=== PATIENT | male | born 1955 | race Caucasian/White ===

== ENCOUNTER 2023-02-18 16:20 | Emergency (ER) | payer BC, SELFPAY ==
[2023-02-18 16:21] VITALS: BP 149/75; PULSE 70; RESP 18; TEMP 36.8; O2SAT 98; BMI 29.7
[2023-02-18 17:19] LABS: Apearance,Urine Clear (Clear); Bilirubin,Urine Negative (Negative); Blood, Urine Negative (Negative); Color,Urine Yellow (Yellow); Glucose,Urine (UA) Negative (Negative); Ketones,Urine Negative (Negative); PH,Urine 5.5 (5.0-8.5); Protein,Urine Negative (Negative); Specific Gravity, Urine 1.005 (1.005-1.030); UTC Leukocyte Esterase,Urine Negative (Negative); UTC Nitrate,Urine Negative (Negative); Urobilinogen,Urine 0.2 EU/dl (0.2)
--- NOTE | 2023-02-18 17:38 | EXP.UTC ---
Discharge Plan Disposition Patient Disposition: Home, Self-Care Condition: Good Prescriptions Prescriptions: New meclizine 25 mg tablet 25 mg PO TID PRN (Reason: dizziness or vertigo) Qty: 15 0RF fluticasone propionate [Flonase Allergy Relief] 50 mcg/actuation spray,suspension 1 - 2 spray intranasal DAILY Qty: 16 0RF Rx Instructions: administer into each nostril daily Referrals Follow up/Referrals: Provider,Referral, MD [Primary Care Provider] - See instructions Activity Restrictions/Add. Instructions Additional Instructions/Restrictions: Slow steady movements and make sure to sit on edge of bed before standing to make sure that you are not going to get dizzy If you have any chest pain, feeling of heart beating hard or irregular go straight to ER If any confusion, headache or dizziness gets worse go straight to ER FOllow up with your Family Doctor if no improvement or any worsening of symptoms Take medication as prescribed Do not drive while feeling dizzy or if you took the medication it may make you drowsy Clinical Impressions Clinical Impression: Dizziness Instructions Patient Instructions: Vertigo, DI for Vertigo, Meclizine Discharge ED Provider: Barbara Collado [facility] General Stated complaint: dizzy Mode of Arrival: Ambulatory Source of Information: Patient Limitations: No Limitations Time Seen by Provider: 02/18/23 16:55 Description of Symptoms (Recalled from Triage Doc. by RN): Patient stated he got dizzy at work at lunch time. Says its better not but he wanted to get it checked out. 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 and when he turned back he felt like road felt tilted States that he shook his head and felt like it started spinning States that he stopped and sit there for a little bit and it started getting better States that he is feeling better now and only feels dizzy when he turns his head States that he did this about 12 yrs ago and they told him it was his inner ear Denies chest pain denies SOA Denies palpitations Denies vision changes Related Data Previous Rx's Medication Instructions Recorded fluticasone propionate 50 1 - 2 spray intranasal DAILY #16 02/18/23 mcg/actuation nasal grams spray,suspension (Flonase Allergy Relief) meclizine 25 mg tablet 25 mg PO TID PRN dizziness or 02/18/23 vertigo #15 tabs Allergies Allergy/AdvReac Type Severity Reaction Status Date / Time No Known Allergies Allergy Verified 02/18/23 16:45 Worker's Comp Is this a Worker's Comp case?: No PFSH [facility] Disclaimer: The information contained in this section may have been updated after the patient was seen, as this information can be updated by other users. Social History Smoking Status: Never smoker alcohol intake: never current occupational status: employed Travel in the last 8 weeks: None ROS Obtained: Yes All systems reviewed & no additional complaints except as documented and Yes Systems reviewed as appropriate & no additional complaints except as documented Constitutional Constitutional: Reports system reviewed and no additional complaints, except as documented and Reports as per HPI ENT Ears, Nose, Mouth, and Throat: Reports system reviewed and no additional complaints, except as documented, Reports as per HPI and Reports dizziness Cardiovascular Cardiovascular: Reports system reviewed and no additional complaints, except as documented, Reports as per HPI, Denies chest pain, Denies chest pain at rest, Denies dyspnea, Denies dyspnea on exertion, Denies irregular heart rhythm, Denies leg edema, Denies orthopnea, Denies palpitations and Denies paroxysmal noctu
[2023-02-18 17:57] VITALS: BP 149/75; PULSE 70; RESP 18; TEMP 36.8; O2SAT 98
== END 2023-02-18 17:58 | disposition home or self-care (01) ==
PROVIDERS: Emergency Provider Nurse Practitioner
DX: R42 Dizziness and giddiness (principal)
CPT/HCPCS: 81003; 99204; 99212; G0463

== ENCOUNTER 2023-08-27 14:02 | Emergency (ER) | payer BC, SELFPAY ==
[2023-08-27 14:04] VITALS: BP 138/88; PULSE 70; RESP 19; TEMP 37; O2SAT 98; BMI 29.7
--- NOTE | 2023-08-27 14:38 | ED_ITS ---
Discharge Plan Disposition Patient Disposition: Home, Self-Care Condition: Good Prescriptions Prescriptions: New azithromycin [Zithromax Z-Jesse] 250 mg tablet See Rx Instructions .ROUTE .COMPLEX 5 Days Qty: 6 0RF Rx Instructions: For 250 mg dose pack: take 500 mg today (day 1), then 250 mg for 4 days (days 2-5) No Action meclizine 25 mg tablet 25 mg PO TID PRN (Reason: dizziness or vertigo) Qty: 15 0RF fluticasone propionate [Flonase Allergy Relief] 50 mcg/actuation spray,suspension 1 - 2 spray intranasal DAILY Qty: 16 0RF Rx Instructions: administer into each nostril daily Referrals Follow up/Referrals: Brittaney Brito PA [Primary Care Provider] - See instructions Activity Restrictions/Add. Instructions Additional Instructions/Restrictions: *Monitor Temp, Over the counter Motrin or Tylenol as directed/as needed Tylenol every 4 hours and Motrin every 6 hours (as long as your family doctor has told you that you can take it) for fever or pain. and straight to ER if unable to lower temp less than 101.0 after medication given *Warm salt water gargles may help to soothe the throat *Throat Lozenges? *Warm fluids like tea with honey may help to soothe the throat? *Sleep elevated *Humidifier/Vaporizer Your throat swab was sent for culture. Those results are typically sent to your primary care. Be sure to follow up in 2-3 days with your family doctor/primary care physician if no improvement so they can review those result and treat if necessary. If you don?t have a primary care doctor, I recommend you get one but in the mean time, you will have to return to a walk in clinic Follow up IMMEDIATELY for new or worsening symptoms or no Noticeable improvement over the next 48-72 hours. 911 for difficulty breathing or swallowing Clinical Impressions Clinical Impression: Pharyngitis Qualifiers: Pharyngitis/tonsillitis etiology: unspecified etiology Qualified Code(s): J02.9 - Acute pharyngitis, unspecified Stand Alone Forms Stand Alone Forms: Work/School Release Instructions Patient Instructions: Sore Throat Discharge ED Provider: Barbara Collado [facility] HPI General Stated complaint: Cough, st, congestion, body ache Mode of Arrival: Ambulatory Source of Information: Patient Limitations: No Limitations Time Seen by Provider: 08/27/23 14:39 Description of Symptoms (Recalled from Triage Doc. by RN): Patient complaint of dry cough, congestion, body aches and raw throat for 2 days. HEENT Symptoms (Recalled from RN notes): Yes Resp Symptoms (Recalled from RN notes): No Skin Symptoms (Recalled from RN notes): No MS Symptoms (Recalled from RN notes): No Functional Status (Recalled from RN notes): wnl History of Present Illness Provider Complaint: Patient states that for the last couple of days he has been having dry cough, headache, nasal congestion, sore throat and feeling bad States that today his throat was hurting worse and felt raw and irritated so he came in to get checked Related Data Previous Rx's Medication Instructions Recorded fluticasone propionate 50 1 - 2 spray intranasal DAILY #16 02/18/23 mcg/actuation nasal grams spray,suspension (Flonase Allergy Relief) meclizine 25 mg tablet 25 mg PO TID PRN dizziness or 02/18/23 vertigo #15 tabs azithromycin 250 mg tablet See Rx Instructions PO .COMPLEX 5 08/27/23 (Zithromax Z-Jesse) days #6 tabs Allergies Allergy/AdvReac Type Severity Reaction Status Date / Time No Known Allergies Allergy Verified 02/18/23 16:45 Worker's Comp Is this a Worker's Comp case?: No [facility] Disclaimer: The information contained in this section may have been updated after the patient was seen, as this information can be updated by other users. Social History (Updated 02/18/23 @ 20:26 by Barbara Collado APRN) Smoking Status: Never smoker alcohol intake: never current occupational status: employed Travel in the last 8 weeks: None ROS Obtained: Yes All systems reviewed & no additional complaints except as documented and Yes Systems reviewed as appropriate & no additional complaints except as documented Constitutional Constitutional: Reports system reviewed and no additional complaints, except as documented, Reports as per HPI, Reports body ache and Reports headache(s) ENT Ears, Nose, Mouth, and Throat: Reports system reviewed and no additional complaints, except as documented, Reports as per HPI, Reports headache(s), Re ports nasal congestion, Reports nasal discharge and Reports sore throat Cardiovascular Cardiovascular: Reports system reviewed and no additional complaints, except as documented and Reports as per HPI Respiratory Respiratory: Reports system reviewed and no additional complaints, except as documented, Reports as per HPI and Reports cough Gastrointestinal Gastrointestingal: Reports system reviewed and no additional complaints, except as documented and as per HPI Musculoskeletal Musculoskeletal: Reports system reviewed and no additional complaints, except as documented and Reports as per HPI Neurologic Neurologic: Reports headache(s) Physical Exam General General appearance: alert and in no apparent distress ENT ENT exam: Present mucous membranes moist Expanded ENT Exam Nose exam: Present sinus tenderness Throat exam: Present other (Pharyngeal erythema noted with PND) Respiratory Respiratory exam: Present normal lung sounds bilaterally; Absent respiratory distress or wheezes Cardiovascular Cardiovascular exam: Present regular rate, normal rhythm and normal heart sounds Abdominal Exam Abdominal exam: Present soft and normal bowel sounds; Absent distention or tenderness Neurological Exam Neurological exam: Present alert, oriented X3 and normal gait Medical Decision Making Evens Inquiry Pt receiving controlled substance: No Evens was queried for this patient: No Vital Signs: 08/27/23 14:04 Temperature 98.6 F Temperature Source Oral Pulse Rate [Radial] 70 Respiratory Rate 19 Blood Pressure [Right Arm] 138/88 Blood Pressure Mean [Right Arm] 104 Blood Pressure Source [Right Arm] Automatic Cuff Blood Pressure Position [Right Arm] Sitting 02 Sat by Pulse Oximetry 98 Oxygen Delivery Method Room Air Lab Data Lab results reviewed: Yes I reviewed the patient's lab results.
[2023-08-27 14:47] LABS: UTC Strep Screen (Rapid) Negative (Negative)
[2023-08-27 14:48] LABS: UTC Influenza A Antigen Negative (Negative); UTC Influenza B Antigen Negative (Negative)
[2023-08-27 14:54] VITALS: BP 138/88; PULSE 70; RESP 19; TEMP 37; O2SAT 98
== END 2023-08-27 14:55 | disposition home or self-care (01) ==
PROVIDERS: Emergency Provider Nurse Practitioner; PCP Student in an Organized Health Care Education/Training Program
DX: J02.9 Acute pharyngitis, unspecified (principal); R05.9 Cough, unspecified; R09.81 Nasal congestion; R51.9 Headache, unspecified; M79.18 Myalgia, other site; R53.81 Other malaise
CPT/HCPCS: 87804; 87880; 99212; 99214; G0463

== ENCOUNTER 2024-06-25 16:20 | Outpatient (CLI) | payer BC, SELFPAY ==
[2024-06-25 18:13] LABS: Basophils # 0.1 K/mm3 (0-0.2); Basophils % 0.9 % (0.1-2.0); Eosinophils # 0.3 K/mm3 (0.0-0.4); Eosinophils % 6.3 % (0.1-12.0); Hemoglobin 15.5 g/dL (14.1-18.0); Lymphocytes # 1.2 K/mm3 (0.7-4.5); Lymphocytes % 23.1 % (10-50); Mean Corpuscular HGB Conc 32.2 g/dL (31.8-35.4); Mean Corpuscular Hemoglobin 28.6 pg (27.0-31.2); Mean Corpuscular Volume 88.7 fl (80-94); Mean Platelet Volume 10.7 fl (7.4-10.4); Monocytes # 0.4 K/mm3 (0.1-1.0); Monocytes % 7.5 % (1.7-9.3); Neutrophils # 3.3 K/mm3 (1.8-7.8); Neutrophils % 62.2 % (37.0-80.0); Platelet Count 182 K/mm3 (142-424); Red Blood Count 5.42 M/mm3 (4.60-6.20); Red Cell Distribution Width 14.7 % (11.5-17.5); White Blood Count 5.4 K/mm3 (4.8-10.8)
[2024-06-25 18:28] LABS: Alanine Aminotransferase 38 U/L (12-78); Albumin Level 4.3 g/dl (3.5-5.0); Albumin/Globulin Ratio 1.8 (1.1-1.8); Alkaline Phosphatase 94 U/L (38-126); Anion Gap 11.7 mEq/L (5-15); Aspartate Amino Transferase 34 U/L (17-59); Bilirubin,Total 0.7 mg/dl (0.2-1.3); Blood Urea Nitrogen 18 mg/dl (9-20); Carbon Dioxide 24 mmol/L (22.0-30.0); Chloride 108 mmol/L (98-107); Chol/HDL Ratio 5.7 (1-3.5); Cholesterol 250 mg/dl (140-200); Estimated Glomerular Filt Rate 96 ml/min (>60); GFR (African American) 116 ML/MIN (>60); Globulin 2.4 g/dL (1.3-3.2); Glucose 80 mg/dl (74-100); HDL Cholesterol 44 mg/dl (40-60); Potassium 4.7 mmoL/L (3.5-5.1); Sodium 139 mmol/L (136-145); Total Protein,Serum 6.7 g/dl (6.3-8.2); Triglycerides 217 mg/dl (30-150); VLDL Cholesterol 43 mg/dL (0-40)
[2024-06-25 18:38] LABS: Direct LDL Cholesterol 174.01 mg/dL (100-129)
[2024-06-25 18:44] LABS: Free T4 (Free Thyroxine) 0.91 ng/dl (0.78-2.19); Hemoglobin A1C 5.8 % (4.0-6.0)
[2024-06-25 18:45] LABS: 25-OH Vitamin D, Total 21.9 ng/mL (30-100)
[2024-06-25 19:02] LABS: Prostate Specific Ag Screen 2.5 ng/ml (0.0-4.0); Thyroid Stimulating Hormone 2.01 uIU/mL (0.465-4.68)
== END 2024-06-25 23:59 | disposition home or self-care (01) ==
LOC: LAB.DROPOF 06-28 16:20
PROVIDERS: PCP Student in an Organized Health Care Education/Training Program; Visit Provider Student in an Organized Health Care Education/Training Program
DX: Z12.5 Encounter for screening for malignant neoplasm of prostate (principal); Z13.1 Encounter for screening for diabetes mellitus; Z13.21 Encounter for screening for nutritional disorder; I10 Essential (primary) hypertension; Z86.39 Personal history of other endocrine, nutritional and metabolic disease; E78.5 Hyperlipidemia, unspecified; E55.9 Vitamin D deficiency, unspecified
CPT/HCPCS: 80050; 80053; 80061; 82306; 83036; 84439; 84443; 85025; G0103

== ENCOUNTER 2024-08-02 09:03 | Outpatient (CLI) | payer BC, SELFPAY ==
--- NOTE | 2024-08-02 09:07 | XR_ITS ---
FINAL REPORT CLINICAL HISTORY: neck pain, R shoulder pain COMPARISON: None FINDINGS: RIGHT SHOULDER 4 views demonstrate no acute fracture or dislocation. There is mild acromioclavicular joint degenerative change. The visualized bony structures are well aligned. No soft tissue abnormality is seen. IMPRESSION: Degenerative change without acute process. Reviewed, Interpreted and Dictated by Jonel Galvez III, MD Transcribed by Maricarmen De Jesus Authenticated and [facility]
--- NOTE | 2024-08-02 09:07 | XR_ITS ---
FINAL REPORT CLINICAL HISTORY: neck pain, R shoulder pain COMPARISON: None FINDINGS: CERVICAL SPINE 5 views of the cervical spine were obtained. There is no acute fracture. There is no malalignment. There is moderate left neuroforaminal narrowing at C6-7 and mild right neuroforaminal narrowing at C6-7 and C6-7. There is mild and moderate degenerative change. Multilevel osteophytes are noted. There are chronic calcifications posterior to the lower cervical spine. IMPRESSION: Degenerative changes without acute process. Reviewed, Interpreted and Dictated by Jonel Galvez III, MD Transcribed by Maricarmen De Jesus Authenticated and [facility]
== END 2024-08-02 23:59 | disposition home or self-care (01) ==
LOC: RAD 09:05
PROVIDERS: PCP Student in an Organized Health Care Education/Training Program; Visit Provider Student in an Organized Health Care Education/Training Program
DX: M54.2 Cervicalgia (principal); M25.511 Pain in right shoulder
CPT/HCPCS: 72050; 73030

== ENCOUNTER 2024-10-04 08:40 | Outpatient (CLI) | payer BC, MEDICARE, SELFPAY ==
[2024-10-04 09:09] LABS: Basophils # 0.1 K/mm3 (0-0.2); Basophils % 0.8 % (0.1-2.0); Eosinophils # 0.2 K/mm3 (0.0-0.4); Eosinophils % 3.4 % (0.1-12.0); Hematocrit 46.6 % (42.0-52.0); Hemoglobin 15.2 g/dL (14.1-18.0); Lymphocytes # 1.3 K/mm3 (0.7-4.5); Mean Corpuscular HGB Conc 32.6 g/dL (31.8-35.4); Mean Corpuscular Hemoglobin 27.8 pg (27.0-31.2); Mean Corpuscular Volume 85.2 fl (80-94); Mean Platelet Volume 10.6 fl (7.4-10.4); Monocytes # 0.5 K/mm3 (0.1-1.0); Monocytes % 8.3 % (1.7-9.3); Neutrophils # 3.9 K/mm3 (1.8-7.8); Neutrophils % 65.3 % (37.0-80.0); Platelet Count 180 K/mm3 (142-424); Red Blood Count 5.47 M/mm3 (4.60-6.20); Red Cell Distribution Width 14.6 % (11.5-17.5); White Blood Count 5.9 K/mm3 (4.8-10.8)
[2024-10-04 09:27] LABS: Alanine Aminotransferase 27 U/L (12-78); Albumin Level 4.6 g/dl (3.5-5.0); Albumin/Globulin Ratio 2.2 (1.1-1.8); Alkaline Phosphatase 82 U/L (38-126); Anion Gap 10.7 mEq/L (5-15); Aspartate Amino Transferase 33 U/L (17-59); Bilirubin,Total 0.8 mg/dl (0.2-1.3); Blood Urea Nitrogen 16 mg/dl (9-20); Calcium 9.2 mg/dl (8.4-10.2); Carbon Dioxide 27 mmol/L (22.0-30.0); Chloride 105 mmol/L (98-107); Chol/HDL Ratio 7.4 (1-3.5); Cholesterol 272 mg/dl (140-200); Estimated Glomerular Filt Rate 96 ml/min (>60); GFR (African American) 116 ML/MIN (>60); Globulin 2.1 g/dL (1.3-3.2); Glucose 90 mg/dl (74-100); HDL Cholesterol 37 mg/dl (40-60); Potassium 4.7 mmoL/L (3.5-5.1); Sodium 138 mmol/L (136-145); Total Protein,Serum 6.7 g/dl (6.3-8.2); Triglycerides 335 mg/dl (30-150); VLDL Cholesterol 67 mg/dL (0-40)
[2024-10-04 09:39] LABS: Direct LDL Cholesterol 169.41 mg/dL (100-129)
[2024-10-04 09:43] LABS: INR 0.91 (0.9-1.1); Prothrombin Time 10.1 seconds (9.2-12.1)
[2024-10-04 09:44] LABS: 25-OH Vitamin D, Total 24.1 ng/mL (30-100)
[2024-10-06 08:50] LABS: Peripheral Smear Review Scanned Result
[2024-10-06 15:09] LABS: Factor VIII Activity 73 % (56-140); von Willebrand Factor (vWF) Ag 72 % (50-200)
== END 2024-10-04 23:59 | disposition home or self-care (01) ==
PROVIDERS: PCP Student in an Organized Health Care Education/Training Program; Visit Provider Student in an Organized Health Care Education/Training Program
DX: E55.9 Vitamin D deficiency, unspecified (principal); E78.49 Other hyperlipidemia; R04.0 Epistaxis; I10 Essential (primary) hypertension
CPT/HCPCS: 36415; 80053; 80061; 82306; 85025; 85240; 85245; 85610; 85730

== ENCOUNTER 2024-10-21 08:50 | Day surgery (SDC) | payer BC, MEDICARE, SELFPAY ==
[2024-10-19 15:23] VITALS: BMI 30.5
[2024-10-21 09:23] VITALS: BP 154/60; PULSE 73; RESP 18; TEMP 36.8; O2SAT 96
--- NOTE | 2024-10-21 09:51 | P.PNANES_ITS ---
[facility] Disclaimer: The information contained in this section may have been updated after the patient was seen, as this information can be updated by other users. Medical History Hyperlipemia Hypertension Surgical History H/O colonoscopy with polypectomy Hx of shoulder surgery Right- shoulder H/O right knee surgery orthoscopic Family History Grandmother Cancer skin Father Hypertension Coronary artery disease Mother Diabetes Sister Cancer breast Family/Other Kidney disease kidney stones Social History Smoking Status: Never smoker alcohol intake: never substance use type: denies use current occupational status: employed and retired Travel in the last 8 weeks: None adopted: No caregiver/support person: Yes foster care: No household members: spouse housing: house lives independently: Yes marital status: number of children: 0 number of grandchildren: 0 service: No long term: No pets and animals: Yes Hx Recent Travel: No 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 water heater temp set < 120 deg: Yes working smoke detector in home: Yes fire extinguisher in home: Yes carbon monox detector in home: No Have you lived/traveled outside [place] in past 30 days?: No Contact w/someone who lives/traveled outside US past 30 days?: No Exposure to someone with infectious disease in past 14 days?: No Do you have a fever (greater than 100.4 F or 38 C)?: No Have you tested positive for COVID-19: No Exposed to someone with COVID-19 in past 14 days?: No Do you have a sore throat?: No Do you have a cough?: No Do you have any weakness?: No Do you have any diarrhea?: No Are you experiencing any unusual bleeding?: No Do you have any muscle aches/pain?: No Do you have any abdominal pain?: No Are you experiencing loss of taste or smell?: No [facility] Anesthesia Checklist Patient Identification Patient Identification: Arm Band and Family Structural Data Admitted From: Home Planned Operative Procedure/s: colonoscopy Consent for Planned Operative Procedure(s) Verified: Yes Verified Documents: Surgical Consent and History and Physical NPO Status Verified Time NPO: 00:00 Additional verifications Patient : No Anesthesia Reactions: No Hx Blood Transfusions: No Blood Transfusion Reaction: No Cephalosporin Allergy: No Previous Colonoscopy: Yes Airway Assessment Mallampati Score:: Class II C-Spine Mobility Assessed: Yes TMJ Mobility Assessed: Yes Dentition: Good Dentition Neurological Assessment Level of Consciousness: Awake, Alert, Appropriate and Follows Commands Hx Seizures: No Numbness or tingling in extremities: No Anesthesia Plan Anesthesia Risk discussed: Yes ASA Class: II Anesthesia Type: MAC Preoperative Comments Pre-Operative Comments: Allergic to shellfish. Hypertention.
--- NOTE | 2024-10-21 10:50 | EXP.HP ---
History of Present Illness *Admission Date: 10/21/24 *History of present illness: Mr. Forrest is a 69-year-old gentleman who is here for surveillance colonoscopy. He did have a colonoscopy many years ago and had polyps removed and is overdue. This was done in [place]. The examination is deemed medically necessary for surveillance colonoscopy. The patient has been seen, interviewed and examined prior to the procedure by both myself and the anesthesia provider. [facility] Disclaimer: The information contained in this section may have been updated after the patient was seen, as this information can be updated by other users. Medical History Hyperlipemia Hypertension Surgical History H/O colonoscopy with polypectomy Hx of shoulder surgery Right- shoulder H/O right knee surgery orthoscopic Family History Grandmother Cancer skin Father Hypertension Coronary artery disease Mother Diabetes Sister Cancer breast Family/Other Kidney disease kidney stones Social History Smoking Status: Never smoker alcohol intake: never substance use type: denies use current occupational status: employed and retired Travel in the last 8 weeks: None adopted: No caregiver/support person: Yes foster care: No household members: spouse housing: house lives independently: Yes marital status: number of children: 0 number of grandchildren: 0 service: No long term: No pets and animals: Yes Hx Recent Travel: No 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 water heater temp set < 120 deg: Yes working smoke detector in home: Yes fire extinguisher in home: Yes carbon monox detector in home: No Have you lived/traveled outside US in past 30 days?: No Contact w/someone who lives/traveled outside US past 30 days?: No Exposure to someone with infectious disease in past 14 days?: No Do you have a fever (greater than 100.4 F or 38 C)?: No Have you tested positive for COVID-19: No Exposed to someone with COVID-19 in past 14 days?: No Do you have a sore throat?: No Do you have a cough?: No Do you have any weakness?: No Do you have any diarrhea?: No Are you experiencing any unusual bleeding?: No Do you have any muscle aches/pain?: No Do you have any abdominal pain?: No Are you experiencing loss of taste or smell?: No Other Medical History Have you received the Pneumonia Vaccine: Yes Review of Systems Review of Systems Review of systems (narrative): Negative *Cardiovascular Comments: Negative *Gastrointestinal Comments: Negative *Genitourinary Comments: Negative *Musculoskeletal Comments: Negative *Neurologic Comments: Negative Meds Home Medications and Allergies Home Medications ?Medication ?Instructions ?Recorded ?Confirmed ?Type atenolol 50 mg tablet 50 mg PO DAILY #90 tabs 08/02/24 10/19/24 Rx rosuvastatin 40 mg tablet 40 mg PO DAILY #90 tabs 08/02/24 10/19/24 Rx ezetimibe 10 mg tablet 10 mg PO DAILY #30 tabs 10/05/24 10/19/24 Rx New Prescriptions to Start Prescriptions: Allergies Allergy/AdvReac Type Severity Reaction Status Date / Time shellfish derived Allergy Intermediate Rash Verified 10/21/24 09:21 Seafood Allergy Intermediate Rash Uncoded 10/19/24 15:20 Exam Data for Last 24 hours Vital signs and Labs for Last 24 Hours: Temp Pulse Resp BP Pulse Ox O2 Del Method 98.2 F 73 18 154/60 H 96 Room Air 10/21/24 09:23 10/21/24 09:23 10/21/24 09:23 10/21/24 09:23 10/21/24 09:23 10/21/24 09:23 I & O for Last 24 hours: Intake & Output 10/18/24 10/19/24 10/20/24 10/21/24 23:59 23:59 23:59 23:59 Weight 195 lb *Routine HEENT Exam Head: Present normocephalic Eye: Present EOMI and PERRL ENT: Present mucous membranes moist *Routine Neck Exam Neck: Present supple *Routine Respiratory Exam Respiratory: Present CTA bilaterally *Routine Cardiovascular Exam Cardiovascular: Present RRR *Routine Abdominal Exam Abdominal: Present soft and normoactive bowel sounds; Absent tenderness *Routine Rectal Exam Rectal:: deferred *Routine Genitalia Exam Genitalia:: deferred *Routine Extremities Exam Extremities: Absent cyanosis, clubbing or edema *Routine Skin Exam Skin: Present warm; Absent rash *Routine Neurological Exam Neurological: Present alert and oriented X3 Assessment and Plan *Assessment and plan (1) Personal history of colon polyps, unspecified: Status: Acute Category: Medical Code(s): Z86.0100 - Personal history of colon polyps, unspecified Plan A/P: 1. Surveillance colonoscopy?personal history of colon polyps is the preprocedural diagnosis. The patient will be anesthetized/sedated using MAC sedation. The patient has been seen and examined. Cardiac and lung assessment prior to the examination is stable. Proceed with planned surveillance colonoscopy
[2024-10-21 11:00] VITALS: O2SAT 96
--- NOTE | 2024-10-21 11:07 | P.PCN_ITS ---
[facility] Procedure Note Date: 10/21/24 Time: 11:20 Procedure Note:: Colonoscopy Procedure Report: Colonoscopy with cold snare polypectomy Endoscopist: Mark White II, MD Referring physician: Brittaney Brito PA-C Date of Procedure: October 21, 2024 Equipment: Olympus 190 variable stiffness pediatric colonoscope Sedation: MAC sedation Indication: Mr. Forrest is a 69-year-old gentleman who is here for surveillance colonoscopy. He did have a colonoscopy many years ago in [place] and had polyps removed. He was due to return in 5 years based upon polyp pathology. He reports no rectal bleeding, abdominal pain, weight loss or change in bowel habits. He reports no family history of colon cancer. Procedure: Prior to the procedure, a history and physical exam was performed, and patient's medications and allergies were reviewed. The risks, benefits and alternatives of the sedation and procedure were discussed with the patient. All questions were answered and informed consent was obtained. The patient was brought to the procedure room. Patient identification and proposed procedure were verified by the physician and the nurse. The patient was placed in a left lateral decubitus position and the scope was passed under direct vision. Throughout the procedure, the patient's blood pressure, pulse, and oxygen saturations were monitored continuously. The colonoscopy was accomplished without difficulty. The patient tolerated the procedure well. Findings: On digital rectal examination there was normal rectal tone. The prostate was 2+, smooth, soft, symmetric without nodules. There were no external hemorrhoids. The colonoscope was introduced through the anal canal to the rectum and advanced to the cecum. The ileocecal valve and appendiceal orifice were identified. The scope was advanced a short distance into the ileum which appeared grossly normal. The scope was then withdrawn into the colon. There were 2 polyps (ascending x 1 (3 mm) and sigmoid x 1 (3 to 4 mm)). Both of these were removed via cold snare polypectomy. The remaining cecum, ascending and transverse colon and mucosa were grossly normal. There were scattered diverticuli throughout the descending and sigmoid colon (LEFT colon). The rectum itself was normal. Upon retroflexion within the rectum there were grade 1-2 internal hemorrhoids. The preparation was excellent throughout with [place] Preparation Score of 9. The cecal time was 12 minutes. Impression: 1. Diminutive colonic polyps x 2 2. Left-sided diverticulosis 3. Grade 1-2 internal hemorrhoids Plan: I will follow-up the polyp histology and recommend repeat surveillance colonoscopy again in 7 years. I would encourage psyllium bulking fiber supplementation on a long-term daily maintenance basis.
[2024-10-21 11:26] VITALS: BP 109/48; PULSE 69; RESP 15; TEMP 36.6; O2SAT 95
[2024-10-21 11:36] VITALS: BP 122/59; PULSE 64; RESP 16; O2SAT 98
[2024-10-21 11:46] VITALS: BP 124/66; PULSE 60; RESP 16; O2SAT 98
[2024-10-21 11:56] VITALS: BP 129/73; PULSE 62; RESP 18; O2SAT 100
== END 2024-10-21 12:14 | disposition home or self-care (01) ==
PROVIDERS: Visit Provider Internal Medicine Gastroenterology
PROC: 0DJD8ZZ Inspection of Lower Intestinal Tract, Via Natural or Artificial Opening Endoscopic (ICD-10-PCS; CPT 45378; principal; 2024-10-21 10:30)
DX: K63.5 Polyp of colon (principal); K57.30 Diverticulosis of large intestine without perforation or abscess without bleeding; K64.8 Other hemorrhoids; Z86.0100 Personal history of colon polyps, unspecified
CPT/HCPCS: 45385

== ENCOUNTER 2024-11-17 09:59 | Outpatient (CLI) | payer BC, MEDICARE, SELFPAY ==
[2024-11-17 14:52] LABS: Cholesterol 253 mg/dl (140-200); Triglycerides 202 mg/dl (30-150); VLDL Cholesterol 40 mg/dL (0-40)
[2024-11-17 15:03] LABS: Direct LDL Cholesterol 165.08 mg/dL (100-129)
[2024-11-17 15:11] LABS: Hepatitis C Ab Qual. W/ RFX NEGATIVE (Negative)
[2024-11-17 15:18] LABS: HDL Cholesterol 42 mg/dl (40-60)
[2024-11-17 15:24] LABS: HIV Combo NEGATIVE (Negative)
== END 2024-11-17 23:59 | disposition home or self-care (01) ==
LOC: LAB.DROPOF 11-18 10:30
PROVIDERS: PCP Nurse Practitioner Family; Visit Provider Nurse Practitioner Family
DX: Z11.59 Encounter for screening for other viral diseases (principal); Z11.4 Encounter for screening for human immunodeficiency virus [HIV]; E78.49 Other hyperlipidemia; I10 Essential (primary) hypertension
CPT/HCPCS: 80061; 86803; 87389

== ENCOUNTER 2025-01-04 07:39 | Outpatient (CLI) | payer BC, MEDICARE, SELFPAY ==
--- NOTE | 2025-01-04 | CA_ITS ---
APPROVED REPORT EXAM: Comprehensive 2D, Doppler, and color-flow Echocardiogram Fish Frog Or Oyster Farmer: Snow Robertson CRT Ht: 5 ft 5 in Wt: 196lbs BSA: 1.96 BP: 169/57 mmHg Indications: Murmur, Hyperlipidemia, Hypertension/HDD 2D Dimensions LA Volume 45.70 mL LA Volume Index 22.70 mL/m2 (M/F) 16-34 M-Mode Dimensions RVDd 2.47 cm (0.9-2.6) LA Diam 4.73 cm (1.9-4.0) LVDd 5.77 cm (3.5-5.7) LVDs 3.72 cm (3.5-5.7) IVSd 1.97 cm (0.6-1.1) PWd 0.87 cm (0.6-1.1) EF (Teich) 64.20% FS 35.50% EDV (Teich) 164.60 mL TAPSE 2.35 (<1.7) ESV (Teich) 58.90 mL LV Diastology E Decel Time 143 (160-240 msec) E/A Ratio 1.94 MED A' 5.10 cm/s LAT A' 2.90 cm/s Aortic Valve YAYO Index 1.50 cm2/m2 AoV Peak Edgardo. 158.0 (50-130 cm/s) AI PHT 330.00 ms AO Peak GR. 10.00 mmHg AO Mean GR. 5.20 (<5 mmHg) AO VTI 33.5 (18-25 cm) YAYO (VTI) 3.01 (2.5-4.5 cm2) Mitral Valve MV E Max Edgardo. 113.0 (40-130 cm/s) MV A Velocity 58.0 (40-130 cm/s) E/A Ratio 1.94 MV PHT 42.0 ms Pulmonary Valve PV Peak Velocity 273.0 (50-150 cm/s) Tricuspid Valve TR P. Velocity 254.00 cm/s RAP Estimate 10.00 mmHg RVSP 35.90 mmHg Left Ventricle The left ventricle is normal size. The left ventricular systolic function is normal. The left ventricular ejection fraction is within the normal range. There is increased LV wall thickness. Diastolic function is indeterminate. There is normal LV segmental wall motion. LVEF is 55%. Right Ventricle The right ventricle is normal size. The right ventricular systolic function is normal. Atria Left atrium is mildly dilated. The right atrium size is normal. There is no Doppler evidence of interatrial shunt. Aortic Valve The aortic valve is mildly thickened. Moderate aortic regurgitation is present. There is no aortic valvular stenosis. Mitral Valve The mitral valve is normal in structure. No evidence of mitral valve stenosis. Mild mitral regurgitation is present. Tricuspid Valve Tricuspid valve is grossly normal in structure and function. Trace tricuspid regurgitation. There is insufficient TR jet to estimate RVSP. Pulmonic Valve The pulmonary valve is normal in structure. Trace pulmonic regurgitation. Great Vessels The aortic root is normal in size. The ascending aorta is mildly dilated, measuring 4.0 cm in diameter. IVC is normal in size and collapses >50% with inspiration. Pericardium There is no pericardial effusion. Other Information Study Quality: Fair Conclusion Normal biventricular systolic function. Mild LA dilation. Moderate AI. Mild MR. The ascending aorta is mildly dilated, measuring 4.0 cm in diameter. In the setting of mildly dilated ascending aorta on TTE, correlation with new or recent CTA chest is suggested. Electronically signed by : Ronit Simms MD 01/11/2025 12:35:35
== END 2025-01-04 23:59 | disposition home or self-care (01) ==
LOC: RT 07:40
PROVIDERS: PCP Family Medicine; Visit Provider Family Medicine
DX: I51.7 Cardiomegaly (principal); I34.0 Nonrheumatic mitral (valve) insufficiency; R01.1 Cardiac murmur, unspecified
CPT/HCPCS: 93306

== ENCOUNTER 2025-01-28 07:24 | Outpatient (CLI) | payer BC, MEDICARE, SELFPAY ==
[2025-01-28 07:47] LABS: Blood Urea Nitrogen 21 mg/dl (9-20); Estimated Glomerular Filt Rate 96 ml/min (>60); GFR (African American) 116 ML/MIN (>60)
--- NOTE | 2025-01-28 08:00 | CT_ITS ---
FINAL REPORT TECHNIQUE: The patient was injected with IV contrast. Axial images were obtained through the chest in a PE protocol. 3-D reconstruction images were also performed. Individualized dose reduction techniques using automated exposure control or adjustment of the MA and/or KV according to patient's size were employed. CLINICAL HISTORY: Aortic dilation COMPARISON: None FINDINGS: The aorta is enlarged measuring 4.1 cm in diameter. No pulmonary artery filling defects are identified to suggest PE. There is no significant mediastinal mass or adenopathy. The heart size is normal. Lung window images demonstrate no discrete nodules. There is no pericardial or pleural effusion. Limited images of the upper abdomen demonstrate a benign-appearing cyst in the left lobe of the liver. The cyst measures 2.1 cm in diameter. IMPRESSION: Aneurysm of ascending aorta measuring 4.1 cm in diameter. Reviewed, Interpreted and Dictated by Dell Luong MD Transcribed by Maricarmen De Jesus Authenticated and [facility]
[2025-01-28] MEDS: SODIUM CHLORIDE 0.9% 10ML SYR (RAD ONLY) 10 ML IV (08:21)
[2025-01-28] MEDS: 0.9 % SODIUM CHLORIDE 50 ML VIAL IV (08:21)
[2025-01-28] MEDS: IOPAMIDOL-370 (76%);100ML BOTTLE 100 ML IV (08:21)
== END 2025-01-28 23:59 | disposition home or self-care (01) ==
LOC: RAD 07:25
PROVIDERS: PCP Family Medicine; Visit Provider Family Medicine
DX: I71.21 Aneurysm of the ascending aorta, without rupture (principal)
CPT/HCPCS: 36415; 71275; 82565; 84520; Q9967

== ENCOUNTER 2025-02-21 09:59 | Outpatient (CLI) | payer BC, MEDICARE, SELFPAY ==
[2025-02-21 19:21] LABS: Albumin Level 4.8 g/dl (3.5-5.0); Chloride 103 mmol/L (98-107); Potassium 5.4 mmoL/L (3.5-5.1); Sodium 139 mmol/L (136-145)
[2025-02-21 19:23] LABS: Alanine Aminotransferase 29 U/L (12-78); Aspartate Amino Transferase 30 U/L (17-59); Blood Urea Nitrogen 24 mg/dl (9-20); Estimated Glomerular Filt Rate 96 ml/min (>60); GFR (African American) 116 ML/MIN (>60)
[2025-02-21 19:24] LABS: Albumin/Globulin Ratio 1.7 (1.1-1.8); Alkaline Phosphatase 101 U/L (38-126); Anion Gap 16.4 mEq/L (5-15); Bilirubin,Total 0.6 mg/dl (0.2-1.3); Calcium 9.7 mg/dl (8.4-10.2); Carbon Dioxide 25 mmol/L (22.0-30.0); Chol/HDL Ratio 5.4 (1-3.5); Cholesterol 241 mg/dl (140-200); Globulin 2.9 g/dL (1.3-3.2); Glucose 104 mg/dl (74-100); HDL Cholesterol 45 mg/dl (40-60); Total Protein,Serum 7.7 g/dl (6.3-8.2); Triglycerides 212 mg/dl (30-150); VLDL Cholesterol 42 mg/dL (0-40)
[2025-02-21 19:36] LABS: Direct LDL Cholesterol 154.98 mg/dL (100-129)
--- OUTSIDE RECORDS SUMMARY | 2025-02-23 10:03 | XMS_ITS | Clinical Summary ---
Author Organization [facility] Address [address] [place] [address] Care Team Providers Care Hourly Manager Name Role Phone Unavailable Primary Care Provider Unavailabl e Family History Medical History Relation Name Comments Hypertension Other Relation Name Status Comments Other Social History Tobacco Use Types Packs/Day Years Used Date Smoking Tobacco: Never Sex and Gender Information Value Date Recorded Sex Assigned at Not on file Legal Sex Male 7:47 PM EDT Gender Identity Not on file Sexual Orientation Not on file Plan of Treatment Upcoming Encounters Date Type Department Care Team (Late st Contact Info) Description 05/11/2025 1:30 PM EDT Office Visit [facility] [place] [address] [facility], [address] [place] [address] Jason Haji, DO [address] [place] [phone] Health Maintenance Due Date Last Done Comments [facility]-Depression Screening 1955 [facility]-Hepatitis C Screening 1955 [facility]-/Child/Adol SDOH Screenings 1955 [facility]- SDOH Screenings 1973 [facility]-Adult SDOH Screenings 1973 [facility]-DTaP,Tdap,and Td Vaccines (1 - Tdap) 1974 CT Colonography 2000 Colonoscopy 2000 FIT-DNA 2000 FIT 2000 FOBT 2000 Sigmoidoscopy 2000 [facility]-Colorectal Cancer Screening 2000 [facility]-Pneumococcal Vaccine: 50+ Years (1 of 1 - PCV) 2005 [facility]-Zoster Vaccines (1 of 2) 2005 [id number] Vaccine ( season) 2024 06/22/2022, 01/19/2022, 07/12/2021, Additional history exists [facility]-Influenza Vaccine (Season Ended) 2025 [facility]-RSV Vaccine: 60+ Years or (1 - 1-dose 75+ series) 2030 HPV Vaccines Aged Out No longer eligi ble based on patient's age to complete this topic [facility]-HIB Vaccines Aged Out No longer e ligible based on patient's age to complete this topic [facility]-Hepatitis A Vaccines Aged Out No longer eligible based on patient's age to complete this topic UKY-IPV Vaccines Aged Out No longer e ligible based on patient's age to complete this topic [facility]-Rotavirus Vaccines Aged Out No lo nger eligible based on patient's age to complete this topic
== END 2025-02-21 23:59 | disposition home or self-care (01) ==
LOC: LAB.DROPOF 02-23 10:00
PROVIDERS: PCP Family Medicine; Visit Provider Family Medicine
DX: E78.5 Hyperlipidemia, unspecified (principal); I10 Essential (primary) hypertension
CPT/HCPCS: 80053; 80061

== ENCOUNTER 2025-02-23 14:13 | Outpatient (CLI) | payer BC, MEDICARE, SELFPAY ==
--- OUTSIDE RECORDS SUMMARY | 2025-02-23 14:17 | XMS_ITS | Clinical Summary ---
Author Organization [facility] Address [address] [place] [address] Care Team Providers Care Shop Mechanic Name Role Phone Unavailable Primary Care Provider [...] Description 05/11/2025 1:30 PM EDT Office Visit [facility] [place] [address], [address] [place] [address] Jason Haji, DO [address] [id number] Health Maintenance Due Date Last Done Comments [...] 2005 [facility]-Zoster Vaccines (1 of 2) 2005 [id number] Vaccine ( season) 2024 06/22/2022, 01/19/2022, 07/12/2021, [...]
[2025-02-23 15:44] LABS: Free T4 (Free Thyroxine) 0.71 ng/dl (0.78-2.19)
[2025-02-23 15:46] LABS: Free Thyroxine Index 1.8 ug/dL (5.93-13.13); T4 (Thyroxine) 5.4 ug/dl (5.53-11.0); Triiodothryronine (T3) Uptake 34 % (23.5-40.5)
[2025-02-23 15:58] LABS: Thyroid Stimulating Hormone 2.06 uIU/mL (0.465-4.68)
[2025-02-23 15:59] LABS: Thyroid Stimulating Hormone 2.04 uIU/mL (0.465-4.68)
[2025-02-23 18:15] LABS: Hemoglobin A1C 6.9 % (4.0-6.0)
== END 2025-02-23 23:59 | disposition home or self-care (01) ==
LOC: LAB 14:16
PROVIDERS: PCP Family Medicine; Visit Provider Nurse Practitioner
DX: I77.810 Thoracic aortic ectasia (principal); I10 Essential (primary) hypertension; R06.09 Other forms of dyspnea; R73.03 Prediabetes; R42 Dizziness and giddiness
CPT/HCPCS: 36415; 83036; 84436; 84439; 84443; 84479

== ENCOUNTER 2025-03-08 07:06 | Outpatient (CLI) | payer BC, MEDICARE, SELFPAY ==
--- NOTE | 2025-03-08 | CA_ITS ---
APPROVED REPORT Exam: Pharmacologic Technologist: Germania Taylor Ht: 5 ft 7 in Wt: 197 lbs BSA: 2.01 m2 HR: 55 bpm BP: 151/49 mmHg Stress Test Details Test: Lexiscan HR Resting HR: 55 bpm Max Heart Rate (APMHR): 151 bpm Max HR Achieved: 77 bpm Target HR (85% APMHR): 128 bpm % of APMHR: 51 Recovery HR: 63 bpm BP Resting BP: 151.0/49.0 mmHg Max BP: 153.0/53.0 mmHg Recovery BP: 153.0/53.0 mmHg ECG Resting ECG: Sinus bradycardia Stress ECG Conclusion Symptoms: Dyspnea Arrhythmias/Ectopy: - ST-T Changes: Baseline ST depression. Conclusion: Baseline abnormal ST depression. EKG unremarkable due to Lexiscan infusion. Electronically signed by : Ronit Simms MD 03/08/2025 23:26:00
--- OUTSIDE RECORDS SUMMARY | 2025-03-08 07:09 | XMS_ITS | Encounter Summary ---
Author Organization [facility] Address [address] [place] [address] Care Team Providers Care Food Preparation Worker Name Role Phone Kamran Singh MD Primary Care Provider +1- [phone] Encounter Details Date Type Department Care Team (Late st Contact Info) Description 01/04/2025 Orders Only External Location [address] [place] [id number] Provider, External Social History Tobacco Use Types Packs/Day Years Used Date Smoking Tobacco: Never Sex and Gender Information Value Date Recorded Sex Assigned at Not on file Legal Sex Male 7:47 PM EDT Gender Identity Not on file Sexual Orientation Not on file documented as of this encounter Plan of Treatment Upcoming Encounters Date Type Department Care Team (Late st Contact Info) Description 03/10/2025 9:00 AM EDT Consult [facility] [address], [address] [place] [address] Phillip Clark MD [address] [facility] [address] [place] [address] 05/11/2025 1:30 PM EDT Office Visit [facility] [place] [address], [address] [place] [address] Jason Haji DO [address] [place], [place] [phone] documented as of this encounter Procedures Procedure Name Priority Date/Time Associated Diagnosis Comments US OUTSIDE IMAGES 01/04/2025 7:37 AM EDT documented in this encounter Results * US OUTSIDE IMAGES (01/04/2025 7:37 AM EDT) Anatomical Region Laterality Modality Ultrasound 01/04/2025 7:37 AM EDT us External Provider IMG US PROCEDURES Final Result documented in this encounter Visit Diagnoses Not on filedocumented in this encounter Care Teams Food Preparation Worker Relationship Specialty Start Date End Date Kamran Singh MD [address] [place] [address] PCP - General 02/28/25 documented as of this encounter
--- OUTSIDE RECORDS SUMMARY | 2025-03-08 07:09 | XMS_ITS | Encounter Summary ---
Author Organization [facility] Address [address] [place] [address] Care Team Providers Care Transit Driver Name Role Phone Kamran Singh MD Primary Care Provider +1- [phone] Encounter Details Date Type Department Care Team (Late st Contact Info) Description 01/28/2025 Orders Only External Location [address] [place] [address] Provider, External Social History Tobacco Use Types [...] Info) Description 03/10/2025 9:00 AM EDT Consult [facility] [address], [address] [place] [address] Phillip Clark MD 0 [facility] [address] [place] [address] 05/11/2025 1:30 PM EDT Office Visit [facility] [place] [address], [address] [place] [address] Jason Haji DO [address] [place], [place] [phone] documented as of this encounter Procedures Procedure Name Priority Date/Time Associated Diagnosis Comments CT OUTSIDE IMAGES 01/28/2025 8:06 AM EDT documented in this encounter Results * CT OUTSIDE IMAGES (01/28/2025 8:06 AM EDT) Anatomical Region Laterality Modality Computed Tomogra phy 01/28/2025 8:06 AM EDT us External Provider IMG CT PROCEDURES Final Result documented in this encounter Visit Diagnoses Not on filedocumented in this encounter Care Teams Transit Driver Relationship Specialty Start Date End Date Kamran Singh MD [address] [place] [address] PCP - General 02/28/25 documented as of this encounter
--- OUTSIDE RECORDS SUMMARY | 2025-03-08 07:09 | XMS_ITS | Clinical Summary ---
Author Organization [facility] Address [address] [place] [address] Care Team Providers Care Field Superintendent Name Role Phone Kamran Singh MD Primary Care Provider +1- [phone] Encounters Date Type Department Care Team Description 01/28/2025 Orders Only External Location [address] [place] [address] Provider, External 01/04/2025 Orders Only External Location [address] [place] [address] Provider, External from Last 3 Months Family History Medical History Relation Name Comments [...] Info) Description 03/10/2025 9:00 AM EDT Consult [facility] [address], [facility] [address] [place] [address] Phillip Clark MD [address] [place] [address] 05/11/2025 1:30 PM EDT Office Visit [facility] [place] [address], [address] [place] [address] Jason Haji, DO [address] [place] [address] Health Maintenance Due Date Last Done Comments [facility]-Depression Screening 1955 [facility]-Hepatitis C Screening 1955 [facility]-Medicare Annual Wellness (AWV) 1955 [facility]-Infant/Child/Adol SDOH Screenings 1955 [facility]- SDOH Screenings 1973 [facility]-Adult SDOH Screenings 1973 [facility]-DTaP,Tdap,and Td Vaccines (1 - Tdap) 1974 CT Colonography 2000 Colonoscopy 2000 FIT-DNA 2000 FIT 2000 FOBT 2000 Sigmoidoscopy 2000 [facility]-Colorectal Cancer Screening 2000 [facility]-Pneumococcal Vaccine: 50+ Years (1 of 1 - PCV) 2005 [facility]-Zoster Vaccines (1 of 2) 2005 [id number] Vaccine ( season) 2024 06/22/2022, 01/19/2022, 07/12/2021, Additional history exists [facility]-Influenza Vaccine (#1) 2025 [facility]-RSV Vaccine: 60+ Years or (1 [...] on patient's age to complete this topic Procedures Procedure Name Priority Date/Time Associated Diagnosis Comments CT OUTSIDE IMAGES 01/28/2025 8:06 AM EDT US OUTSIDE IMAGES 01/04/2025 7:37 AM EDT from Last 3 Months Results * CT OUTSIDE IMAGES (01/28/2025 8:06 AM EDT) Anatomical Region Laterality Modality Computed Tomogra phy 01/28/2025 8:06 AM EDT us External Provider IMG CT PROCEDURES Final Result * US OUTSIDE IMAGES (01/04/2025 7:37 AM EDT) Anatomical Region Laterality Modality Ultrasound 01/04/2025 7:3 7 AM EDT us External Provider IMG US PROCEDURES Final Result from Last 3 Months Insurance [facility] MEDICARE Care Teams Field Superintendent Relationship Specialty Start Date End Date Kamran Singh MD [address] [place] [address] PCP - General 02/28/25
--- NOTE | 2025-03-08 07:30 | NM_ITS ---
APPROVED REPORT Exam: Nuclear Stress Test Indication: Chest pain, SOB, HTN, High cholesterol, Family history Patient Location: Outpatient Stress Tech: Germania Taylor [place] Tech:Breanne Isaacs, ARRT, RT (R)(N) Ht: 5 ft 7 in Wt: 185 lbs HR: 54 bpm BP: 151/49 mmHg BSA: 1.96 m2 TID: 1.04 BMI: 28.9 History: Chest pain, SOB, HTN, High cholesterol, Family history Procedure: Patient received 0.4 mg of intravenous Lexiscan, resting heart rate 54 bpm, resting blood pressure 151/49 mmHg, with Lexiscan maximum heart rate achieved was 78 bpm which is % of the maximum predicted heart rate and blood pressure was 155/53 mmHg. With Lexiscan, patient denied any complaint of chest pain. Cardiac Stress and Resting SPECT Images: Cardiac Stress and Resting SPECT images were obtained using technetium 99m Myoview 30.5 mCi stress and 10.99 mCi at rest. Resting and stress imaging in supine and prone positions demonstrate a medium sized, moderate, predominantly fixed perfusion defect in the inferior LV wall. There is a region of reversibility towards the inferoapical LV wall. Gated imaging demonstrates low-normal global LV systolic function. There is mild hypokinesis of the inferior LV wall. LVEF is calculated at 50%. Conclusion: Medium sized, moderate, predominantly fixed perfusion defect in the inferior LV wall. There is a region of reversibility towards the inferoapical LV wall. Findings are suggestive of reversible ischemia. Gated imaging demonstrates low-normal global LV systolic function. There is mild hypokinesis of the inferior LV wall. LVEF is calculated at 50%. Electronically signed by : Ronit Simms MD 03/08/2025 23:12:48
[2025-03-08] MEDS: SODIUM CHLORIDE 0.9% 10ML SYR (RAD ONLY) 10 ML IV ×2 (09:27)
[2025-03-08] MEDS: ISOTOPE MYOVIEW (PER STUDY) 1 DOSE IV (09:27)
--- NOTE | 2025-03-08 10:30 | MR_ITS ---
APPROVED REPORT Film Masker: CLINICAL INDICATION Aortic regurgitation TECHNIQUE Image Acquisition: Cardiac magnetic resonance (CMR) was performed on Siemens Espree MRI 1.5T scanner. Software platform sequences were performed using the Siemens Abcam MR B19 platform. A set of three-plane, low-resolution, large [id number] localizers were initially acquired. Then axial, coronal, sagittal TrueFISP, as well as axial HASTE images, were obtained. These were followed by gated TrueFISP breathold cinematic sequences obtained in the short axis with 8 mm slices and 2 mm gaps, 2-chamber (vertical long axis), 3-chamber, 4-chamber (horizontal long axis). A bolus of contrast was injected intravenously with first-pass sequences obtained in the short axis and four-chamber planes. After approximately 10 minutes, a TI mosaic tile maker sequence was performed to determine the optimal TI time. Using the optimized TI time, delayed contrast enhancement segmented inversion???recovery TurboFLASH sequences were obtained in the short axis, 2-chamber, 3-chamber, and 4-chamber projections. 2D-velocity phase mapping was performed. Functional parameters were calculated by offline analysis on an independent workstation ([employer], [employer]). Contrast: ProHance??? (Gadoteridol) FINDINGS MORPHOLOGY AND FUNCTION Left ventricle: The left ventricle is severely dilated. The indexed left ventricular end-diastolic volume (LVEDVi) is 133 ml/m2 (reference range 57-105 ml/m2 in males, 56-96 ml/m2 in females). Low normal left ventricular systolic function is present. There is normal left ventricular wall thickness. There are no regional wall motion abnormalities noted. LVEF is calculated at 52.6% (reference range 57-77%). Right ventricle: The right ventricle is normal in size. The indexed right ventricular end-diastolic volume (RVEDVi) is 87 ml/m2 (reference range 61-121 ml/m2 in males, 48-112 ml/m2 in females). Low normal right ventricular systolic function is present. RVEF is calculated at 51.2% (reference range 52-72% in males, 51-71% in females). Atria: The left atrium is severely dilated. The maximum indexed left atrial volume is 53 ml/m2 (reference range 26-34 ml/m2 in males, 27-34 ml/m2 in females). The right atrium is mildly dilated. The maximum indexed right atrial volume is 35 ml/m2 (reference range 18-34 ml/m2). Aorta: The diameter of the aortic annulus is normal, measuring 30 mm (coronal view reference range 21-30 mm in males, 19-27 mm in females). The diameter of the aortic sinus is normal, measuring 38 mm (coronal view reference range 25-42 mm in males, 24-36 mm in females). The diameter of the sinotubular junction is normal, measuring 35 mm (coronal view reference range 18-32 mm in males, 18-28 mm in females). The ascending thoracic aorta is mildly dilated, measuring 4.0 cm in diameter. The descending thoracic aorta is normal in size. Main pulmonary artery: The main pulmonary artery diameter is normal. Pericardium: The pericardial thickness is normal. The pericardial thickness measures 1.6 mm (normal < 4.0 mm). There is no pericardial effusion. VALVES The right coronary cusp of the aortic valve is restricted in motion, with presence of mild coaptation of the aortic valve leaflets. Severe aortic regurgitation is present. Regurgitant volume as 50 mL. Regurgitant fraction is 40%. Systolic anterior motion of the mitral valve is not visualized. Ratio of pulmonary to systemic flow, Qp:Qs ratio = 0.9 (normal < or = 1.2, hemodynamically significant shunt > 1.5), demonstrating no evidence of hemodynamically significant shunt. TISSUE CHARACTERIZATION Resting Perfusion: Normal myocardial blood flow at rest. No evidence of resting hypoperfusion. Myocardial Fibrosis and/or edema: Normal gadolinium kinetics are present. No evidence of late gadolinium enhancement is noted, consistent with absence of myocardial scarring, infarction, or necrosis. T2-weighted imaging demonstrates no evidence of myocardial edema or inflammation. OTHER No other significant findings are noted. However, this exam is focused on the cardiac structure and function. IMPRESSION Severe LV dilation with low normal LV systolic function. LVEDVi= 133 ml/m2 and LVEF= 52.6%. Normal RV size with low normal RV systolic function. RVEDVi= 87 ml/m2 and RVEF= 51.2%. Biatrial atrial enlargement. The right coronary cusp of the aortic valve is restricted in motion, with presence of mild coaptation of the aortic valve leaflets. Severe aortic regurgitation is present. Regurgitant volume as 50 mL. Regurgitant fraction is 40%. No CMR evidence of myocardial scarring, infarction, or necrosis. No evidence of myocardial edema or inflammation. Perfusion analysis demonstrates normal blood flow at rest with no evidence of resting hypoperfusion. Ratio of pulmonary to systemic flow, Qp:Qs ratio = 0.9 (normal < or = 1.2, hemodynamically significant shunt > 1.5), demonstrating no evidence of hemodynamically significant shunt. The ascending thoracic aorta is mildly dilated, measuring 4.0 cm in diameter. Overall, this CMR demonstrates presence of LV dilation with low-normal biventricular systolic function. In the setting of significant aortic regurgitation accompanied by severe LV dilation with low normal LV systolic function and mildly dilated ascending aorta, early referral for AV repair/replacement + ascending aorta grafting is suggested, if considered clinically indicated and feasible. COMPARISON None CRITICAL RESULT None COMMUNICATION As above The findings of this cardiac MR were reviewed, reported, and signed by Hussain Simms MD (Plane Tender). Conclusion Electronically signed by : Ronit Simms MD 03/15/2025 23:09:34
[2025-03-08] MEDS: GADOTERIDOL INJ 20ML SYRINGE 19 ML IV (11:39)
[2025-03-08] MEDS: 0.9 % SODIUM CHLORIDE 50 ML VIAL 20 ML IV (11:39)
== END 2025-03-08 23:59 | disposition home or self-care (01) ==
LOC: RAD 07:08
PROVIDERS: PCP Family Medicine; Visit Provider Nurse Practitioner
DX: I35.1 Nonrheumatic aortic (valve) insufficiency (principal); I35.8 Other nonrheumatic aortic valve disorders; I77.810 Thoracic aortic ectasia; I11.9 Hypertensive heart disease without heart failure; R94.39 Abnormal result of other cardiovascular function study; E78.00 Pure hypercholesterolemia, unspecified; R73.03 Prediabetes; R42 Dizziness and giddiness
CPT/HCPCS: 75561; 78452; 93016; 93017; 93018; A9502; A9576; J2785

== ENCOUNTER 2025-03-23 07:47 | Day surgery (SDC) | payer BC, MEDICARE, SELFPAY ==
[2025-03-23] VITALS (13 sets, daily range): BP systolic 127–153; BP diastolic 55–70; PULSE 53–66; RESP 16–20; O2SAT 95–99; BMI 30.4
--- NOTE | 2025-03-23 07:10 | IR_ITS ---
APPROVED REPORT Patient Location: Outpatient PROCEDURES Left heart catheterization Left ventriculogram Selective coronary angiogram Drug-eluting stent deployment to the proximal mid dominant right coronary Drug-eluting stent deployment to the posterior lateral ventricular branch INDICATION Coronary artery disease, Abnormal Myoview, Preoperative evaluation for aortic valve replacement Informed consent was obtained prior to the procedure. COMPLICATIONS NONE Estimated Blood Loss: LESS THAN 10 ML TECHNIQUE One percent lidocaine was used to anesthetize the right groin. The right femoral artery was accessed via the Seldinger technique. A 6-Arabic 25 cm sheath was placed in the right femoral artery. The JL-4 and JR-5 catheter was also used to perform left heart catheterization left ventriculogram and selective coronary angiogram. At the end the diagnostic angiogram I broke scrub and called CT surgeons at [facility] and spoke with Dr. Rhodes and asked if he would prefer the patient undergo drug-eluting stent deployment with single-vessel disease or undergo saphenous vein graft revascularization during surgical aortic valve replacement. Surgeon recommended drug-eluting stent deployment therefore a 6 Arabic JR4 guide catheter was used to intubate the right coronary artery. Therapeutic heparin giving a therapeutic ACT had already been achieved. Choice PT extra-support wire was placed into the posterior descending artery where a 2.25 x 22 mm [place] frontier stent was deployed at 16 sukh reducing the stenosis to 0%. ИРИНА-3 flow was present before and after the procedure. Following this a 4.5 x 30 mm Don frontier stent was deployed in the proximal to mid right coronary artery at 18 sukh reducing the stenosis to 0%. ИРИНА-3 flow was present before and after the procedure. 600 mcg of intracoronary nitroglycerin was administered at the end of procedure the apparatus was removed the groin is reprepped closure change sheath was removed and hemostasis was achieved using Perclose device patient was transferred to the postop holding her in stable condition ANGIOGRAPHIC RESULTS The left main artery Normal The left anterior descending artery Proximal 10% stenosis with mid vessel 30% eccentric stenoses. A large first diagonal artery is 10% luminal regularities The circumflex artery Nondominant 10% luminal irregularities The right coronary artery Large dominant with proximal 70% stenosis with 80% stenosis in a medium size posterior lateral branch. A large posterior descending artery is widely patent The VALENCIA ventriculogram reveals Dilated ventricle ejection fraction 45% The left ventricular end-diastolic pressure 20 mmHg IMPRESSION Coronary artery disease as described above Severe disease in the proximal dominant right coronary with successful stenting reducing lesion to 0% with 1 drug-eluting stent Severe disease in a medium sized posterolateral branch with successful stenting reducing lesion to 0% with 1 drug-eluting stent Reduced ejection fraction Elevated LVEDP PLAN 1. Plavix and aspirin 2. LDL less than 55 to be achieved with high intensity statin 3. Avoidance of tobacco products 4. Risk factor modification 5. Cardiac rehabilitation 6. Patient will be seen and further evaluated by CT surgery [facility] for timing of the surgical aortic valve replacement Electronically signed by : Jd Duvall MD 03/23/2025 13:03:21
[2025-03-23 08:26] LABS: Hematocrit 44.9 % (42.0-52.0); Hemoglobin 14.5 g/dL (14.1-18.0); Immature Granulocytes % 0.5 %; Mean Corpuscular HGB Conc 32.3 g/dL (31.8-35.4); Mean Corpuscular Hemoglobin 27.7 pg (27.0-31.2); Mean Corpuscular Volume 85.9 fl (80-94); Nucleated Red Blood Cells % 0 %; Platelet Count 186 K/mm3 (142-424); Red Blood Count 5.23 M/mm3 (4.60-6.20); Red Cell Distribution Width-SD 48.1 fL; White Blood Count 5.5 K/mm3 (4.8-10.8)
[2025-03-23 08:28] LABS: Anion Gap 9.2 mEq/L (5-15); Blood Urea Nitrogen 24 mg/dl (9-20); Calcium 9.2 mg/dl (8.4-10.2); Carbon Dioxide 27 mmol/L (22.0-30.0); Chloride 106 mmol/L (98-107); Creatinine Clearance Estimated 87 mL/min (50-200); Creatinine,Serum 1.00 mg/dl (0.66-1.25); Estimated Glomerular Filt Rate 74 ml/min (>60); GFR (African American) 90 ML/MIN (>60); Glucose 101 mg/dl (74-100); Potassium 4.2 mmoL/L (3.5-5.1); Sodium 138 mmol/L (136-145)
[2025-03-23] MEDS: HEPARIN 1,000 UNITS/500ML NS (CATH LAB) 3000 UNIT IV (09:53)
[2025-03-23] MEDS: LIDOCAINE 1% 10ML MDV 10 ML IJ (09:54)
[2025-03-23] MEDS: 0.9 % SODIUM CHLORIDE 500 ML 25 ML IV (09:54)
[2025-03-23] MEDS: MIDAZOLAM HCL 1MG/ML 5ML VIAL 1 MG IV (10:40)
[2025-03-23] MEDS: FENTANYL 100MCG/2ML VIAL 50 MCG IV (10:40)
[2025-03-23] MEDS: NITROGLYCERIN 800MCG/8ML SYR (CATH LAB) 800 MCG IA (10:52)
[2025-03-23] MEDS: ASPIRIN 325MG TABLET 325 MG PO (11:15)
[2025-03-23] MEDS: FAMOTIDINE 20MG/2ML VIAL 20 MG IV (11:24)
[2025-03-23] MEDS: METHYLPREDNISOLONE SOD SUCC 125MG VIAL 125 MG IV (11:24)
[2025-03-23] MEDS: IOPAMIDOL-370 (76%);100ML BOTTLE 150 ML IV (13:55)
== END 2025-03-23 14:31 | disposition home or self-care (01) ==
PROVIDERS: PCP Family Medicine; Visit Provider Internal Medicine
PROC: 4A023N7 Measurement of Cardiac Sampling and Pressure, Left Heart, Percutaneous Approach (ICD-10-PCS; CPT 93452; principal; 2025-03-23 08:30)
DX: I25.10 Atherosclerotic heart disease of native coronary artery without angina pectoris (principal); R94.39 Abnormal result of other cardiovascular function study; I71.21 Aneurysm of the ascending aorta, without rupture; I35.0 Nonrheumatic aortic (valve) stenosis; I35.1 Nonrheumatic aortic (valve) insufficiency; E11.9 Type 2 diabetes mellitus without complications; I10 Essential (primary) hypertension; E78.49 Other hyperlipidemia; Z95.5 Presence of coronary angioplasty implant and graft; Z79.82 Long term (current) use of aspirin; Z79.84 Long term (current) use of oral hypoglycemic drugs; Z79.02 Long term (current) use of antithrombotics/antiplatelets; Z79.899 Other long term (current) drug therapy; Z88.8 Allergy status to other drugs, medicaments and biological substances; Z82.49 Family history of ischemic heart disease and other diseases of the circulatory system
CPT/HCPCS: 80048; 85025; 92928; 92929; 93458; 99152; 99153; C1725; C1760; C1769; C1874; C9600; C9601; J1200; J1644; J2003; J2919; J3010; J7040; Q9967

== ENCOUNTER 2025-04-25 08:56 | Outpatient (CLI) | payer BC, MEDICARE, SELFPAY ==
--- OUTSIDE RECORDS SUMMARY | 2025-03-10 09:00 | XMS_ITS | Encounter Summary ---
Author Organization [facility] Address [address] [place] [address] Care Team Providers Care Hospitality Aide Name Role Phone Kamran Singh MD Primary Care Provider [phone] Reason for Referral * Imaging (Routine) - Closed Specialty Diagnoses / Procedures Referred By Nathalia garcia Referred To Contact Radiology Diagnoses Ascending aortic aneurysm, unspecified whether ruptured (CMS/HCC) Procedures CT Chest wo IV Contrast Phillip Clark MD [address] [place] [address] Phone: tel: fax: Referral ID Status Reason Start Date Expiration Date Visits Re quested Visits Authorized [id number] Closed 03/10/2025 09/09/2026 1 1 Reason for Visit * Consultation (Routine) - Closed Specialty Diagnoses / Procedures Referred By Nathalia garcia Referred To Contact Cardiothoracic Surgery Diagnoses Thoracic aortic ectasia (CMS/HCC) Kamran Singh MD [address] [place] [address] Phone: tel: fax: [facility] [address], [address] [place] [address] Phone: tel: fax: Referral ID Status Reason Start Date Expiration Date V isits Requested Visits Authorized [id number] Closed Specialty Services Required 02/07/2025 08/09/2026 1 1 Encounter Details Date Type Department Care Team ([facility] st Contact Info) Description 03/10/2025 9:00 AM EDT Consult [facility] Cardiothoracic [address], [address] [place] [address] Phillip Clark MD [address] [place] [address] Ascending aortic aneurysm, unspecified whether ruptured (CMS/HCC) (Primary Dx); Primary hypertension; Aortic valve insufficiency, etiology of cardiac valve disease unspecified Social History Tobacco Use Types Packs/Day Years Used Date Smoking Tobacco: Never Smokeless Tobacco: Never Tobacco Cessation:Counseling Given: Not Answered Alcohol Use Standard Drinks/Week Comments Never 0 (1 standard drink = 0.6 oz pur e alcohol) PHQ-2 Answer Date Recorded Patient Health Questionnaire-2 Score 0 03/10/2025 AUDIT-C Answer Date Recorded Q1: How often do you have a drink containing alcohol? Never 03/10/2025 Q2: How many drinks containi ng alcohol do you have on a typical day when you are drinking? Patient does not drink Q3: How often do you have si x or more drinks on one occasion? Never 03/10/2025 Sex and Gender Information Value Date Recorded Sex Assigned at Not on file Legal Sex Male 7:47 PM EDT Gender Identity Not on file Sexual Orientation Not on file documented as of this encounter Last Filed Vital Signs Vital Sign Reading Time Taken Comments Blood Pressure 170/64 03/10/2025 9:11 AM EDT Pulse 63 03/10/2025 9:00 AM EDT Temperature - - Respiratory Rate - - Oxygen Saturation 99% 03/10/2025 9:00 AM EDT Inhaled Oxygen Concentration - - Weight 87.4 kg (192 lb 9.2 oz) 03/10/2025 9:00 A M EDT Height 170.2 cm (5' 7 ) 03/10/2025 9:00 AM EDT Body Mass Index 30.16 03/10/2025 9:00 AM EDT documented in this encounter Functional Status * AUDIT-C Score Answer Date of Assessment Author 0 03/10/2025 9:10 AM EDT Marie Eid * Question Answer Date of Assessment Author Q1: How often do you have a drink containing alcohol? Never 03/10/2025 9:10 AM Marie Alvarado Q2: How many drinks containing alcohol do you have on a typical day when you are drinking? Patient does not drink 03/10/2025 9:10 AM Marie Alvarado Q3: How often do you have six or more drinks on one occasion? Never 03/10/2025 9:10 AM Marie Alvarado * Over the past 2 weeks, how often have you been bothered by any of the following problems? Question Answer Date of Assessment Author Little interest or pleasure in doing things Not at all 03/10/2025 9:10 AM Marie Alvarado Feeling down, depressed, or hopeless Not at all 03/10/2025 9:10 AM Marie Alvarado Patient Health Questionnaire -2 Score 0 03/10/2025 9:10 AM Marie Alvarado documented as of this encounter Miscellaneous Notes * Progress Notes - Lee Ivan PA - 03/10/2025 9:00 AM EDT Images from the original note were not included. Reason for visit / Chief Complaint: Ascending Aortic Aneurysm History of present illness: Bradley Forrest is a 69 y.o. male referred to us in consultation by Dr Singh in regards to an Ascending Aortic Aneurysm. Is a very pleasant 69-year-old gentleman who does not have any significant past medical history family history consistent with aneurysmal disease. His father did have history of coronary artery disease having undergone multiple percutaneous interventions. He reports seeing his family physician who found a murmur on auscultation which prompted further investigation with both echocardiography and CT imaging. His echo was mostly unremarkable with the exception of a mild degree of aortic valve insufficiency. CT imaging of the chest demonstrated a 4.1 cm ascending aortic aneurysm. He has not had any palpitations or angina nor has he describe any exertional dyspnea or exertional fatigue. These findings were incidental in nature. His chronic comorbid conditions that impact our treatment planning include: None NYHA Classification: Class I: No symptoms with ordinary activity. Smoking Cessation: non smoker Active Problems: There are no active problems to display for this patient. Medical History: Past Medical History Pertinent Negatives[1] Surgical History: Surgical History[2] Social History: Tobacco: Tobacco Use: Low Risk (03/09/2025) Patient History Smoking Tobacco Use: Never Smokeless Tobacco Use: Never Passive Exposure: Not on file Alcohol: Alcohol Use: Not on file Illicit drug use: Social History Substance and Sexual Activity Drug Use Never Family History: family history includes Breast cancer in his sister; Coronary artery disease in his father; Diabetes type I in his mother; Hypertension in his father and another family member; Skin cancer in his maternal grandmother. Allergies: Allergies[3] Medications: Prior to Admission medications Medication Sig Start Date End Date Taking? Authorizing Provider acetaminophen (Tylenol) 325 MG tablet Take 2 tablets by mouth every morning. Under [place] law, monthly prescriptions (30 days) can be refilled at 25 days and three-month prescriptions (90 days) at 80 days. Please contact the insurance company with questions if refills are denied. Yes Levi Tinajero MD atenolol (Tenormin) 25 MG tablet Take 1 tablet by mouth daily. Patient taking differently: Take 1 tablet by mouth 2 times a day. Yes Levi Tinajero MD ezetimibe (Zetia) 10 MG tablet Take 1 tablet by mouth daily. Yes Levi Tinajero MD losartan (Cozaar) 50 MG tablet Take 1 tablet by mouth daily. Yes Levi Tinajero MD Repatha SureClick 140 MG/ML solution auto-injector autoinjector Inject 1 mL under the skin every 14days. 02/26/25 Yes Levi Tinajero MD rosuvastatin (Crestor) 40 MG tablet Take 1 tablet by mouth daily. Yes Levi Tinajero MD lisinopril 40 MG tablet Take 1 tablet by mouth daily. Patient not taking: Reported on 03/10/2025 Levi Tinajero MD Physical exam: Visit Vitals BP (!) 167/71 Pulse 63 SpO2 99% Physical Exam Constitutional: Appearance: Normal appearance. HENT: Head: Normocephalic and atraumatic. Nose: Nose normal. Mouth/Throat: Mouth: Mucous membranes are moist. Eyes: Extraocular Movements: Extraocular movements intact. Pupils: Pupils are equal, round, and reactive to light. Cardiovascular: Rate and Rhythm: Normal rate and regular rhythm. Heart sounds: Murmur heard. Pulmonary: Effort: Pulmonary effort is normal. Breath sounds: Normal breath sounds. Abdominal: General: Abdomen is flat. Musculoskeletal: General: Normal range of motion. Cervical back: Normal range of motion and neck supple. Skin: General: Skin is warm and dry. Capillary Refill: Capillary refill takes less than 2 seconds. Neurological: Mental Status: He is alert and oriented to person, place, and time. Psychiatric: Behavior: Behavior normal. Imaging: Echocardiogram performed at [facility] dated January 04, 2025 CT Chest dated december 2024 Cardiac Cath Results: None Impression: 1. Stable ascending aortic aneurysm with an associated 3. aortic valve insufficiency 2.Hypertension Plan: At this interval we will continue surveillance with CT imaging of the chest in 6 months to see if there has been any change in the size of his 4.1 cm ascending aortic aneurysm. He is currently asymptomatic relative to his aortic valve insufficiency and will defer further echocardiography at least for this next surveillance. . We have described to him the cornerstone of treatment at this interval is antihypertensive control. He is currently on the following medications and have an effect on his blood pressure losartan 50 mg tablet daily and atenolol 25 mg tablet daily. He was previously taking lisinopril and was discontinued secondary to a cough. We have asked him to keep a blood pressure log daily prior to his next primary care appointment so they may be more informed about his blood pressure trends and adjust dosage accordingly. The patient was seen and examined with physician dental chairside assistant. His imaging which I have reviewed showsmild aortic regurgitation and a moderate sized aneurysm of the. I have discussed this with Mr. Forrest and his . They are somewhat relieved and understand that we will follow this with imaging timepasses. Currently there is no indication that surgical intervention is needed. [1] Past Medical History: Diagnosis Date Cardiac murmur Hyperlipidemia Hypertension [2] Past Surgical History: Procedure Laterality Date COLONOSCOPY KNEE SURGERY Right OTHER SURGICAL HISTORY N/A Knee arthroscopy from [facility] SHOULDER SURGERY Right [3] Allergies Allergen Reactions Seafood Hives Cosigned by Phillip Clark MD at 03/11/2025 1:49 PM EDT Associated attestation - Phillip Clark MD - 03/11/2025 1:49 PM EDT The patient was seen by Advanced Practice Provider ([facility]) and myself--- care was reviewed with me. documented in this encounter Plan of Treatment Not on file documented as of this encounter Results * CT Chest wo IV Contrast (04/14/2025 7:46 AM EDT) Anatomical Region Laterality Modality Chest Computed Tomogra phy Impressions 04/14/2025 8:13 AM EDT Stable ectasia of the thoracic ascending aorta. No acute pulmonary process. CRITICAL RESULT: No. COMMUNICATION: Per this written report. Drafted by Aj Gordon MD on 04/14/2025 8:11 AM Final report signed by Aj Gordon MD on 04/14/2025 8:13 AM Narrative 04/14/2025 8:13 AM EDT CLINICAL INDICATION: Aortic aneurysm suspected TECHNIQUE: Imaging of the chest was performed from thoracic inlet through upper abdomen, using spiral technique, without administration of IV contrast. Reformatted images in the coronal and sagittal planes were generated from the axial data set to facilitate diagnostic accuracy. Total DLP (Dose-Length Product): 1988.71 mGy.cm. Please note: The reported value represents the total of one or more individual components during the CT acquisition on this date and at this time, and as such, the same value may appear in more than one CT report depending on the interpreting/reporting physicians. COMPARISON: Outside CT from 01/28/2025 FINDINGS: Chest: Lack of IV contrast limits evaluation of thoracic organs and vessels. Aorta/Vessels: Ectasia of the thoracic ascending aorta measuring 4.3 cm at the level of main pulmonary artery is stable. Mild atherosclerosis of the coronary arteries. Pleural/Pericardial Space: No pneumothorax. No pleural effusions. No pericardial effusion. Lymph Nodes: No lymphadenopathy within the chest. Lungs: Motion artifact somewhat degrades the accurate evaluation of the lung apices. Accounting for this limitation, No focal consolidation or new suspicious nodules. Mediastinum: Otherwise unremarkable. Bones: No acute fracture within the chest. Upper Abdomen: Hypodensities in the left hepatic lobe are stable and probably cysts. Procedure Note Aj Gordon MD - 04/14/2025 CLINICAL INDICATION: Aortic aneurysm suspected TECHNIQUE: Imaging of the chest was performed from thoracic inlet through upperabdomen, using spiral technique, without administration of IV contrast.Reformatted images in the coronal and sagittal planes were generated fromthe axial data set to facilitate diagnostic accuracy. Total DLP (Dose-Length Product): 1988.71 mGy.cm. Please note: The reportedvalue represents the total of one or more individual components during theCT acquisition on this date and at this time, and as such, the same valuemay appear in more than one CT report depending on theinterpreting/reporting physicians. COMPARISON: Outside CT from 01/28/2025 FINDINGS: Chest: Lack of IV contrast limits evaluation of thoracic organs and vessels. Aorta/Vessels: Ectasia of the thoracic ascending aorta measuring 4.3 cm atthe level of main pulmonary artery is stable. Mild atherosclerosis of thecoronary arteries. Pleural/Pericardial Space: No pneumothorax. No pleural effusions. Nopericardial effusion. Lymph Nodes: No lymphadenopathy within the chest. Lungs: Motion artifact somewhat degrades the accurate evaluation of thelung apices. Accounting for this limitation, No focal consolidation or newsuspicious nodules. Mediastinum: Otherwise unremarkable. Bones: No acute fracture within the chest. Upper Abdomen: Hypodensities in the left hepatic lobe are stable andprobably cysts. IMPRESSION: Stable ectasia of the thoracic ascending aorta. No acute pulmonary process. CRITICAL RESULT: No. COMMUNICATION: Per this written report. Drafted by Aj Gordon MD on 04/14/2025 8:11 AM Final report signed by Aj Gordon MD on 04/14/2025 8:13 AM us Phillip Clark MD IMG CT PROCEDURES Final Resu lt documented in this encounter Visit Diagnoses Diagnosis Ascending aortic aneurysm, unspecified whether ruptured (CMS/HCC)- Primary Primary hypertension Unspecified essential hypertension Aortic valve insufficiency, etiology of cardiac valve disease unspecified Ascending aortic aneurysm, unspecified whether ruptured (CMS/HCC) documented in this encounter Additional Health Concerns Assessment Noted Time A fall risk assessment has been complete d for the patient 03/10/2025 9:10 AM EDT A Body Mass Index follow-up plan has been documented for the patient 03/10/2025 10:33 AM EDT documented as of this encounter Care Teams Hospitality Aide Relationship Specialty Start Date End Date Kamran Singh MD [address] [place] [address] PCP - General 02/28/25 documented as of this encounter
--- OUTSIDE RECORDS SUMMARY | 2025-04-14 07:13 | XMS_ITS | Encounter Summary ---
Author Organization [facility] Address [address] [place] [address] Care Team Providers Care Hospital Admissions Officer Name Role Phone Kamran Singh MD Primary Care Provider +1- [phone] Reason for Referral * Imaging (Routine) - Closed Specialty Diagnoses / Procedures Referred By Nathalia garcia Referred To Contact Radiology Diagnoses Ascending aortic aneurysm, unspecified whether ruptured (CMS/HCC) Procedures CT Chest wo IV Contrast Phillip Clark MD [address] [address] Phone: tel: fax: Referral ID Status Reason Start Date Expiration Date Visits Re quested Visits Authorized [id number] Closed 03/10/2025 09/09/2026 1 1 Reason for Visit * Imaging (Routine) - Closed Specialty Diagnoses / Procedures Referred By Nathalia garcia Referred To Contact Radiology Diagnoses Ascending aortic aneurysm, unspecified whether ruptured (CMS/HCC) Procedures CT Chest wo IV Contrast Phillip Clark MD [address] [address] Phone: tel: fax: Referral ID Status Reason Start Date Expiration Date Visits Re quested Visits Authorized [id number] Closed 03/10/2025 09/09/2026 1 1 Encounter Details Date Type Department Care Team (Latest Contact Info) Description 04/14/2025 7:13 AM EDT - 04/14/2025 11:59 PM EDT Hospital Encounter PAV G Radiology [address] [place] [address] Ascending aortic aneurysm, unspecified whether ruptured ([facility]) Discharge Disposition: Home or Self Care Social History Tobacco Use Types Packs/Day Years Used Date Smoking Tobacco: Never Smokeless Tobacco: Never Alcohol Use Standard Drinks/Week Comments Never 0 [...] on file documented as of this encounter Medications at Time of Discharge acetaminophen (Tylenol) 325 MG tablet Take 2 tablets by mouth every morning. Under [place] law, monthly prescriptions (30 days) can be refilled at 25 days and three-month prescriptions (90 days) at 80 days. Please contact the insurance company with questions if refills are denied. ASPIRIN 81 MG chewable tablet Chew 1 tablet daily. atenolol (Tenormin) 25 MG tablet Take 1 tablet by mouth daily. clopidogrel (Plavix) 75 MG tablet Take 1 tablet by mouth daily. 03/23/2025 empagliflozin (Jardiance) 10 MG Take 1 tablet by mouth daily. ezetimibe (Zetia) 10 MG tablet Take 1 tablet by mouth daily. ibuprofen 200 MG tablet Take 1 tablet by mouth daily. losartan (Cozaar) 50 MG tablet Take 1 tablet by mouth daily. Repatha SureClick 140 MG/ML solution auto-injector autoinjector Inject 1 mL under the skin every 14 days. 02/26/2025 rosuvastatin (Crestor) 40 MG tablet Take 1 tablet by mouth daily. spironolactone (Aldactone) 25 MG tablet Take 1 tablet by mouth daily. documented as of this encounter Plan of Treatment Not on file documented as of this encounter Procedures Procedure Name Priority Date/Time Associated Diagnosis Comments CT CHEST WO IV CONTRAST Routine 04/14/2025 7:46 AM EDT Ascending aortic aneurysm, unspecified whether ruptured (CMS/HCC) documented in this encounter Results * CT Chest wo [...] Aj Gordon MD on 04/14/2025 8:13 AM Phillip Clark MD IMG CT PROCEDURES Final Resu lt documented in this encounter Visit Diagnoses Diagnosis Ascending aortic aneurysm, unspecified whether ruptured (CMS/HCC) documented in this encounter Additional Health Concerns Assessment Noted Time A fall risk assessment has been complete d for the patient 04/14/2025 12:34 PM EDT A Body Mass Index follow-up plan has been documented for the patient 04/14/2025 2:26 PM EDT documented as of this encounter Care Teams Hospital Admissions Officer Relationship Specialty Start Date End Date Kamran Singh MD [address] [place] [address] PCP - General 02/28/25 documented as of this encounter
--- OUTSIDE RECORDS SUMMARY | 2025-04-14 13:00 | XMS_ITS | Encounter Summary ---
Author Organization [facility] Address [address] [place] [id number] Care Team Providers Care Carpet Renovator Name Role Phone Kamran Singh MD Primary Care Provider +1- [phone] Reason for Referral * Imaging (Routine) - Authorized Specialty Diagnoses / Procedures Referred By Nathalia garcia Referred To Contact Cardiology Diagnoses Ascending aortic aneurysm, unspecified whether ruptured (CMS/HCC) Procedures Echo, Adult Transthoracic Complete Phillip Clark MD [address] [address] Phone: tel: fax: Referral ID Status Reason Start Date Expiration Date Visits Requested Visits Authorized [id number] Authorized Perform Procedure 04/14/2025 10/14/2026 1 2 Encounter Details Date Type Department Care Team (Late st Contact Info) Description 04/14/2025 1:00 PM EDT Office Visit [place] [facility] [address], [address] [address] Phillip Clark MD [address] [address] Ascending aortic aneurysm, unspecified whether [...] Notes * Progress Notes - Lorelei Dominique, BOAT ENGINES INSTALLER - 04/14/2025 1:00 PM EDT Images from the original note were not included. Reason for visit / Chief Complaint: Follow up evaluation for ascending aortic ectasia, worsening aortic valve regurgitation History of present illness: Bradley Forrest is a 69 y.o. male with history of recent stent placement referred to us in consultationby Dr. Duvall at [facility]. Mr. Forrest is a patient who [...] 2 tablets by mouth every morning. Under [place] law, monthly prescriptions (30 days) can be [...] Take 1 tablet by mouth daily. Yes eLvi Tinajero MD spironolactone (Aldactone) 25 MG tablet [...] us in consultation by Dr. Duvall at [facility]. Mr. Forrest is a patient who [...] (will try to get it done in [place], closer to patient's home) - Return to [...] documented in this encounter Plan of Treatment Scheduled Orders Name Type Priority Associated Diagnoses [...] documented as of this encounter Care Teams Carpet Renovator Relationship Specialty Start Date End Date Kamran Singh MD [address] [place] [address] PCP - General 02/28/25 documented as of this encounter
--- NOTE | 2025-04-25 09:06 | CA_ITS ---
APPROVED REPORT EXAM: Comprehensive 2D, Doppler, and color-flow Echocardiogram Flavor Maker: Lupe Haynes RDCS Ht: 5 ft 7 in Wt: 190lbs BSA: 1.98 BP: 163/57 mmHg Indications: AI,HFREF 2D Dimensions Left Atrium 3.74 cm M: 3.0 - 4.0 LA Volume 80.10 mL LVOT 2.03 cm (M/F) 1.5-2.5 LA Volume Index 40.45 mL/m2 (M/F) 16-34 EF AP4 55.80 % GL Strain -17.0 % M-Mode Dimensions RVDd 1.10 cm (0.9-2.6) LVDd 7.07 cm (3.5-5.7) Ao Diam 3.66 cm (2.0-3.7) LVDs 5.03 cm (3.5-5.7) IVSd 0.57 cm (0.6-1.1) PWd 0.95 cm (0.6-1.1) EF (Teich) 54.10% FS 28.90% EDV (Teich) 261.20 mL ESV (Teich) 119.90 mL LV Diastology E Decel Time 192 (160-240 msec) E/A Ratio 2.0 MED E' 5.2 (>= 7 cm/sec) E'/MED E' Ratio 19.92 (<= 14) LAT E' 8.4 (>= 10 cm/sec) E/LAT E' Ratio 12.33 (<= 14) Aortic Valve AI PHT 288.00 ms Mitral Valve MV E Max Edgardo. 104.0 (40-130 cm/s) MV A Velocity 52.0 (40-130 cm/s) E/A Ratio 1.98 MV Decel. Time 192 (160-240 ms) Left Ventricle The left ventricle is severely dilated (LVEDVi 110 ml/m2). LVEDD 6.6 cm. LVESD 4.6 cm. Left ventricular systolic function is normal. There is normal left ventricular wall thickness. There is normal LV segmental wall motion. The left ventricular diastolic function is indeterminate. LVEF is 50-55% Right Ventricle The right ventricle is normal size. The right ventricular systolic function is normal. Atria The left atrium is mildly dilated. The right atrium size is normal. There is no color Doppler evidence of interatrial shunt. Aortic Valve The aortic valve is morphologically abnormal, cannot entirely rule out bicuspid aortic valve. There is no hemodynamically significant aortic valvular stenosis. Moderate to severe aortic regurgitation is present. The AI jet is eccentric and directed towards the anterior mitral valve leaflet. Mitral Valve The mitral valve is normal in structure. No evidence of mitral valve stenosis. Mild mitral regurgitation is present. Tricuspid Valve The tricuspid valve leaflets are thin and pliable. Trace tricuspid regurgitation. There is insufficient TR jet to estimate RVSP. Pulmonic Valve The pulmonary valve is grossly normal in structure. Trace pulmonic valve regurgitation is present. Great Vessels The aortic root is normal in size. IVC is normal in size and collapses >50% with inspiration. Pericardium There is no pericardial effusion. Conclusion Severe LV dilation with low-normal LV systolic function (LVEF 50-55%). (LVEDVi 110 ml/m2). LVEDD 6.6 cm. LVESD 4.6 cm. Mild LA dilation. Morphologically abnormal aortic valve (cannot rule out bicuspid aortic valve ). Moderate to severe AI. The AI jet is eccentric and directed towards the anterior mitral valve leaflet. Mild MR. Electronically signed by : Ronit Simms MD 04/25/2025 12:43:34
--- OUTSIDE RECORDS SUMMARY | 2025-04-25 09:26 | XMS_ITS | Encounter Summary ---
Author Organization [facility] Address [address] [place] [address] Care Team Providers Care Administrative Support Manager Name Role Phone Kamran Singh MD Primary Care Provider +1- [phone] Encounter Details Date Type Department Care Team (Late st Contact Info) Description 01/04/2025 Orders Only External Location [address] [place] [address] Provider, External Social History Tobacco Use Types [...] on filedocumented in this encounter Care Teams Administrative Support Manager Relationship Specialty Start Date End Date Kamran Singh MD [address] [place] [address] PCP - General 02/28/25 documented as of this encounter
--- OUTSIDE RECORDS SUMMARY | 2025-04-25 09:26 | XMS_ITS | Encounter Summary ---
Author Organization [facility] Address [address] [place] [address] Care Team Providers Care Paratransit Operator Name Role Phone Kamran Singh MD Primary Care Provider +1- [phone] Encounter Details Date Type Department Care Team (Late st Contact Info) Description 01/28/2025 Orders Only External Location [address] [place] [address] Provider, External Social History Tobacco Use Types [...] on filedocumented in this encounter Care Teams Paratransit Operator Relationship Specialty Start Date End Date Kamran Singh MD [address] [place] [address] PCP - General 02/28/25 documented as of this encounter
--- OUTSIDE RECORDS SUMMARY | 2025-04-25 09:26 | XMS_ITS | Encounter Summary ---
Author Organization [facility] Address [address] [place] [address] Care Team Providers Care Clinical Associate Name Role Phone Kamran Singh MD Primary Care Provider +1- [phone] Encounter Details Date Type Department Care Team (Late st Contact Info) Description 03/08/2025 Orders Only External Location [address] [place] [address] Jolynn Raya, THEATRICAL TROUPER [address] [facility] [address] [place] [id number] Social History Tobacco Use Types Packs/Day Years Used Date Smoking Tobacco: Never PHQ-2 Answer Date Recorded Patient Health Questionnaire-2 [...] on file documented as of this encounter Functional Status * AUDIT-C Score Answer Date of Assessment Author 0 03/10/2025 9:10 AM Marie Alvarado * Question Answer Date of Assessment Author Q1: How often do you have a drink containing alcohol? Never 03/10/2025 9:10 AM Marie Alvarado Q2: How many drinks containing alcohol do you have on a typical day when you are drinking? Patient does not drink 03/10/2025 9:10 AM EDT Marie Eid Q3: How often do you have six or more drinks on one occasion? Never 03/10/2025 9:10 AM EDT Marie Eid * Over the past 2 weeks, how often have you been bothered by any of the following problems? Question Answer Date of Assessment Author Little interest or pleasure in doing things Not at all 03/10/2025 9:10 AM EDT Marie Eid Feeling down, depressed, or hopeless Not at all 03/10/2025 9:10 AM EDT Marie Eid Patient Health Questionnaire -2 Score 0 03/10/2025 9:10 AM EDT Marie Eid documented as of this encounter Plan of Treatment Not on file documented as of this encounter Procedures Procedure Name Priority Date/Time Associated Diagnosis Comments MR OUTSIDE IMAGES 03/08/2025 10:48 AM EDT documented in this encounter Results * MR transfer of outside films (03/08/2025 10:48 AM EDT) Anatomical Region Laterality Modality Magnetic Resonan ce 03/08/2025 10:4 8 AM EDT Jolynn Raya THEATRICAL TROUPER IMG MRI PROCEDURES Fin al Result documented in this encounter Visit Diagnoses Not on filedocumented in this encounter Care Teams Clinical Associate Relationship Specialty Start Date End Date Kamran Singh MD [address] [place] [address] PCP - General 02/28/25 documented as of this encounter
--- OUTSIDE RECORDS SUMMARY | 2025-04-25 09:26 | XMS_ITS | Encounter Summary ---
Author Organization [facility] Address [address] [place] [place] [id number] Care Team Providers Care Corporate Learning Consultant Name Role Phone Kamran Singh MD Primary Care Provider +1- [phone] Encounter Details Date Type Department Care Team (Late st Contact Info) Description 03/17/2025 Telephone [facility] [address], [address] [place] [address] Phillip Clark MD [address] [facility] [address] [place] [address] Social History Tobacco Use Types Packs/Day Years [...] on file documented as of this encounter Miscellaneous Notes * Telephone Encounter - Deuce Mary - 03/17/2025 9:58 AM EDT Relayed request for cath per Dr. Sekela. Provider acknowledged and will order cath. CT Surg to schedule follow up once cath is done. documented in this encounter Plan of Treatment Not on file documented as of this encounter Visit Diagnoses Not on filedocumented in this encounter Additional Health Concerns Assessment Noted Time A fall risk assessment has been complete d for the patient 03/10/2025 9:10 AM EDT A Body Mass Index follow-up plan has been documented for the patient 03/10/2025 10:33 AM EDT documented as of this encounter Care Teams Corporate Learning Consultant Relationship Specialty Start Date End Date Kamran Singh MD [address] [place] [address] PCP - General 02/28/25 documented as of this encounter
--- OUTSIDE RECORDS SUMMARY | 2025-04-25 09:28 | XMS_ITS | Encounter Summary ---
Author Organization [facility] Address [address] [place] [id number] Care Team Providers Care Rivet Bucker Name Role Phone Kamran Singh MD Primary Care Provider +1- [phone] Encounter Details Date Type Department Care Team (Latest Contact Info) Description 04/14/2025 Travel Social History Tobacco Use Types Packs/Day Years [...] documented as of this encounter Care Teams Rivet Bucker Relationship Specialty Start Date End Date Kamran Singh MD [address] [place] [address] PCP - General 02/28/25 documented as of this encounter
--- OUTSIDE RECORDS SUMMARY | 2025-04-25 09:28 | XMS_ITS | Clinical Summary ---
Author Organization [facility] Address [address] [place] [id number] Care Team Providers Care Multineedle Shirrer Name Role Phone Kamran Singh MD Primary Care Provider +1- [phone] Allergies Active Allergy Reactions Criticality Noted Date Comments Seafood Hives Medium 03/10/2025 Medications atenolol (Tenormin) 25 MG tablet Take 1 tablet by mouth daily. Active ezetimibe (Zetia) 10 MG tablet Take 1 tablet by mouth daily. Active rosuvastatin (Crestor) 40 MG tablet Take 1 tablet by mouth daily. Active Repatha SureClick 140 MG/ML solution auto-injector autoinjector Inject 1 mL under the skin every 14 days. 025 Active losartan (Cozaar) 50 MG tablet Take 1 tablet by mouth daily. Active acetaminophen (Tylenol) 325 MG tablet Take 2 tablets by mouth every morning. Under [place] law, monthly prescriptions (30 days) can be refilled at 25 days and three-month prescriptions (90 days) at 80 days. Please contact the insurance company with questions if refills are denied. Active ibuprofen 200 MG tablet Take 1 tablet by mouth daily. Active empagliflozin (Jardiance) 10 MG Take 1 tablet by mouth daily. Active spironolactone (Aldactone) 25 MG tablet Take 1 tablet by mouth daily. Active clopidogrel (Plavix) 75 MG tablet Take 1 tablet by mouth daily. 025 Active ASPIRIN 81 MG chewable tablet Chew 1 tablet daily. Active lisinopril 40 MG tablet Take 1 tablet by mouth daily. 2024 Discontinued Active Problems Problem Noted Date Diagnosed Date CAD (coronary artery disease) 04/14/2025 History of coronary angioplasty with insertion o f stent 04/14/2025 Ascending aortic aneurysm 04/14/2025 Aortic valve regurgitation 04/14/2025 BMI 30.0-30.9,adult 03/10/2025 High cholesterol 12/23/2019 Hypertension 12/23/2019 Encounters Date Type Department Care Team Description 04/14/2025 1:00 PM EDT Office Visit [facility] Cardiothoracic [address], [address] [place] [address] Phillip Clark MD Ascending aortic aneurysm, unspecified whether ruptured (CMS/HCC) (Primary Dx); Aortic valve insufficiency, etiology of cardiac valve disease unspecified 04/14/2025 7:13 AM EDT - 04/14/2025 11:59 PM EDT Hospital Encounter [facility] [address] [place] [address] Ascending aortic aneurysm, unspecified whether ruptured (CMS/HCC) Discharge Disposition: Home or Self Care 04/14/2025 Travel 04/08/2025 Travel 03/17/2025 Telephone [facility] Cardiothoracic [address] [facility] [address], [address] [place] [address] Phillip Clakr MD 03/10/2025 9:00 AM EDT Consult [facility] Cardioth[facility]acic [address] [facility] [address], [address] [place] [address] Phillip Clark MD Ascending aortic aneurysm, unspecified whether ruptured (CMS/HCC) (Primary Dx); Primary hypertension; Aortic valve insufficiency, etiology of cardiac valve disease unspecified 03/10/2025 Travel 03/08/2025 Orders Only External Location [address] [place] [address] Jolynn Raya APRN 01/28/2025 Orders Only External Location [address] [place] [address] Provider, External from Last 3 Months Family History Medical History Relation Name Comments Coronary artery disease Father Hypertension Father Skin cancer Maternal Grandmother Diabetes type I Mother Hypertension Other Breast cancer Sister Relation Name Status Comments Father Maternal Grandmother Mother Other Sister Social History Tobacco Use Types Packs/Day Years [...] on file Sexual Orientation Not on file Last Filed Vital Signs Vital Sign Reading [...] Mass Index 30.01 04/14/2025 12:32 PM EDT Plan of Treatment Health Maintenance Due Date Last Done Comments [facility]-Hepatitis C Screening 1955 [facility]-Medicare Annual Wellness (AWV) 1955 [facility]-/Child/Adol SDOH Screenings 1955 [facility]- SDOH Screenings 1973 [facility]-Adult SDOH Screenings 1973 [facility]-DTaP,Tdap,and Td Vaccines (1 - Tdap) 1974 CT Colonography 2000 Colonoscopy 2000 FIT-DNA 2000 FIT 2000 FOBT 2000 Sigmoidoscopy 2000 [facility]-Colorectal Cancer Screening 2000 [facility]-Pneumococcal Vaccine: 50+ Years (1 of 1 - PCV) 2005 [facility]-Zoster Vaccines (1 of 2) 2005 [id number] Vaccine ( season) 2024 06/22/2022, 01/19/2022, 07/12/2021, Additional history exists [facility]-Influenza Vaccine (#1) 2025 [facility]-Depression Screening 03/10/2026 03/10/2025 [facility]Y-RSV Vaccine: 60+ Years or (1 - 1-dose 75+ series) 2030 [facility]-Obesity Intervention Completed 04/14/2025, 03/01 HPV Vaccines Aged Out No longer eligi [...] Ascending aortic aneurysm, unspecified whether ruptured (CMS/HCC) MR OUTSIDE IMAGES 03/08/2025 10: [address] OUTSIDE IMAGES 01/28/2025 8:0 6 AM EDT from Last 3 Months Results * CT Chest wo IV Contrast [...] facilitate diagnostic accuracy. Total DLP (Dose-Length Product): 1987.71 mGy.cm. Please note: The reported value represents [...] facilitate diagnostic accuracy. Total DLP (Dose-Length Product): 1987.71 mGy.cm. Please note: The reportedvalue represents the [...] MD IMG CT PROCEDURES Final Resu lt * MR transfer of outside films (03/08/2025 10:48 AM EDT) Anatomical Region Laterality Modality Magnetic Resonan ce 03/08/2025 10:4 8 AM EDT Jolynn Raya APRN IMG MRI PROCEDURES Fin al Result * CT OUTSIDE IMAGES (01/28/2025 8:06 AM EDT) Anatomical Region Laterality Modality Computed Tomogra phy 01/28/2025 8:06 AM EDT External Provider IMG CT PROCEDURES Final Result from Last 3 Months Insurance [facility] [place] [address] Care Teams Multineedle Shirrer Relationship Specialty Start Date End Date Kamran Singh MD [address] [place] [address] PCP - General 02/28/25
--- OUTSIDE RECORDS SUMMARY | 2025-04-25 09:28 | XMS_ITS | Encounter Summary ---
Author Organization [facility] Address [address] [place] [id number] Care Team Providers Care Pole Peeling Machine Operator Helper Name Role Phone Kamarn Singh MD Primary Care Provider +1- [phone] Encounter Details Date Type Department Care Team (Latest Contact Info) Description 03/10/2025 Travel Social History Tobacco Use Types Packs/Day [...] documented as of this encounter Care Teams Pole Peeling Machine Operator Helper Relationship Specialty Start Date End Date Kamran Snigh MD [address] [place] [address] PCP - General 02/28/25 documented as of this encounter
--- OUTSIDE RECORDS SUMMARY | 2025-04-25 09:28 | XMS_ITS | Encounter Summary ---
Author Organization [facility] Address [address] [place] [id number] Care Team Providers Care Tinsmith Apprentice Name Role Phone Kamran Singh MD Primary Care Provider +1- [phone] Encounter Details Date Type Department Care Team (Latest Contact Info) Description 04/08/2025 Travel Social History Tobacco Use Types Packs/Day [...] documented as of this encounter Care Teams Tinsmith Apprentice Relationship Specialty Start Date End Date Kamran Singh MD [address] [place] [address] PCP - General 02/28/25 documented as of this encounter
== END 2025-04-25 23:59 | disposition home or self-care (01) ==
LOC: RT 08:58
PROVIDERS: PCP Family Medicine; Visit Provider Thoracic Surgery (Cardiothoracic Vascular Surgery)
DX: I08.0 Rheumatic disorders of both mitral and aortic valves (principal); I71.21 Aneurysm of the ascending aorta, without rupture; I50.20 Unspecified systolic (congestive) heart failure; R93.1 Abnormal findings on diagnostic imaging of heart and coronary circulation
CPT/HCPCS: 93306

== ENCOUNTER 2025-05-03 08:54 | Outpatient (CLI) | payer BC, MEDICARE, SELFPAY ==
--- OUTSIDE RECORDS SUMMARY | 2025-03-10 09:00 | XMS_ITS | Encounter Summary ---
Author Organization [facility] Address [address] [place] [address] Care Team Providers Care Carbon Setter Name Role Phone Kamran Singh MD Primary Care Provider [phone]- [phone] Reason for Referral * Imaging (Routine) - Closed Specialty Diagnoses / Procedures Referred By Nathalia garcia Referred To Contact Radiology Diagnoses Ascending aortic aneurysm, unspecified whether ruptured (CMS/HCC) Procedures CT Chest wo IV Contrast Phillip Clark MD [address] [place] [address] Phone: tel: fax: Referral ID Status Reason Start Date Expiration Date Visits Re quested Visits Authorized [id number] Closed 03/10/2025 09/09/2026 1 1 Reason for Visit * Consultation (Routine) - Closed Specialty Diagnoses / Procedures Referred By Nathalia garcia Referred To Contact Cardiothoracic Surgery Diagnoses Thoracic aortic ectasia (CMS/HCC) Kamran Singh MD [address] [place] [address] Phone: tel: fax: [facility] [address], [address] [place] [address] Phone: tel: fax: Referral ID Status Reason Start Date Expiration Date V isits Requested Visits Authorized [id number] Closed Specialty Services Required 02/07/2025 08/09/2026 1 1 Encounter Details Date Type Department Care Team ([facility] st Contact Info) Description 03/10/2025 9:00 AM EDT Consult [facility] Cardiothoracic [address], [address] [place] [address] Phillip Clark MD [address] [place] [address] Ascending aortic aneurysm, unspecified whether [...] 2 tablets by mouth every morning. Under [place] law, monthly prescriptions (30 days) can be [...] Behavior: Behavior normal. Imaging: Echocardiogram performed at [facility] dated January 04, 2025 CT Chest [...] patient was seen and examined with physician library assistant. His imaging which I have reviewed [...] documented in this encounter Plan of Treatment Upcoming Encounters Date Type Department Care Team (Late st Contact Info) Description 05/05/2025 10:20 AM EDT Office Visit [facility] Cardiothoracic [address], [address] [place] [address] Phillip Clark MD [address] [place] [address] documented as of this encounter Results * [...] documented as of this encounter Care Teams Carbon Setter Relationship Specialty Start Date End Date Kamran Singh MD [address] [place] [address] PCP - General 02/28/25 documented as of this encounter
--- OUTSIDE RECORDS SUMMARY | 2025-04-14 07:13 | XMS_ITS | Encounter Summary ---
Author Organization [facility] Address [address] [place] [address] Care Team Providers Care Automotive Buyer Name Role Phone Kamran Singh MD Primary Care Provider +1- [phone] Reason for Referral * Imaging (Routine) - Closed Specialty Diagnoses / Procedures Referred By Nathalia garcia Referred To Contact Radiology Diagnoses Ascending aortic aneurysm, unspecified whether ruptured (CMS/HCC) Procedures CT Chest wo IV Contrast Phillip Clark MD [address] [address] Phone: tel: fax: Referral ID Status Reason Start Date Expiration Date Visits Re quested Visits Authorized [id number] Closed 03/10/2025 09/09/2026 1 1 Reason for Visit * Imaging (Routine) - Closed Specialty Diagnoses / Procedures Referred By Nathalia garcia Referred To Contact Radiology Diagnoses Ascending aortic aneurysm, unspecified whether ruptured (CMS/HCC) Procedures CT Chest wo IV Contrast Phillip Clark MD [address] [address] Phone: tel: fax: Referral ID Status Reason Start Date Expiration Date Visits Re quested Visits Authorized [id number] Closed 03/10/2025 09/09/2026 1 1 Encounter Details Date Type Department Care Team (Latest Contact Info) Description 04/14/2025 7:13 AM EDT - 04/14/2025 11:59 PM EDT Hospital Encounter PAV G Radiology [address] [place] [address] Ascending aortic aneurysm, unspecified whether ruptured ([facility]) Discharge Disposition: Home or Self Care Social [...] 2 tablets by mouth every morning. Under [place] law, monthly prescriptions (30 days) can be [...] Description 05/05/2025 10:20 AM EDT Office Visit [facility] [address], [address] [place] [address] Phillip Clark MD [address] [place] [address] documented as of this encounter Procedures Procedure Name Priority Date/Time Associated Diagnosis Comments CT CHEST WO IV CONTRAST Routine 04/14/2025 7:46 AM EDT Ascending aortic aneurysm, unspecified whether ruptured ([facility]) documented in this encounter Results * CT [...] documented as of this encounter Care Teams Automotive Buyer Relationship Specialty Start Date End Date Kamran Singh MD [address] [place] [address] PCP - General 02/28/25 documented as of this encounter
--- OUTSIDE RECORDS SUMMARY | 2025-04-14 13:00 | XMS_ITS | Encounter Summary ---
Author Organization [facility] Address [address] [place] [id number] Care Team Providers Care Still Operator Whiskey Name Role Phone Kamran Singh MD Primary Care Provider +1- [phone] Reason for Referral * Imaging (Routine) - Authorized Specialty Diagnoses / Procedures Referred By Nathalia garcia Referred To Contact Cardiology Diagnoses Ascending aortic aneurysm, unspecified whether ruptured (CMS/HCC) Procedures Echo, Adult Transthoracic Complete Phillip Clark MD [address] [address] Phone: tel: fax: Referral ID Status Reason Start Date Expiration Date Visits Requested Visits Authorized [id number] Authorized Perform Procedure 04/14/2025 10/14/2026 1 2 Encounter Details Date Type Department Care Team (Late st Contact Info) Description 04/14/2025 1:00 PM EDT Office Visit [facility] [address], [address] [address] Phillip Clark MD [address] [address] Ascending aortic aneurysm, unspecified whether ruptured (CMS/HCC) (Primary Dx); Aortic valve insufficiency, etiology of cardiac valve [...] Sign Reading Time Taken Comments Blood Pressure 128/64 04/14/2025 12:32 PM EDT Pulse 55 04/14/2025 12:32 PM EDT Temperature - - Respiratory Rate - - Oxygen Saturation 98% 04/14/2025 12:32 PM EDT Inhaled Oxygen Concentration - - Weight 86.9 kg (191 lb 9.3 oz) 04/14/2025 12:32 PM EDT Height 170.2 cm (5' 7 ) 04/14/2025 12:32 PM EDT Body Mass Index 30.01 04/14/2025 12:32 PM EDT documented in this encounter Miscellaneous Notes * Progress Notes - Lorelei Dominique, FARE REGISTER REPAIRER - 04/14/2025 1:00 PM EDT Images from the original note were not included. Reason for visit / Chief Complaint: Follow up evaluation for ascending aortic ectasia, worsening aortic valve regurgitation History of present illness: Bradley Forrest is a 69 y.o. male with history of recent stent placement referred to us in consultationby Dr. Duvall at [facility]. Mr. Forrest is a patient who is known to us that we most recently saw for the first time on 03/10/2025 for a finding of ascending aortic aneurysm. At that time we recommended 6 month follow-up with CT chest for ongoing monitoring of the aortic enlargement, measured as 4.0 cm. Since that visit he had a cardiac catheterization with Dr. Duvall in which he had 2 stents placed and a cardiac MRI revealed severe aortic regurgitation. In light of those new findings,it was felt he should follow up sooner than 6 months for workup of his aortic regurgitation. He repo rts that his chest pain has largely resolved following several days of chest heaviness and tightness after his heart cath. However, he is having noticeable fatigue and dyspnea with activities such aswalking up his long, inclined driveway, where such activities did not effect him in the past. Medical History His chronic comorbid conditions that impact our treatment planning include: Cardiac Surgery: The comorbid conditions that impact and complicate our treatment planning include:Atherosclerosis, Non-peripheral NYHA Classification: Class II: Mild symptoms with ordinary activity. Patient is on beta jade therapy Smoking Cessation: Nonsmoker Active Problems: Patient Active Problem List Diagnosis Date Noted CAD (coronary artery disease) 04/14/2025 History of coronary angioplasty with insertion of stent 04/14/2025 BMI 30.0-30.9,adult 03/10/2025 High cholesterol 12/23/2019 Hypertension 12/23/2019 Medical History: Past Medical History Pertinent Negatives[1] Surgical History: Surgical History[2] Social History: Tobacco: Tobacco Use: Low Risk (03/10/2025) Patient History Smoking Tobacco Use: Never Smokeless Tobacco Use: Never Passive Exposure: Not on file Alcohol: Alcohol Use: Not At Risk (03/10/2025) AUDIT-C Frequency of Alcohol Consumption: Never Average Number of Drinks: Patient does not drink Frequency of Binge Drinking: Never Illicit drug use: Social History Substance and [...] 2 tablets by mouth every morning. Under [place] law, monthly prescriptions (30 days) can be refilled at 25 days and three-month prescriptions (90 days) at 80 days. Please contact the insurance company with questions if refills are denied. Yes Levi Tinajero MD atenolol (Tenormin) 25 MG tablet Take 1 tablet by mouth daily. Patient taking differently: Take 1 tablet by mouth daily. Takes bid Yes Levi Tinajero MD clopidogrel (Plavix) 75 MG tablet Take 1 tablet by mouth daily. 03/23/25 Yes Levi Tinajero MD empagliflozin (Jardiance) 10 MG Take 1 tablet by mouth daily. Yes Levi Tinajero MD ezetimibe (Zetia) 10 MG tablet Take 1 tablet by mouth daily. Yes Levi Tinajero MD ibuprofen 200 MG tablet Take 1 tablet by mouth daily. Yes Levi Tinajero MD losartan (Cozaar) 50 MG tablet Take 1 tablet by mouth daily. Patient taking differently: Take 2 tablets by mouth daily. Yes Levi Tinajero MD Repfreddie SureClick 140 MG/ML solution auto-injector autoinjector Inject 1 mL under the skin every 14days. 02/26/25 Yes Levi Tinajero MD rosuvastatin (Crestor) 40 MG tablet Take 1 tablet by mouth daily. Yes Levi Tinajero MD spironolactone (Aldactone) 25 MG tablet Take 1 tablet by mouth daily. Yes Levi Tinajero MD ASPIRIN 81 MG chewable tablet Chew 1 tablet daily. Levi Tinajero MD lisinopril 40 MG tablet Take 1 tablet by mouth daily. Patient not taking: Reported on 03/10/2025 04/14/25 Levi Tinajero MD Physical exam: Visit Vitals BP 128/64 Pulse 55 Ht 1.702 m (5' 7 ) Wt 86.9 kg (191 lb 9.3 oz) SpO2 98% BMI 30.01 kg/m?? Review of Systems Constitutional: Positive for malaise/fatigue. Cardiovascular: Positive for dyspnea on exertion. All other systems reviewed and are negative. Physical Exam Vitals reviewed. Constitutional: Appearance: Normal appearance. He is obese. HENT: Head: Normocephalic and atraumatic. Right Ear: External ear normal. Left Ear: External ear normal. Nose: Nose normal. Mouth/Throat: Pharynx: Oropharynx is clear. Eyes: Pupils: Pupils are equal, round, and reactive to light. Cardiovascular: Rate and Rhythm: Bradycardia present. Pulses: Normal pulses. Heart sounds: Murmur heard. Pulmonary: Effort: Pulmonary effort is normal. Breath sounds: Normal breath sounds. Abdominal: Palpations: Abdomen is soft. Genitourinary: Comments: Deferred Musculoskeletal: General: Normal range of motion. Cervical back: Normal range of motion and neck supple. Right lower leg: No edema. Left lower leg: No edema. Skin: General: Skin is warm and dry. Capillary Refill: Capillary refill takes less than 2 seconds. Neurological: General: No focal deficit present. Mental Status: He is alert and oriented to person, place, and time. Mental status is at baseline. Psychiatric: Mood and Affect: Mood normal. Behavior: Behavior normal. Thought Content: Thought content normal. Judgment: Judgment normal. Imaging: MR Cardiac FINDINGS: Chest: Lack of IV contrast limits [...] accurate evaluation of the lung apices. Accounting forthis limitation, No focal consolidation or new suspicious nodules. Mediastinum: Otherwise unremarkable. Bones: No acute fracture within the chest. Upper Abdomen: Hypodensities in the left hepatic lobe are stable and probably cysts. IMPRESSION: Stable ectasia of the thoracic ascending aorta. No acute pulmonary process. Cardiac Cath Results: None Impression: Bradley Forrest is a 69 y.o. male with history of recent stent placement referred to us in consultation by Dr. Duvall at [facility]. Mr. Forrest is a patient who is known to us that wemost recently saw for the first time on 03/10/2025 for a finding of ascending aortic aneurysm. At that time we recommended 6 month follow-up with CT chest for ongoing monitoring of the aortic enlargement, measured as 4.0 cm. Since that visit he had a cardiac catheterization with Dr. Duvall in which he had 2 stents placed and a cardiac MRI revealed severe aortic regurgitation. In light of those new findings, it was felt he should follow up sooner than 6 months for workup of his aortic regurgitation. Plan: - Echocardiogram ordered (will try to get it done in [place], closer to patient's home) - Return to clinic following echo to discuss possible surgical options and recommendations with [1] Past Medical History: Diagnosis Date Cardiac murmur Hyperlipidemia Hypertension [2] Past Surgical History: Procedure Laterality Date COLONOSCOPY KNEE SURGERY Right OTHER SURGICAL HISTORY N/A Knee arthroscopy from [facility] SHOULDER SURGERY Right [3] Allergies Allergen Reactions Seafood Hives Cosigned by Phillip Clark MD at 04/22/2025 9:33 AM EDT Associated attestation - Phillip Clark MD - 04/22/2025 9:33 AM EDT The patient was seen by Advanced Practice Provider ([facility]) and myself --care was reviewed with me. documented in this encounter Plan of Treatment Upcoming Encounters Date Type Department Care Team (Late st Contact Info) Description 05/05/2025 10:20 AM EDT Office Visit [facility] [address], [address] [place] [address] Phillip Clark MD [address] [place] [address] Scheduled Orders Name Type Priority Associated Diagnoses Orde r Schedule Echo, Adult Transthoracic Complete Echocardiography Routine Ascending aortic aneurysm, unspecified whether ruptured (CMS/HCC) Expected: 04/14/2025 (Approximate), Expires: 10/16/2026 documented as of this encounter Visit Diagnoses Diagnosis Ascending aortic aneurysm, unspecified whether ruptured (CMS/HCC)- Primary Aortic valve insufficiency, etiology of cardiac valve disease unspecified documented in this encounter Additional Health Concerns Assessment Noted Time A fall risk assessment has been complete d for the patient 04/14/2025 12:34 PM EDT A Body Mass Index follow-up plan has been documented for the patient 04/14/2025 2:26 PM EDT documented as of this encounter Care Teams Still Operator Whiskey Relationship Specialty Start Date End Date Kmaran Singh MD [address] [place] [address] PCP - General 02/28/25 documented as of this encounter
--- NOTE | 2025-05-03 08:59 | XR_ITS ---
FINAL REPORT TECHNIQUE: Chest PA & Lateral CLINICAL HISTORY: rule out pneumonia; respiratory distress COMPARISON: None FINDINGS: 2 views of the chest were performed. The heart size is normal. The mediastinum is within normal limits. There is no acute cardiopulmonary process. There are no pleural effusions. There is no pneumothorax. The bony thorax appears intact. IMPRESSION: No acute cardiopulmonary process. Reviewed, Interpreted and Dictated by Dell Luong MD Transcribed by Nery Smith Authenticated and [facility]
--- OUTSIDE RECORDS SUMMARY | 2025-05-03 09:09 | XMS_ITS | Encounter Summary ---
Author Organization [facility] Address [address] [place] [id number] Care Team Providers Care Music Store Manager Name Role Phone aKmran Singh MD Primary Care Provider +1- [phone] Encounter Details Date Type Department Care Team (Late st Contact Info) Description 03/17/2025 Telephone [facility] [address], [address] [place] [address] Phillip Clark MD [address] [facility] [address] [place] [address] Social History Tobacco Use Types [...] EDT Relayed request for cath per Dr. Clark. Provider acknowledged and will order cath. CT Surg to schedule follow up once cath is done. documented in this encounter Plan of Treatment Upcoming Encounters Date Type Department Care Team (Late st Contact Info) Description 05/05/2025 10:20 AM EDT Office Visit [facility] Cardiothoracic [address], [address] [place] [address] Phillip Clark MD [address] [place] [address] documented as of this encounter Visit Diagnoses Not on filedocumented in this encounter Additional Health Concerns Assessment Noted Time A fall risk assessment has been complete d for the patient 03/10/2025 9:10 AM EDT A Body Mass Index follow-up plan has been documented for the patient 03/10/2025 10:33 AM EDT documented as of this encounter Care Teams Music Store Manager Relationship Specialty Start Date End Date Kamran Singh MD [address] [place] [address] PCP - General 02/28/25 documented as of this encounter
--- OUTSIDE RECORDS SUMMARY | 2025-05-03 09:10 | XMS_ITS | Encounter Summary ---
Author Organization [facility] Address [address] [place] [address] Care Team Providers Care Biostatistics Director Name Role Phone Kamran Singh MD Primary Care Provider +1- [phone] Encounter Details Date Type Department Care Team (Late Contact Info) Description 01/28/2025 Orders Only External Location [address] [place] [address] Provider, External Social History Tobacco Use Types [...] Description 05/05/2025 10:20 AM EDT [facility] Visit [facility] [address], [address] [place] [address] Phillip Clark MD [address] [place] [address] documented as of this encounter Procedures Procedure [...] on filedocumented in this encounter Care Teams Biostatistics Director Relationship Specialty Start Date End Date Kamran Singh MD [address] [place] [address] PCP - General 02/28/25 documented as of this encounter
--- OUTSIDE RECORDS SUMMARY | 2025-05-03 09:10 | XMS_ITS | Encounter Summary ---
Author Organization [facility] Address [address] [place] [address] Care Team Providers Care Basketball Coach Name Role Phone Kamran Singh MD Primary Care Provider +1- [phone] Encounter Details Date Type Department Care Team (Latest Contact Info) Description 04/28/2025 Travel Social History Tobacco Use Types Packs/Day [...] Office Visit [facility] [address], [address] [place] [address] Phillip Clark MD [address] [place] [address] documented as of this encounter Visit Diagnoses Not on filedocumented in this encounter Additional Health Concerns Assessment Noted Time A fall risk assessment has been complete d for the patient 04/14/2025 12:34 PM EDT A Body Mass Index follow-up plan has been documented for the patient 04/14/2025 2:26 PM EDT documented as of this encounter Care Teams Basketball Coach Relationship Specialty Start Date End Date Kamran Singh MD [address] [place] [address] PCP - General 02/28/25 documented as of this encounter
--- OUTSIDE RECORDS SUMMARY | 2025-05-03 09:10 | XMS_ITS | Encounter Summary ---
Author Organization [facility] Address [address] [place] [address] Care Team Providers Care Varnish Inspector Name Role Phone Kamran Singh MD Primary Care Provider +1- [phone] Encounter Details Date Type Department Care Team (Late Contact Info) Description 01/04/2025 Orders Only External Location [address] [place] [address] Provider, External Social History Tobacco Use Types [...] Description 05/05/2025 10:20 AM EDT [facility] [address], [facility] [address] [place] [address] Phillip Clark MD [address] [facility] [address] [place] [address] documented as of this encounter Procedures Procedure [...] on filedocumented in this encounter Care Teams Varnish Inspector Relationship Specialty Start Date End Date Toadvine, Kamran K, MD [address] [facility] [place] [address] PCP - General 02/28/25 documented as of this encounter
--- OUTSIDE RECORDS SUMMARY | 2025-05-03 09:10 | XMS_ITS | Encounter Summary ---
Author Organization [facility] Address [address] [place] [address] Care Team Providers Care Speaker Wirer Name Role Phone Kamran Singh MD Primary Care Provider +1- [phone] Encounter Details Date Type Department Care Team (Late st Contact Info) Description 03/08/2025 Orders Only External Location [address] [place] [address] Jolynn Raya, PROFESSOR OF VIOLIN [address] [facility] [address] [place] [id number] Social History Tobacco Use Types Packs/Day Years [...] Description 05/05/2025 10:20 AM EDT Office Visit [facility] Cardiothoracic [address], [address] [place] [address] Phillip Clark MD [address] [place] [address] documented as of this encounter Procedures Procedure Name Priority Date/Time Associated Diagnosis Comments MR OUTSIDE IMAGES 03/08/2025 10:48 AM EDT documented in this encounter Results * MR transfer of outside films (03/08/2025 10:48 AM EDT) Anatomical Region Laterality Modality Magnetic Resonan ce 03/08/2025 10:4 8 AM EDT us Jolynn Raya PROFESSOR OF VIOLIN IMG MRI PROCEDURES Fin al Result documented in this encounter Visit Diagnoses Not on filedocumented in this encounter Care Teams Speaker Wirer Relationship Specialty Start Date End Date Kamran Singh MD [address] [place] [address] PCP - General 02/28/25 documented as of this encounter
--- OUTSIDE RECORDS SUMMARY | 2025-05-03 09:12 | XMS_ITS | Encounter Summary ---
Author Organization [facility] Address [address] [place] [address] Care Team Providers Care Tar And Ammonia Pump Operator Name Role Phone Kamran Singh MD Primary Care Provider +1- [phone] Encounter Details Date Type Department Care Team [...] Description 05/05/2025 10:20 AM EDT Office Visit [facility] [address], [address] [place] [address] Phillip Clark MD [address] [place] [address] documented as of this encounter Visit Diagnoses Not on filedocumented in this encounter Additional Health Concerns Assessment Noted Time A fall risk assessment has been complete d for the patient 03/10/2025 9:10 AM EDT A Body Mass Index follow-up plan has been documented for the patient 03/10/2025 10:33 AM EDT documented as of this encounter Care Teams Tar And Ammonia Pump Operator Relationship Specialty Start Date End Date Kamran Singh MD [address] [place] [address] PCP - General 02/28/25 documented as of this encounter
--- OUTSIDE RECORDS SUMMARY | 2025-05-03 09:12 | XMS_ITS | Encounter Summary ---
Author Organization [facility] Address [address] [place] [address] Care Team Providers Care Police Lieutenant Name Role Phone Kamran Singh MD Primary Care Provider +1- [phone] Encounter Details Date Type Department Care Team [...] Description 05/05/2025 10:20 AM EDT Office Visit [facility] [address], [address] [place] [address] Phillip Clark MD [address] [place] [address] documented as of this encounter Visit Diagnoses Not on filedocumented in this encounter Additional Health Concerns Assessment Noted Time A fall risk assessment has been complete d for the patient 04/14/2025 12:34 PM EDT A Body Mass Index follow-up plan has been documented for the patient 04/14/2025 2:26 PM EDT documented as of this encounter Care Teams Police Lieutenant Relationship Specialty Start Date End Date Kamran Singh MD [address] [place] [address] PCP - General 02/28/25 documented as of this encounter
--- OUTSIDE RECORDS SUMMARY | 2025-05-03 09:12 | XMS_ITS | Encounter Summary ---
Author Organization [facility] Address [address] [place] [id number] Care Team Providers Care Glass Tinter Name Role Phone Kamran Singh MD Primary Care Provider +1- [phone] Encounter Details Date Type Department Care Team [...] [facility] Visit [facility] [address], [facility] [address] [place] [address] Phillip Clark MD [address] [facility] [address] [place] [address] documented as of this encounter Visit Diagnoses Not on filedocumented in this encounter Additional Health Concerns Assessment Noted Time A fall risk assessment has been complete d for the patient 03/10/2025 9:10 AM EDT A Body Mass Index follow-up plan has been documented for the patient 03/10/2025 10:33 AM EDT documented as of this encounter Care Teams Glass Tinter Relationship Specialty Start Date End Date Kamran Singh MD [address] [place] [address] PCP - General 02/28/25 documented as of this encounter
--- OUTSIDE RECORDS SUMMARY | 2025-05-03 09:12 | XMS_ITS | Clinical Summary ---
Author Organization [facility] Address [address] [place] [id number] Care Team Providers Care Full Stack Software Developer Name Role Phone Kamran Singh MD Primary Care Provider +1- [phone] Allergies Active Allergy Reactions Criticality Noted Date [...] 2 tablets by mouth every morning. Under [place] law, monthly prescriptions (30 days) can be [...] Encounters Date Type Department Care Team Description 04/28/2025 Travel 04/14/2025 1:00 PM EDT Office Visit [facility] Cardiothoracic [address], [address] [place] [address] Phillip Clark MD Ascending aortic aneurysm, unspecified whether ruptured (CMS/HCC) (Primary Dx); Aortic valve insufficiency, etiology of cardiac valve disease unspecified 04/14/2025 7:13 AM EDT - 04/14/2025 11:59 PM EDT Hospital Encounter [facility] [address] [place] [address] Ascending aortic aneurysm, unspecified whether ruptured (CMS/HCC) Discharge Disposition: Home or Self Care 04/14/2025 Travel 04/08/2025 Travel 03/17/2025 Telephone [facility] Cardiothoracic [address] [facility], [address] [place] [address] Phillip Clark MD 03/10/2025 9:00 AM EDT Consult [facility] Cardiothoracic [address], [address] [place] [address] Phillip Clark MD Ascending aortic aneurysm, unspecified whether ruptured (CMS/HCC) (Primary Dx); Primary hypertension; Aortic valve insufficiency, etiology of cardiac valve disease unspecified 03/10/2025 Travel 03/08/2025 Orders Only External Location [address] [place] [address] Jolynn Raya APRN from Last 3 Months Family History Medical [...] 04/14/2025 12:32 PM EDT Plan of Treatment Upcoming Encounters Date Type Department Care Team (Late st Contact Info) Description 05/05/2025 10:20 AM EDT Office Visit [facility] Cardiothoracic [address] [facility] [address] [place] [address] Phillip Clark MD [address] [address] Health Maintenance Due Date Last Done Comments [...] 2005 [facility]-Zoster Vaccines (1 of 2) 2005 [id number] Vaccine ( season) 2025 06/22/2022, 01/19/2022, 07/12/2021, Additional history exists [facility]-Influenza [...] OUTSIDE IMAGES 03/08/2025 10: 48 AM EDT from Last 3 Months Results [...] 10:4 8 AM EDT us Jolynn Raya INTEGRATION SOFTWARE DEVELOPER IMG MRI PROCEDURES Fin al Result from Last 3 Months Insurance [facility] MEDIC[facility] Care Teams Full Stack Software Developer Relationship Specialty Start Date End Date Kamran Singh MD [address] [place] [address] PCP - General 02/28/25
[2025-05-03 10:09] LABS: Hematocrit 47.0 % (42.0-52.0); Hemoglobin 15.1 g/dL (14.1-18.0); Immature Granulocytes % 0.4 %; Mean Corpuscular HGB Conc 32.1 g/dL (31.8-35.4); Mean Corpuscular Hemoglobin 27.7 pg (27.0-31.2); Mean Corpuscular Volume 86.2 fl (80-94); Nucleated Red Blood Cells % 0 %; Platelet Count 189 K/mm3 (142-424); Red Blood Count 5.45 M/mm3 (4.60-6.20); Red Cell Distribution Width-SD 49.6 fL; White Blood Count 5.4 K/mm3 (4.8-10.8)
[2025-05-03 10:28] LABS: Albumin Level 4.3 g/dl (3.5-5.0); Chloride 106 mmol/L (98-107); Potassium 4.4 mmoL/L (3.5-5.1); Sodium 137 mmol/L (136-145)
[2025-05-03 10:30] LABS: Blood Urea Nitrogen 20 mg/dl (9-20)
[2025-05-03 10:31] LABS: Alanine Aminotransferase 31 U/L (12-78); Alkaline Phosphatase 80 U/L (38-126); Anion Gap 10.4 mEq/L (5-15); Aspartate Amino Transferase 38 U/L (17-59); Bilirubin,Direct 0.1 mg/dl (0.0-0.4); Bilirubin,Indirect 0.8 mg/dL (0.0-0.9); Bilirubin,Total 0.9 mg/dl (0.2-1.3); Bilirubin,Unconjugated 0.7 mg/dL (0.0-1.1); Calcium 9.3 mg/dl (8.4-10.2); Carbon Dioxide 25 mmol/L (22.0-30.0); Cholesterol 159 mg/dl (140-200); Creatinine,Serum 0.80 mg/dl (0.66-1.25); Estimated Glomerular Filt Rate 96 ml/min (>60); GFR (African American) 116 ML/MIN (>60); Glucose 94 mg/dl (74-100); Total Protein,Serum 6.8 g/dl (6.3-8.2); Triglycerides 199 mg/dl (30-150)
[2025-05-03 10:32] LABS: HDL Cholesterol 51 mg/dl (40-60); Magnesium 2.0 mg/dl (1.6-2.3)
[2025-05-03 10:49] LABS: Free T4 (Free Thyroxine) 0.82 ng/dl (0.78-2.19)
[2025-05-03 11:03] LABS: Thyroid Stimulating Hormone 1.39 uIU/mL (0.465-4.68)
== END 2025-05-03 23:59 | disposition home or self-care (01) ==
LOC: LAB 08:58
PROVIDERS: PCP Family Medicine; Visit Provider Nurse Practitioner
DX: I25.10 Atherosclerotic heart disease of native coronary artery without angina pectoris (principal); I10 Essential (primary) hypertension; R06.89 Other abnormalities of breathing
CPT/HCPCS: 36415; 71046; 80048; 80061; 80076; 83735; 84439; 84443; 85025

== ENCOUNTER 2025-06-22 11:55 | Outpatient (CLI) | payer BC, MEDICARE, SELFPAY ==
--- OUTSIDE RECORDS SUMMARY | 2025-05-05 10:20 | XMS_ITS | Encounter Summary ---
Author Organization [facility] Address [address] [id number] Care Team Providers Care Group Burner Machine Name Role Phone Kamran Singh MD Primary Care Provider +1- [phone] Encounter Details Date Type Department Care Team (Latest Contact Info) Description 05/05/2025 10:20 AM EDT Office Visit [facility] [address], [address] [place] [address] Phillip Clark MD [address] [place] [address] Severe aortic regurgitation (Primary Dx) [...] 2 tablets by mouth every morning. Under [place] law, monthly prescriptions (30 days) can be [...] present and normoactive x 4 quadrants SKIN: [place], warm, and dry. No rash, sores, or [...] Description 07/07/2025 2:40 PM EST Office Visit [facility] [address], [address] [place] [address] Phillip Clark MD [address] [place] [address] documented as of this encounter Visit Diagnoses Diagnosis Severe aortic regurgitation- Primary documented in this encounter Additional Health Concerns Assessment Noted Time A fall risk assessment has been complete d for the patient 05/05/2025 9:58 AM EDT A Body Mass Index follow-up plan has been documented for the patient 05/05/2025 10:51 AM EDT documented as of this encounter Care Teams Group Burner Machine Relationship Specialty Start Date End Date Kamran Singh MD [address] [place] [address] PCP - General 02/28/25 documented as of this encounter
--- OUTSIDE RECORDS SUMMARY | 2025-06-07 08:30 | XMS_ITS | Encounter Summary ---
Author Organization [facility] Address [address] [place] [address] Care Team Providers Care Finger Cobbler Name Role Phone Kamran Singh MD Primary Care Provider +1- [phone] Encounter Details Date Type Department Care Team (Late st Contact Info) Description 06/07/2025 8:30 AM EDT Pre-Admission Testing [place] [facility] [address], [address] [place] [phone] Social History Tobacco Use Types Packs/Day Years [...] any time in the past 12 m [facility], were you homeless or living in a fdc (including now)? No 06/15/2025 [facility] Utilities Answer Date Recorded In the [...] with Phillip Clark MD on 06/14/2025 at [facility] under general anesthesia. aortic enlargement, measured [...] fibrillation, CHF, dysrhythmias, hyperlipidemia, pacemaker or past [place]. hypertension: Exercise tolerance is 1 flight of [...] 2 tablets by mouth every morning. Under [place] law, monthly prescriptions (30days) can be refilled [...] card, photo ID, along with power of celery stripper, guardianship or advanced directives if applicable Do [...] Office Visit [place] [facility] [address], [address] [place] [address] Phillip Clark MD [address] [place] [address] documented as of this encounter Visit Diagnoses Not on filedocumented in this encounter Additional Health Concerns Assessment Noted Time A fall risk assessment has been complete d for the patient 05/05/2025 9:58 AM EDT A Body Mass Index follow-up plan has been documented for the patient 05/05/2025 10:51 AM EDT documented as of this encounter Care Teams Finger Cobbler Relationship Specialty Start Date End Date Kamran Singh MD [address] [place] [address] PCP - General 02/28/25 documented as of this encounter
--- OUTSIDE RECORDS SUMMARY | 2025-06-09 12:20 | XMS_ITS | Encounter Summary ---
Author Organization [facility] Address [address] [id number] Care Team Providers Care Oracle Adf Consultant Name Role Phone Kamran Singh MD Primary Care Provider +1- [phone] Encounter Details Date Type Department Care Team (Latest Contact Info) Description 06/09/2025 12:20 PM EDT Office Visit [facility] [address], [address] [place] [address] Phillip Clark MD [address] [place] [address] Severe aortic regurgitation (Primary Dx) [...] Notes * Progress Notes - Lorelei Dominique, CONVERTING TECHNICIAN - 06/09/2025 12:20 PM EDT Reason [...] 2 tablets by mouth every morning. Under [place] [employer] [place] law, monthly prescriptions (30 days) can be refilled at 25 days and three-month prescriptions (90 days) at 80 days. Please contact the insurance company with questions if refills are denied. Patient taking differently: Take 2 tablets by mouth every 4 hours as needed. Under [place] [employer] [place] law, monthly prescriptions (30 days) can be [...] Description 07/07/2025 2:40 PM EST Office Visit [facility] Cardiothoracic [address], [address] [place] [address] Phillip Clark MD [address] [place] [phone] documented as of this encounter Results * [...] LAB HEMATOLOGY METHOD 06/09/2025 3:49 PM EDT [facility] RBC Count 5.62 4.60 - 6.10 10*6/uL LAB HEMATOLOGY METHOD 06/09/2025 3:49 PM EDT [facility] HGB 15.6 13.7 - 17.5 g/dL LAB HEMATOLOGY METHOD 06/09/2025 3:49 PM EDT [facility] HCT 49.2 40.0 - 51.0 % LAB HEMATOLOGY METHOD 06/09/2025 3:49 PM EDT [facility] Platelet Count 205 155 - 369 10*3/uL LAB HEMATOLOGY METHOD 06/09/2025 3:49 PM EDT [facility] MCV 88 79 - 98 fL LAB HEMATOLOGY METHOD 06/09/2025 3:49 PM EDT [facility] MCH 27.8 26.0 - 32.0 pg LAB HEMATOLOGY METHOD 06/09/2025 3:49 PM EDT [facility] MCHC 31.7 30.7 - 35.5 g/dL LAB HEMATOLOGY METHOD 06/09/2025 3:49 PM EDT [facility] RDW 15.3(H) 11.5 - 14.5 % LAB HEMATOLOGY METHOD 06/09/2025 3:49 PM EDT [facility] MPV 10.6 8.8 - 12.5 fL LAB HEMATOLOGY METHOD 06/09/2025 3:49 PM EDT [facility] nRBC 0.0 <=0.0 per 100 WBCs LAB HEMATOLOGY METHOD 06/09/2025 3:49 PM EDT [facility] Blood Venous blood specimen / Unknown Venipuncture / Unknown 06/09/2025 1:39 PM EDT 06/09/2025 1:40 PM EDT us Phillip Clark MD LAB BLOOD ORDERABLES Final R esult [facility] [address] [place] [address] * Comprehensive Metabolic Panel, Plasma (06/09/2025 1:39 PM EDT) [facility] Glucose, Plasma 86 74 - 99 mg/dL 06/09/2025 3:57 PM EDT [facility] BUN, Plasma 15 8 - 23 mg/dL 06/09/2025 3:57 PM EDT [facility] Creatinine, Plasma 0.85 0.70 - 1.20 mg/dL 06/09/2025 3:57 PM EDT [facility] BUN/Creatinine Ratio 18 06/09/2025 3:57 PM EDT [facility] Sodium, Plasma 139 136 - 145 mmol/L 06/09/2025 3:57 PM EDT [facility] Potassium, Plasma 4.7 3.6 - 4.9 mmol/L 06/09/2025 3:57 PM EDT [facility] Chloride, Plasma 107 97 - 107 mmol/L 06/09/2025 3:57 PM EDT [facility] CO2, Plasma 24 22 - 29 mmol/L 06/09/2025 3:57 PM EDT [facility] Anion Gap 8 6 - 16 mmol/L 06/09/2025 3:57 PM EDT [facility] Total Calcium, Plasma 9.0 8.9 - 10.2 mg/dL 06/09/2025 3:57 PM EDT [facility] Total Protein 6.6 6.3 - 7.9 g/dL 06/09/2025 3:57 PM EDT [facility] Albumin, Plasma 4.2 3.5 - 5.2 g/dL 06/09/2025 3:57 PM EDT [facility] AST, Plasma 23 10 - 50 U/L 06/09/2025 3:57 PM EDT [facility] ALT, Plasma 23 10 - 50 U/L 06/09/2025 3:57 PM EDT [facility] Alkaline Phosphatase, Plasma 66 40 - 115 U/L 06/09/2025 3:57 PM EDT [facility] Total Bilirubin, Plasma 0.8 0.2 - 1.1 mg/dL 06/09/2025 3:57 PM EDT [facility] eGFRcr 94.1 mL/min/1.7 3m*2 06/09/2025 3:57 PM EDT [facility] Comment:Reported eGFRcr in m L/min/1.73m2 is based the CKD-EPI 2020 equation that does not use a race coefficient. Blood Venous blood specimen / Unknown Venipuncture / Unknown 06/09/2025 1:39 PM EDT 06/09/2025 1:40 PM EDT us Phillip Clark MD LAB BLOOD ORDERABLES Final R esult [facility] [address] [place] [address] * (ABNORMAL) Hemoglobin A1c (06/09/2025 1:39 PM EDT) Hemoglobin A1c 5.7(H) <5.7 % 06/09/2025 6:09 PM EDT [facility] Blood Venous blood specimen / Unknown Venipuncture / Unknown 06/09/2025 1:39 PM EDT 06/09/2025 1:40 PM EDT Narrative [facility] - 06/09/2025 6:09 PM EDT HA1C Interpretive Data: Diagnosis of Diabetes: Diabetic > or = 6.5% Pre-diabetic 5.7 to 6.4% Non-diabetic < or = 5.6% Glycemic Targets for Type I and Type II Diabetics: Non- Adults <7.0% Adults <6.0% Children and Adolescents <7.5% Source: [place] [employer]. Standards of medical care in diabetes,2017. Diabetes Care.2017:40 (suppl 1):S1-S135. Phillip Clark MD LAB BLOOD ORDERABLES Final R esult [facility] [address] [place] [address] * Protime-INR (06/09/2025 1:39 PM EDT) Prothrombin Time 13.6 12.0 - 14.3 sec LAB COAGULATION METHOD 06/09/2025 3:58 PM EDT [facility] INR 1.0 0.9 - 1.1 LAB COAGULATION METHOD 06/09/2025 3:58 PM EDT [facility] Blood Venous blood specimen / Unknown Venipuncture / Unknown 06/09/2025 1:39 PM EDT 06/09/2025 1:40 PM EDT Narrative [facility] - 06/09/2025 3:58 PM EDT OPTIMAL INR RANGES FOR PATIENT ON ORAL ANTICOAGULANT THERAPY Prevention of venous thromboembolism INR 2.0 to 3.0 In patients with heart disease: Atrial fibrillation INR 2.0 to 3.0 Valvular heart disease INR 2.0 to 3.0 Tissue heart valves INR 2.0 to 3.0 Mechanical prosthetic valves INR 2.5 to 3.5 Prevention of recurrent MS INR 2.5 to 3.5 Phillip Clark MD LAB BLOOD ORDERABLES Final R esult Performing Organization Address City/[facility]/ZIP Co de Phone Number [facility] [address] [place] [address] * APTT (06/09/2025 1:39 PM EDT) aPTT 33 25 - 35 sec LAB COAGULATION METHOD 06/09/2025 3:58 PM EDT [facility] Blood Venous blood specimen / Unknown Venipuncture / Unknown 06/09/2025 1:39 PM EDT 06/09/2025 1:40 PM EDT Phillip Clark MD LAB BLOOD ORDERABLES Final R esult Performing Organization Address [facility] [place] [address] * Type & Screen, 30 Days (06/09/2025 [...] ORDERABL ES Final Result BLOOD BANK [address] [place] [address], documented in this encounter Visit Diagnoses Diagnosis Severe aortic regurgitation- Primary Severe aortic regurgitation documented in this encounter Additional Health Concerns Assessment Noted Time A fall risk assessment has been complete d for the patient 06/09/2025 12:15 PM EDT A Body Mass Index follow-up plan has been documented for the patient 06/09/2025 2:00 PM EDT documented as of this encounter Care Teams Oracle Adf Consultant Relationship Specialty Start Date End Date Kamran Singh MD [address] [place] [address] PCP - General 02/28/25 documented as of this encounter
--- OUTSIDE RECORDS SUMMARY | 2025-06-09 13:42 | XMS_ITS | Encounter Summary ---
Author Organization [facility] Address [address] [place] [address] Care Team Providers Care Glass Cleaner Name Role Phone Kamran Singh MD Primary Care Provider +1- [phone] Encounter Details Date Type Department Care Team (Latest Contact Info) Description 06/09/2025 1:42 PM EDT - 06/09/2025 11:59 PM EDT Hospital Encounter [place] [facility] [address], [address] [place] [address] Severe aortic regurgitation Discharge Disposition: Home or [...] time in the past 12 m [facility], were you homeless or living in a retirement (including now)? No 06/15/2025 [facility] Utilities Answer Date Recorded In the past [...] mouth daily. 30 tablet 2 06/20/2025 09/18/19 ezetimibe (Zetia) 10 MG tablet Take 1 [...] a day. 60 tablet 2 06/20/2025 12/18/19 methocarbamol (Robaxin) 500 MG tablet Take 1 [...] needed for moderate pain. 18 tablet 06/20/2025 potassium chloride CR (Klor-Con M20) 20 MEQ ER tablet Take 1 tablet by mouth daily for 3 days. Do not crush or chew. Take for 3 days only; to be taken with Lasix (furosemide) 40mg once daily for 3 days only. 3 tablet 06/20/2025 06/23/20 25 Repatha SureClick 140 MG/ML solution auto-injector autoinjector Inject 1 mL under the skin every 14 days. 02/26/2025 rosuvastatin (Crestor) 40 MG tablet Take 1 tablet by mouth daily. 30 tablet 2 06/20/2025 09/18/19 senna (Senokot) 8.6 MG tablet Take 2 tablets by mouth nightly for 10 days. Hold for loose stools 20 tablet 06/20/2025 06/30/20 spironolactone (Aldactone) 25 MG tablet Take 1 tablet by mouth daily. holding 06/20/2025 warfarin (Coumadin) 2 MG tablet Take 2 tablets by mouth daily. 4mg daily until you get your INR drawn on Jun 22, then as directed. 60 tablet 11 06/20/2025 acetaminophen (Tylenol) 325 MG tablet Take 2 [...] 1 tablet by mouth daily. 03/23/2025 06/20/20 25 empagliflozin (Jardiance) 10 MG Take 1 tablet by mouth daily. 06/20/20 ezetimibe (Zetia) 10 MG tablet Take 1 tablet by mouth daily. 06/20/20 25 ibuprofen 200 MG tablet Take 1 tablet [...] Description 07/07/2025 2:40 PM EST Office Visit [place] [facility] [address], [address] [place] [address] Phillip Clark MD [address] [place] [address] documented as of this encounter [...] as of this encounter Care Teams Glass Cleaner Relationship Specialty Start Date End Date Kamran Singh MD [address] [place] [address] PCP - General 02/28/25 documented as of this encounter
--- OUTSIDE RECORDS SUMMARY | 2025-06-14 05:18 | XMS_ITS | Encounter Summary ---
Author Organization [facility] Address [address] [id number] Care Team Providers Care [employer] Sales Consultant Name Role Phone Kamran Singh MD Primary Care Provider [phone] Reason for Referral * Consultation (Routine) - Authorized Specialty Diagnoses / Procedures Referred By Nathalia garcia Referred To Contact Cardiac Rehabilitation Diagnoses S/P AVR Phillip Clark MD [address] [address] Phone: tel: fax: Referral ID Status Reason Start Date Expiration Date V isits Requested Visits Authorized [id number] Authorized 06/20/2025 12/20/2026 1 1 Reason for Visit * Auth/Cert (Routine) Specialty Diagnoses / Procedures Referred By Nathalia garcia Referred To Contact Diagnoses Severe aortic regurgitation Severe aortic regurgitation [I35.1] Procedures SD -AORT GRF W/CARD BYP F/AORTIC DISSECTION AORTIC ROOT RECONSTRUCTION Phillip Clark MD [address] [address] Phone: tel: fax: [facility] OPERATING ROOM [address] [place] [address] Phone: tel: Referral ID Status Reason Start Date Expiration Date Visits Re quested Visits Authorized [id number] 1 1 Encounter Details Date Type Department Care Team (Latest Contact Info) Description 06/14/2025 5:18 AM EDT - 06/20/2025 2:25 PM EDT Hospital Encounter [facility] Inpatient [address] [place] [address] Phillip Clark MD [address] [place] [address] Other secondary hypertension (Primary Dx); [...] any time in the past 12 m [facility], were you homeless or living in a penitentiary (including now)? No 06/15/2025 [facility] Utilities Answer Date Recorded In [...] 3 days only. 3 tablet 06/20/2025 5 Repatha SureClick 140 MG/ML solution auto-injector autoinjector Inject 1 mL under the skin every 14 days. 02/26/2025 rosuvastatin (Crestor) 40 MG tablet Take 1 tablet by mouth daily. 30 tablet 2 06/20/2025 6 senna (Senokot) 8.6 MG tablet Take 2 tablets by mouth nightly for 10 days. Hold for loose stools 20 tablet 06/20/2025 5 spironolactone (Aldactone) 25 MG tablet Take 1 tablet by mouth daily. holding 06/20/2025 warfarin (Coumadin) 2 MG tablet Take 2 tablets by mouth daily. 4mg daily until you get your INR drawn on Jun 22, then as directed. 60 tablet 11 06/20/2025 documented as of this encounter Miscellaneous [...] a referral and prefers to attend at [facility]. [place] will contact Mr. Forrest to discuss and [...] 2. Eligibility: Heart valve surgery 3. Exceptions/exclusions: [facility] Cardiac Rehab Exclusions: None 4. Referral: [facility] Cardiac Rehab Referral: Patient agreed with referral to the cardiac rehabilitation program at [facility] in [place], [place], phone number [phone]. 5. Information sent: Information Sent: Appropriate information will be sent to the receiving cardiac rehabilitation program.: * Progress Notes - Oumou Berger - 06/20/2025 10:15 AM EDT Case Management Discharge Note Bradley Forrest 69 y.o. male CSN: [id number] Admission: 06/14/2025 5:18 AM Primary Problem: Aortic valve regurgitation Primary Station Installation Supervisor: Primary Caregiver: Self Assistance Available at Discharge: Current Outpatient/Agency/Support Group: DME Availability of Care Givers (#Hours): Other (comment) (As needed) Family/Station Installation Supervisor(s) Willingness Assessed to care for patient at home: Yes Family/Station Installation Supervisor(s) Readiness Assessed to care for patient at [...] Recieved By: patient Follow-up: Jolynn Pollard APRN [facility] Cardiology [address] [place] [address] [address], [place] [address] Go on 08/22/2025 Your cardiology appointment is on August 22 at 11am Please arrive 15 minutes early and bring UPDATED medication list. [address] [facility] [id number] Go on 06/22/2025 Your first appointment for your Warfarin/Coumadin management is this FridayJune 22 at 11:30am. Please report to [facility] front admission desk and tell them you are checking in to the Pharmacy Anticoagulation Clinic. The general accounting clerk will call the pharmacist who will meet you in the lobby and escort you to the clinic. Please bring all medications you are taking and your insurance card. If you have any issues please call [phone] ext: [phone] and then choose option 2. Discharge Transportation: Transportation Anticipated: family or friend will provide Transportation Home at Discharge: Family/Friend will Provide Follow Up Transport: Transportation Needed to Follow up Appoinments: Family/Friend will Provide Additional Comments: SW spoke with primary team this date who indicate the pt is medically stable for DC this date and does not require further [facility]-based care. Pt to DC home with , to transport. Covering RNCM ordered rollator from [facility] to be delivered to bedside. [...] Plan Anticoagulation Plan Warfarin Pharmacist Managed?: No [facility] Warfarin Dosing Protocol Followed?: No Reason for Protocol Departure: CT Surgery Bridging Agent in Conjunction With Warfarin? : No INR Monitoring Frequency: Monitor INR daily Patient Education : Complete and documented Warfarin dosing and adjustment per CT surgery provider. Transitions of Care Outpatient provider managing warfarin after [facility] discharge: TBD - possibly [place] [facility] Recommended date for outpatient INR assessment: TBD - of note, enoxparin copay $0 for 7 day supply Will continue to follow patient's clinical progress daily. Libia Stevenson PharmD, BCCP Clinical Pharmacist - Cardiothoracic Surgery Available via [employer] * Progress Notes - Phillip Clark MD [...] Ongoing, Progressing Intervention: Promote Activity and Functional Wilbarger Flowsheets (Taken 06/19/20251704 by Vicente Hussein, RN) Activity Assistance Provided: assistance, stand-by Adaptive Equipment Use: use encouraged Self-Care Promotion: independence encouraged Problem: Self-Care Deficit Goal: Improved Ability to Complete Activities of Daily Living Outcome: Ongoing, Progressing Intervention: Promote Activity and Functional Wilbarger Flowsheets (Taken 06/19/20251704 by Vicente Hussein RN) [...] Ongoing, Progressing Intervention: Promote Activity and Functional Wilbarger Flowsheets (Taken 06/19/20251704) Activity Assistance Provided: assistance, [...] Positioning: HOB elevated Taken 06/19/2025344 by Lori oMlina RN Pressure Reduction Techniques: weight shift assistance [...] Ongoing, Progressing Intervention: Promote Activity and Functional Wilbarger Flowsheets (Taken 06/19/20251704) Activity Assistance Provided: assistance, [...] Plan Anticoagulation Plan Warfarin Pharmacist Managed?: No [facility] Warfarin Dosing Protocol Followed?: No Reason for Protocol Departure: CT Surgery Bridging Agent in Conjunction With Warfarin? : No Goal PTT/anti-Xa: 2.5-3.5 INR Monitoring Frequency: Monitor INR daily Patient Education : Complete and documented Warfarin dosing and adjustment per CT surgery provider. Transitions of Care Outpatient provider managing warfarin after [facility] discharge: TBD - possibly clinic Recommended date for outpatient INR assessment: TBD - of note, enoxparin copay $0 for 7 day supply Will continue to follow patient's clinical progress daily. Prashant Aguilra, Alicia PGY2 Critical Care Resident Available on [...] rhythm - continue warfarin CT surgery pager [phone] [1] acetaminophen, 650 mg, Oral, q4h DEMETRIUS [...] Care Reviewed With: patient family Taken 06/18/2025 0053 Outcome Evaluation: Plan of care discussed with [...] Ongoing, Progressing Intervention: Promote Activity and Functional Wilbarger Flowsheets (Taken 06/19/2025344) Activity Assistance Provided: assistance, stand-by Self-Care Promotion: independence encouraged Problem: Self-Care Deficit Goal: Improved Ability to Complete Activities of Daily Living Outcome: Ongoing, Progressing Intervention: Promote Activity and Functional Wilbarger Flowsheets (Taken 06/19/2025344) Activity Assistance Provided: assistance, [...] Intervention: Promote Wound Healing Flowsheets (Taken 06/19/2025 6913) Sleep/Rest Enhancement: awakenings minimized consistent schedule promoted regular sleep/rest pattern promoted room darkened * Jelanimassimo Samantha - Brittaney Dumas RN - 06/18/2025 6:29 PM EDT Images from the original note were not included. [id number] Tratamiento para contracciones ventriculares prematuras (CVP) Las [...] Confusi??n. Last Reviewed Date: 2024 00:00:00 ?? 1596-2006 [employer]. All rights reserved. This information is not intended as a substitute for professional medical care. Always follow your healthcare professional's instructions. * Gabriel GonsalezTRISTAN - Brittaney Dumas RN - 06/18/2025 6:29 PM EDT Images from the original note were not included. [id number] C??mo comprender las contracciones ventriculares prematuras (CVP) [...] se??al activa partes cercanas del coraz??n contraer. Milroy permite que el coraz??n se comprima de [...] card??acos anteriores, el coraz??n expulsar?? muypoca mushtaq. Milroy provoca aria sensaci??n de pausa entre latidos. El siguiente latido card??aco suele ser m??s bea, ya que la pausa lo permite que el coraz??n descanse y se llene de mushtaq. Milroy lleva a aria sensaci??n de latido card??aco [...] port??til jameson unos d??as o incluso semanas. Milroy puede ayudar a diagnosticar los CVP que [...] autocontenido que puede registrar beaver ritmo card??aco jmaeson hasta 2 semanas. ? Insertable (o monitor [...] im??genes del coraz??n. ? An??lisis de mushtaq. Milroy se hace para comprobar los electrolitos y concentraciones tiroideas. Last Reviewed Date: 2024 00:00:00 ?? 2117-6749 [employer]. All rights reserved. This information is not intended as a substitute for professional medical care. Always follow your healthcare professional's instructions. * Gabriel Singh - Brittaney Dumas RN - 06/18/2025 6:29 PM EDT Images from the original note were not included. [id number] Tratamiento para contracciones ventriculares prematuras (CVP) Las [...] Confusi??n. Last Reviewed Date: 2024 00:00:00 ?? 1469-2920 [employer]. All rights reserved. This information is not intended as a substitute for professional medical care. Always follow your healthcare professional's instructions. * Gabriel Singh - Brittaney Dumas RN - 06/18/2025 6:29 PM EDT Images from the original note were not included. 18690mg C??mo comprender las contracciones ventriculares prematuras (CVP) [...] se??al activa partes cercanas del coraz??n contraer. Milroy permite que el coraz??n se comprima de [...] card??acos anteriores, el coraz??n expulsar?? muypoca mushtaq. Milroy provoca aria sensaci??n de pausa entre latidos. El siguiente latido card??aco suele ser m??s bea, ya que la pausa lo permite que el coraz??n descanse y se llene de mushtaq. Milroy lleva a aria sensaci??n de latido card??aco [...] port??til jameson unos d??as o incluso semanas. Milroy puede ayudar a diagnosticar los CVP que [...] im??genes del coraz??n. ? An??lisis de mushtaq. Milroy se hace para comprobar los electrolitos y concentraciones tiroideas. Last Reviewed Date: 2024 00:00:00 ?? 1414-3835 [employer]. All rights reserved. This information is not intended as a substitute for professional medical care. Always follow your healthcare professional's instructions. * Gabriel Singh - Brittaney Dumas RN - 06/18/2025 6:28 PM EDT Images from the original note were not included. 16823 Treatment for Premature Ventricular Contractions (PVCs) Premature [...] confusion Last Reviewed Date: 2024 00:00:00 ?? 5392-6549 [employer]. All rights reserved. This information is not intended as a substitute for professional medical care. Always follow your healthcare professional's instructions. * Gabriel Singh - Brittaney Dumas RN - 06/18/2025 6:28 PM EDT Images from the original note were not included. 82882 Understanding Premature Ventricular Contractions (PVCs) Premature ventricular [...] to 2 weeks. ? Insertable (or implantable) communications project lead. This small device is implanted under the [...] levels. Last Reviewed Date: 2024 00:00:00 ?? 6146-9697 [employer]. All rights reserved. This information is not [...] Plan Anticoagulation Plan Warfarin Pharmacist Managed?: No [facility] Warfarin Dosing Protocol Followed?: No Bridging [...] Ongoing, Progressing Intervention: Promote Activity and Functional Wilbarger Flowsheets (Taken 06/18/202558) Activity Assistance Provided: assistance, 1 person Self-Care Promotion: independence encouraged Problem: Self-Care Deficit Goal: Improved Ability to Complete Activities of Daily Living Outcome: Ongoing, Progressing Intervention: Promote Activity and Functional Wilbarger Flowsheets (Taken 06/18/202558) Activity Assistance Provided: assistance, [...] from the original note were not included. [id number] Warfarin IMPORTANT WARNING: Warfarin may cause severe [...] doctor or pharmacist will give you the transmission builder's patient information sheet (Medication Guide) when you begin treatment with warfarin and each time you refill your prescription. Read the information carefully and ask your doctor or pharmacist if you have any questions. You can also visit the Food and Drug Administration (FDA) website (https://www.fda.gov/downloads/Drugs/DrugSafety/kiq649457.pdf) or the transmission builder's website to obtain the Medication Guide. Talk [...] amounts of vitamin K-containing food on a grkj-qu-jjcj basis. Do not eat large amounts of [...] be awakened, immediately call emergency services at 621. Symptoms of overdose may include the following: [...] of all of the prescription and nonprescription (ritv-oth-kprlidh) medicines, vitamins, minerals, and dietary supplements you [...] or pharmacist about specific clinical use. The [employer] represents that the information provided hereunder was formulated with a reasonable standard of care, and in conformity with professional standards in the field. The [employer] makes no representations or warranties, express or implied, including, but not limited to, any implied warranty of merchantability and/or fitness for a particular purpose, with respect to such information and specifically disclaims all such warranties. Users are advised that decisions regarding drug therapy are complex medical decisions requiring the independent, informed decision of an appropriate health pharmacy care coordinator, and the information is provided for informational purposes only. The entire monograph for a drug should be reviewed for a thorough understanding of the drug's actions, uses and side effects. The [employer] does not endorse or recommend the use of any drug.The information is not a substitute for medical care. AHFS?? Patient Medication Information?. ?? Copyright, 2023. The [employer]??, [address], [address], [place], [place]. All Rights Reserved. Duplication for commercial use must be authorized by [facility]. Selected Revisions: February 13, 2017. AHFS?? Patient Medication Information?. ?? Copyright, 2024 * Gabriel GonsalezALONZO - Sydni Munson RN - 06/17/2025 12:42 PM EDT Images from the original note were not included. 22881 Recovery From Heart Surgery: The First Few [...] stop Last Reviewed Date: 2024 00:00:00 ?? 2828-8978 [employer]. All rights reserved. This information is not [...] from the original note were not included. 65118 After Heart Valve Surgery For the first [...] headache Last Reviewed Date: 2023 00:00:00 ?? 8908-6681 [employer]. All rights reserved. This information is not intended as a substitute for professional medical care. Always follow your healthcare professional's instructions. * Discharge Instr - Other Orders - Sydni Munson RN - 06/17/2025 12:39 PM EDT Please arrive 30 minutes early for your appointment with Dr. Clark Prior to your appointment, go to the radiology department on the 1st floor of the [facility] near [facility] for a chest x-ray. Then go [...] Sydni Munson CT Surgery Nurse Navigator at [phone] Friday through Friday 7am- 3:30pm [facility] [phone] after 3:30 pm, weekends and holidays - ask for the CT surgeon operations representative. * Progress Notes - Brooke Valdez PTA - 06/17/2025 11:58 AM EDT Physical Therapy Treatment Patient Name: Bradley Forrest Today's Date: 06/17/2025 Total Treatment Time: 39 min PT Discharge Recommendations: Home with assistance Equipment Recommended: Rollator Subjective The patient states, I am doing okay. Participants in Care Family/Caregiver Present: Yes Family/Caregiver: Spouse, Other (Specify) (sister and brother) Safety Trainer: Not Applicable Presentation Oxygen: None (Room air) [...] sequencing. Bed Mobility Exam: Rolling/Turning Level of Wilbarger: Minimum assist (75% patient effort) Physical/Nonphysical Assist: Verbal Cues, Set-up required Bed Mobility Exam: Scooting/Bridging Level of Wilbarger: Minimum assist (75% patient's effort) (to scoot to edge of bed with cues to adhere to sternal precautions) Physical/Nonphysical Assist: Verbal Cues, Set-up required Bed Mobility Exam: Supine to Sit Level of Wilbarger: Minimum assist (75% patient's effort) Physical/Nonphysical Assist: Verbal Cues, Set-up required, Additional assist utilized for safety Bed Mobility Exam: Sit to Supine Level of Wilbarger: Minimum assist (75% patient's effort) Physical/Nonphysical Assist: Verbal Cues, Set-up required, Additional assist utilized for safety Transfers Transfer Intervention: Verbal cues provided for correct bilateral hand and foot placement during sit to stand transfers. Transfer Interventions: The patient stood at the sink for hygiene approximately 8-10 minutes with CGA of 1 person. 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 Level of Wilbarger Adaptive Equipment Utilized Comments Feeding Grooming SBA Standing sinkside stood times 8 minutes in bathroom. Bathing Upper Body Dressing Lower Body Dressing Sock Level of Assistance: Moderate assistance, Minimal verbal cues Toileting SBA Toilet IADLs Health Management Community Re-Entry BALANCE Postural Appearance INTERVENTIONS Level of Wilbarger Balance Support Comments Static Sit Standby assist [...] weight shifting to promote safety. Level of Wilbarger Physical/Non-physical Assist Adaptive Equipment Utilized Rolling/ Turning [...] Plan Anticoagulation Plan Warfarin Pharmacist Managed?: No [facility] Warfarin Dosing Protocol Followed?: No Bridging Agent in Conjunction With Warfarin? : Yes Ordered Agents: Enoxaparin Bridging Agent Dose: 70mg BID INR Monitoring Frequency: Monitor INR daily Patient Education : Complete and documented Warfarin dosing and adjustment per CT surgery provider. Transitions of Care Outpatient provider managing warfarin after [facility] discharge: TBD - possibly clinic Recommended date for outpatient INR assessment: TBD - of note, enoxparin copay $0 for 7 day supply Will continue to follow patient's clinical progress daily. Maria Esther [place] PharmD, ARLEEN, BCCCP, [facility] Critical Care Pharmacist - Cardiothoracic Surgery Contact via secure chat * Maria Esther Houston PharmD - 06/17/2025 9:21 AM EDT Images from the original note were not included. Your Health Checklist: Taking Warfarin Safely - Video Follow this checklist to properly and safely take warfarin. To view the video go to this web address: [email or web address] Or, scan this QR code with your [...] the video go to this web address: [email or web address] Or, scan this QR code with your smart phone ?? [employer] * Maria Esther Houston PharmD - 06/17/2025 9:21 AM EDT Images from the original note were not included. Warfarin: Your INR Goal - Video Understand what the INR test measures, and what your healthy INR level should be. To view the video go to this web address: [email or web address] Or, scan this QR code with your [...] the video go to this web address: [email or web address] Or, scan this QR code with your [...] Certain other vegetables and fruits, including asparagus, [place] sprouts, and kiwifruit ? Certain soy products, such as natto (a traditional Polish dish of fermented soybeans) Some vegetable oils [...] reduced-fat cheese, served with a whole grain Spanish muffin ? A grilled chicken sandwich on whole grain bread with raw spinach*, tomato slices, and mustard ? Oven-roasted fish served with steamed broccoli* and medley of whole grain pasta, carrots, onions,and mushrooms * Foods higher in vitamin K Last Reviewed Date: 2025 00:00:00 ?? 7665-0165 [employer]. All rights reserved. This information is not [...] the video go to this web address: [email or web address] Or, scan this QR code with your smart phone ?? [employer] * Maria Esther Houston PharmD - 06/17/2025 9:21 AM EDT Images from the original note were not included. [id number] Warfarin IMPORTANT WARNING: Warfarin may cause severe [...] doctor or pharmacist will give you the transmission builder's patient information sheet (Medication Guide) when you begin treatment with warfarin and each time you refill your prescription. Read the information carefully and ask your doctor or pharmacist if you have any questions. You can also visit the Food and Drug Administration (FDA) website (https://www.fda.gov/downloads/Drugs/DrugSafety/yih930770.pdf) or the transmission builder's website to obtain the Medication Guide. Talk [...] amounts of vitamin K-containing food on a fquj-ja-uapu basis. Do not eat large amounts of [...] of all of the prescription and nonprescription (cwdr-cjw-qzyhfyk) medicines, vitamins, minerals, and dietary supplements you [...] or pharmacist about specific clinical use. The [employer] represents that the information provided hereunder was formulated with a reasonable standard of care, and in conformity with professional standards in the field. The [employer] makes no representations or warranties, express or implied, including, but not limited to, any implied warranty of merchantability and/or fitness for a particular purpose, with respect to such information and specifically disclaims all such warranties. Users are advised that decisions regarding drug therapy are complex medical decisions requiring the independent, informed decision of an appropriate health pharmacy care coordinator, and the information is provided for informational purposes only. The entire monograph for a drug should be reviewed for a thorough understanding of the drug's actions, uses and side effects. The [employer] does not endorse or recommend the use of any drug.The information is not a substitute for medical care. AHFS?? Patient Medication Information?. ?? Copyright, 2023. The [employer] of Health-System Pharmacists??, [address], [address], [place], [place]. All Rights Reserved. Duplication for commercial use must be authorized by [facility]. Selected Revisions: February 13, 2017. AHFS?? [...] Ongoing, Progressing Intervention: Promote Activity and Functional [place] Flowsheets (Taken 06/17/2025108) Activity Assistance Provided: assistance, 1 person Self-Care Promotion: independence encouraged Problem: Self-Care Deficit Goal: Improved Ability to Complete Activities of Daily Living Outcome: Ongoing, Progressing Intervention: Promote Activity and Functional [place] Flowsheets (Taken 06/17/2025108) Activity Assistance Provided: assistance, [...] Effective Urinary Elimination 06/16/2025 1526 by Fariba Blanton, HESHAM Outcome: [...] Note Bradley Forrest 69 y.o. male CSN: [id number] Admission: 06/14/2025 5:18 AM Primary Problem: Severe [...] Weaning from mechanically assisted ventilation initiated (CMS/HCC) (Haxucdpc69/20/2025) Arrived intubated and sedated post-op - fast [...] post median sternotomy. Interval removal of the Pentwater-Ganzcatheter, right IJ sheath remains in place with tip in the mid to distal SVC. No pneumothorax or pleural effusions. Ongoing interstitial edema. 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 Safety Trainer (if applicable) OBJECTIVE & INTERVENTIONS PAIN Pain [...] ACTIVITY Treatment Minutes 24 TRANSFERS Level of [place] Physical/Non- physical Assist Adaptive Equipment Utilized Sit to Stand Contact guard Verbal Cues, Additional assist utilized for safety, 1 person + 1 person to manage equipment (verbal cuing for sternal precautions) Stand to sit Contact guard Verbal Cues, 1 person + 1 person to manage equipment Interventions BALANCE Postural Appearance Posture: Rounded shoulders Level of Wilbar[place] Balance Support Interventions Static Sit Standby assist Feet supported Dynamic Sit Contact guard Feet supported Static Stand Standby assist Right upper extremity support, Left upper extremity support Pt with mild dizziness when coming to stand from sitting which subsided with roughly 30 seconds of static standing Dynamic Stand Standby assist Right upper extremity support, Left upper extremity support AMBULATION Level of [place] Distance Adaptive Equipment Utilized Ambulation Standby assist, [...] Plan Anticoagulation Plan Warfarin Pharmacist Managed?: No [facility] Warfarin Dosing Protocol Followed?: No Reason for Protocol Departure: CT Surgery Bridging Agent in Conjunction With Warfarin? : Yes Ordered Agents: Enoxaparin Bridging Agent Dose: Enoxaparin 70mg bid to start 1016 pm INR Monitoring Frequency: Monitor INR daily Patient Education : Incomplete Warfarin dosing and adjustment per CT surgery provider. Transitions of Care Outpatient provider managing warfarin after [facility] discharge: TBD Recommended date for outpatient INR assessment: TBD Will continue to follow patient's clinical progress daily. Sy Fernández PharmD PGY-2 Cardiology Media Services Coordinator Available via Secure Chat * Progress Notes [...] Ongoing, Progressing Intervention: Promote Activity and Functional [place] Flowsheets Taken 06/15/20250 by Bony Thomas RN [...] Ongoing, Progressing Intervention: Promote Activity and Functional [place] Flowsheets Taken 06/15/20251699 by Bony Thomas RN Activity Assistance Provided: assistance, stand-by Taken 06/14/20252154 by Svetlana Reilly RN Self-Care Promotion: independence encouraged * Consults - Nat Singletary RD - 06/15/2025 2:23 PM EDTAssociated Order(s): IP CONSULT TO NUTRITION SERVICES Adult Nutrition Evaluation Note Bradley Forrest 69 y.o. 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[employer]) GI Symptoms: Nausea, Vomiting Edema: Generalized Allergies: [...] 30.07 Weight Evaluation: Obese-Class 1 (BMI 30-34.9) [place] Body Weight (kg): 67.3 Percent [place] Body Weight: 130 Adjusted Body Weight (kg): 72.4 Estimated Needs: Kcal/ K-28 Kcal Provided: Metabolic Cart Study Results: Current Nutrition Intake: Diet Order: Adult Diet Diet Texture: Clear liquid Adult Carbohydrate Restriction: Consistent CHO 2 ([id number] Venkat, 80 g/meal) Fat Restriction: Cardiac Percent Meals Eaten (%): establishing Diet Experience and Nutrition History: Diet Education Provided: Will monitor Pertinent home medications: Protestant needs: Nutrition Focused Physical Exam: Physical exam performed on (date): 06/15 Temples (muscles): None Clavicle (muscle): None Shoulder (muscle): None Orbital (fat): None Triceps (fat): None Energy Intake: reported adequate [employer] Weight Loss: denies Assessment of Malnutrition: Malnutrition [...] Note Bradley Forrest 69 y.o. male CSN: [id number] Admission: 06/14/2025 5:18 AM Primary Problem: Severe aortic regurgitation Rn Oncology reviewed chart and spoke with the patient at bedside to complete this Initial Case Management Assessment. PCP: Kamran Singh MD Emergency Contact: Extended Emergency Contact Information Primary Emergency Contact: Naheed Forrest Address: [address] [place] Relation: Spouse Insurance: Primary Visit Coverage Payer Plan Sponsor Code Group Number Group Name MARY HERNANDEZ [facility] [id number] Primary Visit Coverage Subscriber Subscriber ID Subscriber Name Subscriber [facility] Subscriber Address [id number] Forrest,Bradley [id number] [address] [facility] [id number] Secondary Visit Coverage Payer Plan Sponsor Code Group Number Group Name MEDICARE MEDICARE A & B Secondary Visit Coverage Subscriber Subscriber ID Subscriber Name Subscriber [facility] Subscriber Address [id number] Jeet Forrestime [id number] [place] [address] [place] [id number] Patient information: Primary Caregiver: Self Support System: Immediate family Daily Living Activities: Functional Status: Independent Living Arrangements: Spouse/Significant other Type of Residence: Private residence, Single Level [address] [place] [address] Current DME: Equipment Currently Used at Home: [...] DME Provider: n/a Living Will/Advance Directive/Power of Robot Technician /Guardian: Unable to assess: No Have you [...] prior HH/O2/HD/Abx. PCP is Kamran Singh. Has [facility] insurance and uses [email or web address]. Family to transport and assist as needed at discharge. No current SW/CM needs identified. Will continue to follow and assist. Sangeeta Tonwsend RN * Progress Notes - Sy Fernández, [...] Plan Anticoagulation Plan Warfarin Pharmacist Managed?: No [facility] Warfarin Dosing Protocol Followed?: No Reason for Protocol Departure: CT Surgery Bridging Agent in Conjunction With Warfarin? : No INR Monitoring Frequency: Monitor INR daily Patient Education : Incomplete Warfarin dosing and adjustment per CT surgery provider. Transitions of Care Outpatient provider managing warfarin after [facility] discharge: TBD Recommended date for outpatient INR assessment: TBD Will continue to follow patient's clinical progress daily. Frank BrothersD PGY-2 Cardiology Media Services Coordinator Available via Secure Chat * Assessment & [...] Weaning from mechanically assisted ventilation initiated (CMS/HCC) (Kgkiqihl70/20/2025) Arrived intubated and sedated post-op - fast [...] Weaning from mechanically assisted ventilation initiated (CMS/HCC) (Wjztlqka40/20/2025) Arrived intubated and sedated post-op - fast [...] 06/15/2025 Weaning from mechanically assisted ventilation initiated ([facility]) 06/14/2025 Diabetes 05/05/2025 Benign prostatic hyperplasia 05/05/2025 CAD (coronary artery disease) 04/14/2025 History of coronary angioplasty with insertion of stent 04/14/2025 Ascending aortic aneurysm ([facility]) 04/14/2025 Aortic valve regurgitation 04/14/2025 [...] 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) Level of Mobility: Ambulatory- community Mobility [place]: Independent gait without device History of Falls: [...] Mobility Exam: Sit to Supine Level of [place]: Maximum assist (25% patient's effort) Physical/Nonphysical Assist: Verbal Cues, Maximal cues, Additional assist utilized for safety Transfers Transfer Exam: Sit to stand Level of [place]: Moderate assist (50% patient's effort) Physical/Nonphysical Assist: Verbal Cues, Moderate cues, Additional assist utilized for safety Assistive Device: Rollator Transfer Exam: Stand to Sit Level of [place]: Minimum assist (75% patient's effort) Physical/Nonphysical Assist: [...] 3-5 steps with a railing?: A little [facility] 6-Clicks Mobility Assessment Total : 16 No [...] 06/15/2025 Weaning from mechanically assisted ventilation initiated ([facility]) 06/14/2025 Diabetes 05/05/2025 Benign prostatic hyperplasia 05/05/2025 CAD (coronary artery disease) 04/14/2025 History of coronary angioplasty with insertion of stent 04/14/2025 Ascending aortic aneurysm ([facility]) 04/14/2025 Aortic valve regurgitation 04/14/2025 [...] 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) Level of Mobility: Ambulatory- community Mobility [place]: Independent gait without device History of Falls: [...] Mobility Exam: Sit to Supine Level of [place]: Maximum assist (25% patient's effort) Physical/Nonphysical Assist: Verbal Cues, Maximal cues, Additional assist utilized for safety Transfers Transfer Exam: Sit to stand Level of [place]: Moderate assist (50% patient's effort) Physical/Nonphysical Assist: Verbal Cues, Moderate cues, Additional assist utilized for safety Assistive Device: Rollator Transfer Exam: Stand to Sit Level of [place]: Minimum assist (75% patient's effort) Physical/Nonphysical Assist: [...] continued education to improve carryover. Standardized Assessments [facility] 6-Click Daily Activities Help from Other: Don/Doff Regular Lower Body Clothings: A lot Help From Other: Bathing: A lot Help From Other: Toileting: A lot Help From Other: Don/Doff Upper Body Clothings: Little Help From Other: Grooming: Little Help From Other: Eating Meals: None [facility] 6 Click - Daily Activities Score: 16 [...] Right 06/14/25 0832 Internal jugular 1 GCS: [place] Coma Scale Score: 15 Review of Systems [...] of NG tube. Right internal jugular approach Pentwater-Shira catheter and mediastinal drain in unchanged position. [...] Problem(s): Weaning from mechanically assisted ventilation initiated ([facility]) (Tywnzuvs74/20/2025) Arrived intubated and sedated post-op - fast [...] analgesia prior to leaving the OR. [facility] services were consulted for management [...] pressure support 04/05 Edited by: Balta Washington, DELIVERY TECH, DNP at 06/14/2025 2253 Lines/Drains/Tubes: Patient Lines/Drains/Airways [...] Ongoing, Progressing Intervention: Promote Activity and Functional [place] Flowsheets (Taken 06/14/20252154) Activity Assistance Provided: assistance, [...] Problem(s): Weaning from mechanically assisted ventilation initiated ([facility]) (Vtyoaqpx25/20/2025) Arrived intubated and sedated post-op - fast [...] analgesia prior to leaving the OR. [facility] services were consulted for management [...] 06/14/25 1327 Mediastinal less than 1 NG/OG Western Sump Orogastric 18 Fr Center mouth 06/14/25 [...] 2 tablets by mouth every morning. Under [place] law, monthly prescriptions (30 days) can be refilled at 25 days and three-month prescriptions (90 days) at 80 days. Please contact the insurance company with questions if refills are denied. (Patient taking differently: Take 2 tablets by mouth every 4 hours as needed. Under [place] law, monthly prescriptions (30 days) can be [...] Saint Jose mechanical prosthesis. Date: 06/14/25 Location: [facility] Name: Bradley Forrest, : 1955, Diagnoses: Pre-op Diagnosis Severe aortic regurgitation Post-op Diagnosis Severe aortic regurgitation Coronary artery disease due to calcified coronary lesion History of coronary angioplasty with insertion of stent Left ventricular enlargement Procedure(s): Median sternotomy, aortic valve replacement using a 25 mm Saint Jose mechanical prosthesis. Attending Surgeon(s): * Phillip Clark - Primary Inside Contractor Sales(s): * Turner Pablo MD - Fellow Anesthesia: General ASA: IV Blood Administration: Blood Product Administration History None Estimated Blood Loss: 150 mL Drains: Chest Tube Mediastinal 36 Fr (Active) Function -20 cm H2O 06/14/25 1600 Chest Tube Air Leak No 06/14/25 1600 Patency Intervention Tip/tilt 06/14/25 1600 Drainage Description Dark red 06/14/25 1600 NG/OG Western Sump Orogastric 18 Fr Center mouth (Active) Urethral Catheter Temperature probe 16 Fr. (Active) Implants Type Name Action Serial No. GRAFT PTCH [id number] FELT - [id number] Implanted VALVE ATRIAL 25MM ROTATABL CUF STD PTFE - [id number] - [id number] Implanted [id number] Specimen: Specimens ID Source Frozen? 1 Heart [...] stenting of his coronaries. In addition his alteration specialist, Jd Duvall, had done an echocardiogram which [...] was induced, monitoring lines were placed, a Pentwater-Shira catheter was floated into position and a transesophageal echo probe was positioned by Anesthesia. The patient was then centered on the operating room table. Pressure points were padded. Patient was then prepped and draped in a sterile manner from chin to ankles, a time-out was called and the patient was identified, the proposed procedure was announced and confirmed by all in the room. Antibiotics [...] Prolene and a tack seal. One 36 Danish chest tube was placed. Chest tubes and pacing wires were secured to the anterior abdominal wall. The sternum was reapproximated with #7 [id number] stainless steel wires, the fasciawas closed with [...] 2 tablets by mouth every morning. Under [place] law, monthly prescriptions (30 days) can be refilled at 25 days and three-month prescriptions (90 days) at 80 days. Please contact the insurance company with questions if refills are denied. Patient taking differently: Take 2 tablets by mouth every 4 hours as needed. Under [place] law, monthly prescriptions (30 days) can be [...] Description 07/07/2025 2:40 PM EST Office Visit [facility] [address] [place] [address] Phillip Clark MD [address] [place] [address] Pending Results Name Type Priority Associated Diagnoses [...] PANEL, PLASMA Routine 06/16/2025 5:35 PM EDT [facility] CRIT[facility], E/M 30-74 MINUTES Routine 06/16/2025 [...] PEP THERAPY Routine 06/15/2025 12:00 PM EDT SD CRITICAL CARE, E/M 30-74 MINUTES Routine 06/15/2025 [...] 1 VIEW Routine 06/15/2025 2:53 AM EDT SD CRITICAL CARE, ADDL 30 MIN Routine 06/15/2025 12:21 AM EDT Other secondary hypertension SD CRITICAL CARE, ADDL 30 MIN Routine 06/15/2025 [...] PANEL, ARTERIAL Routine 06/14/2025 6:47 PM EDT SD CRITICAL CARE, E/M 30-74 MINUTES Routine 06/14/2025 [...] UNSOLICITED RESULTS Routine 06/14/2025 8:13 AM EDT SD -AORT GRF W/CARD BYP F/AORTIC DISSECTION 06/14/2025 [...] - 99 mg/dL 06/20/2025 2:47 AM EDT [facility] BUN, Plasma 22 8 - 23 mg/dL 06/20/2025 2:47 AM EDT [facility] Creatinine, Plasma 0.85 0.70 - 1.20 mg/dL 06/20/2025 2:47 AM EDT [facility] BUN/Creatinine Ratio 26 06/20/2025 2:47 AM EDT [facility] Sodium, Plasma 131(L) 136 - 145 mmol/L 06/20/2025 2:47 AM EDT [facility] Potassium, Plasma 4.0 3.6 - 4.9 mmol/L 06/20/2025 2:47 AM EDT [facility] Chloride, Plasma 102 97 - 107 mmol/L 06/20/2025 2:47 AM EDT [facility] CO2, Plasma 24 22 - 29 mmol/L 06/20/2025 2:47 AM EDT [facility] Anion Gap 5(L) 6 - 16 mmol/L 06/20/2025 2:47 AM EDT [facility] Total Calcium, Plasma 7.9(L) 8.9 - 10.2 mg/dL 06/20/2025 2:47 AM EDT [facility] eGFRcr 94.1 mL/min/1.7 3m*2 06/20/2025 2:47 AM EDT [facility] Comment:Reported eGFRcr in m L/min/1.73m2 is based the CKD-EPI 2020 equation that does not use a race coefficient. Blood Venous blood specimen / Unknown Venipuncture / Unknown 06/20/2025 1:52 AM EDT 06/20/2025 1:59 AM EDT Phillip Clark MD LAB BLOOD ORDERABLES Final R esult Performing Organization Address City/[facility]/ZIP Co de Phone Number [facility] [address] [place] [address] * Phosphorus (06/20/2025 1:52 AM EDT) Phosphorus, Plasma 2.8 2.5 - 4.5 mg/dL 06/20/2025 2:23 AM EDT [facility] Blood Venous blood specimen / Unknown Venipuncture / Unknown 06/20/2025 1:52 AM EDT 06/20/2025 1:59 AM EDT Phillip Clark MD LAB BLOOD ORDERABLES Final R esult Performing Organization Address [facility] Co de Phone Number [facility] [address] [place] [address] * (ABNORMAL) Protime-INR (06/20/2025 1:52 AM EDT) Prothrombin Time 30.4(H) 12.0 - 14.3 sec LAB COAGULATION METHOD 06/20/2025 2:29 AM EDT [facility] INR 2.9(H) 0.9 - 1.1 LAB COAGULATION METHOD 06/20/2025 2:29 AM EDT [facility] Blood Venous blood specimen / Unknown Venipuncture / Unknown 06/20/2025 1:52 AM EDT 06/20/2025 1:59 AM EDT Narrative [facility] - 06/20/2025 2:29 AM EDT OPTIMAL INR RANGES FOR PATIENT ON ORAL ANTICOAGULANT THERAPY Prevention of venous thromboembolism INR 2.0 to 3.0 In patients with heart disease: Atrial fibrillation INR 2.0 to 3.0 Valvular heart disease INR 2.0 to 3.0 Tissue heart valves INR 2.0 to 3.0 Mechanical prosthetic valves INR 2.5 to 3.5 Prevention of recurrent OR INR 2.5 to 3.5 us Phillip Clark MD LAB BLOOD ORDERABLES Final R esult [facility] [address] [place] [address] * Magnesium (06/20/2025 1:52 AM EDT) Pathologist [facility] Magnesium, Plasma 2.2 1.9 - 2.4 mg/dL 06/20/2025 2:23 AM EDT [facility] Blood Venous blood specimen / Unknown Venipuncture / Unknown 06/20/2025 1:52 AM EDT 06/20/2025 1:59 AM EDT us Phillip Clark MD LAB BLOOD ORDERABLES Final R esult Performing Organization Address City/[facility]/ZIP Co de Phone Number [facility] [address] [place] [address] * (ABNORMAL) CBC (06/20/2025 1:52 AM EDT) [facility] [address] WBC Count 6.95 3.70 - 10.30 10*3/uL LAB HEMATOLOGY METHOD 06/20/2025 2:07 AM EDT [facility] RBC Count 3.73(L) 4.60 - 6.10 10*6/uL LAB HEMATOLOGY METHOD 06/20/2025 2:07 AM EDT [facility] HGB 10.4(L) 13.7 - 17.5 g/dL LAB HEMATOLOGY METHOD 06/20/2025 2:07 AM EDT [facility] HCT 31.9(L) 40.0 - 51.0 % LAB HEMATOLOGY METHOD 06/20/2025 2:07 AM EDT [facility] Platelet Count 187 155 - 369 10*3/uL LAB HEMATOLOGY METHOD 06/20/2025 2:07 AM EDT [facility] MCV 86 79 - 98 fL LAB HEMATOLOGY METHOD 06/20/2025 2:07 AM EDT [facility] MCH 27.9 26.0 - 32.0 pg LAB HEMATOLOGY METHOD 06/20/2025 2:07 AM EDT [facility] MCHC 32.6 30.7 - 35.5 g/dL LAB HEMATOLOGY METHOD 06/20/2025 2:07 AM EDT [facility] RDW 14.8(H) 11.5 - 14.5 % LAB HEMATOLOGY METHOD 06/20/2025 2:07 AM EDT [facility] MPV 10.2 8.8 - 12.5 fL LAB HEMATOLOGY METHOD 06/20/2025 2:07 AM EDT [facility] nRBC 0.0 <=0.0 per 100 WBCs LAB HEMATOLOGY METHOD 06/20/2025 2:07 AM EDT [facility] Blood Venous blood specimen / Unknown Venipuncture / Unknown 06/20/2025 1:52 AM EDT 06/20/2025 1:59 AM EDT us Phillip Clark MD LAB BLOOD ORDERABLES Final R esult [facility] [address] [place] [address] * PERIPHERAL IV (SMART[employer] LINK) (06/20/2025 1:47 [...] ECG Atrial Rate 85 BPM MUSE ECG SD Interval 176 ms MUSE ECG QRSD Interval 110 ms MUSE ECG QT Interval 402 ms MUSE ECG QTC Interval 478 ms MUSE ECG P Snover 43 degrees MUSE ECG R Snover -30 degrees MUSE ECG T Wave Snover 36 degrees MUSE ECG Diagnosis Poor data quality, interpretation may be adversely affected MUSE ECG Diagnosis Sinus rhythm with premature supraventricular complexes and with occasional premature ventricular complexes MUSE ECG Diagnosis Left axis deviation MUSE ECG Diagnosis Poor R-wave progression MUSE ECG Diagnosis Abnormal ECG MUSE ECG Diagnosis Recommend repeat ECG MUSE ECG Diagnosis MUSE ECG Diagnosis Confirmed by Aman Coe ([id number]) on 06/19/2025 1:33:10 PM MUSE ECG 06/19/2025 12:4 9 PM EDT 06/19/2025 1:33 PM EDT us Barbara MARIE ECG ORDERABLES Final Resul t MUSE ECG * (ABNORMAL) Basic metabolic panel (06/19/2025 2:38 AM EDT) Glucose, Plasma 102(H) 74 - 99 mg/dL 06/19/2025 4:10 AM EDT [facility] BUN, Plasma 25(H) 8 - 23 mg/dL 06/19/2025 4:10 AM EDT [facility] Creatinine, Plasma 1.02 0.70 - 1.20 mg/dL 06/19/2025 4:10 AM EDT [facility] BUN/Creatinine Ratio 25 06/19/2025 4:10 AM EDT [facility] Sodium, Plasma 134(L) 136 - 145 mmol/L 06/19/2025 4:10 AM EDT [facility] Potassium, Plasma 4.6 3.6 - 4.9 mmol/L 06/19/2025 4:10 AM EDT [facility] Comment:Hemolyzed - Potassiu m may be falsely elevated by approximately 0.4-0.7 mmol/L. Chloride, Plasma 102 97 - 107 mmol/L 06/19/2025 4:10 AM EDT [facility] CO2, Plasma 23 22 - 29 mmol/L 06/19/2025 4:10 AM EDT [facility] Anion Gap 9 6 - 16 mmol/L 06/19/2025 4:10 AM EDT [facility] Total Calcium, Plasma 8.4(L) 8.9 - 10.2 mg/dL 06/19/2025 4:10 AM EDT [facility] eGFRcr 79.6 mL/min/1.7 3m*2 06/19/2025 4:10 AM EDT [facility] Comment:Reported eGFRcr in m L/min/1.73m2 is based the CKD-EPI 2020 equation that does not use a race coefficient. Blood Venous blood specimen / Unknown Venipuncture / Unknown 06/19/2025 2:38 AM EDT 06/19/2025 2:54 AM EDT Phillip Clark MD LAB BLOOD ORDERABLES Final R esult Performing Organization Address City/[facility]/ZIP Co de Phone Number [facility] [address] [place] [address] * Phosphorus (06/19/2025 2:38 AM EDT) Phosphorus, Plasma 3.6 2.5 - 4.5 mg/dL 06/19/2025 4:10 AM EDT [facility] Blood Venous blood specimen / Unknown Venipuncture / Unknown 06/19/2025 2:38 AM EDT 06/19/2025 2:54 AM EDT us Phillip Clark MD LAB BLOOD ORDERABLES Final R esult Performing Organization Address City/[facility]/ZIP Co de Phone Number [facility] [address] [place] [address] * (ABNORMAL) Protime-INR (06/19/2025 2:38 AM EDT) Prothrombin Time 26.3(H) 12.0 - 14.3 sec LAB COAGULATION METHOD 06/19/2025 3:09 AM EDT [facility] INR 2.4(H) 0.9 - 1.1 LAB COAGULATION METHOD 06/19/2025 3:09 AM EDT [facility] Blood Venous blood specimen / Unknown Venipuncture / Unknown 06/19/2025 2:38 AM EDT 06/19/2025 2:54 AM EDT Narrative [facility] - 06/19/2025 3:09 AM EDT OPTIMAL INR RANGES FOR PATIENT ON ORAL ANTICOAGULANT THERAPY Prevention of venous thromboembolism INR 2.0 to 3.0 In patients with heart disease: Atrial fibrillation INR 2.0 to 3.0 Valvular heart disease INR 2.0 to 3.0 Tissue heart valves INR 2.0 to 3.0 Mechanical prosthetic valves INR 2.5 to 3.5 Prevention of recurrent OR INR 2.5 to 3.5 Phillip Clark MD LAB BLOOD ORDERABLES Final R esult Performing Organization Address City/[facility]/ZIP Co de Phone Number [facility] [address] [place] [address] * Magnesium (06/19/2025 2:38 AM EDT) Pathologist [facility] Magnesium, Plasma 2.4 1.9 - 2.4 mg/dL 06/19/2025 4:10 AM EDT [facility] Blood Venous blood specimen / Unknown Venipuncture / Unknown 06/19/2025 2:38 AM EDT 06/19/2025 2:54 AM EDT Phillip Clark MD LAB BLOOD ORDERABLES Final R esult Performing Organization Address City/[facility] Co de Phone Number [facility] [address] [place] [address] * (ABNORMAL) CBC (06/19/2025 2:38 AM EDT) WBC Count 6.94 3.70 - 10.30 10*3/uL LAB HEMATOLOGY METHOD 06/19/2025 3:17 AM EDT [facility] RBC Count 4.12(L) 4.60 - 6.10 10*6/uL LAB HEMATOLOGY METHOD 06/19/2025 3:17 AM EDT [facility] HGB 11.5(L) 13.7 - 17.5 g/dL LAB HEMATOLOGY METHOD 06/19/2025 3:17 AM EDT [facility] HCT 35.7(L) 40.0 - 51.0 % LAB HEMATOLOGY METHOD 06/19/2025 3:17 AM EDT [facility] Platelet Count 165 155 - 369 10*3/uL LAB HEMATOLOGY METHOD 06/19/2025 3:17 AM EDT [facility] MCV 87 79 - 98 fL LAB HEMATOLOGY METHOD 06/19/2025 3:17 AM EDT [facility] MCH 27.9 26.0 - 32.0 pg LAB HEMATOLOGY METHOD 06/19/2025 3:17 AM EDT [facility] MCHC 32.2 30.7 - 35.5 g/dL LAB HEMATOLOGY METHOD 06/19/2025 3:17 AM EDT [facility] RDW 14.8(H) 11.5 - 14.5 % LAB HEMATOLOGY METHOD 06/19/2025 3:17 AM EDT [facility] MPV 10.6 8.8 - 12.5 fL LAB HEMATOLOGY METHOD 06/19/2025 3:17 AM EDT [facility] nRBC 0.0 <=0.0 per 100 WBCs LAB HEMATOLOGY METHOD 06/19/2025 3:17 AM EDT [facility] Blood Venous blood specimen / Unknown Venipuncture / Unknown 06/19/2025 2:38 AM EDT 06/19/2025 2:54 AM EDT us Phillip Clark MD LAB BLOOD ORDERABLES Final R esult [facility] [address] [place] [address] * XR Chest 1 View (06/19/2025 1:50 [...] - 99 mg/dL 06/18/2025 2:17 AM EDT [facility] BUN, Plasma 18 8 - 23 mg/dL 06/18/2025 2:17 AM EDT [facility] Creatinine, Plasma 0.82 0.70 - 1.20 mg/dL 06/18/2025 2:17 AM EDT [facility] BUN/Creatinine Ratio 22 06/18/2025 2:17 AM EDT [facility] Sodium, Plasma 134(L) 136 - 145 mmol/L 06/18/2025 2:17 AM EDT [facility] Potassium, Plasma 3.7 3.6 - 4.9 mmol/L 06/18/2025 2:17 AM EDT [facility] Chloride, Plasma 100 97 - 107 mmol/L 06/18/2025 2:17 AM EDT [facility] CO2, Plasma 26 22 - 29 mmol/L 06/18/2025 2:17 AM EDT [facility] Anion Gap 8 6 - 16 mmol/L 06/18/2025 2:17 AM EDT [facility] Total Calcium, Plasma 8.1(L) 8.9 - 10.2 mg/dL 06/18/2025 2:17 AM EDT [facility] eGFRcr 95.1 mL/min/1.7 3m*2 06/18/2025 2:17 AM EDT [facility] Comment:Reported eGFRcr in m L/min/1.73m2 is based the CKD-EPI 2020 equation that does not use a race coefficient. Blood Blood sample taken from central line / Unknown Venipuncture / Unknown 06/18/2025 1:43 AM EDT 06/18/2025 1:48 AM EDT Phillip Clark MD LAB BLOOD ORDERABLES Final R esult Performing Organization Address City/State/[facility] Co de Phone Number [facility] [address] [place] [address] * Phosphorus (06/18/2025 1:43 AM EDT) Phosphorus, Plasma 2.6 2.5 - 4.5 mg/dL 06/18/2025 2:17 AM EDT [facility] Blood Blood sample taken from central line / Unknown Venipuncture / Unknown 06/18/2025 1:43 AM EDT 06/18/2025 1:48 AM EDT Phillip Clark MD LAB BLOOD ORDERABLES Final R esult Performing Organization Address [facility] Co de Phone Number [facility] [address] [place] [address] * (ABNORMAL) Protime-INR (06/18/2025 1:43 AM EDT) Prothrombin Time 25.2(H) 12.0 - 14.3 sec LAB COAGULATION METHOD 06/18/2025 2:07 AM EDT [facility] INR 2.3(H) 0.9 - 1.1 LAB COAGULATION METHOD 06/18/2025 2:07 AM EDT [facility] Blood Blood sample taken from central line / Unknown Venipuncture / Unknown 06/18/2025 1:43 AM EDT 06/18/2025 1:48 AM EDT Narrative [facility] - 06/18/2025 2:07 AM EDT OPTIMAL INR RANGES FOR PATIENT ON ORAL ANTICOAGULANT THERAPY Prevention of venous thromboembolism INR 2.0 to 3.0 In patients with heart disease: Atrial fibrillation INR 2.0 to 3.0 Valvular heart disease INR 2.0 to 3.0 Tissue heart valves INR 2.0 to 3.0 Mechanical prosthetic valves INR 2.5 to 3.5 Prevention of recurrent OR INR 2.5 to 3.5 us Phillip Clark MD LAB BLOOD ORDERABLES Final R esult Performing Organization Address [facility] Co de Phone Number [facility] [address] [place] [address] * Magnesium (06/18/2025 1:43 AM EDT) Magnesium, Plasma 2.3 1.9 - 2.4 mg/dL 06/18/2025 2:17 AM EDT [facility] Blood Blood sample taken from central line / Unknown Venipuncture / Unknown 06/18/2025 1:43 AM EDT 06/18/2025 1:48 AM EDT us Phillip Clark MD LAB BLOOD ORDERABLES Final R esult [facility] [address] [place] [address] * (ABNORMAL) CBC (06/18/2025 1:43 AM EDT) Pathologist [facility] WBC Count 8.51 3.70 - 10.30 10*3/uL LAB HEMATOLOGY METHOD 06/18/2025 1:54 AM EDT [facility] RBC Count 3.67(L) 4.60 - 6.10 10*6/uL LAB HEMATOLOGY METHOD 06/18/2025 1:54 AM EDT [facility] HGB 10.6(L) 13.7 - 17.5 g/dL LAB HEMATOLOGY METHOD 06/18/2025 1:54 AM EDT [facility] HCT 31.2(L) 40.0 - 51.0 % LAB HEMATOLOGY METHOD 06/18/2025 1:54 AM EDT [facility] Platelet Count 121(L) 155 - 369 10*3/uL LAB HEMATOLOGY METHOD 06/18/2025 1:54 AM EDT [facility] MCV 85 79 - 98 fL LAB HEMATOLOGY METHOD 06/18/2025 1:54 AM EDT [facility] MCH 28.9 26.0 - 32.0 pg LAB HEMATOLOGY METHOD 06/18/2025 1:54 AM EDT [facility] MCHC 34.0 30.7 - 35.5 g/dL LAB HEMATOLOGY METHOD 06/18/2025 1:54 AM EDT [facility] RDW 14.7(H) 11.5 - 14.5 % LAB HEMATOLOGY METHOD 06/18/2025 1:54 AM EDT [facility] MPV 10.4 8.8 - 12.5 fL LAB HEMATOLOGY METHOD 06/18/2025 1:54 AM EDT [facility] nRBC 0.0 <=0.0 per 100 WBCs LAB HEMATOLOGY METHOD 06/18/2025 1:54 AM EDT [facility] Blood Blood sample taken from central line / Unknown Venipuncture / Unknown 06/18/2025 1:43 AM EDT 06/18/2025 1:48 AM EDT us Phillip Clark MD LAB BLOOD ORDERABLES Final R esult [facility] [address] [place] [address] * XR Chest 1 View (06/17/2025 3:14 [...] - 99 mg/dL 06/17/2025 12:54 AM EDT [facility] BUN, Plasma 15 8 - 23 mg/dL 06/17/2025 12:54 AM EDT [facility] Creatinine, Plasma 0.81 0.70 - 1.20 mg/dL 06/17/2025 12:54 AM EDT [facility] BUN/Creatinine Ratio 19 06/17/2025 12:54 AM EDT [facility] Sodium, Plasma 133(L) 136 - 145 mmol/L 06/17/2025 12:54 AM EDT [facility] Potassium, Plasma 3.9 3.6 - 4.9 mmol/L 06/17/2025 12:54 AM EDT [facility] Chloride, Plasma 98 97 - 107 mmol/L 06/17/2025 12:54 AM EDT [facility] CO2, Plasma 25 22 - 29 mmol/L 06/17/2025 12:54 AM EDT [facility] Anion Gap 10 6 - 16 mmol/L 06/17/2025 12:54 AM EDT [facility] Total Calcium, Plasma 8.1(L) 8.9 - 10.2 mg/dL 06/17/2025 12:54 AM EDT [facility] eGFRcr 95.4 mL/min/1.7 3m*2 06/17/2025 12:54 AM EDT [facility] Comment:Reported eGFRcr in m L/min/1.73m2 is based the CKD-EPI 2020 equation that does not use a race coefficient. Blood Blood sample taken from central line / Unknown Venipuncture / Unknown 06/17/2025 12:17 AM EDT 06/17/2025 12:24 AM EDT Phillip Clark MD LAB BLOOD ORDERABLES Final R esult Performing Organization Address City/[facility] Co de Phone Number [facility] [address] [place] [address] * Phosphorus (06/17/2025 12:17 AM EDT) Phosphorus, Plasma 2.9 2.5 - 4.5 mg/dL 06/17/2025 12:54 AM EDT [facility] Blood Blood sample taken from central line / Unknown Venipuncture / Unknown 06/17/2025 12:17 AM EDT 06/17/2025 12:24 AM EDT Phillip Clark MD LAB BLOOD ORDERABLES Final R esult Performing Organization Address City/[facility] de Phone Number [facility] [address] [place] [address] * (ABNORMAL) Protime-INR (06/17/2025 12:17 AM EDT) Prothrombin Time 18.7(H) 12.0 - 14.3 sec LAB COAGULATION METHOD 06/17/2025 1:16 AM EDT [facility] INR 1.5(H) 0.9 - 1.1 LAB COAGULATION METHOD 06/17/2025 1:16 AM EDT [facility] Blood Blood sample taken from central line / Unknown Venipuncture / Unknown 06/17/2025 12:17 AM EDT 06/17/2025 12:24 AM EDT Narrative [facility] - 06/17/2025 1:16 AM EDT OPTIMAL INR RANGES FOR PATIENT ON ORAL ANTICOAGULANT THERAPY Prevention of venous thromboembolism INR 2.0 to 3.0 In patients with heart disease: Atrial fibrillation INR 2.0 to 3.0 Valvular heart disease INR 2.0 to 3.0 Tissue heart valves INR 2.0 to 3.0 Mechanical prosthetic valves INR 2.5 to 3.5 Prevention of recurrent OR INR 2.5 to 3.5 Phillip Clark MD LAB BLOOD ORDERABLES Final R esult Performing Organization Address City/[facility]/ZIP Co de Phone Number [facility] [address] [place] [address] * Magnesium (06/17/2025 12:17 AM EDT) [facility] [address] Magnesium, Plasma 2.3 1.9 - 2.4 mg/dL 06/17/2025 12:54 AM EDT [facility] Blood Blood sample taken from central line / Unknown Venipuncture / Unknown 06/17/2025 12:17 AM EDT 06/17/2025 12:24 AM EDT us Phillip Clark MD LAB BLOOD ORDERABLES Final R esult Performing Organization Address City/[facility] Co de Phone Number [facility] [address] [place] [address] * (ABNORMAL) CBC (06/17/2025 12:17 AM EDT) [facility] [address] WBC Count 10.83(H) 3.70 - 10.30 10*3/uL LAB HEMATOLOGY METHOD 06/17/2025 12:32 AM EDT [facility] RBC Count 4.08(L) 4.60 - 6.10 10*6/uL LAB HEMATOLOGY METHOD 06/17/2025 12:32 AM EDT [facility] HGB 11.3(L) 13.7 - 17.5 g/dL LAB HEMATOLOGY METHOD 06/17/2025 12:32 AM EDT [facility] HCT 35.0(L) 40.0 - 51.0 % LAB HEMATOLOGY METHOD 06/17/2025 12:32 AM EDT [facility] Platelet Count 116(L) 155 - 369 10*3/uL LAB HEMATOLOGY METHOD 06/17/2025 12:32 AM EDT [facility] MCV 86 79 - 98 fL LAB HEMATOLOGY METHOD 06/17/2025 12:32 AM EDT [facility] MCH 27.7 26.0 - 32.0 pg LAB HEMATOLOGY METHOD 06/17/2025 12:32 AM EDT [facility] MCHC 32.3 30.7 - 35.5 g/dL LAB HEMATOLOGY METHOD 06/17/2025 12:32 AM EDT [facility] RDW 15.1(H) 11.5 - 14.5 % LAB HEMATOLOGY METHOD 06/17/2025 12:32 AM EDT [facility] MPV 10.3 8.8 - 12.5 fL LAB HEMATOLOGY METHOD 06/17/2025 12:32 AM EDT [facility] nRBC 0.0 <=0.0 per 100 WBCs LAB HEMATOLOGY METHOD 06/17/2025 12:32 AM EDT [facility] Blood Blood sample taken from central line / Unknown Venipuncture / Unknown 06/17/2025 12:17 AM EDT 06/17/2025 12:24 AM EDT us Phillip Clark MD LAB BLOOD ORDERABLES Final R esult Performing Organization Address City/[facility]/ZIP Co de Phone Number [facility] [address] [place] [address] * Magnesium (06/16/2025 5:35 PM EDT) Magnesium, Plasma 2.2 1.9 - 2.4 mg/dL 06/16/2025 7:41 PM EDT [facility] Blood Venous blood specimen / Unknown Venipuncture / Unknown 06/16/2025 5:35 PM EDT 06/16/2025 7:12 PM EDT us Phillip Clark MD LAB BLOOD ORDERABLES Final R esult [facility] [address] [place] [address] * (ABNORMAL) Renal function panel (06/16/2025 5:35 PM EDT) Glucose, Plasma 89 74 - 99 mg/dL 06/16/2025 7:41 PM EDT [facility] BUN, Plasma 15 8 - 23 mg/dL 06/16/2025 7:41 PM EDT [facility] Creatinine, Plasma 0.79 0.70 - 1.20 mg/dL 06/16/2025 7:41 PM EDT [facility] BUN/Creatinine Ratio 19 06/16/2025 7:41 PM EDT [facility] Sodium, Plasma 134(L) 136 - 145 mmol/L 06/16/2025 7:41 PM EDT [facility] Potassium, Plasma 3.8 3.6 - 4.9 mmol/L 06/16/2025 7:41 PM EDT [facility] Chloride, Plasma 98 97 - 107 mmol/L 06/16/2025 7:41 PM EDT [facility] CO2, Plasma 25 22 - 29 mmol/L 06/16/2025 7:41 PM EDT [facility] Anion Gap 11 6 - 16 mmol/L 06/16/2025 7:41 PM EDT [facility] Total Calcium, Plasma 8.4(L) 8.9 - 10.2 mg/dL 06/16/2025 7:41 PM EDT [facility] Phosphorus, Plasma 2.2(L) 2.5 - 4.5 mg/dL 06/16/2025 7:41 PM EDT [facility] Albumin, Plasma 3.4(L) 3.5 - 5.2 g/dL 06/16/2025 7:41 PM EDT [facility] eGFRcr 96.2 mL/min/1.7 3m*2 06/16/2025 7:41 PM EDT [facility] Comment:Reported eGFRcr in m L/min/1.73m2 is based the CKD-EPI 2020 equation that does not use a race coefficient. Blood Venous blood specimen / Unknown Venipuncture / Unknown 06/16/2025 5:35 PM EDT 06/16/2025 7:12 PM EDT us Phillip Clark MD LAB BLOOD ORDERABLES Final R esult [facility] [address] [place] [address] * SD CRITICAL CARE, E/M 30-74 MINUTES (06/16/2025 9:58 [...] Comment 06/16/2025 8:45 AM EDT [facility] Lathe Hand ID Fariba Blanton [id number] 8:45 AM EDT [employer] [facility] Device ID [id number] 06/16/2025 8:45 AM EDT [facility] Specimen Type POC Arterial 06/16/2025 8:45 AM EDT [facility] Blood Arterial blood specimen / Unknown 06/16/2025 8:40 AM EDT 06/16/2025 8:45 AM EDT us Phillip Clark MD LAB POINT OF CARE TE ST DOCKED DEVICE UNSOLICITED RESULTS Final Result [facility] [address] [place] [address] * (ABNORMAL) Basic metabolic panel (06/16/2025 5:58 AM EDT) Glucose, Plasma 124(H) 74 - 99 mg/dL 06/16/2025 6:35 AM EDT [facility] BUN, Plasma 16 8 - 23 mg/dL 06/16/2025 6:35 AM EDT [facility] Creatinine, Plasma 0.83 0.70 - 1.20 mg/dL 06/16/2025 6:35 AM EDT [facility] BUN/Creatinine Ratio 19 06/16/2025 6:35 AM EDT [facility] Sodium, Plasma 132(L) 136 - 145 mmol/L 06/16/2025 6:35 AM EDT [facility] Potassium, Plasma 3.8 3.6 - 4.9 mmol/L 06/16/2025 6:35 AM EDT [facility] Chloride, Plasma 100 97 - 107 mmol/L 06/16/2025 6:35 AM EDT [facility] CO2, Plasma 25 22 - 29 mmol/L 06/16/2025 6:35 AM EDT [facility] Anion Gap 7 6 - 16 mmol/L 06/16/2025 6:35 AM EDT [facility] Total Calcium, Plasma 8.4(L) 8.9 - 10.2 mg/dL 06/16/2025 6:35 AM EDT [facility] eGFRcr 94.7 mL/min/1.7 3m*2 06/16/2025 6:35 AM EDT [facility] Comment:Reported eGFRcr in m L/min/1.73m2 is based the CKD-EPI 2020 equation that does not use a race coefficient. Blood Arterial blood specimen / Unknown Venipuncture / Unknown 06/16/2025 5:58 AM EDT 06/16/2025 6:05 AM EDT us Phillip Clark MD LAB BLOOD ORDERABLES Final R esult [facility] [address] [place] [address] * XR Chest 1 View (06/16/2025 5:14 AM EDT) Anatomical Region Laterality Modality Chest Digital Radiogra phy Impressions 06/16/2025 8:15 AM EDT Interval removal of the Pentwater-Shira catheter, the right IJ sheath remains in place with tip in the mid to distal SVC. Otherwise, no significant changes CRITICAL RESULT: No. COMMUNICATION: Per this written report. Drafted by Mona mSith MD on 06/16/2025 8:13 AM Final report signed by Mona Smith MD on 06/16/2025 8:15 AM Narrative 06/16/2025 8:15 AM EDT CLINICAL INDICATION: Post-Op Cardiac Surgery TECHNIQUE: XR CHEST 1 VIEW COMPARISON: Chest radiograph 06/15/2025 FINDINGS: Enlarged cardiac silhouette stable status post median sternotomy. Interval removal of the Pentwater-Shira catheter, right IJ sheath remains in place with tip in the mid to distal SVC. No pneumothorax or pleural effusions. Ongoing interstitial edema. Procedure Note Mona Smith MD - 06/16/2025 CLINICAL INDICATION: Post-Op Cardiac Surgery TECHNIQUE: XR CHEST 1 VIEW COMPARISON: Chest radiograph 06/15/2025 FINDINGS: Enlarged cardiac silhouette stable status post median sternotomy. Intervalremoval of the Pentwater-Shira catheter, right IJ sheath remains in place withtip in the mid to distal SVC. No pneumothorax or pleural effusions. Ongoing interstitial edema. IMPRESSION: Interval removal of the Pentwater-Shira catheter, the right IJ sheath remainsin place [...] - 4.5 mg/dL 06/16/2025 1:12 AM EDT [facility] Blood Arterial blood specimen / Unknown Venipuncture / Unknown 06/16/2025 12:36 AM EDT 06/16/2025 12:48 AM EDT Phillip Clark MD LAB BLOOD ORDERABLES Final R esult Performing Organization Address City/[facility]/ZIP Co de Phone Number [facility] [address] [place] [address] * (ABNORMAL) Protime-INR (06/16/2025 12:36 AM EDT) Prothrombin Time 18.0(H) 12.0 - 14.3 sec LAB COAGULATION METHOD 06/16/2025 1:06 AM EDT [facility] INR 1.5(H) 0.9 - 1.1 LAB COAGULATION METHOD 06/16/2025 1:06 AM EDT [facility] Blood Arterial blood specimen / Unknown Venipuncture / Unknown 06/16/2025 12:36 AM EDT 06/16/2025 12:48 AM EDT Narrative [facility] - 06/16/2025 1:06 AM EDT OPTIMAL INR RANGES FOR PATIENT ON ORAL ANTICOAGULANT THERAPY Prevention of venous thromboembolism INR 2.0 to 3.0 In patients with heart disease: Atrial fibrillation INR 2.0 to 3.0 Valvular heart disease INR 2.0 to 3.0 Tissue heart valves INR 2.0 to 3.0 Mechanical prosthetic valves INR 2.5 to 3.5 Prevention of recurrent OR INR 2.5 to 3.5 us Phillip Clark MD LAB BLOOD ORDERABLES Final R esult [facility] [address] [place] [address] * (ABNORMAL) Magnesium (06/16/2025 12:36 AM EDT) Magnesium, Plasma 2.5(H) 1.9 - 2.4 mg/dL 06/16/2025 1:12 AM EDT [facility] Blood Arterial blood specimen / Unknown Venipuncture / Unknown 06/16/2025 12:36 AM EDT 06/16/2025 12:48 AM EDT us Phillip Clark MD LAB BLOOD ORDERABLES Final R esult [facility] [address] [place] [address] * (ABNORMAL) CBC (06/16/2025 12:36 AM EDT) WBC Count 13.67(H) 3.70 - 10.30 10*3/uL LAB HEMATOLOGY METHOD 06/16/2025 1:01 AM EDT [facility] RBC Count 4.36(L) 4.60 - 6.10 10*6/uL LAB HEMATOLOGY METHOD 06/16/2025 1:01 AM EDT [facility] HGB 12.3(L) 13.7 - 17.5 g/dL LAB HEMATOLOGY METHOD 06/16/2025 1:01 AM EDT [facility] HCT 37.1(L) 40.0 - 51.0 % LAB HEMATOLOGY METHOD 06/16/2025 1:01 AM EDT [facility] Platelet Count 106(L) 155 - 369 10*3/uL LAB HEMATOLOGY METHOD 06/16/2025 1:01 AM EDT [facility] MCV 85 79 - 98 fL LAB HEMATOLOGY METHOD 06/16/2025 1:01 AM EDT [facility] MCH 28.2 26.0 - 32.0 pg LAB HEMATOLOGY METHOD 06/16/2025 1:01 AM EDT [facility] MCHC 33.2 30.7 - 35.5 g/dL LAB HEMATOLOGY METHOD 06/16/2025 1:01 AM EDT [facility] RDW 15.4(H) 11.5 - 14.5 % LAB HEMATOLOGY METHOD 06/16/2025 1:01 AM EDT [facility] MPV 10.8 8.8 - 12.5 fL LAB HEMATOLOGY METHOD 06/16/2025 1:01 AM EDT [facility] nRBC 0.0 <=0.0 per 100 WBCs LAB HEMATOLOGY METHOD 06/16/2025 1:01 AM EDT [facility] Blood Arterial blood specimen / Unknown Venipuncture / Unknown 06/16/2025 12:36 AM EDT 06/16/2025 12:48 AM EDT us Phillip Clark MD LAB BLOOD ORDERABLES Final R esult [facility] [address] [place] [address] * (ABNORMAL) Blood gas, arterial (06/16/2025 12:36 AM EDT) pH, Arterial 7.43(H) 7.31 - 7.42 LAB HEMATOLOGY METHOD 06/16/2025 12:58 AM EDT [facility] pCO2, Arterial 41 32 - 45 mmHg LAB HEMATOLOGY METHOD 06/16/2025 12:58 AM EDT [facility] pO2, Arterial 65(L) >80 mmHg LAB HEMATOLOGY METHOD 06/16/2025 12:58 AM EDT [facility] SO2, Measured, Arterial 94 94 - 98 % LAB HEMATOLOGY METHOD 06/16/2025 12:58 AM EDT [facility] Base Excess, Arterial 2.5 -2.0 - 3.0 mmol/L LAB HEMATOLOGY METHOD 06/16/2025 12:58 AM EDT [facility] Bicarbonate, Calculated, Arterial 27(H) 22 - 26 mmol/L LAB HEMATOLOGY METHOD 06/16/2025 12:58 AM EDT [facility] Hematocrit, Whole Blood 37.9(L) 40.0 - 51.0 % LAB HEMATOLOGY METHOD 06/16/2025 12:58 AM EDT [facility] Sodium, Whole Blood 133(L) 136 - 145 mmol/L LAB HEMATOLOGY METHOD 06/16/2025 12:58 AM EDT [facility] Potassium, Whole Blood 3.4(L) 3.6 - 4.9 mmol/L LAB HEMATOLOGY METHOD 06/16/2025 12:58 AM EDT [facility] Chloride, Whole Blood 100 97 - 107 mmol/L LAB HEMATOLOGY METHOD 06/16/2025 12:58 AM EDT [facility] Glucose, Whole Blood 124(H) 74 - 99 mg/dL LAB HEMATOLOGY METHOD 06/16/2025 12:58 AM EDT [facility] Ionized Calcium, Whole Blood 4.3(L) 4.6 - 5.1 mg/dL LAB HEMATOLOGY METHOD 06/16/2025 12:58 AM EDT [facility] Lactate, Arterial, Whole Blood 1.0 0.5 - 1.6 mmol/L LAB HEMATOLOGY METHOD 06/16/2025 12:58 AM EDT [facility] Blood Arterial blood specimen / Unknown Arterial Puncture / Unknown 06/16/2025 12:36 AM EDT 06/16/2025 12:55 AM EDT us Phillip Clark MD LAB BLOOD ORDERABLES Final R esult Performing Organization Address City/[facility] Co de Phone Number [facility] [address] [place] [address] * (ABNORMAL) POCT glucose meter (06/15/2025 8:00 [...] 06/15/2025 8:01 PM EDT [facility] Lathe Hand ID Svetlana Reilly 8:01 PM EDT [facility] Device ID [id number] 06/15/2025 8:01 PM EDT [facility] Specimen Type POC Capillary 06/15/2025 8:01 PM EDT [facility] Blood Capillary blood specimen / Unknown 06/15/2025 8:00 PM EDT 06/15/2025 8:01 PM EDT us Phillip Clark MD LAB POINT OF CARE TE ST DOCKED DEVICE UNSOLICITED RESULTS Final Result Performing Organization Address City/[facility]/ZIP Co de Phone Number HEALTHCARE LAB [address] [id number] * (ABNORMAL) POCT glucose meter (06/15/2025 5:56 PM EDT) [facility] [address] POCT Glucose 121(H) 74 - 99 mg/dL [...] Comment 06/15/2025 5:57 PM EDT HEALTHCARE LAB Lathe Hand ID Bony Thomas [id number] 5:57 PM EDT HEALTHCARE LAB Device ID [id number] 06/15/2025 5:57 PM EDT [facility]ALTH[facility]ARE LAB Specimen Type POC Arterial 06/15/2025 5:57 PM EDT [facility] Blood Arterial blood specimen / Unknown 06/15/2025 5:56 PM EDT 06/15/2025 5:57 PM EDT us Phillip Clark MD LAB POINT OF CARE TE ST DOCKED DEVICE UNSOLICITED RESULTS Final Result Performing Organization Address City/[facility]/ZIP Co de Phone Number HEALTHCARE LAB [address] [place] [address] * Magnesium (06/15/2025 4:11 PM EDT) [facility] [address] Magnesium, Plasma 2.1 1.9 - 2.4 mg/dL 06/15/2025 6:21 PM EDT [facility] Blood Venous blood specimen / Unknown Venipuncture / Unknown 06/15/2025 4:11 PM EDT 06/15/2025 4:39 PM EDT us Phillip Clark MD LAB BLOOD ORDERABLES Final R esult [facility] [address] [place] [address] * Phosphorus (06/15/2025 4:11 PM EDT) Phosphorus, Plasma 2.9 2.5 - 4.5 mg/dL 06/15/2025 5:12 PM EDT [facility] Blood Venous blood specimen / Unknown Venipuncture / Unknown 06/15/2025 4:11 PM EDT 06/15/2025 4:39 PM EDT us Phillip Clark MD LAB BLOOD ORDERABLES Final R esult [facility] [address] [place] [address] * (ABNORMAL) Basic metabolic panel (06/15/2025 4:11 PM EDT) Pathologist [facility] Glucose, Plasma 123(H) 74 - 99 mg/dL 06/15/2025 5:12 PM EDT [facility] BUN, Plasma 19 8 - 23 mg/dL 06/15/2025 5:12 PM EDT [facility] Creatinine, Plasma 0.88 0.70 - 1.20 mg/dL 06/15/2025 5:12 PM EDT [facility] BUN/Creatinine Ratio 22 06/15/2025 5:12 PM EDT [facility] Sodium, Plasma 133(L) 136 - 145 mmol/L 06/15/2025 5:12 PM EDT [facility] Potassium, Plasma 3.9 3.6 - 4.9 mmol/L 06/15/2025 5:12 PM EDT [facility] Chloride, Plasma 102 97 - 107 mmol/L 06/15/2025 5:12 PM EDT [facility] CO2, Plasma 23 22 - 29 mmol/L 06/15/2025 5:12 PM EDT [facility] Anion Gap 8 6 - 16 mmol/L 06/15/2025 5:12 PM EDT [facility] Total Calcium, Plasma 8.6(L) 8.9 - 10.2 mg/dL 06/15/2025 5:12 PM EDT [facility] eGFRcr 93.1 mL/min/1.7 3m*2 06/15/2025 5:12 PM EDT [facility] Comment:Reported eGFRcr in m L/min/1.73m2 is based the CKD-EPI 2020 equation that does not use a race coefficient. Blood Venous blood specimen / Unknown Venipuncture / Unknown 06/15/2025 4:11 PM EDT 06/15/2025 4:39 PM EDT us Phillip Clark MD LAB BLOOD ORDERABLES Final R esult Performing Organization Address City/[facility]/ZIP Co de Phone Number [facility] [address] [place] [address] * (ABNORMAL) POCT glucose meter (06/15/2025 12:14 PM EDT) [facility] Signature POCT Glucose 137(H) 74 - [...] Comment 06/15/2025 12:16 PM EDT HEALTHCARE LAB Lathe Hand ID Bony Thomas [id number] 12:16 PM EDT HEALTHCARE LAB Device ID [id number] 06/15/2025 12:16 PM EDT HEALTHCARE LAB Specimen Type POC Arterial 06/15/2025 12:16 PM EDT [facility]ARE LAB Blood Arterial blood specimen / Unknown 06/15/2025 12:14 PM EDT 06/15/2025 12:16 PM EDT us Phillip Clark MD LAB POINT OF CARE TE ST DOCKED DEVICE UNSOLICITED RESULTS Final Result Performing Organization Address City/[facility]/ZIP Co de Phone Number HEALTHCARE LAB [address] [place] [address] * SD CRITICAL CARE, E/M 30-74 MINUTES (06/15/2025 9:19 [...] - 99 mg/dL 06/15/2025 8:25 AM EDT [facility] Comment:Accuracy of a glucos e result [...] for testing. Comment 06/15/2025 8:25 AM EDT [facility] Lathe Hand ID Bony Thomas [id number] 8:25 AM EDT [facility] Device ID [id number] 06/15/2025 8:25 AM EDT [facility] Specimen Type POC Arterial 06/15/2025 8:25 AM EDT [facility] Blood Arterial blood specimen / Unknown 06/15/2025 8:24 AM EDT 06/15/2025 8:25 AM EDT us Phillip Clark MD LAB POINT OF CARE TE ST DOCKED DEVICE UNSOLICITED RESULTS Final Result [facility]ARE [facility] [address] [place] [id number] * (ABNORMAL) CBC and Differential (06/15/2025 8:18 AM EDT) [facility] Signature WBC Count 12.56(H) 3.70 - 10.30 10*3/uL LAB HEMATOLOGY METHOD 06/15/2025 8:47 AM EDT [facility] RBC Count 4.60 4.60 - 6.10 10*6/uL LAB HEMATOLOGY METHOD 06/15/2025 8:47 AM EDT [facility] HGB 12.8(L) 13.7 - 17.5 g/dL LAB HEMATOLOGY METHOD 06/15/2025 8:47 AM EDT [facility] HCT 39.4(L) 40.0 - 51.0 % LAB HEMATOLOGY METHOD 06/15/2025 8:47 AM EDT [facility] Platelet Count 120(L) 155 - 369 10*3/uL LAB HEMATOLOGY METHOD 06/15/2025 8:47 AM EDT [facility] MCV 86 79 - 98 fL LAB HEMATOLOGY METHOD 06/15/2025 8:47 AM EDT [facility] MCH 27.8 26.0 - 32.0 pg LAB HEMATOLOGY METHOD 06/15/2025 8:47 AM EDT [facility] MCHC 32.5 30.7 - 35.5 g/dL LAB HEMATOLOGY METHOD 06/15/2025 8:47 AM EDT [facility] RDW 15.5(H) 11.5 - 14.5 % LAB HEMATOLOGY METHOD 06/15/2025 8:47 AM EDT [facility] MPV 10.6 8.8 - 12.5 fL LAB HEMATOLOGY METHOD 06/15/2025 8:47 AM EDT [facility] nRBC 0.0 <=0.0 per 100 WBCs LAB HEMATOLOGY METHOD 06/15/2025 8:47 AM EDT [facility] Differential Type Automated LAB HEMATOLOGY METHOD 06/15/2025 8:47 AM EDT [facility] Neutrophils % 84 % LAB HEMATOLOGY METHOD 06/15/2025 8:47 AM EDT [facility] Lymphocytes % 5 % LAB HEMATOLOGY METHOD 06/15/2025 8:47 AM EDT [facility] Monocytes % 10 % LAB HEMATOLOGY METHOD 06/15/2025 8:47 AM EDT [facility] Eosinophils % 0 % LAB HEMATOLOGY METHOD 06/15/2025 8:47 AM EDT [facility] Basophils % 0 % LAB HEMATOLOGY METHOD 06/15/2025 8:47 AM EDT [facility] Immature Granulocytes % 1 % LAB HEMATOLOGY METHOD 06/15/2025 8:47 AM EDT [facility] Neutrophils Absolute 10.59(H) 1.60 - 6.10 10*3/uL LAB HEMATOLOGY METHOD 06/15/2025 8:47 AM EDT [facility] Lymphocytes Absolute 0.60(L) 1.20 - 3.90 10*3/uL LAB HEMATOLOGY METHOD 06/15/2025 8:47 AM EDT [facility] Monocytes Absolute 1.29(H) 0.30 - 0.90 10*3/uL LAB HEMATOLOGY METHOD 06/15/2025 8:47 AM EDT [facility] Eosinophils Absolute 0.00 0.00 - 0.50 10*3/uL LAB HEMATOLOGY METHOD 06/15/2025 8:47 AM EDT [facility] Basophils Absolute 0.02 0.00 - 0.10 10*3/uL LAB HEMATOLOGY METHOD 06/15/2025 8:47 AM EDT [facility] Immature Granulocytes Absolute 0.06 0.00 - 0.06 10*3/uL LAB HEMATOLOGY METHOD 06/15/2025 8:47 AM EDT [facility] Blood Venous blood specimen / Unknown Venipuncture / Unknown 06/15/2025 8:18 AM EDT 06/15/2025 8:34 AM EDT Narrative [facility] - 06/15/2025 8:47 AM EDT Therapeutic decision making should be based on absolute values, rather than percentages. us Phillip Clark MD LAB BLOOD ORDERABLES Final R esult [facility] [address] [place] [address] * (ABNORMAL) Protime-INR (06/15/2025 6:40 AM EDT) Prothrombin Time 16.5(H) 12.0 - 14.3 sec LAB COAGULATION METHOD 06/15/2025 7:53 AM EDT [facility] INR 1.3(H) 0.9 - 1.1 LAB COAGULATION METHOD 06/15/2025 7:53 AM EDT [facility] Blood Arterial blood specimen / Unknown Venipuncture / Unknown 06/15/2025 6:40 AM EDT 06/15/2025 6:47 AM EDT Narrative [facility] - 06/15/2025 7:53 AM EDT OPTIMAL INR RANGES FOR PATIENT ON ORAL ANTICOAGULANT THERAPY Prevention of venous thromboembolism INR 2.0 to 3.0 In patients with heart disease: Atrial fibrillation INR 2.0 to 3.0 Valvular heart disease INR 2.0 to 3.0 Tissue heart valves INR 2.0 to 3.0 Mechanical prosthetic valves INR 2.5 to 3.5 Prevention of recurrent OR INR 2.5 to 3.5 Phillip Clark MD LAB BLOOD ORDERABLES Final R esult Performing Organization Address City/[facility] Co de Phone Number [facility] [address] [place] [address] * Ionized calcium, whole blood (06/15/2025 6:40 AM EDT) Pathologist [facility] Ionized Calcium, Whole Blood 4.6 4.6 - 5.1 mg/dL LAB HEMATOLOGY METHOD 06/15/2025 6:50 AM EDT [facility] Blood Arterial blood specimen / Unknown Venipuncture / Unknown 06/15/2025 6:40 AM EDT 06/15/2025 6:48 AM EDT Phillip Clark MD LAB BLOOD ORDERABLES Final R esult [facility] [address] [place] [address] * ECG Adult - POD 1 (06/15/2025 5:20 AM EDT) EKG DIAGNOSIS CLASS Abnormal MUSE ECG Ventricular Rate 71 BPM MUSE ECG Atrial Rate 71 BPM MUSE ECG SD Interval 182 ms MUSE ECG QRSD Interval 108 ms MUSE ECG QT Interval 418 ms MUSE ECG QTC Interval 454 ms MUSE ECG P Snover 51 degrees MUSE ECG R Snover -48 degrees MUSE ECG T Wave Snover -12 degrees MUSE ECG Diagnosis Normal sinus rhythm MUSE ECG Diagnosis Left anterior fascicular block MUSE ECG Diagnosis Abnormal ECG MUSE ECG Diagnosis MUSE ECG Diagnosis Confirmed by Bimal Brambila ([id number]) on 06/15/2025 11:38:57 AM MUSE ECG 06/15/2025 5:20 AM EDT 06/15/2025 11:38 AM EDT us Phillip Clark MD ECG ORDERABLES Final Result MUSE ECG * (ABNORMAL) Blood gas panel, arterial (06/15/2025 3:58 AM EDT) pH, Arterial 7.39 7.31 - 7.42 LAB HEMATOLOGY METHOD 06/15/2025 4:06 AM EDT [facility] pCO2, Arterial 39 32 - 45 mmHg LAB HEMATOLOGY METHOD 06/15/2025 4:06 AM EDT [facility] pO2, Arterial 79(L) >80 mmHg LAB HEMATOLOGY METHOD 06/15/2025 4:06 AM EDT [facility] SO2, Measured, Arterial 97 94 - 98 % LAB HEMATOLOGY METHOD 06/15/2025 4:06 AM EDT [facility] Base Excess, Arterial -1.2 -2.0 - 3.0 mmol/L LAB HEMATOLOGY METHOD 06/15/2025 4:06 AM EDT [facility] Bicarbonate, Calculated, Arterial 24 22 - 26 mmol/L LAB HEMATOLOGY METHOD 06/15/2025 4:06 AM EDT [facility] Hematocrit, Whole Blood 39.7(L) 40.0 - 51.0 % LAB HEMATOLOGY METHOD 06/15/2025 4:06 AM EDT [facility] Sodium, Whole Blood 134(L) 136 - 145 mmol/L LAB HEMATOLOGY METHOD 06/15/2025 4:06 AM EDT [facility] Potassium, Whole Blood 4.4 3.6 - 4.9 mmol/L LAB HEMATOLOGY METHOD 06/15/2025 4:06 AM EDT [facility] Chloride, Whole Blood 108(H) 97 - 107 mmol/L LAB HEMATOLOGY METHOD 06/15/2025 4:06 AM EDT [facility] Glucose, Whole Blood 132(H) 74 - 99 mg/dL LAB HEMATOLOGY METHOD 06/15/2025 4:06 AM EDT [facility] Ionized Calcium, Whole Blood 4.5(L) 4.6 - 5.1 mg/dL LAB HEMATOLOGY METHOD 06/15/2025 4:06 AM EDT [facility] Lactate, Arterial, Whole Blood 0.9 0.5 - 1.6 mmol/L LAB HEMATOLOGY METHOD 06/15/2025 4:06 AM EDT [facility] Blood Arterial blood specimen / Unknown Arterial Puncture / Unknown 06/15/2025 3:58 AM EDT 06/15/2025 4:06 AM EDT us Phillip Clark MD LAB BLOOD ORDERABLES Final R esult [facility] [address] [place] [address] * XR Chest 1 View (06/15/2025 2:53 [...] of NG tube. Right internal jugular approach [place]-Shira catheter and mediastinal drain in unchanged position. [...] IMG XR PROCEDURES Final Resu lt * SD CRITICAL CARE, ADDL 30 MIN, SD CRITICAL CARE, ADDL 30 MIN (06/15/2025 12:21 [...] LAB HEMATOLOGY METHOD 06/15/2025 8:17 AM EDT [facility] Neutrophils % 85 % LAB HEMATOLOGY METHOD 06/15/2025 8:17 AM EDT [facility] Lymphocytes % 4 % LAB HEMATOLOGY METHOD 06/15/2025 8:17 AM EDT [facility] Monocytes % 10 % LAB HEMATOLOGY METHOD 06/15/2025 8:17 AM EDT [facility] Eosinophils % 0 % LAB HEMATOLOGY METHOD 06/15/2025 8:17 AM EDT [facility] Basophils % 0 % LAB HEMATOLOGY METHOD 06/15/2025 8:17 AM EDT [facility] Immature Granulocytes % 1 % LAB HEMATOLOGY METHOD 06/15/2025 8:17 AM EDT [facility] Immature Granulocytes Absolute 0.05 0.00 - 0.06 10*3/uL LAB HEMATOLOGY METHOD 06/15/2025 8:17 AM EDT [facility] Neutrophils Absolute 9.28(H) 1.60 - 6.10 10*3/uL LAB HEMATOLOGY METHOD 06/15/2025 8:17 AM EDT [facility] Lymphocytes Absolute 0.45(L) 1.20 - 3.90 10*3/uL LAB HEMATOLOGY METHOD 06/15/2025 8:17 AM EDT [facility] Monocytes Absolute 1.14(H) 0.30 - 0.90 10*3/uL LAB HEMATOLOGY METHOD 06/15/2025 8:17 AM EDT [facility] Basophils Absolute 0.02 0.00 - 0.10 10*3/uL LAB HEMATOLOGY METHOD 06/15/2025 8:17 AM EDT [facility] Eosinophils Absolute 0.00 0.00 - 0.50 10*3/uL LAB HEMATOLOGY METHOD 06/15/2025 8:17 AM EDT [facility] Blood Venous blood specimen / Unknown Venipuncture / Unknown 06/15/2025 12:20 AM EDT 06/15/2025 12:26 AM EDT us Phillip Clark MD LAB BLOOD ORDERABLES Final R esult [facility] [address] [place] [address] * Phosphorus (06/15/2025 12:20 AM EDT) Phosphorus, Plasma 2.6 2.5 - 4.5 mg/dL 06/15/2025 8:33 AM EDT [facility] Blood Venous blood specimen / Unknown Venipuncture / Unknown 06/15/2025 12:20 AM EDT 06/15/2025 12:26 AM EDT Phillip Clark MD LAB BLOOD ORDERABLES Final R esult Performing Organization Address [facility] Co de Phone Number [facility] [address] [place] [address] * (ABNORMAL) Magnesium (06/15/2025 12:20 AM EDT) Magnesium, Plasma 2.5(H) 1.9 - 2.4 mg/dL 06/15/2025 7:37 AM EDT [facility] Blood Venous blood specimen / Unknown Venipuncture / Unknown 06/15/2025 12:20 AM EDT 06/15/2025 12:26 AM EDT Phillip Clark MD LAB BLOOD ORDERABLES Final R esult Performing Organization Address [facility] de Phone Number [facility] [address] [place] [address] * (ABNORMAL) Basic metabolic panel (06/15/2025 12:20 AM EDT) Glucose, Plasma 140(H) 74 - 99 mg/dL 06/15/2025 7:37 AM EDT [facility] BUN, Plasma 17 8 - 23 mg/dL 06/15/2025 7:37 AM EDT [facility] Creatinine, Plasma 0.84 0.70 - 1.20 mg/dL 06/15/2025 7:37 AM EDT [facility] BUN/Creatinine Ratio 20 06/15/2025 7:37 AM EDT [facility] Sodium, Plasma 138 136 - 145 mmol/L 06/15/2025 7:37 AM EDT [facility] Potassium, Plasma 4.6 3.6 - 4.9 mmol/L 06/15/2025 7:37 AM EDT [facility] Chloride, Plasma 107 97 - 107 mmol/L 06/15/2025 7:37 AM EDT [facility] CO2, Plasma 18(L) 22 - 29 mmol/L 06/15/2025 7:37 AM EDT [facility] Anion Gap 13 6 - 16 mmol/L 06/15/2025 7:37 AM EDT [facility] Total Calcium, Plasma 8.0(L) 8.9 - 10.2 mg/dL 06/15/2025 7:37 AM EDT [facility] eGFRcr 94.4 mL/min/1.7 3m*2 06/15/2025 7:37 AM EDT [facility] Comment:Reported eGFRcr in m L/min/1.73m2 is based the CKD-EPI 2020 equation that does not use a race coefficient. Blood Venous blood specimen / Unknown Venipuncture / Unknown 06/15/2025 12:20 AM EDT 06/15/2025 12:26 AM EDT us Phillip Clark MD LAB BLOOD ORDERABLES Final R esult [facility] [address] [place] [address] * (ABNORMAL) CBC W/O Differential (06/15/2025 12:20 AM EDT) WBC Count 10.94(H) 3.70 - 10.30 10*3/uL LAB HEMATOLOGY METHOD 06/15/2025 8:32 AM EDT [facility] RBC Count 4.94 4.60 - 6.10 10*6/uL LAB HEMATOLOGY METHOD 06/15/2025 8:32 AM EDT [facility] HGB 13.6(L) 13.7 - 17.5 g/dL LAB HEMATOLOGY METHOD 06/15/2025 8:32 AM EDT [facility] HCT 41.0 40.0 - 51.0 % LAB HEMATOLOGY METHOD 06/15/2025 8:32 AM EDT [facility] Platelet Count 142(L) 155 - 369 10*3/uL LAB HEMATOLOGY METHOD 06/15/2025 8:32 AM EDT [facility] MCV 87 79 - 98 fL LAB HEMATOLOGY METHOD 06/15/2025 8:32 AM EDT [facility] MCH 27.5 26.0 - 32.0 pg LAB HEMATOLOGY METHOD 06/15/2025 8:32 AM EDT [facility] MCHC 31.8 30.7 - 35.5 g/dL LAB HEMATOLOGY METHOD 06/15/2025 8:32 AM EDT [facility] RDW 15.6(H) 11.5 - 14.5 % LAB HEMATOLOGY METHOD 06/15/2025 8:32 AM EDT [facility] MPV 11.1 8.8 - 12.5 fL LAB HEMATOLOGY METHOD 06/15/2025 8:32 AM EDT [facility] nRBC 0.0 <=0.0 per 100 WBCs LAB HEMATOLOGY METHOD 06/15/2025 8:32 AM EDT [facility] Blood Venous blood specimen / Unknown Venipuncture / Unknown 06/15/2025 12:20 AM EDT 06/15/2025 12:26 AM EDT us Phillip Clark MD LAB BLOOD ORDERABLES Final R esult Performing Organization Address City/[facility]/ZIP Co de Phone Number [facility] [address] [place] [address] * Potassium, Plasma (06/15/2025 12:20 AM EDT) Pathologist [facility] Potassium, Plasma 4.5 3.6 - 4.9 mmol/L 06/15/2025 12:51 AM EDT [facility] Blood Venous blood specimen / Unknown Venipuncture / Unknown 06/15/2025 12:20 AM EDT 06/15/2025 12:26 AM EDT Phillip Clark MD LAB BLOOD ORDERABLES Final R esult [facility] [address] [place] [address] * Hematocrit (06/15/2025 12:20 AM EDT) HCT 41.0 40.0 - 51.0 % LAB HEMATOLOGY METHOD 06/15/2025 12:36 AM EDT [facility] Blood Venous blood specimen / Unknown Venipuncture / Unknown 06/15/2025 12:20 AM EDT 06/15/2025 12:26 AM EDT Phillip Clark MD LAB BLOOD ORDERABLES Final R esult Performing Organization Address [facility] Co de Phone Number [facility] [address] [place] [address] * (ABNORMAL) Hemoglobin (06/15/2025 12:20 AM EDT) Pathologist [facility] HGB 13.6(L) 13.7 - 17.5 g/dL LAB HEMATOLOGY METHOD 06/15/2025 12:36 AM EDT [facility] Blood Venous blood specimen / Unknown Venipuncture / Unknown 06/15/2025 12:20 AM EDT 06/15/2025 12:26 AM EDT Phillip Clark MD LAB BLOOD ORDERABLES Final R esult Performing Organization Address [facility] de Phone Number [facility] [address] [place] [address] * (ABNORMAL) Blood gas, arterial (06/15/2025 12:20 AM EDT) pH, Arterial 7.37 7.31 - 7.42 LAB HEMATOLOGY METHOD 06/15/2025 12:37 AM EDT [facility] pCO2, Arterial 40 32 - 45 mmHg LAB HEMATOLOGY METHOD 06/15/2025 12:37 AM EDT [facility] pO2, Arterial 65(L) >80 mmHg LAB HEMATOLOGY METHOD 06/15/2025 12:37 AM EDT [facility] SO2, Measured, Arterial 94 94 - 98 % LAB HEMATOLOGY METHOD 06/15/2025 12:37 AM EDT [facility] Base Excess, Arterial -1.8 -2.0 - 3.0 mmol/L LAB HEMATOLOGY METHOD 06/15/2025 12:37 AM EDT [facility] Bicarbonate, Calculated, Arterial 23 22 - 26 mmol/L LAB HEMATOLOGY METHOD 06/15/2025 12:37 AM EDT [facility] Hematocrit, Whole Blood 41.1 40.0 - 51.0 % LAB HEMATOLOGY METHOD 06/15/2025 12:37 AM EDT [facility] Sodium, Whole Blood 137 136 - 145 mmol/L LAB HEMATOLOGY METHOD 06/15/2025 12:37 AM EDT [facility] Potassium, Whole Blood 4.2 3.6 - 4.9 mmol/L LAB HEMATOLOGY METHOD 06/15/2025 12:37 AM EDT [facility] Chloride, Whole Blood 110(H) 97 - 107 mmol/L LAB HEMATOLOGY METHOD 06/15/2025 12:37 AM EDT [facility] Glucose, Whole Blood 140(H) 74 - 99 mg/dL LAB HEMATOLOGY METHOD 06/15/2025 12:37 AM EDT [facility] Ionized Calcium, Whole Blood 4.5(L) 4.6 - 5.1 mg/dL LAB HEMATOLOGY METHOD 06/15/2025 12:37 AM EDT [facility] Lactate, Arterial, Whole Blood 1.8(H) 0.5 - 1.6 mmol/L LAB HEMATOLOGY METHOD 06/15/2025 12:37 AM EDT [facility] Blood Arterial blood specimen / Unknown Arterial Puncture / Unknown 06/15/2025 12:20 AM EDT 06/15/2025 12:34 AM EDT Phillip Clark MD LAB BLOOD ORDERABLES Final R esult [facility] [address] [place] [address] * (ABNORMAL) Blood gas, arterial (06/14/2025 8:04 PM EDT) pH, Arterial 7.35 7.31 - 7.42 LAB HEMATOLOGY METHOD 06/14/2025 8:19 PM EDT [facility] pCO2, Arterial 39 32 - 45 mmHg LAB HEMATOLOGY METHOD 06/14/2025 8:19 PM EDT [facility] pO2, Arterial 88 >80 mmHg LAB HEMATOLOGY METHOD 06/14/2025 8:19 PM EDT [facility] SO2, Measured, Arterial 98 94 - 98 % LAB HEMATOLOGY METHOD 06/14/2025 8:19 PM EDT [facility] Base Excess, Arterial -3.7(L) -2.0 - 3.0 mmol/L LAB HEMATOLOGY METHOD 06/14/2025 8:19 PM EDT [facility] Bicarbonate, Calculated, Arterial 22 22 - 26 mmol/L LAB HEMATOLOGY METHOD 06/14/2025 8:19 PM EDT [facility] Hematocrit, Whole Blood 44.7 40.0 - 51.0 % LAB HEMATOLOGY METHOD 06/14/2025 8:19 PM EDT [facility] Sodium, Whole Blood 138 136 - 145 mmol/L LAB HEMATOLOGY METHOD 06/14/2025 8:19 PM EDT [facility] Potassium, Whole Blood 4.5 3.6 - 4.9 mmol/L LAB HEMATOLOGY METHOD 06/14/2025 8:19 PM EDT [facility] Chloride, Whole Blood 109(H) 97 - 107 mmol/L LAB HEMATOLOGY METHOD 06/14/2025 8:19 PM EDT [facility] Glucose, Whole Blood 185(H) 74 - 99 mg/dL LAB HEMATOLOGY METHOD 06/14/2025 8:19 PM EDT [facility] Ionized Calcium, Whole Blood 4.5(L) 4.6 - 5.1 mg/dL LAB HEMATOLOGY METHOD 06/14/2025 8:19 PM EDT [facility] Lactate, Arterial, Whole Blood 3.0(H) 0.5 - 1.6 mmol/L LAB HEMATOLOGY METHOD 06/14/2025 8:19 PM EDT [facility] Blood Arterial blood specimen / Unknown Arterial Puncture / Unknown 06/14/2025 8:04 PM EDT 06/14/2025 8:14 PM EDT us Phillip Clark MD LAB BLOOD ORDERABLES Final R esult [facility] [address] [place] [address] * Potassium (06/14/2025 8:03 PM EDT) Potassium, Plasma 4.9 3.6 - 4.9 mmol/L 06/14/2025 8:33 PM EDT [facility] Blood Arterial blood specimen / Unknown Venipuncture / Unknown 06/14/2025 8:03 PM EDT 06/14/2025 8:11 PM EDT Phillip Clark MD LAB BLOOD ORDERABLES Final R esult Performing Organization Address City/[facility]/ZIP Co de Phone Number [facility] [address] [place] [address] * (ABNORMAL) Magnesium (06/14/2025 8:03 PM EDT) Magnesium, Plasma 2.7(H) 1.9 - 2.4 mg/dL 06/14/2025 8:40 PM EDT [facility] Blood Arterial blood specimen / Unknown Venipuncture / Unknown 06/14/2025 8:03 PM EDT 06/14/2025 8:11 PM EDT Phillip Clark MD LAB BLOOD ORDERABLES Final R esult Performing Organization Address City/[facility]/ZIP Co de Phone Number [facility] [address] [place] [address] * (ABNORMAL) CBC (06/14/2025 8:03 PM EDT) WBC Count 13.98(H) 3.70 - 10.30 10*3/uL LAB HEMATOLOGY METHOD 06/14/2025 8:20 PM EDT [facility] RBC Count 5.14 4.60 - 6.10 10*6/uL LAB HEMATOLOGY METHOD 06/14/2025 8:20 PM EDT [facility] HGB 14.5 13.7 - 17.5 g/dL LAB HEMATOLOGY METHOD 06/14/2025 8:20 PM EDT [facility] HCT 43.9 40.0 - 51.0 % LAB HEMATOLOGY METHOD 06/14/2025 8:20 PM EDT [facility] Platelet Count 158 155 - 369 10*3/uL LAB HEMATOLOGY METHOD 06/14/2025 8:20 PM EDT [facility] MCV 85 79 - 98 fL LAB HEMATOLOGY METHOD 06/14/2025 8:20 PM EDT [facility] MCH 28.2 26.0 - 32.0 pg LAB HEMATOLOGY METHOD 06/14/2025 8:20 PM EDT [facility] MCHC 33.0 30.7 - 35.5 g/dL LAB HEMATOLOGY METHOD 06/14/2025 8:20 PM EDT [facility] RDW 14.9(H) 11.5 - 14.5 % LAB HEMATOLOGY METHOD 06/14/2025 8:20 PM EDT [facility] MPV 10.8 8.8 - 12.5 fL LAB HEMATOLOGY METHOD 06/14/2025 8:20 PM EDT [facility] nRBC 0.0 <=0.0 per 100 WBCs LAB HEMATOLOGY METHOD 06/14/2025 8:20 PM EDT [facility] Blood Arterial blood specimen / Unknown Venipuncture / Unknown 06/14/2025 8:03 PM EDT 06/14/2025 8:11 PM EDT us Phillip Clark MD LAB BLOOD ORDERABLES Final R esult [facility] [address] [place] [address] * (ABNORMAL) Basic metabolic panel (06/14/2025 8:03 PM EDT) Glucose, Plasma 194(H) 74 - 99 mg/dL 06/14/2025 8:40 PM EDT [facility] BUN, Plasma 16 8 - 23 mg/dL 06/14/2025 8:40 PM EDT [facility] Creatinine, Plasma 0.85 0.70 - 1.20 mg/dL 06/14/2025 8:40 PM EDT [facility] BUN/Creatinine Ratio 19 06/14/2025 8:40 PM EDT [facility] Sodium, Plasma 139 136 - 145 mmol/L 06/14/2025 8:40 PM EDT [facility] Potassium, Plasma 5.0(H) 3.6 - 4.9 mmol/L 06/14/2025 8:40 PM EDT [facility] Chloride, Plasma 109(H) 97 - 107 mmol/L 06/14/2025 8:40 PM EDT [facility] CO2, Plasma 20(L) 22 - 29 mmol/L 06/14/2025 8:40 PM EDT [facility] Anion Gap 10 6 - 16 mmol/L 06/14/2025 8:40 PM EDT [facility] Total Calcium, Plasma 8.2(L) 8.9 - 10.2 mg/dL 06/14/2025 8:40 PM EDT [facility] eGFRcr 94.1 mL/min/1.7 3m*2 06/14/2025 8:40 PM EDT [facility] Comment:Reported eGFRcr in m L/min/1.73m2 is based the CKD-EPI 2020 equation that does not use a race coefficient. Blood Arterial blood specimen / Unknown Venipuncture / Unknown 06/14/2025 8:03 PM EDT 06/14/2025 8:11 PM EDT us Phillip Clark MD LAB BLOOD ORDERABLES Final R esult [facility] [address] [place] [address] * (ABNORMAL) Blood gas panel, arterial (06/14/2025 6:47 PM EDT) pH, Arterial 7.30(L) 7.31 - 7.42 LAB HEMATOLOGY METHOD 06/14/2025 6:57 PM EDT [facility] pCO2, Arterial 41 32 - 45 mmHg LAB HEMATOLOGY METHOD 06/14/2025 6:57 PM EDT [facility] pO2, Arterial 70(L) >80 mmHg LAB HEMATOLOGY METHOD 06/14/2025 6:57 PM EDT [facility] SO2, Measured, Arterial 94 94 - 98 % LAB HEMATOLOGY METHOD 06/14/2025 6:57 PM EDT [facility] Base Excess, Arterial -5.6(L) -2.0 - 3.0 mmol/L LAB HEMATOLOGY METHOD 06/14/2025 6:57 PM EDT [facility] Bicarbonate, Calculated, Arterial 21(L) 22 - 26 mmol/L LAB HEMATOLOGY METHOD 06/14/2025 6:57 PM EDT [facility] Hematocrit, Whole Blood 45.5 40.0 - 51.0 % LAB HEMATOLOGY METHOD 06/14/2025 6:57 PM EDT [facility] Sodium, Whole Blood 138 136 - 145 mmol/L LAB HEMATOLOGY METHOD 06/14/2025 6:57 PM EDT [facility] Potassium, Whole Blood 4.4 3.6 - 4.9 mmol/L LAB HEMATOLOGY METHOD 06/14/2025 6:57 PM EDT [facility] Chloride, Whole Blood 109(H) 97 - 107 mmol/L LAB HEMATOLOGY METHOD 06/14/2025 6:57 PM EDT [facility] Glucose, Whole Blood 209(H) 74 - 99 mg/dL LAB HEMATOLOGY METHOD 06/14/2025 6:57 PM EDT [facility] Ionized Calcium, Whole Blood 4.6 4.6 - 5.1 mg/dL LAB HEMATOLOGY METHOD 06/14/2025 6:57 PM EDT [facility] Lactate, Arterial, Whole Blood 3.9(H) 0.5 - 1.6 mmol/L LAB HEMATOLOGY METHOD 06/14/2025 6:57 PM EDT [facility] Blood Arterial blood specimen / Unknown Arterial Puncture / Unknown 06/14/2025 6:47 PM EDT 06/14/2025 6:56 PM EDT us Phillip Clark MD LAB BLOOD ORDERABLES Final R esult Performing Organization Address City/State/[facility] Co de Phone Number [facility] [address] [place] [address] * SD CRITICAL CARE, E/M 30-74 MINUTES (06/14/2025 5:35 [...] LAB HEMATOLOGY METHOD 06/14/2025 4:12 PM EDT [facility] pCO2, Arterial 43 32 - 45 mmHg LAB HEMATOLOGY METHOD 06/14/2025 4:12 PM EDT [facility] pO2, Arterial 126 >80 mmHg LAB HEMATOLOGY METHOD 06/14/2025 4:12 PM EDT [facility] SO2, Measured, Arterial 99(H) 94 - 98 % LAB HEMATOLOGY METHOD 06/14/2025 4:12 PM EDT [facility] Base Excess, Arterial -5.8(L) -2.0 - 3.0 mmol/L LAB HEMATOLOGY METHOD 06/14/2025 4:12 PM EDT [facility] Bicarbonate, Calculated, Arterial 21(L) 22 - 26 mmol/L LAB HEMATOLOGY METHOD 06/14/2025 4:12 PM EDT [facility] Hematocrit, Whole Blood 43.9 40.0 - 51.0 % LAB HEMATOLOGY METHOD 06/14/2025 4:12 PM EDT [facility] Sodium, Whole Blood 139 136 - 145 mmol/L LAB HEMATOLOGY METHOD 06/14/2025 4:12 PM EDT [facility] Potassium, Whole Blood 3.8 3.6 - 4.9 mmol/L LAB HEMATOLOGY METHOD 06/14/2025 4:12 PM EDT [facility] Chloride, Whole Blood 109(H) 97 - 107 mmol/L LAB HEMATOLOGY METHOD 06/14/2025 4:12 PM EDT [facility] Glucose, Whole Blood 179(H) 74 - 99 mg/dL LAB HEMATOLOGY METHOD 06/14/2025 4:12 PM EDT [facility] Ionized Calcium, Whole Blood 4.6 4.6 - 5.1 mg/dL LAB HEMATOLOGY METHOD 06/14/2025 4:12 PM EDT [facility] Lactate, Arterial, Whole Blood 4.3(H) 0.5 - 1.6 mmol/L LAB HEMATOLOGY METHOD 06/14/2025 4:12 PM EDT [facility] Blood Arterial blood specimen / Unknown Arterial Puncture / Unknown 06/14/2025 3:57 PM EDT 06/14/2025 4:11 PM EDT us Phillip Clark MD LAB BLOOD ORDERABLES Final R esult [facility] [address] [place] [address] * (ABNORMAL) Blood gas panel with oximetry, mixed venous (06/14/2025 3:00 PM EDT) pH, Mixed Venous 7.28(L) 7.32 - 7.43 LAB HEMATOLOGY METHOD 06/14/2025 3:24 PM EDT [facility] pCO2, Mixed Venous 47 40 - 55 mmHg LAB HEMATOLOGY METHOD 06/14/2025 3:24 PM EDT [facility] pO2, Mixed Venous 54(H) 25 - 40 mmHg LAB HEMATOLOGY METHOD 06/14/2025 3:24 PM EDT [facility] SO2, Measured, Mixed Venous 84(H) 65 - 80 % LAB HEMATOLOGY METHOD 06/14/2025 3:24 PM EDT [facility] Bicarbonate, Calculated, Mixed Venous 22 22 - 26 mmol/L LAB HEMATOLOGY METHOD 06/14/2025 3:24 PM EDT [facility] Base Excess, Mixed Venous -4.7(L) -2.0 - 3.0 mmol/L LAB HEMATOLOGY METHOD 06/14/2025 3:24 PM EDT [facility] Hematocrit, Whole Blood 43.0 40.0 - 51.0 % LAB HEMATOLOGY METHOD 06/14/2025 3:24 PM EDT [facility] Sodium, Whole Blood 139 136 - 145 mmol/L LAB HEMATOLOGY METHOD 06/14/2025 3:24 PM EDT [facility] Potassium, Whole Blood 3.7 3.6 - 4.9 mmol/L LAB HEMATOLOGY METHOD 06/14/2025 3:24 PM EDT [facility] Chloride, Whole Blood 110(H) 97 - 107 mmol/L LAB HEMATOLOGY METHOD 06/14/2025 3:24 PM EDT [facility] Ionized Calcium, Whole Blood 4.6 4.6 - 5.1 mg/dL LAB HEMATOLOGY METHOD 06/14/2025 3:24 PM EDT [facility] Glucose, Whole Blood 149(H) 74 - 99 mg/dL LAB HEMATOLOGY METHOD 06/14/2025 3:24 PM EDT [facility] Oxyhemoglobin, Mixed Venous, Whole Blood 81.9(H) 40.0 - 70.0 % LAB HEMATOLOGY METHOD 06/14/2025 3:24 PM EDT [facility] Hemoglobin Reduced, Mixed Venous, Whole Blood 16.1 % LAB HEMATOLOGY METHOD 06/14/2025 3:24 PM EDT [facility] Total Hemoglobin, Mixed Venous, Whole Blood 14.0 13.7 - 17.5 g/dL LAB HEMATOLOGY METHOD 06/14/2025 3:24 PM EDT [facility] Blood Mixed venous blood specimen / Unknown Venipuncture / Unknown 06/14/2025 3:00 PM EDT 06/14/2025 3:23 PM EDT us Phillip Clark MD LAB BLOOD ORDERABLES Final R esult [facility] [address] [place] [address] * XR Abdomen 1 View (06/14/2025 2:57 [...] Detected Not Detected 06/15/2025 12:46 PM EDT [facility] Swab (Axilla and Groin) Non-blood Collection / Unknown 06/14/2025 2:37 PM EDT 06/14/2025 3:10 PM EDT Narrative [facility] - 06/15/2025 12:46 PM EDT This PCR assay was developed and its performance characteristics determined by [facility] as appropriate for clinical purposes. This assay has not been cleared or approved by the FDA, but is performed in a CLIA regulated laboratory that is qualified to perform high-complexity testing. Phillip Clark MD LAB MICROBIOLOGY - GENERAL O RDERABLES Final Result Performing Organization Address [facility] Co de Phone Number [facility] [address] [place] [address] * Multi Drug Resistance Test (06/14/2025 2:37 PM EDT) Culture No growth at day 1 06/15/2025 4:03 PM EDT [facility] Swab (Nares and Smita Rectal) Non-blood Collection / Unknown 06/14/2025 2:37 PM EDT 06/14/2025 3:10 PM EDT Narrative [facility] - 06/15/2025 4:03 PM EDT This test was developed and its performance characteristics determined by the [facility]. Although the media is FDA-approved, it is not FDA-approved for all specimen types submitted. The FDA has determined that such clearance or approval is not necessary. This test is used for surveillance purposes. It should not be regarded as investigational or for research. The [facility] is certified under the Clinical Laboratory Improvement Amendments of 1988 (CLIA-88) as qualified to perform high complexity clinical laboratory testing. us Phillip Clark MD LAB MICROBIOLOGY - GENERAL O RDERABLES Final Result Performing Organization Address [facility] Co de Phone Number [facility] [address] [place] [address] * (ABNORMAL) Blood gas, arterial (06/14/2025 2:37 PM EDT) pH, Arterial 7.31 7.31 - 7.42 LAB HEMATOLOGY METHOD 06/14/2025 2:58 PM EDT [facility] pCO2, Arterial 42 32 - 45 mmHg LAB HEMATOLOGY METHOD 06/14/2025 2:58 PM EDT [facility] pO2, Arterial 154 >80 mmHg LAB HEMATOLOGY METHOD 06/14/2025 2:58 PM EDT [facility] SO2, Measured, Arterial 100(H) 94 - 98 % LAB HEMATOLOGY METHOD 06/14/2025 2:58 PM EDT [facility] Base Excess, Arterial -5.1(L) -2.0 - 3.0 mmol/L LAB HEMATOLOGY METHOD 06/14/2025 2:58 PM EDT [facility] Bicarbonate, Calculated, Arterial 21(L) 22 - 26 mmol/L LAB HEMATOLOGY METHOD 06/14/2025 2:58 PM EDT [facility] Hematocrit, Whole Blood 43.5 40.0 - 51.0 % LAB HEMATOLOGY METHOD 06/14/2025 2:58 PM EDT [facility] Sodium, Whole Blood 139 136 - 145 mmol/L LAB HEMATOLOGY METHOD 06/14/2025 2:58 PM EDT [facility] Potassium, Whole Blood 3.6 3.6 - 4.9 mmol/L LAB HEMATOLOGY METHOD 06/14/2025 2:58 PM EDT [facility] Chloride, Whole Blood 110(H) 97 - 107 mmol/L LAB HEMATOLOGY METHOD 06/14/2025 2:58 PM EDT [facility] Glucose, Whole Blood 131(H) 74 - 99 mg/dL LAB HEMATOLOGY METHOD 06/14/2025 2:58 PM EDT [facility] Ionized Calcium, Whole Blood 4.7 4.6 - 5.1 mg/dL LAB HEMATOLOGY METHOD 06/14/2025 2:58 PM EDT [facility] Lactate, Arterial, Whole Blood 5.0(H) 0.5 - 1.6 mmol/L LAB HEMATOLOGY METHOD 06/14/2025 2:58 PM EDT [facility] Blood Arterial blood specimen / Unknown Arterial Puncture / Unknown 06/14/2025 2:37 PM EDT 06/14/2025 2:57 PM EDT us Phillip Clark MD LAB BLOOD ORDERABLES Final R esult [facility] [address] [place] [address] * ECG Adult - Upon Admissoin to CVICU (06/14/2025 2:36 PM EDT) EKG DIAGNOSIS CLASS Abnormal MUSE ECG Ventricular Rate 61 BPM MUSE ECG Atrial Rate 61 BPM MUSE ECG SD Interval 176 ms MUSE ECG QRSD Interval 154 ms MUSE ECG QT Interval 520 ms MUSE ECG QTC Interval 523 ms MUSE ECG P Snover 58 degrees MUSE ECG R Snover 113 degrees MUSE ECG T Wave Snover -67 degrees MUSE ECG Diagnosis Sinus rhythm with occasional ventricular-paced complexes MUSE ECG Diagnosis Suspect unspecified pacemaker failure MUSE ECG Diagnosis Nonspecific intraventricular block MUSE ECG Diagnosis Minimal voltage criteria for LVH, may be normal variant ( [place] product ) MUSE ECG Diagnosis Abnormal ECG MUSE ECG Diagnosis MUSE ECG Diagnosis Confirmed by Brenton Mejia ([id number]) on 06/14/2025 3:39:18 PM MUSE ECG 06/14/2025 2:36 PM EDT 06/14/2025 3:39 PM EDT us Phillip Clark MD ECG ORDERABLES Final Result Performing Organization Address City/[facility]/ZIP Co de Phone Number MUSE ECG * Potassium, Plasma (06/14/2025 2:36 PM EDT) [facility] [address] Potassium, Plasma 3.8 3.6 - 4.9 mmol/L 06/14/2025 4:13 PM EDT [facility] Comment:Hemolyzed, result ma y be falsely increased. Blood Venous blood specimen / Unknown Venipuncture / Unknown 06/14/2025 2:36 PM EDT 06/14/2025 3:20 PM EDT us Phillip Clark MD LAB BLOOD ORDERABLES Final R esult [facility] [address] [place] [address] * Hematocrit (06/14/2025 2:36 PM EDT) [facility] [address] HCT 42.6 40.0 - 51.0 % LAB HEMATOLOGY METHOD 06/14/2025 4:38 PM EDT [facility] Blood Venous blood specimen / Unknown Venipuncture / Unknown 06/14/2025 2:36 PM EDT 06/14/2025 4:17 PM EDT Phillip Clark MD LAB BLOOD ORDERABLES Final R esult Performing Organization Address [facility]/ZIP Co de Phone Number [facility] [address] [place] [address] * Hemoglobin (06/14/2025 2:36 PM EDT) HGB 13.9 13.7 - 17.5 g/dL LAB HEMATOLOGY METHOD 06/14/2025 4:38 PM EDT [facility] Blood Venous blood specimen / Unknown Venipuncture / Unknown 06/14/2025 2:36 PM EDT 06/14/2025 4:17 PM EDT Phillip Clark MD LAB BLOOD ORDERABLES Final R esult Performing Organization Address [facility] Co de Phone Number [facility] [address] [place] [address] * APTT (06/14/2025 2:36 PM EDT) aPTT 29 25 - 35 sec LAB COAGULATION METHOD 06/14/2025 4:11 PM EDT [facility] Blood Venous blood specimen / Unknown Venipuncture / Unknown 06/14/2025 2:36 PM EDT 06/14/2025 3:18 PM EDT Phillip Clark MD LAB BLOOD ORDERABLES Final R esult Performing Organization Address City/[facility] Co de Phone Number [facility] [address] [place] [address] * (ABNORMAL) Protime-INR (06/14/2025 2:36 PM EDT) Prothrombin Time 16.6(H) 12.0 - 14.3 sec LAB COAGULATION METHOD 06/14/2025 4:11 PM EDT [facility] INR 1.3(H) 0.9 - 1.1 LAB COAGULATION METHOD 06/14/2025 4:11 PM EDT [facility] Blood Venous blood specimen / Unknown Venipuncture / Unknown 06/14/2025 2:36 PM EDT 06/14/2025 3:18 PM EDT Narrative [facility] - 06/14/2025 4:11 PM EDT OPTIMAL INR RANGES FOR PATIENT ON ORAL ANTICOAGULANT THERAPY Prevention of venous thromboembolism INR 2.0 to 3.0 In patients with heart disease: Atrial fibrillation INR 2.0 to 3.0 Valvular heart disease INR 2.0 to 3.0 Tissue heart valves INR 2.0 to 3.0 Mechanical prosthetic valves INR 2.5 to 3.5 Prevention of recurrent OR INR 2.5 to 3.5 Phillip Clark MD LAB BLOOD ORDERABLES Final R Technoratiult Performing Organization Address City/[facility]/ZIP Co de Phone Number [facility] [address] [place] [address] * (ABNORMAL) Phosphorus (06/14/2025 2:36 PM EDT) Phosphorus, Plasma 2.3(L) 2.5 - 4.5 mg/dL 06/14/2025 4:13 PM EDT [facility] Blood Venous blood specimen / Unknown Venipuncture / Unknown 06/14/2025 2:36 PM EDT 06/14/2025 3:20 PM EDT Phillip Clark MD LAB BLOOD ORDERABLES Final R esult [facility] [address] [place] [address] * (ABNORMAL) Magnesium (06/14/2025 2:36 PM EDT) Magnesium, Plasma 3.2(H) 1.9 - 2.4 mg/dL 06/14/2025 6:55 PM EDT [facility] Blood Venous blood specimen / Unknown Venipuncture / Unknown 06/14/2025 2:36 PM EDT 06/14/2025 3:20 PM EDT us Phillip Clark MD LAB BLOOD ORDERABLES Final R esult [facility] [address] [place] [address] * (ABNORMAL) Basic metabolic panel (06/14/2025 2:36 PM EDT) Glucose, Plasma 134(H) 74 - 99 mg/dL 06/14/2025 4:13 PM EDT [facility] BUN, Plasma 14 8 - 23 mg/dL 06/14/2025 4:13 PM EDT [facility] Creatinine, Plasma 0.83 0.70 - 1.20 mg/dL 06/14/2025 4:13 PM EDT [facility] BUN/Creatinine Ratio 17 06/14/2025 4:13 PM EDT [facility] Sodium, Plasma 140 136 - 145 mmol/L 06/14/2025 4:13 PM EDT [facility] Potassium, Plasma 3.8 3.6 - 4.9 mmol/L 06/14/2025 4:13 PM EDT [facility] Comment:Hemolyzed, result ma y be falsely increased. Chloride, Plasma 108(H) 97 - 107 mmol/L 06/14/2025 4:13 PM EDT [facility] CO2, Plasma 19(L) 22 - 29 mmol/L 06/14/2025 4:13 PM EDT [facility] Anion Gap 13 6 - 16 mmol/L 06/14/2025 4:13 PM EDT [facility] Total Calcium, Plasma 8.3(L) 8.9 - 10.2 mg/dL 06/14/2025 4:13 PM EDT [facility] eGFRcr 94.7 mL/min/1.7 3m*2 06/14/2025 4:13 PM EDT [facility] Comment:Reported eGFRcr in m L/min/1.73m2 is based the CKD-EPI 2020 equation that does not use a race coefficient. Blood Venous blood specimen / Unknown Venipuncture / Unknown 06/14/2025 2:36 PM EDT 06/14/2025 3:20 PM EDT us Phillip Clark MD LAB BLOOD ORDERABLES Final R esult [facility] [address] [place] [address] * (ABNORMAL) CBC (06/14/2025 2:36 PM EDT) WBC Count 15.83(H) 3.70 - 10.30 10*3/uL LAB HEMATOLOGY METHOD 06/14/2025 4:38 PM EDT [facility] RBC Count 4.98 4.60 - 6.10 10*6/uL LAB HEMATOLOGY METHOD 06/14/2025 4:38 PM EDT [facility] HGB 13.9 13.7 - 17.5 g/dL LAB HEMATOLOGY METHOD 06/14/2025 4:38 PM EDT [facility] HCT 42.6 40.0 - 51.0 % LAB HEMATOLOGY METHOD 06/14/2025 4:38 PM EDT [facility] Platelet Count 160 155 - 369 10*3/uL LAB HEMATOLOGY METHOD 06/14/2025 4:38 PM EDT [facility] MCV 86 79 - 98 fL LAB HEMATOLOGY METHOD 06/14/2025 4:38 PM EDT [facility] MCH 27.9 26.0 - 32.0 pg LAB HEMATOLOGY METHOD 06/14/2025 4:38 PM EDT [facility] MCHC 32.6 30.7 - 35.5 g/dL LAB HEMATOLOGY METHOD 06/14/2025 4:38 PM EDT [facility] RDW 15.2(H) 11.5 - 14.5 % LAB HEMATOLOGY METHOD 06/14/2025 4:38 PM EDT [facility] MPV 10.3 8.8 - 12.5 fL LAB HEMATOLOGY METHOD 06/14/2025 4:38 PM EDT [facility] nRBC 0.0 <=0.0 per 100 WBCs LAB HEMATOLOGY METHOD 06/14/2025 4:38 PM EDT [facility] Blood Venous blood specimen / Unknown Venipuncture / Unknown 06/14/2025 2:36 PM EDT 06/14/2025 4:17 PM EDT us Phillip Clark MD LAB BLOOD ORDERABLES Final R esult [facility] [address] [place] [address] * (ABNORMAL) POCT arterial blood gas gem (06/14/2025 2:00 PM EDT) pH, Arterial 7.35 7.31 - 7.42 06/14/2025 2:02 PM EDT [facility] pCO2, Arterial 38 32 - 45 mm Hg 06/14/2025 2:02 PM EDT [facility] pO2, Arterial 376 >80 mm Hg 06/14/2025 2:02 PM EDT [facility] SO2, Arterial 100(H) 94 - 98 % 06/14/2025 2:02 PM EDT [facility] Base Excess, Arterial -4.2(L) -2 - 3 mmol/L 06/14/2025 2:02 PM EDT [facility] HCO3, Arterial 21.0(L) 22 - 26 mmol/L 06/14/2025 2:02 PM EDT [facility] Total Hemoglobin, Arterial, Whole Blood 14.5 13.7 - 17.5 g/dL 06/14/2025 2:02 PM EDT [facility] Hematocrit, Arterial 44.0 40 - 51.0 % 06/14/2025 2:02 PM EDT [facility] Sodium, Arterial 136 136 - 145 mmol/L 06/14/2025 2:02 PM EDT [facility] Potassium, Arterial 3.4(L) 3.6 - 4.9 mmol/L 06/14/2025 2:02 PM EDT [facility] Chloride, Whole Blood 105 97 - 107 mmol/L 06/14/2025 2:02 PM EDT [facility] Glucose, Arterial 138(H) 74 - 99 mg/dL 06/14/2025 2:02 PM EDT [facility] Ionized Calcium, Arterial 4.9 4.6 - 5.1 mg/dL 06/14/2025 2:02 PM EDT [facility] Lactate, Arterial 4.2(H) 0.5 - 1.6 mmol/L 06/14/2025 2:02 PM EDT [facility] Body Temperature 37.0 Celsius 06/14/2025 2:02 PM EDT [facility] pH, Temp Corrected, Arterial 7.35 7.31 - 7.42 06/14/2025 2:02 PM EDT [facility] pCO2, Temp Corrected, Arterial 38 32 - 45 mm Hg 06/14/2025 2:02 PM EDT [facility] pO2, Temp Corrected, Arterial 376 >80 mm Hg 06/14/2025 2:02 PM EDT [facility] Lathe Hand ID Ricki [email or web address] 06/14/2025 2:02 PM EDT [facility] Blood Whole blood specimen / Unknown 06/14/2025 2:00 PM EDT 06/14/2025 2:02 PM EDT us Phillip Clark MD LAB POINT OF CARE TE ST DOCKED DEVICE UNSOLICITED RESULTS Final Result Performing Organization Address City/State/[facility] Co de Phone Number [facility] [address] [place] [address] * (ABNORMAL) POCT arterial blood gas gem (06/14/2025 1:22 PM EDT) pH, Arterial 7.34 7.31 - 7.42 06/14/2025 1:23 PM EDT [facility] pCO2, Arterial 41 32 - 45 mm Hg 06/14/2025 1:23 PM EDT [facility] pO2, Arterial 518 >80 mm Hg 06/14/2025 1:23 PM EDT [facility] SO2, Arterial 100(H) 94 - 98 % 06/14/2025 1:23 PM EDT [facility] Base Excess, Arterial -3.5(L) -2 - 3 mmol/L 06/14/2025 1:23 PM EDT [facility] HCO3, Arterial 22.1 22 - 26 mmol/L 06/14/2025 1:23 PM EDT [facility] Total Hemoglobin, Arterial, Whole Blood 13.2(L) 13.7 - 17.5 g/dL 06/14/2025 1:23 PM EDT [facility] [facility] Hematocrit, Arterial 40.0 40 - 51.0 % 06/14/2025 1:23 PM EDT [facility] Sodium, Arterial 139 136 - 145 mmol/L 06/14/2025 1:23 PM EDT [facility] Potassium, Arterial 3.3(L) 3.6 - 4.9 mmol/L 06/14/2025 1:23 PM EDT [facility] Chloride, Whole Blood 104 97 - 107 mmol/L 06/14/2025 1:23 PM EDT [facility] Glucose, Arterial 137(H) 74 - 99 mg/dL 06/14/2025 1:23 PM EDT [facility] Ionized Calcium, Arterial 4.2(L) 4.6 - 5.1 mg/dL 06/14/2025 1:23 PM EDT [facility] Lactate, Arterial 3.0(H) 0.5 - 1.6 mmol/L 06/14/2025 1:23 PM EDT [facility] Body Temperature 37.0 Celsius 06/14/2025 1:23 PM EDT [facility] pH, Temp Corrected, Arterial 7.34 7.31 - 7.42 06/14/2025 1:23 PM EDT [facility] pCO2, Temp Corrected, Arterial 41 32 - 45 mm Hg 06/14/2025 1:23 PM EDT [facility] pO2, Temp Corrected, Arterial 518 >80 mm Hg 06/14/2025 1:23 PM EDT [facility] Lathe Hand ID Ricki Zamarripa 06/14/2025 1:23 PM EDT [facility] Blood Whole blood specimen / Unknown 06/14/2025 1:22 PM EDT 06/14/2025 1:23 PM EDT us Phillip Clark MD LAB POINT OF CARE TE ST DOCKED DEVICE UNSOLICITED RESULTS Final Result [facility] [address] [place] [address] * (ABNORMAL) POCT arterial blood gas gem (06/14/2025 12:52 PM EDT) pH, Arterial 7.40 7.31 - 7.42 06/14/2025 12:54 PM EDT [facility] pCO2, Arterial 35 32 - 45 mm Hg 06/14/2025 12:54 PM EDT [facility] pO2, Arterial 399 >80 mm Hg 06/14/2025 12:54 PM EDT [facility] SO2, Arterial 100(H) 94 - 98 % 06/14/2025 12:54 PM EDT [facility] Base Excess, Arterial -2.6(L) -2 - 3 mmol/L 06/14/2025 12:54 PM EDT [facility] HCO3, Arterial 21.7(L) 22 - 26 mmol/L 06/14/2025 12:54 PM EDT [facility] Total Hemoglobin, Arterial, Whole Blood 11.7(L) 13.7 - 17.5 g/dL 06/14/2025 12:54 PM T [facility] Hematocrit, Arterial 35.0(L) 40 - 51.0 % 06/14/2025 12:54 PM T [facility] Sodium, Arterial 134(L) 136 - 145 mmol/L 06/14/2025 12:54 PM T [facility] Potassium, Arterial 4.2 3.6 - 4.9 mmol/L 06/14/2025 12:54 PM T [facility] Chloride, Whole Blood 107 97 - 107 mmol/L 06/14/2025 12:54 PM T [facility] Glucose, Arterial 148(H) 74 - 99 mg/dL 06/14/2025 12:54 PM T [facility] Ionized Calcium, Arterial 4.1(L) 4.6 - 5.1 mg/dL 06/14/2025 12:54 PM T [facility] Lactate, Arterial 2.2(H) 0.5 - 1.6 mmol/L 06/14/2025 12:54 PM T [facility] Body Temperature 37.0 Celsius 06/14/2025 12:54 PM T [facility] pH, Temp Corrected, Arterial 7.40 7.31 - 7.42 06/14/2025 12:54 PM EDT [facility] pCO2, Temp Corrected, Arterial 35 32 - 45 mm Hg 06/14/2025 12:54 PM EDT [facility] pO2, Temp Corrected, Arterial 399 >80 mm Hg 06/14/2025 12:54 PM EDT [facility] Lathe Hand ID LuísJean Claude 06/14/2025 12:54 PM EDT [facility] Blood Whole blood specimen / Unknown 06/14/2025 12:52 PM EDT 06/14/2025 12:54 PM EDT Phillip Clark MD LAB POINT OF CARE TE ST DOCKED DEVICE UNSOLICITED RESULTS Final Result Performing Organization Address City/[facility] Co de Phone Number [facility] [address] [place] [address] * POCT ACT (06/14/2025 12:43 PM EDT) ACT+ (HIGH RANGE) 98 68 - 600 Seconds 06/14/2025 12:49 PM EDT [facility] Lathe Hand ID Vick Dupont 06/14/2025 12:49 PM EDT [facility] ACT Device ID [id number] 06/14/2025 12:49 PM EDT [facility] Comment 06/14/2025 12:49 PM EDT [facility] Comment: ACT performed by [...] UNSOLICITED RESULTS Final Result Performing Organization Address City/[facility] Co de Phone Number [facility] [address] LAB [address] [place] [address] * (ABNORMAL) POCT arterial blood gas gem (06/14/2025 12:16 PM EDT) pH, Arterial 7.42 7.31 - 7.42 06/14/2025 12:19 PM EDT [facility] pCO2, Arterial 36 32 - 45 mm Hg 06/14/2025 12:19 PM EDT [facility] pO2, Arterial 358 >80 mm Hg 06/14/2025 12:19 PM EDT [facility] SO2, Arterial 99(H) 94 - 98 % 06/14/2025 12:19 PM EDT [facility] Base Excess, Arterial -0.8 -2 - 3 mmol/L 06/14/2025 12:19 PM EDT [facility] HCO3, Arterial 23.4 22 - 26 mmol/L 06/14/2025 12:19 PM EDT [facility] Total Hemoglobin, Arterial, Whole Blood 11.3(L) 13.7 - 17.5 g/dL 06/14/2025 12:19 PM EDT [facility] Hematocrit, Arterial 34.0(L) 40 - 51.0 % 06/14/2025 12:19 PM EDT [facility] Sodium, Arterial 134(L) 136 - 145 mmol/L 06/14/2025 12:19 PM EDT [facility] Potassium, Arterial 5.7(H) 3.6 - 4.9 mmol/L 06/14/2025 12:19 PM EDT [facility] Chloride, Whole Blood 105 97 - 107 mmol/L 06/14/2025 12:19 PM EDT [facility] Glucose, Arterial 119(H) 74 - 99 mg/dL 06/14/2025 12:19 PM EDT [facility] Ionized Calcium, Arterial 4.0(L) 4.6 - 5.1 mg/dL 06/14/2025 12:19 PM EDT [facility] Lactate, Arterial 1.6 0.5 - 1.6 mmol/L 06/14/2025 12:19 PM EDT [facility] Body Temperature 37.0 Celsius 06/14/2025 12:19 PM EDT [facility] pH, Temp Corrected, Arterial 7.42 7.31 - 7.42 06/14/2025 12:19 PM EDT [facility] pCO2, Temp Corrected, Arterial 36 32 - 45 mm Hg 06/14/2025 12:19 PM EDT [facility] pO2, Temp Corrected, Arterial 358 >80 mm Hg 06/14/2025 12:19 PM EDT [facility] Lathe Hand ID Cresencio, Vick 06/14/2025 12:19 PM EDT [facility] Blood Whole blood specimen / Unknown 06/14/2025 12:16 PM EDT 06/14/2025 12:19 PM EDT us Phillip Clark MD LAB POINT OF CARE TE ST DOCKED DEVICE UNSOLICITED RESULTS Final Result [facility] [address] [place] [address] * (ABNORMAL) POCT arterial blood gas gem (06/14/2025 12:06 PM EDT) pH, Arterial 7.39 7.31 - 7.42 06/14/2025 12:09 PM EDT [facility] pCO2, Arterial 40 32 - 45 mm Hg 06/14/2025 12:09 PM EDT [facility] pO2, Arterial 378 >80 mm Hg 06/14/2025 12:09 PM EDT [facility] SO2, Arterial 100(H) 94 - 98 % 06/14/2025 12:09 PM EDT [facility] Base Excess, Arterial -0.7 -2 - 3 mmol/L 06/14/2025 12:09 PM EDT [facility] HCO3, Arterial 24.2 22 - 26 mmol/L 06/14/2025 12:09 PM EDT [facility] Total Hemoglobin, Arterial, Whole Blood 11.5(L) 13.7 - 17.5 g/dL 06/14/2025 12:09 PM EDT [facility] Hematocrit, Arterial 35.0(L) 40 - 51.0 % 06/14/2025 12:09 PM EDT [facility] Sodium, Arterial 134(L) 136 - 145 mmol/L 06/14/2025 12:09 PM EDT [facility] Potassium, Arterial 5.0(H) 3.6 - 4.9 mmol/L 06/14/2025 12:09 PM EDT [facility] Chloride, Whole Blood 105 97 - 107 mmol/L 06/14/2025 12:09 PM EDT [facility] Glucose, Arterial 123(H) 74 - 99 mg/dL 06/14/2025 12:09 PM EDT [facility] Ionized Calcium, Arterial 4.2(L) 4.6 - 5.1 mg/dL 06/14/2025 12:09 PM EDT [facility] Lactate, Arterial 1.2 0.5 [...] Hg 06/14/2025 12:09 PM EDT [facility] Lathe Hand ID Vick Dupont 06/14/2025 12:09 PM EDT [facility] Blood Whole blood specimen / Unknown 06/14/2025 12:06 PM EDT 06/14/2025 12:09 PM EDT us Phillip Clark MD LAB POINT OF CARE TE ST DOCKED DEVICE UNSOLICITED RESULTS Final Result Performing Organization Address City/State/[facility] Co de Phone Number [facility] [address] [place] [address] * (ABNORMAL) QPLUS (06/14/2025 11:55 AM EDT) [...] Seconds 06/14/2025 12:12 PM EDT [facility] Lathe Hand ID Ricki Zamarripa 06/14/2025 12:12 PM EDT [facility] Device ID [id number] 06/14/2025 12:12 PM EDT [facility] Whole Blood 06/14/2025 11:5 5 AM EDT 06/14/2025 12:12 PM EDT Narrative [facility] - 06/14/2025 12:[address]: No Clot Detected us Phillip Clark MD LAB POINT OF CARE TE ST DOCKED DEVICE UNSOLICITED RESULTS Final Result Performing Organization Address City/[facility] de Phone Number [facility] [address] [place] [address] * POCT ACT (06/14/2025 11:54 AM EDT) ACT+ (HIGH RANGE) 510 68 - 600 Seconds 06/14/2025 12:07 PM EDT [facility] Lathe Hand ID Cresencio Gene 06/14/2025 12:07 PM EDT [facility] ACT Device ID [id number] 06/14/2025 12:07 PM EDT [facility] Comment 06/14/2025 12:07 PM EDT [facility] Comment: ACT performed by [...] UNSOLICITED RESULTS Final Result Performing Organization Address [facility] de Phone Number [facility] [address] LAB [address] [place] [address] * (ABNORMAL) POCT arterial blood gas gem (06/14/2025 11:33 AM EDT) pH, Arterial 7.37 7.31 - 7.42 06/14/2025 11:35 AM EDT [facility] pCO2, Arterial 43 32 - 45 mm Hg 06/14/2025 11:35 AM EDT [facility] pO2, Arterial 380 >80 mm Hg 06/14/2025 11:35 AM EDT [facility] SO2, Arterial 99(H) 94 - 98 % 06/14/2025 11:35 AM [facility] Base Excess, Arterial -0.5 -2 - 3 mmol/L 06/14/2025 11:35 AM [facility] HCO3, Arterial 24.9 22 - 26 mmol/L 06/14/2025 11:35 AM [facility] Total Hemoglobin, Arterial, Whole Blood 11.5(L) 13.7 - 17.5 g/dL 06/14/2025 11:35 AM [facility] Hematocrit, Arterial 35.0(L) 40 - 51.0 % 06/14/2025 11:35 AM [facility] Sodium, Arterial 134(L) 136 - 145 mmol/L 06/14/2025 11:35 AM [facility] Potassium, Arterial 5.6(H) 3.6 - 4.9 mmol/L 06/14/2025 11:35 AM [facility] Chloride, Whole Blood 103 97 - 107 mmol/L 06/14/2025 11:35 AM [facility] Glucose, Arterial 123(H) 74 - 99 mg/dL 06/14/2025 11:35 AM [facility] Ionized Calcium, Arterial 4.2(L) 4.6 - 5.1 mg/dL 06/14/2025 11:35 AM [facility] Lactate, Arterial 1.0 0.5 - 1.6 mmol/L 06/14/2025 11:35 AM [facility] Body Temperature 37.0 Celsius 06/14/2025 11:35 AM [facility] pH, Temp Corrected, Arterial 7.37 7.31 - 7.42 06/14/2025 11:35 AM [facility] pCO2, Temp Corrected, Arterial 43 32 - 45 mm Hg 06/14/2025 11:35 AM [facility] pO2, Temp Corrected, Arterial 380 >80 mm Hg 06/14/2025 11:35 AM [facility] Lathe Hand ID Cresencio, Vick 06/14/2025 11:35 AM [facility] Blood Whole blood specimen / Unknown 06/14/2025 11:33 AM EDT 06/14/2025 11:35 AM EDT us Phillip Clark MD LAB POINT OF CARE TE ST DOCKED DEVICE UNSOLICITED RESULTS Final Result Performing Organization Address [facility] Co de Phone Number [facility] [address] [place] [address] * POCT ACT (06/14/2025 11:24 AM EDT) ACT+ (HIGH RANGE) 520 68 - 600 Seconds 06/14/2025 11:37 AM EDT [facility] Lathe Hand ID Vick Dupont 06/14/2025 11:37 AM EDT [facility] ACT Device ID [id number] 06/14/2025 11:37 AM EDT [facility] Comment 06/14/2025 11:37 AM EDT [facility] Comment: ACT performed by [...] UNSOLICITED RESULTS Final Result Performing Organization Address [facility] de Phone Number [facility] [address] [place], [place] [id number] [place] [address] LAB [address] [place] [address] * (ABNORMAL) POCT arterial blood gas gem (06/14/2025 11:03 AM EDT) pH, Arterial 7.40 7.31 - 7.42 06/14/2025 11:04 AM EDT [facility] pCO2, Arterial 41 32 - 45 mm Hg 06/14/2025 11:04 AM EDT [facility] pO2, Arterial 406 >80 mm Hg 06/14/2025 11:04 AM EDT [facility] SO2, Arterial 100(H) 94 - 98 % 06/14/2025 11:04 AM EDT [facility] Base Excess, Arterial 0.5 -2 - 3 mmol/L 06/14/2025 11:04 AM EDT [facility] HCO3, Arterial 25.4 22 - 26 mmol/L 06/14/2025 11:04 AM T [facility] Total Hemoglobin, Arterial, Whole Blood 11.9(L) 13.7 - 17.5 g/dL 06/14/2025 11:04 AM T [facility] Hematocrit, Arterial 36.0(L) 40 - 51.0 % 06/14/2025 11:04 AM EDT [facility] Sodium, Arterial 133(L) 136 - 145 mmol/L 06/14/2025 11:04 AM T [facility] Potassium, Arterial 5.3(H) 3.6 - 4.9 mmol/L 06/14/2025 11:04 AM T [facility] Chloride, Whole Blood 103 97 - 107 mmol/L 06/14/2025 11:04 AM T [facility] Glucose, Arterial 121(H) 74 - 99 mg/dL 06/14/2025 11:04 AM T [facility] Ionized Calcium, Arterial 4.2(L) 4.6 - 5.1 mg/dL 06/14/2025 11:04 AM [facility] Lactate, Arterial 1.0 0.5 - 1.6 mmol/L 06/14/2025 11:04 AM T [facility] Body Temperature 37.0 Celsius 06/14/2025 11:04 AM T [facility] pH, Temp Corrected, Arterial 7.40 7.31 - 7.42 06/14/2025 11:04 AM [facility] pCO2, Temp Corrected, Arterial 41 32 - 45 mm Hg 06/14/2025 11:04 AM T [facility] pO2, Temp Corrected, Arterial 406 >80 mm Hg 06/14/2025 11:04 AM T [facility] Lathe Hand ID Cresencio, Vick 06/14/2025 11:04 AM T [facility] Blood Whole blood specimen / Unknown 06/14/2025 11:03 AM EDT 06/14/2025 11:04 AM EDT us Phillip Clark MD LAB POINT OF CARE TE ST DOCKED DEVICE UNSOLICITED RESULTS Final Result [facility] [address] [place] [address] * POCT ACT (06/14/2025 10:57 AM EDT) ACT+ (HIGH RANGE) 569 68 - 600 Seconds 06/14/2025 11:09 AM EDT [facility] Lathe Hand ID Vick Dupont 06/14/2025 11:09 AM EDT [facility] ACT Device ID [id number] 06/14/2025 11:09 AM EDT [facility] Comment 06/14/2025 11:09 AM EDT [facility] Comment: ACT performed by [...] UNSOLICITED RESULTS Final Result Performing Organization Address [facility] Co de Phone Number [facility] [address] LAB [address] [place] [address] * (ABNORMAL) POCT arterial blood gas gem (06/14/2025 10:33 AM EDT) pH, Arterial 7.39 7.31 - 7.42 06/14/2025 10:34 AM EDT [facility] pCO2, Arterial 41 32 - 45 mm Hg 06/14/2025 10:34 AM EDT [facility] pO2, Arterial 349 >80 mm Hg 06/14/2025 10:34 AM EDT [facility] SO2, Arterial 99(H) 94 - 98 % 06/14/2025 10:34 AM EDT [facility] Base Excess, Arterial -0.2 -2 - 3 mmol/L 06/14/2025 10:34 AM EDT [facility] HCO3, Arterial 24.8 22 - 26 mmol/L 06/14/2025 10:34 AM EDT [facility] Total Hemoglobin, Arterial, Whole Blood 10.9(L) 13.7 - 17.5 g/dL 06/14/2025 10:34 AM EDT [facility] Hematocrit, Arterial 33.0(L) 40 - 51.0 % 06/14/2025 10:34 AM EDT [facility] Sodium, Arterial 135(L) 136 - 145 mmol/L 06/14/2025 10:34 AM EDT [facility] Potassium, Arterial 4.8 3.6 - 4.9 mmol/L 06/14/2025 10:34 AM EDT [facility] Chloride, Whole Blood 103 97 - 107 mmol/L 06/14/2025 10:34 AM EDT [facility] Glucose, Arterial 116(H) 74 - 99 mg/dL 06/14/2025 10:34 AM EDT [facility] Ionized Calcium, Arterial 4.1(L) 4.6 - 5.1 mg/dL 06/14/2025 10:34 AM EDT [facility] Lactate, Arterial 1.3 0.5 - 1.6 mmol/L 06/14/2025 10:34 AM EDT [facility] Body Temperature 37.0 Celsius 06/14/2025 10:34 AM EDT [facility] pH, Temp Corrected, Arterial 7.39 7.31 - 7.42 06/14/2025 10:34 AM EDT [facility] pCO2, Temp Corrected, Arterial 41 32 - 45 mm Hg 06/14/2025 10:34 AM EDT [facility] pO2, Temp Corrected, Arterial 349 >80 mm Hg 06/14/2025 10:34 AM EDT [facility] Lathe Hand ID Vick Dupont 06/14/2025 10:34 AM EDT [facility] Blood Whole blood specimen / Unknown 06/14/2025 10:33 AM EDT 06/14/2025 10:34 AM EDT us Phillip Clark MD LAB POINT OF CARE TE ST DOCKED DEVICE UNSOLICITED RESULTS Final Result [facility] [address] [place] [address] * (ABNORMAL) POCT ACT (06/14/2025 10:26 AM EDT) ACT+ (HIGH RANGE) >600(H) 68 - 600 Seconds 06/14/2025 10:40 AM EDT [facility] Lathe Hand ID Vick Dupont 06/14/2025 10:40 AM EDT [facility] ACT Device ID [id number] 06/14/2025 10:40 AM EDT [facility] Comment 06/14/2025 10:40 AM EDT [facility] Comment: ACT performed by [...] UNSOLICITED RESULTS Final Result Performing Organization Address City/State/[facility] Co de Phone Number [facility] [address] [place] [address] * Surgical Pathology Exam (06/14/2025 10:18 AM EDT) Case Report Surgical Pathology Case: [id number] Authorizing Provider: Phillip Clark MD Collected: 06/14/2025 1018 Ordering Location: [facility] Received: 06/14/2025 1413 Pathologist: Beth Lake MD Specimen: Heart, aortic valve leaflets 06/15/2025 11:44 AM EDT [facility] Final Diagnosis A. AORTIC VALVE LEAFLETS, REPLACEMENT: - FIBROSIS AND MYXOID DEGENERATION. 06/15/2025 11:44 AM EDT [facility] at 1144 EDT Clinical Information Severe aortic regurgitation [I35.1] 06/15/2025 11:44 AM EDT [facility] Gross Description A. AORTIC VALVE LEAFLETS Received fresh and placed in formalin labeled aortic valve leaflets are 2 white-montez soft cardiac leaflets ranging in size from 2.5-4.0 cm in greatest dimension. Fund Accountant sections are submitted in cassette A1. Cold Time: 3h 55m April Santos 06/15/2025 11:44 AM EDT [facility] Tissue Heart structure / Unknown 06/14/2025 10:18 AM EDT 06/14/2025 2:13 PM EDT Comment:Pre-op diagnosis: Severe aortic regurgitation [I35.1] us Phillip Clark MD LAB PATHOLOGY ORDERABLES Fin al Result [facility] [address] [place] [address] * (ABNORMAL) POCT arterial blood gas gem (06/14/2025 10:08 AM EDT) pH, Arterial 7.40 7.31 - 7.42 06/14/2025 10:17 AM EDT [facility] pCO2, Arterial 40 32 - 45 mm Hg 06/14/2025 10:17 AM EDT [facility] pO2, Arterial 410 >80 mm Hg 06/14/2025 10:17 AM EDT [facility] SO2, Arterial 100(H) 94 - 98 % 06/14/2025 10:17 AM EDT [facility] Base Excess, Arterial 0.0 -2 - 3 mmol/L 06/14/2025 10:17 AM EDT [facility] HCO3, Arterial 24.8 22 - 26 mmol/L 06/14/2025 10:17 AM EDT [facility] Total Hemoglobin, Arterial, Whole Blood 10.1(L) 13.7 - 17.5 g/dL 06/14/2025 10:17 AM EDT [facility] Hematocrit, Arterial 30.0(L) 40 - 51.0 % 06/14/2025 10:17 AM EDT [facility] Sodium, Arterial 133(L) 136 - 145 mmol/L 06/14/2025 10:17 AM EDT [facility] Potassium, Arterial 4.7 3.6 - 4.9 mmol/L 06/14/2025 10:17 AM EDT [facility] Chloride, Whole Blood 104 97 - 107 mmol/L 06/14/2025 10:17 AM EDT [facility] Glucose, Arterial 122(H) 74 - 99 mg/dL 06/14/2025 10:17 AM EDT [facility] Ionized Calcium, Arterial 3.9(L) 4.6 - 5.1 mg/dL 06/14/2025 10:17 AM EDT [facility] Lactate, Arterial 1.5 0.5 - 1.6 mmol/L 06/14/2025 10:17 AM EDT [facility] Body Temperature 37.0 Celsius 06/14/2025 10:17 AM EDT [facility] pH, Temp Corrected, Arterial 7.40 7.31 - 7.42 06/14/2025 10:17 AM EDT [facility] pCO2, Temp Corrected, Arterial 40 32 - 45 mm Hg 06/14/2025 10:17 AM EDT [facility] pO2, Temp Corrected, Arterial 410 >80 mm Hg 06/14/2025 10:17 AM EDT [facility] Lathe Hand ID Vick Dupont 06/14/2025 10:17 AM EDT [facility] Blood Whole blood specimen / Unknown 06/14/2025 10:08 AM EDT 06/14/2025 10:17 AM EDT Phillip Clark MD LAB POINT OF CARE TE ST DOCKED DEVICE UNSOLICITED RESULTS Final Result Performing Organization Address City/State/[facility] Co de Phone Number [facility] [address] [place] [address] * (ABNORMAL) POCT ACT (06/14/2025 10:04 AM EDT) ACT+ (HIGH RANGE) >600(H) 68 - 600 Seconds 06/14/2025 10:19 AM EDT [facility] Lathe Hand ID Vick Dupont 06/14/2025 10:19 AM EDT [facility] ACT Device ID [id number] 06/14/2025 10:19 AM EDT [facility] Comment 06/14/2025 10:19 AM EDT [facility] Comment: ACT performed by [...] UNSOLICITED RESULTS Final Result Performing Organization Address [facility] de Phone Number [facility] [address] [facility] [address] [place] [address] * POCT ACT (06/14/2025 8:13 AM EDT) ACT+ (HIGH RANGE) 90 68 - 600 Seconds 06/14/2025 8:20 AM EDT [facility] Lathe Hand ID Kevin Hernandez 06/14/2025 8:20 AM EDT [facility] ACT Device ID [id number] 06/14/2025 8:20 AM EDT [facility] Comment 06/14/2025 8:20 AM EDT [facility] Comment: ACT performed by [...] UNSOLICITED RESULTS Final Result Performing Organization Address [facility] Co de Phone Number [facility] [address] [facility] [address] [place] [address] * (ABNORMAL) POCT arterial blood gas gem (06/14/2025 8:13 AM EDT) pH, Arterial 7.38 7.31 - 7.42 06/14/2025 8:15 AM EDT [facility] pCO2, Arterial 40 32 - 45 mm Hg 06/14/2025 8:15 AM EDT [facility] pO2, Arterial 91 >80 mm Hg 06/14/2025 8:15 AM [facility] SO2, Arterial 99(H) 94 - 98 % 06/14/2025 8:15 AM [facility] Base Excess, Arterial -1.3 -2 - 3 mmol/L 06/14/2025 8:15 AM [facility] HCO3, Arterial 23.7 22 - 26 mmol/L 06/14/2025 8:15 AM [facility] Total Hemoglobin, Arterial, Whole Blood 14.5 13.7 - 17.5 g/dL 06/14/2025 8:15 AM [facility] Hematocrit, Arterial 44.0 40 - 51.0 % 06/14/2025 8:15 AM [facility] Sodium, Arterial 135(L) 136 - 145 mmol/L 06/14/2025 8:15 AM [facility] Potassium, Arterial 4.1 3.6 - 4.9 mmol/L 06/14/2025 8:15 AM [facility] Chloride, Whole Blood 103 97 - 107 mmol/L 06/14/2025 8:15 AM [facility] Glucose, Arterial 95 74 - 99 mg/dL 06/14/2025 8:15 AM [facility] Ionized Calcium, Arterial 4.7 4.6 - 5.1 mg/dL 06/14/2025 8:15 AM [facility] Lactate, Arterial 0.8 0.5 - 1.6 mmol/L 06/14/2025 8:15 AM [facility] Body Temperature 37.0 Celsius 06/14/2025 8:15 AM [facility] pH, Temp Corrected, Arterial 7.38 7.31 - 7.42 06/14/2025 8:15 AM [facility] pCO2, Temp Corrected, Arterial 40 32 - 45 mm Hg 06/14/2025 8:15 AM [facility] pO2, Temp Corrected, Arterial 91 >80 mm Hg 06/14/2025 8:15 AM [facility] Lathe Hand ID Lb Coreas 06/14/2025 8:15 AM [facility] Blood Whole blood specimen / Unknown 06/14/2025 8:13 AM EDT 06/14/2025 8:15 AM EDT Phillip Clark MD LAB POINT OF CARE TE ST DOCKED DEVICE UNSOLICITED RESULTS Final Result Performing Organization Address City/[facility] Co de Phone Number [facility] [address] [place] [address] * Type and Screen (06/14/2025 6:27 AM [...] ORDERABL ES Final Result Performing Organization Address [facility] [place] Phone Number BLOOD BANK [address] [place] [address] * POCT glucose meter (06/14/2025 6:23 AM EDT) [facility] [address] POCT Glucose 93 74 - 99 mg/dL [...] 06/14/2025 6:24 AM EDT [facility] Lathe Hand ID Kassi Sinha 06/14/2025 6:24 AM EDT [facility] Device ID [id number] 06/14/2025 6:24 AM EDT [facility] Specimen Type POC Venous 06/14/2025 6:24 AM EDT [facility] Blood Venous blood specimen / Unknown 06/14/2025 6:23 AM EDT 06/14/2025 6:24 AM EDT us Phillip Clark MD LAB POINT OF CARE TE ST DOCKED DEVICE UNSOLICITED RESULTS Final Result [facility] [address] [place] [address] documented in this encounter Visit Diagnoses Diagnosis Aortic valve regurgitation- Primary Aortic valve disorders Severe aortic regurgitation Other secondary hypertension S/P AVR BMI 30.0-30.9,adult High cholesterol Pure hypercholesterolemia Hypertension Unspecified essential hypertension CAD (coronary artery disease) Coronary atherosclerosis of unspecified type of vessel, [place] or graft History of coronary angioplasty with [...] Subcutaneous, Every 12 hours, First dose on [facility] 06/16/25 at 2100, Until Discontinued, Routine [...] comment - Comment: dose given by night supervisor rn @ [address] [place], [place] [address]Daiana instructed jingle writer to hold 0900 dose)2003 (Given - [...] documented as of this encounter Care Teams [employer] 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
--- OUTSIDE RECORDS SUMMARY | 2025-06-14 07:45 | XMS_ITS | Encounter Summary ---
Author Organization [facility] Address [address] [place] [id number] Care Team Providers Care Quarry Supervisor Name Role Phone Kmaran Singh MD Primary Care Provider [phone] Reason for Visit * Auth/Cert (Routine) Specialty Diagnoses / Procedures Referred By Nathalia t Referred To Contact Diagnoses Severe aortic regurgitation Severe aortic regurgitation [I35.1] Procedures MI -AORT GRF W/CARD BYP F/AORTIC DISSECTION AORTIC ROOT RECONSTRUCTION Phillip Clark MD [address] [address] [address] Phone: tel: fax: [facility] [address] [place] [address] Phone: tel: Referral ID Status Reason Start Date Expiration Date Visits Re quested Visits Authorized [id number] 1 1 Encounter Details Date Type Department Care Team (Late st Contact Info) Description 06/14/2025 7:45 AM EDT - 06/14/2025 8:15 PM EDT Surgery [facility] [address] [place] [id number] Phillip Clark MD [address] [facility] [address] [place] [address] Aortic valve replacement [27978 (CPT )] Surgery Details Date/Time Status Location [...] in the past [address] [facility], were you homeless or living in a jail (including now)? No 06/15/2025 [facility] Utilities Answer Date Recorded In the past 12 months has th e [employer], gas, oil, or water [employer] threatened to shut off services in your [...] for loose stool 20 capsule 06/20/2025 5 empagliflozin (Jardiance) 10 MG Take [...] to attend at [facility]. Sebastian will contact Mr. Forrest to discuss and [...] education and support. Patient is patient interested in cardiac rehab?: is interested in attending a cardiac rehabilitation program. 2. Eligibility: Heart valve surgery 3. Exceptions/exclusions: [facility] Cardiac Rehab Exclusions: None 4. Referral: [facility] Cardiac Rehab Referral: Patient agreed with referral to the cardiac rehabilitation program at [facility] in [place], [place], phone number [phone]. 5. Information sent: Information Sent: Appropriate information will be sent to the receiving cardiac rehabilitation program.: * Progress Notes - Oumou Berger - 06/20/2025 10:15 AM EDT Case Management Discharge Note Bradley Forrest 69 y.o. male CSN: [id number] Admission: 06/14/2025 5:18 AM Primary Problem: Aortic valve regurgitation Primary Watershed Program Manager: Primary Caregiver: Self Assistance Available at Discharge: Current Outpatient/Agency/Support Group: DME Availability of Care Givers (#Hours): Other (comment) (As needed) Family/Watershed Program Manager(s) Willingness Assessed to care for patient at home: Yes Family/Watershed Program Manager(s) Readiness Assessed to care for patient at [...] Recieved By: patient Follow-up: Jolynn Pollard APRN [facility] Cardiology [address] [place] [address] [address]av[address] [id number] Go on 08/22/2025 Your cardiology appointment is on August 22 at 11am Please arrive 15 minutes early and bring UPDATED medication list. [address] [facility] [phone] Go on 06/22/2025 Your first appointment for your Warfarin/Coumadin management is this FridayJune 22 at 11:30am. Please report to [facility] front admission desk and tell them you are checking in to the Pharmacy Anticoagulation Clinic. The coupon clerk will call the pharmacist who will meet you in the lobby and escort you to the clinic. Please bring all medications you are taking and your insurance card. If you have any issues please call [phone] ext: [phone] and then choose option 2. Discharge Transportation: [...] transport. Covering RNCM ordered rollator from [facility] to be delivered to bedside. No further SW concerns identified at this time. SW will continue to remain available and will follow up with DC planning and needs as appropriate. DIMPLE Osullivan * Progress Notes - Libia Stevenson, PharmD - 06/20/2025 8:32 AM EDT Antithrombosis [...] Plan Anticoagulation Plan Warfarin Pharmacist Managed?: No [facility] Warfarin Dosing Protocol Followed?: No Reason for Protocol Departure: CT Surgery Bridging Agent in Conjunction With Warfarin? : No INR Monitoring Frequency: Monitor INR daily Patient Education : Complete and documented Warfarin dosing and adjustment per CT surgery provider. Transitions of Care Outpatient provider managing warfarin after [facility] discharge: TBD - possibly clinic Recommended date for outpatient INR assessment: TBD - of note, enoxparin copay $0 for 7 day supply Will continue to follow patient's clinical progress daily. Libia Stevenson PharmD, BCCP Clinical Pharmacist - Cardiothoracic Surgery Available via [employer] * Progress Notes - Phillip Clark MD [...] with patient and family and agreeable Taken 06/19/2025 034 by Lori Molina RN Plan of Care [...] Flowsheets (Taken 06/19/20251704 by Vicente Hussein RN) Sensory Stimulation Regulation: television on Complementary [...] Ongoing, Progressing Intervention: Promote Activity and Functional Oliver Flowsheets (Taken 06/19/20251704 by Vicente Hussein RN) Activity Assistance Provided: assistance, stand-by Adaptive Equipment Use: use encouraged Self-Care Promotion: independence encouraged Problem: Self-Care Deficit Goal: Improved Ability to Complete Activities of Daily Living Outcome: Ongoing, Progressing Intervention: Promote Activity and Functional Oliver Flowsheets (Taken 06/19/20251704 by Vicente Hussein RN) [...] acknowledged Goal: Absence of Bleeding 06/19/20251704 by Vicnete Hussein RN Outcome: Ongoing, Progressing 06/19/20251704 by [...] MAR) Complementary Therapy: essential oils utilized Taken 06/19/2025 0345 by Lori Molina RN Diversional Activities: television Goal: Nausea and Vomiting Relief 06/19/20251704 by Vicente Hussein RN Outcome: Ongoing, Progressing 06/19/20251704 by Vicente Hsusein RN Outcome: Ongoing, Progressing Intervention: Prevent or [...] Ongoing, Progressing Intervention: Promote Activity and Functional Oliver Flowsheets (Taken 06/19/20251704) Activity Assistance Provided: assistance, [...] Ongoing, Progressing Intervention: Promote Activity and Functional Oliver Flowsheets (Taken 06/19/20251704) Activity Assistance Provided: assistance, stand-by Adaptive Equipment Use: use encouraged Self-Care Promotion: independence encouraged * Progress Notes - Prashant Aguilar, FrankD - 06/19/2025 1:22 PM EDT Antithrombosis Monitoring: Warfarin Bradley oFrrest is a 69 y.o. male who has [...] Plan Anticoagulation Plan Warfarin Pharmacist Managed?: No [facility] Warfarin Dosing Protocol Followed?: No Reason for Protocol Departure: CT Surgery Bridging Agent in Conjunction With Warfarin? : No Goal PTT/anti-Xa: 2.5-3.5 INR Monitoring Frequency: Monitor INR daily Patient Education : Complete and documented Warfarin dosing and adjustment per CT surgery provider. Transitions of Care Outpatient provider managing warfarin after [facility] discharge: TBD - possibly [place] [facility] [...] rhythm - continue warfarin CT surgery pager [phone] [1] acetaminophen, 650 mg, Oral, q4h DEMETRIUS [...] Care Review Outcome: Ongoing, Progressing Flowsheets Taken 06/19/20255 Progress: improving Plan of Care Reviewed With: [...] Airway Secretion Clearance Flowsheets Taken 06/19/2025344 by Loir Molina RN Patient Tolerance (IS): good Administration [...] Ongoing, Progressing Intervention: Promote Activity and Functional Oliver Flowsheets (Taken 06/19/2025344) Activity Assistance Provided: assistance, stand-by Self-Care Promotion: independence encouraged Problem: Self-Care Deficit Goal: Improved Ability to Complete Activities of Daily Living Outcome: Ongoing, Progressing Intervention: Promote Activity and Functional Oliver Flowsheets (Taken 06/19/2025344) Activity Assistance Provided: assistance, [...] from the original note were not included. [id number] Tratamiento para contracciones ventriculares prematuras (CVP) Las [...] Confusi??n. Last Reviewed Date: 2024 00:00:00 ?? [id number] [employer]. All rights reserved. This information is not intended as a substitute for professional medical care. Always follow your healthcare professional's instructions. * Gabriel Singh - Brittaney Dumas RN - 06/18/2025 6:29 PM EDT Images from the original note were not included. [id number] C??mo comprender las contracciones ventriculares prematuras (CVP) [...] se??al activa partes cercanas del coraz??n contraer. Tamora permite que el coraz??n se comprima de [...] card??acos anteriores, el coraz??n expulsar?? muypoca mushtaq. Tamora provoca aria sensaci??n de pausa entre latidos. El siguiente latido card??aco suele ser m??s bea, ya que la pausa lo permite que el coraz??n descanse y se llene de mushtaq. Tamora lleva a aria sensaci??n de latido card??aco [...] port??til jameson unos d??as o incluso semanas. Tamora puede ayudar a diagnosticar los CVP que [...] im??genes del coraz??n. ? An??lisis de mushtaq. Tamora se hace para comprobar los electrolitos y concentraciones tiroideas. Last Reviewed Date: 2024 00:00:00 ?? [id number] [employer]. All rights reserved. This information is not intended as a substitute for professional medical care. Always follow your healthcare professional's instructions. * Gabriel Singh - Brittaney Dumas RN - 06/18/2025 6:29 PM EDT Images from the original note were not included. [id number] Tratamiento para contracciones ventriculares prematuras (CVP) Las [...] Confusi??n. Last Reviewed Date: 2024 00:00:00 ?? 5271-2026 [employer] All rights reserved. This information is not intended as a substitute for professional medical care. Always follow your healthcare professional's instructions. * Gabriel Singh - Brittaney Dumas RN - 06/18/2025 6:29 PM EDT Images from the original note were not included. [id number] C??mo comprender las contracciones ventriculares prematuras (CVP) [...] se??al activa partes cercanas del coraz??n contraer. Tamora permite que el coraz??n se comprima de [...] card??acos anteriores, el coraz??n expulsar?? muypoca mushtaq. Tamora provoca aria sensaci??n de pausa entre latidos. El siguiente latido card??aco suele ser m??s bea, ya que la pausa lo permite que el coraz??n descanse y se llene de mushtaq. Tamora lleva a aria sensaci??n de latido card??aco [...] port??til jameson unos d??as o incluso semanas. Tamora puede ayudar a diagnosticar los CVP que [...] im??genes del coraz??n. ? An??lisis de mushtaq. Tamora se hace para comprobar los electrolitos y concentraciones tiroideas. Last Reviewed Date: 2024 00:00:00 ?? 3946-9273 [employer]. All rights reserved. This information is not intended as a substitute for professional medical care. Always follow your healthcare professional's instructions. * Gabriel Singh - Brittaney Dumas RN - 06/18/2025 6:28 PM EDT Images from the original note were not included. 49080 Treatment for Premature Ventricular Contractions (PVCs) Premature [...] confusion Last Reviewed Date: 2024 00:00:00 ?? 4771-7088 [employer]. All rights reserved. This information is not intended as a substitute for professional medical care. Always follow your healthcare professional's instructions. * Gabriel GonsalezTRISTAN - Brittaney Dumas RN - 06/18/2025 6:28 PM EDT Images from the original note were not included. 13363 Understanding Premature Ventricular Contractions (PVCs) Premature ventricular [...] to 2 weeks. ? Insertable (or implantable) hospital monitor. This small device is implanted under [...] levels. Last Reviewed Date: 2024 00:00:00 ?? 2102-7739 [employer]. All rights reserved. This information is not intended as a substitute for professional medical care. Always follow your healthcare professional's instructions. * Progress Notes - Prashant Aguilar, FrankD - 06/18/2025 10:47 AM EDT Antithrombosis Monitoring: [...] Plan Anticoagulation Plan Warfarin Pharmacist Managed?: No [facility] Warfarin Dosing Protocol Followed?: No Bridging Agent in Conjunction With Warfarin? : Yes Ordered Agents: Enoxaparin Bridging Agent Dose: 70mg BID INR Monitoring Frequency: Monitor INR daily Patient Education : Complete and documented Warfarin dosing and adjustment per CT surgery provider. Transitions of Care Outpatient provider managing warfarin after [facility] discharge: TBD - possibly clinic Recommended [...] Ongoing, Progressing Intervention: Promote Activity and Functional Oliver Flowsheets (Taken 06/18/202558) Activity Assistance Provided: assistance, 1 person Self-Care Promotion: independence encouraged Problem: Self-Care Deficit Goal: Improved Ability to Complete Activities of Daily Living Outcome: Ongoing, Progressing Intervention: Promote Activity and Functional Oliver Flowsheets (Taken 06/18/202558) Activity Assistance Provided: assistance, [...] from the original note were not included. [id number] Warfarin IMPORTANT WARNING: Warfarin may cause severe [...] doctor or pharmacist will give you the internet marketing consultant's patient information sheet (Medication Guide) when you begin treatment with warfarin and each time you refill your prescription. Read the information carefully and ask your doctor or pharmacist if you have any questions. You can also visit the Food and Drug Administration (FDA) website (https://www.fda.gov/downloads/Drugs/DrugSafety/frh992749.pdf) or the internet marketing consultant's website to obtain the Medication Guide. Talk [...] amounts of vitamin K-containing food on a tyzj-kc-qinh basis. Do not eat large amounts of [...] be awakened, immediately call emergency services at 727. Symptoms of overdose may include the following: [...] of all of the prescription and nonprescription (ezsp-fvd-lmuvrxl) medicines, vitamins, minerals, and dietary supplements you [...] or pharmacist about specific clinical use. The [place] [employer] represents that the information provided hereunder was formulated with a reasonable standard of care, and in conformity with professional standards in the field. The [place] [employer] makes no representations or warranties, express or implied, including, but not limited to, any implied warranty of merchantability and/or fitness for a particular purpose, with respect to such information and specifically disclaims all such warranties. Users are advised that decisions regarding drug therapy are complex medical decisions requiring the independent, informed decision of an appropriate health healthcare consulting manager, and the information is provided for informational purposes only. The entire monograph for a drug should be reviewed for a thorough understanding of the drug's actions, uses and side effects. The [place] [employer] does not endorse or recommend the use of any drug.The information is not a substitute for medical care. AHFS?? Patient Medication Information?. ?? Copyright, 2023. The [place] [employer]??, [address], [address], [place], [place]. All Rights Reserved. Duplication for commercial use must be authorized by [facility]. Selected Revisions: February 13, 2017. AHFS?? Patient Medication Information?. ?? Copyright, 2024 * [facility] - Sydni Munson RN - 06/17/2025 12:42 PM EDT Images from the original note were not included. 52096 Recovery From Heart Surgery: The First Few [...] stop Last Reviewed Date: 2024 00:00:00 ?? 8720-0587 [employer]. All rights reserved. This information is not [...] arms away from your body. * [facility] - Sydni Munson RN - 06/17/2025 12:42 PM EDT Images from the original note were not included. 52605 After Heart Valve Surgery For the first [...] headache Last Reviewed Date: 2023 00:00:00 ?? 6262-8113 [employer]. All rights reserved. This information is not [...] the 1st floor of the [facility] near [facility] for a chest x-ray. [...] Sydni Munson CT Surgery Nurse Navigator at [phone] Friday through Friday 7am- 3:30pm [facility] [phone] after 3:30 pm, weekends and holidays - ask for the CT surgeon union organiser. * Progress Notes - Brooke Valdez PTA - 06/17/2025 11:58 AM EDT Physical Therapy Treatment Patient Name: Bradley Forrest Today's Date: 06/17/2025 Total Treatment Time: 39 min PT Discharge Recommendations: Home with assistance Equipment Recommended: Rollator Subjective The patient states, I am doing okay. Participants in Care Family/Caregiver Present: Yes Family/Caregiver: Spouse, Other (Specify) (sister and brother) Boxer Operator: Not Applicable Presentation Oxygen: None (Room air) [...] sequencing. Bed Mobility Exam: Rolling/Turning Level of Oliver: Minimum assist (75% patient effort) Physical/Nonphysical Assist: Verbal Cues, Set-up required Bed Mobility Exam: Scooting/Bridging Level of Oliver: Minimum assist (75% patient's effort) (to scoot to edge of bed with cues to adhere to sternal precautions) Physical/Nonphysical Assist: Verbal Cues, Set-up required Bed Mobility Exam: Supine to Sit Level of Oliver: Minimum assist (75% patient's effort) Physical/Nonphysical Assist: Verbal Cues, Set-up required, Additional assist utilized for safety Bed Mobility Exam: Sit to Supine Level of Oliver: Minimum assist (75% patient's effort) Physical/Nonphysical Assist: Verbal Cues, Set-up required, Additional assist utilized for safety Transfers Transfer Intervention: Verbal cues provided for correct bilateral hand and foot placement during sit to stand transfers. Transfer Interventions: The patient stood at the sink for hygiene approximately 8-10 minutes with CGA of 1 person. 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 Level of Oliver Adaptive Equipment Utilized Comments Feeding Grooming SBA Standing sinkside stood times 8 minutes in bathroom. Bathing Upper Body Dressing Lower Body Dressing Sock Level of Assistance: Moderate assistance, Minimal verbal cues Toileting SBA Toilet IADLs Health Management Community Re-Entry BALANCE Postural Appearance INTERVENTIONS Level of Oliver Balance Support Comments Static Sit Standby assist [...] weight shifting to promote safety. Level of Oliver Physical/Non-physical Assist Adaptive Equipment Utilized Rolling/ Turning [...] Plan Anticoagulation Plan Warfarin Pharmacist Managed?: No [facility] Warfarin Dosing Protocol Followed?: No Bridging Agent in Conjunction With Warfarin? : Yes Ordered Agents: Enoxaparin Bridging Agent Dose: 70mg BID INR Monitoring Frequency: Monitor INR daily Patient Education : Complete and documented Warfarin dosing and adjustment per CT surgery provider. Transitions of Care Outpatient provider managing warfarin after [facility] discharge: TBD - possibly clinic Recommended date for outpatient INR assessment: TBD - of note, enoxparin copay $0 for 7 day supply Will continue to follow patient's clinical progress daily. Maria Esther Kent PharmD, ARLEEN, BCCCP[facility] Critical [facility] Pharmacist - Cardiothoracic Surgery Contact via secure chat * Gabriel Singh - Maria Esther Kent PharmD - 06/17/2025 9:21 AM EDT Images from the original note were not included. Your Health Checklist: Taking Warfarin Safely - Video Follow this checklist to properly and safely take warfarin. To view the video go to this web address: [email or web address] Or, scan this QR code with your [...] the video go to this web address: https://bit.ly/0E85kTq Or, scan this QR code with your smart phone ?? [employer] * Maria Esther Houston PharmD - 06/17/2025 9:21 AM EDT Images from the original note were not included. Warfarin: Your INR Goal - Video Understand what the INR test measures, and what your healthy INR level should be. To view the video go to this web address: https://bit.ly/6Rjw0VS Or, scan this QR code with your smart phone ?? [employer] [facility] * Maria Esther Houston, PharmD - 06/17/2025 9:21 AM EDT Images from the original note were not included. Warfarin: Possible Side Effects - Video See what common and uncommon side effects you may experience when taking warfarin, and when to calleither your doctor or 911 for help. To view the video go to this web address: https://bit.ly/7YQ9Uvy Or, scan this QR code with your [...] Certain other vegetables and fruits, including asparagus, Humboldt sprouts, and kiwifruit ? Certain soy products, such as natto (a traditional Georgian dish of fermented soybeans) Some vegetable oils [...] reduced-fat cheese, served with a whole grain [place]ese muffin ? A grilled chicken sandwich on whole grain bread with raw spinach*, tomato slices, and mustard ? Oven-roasted fish served with steamed broccoli* and medley of whole grain pasta, carrots, onions,and mushrooms * Foods higher in vitamin K Last Reviewed Date: 2025 00:00:00 ?? 8483-2355 [employer]. All rights reserved. This information is not [...] the video go to this web address: https://bit.ly/5P3SRzK Or, scan this QR code with your smart phone ?? [employer] * Gabriel [facility] - Maria Esther Kent, PharmD - 06/17/2025 9:21 AM EDT Images from the original note were not included. [id number] Warfarin IMPORTANT WARNING: Warfarin may cause severe [...] doctor or pharmacist will give you the internet marketing consultant's patient information sheet (Medication Guide) when you begin treatment with warfarin and each time you refill your prescription. Read the information carefully and ask your doctor or pharmacist if you have any questions. You can also visit the Food and Drug Administration (FDA) website (https://www.fda.gov/downloads/Drugs/DrugSafety/lch083359.pdf) or the internet marketing consultant's website to obtain the Medication Guide. Talk [...] amounts of vitamin K-containing food on a nbyy-cz-rqgb basis. Do not eat large amounts of [...] missed one. Call your doctor if you hubetr dose of warfarin. What SIDE EFFECTS can [...] be awakened, immediately call emergency services at 245. Symptoms of overdose may include the following: [...] of all of the prescription and nonprescription (odpy-vhv-xtbvdby) medicines, vitamins, minerals, and dietary supplements you [...] or pharmacist about specific clinical use. The [place] [employer] represents that the information provided hereunder was formulated with a reasonable standard of care, and in conformity with professional standards in the field. The [place] [employer] makes no representations or warranties, express or implied, including, but not limited to, any implied warranty of merchantability and/or fitness for a particular purpose, with respect to such information and specifically disclaims all such warranties. Users are advised that decisions regarding drug therapy are complex medical decisions requiring the independent, informed decision of an appropriate health healthcare consulting manager, and the information is provided for informational purposes only. The entire monograph for a drug should be reviewed for a thorough understanding of the drug's actions, uses and side effects. The [place] [employer] does not endorse or recommend the use of any drug.The information is not a substitute for medical care. AHFS?? Patient Medication Information?. ?? Copyright, 2023. The [place] [employer]??, [address], [address], [place], [place]. All Rights Reserved. Duplication for commercial use must be authorized by [facility]. Selected Revisions: February 13, 2017. AHFS?? [...] Airway/Ventilation Management: airway patency maintained Taken 06/17/2025 Administration (IS): instruction provided, follow-up self-administered Cough [...] Ongoing, Progressing Intervention: Promote Activity and Functional Oliver Flowsheets (Taken 06/17/2025108) Activity Assistance Provided: assistance, 1 person Self-Care Promotion: independence encouraged Problem: Self-Care Deficit Goal: Improved Ability to Complete Activities of Daily Living Outcome: Ongoing, Progressing Intervention: Promote Activity and Functional Oliver Flowsheets (Taken 06/17/2025108) Activity Assistance Provided: assistance, [...] Absence of Bleeding 06/16/2025 1526 by Fariba Blanton, HESHAM Outcome: [...] Signs and Symptoms 06/16/2025 152 by Fariba Blanton, HESHAM Outcome: Ongoing, Progressing 06/16/2025 152 by Fariba Blanton RN Outcome: Ongoing, Not Progressing Goal: Anesthesia/Sedation Recovery 06/16/2025 1526 by Fariba Blanton, HESHAM Outcome: Ongoing, Progressing 06/16/2025 1526 by Franny, Fariba M, RN Outcome: Ongoing, Not Progressing Goal: Acceptable Pain Control 06/16/2025 1526 by Fariba Blanton RN Outcome: Ongoing, Progressing 06/16/2025 1526 by Fariba Blanton RN Outcome: Ongoing, Not Progressing Goal: Nausea and Vomiting Relief 06/16/2025 1526 by Fariba Blanton, HESHAM Outcome: Ongoing, Progressing 06/16/2025 1526 by Fariba Blanton RN Outcome: Ongoing, Not Progressing Goal: Effective Urinary Elimination 06/16/2025 1526 by Fariba Blanton RN Outcome: Ongoing, Progressing 06/16/2025 1526 by Fariba Blanton RN Outcome: Ongoing, Not Progressing Goal: Effective Oxygenation and Ventilation 06/16/2025 152 by Fariba Blanton, HESHAM Outcome: Ongoing, Progressing 06/16/2025 1526 by Fariba Blanton RN Outcome: Ongoing, Not Progressing Problem: Fall Injury Risk Goal: Absence of Fall and Fall-Related Injury 06/16/2025 152 by Fariba Blanton RN Outcome: Ongoing, Progressing 06/16/2025 152 by Fariba Blanton RN Outcome: Ongoing, Not Progressing Problem: Pain Acute Goal: Optimal Pain Control and Function 06/16/2025 152 by Fariba Blanton, HESHAM Outcome: Ongoing, Progressing 06/16/2025 1526 by Fariba Blanton, HESHAM Outcome: Ongoing, Not Progressing Problem: Mobility Impairment Goal: Optimal Mobility 06/16/2025 1526 by Fariba Blanton, HESHAM Outcome: Ongoing, Progressing 06/16/2025 1526 by Fariba Blanton, RN Outcome: Ongoing, Not Progressing Problem: Self-Care Deficit Goal: Improved Ability to Complete Activities of Daily Living 06/16/2025 152 by Fariba Blanton, HESHAM Outcome: Ongoing, Progressing 06/16/2025 1526 by Fariba Blanton, RN Outcome: Ongoing, Not Progressing Problem: Wound [...] Note Bradley Forrest 69 y.o. male CSN: [id number] Admission: 06/14/2025 5:18 AM Primary Problem: Severe [...] assisted ventilation initiated ([facility]) (Sdgmvqzh10/20/2025) Arrived intubated and sedated post-op - fast [...] 06/14/25 Brachial 06/14/25 0808 Brachial 2 GCS: Greenwood Coma Scale Score: 15 Review of Systems [...] post median sternotomy. Interval removal of the Loring-Ganzcatheter, right IJ sheath remains in place with tip in the mid to distal SVC. No pneumothorax or pleural effusions. Ongoing interstitial edema. 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 Boxer Operator (if applicable) OBJECTIVE & INTERVENTIONS PAIN Pain [...] ACTIVITY Treatment Minutes 24 TRANSFERS Level of Oliver Physical/Non- physical Assist Adaptive Equipment Utilized Sit to Stand Contact guard Verbal Cues, Additional assist utilized for safety, 1 person + 1 person to manage equipment (verbal cuing for sternal precautions) Stand to sit Contact guard Verbal Cues, 1 person + 1 person to manage equipment Interventions BALANCE Postural Appearance Posture: Rounded shoulders Level of Oliver Balance Support Interventions Static Sit Standby assist Feet supported Dynamic Sit Contact guard Feet supported Static Stand Standby assist Right upper extremity support, Left upper extremity support Pt with mild dizziness when coming to stand from sitting which subsided with roughly 30 seconds of static standing Dynamic Stand Standby assist Right upper extremity support, Left upper extremity support AMBULATION Level of Oliver Distance Adaptive Equipment Utilized Ambulation Standby assist, [...] Plan Anticoagulation Plan Warfarin Pharmacist Managed?: No [facility] Warfarin Dosing Protocol Followed?: No Reason for Protocol Departure: CT Surgery Bridging Agent in Conjunction With Warfarin? : Yes Ordered Agents: Enoxaparin Bridging Agent Dose: Enoxaparin 70mg bid to start 06/16 pm INR Monitoring Frequency: Monitor INR daily Patient Education : Incomplete Warfarin dosing and adjustment per CT surgery provider. Transitions of Care Outpatient provider managing warfarin after [facility] discharge: TBD Recommended date for outpatient INR assessment: TBD Will continue to follow patient's clinical progress daily. Sy Fernández PharmD PGY-2 Cardiology Photographic Restorer Available via Secure Chat * Progress Notes [...] Ongoing, Progressing Intervention: Promote Activity and Functional Oliver Flowsheets Taken 06/15/20251699 by Bony Thomas RN [...] Ongoing, Progressing Intervention: Promote Activity and Functional Oliver Flowsheets Taken 06/15/2025 1700 by Bony Thomas RN Activity Assistance Provided: assistance, stand-by Taken 06/14/20252154 by Svetlana Reilly RN Self-Care Promotion: independence encouraged * Consults - Nat Singletary RD - 06/15/2025 2:23 PM EDTAssociated Order(s): IP CONSULT TO NUTRITION SERVICES Adult Nutrition Evaluation Note Bradley Forrest 69 y.o. male CSN: [id number] Room/Bed 234/234A Nutrition evaluation type: assessment Reason [...] Supplemental oxygen O2 Delivery Method: Nasal cannula Greenwood Coma Scale Score: 15 Keny Scale Score: 21 Shahid/Cubbin Pressure Risk Score: 38 Most Recent BM Date: (DANCE HISTORIAN) GI Symptoms: Nausea, Vomiting Edema: Generalized Allergies: [...] 30.07 Weight Evaluation: Obese-Class 1 (BMI 30-34.9) [place] Body Weight (kg): 67.3 Percent [place] Body Weight: 130 Adjusted Body Weight (kg): 72.4 Estimated Needs: Kcal/ K-28 Kcal Provided: 8121-8421 Metabolic Cart Study Results: Current Nutrition Intake: Diet Order: Adult Diet Diet Texture: Clear liquid Adult Carbohydrate Restriction: Consistent CHO 2 (0850-0332 Venkat, 80 g/meal) Fat Restriction: Cardiac Percent Meals Eaten (%): establishing Diet Experience and Nutrition History: Diet Education Provided: Will monitor Pertinent home medications: Jehovah'S Witness needs: Nutrition Focused Physical Exam: Physical exam performed on (date): 06/15 Temples (muscles): None Clavicle (muscle): None Shoulder (muscle): None Orbital (fat): None Triceps (fat): None Energy Intake: reported adequate DANCE HISTORIAN Weight Loss: denies Assessment of Malnutrition: Malnutrition [...] Note Bradley Forrest 69 y.o. male CSN: [id number] Admission: 06/14/2025 5:18 AM Primary Problem: Severe aortic regurgitation Digester Hand reviewed chart and spoke with the patient at bedside to complete this Initial Case Management Assessment. PCP: Kamran Singh MD Emergency Contact: Extended Emergency Contact Information Primary Emergency Contact: Naheed Forrest [address]: [address] [place] [address] [address] [address] [facility] Relation: Spouse Insurance: Primary Visit Coverage Payer Plan Sponsor Code Group Number Group Name MARY HERNANDEZ [facility] [place] [id number] Primary Visit Coverage Subscriber Subscriber ID Subscriber Name Subscriber SSN Subscriber Address [id number] Bradlye Forrest [id number] [id number] Secondary Visit Coverage Payer Plan Sponsor Code Group Number Group Name MEDICARE MEDICARE A & B Secondary Visit Coverage Subscriber Subscriber ID Subscriber Name Subscriber SSN Subscriber Address [id number] Bradley Forrest [id number] [id number] Patient information: Primary Caregiver: Self Support System: Immediate family Daily Living Activities: Functional Status: Independent Living Arrangements: Spouse/Significant other Type of Residence: Private residence, Single Level [address] [place] [address] Current DME: Equipment Currently Used at Home: [...] DME Provider: n/a Living Will/Advance Directive/Power of Sand Screener Operator /Guardian: Unable to assess: No Have you [...] prior HH/O2/HD/Abx. PCP is Kamran Singh. Has [employer] insurance and uses [facility]. Family to transport and assist as [...] Plan Anticoagulation Plan Warfarin Pharmacist Managed?: No [facility] Warfarin Dosing Protocol Followed?: No Reason for Protocol Departure: CT Surgery Bridging Agent in Conjunction With Warfarin? : No INR Monitoring Frequency: Monitor INR daily Patient Education : Incomplete Warfarin dosing and adjustment per CT surgery provider. Transitions of Care Outpatient provider managing warfarin after [facility] discharge: TBD Recommended date for outpatient INR assessment: TBD Will continue to follow patient's clinical progress daily. Sy Fernández, Alicia PGY-2 Cardiology Photographic Restorer Available via Secure Chat * Assessment & [...] assisted ventilation initiated ([facility]) (Eajrhnqy34/20/2025) Arrived intubated and sedated post-op - fast [...] Weaning from mechanically assisted ventilation initiated (CMS/HCC) (Jioqhazx46/20/2025) Arrived intubated and sedated post-op - fast [...] assisted ventilation initiated ([facility]) 06/14/2025 Diabetes 05/05/2025 Benign prostatic hyperplasia 05/05/2025 CAD (coronary artery disease) 04/14/2025 History of coronary angioplasty with insertion of stent 04/14/2025 Ascending aortic aneurysm ([facility]) 04/14/2025 Aortic valve regurgitation [...] 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) Level of Mobility: Ambulatory- community Mobility Oliver: Independent gait without device History of Falls: [...] Mobility Exam: Sit to Supine Level of Oliver: Maximum assist (25% patient's effort) Physical/Nonphysical Assist: Verbal Cues, Maximal cues, Additional assist utilized for safety Transfers Transfer Exam: Sit to stand Level of Oliver: Moderate assist (50% patient's effort) Physical/Nonphysical Assist: Verbal Cues, Moderate cues, Additional assist utilized for safety Assistive Device: Rollator Transfer Exam: Stand to Sit Level of Oliver: Minimum assist (75% patient's effort) Physical/Nonphysical Assist: [...] activity. Standardized Assessments Standardized Assessments Standardized Assessments: [facility] 6-Clicks Mobility Assessment [facility] 6-Clicks Mobility Assessment Difficulty patient has [...] 3-5 steps with a railing?: A little [facility] 6-Clicks Mobility Assessment Total : 16 [...] assisted ventilation initiated ([facility]) 06/14/2025 Diabetes 05/05/2025 Benign prostatic hyperplasia 05/05/2025 CAD (coronary artery disease) 04/14/2025 History of coronary angioplasty with insertion of stent 04/14/2025 Ascending aortic aneurysm ([facility]) 04/14/2025 Aortic valve regurgitation [...] 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) Level of Mobility: Ambulatory- community Mobility Oliver: Independent gait without device History of Falls: [...] Mobility Exam: Sit to Supine Level of Oliver: Maximum assist (25% patient's effort) Physical/Nonphysical Assist: Verbal Cues, Maximal cues, Additional assist utilized for safety Transfers Transfer Exam: Sit to stand Level of Oliver: Moderate assist (50% patient's effort) Physical/Nonphysical Assist: Verbal Cues, Moderate cues, Additional assist utilized for safety Assistive Device: Rollator Transfer Exam: Stand to Sit Level of Oliver: Minimum assist (75% patient's effort) Physical/Nonphysical Assist: [...] continued education to improve carryover. Standardized Assessments [facility] 6-Click Daily Activities Help from Other: Don/Doff Regular Lower Body Clothings: A lot Help From Other: Bathing: A lot Help From Other: Toileting: A lot Help From Other: Don/Doff Upper Body Clothings: Little Help From Other: Grooming: Little Help From Other: Eating Meals: None [facility] 6 Click - Daily Activities [...] Right 06/14/25 0832 Internal jugular 1 GCS: Greenwood Coma Scale Score: 15 Review of Systems [...] of NG tube. Right internal jugular approach Loring-Shira catheter and mediastinal drain in unchanged position. [...] Weaning from mechanically assisted ventilation initiated (CMS/HCC) (Leftsccq70/20/2025) Arrived intubated and sedated post-op - fast [...] for analgesia prior to leaving the OR. [facility] services were consulted for management of [...] pressure support 8/5 Edited by: Balta Washington, SUPERVISOR AGENCY APPOINTMENTS, DNP at 06/14/2025 7031 Lines/Drains/Tubes: Patient Lines/Drains/Airways Status Active Active LDAs [...] Ongoing, Progressing Intervention: Promote Activity and Functional Oliver Flowsheets (Taken 06/14/20252154) Activity Assistance Provided: assistance, [...] assisted ventilation initiated ([facility]) (Iftoyhlb64/20/2025) Arrived intubated and sedated post-op - fast [...] for analgesia prior to leaving the OR. [facility] services were consulted for management of [...] 06/14/25 1327 Mediastinal less than 1 NG/OG Liberty Sump Orogastric 18 Fr Center mouth 06/14/25 [...] 2 tablets by mouth every morning. Under [place] law, monthly prescriptions (30 days) can be refilled at 25 days and three-month prescriptions (90 days) at 80 days. Please contact the insurance company with questions if refills are denied. (Patient taking differently: Take 2 tablets by mouth every 4 hours as needed. Under [place] law, monthly prescriptions (30 days) can be [...] Intervention: Prevent or Manage Infection Flowsheets Taken 06/14/2025 1718 Infection Management: aseptic technique maintained Fever Reduction/Comfort Measures: lightweight clothing Taken 06/14/2025 1600 Isolation Precautions: precautions maintained * Op Note - Phillip Clark MD - 06/14/2025 8:55 AM EDT Operative Note Median sternotomy, aortic valve replacement using a 25 mm Saint Jose mechanical prosthesis. Date: 06/14/25 Location: [facility] Name: Bradley Forrest, : 1955, Diagnoses: Pre-op Diagnosis Severe aortic regurgitation Post-op Diagnosis Severe aortic regurgitation Coronary artery disease due to calcified coronary lesion History of coronary angioplasty with insertion of stent Left ventricular enlargement Procedure(s): Median sternotomy, aortic valve replacement using a 25 mm Saint Jose mechanical prosthesis. Attending Surgeon(s): * Phillip Clark - Primary Ear Mold Laboratory Technician(s): * Turner Pablo MD - Fellow Anesthesia: General ASA: IV Blood Administration: Blood Product Administration History None Estimated Blood Loss: 150 mL Drains: Chest Tube Mediastinal 36 Fr (Active) Function -20 cm H2O 06/14/25 1600 Chest Tube Air Leak No 06/14/25 1600 Patency Intervention Tip/tilt 06/14/25 1600 Drainage Description Dark red 06/14/25 1600 NG/OG Liberty Sump Orogastric 18 Fr Center mouth (Active) Urethral Catheter Temperature probe 16 Fr. (Active) Implants Type Name Action Serial No. GRAFT PTCH [id number] FELT - [id number] Implanted VALVE ATRIAL 25MM ROTATABL CUF STD PTFE - [id number] - [id number] Implanted [id number] Specimen: Specimens ID Source Frozen? 1 Heart [...] stenting of his coronaries. In addition his stone chimney mason, Jd Duvall, had done an echocardiogram which [...] was induced, monitoring lines were placed, a Loring-Shira catheter was floated into position and a [...] cardioplegia was infused resulting in asystole. From this point forward cardioplegia was administered every 45-60 minutes, [...] Prolene using an RB 2 needle. This suture line was then treated with Prevalon leak. Warm retrograde cardioplegia was infused. We had placed a vent into the ascending aorta the ventricular vent [...] a VVI of 40 to help ventricle not dilate. The core temperature was around 36?? C. [...] Prolene and a tack seal. One 36 Bulgarian chest tube was placed. Chest tubes and pacing wires were secured to the anterior abdominal wall. The sternum was reapproximated with #7 [id number] stainless steel wires, the fasciawas closed with [...] 2 tablets by mouth every morning. Under [place] law, monthly prescriptions (30 days) can be refilled at 25 days and three-month prescriptions (90 days) at 80 days. Please contact the insurance company with questions if refills are denied. Patient taking differently: Take 2 tablets by mouth every 4 hours as needed. Under [place] law, monthly prescriptions (30 days) can be [...] Description 07/07/2025 2:40 PM EST Office Visit [facility] [address], [address] [place] [address] Phillip Clark MD [address] [place] [address] Pending Results Name Type Priority [...] 11 PM EDT MAGNESIUM, PLASMA Add-On 06/15/2025 4: 11 PM EDT BASIC METABOLIC PANEL, PLASMA Routine [...] - 99 mg/dL 06/20/2025 2:47 AM EDT [facility] BUN, Plasma 22 8 - 23 mg/dL 06/20/2025 2:47 AM EDT [facility] Creatinine, Plasma 0.85 0.70 - 1.20 mg/dL 06/20/2025 2:47 AM EDT [facility] BUN/Creatinine Ratio 26 06/20/2025 2:47 AM EDT [facility] Sodium, Plasma 131(L) 136 - 145 mmol/L 06/20/2025 2:47 AM EDT [facility] Potassium, Plasma 4.0 3.6 - 4.9 mmol/L 06/20/2025 2:47 AM EDT [facility] Chloride, Plasma 102 97 - 107 mmol/L 06/20/2025 2:47 AM EDT [facility] CO2, Plasma 24 22 - 29 mmol/L 06/20/2025 2:47 AM EDT [facility] Anion Gap 5(L) 6 - 16 mmol/L 06/20/2025 2:47 AM EDT [facility] Total Calcium, Plasma 7.9(L) 8.9 - 10.2 mg/dL 06/20/2025 2:47 AM EDT [facility] eGFRcr 94.1 mL/min/1.7 3m*2 06/20/2025 2:47 AM EDT [facility] Comment:Reported eGFRcr in m L/min/1.73m2 is based the CKD-EPI 2020 equation that does not use a race coefficient. Blood Venous blood specimen / Unknown Venipuncture / Unknown 06/20/2025 1:52 AM EDT 06/20/2025 1:59 AM EDT us Phillip Clark MD LAB BLOOD ORDERABLES Final R esult Performing Organization Address City/State/[facility] Co de Phone Number [facility] [address] [place] [address] * Phosphorus (06/20/2025 1:52 AM EDT) Phosphorus, Plasma 2.8 2.5 - 4.5 mg/dL 06/20/2025 2:23 AM EDT [facility] Blood Venous blood specimen / Unknown Venipuncture / Unknown 06/20/2025 1:52 AM EDT 06/20/2025 1:59 AM EDT Phillip Clark MD LAB BLOOD ORDERABLES Final R esult Performing Organization Address City/[facility]/ZIP Co de Phone Number [facility] [address] [place] [address] * (ABNORMAL) Protime-INR (06/20/2025 1:52 AM EDT) Prothrombin Time 30.4(H) 12.0 - 14.3 sec LAB COAGULATION METHOD 06/20/2025 2:29 AM EDT [facility] INR 2.9(H) 0.9 - 1.1 LAB COAGULATION METHOD 06/20/2025 2:29 AM EDT [facility] Blood Venous blood specimen / Unknown Venipuncture / Unknown 06/20/2025 1:52 AM EDT 06/20/2025 1:59 AM EDT Narrative [facility] - 06/20/2025 2:29 AM EDT OPTIMAL INR RANGES FOR PATIENT ON ORAL ANTICOAGULANT THERAPY Prevention of venous thromboembolism INR 2.0 to 3.0 In patients with heart disease: Atrial fibrillation INR 2.0 to 3.0 Valvular heart disease INR 2.0 to 3.0 Tissue heart valves INR 2.0 to 3.0 Mechanical prosthetic valves INR 2.5 to 3.5 Prevention of recurrent KS INR 2.5 to 3.5 us Phillip Clark MD LAB BLOOD ORDERABLES Final R esult Performing Organization Address [facility] Co de Phone Number [facility] [address] [place] [address] * Magnesium (06/20/2025 1:52 AM EDT) Magnesium, Plasma 2.2 1.9 - 2.4 mg/dL 06/20/2025 2:23 AM EDT [facility] Blood Venous blood specimen / Unknown Venipuncture / Unknown 06/20/2025 1:52 AM EDT 06/20/2025 1:59 AM EDT Phillip Clark MD LAB BLOOD ORDERABLES Final R esult Performing Organization Address City/[facility]/ZIP Co de Phone Number [facility] [address] [place] [address] * (ABNORMAL) CBC (06/20/2025 1:52 AM EDT) WBC Count 6.95 3.70 - 10.30 10*3/uL LAB HEMATOLOGY METHOD 06/20/2025 2:07 AM EDT [facility] RBC Count 3.73(L) 4.60 - 6.10 10*6/uL LAB HEMATOLOGY METHOD 06/20/2025 2:07 AM EDT [facility] HGB 10.4(L) 13.7 - 17.5 g/dL LAB HEMATOLOGY METHOD 06/20/2025 2:07 AM EDT [facility] HCT 31.9(L) 40.0 - 51.0 % LAB HEMATOLOGY METHOD 06/20/2025 2:07 AM EDT [facility] Platelet Count 187 155 - 369 10*3/uL LAB HEMATOLOGY METHOD 06/20/2025 2:07 AM EDT [facility] MCV 86 79 - 98 fL LAB HEMATOLOGY METHOD 06/20/2025 2:07 AM EDT [facility] MCH 27.9 26.0 - 32.0 pg LAB HEMATOLOGY METHOD 06/20/2025 2:07 AM EDT [facility] MCHC 32.6 30.7 - 35.5 g/dL LAB HEMATOLOGY METHOD 06/20/2025 2:07 AM EDT [facility] RDW 14.8(H) 11.5 - 14.5 % LAB HEMATOLOGY METHOD 06/20/2025 2:07 AM EDT [facility] MPV 10.2 8.8 - 12.5 fL LAB HEMATOLOGY METHOD 06/20/2025 2:07 AM EDT [facility] nRBC 0.0 <=0.0 per 100 WBCs LAB HEMATOLOGY METHOD 06/20/2025 2:07 AM EDT [facility] Blood Venous blood specimen / Unknown Venipuncture / Unknown 06/20/2025 1:52 AM EDT 06/20/2025 1:59 AM EDT us Phillip Clark MD LAB BLOOD ORDERABLES Final R esult [facility] [address] [place] [address] * PERIPHERAL IV (SMARTFORM LINK) (06/20/2025 1:47 [...] QTC Interval 478 ms MUSE ECG P Barlow 43 degrees MUSE ECG R Barlow -30 degrees MUSE ECG T Wave Barlow 36 degrees MUSE ECG Diagnosis Poor data quality, interpretation may be adversely affected MUSE ECG Diagnosis Sinus rhythm with premature supraventricular complexes and with occasional premature ventricular complexes MUSE ECG Diagnosis Left axis deviation MUSE ECG Diagnosis Poor R-wave progression MUSE ECG Diagnosis Abnormal ECG MUSE ECG Diagnosis Recommend repeat ECG MUSE ECG Diagnosis MUSE ECG Diagnosis Confirmed by Aman Coe ([id number]) on 06/19/2025 1:33:10 PM MUSE ECG 06/19/2025 12:4 9 PM EDT 06/19/2025 1:33 PM EDT us Barbara MARIE ECG ORDERABLES Final Resul t MUSE ECG * (ABNORMAL) Basic metabolic panel (06/19/2025 2:38 AM EDT) [facility] Glucose, Plasma 102(H) 74 - 99 mg/dL 06/19/2025 4:10 AM EDT [facility] BUN, Plasma 25(H) 8 - 23 mg/dL 06/19/2025 4:10 AM EDT [facility] Creatinine, Plasma 1.02 0.70 - 1.20 mg/dL 06/19/2025 4:10 AM EDT [facility] BUN/Creatinine Ratio 25 06/19/2025 4:10 AM EDT [facility] Sodium, Plasma 134(L) 136 - 145 mmol/L 06/19/2025 4:10 AM EDT [facility] Potassium, Plasma 4.6 3.6 - 4.9 mmol/L 06/19/2025 4:10 AM EDT [facility] Comment:Hemolyzed - Potassiu m may be falsely elevated by approximately 0.4-0.7 mmol/L. Chloride, Plasma 102 97 - 107 mmol/L 06/19/2025 4:10 AM EDT [facility] CO2, Plasma 23 22 - 29 mmol/L 06/19/2025 4:10 AM EDT [facility] Anion Gap 9 6 - 16 mmol/L 06/19/2025 4:10 AM EDT [facility] Total Calcium, Plasma 8.4(L) 8.9 - 10.2 mg/dL 06/19/2025 4:10 AM EDT [facility] eGFRcr 79.6 mL/min/1.7 3m*2 06/19/2025 4:10 AM EDT [facility] Comment:Reported eGFRcr in m L/min/1.73m2 is based the CKD-EPI 2020 equation that does not use a race coefficient. Blood Venous blood specimen / Unknown Venipuncture / Unknown 06/19/2025 2:38 AM EDT 06/19/2025 2:54 AM EDT us Phillip Clark MD LAB BLOOD ORDERABLES Final R esult [facility] [address] [place] [address] * Phosphorus (06/19/2025 2:38 AM EDT) Phosphorus, Plasma 3.6 2.5 - 4.5 mg/dL 06/19/2025 4:10 AM EDT [facility] Blood Venous blood specimen / Unknown Venipuncture / Unknown 06/19/2025 2:38 AM EDT 06/19/2025 2:54 AM EDT Phillip Clark MD LAB BLOOD ORDERABLES Final R esult Performing Organization Address [facility] Co de Phone Number [facility] [address] [place] [address] * (ABNORMAL) Protime-INR (06/19/2025 2:38 AM EDT) Prothrombin Time 26.3(H) 12.0 - 14.3 sec LAB COAGULATION METHOD 06/19/2025 3:09 AM EDT [facility] INR 2.4(H) 0.9 - 1.1 LAB COAGULATION METHOD 06/19/2025 3:09 AM EDT [facility] Blood Venous blood specimen / Unknown Venipuncture / Unknown 06/19/2025 2:38 AM EDT 06/19/2025 2:54 AM EDT Narrative [facility] - 06/19/2025 3:09 AM EDT OPTIMAL INR RANGES FOR PATIENT ON ORAL ANTICOAGULANT THERAPY Prevention of venous thromboembolism INR 2.0 to 3.0 In patients with heart disease: Atrial fibrillation INR 2.0 to 3.0 Valvular heart disease INR 2.0 to 3.0 Tissue heart valves INR 2.0 to 3.0 Mechanical prosthetic valves INR 2.5 to 3.5 Prevention of recurrent KS INR 2.5 to 3.5 Phillip Clark MD LAB BLOOD ORDERABLES Final R esult Performing Organization Address City/[facility] Co de Phone Number [facility] [address] [place] [address] * Magnesium (06/19/2025 2:38 AM EDT) Magnesium, Plasma 2.4 1.9 - 2.4 mg/dL 06/19/2025 4:10 AM EDT [facility] Blood Venous blood specimen / Unknown Venipuncture / Unknown 06/19/2025 2:38 AM EDT 06/19/2025 2:54 AM EDT us Phillip Clark MD LAB BLOOD ORDERABLES Final R esult [facility] [address] [place] [address] * (ABNORMAL) CBC (06/19/2025 2:38 AM EDT) WBC Count 6.94 3.70 - 10.30 10*3/uL LAB HEMATOLOGY METHOD 06/19/2025 3:17 AM EDT [facility] RBC Count 4.12(L) 4.60 - 6.10 10*6/uL LAB HEMATOLOGY METHOD 06/19/2025 3:17 AM EDT [facility] HGB 11.5(L) 13.7 - 17.5 g/dL LAB HEMATOLOGY METHOD 06/19/2025 3:17 AM EDT [facility] HCT 35.7(L) 40.0 - 51.0 % LAB HEMATOLOGY METHOD 06/19/2025 3:17 AM EDT [facility] Platelet Count 165 155 - 369 10*3/uL LAB HEMATOLOGY METHOD 06/19/2025 3:17 AM EDT [facility] MCV 87 79 - 98 fL LAB HEMATOLOGY METHOD 06/19/2025 3:17 AM EDT [facility] MCH 27.9 26.0 - 32.0 pg LAB HEMATOLOGY METHOD 06/19/2025 3:17 AM EDT [facility] MCHC 32.2 30.7 - 35.5 g/dL LAB HEMATOLOGY METHOD 06/19/2025 3:17 AM EDT [facility] RDW 14.8(H) 11.5 - 14.5 % LAB HEMATOLOGY METHOD 06/19/2025 3:17 AM EDT [facility] MPV 10.6 8.8 - 12.5 fL LAB HEMATOLOGY METHOD 06/19/2025 3:17 AM EDT [facility] nRBC 0.0 <=0.0 per 100 WBCs LAB HEMATOLOGY METHOD 06/19/2025 3:17 AM EDT [facility] Blood Venous blood specimen / Unknown Venipuncture / Unknown 06/19/2025 2:38 AM EDT 06/19/2025 2:54 AM EDT us Phillip Clark MD LAB BLOOD ORDERABLES Final R esult [facility] [address] [place] [address] * XR Chest 1 View (06/19/2025 1:50 [...] - 99 mg/dL 06/18/2025 2:17 AM EDT [facility] BUN, Plasma 18 8 - 23 mg/dL 06/18/2025 2:17 AM EDT [facility] Creatinine, Plasma 0.82 0.70 - 1.20 mg/dL 06/18/2025 2:17 AM EDT [facility] BUN/Creatinine Ratio 22 06/18/2025 2:17 AM EDT [facility] Sodium, Plasma 134(L) 136 - 145 mmol/L 06/18/2025 2:17 AM EDT [facility] Potassium, Plasma 3.7 3.6 - 4.9 mmol/L 06/18/2025 2:17 AM EDT [facility] Chloride, Plasma 100 97 - 107 mmol/L 06/18/2025 2:17 AM EDT [facility] CO2, Plasma 26 22 - 29 mmol/L 06/18/2025 2:17 AM EDT [facility] Anion Gap 8 6 - 16 mmol/L 06/18/2025 2:17 AM EDT [facility] Total Calcium, Plasma 8.1(L) 8.9 - 10.2 mg/dL 06/18/2025 2:17 AM EDT [facility] eGFRcr 95.1 mL/min/1.7 3m*2 06/18/2025 2:17 AM EDT [facility] Comment:Reported eGFRcr in m L/min/1.73m2 is based the CKD-EPI 2020 equation that does not use a race coefficient. Blood Blood sample taken from central line / Unknown Venipuncture / Unknown 06/18/2025 1:43 AM EDT 06/18/2025 1:48 AM EDT us Phillip Clark MD LAB BLOOD ORDERABLES Final R esult Performing Organization Address City/[facility] Co de Phone Number [facility] [address] [place] [address] * Phosphorus (06/18/2025 1:43 AM EDT) Phosphorus, Plasma 2.6 2.5 - 4.5 mg/dL 06/18/2025 2:17 AM EDT [facility] Blood Blood sample taken from central line / Unknown Venipuncture / Unknown 06/18/2025 1:43 AM EDT 06/18/2025 1:48 AM EDT us Phillip Clark MD LAB BLOOD ORDERABLES Final R esult Performing Organization Address [facility]/ZIP Co de Phone Number [facility] [address] [place] [address] * (ABNORMAL) Protime-INR (06/18/2025 1:43 AM EDT) Prothrombin Time 25.2(H) 12.0 - 14.3 sec LAB COAGULATION METHOD 06/18/2025 2:07 AM EDT [facility] INR 2.3(H) 0.9 - 1.1 LAB COAGULATION METHOD 06/18/2025 2:07 AM EDT [facility] Blood Blood sample taken from central line / Unknown Venipuncture / Unknown 06/18/2025 1:43 AM EDT 06/18/2025 1:48 AM EDT Narrative [facility] - 06/18/2025 2:07 AM EDT OPTIMAL INR RANGES FOR PATIENT ON ORAL ANTICOAGULANT THERAPY Prevention of venous thromboembolism INR 2.0 to 3.0 In patients with heart disease: Atrial fibrillation INR 2.0 to 3.0 Valvular heart disease INR 2.0 to 3.0 Tissue heart valves INR 2.0 to 3.0 Mechanical prosthetic valves INR 2.5 to 3.5 Prevention of recurrent KS INR 2.5 to 3.5 us Phillip Clark MD LAB BLOOD ORDERABLES Final R esult Performing Organization Address City/[facility]/ZIP Co de Phone Number [facility] [address] [place] [address] * Magnesium (06/18/2025 1:43 AM EDT) Pathologist [facility] Magnesium, Plasma 2.3 1.9 - 2.4 mg/dL 06/18/2025 2:17 AM EDT [facility] Blood Blood sample taken from central line / Unknown Venipuncture / Unknown 06/18/2025 1:43 AM EDT 06/18/2025 1:48 AM EDT Phillip Clark MD LAB BLOOD ORDERABLES Final R esult [facility] [address] [place] [address] * (ABNORMAL) CBC (06/18/2025 1:43 AM EDT) [facility] WBC Count 8.51 3.70 - 10.30 10*3/uL LAB HEMATOLOGY METHOD 06/18/2025 1:54 AM EDT [facility] RBC Count 3.67(L) 4.60 - 6.10 10*6/uL LAB HEMATOLOGY METHOD 06/18/2025 1:54 AM EDT [facility] HGB 10.6(L) 13.7 - 17.5 g/dL LAB HEMATOLOGY METHOD 06/18/2025 1:54 AM EDT [facility] HCT 31.2(L) 40.0 - 51.0 % LAB HEMATOLOGY METHOD 06/18/2025 1:54 AM EDT [facility] Platelet Count 121(L) 155 - 369 10*3/uL LAB HEMATOLOGY METHOD 06/18/2025 1:54 AM EDT [facility] MCV 85 79 - 98 fL LAB HEMATOLOGY METHOD 06/18/2025 1:54 AM EDT [facility] MCH 28.9 26.0 - 32.0 pg LAB HEMATOLOGY METHOD 06/18/2025 1:54 AM EDT [facility] MCHC 34.0 30.7 - 35.5 g/dL LAB HEMATOLOGY METHOD 06/18/2025 1:54 AM EDT [facility] RDW 14.7(H) 11.5 - 14.5 % LAB HEMATOLOGY METHOD 06/18/2025 1:54 AM EDT [facility] MPV 10.4 8.8 - 12.5 fL LAB HEMATOLOGY METHOD 06/18/2025 1:54 AM EDT [facility] nRBC 0.0 <=0.0 per 100 WBCs LAB HEMATOLOGY METHOD 06/18/2025 1:54 AM EDT [facility] Blood Blood sample taken from central line / Unknown Venipuncture / Unknown 06/18/2025 1:43 AM EDT 06/18/2025 1:48 AM EDT us Phillip Clark MD LAB BLOOD ORDERABLES Final R esult [facility] [address] [place] [address] * XR Chest 1 View (06/17/2025 3:14 [...] - 99 mg/dL 06/17/2025 12:54 AM EDT [facility] BUN, Plasma 15 8 - 23 mg/dL 06/17/2025 12:54 AM EDT [facility] Creatinine, Plasma 0.81 0.70 - 1.20 mg/dL 06/17/2025 12:54 AM EDT [facility] BUN/Creatinine Ratio 19 06/17/2025 12:54 AM EDT [facility] Sodium, Plasma 133(L) 136 - 145 mmol/L 06/17/2025 12:54 AM EDT [facility] Potassium, Plasma 3.9 3.6 - 4.9 mmol/L 06/17/2025 12:54 AM EDT [facility] Chloride, Plasma 98 97 - 107 mmol/L 06/17/2025 12:54 AM EDT [facility] CO2, Plasma 25 22 - 29 mmol/L 06/17/2025 12:54 AM EDT [facility] Anion Gap 10 6 - 16 mmol/L 06/17/2025 12:54 AM EDT [facility] Total Calcium, Plasma 8.1(L) 8.9 - 10.2 mg/dL 06/17/2025 12:54 AM EDT [facility] eGFRcr 95.4 mL/min/1.7 3m*2 06/17/2025 12:54 AM EDT [facility] Comment:Reported eGFRcr in m L/min/1.73m2 is based the CKD-EPI 2020 equation that does not use a race coefficient. Blood Blood sample taken from central line / Unknown Venipuncture / Unknown 06/17/2025 12:17 AM EDT 06/17/2025 12:24 AM EDT us Phillip Clark MD LAB BLOOD ORDERABLES Final R esult [facility] [address] [place] [address] * Phosphorus (06/17/2025 12:17 AM EDT) Phosphorus, Plasma 2.9 2.5 - 4.5 mg/dL 06/17/2025 12:54 AM EDT [facility] Blood Blood sample taken from central line / Unknown Venipuncture / Unknown 06/17/2025 12:17 AM EDT 06/17/2025 12:24 AM EDT Phillip Clark MD LAB BLOOD ORDERABLES Final R esult Performing Organization Address [facility] Co de Phone Number [facility] [address] [place] [address] * (ABNORMAL) Protime-INR (06/17/2025 12:17 AM EDT) Prothrombin Time 18.7(H) 12.0 - 14.3 sec LAB COAGULATION METHOD 06/17/2025 1:16 AM EDT [facility] INR 1.5(H) 0.9 - 1.1 LAB COAGULATION METHOD 06/17/2025 1:16 AM EDT [facility] Blood Blood sample taken from central line / Unknown Venipuncture / Unknown 06/17/2025 12:17 AM EDT 06/17/2025 12:24 AM EDT Narrative [facility] - 06/17/2025 1:16 AM EDT OPTIMAL INR RANGES FOR PATIENT ON ORAL ANTICOAGULANT THERAPY Prevention of venous thromboembolism INR 2.0 to 3.0 In patients with heart disease: Atrial fibrillation INR 2.0 to 3.0 Valvular heart disease INR 2.0 to 3.0 Tissue heart valves INR 2.0 to 3.0 Mechanical prosthetic valves INR 2.5 to 3.5 Prevention of recurrent KS INR 2.5 to 3.5 Phillip Clark MD LAB BLOOD ORDERABLES Final R esult Performing Organization Address City/[facility]/ZIP Co de Phone Number [facility] [address] [place] [address] * Magnesium (06/17/2025 12:17 AM EDT) Magnesium, Plasma 2.3 1.9 - 2.4 mg/dL 06/17/2025 12:54 AM EDT [facility] Blood Blood sample taken from central line / Unknown Venipuncture / Unknown 06/17/2025 12:17 AM EDT 06/17/2025 12:24 AM EDT us Phillip Clark MD LAB BLOOD ORDERABLES Final R esult [facility] [address] [place] [address] * (ABNORMAL) CBC (06/17/2025 12:17 AM EDT) WBC Count 10.83(H) 3.70 - 10.30 10*3/uL LAB HEMATOLOGY METHOD 06/17/2025 12:32 AM EDT [facility] RBC Count 4.08(L) 4.60 - 6.10 10*6/uL LAB HEMATOLOGY METHOD 06/17/2025 12:32 AM EDT [facility] HGB 11.3(L) 13.7 - 17.5 g/dL LAB HEMATOLOGY METHOD 06/17/2025 12:32 AM EDT [facility] HCT 35.0(L) 40.0 - 51.0 % LAB HEMATOLOGY METHOD 06/17/2025 12:32 AM EDT [facility] Platelet Count 116(L) 155 - 369 10*3/uL LAB HEMATOLOGY METHOD 06/17/2025 12:32 AM EDT [facility] MCV 86 79 - 98 fL LAB HEMATOLOGY METHOD 06/17/2025 12:32 AM EDT [facility] MCH 27.7 26.0 - 32.0 pg LAB HEMATOLOGY METHOD 06/17/2025 12:32 AM EDT [facility] MCHC 32.3 30.7 - 35.5 g/dL LAB HEMATOLOGY METHOD 06/17/2025 12:32 AM EDT [facility] RDW 15.1(H) 11.5 - 14.5 % LAB HEMATOLOGY METHOD 06/17/2025 12:32 AM EDT [facility] MPV 10.3 8.8 - 12.5 fL LAB HEMATOLOGY METHOD 06/17/2025 12:32 AM EDT [facility] nRBC 0.0 <=0.0 per 100 WBCs LAB HEMATOLOGY METHOD 06/17/2025 12:32 AM EDT [facility] Blood Blood sample taken from central line / Unknown Venipuncture / Unknown 06/17/2025 12:17 AM EDT 06/17/2025 12:24 AM EDT Phillip Clark MD LAB BLOOD ORDERABLES Final R esult Performing Organization Address City/[facility]/ZIP Co de Phone Number [facility] [address] [place] [address] * Magnesium (06/16/2025 5:35 PM EDT) Magnesium, Plasma 2.2 1.9 - 2.4 mg/dL 06/16/2025 7:41 PM EDT [facility] Blood Venous blood specimen / Unknown Venipuncture / Unknown 06/16/2025 5:35 PM EDT 06/16/2025 7:12 PM EDT Phillip Clark MD LAB BLOOD ORDERABLES Final R esult Performing Organization Address [facility]/ZIP Co de Phone Number [facility] [address] [place] [address] * (ABNORMAL) Renal function panel (06/16/2025 5:35 PM EDT) Glucose, Plasma 89 74 - 99 mg/dL 06/16/2025 7:41 PM EDT [facility] BUN, Plasma 15 8 - 23 mg/dL 06/16/2025 7:41 PM EDT [facility] Creatinine, Plasma 0.79 0.70 - 1.20 mg/dL 06/16/2025 7:41 PM EDT [facility] BUN/Creatinine Ratio 19 06/16/2025 7:41 PM EDT [facility] Sodium, Plasma 134(L) 136 - 145 mmol/L 06/16/2025 7:41 PM EDT [facility] Potassium, Plasma 3.8 3.6 - 4.9 mmol/L 06/16/2025 7:41 PM EDT [facility] Chloride, Plasma 98 97 - 107 mmol/L 06/16/2025 7:41 PM EDT [facility] CO2, Plasma 25 22 - 29 mmol/L 06/16/2025 7:41 PM EDT [facility] Anion Gap 11 6 - 16 mmol/L 06/16/2025 7:41 PM EDT [facility] Total Calcium, Plasma 8.4(L) 8.9 - 10.2 mg/dL 06/16/2025 7:41 PM EDT [facility] Phosphorus, Plasma 2.2(L) 2.5 - 4.5 mg/dL 06/16/2025 7:41 PM EDT [facility] Albumin, Plasma 3.4(L) 3.5 - 5.2 g/dL 06/16/2025 7:41 PM EDT [facility] eGFRcr 96.2 mL/min/1.7 3m*2 06/16/2025 7:41 PM EDT [facility] Comment:Reported eGFRcr in m L/min/1.73m2 is based the CKD-EPI 2020 equation that does not use a race coefficient. Blood Venous blood specimen / Unknown Venipuncture / Unknown 06/16/2025 5:35 PM EDT 06/16/2025 7:12 PM EDT us Phillip Clark MD LAB BLOOD ORDERABLES Final R esult [facility] [address] [place] [address] * [place] CRITICAL CARE, E/M 30-74 MINUTES [...] Comment 06/16/2025 8:45 AM EDT [facility] Dovetail Machine Operator ID Fariba Blanton 025 8:45 AM EDT [facility] Device ID [id number] 06/16/2025 8:45 AM EDT [facility] Specimen Type POC Arterial 06/16/2025 8:45 AM EDT [facility] Blood Arterial blood specimen / Unknown 06/16/2025 8:40 AM EDT 06/16/2025 8:45 AM EDT us Phillip Clark MD LAB POINT OF CARE TE ST DOCKED DEVICE UNSOLICITED RESULTS Final Result Performing Organization Address City/State/[facility] Co de Phone Number [facility] [address] [place] [phone] * (ABNORMAL) Basic metabolic panel (06/16/2025 5:58 AM EDT) Glucose, Plasma 124(H) 74 - 99 mg/dL 06/16/2025 6:35 AM EDT [facility] BUN, Plasma 16 8 - 23 mg/dL 06/16/2025 6:35 AM EDT [facility] Creatinine, Plasma 0.83 0.70 - 1.20 mg/dL 06/16/2025 6:35 AM EDT [facility] BUN/Creatinine Ratio 19 06/16/2025 6:35 AM EDT [facility] Sodium, Plasma 132(L) 136 - 145 mmol/L 06/16/2025 6:35 AM EDT [facility] Potassium, Plasma 3.8 3.6 - 4.9 mmol/L 06/16/2025 6:35 AM EDT [facility] Chloride, Plasma 100 97 - 107 mmol/L 06/16/2025 6:35 AM EDT [facility] CO2, Plasma 25 22 - 29 mmol/L 06/16/2025 6:35 AM EDT [facility] Anion Gap 7 6 - 16 mmol/L 06/16/2025 6:35 AM EDT [facility] Total Calcium, Plasma 8.4(L) 8.9 - 10.2 mg/dL 06/16/2025 6:35 AM EDT [facility] eGFRcr 94.7 mL/min/1.7 3m*2 06/16/2025 6:35 AM EDT [facility] Comment:Reported eGFRcr in m L/min/1.73m2 is based the CKD-EPI 2020 equation that does not use a race coefficient. Blood Arterial blood specimen / Unknown Venipuncture / Unknown 06/16/2025 5:58 AM EDT 06/16/2025 6:05 AM EDT us Phillip Clark MD LAB BLOOD ORDERABLES Final R esult [facility] [address] [place] [address] * XR Chest 1 View (06/16/2025 5:14 AM EDT) Anatomical Region Laterality Modality Chest Digital Radiogra phy Impressions 06/16/2025 8:15 AM EDT Interval removal of the Loring-Shira catheter, the right IJ sheath remains in [...] post median sternotomy. Interval removal of the Loring-Shira catheter, right IJ sheath remains in place with tip in the mid to distal SVC. No pneumothorax or pleural effusions. Ongoing interstitial edema. Procedure Note Mona Smith MD - 06/16/2025 CLINICAL INDICATION: Post-Op Cardiac Surgery TECHNIQUE: XR CHEST 1 VIEW COMPARISON: Chest radiograph 06/15/2025 FINDINGS: Enlarged cardiac silhouette stable status post median sternotomy. Intervalremoval of the Loring-Shira catheter, right IJ sheath remains in place withtip in the mid to distal SVC. No pneumothorax or pleural effusions. Ongoing interstitial edema. IMPRESSION: Interval removal of the Loring-Shira catheter, the right IJ sheath remainsin place [...] lt * Phosphorus (06/16/2025 12:36 AM EDT) [facility] Phosphorus, Plasma 3.0 2.5 - 4.5 mg/dL 06/16/2025 1:12 AM EDT [facility] Blood Arterial blood specimen / Unknown Venipuncture / Unknown 06/16/2025 12:36 AM EDT 06/16/2025 12:48 AM EDT us Phillip Clark MD LAB BLOOD ORDERABLES Final R esult [facility] [address] [place] [address] * (ABNORMAL) Protime-INR (06/16/2025 12:36 AM EDT) Pathologist [facility] Prothrombin Time 18.0(H) 12.0 - 14.3 sec LAB COAGULATION METHOD 06/16/2025 1:06 AM EDT [facility] INR 1.5(H) 0.9 - 1.1 LAB COAGULATION METHOD 06/16/2025 1:06 AM EDT [facility] Blood Arterial blood specimen / Unknown Venipuncture / Unknown 06/16/2025 12:36 AM EDT 06/16/2025 12:48 AM EDT Narrative [facility] - 06/16/2025 1:06 AM EDT OPTIMAL INR RANGES FOR PATIENT ON ORAL ANTICOAGULANT THERAPY Prevention of venous thromboembolism INR 2.0 to 3.0 In patients with heart disease: Atrial fibrillation INR 2.0 to 3.0 Valvular heart disease INR 2.0 to 3.0 Tissue heart valves INR 2.0 to 3.0 Mechanical prosthetic valves INR 2.5 to 3.5 Prevention of recurrent KS INR 2.5 to 3.5 Phillip Clark MD LAB BLOOD ORDERABLES Final R esult Performing Organization Address City/[facility] Co de Phone Number [facility] [address] [place] [address] * (ABNORMAL) Magnesium (06/16/2025 12:36 AM EDT) Magnesium, Plasma 2.5(H) 1.9 - 2.4 mg/dL 06/16/2025 1:12 AM EDT [facility] Blood Arterial blood specimen / Unknown Venipuncture / Unknown 06/16/2025 12:36 AM EDT 06/16/2025 12:48 AM EDT Phillip Clark MD LAB BLOOD ORDERABLES Final R esult [facility] [address] [place] [address] * (ABNORMAL) CBC (06/16/2025 12:36 AM EDT) WBC Count 13.67(H) 3.70 - 10.30 10*3/uL LAB HEMATOLOGY METHOD 06/16/2025 1:01 AM EDT [facility] RBC Count 4.36(L) 4.60 - 6.10 10*6/uL LAB HEMATOLOGY METHOD 06/16/2025 1:01 AM EDT [facility] HGB 12.3(L) 13.7 - 17.5 g/dL LAB HEMATOLOGY METHOD 06/16/2025 1:01 AM EDT [facility] HCT 37.1(L) 40.0 - 51.0 % LAB HEMATOLOGY METHOD 06/16/2025 1:01 AM EDT [facility] Platelet Count 106(L) 155 - 369 10*3/uL LAB HEMATOLOGY METHOD 06/16/2025 1:01 AM EDT [facility] MCV 85 79 - 98 fL LAB HEMATOLOGY METHOD 06/16/2025 1:01 AM EDT [facility] MCH 28.2 26.0 - 32.0 pg LAB HEMATOLOGY METHOD 06/16/2025 1:01 AM EDT [facility] MCHC 33.2 30.7 - 35.5 g/dL LAB HEMATOLOGY METHOD 06/16/2025 1:01 AM EDT [facility] RDW 15.4(H) 11.5 - 14.5 % LAB HEMATOLOGY METHOD 06/16/2025 1:01 AM EDT [facility] MPV 10.8 8.8 - 12.5 fL LAB HEMATOLOGY METHOD 06/16/2025 1:01 AM EDT [facility] nRBC 0.0 <=0.0 per 100 WBCs LAB HEMATOLOGY METHOD 06/16/2025 1:01 AM EDT [facility] Blood Arterial blood specimen / Unknown Venipuncture / Unknown 06/16/2025 12:36 AM EDT 06/16/2025 12:48 AM EDT us Phillip Clark MD LAB BLOOD ORDERABLES Final R esult [facility] [address] [place] [address] * (ABNORMAL) Blood gas, arterial (06/16/2025 12:36 AM EDT) pH, Arterial 7.43(H) 7.31 - 7.42 LAB HEMATOLOGY METHOD 06/16/2025 12:58 AM EDT [facility] pCO2, Arterial 41 32 - 45 mmHg LAB HEMATOLOGY METHOD 06/16/2025 12:58 AM EDT [facility] pO2, Arterial 65(L) >80 mmHg LAB HEMATOLOGY METHOD 06/16/2025 12:58 AM EDT [facility] SO2, Measured, Arterial 94 94 - 98 % LAB HEMATOLOGY METHOD 06/16/2025 12:58 AM EDT [facility] Base Excess, Arterial 2.5 -2.0 - 3.0 mmol/L LAB HEMATOLOGY METHOD 06/16/2025 12:58 AM EDT [facility] Bicarbonate, Calculated, Arterial 27(H) 22 - 26 mmol/L LAB HEMATOLOGY METHOD 06/16/2025 12:58 AM EDT [facility] Hematocrit, Whole Blood 37.9(L) 40.0 - 51.0 % LAB HEMATOLOGY METHOD 06/16/2025 12:58 AM EDT [facility] Sodium, Whole Blood 133(L) 136 - 145 mmol/L LAB HEMATOLOGY METHOD 06/16/2025 12:58 AM EDT [facility] Potassium, Whole Blood 3.4(L) 3.6 - 4.9 mmol/L LAB HEMATOLOGY METHOD 06/16/2025 12:58 AM EDT [facility] Chloride, Whole Blood 100 97 - 107 mmol/L LAB HEMATOLOGY METHOD 06/16/2025 12:58 AM EDT [facility] Glucose, Whole Blood 124(H) 74 - 99 mg/dL LAB HEMATOLOGY METHOD 06/16/2025 12:58 AM EDT [facility] Ionized Calcium, Whole Blood 4.3(L) 4.6 - 5.1 mg/dL LAB HEMATOLOGY METHOD 06/16/2025 12:58 AM EDT [facility] Lactate, Arterial, Whole Blood 1.0 0.5 - 1.6 mmol/L LAB HEMATOLOGY METHOD 06/16/2025 12:58 AM EDT [facility] Blood Arterial blood specimen / Unknown Arterial Puncture / Unknown 06/16/2025 12:36 AM EDT 06/16/2025 12:55 AM EDT us Phillip Clark MD LAB BLOOD ORDERABLES Final R esult [facility] [address] [place] [address] * (ABNORMAL) POCT glucose meter (06/15/2025 8:00 PM EDT) Pathologist [facility] POCT Glucose 120(H) 74 - 99 mg/dL [...] Comment 06/15/2025 8:01 PM EDT [facility] Dovetail Machine Operator ID Svetlana Reilly 8:01 PM EDT [facility] Device ID [id number] 06/15/2025 8:01 PM EDT [facility] Specimen Type POC Capillary 06/15/2025 8:01 PM EDT [facility] Blood Capillary blood specimen / Unknown 06/15/2025 8:00 PM EDT 06/15/2025 8:01 PM EDT Phillip Clark MD LAB POINT OF CARE TE ST DOCKED DEVICE UNSOLICITED RESULTS Final Result Performing Organization Address City/State/[facility] Co de Phone Number [facility]ALTH[facility]ARE [facility] [address] [place] [address] * (ABNORMAL) POCT glucose meter (06/15/2025 5:56 PM EDT) Pathologist [facility] POCT Glucose 121(H) 74 - 99 mg/dL [...] 06/15/2025 5:57 PM EDT [facility] Dovetail Machine Operator ID Bony Thomas 025 5:57 PM EDT [facility] Device ID [id number] 06/15/2025 5:57 PM EDT [facility] Specimen Type POC Arterial 06/15/2025 5:57 PM EDT [facility] Blood Arterial blood specimen / Unknown 06/15/2025 5:56 PM EDT 06/15/2025 5:57 PM EDT us Phillip Clark MD LAB POINT OF CARE TE ST DOCKED DEVICE UNSOLICITED RESULTS Final Result Performing Organization Address City/[facility]/ZIP Co de Phone Number [facility] [address] [place] [address] * Magnesium (06/15/2025 4:11 PM EDT) Magnesium, Plasma 2.1 1.9 - 2.4 mg/dL 06/15/2025 6:21 PM EDT [facility] Blood Venous blood specimen / Unknown Venipuncture / Unknown 06/15/2025 4:11 PM EDT 06/15/2025 4:39 PM EDT Phillip Clark MD LAB BLOOD ORDERABLES Final R esult Performing Organization Address City/[facility]/ZIP Co de Phone Number [facility] [address] [place] [address] * Phosphorus (06/15/2025 4:11 PM EDT) Phosphorus, Plasma 2.9 2.5 - 4.5 mg/dL 06/15/2025 5:12 PM EDT [facility] Blood Venous blood specimen / Unknown Venipuncture / Unknown 06/15/2025 4:11 PM EDT 06/15/2025 4:39 PM EDT Phillip Clark MD LAB BLOOD ORDERABLES Final R esult Performing Organization Address City/[facility] Co de Phone Number [facility] [address] [place] [address] * (ABNORMAL) Basic metabolic panel (06/15/2025 4:11 PM EDT) Glucose, Plasma 123(H) 74 - 99 mg/dL 06/15/2025 5:12 PM EDT [facility] BUN, Plasma 19 8 - 23 mg/dL 06/15/2025 5:12 PM EDT [facility] Creatinine, Plasma 0.88 0.70 - 1.20 mg/dL 06/15/2025 5:12 PM EDT [facility] BUN/Creatinine Ratio 22 06/15/2025 5:12 PM EDT [facility] Sodium, Plasma 133(L) 136 - 145 mmol/L 06/15/2025 5:12 PM EDT [facility] Potassium, Plasma 3.9 3.6 - 4.9 mmol/L 06/15/2025 5:12 PM EDT [facility] Chloride, Plasma 102 97 - 107 mmol/L 06/15/2025 5:12 PM EDT [facility] CO2, Plasma 23 22 - 29 mmol/L 06/15/2025 5:12 PM EDT [facility] Anion Gap 8 6 - 16 mmol/L 06/15/2025 5:12 PM EDT [facility] Total Calcium, Plasma 8.6(L) 8.9 - 10.2 mg/dL 06/15/2025 5:12 PM EDT [facility] eGFRcr 93.1 mL/min/1.7 3m*2 06/15/2025 5:12 PM EDT [facility] Comment:Reported eGFRcr in m L/min/1.73m2 is based the CKD-EPI 2020 equation that does not use a race coefficient. Blood Venous blood specimen / Unknown Venipuncture / Unknown 06/15/2025 4:11 PM EDT 06/15/2025 4:39 PM EDT us Phillip Clark MD LAB BLOOD ORDERABLES Final R esult [facility] [address] [place] [address] * (ABNORMAL) POCT glucose meter (06/15/2025 12:14 [...] Comment 06/15/2025 12:16 PM EDT [facility] Dovetail Machine Operator ID Bony Thomas 025 12:16 PM EDT [facility] Device ID [id number] 06/15/2025 12:16 PM EDT [facility] Specimen Type POC Arterial 06/15/2025 12:16 PM EDT [facility] Blood Arterial blood specimen / Unknown 06/15/2025 12:14 PM EDT 06/15/2025 12:16 PM EDT us Phillip Clark MD LAB POINT OF CARE TE ST DOCKED DEVICE UNSOLICITED RESULTS Final Result Performing Organization Address City/State/[facility] Phone Number [facility] [address] [place] [address] * [place] [facility], E/M 30-74 MINUTES [...] POCT glucose meter (06/15/2025 8:24 AM EDT) [facility] POCT Glucose 129(H) 74 - 99 [...] Comment 06/15/2025 8:25 AM EDT [facility] Dovetail Machine Operator ID Bony Thomas 025 8:25 AM EDT [facility] Device ID [id number] 06/15/2025 8:25 AM EDT [facility] Specimen Type POC Arterial 06/15/2025 8:25 AM EDT [facility] Blood Arterial blood specimen / Unknown 06/15/2025 8:24 AM EDT 06/15/2025 8:25 AM EDT Phillip Clark MD LAB POINT OF CARE TE ST DOCKED DEVICE UNSOLICITED RESULTS Final Result Performing Organization Address City/State/[facility] Co de Phone Number [facility] [address] [place] [address] * (ABNORMAL) CBC and Differential (06/15/2025 8:18 AM EDT) [facility] WBC Count 12.56(H) 3.70 - 10.30 10*3/uL LAB HEMATOLOGY METHOD 06/15/2025 8:47 AM EDT [facility] RBC Count 4.60 4.60 - 6.10 10*6/uL LAB HEMATOLOGY METHOD 06/15/2025 8:47 AM EDT [facility] HGB 12.8(L) 13.7 - 17.5 g/dL LAB HEMATOLOGY METHOD 06/15/2025 8:47 AM EDT [facility] HCT 39.4(L) 40.0 - 51.0 % LAB HEMATOLOGY METHOD 06/15/2025 8:47 AM EDT [facility] Platelet Count 120(L) 155 - 369 10*3/uL LAB HEMATOLOGY METHOD 06/15/2025 8:47 AM EDT [facility] MCV 86 79 - 98 fL LAB HEMATOLOGY METHOD 06/15/2025 8:47 AM EDT [facility] MCH 27.8 26.0 - 32.0 pg LAB HEMATOLOGY METHOD 06/15/2025 8:47 AM EDT [facility] MCHC 32.5 30.7 - 35.5 g/dL LAB HEMATOLOGY METHOD 06/15/2025 8:47 AM EDT [facility] RDW 15.5(H) 11.5 - 14.5 % LAB HEMATOLOGY METHOD 06/15/2025 8:47 AM EDT [facility] MPV 10.6 8.8 - 12.5 fL LAB HEMATOLOGY METHOD 06/15/2025 8:47 AM EDT [facility] nRBC 0.0 <=0.0 per 100 WBCs LAB HEMATOLOGY METHOD 06/15/2025 8:47 AM EDT [facility] Differential Type Automated LAB HEMATOLOGY METHOD 06/15/2025 8:47 AM EDT [facility] Neutrophils % 84 % LAB HEMATOLOGY METHOD 06/15/2025 8:47 AM EDT [facility] Lymphocytes % 5 % LAB HEMATOLOGY METHOD 06/15/2025 8:47 AM EDT [facility] Monocytes % 10 % LAB HEMATOLOGY METHOD 06/15/2025 8:47 AM EDT [facility] Eosinophils % 0 % LAB HEMATOLOGY METHOD 06/15/2025 8:47 AM EDT [facility] Basophils % 0 % LAB HEMATOLOGY METHOD 06/15/2025 8:47 AM EDT [facility] Immature Granulocytes % 1 % LAB HEMATOLOGY METHOD 06/15/2025 8:47 AM EDT [facility] Neutrophils Absolute 10.59(H) 1.60 - 6.10 10*3/uL LAB HEMATOLOGY METHOD 06/15/2025 8:47 AM EDT [facility] Lymphocytes Absolute 0.60(L) 1.20 - 3.90 10*3/uL LAB HEMATOLOGY METHOD 06/15/2025 8:47 AM EDT [facility] Monocytes Absolute 1.29(H) 0.30 - 0.90 10*3/uL LAB HEMATOLOGY METHOD 06/15/2025 8:47 AM EDT [facility] Eosinophils Absolute 0.00 0.00 - 0.50 10*3/uL LAB HEMATOLOGY METHOD 06/15/2025 8:47 AM EDT [facility] Basophils Absolute 0.02 0.00 - 0.10 10*3/uL LAB HEMATOLOGY METHOD 06/15/2025 8:47 AM EDT [facility] Immature Granulocytes Absolute 0.06 0.00 - 0.06 10*3/uL LAB HEMATOLOGY METHOD 06/15/2025 8:47 AM EDT [facility] Blood Venous blood specimen / Unknown Venipuncture / Unknown 06/15/2025 8:18 AM EDT 06/15/2025 8:34 AM EDT Narrative [facility] - 06/15/2025 8:47 AM EDT Therapeutic decision making should be based on absolute values, rather than percentages. us Phillip Clark MD LAB BLOOD ORDERABLES Final R esult [facility] [address] [place] [address] * (ABNORMAL) Protime-INR (06/15/2025 6:40 AM EDT) Prothrombin Time 16.5(H) 12.0 - 14.3 sec LAB COAGULATION METHOD 06/15/2025 7:53 AM EDT [facility] INR 1.3(H) 0.9 - 1.1 LAB COAGULATION METHOD 06/15/2025 7:53 AM EDT [facility] Blood Arterial blood specimen / Unknown Venipuncture / Unknown 06/15/2025 6:40 AM EDT 06/15/2025 6:47 AM EDT Narrative [facility] - 06/15/2025 7:53 AM EDT OPTIMAL INR RANGES FOR PATIENT ON ORAL ANTICOAGULANT THERAPY Prevention of venous thromboembolism INR 2.0 to 3.0 In patients with heart disease: Atrial fibrillation INR 2.0 to 3.0 Valvular heart disease INR 2.0 to 3.0 Tissue heart valves INR 2.0 to 3.0 Mechanical prosthetic valves INR 2.5 to 3.5 Prevention of recurrent KS INR 2.5 to 3.5 us Phillip Clark MD LAB BLOOD ORDERABLES Final R esult Performing Organization Address [facility] Co de Phone Number [facility] [address] [place] [address] * Ionized calcium, whole blood (06/15/2025 6:40 AM EDT) Ionized Calcium, Whole Blood 4.6 4.6 - 5.1 mg/dL LAB HEMATOLOGY METHOD 06/15/2025 6:50 AM EDT [facility] Blood Arterial blood specimen / Unknown Venipuncture / Unknown 06/15/2025 6:40 AM EDT 06/15/2025 6:48 AM EDT Phillip Clark MD LAB BLOOD ORDERABLES Final R esult Performing Organization Address [facility] Co de Phone Number [facility] [address] [place] [address] * ECG Adult - POD 1 (06/15/2025 5:20 AM EDT) Pathologist [facility] EKG DIAGNOSIS CLASS Abnormal MUSE ECG Ventricular Rate 71 BPM MUSE ECG Atrial Rate 71 BPM MUSE ECG MI Interval 182 ms MUSE ECG QRSD Interval 108 ms MUSE ECG QT Interval 418 ms MUSE ECG QTC Interval 454 ms MUSE ECG P Barlow 51 degrees MUSE ECG R Barlow -48 degrees MUSE ECG T Wave Barlow -12 degrees MUSE ECG Diagnosis Normal sinus rhythm MUSE ECG Diagnosis Left anterior fascicular block MUSE ECG Diagnosis Abnormal ECG MUSE ECG Diagnosis MUSE ECG Diagnosis Confirmed by Bimal Brambila ([id number]) on 06/15/2025 11:38:57 AM MUSE ECG 06/15/2025 5:20 AM EDT 06/15/2025 11:38 AM EDT us Phillip Clark MD ECG ORDERABLES Final Result Performing Organization Address [facility] Co de Phone Number MUSE ECG * (ABNORMAL) Blood gas panel, arterial (06/15/2025 3:58 AM EDT) pH, Arterial 7.39 7.31 - 7.42 LAB HEMATOLOGY METHOD 06/15/2025 4:06 AM EDT [facility] pCO2, Arterial 39 32 - 45 mmHg LAB HEMATOLOGY METHOD 06/15/2025 4:06 AM EDT [facility] pO2, Arterial 79(L) >80 mmHg LAB HEMATOLOGY METHOD 06/15/2025 4:06 AM EDT [facility] SO2, Measured, Arterial 97 94 - 98 % LAB HEMATOLOGY METHOD 06/15/2025 4:06 AM EDT [facility] Base Excess, Arterial -1.2 -2.0 - 3.0 mmol/L LAB HEMATOLOGY METHOD 06/15/2025 4:06 AM EDT [facility] Bicarbonate, Calculated, Arterial 24 22 - 26 mmol/L LAB HEMATOLOGY METHOD 06/15/2025 4:06 AM EDT [facility] Hematocrit, Whole Blood 39.7(L) 40.0 - 51.0 % LAB HEMATOLOGY METHOD 06/15/2025 4:06 AM EDT [facility] Sodium, Whole Blood 134(L) 136 - 145 mmol/L LAB HEMATOLOGY METHOD 06/15/2025 4:06 AM EDT [facility] Potassium, Whole Blood 4.4 3.6 - 4.9 mmol/L LAB HEMATOLOGY METHOD 06/15/2025 4:06 AM EDT [facility] Chloride, Whole Blood 108(H) 97 - 107 mmol/L LAB HEMATOLOGY METHOD 06/15/2025 4:06 AM EDT [facility] Glucose, Whole Blood 132(H) 74 - 99 mg/dL LAB HEMATOLOGY METHOD 06/15/2025 4:06 AM EDT [facility] Ionized Calcium, Whole Blood 4.5(L) 4.6 - 5.1 mg/dL LAB HEMATOLOGY METHOD 06/15/2025 4:06 AM EDT [facility] Lactate, Arterial, Whole Blood 0.9 0.5 - 1.6 mmol/L LAB HEMATOLOGY METHOD 06/15/2025 4:06 AM EDT [facility] Blood Arterial blood specimen / Unknown Arterial Puncture / Unknown 06/15/2025 3:58 AM EDT 06/15/2025 4:06 AM EDT us Phillip Clark MD LAB BLOOD ORDERABLES Final R esult [facility] [address] [place] [address] * XR Chest 1 View (06/15/2025 2:53 [...] of NG tube. Right internal jugular approach Loring-Shira catheter and mediastinal drain in unchanged position. [...] LAB HEMATOLOGY METHOD 06/15/2025 8:17 AM EDT [facility] Neutrophils % 85 % LAB HEMATOLOGY METHOD 06/15/2025 8:17 AM EDT [facility] Lymphocytes % 4 % LAB HEMATOLOGY METHOD 06/15/2025 8:17 AM EDT [facility] Monocytes % 10 % LAB HEMATOLOGY METHOD 06/15/2025 8:17 AM EDT [facility] Eosinophils % 0 % LAB HEMATOLOGY METHOD 06/15/2025 8:17 AM EDT [facility] Basophils % 0 % LAB HEMATOLOGY METHOD 06/15/2025 8:17 AM EDT [facility] Immature Granulocytes % 1 % LAB HEMATOLOGY METHOD 06/15/2025 8:17 AM EDT [facility] Immature Granulocytes Absolute 0.05 0.00 - 0.06 10*3/uL LAB HEMATOLOGY METHOD 06/15/2025 8:17 AM EDT [facility] Neutrophils Absolute 9.28(H) 1.60 - 6.10 10*3/uL LAB HEMATOLOGY METHOD 06/15/2025 8:17 AM EDT [facility] Lymphocytes Absolute 0.45(L) 1.20 - 3.90 10*3/uL LAB HEMATOLOGY METHOD 06/15/2025 8:17 AM EDT [facility] Monocytes Absolute 1.14(H) 0.30 - 0.90 10*3/uL LAB HEMATOLOGY METHOD 06/15/2025 8:17 AM EDT [facility] Basophils Absolute 0.02 0.00 - 0.10 10*3/uL LAB HEMATOLOGY METHOD 06/15/2025 8:17 AM EDT [facility] Eosinophils Absolute 0.00 0.00 - 0.50 10*3/uL LAB HEMATOLOGY METHOD 06/15/2025 8:17 AM EDT [facility] Blood Venous blood specimen / Unknown Venipuncture / Unknown 06/15/2025 12:20 AM EDT 06/15/2025 12:26 AM EDT us Phillip Clark MD LAB BLOOD ORDERABLES Final R esult [facility] [address] [place] [address] * Phosphorus (06/15/2025 12:20 AM EDT) Phosphorus, Plasma 2.6 2.5 - 4.5 mg/dL 06/15/2025 8:33 AM EDT [facility] Blood Venous blood specimen / Unknown Venipuncture / Unknown 06/15/2025 12:20 AM EDT 06/15/2025 12:26 AM EDT Phillip Clark MD LAB BLOOD ORDERABLES Final R esult [facility] [address] [place] [address] * (ABNORMAL) Magnesium (06/15/2025 12:20 AM EDT) Magnesium, Plasma 2.5(H) 1.9 - 2.4 mg/dL 06/15/2025 7:37 AM EDT [facility] Blood Venous blood specimen / Unknown Venipuncture / Unknown 06/15/2025 12:20 AM EDT 06/15/2025 12:26 AM EDT us Phillip Clark MD LAB BLOOD ORDERABLES Final R esult [facility] [address] [place] [address] * (ABNORMAL) Basic metabolic panel (06/15/2025 12:20 AM EDT) Glucose, Plasma 140(H) 74 - 99 mg/dL 06/15/2025 7:37 AM EDT [facility] BUN, Plasma 17 8 - 23 mg/dL 06/15/2025 7:37 AM EDT [facility] Creatinine, Plasma 0.84 0.70 - 1.20 mg/dL 06/15/2025 7:37 AM EDT [facility] BUN/Creatinine Ratio 20 06/15/2025 7:37 AM EDT [facility] Sodium, Plasma 138 136 - 145 mmol/L 06/15/2025 7:37 AM EDT [facility] Potassium, Plasma 4.6 3.6 - 4.9 mmol/L 06/15/2025 7:37 AM EDT [facility] Chloride, Plasma 107 97 - 107 mmol/L 06/15/2025 7:37 AM EDT [facility] CO2, Plasma 18(L) 22 - 29 mmol/L 06/15/2025 7:37 AM EDT [facility] Anion Gap 13 6 - 16 mmol/L 06/15/2025 7:37 AM EDT [facility] Total Calcium, Plasma 8.0(L) 8.9 - 10.2 mg/dL 06/15/2025 7:37 AM EDT [facility] eGFRcr 94.4 mL/min/1.7 3m*2 06/15/2025 7:37 AM EDT [facility] Comment:Reported eGFRcr in m L/min/1.73m2 is based the CKD-EPI 2020 equation that does not use a race coefficient. Blood Venous blood specimen / Unknown Venipuncture / Unknown 06/15/2025 12:20 AM EDT 06/15/2025 12:26 AM EDT us Phillip Clark MD LAB BLOOD ORDERABLES Final R esult [facility] [address] [place] [address] * (ABNORMAL) CBC W/O Differential (06/15/2025 12:20 AM EDT) WBC Count 10.94(H) 3.70 - 10.30 10*3/uL LAB HEMATOLOGY METHOD 06/15/2025 8:32 AM EDT [facility] RBC Count 4.94 4.60 - 6.10 10*6/uL LAB HEMATOLOGY METHOD 06/15/2025 8:32 AM EDT [facility] HGB 13.6(L) 13.7 - 17.5 g/dL LAB HEMATOLOGY METHOD 06/15/2025 8:32 AM EDT [facility] HCT 41.0 40.0 - 51.0 % LAB HEMATOLOGY METHOD 06/15/2025 8:32 AM EDT [facility] Platelet Count 142(L) 155 - 369 10*3/uL LAB HEMATOLOGY METHOD 06/15/2025 8:32 AM EDT [facility] MCV 87 79 - 98 fL LAB HEMATOLOGY METHOD 06/15/2025 8:32 AM EDT [facility] MCH 27.5 26.0 - 32.0 pg LAB HEMATOLOGY METHOD 06/15/2025 8:32 AM EDT [facility] MCHC 31.8 30.7 - 35.5 g/dL LAB HEMATOLOGY METHOD 06/15/2025 8:32 AM EDT [facility] RDW 15.6(H) 11.5 - 14.5 % LAB HEMATOLOGY METHOD 06/15/2025 8:32 AM EDT [facility] MPV 11.1 8.8 - 12.5 fL LAB HEMATOLOGY METHOD 06/15/2025 8:32 AM EDT [facility] nRBC 0.0 <=0.0 per 100 WBCs LAB HEMATOLOGY METHOD 06/15/2025 8:32 AM EDT [facility] Blood Venous blood specimen / Unknown Venipuncture / Unknown 06/15/2025 12:20 AM EDT 06/15/2025 12:26 AM EDT Phillip Clark MD LAB BLOOD ORDERABLES Final R esult Performing Organization Address City/[facility]/ZIP Co de Phone Number [facility] [address] [place] [address] * Potassium, Plasma (06/15/2025 12:20 AM EDT) Potassium, Plasma 4.5 3.6 - 4.9 mmol/L 06/15/2025 12:51 AM EDT [facility] Blood Venous blood specimen / Unknown Venipuncture / Unknown 06/15/2025 12:20 AM EDT 06/15/2025 12:26 AM EDT Phillip Clark MD LAB BLOOD ORDERABLES Final R esult Performing Organization Address [facility]/ZIP Co de Phone Number [facility] [address] [place] [address] * Hematocrit (06/15/2025 12:20 AM EDT) HCT 41.0 40.0 - 51.0 % LAB HEMATOLOGY METHOD 06/15/2025 12:36 AM EDT [facility] Blood Venous blood specimen / Unknown Venipuncture / Unknown 06/15/2025 12:20 AM EDT 06/15/2025 12:26 AM EDT Phillip Clark MD LAB BLOOD ORDERABLES Final R esult Performing Organization Address City/[facility]/ZIP Co de Phone Number [facility] [address] [place] [address] * (ABNORMAL) Hemoglobin (06/15/2025 12:20 AM EDT) HGB 13.6(L) 13.7 - 17.5 g/dL LAB HEMATOLOGY METHOD 06/15/2025 12:36 AM EDT [facility] Blood Venous blood specimen / Unknown Venipuncture / Unknown 06/15/2025 12:20 AM EDT 06/15/2025 12:26 AM EDT us Phillip Clark MD LAB BLOOD ORDERABLES Final R esult [facility] [address] [place] [address] * (ABNORMAL) Blood gas, arterial (06/15/2025 12:20 AM EDT) pH, Arterial 7.37 7.31 - 7.42 LAB HEMATOLOGY METHOD 06/15/2025 12:37 AM EDT [facility] pCO2, Arterial 40 32 - 45 mmHg LAB HEMATOLOGY METHOD 06/15/2025 12:37 AM EDT [facility] pO2, Arterial 65(L) >80 mmHg LAB HEMATOLOGY METHOD 06/15/2025 12:37 AM EDT [facility] SO2, Measured, Arterial 94 94 - 98 % LAB HEMATOLOGY METHOD 06/15/2025 12:37 AM EDT [facility] Base Excess, Arterial -1.8 -2.0 - 3.0 mmol/L LAB HEMATOLOGY METHOD 06/15/2025 12:37 AM EDT [facility] Bicarbonate, Calculated, Arterial 23 22 - 26 mmol/L LAB HEMATOLOGY METHOD 06/15/2025 12:37 AM EDT [facility] Hematocrit, Whole Blood 41.1 40.0 - 51.0 % LAB HEMATOLOGY METHOD 06/15/2025 12:37 AM EDT [facility] Sodium, Whole Blood 137 136 - 145 mmol/L LAB HEMATOLOGY METHOD 06/15/2025 12:37 AM EDT [facility] Potassium, Whole Blood 4.2 3.6 - 4.9 mmol/L LAB HEMATOLOGY METHOD 06/15/2025 12:37 AM EDT [facility] Chloride, Whole Blood 110(H) 97 - 107 mmol/L LAB HEMATOLOGY METHOD 06/15/2025 12:37 AM EDT [facility] Glucose, Whole Blood 140(H) 74 - 99 mg/dL LAB HEMATOLOGY METHOD 06/15/2025 12:37 AM EDT [facility] Ionized Calcium, Whole Blood 4.5(L) 4.6 - 5.1 mg/dL LAB HEMATOLOGY METHOD 06/15/2025 12:37 AM EDT [facility] Lactate, Arterial, Whole Blood 1.8(H) 0.5 - 1.6 mmol/L LAB HEMATOLOGY METHOD 06/15/2025 12:37 AM EDT [facility] Blood Arterial blood specimen / Unknown Arterial Puncture / Unknown 06/15/2025 12:20 AM EDT 06/15/2025 12:34 AM EDT us Phillip Clark MD LAB BLOOD ORDERABLES Final R esult [facility] [address] [place] [address] * (ABNORMAL) Blood gas, arterial (06/14/2025 8:04 PM EDT) pH, Arterial 7.35 7.31 - 7.42 LAB HEMATOLOGY METHOD 06/14/2025 8:19 PM EDT [facility] pCO2, Arterial 39 32 - 45 mmHg LAB HEMATOLOGY METHOD 06/14/2025 8:19 PM EDT [facility] pO2, Arterial 88 >80 mmHg LAB HEMATOLOGY METHOD 06/14/2025 8:19 PM EDT [facility] SO2, Measured, Arterial 98 94 - 98 % LAB HEMATOLOGY METHOD 06/14/2025 8:19 PM EDT [facility] Base Excess, Arterial -3.7(L) -2.0 - 3.0 mmol/L LAB HEMATOLOGY METHOD 06/14/2025 8:19 PM EDT [facility] Bicarbonate, Calculated, Arterial 22 22 - 26 mmol/L LAB HEMATOLOGY METHOD 06/14/2025 8:19 PM EDT [facility] Hematocrit, Whole Blood 44.7 40.0 - 51.0 % LAB HEMATOLOGY METHOD 06/14/2025 8:19 PM EDT [facility] Sodium, Whole Blood 138 136 - 145 mmol/L LAB HEMATOLOGY METHOD 06/14/2025 8:19 PM EDT [facility] Potassium, Whole Blood 4.5 3.6 - 4.9 mmol/L LAB HEMATOLOGY METHOD 06/14/2025 8:19 PM EDT [facility] Chloride, Whole Blood 109(H) 97 - 107 mmol/L LAB HEMATOLOGY METHOD 06/14/2025 8:19 PM EDT [facility] Glucose, Whole Blood 185(H) 74 - 99 mg/dL LAB HEMATOLOGY METHOD 06/14/2025 8:19 PM EDT [facility] Ionized Calcium, Whole Blood 4.5(L) 4.6 - 5.1 mg/dL LAB HEMATOLOGY METHOD 06/14/2025 8:19 PM EDT [facility] Lactate, Arterial, Whole Blood 3.0(H) 0.5 - 1.6 mmol/L LAB HEMATOLOGY METHOD 06/14/2025 8:19 PM EDT [facility] Blood Arterial blood specimen / Unknown Arterial Puncture / Unknown 06/14/2025 8:04 PM EDT 06/14/2025 8:14 PM EDT us Phillip Clark MD LAB BLOOD ORDERABLES Final R esult [facility] [address] [place] [address] * Potassium (06/14/2025 8:03 PM EDT) Potassium, Plasma 4.9 3.6 - 4.9 mmol/L 06/14/2025 8:33 PM EDT [facility] Blood Arterial blood specimen / Unknown Venipuncture / Unknown 06/14/2025 8:03 PM EDT 06/14/2025 8:11 PM EDT us Phillip Clark MD LAB BLOOD ORDERABLES Final R esult [facility] [address] [place] [address] * (ABNORMAL) Magnesium (06/14/2025 8:03 PM EDT) Magnesium, Plasma 2.7(H) 1.9 - 2.4 mg/dL 06/14/2025 8:40 PM EDT [facility] Blood Arterial blood specimen / Unknown Venipuncture / Unknown 06/14/2025 8:03 PM EDT 06/14/2025 8:11 PM EDT us Phillip Clark MD LAB BLOOD ORDERABLES Final R esult [facility] [address] [place] [address] * (ABNORMAL) CBC (06/14/2025 8:03 PM EDT) WBC Count 13.98(H) 3.70 - 10.30 10*3/uL LAB HEMATOLOGY METHOD 06/14/2025 8:20 PM EDT [facility] RBC Count 5.14 4.60 - 6.10 10*6/uL LAB HEMATOLOGY METHOD 06/14/2025 8:20 PM EDT [facility] HGB 14.5 13.7 - 17.5 g/dL LAB HEMATOLOGY METHOD 06/14/2025 8:20 PM EDT [facility] HCT 43.9 40.0 - 51.0 % LAB HEMATOLOGY METHOD 06/14/2025 8:20 PM EDT [facility] Platelet Count 158 155 - 369 10*3/uL LAB HEMATOLOGY METHOD 06/14/2025 8:20 PM EDT [facility] MCV 85 79 - 98 fL LAB HEMATOLOGY METHOD 06/14/2025 8:20 PM EDT [facility] MCH 28.2 26.0 - 32.0 pg LAB HEMATOLOGY METHOD 06/14/2025 8:20 PM EDT [facility] MCHC 33.0 30.7 - 35.5 g/dL LAB HEMATOLOGY METHOD 06/14/2025 8:20 PM EDT [facility] RDW 14.9(H) 11.5 - 14.5 % LAB HEMATOLOGY METHOD 06/14/2025 8:20 PM EDT [facility] MPV 10.8 8.8 - 12.5 fL LAB HEMATOLOGY METHOD 06/14/2025 8:20 PM EDT [facility] nRBC 0.0 <=0.0 per 100 WBCs LAB HEMATOLOGY METHOD 06/14/2025 8:20 PM EDT [facility] Blood Arterial blood specimen / Unknown Venipuncture / Unknown 06/14/2025 8:03 PM EDT 06/14/2025 8:11 PM EDT us Phillip Clark MD LAB BLOOD ORDERABLES Final R esult [facility] [address] [place] [address] * (ABNORMAL) Basic metabolic panel (06/14/2025 8:03 PM EDT) Glucose, Plasma 194(H) 74 - 99 mg/dL 06/14/2025 8:40 PM EDT [facility] BUN, Plasma 16 8 - 23 mg/dL 06/14/2025 8:40 PM EDT [facility] Creatinine, Plasma 0.85 0.70 - 1.20 mg/dL 06/14/2025 8:40 PM EDT [facility] BUN/Creatinine Ratio 19 06/14/2025 8:40 PM EDT [facility] Sodium, Plasma 139 136 - 145 mmol/L 06/14/2025 8:40 PM EDT [facility] Potassium, Plasma 5.0(H) 3.6 - 4.9 mmol/L 06/14/2025 8:40 PM EDT [facility] Chloride, Plasma 109(H) 97 - 107 mmol/L 06/14/2025 8:40 PM EDT [facility] CO2, Plasma 20(L) 22 - 29 mmol/L 06/14/2025 8:40 PM EDT [facility] Anion Gap 10 6 - 16 mmol/L 06/14/2025 8:40 PM EDT [facility] Total Calcium, Plasma 8.2(L) 8.9 - 10.2 mg/dL 06/14/2025 8:40 PM EDT [facility] eGFRcr 94.1 mL/min/1.7 3m*2 06/14/2025 8:40 PM EDT [facility] Comment:Reported eGFRcr in m L/min/1.73m2 is based the CKD-EPI 2020 equation that does not use a race coefficient. Blood Arterial blood specimen / Unknown Venipuncture / Unknown 06/14/2025 8:03 PM EDT 06/14/2025 8:11 PM EDT us Phillip Clark MD LAB BLOOD ORDERABLES Final R esult [facility] [address] [place] [address] * (ABNORMAL) Blood gas panel, arterial (06/14/2025 6:47 PM EDT) pH, Arterial 7.30(L) 7.31 - 7.42 LAB HEMATOLOGY METHOD 06/14/2025 6:57 PM EDT [facility] pCO2, Arterial 41 32 - 45 mmHg LAB HEMATOLOGY METHOD 06/14/2025 6:57 PM EDT [facility] pO2, Arterial 70(L) >80 mmHg LAB HEMATOLOGY METHOD 06/14/2025 6:57 PM EDT [facility] SO2, Measured, Arterial 94 94 - 98 % LAB HEMATOLOGY METHOD 06/14/2025 6:57 PM EDT [facility] Base Excess, Arterial -5.6(L) -2.0 - 3.0 mmol/L LAB HEMATOLOGY METHOD 06/14/2025 6:57 PM EDT [facility] Bicarbonate, Calculated, Arterial 21(L) 22 - 26 mmol/L LAB HEMATOLOGY METHOD 06/14/2025 6:57 PM EDT [facility] Hematocrit, Whole Blood 45.5 40.0 - 51.0 % LAB HEMATOLOGY METHOD 06/14/2025 6:57 PM EDT [facility] Sodium, Whole Blood 138 136 - 145 mmol/L LAB HEMATOLOGY METHOD 06/14/2025 6:57 PM EDT [facility] Potassium, Whole Blood 4.4 3.6 - 4.9 mmol/L LAB HEMATOLOGY METHOD 06/14/2025 6:57 PM EDT [facility] Chloride, Whole Blood 109(H) 97 - 107 mmol/L LAB HEMATOLOGY METHOD 06/14/2025 6:57 PM EDT [facility] Glucose, Whole Blood 209(H) 74 - 99 mg/dL LAB HEMATOLOGY METHOD 06/14/2025 6:57 PM EDT [facility] Ionized Calcium, Whole Blood 4.6 4.6 - 5.1 mg/dL LAB HEMATOLOGY METHOD 06/14/2025 6:57 PM EDT [facility] Lactate, Arterial, Whole Blood 3.9(H) 0.5 - 1.6 mmol/L LAB HEMATOLOGY METHOD 06/14/2025 6:57 PM EDT [facility] Blood Arterial blood specimen / Unknown Arterial Puncture / Unknown 06/14/2025 6:47 PM EDT 06/14/2025 6:56 PM EDT us Phillip Clark MD LAB BLOOD ORDERABLES Final R esult [facility] [address] [place] [address] * [place] CRITICAL CARE, E/M 30-74 MINUTES [...] LAB HEMATOLOGY METHOD 06/14/2025 4:12 PM EDT [facility] pCO2, Arterial 43 32 - 45 mmHg LAB HEMATOLOGY METHOD 06/14/2025 4:12 PM EDT [facility] pO2, Arterial 126 >80 mmHg LAB HEMATOLOGY METHOD 06/14/2025 4:12 PM EDT [facility] SO2, Measured, Arterial 99(H) 94 - 98 % LAB HEMATOLOGY METHOD 06/14/2025 4:12 PM EDT [facility] Base Excess, Arterial -5.8(L) -2.0 - 3.0 mmol/L LAB HEMATOLOGY METHOD 06/14/2025 4:12 PM EDT [facility] Bicarbonate, Calculated, Arterial 21(L) 22 - 26 mmol/L LAB HEMATOLOGY METHOD 06/14/2025 4:12 PM EDT [facility] Hematocrit, Whole Blood 43.9 40.0 - 51.0 % LAB HEMATOLOGY METHOD 06/14/2025 4:12 PM EDT [facility] Sodium, Whole Blood 139 136 - 145 mmol/L LAB HEMATOLOGY METHOD 06/14/2025 4:12 PM EDT [facility] Potassium, Whole Blood 3.8 3.6 - 4.9 mmol/L LAB HEMATOLOGY METHOD 06/14/2025 4:12 PM EDT [facility] Chloride, Whole Blood 109(H) 97 - 107 mmol/L LAB HEMATOLOGY METHOD 06/14/2025 4:12 PM EDT [facility] Glucose, Whole Blood 179(H) 74 - 99 mg/dL LAB HEMATOLOGY METHOD 06/14/2025 4:12 PM EDT [facility] Ionized Calcium, Whole Blood 4.6 4.6 - 5.1 mg/dL LAB HEMATOLOGY METHOD 06/14/2025 4:12 PM EDT [facility] Lactate, Arterial, Whole Blood 4.3(H) 0.5 - 1.6 mmol/L LAB HEMATOLOGY METHOD 06/14/2025 4:12 PM EDT [facility] Blood Arterial blood specimen / Unknown Arterial Puncture / Unknown 06/14/2025 3:57 PM EDT 06/14/2025 4:11 PM EDT us Phillip Clark MD LAB BLOOD ORDERABLES Final R esult [facility] [address] [place] [address] * (ABNORMAL) Blood gas panel with oximetry, mixed venous (06/14/2025 3:00 PM EDT) pH, Mixed Venous 7.28(L) 7.32 - 7.43 LAB HEMATOLOGY METHOD 06/14/2025 3:24 PM EDT [facility] pCO2, Mixed Venous 47 40 - 55 mmHg LAB HEMATOLOGY METHOD 06/14/2025 3:24 PM EDT [facility] pO2, Mixed Venous 54(H) 25 - 40 mmHg LAB HEMATOLOGY METHOD 06/14/2025 3:24 PM EDT [facility] SO2, Measured, Mixed Venous 84(H) 65 - 80 % LAB HEMATOLOGY METHOD 06/14/2025 3:24 PM EDT [facility] Bicarbonate, Calculated, Mixed Venous 22 22 - 26 mmol/L LAB HEMATOLOGY METHOD 06/14/2025 3:24 PM EDT [facility] Base Excess, Mixed Venous -4.7(L) -2.0 - 3.0 mmol/L LAB HEMATOLOGY METHOD 06/14/2025 3:24 PM EDT [facility] Hematocrit, Whole Blood 43.0 40.0 - 51.0 % LAB HEMATOLOGY METHOD 06/14/2025 3:24 PM EDT [facility] Sodium, Whole Blood 139 136 - 145 mmol/L LAB HEMATOLOGY METHOD 06/14/2025 3:24 PM EDT [facility] Potassium, Whole Blood 3.7 3.6 - 4.9 mmol/L LAB HEMATOLOGY METHOD 06/14/2025 3:24 PM EDT [facility] Chloride, Whole Blood 110(H) 97 - 107 mmol/L LAB HEMATOLOGY METHOD 06/14/2025 3:24 PM EDT [facility] Ionized Calcium, Whole Blood 4.6 4.6 - 5.1 mg/dL LAB HEMATOLOGY METHOD 06/14/2025 3:24 PM EDT [facility] Glucose, Whole Blood 149(H) 74 - 99 mg/dL LAB HEMATOLOGY METHOD 06/14/2025 3:24 PM EDT [facility] Oxyhemoglobin, Mixed Venous, Whole Blood 81.9(H) 40.0 - 70.0 % LAB HEMATOLOGY METHOD 06/14/2025 3:24 PM EDT [facility] Hemoglobin Reduced, Mixed Venous, Whole Blood 16.1 % LAB HEMATOLOGY METHOD 06/14/2025 3:24 PM EDT [facility] Total Hemoglobin, Mixed Venous, Whole Blood 14.0 13.7 - 17.5 g/dL LAB HEMATOLOGY METHOD 06/14/2025 3:24 PM EDT [facility] Blood Mixed venous blood specimen / Unknown Venipuncture / Unknown 06/14/2025 3:00 PM EDT 06/14/2025 3:23 PM EDT us Phillip Clark MD LAB BLOOD ORDERABLES Final R esult [facility] [address] [place] [address] * XR Abdomen 1 View (06/14/2025 2:57 [...] Detected Not Detected 06/15/2025 12:46 PM EDT [facility] Swab (Axilla and Groin) Non-blood Collection / Unknown 06/14/2025 2:37 PM EDT 06/14/2025 3:10 PM EDT Narrative [facility] - 06/15/2025 12:46 PM EDT This PCR assay was developed and its performance characteristics determined by [facility] as appropriate for clinical purposes. This assay has not been cleared or approved by the FDA, but is performed in a CLIA regulated laboratory that is qualified to perform high-complexity testing. us Phillip Clark MD LAB MICROBIOLOGY - GENERAL O RDERABLES Final Result [facility] [address] [place] [address] * Multi Drug Resistance Test (06/14/2025 2:37 PM EDT) Culture No growth at day 1 06/15/2025 4:03 PM EDT [facility] Swab (Nares and Smita Rectal) Non-blood Collection / Unknown 06/14/2025 2:37 PM EDT 06/14/2025 3:10 PM EDT Narrative [facility] - 06/15/2025 4:03 PM EDT This test was developed and its performance characteristics determined by the [facility]. Although the media is FDA-approved, it is not FDA-approved for all specimen types submitted. The FDA has determined that such clearance or approval is not necessary. This test is used for surveillance purposes. It should not be regarded as investigational or for research. The [facility] is certified under the Clinical Laboratory Improvement Amendments of 1988 (CLIA-88) as qualified to perform high complexity clinical laboratory testing. us Phillip Clark MD LAB MICROBIOLOGY - GENERAL O RDERABLES Final Result [facility] [address] [place] [address] * (ABNORMAL) Blood gas, arterial (06/14/2025 2:37 PM EDT) pH, Arterial 7.31 7.31 - 7.42 LAB HEMATOLOGY METHOD 06/14/2025 2:58 PM EDT [facility] pCO2, Arterial 42 32 - 45 mmHg LAB HEMATOLOGY METHOD 06/14/2025 2:58 PM EDT [facility] pO2, Arterial 154 >80 mmHg LAB HEMATOLOGY METHOD 06/14/2025 2:58 PM EDT [facility] SO2, Measured, Arterial 100(H) 94 - 98 % LAB HEMATOLOGY METHOD 06/14/2025 2:58 PM EDT [facility] Base Excess, Arterial -5.1(L) -2.0 - 3.0 mmol/L LAB HEMATOLOGY METHOD 06/14/2025 2:58 PM EDT [facility] Bicarbonate, Calculated, Arterial 21(L) 22 - 26 mmol/L LAB HEMATOLOGY METHOD 06/14/2025 2:58 PM EDT [facility] Hematocrit, Whole Blood 43.5 40.0 - 51.0 % LAB HEMATOLOGY METHOD 06/14/2025 2:58 PM EDT [facility] Sodium, Whole Blood 139 136 - 145 mmol/L LAB HEMATOLOGY METHOD 06/14/2025 2:58 PM EDT [facility] Potassium, Whole Blood 3.6 3.6 - 4.9 mmol/L LAB HEMATOLOGY METHOD 06/14/2025 2:58 PM EDT [facility] Chloride, Whole Blood 110(H) 97 - 107 mmol/L LAB HEMATOLOGY METHOD 06/14/2025 2:58 PM EDT [facility] Glucose, Whole Blood 131(H) 74 - 99 mg/dL LAB HEMATOLOGY METHOD 06/14/2025 2:58 PM EDT [facility] Ionized Calcium, Whole Blood 4.7 4.6 - 5.1 mg/dL LAB HEMATOLOGY METHOD 06/14/2025 2:58 PM EDT [facility] Lactate, Arterial, Whole Blood 5.0(H) 0.5 - 1.6 mmol/L LAB HEMATOLOGY METHOD 06/14/2025 2:58 PM EDT [facility] Blood Arterial blood specimen / Unknown Arterial Puncture / Unknown 06/14/2025 2:37 PM EDT 06/14/2025 2:57 PM EDT us Phillip Clark MD LAB BLOOD ORDERABLES Final R esult [facility] [address] [place] [address] * ECG Adult - Upon Admissoin to CVICU (06/14/2025 2:36 PM EDT) EKG DIAGNOSIS CLASS Abnormal MUSE ECG Ventricular Rate 61 BPM MUSE ECG Atrial Rate 61 BPM MUSE ECG MI Interval 176 ms MUSE ECG QRSD Interval 154 ms MUSE ECG QT Interval 520 ms MUSE ECG QTC Interval 523 ms MUSE ECG P Barlow 58 degrees MUSE ECG R Barlow 113 degrees MUSE ECG T Wave Barlow -67 degrees MUSE ECG Diagnosis Sinus rhythm [...] ECG ORDERABLES Final Result Performing Organization Address [facility] Co de Phone Number MUSE ECG * Potassium, Plasma (06/14/2025 2:36 PM EDT) Potassium, Plasma 3.8 3.6 - 4.9 mmol/L 06/14/2025 4:13 PM EDT [facility] Comment:Hemolyzed, result ma y be falsely increased. Blood Venous blood specimen / Unknown Venipuncture / Unknown 06/14/2025 2:36 PM EDT 06/14/2025 3:20 PM EDT Phillip Clark MD LAB BLOOD ORDERABLES Final R esult Performing Organization Address [facility] de Phone Number [facility] [address] [place] [address] * Hematocrit (06/14/2025 2:36 PM EDT) HCT 42.6 40.0 - 51.0 % LAB HEMATOLOGY METHOD 06/14/2025 4:38 PM EDT [facility] Blood Venous blood specimen / Unknown Venipuncture / Unknown 06/14/2025 2:36 PM EDT 06/14/2025 4:17 PM EDT Result [facility] Phillip Clark MD LAB BLOOD ORDERABLES Final R esult Performing Organization Address [facility] Co de Phone Number [facility] [address] [place] [address] * Hemoglobin (06/14/2025 2:36 PM EDT) HGB 13.9 13.7 - 17.5 g/dL LAB HEMATOLOGY METHOD 06/14/2025 4:38 PM EDT [facility] Blood Venous blood specimen / Unknown Venipuncture / Unknown 06/14/2025 2:36 PM EDT 06/14/2025 4:17 PM EDT us Phillip Clark MD LAB BLOOD ORDERABLES Final R esult [facility] [address] [place] [address] * APTT (06/14/2025 2:36 PM EDT) aPTT 29 25 - 35 sec LAB COAGULATION METHOD 06/14/2025 4:11 PM EDT [facility] Blood Venous blood specimen / Unknown Venipuncture / Unknown 06/14/2025 2:36 PM EDT 06/14/2025 3:18 PM EDT us Phillip Clark MD LAB BLOOD ORDERABLES Final R esult Performing Organization Address City/[facility] Co de Phone Number [facility] [address] [place] [address] * (ABNORMAL) Protime-INR (06/14/2025 2:36 PM EDT) Prothrombin Time 16.6(H) 12.0 - 14.3 sec LAB COAGULATION METHOD 06/14/2025 4:11 PM EDT [facility] INR 1.3(H) 0.9 - 1.1 LAB COAGULATION METHOD 06/14/2025 4:11 PM EDT [facility] Blood Venous blood specimen / Unknown Venipuncture / Unknown 06/14/2025 2:36 PM EDT 06/14/2025 3:18 PM EDT Narrative [facility] - 06/14/2025 4:11 PM EDT OPTIMAL INR RANGES FOR PATIENT ON ORAL ANTICOAGULANT THERAPY Prevention of venous thromboembolism INR 2.0 to 3.0 In patients with heart disease: Atrial fibrillation INR 2.0 to 3.0 Valvular heart disease INR 2.0 to 3.0 Tissue heart valves INR 2.0 to 3.0 Mechanical prosthetic valves INR 2.5 to 3.5 Prevention of recurrent KS INR 2.5 to 3.5 Phillip Clark MD LAB BLOOD ORDERABLES Final R esult Performing Organization Address City/[facility]/ZIP Co de Phone Number [facility] [address] [place] [address] * (ABNORMAL) Phosphorus (06/14/2025 2:36 PM EDT) Pathologist [facility] Phosphorus, Plasma 2.3(L) 2.5 - 4.5 mg/dL 06/14/2025 4:13 PM EDT [facility] Blood Venous blood specimen / Unknown Venipuncture / Unknown 06/14/2025 2:36 PM EDT 06/14/2025 3:20 PM EDT Phillip Clark MD LAB BLOOD ORDERABLES Final R esult Performing Organization Address [facility] Co de Phone Number [facility] [address] [place] [address] * (ABNORMAL) Magnesium (06/14/2025 2:36 PM EDT) [facility] Magnesium, Plasma 3.2(H) 1.9 - 2.4 mg/dL 06/14/2025 6:55 PM EDT [facility] Blood Venous blood specimen / Unknown Venipuncture / Unknown 06/14/2025 2:36 PM EDT 06/14/2025 3:20 PM EDT us Phillip Clark MD LAB BLOOD ORDERABLES Final R esult Performing Organization Address City/[facility]/ZIP Co de Phone Number [facility] [address] [place] [address] * (ABNORMAL) Basic metabolic panel (06/14/2025 2:36 PM EDT) Glucose, Plasma 134(H) 74 - 99 mg/dL 06/14/2025 4:13 PM EDT [facility] BUN, Plasma 14 8 - 23 mg/dL 06/14/2025 4:13 PM EDT [facility] Creatinine, Plasma 0.83 0.70 - 1.20 mg/dL 06/14/2025 4:13 PM EDT [facility] BUN/Creatinine Ratio 17 06/14/2025 4:13 PM EDT [facility] Sodium, Plasma 140 136 - 145 mmol/L 06/14/2025 4:13 PM EDT [facility] Potassium, Plasma 3.8 3.6 - 4.9 mmol/L 06/14/2025 4:13 PM EDT [facility] Comment:Hemolyzed, result ma y be falsely increased. Chloride, Plasma 108(H) 97 - 107 mmol/L 06/14/2025 4:13 PM EDT [facility] CO2, Plasma 19(L) 22 - 29 mmol/L 06/14/2025 4:13 PM EDT [facility] Anion Gap 13 6 - 16 mmol/L 06/14/2025 4:13 PM EDT [facility] Total Calcium, Plasma 8.3(L) 8.9 - 10.2 mg/dL 06/14/2025 4:13 PM EDT [facility] eGFRcr 94.7 mL/min/1.7 3m*2 06/14/2025 4:13 PM EDT [facility] Comment:Reported eGFRcr in m L/min/1.73m2 is based the CKD-EPI 2020 equation that does not use a race coefficient. Blood Venous blood specimen / Unknown Venipuncture / Unknown 06/14/2025 2:36 PM EDT 06/14/2025 3:20 PM EDT us Phillip Clark MD LAB BLOOD ORDERABLES Final R esult [facility] [address] [place] [address] * (ABNORMAL) CBC (06/14/2025 2:36 PM EDT) WBC Count 15.83(H) 3.70 - 10.30 10*3/uL LAB HEMATOLOGY METHOD 06/14/2025 4:38 PM EDT [facility] RBC Count 4.98 4.60 - 6.10 10*6/uL LAB HEMATOLOGY METHOD 06/14/2025 4:38 PM EDT [facility] HGB 13.9 13.7 - 17.5 g/dL LAB HEMATOLOGY METHOD 06/14/2025 4:38 PM EDT [facility] HCT 42.6 40.0 - 51.0 % LAB HEMATOLOGY METHOD 06/14/2025 4:38 PM EDT [facility] Platelet Count 160 155 - 369 10*3/uL LAB HEMATOLOGY METHOD 06/14/2025 4:38 PM EDT [facility] MCV 86 79 - 98 fL LAB HEMATOLOGY METHOD 06/14/2025 4:38 PM EDT [facility] MCH 27.9 26.0 - 32.0 pg LAB HEMATOLOGY METHOD 06/14/2025 4:38 PM EDT [facility] MCHC 32.6 30.7 - 35.5 g/dL LAB HEMATOLOGY METHOD 06/14/2025 4:38 PM EDT [facility] RDW 15.2(H) 11.5 - 14.5 % LAB HEMATOLOGY METHOD 06/14/2025 4:38 PM EDT [facility] MPV 10.3 8.8 - 12.5 fL LAB HEMATOLOGY METHOD 06/14/2025 4:38 PM EDT [facility] nRBC 0.0 <=0.0 per 100 WBCs LAB HEMATOLOGY METHOD 06/14/2025 4:38 PM EDT [facility] Blood Venous blood specimen / Unknown Venipuncture / Unknown 06/14/2025 2:36 PM EDT 06/14/2025 4:17 PM EDT us Phillip Clark MD LAB BLOOD ORDERABLES Final R esult [facility] [address] [place] [address] * (ABNORMAL) POCT arterial blood gas gem (06/14/2025 2:00 PM EDT) pH, Arterial 7.35 7.31 - 7.42 06/14/2025 2:02 PM EDT [facility] pCO2, Arterial 38 32 - 45 mm Hg 06/14/2025 2:02 PM EDT [facility] pO2, Arterial 376 >80 mm Hg 06/14/2025 2:02 PM EDT [facility] SO2, Arterial 100(H) 94 - 98 % 06/14/2025 2:02 PM EDT [facility] Base Excess, Arterial -4.2(L) -2 - 3 mmol/L 06/14/2025 2:02 PM EDT [facility] HCO3, Arterial 21.0(L) 22 - 26 mmol/L 06/14/2025 2:02 PM EDT [facility] Total Hemoglobin, Arterial, Whole Blood 14.5 13.7 - 17.5 g/dL 06/14/2025 2:02 PM EDT [facility] Hematocrit, Arterial 44.0 40 - 51.0 % 06/14/2025 2:02 PM EDT [facility] Sodium, Arterial 136 136 - 145 mmol/L 06/14/2025 2:02 PM EDT [facility] Potassium, Arterial 3.4(L) 3.6 - 4.9 mmol/L 06/14/2025 2:02 PM EDT [facility] Chloride, Whole Blood 105 97 - 107 mmol/L 06/14/2025 2:02 PM EDT [facility] Glucose, Arterial 138(H) 74 - 99 mg/dL 06/14/2025 2:02 PM EDT [facility] Ionized Calcium, Arterial 4.9 4.6 - 5.1 mg/dL 06/14/2025 2:02 PM EDT [facility] Lactate, Arterial 4.2(H) 0.5 - 1.6 mmol/L 06/14/2025 2:02 PM EDT [facility] Body Temperature 37.0 Celsius 06/14/2025 2:02 PM EDT [facility] pH, Temp Corrected, Arterial 7.35 7.31 - 7.42 06/14/2025 2:02 PM EDT [facility] pCO2, Temp Corrected, Arterial 38 32 - 45 mm Hg 06/14/2025 2:02 PM EDT [facility] pO2, Temp Corrected, Arterial 376 >80 mm Hg 06/14/2025 2:02 PM EDT [facility] Dovetail Machine Operator ID Ricki Zamarripa 06/14/2025 2:02 PM EDT [facility] Blood Whole blood specimen / Unknown 06/14/2025 2:00 PM EDT 06/14/2025 2:02 PM EDT Phillip Clark MD LAB POINT OF CARE TE ST DOCKED DEVICE UNSOLICITED RESULTS Final Result [facility] [address] [place] [address] * (ABNORMAL) POCT arterial blood gas gem (06/14/2025 1:22 PM EDT) pH, Arterial 7.34 7.31 - 7.42 06/14/2025 1:23 PM EDT [facility] pCO2, Arterial 41 32 - 45 mm Hg 06/14/2025 1:23 PM EDT [facility] pO2, Arterial 518 >80 mm Hg 06/14/2025 1:23 PM EDT [facility] SO2, Arterial 100(H) 94 - 98 % 06/14/2025 1:23 PM EDT [facility] Base Excess, Arterial -3.5(L) -2 - 3 mmol/L 06/14/2025 1:23 PM EDT [facility] HCO3, Arterial 22.1 22 - 26 mmol/L 06/14/2025 1:23 PM EDT [facility] Total Hemoglobin, Arterial, Whole Blood 13.2(L) 13.7 - 17.5 g/dL 06/14/2025 1:23 PM EDT [facility] Hematocrit, Arterial 40.0 40 - 51.0 % 06/14/2025 1:23 PM EDT [facility] Sodium, Arterial 139 136 - 145 mmol/L 06/14/2025 1:23 PM EDT [facility] Potassium, Arterial 3.3(L) 3.6 - 4.9 mmol/L 06/14/2025 1:23 PM EDT [facility] Chloride, Whole Blood 104 97 - 107 mmol/L 06/14/2025 1:23 PM EDT [facility] Glucose, Arterial 137(H) 74 - 99 mg/dL 06/14/2025 1:23 PM EDT [facility] Ionized Calcium, Arterial 4.2(L) 4.6 - 5.1 mg/dL 06/14/2025 1:23 PM EDT [facility] Lactate, Arterial 3.0(H) 0.5 - 1.6 mmol/L 06/14/2025 1:23 PM EDT [facility] Body Temperature 37.0 Celsius 06/14/2025 1:23 PM EDT [facility] pH, Temp Corrected, Arterial 7.34 7.31 - 7.42 06/14/2025 1:23 PM EDT [facility] pCO2, Temp Corrected, Arterial 41 32 - 45 mm Hg 06/14/2025 1:23 PM EDT [facility] pO2, Temp Corrected, Arterial 518 >80 mm Hg 06/14/2025 1:23 PM EDT [facility] Dovetail Machine Operator ID Ricki Zamarripa 06/14/2025 1:23 PM EDT [facility] Blood Whole blood specimen / Unknown 06/14/2025 1:22 PM EDT 06/14/2025 1:23 PM EDT us Phililp Clark MD LAB POINT OF CARE TE ST DOCKED DEVICE UNSOLICITED RESULTS Final Result Performing Organization Address City/State/[facility] Co de Phone Number [facility] [address] [place] [address] * (ABNORMAL) POCT arterial blood gas gem (06/14/2025 12:52 PM EDT) pH, Arterial 7.40 7.31 - 7.42 06/14/2025 12:54 PM EDT [facility] pCO2, Arterial 35 32 - 45 mm Hg 06/14/2025 12:54 PM EDT [facility] pO2, Arterial 399 >80 mm Hg 06/14/2025 12:54 PM EDT [facility] SO2, Arterial 100(H) 94 - 98 % 06/14/2025 12:54 PM EDT [facility] Base Excess, Arterial -2.6(L) -2 - 3 mmol/L 06/14/2025 12:54 PM EDT [facility] HCO3, Arterial 21.7(L) 22 - 26 mmol/L 06/14/2025 12:54 PM EDT [facility] Total Hemoglobin, Arterial, Whole Blood 11.7(L) 13.7 - 17.5 g/dL 06/14/2025 12:54 PM EDT [facility] Hematocrit, Arterial 35.0(L) 40 - 51.0 % 06/14/2025 12:54 PM EDT [facility] Sodium, Arterial 134(L) 136 - 145 mmol/L 06/14/2025 12:54 PM EDT [facility] Potassium, Arterial 4.2 3.6 - 4.9 mmol/L 06/14/2025 12:54 PM EDT [facility] Chloride, Whole Blood 107 97 - 107 mmol/L 06/14/2025 12:54 PM EDT [facility] Glucose, Arterial 148(H) 74 - 99 mg/dL 06/14/2025 12:54 PM EDT [facility] Ionized Calcium, Arterial 4.1(L) 4.6 - 5.1 mg/dL 06/14/2025 12:54 PM EDT [facility] Lactate, Arterial 2.2(H) 0.5 - 1.6 mmol/L 06/14/2025 12:54 PM EDT [facility] Body Temperature 37.0 Celsius 06/14/2025 12:54 PM EDT [facility] pH, Temp Corrected, Arterial 7.40 7.31 - 7.42 06/14/2025 12:54 PM EDT [facility] pCO2, Temp Corrected, Arterial 35 32 - 45 mm Hg 06/14/2025 12:54 PM EDT [facility] pO2, Temp Corrected, Arterial 399 >80 mm Hg 06/14/2025 12:54 PM EDT [facility] Dovetail Machine Operator ID Jean Claude Staley 06/14/2025 12:54 PM EDT [facility] Blood Whole blood specimen / Unknown 06/14/2025 12:52 PM EDT 06/14/2025 12:54 PM EDT Phillip Clark MD LAB POINT OF CARE TE ST DOCKED DEVICE UNSOLICITED RESULTS Final Result [facility] [address] [place] [address] * POCT ACT (06/14/2025 12:43 PM EDT) ACT+ (HIGH RANGE) 98 68 - 600 Seconds 06/14/2025 12:49 PM EDT [facility] Dovetail Machine Operator ID Vick Dupont 06/14/2025 12:49 PM EDT [facility] ACT Device ID [id number] 06/14/2025 12:49 PM EDT [facility] Comment 06/14/2025 12:49 PM EDT [facility] Comment: ACT performed by staff [...] ST DOCKED DEVICE UNSOLICITED RESULTS Final Result [facility] [address] LAB [address] [place] [address] * (ABNORMAL) POCT arterial blood gas gem (06/14/2025 12:16 PM EDT) pH, Arterial 7.42 7.31 - 7.42 06/14/2025 12:19 PM EDT [facility] pCO2, Arterial 36 32 - 45 mm Hg 06/14/2025 12:19 PM EDT [facility] pO2, Arterial 358 >80 mm Hg 06/14/2025 12:19 PM EDT [facility] SO2, Arterial 99(H) 94 - 98 % 06/14/2025 12:19 PM EDT [facility] Base Excess, Arterial -0.8 -2 - 3 mmol/L 06/14/2025 12:19 PM EDT [facility] HCO3, Arterial 23.4 22 - 26 mmol/L 06/14/2025 12:19 PM EDT [facility] Total Hemoglobin, Arterial, Whole Blood 11.3(L) 13.7 - 17.5 g/dL 06/14/2025 12:19 PM EDT [facility] Hematocrit, Arterial 34.0(L) 40 - 51.0 % 06/14/2025 12:19 PM EDT [facility] Sodium, Arterial 134(L) 136 - 145 mmol/L 06/14/2025 12:19 PM EDT [facility] Potassium, Arterial 5.7(H) 3.6 - 4.9 mmol/L 06/14/2025 12:19 PM EDT [facility] Chloride, Whole Blood 105 97 - 107 mmol/L 06/14/2025 12:19 PM EDT [facility] Glucose, Arterial 119(H) 74 - 99 mg/dL 06/14/2025 12:19 PM EDT [facility] Ionized Calcium, Arterial 4.0(L) 4.6 - 5.1 mg/dL 06/14/2025 12:19 PM EDT [facility] Lactate, Arterial 1.6 0.5 - 1.6 mmol/L 06/14/2025 12:19 PM EDT [facility] Body Temperature 37.0 Celsius 06/14/2025 12:19 PM EDT [facility] pH, Temp Corrected, Arterial 7.42 7.31 - 7.42 06/14/2025 12:19 PM EDT [facility] pCO2, Temp Corrected, Arterial 36 32 - 45 mm Hg 06/14/2025 12:19 PM EDT [facility] pO2, Temp Corrected, Arterial 358 >80 mm Hg 06/14/2025 12:19 PM EDT [facility] Dovetail Machine Operator ID Vick Dupont 06/14/2025 12:19 PM EDT [facility] Blood Whole blood specimen / Unknown 06/14/2025 12:16 PM EDT 06/14/2025 12:19 PM EDT us Phillip Clark MD LAB POINT OF CARE TE ST DOCKED DEVICE UNSOLICITED RESULTS Final Result Performing Organization Address City/State/[facility] Co de Phone Number [facility] [address] [place] [phone] * (ABNORMAL) POCT arterial blood gas gem (06/14/2025 12:06 PM EDT) pH, Arterial 7.39 7.31 - 7.42 06/14/2025 12:09 PM EDT [facility] pCO2, Arterial 40 32 - 45 mm Hg 06/14/2025 12:09 PM EDT [facility] pO2, Arterial 378 >80 mm Hg 06/14/2025 12:09 PM EDT [facility] SO2, Arterial 100(H) 94 - 98 % 06/14/2025 12:09 PM EDT [facility] Base Excess, Arterial -0.7 -2 - 3 mmol/L 06/14/2025 12:09 PM EDT [facility] HCO3, Arterial 24.2 22 - 26 mmol/L 06/14/2025 12:09 PM EDT [facility] Total Hemoglobin, Arterial, Whole Blood 11.5(L) 13.7 - 17.5 g/dL 06/14/2025 12:09 PM EDT [facility] Hematocrit, Arterial 35.0(L) 40 - 51.0 % 06/14/2025 12:09 PM T [facility] Sodium, Arterial 134(L) 136 - 145 mmol/L 06/14/2025 12:09 PM EDT [facility] Potassium, Arterial 5.0(H) 3.6 - 4.9 mmol/L 06/14/2025 12:09 [facility] Chloride, Whole Blood 105 97 - 107 mmol/L 06/14/2025 12:09 PM T [facility] Glucose, Arterial 123(H) 74 - 99 mg/dL 06/14/2025 12:09 PM T [facility] Ionized Calcium, Arterial 4.2(L) 4.6 - 5.1 mg/dL 06/14/2025 12:09 PM T [facility] Lactate, Arterial 1.2 0.5 - 1.6 mmol/L 06/14/2025 12:09 PM T [facility] Body Temperature 37.0 Celsius 06/14/2025 12:09 PM T [facility] pH, Temp Corrected, Arterial 7.39 7.31 - 7.42 06/14/2025 12:09 PM T [facility] pCO2, Temp Corrected, Arterial 40 32 - 45 mm Hg 06/14/2025 12:09 PM T [facility] pO2, Temp Corrected, Arterial 378 >80 mm Hg 06/14/2025 12:09 PM EDT [facility] Dovetail Machine Operator ID Cresencio, Vick 06/14/2025 12:09 PM T [facility] Blood Whole blood specimen / Unknown 06/14/2025 12:06 PM EDT 06/14/2025 12:09 PM EDT Phillip Clark MD LAB POINT OF CARE TE ST DOCKED DEVICE UNSOLICITED RESULTS Final Result Performing Organization Address [facility] Co de Phone Number [facility] [address] [place] [address] * (ABNORMAL) QPLUS (06/14/2025 11:55 AM EDT) Clot Time 06/14/2025 12:12 PM EDT [facility] Clot Time Ratio 12:12 PM EDT [facility] POCT Clot Stiffness 14.6 13.0 - 33.2 hectoPascals 06/14/2025 12:12 PM EDT [facility] Platelet Contribution to Clot Stiffnes 13.1 11.9 - 29.8 hectoPascals 06/14/2025 12:12 PM EDT [facility] Fibrinogen Contribution to Clot Stiffness 1.5 1.0 - 3.7 hectoPascals 06/14/2025 12:12 PM EDT [facility] Heparinase Clot Time 175(H) 103 - 153 Seconds 06/14/2025 12:12 PM EDT [facility] Dovetail Machine Operator ID Ricki Zamarripa 06/14/2025 12:12 PM EDT [facility] Device ID [id number] 06/14/2025 12:12 PM EDT [facility] Whole Blood 06/14/2025 11:5 5 AM EDT 06/14/2025 12:12 PM EDT Narrative [facility] - 06/14/2025 12:[address]: No Clot Detected Phillip Clark MD LAB POINT OF CARE TE ST DOCKED DEVICE UNSOLICITED RESULTS Final Result Performing Organization Address City/[facility]/ZIP Co de Phone Number [facility] [address] [place] [address] * POCT ACT (06/14/2025 11:54 AM EDT) ACT+ (HIGH RANGE) 510 68 - 600 Seconds 06/14/2025 12:07 PM EDT [facility] Dovetail Machine Operator ID Vick Dupont 06/14/2025 12:07 PM EDT [facility] ACT Device ID [id number] 06/14/2025 12:07 PM EDT [facility] Comment 06/14/2025 12:07 PM EDT [facility] Comment: ACT performed by staff [...] ST DOCKED DEVICE UNSOLICITED RESULTS Final Result [facility] [address] LAB [address] [place] [address] * (ABNORMAL) POCT arterial blood gas gem (06/14/2025 11:33 AM EDT) pH, Arterial 7.37 7.31 - 7.42 06/14/2025 11:35 AM EDT [facility] pCO2, Arterial 43 32 - 45 mm Hg 06/14/2025 11:35 AM EDT [facility] pO2, Arterial 380 >80 mm Hg 06/14/2025 11:35 AM EDT [facility] SO2, Arterial 99(H) 94 - 98 % 06/14/2025 11:35 AM EDT [facility] Base Excess, Arterial -0.5 -2 - 3 mmol/L 06/14/2025 11:35 AM EDT [facility] HCO3, Arterial 24.9 22 - 26 mmol/L 06/14/2025 11:35 AM EDT [facility] Total Hemoglobin, Arterial, Whole Blood 11.5(L) 13.7 - 17.5 g/dL 06/14/2025 11:35 AM EDT [facility] Hematocrit, Arterial 35.0(L) 40 - 51.0 % 06/14/2025 11:35 AM EDT [facility] Sodium, Arterial 134(L) 136 - 145 mmol/L 06/14/2025 11:35 AM EDT [facility] Potassium, Arterial 5.6(H) 3.6 - 4.9 mmol/L 06/14/2025 11:35 AM EDT [facility] Chloride, Whole Blood 103 97 - 107 mmol/L 06/14/2025 11:35 AM EDT [facility] Glucose, Arterial 123(H) 74 - 99 mg/dL 06/14/2025 11:35 AM EDT [facility] Ionized Calcium, Arterial 4.2(L) 4.6 - 5.1 mg/dL 06/14/2025 11:35 AM EDT [facility] Lactate, Arterial 1.0 0.5 - 1.6 mmol/L 06/14/2025 11:35 AM EDT [facility] Body Temperature 37.0 Celsius 06/14/2025 11:35 AM EDT [facility] pH, Temp Corrected, Arterial 7.37 7.31 - 7.42 06/14/2025 11:35 AM EDT [facility] pCO2, Temp Corrected, Arterial 43 32 - 45 mm Hg 06/14/2025 11:35 AM EDT [facility] pO2, Temp Corrected, Arterial 380 >80 mm Hg 06/14/2025 11:35 AM EDT [facility] Dovetail Machine Operator ID Vick Dupont 06/14/2025 11:35 AM EDT [facility] Blood Whole blood specimen / Unknown 06/14/2025 11:33 AM EDT 06/14/2025 11:35 AM EDT Phillip Clark MD LAB POINT OF CARE TE ST DOCKED DEVICE UNSOLICITED RESULTS Final Result Performing Organization Address City/State/[facility] Co de Phone Number [facility] [address] [place] [address] * POCT ACT (06/14/2025 11:24 AM EDT) [facility] Signature ACT+ (HIGH RANGE) 520 68 - 600 Seconds 06/14/2025 11:37 AM EDT [facility] Dovetail Machine Operator ID Vick Dupont 06/14/2025 11:37 AM EDT [facility] ACT Device ID [id number] 06/14/2025 11:37 AM EDT [facility] Comment 06/14/2025 11:37 AM EDT [facility] Comment: ACT performed by staff [...] ST DOCKED DEVICE UNSOLICITED RESULTS Final Result [facility] [address] LAB [address] [place] [address] * (ABNORMAL) POCT arterial blood gas gem (06/14/2025 11:03 AM EDT) pH, Arterial 7.40 7.31 - 7.42 06/14/2025 11:04 AM EDT [facility] pCO2, Arterial 41 32 - 45 mm Hg 06/14/2025 11:04 AM EDT [facility] pO2, Arterial 406 >80 mm Hg 06/14/2025 11:04 AM EDT [facility] SO2, Arterial 100(H) 94 - 98 % 06/14/2025 11:04 AM EDT [facility] Base Excess, Arterial 0.5 -2 - 3 mmol/L 06/14/2025 11:04 AM EDT [facility] HCO3, Arterial 25.4 22 - 26 mmol/L 06/14/2025 11:04 AM EDT [facility] Total Hemoglobin, Arterial, Whole Blood 11.9(L) 13.7 - 17.5 g/dL 06/14/2025 11:04 AM EDT [facility] Hematocrit, Arterial 36.0(L) 40 - 51.0 % 06/14/2025 11:04 AM EDT [facility] Sodium, Arterial 133(L) 136 - 145 mmol/L 06/14/2025 11:04 AM EDT [facility] Potassium, Arterial 5.3(H) 3.6 - 4.9 mmol/L 06/14/2025 11:04 AM EDT [facility] Chloride, Whole Blood 103 97 - 107 mmol/L 06/14/2025 11:04 AM EDT [facility] Glucose, Arterial 121(H) 74 - 99 mg/dL 06/14/2025 11:04 AM EDT [facility] Ionized Calcium, Arterial 4.2(L) 4.6 - 5.1 mg/dL 06/14/2025 11:04 AM EDT [facility] Lactate, Arterial 1.0 0.5 - 1.6 mmol/L 06/14/2025 11:04 AM EDT [facility] Body Temperature 37.0 Celsius 06/14/2025 11:04 AM EDT [facility] pH, Temp Corrected, Arterial 7.40 7.31 - 7.42 06/14/2025 11:04 AM EDT [facility] pCO2, Temp Corrected, Arterial 41 32 - 45 mm Hg 06/14/2025 11:04 AM EDT [facility] pO2, Temp Corrected, Arterial 406 >80 mm Hg 06/14/2025 11:04 AM EDT [facility] Dovetail Machine Operator ID Vick Dupont 06/14/2025 11:04 AM EDT [facility] Blood Whole blood specimen / Unknown 06/14/2025 11:03 AM EDT 06/14/2025 11:04 AM EDT us Phillpi Clark MD LAB POINT OF CARE TE ST DOCKED DEVICE UNSOLICITED RESULTS Final Result [facility] [address] [place] [address] * POCT ACT (06/14/2025 10:57 AM EDT) ACT+ (HIGH RANGE) 569 68 - 600 Seconds 06/14/2025 11:09 AM EDT [facility] Dovetail Machine Operator ID Vick Dupont 06/14/2025 11:09 AM EDT [facility] ACT Device ID [id number] 06/14/2025 11:09 AM EDT [facility] Comment 06/14/2025 11:09 AM EDT [facility] Comment: ACT performed by staff [...] ST DOCKED DEVICE UNSOLICITED RESULTS Final Result [facility] [address] LAB [address] [place] [address] * (ABNORMAL) POCT arterial blood gas gem (06/14/2025 10:33 AM EDT) pH, Arterial 7.39 7.31 - 7.42 06/14/2025 10:34 AM EDT [facility] pCO2, Arterial 41 32 - 45 mm Hg 06/14/2025 10:34 AM EDT [facility] pO2, Arterial 349 >80 mm Hg 06/14/2025 10:34 AM EDT [facility] SO2, Arterial 99(H) 94 - 98 % 06/14/2025 10:34 AM EDT [facility] Base Excess, Arterial -0.2 -2 - 3 mmol/L 06/14/2025 10:34 AM EDT [facility] HCO3, Arterial 24.8 22 - 26 mmol/L 06/14/2025 10:34 AM EDT [facility] Total Hemoglobin, Arterial, Whole Blood 10.9(L) 13.7 - 17.5 g/dL 06/14/2025 10:34 AM EDT [facility] Hematocrit, Arterial 33.0(L) 40 - 51.0 % 06/14/2025 10:34 AM EDT [facility] Sodium, Arterial 135(L) 136 - 145 mmol/L 06/14/2025 10:34 AM EDT [facility] Potassium, Arterial 4.8 3.6 - 4.9 mmol/L 06/14/2025 10:34 AM EDT [facility] Chloride, Whole Blood 103 97 - 107 mmol/L 06/14/2025 10:34 AM EDT [facility] Glucose, Arterial 116(H) 74 - 99 mg/dL 06/14/2025 10:34 AM EDT [facility] Ionized Calcium, Arterial 4.1(L) 4.6 - 5.1 mg/dL 06/14/2025 10:34 AM EDT [facility] Lactate, Arterial 1.3 0.5 - 1.6 mmol/L 06/14/2025 10:34 AM EDT [facility] Body Temperature 37.0 Celsius 06/14/2025 10:34 AM EDT [facility] pH, Temp Corrected, Arterial 7.39 7.31 - 7.42 06/14/2025 10:34 AM EDT [facility] pCO2, Temp Corrected, Arterial 41 32 - 45 mm Hg 06/14/2025 10:34 AM EDT [facility] pO2, Temp Corrected, Arterial 349 >80 mm Hg 06/14/2025 10:34 AM EDT [facility] Dovetail Machine Operator ID Vick Dupont 06/14/2025 10:34 AM EDT [facility] Blood Whole blood specimen / Unknown 06/14/2025 10:33 AM EDT 06/14/2025 10:34 AM EDT Phillip Clark MD LAB POINT OF CARE TE ST DOCKED DEVICE UNSOLICITED RESULTS Final Result [facility] [address] [place] [address] * (ABNORMAL) POCT ACT (06/14/2025 10:26 AM EDT) ACT+ (HIGH RANGE) >600(H) 68 - 600 Seconds 06/14/2025 10:40 AM EDT [facility] Dovetail Machine Operator ID Vick Dupont 06/14/2025 10:40 AM EDT [facility] ACT Device ID [id number] 06/14/2025 10:40 AM EDT [facility] Comment 06/14/2025 10:40 AM EDT [facility] Comment: ACT performed by staff [...] ST DOCKED DEVICE UNSOLICITED RESULTS Final Result [facility] [address] LAB [address] [place] [address] * Surgical Pathology Exam (06/14/2025 10:18 AM EDT) Case Report Surgical Pathology Case: [id number] Authorizing Provider: Phillip Clark MD Collected: 06/14/2025 1018 Ordering Location: [facility] A OPERATING ROOM Received: 06/14/2025 1413 Pathologist: Beth Lake MD Specimen: Heart, aortic valve leaflets 06/15/2025 11:44 AM EDT [facility] Final Diagnosis A. AORTIC VALVE LEAFLETS, REPLACEMENT: - FIBROSIS AND MYXOID DEGENERATION. 06/15/2025 11:44 AM EDT [facility] at 1144 EDT Clinical Information Severe aortic regurgitation [I35.1] 06/15/2025 11:44 AM EDT [facility] Gross Description A. AORTIC VALVE LEAFLETS Received fresh and placed in formalin labeled aortic valve leaflets are 2 white-montez soft cardiac leaflets ranging in size from 2.5-4.0 cm in greatest dimension. Construction Checker sections are submitted in cassette A1. Cold Time: 3h 55m April Santos 06/15/2025 11:44 AM EDT [facility] Tissue Heart structure / Unknown 06/14/2025 10:18 AM EDT 06/14/2025 2:13 PM EDT Comment:Pre-op diagnosis: Severe aortic regurgitation [I35.1] us Phillip Clark MD LAB PATHOLOGY ORDERABLES Fin al Result Performing Organization Address City/[facility]/ZIP Co de Phone Number [facility] [address] [place] [address] * (ABNORMAL) POCT arterial blood gas gem (06/14/2025 10:08 AM EDT) pH, Arterial 7.40 7.31 - 7.42 06/14/2025 10:17 AM [facility] pCO2, Arterial 40 32 - 45 mm Hg 06/14/2025 10:17 AM [facility] pO2, Arterial 410 >80 mm Hg 06/14/2025 10:17 AM [facility] SO2, Arterial 100(H) 94 - 98 % 06/14/2025 10:17 AM [facility] Base Excess, Arterial 0.0 -2 - 3 mmol/L 06/14/2025 10:17 AM [facility] HCO3, Arterial 24.8 22 - 26 mmol/L 06/14/2025 10:17 AM [facility] Total Hemoglobin, Arterial, Whole Blood 10.1(L) 13.7 - 17.5 g/dL 06/14/2025 10:17 AM [facility] Hematocrit, Arterial 30.0(L) 40 - 51.0 % 06/14/2025 10:17 AM [facility] Sodium, Arterial 133(L) 136 - 145 mmol/L 06/14/2025 10:17 AM [facility] Potassium, Arterial 4.7 3.6 - 4.9 mmol/L 06/14/2025 10:17 AM [facility] Chloride, Whole Blood 104 97 - 107 mmol/L 06/14/2025 10:17 AM [facility] Glucose, Arterial 122(H) 74 - 99 mg/dL 06/14/2025 10:17 AM [facility] Ionized Calcium, Arterial 3.9(L) 4.6 - 5.1 mg/dL 06/14/2025 10:17 AM [facility] Lactate, Arterial 1.5 0.5 - 1.6 mmol/L 06/14/2025 10:17 AM [facility] Body Temperature 37.0 Celsius 06/14/2025 10: AM [facility] pH, Temp Corrected, Arterial 7.40 7.31 - 7.42 06/14/2025 10:17 AM [facility] pCO2, Temp Corrected, Arterial 40 32 - 45 mm Hg 06/14/2025 10:17 AM [facility] pO2, Temp Corrected, Arterial 410 >80 mm Hg 06/14/2025 10:17 AM EDT [facility] Dovetail Machine Operator ID Vick Dupont 06/14/2025 10:17 AM EDT [facility] Blood Whole blood specimen / Unknown 06/14/2025 10:08 AM EDT 06/14/2025 10:17 AM EDT Phillip Clark MD LAB POINT OF CARE TE ST DOCKED DEVICE UNSOLICITED RESULTS Final Result Performing Organization Address City/[facility] Co de Phone Number [facility] [address] [place] [address] * (ABNORMAL) POCT ACT (06/14/2025 10:04 AM EDT) ACT+ (HIGH RANGE) >600(H) 68 - 600 Seconds 06/14/2025 10:19 AM EDT [facility] Dovetail Machine Operator ID Vick Dupont 06/14/2025 10:19 AM EDT [facility] ACT Device ID [id number] 06/14/2025 10:19 AM EDT [facility] Comment 06/14/2025 10:19 AM EDT [facility] Comment: ACT performed by staff [...] UNSOLICITED RESULTS Final Result Performing Organization Address City/[facility]/ZIP Co de Phone Number [facility] [address] [place], [place] [id number] [place] [address] LAB [address] [place] [address] * POCT ACT (06/14/2025 8:13 AM EDT) ACT+ (HIGH RANGE) 90 68 - 600 Seconds 06/14/2025 8:20 AM EDT [facility] Dovetail Machine Operator ID Kevin Hernandez 06/14/2025 8:20 AM EDT [facility] ACT Device ID [id number] 06/14/2025 8:20 AM EDT [facility] Comment 06/14/2025 8:20 AM EDT [facility] Comment: ACT performed by staff [...] ST DOCKED DEVICE UNSOLICITED RESULTS Final Result [facility] [address] LAB [address] [place] [address] * (ABNORMAL) POCT arterial blood gas gem (06/14/2025 8:13 AM EDT) pH, Arterial 7.38 7.31 - 7.42 06/14/2025 8:15 AM EDT [facility] pCO2, Arterial 40 32 - 45 mm Hg 06/14/2025 8:15 AM EDT [facility] pO2, Arterial 91 >80 mm Hg 06/14/2025 8:15 AM EDT [facility] SO2, Arterial 99(H) 94 - 98 % 06/14/2025 8:15 AM EDT [facility] Base Excess, Arterial -1.3 -2 - 3 mmol/L 06/14/2025 8:15 AM EDT [facility] HCO3, Arterial 23.7 22 - 26 mmol/L 06/14/2025 8:15 AM EDT [facility] Total Hemoglobin, Arterial, Whole Blood 14.5 13.7 - 17.5 g/dL 06/14/2025 8:15 AM EDT [facility] Hematocrit, Arterial 44.0 40 - 51.0 % 06/14/2025 8:15 AM EDT [facility] Sodium, Arterial 135(L) 136 - 145 mmol/L 06/14/2025 8:15 AM EDT [facility] Potassium, Arterial 4.1 3.6 - 4.9 mmol/L 06/14/2025 8:15 AM EDT [facility] Chloride, Whole Blood 103 97 - 107 mmol/L 06/14/2025 8:15 AM EDT [facility] Glucose, Arterial 95 74 - 99 mg/dL 06/14/2025 8:15 AM EDT [facility] Ionized Calcium, Arterial 4.7 4.6 - 5.1 mg/dL 06/14/2025 8:15 AM EDT [facility] Lactate, Arterial 0.8 0.5 - 1.6 mmol/L 06/14/2025 8:15 AM EDT [facility] Body Temperature 37.0 Celsius 06/14/2025 8:15 AM EDT [facility] pH, Temp Corrected, Arterial 7.38 7.31 - 7.42 06/14/2025 8:15 AM EDT [facility] pCO2, Temp Corrected, Arterial 40 32 - 45 mm Hg 06/14/2025 8:15 AM EDT [facility] pO2, Temp Corrected, Arterial 91 >80 mm Hg 06/14/2025 8:15 AM EDT [facility] Dovetail Machine Operator ID Lb Coreas 06/14/2025 8:15 AM EDT [facility] Blood Whole blood specimen / Unknown 06/14/2025 8:13 AM EDT 06/14/2025 8:15 AM EDT us Phillip Clark MD LAB POINT OF CARE TE ST DOCKED DEVICE UNSOLICITED RESULTS Final Result Performing Organization Address City/State/[facility] de Phone Number [facility] [address] [place], [place] [id number] * Type and Screen (06/14/2025 6:27 AM [...] ORDERABL ES Final Result Performing Organization Address City/[facility]/ZIP Co de Phone Number [facility] [address] [place] [address], [place] * POCT glucose meter (06/14/2025 6:23 AM [...] Comment 06/14/2025 6:24 AM EDT [facility] Dovetail Machine Operator ID Kassi Sinha 06/14/2025 6:24 AM EDT [facility] Device ID [id number] 06/14/2025 6:24 AM EDT [facility] Specimen Type POC Venous 06/14/2025 6:24 AM EDT [facility] Blood Venous blood specimen / Unknown 06/14/2025 6:23 AM EDT 06/14/2025 6:24 AM EDT us Phillip Clark MD LAB POINT OF CARE TE ST DOCKED DEVICE UNSOLICITED RESULTS Final Result Performing Organization Address City/[facility] Co de Phone Number [facility] [address] [place] [phone] documented in this encounter Visit Diagnoses Diagnosis Aortic valve regurgitation- Primary Aortic valve disorders Severe aortic regurgitation Other secondary hypertension S/P AVR Severe aortic regurgitation BMI 30.0-30.9,adult High cholesterol Pure hypercholesterolemia Diabetes Type II or unspecified type diabetes mellitus without mention of complication, not stated as uncontrolled Hypertension Unspecified essential hypertension CAD (coronary artery disease) Coronary atherosclerosis of unspecified type of vessel, [place] or graft History of coronary angioplasty with [...] Given 06/18/2025 8:21 AM EDT 10 mg Paollo powder 1 packet 1 packet, Oral, 2 [...] Brittaney Dumas RN)2002 (Given - Provider: Lori Molina, RN)2359 (Not Given - Provider: Lori Molina RN - Reason: Patient/family refused) 0300 (Given - Provider: Lori Molina RN)0847 (Given - Provider: Vicente Hussein RN)1202 (Given - Provider: Vicente Hussein RN)1513 (Given - Provider: Vicente Hussein RN)2017 (Given - Provider: Any Garcia RN) 0026 [...] RN)2003 (Given - Provider: Lori Molina RN) 846 (Given - Provider: Vicente Hussein RN)2017 (Not Given - Provider: Any Garcia RN - Reason: Patient/family refused) 08 (Not Given - Provider: Agustina Mello RN - Reason: Patient/family refused) empagliflozin (Jardiance) tablet 10 mg 10 mg, Oral, Daily, First dose on Beatris 06/16/25 at 1015, Until Discontinued, Routine 0822 (Given - Provider: Brittaney Dumas RN) 08 (Given - Provider: Vicente Hussein, HESHAM) 0854 [...] 0821 (Given - Provider: Brittaney Dumas RN) 08 (Given - Provider: Vicente Hussein RN) 0855 [...] Hussein RN)1513 (Given - Provider: Vicente Hussein, HESHAM)2016 (Given [...] add comment - Comment: dose given by maintenance supervisor 2nd shift rn @ 0627 Joseph instructed real estate underwriter to hold 0900 dose)2003 (Given - [...] Vicente Hussein, HESHAM) 0854 (Given - Provider: gAustina Mello, HESHAM) phosphorus (K Phos Neutral) tablet [...] Provider: Brittaney Dumas, HESHAM)2004 (Given - Provider: Loir Molina RN) 0837 (Given - Provider: Vicente Hussein, HESHAM)1957 (Given - Provider: Any Garcia RN) 0855 (Given - Provider: Agustina Mello, HESHAM) warfarin (Coumadin) tablet 4 mg 4 mg, Oral, Daily, First dose (after last modification) on 06/18/25 at 1700, Until Discontinued, Routine 1758 (Given - Provider: Brittaney Dumas, RN) 1655 (Given - Provider: Vicente Hussein [...] Until 06/20/25 at 1627, Routine, moderate pain 0140 (See Alternative - Provider: Lori Molina RN)0829 (See Alternative - Provider: Brittaney Dumas RN)2003 (See Alternative - Provider: Lori Molina RN) 430 (See Alternative - Provider: Lori Molina RN)1001 [...] documented as of this encounter Care Teams Quarry Supervisor Relationship Specialty Start Date End Date Kamran Singh MD [address] [place] [address] PCP - General 02/28/25 documented as of this encounter
--- OUTSIDE RECORDS SUMMARY | 2025-06-14 07:45 | XMS_ITS | Encounter Summary ---
Author Organization [facility] Address [address] [place] [id number] Care Team Providers Care Portable Track Crew Chief Name Role Phone Kamran Singh MD Primary Care Provider +1- [phone] Reason for Visit * Auth/Cert (Routine) Specialty Diagnoses / Procedures Referred By Nathalia t Referred To Contact Diagnoses Severe aortic regurgitation Severe aortic regurgitation [I35.1] Procedures NE -AORT GRF W/CARD BYP F/AORTIC DISSECTION AORTIC ROOT RECONSTRUCTION Phillip Clark MD [address] [facility] [address] [address] [place] [address] Phone: tel: fax: [facility] [address] [place] [address] Phone: tel: Referral ID Status Reason Start Date Expiration Date Visits Re quested Visits Authorized [id number] 1 1 Encounter Details Date Type Department Care Team (Late st Contact Info) Description 06/14/2025 7:45 AM EDT Anesthesia Event [facility] [address] [place] [address] Jean Claude Staley MD [address] [place] [address] Ricki Zamarripa DO [address] [place] [address] Anesthesia Record Procedure Summary Procedure Name Responsible [...] any time in the past 12 m [facility], were you homeless or living in a longterm (including now)? No 06/15/2025 [facility] Utilities Answer Date Recorded In the past 12 months has th e [employer], gas, oil, or water company threatened to [...] filed (Perfusion) * Anesthesia Postprocedure Evaluation - iRcki Zamarripa DO - 06/14/2025 2:40 PM EDT [...] supine Prep: ChloraPrep Patient monitoring: heart rate, air value tester and continuous pulse ox Anesthesia block type: [...] portions of the procedure(s) and immediately available [facility] services the entire duration. See resident note [...] mcg/kg/min) RV: same as baseline Aortic valve: tling[place] & [place] valve replaced by mechanical valve. New valve [...] portions of the procedure(s) and immediately available [facility] services the entire duration. See resident note [...] 05/05/25 88.7 kg (195 lb 8.8 oz) [place] Body Weight: [place] body weight: 66.1 kg (145 lb 11.6 [...] fibrillation, CHF, dysrhythmias, hyperlipidemia, pacemaker or past VT. hypertension: Exercise tolerance is 1 flight of [...] Description 07/07/2025 2:40 PM EST Office Visit [facility] [address], [address] [place] [address] Phillip Clark MD [address] [place] [address] documented as of this encounter Procedures Procedure Name Priority Date/Time Associated Diagnosis Comments PB POINT OF CARE IMAGING PLACEHOLDER Routine 06/14/2025 2:16 PM EDT PB ANESTHESIA NON-TIMED PROCEDURE PLACEHOLDER Routine 06/14/2025 2:15 PM EDT PB POINT OF CARE IMAGING PLACEHOLDER Routine 06/14/2025 8:32 AM EDT NE INSERT/PLACE FLOW DIRECT CATH Routine 06/14/2025 8:32 AM EDT ANESTHESIA ULTRASOUND GUIDED Routine 06/14/2025 8:32 AM EDT PB ANESTHESIA NON-TIMED PROCEDURE PLACEHOLDER Routine 06/14/2025 8:32 AM EDT NE AN CENTRAL LINE DOUBLE LUMEN Routine 06/14/2025 8:32 AM EDT PB ANESTHESIA PLACEHOLDER Routine 06/14/2025 8:16 AM EDT NE AN ELECTIVE ENDOTRACHEAL AIRWAY Routine 06/14/2025 8:16 AM EDT ANESTHESIA ARTERIAL LINE PLACEMENT Routine 06/14/2025 8:08 AM EDT documented in [...] supine Prep: ChloraPrep Patient monitoring: heart rate, air value tester and continuous pulse ox Anesthesia block type: [...] mcg/kg/min) RV: same as baseline Aortic valve: tling[place] & haida valve replaced by mechanical valve. New valve is well seated with appropriate movement of valve leaflets. No perivalvular leak. Mean PG of 2mm Hg and AT 55 msec. Aorta: intact after decannulation. Findings were communicated with surgeon. us Jean Claude Staley MD ANESTHESIA ORDERABLES Edited Res ult - Final * NE AN CENTRAL LINE DOUBLE LUMEN, PB ANESTHESIA NON-TIMED PROCEDURE PLACEHOLDER, ANESTHESIA ULTRASOUND GUIDED, NE INSERT/PLACE FLOW DIRECT CATH, PB POINT OF [...] MD ANESTHESIA ORDERABLES Final Resu lt * NE AN ELECTIVE ENDOTRACHEAL AIRWAY, PB ANESTHESIA PLACEHOLDER (06/14/2025 8:16 AM EDT) Narrative Jean Claude Staley MD - 06/14/2025 8:16 AM EDT Jean [...] NON-TIMED PROCEDURE PLACEHOLDER (06/14/2025 8:08 AM EDT) Narrative Jean Claude Staley MD - 06/14/2025 8:08 AM EDT Jean [...] MD Other anesthesia staff: Ricki Zamarripa DO us Jean Claude Staley MD ANESTHESIA ORDERABLES [...] 06/14/2025 1:34 PM EDT 7 mg/hr 14 mL/ hr dexmedetomidine in NS (Precedex) 4 mcg/mL infusion [...] (Cyklokapron) injection Intravenous, As needed, Starting on e 06/14/25 at 0925, Until 06/14/25 at 1440, Routine, [...] documented as of this encounter Care Teams Portable Track Crew Chief Relationship Specialty Start Date End Date Kamran Singh MD [address] [place] [address] PCP - General 02/28/25 documented as of this encounter
--- OUTSIDE RECORDS SUMMARY | 2025-06-22 12:28 | XMS_ITS | Encounter Summary ---
Author Organization [facility] Address [address] [place] [address] Care Team Providers Care Carpenter'S Helper Name Role Phone Kamran Singh MD Primary Care Provider +1- [phone] Encounter Details Date Type Department Care Team (Latest Contact Info) Description 05/05/2025 Travel Social History Tobacco Use Types Packs/Day [...] Clinic Cardioth[facility] [address], [address] [place] [address] Phillip Clark MD [address] [place] [address] documented as of this encounter Visit Diagnoses Not on filedocumented in this encounter Additional Health Concerns Assessment Noted Time A fall risk assessment has been complete d for the patient 05/05/2025 9:58 AM EDT A Body Mass Index follow-up plan has been documented for the patient 05/05/2025 10:51 AM EDT documented as of this encounter Care Teams Carpenter'S Helper Relationship Specialty Start Date End Date Kamran Singh MD [address] [place] [address] PCP - General 02/28/25 documented as of this encounter
--- OUTSIDE RECORDS SUMMARY | 2025-06-22 12:28 | XMS_ITS | Encounter Summary ---
Author Organization [facility] Address [address] [place] [address] Care Team Providers Care Boilermaker Name Role Phone Kamran Singh MD Primary Care Provider +1- [phone] Encounter Details Date Type Department Care Team (Late st Contact Info) Description 01/28/2025 Orders Only External Location [address] [place] [address] Provider, External Social History Tobacco Use Types [...] Office Visit [place] [facility] [address], [address] [place] [address] Phillip Clark MD [address] [place] [address] documented as of this encounter Procedures Procedure [...] on filedocumented in this encounter Care Teams Boilermaker Relationship Specialty Start Date End Date Kamran Singh MD [address] [facility] [place] [address] PCP - General 02/28/25 documented as of this encounter
--- OUTSIDE RECORDS SUMMARY | 2025-06-22 12:28 | XMS_ITS | Encounter Summary ---
Author Organization [facility] Address [address] [place] [address] Care Team Providers Care Supervisor Engines Road Name Role Phone Kamran Singh MD Primary Care Provider +1- [phone] Encounter Details Date Type Department Care Team (Late Contact Info) Description 01/04/2025 Orders Only External Location [address] [place] [address] Provider, External Social History Tobacco Use Types [...] Description 07/07/2025 2:40 PM EST Office Visit [place] [facility] [address], [address] [place] [address] Phillip Clark MD [address] [place] [address] documented as of this encounter Procedures Procedure [...] on filedocumented in this encounter Care Teams Supervisor [address] Relationship Specialty Start Date End Date Kamran Singh MD [address] [facility] [place] [address] PCP - General 02/28/25 documented as of this encounter
--- OUTSIDE RECORDS SUMMARY | 2025-06-22 12:29 | XMS_ITS | Encounter Summary ---
Author Organization [facility] Address [address] [place] [address] Care Team Providers Care Supervisor Tower Name Role Phone Kamran Singh MD Primary Care Provider +1- [phone] Encounter Details Date Type Department Care Team (Latest Contact Info) Description 06/02/2025 Travel Social History Tobacco Use Types Packs/Day [...] Clinic Cardiothor[facility] [address], [address] [place] [address] Phillip Clark MD [address] [place] [address] documented as of this encounter Visit Diagnoses Not on filedocumented in this encounter Additional Health Concerns Assessment Noted Time A fall risk assessment has been complete d for the patient 05/05/2025 9:58 AM EDT A Body Mass Index follow-up plan has been documented for the patient 05/05/2025 10:51 AM EDT documented as of this encounter Care Teams Supervisor Tower Relationship Specialty Start Date End Date Kamran Singh MD [address] [place] [address] PCP - General 02/28/25 documented as of this encounter
--- OUTSIDE RECORDS SUMMARY | 2025-06-22 12:29 | XMS_ITS | Encounter Summary ---
Author Organization [facility] Address [address] [place] [address] Care Team Providers Care Plumber Pipe Fitting Name Role Phone Kamran Singh MD Primary Care Provider +1- [phone] Encounter Details Date Type Department Care Team [...] Clinic Cardiothor[facility] [address], [address] [place] [address] Phillip Clark MD [address] [place] [address] documented as of this encounter Visit Diagnoses Not on filedocumented in this encounter Additional Health Concerns Assessment Noted Time A fall risk assessment has been complete d for the patient 04/14/2025 12:34 PM EDT A Body Mass Index follow-up plan has been documented for the patient 04/14/2025 2:26 PM EDT documented as of this encounter Care Teams Plumber Pipe Fitting Relationship Specialty Start Date End Date Kamran Singh MD [address] [place] [address] PCP - General 02/28/25 documented as of this encounter
--- OUTSIDE RECORDS SUMMARY | 2025-06-22 12:29 | XMS_ITS | Encounter Summary ---
Author Organization [facility] Address [address] [place] [address] Care Team Providers Care Roll Reclaimer Name Role Phone Kamran Singh MD Primary Care Provider +1- [phone] Encounter Details Date Type Department Care Team (Latest Contact Info) Description 06/09/2025 Travel Social History Tobacco Use Types Packs/Day [...] Description 07/07/2025 2:40 PM EST Office Visit [place] [facility] [address], [address] [place] [address] Phillip Clark MD [address] [place] [address] documented as of this encounter Visit Diagnoses Not on filedocumented in this encounter Additional Health Concerns Assessment Noted Time A fall risk assessment has been complete d for the patient 06/09/2025 12:15 PM EDT A Body Mass Index follow-up plan has been documented for the patient 06/09/2025 2:00 PM EDT documented as of this encounter Care Teams Roll Reclaimer Relationship Specialty Start Date End Date Kamran Singh MD [address] [place] [address] PCP - General 02/28/25 documented as of this encounter
--- OUTSIDE RECORDS SUMMARY | 2025-06-22 12:29 | XMS_ITS | Encounter Summary ---
Author Organization [facility] Address [address] [place] [id number] Care Team Providers Care Outside B2B Sales Name Role Phone Kamran Singh MD Primary Care Provider +1- [phone] Encounter Details Date Type Department Care Team (Latest Contact Info) Description 06/18/2025 Travel Social History Tobacco Use Types Packs/Day [...] any time in the past 12 m [facility], were you homeless or living in a fci (including now)? No 06/15/2025 [facility] Utilities Answer Date Recorded In the [...] as of this encounter Functional Status * Calculated C-SSRS Risk Score (Lifetime/Recent) Answer Date of Assessment Author No Risk Indicated 06/18/2025 8:00 PM EDT Lori Molina RN * Question Answer Date of Assessment Author 1. Wish to be (Past 1 Month) No 025 8:00 PM EDT Lori Molina RN 2. Non-Specific Active Suici richie Thoughts (Past 1 Month) No 06/18/2025 8:00 PM EDT Eloina Molina RN 6. Suicidal Behavior (Lifetime) No 8:00 PM ELLIT Lori Molina RN documented as of this encounter Plan of Treatment Upcoming Encounters Date Type Department Care Team (Late st Contact Info) Description 07/07/2025 2:40 PM EST Office Visit [place] [facility] [address], [address] [place] [address] Phillip Clark MD [address] [place] [address] documented as of this encounter Visit Diagnoses Not on filedocumented in this encounter Additional Health Concerns Assessment Noted Time A fall risk assessment has been complete d for the patient 06/09/2025 12:15 PM EDT A Body Mass Index follow-up plan has been documented for the patient 06/20/2025 10:30 AM EDT documented as of this encounter Care Teams Outside B2B Sales Relationship Specialty Start Date End Date Kamran Singh MD [address] [place] [address] PCP - General 02/28/25 documented as of this encounter
--- OUTSIDE RECORDS SUMMARY | 2025-06-22 12:29 | XMS_ITS | Encounter Summary ---
Author Organization [facility] Address [address] [place] [address] Care Team Providers Care Lens Silverer Name Role Phone Kamran Singh MD Primary Care Provider +1- [phone] Encounter Details Date Type Department Care Team (Latest Contact Info) Description 06/07/2025 Travel Social History Tobacco Use Types Packs/Day [...] Description 07/07/2025 2:40 PM EST Office Visit [place] [facility] [address], [address] [place] [address] Phillip Clark MD [address] [place] [address] documented as of this encounter Visit Diagnoses Not on filedocumented in this encounter Additional Health Concerns Assessment Noted Time A fall risk assessment has been complete d for the patient 05/05/2025 9:58 AM EDT A Body Mass Index follow-up plan has been documented for the patient 05/05/2025 10:51 AM EDT documented as of this encounter Care Teams Lens Silverer Relationship Specialty Start Date End Date Kamran Singh MD [address] [place] [address] PCP - General 02/28/25 documented as of this encounter
--- OUTSIDE RECORDS SUMMARY | 2025-06-22 12:29 | XMS_ITS | Encounter Summary ---
Author Organization Address [address] [place] [id number] Care Team Providers Care Housecleaner Name Role Phone Kamran Singh MD Primary Care Provider +1- [phone] Encounter Details Date Type Department Care Team (Latest Contact Info) Description 06/17/2025 Travel Social History Tobacco Use Types Packs/Day [...] time in the past 12 m [facility], were you homeless or living in a [facility] (including now)? No 06/15/2025 [facility] Utilities Answer Date Recorded In [...] Date of Assessment Author No Risk Indicated 06/17/2025 8:00 PM EDT Lori Molina RN * Question Answer Date of Assessment Author 1. Wish to be (Past 1 Month) No 025 8:00 PM EDT Lori Molina RN 2. Non-Specific Active Suici richie Thoughts (Past 1 Month) No 06/17/2025 8:00 PM EDT Eloina Molina RN 6. Suicidal Behavior (Lifetime) No 8:00 PM ELLIT Lori Molina RN documented as of this encounter Plan of Treatment Upcoming Encounters Date Type Department Care Team (Late st Contact Info) Description 07/07/2025 2:40 PM EST Office Visit [place] [facility] [address], [address] [place] [address] Phillip Clark MD [address] [place] [address] documented as of this encounter Visit Diagnoses Not on filedocumented in this encounter Additional Health Concerns Assessment Noted Time A fall risk assessment has been complete d for the patient 06/09/2025 12:15 PM EDT A Body Mass Index follow-up plan has been documented for the patient 06/20/2025 10:30 AM EDT documented as of this encounter Care Teams Housecleaner Relationship Specialty Start Date End Date Kamran Singh MD [address] [place] [address] PCP - General 02/28/25 documented as of this encounter
--- OUTSIDE RECORDS SUMMARY | 2025-06-22 12:30 | XMS_ITS | Encounter Summary ---
Author Organization [facility] Address [address] [place] [id number] Care Team Providers Care Stucco Laborer Name Role Phone Kamran Singh MD Primary Care Provider +1- [phone] Encounter Details Date Type Department Care Team (Latest Contact Info) Description 06/20/2025 Travel Social History Tobacco Use Types Packs/Day [...] any time in the past 12 m ont, were you homeless or living in a senior living (including now)? No 06/15/2025 [facility] Utilities Answer Date Recorded In the past [...] [facility] [address], [address] [place] [address] Phillip Clark MD [address] [place] [address] documented as of this encounter Visit Diagnoses Not on filedocumented in this encounter Additional Health Concerns Assessment Noted Time A fall risk assessment has been complete d for the patient 06/09/2025 12:15 PM EDT A Body Mass Index follow-up plan has been documented for the patient 06/20/2025 10:30 AM EDT documented as of this encounter Care Teams Stucco Laborer Relationship Specialty Start Date End Date Kamran Singh MD [address] [facility] [place] [address] PCP - General 02/28/25 documented as of this encounter
--- OUTSIDE RECORDS SUMMARY | 2025-06-22 12:30 | XMS_ITS | Encounter Summary ---
Author Organization [facility] Address [address] [place] [id number] Care Team Providers Care Brand Mgr Name Role Phone Kamran Singh MD Primary Care Provider +1- [phone] Encounter Details Date Type Department Care Team (Latest Contact Info) Description 06/16/2025 Travel Social History Tobacco Use Types Packs/Day [...] any time in the past 12 m [facility], were you homeless or living in a detention (including now)? No 06/15/[address] [facility] Utilities Answer Date Recorded In [...] Date of Assessment Author No Risk Indicated 06/16/2025 8:00 PM EDT Lori Molina RN * Question Answer Date of Assessment Author 1. Wish to be (Past 1 Month) No 025 8:00 PM EDT Lori Molina RN 2. Non-Specific Active Suici richie Thoughts (Past 1 Month) No 06/16/2025 8:00 PM EDT Elonia Molina RN 6. Suicidal Behavior (Lifetime) No 8:00 PM ELLIT Lori Molina RN documented as of this encounter Plan of Treatment Upcoming Encounters Date Type Department Care Team (Late st Contact Info) Description 07/07/2025 2:40 PM EST Office Visit [place] [facility] [address], [address] [place] [id number] Phillip Clark MD [address] [place] [address] documented as of this encounter Visit Diagnoses Not on filedocumented in this encounter Additional Health Concerns Assessment Noted Time A fall risk assessment has been complete d for the patient 06/09/2025 12:15 PM EDT A Body Mass Index follow-up plan has been documented for the patient 06/20/2025 10:30 AM EDT documented as of this encounter Care Teams Brand Mgr Relationship Specialty Start Date End Date Kamran Singh MD [address] [place] [address] PCP - General 02/28/25 documented as of this encounter
--- OUTSIDE RECORDS SUMMARY | 2025-06-22 12:31 | XMS_ITS | Encounter Summary ---
Author Organization [facility] Address [address] [place] [id number] Care Team Providers Care Jig Bore Tool Maker Name Role Phone Kamran Singh MD Primary Care Provider +1- [phone] Encounter Details Date Type Department Care Team (Latest Contact Info) Description 06/14/2025 Travel Social History Tobacco Use Types Packs/Day [...] in a long-term (including now)? No 06/15/2025 [facility] Utilities Answer Date Recorded In [...] Clinic Cardiothoracic [address], [address] [place] [address] Phillip Clark MD [address] [place] [address] documented as of this encounter Visit Diagnoses Not on filedocumented in this encounter Additional Health Concerns Assessment Noted Time A fall risk assessment has been complete d for the patient 06/09/2025 12:15 PM EDT A Body Mass Index follow-up plan has been documented for the patient 06/20/2025 10:30 AM EDT documented as of this encounter Care Teams Jig Bore Tool Maker Relationship Specialty Start Date End Date Kamran Singh MD [address] [facility] [place] [address] PCP - General 02/28/25 documented as of this encounter
--- OUTSIDE RECORDS SUMMARY | 2025-06-22 12:31 | XMS_ITS | Encounter Summary ---
Author Organization [facility] Address [address] [place] [id number] Care Team Providers Care Riveter Helper Name Role Phone Kamran Singh MD Primary Care Provider +1- [phone] Encounter Details Date Type Department Care Team (Latest Contact Info) Description 06/19/2025 Travel Social History Tobacco Use Types Packs/Day [...] any time in the past 12 m [facility], were you homeless or living in a penitentiary (including now)? No 06/15/2025 [facility] Utilities Answer Date Recorded In the past [...] Garcia RN documented as of this encounter Plan of Treatment Upcoming Encounters Date Type Department Care Team (Late st Contact Info) Description 07/07/2025 2:40 PM EST Office Visit [place] [facility] [address], [address] [place] [address] Phillip Clark MD [address] [place] [address] documented as of this encounter Visit Diagnoses Not on filedocumented in this encounter Additional Health Concerns Assessment Noted Time A fall risk assessment has been complete d for the patient 06/09/2025 12:15 PM EDT A Body Mass Index follow-up plan has been documented for the patient 06/20/2025 10:30 AM EDT documented as of this encounter Care Teams Riveter Helper Relationship Specialty Start Date End Date Kamran Singh MD [address] [place] [address] PCP - General 02/28/25 documented as of this encounter
--- OUTSIDE RECORDS SUMMARY | 2025-06-22 12:31 | XMS_ITS | Encounter Summary ---
Author Organization [facility] Address [address] [place] [id number] Care Team Providers Care Supervisor Sewing Room Name Role Phone Kamran Singh MD Primary Care Provider +1- [phone] Encounter Details Date Type Department Care Team (Latest Contact Info) Description 06/15/2025 Travel Social History Tobacco Use Types Packs/Day [...] in a [facility] (including now)? No 06/15/2025 [facility] Utilities Answer Date Recorded [...] Clinic Cardioth[facility] [address], [address] [place] [address] Phillip Clark MD [address] [place] [address] documented as of this encounter Visit Diagnoses Not on filedocumented in this encounter Additional Health Concerns Assessment Noted Time A fall risk assessment has been complete d for the patient 06/09/2025 12:15 PM EDT A Body Mass Index follow-up plan has been documented for the patient 06/20/2025 10:30 AM EDT documented as of this encounter Care Teams Supervisor Sewing Room Relationship Specialty Start Date End Date Kamran Singh MD [address] [facility] [place] [address] PCP - General 02/28/25 documented as of this encounter
--- OUTSIDE RECORDS SUMMARY | 2025-06-22 12:33 | XMS_ITS | Clinical Summary ---
Author Organization [facility] Address [address] [place] [id number] Care Team Providers Care Bleach Packer Name Role Phone Kamran Singh MD Primary Care Provider [phone] Allergies Active Allergy Reactions Criticality Noted Date Comments Lisinopril Cough Low 03/30/2025 Seafood Hives Medium 03/10/2025 Medications Repatha SureClick 140 MG/ML solution auto-injector autoinjector Inject 1 mL under the skin every 14 days. Active omeprazole (PriLOSEC) [address] capsule Take 1 capsule by mouth daily as needed. Do not crush or chew. Active acetaminophen (Tylenol) 325 MG tablet Take 2 tablets by mouth every 4 hours as needed for pain, headaches or fever. 100 tablet Active clopidogrel (Plavix) 75 MG tablet Take 1 tablet by mouth daily. 30 tablet 2024 Active empagliflozin (Jardiance) 10 MG Take 1 tablet by mouth daily. 30 tablet 2 2025 Active ezetimibe (Zetia) 10 MG tablet Take 1 tablet by mouth daily. 30 tablet 2 2025 Active losartan (Cozaar) 50 MG tablet Take 0.5 tablets by mouth 2 times a day. 60 tablet 2 2025 Active rosuvastatin (Crestor) 40 MG tablet Take 1 tablet by mouth daily. 30 tablet 2 2025 Active docusate sodium (Colace) 100 MG capsule Take 1 capsule by mouth 2 times a day for 10 days. Hold for loose stool 20 capsule 2024 Active methocarbamol (Robaxin) 500 MG tablet Take 1 tablet by mouth 4 times a day as needed for muscle spasms. 40 tablet Active metoprolol tartrate (Lopressor) 50 MG tablet Take 1 tablet by mouth 2 times a day. 60 tablet 2 2025 Active oxyCODONE (Roxicodone) 5 MG immediate release tablet Take 1 tablet by mouth every 4 hours as needed for moderate pain. 18 tablet Active naloxone (Narcan) 4 mg/0.1 mL nasal spray 1. Give 1 spray in nostril for no/slow breathing or cannot wake after opioid use 2. Call 911 3. Repeat in other nostril if symptoms continue 1 each Active senna (Senokot) 8.6 MG tablet Take 2 tablets by mouth nightly for 10 days. Hold for loose stools 20 tablet 2024 Active warfarin (Coumadin) 2 MG tablet Take 2 tablets by mouth daily. 4mg daily until you get your INR drawn on Jun 22, then as directed. 60 tablet 11 Active furosemide (Lasix) 40 MG tablet Take 1 tablet by mouth daily. Take Lasix (furosemide) 40mg once daily for 3 days only; to be taken with potassium 20mEq once daily for 3 days only. 3 tablet Active potassium chloride CR (Klor-Con M20) 20 MEQ ER tablet Take 1 tablet by mouth daily for 3 days. Do not crush or chew. Take for 3 days only; to be taken with Lasix (furosemide) 40mg once daily for 3 days only. 3 tablet 2024 Active spironolactone (Aldactone) 25 MG tablet Take 1 tablet by mouth daily. holding Active atenolol (Tenormin) 25 MG tablet Take 1 tablet by mouth daily. 2024 Discontinued(S top Taking at Discharge) ezetimibe (Zetia) 10 MG tablet Take 1 tablet by mouth daily. 2024 Discontinued rosuvastatin (Crestor) 40 MG tablet Take 1 tablet by mouth daily. 2024 Discontinued losartan (Cozaar) 50 MG tablet Take 0.5 tablets by mouth 2 times a day. 2024 Discontinued acetaminophen (Tylenol) 325 MG tablet Take 2 tablets by mouth every morning. Under [place] law, monthly prescriptions (30 days) can be refilled at 25 days and three-month prescriptions (90 days) at 80 days. Please contact the insurance company with questions if refills are denied. 2024 Discontinued(S top Taking at Discharge) ibuprofen 200 MG tablet Take 1 tablet by mouth daily. 2024 Discontinued(S top Taking at Discharge) empagliflozin (Jardiance) 10 MG Take 1 tablet by mouth daily. 2024 Discontinued spironolactone (Aldactone) 25 MG tablet Take 1 tablet by mouth daily. 2024 Discontinued clopidogrel (Plavix) 75 MG tablet Take 1 tablet by mouth daily. 025 2024 Discontinued ASPIRIN 81 MG chewable tablet Chew 1 tablet daily. 2024 Discontinued(S top Taking at Discharge) Active Problems Problem Noted Date Diagnosed Date Left ventricular enlargement 06/17/2025 Hypocalcemia 06/17/2025 Acute blood loss anemia 06/17/2025 Hypoalbuminemia 06/17/2025 Pre-diabetes 06/17/2025 Other secondary hypertension 06/15/2025 Assessment & Plan (06/16/2025 1:20 PM EDT): -Monitor per protocol. -SBP<120 in initial post-op period Assessment & Plan (06/15/2025 1:41 PM EDT): -Monitor per protocol. -SBP<120 in initial post-op period -clevidipine Assessment & Plan (06/15/2025 12:23 AM EDT): -Monitor per protocol. -SBP<120 in initial post-op period -clevidipine Benign prostatic hyperplasia 05/05/2025 Assessment & Plan (06/16/2025 1:20 PM EDT): -Monitor per protocol. Assessment & Plan (06/15/2025 1:41 PM EDT): -Monitor per protocol. Assessment & Plan (06/15/2025 12:23 AM EDT): -Monitor per protocol. Assessment & Plan (06/15/2025 1:41 PM EDT): -Monitor per protocol. CAD (coronary artery disease) 04/14/2025 Assessment & Plan (06/16/2025 1:20 PM EDT): -Monitor per protocol. Assessment & Plan (06/15/2025 1:41 PM EDT): -Monitor per protocol. Assessment & Plan (06/15/2025 12:23 AM EDT): -Monitor per protocol. Assessment & Plan (06/15/2025 1:41 PM EDT): -Monitor per protocol. History of coronary angioplasty with insertion o f stent 04/14/2025 Assessment & Plan (06/16/2025 1:20 PM EDT): -Monitor per protocol. - 06/16: start plavix Assessment & Plan (06/15/2025 1:41 PM EDT): -Monitor per protocol. Assessment & Plan (06/15/2025 10:21 AM EDT): -No ASA, plavix when chest tubes come out per CT surg Assessment & Plan (06/15/2025 12:23 AM EDT): -Monitor per protocol. Assessment & Plan (06/15/2025 1:41 PM EDT): -Monitor per protocol. High cholesterol 12/23/2019 Assessment & Plan (06/16/2025 1:20 PM EDT): - 06/15: statin - 06/16: start home ezetimibe -Monitor per protocol. Assessment & Plan (06/15/2025 1:41 PM EDT): - statin today -Monitor per protocol. Assessment & Plan (06/15/2025 12:23 AM EDT): - statin as appropriate -Monitor per protocol. Assessment & Plan (06/15/2025 1:41 PM EDT): - statin as appropriate -Monitor per protocol. Hypertension 12/23/2019 Assessment & Plan (06/16/2025 1:20 PM EDT): -Monitor per protocol. - 40 lasix po today - 06/16: restart home losartan Assessment & Plan (06/15/2025 1:41 PM EDT): -Monitor per protocol. - 40 lasix today - restart home meds as appropriate Assessment & Plan (06/15/2025 12:23 AM EDT): -Monitor per protocol. - restart home meds as appropriate Assessment & Plan (06/15/2025 1:41 PM EDT): -Monitor per protocol. - restart home meds as appropriate Resolved Problems Problem Noted Date Diagnosed Date Resolved Date Thrombocytopenia 06/17/2025 06/20/2025 Leukocytosis 06/17/2025 06/20/2025 Constipation 06/16/2025 06/20/2025 Assessment & Plan (06/16/2025 1:20 PM EDT): - 06/16: KUB consistent with ileus, scheduled Miralax and milk of magnesia, follow up in afternoon to escalate to a suppository if no bowel movement - Monitor per protocol. --The patient needs to remain in the ICU because of: Ileus . --Evaluate for transfer to the floor: following completion of ileus Ileus 06/16/2025 06/20/2025 Cardiac volume overload 06/15/202506/02 Assessment & Plan (06/16/2025 1:20 PM EDT): -Monitor per protocol. -diuresis as appropriate Weaning from mechanically as sisted ventilation initiated 06/14/2025 06/20/2025 Assessment & Plan (06/16/2025 1:20 PM EDT): Arrived intubated and sedated post-op - fast track extubation as able - extubated 06/14, on 2L nasal canula Assessment & Plan (06/15/2025 1:41 PM EDT): Arrived intubated and sedated post-op - fast track extubation as able - extubated 06/14, on 1L nasal canula Assessment & Plan (06/15/2025 10:22 AM EDT): Arrived intubated and sedated post-op - fast track extubation as able - 06/15 extubated Assessment & Plan (06/15/2025 12:23 AM EDT): Arrived intubated and sedated post-op - fast track extubation as able Assessment & Plan (06/15/2025 1:41 PM EDT): Arrived intubated and sedated post-op - fast track extubation as able Ascending aortic aneurysm 04/14/2025 Assessment & Plan (06/16/2025 1:20 PM EDT): -Monitor per protocol. Assessment & Plan (06/15/2025 1:41 PM EDT): -Monitor per protocol. Assessment & Plan (06/15/2025 12:23 AM EDT): -Monitor per protocol. Assessment & Plan (06/15/2025 1:41 PM EDT): -Monitor per protocol. Aortic valve regurgitation 04/14/2025 1 Assessment & Plan (06/17/2025 3:55 PM EDT): >>ASSESSMENT AND PLAN FOR AORTIC VALVE REGURGITATION WRITTEN ON 06/16/2025 1:20 PM BY BELLE SMITH MD - s/manuel AVR 06/14 - Monitor per protocol. >>ASSESSMENT AND PLAN FOR SEVERE AORTIC REGURGITATION WRITTEN ON 06/16/2025 1:20 PM BY BELLE SMITH MD - s/manuel Aortic Valve Replacement 06/14 - asa/statin/BB when able - dvt prophylaxis and warfarin - wean pressors/inotropes as able - monitor CT output - Monitor per protocol. Assessment & Plan (06/17/2025 3:55 PM EDT): >>ASSESSMENT AND PLAN FOR AORTIC VALVE REGURGITATION WRITTEN ON 06/15/2025 1:41 PM BY BELLE SMITH MD - s/manuel AVR 06/14 - Monitor per protocol. >>ASSESSMENT AND PLAN FOR SEVERE AORTIC REGURGITATION WRITTEN ON 06/15/2025 1:41 PM BY BELLE SMITH MD - s/manuel Aortic Valve Replacement 06/14 - asa/statin/BB when able - dvt prophylaxis and warfarin today - wean pressors/inotropes as able - monitor CT output - Monitor per protocol. Assessment & Plan (06/17/2025 3:55 PM EDT): >>ASSESSMENT AND PLAN FOR AORTIC VALVE REGURGITATION WRITTEN ON 06/15/2025 12:23 AM BY ANDRES NARVAEZ MD - s/manuel AVR 06/14 - Monitor per protocol. >>ASSESSMENT AND PLAN FOR SEVERE AORTIC REGURGITATION WRITTEN ON 06/15/2025 12:23 AM BY ANDRES NARVAEZ MD - s/manuel Aortic Valve Replacement 06/14 - asa/statin/BB when able - wean pressors/inotropes as able - monitor CT output - Monitor per protocol. Assessment & Plan (06/17/2025 3:55 PM EDT): >>ASSESSMENT AND PLAN FOR AORTIC VALVE REGURGITATION WRITTEN ON 06/15/2025 1:41 PM BY BELLE SMITH MD - s/manuel AVR 06/14 - Monitor per protocol. >>ASSESSMENT AND PLAN FOR SEVERE AORTIC REGURGITATION WRITTEN ON 06/15/2025 1:41 PM BY BELLE SMITH MD - s/p Aortic Valve Replacement 06/14 - asa/statin/BB when able - wean pressors/inotropes as able - monitor CT output - Monitor per protocol. BMI 30.0-30.9,adult 03/10/2025 06/20/20 25 Assessment & Plan (06/16/2025 1:20 PM EDT): - complicates all aspects of care -Monitor per protocol. Assessment & Plan (06/15/2025 1:41 PM EDT): - complicates all aspects of care -Monitor per protocol. Assessment & Plan (06/15/2025 12:23 AM EDT): - complicates all aspects of care -Monitor per protocol. Assessment & Plan (06/15/2025 1:41 PM EDT): - complicates all aspects of care -Monitor per protocol. Encounters Date Type Department Care Team Description 06/20/2025 Travel 06/19/2025 Travel 06/18/2025 Travel 06/17/2025 Travel 06/16/2025 Travel 06/15/2025 Travel 06/14/2025 7:45 AM EDT - 06/14/2025 8:15 PM EDT Surgery [facility] [address] [place] [address] Phillip Clark MD Aortic valve replacement [94659 (CPT )] 06/14/2025 7:45 AM EDT Anesthesia Event [facility] [address] [place] [address] Jean Claude Staley MD Burns, Jonathon R, DO 06/14/2025 5:18 AM EDT - 06/20/2025 2:25 PM EDT Hospital Encounter [facility] [address] [place] [address] Phillip Clark MD Other secondary hypertension (Primary Dx); Severe aortic regurgitation; S/P AVR Discharge Disposition: Home or Self Care 06/14/2025 Travel 06/09/2025 1:42 PM EDT - 06/09/2025 11:59 PM EDT Hospital Encounter [place] [facility] [address], [address] [place] [address] Severe aortic regurgitation Discharge Disposition: Home or Self Care 06/09/2025 12:20 PM EDT Office Visit [facility] Cardiothoracic [address], [address] [place] [address] Phillip Clark MD Severe aortic regurgitation (Primary Dx) 06/09/2025 Travel 06/07/2025 8:30 AM EDT Pre-Admission Testing [facility] Pre-op Clinic [address], [address] [place] [address] 06/07/2025 Travel 06/02/2025 Travel 05/05/2025 10:20 AM EDT Office Visit [facility] Cardiothoracic [address], [address] [place] [address] Phillip Clark MD Severe aortic regurgitation (Primary Dx) 05/05/2025 Travel 04/28/2025 Travel 04/14/2025 1:00 PM EDT Office Visit [facility] Cardiothoracic [address], [address] [place] [address] Phillip Clark MD Ascending aortic aneurysm, unspecified whether ruptured (CMS/HCC) (Primary Dx); Aortic valve insufficiency, etiology of cardiac valve disease unspecified 04/14/2025 7:13 AM EDT - 04/14/2025 11:59 PM EDT Hospital Encounter [facility] [address] [place] [address] Ascending aortic aneurysm, unspecified whether ruptured (CMS/HCC) Discharge Disposition: Home or Self Care 04/14/2025 Travel 04/08/2025 Travel from Last 3 Months Family History Medical History Relation Name Comments Coronary artery disease Father Hypertension Father Skin cancer Maternal Grandmother Diabetes type I Mother Hypertension Other Breast cancer Sister Anesthesia problems Neg Hx Malig Hyperthermia Neg Hx Relation Name Status Comments Father Maternal Grandmother Mother Other Sister Social History Tobacco Use Types Packs/Day Years Used Date Smoking Tobacco: Never Smokeless Tobacco: Never Tobacco Cessation:Counseling Given: Not Answered Alcohol Use Standard Drinks/Week Comments Not Currently [...] any time in the past 12 m [facility], were you homeless or living in a skilled nursing (including now)? No 06/15/2025 [facility] Utilities Answer Date Recorded In the past 12 months has e electric, gas, oil, or water company [...] Mass Index 29.56 06/14/2025 6:20 AM EDT Plan of Treatment Upcoming Encounters Date Type Department Care Team (Late st Contact Info) Description 07/07/2025 2:40 PM EST Office Visit [place] [facility] Cardiothoracic [address], [facility] [address] [place] [address] Phillip Clark MD [address] [facility] [address] [place] [address] Health Maintenance Due Date Last Done Comments [facility]-Hepatitis C Screening 1955 [facility]-Medicare Annual Wellness (AWV) 1955 [facility]-/Child/Adol SDOH Screenings 1955 [facility]-DTaP,Tdap,and Td Vaccines (1 - Tdap) 1974 [facility]-Pneumococcal Vaccine: 50+ Years (1 of 2 - PCV) 1974 CT Colonography 2000 Colonoscopy 2000 FIT-DNA 2000 FIT 2000 FOBT 2000 Sigmoidoscopy 2000 [facility]-Colorectal Cancer Screening 2000 [facility]-Zoster Vaccines (1 of 2) 2005 [facility]-RSV Vaccine: 60+ Years or (1 - Risk 60-74 years 1-dose series) 2015 [id number]-70 Vaccine ( season) 2025 06/22/2022, 01/19/2022, 07/12/2021, Additional history exists [facility]-Influenza Vaccine (#1) 2025 [facility]- SDOH Screenings 12/14/2025 [facility]-Adult SDOH Screenings 12/14/2025 06/15/2025 [facility]-Depression Screening 03/10/2026 03/10/2025 [facility]-Diabetes: Hemoglobin A1C 06/09/2026 06/09/2025 [facility]-Obesity Intervention Completed 025, 05/05/2025, 05/05/2025, Additional history exists HPV Vaccines Aged Out No longer eligi [...] on patient's age to complete this topic Medical Devices Implanted Type Area Rn Clinical Resource Device Identifier Shelf Expiration Date Model / Serial / Lot Graft Ptch 6x6in [id number] [place] - [id number] Implanted:Qty: 1 on 06/14/2025 by Phillip Clark MD at [facility] N/A: Heart [employer]-[id number] / / Valve Atrial 25mm Rotatabl Cuf Std Ptfe - [id number] - [id number] Implanted:Qty: 1 on 06/14/2025 by Phillip Clark MD at [facility] N/A: Heart [id number] 03/28/2030 [id number] / [id number] / [id number] Procedures Procedure Name Priority Date/Time Associated Diagnosis Comments XR CHEST 2 VIEWS Routine 06/20/2025 9:14 AM EDT BASIC METABOLIC PANEL, PLASMA Add-On 06/20/2025 1:52 AM EDT PHOSPHORUS, PLASMA Routine 06/20/2025 1: 52 AM EDT PROTHROMBIN TIME(PT) / INR Routine 06/20/2025 1:52 AM EDT MAGNESIUM, PLASMA Routine 06/20/2025 1:5 2 AM EDT CBC W/O DIFFERENTIAL Routine 06/20/2025 1:52 AM EDT INSERT PERIPHERAL IV Routine 06/20/2025 1:47 AM EDT ECG ADULT Routine 06/19/2025 12:49 PM EDT BASIC METABOLIC PANEL, PLASMA Routine 06/19/2025 2:38 AM EDT PHOSPHORUS, PLASMA Routine 06/19/2025 2: 38 AM EDT PROTHROMBIN TIME(PT) / INR Routine 06/19/2025 2:38 AM EDT MAGNESIUM, PLASMA Routine 06/19/2025 2:3 8 AM EDT CBC W/O DIFFERENTIAL Routine 06/19/2025 2:38 AM EDT XR CHEST 1 VIEW Routine 06/19/2025 1:50 AM EDT XR CHEST 1 VIEW Routine 06/18/2025 3:40 AM EDT BASIC METABOLIC PANEL, PLASMA Routine 06/18/2025 1:43 AM EDT PHOSPHORUS, PLASMA Routine 06/18/2025 1: 43 AM EDT PROTHROMBIN TIME(PT) / INR Routine 06/18/2025 1:43 AM EDT MAGNESIUM, PLASMA Routine 06/18/2025 1:4 3 AM EDT CBC W/O DIFFERENTIAL Routine 06/18/2025 1:43 AM EDT ECG ADULT STAT 06/17/2025 8:05 PM EDT XR CHEST 1 VIEW Routine 06/17/2025 3:14 AM EDT BASIC METABOLIC PANEL, PLASMA Routine 06/17/2025 12:17 AM EDT PHOSPHORUS, PLASMA Routine 06/17/2025 12 :17 AM EDT PROTHROMBIN TIME(PT) / INR Routine 06/17/2025 12:17 AM EDT MAGNESIUM, PLASMA Routine 06/17/2025 12: 17 AM EDT CBC W/O DIFFERENTIAL Routine 06/17/2025 12:17 AM EDT MAGNESIUM, PLASMA Routine 06/16/2025 5:3 5 PM EDT RENAL FUNCTION PANEL, PLASMA Routine 06/16/2025 5:35 PM EDT MD CRITICAL CARE, E/M 30-74 MINUTES Routine 06/16/2025 9:58 AM EDT Other secondary hypertension POCT GLUCOSE METER UNSOLICITED RESULTS Routine 06/16/2025 8:40 AM EDT BASIC METABOLIC PANEL, PLASMA Routine 06/16/2025 5:58 AM EDT XR CHEST 1 VIEW Routine 06/16/2025 5:14 AM EDT XR ABDOMEN 1 VIEW STAT 06/16/2025 1:2 0 AM EDT PHOSPHORUS, PLASMA Routine 06/16/2025 12 :36 AM EDT PROTHROMBIN TIME(PT) / INR Routine 06/16/2025 12:36 AM EDT MAGNESIUM, PLASMA Routine 06/16/2025 12: 36 AM EDT CBC W/O DIFFERENTIAL Routine 06/16/2025 12:36 AM EDT BLOOD GAS PANEL, ARTERIAL Routine 06/16/2025 12:36 AM EDT PEP THERAPY Routine 06/16/2025 12:00 AM EDT PEP THERAPY Routine 06/15/2025 8:00 PM EDT POCT GLUCOSE METER UNSOLICITED RESULTS Routine 06/15/2025 8:00 PM EDT POCT GLUCOSE METER UNSOLICITED RESULTS Routine 06/15/2025 5:56 PM EDT MAGNESIUM, PLASMA Add-On 06/15/2025 4:1 1 PM EDT PHOSPHORUS, PLASMA Routine 06/15/2025 4: 11 PM EDT BASIC METABOLIC PANEL, PLASMA Routine 06/15/2025 4:11 PM EDT PEP THERAPY Routine 06/15/2025 4:00 PM EDT POCT GLUCOSE METER UNSOLICITED RESULTS Routine 06/15/2025 12:14 PM EDT PEP THERAPY Routine 06/15/2025 12:00 PM EDT MD CRITICAL CARE, E/M 30-74 MINUTES Routine 06/15/2025 [...] PEP THERAPY Routine 06/15/2025 7:20 AM EDT PROTHROMBIN TIME(PT) / INR Routine 06/15/2025 6:40 AM EDT IONIZED CALCIUM, WHOLE BLOOD Routine 06/15/2025 6:40 AM EDT ECG ADULT Routine 06/15/2025 5:20 AM EDT BLOOD GAS PANEL, ARTERIAL Routine 06/15/2025 3:58 AM EDT XR CHEST 1 VIEW Routine 06/15/2025 2:53 AM EDT MD CRITICAL CARE, ADDL 30 MIN Routine 06/15/2025 12:21 AM EDT Other secondary hypertension MD CRITICAL CARE, ADDL 30 MIN Routine 06/15/2025 12:21 AM EDT Other secondary hypertension WBC DIFFERENTIAL Add-On 06/15/2025 12:2 0 AM EDT PHOSPHORUS, PLASMA Add-On 06/15/2025 12 :20 AM EDT MAGNESIUM, PLASMA Add-On 06/15/2025 12: 20 AM EDT BASIC METABOLIC PANEL, PLASMA Add-On 06/15/2025 12:20 AM EDT CBC W/O DIFFERENTIAL Add-On 06/15/2025 12:20 AM EDT POTASSIUM, PLASMA Timed 06/15/2025 12: 20 AM EDT HEMATOCRIT, BLOOD Timed 06/15/2025 12: 20 AM EDT HEMOGLOBIN Timed 06/15/2025 12:20 AM EDT BLOOD GAS PANEL, ARTERIAL Timed 06/15/2025 12:20 AM EDT BLOOD GAS PANEL, ARTERIAL Timed 06/14/2025 8:04 PM EDT POTASSIUM, PLASMA Routine 06/14/2025 8:0 3 PM EDT MAGNESIUM, PLASMA Routine 06/14/2025 8:0 3 PM EDT CBC W/O DIFFERENTIAL Timed 06/14/2025 8:03 PM EDT BASIC METABOLIC PANEL, PLASMA Timed 06/14/2025 8:03 PM EDT BLOOD GAS PANEL, ARTERIAL Routine 06/14/2025 6:47 PM EDT MD CRITICAL CARE, E/M 30-74 MINUTES Routine 06/14/2025 5:35 PM EDT Other secondary hypertension BLOOD GAS PANEL, ARTERIAL Timed 06/14/2025 3:57 PM EDT EXTUBATION Routine 06/14/2025 3:41 PM EDT BLOOD GAS PANEL WITH OXIMETRY, MIXED VENOUS Routine 06/14/2025 3:00 PM EDT XR ABDOMEN 1 VIEW Routine 06/14/2025 2:5 7 PM EDT XR CHEST 1 VIEW STAT 06/14/2025 2:57 PM EDT VENTILATOR - ADULT Routine 06/14/2025 2: 40 PM EDT BLOOD GAS PANEL, ARTERIAL STAT 06/14/2025 2:37 PM EDT ELI AURIS SURVEILLANCE BY PCR Routine 06/14/2025 2:37 PM EDT MULTI DRUG RESISTANCE TEST Routine 06/14/2025 2:37 PM EDT ECG ADULT STAT 06/14/2025 2:36 PM EDT POTASSIUM, PLASMA Timed 06/14/2025 2:3 6 PM EDT HEMATOCRIT, BLOOD Timed 06/14/2025 2:3 6 PM EDT HEMOGLOBIN Timed 06/14/2025 2:36 PM EDT APTT STAT 06/14/2025 2:36 PM EDT PROTHROMBIN TIME(PT) / INR STAT 06/14/2025 2:36 PM EDT PHOSPHORUS, PLASMA STAT 06/14/2025 2: 36 PM EDT MAGNESIUM, PLASMA STAT 06/14/2025 2:3 6 PM EDT BASIC METABOLIC PANEL, PLASMA STAT 06/14/2025 2:36 PM EDT CBC W/O DIFFERENTIAL STAT 06/14/2025 2:36 PM EDT PEP THERAPY Routine 06/14/2025 2:35 PM EDT PEP THERAPY Routine 06/14/2025 2:35 PM EDT PEP THERAPY Routine 06/14/2025 2:35 PM EDT PB POINT OF CARE IMAGING PLACEHOLDER Routine 06/14/2025 2:16 PM EDT PB ANESTHESIA NON-TIMED PROCEDURE PLACEHOLDER Routine 06/14/2025 2:15 PM EDT POCT ARTERIAL BLOOD GAS GEM [...] UNSOLICITED RESULTS Routine 06/14/2025 10:04 AM EDT PB POINT OF CARE IMAGING PLACEHOLDER Routine 06/14/2025 8:32 AM EDT MD INSERT/PLACE FLOW DIRECT CATH Routine 06/14/2025 8:32 AM EDT ANESTHESIA ULTRASOUND GUIDED Routine 06/14/2025 8:32 AM EDT PB ANESTHESIA NON-TIMED PROCEDURE PLACEHOLDER Routine 06/14/2025 8:32 AM EDT MD AN CENTRAL LINE DOUBLE LUMEN Routine 06/14/2025 8:32 AM EDT PB ANESTHESIA PLACEHOLDER Routine 06/14/2025 8:16 AM EDT MD AN ELECTIVE ENDOTRACHEAL AIRWAY Routine 06/14/2025 8:16 AM EDT POCT ACT UNSOLICITED RESULTS Routine 06/14/2025 8:13 AM EDT POCT ARTERIAL BLOOD GAS GEM UNSOLICITED RESULTS Routine 06/14/2025 8:13 AM EDT ANESTHESIA ARTERIAL LINE PLACEMENT Routine 06/14/2025 8:08 AM EDT MD -AORT GRF W/CARD BYP F/AORTIC DISSECTION 06/14/2025 7:28 AM EDT Severe aortic regurgitation Coronary artery disease due to calcified coronary lesion History of coronary angioplasty with insertion of stent Left ventricular enlargement TYPE AND SCREEN Routine 06/14/2025 6:27 AM EDT POCT GLUCOSE METER UNSOLICITED RESULTS Routine 06/14/2025 6:23 AM EDT PREPARE RBC Routine 06/14/2025 6:12 AM EDT XR CHEST 2 VIEWS Routine 06/09/2025 1:53 PM EDT Severe aortic regurgitation APTT Routine 06/09/2025 1:39 PM EDT Severe aortic regurgitation PROTHROMBIN TIME(PT) / INR Routine 06/09/2025 1:39 PM EDT Severe aortic regurgitation HEMOGLOBIN A1C Routine 06/09/2025 1:39 PM EDT Severe aortic regurgitation COMPREHENSIVE METABOLIC PANEL, PLASMA Routine 06/09/2025 1:39 PM EDT Severe aortic regurgitation CBC W/O DIFFERENTIAL Routine 06/09/2025 1:39 PM EDT Severe aortic regurgitation TYPE AND SCREEN 30 DAYS Routine 06/09/2025 1:39 PM EDT Severe aortic regurgitation CT CHEST WO IV CONTRAST Routine 04/14/2025 7:46 AM EDT Ascending aortic aneurysm, unspecified whether ruptured (CMS/HCC) from Last 3 Months Results * XR Chest 2 Views (06/20/2025 9:14 AM EDT) Only the most recent of2 resultswithin the time period is included. Anatomical Region Laterality Modality Chest Computed Radiogr [...] XR PROCEDURES Final Resu lt * (ABNORMAL) Protime-INR (06/20/2025 1:52 AM EDT) Only the most recent of8 resultswithin the time period is included. Prothrombin Time 30.4(H) 12.0 - 14.3 sec LAB COAGULATION METHOD 06/20/2025 2:29 AM EDT [facility] INR 2.9(H) 0.9 - 1.1 LAB COAGULATION METHOD 06/20/2025 2:29 AM EDT [facility] Blood Venous blood specimen / Unknown Venipuncture / Unknown 06/20/2025 1:52 AM EDT 06/20/2025 1:59 AM EDT Narrative [facility] - 06/20/2025 2:29 AM [...] R esult [facility] [address] [place] [address] * (ABNORMAL) CBC (06/20/2025 1:52 AM EDT) Only the most recent of9 resultswithin the time period is included. WBC Count 6.95 3.70 - 10.30 10*3/uL LAB HEMATOLOGY METHOD 06/20/2025 2:07 AM EDT [facility] RBC Count 3.73(L) 4.60 - 6.10 10*6/uL LAB HEMATOLOGY METHOD 06/20/2025 2:07 AM EDT [facility] HGB 10.4(L) 13.7 - 17.5 g/dL LAB HEMATOLOGY METHOD 06/20/2025 2:07 AM EDT [facility] HCT 31.9(L) 40.0 - 51.0 % LAB HEMATOLOGY METHOD 06/20/2025 2:07 AM EDT [facility] Platelet Count 187 155 - 369 10*3/uL LAB HEMATOLOGY METHOD 06/20/2025 2:07 AM EDT [facility] MCV 86 79 - 98 fL LAB HEMATOLOGY METHOD 06/20/2025 2:07 AM EDT [facility] MCH 27.9 26.0 - 32.0 pg LAB HEMATOLOGY METHOD 06/20/2025 2:07 AM EDT [facility] MCHC 32.6 30.7 - 35.5 g/dL LAB HEMATOLOGY METHOD 06/20/2025 2:07 AM EDT [facility] RDW 14.8(H) 11.5 - 14.5 % LAB HEMATOLOGY METHOD 06/20/2025 2:07 AM EDT [facility] MPV 10.2 8.8 - 12.5 fL LAB HEMATOLOGY METHOD 06/20/2025 2:07 AM EDT [facility] nRBC 0.0 <=0.0 per 100 WBCs LAB HEMATOLOGY METHOD 06/20/2025 2:07 AM EDT [facility] Blood Venous blood specimen / Unknown Venipuncture / Unknown 06/20/2025 1:52 AM EDT 06/20/2025 1:59 AM EDT us Phillip Clark MD LAB BLOOD ORDERABLES Final R esult Performing Organization Address City/[facility] Co de Phone Number [facility] [address] [place] [address] * Phosphorus (06/20/2025 1:52 AM EDT) Only the most recent of8 resultswithin the time period is included. Phosphorus, Plasma 2.8 2.5 - 4.5 mg/dL 06/20/2025 2:23 AM EDT [facility] Blood Venous blood specimen / Unknown Venipuncture / Unknown 06/20/2025 1:52 AM EDT 06/20/2025 1:59 AM EDT Phillip Clark MD LAB BLOOD ORDERABLES Final R [facility] Performing Organization Address [facility] Co de Phone Number [facility] [address] [place] [address] * Magnesium (06/20/2025 1:52 AM EDT) Only the most recent of10 resultswithin the time period is included. [facility] Magnesium, Plasma 2.2 1.9 - 2.4 mg/dL 06/20/2025 2:23 AM EDT [facility] Blood Venous blood specimen / Unknown Venipuncture / Unknown 06/20/2025 1:52 AM EDT 06/20/2025 1:59 AM EDT Phillip Clark MD LAB BLOOD ORDERABLES Final R esult Performing Organization Address City/[facility] Co de Phone Number [facility] [address] [place] [address] * (ABNORMAL) Basic metabolic panel (06/20/2025 1:52 AM EDT) Only the most recent of9 resultswithin the time period is included. Glucose, Plasma 107(H) 74 - 99 mg/dL 06/20/2025 2:47 AM EDT [facility] BUN, Plasma 22 8 - 23 mg/dL 06/20/2025 2:47 AM EDT [facility] Creatinine, Plasma 0.85 0.70 - 1.20 mg/dL 06/20/2025 2:47 AM EDT [facility] BUN/Creatinine Ratio 26 06/20/2025 2:47 AM EDT [facility] Sodium, Plasma 131(L) 136 - 145 mmol/L 06/20/2025 2:47 AM EDT [facility] Potassium, Plasma 4.0 3.6 - 4.9 mmol/L 06/20/2025 2:47 AM EDT [facility] Chloride, Plasma 102 97 - 107 mmol/L 06/20/2025 2:47 AM EDT [facility] CO2, Plasma 24 22 - 29 mmol/L 06/20/2025 2:47 AM EDT [facility] Anion Gap 5(L) 6 - 16 mmol/L 06/20/2025 2:47 AM EDT [facility] Total Calcium, Plasma 7.9(L) 8.9 - 10.2 mg/dL 06/20/2025 2:47 AM EDT [facility] eGFRcr 94.1 mL/min/1.7 3m*2 06/20/2025 2:47 AM EDT [facility] Comment:Reported eGFRcr in m L/min/1.73m2 is based the CKD-EPI 2020 equation that does not use a race coefficient. Blood Venous blood specimen / Unknown Venipuncture / Unknown 06/20/2025 1:52 AM EDT 06/20/2025 1:59 AM EDT us Phillip Clark MD LAB BLOOD ORDERABLES Final R esult [facility] [address] [place] [address] * PERIPHERAL IV (SMARTFORM LINK) (06/20/2025 1:47 [...] * ECG Adult (06/19/2025 12:49 PM EDT) Only the most recent of3 resultswithin the time period is included. EKG DIAGNOSIS CLASS Abnormal MUSE ECG Ventricular Rate 85 BPM MUSE ECG Atrial Rate 85 BPM MUSE ECG MD Interval 176 ms MUSE ECG QRSD Interval 110 ms MUSE ECG QT Interval 402 ms MUSE ECG QTC Interval 478 ms MUSE ECG P [place] 43 degrees MUSE ECG R [place] -30 degrees MUSE ECG T Wave [place] 36 degrees MUSE ECG Diagnosis Poor data quality, interpretation may be adversely affected MUSE ECG Diagnosis Sinus rhythm with premature supraventricular complexes and with occasional premature ventricular complexes MUSE ECG Diagnosis Left axis deviation MUSE ECG Diagnosis Poor R-wave progression MUSE ECG Diagnosis Abnormal ECG MUSE ECG Diagnosis Recommend repeat ECG MUSE ECG Diagnosis MUSE ECG Diagnosis Confirmed by Aman Coe ([id number]) on 06/19/2025 1:33:10 PM MUSE ECG 06/19/2025 12:4 9 PM EDT 06/19/2025 1:33 PM EDT us Barbara MARIE ECG ORDERABLES Final Resul t MUSE ECG * XR Chest 1 View (06/19/2025 1:50 AM EDT) Only the most recent of6 resultswithin the time period is included. Anatomical Region Laterality Modality Chest Digital Radiogra [...] Kamran Arellano MD on 06/19/2025 5:26 AM hPillip Clark MD IMG XR PROCEDURES Final Resu lt * (ABNORMAL) Renal function panel (06/16/2025 5:35 PM EDT) Glucose, Plasma 89 74 - 99 mg/dL 06/16/2025 7:41 PM EDT [facility] BUN, Plasma 15 8 - 23 mg/dL 06/16/2025 7:41 PM EDT [facility] Creatinine, Plasma 0.79 0.70 - 1.20 mg/dL 06/16/2025 7:41 PM EDT [facility] BUN/Creatinine Ratio 19 06/16/2025 7:41 PM EDT [facility] Sodium, Plasma 134(L) 136 - 145 mmol/L 06/16/2025 7:41 PM EDT [facility] Potassium, Plasma 3.8 3.6 - 4.9 mmol/L 06/16/2025 7:41 PM EDT [facility] Chloride, Plasma 98 97 - 107 mmol/L 06/16/2025 7:41 PM EDT [facility] CO2, Plasma 25 22 - 29 mmol/L 06/16/2025 7:41 PM EDT [facility] Anion Gap 11 6 - 16 mmol/L 06/16/2025 7:41 PM EDT [facility] Total Calcium, Plasma 8.4(L) 8.9 - 10.2 mg/dL 06/16/2025 7:41 PM EDT [facility] Phosphorus, Plasma 2.2(L) 2.5 - 4.5 mg/dL 06/16/2025 7:41 PM EDT [facility] Albumin, Plasma 3.4(L) 3.5 - 5.2 g/dL 06/16/2025 7:41 PM EDT [facility] eGFRcr 96.2 mL/min/1.7 3m*2 06/16/2025 7:41 PM EDT [facility] Comment:Reported eGFRcr in m L/min/1.73m2 is based the CKD-EPI 2020 equation that does not use a race coefficient. Blood Venous blood specimen / Unknown Venipuncture / Unknown 06/16/2025 5:35 PM EDT 06/16/2025 7:12 PM EDT us Phillip Clark MD LAB BLOOD ORDERABLES Final R esult [facility] [address] [place] [address] * MD CRITICAL CARE, E/M 30-74 MINUTES (06/16/2025 9:58 [...] POCT glucose meter (06/16/2025 8:40 AM EDT) Only the most recent of6 resultswithin the time period is included. POCT Glucose 102(H) 74 - 99 mg/dL [...] Comment 06/16/2025 8:45 AM EDT [facility] Corrosion Control Fitter ID Fariba Blanton 025 8:45 AM EDT [facility] Device ID [id number] 06/16/2025 8:45 AM EDT [facility] Specimen Type POC Arterial 06/16/2025 8:45 AM EDT [facility] Blood Arterial blood specimen / Unknown 06/16/2025 8:40 AM EDT 06/16/2025 8:45 AM EDT us Phillip Clark MD LAB POINT OF CARE TE ST DOCKED DEVICE UNSOLICITED RESULTS Final Result [facility] [address] [place] [id number] * XR Abdomen 1 View (06/16/2025 1:20 AM EDT) Only the most recent of2 resultswithin the time period is included. Anatomical Region Laterality Modality Body Digital Radiogra [...] XR PROCEDURES Final Resu lt * (ABNORMAL) Blood gas, arterial (06/16/2025 12:36 AM EDT) Only the most recent of7 resultswithin the time period is included. pH, Arterial 7.43(H) 7.31 - 7.42 LAB HEMATOLOGY METHOD 06/16/2025 12:58 AM EDT [facility] pCO2, Arterial 41 32 - 45 mmHg LAB HEMATOLOGY METHOD 06/16/2025 12:58 AM EDT [facility] pO2, Arterial 65(L) >80 mmHg LAB HEMATOLOGY METHOD 06/16/2025 12:58 AM EDT [facility] SO2, Measured, Arterial 94 94 - 98 % LAB HEMATOLOGY METHOD 06/16/2025 12:58 AM EDT [facility] Base Excess, Arterial 2.5 -2.0 - 3.0 mmol/L LAB HEMATOLOGY METHOD 06/16/2025 12:58 AM EDT [facility] Bicarbonate, Calculated, Arterial 27(H) 22 - 26 mmol/L LAB HEMATOLOGY METHOD 06/16/2025 12:58 AM EDT [facility] Hematocrit, Whole Blood 37.9(L) 40.0 - 51.0 % LAB HEMATOLOGY METHOD 06/16/2025 12:58 AM EDT [facility] Sodium, Whole Blood 133(L) 136 - 145 mmol/L LAB HEMATOLOGY METHOD 06/16/2025 12:58 AM EDT [facility] Potassium, Whole Blood 3.4(L) 3.6 - 4.9 mmol/L LAB HEMATOLOGY METHOD 06/16/2025 12:58 AM EDT [facility] Chloride, Whole Blood 100 97 - 107 mmol/L LAB HEMATOLOGY METHOD 06/16/2025 12:58 AM EDT [facility] Glucose, Whole Blood 124(H) 74 - 99 mg/dL LAB HEMATOLOGY METHOD 06/16/2025 12:58 AM EDT [facility] Ionized Calcium, Whole Blood 4.3(L) 4.6 - 5.1 mg/dL LAB HEMATOLOGY METHOD 06/16/2025 12:58 AM EDT [facility] Lactate, Arterial, Whole Blood 1.0 0.5 - 1.6 mmol/L LAB HEMATOLOGY METHOD 06/16/2025 12:58 AM EDT [facility] Blood Arterial blood specimen / Unknown Arterial Puncture / Unknown 06/16/2025 12:36 AM EDT 06/16/2025 12:55 AM EDT us Phillip Clark MD LAB BLOOD ORDERABLES Final R esult [facility] [address] [place] [address] * MD CRITICAL CARE, E/M 30-74 MINUTES (06/15/2025 9:19 [...] IN CLINIC/BEDSIDE ORDERABLES Final Result * (ABNORMAL) CBC and Differential (06/15/2025 8:18 AM EDT) WBC Count 12.56(H) 3.70 - 10.30 10*3/uL LAB HEMATOLOGY METHOD 06/15/2025 8:47 AM EDT [facility] RBC Count 4.60 4.60 - 6.10 10*6/uL LAB HEMATOLOGY METHOD 06/15/2025 8:47 AM EDT [facility] HGB 12.8(L) 13.7 - 17.5 g/dL LAB HEMATOLOGY METHOD 06/15/2025 8:47 AM EDT [facility] HCT 39.4(L) 40.0 - 51.0 % LAB HEMATOLOGY METHOD 06/15/2025 8:47 AM EDT [facility] Platelet Count 120(L) 155 - 369 10*3/uL LAB HEMATOLOGY METHOD 06/15/2025 8:47 AM EDT [facility] MCV 86 79 - 98 fL LAB HEMATOLOGY METHOD 06/15/2025 8:47 AM EDT [facility] MCH 27.8 26.0 - 32.0 pg LAB HEMATOLOGY METHOD 06/15/2025 8:47 AM EDT [facility] MCHC 32.5 30.7 - 35.5 g/dL LAB HEMATOLOGY METHOD 06/15/2025 8:47 AM EDT [facility] RDW 15.5(H) 11.5 - 14.5 % LAB HEMATOLOGY METHOD 06/15/2025 8:47 AM EDT [facility] MPV 10.6 8.8 - 12.5 fL LAB HEMATOLOGY METHOD 06/15/2025 8:47 AM EDT [facility] nRBC 0.0 <=0.0 per 100 WBCs LAB HEMATOLOGY METHOD 06/15/2025 8:47 AM EDT [facility] Differential Type Automated LAB HEMATOLOGY METHOD 06/15/2025 8:47 AM EDT [facility] Neutrophils % 84 % LAB HEMATOLOGY METHOD 06/15/2025 8:47 AM EDT [facility] Lymphocytes % 5 % LAB HEMATOLOGY METHOD 06/15/2025 8:47 AM EDT [facility] Monocytes % 10 % LAB HEMATOLOGY METHOD 06/15/2025 8:47 AM EDT [facility] Eosinophils % 0 % LAB HEMATOLOGY METHOD 06/15/2025 8:47 AM EDT [facility] Basophils % 0 % LAB HEMATOLOGY METHOD 06/15/2025 8:47 AM EDT [facility] Immature Granulocytes % 1 % LAB HEMATOLOGY METHOD 06/15/2025 8:47 AM EDT [facility] Neutrophils Absolute 10.59(H) 1.60 - 6.10 10*3/uL LAB HEMATOLOGY METHOD 06/15/2025 8:47 AM EDT [facility] Lymphocytes Absolute 0.60(L) 1.20 - 3.90 10*3/uL LAB HEMATOLOGY METHOD 06/15/2025 8:47 AM EDT [facility] Monocytes Absolute 1.29(H) 0.30 - 0.90 10*3/uL LAB HEMATOLOGY METHOD 06/15/2025 8:47 AM EDT [facility] Eosinophils Absolute 0.00 0.00 - 0.50 10*3/uL LAB HEMATOLOGY METHOD 06/15/2025 8:47 AM EDT [facility] Basophils Absolute 0.02 0.00 - 0.10 10*3/uL LAB HEMATOLOGY METHOD 06/15/2025 8:47 AM EDT [facility] Immature Granulocytes Absolute 0.06 0.00 - 0.06 10*3/uL LAB HEMATOLOGY METHOD 06/15/2025 8:47 AM EDT [facility] Blood Venous blood specimen / Unknown Venipuncture / Unknown 06/15/2025 8:18 AM EDT 06/15/2025 8:34 AM EDT Narrative [facility] - 06/15/2025 8:47 AM EDT Therapeutic decision making should be based on absolute values, rather than percentages. us Phillip Clark MD LAB BLOOD ORDERABLES Final R esult Performing Organization Address [facility] [place] [address] * Ionized calcium, whole blood (06/15/2025 6:40 AM EDT) [facility] Ionized Calcium, Whole Blood 4.6 4.6 - 5.1 mg/dL LAB HEMATOLOGY METHOD 06/15/2025 6:50 AM EDT [facility] Blood Arterial blood specimen / Unknown Venipuncture / Unknown 06/15/2025 6:40 AM EDT 06/15/2025 6:48 AM EDT Phillip Clark MD LAB BLOOD ORDERABLES Final R esult Performing Organization Address [facility] [place] [address] * MD CRITICAL CARE, ADDL 30 MIN, MD CRITICAL CARE, ADDL 30 MIN (06/15/2025 12:21 [...] LAB HEMATOLOGY METHOD 06/15/2025 8:17 AM EDT [facility] Neutrophils % 85 % LAB HEMATOLOGY METHOD 06/15/2025 8:17 AM EDT [facility] Lymphocytes % 4 % LAB HEMATOLOGY METHOD 06/15/2025 8:17 AM EDT [facility] Monocytes % 10 % LAB HEMATOLOGY METHOD 06/15/2025 8:17 AM EDT [facility] Eosinophils % 0 % LAB HEMATOLOGY METHOD 06/15/2025 8:17 AM EDT [facility] Basophils % 0 % LAB HEMATOLOGY METHOD 06/15/2025 8:17 AM EDT [facility] Immature Granulocytes % 1 % LAB HEMATOLOGY METHOD 06/15/2025 8:17 AM EDT [facility] Immature Granulocytes Absolute 0.05 0.00 - 0.06 10*3/uL LAB HEMATOLOGY METHOD 06/15/2025 8:17 AM EDT [facility] Neutrophils Absolute 9.28(H) 1.60 - 6.10 10*3/uL LAB HEMATOLOGY METHOD 06/15/2025 8:17 AM EDT [facility] Lymphocytes Absolute 0.45(L) 1.20 - 3.90 10*3/uL LAB HEMATOLOGY METHOD 06/15/2025 8:17 AM EDT [facility] Monocytes Absolute 1.14(H) 0.30 - 0.90 10*3/uL LAB HEMATOLOGY METHOD 06/15/2025 8:17 AM EDT [facility] Basophils Absolute 0.02 0.00 - 0.10 10*3/uL LAB HEMATOLOGY METHOD 06/15/2025 8:17 AM EDT [facility] Eosinophils Absolute 0.00 0.00 - 0.50 10*3/uL LAB HEMATOLOGY METHOD 06/15/2025 8:17 AM EDT [facility] Blood Venous blood specimen / Unknown Venipuncture / Unknown 06/15/2025 12:20 AM EDT 06/15/2025 12:26 AM EDT Phillip Clark MD LAB BLOOD ORDERABLES Final R esult Performing Organization Address City/[facility] Co de Phone Number [facility] [address] [place] [address] * (ABNORMAL) Hemoglobin (06/15/2025 12:20 AM EDT) Only the most recent of2 resultswithin the time period is included. [facility] HGB 13.6(L) 13.7 - 17.5 g/dL LAB HEMATOLOGY METHOD 06/15/2025 12:36 AM EDT [facility] Blood Venous blood specimen / Unknown Venipuncture / Unknown 06/15/2025 12:20 AM EDT 06/15/2025 12:26 AM EDT Phillip Clark MD LAB BLOOD ORDERABLES Final R esult Performing Organization Address City/[facility] Co de Phone Number [facility] [address] [place] [address] * Hematocrit (06/15/2025 12:20 AM EDT) Only the most recent of2 resultswithin the time period is included. [facility] HCT 41.0 40.0 - 51.0 % LAB HEMATOLOGY METHOD 06/15/2025 12:36 AM EDT [facility] Blood Venous blood specimen / Unknown Venipuncture / Unknown 06/15/2025 12:20 AM EDT 06/15/2025 12:26 AM EDT Phillip Clark MD LAB BLOOD ORDERABLES Final R esult Performing Organization Address City/[facility] Co de Phone Number [facility] [address] [place] [address] * Potassium, Plasma (06/15/2025 12:20 AM EDT) Only the most recent of3 resultswithin the time period is included. [facility] Potassium, Plasma 4.5 3.6 - 4.9 mmol/L 06/15/2025 12:51 AM EDT [facility] Blood Venous blood specimen / Unknown Venipuncture / Unknown 06/15/2025 12:20 AM EDT 06/15/2025 12:26 AM EDT us Phillip Clark MD LAB BLOOD ORDERABLES Final R esult [facility] [address] [place] [address] * MD CRITICAL CARE, E/M 30-74 MINUTES (06/14/2025 5:35 [...] CLINIC/BEDSIDE ORDERABLES Final Result * (ABNORMAL) Blood gas panel with oximetry, mixed venous (06/14/2025 3:00 PM EDT) pH, Mixed Venous 7.28(L) 7.32 - 7.43 LAB HEMATOLOGY METHOD 06/14/2025 3:24 PM EDT [facility] pCO2, Mixed Venous 47 40 - 55 mmHg LAB HEMATOLOGY METHOD 06/14/2025 3:24 PM EDT [facility] pO2, Mixed Venous 54(H) 25 - 40 mmHg LAB HEMATOLOGY METHOD 06/14/2025 3:24 PM EDT [facility] SO2, Measured, Mixed Venous 84(H) 65 - 80 % LAB HEMATOLOGY METHOD 06/14/2025 3:24 PM EDT [facility] Bicarbonate, Calculated, Mixed Venous 22 22 - 26 mmol/L LAB HEMATOLOGY METHOD 06/14/2025 3:24 PM EDT [facility] Base Excess, Mixed Venous -4.7(L) -2.0 - 3.0 mmol/L LAB HEMATOLOGY METHOD 06/14/2025 3:24 PM EDT [facility] Hematocrit, Whole Blood 43.0 40.0 - 51.0 % LAB HEMATOLOGY METHOD 06/14/2025 3:24 PM EDT [facility] Sodium, Whole Blood 139 136 - 145 mmol/L LAB HEMATOLOGY METHOD 06/14/2025 3:24 PM EDT [facility] Potassium, Whole Blood 3.7 3.6 - 4.9 mmol/L LAB HEMATOLOGY METHOD 06/14/2025 3:24 PM EDT [facility] Chloride, Whole Blood 110(H) 97 - 107 mmol/L LAB HEMATOLOGY METHOD 06/14/2025 3:24 PM EDT [facility] Ionized Calcium, Whole Blood 4.6 4.6 - 5.1 mg/dL LAB HEMATOLOGY METHOD 06/14/2025 3:24 PM EDT [facility] Glucose, Whole Blood 149(H) 74 - 99 mg/dL LAB HEMATOLOGY METHOD 06/14/2025 3:24 PM EDT [facility] Oxyhemoglobin, Mixed Venous, Whole Blood 81.9(H) 40.0 - 70.0 % LAB HEMATOLOGY METHOD 06/14/2025 3:24 PM EDT [facility] Hemoglobin Reduced, Mixed Venous, Whole Blood 16.1 % LAB HEMATOLOGY METHOD 06/14/2025 3:24 PM EDT [facility] Total Hemoglobin, Mixed Venous, Whole Blood 14.0 13.7 - 17.5 g/dL LAB HEMATOLOGY METHOD 06/14/2025 3:24 PM EDT [facility] Blood Mixed venous blood specimen / Unknown Venipuncture / Unknown 06/14/2025 3:00 PM EDT 06/14/2025 3:23 PM EDT us Phillip Clark MD LAB BLOOD ORDERABLES Final R esult Performing Organization Address [facility] Co de Phone Number [facility] [address] [place] [address] * Eli auris Surveillance by PCR (06/14/2025 2:37 PM EDT) Eli auris PCR Result Not Detected Not Detected 06/15/2025 12:46 PM EDT [facility] Swab (Axilla and Groin) Non-blood Collection / Unknown 06/14/2025 2:37 PM EDT 06/14/2025 3:10 PM EDT Narrative [facility] - 06/15/2025 12:46 PM EDT This PCR assay was developed and its performance characteristics determined by [facility] as appropriate for clinical purposes. This assay has not been cleared or approved by the FDA, but is performed in a CLIA regulated laboratory that is qualified to perform high-complexity testing. Phillip Clark MD LAB MICROBIOLOGY - GENERAL O RDERABLES Final Result Performing Organization Address [facility] [place] [address] * Multi Drug Resistance Test (06/14/2025 2:37 PM EDT) Pathologist [facility] Culture No growth at day 1 06/15/2025 4:03 PM EDT [facility] Swab (Nares and Smita Rectal) Non-blood Collection / Unknown 06/14/2025 2:37 PM EDT 06/14/2025 3:10 PM EDT Narrative [facility] - 06/15/2025 4:03 PM EDT This test was developed and its performance characteristics determined by the [facility] Microbiology [facility]. Although the media is FDA-approved, it is not FDA-approved for all specimen types submitted. The FDA has determined that such clearance or approval is not necessary. This test is used for surveillance purposes. It should not be regarded as investigational or for research. The [facility] Microbiology Laboratory is certified under the Clinical Laboratory Improvement Amendments of 1988 (CLIA-88) as qualified to perform high complexity clinical laboratory testing. us Phillip Clark MD LAB MICROBIOLOGY - GENERAL O RDERABLES Final Result Performing Organization Address [facility] Co de Phone Number [facility] [address] [place] [address] * APTT (06/14/2025 2:36 PM EDT) Only the most recent of2 resultswithin the time period is included. aPTT 29 25 - 35 sec LAB COAGULATION METHOD 06/14/2025 4:11 PM EDT [facility] Blood Venous blood specimen / Unknown Venipuncture / Unknown 06/14/2025 2:36 PM EDT 06/14/2025 3:18 PM EDT us Phillip Clark MD LAB BLOOD ORDERABLES Final R esult Performing Organization Address [facility] [place] [address] * PB POINT OF CARE IMAGING PLACEHOLDER [...] supine Prep: ChloraPrep Patient monitoring: heart rate, monitoring engineer and continuous pulse ox Anesthesia block type: [...] mcg/kg/min) RV: same as baseline Aortic valve: tyonek valve replaced by mechanical valve. New valve is well seated with appropriate movement of valve leaflets. No perivalvular leak. Mean PG of 2mm Hg and AT 55 msec. Aorta: intact after decannulation. Findings were communicated with surgeon. us Jean Claude Staley MD ANESTHESIA ORDERABLES Edited Res ult - Final * (ABNORMAL) POCT arterial blood gas gem (06/14/2025 2:00 PM EDT) Only the most recent of10 resultswithin the time period is included. pH, Arterial 7.35 7.31 - 7.42 06/14/2025 2:02 PM EDT [facility] pCO2, Arterial 38 32 - 45 mm Hg 06/14/2025 2:02 PM EDT [facility] pO2, Arterial 376 >80 mm Hg 06/14/2025 2:02 PM EDT [facility] SO2, Arterial 100(H) 94 - 98 % 06/14/2025 2:02 PM EDT [facility] Base Excess, Arterial -4.2(L) -2 - 3 mmol/L 06/14/2025 2:02 PM EDT [facility] HCO3, Arterial 21.0(L) 22 - 26 mmol/L 06/14/2025 2:02 PM EDT [facility] Total Hemoglobin, Arterial, Whole Blood 14.5 13.7 - 17.5 g/dL 06/14/2025 2:02 PM EDT [facility] Hematocrit, Arterial 44.0 40 - 51.0 % 06/14/2025 2:02 PM EDT [facility] Sodium, Arterial 136 136 - 145 mmol/L 06/14/2025 2:02 PM EDT [facility] Potassium, Arterial 3.4(L) 3.6 - 4.9 mmol/L 06/14/2025 2:02 PM EDT [facility] Chloride, Whole Blood 105 97 - 107 mmol/L 06/14/2025 2:02 PM EDT [facility] Glucose, Arterial 138(H) 74 - 99 mg/dL 06/14/2025 2:02 PM EDT [facility] Ionized Calcium, Arterial 4.9 4.6 - 5.1 mg/dL 06/14/2025 2:02 PM EDT [facility] Lactate, Arterial 4.2(H) 0.5 - 1.6 mmol/L 06/14/2025 2:02 PM EDT [facility] Body Temperature 37.0 Celsius 06/14/2025 2:02 PM EDT [facility] pH, Temp Corrected, Arterial 7.35 7.31 - 7.42 06/14/2025 2:02 PM EDT [facility] pCO2, Temp Corrected, Arterial 38 32 - 45 mm Hg 06/14/2025 2:02 PM EDT [facility] pO2, Temp Corrected, Arterial 376 >80 mm Hg 06/14/2025 2:02 PM EDT [facility] Corrosion Control Fitter ID Ricki Zamarripa 06/14/2025 2:02 PM EDT [facility] Blood Whole blood specimen / Unknown 06/14/2025 2:00 PM EDT 06/14/2025 2:02 PM EDT us Phillip Clark MD LAB POINT OF CARE TE ST DOCKED DEVICE UNSOLICITED RESULTS Final Result [facility] [address] [place] [address] * POCT ACT (06/14/2025 12:43 PM EDT) Only the most recent of7 resultswithin the time period is included. [facility] ACT+ (HIGH RANGE) 98 68 - 600 Seconds 06/14/2025 12:49 PM EDT [facility] Corrosion Control Fitter ID Vick Dupont 06/14/2025 12:49 PM EDT [facility] ACT Device ID [id number] 06/14/2025 12:49 PM EDT [facility] Comment 06/14/2025 12:49 PM EDT [facility] Comment: ACT performed by [...] UNSOLICITED RESULTS Final Result Performing Organization Address City/State/[facility] Co de Phone Number HEALTHCARE LAB [address] LAB 800 [place] [address] * (ABNORMAL) QPLUS (06/14/2025 11:55 AM EDT) Clot Time 06/14/2025 12:12 PM EDT [facility] Clot Time Ratio 12:12 PM EDT [facility] POCT Clot Stiffness 14.6 13.0 - 33.2 hectoPascals 06/14/2025 12:12 PM EDT [facility] Platelet Contribution to Clot Stiffnes 13.1 11.9 - 29.8 hectoPascals 06/14/2025 12:12 PM EDT [facility] Fibrinogen Contribution to Clot Stiffness 1.5 1.0 - 3.7 hectoPascals 06/14/2025 12:12 PM EDT [facility] Heparinase Clot Time 175(H) 103 - 153 Seconds 06/14/2025 12:12 PM EDT [facility] Corrosion Control Fitter ID Ricki Zamarripa 06/14/2025 12:12 PM EDT [facility]ARE [facility] Device ID [id number] 06/14/2025 12:12 PM EDT [facility] Whole Blood 06/14/2025 11:5 5 AM EDT 06/14/2025 12:12 PM EDT Narrative [facility] - 06/14/2025 12:[address]: No Clot Detected us Phillip Clark MD LAB POINT OF CARE TE ST DOCKED DEVICE UNSOLICITED RESULTS Final Result [facility] [address] [place] [address] * Surgical Pathology Exam (06/14/2025 10:18 AM EDT) Case Report Surgical Pathology Case: [id number] Authorizing Provider: Phillip Clark MD Collected: 06/14/2025 1018 Ordering Location: [facility] A OPERATING ROOM Received: 06/14/2025 1413 Pathologist: Beth Lake MD Specimen: Heart, aortic valve leaflets 06/15/2025 11:44 AM EDT [facility] Final Diagnosis A. AORTIC VALVE LEAFLETS, REPLACEMENT: - FIBROSIS AND MYXOID DEGENERATION. 06/15/2025 11:44 AM EDT [facility] at 1144 EDT Clinical Information Severe aortic regurgitation [I35.1] 06/15/2025 11:44 AM EDT [facility] Gross Description A. AORTIC VALVE LEAFLETS Received fresh and placed in formalin labeled aortic valve leaflets are 2 white-montez soft cardiac leaflets ranging in size from 2.5-4.0 cm in greatest dimension. Assistant Counsel sections are submitted in cassette A1. Cold Time: 3h 55m April Santos 06/15/2025 11:44 AM EDT [facility] Tissue Heart structure / Unknown 06/14/2025 10:18 AM EDT 06/14/2025 2:13 PM EDT Comment:Pre-op diagnosis: Severe aortic regurgitation [I35.1] us Phillip Clark MD LAB PATHOLOGY ORDERABLES Fin al Result Performing Organization Address City/[facility]/ZIP Co de Phone Number [facility] [address] [place] [address] * MD AN CENTRAL LINE DOUBLE LUMEN, PB ANESTHESIA NON-TIMED PROCEDURE PLACEHOLDER, ANESTHESIA ULTRASOUND GUIDED, MD INSERT/PLACE FLOW DIRECT CATH, PB POINT OF [...] MD ANESTHESIA ORDERABLES Final Resu lt * MD AN ELECTIVE ENDOTRACHEAL AIRWAY, PB ANESTHESIA PLACEHOLDER [...] MD ANESTHESIA ORDERABLES Final Resu lt * Type and Screen (06/14/2025 6:27 AM [...] ORDERABL ES Final Result Performing Organization Address [facility] de Phone Number BLOOD BANK 800 [place] [address], [place] * Type & Screen, 30 Days (06/09/2025 [...] ORDERABL ES Final Result Performing Organization Address City/[facility] Co de Phone Number BLOOD BANK [address] * (ABNORMAL) Hemoglobin A1c (06/09/2025 1:39 PM [...] Adults <6.0% Children and Adolescents <7.5% Source: [place] [employer]. Standards of medical care in diabetes,2017. Diabetes Care.2017:40 (suppl 1):S1-S135. Phillip Clark MD LAB BLOOD ORDERABLES Final R esult [facility] [address] [place] [address] * Comprehensive Metabolic Panel, Plasma (06/09/2025 1:39 [...] esult [facility] [address] [place] [address] * CT Chest wo IV Contrast (04/14/2025 [...] MD IMG CT PROCEDURES Final Resu lt from Last 3 Months Insurance [facility] MEDICARE Advance Directives * Full Code (Latest Code Status on File) Date Activated Date Inactivated Comments 06/14/2025 2:35 PM 06/20/2025 4:27 PM Question Answer Comments I have reviewed the capacity from the link above and, if needed, have updated to appropriate status: Yes Care Teams Bleach Packer Relationship Specialty Start Date End Date Kamran Singh MD [address] [place] [address] PCP - General 02/28/25
[2025-06-22 12:38] LABS: Hematocrit 34.8 % (42.0-52.0); Hemoglobin 11.3 g/dL (14.1-18.0); Immature Granulocytes % 1.5 %; Mean Corpuscular HGB Conc 32.5 g/dL (31.8-35.4); Mean Corpuscular Hemoglobin 27.6 pg (27.0-31.2); Mean Corpuscular Volume 85.1 fl (80-94); Nucleated Red Blood Cells % 0 %; Platelet Count 334 K/mm3 (142-424); Red Blood Count 4.09 M/mm3 (4.60-6.20); Red Cell Distribution Width-SD 45.7 fL; White Blood Count 10.7 K/mm3 (4.8-10.8)
[2025-06-22 12:57] LABS: INR 1.55 (0.9-1.1); Prothrombin Time 16.7 seconds (10.1-12.5)
[2025-06-22 12:59] LABS: Albumin Level 3.7 g/dl (3.5-5.0); Chloride 100 mmol/L (98-107); Potassium 4.5 mmoL/L (3.5-5.1); Sodium 133 mmol/L (136-145)
[2025-06-22 13:01] LABS: Blood Urea Nitrogen 19 mg/dl (9-20); Creatinine,Serum 0.80 mg/dl (0.66-1.25); Estimated Glomerular Filt Rate 96 ml/min (>60); GFR (African American) 116 ML/MIN (>60)
[2025-06-22 13:02] LABS: Alanine Aminotransferase 142 U/L (12-78); Alkaline Phosphatase 167 U/L (38-126); Anion Gap 12.5 mEq/L (5-15); Aspartate Amino Transferase 81 U/L (17-59); Bilirubin,Direct 0.1 mg/dl (0.0-0.4); Bilirubin,Indirect 1.0 mg/dL (0.0-0.9); Bilirubin,Total 1.1 mg/dl (0.2-1.3); Bilirubin,Unconjugated 1.0 mg/dL (0.0-1.1); Calcium 8.5 mg/dl (8.4-10.2); Carbon Dioxide 25 mmol/L (22.0-30.0); Cholesterol 113 mg/dl (140-200); Glucose 99 mg/dl (74-100); Magnesium 2.3 mg/dl (1.6-2.3); Total Protein,Serum 6.5 g/dl (6.3-8.2); Triglycerides 182 mg/dl (30-150)
[2025-06-22 13:03] LABS: HDL Cholesterol 35 mg/dl (40-60)
[2025-06-22 13:12] LABS: NT Pro Brain Natriuretic Pep. 736 pg/mL (0-125)
[2025-06-22 13:33] LABS: Thyroid Stimulating Hormone 2.71 uIU/mL (0.465-4.68)
[2025-06-22 16:16] LABS: Free T4 (Free Thyroxine) 1.22 ng/dl (0.78-2.19)
== END 2025-06-22 23:59 | disposition home or self-care (01) ==
LOC: ACC 12:01 → LAB 12:03
PROVIDERS: PCP Family Medicine; Visit Provider Nurse Practitioner
DX: I25.10 Atherosclerotic heart disease of native coronary artery without angina pectoris (principal); E11.9 Type 2 diabetes mellitus without complications; E78.5 Hyperlipidemia, unspecified; I11.0 Hypertensive heart disease with heart failure; I50.20 Unspecified systolic (congestive) heart failure; Z95.5 Presence of coronary angioplasty implant and graft
CPT/HCPCS: 36415; 80048; 80061; 80076; 83735; 83880; 84439; 84443; 85025; 85610

== ENCOUNTER 2025-06-24 11:03 | Outpatient (CLI) | payer BC, MEDICARE, SELFPAY ==
--- OUTSIDE RECORDS SUMMARY | 2025-05-05 10:20 | XMS_ITS | Encounter Summary ---
Author Organization [facility] Address [address] [id number] Care Team Providers Care Flat Ironer Name Role Phone Kamran Singh MD Primary Care Provider +1- [phone] Encounter Details Date Type Department Care Team (Latest Contact Info) Description 05/05/2025 10:20 AM EDT Office Visit [facility] [address], [address] [place] [address] Phillip Clark MD [address] [place] [address] Severe aortic regurgitation (Primary Dx) [...] present and normoactive x 4 quadrants SKIN: [place], warm, and dry. No rash, sores, or [...] Description 07/07/2025 2:40 PM EST Office Visit [facility] [address], [address] [place] [address] Phillip Clark MD [address] [place] [address] documented as of this encounter Visit Diagnoses Diagnosis Severe aortic regurgitation- Primary documented in this encounter Additional Health Concerns Assessment Noted Time A fall risk assessment has been complete d for the patient 05/05/2025 9:58 AM EDT A Body Mass Index follow-up plan has been documented for the patient 05/05/2025 10:51 AM EDT documented as of this encounter Care Teams Flat Ironer Relationship Specialty Start Date End Date Kamran Singh MD [address] [place] [address] PCP - General 02/28/25 documented as of this encounter
--- OUTSIDE RECORDS SUMMARY | 2025-06-07 08:30 | XMS_ITS | Encounter Summary ---
Author Organization [facility] Address [address] [place] [address] Care Team Providers Care Export Sales Assistant Name Role Phone Kamran Singh MD Primary Care Provider +1- [phone] Encounter Details Date Type Department Care Team (Late st Contact Info) Description 06/07/2025 8:30 AM EDT Pre-Admission Testing [place] [facility] [address], [address] [place] [address] Social History Tobacco Use Types Packs/Day Years [...] any time in the past [address] [facility], were you homeless or living in a assisted (including now)? No 06/15/2025 [facility] Utilities Answer Date Recorded In the [...] Clark MD on 06/14/2025 at [facility] under general anesthesia. aortic enlargement, measured [...] fibrillation, CHF, dysrhythmias, hyperlipidemia, pacemaker or past [place]. hypertension: Exercise tolerance is 1 flight of [...] 2 tablets by mouth every morning. Under [place] law, monthly prescriptions (30days) can be refilled [...] card, photo ID, along with power of hose operator, guardianship or advanced directives if applicable [...] Office Visit [place] [facility] [address], [address] [place] [address] Phillip Clark MD [address] [place] [address] documented as of this encounter Visit Diagnoses Not on filedocumented in this encounter Additional Health Concerns Assessment Noted Time A fall risk assessment has been complete d for the patient 05/05/2025 9:58 AM EDT A Body Mass Index follow-up plan has been documented for the patient 05/05/2025 10:51 AM EDT documented as of this encounter Care Teams Export Sales Assistant Relationship Specialty Start Date End Date Kamran Singh MD [address] [place] [address] PCP - General 02/28/25 documented as of this encounter
--- OUTSIDE RECORDS SUMMARY | 2025-06-09 12:20 | XMS_ITS | Encounter Summary ---
Author Organization [facility] Address [address] [id number] Care Team Providers Care Occupational Therapy Instructor Name Role Phone Kamran Singh MD Primary Care Provider +1- [phone] Encounter Details Date Type Department Care Team (Latest Contact Info) Description 06/09/2025 12:20 PM EDT Office Visit [facility] [address], [address] [place] [address] Phillip Clark MD [address] [place] [address] Severe aortic regurgitation (Primary Dx) [...] Notes * Progress Notes - Lorelei Dominique, INSPECTOR SHEET METAL PARTS - 06/09/2025 12:20 PM EDT Reason for [...] 2 tablets by mouth every morning. Under [employer] law, monthly prescriptions (30 days) can be refilled at 25 days and three-month prescriptions (90 days) at 80 days. Please contact the insurance company with questions if refills are denied. Patient taking differently: Take 2 tablets by mouth every 4 hours as needed. Under [employer] law, monthly prescriptions (30 days) can be [...] Description 07/07/2025 2:40 PM EST Office Visit [facility] Cardiothoracic [address], [address] [place] [address] Phillip Clark MD [address] [place] [phone] documented as of this encounter Results * [...] LAB HEMATOLOGY METHOD 06/09/2025 3:49 PM EDT [facility] RBC Count 5.62 4.60 - 6.10 10*6/uL LAB HEMATOLOGY METHOD 06/09/2025 3:49 PM EDT [facility] HGB 15.6 13.7 - 17.5 g/dL LAB HEMATOLOGY METHOD 06/09/2025 3:49 PM EDT [facility] HCT 49.2 40.0 - 51.0 % LAB HEMATOLOGY METHOD 06/09/2025 3:49 PM EDT [facility] Platelet Count 205 155 - 369 10*3/uL LAB HEMATOLOGY METHOD 06/09/2025 3:49 PM EDT [facility] MCV 88 79 - 98 fL LAB HEMATOLOGY METHOD 06/09/2025 3:49 PM EDT [facility] MCH 27.8 26.0 - 32.0 pg LAB HEMATOLOGY METHOD 06/09/2025 3:49 PM EDT [facility] MCHC 31.7 30.7 - 35.5 g/dL LAB HEMATOLOGY METHOD 06/09/2025 3:49 PM EDT [facility] RDW 15.3(H) 11.5 - 14.5 % LAB HEMATOLOGY METHOD 06/09/2025 3:49 PM EDT [facility] MPV 10.6 8.8 - 12.5 fL LAB HEMATOLOGY METHOD 06/09/2025 3:49 PM EDT [facility] nRBC 0.0 <=0.0 per 100 WBCs LAB HEMATOLOGY METHOD 06/09/2025 3:49 PM EDT [facility] Blood Venous blood specimen / Unknown Venipuncture / Unknown 06/09/2025 1:39 PM EDT 06/09/2025 1:40 PM EDT us Phillip Clark MD LAB BLOOD ORDERABLES Final R esult [facility] [address] [place] [address] * Comprehensive Metabolic Panel, Plasma (06/09/2025 1:39 PM EDT) [facility] Glucose, Plasma 86 74 - 99 mg/dL 06/09/2025 3:57 PM EDT [facility] BUN, Plasma 15 8 - 23 mg/dL 06/09/2025 3:57 PM EDT [facility] Creatinine, Plasma 0.85 0.70 - 1.20 mg/dL 06/09/2025 3:57 PM EDT [facility] BUN/Creatinine Ratio 18 06/09/2025 3:57 PM EDT [facility] Sodium, Plasma 139 136 - 145 mmol/L 06/09/2025 3:57 PM EDT [facility] Potassium, Plasma 4.7 3.6 - 4.9 mmol/L 06/09/2025 3:57 PM EDT [facility] Chloride, Plasma 107 97 - 107 mmol/L 06/09/2025 3:57 PM EDT [facility] CO2, Plasma 24 22 - 29 mmol/L 06/09/2025 3:57 PM EDT [facility] Anion Gap 8 6 - 16 mmol/L 06/09/2025 3:57 PM EDT [facility] Total Calcium, Plasma 9.0 8.9 - 10.2 mg/dL 06/09/2025 3:57 PM EDT [facility] Total Protein 6.6 6.3 - 7.9 g/dL 06/09/2025 3:57 PM EDT [facility] Albumin, Plasma 4.2 3.5 - 5.2 g/dL 06/09/2025 3:57 PM EDT [facility] AST, Plasma 23 10 - 50 U/L 06/09/2025 3:57 PM EDT [facility] ALT, Plasma 23 10 - 50 U/L 06/09/2025 3:57 PM EDT [facility] Alkaline Phosphatase, Plasma 66 40 - 115 U/L 06/09/2025 3:57 PM EDT [facility] Total Bilirubin, Plasma 0.8 0.2 - 1.1 mg/dL 06/09/2025 3:57 PM EDT [facility] eGFRcr 94.1 mL/min/1.7 3m*2 06/09/2025 3:57 PM EDT [facility] Comment:Reported eGFRcr in m L/min/1.73m2 is based the CKD-EPI 2020 equation that does not use a race coefficient. Blood Venous blood specimen / Unknown Venipuncture / Unknown 06/09/2025 1:39 PM EDT 06/09/2025 1:40 PM EDT us Phillip Clark MD LAB BLOOD ORDERABLES Final R esult [facility] [address] [place] [address] * (ABNORMAL) Hemoglobin A1c (06/09/2025 1:39 PM EDT) Hemoglobin A1c 5.7(H) <5.7 % 06/09/2025 6:09 PM EDT [facility] Blood Venous blood specimen / Unknown Venipuncture / Unknown 06/09/2025 1:39 PM EDT 06/09/2025 1:40 PM EDT Narrative [facility] - 06/09/2025 6:09 PM EDT HA1C Interpretive Data: Diagnosis of Diabetes: Diabetic > or = 6.5% Pre-diabetic 5.7 to 6.4% Non-diabetic < or = 5.6% Glycemic Targets for Type I and Type II Diabetics: Non- Adults <7.0% Adults <6.0% Children and Adolescents <7.5% Source: [place] [employer]. Standards of medical care in diabetes,2017. Diabetes Care.2017:40 (suppl 1):S1-S135. Phillip Clark MD LAB BLOOD ORDERABLES Final R esult [facility] [address] [place] [address] * Protime-INR (06/09/2025 1:39 PM EDT) Prothrombin Time 13.6 12.0 - 14.3 sec LAB COAGULATION METHOD 06/09/2025 3:58 PM EDT [facility] INR 1.0 0.9 - 1.1 LAB COAGULATION METHOD 06/09/2025 3:58 PM EDT [facility] Blood Venous blood specimen / Unknown Venipuncture / Unknown 06/09/2025 1:39 PM EDT 06/09/2025 1:40 PM EDT Narrative [facility] - 06/09/2025 3:58 PM [...] ORDERABLES Final R esult Performing Organization Address City/[facility]/ZIP Co de Phone Number [facility] [address] [place] [address] * APTT (06/09/2025 1:39 PM EDT) aPTT 33 25 - 35 sec LAB COAGULATION METHOD 06/09/2025 3:58 PM EDT [facility] Blood Venous blood specimen / Unknown Venipuncture / Unknown 06/09/2025 1:39 PM EDT 06/09/2025 1:40 PM EDT Phillip Clark MD LAB BLOOD ORDERABLES Final R esult Performing Organization Address [facility] [place] [address] * Type & Screen, 30 Days (06/09/2025 [...] ORDERABL ES Final Result BLOOD BANK [address] [place] [address], documented in this encounter Visit Diagnoses Diagnosis Severe aortic regurgitation- Primary Severe aortic regurgitation documented in this encounter Additional Health Concerns Assessment Noted Time A fall risk assessment has been complete d for the patient 06/09/2025 12:15 PM EDT A Body Mass Index follow-up plan has been documented for the patient 06/09/2025 2:00 PM EDT documented as of this encounter Care Teams Occupational Therapy Instructor Relationship Specialty Start Date End Date Kamran Singh MD [address] [place] [address] PCP - General 02/28/25 documented as of this encounter
--- OUTSIDE RECORDS SUMMARY | 2025-06-09 13:42 | XMS_ITS | Encounter Summary ---
Author Organization [facility] Address [address] [place] [address] Care Team Providers Care Collet Maker Name Role Phone Kamran Singh MD Primary Care Provider +1- [phone] Encounter Details Date Type Department Care Team (Latest Contact Info) Description 06/09/2025 1:42 PM EDT - 06/09/2025 11:59 PM EDT Hospital Encounter [place] [facility] [address], [address] [place] [address] Severe aortic regurgitation Discharge Disposition: Home or [...] any time in the past 12 m [facility], were you homeless or living in a ch[facility] (including now)? No 06/15/2025 [facility] Utilities Answer Date Recorded In the past [...] Description 07/07/2025 2:40 PM EST Office Visit [place] [facility] [address], [address] [place] [address] Phillip Clark MD [address] [place] [address] documented as of this encounter [...] documented as of this encounter Care Teams Collet Maker Relationship Specialty Start Date End Date Kamran Singh MD [address] [place] [address] PCP - General 02/28/25 documented as of this encounter
--- OUTSIDE RECORDS SUMMARY | 2025-06-14 05:18 | XMS_ITS | Encounter Summary ---
Author Organization [facility] Address [address] [place] [id number] Care Team Providers Care Home Health Provider Name Role Phone Kamran Singh MD Primary Care Provider [phone] Reason for Referral * Consultation (Routine) - Authorized Specialty Diagnoses / Procedures Referred By Nathalia garcia Referred To Contact Cardiac Rehabilitation Diagnoses S/P AVR Phillip Clark MD [address] [address] Phone: tel: fax: Referral ID Status Reason Start Date Expiration Date V isits Requested Visits Authorized [id number] Authorized 06/20/2025 12/20/2026 1 1 Reason for Visit * Auth/Cert (Routine) Specialty Diagnoses / Procedures Referred By Nathalia garcia Referred To Contact Diagnoses Severe aortic regurgitation Severe aortic regurgitation [I35.1] Procedures WA -AORT GRF W/CARD BYP F/AORTIC DISSECTION AORTIC ROOT RECONSTRUCTION Phillip Clark MD [address] [address] Phone: tel: fax: [facility] OPERATING ROOM [address] [place] [address] Phone: tel: Referral ID Status Reason Start Date Expiration Date Visits Re quested Visits Authorized [id number] 1 1 Encounter Details Date Type Department Care Team (Latest Contact Info) Description 06/14/2025 5:18 AM EDT - 06/20/2025 2:25 PM EDT Hospital Encounter [facility] Inpatient [address] [place] [address] Phillip Clark MD [address] [place] [address] Other secondary hypertension (Primary Dx); [...] time in the past [address] [facility], were you homeless or living in a retirement (including now)? No 06/15/2025 [facility] Utilities Answer Date Recorded In [...] referral and prefers to attend at [facility]. [place] will contact Mr. Forrest to discuss and [...] 2. Eligibility: Heart valve surgery 3. Exceptions/exclusions: [facility] Cardiac Rehab Exclusions: None 4. Referral: [facility] Cardiac Rehab Referral: Patient agreed with referral to the cardiac rehabilitation program at [facility] in [place], [place], phone number [phone]. 5. Information sent: Information Sent: Appropriate information will be sent to the receiving cardiac rehabilitation program.: * Progress Notes - Oumou Berger - 06/20/2025 10:15 AM EDT Case Management Discharge Note Bradley Forrest 69 y.o. male CSN: [id number] Admission: 06/14/2025 5:18 AM Primary Problem: Aortic valve regurgitation Primary Older Worker Specialist: Primary Caregiver: Self Assistance Available at Discharge: Current Outpatient/Agency/Support Group: DME Availability of Care Givers (#Hours): Other (comment) (As needed) Family/Older Worker Specialist(s) Willingness Assessed to care for patient at home: Yes Family/Older Worker Specialist(s) Readiness Assessed to care for patient at [...] Recieved By: patient Follow-up: Jolynn Pollard APRN [facility] Cardiology [address] [place] [address] [address], [place] [address] Go on 08/22/2025 Your cardiology appointment is on August 22 at 11am Please arrive 15 minutes early and bring UPDATED medication list. [address] [facility] [id number] Go on 06/22/2025 Your first appointment for your Warfarin/Coumadin management is this FridayJune 22 at 11:30am. Please report to [facility] front admission desk and tell them you are checking in to the Pharmacy Anticoagulation Clinic. The returned item clerk will call the pharmacist who will meet you in the lobby and escort you to the clinic. Please bring all medications you are taking and your insurance card. If you have any issues please call [phone] ext: [phone] and then choose option 2. Discharge Transportation: Transportation Anticipated: family or friend will provide Transportation Home at Discharge: Family/Friend will Provide Follow Up Transport: Transportation Needed to Follow up Appoinments: Family/Friend will Provide Additional Comments: SW spoke with primary team this date who indicate the pt is medically stable for DC this date and does not require further [facility]-based care. Pt to DC home with , to transport. Covering RNCM ordered rollator from [facility] to be delivered to bedside. No [...] Plan Anticoagulation Plan Warfarin Pharmacist Managed?: No [facility] Warfarin Dosing Protocol Followed?: No Reason for Protocol Departure: CT Surgery Bridging Agent in Conjunction With Warfarin? : No INR Monitoring Frequency: Monitor INR daily Patient Education : Complete and documented Warfarin dosing and adjustment per CT surgery provider. Transitions of Care Outpatient provider managing warfarin after [facility] discharge: TBD - possibly [facility] clinic Recommended date for outpatient INR assessment: TBD - of note, enoxparin copay $0 for 7 day supply Will continue to follow patient's clinical progress daily. Libia Stevenson PharmD, BCCP Clinical Pharmacist - Cardiothoracic Surgery Available via [employer] * Progress Notes - Phillip Clark MD [...] Ongoing, Progressing Intervention: Promote Activity and Functional [place] Flowsheets (Taken 06/19/20251704 by Vicente Hussein, RN) Activity Assistance Provided: assistance, stand-by Adaptive Equipment Use: use encouraged Self-Care Promotion: independence encouraged Problem: Self-Care Deficit Goal: Improved Ability to Complete Activities of Daily Living Outcome: Ongoing, Progressing Intervention: Promote Activity and Functional [place] Flowsheets (Taken 06/19/20251704 by Vicente Hussein RN) [...] Care Reviewed With: patient family 06/19/20251704 by iVcente Hussein RN Outcome: Ongoing, Progressing Flowsheets Taken [...] Ongoing, Progressing Intervention: Promote Activity and Functional [place] Flowsheets (Taken 06/19/20251704) Activity Assistance Provided: assistance, [...] Ongoing, Progressing Intervention: Promote Activity and Functional [place] Flowsheets (Taken 06/19/20251704) Activity Assistance Provided: assistance, [...] Plan Anticoagulation Plan Warfarin Pharmacist Managed?: No [facility] Warfarin Dosing Protocol Followed?: No Reason for Protocol Departure: CT Surgery Bridging Agent in Conjunction With Warfarin? : No Goal PTT/anti-Xa: 2.5-3.5 INR Monitoring Frequency: Monitor INR daily Patient Education : Complete and documented Warfarin dosing and adjustment per CT surgery provider. Transitions of Care Outpatient provider managing warfarin after [facility] discharge: TBD - possibly clinic [...] rhythm - continue warfarin CT surgery pager [phone] [1] acetaminophen, 650 mg, Oral, q4h DEMETRIUS [...] Care Reviewed With: patient family Taken 06/18/2025 0058 Outcome Evaluation: Plan of care discussed with [...] Ongoing, Progressing Intervention: Promote Activity and Functional [place] Flowsheets (Taken 06/19/2025344) Activity Assistance Provided: assistance, stand-by Self-Care Promotion: independence encouraged Problem: Self-Care Deficit Goal: Improved Ability to Complete Activities of Daily Living Outcome: Ongoing, Progressing Intervention: Promote Activity and Functional [place] Flowsheets (Taken 06/19/2025344) Activity Assistance Provided: assistance, [...] Intervention: Promote Wound Healing Flowsheets (Taken 06/19/2025 0948) Sleep/Rest Enhancement: awakenings minimized consistent schedule promoted regular sleep/rest pattern promoted room darkened * Jelanimassimo Samantha - Brittaney Dumas RN - 06/18/2025 6:29 PM EDT Images from the original note were not included. [id number] Tratamiento para contracciones ventriculares prematuras (CVP) [place] [...] Confusi??n. Last Reviewed Date: 2024 00:00:00 ?? 8877-0578 The makeena. All rights reserved. This information is not intended as a substitute for professional medical care. Always follow your healthcare professional's instructions. * Gabriel GonsalezTRISTAN - Brittaney Dumas RN - 06/18/2025 6:29 PM EDT Images from the original note were not included. [id number] C??mo comprender las contracciones ventriculares prematuras (CVP) [...] se??al activa partes cercanas del coraz??n contraer. [place] permite que el coraz??n se comprima [...] card??acos anteriores, el coraz??n expulsar?? muypoca mushtaq. [place] provoca aria sensaci??n de pausa entre latidos. El siguiente latido card??aco suele ser m??s bea, ya que la pausa lo permite que el coraz??n descanse y se llene de mushtaq. [place] lleva a aria sensaci??n de latido [...] port??til jameson unos d??as o incluso semanas. [place] puede ayudar a diagnosticar los CVP [...] im??genes del coraz??n. ? An??lisis de mushtaq. [place] se hace para comprobar los electrolitos y concentraciones tiroideas. Last Reviewed Date: 2024 00:00:00 ?? 5830-1979 [employer]. All rights reserved. This information is not intended as a substitute for professional medical care. Always follow your healthcare professional's instructions. * Gabriel Singh - Brittaney Dumas RN - 06/18/2025 6:29 PM EDT Images from the original note were not included. [id number] Tratamiento para contracciones ventriculares prematuras (CVP) Las [...] Confusi??n. Last Reviewed Date: 2024 00:00:00 ?? 4067-3885 [employer]. All rights reserved. This information is not intended as a substitute for professional medical care. Always follow your healthcare professional's instructions. * Gabriel Singh - Brittaney Dumas RN - 06/18/2025 6:29 PM EDT Images from the original note were not included. [id number] C??mo comprender las contracciones ventriculares prematuras (CVP) [...] se??al activa partes cercanas del coraz??n contraer. [place] permite que el coraz??n se comprima [...] card??acos anteriores, el coraz??n expulsar?? muypoca mushtaq. [place] provoca aria sensaci??n de pausa entre latidos. El siguiente latido card??aco suele ser m??s bea, ya que la pausa lo permite que el coraz??n descanse y se llene de mushtaq. [place] lleva a aria sensaci??n de latido [...] port??til jameson unos d??as o incluso semanas. [place] puede ayudar a diagnosticar los CVP [...] im??genes del coraz??n. ? An??lisis de mushtaq. [place] se hace para comprobar los electrolitos y concentraciones tiroideas. Last Reviewed Date: 2024 00:00:00 ?? 2535-2626 The makeena. All rights reserved. This information is not intended as a substitute for professional medical care. Always follow your healthcare professional's instructions. * Gabriel Singh - Brittaney Dumas RN - 06/18/2025 6:28 PM EDT Images from the original note were not included. 33795 Treatment for Premature Ventricular Contractions (PVCs) Premature [...] confusion Last Reviewed Date: 2024 00:00:00 ?? 6604-5365 [employer] makeena. All rights reserved. This information is not intended as a substitute for professional medical care. Always follow your healthcare professional's instructions. * Gabriel Singh - Brittaney Dumas RN - 06/18/2025 6:28 PM EDT Images from the original note were not included. 14041 Understanding Premature Ventricular Contractions (PVCs) Premature ventricular [...] to 2 weeks. ? Insertable (or implantable) coordinator of rehabilitation services. This small device is implanted under the [...] levels. Last Reviewed Date: 2024 00:00:00 ?? 9450-7694 The makeena. All rights reserved. This information is not [...] Plan Anticoagulation Plan Warfarin Pharmacist Managed?: No [facility] Warfarin Dosing Protocol Followed?: No [...] Ongoing, Progressing Intervention: Promote Activity and Functional [place] Flowsheets (Taken 06/18/202558) Activity Assistance Provided: assistance, 1 person Self-Care Promotion: independence encouraged Problem: Self-Care Deficit Goal: Improved Ability to Complete Activities of Daily Living Outcome: Ongoing, Progressing Intervention: Promote Activity and Functional [place] Flowsheets (Taken 06/18/202558) Activity Assistance Provided: assistance, [...] from the original note were not included. [id number] Warfarin IMPORTANT WARNING: Warfarin may cause severe [...] doctor or pharmacist will give you the media strategist's patient information sheet (Medication Guide) when you begin treatment with warfarin and each time you refill your prescription. Read the information carefully and ask your doctor or pharmacist if you have any questions. You can also visit the Food and Drug Administration (FDA) website (https://www.fda.gov/downloads/Drugs/DrugSafety/hzv084263.pdf) or the media strategist's website to obtain the Medication Guide. Talk [...] amounts of vitamin K-containing food on a ymbx-vj-znau basis. Do not eat large amounts of [...] be awakened, immediately call emergency services at 661. Symptoms of overdose may include the following: [...] of all of the prescription and nonprescription (pxck-lhn-shlaegt) medicines, vitamins, minerals, and dietary supplements you [...] or pharmacist about specific clinical use. The [place] [employer] represents that the information provided hereunder was formulated with a reasonable standard of care, and in conformity with professional standards in the field. The [place] [employer] makes no representations or warranties, express or implied, including, but not limited to, any implied warranty of merchantability and/or fitness for a particular purpose, with respect to such information and specifically disclaims all such warranties. Users are advised that decisions regarding drug therapy are complex medical decisions requiring the independent, informed decision of an appropriate health career placement specialist, and the information is provided for informational purposes only. The entire monograph for a drug should be reviewed for a thorough understanding of the drug's actions, uses and side effects. The [place] [employer] does not endorse or recommend the use of any drug.The information is not a substitute for medical care. AHFS?? Patient Medication Information?. ?? Copyright, 2023. The [place] [employer]System Pharmacists??, [address], [address], [place], [place]. All Rights Reserved. Duplication for commercial use must be authorized by [facility]. Selected Revisions: February 13, 2017. AHFS?? Patient Medication Information?. ?? Copyright, 2024 * Gabriel GonsalezALONZO - Sydni Munson RN - 06/17/2025 12:42 PM EDT Images from the original note were not included. 09406 Recovery From Heart Surgery: The First Few [...] stop Last Reviewed Date: 2024 00:00:00 ?? 6498-6992 The makeena. All rights reserved. This information is not [...] from the original note were not included. 60042 After Heart Valve Surgery For the first [...] headache Last Reviewed Date: 2023 00:00:00 ?? 8500-4794 The makeena. All rights reserved. This information is not intended as a substitute for professional medical care. Always follow your healthcare professional's instructions. * Discharge Instr - Other Orders - Sydni Munson RN - 06/17/2025 12:39 PM EDT Please arrive 30 minutes early for your appointment with Dr. Clark Prior to your appointment, go to the radiology department on the 1st floor of the [facility] near [facility] for a chest x-ray. Then [...] your incisions. Do NOT lift, push, or rack puller 5 pounds for six weeks. Do [...] Sydni Munson CT Surgery Nurse Navigator at [phone] Friday through Friday 7am- 3:30pm [facility] [phone] after 3:30 pm, weekends and holidays - ask for the CT surgeon shell mold bonder. * Progress Notes - Brooke Valdez PTA - 06/17/2025 11:58 AM EDT Physical Therapy Treatment Patient Name: Bradley Forrest Today's Date: 06/17/2025 Total Treatment Time: 39 min PT Discharge Recommendations: Home with assistance Equipment Recommended: Rollator Subjective The patient states, I am doing okay. Participants in Care Family/Caregiver Present: Yes Family/Caregiver: Spouse, Other (Specify) (sister and brother) Steam Tunnel Feeder: Not Applicable Presentation Oxygen: None (Room air) [...] sequencing. Bed Mobility Exam: Rolling/Turning Level of [place]: Minimum assist (75% patient effort) Physical/Nonphysical Assist: Verbal Cues, Set-up required Bed Mobility Exam: Scooting/Bridging Level of [place]: Minimum assist (75% patient's effort) (to scoot to edge of bed with cues to adhere to sternal precautions) Physical/Nonphysical Assist: Verbal Cues, Set-up required Bed Mobility Exam: Supine to Sit Level of [place]: Minimum assist (75% patient's effort) Physical/Nonphysical Assist: Verbal Cues, Set-up required, Additional assist utilized for safety Bed Mobility Exam: Sit to Supine Level of [place]: Minimum assist (75% patient's effort) Physical/Nonphysical Assist: Verbal Cues, Set-up required, Additional assist utilized for safety Transfers Transfer Intervention: Verbal cues provided for correct bilateral hand and foot placement during sit to stand transfers. Transfer Interventions: The patient stood at the sink for hygiene approximately 8-10 minutes with CGA of 1 person. 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 Level of [place] Adaptive Equipment Utilized Comments Feeding Grooming SBA Standing sinkside stood times 8 minutes in bathroom. Bathing Upper Body Dressing Lower Body Dressing Sock Level of Assistance: Moderate assistance, Minimal verbal cues Toileting SBA Toilet IADLs Health Management Community Re-Entry BALANCE Postural Appearance INTERVENTIONS Level of [place]wood Balance Support Comments Static Sit Standby assist [...] weight shifting to promote safety. Level of [place] Physical/Non-physical Assist Adaptive Equipment Utilized Rolling/ Turning [...] Plan Anticoagulation Plan Warfarin Pharmacist Managed?: No [facility] Warfarin Dosing Protocol Followed?: No Bridging Agent in Conjunction With Warfarin? : Yes Ordered Agents: Enoxaparin Bridging Agent Dose: 70mg BID INR Monitoring Frequency: Monitor INR daily Patient Education : Complete and documented Warfarin dosing and adjustment per CT surgery provider. Transitions of Care Outpatient provider managing warfarin after [facility] discharge: TBD - possibly clinic Recommended date for outpatient INR assessment: TBD - of note, enoxparin copay $0 for 7 day supply Will continue to follow patient's clinical progress daily. Maria Esther Kent PharmD, ARLEEN, BCCCP, [facility] Critical Care Pharmacist - Cardiothoracic Surgery Contact via secure chat * Maria Esther Houston PharmD - 06/17/2025 9:21 AM EDT Images from the original note were not included. Your Health Checklist: Taking Warfarin Safely - Video Follow this checklist to properly and safely take warfarin. To view the video go to this web address: https://[email or web address].VeliQ/[email or web address] Or, scan this QR code with your [...] the video go to this web address: https://[email or web address]/[email or web address] Or, scan this QR code with your smart phone ?? [facility] * Maria Esther Houston PharmD - 06/17/2025 9:21 AM EDT Images from the original note were not included. Warfarin: Your INR Goal - Video Understand what the INR test measures, and what your healthy INR level should be. To view the video go to this web address: https://[email or web address]/[email or web address] Or, scan this QR code with your [...] the video go to this web address: [email or web address] Or, scan this QR code with your [...] Certain other vegetables and fruits, including asparagus, [place] sprouts, and kiwifruit ? Certain soy products, such as natto (a traditional Faroese dish of fermented soybeans) Some vegetable oils [...] reduced-fat cheese, served with a whole grain Vincentian muffin ? A grilled chicken sandwich on whole grain bread with raw spinach*, tomato slices, and mustard ? Oven-roasted fish served with steamed broccoli* and medley of whole grain pasta, carrots, onions,and mushrooms * Foods higher in vitamin K Last Reviewed Date: 2025 00:00:00 ?? 3114-0602 The makeena. All rights reserved. This information is not [...] the video go to this web address: [email or web address]://[email or web address].VeliQ/[email or web address] Or, scan this QR code with your smart phone ?? [employer] [facility] * Maria Esther Houston PharmD - 06/17/2025 9:21 AM EDT Images from the original note were not included. [id number] Warfarin IMPORTANT WARNING: Warfarin may cause severe [...] doctor or pharmacist will give you the media strategist's patient information sheet (Medication Guide) when you begin treatment with warfarin and each time you refill your prescription. Read the information carefully and ask your doctor or pharmacist if you have any questions. You can also visit the Food and Drug Administration (FDA) website (https://www.fda.gov/downloads/Drugs/DrugSafety/cer433124.pdf) or the media strategist's website to obtain the Medication Guide. Talk [...] amounts of vitamin K-containing food on a lkac-kf-wkdo basis. Do not eat large amounts of [...] of all of the prescription and nonprescription (aqja-uls-hpqsrfd) medicines, vitamins, minerals, and dietary supplements you [...] or pharmacist about specific clinical use. The [place] [employer] represents that the information provided hereunder was formulated with a reasonable standard of care, and in conformity with professional standards in the field. The [place] [employer] makes no representations or warranties, express or implied, including, but not limited to, any implied warranty of merchantability and/or fitness for a particular purpose, with respect to such information and specifically disclaims all such warranties. Users are advised that decisions regarding drug therapy are complex medical decisions requiring the independent, informed decision of an appropriate health career placement specialist, and the information is provided for informational purposes only. The entire monograph for a drug should be reviewed for a thorough understanding of the drug's actions, uses and side effects. The [place] [employer] does not endorse or recommend the use of any drug.The information is not a substitute for medical care. AHFS?? Patient Medication Information?. ?? Copyright, 2023. The [place] [employer]System Pharmac[employer]??, [address], [address], [place], [place]. All Rights Reserved. Duplication for commercial use must be authorized by [facility]. Selected Revisions: February 13, 2017. AHFS?? [...] Ongoing, Progressing Intervention: Promote Activity and Functional [place] Flowsheets (Taken 06/17/2025108) Activity Assistance Provided: assistance, 1 person Self-Care Promotion: independence encouraged Problem: Self-Care Deficit Goal: Improved Ability to Complete Activities of Daily Living Outcome: Ongoing, Progressing Intervention: Promote Activity and Functional [place] Flowsheets (Taken 06/17/2025108) Activity Assistance Provided: assistance, [...] of Daily Living 06/16/2025 1526 by Fariba lBanton RN Outcome: Ongoing, Progressing 06/16/2025 152 by [...] Note Bradley Forrest 69 y.o. male CSN: [id number] Admission: 06/14/2025 5:18 AM Primary Problem: Severe [...] Weaning from mechanically assisted ventilation initiated (CMS/HCC) (Pdbjnjfn72/20/2025) Arrived intubated and sedated post-op - fast [...] post median sternotomy. Interval removal of the Canjilon-Ganzcatheter, right IJ sheath remains in place with tip in the mid to distal SVC. No pneumothorax or pleural effusions. Ongoing interstitial edema. 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 Steam Tunnel Feeder (if applicable) OBJECTIVE & INTERVENTIONS PAIN Pain [...] ACTIVITY Treatment Minutes 24 TRANSFERS Level of [place] Physical/Non- physical Assist Adaptive Equipment Utilized Sit to Stand Contact guard Verbal Cues, Additional assist utilized for safety, 1 person + 1 person to manage equipment (verbal cuing for sternal precautions) Stand to sit Contact guard Verbal Cues, 1 person + 1 person to manage equipment Interventions BALANCE Postural Appearance Posture: Rounded shoulders Level of [place] Balance Support Interventions Static Sit Standby assist Feet supported Dynamic Sit Contact guard Feet supported Static Stand Standby assist Right upper extremity support, Left upper extremity support Pt with mild dizziness when coming to stand from sitting which subsided with roughly 30 seconds of static standing Dynamic Stand Standby assist Right upper extremity support, Left upper extremity support AMBULATION Level of [place] Distance Adaptive Equipment Utilized Ambulation Standby assist, [...] Plan Anticoagulation Plan Warfarin Pharmacist Managed?: No [facility] Warfarin Dosing Protocol Followed?: No Reason for Protocol Departure: CT Surgery Bridging Agent in Conjunction With Warfarin? : Yes Ordered Agents: Enoxaparin Bridging Agent Dose: Enoxaparin 70mg bid to start 1016 pm INR Monitoring Frequency: Monitor INR daily Patient Education : Incomplete Warfarin dosing and adjustment per CT surgery provider. Transitions of Care Outpatient provider managing warfarin after [facility] discharge: TBD Recommended date for outpatient INR assessment: TBD Will continue to follow patient's clinical progress daily. Sy Fernández PharmD PGY-2 Cardiology Photographic Lithographer Available via Secure Chat * Progress Notes [...] Ongoing, Progressing Intervention: Promote Activity and Functional [place] Flowsheets Taken 06/15/20250 by Bony Thomas RN [...] Ongoing, Progressing Intervention: Promote Activity and Functional [place] Flowsheets Taken 06/15/20251699 by Bony Thomas RN Activity Assistance Provided: assistance, stand-by Taken 06/14/20252154 by Svetlana Reilly RN Self-Care Promotion: independence encouraged * Consults - Nat Singletary RD - 06/15/2025 2:23 PM EDTAssociated Order(s): IP CONSULT TO NUTRITION SERVICES Adult Nutrition Evaluation Note Bradley Forrest 69 y.o. male CSN: [id number] Room/Bed 234/234A Nutrition evaluation type: assessment Reason [...] Supplemental oxygen O2 Delivery Method: Nasal cannula [place] Coma Scale Score: 15 Keny Scale Score: 21 Shahid/Cubbin Pressure Risk Score: 38 Most Recent BM Date: (RN TRANSFER) GI Symptoms: Nausea, Vomiting Edema: Generalized Allergies: [...] 30.07 Weight Evaluation: Obese-Class 1 (BMI 30-34.9) [place] Body Weight (kg): 67.3 Percent [place] Body Weight: 130 Adjusted Body Weight (kg): 72.4 Estimated Needs: Kcal/ K-28 Kcal Provided: Metabolic Cart Study Results: Current Nutrition Intake: Diet Order: Adult Diet Diet Texture: Clear liquid Adult Carbohydrate Restriction: Consistent CHO 2 (4569-2176 Venkat, 80 g/meal) Fat Restriction: Cardiac Percent Meals Eaten (%): establishing Diet Experience and Nutrition History: Diet Education Provided: Will monitor Pertinent home medications: Cheondoism needs: Nutrition Focused Physical Exam: Physical exam performed on (date): 06/15 Temples (muscles): None Clavicle (muscle): None Shoulder (muscle): None Orbital (fat): None Triceps (fat): None Energy Intake: reported adequate RN TRANSFER Weight Loss: denies Assessment of Malnutrition: Malnutrition [...] Note Bradley Forrest 69 y.o. male CSN: [id number] Admission: 06/14/2025 5:18 AM Primary Problem: Severe aortic regurgitation Salon/Spa Manager reviewed chart and spoke with the patient at bedside to complete this Initial Case Management Assessment. PCP: Kamran Singh MD Emergency Contact: Extended Emergency Contact Information Primary Emergency Contact: Naheed Forrest Address: [address] [place] Relation: Spouse Insurance: Primary Visit Coverage Payer Plan Sponsor Code Group Number Group Name MARY HERNANDEZ [facility] [id number] Primary Visit Coverage Subscriber Subscriber ID Subscriber Name Subscriber [facility] Subscriber Address [id number] Forrest,Bradley [id number] [facility] [id number] Secondary Visit Coverage Payer Plan Sponsor Code Group Number Group Name MEDICARE MEDICARE A & B Secondary Visit Coverage Subscriber Subscriber ID Subscriber Name Subscriber [facility] Subscriber Address [id number] Jeet Forrestime [id number] [place] [address] [place] JITENDRA [id number] Patient information: Primary Caregiver: Self Support System: Immediate family Daily Living Activities: Functional Status: Independent Living Arrangements: Spouse/Significant other Type of Residence: Private residence, Single Level [address] [place] [address] Current DME: Equipment Currently Used at Home: [...] DME Provider: n/a Living Will/Advance Directive/Power of Globe Cleaner /Guardian: Unable to assess: No Have you [...] prior HH/O2/HD/Abx. PCP is Kamran Singh. Has [employer] insurance and uses [email or web address]. Family to transport and assist as [...] Plan Anticoagulation Plan Warfarin Pharmacist Managed?: No [facility] Warfarin Dosing Protocol Followed?: No Reason for Protocol Departure: CT Surgery Bridging Agent in Conjunction With Warfarin? : No INR Monitoring Frequency: Monitor INR daily Patient Education : Incomplete Warfarin dosing and adjustment per CT surgery provider. Transitions of Care Outpatient provider managing warfarin after [facility] discharge: TBD Recommended date for outpatient INR assessment: TBD Will continue to follow patient's clinical progress daily. Frank BrothersD PGY-2 Cardiology Photographic Lithographer Available via Secure Chat * Assessment & [...] Weaning from mechanically assisted ventilation initiated (CMS/HCC) (Hlpnzhnw41/20/2025) Arrived intubated and sedated post-op - fast [...] Weaning from mechanically assisted ventilation initiated (CMS/HCC) (Hdbwbzsn84/20/2025) Arrived intubated and sedated post-op - fast [...] 06/15/2025 Weaning from mechanically assisted ventilation initiated ([facility]) 06/14/2025 Diabetes 05/05/2025 Benign prostatic hyperplasia 05/05/2025 CAD (coronary artery disease) 04/14/2025 History of coronary angioplasty with insertion of stent 04/14/2025 Ascending aortic aneurysm ([facility]) 04/14/2025 Aortic valve regurgitation 04/14/2025 BMI [...] No 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) Level of Mobility: Ambulatory- community Mobility [place]: Independent gait without device History of Falls: [...] Mobility Exam: Sit to Supine Level of [place]: Maximum assist (25% patient's effort) Physical/Nonphysical Assist: Verbal Cues, Maximal cues, Additional assist utilized for safety Transfers Transfer Exam: Sit to stand Level of [place]: Moderate assist (50% patient's effort) Physical/Nonphysical Assist: Verbal Cues, Moderate cues, Additional assist utilized for safety Assistive Device: Rollator Transfer Exam: Stand to Sit Level of [place]: Minimum assist (75% patient's effort) Physical/Nonphysical Assist: [...] 3-5 steps with a railing?: A little [facility] 6-Clicks Mobility Assessment Total : 16 [...] 06/15/2025 Weaning from mechanically assisted ventilation initiated ([facility]) 06/14/2025 Diabetes 05/05/2025 Benign prostatic hyperplasia 05/05/2025 CAD (coronary artery disease) 04/14/2025 History of coronary angioplasty with insertion of stent 04/14/2025 Ascending aortic aneurysm ([facility]) 04/14/2025 Aortic valve regurgitation 04/14/2025 BMI [...] No 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) Level of Mobility: Ambulatory- community Mobility [place]: Independent gait without device History of Falls: [...] Mobility Exam: Sit to Supine Level of [place]: Maximum assist (25% patient's effort) Physical/Nonphysical Assist: Verbal Cues, Maximal cues, Additional assist utilized for safety Transfers Transfer Exam: Sit to stand Level of [place]: Moderate assist (50% patient's effort) Physical/Nonphysical Assist: Verbal Cues, Moderate cues, Additional assist utilized for safety Assistive Device: Rollator Transfer Exam: Stand to Sit Level of [place]: Minimum assist (75% patient's effort) Physical/Nonphysical Assist: [...] continued education to improve carryover. Standardized Assessments [facility] 6-Click Daily Activities Help from Other: Don/Doff Regular Lower Body Clothings: A lot Help From Other: Bathing: A lot Help From Other: Toileting: A lot Help From Other: Don/Doff Upper Body Clothings: Little Help From Other: Grooming: Little Help From Other: Eating Meals: None [facility] 6 Click - Daily Activities Score: 16 [...] Right 06/14/25 0832 Internal jugular 1 GCS: Stuyvesant Coma Scale Score: 15 Review of Systems [...] of NG tube. Right internal jugular approach Canjilon-Shira catheter and mediastinal drain in unchanged position. [...] Problem(s): Weaning from mechanically assisted ventilation initiated ([facility]) (Yfamyare02/20/2025) Arrived intubated and sedated post-op - fast [...] for an aortic root replacement with Dr. Clrak. Intraoperative course was uneventful. Airway was grade [...] for analgesia prior to leaving the OR. [facility] services were consulted for management [...] pressure support 04/05 Edited by: Balta Washington, CERTIFIED INDUSTRIAL HYGIENIST, DNP at 06/14/2025 2253 Lines/Drains/Tubes: Patient Lines/Drains/Airways [...] Ongoing, Progressing Intervention: Promote Activity and Functional [place] Flowsheets (Taken 06/14/20252154) Activity Assistance Provided: assistance, [...] Problem(s): Weaning from mechanically assisted ventilation initiated ([facility]) (Vyucoepe78/20/2025) Arrived intubated and sedated post-op - fast [...] for analgesia prior to leaving the OR. [facility] services were consulted for management [...] 06/14/25 1327 Mediastinal less than 1 NG/OG Roland Sump Orogastric 18 Fr Center mouth 06/14/25 [...] 2 tablets by mouth every morning. [place] law, monthly prescriptions (30 days) can be refilled at 25 days and three-month prescriptions (90 days) at 80 days. Please contact the insurance company with questions if refills are denied. (Patient taking differently: Take 2 tablets by mouth every 4 hours as needed. Under [place] law, monthly prescriptions (30 days) can be [...] Saint Jose mechanical prosthesis. Date: 06/14/25 Location: [facility] Name: Bradley Forrest, : 1955, Diagnoses: Pre-op Diagnosis Severe aortic regurgitation Post-op Diagnosis Severe aortic regurgitation Coronary artery disease due to calcified coronary lesion History of coronary angioplasty with insertion of stent Left ventricular enlargement Procedure(s): Median sternotomy, aortic valve replacement using a 25 mm Saint Jose mechanical prosthesis. Attending Surgeon(s): * Phillip Clark - Primary Long Haul Truck Driver(s): * Turner Pablo MD - Fellow Anesthesia: General ASA: IV Blood Administration: Blood Product Administration History None Estimated Blood Loss: 150 mL Drains: Chest Tube Mediastinal 36 Fr (Active) Function -20 cm H2O 06/14/25 1600 Chest Tube Air Leak No 06/14/25 1600 Patency Intervention Tip/tilt 06/14/25 1600 Drainage Description Dark red 06/14/25 1600 NG/OG Roland Sump Orogastric 18 Fr Center mouth (Active) Urethral Catheter Temperature probe 16 Fr. (Active) Implants Type Name Action Serial No. GRAFT PTCH [id number] FELT - [id number] Implanted VALVE ATRIAL 25MM ROTATABL CUF STD PTFE - [id number] - [id number] Implanted [id number] Specimen: Specimens ID Source Frozen? 1 Heart [...] stenting of his coronaries. In addition his cmm inspector, Jd Duvall, had done an echocardiogram which [...] was induced, monitoring lines were placed, a Canjilon-Shira catheter was floated into position and a [...] Prolene and a tack seal. One 36 Niuean chest tube was placed. Chest tubes and pacing wires were secured to the anterior abdominal wall. The sternum was reapproximated with #7 [id number] stainless steel wires, the fasciawas closed with [...] 2 tablets by mouth every morning. Under [place] law, monthly prescriptions (30 days) can be refilled at 25 days and three-month prescriptions (90 days) at 80 days. Please contact the insurance company with questions if refills are denied. Patient taking differently: Take 2 tablets by mouth every 4 hours as needed. Under [place] law, monthly prescriptions (30 days) can be [...] Description 07/07/2025 2:40 PM EST Office Visit [facility] [address], [facility] [address] [place] [address] Phillip Clark MD [address] [place] [address] Pending Results Name Type Priority Associated Diagnoses [...] PANEL, PLASMA Routine 06/16/2025 5:35 PM EDT [facility], E/M 30-74 MINUTES Routine 06/16/2025 [...] PEP THERAPY Routine 06/15/2025 12:00 PM EDT [facility], E/M 30-74 MINUTES Routine 06/15/2025 [...] 1 VIEW Routine 06/15/2025 2:53 AM EDT [facility], ADDL 30 MIN Routine 06/15/2025 12:21 AM EDT Other secondary hypertension [facility], ADDL 30 MIN Routine 06/15/2025 [...] PANEL, ARTERIAL Routine 06/14/2025 6:47 PM EDT [facility], E/M 30-74 MINUTES Routine 06/14/2025 [...] UNSOLICITED RESULTS Routine 06/14/2025 8:13 AM EDT [place] -AORT GRF W/CARD BYP F/AORTIC DISSECTION 06/14/2025 [...] - 99 mg/dL 06/20/2025 2:47 AM EDT [facility] BUN, Plasma 22 8 - 23 mg/dL 06/20/2025 2:47 AM EDT [facility] Creatinine, Plasma 0.85 0.70 - 1.20 mg/dL 06/20/2025 2:47 AM EDT [facility] BUN/Creatinine Ratio 26 06/20/2025 2:47 AM EDT [facility] Sodium, Plasma 131(L) 136 - 145 mmol/L 06/20/2025 2:47 AM EDT [facility] Potassium, Plasma 4.0 3.6 - 4.9 mmol/L 06/20/2025 2:47 AM EDT [facility] Chloride, Plasma 102 97 - 107 mmol/L 06/20/2025 2:47 AM EDT [facility] CO2, Plasma 24 22 - 29 mmol/L 06/20/2025 2:47 AM EDT [facility] Anion Gap 5(L) 6 - 16 mmol/L 06/20/2025 2:47 AM EDT [facility] Total Calcium, Plasma 7.9(L) 8.9 - 10.2 mg/dL 06/20/2025 2:47 AM EDT [facility] eGFRcr 94.1 mL/min/1.7 3m*2 06/20/2025 2:47 AM EDT [facility] Comment:Reported eGFRcr in m L/min/1.73m2 is based the CKD-EPI 2020 equation that does not use a race coefficient. Blood Venous blood specimen / Unknown Venipuncture / Unknown 06/20/2025 1:52 AM EDT 06/20/2025 1:59 AM EDT Phillip Clark MD LAB BLOOD ORDERABLES Final R esult Performing Organization Address City/[facility]/ZIP Co de Phone Number [facility] [address] [place] [address] * Phosphorus (06/20/2025 1:52 AM EDT) Phosphorus, Plasma 2.8 2.5 - 4.5 mg/dL 06/20/2025 2:23 AM EDT [facility] Blood Venous blood specimen / Unknown Venipuncture / Unknown 06/20/2025 1:52 AM EDT 06/20/2025 1:59 AM EDT Phillip Clark MD LAB BLOOD ORDERABLES Final R esult Performing Organization Address [facility] Co de Phone Number [facility] [address] [place] [address] * (ABNORMAL) Protime-INR (06/20/2025 1:52 AM EDT) Prothrombin Time 30.4(H) 12.0 - 14.3 sec LAB COAGULATION METHOD 06/20/2025 2:29 AM EDT [facility] INR 2.9(H) 0.9 - 1.1 LAB COAGULATION METHOD 06/20/2025 2:29 AM EDT [facility] Blood Venous blood specimen / Unknown Venipuncture / Unknown 06/20/2025 1:52 AM EDT 06/20/2025 1:59 AM EDT Narrative [facility] - 06/20/2025 2:29 AM EDT OPTIMAL INR RANGES FOR PATIENT ON ORAL ANTICOAGULANT THERAPY Prevention of venous thromboembolism INR 2.0 to 3.0 In patients with heart disease: Atrial fibrillation INR 2.0 to 3.0 Valvular heart disease INR 2.0 to 3.0 Tissue heart valves INR 2.0 to 3.0 Mechanical prosthetic valves INR 2.5 to 3.5 Prevention of recurrent SC INR 2.5 to 3.5 us Phillip Clark MD LAB BLOOD ORDERABLES Final R esult [facility] [address] [place] [address] * Magnesium (06/20/2025 1:52 AM EDT) Pathologist [facility] Magnesium, Plasma 2.2 1.9 - 2.4 mg/dL 06/20/2025 2:23 AM EDT [facility] Blood Venous blood specimen / Unknown Venipuncture / Unknown 06/20/2025 1:52 AM EDT 06/20/2025 1:59 AM EDT us Phillip Clark MD LAB BLOOD ORDERABLES Final R esult Performing Organization Address City/[facility]/ZIP Co de Phone Number [facility] [address] [place] [address] * (ABNORMAL) CBC (06/20/2025 1:52 AM EDT) [facility] WBC Count 6.95 3.70 - 10.30 10*3/uL LAB HEMATOLOGY METHOD 06/20/2025 2:07 AM EDT [facility] RBC Count 3.73(L) 4.60 - 6.10 10*6/uL LAB HEMATOLOGY METHOD 06/20/2025 2:07 AM EDT [facility] HGB 10.4(L) 13.7 - 17.5 g/dL LAB HEMATOLOGY METHOD 06/20/2025 2:07 AM EDT [facility] HCT 31.9(L) 40.0 - 51.0 % LAB HEMATOLOGY METHOD 06/20/2025 2:07 AM EDT [facility] Platelet Count 187 155 - 369 10*3/uL LAB HEMATOLOGY METHOD 06/20/2025 2:07 AM EDT [facility] MCV 86 79 - 98 fL LAB HEMATOLOGY METHOD 06/20/2025 2:07 AM EDT [facility] MCH 27.9 26.0 - 32.0 pg LAB HEMATOLOGY METHOD 06/20/2025 2:07 AM EDT [facility] MCHC 32.6 30.7 - 35.5 g/dL LAB HEMATOLOGY METHOD 06/20/2025 2:07 AM EDT [facility] RDW 14.8(H) 11.5 - 14.5 % LAB HEMATOLOGY METHOD 06/20/2025 2:07 AM EDT [facility] MPV 10.2 8.8 - 12.5 fL LAB HEMATOLOGY METHOD 06/20/2025 2:07 AM EDT [facility] nRBC 0.0 <=0.0 per 100 WBCs LAB HEMATOLOGY METHOD 06/20/2025 2:07 AM EDT [facility] Blood Venous blood specimen / Unknown Venipuncture / Unknown 06/20/2025 1:52 AM EDT 06/20/2025 1:59 AM EDT us Phillip Clark MD LAB BLOOD ORDERABLES Final R esult [facility] [address] [place] [address] * PERIPHERAL IV (SMARTFORM LINK) (06/20/2025 1:47 [...] ECG Atrial Rate 85 BPM MUSE ECG WA Interval 176 ms MUSE ECG QRSD Interval 110 ms MUSE ECG QT Interval 402 ms MUSE ECG QTC Interval 478 ms MUSE ECG P [place] 43 degrees MUSE ECG R [place] -30 degrees MUSE ECG T Wave [place] 36 degrees MUSE ECG Diagnosis Poor data quality, interpretation may be adversely affected MUSE ECG Diagnosis Sinus rhythm with premature supraventricular complexes and with occasional premature ventricular complexes MUSE ECG Diagnosis Left axis deviation MUSE ECG Diagnosis Poor R-wave progression MUSE ECG Diagnosis Abnormal ECG MUSE ECG Diagnosis Recommend repeat ECG MUSE ECG Diagnosis MUSE ECG Diagnosis Confirmed by Aman Coe ([id number]) on 06/19/2025 1:33:10 PM MUSE ECG 06/19/2025 12:4 9 PM EDT 06/19/2025 1:33 PM EDT us Barbara MARIE ECG ORDERABLES Final Resul t MUSE ECG * (ABNORMAL) Basic metabolic panel (06/19/2025 2:38 AM EDT) Glucose, Plasma 102(H) 74 - 99 mg/dL 06/19/2025 4:10 AM EDT [facility] BUN, Plasma 25(H) 8 - 23 mg/dL 06/19/2025 4:10 AM EDT [facility] Creatinine, Plasma 1.02 0.70 - 1.20 mg/dL 06/19/2025 4:10 AM EDT [facility] BUN/Creatinine Ratio 25 06/19/2025 4:10 AM EDT [facility] Sodium, Plasma 134(L) 136 - 145 mmol/L 06/19/2025 4:10 AM EDT [facility] Potassium, Plasma 4.6 3.6 - 4.9 mmol/L 06/19/2025 4:10 AM EDT [facility] Comment:Hemolyzed - Potassiu m may be falsely elevated by approximately 0.4-0.7 mmol/L. Chloride, Plasma 102 97 - 107 mmol/L 06/19/2025 4:10 AM EDT [facility] CO2, Plasma 23 22 - 29 mmol/L 06/19/2025 4:10 AM EDT [facility] Anion Gap 9 6 - 16 mmol/L 06/19/2025 4:10 AM EDT [facility] Total Calcium, Plasma 8.4(L) 8.9 - 10.2 mg/dL 06/19/2025 4:10 AM EDT [facility] eGFRcr 79.6 mL/min/1.7 3m*2 06/19/2025 4:10 AM EDT [facility] Comment:Reported eGFRcr in m L/min/1.73m2 is based the CKD-EPI 2020 equation that does not use a race coefficient. Blood Venous blood specimen / Unknown Venipuncture / Unknown 06/19/2025 2:38 AM EDT 06/19/2025 2:54 AM EDT Phillip Clark MD LAB BLOOD ORDERABLES Final R esult Performing Organization Address City/[facility]/ZIP Co de Phone Number [facility] [address] [place] [address] * Phosphorus (06/19/2025 2:38 AM EDT) Phosphorus, Plasma 3.6 2.5 - 4.5 mg/dL 06/19/2025 4:10 AM EDT [facility] Blood Venous blood specimen / Unknown Venipuncture / Unknown 06/19/2025 2:38 AM EDT 06/19/2025 2:54 AM EDT us Phillip Clark MD LAB BLOOD ORDERABLES Final R esult Performing Organization Address City/[facility]/ZIP Co de Phone Number [facility] [address] [place] [address] * (ABNORMAL) Protime-INR (06/19/2025 2:38 AM EDT) Prothrombin Time 26.3(H) 12.0 - 14.3 sec LAB COAGULATION METHOD 06/19/2025 3:09 AM EDT [facility] INR 2.4(H) 0.9 - 1.1 LAB COAGULATION METHOD 06/19/2025 3:09 AM EDT [facility] Blood Venous blood specimen / Unknown Venipuncture / Unknown 06/19/2025 2:38 AM EDT 06/19/2025 2:54 AM EDT Narrative [facility] - 06/19/2025 3:09 AM EDT OPTIMAL INR RANGES FOR PATIENT ON ORAL ANTICOAGULANT THERAPY Prevention of venous thromboembolism INR 2.0 to 3.0 In patients with heart disease: Atrial fibrillation INR 2.0 to 3.0 Valvular heart disease INR 2.0 to 3.0 Tissue heart valves INR 2.0 to 3.0 Mechanical prosthetic valves INR 2.5 to 3.5 Prevention of recurrent SC INR 2.5 to 3.5 Phillip Clark MD LAB BLOOD ORDERABLES Final R esult Performing Organization Address City/[facility]/ZIP Co de Phone Number [facility] [address] [place] [address] * Magnesium (06/19/2025 2:38 AM EDT) Pathologist [facility] Magnesium, Plasma 2.4 1.9 - 2.4 mg/dL 06/19/2025 4:10 AM EDT [facility] Blood Venous blood specimen / Unknown Venipuncture / Unknown 06/19/2025 2:38 AM EDT 06/19/2025 2:54 AM EDT Phillip Clark MD LAB BLOOD ORDERABLES Final R esult Performing Organization Address City/[facility] Co de Phone Number [facility] [address] [place] [address] * (ABNORMAL) CBC (06/19/2025 2:38 AM EDT) WBC Count 6.94 3.70 - 10.30 10*3/uL LAB HEMATOLOGY METHOD 06/19/2025 3:17 AM EDT [facility] RBC Count 4.12(L) 4.60 - 6.10 10*6/uL LAB HEMATOLOGY METHOD 06/19/2025 3:17 AM EDT [facility] HGB 11.5(L) 13.7 - 17.5 g/dL LAB HEMATOLOGY METHOD 06/19/2025 3:17 AM EDT [facility] HCT 35.7(L) 40.0 - 51.0 % LAB HEMATOLOGY METHOD 06/19/2025 3:17 AM EDT [facility] Platelet Count 165 155 - 369 10*3/uL LAB HEMATOLOGY METHOD 06/19/2025 3:17 AM EDT [facility] MCV 87 79 - 98 fL LAB HEMATOLOGY METHOD 06/19/2025 3:17 AM EDT [facility] MCH 27.9 26.0 - 32.0 pg LAB HEMATOLOGY METHOD 06/19/2025 3:17 AM EDT [facility] MCHC 32.2 30.7 - 35.5 g/dL LAB HEMATOLOGY METHOD 06/19/2025 3:17 AM EDT [facility] RDW 14.8(H) 11.5 - 14.5 % LAB HEMATOLOGY METHOD 06/19/2025 3:17 AM EDT [facility] MPV 10.6 8.8 - 12.5 fL LAB HEMATOLOGY METHOD 06/19/2025 3:17 AM EDT [facility] nRBC 0.0 <=0.0 per 100 WBCs LAB HEMATOLOGY METHOD 06/19/2025 3:17 AM EDT [facility] Blood Venous blood specimen / Unknown Venipuncture / Unknown 06/19/2025 2:38 AM EDT 06/19/2025 2:54 AM EDT us Phillip Clark MD LAB BLOOD ORDERABLES Final R esult [facility] [address] [place] [address] * XR Chest 1 View (06/19/2025 1:50 [...] COMMUNICATION: Per this written report Drafted by aKmran Arellano MD on 06/18/2025 8:12 AM Final report signed by Kamran Arellano MD on 06/18/2025 8:13 AM us Phillip Clark MD IMG XR PROCEDURES Final Resu lt * (ABNORMAL) Basic metabolic panel (06/18/2025 1:43 AM EDT) Glucose, Plasma 93 74 - 99 mg/dL 06/18/2025 2:17 AM EDT [facility] BUN, Plasma 18 8 - 23 mg/dL 06/18/2025 2:17 AM EDT [facility] Creatinine, Plasma 0.82 0.70 - 1.20 mg/dL 06/18/2025 2:17 AM EDT [facility] BUN/Creatinine Ratio 22 06/18/2025 2:17 AM EDT [facility] Sodium, Plasma 134(L) 136 - 145 mmol/L 06/18/2025 2:17 AM EDT [facility] Potassium, Plasma 3.7 3.6 - 4.9 mmol/L 06/18/2025 2:17 AM EDT [facility] Chloride, Plasma 100 97 - 107 mmol/L 06/18/2025 2:17 AM EDT [facility] CO2, Plasma 26 22 - 29 mmol/L 06/18/2025 2:17 AM EDT [facility] Anion Gap 8 6 - 16 mmol/L 06/18/2025 2:17 AM EDT [facility] Total Calcium, Plasma 8.1(L) 8.9 - 10.2 mg/dL 06/18/2025 2:17 AM EDT [facility] eGFRcr 95.1 mL/min/1.7 3m*2 06/18/2025 2:17 AM EDT [facility] Comment:Reported eGFRcr in m L/min/1.73m2 is based the CKD-EPI 2020 equation that does not use a race coefficient. Blood Blood sample taken from central line / Unknown Venipuncture / Unknown 06/18/2025 1:43 AM EDT 06/18/2025 1:48 AM EDT Phillip Clark MD LAB BLOOD ORDERABLES Final R esult Performing Organization Address City/State/[facility] Co de Phone Number [facility] [address] [place] [address] * Phosphorus (06/18/2025 1:43 AM EDT) Phosphorus, Plasma 2.6 2.5 - 4.5 mg/dL 06/18/2025 2:17 AM EDT [facility] Blood Blood sample taken from central line / Unknown Venipuncture / Unknown 06/18/2025 1:43 AM EDT 06/18/2025 1:48 AM EDT Phillip Clark MD LAB BLOOD ORDERABLES Final R esult Performing Organization Address [facility] Co de Phone Number [facility] [address] [place] [address] * (ABNORMAL) Protime-INR (06/18/2025 1:43 AM EDT) Prothrombin Time 25.2(H) 12.0 - 14.3 sec LAB COAGULATION METHOD 06/18/2025 2:07 AM EDT [facility] INR 2.3(H) 0.9 - 1.1 LAB COAGULATION METHOD 06/18/2025 2:07 AM EDT [facility] Blood Blood sample taken from central line / Unknown Venipuncture / Unknown 06/18/2025 1:43 AM EDT 06/18/2025 1:48 AM EDT Narrative [facility] - 06/18/2025 2:07 AM EDT OPTIMAL INR RANGES FOR PATIENT ON ORAL ANTICOAGULANT THERAPY Prevention of venous thromboembolism INR 2.0 to 3.0 In patients with heart disease: Atrial fibrillation INR 2.0 to 3.0 Valvular heart disease INR 2.0 to 3.0 Tissue heart valves INR 2.0 to 3.0 Mechanical prosthetic valves INR 2.5 to 3.5 Prevention of recurrent SC INR 2.5 to 3.5 us Phillip Clark MD LAB BLOOD ORDERABLES Final R esult Performing Organization Address [facility] Co de Phone Number [facility] [address] [place] [address] * Magnesium (06/18/2025 1:43 AM EDT) Magnesium, Plasma 2.3 1.9 - 2.4 mg/dL 06/18/2025 2:17 AM EDT [facility] Blood Blood sample taken from central line / Unknown Venipuncture / Unknown 06/18/2025 1:43 AM EDT 06/18/2025 1:48 AM EDT us Phillip Clark MD LAB BLOOD ORDERABLES Final R esult [facility] [address] [place] [address] * (ABNORMAL) CBC (06/18/2025 1:43 AM EDT) Pathologist [facility] WBC Count 8.51 3.70 - 10.30 10*3/uL LAB HEMATOLOGY METHOD 06/18/2025 1:54 AM EDT [facility] RBC Count 3.67(L) 4.60 - 6.10 10*6/uL LAB HEMATOLOGY METHOD 06/18/2025 1:54 AM EDT [facility] HGB 10.6(L) 13.7 - 17.5 g/dL LAB HEMATOLOGY METHOD 06/18/2025 1:54 AM EDT [facility] HCT 31.2(L) 40.0 - 51.0 % LAB HEMATOLOGY METHOD 06/18/2025 1:54 AM EDT [facility] Platelet Count 121(L) 155 - 369 10*3/uL LAB HEMATOLOGY METHOD 06/18/2025 1:54 AM EDT [facility] MCV 85 79 - 98 fL LAB HEMATOLOGY METHOD 06/18/2025 1:54 AM EDT [facility] MCH 28.9 26.0 - 32.0 pg LAB HEMATOLOGY METHOD 06/18/2025 1:54 AM EDT [facility] MCHC 34.0 30.7 - 35.5 g/dL LAB HEMATOLOGY METHOD 06/18/2025 1:54 AM EDT [facility] RDW 14.7(H) 11.5 - 14.5 % LAB HEMATOLOGY METHOD 06/18/2025 1:54 AM EDT [facility] MPV 10.4 8.8 - 12.5 fL LAB HEMATOLOGY METHOD 06/18/2025 1:54 AM EDT [facility] nRBC 0.0 <=0.0 per 100 WBCs LAB HEMATOLOGY METHOD 06/18/2025 1:54 AM EDT [facility] Blood Blood sample taken from central line / Unknown Venipuncture / Unknown 06/18/2025 1:43 AM EDT 06/18/2025 1:48 AM EDT us Phillip Clark MD LAB BLOOD ORDERABLES Final R esult [facility] [address] [place] [address] * XR Chest 1 View (06/17/2025 3:14 [...] - 99 mg/dL 06/17/2025 12:54 AM EDT [facility] BUN, Plasma 15 8 - 23 mg/dL 06/17/2025 12:54 AM EDT [facility] Creatinine, Plasma 0.81 0.70 - 1.20 mg/dL 06/17/2025 12:54 AM EDT [facility] BUN/Creatinine Ratio 19 06/17/2025 12:54 AM EDT [facility] Sodium, Plasma 133(L) 136 - 145 mmol/L 06/17/2025 12:54 AM EDT [facility] Potassium, Plasma 3.9 3.6 - 4.9 mmol/L 06/17/2025 12:54 AM EDT [facility] Chloride, Plasma 98 97 - 107 mmol/L 06/17/2025 12:54 AM EDT [facility] CO2, Plasma 25 22 - 29 mmol/L 06/17/2025 12:54 AM EDT [facility] Anion Gap 10 6 - 16 mmol/L 06/17/2025 12:54 AM EDT [facility] Total Calcium, Plasma 8.1(L) 8.9 - 10.2 mg/dL 06/17/2025 12:54 AM EDT [facility] eGFRcr 95.4 mL/min/1.7 3m*2 06/17/2025 12:54 AM EDT [facility] Comment:Reported eGFRcr in m L/min/1.73m2 is based the CKD-EPI 2020 equation that does not use a race coefficient. Blood Blood sample taken from central line / Unknown Venipuncture / Unknown 06/17/2025 12:17 AM EDT 06/17/2025 12:24 AM EDT Phillip Clark MD LAB BLOOD ORDERABLES Final R esult Performing Organization Address City/[facility] Co de Phone Number [facility] [address] [place] [address] * Phosphorus (06/17/2025 12:17 AM EDT) Phosphorus, Plasma 2.9 2.5 - 4.5 mg/dL 06/17/2025 12:54 AM EDT [facility] Blood Blood sample taken from central line / Unknown Venipuncture / Unknown 06/17/2025 12:17 AM EDT 06/17/2025 12:24 AM EDT Phillip Clark MD LAB BLOOD ORDERABLES Final R esult Performing Organization Address City/[facility] de Phone Number [facility] [address] [place] [address] * (ABNORMAL) Protime-INR (06/17/2025 12:17 AM EDT) Prothrombin Time 18.7(H) 12.0 - 14.3 sec LAB COAGULATION METHOD 06/17/2025 1:16 AM EDT [facility] INR 1.5(H) 0.9 - 1.1 LAB COAGULATION METHOD 06/17/2025 1:16 AM EDT [facility] Blood Blood sample taken from central line / Unknown Venipuncture / Unknown 06/17/2025 12:17 AM EDT 06/17/2025 12:24 AM EDT Narrative [facility] - 06/17/2025 1:16 AM EDT OPTIMAL INR RANGES FOR PATIENT ON ORAL ANTICOAGULANT THERAPY Prevention of venous thromboembolism INR 2.0 to 3.0 In patients with heart disease: Atrial fibrillation INR 2.0 to 3.0 Valvular heart disease INR 2.0 to 3.0 Tissue heart valves INR 2.0 to 3.0 Mechanical prosthetic valves INR 2.5 to 3.5 Prevention of recurrent SC INR 2.5 to 3.5 Phillip Clark MD LAB BLOOD ORDERABLES Final R esult Performing Organization Address City/[facility]/ZIP Co de Phone Number [facility] [address] [place] [address] * Magnesium (06/17/2025 12:17 AM EDT) [facility] Magnesium, Plasma 2.3 1.9 - 2.4 mg/dL 06/17/2025 12:54 AM EDT [facility] Blood Blood sample taken from central line / Unknown Venipuncture / Unknown 06/17/2025 12:17 AM EDT 06/17/2025 12:24 AM EDT us Phillip Clark MD LAB BLOOD ORDERABLES Final R esult Performing Organization Address City/[facility] Co de Phone Number [facility] [address] [place] [address] * (ABNORMAL) CBC (06/17/2025 12:17 AM EDT) [facility] WBC Count 10.83(H) 3.70 - 10.30 10*3/uL LAB HEMATOLOGY METHOD 06/17/2025 12:32 AM EDT [facility] RBC Count 4.08(L) 4.60 - 6.10 10*6/uL LAB HEMATOLOGY METHOD 06/17/2025 12:32 AM EDT [facility] HGB 11.3(L) 13.7 - 17.5 g/dL LAB HEMATOLOGY METHOD 06/17/2025 12:32 AM EDT [facility] HCT 35.0(L) 40.0 - 51.0 % LAB HEMATOLOGY METHOD 06/17/2025 12:32 AM EDT [facility] Platelet Count 116(L) 155 - 369 10*3/uL LAB HEMATOLOGY METHOD 06/17/2025 12:32 AM EDT [facility] MCV 86 79 - 98 fL LAB HEMATOLOGY METHOD 06/17/2025 12:32 AM EDT [facility] MCH 27.7 26.0 - 32.0 pg LAB HEMATOLOGY METHOD 06/17/2025 12:32 AM EDT [facility] MCHC 32.3 30.7 - 35.5 g/dL LAB HEMATOLOGY METHOD 06/17/2025 12:32 AM EDT [facility] RDW 15.1(H) 11.5 - 14.5 % LAB HEMATOLOGY METHOD 06/17/2025 12:32 AM EDT [facility] MPV 10.3 8.8 - 12.5 fL LAB HEMATOLOGY METHOD 06/17/2025 12:32 AM EDT [facility] nRBC 0.0 <=0.0 per 100 WBCs LAB HEMATOLOGY METHOD 06/17/2025 12:32 AM EDT [facility] Blood Blood sample taken from central line / Unknown Venipuncture / Unknown 06/17/2025 12:17 AM EDT 06/17/2025 12:24 AM EDT us Phillip Clark MD LAB BLOOD ORDERABLES Final R esult Performing Organization Address City/[facility]/ZIP Co de Phone Number [facility] [address] [place] [address] * Magnesium (06/16/2025 5:35 PM EDT) Magnesium, Plasma 2.2 1.9 - 2.4 mg/dL 06/16/2025 7:41 PM EDT [facility] Blood Venous blood specimen / Unknown Venipuncture / Unknown 06/16/2025 5:35 PM EDT 06/16/2025 7:12 PM EDT us Phillip Clark MD LAB BLOOD ORDERABLES Final R esult [facility] [address] [place] [address] * (ABNORMAL) Renal function panel (06/16/2025 5:35 PM EDT) Glucose, Plasma 89 74 - 99 mg/dL 06/16/2025 7:41 PM EDT [facility] BUN, Plasma 15 8 - 23 mg/dL 06/16/2025 7:41 PM EDT [facility] Creatinine, Plasma 0.79 0.70 - 1.20 mg/dL 06/16/2025 7:41 PM EDT [facility] BUN/Creatinine Ratio 19 06/16/2025 7:41 PM EDT [facility] Sodium, Plasma 134(L) 136 - 145 mmol/L 06/16/2025 7:41 PM EDT [facility] Potassium, Plasma 3.8 3.6 - 4.9 mmol/L 06/16/2025 7:41 PM EDT [facility] Chloride, Plasma 98 97 - 107 mmol/L 06/16/2025 7:41 PM EDT [facility] CO2, Plasma 25 22 - 29 mmol/L 06/16/2025 7:41 PM EDT [facility] Anion Gap 11 6 - 16 mmol/L 06/16/2025 7:41 PM EDT [facility] Total Calcium, Plasma 8.4(L) 8.9 - 10.2 mg/dL 06/16/2025 7:41 PM EDT [facility] Phosphorus, Plasma 2.2(L) 2.5 - 4.5 mg/dL 06/16/2025 7:41 PM EDT [facility] Albumin, Plasma 3.4(L) 3.5 - 5.2 g/dL 06/16/2025 7:41 PM EDT [facility] eGFRcr 96.2 mL/min/1.7 3m*2 06/16/2025 7:41 PM EDT [facility] Comment:Reported eGFRcr in m L/min/1.73m2 is based the CKD-EPI 2020 equation that does not use a race coefficient. Blood Venous blood specimen / Unknown Venipuncture / Unknown 06/16/2025 5:35 PM EDT 06/16/2025 7:12 PM EDT us Phillip Clark MD LAB BLOOD ORDERABLES Final R esult [facility] [address] [place] [address] * [place] [facility], E/M 30-74 MINUTES (06/16/2025 9:58 [...] Comment 06/16/2025 8:45 AM EDT [facility] Associate Doctor ID Fariba Blanton 025 8:45 AM EDT [facility] Device ID [id number] 06/16/2025 8:45 AM EDT [facility] Specimen Type POC Arterial 06/16/2025 8:45 AM EDT [facility] Blood Arterial blood specimen / Unknown 06/16/2025 8:40 AM EDT 06/16/2025 8:45 AM EDT us Phillip Clark MD LAB POINT OF CARE TE ST DOCKED DEVICE UNSOLICITED RESULTS Final Result [facility] [address] [place] [address] * (ABNORMAL) Basic metabolic panel (06/16/2025 5:58 AM EDT) Glucose, Plasma 124(H) 74 - 99 mg/dL 06/16/2025 6:35 AM EDT [facility] BUN, Plasma 16 8 - 23 mg/dL 06/16/2025 6:35 AM EDT [facility] Creatinine, Plasma 0.83 0.70 - 1.20 mg/dL 06/16/2025 6:35 AM EDT [facility] BUN/Creatinine Ratio 19 06/16/2025 6:35 AM EDT [facility] Sodium, Plasma 132(L) 136 - 145 mmol/L 06/16/2025 6:35 AM EDT [facility] Potassium, Plasma 3.8 3.6 - 4.9 mmol/L 06/16/2025 6:35 AM EDT [facility] Chloride, Plasma 100 97 - 107 mmol/L 06/16/2025 6:35 AM EDT [facility] CO2, Plasma 25 22 - 29 mmol/L 06/16/2025 6:35 AM EDT [facility] Anion Gap 7 6 - 16 mmol/L 06/16/2025 6:35 AM EDT [facility] Total Calcium, Plasma 8.4(L) 8.9 - 10.2 mg/dL 06/16/2025 6:35 AM EDT [facility] eGFRcr 94.7 mL/min/1.7 3m*2 06/16/2025 6:35 AM EDT [facility] Comment:Reported eGFRcr in m L/min/1.73m2 is based the CKD-EPI 2020 equation that does not use a race coefficient. Blood Arterial blood specimen / Unknown Venipuncture / Unknown 06/16/2025 5:58 AM EDT 06/16/2025 6:05 AM EDT us Phillip Clark MD LAB BLOOD ORDERABLES Final R esult [facility] [address] [place] [address] * XR Chest 1 View (06/16/2025 5:14 AM EDT) Anatomical Region Laterality Modality Chest Digital Radiogra phy Impressions 06/16/2025 8:15 AM EDT Interval removal of the Canjilon-Shira catheter, the right IJ sheath remains in [...] post median sternotomy. Interval removal of the Canjilon-Shira catheter, right IJ sheath remains in place with tip in the mid to distal SVC. No pneumothorax or pleural effusions. Ongoing interstitial edema. Procedure Note Mona Smith MD - 06/16/2025 CLINICAL INDICATION: Post-Op Cardiac Surgery TECHNIQUE: XR CHEST 1 VIEW COMPARISON: Chest radiograph 06/15/2025 FINDINGS: Enlarged cardiac silhouette stable status post median sternotomy. Intervalremoval of the Canjilon-Shira catheter, right IJ sheath remains in place withtip in the mid to distal SVC. No pneumothorax or pleural effusions. Ongoing interstitial edema. IMPRESSION: Interval removal of the Canjilon-Shira catheter, the right IJ sheath remainsin place [...] - 4.5 mg/dL 06/16/2025 1:12 AM EDT [facility] Blood Arterial blood specimen / Unknown Venipuncture / Unknown 06/16/2025 12:36 AM EDT 06/16/2025 12:48 AM EDT Phillip Clark MD LAB BLOOD ORDERABLES Final R esult Performing Organization Address City/[facility]/ZIP Co de Phone Number [facility] [address] [place] [address] * (ABNORMAL) Protime-INR (06/16/2025 12:36 AM EDT) Prothrombin Time 18.0(H) 12.0 - 14.3 sec LAB COAGULATION METHOD 06/16/2025 1:06 AM EDT [facility] INR 1.5(H) 0.9 - 1.1 LAB COAGULATION METHOD 06/16/2025 1:06 AM EDT [facility] Blood Arterial blood specimen / Unknown Venipuncture / Unknown 06/16/2025 12:36 AM EDT 06/16/2025 12:48 AM EDT Narrative [facility] - 06/16/2025 1:06 AM EDT OPTIMAL INR RANGES FOR PATIENT ON ORAL ANTICOAGULANT THERAPY Prevention of venous thromboembolism INR 2.0 to 3.0 In patients with heart disease: Atrial fibrillation INR 2.0 to 3.0 Valvular heart disease INR 2.0 to 3.0 Tissue heart valves INR 2.0 to 3.0 Mechanical prosthetic valves INR 2.5 to 3.5 Prevention of recurrent SC INR 2.5 to 3.5 us Phillip Clark MD LAB BLOOD ORDERABLES Final R esult [facility] [address] [place] [address] * (ABNORMAL) Magnesium (06/16/2025 12:36 AM EDT) Magnesium, Plasma 2.5(H) 1.9 - 2.4 mg/dL 06/16/2025 1:12 AM EDT [facility] Blood Arterial blood specimen / Unknown Venipuncture / Unknown 06/16/2025 12:36 AM EDT 06/16/2025 12:48 AM EDT us Phillip Clark MD LAB BLOOD ORDERABLES Final R esult [facility] [address] [place] [address] * (ABNORMAL) CBC (06/16/2025 12:36 AM EDT) WBC Count 13.67(H) 3.70 - 10.30 10*3/uL LAB HEMATOLOGY METHOD 06/16/2025 1:01 AM EDT [facility] RBC Count 4.36(L) 4.60 - 6.10 10*6/uL LAB HEMATOLOGY METHOD 06/16/2025 1:01 AM EDT [facility] HGB 12.3(L) 13.7 - 17.5 g/dL LAB HEMATOLOGY METHOD 06/16/2025 1:01 AM EDT [facility] HCT 37.1(L) 40.0 - 51.0 % LAB HEMATOLOGY METHOD 06/16/2025 1:01 AM EDT [facility] Platelet Count 106(L) 155 - 369 10*3/uL LAB HEMATOLOGY METHOD 06/16/2025 1:01 AM EDT [facility] MCV 85 79 - 98 fL LAB HEMATOLOGY METHOD 06/16/2025 1:01 AM EDT [facility] MCH 28.2 26.0 - 32.0 pg LAB HEMATOLOGY METHOD 06/16/2025 1:01 AM EDT [facility] MCHC 33.2 30.7 - 35.5 g/dL LAB HEMATOLOGY METHOD 06/16/2025 1:01 AM EDT [facility] RDW 15.4(H) 11.5 - 14.5 % LAB HEMATOLOGY METHOD 06/16/2025 1:01 AM EDT [facility] MPV 10.8 8.8 - 12.5 fL LAB HEMATOLOGY METHOD 06/16/2025 1:01 AM EDT [facility] nRBC 0.0 <=0.0 per 100 WBCs LAB HEMATOLOGY METHOD 06/16/2025 1:01 AM EDT [facility] Blood Arterial blood specimen / Unknown Venipuncture / Unknown 06/16/2025 12:36 AM EDT 06/16/2025 12:48 AM EDT us Phillip Clark MD LAB BLOOD ORDERABLES Final R esult [facility] [address] [place] [address] * (ABNORMAL) Blood gas, arterial (06/16/2025 12:36 AM EDT) pH, Arterial 7.43(H) 7.31 - 7.42 LAB HEMATOLOGY METHOD 06/16/2025 12:58 AM EDT [facility] pCO2, Arterial 41 32 - 45 mmHg LAB HEMATOLOGY METHOD 06/16/2025 12:58 AM EDT [facility] pO2, Arterial 65(L) >80 mmHg LAB HEMATOLOGY METHOD 06/16/2025 12:58 AM EDT [facility] SO2, Measured, Arterial 94 94 - 98 % LAB HEMATOLOGY METHOD 06/16/2025 12:58 AM EDT [facility] Base Excess, Arterial 2.5 -2.0 - 3.0 mmol/L LAB HEMATOLOGY METHOD 06/16/2025 12:58 AM EDT [facility] Bicarbonate, Calculated, Arterial 27(H) 22 - 26 mmol/L LAB HEMATOLOGY METHOD 06/16/2025 12:58 AM EDT [facility] Hematocrit, Whole Blood 37.9(L) 40.0 - 51.0 % LAB HEMATOLOGY METHOD 06/16/2025 12:58 AM EDT [facility] Sodium, Whole Blood 133(L) 136 - 145 mmol/L LAB HEMATOLOGY METHOD 06/16/2025 12:58 AM EDT [facility] Potassium, Whole Blood 3.4(L) 3.6 - 4.9 mmol/L LAB HEMATOLOGY METHOD 06/16/2025 12:58 AM EDT [facility] Chloride, Whole Blood 100 97 - 107 mmol/L LAB HEMATOLOGY METHOD 06/16/2025 12:58 AM EDT [facility] Glucose, Whole Blood 124(H) 74 - 99 mg/dL LAB HEMATOLOGY METHOD 06/16/2025 12:58 AM EDT [facility] Ionized Calcium, Whole Blood 4.3(L) 4.6 - 5.1 mg/dL LAB HEMATOLOGY METHOD 06/16/2025 12:58 AM EDT [facility] Lactate, Arterial, Whole Blood 1.0 0.5 - 1.6 mmol/L LAB HEMATOLOGY METHOD 06/16/2025 12:58 AM EDT [facility] Blood Arterial blood specimen / Unknown Arterial Puncture / Unknown 06/16/2025 12:36 AM EDT 06/16/2025 12:55 AM EDT us Phillip Clark MD LAB BLOOD ORDERABLES Final R esult Performing Organization Address City/[facility] Co de Phone Number [facility] [address] [place] [address] * (ABNORMAL) POCT glucose meter (06/15/2025 8:00 [...] 06/15/2025 8:01 PM EDT [facility] Associate Doctor ID Svetlana Reilly 8:01 PM EDT [facility] Device ID [id number] 06/15/2025 8:01 PM EDT [facility]ALTH[facility] Specimen Type POC Capillary 06/15/2025 8:[address] [facility] Blood Capillary blood specimen / Unknown 06/15/2025 8:00 PM EDT 06/15/2025 8:01 PM EDT us Phillip Clark MD LAB POINT OF CARE TE ST DOCKED DEVICE UNSOLICITED RESULTS Final Result Performing Organization Address City/[facility]/ZIP Co de Phone Number [facility] [address] [phone] * (ABNORMAL) POCT glucose meter (06/15/2025 5:56 PM EDT) [facility] POCT Glucose 121(H) 74 - 99 [...] Comment 06/15/2025 5:57 PM EDT [facility] Associate Doctor ID Bony Thomas 025 5:57 PM EDT HEALTHCARE LAB Device ID [id number] 06/15/2025 5:57 PM EDT [facility]ALTH[facility] Specimen Type POC Arterial 06/15/2025 5:57 PM EDT [facility] Blood Arterial blood specimen / Unknown 06/15/2025 5:56 PM EDT 06/15/2025 5:57 PM EDT us Phillip Clark MD LAB POINT OF CARE TE ST DOCKED DEVICE UNSOLICITED RESULTS Final Result Performing Organization Address City/[facility]/ZIP Co de Phone Number [facility] [address] [place] [address] * Magnesium (06/15/2025 4:11 PM EDT) [facility] Magnesium, Plasma 2.1 1.9 - 2.4 mg/dL 06/15/2025 6:21 PM EDT [facility] Blood Venous blood specimen / Unknown Venipuncture / Unknown 06/15/2025 4:11 PM EDT 06/15/2025 4:39 PM EDT us Phillip Clark MD LAB BLOOD ORDERABLES Final R esult [facility] [address] [place] [address] * Phosphorus (06/15/2025 4:11 PM EDT) Phosphorus, Plasma 2.9 2.5 - 4.5 mg/dL 06/15/2025 5:12 PM EDT [facility] Blood Venous blood specimen / Unknown Venipuncture / Unknown 06/15/2025 4:11 PM EDT 06/15/2025 4:39 PM EDT us Phillip Clark MD LAB BLOOD ORDERABLES Final R esult [facility] [address] [place] [address] * (ABNORMAL) Basic metabolic panel (06/15/2025 4:11 PM EDT) Pathologist [facility] Glucose, Plasma 123(H) 74 - 99 mg/dL 06/15/2025 5:12 PM EDT [facility] BUN, Plasma 19 8 - 23 mg/dL 06/15/2025 5:12 PM EDT [facility] Creatinine, Plasma 0.88 0.70 - 1.20 mg/dL 06/15/2025 5:12 PM EDT [facility] BUN/Creatinine Ratio 22 06/15/2025 5:12 PM EDT [facility] Sodium, Plasma 133(L) 136 - 145 mmol/L 06/15/2025 5:12 PM EDT [facility] Potassium, Plasma 3.9 3.6 - 4.9 mmol/L 06/15/2025 5:12 PM EDT [facility] Chloride, Plasma 102 97 - 107 mmol/L 06/15/2025 5:12 PM EDT [facility] CO2, Plasma 23 22 - 29 mmol/L 06/15/2025 5:12 PM EDT [facility] Anion Gap 8 6 - 16 mmol/L 06/15/2025 5:12 PM EDT [facility] Total Calcium, Plasma 8.6(L) 8.9 - 10.2 mg/dL 06/15/2025 5:12 PM EDT [facility] eGFRcr 93.1 mL/min/1.7 3m*2 [...] Final R esult Performing Organization Address City/[facility]/ZIP Co de Phone Number [facility] [address] [place] [address] * (ABNORMAL) POCT glucose meter (06/15/2025 12:14 PM EDT) [facility] Signature POCT Glucose 137(H) 74 - [...] Comment 06/15/2025 12:16 PM EDT [facility] Associate Doctor ID Bony Thomas 025 12:16 PM EDT [facility] Device ID [id number] 06/15/2025 12:16 PM EDT [facility] Specimen Type POC Arterial 06/15/2025 12:16 PM EDT [facility] Blood Arterial blood specimen / Unknown 06/15/2025 12:14 PM EDT 06/15/2025 12:16 PM EDT us Phillip Clark MD LAB POINT OF CARE TE ST DOCKED DEVICE UNSOLICITED RESULTS Final Result Performing Organization Address City/[facility]/ZIP Co de Phone Number [facility]ALTHCARE LAB [address] [place] [address] * [place] [facility], E/M 30-74 MINUTES (06/15/2025 9:19 [...] - 99 mg/dL 06/15/2025 8:25 AM EDT [facility] Comment:Accuracy of a glucos e result [...] for testing. Comment 06/15/2025 8:25 AM EDT [facility] Associate Doctor ID Bony Thomas 025 8:25 AM EDT [facility] Device ID [id number] 06/15/2025 8:[address] [facility] Specimen Type POC Arterial 06/15/2025 8:[address] [facility] Blood Arterial blood specimen / Unknown 06/15/2025 8:24 AM EDT 06/15/2025 8:25 AM EDT us Phillip Clark MD LAB POINT OF CARE TE ST DOCKED DEVICE UNSOLICITED RESULTS Final Result [facility] [address] [place] [id number] * (ABNORMAL) CBC and Differential (06/15/2025 8:18 AM EDT) [facility] Signature WBC Count 12.56(H) 3.70 - 10.30 10*3/uL LAB HEMATOLOGY METHOD 06/15/2025 8:47 AM EDT [facility] RBC Count 4.60 4.60 - 6.10 10*6/uL LAB HEMATOLOGY METHOD 06/15/2025 8:47 AM EDT [facility] HGB 12.8(L) 13.7 - 17.5 g/dL LAB HEMATOLOGY METHOD 06/15/2025 8:47 AM EDT [facility] HCT 39.4(L) 40.0 - 51.0 % LAB HEMATOLOGY METHOD 06/15/2025 8:47 AM EDT [facility] Platelet Count 120(L) 155 - 369 10*3/uL LAB HEMATOLOGY METHOD 06/15/2025 8:47 AM EDT [facility] MCV 86 79 - 98 fL LAB HEMATOLOGY METHOD 06/15/2025 8:47 AM EDT [facility] MCH 27.8 26.0 - 32.0 pg LAB HEMATOLOGY METHOD 06/15/2025 8:47 AM EDT [facility] MCHC 32.5 30.7 - 35.5 g/dL LAB HEMATOLOGY METHOD 06/15/2025 8:47 AM EDT [facility] RDW 15.5(H) 11.5 - 14.5 % LAB HEMATOLOGY METHOD 06/15/2025 8:47 AM EDT [facility] MPV 10.6 8.8 - 12.5 fL LAB HEMATOLOGY METHOD 06/15/2025 8:47 AM EDT [facility] nRBC 0.0 <=0.0 per 100 WBCs LAB HEMATOLOGY METHOD 06/15/2025 8:47 AM EDT [facility] Differential Type Automated LAB HEMATOLOGY METHOD 06/15/2025 8:47 AM EDT [facility] Neutrophils % 84 % LAB HEMATOLOGY METHOD 06/15/2025 8:47 AM EDT [facility] Lymphocytes % 5 % LAB HEMATOLOGY METHOD 06/15/2025 8:47 AM EDT [facility] Monocytes % 10 % LAB HEMATOLOGY METHOD 06/15/2025 8:47 AM EDT [facility] Eosinophils % 0 % LAB HEMATOLOGY METHOD 06/15/2025 8:47 AM EDT [facility] Basophils % 0 % LAB HEMATOLOGY METHOD 06/15/2025 8:47 AM EDT [facility] Immature Granulocytes % 1 % LAB HEMATOLOGY METHOD 06/15/2025 8:47 AM EDT [facility] Neutrophils Absolute 10.59(H) 1.60 - 6.10 10*3/uL LAB HEMATOLOGY METHOD 06/15/2025 8:47 AM EDT [facility] Lymphocytes Absolute 0.60(L) 1.20 - 3.90 10*3/uL LAB HEMATOLOGY METHOD 06/15/2025 8:47 AM EDT [facility] Monocytes Absolute 1.29(H) 0.30 - 0.90 10*3/uL LAB HEMATOLOGY METHOD 06/15/2025 8:47 AM EDT [facility] Eosinophils Absolute 0.00 0.00 - 0.50 10*3/uL LAB HEMATOLOGY METHOD 06/15/2025 8:47 AM EDT [facility] Basophils Absolute 0.02 0.00 - 0.10 10*3/uL LAB HEMATOLOGY METHOD 06/15/2025 8:47 AM EDT [facility] Immature Granulocytes Absolute 0.06 0.00 - 0.06 10*3/uL LAB HEMATOLOGY METHOD 06/15/2025 8:47 AM EDT [facility] Blood Venous blood specimen / Unknown Venipuncture / Unknown 06/15/2025 8:18 AM EDT 06/15/2025 8:34 AM EDT Narrative [facility] - 06/15/2025 8:47 AM EDT Therapeutic decision making should be based on absolute values, rather than percentages. us Phillip Clark MD LAB BLOOD ORDERABLES Final R esult [facility] [address] [place] [address] * (ABNORMAL) Protime-INR (06/15/2025 6:40 AM EDT) Prothrombin Time 16.5(H) 12.0 - 14.3 sec LAB COAGULATION METHOD 06/15/2025 7:53 AM EDT [facility] INR 1.3(H) 0.9 - 1.1 LAB COAGULATION METHOD 06/15/2025 7:53 AM EDT [facility] Blood Arterial blood specimen / Unknown Venipuncture / Unknown 06/15/2025 6:40 AM EDT 06/15/2025 6:47 AM EDT Narrative [facility] - 06/15/2025 7:53 AM EDT OPTIMAL INR RANGES FOR PATIENT ON ORAL ANTICOAGULANT THERAPY Prevention of venous thromboembolism INR 2.0 to 3.0 In patients with heart disease: Atrial fibrillation INR 2.0 to 3.0 Valvular heart disease INR 2.0 to 3.0 Tissue heart valves INR 2.0 to 3.0 Mechanical prosthetic valves INR 2.5 to 3.5 Prevention of recurrent SC INR 2.5 to 3.5 Phillip Clark MD LAB BLOOD ORDERABLES Final R esult Performing Organization Address City/[facility] Co de Phone Number [facility] [address] [place] [address] * Ionized calcium, whole blood (06/15/2025 6:40 AM EDT) Pathologist [facility] Ionized Calcium, Whole Blood 4.6 4.6 - 5.1 mg/dL LAB HEMATOLOGY METHOD 06/15/2025 6:50 AM EDT [facility] Blood Arterial blood specimen / Unknown Venipuncture / Unknown 06/15/2025 6:40 AM EDT 06/15/2025 6:48 AM EDT Phillip Clark MD LAB BLOOD ORDERABLES Final R esult [facility] [address] [place] [address] * ECG Adult - POD 1 (06/15/2025 5:20 AM EDT) EKG DIAGNOSIS CLASS Abnormal MUSE ECG Ventricular Rate 71 BPM MUSE ECG Atrial Rate 71 BPM MUSE ECG WA Interval 182 ms MUSE ECG QRSD Interval 108 ms MUSE ECG QT Interval 418 ms MUSE ECG QTC Interval 454 ms MUSE ECG P [place] 51 degrees MUSE ECG R [place] -48 degrees MUSE ECG T Wave [place] -12 degrees MUSE ECG Diagnosis Normal sinus rhythm MUSE ECG Diagnosis Left anterior fascicular block MUSE ECG Diagnosis Abnormal ECG MUSE ECG Diagnosis MUSE ECG Diagnosis Confirmed by Bimal Brambila ([id number]) on 06/15/2025 11:38:57 AM MUSE ECG 06/15/2025 5:20 AM EDT 06/15/2025 11:38 AM EDT us Phillip Clark MD ECG ORDERABLES Final Result MUSE ECG * (ABNORMAL) Blood gas panel, arterial (06/15/2025 3:58 AM EDT) pH, Arterial 7.39 7.31 - 7.42 LAB HEMATOLOGY METHOD 06/15/2025 4:06 AM EDT [facility] pCO2, Arterial 39 32 - 45 mmHg LAB HEMATOLOGY METHOD 06/15/2025 4:06 AM EDT [facility] pO2, Arterial 79(L) >80 mmHg LAB HEMATOLOGY METHOD 06/15/2025 4:06 AM EDT [facility] SO2, Measured, Arterial 97 94 - 98 % LAB HEMATOLOGY METHOD 06/15/2025 4:06 AM EDT [facility] Base Excess, Arterial -1.2 -2.0 - 3.0 mmol/L LAB HEMATOLOGY METHOD 06/15/2025 4:06 AM EDT [facility] Bicarbonate, Calculated, Arterial 24 22 - 26 mmol/L LAB HEMATOLOGY METHOD 06/15/2025 4:06 AM EDT [facility] Hematocrit, Whole Blood 39.7(L) 40.0 - 51.0 % LAB HEMATOLOGY METHOD 06/15/2025 4:06 AM EDT [facility] Sodium, Whole Blood 134(L) 136 - 145 mmol/L LAB HEMATOLOGY METHOD 06/15/2025 4:06 AM EDT [facility] Potassium, Whole Blood 4.4 3.6 - 4.9 mmol/L LAB HEMATOLOGY METHOD 06/15/2025 4:06 AM EDT [facility] Chloride, Whole Blood 108(H) 97 - 107 mmol/L LAB HEMATOLOGY METHOD 06/15/2025 4:06 AM EDT [facility] Glucose, Whole Blood 132(H) 74 - 99 mg/dL LAB HEMATOLOGY METHOD 06/15/2025 4:06 AM EDT [facility] Ionized Calcium, Whole Blood 4.5(L) 4.6 - 5.1 mg/dL LAB HEMATOLOGY METHOD 06/15/2025 4:06 AM EDT [facility] Lactate, Arterial, Whole Blood 0.9 0.5 - 1.6 mmol/L LAB HEMATOLOGY METHOD 06/15/2025 4:06 AM EDT [facility] Blood Arterial blood specimen / Unknown Arterial Puncture / Unknown 06/15/2025 3:58 AM EDT 06/15/2025 4:06 AM EDT us Phillip Clark MD LAB BLOOD ORDERABLES Final R esult [facility] [address] [place] [address] * XR Chest 1 View (06/15/2025 2:53 [...] of NG tube. Right internal jugular approach Canjilon-Shira catheter and mediastinal drain in unchanged position. [...] IMG XR PROCEDURES Final Resu lt * [place] [facility], ADDL 30 MIN, [place] [facility], ADDL 30 MIN (06/15/2025 12:21 [...] LAB HEMATOLOGY METHOD 06/15/2025 8:17 AM EDT [facility] Neutrophils % 85 % LAB HEMATOLOGY METHOD 06/15/2025 8:17 AM EDT [facility] Lymphocytes % 4 % LAB HEMATOLOGY METHOD 06/15/2025 8:17 AM EDT [facility] Monocytes % 10 % LAB HEMATOLOGY METHOD 06/15/2025 8:17 AM EDT [facility] Eosinophils % 0 % LAB HEMATOLOGY METHOD 06/15/2025 8:17 AM EDT [facility] Basophils % 0 % LAB HEMATOLOGY METHOD 06/15/2025 8:17 AM EDT [facility] Immature Granulocytes % 1 % LAB HEMATOLOGY METHOD 06/15/2025 8:17 AM EDT [facility] Immature Granulocytes Absolute 0.05 0.00 - 0.06 10*3/uL LAB HEMATOLOGY METHOD 06/15/2025 8:17 AM EDT [facility] Neutrophils Absolute 9.28(H) 1.60 - 6.10 10*3/uL LAB HEMATOLOGY METHOD 06/15/2025 8:17 AM EDT [facility] Lymphocytes Absolute 0.45(L) 1.20 - 3.90 10*3/uL LAB HEMATOLOGY METHOD 06/15/2025 8:17 AM EDT [facility] Monocytes Absolute 1.14(H) 0.30 - 0.90 10*3/uL LAB HEMATOLOGY METHOD 06/15/2025 8:17 AM EDT [facility] Basophils Absolute 0.02 0.00 - 0.10 10*3/uL LAB HEMATOLOGY METHOD 06/15/2025 8:17 AM EDT [facility] Eosinophils Absolute 0.00 0.00 - 0.50 10*3/uL LAB HEMATOLOGY METHOD 06/15/2025 8:17 AM EDT [facility] Blood Venous blood specimen / Unknown Venipuncture / Unknown 06/15/2025 12:20 AM EDT 06/15/2025 12:26 AM EDT us Phillip Clark MD LAB BLOOD ORDERABLES Final R esult [facility] [address] [place] [address] * Phosphorus (06/15/2025 12:20 AM EDT) Phosphorus, Plasma 2.6 2.5 - 4.5 mg/dL 06/15/2025 8:33 AM EDT [facility] Blood Venous blood specimen / Unknown Venipuncture / Unknown 06/15/2025 12:20 AM EDT 06/15/2025 12:26 AM EDT Phillip Clark MD LAB BLOOD ORDERABLES Final R esult Performing Organization Address [facility] Co de Phone Number [facility] [address] [place] [address] * (ABNORMAL) Magnesium (06/15/2025 12:20 AM EDT) Magnesium, Plasma 2.5(H) 1.9 - 2.4 mg/dL 06/15/2025 7:37 AM EDT [facility] Blood Venous blood specimen / Unknown Venipuncture / Unknown 06/15/2025 12:20 AM EDT 06/15/2025 12:26 AM EDT Phillip Clark MD LAB BLOOD ORDERABLES Final R esult Performing Organization Address [facility] de Phone Number [facility] [address] [place] [address] * (ABNORMAL) Basic metabolic panel (06/15/2025 12:20 AM EDT) Glucose, Plasma 140(H) 74 - 99 mg/dL 06/15/2025 7:37 AM EDT [facility] BUN, Plasma 17 8 - 23 mg/dL 06/15/2025 7:37 AM EDT [facility] Creatinine, Plasma 0.84 0.70 - 1.20 mg/dL 06/15/2025 7:37 AM EDT [facility] BUN/Creatinine Ratio 20 06/15/2025 7:37 AM EDT [facility] Sodium, Plasma 138 136 - 145 mmol/L 06/15/2025 7:37 AM EDT [facility] Potassium, Plasma 4.6 3.6 - 4.9 mmol/L 06/15/2025 7:37 AM EDT [facility] Chloride, Plasma 107 97 - 107 mmol/L 06/15/2025 7:37 AM EDT [facility] CO2, Plasma 18(L) 22 - 29 mmol/L 06/15/2025 7:37 AM EDT [facility] Anion Gap 13 6 - 16 mmol/L 06/15/2025 7:37 AM EDT [facility] Total Calcium, Plasma 8.0(L) 8.9 - 10.2 mg/dL 06/15/2025 7:37 AM EDT [facility] eGFRcr 94.4 mL/min/1.7 3m*2 06/15/2025 7:37 AM EDT [facility] Comment:Reported eGFRcr in m L/min/1.73m2 is based the CKD-EPI 2020 equation that does not use a race coefficient. Blood Venous blood specimen / Unknown Venipuncture / Unknown 06/15/2025 12:20 AM EDT 06/15/2025 12:26 AM EDT us Phillip Clark MD LAB BLOOD ORDERABLES Final R esult [facility] [address] [place] [address] * (ABNORMAL) CBC W/O Differential (06/15/2025 12:20 AM EDT) WBC Count 10.94(H) 3.70 - 10.30 10*3/uL LAB HEMATOLOGY METHOD 06/15/2025 8:32 AM EDT [facility] RBC Count 4.94 4.60 - 6.10 10*6/uL LAB HEMATOLOGY METHOD 06/15/2025 8:32 AM EDT [facility] HGB 13.6(L) 13.7 - 17.5 g/dL LAB HEMATOLOGY METHOD 06/15/2025 8:32 AM EDT [facility] HCT 41.0 40.0 - 51.0 % LAB HEMATOLOGY METHOD 06/15/2025 8:32 AM EDT [facility] Platelet Count 142(L) 155 - 369 10*3/uL LAB HEMATOLOGY METHOD 06/15/2025 8:32 AM EDT [facility] MCV 87 79 - 98 fL LAB HEMATOLOGY METHOD 06/15/2025 8:32 AM EDT [facility] MCH 27.5 26.0 - 32.0 pg LAB HEMATOLOGY METHOD 06/15/2025 8:32 AM EDT [facility] MCHC 31.8 30.7 - 35.5 g/dL LAB HEMATOLOGY METHOD 06/15/2025 8:32 AM EDT [facility] RDW 15.6(H) 11.5 - 14.5 % LAB HEMATOLOGY METHOD 06/15/2025 8:32 AM EDT [facility] MPV 11.1 8.8 - 12.5 fL LAB HEMATOLOGY METHOD 06/15/2025 8:32 AM EDT [facility] nRBC 0.0 <=0.0 per 100 WBCs LAB HEMATOLOGY METHOD 06/15/2025 8:32 AM EDT [facility] Blood Venous blood specimen / Unknown Venipuncture / Unknown 06/15/2025 12:20 AM EDT 06/15/2025 12:26 AM EDT us Phillip Clark MD LAB BLOOD ORDERABLES Final R esult Performing Organization Address City/[facility]/ZIP Co de Phone Number [facility] [address] [place] [address] * Potassium, Plasma (06/15/2025 12:20 AM EDT) Pathologist [facility] Potassium, Plasma 4.5 3.6 - 4.9 mmol/L 06/15/2025 12:51 AM EDT [facility] Blood Venous blood specimen / Unknown Venipuncture / Unknown 06/15/2025 12:20 AM EDT 06/15/2025 12:26 AM EDT Phillip Clark MD LAB BLOOD ORDERABLES Final R esult [facility] [address] [place] [address] * Hematocrit (06/15/2025 12:20 AM EDT) HCT 41.0 40.0 - 51.0 % LAB HEMATOLOGY METHOD 06/15/2025 12:36 AM EDT [facility] Blood Venous blood specimen / Unknown Venipuncture / Unknown 06/15/2025 12:20 AM EDT 06/15/2025 12:26 AM EDT Phillip Clark MD LAB BLOOD ORDERABLES Final R esult Performing Organization Address [facility] Co de Phone Number [facility] [address] [place] [address] * (ABNORMAL) Hemoglobin (06/15/2025 12:20 AM EDT) Pathologist [facility] HGB 13.6(L) 13.7 - 17.5 g/dL LAB HEMATOLOGY METHOD 06/15/2025 12:36 AM EDT [facility] Blood Venous blood specimen / Unknown Venipuncture / Unknown 06/15/2025 12:20 AM EDT 06/15/2025 12:26 AM EDT Phillip Clark MD LAB BLOOD ORDERABLES Final R esult Performing Organization Address [facility] de Phone Number [facility] [address] [place] [address] * (ABNORMAL) Blood gas, arterial (06/15/2025 12:20 AM EDT) pH, Arterial 7.37 7.31 - 7.42 LAB HEMATOLOGY METHOD 06/15/2025 12:37 AM EDT [facility] pCO2, Arterial 40 32 - 45 mmHg LAB HEMATOLOGY METHOD 06/15/2025 12:37 AM EDT [facility] pO2, Arterial 65(L) >80 mmHg LAB HEMATOLOGY METHOD 06/15/2025 12:37 AM EDT [facility] SO2, Measured, Arterial 94 94 - 98 % LAB HEMATOLOGY METHOD 06/15/2025 12:37 AM EDT [facility] Base Excess, Arterial -1.8 -2.0 - 3.0 mmol/L LAB HEMATOLOGY METHOD 06/15/2025 12:37 AM EDT [facility] Bicarbonate, Calculated, Arterial 23 22 - 26 mmol/L LAB HEMATOLOGY METHOD 06/15/2025 12:37 AM EDT [facility] Hematocrit, Whole Blood 41.1 40.0 - 51.0 % LAB HEMATOLOGY METHOD 06/15/2025 12:37 AM EDT [facility] Sodium, Whole Blood 137 136 - 145 mmol/L LAB HEMATOLOGY METHOD 06/15/2025 12:37 AM EDT [facility] Potassium, Whole Blood 4.2 3.6 - 4.9 mmol/L LAB HEMATOLOGY METHOD 06/15/2025 12:37 AM EDT [facility] Chloride, Whole Blood 110(H) 97 - 107 mmol/L LAB HEMATOLOGY METHOD 06/15/2025 12:37 AM EDT [facility] Glucose, Whole Blood 140(H) 74 - 99 mg/dL LAB HEMATOLOGY METHOD 06/15/2025 12:37 AM EDT [facility] Ionized Calcium, Whole Blood 4.5(L) 4.6 - 5.1 mg/dL LAB HEMATOLOGY METHOD 06/15/2025 12:37 AM EDT [facility] Lactate, Arterial, Whole Blood 1.8(H) 0.5 - 1.6 mmol/L LAB HEMATOLOGY METHOD 06/15/2025 12:37 AM EDT [facility] Blood Arterial blood specimen / Unknown Arterial Puncture / Unknown 06/15/2025 12:20 AM EDT 06/15/2025 12:34 AM EDT Phillip Clark MD LAB BLOOD ORDERABLES Final R esult [facility] [address] [place] [address] * (ABNORMAL) Blood gas, arterial (06/14/2025 8:04 PM EDT) pH, Arterial 7.35 7.31 - 7.42 LAB HEMATOLOGY METHOD 06/14/2025 8:19 PM EDT [facility] pCO2, Arterial 39 32 - 45 mmHg LAB HEMATOLOGY METHOD 06/14/2025 8:19 PM EDT [facility] pO2, Arterial 88 >80 mmHg LAB HEMATOLOGY METHOD 06/14/2025 8:19 PM EDT [facility] SO2, Measured, Arterial 98 94 - 98 % LAB HEMATOLOGY METHOD 06/14/2025 8:19 PM EDT [facility] Base Excess, Arterial -3.7(L) -2.0 - 3.0 mmol/L LAB HEMATOLOGY METHOD 06/14/2025 8:19 PM EDT [facility] Bicarbonate, Calculated, Arterial 22 22 - 26 mmol/L LAB HEMATOLOGY METHOD 06/14/2025 8:19 PM EDT [facility] Hematocrit, Whole Blood 44.7 40.0 - 51.0 % LAB HEMATOLOGY METHOD 06/14/2025 8:19 PM EDT [facility] Sodium, Whole Blood 138 136 - 145 mmol/L LAB HEMATOLOGY METHOD 06/14/2025 8:19 PM EDT [facility] Potassium, Whole Blood 4.5 3.6 - 4.9 mmol/L LAB HEMATOLOGY METHOD 06/14/2025 8:19 PM EDT [facility] Chloride, Whole Blood 109(H) 97 - 107 mmol/L LAB HEMATOLOGY METHOD 06/14/2025 8:19 PM EDT [facility] Glucose, Whole Blood 185(H) 74 - 99 mg/dL LAB HEMATOLOGY METHOD 06/14/2025 8:19 PM EDT [facility] Ionized Calcium, Whole Blood 4.5(L) 4.6 - 5.1 mg/dL LAB HEMATOLOGY METHOD 06/14/2025 8:19 PM EDT [facility] Lactate, Arterial, Whole Blood 3.0(H) 0.5 - 1.6 mmol/L LAB HEMATOLOGY METHOD 06/14/2025 8:19 PM EDT [facility] Blood Arterial blood specimen / Unknown Arterial Puncture / Unknown 06/14/2025 8:04 PM EDT 06/14/2025 8:14 PM EDT us Phillip Clark MD LAB BLOOD ORDERABLES Final R esult [facility] [address] [place] [address] * Potassium (06/14/2025 8:03 PM EDT) Potassium, Plasma 4.9 3.6 - 4.9 mmol/L 06/14/2025 8:33 PM EDT [facility] Blood Arterial blood specimen / Unknown Venipuncture / Unknown 06/14/2025 8:03 PM EDT 06/14/2025 8:11 PM EDT Phillip Clark MD LAB BLOOD ORDERABLES Final R esult Performing Organization Address City/[facility]/ZIP Co de Phone Number [facility] [address] [place] [address] * (ABNORMAL) Magnesium (06/14/2025 8:03 PM EDT) Magnesium, Plasma 2.7(H) 1.9 - 2.4 mg/dL 06/14/2025 8:40 PM EDT [facility] Blood Arterial blood specimen / Unknown Venipuncture / Unknown 06/14/2025 8:03 PM EDT 06/14/2025 8:11 PM EDT Phillip Clark MD LAB BLOOD ORDERABLES Final R esult Performing Organization Address City/[facility]/ZIP Co de Phone Number [facility] [address] [place] [address] * (ABNORMAL) CBC (06/14/2025 8:03 PM EDT) WBC Count 13.98(H) 3.70 - 10.30 10*3/uL LAB HEMATOLOGY METHOD 06/14/2025 8:20 PM EDT [facility] RBC Count 5.14 4.60 - 6.10 10*6/uL LAB HEMATOLOGY METHOD 06/14/2025 8:20 PM EDT [facility] HGB 14.5 13.7 - 17.5 g/dL LAB HEMATOLOGY METHOD 06/14/2025 8:20 PM EDT [facility] HCT 43.9 40.0 - 51.0 % LAB HEMATOLOGY METHOD 06/14/2025 8:20 PM EDT [facility] Platelet Count 158 155 - 369 10*3/uL LAB HEMATOLOGY METHOD 06/14/2025 8:20 PM EDT [facility] MCV 85 79 - 98 fL LAB HEMATOLOGY METHOD 06/14/2025 8:20 PM EDT [facility] MCH 28.2 26.0 - 32.0 pg LAB HEMATOLOGY METHOD 06/14/2025 8:20 PM EDT [facility] MCHC 33.0 30.7 - 35.5 g/dL LAB HEMATOLOGY METHOD 06/14/2025 8:20 PM EDT [facility] RDW 14.9(H) 11.5 - 14.5 % LAB HEMATOLOGY METHOD 06/14/2025 8:20 PM EDT [facility] MPV 10.8 8.8 - 12.5 fL LAB HEMATOLOGY METHOD 06/14/2025 8:20 PM EDT [facility] nRBC 0.0 <=0.0 per 100 WBCs LAB HEMATOLOGY METHOD 06/14/2025 8:20 PM EDT [facility] Blood Arterial blood specimen / Unknown Venipuncture / Unknown 06/14/2025 8:03 PM EDT 06/14/2025 8:11 PM EDT us Phillip Clark MD LAB BLOOD ORDERABLES Final R esult [facility] [address] [place] [address] * (ABNORMAL) Basic metabolic panel (06/14/2025 8:03 PM EDT) Glucose, Plasma 194(H) 74 - 99 mg/dL 06/14/2025 8:40 PM EDT [facility] BUN, Plasma 16 8 - 23 mg/dL 06/14/2025 8:40 PM EDT [facility] Creatinine, Plasma 0.85 0.70 - 1.20 mg/dL 06/14/2025 8:40 PM EDT [facility] BUN/Creatinine Ratio 19 06/14/2025 8:40 PM EDT [facility] Sodium, Plasma 139 136 - 145 mmol/L 06/14/2025 8:40 PM EDT [facility] Potassium, Plasma 5.0(H) 3.6 - 4.9 mmol/L 06/14/2025 8:40 PM EDT [facility] Chloride, Plasma 109(H) 97 - 107 mmol/L 06/14/2025 8:40 PM EDT [facility] CO2, Plasma 20(L) 22 - 29 mmol/L 06/14/2025 8:40 PM EDT [facility] Anion Gap 10 6 - 16 mmol/L 06/14/2025 8:40 PM EDT [facility] Total Calcium, Plasma 8.2(L) 8.9 - 10.2 mg/dL 06/14/2025 8:40 PM EDT [facility] eGFRcr 94.1 mL/min/1.7 3m*2 06/14/2025 8:40 PM EDT [facility] Comment:Reported eGFRcr in m L/min/1.73m2 is based the CKD-EPI 2020 equation that does not use a race coefficient. Blood Arterial blood specimen / Unknown Venipuncture / Unknown 06/14/2025 8:03 PM EDT 06/14/2025 8:11 PM EDT us Phillip Clark MD LAB BLOOD ORDERABLES Final R esult [facility] [address] [place] [address] * (ABNORMAL) Blood gas panel, arterial (06/14/2025 6:47 PM EDT) pH, Arterial 7.30(L) 7.31 - 7.42 LAB HEMATOLOGY METHOD 06/14/2025 6:57 PM EDT [facility] pCO2, Arterial 41 32 - 45 mmHg LAB HEMATOLOGY METHOD 06/14/2025 6:57 PM EDT [facility] pO2, Arterial 70(L) >80 mmHg LAB HEMATOLOGY METHOD 06/14/2025 6:57 PM EDT [facility] SO2, Measured, Arterial 94 94 - 98 % LAB HEMATOLOGY METHOD 06/14/2025 6:57 PM EDT [facility] Base Excess, Arterial -5.6(L) -2.0 - 3.0 mmol/L LAB HEMATOLOGY METHOD 06/14/2025 6:57 PM EDT [facility] Bicarbonate, Calculated, Arterial 21(L) 22 - 26 mmol/L LAB HEMATOLOGY METHOD 06/14/2025 6:57 PM EDT [facility] Hematocrit, Whole Blood 45.5 40.0 - 51.0 % LAB HEMATOLOGY METHOD 06/14/2025 6:57 PM EDT [facility] Sodium, Whole Blood 138 136 - 145 mmol/L LAB HEMATOLOGY METHOD 06/14/2025 6:57 PM EDT [facility] Potassium, Whole Blood 4.4 3.6 - 4.9 mmol/L LAB HEMATOLOGY METHOD 06/14/2025 6:57 PM EDT [facility] Chloride, Whole Blood 109(H) 97 - 107 mmol/L LAB HEMATOLOGY METHOD 06/14/2025 6:57 PM EDT [facility] Glucose, Whole Blood 209(H) 74 - 99 mg/dL LAB HEMATOLOGY METHOD 06/14/2025 6:57 PM EDT [facility] Ionized Calcium, Whole Blood 4.6 4.6 - 5.1 mg/dL LAB HEMATOLOGY METHOD 06/14/2025 6:57 PM EDT [facility] Lactate, Arterial, Whole Blood 3.9(H) 0.5 - 1.6 mmol/L LAB HEMATOLOGY METHOD 06/14/2025 6:57 PM EDT [facility] Blood Arterial blood specimen / Unknown Arterial Puncture / Unknown 06/14/2025 6:47 PM EDT 06/14/2025 6:56 PM EDT us Phillip Clark MD LAB BLOOD ORDERABLES Final R esult Performing Organization Address City/State/[facility] Co de Phone Number [facility] [address] [place] [address] * [place] [facility], E/M 30-74 MINUTES (06/14/2025 5:35 [...] LAB HEMATOLOGY METHOD 06/14/2025 4:12 PM EDT [facility] pCO2, Arterial 43 32 - 45 mmHg LAB HEMATOLOGY METHOD 06/14/2025 4:12 PM EDT [facility] pO2, Arterial 126 >80 mmHg LAB HEMATOLOGY METHOD 06/14/2025 4:12 PM EDT [facility] SO2, Measured, Arterial 99(H) 94 - 98 % LAB HEMATOLOGY METHOD 06/14/2025 4:12 PM EDT [facility] Base Excess, Arterial -5.8(L) -2.0 - 3.0 mmol/L LAB HEMATOLOGY METHOD 06/14/2025 4:12 PM EDT [facility] Bicarbonate, Calculated, Arterial 21(L) 22 - 26 mmol/L LAB HEMATOLOGY METHOD 06/14/2025 4:12 PM EDT [facility] Hematocrit, Whole Blood 43.9 40.0 - 51.0 % LAB HEMATOLOGY METHOD 06/14/2025 4:12 PM EDT [facility] Sodium, Whole Blood 139 136 - 145 mmol/L LAB HEMATOLOGY METHOD 06/14/2025 4:12 PM EDT [facility] Potassium, Whole Blood 3.8 3.6 - 4.9 mmol/L LAB HEMATOLOGY METHOD 06/14/2025 4:12 PM EDT [facility] Chloride, Whole Blood 109(H) 97 - 107 mmol/L LAB HEMATOLOGY METHOD 06/14/2025 4:12 PM EDT [facility] Glucose, Whole Blood 179(H) 74 - 99 mg/dL LAB HEMATOLOGY METHOD 06/14/2025 4:12 PM EDT [facility] Ionized Calcium, Whole Blood 4.6 4.6 - 5.1 mg/dL LAB HEMATOLOGY METHOD 06/14/2025 4:12 PM EDT [facility] Lactate, Arterial, Whole Blood 4.3(H) 0.5 - 1.6 mmol/L LAB HEMATOLOGY METHOD 06/14/2025 4:12 PM EDT [facility] Blood Arterial blood specimen / Unknown Arterial Puncture / Unknown 06/14/2025 3:57 PM EDT 06/14/2025 4:11 PM EDT us Phillip Clark MD LAB BLOOD ORDERABLES Final R esult [facility] [address] [place] [address] * (ABNORMAL) Blood gas panel with oximetry, mixed venous (06/14/2025 3:00 PM EDT) pH, Mixed Venous 7.28(L) 7.32 - 7.43 LAB HEMATOLOGY METHOD 06/14/2025 3:24 PM EDT [facility] pCO2, Mixed Venous 47 40 - 55 mmHg LAB HEMATOLOGY METHOD 06/14/2025 3:24 PM EDT [facility] pO2, Mixed Venous 54(H) 25 - 40 mmHg LAB HEMATOLOGY METHOD 06/14/2025 3:24 PM EDT [facility] SO2, Measured, Mixed Venous 84(H) 65 - 80 % LAB HEMATOLOGY METHOD 06/14/2025 3:24 PM EDT [facility] Bicarbonate, Calculated, Mixed Venous 22 22 - 26 mmol/L LAB HEMATOLOGY METHOD 06/14/2025 3:24 PM EDT [facility] Base Excess, Mixed Venous -4.7(L) -2.0 - 3.0 mmol/L LAB HEMATOLOGY METHOD 06/14/2025 3:24 PM EDT [facility] Hematocrit, Whole Blood 43.0 40.0 - 51.0 % LAB HEMATOLOGY METHOD 06/14/2025 3:24 PM EDT [facility] Sodium, Whole Blood 139 136 - 145 mmol/L LAB HEMATOLOGY METHOD 06/14/2025 3:24 PM EDT [facility] Potassium, Whole Blood 3.7 3.6 - 4.9 mmol/L LAB HEMATOLOGY METHOD 06/14/2025 3:24 PM EDT [facility] Chloride, Whole Blood 110(H) 97 - 107 mmol/L LAB HEMATOLOGY METHOD 06/14/2025 3:24 PM EDT [facility] Ionized Calcium, Whole Blood 4.6 4.6 - 5.1 mg/dL LAB HEMATOLOGY METHOD 06/14/2025 3:24 PM EDT [facility] Glucose, Whole Blood 149(H) 74 - 99 mg/dL LAB HEMATOLOGY METHOD 06/14/2025 3:24 PM EDT [facility] Oxyhemoglobin, Mixed Venous, Whole Blood 81.9(H) 40.0 - 70.0 % LAB HEMATOLOGY METHOD 06/14/2025 3:24 PM EDT [facility] Hemoglobin Reduced, Mixed Venous, Whole Blood 16.1 % LAB HEMATOLOGY METHOD 06/14/2025 3:24 PM EDT [facility] Total Hemoglobin, Mixed Venous, Whole Blood 14.0 13.7 - 17.5 g/dL LAB HEMATOLOGY METHOD 06/14/2025 3:24 PM EDT [facility] Blood Mixed venous blood specimen / Unknown Venipuncture / Unknown 06/14/2025 3:00 PM EDT 06/14/2025 3:23 PM EDT us Phillip Clark MD LAB BLOOD ORDERABLES Final R esult [facility] [address] [place] [address] * XR Abdomen 1 View (06/14/2025 2:57 [...] Detected Not Detected 06/15/2025 12:46 PM EDT [facility] Swab (Axilla and Groin) Non-blood Collection / Unknown 06/14/2025 2:37 PM EDT 06/14/2025 3:10 PM EDT Narrative [facility] - 06/15/2025 12:46 PM EDT This PCR assay was developed and its performance characteristics determined by [facility] as appropriate for clinical purposes. This assay has not been cleared or approved by the FDA, but is performed in a CLIA regulated laboratory that is qualified to perform high-complexity testing. Phillip Clark MD LAB MICROBIOLOGY - GENERAL O RDERABLES Final Result Performing Organization Address [facility] Co de Phone Number [facility] [address] [place] [address] * Multi Drug Resistance Test (06/14/2025 2:37 PM EDT) Culture No growth at day 1 06/15/2025 4:03 PM EDT [facility] Swab (Nares and Smita Rectal) Non-blood Collection / Unknown 06/14/2025 2:37 PM EDT 06/14/2025 3:10 PM EDT Narrative [facility] - 06/15/2025 4:03 PM [...] O RDERABLES Final Result Performing Organization Address [facility] Co de Phone Number [facility] [address] [place] [address] * (ABNORMAL) Blood gas, arterial (06/14/2025 2:37 PM EDT) pH, Arterial 7.31 7.31 - 7.42 LAB HEMATOLOGY METHOD 06/14/2025 2:58 PM EDT [facility] pCO2, Arterial 42 32 - 45 mmHg LAB HEMATOLOGY METHOD 06/14/2025 2:58 PM EDT [facility] pO2, Arterial 154 >80 mmHg LAB HEMATOLOGY METHOD 06/14/2025 2:58 PM EDT [facility] SO2, Measured, Arterial 100(H) 94 - 98 % LAB HEMATOLOGY METHOD 06/14/2025 2:58 PM EDT [facility] Base Excess, Arterial -5.1(L) -2.0 - 3.0 mmol/L LAB HEMATOLOGY METHOD 06/14/2025 2:58 PM EDT [facility] Bicarbonate, Calculated, Arterial 21(L) 22 - 26 mmol/L LAB HEMATOLOGY METHOD 06/14/2025 2:58 PM EDT [facility] Hematocrit, Whole Blood 43.5 40.0 - 51.0 % LAB HEMATOLOGY METHOD 06/14/2025 2:58 PM EDT [facility] Sodium, Whole Blood 139 136 - 145 mmol/L LAB HEMATOLOGY METHOD 06/14/2025 2:58 PM EDT [facility] Potassium, Whole Blood 3.6 3.6 - 4.9 mmol/L LAB HEMATOLOGY METHOD 06/14/2025 2:58 PM EDT [facility] Chloride, Whole Blood 110(H) 97 - 107 mmol/L LAB HEMATOLOGY METHOD 06/14/2025 2:58 PM EDT [facility] Glucose, Whole Blood 131(H) 74 - 99 mg/dL LAB HEMATOLOGY METHOD 06/14/2025 2:58 PM EDT [facility] Ionized Calcium, Whole Blood 4.7 4.6 - 5.1 mg/dL LAB HEMATOLOGY METHOD 06/14/2025 2:58 PM EDT [facility] Lactate, Arterial, Whole Blood 5.0(H) 0.5 - 1.6 mmol/L LAB HEMATOLOGY METHOD 06/14/2025 2:58 PM EDT [facility] Blood Arterial blood specimen / Unknown Arterial Puncture / Unknown 06/14/2025 2:37 PM EDT 06/14/2025 2:57 PM EDT us Phillip Clark MD LAB BLOOD ORDERABLES Final R esult [facility] [address] [place] [address] * ECG Adult - Upon Admissoin to CVICU (06/14/2025 2:36 PM EDT) EKG DIAGNOSIS CLASS Abnormal MUSE ECG Ventricular Rate 61 BPM MUSE ECG Atrial Rate 61 BPM MUSE ECG WA Interval 176 ms MUSE ECG QRSD Interval 154 ms MUSE ECG QT Interval 520 ms MUSE ECG QTC Interval 523 ms MUSE ECG P [place] 58 degrees MUSE ECG R [place] 113 degrees MUSE ECG T Wave [place] -67 degrees MUSE ECG Diagnosis Sinus rhythm with occasional ventricular-paced complexes MUSE ECG Diagnosis Suspect unspecified pacemaker failure MUSE ECG Diagnosis Nonspecific intraventricular block MUSE ECG Diagnosis Minimal voltage criteria for LVH, may be normal variant ( Alek product ) MUSE ECG Diagnosis Abnormal ECG MUSE ECG Diagnosis MUSE ECG Diagnosis Confirmed by Brenton Mejia ([id number]) on 06/14/2025 3:39:18 PM MUSE ECG 06/14/2025 2:36 PM EDT 06/14/2025 3:39 PM EDT us Phillip Clark MD ECG ORDERABLES Final Result Performing Organization Address City/[facility]/ZIP Co de Phone Number MUSE ECG * Potassium, Plasma (06/14/2025 2:36 PM EDT) [facility] Potassium, Plasma 3.8 3.6 - 4.9 mmol/L 06/14/2025 4:13 PM EDT [facility] Comment:Hemolyzed, result ma y be falsely increased. Blood Venous blood specimen / Unknown Venipuncture / Unknown 06/14/2025 2:36 PM EDT 06/14/2025 3:20 PM EDT us Phillip Clark MD LAB BLOOD ORDERABLES Final R esult [facility] [address] [place] [address] * Hematocrit (06/14/2025 2:36 PM EDT) [facility] HCT 42.6 40.0 - 51.0 % LAB HEMATOLOGY METHOD 06/14/2025 4:38 PM EDT [facility] Blood Venous blood specimen / Unknown Venipuncture / Unknown 06/14/2025 2:36 PM EDT 06/14/2025 4:17 PM EDT Phillip Clark MD LAB BLOOD ORDERABLES Final R esult Performing Organization Address [facility]/ZIP Co de Phone Number [facility] [address] [place] [address] * Hemoglobin (06/14/2025 2:36 PM EDT) HGB 13.9 13.7 - 17.5 g/dL LAB HEMATOLOGY METHOD 06/14/2025 4:38 PM EDT [facility] Blood Venous blood specimen / Unknown Venipuncture / Unknown 06/14/2025 2:36 PM EDT 06/14/2025 4:17 PM EDT Phillip Clark MD LAB BLOOD ORDERABLES Final R esult Performing Organization Address [facility] Co de Phone Number [facility] [address] [place] [address] * APTT (06/14/2025 2:36 PM EDT) aPTT 29 25 - 35 sec LAB COAGULATION METHOD 06/14/2025 4:11 PM EDT [facility] Blood Venous blood specimen / Unknown Venipuncture / Unknown 06/14/2025 2:36 PM EDT 06/14/2025 3:18 PM EDT Phillip Clark MD LAB BLOOD ORDERABLES Final R esult Performing Organization Address City/[facility] Co de Phone Number [facility] [address] [place] [address] * (ABNORMAL) Protime-INR (06/14/2025 2:36 PM EDT) Prothrombin Time 16.6(H) 12.0 - 14.3 sec LAB COAGULATION METHOD 06/14/2025 4:11 PM EDT [facility] INR 1.3(H) 0.9 - 1.1 LAB COAGULATION METHOD 06/14/2025 4:11 PM EDT [facility] Blood Venous blood specimen / Unknown Venipuncture / Unknown 06/14/2025 2:36 PM EDT 06/14/2025 3:18 PM EDT Narrative [facility] - 06/14/2025 4:11 PM EDT OPTIMAL INR RANGES FOR PATIENT ON ORAL ANTICOAGULANT THERAPY Prevention of venous thromboembolism INR 2.0 to 3.0 In patients with heart disease: Atrial fibrillation INR 2.0 to 3.0 Valvular heart disease INR 2.0 to 3.0 Tissue heart valves INR 2.0 to 3.0 Mechanical prosthetic valves INR 2.5 to 3.5 Prevention of recurrent SC INR 2.5 to 3.5 Phillip Clark MD LAB BLOOD ORDERABLES Final R Queweyult Performing Organization Address City/[facility]/ZIP Co de Phone Number [facility] [address] [place] [address] * (ABNORMAL) Phosphorus (06/14/2025 2:36 PM EDT) Phosphorus, Plasma 2.3(L) 2.5 - 4.5 mg/dL 06/14/2025 4:13 PM EDT [facility] Blood Venous blood specimen / Unknown Venipuncture / Unknown 06/14/2025 2:36 PM EDT 06/14/2025 3:20 PM EDT Phillip Clark MD LAB BLOOD ORDERABLES Final R esult [facility] [address] [place] [address] * (ABNORMAL) Magnesium (06/14/2025 2:36 PM EDT) Magnesium, Plasma 3.2(H) 1.9 - 2.4 mg/dL 06/14/2025 6:55 PM EDT [facility] Blood Venous blood specimen / Unknown Venipuncture / Unknown 06/14/2025 2:36 PM EDT 06/14/2025 3:20 PM EDT us Phillip Clark MD LAB BLOOD ORDERABLES Final R esult [facility] [address] [place] [address] * (ABNORMAL) Basic metabolic panel (06/14/2025 2:36 PM EDT) Glucose, Plasma 134(H) 74 - 99 mg/dL 06/14/2025 4:13 PM EDT [facility] BUN, Plasma 14 8 - 23 mg/dL 06/14/2025 4:13 PM EDT [facility] Creatinine, Plasma 0.83 0.70 - 1.20 mg/dL 06/14/2025 4:13 PM EDT [facility] BUN/Creatinine Ratio 17 06/14/2025 4:13 PM EDT [facility] Sodium, Plasma 140 136 - 145 mmol/L 06/14/2025 4:13 PM EDT [facility] Potassium, Plasma 3.8 3.6 - 4.9 mmol/L 06/14/2025 4:13 PM EDT [facility] Comment:Hemolyzed, result ma y be falsely increased. Chloride, Plasma 108(H) 97 - 107 mmol/L 06/14/2025 4:13 PM EDT [facility] CO2, Plasma 19(L) 22 - 29 mmol/L 06/14/2025 4:13 PM EDT [facility] Anion Gap 13 6 - 16 mmol/L 06/14/2025 4:13 PM EDT [facility] Total Calcium, Plasma 8.3(L) 8.9 - 10.2 mg/dL 06/14/2025 4:13 PM EDT [facility] eGFRcr 94.7 mL/min/1.7 3m*2 06/14/2025 4:13 PM EDT [facility] Comment:Reported eGFRcr in m L/min/1.73m2 is based the CKD-EPI 2020 equation that does not use a race coefficient. Blood Venous blood specimen / Unknown Venipuncture / Unknown 06/14/2025 2:36 PM EDT 06/14/2025 3:20 PM EDT us Phillip Clark MD LAB BLOOD ORDERABLES Final R esult [facility] [address] [place] [address] * (ABNORMAL) CBC (06/14/2025 2:36 PM EDT) WBC Count 15.83(H) 3.70 - 10.30 10*3/uL LAB HEMATOLOGY METHOD 06/14/2025 4:38 PM EDT [facility] RBC Count 4.98 4.60 - 6.10 10*6/uL LAB HEMATOLOGY METHOD 06/14/2025 4:38 PM EDT [facility] HGB 13.9 13.7 - 17.5 g/dL LAB HEMATOLOGY METHOD 06/14/2025 4:38 PM EDT [facility] HCT 42.6 40.0 - 51.0 % LAB HEMATOLOGY METHOD 06/14/2025 4:38 PM EDT [facility] Platelet Count 160 155 - 369 10*3/uL LAB HEMATOLOGY METHOD 06/14/2025 4:38 PM EDT [facility] MCV 86 79 - 98 fL LAB HEMATOLOGY METHOD 06/14/2025 4:38 PM EDT [facility] MCH 27.9 26.0 - 32.0 pg LAB HEMATOLOGY METHOD 06/14/2025 4:38 PM EDT [facility] MCHC 32.6 30.7 - 35.5 g/dL LAB HEMATOLOGY METHOD 06/14/2025 4:38 PM EDT [facility] RDW 15.2(H) 11.5 - 14.5 % LAB HEMATOLOGY METHOD 06/14/2025 4:38 PM EDT [facility] MPV 10.3 8.8 - 12.5 fL LAB HEMATOLOGY METHOD 06/14/2025 4:38 PM EDT [facility] nRBC 0.0 <=0.0 per 100 WBCs LAB HEMATOLOGY METHOD 06/14/2025 4:38 PM EDT [facility] Blood Venous blood specimen / Unknown Venipuncture / Unknown 06/14/2025 2:36 PM EDT 06/14/2025 4:17 PM EDT us Phillip Clark MD LAB BLOOD ORDERABLES Final R esult [facility] [address] [place] [address] * (ABNORMAL) POCT arterial blood gas gem (06/14/2025 2:00 PM EDT) pH, Arterial 7.35 7.31 - 7.42 06/14/2025 2:[address] [facility] pCO2, Arterial 38 32 - 45 mm Hg 06/14/2025 2:[address] [facility] pO2, Arterial 376 >80 mm Hg 06/14/2025 2:[address] [facility] SO2, Arterial 100(H) 94 - 98 % 06/14/2025 2:[address] [facility] Base Excess, Arterial -4.2(L) -2 - 3 mmol/L 06/14/2025 2:[address] [facility] HCO3, Arterial 21.0(L) 22 - 26 mmol/L 06/14/2025 2:[address] [facility] Total Hemoglobin, Arterial, Whole Blood 14.5 13.7 - 17.5 g/dL 06/14/2025 2:[address] [facility] Hematocrit, Arterial 44.0 40 - 51.0 % 06/14/2025 2:[address] [facility] Sodium, Arterial 136 136 - 145 mmol/L 06/14/2025 2:[address] [facility] Potassium, Arterial 3.4(L) 3.6 - 4.9 mmol/L 06/14/2025 2:[address] [facility] Chloride, Whole Blood 105 97 - 107 mmol/L 06/14/2025 2:[address] [facility] Glucose, Arterial 138(H) 74 - 99 mg/dL 06/14/2025 2:[address] [facility] Ionized Calcium, Arterial 4.9 4.6 - 5.1 mg/dL 06/14/2025 2:[address] [facility] Lactate, Arterial 4.2(H) 0.5 - 1.6 mmol/L 06/14/2025 2:02 PM EDT [facility] Body Temperature 37.0 Celsius 06/14/2025 2:[address] [facility] pH, Temp Corrected, Arterial 7.35 7.31 - 7.42 06/14/2025 2:[address] [facility] pCO2, Temp Corrected, Arterial 38 32 - 45 mm Hg 06/14/2025 2:[address] [facility] pO2, Temp Corrected, Arterial 376 >80 mm Hg 06/14/2025 2:[address] [facility] Associate Doctor ID Ricki Zamarripa 06/14/2025 2:[address] [facility] Blood Whole blood specimen / Unknown 06/14/2025 2:00 PM EDT 06/14/2025 2:02 PM EDT us Phillip Clark MD LAB POINT OF CARE TE ST DOCKED DEVICE UNSOLICITED RESULTS Final Result Performing Organization Address City/State/[facility] Co de Phone Number [facility] [address] [place] [address] * (ABNORMAL) POCT arterial blood gas gem (06/14/2025 1:22 PM EDT) pH, Arterial 7.34 7.31 - 7.42 06/14/2025 1:[address] [facility] pCO2, Arterial 41 32 - 45 mm Hg 06/14/2025 1:[address] [facility] pO2, Arterial 518 >80 mm Hg 06/14/2025 1:[address] [facility] SO2, Arterial 100(H) 94 - 98 % 06/14/2025 1:[address] [facility] Base Excess, Arterial -3.5(L) -2 - 3 mmol/L 06/14/2025 1:[address] [facility] HCO3, Arterial 22.1 22 - 26 mmol/L 06/14/2025 1:[address] [facility] Total Hemoglobin, Arterial, Whole Blood 13.2(L) 13.7 - 17.5 g/dL 06/14/2025 1:[address] [facility] Hematocrit, Arterial 40.0 40 - 51.0 % 06/14/2025 1:[address] [facility] Sodium, Arterial 139 136 - 145 mmol/L 06/14/2025 1:[address] [facility] Potassium, Arterial 3.3(L) 3.6 - 4.9 mmol/L 06/14/2025 1:[address] [facility] Chloride, Whole Blood 104 97 - 107 mmol/L 06/14/2025 1:[address] [facility] Glucose, Arterial 137(H) 74 - 99 mg/dL 06/14/2025 1:[address] [facility] Ionized Calcium, Arterial 4.2(L) 4.6 - 5.1 mg/dL 06/14/2025 1:[address] [facility] Lactate, Arterial 3.0(H) 0.5 - 1.6 mmol/L 06/14/2025 1:[address] [facility] Body Temperature 37.0 Celsius 06/14/2025 1:[address] [facility] pH, Temp Corrected, Arterial 7.34 7.31 - 7.42 06/14/2025 1:[address] [facility] pCO2, Temp Corrected, Arterial 41 32 - 45 mm Hg 06/14/2025 1:[address] [facility] pO2, Temp Corrected, Arterial 518 >80 mm Hg 06/14/2025 1:[address] [facility] Associate Doctor ID Ricki Zamarripa 06/14/2025 1:[address] [facility] Blood Whole blood specimen / Unknown 06/14/2025 1:22 PM EDT 06/14/2025 1:23 PM EDT us Phillip Clark MD LAB POINT OF CARE TE ST DOCKED DEVICE UNSOLICITED RESULTS Final Result [facility] [address] [place] [address] * (ABNORMAL) POCT arterial blood gas gem (06/14/2025 12:52 PM EDT) pH, Arterial 7.40 7.31 - 7.42 06/14/2025 12:[address] [facility] pCO2, Arterial 35 32 - 45 mm Hg 06/14/2025 12:[address] [facility] pO2, Arterial 399 >80 mm Hg 06/14/2025 12:[address] [facility] SO2, Arterial 100(H) 94 - 98 % 06/14/2025 12:[address] [facility] Base Excess, Arterial -2.6(L) -2 - 3 mmol/L 06/14/2025 12:[address] [facility] HCO3, Arterial 21.7(L) 22 - 26 mmol/L 06/14/2025 12:[address] [facility] Total Hemoglobin, Arterial, Whole Blood 11.7(L) 13.7 - 17.5 g/dL 06/14/2025 12:[address] [facility] Hematocrit, Arterial 35.0(L) 40 - 51.0 % 06/14/2025 12:[address] [facility] Sodium, Arterial 134(L) 136 - 145 mmol/L 06/14/2025 12:[address] [facility] Potassium, Arterial 4.2 3.6 - 4.9 mmol/L 06/14/2025 12:[address] [facility] Chloride, Whole Blood 107 97 - 107 mmol/L 06/14/2025 12:[address] [facility] Glucose, Arterial 148(H) 74 - 99 mg/dL 06/14/2025 12:[address] [facility] Ionized Calcium, Arterial 4.1(L) 4.6 - 5.1 mg/dL 06/14/2025 12:[address] [facility] Lactate, Arterial 2.2(H) 0.5 - 1.6 mmol/L 06/14/2025 12:[address] [facility] Body Temperature 37.0 Celsius 06/14/2025 12:[address] [facility] pH, Temp Corrected, Arterial 7.40 7.31 - 7.42 06/14/2025 12:[address] [facility] pCO2, Temp Corrected, Arterial 35 32 - 45 mm Hg 06/14/2025 12:[address] [facility] pO2, Temp Corrected, Arterial 399 >80 mm Hg 06/14/2025 12:[address] [facility] Associate Doctor ID LuísJean Claude 06/14/2025 12:54 PM EDT [facility] Blood Whole blood specimen / Unknown 06/14/2025 12:52 PM EDT 06/14/2025 12:54 PM EDT Phillip Clark MD LAB POINT OF CARE TE ST DOCKED DEVICE UNSOLICITED RESULTS Final Result Performing Organization Address [facility] Co de Phone Number [facility] [address] [place] [address] * POCT ACT (06/14/2025 12:43 PM EDT) ACT+ (HIGH RANGE) 98 68 - 600 Seconds 06/14/2025 12:49 PM EDT [facility] Associate Doctor ID Vick Dupont 06/14/2025 12:49 PM EDT [facility] ACT Device ID [id number] 06/14/2025 12:49 PM EDT [facility] Comment 06/14/2025 12:49 PM EDT [facility] Comment: ACT performed by [...] RESULTS Final Result Performing Organization Address [place]/[facility] Co de Phone Number [facility] [address] [facility] [address] [place] [address] * (ABNORMAL) POCT arterial blood gas gem (06/14/2025 12:16 PM EDT) pH, Arterial 7.42 7.31 - 7.42 06/14/2025 12:19 PM EDT [facility] pCO2, Arterial 36 32 - 45 mm Hg 06/14/2025 12:19 PM EDT [facility] pO2, Arterial 358 >80 mm Hg 06/14/2025 12:19 PM EDT [facility] SO2, Arterial 99(H) 94 - 98 % 06/14/2025 12:[address] [facility] Base Excess, Arterial -0.8 -2 - 3 mmol/L 06/14/2025 12:[address] [facility] HCO3, Arterial 23.4 22 - 26 mmol/L 06/14/2025 12:[address] [facility] Total Hemoglobin, Arterial, Whole Blood 11.3(L) 13.7 - 17.5 g/dL 06/14/2025 12:[address] [facility] Hematocrit, Arterial 34.0(L) 40 - 51.0 % 06/14/2025 12:[address] [facility] Sodium, Arterial 134(L) 136 - 145 mmol/L 06/14/2025 12:[address] [facility] Potassium, Arterial 5.7(H) 3.6 - 4.9 mmol/L 06/14/2025 12:[address] [facility] Chloride, Whole Blood 105 97 - 107 mmol/L 06/14/2025 12:[address] [facility] Glucose, Arterial 119(H) 74 - 99 mg/dL 06/14/2025 12:[address] [facility] Ionized Calcium, Arterial 4.0(L) 4.6 - 5.1 mg/dL 06/14/2025 12:[address] [facility] Lactate, Arterial 1.6 0.5 - 1.6 mmol/L 06/14/2025 12:[address] [facility] Body Temperature 37.0 Celsius 06/14/2025 12:[address] [facility] pH, Temp Corrected, Arterial 7.42 7.31 - 7.42 06/14/2025 12:[address] [facility] pCO2, Temp Corrected, Arterial 36 32 - 45 mm Hg 06/14/2025 12:[address] [facility] pO2, Temp Corrected, Arterial 358 >80 mm Hg 06/14/2025 12:[address] [facility] Associate Doctor ID Cresencio, Vick 06/14/2025 12:[address] [facility] Blood Whole blood specimen / Unknown 06/14/2025 12:16 PM EDT 06/14/2025 12:19 PM EDT us Phillip Clark MD LAB POINT OF CARE TE ST DOCKED DEVICE UNSOLICITED RESULTS Final Result [facility] [address] [place] [address] * (ABNORMAL) POCT arterial blood gas gem (06/14/2025 12:06 PM EDT) pH, Arterial 7.39 7.31 - 7.42 06/14/2025 12:[address] [facility] pCO2, Arterial 40 32 - 45 mm Hg 06/14/2025 12:[address] [facility] pO2, Arterial 378 >80 mm Hg 06/14/2025 12:[address] [facility] SO2, Arterial 100(H) 94 - 98 % 06/14/2025 12:[address] [facility] Base Excess, Arterial -0.7 -2 - 3 mmol/L 06/14/2025 12:[address] [facility] HCO3, Arterial 24.2 22 - 26 mmol/L 06/14/2025 12:[address] [facility] Total Hemoglobin, Arterial, Whole Blood 11.5(L) 13.7 - 17.5 g/dL 06/14/2025 12:[address] [facility] Hematocrit, Arterial 35.0(L) 40 - 51.0 % 06/14/2025 12:[address] [facility] Sodium, Arterial 134(L) 136 - 145 mmol/L 06/14/2025 12:[address] [facility] Potassium, Arterial 5.0(H) 3.6 - 4.9 mmol/L 06/14/2025 12:[address] [facility] Chloride, Whole Blood 105 97 - 107 mmol/L 06/14/2025 12:[address] [facility] Glucose, Arterial 123(H) 74 - 99 mg/dL 06/14/2025 12:[address] [facility] Ionized Calcium, Arterial 4.2(L) 4.6 - 5.1 mg/dL 06/14/2025 12:[address] [facility] Lactate, Arterial 1.2 0.5 - [...] Hg 06/14/2025 12:09 PM EDT [facility] Associate Doctor ID Vick Dupont 06/14/2025 12:09 PM EDT [facility] Blood Whole blood specimen / Unknown 06/14/2025 12:06 PM EDT 06/14/2025 12:09 PM EDT us Phillip Clark MD LAB POINT OF CARE TE ST DOCKED DEVICE UNSOLICITED RESULTS Final Result Performing Organization Address City/State/[facility] Co de Phone Number [facility] [address] [place] [address] * (ABNORMAL) QPLUS (06/14/2025 11:55 AM EDT) [...] Seconds 06/14/2025 12:12 PM EDT [facility] Associate Doctor ID Ricki Zamarripa 06/14/2025 12:12 PM EDT [facility] Device ID [id number] 06/14/2025 12:12 PM EDT [facility] Whole Blood 06/14/2025 11:5 5 AM EDT 06/14/2025 12:12 PM EDT Narrative [facility] - 06/14/2025 12:[address]: No Clot Detected us Phillip Clark MD LAB POINT OF CARE TE ST DOCKED DEVICE UNSOLICITED RESULTS Final Result Performing Organization Address City/[facility] de Phone Number [facility] [address] [place] [address] * POCT ACT (06/14/2025 11:54 AM EDT) ACT+ (HIGH RANGE) 510 68 - 600 Seconds 06/14/2025 12:07 PM EDT [facility] Associate Doctor ID Cresencio Gene 06/14/2025 12:07 PM EDT [facility] ACT Device ID [id number] 06/14/2025 12:07 PM EDT [facility] Comment 06/14/2025 12:07 PM EDT [facility] Comment: ACT performed by [...] UNSOLICITED RESULTS Final Result Performing Organization Address [facility] de Phone Number [facility] [address] LAB [address] [place] [address] * (ABNORMAL) POCT arterial blood gas gem (06/14/2025 11:33 AM EDT) pH, Arterial 7.37 7.31 - 7.42 06/14/2025 11:35 AM EDT [facility] pCO2, Arterial 43 32 - 45 mm Hg 06/14/2025 11:35 AM EDT [facility] pO2, Arterial 380 >80 mm Hg 06/14/2025 11:35 AM EDT [facility] SO2, Arterial 99(H) 94 - 98 % 06/14/2025 11:35 AM [facility] Base Excess, Arterial -0.5 -2 - 3 mmol/L 06/14/2025 11:35 AM [facility] HCO3, Arterial 24.9 22 - 26 mmol/L 06/14/2025 11:35 AM [facility] Total Hemoglobin, Arterial, Whole Blood 11.5(L) 13.7 - 17.5 g/dL 06/14/2025 11:35 AM [facility] Hematocrit, Arterial 35.0(L) 40 - 51.0 % 06/14/2025 11:35 AM [facility] Sodium, Arterial 134(L) 136 - 145 mmol/L 06/14/2025 11:35 AM [facility] Potassium, Arterial 5.6(H) 3.6 - 4.9 mmol/L 06/14/2025 11:35 AM [facility] Chloride, Whole Blood 103 97 - 107 mmol/L 06/14/2025 11:35 AM [facility] Glucose, Arterial 123(H) 74 - 99 mg/dL 06/14/2025 11:35 AM [facility] Ionized Calcium, Arterial 4.2(L) 4.6 - 5.1 mg/dL 06/14/2025 11:35 AM [facility] Lactate, Arterial 1.0 0.5 - 1.6 mmol/L 06/14/2025 11:35 AM [facility] Body Temperature 37.0 Celsius 06/14/2025 11:35 AM [facility] pH, Temp Corrected, Arterial 7.37 7.31 - 7.42 06/14/2025 11:35 AM [facility] pCO2, Temp Corrected, Arterial 43 32 - 45 mm Hg 06/14/2025 11:35 AM [facility] pO2, Temp Corrected, Arterial 380 >80 mm Hg 06/14/2025 11:35 AM [facility] Associate Doctor ID Cresencio, Vick 06/14/2025 11:35 AM [facility] Blood Whole blood specimen / Unknown 06/14/2025 11:33 AM EDT 06/14/2025 11:35 AM EDT us Phillip Clark MD LAB POINT OF CARE TE ST DOCKED DEVICE UNSOLICITED RESULTS Final Result Performing Organization Address [facility] Co de Phone Number [facility] [address] [place] [address] * POCT ACT (06/14/2025 11:24 AM EDT) ACT+ (HIGH RANGE) 520 68 - 600 Seconds 06/14/2025 11:37 AM EDT [facility] Associate Doctor ID Vick Dupont 06/14/2025 11:37 AM EDT [facility] ACT Device ID [id number] 06/14/2025 11:[address] [facility] Comment 06/14/2025 11:37 AM EDT [facility] Comment: ACT performed by [...] UNSOLICITED RESULTS Final Result Performing Organization Address [facility] de Phone Number [facility] [address] [place] [place] [id number] [place] [address] LAB [address] [place] [address] * (ABNORMAL) POCT arterial blood gas gem (06/14/2025 11:03 AM EDT) pH, Arterial 7.40 7.31 - 7.42 06/14/2025 11:04 AM EDT [facility] pCO2, Arterial 41 32 - 45 mm Hg 06/14/2025 11:[address] [facility] pO2, Arterial 406 >80 mm Hg 06/14/2025 11:04 AM EDT [facility] SO2, Arterial 100(H) 94 - 98 % 06/14/2025 11:04 AM EDT [facility] Base Excess, Arterial 0.5 -2 - 3 mmol/L 06/14/2025 11:[address] [facility] HCO3, Arterial 25.4 22 - 26 mmol/L 06/14/2025 11:[address] [facility] Total Hemoglobin, Arterial, Whole Blood 11.9(L) 13.7 - 17.5 g/dL 06/14/2025 11:[address] [facility] Hematocrit, Arterial 36.0(L) 40 - 51.0 % 06/14/2025 11:[address] [facility] Sodium, Arterial 133(L) 136 - 145 mmol/L 06/14/2025 11:[address] [facility] Potassium, Arterial 5.3(H) 3.6 - 4.9 mmol/L 06/14/2025 11:[address] [facility] Chloride, Whole Blood 103 97 - 107 mmol/L 06/14/2025 11:[address] [facility] Glucose, Arterial 121(H) 74 - 99 mg/dL 06/14/2025 11:[address] [facility] Ionized Calcium, Arterial 4.2(L) 4.6 - 5.1 mg/dL 06/14/2025 11:04 AM [facility] Lactate, Arterial 1.0 0.5 - 1.6 mmol/L 06/14/2025 11:[address] [facility] Body Temperature 37.0 Celsius 06/14/2025 11:[address] [facility] pH, Temp Corrected, Arterial 7.40 7.31 - 7.42 06/14/2025 11:04 AM [facility] pCO2, Temp Corrected, Arterial 41 32 - 45 mm Hg 06/14/2025 11:[address] [facility] pO2, Temp Corrected, Arterial 406 >80 mm Hg 06/14/2025 11:[address] [facility] Associate Doctor ID Cresencio, Vick 06/14/2025 11:[address] [facility] Blood Whole blood specimen / Unknown 06/14/2025 11:03 AM EDT 06/14/2025 11:04 AM EDT us Phillip Clark MD LAB POINT OF CARE TE ST DOCKED DEVICE UNSOLICITED RESULTS Final Result [facility] [address] [place] [address] * POCT ACT (06/14/2025 10:57 AM EDT) ACT+ (HIGH RANGE) 569 68 - 600 Seconds 06/14/2025 11:[address] [facility] Associate Doctor ID Vick Dupont 06/14/2025 11:[address] [facility] ACT Device ID [id number] 06/14/2025 11:[address] [facility] Comment 06/14/2025 11:09 AM EDT [facility] Comment: ACT performed by [...] UNSOLICITED RESULTS Final Result Performing Organization Address [facility] Co de Phone Number [facility] [address] LAB [address] [place] [address] * (ABNORMAL) POCT arterial blood gas gem (06/14/2025 10:33 AM EDT) pH, Arterial 7.39 7.31 - 7.42 06/14/2025 10:[address] [facility] pCO2, Arterial 41 32 - 45 mm Hg 06/14/2025 10:[address] [facility] pO2, Arterial 349 >80 mm Hg 06/14/2025 10:[address] [facility] SO2, Arterial 99(H) 94 - 98 % 06/14/2025 10:[address] [facility] Base Excess, Arterial -0.2 -2 - 3 mmol/L 06/14/2025 10:[address] [facility] HCO3, Arterial 24.8 22 - 26 mmol/L 06/14/2025 10:[address] [facility] Total Hemoglobin, Arterial, Whole Blood 10.9(L) 13.7 - 17.5 g/dL 06/14/2025 10:[address] [facility] Hematocrit, Arterial 33.0(L) 40 - 51.0 % 06/14/2025 10:[address] [facility] Sodium, Arterial 135(L) 136 - 145 mmol/L 06/14/2025 10:[address] [facility] Potassium, Arterial 4.8 3.6 - 4.9 mmol/L 06/14/2025 10:[address] [facility] Chloride, Whole Blood 103 97 - 107 mmol/L 06/14/2025 10:[address] [facility] Glucose, Arterial 116(H) 74 - 99 mg/dL 06/14/2025 10:[address] [facility] Ionized Calcium, Arterial 4.1(L) 4.6 - 5.1 mg/dL 06/14/2025 10:[address] [facility] Lactate, Arterial 1.3 0.5 - 1.6 mmol/L 06/14/2025 10:[address] [facility] Body Temperature 37.0 Celsius 06/14/2025 10:[address] [facility] pH, Temp Corrected, Arterial 7.39 7.31 - 7.42 06/14/2025 10:[address] [facility] pCO2, Temp Corrected, Arterial 41 32 - 45 mm Hg 06/14/2025 10:[address] [facility] pO2, Temp Corrected, Arterial 349 >80 mm Hg 06/14/2025 10:[address] [facility] Associate Doctor ID Vick Dupont 06/14/2025 10:[address] [facility] Blood Whole blood specimen / Unknown 06/14/2025 10:33 AM EDT 06/14/2025 10:34 AM EDT us Phillip Clark MD LAB POINT OF CARE TE ST DOCKED DEVICE UNSOLICITED RESULTS Final Result [facility] [address] [place] [address] * (ABNORMAL) POCT ACT (06/14/2025 10:26 AM EDT) ACT+ (HIGH RANGE) >600(H) 68 - 600 Seconds 06/14/2025 10:40 AM EDT [facility] Associate Doctor ID Vick Dupont 06/14/2025 10:[address] [facility] ACT Device ID [id number] 06/14/2025 10:[address] [facility] Comment 06/14/2025 10:40 AM EDT [facility] Comment: ACT performed by [...] UNSOLICITED RESULTS Final Result Performing Organization Address City/State/[facility] Co de Phone Number [facility] [address] [place] [address] * Surgical Pathology Exam (06/14/2025 10:18 AM EDT) Case Report Surgical Pathology Case: [id number] Authorizing Provider: Phillip Clark MD Collected: 06/14/2025 1018 Ordering Location: [facility] Received: 06/14/2025 1413 Pathologist: Beth Lake MD Specimen: Heart, aortic valve leaflets 06/15/2025 11:44 AM EDT [facility] Final Diagnosis A. AORTIC VALVE LEAFLETS, REPLACEMENT: - FIBROSIS AND MYXOID DEGENERATION. 06/15/2025 11:44 AM EDT [facility] at 1144 EDT Clinical Information Severe aortic regurgitation [I35.1] 06/15/2025 11:44 AM EDT [facility] Gross Description A. AORTIC VALVE LEAFLETS Received fresh and placed in formalin labeled aortic valve leaflets are 2 white-montez soft cardiac leaflets ranging in size from 2.5-4.0 cm in greatest dimension. [employer] Operator sections are submitted in cassette A1. Cold Time: 3h 55m April Santos 06/15/2025 11:44 AM EDT [facility] Tissue Heart structure / Unknown 06/14/2025 10:18 AM EDT 06/14/2025 2:13 PM EDT Comment:Pre-op diagnosis: Severe aortic regurgitation [I35.1] us Phillip Clark MD LAB PATHOLOGY ORDERABLES Fin al Result [facility] [address] [place] [address] * (ABNORMAL) POCT arterial blood gas gem (06/14/2025 10:08 AM EDT) pH, Arterial 7.40 7.31 - 7.42 06/14/2025 10:[address] [facility] pCO2, Arterial 40 32 - 45 mm Hg 06/14/2025 10:[address] [facility] pO2, Arterial 410 >80 mm Hg 06/14/2025 10:[address] [facility] SO2, Arterial 100(H) 94 - 98 % 06/14/2025 10:[address] [facility] Base Excess, Arterial 0.0 -2 - 3 mmol/L 06/14/2025 10:[address] [facility] HCO3, Arterial 24.8 22 - 26 mmol/L 06/14/2025 10:[address] [facility] Total Hemoglobin, Arterial, Whole Blood 10.1(L) 13.7 - 17.5 g/dL 06/14/2025 10:[address] [facility] Hematocrit, Arterial 30.0(L) 40 - 51.0 % 06/14/2025 10:[address] [facility] Sodium, Arterial 133(L) 136 - 145 mmol/L 06/14/2025 10:[address] [facility] Potassium, Arterial 4.7 3.6 - 4.9 mmol/L 06/14/2025 10:[address] [facility] Chloride, Whole Blood 104 97 - 107 mmol/L 06/14/2025 10:[address] [facility] Glucose, Arterial 122(H) 74 - 99 mg/dL 06/14/2025 10:[address] [facility] Ionized Calcium, Arterial 3.9(L) 4.6 - 5.1 mg/dL 06/14/2025 10:[address] [facility] Lactate, Arterial 1.5 0.5 - 1.6 mmol/L 06/14/2025 10:[address] [facility] Body Temperature 37.0 Celsius 06/14/2025 10:[address] [facility] pH, Temp Corrected, Arterial 7.40 7.31 - 7.42 06/14/2025 10:[address] [facility] pCO2, Temp Corrected, Arterial 40 32 - 45 mm Hg 06/14/2025 10:[address] [facility] pO2, Temp Corrected, Arterial 410 >80 mm Hg 06/14/2025 10:[address] [facility] Associate Doctor ID Vick Dupont 06/14/2025 10:[address] [facility] Blood Whole blood specimen / Unknown 06/14/2025 10:08 AM EDT 06/14/2025 10:17 AM EDT Phillip Clark MD LAB POINT OF CARE TE ST DOCKED DEVICE UNSOLICITED RESULTS Final Result Performing Organization Address City/State/[facility] Co de Phone Number [facility] [address] [place] [address] * (ABNORMAL) POCT ACT (06/14/2025 10:04 AM EDT) ACT+ (HIGH RANGE) >600(H) 68 - 600 Seconds 06/14/2025 10:[address] [facility] Associate Doctor ID Vick Dupont 06/14/2025 10:[address] [facility] ACT Device ID [id number] 06/14/2025 10:[address] [facility] Comment 06/14/2025 10:19 AM EDT [facility] Comment: ACT performed by [...] UNSOLICITED RESULTS Final Result Performing Organization Address [facility] de Phone Number [facility] [address] LAB [address] [place] [address] * POCT ACT (06/14/2025 8:13 AM EDT) ACT+ (HIGH RANGE) 90 68 - 600 Seconds 06/14/2025 8:20 AM EDT [facility] Associate Doctor ID Kevin Hernandez 06/14/2025 8:20 AM EDT [facility] ACT Device ID [id number] 06/14/2025 8:20 AM EDT [facility] Comment 06/14/2025 8:20 AM EDT [facility] Comment: ACT performed by [...] RESULTS Final Result Performing Organization Address City/[facility] Co de Phone Number [facility] [address] LAB [address] [place] [address] * (ABNORMAL) POCT arterial blood gas gem (06/14/2025 8:13 AM EDT) pH, Arterial 7.38 7.31 - 7.42 06/14/2025 8:15 AM EDT [facility] pCO2, Arterial 40 32 - 45 mm Hg 06/14/2025 8:[address] [facility] pO2, Arterial 91 >80 mm Hg 06/14/2025 8:15 AM [facility] SO2, Arterial 99(H) 94 - 98 % 06/14/2025 8:15 AM [facility] Base Excess, Arterial -1.3 -2 - 3 mmol/L 06/14/2025 8:15 AM [facility] HCO3, Arterial 23.7 22 - 26 mmol/L 06/14/2025 8:15 AM [facility] Total Hemoglobin, Arterial, Whole Blood 14.5 13.7 - 17.5 g/dL 06/14/2025 8:15 AM [facility] Hematocrit, Arterial 44.0 40 - 51.0 % 06/14/2025 8:15 AM [facility] Sodium, Arterial 135(L) 136 - 145 mmol/L 06/14/2025 8:15 AM [facility] Potassium, Arterial 4.1 3.6 - 4.9 mmol/L 06/14/2025 8:15 AM [facility] Chloride, Whole Blood 103 97 - 107 mmol/L 06/14/2025 8:15 AM [facility] Glucose, Arterial 95 74 - 99 mg/dL 06/14/2025 8:15 AM [facility] Ionized Calcium, Arterial 4.7 4.6 - 5.1 mg/dL 06/14/2025 8:15 AM [facility] Lactate, Arterial 0.8 0.5 - 1.6 mmol/L 06/14/2025 8:15 AM [facility] Body Temperature 37.0 Celsius 06/14/2025 8:15 AM [facility] pH, Temp Corrected, Arterial 7.38 7.31 - 7.42 06/14/2025 8:15 AM [facility] pCO2, Temp Corrected, Arterial 40 32 - 45 mm Hg 06/14/2025 8:15 AM [facility] pO2, Temp Corrected, Arterial 91 >80 mm Hg 06/14/2025 8:15 AM [facility] Associate Doctor ID Lb Coreas 06/14/2025 8:15 AM [facility] Blood Whole blood specimen / Unknown 06/14/2025 8:13 AM EDT 06/14/2025 8:15 AM EDT Phillip Clark MD LAB POINT OF CARE TE ST DOCKED DEVICE UNSOLICITED RESULTS Final Result Performing Organization Address City/[facility] Co de Phone Number [facility] [address] [place] [address] * Type and Screen (06/14/2025 6:27 AM [...] ORDERABL ES Final Result Performing Organization Address [facility] Phone Number BLOOD BANK [address] [place] [address] * POCT glucose meter (06/14/2025 6:23 AM EDT) [facility] POCT Glucose 93 74 - 99 [...] 06/14/2025 6:24 AM EDT [facility] Associate Doctor ID Kassi Sinha 06/14/2025 6:24 AM EDT [facility] Device ID [id number] 06/14/2025 6:24 AM EDT [facility] Specimen Type POC Venous 06/14/2025 6:24 AM EDT [facility] Blood Venous blood specimen / Unknown 06/14/2025 6:23 AM EDT 06/14/2025 6:24 AM EDT us Phillip Clark MD LAB POINT OF CARE TE ST DOCKED DEVICE UNSOLICITED RESULTS Final Result [facility] [address] [place] [address] documented in this encounter Visit Diagnoses Diagnosis Aortic valve regurgitation- Primary Aortic valve disorders Severe aortic regurgitation Other secondary hypertension S/P AVR BMI 30.0-30.9,adult High cholesterol Pure hypercholesterolemia Hypertension Unspecified essential hypertension CAD (coronary artery disease) Coronary atherosclerosis of unspecified type of vessel, [place] or graft History of coronary angioplasty with [...] Subcutaneous, Every 12 hours, First dose on [facility] 06/16/25 at 2100, Until Discontinued, Routine [...] Provider: Lori Molina RN)0847 (Given - Provider: iVcente Hussein, HESHAM)1202 (Given - Provider: Vicente Hussein, [...] add comment - Comment: dose given by business proposal rep rn @ [address] [place], [place] [id number] instructed sports book writer to hold 0900 dose)2003 (Given - [...] Routine 08 (Given - Provider: Brittaney Dumas, HEHSAM) 0846 (Given - Provider: Vicente Hussein, HESHAM) [...] documented as of this encounter Care Teams Home Health Provider Relationship Specialty Start Date End Date Kamran Singh MD [address] [place] [address] PCP - General 02/28/25 documented as of this encounter
--- OUTSIDE RECORDS SUMMARY | 2025-06-14 07:45 | XMS_ITS | Encounter Summary ---
Author Organization [facility] Address [address] [place] [id number] Care Team Providers Care Materials Scheduler Name Role Phone Kamran Singh MD Primary Care Provider +1- [phone] Reason for Visit * Auth/Cert (Routine) Specialty Diagnoses / Procedures Referred By Nathalia t Referred To Contact Diagnoses Severe aortic regurgitation Severe aortic regurgitation [I35.1] Procedures SC -AORT GRF W/CARD BYP F/AORTIC DISSECTION AORTIC ROOT RECONSTRUCTION Phillip Clark MD [address] [facility] [address] [place] [address] Phone: tel: fax: [facility] [address] [place] [address] Phone: tel: Referral ID Status Reason Start Date Expiration Date Visits Re quested Visits Authorized [id number] 1 1 Encounter Details Date Type Department Care Team (Late st Contact Info) Description 06/14/2025 7:45 AM EDT Anesthesia Event [facility] [address] [place] [address] Jean Claude Staley MD [address] [place] [address] Ricik Zamarripa DO [address] [place] [address] Anesthesia Record Procedure Summary Procedure Name Responsible [...] any time in the past 12 m [facility], were you homeless or living in a alf (including now)? No 06/15/[address] [facility] Utilities Answer Date Recorded In the past 12 months has th e [employer], gas, oil, or water company threatened to [...] supine Prep: ChloraPrep Patient monitoring: heart rate, color television console monitor and continuous pulse ox Anesthesia block [...] portions of the procedure(s) and immediately available [place] [place] [place] services the entire duration. See resident note [...] mcg/kg/min) RV: same as baseline Aortic valve: [place] valve replaced by mechanical valve. New valve [...] portions of the procedure(s) and immediately available [place] [place] [facility] services the entire duration. See resident note [...] Patient location during procedure: OR Anesthesiologist: Jean Cluade Staley MD Other anesthesia staff: Ricki Zamarripa [...] 05/05/25 88.7 kg (195 lb 8.8 oz) [place] Body Weight: [place] body weight: 66.1 kg (145 lb 11.6 [...] Description 07/07/2025 2:40 PM EST Office Visit [facility] Cardi[facility] [address], [address] [place] [address] Phillip Clark MD [address] [place] [address] documented as of this encounter Procedures Procedure Name Priority Date/Time Associated Diagnosis Comments PB POINT OF CARE IMAGING PLACEHOLDER Routine 06/14/2025 2:16 PM EDT PB ANESTHESIA NON-TIMED PROCEDURE PLACEHOLDER Routine 06/14/2025 2:15 PM EDT PB POINT OF CARE IMAGING PLACEHOLDER Routine 06/14/2025 8:32 AM EDT SC INSERT/PLACE FLOW DIRECT CATH Routine 06/14/2025 8:32 AM EDT ANESTHESIA ULTRASOUND GUIDED Routine 06/14/2025 8:32 AM EDT PB ANESTHESIA NON-TIMED PROCEDURE PLACEHOLDER Routine 06/14/2025 8:32 AM EDT SC AN CENTRAL LINE DOUBLE LUMEN Routine 06/14/2025 8:32 AM EDT PB ANESTHESIA PLACEHOLDER Routine 06/14/2025 8:16 AM EDT SC AN ELECTIVE ENDOTRACHEAL AIRWAY Routine 06/14/2025 8:16 [...] supine Prep: ChloraPrep Patient monitoring: heart rate, color television console monitor and continuous pulse ox Anesthesia block [...] mcg/kg/min) RV: same as baseline Aortic valve: [place] valve replaced by mechanical valve. New valve is well seated with appropriate movement of valve leaflets. No perivalvular leak. Mean PG of 2mm Hg and AT 55 msec. Aorta: intact after decannulation. Findings were communicated with surgeon. us Jean Claude Staley MD ANESTHESIA ORDERABLES Edited Res ult - Final * SC AN CENTRAL LINE DOUBLE LUMEN, PB ANESTHESIA NON-TIMED PROCEDURE PLACEHOLDER, ANESTHESIA ULTRASOUND GUIDED, SC INSERT/PLACE FLOW DIRECT CATH, PB POINT OF [...] MD ANESTHESIA ORDERABLES Final Resu lt * SC AN ELECTIVE ENDOTRACHEAL AIRWAY, PB ANESTHESIA PLACEHOLDER [...] stylet Endotracheal tube insertion site: oral Blade: Maetusz Blade size: #3 ETT size (mm): 8.0 [...] documented as of this encounter Care Teams Materials Scheduler Relationship Specialty Start Date End Date Kamran Singh MD [address] [place] [address] PCP - General 02/28/25 documented as of this encounter
--- OUTSIDE RECORDS SUMMARY | 2025-06-14 07:45 | XMS_ITS | Encounter Summary ---
Author Organization [facility] Address [address] [id number] Care Team Providers Care Assistant County Attorney Name Role Phone Kamran Singh MD Primary Care Provider [phone] Reason for Visit * Auth/Cert (Routine) Specialty Diagnoses / Procedures Referred By Nathalia t Referred To Contact Diagnoses Severe aortic regurgitation Severe aortic regurgitation [I35.1] Procedures [place] -AORT GRF W/CARD BYP F/AORTIC DISSECTION AORTIC ROOT RECONSTRUCTION Phillip Clark MD [address] [address] Phone: tel: fax: [facility] [address] [place] [address] Phone: tel: Referral ID Status Reason Start Date Expiration Date Visits Re quested Visits Authorized [id number] 1 1 Encounter Details Date Type Department Care Team (Late st Contact Info) Description 06/14/2025 7:45 AM EDT - 06/14/2025 8:15 PM EDT Surgery [facility] [address] [place] [id number] Phillip Clark MD [address] [facility] [address] [place] [address] Aortic valve replacement [35440 (CPT )] Surgery Details Date/Time Status Location [...] any time in the past 12 m [facility], were you homeless or living in a retirement (including now)? No 06/15/2025 [facility] Utilities Answer Date Recorded In the past 12 months has th e [employer], gas, oil, or water [employer] threatened to shut off services in your [...] a referral and prefers to attend at [facility]. [place] will contact Mr. Forrest to discuss and [...] 2. Eligibility: Heart valve surgery 3. Exceptions/exclusions: [facility] Cardiac Rehab Exclusions: None 4. Referral: [facility] Cardiac Rehab Referral: Patient agreed with referral to the cardiac rehabilitation program at [facility] in [place], [place], phone number [phone]. 5. Information sent: Information Sent: Appropriate information will be sent to the receiving cardiac rehabilitation program.: * Progress Notes - Oumou Berger - 06/20/2025 10:15 AM EDT Case Management Discharge Note Bradley Forrest 69 y.o. male CSN: [id number] Admission: 06/14/2025 5:18 AM Primary Problem: Aortic valve regurgitation Primary Organizational Development Manager: Primary Caregiver: Self Assistance Available at Discharge: Current Outpatient/Agency/Support Group: DME Availability of Care Givers (#Hours): Other (comment) (As needed) Family/Organizational Development Manager(s) Willingness Assessed to care for patient at home: Yes Family/Organizational Development Manager(s) Readiness Assessed to care for patient [...] Recieved By: patient Follow-up: Jolynn Pollard APRN [facility] Cardiology [address] [place] [address] [address] [phone] Go on 08/22/2025 Your cardiology appointment is on August 22 at 11am Please arrive 15 minutes early and bring UPDATED medication list. [address] [facility] [phone] Go on 06/22/2025 Your first appointment for your Warfarin/Coumadin management is this FridayJune 22 at 11:30am. Please report to [facility] front admission desk and tell them you are checking in to the Pharmacy Anticoagulation Clinic. The measurement department chief clerk will call the pharmacist who will meet you in the lobby and escort you to the clinic. Please bring all medications you are taking and your insurance card. If you have any issues please call [phone] ext: [phone] and then choose option 2. Discharge Transportation: [...] to transport. Covering RNCM ordered rollator from [facility] to be delivered to bedside. No [...] Plan Anticoagulation Plan Warfarin Pharmacist Managed?: No [facility] Warfarin Dosing Protocol Followed?: No Reason for Protocol Departure: CT Surgery Bridging Agent in Conjunction With Warfarin? : No INR Monitoring Frequency: Monitor INR daily Patient Education : Complete and documented Warfarin dosing and adjustment per CT surgery provider. Transitions of Care Outpatient provider managing warfarin after [facility] discharge: TBD - possibly clinic Recommended date for outpatient INR assessment: TBD - of note, enoxparin copay $0 for 7 day supply Will continue to follow patient's clinical progress daily. Libia Stevenson PharmD, BCCP Clinical Pharmacist - Cardiothoracic Surgery Available via [employer] * Progress Notes - Phillip Clark MD [...] Manage Pain Flowsheets (Taken 06/19/20251704 by Vicente Hsusein RN) Sensory Stimulation Regulation: television on Complementary [...] Ongoing, Progressing Intervention: Promote Activity and Functional Mccone Flowsheets (Taken 06/19/20251704 by Vicente Hussein RN) Activity Assistance Provided: assistance, stand-by Adaptive Equipment Use: use encouraged Self-Care Promotion: independence encouraged Problem: Self-Care Deficit Goal: Improved Ability to Complete Activities of Daily Living Outcome: Ongoing, Progressing Intervention: Promote Activity and Functional Mccone Flowsheets (Taken 06/19/20251704 by Vicente Hussein RN) [...] Ongoing, Progressing Intervention: Promote Activity and Functional Mccone Flowsheets (Taken 06/19/20251704) Activity Assistance Provided: assistance, [...] Ongoing, Progressing Intervention: Promote Activity and Functional Mccone Flowsheets (Taken 06/19/20251704) Activity Assistance Provided: assistance, [...] Plan Anticoagulation Plan Warfarin Pharmacist Managed?: No [facility] Warfarin Dosing Protocol Followed?: No Reason for Protocol Departure: CT Surgery Bridging Agent in Conjunction With Warfarin? : No Goal PTT/anti-Xa: 2.5-3.5 INR Monitoring Frequency: Monitor INR daily Patient Education : Complete and documented Warfarin dosing and adjustment per CT surgery provider. Transitions of Care Outpatient provider managing warfarin after [facility] discharge: TBD - possibly [facility] [...] rhythm - continue warfarin CT surgery pager [phone] [1] acetaminophen, 650 mg, Oral, q4h DEMETRIUS [...] Ongoing, Progressing Intervention: Promote Activity and Functional Mccone Flowsheets (Taken 06/19/2025344) Activity Assistance Provided: assistance, stand-by Self-Care Promotion: independence encouraged Problem: Self-Care Deficit Goal: Improved Ability to Complete Activities of Daily Living Outcome: Ongoing, Progressing Intervention: Promote Activity and Functional Mccone Flowsheets (Taken 06/19/2025344) Activity Assistance Provided: assistance, [...] from the original note were not included. [id number] Tratamiento para contracciones ventriculares prematuras (CVP) [place] [...] Confusi??n. Last Reviewed Date: 2024 00:00:00 ?? [id number] The [employer]. All rights reserved. This information is not intended as a substitute for professional medical care. Always follow your healthcare professional's instructions. * Gabriel Singh - Brittaney Dumas RN - 06/18/2025 6:29 PM EDT Images from the original note were not included. [id number] C??mo comprender las contracciones ventriculares prematuras (CVP) [...] se??al activa partes cercanas del coraz??n contraer. Amalga permite que el coraz??n se comprima de [...] card??acos anteriores, el coraz??n expulsar?? muypoca mushtaq. Amalga provoca aria sensaci??n de pausa entre latidos. El siguiente latido card??aco suele ser m??s bea, ya que la pausa lo permite que el coraz??n descanse y se llene de mushatq. Amalga lleva a aria sensaci??n de latido card??aco [...] port??til jameson unos d??as o incluso semanas. Amalga puede ayudar a diagnosticar los CVP que [...] im??genes del coraz??n. ? An??lisis de mushtaq. Amalga se hace para comprobar los electrolitos y concentraciones tiroideas. Last Reviewed Date: 2024 00:00:00 ?? [id number] The [employer]. All rights reserved. This information is not intended as a substitute for professional medical care. Always follow your healthcare professional's instructions. * Gabriel Singh - Brittaney Dumas RN - 06/18/2025 6:29 PM EDT Images from the original note were not included. 19722pp Tratamiento para contracciones ventriculares prematuras (CVP) Las [...] Confusi??n. Last Reviewed Date: 2024 00:00:00 ?? 4506-1989 The [employer], [employer]. All rights reserved. This information is not intended as a substitute for professional medical care. Always follow your healthcare professional's instructions. * Gabriel Singh - Brittaney Dumas RN - 06/18/2025 6:29 PM EDT Images from the original note were not included. [id number] C??mo comprender las contracciones ventriculares prematuras (CVP) [...] se??al activa partes cercanas del coraz??n contraer. Amalga permite que el coraz??n se comprima de [...] card??acos anteriores, el coraz??n expulsar?? muypoca mushtaq. Amalga provoca aria sensaci??n de pausa entre latidos. El siguiente latido card??aco suele ser m??s bea, ya que la pausa lo permite que el coraz??n descanse y se llene de mushtaq. Amalga lleva a aria sensaci??n de latido card??aco [...] port??til jameson unos d??as o incluso semanas. Amalga puede ayudar a diagnosticar los CVP que [...] im??genes del coraz??n. ? An??lisis de mushtaq. Amalga se hace para comprobar los electrolitos y concentraciones tiroideas. Last Reviewed Date: 2024 00:00:00 ?? 6789-8104 The [employer]. All rights reserved. This information is not intended as a substitute for professional medical care. Always follow your healthcare professional's instructions. * Gabriel WallaceTRISTAN - Brittaney Dumas RN - 06/18/2025 6:28 PM EDT Images from the original note were not included. 38680 Treatment for Premature Ventricular Contractions (PVCs) Premature [...] confusion Last Reviewed Date: 2024 00:00:00 ?? [id number] [employer]. All rights reserved. This information is not intended as a substitute for professional medical care. Always follow your healthcare professional's instructions. * Jelanimassimo Samantha - Brittaney Dumas RN - 06/18/2025 6:28 PM EDT Images from the original note were not included. 61219 Understanding Premature Ventricular Contractions (PVCs) Premature ventricular [...] to 2 weeks. ? Insertable (or implantable) stock chaser. This small device is implanted under the [...] levels. Last Reviewed Date: 2024 00:00:00 ?? 3745-2971 The [employer]. All rights reserved. This information is not [...] Plan Anticoagulation Plan Warfarin Pharmacist Managed?: No [facility] Warfarin Dosing Protocol Followed?: No Bridging Agent in Conjunction With Warfarin? : Yes Ordered Agents: Enoxaparin Bridging Agent Dose: 70mg BID INR Monitoring Frequency: Monitor INR daily Patient Education : Complete and documented Warfarin dosing and adjustment per CT surgery provider. Transitions of Care Outpatient provider managing warfarin after [facility] discharge: TBD - possibly clinic Recommended [...] Ongoing, Progressing Intervention: Promote Activity and Functional Mccone Flowsheets (Taken 06/18/202558) Activity Assistance Provided: assistance, 1 person Self-Care Promotion: independence encouraged Problem: Self-Care Deficit Goal: Improved Ability to Complete Activities of Daily Living Outcome: Ongoing, Progressing Intervention: Promote Activity and Functional Mccone Flowsheets (Taken 06/18/202558) Activity Assistance Provided: assistance, [...] from the original note were not included. [id number] Warfarin IMPORTANT WARNING: Warfarin may cause severe [...] doctor or pharmacist will give you the technical maintenance technician's patient information sheet (Medication Guide) when you begin treatment with warfarin and each time you refill your prescription. Read the information carefully and ask your doctor or pharmacist if you have any questions. You can also visit the Food and Drug Administration (FDA) website (https://www.fda.gov/downloads/Drugs/DrugSafety/qll845558.pdf) or the technical maintenance technician's website to obtain the Medication Guide. Talk [...] Echinacea, garlic, Ginkgo biloba, ginseng, goldenseal, and Chesnee's wort; omeprazole (Prilosec); famotidine (Pepcid AC); aspirin [...] amounts of vitamin K-containing food on a jmqw-ad-fxxc basis. Do not eat large amounts of [...] be awakened, immediately call emergency services at 585. Symptoms of overdose may include the following: [...] of all of the prescription and nonprescription (muyj-jrx-ivsnoid) medicines, vitamins, minerals, and dietary supplements you [...] or pharmacist about specific clinical use. The [place] [employer] represents that the information provided hereunder was formulated with a reasonable standard of care, and in conformity with professional standards in the field. The [place] [employer] makes no representations or warranties, express or implied, including, but not limited to, any implied warranty of merchantability and/or fitness for a particular purpose, with respect to such information and specifically disclaims all such warranties. Users are advised that decisions regarding drug therapy are complex medical decisions requiring the independent, informed decision of an appropriate health animal care technician, and the information is provided for informational purposes only. The entire monograph for a drug should be reviewed for a thorough understanding of the drug's actions, uses and side effects. The [place] [employer] does not endorse or recommend the use of any drug.The information is not a substitute for medical care. AHFS?? Patient Medication Information?. ?? Copyright, 2023. The [place] [employer]??, [address], [address], [place], [place]. All Rights Reserved. Duplication for commercial use must be authorized by [facility]. Selected Revisions: February 13, 2017. AHFS?? Patient Medication Information?. ?? Copyright, 2024 * [facility] - Sydni Munson RN - 06/17/2025 12:42 PM EDT Images from the original note were not included. 63815 Recovery From Heart Surgery: The First Few [...] stop Last Reviewed Date: 2024 00:00:00 ?? 5496-1873 The [employer]. All rights reserved. This information is not [...] from the original note were not included. 33561 After Heart Valve Surgery For the first [...] headache Last Reviewed Date: 2023 00:00:00 ?? [id number] The [employer]. All rights reserved. This information is not intended as a substitute for professional medical care. Always follow your healthcare professional's instructions. * Discharge Instr - Other Orders - Sydni Munson RN - 06/17/2025 12:39 PM EDT Please arrive 30 minutes early for your appointment with Dr. Clark Prior to your appointment, go to the radiology department on the 1st floor of the [facility] near [facility] for a chest x-ray. Then go [...] your incisions. Do NOT lift, push, or order puller 5 pounds for six weeks. Do [...] Sydni Munson CT Surgery Nurse Navigator at [phone] Friday through Friday 7am- 3:30pm [facility] [phone] after 3:30 pm, weekends and holidays - ask for the CT surgeon managed services consultant. * Progress Notes - Brooke Valdez PTA - 06/17/2025 11:58 AM EDT Physical Therapy Treatment Patient Name: Bradley Forrest Today's Date: 06/17/2025 Total Treatment Time: 39 min PT Discharge Recommendations: Home with assistance Equipment Recommended: Rollator Subjective The patient states, I am doing okay. Participants in Care Family/Caregiver Present: Yes Family/Caregiver: Spouse, Other (Specify) (sister and brother) Sales Service Technician: Not Applicable Presentation Oxygen: None (Room air) [...] sequencing. Bed Mobility Exam: Rolling/Turning Level of Mccone: Minimum assist (75% patient effort) Physical/Nonphysical Assist: Verbal Cues, Set-up required Bed Mobility Exam: Scooting/Bridging Level of Mccone: Minimum assist (75% patient's effort) (to scoot to edge of bed with cues to adhere to sternal precautions) Physical/Nonphysical Assist: Verbal Cues, Set-up required Bed Mobility Exam: Supine to Sit Level of Mccone: Minimum assist (75% patient's effort) Physical/Nonphysical Assist: Verbal Cues, Set-up required, Additional assist utilized for safety Bed Mobility Exam: Sit to Supine Level of Mccone: Minimum assist (75% patient's effort) Physical/Nonphysical Assist: Verbal Cues, Set-up required, Additional assist utilized for safety Transfers Transfer Intervention: Verbal cues provided for correct bilateral hand and foot placement during sit to stand transfers. Transfer Interventions: The patient stood at the sink for hygiene approximately 8-10 minutes with CGA of 1 person. Transfer Exam: Sit to stand Level of Mccone: Contact guard Physical/Nonphysical Assist: Verbal Cues, Set-up required Assistive Device: Rollator Transfer Exam: Stand to Sit Level of Mccone: Contact guard Physical/Nonphysical Assist: Verbal Cues, Set-up [...] No assist required prior to admission (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) Level of Mobility Ambulatory- community Mobility Mccone Independent gait without device History of Falls [...] Visitors Present Yes Spouse (sister and brother) Sales Service Technician (if applicable) OBJECTIVE PAIN Pain Score (0-10): [...] for toileting and grooming tasks. Level of Mccone Adaptive Equipment Utilized Comments Feeding Grooming SBA Standing sinkside stood times 8 minutes in bathroom. Bathing Upper Body Dressing Lower Body Dressing Sock Level of Assistance: Moderate assistance, Minimal verbal cues Toileting SBA Toilet IADLs Health Management Community Re-Entry BALANCE Postural Appearance INTERVENTIONS Level of Mccone Balance Support Comments Static Sit Standby assist [...] weight shifting to promote safety. Level of Mccone Physical/Non-physical Assist Adaptive Equipment Utilized Rolling/ Turning [...] Plan Anticoagulation Plan Warfarin Pharmacist Managed?: No [facility] Warfarin Dosing Protocol Followed?: No Bridging Agent in Conjunction With Warfarin? : Yes Ordered Agents: Enoxaparin Bridging Agent Dose: 70mg BID INR Monitoring Frequency: Monitor INR daily Patient Education : Complete and documented Warfarin dosing and adjustment per CT surgery provider. Transitions of Care Outpatient provider managing warfarin after [facility] discharge: TBD - possibly clinic Recommended date for outpatient INR assessment: TBD - of note, enoxparin copay $0 for 7 day supply Will continue to follow patient's clinical progress daily. Maria Esther Kent PharmD, ARLEEN, BCCCP, [facility] Critical Care Pharmacist - Cardiothoracic Surgery Contact via secure chat * Gabriel Singh - Maria Esther Kent PharmD - 06/17/2025 9:21 AM EDT Images from the original note were not included. Your Health Checklist: Taking Warfarin Safely - Video Follow this checklist to properly and safely take warfarin. To view the video go to this web address: [email or web address] Or, scan this QR code with your [...] the video go to this web address: https://bit.ly/0Y38aWi Or, scan this QR code with your smart phone ?? [facility] * Maria Esther [place] PharmD - 06/17/2025 9:21 AM EDT Images from the original note were not included. Warfarin: Your INR Goal - Video Understand what the INR test measures, and what your healthy INR level should be. To view the video go to this web address: https://bit.ly/2Eez2MI Or, scan this QR code with your [...] the video go to this web address: https://bit.ly/8QY5Qya Or, scan this QR code with your [...] Certain other vegetables and fruits, including asparagus, [place] sprouts, and kiwifruit ? Certain soy products, such as natto (a traditional Icelandic dish of fermented soybeans) Some vegetable oils [...] reduced-fat cheese, served with a whole grain Chinese muffin ? A grilled chicken sandwich on whole grain bread with raw spinach*, tomato slices, and mustard ? Oven-roasted fish served with steamed broccoli* and medley of whole grain pasta, carrots, onions,and mushrooms * Foods higher in vitamin K Last Reviewed Date: 2025 00:00:00 ?? [id number] The [employer]. All rights reserved. This information is not [...] the video go to this web address: https://bit.ly/8E6PTcE Or, scan this QR code with your smart phone ?? [facility] * [facility] - Maria Esther Kent, PharmTiffany - 06/17/2025 9:21 AM EDT Images from the original note were not included. [id number] Warfarin IMPORTANT WARNING: Warfarin may cause severe [...] doctor or pharmacist will give you the technical maintenance technician's patient information sheet (Medication Guide) when you begin treatment with warfarin and each time you refill your prescription. Read the information carefully and ask your doctor or pharmacist if you have any questions. You can also visit the Food and Drug Administration (FDA) website (https://www.fda.gov/downloads/Drugs/DrugSafety/jik428721.pdf) or the technical maintenance technician's website to obtain the Medication Guide. Talk [...] amounts of vitamin K-containing food on a zzuv-dh-uprl basis. Do not eat large amounts of [...] be awakened, immediately call emergency services at [phone]. Symptoms of overdose may include the following: [...] of all of the prescription and nonprescription (dimd-bsc-yrprjmy) medicines, vitamins, minerals, and dietary supplements you [...] or pharmacist about specific clinical use. The [place] [employer] represents that the information provided hereunder was formulated with a reasonable standard of care, and in conformity with professional standards in the field. The [place] [employer] makes no representations or warranties, express or implied, including, but not limited to, any implied warranty of merchantability and/or fitness for a particular purpose, with respect to such information and specifically disclaims all such warranties. Users are advised that decisions regarding drug therapy are complex medical decisions requiring the independent, informed decision of an appropriate health animal care technician, and the information is provided for informational purposes only. The entire monograph for a drug should be reviewed for a thorough understanding of the drug's actions, uses and side effects. The [place] [employer] does not endorse or recommend the use of any drug.The information is not a substitute for medical care. AHFS?? Patient Medication Information?. ?? Copyright, 2023. The [place] [employer]??, [address], [address], [place], [place]. All Rights Reserved. Duplication for commercial use must be authorized by [facility]. Selected Revisions: February 13, 2017. AHFS?? Patient [...] Ongoing, Progressing Intervention: Promote Activity and Functional Mccone Flowsheets (Taken 06/17/2025108) Activity Assistance Provided: assistance, 1 person Self-Care Promotion: independence encouraged Problem: Self-Care Deficit Goal: Improved Ability to Complete Activities of Daily Living Outcome: Ongoing, Progressing Intervention: Promote Activity and Functional Mccone Flowsheets (Taken 06/17/2025108) Activity Assistance Provided: assistance, [...] Note Bradley Forrest 69 y.o. male CSN: [id number] Admission: 06/14/2025 5:18 AM Primary Problem: Severe [...] Problem(s): Weaning from mechanically assisted ventilation initiated ([facility]) (Ddunxrkc15/20/2025) Arrived intubated and sedated post-op - fast [...] post median sternotomy. Interval removal of the [place]-Ganzcatheter, right IJ sheath remains in place with tip in the mid to distal SVC. No pneumothorax or pleural effusions. Ongoing interstitial edema. - Impression - Interval removal of the [place]-Shira catheter, the right IJ sheath remains in [...] No assist required prior to admission (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) Level of Mobility Ambulatory- community Mobility Mccone Independent gait without device History of Falls [...] tube removed this am before PT treatment. Sales Service Technician (if applicable) OBJECTIVE & INTERVENTIONS PAIN Pain [...] ACTIVITY Treatment Minutes 24 TRANSFERS Level of Mccone Physical/Non- physical Assist Adaptive Equipment Utilized Sit to Stand Contact guard Verbal Cues, Additional assist utilized for safety, 1 person + 1 person to manage equipment (verbal cuing for sternal precautions) Stand to sit Contact guard Verbal Cues, 1 person + 1 person to manage equipment Interventions BALANCE Postural Appearance Posture: Rounded shoulders Level of Mccone Balance Support Interventions Static Sit Standby assist Feet supported Dynamic Sit Contact guard Feet supported Static Stand Standby assist Right upper extremity support, Left upper extremity support Pt with mild dizziness when coming to stand from sitting which subsided with roughly 30 seconds of static standing Dynamic Stand Standby assist Right upper extremity support, Left upper extremity support AMBULATION Level of Mccone Distance Adaptive Equipment Utilized Ambulation Standby assist, [...] Plan Anticoagulation Plan Warfarin Pharmacist Managed?: No [facility] Warfarin Dosing Protocol Followed?: No Reason for Protocol Departure: CT Surgery Bridging Agent in Conjunction With Warfarin? : Yes Ordered Agents: Enoxaparin Bridging Agent Dose: Enoxaparin 70mg bid to start 06/16 pm INR Monitoring Frequency: Monitor INR daily Patient Education : Incomplete Warfarin dosing and adjustment per CT surgery provider. Transitions of Care Outpatient provider managing warfarin after [facility] discharge: TBD Recommended date for outpatient INR assessment: TBD Will continue to follow patient's clinical progress daily. Sy Fernández PharmD PGY-2 Cardiology Heel Seat Laster Available via Secure Chat * Progress Notes [...] clothing lightweight bedding Taken 06/14/20251717 by Agueda Wlof RN Infection Management: aseptic technique maintained Problem: [...] Ongoing, Progressing Intervention: Promote Activity and Functional Mccone Flowsheets Taken 06/15/20251699 by Bony Thomas RN [...] Ongoing, Progressing Intervention: Promote Activity and Functional Mccone Flowsheets Taken 06/15/2025 1700 by Bony Thomas RN Activity Assistance Provided: assistance, stand-by Taken 06/14/20252154 by Svetlana Reilly, RN Self-Care Promotion: independence encouraged * Consults - Nat Singletary RD - 06/15/2025 2:23 PM EDTAssociated Order(s): IP CONSULT TO NUTRITION SERVICES Adult Nutrition Evaluation Note Bradley Forrest 69 y.o. 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) GI Symptoms: Nausea, Vomiting Edema: Generalized [...] 30.07 Weight Evaluation: Obese-Class 1 (BMI 30-34.9) [place] Body Weight (kg): 67.3 Percent [place] Body Weight: 130 Adjusted Body Weight (kg): 72.4 Estimated Needs: Kcal/ K-28 Kcal Provided: 6229-8501 Metabolic Cart Study Results: Current Nutrition Intake: Diet Order: Adult Diet Diet Texture: Clear liquid Adult Carbohydrate Restriction: Consistent CHO 2 (1430-8093 Venkat, 80 g/meal) Fat Restriction: Cardiac Percent Meals Eaten (%): establishing Diet Experience and Nutrition History: Diet Education Provided: Will monitor Pertinent home medications: Jew needs: Nutrition Focused Physical Exam: Physical exam performed on (date): 06/15 Temples (muscles): None Clavicle (muscle): None Shoulder (muscle): None Orbital (fat): None Triceps (fat): None Energy Intake: reported adequate [employer] OFFICER Weight Loss: denies Assessment of Malnutrition: [...] Note Bradley Forrest 69 y.o. male CSN: [id number] Admission: 06/14/2025 5:18 AM Primary Problem: Severe aortic regurgitation Electrical Electronics Technician reviewed chart and spoke with the patient at bedside to complete this Initial Case Management Assessment. PCP: Kamran Singh MD Emergency Contact: Extended Emergency Contact Information Primary Emergency Contact: Naheed Forrest [address]: [address] [place] [address] [address] [address] [place] Relation: Spouse Insurance: Primary Visit Coverage Payer Plan Sponsor Code Group Number Group Name MARY HERNANDEZ [facility] [id number] Primary Visit Coverage Subscriber Subscriber ID Subscriber Name Subscriber SSN Subscriber Address [id number] Bradley Forrest [id number] [id number] Secondary Visit Coverage Payer Plan Sponsor Code Group Number Group Name MEDICARE MEDICARE A & B Secondary Visit Coverage Subscriber Subscriber ID Subscriber Name Subscriber SSN Subscriber Address [id number] Bradley Forrest [id number] [id number] Patient information: Primary Caregiver: Self Support System: Immediate family Daily Living Activities: Functional Status: Independent Living Arrangements: Spouse/Significant other Type of Residence: Private residence, Single Level [address] [place] [address] Current DME: Equipment Currently Used at Home: [...] DME Provider: n/a Living Will/Advance Directive/Power of Knuckle Strap Sewer /Guardian: Unable to assess: No Have you [...] prior HH/O2/HD/Abx. PCP is Kamran Singh. Has [employer] insurance and uses [facility]. Family to transport and assist as [...] Plan Anticoagulation Plan Warfarin Pharmacist Managed?: No [facility] Warfarin Dosing Protocol Followed?: No Reason for Protocol Departure: CT Surgery Bridging Agent in Conjunction With Warfarin? : No INR Monitoring Frequency: Monitor INR daily Patient Education : Incomplete Warfarin dosing and adjustment per CT surgery provider. Transitions of Care Outpatient provider managing warfarin after [facility] discharge: TBD Recommended date for outpatient INR assessment: TBD Will continue to follow patient's clinical progress daily. Sy Fernández, PharmTiffany PGY-2 Cardiology Heel Seat Laster Available via Secure Chat * Assessment & [...] Problem(s): Weaning from mechanically assisted ventilation initiated ([facility]) (Rldceiph42/20/2025) Arrived intubated and sedated post-op - fast [...] Weaning from mechanically assisted ventilation initiated (CMS/HCC) (Zlvpyjpy77/20/2025) Arrived intubated and sedated post-op - fast [...] 06/15/2025 Weaning from mechanically assisted ventilation initiated ([facility]) 06/14/2025 Diabetes 05/05/2025 Benign prostatic hyperplasia 05/05/2025 CAD (coronary artery disease) 04/14/2025 History of coronary angioplasty with insertion of stent 04/14/2025 Ascending aortic aneurysm ([facility]) 04/14/2025 Aortic valve regurgitation 04/14/2025 BMI [...] No assist required prior to admission (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) Level of Mobility: Ambulatory- community Mobility Mccone: Independent gait without device History of Falls: [...] Mobility Exam: Sit to Supine Level of Mccone: Maximum assist (25% patient's effort) Physical/Nonphysical Assist: Verbal Cues, Maximal cues, Additional assist utilized for safety Transfers Transfer Exam: Sit to stand Level of Mccone: Moderate assist (50% patient's effort) Physical/Nonphysical Assist: Verbal Cues, Moderate cues, Additional assist utilized for safety Assistive Device: Rollator Transfer Exam: Stand to Sit Level of Mccone: Minimum assist (75% patient's effort) Physical/Nonphysical Assist: [...] activity. Standardized Assessments Standardized Assessments Standardized Assessments: [facility] 6-Clicks Mobility Assessment [facility] 6-Clicks Mobility Assessment Difficulty patient has turning [...] 3-5 steps with a railing?: A little [facility] 6-Clicks Mobility Assessment Total : 16 No [...] 06/15/2025 Weaning from mechanically assisted ventilation initiated ([facility]) 06/14/2025 Diabetes 05/05/2025 Benign prostatic hyperplasia 05/05/2025 CAD (coronary artery disease) 04/14/2025 History of coronary angioplasty with insertion of stent 04/14/2025 Ascending aortic aneurysm ([facility]) 04/14/2025 Aortic valve regurgitation 04/14/2025 BMI [...] No assist required prior to admission (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) Level of Mobility: Ambulatory- community Mobility Mccone: Independent gait without device History of Falls: [...] Mobility Exam: Sit to Supine Level of Mccone: Maximum assist (25% patient's effort) Physical/Nonphysical Assist: Verbal Cues, Maximal cues, Additional assist utilized for safety Transfers Transfer Exam: Sit to stand Level of Mccone: Moderate assist (50% patient's effort) Physical/Nonphysical Assist: Verbal Cues, Moderate cues, Additional assist utilized for safety Assistive Device: Rollator Transfer Exam: Stand to Sit Level of Mccone: Minimum assist (75% patient's effort) Physical/Nonphysical Assist: [...] continued education to improve carryover. Standardized Assessments [facility] 6-Click Daily Activities Help from Other: Don/Doff Regular Lower Body Clothings: A lot Help From Other: Bathing: A lot Help From Other: Toileting: A lot Help From Other: Don/Doff Upper Body Clothings: Little Help From Other: Grooming: Little Help From Other: Eating Meals: None [facility] 6 Click - Daily Activities Score: 16 [...] Right 06/14/25 0832 Internal jugular 1 GCS: Clinton Coma Scale Score: 15 Review of Systems [...] of NG tube. Right internal jugular approach [place]-Shira catheter and mediastinal drain in unchanged position. [...] Weaning from mechanically assisted ventilation initiated (CMS/HCC) (Dondpolq51/20/2025) Arrived intubated and sedated post-op - fast [...] on pump was 2-hours and 50-minutes. Post-operative USLTANA displayed: Mildlydilated LV with no LVH. Mildly impaired LV systolic function with a LVEF 50%. Last dose of Shola was at 1200. Patient received a parasternal block for analgesia prior to leaving the OR. [facility] services were consulted for management of [...] pressure support 8/5 Edited by: Balta Washington, FIREFIGHTER, DNP at 06/14/2025 7904 Lines/Drains/Tubes: Patient Lines/Drains/Airways Status Active Active LDAs [...] Ongoing, Progressing Intervention: Promote Activity and Functional Mccone Flowsheets (Taken 06/14/20252154) Activity Assistance Provided: assistance, [...] WRITTEN ON 06/15/2025 1:41 PM BY BELLE SMIHT MD - s/p Aortic Valve Replacement 06/14 [...] Problem(s): Weaning from mechanically assisted ventilation initiated ([facility]) (Bkhwntyc25/20/2025) Arrived intubated and sedated post-op - fast [...] for analgesia prior to leaving the OR. [facility] services were consulted for management of [...] 06/14/25 1327 Mediastinal less than 1 NG/OG [place] Sump Orogastric 18 Fr Center mouth 06/14/25 [...] 2 tablets by mouth every morning. Under [employer] law, monthly prescriptions (30 days) can be refilled at 25 days and three-month prescriptions (90 days) at 80 days. Please contact the insurance company with questions if refills are denied. (Patient taking differently: Take 2 tablets by mouth every 4 hours as needed. Under [employer] law, monthly prescriptions (30 days) can be [...] Saint Jose mechanical prosthesis. Date: 06/14/25 Location: [facility] Name: Bradley Forrest, : 1955, Diagnoses: Pre-op Diagnosis Severe aortic regurgitation Post-op Diagnosis Severe aortic regurgitation Coronary artery disease due to calcified coronary lesion History of coronary angioplasty with insertion of stent Left ventricular enlargement Procedure(s): Median sternotomy, aortic valve replacement using a 25 mm [place] mechanical prosthesis. Attending Surgeon(s): * Phillip Clark - Primary Medical Concierge(s): * Turner Pablo MD - Fellow Anesthesia: General ASA: IV Blood Administration: Blood Product Administration History None Estimated Blood Loss: 150 mL Drains: Chest Tube Mediastinal 36 Fr (Active) Function -20 cm H2O 06/14/25 1600 Chest Tube Air Leak No 06/14/25 1600 Patency Intervention Tip/tilt 06/14/25 1600 Drainage Description Dark red 06/14/25 1600 NG/OG [place] Sump Orogastric 18 Fr Center mouth (Active) Urethral Catheter Temperature probe 16 Fr. (Active) Implants Type Name Action Serial No. GRAFT PTCH [id number] FELT - [id number] Implanted VALVE ATRIAL 25MM ROTATABL CUF STD PTFE - [id number] - [id number] Implanted [id number] Specimen: Specimens ID Source Frozen? 1 Heart [...] stenting of his coronaries. In addition his physician pediatrician, Jd Duvall, had done an echocardiogram which [...] was induced, monitoring lines were placed, a [place]-Shira catheter was floated into position and a [...] Prolene and a tack seal. One 36 Kazakh chest tube was placed. Chest tubes and pacing wires were secured to the anterior abdominal wall. The sternum was reapproximated with #7 [id number] stainless steel wires, the fasciawas closed with [...] 2 tablets by mouth every morning. Under [employer] law, monthly prescriptions (30 days) can be refilled at 25 days and three-month prescriptions (90 days) at 80 days. Please contact the insurance company with questions if refills are denied. Patient taking differently: Take 2 tablets by mouth every 4 hours as needed. Under [employer] law, monthly prescriptions (30 days) can be [...] Office Visit [facility] [address], [address] [place] [address] Phillip Clark MD [address] [place] [address] Pending Results Name Type Priority [...] PANEL, PLASMA Routine 06/16/2025 5:35 PM EDT [facility], E/M 30-74 MINUTES Routine 06/16/2025 [...] PEP THERAPY Routine 06/15/2025 12:00 PM EDT [facility], E/M 30-74 MINUTES Routine 06/15/2025 [...] 1 VIEW Routine 06/15/2025 2:53 AM EDT [facility], ADDL 30 MIN Routine 06/15/2025 12:21 AM EDT Other secondary hypertension [facility], ADDL 30 MIN Routine 06/15/2025 [...] PANEL, ARTERIAL Routine 06/14/2025 6:47 PM EDT [place] [facility], E/M 30-74 MINUTES Routine 06/14/2025 [...] UNSOLICITED RESULTS Routine 06/14/2025 8:13 AM EDT [place] -AORT GRF W/CARD BYP F/AORTIC DISSECTION 06/14/2025 [...] - 99 mg/dL 06/20/2025 2:47 AM EDT [facility] BUN, Plasma 22 8 - 23 mg/dL 06/20/2025 2:47 AM EDT [facility] Creatinine, Plasma 0.85 0.70 - 1.20 mg/dL 06/20/2025 2:47 AM EDT [facility] BUN/Creatinine Ratio 26 06/20/2025 2:47 AM EDT [facility] Sodium, Plasma 131(L) 136 - 145 mmol/L 06/20/2025 2:47 AM EDT [facility] Potassium, Plasma 4.0 3.6 - 4.9 mmol/L 06/20/2025 2:47 AM EDT [facility] Chloride, Plasma 102 97 - 107 mmol/L 06/20/2025 2:47 AM EDT [facility] CO2, Plasma 24 22 - 29 mmol/L 06/20/2025 2:47 AM EDT [facility] Anion Gap 5(L) 6 - 16 mmol/L 06/20/2025 2:47 AM EDT [facility] Total Calcium, Plasma 7.9(L) 8.9 - 10.2 mg/dL 06/20/2025 2:47 AM EDT [facility] eGFRcr 94.1 mL/min/1.7 3m*2 06/20/2025 2:47 AM EDT [facility] Comment:Reported eGFRcr in m L/min/1.73m2 is based the CKD-EPI 2020 equation that does not use a race coefficient. Blood Venous blood specimen / Unknown Venipuncture / Unknown 06/20/2025 1:52 AM EDT 06/20/2025 1:59 AM EDT Phillip Clark MD LAB BLOOD ORDERABLES Final R esult [facility] [address] [place] [address] * Phosphorus (06/20/2025 1:52 AM EDT) Phosphorus, Plasma 2.8 2.5 - 4.5 mg/dL 06/20/2025 2:23 AM EDT [facility] Blood Venous blood specimen / Unknown Venipuncture / Unknown 06/20/2025 1:52 AM EDT 06/20/2025 1:59 AM EDT Phillip Clark MD LAB BLOOD ORDERABLES Final R esult Performing Organization Address [facility]/ZIP Co de Phone Number [facility] [address] [place] [address] * (ABNORMAL) Protime-INR (06/20/2025 1:52 AM EDT) Prothrombin Time 30.4(H) 12.0 - 14.3 sec LAB COAGULATION METHOD 06/20/2025 2:29 AM EDT [facility] INR 2.9(H) 0.9 - 1.1 LAB COAGULATION METHOD 06/20/2025 2:29 AM EDT [facility] Blood Venous blood specimen / Unknown Venipuncture / Unknown 06/20/2025 1:52 AM EDT 06/20/2025 1:59 AM EDT Narrative [facility] - 06/20/2025 2:29 AM [...] ORDERABLES Final R esult Performing Organization Address [facility] Co de Phone Number [facility] [address] [place] [address] * Magnesium (06/20/2025 1:52 AM EDT) Pathologist [facility] Magnesium, Plasma 2.2 1.9 - 2.4 mg/dL 06/20/2025 2:23 AM EDT [facility] Blood Venous blood specimen / Unknown Venipuncture / Unknown 06/20/2025 1:52 AM EDT 06/20/2025 1:59 AM EDT Phillip Clark MD LAB BLOOD ORDERABLES Final R esult Performing Organization Address City/[facility]/ZIP Co de Phone Number [facility] [address] [place] [address] * (ABNORMAL) CBC (06/20/2025 1:52 AM EDT) WBC Count 6.95 3.70 - 10.30 10*3/uL LAB HEMATOLOGY METHOD 06/20/2025 2:07 AM EDT [facility] RBC Count 3.73(L) 4.60 - 6.10 10*6/uL LAB HEMATOLOGY METHOD 06/20/2025 2:07 AM EDT [facility] HGB 10.4(L) 13.7 - 17.5 g/dL LAB HEMATOLOGY METHOD 06/20/2025 2:07 AM EDT [facility] HCT 31.9(L) 40.0 - 51.0 % LAB HEMATOLOGY METHOD 06/20/2025 2:07 AM EDT [facility] Platelet Count 187 155 - 369 10*3/uL LAB HEMATOLOGY METHOD 06/20/2025 2:07 AM EDT [facility] MCV 86 79 - 98 fL LAB HEMATOLOGY METHOD 06/20/2025 2:07 AM EDT [facility] MCH 27.9 26.0 - 32.0 pg LAB HEMATOLOGY METHOD 06/20/2025 2:07 AM EDT [facility] MCHC 32.6 30.7 - 35.5 g/dL LAB HEMATOLOGY METHOD 06/20/2025 2:07 AM EDT [facility] RDW 14.8(H) 11.5 - 14.5 % LAB HEMATOLOGY METHOD 06/20/2025 2:07 AM EDT [facility] MPV 10.2 8.8 - 12.5 fL LAB HEMATOLOGY METHOD 06/20/2025 2:07 AM EDT [facility] nRBC 0.0 <=0.0 per 100 WBCs LAB HEMATOLOGY METHOD 06/20/2025 2:07 AM EDT [facility] Blood Venous blood specimen / Unknown Venipuncture / Unknown 06/20/2025 1:52 AM EDT 06/20/2025 1:59 AM EDT us Phillip Clark MD LAB BLOOD ORDERABLES Final R esult [facility] [address] [place] [address] * PERIPHERAL IV ([employer]) (06/20/2025 1:47 [...] ECG Atrial Rate 85 BPM MUSE ECG [place] Interval 176 ms MUSE ECG QRSD Interval 110 ms MUSE ECG QT Interval 402 ms MUSE ECG QTC Interval 478 ms MUSE ECG P [place] 43 degrees MUSE ECG R [place] -30 degrees MUSE ECG T Wave [place] 36 degrees MUSE ECG Diagnosis Poor data quality, interpretation may be adversely affected MUSE ECG Diagnosis Sinus rhythm with premature supraventricular complexes and with occasional premature ventricular complexes MUSE ECG Diagnosis Left axis deviation MUSE ECG Diagnosis Poor R-wave progression MUSE ECG Diagnosis Abnormal ECG MUSE ECG Diagnosis Recommend repeat ECG MUSE ECG Diagnosis MUSE ECG Diagnosis Confirmed by Aman Coe ([id number]) on 06/19/2025 1:33:10 PM MUSE ECG 06/19/2025 12:4 9 PM EDT 06/19/2025 1:33 PM EDT us Barbara MARIE ECG ORDERABLES Final Resul t MUSE ECG * (ABNORMAL) Basic metabolic panel (06/19/2025 2:38 AM EDT) Pathologist [facility] Glucose, Plasma 102(H) 74 - 99 mg/dL 06/19/2025 4:10 AM EDT [facility] BUN, Plasma 25(H) 8 - 23 mg/dL 06/19/2025 4:10 AM EDT [facility] Creatinine, Plasma 1.02 0.70 - 1.20 mg/dL 06/19/2025 4:10 AM EDT [facility] BUN/Creatinine Ratio 25 06/19/2025 4:10 AM EDT [facility] Sodium, Plasma 134(L) 136 - 145 mmol/L 06/19/2025 4:10 AM EDT [facility] Potassium, Plasma 4.6 3.6 - 4.9 mmol/L 06/19/2025 4:10 AM EDT [facility] Comment:Hemolyzed - Potassiu m may be falsely elevated by approximately 0.4-0.7 mmol/L. Chloride, Plasma 102 97 - 107 mmol/L 06/19/2025 4:10 AM EDT [facility] CO2, Plasma 23 22 - 29 mmol/L 06/19/2025 4:10 AM EDT [facility] Anion Gap 9 6 - 16 mmol/L 06/19/2025 4:10 AM EDT [facility] Total Calcium, Plasma 8.4(L) 8.9 - 10.2 mg/dL 06/19/2025 4:10 AM EDT [facility] eGFRcr 79.6 mL/min/1.7 3m*2 06/19/2025 4:10 AM EDT [facility] Comment:Reported eGFRcr in m L/min/1.73m2 is based the CKD-EPI 2020 equation that does not use a race coefficient. Blood Venous blood specimen / Unknown Venipuncture / Unknown 06/19/2025 2:38 AM EDT 06/19/2025 2:54 AM EDT us Phillip Clark MD LAB BLOOD ORDERABLES Final R esult [facility] [address] [place] [address] * Phosphorus (06/19/2025 2:38 AM EDT) Phosphorus, Plasma 3.6 2.5 - 4.5 mg/dL 06/19/2025 4:10 AM EDT [facility] Blood Venous blood specimen / Unknown Venipuncture / Unknown 06/19/2025 2:38 AM EDT 06/19/2025 2:54 AM EDT Phillip Clark MD LAB BLOOD ORDERABLES Final R esult Performing Organization Address City/[facility]/ZIP Co de Phone Number [facility] [address] [place] [address] * (ABNORMAL) Protime-INR (06/19/2025 2:38 AM EDT) Prothrombin Time 26.3(H) 12.0 - 14.3 sec LAB COAGULATION METHOD 06/19/2025 3:09 AM EDT [facility] INR 2.4(H) 0.9 - 1.1 LAB COAGULATION METHOD 06/19/2025 3:09 AM EDT [facility] Blood Venous blood specimen / Unknown Venipuncture / Unknown 06/19/2025 2:38 AM EDT 06/19/2025 2:54 AM EDT Narrative [facility] - 06/19/2025 3:09 AM [...] esult [facility] [address] [place] [address] * Magnesium (06/19/2025 2:38 AM EDT) Magnesium, Plasma 2.4 1.9 - 2.4 mg/dL 06/19/2025 4:10 AM EDT [facility] Blood Venous blood specimen / Unknown Venipuncture / Unknown 06/19/2025 2:38 AM EDT 06/19/2025 2:54 AM EDT us Phillip Clark MD LAB BLOOD ORDERABLES Final R esult [facility] [address] [place] [address] * (ABNORMAL) CBC (06/19/2025 2:38 AM EDT) WBC Count 6.94 3.70 - 10.30 10*3/uL LAB HEMATOLOGY METHOD 06/19/2025 3:17 AM EDT [facility] RBC Count 4.12(L) 4.60 - 6.10 10*6/uL LAB HEMATOLOGY METHOD 06/19/2025 3:17 AM EDT [facility] HGB 11.5(L) 13.7 - 17.5 g/dL LAB HEMATOLOGY METHOD 06/19/2025 3:17 AM EDT [facility] HCT 35.7(L) 40.0 - 51.0 % LAB HEMATOLOGY METHOD 06/19/2025 3:17 AM EDT [facility] Platelet Count 165 155 - 369 10*3/uL LAB HEMATOLOGY METHOD 06/19/2025 3:17 AM EDT [facility] MCV 87 79 - 98 fL LAB HEMATOLOGY METHOD 06/19/2025 3:17 AM EDT [facility] MCH 27.9 26.0 - 32.0 pg LAB HEMATOLOGY METHOD 06/19/2025 3:17 AM EDT [facility] MCHC 32.2 30.7 - 35.5 g/dL LAB HEMATOLOGY METHOD 06/19/2025 3:17 AM EDT [facility] RDW 14.8(H) 11.5 - 14.5 % LAB HEMATOLOGY METHOD 06/19/2025 3:17 AM EDT [facility] MPV 10.6 8.8 - 12.5 fL LAB HEMATOLOGY METHOD 06/19/2025 3:17 AM EDT [facility] nRBC 0.0 <=0.0 per 100 WBCs LAB HEMATOLOGY METHOD 06/19/2025 3:17 AM EDT [facility] Blood Venous blood specimen / Unknown Venipuncture / Unknown 06/19/2025 2:38 AM EDT 06/19/2025 2:54 AM EDT us Phillip Clark MD LAB BLOOD ORDERABLES Final R esult [facility] [address] [place] [address] * XR Chest 1 View (06/19/2025 1:50 [...] 8:12 AM Final report signed by Kamran Arellnao MD on 06/18/2025 8:13 AM us Phillip Clark MD IMG XR PROCEDURES Final Resu lt * (ABNORMAL) Basic metabolic panel (06/18/2025 1:43 AM EDT) Glucose, Plasma 93 74 - 99 mg/dL 06/18/2025 2:17 AM EDT [facility] BUN, Plasma 18 8 - 23 mg/dL 06/18/2025 2:17 AM EDT [facility] Creatinine, Plasma 0.82 0.70 - 1.20 mg/dL 06/18/2025 2:17 AM EDT [facility] BUN/Creatinine Ratio 22 06/18/2025 2:17 AM EDT [facility] Sodium, Plasma 134(L) 136 - 145 mmol/L 06/18/2025 2:17 AM EDT [facility] Potassium, Plasma 3.7 3.6 - 4.9 mmol/L 06/18/2025 2:17 AM EDT [facility] Chloride, Plasma 100 97 - 107 mmol/L 06/18/2025 2:17 AM EDT [facility] CO2, Plasma 26 22 - 29 mmol/L 06/18/2025 2:17 AM EDT [facility] Anion Gap 8 6 - 16 mmol/L 06/18/2025 2:17 AM EDT [facility] Total Calcium, Plasma 8.1(L) 8.9 - 10.2 mg/dL 06/18/2025 2:17 AM EDT [facility] eGFRcr 95.1 mL/min/1.7 3m*2 06/18/2025 2:17 AM EDT [facility] Comment:Reported eGFRcr in m L/min/1.73m2 is based the CKD-EPI 2020 equation that does not use a race coefficient. Blood Blood sample taken from central line / Unknown Venipuncture / Unknown 06/18/2025 1:43 AM EDT 06/18/2025 1:48 AM EDT us Phillip Clark MD LAB BLOOD ORDERABLES Final R esult Performing Organization Address City/[facility] Co de Phone Number [facility] [address] [place] [address] * Phosphorus (06/18/2025 1:43 AM EDT) Phosphorus, Plasma 2.6 2.5 - 4.5 mg/dL 06/18/2025 2:17 AM EDT [facility] Blood Blood sample taken from central line / Unknown Venipuncture / Unknown 06/18/2025 1:43 AM EDT 06/18/2025 1:48 AM EDT us Phillip Clark MD LAB BLOOD ORDERABLES Final R esult Performing Organization Address City/[facility]/ZIP Co de Phone Number [facility] [address] [place] [address] * (ABNORMAL) Protime-INR (06/18/2025 1:43 AM EDT) Prothrombin Time 25.2(H) 12.0 - 14.3 sec LAB COAGULATION METHOD 06/18/2025 2:07 AM EDT [facility] INR 2.3(H) 0.9 - 1.1 LAB COAGULATION METHOD 06/18/2025 2:07 AM EDT [facility] Blood Blood sample taken from central line / Unknown Venipuncture / Unknown 06/18/2025 1:43 AM EDT 06/18/2025 1:48 AM EDT Narrative [facility] - 06/18/2025 2:07 AM [...] ORDERABLES Final R esult Performing Organization Address City/[facility]/ZIP Co de Phone Number [facility] [address] [place] [address] * Magnesium (06/18/2025 1:43 AM EDT) Pathologist [facility] Magnesium, Plasma 2.3 1.9 - 2.4 mg/dL 06/18/2025 2:17 AM EDT [facility] Blood Blood sample taken from central line / Unknown Venipuncture / Unknown 06/18/2025 1:43 AM EDT 06/18/2025 1:48 AM EDT Phillip Clark MD LAB BLOOD ORDERABLES Final R esult [facility] [address] [place] [address] * (ABNORMAL) CBC (06/18/2025 1:43 AM EDT) WBC Count 8.51 3.70 - 10.30 10*3/uL LAB HEMATOLOGY METHOD 06/18/2025 1:54 AM EDT [facility] RBC Count 3.67(L) 4.60 - 6.10 10*6/uL LAB HEMATOLOGY METHOD 06/18/2025 1:54 AM EDT [facility] HGB 10.6(L) 13.7 - 17.5 g/dL LAB HEMATOLOGY METHOD 06/18/2025 1:54 AM EDT [facility] HCT 31.2(L) 40.0 - 51.0 % LAB HEMATOLOGY METHOD 06/18/2025 1:54 AM EDT [facility] Platelet Count 121(L) 155 - 369 10*3/uL LAB HEMATOLOGY METHOD 06/18/2025 1:54 AM EDT [facility] MCV 85 79 - 98 fL LAB HEMATOLOGY METHOD 06/18/2025 1:54 AM EDT [facility] MCH 28.9 26.0 - 32.0 pg LAB HEMATOLOGY METHOD 06/18/2025 1:54 AM EDT [facility] MCHC 34.0 30.7 - 35.5 g/dL LAB HEMATOLOGY METHOD 06/18/2025 1:54 AM EDT [facility] RDW 14.7(H) 11.5 - 14.5 % LAB HEMATOLOGY METHOD 06/18/2025 1:54 AM EDT [facility] MPV 10.4 8.8 - 12.5 fL LAB HEMATOLOGY METHOD 06/18/2025 1:54 AM EDT [facility] nRBC 0.0 <=0.0 per 100 WBCs LAB HEMATOLOGY METHOD 06/18/2025 1:54 AM EDT [facility] Blood Blood sample taken from central line / Unknown Venipuncture / Unknown 06/18/2025 1:43 AM EDT 06/18/2025 1:48 AM EDT us Phillip Clark MD LAB BLOOD ORDERABLES Final R esult [facility] [address] [place] [address] * XR Chest 1 View (06/17/2025 3:14 [...] - 99 mg/dL 06/17/2025 12:54 AM EDT [facility] BUN, Plasma 15 8 - 23 mg/dL 06/17/2025 12:54 AM EDT [facility] Creatinine, Plasma 0.81 0.70 - 1.20 mg/dL 06/17/2025 12:54 AM EDT [facility] BUN/Creatinine Ratio 19 06/17/2025 12:54 AM EDT [facility] Sodium, Plasma 133(L) 136 - 145 mmol/L 06/17/2025 12:54 AM EDT [facility] Potassium, Plasma 3.9 3.6 - 4.9 mmol/L 06/17/2025 12:54 AM EDT [facility] Chloride, Plasma 98 97 - 107 mmol/L 06/17/2025 12:54 AM EDT [facility] CO2, Plasma 25 22 - 29 mmol/L 06/17/2025 12:54 AM EDT [facility] Anion Gap 10 6 - 16 mmol/L 06/17/2025 12:54 AM EDT [facility] Total Calcium, Plasma 8.1(L) 8.9 - 10.2 mg/dL 06/17/2025 12:54 AM EDT [facility] eGFRcr 95.4 mL/min/1.7 3m*2 06/17/2025 12:54 AM EDT [facility] Comment:Reported eGFRcr in m L/min/1.73m2 is based the CKD-EPI 2020 equation that does not use a race coefficient. Blood Blood sample taken from central line / Unknown Venipuncture / Unknown 06/17/2025 12:17 AM EDT 06/17/2025 12:24 AM EDT us Phillip Clark MD LAB BLOOD ORDERABLES Final R esult [facility] [address] [place] [address] * Phosphorus (06/17/2025 12:17 AM EDT) Phosphorus, Plasma 2.9 2.5 - 4.5 mg/dL 06/17/2025 12:54 AM EDT [facility] Blood Blood sample taken from central line / Unknown Venipuncture / Unknown 06/17/2025 12:17 AM EDT 06/17/2025 12:24 AM EDT Phillip Clark MD LAB BLOOD ORDERABLES Final R esult Performing Organization Address City/[facility] Co de Phone Number [facility] [address] [place] [address] * (ABNORMAL) Protime-INR (06/17/2025 12:17 AM EDT) Prothrombin Time 18.7(H) 12.0 - 14.3 sec LAB COAGULATION METHOD 06/17/2025 1:16 AM EDT [facility] INR 1.5(H) 0.9 - 1.1 LAB COAGULATION METHOD 06/17/2025 1:16 AM EDT [facility] Blood Blood sample taken from central line / Unknown Venipuncture / Unknown 06/17/2025 12:17 AM EDT 06/17/2025 12:24 AM EDT Narrative [facility] - 06/17/2025 1:16 AM [...] ORDERABLES Final R esult Performing Organization Address City/[facility]/ZIP Co de Phone Number [facility] [address] [place] [address] * Magnesium (06/17/2025 12:17 AM EDT) Magnesium, Plasma 2.3 1.9 - 2.4 mg/dL 06/17/2025 12:54 AM EDT [facility] Blood Blood sample taken from central line / Unknown Venipuncture / Unknown 06/17/2025 12:17 AM EDT 06/17/2025 12:24 AM EDT us Phillip Clark MD LAB BLOOD ORDERABLES Final R esult [facility] [address] [place] [address] * (ABNORMAL) CBC (06/17/2025 12:17 AM EDT) WBC Count 10.83(H) 3.70 - 10.30 10*3/uL LAB HEMATOLOGY METHOD 06/17/2025 12:32 AM EDT [facility] RBC Count 4.08(L) 4.60 - 6.10 10*6/uL LAB HEMATOLOGY METHOD 06/17/2025 12:32 AM EDT [facility] HGB 11.3(L) 13.7 - 17.5 g/dL LAB HEMATOLOGY METHOD 06/17/2025 12:32 AM EDT [facility] HCT 35.0(L) 40.0 - 51.0 % LAB HEMATOLOGY METHOD 06/17/2025 12:32 AM EDT [facility] Platelet Count 116(L) 155 - 369 10*3/uL LAB HEMATOLOGY METHOD 06/17/2025 12:32 AM EDT [facility] MCV 86 79 - 98 fL LAB HEMATOLOGY METHOD 06/17/2025 12:32 AM EDT [facility] MCH 27.7 26.0 - 32.0 pg LAB HEMATOLOGY METHOD 06/17/2025 12:32 AM EDT [facility] MCHC 32.3 30.7 - 35.5 g/dL LAB HEMATOLOGY METHOD 06/17/2025 12:32 AM EDT [facility] RDW 15.1(H) 11.5 - 14.5 % LAB HEMATOLOGY METHOD 06/17/2025 12:32 AM EDT [facility] MPV 10.3 8.8 - 12.5 fL LAB HEMATOLOGY METHOD 06/17/2025 12:32 AM EDT [facility] nRBC 0.0 <=0.0 per 100 WBCs LAB HEMATOLOGY METHOD 06/17/2025 12:32 AM EDT [facility] Blood Blood sample taken from central line / Unknown Venipuncture / Unknown 06/17/2025 12:17 AM EDT 06/17/2025 12:24 AM EDT Phillip Clark MD LAB BLOOD ORDERABLES Final R esult Performing Organization Address [facility]/ZIP Co de Phone Number [facility] [address] [place] [address] * Magnesium (06/16/2025 5:35 PM EDT) Magnesium, Plasma 2.2 1.9 - 2.4 mg/dL 06/16/2025 7:41 PM EDT [facility] Blood Venous blood specimen / Unknown Venipuncture / Unknown 06/16/2025 5:35 PM EDT 06/16/2025 7:12 PM EDT Phillip Clark MD LAB BLOOD ORDERABLES Final R esult Performing Organization Address City/[facility] Co de Phone Number [facility] [address] [place] [address] * (ABNORMAL) Renal function panel (06/16/2025 5:35 PM EDT) Glucose, Plasma 89 74 - 99 mg/dL 06/16/2025 7:41 PM EDT [facility] BUN, Plasma 15 8 - 23 mg/dL 06/16/2025 7:41 PM EDT [facility] Creatinine, Plasma 0.79 0.70 - 1.20 mg/dL 06/16/2025 7:41 PM EDT [facility] BUN/Creatinine Ratio 19 06/16/2025 7:41 PM EDT [facility] Sodium, Plasma 134(L) 136 - 145 mmol/L 06/16/2025 7:41 PM EDT [facility] Potassium, Plasma 3.8 3.6 - 4.9 mmol/L 06/16/2025 7:41 PM EDT [facility] Chloride, Plasma 98 97 - 107 mmol/L 06/16/2025 7:41 PM EDT [facility] CO2, Plasma 25 22 - 29 mmol/L 06/16/2025 7:41 PM EDT [facility] Anion Gap 11 6 - 16 mmol/L 06/16/2025 7:41 PM EDT [facility] Total Calcium, Plasma 8.4(L) 8.9 - 10.2 mg/dL 06/16/2025 7:41 PM EDT [facility] Phosphorus, Plasma 2.2(L) 2.5 - 4.5 mg/dL 06/16/2025 7:41 PM EDT [facility] Albumin, Plasma 3.4(L) 3.5 - 5.2 g/dL 06/16/2025 7:41 PM EDT [facility] eGFRcr 96.2 mL/min/1.7 3m*2 06/16/2025 7:41 PM EDT [facility] Comment:Reported eGFRcr in m L/min/1.73m2 is based the CKD-EPI 2020 equation that does not use a race coefficient. Blood Venous blood specimen / Unknown Venipuncture / Unknown 06/16/2025 5:35 PM EDT 06/16/2025 7:12 PM EDT us Phillip Clark MD LAB BLOOD ORDERABLES Final R esult [facility] [address] [place] [address] * [place] [facility], E/M 30-74 MINUTES (06/16/2025 9:58 [...] for testing. Comment 06/16/2025 8:45 AM EDT [facility] Member Services Representative ID Fariba Blanton 025 8:45 AM EDT [facility] Device ID [id number] 06/16/2025 8:45 AM EDT [facility] Specimen Type POC Arterial 06/16/2025 8:45 AM EDT [facility] Blood Arterial blood specimen / Unknown 06/16/2025 8:40 AM EDT 06/16/2025 8:45 AM EDT us Phillip Clark MD LAB POINT OF CARE TE ST DOCKED DEVICE UNSOLICITED RESULTS Final Result Performing Organization Address City/State/[facility] Co de Phone Number [facility] [address] [place] [phone] * (ABNORMAL) Basic metabolic panel (06/16/2025 5:58 AM EDT) Glucose, Plasma 124(H) 74 - 99 mg/dL 06/16/2025 6:35 AM EDT [facility] BUN, Plasma 16 8 - 23 mg/dL 06/16/2025 6:35 AM EDT [facility] Creatinine, Plasma 0.83 0.70 - 1.20 mg/dL 06/16/2025 6:35 AM EDT [facility] BUN/Creatinine Ratio 19 06/16/2025 6:35 AM EDT [facility] Sodium, Plasma 132(L) 136 - 145 mmol/L 06/16/2025 6:35 AM EDT [facility] Potassium, Plasma 3.8 3.6 - 4.9 mmol/L 06/16/2025 6:35 AM EDT [facility] Chloride, Plasma 100 97 - 107 mmol/L 06/16/2025 6:35 AM EDT [facility] CO2, Plasma 25 22 - 29 mmol/L 06/16/2025 6:35 AM EDT [facility] Anion Gap 7 6 - 16 mmol/L 06/16/2025 6:35 AM EDT [facility] Total Calcium, Plasma 8.4(L) 8.9 - 10.2 mg/dL 06/16/2025 6:35 AM EDT [facility] eGFRcr 94.7 mL/min/1.7 3m*2 06/16/2025 6:35 AM EDT [facility] Comment:Reported eGFRcr in m L/min/1.73m2 is based the CKD-EPI 2020 equation that does not use a race coefficient. Blood Arterial blood specimen / Unknown Venipuncture / Unknown 06/16/2025 5:58 AM EDT 06/16/2025 6:05 AM EDT us Phillip Clark MD LAB BLOOD ORDERABLES Final R esult [facility] [address] [place] [address] * XR Chest 1 View (06/16/2025 5:14 AM EDT) Anatomical Region Laterality Modality Chest Digital Radiogra phy Impressions 06/16/2025 8:15 AM EDT Interval removal of the [place] catheter, the right IJ sheath remains in [...] post median sternotomy. Interval removal of the [place] catheter, right IJ sheath remains in place with tip in the mid to distal SVC. No pneumothorax or pleural effusions. Ongoing interstitial edema. Procedure Note Mona Smith MD - 06/16/2025 CLINICAL INDICATION: Post-Op Cardiac Surgery TECHNIQUE: XR CHEST 1 VIEW COMPARISON: Chest radiograph 06/15/2025 FINDINGS: Enlarged cardiac silhouette stable status post median sternotomy. Intervalremoval of the [place] catheter, right IJ sheath remains in place withtip in the mid to distal SVC. No pneumothorax or pleural effusions. Ongoing interstitial edema. IMPRESSION: Interval removal of the [place] catheter, the right IJ sheath remainsin place [...] lt * Phosphorus (06/16/2025 12:36 AM EDT) [facility] Phosphorus, Plasma 3.0 2.5 - 4.5 mg/dL 06/16/2025 1:12 AM EDT [facility] Blood Arterial blood specimen / Unknown Venipuncture / Unknown 06/16/2025 12:36 AM EDT 06/16/2025 12:48 AM EDT us Phillip Clark MD LAB BLOOD ORDERABLES Final R esult [facility] [address] [place] [address] * (ABNORMAL) Protime-INR (06/16/2025 12:36 AM EDT) Prothrombin Time 18.0(H) 12.0 - 14.3 sec LAB COAGULATION METHOD 06/16/2025 1:06 AM EDT [facility] INR 1.5(H) 0.9 - 1.1 LAB COAGULATION METHOD 06/16/2025 1:06 AM EDT [facility] Blood Arterial blood specimen / Unknown Venipuncture / Unknown 06/16/2025 12:36 AM EDT 06/16/2025 12:48 AM EDT Narrative [facility] - 06/16/2025 1:06 AM [...] ORDERABLES Final R esult Performing Organization Address City/[facility]/ZIP Co de Phone Number [facility] [address] [place] [address] * (ABNORMAL) Magnesium (06/16/2025 12:36 AM EDT) Magnesium, Plasma 2.5(H) 1.9 - 2.4 mg/dL 06/16/2025 1:12 AM EDT [facility] Blood Arterial blood specimen / Unknown Venipuncture / Unknown 06/16/2025 12:36 AM EDT 06/16/2025 12:48 AM EDT Phillip Clark MD LAB BLOOD ORDERABLES Final R esult [facility] [address] [place] [address] * (ABNORMAL) CBC (06/16/2025 12:36 AM EDT) WBC Count 13.67(H) 3.70 - 10.30 10*3/uL LAB HEMATOLOGY METHOD 06/16/2025 1:01 AM EDT [facility] RBC Count 4.36(L) 4.60 - 6.10 10*6/uL LAB HEMATOLOGY METHOD 06/16/2025 1:01 AM EDT [facility] HGB 12.3(L) 13.7 - 17.5 g/dL LAB HEMATOLOGY METHOD 06/16/2025 1:01 AM EDT [facility] HCT 37.1(L) 40.0 - 51.0 % LAB HEMATOLOGY METHOD 06/16/2025 1:01 AM EDT [facility] Platelet Count 106(L) 155 - 369 10*3/uL LAB HEMATOLOGY METHOD 06/16/2025 1:01 AM EDT [facility] MCV 85 79 - 98 fL LAB HEMATOLOGY METHOD 06/16/2025 1:01 AM EDT [facility] MCH 28.2 26.0 - 32.0 pg LAB HEMATOLOGY METHOD 06/16/2025 1:01 AM EDT [facility] MCHC 33.2 30.7 - 35.5 g/dL LAB HEMATOLOGY METHOD 06/16/2025 1:01 AM EDT [facility] RDW 15.4(H) 11.5 - 14.5 % LAB HEMATOLOGY METHOD 06/16/2025 1:01 AM EDT [facility] MPV 10.8 8.8 - 12.5 fL LAB HEMATOLOGY METHOD 06/16/2025 1:01 AM EDT [facility] nRBC 0.0 <=0.0 per 100 WBCs LAB HEMATOLOGY METHOD 06/16/2025 1:01 AM EDT [facility] Blood Arterial blood specimen / Unknown Venipuncture / Unknown 06/16/2025 12:36 AM EDT 06/16/2025 12:48 AM EDT us Phillip Clark MD LAB BLOOD ORDERABLES Final R esult [facility] [address] [place] [address] * (ABNORMAL) Blood gas, arterial (06/16/2025 12:36 AM EDT) pH, Arterial 7.43(H) 7.31 - 7.42 LAB HEMATOLOGY METHOD 06/16/2025 12:58 AM EDT [facility] pCO2, Arterial 41 32 - 45 mmHg LAB HEMATOLOGY METHOD 06/16/2025 12:58 AM EDT [facility] pO2, Arterial 65(L) >80 mmHg LAB HEMATOLOGY METHOD 06/16/2025 12:58 AM EDT [facility] SO2, Measured, Arterial 94 94 - 98 % LAB HEMATOLOGY METHOD 06/16/2025 12:58 AM EDT [facility] Base Excess, Arterial 2.5 -2.0 - 3.0 mmol/L LAB HEMATOLOGY METHOD 06/16/2025 12:58 AM EDT [facility] Bicarbonate, Calculated, Arterial 27(H) 22 - 26 mmol/L LAB HEMATOLOGY METHOD 06/16/2025 12:58 AM EDT [facility] Hematocrit, Whole Blood 37.9(L) 40.0 - 51.0 % LAB HEMATOLOGY METHOD 06/16/2025 12:58 AM EDT [facility] Sodium, Whole Blood 133(L) 136 - 145 mmol/L LAB HEMATOLOGY METHOD 06/16/2025 12:58 AM EDT [facility] Potassium, Whole Blood 3.4(L) 3.6 - 4.9 mmol/L LAB HEMATOLOGY METHOD 06/16/2025 12:58 AM EDT [facility] Chloride, Whole Blood 100 97 - 107 mmol/L LAB HEMATOLOGY METHOD 06/16/2025 12:58 AM EDT [facility] Glucose, Whole Blood 124(H) 74 - 99 mg/dL LAB HEMATOLOGY METHOD 06/16/2025 12:58 AM EDT [facility] Ionized Calcium, Whole Blood 4.3(L) 4.6 - 5.1 mg/dL LAB HEMATOLOGY METHOD 06/16/2025 12:58 AM EDT [facility] Lactate, Arterial, Whole Blood 1.0 0.5 - 1.6 mmol/L LAB HEMATOLOGY METHOD 06/16/2025 12:58 AM EDT [facility] Blood Arterial blood specimen / Unknown Arterial Puncture / Unknown 06/16/2025 12:36 AM EDT 06/16/2025 12:55 AM EDT us Phillip Clark MD LAB BLOOD ORDERABLES Final R esult [facility] [address] [place] [address] * (ABNORMAL) POCT glucose meter (06/15/2025 8:00 PM EDT) Pathologist [facility] POCT Glucose 120(H) 74 - 99 mg/dL [...] Comment 06/15/2025 8:01 PM EDT [facility] Member Services Representative ID Svetlana Reilly 8:01 PM EDT [facility] Device ID [id number] 06/15/2025 8:01 PM EDT [facility] Specimen Type POC Capillary 06/15/2025 8:01 PM EDT [facility] Blood Capillary blood specimen / Unknown 06/15/2025 8:00 PM EDT 06/15/2025 8:01 PM EDT Phillip Clark MD LAB POINT OF CARE TE ST DOCKED DEVICE UNSOLICITED RESULTS Final Result Performing Organization Address City/State/[facility] Co de Phone Number [facility] [address] [place] [address] * (ABNORMAL) POCT glucose meter (06/15/2025 5:56 [...] 06/15/2025 5:57 PM EDT [facility] Member Services Representative ID Bony Thomas 5:57 PM EDT [facility] Device ID [id number] 06/15/2025 5:57 PM EDT [facility] Specimen Type POC Arterial 06/15/2025 5:57 PM EDT [facility] Blood Arterial blood specimen / Unknown 06/15/2025 5:56 PM EDT 06/15/2025 5:57 PM EDT us Phillip Clark MD LAB POINT OF CARE TE ST DOCKED DEVICE UNSOLICITED RESULTS Final Result Performing Organization Address City/[facility]/ZIP Co de Phone Number [facility] [address] [place] [address] * Magnesium (06/15/2025 4:11 PM EDT) Magnesium, Plasma 2.1 1.9 - 2.4 mg/dL 06/15/2025 6:21 PM EDT [facility] Blood Venous blood specimen / Unknown Venipuncture / Unknown 06/15/2025 4:11 PM EDT 06/15/2025 4:39 PM EDT Phillip Clark MD LAB BLOOD ORDERABLES Final R esult Performing Organization Address City/[facility]/ZIP Co de Phone Number [facility] [address] [place] [address] * Phosphorus (06/15/2025 4:11 PM EDT) Phosphorus, Plasma 2.9 2.5 - 4.5 mg/dL 06/15/2025 5:12 PM EDT [facility] Blood Venous blood specimen / Unknown Venipuncture / Unknown 06/15/2025 4:11 PM EDT 06/15/2025 4:39 PM EDT Phillip Clark MD LAB BLOOD ORDERABLES Final R esult Performing Organization Address City/[facility]/ZIP Co de Phone Number [facility] [address] [place] [phone] * (ABNORMAL) Basic metabolic panel (06/15/2025 4:11 PM EDT) Glucose, Plasma 123(H) 74 - 99 mg/dL 06/15/2025 5:12 PM EDT [facility] BUN, Plasma 19 8 - 23 mg/dL 06/15/2025 5:12 PM EDT [facility] Creatinine, Plasma 0.88 0.70 - 1.20 mg/dL 06/15/2025 5:12 PM EDT [facility] BUN/Creatinine Ratio 22 06/15/2025 5:12 PM EDT [facility] Sodium, Plasma 133(L) 136 - 145 mmol/L 06/15/2025 5:12 PM EDT [facility] Potassium, Plasma 3.9 3.6 - 4.9 mmol/L 06/15/2025 5:12 PM EDT [facility] Chloride, Plasma 102 97 - 107 mmol/L 06/15/2025 5:12 PM EDT [facility] CO2, Plasma 23 22 - 29 mmol/L 06/15/2025 5:12 PM EDT [facility] Anion Gap 8 6 - 16 mmol/L 06/15/2025 5:12 PM EDT [facility] Total Calcium, Plasma 8.6(L) 8.9 - 10.2 mg/dL 06/15/2025 5:12 PM EDT [facility] eGFRcr 93.1 mL/min/1.7 3m*2 06/15/2025 5:12 PM EDT [facility] Comment:Reported eGFRcr in m L/min/1.73m2 is based the CKD-EPI 2020 equation that does not use a race coefficient. Blood Venous blood specimen / Unknown Venipuncture / Unknown 06/15/2025 4:11 PM EDT 06/15/2025 4:39 PM EDT us Phillip Clark MD LAB BLOOD ORDERABLES Final R esult [facility] [address] [place] [address] * (ABNORMAL) POCT glucose meter (06/15/2025 12:14 PM EDT) POCT Glucose 137(H) 74 - 99 mg/dL 06/15/2025 12:16 PM EDT [facility] Comment:Accuracy of a glucos e result [...] Comment 06/15/2025 12:16 PM EDT [facility] Member Services Representative ID Bony Thomas [phone] 12:16 PM EDT [facility] Device ID [id number] 06/15/2025 12:16 PM EDT [facility] Specimen Type POC Arterial 06/15/2025 12:16 PM EDT [facility] Blood Arterial blood specimen / Unknown 06/15/2025 12:14 PM EDT 06/15/2025 12:16 PM EDT us Phillip Clark MD LAB POINT OF CARE TE ST DOCKED DEVICE UNSOLICITED RESULTS Final Result Performing Organization Address City/State/[facility] Phone Number [facility] [address] [place] [address] * [place] [facility], E/M 30-74 MINUTES (06/15/2025 9:19 [...] POCT glucose meter (06/15/2025 8:24 AM EDT) [facility] POCT Glucose 129(H) 74 - 99 [...] Comment 06/15/2025 8:25 AM EDT [facility] Member Services Representative ID Bony Thomas 025 8:25 AM EDT [facility] Device ID [id number] 06/15/2025 8:25 AM EDT [facility] Specimen Type POC Arterial 06/15/2025 8:25 AM EDT [facility] Blood Arterial blood specimen / Unknown 06/15/2025 8:24 AM EDT 06/15/2025 8:25 AM EDT Phillip Clark MD LAB POINT OF CARE TE ST DOCKED DEVICE UNSOLICITED RESULTS Final Result Performing Organization Address City/State/[facility] Co de Phone Number HEALTHCARE LAB [address] [place] [address] * (ABNORMAL) CBC and Differential (06/15/2025 8:18 AM EDT) [facility] WBC Count 12.56(H) 3.70 - 10.30 10*3/uL LAB HEMATOLOGY METHOD 06/15/2025 8:47 AM EDT [facility] RBC Count 4.60 4.60 - 6.10 10*6/uL LAB HEMATOLOGY METHOD 06/15/2025 8:47 AM EDT [facility] HGB 12.8(L) 13.7 - 17.5 g/dL LAB HEMATOLOGY METHOD 06/15/2025 8:47 AM EDT [facility] HCT 39.4(L) 40.0 - 51.0 % LAB HEMATOLOGY METHOD 06/15/2025 8:47 AM EDT [facility] Platelet Count 120(L) 155 - 369 10*3/uL LAB HEMATOLOGY METHOD 06/15/2025 8:47 AM EDT [facility] MCV 86 79 - 98 fL LAB HEMATOLOGY METHOD 06/15/2025 8:47 AM EDT [facility] MCH 27.8 26.0 - 32.0 pg LAB HEMATOLOGY METHOD 06/15/2025 8:47 AM EDT [facility] MCHC 32.5 30.7 - 35.5 g/dL LAB HEMATOLOGY METHOD 06/15/2025 8:47 AM EDT [facility] RDW 15.5(H) 11.5 - 14.5 % LAB HEMATOLOGY METHOD 06/15/2025 8:47 AM EDT [facility] MPV 10.6 8.8 - 12.5 fL LAB HEMATOLOGY METHOD 06/15/2025 8:47 AM EDT [facility] nRBC 0.0 <=0.0 per 100 WBCs LAB HEMATOLOGY METHOD 06/15/2025 8:47 AM EDT [facility] Differential Type Automated LAB HEMATOLOGY METHOD 06/15/2025 8:47 AM EDT [facility] Neutrophils % 84 % LAB HEMATOLOGY METHOD 06/15/2025 8:47 AM EDT [facility] Lymphocytes % 5 % LAB HEMATOLOGY METHOD 06/15/2025 8:47 AM EDT [facility] Monocytes % 10 % LAB HEMATOLOGY METHOD 06/15/2025 8:47 AM EDT [facility] Eosinophils % 0 % LAB HEMATOLOGY METHOD 06/15/2025 8:47 AM EDT [facility] Basophils % 0 % LAB HEMATOLOGY METHOD 06/15/2025 8:47 AM EDT [facility] Immature Granulocytes % 1 % LAB HEMATOLOGY METHOD 06/15/2025 8:47 AM EDT [facility] Neutrophils Absolute 10.59(H) 1.60 - 6.10 10*3/uL LAB HEMATOLOGY METHOD 06/15/2025 8:47 AM EDT [facility] Lymphocytes Absolute 0.60(L) 1.20 - 3.90 10*3/uL LAB HEMATOLOGY METHOD 06/15/2025 8:47 AM EDT [facility] Monocytes Absolute 1.29(H) 0.30 - 0.90 10*3/uL LAB HEMATOLOGY METHOD 06/15/2025 8:47 AM EDT [facility] Eosinophils Absolute 0.00 0.00 - 0.50 10*3/uL LAB HEMATOLOGY METHOD 06/15/2025 8:47 AM EDT [facility] Basophils Absolute 0.02 0.00 - 0.10 10*3/uL LAB HEMATOLOGY METHOD 06/15/2025 8:47 AM EDT [facility] Immature Granulocytes Absolute 0.06 0.00 - 0.06 10*3/uL LAB HEMATOLOGY METHOD 06/15/2025 8:47 AM EDT [facility] Blood Venous blood specimen / Unknown Venipuncture / Unknown 06/15/2025 8:18 AM EDT 06/15/2025 8:34 AM EDT Narrative [facility] - 06/15/2025 8:47 AM EDT Therapeutic decision making should be based on absolute values, rather than percentages. us Phillip Clark MD LAB BLOOD ORDERABLES Final R esult [facility] [address] [place] [address] * (ABNORMAL) Protime-INR (06/15/2025 6:40 AM EDT) Prothrombin Time 16.5(H) 12.0 - 14.3 sec LAB COAGULATION METHOD 06/15/2025 7:53 AM EDT [facility] INR 1.3(H) 0.9 - 1.1 LAB COAGULATION METHOD 06/15/2025 7:53 AM EDT [facility] Blood Arterial blood specimen / Unknown Venipuncture / Unknown 06/15/2025 6:40 AM EDT 06/15/2025 6:47 AM EDT Narrative [facility] - 06/15/2025 7:53 AM [...] ORDERABLES Final R esult Performing Organization Address [facility] Co de Phone Number [facility] [address] [place] [address] * Ionized calcium, whole blood (06/15/2025 6:40 AM EDT) Ionized Calcium, Whole Blood 4.6 4.6 - 5.1 mg/dL LAB HEMATOLOGY METHOD 06/15/2025 6:50 AM EDT [facility] Blood Arterial blood specimen / Unknown Venipuncture / Unknown 06/15/2025 6:40 AM EDT 06/15/2025 6:48 AM EDT Phillip Clark MD LAB BLOOD ORDERABLES Final R esult Performing Organization Address [facility] de Phone Number [facility] [address] [place] [address] * ECG Adult - POD 1 (06/15/2025 5:20 AM EDT) Pathologist [facility] EKG DIAGNOSIS CLASS Abnormal MUSE ECG Ventricular Rate 71 BPM MUSE ECG Atrial Rate 71 BPM MUSE ECG [place] Interval 182 ms MUSE ECG QRSD Interval 108 ms MUSE ECG QT Interval 418 ms MUSE ECG QTC Interval 454 ms MUSE ECG P [place] 51 degrees MUSE ECG R [place] -48 degrees MUSE ECG T Wave [place] -12 degrees MUSE ECG Diagnosis Normal sinus rhythm MUSE ECG Diagnosis Left anterior fascicular block MUSE ECG Diagnosis Abnormal ECG MUSE ECG Diagnosis MUSE ECG Diagnosis Confirmed by Bimal Brambila ([id number]) on 06/15/2025 11:38:57 AM MUSE ECG 06/15/2025 5:20 AM EDT 06/15/2025 11:38 AM EDT Phillip Clark MD ECG ORDERABLES Final Result Performing Organization Address [facility] Co de Phone Number MUSE ECG * (ABNORMAL) Blood gas panel, arterial (06/15/2025 3:58 AM EDT) pH, Arterial 7.39 7.31 - 7.42 LAB HEMATOLOGY METHOD 06/15/2025 4:06 AM EDT [facility] pCO2, Arterial 39 32 - 45 mmHg LAB HEMATOLOGY METHOD 06/15/2025 4:06 AM EDT [facility] pO2, Arterial 79(L) >80 mmHg LAB HEMATOLOGY METHOD 06/15/2025 4:06 AM EDT [facility] SO2, Measured, Arterial 97 94 - 98 % LAB HEMATOLOGY METHOD 06/15/2025 4:06 AM EDT [facility] Base Excess, Arterial -1.2 -2.0 - 3.0 mmol/L LAB HEMATOLOGY METHOD 06/15/2025 4:06 AM EDT [facility] Bicarbonate, Calculated, Arterial 24 22 - 26 mmol/L LAB HEMATOLOGY METHOD 06/15/2025 4:06 AM EDT [facility] Hematocrit, Whole Blood 39.7(L) 40.0 - 51.0 % LAB HEMATOLOGY METHOD 06/15/2025 4:06 AM EDT [facility] Sodium, Whole Blood 134(L) 136 - 145 mmol/L LAB HEMATOLOGY METHOD 06/15/2025 4:06 AM EDT [facility] Potassium, Whole Blood 4.4 3.6 - 4.9 mmol/L LAB HEMATOLOGY METHOD 06/15/2025 4:06 AM EDT [facility] Chloride, Whole Blood 108(H) 97 - 107 mmol/L LAB HEMATOLOGY METHOD 06/15/2025 4:06 AM EDT [facility] Glucose, Whole Blood 132(H) 74 - 99 mg/dL LAB HEMATOLOGY METHOD 06/15/2025 4:06 AM EDT [facility] Ionized Calcium, Whole Blood 4.5(L) 4.6 - 5.1 mg/dL LAB HEMATOLOGY METHOD 06/15/2025 4:06 AM EDT [facility] Lactate, Arterial, Whole Blood 0.9 0.5 - 1.6 mmol/L LAB HEMATOLOGY METHOD 06/15/2025 4:06 AM EDT [facility] Blood Arterial blood specimen / Unknown Arterial Puncture / Unknown 06/15/2025 3:58 AM EDT 06/15/2025 4:06 AM EDT us Phillip Clark MD LAB BLOOD ORDERABLES Final R esult [facility] [address] [place] [address] * XR Chest 1 View (06/15/2025 2:53 [...] of NG tube. Right internal jugular approach [place] catheter and mediastinal drain in unchanged position. No pneumothorax or pleural effusions. Ongoing interstitial edema. Procedure Note Idania Edmnods MD - 06/15/2025 CLINICAL INDICATION: Post-Op Cardiac [...] IMG XR PROCEDURES Final Resu lt * [place] [facility], ADDL 30 MIN, [place] [facility], ADDL 30 MIN (06/15/2025 12:21 [...] LAB HEMATOLOGY METHOD 06/15/2025 8:17 AM EDT [facility] Neutrophils % 85 % LAB HEMATOLOGY METHOD 06/15/2025 8:17 AM EDT [facility] Lymphocytes % 4 % LAB HEMATOLOGY METHOD 06/15/2025 8:17 AM EDT [facility] Monocytes % 10 % LAB HEMATOLOGY METHOD 06/15/2025 8:17 AM EDT [facility] Eosinophils % 0 % LAB HEMATOLOGY METHOD 06/15/2025 8:17 AM EDT [facility] Basophils % 0 % LAB HEMATOLOGY METHOD 06/15/2025 8:17 AM EDT [facility] Immature Granulocytes % 1 % LAB HEMATOLOGY METHOD 06/15/2025 8:17 AM EDT [facility] Immature Granulocytes Absolute 0.05 0.00 - 0.06 10*3/uL LAB HEMATOLOGY METHOD 06/15/2025 8:17 AM EDT [facility] Neutrophils Absolute 9.28(H) 1.60 - 6.10 10*3/uL LAB HEMATOLOGY METHOD 06/15/2025 8:17 AM EDT [facility] Lymphocytes Absolute 0.45(L) 1.20 - 3.90 10*3/uL LAB HEMATOLOGY METHOD 06/15/2025 8:17 AM EDT [facility] Monocytes Absolute 1.14(H) 0.30 - 0.90 10*3/uL LAB HEMATOLOGY METHOD 06/15/2025 8:17 AM EDT [facility] Basophils Absolute 0.02 0.00 - 0.10 10*3/uL LAB HEMATOLOGY METHOD 06/15/2025 8:17 AM EDT [facility] Eosinophils Absolute 0.00 0.00 - 0.50 10*3/uL LAB HEMATOLOGY METHOD 06/15/2025 8:17 AM EDT [facility] Blood Venous blood specimen / Unknown Venipuncture / Unknown 06/15/2025 12:20 AM EDT 06/15/2025 12:26 AM EDT us Phillip Clark MD LAB BLOOD ORDERABLES Final R esult [facility] [address] [place] [address] * Phosphorus (06/15/2025 12:20 AM EDT) Phosphorus, Plasma 2.6 2.5 - 4.5 mg/dL 06/15/2025 8:33 AM EDT [facility] Blood Venous blood specimen / Unknown Venipuncture / Unknown 06/15/2025 12:20 AM EDT 06/15/2025 12:26 AM EDT us Phillip Clark MD LAB BLOOD ORDERABLES Final R esult [facility] [address] [place] [address] * (ABNORMAL) Magnesium (06/15/2025 12:20 AM EDT) Magnesium, Plasma 2.5(H) 1.9 - 2.4 mg/dL 06/15/2025 7:37 AM EDT [facility] Blood Venous blood specimen / Unknown Venipuncture / Unknown 06/15/2025 12:20 AM EDT 06/15/2025 12:26 AM EDT us Phillip Clark MD LAB BLOOD ORDERABLES Final R esult [facility] [address] [place] [address] * (ABNORMAL) Basic metabolic panel (06/15/2025 12:20 AM EDT) Glucose, Plasma 140(H) 74 - 99 mg/dL 06/15/2025 7:37 AM EDT [facility] BUN, Plasma 17 8 - 23 mg/dL 06/15/2025 7:37 AM EDT [facility] Creatinine, Plasma 0.84 0.70 - 1.20 mg/dL 06/15/2025 7:37 AM EDT [facility] BUN/Creatinine Ratio 20 06/15/2025 7:37 AM EDT [facility] Sodium, Plasma 138 136 - 145 mmol/L 06/15/2025 7:37 AM EDT [facility] Potassium, Plasma 4.6 3.6 - 4.9 mmol/L 06/15/2025 7:37 AM EDT [facility] Chloride, Plasma 107 97 - 107 mmol/L 06/15/2025 7:37 AM EDT [facility] CO2, Plasma 18(L) 22 - 29 mmol/L 06/15/2025 7:37 AM EDT [facility] Anion Gap 13 6 - 16 mmol/L 06/15/2025 7:37 AM EDT [facility] Total Calcium, Plasma 8.0(L) 8.9 - 10.2 mg/dL 06/15/2025 7:37 AM EDT [facility] eGFRcr 94.4 mL/min/1.7 3m*2 06/15/2025 7:37 AM EDT [facility] Comment:Reported eGFRcr in m L/min/1.73m2 is based the CKD-EPI 2020 equation that does not use a race coefficient. Blood Venous blood specimen / Unknown Venipuncture / Unknown 06/15/2025 12:20 AM EDT 06/15/2025 12:26 AM EDT us Phillip Clark MD LAB BLOOD ORDERABLES Final R esult [facility] [address] [place] [address] * (ABNORMAL) CBC W/O Differential (06/15/2025 12:20 AM EDT) WBC Count 10.94(H) 3.70 - 10.30 10*3/uL LAB HEMATOLOGY METHOD 06/15/2025 8:32 AM EDT [facility] RBC Count 4.94 4.60 - 6.10 10*6/uL LAB HEMATOLOGY METHOD 06/15/2025 8:32 AM EDT [facility] HGB 13.6(L) 13.7 - 17.5 g/dL LAB HEMATOLOGY METHOD 06/15/2025 8:32 AM EDT [facility] HCT 41.0 40.0 - 51.0 % LAB HEMATOLOGY METHOD 06/15/2025 8:32 AM EDT [facility] Platelet Count 142(L) 155 - 369 10*3/uL LAB HEMATOLOGY METHOD 06/15/2025 8:32 AM EDT [facility] MCV 87 79 - 98 fL LAB HEMATOLOGY METHOD 06/15/2025 8:32 AM EDT [facility] MCH 27.5 26.0 - 32.0 pg LAB HEMATOLOGY METHOD 06/15/2025 8:32 AM EDT [facility] MCHC 31.8 30.7 - 35.5 g/dL LAB HEMATOLOGY METHOD 06/15/2025 8:32 AM EDT [facility] RDW 15.6(H) 11.5 - 14.5 % LAB HEMATOLOGY METHOD 06/15/2025 8:32 AM EDT [facility] MPV 11.1 8.8 - 12.5 fL LAB HEMATOLOGY METHOD 06/15/2025 8:32 AM EDT [facility] nRBC 0.0 <=0.0 per 100 WBCs LAB HEMATOLOGY METHOD 06/15/2025 8:32 AM EDT [facility] Blood Venous blood specimen / Unknown Venipuncture / Unknown 06/15/2025 12:20 AM EDT 06/15/2025 12:26 AM EDT us Phillip Clark MD LAB BLOOD ORDERABLES Final R esult Performing Organization Address City/[facility]/ZIP Co de Phone Number [facility] [address] [place] [address] * Potassium, Plasma (06/15/2025 12:20 AM EDT) Potassium, Plasma 4.5 3.6 - 4.9 mmol/L 06/15/2025 12:51 AM EDT [facility] Blood Venous blood specimen / Unknown Venipuncture / Unknown 06/15/2025 12:20 AM EDT 06/15/2025 12:26 AM EDT us Phillip Clark MD LAB BLOOD ORDERABLES Final R esult Performing Organization Address [facility] Co de Phone Number [facility] [address] [place] [address] * Hematocrit (06/15/2025 12:20 AM EDT) HCT 41.0 40.0 - 51.0 % LAB HEMATOLOGY METHOD 06/15/2025 12:36 AM EDT [facility] Blood Venous blood specimen / Unknown Venipuncture / Unknown 06/15/2025 12:20 AM EDT 06/15/2025 12:26 AM EDT us Phillip Clark MD LAB BLOOD ORDERABLES Final R esult Performing Organization Address City/[facility]/ZIP Co de Phone Number [facility] [address] [place] [address] * (ABNORMAL) Hemoglobin (06/15/2025 12:20 AM EDT) HGB 13.6(L) 13.7 - 17.5 g/dL LAB HEMATOLOGY METHOD 06/15/2025 12:36 AM EDT [facility] Blood Venous blood specimen / Unknown Venipuncture / Unknown 06/15/2025 12:20 AM EDT 06/15/2025 12:26 AM EDT us Phillip Clark MD LAB BLOOD ORDERABLES Final R esult [facility] [address] [place] [address] * (ABNORMAL) Blood gas, arterial (06/15/2025 12:20 AM EDT) pH, Arterial 7.37 7.31 - 7.42 LAB HEMATOLOGY METHOD 06/15/2025 12:37 AM EDT [facility] pCO2, Arterial 40 32 - 45 mmHg LAB HEMATOLOGY METHOD 06/15/2025 12:37 AM EDT [facility] pO2, Arterial 65(L) >80 mmHg LAB HEMATOLOGY METHOD 06/15/2025 12:37 AM EDT [facility] SO2, Measured, Arterial 94 94 - 98 % LAB HEMATOLOGY METHOD 06/15/2025 12:37 AM EDT [facility] Base Excess, Arterial -1.8 -2.0 - 3.0 mmol/L LAB HEMATOLOGY METHOD 06/15/2025 12:37 AM EDT [facility] Bicarbonate, Calculated, Arterial 23 22 - 26 mmol/L LAB HEMATOLOGY METHOD 06/15/2025 12:37 AM EDT [facility] Hematocrit, Whole Blood 41.1 40.0 - 51.0 % LAB HEMATOLOGY METHOD 06/15/2025 12:37 AM EDT [facility] Sodium, Whole Blood 137 136 - 145 mmol/L LAB HEMATOLOGY METHOD 06/15/2025 12:37 AM EDT [facility] Potassium, Whole Blood 4.2 3.6 - 4.9 mmol/L LAB HEMATOLOGY METHOD 06/15/2025 12:37 AM EDT [facility] Chloride, Whole Blood 110(H) 97 - 107 mmol/L LAB HEMATOLOGY METHOD 06/15/2025 12:37 AM EDT [facility] Glucose, Whole Blood 140(H) 74 - 99 mg/dL LAB HEMATOLOGY METHOD 06/15/2025 12:37 AM EDT [facility] Ionized Calcium, Whole Blood 4.5(L) 4.6 - 5.1 mg/dL LAB HEMATOLOGY METHOD 06/15/2025 12:37 AM EDT [facility] Lactate, Arterial, Whole Blood 1.8(H) 0.5 - 1.6 mmol/L LAB HEMATOLOGY METHOD 06/15/2025 12:37 AM EDT [facility] Blood Arterial blood specimen / Unknown Arterial Puncture / Unknown 06/15/2025 12:20 AM EDT 06/15/2025 12:34 AM EDT us Phillip Clark MD LAB BLOOD ORDERABLES Final R esult [facility] [address] [place] [address] * (ABNORMAL) Blood gas, arterial (06/14/2025 8:04 PM EDT) pH, Arterial 7.35 7.31 - 7.42 LAB HEMATOLOGY METHOD 06/14/2025 8:19 PM EDT [facility] pCO2, Arterial 39 32 - 45 mmHg LAB HEMATOLOGY METHOD 06/14/2025 8:19 PM EDT [facility] pO2, Arterial 88 >80 mmHg LAB HEMATOLOGY METHOD 06/14/2025 8:19 PM EDT [facility] SO2, Measured, Arterial 98 94 - 98 % LAB HEMATOLOGY METHOD 06/14/2025 8:19 PM EDT [facility] Base Excess, Arterial -3.7(L) -2.0 - 3.0 mmol/L LAB HEMATOLOGY METHOD 06/14/2025 8:19 PM EDT [facility] Bicarbonate, Calculated, Arterial 22 22 - 26 mmol/L LAB HEMATOLOGY METHOD 06/14/2025 8:19 PM EDT [facility] Hematocrit, Whole Blood 44.7 40.0 - 51.0 % LAB HEMATOLOGY METHOD 06/14/2025 8:19 PM EDT [facility] Sodium, Whole Blood 138 136 - 145 mmol/L LAB HEMATOLOGY METHOD 06/14/2025 8:19 PM EDT [facility] Potassium, Whole Blood 4.5 3.6 - 4.9 mmol/L LAB HEMATOLOGY METHOD 06/14/2025 8:19 PM EDT [facility] Chloride, Whole Blood 109(H) 97 - 107 mmol/L LAB HEMATOLOGY METHOD 06/14/2025 8:19 PM EDT [facility] Glucose, Whole Blood 185(H) 74 - 99 mg/dL LAB HEMATOLOGY METHOD 06/14/2025 8:19 PM EDT [facility] Ionized Calcium, Whole Blood 4.5(L) 4.6 - 5.1 mg/dL LAB HEMATOLOGY METHOD 06/14/2025 8:19 PM EDT [facility] Lactate, Arterial, Whole Blood 3.0(H) 0.5 - 1.6 mmol/L LAB HEMATOLOGY METHOD 06/14/2025 8:19 PM EDT [facility] Blood Arterial blood specimen / Unknown Arterial Puncture / Unknown 06/14/2025 8:04 PM EDT 06/14/2025 8:14 PM EDT us Phillip Clark MD LAB BLOOD ORDERABLES Final R esult [facility] [address] [place] [address] * Potassium (06/14/2025 8:03 PM EDT) Potassium, Plasma 4.9 3.6 - 4.9 mmol/L 06/14/2025 8:33 PM EDT [facility] Blood Arterial blood specimen / Unknown Venipuncture / Unknown 06/14/2025 8:03 PM EDT 06/14/2025 8:11 PM EDT us Phillip Clark MD LAB BLOOD ORDERABLES Final R esult [facility] [address] [place] [address] * (ABNORMAL) Magnesium (06/14/2025 8:03 PM EDT) Magnesium, Plasma 2.7(H) 1.9 - 2.4 mg/dL 06/14/2025 8:40 PM EDT [facility] Blood Arterial blood specimen / Unknown Venipuncture / Unknown 06/14/2025 8:03 PM EDT 06/14/2025 8:11 PM EDT us Phillip Clark MD LAB BLOOD ORDERABLES Final R esult [facility] [address] [place] [address] * (ABNORMAL) CBC (06/14/2025 8:03 PM EDT) WBC Count 13.98(H) 3.70 - 10.30 10*3/uL LAB HEMATOLOGY METHOD 06/14/2025 8:20 PM EDT [facility] RBC Count 5.14 4.60 - 6.10 10*6/uL LAB HEMATOLOGY METHOD 06/14/2025 8:20 PM EDT [facility] HGB 14.5 13.7 - 17.5 g/dL LAB HEMATOLOGY METHOD 06/14/2025 8:20 PM EDT [facility] HCT 43.9 40.0 - 51.0 % LAB HEMATOLOGY METHOD 06/14/2025 8:20 PM EDT [facility] Platelet Count 158 155 - 369 10*3/uL LAB HEMATOLOGY METHOD 06/14/2025 8:20 PM EDT [facility] MCV 85 79 - 98 fL LAB HEMATOLOGY METHOD 06/14/2025 8:20 PM EDT [facility] MCH 28.2 26.0 - 32.0 pg LAB HEMATOLOGY METHOD 06/14/2025 8:20 PM EDT [facility] MCHC 33.0 30.7 - 35.5 g/dL LAB HEMATOLOGY METHOD 06/14/2025 8:20 PM EDT [facility] RDW 14.9(H) 11.5 - 14.5 % LAB HEMATOLOGY METHOD 06/14/2025 8:20 PM EDT [facility] MPV 10.8 8.8 - 12.5 fL LAB HEMATOLOGY METHOD 06/14/2025 8:20 PM EDT [facility] nRBC 0.0 <=0.0 per 100 WBCs LAB HEMATOLOGY METHOD 06/14/2025 8:20 PM EDT [facility] Blood Arterial blood specimen / Unknown Venipuncture / Unknown 06/14/2025 8:03 PM EDT 06/14/2025 8:11 PM EDT us Phillip Clark MD LAB BLOOD ORDERABLES Final R esult [facility] [address] [place] [address] * (ABNORMAL) Basic metabolic panel (06/14/2025 8:03 PM EDT) Glucose, Plasma 194(H) 74 - 99 mg/dL 06/14/2025 8:40 PM EDT [facility] BUN, Plasma 16 8 - 23 mg/dL 06/14/2025 8:40 PM EDT [facility] Creatinine, Plasma 0.85 0.70 - 1.20 mg/dL 06/14/2025 8:40 PM EDT [facility] BUN/Creatinine Ratio 19 06/14/2025 8:40 PM EDT [facility] Sodium, Plasma 139 136 - 145 mmol/L 06/14/2025 8:40 PM EDT [facility] Potassium, Plasma 5.0(H) 3.6 - 4.9 mmol/L 06/14/2025 8:40 PM EDT [facility] Chloride, Plasma 109(H) 97 - 107 mmol/L 06/14/2025 8:40 PM EDT [facility] CO2, Plasma 20(L) 22 - 29 mmol/L 06/14/2025 8:40 PM EDT [facility] Anion Gap 10 6 - 16 mmol/L 06/14/2025 8:40 PM EDT [facility] Total Calcium, Plasma 8.2(L) 8.9 - 10.2 mg/dL 06/14/2025 8:40 PM EDT [facility] eGFRcr 94.1 mL/min/1.7 3m*2 06/14/2025 8:40 PM EDT [facility] Comment:Reported eGFRcr in m L/min/1.73m2 is based the CKD-EPI 2020 equation that does not use a race coefficient. Blood Arterial blood specimen / Unknown Venipuncture / Unknown 06/14/2025 8:03 PM EDT 06/14/2025 8:11 PM EDT us Phillip Clark MD LAB BLOOD ORDERABLES Final R esult [facility] [address] [place] [address] * (ABNORMAL) Blood gas panel, arterial (06/14/2025 6:47 PM EDT) pH, Arterial 7.30(L) 7.31 - 7.42 LAB HEMATOLOGY METHOD 06/14/2025 6:57 PM EDT [facility] pCO2, Arterial 41 32 - 45 mmHg LAB HEMATOLOGY METHOD 06/14/2025 6:57 PM EDT [facility] pO2, Arterial 70(L) >80 mmHg LAB HEMATOLOGY METHOD 06/14/2025 6:57 PM EDT [facility] SO2, Measured, Arterial 94 94 - 98 % LAB HEMATOLOGY METHOD 06/14/2025 6:57 PM EDT [facility] Base Excess, Arterial -5.6(L) -2.0 - 3.0 mmol/L LAB HEMATOLOGY METHOD 06/14/2025 6:57 PM EDT [facility] Bicarbonate, Calculated, Arterial 21(L) 22 - 26 mmol/L LAB HEMATOLOGY METHOD 06/14/2025 6:57 PM EDT [facility] Hematocrit, Whole Blood 45.5 40.0 - 51.0 % LAB HEMATOLOGY METHOD 06/14/2025 6:57 PM EDT [facility] Sodium, Whole Blood 138 136 - 145 mmol/L LAB HEMATOLOGY METHOD 06/14/2025 6:57 PM EDT [facility] Potassium, Whole Blood 4.4 3.6 - 4.9 mmol/L LAB HEMATOLOGY METHOD 06/14/2025 6:57 PM EDT [facility] Chloride, Whole Blood 109(H) 97 - 107 mmol/L LAB HEMATOLOGY METHOD 06/14/2025 6:57 PM EDT [facility] Glucose, Whole Blood 209(H) 74 - 99 mg/dL LAB HEMATOLOGY METHOD 06/14/2025 6:57 PM EDT [facility] Ionized Calcium, Whole Blood 4.6 4.6 - 5.1 mg/dL LAB HEMATOLOGY METHOD 06/14/2025 6:57 PM EDT [facility] [facility] Lactate, Arterial, Whole Blood 3.9(H) 0.5 - 1.6 mmol/L LAB HEMATOLOGY METHOD 06/14/2025 6:57 PM EDT [facility] Blood Arterial blood specimen / Unknown Arterial Puncture / Unknown 06/14/2025 6:47 PM EDT 06/14/2025 6:56 PM EDT us Phillip Clark MD LAB BLOOD ORDERABLES Final R esult [facility] [address] [place] [address] * [place] [facility], E/M 30-74 MINUTES (06/14/2025 5:35 [...] LAB HEMATOLOGY METHOD 06/14/2025 4:12 PM EDT [facility] pCO2, Arterial 43 32 - 45 mmHg LAB HEMATOLOGY METHOD 06/14/2025 4:12 PM EDT [facility] pO2, Arterial 126 >80 mmHg LAB HEMATOLOGY METHOD 06/14/2025 4:12 PM EDT [facility] SO2, Measured, Arterial 99(H) 94 - 98 % LAB HEMATOLOGY METHOD 06/14/2025 4:12 PM EDT [facility] Base Excess, Arterial -5.8(L) -2.0 - 3.0 mmol/L LAB HEMATOLOGY METHOD 06/14/2025 4:12 PM EDT [facility] Bicarbonate, Calculated, Arterial 21(L) 22 - 26 mmol/L LAB HEMATOLOGY METHOD 06/14/2025 4:12 PM EDT [facility] Hematocrit, Whole Blood 43.9 40.0 - 51.0 % LAB HEMATOLOGY METHOD 06/14/2025 4:12 PM EDT [facility] Sodium, Whole Blood 139 136 - 145 mmol/L LAB HEMATOLOGY METHOD 06/14/2025 4:12 PM EDT [facility] Potassium, Whole Blood 3.8 3.6 - 4.9 mmol/L LAB HEMATOLOGY METHOD 06/14/2025 4:12 PM EDT [facility] Chloride, Whole Blood 109(H) 97 - 107 mmol/L LAB HEMATOLOGY METHOD 06/14/2025 4:12 PM EDT [facility] Glucose, Whole Blood 179(H) 74 - 99 mg/dL LAB HEMATOLOGY METHOD 06/14/2025 4:12 PM EDT [facility] Ionized Calcium, Whole Blood 4.6 4.6 - 5.1 mg/dL LAB HEMATOLOGY METHOD 06/14/2025 4:12 PM EDT [facility] Lactate, Arterial, Whole Blood 4.3(H) 0.5 - 1.6 mmol/L LAB HEMATOLOGY METHOD 06/14/2025 4:12 PM EDT [facility] Blood Arterial blood specimen / Unknown Arterial Puncture / Unknown 06/14/2025 3:57 PM EDT 06/14/2025 4:11 PM EDT us Phillip Clark MD LAB BLOOD ORDERABLES Final R esult [facility] [address] [place] [address] * (ABNORMAL) Blood gas panel with oximetry, mixed venous (06/14/2025 3:00 PM EDT) pH, Mixed Venous 7.28(L) 7.32 - 7.43 LAB HEMATOLOGY METHOD 06/14/2025 3:24 PM EDT [facility] pCO2, Mixed Venous 47 40 - 55 mmHg LAB HEMATOLOGY METHOD 06/14/2025 3:24 PM EDT [facility] pO2, Mixed Venous 54(H) 25 - 40 mmHg LAB HEMATOLOGY METHOD 06/14/2025 3:24 PM EDT [facility] SO2, Measured, Mixed Venous 84(H) 65 - 80 % LAB HEMATOLOGY METHOD 06/14/2025 3:24 PM EDT [facility] Bicarbonate, Calculated, Mixed Venous 22 22 - 26 mmol/L LAB HEMATOLOGY METHOD 06/14/2025 3:24 PM EDT [facility] Base Excess, Mixed Venous -4.7(L) -2.0 - 3.0 mmol/L LAB HEMATOLOGY METHOD 06/14/2025 3:24 PM EDT [facility] Hematocrit, Whole Blood 43.0 40.0 - 51.0 % LAB HEMATOLOGY METHOD 06/14/2025 3:24 PM EDT [facility] Sodium, Whole Blood 139 136 - 145 mmol/L LAB HEMATOLOGY METHOD 06/14/2025 3:24 PM EDT [facility] Potassium, Whole Blood 3.7 3.6 - 4.9 mmol/L LAB HEMATOLOGY METHOD 06/14/2025 3:24 PM EDT [facility] Chloride, Whole Blood 110(H) 97 - 107 mmol/L LAB HEMATOLOGY METHOD 06/14/2025 3:24 PM EDT [facility] Ionized Calcium, Whole Blood 4.6 4.6 - 5.1 mg/dL LAB HEMATOLOGY METHOD 06/14/2025 3:24 PM EDT [facility] Glucose, Whole Blood 149(H) 74 - 99 mg/dL LAB HEMATOLOGY METHOD 06/14/2025 3:24 PM EDT [facility] Oxyhemoglobin, Mixed Venous, Whole Blood 81.9(H) 40.0 - 70.0 % LAB HEMATOLOGY METHOD 06/14/2025 3:24 PM EDT [facility] Hemoglobin Reduced, Mixed Venous, Whole Blood 16.1 % LAB HEMATOLOGY METHOD 06/14/2025 3:24 PM EDT [facility] Total Hemoglobin, Mixed Venous, Whole Blood 14.0 13.7 - 17.5 g/dL LAB HEMATOLOGY METHOD 06/14/2025 3:24 PM EDT [facility] Blood Mixed venous blood specimen / Unknown Venipuncture / Unknown 06/14/2025 3:00 PM EDT 06/14/2025 3:23 PM EDT us Phillip Clark MD LAB BLOOD ORDERABLES Final R esult [facility] [address] [place] [address] * XR Abdomen 1 View (06/14/2025 2:57 [...] Detected Not Detected 06/15/2025 12:46 PM EDT [facility] Swab (Axilla and Groin) Non-blood Collection / Unknown 06/14/2025 2:37 PM EDT 06/14/2025 3:10 PM EDT Narrative [facility] - 06/15/2025 12:46 PM EDT This PCR assay was developed and its performance characteristics determined by [facility] as appropriate for clinical purposes. This assay has not been cleared or approved by the FDA, but is performed in a CLIA regulated laboratory that is qualified to perform high-complexity testing. us Phillip Clark MD LAB MICROBIOLOGY - GENERAL O RDERABLES Final Result [facility] [address] [place] [address] * Multi Drug Resistance Test (06/14/2025 2:37 PM EDT) Culture No growth at day 1 06/15/2025 4:03 PM EDT [facility] Swab (Nares and Smita Rectal) Non-blood Collection / Unknown 06/14/2025 2:37 PM EDT 06/14/2025 3:10 PM EDT Narrative [facility] - 06/15/2025 4:03 PM EDT This test was developed and its performance characteristics determined by the [facility]. Although the media is FDA-approved, it is not FDA-approved for all specimen types submitted. The FDA has determined that such clearance or approval is not necessary. This test is used for surveillance purposes. It should not be regarded as investigational or for research. The [facility] is certified under the Clinical Laboratory Improvement Amendments of 1988 (CLIA-88) as qualified to perform high complexity clinical laboratory testing. Phillip Clark MD LAB MICROBIOLOGY - GENERAL O RDERABLES Final Result [facility] [address] [place] [address] * (ABNORMAL) Blood gas, arterial (06/14/2025 2:37 PM EDT) pH, Arterial 7.31 7.31 - 7.42 LAB HEMATOLOGY METHOD 06/14/2025 2:58 PM EDT [facility] pCO2, Arterial 42 32 - 45 mmHg LAB HEMATOLOGY METHOD 06/14/2025 2:58 PM EDT [facility] pO2, Arterial 154 >80 mmHg LAB HEMATOLOGY METHOD 06/14/2025 2:58 PM EDT [facility] SO2, Measured, Arterial 100(H) 94 - 98 % LAB HEMATOLOGY METHOD 06/14/2025 2:58 PM EDT [facility] Base Excess, Arterial -5.1(L) -2.0 - 3.0 mmol/L LAB HEMATOLOGY METHOD 06/14/2025 2:58 PM EDT [facility] Bicarbonate, Calculated, Arterial 21(L) 22 - 26 mmol/L LAB HEMATOLOGY METHOD 06/14/2025 2:58 PM EDT [facility] Hematocrit, Whole Blood 43.5 40.0 - 51.0 % LAB HEMATOLOGY METHOD 06/14/2025 2:58 PM EDT [facility] Sodium, Whole Blood 139 136 - 145 mmol/L LAB HEMATOLOGY METHOD 06/14/2025 2:58 PM EDT [facility] Potassium, Whole Blood 3.6 3.6 - 4.9 mmol/L LAB HEMATOLOGY METHOD 06/14/2025 2:58 PM EDT [facility] Chloride, Whole Blood 110(H) 97 - 107 mmol/L LAB HEMATOLOGY METHOD 06/14/2025 2:58 PM EDT [facility] Glucose, Whole Blood 131(H) 74 - 99 mg/dL LAB HEMATOLOGY METHOD 06/14/2025 2:58 PM EDT [facility] Ionized Calcium, Whole Blood 4.7 4.6 - 5.1 mg/dL LAB HEMATOLOGY METHOD 06/14/2025 2:58 PM EDT [facility] Lactate, Arterial, Whole Blood 5.0(H) 0.5 - 1.6 mmol/L LAB HEMATOLOGY METHOD 06/14/2025 2:58 PM EDT [facility] Blood Arterial blood specimen / Unknown Arterial Puncture / Unknown 06/14/2025 2:37 PM EDT 06/14/2025 2:57 PM EDT us Phillip Clark MD LAB BLOOD ORDERABLES Final R esult [facility] [address] [place] [address] * ECG Adult - Upon Admissoin to CVICU (06/14/2025 2:36 PM EDT) EKG DIAGNOSIS CLASS Abnormal MUSE ECG Ventricular Rate 61 BPM MUSE ECG Atrial Rate 61 BPM MUSE ECG [place] Interval 176 ms MUSE ECG QRSD Interval 154 ms MUSE ECG QT Interval 520 ms MUSE ECG QTC Interval 523 ms MUSE ECG P [place] 58 degrees MUSE ECG R [place] 113 degrees MUSE ECG T Wave [place] -67 degrees MUSE ECG Diagnosis Sinus rhythm [...] ECG ORDERABLES Final Result Performing Organization Address [facility]/ZIP Co de Phone Number MUSE ECG * Potassium, Plasma (06/14/2025 2:36 PM EDT) Potassium, Plasma 3.8 3.6 - 4.9 mmol/L 06/14/2025 4:13 PM EDT [facility] Comment:Hemolyzed, result ma y be falsely increased. Blood Venous blood specimen / Unknown Venipuncture / Unknown 06/14/2025 2:36 PM EDT 06/14/2025 3:20 PM EDT Phillip Clark MD LAB BLOOD ORDERABLES Final R esult Performing Organization Address [facility] Co de Phone Number [facility] [address] [place] [address] * Hematocrit (06/14/2025 2:36 PM EDT) HCT 42.6 40.0 - 51.0 % LAB HEMATOLOGY METHOD 06/14/2025 4:38 PM EDT [facility] Blood Venous blood specimen / Unknown Venipuncture / Unknown 06/14/2025 2:36 PM EDT 06/14/2025 4:17 PM EDT Phillip Clark MD LAB BLOOD ORDERABLES Final R esult Performing Organization Address [facility] Co de Phone Number [facility] [address] [place] [address] * Hemoglobin (06/14/2025 2:36 PM EDT) HGB 13.9 13.7 - 17.5 g/dL LAB HEMATOLOGY METHOD 06/14/2025 4:38 PM EDT [facility] Blood Venous blood specimen / Unknown Venipuncture / Unknown 06/14/2025 2:36 PM EDT 06/14/2025 4:17 PM EDT Phillip Clark MD LAB BLOOD ORDERABLES Final R esult Performing Organization Address City/[facility]/ZIP Co de Phone Number [facility] [address] [place] [address] * APTT (06/14/2025 2:36 PM EDT) aPTT 29 25 - 35 sec LAB COAGULATION METHOD 06/14/2025 4:11 PM EDT [facility] Blood Venous blood specimen / Unknown Venipuncture / Unknown 06/14/2025 2:36 PM EDT 06/14/2025 3:18 PM EDT Phillip Clark MD LAB BLOOD ORDERABLES Final R esult Performing Organization Address City/[facility] Co de Phone Number [facility] [address] [place] [address] * (ABNORMAL) Protime-INR (06/14/2025 2:36 PM EDT) Prothrombin Time 16.6(H) 12.0 - 14.3 sec LAB COAGULATION METHOD 06/14/2025 4:11 PM EDT [facility] INR 1.3(H) 0.9 - 1.1 LAB COAGULATION METHOD 06/14/2025 4:11 PM EDT [facility] Blood Venous blood specimen / Unknown Venipuncture / Unknown 06/14/2025 2:36 PM EDT 06/14/2025 3:18 PM EDT Narrative [facility] - 06/14/2025 4:11 PM [...] ORDERABLES Final R esult Performing Organization Address [facility]/ZIP Co de Phone Number [facility] [address] [place] [address] * (ABNORMAL) Phosphorus (06/14/2025 2:36 PM EDT) Phosphorus, Plasma 2.3(L) 2.5 - 4.5 mg/dL 06/14/2025 4:13 PM EDT [facility] Blood Venous blood specimen / Unknown Venipuncture / Unknown 06/14/2025 2:36 PM EDT 06/14/2025 3:20 PM EDT Phillip Clark MD LAB BLOOD ORDERABLES Final R esult Performing Organization Address [facility] Co de Phone Number [facility] [address] [place] [address] * (ABNORMAL) Magnesium (06/14/2025 2:36 PM EDT) Pathologist [facility] Magnesium, Plasma 3.2(H) 1.9 - 2.4 mg/dL 06/14/2025 6:55 PM EDT [facility] Blood Venous blood specimen / Unknown Venipuncture / Unknown 06/14/2025 2:36 PM EDT 06/14/2025 3:20 PM EDT Phillip Clark MD LAB BLOOD ORDERABLES Final R esult Performing Organization Address [facility] Co de Phone Number [facility] [address] [place] [address] * (ABNORMAL) Basic metabolic panel (06/14/2025 2:36 PM EDT) Glucose, Plasma 134(H) 74 - 99 mg/dL 06/14/2025 4:13 PM EDT [facility] BUN, Plasma 14 8 - 23 mg/dL 06/14/2025 4:13 PM EDT [facility] Creatinine, Plasma 0.83 0.70 - 1.20 mg/dL 06/14/2025 4:13 PM EDT [facility] BUN/Creatinine Ratio 17 06/14/2025 4:13 PM EDT [facility] Sodium, Plasma 140 136 - 145 mmol/L 06/14/2025 4:13 PM EDT [facility] Potassium, Plasma 3.8 3.6 - 4.9 mmol/L 06/14/2025 4:13 PM EDT [facility] Comment:Hemolyzed, result ma y be falsely increased. Chloride, Plasma 108(H) 97 - 107 mmol/L 06/14/2025 4:13 PM EDT [facility] CO2, Plasma 19(L) 22 - 29 mmol/L 06/14/2025 4:13 PM EDT [facility] Anion Gap 13 6 - 16 mmol/L 06/14/2025 4:13 PM EDT [facility] Total Calcium, Plasma 8.3(L) 8.9 - 10.2 mg/dL 06/14/2025 4:13 PM EDT [facility] eGFRcr 94.7 mL/min/1.7 3m*2 06/14/2025 4:13 PM EDT [facility] Comment:Reported eGFRcr in m L/min/1.73m2 is based the CKD-EPI 2020 equation that does not use a race coefficient. Blood Venous blood specimen / Unknown Venipuncture / Unknown 06/14/2025 2:36 PM EDT 06/14/2025 3:20 PM EDT us Phillip Clark MD LAB BLOOD ORDERABLES Final R esult [facility] [address] [place] [address] * (ABNORMAL) CBC (06/14/2025 2:36 PM EDT) WBC Count 15.83(H) 3.70 - 10.30 10*3/uL LAB HEMATOLOGY METHOD 06/14/2025 4:38 PM EDT [facility] RBC Count 4.98 4.60 - 6.10 10*6/uL LAB HEMATOLOGY METHOD 06/14/2025 4:38 PM EDT [facility] HGB 13.9 13.7 - 17.5 g/dL LAB HEMATOLOGY METHOD 06/14/2025 4:38 PM EDT [facility] HCT 42.6 40.0 - 51.0 % LAB HEMATOLOGY METHOD 06/14/2025 4:38 PM EDT [facility] Platelet Count 160 155 - 369 10*3/uL LAB HEMATOLOGY METHOD 06/14/2025 4:38 PM EDT [facility] MCV 86 79 - 98 fL LAB HEMATOLOGY METHOD 06/14/2025 4:38 PM EDT [facility] MCH 27.9 26.0 - 32.0 pg LAB HEMATOLOGY METHOD 06/14/2025 4:38 PM EDT [facility] MCHC 32.6 30.7 - 35.5 g/dL LAB HEMATOLOGY METHOD 06/14/2025 4:38 PM EDT [facility] RDW 15.2(H) 11.5 - 14.5 % LAB HEMATOLOGY METHOD 06/14/2025 4:38 PM EDT [facility] MPV 10.3 8.8 - 12.5 fL LAB HEMATOLOGY METHOD 06/14/2025 4:38 PM EDT [facility] nRBC 0.0 <=0.0 per 100 WBCs LAB HEMATOLOGY METHOD 06/14/2025 4:38 PM EDT [facility] Blood Venous blood specimen / Unknown Venipuncture / Unknown 06/14/2025 2:36 PM EDT 06/14/2025 4:17 PM EDT us Phillip Clark MD LAB BLOOD ORDERABLES Final R esult [facility] [address] [place] [address] * (ABNORMAL) POCT arterial blood gas gem (06/14/2025 2:00 PM EDT) pH, Arterial 7.35 7.31 - 7.42 06/14/2025 2:02 PM EDT [facility] pCO2, Arterial 38 32 - 45 mm Hg 06/14/2025 2:02 PM EDT [facility] pO2, Arterial 376 >80 mm Hg 06/14/2025 2:02 PM EDT [facility] SO2, Arterial 100(H) 94 - 98 % 06/14/2025 2:02 PM EDT [facility] Base Excess, Arterial -4.2(L) -2 - 3 mmol/L 06/14/2025 2:02 PM EDT [facility] HCO3, Arterial 21.0(L) 22 - 26 mmol/L 06/14/2025 2:02 PM EDT [facility] Total Hemoglobin, Arterial, Whole Blood 14.5 13.7 - 17.5 g/dL 06/14/2025 2:02 PM EDT [facility] Hematocrit, Arterial 44.0 40 - 51.0 % 06/14/2025 2:02 PM EDT [facility] Sodium, Arterial 136 136 - 145 mmol/L 06/14/2025 2:02 PM EDT [facility] Potassium, Arterial 3.4(L) 3.6 - 4.9 mmol/L 06/14/2025 2:02 PM EDT [facility] Chloride, Whole Blood 105 97 - 107 mmol/L 06/14/2025 2:02 PM EDT [facility] Glucose, Arterial 138(H) 74 - 99 mg/dL 06/14/2025 2:02 PM EDT [facility] Ionized Calcium, Arterial 4.9 4.6 - 5.1 mg/dL 06/14/2025 2:02 PM EDT [facility] Lactate, Arterial 4.2(H) 0.5 - 1.6 mmol/L 06/14/2025 2:02 PM EDT [facility] Body Temperature 37.0 Celsius 06/14/2025 2:02 PM EDT [facility] pH, Temp Corrected, Arterial 7.35 7.31 - 7.42 06/14/2025 2:02 PM EDT [facility] pCO2, Temp Corrected, Arterial 38 32 - 45 mm Hg 06/14/2025 2:02 PM EDT [facility] pO2, Temp Corrected, Arterial 376 >80 mm Hg 06/14/2025 2:02 PM EDT [facility] Member Services Representative ID Ricki Zamarripa 06/14/2025 2:02 PM EDT [facility] Blood Whole blood specimen / Unknown 06/14/2025 2:00 PM EDT 06/14/2025 2:02 PM EDT Phillip Clark MD LAB POINT OF CARE TE ST DOCKED DEVICE UNSOLICITED RESULTS Final Result [facility] [address] [place] [address] * (ABNORMAL) POCT arterial blood gas gem (06/14/2025 1:22 PM EDT) pH, Arterial 7.34 7.31 - 7.42 06/14/2025 1:23 PM EDT [facility] pCO2, Arterial 41 32 - 45 mm Hg 06/14/2025 1:23 PM EDT [facility] pO2, Arterial 518 >80 mm Hg 06/14/2025 1:23 PM EDT [facility] SO2, Arterial 100(H) 94 - 98 % 06/14/2025 1:23 PM EDT [facility] Base Excess, Arterial -3.5(L) -2 - 3 mmol/L 06/14/2025 1:23 PM EDT [facility] HCO3, Arterial 22.1 22 - 26 mmol/L 06/14/2025 1:23 PM EDT [facility] Total Hemoglobin, Arterial, Whole Blood 13.2(L) 13.7 - 17.5 g/dL 06/14/2025 1:23 PM EDT [facility] Hematocrit, Arterial 40.0 40 - 51.0 % 06/14/2025 1:23 PM EDT [facility] Sodium, Arterial 139 136 - 145 mmol/L 06/14/2025 1:23 PM EDT [facility] Potassium, Arterial 3.3(L) 3.6 - 4.9 mmol/L 06/14/2025 1:23 PM EDT [facility] Chloride, Whole Blood 104 97 - 107 mmol/L 06/14/2025 1:23 PM EDT [facility] Glucose, Arterial 137(H) 74 - 99 mg/dL 06/14/2025 1:23 PM EDT [facility] Ionized Calcium, Arterial 4.2(L) 4.6 - 5.1 mg/dL 06/14/2025 1:23 PM EDT [facility] Lactate, Arterial 3.0(H) 0.5 - 1.6 mmol/L 06/14/2025 1:23 PM EDT [facility] Body Temperature 37.0 Celsius 06/14/2025 1:23 PM EDT [facility] pH, Temp Corrected, Arterial 7.34 7.31 - 7.42 06/14/2025 1:23 PM EDT [facility] pCO2, Temp Corrected, Arterial 41 32 - 45 mm Hg 06/14/2025 1:23 PM EDT [facility] pO2, Temp Corrected, Arterial 518 >80 mm Hg 06/14/2025 1:23 PM EDT [facility] Member Services Representative ID Ricki Zamarripa 06/14/2025 1:23 PM EDT [facility] Blood Whole blood specimen / Unknown 06/14/2025 1:22 PM EDT 06/14/2025 1:23 PM EDT Phillip Clark MD LAB POINT OF CARE TE ST DOCKED DEVICE UNSOLICITED RESULTS Final Result Performing Organization Address City/State/[facility] Co de Phone Number [facility] [address] [place] [address] * (ABNORMAL) POCT arterial blood gas gem (06/14/2025 12:52 PM EDT) pH, Arterial 7.40 7.31 - 7.42 06/14/2025 12:54 PM EDT [facility] pCO2, Arterial 35 32 - 45 mm Hg 06/14/2025 12:54 PM EDT [facility] pO2, Arterial 399 >80 mm Hg 06/14/2025 12:54 PM EDT [facility] SO2, Arterial 100(H) 94 - 98 % 06/14/2025 12:54 PM EDT [facility] Base Excess, Arterial -2.6(L) -2 - 3 mmol/L 06/14/2025 12:54 PM EDT [facility] HCO3, Arterial 21.7(L) 22 - 26 mmol/L 06/14/2025 12:54 PM EDT [facility] Total Hemoglobin, Arterial, Whole Blood 11.7(L) 13.7 - 17.5 g/dL 06/14/2025 12:54 PM EDT [facility] Hematocrit, Arterial 35.0(L) 40 - 51.0 % 06/14/2025 12:54 PM EDT [facility] Sodium, Arterial 134(L) 136 - 145 mmol/L 06/14/2025 12:54 PM [facility]T [facility] Potassium, Arterial 4.2 3.6 - 4.9 mmol/L 06/14/2025 12:54 PM EDT [facility] Chloride, Whole Blood 107 97 - 107 mmol/L 06/14/2025 12:54 PM EDT [facility] Glucose, Arterial 148(H) 74 - 99 mg/dL 06/14/2025 12:54 PM EDT [facility] Ionized Calcium, Arterial 4.1(L) 4.6 - 5.1 mg/dL 06/14/2025 12:54 PM EDT [facility] Lactate, Arterial 2.2(H) 0.5 - 1.6 mmol/L 06/14/2025 12:54 PM EDT [facility] Body Temperature 37.0 Celsius 06/14/2025 12:54 PM EDT [facility] pH, Temp Corrected, Arterial 7.40 7.31 - 7.42 06/14/2025 12:54 PM EDT [facility] pCO2, Temp Corrected, Arterial 35 32 - 45 mm Hg 06/14/2025 12:54 PM EDT [facility] pO2, Temp Corrected, Arterial 399 >80 mm Hg 06/14/2025 12:54 PM EDT [facility] Member Services Representative ID Jean Claude Staley 06/14/2025 12:54 PM EDT [facility] Blood Whole blood specimen / Unknown 06/14/2025 12:52 PM EDT 06/14/2025 12:54 PM EDT Phillip Clark MD LAB POINT OF CARE TE ST DOCKED DEVICE UNSOLICITED RESULTS Final Result [facility] [address] [place] [address] * POCT ACT (06/14/2025 12:43 PM EDT) ACT+ (HIGH RANGE) 98 68 - 600 Seconds 06/14/2025 12:49 PM EDT [facility] Member Services Representative ID Vick Dupont 06/14/2025 12:49 PM EDT [facility] ACT Device ID [id number] 06/14/2025 12:49 PM EDT [facility] Comment 06/14/2025 12:49 PM EDT [facility] Comment: ACT performed by [...] ST DOCKED DEVICE UNSOLICITED RESULTS Final Result [facility] [address] [facility] [address] [place] [address] * (ABNORMAL) POCT arterial blood gas gem (06/14/2025 12:16 PM EDT) pH, Arterial 7.42 7.31 - 7.42 06/14/2025 12:19 PM EDT [facility] pCO2, Arterial 36 32 - 45 mm Hg 06/14/2025 12:19 PM EDT [facility] pO2, Arterial 358 >80 mm Hg 06/14/2025 12:19 PM EDT [facility] SO2, Arterial 99(H) 94 - 98 % 06/14/2025 12:19 PM EDT [facility] Base Excess, Arterial -0.8 -2 - 3 mmol/L 06/14/2025 12:19 PM EDT [facility] LAB HCO3, Arterial 23.4 22 - 26 mmol/L 06/14/2025 12:19 PM EDT [facility] Total Hemoglobin, Arterial, Whole Blood 11.3(L) 13.7 - 17.5 g/dL 06/14/2025 12:19 PM EDT [facility] Hematocrit, Arterial 34.0(L) 40 - 51.0 % 06/14/2025 12:19 PM EDT [facility] Sodium, Arterial 134(L) 136 - 145 mmol/L 06/14/2025 12:19 PM EDT [facility] Potassium, Arterial 5.7(H) 3.6 - 4.9 mmol/L 06/14/2025 12:19 PM EDT [facility] Chloride, Whole Blood 105 97 - 107 mmol/L 06/14/2025 12:19 PM EDT [facility] Glucose, Arterial 119(H) 74 - 99 mg/dL 06/14/2025 12:19 PM EDT [facility] Ionized Calcium, Arterial 4.0(L) 4.6 - 5.1 mg/dL 06/14/2025 12:19 PM EDT [facility] Lactate, Arterial 1.6 0.5 - 1.6 mmol/L 06/14/2025 12:19 PM EDT [facility] Body Temperature 37.0 Celsius 06/14/2025 12:19 PM EDT [facility] pH, Temp Corrected, Arterial 7.42 7.31 - 7.42 06/14/2025 12:19 PM EDT [facility] pCO2, Temp Corrected, Arterial 36 32 - 45 mm Hg 06/14/2025 12:19 PM EDT [facility] pO2, Temp Corrected, Arterial 358 >80 mm Hg 06/14/2025 12:19 PM EDT [facility] Member Services Representative ID Vick Dupont 06/14/2025 12:19 PM EDT [facility] Blood Whole blood specimen / Unknown 06/14/2025 12:16 PM EDT 06/14/2025 12:19 PM EDT us Phillip Clark MD LAB POINT OF CARE TE ST DOCKED DEVICE UNSOLICITED RESULTS Final Result Performing Organization Address City/State/[facility] Co de Phone Number [facility] [address] [place] [id number] * (ABNORMAL) POCT arterial blood gas gem (06/14/2025 12:06 PM EDT) pH, Arterial 7.39 7.31 - 7.42 06/14/2025 12:09 PM EDT [facility] pCO2, Arterial 40 32 - 45 mm Hg 06/14/2025 12:09 PM EDT [facility] pO2, Arterial 378 >80 mm Hg 06/14/2025 12:09 PM EDT [facility] SO2, Arterial 100(H) 94 - 98 % 06/14/2025 12:09 PM EDT [facility] Base Excess, Arterial -0.7 -2 - 3 mmol/L 06/14/2025 12:09 PM EDT [facility] HCO3, Arterial 24.2 22 - 26 mmol/L 06/14/2025 12:09 PM EDT [facility] Total Hemoglobin, Arterial, Whole Blood 11.5(L) 13.7 - 17.5 g/dL 06/14/2025 12:09 PM EDT [facility] Hematocrit, Arterial 35.0(L) 40 - 51.0 % 06/14/2025 12:09 PM EDT [facility] Sodium, Arterial 134(L) 136 - 145 mmol/L 06/14/2025 12:09 PM EDT [facility] Potassium, Arterial 5.0(H) 3.6 - 4.9 mmol/L 06/14/2025 12:09 PM T [facility] Chloride, Whole Blood 105 97 - 107 mmol/L 06/14/2025 12:09 PM T [facility] Glucose, Arterial 123(H) 74 - 99 mg/dL 06/14/2025 12:09 PM T [facility] Ionized Calcium, Arterial 4.2(L) 4.6 - 5.1 mg/dL 06/14/2025 12:09 PM T [facility] Lactate, Arterial 1.2 0.5 - 1.6 mmol/L 06/14/2025 12:09 PM T [facility] Body Temperature 37.0 Celsius 06/14/2025 12:09 PM T [facility] pH, Temp Corrected, Arterial 7.39 7.31 - 7.42 06/14/2025 12:09 PM T [facility] pCO2, Temp Corrected, Arterial 40 32 - 45 mm Hg 06/14/2025 12:09 PM T [facility] pO2, Temp Corrected, Arterial 378 >80 mm Hg 06/14/2025 12:09 PM EDT [facility] Member Services Representative ID Vick Dupont 06/14/2025 12:09 PM T [facility] Blood Whole blood specimen / Unknown 06/14/2025 12:06 PM EDT 06/14/2025 12:09 PM EDT us Phillip Clark MD LAB POINT OF CARE TE ST DOCKED DEVICE UNSOLICITED RESULTS Final Result Performing Organization Address [facility] Co de Phone Number [facility] [address] [place] [address] * (ABNORMAL) QPLUS (06/14/2025 11:55 AM EDT) [...] 06/14/2025 12:12 PM EDT [facility] Member Services Representative ID Ricki Zamarripa 06/14/2025 12:12 PM EDT [facility] Device ID [id number] 06/14/2025 12:12 PM EDT [facility] Whole Blood 06/14/2025 11:5 5 AM EDT 06/14/2025 12:12 PM EDT Narrative [facility] - 06/14/2025 12:[address]: No Clot Detected Phillip Clark MD LAB POINT OF CARE TE ST DOCKED DEVICE UNSOLICITED RESULTS Final Result [facility] [address] [place] [address] * POCT ACT (06/14/2025 11:54 AM EDT) ACT+ (HIGH RANGE) 510 68 - 600 Seconds 06/14/2025 12:07 PM EDT [facility] Member Services Representative ID Vick Dupont 06/14/2025 12:07 PM EDT [facility] ACT Device ID [id number] 06/14/2025 12:07 PM EDT [facility] Comment 06/14/2025 12:07 PM EDT [facility] Comment: ACT performed by [...] ST DOCKED DEVICE UNSOLICITED RESULTS Final Result [facility] [address] LAB [address] [place] [address] * (ABNORMAL) POCT arterial blood gas gem (06/14/2025 11:33 AM EDT) pH, Arterial 7.37 7.31 - 7.42 06/14/2025 11:35 AM EDT [facility] pCO2, Arterial 43 32 - 45 mm Hg 06/14/2025 11:35 AM EDT [facility] pO2, Arterial 380 >80 mm Hg 06/14/2025 11:35 AM EDT [facility] SO2, Arterial 99(H) 94 - 98 % 06/14/2025 11:35 AM EDT [facility] Base Excess, Arterial -0.5 -2 - 3 mmol/L 06/14/2025 11:35 AM EDT [facility] HCO3, Arterial 24.9 22 - 26 mmol/L 06/14/2025 11:35 AM EDT [facility] Total Hemoglobin, Arterial, Whole Blood 11.5(L) 13.7 - 17.5 g/dL 06/14/2025 11:35 AM EDT [facility] Hematocrit, Arterial 35.0(L) 40 - 51.0 % 06/14/2025 11:35 AM EDT [facility] Sodium, Arterial 134(L) 136 - 145 mmol/L 06/14/2025 11:35 AM EDT [facility] Potassium, Arterial 5.6(H) 3.6 - 4.9 mmol/L 06/14/2025 11:35 AM EDT [facility] Chloride, Whole Blood 103 97 - 107 mmol/L 06/14/2025 11:35 AM EDT [facility] Glucose, Arterial 123(H) 74 - 99 mg/dL 06/14/2025 11:35 AM EDT [facility] Ionized Calcium, Arterial 4.2(L) 4.6 - 5.1 mg/dL 06/14/2025 11:35 AM EDT [facility] Lactate, Arterial 1.0 0.5 - 1.6 mmol/L 06/14/2025 11:35 AM EDT [facility] Body Temperature 37.0 Celsius 06/14/2025 11:35 AM EDT [facility] pH, Temp Corrected, Arterial 7.37 7.31 - 7.42 06/14/2025 11:35 AM EDT [facility] pCO2, Temp Corrected, Arterial 43 32 - 45 mm Hg 06/14/2025 11:35 AM EDT [facility] pO2, Temp Corrected, Arterial 380 >80 mm Hg 06/14/2025 11:35 AM EDT [facility] Member Services Representative ID Vick Dupont 06/14/2025 11:35 AM EDT [facility] Blood Whole blood specimen / Unknown 06/14/2025 11:33 AM EDT 06/14/2025 11:35 AM EDT us Phillip Clark MD LAB POINT OF CARE TE ST DOCKED DEVICE UNSOLICITED RESULTS Final Result Performing Organization Address City/State/[facility] Co de Phone Number [facility] [address] [place] [address] * POCT ACT (06/14/2025 11:24 AM EDT) [facility] Signature ACT+ (HIGH RANGE) 520 68 - 600 Seconds 06/14/2025 11:37 AM EDT [facility] Member Services Representative ID Vick Dupont 06/14/2025 11:37 AM EDT [facility] ACT Device ID [id number] 06/14/2025 11:37 AM EDT [facility] Comment 06/14/2025 11:37 AM EDT [facility] Comment: ACT performed by [...] ST DOCKED DEVICE UNSOLICITED RESULTS Final Result [facility] [address] [place] [address] * (ABNORMAL) POCT arterial blood gas gem (06/14/2025 11:03 AM EDT) pH, Arterial 7.40 7.31 - 7.42 06/14/2025 11:04 AM EDT [facility] pCO2, Arterial 41 32 - 45 mm Hg 06/14/2025 11:04 AM EDT [facility] pO2, Arterial 406 >80 mm Hg 06/14/2025 11:04 AM EDT [facility] SO2, Arterial 100(H) 94 - 98 % 06/14/2025 11:04 AM EDT [facility] Base Excess, Arterial 0.5 -2 - 3 mmol/L 06/14/2025 11:04 AM EDT [facility] HCO3, Arterial 25.4 22 - 26 mmol/L 06/14/2025 11:04 AM EDT [facility] Total Hemoglobin, Arterial, Whole Blood 11.9(L) 13.7 - 17.5 g/dL 06/14/2025 11:04 AM EDT [facility] Hematocrit, Arterial 36.0(L) 40 - 51.0 % 06/14/2025 11:04 AM EDT [facility] Sodium, Arterial 133(L) 136 - 145 mmol/L 06/14/2025 11:04 AM EDT [facility] Potassium, Arterial 5.3(H) 3.6 - 4.9 mmol/L 06/14/2025 11:04 AM EDT [facility] Chloride, Whole Blood 103 97 - 107 mmol/L 06/14/2025 11:04 AM EDT [facility] Glucose, Arterial 121(H) 74 - 99 mg/dL 06/14/2025 11:04 AM EDT [facility] Ionized Calcium, Arterial 4.2(L) 4.6 - 5.1 mg/dL 06/14/2025 11:04 AM EDT [facility] Lactate, Arterial 1.0 0.5 - 1.6 mmol/L 06/14/2025 11:04 AM EDT [facility] Body Temperature 37.0 Celsius 06/14/2025 11:04 AM EDT [facility] pH, Temp Corrected, Arterial 7.40 7.31 - 7.42 06/14/2025 11:04 AM EDT [facility] pCO2, Temp Corrected, Arterial 41 32 - 45 mm Hg 06/14/2025 11:04 AM EDT [facility] pO2, Temp Corrected, Arterial 406 >80 mm Hg 06/14/2025 11:04 AM EDT [facility] Member Services Representative ID Vick Dupont 06/14/2025 11:04 AM EDT [facility] Blood Whole blood specimen / Unknown 06/14/2025 11:03 AM EDT 06/14/2025 11:04 AM EDT us Phillip Clark MD LAB POINT OF CARE TE ST DOCKED DEVICE UNSOLICITED RESULTS Final Result Performing Organization Address City/State/[facility] Co de Phone Number [facility] [address] [place] [address] * POCT ACT (06/14/2025 10:57 AM EDT) ACT+ (HIGH RANGE) 569 68 - 600 Seconds 06/14/2025 11:09 AM EDT [facility] Member Services Representative ID Vick Dupont 06/14/2025 11:09 AM EDT [facility] ACT Device ID [id number] 06/14/2025 11:09 AM EDT [facility] Comment 06/14/2025 11:09 AM EDT [facility] Comment: ACT performed by [...] ST DOCKED DEVICE UNSOLICITED RESULTS Final Result [facility] [address] LAB [address] [place] [address] * (ABNORMAL) POCT arterial blood gas gem (06/14/2025 10:33 AM EDT) pH, Arterial 7.39 7.31 - 7.42 06/14/2025 10:34 AM EDT [facility] pCO2, Arterial 41 32 - 45 mm Hg 06/14/2025 10:34 AM EDT [facility] pO2, Arterial 349 >80 mm Hg 06/14/2025 10:34 AM EDT [facility] SO2, Arterial 99(H) 94 - 98 % 06/14/2025 10:34 AM EDT [facility] Base Excess, Arterial -0.2 -2 - 3 mmol/L 06/14/2025 10:34 AM EDT [facility] HCO3, Arterial 24.8 22 - 26 mmol/L 06/14/2025 10:34 AM EDT [facility] Total Hemoglobin, Arterial, Whole Blood 10.9(L) 13.7 - 17.5 g/dL 06/14/2025 10:34 AM EDT [facility] Hematocrit, Arterial 33.0(L) 40 - 51.0 % 06/14/2025 10:34 AM EDT [facility] Sodium, Arterial 135(L) 136 - 145 mmol/L 06/14/2025 10:34 AM EDT [facility] Potassium, Arterial 4.8 3.6 - 4.9 mmol/L 06/14/2025 10:34 AM EDT [facility] Chloride, Whole Blood 103 97 - 107 mmol/L 06/14/2025 10:34 AM EDT [facility] Glucose, Arterial 116(H) 74 - 99 mg/dL 06/14/2025 10:34 AM EDT [facility] Ionized Calcium, Arterial 4.1(L) 4.6 - 5.1 mg/dL 06/14/2025 10:34 AM EDT [facility] Lactate, Arterial 1.3 0.5 - 1.6 mmol/L 06/14/2025 10:34 AM EDT [facility] Body Temperature 37.0 Celsius 06/14/2025 10:34 AM EDT [facility] pH, Temp Corrected, Arterial 7.39 7.31 - 7.42 06/14/2025 10:34 AM EDT [facility] pCO2, Temp Corrected, Arterial 41 32 - 45 mm Hg 06/14/2025 10:34 AM EDT [facility] pO2, Temp Corrected, Arterial 349 >80 mm Hg 06/14/2025 10:34 AM EDT [facility] Member Services Representative ID Vick Dupont 06/14/2025 10:34 AM EDT [facility] Blood Whole blood specimen / Unknown 06/14/2025 10:33 AM EDT 06/14/2025 10:34 AM EDT Phillip Clark MD LAB POINT OF CARE TE ST DOCKED DEVICE UNSOLICITED RESULTS Final Result [facility] [address] [place] [address] * (ABNORMAL) POCT ACT (06/14/2025 10:26 AM EDT) ACT+ (HIGH RANGE) >600(H) 68 - 600 Seconds 06/14/2025 10:40 AM EDT [facility]ALTH[facility] Member Services Representative ID Vick Dupont 06/14/2025 10:40 AM EDT [facility] ACT Device ID [id number] 06/14/2025 10:40 AM EDT [facility] LAB Comment 06/14/2025 10:40 AM EDT [facility] Comment: ACT performed by [...] UNSOLICITED RESULTS Final Result Performing Organization Address City/[facility]/ZIP Co de Phone Number [facility] [address] LAB [address] [place] [address] * Surgical Pathology Exam (06/14/2025 10:18 AM EDT) Case Report Surgical Pathology Case: [id number] Authorizing Provider: Phillip Clark MD Collected: 06/14/2025 1018 Ordering Location: [facility] A OPERATING ROOM Received: 06/14/2025 1413 Pathologist: Beth Lake MD Specimen: Heart, aortic valve leaflets 06/15/2025 11:44 AM EDT [facility] Final Diagnosis A. AORTIC VALVE LEAFLETS, REPLACEMENT: - FIBROSIS AND MYXOID DEGENERATION. 06/15/2025 11:44 AM EDT [facility] at 1144 EDT Clinical Information Severe aortic regurgitation [I35.1] 06/15/2025 11:44 AM EDT [facility] Gross Description A. AORTIC VALVE LEAFLETS Received fresh and placed in formalin labeled aortic valve leaflets are 2 white-montez soft cardiac leaflets ranging in size from 2.5-4.0 cm in greatest dimension. Vehicle Detailer sections are submitted in cassette A1. Cold Time: 3h 55m April Santos 06/15/2025 11:44 AM EDT [facility] Tissue Heart structure / Unknown 06/14/2025 10:18 AM EDT 06/14/2025 2:13 PM EDT Comment:Pre-op diagnosis: Severe aortic regurgitation [I35.1] us Phillip Clark MD LAB PATHOLOGY ORDERABLES Fin al Result [facility] [address] [place] [address] * (ABNORMAL) POCT arterial blood gas gem (06/14/2025 10:08 AM EDT) pH, Arterial 7.40 7.31 - 7.42 06/14/2025 10:17 AM [facility] pCO2, Arterial 40 32 - 45 mm Hg 06/14/2025 10:17 AM [facility] pO2, Arterial 410 >80 mm Hg 06/14/2025 10:17 AM [facility] SO2, Arterial 100(H) 94 - 98 % 06/14/2025 10:17 AM [facility] Base Excess, Arterial 0.0 -2 - 3 mmol/L 06/14/2025 10:17 AM [facility] HCO3, Arterial 24.8 22 - 26 mmol/L 06/14/2025 10:17 AM [facility] Total Hemoglobin, Arterial, Whole Blood 10.1(L) 13.7 - 17.5 g/dL 06/14/2025 10:17 AM [facility] Hematocrit, Arterial 30.0(L) 40 - 51.0 % 06/14/2025 10:17 AM [facility] Sodium, Arterial 133(L) 136 - 145 mmol/L 06/14/2025 10:17 AM [facility] Potassium, Arterial 4.7 3.6 - 4.9 mmol/L 06/14/2025 10:17 AM [facility] Chloride, Whole Blood 104 97 - 107 mmol/L 06/14/2025 10:17 AM [facility] Glucose, Arterial 122(H) 74 - 99 mg/dL 06/14/2025 10:17 AM [facility] Ionized Calcium, Arterial 3.9(L) 4.6 - 5.1 mg/dL 06/14/2025 10:17 AM [facility] Lactate, Arterial 1.5 0.5 - 1.6 mmol/L 06/14/2025 10:17 AM [facility] Body Temperature 37.0 Celsius 06/14/2025 10:17 AM [facility] pH, Temp Corrected, Arterial 7.40 7.31 - 7.42 06/14/2025 10:17 AM [facility] pCO2, Temp Corrected, Arterial 40 32 - 45 mm Hg 06/14/2025 10:17 AM [facility] pO2, Temp Corrected, Arterial 410 >80 mm Hg 06/14/2025 10:17 AM EDT [facility] Member Services Representative ID Vick Dupont 06/14/2025 10:17 AM EDT [facility]ALTH[facility] LAB Blood Whole blood specimen / Unknown 06/14/2025 10:08 AM EDT 06/14/2025 10:17 AM EDT Phillip Clark MD LAB POINT OF CARE TE ST DOCKED DEVICE UNSOLICITED RESULTS Final Result Performing Organization Address City/[facility]/ZIP Co de Phone Number [facility] [address] [place] [address] * (ABNORMAL) POCT ACT (06/14/2025 10:04 AM EDT) ACT+ (HIGH RANGE) >600(H) 68 - 600 Seconds 06/14/2025 10:19 AM EDT [facility] LAB Member Services Representative ID Vick Dupont 06/14/2025 10:19 AM EDT [facility] ACT Device ID [id number] 06/14/2025 10:19 AM EDT [facility] LAB Comment 06/14/2025 10:19 AM EDT [facility] Comment: ACT performed by [...] UNSOLICITED RESULTS Final Result [facility] [address] [place] [address] * POCT ACT (06/14/2025 8:13 AM EDT) ACT+ (HIGH RANGE) 90 68 - 600 Seconds 06/14/2025 8:20 AM EDT [facility] Member Services Representative ID Kevin Hernandez 06/14/2025 8:20 AM EDT [facility] ACT Device ID [id number] 06/14/2025 8:20 AM EDT [facility] LAB Comment 06/14/2025 8:20 AM EDT [facility] Comment: ACT performed by [...] UNSOLICITED RESULTS Final Result [facility] [address] LAB [address] [place] [address] * (ABNORMAL) POCT arterial blood gas gem (06/14/2025 8:13 AM EDT) pH, Arterial 7.38 7.31 - 7.42 06/14/2025 8:15 AM EDT [facility] pCO2, Arterial 40 32 - 45 mm Hg 06/14/2025 8:15 AM EDT [facility] pO2, Arterial 91 >80 mm Hg 06/14/2025 8:15 AM EDT [facility] SO2, Arterial 99(H) 94 - 98 % 06/14/2025 8:15 AM EDT [facility] Base Excess, Arterial -1.3 -2 - 3 mmol/L 06/14/2025 8:15 AM EDT [facility] HCO3, Arterial 23.7 22 - 26 mmol/L 06/14/2025 8:15 AM EDT [facility] Total Hemoglobin, Arterial, Whole Blood 14.5 13.7 - 17.5 g/dL 06/14/2025 8:15 AM EDT [facility] Hematocrit, Arterial 44.0 40 - 51.0 % 06/14/2025 8:15 AM EDT [facility] Sodium, Arterial 135(L) 136 - 145 mmol/L 06/14/2025 8:15 AM EDT [facility] Potassium, Arterial 4.1 3.6 - 4.9 mmol/L 06/14/2025 8:15 AM EDT [facility] Chloride, Whole Blood 103 97 - 107 mmol/L 06/14/2025 8:15 AM EDT [facility] Glucose, Arterial 95 74 - 99 mg/dL 06/14/2025 8:15 AM EDT [facility] Ionized Calcium, Arterial 4.7 4.6 - 5.1 mg/dL 06/14/2025 8:15 AM EDT [facility] Lactate, Arterial 0.8 0.5 - 1.6 mmol/L 06/14/2025 8:15 AM EDT [facility] Body Temperature 37.0 Celsius 06/14/2025 8:15 AM EDT [facility] pH, Temp Corrected, Arterial 7.38 7.31 - 7.42 06/14/2025 8:15 AM EDT [facility] pCO2, Temp Corrected, Arterial 40 32 - 45 mm Hg 06/14/2025 8:15 AM EDT [facility] pO2, Temp Corrected, Arterial 91 >80 mm Hg 06/14/2025 8:15 AM EDT [facility] Member Services Representative ID Lb Coreas 06/14/2025 8:15 AM EDT [facility] Blood Whole blood specimen / Unknown 06/14/2025 8:13 AM EDT 06/14/2025 8:15 AM EDT Phillip Clark MD LAB POINT OF CARE TE ST DOCKED DEVICE UNSOLICITED RESULTS Final Result Performing Organization Address City/State/[facility] Co de Phone Number [facility] [address] [place] [phone] * Type and Screen (06/14/2025 6:27 AM [...] ORDERABL ES Final Result Performing Organization Address City/[facility] Co de Phone Number BLOOD B[facility] [address] [place] [address], * POCT glucose meter (06/14/2025 6:23 AM [...] Comment 06/14/2025 6:24 AM EDT [facility] Member Services Representative ID Kassi Sinha 06/14/2025 6:24 AM EDT [facility] Device ID [id number] 06/14/2025 6:24 AM EDT [facility] Specimen Type POC Venous 06/14/2025 6:24 AM EDT [facility] Blood Venous blood specimen / Unknown 06/14/2025 6:23 AM EDT 06/14/2025 6:24 AM EDT Phillip Clark MD LAB POINT OF CARE TE ST DOCKED DEVICE UNSOLICITED RESULTS Final Result Performing Organization Address City/[facility] Co de Phone Number [facility] [address] [place] [address] documented in this encounter Visit Diagnoses Diagnosis Aortic valve regurgitation- Primary Aortic valve disorders Severe aortic regurgitation Other secondary hypertension S/P AVR Severe aortic regurgitation BMI 30.0-30.9,adult High cholesterol Pure hypercholesterolemia Diabetes Type II or unspecified type diabetes mellitus without mention of complication, not stated as uncontrolled Hypertension Unspecified essential hypertension CAD (coronary artery disease) Coronary atherosclerosis of unspecified type of vessel, port lions or graft History of coronary angioplasty with insertion of stent Ascending aortic aneurysm (CMS/HCC) Thoracic aneurysm without mention of rupture Benign prostatic hyperplasia Unspecified hyperplasia of prostate without urinary obstruction and other lower urinary tract symptoms (LUTS) Weaning from mechanically assisted ventilation initiated (CMS/[facility]) Severe aortic regurgitation Coronary artery disease [...] add comment - Comment: dose given by shift boss rn @ [address] [place], [place] [address]Daiana instructed abstract writer to hold 0900 dose)2003 (Given - [...] Molina RN)100 (See Alternative - Provider: Vicente Hussien RN)170 (See Alternative - Provider: Vicente Hussein [...] documented as of this encounter Care Teams Assistant County Attorney Relationship Specialty Start Date End Date Kamran Singh MD [address] [place] [id number] PCP - General 02/28/25 documented as of this encounter
--- OUTSIDE RECORDS SUMMARY | 2025-06-24 11:19 | XMS_ITS | Encounter Summary ---
Author Organization [facility] Address [address] [place] [address] Care Team Providers Care Hha Name Role Phone Kamran Singh MD Primary Care Provider +1- [phone] Encounter Details Date Type Department Care Team (Late Contact Info) Description 01/04/2025 Orders Only External Location 800 [place] [address] Provider, External Social History Tobacco Use Types [...] Description 07/07/2025 2:40 PM EST Office Visit [place] [facility] [address], [address] [place] [address] Phillip Clark MD [address] [place] [address] documented as of this encounter Procedures Procedure [...] on filedocumented in this encounter Care Teams Hha Relationship Specialty Start Date End Date Kamran Singh MD [address] [place] [address] PCP - General 02/28/25 documented as of this encounter
--- OUTSIDE RECORDS SUMMARY | 2025-06-24 11:19 | XMS_ITS | Encounter Summary ---
Author Organization [facility] Address [address] [place] [address] Care Team Providers Care Attendant Campground Name Role Phone Kamran Singh MD Primary Care Provider +1- [phone] Encounter Details Date Type Department Care Team (Late st Contact Info) Description 01/28/2025 Orders Only External Location [address] [place] [address] Provider, External Social History Tobacco Use Types [...] Description 07/07/2025 2:40 PM EST Office Visit [place] [facility] [address], [address] [place] [address] Phillip Clark MD [address] [place] [address] documented as of this encounter Procedures Procedure [...] on filedocumented in this encounter Care Teams Attendant Campground Relationship Specialty Start Date End Date Kamran Singh MD [address] [facility] [place] [address] PCP - General 02/28/25 documented as of this encounter
--- OUTSIDE RECORDS SUMMARY | 2025-06-24 11:19 | XMS_ITS | Encounter Summary ---
Author Organization [facility] Address [address] [place] [address] Care Team Providers Care Car Cooper Name Role Phone Kamran Singh MD Primary Care Provider +1- [phone] Encounter Details Date Type Department Care Team [...] Clinic Cardiothoracic [address], [address] [place] [address] Phillip Clark MD [address] [place] [address] documented as of this encounter Visit Diagnoses Not on filedocumented in this encounter Additional Health Concerns Assessment Noted Time A fall risk assessment has been complete d for the patient 05/05/2025 9:58 AM EDT A Body Mass Index follow-up plan has been documented for the patient 05/05/2025 10:51 AM EDT documented as of this encounter Care Teams Car Cooper Relationship Specialty Start Date End Date Kamran Singh MD [address] [place] [address] PCP - General 02/28/25 documented as of this encounter
--- OUTSIDE RECORDS SUMMARY | 2025-06-24 11:19 | XMS_ITS | Encounter Summary ---
Author Organization [facility] Address [address] [place] [address] Care Team Providers Care Property Valuer Name Role Phone Kamran Singh MD Primary Care Provider +1- [phone] Encounter Details Date Type Department Care Team [...] Office Visit [place] [facility] [address], [address] [place] [address] Phillip Clark MD [address] [place] [address] documented as of this encounter Visit Diagnoses Not on filedocumented in this encounter Additional Health Concerns Assessment Noted Time A fall risk assessment has been complete d for the patient 05/05/2025 9:58 AM EDT A Body Mass Index follow-up plan has been documented for the patient 05/05/2025 10:51 AM EDT documented as of this encounter Care Teams Property Valuer Relationship Specialty Start Date End Date Kamran Singh MD [address] [place] [address] PCP - General 02/28/25 documented as of this encounter
--- OUTSIDE RECORDS SUMMARY | 2025-06-24 11:19 | XMS_ITS | Encounter Summary ---
Author Organization [facility] Address [address] [place] [address] Care Team Providers Care Electronic Organ Technician Name Role Phone Kamran Singh MD Primary Care Provider +1- [phone] Encounter Details Date Type Department Care Team [...] Clinic Cardiothoracic [address], [address] [place] [address] Phillip Clark MD [address] [place] [address] documented as of this encounter Visit Diagnoses Not on filedocumented in this encounter Additional Health Concerns Assessment Noted Time A fall risk assessment has been complete d for the patient 04/14/2025 12:34 PM EDT A Body Mass Index follow-up plan has been documented for the patient 04/14/2025 2:26 PM EDT documented as of this encounter Care Teams Electronic Organ Technician Relationship Specialty Start Date End Date Kamran Singh MD [address] [place] [address] PCP - General 02/28/25 documented as of this encounter
--- OUTSIDE RECORDS SUMMARY | 2025-06-24 11:20 | XMS_ITS | Encounter Summary ---
Author Organization [facility] Address [address] [place] [address] Care Team Providers Care Woodenware Assembler Name Role Phone Kamran Singh MD Primary Care Provider +1- [phone] Encounter Details Date Type Department Care Team [...] Office Visit [place] [facility] [address], [address] [place] [address] Phillip Clark MD [address] [place] [address] documented as of this encounter Visit Diagnoses Not on filedocumented in this encounter Additional Health Concerns Assessment Noted Time A fall risk assessment has been complete d for the patient 06/09/2025 12:15 PM EDT A Body Mass Index follow-up plan has been documented for the patient 06/09/2025 2:00 PM EDT documented as of this encounter Care Teams Woodenware Assembler Relationship Specialty Start Date End Date Kamran Singh MD [address] [place] [address] PCP - General 02/28/25 documented as of this encounter
--- OUTSIDE RECORDS SUMMARY | 2025-06-24 11:20 | XMS_ITS | Encounter Summary ---
Author Organization [facility] Address [address] [place] [id number] Care Team Providers Care Big Data Admin Name Role Phone Kamran Singh MD Primary Care Provider +1- [phone] Encounter Details Date Type Department Care Team [...] any time in the past 12 m [facility], were you homeless or living in a chcf (including now)? No 06/15/2025 [facility] Utilities Answer Date Recorded In the past [...] Office Visit [place] [facility] [address], [address] [place] [address] Phillip Clark MD [address] [place] [address] documented as of this encounter Visit Diagnoses Not on filedocumented in this encounter Additional Health Concerns Assessment Noted Time A fall risk assessment has been complete d for the patient 06/09/2025 12:15 PM EDT A Body Mass Index follow-up plan has been documented for the patient 06/20/2025 10:30 AM EDT documented as of this encounter Care Teams Big Data Admin Relationship Specialty Start Date End Date Kamran Singh MD [address] [place] [address] PCP - General 02/28/25 documented as of this encounter
--- OUTSIDE RECORDS SUMMARY | 2025-06-24 11:20 | XMS_ITS | Encounter Summary ---
Author Organization [facility] Address [address] [place] [id number] Care Team Providers Care Shuttlecock Assembler Name Role Phone Kamran Singh MD Primary Care Provider +1- [phone] Encounter Details Date Type Department Care Team [...] any time in the past 12 m [facility], were you homeless or living in a senior care (including now)? No 06/15/2025 [facility] Utilities Answer Date Recorded In [...] 1 Month) No 06/16/2025 8:00 PM EDT Eloina Molina RN 6. Suicidal Behavior (Lifetime) No 8:00 PM ELLIT Lori Molina RN documented as of this encounter Plan of Treatment Upcoming Encounters Date Type Department Care Team (Late st Contact Info) Description 07/07/2025 2:40 PM EST Office Visit [place] [facility] [address], [address] [place] [address] Phillip Clark MD [address] [place] [address] documented as of this encounter Visit Diagnoses Not on filedocumented in this encounter Additional Health Concerns Assessment Noted Time A fall risk assessment has been complete d for the patient 06/09/2025 12:15 PM EDT A Body Mass Index follow-up plan has been documented for the patient 06/20/2025 10:30 AM EDT documented as of this encounter Care Teams Shuttlecock Assembler Relationship Specialty Start Date End Date Kamran Singh MD [address] [place] [address] PCP - General 02/28/25 documented as of this encounter
--- OUTSIDE RECORDS SUMMARY | 2025-06-24 11:20 | XMS_ITS | Encounter Summary ---
Author Organization [facility] Address [address] [place] [address] Care Team Providers Care Mixer Lever Operator Name Role Phone Kamran Singh MD Primary Care Provider +1- [phone] Encounter Details Date Type Department Care Team [...] Clinic Cardiothoracic [address], [address] [place] [address] Phillip Clark MD [address] [place] [address] documented as of this encounter Visit Diagnoses Not on filedocumented in this encounter Additional Health Concerns Assessment Noted Time A fall risk assessment has been complete d for the patient 05/05/2025 9:58 AM EDT A Body Mass Index follow-up plan has been documented for the patient 05/05/2025 10:51 AM EDT documented as of this encounter Care Teams Mixer Lever Operator Relationship Specialty Start Date End Date Kamran Singh MD [address] [place] [address] PCP - General 02/28/25 documented as of this encounter
--- OUTSIDE RECORDS SUMMARY | 2025-06-24 11:20 | XMS_ITS | Encounter Summary ---
Author Organization [facility] Address [address] [place] [id number] Care Team Providers Care Automotive Window Tinter Name Role Phone Kamran Singh MD Primary Care Provider +1- [phone] Encounter Details Date Type Department Care Team [...] in a jail (including now)? No 06/15/2025 [facility] Utilities Answer Date Recorded In the [...] Clinic Cardiothoracic [address], [address] [place] [address] Phillip Clark MD [address] [place] [address] documented as of this encounter Visit Diagnoses Not on filedocumented in this encounter Additional Health Concerns Assessment Noted Time A fall risk assessment has been complete d for the patient 06/09/2025 12:15 PM EDT A Body Mass Index follow-up plan has been documented for the patient 06/20/2025 10:30 AM EDT documented as of this encounter Care Teams Automotive Window Tinter Relationship Specialty Start Date End Date Kamran Singh MD [address] [facility] [place] [address] PCP - General 02/28/25 documented as of this encounter
--- OUTSIDE RECORDS SUMMARY | 2025-06-24 11:20 | XMS_ITS | Encounter Summary ---
Author Organization [facility] Address [address] [place] [id number] Care Team Providers Care Whip Sawyer Name Role Phone Kamran Singh MD Primary Care Provider +1- [phone] Encounter Details Date Type Department Care Team [...] any time in the past 12 m [facility], were you homeless or living in a residential (including now)? No 06/15/2025 [place] Utilities Answer Date Recorded In the past [...] Office Visit [place] [facility] [address], [address] [place] [address] Phillip Clark MD [address] [place] [address] documented as of this encounter Visit Diagnoses Not on filedocumented in this encounter Additional Health Concerns Assessment Noted Time A fall risk assessment has been complete d for the patient 06/09/2025 12:15 PM EDT A Body Mass Index follow-up plan has been documented for the patient 06/20/2025 10:30 AM EDT documented as of this encounter Care Teams Whip Sawyer Relationship Specialty Start Date End Date Kamran Singh MD [address] [place] [address] PCP - General 02/28/25 documented as of this encounter
--- OUTSIDE RECORDS SUMMARY | 2025-06-24 11:21 | XMS_ITS | Encounter Summary ---
Author Organization [facility] Address [address] [place] [address] Care Team Providers Care Vendor Relationship Manager Name Role Phone Kamran Singh MD Primary Care Provider +1- [phone] Encounter Details Date Type Department Care Team [...] time in the past 12 m [facility], were you homeless or living in a snf (including now)? No 06/15/2025 [facility] Utilities Answer Date Recorded [...] Clinic Cardiothoracic [address], [address] [place] [address] Phillip Clark MD [address] [place] [address] documented as of this encounter Visit Diagnoses Not on filedocumented in this encounter Additional Health Concerns Assessment Noted Time A fall risk assessment has been complete d for the patient 06/09/2025 12:15 PM EDT A Body Mass Index follow-up plan has been documented for the patient 06/20/2025 10:30 AM EDT documented as of this encounter Care Teams Vendor Relationship Manager Relationship Specialty Start Date End Date Kamran Singh MD [address] [place] [address] PCP - General 02/28/25 documented as of this encounter
--- OUTSIDE RECORDS SUMMARY | 2025-06-24 11:21 | XMS_ITS | Encounter Summary ---
Author Organization [facility] Address [address] [place] [id number] Care Team Providers Care Loan Representative Name Role Phone Kamran Singh MD Primary Care Provider +1- [phone] Encounter Details Date Type Department Care Team [...] in a penitentiary (including now)? No 06/15/2025 [facility] Utilities Answer Date Recorded In [...] Clinic Cardiothoracic [address], [address] [place] [address] Phillip Clark MD [address] [place] [address] documented as of this encounter Visit Diagnoses Not on filedocumented in this encounter Additional Health Concerns Assessment Noted Time A fall risk assessment has been complete d for the patient 06/09/2025 12:15 PM EDT A Body Mass Index follow-up plan has been documented for the patient 06/20/2025 10:30 AM EDT documented as of this encounter Care Teams Loan Representative Relationship Specialty Start Date End Date Kamran Singh MD [address] [facility] [place] [address] PCP - General 02/28/25 documented as of this encounter
--- OUTSIDE RECORDS SUMMARY | 2025-06-24 11:21 | XMS_ITS | Encounter Summary ---
Author Organization [facility] Address [address] [place] [id number] Care Team Providers Care Crime Scene Examiner Name Role Phone Kamran Singh MD Primary Care Provider +1- [phone] Encounter Details Date Type Department Care Team [...] Clinic Cardioth[facility] [address], [address] [place] [address] Phillip Clark MD [address] [place] [address] documented as of this encounter Visit Diagnoses Not on filedocumented in this encounter Additional Health Concerns Assessment Noted Time A fall risk assessment has been complete d for the patient 06/09/2025 12:15 PM EDT A Body Mass Index follow-up plan has been documented for the patient 06/20/2025 10:30 AM EDT documented as of this encounter Care Teams Crime Scene Examiner Relationship Specialty Start Date End Date Kamran Singh MD [address] [facility] [place] [address] PCP - General 02/28/25 documented as of this encounter
--- OUTSIDE RECORDS SUMMARY | 2025-06-24 11:22 | XMS_ITS | Clinical Summary ---
Author Organization [facility] Address [address] [place] [id number] Care Team Providers Care Media Relations Director Name Role Phone Kamran Singh MD Primary Care Provider +1- [phone] Allergies Active Allergy Reactions Criticality Noted Date [...] for 3 days only. 3 tablet Active spironolactone (Aldactone) 25 MG tablet Take [...] 2 tablets by mouth every morning. Under [facility] law, monthly prescriptions (30 days) can be [...] 1 tablet by mouth daily. 2024 Discontinued ASPIRIN 81 MG chewable tablet Chew 1 tablet daily. 2024 Discontinued(S top Taking at Discharge) potassium chloride CR (Klor-Con M20) 20 MEQ ER tablet Take 1 tablet by mouth daily for 3 days. Do not crush or chew. Take for 3 days only; to be taken with Lasix (furosemide) 40mg once daily for 3 days only. 3 tablet 2024 Active Problems Problem Noted Date Diagnosed Date [...] EDT Surgery [facility] [address] [place] [address] Phillip Clark MD Aortic valve replacement [46508 (CPT )] 06/14/2025 7:45 AM EDT Anesthesia Event [facility] [address] [place] [address] Jean Claude Staley MD Burns, Jonathon R, DO 06/14/2025 5:18 AM EDT - 06/20/2025 2:25 PM EDT Hospital Encounter [facility] Inpatient [address] [place] [address] Phillip Clark MD Other secondary hypertension (Primary Dx); Severe aortic regurgitation; S/P AVR Discharge Disposition: Home or Self Care 06/14/2025 Travel 06/09/2025 1:42 PM EDT - 06/09/2025 11:59 PM EDT [facility] [address], [address] [place] [address] Severe aortic regurgitation Discharge Disposition: Home or Self Care 06/09/2025 12:20 PM EDT Office Visit [facility] [address], [address] [place] [address] Phillip Clark MD Severe aortic regurgitation (Primary Dx) 06/09/2025 Travel 06/07/2025 8:30 AM EDT Pre-Admission Testing [facility] [address], [address] [place] [address] 06/07/2025 Travel 06/02/2025 Travel 05/05/2025 10:20 AM EDT Office Visit [facility] [address], [address] [place] [address] Phillip Clark MD Severe aortic regurgitation (Primary Dx) 05/05/2025 Travel 04/28/2025 Travel 04/14/2025 1:00 PM EDT Office Visit [facility] [address], [address] [place] [address] Phillip Clark MD Ascending aortic aneurysm, unspecified whether ruptured (CMS/HCC) (Primary Dx); Aortic valve insufficiency, etiology of cardiac valve disease unspecified 04/14/2025 7:13 AM EDT - 04/14/2025 11:59 PM EDT Hospital Encounter [facility] [address] [place] [address] Ascending aortic aneurysm, unspecified whether ruptured (CMS/HCC) [...] in a long-term (including now)? No 06/15/2025 [facility] Utilities Answer Date Recorded In the [...] [facility] [address], [facility] [address] [place] [address] Phillip Clark MD [address] [place] [address] Health Maintenance Due Date Last Done Comments [...] - Risk 60-74 years 1-dose series) 2015 [id number] Vaccine ( season) 2025 06/22/2022, 01/19/2022, 07/12/2021, [...] this topic Medical Devices Implanted Type Area Drier Take Off Tender Device Identifier Shelf Expiration Date Model / Serial / Lot Graft Ptch 6x6in [id number] [place] - [id number] Implanted:Qty: 1 on 06/14/2025 by Phillip Clark MD at [facility] N/A: Heart [employer]-[id number] / / Valve Atrial 25mm Rotatabl Cuf Std Ptfe - [id number] - [id number] Implanted:Qty: 1 on 06/14/2025 by Phillip Clark MD at [facility] N/A: Heart [id number] 03/28/2030 [facility] / [id number] / [id number] Procedures Procedure Name Priority Date/Time Associated Diagnosis [...] 3 PM EDT MAGNESIUM, PLASMA Routine 06/14/2025 8: 03 PM EDT CBC W/O DIFFERENTIAL Timed 06/14/2025 [...] IMAGING PLACEHOLDER Routine 06/14/2025 8:32 AM EDT SD INSERT/PLACE FLOW DIRECT CATH Routine 06/14/2025 8:32 AM EDT ANESTHESIA ULTRASOUND GUIDED Routine 06/14/2025 8:32 AM EDT PB ANESTHESIA NON-TIMED PROCEDURE PLACEHOLDER Routine 06/14/2025 8:32 AM EDT SD AN CENTRAL LINE DOUBLE LUMEN Routine 06/14/2025 8:32 AM EDT PB ANESTHESIA PLACEHOLDER Routine 06/14/2025 8:16 AM EDT SD AN ELECTIVE ENDOTRACHEAL AIRWAY Routine 06/14/2025 8:16 AM EDT POCT ACT UNSOLICITED RESULTS Routine 06/14/2025 8:13 AM EDT POCT ARTERIAL BLOOD GAS GEM UNSOLICITED RESULTS Routine 06/14/2025 8:13 AM EDT PB ANESTHESIA NON-TIMED PROCEDURE PLACEHOLDER Routine 06/14/2025 8:08 AM EDT SD -AORT GRF W/CARD BYP [...] INR 2.5 to 3.5 Prevention of recurrent RI INR 2.5 to 3.5 us Phillip Clark MD LAB BLOOD ORDERABLES Final R esult [facility] [address] [place] [address] * (ABNORMAL) CBC (06/20/2025 1:52 AM EDT) [...] ORDERABLES Final R esult Performing Organization Address [facility] Co de Phone Number [facility] [address] [place] [address] * Phosphorus (06/20/2025 1:52 AM EDT) Only the most recent of8 resultswithin the time period is included. Phosphorus, Plasma 2.8 2.5 - 4.5 mg/dL 06/20/2025 2:23 AM EDT [facility] Blood Venous blood specimen / Unknown Venipuncture / Unknown 06/20/2025 1:52 AM EDT 06/20/2025 1:59 AM EDT Phillip Clark MD LAB BLOOD ORDERABLES Final R esult Performing Organization Address [facility] Co de Phone Number [facility] [address] [place] [address] * Magnesium (06/20/2025 1:52 AM EDT) Only the most recent of10 resultswithin the time period is included. Magnesium, Plasma 2.2 1.9 - 2.4 mg/dL 06/20/2025 2:23 AM EDT [facility] Blood Venous blood specimen / Unknown Venipuncture / Unknown 06/20/2025 1:52 AM EDT 06/20/2025 1:59 AM EDT Phillip Clark MD LAB BLOOD ORDERABLES Final R esult Performing Organization Address [facility] Co de Phone Number [facility] [address] [place] [address] * (ABNORMAL) Basic metabolic panel (06/20/2025 1:52 [...] R esult [facility] [address] [place] [address] * PERIPHERAL IV (SMARTFORM LINK) (06/20/2025 1:47 [...] QTC Interval 478 ms MUSE ECG P Basalt 43 degrees MUSE ECG R Basalt -30 degrees MUSE ECG T Wave Basalt 36 degrees MUSE ECG Diagnosis Poor data quality, interpretation may be adversely affected MUSE ECG Diagnosis Sinus rhythm with premature supraventricular complexes and with occasional premature ventricular complexes MUSE ECG Diagnosis Left axis deviation MUSE ECG Diagnosis Poor R-wave progression MUSE ECG Diagnosis Abnormal ECG MUSE ECG Diagnosis Recommend repeat ECG MUSE ECG Diagnosis MUSE ECG Diagnosis Confirmed by Aman Coe ([id number]) on 06/19/2025 1:33:10 PM MUSE ECG 06/19/2025 [...] R esult [facility] [address] [place] [address] * SD CRITICAL CARE, E/M 30-74 MINUTES [...] for testing. Comment 06/16/2025 8:45 AM EDT [facility] Acct Exec ID Fariba Blanton 025 8:45 AM EDT [facility] Device ID [id number] 06/16/2025 8:45 AM EDT [facility] Specimen Type POC Arterial 06/16/2025 8:45 AM EDT [facility] Blood Arterial blood specimen / Unknown 06/16/2025 8:40 AM EDT 06/16/2025 8:45 AM EDT us Phillip Clark MD LAB POINT OF CARE TE ST DOCKED DEVICE UNSOLICITED RESULTS Final Result [facility] [address] [place] [address] * XR Abdomen 1 View (06/16/2025 1:20 [...] R esult [facility] [address] [place] [address] * SD CRITICAL CARE, E/M 30-74 MINUTES [...] ORDERABLES Final R esult Performing Organization Address [facility] [place] [address] * Ionized calcium, whole blood (06/15/2025 6:40 AM EDT) Ionized Calcium, Whole Blood 4.6 4.6 - 5.1 mg/dL LAB HEMATOLOGY METHOD 06/15/2025 6:50 AM EDT [facility] Blood Arterial blood specimen / Unknown Venipuncture / Unknown 06/15/2025 6:40 AM EDT 06/15/2025 6:48 AM EDT Phillip Clark MD LAB BLOOD ORDERABLES Final R esult Performing Organization Address [facility] [place] [address] * SD CRITICAL CARE, ADDL 30 MIN, [...] ORDERABLES Final R esult Performing Organization Address City/[facility] Co de Phone Number [facility] [address] [place] [address] * (ABNORMAL) Hemoglobin (06/15/2025 12:20 AM EDT) Only the most recent of2 resultswithin the time period is included. HGB 13.6(L) 13.7 - 17.5 g/dL LAB HEMATOLOGY METHOD 06/15/2025 12:36 AM EDT [facility] Blood Venous blood specimen / Unknown Venipuncture / Unknown 06/15/2025 12:20 AM EDT 06/15/2025 12:26 AM EDT Phillip Clark MD LAB BLOOD ORDERABLES Final R [facility] Performing Organization Address [facility] Co de Phone Number [facility] [address] [place] [address] * Hematocrit (06/15/2025 12:20 AM EDT) Only the most recent of2 resultswithin the time period is included. [facility] HCT 41.0 40.0 - 51.0 % LAB HEMATOLOGY METHOD 06/15/2025 12:36 AM EDT [facility] Blood Venous blood specimen / Unknown Venipuncture / Unknown 06/15/2025 12:20 AM EDT 06/15/2025 12:26 AM EDT Phillip Clark MD LAB BLOOD ORDERABLES Final R [facility] Performing Organization Address City/[facility] Co de Phone Number [facility] [address] [place] [address] * Potassium, Plasma (06/15/2025 12:20 AM EDT) Only the most recent of3 resultswithin the time period is included. Potassium, Plasma 4.5 3.6 - 4.9 mmol/L 06/15/2025 12:51 AM EDT [facility] Blood Venous blood specimen / Unknown Venipuncture / Unknown 06/15/2025 12:20 AM EDT 06/15/2025 12:26 AM EDT us Phillip Clark MD LAB BLOOD ORDERABLES Final R esult [facility] [address] [place] [address] * SD CRITICAL CARE, E/M 30-74 MINUTES [...] ORDERABLES Final R esult Performing Organization Address [facility] Co de Phone Number [facility] [address] [place] [address] * Eli auris Surveillance by PCR (06/14/2025 2:37 PM EDT) Eli auris PCR Result Not Detected Not Detected 06/15/2025 12:46 PM EDT [facility] Swab (Axilla and Groin) Non-blood Collection / Unknown 06/14/2025 2:37 PM EDT 06/14/2025 3:10 PM EDT Narrative [facility] - 06/15/2025 12:46 PM EDT This PCR assay was developed and its performance characteristics determined by [facility] as appropriate for clinical purposes. This assay has not been cleared or approved by the FDA, but is performed in a CLIA regulated laboratory that is qualified to perform high-complexity testing. Phillip Clark MD LAB MICROBIOLOGY - GENERAL O RDERABLES Final Result Performing Organization Address [facility] [place] [address] * Multi Drug Resistance Test (06/14/2025 2:37 PM EDT) Pathologist [facility] Culture No growth at day 1 06/15/2025 4:03 PM EDT [facility] Swab (Nares and Smita Rectal) Non-blood Collection / Unknown 06/14/2025 2:37 PM EDT 06/14/2025 3:10 PM EDT Narrative [facility] - 06/15/2025 4:03 PM EDT This test was developed and its performance characteristics determined by the [facility]. Although the media is FDA-approved, it is not FDA-approved for all specimen types submitted. The FDA has determined that such clearance or approval is not necessary. This test is used for surveillance purposes. It should not be regarded as investigational or for research. The [facility] is certified under the Clinical Laboratory Improvement Amendments of 1988 (CLIA-88) as qualified to perform high complexity clinical laboratory testing. us Phillip Clark MD LAB MICROBIOLOGY - GENERAL O RDERABLES Final Result Performing Organization Address [facility] Co de Phone Number [facility] [address] [place] [address] * APTT (06/14/2025 2:36 PM EDT) Only [...] ORDERABLES Final R esult Performing Organization Address [facility] [place] [address] * PB POINT OF CARE IMAGING PLACEHOLDER [...] mcg/kg/min) RV: same as baseline Aortic valve: [place] valve replaced by mechanical valve. New valve [...] 7.31 - 7.42 06/14/2025 2:02 PM EDT [facility] pCO2, Arterial 38 32 - [...] - 17.5 g/dL 06/14/2025 2:02 PM EDT [facility] Hematocrit, Arterial 44.0 40 - 51.0 % 06/14/2025 2:02 PM EDT [facility] Sodium, Arterial 136 136 - 145 mmol/L 06/14/2025 2:02 PM EDT [facility] Potassium, Arterial 3.4(L) 3.6 - 4.9 mmol/L 06/14/2025 2:02 PM EDT [facility] Chloride, Whole Blood 105 97 - 107 mmol/L 06/14/2025 2:02 PM EDT [facility] Glucose, Arterial 138(H) 74 - 99 mg/dL 06/14/2025 2:02 PM EDT [facility] Ionized Calcium, Arterial 4.9 4.6 - 5.1 mg/dL 06/14/2025 2:02 PM EDT [facility] Lactate, Arterial 4.2(H) 0.5 - 1.6 mmol/L 06/14/2025 2:02 PM EDT [facility] Body Temperature 37.0 Celsius 06/14/2025 2:02 PM EDT [facility] pH, Temp Corrected, Arterial 7.35 7.31 - 7.42 06/14/2025 2:02 PM EDT [facility] pCO2, Temp Corrected, Arterial 38 32 - 45 mm Hg 06/14/2025 2:02 PM EDT [facility] pO2, Temp Corrected, Arterial 376 >80 mm Hg 06/14/2025 2:02 PM EDT [facility] Acct Exec ID Ricki Zamarripa 06/14/2025 2:02 PM EDT [facility] Blood Whole blood specimen / Unknown 06/14/2025 2:00 PM EDT 06/14/2025 2:02 PM EDT us Phillip Clark MD LAB POINT OF CARE TE ST DOCKED DEVICE UNSOLICITED RESULTS Final Result [facility] [address] [place] [address] * POCT ACT (06/14/2025 12:43 PM EDT) Only the most recent of7 resultswithin the time period is included. [facility] ACT+ (HIGH RANGE) 98 68 - 600 Seconds 06/14/2025 12:49 PM EDT [facility]ALTH[facility]ARE LAB Acct Exec ID Vick Dupont 06/14/2025 12:49 PM EDT [facility] ACT Device ID [id number] 06/14/2025 12:49 PM EDT [facility] Comment 06/14/2025 12:49 PM EDT [facility] [...] UNSOLICITED RESULTS Final Result Performing Organization Address City/State/[facility] Co de Phone Number HEALTHCARE LAB [address] LAB [address] [place] [address] * (ABNORMAL) QPLUS (06/14/2025 11:55 AM EDT) [facility] Clot Time 06/14/2025 12:12 PM EDT HEALTHCARE [...] Seconds 06/14/2025 12:12 PM EDT HEALTHCARE LAB Acct Exec ID Ricki Zamarripa 06/14/2025 12:12 PM EDT HEALTHCARE LAB Device ID [id number] 06/14/2025 12:12 PM EDT [facility] Whole Blood 06/14/2025 11:5 5 AM EDT 06/14/2025 12:12 PM EDT Narrative [facility] - 06/14/2025 12:[address]: No Clot Detected us Phillip Clark MD LAB POINT OF CARE TE ST DOCKED DEVICE UNSOLICITED RESULTS Final Result Performing Organization Address City/[facility]/ZIP Co de Phone Number [facility] [address] [place] [address] * Surgical Pathology Exam (06/14/2025 10:18 AM EDT) Case Report Surgical Pathology Case: [id number] Authorizing Provider: Phillip Clark MD Collected: 06/14/2025 1018 Ordering Location: [facility] OPERATING [facility] Received: 06/14/2025 1413 Pathologist: Beth [...] size from 2.5-4.0 cm in greatest dimension. Barn Worker sections are submitted in cassette A1. Cold Time: 3h 55m April Levon Danielle 06/15/2025 11:44 AM EDT [facility] Tissue Heart structure / Unknown 06/14/2025 10:18 AM EDT 06/14/2025 2:13 PM EDT Comment:Pre-op diagnosis: Severe aortic regurgitation [I35.1] us Phillip Clark MD LAB PATHOLOGY ORDERABLES Fin al Result Performing Organization Address City/[facility]/ZIP Co de Phone Number [facility] [address] [place] [address] * SD AN CENTRAL LINE DOUBLE LUMEN, PB ANESTHESIA NON-TIMED PROCEDURE PLACEHOLDER, ANESTHESIA ULTRASOUND GUIDED, SD INSERT/PLACE FLOW DIRECT CATH, PB POINT OF [...] Performed: Other Anesthesia Staff Anesthesiologist: Jean Claude Stlaey MD Other anesthesia staff: Ricki Zamarripa DO Ultrasound was used to visualize vascular needle entry into the internal jugular vessel AND ultrasound image was retained. Ultrasound was used to visualize vascular needle entry into the internal jugular vein AND ultrasound image was retained. us Jean Claude Stalye MD ANESTHESIA ORDERABLES Final Resu lt * SD AN ELECTIVE ENDOTRACHEAL AIRWAY, PB ANESTHESIA PLACEHOLDER [...] ORDERABL ES Final Result Performing Organization Address [facility] de Phone Number BLOOD BANK [address] [place] [address], [place] * Type & Screen, 30 Days [...] PM EDT 06/09/2025 1:40 PM EDT Phillip Calrk MD LAB BLOOD BANK TEST ORDERABL ES Final Result Performing Organization Address City/[facility]/ZIP Co de Phone Number BLOOD BANK [address] * (ABNORMAL) Hemoglobin A1c (06/09/2025 1:39 [...] Adults <6.0% Children and Adolescents <7.5% Source: [employer]. Standards of medical care in diabetes,2017. Diabetes Care.2017:40 (suppl 1):S1-S135. Phillip Clark MD LAB BLOOD ORDERABLES Final R esult [facility] [address] [place] [address] * Comprehensive Metabolic Panel, Plasma (06/09/2025 1:39 [...] esult [facility] [address] [place] [address] * CT Chest wo IV Contrast (04/14/2025 [...] Resu lt from [place] [address] [place] [address] [facility] MEDICARE Advance Directives * Full Code (Latest Code Status on File) Date Activated Date Inactivated Comments 06/14/2025 2:35 PM 06/20/2025 4:27 PM Question Answer Comments I have reviewed the capacity from the link above and, if needed, have updated to appropriate status: Yes Care Teams Media Relations Director Relationship Specialty Start Date End Date Kamran Singh MD [address] [place] [address] PCP - General 02/28/25
[2025-06-24 13:55] LABS: PHA INR Fingerstick 3.1 (0.9-1.1)
== END 2025-06-24 13:57 ==
PROVIDERS: PCP Family Medicine; Visit Provider Nurse Practitioner
DX: Z79.01 Long term (current) use of anticoagulants (principal); Z95.2 Presence of prosthetic heart valve
CPT/HCPCS: 85610; 99211; G0463

== ENCOUNTER 2025-06-27 10:10 | Outpatient (CLI) | payer BC, MEDICARE, SELFPAY ==
--- OUTSIDE RECORDS SUMMARY | 2025-05-05 10:20 | XMS_ITS | Encounter Summary ---
Author Organization [facility] Address [address] [id number] Care Team Providers Care Chorus Dancer Name Role Phone Kamran Singh MD Primary Care Provider +1- [phone] Encounter Details Date Type Department Care Team (Latest Contact Info) Description 05/05/2025 10:20 AM EDT Office Visit [facility] [address], [address] [place] [address] Phillip Clark MD [address] [place] [address] Severe aortic regurgitation (Primary Dx) [...] present and normoactive x 4 quadrants SKIN: [place], warm, and dry. No rash, sores, or [...] Description 07/07/2025 2:40 PM EST Office Visit [facility] [address], [address] [place] [address] Phillip Clark MD [address] [place] [address] documented as of this encounter Visit Diagnoses Diagnosis Severe aortic regurgitation- Primary documented in this encounter Additional Health Concerns Assessment Noted Time A fall risk assessment has been complete d for the patient 05/05/2025 9:58 AM EDT A Body Mass Index follow-up plan has been documented for the patient 05/05/2025 10:51 AM EDT documented as of this encounter Care Teams Chorus Dancer Relationship Specialty Start Date End Date Kamran Singh MD [address] [place] [address] PCP - General 02/28/25 documented as of this encounter
--- OUTSIDE RECORDS SUMMARY | 2025-06-07 08:30 | XMS_ITS | Encounter Summary ---
Author Organization [facility] Address [address] [place] [address] Care Team Providers Care Pumper Helper Name Role Phone Kamran Singh MD Primary Care Provider [phone]- [phone] Encounter Details Date Type Department Care Team (Late st Contact Info) Description 06/07/2025 8:30 AM EDT Pre-Admission Testing [place] [facility] [address], [address] [place] [phone] Social History Tobacco Use Types Packs/Day Years [...] any time in the past 12 m [facility], were you homeless or living in a half-way (including now)? No 06/15/2025 [facility] Utilities Answer Date Recorded In [...] with Phillip Clark MD on 06/14/2025 at [facility] under general anesthesia. aortic enlargement, measured [...] fibrillation, CHF, dysrhythmias, hyperlipidemia, pacemaker or past [place]. hypertension: Exercise tolerance is 1 flight of [...] 2 tablets by mouth every morning. Under [place] law, monthly prescriptions (30days) can be refilled [...] card, photo ID, along with power of ballpoint pen assembly machine operator, guardianship or advanced directives if applicable Do [...] Office Visit [place] [facility] [address], [address] [place] [address] Phillip Clark MD [address] [place] [address] documented as of this encounter Visit Diagnoses Not on filedocumented in this encounter Additional Health Concerns Assessment Noted Time A fall risk assessment has been complete d for the patient 05/05/2025 9:58 AM EDT A Body Mass Index follow-up plan has been documented for the patient 05/05/2025 10:51 AM EDT documented as of this encounter Care Teams Pumper Helper Relationship Specialty Start Date End Date Kamran Singh MD [address] [place] [address] PCP - General 02/28/25 documented as of this encounter
--- OUTSIDE RECORDS SUMMARY | 2025-06-09 12:20 | XMS_ITS | Encounter Summary ---
Author Organization [facility] Address [address] [id number] Care Team Providers Care Hospice Office Coordinator Name Role Phone Kamran Singh MD Primary Care Provider +1- [phone] Encounter Details Date Type Department Care Team (Latest Contact Info) Description 06/09/2025 12:20 PM EDT Office Visit [facility] Cardi[facility] [address], [address] [place] [address] Phillip Clark MD [address] [place] [address] Severe aortic regurgitation (Primary Dx) [...] encounter Miscellaneous Notes * Progress Notes - Lorleei Dominique, NOTEMAN - 06/09/2025 12:20 PM EDT Reason for [...] 2 tablets by mouth every morning. Under [email or web address] law, monthly prescriptions (30 days) can be refilled at 25 days and three-month prescriptions (90 days) at 80 days. Please contact the insurance company with questions if refills are denied. Patient taking differently: Take 2 tablets by mouth every 4 hours as needed. Under [email or web address] law, monthly prescriptions (30 days) can be [...] Description 07/07/2025 2:40 PM EST Office Visit [facility] Cardiothoracic [address], [address] [place] [address] Phillip Clark MD [address] [place] [phone] documented as of this encounter Results * [...] LAB HEMATOLOGY METHOD 06/09/2025 3:49 PM EDT [facility] RBC Count 5.62 4.60 - 6.10 10*6/uL LAB HEMATOLOGY METHOD 06/09/2025 3:49 PM EDT [facility] HGB 15.6 13.7 - 17.5 g/dL LAB HEMATOLOGY METHOD 06/09/2025 3:49 PM EDT [facility] HCT 49.2 40.0 - 51.0 % LAB HEMATOLOGY METHOD 06/09/2025 3:49 PM EDT [facility] Platelet Count 205 155 - 369 10*3/uL LAB HEMATOLOGY METHOD 06/09/2025 3:49 PM EDT [facility] MCV 88 79 - 98 fL LAB HEMATOLOGY METHOD 06/09/2025 3:49 PM EDT [facility] MCH 27.8 26.0 - 32.0 pg LAB HEMATOLOGY METHOD 06/09/2025 3:49 PM EDT [facility] MCHC 31.7 30.7 - 35.5 g/dL LAB HEMATOLOGY METHOD 06/09/2025 3:49 PM EDT [facility] RDW 15.3(H) 11.5 - 14.5 % LAB HEMATOLOGY METHOD 06/09/2025 3:49 PM EDT [facility] MPV 10.6 8.8 - 12.5 fL LAB HEMATOLOGY METHOD 06/09/2025 3:49 PM EDT [facility] nRBC 0.0 <=0.0 per 100 WBCs LAB HEMATOLOGY METHOD 06/09/2025 3:49 PM EDT [facility] Blood Venous blood specimen / Unknown Venipuncture / Unknown 06/09/2025 1:39 PM EDT 06/09/2025 1:40 PM EDT us Phillip lCark MD LAB BLOOD ORDERABLES Final R esult [facility] [address] [place] [address] * Comprehensive Metabolic Panel, Plasma (06/09/2025 1:39 PM EDT) [facility] Glucose, Plasma 86 74 - 99 mg/dL 06/09/2025 3:57 PM EDT [facility] BUN, Plasma 15 8 - 23 mg/dL 06/09/2025 3:57 PM EDT [facility] Creatinine, Plasma 0.85 0.70 - 1.20 mg/dL 06/09/2025 3:57 PM EDT [facility] BUN/Creatinine Ratio 18 06/09/2025 3:57 PM EDT [facility] Sodium, Plasma 139 136 - 145 mmol/L 06/09/2025 3:57 PM EDT [facility] Potassium, Plasma 4.7 3.6 - 4.9 mmol/L 06/09/2025 3:57 PM EDT [facility] Chloride, Plasma 107 97 - 107 mmol/L 06/09/2025 3:57 PM EDT [facility] CO2, Plasma 24 22 - 29 mmol/L 06/09/2025 3:57 PM EDT [facility] Anion Gap 8 6 - 16 mmol/L 06/09/2025 3:57 PM EDT [facility] Total Calcium, Plasma 9.0 8.9 - 10.2 mg/dL 06/09/2025 3:57 PM EDT [facility] Total Protein 6.6 6.3 - 7.9 g/dL 06/09/2025 3:57 PM EDT [facility] Albumin, Plasma 4.2 3.5 - 5.2 g/dL 06/09/2025 3:57 PM EDT [facility] AST, Plasma 23 10 - 50 U/L 06/09/2025 3:57 PM EDT [facility] ALT, Plasma 23 10 - 50 U/L 06/09/2025 3:57 PM EDT [facility] Alkaline Phosphatase, Plasma 66 40 - 115 U/L 06/09/2025 3:57 PM EDT [facility] Total Bilirubin, Plasma 0.8 0.2 - 1.1 mg/dL 06/09/2025 3:57 PM EDT [facility] eGFRcr 94.1 mL/min/1.7 3m*2 06/09/2025 3:57 PM EDT [facility] Comment:Reported eGFRcr in m L/min/1.73m2 is based the CKD-EPI 2020 equation that does not use a race coefficient. Blood Venous blood specimen / Unknown Venipuncture / Unknown 06/09/2025 1:39 PM EDT 06/09/2025 1:40 PM EDT us Phillip Clark MD LAB BLOOD ORDERABLES Final R esult [facility] [address] [place] [address] * (ABNORMAL) Hemoglobin A1c (06/09/2025 1:39 PM EDT) Hemoglobin A1c 5.7(H) <5.7 % 06/09/2025 6:09 PM EDT [facility] Blood Venous blood specimen / Unknown Venipuncture / Unknown 06/09/2025 1:39 PM EDT 06/09/2025 1:40 PM EDT Narrative [facility] - 06/09/2025 6:09 PM EDT HA1C Interpretive Data: Diagnosis of Diabetes: Diabetic > or = 6.5% Pre-diabetic 5.7 to 6.4% Non-diabetic < or = 5.6% Glycemic Targets for Type I and Type II Diabetics: Non- Adults <7.0% Adults <6.0% Children and Adolescents <7.5% Source: [place] [employer]. Standards of medical care in diabetes,2017. Diabetes Care.2017:40 (suppl 1):S1-S135. Phillip Clark MD LAB BLOOD ORDERABLES Final R esult [facility] [address] [place] [address] * Protime-INR (06/09/2025 1:39 PM EDT) Prothrombin Time 13.6 12.0 - 14.3 sec LAB COAGULATION METHOD 06/09/2025 3:58 PM EDT [facility] INR 1.0 0.9 - 1.1 LAB COAGULATION METHOD 06/09/2025 3:58 PM EDT [facility] Blood Venous blood specimen / Unknown Venipuncture / Unknown 06/09/2025 1:39 PM EDT 06/09/2025 1:40 PM EDT Narrative [facility] - 06/09/2025 3:58 PM EDT OPTIMAL INR RANGES FOR PATIENT ON ORAL ANTICOAGULANT THERAPY Prevention of venous thromboembolism INR 2.0 to 3.0 In patients with heart disease: Atrial fibrillation INR 2.0 to 3.0 Valvular heart disease INR 2.0 to 3.0 Tissue heart valves INR 2.0 to 3.0 Mechanical prosthetic valves INR 2.5 to 3.5 Prevention of recurrent [place] INR 2.5 to 3.5 Phillip Clark MD LAB BLOOD ORDERABLES Final R esult Performing Organization Address City/[facility] [address]/ZIP Co de Phone Number [facility] [address] [place] [address] * APTT (06/09/2025 1:39 PM EDT) aPTT 33 25 - 35 sec LAB COAGULATION METHOD 06/09/2025 3:58 PM EDT [facility] Blood Venous blood specimen / Unknown Venipuncture / Unknown 06/09/2025 1:39 PM EDT 06/09/2025 1:40 PM EDT Phillip Clark MD LAB BLOOD ORDERABLES Final R esult Performing Organization Address [facility] [address]/[facility] [place] [address] * Type & Screen, 30 Days (06/09/2025 [...] ORDERABL ES Final Result BLOOD BANK [address] [place] [address], documented in this encounter Visit Diagnoses Diagnosis Severe aortic regurgitation- Primary Severe aortic regurgitation documented in this encounter Additional Health Concerns Assessment Noted Time A fall risk assessment has been complete d for the patient 06/09/2025 12:15 PM EDT A Body Mass Index follow-up plan has been documented for the patient 06/09/2025 2:00 PM EDT documented as of this encounter Care Teams Hospice Office Coordinator Relationship Specialty Start Date End Date Kamran Singh MD [address] [place] [address] PCP - General 02/28/25 documented as of this encounter
--- OUTSIDE RECORDS SUMMARY | 2025-06-09 13:42 | XMS_ITS | Encounter Summary ---
Author Organization [facility] Address [address] [place] [address] Care Team Providers Care Data Operations Leader Name Role Phone Kamran Singh MD Primary Care Provider [phone]- [phone] Encounter Details Date Type Department Care Team (Latest Contact Info) Description 06/09/2025 1:42 PM EDT - 06/09/2025 11:59 PM EDT Hospital Encounter [place] [facility] [address], 1[address] [place] [address] Severe aortic regurgitation Discharge Disposition: Home or [...] any time in the past 12 m [facility], were you homeless or living in a [facility] (including now)? No 06/15/2025 [facility] Utilities Answer Date Recorded In [...] loose stool 20 capsule 06/20/2025 06/30/20 25 empagliflozin (Jardiance) 10 MG Take 1 [...] a day. 60 tablet 2 06/20/2025 09/18/19 naloxone (Narcan) 4 mg/0.1 mL nasal spray [...] daily. 30 tablet 2 06/20/2025 09/18/19 26 senna (Senokot) 8.6 MG tablet Take 2 tablets by mouth nightly for 10 days. Hold for loose stools 20 tablet 06/20/2025 06/30/20 25 spironolactone (Aldactone) 25 MG tablet Take 1 tablet by mouth daily. holding 06/20/2025 warfarin (Coumadin) 2 MG tablet Take 2 tablets by mouth daily. 4mg daily until you get your INR drawn on Jun 22, then as directed. 60 tablet 11 06/20/2025 potassium chloride CR (Klor-Con M20) 20 MEQ ER tablet Take 1 tablet by mouth daily for 3 days. Do not crush or chew. Take for 3 days only; to be taken with Lasix (furosemide) 40mg once daily for 3 days only. 3 tablet 06/20/2025 06/23/20 acetaminophen (Tylenol) 325 MG tablet Take 2 [...] Description 07/07/2025 2:40 PM EST Office Visit [place] [facility] [address], [address] [place] [address] Phillip Clakr MD [address] [place] [address] documented as of this [...] documented as of this encounter Care Teams Data Operations Leader Relationship Specialty Start Date End Date Kamran Singh MD [address] [place] [address] PCP - General 02/28/25 documented as of this encounter
--- OUTSIDE RECORDS SUMMARY | 2025-06-14 05:18 | XMS_ITS | Encounter Summary ---
Author Organization [facility] Address [address] [id number] Care Team Providers Care Supervisor [facility] Name Role Phone Kamran Singh MD Primary Care Provider [phone] Reason for Referral * Consultation (Routine) - Authorized Specialty Diagnoses / Procedures Referred By Nathalia garcia Referred To Contact Cardiac Rehabilitation Diagnoses S/P AVR Phillip Clark MD [address] [address] Phone: tel: fax: Referral ID Status Reason Start Date Expiration Date V isits Requested Visits Authorized [id number] Authorized 06/20/2025 12/20/2026 1 1 Reason for Visit * Auth/Cert (Routine) Specialty Diagnoses / Procedures Referred By Nathalia garcia Referred To Contact Diagnoses Severe aortic regurgitation Severe aortic regurgitation [I35.1] Procedures KS -AORT GRF W/CARD BYP F/AORTIC DISSECTION AORTIC ROOT RECONSTRUCTION Phillip Clark MD [address] [address] Phone: tel: fax: [facility] OPERATING ROOM [address] [place] [address] Phone: tel: Referral ID Status Reason Start Date Expiration Date Visits Re quested Visits Authorized [id number] 1 1 Encounter Details Date Type Department Care Team (Latest Contact Info) Description 06/14/2025 5:18 AM EDT - 06/20/2025 2:25 PM EDT Hospital Encounter [facility]patient [address] [place] [address] Phillip Clark MD [address] [place] [address] Other secondary hypertension (Primary Dx); [...] were you homeless or living in a penitentiary (including now)? No 06/15/2025 [facility] Utilities Answer Date Recorded In the [...] tablet by mouth daily. 30 tablet 06/20/2025 docusate sodium (Colace) 100 MG capsule Take 1 capsule by mouth 2 times a day for 10 days. Hold for loose stool 20 capsule 06/20/2025 empagliflozin (Jardiance) 10 MG Take 1 [...] mouth daily. 30 tablet 2 06/20/2025 6 senna (Senokot) 8.6 MG tablet Take 2 tablets by mouth nightly for 10 days. Hold for loose stools 20 tablet 06/20/2025 spironolactone (Aldactone) 25 MG tablet Take 1 [...] for 3 days only. 3 tablet 06/20/2025 documented as of this encounter [...] a referral and prefers to attend at [facility]. [place] will contact Mr. Forrest to discuss and [...] 2. Eligibility: Heart valve surgery 3. Exceptions/exclusions: [facility] Cardiac Rehab Exclusions: None 4. Referral: [facility] Cardiac Rehab Referral: Patient agreed with referral to the cardiac rehabilitation program at [facility] in [place], [place], phone number [phone]. 5. Information sent: Information Sent: Appropriate information will be sent to the receiving cardiac rehabilitation program.: * Progress Notes - Oumou Berger - 06/20/2025 10:15 AM EDT Case Management Discharge Note Bradley Forrest 69 y.o. male CSN: [id number] Admission: 06/14/2025 5:18 AM Primary Problem: Aortic valve regurgitation Primary Society Reporter: Primary Caregiver: Self Assistance Available at Discharge: Current Outpatient/Agency/Support Group: DME Availability of Care Givers (#Hours): Other (comment) (As needed) Family/Society Reporter(s) Willingness Assessed to care for patient at home: Yes Family/Society Reporter(s) Readiness Assessed to care for patient at [...] Recieved By: patient Follow-up: Jolynn Pollard APRN [facility] Cardiology [address] [place] [address] [address], [place] [address] Go on 08/22/2025 Your cardiology appointment is on August 22 at 11am Please arrive 15 minutes early and bring UPDATED medication list. [address] [facility] [id number] Go on 06/22/2025 Your first appointment for your Warfarin/Coumadin management is this FridayJune 22 at 11:30am. Please report to [facility] front admission desk and tell them you are checking in to the Pharmacy Anticoagulation Clinic. The cash application clerk will call the pharmacist who will meet you in the lobby and escort you to the clinic. Please bring all medications you are taking and your insurance card. If you have any issues please call [phone] ext: [phone] and then choose option 2. Discharge Transportation: Transportation Anticipated: family or friend will provide Transportation Home at Discharge: Family/Friend will Provide Follow Up Transport: Transportation Needed to Follow up Appoinments: Family/Friend will Provide Additional Comments: SW spoke with primary team this date who indicate the pt is medically stable for DC this date and does not require further [facility]-based care. Pt to DC home with , to transport. Covering RNCM ordered rollator from [facility] to be delivered to bedside. No further SW concerns identified at this time. SW will continue to remain available and will follow up with DC planning and needs as appropriate. DIMPLE Osullivan * Progress Notes - Libia Stevenson PharmD [...] Plan Anticoagulation Plan Warfarin Pharmacist Managed?: No [facility] Warfarin Dosing Protocol Followed?: No Reason for Protocol Departure: CT Surgery Bridging Agent in Conjunction With Warfarin? : No INR Monitoring Frequency: Monitor INR daily Patient Education : Complete and documented Warfarin dosing and adjustment per CT surgery provider. Transitions of Care Outpatient provider managing warfarin after [facility] discharge: TBD - possibly [facility] Recommended date for outpatient INR assessment: TBD - of note, enoxparin copay $0 for 7 day supply Will continue to follow patient's clinical progress daily. Libia Stevenson PharmD, BCCP Clinical Pharmacist - Cardiothoracic Surgery Available via Copybar * Progress Notes - Phillip Clark MD [...] Care Review Outcome: Ongoing, Progressing Flowsheets Taken 06/19/20251704 by [...] for Activity Flowsheets (Taken 06/19/20251704 by Vicente Hussein, HESHAM) Environmental Support: calm environment promoted Self-Care Promotion: independence encouraged Goal: Optimal Coping with Heart Surgery Outcome: Ongoing, Progressing Intervention: Support Psychosocial Response to Surgery Flowsheets (Taken 06/19/20251704 by iVcente Hussein RN) Supportive Measures: active listening utilized Family/Support System Care: caregiver stress acknowledged Goal: Absence of Bleeding Outcome: Ongoing, Progressing Intervention: Monitor and Manage Bleeding Flowsheets (Taken 06/19/20251704 by Vicente Hussein RN) Bleeding Management: dressing monitored Goal: Effective Bowel Elimination Outcome: Ongoing, Progressing Intervention: Enhance Bowel Motility and Elimination Flowsheets (Taken 06/19/20251704 by Vicente Hussein RN) Bowel Elimination Management: relaxation techniques promoted [...] Glycemic Control Flowsheets (Taken 06/19/20251704 by Vicente Hussein RN) Glycemic Management: blood glucose monitored Goal: Absence [...] and Vomiting Flowsheets (Taken 06/19/20251704 by Vicente Hussein RN) Nausea/Vomiting Interventions: slow deep breathing encouraged Goal: Effective Urinary Elimination Outcome: Ongoing, Progressing Intervention: Monitor and Manage Urinary Retention Flowsheets (Taken 06/19/20251704 by Vicente Hussein RN) Urinary Elimination Promotion: toileting offered Goal: Effective Oxygenation and Ventilation Outcome: Ongoing, Progressing Intervention: Promote Airway Secretion Clearance Flowsheets Taken 06/19/20251704 by Vicente Hussein RN Airway/Ventilation Management: calming measures promoted Cough And Deep Breathing: done independently per patient Taken 06/19/2025 1200 by Vicente Hussein RN Administration (IS): proper technique demonstrated Incentive Spirometer Predicted Level (mL): 1000 Number of Repetitions (IS): 10 Taken 06/19/2025344 by Lori Molina RN Patient Tolerance (IS): good Taken 06/17/2025 2000 by Lori Molina RN Level Incentive Spirometer (mL): 1000 Intervention: Optimize Oxygenation and Ventilation Flowsheets (Taken 06/19/20251704 by Hussein, Vicente C, RN) Chest Tube Safety: suction checked Problem: Fall Injury Risk Goal: Absence of Fall and Fall-Related Injury Outcome: Ongoing, Progressing Intervention: Identify and Manage Contributors Flowsheets (Taken 06/19/20251704 by Vicente Hussein, RN) Medication Review/Management: medications reviewed Self-Care Promotion: independence encouraged Intervention: Promote Injury-Free Environment Flowsheets (Taken 06/19/20251999) Safety Promotion/Fall Prevention: activity supervised clutter-free environment maintained Problem: Pain Acute Goal: Optimal Pain Control and Function Outcome: Ongoing, Progressing Intervention: Optimize Psychosocial Wellbeing Flowsheets Taken 06/19/20251704 by Vicenet Hussein RN Supportive Measures: active listening utilized Spiritual Activities Assistance: affirmation provided Taken 06/19/2025344 by Lori Molina RN Diversional Activities: television Intervention: Develop Pain Management Plan Flowsheets (Taken 06/19/20251704 by Vicente Hussein, RN) Pain Management Interventions: medication (see MAR) [...] Ongoing, Progressing Intervention: Promote Activity and Functional [place] Flowsheets (Taken 06/19/20251704 by Vicente Hussein, RN) Activity Assistance Provided: assistance, stand-by Adaptive Equipment Use: use encouraged Self-Care Promotion: independence encouraged Problem: Self-Care Deficit Goal: Improved Ability to Complete Activities of Daily Living Outcome: Ongoing, Progressing Intervention: Promote Activity and Functional [place] Flowsheets (Taken 06/19/20251704 by Vicente Hussein RN) [...] Functional Ability Flowsheets Taken 06/19/20251704 by Vicente Hussein, RN Activity Management: activity encouraged Activity Assistance [...] Deep Breathing: done independently per patient Taken 06/19/2025 1200 by Vicente Hussein RN Administration (IS): proper technique demonstrated Incentive Spirometer Predicted Level (mL): 1000 Number of Repetitions (IS): 10 Taken 06/19/2025344 by Lori Molina, RN Patient Tolerance (IS): good Taken 06/17/20251999 [...] Ongoing, Progressing Intervention: Promote Activity and Functional [place] Flowsheets (Taken 06/19/20251704) Activity Assistance Provided: assistance, [...] of Bed (HOB) Positioning: HOB elevated Taken 06/19/2025344 by Lori Molina RN Pressure [...] Ongoing, Progressing Intervention: Promote Activity and Functional [place] Flowsheets (Taken 06/19/20251704) Activity Assistance Provided: assistance, [...] Plan Anticoagulation Plan Warfarin Pharmacist Managed?: No [facility] Warfarin Dosing Protocol Followed?: No Reason for Protocol Departure: CT Surgery Bridging Agent in Conjunction With Warfarin? : No Goal PTT/anti-Xa: 2.5-3.5 INR Monitoring Frequency: Monitor INR daily Patient Education : Complete and documented Warfarin dosing and adjustment per CT surgery provider. Transitions of Care Outpatient provider managing warfarin after [facility] discharge: TBD - possibly clinic Recommended date for outpatient INR assessment: TBD - of note, enoxparin copay $0 for 7 day supply Will continue to follow patient's clinical progress daily. Prashant Aguilar, Alicia PGY2 Critical Care Resident Available on secure [...] 06/15 IV Lasix 40mg x 2 - 10/16 PO Lasix 40mg x 1 - 06/18: [...] rhythm - continue warfarin CT surgery pager [phone] [1] acetaminophen, 650 mg, Oral, q4h DEMETRIUS [...] Review Outcome: Ongoing, Progressing Flowsheets Taken 06/19/2025 0345 Progress: improving Plan of Care Reviewed With: patient family Taken 06/18/2025 0052 Outcome Evaluation: Plan of care discussed with [...] Prevent or Manage Infection Flowsheets Taken 06/19/2025 034 Infection Management: aseptic technique maintained Fever Reduction/Comfort [...] RN Number of Repetitions (IS): 10 Taken 06/17/20251999 by Lori Molina RN Level [...] Ongoing, Progressing Intervention: Promote Activity and Functional [place] Flowsheets (Taken 06/19/2025344) Activity Assistance Provided: assistance, stand-by Self-Care Promotion: independence encouraged Problem: Self-Care Deficit Goal: Improved Ability to Complete Activities of Daily Living Outcome: Ongoing, Progressing Intervention: Promote Activity and Functional [place] Flowsheets (Taken 06/19/2025344) Activity Assistance Provided: assistance, [...] Progressing Intervention: Promote Wound Healing Flowsheets (Taken 06/19/2025 3593) Sleep/Rest Enhancement: awakenings minimized consistent schedule promoted regular sleep/rest pattern promoted room darkened * Jelanimassimo Samantha - Brittaney Dumas RN - 06/18/2025 6:29 PM EDT Images from the original note were not included. [id number] Tratamiento para contracciones ventriculares prematuras (CVP) Las [...] Confusi??n. Last Reviewed Date: 2024 00:00:00 ?? 3039-7416 [employer]. All rights reserved. This information is not intended as a substitute for professional medical care. Always follow your healthcare professional's instructions. * Gabriel GonsalezTRISTAN - Brittaney Dumas RN - 06/18/2025 6:29 PM EDT Images from the original note were not included. [id number] C??mo comprender las contracciones ventriculares prematuras (CVP) [...] se??al activa partes cercanas del coraz??n contraer. [place] permite que el coraz??n se comprima de [...] card??acos anteriores, el coraz??n expulsar?? muypoca mushtaq. [place] provoca aria sensaci??n de pausa entre latidos. El siguiente latido card??aco suele ser m??s bea, ya que la pausa lo permite que el coraz??n descanse y se llene de mushtaq. [place] lleva a aria sensaci??n de latido card??aco [...] port??til jameson unos d??as o incluso semanas. [facility] [place] puede ayudar a diagnosticar los CVP que [...] im??genes del coraz??n. ? An??lisis de mushtaq. [facility] [place] se hace para comprobar los electrolitos y concentraciones tiroideas. Last Reviewed Date: 2024 00:00:00 ?? [id number] [employer]. All rights reserved. This information is not intended as a substitute for professional medical care. Always follow your healthcare professional's instructions. * Gabriel Singh - Brittaney Dumas RN - 06/18/2025 6:29 PM EDT Images from the original note were not included. [id number] Tratamiento para contracciones ventriculares prematuras (CVP) Las [...] Confusi??n. Last Reviewed Date: 2024 00:00:00 ?? [id number] [employer]. All rights reserved. This information is not intended as a substitute for professional medical care. Always follow your healthcare professional's instructions. * Gabriel Singh - Brittaney Dumas RN - 06/18/2025 6:29 PM EDT Images from the original note were not included. [id number] C??mo comprender las contracciones ventriculares prematuras (CVP) [...] se??al activa partes cercanas del coraz??n contraer. [place] permite que el coraz??n se comprima de [...] card??acos anteriores, el coraz??n expulsar?? muypoca mushtaq. [place] provoca aria sensaci??n de pausa entre latidos. El siguiente latido card??aco suele ser m??s bea, ya que la pausa lo permite que el coraz??n descanse y se llene de mushtaq. [place] lleva a aria sensaci??n de latido card??aco [...] port??til jameson unos d??as o incluso semanas. [place] puede ayudar a diagnosticar los CVP que [...] im??genes del coraz??n. ? An??lisis de mushtaq. [place] se hace para comprobar los electrolitos y concentraciones tiroideas. Last Reviewed Date: 2024 00:00:00 ?? [id number] [employer]. All rights reserved. This information is not intended as a substitute for professional medical care. Always follow your healthcare professional's instructions. * Gabriel Singh - Brittaney Dumas RN - 06/18/2025 6:28 PM EDT Images from the original note were not included. 09719 Treatment for Premature Ventricular Contractions (PVCs) Premature [...] confusion Last Reviewed Date: 2024 00:00:00 ?? [id number] [employer]. All rights reserved. This information is not intended as a substitute for professional medical care. Always follow your healthcare professional's instructions. * Gabriel Singh - Brittaney Dumas RN - 06/18/2025 6:28 PM EDT Images from the original note were not included. 50920 Understanding Premature Ventricular Contractions (PVCs) Premature ventricular [...] 2 weeks. ? Insertable (or implantable) cardiac rehab nurse. This small device is implanted under the [...] levels. Last Reviewed Date: 2024 00:00:00 ?? [id number] [employer]. All rights reserved. This information is not intended as a substitute for professional medical care. Always follow your healthcare professional's instructions. * Progress Notes - Prashant Aguilar, PharmD - 06/18/2025 10:47 AM EDT Antithrombosis [...] Plan Anticoagulation Plan Warfarin Pharmacist Managed?: No [facility] Warfarin Dosing Protocol Followed?: No Bridging Agent in Conjunction With Warfarin? : Yes Ordered Agents: Enoxaparin Bridging Agent Dose: 70mg BID INR Monitoring Frequency: Monitor INR daily Patient Education : Complete and documented Warfarin dosing and adjustment per CT surgery provider. Transitions of Care Outpatient provider managing warfarin after [facility] discharge: TBD - possibly [facility] Recommended date for outpatient INR assessment: [...] Review Outcome: Ongoing, Progressing Flowsheets (Taken 06/18/2025 0059 by Lori Molina, RN) Progress: improving Outcome [...] Intervention: Prevent Skin Injury Flowsheets Taken 06/18/2025 Body Position: weight shifting Taken 06/17/2025108 Skin Protection: incontinence pads utilized [...] Perfusion Promotion: blood pressure monitored Taken 06/18/2025 Head of Bed (HOB) Positioning: HOB elevated [...] Measures: airway opened legs elevated Taken 06/18/2025 0000 Administration (IS): self-administered Taken 06/17/20251999 Patient Tolerance [...] Promote Airway Secretion Clearance Flowsheets Taken 06/18/2025 0000 Administration (IS): self-administered Cough And Deep Breathing: [...] Ongoing, Progressing Intervention: Promote Activity and Functional [place] Flowsheets (Taken 06/18/202558) Activity Assistance Provided: assistance, 1 person Self-Care Promotion: independence encouraged Problem: Self-Care Deficit Goal: Improved Ability to Complete Activities of Daily Living Outcome: Ongoing, Progressing Intervention: Promote Activity and Functional [place] Flowsheets (Taken 06/18/202558) Activity Assistance Provided: assistance, [...] Intervention: Prevent or Manage Pain Flowsheets Taken 06/18/2025 0059 Pain Management Interventions: medication (see MAR) pillow support provided position adjusted relaxation techniques promoted Taken 06/17/2025108 Sleep/Rest Enhancement: awakenings minimized room darkened Goal: Skin Health and Integrity Outcome: Ongoing, Progressing Intervention: Optimize Skin Protection Flowsheets Taken 06/18/2025 0000 Activity Management: activity encouraged dorsiflexion/plantar flexion performed Head of Bed (HOB) Positioning: HOB elevated Taken 06/17/2025 010 Pressure Reduction Techniques: frequent weight shift encouraged heels elevated off bed Pressure Reduction Devices: chair cushion utilized heel offloading device utilized Skin Protection: tubing/devices free from skin contact Goal: Optimal Wound Healing Outcome: Ongoing, Progressing Intervention: Promote Wound Healing Flowsheets (Taken 06/17/2025108) Sleep/Rest Enhancement: awakenings minimized room darkened * [...] from the original note were not included. [id number] Warfarin IMPORTANT WARNING: Warfarin may cause severe [...] doctor or pharmacist will give you the social science analyst's patient information sheet (Medication Guide) when you begin treatment with warfarin and each time you refill your prescription. Read the information carefully and ask your doctor or pharmacist if you have any questions. You can also visit the Food and Drug Administration (FDA) website (https://www.fda.gov/downloads/Drugs/DrugSafety/drt243503.pdf) or the social science analyst's website to obtain the Medication Guide. Talk [...] amounts of vitamin K-containing food on a semm-lv-lpik basis. Do not eat large amounts of [...] be awakened, immediately call emergency services at 491. Symptoms of overdose may include the following: [...] of all of the prescription and nonprescription (clct-rok-ncejnrz) medicines, vitamins, minerals, and dietary supplements you [...] or pharmacist about specific clinical use. The [employer] represents that the information provided hereunder was formulated with a reasonable standard of care, and in conformity with professional standards in the field. The [employer] makes no representations or warranties, express or implied, including, but not limited to, any implied warranty of merchantability and/or fitness for a particular purpose, with respect to such information and specifically disclaims all such warranties. Users are advised that decisions regarding drug therapy are complex medical decisions requiring the independent, informed decision of an appropriate health coronary care unit nurse, and the information is provided for informational purposes only. The entire monograph for a drug should be reviewed for a thorough understanding of the drug's actions, uses and side effects. The [employer] does not endorse or recommend the use of any drug.The information is not a substitute for medical care. AHFS?? Patient Medication Information?. ?? Copyright, 2023. The [employer]??, [address], [address], [place], [place]. All Rights Reserved. Duplication for commercial use must be authorized by [facility]. Selected Revisions: February 13, 2017. AHFS?? Patient Medication Information?. ?? Copyright, 2024 * Gabriel GonsalezALONZO - Sydni Munson RN - 06/17/2025 12:42 PM EDT Images from the original note were not included. 15200 Recovery From Heart Surgery: The First Few [...] stop Last Reviewed Date: 2024 00:00:00 ?? [id number] [employer]. All rights reserved. This information is not [...] arms away from your body. * Gabriel GonsalezFHIR - Sydni Munson RN - 06/17/2025 12:42 PM EDT Images from the original note were not included. 57277 After Heart Valve Surgery For the first [...] headache Last Reviewed Date: 2023 00:00:00 ?? [id number] [employer]. All rights reserved. This information is not intended as a substitute for professional medical care. Always follow your healthcare professional's instructions. * Discharge Instr - Other Orders - Sydni Munson RN - 06/17/2025 12:39 PM EDT Please arrive 30 minutes early for your appointment with Dr. Clark Prior to your appointment, go to the radiology department on the 1st floor of the [facility] near [facility] for a chest x-ray. Then go [...] your incisions. Do NOT lift, push, or rib puller 5 pounds for six weeks. Do [...] Sydni Munson CT Surgery Nurse Navigator at [phone] Friday through Friday 7am- 3:30pm [facility] [phone] after 3:30 pm, weekends and holidays - ask for the CT surgeon air conditioning unit tester. * Progress Notes - Brooke Valdez PTA - 06/17/2025 11:58 AM EDT Physical Therapy Treatment Patient Name: Bradley Forrest Today's Date: 06/17/2025 Total Treatment Time: 39 min PT Discharge Recommendations: Home with assistance Equipment Recommended: Rollator Subjective The patient states, I am doing okay. Participants in Care Family/Caregiver Present: Yes Family/Caregiver: Spouse, Other (Specify) (sister and brother) [employer] [place]: Not Applicable Presentation Oxygen: None (Room air) [...] sequencing. Bed Mobility Exam: Rolling/Turning Level of [place]: Minimum assist (75% patient effort) Physical/Nonphysical Assist: Verbal Cues, Set-up required Bed Mobility Exam: Scooting/Bridging Level of [place]: Minimum assist (75% patient's effort) (to scoot to edge of bed with cues to adhere to sternal precautions) Physical/Nonphysical Assist: Verbal Cues, Set-up required Bed Mobility Exam: Supine to Sit Level of [place]: Minimum assist (75% patient's effort) Physical/Nonphysical Assist: Verbal Cues, Set-up required, Additional assist utilized for safety Bed Mobility Exam: Sit to Supine Level of [place]: Minimum assist (75% patient's effort) Physical/Nonphysical Assist: Verbal Cues, Set-up required, Additional assist utilized for safety Transfers Transfer Intervention: Verbal cues provided for correct bilateral hand and foot placement during sit to stand transfers. Transfer Interventions: The patient stood at the sink for hygiene approximately 8-10 minutes with CGA of 1 person. 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 Level of [place] Adaptive Equipment Utilized Comments Feeding Grooming SBA Standing sinkside stood times 8 minutes in bathroom. Bathing Upper Body Dressing Lower Body Dressing Sock Level of Assistance: Moderate assistance, Minimal verbal cues Toileting SBA Toilet IADLs Health Management Community Re-Entry BALANCE Postural Appearance INTERVENTIONS Level of [place] Balance Support Comments Static Sit Standby assist [...] weight shifting to promote safety. Level of [place] Physical/Non-physical Assist Adaptive Equipment Utilized Rolling/ Turning [...] PM. * Progress Notes - Maria Esther Kent, PharmD - 06/17/2025 10:20 AM EDT Antithrombosis [...] Plan Anticoagulation Plan Warfarin Pharmacist Managed?: No [facility] Warfarin Dosing Protocol Followed?: No Bridging Agent in Conjunction With Warfarin? : Yes Ordered Agents: Enoxaparin Bridging Agent Dose: 70mg BID INR Monitoring Frequency: Monitor INR daily Patient Education : Complete and documented Warfarin dosing and adjustment per CT surgery provider. Transitions of Care Outpatient provider managing warfarin after [facility] discharge: TBD - possibly clinic Recommended date for outpatient INR assessment: TBD - of note, enoxparin copay $0 for 7 day supply Will continue to follow patient's clinical progress daily. Maria Esther Kent PharmD, ARLEEN, BCCCP, [facility] Critical Care Pharmacist - Cardiothoracic Surgery Contact via secure chat * Maria Esther Houston PharmD - 06/17/2025 9:21 AM EDT Images from the original note were not included. Your Health Checklist: Taking Warfarin Safely - Video Follow this checklist to properly and safely take warfarin. To view the video go to this web address: https://bit.[email or web address]/[email or web address] Or, scan this QR code with your [...] the video go to this web address: https://bit.[email or web address]/[email or web address] Or, scan this QR code with your smart phone ?? [facility] * Maria Esther Houston PharmD - 06/17/2025 9:21 AM EDT Images from the original note were not included. Warfarin: Your INR Goal - Video Understand what the INR test measures, and what your healthy INR level should be. To view the video go to this web address: [email or web address].[email or web address]/[email or web address] Or, scan this QR code with your [...] the video go to this web address: [email or web address] Or, scan this QR code with your [...] Certain other vegetables and fruits, including asparagus, [place] sprouts, and kiwifruit ? Certain soy products, such as natto (a traditional Frisian dish of fermented soybeans) Some vegetable oils [...] reduced-fat cheese, served with a whole grain Georgian muffin ? A grilled chicken sandwich on whole grain bread with raw spinach*, tomato slices, and mustard ? Oven-roasted fish served with steamed broccoli* and medley of whole grain pasta, carrots, onions,and mushrooms * Foods higher in vitamin K Last Reviewed Date: 2025 00:00:00 ?? 9011-0951 [employer]. All rights reserved. This information is not [...] the video go to this web address: https://bit.ly/4awUWKN Or, scan this QR code with your smart phone ?? [facility] * Maria sEther Houston PharmD - 06/17/2025 9:21 AM EDT [...] the video go to this web address: [email or web address].[email or web address]/[email or web address] Or, scan this QR code with your smart phone ?? [facility] * Maria Esther Houston PharmD - 06/17/2025 9:21 AM EDT Images from the original note were not included. [id number] Warfarin IMPORTANT WARNING: Warfarin may cause severe [...] doctor or pharmacist will give you the social science analyst's patient information sheet (Medication Guide) when you begin treatment with warfarin and each time you refill your prescription. Read the information carefully and ask your doctor or pharmacist if you have any questions. You can also visit the Food and Drug Administration (FDA) website (https://www.fda.gov/downloads/Drugs/DrugSafety/zsz376976.pdf) or the social science analyst's website to obtain the Medication Guide. Talk [...] amounts of vitamin K-containing food on a mxmi-rt-ztqt basis. Do not eat large amounts of [...] of all of the prescription and nonprescription (qyvz-vab-kqfxdjv) medicines, vitamins, minerals, and dietary supplements you [...] or pharmacist about specific clinical use. The [employer] represents that the information provided hereunder was formulated with a reasonable standard of care, and in conformity with professional standards in the field. The [employer] makes no representations or warranties, express or implied, including, but not limited to, any implied warranty of merchantability and/or fitness for a particular purpose, with respect to such information and specifically disclaims all such warranties. Users are advised that decisions regarding drug therapy are complex medical decisions requiring the independent, informed decision of an appropriate health coronary care unit nurse, and the information is provided for informational purposes only. The entire monograph for a drug should be reviewed for a thorough understanding of the drug's actions, uses and side effects. The [employer] does not endorse or recommend the use of any drug.The information is not a substitute for medical care. AHFS?? Patient Medication Information?. ?? Copyright, 2023. The [employer]??, [address], [address], [place], [place]. All Rights Reserved. Duplication for commercial use must be authorized by [facility]. Selected Revisions: February 13, 2017. AHFS?? Patient [...] Care Review Outcome: Ongoing, Progressing Flowsheets (Taken 06/17/2025108) Progress: improving Outcome Evaluation: Plan of care [...] Ongoing, Progressing Intervention: Promote Activity and Functional [place] Flowsheets (Taken 06/17/2025108) Activity Assistance Provided: assistance, 1 person Self-Care Promotion: independence encouraged Problem: Self-Care Deficit Goal: Improved Ability to Complete Activities of Daily Living Outcome: Ongoing, Progressing Intervention: Promote Activity and Functional [place] Flowsheets (Taken 06/17/2025108) Activity Assistance Provided: assistance, [...] Bed (HOB) Positioning: HOB elevated Taken 06/17/2025 0000 Activity Management: dorsiflexion/plantar flexion performed Goal: Optimal Wound Healing Outcome: Ongoing, Progressing Intervention: Promote Wound Healing Flowsheets (Taken 06/17/2025108) Sleep/Rest Enhancement: awakenings minimized room darkened * [...] Ongoing, Not Progressing Goal: Patient-Specific Goal (Individualized) 06/16/2025 152 by Fariba Blanton RN Outcome: [...] Not Progressing Goal: Optimal Comfort and Wellbeing 06/16/2025 152 by Fariba Blanton RN Outcome: Ongoing, Progressing 06/16/2025 1526 by Fariba Blanton RN Outcome: Ongoing, Not Progressing Problem: Infection Goal: Absence of Infection Signs and Symptoms 06/16/2025 152 by Fariba Blanton RN Outcome: Ongoing, Progressing 06/16/2025 1526 by Fariba Blanton RN Outcome: Ongoing, Not Progressing Problem: Cardiovascular Surgery Goal: Improved Activity Tolerance 06/16/2025 152 by Fariba Blanton RN Outcome: Ongoing, Progressing 06/16/2025 152 by Fariba Blanton RN Outcome: Ongoing, Not Progressing Goal: Optimal Coping with Heart Surgery 06/16/2025 152 by Fariba Blanton RN Outcome: Ongoing, Progressing 06/16/2025 1526 by Fariba Blanton RN Outcome: Ongoing, Not Progressing Goal: Absence of Bleeding 06/16/2025 152 by Fariba Blanton RN Outcome: Ongoing, Progressing 06/16/2025 152 by Fariba Blanton RN Outcome: Ongoing, Not Progressing Goal: Effective Bowel Elimination 06/16/2025 1526 by Fariba Blanton RN Outcome: Ongoing, Progressing 06/16/2025 1526 by Fariba Blanton RN Outcome: Ongoing, Not Progressing Goal: Effective Cardiac Function 06/16/2025 1526 by Fariba Blanton RN Outcome: Ongoing, Progressing 06/16/2025 1526 by Fariba Blanton RN Outcome: Ongoing, Not Progressing Goal: Optimal Cerebral Tissue Perfusion 06/16/2025 1526 by Fariba Blanton RN Outcome: [...] Absence of Infection Signs and Symptoms 06/16/2025 152 by Fariba Blanton RN Outcome: Ongoing, Progressing 06/16/2025 1526 by Fariba Blanton RN Outcome: Ongoing, Not Progressing Goal: Anesthesia/Sedation Recovery 06/16/2025 152 by Fariba Blanton RN Outcome: Ongoing, Progressing 06/16/2025 152 by Fariba Blanton RN Outcome: Ongoing, Not Progressing Goal: Acceptable Pain Control 06/16/2025 1526 by Fariba Blanton RN Outcome: Ongoing, Progressing 06/16/2025 1526 by Fariba Blanton RN Outcome: Ongoing, Not Progressing Goal: Nausea and Vomiting Relief 06/16/2025 152 by Fariba Blanton RN Outcome: Ongoing, Progressing 06/16/2025 152 by Fariba Blanton RN Outcome: Ongoing, Not Progressing Goal: Effective Urinary Elimination 06/16/2025 1526 by Fariba Blatnon, HESHAM Outcome: Ongoing, Progressing 06/16/2025 1526 by [...] Progressing Problem: Wound Goal: Optimal Coping 06/16/2025 152 by Fariba Blanton RN Outcome: Ongoing, Progressing 06/16/2025 1526 by Fariba Blanton RN Outcome: Ongoing, Not Progressing Goal: Optimal Functional Ability 06/16/2025 1526 by Fariba Blanton RN Outcome: Ongoing, Progressing 06/16/2025 1526 by Fariba Blanton RN Outcome: Ongoing, Not Progressing Goal: Absence of Infection Signs and Symptoms 06/16/2025 152 by Fariba Blanton RN Outcome: Ongoing, Progressing 06/16/2025 1526 by Fariba Blanton RN Outcome: Ongoing, Not Progressing Goal: Improved Oral Intake 06/16/2025 1526 by Fariba Blanton RN Outcome: Ongoing, Progressing 06/16/2025 1526 by Fariba Blanton, HESHAM Outcome: Ongoing, Not Progressing Goal: Optimal Pain Control and Function 06/16/2025 152 by Fariba Blanton RN Outcome: Ongoing, Progressing 06/16/2025 152 by Fariba Blanton RN Outcome: Ongoing, Not Progressing Goal: Skin Health and Integrity 06/16/2025 152 by Fariba Blanton, HESHAM Outcome: Ongoing, Progressing [...] Note Bradley Forrest 69 y.o. male CSN: [id number] Admission: 06/14/2025 5:18 AM Primary Problem: Severe [...] Weaning from mechanically assisted ventilation initiated (CMS/HCC) (Acgwtncn30/20/2025) Arrived intubated and sedated post-op - fast [...] post median sternotomy. Interval removal of the [place]-Ganzcatheter, right IJ sheath remains in place with tip in the mid to distal SVC. No pneumothorax or pleural effusions. Ongoing interstitial edema. - Impression - Interval removal of the [place]-Shira catheter, the right IJ sheath remains in place with tip in the mid to distal SVC. Otherwise, no significant changes CRITICAL RESULT: No. COMMUNICATION: Per this written report. 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 [employer] Hemmer (if applicable) OBJECTIVE & INTERVENTIONS PAIN Pain [...] ACTIVITY Treatment Minutes 24 TRANSFERS Level of [place] Physical/Non- physical Assist Adaptive Equipment Utilized Sit to Stand Contact guard Verbal Cues, Additional assist utilized for safety, 1 person + 1 person to manage equipment (verbal cuing for sternal precautions) Stand to sit Contact guard Verbal Cues, 1 person + 1 person to manage equipment Interventions BALANCE Postural Appearance Posture: Rounded shoulders Level of [place] Balance Support Interventions Static Sit Standby assist Feet supported Dynamic Sit Contact guard Feet supported Static Stand Standby assist Right upper extremity support, Left upper extremity support Pt with mild dizziness when coming to stand from sitting which subsided with roughly 30 seconds of static standing Dynamic Stand Standby assist Right upper extremity support, Left upper extremity support AMBULATION Level of [place] Distance Adaptive Equipment Utilized Ambulation Standby assist, [...] Plan Anticoagulation Plan Warfarin Pharmacist Managed?: No [facility] Warfarin Dosing Protocol Followed?: No Reason for Protocol Departure: CT Surgery Bridging Agent in Conjunction With Warfarin? : Yes Ordered Agents: Enoxaparin Bridging Agent Dose: Enoxaparin 70mg bid to start 1016 pm INR Monitoring Frequency: Monitor INR daily Patient Education : Incomplete Warfarin dosing and adjustment per CT surgery provider. Transitions of Care Outpatient provider managing warfarin after [facility] discharge: TBD Recommended date for outpatient INR assessment: TBD Will continue to follow patient's clinical progress daily. Sy Fernández PharmD PGY-2 Cardiology Fretted Instrument Repairer Available via Secure Chat * Progress Notes [...] Current Scheduled Medications[1] Current Continuous Medications[2] PAP: (23-28)/(9-18) 23/9 CO: [5.5 L/min-7.5 L/min] 5.5 L/min [...] Monitor Pain and Promote Comfort Flowsheets (Taken 06/15/20251947) Pain Management Interventions: medication [...] Develop Pain Management Plan Flowsheets (Taken 06/15/2025 194) Pain Management Interventions: [...] Ongoing, Progressing Intervention: Promote Activity and Functional [place] Flowsheets Taken 06/15/20250 by Bony Thomas RN Activity Assistance Provided: [...] Ongoing, Progressing Intervention: Promote Activity and Functional [place] Flowsheets Taken 06/15/20251699 by Bony Thomas RN Activity Assistance Provided: assistance, stand-by Taken 06/14/20252154 by Svetlana Reilly RN Self-Care Promotion: independence encouraged * Consults - Nat Singletary RD - 06/15/2025 2:23 PM EDTAssociated Order(s): IP CONSULT TO NUTRITION SERVICES Adult Nutrition Evaluation Note Bradley Forrest 69 y.o. 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) GI Symptoms: Nausea, Vomiting Edema: Generalized Allergies: [...] 30.07 Weight Evaluation: Obese-Class 1 (BMI 30-34.9) [place] Body Weight (kg): 67.3 Percent [place] Body Weight: 130 Adjusted Body Weight (kg): 72.4 Estimated Needs: Kcal/ K-28 Kcal Provided: Metabolic Cart Study Results: Current Nutrition Intake: Diet Order: Adult Diet Diet Texture: Clear liquid Adult Carbohydrate Restriction: Consistent CHO 2 (4865-1656 Venkat, 80 g/meal) Fat Restriction: Cardiac Percent Meals Eaten (%): establishing Diet Experience and Nutrition History: Diet Education Provided: Will monitor Pertinent home medications: Rastafarian needs: Nutrition Focused Physical Exam: Physical exam performed on (date): 06/15 Temples (muscles): None Clavicle (muscle): None Shoulder (muscle): None Orbital (fat): None Triceps (fat): None Energy Intake: reported adequate TEMPORARY DATA ENTRY CLERK Weight Loss: denies Assessment of Malnutrition: Malnutrition [...] >/= 75% meals Acuity Level: 3 Nat Singletary, JORDAN [1] acetaminophen, 650 mg, Oral, q4h DEMETRIUS [...] [2] clevidipine, 2 mg/hr, Last Rate: Stopped (10/15/25 1200) [3] PRN medications: albumin human, glucose OR dextrose 10 % OR dextrose 10 % OR glucagon (human recombinant), hydrALAZINE OR hydrALAZINE, HYDROmorphone OR HYDROmorphone, labetalol OR labetalol, ondansetron, oxyCODONE OR oxyCODONE, polyethylene glycol, sodium chloride, sodium chloride * Progress Notes - Sangeeta Townsend RN - 06/15/2025 1:37 PM EDT Case Management Adult Initial Progress Note Bradley Forrest 69 y.o. male CSN: [id number] Admission: 06/14/2025 5:18 AM Primary Problem: Severe aortic regurgitation Waiter/Waitress Dining Car reviewed chart and spoke with the patient at bedside to complete this Initial Case Management Assessment. PCP: Kamran Singh MD Emergency Contact: Extended Emergency Contact Information Primary Emergency Contact: Naheed Forrest Address: [address] [place] Relation: Spouse Insurance: Primary Visit Coverage Payer Plan Sponsor Code Group Number Group Name MARY HERNANDEZ [facility] [id number] Primary Visit Coverage Subscriber Subscriber ID Subscriber Name Subscriber [facility] Subscriber Address [id number] Forrest,Bradley [id number] [address] [facility] [id number] Secondary Visit Coverage Payer Plan Sponsor Code Group Number Group Name MEDICARE MEDICARE A & B Secondary Visit Coverage Subscriber Subscriber ID Subscriber Name Subscriber [facility] Subscriber Address [id number] Jeet Forrestime [id number] [place] [address] [place] JITENDRA [id number] Patient information: Primary Caregiver: Self Support System: Immediate family Daily Living Activities: Functional Status: Independent Living Arrangements: Spouse/Significant other Type of Residence: Private residence, Single Level [address] [place] [address] Current DME: Equipment Currently Used at Home: [...] DME Provider: n/a Living Will/Advance Directive/Power of Cartridge Assembler /Guardian: Unable to assess: No Have you [...] prior HH/O2/HD/Abx. PCP is Kamran Singh. Has [employer] insurance and uses [facility]. Family to transport and assist as [...] Plan Anticoagulation Plan Warfarin Pharmacist Managed?: No [facility] Warfarin Dosing Protocol Followed?: No Reason for Protocol Departure: CT Surgery Bridging Agent in Conjunction With Warfarin? : No INR Monitoring Frequency: Monitor INR daily Patient Education : Incomplete Warfarin dosing and adjustment per CT surgery provider. Transitions of Care Outpatient provider managing warfarin after [facility] discharge: TBD Recommended date for outpatient INR assessment: TBD Will continue to follow patient's clinical progress daily. Frank BrothersD PGY-2 Cardiology Fretted Instrument Repairer Available via Secure Chat * Assessment & [...] * Assessment & Plan Note - Belle mSith MD - 06/15/2025 10:46 AM EDT Associated Problem(s): Benign prostatic hyperplasia -Monitor per protocol. * Assessment & Plan Note - Belle Smith MD - 06/15/2025 10:46 AM EDT Associated Problem(s): Weaning from mechanically assisted ventilation initiated (CMS/HCC) (Shqqyxjd77/20/2025) Arrived intubated and sedated post-op - fast [...] Weaning from mechanically assisted ventilation initiated (CMS/HCC) (Edtfgmih36/20/2025) Arrived intubated and sedated post-op - fast [...] 06/15/2025 Weaning from mechanically assisted ventilation initiated ([facility]) 06/14/2025 Diabetes 05/05/2025 Benign prostatic hyperplasia 05/05/2025 CAD (coronary artery disease) 04/14/2025 History of coronary angioplasty with insertion of stent 04/14/2025 Ascending aortic aneurysm ([facility]) 04/14/2025 Aortic valve regurgitation 04/14/2025 BMI 30.0-30.9,adult [...] 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) Level of Mobility: Ambulatory- community Mobility [place]: Independent gait without device History of Falls: [...] Mobility Exam: Sit to Supine Level of [place]: Maximum assist (25% patient's effort) Physical/Nonphysical Assist: Verbal Cues, Maximal cues, Additional assist utilized for safety Transfers Transfer Exam: Sit to stand Level of [place]: Moderate assist (50% patient's effort) Physical/Nonphysical Assist: Verbal Cues, Moderate cues, Additional assist utilized for safety Assistive Device: Rollator Transfer Exam: Stand to Sit Level of [place]: Minimum assist (75% patient's effort) Physical/Nonphysical Assist: [...] activity. Standardized Assessments Standardized Assessments Standardized Assessments: AMPA 6-Clicks Mobility Assessment AMPA 6-Clicks Mobility Assessment Difficulty patient has turning [...] 3-5 steps with a railing?: A little [facility] 6-Clicks Mobility Assessment Total : 16 [...] 06/15/2025 Weaning from mechanically assisted ventilation initiated ([facility]) 06/14/2025 Diabetes 05/05/2025 Benign prostatic hyperplasia 05/05/2025 CAD (coronary artery disease) 04/14/2025 History of coronary angioplasty with insertion of stent 04/14/2025 Ascending aortic aneurysm ([facility]) 04/14/2025 Aortic valve regurgitation 04/14/2025 BMI 30.0-30.9,adult [...] 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) Level of Mobility: Ambulatory- community Mobility [place]: Independent gait without device History of Falls: [...] Mobility Exam: Sit to Supine Level of [place]: Maximum assist (25% patient's effort) Physical/Nonphysical Assist: Verbal Cues, Maximal cues, Additional assist utilized for safety Transfers Transfer Exam: Sit to stand Level of [place]: Moderate assist (50% patient's effort) Physical/Nonphysical Assist: Verbal Cues, Moderate cues, Additional assist utilized for safety Assistive Device: Rollator Transfer Exam: Stand to Sit Level of [place]: Minimum assist (75% patient's effort) Physical/Nonphysical Assist: [...] continued education to improve carryover. Standardized Assessments [facility] 6-Click Daily Activities Help from Other: Don/Doff Regular Lower Body Clothings: A lot Help From Other: Bathing: A lot Help From Other: Toileting: A lot Help From Other: Don/Doff Upper Body Clothings: Little Help From Other: Grooming: Little Help From Other: Eating Meals: None [facility] 6 Click - Daily Activities Score: 16 [...] and plan as documented. 06/15/25 Bradley Forrest HPI Bradley Forrest is [...] Right 06/14/25 0832 Internal jugular 1 GCS: [place] Coma Scale Score: 15 Review of Systems [...] of NG tube. Right internal jugular approach [place]-Shira catheter and mediastinal drain in unchanged position. [...] MD - 06/15/2025 6:48 AM EDT Bradley Frorest Patient was seen and examined with resident [...] Problem(s): Weaning from mechanically assisted ventilation initiated ([facility]) (Nwazbsjj75/20/2025) Arrived intubated and sedated post-op - fast [...] for analgesia prior to leaving the OR. [facility] services were consulted for management of this [...] pressure support 04/05 Edited by: Balta [place], WELL LOGGER, DNP at 06/14/2025 2253 Lines/Drains/Tubes: Patient Lines/Drains/Airways [...] protocol. -SBP<120 in initial post-op period -clevidipine Andres Narvaez MD * Care Plan - Svetlana [...] Ongoing, Progressing Intervention: Promote Activity and Functional [place] Flowsheets (Taken 06/14/20252154) Activity Assistance Provided: assistance, [...] Problem(s): Weaning from mechanically assisted ventilation initiated ([facility]) (Znbefzts84/20/2025) Arrived intubated and sedated post-op - fast [...] for analgesia prior to leaving the OR. [facility] services were consulted for management of this [...] 06/14/25 1327 Mediastinal less than 1 NG/OG [place] Sump Orogastric 18 Fr Center mouth 06/14/25 [...] valve regurgitation Benign prostatic hyperplasia Diabetes Vicente Rutledge, [1] Past Medical History: Diagnosis Date Cardiac murmur Hyperlipidemia Hypertension [2] Past Surgical History: Procedure Laterality Date COLONOSCOPY CORONARY STENT PLACEMENT KNEE SURGERY Right OTHER SURGICAL HISTORY N/A Knee arthroscopy from [employer] SHOULDER SURGERY Right [3] No current facility-administered medications on file prior to encounter. Current Outpatient Medications on File Prior to Encounter Medication Sig Dispense Refill acetaminophen (Tylenol) 325 MG tablet Take 2 tablets by mouth every morning. Under [place] [employer] law, monthly prescriptions (30 days) can be refilled at 25 days and three-month prescriptions (90 days) at 80 days. Please contact the insurance company with questions if refills are denied. (Patient taking differently: Take 2 tablets by mouth every 4 hours as needed. Under [place] law, monthly prescriptions (30 days) [...] Protection: pulse oximeter probe site changed Taken 06/14/20251599 Body Position: turned Intervention: Prevent and Manage VTE (Venous Thromboembolism) Risk Flowsheets (Taken 06/14/2025 1600) VTE Prevention/Management: medication Intervention: Prevent Infection Flowsheets (Taken 06/14/20251717) Infection Prevention: other (see comments) Goal: Optimal [...] maintained Fever Reduction/Comfort Measures: lightweight clothing Taken 06/14/20251599 Isolation Precautions: precautions maintained * Op Note - Phillip Clark MD - 06/14/2025 8:55 AM EDT Operative Note Median sternotomy, aortic valve replacement using a 25 mm [place] mechanical prosthesis. Date: 06/14/25 Location: [facility] Name: Bradley Forrest, : 1955, Diagnoses: Pre-op Diagnosis Severe aortic regurgitation Post-op Diagnosis Severe aortic regurgitation Coronary artery disease due to calcified coronary lesion History of coronary angioplasty with insertion of stent Left ventricular enlargement Procedure(s): Median sternotomy, aortic valve replacement using a 25 mm Saint Jose mechanical prosthesis. Attending Surgeon(s): * Phillip Clark - Primary Grading Machine Feeder(s): * Turner Pablo MD - Fellow Anesthesia: General ASA: IV Blood Administration: Blood Product Administration History None Estimated Blood Loss: 150 mL Drains: Chest Tube Mediastinal 36 Fr (Active) Function -20 cm H2O 06/14/25 1600 Chest Tube Air Leak No 06/14/25 1600 Patency Intervention Tip/tilt 06/14/25 1600 Drainage Description Dark red 06/14/25 1600 NG/OG [place] Sump Orogastric 18 Fr Center mouth (Active) Urethral Catheter Temperature probe 16 Fr. (Active) Implants Type Name Action Serial No. GRAFT PTCH [id number] FELT - [id number] Implanted VALVE ATRIAL 25MM ROTATABL CUF STD PTFE - [id number] - [id number] Implanted [id number] Specimen: Specimens ID Source Frozen? 1 Heart [...] stenting of his coronaries. In addition his blood splatter analyst, Jd Duvall, had done an echocardiogram which [...] was induced, monitoring lines were placed, a [place] catheter was floated into position and a [...] Prolene and a tack seal. One 36 German chest tube was placed. Chest tubes and pacing wires were secured to the anterior abdominal wall. The sternum was reapproximated with #7 casalv-yl-tliuj stainless steel wires, the fasciawas closed with [...] mouth every 4 hours as needed. Under [place] law, monthly prescriptions (30 days) [...] Description 07/07/2025 2:40 PM EST Office Visit [facility] [address], [facility] [address] [place] [address] Phillip Clark MD [address] [place] [address] Pending Results Name Type Priority Associated Diagnoses [...] PANEL, PLASMA Routine 06/16/2025 5:35 PM EDT [place] [facility], E/M 30-74 MINUTES Routine 06/16/2025 [...] PEP THERAPY Routine 06/15/2025 12:00 PM EDT [place] CRITICAL CARE, E/M 30-74 MINUTES Routine 06/15/2025 [...] 1 VIEW Routine 06/15/2025 2:53 AM EDT [place] CRITICAL CARE, ADDL 30 MIN Routine 06/15/2025 12:21 AM EDT Other secondary hypertension [place] CRITICAL CARE, ADDL 30 MIN Routine 06/15/2025 [...] PANEL, ARTERIAL Routine 06/14/2025 6:47 PM EDT [place] CRITICAL CARE, E/M 30-74 MINUTES Routine 06/14/2025 [...] UNSOLICITED RESULTS Routine 06/14/2025 8:13 AM EDT KS -AORT GRF W/CARD BYP F/AORTIC DISSECTION 06/14/2025 [...] - 99 mg/dL 06/20/2025 2:47 AM EDT [facility] BUN, Plasma 22 8 - 23 mg/dL 06/20/2025 2:47 AM EDT [facility] Creatinine, Plasma 0.85 0.70 - 1.20 mg/dL 06/20/2025 2:47 AM EDT [facility] BUN/Creatinine Ratio 26 06/20/2025 2:47 AM EDT [facility] Sodium, Plasma 131(L) 136 - 145 mmol/L 06/20/2025 2:47 AM EDT [facility] Potassium, Plasma 4.0 3.6 - 4.9 mmol/L 06/20/2025 2:47 AM EDT [facility] Chloride, Plasma 102 97 - 107 mmol/L 06/20/2025 2:47 AM EDT [facility] CO2, Plasma 24 22 - 29 mmol/L 06/20/2025 2:47 AM EDT [facility] Anion Gap 5(L) 6 - 16 mmol/L 06/20/2025 2:47 AM EDT [facility] Total Calcium, Plasma 7.9(L) 8.9 - 10.2 mg/dL 06/20/2025 2:47 AM EDT [facility] eGFRcr 94.1 mL/min/1.7 3m*2 06/20/2025 2:47 AM EDT [facility] Comment:Reported eGFRcr in m L/min/1.73m2 is based the CKD-EPI 2020 equation that does not use a race coefficient. Blood Venous blood specimen / Unknown Venipuncture / Unknown 06/20/2025 1:52 AM EDT 06/20/2025 1:59 AM EDT Phillip Clark MD LAB BLOOD ORDERABLES Final R esult Performing Organization Address City/[facility]/ZIP Co de Phone Number [facility] [address] [place] [address] * Phosphorus (06/20/2025 1:52 AM EDT) Phosphorus, Plasma 2.8 2.5 - 4.5 mg/dL 06/20/2025 2:23 AM EDT [facility] Blood Venous blood specimen / Unknown Venipuncture / Unknown 06/20/2025 1:52 AM EDT 06/20/2025 1:59 AM EDT Phillip Clark MD LAB BLOOD ORDERABLES Final R esult Performing Organization Address [facility] Co de Phone Number [facility] [address] [place] [address] * (ABNORMAL) Protime-INR (06/20/2025 1:52 AM EDT) Prothrombin Time 30.4(H) 12.0 - 14.3 sec LAB COAGULATION METHOD 06/20/2025 2:29 AM EDT [facility] INR 2.9(H) 0.9 - 1.1 LAB COAGULATION METHOD 06/20/2025 2:29 AM EDT [facility] Blood Venous blood specimen / Unknown Venipuncture / Unknown 06/20/2025 1:52 AM EDT 06/20/2025 1:59 AM EDT Narrative [facility] - 06/20/2025 2:29 AM EDT [...] of recurrent IA INR 2.5 to 3.5 us Phillip Clark MD LAB BLOOD ORDERABLES Final R esult [facility] [address] [place] [address] * Magnesium (06/20/2025 1:52 AM EDT) Pathologist [facility] Magnesium, Plasma 2.2 1.9 - 2.4 mg/dL 06/20/2025 2:23 AM EDT [facility] Blood Venous blood specimen / Unknown Venipuncture / Unknown 06/20/2025 1:52 AM EDT 06/20/2025 1:59 AM EDT us Phillip Clark MD LAB BLOOD ORDERABLES Final R esult Performing Organization Address City/[facility]/ZIP Co de Phone Number [facility] [address] [place] [address] * (ABNORMAL) CBC (06/20/2025 1:52 AM EDT) [facility] WBC Count 6.95 3.70 - 10.30 10*3/uL LAB HEMATOLOGY METHOD 06/20/2025 2:07 AM EDT [facility] RBC Count 3.73(L) 4.60 - 6.10 10*6/uL LAB HEMATOLOGY METHOD 06/20/2025 2:07 AM EDT [facility] HGB 10.4(L) 13.7 - 17.5 g/dL LAB HEMATOLOGY METHOD 06/20/2025 2:07 AM EDT [facility] HCT 31.9(L) 40.0 - 51.0 % LAB HEMATOLOGY METHOD 06/20/2025 2:07 AM EDT [facility] Platelet Count 187 155 - 369 10*3/uL LAB HEMATOLOGY METHOD 06/20/2025 2:07 AM EDT [facility] MCV 86 79 - 98 fL LAB HEMATOLOGY METHOD 06/20/2025 2:07 AM EDT [facility] MCH 27.9 26.0 - 32.0 pg LAB HEMATOLOGY METHOD 06/20/2025 2:07 AM EDT [facility] MCHC 32.6 30.7 - 35.5 g/dL LAB HEMATOLOGY METHOD 06/20/2025 2:07 AM EDT [facility] RDW 14.8(H) 11.5 - 14.5 % LAB HEMATOLOGY METHOD 06/20/2025 2:07 AM EDT [facility] MPV 10.2 8.8 - 12.5 fL LAB HEMATOLOGY METHOD 06/20/2025 2:07 AM EDT [facility] nRBC 0.0 <=0.0 per 100 WBCs LAB HEMATOLOGY METHOD 06/20/2025 2:07 AM EDT [facility] Blood Venous blood specimen / Unknown Venipuncture / Unknown 06/20/2025 1:52 AM EDT 06/20/2025 1:59 AM EDT us Phillip Clark MD LAB BLOOD ORDERABLES Final R esult [facility] [address] [place] [address] * PERIPHERAL IV (SMARTFORM LINK) (06/20/2025 1:47 [...] IV site covered with: Transparent semipermeable dressing us Phillip Clark MD IV THERAPY ORDERABLES Final Result * ECG Adult (06/19/2025 12:49 PM EDT) EKG DIAGNOSIS CLASS Abnormal MUSE ECG Ventricular Rate 85 BPM MUSE ECG Atrial Rate 85 BPM MUSE ECG KS Interval 176 ms MUSE ECG QRSD Interval 110 ms MUSE ECG QT Interval 402 ms MUSE ECG QTC Interval 478 ms MUSE ECG P Forsan 43 degrees MUSE ECG R Forsan -30 degrees MUSE ECG T Wave Forsan 36 degrees MUSE ECG Diagnosis Poor data quality, interpretation may be adversely affected MUSE ECG Diagnosis Sinus rhythm with premature supraventricular complexes and with occasional premature ventricular complexes MUSE ECG Diagnosis Left axis deviation MUSE ECG Diagnosis Poor R-wave progression MUSE ECG Diagnosis Abnormal ECG MUSE ECG Diagnosis Recommend repeat ECG MUSE ECG Diagnosis MUSE ECG Diagnosis Confirmed by Aman Coe ([id number]) on 06/19/2025 1:33:10 PM MUSE ECG 06/19/2025 12:4 9 PM EDT 06/19/2025 1:33 PM EDT us Barbara MARIE ECG ORDERABLES Final Resul t MUSE ECG * (ABNORMAL) Basic metabolic panel (06/19/2025 2:38 AM EDT) Glucose, Plasma 102(H) 74 - 99 mg/dL 06/19/2025 4:10 AM EDT [facility] BUN, Plasma 25(H) 8 - 23 mg/dL 06/19/2025 4:10 AM EDT [facility] Creatinine, Plasma 1.02 0.70 - 1.20 mg/dL 06/19/2025 4:10 AM EDT [facility] BUN/Creatinine Ratio 25 06/19/2025 4:10 AM EDT [facility] Sodium, Plasma 134(L) 136 - 145 mmol/L 06/19/2025 4:10 AM EDT [facility] Potassium, Plasma 4.6 3.6 - 4.9 mmol/L 06/19/2025 4:10 AM EDT [facility] Comment:Hemolyzed - Potassiu m may be falsely elevated by approximately 0.4-0.7 mmol/L. Chloride, Plasma 102 97 - 107 mmol/L 06/19/2025 4:10 AM EDT [facility] CO2, Plasma 23 22 - 29 mmol/L 06/19/2025 4:10 AM EDT [facility] Anion Gap 9 6 - 16 mmol/L 06/19/2025 4:10 AM EDT [facility] Total Calcium, Plasma 8.4(L) 8.9 - 10.2 mg/dL 06/19/2025 4:10 AM EDT [facility] eGFRcr 79.6 mL/min/1.7 3m*2 06/19/2025 4:10 AM EDT [facility] Comment:Reported eGFRcr in m L/min/1.73m2 is based the CKD-EPI 2020 equation that does not use a race coefficient. Blood Venous blood specimen / Unknown Venipuncture / Unknown 06/19/2025 2:38 AM EDT 06/19/2025 2:54 AM EDT Phillip Clark MD LAB BLOOD ORDERABLES Final R esult Performing Organization Address City/[facility]/ZIP Co de Phone Number [facility] [address] [place] [address] * Phosphorus (06/19/2025 2:38 AM EDT) Phosphorus, Plasma 3.6 2.5 - 4.5 mg/dL 06/19/2025 4:10 AM EDT [facility] Blood Venous blood specimen / Unknown Venipuncture / Unknown 06/19/2025 2:38 AM EDT 06/19/2025 2:54 AM EDT us Phillip Clark MD LAB BLOOD ORDERABLES Final R esult Performing Organization Address City/[facility]/ZIP Co de Phone Number [facility] [address] [place] [address] * (ABNORMAL) Protime-INR (06/19/2025 2:38 AM EDT) Prothrombin Time 26.3(H) 12.0 - 14.3 sec LAB COAGULATION METHOD 06/19/2025 3:09 AM EDT [facility] INR 2.4(H) 0.9 - 1.1 LAB COAGULATION METHOD 06/19/2025 3:09 AM EDT [facility] Blood Venous blood specimen / Unknown Venipuncture / Unknown 06/19/2025 2:38 AM EDT 06/19/2025 2:54 AM EDT Narrative [facility] - 06/19/2025 3:09 AM EDT [...] ORDERABLES Final R esult Performing Organization Address City/[facility]/ZIP Co de Phone Number [facility] [address] [place] [address] * Magnesium (06/19/2025 2:38 AM EDT) Pathologist [facility] Magnesium, Plasma 2.4 1.9 - 2.4 mg/dL 06/19/2025 4:10 AM EDT [facility] Blood Venous blood specimen / Unknown Venipuncture / Unknown 06/19/2025 2:38 AM EDT 06/19/2025 2:54 AM EDT Phillip Clark MD LAB BLOOD ORDERABLES Final R esult Performing Organization Address City/[facility] Co de Phone Number [facility] [address] [place] [address] * (ABNORMAL) CBC (06/19/2025 2:38 AM EDT) WBC Count 6.94 3.70 - 10.30 10*3/uL LAB HEMATOLOGY METHOD 06/19/2025 3:17 AM EDT [facility] RBC Count 4.12(L) 4.60 - 6.10 10*6/uL LAB HEMATOLOGY METHOD 06/19/2025 3:17 AM EDT [facility] HGB 11.5(L) 13.7 - 17.5 g/dL LAB HEMATOLOGY METHOD 06/19/2025 3:17 AM EDT [facility] HCT 35.7(L) 40.0 - 51.0 % LAB HEMATOLOGY METHOD 06/19/2025 3:17 AM EDT [facility] Platelet Count 165 155 - 369 10*3/uL LAB HEMATOLOGY METHOD 06/19/2025 3:17 AM EDT [facility] MCV 87 79 - 98 fL LAB HEMATOLOGY METHOD 06/19/2025 3:17 AM EDT [facility] MCH 27.9 26.0 - 32.0 pg LAB HEMATOLOGY METHOD 06/19/2025 3:17 AM EDT [facility] MCHC 32.2 30.7 - 35.5 g/dL LAB HEMATOLOGY METHOD 06/19/2025 3:17 AM EDT [facility] RDW 14.8(H) 11.5 - 14.5 % LAB HEMATOLOGY METHOD 06/19/2025 3:17 AM EDT [facility] MPV 10.6 8.8 - 12.5 fL LAB HEMATOLOGY METHOD 06/19/2025 3:17 AM EDT [facility] nRBC 0.0 <=0.0 per 100 WBCs LAB HEMATOLOGY METHOD 06/19/2025 3:17 AM EDT [facility] Blood Venous blood specimen / Unknown Venipuncture / Unknown 06/19/2025 2:38 AM EDT 06/19/2025 2:54 AM EDT us Phillip Clark MD LAB BLOOD ORDERABLES Final R esult [facility] [address] [place] [address] * XR Chest 1 View (06/19/2025 1:50 [...] Kamran Arellano MD on 06/19/2025 5:26 AM us Phillip Clark MD IMG XR [...] Kamran Arellano MD on 06/18/2025 8:13 AM us Phillip Clark MD IMG XR PROCEDURES Final Resu lt * (ABNORMAL) Basic metabolic panel (06/18/2025 1:43 AM EDT) Glucose, Plasma 93 74 - 99 mg/dL 06/18/2025 2:17 AM EDT [facility] BUN, Plasma 18 8 - 23 mg/dL 06/18/2025 2:17 AM EDT [facility] Creatinine, Plasma 0.82 0.70 - 1.20 mg/dL 06/18/2025 2:17 AM EDT [facility] BUN/Creatinine Ratio 22 06/18/2025 2:17 AM EDT [facility] Sodium, Plasma 134(L) 136 - 145 mmol/L 06/18/2025 2:17 AM EDT [facility] Potassium, Plasma 3.7 3.6 - 4.9 mmol/L 06/18/2025 2:17 AM EDT [facility] Chloride, Plasma 100 97 - 107 mmol/L 06/18/2025 2:17 AM EDT [facility] CO2, Plasma 26 22 - 29 mmol/L 06/18/2025 2:17 AM EDT [facility] Anion Gap 8 6 - 16 mmol/L 06/18/2025 2:17 AM EDT [facility] Total Calcium, Plasma 8.1(L) 8.9 - 10.2 mg/dL 06/18/2025 2:17 AM EDT [facility] eGFRcr 95.1 mL/min/1.7 3m*2 06/18/2025 2:17 AM EDT [facility] Comment:Reported eGFRcr in m L/min/1.73m2 is based the CKD-EPI 2020 equation that does not use a race coefficient. Blood Blood sample taken from central line / Unknown Venipuncture / Unknown 06/18/2025 1:43 AM EDT 06/18/2025 1:48 AM EDT Phillip Clark MD LAB BLOOD ORDERABLES Final R esult Performing Organization Address City/State/[facility] Co de Phone Number [facility] [address] [place] [address] * Phosphorus (06/18/2025 1:43 AM EDT) Phosphorus, Plasma 2.6 2.5 - 4.5 mg/dL 06/18/2025 2:17 AM EDT [facility] Blood Blood sample taken from central line / Unknown Venipuncture / Unknown 06/18/2025 1:43 AM EDT 06/18/2025 1:48 AM EDT Phillip Clark MD LAB BLOOD ORDERABLES Final R esult Performing Organization Address [facility] Co de Phone Number [facility] [address] [place] [address] * (ABNORMAL) Protime-INR (06/18/2025 1:43 AM EDT) Prothrombin Time 25.2(H) 12.0 - 14.3 sec LAB COAGULATION METHOD 06/18/2025 2:07 AM EDT [facility] INR 2.3(H) 0.9 - 1.1 LAB COAGULATION METHOD 06/18/2025 2:07 AM EDT [facility] Blood Blood sample taken from central line / Unknown Venipuncture / Unknown 06/18/2025 1:43 AM EDT 06/18/2025 1:48 AM EDT Narrative [facility] - 06/18/2025 2:07 AM EDT [...] of recurrent IA INR 2.5 to 3.5 us Phillip Clark MD LAB BLOOD ORDERABLES Final R esult Performing Organization Address [facility] Co de Phone Number [facility] [address] [place] [address] * Magnesium (06/18/2025 1:43 AM EDT) Magnesium, Plasma 2.3 1.9 - 2.4 mg/dL 06/18/2025 2:17 AM EDT [facility] Blood Blood sample taken from central line / Unknown Venipuncture / Unknown 06/18/2025 1:43 AM EDT 06/18/2025 1:48 AM EDT us Phillip Clark MD LAB BLOOD ORDERABLES Final R esult [facility] [address] [place] [address] * (ABNORMAL) CBC (06/18/2025 1:43 AM EDT) Pathologist [facility] WBC Count 8.51 3.70 - 10.30 10*3/uL LAB HEMATOLOGY METHOD 06/18/2025 1:54 AM EDT [facility] RBC Count 3.67(L) 4.60 - 6.10 10*6/uL LAB HEMATOLOGY METHOD 06/18/2025 1:54 AM EDT [facility] HGB 10.6(L) 13.7 - 17.5 g/dL LAB HEMATOLOGY METHOD 06/18/2025 1:54 AM EDT [facility] HCT 31.2(L) 40.0 - 51.0 % LAB HEMATOLOGY METHOD 06/18/2025 1:54 AM EDT [facility] Platelet Count 121(L) 155 - 369 10*3/uL LAB HEMATOLOGY METHOD 06/18/2025 1:54 AM EDT [facility] MCV 85 79 - 98 fL LAB HEMATOLOGY METHOD 06/18/2025 1:54 AM EDT [facility] MCH 28.9 26.0 - 32.0 pg LAB HEMATOLOGY METHOD 06/18/2025 1:54 AM EDT [facility] MCHC 34.0 30.7 - 35.5 g/dL LAB HEMATOLOGY METHOD 06/18/2025 1:54 AM EDT [facility] RDW 14.7(H) 11.5 - 14.5 % LAB HEMATOLOGY METHOD 06/18/2025 1:54 AM EDT [facility] MPV 10.4 8.8 - 12.5 fL LAB HEMATOLOGY METHOD 06/18/2025 1:54 AM EDT [facility] nRBC 0.0 <=0.0 per 100 WBCs LAB HEMATOLOGY METHOD 06/18/2025 1:54 AM EDT [facility] Blood Blood sample taken from central line / Unknown Venipuncture / Unknown 06/18/2025 1:43 AM EDT 06/18/2025 1:48 AM EDT us Phillip Clark MD LAB BLOOD ORDERABLES Final R esult [facility] [address] [place] [address] * XR Chest 1 View (06/17/2025 3:14 [...] - 99 mg/dL 06/17/2025 12:54 AM EDT [facility] BUN, Plasma 15 8 - 23 mg/dL 06/17/2025 12:54 AM EDT [facility] Creatinine, Plasma 0.81 0.70 - 1.20 mg/dL 06/17/2025 12:54 AM EDT [facility] BUN/Creatinine Ratio 19 06/17/2025 12:54 AM EDT [facility] Sodium, Plasma 133(L) 136 - 145 mmol/L 06/17/2025 12:54 AM EDT [facility] Potassium, Plasma 3.9 3.6 - 4.9 mmol/L 06/17/2025 12:54 AM EDT [facility] Chloride, Plasma 98 97 - 107 mmol/L 06/17/2025 12:54 AM EDT [facility] CO2, Plasma 25 22 - 29 mmol/L 06/17/2025 12:54 AM EDT [facility] Anion Gap 10 6 - 16 mmol/L 06/17/2025 12:54 AM EDT [facility] Total Calcium, Plasma 8.1(L) 8.9 - 10.2 mg/dL 06/17/2025 12:54 AM EDT [facility] eGFRcr 95.4 mL/min/1.7 3m*2 06/17/2025 12:54 AM EDT [facility] Comment:Reported eGFRcr in m L/min/1.73m2 is based the CKD-EPI 2020 equation that does not use a race coefficient. Blood Blood sample taken from central line / Unknown Venipuncture / Unknown 06/17/2025 12:17 AM EDT 06/17/2025 12:24 AM EDT Phillip Clark MD LAB BLOOD ORDERABLES Final R esult Performing Organization Address City/[facility] Co de Phone Number [facility] [address] [place] [address] * Phosphorus (06/17/2025 12:17 AM EDT) Phosphorus, Plasma 2.9 2.5 - 4.5 mg/dL 06/17/2025 12:54 AM EDT [facility] Blood Blood sample taken from central line / Unknown Venipuncture / Unknown 06/17/2025 12:17 AM EDT 06/17/2025 12:24 AM EDT Phillip Clark MD LAB BLOOD ORDERABLES Final R esult Performing Organization Address City/[facility] de Phone Number [facility] [address] [place] [address] * (ABNORMAL) Protime-INR (06/17/2025 12:17 AM EDT) Prothrombin Time 18.7(H) 12.0 - 14.3 sec LAB COAGULATION METHOD 06/17/2025 1:16 AM EDT [facility] INR 1.5(H) 0.9 - 1.1 LAB COAGULATION METHOD 06/17/2025 1:16 AM EDT [facility] Blood Blood sample taken from central line / Unknown Venipuncture / Unknown 06/17/2025 12:17 AM EDT 06/17/2025 12:24 AM EDT Narrative [facility] - 06/17/2025 1:16 AM EDT [...] ORDERABLES Final R esult Performing Organization Address City/[facility]/ZIP Co de Phone Number [facility] [address] [place] [address] * Magnesium (06/17/2025 12:17 AM EDT) [facility] Magnesium, Plasma 2.3 1.9 - 2.4 mg/dL 06/17/2025 12:54 AM EDT [facility] Blood Blood sample taken from central line / Unknown Venipuncture / Unknown 06/17/2025 12:17 AM EDT 06/17/2025 12:24 AM EDT us Phillip Clark MD LAB BLOOD ORDERABLES Final R esult Performing Organization Address City/[facility] Co de Phone Number [facility] [address] [place] [address] * (ABNORMAL) CBC (06/17/2025 12:17 AM EDT) [facility] WBC Count 10.83(H) 3.70 - 10.30 10*3/uL LAB HEMATOLOGY METHOD 06/17/2025 12:32 AM EDT [facility] RBC Count 4.08(L) 4.60 - 6.10 10*6/uL LAB HEMATOLOGY METHOD 06/17/2025 12:32 AM EDT [facility] HGB 11.3(L) 13.7 - 17.5 g/dL LAB HEMATOLOGY METHOD 06/17/2025 12:32 AM EDT [facility] HCT 35.0(L) 40.0 - 51.0 % LAB HEMATOLOGY METHOD 06/17/2025 12:32 AM EDT [facility] Platelet Count 116(L) 155 - 369 10*3/uL LAB HEMATOLOGY METHOD 06/17/2025 12:32 AM EDT [facility] MCV 86 79 - 98 fL LAB HEMATOLOGY METHOD 06/17/2025 12:32 AM EDT [facility] MCH 27.7 26.0 - 32.0 pg LAB HEMATOLOGY METHOD 06/17/2025 12:32 AM EDT [facility] MCHC 32.3 30.7 - 35.5 g/dL LAB HEMATOLOGY METHOD 06/17/2025 12:32 AM EDT [facility] RDW 15.1(H) 11.5 - 14.5 % LAB HEMATOLOGY METHOD 06/17/2025 12:32 AM EDT [facility] MPV 10.3 8.8 - 12.5 fL LAB HEMATOLOGY METHOD 06/17/2025 12:32 AM EDT [facility] nRBC 0.0 <=0.0 per 100 WBCs LAB HEMATOLOGY METHOD 06/17/2025 12:32 AM EDT [facility] Blood Blood sample taken from central line / Unknown Venipuncture / Unknown 06/17/2025 12:17 AM EDT 06/17/2025 12:24 AM EDT us Phillip Clark MD LAB BLOOD ORDERABLES Final R esult Performing Organization Address City/[facility]/ZIP Co de Phone Number [facility] [address] [place] [address] * Magnesium (06/16/2025 5:35 PM EDT) Magnesium, Plasma 2.2 1.9 - 2.4 mg/dL 06/16/2025 7:41 PM EDT [facility] Blood Venous blood specimen / Unknown Venipuncture / Unknown 06/16/2025 5:35 PM EDT 06/16/2025 7:12 PM EDT us Phillip Clark MD LAB BLOOD ORDERABLES Final R esult [facility] [address] [place] [address] * (ABNORMAL) Renal function panel (06/16/2025 5:35 PM EDT) Glucose, Plasma 89 74 - 99 mg/dL 06/16/2025 7:41 PM EDT [facility] BUN, Plasma 15 8 - 23 mg/dL 06/16/2025 7:41 PM EDT [facility] Creatinine, Plasma 0.79 0.70 - 1.20 mg/dL 06/16/2025 7:41 PM EDT [facility] BUN/Creatinine Ratio 19 06/16/2025 7:41 PM EDT [facility] Sodium, Plasma 134(L) 136 - 145 mmol/L 06/16/2025 7:41 PM EDT [facility] Potassium, Plasma 3.8 3.6 - 4.9 mmol/L 06/16/2025 7:41 PM EDT [facility] Chloride, Plasma 98 97 - 107 mmol/L 06/16/2025 7:41 PM EDT [facility] CO2, Plasma 25 22 - 29 mmol/L 06/16/2025 7:41 PM EDT [facility] Anion Gap 11 6 - 16 mmol/L 06/16/2025 7:41 PM EDT [facility] Total Calcium, Plasma 8.4(L) 8.9 - 10.2 mg/dL 06/16/2025 7:41 PM EDT [facility] Phosphorus, Plasma 2.2(L) 2.5 - 4.5 mg/dL 06/16/2025 7:41 PM EDT [facility] Albumin, Plasma 3.4(L) 3.5 - 5.2 g/dL 06/16/2025 7:41 PM EDT [facility] eGFRcr 96.2 mL/min/1.7 3m*2 06/16/2025 7:41 PM EDT [facility] Comment:Reported eGFRcr in m L/min/1.73m2 is based the CKD-EPI 2020 equation that does not use a race coefficient. Blood Venous blood specimen / Unknown Venipuncture / Unknown 06/16/2025 5:35 PM EDT 06/16/2025 7:12 PM EDT us Phillip Clark MD LAB BLOOD ORDERABLES Final R esult [facility] [address] [place] [address] * [place] CRITICAL CARE, E/M 30-74 MINUTES (06/16/2025 9:58 [...] Comment 06/16/2025 8:45 AM EDT [facility] Photographic Editor ID Fariba Blanton 025 8:45 AM EDT [facility] Device ID [id number] 06/16/2025 8:45 AM EDT [facility] Specimen Type POC Arterial 06/16/2025 8:45 AM EDT [facility] Blood Arterial blood specimen / Unknown 06/16/2025 8:40 AM EDT 06/16/2025 8:45 AM EDT us Phillip Clark MD LAB POINT OF CARE TE ST DOCKED DEVICE UNSOLICITED RESULTS Final Result [facility] [address] [place] [address] * (ABNORMAL) Basic metabolic panel (06/16/2025 5:58 AM EDT) Glucose, Plasma 124(H) 74 - 99 mg/dL 06/16/2025 6:35 AM EDT [facility] BUN, Plasma 16 8 - 23 mg/dL 06/16/2025 6:35 AM EDT [facility] Creatinine, Plasma 0.83 0.70 - 1.20 mg/dL 06/16/2025 6:35 AM EDT [facility] BUN/Creatinine Ratio 19 06/16/2025 6:35 AM EDT [facility] Sodium, Plasma 132(L) 136 - 145 mmol/L 06/16/2025 6:35 AM EDT [facility] Potassium, Plasma 3.8 3.6 - 4.9 mmol/L 06/16/2025 6:35 AM EDT [facility] Chloride, Plasma 100 97 - 107 mmol/L 06/16/2025 6:35 AM EDT [facility] CO2, Plasma 25 22 - 29 mmol/L 06/16/2025 6:35 AM EDT [facility] Anion Gap 7 6 - 16 mmol/L 06/16/2025 6:35 AM EDT [facility] Total Calcium, Plasma 8.4(L) 8.9 - 10.2 mg/dL 06/16/2025 6:35 AM EDT [facility] eGFRcr 94.7 mL/min/1.7 3m*2 06/16/2025 6:35 AM EDT [facility] Comment:Reported eGFRcr in m L/min/1.73m2 is based the CKD-EPI 2020 equation that does not use a race coefficient. Blood Arterial blood specimen / Unknown Venipuncture / Unknown 06/16/2025 5:58 AM EDT 06/16/2025 6:05 AM EDT us Phillip Clark MD LAB BLOOD ORDERABLES Final R esult [facility] [address] [place] [address] * XR Chest 1 View (06/16/2025 5:14 AM EDT) Anatomical Region Laterality Modality Chest Digital Radiogra phy Impressions 06/16/2025 8:15 AM EDT Interval removal of the [place]ira catheter, the right IJ sheath remains in [...] post median sternotomy. Interval removal of the [place]ira catheter, right IJ sheath remains in place with tip in the mid to distal SVC. No pneumothorax or pleural effusions. Ongoing interstitial edema. Procedure Note Mona Smith MD - 06/16/2025 CLINICAL INDICATION: Post-Op Cardiac Surgery TECHNIQUE: XR CHEST 1 VIEW COMPARISON: Chest radiograph 06/15/2025 FINDINGS: Enlarged cardiac silhouette stable status post median sternotomy. Intervalremoval of the [place]ira catheter, right IJ sheath remains in place withtip in the mid to distal SVC. No pneumothorax or pleural effusions. Ongoing interstitial edema. IMPRESSION: Interval removal of the [place]-Shira catheter, the right IJ sheath remainsin place [...] - 4.5 mg/dL 06/16/2025 1:12 AM EDT [facility] Blood Arterial blood specimen / Unknown Venipuncture / Unknown 06/16/2025 12:36 AM EDT 06/16/2025 12:48 AM EDT Phillip Clark MD LAB BLOOD ORDERABLES Final R esult Performing Organization Address City/[facility]/ZIP Co de Phone Number [facility] [address] [place] [address] * (ABNORMAL) Protime-INR (06/16/2025 12:36 AM EDT) Prothrombin Time 18.0(H) 12.0 - 14.3 sec LAB COAGULATION METHOD 06/16/2025 1:06 AM EDT [facility] INR 1.5(H) 0.9 - 1.1 LAB COAGULATION METHOD 06/16/2025 1:06 AM EDT [facility] Blood Arterial blood specimen / Unknown Venipuncture / Unknown 06/16/2025 12:36 AM EDT 06/16/2025 12:48 AM EDT Narrative [facility] - 06/16/2025 1:06 AM EDT [...] of recurrent IA INR 2.5 to 3.5 us Phillip Clark MD LAB BLOOD ORDERABLES Final R esult [facility] [address] [place] [address] * (ABNORMAL) Magnesium (06/16/2025 12:36 AM EDT) Magnesium, Plasma 2.5(H) 1.9 - 2.4 mg/dL 06/16/2025 1:12 AM EDT [facility] Blood Arterial blood specimen / Unknown Venipuncture / Unknown 06/16/2025 12:36 AM EDT 06/16/2025 12:48 AM EDT us Phillip Clark MD LAB BLOOD ORDERABLES Final R esult [facility] [address] [place] [address] * (ABNORMAL) CBC (06/16/2025 12:36 AM EDT) WBC Count 13.67(H) 3.70 - 10.30 10*3/uL LAB HEMATOLOGY METHOD 06/16/2025 1:01 AM EDT [facility] RBC Count 4.36(L) 4.60 - 6.10 10*6/uL LAB HEMATOLOGY METHOD 06/16/2025 1:01 AM EDT [facility] HGB 12.3(L) 13.7 - 17.5 g/dL LAB HEMATOLOGY METHOD 06/16/2025 1:01 AM EDT [facility] HCT 37.1(L) 40.0 - 51.0 % LAB HEMATOLOGY METHOD 06/16/2025 1:01 AM EDT [facility] Platelet Count 106(L) 155 - 369 10*3/uL LAB HEMATOLOGY METHOD 06/16/2025 1:01 AM EDT [facility] MCV 85 79 - 98 fL LAB HEMATOLOGY METHOD 06/16/2025 1:01 AM EDT [facility] MCH 28.2 26.0 - 32.0 pg LAB HEMATOLOGY METHOD 06/16/2025 1:01 AM EDT [facility] MCHC 33.2 30.7 - 35.5 g/dL LAB HEMATOLOGY METHOD 06/16/2025 1:01 AM EDT [facility] RDW 15.4(H) 11.5 - 14.5 % LAB HEMATOLOGY METHOD 06/16/2025 1:01 AM EDT [facility] MPV 10.8 8.8 - 12.5 fL LAB HEMATOLOGY METHOD 06/16/2025 1:01 AM EDT [facility] nRBC 0.0 <=0.0 per 100 WBCs LAB HEMATOLOGY METHOD 06/16/2025 1:01 AM EDT [facility] Blood Arterial blood specimen / Unknown Venipuncture / Unknown 06/16/2025 12:36 AM EDT 06/16/2025 12:48 AM EDT us Phillip Clark MD LAB BLOOD ORDERABLES Final R esult [facility] [address] [place] [address] * (ABNORMAL) Blood gas, arterial (06/16/2025 12:36 AM EDT) pH, Arterial 7.43(H) 7.31 - 7.42 LAB HEMATOLOGY METHOD 06/16/2025 12:58 AM EDT [facility] pCO2, Arterial 41 32 - 45 mmHg LAB HEMATOLOGY METHOD 06/16/2025 12:58 AM EDT [facility] pO2, Arterial 65(L) >80 mmHg LAB HEMATOLOGY METHOD 06/16/2025 12:58 AM EDT [facility] SO2, Measured, Arterial 94 94 - 98 % LAB HEMATOLOGY METHOD 06/16/2025 12:58 AM EDT [facility] Base Excess, Arterial 2.5 -2.0 - 3.0 mmol/L LAB HEMATOLOGY METHOD 06/16/2025 12:58 AM EDT [facility] Bicarbonate, Calculated, Arterial 27(H) 22 - 26 mmol/L LAB HEMATOLOGY METHOD 06/16/2025 12:58 AM EDT [facility] Hematocrit, Whole Blood 37.9(L) 40.0 - 51.0 % LAB HEMATOLOGY METHOD 06/16/2025 12:58 AM EDT [facility] Sodium, Whole Blood 133(L) 136 - 145 mmol/L LAB HEMATOLOGY METHOD 06/16/2025 12:58 AM EDT [facility] Potassium, Whole Blood 3.4(L) 3.6 - 4.9 mmol/L LAB HEMATOLOGY METHOD 06/16/2025 12:58 AM EDT [facility] Chloride, Whole Blood 100 97 - 107 mmol/L LAB HEMATOLOGY METHOD 06/16/2025 12:58 AM EDT [facility] Glucose, Whole Blood 124(H) 74 - 99 mg/dL LAB HEMATOLOGY METHOD 06/16/2025 12:58 AM EDT [facility] Ionized Calcium, Whole Blood 4.3(L) 4.6 - 5.1 mg/dL LAB HEMATOLOGY METHOD 06/16/2025 12:58 AM EDT [facility] Lactate, Arterial, Whole Blood 1.0 0.5 - 1.6 mmol/L LAB HEMATOLOGY METHOD 06/16/2025 12:58 AM EDT [facility] Blood Arterial blood specimen / Unknown Arterial Puncture / Unknown 06/16/2025 12:36 AM EDT 06/16/2025 12:55 AM EDT us Phillip Clark MD LAB BLOOD ORDERABLES Final R esult Performing Organization Address City/[facility] Co de Phone Number [facility] [address] [place] [address] * (ABNORMAL) POCT glucose meter (06/15/2025 8:00 PM EDT) POCT Glucose 120(H) 74 - 99 mg/dL 06/15/2025 8:01 PM EDT [facility] Comment:Accuracy of a glucos [...] for testing. Comment 06/15/2025 8:01 PM EDT [facility] Photographic Editor ID Svetlana Reilly 8:01 PM EDT [facility] Device ID [id number] 06/15/2025 8:01 PM EDT [facility] Specimen Type POC Capillary 06/15/2025 8:01 PM EDT [facility] Blood Capillary blood specimen / Unknown 06/15/2025 8:00 PM EDT 06/15/2025 8:01 PM EDT us Phillip Clark MD LAB POINT OF CARE TE ST DOCKED DEVICE UNSOLICITED RESULTS Final Result Performing Organization Address City/[facility]/ZIP Co de Phone Number [facility] [address] [place] [phone] * (ABNORMAL) POCT glucose meter (06/15/2025 5:56 PM EDT) [facility] POCT Glucose 121(H) 74 - 99 mg/dL 06/15/2025 5:57 PM EDT [facility] Comment:Accuracy of a glucos [...] Comment 06/15/2025 5:57 PM EDT [facility] Photographic Editor ID Bony Thomas 025 5:57 PM EDT [facility] Device ID [id number] 06/15/2025 5:57 PM EDT [facility] Specimen Type POC Arterial 06/15/2025 5:57 PM EDT [facility] Blood Arterial blood specimen / Unknown 06/15/2025 5:56 PM EDT 06/15/2025 5:57 PM EDT us Phillip Clark MD LAB POINT OF CARE TE ST DOCKED DEVICE UNSOLICITED RESULTS Final Result Performing Organization Address City/[facility]/ZIP Co de Phone Number [facility] [address] [place] [address] * Magnesium (06/15/2025 4:11 PM EDT) [facility] Magnesium, Plasma 2.1 1.9 - 2.4 mg/dL 06/15/2025 6:21 PM EDT [facility] Blood Venous blood specimen / Unknown Venipuncture / Unknown 06/15/2025 4:11 PM EDT 06/15/2025 4:39 PM EDT us Phillip Clark MD LAB BLOOD ORDERABLES Final R esult [facility] [address] [place] [address] * Phosphorus (06/15/2025 4:11 PM EDT) Phosphorus, Plasma 2.9 2.5 - 4.5 mg/dL 06/15/2025 5:12 PM EDT [facility] Blood Venous blood specimen / Unknown Venipuncture / Unknown 06/15/2025 4:11 PM EDT 06/15/2025 4:39 PM EDT us Phillip Clark MD LAB BLOOD ORDERABLES Final R esult [facility] [address] [place] [address] * (ABNORMAL) Basic metabolic panel (06/15/2025 4:11 PM EDT) Pathologist [facility] Glucose, Plasma 123(H) 74 - 99 mg/dL 06/15/2025 5:12 PM EDT [facility] BUN, Plasma 19 8 - 23 mg/dL 06/15/2025 5:12 PM EDT [facility] Creatinine, Plasma 0.88 0.70 - 1.20 mg/dL 06/15/2025 5:12 PM EDT [facility] BUN/Creatinine Ratio 22 06/15/2025 5:12 PM EDT [facility] Sodium, Plasma 133(L) 136 - 145 mmol/L 06/15/2025 5:12 PM EDT [facility] Potassium, Plasma 3.9 3.6 - 4.9 mmol/L 06/15/2025 5:12 PM EDT [facility] Chloride, Plasma 102 97 - 107 mmol/L 06/15/2025 5:12 PM EDT [facility] CO2, Plasma 23 22 - 29 mmol/L 06/15/2025 5:12 PM EDT [facility] Anion Gap 8 6 - 16 mmol/L 06/15/2025 5:12 PM EDT [facility] Total Calcium, Plasma 8.6(L) 8.9 - 10.2 mg/dL 06/15/2025 5:12 PM EDT [facility] eGFRcr 93.1 mL/min/1.7 3m*2 06/15/2025 5:12 PM EDT [facility] Comment:Reported eGFRcr in m L/min/1.73m2 is based the CKD-EPI 2020 equation that does not use a race coefficient. Blood Venous blood specimen / Unknown Venipuncture / Unknown 06/15/2025 4:11 PM EDT 06/15/2025 4:39 PM EDT us Phillip Clark MD LAB BLOOD ORDERABLES Final R esult Performing Organization Address City/[facility]/ZIP Co de Phone Number [facility] [address] [place] [address] * (ABNORMAL) POCT glucose meter (06/15/2025 12:14 PM EDT) [facility] Signature POCT Glucose 137(H) 74 - 99 mg/dL 06/15/2025 12:16 PM EDT [facility] Comment:Accuracy of a glucos [...] Comment 06/15/2025 12:16 PM EDT [facility] Photographic Editor ID Bony Thomas 025 12:16 PM EDT [facility] Device ID [id number] 06/15/2025 12:16 PM EDT [facility] Specimen Type POC Arterial 06/15/2025 12:16 PM EDT [facility] Blood Arterial blood specimen / Unknown 06/15/2025 12:14 PM EDT 06/15/2025 12:16 PM EDT us Phillip Clark MD LAB POINT OF CARE TE ST DOCKED DEVICE UNSOLICITED RESULTS Final Result Performing Organization Address City/[facility]/ZIP Co de Phone Number [facility] [address] [place] [address] * [place] CRIT[facility], E/M 30-74 MINUTES (06/15/2025 9:19 [...] - 99 mg/dL 06/15/2025 8:25 AM EDT [facility] Comment:Accuracy of a glucos e result [...] for testing. Comment 06/15/2025 8:25 AM EDT [facility] Photographic Editor ID Bony Thomas 025 8:25 AM EDT [facility] Device ID [id number] 06/15/2025 8:25 AM EDT [facility] Specimen Type POC Arterial 06/15/2025 8:25 AM EDT [facility] Blood Arterial blood specimen / Unknown 06/15/2025 8:24 AM EDT 06/15/2025 8:25 AM EDT us Phillip Clark MD LAB POINT OF CARE TE ST DOCKED DEVICE UNSOLICITED RESULTS Final Result [facility] [address] [place] [id number] * (ABNORMAL) CBC and Differential (06/15/2025 8:18 AM EDT) [facility] Signature WBC Count 12.56(H) 3.70 - 10.30 10*3/uL LAB HEMATOLOGY METHOD 06/15/2025 8:47 AM EDT [facility] RBC Count 4.60 4.60 - 6.10 10*6/uL LAB HEMATOLOGY METHOD 06/15/2025 8:47 AM EDT [facility] HGB 12.8(L) 13.7 - 17.5 g/dL LAB HEMATOLOGY METHOD 06/15/2025 8:47 AM EDT [facility] HCT 39.4(L) 40.0 - 51.0 % LAB HEMATOLOGY METHOD 06/15/2025 8:47 AM EDT [facility] Platelet Count 120(L) 155 - 369 10*3/uL LAB HEMATOLOGY METHOD 06/15/2025 8:47 AM EDT [facility] MCV 86 79 - 98 fL LAB HEMATOLOGY METHOD 06/15/2025 8:47 AM EDT [facility] MCH 27.8 26.0 - 32.0 pg LAB HEMATOLOGY METHOD 06/15/2025 8:47 AM EDT [facility] MCHC 32.5 30.7 - 35.5 g/dL LAB HEMATOLOGY METHOD 06/15/2025 8:47 AM EDT [facility] RDW 15.5(H) 11.5 - 14.5 % LAB HEMATOLOGY METHOD 06/15/2025 8:47 AM EDT [facility] MPV 10.6 8.8 - 12.5 fL LAB HEMATOLOGY METHOD 06/15/2025 8:47 AM EDT [facility] nRBC 0.0 <=0.0 per 100 WBCs LAB HEMATOLOGY METHOD 06/15/2025 8:47 AM EDT [facility] Differential Type Automated LAB HEMATOLOGY METHOD 06/15/2025 8:47 AM EDT [facility] Neutrophils % 84 % LAB HEMATOLOGY METHOD 06/15/2025 8:47 AM EDT [facility] Lymphocytes % 5 % LAB HEMATOLOGY METHOD 06/15/2025 8:47 AM EDT [facility] Monocytes % 10 % LAB HEMATOLOGY METHOD 06/15/2025 8:47 AM EDT [facility] Eosinophils % 0 % LAB HEMATOLOGY METHOD 06/15/2025 8:47 AM EDT [facility] Basophils % 0 % LAB HEMATOLOGY METHOD 06/15/2025 8:47 AM EDT [facility] Immature Granulocytes % 1 % LAB HEMATOLOGY METHOD 06/15/2025 8:47 AM EDT [facility] Neutrophils Absolute 10.59(H) 1.60 - 6.10 10*3/uL LAB HEMATOLOGY METHOD 06/15/2025 8:47 AM EDT [facility] Lymphocytes Absolute 0.60(L) 1.20 - 3.90 10*3/uL LAB HEMATOLOGY METHOD 06/15/2025 8:47 AM EDT [facility] Monocytes Absolute 1.29(H) 0.30 - 0.90 10*3/uL LAB HEMATOLOGY METHOD 06/15/2025 8:47 AM EDT [facility] Eosinophils Absolute 0.00 0.00 - 0.50 10*3/uL LAB HEMATOLOGY METHOD 06/15/2025 8:47 AM EDT [facility] Basophils Absolute 0.02 0.00 - 0.10 10*3/uL LAB HEMATOLOGY METHOD 06/15/2025 8:47 AM EDT [facility] Immature Granulocytes Absolute 0.06 0.00 - 0.06 10*3/uL LAB HEMATOLOGY METHOD 06/15/2025 8:47 AM EDT [facility] Blood Venous blood specimen / Unknown Venipuncture / Unknown 06/15/2025 8:18 AM EDT 06/15/2025 8:34 AM EDT Narrative [facility] - 06/15/2025 8:47 AM EDT Therapeutic decision making should be based on absolute values, rather than percentages. us Phillip Clark MD LAB BLOOD ORDERABLES Final R esult [facility] [address] [place] [address] * (ABNORMAL) Protime-INR (06/15/2025 6:40 AM EDT) Prothrombin Time 16.5(H) 12.0 - 14.3 sec LAB COAGULATION METHOD 06/15/2025 7:53 AM EDT [facility] INR 1.3(H) 0.9 - 1.1 LAB COAGULATION METHOD 06/15/2025 7:53 AM EDT [facility] Blood Arterial blood specimen / Unknown Venipuncture / Unknown 06/15/2025 6:40 AM EDT 06/15/2025 6:47 AM EDT Narrative [facility] - 06/15/2025 7:53 AM EDT [...] ORDERABLES Final R esult Performing Organization Address City/[facility] Co de Phone Number [facility] [address] [place] [address] * Ionized calcium, whole blood (06/15/2025 6:40 AM EDT) Pathologist [facility] Ionized Calcium, Whole Blood 4.6 4.6 - 5.1 mg/dL LAB HEMATOLOGY METHOD 06/15/2025 6:50 AM EDT [facility] Blood Arterial blood specimen / Unknown Venipuncture / Unknown 06/15/2025 6:40 AM EDT 06/15/2025 6:48 AM EDT Phillip Clark MD LAB BLOOD ORDERABLES Final R esult [facility] [address] [place] [address] * ECG Adult - POD 1 (06/15/2025 5:20 AM EDT) EKG DIAGNOSIS CLASS Abnormal MUSE ECG Ventricular Rate 71 BPM MUSE ECG Atrial Rate 71 BPM MUSE ECG KS Interval 182 ms MUSE ECG QRSD Interval 108 ms MUSE ECG QT Interval 418 ms MUSE ECG QTC Interval 454 ms MUSE ECG P [place] 51 degrees MUSE ECG R [place] -48 degrees MUSE ECG T Wave Forsan -12 degrees MUSE ECG Diagnosis Normal sinus rhythm MUSE ECG Diagnosis Left anterior fascicular block MUSE ECG Diagnosis Abnormal ECG MUSE ECG Diagnosis MUSE ECG Diagnosis Confirmed by Bimal Brambila ([id number]) on 06/15/2025 11:38:57 AM MUSE ECG 06/15/2025 5:20 AM EDT 06/15/2025 11:38 AM EDT us Phillip Clark MD ECG ORDERABLES Final Result MUSE ECG * (ABNORMAL) Blood gas panel, arterial (06/15/2025 3:58 AM EDT) pH, Arterial 7.39 7.31 - 7.42 LAB HEMATOLOGY METHOD 06/15/2025 4:06 AM EDT [facility] pCO2, Arterial 39 32 - 45 mmHg LAB HEMATOLOGY METHOD 06/15/2025 4:06 AM EDT [facility] pO2, Arterial 79(L) >80 mmHg LAB HEMATOLOGY METHOD 06/15/2025 4:06 AM EDT [facility] SO2, Measured, Arterial 97 94 - 98 % LAB HEMATOLOGY METHOD 06/15/2025 4:06 AM EDT [facility] Base Excess, Arterial -1.2 -2.0 - 3.0 mmol/L LAB HEMATOLOGY METHOD 06/15/2025 4:06 AM EDT [facility] Bicarbonate, Calculated, Arterial 24 22 - 26 mmol/L LAB HEMATOLOGY METHOD 06/15/2025 4:06 AM EDT [facility] Hematocrit, Whole Blood 39.7(L) 40.0 - 51.0 % LAB HEMATOLOGY METHOD 06/15/2025 4:06 AM EDT [facility] Sodium, Whole Blood 134(L) 136 - 145 mmol/L LAB HEMATOLOGY METHOD 06/15/2025 4:06 AM EDT [facility] Potassium, Whole Blood 4.4 3.6 - 4.9 mmol/L LAB HEMATOLOGY METHOD 06/15/2025 4:06 AM EDT [facility] Chloride, Whole Blood 108(H) 97 - 107 mmol/L LAB HEMATOLOGY METHOD 06/15/2025 4:06 AM EDT [facility] Glucose, Whole Blood 132(H) 74 - 99 mg/dL LAB HEMATOLOGY METHOD 06/15/2025 4:06 AM EDT [facility] Ionized Calcium, Whole Blood 4.5(L) 4.6 - 5.1 mg/dL LAB HEMATOLOGY METHOD 06/15/2025 4:06 AM EDT [facility] Lactate, Arterial, Whole Blood 0.9 0.5 - 1.6 mmol/L LAB HEMATOLOGY METHOD 06/15/2025 4:06 AM EDT [facility] Blood Arterial blood specimen / Unknown Arterial Puncture / Unknown 06/15/2025 3:58 AM EDT 06/15/2025 4:06 AM EDT us Phillip Clark MD LAB BLOOD ORDERABLES Final R esult [facility] [address] [place] [address] * XR Chest 1 View (06/15/2025 2:53 [...] of NG tube. Right internal jugular approach [place] catheter and mediastinal drain in unchanged position. [...] IMG XR PROCEDURES Final Resu lt * [facility], ADDL 30 MIN, [place] [facility], ADDL 30 MIN (06/15/2025 12:21 [...] LAB HEMATOLOGY METHOD 06/15/2025 8:17 AM EDT [facility] Neutrophils % 85 % LAB HEMATOLOGY METHOD 06/15/2025 8:17 AM EDT [facility] Lymphocytes % 4 % LAB HEMATOLOGY METHOD 06/15/2025 8:17 AM EDT [facility] Monocytes % 10 % LAB HEMATOLOGY METHOD 06/15/2025 8:17 AM EDT [facility] Eosinophils % 0 % LAB HEMATOLOGY METHOD 06/15/2025 8:17 AM EDT [facility] Basophils % 0 % LAB HEMATOLOGY METHOD 06/15/2025 8:17 AM EDT [facility] Immature Granulocytes % 1 % LAB HEMATOLOGY METHOD 06/15/2025 8:17 AM EDT [facility] Immature Granulocytes Absolute 0.05 0.00 - 0.06 10*3/uL LAB HEMATOLOGY METHOD 06/15/2025 8:17 AM EDT [facility] Neutrophils Absolute 9.28(H) 1.60 - 6.10 10*3/uL LAB HEMATOLOGY METHOD 06/15/2025 8:17 AM EDT [facility] Lymphocytes Absolute 0.45(L) 1.20 - 3.90 10*3/uL LAB HEMATOLOGY METHOD 06/15/2025 8:17 AM EDT [facility] Monocytes Absolute 1.14(H) 0.30 - 0.90 10*3/uL LAB HEMATOLOGY METHOD 06/15/2025 8:17 AM EDT [facility] Basophils Absolute 0.02 0.00 - 0.10 10*3/uL LAB HEMATOLOGY METHOD 06/15/2025 8:17 AM EDT [facility] Eosinophils Absolute 0.00 0.00 - 0.50 10*3/uL LAB HEMATOLOGY METHOD 06/15/2025 8:17 AM EDT [facility] Blood Venous blood specimen / Unknown Venipuncture / Unknown 06/15/2025 12:20 AM EDT 06/15/2025 12:26 AM EDT us Phillip Clark MD LAB BLOOD ORDERABLES Final R esult [facility] [address] [place] [address] * Phosphorus (06/15/2025 12:20 AM EDT) Phosphorus, Plasma 2.6 2.5 - 4.5 mg/dL 06/15/2025 8:33 AM EDT [facility] Blood Venous blood specimen / Unknown Venipuncture / Unknown 06/15/2025 12:20 AM EDT 06/15/2025 12:26 AM EDT Phillip Clark MD LAB BLOOD ORDERABLES Final R esult Performing Organization Address [facility] Co de Phone Number [facility] [address] [place] [address] * (ABNORMAL) Magnesium (06/15/2025 12:20 AM EDT) Magnesium, Plasma 2.5(H) 1.9 - 2.4 mg/dL 06/15/2025 7:37 AM EDT [facility] Blood Venous blood specimen / Unknown Venipuncture / Unknown 06/15/2025 12:20 AM EDT 06/15/2025 12:26 AM EDT Phillip Clark MD LAB BLOOD ORDERABLES Final R esult Performing Organization Address [facility] de Phone Number [facility] [address] [place] [address] * (ABNORMAL) Basic metabolic panel (06/15/2025 12:20 AM EDT) Glucose, Plasma 140(H) 74 - 99 mg/dL 06/15/2025 7:37 AM EDT [facility] BUN, Plasma 17 8 - 23 mg/dL 06/15/2025 7:37 AM EDT [facility] Creatinine, Plasma 0.84 0.70 - 1.20 mg/dL 06/15/2025 7:37 AM EDT [facility] BUN/Creatinine Ratio 20 06/15/2025 7:37 AM EDT [facility] Sodium, Plasma 138 136 - 145 mmol/L 06/15/2025 7:37 AM EDT [facility] Potassium, Plasma 4.6 3.6 - 4.9 mmol/L 06/15/2025 7:37 AM EDT [facility] Chloride, Plasma 107 97 - 107 mmol/L 06/15/2025 7:37 AM EDT [facility] CO2, Plasma 18(L) 22 - 29 mmol/L 06/15/2025 7:37 AM EDT [facility] Anion Gap 13 6 - 16 mmol/L 06/15/2025 7:37 AM EDT [facility] Total Calcium, Plasma 8.0(L) 8.9 - 10.2 mg/dL 06/15/2025 7:37 AM EDT [facility] eGFRcr 94.4 mL/min/1.7 3m*2 06/15/2025 7:37 AM EDT [facility] Comment:Reported eGFRcr in m L/min/1.73m2 is based the CKD-EPI 2020 equation that does not use a race coefficient. Blood Venous blood specimen / Unknown Venipuncture / Unknown 06/15/2025 12:20 AM EDT 06/15/2025 12:26 AM EDT us Phillip Clark MD LAB BLOOD ORDERABLES Final R esult [facility] [address] [place] [address] * (ABNORMAL) CBC W/O Differential (06/15/2025 12:20 AM EDT) WBC Count 10.94(H) 3.70 - 10.30 10*3/uL LAB HEMATOLOGY METHOD 06/15/2025 8:32 AM EDT [facility] RBC Count 4.94 4.60 - 6.10 10*6/uL LAB HEMATOLOGY METHOD 06/15/2025 8:32 AM EDT [facility] HGB 13.6(L) 13.7 - 17.5 g/dL LAB HEMATOLOGY METHOD 06/15/2025 8:32 AM EDT [facility] HCT 41.0 40.0 - 51.0 % LAB HEMATOLOGY METHOD 06/15/2025 8:32 AM EDT [facility] Platelet Count 142(L) 155 - 369 10*3/uL LAB HEMATOLOGY METHOD 06/15/2025 8:32 AM EDT [facility] MCV 87 79 - 98 fL LAB HEMATOLOGY METHOD 06/15/2025 8:32 AM EDT [facility] MCH 27.5 26.0 - 32.0 pg LAB HEMATOLOGY METHOD 06/15/2025 8:32 AM EDT [facility] MCHC 31.8 30.7 - 35.5 g/dL LAB HEMATOLOGY METHOD 06/15/2025 8:32 AM EDT [facility] RDW 15.6(H) 11.5 - 14.5 % LAB HEMATOLOGY METHOD 06/15/2025 8:32 AM EDT [facility] MPV 11.1 8.8 - 12.5 fL LAB HEMATOLOGY METHOD 06/15/2025 8:32 AM EDT [facility] nRBC 0.0 <=0.0 per 100 WBCs LAB HEMATOLOGY METHOD 06/15/2025 8:32 AM EDT [facility] Blood Venous blood specimen / Unknown Venipuncture / Unknown 06/15/2025 12:20 AM EDT 06/15/2025 12:26 AM EDT us Phillip Clark MD LAB BLOOD ORDERABLES Final R esult Performing Organization Address City/[facility]/ZIP Co de Phone Number [facility] [address] [place] [address] * Potassium, Plasma (06/15/2025 12:20 AM EDT) Pathologist [facility] Potassium, Plasma 4.5 3.6 - 4.9 mmol/L 06/15/2025 12:51 AM EDT [facility] Blood Venous blood specimen / Unknown Venipuncture / Unknown 06/15/2025 12:20 AM EDT 06/15/2025 12:26 AM EDT Phillip Clark MD LAB BLOOD ORDERABLES Final R esult [facility] [address] [place] [address] * Hematocrit (06/15/2025 12:20 AM EDT) HCT 41.0 40.0 - 51.0 % LAB HEMATOLOGY METHOD 06/15/2025 12:36 AM EDT [facility] Blood Venous blood specimen / Unknown Venipuncture / Unknown 06/15/2025 12:20 AM EDT 06/15/2025 12:26 AM EDT Phillip Clark MD LAB BLOOD ORDERABLES Final R esult Performing Organization Address [facility] Co de Phone Number [facility] [address] [place] [address] * (ABNORMAL) Hemoglobin (06/15/2025 12:20 AM EDT) Pathologist [facility] HGB 13.6(L) 13.7 - 17.5 g/dL LAB HEMATOLOGY METHOD 06/15/2025 12:36 AM EDT [facility] Blood Venous blood specimen / Unknown Venipuncture / Unknown 06/15/2025 12:20 AM EDT 06/15/2025 12:26 AM EDT Phillip Clark MD LAB BLOOD ORDERABLES Final R esult Performing Organization Address [facility] de Phone Number [facility] [address] [place] [address] * (ABNORMAL) Blood gas, arterial (06/15/2025 12:20 AM EDT) pH, Arterial 7.37 7.31 - 7.42 LAB HEMATOLOGY METHOD 06/15/2025 12:37 AM EDT [facility] pCO2, Arterial 40 32 - 45 mmHg LAB HEMATOLOGY METHOD 06/15/2025 12:37 AM EDT [facility] pO2, Arterial 65(L) >80 mmHg LAB HEMATOLOGY METHOD 06/15/2025 12:37 AM EDT [facility] SO2, Measured, Arterial 94 94 - 98 % LAB HEMATOLOGY METHOD 06/15/2025 12:37 AM EDT [facility] Base Excess, Arterial -1.8 -2.0 - 3.0 mmol/L LAB HEMATOLOGY METHOD 06/15/2025 12:37 AM EDT [facility] Bicarbonate, Calculated, Arterial 23 22 - 26 mmol/L LAB HEMATOLOGY METHOD 06/15/2025 12:37 AM EDT [facility] Hematocrit, Whole Blood 41.1 40.0 - 51.0 % LAB HEMATOLOGY METHOD 06/15/2025 12:37 AM EDT [facility] Sodium, Whole Blood 137 136 - 145 mmol/L LAB HEMATOLOGY METHOD 06/15/2025 12:37 AM EDT [facility] Potassium, Whole Blood 4.2 3.6 - 4.9 mmol/L LAB HEMATOLOGY METHOD 06/15/2025 12:37 AM EDT [facility] Chloride, Whole Blood 110(H) 97 - 107 mmol/L LAB HEMATOLOGY METHOD 06/15/2025 12:37 AM EDT [facility] Glucose, Whole Blood 140(H) 74 - 99 mg/dL LAB HEMATOLOGY METHOD 06/15/2025 12:37 AM EDT [facility] Ionized Calcium, Whole Blood 4.5(L) 4.6 - 5.1 mg/dL LAB HEMATOLOGY METHOD 06/15/2025 12:37 AM EDT [facility] Lactate, Arterial, Whole Blood 1.8(H) 0.5 - 1.6 mmol/L LAB HEMATOLOGY METHOD 06/15/2025 12:37 AM EDT [facility] Blood Arterial blood specimen / Unknown Arterial Puncture / Unknown 06/15/2025 12:20 AM EDT 06/15/2025 12:34 AM EDT Phillip Clark MD LAB BLOOD ORDERABLES Final R esult [facility] [address] [place] [address] * (ABNORMAL) Blood gas, arterial (06/14/2025 8:04 PM EDT) pH, Arterial 7.35 7.31 - 7.42 LAB HEMATOLOGY METHOD 06/14/2025 8:19 PM EDT [facility] pCO2, Arterial 39 32 - 45 mmHg LAB HEMATOLOGY METHOD 06/14/2025 8:19 PM EDT [facility] pO2, Arterial 88 >80 mmHg LAB HEMATOLOGY METHOD 06/14/2025 8:19 PM EDT [facility] SO2, Measured, Arterial 98 94 - 98 % LAB HEMATOLOGY METHOD 06/14/2025 8:19 PM EDT [facility] Base Excess, Arterial -3.7(L) -2.0 - 3.0 mmol/L LAB HEMATOLOGY METHOD 06/14/2025 8:19 PM EDT [facility] Bicarbonate, Calculated, Arterial 22 22 - 26 mmol/L LAB HEMATOLOGY METHOD 06/14/2025 8:19 PM EDT [facility] Hematocrit, Whole Blood 44.7 40.0 - 51.0 % LAB HEMATOLOGY METHOD 06/14/2025 8:19 PM EDT [facility] Sodium, Whole Blood 138 136 - 145 mmol/L LAB HEMATOLOGY METHOD 06/14/2025 8:19 PM EDT [facility] Potassium, Whole Blood 4.5 3.6 - 4.9 mmol/L LAB HEMATOLOGY METHOD 06/14/2025 8:19 PM EDT [facility] Chloride, Whole Blood 109(H) 97 - 107 mmol/L LAB HEMATOLOGY METHOD 06/14/2025 8:19 PM EDT [facility] Glucose, Whole Blood 185(H) 74 - 99 mg/dL LAB HEMATOLOGY METHOD 06/14/2025 8:19 PM EDT [facility] Ionized Calcium, Whole Blood 4.5(L) 4.6 - 5.1 mg/dL LAB HEMATOLOGY METHOD 06/14/2025 8:19 PM EDT [facility] Lactate, Arterial, Whole Blood 3.0(H) 0.5 - 1.6 mmol/L LAB HEMATOLOGY METHOD 06/14/2025 8:19 PM EDT [facility] Blood Arterial blood specimen / Unknown Arterial Puncture / Unknown 06/14/2025 8:04 PM EDT 06/14/2025 8:14 PM EDT us Phillip Clark MD LAB BLOOD ORDERABLES Final R esult [facility] [address] [place] [address] * Potassium (06/14/2025 8:03 PM EDT) Potassium, Plasma 4.9 3.6 - 4.9 mmol/L 06/14/2025 8:33 PM EDT [facility] Blood Arterial blood specimen / Unknown Venipuncture / Unknown 06/14/2025 8:03 PM EDT 06/14/2025 8:11 PM EDT Phillip Clark MD LAB BLOOD ORDERABLES Final R esult Performing Organization Address City/[facility]/ZIP Co de Phone Number [facility] [address] [place] [address] * (ABNORMAL) Magnesium (06/14/2025 8:03 PM EDT) Magnesium, Plasma 2.7(H) 1.9 - 2.4 mg/dL 06/14/2025 8:40 PM EDT [facility] Blood Arterial blood specimen / Unknown Venipuncture / Unknown 06/14/2025 8:03 PM EDT 06/14/2025 8:11 PM EDT Phillip Clark MD LAB BLOOD ORDERABLES Final R esult Performing Organization Address City/[facility]/ZIP Co de Phone Number [facility] [address] [place] [address] * (ABNORMAL) CBC (06/14/2025 8:03 PM EDT) WBC Count 13.98(H) 3.70 - 10.30 10*3/uL LAB HEMATOLOGY METHOD 06/14/2025 8:20 PM EDT [facility] RBC Count 5.14 4.60 - 6.10 10*6/uL LAB HEMATOLOGY METHOD 06/14/2025 8:20 PM EDT [facility] HGB 14.5 13.7 - 17.5 g/dL LAB HEMATOLOGY METHOD 06/14/2025 8:20 PM EDT [facility] HCT 43.9 40.0 - 51.0 % LAB HEMATOLOGY METHOD 06/14/2025 8:20 PM EDT [facility] Platelet Count 158 155 - 369 10*3/uL LAB HEMATOLOGY METHOD 06/14/2025 8:20 PM EDT [facility] MCV 85 79 - 98 fL LAB HEMATOLOGY METHOD 06/14/2025 8:20 PM EDT [facility] MCH 28.2 26.0 - 32.0 pg LAB HEMATOLOGY METHOD 06/14/2025 8:20 PM EDT [facility] MCHC 33.0 30.7 - 35.5 g/dL LAB HEMATOLOGY METHOD 06/14/2025 8:20 PM EDT [facility] RDW 14.9(H) 11.5 - 14.5 % LAB HEMATOLOGY METHOD 06/14/2025 8:20 PM EDT [facility] MPV 10.8 8.8 - 12.5 fL LAB HEMATOLOGY METHOD 06/14/2025 8:20 PM EDT [facility] nRBC 0.0 <=0.0 per 100 WBCs LAB HEMATOLOGY METHOD 06/14/2025 8:20 PM EDT [facility] Blood Arterial blood specimen / Unknown Venipuncture / Unknown 06/14/2025 8:03 PM EDT 06/14/2025 8:11 PM EDT us Phillip Clark MD LAB BLOOD ORDERABLES Final R esult [facility] [address] [place] [address] * (ABNORMAL) Basic metabolic panel (06/14/2025 8:03 PM EDT) Glucose, Plasma 194(H) 74 - 99 mg/dL 06/14/2025 8:40 PM EDT [facility] BUN, Plasma 16 8 - 23 mg/dL 06/14/2025 8:40 PM EDT [facility] Creatinine, Plasma 0.85 0.70 - 1.20 mg/dL 06/14/2025 8:40 PM EDT [facility] BUN/Creatinine Ratio 19 06/14/2025 8:40 PM EDT [facility] Sodium, Plasma 139 136 - 145 mmol/L 06/14/2025 8:40 PM EDT [facility] Potassium, Plasma 5.0(H) 3.6 - 4.9 mmol/L 06/14/2025 8:40 PM EDT [facility] Chloride, Plasma 109(H) 97 - 107 mmol/L 06/14/2025 8:40 PM EDT [facility] CO2, Plasma 20(L) 22 - 29 mmol/L 06/14/2025 8:40 PM EDT [facility] Anion Gap 10 6 - 16 mmol/L 06/14/2025 8:40 PM EDT [facility] Total Calcium, Plasma 8.2(L) 8.9 - 10.2 mg/dL 06/14/2025 8:40 PM EDT [facility] eGFRcr 94.1 mL/min/1.7 3m*2 06/14/2025 8:40 PM EDT [facility] Comment:Reported eGFRcr in m L/min/1.73m2 is based the CKD-EPI 2020 equation that does not use a race coefficient. Blood Arterial blood specimen / Unknown Venipuncture / Unknown 06/14/2025 8:03 PM EDT 06/14/2025 8:11 PM EDT us Phillip Clark MD LAB BLOOD ORDERABLES Final R esult [facility] [address] [place] [address] * (ABNORMAL) Blood gas panel, arterial (06/14/2025 6:47 PM EDT) pH, Arterial 7.30(L) 7.31 - 7.42 LAB HEMATOLOGY METHOD 06/14/2025 6:57 PM EDT [facility] pCO2, Arterial 41 32 - 45 mmHg LAB HEMATOLOGY METHOD 06/14/2025 6:57 PM EDT [facility] pO2, Arterial 70(L) >80 mmHg LAB HEMATOLOGY METHOD 06/14/2025 6:57 PM EDT [facility] SO2, Measured, Arterial 94 94 - 98 % LAB HEMATOLOGY METHOD 06/14/2025 6:57 PM EDT [facility] Base Excess, Arterial -5.6(L) -2.0 - 3.0 mmol/L LAB HEMATOLOGY METHOD 06/14/2025 6:57 PM EDT [facility] Bicarbonate, Calculated, Arterial 21(L) 22 - 26 mmol/L LAB HEMATOLOGY METHOD 06/14/2025 6:57 PM EDT [facility] Hematocrit, Whole Blood 45.5 40.0 - 51.0 % LAB HEMATOLOGY METHOD 06/14/2025 6:57 PM EDT [facility] Sodium, Whole Blood 138 136 - 145 mmol/L LAB HEMATOLOGY METHOD 06/14/2025 6:57 PM EDT [facility] Potassium, Whole Blood 4.4 3.6 - 4.9 mmol/L LAB HEMATOLOGY METHOD 06/14/2025 6:57 PM EDT [facility] Chloride, Whole Blood 109(H) 97 - 107 mmol/L LAB HEMATOLOGY METHOD 06/14/2025 6:57 PM EDT [facility] Glucose, Whole Blood 209(H) 74 - 99 mg/dL LAB HEMATOLOGY METHOD 06/14/2025 6:57 PM EDT [facility] Ionized Calcium, Whole Blood 4.6 4.6 - 5.1 mg/dL LAB HEMATOLOGY METHOD 06/14/2025 6:57 PM EDT [facility] Lactate, Arterial, Whole Blood 3.9(H) 0.5 - 1.6 mmol/L LAB HEMATOLOGY METHOD 06/14/2025 6:57 PM EDT [facility] Blood Arterial blood specimen / Unknown Arterial Puncture / Unknown 06/14/2025 6:47 PM EDT 06/14/2025 6:56 PM EDT us Phillip Clark MD LAB BLOOD ORDERABLES Final R esult Performing Organization Address City/State/[facility] Co de Phone Number [facility] [address] [place] [address] * [place] [facility], E/M 30-74 MINUTES (06/14/2025 5:35 [...] LAB HEMATOLOGY METHOD 06/14/2025 4:12 PM EDT [facility] pCO2, Arterial 43 32 - 45 mmHg LAB HEMATOLOGY METHOD 06/14/2025 4:12 PM EDT [facility] pO2, Arterial 126 >80 mmHg LAB HEMATOLOGY METHOD 06/14/2025 4:12 PM EDT [facility] SO2, Measured, Arterial 99(H) 94 - 98 % LAB HEMATOLOGY METHOD 06/14/2025 4:12 PM EDT [facility] Base Excess, Arterial -5.8(L) -2.0 - 3.0 mmol/L LAB HEMATOLOGY METHOD 06/14/2025 4:12 PM EDT [facility] Bicarbonate, Calculated, Arterial 21(L) 22 - 26 mmol/L LAB HEMATOLOGY METHOD 06/14/2025 4:12 PM EDT [facility] Hematocrit, Whole Blood 43.9 40.0 - 51.0 % LAB HEMATOLOGY METHOD 06/14/2025 4:12 PM EDT [facility] Sodium, Whole Blood 139 136 - 145 mmol/L LAB HEMATOLOGY METHOD 06/14/2025 4:12 PM EDT [facility] Potassium, Whole Blood 3.8 3.6 - 4.9 mmol/L LAB HEMATOLOGY METHOD 06/14/2025 4:12 PM EDT [facility] Chloride, Whole Blood 109(H) 97 - 107 mmol/L LAB HEMATOLOGY METHOD 06/14/2025 4:12 PM EDT [facility] Glucose, Whole Blood 179(H) 74 - 99 mg/dL LAB HEMATOLOGY METHOD 06/14/2025 4:12 PM EDT [facility] Ionized Calcium, Whole Blood 4.6 4.6 - 5.1 mg/dL LAB HEMATOLOGY METHOD 06/14/2025 4:12 PM EDT [facility] Lactate, Arterial, Whole Blood 4.3(H) 0.5 - 1.6 mmol/L LAB HEMATOLOGY METHOD 06/14/2025 4:12 PM EDT [facility] Blood Arterial blood specimen / Unknown Arterial Puncture / Unknown 06/14/2025 3:57 PM EDT 06/14/2025 4:11 PM EDT us Phillip Clark MD LAB BLOOD ORDERABLES Final R esult [facility] [address] [place] [address] * (ABNORMAL) Blood gas panel with oximetry, mixed venous (06/14/2025 3:00 PM EDT) pH, Mixed Venous 7.28(L) 7.32 - 7.43 LAB HEMATOLOGY METHOD 06/14/2025 3:24 PM EDT [facility] pCO2, Mixed Venous 47 40 - 55 mmHg LAB HEMATOLOGY METHOD 06/14/2025 3:24 PM EDT [facility] pO2, Mixed Venous 54(H) 25 - 40 mmHg LAB HEMATOLOGY METHOD 06/14/2025 3:24 PM EDT [facility] SO2, Measured, Mixed Venous 84(H) 65 - 80 % LAB HEMATOLOGY METHOD 06/14/2025 3:24 PM EDT [facility] Bicarbonate, Calculated, Mixed Venous 22 22 - 26 mmol/L LAB HEMATOLOGY METHOD 06/14/2025 3:24 PM EDT [facility] Base Excess, Mixed Venous -4.7(L) -2.0 - 3.0 mmol/L LAB HEMATOLOGY METHOD 06/14/2025 3:24 PM EDT [facility] Hematocrit, Whole Blood 43.0 40.0 - 51.0 % LAB HEMATOLOGY METHOD 06/14/2025 3:24 PM EDT [facility] Sodium, Whole Blood 139 136 - 145 mmol/L LAB HEMATOLOGY METHOD 06/14/2025 3:24 PM EDT [facility] Potassium, Whole Blood 3.7 3.6 - 4.9 mmol/L LAB HEMATOLOGY METHOD 06/14/2025 3:24 PM EDT [facility] Chloride, Whole Blood 110(H) 97 - 107 mmol/L LAB HEMATOLOGY METHOD 06/14/2025 3:24 PM EDT [facility] Ionized Calcium, Whole Blood 4.6 4.6 - 5.1 mg/dL LAB HEMATOLOGY METHOD 06/14/2025 3:24 PM EDT [facility] Glucose, Whole Blood 149(H) 74 - 99 mg/dL LAB HEMATOLOGY METHOD 06/14/2025 3:24 PM EDT [facility] Oxyhemoglobin, Mixed Venous, Whole Blood 81.9(H) 40.0 - 70.0 % LAB HEMATOLOGY METHOD 06/14/2025 3:24 PM EDT [facility] Hemoglobin Reduced, Mixed Venous, Whole Blood 16.1 % LAB HEMATOLOGY METHOD 06/14/2025 3:24 PM EDT [facility] Total Hemoglobin, Mixed Venous, Whole Blood 14.0 13.7 - 17.5 g/dL LAB HEMATOLOGY METHOD 06/14/2025 3:24 PM EDT [facility] Blood Mixed venous blood specimen / Unknown Venipuncture / Unknown 06/14/2025 3:00 PM EDT 06/14/2025 3:23 PM EDT us Phillip Clark MD LAB BLOOD ORDERABLES Final R esult [facility] [address] [place] [address] * XR Abdomen 1 View (06/14/2025 2:57 [...] Detected Not Detected 06/15/2025 12:46 PM EDT [facility] Swab (Axilla and Groin) Non-blood Collection / Unknown 06/14/2025 2:37 PM EDT 06/14/2025 3:10 PM EDT Narrative [facility] - 06/15/2025 12:46 PM EDT This PCR assay was developed and its performance characteristics determined by [facility] as appropriate for clinical purposes. This assay has not been cleared or approved by the FDA, but is performed in a CLIA regulated laboratory that is qualified to perform high-complexity testing. Phillip Clark MD LAB MICROBIOLOGY - GENERAL O RDERABLES Final Result Performing Organization Address [facility] Co de Phone Number [facility] [address] [place] [address] * Multi Drug Resistance Test (06/14/2025 2:37 PM EDT) Culture No growth at day 1 06/15/2025 4:03 PM EDT [facility] Swab (Nares and Smita Rectal) Non-blood Collection / Unknown 06/14/2025 2:37 PM EDT 06/14/2025 3:10 PM EDT Narrative [facility] - 06/15/2025 4:03 PM EDT This test was developed and its performance characteristics determined by the [facility]. Although the media is FDA-approved, it is not FDA-approved for all specimen types submitted. The FDA has determined that such clearance or approval is not necessary. This test is used for surveillance purposes. It should not be regarded as investigational or for research. The [facility] is certified under the Clinical Laboratory Improvement Amendments of 1988 (CLIA-88) as qualified to perform high complexity clinical laboratory testing. us Phillip Clark MD LAB MICROBIOLOGY - GENERAL O RDERABLES Final Result Performing Organization Address [facility] Co de Phone Number [facility] [address] [place] [address] * (ABNORMAL) Blood gas, arterial (06/14/2025 2:37 PM EDT) pH, Arterial 7.31 7.31 - 7.42 LAB HEMATOLOGY METHOD 06/14/2025 2:58 PM EDT [facility] pCO2, Arterial 42 32 - 45 mmHg LAB HEMATOLOGY METHOD 06/14/2025 2:58 PM EDT [facility] pO2, Arterial 154 >80 mmHg LAB HEMATOLOGY METHOD 06/14/2025 2:58 PM EDT [facility] SO2, Measured, Arterial 100(H) 94 - 98 % LAB HEMATOLOGY METHOD 06/14/2025 2:58 PM EDT [facility] Base Excess, Arterial -5.1(L) -2.0 - 3.0 mmol/L LAB HEMATOLOGY METHOD 06/14/2025 2:58 PM EDT [facility] Bicarbonate, Calculated, Arterial 21(L) 22 - 26 mmol/L LAB HEMATOLOGY METHOD 06/14/2025 2:58 PM EDT [facility] Hematocrit, Whole Blood 43.5 40.0 - 51.0 % LAB HEMATOLOGY METHOD 06/14/2025 2:58 PM EDT [facility] Sodium, Whole Blood 139 136 - 145 mmol/L LAB HEMATOLOGY METHOD 06/14/2025 2:58 PM EDT [facility] Potassium, Whole Blood 3.6 3.6 - 4.9 mmol/L LAB HEMATOLOGY METHOD 06/14/2025 2:58 PM EDT [facility] Chloride, Whole Blood 110(H) 97 - 107 mmol/L LAB HEMATOLOGY METHOD 06/14/2025 2:58 PM EDT [facility] Glucose, Whole Blood 131(H) 74 - 99 mg/dL LAB HEMATOLOGY METHOD 06/14/2025 2:58 PM EDT [facility] Ionized Calcium, Whole Blood 4.7 4.6 - 5.1 mg/dL LAB HEMATOLOGY METHOD 06/14/2025 2:58 PM EDT [facility] Lactate, Arterial, Whole Blood 5.0(H) 0.5 - 1.6 mmol/L LAB HEMATOLOGY METHOD 06/14/2025 2:58 PM EDT [facility] Blood Arterial blood specimen / Unknown Arterial Puncture / Unknown 06/14/2025 2:37 PM EDT 06/14/2025 2:57 PM EDT us Phillip Clark MD LAB BLOOD ORDERABLES Final R esult [facility] [address] [place] [address] * ECG Adult - Upon Admissoin to CVICU (06/14/2025 2:36 PM EDT) EKG DIAGNOSIS CLASS Abnormal MUSE ECG Ventricular Rate 61 BPM MUSE ECG Atrial Rate 61 BPM MUSE ECG KS Interval 176 ms MUSE ECG QRSD Interval 154 ms MUSE ECG QT Interval 520 ms MUSE ECG QTC Interval 523 ms MUSE ECG P Forsan 58 degrees MUSE ECG R Forsan 113 degrees MUSE ECG T Wave Forsan -67 degrees MUSE ECG Diagnosis Sinus rhythm with occasional ventricular-paced complexes MUSE ECG Diagnosis Suspect unspecified pacemaker failure MUSE ECG Diagnosis Nonspecific intraventricular block MUSE ECG Diagnosis Minimal voltage criteria for LVH, may be normal variant ( Alek product ) MUSE ECG Diagnosis Abnormal ECG MUSE ECG Diagnosis MUSE ECG Diagnosis Confirmed by Brenton Mejia ([id number]) on 06/14/2025 3:39:18 PM MUSE ECG 06/14/2025 2:36 PM EDT 06/14/2025 3:39 PM EDT us Phillip Clark MD ECG ORDERABLES Final Result Performing Organization Address City/[facility]/ZIP Co de Phone Number MUSE ECG * Potassium, Plasma (06/14/2025 2:36 PM EDT) [facility] Potassium, Plasma 3.8 3.6 - 4.9 mmol/L 06/14/2025 4:13 PM EDT [facility] Comment:Hemolyzed, result ma y be falsely increased. Blood Venous blood specimen / Unknown Venipuncture / Unknown 06/14/2025 2:36 PM EDT 06/14/2025 3:20 PM EDT us Phillip Clark MD LAB BLOOD ORDERABLES Final R esult [facility] [address] [place] [address] * Hematocrit (06/14/2025 2:36 PM EDT) [facility] HCT 42.6 40.0 - 51.0 % LAB HEMATOLOGY METHOD 06/14/2025 4:38 PM EDT [facility] Blood Venous blood specimen / Unknown Venipuncture / Unknown 06/14/2025 2:36 PM EDT 06/14/2025 4:17 PM EDT Phillip Clark MD LAB BLOOD ORDERABLES Final R esult Performing Organization Address [facility] [facility]/ZIP Co de Phone Number [facility] [address] [place] [address] * Hemoglobin (06/14/2025 2:36 PM EDT) HGB 13.9 13.7 - 17.5 g/dL LAB HEMATOLOGY METHOD 06/14/2025 4:38 PM EDT [facility] Blood Venous blood specimen / Unknown Venipuncture / Unknown 06/14/2025 2:36 PM EDT 06/14/2025 4:17 PM EDT Phillip Clark MD LAB BLOOD ORDERABLES Final R esult Performing Organization Address [facility] Co de Phone Number [facility] [address] [place] [address] * APTT (06/14/2025 2:36 PM EDT) aPTT 29 25 - 35 sec LAB COAGULATION METHOD 06/14/2025 4:11 PM EDT [facility] Blood Venous blood specimen / Unknown Venipuncture / Unknown 06/14/2025 2:36 PM EDT 06/14/2025 3:18 PM EDT Phillip Clark MD LAB BLOOD ORDERABLES Final R esult Performing Organization Address City/[facility] Co de Phone Number [facility] [address] [place] [address] * (ABNORMAL) Protime-INR (06/14/2025 2:36 PM EDT) Prothrombin Time 16.6(H) 12.0 - 14.3 sec LAB COAGULATION METHOD 06/14/2025 4:11 PM EDT [facility] INR 1.3(H) 0.9 - 1.1 LAB COAGULATION METHOD 06/14/2025 4:11 PM EDT [facility] Blood Venous blood specimen / Unknown Venipuncture / Unknown 06/14/2025 2:36 PM EDT 06/14/2025 3:18 PM EDT Narrative [facility] - 06/14/2025 4:11 PM EDT [...] Clark MD LAB BLOOD ORDERABLES Final R Evostorult Performing Organization Address City/[facility]/ZIP Co de Phone Number [facility] [address] [place] [address] * (ABNORMAL) Phosphorus (06/14/2025 2:36 PM EDT) Phosphorus, Plasma 2.3(L) 2.5 - 4.5 mg/dL 06/14/2025 4:13 PM EDT [facility] Blood Venous blood specimen / Unknown Venipuncture / Unknown 06/14/2025 2:36 PM EDT 06/14/2025 3:20 PM EDT Phillip Clark MD LAB BLOOD ORDERABLES Final R esult [facility] [address] [place] [address] * (ABNORMAL) Magnesium (06/14/2025 2:36 PM EDT) Magnesium, Plasma 3.2(H) 1.9 - 2.4 mg/dL 06/14/2025 6:55 PM EDT [facility] Blood Venous blood specimen / Unknown Venipuncture / Unknown 06/14/2025 2:36 PM EDT 06/14/2025 3:20 PM EDT us Phillip Clark MD LAB BLOOD ORDERABLES Final R esult [facility] [address] [place] [address] * (ABNORMAL) Basic metabolic panel (06/14/2025 2:36 PM EDT) Glucose, Plasma 134(H) 74 - 99 mg/dL 06/14/2025 4:13 PM EDT [facility] BUN, Plasma 14 8 - 23 mg/dL 06/14/2025 4:13 PM EDT [facility] Creatinine, Plasma 0.83 0.70 - 1.20 mg/dL 06/14/2025 4:13 PM EDT [facility] BUN/Creatinine Ratio 17 06/14/2025 4:13 PM EDT [facility] Sodium, Plasma 140 136 - 145 mmol/L 06/14/2025 4:13 PM EDT [facility] Potassium, Plasma 3.8 3.6 - 4.9 mmol/L 06/14/2025 4:13 PM EDT [facility] Comment:Hemolyzed, result ma y be falsely increased. Chloride, Plasma 108(H) 97 - 107 mmol/L 06/14/2025 4:13 PM EDT [facility] CO2, Plasma 19(L) 22 - 29 mmol/L 06/14/2025 4:13 PM EDT [facility] Anion Gap 13 6 - 16 mmol/L 06/14/2025 4:13 PM EDT [facility] Total Calcium, Plasma 8.3(L) 8.9 - 10.2 mg/dL 06/14/2025 4:13 PM EDT [facility] eGFRcr 94.7 mL/min/1.7 3m*2 06/14/2025 4:13 PM EDT [facility] Comment:Reported eGFRcr in m L/min/1.73m2 is based the CKD-EPI 2020 equation that does not use a race coefficient. Blood Venous blood specimen / Unknown Venipuncture / Unknown 06/14/2025 2:36 PM EDT 06/14/2025 3:20 PM EDT us Phillip Clark MD LAB BLOOD ORDERABLES Final R esult [facility] [address] [place] [address] * (ABNORMAL) CBC (06/14/2025 2:36 PM EDT) WBC Count 15.83(H) 3.70 - 10.30 10*3/uL LAB HEMATOLOGY METHOD 06/14/2025 4:38 PM EDT [facility] RBC Count 4.98 4.60 - 6.10 10*6/uL LAB HEMATOLOGY METHOD 06/14/2025 4:38 PM EDT [facility] HGB 13.9 13.7 - 17.5 g/dL LAB HEMATOLOGY METHOD 06/14/2025 4:38 PM EDT [facility] HCT 42.6 40.0 - 51.0 % LAB HEMATOLOGY METHOD 06/14/2025 4:38 PM EDT [facility] Platelet Count 160 155 - 369 10*3/uL LAB HEMATOLOGY METHOD 06/14/2025 4:38 PM EDT [facility] MCV 86 79 - 98 fL LAB HEMATOLOGY METHOD 06/14/2025 4:38 PM EDT [facility] MCH 27.9 26.0 - 32.0 pg LAB HEMATOLOGY METHOD 06/14/2025 4:38 PM EDT [facility] MCHC 32.6 30.7 - 35.5 g/dL LAB HEMATOLOGY METHOD 06/14/2025 4:38 PM EDT [facility] RDW 15.2(H) 11.5 - 14.5 % LAB HEMATOLOGY METHOD 06/14/2025 4:38 PM EDT [facility] MPV 10.3 8.8 - 12.5 fL LAB HEMATOLOGY METHOD 06/14/2025 4:38 PM EDT [facility] nRBC 0.0 <=0.0 per 100 WBCs LAB HEMATOLOGY METHOD 06/14/2025 4:38 PM EDT [facility] Blood Venous blood specimen / Unknown Venipuncture / Unknown 06/14/2025 2:36 PM EDT 06/14/2025 4:17 PM EDT us Phillip Clark MD LAB BLOOD ORDERABLES Final R esult [facility] [address] [place] [address] * (ABNORMAL) POCT arterial blood gas gem (06/14/2025 2:00 PM EDT) pH, Arterial 7.35 7.31 - 7.42 06/14/2025 2:02 PM EDT [facility] pCO2, Arterial 38 32 - 45 mm Hg 06/14/2025 2:02 PM EDT [facility] pO2, Arterial 376 >80 mm Hg 06/14/2025 2:02 PM EDT [facility] SO2, Arterial 100(H) 94 - 98 % 06/14/2025 2:02 PM EDT [facility] Base Excess, Arterial -4.2(L) -2 - 3 mmol/L 06/14/2025 2:02 PM EDT [facility] HCO3, Arterial 21.0(L) 22 - 26 mmol/L 06/14/2025 2:02 PM EDT [facility] Total Hemoglobin, Arterial, Whole Blood 14.5 13.7 - 17.5 g/dL 06/14/2025 2:02 PM EDT [facility] Hematocrit, Arterial 44.0 40 - 51.0 % 06/14/2025 2:02 PM EDT [facility] Sodium, Arterial 136 136 - 145 mmol/L 06/14/2025 2:02 PM EDT [facility] Potassium, Arterial 3.4(L) 3.6 - 4.9 mmol/L 06/14/2025 2:02 PM EDT [facility] Chloride, Whole Blood 105 97 - 107 mmol/L 06/14/2025 2:02 PM EDT [facility] Glucose, Arterial 138(H) 74 - 99 mg/dL 06/14/2025 2:02 PM EDT [facility] Ionized Calcium, Arterial 4.9 4.6 - 5.1 mg/dL 06/14/2025 2:02 PM EDT [facility] Lactate, Arterial 4.2(H) 0.5 - 1.6 mmol/L 06/14/2025 2:02 PM EDT [facility] Body Temperature 37.0 Celsius 06/14/2025 2:02 PM EDT [facility] pH, Temp Corrected, Arterial 7.35 7.31 - 7.42 06/14/2025 2:02 PM EDT [facility] pCO2, Temp Corrected, Arterial 38 32 - 45 mm Hg 06/14/2025 2:02 PM EDT [facility] pO2, Temp Corrected, Arterial 376 >80 mm Hg 06/14/2025 2:02 PM EDT [facility] Photographic Editor ID Ricki Zamarripa 06/14/2025 2:02 PM EDT [facility] Blood Whole blood specimen / Unknown 06/14/2025 2:00 PM EDT 06/14/2025 2:02 PM EDT us Phillip Clark MD LAB POINT OF CARE TE ST DOCKED DEVICE UNSOLICITED RESULTS Final Result Performing Organization Address City/State/[facility] Co de Phone Number [facility] [address] [place] [address] * (ABNORMAL) POCT arterial blood gas gem (06/14/2025 1:22 PM EDT) pH, Arterial 7.34 7.31 - 7.42 06/14/2025 1:23 PM EDT [facility] pCO2, Arterial 41 32 - 45 mm Hg 06/14/2025 1:23 PM EDT [facility] pO2, Arterial 518 >80 mm Hg 06/14/2025 1:23 PM EDT [facility] SO2, Arterial 100(H) 94 - 98 % 06/14/2025 1:23 PM EDT [facility] Base Excess, Arterial -3.5(L) -2 - 3 mmol/L 06/14/2025 1:23 PM EDT [facility] HCO3, Arterial 22.1 22 - 26 mmol/L 06/14/2025 1:23 PM EDT [facility] Total Hemoglobin, Arterial, Whole Blood 13.2(L) 13.7 - 17.5 g/dL 06/14/2025 1:23 PM EDT [facility] Hematocrit, Arterial 40.0 40 - 51.0 % 06/14/2025 1:23 PM EDT [facility] Sodium, Arterial 139 136 - 145 mmol/L 06/14/2025 1:23 PM EDT [facility] Potassium, Arterial 3.3(L) 3.6 - 4.9 mmol/L 06/14/2025 1:23 PM EDT [facility] Chloride, Whole Blood 104 97 - 107 mmol/L 06/14/2025 1:23 PM EDT [facility] Glucose, Arterial 137(H) 74 - 99 mg/dL 06/14/2025 1:23 PM EDT [facility] Ionized Calcium, Arterial 4.2(L) 4.6 - 5.1 mg/dL 06/14/2025 1:23 PM EDT [facility] Lactate, Arterial 3.0(H) 0.5 - 1.6 mmol/L 06/14/2025 1:23 PM EDT [facility] Body Temperature 37.0 Celsius 06/14/2025 1:23 PM EDT [facility] pH, Temp Corrected, Arterial 7.34 7.31 - 7.42 06/14/2025 1:23 PM EDT [facility] pCO2, Temp Corrected, Arterial 41 32 - 45 mm Hg 06/14/2025 1:23 PM EDT [facility] pO2, Temp Corrected, Arterial 518 >80 mm Hg 06/14/2025 1:23 PM EDT [facility] Photographic Editor ID Ricki Zamarripa 06/14/2025 1:23 PM EDT [facility] Blood Whole blood specimen / Unknown 06/14/2025 1:22 PM EDT 06/14/2025 1:23 PM EDT us Phillip Clark MD LAB POINT OF CARE TE ST DOCKED DEVICE UNSOLICITED RESULTS Final Result [facility] [address] [place] [address] * (ABNORMAL) POCT arterial blood gas gem (06/14/2025 12:52 PM EDT) pH, Arterial 7.40 7.31 - 7.42 06/14/2025 12:54 PM EDT [facility] pCO2, Arterial 35 32 - 45 mm Hg 06/14/2025 12:54 PM EDT [facility] pO2, Arterial 399 >80 mm Hg 06/14/2025 12:54 PM EDT [facility] SO2, Arterial 100(H) 94 - 98 % 06/14/2025 12:54 PM EDT [facility] Base Excess, Arterial -2.6(L) -2 - 3 mmol/L 06/14/2025 12:54 PM EDT [facility] HCO3, Arterial 21.7(L) 22 - 26 mmol/L 06/14/2025 12:54 PM EDT [facility] Total Hemoglobin, Arterial, Whole Blood 11.7(L) 13.7 - 17.5 g/dL 06/14/2025 12:54 PM T [facility] Hematocrit, Arterial 35.0(L) 40 - 51.0 % 06/14/2025 12:54 PM T [facility] Sodium, Arterial 134(L) 136 - 145 mmol/L 06/14/2025 12:54 PM T [facility] Potassium, Arterial 4.2 3.6 - 4.9 mmol/L 06/14/2025 12:54 PM T [facility] Chloride, Whole Blood 107 97 - 107 mmol/L 06/14/2025 12:54 PM T [facility] Glucose, Arterial 148(H) 74 - 99 mg/dL 06/14/2025 12:54 PM T [facility] Ionized Calcium, Arterial 4.1(L) 4.6 - 5.1 mg/dL 06/14/2025 12:54 PM T [facility] Lactate, Arterial 2.2(H) 0.5 - 1.6 mmol/L 06/14/2025 12:54 PM T [facility] Body Temperature 37.0 Celsius 06/14/2025 12:54 PM T [facility] pH, Temp Corrected, Arterial 7.40 7.31 - 7.42 06/14/2025 12:54 PM EDT [facility] pCO2, Temp Corrected, Arterial 35 32 - 45 mm Hg 06/14/2025 12:54 PM EDT [facility] pO2, Temp Corrected, Arterial 399 >80 mm Hg 06/14/2025 12:54 PM EDT [facility] Photographic Editor ID LuísJean Claude 06/14/2025 12:54 PM EDT [facility] Blood Whole blood specimen / Unknown 06/14/2025 12:52 PM EDT 06/14/2025 12:54 PM EDT Phillip Clark MD LAB POINT OF CARE TE ST DOCKED DEVICE UNSOLICITED RESULTS Final Result Performing Organization Address City/[facility] Co de Phone Number [facility] [address] [place] [address] * POCT ACT (06/14/2025 12:43 PM EDT) ACT+ (HIGH RANGE) 98 68 - 600 Seconds 06/14/2025 12:49 PM EDT [facility] Photographic Editor ID Vick Dupont 06/14/2025 12:49 PM EDT [facility] ACT Device ID [id number] 06/14/2025 12:49 PM EDT [facility] Comment 06/14/2025 12:49 PM EDT [facility] Comment: ACT performed by staff [...] UNSOLICITED RESULTS Final Result Performing Organization Address City/[facility] Co de Phone Number [facility] [address] [facility] [address] [place] [address] * (ABNORMAL) POCT arterial blood gas gem (06/14/2025 12:16 PM EDT) pH, Arterial 7.42 7.31 - 7.42 06/14/2025 12:19 PM EDT [facility] pCO2, Arterial 36 32 - 45 mm Hg 06/14/2025 12:19 PM EDT [facility] pO2, Arterial 358 >80 mm Hg 06/14/2025 12:19 PM EDT [facility] SO2, Arterial 99(H) 94 - 98 % 06/14/2025 12:19 PM EDT [facility] Base Excess, Arterial -0.8 -2 - 3 mmol/L 06/14/2025 12:19 PM EDT [facility] HCO3, Arterial 23.4 22 - 26 mmol/L 06/14/2025 12:19 PM EDT [facility] Total Hemoglobin, Arterial, Whole Blood 11.3(L) 13.7 - 17.5 g/dL 06/14/2025 12:19 PM EDT [facility] Hematocrit, Arterial 34.0(L) 40 - 51.0 % 06/14/2025 12:19 PM EDT [facility] Sodium, Arterial 134(L) 136 - 145 mmol/L 06/14/2025 12:19 PM EDT [facility] Potassium, Arterial 5.7(H) 3.6 - 4.9 mmol/L 06/14/2025 12:19 PM EDT [facility] Chloride, Whole Blood 105 97 - 107 mmol/L 06/14/2025 12:19 PM EDT [facility] Glucose, Arterial 119(H) 74 - 99 mg/dL 06/14/2025 12:19 PM EDT [facility] Ionized Calcium, Arterial 4.0(L) 4.6 - 5.1 mg/dL 06/14/2025 12:19 PM EDT [facility] Lactate, Arterial 1.6 0.5 - 1.6 mmol/L 06/14/2025 12:19 PM EDT [facility] Body Temperature 37.0 Celsius 06/14/2025 12:19 PM EDT [facility] pH, Temp Corrected, Arterial 7.42 7.31 - 7.42 06/14/2025 12:19 PM EDT [facility] pCO2, Temp Corrected, Arterial 36 32 - 45 mm Hg 06/14/2025 12:19 PM EDT [facility] pO2, Temp Corrected, Arterial 358 >80 mm Hg 06/14/2025 12:19 PM EDT [facility] Photographic Editor ID Cresencio, Vick 06/14/2025 12:19 PM EDT [facility] Blood Whole blood specimen / Unknown 06/14/2025 12:16 PM EDT 06/14/2025 12:19 PM EDT us Phillip Clark MD LAB POINT OF CARE TE ST DOCKED DEVICE UNSOLICITED RESULTS Final Result [facility] [address] [place] [address] * (ABNORMAL) POCT arterial blood gas gem (06/14/2025 12:06 PM EDT) pH, Arterial 7.39 7.31 - 7.42 06/14/2025 12:09 PM EDT [facility] pCO2, Arterial 40 32 - 45 mm Hg 06/14/2025 12:09 PM EDT [facility] pO2, Arterial 378 >80 mm Hg 06/14/2025 12:09 PM EDT [facility] SO2, Arterial 100(H) 94 - 98 % 06/14/2025 12:09 PM EDT [facility] Base Excess, Arterial -0.7 -2 - 3 mmol/L 06/14/2025 12:09 PM EDT [facility] HCO3, Arterial 24.2 22 - 26 mmol/L 06/14/2025 12:09 PM EDT [facility] Total Hemoglobin, Arterial, Whole Blood 11.5(L) 13.7 - 17.5 g/dL 06/14/2025 12:09 PM EDT [facility] Hematocrit, Arterial 35.0(L) 40 - 51.0 % 06/14/2025 12:09 PM EDT [facility] Sodium, Arterial 134(L) 136 - 145 mmol/L 06/14/2025 12:09 PM EDT [facility] Potassium, Arterial 5.0(H) 3.6 - 4.9 mmol/L 06/14/2025 12:09 PM EDT [facility] Chloride, Whole Blood 105 97 - 107 mmol/L 06/14/2025 12:09 PM EDT [facility] Glucose, Arterial 123(H) 74 - 99 mg/dL 06/14/2025 12:09 PM EDT [facility] Ionized Calcium, Arterial 4.2(L) 4.6 - 5.1 mg/dL 06/14/2025 12:09 PM EDT [facility] Lactate, Arterial 1.2 0.5 - 1.6 mmol/L 06/14/2025 12:09 PM EDT [facility] Body Temperature 37.0 Celsius 06/14/2025 12:09 PM EDT [facility] pH, Temp Corrected, Arterial 7.39 7.31 - 7.42 06/14/2025 12:09 PM EDT [facility] pCO2, Temp Corrected, Arterial 40 32 - 45 mm Hg 06/14/2025 12:09 PM EDT [facility] pO2, Temp Corrected, Arterial 378 >80 mm Hg 06/14/2025 12:09 PM EDT [facility] Photographic Editor ID Vick Dupont 06/14/2025 12:09 PM EDT [facility] Blood Whole blood specimen / Unknown 06/14/2025 12:06 PM EDT 06/14/2025 12:09 PM EDT us Phillip Clark MD LAB POINT OF CARE TE ST DOCKED DEVICE UNSOLICITED RESULTS Final Result Performing Organization Address City/State/[facility] Co de Phone Number [facility] [address] [place] [address] * (ABNORMAL) QPLUS (06/14/2025 11:55 AM EDT) [...] Seconds 06/14/2025 12:12 PM EDT [facility] Photographic Editor ID Ricki Zamarripa 06/14/2025 12:12 PM EDT [facility] Device ID [id number] 06/14/2025 12:12 PM EDT [facility] Whole Blood 06/14/2025 11:5 5 AM EDT 06/14/2025 12:12 PM EDT Narrative [facility] - 06/14/2025 12:[address]: No Clot Detected us Phillip Clark MD LAB POINT OF CARE TE ST DOCKED DEVICE UNSOLICITED RESULTS Final Result Performing Organization Address City/[facility] de Phone Number [facility] [address] [place] [address] * POCT ACT (06/14/2025 11:54 AM EDT) ACT+ (HIGH RANGE) 510 68 - 600 Seconds 06/14/2025 12:07 PM EDT [facility] Photographic Editor ID Cresencio Gene 06/14/2025 12:07 PM EDT [facility] ACT Device ID [id number] 06/14/2025 12:07 PM EDT [facility] Comment 06/14/2025 12:07 PM EDT [facility] Comment: ACT performed by staff [...] UNSOLICITED RESULTS Final Result Performing Organization Address [facility] de Phone Number [facility] [address] LAB [address] [place] [address] * (ABNORMAL) POCT arterial blood gas gem (06/14/2025 11:33 AM EDT) pH, Arterial 7.37 7.31 - 7.42 06/14/2025 11:35 AM EDT [facility] pCO2, Arterial 43 32 - 45 mm Hg 06/14/2025 11:35 AM EDT [facility] pO2, Arterial 380 >80 mm Hg 06/14/2025 11:35 AM EDT [facility] SO2, Arterial 99(H) 94 - 98 % 06/14/2025 11:35 AM [facility] Base Excess, Arterial -0.5 -2 - 3 mmol/L 06/14/2025 11:35 AM [facility] HCO3, Arterial 24.9 22 - 26 mmol/L 06/14/2025 11:35 AM [facility] Total Hemoglobin, Arterial, Whole Blood 11.5(L) 13.7 - 17.5 g/dL 06/14/2025 11:35 AM [facility] Hematocrit, Arterial 35.0(L) 40 - 51.0 % 06/14/2025 11:35 AM [facility] Sodium, Arterial 134(L) 136 - 145 mmol/L 06/14/2025 11:35 AM [facility] Potassium, Arterial 5.6(H) 3.6 - 4.9 mmol/L 06/14/2025 11:35 AM [facility] Chloride, Whole Blood 103 97 - 107 mmol/L 06/14/2025 11:35 AM [facility] Glucose, Arterial 123(H) 74 - 99 mg/dL 06/14/2025 11:35 AM [facility] Ionized Calcium, Arterial 4.2(L) 4.6 - 5.1 mg/dL 06/14/2025 11:35 AM [facility] Lactate, Arterial 1.0 0.5 - 1.6 mmol/L 06/14/2025 11:35 AM [facility] Body Temperature 37.0 Celsius 06/14/2025 11:35 AM [facility] pH, Temp Corrected, Arterial 7.37 7.31 - 7.42 06/14/2025 11:35 AM [facility] pCO2, Temp Corrected, Arterial 43 32 - 45 mm Hg 06/14/2025 11:35 AM [facility] pO2, Temp Corrected, Arterial 380 >80 mm Hg 06/14/2025 11:35 AM [facility] Photographic Editor ID Cresencio, Vick 06/14/2025 11:35 AM [facility] Blood Whole blood specimen / Unknown 06/14/2025 11:33 AM EDT 06/14/2025 11:35 AM EDT us Phillip Clark MD LAB POINT OF CARE TE ST DOCKED DEVICE UNSOLICITED RESULTS Final Result Performing Organization Address [facility] Co de Phone Number [facility] [address] [place] [address] * POCT ACT (06/14/2025 11:24 AM EDT) ACT+ (HIGH RANGE) 520 68 - 600 Seconds 06/14/2025 11:37 AM EDT [facility] Photographic Editor ID Vick Dupont 06/14/2025 11:37 AM EDT [facility] ACT Device ID [id number] 06/14/2025 11:37 AM EDT [facility] Comment 06/14/2025 11:37 AM EDT [facility] Comment: ACT performed by staff [...] 11:24 AM EDT 06/14/2025 11:37 AM EDT us Phillip Clark MD LAB POINT OF CARE TE ST DOCKED DEVICE UNSOLICITED RESULTS Final Result Performing Organization Address [facility] de Phone Number [facility]ALTH[facility]ARE [facility] [address] [place], [place] [id number] [place] [address] LAB [address] [place] [address] * (ABNORMAL) POCT arterial blood gas gem (06/14/2025 11:03 AM EDT) pH, Arterial 7.40 7.31 - 7.42 06/14/2025 11:04 AM EDT [facility] pCO2, Arterial 41 32 - 45 mm Hg 06/14/2025 11:04 AM EDT [facility] pO2, Arterial 406 >80 mm Hg 06/14/2025 11:04 AM EDT [facility] SO2, Arterial 100(H) 94 - 98 % 06/14/2025 11:04 AM EDT [facility] Base Excess, Arterial 0.5 -2 - 3 mmol/L 06/14/2025 11:04 AM EDT [facility] HCO3, Arterial 25.4 22 - 26 mmol/L 06/14/2025 11:04 AM T [facility] Total Hemoglobin, Arterial, Whole Blood 11.9(L) 13.7 - 17.5 g/dL 06/14/2025 11:04 AM T [facility] Hematocrit, Arterial 36.0(L) 40 - 51.0 % 06/14/2025 11:04 AM EDT [facility] Sodium, Arterial 133(L) 136 - 145 mmol/L 06/14/2025 11:04 AM T [facility] Potassium, Arterial 5.3(H) 3.6 - 4.9 mmol/L 06/14/2025 11:04 AM T [facility] Chloride, Whole Blood 103 97 - 107 mmol/L 06/14/2025 11:04 AM T [facility] Glucose, Arterial 121(H) 74 - 99 mg/dL 06/14/2025 11:04 AM T [facility] Ionized Calcium, Arterial 4.2(L) 4.6 - 5.1 mg/dL 06/14/2025 11:04 AM [facility] Lactate, Arterial 1.0 0.5 - 1.6 mmol/L 06/14/2025 11:04 AM T [facility] Body Temperature 37.0 Celsius 06/14/2025 11:04 AM T [facility] pH, Temp Corrected, Arterial 7.40 7.31 - 7.42 06/14/2025 11:04 AM [facility] pCO2, Temp Corrected, Arterial 41 32 - 45 mm Hg 06/14/2025 11:04 AM T [facility] pO2, Temp Corrected, Arterial 406 >80 mm Hg 06/14/2025 11:04 AM T [facility] Photographic Editor ID Cresencio, Vick 06/14/2025 11:04 AM T [facility] Blood Whole blood specimen / Unknown 06/14/2025 11:03 AM EDT 06/14/2025 11:04 AM EDT us Phillip Clark MD LAB POINT OF CARE TE ST DOCKED DEVICE UNSOLICITED RESULTS Final Result [facility] [address] [place] [address] * POCT ACT (06/14/2025 10:57 AM EDT) ACT+ (HIGH RANGE) 569 68 - 600 Seconds 06/14/2025 11:09 AM EDT [facility] Photographic Editor ID Vick Dupont 06/14/2025 11:09 AM EDT [facility] ACT Device ID [id number] 06/14/2025 11:09 AM EDT [facility] Comment 06/14/2025 11:09 AM EDT [facility] Comment: ACT performed by staff [...] 10:57 AM EDT 06/14/2025 11:09 AM EDT Phillip Clark MD LAB POINT OF CARE TE ST DOCKED DEVICE UNSOLICITED RESULTS Final Result Performing Organization Address [facility] Co de Phone Number [facility] [address] LAB [address] [place] [address] * (ABNORMAL) POCT arterial blood gas gem (06/14/2025 10:33 AM EDT) pH, Arterial 7.39 7.31 - 7.42 06/14/2025 10:34 AM EDT [facility] pCO2, Arterial 41 32 - 45 mm Hg 06/14/2025 10:34 AM EDT [facility] pO2, Arterial 349 >80 mm Hg 06/14/2025 10:34 AM EDT [facility] SO2, Arterial 99(H) 94 - 98 % 06/14/2025 10:34 AM EDT [facility] Base Excess, Arterial -0.2 -2 - 3 mmol/L 06/14/2025 10:34 AM EDT [facility] HCO3, Arterial 24.8 22 - 26 mmol/L 06/14/2025 10:34 AM EDT [facility] Total Hemoglobin, Arterial, Whole Blood 10.9(L) 13.7 - 17.5 g/dL 06/14/2025 10:34 AM EDT [facility] Hematocrit, Arterial 33.0(L) 40 - 51.0 % 06/14/2025 10:34 AM EDT [facility] Sodium, Arterial 135(L) 136 - 145 mmol/L 06/14/2025 10:34 AM EDT [facility] Potassium, Arterial 4.8 3.6 - 4.9 mmol/L 06/14/2025 10:34 AM EDT [facility] Chloride, Whole Blood 103 97 - 107 mmol/L 06/14/2025 10:34 AM EDT [facility] Glucose, Arterial 116(H) 74 - 99 mg/dL 06/14/2025 10:34 AM EDT [facility] Ionized Calcium, Arterial 4.1(L) 4.6 - 5.1 mg/dL 06/14/2025 10:34 AM EDT [facility] Lactate, Arterial 1.3 0.5 - 1.6 mmol/L 06/14/2025 10:34 AM EDT [facility] Body Temperature 37.0 Celsius 06/14/2025 10:34 AM EDT [facility] pH, Temp Corrected, Arterial 7.39 7.31 - 7.42 06/14/2025 10:34 AM EDT [facility] pCO2, Temp Corrected, Arterial 41 32 - 45 mm Hg 06/14/2025 10:34 AM EDT [facility] pO2, Temp Corrected, Arterial 349 >80 mm Hg 06/14/2025 10:34 AM EDT [facility] Photographic Editor ID Vick Dupont 06/14/2025 10:34 AM EDT [facility] Blood Whole blood specimen / Unknown 06/14/2025 10:33 AM EDT 06/14/2025 10:34 AM EDT us Phillip Clark MD LAB POINT OF CARE TE ST DOCKED DEVICE UNSOLICITED RESULTS Final Result [facility] [address] [place] [address] * (ABNORMAL) POCT ACT (06/14/2025 10:26 AM EDT) ACT+ (HIGH RANGE) >600(H) 68 - 600 Seconds 06/14/2025 10:40 AM EDT [facility] Photographic Editor ID Vick Dupont 06/14/2025 10:40 AM EDT [facility] ACT Device ID [id number] 06/14/2025 10:40 AM EDT [facility] Comment 06/14/2025 10:40 AM EDT [facility] Comment: ACT performed by staff [...] Co de Phone Number [facility] [address] [place] [address] * Surgical Pathology Exam (06/14/2025 10:18 AM EDT) Case Report Surgical Pathology Case: [id number] Authorizing Provider: Phillip Clark MD Collected: 06/14/2025 1018 Ordering Location: [facility] Received: 06/14/2025 1413 Pathologist: Beth Lake MD Specimen: Heart, aortic valve leaflets 06/15/2025 11:44 AM EDT [facility] Final Diagnosis A. AORTIC VALVE LEAFLETS, REPLACEMENT: - FIBROSIS AND MYXOID DEGENERATION. 06/15/2025 11:44 AM EDT [facility] at 1144 EDT Clinical Information Severe aortic regurgitation [I35.1] 06/15/2025 11:44 AM EDT [facility] Gross Description A. AORTIC VALVE LEAFLETS Received fresh and placed in formalin labeled aortic valve leaflets are 2 white-montez soft cardiac leaflets ranging in size from 2.5-4.0 cm in greatest dimension. Sustainability Project Coordinator sections are submitted in cassette A1. Cold Time: 3h 55m April Santos 06/15/2025 11:44 AM EDT [facility] Tissue Heart structure / Unknown 06/14/2025 10:18 AM EDT 06/14/2025 2:13 PM EDT Comment:Pre-op diagnosis: Severe aortic regurgitation [I35.1] us Phillip Clark MD LAB PATHOLOGY ORDERABLES Fin al Result [facility] [address] [place] [address] * (ABNORMAL) POCT arterial blood gas gem (06/14/2025 10:08 AM EDT) pH, Arterial 7.40 7.31 - 7.42 06/14/2025 10:17 AM EDT [facility] pCO2, Arterial 40 32 - 45 mm Hg 06/14/2025 10:17 AM EDT [facility] pO2, Arterial 410 >80 mm Hg 06/14/2025 10:17 AM EDT [facility] SO2, Arterial 100(H) 94 - 98 % 06/14/2025 10:17 AM EDT [facility] Base Excess, Arterial 0.0 -2 - 3 mmol/L 06/14/2025 10:17 AM EDT [facility] HCO3, Arterial 24.8 22 - 26 mmol/L 06/14/2025 10:17 AM EDT [facility] Total Hemoglobin, Arterial, Whole Blood 10.1(L) 13.7 - 17.5 g/dL 06/14/2025 10:17 AM EDT [facility] Hematocrit, Arterial 30.0(L) 40 - 51.0 % 06/14/2025 10:17 AM EDT [facility] Sodium, Arterial 133(L) 136 - 145 mmol/L 06/14/2025 10:17 AM EDT [facility] Potassium, Arterial 4.7 3.6 - 4.9 mmol/L 06/14/2025 10:17 AM EDT [facility] Chloride, Whole Blood 104 97 - 107 mmol/L 06/14/2025 10:17 AM EDT [facility] Glucose, Arterial 122(H) 74 - 99 mg/dL 06/14/2025 10:17 AM EDT [facility] Ionized Calcium, Arterial 3.9(L) 4.6 - 5.1 mg/dL 06/14/2025 10:17 AM EDT [facility] Lactate, Arterial 1.5 0.5 - 1.6 mmol/L 06/14/2025 10:17 AM EDT [facility] Body Temperature 37.0 Celsius 06/14/2025 10:17 AM EDT [facility] pH, Temp Corrected, Arterial 7.40 7.31 - 7.42 06/14/2025 10:17 AM EDT [facility] pCO2, Temp Corrected, Arterial 40 32 - 45 mm Hg 06/14/2025 10:17 AM EDT [facility] pO2, Temp Corrected, Arterial 410 >80 mm Hg 06/14/2025 10:17 AM EDT [facility] Photographic Editor ID Vick Dupont 06/14/2025 10:17 AM EDT [facility] Blood Whole blood specimen / Unknown 06/14/2025 10:08 AM EDT 06/14/2025 10:17 AM EDT Phillip Clark MD LAB POINT OF CARE TE ST DOCKED DEVICE UNSOLICITED RESULTS Final Result Performing Organization Address City/State/[facility] Co de Phone Number [facility] [address] [place] [address] * (ABNORMAL) POCT ACT (06/14/2025 10:04 AM EDT) ACT+ (HIGH RANGE) >600(H) 68 - 600 Seconds 06/14/2025 10:19 AM EDT [facility] Photographic Editor ID Vick Dupont 06/14/2025 10:19 AM EDT [facility] ACT Device ID [id number] 06/14/2025 10:19 AM EDT [facility] Comment 06/14/2025 10:19 AM EDT [facility] Comment: ACT performed by staff [...] UNSOLICITED RESULTS Final Result Performing Organization Address [facility] de Phone Number [facility] [address] LAB [address] [place] [address] * POCT ACT (06/14/2025 8:13 AM EDT) ACT+ (HIGH RANGE) 90 68 - 600 Seconds 06/14/2025 8:20 AM EDT [facility] Photographic Editor ID Kevin Hernandez 06/14/2025 8:20 AM EDT [facility] ACT Device ID [id number] 06/14/2025 8:20 AM EDT [facility] Comment 06/14/2025 8:20 AM EDT [facility] Comment: ACT performed by staff [...] UNSOLICITED RESULTS Final Result Performing Organization Address City/[facility] Co de Phone Number [facility] [address] LAB [address] [place] [address] * (ABNORMAL) POCT arterial blood gas gem (06/14/2025 8:13 AM EDT) pH, Arterial 7.38 7.31 - 7.42 06/14/2025 8:15 AM EDT [facility] pCO2, Arterial 40 32 - 45 mm Hg 06/14/2025 8:15 AM EDT [facility] pO2, Arterial 91 >80 mm Hg 06/14/2025 8:15 AM [facility] SO2, Arterial 99(H) 94 - 98 % 06/14/2025 8:15 AM [facility] Base Excess, Arterial -1.3 -2 - 3 mmol/L 06/14/2025 8:15 AM [facility] HCO3, Arterial 23.7 22 - 26 mmol/L 06/14/2025 8:15 AM [facility] Total Hemoglobin, Arterial, Whole Blood 14.5 13.7 - 17.5 g/dL 06/14/2025 8:15 AM [facility] Hematocrit, Arterial 44.0 40 - 51.0 % 06/14/2025 8:15 AM [facility] Sodium, Arterial 135(L) 136 - 145 mmol/L 06/14/2025 8:15 AM [facility] Potassium, Arterial 4.1 3.6 - 4.9 mmol/L 06/14/2025 8:15 AM [facility] Chloride, Whole Blood 103 97 - 107 mmol/L 06/14/2025 8:15 AM [facility] Glucose, Arterial 95 74 - 99 mg/dL 06/14/2025 8:15 AM [facility] Ionized Calcium, Arterial 4.7 4.6 - 5.1 mg/dL 06/14/2025 8:15 AM [facility] Lactate, Arterial 0.8 0.5 - 1.6 mmol/L 06/14/2025 8:15 AM [facility] Body Temperature 37.0 Celsius 06/14/2025 8:15 AM [facility] pH, Temp Corrected, Arterial 7.38 7.31 - 7.42 06/14/2025 8:15 AM [facility] pCO2, Temp Corrected, Arterial 40 32 - 45 mm Hg 06/14/2025 8:15 AM [facility] pO2, Temp Corrected, Arterial 91 >80 mm Hg 06/14/2025 8:15 AM [facility] Photographic Editor ID Lb Coreas 06/14/2025 8:15 AM [facility] Blood Whole blood specimen / Unknown 06/14/2025 8:13 AM EDT 06/14/2025 8:15 AM EDT Phillip Clark MD LAB POINT OF CARE TE ST DOCKED DEVICE UNSOLICITED RESULTS Final Result Performing Organization Address City/[facility] Co de Phone Number [facility] [address] [place] [address] * Type and Screen (06/14/2025 6:27 AM [...] ORDERABL ES Final Result Performing Organization Address [facility] Phone Number BLOOD BANK [address] [place] [address] * POCT glucose meter (06/14/2025 6:23 AM EDT) [facility] POCT Glucose 93 74 - 99 mg/dL [...] 06/14/2025 6:24 AM EDT [facility] Photographic Editor ID Kassi Sinha 06/14/2025 6:24 AM EDT [facility] Device ID [id number] 06/14/2025 6:24 AM EDT [facility] Specimen Type POC Venous 06/14/2025 6:24 AM EDT [facility] Blood Venous blood specimen / Unknown 06/14/2025 6:23 AM EDT 06/14/2025 6:24 AM EDT us Phillip Clark MD LAB POINT OF CARE TE ST DOCKED DEVICE UNSOLICITED RESULTS Final Result [facility] [address] [place] [address] documented in this encounter Visit Diagnoses Diagnosis Aortic valve regurgitation- Primary Aortic valve disorders Severe aortic regurgitation Other secondary hypertension S/P AVR BMI 30.0-30.9,adult High cholesterol Pure hypercholesterolemia Hypertension Unspecified essential hypertension CAD (coronary artery disease) Coronary atherosclerosis of unspecified type of vessel, [place] or graft History of coronary angioplasty with [...] dose, First dose (after last modification) on [facility] 06/16/25 at 0900, Routine Given 06/16/2025 8:46 AM EDT 40 mg Left Lower Abdomen enoxaparin (Lovenox) syringe 70 mg 70 mg (rounded from 65.175 mg = 0.75 mg/kg 86.9 kg), Subcutaneous, Every 12 hours, First dose on [facility] 06/16/25 at 2100, Until Discontinued, Routine Given 06/18/2025 [...] 12.5 mg, Oral, Once, 1 dose, On Fri06/15/25 at 2315, [...] times daily, 10 doses, First dose on 06/14/25 at 2100, Last dose on 06/19/25 at [...] 8 hours, 3 doses, First dose on Fri06/18/25 at 0545, Last dose on Fri06/18/25 at 2145, Routine Given 06/18/2025 9:36 PM EDT 1 tabl et Given 06/18/2025 12:36 PM EDT 1 tablet Given 06/18/2025 4:51 AM EDT 1 tablet polyethylene glycol (Miralax) packet 17 g 17 g, Oral, Daily, First dose on Fri06/16/25 at 1115, Until Discontinued, Routine Given 06/20/2025 [...] Dumas, HESHAM)1235 (Given - Provider: Brittaney Dumas, RN)1609 (Given - Provider: Brittaney Dumas, RN)2002 (Given - Provider: Lori Molina RN)2359 (Not Given - Provider: Lori Molina RN - Reason: Patient/family refused) 0300 (Given - Provider: Lori Molina RN)0847 (Given - Provider: Vicente Hussein, HESHAM)1202 (Given - Provider: Vicente Hussein, HESHAM)1513 (Given - Provider: Vicente Hussein, HESHAM)2017 (Given - Provider: Any Garcia RN) 0026 (Given - Provider: Any Garcia RN)0405 (Given - Provider: Any Garcia RN)0855 (Given - Provider: Agustina Mello, HESHAM)1200 (Canceled Entry - Provider: Automatic Discharge Provider [...] Agustina Mello, HESHAM - Reason: Patient/family refused) empagliflozin (Jardiance) tablet 10 mg 10 mg, Oral, Daily, First dose on [place] 06/16/25 at 1015, Until Discontinued, Routine 0822 (Given - Provider: Brittaney Dumas RN) 0847 (Given - Provider: Vicente Hussein, HESHAM) 0854 [...] on Fri06/16/25 at 1015, Until Discontinued, Routine 0821 (Given - Provider: Brittaney Dumas RN) 0847 (Given - Provider: Vicente Hussein, HESHAM) 0855 (Given - Provider: Agustina Mello, HESHAM) furosemide (Lasix) tablet 40 mg (COMPLETED) 40 mg, Oral, Once, 1 dose, On Fri06/18/25 at 1030, Routine 0956 (Given - Provider: Brittaney Dumas, HESHAM) Apollo powder 1 packet 1 packet, Oral, 2 times daily, First dose on Fri06/15/25 at 2100, Until Discontinued, Routine 0822 (Given - Provider: Brittaney Dumas RN)2003 (Not Given - Provider: Lori Molina RN - Reason: Patient/family refused) 912 (Given - Provider: Vicente Hussein, HESHAM)2017 (Given - Provider: Any Garcia RN) 0855 (Given - Provider: Agustina Mello, HESHAM) losartan (Cozaar) tablet 25 mg 25 mg, Oral, 2 times daily, First dose on Fri06/16/25 at 1015, Until Discontinued, Routine 0821 (Given - Provider: Brittaney Dumas RN)2003 (Given - Provider: Lori Molina RN) 0846 (Given - Provider: Vicente Hussein, HESHAM)2016 (Given - Provider: Any Garcia, HESHAM) 0854 (Given - Provider: Agustina Mello, HESHAM) melatonin tablet 9 mg 9 mg, Oral, Nightly, First dose (after last modification) on Fri06/15/25 at 0200, Until Discontinued, Routine 2002 (Given - Provider: Lori Molina, HESHAM) 2016 (Given - Provider: Any Garcia, HESHAM) methocarbamol (Robaxin) tablet 500 mg 500 mg, Oral, 3 times daily, First dose on Fri06/14/25 at 2100, Until Discontinued, Routine 0821 (Given - Provider: Brittaney Dumas, HESHAM)1608 (Given - Provider: Brittaney Dumas RN)2003 (Given - Provider: Lori Molina RN) 0848 (Given - Provider: Vicente Hussein RN)1513 (Given - Provider: Vicente Hussein RN)2017 (Given - Provider: Any Garcia, HESHAM) 0854 (Given - Provider: Agustina Mello, RN)1600 (Canceled Entry - Provider: Automatic Discharge [...] vent bigeminey)0822 (Not Given - Provider: Brittaney Dumas, HESHAM - Reason: Hold for condition: must add comment - Comment: dose given by scene shifter rn @ [address] [place], [place] [address]Daiana instructed typewriter mechanic to hold 0900 dose)2003 (Given - Provider: Lori Molina RN) 0847 (Given - Provider: Vicente Hussein RN) metoprolol [...] Discontinued, Routine 1513 (Given - Provider: Vicente Hussein RN)2016 (Given - Provider: Any Garcia, HESHAM) 0400 (Given - Provider: Any Garcia, HESHAM)0855 (Given - Provider: Agustina Mello, HESHAM)1500 (Canceled Entry - Provider: Automatic Discharge Provider - Comment: Automatically canceled at discontinue of medication order) mupirocin (Bactroban) 2 % ointment 1 Application (COMPLETED) Each Nostril, 2 times daily, 10 doses, First dose on Fri06/14/25 at 2100, Last dose on Fri06/19/25 at 0900, Routine 08 (Given - Provider: Brittaney Dumas, HESHAM)2003 (Given - Provider: Lori Molina RN) 08 (Given - Provider: Vicente Hussein, HESHAM) pantoprazole (Protonix) EC tablet 40 mg 40 mg, Oral, Daily, First dose on Fri06/15/25 at 1930, Until Discontinued, Routine 08 (Given - Provider: Brittaney Dumas, HESHAM) 0848 (Given - Provider: Vicente Hussein, HESHAM) [...] Beatris 06/16/25 at 1115, Until Discontinued, Routine 08 (Given - Provider: Brittaney Dumas, HESHAM) 0846 (Given - Provider: Vicente Hussein, HESHAM) 0855 (Given - Provider: Agustina Mello, HESHAM) potassium chloride CR (Klor-Con) ER tablet 40 mEq (COMPLETED) 40 mEq, Oral, Once, 1 dose, On 06/18/25 at 1045, Routine 0956 (Given - Provider: Brittaney Dumas, HESHAM) rosuvastatin (Crestor) tablet 40 mg 40 mg, [...] Hussein, HESHAM)2017 (Not Given - Provider: Any Garcia, HESHAM - Reason: Patient/family refused) 0855 (Not Given - Provider: Agustina Mello RN - Reason: Patient/family refused) sodium chloride 0.9 % flush 10 mL 10 mL, Intravenous, Every 12 hours, First dose on Fri06/14/25 at 2045, Until Discontinued, Routine 0822 (Given - Provider: Brittaney Dumas RN)2004 (Given - Provider: Lori Molina RN) 0837 (Given - Provider: Vicente Hussein RN)195 (Given - Provider: Any Garcia RN) 0855 (Given - Provider: Agustina Mello RN) warfarin (Coumadin) tablet 4 mg 4 mg, Oral, Daily, First dose (after last modification) on Fri06/18/25 at 1700, Until Discontinued, Routine 1758 (Given - Provider: Brittaney Dumas RN) 1655 (Given - Provider: Vicente Hussein, HESHAM) PRN Medication Order 06/18/2025 06/19/2025 06/20/2025 ondansetron [...] pain 0140 (See Alternative - Provider: Lori Molina RN)0829 (See Alternative - Provider: Brittaney Dumas RN)2004 (See Alternative - Provider: Lori Molina RN) 0431 (See Alternative - Provider: Lori Molina RN)1001 (See Alternative - Provider: Vicente Hussein RN)1703 (See Alternative - Provider: Vicente Hussein RN) 0026 (See Alternative - Provider: Any Garcia RN)0622 (See Alternative - Provider: Any Garcia RN)1150 (See Alternative - Provider: Agustina Mello, HESHAM) [...] PRN, Starting on Fri06/14/25 at 1505, Until 06/20/25 at 1627, Routine, moderate pain Or oxyCODONE [...] documented as of this encounter Care Teams Supervisor [employer] Relationship Specialty Start Date End Date Kamran Singh MD [address] [place] [address] PCP - General 02/28/25 documented as of this encounter
--- OUTSIDE RECORDS SUMMARY | 2025-06-14 07:45 | XMS_ITS | Encounter Summary ---
Author Organization [facility] Address [address] [id number] Care Team Providers Care Medical Coding Instructor Name Role Phone Kamran Singh MD Primary Care Provider [phone]- [phone] Reason for Visit * Auth/Cert (Routine) Specialty Diagnoses / Procedures Referred By Nathalia t Referred To Contact Diagnoses Severe aortic regurgitation Severe aortic regurgitation [I35.1] Procedures LA -AORT GRF W/CARD BYP F/AORTIC DISSECTION AORTIC ROOT RECONSTRUCTION Phillip Clark MD [address] [facility] [address] [place] [address] Phone: tel: fax: [facility] [address] [place] [address] Phone: tel: Referral ID Status Reason Start Date Expiration Date Visits Re quested Visits Authorized [id number] 1 1 Encounter Details Date Type Department Care Team (Late st Contact Info) Description 06/14/2025 7:45 AM EDT Anesthesia Event [facility] [address] [place] [address] Jean Claude Staley MD [address] [place] [address] Ricki Zamarripa DO [address] [place] [address] Anesthesia Record Procedure Summary Procedure Name Responsible [...] Ventricular; 06/17/25; 0815 06/14/25 1400 by Agueda Wolf RN 06/17/25 0815 by Lee Tello RN NG/OG Tube Placement Date: 06/01 12/24; Placement Time: 1409; Type: Orogastric; Size: 18 Fr; Location: Center mouth; Removal Date: 06/14/25; Removal Time: 19006/14/25 1409 by Ricki Zamarripa DO 06/14/25 1901 by Agueda Wolf RN documented in this encounter Social History [...] any time in the past 12 m [facility], were you homeless or living in a detention (including now)? No 06/15/2025 [facility] Utilities Answer Date Recorded In the past 12 months has th e [employer], gas, oil, or water company threatened to [...] supine Prep: ChloraPrep Patient monitoring: heart rate, quality assurance monitor and continuous pulse ox Anesthesia block [...] portions of the procedure(s) and immediately available [facility] the entire duration. See resident note [...] mcg/kg/min) RV: same as baseline Aortic valve: [place] valve replaced by mechanical valve. New valve [...] portions of the procedure(s) and immediately available [facility] the entire duration. See resident note [...] 05/05/25 88.7 kg (195 lb 8.8 oz) [place] Body Weight: [place] body weight: 66.1 kg (145 lb 11.6 [...] Description 07/07/2025 2:40 PM EST Office Visit [facility] Cardiothoracic [address], [address] [place] [address] Phillip Clark MD [address] [place] [address] documented as of this encounter Procedures Procedure Name Priority Date/Time Associated Diagnosis Comments PB POINT OF CARE IMAGING PLACEHOLDER Routine 06/14/2025 2:16 PM EDT PB ANESTHESIA NON-TIMED PROCEDURE PLACEHOLDER Routine 06/14/2025 2:15 PM EDT PB POINT OF CARE IMAGING PLACEHOLDER Routine 06/14/2025 8:32 AM EDT LA INSERT/PLACE FLOW DIRECT CATH Routine 06/14/2025 8:32 AM EDT ANESTHESIA ULTRASOUND GUIDED Routine 06/14/2025 8:32 AM EDT PB ANESTHESIA NON-TIMED PROCEDURE PLACEHOLDER Routine 06/14/2025 8:32 AM EDT LA AN CENTRAL LINE DOUBLE LUMEN Routine 06/14/2025 8:32 AM EDT PB ANESTHESIA PLACEHOLDER Routine 06/14/2025 8:16 AM EDT LA AN ELECTIVE ENDOTRACHEAL AIRWAY Routine 06/14/2025 8:16 [...] supine Prep: ChloraPrep Patient monitoring: heart rate, quality assurance monitor and continuous pulse ox Anesthesia block [...] of 0.25% Ropivacaine for each subcostal block. Jean Claude Staley MD ANESTHESIA ORDERABLES Final [...] mcg/kg/min) RV: same as baseline Aortic valve: [place] valve replaced by mechanical valve. New valve is well seated with appropriate movement of valve leaflets. No perivalvular leak. Mean PG of 2mm Hg and AT 55 msec. Aorta: intact after decannulation. Findings were communicated with surgeon. us Jean Claude Staley MD ANESTHESIA ORDERABLES Edited Res ult - Final * LA AN CENTRAL LINE DOUBLE LUMEN, PB ANESTHESIA NON-TIMED PROCEDURE PLACEHOLDER, ANESTHESIA ULTRASOUND GUIDED, LA INSERT/PLACE FLOW DIRECT CATH, PB POINT OF [...] MD ANESTHESIA ORDERABLES Final Resu lt * LA AN ELECTIVE ENDOTRACHEAL AIRWAY, PB ANESTHESIA PLACEHOLDER [...] PRN, Starting on Fri06/14/25 at 0925, Until 06/14/25 at 1440, Routine New Bag 06/14/2025 9:25 [...] documented as of this encounter Care Teams Medical Coding Instructor Relationship Specialty Start Date End Date Kamran Singh MD [address] [place] [address] PCP - General 02/28/25 documented as of this encounter
--- OUTSIDE RECORDS SUMMARY | 2025-06-14 07:45 | XMS_ITS | Encounter Summary ---
Author Organization [facility] Address [address] [id number] Care Team Providers Care Glass Ribbon Machine Operator Assistant Name Role Phone Kamran Singh MD Primary Care Provider [phone] Reason for Visit * Auth/Cert (Routine) Specialty Diagnoses / Procedures Referred By Nathalia t Referred To Contact Diagnoses Severe aortic regurgitation Severe aortic regurgitation [I35.1] Procedures CO -AORT GRF W/CARD BYP F/AORTIC DISSECTION AORTIC ROOT RECONSTRUCTION Phillip Clark MD [address] [address] Phone: tel: fax: [facility] [address] [place] [address] Phone: tel: Referral ID Status Reason Start Date Expiration Date Visits Re quested Visits Authorized [id number] 1 1 Encounter Details Date Type Department Care Team (Late st Contact Info) Description 06/14/2025 7:45 AM EDT - 06/14/2025 8:15 PM EDT Surgery [facility] [address] [place] [id number] Phillip Clark MD [address] [facility] [address] [place] [address] Aortic valve replacement [89580 (CPT )] Surgery Details Date/Time Status Location [...] any time in the past 12 m [facility], were you homeless or living in a senior care (including now)? No 06/15/2025 [facility] Utilities Answer Date Recorded In the past 12 months has th e [employer], gas, oil, or water Jalous[employer] threatened to shut off services in your [...] 3 days only. 3 tablet 06/20/2025 5 documented as of this [...] a referral and prefers to attend at [facility]. [place] will contact Mr. Forrest to discuss and [...] 2. Eligibility: Heart valve surgery 3. Exceptions/exclusions: [facility] Cardiac Rehab Exclusions: None 4. Referral: [facility] Cardiac Rehab Referral: Patient agreed with referral to the cardiac rehabilitation program at [facility] in [place], [place], phone number [phone]. 5. Information sent: Information Sent: Appropriate information will be sent to the receiving cardiac rehabilitation program.: * Progress Notes - Oumou Berger - 06/20/2025 10:15 AM EDT Case Management Discharge Note Bradley Forrest 69 y.o. male CSN: [id number] Admission: 06/14/2025 5:18 AM Primary Problem: Aortic valve regurgitation Primary Lens Molding Equipment Operator: Primary Caregiver: Self Assistance Available at Discharge: Current Outpatient/Agency/Support Group: DME Availability of Care Givers (#Hours): Other (comment) (As needed) Family/Lens Molding Equipment Operator(s) Willingness Assessed to care for patient at home: Yes Family/Lens Molding Equipment Operator(s) Readiness Assessed to care for patient [...] Recieved By: patient Follow-up: Jolynn Pollard APRN [facility] Cardiology [address] [place] [address] [address], JITENDRA Chavira [phone] Go on 08/22/2025 Your cardiology appointment is on August 22 at 11am Please arrive 15 minutes early and bring UPDATED medication list. [address] [facility] [phone] Go on 06/22/2025 Your first appointment for your Warfarin/Coumadin management is this FridayJune 22 at 11:30am. Please report to [facility] front admission desk and tell them you are checking in to the Pharmacy Anticoagulation Clinic. The post office clerk will call the pharmacist who will meet you in the lobby and escort you to the clinic. Please bring all medications you are taking and your insurance card. If you have any issues please call [phone] ext: [phone] and then choose option 2. Discharge Transportation: Transportation Anticipated: family or friend will provide Transportation Home at Discharge: Family/Friend will Provide Follow Up Transport: Transportation Needed to Follow up Appoinments: Family/Friend will Provide Additional Comments: SW spoke with primary team this date who indicate the pt is medically stable for DC this date and does not require further [facility]-based care. Pt to DC home with , to transport. Covering RNCM ordered rollator from [facility] to be delivered to bedside. No further SW concerns identified at this time. SW will continue to remain available and will follow up with DC planning and needs as appropriate. DIMPLE Osullivan * Progress Notes - Ather, Alicia Reza - 06/20/2025 8:32 AM EDT Antithrombosis Monitoring: [...] Plan Anticoagulation Plan Warfarin Pharmacist Managed?: No [facility] Warfarin Dosing Protocol Followed?: No Reason for Protocol Departure: CT Surgery Bridging Agent in Conjunction With Warfarin? : No INR Monitoring Frequency: Monitor INR daily Patient Education : Complete and documented Warfarin dosing and adjustment per CT surgery provider. Transitions of Care Outpatient provider managing warfarin after [facility] discharge: TBD - possibly clinic Recommended date for outpatient INR assessment: TBD - of note, enoxparin copay $0 for 7 day supply Will continue to follow patient's clinical progress daily. Libia Stevenosn PharmD, BCCP Clinical Pharmacist - Cardiothoracic Surgery Available via [employer] * Progress Notes - Phillip Clark MD [...] patient and family and agreeable Taken 06/19/2025 0345 by Lori Molina RN Plan of Care Reviewed With: patient family Goal: Patient-Specific Goal (Individualized) Outcome: Ongoing, Progressing Flowsheets (Taken 06/19/20251704 by Vicente Hussein, HESHAM) Patient/Family-Specific Goals (Include Timeframe): patient will self [...] Ongoing, Progressing Intervention: Promote Activity and Functional [place] Flowsheets (Taken 06/19/20251704 by Vicente Hussein RN) Activity Assistance Provided: assistance, stand-by Adaptive Equipment Use: use encouraged Self-Care Promotion: independence encouraged Problem: Self-Care Deficit Goal: Improved Ability to Complete Activities of Daily Living Outcome: Ongoing, Progressing Intervention: Promote Activity and Functional [place] Flowsheets (Taken 06/19/20251704 by Vicente Hussein RN) [...] Ongoing, Progressing Intervention: Promote Activity and Functional [place] Flowsheets (Taken 06/19/20251704) Activity Assistance Provided: assistance, [...] Hussein RN Outcome: Ongoing, Progressing 06/19/20251704 by Vicetne Hussein RN Outcome: Ongoing, Progressing Intervention: Optimize [...] Ongoing, Progressing Intervention: Promote Activity and Functional [place] Flowsheets (Taken 06/19/20251704) Activity Assistance Provided: assistance, [...] 06/16 pm 06/17 1.5 5mg tLov continues 10/18 2.3 4mg tLOV given 06/18 AM then discontinued 06/19 2.4 4mg Per discussion with first contact provider. Will be updated per attending provider discretion once they are out of surgery. Plan Anticoagulation Plan Warfarin Pharmacist Managed?: No [facility] Warfarin Dosing Protocol Followed?: No Reason for Protocol Departure: CT Surgery Bridging Agent in Conjunction With Warfarin? : No Goal PTT/anti-Xa: 2.5-3.5 INR Monitoring Frequency: Monitor INR daily Patient Education : Complete and documented Warfarin dosing and adjustment per CT surgery provider. Transitions of Care Outpatient provider managing warfarin after [facility] discharge: TBD - possibly [facility] Recommended date for outpatient INR assessment: TBD - of note, enoxparin copay $0 for 7 day supply Will continue to follow patient's clinical progress daily. Prashant Aguilar, PharmD PGY2 Critical Care Resident Available on [...] rhythm - continue warfarin CT surgery pager [phone] [1] acetaminophen, 650 mg, Oral, q4h DEMETRIUS [...] Airway Secretion Clearance Flowsheets Taken 06/19/2025344 by oLri Molina RN Patient Tolerance (IS): good Administration [...] Ongoing, Progressing Intervention: Promote Activity and Functional [place] Flowsheets (Taken 06/19/2025344) Activity Assistance Provided: assistance, stand-by Self-Care Promotion: independence encouraged Problem: Self-Care Deficit Goal: Improved Ability to Complete Activities of Daily Living Outcome: Ongoing, Progressing Intervention: Promote Activity and Functional [place] Flowsheets (Taken 06/19/2025344) Activity Assistance Provided: assistance, [...] regular sleep/rest pattern promoted room darkened * Gabriel Singh - Brittaney Dumas RN - 06/18/2025 6:29 PM EDT Images from the original note were not included. [id number] Tratamiento para contracciones ventriculares prematuras (CVP) Las [...] Confusi??n. Last Reviewed Date: 2024 00:00:00 ?? [id number] [employer]. All rights reserved. This information is not intended as a substitute for professional medical care. Always follow your healthcare professional's instructions. * Gabriel Singh - Brittaney Dumas RN - 06/18/2025 6:29 PM EDT Images from the original note were not included. [id number] C??mo comprender las contracciones ventriculares prematuras (CVP) [...] se??al activa partes cercanas del coraz??n contraer. Maxwell permite que el coraz??n se comprima de [...] card??acos anteriores, el coraz??n expulsar?? muypoca mushtaq. Maxwell provoca aria sensaci??n de pausa entre latidos. El siguiente latido card??aco suele ser m??s bea, ya que la pausa lo permite que el coraz??n descanse y se llene de mushtaq. Maxwell lleva a aria sensaci??n de latido card??aco [...] port??til jameson unos d??as o incluso semanas. Maxwell puede ayudar a diagnosticar los CVP que [...] im??genes del coraz??n. ? An??lisis de mushtaq. Maxwell se hace para comprobar los electrolitos y concentraciones tiroideas. Last Reviewed Date: 2024 00:00:00 ?? 7740-8497 [employer]. All rights reserved. This information is not intended as a substitute for professional medical care. Always follow your healthcare professional's instructions. * Gabriel Singh - Brittaney Dumas RN - 06/18/2025 6:29 PM EDT Images from the original note were not included. [id number] Tratamiento para contracciones ventriculares prematuras (CVP) Las [...] Confusi??n. Last Reviewed Date: 2024 00:00:00 ?? [id number] The [employer]. All rights reserved. This information is not intended as a substitute for professional medical care. Always follow your healthcare professional's instructions. * Gabriel Singh - Brittaney Dumas RN - 06/18/2025 6:29 PM EDT Images from the original note were not included. [id number] C??mo comprender las contracciones ventriculares prematuras (CVP) [...] se??al activa partes cercanas del coraz??n contraer. Maxwell permite que el coraz??n se comprima de [...] card??acos anteriores, el coraz??n expulsar?? muypoca mushtaq. Maxwell provoca aria sensaci??n de pausa entre latidos. El siguiente latido card??aco suele ser m??s bea, ya que la pausa lo permite que el coraz??n descanse y se llene de mushtaq. Maxwell lleva a aria sensaci??n de latido card??aco adicional. Por lo tanto, el coraz??n tiene un latido card??aco ?prematurado? entre latidos card??acos normales. ??Qu?? causa los CVP? La mayor??a de las veces, los CVP son inofensivos. César ciertas cosas pueden ayudar a desencadenar aria se??al prematura en los ventr??culos. Estos incluyen: ? Avance de la edad. ? Reducci??n del flujo sangu??carmen a beaevr coraz??n (seven arteriopat??a coronaria). ? Cicatrizaci??n despu??s [...] port??til jameson unos d??as o incluso semanas. Maxwell puede ayudar a diagnosticar los CVP que [...] im??genes del coraz??n. ? An??lisis de mushtaq. Maxwell se hace para comprobar los electrolitos y concentraciones tiroideas. Last Reviewed Date: 2024 00:00:00 ?? 3615-2654 [employer]. All rights reserved. This information is not intended as a substitute for professional medical care. Always follow your healthcare professional's instructions. * Gabriel WallaceTRISTAN - Brittaney Dumas RN - 06/18/2025 6:28 PM EDT Images from the original note were not included. 48451 Treatment for Premature Ventricular Contractions (PVCs) Premature [...] confusion Last Reviewed Date: 2024 00:00:00 ?? 5391-3454 [employer]. All rights reserved. This information is not intended as a substitute for professional medical care. Always follow your healthcare professional's instructions. * Jelanimassimo Samantha - Brittaney Dumas RN - 06/18/2025 6:28 PM EDT Images from the original note were not included. 36174 Understanding Premature Ventricular Contractions (PVCs) Premature ventricular [...] to 2 weeks. ? Insertable (or implantable) drawing press operator. This small device is implanted under the [...] levels. Last Reviewed Date: 2024 00:00:00 ?? 5565-9426 [employer]. All rights reserved. This information is not [...] Plan Anticoagulation Plan Warfarin Pharmacist Managed?: No [facility] Warfarin Dosing Protocol Followed?: No Bridging Agent in Conjunction With Warfarin? : Yes Ordered Agents: Enoxaparin Bridging Agent Dose: 70mg BID INR Monitoring Frequency: Monitor INR daily Patient Education : Complete and documented Warfarin dosing and adjustment per CT surgery provider. Transitions of Care Outpatient provider managing warfarin after [facility] discharge: TBD - possibly clinic Recommended [...] Ongoing, Progressing Intervention: Promote Activity and Functional [place] Flowsheets (Taken 06/18/202558) Activity Assistance Provided: assistance, 1 person Self-Care Promotion: independence encouraged Problem: Self-Care Deficit Goal: Improved Ability to Complete Activities of Daily Living Outcome: Ongoing, Progressing Intervention: Promote Activity and Functional [place] Flowsheets (Taken 06/18/202558) Activity Assistance Provided: assistance, [...] from the original note were not included. [id number] Warfarin IMPORTANT WARNING: Warfarin may cause severe [...] doctor or pharmacist will give you the creative developer's patient information sheet (Medication Guide) when you begin treatment with warfarin and each time you refill your prescription. Read the information carefully and ask your doctor or pharmacist if you have any questions. You can also visit the Food and Drug Administration (FDA) website (https://www.fda.gov/downloads/Drugs/DrugSafety/qaj537501.pdf) or the creative developer's website to obtain the Medication Guide. Talk [...] Echinacea, garlic, Ginkgo biloba, ginseng, goldenseal, and [place]'s wort; omeprazole (Prilosec); famotidine (Pepcid AC); aspirin [...] amounts of vitamin K-containing food on a ozhc-rm-utdz basis. Do not eat large amounts of [...] be awakened, immediately call emergency services at 198. Symptoms of overdose may include the following: [...] of all of the prescription and nonprescription (qjoe-npx-qmzzlav) medicines, vitamins, minerals, and dietary supplements you [...] or pharmacist about specific clinical use. The [place] [employer] represents that the information provided hereunder was formulated with a reasonable standard of care, and in conformity with professional standards in the field. The [place] [employer] makes no representations or warranties, express or implied, including, but not limited to, any implied warranty of merchantability and/or fitness for a particular purpose, with respect to such information and specifically disclaims all such warranties. Users are advised that decisions regarding drug therapy are complex medical decisions requiring the independent, informed decision of an appropriate health home care specialist, and the information is provided for informational purposes only. The entire monograph for a drug should be reviewed for a thorough understanding of the drug's actions, uses and side effects. The [place] [employer] does not endorse or recommend the use of any drug.The information is not a substitute for medical care. AHFS?? Patient Medication Information?. ?? Copyright, 2023. The [place] [employer]??, [address], [address], [place], [place]. All Rights Reserved. Duplication for commercial use must be authorized by [facility]. Selected Revisions: February 13, 2017. AHFS?? Patient Medication Information?. ?? Copyright, 2024 * [facility] - Sydni Munson RN - 06/17/2025 12:42 PM EDT Images from the original note were not included. [id number] Recovery From Heart Surgery: The First Few [...] stop Last Reviewed Date: 2024 00:00:00 ?? 7836-3632 The [employer]. All rights reserved. This information is not [...] arms away from your body. * Gabriel GonsalezALONZO - Sydni Munson RN - 06/17/2025 12:42 PM EDT Images from the original note were not included. 66201 After Heart Valve Surgery For the first [...] headache Last Reviewed Date: 2023 00:00:00 ?? 2991-3054 The [employer]. All rights reserved. This information is not intended as a substitute for professional medical care. Always follow your healthcare professional's instructions. * Discharge Instr - Other Orders - Sydni Munson RN - 06/17/2025 12:39 PM EDT Please arrive 30 minutes early for your appointment with Dr. Clark Prior to your appointment, go to the radiology department on the 1st floor of the [facility] near [place] for a chest x-ray. Then go to [...] your incisions. Do NOT lift, push, or pot puller 5 pounds for six weeks. Do [...] Sydni Munson CT Surgery Nurse Navigator at [phone] Friday through Friday 7am- 3:30pm [facility] [phone] after 3:30 pm, weekends and holidays - ask for the CT surgeon substation operator automatic. * Progress Notes - Brooke Valdez PTA - 06/17/2025 11:58 AM EDT Physical Therapy Treatment Patient Name: Bradley Forrest Today's Date: 06/17/2025 Total Treatment Time: 39 min PT Discharge Recommendations: Home with assistance Equipment Recommended: Rollator Subjective The patient states, I am doing okay. Participants in Care Family/Caregiver Present: Yes Family/Caregiver: Spouse, Other (Specify) (sister and brother) Geochemist: Not Applicable Presentation Oxygen: None (Room air) [...] sequencing. Bed Mobility Exam: Rolling/Turning Level of [place]: Minimum assist (75% patient effort) Physical/Nonphysical Assist: Verbal Cues, Set-up required Bed Mobility Exam: Scooting/Bridging Level of [place]: Minimum assist (75% patient's effort) (to scoot to edge of bed with cues to adhere to sternal precautions) Physical/Nonphysical Assist: Verbal Cues, Set-up required Bed Mobility Exam: Supine to Sit Level of [place]: Minimum assist (75% patient's effort) Physical/Nonphysical Assist: Verbal Cues, Set-up required, Additional assist utilized for safety Bed Mobility Exam: Sit to Supine Level of [place]: Minimum assist (75% patient's effort) Physical/Nonphysical Assist: Verbal Cues, Set-up required, Additional assist utilized for safety Transfers Transfer Intervention: Verbal cues provided for correct bilateral hand and foot placement during sit to stand transfers. Transfer Interventions: The patient stood at the sink for hygiene approximately 8-10 minutes with CGA of 1 person. 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 Level of [place] Adaptive Equipment Utilized Comments Feeding Grooming SBA Standing sinkside stood times 8 minutes in bathroom. Bathing Upper Body Dressing Lower Body Dressing Sock Level of Assistance: Moderate assistance, Minimal verbal cues Toileting SBA Toilet IADLs Health Management Community Re-Entry BALANCE Postural Appearance INTERVENTIONS Level of [place] Balance Support Comments Static Sit Standby assist [...] weight shifting to promote safety. Level of [place] Physical/Non-physical Assist Adaptive Equipment Utilized Rolling/ Turning [...] Plan Anticoagulation Plan Warfarin Pharmacist Managed?: No [facility] Warfarin Dosing Protocol Followed?: No Bridging Agent in Conjunction With Warfarin? : Yes Ordered Agents: Enoxaparin Bridging Agent Dose: 70mg BID INR Monitoring Frequency: Monitor INR daily Patient Education : Complete and documented Warfarin dosing and adjustment per CT surgery provider. Transitions of Care Outpatient provider managing warfarin after [facility] discharge: TBD - possibly clinic Recommended date for outpatient INR assessment: TBD - of note, enoxparin copay $0 for 7 day supply Will continue to follow patient's clinical progress daily. Maria Esther Kent PharmD, ARLEEN, BCCCP, [facility] Critical Care Pharmacist - Cardiothoracic Surgery Contact via secure chat * Gabriel Singh - Maria Esther Kent PharmD - 06/17/2025 9:21 AM EDT Images from the original note were not included. Your Health Checklist: Taking Warfarin Safely - Video Follow this checklist to properly and safely take warfarin. To view the video go to this web address: [email or web address] Or, scan this QR code with your [...] the video go to this web address: https://bit.ly/4U61dDk Or, scan this QR code with your smart phone ?? [facility] [facility] * Maria Esther Houston PharmD - 06/17/2025 9:21 AM EDT Images from the original note were not included. Warfarin: Your INR Goal - Video Understand what the INR test measures, and what your healthy INR level should be. To view the video go to this web address: https://bit.ly/6Zyr8IP Or, scan this QR code with your [...] the video go to this web address: https://bit.ly/0MH3Apd Or, scan this QR code with your smart phone ?? [facility] [facility] * Maria Esther Houston PharmTiffany - 06/17/2025 9:21 AM EDT Images from [...] Certain other vegetables and fruits, including asparagus, Melvin sprouts, and kiwifruit ? Certain soy products, such as natto (a traditional Macedonian dish of fermented soybeans) Some vegetable oils [...] reduced-fat cheese, served with a whole grain Wolof muffin ? A grilled chicken sandwich on whole grain bread with raw spinach*, tomato slices, and mustard ? Oven-roasted fish served with steamed broccoli* and medley of whole grain pasta, carrots, onions,and mushrooms * Foods higher in vitamin K Last Reviewed Date: 2025 00:00:00 ?? [id number] The [employer]. All rights reserved. This information is not [...] the video go to this web address: https://bit.ly/6F8OGkW Or, scan this QR code with your smart phone ?? [employer] * Gabriel [facility] - Maria Esther Kent, PharmTiffany - 06/17/2025 9:21 AM EDT Images from the original note were not included. [id number] Warfarin IMPORTANT WARNING: Warfarin may cause severe [...] doctor or pharmacist will give you the creative developer's patient information sheet (Medication Guide) when you begin treatment with warfarin and each time you refill your prescription. Read the information carefully and ask your doctor or pharmacist if you have any questions. You can also visit the Food and Drug Administration (FDA) website (https://www.fda.gov/downloads/Drugs/DrugSafety/suy970237.pdf) or the creative developer's website to obtain the Medication Guide. Talk [...] amounts of vitamin K-containing food on a xipa-bv-chmf basis. Do not eat large amounts of [...] be awakened, immediately call emergency services at 550. Symptoms of overdose may include the following: [...] of all of the prescription and nonprescription (ixng-vch-vtnxqqd) medicines, vitamins, minerals, and dietary supplements you [...] or pharmacist about specific clinical use. The [place] [employer] represents that the information provided hereunder was formulated with a reasonable standard of care, and in conformity with professional standards in the field. The [place] [employer] makes no representations or warranties, express or implied, including, but not limited to, any implied warranty of merchantability and/or fitness for a particular purpose, with respect to such information and specifically disclaims all such warranties. Users are advised that decisions regarding drug therapy are complex medical decisions requiring the independent, informed decision of an appropriate health home care specialist, and the information is provided for informational purposes only. The entire monograph for a drug should be reviewed for a thorough understanding of the drug's actions, uses and side effects. The [place] [employer] does not endorse or recommend the use of any drug.The information is not a substitute for medical care. AHFS?? Patient Medication Information?. ?? Copyright, 2023. The [place] [employer]??, [address], [address], [place], [place]. All Rights Reserved. Duplication for commercial use must be authorized by [facility]. Selected Revisions: February 13, 2017. AHFS?? Patient [...] Ongoing, Progressing Intervention: Promote Activity and Functional [place] Flowsheets (Taken 06/17/2025108) Activity Assistance Provided: assistance, 1 person Self-Care Promotion: independence encouraged Problem: Self-Care Deficit Goal: Improved Ability to Complete Activities of Daily Living Outcome: Ongoing, Progressing Intervention: Promote Activity and Functional [place] Flowsheets (Taken 06/17/2025108) Activity Assistance Provided: assistance, [...] Goal: Anesthesia/Sedation Recovery 06/16/2025 152 by Fariba Blanton, HESHAM Outcome: Ongoing, Progressing 06/16/2025 1526 by Franny, Fariba M, RN Outcome: Ongoing, Not Progressing Goal: Acceptable Pain Control 06/16/2025 1526 by Fariba Blanton RN Outcome: Ongoing, Progressing 06/16/2025 1526 by Fariba Blanton RN Outcome: Ongoing, Not Progressing Goal: Nausea and Vomiting Relief 06/16/2025 1526 by Fariba Blanton, RN Outcome: Ongoing, Progressing 06/16/2025 1526 by Fariba Blanton, RN Outcome: Ongoing, Not Progressing Goal: Effective Urinary Elimination 06/16/2025 1526 by Fariba Blanton, RN Outcome: Ongoing, Progressing 06/16/2025 1526 by Fariba Blanton RN Outcome: Ongoing, Not Progressing Goal: Effective Oxygenation and Ventilation 06/16/2025 152 by Fariba Blanton, HESHAM Outcome: Ongoing, Progressing 06/16/2025 1526 by Fariba Blanton, RN Outcome: Ongoing, Not Progressing Problem: Fall Injury Risk Goal: Absence of Fall and Fall-Related Injury 06/16/2025 152 by Fariba Blanton, HESHAM Outcome: Ongoing, Progressing 06/16/2025 152 by Fariba Blanton RN Outcome: Ongoing, Not Progressing Problem: Pain Acute Goal: Optimal Pain Control and Function 06/16/2025 152 by Fariba Blanton, HESHAM Outcome: Ongoing, Progressing 06/16/2025 1526 by Fariba Blanton, RN Outcome: Ongoing, Not Progressing Problem: Mobility Impairment Goal: Optimal Mobility 06/16/2025 1526 by Fariba Blanton, RN Outcome: Ongoing, Progressing 06/16/2025 1526 by Fariba Blanton, RN Outcome: Ongoing, Not Progressing Problem: Self-Care Deficit Goal: Improved Ability to Complete Activities of Daily Living 06/16/2025 1526 by Fariba Blanton, RN Outcome: Ongoing, Progressing 06/16/2025 1526 by [...] Note Bradley Forrest 69 y.o. male CSN: [id number] Admission: 06/14/2025 5:18 AM Primary Problem: Severe aortic regurgitation Anticipated Discharge Date: Additional Comments: HESHAM HAIDER reviewed chart and met with primary team to discuss plan of care. Patient is not medically ready for discharge at this time, remove chest tube and continue ICU level of care. HESHAM HAIDER will continue to follow. Sangeeta oTwnsend RN * Assessment & Plan Note - [...] insertion of stent -Monitor per protocol. - 10/16: start plavix * Assessment & Plan Note [...] BY BELLE SMITH MD - s/p AVR 10/14 - Monitor per protocol. >>ASSESSMENT AND PLAN [...] Problem(s): Weaning from mechanically assisted ventilation initiated ([facility]) (Abfqkmey65/20/2025) Arrived intubated and sedated post-op - fast [...] post median sternotomy. Interval removal of the Denver-Ganzcatheter, right IJ sheath remains in place with tip in the mid to distal SVC. No pneumothorax or pleural effusions. Ongoing interstitial edema. 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 Geochemist (if applicable) OBJECTIVE & INTERVENTIONS PAIN Pain [...] ACTIVITY Treatment Minutes 24 TRANSFERS Level of [place] Physical/Non- physical Assist Adaptive Equipment Utilized Sit to Stand Contact guard Verbal Cues, Additional assist utilized for safety, 1 person + 1 person to manage equipment (verbal cuing for sternal precautions) Stand to sit Contact guard Verbal Cues, 1 person + 1 person to manage equipment Interventions BALANCE Postural Appearance Posture: Rounded shoulders Level of [place] Balance Support Interventions Static Sit Standby assist Feet supported Dynamic Sit Contact guard Feet supported Static Stand Standby assist Right upper extremity support, Left upper extremity support Pt with mild dizziness when coming to stand from sitting which subsided with roughly 30 seconds of static standing Dynamic Stand Standby assist Right upper extremity support, Left upper extremity support AMBULATION Level of [place] Distance Adaptive Equipment Utilized Ambulation Standby assist, [...] Plan Anticoagulation Plan Warfarin Pharmacist Managed?: No [facility] Warfarin Dosing Protocol Followed?: No Reason for Protocol Departure: CT Surgery Bridging Agent in Conjunction With Warfarin? : Yes Ordered Agents: Enoxaparin Bridging Agent Dose: Enoxaparin 70mg bid to start 06/16 pm INR Monitoring Frequency: Monitor INR daily Patient Education : Incomplete Warfarin dosing and adjustment per CT surgery provider. Transitions of Care Outpatient provider managing warfarin after [facility] discharge: TBD Recommended date for outpatient INR assessment: TBD Will continue to follow patient's clinical progress daily. Sy Fernández PharmD PGY-2 Cardiology Valet Available via Secure Chat * Progress Notes [...] Manage Infection Flowsheets Taken 06/15/20251999 by Svetlana Reilly, RN Isolation Precautions: precautions maintained Taken 06/14/20252154 [...] Ongoing, Progressing Intervention: Promote Activity and Functional [place] Flowsheets Taken 06/15/20251699 by Bony Thomas RN [...] Ongoing, Progressing Intervention: Promote Activity and Functional [place] Flowsheets Taken 06/15/2025 1700 by Bony Thomas RN Activity Assistance Provided: assistance, stand-by Taken 06/14/20252154 by Svetlana Reilly, RN Self-Care Promotion: independence encouraged * Consults - Nat Singletary RD - 06/15/2025 2:23 PM EDTAssociated Order(s): IP CONSULT TO NUTRITION SERVICES Adult Nutrition Evaluation Note Bradley Forrest 69 y.o. male CSN: [id number] Room/Bed 234/234A Nutrition evaluation type: assessment Reason [...] Supplemental oxygen O2 Delivery Method: Nasal cannula [place] Coma Scale Score: 15 Keny Scale Score: 21 Shahid/Cubbin Pressure Risk Score: 38 Most Recent BM Date: ([facility]) GI Symptoms: Nausea, Vomiting Edema: Generalized Allergies: [...] 30.07 Weight Evaluation: Obese-Class 1 (BMI 30-34.9) [employer] Body Weight (kg): 67.3 Percent [employer] Body Weight: 130 Adjusted Body Weight (kg): 72.4 Estimated Needs: Kcal/ K-28 Kcal Provided: 5245-7107 Metabolic Cart Study Results: Current Nutrition Intake: Diet Order: Adult Diet Diet Texture: Clear liquid Adult Carbohydrate Restriction: Consistent CHO 2 (8842-3843 Venkat, 80 g/meal) Fat Restriction: Cardiac Percent Meals Eaten (%): establishing Diet Experience and Nutrition History: Diet Education Provided: Will monitor Pertinent home medications: Jainism needs: Nutrition Focused Physical Exam: Physical exam performed on (date): 06/15 Temples (muscles): None Clavicle (muscle): None Shoulder (muscle): None Orbital (fat): None Triceps (fat): None Energy Intake: reported adequate [facility] Weight Loss: denies Assessment of Malnutrition: Malnutrition [...] Note Bradley Forrest 69 y.o. male CSN: [id number] Admission: 06/14/2025 5:18 AM Primary Problem: Severe aortic regurgitation [employer] Pipeline Supervisor reviewed chart and spoke with the patient at bedside to complete this Initial Case Management Assessment. PCP: Kamran Singh MD Emergency Contact: Extended Emergency Contact Information Primary Emergency Contact: Naheed Forrest [address]: [address] [place] [address] [address] [address] [place] [facility] Mobile Relation: Spouse Insurance: Primary Visit Coverage Payer Plan Sponsor Code Group Number Group Name MARY HERNANDEZ [facility] [id number] Primary Visit Coverage Subscriber Subscriber ID Subscriber Name Subscriber SSN Subscriber Address [id number] Bradley Forrest [id number] [id number] Secondary Visit Coverage Payer Plan Sponsor Code Group Number Group Name MEDICARE MEDICARE A & B Secondary Visit Coverage Subscriber Subscriber ID Subscriber Name Subscriber SSN Subscriber Address [id number] Bradley Forrest [id number] [id number] Patient information: Primary Caregiver: Self Support System: Immediate family Daily Living Activities: Functional Status: Independent Living Arrangements: Spouse/Significant other Type of Residence: Private residence, Single Level [address] [place] [address] Current DME: Equipment Currently Used at Home: [...] DME Provider: n/a Living Will/Advance Directive/Power of Manager Radio /Guardian: Unable to assess: No Have you [...] prior HH/O2/HD/Abx. PCP is Kamran Singh. Has [employer] insurance and uses [facility]. Family to transport and assist as [...] Plan Anticoagulation Plan Warfarin Pharmacist Managed?: No [facility] Warfarin Dosing Protocol Followed?: No Reason for Protocol Departure: CT Surgery Bridging Agent in Conjunction With Warfarin? : No INR Monitoring Frequency: Monitor INR daily Patient Education : Incomplete Warfarin dosing and adjustment per CT surgery provider. Transitions of Care Outpatient provider managing warfarin after [facility] discharge: TBD Recommended date for outpatient INR assessment: TBD Will continue to follow patient's clinical progress daily. Sy Fernández, PharmTiffany PGY-2 Cardiology [facility]et Available via Secure Chat * Assessment & [...] Problem(s): Weaning from mechanically assisted ventilation initiated ([facility]) (Xvwajisa82/20/2025) Arrived intubated and sedated post-op - fast [...] Weaning from mechanically assisted ventilation initiated (CMS/HCC) (Guxdakii30/20/2025) Arrived intubated and sedated post-op - fast [...] 06/15/2025 Weaning from mechanically assisted ventilation initiated ([facility]) 06/14/2025 Diabetes 05/05/2025 Benign prostatic hyperplasia 05/05/2025 CAD (coronary artery disease) 04/14/2025 History of coronary angioplasty with insertion of stent 04/14/2025 Ascending aortic aneurysm ([facility]) 04/14/2025 Aortic valve regurgitation 04/14/2025 BMI [...] 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) Level of Mobility: Ambulatory- community Mobility [place]: Independent gait without device History of Falls: [...] Mobility Exam: Sit to Supine Level of [place]: Maximum assist (25% patient's effort) Physical/Nonphysical Assist: Verbal Cues, Maximal cues, Additional assist utilized for safety Transfers Transfer Exam: Sit to stand Level of [place]: Moderate assist (50% patient's effort) Physical/Nonphysical Assist: Verbal Cues, Moderate cues, Additional assist utilized for safety Assistive Device: Rollator Transfer Exam: Stand to Sit Level of [place]: Minimum assist (75% patient's effort) Physical/Nonphysical Assist: [...] Assessments Standardized Assessments Standardized Assessments: [facility] 6-Clicks Mobility Assessment [facility] 6-Clicks Mobility Assessment Difficulty patient has turning [...] with a railing?: A little [facility] 6-Clicks Mobility Assessment Total : 16 [...] 06/15/2025 Weaning from mechanically assisted ventilation initiated ([facility]) 06/14/2025 Diabetes 05/05/2025 Benign prostatic hyperplasia 05/05/2025 CAD (coronary artery disease) 04/14/2025 History of coronary angioplasty with insertion of stent 04/14/2025 Ascending aortic aneurysm ([facility]) 04/14/2025 Aortic valve regurgitation 04/14/2025 BMI [...] 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) Level of Mobility: Ambulatory- community Mobility [place]: Independent gait without device History of Falls: [...] Mobility Exam: Sit to Supine Level of [place]: Maximum assist (25% patient's effort) Physical/Nonphysical Assist: Verbal Cues, Maximal cues, Additional assist utilized for safety Transfers Transfer Exam: Sit to stand Level of [place]: Moderate assist (50% patient's effort) Physical/Nonphysical Assist: Verbal Cues, Moderate cues, Additional assist utilized for safety Assistive Device: Rollator Transfer Exam: Stand to Sit Level of [place]: Minimum assist (75% patient's effort) Physical/Nonphysical Assist: [...] continued education to improve carryover. Standardized Assessments [facility] 6-Click Daily Activities Help from Other: Don/Doff Regular Lower Body Clothings: A lot Help From Other: Bathing: A lot Help From Other: Toileting: A lot Help From Other: Don/Doff Upper Body Clothings: Little Help From Other: Grooming: Little Help From Other: Eating Meals: None [facility] 6 Click - Daily Activities Score: [...] Right 06/14/25 0832 Internal jugular 1 GCS: [place] Coma Scale Score: 15 Review of Systems [...] of NG tube. Right internal jugular approach Denver-Shira catheter and mediastinal drain in unchanged position. [...] Weaning from mechanically assisted ventilation initiated (CMS/HCC) (Enzrptur93/20/2025) Arrived intubated and sedated post-op - fast [...] for analgesia prior to leaving the OR. [facility] services were consulted for management of [...] pressure support 8/5 Edited by: Balta Washington, GARBAGE PERSON, DNP at 06/14/2025 7388 Lines/Drains/Tubes: Patient Lines/Drains/Airways Status Active Active LDAs [...] per protocol. -SBP<120 in initial post-op period -francoisvidiganesh Narvaez MD * Care Plan - Svetlana [...] Ongoing, Progressing Intervention: Promote Activity and Functional [place] Flowsheets (Taken 06/14/20252154) Activity Assistance Provided: assistance, [...] Problem(s): Weaning from mechanically assisted ventilation initiated ([facility]) (Gkeoomhg88/20/2025) Arrived intubated and sedated post-op - fast [...] for analgesia prior to leaving the OR. [facility] services were consulted for management of [...] 06/14/25 1327 Mediastinal less than 1 NG/OG Archuleta Sump Orogastric 18 Fr Center mouth 06/14/25 [...] 2 tablets by mouth every morning. Under [employer] law, monthly prescriptions (30 days) can be refilled at 25 days and three-month prescriptions (90 days) at 80 days. Please contact the insurance company with questions if refills are denied. (Patient taking differently: Take 2 tablets by mouth every 4 hours as needed. Under [employer] law, monthly prescriptions (30 days) can be [...] Saint Jose mechanical prosthesis. Date: 06/14/25 Location: [facility] Name: Bradley Forrest, : 1955, Diagnoses: Pre-op Diagnosis Severe aortic regurgitation Post-op Diagnosis Severe aortic regurgitation Coronary artery disease due to calcified coronary lesion History of coronary angioplasty with insertion of stent Left ventricular enlargement Procedure(s): Median sternotomy, aortic valve replacement using a 25 mm Saint [place] mechanical prosthesis. Attending Surgeon(s): * Phillip Clark - Primary Mathematics Lecturer(s): * Turner Pablo MD - Fellow Anesthesia: General ASA: IV Blood Administration: Blood Product Administration History None Estimated Blood Loss: 150 mL Drains: Chest Tube Mediastinal 36 Fr (Active) Function -20 cm H2O 06/14/25 1600 Chest Tube Air Leak No 06/14/25 1600 Patency Intervention Tip/tilt 06/14/25 1600 Drainage Description Dark red 06/14/25 1600 NG/OG Archuleta Sump Orogastric 18 Fr Center mouth (Active) Urethral Catheter Temperature probe 16 Fr. (Active) Implants Type Name Action Serial No. GRAFT PTCH [id number] FELT - [id number] Implanted VALVE ATRIAL 25MM ROTATABL CUF STD PTFE - [id number] - [id number] Implanted [id number] Specimen: Specimens ID Source Frozen? 1 Heart [...] stenting of his coronaries. In addition his leach tank tender, Jd Duvall, had done an echocardiogram which [...] was induced, monitoring lines were placed, a Denver-Shira catheter was floated into position and a [...] Prolene and a tack seal. One 36 Kisw[place]ili chest tube was placed. Chest tubes and pacing wires were secured to the anterior abdominal wall. The sternum was reapproximated with #7 [id number] stainless steel wires, the fasciawas closed with [...] 2 tablets by mouth every morning. Under [employer] law, monthly prescriptions (30 days) can be refilled at 25 days and three-month prescriptions (90 days) at 80 days. Please contact the insurance company with questions if refills are denied. Patient taking differently: Take 2 tablets by mouth every 4 hours as needed. Under [employer] law, monthly prescriptions (30 days) can be [...] [facility] [address], [address] [place] [address] Phillip Clark MD [address] [place] [address] Pending Results Name Type Priority [...] PANEL, PLASMA Routine 06/16/2025 5:35 PM EDT CO CRITICAL CARE, E/M 30-74 MINUTES Routine 06/16/2025 [...] PEP THERAPY Routine 06/15/2025 12:00 PM EDT CO CRITICAL CARE, E/M 30-74 MINUTES Routine 06/15/2025 [...] 1 VIEW Routine 06/15/2025 2:53 AM EDT CO CRITICAL CARE, ADDL 30 MIN Routine 06/15/2025 12:21 AM EDT Other secondary hypertension CO CRITICAL CARE, ADDL 30 MIN Routine 06/15/2025 [...] PANEL, ARTERIAL Routine 06/14/2025 6:47 PM EDT CO CRITICAL CARE, E/M 30-74 MINUTES Routine 06/14/2025 [...] UNSOLICITED RESULTS Routine 06/14/2025 8:13 AM EDT CO -AORT GRF W/CARD BYP F/AORTIC DISSECTION 06/14/2025 [...] - 99 mg/dL 06/20/2025 2:47 AM EDT [facility] BUN, Plasma 22 8 - 23 mg/dL 06/20/2025 2:47 AM EDT [facility] Creatinine, Plasma 0.85 0.70 - 1.20 mg/dL 06/20/2025 2:47 AM EDT [facility] BUN/Creatinine Ratio 26 06/20/2025 2:47 AM EDT [facility] Sodium, Plasma 131(L) 136 - 145 mmol/L 06/20/2025 2:47 AM EDT [facility] Potassium, Plasma 4.0 3.6 - 4.9 mmol/L 06/20/2025 2:47 AM EDT [facility] Chloride, Plasma 102 97 - 107 mmol/L 06/20/2025 2:47 AM EDT [facility] CO2, Plasma 24 22 - 29 mmol/L 06/20/2025 2:47 AM EDT [facility] Anion Gap 5(L) 6 - 16 mmol/L 06/20/2025 2:47 AM EDT [facility] Total Calcium, Plasma 7.9(L) 8.9 - 10.2 mg/dL 06/20/2025 2:47 AM EDT [facility] eGFRcr 94.1 mL/min/1.7 3m*2 06/20/2025 2:47 AM EDT [facility] Comment:Reported eGFRcr in m L/min/1.73m2 is based the CKD-EPI 2020 equation that does not use a race coefficient. Blood Venous blood specimen / Unknown Venipuncture / Unknown 06/20/2025 1:52 AM EDT 06/20/2025 1:59 AM EDT Phillip Clark MD LAB BLOOD ORDERABLES Final R esult [facility] [address] [place] [address] * Phosphorus (06/20/2025 1:52 AM EDT) Phosphorus, Plasma 2.8 2.5 - 4.5 mg/dL 06/20/2025 2:23 AM EDT [facility] Blood Venous blood specimen / Unknown Venipuncture / Unknown 06/20/2025 1:52 AM EDT 06/20/2025 1:59 AM EDT Phillip Clark MD LAB BLOOD ORDERABLES Final R esult Performing Organization Address [facility]/ZIP Co de Phone Number [facility] [address] [place] [address] * (ABNORMAL) Protime-INR (06/20/2025 1:52 AM EDT) Prothrombin Time 30.4(H) 12.0 - 14.3 sec LAB COAGULATION METHOD 06/20/2025 2:29 AM EDT [facility] INR 2.9(H) 0.9 - 1.1 LAB COAGULATION METHOD 06/20/2025 2:29 AM EDT [facility] Blood Venous blood specimen / Unknown Venipuncture / Unknown 06/20/2025 1:52 AM EDT 06/20/2025 1:59 AM EDT Narrative [facility] - 06/20/2025 2:29 AM EDT OPTIMAL INR RANGES FOR PATIENT ON ORAL ANTICOAGULANT THERAPY Prevention of venous thromboembolism INR 2.0 to 3.0 In patients with heart disease: Atrial fibrillation INR 2.0 to 3.0 Valvular heart disease INR 2.0 to 3.0 Tissue heart valves INR 2.0 to 3.0 Mechanical prosthetic valves INR 2.5 to 3.5 Prevention of recurrent [place] INR 2.5 to 3.5 us Phillip Clark MD LAB BLOOD ORDERABLES Final R esult Performing Organization Address [facility] Co de Phone Number [facility] [address] [place] [address] * Magnesium (06/20/2025 1:52 AM EDT) Pathologist [facility] Magnesium, Plasma 2.2 1.9 - 2.4 mg/dL 06/20/2025 2:23 AM EDT [facility] Blood Venous blood specimen / Unknown Venipuncture / Unknown 06/20/2025 1:52 AM EDT 06/20/2025 1:59 AM EDT Phillip Clark MD LAB BLOOD ORDERABLES Final R esult Performing Organization Address City/[facility]/ZIP Co de Phone Number [facility] [address] [place] [address] * (ABNORMAL) CBC (06/20/2025 1:52 AM EDT) WBC Count 6.95 3.70 - 10.30 10*3/uL LAB HEMATOLOGY METHOD 06/20/2025 2:07 AM EDT [facility] RBC Count 3.73(L) 4.60 - 6.10 10*6/uL LAB HEMATOLOGY METHOD 06/20/2025 2:07 AM EDT [facility] HGB 10.4(L) 13.7 - 17.5 g/dL LAB HEMATOLOGY METHOD 06/20/2025 2:07 AM EDT [facility] HCT 31.9(L) 40.0 - 51.0 % LAB HEMATOLOGY METHOD 06/20/2025 2:07 AM EDT [facility] Platelet Count 187 155 - 369 10*3/uL LAB HEMATOLOGY METHOD 06/20/2025 2:07 AM EDT [facility] MCV 86 79 - 98 fL LAB HEMATOLOGY METHOD 06/20/2025 2:07 AM EDT [facility] MCH 27.9 26.0 - 32.0 pg LAB HEMATOLOGY METHOD 06/20/2025 2:07 AM EDT [facility] MCHC 32.6 30.7 - 35.5 g/dL LAB HEMATOLOGY METHOD 06/20/2025 2:07 AM EDT [facility] RDW 14.8(H) 11.5 - 14.5 % LAB HEMATOLOGY METHOD 06/20/2025 2:07 AM EDT [facility] MPV 10.2 8.8 - 12.5 fL LAB HEMATOLOGY METHOD 06/20/2025 2:07 AM EDT [facility] nRBC 0.0 <=0.0 per 100 WBCs LAB HEMATOLOGY METHOD 06/20/2025 2:07 AM EDT [facility] Blood Venous blood specimen / Unknown Venipuncture / Unknown 06/20/2025 1:52 AM EDT 06/20/2025 1:59 AM EDT us Phillip Clark MD LAB BLOOD ORDERABLES Final R esult [facility] [address] [place] [address] * PERIPHERAL IV (SMARTFORM LINK) (06/20/2025 1:47 [...] ECG Atrial Rate 85 BPM MUSE ECG CO Interval 176 ms MUSE ECG QRSD Interval 110 ms MUSE ECG QT Interval 402 ms MUSE ECG QTC Interval 478 ms MUSE ECG P [place] 43 degrees MUSE ECG R [place] -30 degrees MUSE ECG T Wave [place] 36 degrees MUSE ECG Diagnosis Poor data quality, interpretation may be adversely affected MUSE ECG Diagnosis Sinus rhythm with premature supraventricular complexes and with occasional premature ventricular complexes MUSE ECG Diagnosis Left axis deviation MUSE ECG Diagnosis Poor R-wave progression MUSE ECG Diagnosis Abnormal ECG MUSE ECG Diagnosis Recommend repeat ECG MUSE ECG Diagnosis MUSE ECG Diagnosis Confirmed by Aman Coe ([id number]) on 06/19/2025 1:33:10 PM MUSE ECG 06/19/2025 12:4 9 PM EDT 06/19/2025 1:33 PM EDT us Barbara MARIE ECG ORDERABLES Final Resul t MUSE ECG * (ABNORMAL) Basic metabolic panel (06/19/2025 2:38 AM EDT) Pathologist [facility] Glucose, Plasma 102(H) 74 - 99 mg/dL 06/19/2025 4:10 AM EDT [facility] BUN, Plasma 25(H) 8 - 23 mg/dL 06/19/2025 4:10 AM EDT [facility] Creatinine, Plasma 1.02 0.70 - 1.20 mg/dL 06/19/2025 4:10 AM EDT [facility] BUN/Creatinine Ratio 25 06/19/2025 4:10 AM EDT [facility] Sodium, Plasma 134(L) 136 - 145 mmol/L 06/19/2025 4:10 AM EDT [facility] Potassium, Plasma 4.6 3.6 - 4.9 mmol/L 06/19/2025 4:10 AM EDT [facility] Comment:Hemolyzed - Potassiu m may be falsely elevated by approximately 0.4-0.7 mmol/L. Chloride, Plasma 102 97 - 107 mmol/L 06/19/2025 4:10 AM EDT [facility] CO2, Plasma 23 22 - 29 mmol/L 06/19/2025 4:10 AM EDT [facility] Anion Gap 9 6 - 16 mmol/L 06/19/2025 4:10 AM EDT [facility] Total Calcium, Plasma 8.4(L) 8.9 - 10.2 mg/dL 06/19/2025 4:10 AM EDT [facility] eGFRcr 79.6 mL/min/1.7 3m*2 06/19/2025 4:10 AM EDT [facility] Comment:Reported eGFRcr in m L/min/1.73m2 is based the CKD-EPI 2020 equation that does not use a race coefficient. Blood Venous blood specimen / Unknown Venipuncture / Unknown 06/19/2025 2:38 AM EDT 06/19/2025 2:54 AM EDT us Phillip Clark MD LAB BLOOD ORDERABLES Final R esult [facility] [address] [place] [address] * Phosphorus (06/19/2025 2:38 AM EDT) Phosphorus, Plasma 3.6 2.5 - 4.5 mg/dL 06/19/2025 4:10 AM EDT [facility] Blood Venous blood specimen / Unknown Venipuncture / Unknown 06/19/2025 2:38 AM EDT 06/19/2025 2:54 AM EDT Phillip Clark MD LAB BLOOD ORDERABLES Final R esult Performing Organization Address City/[facility]/ZIP Co de Phone Number [facility] [address] [place] [address] * (ABNORMAL) Protime-INR (06/19/2025 2:38 AM EDT) Prothrombin Time 26.3(H) 12.0 - 14.3 sec LAB COAGULATION METHOD 06/19/2025 3:09 AM EDT [facility] INR 2.4(H) 0.9 - 1.1 LAB COAGULATION METHOD 06/19/2025 3:09 AM EDT [facility] Blood Venous blood specimen / Unknown Venipuncture / Unknown 06/19/2025 2:38 AM EDT 06/19/2025 2:54 AM EDT Narrative [facility] - 06/19/2025 3:09 AM EDT OPTIMAL INR RANGES FOR PATIENT ON ORAL ANTICOAGULANT THERAPY Prevention of venous thromboembolism INR 2.0 to 3.0 In patients with heart disease: Atrial fibrillation INR 2.0 to 3.0 Valvular heart disease INR 2.0 to 3.0 Tissue heart valves INR 2.0 to 3.0 Mechanical prosthetic valves INR 2.5 to 3.5 Prevention of recurrent [place] INR 2.5 to 3.5 Phillip Clark MD LAB BLOOD ORDERABLES Final R esult [facility] [address] [place] [address] * Magnesium (06/19/2025 2:38 AM EDT) Magnesium, Plasma 2.4 1.9 - 2.4 mg/dL 06/19/2025 4:10 AM EDT [facility] Blood Venous blood specimen / Unknown Venipuncture / Unknown 06/19/2025 2:38 AM EDT 06/19/2025 2:54 AM EDT us Phillip Clark MD LAB BLOOD ORDERABLES Final R esult [facility] [address] [place] [address] * (ABNORMAL) CBC (06/19/2025 2:38 AM EDT) WBC Count 6.94 3.70 - 10.30 10*3/uL LAB HEMATOLOGY METHOD 06/19/2025 3:17 AM EDT [facility] RBC Count 4.12(L) 4.60 - 6.10 10*6/uL LAB HEMATOLOGY METHOD 06/19/2025 3:17 AM EDT [facility] HGB 11.5(L) 13.7 - 17.5 g/dL LAB HEMATOLOGY METHOD 06/19/2025 3:17 AM EDT [facility] HCT 35.7(L) 40.0 - 51.0 % LAB HEMATOLOGY METHOD 06/19/2025 3:17 AM EDT [facility] Platelet Count 165 155 - 369 10*3/uL LAB HEMATOLOGY METHOD 06/19/2025 3:17 AM EDT [facility] MCV 87 79 - 98 fL LAB HEMATOLOGY METHOD 06/19/2025 3:17 AM EDT [facility] MCH 27.9 26.0 - 32.0 pg LAB HEMATOLOGY METHOD 06/19/2025 3:17 AM EDT [facility] MCHC 32.2 30.7 - 35.5 g/dL LAB HEMATOLOGY METHOD 06/19/2025 3:17 AM EDT [facility] RDW 14.8(H) 11.5 - 14.5 % LAB HEMATOLOGY METHOD 06/19/2025 3:17 AM EDT [facility] MPV 10.6 8.8 - 12.5 fL LAB HEMATOLOGY METHOD 06/19/2025 3:17 AM EDT [facility] nRBC 0.0 <=0.0 per 100 WBCs LAB HEMATOLOGY METHOD 06/19/2025 3:17 AM EDT [facility] Blood Venous blood specimen / Unknown Venipuncture / Unknown 06/19/2025 2:38 AM EDT 06/19/2025 2:54 AM EDT us Phillip Clark MD LAB BLOOD ORDERABLES Final R esult [facility] [address] [place] [address] * XR Chest 1 View (06/19/2025 1:50 [...] - 99 mg/dL 06/18/2025 2:17 AM EDT [facility] BUN, Plasma 18 8 - 23 mg/dL 06/18/2025 2:17 AM EDT [facility] Creatinine, Plasma 0.82 0.70 - 1.20 mg/dL 06/18/2025 2:17 AM EDT [facility] BUN/Creatinine Ratio 22 06/18/2025 2:17 AM EDT [facility] Sodium, Plasma 134(L) 136 - 145 mmol/L 06/18/2025 2:17 AM EDT [facility] Potassium, Plasma 3.7 3.6 - 4.9 mmol/L 06/18/2025 2:17 AM EDT [facility] Chloride, Plasma 100 97 - 107 mmol/L 06/18/2025 2:17 AM EDT [facility] CO2, Plasma 26 22 - 29 mmol/L 06/18/2025 2:17 AM EDT [facility] Anion Gap 8 6 - 16 mmol/L 06/18/2025 2:17 AM EDT [facility] Total Calcium, Plasma 8.1(L) 8.9 - 10.2 mg/dL 06/18/2025 2:17 AM EDT [facility] eGFRcr 95.1 mL/min/1.7 3m*2 06/18/2025 2:17 AM EDT [facility] Comment:Reported eGFRcr in m L/min/1.73m2 is based the CKD-EPI 2020 equation that does not use a race coefficient. Blood Blood sample taken from central line / Unknown Venipuncture / Unknown 06/18/2025 1:43 AM EDT 06/18/2025 1:48 AM EDT us Phillip Clark MD LAB BLOOD ORDERABLES Final R esult Performing Organization Address City/[facility] Co de Phone Number [facility] [address] [place] [address] * Phosphorus (06/18/2025 1:43 AM EDT) Phosphorus, Plasma 2.6 2.5 - 4.5 mg/dL 06/18/2025 2:17 AM EDT [facility] Blood Blood sample taken from central line / Unknown Venipuncture / Unknown 06/18/2025 1:43 AM EDT 06/18/2025 1:48 AM EDT us Phillip Clark MD LAB BLOOD ORDERABLES Final R esult Performing Organization Address City/[facility]/ZIP Co de Phone Number [facility] [address] [place] [address] * (ABNORMAL) Protime-INR (06/18/2025 1:43 AM EDT) Prothrombin Time 25.2(H) 12.0 - 14.3 sec LAB COAGULATION METHOD 06/18/2025 2:07 AM EDT [facility] INR 2.3(H) 0.9 - 1.1 LAB COAGULATION METHOD 06/18/2025 2:07 AM EDT [facility] Blood Blood sample taken from central line / Unknown Venipuncture / Unknown 06/18/2025 1:43 AM EDT 06/18/2025 1:48 AM EDT Narrative [facility] - 06/18/2025 2:07 AM EDT OPTIMAL INR RANGES FOR PATIENT ON ORAL ANTICOAGULANT THERAPY Prevention of venous thromboembolism INR 2.0 to 3.0 In patients with heart disease: Atrial fibrillation INR 2.0 to 3.0 Valvular heart disease INR 2.0 to 3.0 Tissue heart valves INR 2.0 to 3.0 Mechanical prosthetic valves INR 2.5 to 3.5 Prevention of recurrent [place] INR 2.5 to 3.5 us Phillip Clark MD LAB BLOOD ORDERABLES Final R esult Performing Organization Address City/[facility]/ZIP Co de Phone Number [facility] [address] [place] [address] * Magnesium (06/18/2025 1:43 AM EDT) Pathologist [facility] Magnesium, Plasma 2.3 1.9 - 2.4 mg/dL 06/18/2025 2:17 AM EDT [facility] Blood Blood sample taken from central line / Unknown Venipuncture / Unknown 06/18/2025 1:43 AM EDT 06/18/2025 1:48 AM EDT Phillip Clark MD LAB BLOOD ORDERABLES Final R esult [facility] [address] [place] [address] * (ABNORMAL) CBC (06/18/2025 1:43 AM EDT) WBC Count 8.51 3.70 - 10.30 10*3/uL LAB HEMATOLOGY METHOD 06/18/2025 1:54 AM EDT [facility] RBC Count 3.67(L) 4.60 - 6.10 10*6/uL LAB HEMATOLOGY METHOD 06/18/2025 1:54 AM EDT [facility] HGB 10.6(L) 13.7 - 17.5 g/dL LAB HEMATOLOGY METHOD 06/18/2025 1:54 AM EDT [facility] HCT 31.2(L) 40.0 - 51.0 % LAB HEMATOLOGY METHOD 06/18/2025 1:54 AM EDT [facility] Platelet Count 121(L) 155 - 369 10*3/uL LAB HEMATOLOGY METHOD 06/18/2025 1:54 AM EDT [facility] MCV 85 79 - 98 fL LAB HEMATOLOGY METHOD 06/18/2025 1:54 AM EDT [facility] MCH 28.9 26.0 - 32.0 pg LAB HEMATOLOGY METHOD 06/18/2025 1:54 AM EDT [facility] MCHC 34.0 30.7 - 35.5 g/dL LAB HEMATOLOGY METHOD 06/18/2025 1:54 AM EDT [facility] RDW 14.7(H) 11.5 - 14.5 % LAB HEMATOLOGY METHOD 06/18/2025 1:54 AM EDT [facility] MPV 10.4 8.8 - 12.5 fL LAB HEMATOLOGY METHOD 06/18/2025 1:54 AM EDT [facility] nRBC 0.0 <=0.0 per 100 WBCs LAB HEMATOLOGY METHOD 06/18/2025 1:54 AM EDT [facility] Blood Blood sample taken from central line / Unknown Venipuncture / Unknown 06/18/2025 1:43 AM EDT 06/18/2025 1:48 AM EDT us Phillip Clark MD LAB BLOOD ORDERABLES Final R esult [facility] [address] [place] [address] * XR Chest 1 View (06/17/2025 3:14 [...] - 99 mg/dL 06/17/2025 12:54 AM EDT [facility] BUN, Plasma 15 8 - 23 mg/dL 06/17/2025 12:54 AM EDT [facility] Creatinine, Plasma 0.81 0.70 - 1.20 mg/dL 06/17/2025 12:54 AM EDT [facility] BUN/Creatinine Ratio 19 06/17/2025 12:54 AM EDT [facility] Sodium, Plasma 133(L) 136 - 145 mmol/L 06/17/2025 12:54 AM EDT [facility] Potassium, Plasma 3.9 3.6 - 4.9 mmol/L 06/17/2025 12:54 AM EDT [facility] Chloride, Plasma 98 97 - 107 mmol/L 06/17/2025 12:54 AM EDT [facility] CO2, Plasma 25 22 - 29 mmol/L 06/17/2025 12:54 AM EDT [facility] Anion Gap 10 6 - 16 mmol/L 06/17/2025 12:54 AM EDT [facility] Total Calcium, Plasma 8.1(L) 8.9 - 10.2 mg/dL 06/17/2025 12:54 AM EDT [facility] eGFRcr 95.4 mL/min/1.7 3m*2 06/17/2025 12:54 AM EDT [facility] Comment:Reported eGFRcr in m L/min/1.73m2 is based the CKD-EPI 2020 equation that does not use a race coefficient. Blood Blood sample taken from central line / Unknown Venipuncture / Unknown 06/17/2025 12:17 AM EDT 06/17/2025 12:24 AM EDT us Phillip Clark MD LAB BLOOD ORDERABLES Final R esult [facility] [address] [place] [address] * Phosphorus (06/17/2025 12:17 AM EDT) Phosphorus, Plasma 2.9 2.5 - 4.5 mg/dL 06/17/2025 12:54 AM EDT [facility] Blood Blood sample taken from central line / Unknown Venipuncture / Unknown 06/17/2025 12:17 AM EDT 06/17/2025 12:24 AM EDT Phillip Clark MD LAB BLOOD ORDERABLES Final R esult Performing Organization Address City/[facility] Co de Phone Number [facility] [address] [place] [address] * (ABNORMAL) Protime-INR (06/17/2025 12:17 AM EDT) Prothrombin Time 18.7(H) 12.0 - 14.3 sec LAB COAGULATION METHOD 06/17/2025 1:16 AM EDT [facility] INR 1.5(H) 0.9 - 1.1 LAB COAGULATION METHOD 06/17/2025 1:16 AM EDT [facility] Blood Blood sample taken from central line / Unknown Venipuncture / Unknown 06/17/2025 12:17 AM EDT 06/17/2025 12:24 AM EDT Narrative [facility] - 06/17/2025 1:16 AM EDT OPTIMAL INR RANGES FOR PATIENT ON ORAL ANTICOAGULANT THERAPY Prevention of venous thromboembolism INR 2.0 to 3.0 In patients with heart disease: Atrial fibrillation INR 2.0 to 3.0 Valvular heart disease INR 2.0 to 3.0 Tissue heart valves INR 2.0 to 3.0 Mechanical prosthetic valves INR 2.5 to 3.5 Prevention of recurrent OH INR 2.5 to 3.5 us Phillip Clark MD LAB BLOOD ORDERABLES Final R esult Performing Organization Address City/[facility]/ZIP Co de Phone Number [facility] [address] [place] [address] * Magnesium (06/17/2025 12:17 AM EDT) Magnesium, Plasma 2.3 1.9 - 2.4 mg/dL 06/17/2025 12:54 AM EDT [facility] Blood Blood sample taken from central line / Unknown Venipuncture / Unknown 06/17/2025 12:17 AM EDT 06/17/2025 12:24 AM EDT us Phillip Clark MD LAB BLOOD ORDERABLES Final R esult [facility] [address] [place] [address] * (ABNORMAL) CBC (06/17/2025 12:17 AM EDT) WBC Count 10.83(H) 3.70 - 10.30 10*3/uL LAB HEMATOLOGY METHOD 06/17/2025 12:32 AM EDT [facility] RBC Count 4.08(L) 4.60 - 6.10 10*6/uL LAB HEMATOLOGY METHOD 06/17/2025 12:32 AM EDT [facility] HGB 11.3(L) 13.7 - 17.5 g/dL LAB HEMATOLOGY METHOD 06/17/2025 12:32 AM EDT [facility] HCT 35.0(L) 40.0 - 51.0 % LAB HEMATOLOGY METHOD 06/17/2025 12:32 AM EDT [facility] Platelet Count 116(L) 155 - 369 10*3/uL LAB HEMATOLOGY METHOD 06/17/2025 12:32 AM EDT [facility] MCV 86 79 - 98 fL LAB HEMATOLOGY METHOD 06/17/2025 12:32 AM EDT [facility] MCH 27.7 26.0 - 32.0 pg LAB HEMATOLOGY METHOD 06/17/2025 12:32 AM EDT [facility] MCHC 32.3 30.7 - 35.5 g/dL LAB HEMATOLOGY METHOD 06/17/2025 12:32 AM EDT [facility] RDW 15.1(H) 11.5 - 14.5 % LAB HEMATOLOGY METHOD 06/17/2025 12:32 AM EDT [facility] MPV 10.3 8.8 - 12.5 fL LAB HEMATOLOGY METHOD 06/17/2025 12:32 AM EDT [facility] nRBC 0.0 <=0.0 per 100 WBCs LAB HEMATOLOGY METHOD 06/17/2025 12:32 AM EDT [facility] Blood Blood sample taken from central line / Unknown Venipuncture / Unknown 06/17/2025 12:17 AM EDT 06/17/2025 12:24 AM EDT Phillip Clark MD LAB BLOOD ORDERABLES Final R esult Performing Organization Address [facility]/ZIP Co de Phone Number [facility] [address] [place] [address] * Magnesium (06/16/2025 5:35 PM EDT) Magnesium, Plasma 2.2 1.9 - 2.4 mg/dL 06/16/2025 7:41 PM EDT [facility] Blood Venous blood specimen / Unknown Venipuncture / Unknown 06/16/2025 5:35 PM EDT 06/16/2025 7:12 PM EDT Phillip Clark MD LAB BLOOD ORDERABLES Final R esult Performing Organization Address City/[facility] Co de Phone Number [facility] [address] [place] [address] * (ABNORMAL) Renal function panel (06/16/2025 5:35 PM EDT) Glucose, Plasma 89 74 - 99 mg/dL 06/16/2025 7:41 PM EDT [facility] BUN, Plasma 15 8 - 23 mg/dL 06/16/2025 7:41 PM EDT [facility] Creatinine, Plasma 0.79 0.70 - 1.20 mg/dL 06/16/2025 7:41 PM EDT [facility] BUN/Creatinine Ratio 19 06/16/2025 7:41 PM EDT [facility] Sodium, Plasma 134(L) 136 - 145 mmol/L 06/16/2025 7:41 PM EDT [facility] Potassium, Plasma 3.8 3.6 - 4.9 mmol/L 06/16/2025 7:41 PM EDT [facility] Chloride, Plasma 98 97 - 107 mmol/L 06/16/2025 7:41 PM EDT [facility] CO2, Plasma 25 22 - 29 mmol/L 06/16/2025 7:41 PM EDT [facility] Anion Gap 11 6 - 16 mmol/L 06/16/2025 7:41 PM EDT [facility] Total Calcium, Plasma 8.4(L) 8.9 - 10.2 mg/dL 06/16/2025 7:41 PM EDT [facility] Phosphorus, Plasma 2.2(L) 2.5 - 4.5 mg/dL 06/16/2025 7:41 PM EDT [facility] Albumin, Plasma 3.4(L) 3.5 - 5.2 g/dL 06/16/2025 7:41 PM EDT [facility] eGFRcr 96.2 mL/min/1.7 3m*2 06/16/2025 7:41 PM EDT [facility] Comment:Reported eGFRcr in m L/min/1.73m2 is based the CKD-EPI 2020 equation that does not use a race coefficient. Blood Venous blood specimen / Unknown Venipuncture / Unknown 06/16/2025 5:35 PM EDT 06/16/2025 7:12 PM EDT us Phillip Clark MD LAB BLOOD ORDERABLES Final R esult [facility] [address] [place] [address] * CO CRITICAL CARE, E/M 30-74 MINUTES (06/16/2025 9:58 [...] for testing. Comment 06/16/2025 8:45 AM EDT [facility] Window Draper ID Fariba Blanton 025 8:45 AM EDT [facility] Device ID [id number] 06/16/2025 8:45 AM EDT [facility] Specimen Type POC Arterial 06/16/2025 8:45 AM EDT [facility] Blood Arterial blood specimen / Unknown 06/16/2025 8:40 AM EDT 06/16/2025 8:45 AM EDT us Phillip Clark MD LAB POINT OF CARE TE ST DOCKED DEVICE UNSOLICITED RESULTS Final Result Performing Organization Address City/State/[facility] Co de Phone Number [facility] [address] [place] [id number] * (ABNORMAL) Basic metabolic panel (06/16/2025 5:58 AM EDT) Glucose, Plasma 124(H) 74 - 99 mg/dL 06/16/2025 6:35 AM EDT [facility] BUN, Plasma 16 8 - 23 mg/dL 06/16/2025 6:35 AM EDT [facility] Creatinine, Plasma 0.83 0.70 - 1.20 mg/dL 06/16/2025 6:35 AM EDT [facility] BUN/Creatinine Ratio 19 06/16/2025 6:35 AM EDT [facility] Sodium, Plasma 132(L) 136 - 145 mmol/L 06/16/2025 6:35 AM EDT [facility] Potassium, Plasma 3.8 3.6 - 4.9 mmol/L 06/16/2025 6:35 AM EDT [facility] Chloride, Plasma 100 97 - 107 mmol/L 06/16/2025 6:35 AM EDT [facility] CO2, Plasma 25 22 - 29 mmol/L 06/16/2025 6:35 AM EDT [facility] Anion Gap 7 6 - 16 mmol/L 06/16/2025 6:35 AM EDT [facility] Total Calcium, Plasma 8.4(L) 8.9 - 10.2 mg/dL 06/16/2025 6:35 AM EDT [facility] eGFRcr 94.7 mL/min/1.7 3m*2 06/16/2025 6:35 AM EDT [facility] Comment:Reported eGFRcr in m L/min/1.73m2 is based the CKD-EPI 2020 equation that does not use a race coefficient. Blood Arterial blood specimen / Unknown Venipuncture / Unknown 06/16/2025 5:58 AM EDT 06/16/2025 6:05 AM EDT us Phillip Clark MD LAB BLOOD ORDERABLES Final R esult [facility] [address] [place] [address] * XR Chest 1 View (06/16/2025 5:14 AM EDT) Anatomical Region Laterality Modality Chest Digital Radiogra phy Impressions 06/16/2025 8:15 AM EDT Interval removal of the Denver-Shira catheter, the right IJ sheath remains in [...] post median sternotomy. Interval removal of the Denver-Shira catheter, right IJ sheath remains in place with tip in the mid to distal SVC. No pneumothorax or pleural effusions. Ongoing interstitial edema. Procedure Note Mona Smith MD - 06/16/2025 CLINICAL INDICATION: Post-Op Cardiac Surgery TECHNIQUE: XR CHEST 1 VIEW COMPARISON: Chest radiograph 06/15/2025 FINDINGS: Enlarged cardiac silhouette stable status post median sternotomy. Intervalremoval of the Denver-Shira catheter, right IJ sheath remains in place withtip in the mid to distal SVC. No pneumothorax or pleural effusions. Ongoing interstitial edema. IMPRESSION: Interval removal of the Denver-Shira catheter, the right IJ sheath remainsin place [...] lt * Phosphorus (06/16/2025 12:36 AM EDT) [facility] Phosphorus, Plasma 3.0 2.5 - 4.5 mg/dL 06/16/2025 1:12 AM EDT [facility] Blood Arterial blood specimen / Unknown Venipuncture / Unknown 06/16/2025 12:36 AM EDT 06/16/2025 12:48 AM EDT us Phillip Clark MD LAB BLOOD ORDERABLES Final R esult [facility] [address] [place] [address] * (ABNORMAL) Protime-INR (06/16/2025 12:36 AM EDT) Prothrombin Time 18.0(H) 12.0 - 14.3 sec LAB COAGULATION METHOD 06/16/2025 1:06 AM EDT [facility] INR 1.5(H) 0.9 - 1.1 LAB COAGULATION METHOD 06/16/2025 1:06 AM EDT [facility] Blood Arterial blood specimen / Unknown Venipuncture / Unknown 06/16/2025 12:36 AM EDT 06/16/2025 12:48 AM EDT Narrative [facility] - 06/16/2025 1:06 AM EDT OPTIMAL INR RANGES FOR PATIENT ON ORAL ANTICOAGULANT THERAPY Prevention of venous thromboembolism INR 2.0 to 3.0 In patients with heart disease: Atrial fibrillation INR 2.0 to 3.0 Valvular heart disease INR 2.0 to 3.0 Tissue heart valves INR 2.0 to 3.0 Mechanical prosthetic valves INR 2.5 to 3.5 Prevention of recurrent [place] INR 2.5 to 3.5 Phillip Clark MD LAB BLOOD ORDERABLES Final R esult Performing Organization Address City/[facility]/ZIP Co de Phone Number [facility] [address] [place] [address] * (ABNORMAL) Magnesium (06/16/2025 12:36 AM EDT) Magnesium, Plasma 2.5(H) 1.9 - 2.4 mg/dL 06/16/2025 1:12 AM EDT [facility] Blood Arterial blood specimen / Unknown Venipuncture / Unknown 06/16/2025 12:36 AM EDT 06/16/2025 12:48 AM EDT Phillip Clark MD LAB BLOOD ORDERABLES Final R esult [facility] [address] [place] [address] * (ABNORMAL) CBC (06/16/2025 12:36 AM EDT) WBC Count 13.67(H) 3.70 - 10.30 10*3/uL LAB HEMATOLOGY METHOD 06/16/2025 1:01 AM EDT [facility] RBC Count 4.36(L) 4.60 - 6.10 10*6/uL LAB HEMATOLOGY METHOD 06/16/2025 1:01 AM EDT [facility] HGB 12.3(L) 13.7 - 17.5 g/dL LAB HEMATOLOGY METHOD 06/16/2025 1:01 AM EDT [facility] HCT 37.1(L) 40.0 - 51.0 % LAB HEMATOLOGY METHOD 06/16/2025 1:01 AM EDT [facility] Platelet Count 106(L) 155 - 369 10*3/uL LAB HEMATOLOGY METHOD 06/16/2025 1:01 AM EDT [facility] MCV 85 79 - 98 fL LAB HEMATOLOGY METHOD 06/16/2025 1:01 AM EDT [facility] MCH 28.2 26.0 - 32.0 pg LAB HEMATOLOGY METHOD 06/16/2025 1:01 AM EDT [facility] MCHC 33.2 30.7 - 35.5 g/dL LAB HEMATOLOGY METHOD 06/16/2025 1:01 AM EDT [facility] RDW 15.4(H) 11.5 - 14.5 % LAB HEMATOLOGY METHOD 06/16/2025 1:01 AM EDT [facility] MPV 10.8 8.8 - 12.5 fL LAB HEMATOLOGY METHOD 06/16/2025 1:01 AM EDT [facility] nRBC 0.0 <=0.0 per 100 WBCs LAB HEMATOLOGY METHOD 06/16/2025 1:01 AM EDT [facility] Blood Arterial blood specimen / Unknown Venipuncture / Unknown 06/16/2025 12:36 AM EDT 06/16/2025 12:48 AM EDT us Phillip Clark MD LAB BLOOD ORDERABLES Final R esult [facility] [address] [place] [address] * (ABNORMAL) Blood gas, arterial (06/16/2025 12:36 AM EDT) pH, Arterial 7.43(H) 7.31 - 7.42 LAB HEMATOLOGY METHOD 06/16/2025 12:58 AM EDT [facility] pCO2, Arterial 41 32 - 45 mmHg LAB HEMATOLOGY METHOD 06/16/2025 12:58 AM EDT [facility] pO2, Arterial 65(L) >80 mmHg LAB HEMATOLOGY METHOD 06/16/2025 12:58 AM EDT [facility] SO2, Measured, Arterial 94 94 - 98 % LAB HEMATOLOGY METHOD 06/16/2025 12:58 AM EDT [facility] Base Excess, Arterial 2.5 -2.0 - 3.0 mmol/L LAB HEMATOLOGY METHOD 06/16/2025 12:58 AM EDT [facility] Bicarbonate, Calculated, Arterial 27(H) 22 - 26 mmol/L LAB HEMATOLOGY METHOD 06/16/2025 12:58 AM EDT [facility] Hematocrit, Whole Blood 37.9(L) 40.0 - 51.0 % LAB HEMATOLOGY METHOD 06/16/2025 12:58 AM EDT [facility] Sodium, Whole Blood 133(L) 136 - 145 mmol/L LAB HEMATOLOGY METHOD 06/16/2025 12:58 AM EDT [facility] Potassium, Whole Blood 3.4(L) 3.6 - 4.9 mmol/L LAB HEMATOLOGY METHOD 06/16/2025 12:58 AM EDT [facility] Chloride, Whole Blood 100 97 - 107 mmol/L LAB HEMATOLOGY METHOD 06/16/2025 12:58 AM EDT [facility] Glucose, Whole Blood 124(H) 74 - 99 mg/dL LAB HEMATOLOGY METHOD 06/16/2025 12:58 AM EDT [facility] Ionized Calcium, Whole Blood 4.3(L) 4.6 - 5.1 mg/dL LAB HEMATOLOGY METHOD 06/16/2025 12:58 AM EDT [facility] Lactate, Arterial, Whole Blood 1.0 0.5 - 1.6 mmol/L LAB HEMATOLOGY METHOD 06/16/2025 12:58 AM EDT [facility] Blood Arterial blood specimen / Unknown Arterial Puncture / Unknown 06/16/2025 12:36 AM EDT 06/16/2025 12:55 AM EDT us Phillip Clark MD LAB BLOOD ORDERABLES Final R esult [facility] [address] [place] [address] * (ABNORMAL) POCT glucose meter (06/15/2025 8:00 PM EDT) Pathologist [facility] POCT Glucose 120(H) 74 - [...] Comment 06/15/2025 8:01 PM EDT [facility] Window Draper ID Svetlana Reilly 8:01 PM EDT [facility] Device ID [id number] 06/15/2025 8:01 PM EDT [facility] Specimen Type POC Capillary 06/15/2025 8:01 PM EDT [facility] Blood Capillary blood specimen / Unknown 06/15/2025 8:00 PM EDT 06/15/2025 8:01 PM EDT Phillip Clark MD LAB POINT OF CARE TE ST DOCKED DEVICE UNSOLICITED RESULTS Final Result Performing Organization Address City/State/[facility] Co de Phone Number [facility] [address] [place] [address] * (ABNORMAL) POCT glucose meter (06/15/2025 5:56 PM EDT) Pathologist [facility] POCT Glucose 121(H) 74 - [...] 06/15/2025 5:57 PM EDT [facility] Window Draper ID Bony Thomas 5:57 PM EDT [facility]ALTH[facility]ARE [facility] Device ID [id number] 06/15/2025 5:57 PM EDT [facility] Specimen Type POC Arterial 06/15/2025 5:57 PM EDT [facility] Blood Arterial blood specimen / Unknown 06/15/2025 5:56 PM EDT 06/15/2025 5:57 PM EDT us Phillip Clark MD LAB POINT OF CARE TE ST DOCKED DEVICE UNSOLICITED RESULTS Final Result Performing Organization Address City/[facility]/ZIP Co de Phone Number [facility] [address] [place] [address] * Magnesium (06/15/2025 4:11 PM EDT) Magnesium, Plasma 2.1 1.9 - 2.4 mg/dL 06/15/2025 6:21 PM EDT [facility] Blood Venous blood specimen / Unknown Venipuncture / Unknown 06/15/2025 4:11 PM EDT 06/15/2025 4:39 PM EDT Phillip Clark MD LAB BLOOD ORDERABLES Final R esult Performing Organization Address City/[facility]/ZIP Co de Phone Number [facility] [address] [place] [address] * Phosphorus (06/15/2025 4:11 PM EDT) Phosphorus, Plasma 2.9 2.5 - 4.5 mg/dL 06/15/2025 5:12 PM EDT [facility] Blood Venous blood specimen / Unknown Venipuncture / Unknown 06/15/2025 4:11 PM EDT 06/15/2025 4:39 PM EDT Phillip Clark MD LAB BLOOD ORDERABLES Final R esult Performing Organization Address City/[facility]/ZIP Co de Phone Number [facility] [address] [place] [id number] * (ABNORMAL) Basic metabolic panel (06/15/2025 4:11 PM EDT) Glucose, Plasma 123(H) 74 - 99 mg/dL 06/15/2025 5:12 PM EDT [facility] BUN, Plasma 19 8 - 23 mg/dL 06/15/2025 5:12 PM EDT [facility] Creatinine, Plasma 0.88 0.70 - 1.20 mg/dL 06/15/2025 5:12 PM EDT [facility] BUN/Creatinine Ratio 22 06/15/2025 5:12 PM EDT [facility] Sodium, Plasma 133(L) 136 - 145 mmol/L 06/15/2025 5:12 PM EDT [facility] Potassium, Plasma 3.9 3.6 - 4.9 mmol/L 06/15/2025 5:12 PM EDT [facility] Chloride, Plasma 102 97 - 107 mmol/L 06/15/2025 5:12 PM EDT [facility] CO2, Plasma 23 22 - 29 mmol/L 06/15/2025 5:12 PM EDT [facility] Anion Gap 8 6 - 16 mmol/L 06/15/2025 5:12 PM EDT [facility] Total Calcium, Plasma 8.6(L) 8.9 - 10.2 mg/dL 06/15/2025 5:12 PM EDT [facility] eGFRcr 93.1 mL/min/1.7 3m*2 06/15/2025 5:12 PM EDT [facility] Comment:Reported eGFRcr in m L/min/1.73m2 is based the CKD-EPI 2020 equation that does not use a race coefficient. Blood Venous blood specimen / Unknown Venipuncture / Unknown 06/15/2025 4:11 PM EDT 06/15/2025 4:39 PM EDT us Phillip Clark MD LAB BLOOD ORDERABLES Final R esult [facility] [address] [place] [address] * (ABNORMAL) POCT glucose meter (06/15/2025 12:14 PM EDT) POCT Glucose 137(H) 74 - 99 mg/dL 06/15/2025 12:16 PM EDT [facility] Comment:Accuracy of a glucos e result [...] Comment 06/15/2025 12:16 PM EDT [facility] Window Draper ID Bony Thomas 025 12:16 PM EDT [facility] Device ID [id number] 06/15/2025 12:16 PM EDT [facility] Specimen Type POC Arterial 06/15/2025 12:16 PM EDT [facility] Blood Arterial blood specimen / Unknown 06/15/2025 12:14 PM EDT 06/15/2025 12:16 PM EDT us Phillip Clark MD LAB POINT OF CARE TE ST DOCKED DEVICE UNSOLICITED RESULTS Final Result Performing Organization Address City/State/[facility] Phone Number [facility] [address] [place] [address] * CO CRITICAL CARE, E/M 30-74 MINUTES (06/15/2025 9:19 [...] POCT glucose meter (06/15/2025 8:24 AM EDT) [facility] POCT Glucose 129(H) 74 - 99 [...] Comment 06/15/2025 8:25 AM EDT [facility] Window Draper ID Bony Thomas 025 8:25 AM EDT HEALTHCARE LAB Device ID [id number] 06/15/2025 8:25 AM EDT [facility] Specimen Type POC Arterial 06/15/2025 8:25 AM EDT [facility] Blood Arterial blood specimen / Unknown 06/15/2025 8:24 AM EDT 06/15/2025 8:25 AM EDT Phillip Clark MD LAB POINT OF CARE TE ST DOCKED DEVICE UNSOLICITED RESULTS Final Result Performing Organization Address City/State/[facility] Co de Phone Number [facility] [address] [place] [address] * (ABNORMAL) CBC and Differential (06/15/2025 8:18 AM EDT) [facility] WBC Count 12.56(H) 3.70 - 10.30 10*3/uL LAB HEMATOLOGY METHOD 06/15/2025 8:47 AM EDT [facility] RBC Count 4.60 4.60 - 6.10 10*6/uL LAB HEMATOLOGY METHOD 06/15/2025 8:47 AM EDT [facility] HGB 12.8(L) 13.7 - 17.5 g/dL LAB HEMATOLOGY METHOD 06/15/2025 8:47 AM EDT [facility] HCT 39.4(L) 40.0 - 51.0 % LAB HEMATOLOGY METHOD 06/15/2025 8:47 AM EDT [facility] Platelet Count 120(L) 155 - 369 10*3/uL LAB HEMATOLOGY METHOD 06/15/2025 8:47 AM EDT [facility] MCV 86 79 - 98 fL LAB HEMATOLOGY METHOD 06/15/2025 8:47 AM EDT [facility] MCH 27.8 26.0 - 32.0 pg LAB HEMATOLOGY METHOD 06/15/2025 8:47 AM EDT [facility] MCHC 32.5 30.7 - 35.5 g/dL LAB HEMATOLOGY METHOD 06/15/2025 8:47 AM EDT [facility] RDW 15.5(H) 11.5 - 14.5 % LAB HEMATOLOGY METHOD 06/15/2025 8:47 AM EDT [facility] MPV 10.6 8.8 - 12.5 fL LAB HEMATOLOGY METHOD 06/15/2025 8:47 AM EDT [facility] nRBC 0.0 <=0.0 per 100 WBCs LAB HEMATOLOGY METHOD 06/15/2025 8:47 AM EDT [facility] Differential Type Automated LAB HEMATOLOGY METHOD 06/15/2025 8:47 AM EDT [facility] Neutrophils % 84 % LAB HEMATOLOGY METHOD 06/15/2025 8:47 AM EDT [facility] Lymphocytes % 5 % LAB HEMATOLOGY METHOD 06/15/2025 8:47 AM EDT [facility] Monocytes % 10 % LAB HEMATOLOGY METHOD 06/15/2025 8:47 AM EDT [facility] Eosinophils % 0 % LAB HEMATOLOGY METHOD 06/15/2025 8:47 AM EDT [facility] Basophils % 0 % LAB HEMATOLOGY METHOD 06/15/2025 8:47 AM EDT [facility] Immature Granulocytes % 1 % LAB HEMATOLOGY METHOD 06/15/2025 8:47 AM EDT [facility] Neutrophils Absolute 10.59(H) 1.60 - 6.10 10*3/uL LAB HEMATOLOGY METHOD 06/15/2025 8:47 AM EDT [facility] Lymphocytes Absolute 0.60(L) 1.20 - 3.90 10*3/uL LAB HEMATOLOGY METHOD 06/15/2025 8:47 AM EDT [facility] Monocytes Absolute 1.29(H) 0.30 - 0.90 10*3/uL LAB HEMATOLOGY METHOD 06/15/2025 8:47 AM EDT [facility] Eosinophils Absolute 0.00 0.00 - 0.50 10*3/uL LAB HEMATOLOGY METHOD 06/15/2025 8:47 AM EDT [facility] Basophils Absolute 0.02 0.00 - 0.10 10*3/uL LAB HEMATOLOGY METHOD 06/15/2025 8:47 AM EDT [facility] Immature Granulocytes Absolute 0.06 0.00 - 0.06 10*3/uL LAB HEMATOLOGY METHOD 06/15/2025 8:47 AM EDT [facility] Blood Venous blood specimen / Unknown Venipuncture / Unknown 06/15/2025 8:18 AM EDT 06/15/2025 8:34 AM EDT Narrative [facility] - 06/15/2025 8:47 AM EDT Therapeutic decision making should be based on absolute values, rather than percentages. us Phillip Clark MD LAB BLOOD ORDERABLES Final R esult [facility] [address] [place] [address] * (ABNORMAL) Protime-INR (06/15/2025 6:40 AM EDT) Prothrombin Time 16.5(H) 12.0 - 14.3 sec LAB COAGULATION METHOD 06/15/2025 7:53 AM EDT [facility] INR 1.3(H) 0.9 - 1.1 LAB COAGULATION METHOD 06/15/2025 7:53 AM EDT [facility] Blood Arterial blood specimen / Unknown Venipuncture / Unknown 06/15/2025 6:40 AM EDT 06/15/2025 6:47 AM EDT Narrative [facility] - 06/15/2025 7:53 AM EDT OPTIMAL INR RANGES FOR PATIENT ON ORAL ANTICOAGULANT THERAPY Prevention of venous thromboembolism INR 2.0 to 3.0 In patients with heart disease: Atrial fibrillation INR 2.0 to 3.0 Valvular heart disease INR 2.0 to 3.0 Tissue heart valves INR 2.0 to 3.0 Mechanical prosthetic valves INR 2.5 to 3.5 Prevention of recurrent OH INR 2.5 to 3.5 us Phillip Clark MD LAB BLOOD ORDERABLES Final R esult Performing Organization Address [facility] Co de Phone Number [facility] [address] [place] [address] * Ionized calcium, whole blood (06/15/2025 6:40 AM EDT) Ionized Calcium, Whole Blood 4.6 4.6 - 5.1 mg/dL LAB HEMATOLOGY METHOD 06/15/2025 6:50 AM EDT [facility] Blood Arterial blood specimen / Unknown Venipuncture / Unknown 06/15/2025 6:40 AM EDT 06/15/2025 6:48 AM EDT Phillip Clark MD LAB BLOOD ORDERABLES Final R esult Performing Organization Address [facility] de Phone Number [facility] [address] [place] [address] * ECG Adult - POD 1 (06/15/2025 5:20 AM EDT) Pathologist [facility] EKG DIAGNOSIS CLASS Abnormal MUSE ECG Ventricular Rate 71 BPM MUSE ECG Atrial Rate 71 BPM MUSE ECG CO Interval 182 ms MUSE ECG QRSD Interval 108 ms MUSE ECG QT Interval 418 ms MUSE ECG QTC Interval 454 ms MUSE ECG P [place] 51 degrees MUSE ECG R [place] -48 degrees MUSE ECG T Wave [place] -12 degrees MUSE ECG Diagnosis Normal sinus rhythm MUSE ECG Diagnosis Left anterior fascicular block MUSE ECG Diagnosis Abnormal ECG MUSE ECG Diagnosis MUSE ECG Diagnosis Confirmed by Bimal Brambila ([id number]) on 06/15/2025 11:38:57 AM MUSE ECG 06/15/2025 5:20 AM EDT 06/15/2025 11:38 AM EDT Phillip Clark MD ECG ORDERABLES Final Result Performing Organization Address [facility] Co de Phone Number MUSE ECG * (ABNORMAL) Blood gas panel, arterial (06/15/2025 3:58 AM EDT) pH, Arterial 7.39 7.31 - 7.42 LAB HEMATOLOGY METHOD 06/15/2025 4:06 AM EDT [facility] pCO2, Arterial 39 32 - 45 mmHg LAB HEMATOLOGY METHOD 06/15/2025 4:06 AM EDT [facility] pO2, Arterial 79(L) >80 mmHg LAB HEMATOLOGY METHOD 06/15/2025 4:06 AM EDT [facility] SO2, Measured, Arterial 97 94 - 98 % LAB HEMATOLOGY METHOD 06/15/2025 4:06 AM EDT [facility] Base Excess, Arterial -1.2 -2.0 - 3.0 mmol/L LAB HEMATOLOGY METHOD 06/15/2025 4:06 AM EDT [facility] Bicarbonate, Calculated, Arterial 24 22 - 26 mmol/L LAB HEMATOLOGY METHOD 06/15/2025 4:06 AM EDT [facility] Hematocrit, Whole Blood 39.7(L) 40.0 - 51.0 % LAB HEMATOLOGY METHOD 06/15/2025 4:06 AM EDT [facility] Sodium, Whole Blood 134(L) 136 - 145 mmol/L LAB HEMATOLOGY METHOD 06/15/2025 4:06 AM EDT [facility] Potassium, Whole Blood 4.4 3.6 - 4.9 mmol/L LAB HEMATOLOGY METHOD 06/15/2025 4:06 AM EDT [facility] Chloride, Whole Blood 108(H) 97 - 107 mmol/L LAB HEMATOLOGY METHOD 06/15/2025 4:06 AM EDT [facility] Glucose, Whole Blood 132(H) 74 - 99 mg/dL LAB HEMATOLOGY METHOD 06/15/2025 4:06 AM EDT [facility] Ionized Calcium, Whole Blood 4.5(L) 4.6 - 5.1 mg/dL LAB HEMATOLOGY METHOD 06/15/2025 4:06 AM EDT [facility] Lactate, Arterial, Whole Blood 0.9 0.5 - 1.6 mmol/L LAB HEMATOLOGY METHOD 06/15/2025 4:06 AM EDT [facility] Blood Arterial blood specimen / Unknown Arterial Puncture / Unknown 06/15/2025 3:58 AM EDT 06/15/2025 4:06 AM EDT us Phillip Clark MD LAB BLOOD ORDERABLES Final R esult [facility] [address] [place] [address] * XR Chest 1 View (06/15/2025 2:53 [...] of NG tube. Right internal jugular approach [place]-Shira catheter and mediastinal drain in unchanged position. [...] IMG XR PROCEDURES Final Resu lt * CO CRITICAL CARE, ADDL 30 MIN, CO CRITICAL CARE, ADDL 30 MIN (06/15/2025 12:21 [...] LAB HEMATOLOGY METHOD 06/15/2025 8:17 AM EDT [facility] Neutrophils % 85 % LAB HEMATOLOGY METHOD 06/15/2025 8:17 AM EDT [facility] Lymphocytes % 4 % LAB HEMATOLOGY METHOD 06/15/2025 8:17 AM EDT [facility] Monocytes % 10 % LAB HEMATOLOGY METHOD 06/15/2025 8:17 AM EDT [facility] Eosinophils % 0 % LAB HEMATOLOGY METHOD 06/15/2025 8:17 AM EDT [facility] Basophils % 0 % LAB HEMATOLOGY METHOD 06/15/2025 8:17 AM EDT [facility] Immature Granulocytes % 1 % LAB HEMATOLOGY METHOD 06/15/2025 8:17 AM EDT [facility] Immature Granulocytes Absolute 0.05 0.00 - 0.06 10*3/uL LAB HEMATOLOGY METHOD 06/15/2025 8:17 AM EDT [facility] Neutrophils Absolute 9.28(H) 1.60 - 6.10 10*3/uL LAB HEMATOLOGY METHOD 06/15/2025 8:17 AM EDT [facility] Lymphocytes Absolute 0.45(L) 1.20 - 3.90 10*3/uL LAB HEMATOLOGY METHOD 06/15/2025 8:17 AM EDT [facility] Monocytes Absolute 1.14(H) 0.30 - 0.90 10*3/uL LAB HEMATOLOGY METHOD 06/15/2025 8:17 AM EDT [facility] Basophils Absolute 0.02 0.00 - 0.10 10*3/uL LAB HEMATOLOGY METHOD 06/15/2025 8:17 AM EDT [facility] Eosinophils Absolute 0.00 0.00 - 0.50 10*3/uL LAB HEMATOLOGY METHOD 06/15/2025 8:17 AM EDT [facility] Blood Venous blood specimen / Unknown Venipuncture / Unknown 06/15/2025 12:20 AM EDT 06/15/2025 12:26 AM EDT us Phillip Clark MD LAB BLOOD ORDERABLES Final R esult [facility] [address] [place] [address] * Phosphorus (06/15/2025 12:20 AM EDT) Phosphorus, Plasma 2.6 2.5 - 4.5 mg/dL 06/15/2025 8:33 AM EDT [facility] Blood Venous blood specimen / Unknown Venipuncture / Unknown 06/15/2025 12:20 AM EDT 06/15/2025 12:26 AM EDT us Phillip Clark MD LAB BLOOD ORDERABLES Final R esult [facility] [address] [place] [address] * (ABNORMAL) Magnesium (06/15/2025 12:20 AM EDT) Magnesium, Plasma 2.5(H) 1.9 - 2.4 mg/dL 06/15/2025 7:37 AM EDT [facility] Blood Venous blood specimen / Unknown Venipuncture / Unknown 06/15/2025 12:20 AM EDT 06/15/2025 12:26 AM EDT us Phillip Clrak MD LAB BLOOD ORDERABLES Final R esult [facility] [address] [place] [address] * (ABNORMAL) Basic metabolic panel (06/15/2025 12:20 AM EDT) Glucose, Plasma 140(H) 74 - 99 mg/dL 06/15/2025 7:37 AM EDT [facility] BUN, Plasma 17 8 - 23 mg/dL 06/15/2025 7:37 AM EDT [facility] Creatinine, Plasma 0.84 0.70 - 1.20 mg/dL 06/15/2025 7:37 AM EDT [facility] BUN/Creatinine Ratio 20 06/15/2025 7:37 AM EDT [facility] Sodium, Plasma 138 136 - 145 mmol/L 06/15/2025 7:37 AM EDT [facility] Potassium, Plasma 4.6 3.6 - 4.9 mmol/L 06/15/2025 7:37 AM EDT [facility] Chloride, Plasma 107 97 - 107 mmol/L 06/15/2025 7:37 AM EDT [facility] CO2, Plasma 18(L) 22 - 29 mmol/L 06/15/2025 7:37 AM EDT [facility] Anion Gap 13 6 - 16 mmol/L 06/15/2025 7:37 AM EDT [facility] Total Calcium, Plasma 8.0(L) 8.9 - 10.2 mg/dL 06/15/2025 7:37 AM EDT [facility] eGFRcr 94.4 mL/min/1.7 3m*2 06/15/2025 7:37 AM EDT [facility] Comment:Reported eGFRcr in m L/min/1.73m2 is based the CKD-EPI 2020 equation that does not use a race coefficient. Blood Venous blood specimen / Unknown Venipuncture / Unknown 06/15/2025 12:20 AM EDT 06/15/2025 12:26 AM EDT us Phillip Clark MD LAB BLOOD ORDERABLES Final R esult [facility] [address] [place] [address] * (ABNORMAL) CBC W/O Differential (06/15/2025 12:20 AM EDT) WBC Count 10.94(H) 3.70 - 10.30 10*3/uL LAB HEMATOLOGY METHOD 06/15/2025 8:32 AM EDT [facility] RBC Count 4.94 4.60 - 6.10 10*6/uL LAB HEMATOLOGY METHOD 06/15/2025 8:32 AM EDT [facility] HGB 13.6(L) 13.7 - 17.5 g/dL LAB HEMATOLOGY METHOD 06/15/2025 8:32 AM EDT [facility] HCT 41.0 40.0 - 51.0 % LAB HEMATOLOGY METHOD 06/15/2025 8:32 AM EDT [facility] Platelet Count 142(L) 155 - 369 10*3/uL LAB HEMATOLOGY METHOD 06/15/2025 8:32 AM EDT [facility] MCV 87 79 - 98 fL LAB HEMATOLOGY METHOD 06/15/2025 8:32 AM EDT [facility] MCH 27.5 26.0 - 32.0 pg LAB HEMATOLOGY METHOD 06/15/2025 8:32 AM EDT [facility] MCHC 31.8 30.7 - 35.5 g/dL LAB HEMATOLOGY METHOD 06/15/2025 8:32 AM EDT [facility] RDW 15.6(H) 11.5 - 14.5 % LAB HEMATOLOGY METHOD 06/15/2025 8:32 AM EDT [facility] MPV 11.1 8.8 - 12.5 fL LAB HEMATOLOGY METHOD 06/15/2025 8:32 AM EDT [facility] nRBC 0.0 <=0.0 per 100 WBCs LAB HEMATOLOGY METHOD 06/15/2025 8:32 AM EDT [facility] Blood Venous blood specimen / Unknown Venipuncture / Unknown 06/15/2025 12:20 AM EDT 06/15/2025 12:26 AM EDT us Phillip Clark MD LAB BLOOD ORDERABLES Final R esult Performing Organization Address City/[facility]/ZIP Co de Phone Number [facility] [address] [place] [address] * Potassium, Plasma (06/15/2025 12:20 AM EDT) Potassium, Plasma 4.5 3.6 - 4.9 mmol/L 06/15/2025 12:51 AM EDT [facility] Blood Venous blood specimen / Unknown Venipuncture / Unknown 06/15/2025 12:20 AM EDT 06/15/2025 12:26 AM EDT us Phillip Clark MD LAB BLOOD ORDERABLES Final R esult Performing Organization Address [facility] Co de Phone Number [facility] [address] [place] [address] * Hematocrit (06/15/2025 12:20 AM EDT) HCT 41.0 40.0 - 51.0 % LAB HEMATOLOGY METHOD 06/15/2025 12:36 AM EDT [facility] Blood Venous blood specimen / Unknown Venipuncture / Unknown 06/15/2025 12:20 AM EDT 06/15/2025 12:26 AM EDT us Phillip Clark MD LAB BLOOD ORDERABLES Final R esult Performing Organization Address City/[facility]/ZIP Co de Phone Number [facility] [address] [place] [address] * (ABNORMAL) Hemoglobin (06/15/2025 12:20 AM EDT) HGB 13.6(L) 13.7 - 17.5 g/dL LAB HEMATOLOGY METHOD 06/15/2025 12:36 AM EDT [facility] Blood Venous blood specimen / Unknown Venipuncture / Unknown 06/15/2025 12:20 AM EDT 06/15/2025 12:26 AM EDT us Phillip Clark MD LAB BLOOD ORDERABLES Final R esult [facility] [address] [place] [address] * (ABNORMAL) Blood gas, arterial (06/15/2025 12:20 AM EDT) pH, Arterial 7.37 7.31 - 7.42 LAB HEMATOLOGY METHOD 06/15/2025 12:37 AM EDT [facility] pCO2, Arterial 40 32 - 45 mmHg LAB HEMATOLOGY METHOD 06/15/2025 12:37 AM EDT [facility] pO2, Arterial 65(L) >80 mmHg LAB HEMATOLOGY METHOD 06/15/2025 12:37 AM EDT [facility] SO2, Measured, Arterial 94 94 - 98 % LAB HEMATOLOGY METHOD 06/15/2025 12:37 AM EDT [facility] Base Excess, Arterial -1.8 -2.0 - 3.0 mmol/L LAB HEMATOLOGY METHOD 06/15/2025 12:37 AM EDT [facility] Bicarbonate, Calculated, Arterial 23 22 - 26 mmol/L LAB HEMATOLOGY METHOD 06/15/2025 12:37 AM EDT [facility] Hematocrit, Whole Blood 41.1 40.0 - 51.0 % LAB HEMATOLOGY METHOD 06/15/2025 12:37 AM EDT [facility] Sodium, Whole Blood 137 136 - 145 mmol/L LAB HEMATOLOGY METHOD 06/15/2025 12:37 AM EDT [facility] Potassium, Whole Blood 4.2 3.6 - 4.9 mmol/L LAB HEMATOLOGY METHOD 06/15/2025 12:37 AM EDT [facility] Chloride, Whole Blood 110(H) 97 - 107 mmol/L LAB HEMATOLOGY METHOD 06/15/2025 12:37 AM EDT [facility] Glucose, Whole Blood 140(H) 74 - 99 mg/dL LAB HEMATOLOGY METHOD 06/15/2025 12:37 AM EDT [facility] Ionized Calcium, Whole Blood 4.5(L) 4.6 - 5.1 mg/dL LAB HEMATOLOGY METHOD 06/15/2025 12:37 AM EDT [facility] Lactate, Arterial, Whole Blood 1.8(H) 0.5 - 1.6 mmol/L LAB HEMATOLOGY METHOD 06/15/2025 12:37 AM EDT [facility] Blood Arterial blood specimen / Unknown Arterial Puncture / Unknown 06/15/2025 12:20 AM EDT 06/15/2025 12:34 AM EDT us Phillip Clark MD LAB BLOOD ORDERABLES Final R esult [facility] [address] [place] [address] * (ABNORMAL) Blood gas, arterial (06/14/2025 8:04 PM EDT) pH, Arterial 7.35 7.31 - 7.42 LAB HEMATOLOGY METHOD 06/14/2025 8:19 PM EDT [facility] pCO2, Arterial 39 32 - 45 mmHg LAB HEMATOLOGY METHOD 06/14/2025 8:19 PM EDT [facility] pO2, Arterial 88 >80 mmHg LAB HEMATOLOGY METHOD 06/14/2025 8:19 PM EDT [facility] SO2, Measured, Arterial 98 94 - 98 % LAB HEMATOLOGY METHOD 06/14/2025 8:19 PM EDT [facility] Base Excess, Arterial -3.7(L) -2.0 - 3.0 mmol/L LAB HEMATOLOGY METHOD 06/14/2025 8:19 PM EDT [facility] Bicarbonate, Calculated, Arterial 22 22 - 26 mmol/L LAB HEMATOLOGY METHOD 06/14/2025 8:19 PM EDT [facility] Hematocrit, Whole Blood 44.7 40.0 - 51.0 % LAB HEMATOLOGY METHOD 06/14/2025 8:19 PM EDT [facility] Sodium, Whole Blood 138 136 - 145 mmol/L LAB HEMATOLOGY METHOD 06/14/2025 8:19 PM EDT [facility] Potassium, Whole Blood 4.5 3.6 - 4.9 mmol/L LAB HEMATOLOGY METHOD 06/14/2025 8:19 PM EDT [facility] Chloride, Whole Blood 109(H) 97 - 107 mmol/L LAB HEMATOLOGY METHOD 06/14/2025 8:19 PM EDT [facility] Glucose, Whole Blood 185(H) 74 - 99 mg/dL LAB HEMATOLOGY METHOD 06/14/2025 8:19 PM EDT [facility] Ionized Calcium, Whole Blood 4.5(L) 4.6 - 5.1 mg/dL LAB HEMATOLOGY METHOD 06/14/2025 8:19 PM EDT [facility] Lactate, Arterial, Whole Blood 3.0(H) 0.5 - 1.6 mmol/L LAB HEMATOLOGY METHOD 06/14/2025 8:19 PM EDT [facility] Blood Arterial blood specimen / Unknown Arterial Puncture / Unknown 06/14/2025 8:04 PM EDT 06/14/2025 8:14 PM EDT us Phillip Clark MD LAB BLOOD ORDERABLES Final R esult [facility] [address] [place] [address] * Potassium (06/14/2025 8:03 PM EDT) Potassium, Plasma 4.9 3.6 - 4.9 mmol/L 06/14/2025 8:33 PM EDT [facility] Blood Arterial blood specimen / Unknown Venipuncture / Unknown 06/14/2025 8:03 PM EDT 06/14/2025 8:11 PM EDT us Phillip Clark MD LAB BLOOD ORDERABLES Final R esult [facility] [address] [place] [address] * (ABNORMAL) Magnesium (06/14/2025 8:03 PM EDT) Magnesium, Plasma 2.7(H) 1.9 - 2.4 mg/dL 06/14/2025 8:40 PM EDT [facility] Blood Arterial blood specimen / Unknown Venipuncture / Unknown 06/14/2025 8:03 PM EDT 06/14/2025 8:11 PM EDT us Phillip Clark MD LAB BLOOD ORDERABLES Final R esult [facility] [address] [place] [address] * (ABNORMAL) CBC (06/14/2025 8:03 PM EDT) WBC Count 13.98(H) 3.70 - 10.30 10*3/uL LAB HEMATOLOGY METHOD 06/14/2025 8:20 PM EDT [facility] RBC Count 5.14 4.60 - 6.10 10*6/uL LAB HEMATOLOGY METHOD 06/14/2025 8:20 PM EDT [facility] HGB 14.5 13.7 - 17.5 g/dL LAB HEMATOLOGY METHOD 06/14/2025 8:20 PM EDT [facility] HCT 43.9 40.0 - 51.0 % LAB HEMATOLOGY METHOD 06/14/2025 8:20 PM EDT [facility] Platelet Count 158 155 - 369 10*3/uL LAB HEMATOLOGY METHOD 06/14/2025 8:20 PM EDT [facility] MCV 85 79 - 98 fL LAB HEMATOLOGY METHOD 06/14/2025 8:20 PM EDT [facility] MCH 28.2 26.0 - 32.0 pg LAB HEMATOLOGY METHOD 06/14/2025 8:20 PM EDT [facility] MCHC 33.0 30.7 - 35.5 g/dL LAB HEMATOLOGY METHOD 06/14/2025 8:20 PM EDT [facility] RDW 14.9(H) 11.5 - 14.5 % LAB HEMATOLOGY METHOD 06/14/2025 8:20 PM EDT [facility] MPV 10.8 8.8 - 12.5 fL LAB HEMATOLOGY METHOD 06/14/2025 8:20 PM EDT [facility] nRBC 0.0 <=0.0 per 100 WBCs LAB HEMATOLOGY METHOD 06/14/2025 8:20 PM EDT [facility] [facility] Blood Arterial blood specimen / Unknown Venipuncture / Unknown 06/14/2025 8:03 PM EDT 06/14/2025 8:11 PM EDT us Phillip Clark MD LAB BLOOD ORDERABLES Final R esult [facility] [address] [place] [address] * (ABNORMAL) Basic metabolic panel (06/14/2025 8:03 PM EDT) Glucose, Plasma 194(H) 74 - 99 mg/dL 06/14/2025 8:40 PM EDT [facility] BUN, Plasma 16 8 - 23 mg/dL 06/14/2025 8:40 PM EDT [facility] Creatinine, Plasma 0.85 0.70 - 1.20 mg/dL 06/14/2025 8:40 PM EDT [facility] BUN/Creatinine Ratio 19 06/14/2025 8:40 PM EDT [facility] Sodium, Plasma 139 136 - 145 mmol/L 06/14/2025 8:40 PM EDT [facility] Potassium, Plasma 5.0(H) 3.6 - 4.9 mmol/L 06/14/2025 8:40 PM EDT [facility] Chloride, Plasma 109(H) 97 - 107 mmol/L 06/14/2025 8:40 PM EDT [facility] CO2, Plasma 20(L) 22 - 29 mmol/L 06/14/2025 8:40 PM EDT [facility] Anion Gap 10 6 - 16 mmol/L 06/14/2025 8:40 PM EDT [facility] Total Calcium, Plasma 8.2(L) 8.9 - 10.2 mg/dL 06/14/2025 8:40 PM EDT [facility] eGFRcr 94.1 mL/min/1.7 3m*2 06/14/2025 8:40 PM EDT [facility] Comment:Reported eGFRcr in m L/min/1.73m2 is based the CKD-EPI 2020 equation that does not use a race coefficient. Blood Arterial blood specimen / Unknown Venipuncture / Unknown 06/14/2025 8:03 PM EDT 06/14/2025 8:11 PM EDT us Phillip Clark MD LAB BLOOD ORDERABLES Final R esult [facility] [address] [place] [address] * (ABNORMAL) Blood gas panel, arterial (06/14/2025 6:47 PM EDT) pH, Arterial 7.30(L) 7.31 - 7.42 LAB HEMATOLOGY METHOD 06/14/2025 6:57 PM EDT [facility] pCO2, Arterial 41 32 - 45 mmHg LAB HEMATOLOGY METHOD 06/14/2025 6:57 PM EDT [facility] pO2, Arterial 70(L) >80 mmHg LAB HEMATOLOGY METHOD 06/14/2025 6:57 PM EDT [facility] SO2, Measured, Arterial 94 94 - 98 % LAB HEMATOLOGY METHOD 06/14/2025 6:57 PM EDT [facility] Base Excess, Arterial -5.6(L) -2.0 - 3.0 mmol/L LAB HEMATOLOGY METHOD 06/14/2025 6:57 PM EDT [facility] Bicarbonate, Calculated, Arterial 21(L) 22 - 26 mmol/L LAB HEMATOLOGY METHOD 06/14/2025 6:57 PM EDT [facility] Hematocrit, Whole Blood 45.5 40.0 - 51.0 % LAB HEMATOLOGY METHOD 06/14/2025 6:57 PM EDT [facility] Sodium, Whole Blood 138 136 - 145 mmol/L LAB HEMATOLOGY METHOD 06/14/2025 6:57 PM EDT [facility] Potassium, Whole Blood 4.4 3.6 - 4.9 mmol/L LAB HEMATOLOGY METHOD 06/14/2025 6:57 PM EDT [facility] Chloride, Whole Blood 109(H) 97 - 107 mmol/L LAB HEMATOLOGY METHOD 06/14/2025 6:57 PM EDT [facility] Glucose, Whole Blood 209(H) 74 - 99 mg/dL LAB HEMATOLOGY METHOD 06/14/2025 6:57 PM EDT [facility] Ionized Calcium, Whole Blood 4.6 4.6 - 5.1 mg/dL LAB HEMATOLOGY METHOD 06/14/2025 6:57 PM EDT [facility] Lactate, Arterial, Whole Blood 3.9(H) 0.5 - 1.6 mmol/L LAB HEMATOLOGY METHOD 06/14/2025 6:57 PM EDT [facility] Blood Arterial blood specimen / Unknown Arterial Puncture / Unknown 06/14/2025 6:47 PM EDT 06/14/2025 6:56 PM EDT us Phillip Clark MD LAB BLOOD ORDERABLES Final R esult [facility] [address] [place] [address] * CO CRITICAL CARE, E/M 30-74 MINUTES (06/14/2025 5:35 [...] LAB HEMATOLOGY METHOD 06/14/2025 4:12 PM EDT [facility] pCO2, Arterial 43 32 - 45 mmHg LAB HEMATOLOGY METHOD 06/14/2025 4:12 PM EDT [facility] pO2, Arterial 126 >80 mmHg LAB HEMATOLOGY METHOD 06/14/2025 4:12 PM EDT [facility] SO2, Measured, Arterial 99(H) 94 - 98 % LAB HEMATOLOGY METHOD 06/14/2025 4:12 PM EDT [facility] Base Excess, Arterial -5.8(L) -2.0 - 3.0 mmol/L LAB HEMATOLOGY METHOD 06/14/2025 4:12 PM EDT [facility] Bicarbonate, Calculated, Arterial 21(L) 22 - 26 mmol/L LAB HEMATOLOGY METHOD 06/14/2025 4:12 PM EDT [facility] Hematocrit, Whole Blood 43.9 40.0 - 51.0 % LAB HEMATOLOGY METHOD 06/14/2025 4:12 PM EDT [facility] Sodium, Whole Blood 139 136 - 145 mmol/L LAB HEMATOLOGY METHOD 06/14/2025 4:12 PM EDT [facility] Potassium, Whole Blood 3.8 3.6 - 4.9 mmol/L LAB HEMATOLOGY METHOD 06/14/2025 4:12 PM EDT [facility] Chloride, Whole Blood 109(H) 97 - 107 mmol/L LAB HEMATOLOGY METHOD 06/14/2025 4:12 PM EDT [facility] Glucose, Whole Blood 179(H) 74 - 99 mg/dL LAB HEMATOLOGY METHOD 06/14/2025 4:12 PM EDT [facility] Ionized Calcium, Whole Blood 4.6 4.6 - 5.1 mg/dL LAB HEMATOLOGY METHOD 06/14/2025 4:12 PM EDT [facility] Lactate, Arterial, Whole Blood 4.3(H) 0.5 - 1.6 mmol/L LAB HEMATOLOGY METHOD 06/14/2025 4:12 PM EDT [facility] Blood Arterial blood specimen / Unknown Arterial Puncture / Unknown 06/14/2025 3:57 PM EDT 06/14/2025 4:11 PM EDT us Phillip Clark MD LAB BLOOD ORDERABLES Final R esult [facility] [address] [place] [address] * (ABNORMAL) Blood gas panel with oximetry, mixed venous (06/14/2025 3:00 PM EDT) pH, Mixed Venous 7.28(L) 7.32 - 7.43 LAB HEMATOLOGY METHOD 06/14/2025 3:24 PM EDT [facility] pCO2, Mixed Venous 47 40 - 55 mmHg LAB HEMATOLOGY METHOD 06/14/2025 3:24 PM EDT [facility] pO2, Mixed Venous 54(H) 25 - 40 mmHg LAB HEMATOLOGY METHOD 06/14/2025 3:24 PM EDT [facility] SO2, Measured, Mixed Venous 84(H) 65 - 80 % LAB HEMATOLOGY METHOD 06/14/2025 3:24 PM EDT [facility] Bicarbonate, Calculated, Mixed Venous 22 22 - 26 mmol/L LAB HEMATOLOGY METHOD 06/14/2025 3:24 PM EDT [facility] Base Excess, Mixed Venous -4.7(L) -2.0 - 3.0 mmol/L LAB HEMATOLOGY METHOD 06/14/2025 3:24 PM EDT [facility] Hematocrit, Whole Blood 43.0 40.0 - 51.0 % LAB HEMATOLOGY METHOD 06/14/2025 3:24 PM EDT [facility] Sodium, Whole Blood 139 136 - 145 mmol/L LAB HEMATOLOGY METHOD 06/14/2025 3:24 PM EDT [facility] Potassium, Whole Blood 3.7 3.6 - 4.9 mmol/L LAB HEMATOLOGY METHOD 06/14/2025 3:24 PM EDT [facility] Chloride, Whole Blood 110(H) 97 - 107 mmol/L LAB HEMATOLOGY METHOD 06/14/2025 3:24 PM EDT [facility] Ionized Calcium, Whole Blood 4.6 4.6 - 5.1 mg/dL LAB HEMATOLOGY METHOD 06/14/2025 3:24 PM EDT [facility] Glucose, Whole Blood 149(H) 74 - 99 mg/dL LAB HEMATOLOGY METHOD 06/14/2025 3:24 PM EDT [facility] Oxyhemoglobin, Mixed Venous, Whole Blood 81.9(H) 40.0 - 70.0 % LAB HEMATOLOGY METHOD 06/14/2025 3:24 PM EDT [facility] Hemoglobin Reduced, Mixed Venous, Whole Blood 16.1 % LAB HEMATOLOGY METHOD 06/14/2025 3:24 PM EDT [facility] Total Hemoglobin, Mixed Venous, Whole Blood 14.0 13.7 - 17.5 g/dL LAB HEMATOLOGY METHOD 06/14/2025 3:24 PM EDT [facility] Blood Mixed venous blood specimen / Unknown Venipuncture / Unknown 06/14/2025 3:00 PM EDT 06/14/2025 3:23 PM EDT us Phillip Clark MD LAB BLOOD ORDERABLES Final R esult [facility] [address] [place] [address] * XR Abdomen 1 View (06/14/2025 2:57 [...] Detected Not Detected 06/15/2025 12:46 PM EDT [facility] Swab (Axilla and Groin) Non-blood Collection / Unknown 06/14/2025 2:37 PM EDT 06/14/2025 3:10 PM EDT Narrative [facility] - 06/15/2025 12:46 PM EDT This PCR assay was developed and its performance characteristics determined by [facility] as appropriate for clinical purposes. This assay has not been cleared or approved by the FDA, but is performed in a CLIA regulated laboratory that is qualified to perform high-complexity testing. us Phillip Clark MD LAB MICROBIOLOGY - GENERAL O RDERABLES Final Result [facility] [address] [place] [address] * Multi Drug Resistance Test (06/14/2025 2:37 PM EDT) Culture No growth at day 1 06/15/2025 4:03 PM EDT [facility] Swab (Nares and Smita Rectal) Non-blood Collection / Unknown 06/14/2025 2:37 PM EDT 06/14/2025 3:10 PM EDT Narrative [facility] - 06/15/2025 4:03 PM EDT This test was developed and its performance characteristics determined by the [facility]. Although the media is FDA-approved, it is not FDA-approved for all specimen types submitted. The FDA has determined that such clearance or approval is not necessary. This test is used for surveillance purposes. It should not be regarded as investigational or for research. The [facility] is certified under the Clinical Laboratory Improvement Amendments of 1988 (CLIA-88) as qualified to perform high complexity clinical laboratory testing. Phillip Clark MD LAB MICROBIOLOGY - GENERAL O RDERABLES Final Result [facility] [address] [place] [address] * (ABNORMAL) Blood gas, arterial (06/14/2025 2:37 PM EDT) pH, Arterial 7.31 7.31 - 7.42 LAB HEMATOLOGY METHOD 06/14/2025 2:58 PM EDT [facility] pCO2, Arterial 42 32 - 45 mmHg LAB HEMATOLOGY METHOD 06/14/2025 2:58 PM EDT [facility] pO2, Arterial 154 >80 mmHg LAB HEMATOLOGY METHOD 06/14/2025 2:58 PM EDT [facility] SO2, Measured, Arterial 100(H) 94 - 98 % LAB HEMATOLOGY METHOD 06/14/2025 2:58 PM EDT [facility] Base Excess, Arterial -5.1(L) -2.0 - 3.0 mmol/L LAB HEMATOLOGY METHOD 06/14/2025 2:58 PM EDT [facility] Bicarbonate, Calculated, Arterial 21(L) 22 - 26 mmol/L LAB HEMATOLOGY METHOD 06/14/2025 2:58 PM EDT [facility] Hematocrit, Whole Blood 43.5 40.0 - 51.0 % LAB HEMATOLOGY METHOD 06/14/2025 2:58 PM EDT [facility] Sodium, Whole Blood 139 136 - 145 mmol/L LAB HEMATOLOGY METHOD 06/14/2025 2:58 PM EDT [facility] Potassium, Whole Blood 3.6 3.6 - 4.9 mmol/L LAB HEMATOLOGY METHOD 06/14/2025 2:58 PM EDT [facility] Chloride, Whole Blood 110(H) 97 - 107 mmol/L LAB HEMATOLOGY METHOD 06/14/2025 2:58 PM EDT [facility] Glucose, Whole Blood 131(H) 74 - 99 mg/dL LAB HEMATOLOGY METHOD 06/14/2025 2:58 PM EDT [facility] Ionized Calcium, Whole Blood 4.7 4.6 - 5.1 mg/dL LAB HEMATOLOGY METHOD 06/14/2025 2:58 PM EDT [facility] Lactate, Arterial, Whole Blood 5.0(H) 0.5 - 1.6 mmol/L LAB HEMATOLOGY METHOD 06/14/2025 2:58 PM EDT [facility] Blood Arterial blood specimen / Unknown Arterial Puncture / Unknown 06/14/2025 2:37 PM EDT 06/14/2025 2:57 PM EDT us Phillip Clark MD LAB BLOOD ORDERABLES Final R esult [facility] [address] [place] [address] * ECG Adult - Upon Admissoin to CVICU (06/14/2025 2:36 PM EDT) EKG DIAGNOSIS CLASS Abnormal MUSE ECG Ventricular Rate 61 BPM MUSE ECG Atrial Rate 61 BPM MUSE ECG CO Interval 176 ms MUSE ECG QRSD Interval 154 ms MUSE ECG QT Interval 520 ms MUSE ECG QTC Interval 523 ms MUSE ECG P [place] 58 degrees MUSE ECG R [place] 113 degrees MUSE ECG T Wave [place] -67 degrees MUSE ECG Diagnosis Sinus rhythm [...] ECG ORDERABLES Final Result Performing Organization Address [facility]/ZIP Co de Phone Number MUSE ECG * Potassium, Plasma (06/14/2025 2:36 PM EDT) Potassium, Plasma 3.8 3.6 - 4.9 mmol/L 06/14/2025 4:13 PM EDT [facility] Comment:Hemolyzed, result ma y be falsely increased. Blood Venous blood specimen / Unknown Venipuncture / Unknown 06/14/2025 2:36 PM EDT 06/14/2025 3:20 PM EDT Phillip Clark MD LAB BLOOD ORDERABLES Final R esult Performing Organization Address [facility] Co de Phone Number [facility] [address] [place] [address] * Hematocrit (06/14/2025 2:36 PM EDT) HCT 42.6 40.0 - 51.0 % LAB HEMATOLOGY METHOD 06/14/2025 4:38 PM EDT [facility] Blood Venous blood specimen / Unknown Venipuncture / Unknown 06/14/2025 2:36 PM EDT 06/14/2025 4:17 PM EDT Phillip Clark MD LAB BLOOD ORDERABLES Final R esult Performing Organization Address [facility] Co de Phone Number [facility] [address] [place] [address] * Hemoglobin (06/14/2025 2:36 PM EDT) HGB 13.9 13.7 - 17.5 g/dL LAB HEMATOLOGY METHOD 06/14/2025 4:38 PM EDT [facility] Blood Venous blood specimen / Unknown Venipuncture / Unknown 06/14/2025 2:36 PM EDT 06/14/2025 4:17 PM EDT Phillip Clark MD LAB BLOOD ORDERABLES Final R esult Performing Organization Address City/[facility]/ZIP Co de Phone Number [facility] [address] [place] [address] * APTT (06/14/2025 2:36 PM EDT) aPTT 29 25 - 35 sec LAB COAGULATION METHOD 06/14/2025 4:11 PM EDT [facility] Blood Venous blood specimen / Unknown Venipuncture / Unknown 06/14/2025 2:36 PM EDT 06/14/2025 3:18 PM EDT Phillip Clark MD LAB BLOOD ORDERABLES Final R esult Performing Organization Address [facility] Co de Phone Number [facility] [address] [place] [address] * (ABNORMAL) Protime-INR (06/14/2025 2:36 PM EDT) Prothrombin Time 16.6(H) 12.0 - 14.3 sec LAB COAGULATION METHOD 06/14/2025 4:11 PM EDT [facility] INR 1.3(H) 0.9 - 1.1 LAB COAGULATION METHOD 06/14/2025 4:11 PM EDT [facility] Blood Venous blood specimen / Unknown Venipuncture / Unknown 06/14/2025 2:36 PM EDT 06/14/2025 3:18 PM EDT Narrative [facility] - 06/14/2025 4:11 PM EDT OPTIMAL INR RANGES FOR PATIENT ON ORAL ANTICOAGULANT THERAPY Prevention of venous thromboembolism INR 2.0 to 3.0 In patients with heart disease: Atrial fibrillation INR 2.0 to 3.0 Valvular heart disease INR 2.0 to 3.0 Tissue heart valves INR 2.0 to 3.0 Mechanical prosthetic valves INR 2.5 to 3.5 Prevention of recurrent OH INR 2.5 to 3.5 Phillip Clark MD LAB BLOOD ORDERABLES Final R esult Performing Organization Address [facility]/ZIP Co de Phone Number [facility] [address] [place] [address] * (ABNORMAL) Phosphorus (06/14/2025 2:36 PM EDT) Phosphorus, Plasma 2.3(L) 2.5 - 4.5 mg/dL 06/14/2025 4:13 PM EDT [facility] Blood Venous blood specimen / Unknown Venipuncture / Unknown 06/14/2025 2:36 PM EDT 06/14/2025 3:20 PM EDT Phillip Clark MD LAB BLOOD ORDERABLES Final R esult Performing Organization Address [facility] Co de Phone Number [facility] [address] [place] [address] * (ABNORMAL) Magnesium (06/14/2025 2:36 PM EDT) Pathologist [facility] Magnesium, Plasma 3.2(H) 1.9 - 2.4 mg/dL 06/14/2025 6:55 PM EDT [facility] Blood Venous blood specimen / Unknown Venipuncture / Unknown 06/14/2025 2:36 PM EDT 06/14/2025 3:20 PM EDT Phillip Clark MD LAB BLOOD ORDERABLES Final R esult Performing Organization Address [facility] Co de Phone Number [facility] [address] [place] [address] * (ABNORMAL) Basic metabolic panel (06/14/2025 2:36 PM EDT) Glucose, Plasma 134(H) 74 - 99 mg/dL 06/14/2025 4:13 PM EDT [facility] BUN, Plasma 14 8 - 23 mg/dL 06/14/2025 4:13 PM EDT [facility] Creatinine, Plasma 0.83 0.70 - 1.20 mg/dL 06/14/2025 4:13 PM EDT [facility] BUN/Creatinine Ratio 17 06/14/2025 4:13 PM EDT [facility] Sodium, Plasma 140 136 - 145 mmol/L 06/14/2025 4:13 PM EDT [facility] Potassium, Plasma 3.8 3.6 - 4.9 mmol/L 06/14/2025 4:13 PM EDT [facility] Comment:Hemolyzed, result ma y be falsely increased. Chloride, Plasma 108(H) 97 - 107 mmol/L 06/14/2025 4:13 PM EDT [facility] CO2, Plasma 19(L) 22 - 29 mmol/L 06/14/2025 4:13 PM EDT [facility] Anion Gap 13 6 - 16 mmol/L 06/14/2025 4:13 PM EDT [facility] Total Calcium, Plasma 8.3(L) 8.9 - 10.2 mg/dL 06/14/2025 4:13 PM EDT [facility] eGFRcr 94.7 mL/min/1.7 3m*2 06/14/2025 4:13 PM EDT [facility] Comment:Reported eGFRcr in m L/min/1.73m2 is based the CKD-EPI 2020 equation that does not use a race coefficient. Blood Venous blood specimen / Unknown Venipuncture / Unknown 06/14/2025 2:36 PM EDT 06/14/2025 3:20 PM EDT us Phillip Clark MD LAB BLOOD ORDERABLES Final R esult [facility] [address] [place] [address] * (ABNORMAL) CBC (06/14/2025 2:36 PM EDT) WBC Count 15.83(H) 3.70 - 10.30 10*3/uL LAB HEMATOLOGY METHOD 06/14/2025 4:38 PM EDT [facility] RBC Count 4.98 4.60 - 6.10 10*6/uL LAB HEMATOLOGY METHOD 06/14/2025 4:38 PM EDT [facility] HGB 13.9 13.7 - 17.5 g/dL LAB HEMATOLOGY METHOD 06/14/2025 4:38 PM EDT [facility] HCT 42.6 40.0 - 51.0 % LAB HEMATOLOGY METHOD 06/14/2025 4:38 PM EDT [facility] Platelet Count 160 155 - 369 10*3/uL LAB HEMATOLOGY METHOD 06/14/2025 4:38 PM EDT [facility] MCV 86 79 - 98 fL LAB HEMATOLOGY METHOD 06/14/2025 4:38 PM EDT [facility] MCH 27.9 26.0 - 32.0 pg LAB HEMATOLOGY METHOD 06/14/2025 4:38 PM EDT [facility] MCHC 32.6 30.7 - 35.5 g/dL LAB HEMATOLOGY METHOD 06/14/2025 4:38 PM EDT [facility] RDW 15.2(H) 11.5 - 14.5 % LAB HEMATOLOGY METHOD 06/14/2025 4:38 PM EDT [facility] MPV 10.3 8.8 - 12.5 fL LAB HEMATOLOGY METHOD 06/14/2025 4:38 PM EDT [facility] nRBC 0.0 <=0.0 per 100 WBCs LAB HEMATOLOGY METHOD 06/14/2025 4:38 PM EDT [facility] Blood Venous blood specimen / Unknown Venipuncture / Unknown 06/14/2025 2:36 PM EDT 06/14/2025 4:17 PM EDT us Phillip Clark MD LAB BLOOD ORDERABLES Final R esult [facility] [address] [place] [address] * (ABNORMAL) POCT arterial blood gas gem (06/14/2025 2:00 PM EDT) pH, Arterial 7.35 7.31 - 7.42 06/14/2025 2:02 PM EDT [facility] pCO2, Arterial 38 32 - 45 mm Hg 06/14/2025 2:02 PM EDT [facility] pO2, Arterial 376 >80 mm Hg 06/14/2025 2:02 PM EDT [facility] SO2, Arterial 100(H) 94 - 98 % 06/14/2025 2:02 PM EDT [facility] Base Excess, Arterial -4.2(L) -2 - 3 mmol/L 06/14/2025 2:02 PM EDT [facility] HCO3, Arterial 21.0(L) 22 - 26 mmol/L 06/14/2025 2:02 PM EDT [facility] Total Hemoglobin, Arterial, Whole Blood 14.5 13.7 - 17.5 g/dL 06/14/2025 2:02 PM EDT [facility] Hematocrit, Arterial 44.0 40 - 51.0 % 06/14/2025 2:02 PM EDT [facility] Sodium, Arterial 136 136 - 145 mmol/L 06/14/2025 2:02 PM EDT [facility] Potassium, Arterial 3.4(L) 3.6 - 4.9 mmol/L 06/14/2025 2:02 PM EDT [facility] Chloride, Whole Blood 105 97 - 107 mmol/L 06/14/2025 2:02 PM EDT [facility] Glucose, Arterial 138(H) 74 - 99 mg/dL 06/14/2025 2:02 PM EDT [facility] Ionized Calcium, Arterial 4.9 4.6 - 5.1 mg/dL 06/14/2025 2:02 PM EDT [facility] Lactate, Arterial 4.2(H) 0.5 - 1.6 mmol/L 06/14/2025 2:02 PM EDT [facility] Body Temperature 37.0 Celsius 06/14/2025 2:02 PM EDT [facility] pH, Temp Corrected, Arterial 7.35 7.31 - 7.42 06/14/2025 2:02 PM EDT [facility] pCO2, Temp Corrected, Arterial 38 32 - 45 mm Hg 06/14/2025 2:02 PM EDT [facility] pO2, Temp Corrected, Arterial 376 >80 mm Hg 06/14/2025 2:02 PM EDT [facility] Window Draper ID Ricki Zamarripa 06/14/2025 2:02 PM EDT [facility] Blood Whole blood specimen / Unknown 06/14/2025 2:00 PM EDT 06/14/2025 2:02 PM EDT Phillip Clark MD LAB POINT OF CARE TE ST DOCKED DEVICE UNSOLICITED RESULTS Final Result [facility] [address] [place] [address] * (ABNORMAL) POCT arterial blood gas gem (06/14/2025 1:22 PM EDT) pH, Arterial 7.34 7.31 - 7.42 06/14/2025 1:23 PM EDT [facility] pCO2, Arterial 41 32 - 45 mm Hg 06/14/2025 1:23 PM EDT [facility] pO2, Arterial 518 >80 mm Hg 06/14/2025 1:23 PM EDT [facility] SO2, Arterial 100(H) 94 - 98 % 06/14/2025 1:23 PM EDT [facility] Base Excess, Arterial -3.5(L) -2 - 3 mmol/L 06/14/2025 1:23 PM EDT [facility] HCO3, Arterial 22.1 22 - 26 mmol/L 06/14/2025 1:23 PM EDT [facility] Total Hemoglobin, Arterial, Whole Blood 13.2(L) 13.7 - 17.5 g/dL 06/14/2025 1:23 PM EDT [facility] Hematocrit, Arterial 40.0 40 - 51.0 % 06/14/2025 1:23 PM EDT [facility] Sodium, Arterial 139 136 - 145 mmol/L 06/14/2025 1:23 PM EDT [facility] Potassium, Arterial 3.3(L) 3.6 - 4.9 mmol/L 06/14/2025 1:23 PM EDT [facility] Chloride, Whole Blood 104 97 - 107 mmol/L 06/14/2025 1:23 PM EDT [facility] Glucose, Arterial 137(H) 74 - 99 mg/dL 06/14/2025 1:23 PM EDT [facility] Ionized Calcium, Arterial 4.2(L) 4.6 - 5.1 mg/dL 06/14/2025 1:23 PM EDT [facility] Lactate, Arterial 3.0(H) 0.5 - 1.6 mmol/L 06/14/2025 1:23 PM EDT [facility] Body Temperature 37.0 Celsius 06/14/2025 1:23 PM EDT [facility] pH, Temp Corrected, Arterial 7.34 7.31 - 7.42 06/14/2025 1:23 PM EDT [facility] pCO2, Temp Corrected, Arterial 41 32 - 45 mm Hg 06/14/2025 1:23 PM EDT [facility] pO2, Temp Corrected, Arterial 518 >80 mm Hg 06/14/2025 1:23 PM EDT [facility] Window Draper ID Ricki [email or web address] 06/14/2025 1:23 PM EDT [facility] Blood Whole blood specimen / Unknown 06/14/2025 1:22 PM EDT 06/14/2025 1:23 PM EDT Phillip Clark MD LAB POINT OF CARE TE ST DOCKED DEVICE UNSOLICITED RESULTS Final Result Performing Organization Address City/State/[facility] Co de Phone Number [facility] [address] [place] [address] * (ABNORMAL) POCT arterial blood gas gem (06/14/2025 12:52 PM EDT) pH, Arterial 7.40 7.31 - 7.42 06/14/2025 12:54 PM EDT [facility] pCO2, Arterial 35 32 - 45 mm Hg 06/14/2025 12:54 PM EDT [facility] pO2, Arterial 399 >80 mm Hg 06/14/2025 12:54 PM EDT [facility] SO2, Arterial 100(H) 94 - 98 % 06/14/2025 12:54 PM EDT [facility] Base Excess, Arterial -2.6(L) -2 - 3 mmol/L 06/14/2025 12:54 PM EDT [facility] HCO3, Arterial 21.7(L) 22 - 26 mmol/L 06/14/2025 12:54 PM EDT [facility] Total Hemoglobin, Arterial, Whole Blood 11.7(L) 13.7 - 17.5 g/dL 06/14/2025 12:54 PM EDT [facility] Hematocrit, Arterial 35.0(L) 40 - 51.0 % 06/14/2025 12:54 PM EDT [facility] Sodium, Arterial 134(L) 136 - 145 mmol/L 06/14/2025 12:54 PM EDT [facility] Potassium, Arterial 4.2 3.6 - 4.9 mmol/L 06/14/2025 12:54 PM EDT [facility] Chloride, Whole Blood 107 97 - 107 mmol/L 06/14/2025 12:54 PM EDT [facility] Glucose, Arterial 148(H) 74 - 99 mg/dL 06/14/2025 12:54 PM EDT [facility] Ionized Calcium, Arterial 4.1(L) 4.6 - 5.1 mg/dL 06/14/2025 12:54 PM EDT [facility] Lactate, Arterial 2.2(H) 0.5 - 1.6 mmol/L 06/14/2025 12:54 PM EDT [facility] Body Temperature 37.0 Celsius 06/14/2025 12:54 PM EDT [facility] pH, Temp Corrected, Arterial 7.40 7.31 - 7.42 06/14/2025 12:54 PM EDT [facility] pCO2, Temp Corrected, Arterial 35 32 - 45 mm Hg 06/14/2025 12:54 PM EDT [facility] pO2, Temp Corrected, Arterial 399 >80 mm Hg 06/14/2025 12:54 PM EDT [facility] Window Draper ID Jean Claude Staley 06/14/2025 12:54 PM EDT [facility] Blood Whole blood specimen / Unknown 06/14/2025 12:52 PM EDT 06/14/2025 12:54 PM EDT Phillip Clark MD LAB POINT OF CARE TE ST DOCKED DEVICE UNSOLICITED RESULTS Final Result [facility] [address] [place] [address] * POCT ACT (06/14/2025 12:43 PM EDT) ACT+ (HIGH RANGE) 98 68 - 600 Seconds 06/14/2025 12:49 PM EDT [facility] Window Draper ID Vick Dupont 06/14/2025 12:49 PM EDT [facility] ACT Device ID [id number] 06/14/2025 12:49 PM EDT [facility] Comment 06/14/2025 12:49 PM EDT [facility] Comment: ACT performed by [...] ST DOCKED DEVICE UNSOLICITED RESULTS Final Result [facility] [address] LAB [address] [place] [address] * (ABNORMAL) POCT arterial blood gas gem (06/14/2025 12:16 PM EDT) pH, Arterial 7.42 7.31 - 7.42 06/14/2025 12:19 PM EDT [facility] pCO2, Arterial 36 32 - 45 mm Hg 06/14/2025 12:19 PM EDT [facility] pO2, Arterial 358 >80 mm Hg 06/14/2025 12:19 PM EDT [facility] SO2, Arterial 99(H) 94 - 98 % 06/14/2025 12:19 PM EDT [facility] Base Excess, Arterial -0.8 -2 - 3 mmol/L 06/14/2025 12:19 PM EDT [facility] HCO3, Arterial 23.4 22 - 26 mmol/L 06/14/2025 12:19 PM EDT [facility] Total Hemoglobin, Arterial, Whole Blood 11.3(L) 13.7 - 17.5 g/dL 06/14/2025 12:19 PM EDT [facility] Hematocrit, Arterial 34.0(L) 40 - 51.0 % 06/14/2025 12:19 PM EDT [facility] Sodium, Arterial 134(L) 136 - 145 mmol/L 06/14/2025 12:19 PM EDT [facility] Potassium, Arterial 5.7(H) 3.6 - 4.9 mmol/L 06/14/2025 12:19 PM EDT [facility] Chloride, Whole Blood 105 97 - 107 mmol/L 06/14/2025 12:19 PM EDT [facility] Glucose, Arterial 119(H) 74 - 99 mg/dL 06/14/2025 12:19 PM EDT [facility] Ionized Calcium, Arterial 4.0(L) 4.6 - 5.1 mg/dL 06/14/2025 12:19 PM EDT [facility] Lactate, Arterial 1.6 0.5 - 1.6 mmol/L 06/14/2025 12:19 PM EDT [facility] Body Temperature 37.0 Celsius 06/14/2025 12:19 PM EDT [facility] pH, Temp Corrected, Arterial 7.42 7.31 - 7.42 06/14/2025 12:19 PM EDT [facility] pCO2, Temp Corrected, Arterial 36 32 - 45 mm Hg 06/14/2025 12:19 PM EDT [facility] pO2, Temp Corrected, Arterial 358 >80 mm Hg 06/14/2025 12:19 PM EDT [facility] Window Draper ID Vick Dupont 06/14/2025 12:19 PM EDT [facility] Blood Whole blood specimen / Unknown 06/14/2025 12:16 PM EDT 06/14/2025 12:19 PM EDT us Phillip Clark MD LAB POINT OF CARE TE ST DOCKED DEVICE UNSOLICITED RESULTS Final Result Performing Organization Address City/State/[facility] Co de Phone Number [facility] [address] [place] [phone] * (ABNORMAL) POCT arterial blood gas gem (06/14/2025 12:06 PM EDT) pH, Arterial 7.39 7.31 - 7.42 06/14/2025 12:09 PM EDT [facility] pCO2, Arterial 40 32 - 45 mm Hg 06/14/2025 12:09 PM EDT [facility] pO2, Arterial 378 >80 mm Hg 06/14/2025 12:09 PM EDT [facility] SO2, Arterial 100(H) 94 - 98 % 06/14/2025 12:09 PM EDT [facility] Base Excess, Arterial -0.7 -2 - 3 mmol/L 06/14/2025 12:09 PM EDT [facility] HCO3, Arterial 24.2 22 - 26 mmol/L 06/14/2025 12:09 PM EDT [facility] Total Hemoglobin, Arterial, Whole Blood 11.5(L) 13.7 - 17.5 g/dL 06/14/2025 12:09 PM EDT [facility] Hematocrit, Arterial 35.0(L) 40 - 51.0 % 06/14/2025 12:09 PM EDT [facility] Sodium, Arterial 134(L) 136 - 145 mmol/L 06/14/2025 12:09 PM EDT [facility] Potassium, Arterial 5.0(H) 3.6 - 4.9 mmol/L 06/14/2025 12:09 PM T [facility] Chloride, Whole Blood 105 97 - 107 mmol/L 06/14/2025 12:09 PM T [facility] Glucose, Arterial 123(H) 74 - 99 mg/dL 06/14/2025 12:09 PM T [facility] Ionized Calcium, Arterial 4.2(L) 4.6 - 5.1 mg/dL 06/14/2025 12:09 PM T [facility] Lactate, Arterial 1.2 0.5 - 1.6 mmol/L 06/14/2025 12:09 PM T [facility] Body Temperature 37.0 Celsius 06/14/2025 12:09 PM T [facility] pH, Temp Corrected, Arterial 7.39 7.31 - 7.42 06/14/2025 12:09 PM T [facility] pCO2, Temp Corrected, Arterial 40 32 - 45 mm Hg 06/14/2025 12:09 PM T [facility] pO2, Temp Corrected, Arterial 378 >80 mm Hg 06/14/2025 12:09 PM EDT [facility] Window Draper ID Vick Dupont 06/14/2025 12:09 PM T [facility] Blood Whole blood specimen / Unknown 06/14/2025 12:06 PM EDT 06/14/2025 12:09 PM EDT us Phillip Clark MD LAB POINT OF CARE TE ST DOCKED DEVICE UNSOLICITED RESULTS Final Result Performing Organization Address [facility] Co de Phone Number [facility] [address] [place] [address] * (ABNORMAL) QPLUS (06/14/2025 11:55 AM EDT) [...] 06/14/2025 12:12 PM EDT [facility] Window Draper ID Ricki Zamarripa 06/14/2025 12:12 PM EDT [facility] Device ID [id number] 06/14/2025 12:12 PM EDT [facility] Whole Blood 06/14/2025 11:5 5 AM EDT 06/14/2025 12:12 PM EDT Narrative [facility] - 06/14/2025 12:[address]: No Clot Detected Phillip Clark MD LAB POINT OF CARE TE ST DOCKED DEVICE UNSOLICITED RESULTS Final Result [facility] [address] [place] [address] * POCT ACT (06/14/2025 11:54 AM EDT) ACT+ (HIGH RANGE) 510 68 - 600 Seconds 06/14/2025 12:07 PM EDT [facility] Window Draper ID Vick Dupont 06/14/2025 12:07 PM EDT [facility] ACT Device ID [id number] 06/14/2025 12:07 PM EDT [facility] Comment 06/14/2025 12:07 PM EDT [facility] Comment: ACT performed by [...] ST DOCKED DEVICE UNSOLICITED RESULTS Final Result [facility] [address] LAB [address] [place] [address] * (ABNORMAL) POCT arterial blood gas gem (06/14/2025 11:33 AM EDT) pH, Arterial 7.37 7.31 - 7.42 06/14/2025 11:35 AM EDT [facility] pCO2, Arterial 43 32 - 45 mm Hg 06/14/2025 11:35 AM EDT [facility] pO2, Arterial 380 >80 mm Hg 06/14/2025 11:35 AM EDT [facility] SO2, Arterial 99(H) 94 - 98 % 06/14/2025 11:35 AM EDT [facility] Base Excess, Arterial -0.5 -2 - 3 mmol/L 06/14/2025 11:35 AM EDT [facility] HCO3, Arterial 24.9 22 - 26 mmol/L 06/14/2025 11:35 AM EDT [facility] Total Hemoglobin, Arterial, Whole Blood 11.5(L) 13.7 - 17.5 g/dL 06/14/2025 11:35 AM EDT [facility] Hematocrit, Arterial 35.0(L) 40 - 51.0 % 06/14/2025 11:35 AM EDT [facility] Sodium, Arterial 134(L) 136 - 145 mmol/L 06/14/2025 11:35 AM EDT [facility] Potassium, Arterial 5.6(H) 3.6 - 4.9 mmol/L 06/14/2025 11:35 AM EDT [facility] Chloride, Whole Blood 103 97 - 107 mmol/L 06/14/2025 11:35 AM EDT [facility] Glucose, Arterial 123(H) 74 - 99 mg/dL 06/14/2025 11:35 AM EDT [facility] Ionized Calcium, Arterial 4.2(L) 4.6 - 5.1 mg/dL 06/14/2025 11:35 AM EDT [facility] Lactate, Arterial 1.0 0.5 - 1.6 mmol/L 06/14/2025 11:35 AM EDT [facility] Body Temperature 37.0 Celsius 06/14/2025 11:35 AM EDT [facility] pH, Temp Corrected, Arterial 7.37 7.31 - 7.42 06/14/2025 11:35 AM EDT [facility] pCO2, Temp Corrected, Arterial 43 32 - 45 mm Hg 06/14/2025 11:35 AM EDT [facility] pO2, Temp Corrected, Arterial 380 >80 mm Hg 06/14/2025 11:35 AM EDT [facility] Window Draper ID Vick Dupont 06/14/2025 11:35 AM EDT [facility] Blood Whole blood specimen / Unknown 06/14/2025 11:33 AM EDT 06/14/2025 11:35 AM EDT us Phillip Clark MD LAB POINT OF CARE TE ST DOCKED DEVICE UNSOLICITED RESULTS Final Result Performing Organization Address City/State/[facility] Co de Phone Number [facility] [address] [place] [address] * POCT ACT (06/14/2025 11:24 AM EDT) [facility] Signature ACT+ (HIGH RANGE) 520 68 - 600 Seconds 06/14/2025 11:37 AM EDT [facility] Window Draper ID Vick Dupont 06/14/2025 11:37 AM EDT [facility] ACT Device ID [id number] 06/14/2025 11:37 AM EDT [facility] Comment 06/14/2025 11:37 AM EDT [facility] Comment: ACT performed by [...] ST DOCKED DEVICE UNSOLICITED RESULTS Final Result [facility] [address] [place] [address] * (ABNORMAL) POCT arterial blood gas gem (06/14/2025 11:03 AM EDT) pH, Arterial 7.40 7.31 - 7.42 06/14/2025 11:04 AM EDT [facility] pCO2, Arterial 41 32 - 45 mm Hg 06/14/2025 11:04 AM EDT [facility] pO2, Arterial 406 >80 mm Hg 06/14/2025 11:04 AM EDT [facility] SO2, Arterial 100(H) 94 - 98 % 06/14/2025 11:04 AM EDT [facility] Base Excess, Arterial 0.5 -2 - 3 mmol/L 06/14/2025 11:04 AM EDT [facility] HCO3, Arterial 25.4 22 - 26 mmol/L 06/14/2025 11:04 AM EDT [facility] Total Hemoglobin, Arterial, Whole Blood 11.9(L) 13.7 - 17.5 g/dL 06/14/2025 11:04 AM EDT [facility] Hematocrit, Arterial 36.0(L) 40 - 51.0 % 06/14/2025 11:04 AM EDT [facility] Sodium, Arterial 133(L) 136 - 145 mmol/L 06/14/2025 11:04 AM EDT [facility] Potassium, Arterial 5.3(H) 3.6 - 4.9 mmol/L 06/14/2025 11:04 AM EDT [facility] Chloride, Whole Blood 103 97 - 107 mmol/L 06/14/2025 11:04 AM EDT [facility] Glucose, Arterial 121(H) 74 - 99 mg/dL 06/14/2025 11:04 AM EDT [facility] Ionized Calcium, Arterial 4.2(L) 4.6 - 5.1 mg/dL 06/14/2025 11:04 AM EDT [facility] Lactate, Arterial 1.0 0.5 - 1.6 mmol/L 06/14/2025 11:04 AM EDT [facility] Body Temperature 37.0 Celsius 06/14/2025 11:04 AM EDT [facility] pH, Temp Corrected, Arterial 7.40 7.31 - 7.42 06/14/2025 11:04 AM EDT [facility] pCO2, Temp Corrected, Arterial 41 32 - 45 mm Hg 06/14/2025 11:04 AM EDT [facility] pO2, Temp Corrected, Arterial 406 >80 mm Hg 06/14/2025 11:04 AM EDT [facility] Window Draper ID Vick Dupont 06/14/2025 11:04 AM EDT [facility] Blood Whole blood specimen / Unknown 06/14/2025 11:03 AM EDT 06/14/2025 11:04 AM EDT us Phillip Clark MD LAB POINT OF CARE TE ST DOCKED DEVICE UNSOLICITED RESULTS Final Result Performing Organization Address City/State/[facility] Co de Phone Number [facility] [address] [place] [address] * POCT ACT (06/14/2025 10:57 AM EDT) ACT+ (HIGH RANGE) 569 68 - 600 Seconds 06/14/2025 11:09 AM EDT [facility] Window Draper ID Vick Dupont 06/14/2025 11:09 AM EDT [facility] ACT Device ID [id number] 06/14/2025 11:09 AM EDT [facility] Comment 06/14/2025 11:09 AM EDT [facility] Comment: ACT performed by [...] ST DOCKED DEVICE UNSOLICITED RESULTS Final Result [facility] [address] LAB [address] [place] [address] * (ABNORMAL) POCT arterial blood gas gem (06/14/2025 10:33 AM EDT) pH, Arterial 7.39 7.31 - 7.42 06/14/2025 10:34 AM EDT [facility] pCO2, Arterial 41 32 - 45 mm Hg 06/14/2025 10:34 AM EDT [facility] pO2, Arterial 349 >80 mm Hg 06/14/2025 10:34 AM EDT [facility] SO2, Arterial 99(H) 94 - 98 % 06/14/2025 10:34 AM EDT [facility] Base Excess, Arterial -0.2 -2 - 3 mmol/L 06/14/2025 10:34 AM EDT [facility] HCO3, Arterial 24.8 22 - 26 mmol/L 06/14/2025 10:34 AM EDT [facility] Total Hemoglobin, Arterial, Whole Blood 10.9(L) 13.7 - 17.5 g/dL 06/14/2025 10:34 AM EDT [facility] Hematocrit, Arterial 33.0(L) 40 - 51.0 % 06/14/2025 10:34 AM EDT [facility] Sodium, Arterial 135(L) 136 - 145 mmol/L 06/14/2025 10:34 AM EDT [facility] Potassium, Arterial 4.8 3.6 - 4.9 mmol/L 06/14/2025 10:34 AM EDT [facility] Chloride, Whole Blood 103 97 - 107 mmol/L 06/14/2025 10:34 AM EDT [facility] Glucose, Arterial 116(H) 74 - 99 mg/dL 06/14/2025 10:34 AM EDT [facility] Ionized Calcium, Arterial 4.1(L) 4.6 - 5.1 mg/dL 06/14/2025 10:34 AM EDT [facility] Lactate, Arterial 1.3 0.5 - 1.6 mmol/L 06/14/2025 10:34 AM EDT [facility] Body Temperature 37.0 Celsius 06/14/2025 10:34 AM EDT [facility] pH, Temp Corrected, Arterial 7.39 7.31 - 7.42 06/14/2025 10:34 AM EDT [facility] pCO2, Temp Corrected, Arterial 41 32 - 45 mm Hg 06/14/2025 10:34 AM EDT [facility] pO2, Temp Corrected, Arterial 349 >80 mm Hg 06/14/2025 10:34 AM EDT [facility] Window Draper ID Vick Dupont 06/14/2025 10:34 AM EDT [facility] Blood Whole blood specimen / Unknown 06/14/2025 10:33 AM EDT 06/14/2025 10:34 AM EDT Phillip Clark MD LAB POINT OF CARE TE ST DOCKED DEVICE UNSOLICITED RESULTS Final Result [facility] [address] [place] [address] * (ABNORMAL) POCT ACT (06/14/2025 10:26 AM EDT) ACT+ (HIGH RANGE) >600(H) 68 - 600 Seconds 06/14/2025 10:40 AM EDT [facility] Window Draper ID Vick Dupont 06/14/2025 10:40 AM EDT [facility] ACT Device ID [id number] 06/14/2025 10:40 AM EDT [facility] Comment 06/14/2025 10:40 AM EDT [facility] Comment: ACT performed by [...] UNSOLICITED RESULTS Final Result Performing Organization Address City/[facility]/ZIP Co de Phone Number [facility] [address] LAB [address] [place] [address] * Surgical Pathology Exam (06/14/2025 10:18 AM EDT) Case Report Surgical Pathology Case: [id number] Authorizing Provider: Phillip Clark MD Collected: 06/14/2025 1018 Ordering Location: [facility] Received: 06/14/2025 1413 Pathologist: Beth Lake MD Specimen: Heart, aortic valve leaflets 06/15/2025 11:44 AM EDT [facility] Final Diagnosis A. AORTIC VALVE LEAFLETS, REPLACEMENT: - FIBROSIS AND MYXOID DEGENERATION. 06/15/2025 11:44 AM EDT [facility] at 1144 EDT Clinical Information Severe aortic regurgitation [I35.1] 06/15/2025 11:44 AM EDT [facility] Gross Description A. AORTIC VALVE LEAFLETS Received fresh and placed in formalin labeled aortic valve leaflets are 2 white-montez soft cardiac leaflets ranging in size from 2.5-4.0 cm in greatest dimension. Assisted Living Care Manager sections are submitted in cassette A1. Cold Time: 3h 55m April Santos 06/15/2025 11:44 AM EDT [facility] Tissue Heart structure / Unknown 06/14/2025 10:18 AM EDT 06/14/2025 2:13 PM EDT Comment:Pre-op diagnosis: Severe aortic regurgitation [I35.1] us Phillip Clark MD LAB PATHOLOGY ORDERABLES Fin al Result [facility] [address] [place] [address] * (ABNORMAL) POCT arterial blood gas gem (06/14/2025 10:08 AM EDT) pH, Arterial 7.40 7.31 - 7.42 06/14/2025 10:17 AM [facility] pCO2, Arterial 40 32 - 45 mm Hg 06/14/2025 10:17 AM [facility] pO2, Arterial 410 >80 mm Hg 06/14/2025 10:17 AM [facility] SO2, Arterial 100(H) 94 - 98 % 06/14/2025 10:17 AM [facility] Base Excess, Arterial 0.0 -2 - 3 mmol/L 06/14/2025 10:17 AM [facility] HCO3, Arterial 24.8 22 - 26 mmol/L 06/14/2025 10:17 AM [facility] Total Hemoglobin, Arterial, Whole Blood 10.1(L) 13.7 - 17.5 g/dL 06/14/2025 10:17 AM [facility] Hematocrit, Arterial 30.0(L) 40 - 51.0 % 06/14/2025 10:17 AM [facility] Sodium, Arterial 133(L) 136 - 145 mmol/L 06/14/2025 10:17 AM [facility] Potassium, Arterial 4.7 3.6 - 4.9 mmol/L 06/14/2025 10:17 AM [facility] Chloride, Whole Blood 104 97 - 107 mmol/L 06/14/2025 10:17 AM [facility] Glucose, Arterial 122(H) 74 - 99 mg/dL 06/14/2025 10:17 AM [facility] Ionized Calcium, Arterial 3.9(L) 4.6 - 5.1 mg/dL 06/14/2025 10:17 AM [facility] Lactate, Arterial 1.5 0.5 - 1.6 mmol/L 06/14/2025 10:17 AM [facility] Body Temperature 37.0 Celsius 06/14/2025 10:17 AM [facility] pH, Temp Corrected, Arterial 7.40 7.31 - 7.42 06/14/2025 10:17 AM [facility] pCO2, Temp Corrected, Arterial 40 32 - 45 mm Hg 06/14/2025 10:17 AM [facility] pO2, Temp Corrected, Arterial 410 >80 mm Hg 06/14/2025 10:17 AM EDT [facility] Window Draper ID Vick Dupont 06/14/2025 10:17 AM EDT [facility] Blood Whole blood specimen / Unknown 06/14/2025 10:08 AM EDT 06/14/2025 10:17 AM EDT Phillip Clark MD LAB POINT OF CARE TE ST DOCKED DEVICE UNSOLICITED RESULTS Final Result Performing Organization Address City/[facility]/ZIP Co de Phone Number [facility] [address] [place] [address] * (ABNORMAL) POCT ACT (06/14/2025 10:04 AM EDT) ACT+ (HIGH RANGE) >600(H) 68 - 600 Seconds 06/14/2025 10:19 AM EDT [facility] Window Draper ID Vick Dupont 06/14/2025 10:19 AM EDT [facility] ACT Device ID [id number] 06/14/2025 10:19 AM EDT [facility] Comment 06/14/2025 10:19 AM EDT [facility] Comment: ACT performed by [...] UNSOLICITED RESULTS Final Result [facility] [address] [place] [address] * POCT ACT (06/14/2025 8:13 AM EDT) ACT+ (HIGH RANGE) 90 68 - 600 Seconds 06/14/2025 8:20 AM EDT [facility] Window Draper ID Kevin Hernandez 06/14/2025 8:20 AM EDT [facility] ACT Device ID [id number] 06/14/2025 8:20 AM EDT [facility] Comment 06/14/2025 8:20 AM EDT [facility] Comment: ACT performed by [...] UNSOLICITED RESULTS Final Result [facility] [address] LAB [address] [place] [address] * (ABNORMAL) POCT arterial blood gas gem (06/14/2025 8:13 AM EDT) pH, Arterial 7.38 7.31 - 7.42 06/14/2025 8:15 AM EDT [facility] pCO2, Arterial 40 32 - 45 mm Hg 06/14/2025 8:15 AM EDT [facility] pO2, Arterial 91 >80 mm Hg 06/14/2025 8:15 AM EDT [facility] SO2, Arterial 99(H) 94 - 98 % 06/14/2025 8:15 AM EDT [facility] Base Excess, Arterial -1.3 -2 - 3 mmol/L 06/14/2025 8:15 AM EDT [facility] HCO3, Arterial 23.7 22 - 26 mmol/L 06/14/2025 8:15 AM EDT [facility] Total Hemoglobin, Arterial, Whole Blood 14.5 13.7 - 17.5 g/dL 06/14/2025 8:15 AM EDT [facility] Hematocrit, Arterial 44.0 40 - 51.0 % 06/14/2025 8:15 AM EDT [facility] Sodium, Arterial 135(L) 136 - 145 mmol/L 06/14/2025 8:15 AM EDT [facility] Potassium, Arterial 4.1 3.6 - 4.9 mmol/L 06/14/2025 8:15 AM EDT [facility] Chloride, Whole Blood 103 97 - 107 mmol/L 06/14/2025 8:15 AM EDT [facility] Glucose, Arterial 95 74 - 99 mg/dL 06/14/2025 8:15 AM EDT [facility] Ionized Calcium, Arterial 4.7 4.6 - 5.1 mg/dL 06/14/2025 8:15 AM EDT [facility] Lactate, Arterial 0.8 0.5 - 1.6 mmol/L 06/14/2025 8:15 AM EDT [facility] Body Temperature 37.0 Celsius 06/14/2025 8:15 AM EDT [facility] pH, Temp Corrected, Arterial 7.38 7.31 - 7.42 06/14/2025 8:15 AM EDT [facility] pCO2, Temp Corrected, Arterial 40 32 - 45 mm Hg 06/14/2025 8:15 AM EDT [facility] pO2, Temp Corrected, Arterial 91 >80 mm Hg 06/14/2025 8:15 AM EDT [facility] Window Draper ID Lb Coreas 06/14/2025 8:15 AM EDT [facility] Blood Whole blood specimen / Unknown 06/14/2025 8:13 AM EDT 06/14/2025 8:15 AM EDT Phillip Clark MD LAB POINT OF CARE TE ST DOCKED DEVICE UNSOLICITED RESULTS Final Result Performing Organization Address City/State/[facility] Co de Phone Number [facility] [address] [place] [phone] * Type and Screen (06/14/2025 6:27 AM EDT) ABO/Rh O Positive 06/14/2025 6:37 AM EDT [facility] Antibody Screen Negative 06/14/2025 6:37 AM EDT [facility] Specimen Expiration 06/17/2025 23:59 06/14/2025 6:37 AM EDT [facility] Blood Venous blood specimen / Unknown Venipuncture / Unknown 06/14/2025 6:27 AM EDT 06/14/2025 6:37 AM EDT Phillip Clark MD LAB BLOOD BANK TEST ORDERABL ES Final Result Performing Organization Address City/[facility] Co de Phone Number BLOOD BANK [address] [place] [address], * POCT glucose meter (06/14/2025 6:23 AM [...] Comment 06/14/2025 6:24 AM EDT [facility] Window Draper ID Kassi Sinha 06/14/2025 6:24 AM EDT [facility] Device ID [id number] 06/14/2025 6:24 AM EDT [facility] Specimen Type POC Venous 06/14/2025 6:24 AM EDT [facility] Blood Venous blood specimen / Unknown 06/14/2025 6:23 AM EDT 06/14/2025 6:24 AM EDT Phillip Clark MD LAB POINT OF CARE TE ST DOCKED DEVICE UNSOLICITED RESULTS Final Result Performing Organization Address City/[facility] Co de Phone Number [facility] [address] [place] [address] documented in this encounter Visit Diagnoses Diagnosis Aortic valve regurgitation- Primary Aortic valve disorders Severe aortic regurgitation Other secondary hypertension S/P AVR Severe aortic regurgitation BMI 30.0-30.9,adult High cholesterol Pure hypercholesterolemia Diabetes Type II or unspecified type diabetes mellitus without mention of complication, not stated as uncontrolled Hypertension Unspecified essential hypertension CAD (coronary artery disease) Coronary atherosclerosis of unspecified type of vessel, [place] or graft History of coronary angioplasty with insertion of stent Ascending aortic aneurysm (CMS/HCC) Thoracic aneurysm without mention of rupture Benign prostatic hyperplasia Unspecified hyperplasia of prostate without urinary obstruction and other lower urinary tract symptoms (LUTS) Weaning from mechanically assisted ventilation initiated (CMS/[facility]) Severe aortic regurgitation Coronary artery disease due [...] Brittaney Dumas RN)[phone] (Given - Provider: Brittaney Dumas, RN)1609 (Given - Provider: Brittaney Dumas, RN)2002 (Given - Provider: Lori Molina, RN)[phone] (Not Given - Provider: Lori Molina RN - Reason: Patient/family refused) 0300 (Given - Provider: Lori Molina RN)0847 (Given - Provider: Vicente Hussein RN)1202 (Given - Provider: Vicente Hussein RN)1513 (Given - Provider: Vicente Hussein RN)2017 (Given - Provider: Any Garcia RN) 0026 (Given - Provider: Any Garcia, HESHAM)0405 (Given - Provider: Any Garcia RN)0855 (Given [...] Brittaney Dumas RN)2003 (Given - Provider: Lori Molina, HESHAM) 846 (Given - Provider: Vicente Hussein, HESHAM)2017 (Not Given - Provider: Any Garcia, HESHAM - Reason: Patient/family refused) 08 (Not Given [...] - Comment: given early per Jason Haji, due to vent bigeminey)0822 (Not Given - Provider: Brittaney Dumas RN - Reason: Hold for condition: must add comment - Comment: dose given by second shift supervisor rn @ [address] [place], [place] [address]Daiana instructed jingle writer to hold 0900 dose)2003 [...] Until Discontinued, Routine 0821 (Given - Provider: Brittanye Dumas RN) 0846 (Given - Provider: Vicente [...] Dumas, RN) 1655 (Given - Provider: Vicente Hussein, [...] as of this encounter Care Teams Glass Ribbon Machine Operator Assistant Relationship Specialty Start Date End Date Kamran Singh MD [address] [place] [address] PCP - General 02/28/25 documented as of this encounter
--- OUTSIDE RECORDS SUMMARY | 2025-06-27 10:23 | XMS_ITS | Encounter Summary ---
Author Organization [facility] Address [address] [place] [address] Care Team Providers Care Bag Machine Tender Name Role Phone Kamran Singh MD Primary Care Provider +1- [phone] Encounter Details Date Type Department Care Team [...] Clinic Cardiothoracic [address], [address] [place] [address] Phillip Clark MD [address] [place] [address] documented as of this encounter Visit Diagnoses Not on filedocumented in this encounter Additional Health Concerns Assessment Noted Time A fall risk assessment has been complete d for the patient 05/05/2025 9:58 AM EDT A Body Mass Index follow-up plan has been documented for the patient 05/05/2025 10:51 AM EDT documented as of this encounter Care Teams Bag Machine Tender Relationship Specialty Start Date End Date Kamran Singh MD [address] [place] [address] PCP - General 02/28/25 documented as of this encounter
--- OUTSIDE RECORDS SUMMARY | 2025-06-27 10:23 | XMS_ITS | Encounter Summary ---
Author Organization [facility] Address [address] [place] [address] Care Team Providers Care Cub Reporter Name Role Phone Kamran Singh MD Primary Care Provider +1- [phone] Encounter Details Date Type Department Care Team [...] Clinic Cardiothoracic [address], [address] [place] [address] Phillip Clark MD [address] [place] [address] documented as of this encounter Visit Diagnoses Not on filedocumented in this encounter Additional Health Concerns Assessment Noted Time A fall risk assessment has been complete d for the patient 04/14/2025 12:34 PM EDT A Body Mass Index follow-up plan has been documented for the patient 04/14/2025 2:26 PM EDT documented as of this encounter Care Teams Cub Reporter Relationship Specialty Start Date End Date Kamran Singh MD [address] [place] [address] PCP - General 02/28/25 documented as of this encounter
--- OUTSIDE RECORDS SUMMARY | 2025-06-27 10:23 | XMS_ITS | Encounter Summary ---
Author Organization [facility] Address [address] [place] [id number] Care Team Providers Care Social Studies Department Chair Name Role Phone Kamran Singh MD Primary Care Provider +1- [phone] Encounter Details Date Type Department Care Team [...] any time in the past 12 m [facility], were you homeless or living in a detention (including now)? No 06/15/2025 [facility] Utilities Answer Date Recorded In the past [...] Office Visit [place] [facility] [address], [address] [place] [address] Phillip Clark MD [address] [place] [address] documented as of this encounter Visit Diagnoses Not on filedocumented in this encounter Additional Health Concerns Assessment Noted Time A fall risk assessment has been complete d for the patient 06/09/2025 12:15 PM EDT A Body Mass Index follow-up plan has been documented for the patient 06/20/2025 10:30 AM EDT documented as of this encounter Care Teams Social Studies Department Chair Relationship Specialty Start Date End Date Kamran Singh MD [address] [place] [address] PCP - General 02/28/25 documented as of this encounter
--- OUTSIDE RECORDS SUMMARY | 2025-06-27 10:23 | XMS_ITS | Encounter Summary ---
Author Organization [facility] Address [address] [place] [id number] Care Team Providers Care Supervisor Force Adjustment Name Role Phone Kamran Singh MD Primary Care Provider +1- [phone] Encounter Details Date Type Department Care Team [...] any time in the past 12 m [facility], were you homeless or living in a retirement (including now)? No 06/15/2025 [facility] Utilities Answer Date Recorded In the [...] Office Visit [place] [facility] [address], [address] [place] [address] Phillip Clark MD [address] [place] [address] documented as of this encounter Visit Diagnoses Not on filedocumented in this encounter Additional Health Concerns Assessment Noted Time A fall risk assessment has been complete d for the patient 06/09/2025 12:15 PM EDT A Body Mass Index follow-up plan has been documented for the patient 06/20/2025 10:30 AM EDT documented as of this encounter Care Teams Supervisor Force Adjustment Relationship Specialty Start Date End Date Kamran Singh MD [address] [place] [address] PCP - General 02/28/25 documented as of this encounter
--- OUTSIDE RECORDS SUMMARY | 2025-06-27 10:23 | XMS_ITS | Encounter Summary ---
Author Organization [facility] Address [address] [place] [address] Care Team Providers Care Workday Manager Name Role Phone Kamran Singh MD Primary Care Provider +1- [phone] Encounter Details Date Type Department Care Team [...] [facility] Cardi[facility] [address], [address] [place] [address] Phillip Clark MD [address] [place] [address] documented as of this encounter Visit Diagnoses Not on filedocumented in this encounter Additional Health Concerns Assessment Noted Time A fall risk assessment has been complete d for the patient 05/05/2025 9:58 AM EDT A Body Mass Index follow-up plan has been documented for the patient 05/05/2025 10:51 AM EDT documented as of this encounter Care Teams Workday Manager Relationship Specialty Start Date End Date Kamran Singh MD [address] [place] [address] PCP - General 02/28/25 documented as of this encounter
--- OUTSIDE RECORDS SUMMARY | 2025-06-27 10:23 | XMS_ITS | Encounter Summary ---
Author Organization [facility] Address [address] [place] [id number] Care Team Providers Care Codifier Name Role Phone Kamran Singh MD Primary Care Provider +1- [phone] Encounter Details Date Type Department Care Team [...] were you homeless or living in a intermediate (including now)? No 06/15/2025 [facility] Utilities Answer Date Recorded In [...] Office Visit [place] [facility] [address], [address] [place] [id number] Phillip Clark MD [address] [place] [address] documented as of this encounter Visit Diagnoses Not on filedocumented in this encounter Additional Health Concerns Assessment Noted Time A fall risk assessment has been complete d for the patient 06/09/2025 12:15 PM EDT A Body Mass Index follow-up plan has been documented for the patient 06/20/2025 10:30 AM EDT documented as of this encounter Care Teams Codifier Relationship Specialty Start Date End Date Kamran Singh MD [address] [place] [address] PCP - General 02/28/25 documented as of this encounter
--- OUTSIDE RECORDS SUMMARY | 2025-06-27 10:23 | XMS_ITS | Encounter Summary ---
Author Organization [facility] Address [address] [place] [id number] Care Team Providers Care Material Spreader Name Role Phone Kamran Singh MD Primary Care Provider +1- [phone] Encounter Details Date Type Department Care Team [...] in a detention (including now)? No 06/15/2025 [facility] Utilities Answer Date Recorded In the [...] Clinic Cardiothoracic [address], [address] [place] [address] Phillip Clark MD [address] [place] [address] documented as of this encounter Visit Diagnoses Not on filedocumented in this encounter Additional Health Concerns Assessment Noted Time A fall risk assessment has been complete d for the patient 06/09/2025 12:15 PM EDT A Body Mass Index follow-up plan has been documented for the patient 06/20/2025 10:30 AM EDT documented as of this encounter Care Teams Material Spreader Relationship Specialty Start Date End Date Kamran Singh MD [address] [facility] [address] PCP - General 02/28/25 documented as of this encounter
--- OUTSIDE RECORDS SUMMARY | 2025-06-27 10:23 | XMS_ITS | Encounter Summary ---
Author Organization [facility] Address [address] [place] [address] Care Team Providers Care Lan/Wan Engineer Name Role Phone Kamran Singh MD Primary Care Provider +1- [phone] Encounter Details Date Type Department Care Team (Late Contact Info) Description 01/04/2025 Orders Only External Location [address] [place] [address] Provider, External Social History Tobacco Use Types [...] Office Visit [place] [facility] [address], [address] [place] [address] Phillip Clark MD [address] [place] [address] documented as of this encounter Procedures Procedure [...] on filedocumented in this encounter Care Teams Lan/Wan Engineer Relationship Specialty Start Date End Date Kamran Singh MD [address] [facility] [place] [address] PCP - General 02/28/25 documented as of this encounter
--- OUTSIDE RECORDS SUMMARY | 2025-06-27 10:23 | XMS_ITS | Encounter Summary ---
Author Organization [facility] Address [address] [place] [address] Care Team Providers Care Guitar Technician Name Role Phone Kamran Singh MD Primary Care Provider +1- [phone] Encounter Details Date Type Department Care Team [...] Description 07/07/2025 2:40 PM EST Office Visit [place] [facility] [address], [address] [place] [address] Phillip Clark MD [address] [place] [address] documented as of this encounter Visit Diagnoses Not on filedocumented in this encounter Additional Health Concerns Assessment Noted Time A fall risk assessment has been complete d for the patient 05/05/2025 9:58 AM EDT A Body Mass Index follow-up plan has been documented for the patient 05/05/2025 10:51 AM EDT documented as of this encounter Care Teams Guitar Technician Relationship Specialty Start Date End Date Kamran Singh MD [address] [place] [address] PCP - General 02/28/25 documented as of this encounter
--- OUTSIDE RECORDS SUMMARY | 2025-06-27 10:23 | XMS_ITS | Encounter Summary ---
Author Organization [facility] Address [address] [place] [address] Care Team Providers Care Lead Manufacturing Engineering Tech Name Role Phone Kamran Singh MD Primary Care Provider +1- [phone] Encounter Details Date Type Department Care Team [...] Description 07/07/2025 2:40 PM EST Office Visit [place] [facility] [address], [address] [place] [address] Phillip Clark MD [address] [place] [address] documented as of this encounter Visit Diagnoses Not on filedocumented in this encounter Additional Health Concerns Assessment Noted Time A fall risk assessment has been complete d for the patient 06/09/2025 12:15 PM EDT A Body Mass Index follow-up plan has been documented for the patient 06/09/2025 2:00 PM EDT documented as of this encounter Care Teams Lead Manufacturing Engineering Tech Relationship Specialty Start Date End Date Kamran Singh MD [address] [place] [address] PCP - General 02/28/25 documented as of this encounter
--- OUTSIDE RECORDS SUMMARY | 2025-06-27 10:23 | XMS_ITS | Encounter Summary ---
Author Organization [facility] Address [address] [place] [address] Care Team Providers Care Steam Distribution Supervisor Name Role Phone Kamran Singh MD Primary Care Provider +1- [phone] Encounter Details Date Type Department Care Team (Late st Contact Info) Description 01/28/2025 Orders Only External Location [address] [place] [address] Provider, External Social History Tobacco Use Types [...] Office Visit [place] [facility] [address], [address] [place] [address] Phillip Clark MD [address] [place] [address] documented as of this encounter Procedures Procedure [...] on filedocumented in this encounter Care Teams Steam Distribution Supervisor Relationship Specialty Start Date End Date Kamran Singh MD [address] [facility] [place] [address] PCP - General 02/28/25 documented as of this encounter
--- OUTSIDE RECORDS SUMMARY | 2025-06-27 10:24 | XMS_ITS | Encounter Summary ---
Author Organization [facility] Address [address] [place] [id number] Care Team Providers Care Sheep Rancher Name Role Phone Kamran Singh MD Primary Care Provider +1- [phone] Encounter Details Date Type Department Care Team [...] any time in the past 12 m [facility], were you homeless or living in a [place] [facility] [place] [facility] (including now)? No 06/15/2025 [facility] [...] Clinic Cardiothoracic [address], [address] [place] [address] Phillip Clark MD [address] [place] [address] documented as of this encounter Visit Diagnoses Not on filedocumented in this encounter Additional Health Concerns Assessment Noted Time A fall risk assessment has been complete d for the patient 06/09/2025 12:15 PM EDT A Body Mass Index follow-up plan has been documented for the patient 06/20/2025 10:30 AM EDT documented as of this encounter Care Teams Sheep Rancher Relationship Specialty Start Date End Date Kamran Singh MD [address] [place] [address] PCP - General 02/28/25 documented as of this encounter
--- OUTSIDE RECORDS SUMMARY | 2025-06-27 10:25 | XMS_ITS | Encounter Summary ---
Author Organization [facility] Address [address] [place] [id number] Care Team Providers Care Drafter Heating And Ventilating Name Role Phone Kamran Singh MD Primary Care Provider +1- [phone] Encounter Details Date Type Department Care Team [...] Clinic Cardioth[facility] [address], [address] [place] [address] Phillip Clark MD [address] [place] [address] documented as of this encounter Visit Diagnoses Not on filedocumented in this encounter Additional Health Concerns Assessment Noted Time A fall risk assessment has been complete d for the patient 06/09/2025 12:15 PM EDT A Body Mass Index follow-up plan has been documented for the patient 06/20/2025 10:30 AM EDT documented as of this encounter Care Teams Drafter Heating And Ventilating Relationship Specialty Start Date End Date Kamran Singh MD [address] [facility] [place] [address] PCP - General 02/28/25 documented as of this encounter
--- OUTSIDE RECORDS SUMMARY | 2025-06-27 10:25 | XMS_ITS | Encounter Summary ---
Author Organization [facility] Address [address] [place] [id number] Care Team Providers Care Classroom Instructional Aide Name Role Phone Kamran Singh MD Primary Care Provider +1- [phone] Encounter Details Date Type Department Care Team [...] in a [facility] (including now)? No 06/15/2025 [facility] Utilities Answer Date Recorded In [...] Clinic Cardiothoracic [address], [address] [place] [address] Phillip Clark MD [address] [place] [address] documented as of this encounter Visit Diagnoses Not on filedocumented in this encounter Additional Health Concerns Assessment Noted Time A fall risk assessment has been complete d for the patient 06/09/2025 12:15 PM EDT A Body Mass Index follow-up plan has been documented for the patient 06/20/2025 10:30 AM EDT documented as of this encounter Care Teams Classroom Instructional Aide Relationship Specialty Start Date End Date Kamran Singh MD [address] [facility] [place] [address] PCP - General 02/28/25 documented as of this encounter
--- OUTSIDE RECORDS SUMMARY | 2025-06-27 10:26 | XMS_ITS | Clinical Summary ---
Author Organization [facility] Address [address] [place] [id number] Care Team Providers Care Glassie Name Role Phone Kamran Singh MD Primary Care Provider [phone]- [phone] Allergies Active Allergy Reactions Criticality Noted Date [...] 2 tablets by mouth every morning. Under [facility], monthly prescriptions (30 days) can [...] EDT Surgery [facility] [address] [place] [address] Phillip Clark MD Aortic valve replacement [06671 (CPT )] 06/14/2025 7:45 AM EDT Anesthesia Event [facility] RO[facility] [address] [place] [address] Jean Claude Staley MD Burns, Jonathon R, DO 06/14/2025 5:18 AM EDT - 06/20/2025 2:25 PM EDT Hospital Encounter [facility] Inpatient [address] [place] [address] Phillip Clark MD Other secondary hypertension (Primary Dx); Severe aortic regurgitation; S/P AVR Discharge Disposition: Home or Self Care 06/14/2025 Travel 06/09/2025 1:42 PM EDT - 06/09/2025 11:59 PM EDT [facility] [address], [address] [place] [address] Severe aortic regurgitation Discharge Disposition: Home or Self Care 06/09/2025 12:20 PM EDT Office Visit [facility] Cardiothoracic [address], [address] [place] [address] Phillip Clark MD Severe aortic regurgitation (Primary Dx) 06/09/2025 Travel 06/07/2025 8:30 AM EDT Pre-Admission Testing [facility] Pre-op Clinic [address], [address] [place] [address] 06/07/2025 Travel 06/02/2025 Travel 05/05/2025 10:20 AM EDT Office Visit [facility] Cardiothoracic [address], [address] [place] [address] Phillip Clark MD Severe aortic regurgitation (Primary Dx) 05/05/2025 Travel 04/28/2025 Travel 04/14/2025 1:00 PM EDT Office Visit [facility] Cardiothoracic [address], [address] [place] [address] Phillip Clark MD Ascending aortic aneurysm, unspecified whether ruptured (CMS/HCC) (Primary Dx); Aortic valve insufficiency, etiology of cardiac valve disease unspecified 04/14/2025 7:13 AM EDT - 04/14/2025 11:59 PM EDT Hospital Encounter [facility] Radiology [address] [place] [address] Ascending aortic aneurysm, unspecified whether ruptured (CMS/HCC) [...] any time in the past 12 m [facility], were you homeless or living in a usp (including now)? No 06/15/2025 [facility] Utilities Answer Date Recorded In the [...] Description 07/07/2025 2:40 PM EST Office Visit [facility] Cardiothoracic [address], [facility] [address] [place] [address] Phillip Clark MD [address] [place] [address] Health Maintenance Due Date Last Done Comments [...] - Risk 60-74 years 1-dose series) 2015 [id number] Vaccine ( season) 2025 06/22/2022, 01/19/2022, 07/12/2021, [...] this topic Medical Devices Implanted Type Area Home Agent Device Identifier Shelf Expiration Date Model / Serial / Lot Graft Ptch [id number] [place] - [id number] Implanted:Qty: 1 on 06/14/2025 by Phillip Clark MD at [facility] N/A: Heart [employer]-[id number] / / Valve Atrial 25mm Rotatabl Cuf Std Ptfe - [id number] - [id number] Implanted:Qty: 1 on 06/14/2025 by Phillip Clark MD at [facility] N/A: Heart [employer]-[id number] 03/28/2030 [facility] / [id number] / [id number] Procedures Procedure Name Priority Date/Time Associated Diagnosis [...] IMAGING PLACEHOLDER Routine 06/14/2025 8:32 AM EDT NH INSERT/PLACE FLOW DIRECT CATH Routine 06/14/2025 8:32 AM EDT ANESTHESIA ULTRASOUND GUIDED Routine 06/14/2025 8:32 AM EDT PB ANESTHESIA NON-TIMED PROCEDURE PLACEHOLDER Routine 06/14/2025 8:32 AM EDT NH AN CENTRAL LINE DOUBLE LUMEN Routine 06/14/2025 8:32 AM EDT PB ANESTHESIA PLACEHOLDER Routine 06/14/2025 8:16 AM EDT NH AN ELECTIVE ENDOTRACHEAL AIRWAY Routine 06/14/2025 8:16 AM EDT POCT ACT UNSOLICITED RESULTS Routine 06/14/2025 8:13 AM EDT POCT ARTERIAL BLOOD GAS GEM UNSOLICITED RESULTS Routine 06/14/2025 8:13 AM EDT PB ANESTHESIA NON-TIMED PROCEDURE PLACEHOLDER Routine 06/14/2025 8:08 AM EDT NH -AORT GRF W/CARD BYP [...] LAB COAGULATION METHOD 06/20/2025 2:29 AM EDT [facility] INR 2.9(H) 0.9 - 1.1 LAB COAGULATION METHOD 06/20/2025 2:29 AM EDT [facility] Blood Venous blood specimen / Unknown Venipuncture / Unknown 06/20/2025 1:52 AM EDT 06/20/2025 1:59 AM EDT Narrative [facility] - 06/20/2025 2:29 AM EDT OPTIMAL INR RANGES FOR PATIENT ON ORAL ANTICOAGULANT THERAPY Prevention of venous thromboembolism INR 2.0 to 3.0 In patients with heart disease: Atrial fibrillation INR 2.0 to 3.0 Valvular heart disease INR 2.0 to 3.0 Tissue heart valves INR 2.0 to 3.0 Mechanical prosthetic valves INR 2.5 to 3.5 Prevention of recurrent NM INR 2.5 to 3.5 us Phillip Clark MD LAB BLOOD ORDERABLES Final R esult [facility] [address] [place] [address] * (ABNORMAL) CBC (06/20/2025 1:52 AM EDT) Only the most recent of9 resultswithin the time period is included. WBC Count 6.95 3.70 - 10.30 10*3/uL LAB HEMATOLOGY METHOD 06/20/2025 2:07 AM EDT [facility] RBC Count 3.73(L) 4.60 - 6.10 10*6/uL LAB HEMATOLOGY METHOD 06/20/2025 2:07 AM EDT [facility] HGB 10.4(L) 13.7 - 17.5 g/dL LAB HEMATOLOGY METHOD 06/20/2025 2:07 AM EDT [facility] HCT 31.9(L) 40.0 - 51.0 % LAB HEMATOLOGY METHOD 06/20/2025 2:07 AM EDT [facility] Platelet Count 187 155 - 369 10*3/uL LAB HEMATOLOGY METHOD 06/20/2025 2:07 AM EDT [facility] MCV 86 79 - 98 fL LAB HEMATOLOGY METHOD 06/20/2025 2:07 AM EDT [facility] MCH 27.9 26.0 - 32.0 pg LAB HEMATOLOGY METHOD 06/20/2025 2:07 AM EDT [facility] MCHC 32.6 30.7 - 35.5 g/dL LAB HEMATOLOGY METHOD 06/20/2025 2:07 AM EDT [facility] RDW 14.8(H) 11.5 - 14.5 % LAB HEMATOLOGY METHOD 06/20/2025 2:07 AM EDT [facility] MPV 10.2 8.8 - 12.5 fL LAB HEMATOLOGY METHOD 06/20/2025 2:07 AM EDT [facility] nRBC 0.0 <=0.0 per 100 WBCs LAB HEMATOLOGY METHOD 06/20/2025 2:07 AM EDT [facility] Blood Venous blood specimen / Unknown Venipuncture / Unknown 06/20/2025 1:52 AM EDT 06/20/2025 1:59 AM EDT us Phillip Clark MD LAB BLOOD ORDERABLES Final R esult Performing Organization Address [facility] Co de Phone Number [facility] [address] [place] [address] * Phosphorus (06/20/2025 1:52 AM EDT) Only the most recent of8 resultswithin the time period is included. Phosphorus, Plasma 2.8 2.5 - 4.5 mg/dL 06/20/2025 2:23 AM EDT [facility] Blood Venous blood specimen / Unknown Venipuncture / Unknown 06/20/2025 1:52 AM EDT 06/20/2025 1:59 AM EDT Phillip Clark MD LAB BLOOD ORDERABLES Final R esult Performing Organization Address [facility] Co de Phone Number [facility] [address] [place] [address] * Magnesium (06/20/2025 1:52 AM EDT) Only the most recent of10 resultswithin the time period is included. Magnesium, Plasma 2.2 1.9 - 2.4 mg/dL 06/20/2025 2:23 AM EDT [facility] Blood Venous blood specimen / Unknown Venipuncture / Unknown 06/20/2025 1:52 AM EDT 06/20/2025 1:59 AM EDT hPillip Clark MD LAB BLOOD ORDERABLES Final R esult Performing Organization Address [facility] Co de Phone Number [facility] [address] [place] [address] * (ABNORMAL) Basic metabolic panel (06/20/2025 1:52 AM EDT) Only the most recent of9 resultswithin the time period is included. Glucose, Plasma 107(H) 74 - 99 mg/dL 06/20/2025 2:47 AM EDT [facility] BUN, Plasma 22 8 - 23 mg/dL 06/20/2025 2:47 AM EDT [facility] Creatinine, Plasma 0.85 0.70 - 1.20 mg/dL 06/20/2025 2:47 AM EDT [facility] BUN/Creatinine Ratio 26 06/20/2025 2:47 AM EDT [facility] Sodium, Plasma 131(L) 136 - 145 mmol/L 06/20/2025 2:47 AM EDT [facility] Potassium, Plasma 4.0 3.6 - 4.9 mmol/L 06/20/2025 2:47 AM EDT [facility] Chloride, Plasma 102 97 - 107 mmol/L 06/20/2025 2:47 AM EDT [facility] CO2, Plasma 24 22 - 29 mmol/L 06/20/2025 2:47 AM EDT [facility] Anion Gap 5(L) 6 - 16 mmol/L 06/20/2025 2:47 AM EDT [facility] Total Calcium, Plasma 7.9(L) 8.9 - 10.2 mg/dL 06/20/2025 2:47 AM EDT [facility] eGFRcr 94.1 mL/min/1.7 3m*2 06/20/2025 2:47 AM EDT [facility] Comment:Reported eGFRcr in m L/min/1.73m2 is based the CKD-EPI 2020 equation that does not use a race coefficient. Blood Venous blood specimen / Unknown Venipuncture / Unknown 06/20/2025 1:52 AM EDT 06/20/2025 1:59 AM EDT us Phillip Clark MD LAB BLOOD ORDERABLES Final R esult [facility] [address] [place] [address] * PERIPHERAL IV (SMARTFORM LINK) (06/20/2025 1:47 [...] QTC Interval 478 ms MUSE ECG P [place] 43 degrees MUSE ECG R [place] -30 degrees MUSE ECG T Wave [place] 36 degrees MUSE ECG Diagnosis Poor data quality, interpretation may be adversely affected MUSE ECG Diagnosis Sinus rhythm with premature supraventricular complexes and with occasional premature ventricular complexes MUSE ECG Diagnosis Left axis deviation MUSE ECG Diagnosis Poor R-wave progression MUSE ECG Diagnosis Abnormal ECG MUSE ECG Diagnosis Recommend repeat ECG MUSE ECG Diagnosis MUSE ECG Diagnosis Confirmed by Aman Coe ([id number]) on 06/19/2025 1:33:10 PM MUSE ECG 06/19/2025 [...] - 99 mg/dL 06/16/2025 7:41 PM EDT [facility] BUN, Plasma 15 8 - 23 mg/dL 06/16/2025 7:41 PM EDT [facility] Creatinine, Plasma 0.79 0.70 - 1.20 mg/dL 06/16/2025 7:41 PM EDT [facility] BUN/Creatinine Ratio 19 06/16/2025 7:41 PM EDT [facility] Sodium, Plasma 134(L) 136 - 145 mmol/L 06/16/2025 7:41 PM EDT [facility] Potassium, Plasma 3.8 3.6 - 4.9 mmol/L 06/16/2025 7:41 PM EDT [facility] Chloride, Plasma 98 97 - 107 mmol/L 06/16/2025 7:41 PM EDT [facility] CO2, Plasma 25 22 - 29 mmol/L 06/16/2025 7:41 PM EDT [facility] Anion Gap 11 6 - 16 mmol/L 06/16/2025 7:41 PM EDT [facility] Total Calcium, Plasma 8.4(L) 8.9 - 10.2 mg/dL 06/16/2025 7:41 PM EDT [facility] Phosphorus, Plasma 2.2(L) 2.5 - 4.5 mg/dL 06/16/2025 7:41 PM EDT [facility] Albumin, Plasma 3.4(L) 3.5 - 5.2 g/dL 06/16/2025 7:41 PM EDT [facility] eGFRcr 96.2 mL/min/1.7 3m*2 06/16/2025 7:41 PM EDT [facility] Comment:Reported eGFRcr in m L/min/1.73m2 is based the CKD-EPI 2020 equation that does not use a race coefficient. Blood Venous blood specimen / Unknown Venipuncture / Unknown 06/16/2025 5:35 PM EDT 06/16/2025 7:12 PM EDT us Phillip Clark MD LAB BLOOD ORDERABLES Final R esult [facility] [address] [place] [address] * [place] CRITICAL CARE, E/M 30-74 MINUTES [...] for testing. Comment 06/16/2025 8:45 AM EDT [facility] Nurse Practitioner Per Diem ID Fariba Blanton [id number] 8:45 AM EDT [facility] Device ID [id number] 06/16/2025 8:45 AM EDT [facility] Specimen Type POC Arterial 06/16/2025 8:45 AM EDT [facility] Blood Arterial blood specimen / Unknown 06/16/2025 8:40 AM EDT 06/16/2025 8:45 AM EDT us Phillip Clark MD LAB POINT OF CARE TE ST DOCKED DEVICE UNSOLICITED RESULTS Final Result [facility] [address] [place] [id number] * XR Abdomen 1 View (06/16/2025 1:20 [...] LAB HEMATOLOGY METHOD 06/16/2025 12:58 AM EDT [facility] pCO2, Arterial 41 32 - 45 mmHg LAB HEMATOLOGY METHOD 06/16/2025 12:58 AM EDT [facility] pO2, Arterial 65(L) >80 mmHg LAB HEMATOLOGY METHOD 06/16/2025 12:58 AM EDT [facility] SO2, Measured, Arterial 94 94 - 98 % LAB HEMATOLOGY METHOD 06/16/2025 12:58 AM EDT [facility] Base Excess, Arterial 2.5 -2.0 - 3.0 mmol/L LAB HEMATOLOGY METHOD 06/16/2025 12:58 AM EDT [facility] Bicarbonate, Calculated, Arterial 27(H) 22 - 26 mmol/L LAB HEMATOLOGY METHOD 06/16/2025 12:58 AM EDT [facility] Hematocrit, Whole Blood 37.9(L) 40.0 - 51.0 % LAB HEMATOLOGY METHOD 06/16/2025 12:58 AM EDT [facility] Sodium, Whole Blood 133(L) 136 - 145 mmol/L LAB HEMATOLOGY METHOD 06/16/2025 12:58 AM EDT [facility] Potassium, Whole Blood 3.4(L) 3.6 - 4.9 mmol/L LAB HEMATOLOGY METHOD 06/16/2025 12:58 AM EDT [facility] Chloride, Whole Blood 100 97 - 107 mmol/L LAB HEMATOLOGY METHOD 06/16/2025 12:58 AM EDT [facility] Glucose, Whole Blood 124(H) 74 - 99 mg/dL LAB HEMATOLOGY METHOD 06/16/2025 12:58 AM EDT [facility] Ionized Calcium, Whole Blood 4.3(L) 4.6 - 5.1 mg/dL LAB HEMATOLOGY METHOD 06/16/2025 12:58 AM EDT [facility] Lactate, Arterial, Whole Blood 1.0 0.5 - 1.6 mmol/L LAB HEMATOLOGY METHOD 06/16/2025 12:58 AM EDT [facility] Blood Arterial blood specimen / Unknown Arterial Puncture / Unknown 06/16/2025 12:36 AM EDT 06/16/2025 12:55 AM EDT us Phillip Clark MD LAB BLOOD ORDERABLES Final R esult [facility] [address] [place] [address] * [facility] CRITICAL CARE, E/M 30-74 MINUTES [...] LAB HEMATOLOGY METHOD 06/15/2025 8:47 AM EDT [facility] RBC Count 4.60 4.60 - 6.10 10*6/uL LAB HEMATOLOGY METHOD 06/15/2025 8:47 AM EDT [facility] HGB 12.8(L) 13.7 - 17.5 g/dL LAB HEMATOLOGY METHOD 06/15/2025 8:47 AM EDT [facility] HCT 39.4(L) 40.0 - 51.0 % LAB HEMATOLOGY METHOD 06/15/2025 8:47 AM EDT [facility] Platelet Count 120(L) 155 - 369 10*3/uL LAB HEMATOLOGY METHOD 06/15/2025 8:47 AM EDT [facility] MCV 86 79 - 98 fL LAB HEMATOLOGY METHOD 06/15/2025 8:47 AM EDT [facility] MCH 27.8 26.0 - 32.0 pg LAB HEMATOLOGY METHOD 06/15/2025 8:47 AM EDT [facility] MCHC 32.5 30.7 - 35.5 g/dL LAB HEMATOLOGY METHOD 06/15/2025 8:47 AM EDT [facility] RDW 15.5(H) 11.5 - 14.5 % LAB HEMATOLOGY METHOD 06/15/2025 8:47 AM EDT [facility] MPV 10.6 8.8 - 12.5 fL LAB HEMATOLOGY METHOD 06/15/2025 8:47 AM EDT [facility] nRBC 0.0 <=0.0 per 100 WBCs LAB HEMATOLOGY METHOD 06/15/2025 8:47 AM EDT [facility] Differential Type Automated LAB HEMATOLOGY METHOD 06/15/2025 8:47 AM EDT [facility] Neutrophils % 84 % LAB HEMATOLOGY METHOD 06/15/2025 8:47 AM EDT [facility] Lymphocytes % 5 % LAB HEMATOLOGY METHOD 06/15/2025 8:47 AM EDT [facility] Monocytes % 10 % LAB HEMATOLOGY METHOD 06/15/2025 8:47 AM EDT [facility] Eosinophils % 0 % LAB HEMATOLOGY METHOD 06/15/2025 8:47 AM EDT [facility] Basophils % 0 % LAB HEMATOLOGY METHOD 06/15/2025 8:47 AM EDT [facility] Immature Granulocytes % 1 % LAB HEMATOLOGY METHOD 06/15/2025 8:47 AM EDT [facility] Neutrophils Absolute 10.59(H) 1.60 - 6.10 10*3/uL LAB HEMATOLOGY METHOD 06/15/2025 8:47 AM EDT [facility] Lymphocytes Absolute 0.60(L) 1.20 - 3.90 10*3/uL LAB HEMATOLOGY METHOD 06/15/2025 8:47 AM EDT [facility] Monocytes Absolute 1.29(H) 0.30 - 0.90 10*3/uL LAB HEMATOLOGY METHOD 06/15/2025 8:47 AM EDT [facility] Eosinophils Absolute 0.00 0.00 - 0.50 10*3/uL LAB HEMATOLOGY METHOD 06/15/2025 8:47 AM EDT [facility] Basophils Absolute 0.02 0.00 - 0.10 10*3/uL LAB HEMATOLOGY METHOD 06/15/2025 8:47 AM EDT [facility] Immature Granulocytes Absolute 0.06 0.00 - 0.06 10*3/uL LAB HEMATOLOGY METHOD 06/15/2025 8:47 AM EDT [facility] Blood Venous blood specimen / Unknown Venipuncture / Unknown 06/15/2025 8:18 AM EDT 06/15/2025 8:34 AM EDT Narrative [facility] - 06/15/2025 8:47 AM EDT Therapeutic decision making should be based on absolute values, rather than percentages. us Phillip Clark MD LAB BLOOD ORDERABLES Final R esult Performing Organization Address [facility] [place] [address] * Ionized calcium, whole blood (06/15/2025 6:40 AM EDT) Ionized Calcium, Whole Blood 4.6 4.6 - 5.1 mg/dL LAB HEMATOLOGY METHOD 06/15/2025 6:50 AM EDT [facility] Blood Arterial blood specimen / Unknown Venipuncture / Unknown 06/15/2025 6:40 AM EDT 06/15/2025 6:48 AM EDT Phillip Clark MD LAB BLOOD ORDERABLES Final R esult Performing Organization Address [facility] [place] [address] * [place] CRITICAL CARE, ADDL 30 MIN, [...] LAB HEMATOLOGY METHOD 06/15/2025 8:17 AM EDT [facility] Neutrophils % 85 % LAB HEMATOLOGY METHOD 06/15/2025 8:17 AM EDT [facility] Lymphocytes % 4 % LAB HEMATOLOGY METHOD 06/15/2025 8:17 AM EDT [facility] Monocytes % 10 % LAB HEMATOLOGY METHOD 06/15/2025 8:17 AM EDT [facility] Eosinophils % 0 % LAB HEMATOLOGY METHOD 06/15/2025 8:17 AM EDT [facility] Basophils % 0 % LAB HEMATOLOGY METHOD 06/15/2025 8:17 AM EDT [facility] Immature Granulocytes % 1 % LAB HEMATOLOGY METHOD 06/15/2025 8:17 AM EDT [facility] Immature Granulocytes Absolute 0.05 0.00 - 0.06 10*3/uL LAB HEMATOLOGY METHOD 06/15/2025 8:17 AM EDT [facility] Neutrophils Absolute 9.28(H) 1.60 - 6.10 10*3/uL LAB HEMATOLOGY METHOD 06/15/2025 8:17 AM EDT [facility] Lymphocytes Absolute 0.45(L) 1.20 - 3.90 10*3/uL LAB HEMATOLOGY METHOD 06/15/2025 8:17 AM EDT [facility] Monocytes Absolute 1.14(H) 0.30 - 0.90 10*3/uL LAB HEMATOLOGY METHOD 06/15/2025 8:17 AM EDT [facility] Basophils Absolute 0.02 0.00 - 0.10 10*3/uL LAB HEMATOLOGY METHOD 06/15/2025 8:17 AM EDT [facility] Eosinophils Absolute 0.00 0.00 - 0.50 10*3/uL LAB HEMATOLOGY METHOD 06/15/2025 8:17 AM EDT [facility] Blood Venous blood specimen / Unknown Venipuncture / Unknown 06/15/2025 12:20 AM EDT 06/15/2025 12:26 AM EDT Phillip Clark MD LAB BLOOD ORDERABLES Final R esult Performing Organization Address City/[facility] Co de Phone Number [facility] [address] [place] [address] * (ABNORMAL) Hemoglobin (06/15/2025 12:20 AM EDT) Only the most recent of2 resultswithin the time period is included. HGB 13.6(L) 13.7 - 17.5 g/dL LAB HEMATOLOGY METHOD 06/15/2025 12:36 AM EDT [facility] Blood Venous blood specimen / Unknown Venipuncture / Unknown 06/15/2025 12:20 AM EDT 06/15/2025 12:26 AM EDT Phillip Clark MD LAB BLOOD ORDERABLES [facility] Performing Organization Address [facility] Co de Phone Number [facility] [address] [place] [address] * Hematocrit (06/15/2025 12:20 AM EDT) Only the most recent of2 resultswithin the time period is included. [facility] HCT 41.0 40.0 - 51.0 % LAB HEMATOLOGY METHOD 06/15/2025 12:36 AM EDT [facility] Blood Venous blood specimen / Unknown Venipuncture / Unknown 06/15/2025 12:20 AM EDT 06/15/2025 12:26 AM EDT Phillip Clark MD LAB BLOOD ORDERABLES [facility] Performing Organization Address City/[facility] Co de Phone Number [facility] [address] [place] [address] * Potassium, Plasma (06/15/2025 12:20 AM EDT) Only the most recent of3 resultswithin the time period is included. Potassium, Plasma 4.5 3.6 - 4.9 mmol/L 06/15/2025 12:51 AM EDT [facility] Blood Venous blood specimen / Unknown Venipuncture / Unknown 06/15/2025 12:20 AM EDT 06/15/2025 12:26 AM EDT us Phillip Clark MD LAB BLOOD ORDERABLES Final R esult [facility] [address] [place] [address] * [place] CRITICAL CARE, E/M 30-74 MINUTES [...] LAB HEMATOLOGY METHOD 06/14/2025 3:24 PM EDT [facility] pCO2, Mixed Venous 47 40 - 55 mmHg LAB HEMATOLOGY METHOD 06/14/2025 3:24 PM EDT [facility] pO2, Mixed Venous 54(H) 25 - 40 mmHg LAB HEMATOLOGY METHOD 06/14/2025 3:24 PM EDT [facility] SO2, Measured, Mixed Venous 84(H) 65 - 80 % LAB HEMATOLOGY METHOD 06/14/2025 3:24 PM EDT [facility] Bicarbonate, Calculated, Mixed Venous 22 22 - 26 mmol/L LAB HEMATOLOGY METHOD 06/14/2025 3:24 PM EDT [facility] Base Excess, Mixed Venous -4.7(L) -2.0 - 3.0 mmol/L LAB HEMATOLOGY METHOD 06/14/2025 3:24 PM EDT [facility] Hematocrit, Whole Blood 43.0 40.0 - 51.0 % LAB HEMATOLOGY METHOD 06/14/2025 3:24 PM EDT [facility] Sodium, Whole Blood 139 136 - 145 mmol/L LAB HEMATOLOGY METHOD 06/14/2025 3:24 PM EDT [facility] Potassium, Whole Blood 3.7 3.6 - 4.9 mmol/L LAB HEMATOLOGY METHOD 06/14/2025 3:24 PM EDT [facility] Chloride, Whole Blood 110(H) 97 - 107 mmol/L LAB HEMATOLOGY METHOD 06/14/2025 3:24 PM EDT [facility] Ionized Calcium, Whole Blood 4.6 4.6 - 5.1 mg/dL LAB HEMATOLOGY METHOD 06/14/2025 3:24 PM EDT [facility] Glucose, Whole Blood 149(H) 74 - 99 mg/dL LAB HEMATOLOGY METHOD 06/14/2025 3:24 PM EDT [facility] Oxyhemoglobin, Mixed Venous, Whole Blood 81.9(H) 40.0 - 70.0 % LAB HEMATOLOGY METHOD 06/14/2025 3:24 PM EDT [facility] Hemoglobin Reduced, Mixed Venous, Whole Blood 16.1 % LAB HEMATOLOGY METHOD 06/14/2025 3:24 PM EDT [facility] Total Hemoglobin, Mixed Venous, Whole Blood 14.0 13.7 - 17.5 g/dL LAB HEMATOLOGY METHOD 06/14/2025 3:24 PM EDT [facility] Blood Mixed venous blood specimen / Unknown Venipuncture / Unknown 06/14/2025 3:00 PM EDT 06/14/2025 3:23 PM EDT us Phillip Clark MD LAB BLOOD ORDERABLES Final R esult Performing Organization Address [facility] Co de Phone Number [facility] [address] [place] [address] * Eli auris Surveillance by PCR (06/14/2025 2:37 PM EDT) Eli auris PCR Result Not Detected Not Detected 06/15/2025 12:46 PM EDT [facility] Swab (Axilla and Groin) Non-blood Collection / Unknown 06/14/2025 2:37 PM EDT 06/14/2025 3:10 PM EDT Narrative [facility] - 06/15/2025 12:46 PM EDT This PCR assay was developed and its performance characteristics determined by [facility] as appropriate for clinical purposes. This assay has not been cleared or approved by the FDA, but is performed in a CLIA regulated laboratory that is qualified to perform high-complexity testing. Phillip Clark MD LAB MICROBIOLOGY - GENERAL O RDERABLES Final Result Performing Organization Address [facility] Co de Phone Number [place] [address] * Multi Drug Resistance Test (06/14/2025 2:37 PM EDT) Pathologist [facility] Culture No growth at day 1 06/15/2025 4:03 PM EDT [facility] Swab (Nares and Smita Rectal) Non-blood Collection / Unknown 06/14/2025 2:37 PM EDT 06/14/2025 3:10 PM EDT Narrative [facility] - 06/15/2025 4:03 PM EDT This test was developed and its performance characteristics determined by the [facility]. Although the media is FDA-approved, it is not FDA-approved for all specimen types submitted. The FDA has determined that such clearance or approval is not necessary. This test is used for surveillance purposes. It should not be regarded as investigational or for research. The [facility] is certified under the Clinical Laboratory Improvement Amendments of 1988 (CLIA-88) as qualified to perform high complexity clinical laboratory testing. us Phillip Clark MD LAB MICROBIOLOGY - GENERAL O RDERABLES Final Result Performing Organization Address [facility] Co de Phone Number [facility] [address] [place] [address] * APTT (06/14/2025 2:36 PM EDT) Only the most recent of2 resultswithin the time period is included. aPTT 29 25 - 35 sec LAB COAGULATION METHOD 06/14/2025 4:11 PM EDT [facility] Blood Venous blood specimen / Unknown Venipuncture / Unknown 06/14/2025 2:36 PM EDT 06/14/2025 3:18 PM EDT us Phillip Clark MD LAB BLOOD ORDERABLES Final R esult Performing Organization Address [facility] [place] [address] * PB POINT OF CARE IMAGING PLACEHOLDER [...] mcg/kg/min) RV: same as baseline Aortic valve: campo valve replaced by mechanical valve. New valve [...] - 17.5 g/dL 06/14/2025 2:02 PM EDT [facility] Hematocrit, Arterial 44.0 40 - 51.0 % 06/14/2025 2:02 PM ED[address] [facility] Sodium, Arterial 136 136 - 145 mmol/L 06/14/2025 2:02 PM ED[address] [facility] Potassium, Arterial 3.4(L) 3.6 - 4.9 mmol/L 06/14/2025 2:02 PM ED[address] [facility] Chloride, Whole Blood 105 97 - 107 mmol/L 06/14/2025 2:02 PM ED[address] [facility] Glucose, Arterial 138(H) 74 - 99 mg/dL 06/14/2025 2:02 PM EDT [facility] Ionized Calcium, Arterial 4.9 4.6 - 5.1 mg/dL 06/14/2025 2:02 PM ED[address] [facility] Lactate, Arterial 4.2(H) 0.5 - 1.6 mmol/L 06/14/2025 2:02 [address] [facility] Body Temperature 37.0 Celsius 06/14/2025 2:02 [address] [facility] pH, Temp Corrected, Arterial 7.35 7.31 - 7.42 06/14/2025 2:02 PM ED[address] [facility] pCO2, Temp Corrected, Arterial 38 32 - 45 mm Hg 06/14/2025 2:02 PM EDT [facility] pO2, Temp Corrected, Arterial 376 >80 mm Hg 06/14/2025 2:02 PM EDT [facility] Nurse Practitioner Per Diem ID Ricki Zamarripa 06/14/2025 2:02 PM EDT [facility] Blood Whole blood specimen / Unknown 06/14/2025 2:00 PM EDT 06/14/2025 2:02 PM EDT us Phillip Clark MD LAB POINT OF CARE TE ST DOCKED DEVICE UNSOLICITED RESULTS Final Result [facility] [address] [place] [address] * POCT ACT (06/14/2025 12:43 PM EDT) Only the most recent of7 resultswithin the time period is included. [facility] ACT+ (HIGH RANGE) 98 68 - 600 Seconds 06/14/2025 12:49 PM EDT [facility] Nurse Practitioner Per Diem ID Vick Dupont 06/14/2025 12:49 PM EDT [facility] ACT Device ID [id number] 06/14/2025 12:49 PM EDT [facility] Comment 06/14/2025 12:49 PM EDT [facility] Comment: ACT performed by [...] Result Performing Organization Address City/State/[facility] Co de Phone Number HEALTHCARE LAB [address] LAB [address] [place] [address] * (ABNORMAL) QPLUS (06/14/2025 11:55 AM EDT) [facility] Clot Time 06/14/2025 12:12 PM EDT HEALTHCARE [...] Seconds 06/14/2025 12:12 PM EDT [facility]ARE LAB Nurse Practitioner Per Diem ID Ricki Zamarripa 06/14/2025 12:12 PM EDT [facility] Device ID [id number] 06/14/2025 12:12 PM EDT [facility] Whole Blood 06/14/2025 11:5 5 AM EDT 06/14/2025 12:12 PM EDT Narrative [facility] - 06/14/2025 12:[address]: No Clot Detected us Phillip Clark MD LAB POINT OF CARE TE ST DOCKED DEVICE UNSOLICITED RESULTS Final Result Performing Organization Address City/[facility]/ZIP Co de Phone Number [facility] [address] [place] [address] * Surgical Pathology Exam (06/14/2025 10:18 AM EDT) Case Report Surgical Pathology Case: [id number] Authorizing Provider: Phillip Clark MD Collected: 06/14/2025 1018 Ordering Location: [facility] Received: 06/14/2025 1413 Pathologist: Beth Lake MD Specimen: Heart, aortic valve leaflets 06/15/2025 11:44 AM EDT [facility] Final Diagnosis A. AORTIC VALVE LEAFLETS, REPLACEMENT: - FIBROSIS AND MYXOID DEGENERATION. 06/15/2025 11:44 AM EDT [facility] at 1144 EDT Clinical Information Severe aortic regurgitation [I35.1] 06/15/2025 11:44 AM EDT [facility] Gross Description A. AORTIC VALVE LEAFLETS Received fresh and placed in formalin labeled aortic valve leaflets are 2 white-montez soft cardiac leaflets ranging in size from 2.5-4.0 cm in greatest dimension. Delivery Analyst sections are submitted in cassette A1. Cold Time: 3h 55m April Levon Danielle 06/15/2025 11:44 AM EDT [facility] Tissue Heart structure / Unknown 06/14/2025 10:18 AM EDT 06/14/2025 2:13 PM EDT Comment:Pre-op diagnosis: Severe aortic regurgitation [I35.1] us Phillip Clark MD LAB PATHOLOGY ORDERABLES Fin al Result Performing Organization Address City/[facility]/ZIP Co de Phone Number [facility] [address] [place] [address] * [place] AN CENTRAL LINE DOUBLE LUMEN, PB ANESTHESIA NON-TIMED PROCEDURE PLACEHOLDER, ANESTHESIA ULTRASOUND GUIDED, NH INSERT/PLACE FLOW DIRECT CATH, PB POINT OF [...] MD ANESTHESIA ORDERABLES Final Resu lt * NH AN ELECTIVE ENDOTRACHEAL AIRWAY, PB ANESTHESIA PLACEHOLDER [...] artery Staffing Performed: Other Anesthesia Staff Anesthesiologist: eJan Claude Staley MD Other anesthesia staff: Ricki [...] Final Result Performing Organization Address [facility] de Phone Number BLOOD BANK [address] [place] [address], [place] * Type & Screen, 30 Days [...] ORDERABL ES Final Result Performing Organization Address City/[facility]/ZIP Co de Phone Number BLOOD BANK [address] * (ABNORMAL) Hemoglobin A1c (06/09/2025 1:39 [...] Adults <6.0% Children and Adolescents <7.5% Source: [place] [employer]. Standards of medical care in diabetes,2017. Diabetes Care.2017:40 (suppl 1):S1-S135. Phillip Clark MD LAB BLOOD ORDERABLES Final R esult [facility] [address] [place] [address] * Comprehensive Metabolic Panel, Plasma (06/09/2025 1:39 [...] esult [facility] [address] [place] [address] * CT Chest wo IV Contrast (04/14/2025 [...] lt [place] [address] [place] [address] [facility] MEDICARE Advance Directives * Full Code (Latest Code Status on File) Date Activated Date Inactivated Comments 06/14/2025 2:35 PM 06/20/2025 4:27 PM Question Answer Comments I have reviewed the capacity from the link above and, if needed, have updated to appropriate status: Yes Care Teams Glassie Relationship Specialty Start Date End Date Kamran Singh MD [address] [place] [address] PCP - General 02/28/25
[2025-06-27 10:48] LABS: INR 2.14 (0.9-1.1); Prothrombin Time 22.5 seconds (10.1-12.5)
[2025-06-27 11:33] LABS: Albumin Level 2.8 g/dl (3.5-5.0)
[2025-06-27 11:36] LABS: Alanine Aminotransferase 179 U/L (12-78); Alkaline Phosphatase 135 U/L (38-126); Aspartate Amino Transferase 68 U/L (17-59); Bilirubin,Direct 0.0 mg/dl (0.0-0.4); Bilirubin,Indirect 0.7 mg/dL (0.0-0.9); Bilirubin,Total 0.7 mg/dl (0.2-1.3); Bilirubin,Unconjugated 0.7 mg/dL (0.0-1.1); Cholesterol 88 mg/dl (140-200); HDL Cholesterol 34 mg/dl (40-60); Total Protein,Serum 6.1 g/dl (6.3-8.2); Triglycerides 149 mg/dl (30-150)
== END 2025-06-27 23:59 | disposition home or self-care (01) ==
LOC: LAB 10:14
PROVIDERS: PCP Family Medicine; Visit Provider Nurse Practitioner
DX: I25.10 Atherosclerotic heart disease of native coronary artery without angina pectoris (principal); I10 Essential (primary) hypertension; E78.5 Hyperlipidemia, unspecified
CPT/HCPCS: 36415; 80061; 80076; 85610

== ENCOUNTER 2025-06-29 12:41 | Outpatient (CLI) | payer BC, MEDICARE, SELFPAY ==
--- OUTSIDE RECORDS SUMMARY | 2025-05-05 10:20 | XMS_ITS | Encounter Summary ---
Author Organization [facility] Address [address] [id number] Care Team Providers Care Experimental Machinist Name Role Phone Kamran Singh MD Primary Care Provider +1- [phone] Encounter Details Date Type Department Care Team (Latest Contact Info) Description 05/05/2025 10:20 AM EDT Office Visit [facility] [address], [address] [place] [address] Phillip Clark MD [address] [place] [address] Severe aortic regurgitation (Primary Dx) Social History Tobacco Use Types Packs/Day Years [...] Sign Reading Time Taken Comments Blood Pressure 143/63 05/05/2025 9:57 AM EDT Pulse 56 05/05/2025 9:57 AM EDT Temperature - - Respiratory Rate - - Oxygen Saturation 97% 05/05/2025 9:57 AM EDT Inhaled Oxygen Concentration - - Weight 88.7 kg (195 lb 8.8 oz) 05/05/2025 9:57 A M EDT Height - - Body Mass Index 30.63 04/14/2025 12:32 PM EDT documented in this encounter Miscellaneous Notes * Progress Notes - Leeann Solorzano RN - 05/05/2025 10:20 AM EDT 4 * Progress Notes - Prasad Foote PA - 05/05/2025 10:20 AM EDT Reason for visit / Chief Complaint: Aortic Insufficiency History of present illness: Bradley Forrest is a 69 y.o. male with a history of aortic insufficiency, ascending aortic aneurysm, CAD with recent PCI, hypertension, hyperlipidemia, and obesity referred to us in consultation by Dr Singh in regards to aortic insufficiency and ascending aortic aneurysm. Patient was initially seen in our clinic on 03/10/2025 after he was noted to have a murmur on exam which prompted a CT chest and TTE which showed a 4.1 cm aneurysm and a mild degree of aortic insufficiency. At that time we recommended 6 month follow-up with CT chest for ongoing monitoring of the aortic enlargement. Since that visit he had a cardiac catheterization with Dr. Duvall in which he had 2 stents placedand a cardiac MRI revealed severe aortic regurgitation. He was seen on 04/14 and a repeat TTE was ordered. That was completed on 04/25 and showed mod-severe AI and significant LV dilation with a normalEF. He returns today for further surgical planning. He remains symptomatic with dyspnea on exertion, fatigue, occasional palpitations, and infrequent dizziness. His chronic comorbid conditions that impact our treatment planning include: Obesity NYHA Classification: Class II: Mild symptoms with ordinary activity. Active Problems: Patient Active Problem List Diagnosis Date Noted Benign prostatic hyperplasia 05/05/2025 Diabetes (CMS/HCC) 05/05/2025 CAD (coronary artery disease) 04/14/2025 History of coronary angioplasty with insertion of stent 04/14/2025 Ascending aortic aneurysm (CMS/HCC) 04/14/2025 Aortic valve regurgitation 04/14/2025 BMI 30.0-30.9,adult [...] 2 tablets by mouth every morning. Under [place] law, monthly prescriptions (30 days) can be refilled at 25 days and three-month prescriptions (90 days) at 80 days. Please contact the insurance company with questions if refills are denied. Yes Provider, Historical ASPIRIN 81 MG chewable tablet Chew 1 tablet daily. Yes Provider, Historical atenolol (Tenormin) 25 MG tablet Take 1 tablet by mouth daily. Patient taking differently: Take 1 tablet by mouth daily. Takes bid Yes Provider, Historical clopidogrel (Plavix) 75 MG tablet Take 1 tablet by mouth daily. 03/23/25 Yes Provider, Historical empagliflozin (Jardiance) 10 MG Take 1 tablet by mouth daily. Yes Provider, Historical ezetimibe (Zetia) 10 MG tablet Take 1 tablet by mouth daily. Yes Provider, Historical losartan (Cozaar) 50 MG tablet Take 1 tablet by mouth daily. Patient taking differently: Take 2 tablets by mouth 2 times a day. Yes Provider, Historical Repatha SureClick 140 MG/ML solution auto-injector autoinjector Inject 1 mL under the skin every 14days. 02/26/25 Yes Provider, Historical rosuvastatin (Crestor) 40 MG tablet Take 1 tablet by mouth daily. Yes Provider, Historical spironolactone (Aldactone) 25 MG tablet Take 1 tablet by mouth daily. Yes Provider, Historical ibuprofen 200 MG tablet Take 1 tablet by mouth daily. Patient not taking: Reported on 05/05/2025 Provider, Historical Physical exam: Visit Vitals BP (!) 143/63 Pulse 56 SpO2 97% GENERAL: Well-developed, well-nourished. No apparent distress. EYES: No scleral icterus or conjunctivitis HENT: Atraumatic, normocephalic, nares patent, mucus membranes moist NECK: Supple, no JVD, no evidence of bruit bilaterally RESP/CHEST: CTA bilaterally. Normal work of breathing with symmetric expansion noted. CARD: Regular rate and rhythm. Normal S1/S2. + murmur. No rub or gallop. Extremities: No lower extremity edema present. No cyanosis or clubbing. Pedal pulses palpable +2. GI: No organomegaly or masses. Soft, Nontender, nondistended. Bowel sounds present and normoactive x 4 quadrants SKIN: [place], warm, and dry. No rash, sores, or lesions. NEURO: AAOx4. Motor function intact and no focal deficits PSYCH: Mood and affect congruent and appropriate to situation. Labs in last 18 hours: CBC WBC ?? Hb ?? Plt ?? Hct ?? ANC ?? INR ??, PTT ??, Anti-Xa ?? BMP Na ?? Cl ?? BUN ?? Glu ?? K ?? Co2 ?? Cr ?? Ca ?? iCa ?? Mg ??, Phos ?? Lactate ?? LFT AST ?? AlkPhos ?? T Prot ?? ALK ?? Bili ?? Alb ?? D.Bili ?? Imaging: TTE 04/25/25: LV EF 50-55%, LV is severely dilated, normal RV size and function, aortic valve possibly bicuspid, mod-severe aortic regurgitation, mild MR Cardiac Cath Results 04/14/2025: LM: angiographically normal LAD: 10% prox, 30% mid, luminal irregularities within D1 LCX: luminal irregularities RCA: 70% prox, 80% PLB. Successful stenting of RCA and PLB Impression: Severe Aortic Insufficiency Plan: Plan for aortic root reconstruction on 06/14. Return to clinic on 06/09 for pre-op labs and consent. [1] Past Medical History: Diagnosis Date Cardiac murmur Hyperlipidemia Hypertension [2] Past Surgical History: Procedure Laterality Date COLONOSCOPY KNEE SURGERY Right OTHER SURGICAL HISTORY N/A Knee arthroscopy from [facility] SHOULDER SURGERY Right [3] Allergies Allergen Reactions Seafood Hives Lisinopril Cough documented in this encounter Plan of Treatment Upcoming Encounters Date Type Department Care Team (Late st Contact Info) Description 07/07/2025 2:40 PM EST Office Visit [facility] [address], [address] [place] [address] Phillip Clark MD [address] [place] [address] documented as of this encounter Visit Diagnoses Diagnosis Severe aortic regurgitation- Primary documented in this encounter Additional Health Concerns Assessment Noted Time A fall risk assessment has been complete d for the patient 05/05/2025 9:58 AM EDT A Body Mass Index follow-up plan has been documented for the patient 05/05/2025 10:51 AM EDT documented as of this encounter Care Teams Experimental Machinist Relationship Specialty Start Date End Date Kamran Singh MD [address] [place] [address] PCP - General 02/28/25 documented as of this encounter
--- OUTSIDE RECORDS SUMMARY | 2025-06-07 08:30 | XMS_ITS | Encounter Summary ---
Author Organization [facility] Address [address] [place] [address] Care Team Providers Care Development Eng Name Role Phone Kamran Singh MD Primary Care Provider +1- [phone] Encounter Details Date Type Department Care Team (Late st Contact Info) Description 06/07/2025 8:30 AM EDT Pre-Admission Testing [place] [facility] [address], [address] [place] [address] Social History Tobacco Use Types Packs/Day Years [...] any time in the past 12 m [facility], were you homeless or living in a long term (including now)? No 06/15/2025 [facility] Utilities Answer Date Recorded In the [...] with Phillip Clark MD on 06/14/2025 at [facility] under general anesthesia. aortic enlargement, measured as [...] fibrillation, CHF, dysrhythmias, hyperlipidemia, pacemaker or past [place]. hypertension: Exercise tolerance is 1 flight of [...] 2 tablets by mouth every morning. Under [place] law, monthly prescriptions (30days) can be refilled [...] card, photo ID, along with power of family law attorney, guardianship or advanced directives if applicable [...] Office Visit [place] [facility] [address], [address] [place] [address] Phillip Clark MD [address] [place] [address] documented as of this encounter Visit Diagnoses Not on filedocumented in this encounter Additional Health Concerns Assessment Noted Time A fall risk assessment has been complete d for the patient 05/05/2025 9:58 AM EDT A Body Mass Index follow-up plan has been documented for the patient 05/05/2025 10:51 AM EDT documented as of this encounter Care Teams Development Eng Relationship Specialty Start Date End Date Kamran Singh MD [address] [place] [address] PCP - General 02/28/25 documented as of this encounter
--- OUTSIDE RECORDS SUMMARY | 2025-06-09 12:20 | XMS_ITS | Encounter Summary ---
Author Organization [facility] Address [address] [id number] Care Team Providers Care Superintendent Seed Mill Name Role Phone Kamran Singh MD Primary Care Provider +1- [phone] Encounter Details Date Type Department Care Team (Latest Contact Info) Description 06/09/2025 12:20 PM EDT Office Visit [facility] [address], [address] [place] [address] Phillip Clark MD [address] [place] [address] Severe aortic regurgitation (Primary Dx) [...] Notes * Progress Notes - Lorelei Dominique, ACTIVITIES LEADER - 06/09/2025 12:20 PM EDT Reason for [...] 2 tablets by mouth every morning. Under [employer] law, monthly prescriptions (30 days) can be refilled at 25 days and three-month prescriptions (90 days) at 80 days. Please contact the insurance company with questions if refills are denied. Patient taking differently: Take 2 tablets by mouth every 4 hours as needed. Under [employer] law, monthly prescriptions (30 days) can be [...] Description 07/07/2025 2:40 PM EST Office Visit [facility] Cardioth[facility]acic [address], [address] [place] [address] Phillip Clark MD [address] [place] [phone] documented as of this encounter Results * [...] LAB HEMATOLOGY METHOD 06/09/2025 3:49 PM EDT [facility] RBC Count 5.62 4.60 - 6.10 10*6/uL LAB HEMATOLOGY METHOD 06/09/2025 3:49 PM EDT [facility] HGB 15.6 13.7 - 17.5 g/dL LAB HEMATOLOGY METHOD 06/09/2025 3:49 PM EDT [facility] HCT 49.2 40.0 - 51.0 % LAB HEMATOLOGY METHOD 06/09/2025 3:49 PM EDT [facility] Platelet Count 205 155 - 369 10*3/uL LAB HEMATOLOGY METHOD 06/09/2025 3:49 PM EDT [facility] MCV 88 79 - 98 fL LAB HEMATOLOGY METHOD 06/09/2025 3:49 PM EDT [facility] MCH 27.8 26.0 - 32.0 pg LAB HEMATOLOGY METHOD 06/09/2025 3:49 PM EDT [facility] MCHC 31.7 30.7 - 35.5 g/dL LAB HEMATOLOGY METHOD 06/09/2025 3:49 PM EDT [facility] RDW 15.3(H) 11.5 - 14.5 % LAB HEMATOLOGY METHOD 06/09/2025 3:49 PM EDT [facility] MPV 10.6 8.8 - 12.5 fL LAB HEMATOLOGY METHOD 06/09/2025 3:49 PM EDT [facility] nRBC 0.0 <=0.0 per 100 WBCs LAB HEMATOLOGY METHOD 06/09/2025 3:49 PM EDT [facility] Blood Venous blood specimen / Unknown Venipuncture / Unknown 06/09/2025 1:39 PM EDT 06/09/2025 1:40 PM EDT us Phillip Clark MD LAB BLOOD ORDERABLES Final R esult [facility] [address] [place] [address] * Comprehensive Metabolic Panel, Plasma (06/09/2025 1:39 PM EDT) [facility] Glucose, Plasma 86 74 - 99 mg/dL 06/09/2025 3:57 PM EDT [facility] BUN, Plasma 15 8 - 23 mg/dL 06/09/2025 3:57 PM EDT [facility] Creatinine, Plasma 0.85 0.70 - 1.20 mg/dL 06/09/2025 3:57 PM EDT [facility] BUN/Creatinine Ratio 18 06/09/2025 3:57 PM EDT [facility] Sodium, Plasma 139 136 - 145 mmol/L 06/09/2025 3:57 PM EDT [facility] Potassium, Plasma 4.7 3.6 - 4.9 mmol/L 06/09/2025 3:57 PM EDT [facility] Chloride, Plasma 107 97 - 107 mmol/L 06/09/2025 3:57 PM EDT [facility] CO2, Plasma 24 22 - 29 mmol/L 06/09/2025 3:57 PM EDT [facility] Anion Gap 8 6 - 16 mmol/L 06/09/2025 3:57 PM EDT [facility] Total Calcium, Plasma 9.0 8.9 - 10.2 mg/dL 06/09/2025 3:57 PM EDT [facility] Total Protein 6.6 6.3 - 7.9 g/dL 06/09/2025 3:57 PM EDT [facility] Albumin, Plasma 4.2 3.5 - 5.2 g/dL 06/09/2025 3:57 PM EDT [facility] AST, Plasma 23 10 - 50 U/L 06/09/2025 3:57 PM EDT [facility] ALT, Plasma 23 10 - 50 U/L 06/09/2025 3:57 PM EDT [facility] Alkaline Phosphatase, Plasma 66 40 - 115 U/L 06/09/2025 3:57 PM EDT [facility] Total Bilirubin, Plasma 0.8 0.2 - 1.1 mg/dL 06/09/2025 3:57 PM EDT [facility] eGFRcr 94.1 mL/min/1.7 3m*2 06/09/2025 3:57 PM EDT [facility] Comment:Reported eGFRcr in m L/min/1.73m2 is based the CKD-EPI 2020 equation that does not use a race coefficient. Blood Venous blood specimen / Unknown Venipuncture / Unknown 06/09/2025 1:39 PM EDT 06/09/2025 1:40 PM EDT us Phillip Clark MD LAB BLOOD ORDERABLES Final R esult [facility] [address] [place] [address] * (ABNORMAL) Hemoglobin A1c (06/09/2025 1:39 PM EDT) Hemoglobin A1c 5.7(H) <5.7 % 06/09/2025 6:09 PM EDT [facility] Blood Venous blood specimen / Unknown Venipuncture / Unknown 06/09/2025 1:39 PM EDT 06/09/2025 1:40 PM EDT Narrative [facility] - 06/09/2025 6:09 PM EDT HA1C Interpretive Data: Diagnosis of Diabetes: Diabetic > or = 6.5% Pre-diabetic 5.7 to 6.4% Non-diabetic < or = 5.6% Glycemic Targets for Type I and Type II Diabetics: Non- Adults <7.0% Adults <6.0% Children and Adolescents <7.5% Source: [place] [employer]. Standards of medical care in diabetes,2017. Diabetes Care.2017:40 (suppl 1):S1-S135. Phillip Clark MD LAB BLOOD ORDERABLES Final R esult [facility] [address] [place] [address] * Protime-INR (06/09/2025 1:39 PM EDT) Prothrombin Time 13.6 12.0 - 14.3 sec LAB COAGULATION METHOD 06/09/2025 3:58 PM EDT [facility] INR 1.0 0.9 - 1.1 LAB COAGULATION METHOD 06/09/2025 3:58 PM EDT [facility] Blood Venous blood specimen / Unknown Venipuncture / Unknown 06/09/2025 1:39 PM EDT 06/09/2025 1:40 PM EDT Narrative [facility] - 06/09/2025 3:58 PM EDT OPTIMAL INR RANGES FOR PATIENT ON ORAL ANTICOAGULANT THERAPY Prevention of venous thromboembolism INR 2.0 to 3.0 In patients with heart disease: Atrial fibrillation INR 2.0 to 3.0 Valvular heart disease INR 2.0 to 3.0 Tissue heart valves INR 2.0 to 3.0 Mechanical prosthetic valves INR 2.5 to 3.5 Prevention of recurrent DE INR 2.5 to 3.5 Phillip Clark MD LAB BLOOD ORDERABLES Final R esult Performing Organization Address City/[facility]/ZIP Co de Phone Number [facility] [address] [place] [address] * APTT (06/09/2025 1:39 PM EDT) aPTT 33 25 - 35 sec LAB COAGULATION METHOD 06/09/2025 3:[address] [facility] Blood Venous blood specimen / Unknown Venipuncture / Unknown 06/09/2025 1:39 PM EDT 06/09/2025 1:40 PM EDT Phillip Clark MD LAB BLOOD ORDERABLES Final R esult Performing Organization Address [facility] [place] [address] * Type & Screen, 30 Days (06/09/2025 [...] PM EDT Phillip Clark MD LAB BLOOD BANK TEST ORDERABL ES Final Result BLOOD BANK [address] [place] [address], documented in this encounter Visit Diagnoses Diagnosis Severe aortic regurgitation- Primary Severe aortic regurgitation documented in this encounter Additional Health Concerns Assessment Noted Time A fall risk assessment has been complete d for the patient 06/09/2025 12:15 PM EDT A Body Mass Index follow-up plan has been documented for the patient 06/09/2025 2:00 PM EDT documented as of this encounter Care Teams Superintendent [employer] Mill Relationship Specialty Start Date End Date Kamran Singh MD [address] [place] [address] PCP - General 02/28/25 documented as of this encounter
--- OUTSIDE RECORDS SUMMARY | 2025-06-09 13:42 | XMS_ITS | Encounter Summary ---
Author Organization [facility] Address [address] [place] [address] Care Team Providers Care Informatica Developer Name Role Phone Kamran Singh MD Primary Care Provider +1- [phone] Encounter Details Date Type Department Care Team (Latest Contact Info) Description 06/09/2025 1:42 PM EDT - 06/09/2025 11:59 PM EDT Hospital Encounter [place] [facility] [address], [address] [place] [phone] Severe aortic regurgitation Discharge Disposition: Home or [...] any time in the past 12 m [facility], were you homeless or living in a nursing home (including now)? No 06/15/2025 [facility] Utilities Answer Date Recorded In the [...] Description 07/07/2025 2:40 PM EST Office Visit [place] [facility] [address], [address] [place] [address] Phillip Clark MD [address] [place] [address] documented as of this encounter [...] documented as of this encounter Care Teams Informatica Developer Relationship Specialty Start Date End Date Kamran Singh MD [address] [place] [address] PCP - General 02/28/25 documented as of this encounter
--- OUTSIDE RECORDS SUMMARY | 2025-06-14 05:18 | XMS_ITS | Encounter Summary ---
Author Organization [facility] Address [address] [id number] Care Team Providers Care Spice Fumigator Name Role Phone Kamran Signh MD Primary Care Provider [phone]- [phone] Reason for Referral * Consultation (Routine) - Authorized Specialty Diagnoses / Procedures Referred By Nathalia garcia Referred To Contact Cardiac Rehabilitation Diagnoses S/P AVR Phillip Clark MD [address] [address] Phone: tel: fax: Referral ID Status Reason Start Date Expiration Date V isits Requested Visits Authorized [id number] Authorized 06/20/2025 12/20/2026 1 1 Reason for Visit * Auth/Cert (Routine) Specialty Diagnoses / Procedures Referred By Nathalia garcia Referred To Contact Diagnoses Severe aortic regurgitation Severe aortic regurgitation [I35.1] Procedures MI -AORT GRF W/CARD BYP F/AORTIC DISSECTION AORTIC ROOT RECONSTRUCTION Phillip Clark MD [address] [address] Phone: tel: fax: [facility] OPERATING ROOM [address] [place] [address] Phone: tel: Referral ID Status Reason Start Date Expiration Date Visits Re quested Visits Authorized [id number] 1 1 Encounter Details Date Type Department Care Team (Latest Contact Info) Description 06/14/2025 5:18 AM EDT - 06/20/2025 2:25 PM EDT Hospital Encounter [facility] Inpatient [address] [place] [address] Phillip Clark MD [address] [place] [address] Other secondary hypertension (Primary Dx); [...] time in the past 12 m [facility], were you homeless or living in a chcf (including now)? No 06/15/2025 [facility] Utilities Answer Date Recorded In [...] and prefers to attend at [facility]. [facility] will contact Mr. Forrest to discuss and [...] 2. Eligibility: Heart valve surgery 3. Exceptions/exclusions: [facility] Cardiac Rehab Exclusions: None 4. Referral: [facility] Cardiac Rehab Referral: Patient agreed with referral to the cardiac rehabilitation program at [facility] in [place], [place], phone number [phone]. 5. Information sent: Information Sent: Appropriate information will be sent to the receiving cardiac rehabilitation program.: * Progress Notes - Oumou Berger - 06/20/2025 10:15 AM EDT Case Management Discharge Note Bradley Forrest 69 y.o. 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: Primary Caregiver: Self Assistance Available at Discharge: Current Outpatient/Agency/Support Group: DME Availability of Care Givers (#Hours): Other (comment) (As needed) Family/Dusting And Brushing Machine Operator(s) Willingness Assessed to care for patient at home: Yes Family/Dusting And Brushing Machine Operator(s) Readiness Assessed to care for patient at [...] Recieved By: patient Follow-up: Jolynn Pollard APRN [facility] Cardiology [address] [place] [address] [address], [place] [address] Go on 08/22/2025 Your cardiology appointment is on August 22 at 11am Please arrive 15 minutes early and bring UPDATED medication list. [address] [facility] [id number] Go on 06/22/2025 Your first appointment for your Warfarin/Coumadin management is this FridayJune 22 at 11:30am. Please report to [facility] front admission desk and tell them you are checking in to the Pharmacy Anticoagulation Clinic. The admissions gate attendant will call the pharmacist who will meet you in the lobby and escort you to the clinic. Please bring all medications you are taking and your insurance card. If you have any issues please call [phone] ext: [phone] and then choose option 2. Discharge Transportation: Transportation Anticipated: family or friend will provide Transportation Home at Discharge: Family/Friend will Provide Follow Up Transport: Transportation Needed to Follow up Appoinments: Family/Friend will Provide Additional Comments: SW spoke with primary team this date who indicate the pt is medically stable for DC this date and does not require further [facility]-based care. Pt to DC [...] PCP name and Address: Kamran Singh MD [address] [place] [address] / [facility] [address] Referring provider name and address: No referring [...] Your Medications These medications were sent to [facility] [place], [place] - [address] About Us [facility] A. [address] [facility] A., [place] [address] acetaminophen 325 MG tablet clopidogrel 75 MG [...] Center 07/07/2025 2:40 PM Phillip Clark MD [facility] Test Results Pending At Discharge N/A Pertinent [...] Plan Anticoagulation Plan Warfarin Pharmacist Managed?: No [facility] Warfarin Dosing Protocol Followed?: No Reason for Protocol Departure: CT Surgery Bridging Agent in Conjunction With Warfarin? : No INR Monitoring Frequency: Monitor INR daily Patient Education : Complete and documented Warfarin dosing and adjustment per CT surgery provider. Transitions of Care Outpatient provider managing warfarin after [facility] discharge: TBD - possibly clinic Recommended date for outpatient INR assessment: TBD - of note, enoxparin copay $0 for 7 day supply Will continue to follow patient's clinical progress daily. Libia Stevenson PharmD, [facility] Clinical Pharmacist - Cardiothoracic Surgery Available via [employer] * Progress Notes - Phillip Clark MD [...] Ongoing, Progressing Intervention: Promote Activity and Functional [place] Flowsheets (Taken 06/19/20251704 by Vicente Hussein RN) Activity Assistance Provided: assistance, stand-by Adaptive Equipment Use: use encouraged Self-Care Promotion: independence encouraged Problem: Self-Care Deficit Goal: Improved Ability to Complete Activities of Daily Living Outcome: Ongoing, Progressing Intervention: Promote Activity and Functional [place] Flowsheets (Taken 06/19/20251704 by Vicente Hussein, RN) [...] Ongoing, Progressing Intervention: Promote Activity and Functional [place] Flowsheets (Taken 06/19/20251704) Activity Assistance Provided: assistance, [...] Ongoing, Progressing Intervention: Promote Activity and Functional [place] Flowsheets (Taken 06/19/20251704) Activity Assistance Provided: assistance, [...] Plan Anticoagulation Plan Warfarin Pharmacist Managed?: No [facility] Warfarin Dosing Protocol Followed?: No Reason [...] rhythm - continue warfarin CT surgery pager [phone] [1] acetaminophen, 650 mg, Oral, q4h DEMETRIUS [...] Ongoing, Progressing Intervention: Promote Activity and Functional [place] Flowsheets (Taken 06/19/2025344) Activity Assistance Provided: assistance, stand-by Self-Care Promotion: independence encouraged Problem: Self-Care Deficit Goal: Improved Ability to Complete Activities of Daily Living Outcome: Ongoing, Progressing Intervention: Promote Activity and Functional [place] Flowsheets (Taken 06/19/2025344) Activity Assistance Provided: assistance, [...] from the original note were not included. [id number] Tratamiento para contracciones ventriculares prematuras (CVP) Las [...] Confusi??n. Last Reviewed Date: 2024 00:00:00 ?? [id number] [employer]. All rights reserved. This information is not intended as a substitute for professional medical care. Always follow your healthcare professional's instructions. * Gabriel Singh - Brittaney Dumas RN - 06/18/2025 6:29 PM EDT Images from the original note were not included. [id number] C??mo comprender las contracciones ventriculares prematuras (CVP) [...] se??al activa partes cercanas del coraz??n contraer. K[place]a permite que el coraz??n se comprima de [...] card??acos anteriores, el coraz??n expulsar?? muypoca mushtaq. Keshena provoca aria sensaci??n de pausa entre latidos. El siguiente latido card??aco suele ser m??s bea, ya que la pausa lo permite que el coraz??n descanse y se llene de mushtaq. Keshena lleva a aria sensaci??n de latido card??aco [...] port??til jameson unos d??as o incluso semanas. [place]a puede ayudar a diagnosticar los CVP que [...] im??genes del coraz??n. ? An??lisis de mushtaq. Keshena se hace para comprobar los electrolitos y concentraciones tiroideas. Last Reviewed Date: 2024 00:00:00 ?? [id number] [employer]. All rights reserved. This information is not intended as a substitute for professional medical care. Always follow your healthcare professional's instructions. * Gabriel Singh - Brittaney Dumas RN - 06/18/2025 6:29 PM EDT Images from the original note were not included. [id number] Tratamiento para contracciones ventriculares prematuras (CVP) Las [...] tratamiento por otro problema card??aco, seven enfermedad card??megna o insuficiencia card??megan, ab CVP pueden disminuir.Por [...] Confusi??n. Last Reviewed Date: 2024 00:00:00 ?? 9839-8826 [employer]. All rights reserved. This information is not intended as a substitute for professional medical care. Always follow your healthcare professional's instructions. * Gabriel Singh - Brittaney Dumas RN - 06/18/2025 6:29 PM EDT Images from the original note were not included. [id number] C??mo comprender las contracciones ventriculares prematuras (CVP) [...] se??al activa partes cercanas del coraz??n contraer. Keshena permite que el coraz??n se comprima de [...] card??acos anteriores, el coraz??n expulsar?? muypoca mushtaq. Keshena provoca aria sensaci??n de pausa entre latidos. El siguiente latido card??aco suele ser m??s bea, ya que la pausa lo permite que el coraz??n descanse y se llene de mushtaq. Keshena lleva a aria sensaci??n de latido card??aco [...] port??til jameson unos d??as o incluso semanas. Keshena puede ayudar a diagnosticar los CVP que [...] im??genes del coraz??n. ? An??lisis de mushtaq. Keshena se hace para comprobar los electrolitos y concentraciones tiroideas. Last Reviewed Date: 2024 00:00:00 ?? [id number] [employer]. All rights reserved. This information is not intended as a substitute for professional medical care. Always follow your healthcare professional's instructions. * Gabriel Singh - Brittaney Dumas RN - 06/18/2025 6:28 PM EDT Images from the original note were not included. [id number] Treatment for Premature Ventricular Contractions (PVCs) Premature [...] confusion Last Reviewed Date: 2024 00:00:00 ?? 9114-3998 The [employer]. All rights reserved. This information is not intended as a substitute for professional medical care. Always follow your healthcare professional's instructions. * Gabriel GonsalezALONZO - Brittaney Dumas RN - 06/18/2025 6:28 PM EDT Images from the original note were not included. 77584 Understanding Premature Ventricular Contractions (PVCs) Premature ventricular [...] to 2 weeks. ? Insertable (or implantable) night manager. This small device is implanted under the [...] levels. Last Reviewed Date: 2024 00:00:00 ?? 9259-4947 The [employer]. All rights reserved. This information is not [...] Plan Anticoagulation Plan Warfarin Pharmacist Managed?: No [facility] Warfarin Dosing Protocol Followed?: No Bridging Agent in Conjunction With Warfarin? : Yes Ordered Agents: Enoxaparin Bridging Agent Dose: 70mg BID INR Monitoring Frequency: Monitor INR daily Patient Education : Complete and documented Warfarin dosing and adjustment per CT surgery provider. Transitions of Care Outpatient provider managing warfarin after [facility] discharge: TBD - possibly clinic Recommended [...] Ongoing, Progressing Intervention: Promote Activity and Functional [place] Flowsheets (Taken 06/18/202558) Activity Assistance Provided: assistance, 1 person Self-Care Promotion: independence encouraged Problem: Self-Care Deficit Goal: Improved Ability to Complete Activities of Daily Living Outcome: Ongoing, Progressing Intervention: Promote Activity and Functional [place] Flowsheets (Taken 06/18/202558) Activity Assistance Provided: assistance, [...] from the original note were not included. [id number] Warfarin IMPORTANT WARNING: Warfarin may cause severe [...] doctor or pharmacist will give you the senior sales engineer's patient information sheet (Medication Guide) when you begin treatment with warfarin and each time you refill your prescription. Read the information carefully and ask your doctor or pharmacist if you have any questions. You can also visit the Food and Drug Administration (FDA) website (https://www.fda.gov/downloads/Drugs/DrugSafety/cxn606586.pdf) or the senior sales engineer's website to obtain the Medication Guide. Talk [...] Echinacea, garlic, Ginkgo biloba, ginseng, goldenseal, and [place]'s wort; omeprazole (Prilosec); famotidine (Pepcid AC); aspirin [...] amounts of vitamin K-containing food on a xixi-jv-ufwb basis. Do not eat large amounts of [...] be awakened, immediately call emergency services at 195. Symptoms of overdose may include the following: [...] of all of the prescription and nonprescription (ssig-pml-dovnsww) medicines, vitamins, minerals, and dietary supplements you [...] or pharmacist about specific clinical use. The [place] [employer] represents that the information provided hereunder was formulated with a reasonable standard of care, and in conformity with professional standards in the field. The [place] [employer] makes no representations or warranties, express or implied, including, but not limited to, any implied warranty of merchantability and/or fitness for a particular purpose, with respect to such information and specifically disclaims all such warranties. Users are advised that decisions regarding drug therapy are complex medical decisions requiring the independent, informed decision of an appropriate health hospice spiritual care coordinator, and the information is provided for informational purposes only. The entire monograph for a drug should be reviewed for a thorough understanding of the drug's actions, uses and side effects. The [place] [employer] does not endorse or recommend the use of any drug.The information is not a substitute for medical care. AHFS?? Patient Medication Information?. ?? Copyright, 2023. The [place] [employer]??, [address], [address], [place], [place]. All Rights Reserved. Duplication for commercial use must be authorized by [facility]. Selected Revisions: February 13, 2017. AHFS?? Patient Medication Information?. ?? Copyright, 2024 * Gabriel Singh - Sydni Munson RN - 06/17/2025 12:42 PM EDT Images from the original note were not included. 51649 Recovery From Heart Surgery: The First Few [...] stop Last Reviewed Date: 2024 00:00:00 ?? 1331-3376 The Tern. All rights reserved. This information is not [...] arms away from your body. * [facility] - Sydni Munson RN - 06/17/2025 12:42 PM EDT Images from the original note were not included. 14866 After Heart Valve Surgery For the first [...] headache Last Reviewed Date: 2023 00:00:00 ?? 5104-7910 The T[employer]. All rights reserved. This information is not intended as a substitute for professional medical care. Always follow your healthcare professional's instructions. * Discharge Instr - Other Orders - Sydni Munson RN - 06/17/2025 12:39 PM EDT Please arrive 30 minutes early for your appointment with Dr. Clark Prior to your appointment, go to the radiology department on the 1st floor of the [facility] near [facility] for [...] your incisions. Do NOT lift, push, or machine tack puller 5 pounds for six weeks. Do [...] Sydni Munson CT Surgery Nurse Navigator at [phone] Friday through Friday 7am- 3:30pm [facility] [phone] after 3:30 pm, weekends and holidays - ask for the CT surgeon functional mental disability teacher. * Progress Notes - Brooke Valdez PTA - 06/17/2025 11:58 AM EDT Physical Therapy Treatment Patient Name: Bradley Forrest Today's Date: 06/17/2025 Total Treatment Time: 39 min PT Discharge Recommendations: Home with assistance Equipment Recommended: Rollator Subjective The patient states, I am doing okay. Participants in Care Family/Caregiver Present: Yes Family/Caregiver: Spouse, Other (Specify) (sister and brother) Customer Services Manager: Not Applicable Presentation Oxygen: None (Room [...] sequencing. Bed Mobility Exam: Rolling/Turning Level of [place]: Minimum assist (75% patient effort) Physical/Nonphysical Assist: Verbal Cues, Set-up required Bed Mobility Exam: Scooting/Bridging Level of [place]: Minimum assist (75% patient's effort) (to scoot to edge of bed with cues to adhere to sternal precautions) Physical/Nonphysical Assist: Verbal Cues, Set-up required Bed Mobility Exam: Supine to Sit Level of [place]: Minimum assist (75% patient's effort) Physical/Nonphysical Assist: Verbal Cues, Set-up required, Additional assist utilized for safety Bed Mobility Exam: Sit to Supine Level of [place]: Minimum assist (75% patient's effort) Physical/Nonphysical Assist: Verbal Cues, Set-up required, Additional assist utilized for safety Transfers Transfer Intervention: Verbal cues provided for correct bilateral hand and foot placement during sit to stand transfers. Transfer Interventions: The patient stood at the sink for hygiene approximately 8-10 minutes with CGA of 1 person. 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 Level of [place] Adaptive Equipment Utilized Comments Feeding Grooming SBA Standing sinkside stood times 8 minutes in bathroom. Bathing Upper Body Dressing Lower Body Dressing Sock Level of Assistance: Moderate assistance, Minimal verbal cues Toileting SBA Toilet IADLs Health Management Community Re-Entry BALANCE Postural Appearance INTERVENTIONS Level of [place] Balance Support Comments Static Sit Standby assist [...] weight shifting to promote safety. Level of [place] Physical/Non-physical Assist Adaptive Equipment Utilized Rolling/ Turning [...] Plan Anticoagulation Plan Warfarin Pharmacist Managed?: No [facility] Warfarin Dosing Protocol Followed?: No Bridging Agent in Conjunction With Warfarin? : Yes Ordered Agents: Enoxaparin Bridging Agent Dose: 70mg BID INR Monitoring Frequency: Monitor INR daily Patient Education : Complete and documented Warfarin dosing and adjustment per CT surgery provider. Transitions of Care Outpatient provider managing warfarin after [facility] discharge: TBD - possibly clinic Recommended [...] the video go to this web address: https://bit.ly/0J59iMm Or, scan this QR code with your smart phone ?? [employer] * Maria Esther Houston PharmD - 06/17/2025 9:21 AM EDT Images from the original note were not included. Warfarin: Your INR Goal - Video Understand what the INR test measures, and what your healthy INR level should be. To view the video go to this web address: https://bit.ly/9Dmx8WT Or, scan this QR code with your [...] the video go to this web address: https://bit.ly/[email or web address] Or, scan this QR code with your [...] Certain other vegetables and fruits, including asparagus, [place] sprouts, and kiwifruit ? Certain soy products, such as natto (a traditional Wolof dish of fermented soybeans) Some vegetable oils [...] reduced-fat cheese, served with a whole grain Yi muffin ? A grilled chicken sandwich on whole grain bread with raw spinach*, tomato slices, and mustard ? Oven-roasted fish served with steamed broccoli* and medley of whole grain pasta, carrots, onions,and mushrooms * Foods higher in vitamin K Last Reviewed Date: 2025 00:00:00 ?? 8183-8481 The Tern. All rights reserved. This information is not [...] the video go to this web address: https://bit.[employer]/4awUWKN Or, scan this QR code with your [...] the video go to this web address: https://[facility] [facility] [employer]/1P8UQtR Or, scan this QR code with your smart phone ?? [employer] [facility] * Gabriel OnTRISTAN - Maria Esther Kent PharmD - 06/17/2025 9:21 AM EDT Images from the original note were not included. [id number] Warfarin IMPORTANT WARNING: Warfarin may cause severe [...] doctor or pharmacist will give you the senior sales engineer's patient information sheet (Medication Guide) when you begin treatment with warfarin and each time you refill your prescription. Read the information carefully and ask your doctor or pharmacist if you have any questions. You can also visit the Food and Drug Administration (FDA) website (https://www.fda.gov/downloads/Drugs/DrugSafety/hoo874119.pdf) or the senior sales engineer's website to obtain the Medication Guide. Talk [...] amounts of vitamin K-containing food on a oynt-ov-kmqx basis. Do not eat large amounts of [...] be awakened, immediately call emergency services at 391. Symptoms of overdose may include the following: [...] of all of the prescription and nonprescription (uyjf-aeo-yfadvzl) medicines, vitamins, minerals, and dietary supplements you [...] or pharmacist about specific clinical use. The [place] [employer] represents that the information provided hereunder was formulated with a reasonable standard of care, and in conformity with professional standards in the field. The [place] [employer] makes no representations or warranties, express or implied, including, but not limited to, any implied warranty of merchantability and/or fitness for a particular purpose, with respect to such information and specifically disclaims all such warranties. Users are advised that decisions regarding drug therapy are complex medical decisions requiring the independent, informed decision of an appropriate health hospice spiritual care coordinator, and the information is provided for informational purposes only. The entire monograph for a drug should be reviewed for a thorough understanding of the drug's actions, uses and side effects. The [place] [employer] does not endorse or recommend the use of any drug.The information is not a substitute for medical care. AHFS?? Patient Medication Information?. ?? Copyright, 2023. The [place] [employer]??, [address], [address], [place], [place]. All Rights Reserved. Duplication for commercial use must be authorized by [facility]. Selected Revisions: February 13, 2017. AHFS?? Patient [...] Ongoing, Progressing Intervention: Promote Activity and Functional [place] Flowsheets (Taken 06/17/2025108) Activity Assistance Provided: assistance, 1 person Self-Care Promotion: independence encouraged Problem: Self-Care Deficit Goal: Improved Ability to Complete Activities of Daily Living Outcome: Ongoing, Progressing Intervention: Promote Activity and Functional [place] Flowsheets (Taken 06/17/2025108) Activity Assistance Provided: assistance, [...] Note Bradley Forrest 69 y.o. male CSN: [id number] Admission: 06/14/2025 5:18 AM Primary Problem: Severe [...] Problem(s): Weaning from mechanically assisted ventilation initiated ([facility] (Ofwsklwf64/20/2025) Arrived intubated and sedated post-op - fast [...] 06/14/25 Brachial 06/14/25 0808 Brachial 2 GCS: Sharon Coma Scale Score: 15 Review of Systems [...] post median sternotomy. Interval removal of the Bagwell-Ganzcatheter, right IJ sheath remains in place with tip in the mid to distal SVC. No pneumothorax or pleural effusions. Ongoing interstitial edema. 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 Customer Services Manager (if applicable) OBJECTIVE & INTERVENTIONS PAIN [...] ACTIVITY Treatment Minutes 24 TRANSFERS Level of [place] Physical/Non- physical Assist Adaptive Equipment Utilized Sit to Stand Contact guard Verbal Cues, Additional assist utilized for safety, 1 person + 1 person to manage equipment (verbal cuing for sternal precautions) Stand to sit Contact guard Verbal Cues, 1 person + 1 person to manage equipment Interventions BALANCE Postural Appearance Posture: Rounded shoulders Level of [place] Balance Support Interventions Static Sit Standby assist Feet supported Dynamic Sit Contact guard Feet supported Static Stand Standby assist Right upper extremity support, Left upper extremity support Pt with mild dizziness when coming to stand from sitting which subsided with roughly 30 seconds of static standing Dynamic Stand Standby assist Right upper extremity support, Left upper extremity support AMBULATION Level of [place] Distance Adaptive Equipment Utilized Ambulation Standby assist, [...] Plan Anticoagulation Plan Warfarin Pharmacist Managed?: No [facility] Warfarin Dosing Protocol Followed?: No Reason for Protocol Departure: CT Surgery Bridging Agent in Conjunction With Warfarin? : Yes Ordered Agents: Enoxaparin Bridging Agent Dose: Enoxaparin 70mg bid to start 10 pm INR Monitoring Frequency: Monitor INR daily Patient Education : Incomplete Warfarin dosing and adjustment per CT surgery provider. Transitions of Care Outpatient provider managing warfarin after [facility] discharge: TBD Recommended date for outpatient INR assessment: TBD Will continue to follow patient's clinical progress daily. Sy Fernández PharmD PGY-2 Cardiology Relief Pilot Available via Secure Chat * Progress Notes [...] Optimize Mobility Flowsheets Taken 06/15/20251999 by Svetlana Rielly RN Activity Management: activity encouraged Taken 06/15/20251699 by Bony Thomsa RN Assistive Device Utilized: four wheel walker Taken 06/14/20252154 by Svetlana Reilly RN Positioning/Transfer Devices: wedge pillows repositioning sheet Problem: Self-Care Deficit Goal: Improved Ability to Complete Activities of Daily Living Outcome: Ongoing, Progressing Intervention: Promote Activity and Functional [place] Flowsheets Taken 06/15/20251699 by Bony Thomas RN [...] Ongoing, Progressing Intervention: Promote Activity and Functional [place] Flowsheets Taken 06/15/2025 1700 by Bony Thomas RN Activity Assistance Provided: assistance, stand-by Taken 06/14/20252154 by Svetlana Reilly RN Self-Care Promotion: independence encouraged * Consults - Nat Singletary RD - 06/15/2025 2:23 PM EDTAssociated Order(s): IP CONSULT TO NUTRITION SERVICES Adult Nutrition Evaluation Note Bradley Forrest 69 y.o. 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) GI Symptoms: Nausea, Vomiting Edema: Generalized Allergies: [...] 30.07 Weight Evaluation: Obese-Class 1 (BMI 30-34.9) Shannon Body Weight (kg): 67.3 Percent Shannon Body Weight: 130 Adjusted Body Weight (kg): 72.4 Estimated Needs: Kcal/ K-28 Kcal Provided: 8874-2007 Metabolic Cart Study Results: Current Nutrition Intake: Diet Order: Adult Diet Diet Texture: Clear liquid Adult Carbohydrate Restriction: Consistent CHO 2 (0549-9553 Venkat, 80 g/meal) Fat Restriction: Cardiac Percent Meals Eaten (%): establishing Diet Experience and Nutrition History: Diet Education Provided: Will monitor Pertinent home medications: Islam needs: Nutrition Focused Physical Exam: Physical exam performed on (date): 06/15 Temples (muscles): None Clavicle (muscle): None Shoulder (muscle): None Orbital (fat): None Triceps (fat): None Energy Intake: reported adequate 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 male CSN: [id number] Admission: 06/14/2025 5:18 AM Primary Problem: Severe aortic regurgitation Block Sealer reviewed chart and spoke with the patient at bedside to complete this Initial Case Management Assessment. PCP: Kamran Singh MD Emergency Contact: Extended Emergency Contact Information Primary Emergency Contact: Naheed Forrest [address]: [address] [place] [address] [address] [place] [address] [employer] [facility] Relation: Spouse Insurance: Primary Visit Coverage Payer Plan Sponsor Code Group Number Group Name MARY HERNANDEZ [facility] [id number] Primary Visit Coverage Subscriber Subscriber ID Subscriber Name Subscriber SSN Subscriber Address [id number] Bradley Forrest [id number] [place] [address] JITENDRA [facility] Secondary Visit Coverage Payer Plan Sponsor Code Group Number Group Name MEDICARE MEDICARE A & B Secondary Visit Coverage Subscriber Subscriber ID Subscriber Name Subscriber SSN Subscriber Address [id number] Bradley Forrest [id number] [place] [address] JITENDRA [facility] Patient information: Primary Caregiver: Self Support System: Immediate family Daily Living Activities: Functional Status: Independent Living Arrangements: Spouse/Significant other Type of Residence: Private residence, Single Level [address] [place] [address] Current DME: Equipment Currently Used at Home: [...] DME Provider: n/a Living Will/Advance Directive/Power of Police Radio Dispatcher /Guardian: Unable to assess: No Have you [...] prior HH/O2/HD/Abx. PCP is Kamran Singh. Has [employer] insurance and uses [facility]. Family to transport and assist as [...] Plan Anticoagulation Plan Warfarin Pharmacist Managed?: No [facility] Warfarin Dosing Protocol Followed?: No Reason [...] progress daily. Sy Fernández PharmD PGY-2 Cardiology Relief Pilot Available via Secure Chat * Assessment & [...] appropriate * Assessment & Plan Note - Belel Smith MD - 06/15/2025 10:46 AM EDT [...] Problem(s): Weaning from mechanically assisted ventilation initiated ([facility]) (Iyyfnqke28/20/2025) Arrived intubated and sedated post-op - fast [...] Weaning from mechanically assisted ventilation initiated (CMS/HCC) (Dlwpuomp41/20/2025) Arrived intubated and sedated post-op - fast [...] 06/15/2025 Weaning from mechanically assisted ventilation initiated ([facility]) 06/14/2025 Diabetes 05/05/2025 Benign prostatic hyperplasia 05/05/2025 CAD (coronary artery disease) 04/14/2025 History of coronary angioplasty with insertion of stent 04/14/2025 Ascending aortic aneurysm (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) Level of Mobility: Ambulatory- community Mobility [place]: Independent gait without device History of Falls: [...] Mobility Exam: Sit to Supine Level of [place]: Maximum assist (25% patient's effort) Physical/Nonphysical Assist: Verbal Cues, Maximal cues, Additional assist utilized for safety Transfers Transfer Exam: Sit to stand Level of [place]: Moderate assist (50% patient's effort) Physical/Nonphysical Assist: Verbal Cues, Moderate cues, Additional assist utilized for safety Assistive Device: Rollator Transfer Exam: Stand to Sit Level of [place]: Minimum assist (75% patient's effort) Physical/Nonphysical Assist: [...] activity. 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) Level of Mobility: Ambulatory- community Mobility [place]: Independent gait without device History of Falls: [...] Mobility Exam: Sit to Supine Level of [place]: Maximum assist (25% patient's effort) Physical/Nonphysical Assist: Verbal Cues, Maximal cues, Additional assist utilized for safety Transfers Transfer Exam: Sit to stand Level of [place]: Moderate assist (50% patient's effort) Physical/Nonphysical Assist: Verbal Cues, Moderate cues, Additional assist utilized for safety Assistive Device: Rollator Transfer Exam: Stand to Sit Level of [place]: Minimum assist (75% patient's effort) Physical/Nonphysical Assist: [...] continued education to improve carryover. Standardized Assessments [facility] 6-Click Daily Activities Help from Other: Don/Doff Regular Lower Body Clothings: A lot Help From Other: Bathing: A lot Help From Other: Toileting: A lot Help From Other: Don/Doff Upper Body Clothings: Little Help From Other: Grooming: Little Help From Other: Eating Meals: None [facility] 6 Click - Daily Activities Score: 16 [...] Right 06/14/25 0832 Internal jugular 1 GCS: Sharon Coma Scale Score: 15 Review of Systems [...] of NG tube. Right internal jugular approach Bagwell-Shira catheter and mediastinal drain in unchanged position. [...] Problem(s): Weaning from mechanically assisted ventilation initiated ([facility]) (Gvdfjbww32/20/2025) Arrived intubated and sedated post-op - fast [...] analgesia prior to leaving the OR. [facility] services were consulted for [...] pressure support 04/05 Edited by: Balta Washington, ASSOCIATE FACULTY, DNP at 06/14/2025 2253 Lines/Drains/Tubes: Patient Lines/Drains/Airways [...] Ongoing, Progressing Intervention: Promote Activity and Functional [place] Flowsheets (Taken 06/14/20252154) Activity Assistance Provided: assistance, [...] Problem(s): Weaning from mechanically assisted ventilation initiated ([facility]) (Rifnnbza67/20/2025) Arrived intubated and sedated post-op - fast [...] analgesia prior to leaving the OR. [facility] services were consulted for [...] 06/14/25 1327 Mediastinal less than 1 NG/OG Mathews Sump Orogastric 18 Fr Center mouth 06/14/25 [...] Reviewed and otherwise non-contributory. Allergies: Allergies[6] GCS: Sharon Coma Scale Score: 15 Review of Systems [...] OTHER SURGICAL HISTORY N/A Knee arthroscopy from [facility] SHOULDER SURGERY Right [3] No current facility-administered medications on file prior to encounter. Current Outpatient Medications on File Prior to Encounter Medication Sig Dispense Refill acetaminophen (Tylenol) 325 MG tablet Take 2 tablets by mouth every morning. Under [employer] law, monthly prescriptions (30 days) can be refilled at 25 days and three-month prescriptions (90 days) at 80 days. Please contact the insurance company with questions if refills are denied. (Patient taking differently: Take 2 tablets by mouth every 4 hours as needed. Under [employer] law, monthly prescriptions (30 days) can be [...] Saint Jose mechanical prosthesis. Date: 06/14/25 Location: [facility] Name: Bradley Forrest, : 1955, Diagnoses: Pre-op Diagnosis Severe aortic regurgitation Post-op Diagnosis Severe aortic regurgitation Coronary artery disease due to calcified coronary lesion History of coronary angioplasty with insertion of stent Left ventricular enlargement Procedure(s): Median sternotomy, aortic valve replacement using a 25 mm Saint Jose mechanical prosthesis. Attending Surgeon(s): * Phillip Clark - Primary Paediatric Physiotherapist(s): * Turner Pablo MD - Fellow Anesthesia: General ASA: IV Blood Administration: Blood Product Administration History None Estimated Blood Loss: 150 mL Drains: Chest Tube Mediastinal 36 Fr (Active) Function -20 cm H2O 06/14/25 1600 Chest Tube Air Leak No 06/14/25 1600 Patency Intervention Tip/tilt 06/14/25 1600 Drainage Description Dark red 06/14/25 1600 NG/OG Mathews Sump Orogastric 18 Fr Center mouth (Active) Urethral Catheter Temperature probe 16 Fr. (Active) Implants Type Name Action Serial No. GRAFT PTCH [id number] FELT - [id number] Implanted VALVE ATRIAL 25MM ROTATABL CUF STD PTFE - [id number] - [id number] Implanted [id number] Specimen: Specimens ID Source Frozen? 1 Heart [...] stenting of his coronaries. In addition his trash collector truck driver, Jd Duvall, had done an echocardiogram which [...] was induced, monitoring lines were placed, a Bagwell-Shira catheter was floated into position and a [...] wall. The sternum was reapproximated with #7 [id number] stainless steel wires, the fasciawas closed with [...] 2 tablets by mouth every morning. Under [employer] law, monthly prescriptions (30 days) can be refilled at 25 days and three-month prescriptions (90 days) at 80 days. Please contact the insurance company with questions if refills are denied. Patient taking differently: Take 2 tablets by mouth every 4 hours as needed. Under [employer] law, monthly prescriptions (30 days) can be [...] Description 07/07/2025 2:40 PM EST [facility] [address], [address] [place] [address] Phillip Clark MD [address] [place] [address] Pending Results Name Type Priority [...] PANEL, PLASMA Routine 06/16/2025 5:35 PM EDT MI CRITICAL CARE, E/M 30-74 MINUTES Routine 06/16/2025 [...] PEP THERAPY Routine 06/15/2025 12:00 PM EDT MI CRITICAL CARE, E/M 30-74 MINUTES Routine 06/15/2025 [...] 1 VIEW Routine 06/15/2025 2:53 AM EDT MI CRITICAL CARE, ADDL 30 MIN Routine 06/15/2025 12:21 AM EDT Other secondary hypertension MI CRITICAL CARE, ADDL 30 MIN Routine 06/15/2025 [...] PANEL, ARTERIAL Routine 06/14/2025 6:47 PM EDT MI CRITICAL CARE, E/M 30-74 MINUTES Routine 06/14/2025 [...] UNSOLICITED RESULTS Routine 06/14/2025 8:13 AM EDT MI -AORT GRF W/CARD BYP F/AORTIC DISSECTION 06/14/2025 [...] - 99 mg/dL 06/20/2025 2:47 AM EDT [facility] BUN, Plasma 22 8 - 23 mg/dL 06/20/2025 2:47 AM EDT [facility] Creatinine, Plasma 0.85 0.70 - 1.20 mg/dL 06/20/2025 2:47 AM EDT [facility] BUN/Creatinine Ratio 26 06/20/2025 2:47 AM EDT [facility] Sodium, Plasma 131(L) 136 - 145 mmol/L 06/20/2025 2:47 AM EDT [facility] Potassium, Plasma 4.0 3.6 - 4.9 mmol/L 06/20/2025 2:47 AM EDT [facility] Chloride, Plasma 102 97 - 107 mmol/L 06/20/2025 2:47 AM EDT [facility] CO2, Plasma 24 22 - 29 mmol/L 06/20/2025 2:47 AM EDT [facility] Anion Gap 5(L) 6 - 16 mmol/L 06/20/2025 2:47 AM EDT [facility] Total Calcium, Plasma 7.9(L) 8.9 - 10.2 mg/dL 06/20/2025 2:47 AM EDT [facility] eGFRcr 94.1 mL/min/1.7 3m*2 06/20/2025 2:47 AM EDT [facility] Comment:Reported eGFRcr in m L/min/1.73m2 is based the CKD-EPI 2020 equation that does not use a race coefficient. Blood Venous blood specimen / Unknown Venipuncture / Unknown 06/20/2025 1:52 AM EDT 06/20/2025 1:59 AM EDT us Phillip Clark MD LAB BLOOD ORDERABLES Final R esult [facility] [address] [place] [address] * Phosphorus (06/20/2025 1:52 AM EDT) Phosphorus, Plasma 2.8 2.5 - 4.5 mg/dL 06/20/2025 2:23 AM EDT [facility] Blood Venous blood specimen / Unknown Venipuncture / Unknown 06/20/2025 1:52 AM EDT 06/20/2025 1:59 AM EDT Phillip Clark MD LAB BLOOD ORDERABLES Final R esult [facility] [address] [place] [address] * (ABNORMAL) Protime-INR (06/20/2025 1:52 AM EDT) Prothrombin Time 30.4(H) 12.0 - 14.3 sec LAB COAGULATION METHOD 06/20/2025 2:29 AM EDT [facility] INR 2.9(H) 0.9 - 1.1 LAB COAGULATION METHOD 06/20/2025 2:29 AM EDT [facility] Blood Venous blood specimen / Unknown Venipuncture / Unknown 06/20/2025 1:52 AM EDT 06/20/2025 1:59 AM EDT Narrative [facility] - 06/20/2025 2:29 AM EDT OPTIMAL INR RANGES FOR PATIENT ON ORAL ANTICOAGULANT THERAPY Prevention of venous thromboembolism INR 2.0 to 3.0 In patients with heart disease: Atrial fibrillation INR 2.0 to 3.0 Valvular heart disease INR 2.0 to 3.0 Tissue heart valves INR 2.0 to 3.0 Mechanical prosthetic valves INR 2.5 to 3.5 Prevention of recurrent GA INR 2.5 to 3.5 Phillip Clark MD LAB BLOOD ORDERABLES Final R esult [facility] [address] [place] [address] * Magnesium (06/20/2025 1:52 AM EDT) Magnesium, Plasma 2.2 1.9 - 2.4 mg/dL 06/20/2025 2:23 AM EDT [facility] Blood Venous blood specimen / Unknown Venipuncture / Unknown 06/20/2025 1:52 AM EDT 06/20/2025 1:59 AM EDT Phillip Clark MD LAB BLOOD ORDERABLES Final R esult [facility] [address] [place] [address] * (ABNORMAL) CBC (06/20/2025 1:52 AM EDT) WBC Count 6.95 3.70 - 10.30 10*3/uL LAB HEMATOLOGY METHOD 06/20/2025 2:07 AM EDT [facility] RBC Count 3.73(L) 4.60 - 6.10 10*6/uL LAB HEMATOLOGY METHOD 06/20/2025 2:07 AM EDT [facility] HGB 10.4(L) 13.7 - 17.5 g/dL LAB HEMATOLOGY METHOD 06/20/2025 2:07 AM EDT [facility] HCT 31.9(L) 40.0 - 51.0 % LAB HEMATOLOGY METHOD 06/20/2025 2:07 AM EDT [facility] Platelet Count 187 155 - 369 10*3/uL LAB HEMATOLOGY METHOD 06/20/2025 2:07 AM EDT [facility] MCV 86 79 - 98 fL LAB HEMATOLOGY METHOD 06/20/2025 2:07 AM EDT [facility] MCH 27.9 26.0 - 32.0 pg LAB HEMATOLOGY METHOD 06/20/2025 2:07 AM EDT [facility] MCHC 32.6 30.7 - 35.5 g/dL LAB HEMATOLOGY METHOD 06/20/2025 2:07 AM EDT [facility] RDW 14.8(H) 11.5 - 14.5 % LAB HEMATOLOGY METHOD 06/20/2025 2:07 AM EDT [facility] MPV 10.2 8.8 - 12.5 fL LAB HEMATOLOGY METHOD 06/20/2025 2:07 AM EDT [facility] nRBC 0.0 <=0.0 per 100 WBCs LAB HEMATOLOGY METHOD 06/20/2025 2:07 AM EDT [facility] Blood Venous blood specimen / Unknown Venipuncture / Unknown 06/20/2025 1:52 AM EDT 06/20/2025 1:59 AM EDT us Phillip Clark MD LAB BLOOD ORDERABLES Final R esult [facility] [address] [place] [address] * PERIPHERAL IV (SMARTFORM LINK) (06/20/2025 1:47 [...] ECG Atrial Rate 85 BPM MUSE ECG MI Interval 176 ms MUSE ECG QRSD Interval 110 ms MUSE ECG QT Interval 402 ms MUSE ECG QTC Interval 478 ms MUSE ECG P Stringer 43 degrees MUSE ECG R Stringer -30 degrees MUSE ECG T Wave Stringer 36 degrees MUSE ECG Diagnosis Poor data quality, interpretation may be adversely affected MUSE ECG Diagnosis Sinus rhythm with premature supraventricular complexes and with occasional premature ventricular complexes MUSE ECG Diagnosis Left axis deviation MUSE ECG Diagnosis Poor R-wave progression MUSE ECG Diagnosis Abnormal ECG MUSE ECG Diagnosis Recommend repeat ECG MUSE ECG Diagnosis MUSE ECG Diagnosis Confirmed by Aman Coe ([id number]) on 06/19/2025 1:33:10 PM MUSE ECG 06/19/2025 12:4 9 PM EDT 06/19/2025 1:33 PM EDT Barbara Sosa PA ECG ORDERABLES Final Resul t MUSE ECG * (ABNORMAL) Basic metabolic panel (06/19/2025 2:38 AM EDT) Glucose, Plasma 102(H) 74 - 99 mg/dL 06/19/2025 4:10 AM EDT [facility] BUN, Plasma 25(H) 8 - 23 mg/dL 06/19/2025 4:10 AM EDT [facility] Creatinine, Plasma 1.02 0.70 - 1.20 mg/dL 06/19/2025 4:10 AM EDT [facility] BUN/Creatinine Ratio 25 06/19/2025 4:10 AM EDT [facility] Sodium, Plasma 134(L) 136 - 145 mmol/L 06/19/2025 4:10 AM EDT [facility] Potassium, Plasma 4.6 3.6 - 4.9 mmol/L 06/19/2025 4:10 AM EDT [facility] Comment:Hemolyzed - Potassiu m may be falsely elevated by approximately 0.4-0.7 mmol/L. Chloride, Plasma 102 97 - 107 mmol/L 06/19/2025 4:10 AM EDT [facility] CO2, Plasma 23 22 - 29 mmol/L 06/19/2025 4:10 AM EDT [facility] Anion Gap 9 6 - 16 mmol/L 06/19/2025 4:10 AM EDT [facility] Total Calcium, Plasma 8.4(L) 8.9 - 10.2 mg/dL 06/19/2025 4:10 AM EDT [facility] eGFRcr 79.6 mL/min/1.7 3m*2 06/19/2025 4:10 AM EDT [facility] Comment:Reported eGFRcr in m L/min/1.73m2 is based the CKD-EPI 2020 equation that does not use a race coefficient. Blood Venous blood specimen / Unknown Venipuncture / Unknown 06/19/2025 2:38 AM EDT 06/19/2025 2:54 AM EDT Phillip Clark MD LAB BLOOD ORDERABLES Final R esult Performing Organization Address City/[facility]/ZIP Co de Phone Number [facility] [address] [place] [address] * Phosphorus (06/19/2025 2:38 AM EDT) Pathologist [facility] Phosphorus, Plasma 3.6 2.5 - 4.5 mg/dL 06/19/2025 4:10 AM EDT [facility] Blood Venous blood specimen / Unknown Venipuncture / Unknown 06/19/2025 2:38 AM EDT 06/19/2025 2:54 AM EDT Phillip Clark MD LAB BLOOD ORDERABLES Final R esult Performing Organization Address [facility] Co de Phone Number [facility] [address] [place] [address] * (ABNORMAL) Protime-INR (06/19/2025 2:38 AM EDT) [facility] Prothrombin Time 26.3(H) 12.0 - 14.3 sec LAB COAGULATION METHOD 06/19/2025 3:09 AM EDT [facility] INR 2.4(H) 0.9 - 1.1 LAB COAGULATION METHOD 06/19/2025 3:09 AM EDT [facility] Blood Venous blood specimen / Unknown Venipuncture / Unknown 06/19/2025 2:38 AM EDT 06/19/2025 2:54 AM EDT Narrative [facility] - 06/19/2025 3:09 AM EDT OPTIMAL INR RANGES FOR PATIENT ON ORAL ANTICOAGULANT THERAPY Prevention of venous thromboembolism INR 2.0 to 3.0 In patients with heart disease: Atrial fibrillation INR 2.0 to 3.0 Valvular heart disease INR 2.0 to 3.0 Tissue heart valves INR 2.0 to 3.0 Mechanical prosthetic valves INR 2.5 to 3.5 Prevention of recurrent GA INR 2.5 to 3.5 Phillip Clark MD LAB BLOOD ORDERABLES Final R esult Performing Organization Address City/[facility]/ZIP Co de Phone Number [facility] [address] [place] [address] * Magnesium (06/19/2025 2:38 AM EDT) Magnesium, Plasma 2.4 1.9 - 2.4 mg/dL 06/19/2025 4:10 AM EDT [facility] Blood Venous blood specimen / Unknown Venipuncture / Unknown 06/19/2025 2:38 AM EDT 06/19/2025 2:54 AM EDT Phillip Clark MD LAB BLOOD ORDERABLES Final R esult [facility] [address] [place] [address] * (ABNORMAL) CBC (06/19/2025 2:38 AM EDT) Pathologist [facility] WBC Count 6.94 3.70 - 10.30 10*3/uL LAB HEMATOLOGY METHOD 06/19/2025 3:17 AM EDT [facility] RBC Count 4.12(L) 4.60 - 6.10 10*6/uL LAB HEMATOLOGY METHOD 06/19/2025 3:17 AM EDT [facility] HGB 11.5(L) 13.7 - 17.5 g/dL LAB HEMATOLOGY METHOD 06/19/2025 3:17 AM EDT [facility] HCT 35.7(L) 40.0 - 51.0 % LAB HEMATOLOGY METHOD 06/19/2025 3:17 AM EDT [facility] Platelet Count 165 155 - 369 10*3/uL LAB HEMATOLOGY METHOD 06/19/2025 3:17 AM EDT [facility] MCV 87 79 - 98 fL LAB HEMATOLOGY METHOD 06/19/2025 3:17 AM EDT [facility] MCH 27.9 26.0 - 32.0 pg LAB HEMATOLOGY METHOD 06/19/2025 3:17 AM EDT [facility] MCHC 32.2 30.7 - 35.5 g/dL LAB HEMATOLOGY METHOD 06/19/2025 3:17 AM EDT [facility] RDW 14.8(H) 11.5 - 14.5 % LAB HEMATOLOGY METHOD 06/19/2025 3:17 AM EDT [facility] MPV 10.6 8.8 - 12.5 fL LAB HEMATOLOGY METHOD 06/19/2025 3:17 AM EDT [facility] nRBC 0.0 <=0.0 per 100 WBCs LAB HEMATOLOGY METHOD 06/19/2025 3:17 AM EDT [facility] Blood Venous blood specimen / Unknown Venipuncture / Unknown 06/19/2025 2:38 AM EDT 06/19/2025 2:54 AM EDT us Phillip Clark MD LAB BLOOD ORDERABLES Final R esult [facility] [address] [place] [address] * XR Chest 1 View (06/19/2025 1:50 [...] - 99 mg/dL 06/18/2025 2:17 AM EDT [facility] BUN, Plasma 18 8 - 23 mg/dL 06/18/2025 2:17 AM EDT [facility] Creatinine, Plasma 0.82 0.70 - 1.20 mg/dL 06/18/2025 2:17 AM EDT [facility] BUN/Creatinine Ratio 22 06/18/2025 2:17 AM EDT [facility] Sodium, Plasma 134(L) 136 - 145 mmol/L 06/18/2025 2:17 AM EDT [facility] Potassium, Plasma 3.7 3.6 - 4.9 mmol/L 06/18/2025 2:17 AM EDT [facility] Chloride, Plasma 100 97 - 107 mmol/L 06/18/2025 2:17 AM EDT [facility] CO2, Plasma 26 22 - 29 mmol/L 06/18/2025 2:17 AM EDT [facility] Anion Gap 8 6 - 16 mmol/L 06/18/2025 2:17 AM EDT [facility] Total Calcium, Plasma 8.1(L) 8.9 - 10.2 mg/dL 06/18/2025 2:17 AM EDT [facility] eGFRcr 95.1 mL/min/1.7 3m*2 06/18/2025 2:17 AM EDT [facility] Comment:Reported eGFRcr in m L/min/1.73m2 is based the CKD-EPI 2020 equation that does not use a race coefficient. Blood Blood sample taken from central line / Unknown Venipuncture / Unknown 06/18/2025 1:43 AM EDT 06/18/2025 1:48 AM EDT us Phillip Clark MD LAB BLOOD ORDERABLES Final R esult [facility] [address] [place] [address] * Phosphorus (06/18/2025 1:43 AM EDT) Phosphorus, Plasma 2.6 2.5 - 4.5 mg/dL 06/18/2025 2:17 AM EDT [facility] Blood Blood sample taken from central line / Unknown Venipuncture / Unknown 06/18/2025 1:43 AM EDT 06/18/2025 1:48 AM EDT us Phillip Clark MD LAB BLOOD ORDERABLES Final R esult Performing Organization Address [facility]/ZIP Co de Phone Number [facility] [address] [place] [address] * (ABNORMAL) Protime-INR (06/18/2025 1:43 AM EDT) Prothrombin Time 25.2(H) 12.0 - 14.3 sec LAB COAGULATION METHOD 06/18/2025 2:07 AM EDT [facility] INR 2.3(H) 0.9 - 1.1 LAB COAGULATION METHOD 06/18/2025 2:07 AM EDT [facility] Blood Blood sample taken from central line / Unknown Venipuncture / Unknown 06/18/2025 1:43 AM EDT 06/18/2025 1:48 AM EDT Narrative [facility] - 06/18/2025 2:07 AM EDT OPTIMAL INR RANGES FOR PATIENT ON ORAL ANTICOAGULANT THERAPY Prevention of venous thromboembolism INR 2.0 to 3.0 In patients with heart disease: Atrial fibrillation INR 2.0 to 3.0 Valvular heart disease INR 2.0 to 3.0 Tissue heart valves INR 2.0 to 3.0 Mechanical prosthetic valves INR 2.5 to 3.5 Prevention of recurrent GA INR 2.5 to 3.5 us Phillip Clark MD LAB BLOOD ORDERABLES Final R esult Performing Organization Address [facility] Co de Phone Number [facility] [address] [place] [address] * Magnesium (06/18/2025 1:43 AM EDT) Pathologist [facility] Magnesium, Plasma 2.3 1.9 - 2.4 mg/dL 06/18/2025 2:17 AM EDT [facility] Blood Blood sample taken from central line / Unknown Venipuncture / Unknown 06/18/2025 1:43 AM EDT 06/18/2025 1:48 AM EDT Phillip Clark MD LAB BLOOD ORDERABLES Final R esult Performing Organization Address City/[facility]/ZIP Co de Phone Number [facility] [address] [place] [address] * (ABNORMAL) CBC (06/18/2025 1:43 AM EDT) [facility] Signature WBC Count 8.51 3.70 - 10.30 10*3/uL LAB HEMATOLOGY METHOD 06/18/2025 1:54 AM EDT [facility] RBC Count 3.67(L) 4.60 - 6.10 10*6/uL LAB HEMATOLOGY METHOD 06/18/2025 1:54 AM EDT [facility] HGB 10.6(L) 13.7 - 17.5 g/dL LAB HEMATOLOGY METHOD 06/18/2025 1:54 AM EDT [facility] HCT 31.2(L) 40.0 - 51.0 % LAB HEMATOLOGY METHOD 06/18/2025 1:54 AM EDT [facility] Platelet Count 121(L) 155 - 369 10*3/uL LAB HEMATOLOGY METHOD 06/18/2025 1:54 AM EDT [facility] MCV 85 79 - 98 fL LAB HEMATOLOGY METHOD 06/18/2025 1:54 AM EDT [facility] MCH 28.9 26.0 - 32.0 pg LAB HEMATOLOGY METHOD 06/18/2025 1:54 AM EDT [facility] MCHC 34.0 30.7 - 35.5 g/dL LAB HEMATOLOGY METHOD 06/18/2025 1:54 AM EDT [facility] RDW 14.7(H) 11.5 - 14.5 % LAB HEMATOLOGY METHOD 06/18/2025 1:54 AM EDT [facility] MPV 10.4 8.8 - 12.5 fL LAB HEMATOLOGY METHOD 06/18/2025 1:54 AM EDT [facility] nRBC 0.0 <=0.0 per 100 WBCs LAB HEMATOLOGY METHOD 06/18/2025 1:54 AM EDT [facility] Blood Blood sample taken from central line / Unknown Venipuncture / Unknown 06/18/2025 1:43 AM EDT 06/18/2025 1:48 AM EDT us Phillip Clark MD LAB BLOOD ORDERABLES Final R esult [facility] [address] [place] [address] * XR Chest 1 View (06/17/2025 3:14 [...] - 99 mg/dL 06/17/2025 12:54 AM EDT [facility] BUN, Plasma 15 8 - 23 mg/dL 06/17/2025 12:54 AM EDT [facility] Creatinine, Plasma 0.81 0.70 - 1.20 mg/dL 06/17/2025 12:54 AM EDT [facility] BUN/Creatinine Ratio 19 06/17/2025 12:54 AM EDT [facility] Sodium, Plasma 133(L) 136 - 145 mmol/L 06/17/2025 12:54 AM EDT [facility] Potassium, Plasma 3.9 3.6 - 4.9 mmol/L 06/17/2025 12:54 AM EDT [facility] Chloride, Plasma 98 97 - 107 mmol/L 06/17/2025 12:54 AM EDT [facility] CO2, Plasma 25 22 - 29 mmol/L 06/17/2025 12:54 AM EDT [facility] Anion Gap 10 6 - 16 mmol/L 06/17/2025 12:54 AM EDT [facility] Total Calcium, Plasma 8.1(L) 8.9 - 10.2 mg/dL 06/17/2025 12:54 AM EDT [facility] eGFRcr 95.4 mL/min/1.7 3m*2 06/17/2025 12:54 AM EDT [facility] Comment:Reported eGFRcr in m L/min/1.73m2 is based the CKD-EPI 2020 equation that does not use a race coefficient. Blood Blood sample taken from central line / Unknown Venipuncture / Unknown 06/17/2025 12:17 AM EDT 06/17/2025 12:24 AM EDT us Phillip Clark MD LAB BLOOD ORDERABLES Final R esult [facility] [address] [place] [address] * Phosphorus (06/17/2025 12:17 AM EDT) Phosphorus, Plasma 2.9 2.5 - 4.5 mg/dL 06/17/2025 12:54 AM EDT [facility] Blood Blood sample taken from central line / Unknown Venipuncture / Unknown 06/17/2025 12:17 AM EDT 06/17/2025 12:24 AM EDT Phillip Clark MD LAB BLOOD ORDERABLES Final R esult Performing Organization Address City/[facility] Co de Phone Number [facility] [address] [place] [address] * (ABNORMAL) Protime-INR (06/17/2025 12:17 AM EDT) Prothrombin Time 18.7(H) 12.0 - 14.3 sec LAB COAGULATION METHOD 06/17/2025 1:16 AM EDT [facility] INR 1.5(H) 0.9 - 1.1 LAB COAGULATION METHOD 06/17/2025 1:16 AM EDT [facility] Blood Blood sample taken from central line / Unknown Venipuncture / Unknown 06/17/2025 12:17 AM EDT 06/17/2025 12:24 AM EDT Narrative [facility] - 06/17/2025 1:16 AM EDT OPTIMAL INR RANGES FOR PATIENT ON ORAL ANTICOAGULANT THERAPY Prevention of venous thromboembolism INR 2.0 to 3.0 In patients with heart disease: Atrial fibrillation INR 2.0 to 3.0 Valvular heart disease INR 2.0 to 3.0 Tissue heart valves INR 2.0 to 3.0 Mechanical prosthetic valves INR 2.5 to 3.5 Prevention of recurrent GA INR 2.5 to 3.5 Phillip Clark MD LAB BLOOD ORDERABLES Final R esult Performing Organization Address City/[facility]/ZIP Co de Phone Number [facility] [address] [place] [address] * Magnesium (06/17/2025 12:17 AM EDT) Magnesium, Plasma 2.3 1.9 - 2.4 mg/dL 06/17/2025 12:54 AM EDT [facility] Blood Blood sample taken from central line / Unknown Venipuncture / Unknown 06/17/2025 12:17 AM EDT 06/17/2025 12:24 AM EDT us Phillip Clark MD LAB BLOOD ORDERABLES Final R esult [facility] [address] [place] [address] * (ABNORMAL) CBC (06/17/2025 12:17 AM EDT) WBC Count 10.83(H) 3.70 - 10.30 10*3/uL LAB HEMATOLOGY METHOD 06/17/2025 12:32 AM EDT [facility] RBC Count 4.08(L) 4.60 - 6.10 10*6/uL LAB HEMATOLOGY METHOD 06/17/2025 12:32 AM EDT [facility] HGB 11.3(L) 13.7 - 17.5 g/dL LAB HEMATOLOGY METHOD 06/17/2025 12:32 AM EDT [facility] HCT 35.0(L) 40.0 - 51.0 % LAB HEMATOLOGY METHOD 06/17/2025 12:32 AM EDT [facility] Platelet Count 116(L) 155 - 369 10*3/uL LAB HEMATOLOGY METHOD 06/17/2025 12:32 AM EDT [facility] MCV 86 79 - 98 fL LAB HEMATOLOGY METHOD 06/17/2025 12:32 AM EDT [facility] MCH 27.7 26.0 - 32.0 pg LAB HEMATOLOGY METHOD 06/17/2025 12:32 AM EDT [facility] MCHC 32.3 30.7 - 35.5 g/dL LAB HEMATOLOGY METHOD 06/17/2025 12:32 AM EDT [facility] RDW 15.1(H) 11.5 - 14.5 % LAB HEMATOLOGY METHOD 06/17/2025 12:32 AM EDT [facility] MPV 10.3 8.8 - 12.5 fL LAB HEMATOLOGY METHOD 06/17/2025 12:32 AM EDT [facility] nRBC 0.0 <=0.0 per 100 WBCs LAB HEMATOLOGY METHOD 06/17/2025 12:32 AM EDT [facility] Blood Blood sample taken from central line / Unknown Venipuncture / Unknown 06/17/2025 12:17 AM EDT 06/17/2025 12:24 AM EDT Phillip Clark MD LAB BLOOD ORDERABLES Final R esult Performing Organization Address City/[facility]/ZIP Co de Phone Number [facility] [address] [place] [address] * Magnesium (06/16/2025 5:35 PM EDT) Magnesium, Plasma 2.2 1.9 - 2.4 mg/dL 06/16/2025 7:41 PM EDT [facility] Blood Venous blood specimen / Unknown Venipuncture / Unknown 06/16/2025 5:35 PM EDT 06/16/2025 7:12 PM EDT us Phillip Clark MD LAB BLOOD ORDERABLES Final R esult Performing Organization Address City/[facility]/ZIP Co de Phone Number [facility] [address] [place] [address] * (ABNORMAL) Renal function panel (06/16/2025 5:35 PM EDT) Glucose, Plasma 89 74 - 99 mg/dL 06/16/2025 7:41 PM EDT [facility] BUN, Plasma 15 8 - 23 mg/dL 06/16/2025 7:41 PM EDT [facility] Creatinine, Plasma 0.79 0.70 - 1.20 mg/dL 06/16/2025 7:41 PM EDT [facility] BUN/Creatinine Ratio 19 06/16/2025 7:41 PM EDT [facility] Sodium, Plasma 134(L) 136 - 145 mmol/L 06/16/2025 7:41 PM EDT [facility] Potassium, Plasma 3.8 3.6 - 4.9 mmol/L 06/16/2025 7:41 PM EDT [facility] Chloride, Plasma 98 97 - 107 mmol/L 06/16/2025 7:41 PM EDT [facility] CO2, Plasma 25 22 - 29 mmol/L 06/16/2025 7:41 PM EDT [facility] Anion Gap 11 6 - 16 mmol/L 06/16/2025 7:41 PM EDT [facility] Total Calcium, Plasma 8.4(L) 8.9 - 10.2 mg/dL 06/16/2025 7:41 PM EDT [facility] Phosphorus, Plasma 2.2(L) 2.5 - 4.5 mg/dL 06/16/2025 7:41 PM EDT [facility] Albumin, Plasma 3.4(L) 3.5 - 5.2 g/dL 06/16/2025 7:41 PM EDT [facility] eGFRcr 96.2 mL/min/1.7 3m*2 06/16/2025 7:41 PM EDT [facility] Comment:Reported eGFRcr in m L/min/1.73m2 is based the CKD-EPI 2020 equation that does not use a race coefficient. Blood Venous blood specimen / Unknown Venipuncture / Unknown 06/16/2025 5:35 PM EDT 06/16/2025 7:12 PM EDT us Phillip Clark MD LAB BLOOD ORDERABLES Final R esult [facility] [address] [place] [address] * [place] CRITICAL CARE, E/M 30-74 MINUTES (06/16/2025 9:58 [...] POCT glucose meter (06/16/2025 8:40 AM EDT) [facility] POCT Glucose 102(H) 74 - 99 mg/dL [...] for testing. Comment 06/16/2025 8:45 AM EDT [facility] Patient Services Specialist ID Fariba Blanton 025 8:45 AM EDT [facility] Device ID [id number] 06/16/2025 8:45 AM EDT [facility] Specimen Type POC Arterial 06/16/2025 8:45 AM EDT [facility] Blood Arterial blood specimen / Unknown 06/16/2025 8:40 AM EDT 06/16/2025 8:45 AM EDT us Phillip Clark MD LAB POINT OF CARE TE ST DOCKED DEVICE UNSOLICITED RESULTS Final Result [facility] [address] [place] [address] * (ABNORMAL) Basic metabolic panel (06/16/2025 5:58 AM EDT) [facility] Glucose, Plasma 124(H) 74 - 99 mg/dL 06/16/2025 6:35 AM EDT [facility] BUN, Plasma 16 8 - 23 mg/dL 06/16/2025 6:35 AM EDT [facility] Creatinine, Plasma 0.83 0.70 - 1.20 mg/dL 06/16/2025 6:35 AM EDT [facility] BUN/Creatinine Ratio 19 06/16/2025 6:35 AM EDT [facility] Sodium, Plasma 132(L) 136 - 145 mmol/L 06/16/2025 6:35 AM EDT [facility] Potassium, Plasma 3.8 3.6 - 4.9 mmol/L 06/16/2025 6:35 AM EDT [facility] Chloride, Plasma 100 97 - 107 mmol/L 06/16/2025 6:35 AM EDT [facility] CO2, Plasma 25 22 - 29 mmol/L 06/16/2025 6:35 AM EDT [facility] Anion Gap 7 6 - 16 mmol/L 06/16/2025 6:35 AM EDT [facility] Total Calcium, Plasma 8.4(L) 8.9 - 10.2 mg/dL 06/16/2025 6:35 AM EDT [facility] eGFRcr 94.7 mL/min/1.7 3m*2 06/16/2025 6:35 AM EDT [facility] Comment:Reported eGFRcr in m L/min/1.73m2 is based the CKD-EPI 2020 equation that does not use a race coefficient. Blood Arterial blood specimen / Unknown Venipuncture / Unknown 06/16/2025 5:58 AM EDT 06/16/2025 6:05 AM EDT us Phillip Clark MD LAB BLOOD ORDERABLES Final R esult [facility] [address] [place] [address] * XR Chest 1 View (06/16/2025 5:14 AM EDT) Anatomical Region Laterality Modality Chest Digital Radiogra phy Impressions 06/16/2025 8:15 AM EDT Interval removal of the Bagwell-Shira catheter, the right IJ sheath remains in [...] post median sternotomy. Interval removal of the Bagwell-Shira catheter, right IJ sheath remains in place with tip in the mid to distal SVC. No pneumothorax or pleural effusions. Ongoing interstitial edema. Procedure Note Mona Smith MD - 06/16/2025 CLINICAL INDICATION: Post-Op Cardiac Surgery TECHNIQUE: XR CHEST 1 VIEW COMPARISON: Chest radiograph 06/15/2025 FINDINGS: Enlarged cardiac silhouette stable status post median sternotomy. Intervalremoval of the Bagwell-Shira catheter, right IJ sheath remains in place withtip in the mid to distal SVC. No pneumothorax or pleural effusions. Ongoing interstitial edema. IMPRESSION: Interval removal of the Bagwell-Shira catheter, the right IJ sheath remainsin place [...] lt * Phosphorus (06/16/2025 12:36 AM EDT) [facility] Phosphorus, Plasma 3.0 2.5 - 4.5 mg/dL 06/16/2025 1:12 AM EDT [facility] Blood Arterial blood specimen / Unknown Venipuncture / Unknown 06/16/2025 12:36 AM EDT 06/16/2025 12:48 AM EDT Phillip Clark MD LAB BLOOD ORDERABLES Final R esult [facility] [address] [place] [address] * (ABNORMAL) Protime-INR (06/16/2025 12:36 AM EDT) Prothrombin Time 18.0(H) 12.0 - 14.3 sec LAB COAGULATION METHOD 06/16/2025 1:06 AM EDT [facility] INR 1.5(H) 0.9 - 1.1 LAB COAGULATION METHOD 06/16/2025 1:06 AM EDT [facility] Blood Arterial blood specimen / Unknown Venipuncture / Unknown 06/16/2025 12:36 AM EDT 06/16/2025 12:48 AM EDT Narrative [facility] - 06/16/2025 1:06 AM EDT OPTIMAL INR RANGES FOR PATIENT ON ORAL ANTICOAGULANT THERAPY Prevention of venous thromboembolism INR 2.0 to 3.0 In patients with heart disease: Atrial fibrillation INR 2.0 to 3.0 Valvular heart disease INR 2.0 to 3.0 Tissue heart valves INR 2.0 to 3.0 Mechanical prosthetic valves INR 2.5 to 3.5 Prevention of recurrent GA INR 2.5 to 3.5 us Phillip Clark MD LAB BLOOD ORDERABLES Final R esult Performing Organization Address City/[facility]/ZIP Co de Phone Number [facility] [address] [place] [address] * (ABNORMAL) Magnesium (06/16/2025 12:36 AM EDT) Magnesium, Plasma 2.5(H) 1.9 - 2.4 mg/dL 06/16/2025 1:12 AM EDT [facility] Blood Arterial blood specimen / Unknown Venipuncture / Unknown 06/16/2025 12:36 AM EDT 06/16/2025 12:48 AM EDT Phillip Clark MD LAB BLOOD ORDERABLES Final R esult Performing Organization Address City/[facility]/ZIP Co de Phone Number [facility] [address] [place] [address] * (ABNORMAL) CBC (06/16/2025 12:36 AM EDT) WBC Count 13.67(H) 3.70 - 10.30 10*3/uL LAB HEMATOLOGY METHOD 06/16/2025 1:01 AM EDT [facility] RBC Count 4.36(L) 4.60 - 6.10 10*6/uL LAB HEMATOLOGY METHOD 06/16/2025 1:01 AM EDT [facility] HGB 12.3(L) 13.7 - 17.5 g/dL LAB HEMATOLOGY METHOD 06/16/2025 1:01 AM EDT [facility] HCT 37.1(L) 40.0 - 51.0 % LAB HEMATOLOGY METHOD 06/16/2025 1:01 AM EDT [facility] Platelet Count 106(L) 155 - 369 10*3/uL LAB HEMATOLOGY METHOD 06/16/2025 1:01 AM EDT [facility] MCV 85 79 - 98 fL LAB HEMATOLOGY METHOD 06/16/2025 1:01 AM EDT [facility] MCH 28.2 26.0 - 32.0 pg LAB HEMATOLOGY METHOD 06/16/2025 1:01 AM EDT [facility] MCHC 33.2 30.7 - 35.5 g/dL LAB HEMATOLOGY METHOD 06/16/2025 1:01 AM EDT [facility] RDW 15.4(H) 11.5 - 14.5 % LAB HEMATOLOGY METHOD 06/16/2025 1:01 AM EDT [facility] MPV 10.8 8.8 - 12.5 fL LAB HEMATOLOGY METHOD 06/16/2025 1:01 AM EDT [facility] nRBC 0.0 <=0.0 per 100 WBCs LAB HEMATOLOGY METHOD 06/16/2025 1:01 AM EDT [facility] Blood Arterial blood specimen / Unknown Venipuncture / Unknown 06/16/2025 12:36 AM EDT 06/16/2025 12:48 AM EDT us Phillip Clark MD LAB BLOOD ORDERABLES Final R esult [facility] [address] [place] [address] * (ABNORMAL) Blood gas, arterial (06/16/2025 12:36 AM EDT) pH, Arterial 7.43(H) 7.31 - 7.42 LAB HEMATOLOGY METHOD 06/16/2025 12:58 AM EDT [facility] pCO2, Arterial 41 32 - 45 mmHg LAB HEMATOLOGY METHOD 06/16/2025 12:58 AM EDT [facility] pO2, Arterial 65(L) >80 mmHg LAB HEMATOLOGY METHOD 06/16/2025 12:58 AM EDT [facility] SO2, Measured, Arterial 94 94 - 98 % LAB HEMATOLOGY METHOD 06/16/2025 12:58 AM EDT [facility] Base Excess, Arterial 2.5 -2.0 - 3.0 mmol/L LAB HEMATOLOGY METHOD 06/16/2025 12:58 AM EDT [facility] Bicarbonate, Calculated, Arterial 27(H) 22 - 26 mmol/L LAB HEMATOLOGY METHOD 06/16/2025 12:58 AM EDT [facility] Hematocrit, Whole Blood 37.9(L) 40.0 - 51.0 % LAB HEMATOLOGY METHOD 06/16/2025 12:58 AM EDT [facility] Sodium, Whole Blood 133(L) 136 - 145 mmol/L LAB HEMATOLOGY METHOD 06/16/2025 12:58 AM EDT [facility] Potassium, Whole Blood 3.4(L) 3.6 - 4.9 mmol/L LAB HEMATOLOGY METHOD 06/16/2025 12:58 AM EDT [facility] Chloride, Whole Blood 100 97 - 107 mmol/L LAB HEMATOLOGY METHOD 06/16/2025 12:58 AM EDT [facility] Glucose, Whole Blood 124(H) 74 - 99 mg/dL LAB HEMATOLOGY METHOD 06/16/2025 12:58 AM EDT [facility] Ionized Calcium, Whole Blood 4.3(L) 4.6 - 5.1 mg/dL LAB HEMATOLOGY METHOD 06/16/2025 12:58 AM EDT [facility] Lactate, Arterial, Whole Blood 1.0 0.5 - 1.6 mmol/L LAB HEMATOLOGY METHOD 06/16/2025 12:58 AM EDT [facility] Blood Arterial blood specimen / Unknown Arterial Puncture / Unknown 06/16/2025 12:36 AM EDT 06/16/2025 12:55 AM EDT us Phillip Clark MD LAB BLOOD ORDERABLES Final R esult [facility] [address] [place] [address] * (ABNORMAL) POCT glucose meter (06/15/2025 8:00 PM EDT) [facility] POCT Glucose 120(H) 74 - 99 [...] Comment 06/15/2025 8:01 PM EDT [facility] Patient Services Specialist ID Svetlana Reilly 8:01 PM EDT [facility] Device ID [id number] 06/15/2025 8:01 PM EDT [facility] Specimen Type POC Capillary 06/15/2025 8:01 PM EDT [facility] Blood Capillary blood specimen / Unknown 06/15/2025 8:00 PM EDT 06/15/2025 8:01 PM EDT Phillip Clark MD LAB POINT OF CARE TE ST DOCKED DEVICE UNSOLICITED RESULTS Final Result Performing Organization Address City/[facility] Co de Phone Number [facility] [address] [place] [address] * (ABNORMAL) POCT glucose meter (06/15/2025 5:56 PM EDT) [facility] POCT Glucose 121(H) 74 - 99 [...] 06/15/2025 5:57 PM EDT [facility] Patient Services Specialist ID Bony Thomas 025 5:57 PM EDT [facility] Device ID [id number] 06/15/2025 5:57 PM EDT [facility] Specimen Type POC Arterial 06/15/2025 5:57 PM EDT [facility] Blood Arterial blood specimen / Unknown 06/15/2025 5:56 PM EDT 06/15/2025 5:57 PM EDT us Phillip Clark MD LAB POINT OF CARE TE ST DOCKED DEVICE UNSOLICITED RESULTS Final Result [facility] [address] [place] [address] * Magnesium (06/15/2025 4:11 PM EDT) Magnesium, Plasma 2.1 1.9 - 2.4 mg/dL 06/15/2025 6:21 PM EDT [facility] Blood Venous blood specimen / Unknown Venipuncture / Unknown 06/15/2025 4:11 PM EDT 06/15/2025 4:39 PM EDT us Phillip Clark MD LAB BLOOD ORDERABLES Final R esult Performing Organization Address City/[facility]/ZIP Co de Phone Number [facility] [address] [place] [address] * Phosphorus (06/15/2025 4:11 PM EDT) Phosphorus, Plasma 2.9 2.5 - 4.5 mg/dL 06/15/2025 5:12 PM EDT [facility] Blood Venous blood specimen / Unknown Venipuncture / Unknown 06/15/2025 4:11 PM EDT 06/15/2025 4:39 PM EDT us Phillip Clark MD LAB BLOOD ORDERABLES Final R esult Performing Organization Address City/[facility]/ZIP Co de Phone Number [facility] [address] [place] [address] * (ABNORMAL) Basic metabolic panel (06/15/2025 4:11 PM EDT) Pathologist [facility] Glucose, Plasma 123(H) 74 - 99 mg/dL 06/15/2025 5:12 PM EDT [facility] BUN, Plasma 19 8 - 23 mg/dL 06/15/2025 5:12 PM EDT [facility] Creatinine, Plasma 0.88 0.70 - 1.20 mg/dL 06/15/2025 5:12 PM EDT [facility] BUN/Creatinine Ratio 22 06/15/2025 5:12 PM EDT [facility] Sodium, Plasma 133(L) 136 - 145 mmol/L 06/15/2025 5:12 PM EDT [facility] Potassium, Plasma 3.9 3.6 - 4.9 mmol/L 06/15/2025 5:12 PM EDT [facility] Chloride, Plasma 102 97 - 107 mmol/L 06/15/2025 5:12 PM EDT [facility] CO2, Plasma 23 22 - 29 mmol/L 06/15/2025 5:12 PM EDT [facility] Anion Gap 8 6 - 16 mmol/L 06/15/2025 5:12 PM EDT [facility] Total Calcium, Plasma 8.6(L) 8.9 - 10.2 mg/dL 06/15/2025 5:12 PM EDT [facility] eGFRcr 93.1 mL/min/1.7 3m*2 06/15/2025 5:12 PM EDT [facility] Comment:Reported eGFRcr in m L/min/1.73m2 is based the CKD-EPI 2020 equation that does not use a race coefficient. Blood Venous blood specimen / Unknown Venipuncture / Unknown 06/15/2025 4:11 PM EDT 06/15/2025 4:39 PM EDT us Phillip Clark MD LAB BLOOD ORDERABLES Final R esult [facility] [address] [place] [address] * (ABNORMAL) POCT glucose meter (06/15/2025 12:14 [...] Comment 06/15/2025 12:16 PM EDT [facility] Patient Services Specialist ID Bony Thomas 025 12:16 PM EDT [facility] Device ID [id number] 06/15/2025 12:16 PM EDT [facility] Specimen Type POC Arterial 06/15/2025 12:16 PM EDT [facility] Blood Arterial blood specimen / Unknown 06/15/2025 12:14 PM EDT 06/15/2025 12:16 PM EDT Phillip Clark MD LAB POINT OF CARE TE ST DOCKED DEVICE UNSOLICITED RESULTS Final Result Performing Organization Address City/State/[facility] Co de Phone Number [facility] [address] [place] [address] * [place] [facility], E/M 30-74 MINUTES (06/15/2025 9:19 [...] POCT glucose meter (06/15/2025 8:24 AM EDT) [facility] POCT Glucose 129(H) 74 - 99 mg/dL [...] Comment 06/15/2025 8:25 AM EDT [facility] Patient Services Specialist ID Bony Thomas 025 8:25 AM EDT [facility]ALTH[facility] Device ID [id number] 06/15/2025 8:25 AM EDT [facility]ALTH[facility] Specimen Type POC Arterial 06/15/2025 8:25 AM EDT [facility] Blood Arterial blood specimen / Unknown 06/15/2025 8:24 AM EDT 06/15/2025 8:25 AM EDT us Phillip Clark MD LAB POINT OF CARE TE ST DOCKED DEVICE UNSOLICITED RESULTS Final Result [facility] [address] [place] [address] * (ABNORMAL) CBC and Differential (06/15/2025 8:18 AM EDT) [facility] WBC Count 12.56(H) 3.70 - 10.30 10*3/uL LAB HEMATOLOGY METHOD 06/15/2025 8:47 AM EDT [facility] RBC Count 4.60 4.60 - 6.10 10*6/uL LAB HEMATOLOGY METHOD 06/15/2025 8:47 AM EDT [facility] HGB 12.8(L) 13.7 - 17.5 g/dL LAB HEMATOLOGY METHOD 06/15/2025 8:47 AM EDT [facility] HCT 39.4(L) 40.0 - 51.0 % LAB HEMATOLOGY METHOD 06/15/2025 8:47 AM EDT [facility] Platelet Count 120(L) 155 - 369 10*3/uL LAB HEMATOLOGY METHOD 06/15/2025 8:47 AM EDT [facility] MCV 86 79 - 98 fL LAB HEMATOLOGY METHOD 06/15/2025 8:47 AM EDT [facility] MCH 27.8 26.0 - 32.0 pg LAB HEMATOLOGY METHOD 06/15/2025 8:47 AM EDT [facility] MCHC 32.5 30.7 - 35.5 g/dL LAB HEMATOLOGY METHOD 06/15/2025 8:47 AM EDT [facility] RDW 15.5(H) 11.5 - 14.5 % LAB HEMATOLOGY METHOD 06/15/2025 8:47 AM EDT [facility] MPV 10.6 8.8 - 12.5 fL LAB HEMATOLOGY METHOD 06/15/2025 8:47 AM EDT [facility] nRBC 0.0 <=0.0 per 100 WBCs LAB HEMATOLOGY METHOD 06/15/2025 8:47 AM EDT [facility] Differential Type Automated LAB HEMATOLOGY METHOD 06/15/2025 8:47 AM EDT [facility] Neutrophils % 84 % LAB HEMATOLOGY METHOD 06/15/2025 8:47 AM EDT [facility] Lymphocytes % 5 % LAB HEMATOLOGY METHOD 06/15/2025 8:47 AM EDT [facility] Monocytes % 10 % LAB HEMATOLOGY METHOD 06/15/2025 8:47 AM EDT [facility] Eosinophils % 0 % LAB HEMATOLOGY METHOD 06/15/2025 8:47 AM EDT [facility] Basophils % 0 % LAB HEMATOLOGY METHOD 06/15/2025 8:47 AM EDT [facility] Immature Granulocytes % 1 % LAB HEMATOLOGY METHOD 06/15/2025 8:47 AM EDT [facility] Neutrophils Absolute 10.59(H) 1.60 - 6.10 10*3/uL LAB HEMATOLOGY METHOD 06/15/2025 8:47 AM EDT [facility] Lymphocytes Absolute 0.60(L) 1.20 - 3.90 10*3/uL LAB HEMATOLOGY METHOD 06/15/2025 8:47 AM EDT [facility] Monocytes Absolute 1.29(H) 0.30 - 0.90 10*3/uL LAB HEMATOLOGY METHOD 06/15/2025 8:47 AM EDT [facility] Eosinophils Absolute 0.00 0.00 - 0.50 10*3/uL LAB HEMATOLOGY METHOD 06/15/2025 8:47 AM EDT [facility] Basophils Absolute 0.02 0.00 - 0.10 10*3/uL LAB HEMATOLOGY METHOD 06/15/2025 8:47 AM EDT [facility] Immature Granulocytes Absolute 0.06 0.00 - 0.06 10*3/uL LAB HEMATOLOGY METHOD 06/15/2025 8:47 AM EDT [facility] Blood Venous blood specimen / Unknown Venipuncture / Unknown 06/15/2025 8:18 AM EDT 06/15/2025 8:34 AM EDT Narrative [facility] - 06/15/2025 8:47 AM EDT Therapeutic decision making should be based on absolute values, rather than percentages. us Phillip Clark MD LAB BLOOD ORDERABLES Final R esult [facility] [address] [place] [address] * (ABNORMAL) Protime-INR (06/15/2025 6:40 AM EDT) Prothrombin Time 16.5(H) 12.0 - 14.3 sec LAB COAGULATION METHOD 06/15/2025 7:53 AM EDT [facility] INR 1.3(H) 0.9 - 1.1 LAB COAGULATION METHOD 06/15/2025 7:53 AM EDT [facility] Blood Arterial blood specimen / Unknown Venipuncture / Unknown 06/15/2025 6:40 AM EDT 06/15/2025 6:47 AM EDT Narrative [facility] - 06/15/2025 7:53 AM EDT OPTIMAL INR RANGES FOR PATIENT ON ORAL ANTICOAGULANT THERAPY Prevention of venous thromboembolism INR 2.0 to 3.0 In patients with heart disease: Atrial fibrillation INR 2.0 to 3.0 Valvular heart disease INR 2.0 to 3.0 Tissue heart valves INR 2.0 to 3.0 Mechanical prosthetic valves INR 2.5 to 3.5 Prevention of recurrent GA INR 2.5 to 3.5 Phillip Clark MD LAB BLOOD ORDERABLES Final R esult Performing Organization Address City/[facility] Co de Phone Number [facility] [address] [place] [address] * Ionized calcium, whole blood (06/15/2025 6:40 AM EDT) Ionized Calcium, Whole Blood 4.6 4.6 - 5.1 mg/dL LAB HEMATOLOGY METHOD 06/15/2025 6:50 AM EDT [facility] Blood Arterial blood specimen / Unknown Venipuncture / Unknown 06/15/2025 6:40 AM EDT 06/15/2025 6:48 AM EDT Phillip Clark MD LAB BLOOD ORDERABLES Final R esult Performing Organization Address [facility] Co de Phone Number [facility] [address] [place] [address] * ECG Adult - POD 1 (06/15/2025 5:20 AM EDT) EKG DIAGNOSIS CLASS Abnormal MUSE ECG Ventricular Rate 71 BPM MUSE ECG Atrial Rate 71 BPM MUSE ECG MI Interval 182 ms MUSE ECG QRSD Interval 108 ms MUSE ECG QT Interval 418 ms MUSE ECG QTC Interval 454 ms MUSE ECG P Stringer 51 degrees MUSE ECG R Stringer -48 degrees MUSE ECG T Wave Stringer -12 degrees MUSE ECG Diagnosis Normal sinus rhythm MUSE ECG Diagnosis Left anterior fascicular block MUSE ECG Diagnosis Abnormal ECG MUSE ECG Diagnosis MUSE ECG Diagnosis Confirmed by Bimal Brambila ([id number]) on 06/15/2025 11:38:57 AM MUSE ECG 06/15/2025 5:20 AM EDT 06/15/2025 11:38 AM EDT Phillip Clark MD ECG ORDERABLES Final Result Performing Organization Address City/[facility] Co de Phone Number MUSE ECG * (ABNORMAL) Blood gas panel, arterial (06/15/2025 3:58 AM EDT) pH, Arterial 7.39 7.31 - 7.42 LAB HEMATOLOGY METHOD 06/15/2025 4:06 AM EDT [facility] pCO2, Arterial 39 32 - 45 mmHg LAB HEMATOLOGY METHOD 06/15/2025 4:06 AM EDT [facility] pO2, Arterial 79(L) >80 mmHg LAB HEMATOLOGY METHOD 06/15/2025 4:06 AM EDT [facility] SO2, Measured, Arterial 97 94 - 98 % LAB HEMATOLOGY METHOD 06/15/2025 4:06 AM EDT [facility] Base Excess, Arterial -1.2 -2.0 - 3.0 mmol/L LAB HEMATOLOGY METHOD 06/15/2025 4:06 AM EDT [facility] Bicarbonate, Calculated, Arterial 24 22 - 26 mmol/L LAB HEMATOLOGY METHOD 06/15/2025 4:06 AM EDT [facility] Hematocrit, Whole Blood 39.7(L) 40.0 - 51.0 % LAB HEMATOLOGY METHOD 06/15/2025 4:06 AM EDT [facility] Sodium, Whole Blood 134(L) 136 - 145 mmol/L LAB HEMATOLOGY METHOD 06/15/2025 4:06 AM EDT [facility] Potassium, Whole Blood 4.4 3.6 - 4.9 mmol/L LAB HEMATOLOGY METHOD 06/15/2025 4:06 AM EDT [facility] Chloride, Whole Blood 108(H) 97 - 107 mmol/L LAB HEMATOLOGY METHOD 06/15/2025 4:06 AM EDT [facility] Glucose, Whole Blood 132(H) 74 - 99 mg/dL LAB HEMATOLOGY METHOD 06/15/2025 4:06 AM EDT [facility] Ionized Calcium, Whole Blood 4.5(L) 4.6 - 5.1 mg/dL LAB HEMATOLOGY METHOD 06/15/2025 4:06 AM EDT [facility] Lactate, Arterial, Whole Blood 0.9 0.5 - 1.6 mmol/L LAB HEMATOLOGY METHOD 06/15/2025 4:06 AM EDT [facility] Blood Arterial blood specimen / Unknown Arterial Puncture / Unknown 06/15/2025 3:58 AM EDT 06/15/2025 4:06 AM EDT us Phillip Clark MD LAB BLOOD ORDERABLES Final R esult [facility] [address] [place] [address] * XR Chest 1 View (06/15/2025 2:53 [...] of NG tube. Right internal jugular approach Bagwell-Shira catheter and mediastinal drain in unchanged position. [...] IMG XR PROCEDURES Final Resu lt * [place] CRITICAL CARE, ADDL 30 MIN, [place] CRITICAL CARE, ADDL 30 MIN (06/15/2025 12:21 [...] LAB HEMATOLOGY METHOD 06/15/2025 8:17 AM EDT [facility] Neutrophils % 85 % LAB HEMATOLOGY METHOD 06/15/2025 8:17 AM EDT [facility] Lymphocytes % 4 % LAB HEMATOLOGY METHOD 06/15/2025 8:17 AM EDT [facility] Monocytes % 10 % LAB HEMATOLOGY METHOD 06/15/2025 8:17 AM EDT [facility] Eosinophils % 0 % LAB HEMATOLOGY METHOD 06/15/2025 8:17 AM EDT [facility] Basophils % 0 % LAB HEMATOLOGY METHOD 06/15/2025 8:17 AM EDT [facility] Immature Granulocytes % 1 % LAB HEMATOLOGY METHOD 06/15/2025 8:17 AM EDT [facility] Immature Granulocytes Absolute 0.05 0.00 - 0.06 10*3/uL LAB HEMATOLOGY METHOD 06/15/2025 8:17 AM EDT [facility] Neutrophils Absolute 9.28(H) 1.60 - 6.10 10*3/uL LAB HEMATOLOGY METHOD 06/15/2025 8:17 AM EDT [facility] Lymphocytes Absolute 0.45(L) 1.20 - 3.90 10*3/uL LAB HEMATOLOGY METHOD 06/15/2025 8:17 AM EDT [facility] Monocytes Absolute 1.14(H) 0.30 - 0.90 10*3/uL LAB HEMATOLOGY METHOD 06/15/2025 8:17 AM EDT [facility] Basophils Absolute 0.02 0.00 - 0.10 10*3/uL LAB HEMATOLOGY METHOD 06/15/2025 8:17 AM EDT [facility] Eosinophils Absolute 0.00 0.00 - 0.50 10*3/uL LAB HEMATOLOGY METHOD 06/15/2025 8:17 AM EDT [facility] Blood Venous blood specimen / Unknown Venipuncture / Unknown 06/15/2025 12:20 AM EDT 06/15/2025 12:26 AM EDT Phillip Clark MD LAB BLOOD ORDERABLES Final R esult [facility] [address] [place] [address] * Phosphorus (06/15/2025 12:20 AM EDT) Phosphorus, Plasma 2.6 2.5 - 4.5 mg/dL 06/15/2025 8:33 AM EDT [facility] Blood Venous blood specimen / Unknown Venipuncture / Unknown 06/15/2025 12:20 AM EDT 06/15/2025 12:26 AM EDT Phillip Clark MD LAB BLOOD ORDERABLES Final R esult [facility] [address] [place] [address] * (ABNORMAL) Magnesium (06/15/2025 12:20 AM EDT) Magnesium, Plasma 2.5(H) 1.9 - 2.4 mg/dL 06/15/2025 7:37 AM EDT [facility] Blood Venous blood specimen / Unknown Venipuncture / Unknown 06/15/2025 12:20 AM EDT 06/15/2025 12:26 AM EDT us Phillip Clark MD LAB BLOOD ORDERABLES Final R esult [facility] [address] [place] [address] * (ABNORMAL) Basic metabolic panel (06/15/2025 12:20 AM EDT) Glucose, Plasma 140(H) 74 - 99 mg/dL 06/15/2025 7:37 AM EDT [facility] BUN, Plasma 17 8 - 23 mg/dL 06/15/2025 7:37 AM EDT [facility] Creatinine, Plasma 0.84 0.70 - 1.20 mg/dL 06/15/2025 7:37 AM EDT [facility] BUN/Creatinine Ratio 20 06/15/2025 7:37 AM EDT [facility] Sodium, Plasma 138 136 - 145 mmol/L 06/15/2025 7:37 AM EDT [facility] Potassium, Plasma 4.6 3.6 - 4.9 mmol/L 06/15/2025 7:37 AM EDT [facility] Chloride, Plasma 107 97 - 107 mmol/L 06/15/2025 7:37 AM EDT [facility] CO2, Plasma 18(L) 22 - 29 mmol/L 06/15/2025 7:37 AM EDT [facility] Anion Gap 13 6 - 16 mmol/L 06/15/2025 7:37 AM EDT [facility] Total Calcium, Plasma 8.0(L) 8.9 - 10.2 mg/dL 06/15/2025 7:37 AM EDT [facility] eGFRcr 94.4 mL/min/1.7 3m*2 06/15/2025 7:37 AM EDT [facility] Comment:Reported eGFRcr in m L/min/1.73m2 is based the CKD-EPI 2020 equation that does not use a race coefficient. Blood Venous blood specimen / Unknown Venipuncture / Unknown 06/15/2025 12:20 AM EDT 06/15/2025 12:26 AM EDT us Phillip Clark MD LAB BLOOD ORDERABLES Final R esult [facility] [address] [place] [address] * (ABNORMAL) CBC W/O Differential (06/15/2025 12:20 AM EDT) WBC Count 10.94(H) 3.70 - 10.30 10*3/uL LAB HEMATOLOGY METHOD 06/15/2025 8:32 AM EDT [facility] RBC Count 4.94 4.60 - 6.10 10*6/uL LAB HEMATOLOGY METHOD 06/15/2025 8:32 AM EDT [facility] HGB 13.6(L) 13.7 - 17.5 g/dL LAB HEMATOLOGY METHOD 06/15/2025 8:32 AM EDT [facility] HCT 41.0 40.0 - 51.0 % LAB HEMATOLOGY METHOD 06/15/2025 8:32 AM EDT [facility] Platelet Count 142(L) 155 - 369 10*3/uL LAB HEMATOLOGY METHOD 06/15/2025 8:32 AM EDT [facility] MCV 87 79 - 98 fL LAB HEMATOLOGY METHOD 06/15/2025 8:32 AM EDT [facility] MCH 27.5 26.0 - 32.0 pg LAB HEMATOLOGY METHOD 06/15/2025 8:32 AM EDT [facility] MCHC 31.8 30.7 - 35.5 g/dL LAB HEMATOLOGY METHOD 06/15/2025 8:32 AM EDT [facility] RDW 15.6(H) 11.5 - 14.5 % LAB HEMATOLOGY METHOD 06/15/2025 8:32 AM EDT [facility] MPV 11.1 8.8 - 12.5 fL LAB HEMATOLOGY METHOD 06/15/2025 8:32 AM EDT [facility] nRBC 0.0 <=0.0 per 100 WBCs LAB HEMATOLOGY METHOD 06/15/2025 8:32 AM EDT [facility] Blood Venous blood specimen / Unknown Venipuncture / Unknown 06/15/2025 12:20 AM EDT 06/15/2025 12:26 AM EDT Phillip Clark MD LAB BLOOD ORDERABLES Final R esult Performing Organization Address City/[facility]/ZIP Co de Phone Number [facility] [address] [place] [address] * Potassium, Plasma (06/15/2025 12:20 AM EDT) Potassium, Plasma 4.5 3.6 - 4.9 mmol/L 06/15/2025 12:51 AM EDT [facility] Blood Venous blood specimen / Unknown Venipuncture / Unknown 06/15/2025 12:20 AM EDT 06/15/2025 12:26 AM EDT Phillip Clark MD LAB BLOOD ORDERABLES Final R esult Performing Organization Address City/[facility] Co de Phone Number [facility] [address] [place] [address] * Hematocrit (06/15/2025 12:20 AM EDT) HCT 41.0 40.0 - 51.0 % LAB HEMATOLOGY METHOD 06/15/2025 12:36 AM EDT [facility] Blood Venous blood specimen / Unknown Venipuncture / Unknown 06/15/2025 12:20 AM EDT 06/15/2025 12:26 AM EDT us Phillip Clark MD LAB BLOOD ORDERABLES Final R esult Performing Organization Address City/[facility]/ZIP Co de Phone Number [facility] [address] [place] [address] * (ABNORMAL) Hemoglobin (06/15/2025 12:20 AM EDT) Pathologist [facility] HGB 13.6(L) 13.7 - 17.5 g/dL LAB HEMATOLOGY METHOD 06/15/2025 12:36 AM EDT [facility] Blood Venous blood specimen / Unknown Venipuncture / Unknown 06/15/2025 12:20 AM EDT 06/15/2025 12:26 AM EDT us Phillip Clark MD LAB BLOOD ORDERABLES Final R esult [facility] [address] [place] [address] * (ABNORMAL) Blood gas, arterial (06/15/2025 12:20 AM EDT) Pathologist [facility] pH, Arterial 7.37 7.31 - 7.42 LAB HEMATOLOGY METHOD 06/15/2025 12:37 AM EDT [facility] pCO2, Arterial 40 32 - 45 mmHg LAB HEMATOLOGY METHOD 06/15/2025 12:37 AM EDT [facility] pO2, Arterial 65(L) >80 mmHg LAB HEMATOLOGY METHOD 06/15/2025 12:37 AM EDT [facility] SO2, Measured, Arterial 94 94 - 98 % LAB HEMATOLOGY METHOD 06/15/2025 12:37 AM EDT [facility] Base Excess, Arterial -1.8 -2.0 - 3.0 mmol/L LAB HEMATOLOGY METHOD 06/15/2025 12:37 AM EDT [facility] Bicarbonate, Calculated, Arterial 23 22 - 26 mmol/L LAB HEMATOLOGY METHOD 06/15/2025 12:37 AM EDT [facility] Hematocrit, Whole Blood 41.1 40.0 - 51.0 % LAB HEMATOLOGY METHOD 06/15/2025 12:37 AM EDT [facility] Sodium, Whole Blood 137 136 - 145 mmol/L LAB HEMATOLOGY METHOD 06/15/2025 12:37 AM EDT [facility] Potassium, Whole Blood 4.2 3.6 - 4.9 mmol/L LAB HEMATOLOGY METHOD 06/15/2025 12:37 AM EDT [facility] Chloride, Whole Blood 110(H) 97 - 107 mmol/L LAB HEMATOLOGY METHOD 06/15/2025 12:37 AM EDT [facility] Glucose, Whole Blood 140(H) 74 - 99 mg/dL LAB HEMATOLOGY METHOD 06/15/2025 12:37 AM EDT [facility] Ionized Calcium, Whole Blood 4.5(L) 4.6 - 5.1 mg/dL LAB HEMATOLOGY METHOD 06/15/2025 12:37 AM EDT [facility] Lactate, Arterial, Whole Blood 1.8(H) 0.5 - 1.6 mmol/L LAB HEMATOLOGY METHOD 06/15/2025 12:37 AM EDT [facility] Blood Arterial blood specimen / Unknown Arterial Puncture / Unknown 06/15/2025 12:20 AM EDT 06/15/2025 12:34 AM EDT us Phillip Clark MD LAB BLOOD ORDERABLES Final R esult [facility] [address] [place] [address] * (ABNORMAL) Blood gas, arterial (06/14/2025 8:04 PM EDT) pH, Arterial 7.35 7.31 - 7.42 LAB HEMATOLOGY METHOD 06/14/2025 8:19 PM EDT [facility] pCO2, Arterial 39 32 - 45 mmHg LAB HEMATOLOGY METHOD 06/14/2025 8:19 PM EDT [facility] pO2, Arterial 88 >80 mmHg LAB HEMATOLOGY METHOD 06/14/2025 8:19 PM EDT [facility] SO2, Measured, Arterial 98 94 - 98 % LAB HEMATOLOGY METHOD 06/14/2025 8:19 PM EDT [facility] Base Excess, Arterial -3.7(L) -2.0 - 3.0 mmol/L LAB HEMATOLOGY METHOD 06/14/2025 8:19 PM EDT [facility] Bicarbonate, Calculated, Arterial 22 22 - 26 mmol/L LAB HEMATOLOGY METHOD 06/14/2025 8:19 PM EDT [facility] Hematocrit, Whole Blood 44.7 40.0 - 51.0 % LAB HEMATOLOGY METHOD 06/14/2025 8:19 PM EDT [facility] Sodium, Whole Blood 138 136 - 145 mmol/L LAB HEMATOLOGY METHOD 06/14/2025 8:19 PM EDT [facility] Potassium, Whole Blood 4.5 3.6 - 4.9 mmol/L LAB HEMATOLOGY METHOD 06/14/2025 8:19 PM EDT [facility] Chloride, Whole Blood 109(H) 97 - 107 mmol/L LAB HEMATOLOGY METHOD 06/14/2025 8:19 PM EDT [facility] Glucose, Whole Blood 185(H) 74 - 99 mg/dL LAB HEMATOLOGY METHOD 06/14/2025 8:19 PM EDT [facility] Ionized Calcium, Whole Blood 4.5(L) 4.6 - 5.1 mg/dL LAB HEMATOLOGY METHOD 06/14/2025 8:19 PM EDT [facility] Lactate, Arterial, Whole Blood 3.0(H) 0.5 - 1.6 mmol/L LAB HEMATOLOGY METHOD 06/14/2025 8:19 PM EDT [facility] Blood Arterial blood specimen / Unknown Arterial Puncture / Unknown 06/14/2025 8:04 PM EDT 06/14/2025 8:14 PM EDT us Phillip Clark MD LAB BLOOD ORDERABLES Final R esult [facility] [address] [place] [address] * Potassium (06/14/2025 8:03 PM EDT) Potassium, Plasma 4.9 3.6 - 4.9 mmol/L 06/14/2025 8:33 PM EDT [facility] Blood Arterial blood specimen / Unknown Venipuncture / Unknown 06/14/2025 8:03 PM EDT 06/14/2025 8:11 PM EDT us Phillip Clark MD LAB BLOOD ORDERABLES Final R esult [facility] [address] [place] [address] * (ABNORMAL) Magnesium (06/14/2025 8:03 PM EDT) Magnesium, Plasma 2.7(H) 1.9 - 2.4 mg/dL 06/14/2025 8:40 PM EDT [facility] Blood Arterial blood specimen / Unknown Venipuncture / Unknown 06/14/2025 8:03 PM EDT 06/14/2025 8:11 PM EDT us Phillip Clark MD LAB BLOOD ORDERABLES Final R esult [facility] [address] [place] [address] * (ABNORMAL) CBC (06/14/2025 8:03 PM EDT) WBC Count 13.98(H) 3.70 - 10.30 10*3/uL LAB HEMATOLOGY METHOD 06/14/2025 8:20 PM EDT [facility] RBC Count 5.14 4.60 - 6.10 10*6/uL LAB HEMATOLOGY METHOD 06/14/2025 8:20 PM EDT [facility] HGB 14.5 13.7 - 17.5 g/dL LAB HEMATOLOGY METHOD 06/14/2025 8:20 PM EDT [facility] HCT 43.9 40.0 - 51.0 % LAB HEMATOLOGY METHOD 06/14/2025 8:20 PM EDT [facility] Platelet Count 158 155 - 369 10*3/uL LAB HEMATOLOGY METHOD 06/14/2025 8:20 PM EDT [facility] MCV 85 79 - 98 fL LAB HEMATOLOGY METHOD 06/14/2025 8:20 PM EDT [facility] MCH 28.2 26.0 - 32.0 pg LAB HEMATOLOGY METHOD 06/14/2025 8:20 PM EDT [facility] MCHC 33.0 30.7 - 35.5 g/dL LAB HEMATOLOGY METHOD 06/14/2025 8:20 PM EDT [facility] RDW 14.9(H) 11.5 - 14.5 % LAB HEMATOLOGY METHOD 06/14/2025 8:20 PM EDT [facility] MPV 10.8 8.8 - 12.5 fL LAB HEMATOLOGY METHOD 06/14/2025 8:20 PM EDT [facility] nRBC 0.0 <=0.0 per 100 WBCs LAB HEMATOLOGY METHOD 06/14/2025 8:20 PM EDT [facility] Blood Arterial blood specimen / Unknown Venipuncture / Unknown 06/14/2025 8:03 PM EDT 06/14/2025 8:11 PM EDT us Phillip Clark MD LAB BLOOD ORDERABLES Final R esult [facility] [address] [place] [address] * (ABNORMAL) Basic metabolic panel (06/14/2025 8:03 PM EDT) Glucose, Plasma 194(H) 74 - 99 mg/dL 06/14/2025 8:40 PM EDT [facility] BUN, Plasma 16 8 - 23 mg/dL 06/14/2025 8:40 PM EDT [facility] Creatinine, Plasma 0.85 0.70 - 1.20 mg/dL 06/14/2025 8:40 PM EDT [facility] BUN/Creatinine Ratio 19 06/14/2025 8:40 PM EDT [facility] Sodium, Plasma 139 136 - 145 mmol/L 06/14/2025 8:40 PM EDT [facility] Potassium, Plasma 5.0(H) 3.6 - 4.9 mmol/L 06/14/2025 8:40 PM EDT [facility] Chloride, Plasma 109(H) 97 - 107 mmol/L 06/14/2025 8:40 PM EDT [facility] CO2, Plasma 20(L) 22 - 29 mmol/L 06/14/2025 8:40 PM EDT [facility] Anion Gap 10 6 - 16 mmol/L 06/14/2025 8:40 PM EDT [facility] Total Calcium, Plasma 8.2(L) 8.9 - 10.2 mg/dL 06/14/2025 8:40 PM EDT [facility] eGFRcr 94.1 mL/min/1.7 3m*2 06/14/2025 8:40 PM EDT [facility] Comment:Reported eGFRcr in m L/min/1.73m2 is based the CKD-EPI 2020 equation that does not use a race coefficient. Blood Arterial blood specimen / Unknown Venipuncture / Unknown 06/14/2025 8:03 PM EDT 06/14/2025 8:11 PM EDT us Phillip Clark MD LAB BLOOD ORDERABLES Final R esult [facility] [address] [place] [address] * (ABNORMAL) Blood gas panel, arterial (06/14/2025 6:47 PM EDT) pH, Arterial 7.30(L) 7.31 - 7.42 LAB HEMATOLOGY METHOD 06/14/2025 6:57 PM EDT [facility] pCO2, Arterial 41 32 - 45 mmHg LAB HEMATOLOGY METHOD 06/14/2025 6:57 PM EDT [facility] pO2, Arterial 70(L) >80 mmHg LAB HEMATOLOGY METHOD 06/14/2025 6:57 PM EDT [facility] SO2, Measured, Arterial 94 94 - 98 % LAB HEMATOLOGY METHOD 06/14/2025 6:57 PM EDT [facility] Base Excess, Arterial -5.6(L) -2.0 - 3.0 mmol/L LAB HEMATOLOGY METHOD 06/14/2025 6:57 PM EDT [facility] Bicarbonate, Calculated, Arterial 21(L) 22 - 26 mmol/L LAB HEMATOLOGY METHOD 06/14/2025 6:57 PM EDT [facility] Hematocrit, Whole Blood 45.5 40.0 - 51.0 % LAB HEMATOLOGY METHOD 06/14/2025 6:57 PM EDT [facility] Sodium, Whole Blood 138 136 - 145 mmol/L LAB HEMATOLOGY METHOD 06/14/2025 6:57 PM EDT [facility] Potassium, Whole Blood 4.4 3.6 - 4.9 mmol/L LAB HEMATOLOGY METHOD 06/14/2025 6:57 PM EDT [facility] Chloride, Whole Blood 109(H) 97 - 107 mmol/L LAB HEMATOLOGY METHOD 06/14/2025 6:57 PM EDT [facility] Glucose, Whole Blood 209(H) 74 - 99 mg/dL LAB HEMATOLOGY METHOD 06/14/2025 6:57 PM EDT [facility] Ionized Calcium, Whole Blood 4.6 4.6 - 5.1 mg/dL LAB HEMATOLOGY METHOD 06/14/2025 6:57 PM EDT [facility] Lactate, Arterial, Whole Blood 3.9(H) 0.5 - 1.6 mmol/L LAB HEMATOLOGY METHOD 06/14/2025 6:57 PM EDT [facility] Blood Arterial blood specimen / Unknown Arterial Puncture / Unknown 06/14/2025 6:47 PM EDT 06/14/2025 6:56 PM EDT us Phillip Clark MD LAB BLOOD ORDERABLES Final R esult [facility] [address] [place] [address] * [place] CRITICAL CARE, E/M 30-74 MINUTES (06/14/2025 5:35 [...] LAB HEMATOLOGY METHOD 06/14/2025 4:12 PM EDT [facility] pCO2, Arterial 43 32 - 45 mmHg LAB HEMATOLOGY METHOD 06/14/2025 4:12 PM EDT [facility] pO2, Arterial 126 >80 mmHg LAB HEMATOLOGY METHOD 06/14/2025 4:12 PM EDT [facility] SO2, Measured, Arterial 99(H) 94 - 98 % LAB HEMATOLOGY METHOD 06/14/2025 4:12 PM EDT [facility] Base Excess, Arterial -5.8(L) -2.0 - 3.0 mmol/L LAB HEMATOLOGY METHOD 06/14/2025 4:12 PM EDT [facility] Bicarbonate, Calculated, Arterial 21(L) 22 - 26 mmol/L LAB HEMATOLOGY METHOD 06/14/2025 4:12 PM EDT [facility] Hematocrit, Whole Blood 43.9 40.0 - 51.0 % LAB HEMATOLOGY METHOD 06/14/2025 4:12 PM EDT [facility] Sodium, Whole Blood 139 136 - 145 mmol/L LAB HEMATOLOGY METHOD 06/14/2025 4:12 PM EDT [facility] Potassium, Whole Blood 3.8 3.6 - 4.9 mmol/L LAB HEMATOLOGY METHOD 06/14/2025 4:12 PM EDT [facility] Chloride, Whole Blood 109(H) 97 - 107 mmol/L LAB HEMATOLOGY METHOD 06/14/2025 4:12 PM EDT [facility] Glucose, Whole Blood 179(H) 74 - 99 mg/dL LAB HEMATOLOGY METHOD 06/14/2025 4:12 PM EDT [facility] Ionized Calcium, Whole Blood 4.6 4.6 - 5.1 mg/dL LAB HEMATOLOGY METHOD 06/14/2025 4:12 PM EDT [facility] Lactate, Arterial, Whole Blood 4.3(H) 0.5 - 1.6 mmol/L LAB HEMATOLOGY METHOD 06/14/2025 4:12 PM EDT [facility] Blood Arterial blood specimen / Unknown Arterial Puncture / Unknown 06/14/2025 3:57 PM EDT 06/14/2025 4:11 PM EDT Phillip Clark MD LAB BLOOD ORDERABLES Final R esult [facility] [address] [place] [address] * (ABNORMAL) Blood gas panel with oximetry, mixed venous (06/14/2025 3:00 PM EDT) pH, Mixed Venous 7.28(L) 7.32 - 7.43 LAB HEMATOLOGY METHOD 06/14/2025 3:24 PM EDT [facility] pCO2, Mixed Venous 47 40 - 55 mmHg LAB HEMATOLOGY METHOD 06/14/2025 3:24 PM EDT [facility] pO2, Mixed Venous 54(H) 25 - 40 mmHg LAB HEMATOLOGY METHOD 06/14/2025 3:24 PM EDT [facility] SO2, Measured, Mixed Venous 84(H) 65 - 80 % LAB HEMATOLOGY METHOD 06/14/2025 3:24 PM EDT [facility] Bicarbonate, Calculated, Mixed Venous 22 22 - 26 mmol/L LAB HEMATOLOGY METHOD 06/14/2025 3:24 PM EDT [facility] Base Excess, Mixed Venous -4.7(L) -2.0 - 3.0 mmol/L LAB HEMATOLOGY METHOD 06/14/2025 3:24 PM EDT [facility] Hematocrit, Whole Blood 43.0 40.0 - 51.0 % LAB HEMATOLOGY METHOD 06/14/2025 3:24 PM EDT [facility] Sodium, Whole Blood 139 136 - 145 mmol/L LAB HEMATOLOGY METHOD 06/14/2025 3:24 PM EDT [facility] Potassium, Whole Blood 3.7 3.6 - 4.9 mmol/L LAB HEMATOLOGY METHOD 06/14/2025 3:24 PM EDT [facility] Chloride, Whole Blood 110(H) 97 - 107 mmol/L LAB HEMATOLOGY METHOD 06/14/2025 3:24 PM EDT [facility] Ionized Calcium, Whole Blood 4.6 4.6 - 5.1 mg/dL LAB HEMATOLOGY METHOD 06/14/2025 3:24 PM EDT [facility] Glucose, Whole Blood 149(H) 74 - 99 mg/dL LAB HEMATOLOGY METHOD 06/14/2025 3:24 PM EDT [facility] Oxyhemoglobin, Mixed Venous, Whole Blood 81.9(H) 40.0 - 70.0 % LAB HEMATOLOGY METHOD 06/14/2025 3:24 PM EDT [facility] Hemoglobin Reduced, Mixed Venous, Whole Blood 16.1 % LAB HEMATOLOGY METHOD 06/14/2025 3:24 PM EDT [facility] Total Hemoglobin, Mixed Venous, Whole Blood 14.0 13.7 - 17.5 g/dL LAB HEMATOLOGY METHOD 06/14/2025 3:24 PM EDT [facility] Blood Mixed venous blood specimen / Unknown Venipuncture / Unknown 06/14/2025 3:00 PM EDT 06/14/2025 3:23 PM EDT us Phillip Clark MD LAB BLOOD ORDERABLES Final R esult [facility] [address] [place] [address] * XR Abdomen 1 View (06/14/2025 2:57 [...] Detected Not Detected 06/15/2025 12:46 PM EDT [facility] Swab (Axilla and Groin) Non-blood Collection / Unknown 06/14/2025 2:37 PM EDT 06/14/2025 3:10 PM EDT Narrative [facility] - 06/15/2025 12:46 PM EDT This PCR assay was developed and its performance characteristics determined by [facility] as appropriate for clinical purposes. This assay has not been cleared or approved by the FDA, but is performed in a CLIA regulated laboratory that is qualified to perform high-complexity testing. Phillip Clark MD LAB MICROBIOLOGY - GENERAL O RDERABLES Final Result [facility] [address] [place] [address] * Multi Drug Resistance Test (06/14/2025 2:37 PM EDT) Pathologist [facility] Culture No growth at day 1 06/15/2025 4:03 PM EDT [facility] Swab (Nares and Smita Rectal) Non-blood Collection / Unknown 06/14/2025 2:37 PM EDT 06/14/2025 3:10 PM EDT Narrative [facility] - 06/15/2025 4:03 PM EDT This test was developed and its performance characteristics determined by the [facility]. Although the media is FDA-approved, it is not FDA-approved for all specimen types submitted. The FDA has determined that such clearance or approval is not necessary. This test is used for surveillance purposes. It should not be regarded as investigational or for research. The [facility] is certified under the Clinical Laboratory Improvement Amendments of 1988 (CLIA-88) as qualified to perform high complexity clinical laboratory testing. Phillip Clark MD LAB MICROBIOLOGY - GENERAL O RDERABLES Final Result [facility] [address] [place] [address] * (ABNORMAL) Blood gas, arterial (06/14/2025 2:37 PM EDT) Pathologist [facility] pH, Arterial 7.31 7.31 - 7.42 LAB HEMATOLOGY METHOD 06/14/2025 2:58 PM EDT [facility] pCO2, Arterial 42 32 - 45 mmHg LAB HEMATOLOGY METHOD 06/14/2025 2:58 PM EDT [facility] pO2, Arterial 154 >80 mmHg LAB HEMATOLOGY METHOD 06/14/2025 2:58 PM EDT [facility] SO2, Measured, Arterial 100(H) 94 - 98 % LAB HEMATOLOGY METHOD 06/14/2025 2:58 PM EDT [facility] Base Excess, Arterial -5.1(L) -2.0 - 3.0 mmol/L LAB HEMATOLOGY METHOD 06/14/2025 2:58 PM EDT [facility] Bicarbonate, Calculated, Arterial 21(L) 22 - 26 mmol/L LAB HEMATOLOGY METHOD 06/14/2025 2:58 PM EDT [facility] Hematocrit, Whole Blood 43.5 40.0 - 51.0 % LAB HEMATOLOGY METHOD 06/14/2025 2:58 PM EDT [facility] Sodium, Whole Blood 139 136 - 145 mmol/L LAB HEMATOLOGY METHOD 06/14/2025 2:58 PM EDT [facility] Potassium, Whole Blood 3.6 3.6 - 4.9 mmol/L LAB HEMATOLOGY METHOD 06/14/2025 2:58 PM EDT [facility] Chloride, Whole Blood 110(H) 97 - 107 mmol/L LAB HEMATOLOGY METHOD 06/14/2025 2:58 PM EDT [facility] Glucose, Whole Blood 131(H) 74 - 99 mg/dL LAB HEMATOLOGY METHOD 06/14/2025 2:58 PM EDT [facility] Ionized Calcium, Whole Blood 4.7 4.6 - 5.1 mg/dL LAB HEMATOLOGY METHOD 06/14/2025 2:58 PM EDT [facility] Lactate, Arterial, Whole Blood 5.0(H) 0.5 - 1.6 mmol/L LAB HEMATOLOGY METHOD 06/14/2025 2:58 PM EDT [facility] Blood Arterial blood specimen / Unknown Arterial Puncture / Unknown 06/14/2025 2:37 PM EDT 06/14/2025 2:57 PM EDT us Phillip Clark MD LAB BLOOD ORDERABLES Final R esult [facility] [address] [place] [address] * ECG Adult - Upon Admissoin to CVICU (06/14/2025 2:36 PM EDT) EKG DIAGNOSIS CLASS Abnormal MUSE ECG Ventricular Rate 61 BPM MUSE ECG Atrial Rate 61 BPM MUSE ECG MI Interval 176 ms MUSE ECG QRSD Interval 154 ms MUSE ECG QT Interval 520 ms MUSE ECG QTC Interval 523 ms MUSE ECG P Stringer 58 degrees MUSE ECG R Stringer 113 degrees MUSE ECG T Wave Stringer -67 degrees MUSE ECG Diagnosis Sinus rhythm with occasional ventricular-paced complexes MUSE ECG Diagnosis Suspect unspecified pacemaker failure MUSE ECG Diagnosis Nonspecific intraventricular block MUSE ECG Diagnosis Minimal voltage criteria for LVH, may be normal variant ( [place] product ) MUSE ECG Diagnosis Abnormal ECG MUSE ECG Diagnosis MUSE ECG Diagnosis Confirmed by Brenton Mejia ([id number]) on 06/14/2025 3:39:18 PM MUSE ECG 06/14/2025 2:36 PM EDT 06/14/2025 3:39 PM EDT Phillip Clark MD ECG ORDERABLES Final Result Performing Organization Address City/[facility]/ZIP Co de Phone Number MUSE ECG * Potassium, Plasma (06/14/2025 2:36 PM EDT) Potassium, Plasma 3.8 3.6 - 4.9 mmol/L 06/14/2025 4:13 PM EDT [facility] Comment:Hemolyzed, result ma y be falsely increased. Blood Venous blood specimen / Unknown Venipuncture / Unknown 06/14/2025 2:36 PM EDT 06/14/2025 3:20 PM EDT Phillip Clark MD LAB BLOOD ORDERABLES Final R esult Performing Organization Address [facility] Co de Phone Number [facility] [address] [place] [address] * Hematocrit (06/14/2025 2:36 PM EDT) [facility] HCT 42.6 40.0 - 51.0 % LAB HEMATOLOGY METHOD 06/14/2025 4:38 PM EDT [facility] Blood Venous blood specimen / Unknown Venipuncture / Unknown 06/14/2025 2:36 PM EDT 06/14/2025 4:17 PM EDT Phillip Clark MD LAB BLOOD ORDERABLES Final R esult Performing Organization Address City/[facility]/ZIP Co de Phone Number [facility] [address] [place] [address] * Hemoglobin (06/14/2025 2:36 PM EDT) HGB 13.9 13.7 - 17.5 g/dL LAB HEMATOLOGY METHOD 06/14/2025 4:38 PM EDT [facility] Blood Venous blood specimen / Unknown Venipuncture / Unknown 06/14/2025 2:36 PM EDT 06/14/2025 4:17 PM EDT Phillip Clark MD LAB BLOOD ORDERABLES Final R esult Performing Organization Address [facility]/ZIP Co de Phone Number [facility] [address] [place] [address] * APTT (06/14/2025 2:36 PM EDT) aPTT 29 25 - 35 sec LAB COAGULATION METHOD 06/14/2025 4:11 PM EDT [facility] Blood Venous blood specimen / Unknown Venipuncture / Unknown 06/14/2025 2:36 PM EDT 06/14/2025 3:18 PM EDT Phillip Clark MD LAB BLOOD ORDERABLES Final R esult Performing Organization Address City/[facility] Co de Phone Number [facility] [address] [place] [address] * (ABNORMAL) Protime-INR (06/14/2025 2:36 PM EDT) Prothrombin Time 16.6(H) 12.0 - 14.3 sec LAB COAGULATION METHOD 06/14/2025 4:11 PM EDT [facility] INR 1.3(H) 0.9 - 1.1 LAB COAGULATION METHOD 06/14/2025 4:11 PM EDT [facility] Blood Venous blood specimen / Unknown Venipuncture / Unknown 06/14/2025 2:36 PM EDT 06/14/2025 3:18 PM EDT Narrative [facility] - 06/14/2025 4:11 PM EDT OPTIMAL INR RANGES FOR PATIENT ON ORAL ANTICOAGULANT THERAPY Prevention of venous thromboembolism INR 2.0 to 3.0 In patients with heart disease: Atrial fibrillation INR 2.0 to 3.0 Valvular heart disease INR 2.0 to 3.0 Tissue heart valves INR 2.0 to 3.0 Mechanical prosthetic valves INR 2.5 to 3.5 Prevention of recurrent GA INR 2.5 to 3.5 Phillip Clark MD LAB BLOOD ORDERABLES Final R esult Performing Organization Address [facility] Co de Phone Number [facility] [address] [place] [address] * (ABNORMAL) Phosphorus (06/14/2025 2:36 PM EDT) Phosphorus, Plasma 2.3(L) 2.5 - 4.5 mg/dL 06/14/2025 4:13 PM EDT [facility] Blood Venous blood specimen / Unknown Venipuncture / Unknown 06/14/2025 2:36 PM EDT 06/14/2025 3:20 PM EDT Phillip Clark MD LAB BLOOD ORDERABLES Final R esult Performing Organization Address [facility] Phone Number [facility] [address] [place] [address] * (ABNORMAL) Magnesium (06/14/2025 2:36 PM EDT) Magnesium, Plasma 3.2(H) 1.9 - 2.4 mg/dL 06/14/2025 6:55 PM EDT [facility] Blood Venous blood specimen / Unknown Venipuncture / Unknown 06/14/2025 2:36 PM EDT 06/14/2025 3:20 PM EDT Phillip Clark MD LAB BLOOD ORDERABLES Final R esult Performing Organization Address [facility] Co de Phone Number [facility] [address] [place] [address] * (ABNORMAL) Basic metabolic panel (06/14/2025 2:36 PM EDT) Glucose, Plasma 134(H) 74 - 99 mg/dL 06/14/2025 4:13 PM EDT [facility] BUN, Plasma 14 8 - 23 mg/dL 06/14/2025 4:13 PM EDT [facility] Creatinine, Plasma 0.83 0.70 - 1.20 mg/dL 06/14/2025 4:13 PM EDT [facility] BUN/Creatinine Ratio 17 06/14/2025 4:13 PM EDT [facility] Sodium, Plasma 140 136 - 145 mmol/L 06/14/2025 4:13 PM EDT [facility] Potassium, Plasma 3.8 3.6 - 4.9 mmol/L 06/14/2025 4:13 PM EDT [facility] Comment:Hemolyzed, result ma y be falsely increased. Chloride, Plasma 108(H) 97 - 107 mmol/L 06/14/2025 4:13 PM EDT [facility] CO2, Plasma 19(L) 22 - 29 mmol/L 06/14/2025 4:13 PM EDT [facility] Anion Gap 13 6 - 16 mmol/L 06/14/2025 4:13 PM EDT [facility] Total Calcium, Plasma 8.3(L) 8.9 - 10.2 mg/dL 06/14/2025 4:13 PM EDT [facility] eGFRcr 94.7 mL/min/1.7 3m*2 06/14/2025 4:13 PM EDT [facility] Comment:Reported eGFRcr in m L/min/1.73m2 is based the CKD-EPI 2020 equation that does not use a race coefficient. Blood Venous blood specimen / Unknown Venipuncture / Unknown 06/14/2025 2:36 PM EDT 06/14/2025 3:20 PM EDT us Phillip Clark MD LAB BLOOD ORDERABLES Final R esult [facility] [address] [place] [address] * (ABNORMAL) CBC (06/14/2025 2:36 PM EDT) WBC Count 15.83(H) 3.70 - 10.30 10*3/uL LAB HEMATOLOGY METHOD 06/14/2025 4:38 PM EDT [facility] RBC Count 4.98 4.60 - 6.10 10*6/uL LAB HEMATOLOGY METHOD 06/14/2025 4:38 PM EDT [facility] HGB 13.9 13.7 - 17.5 g/dL LAB HEMATOLOGY METHOD 06/14/2025 4:38 PM EDT [facility] HCT 42.6 40.0 - 51.0 % LAB HEMATOLOGY METHOD 06/14/2025 4:38 PM EDT [facility] Platelet Count 160 155 - 369 10*3/uL LAB HEMATOLOGY METHOD 06/14/2025 4:38 PM EDT [facility] MCV 86 79 - 98 fL LAB HEMATOLOGY METHOD 06/14/2025 4:38 PM EDT [facility] MCH 27.9 26.0 - 32.0 pg LAB HEMATOLOGY METHOD 06/14/2025 4:38 PM EDT [facility] MCHC 32.6 30.7 - 35.5 g/dL LAB HEMATOLOGY METHOD 06/14/2025 4:38 PM EDT [facility] RDW 15.2(H) 11.5 - 14.5 % LAB HEMATOLOGY METHOD 06/14/2025 4:38 PM EDT [facility] MPV 10.3 8.8 - 12.5 fL LAB HEMATOLOGY METHOD 06/14/2025 4:38 PM EDT [facility] nRBC 0.0 <=0.0 per 100 WBCs LAB HEMATOLOGY METHOD 06/14/2025 4:38 PM EDT [facility] Blood Venous blood specimen / Unknown Venipuncture / Unknown 06/14/2025 2:36 PM EDT 06/14/2025 4:17 PM EDT us Phillip Clark MD LAB BLOOD ORDERABLES Final R esult [facility] [address] [place] [address] * (ABNORMAL) POCT arterial blood gas gem (06/14/2025 2:00 PM EDT) pH, Arterial 7.35 7.31 - 7.42 06/14/2025 2:02 PM EDT [facility] pCO2, Arterial 38 32 - 45 mm Hg 06/14/2025 2:02 PM EDT [facility] pO2, Arterial 376 >80 mm Hg 06/14/2025 2:02 PM EDT [facility] SO2, Arterial 100(H) 94 - 98 % 06/14/2025 2:02 PM EDT [facility] Base Excess, Arterial -4.2(L) -2 - 3 mmol/L 06/14/2025 2:02 PM EDT [facility] HCO3, Arterial 21.0(L) 22 - 26 mmol/L 06/14/2025 2:02 PM EDT [facility] Total Hemoglobin, Arterial, Whole Blood 14.5 13.7 - 17.5 g/dL 06/14/2025 2:02 PM [facility] Hematocrit, Arterial 44.0 40 - 51.0 % 06/14/2025 2:02 PM T [facility] Sodium, Arterial 136 136 - 145 mmol/L 06/14/2025 2:02 PM T [facility] Potassium, Arterial 3.4(L) 3.6 - 4.9 mmol/L 06/14/2025 2:02 PM [facility] Chloride, Whole Blood 105 97 - 107 mmol/L 06/14/2025 2:02 PM [facility] Glucose, Arterial 138(H) 74 - 99 mg/dL 06/14/2025 2:02 PM T [facility] Ionized Calcium, Arterial 4.9 4.6 - 5.1 mg/dL 06/14/2025 2:02 PM [facility] Lactate, Arterial 4.2(H) 0.5 - 1.6 mmol/L 06/14/2025 2:02 PM EDT [facility] Body Temperature 37.0 Celsius 06/14/2025 2:02 PM [facility] pH, Temp Corrected, Arterial 7.35 7.31 - 7.42 06/14/2025 2:02 PM [facility] pCO2, Temp Corrected, Arterial 38 32 - 45 mm Hg 06/14/2025 2:02 PM [facility] pO2, Temp Corrected, Arterial 376 >80 mm Hg 06/14/2025 2:02 PM T [facility] Patient Services Specialist ID Ricki Zamarripa 06/14/2025 2:02 PM [facility] Blood Whole blood specimen / Unknown 06/14/2025 2:00 PM EDT 06/14/2025 2:02 PM EDT Phillip Clark MD LAB POINT OF CARE TE ST DOCKED DEVICE UNSOLICITED RESULTS Final Result [facility] [address] [place] [address] * (ABNORMAL) POCT arterial blood gas gem (06/14/2025 1:22 PM EDT) pH, Arterial 7.34 7.31 - 7.42 06/14/2025 1:23 PM EDT [facility] pCO2, Arterial 41 32 - 45 mm Hg 06/14/2025 1:23 PM EDT [facility] pO2, Arterial 518 >80 mm Hg 06/14/2025 1:23 PM EDT [facility] SO2, Arterial 100(H) 94 - 98 % 06/14/2025 1:23 PM EDT [facility] Base Excess, Arterial -3.5(L) -2 - 3 mmol/L 06/14/2025 1:23 PM EDT [facility] HCO3, Arterial 22.1 22 - 26 mmol/L 06/14/2025 1:23 PM EDT [facility] Total Hemoglobin, Arterial, Whole Blood 13.2(L) 13.7 - 17.5 g/dL 06/14/2025 1:23 PM EDT [facility] Hematocrit, Arterial 40.0 40 - 51.0 % 06/14/2025 1:23 PM EDT [facility] Sodium, Arterial 139 136 - 145 mmol/L 06/14/2025 1:23 PM EDT [facility] Potassium, Arterial 3.3(L) 3.6 - 4.9 mmol/L 06/14/2025 1:23 PM EDT [facility] Chloride, Whole Blood 104 97 - 107 mmol/L 06/14/2025 1:23 PM EDT [facility] Glucose, Arterial 137(H) 74 - 99 mg/dL 06/14/2025 1:23 PM EDT [facility] Ionized Calcium, Arterial 4.2(L) 4.6 - 5.1 mg/dL 06/14/2025 1:23 PM EDT [facility] Lactate, Arterial 3.0(H) 0.5 - 1.6 mmol/L 06/14/2025 1:23 PM [facility] Body Temperature 37.0 Celsius 06/14/2025 1:23 PM EDT [facility] pH, Temp Corrected, Arterial 7.34 7.31 - 7.42 06/14/2025 1:23 PM EDT [facility] pCO2, Temp Corrected, Arterial 41 32 - 45 mm Hg 06/14/2025 1:23 PM EDT [facility] pO2, Temp Corrected, Arterial 518 >80 mm Hg 06/14/2025 1:23 PM EDT [facility] Patient Services Specialist ID Ricki Zamarripa 06/14/2025 1:23 PM EDT [facility] Blood Whole blood specimen / Unknown 06/14/2025 1:22 PM EDT 06/14/2025 1:23 PM EDT Phillip Clark MD LAB POINT OF CARE TE ST DOCKED DEVICE UNSOLICITED RESULTS Final Result [facility] [address] [place] [address] * (ABNORMAL) POCT arterial blood gas gem (06/14/2025 12:52 PM EDT) pH, Arterial 7.40 7.31 - 7.42 06/14/2025 12:54 PM EDT [facility] pCO2, Arterial 35 32 - 45 mm Hg 06/14/2025 12:54 PM EDT [facility] pO2, Arterial 399 >80 mm Hg 06/14/2025 12:54 PM EDT [facility] SO2, Arterial 100(H) 94 - 98 % 06/14/2025 12:54 PM EDT [facility] Base Excess, Arterial -2.6(L) -2 - 3 mmol/L 06/14/2025 12:54 PM EDT [facility] HCO3, Arterial 21.7(L) 22 - 26 mmol/L 06/14/2025 12:54 PM EDT [facility] Total Hemoglobin, Arterial, Whole Blood 11.7(L) 13.7 - 17.5 g/dL 06/14/2025 12:54 PM EDT [facility] Hematocrit, Arterial 35.0(L) 40 - 51.0 % 06/14/2025 12:54 PM EDT [facility] Sodium, Arterial 134(L) 136 - 145 mmol/L 06/14/2025 12:54 PM EDT [facility] Potassium, Arterial 4.2 3.6 - 4.9 mmol/L 06/14/2025 12:54 PM EDT [facility] Chloride, Whole Blood 107 97 - 107 mmol/L 06/14/2025 12:54 PM EDT [facility] Glucose, Arterial 148(H) 74 - 99 mg/dL 06/14/2025 12:54 PM EDT [facility] Ionized Calcium, Arterial 4.1(L) 4.6 - 5.1 mg/dL 06/14/2025 12:54 PM EDT [facility] Lactate, Arterial 2.2(H) 0.5 - 1.6 mmol/L 06/14/2025 12:54 PM EDT [facility] Body Temperature 37.0 Celsius 06/14/2025 12:54 PM EDT [facility] pH, Temp Corrected, Arterial 7.40 7.31 - 7.42 06/14/2025 12:54 PM EDT [facility] pCO2, Temp Corrected, Arterial 35 32 - 45 mm Hg 06/14/2025 12:54 PM EDT [facility] pO2, Temp Corrected, Arterial 399 >80 mm Hg 06/14/2025 12:54 PM EDT [facility] Patient Services Specialist ID Jean Claude Staley 06/14/2025 12:54 PM EDT [facility] Blood Whole blood specimen / Unknown 06/14/2025 12:52 PM EDT 06/14/2025 12:54 PM EDT us Phillip Clark MD LAB POINT OF CARE TE ST DOCKED DEVICE UNSOLICITED RESULTS Final Result [facility] [address] [place] [address] * POCT ACT (06/14/2025 12:43 PM EDT) ACT+ (HIGH RANGE) 98 68 - 600 Seconds 06/14/2025 12:49 PM EDT [facility] Patient Services Specialist ID Vick Dupont 06/14/2025 12:49 PM EDT [facility] ACT Device ID [id number] 06/14/2025 12:49 PM EDT [facility] Comment 06/14/2025 12:49 PM EDT [facility] Comment: ACT performed [...] ST DOCKED DEVICE UNSOLICITED RESULTS Final Result [facility] [address] LAB 800 [place] [address] * (ABNORMAL) POCT arterial blood gas gem (06/14/2025 12:16 PM EDT) pH, Arterial 7.42 7.31 - 7.42 06/14/2025 12:19 PM EDT [facility] pCO2, Arterial 36 32 - 45 mm Hg 06/14/2025 12:19 PM EDT [facility] pO2, Arterial 358 >80 mm Hg 06/14/2025 12:19 PM EDT [facility] SO2, Arterial 99(H) 94 - 98 % 06/14/2025 12:19 PM EDT [facility] Base Excess, Arterial -0.8 -2 - 3 mmol/L 06/14/2025 12:19 PM EDT [facility] HCO3, Arterial 23.4 22 - 26 mmol/L 06/14/2025 12:19 PM EDT [facility] Total Hemoglobin, Arterial, Whole Blood 11.3(L) 13.7 - 17.5 g/dL 06/14/2025 12:19 PM EDT [facility] Hematocrit, Arterial 34.0(L) 40 - 51.0 % 06/14/2025 12:19 PM EDT [facility] Sodium, Arterial 134(L) 136 - 145 mmol/L 06/14/2025 12:19 PM EDT [facility] Potassium, Arterial 5.7(H) 3.6 - 4.9 mmol/L 06/14/2025 12:19 PM EDT [facility] Chloride, Whole Blood 105 97 - 107 mmol/L 06/14/2025 12:19 PM EDT [facility] Glucose, Arterial 119(H) 74 - 99 mg/dL 06/14/2025 12:19 PM EDT [facility] Ionized Calcium, Arterial 4.0(L) 4.6 - 5.1 mg/dL 06/14/2025 12:19 PM EDT [facility] Lactate, Arterial 1.6 0.5 - 1.6 mmol/L 06/14/2025 12:19 PM EDT [facility] Body Temperature 37.0 Celsius 06/14/2025 12:19 PM EDT [facility] pH, Temp Corrected, Arterial 7.42 7.31 - 7.42 06/14/2025 12:19 PM EDT [facility] pCO2, Temp Corrected, Arterial 36 32 - 45 mm Hg 06/14/2025 12:19 PM EDT [facility] pO2, Temp Corrected, Arterial 358 >80 mm Hg 06/14/2025 12:19 PM EDT [facility] Patient Services Specialist ID Vick Dupont 06/14/2025 12:19 PM EDT [facility] Blood Whole blood specimen / Unknown 06/14/2025 12:16 PM EDT 06/14/2025 12:19 PM EDT us Phillip Clark MD LAB POINT OF CARE TE ST DOCKED DEVICE UNSOLICITED RESULTS Final Result [facility] [address] [place] [address] * (ABNORMAL) POCT arterial blood gas gem (06/14/2025 12:06 PM EDT) pH, Arterial 7.39 7.31 - 7.42 06/14/2025 12:09 PM EDT [facility] pCO2, Arterial 40 32 - 45 mm Hg 06/14/2025 12:09 PM EDT [facility] pO2, Arterial 378 >80 mm Hg 06/14/2025 12:09 PM EDT [facility] SO2, Arterial 100(H) 94 - 98 % 06/14/2025 12:09 PM T [facility] Base Excess, Arterial -0.7 -2 - 3 mmol/L 06/14/2025 12:09 PM [facility] HCO3, Arterial 24.2 22 - 26 mmol/L 06/14/2025 12:09 PM EDT [facility] Total Hemoglobin, Arterial, Whole Blood 11.5(L) 13.7 - 17.5 g/dL 06/14/2025 12:09 PM [facility] Hematocrit, Arterial 35.0(L) 40 - 51.0 % 06/14/2025 12: [facility] Sodium, Arterial 134(L) 136 - 145 mmol/L 06/14/2025 12: PM [facility] Potassium, Arterial 5.0(H) 3.6 - 4.9 mmol/L 06/14/2025 12:09 PM [facility] Chloride, Whole Blood 105 97 - 107 mmol/L 06/14/2025 12:09 PM [facility] Glucose, Arterial 123(H) 74 - 99 mg/dL 06/14/2025 12:09 PM [facility] Ionized Calcium, Arterial 4.2(L) 4.6 - 5.1 mg/dL 06/14/2025 12:09 PM [facility] Lactate, Arterial 1.2 0.5 - 1.6 mmol/L 06/14/2025 12:09 PM [facility] Body Temperature 37.0 Celsius 06/14/2025 12:09 PM [facility] pH, Temp Corrected, Arterial 7.39 7.31 - 7.42 06/14/2025 12:09 PM EDT [facility] pCO2, Temp Corrected, Arterial 40 32 - 45 mm Hg 06/14/2025 12:09 PM [facility] pO2, Temp Corrected, Arterial 378 >80 mm Hg 06/14/2025 12:09 PM EDT [facility] Patient Services Specialist ID Cresencio, Gene 06/14/2025 [facility] Blood Whole blood specimen / Unknown 06/14/2025 12:06 PM EDT 06/14/2025 12:09 PM EDT us Phillip Clark MD LAB POINT OF CARE TE ST DOCKED DEVICE UNSOLICITED RESULTS Final Result Performing Organization Address City/[facility] Co de Phone Number [facility] [address] [place] [address] * (ABNORMAL) QPLUS (06/14/2025 11:55 AM EDT) [...] Seconds 06/14/2025 12:12 PM EDT [facility] Patient Services Specialist ID Ricki Zamarripa 06/14/2025 12:12 PM EDT [facility] Device ID [id number] 06/14/2025 12:12 PM EDT [facility] Whole Blood 06/14/2025 11:5 5 AM EDT 06/14/2025 12:12 PM EDT Narrative [facility] - 06/14/2025 12:[address]: No Clot Detected us Phillip Clark MD LAB POINT OF CARE TE ST DOCKED DEVICE UNSOLICITED RESULTS Final Result Performing Organization Address City/[facility]/ZIP Co de Phone Number [facility] [address] [place] [address] * POCT ACT (06/14/2025 11:54 AM EDT) ACT+ (HIGH RANGE) 510 68 - 600 Seconds 06/14/2025 12:07 PM EDT [facility] Patient Services Specialist ID Vick Dupont 06/14/2025 12:07 PM EDT [facility] ACT Device ID [id number] 06/14/2025 12:07 PM EDT [facility] Comment 06/14/2025 12:07 PM EDT [facility] Comment: ACT performed [...] ST DOCKED DEVICE UNSOLICITED RESULTS Final Result [facility] [address] LAB [address] [place] [address] * (ABNORMAL) POCT arterial blood gas gem (06/14/2025 11:33 AM EDT) pH, Arterial 7.37 7.31 - 7.42 06/14/2025 11:35 AM EDT [facility] pCO2, Arterial 43 32 - 45 mm Hg 06/14/2025 11:35 AM EDT [facility] pO2, Arterial 380 >80 mm Hg 06/14/2025 11:35 AM EDT [facility] SO2, Arterial 99(H) 94 - 98 % 06/14/2025 11:35 AM EDT [facility] Base Excess, Arterial -0.5 -2 - 3 mmol/L 06/14/2025 11:35 AM EDT [facility] HCO3, Arterial 24.9 22 - 26 mmol/L 06/14/2025 11:35 AM EDT [facility] Total Hemoglobin, Arterial, Whole Blood 11.5(L) 13.7 - 17.5 g/dL 06/14/2025 11:35 AM EDT [facility] Hematocrit, Arterial 35.0(L) 40 - 51.0 % 06/14/2025 11:35 AM EDT [facility] Sodium, Arterial 134(L) 136 - 145 mmol/L 06/14/2025 11:35 AM EDT [facility] Potassium, Arterial 5.6(H) 3.6 - 4.9 mmol/L 06/14/2025 11:35 AM EDT [facility] Chloride, Whole Blood 103 97 - 107 mmol/L 06/14/2025 11:35 AM EDT [facility] Glucose, Arterial 123(H) 74 - 99 mg/dL 06/14/2025 11:35 AM EDT [facility] Ionized Calcium, Arterial 4.2(L) 4.6 - 5.1 mg/dL 06/14/2025 11:35 AM EDT [facility] Lactate, Arterial 1.0 0.5 - 1.6 mmol/L 06/14/2025 11:35 AM EDT [facility] Body Temperature 37.0 Celsius 06/14/2025 11:35 AM EDT [facility] pH, Temp Corrected, Arterial 7.37 7.31 - 7.42 06/14/2025 11:35 AM EDT [facility] pCO2, Temp Corrected, Arterial 43 32 - 45 mm Hg 06/14/2025 11:35 AM EDT [facility] pO2, Temp Corrected, Arterial 380 >80 mm Hg 06/14/2025 11:35 AM EDT [facility] Patient Services Specialist ID Vick Dupont 06/14/2025 11:35 AM EDT [facility] Blood Whole blood specimen / Unknown 06/14/2025 11:33 AM EDT 06/14/2025 11:35 AM EDT Phillip Clark MD LAB POINT OF CARE TE ST DOCKED DEVICE UNSOLICITED RESULTS Final Result [facility] [address] [place] [address] * POCT ACT (06/14/2025 11:24 AM EDT) ACT+ (HIGH RANGE) 520 68 - 600 Seconds 06/14/2025 11:37 AM EDT [facility] Patient Services Specialist ID Vick Dupont 06/14/2025 11:37 AM EDT [facility] ACT Device ID [id number] 06/14/2025 11:37 AM EDT [facility] Comment 06/14/2025 11:37 AM EDT [facility] Comment: ACT performed [...] ST DOCKED DEVICE UNSOLICITED RESULTS Final Result [facility] [address] LAB [address] [place] [address] * (ABNORMAL) POCT arterial blood gas gem (06/14/2025 11:03 AM EDT) pH, Arterial 7.40 7.31 - 7.42 06/14/2025 11:04 AM EDT [facility] pCO2, Arterial 41 32 - 45 mm Hg 06/14/2025 11:04 AM EDT [facility] pO2, Arterial 406 >80 mm Hg 06/14/2025 11:04 AM EDT [facility] SO2, Arterial 100(H) 94 - 98 % 06/14/2025 11:04 AM EDT [facility] Base Excess, Arterial 0.5 -2 - 3 mmol/L 06/14/2025 11:04 AM EDT [facility] HCO3, Arterial 25.4 22 - 26 mmol/L 06/14/2025 11:04 AM EDT [facility] Total Hemoglobin, Arterial, Whole Blood 11.9(L) 13.7 - 17.5 g/dL 06/14/2025 11:04 AM EDT [facility] Hematocrit, Arterial 36.0(L) 40 - 51.0 % 06/14/2025 11:04 AM EDT [facility] Sodium, Arterial 133(L) 136 - 145 mmol/L 06/14/2025 11:04 AM EDT [facility] Potassium, Arterial 5.3(H) 3.6 - 4.9 mmol/L 06/14/2025 11:04 AM EDT [facility] Chloride, Whole Blood 103 97 - 107 mmol/L 06/14/2025 11:04 AM EDT [facility] Glucose, Arterial 121(H) 74 - 99 mg/dL 06/14/2025 11:04 AM EDT [facility] Ionized Calcium, Arterial 4.2(L) 4.6 - 5.1 mg/dL 06/14/2025 11:04 AM EDT [facility] Lactate, Arterial 1.0 0.5 - 1.6 mmol/L 06/14/2025 11:04 AM EDT [facility] Body Temperature 37.0 Celsius 06/14/2025 11:04 AM EDT [facility] pH, Temp Corrected, Arterial 7.40 7.31 - 7.42 06/14/2025 11:04 AM EDT [facility] pCO2, Temp Corrected, Arterial 41 32 - 45 mm Hg 06/14/2025 11:04 AM EDT [facility] pO2, Temp Corrected, Arterial 406 >80 mm Hg 06/14/2025 11:04 AM EDT [facility] Patient Services Specialist ID Vick Dupont 06/14/2025 11:04 AM EDT [facility] Blood Whole blood specimen / Unknown 06/14/2025 11:03 AM EDT 06/14/2025 11:04 AM EDT us Phillip Clark MD LAB POINT OF CARE TE ST DOCKED DEVICE UNSOLICITED RESULTS Final Result Performing Organization Address City/State/[facility] Co de Phone Number [facility] [address] [place] [address] * POCT ACT (06/14/2025 10:57 AM EDT) [facility] ACT+ (HIGH RANGE) 569 68 - 600 Seconds 06/14/2025 11:09 AM EDT [facility]ALTHCARE LAB Patient Services Specialist ID Vick Dupont 06/14/2025 11:09 AM EDT [facility] ACT Device ID [id number] 06/14/2025 11:09 AM EDT [facility] Comment 06/14/2025 11:09 AM EDT [facility] Comment: ACT performed [...] ST DOCKED DEVICE UNSOLICITED RESULTS Final Result [facility] [address] LAB [address] [place] [address] * (ABNORMAL) POCT arterial blood gas gem (06/14/2025 10:33 AM EDT) pH, Arterial 7.39 7.31 - 7.42 06/14/2025 10:34 AM EDT [facility] pCO2, Arterial 41 32 - 45 mm Hg 06/14/2025 10:34 AM EDT [facility] pO2, Arterial 349 >80 mm Hg 06/14/2025 10:34 AM EDT [facility] SO2, Arterial 99(H) 94 - 98 % 06/14/2025 10:34 AM EDT [facility] Base Excess, Arterial -0.2 -2 - 3 mmol/L 06/14/2025 10:34 AM EDT [facility] HCO3, Arterial 24.8 22 - 26 mmol/L 06/14/2025 10:34 AM EDT [facility] Total Hemoglobin, Arterial, Whole Blood 10.9(L) 13.7 - 17.5 g/dL 06/14/2025 10:34 AM EDT [facility] Hematocrit, Arterial 33.0(L) 40 - 51.0 % 06/14/2025 10:34 AM EDT [facility] Sodium, Arterial 135(L) 136 - 145 mmol/L 06/14/2025 10:34 AM EDT [facility] Potassium, Arterial 4.8 3.6 - 4.9 mmol/L 06/14/2025 10:34 AM EDT [facility] Chloride, Whole Blood 103 97 - 107 mmol/L 06/14/2025 10:34 AM EDT [facility] Glucose, Arterial 116(H) 74 - 99 mg/dL 06/14/2025 10:34 AM EDT [facility] Ionized Calcium, Arterial 4.1(L) 4.6 - 5.1 mg/dL 06/14/2025 10:34 AM EDT [facility] Lactate, Arterial 1.3 0.5 - 1.6 mmol/L 06/14/2025 10:34 AM EDT [facility] Body Temperature 37.0 Celsius 06/14/2025 10:34 AM EDT [facility] pH, Temp Corrected, Arterial 7.39 7.31 - 7.42 06/14/2025 10:34 AM EDT [facility] pCO2, Temp Corrected, Arterial 41 32 - 45 mm Hg 06/14/2025 10:34 AM EDT [facility] pO2, Temp Corrected, Arterial 349 >80 mm Hg 06/14/2025 10:34 AM EDT [facility] Patient Services Specialist ID Vick Dupont 06/14/2025 10:34 AM EDT [facility] Blood Whole blood specimen / Unknown 06/14/2025 10:33 AM EDT 06/14/2025 10:34 AM EDT Phillip Clark MD LAB POINT OF CARE TE ST DOCKED DEVICE UNSOLICITED RESULTS Final Result Performing Organization Address City/State/[facility] Co de Phone Number [facility] [address] [place] [address] * (ABNORMAL) POCT ACT (06/14/2025 10:26 AM EDT) ACT+ (HIGH RANGE) >600(H) 68 - 600 Seconds 06/14/2025 10:40 AM EDT [facility] Patient Services Specialist ID Vick Dupont 06/14/2025 10:40 AM EDT [facility] ACT Device ID [id number] 06/14/2025 10:40 AM EDT [facility] Comment 06/14/2025 10:40 AM EDT [facility] Comment: ACT performed [...] UNSOLICITED RESULTS Final Result Performing Organization Address City/[facility]/ZIP Co de Phone Number [facility] [address] LAB [address] [place] [address] * Surgical Pathology Exam (06/14/2025 10:18 AM EDT) Case Report Surgical Pathology Case: [id number] Authorizing Provider: Phillip Clark MD Collected: 06/14/2025 1018 Ordering Location: [facility] A OPERATING ROOM Received: 06/14/2025 1413 Pathologist: Beth Lake MD Specimen: Heart, aortic valve leaflets 06/15/2025 11:44 AM EDT [facility] Final Diagnosis A. AORTIC VALVE LEAFLETS, REPLACEMENT: - FIBROSIS AND MYXOID DEGENERATION. 06/15/2025 11:44 AM EDT [facility] at 1144 EDT Clinical Information Severe aortic regurgitation [I35.1] 06/15/2025 11:44 AM EDT [facility] Gross Description A. AORTIC VALVE LEAFLETS Received fresh and placed in formalin labeled aortic valve leaflets are 2 white-montez soft cardiac leaflets ranging in size from 2.5-4.0 cm in greatest dimension. Radio Division Officer sections are submitted in cassette A1. Cold Time: 3h 55m April Santos 06/15/2025 11:44 AM EDT [facility] Tissue Heart structure / Unknown 06/14/2025 10:18 AM EDT 06/14/2025 2:13 PM EDT Comment:Pre-op diagnosis: Severe aortic regurgitation [I35.1] us Phillip Clark MD LAB PATHOLOGY ORDERABLES Fin al Result Performing Organization Address [facility] Co de Phone Number [facility] [address] [place] [address] * (ABNORMAL) POCT arterial blood gas gem (06/14/2025 10:08 AM EDT) pH, Arterial 7.40 7.31 - 7.42 06/14/2025 10:17 AM [facility] pCO2, Arterial 40 32 - 45 mm Hg 06/14/2025 10:17 AM [facility] pO2, Arterial 410 >80 mm Hg 06/14/2025 10:17 AM [facility] SO2, Arterial 100(H) 94 - 98 % 06/14/2025 10:17 AM [facility] Base Excess, Arterial 0.0 -2 - 3 mmol/L 06/14/2025 10:17 AM [facility] HCO3, Arterial 24.8 22 - 26 mmol/L 06/14/2025 10:17 AM [facility] Total Hemoglobin, Arterial, Whole Blood 10.1(L) 13.7 - 17.5 g/dL 06/14/2025 10:17 AM [facility] Hematocrit, Arterial 30.0(L) 40 - 51.0 % 06/14/2025 10:17 AM [facility] Sodium, Arterial 133(L) 136 - 145 mmol/L 06/14/2025 10:17 AM [facility] Potassium, Arterial 4.7 3.6 - 4.9 mmol/L 06/14/2025 10:17 AM [facility] Chloride, Whole Blood 104 97 - 107 mmol/L 06/14/2025 10:17 AM [facility] Glucose, Arterial 122(H) 74 - 99 mg/dL 06/14/2025 10:17 AM [facility] Ionized Calcium, Arterial 3.9(L) 4.6 - 5.1 mg/dL 06/14/2025 10:17 AM [facility] Lactate, Arterial 1.5 0.5 - 1.6 mmol/L 06/14/2025 10:17 AM [facility] Body Temperature 37.0 Celsius 06/14/2025 10:17 AM [facility] pH, Temp Corrected, Arterial 7.40 7.31 - 7.42 06/14/2025 10:17 AM [facility] pCO2, Temp Corrected, Arterial 40 32 - 45 mm Hg 06/14/2025 10:17 AM EDT [facility]ALTH[facility] pO2, Temp Corrected, Arterial 410 >80 mm Hg 06/14/2025 10:17 AM EDT [facility] Patient Services Specialist ID Vick Dupont 06/14/2025 10:17 AM EDT [facility] Blood Whole blood specimen / Unknown 06/14/2025 10:08 AM EDT 06/14/2025 10:17 AM EDT Phillip Clark MD LAB POINT OF CARE TE ST DOCKED DEVICE UNSOLICITED RESULTS Final Result Performing Organization Address City/[facility]/ZIP Co de Phone Number [facility]ALTH[facility]ARE [facility] [address] [place] [address] * (ABNORMAL) POCT ACT (06/14/2025 10:04 AM EDT) ACT+ (HIGH RANGE) >600(H) 68 - 600 Seconds 06/14/2025 10:19 AM EDT [facility]ALTH[facility]ARE LAB Patient Services Specialist ID Vick Dupont 06/14/2025 10:19 AM EDT [facility]ALTH[facility] ACT Device ID [id number] 06/14/2025 10:19 AM EDT [facility] Comment 06/14/2025 10:19 AM EDT [facility] Comment: ACT performed [...] UNSOLICITED RESULTS Final Result Performing Organization Address City/[facility]/ZIP Co de Phone Number [facility]ARE [facility] [address] LAB [address] [place] [address] * POCT ACT (06/14/2025 8:13 AM EDT) ACT+ (HIGH RANGE) 90 68 - 600 Seconds 06/14/2025 8:20 AM EDT [facility] Patient Services Specialist ID Kevin Hernandez 06/14/2025 8:20 AM EDT [facility] ACT Device ID [id number] 06/14/2025 8:20 AM EDT [facility] Comment 06/14/2025 8:20 AM EDT [facility] Comment: ACT performed [...] UNSOLICITED RESULTS Final Result Performing Organization Address City/State/[facility] Co de Phone Number [facility] [address] LAB [address] [place] [address] * (ABNORMAL) POCT arterial blood gas gem (06/14/2025 8:13 AM EDT) pH, Arterial 7.38 7.31 - 7.42 06/14/2025 8:15 AM EDT [facility] pCO2, Arterial 40 32 - 45 mm Hg 06/14/2025 8:15 AM EDT [facility] pO2, Arterial 91 >80 mm Hg 06/14/2025 8:15 AM EDT [facility] SO2, Arterial 99(H) 94 - 98 % 06/14/2025 8:15 AM EDT [facility] Base Excess, Arterial -1.3 -2 - 3 mmol/L 06/14/2025 8:15 AM EDT [facility] HCO3, Arterial 23.7 22 - 26 mmol/L 06/14/2025 8:15 AM EDT [facility] Total Hemoglobin, Arterial, Whole Blood 14.5 13.7 - 17.5 g/dL 06/14/2025 8:15 AM EDT [facility] Hematocrit, Arterial 44.0 40 - 51.0 % 06/14/2025 8:15 AM EDT [facility] Sodium, Arterial 135(L) 136 - 145 mmol/L 06/14/2025 8:15 AM EDT [facility] Potassium, Arterial 4.1 3.6 - 4.9 mmol/L 06/14/2025 8:15 AM EDT [facility] Chloride, Whole Blood 103 97 - 107 mmol/L 06/14/2025 8:15 AM EDT [facility] Glucose, Arterial 95 74 - 99 mg/dL 06/14/2025 8:15 AM EDT [facility] Ionized Calcium, Arterial 4.7 4.6 - 5.1 mg/dL 06/14/2025 8:15 AM EDT [facility] Lactate, Arterial 0.8 0.5 - 1.6 mmol/L 06/14/2025 8:15 AM EDT [facility] Body Temperature 37.0 Celsius 06/14/2025 8:15 AM EDT [facility] pH, Temp Corrected, Arterial 7.38 7.31 - 7.42 06/14/2025 8:15 AM EDT [facility] pCO2, Temp Corrected, Arterial 40 32 - 45 mm Hg 06/14/2025 8:15 AM EDT [facility] pO2, Temp Corrected, Arterial 91 >80 mm Hg 06/14/2025 8:15 AM EDT [facility] Patient Services Specialist ID Lb Coreas 06/14/2025 8:15 AM EDT [facility] Blood Whole blood specimen / Unknown 06/14/2025 8:13 AM EDT 06/14/2025 8:15 AM EDT us Phillip Clark MD LAB POINT OF CARE TE ST DOCKED DEVICE UNSOLICITED RESULTS Final Result [facility] [address] [place] [address] * Type and Screen (06/14/2025 6:27 AM [...] ORDERABL ES Final Result Performing Organization Address City/[facility]/ZIP Co de Phone Number BLOOD BANK [address] [place] [address], * POCT glucose meter (06/14/2025 6:23 AM EDT) [facility] POCT Glucose 93 74 - 99 [...] Comment 06/14/2025 6:24 AM EDT HEALTHCARE LAB Patient Services Specialist ID Kassi Sinha 06/14/2025 6:24 AM EDT HEALTH[facility]ARE LAB Device ID [id number] 06/14/2025 6:24 AM EDT [facility]ALTH[facility]ARE [facility] Specimen Type POC Venous 06/14/2025 6:24 AM EDT [facility] Blood Venous blood specimen / Unknown 06/14/2025 6:23 AM EDT 06/14/2025 6:24 AM EDT Phillip Clark MD LAB POINT OF CARE TE ST DOCKED DEVICE UNSOLICITED RESULTS Final Result [facility] [address] [place] [address] documented in this encounter Visit Diagnoses Diagnosis Aortic valve regurgitation- Primary Aortic valve disorders Severe aortic regurgitation Other secondary hypertension S/P AVR BMI 30.0-30.9,adult High cholesterol Pure hypercholesterolemia Hypertension Unspecified essential hypertension CAD (coronary artery disease) Coronary atherosclerosis of unspecified type of vessel, [place] or graft History of coronary angioplasty with [...] add comment - Comment: dose given by hourly shift manager rn @ [facility] Joseph instructed music writer to hold 0900 dose)2003 (Given - [...] Provider: Lori Molina RN)0829 (Given - Provider: Britatney Dumas, HESHAM)2003 (Given - Provider: Lori Molina [...] documented as of this encounter Care Teams Spice Fumigator Relationship Specialty Start Date End Date Kamran Singh MD [address] [place] [address] PCP - General 02/28/25 documented as of this encounter
--- OUTSIDE RECORDS SUMMARY | 2025-06-14 07:45 | XMS_ITS | Encounter Summary ---
Author Organization [facility] Address [address] [place] [id number] Care Team Providers Care Customer Service Representative Teacher Name Role Phone Kamran Singh MD Primary Care Provider +1- [phone] Reason for Visit * Auth/Cert (Routine) Specialty Diagnoses / Procedures Referred By Nathalia t Referred To Contact Diagnoses Severe aortic regurgitation Severe aortic regurgitation [I35.1] Procedures WA -AORT GRF W/CARD BYP F/AORTIC DISSECTION AORTIC ROOT RECONSTRUCTION Phillip Clark MD [address] [facility] [address] [place] [address] Phone: tel: fax: [facility] [address] [place] [address] Phone: tel: Referral ID Status Reason Start Date Expiration Date Visits Re quested Visits Authorized [id number] 1 1 Encounter Details Date Type Department Care Team (Late st Contact Info) Description 06/14/2025 7:45 AM EDT Anesthesia Event [facility] [address] [place] [address] Jean Claude Staley MD [address] [place] [address] Ricki Zamarripa DO [address] [place] [address] Anesthesia Record Procedure Summary Procedure Name Responsible [...] any time in the past 12 m [facility], were you homeless or living in a group home (including now)? No 06/15/2025 [facility] Utilities Answer Date Recorded In the past 12 months has th e [employer], gas, oil, or water company threatened to [...] supine Prep: ChloraPrep Patient monitoring: heart rate, monitor worker and continuous pulse ox Anesthesia block type: [...] portions of the procedure(s) and immediately available [facility] services the entire duration. See resident note [...] mcg/kg/min) RV: same as baseline Aortic valve: [place] valve replaced by mechanical valve. New valve [...] portions of the procedure(s) and immediately available [facility] services the entire duration. See resident note [...] 05/05/25 88.7 kg (195 lb 8.8 oz) [place] Body Weight: [place] body weight: 66.1 kg (145 lb 11.6 [...] Description 07/07/2025 2:40 PM EST Office Visit [facility] Cardiothoracic [address], [address] [place] [address] Phillip Clark MD [address] [place] [address] documented as of this encounter Procedures Procedure Name Priority Date/Time Associated Diagnosis Comments PB POINT OF CARE IMAGING PLACEHOLDER Routine 06/14/2025 2:16 PM EDT PB ANESTHESIA NON-TIMED PROCEDURE PLACEHOLDER Routine 06/14/2025 2:15 PM EDT PB POINT OF CARE IMAGING PLACEHOLDER Routine 06/14/2025 8:32 AM EDT WA INSERT/PLACE FLOW DIRECT CATH Routine 06/14/2025 8:32 AM EDT ANESTHESIA ULTRASOUND GUIDED Routine 06/14/2025 8:32 AM EDT PB ANESTHESIA NON-TIMED PROCEDURE PLACEHOLDER Routine 06/14/2025 8:32 AM EDT WA AN CENTRAL LINE DOUBLE LUMEN Routine 06/14/2025 8:32 AM EDT PB ANESTHESIA PLACEHOLDER Routine 06/14/2025 8:16 AM EDT WA AN ELECTIVE ENDOTRACHEAL AIRWAY Routine 06/14/2025 8:16 [...] supine Prep: ChloraPrep Patient monitoring: heart rate, monitor worker and continuous pulse ox Anesthesia block type: [...] mcg/kg/min) RV: same as baseline Aortic valve: [place] valve replaced by mechanical valve. New valve is well seated with appropriate movement of valve leaflets. No perivalvular leak. Mean PG of 2mm Hg and AT 55 msec. Aorta: intact after decannulation. Findings were communicated with surgeon. us Jean Claude Staley MD ANESTHESIA ORDERABLES Edited Res ult - Final * WA AN CENTRAL LINE DOUBLE LUMEN, PB ANESTHESIA NON-TIMED PROCEDURE PLACEHOLDER, ANESTHESIA ULTRASOUND GUIDED, WA INSERT/PLACE FLOW DIRECT CATH, PB POINT OF [...] MD ANESTHESIA ORDERABLES Final Resu lt * WA AN ELECTIVE ENDOTRACHEAL AIRWAY, PB ANESTHESIA PLACEHOLDER [...] documented as of this encounter Care Teams Customer Service Representative Teacher Relationship Specialty Start Date End Date Kamran Singh MD [address] [place] [address] PCP - General 02/28/25 documented as of this encounter
--- OUTSIDE RECORDS SUMMARY | 2025-06-14 07:45 | XMS_ITS | Encounter Summary ---
Author Organization [facility] Address [address] [place] [id number] Care Team Providers Care Dairy Chemist Name Role Phone Kamran Singh MD Primary Care Provider [phone] Reason for Visit * Auth/Cert (Routine) Specialty Diagnoses / Procedures Referred By Nathalia t Referred To Contact Diagnoses Severe aortic regurgitation Severe aortic regurgitation [I35.1] Procedures ND -AORT GRF W/CARD BYP F/AORTIC DISSECTION AORTIC ROOT RECONSTRUCTION Phillip Clark MD [address] [address] Phone: tel: fax: [facility] [address] [place] [address] Phone: tel: Referral ID Status Reason Start Date Expiration Date Visits Re quested Visits Authorized [id number] 1 1 Encounter Details Date Type Department Care Team (Late st Contact Info) Description 06/14/2025 7:45 AM EDT - 06/14/2025 8:15 PM EDT Surgery [facility] [address] [place] [id number] Phillip Clark MD [address] [facility] [address] [place] [address] Aortic valve replacement [75623 (CPT )] Surgery Details Date/Time Status Location [...] were you homeless or living in a usp (including now)? No 06/15/2025 [facility] Utilities Answer Date Recorded In the past 12 months has th e [employer] gas, oil, or water [employer] threatened to shut off services in your [...] a referral and prefers to attend at [facility]. Witt will contact Mr. Forrest to discuss and [...] 2. Eligibility: Heart valve surgery 3. Exceptions/exclusions: [facility] Cardiac Rehab Exclusions: None 4. Referral: [facility] Cardiac Rehab Referral: Patient agreed with referral to the cardiac rehabilitation program at [facility] in [place], [place], phone number [phone]. 5. Information sent: Information Sent: Appropriate information will be sent to the receiving cardiac rehabilitation program.: * Progress Notes - Oumou Berger - 06/20/2025 10:15 AM EDT Case Management Discharge Note Bradley Forrest 69 y.o. male CSN: [id number] Admission: 06/14/2025 5:18 AM Primary Problem: Aortic valve regurgitation Primary Sex Offender Treatment Professional: Primary Caregiver: Self Assistance Available at Discharge: Current Outpatient/Agency/Support Group: DME Availability of Care Givers (#Hours): Other (comment) (As needed) Family/Sex Offender Treatment Professional(s) Willingness Assessed to care for patient at home: Yes Family/Sex Offender Treatment Professional(s) Readiness Assessed to care for patient at [...] Recieved By: patient Follow-up: Jolynn Pollard APRN [facility] Cardiology [address] [place] [address] [address] [id number] Go on 08/22/2025 Your cardiology appointment is on August 22 at 11am Please arrive 15 minutes early and bring UPDATED medication list. [address] [facility] [phone] Go on 06/22/2025 Your first appointment for your Warfarin/Coumadin management is this FridayJune 22 at 11:30am. Please report to [facility] front admission desk and tell them you are checking in to the Pharmacy Anticoagulation Clinic. The suggestion clerk will call the pharmacist who will meet you in the lobby and escort you to the clinic. Please bring all medications you are taking and your insurance card. If you have any issues please call [phone] ext: [phone] and then choose option 2. Discharge Transportation: [...] to transport. Covering RNCM ordered rollator from [facility] to be delivered to [...] name and Address: Kamran Singh MD [address] [facility], [place] [address] Referring provider name and address: No referring [...] Your Medications These medications were sent to [facility] [place], [place] - [address] [facility] [address] acetaminophen 325 MG tablet clopidogrel 75 MG [...] Center 07/07/2025 2:40 PM Phillip Clark MD [facility] Test Results Pending At Discharge N/A [...] Plan Anticoagulation Plan Warfarin Pharmacist Managed?: No [facility] Warfarin Dosing Protocol Followed?: No Reason for Protocol Departure: CT Surgery Bridging Agent in Conjunction With Warfarin? : No INR Monitoring Frequency: Monitor INR daily Patient Education : Complete and documented Warfarin dosing and adjustment per CT surgery provider. Transitions of Care Outpatient provider managing warfarin after [facility] discharge: TBD - possibly clinic Recommended date for outpatient INR assessment: TBD - of note, enoxparin copay $0 for 7 day supply Will continue to follow patient's clinical progress daily. Frank BernalD, [facility] Clinical Pharmacist - Cardiothoracic Surgery Available via [employer] * Progress Notes - Phillip Clark MD [...] Ongoing, Progressing Intervention: Promote Activity and Functional [place] Flowsheets (Taken 06/19/20251704 by Vicente Hussein RN) Activity Assistance Provided: assistance, stand-by Adaptive Equipment Use: use encouraged Self-Care Promotion: independence encouraged Problem: Self-Care Deficit Goal: Improved Ability to Complete Activities of Daily Living Outcome: Ongoing, Progressing Intervention: Promote Activity and Functional [place] Flowsheets (Taken 06/19/20251704 by Vicente Hussein RN) [...] RN Outcome: Ongoing, Progressing 06/19/20251704 by Vicente Hussien RN Outcome: Ongoing, Progressing Intervention: Protect and [...] Ongoing, Progressing Intervention: Promote Activity and Functional [place] Flowsheets (Taken 06/19/20251704) Activity Assistance Provided: assistance, [...] Ongoing, Progressing Intervention: Promote Activity and Functional [place] Flowsheets (Taken 06/19/2025 1705) Activity Assistance Provided: [...] Plan Anticoagulation Plan Warfarin Pharmacist Managed?: No [facility] Warfarin Dosing Protocol Followed?: No Reason for Protocol Departure: CT Surgery Bridging Agent in Conjunction With Warfarin? : No Goal PTT/anti-Xa: 2.5-3.5 INR Monitoring Frequency: Monitor INR daily Patient Education : Complete and documented Warfarin dosing and adjustment per CT surgery provider. Transitions of Care Outpatient provider managing warfarin after [facility] discharge: TBD - possibly clinic Recommended [...] rhythm - continue warfarin CT surgery pager [phone] [1] acetaminophen, 650 mg, Oral, q4h DEMETRIUS [...] Ongoing, Progressing Intervention: Promote Activity and Functional [place] Flowsheets (Taken 06/19/2025344) Activity Assistance Provided: assistance, stand-by Self-Care Promotion: independence encouraged Problem: Self-Care Deficit Goal: Improved Ability to Complete Activities of Daily Living Outcome: Ongoing, Progressing Intervention: Promote Activity and Functional [place] Flowsheets (Taken 06/19/2025344) Activity Assistance Provided: assistance, [...] from the original note were not included. [id number] Tratamiento para contracciones ventriculares prematuras (CVP) Las [...] Confusi??n. Last Reviewed Date: 2024 00:00:00 ?? [id number] [employer]. All rights reserved. This information is not intended as a substitute for professional medical care. Always follow your healthcare professional's instructions. * Gabriel Singh - Brittaney Dumas RN - 06/18/2025 6:29 PM EDT Images from the original note were not included. [id number] C??mo comprender las contracciones ventriculares prematuras (CVP) [...] se??al activa partes cercanas del coraz??n contraer. [place] permite que el coraz??n se comprima de [...] card??acos anteriores, el coraz??n expulsar?? muypoca mushtaq. [place] provoca aria sensaci??n de pausa entre latidos. El siguiente latido card??aco suele ser m??s bea, ya que la pausa lo permite que el coraz??n descanse y se llene de mushtaq. [place] lleva a aria sensaci??n de latido card??aco [...] port??til jameson unos d??as o incluso semanas. [place] puede ayudar a diagnosticar los CVP que [...] im??genes del coraz??n. ? An??lisis de mushtaq. [place] se hace para comprobar los electrolitos y concentraciones tiroideas. Last Reviewed Date: 2024 00:00:00 ?? [id number] [employer]. All rights reserved. This information is not intended as a substitute for professional medical care. Always follow your healthcare professional's instructions. * Gabriel OnFHALONZO - Brittaney Dumas RN - 06/18/2025 6:29 PM EDT Images from the original note were not included. [id number] Tratamiento para contracciones ventriculares prematuras (CVP) Las [...] Confusi??n. Last Reviewed Date: 2024 00:00:00 ?? 3210-0834 [employer]. All rights reserved. This information is not intended as a substitute for professional medical care. Always follow your healthcare professional's instructions. * Gabriel Singh - Brittaney Dumas RN - 06/18/2025 6:29 PM EDT Images from the original note were not included. [id number] C??mo comprender las contracciones ventriculares prematuras (CVP) [...] se??al activa partes cercanas del coraz??n contraer. [place] permite que el coraz??n se comprima de [...] card??acos anteriores, el coraz??n expulsar?? muypoca mushtaq. [place] provoca aria sensaci??n de pausa entre latidos. El siguiente latido card??aco suele ser m??s bea, ya que la pausa lo permite que el coraz??n descanse y se llene de mushtaq. [place] lleva a aria sensaci??n de latido card??aco [...] ?extra?. ? Mareos y nely desmayos. ? Aira sensaci??n de pulsos en el chana. Los [...] port??til jameson unos d??as o incluso semanas. [place] puede ayudar a diagnosticar los CVP que no ocurren con frecuencia. Hay varios tipos de monitores card??acos: ? Monitor Holter. Wen monitor es un caja zachariah??a con los alambres conectados a las almohadillas del pecho. La lleva jameson 1 o 2 d??as. Es proporciona un registro arjat de la actividad card??megan. Aria vez realizada [...] im??genes del coraz??n. ? An??lisis de mushtaq. [place] se hace para comprobar los electrolitos y concentraciones tiroideas. Last Reviewed Date: 2024 00:00:00 ?? 2975-7040 [employer]. All rights reserved. This information is not intended as a substitute for professional medical care. Always follow your healthcare professional's instructions. * Gabriel Singh - Brittaney Dumas RN - 06/18/2025 6:28 PM EDT Images from the original note were not included. 15122 Treatment for Premature Ventricular Contractions (PVCs) Premature [...] confusion Last Reviewed Date: 2024 00:00:00 ?? 1662-8501 [employer]. All rights reserved. This information is not intended as a substitute for professional medical care. Always follow your healthcare professional's instructions. * Gabriel GonsalezTRISTAN Dumas Brittaney Darin, RN - 06/18/2025 6:28 PM EDT Images from the original note were not included. 48622 Understanding Premature Ventricular Contractions (PVCs) Premature ventricular [...] to 2 weeks. ? Insertable (or implantable) surveillance system monitor. This small device is implanted under [...] levels. Last Reviewed Date: 2024 00:00:00 ?? 1018-6021 [employer]. All rights reserved. This information is not [...] Plan Anticoagulation Plan Warfarin Pharmacist Managed?: No [facility] Warfarin Dosing Protocol Followed?: No Bridging Agent in Conjunction With Warfarin? : Yes Ordered Agents: Enoxaparin Bridging Agent Dose: 70mg BID INR Monitoring Frequency: Monitor INR daily Patient Education : Complete and documented Warfarin dosing and adjustment per CT surgery provider. Transitions of Care Outpatient provider managing warfarin after [facility] discharge: TBD - possibly clinic Recommended [...] Ongoing, Progressing Intervention: Promote Activity and Functional [place] Flowsheets (Taken 06/18/202558) Activity Assistance Provided: assistance, 1 person Self-Care Promotion: independence encouraged Problem: Self-Care Deficit Goal: Improved Ability to Complete Activities of Daily Living Outcome: Ongoing, Progressing Intervention: Promote Activity and Functional [place] Flowsheets (Taken 06/18/202558) Activity Assistance Provided: assistance, [...] from the original note were not included. [id number] Warfarin IMPORTANT WARNING: Warfarin may cause severe [...] doctor or pharmacist will give you the dog hair clipper's patient information sheet (Medication Guide) when you begin treatment with warfarin and each time you refill your prescription. Read the information carefully and ask your doctor or pharmacist if you have any questions. You can also visit the Food and Drug Administration (FDA) website (https://www.fda.gov/downloads/Drugs/DrugSafety/bef773405.pdf) or the dog hair clipper's website to obtain the Medication Guide. Talk [...] amounts of vitamin K-containing food on a trmq-gc-rvdi basis. Do not eat large amounts of [...] of all of the prescription and nonprescription (thfs-jkc-gksectz) medicines, vitamins, minerals, and dietary supplements you [...] or pharmacist about specific clinical use. The [place] [employer] represents that the information provided hereunder was formulated with a reasonable standard of care, and in conformity with professional standards in the field. The [place] [employer] makes no representations or warranties, express or implied, including, but not limited to, any implied warranty of merchantability and/or fitness for a particular purpose, with respect to such information and specifically disclaims all such warranties. Users are advised that decisions regarding drug therapy are complex medical decisions requiring the independent, informed decision of an appropriate health healthcare science specialist, and the information is provided for informational purposes only. The entire monograph for a drug should be reviewed for a thorough understanding of the drug's actions, uses and side effects. The [place] [employer] does not endorse or recommend the use of any drug.The information is not a substitute for medical care. AHFS?? Patient Medication Information?. ?? Copyright, 2023. The [place] [employer] Pharmacists??, [address], [address], [place], [place]. All Rights Reserved. Duplication for commercial use must be authorized by [facility]. Selected Revisions: February 13, 2017. AHFS?? Patient Medication Information?. ?? Copyright, 2024 * Gabriel Singh - Sydni Munson RN - 06/17/2025 12:42 PM EDT Images from the original note were not included. 69802 Recovery From Heart Surgery: The First Few [...] stop Last Reviewed Date: 2024 00:00:00 ?? 7924-6645 [employer]. All rights reserved. This information is not [...] arms away from your body. * [facility] - Sydni Munson RN - 06/17/2025 12:42 PM EDT Images from the original note were not included. 19041 After Heart Valve Surgery For the first [...] headache Last Reviewed Date: 2023 00:00:00 ?? 3269-6741 [employer]. All rights reserved. This information is not intended as a substitute for professional medical care. Always follow your healthcare professional's instructions. * Discharge Instr - Other Orders - Sydni Munson RN - 06/17/2025 12:39 PM EDT Please arrive 30 minutes early for your appointment with Dr. Clark Prior to your appointment, go to the radiology department on the 1st floor of the [facility] near [facility] for [...] your incisions. Do NOT lift, push, or lug breaker and wire puller 5 pounds for six weeks. Do [...] Sydni Munson CT Surgery Nurse Navigator at [phone] Friday through Friday 7am- 3:30pm [facility] [phone] after 3:30 pm, weekends and holidays - ask for the CT surgeon regional production manager. * Progress Notes - Brooke Valdez PTA - 06/17/2025 11:58 AM EDT Physical Therapy Treatment Patient Name: Bradley Forrest Today's Date: 06/17/2025 Total Treatment Time: 39 min PT Discharge Recommendations: Home with assistance Equipment Recommended: Rollator Subjective The patient states, I am doing okay. Participants in Care Family/Caregiver Present: Yes Family/Caregiver: Spouse, Other (Specify) (sister and brother) Claims Adjudicator: Not Applicable Presentation Oxygen: None (Room air) [...] sequencing. Bed Mobility Exam: Rolling/Turning Level of [place]: Minimum assist (75% patient effort) Physical/Nonphysical Assist: Verbal Cues, Set-up required Bed Mobility Exam: Scooting/Bridging Level of [place]: Minimum assist (75% patient's effort) (to scoot to edge of bed with cues to adhere to sternal precautions) Physical/Nonphysical Assist: Verbal Cues, Set-up required Bed Mobility Exam: Supine to Sit Level of [place]: Minimum assist (75% patient's effort) Physical/Nonphysical Assist: Verbal Cues, Set-up required, Additional assist utilized for safety Bed Mobility Exam: Sit to Supine Level of [place]: Minimum assist (75% patient's effort) Physical/Nonphysical Assist: Verbal Cues, Set-up required, Additional assist utilized for safety Transfers Transfer Intervention: Verbal cues provided for correct bilateral hand and foot placement during sit to stand transfers. Transfer Interventions: The patient stood at the sink for hygiene approximately 8-10 minutes with CGA of 1 person. Transfer Exam: Sit to stand Level of [place]: Contact guard Physical/Nonphysical Assist: Verbal Cues, Set-up required Assistive Device: Rollator Transfer Exam: Stand to Sit Level of [place]: Contact guard Physical/Nonphysical Assist: Verbal Cues, Set-up [...] No assist required prior to admission (Working manager games prior to admission) Level of Mobility Ambulatory- community Mobility [place] Independent gait without device History of Falls [...] Visitors Present Yes Spouse (sister and brother) Claims Adjudicator (if applicable) OBJECTIVE PAIN Pain Score (0-10): [...] for toileting and grooming tasks. Level of [place] Adaptive Equipment Utilized Comments Feeding Grooming SBA Standing sinkside stood times 8 minutes in bathroom. Bathing Upper Body Dressing Lower Body Dressing Sock Level of Assistance: Moderate assistance, Minimal verbal cues Toileting SBA Toilet IADLs Health Management Community Re-Entry BALANCE Postural Appearance INTERVENTIONS Level of [place] Balance Support Comments Static Sit Standby assist [...] weight shifting to promote safety. Level of [place] Physical/Non-physical Assist Adaptive Equipment Utilized Rolling/ Turning [...] Plan Anticoagulation Plan Warfarin Pharmacist Managed?: No [facility] Warfarin Dosing Protocol Followed?: No Bridging Agent in Conjunction With Warfarin? : Yes Ordered Agents: Enoxaparin Bridging Agent Dose: 70mg BID INR Monitoring Frequency: Monitor INR daily Patient Education : Complete and documented Warfarin dosing and adjustment per CT surgery provider. Transitions of Care Outpatient provider managing warfarin after [facility] discharge: TBD - possibly [place] clinic Recommended date for outpatient INR assessment: TBD - of note, enoxparin copay $0 for 7 day supply Will continue to follow patient's clinical progress daily. Maria Esther Kent PharmD, ARLEEN, BCCCP, [facility] Critical Care Pharmacist - Cardiothoracic Surgery Contact via secure chat * Gabriel Singh - Maria Esther Kent PharmD - 06/17/2025 9:21 AM EDT Images from the original note were not included. Your Health Checklist: Taking Warfarin Safely - Video Follow this checklist to properly and safely take warfarin. To view the video go to this web address: https://[email or web address].Drifty/[email or web address] Or, scan this QR code with your [...] the video go to this web address: https://[email or web address].Drifty/[email or web address] Or, scan this QR code with your smart phone ?? [employer] * Maria Esther Houston PharmD - 06/17/2025 9:21 AM EDT Images from the original note were not included. Warfarin: Your INR Goal - Video Understand what the INR test measures, and what your healthy INR level should be. To view the video go to this web address: https://[email or web address].Drifty/[email or web address] Or, scan this QR code with your [...] the video go to this web address: https://bit.ly/7TR3Evk Or, scan this QR code with your [...] Certain other vegetables and fruits, including asparagus, [place] sprouts, and kiwifruit ? Certain soy products, such as natto (a traditional [place] dish of fermented soybeans) Some vegetable oils [...] reduced-fat cheese, served with a whole grain Bolivian muffin ? A grilled chicken sandwich on whole grain bread with raw spinach*, tomato slices, and mustard ? Oven-roasted fish served with steamed broccoli* and medley of whole grain pasta, carrots, onions,and mushrooms * Foods higher in vitamin K Last Reviewed Date: 2025 00:00:00 ?? 2506-8951 [employer]. All rights reserved. This information is not [...] smart phone ?? [employer] * Marai Esther Houston PharmD - 06/17/2025 9:21 AM EDT Images from the original note were not included. Warfarin and Food - Video Learn which foods can affect how your warfarin therapy is working. To view the video go to this web address: https://bit.ly/1R9CJwM Or, scan this QR code with your smart phone ?? [employer] * Maria Esther Houston PharmD - 06/17/2025 9:21 AM EDT Images from the original note were not included. [id number] Warfarin IMPORTANT WARNING: Warfarin may cause severe [...] doctor or pharmacist will give you the dog hair clipper's patient information sheet (Medication Guide) when you begin treatment with warfarin and each time you refill your prescription. Read the information carefully and ask your doctor or pharmacist if you have any questions. You can also visit the Food and Drug Administration (FDA) website (https://www.fda.gov/downloads/Drugs/DrugSafety/oyf691489.pdf) or the dog hair clipper's website to obtain the Medication Guide. Talk [...] amounts of vitamin K-containing food on a buwn-zn-srrc basis. Do not eat large amounts of [...] be awakened, immediately call emergency services at 677. Symptoms of overdose may include the following: [...] of all of the prescription and nonprescription (rihq-hmh-ayjcspx) medicines, vitamins, minerals, and dietary supplements you [...] or pharmacist about specific clinical use. The [place] [employer]. represents that the information provided hereunder was formulated with a reasonable standard of care, and in conformity with professional standards in the field. The [place] [employer]. makes no representations or warranties, express or implied, including, but not limited to, any implied warranty of merchantability and/or fitness for a particular purpose, with respect to such information and specifically disclaims all such warranties. Users are advised that decisions regarding drug therapy are complex medical decisions requiring the independent, informed decision of an appropriate health healthcare science specialist, and the information is provided for informational purposes only. The entire monograph for a drug should be reviewed for a thorough understanding of the drug's actions, uses and side effects. The [place] [employer] does not endorse or recommend the use of any drug.The information is not a substitute for medical care. AHFS?? Patient Medication Information?. ?? Copyright, 2023. The [place] [employer] Pharmacists??, [address], [address], [place], [place]. All Rights Reserved. Duplication for commercial use must be authorized by [facility]. Selected Revisions: February 13, 2017. AHFS?? [...] Ongoing, Progressing Intervention: Promote Activity and Functional [place] Flowsheets (Taken 06/17/2025108) Activity Assistance Provided: assistance, 1 person Self-Care Promotion: independence encouraged Problem: Self-Care Deficit Goal: Improved Ability to Complete Activities of Daily Living Outcome: Ongoing, Progressing Intervention: Promote Activity and Functional [place] Flowsheets (Taken 06/17/2025108) Activity Assistance Provided: assistance, [...] Note Bradley Forrest 69 y.o. male CSN: [id number] Admission: 06/14/2025 5:18 AM Primary Problem: Severe [...] Problem(s): Weaning from mechanically assisted ventilation initiated ([facility]) (Lamadslc28/20/2025) Arrived intubated and sedated post-op - fast [...] 06/14/25 Brachial 06/14/25 0808 Brachial 2 GCS: [place] Coma Scale Score: 15 Review of Systems [...] post median sternotomy. Interval removal of the [place]-Ganzcatheter, right IJ sheath remains in place with tip in the mid to distal SVC. No pneumothorax or pleural effusions. Ongoing interstitial edema. 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 Claims Adjudicator (if applicable) OBJECTIVE & INTERVENTIONS PAIN Pain [...] ACTIVITY Treatment Minutes 24 TRANSFERS Level of [place] Physical/Non- physical Assist Adaptive Equipment Utilized Sit to Stand Contact guard Verbal Cues, Additional assist utilized for safety, 1 person + 1 person to manage equipment (verbal cuing for sternal precautions) Stand to sit Contact guard Verbal Cues, 1 person + 1 person to manage equipment Interventions BALANCE Postural Appearance Posture: Rounded shoulders Level of [place] Balance Support Interventions Static Sit Standby assist Feet supported Dynamic Sit Contact guard Feet supported Static Stand Standby assist Right upper extremity support, Left upper extremity support Pt with mild dizziness when coming to stand from sitting which subsided with roughly 30 seconds of static standing Dynamic Stand Standby assist Right upper extremity support, Left upper extremity support AMBULATION Level of [place] Distance Adaptive Equipment Utilized Ambulation Standby assist, [...] Plan Anticoagulation Plan Warfarin Pharmacist Managed?: No [facility] Warfarin Dosing Protocol Followed?: No Reason [...] clinical progress daily. Frank BrothersD PGY-2 Cardiology Monomer Recovery Supervisor Available via Secure Chat * Progress Notes [...] Ongoing, Progressing Intervention: Promote Activity and Functional [place] Flowsheets Taken 06/15/20251699 by Bony Thomas RN [...] Ongoing, Progressing Intervention: Promote Activity and Functional [place] Flowsheets Taken 06/15/2025 1700 by Bony Thomas RN Activity Assistance Provided: assistance, stand-by Taken 06/14/20252154 by Svetlana Reilly RN Self-Care Promotion: independence encouraged * Consults - Nat Singletary RD - 06/15/2025 2:23 PM EDTAssociated Order(s): IP CONSULT TO NUTRITION SERVICES Adult Nutrition Evaluation Note Bradley Forrest 69 y.o. male CSN: [id number] Room/Bed 234/234A Nutrition evaluation type: assessment Reason [...] Risk Score: 38 Most Recent BM Date: (LAUNDRY AIDE) GI Symptoms: Nausea, Vomiting Edema: Generalized Allergies: [...] 30.07 Weight Evaluation: Obese-Class 1 (BMI 30-34.9) Irma Body Weight (kg): 67.3 Percent Irma Body Weight: 130 Adjusted Body Weight (kg): 72.4 Estimated Needs: Kcal/ K-28 Kcal Provided: Metabolic Cart Study Results: Current Nutrition Intake: Diet Order: Adult Diet Diet Texture: Clear liquid Adult Carbohydrate Restriction: Consistent CHO 2 ([id number] Venkat, 80 g/meal) Fat Restriction: Cardiac Percent Meals Eaten (%): establishing Diet Experience and Nutrition History: Diet Education Provided: Will monitor Pertinent home medications: Faith needs: Nutrition Focused Physical Exam: Physical exam performed on (date): 06/15 [place] (muscles): None Clavicle (muscle): None Shoulder (muscle): None Orbital (fat): None Triceps (fat): None Energy Intake: reported adequate LAUNDRY AIDE Weight Loss: denies Assessment of Malnutrition: Malnutrition [...] Note Bradley Forrest 69 y.o. male CSN: [id number] Admission: 06/14/2025 5:18 AM Primary Problem: Severe aortic regurgitation Advertising Sales Agent reviewed chart and spoke with the patient at bedside to complete this Initial Case Management Assessment. PCP: Kamran Singh MD Emergency Contact: Extended Emergency Contact Information Primary Emergency Contact: Naheed Forrest Address: [address] [place] [address] [facility] [place] Relation: Spouse Insurance: Primary Visit Coverage Payer Plan Sponsor Code Group Number Group Name [facility] [id number] Primary Visit Coverage Subscriber Subscriber ID Subscriber Name Subscriber N Subscriber Address [id number] Bradley Forrest [id number] [id number] Secondary Visit Coverage Payer Plan Sponsor Code Group Number Group Name MEDICARE MEDICARE A & B Secondary Visit Coverage Subscriber Subscriber ID Subscriber Name Subscriber N Subscriber Address [id number] Bradley Forrest [id number] Patient information: Primary Caregiver: Self Support System: Immediate family Daily Living Activities: Functional Status: Independent Living Arrangements: Spouse/Significant other Type of Residence: Private residence, Single Level [address] [place] [address] Current DME: Equipment Currently Used at Home: [...] DME Provider: n/a Living Will/Advance Directive/Power of Coke Oven Mason /Guardian: Unable to assess: No Have you [...] prior HH/O2/HD/Abx. PCP is Kamran Singh. Has [employer] insurance and uses [facility]. Family to transport and assist as [...] Plan Anticoagulation Plan Warfarin Pharmacist Managed?: No [facility] Warfarin Dosing Protocol Followed?: No Reason for Protocol Departure: CT Surgery Bridging Agent in Conjunction With Warfarin? : No INR Monitoring Frequency: Monitor INR daily Patient Education : Incomplete Warfarin dosing and adjustment per CT surgery provider. Transitions of Care Outpatient provider managing warfarin after [facility] discharge: TBD Recommended date for outpatient INR assessment: TBD Will continue to follow patient's clinical progress daily. yS Fernández PharmD PGY-2 Cardiology Monomer Recovery Supervisor Available via Secure Chat * Assessment & [...] Weaning from mechanically assisted ventilation initiated (CMS/HCC) (Cnxodysp24/20/2025) Arrived intubated and sedated post-op - fast [...] Weaning from mechanically assisted ventilation initiated (CMS/HCC) (Tgxzgpjg11/20/2025) Arrived intubated and sedated post-op - fast [...] 06/15/2025 Weaning from mechanically assisted ventilation initiated ([facility]) 06/14/2025 Diabetes 05/05/2025 Benign prostatic hyperplasia 05/05/2025 CAD (coronary artery disease) 04/14/2025 History of coronary angioplasty with insertion of stent 04/14/2025 Ascending aortic aneurysm ([facility]) 04/14/2025 Aortic valve regurgitation 04/14/2025 [...] No assist required prior to admission (Working manager games prior to admission) Level of Mobility: Ambulatory- community Mobility [place]: Independent gait without device History of Falls: [...] Mobility Exam: Sit to Supine Level of [place]: Maximum assist (25% patient's effort) Physical/Nonphysical Assist: Verbal Cues, Maximal cues, Additional assist utilized for safety Transfers Transfer Exam: Sit to stand Level of [place]: Moderate assist (50% patient's effort) Physical/Nonphysical Assist: Verbal Cues, Moderate cues, Additional assist utilized for safety Assistive Device: Rollator Transfer Exam: Stand to Sit Level of [place]: Minimum assist (75% patient's effort) Physical/Nonphysical Assist: [...] Standardized Assessments: [facility] 6-Clicks Mobility Assessment [facility] 6-Clicks Mobility Assessment Difficulty patient has turning [...] A little [facility] 6-Clicks Mobility Assessment Total : 16 No [...] 06/15/2025 Weaning from mechanically assisted ventilation initiated ([facility]) 06/14/2025 Diabetes 05/05/2025 Benign prostatic hyperplasia 05/05/2025 CAD (coronary artery disease) 04/14/2025 History of coronary angioplasty with insertion of stent 04/14/2025 Ascending aortic aneurysm ([facility]) 04/14/2025 Aortic valve regurgitation 04/14/2025 [...] No assist required prior to admission (Working manager games prior to admission) Level of Mobility: Ambulatory- community Mobility [place]: Independent gait without device History of Falls: [...] Mobility Exam: Sit to Supine Level of [place]: Maximum assist (25% patient's effort) Physical/Nonphysical Assist: Verbal Cues, Maximal cues, Additional assist utilized for safety Transfers Transfer Exam: Sit to stand Level of [place]: Moderate assist (50% patient's effort) Physical/Nonphysical Assist: Verbal Cues, Moderate cues, Additional assist utilized for safety Assistive Device: Rollator Transfer Exam: Stand to Sit Level of [place]: Minimum assist (75% patient's effort) Physical/Nonphysical Assist: [...] Right 06/14/25 0832 Internal jugular 1 GCS: [place] Coma Scale Score: 15 Review of Systems [...] of NG tube. Right internal jugular approach [place]-Shira catheter and mediastinal drain in unchanged position. [...] Problem(s): Weaning from mechanically assisted ventilation initiated ([facility]) (Lddixvcs38/20/2025) Arrived intubated and sedated post-op - fast [...] for analgesia prior to leaving the OR. [facility] services were consulted for management of [...] pressure support 8/ Edited by: Balta Washington, COAT EXAMINER, DNP at 06/14/2025 2253 Lines/Drains/Tubes: Patient Lines/Drains/Airways [...] Ongoing, Progressing Intervention: Promote Activity and Functional [place] Flowsheets (Taken 06/14/20252154) Activity Assistance Provided: assistance, [...] Weaning from mechanically assisted ventilation initiated (CMS/HCC) (Wstgfqjl14/20/2025) Arrived intubated and sedated post-op - fast [...] for analgesia prior to leaving the OR. [facility] services were consulted for management of [...] 06/14/25 1327 Mediastinal less than 1 NG/OG [place] Sump Orogastric 18 Fr Center mouth 06/14/25 [...] 2 tablets by mouth every morning. Under [place] law, monthly prescriptions (30 days) can be refilled at 25 days and three-month prescriptions (90 days) at 80 days. Please contact the insurance company with questions if refills are denied. (Patient taking differently: Take 2 tablets by mouth every 4 hours as needed. Under [place] law, monthly prescriptions (30 days) can be [...] Saint Jose mechanical prosthesis. Date: 06/14/25 Location: [place] Name: Bradley Forrest, : 1955, Diagnoses: Pre-op Diagnosis Severe aortic regurgitation Post-op Diagnosis Severe aortic regurgitation Coronary artery disease due to calcified coronary lesion History of coronary angioplasty with insertion of stent Left ventricular enlargement Procedure(s): Median sternotomy, aortic valve replacement using a 25 mm [place] mechanical prosthesis. Attending Surgeon(s): * Phillip Clark - Primary Trouble Lineman(s): * Turner Pablo MD - Fellow Anesthesia: General ASA: IV Blood Administration: Blood Product Administration History None Estimated Blood Loss: 150 mL Drains: Chest Tube Mediastinal 36 Fr (Active) Function -20 cm H2O 06/14/25 1600 Chest Tube Air Leak No 06/14/25 1600 Patency Intervention Tip/tilt 06/14/25 1600 Drainage Description Dark red 06/14/25 1600 NG/OG [place] Sump Orogastric 18 Fr Center mouth (Active) Urethral Catheter Temperature probe 16 Fr. (Active) Implants Type Name Action Serial No. GRAFT PTCH [id number] FELT - [id number] Implanted VALVE ATRIAL 25MM ROTATABL CUF STD PTFE - [id number] - [id number] Implanted [id number] Specimen: Specimens ID Source Frozen? 1 Heart [...] stenting of his coronaries. In addition his special education teachers, Jd Duvall, had done an echocardiogram which [...] was induced, monitoring lines were placed, a [place]-Shira catheter was floated into position and a [...] and pericardial stay sutures were placed. Full-dose heparinwas requested to be administered by our anesthesia colleagues, they verbally confirmed that heparinhad been administered. Ascending aorta was palpated and [...] Prolene and a tack seal. One 36 [place] chest tube was placed. Chest tubes and pacing wires were secured to the anterior abdominal wall. The sternum was reapproximated with #7 [id number] stainless steel wires, the fasciawas closed with [...] 2 tablets by mouth every morning. Under [place] law, monthly prescriptions (30 days) can be refilled at 25 days and three-month prescriptions (90 days) at 80 days. Please contact the insurance company with questions if refills are denied. Patient taking differently: Take 2 tablets by mouth every 4 hours as needed. Under [place] law, monthly prescriptions (30 days) can be [...] Description 07/07/2025 2:40 PM EST Office Visit [facility] Cardiothor[facility] [address], [address] [place] [address] Phillip Clark MD [address] [place] [address] Pending Results Name Type Priority [...] 52 AM EDT MAGNESIUM, PLASMA Routine 06/20/2025 1: 52 AM EDT BASIC METABOLIC PANEL, PLASMA Add-On [...] PANEL, PLASMA Routine 06/16/2025 5:35 PM EDT ND CRITICAL CARE, E/M 30-74 MINUTES Routine 06/16/2025 [...] PEP THERAPY Routine 06/15/2025 12:00 PM EDT ND CRITICAL CARE, E/M 30-74 MINUTES Routine 06/15/2025 [...] 1 VIEW Routine 06/15/2025 2:53 AM EDT ND CRITICAL CARE, ADDL 30 MIN Routine 06/15/2025 12:21 AM EDT Other secondary hypertension ND CRITICAL CARE, ADDL 30 MIN Routine 06/15/2025 [...] PANEL, ARTERIAL Routine 06/14/2025 6:47 PM EDT ND CRITICAL CARE, E/M 30-74 MINUTES Routine 06/14/2025 [...] UNSOLICITED RESULTS Routine 06/14/2025 8:13 AM EDT ND -AORT GRF W/CARD BYP F/AORTIC DISSECTION 06/14/2025 [...] - 99 mg/dL 06/20/2025 2:47 AM EDT [facility] BUN, Plasma 22 8 - 23 mg/dL 06/20/2025 2:47 AM EDT [facility] Creatinine, Plasma 0.85 0.70 - 1.20 mg/dL 06/20/2025 2:47 AM EDT [facility] BUN/Creatinine Ratio 26 06/20/2025 2:47 AM EDT [facility] Sodium, Plasma 131(L) 136 - 145 mmol/L 06/20/2025 2:47 AM EDT [facility] Potassium, Plasma 4.0 3.6 - 4.9 mmol/L 06/20/2025 2:47 AM EDT [facility] Chloride, Plasma 102 97 - 107 mmol/L 06/20/2025 2:47 AM EDT [facility] CO2, Plasma 24 22 - 29 mmol/L 06/20/2025 2:47 AM EDT [facility] Anion Gap 5(L) 6 - 16 mmol/L 06/20/2025 2:47 AM EDT [facility] Total Calcium, Plasma 7.9(L) 8.9 - 10.2 mg/dL 06/20/2025 2:47 AM EDT [facility] eGFRcr 94.1 mL/min/1.7 3m*2 06/20/2025 2:47 AM EDT [facility] Comment:Reported eGFRcr in m L/min/1.73m2 is based the CKD-EPI 2020 equation that does not use a race coefficient. Blood Venous blood specimen / Unknown Venipuncture / Unknown 06/20/2025 1:52 AM EDT 06/20/2025 1:59 AM EDT Phillip Clark MD LAB BLOOD ORDERABLES Final R esult Performing Organization Address City/[facility] Co de Phone Number [facility] [address] [place] [address] * Phosphorus (06/20/2025 1:52 AM EDT) Phosphorus, Plasma 2.8 2.5 - 4.5 mg/dL 06/20/2025 2:23 AM EDT [facility] Blood Venous blood specimen / Unknown Venipuncture / Unknown 06/20/2025 1:52 AM EDT 06/20/2025 1:59 AM EDT us Phillip Clark MD LAB BLOOD ORDERABLES Final R esult Performing Organization Address City/[facility]/ZIP Co de Phone Number [facility] [address] [place] [address] * (ABNORMAL) Protime-INR (06/20/2025 1:52 AM EDT) Prothrombin Time 30.4(H) 12.0 - 14.3 sec LAB COAGULATION METHOD 06/20/2025 2:29 AM EDT [facility] INR 2.9(H) 0.9 - 1.1 LAB COAGULATION METHOD 06/20/2025 2:29 AM EDT [facility] Blood Venous blood specimen / Unknown Venipuncture / Unknown 06/20/2025 1:52 AM EDT 06/20/2025 1:59 AM EDT Narrative [facility] - 06/20/2025 2:29 AM EDT [...] ORDERABLES Final R esult Performing Organization Address City/[facility]/ZIP Co de Phone Number [facility] [address] [place] [address] * Magnesium (06/20/2025 1:52 AM EDT) [facility] Magnesium, Plasma 2.2 1.9 - 2.4 mg/dL 06/20/2025 2:23 AM EDT [facility] Blood Venous blood specimen / Unknown Venipuncture / Unknown 06/20/2025 1:52 AM EDT 06/20/2025 1:59 AM EDT us Phillip Clark MD LAB BLOOD ORDERABLES Final R esult Performing Organization Address City/[facility]/ZIP Co de Phone Number [facility] [address] [place] [address] * (ABNORMAL) CBC (06/20/2025 1:52 AM EDT) [facility] WBC Count 6.95 3.70 - 10.30 10*3/uL LAB HEMATOLOGY METHOD 06/20/2025 2:07 AM EDT [facility] RBC Count 3.73(L) 4.60 - 6.10 10*6/uL LAB HEMATOLOGY METHOD 06/20/2025 2:07 AM EDT [facility] HGB 10.4(L) 13.7 - 17.5 g/dL LAB HEMATOLOGY METHOD 06/20/2025 2:07 AM EDT [facility] HCT 31.9(L) 40.0 - 51.0 % LAB HEMATOLOGY METHOD 06/20/2025 2:07 AM EDT [facility] Platelet Count 187 155 - 369 10*3/uL LAB HEMATOLOGY METHOD 06/20/2025 2:07 AM EDT [facility] MCV 86 79 - 98 fL LAB HEMATOLOGY METHOD 06/20/2025 2:07 AM EDT [facility] MCH 27.9 26.0 - 32.0 pg LAB HEMATOLOGY METHOD 06/20/2025 2:07 AM EDT [facility] MCHC 32.6 30.7 - 35.5 g/dL LAB HEMATOLOGY METHOD 06/20/2025 2:07 AM EDT [facility] RDW 14.8(H) 11.5 - 14.5 % LAB HEMATOLOGY METHOD 06/20/2025 2:07 AM EDT [facility] MPV 10.2 8.8 - 12.5 fL LAB HEMATOLOGY METHOD 06/20/2025 2:07 AM EDT [facility] nRBC 0.0 <=0.0 per 100 WBCs LAB HEMATOLOGY METHOD 06/20/2025 2:07 AM EDT [facility] Blood Venous blood specimen / Unknown Venipuncture / Unknown 06/20/2025 1:52 AM EDT 06/20/2025 1:59 AM EDT us Phillip Clark MD LAB BLOOD ORDERABLES Final R esult Performing Organization Address City/State/[facility] Co de Phone Number [facility] [address] [place] [address] * PERIPHERAL IV (SMARTFORM LINK) (06/20/2025 1:47 [...] ECG Atrial Rate 85 BPM MUSE ECG ND Interval 176 ms MUSE ECG QRSD Interval 110 ms MUSE ECG QT Interval 402 ms MUSE ECG QTC Interval 478 ms MUSE ECG P [place] 43 degrees MUSE ECG R [place] -30 degrees MUSE ECG T Wave [place] 36 degrees MUSE ECG Diagnosis Poor data quality, interpretation may be adversely affected MUSE ECG Diagnosis Sinus rhythm with premature supraventricular complexes and with occasional premature ventricular complexes MUSE ECG Diagnosis Left axis deviation MUSE ECG Diagnosis Poor R-wave progression MUSE ECG Diagnosis Abnormal ECG MUSE ECG Diagnosis Recommend repeat ECG MUSE ECG Diagnosis MUSE ECG Diagnosis Confirmed by Aman Coe ([id number]) on 06/19/2025 1:33:10 PM MUSE ECG 06/19/2025 12:4 9 PM EDT 06/19/2025 1:33 PM EDT us Barbara MARIE ECG ORDERABLES Final Resul t MUSE ECG * (ABNORMAL) Basic metabolic panel (06/19/2025 2:38 AM EDT) Glucose, Plasma 102(H) 74 - 99 mg/dL 06/19/2025 4:10 AM EDT [facility] BUN, Plasma 25(H) 8 - 23 mg/dL 06/19/2025 4:10 AM EDT [facility] Creatinine, Plasma 1.02 0.70 - 1.20 mg/dL 06/19/2025 4:10 AM EDT [facility] BUN/Creatinine Ratio 25 06/19/2025 4:10 AM EDT [facility] Sodium, Plasma 134(L) 136 - 145 mmol/L 06/19/2025 4:10 AM EDT [facility] Potassium, Plasma 4.6 3.6 - 4.9 mmol/L 06/19/2025 4:10 AM EDT [facility] Comment:Hemolyzed - Potassiu m may be falsely elevated by approximately 0.4-0.7 mmol/L. Chloride, Plasma 102 97 - 107 mmol/L 06/19/2025 4:10 AM EDT [facility] CO2, Plasma 23 22 - 29 mmol/L 06/19/2025 4:10 AM EDT [facility] Anion Gap 9 6 - 16 mmol/L 06/19/2025 4:10 AM EDT [facility] Total Calcium, Plasma 8.4(L) 8.9 - 10.2 mg/dL 06/19/2025 4:10 AM EDT [facility] eGFRcr 79.6 mL/min/1.7 3m*2 06/19/2025 4:10 AM EDT [facility] Comment:Reported eGFRcr in m L/min/1.73m2 is based the CKD-EPI 2020 equation that does not use a race coefficient. Blood Venous blood specimen / Unknown Venipuncture / Unknown 06/19/2025 2:38 AM EDT 06/19/2025 2:54 AM EDT us Phillip Clark MD LAB BLOOD ORDERABLES Final R esult Performing Organization Address City/[facility] Co de Phone Number [facility] [address] [place] [address] * Phosphorus (06/19/2025 2:38 AM EDT) Phosphorus, Plasma 3.6 2.5 - 4.5 mg/dL 06/19/2025 4:10 AM EDT [facility] Blood Venous blood specimen / Unknown Venipuncture / Unknown 06/19/2025 2:38 AM EDT 06/19/2025 2:54 AM EDT Phillip Clark MD LAB BLOOD ORDERABLES Final R esult Performing Organization Address City/[facility]/ZIP Co de Phone Number [facility] [address] [place] [address] * (ABNORMAL) Protime-INR (06/19/2025 2:38 AM EDT) Prothrombin Time 26.3(H) 12.0 - 14.3 sec LAB COAGULATION METHOD 06/19/2025 3:09 AM EDT [facility] INR 2.4(H) 0.9 - 1.1 LAB COAGULATION METHOD 06/19/2025 3:09 AM EDT [facility] Blood Venous blood specimen / Unknown Venipuncture / Unknown 06/19/2025 2:38 AM EDT 06/19/2025 2:54 AM EDT Narrative [facility] - 06/19/2025 3:09 AM EDT [...] MD LAB BLOOD ORDERABLES Final R esult [facility] [address] [place] [address] * Magnesium (06/19/2025 2:38 AM EDT) Pathologist [facility] Magnesium, Plasma 2.4 1.9 - 2.4 mg/dL 06/19/2025 4:10 AM EDT [facility] Blood Venous blood specimen / Unknown Venipuncture / Unknown 06/19/2025 2:38 AM EDT 06/19/2025 2:54 AM EDT Phillip Clark MD LAB BLOOD ORDERABLES Final R esult [facility] [address] [place] [address] * (ABNORMAL) CBC (06/19/2025 2:38 AM EDT) Pathologist [facility] WBC Count 6.94 3.70 - 10.30 10*3/uL LAB HEMATOLOGY METHOD 06/19/2025 3:17 AM EDT [facility] RBC Count 4.12(L) 4.60 - 6.10 10*6/uL LAB HEMATOLOGY METHOD 06/19/2025 3:17 AM EDT [facility] HGB 11.5(L) 13.7 - 17.5 g/dL LAB HEMATOLOGY METHOD 06/19/2025 3:17 AM EDT [facility] HCT 35.7(L) 40.0 - 51.0 % LAB HEMATOLOGY METHOD 06/19/2025 3:17 AM EDT [facility] Platelet Count 165 155 - 369 10*3/uL LAB HEMATOLOGY METHOD 06/19/2025 3:17 AM EDT [facility] MCV 87 79 - 98 fL LAB HEMATOLOGY METHOD 06/19/2025 3:17 AM EDT [facility] MCH 27.9 26.0 - 32.0 pg LAB HEMATOLOGY METHOD 06/19/2025 3:17 AM EDT [facility] MCHC 32.2 30.7 - 35.5 g/dL LAB HEMATOLOGY METHOD 06/19/2025 3:17 AM EDT [facility] RDW 14.8(H) 11.5 - 14.5 % LAB HEMATOLOGY METHOD 06/19/2025 3:17 AM EDT [facility] MPV 10.6 8.8 - 12.5 fL LAB HEMATOLOGY METHOD 06/19/2025 3:17 AM EDT [facility] nRBC 0.0 <=0.0 per 100 WBCs LAB HEMATOLOGY METHOD 06/19/2025 3:17 AM EDT [facility] Blood Venous blood specimen / Unknown Venipuncture / Unknown 06/19/2025 2:38 AM EDT 06/19/2025 2:54 AM EDT us Phillip Clark MD LAB BLOOD ORDERABLES Final R esult [facility] [address] [place] [address] * XR Chest 1 View (06/19/2025 1:50 [...] - 99 mg/dL 06/18/2025 2:17 AM EDT [facility] BUN, Plasma 18 8 - 23 mg/dL 06/18/2025 2:17 AM EDT [facility] Creatinine, Plasma 0.82 0.70 - 1.20 mg/dL 06/18/2025 2:17 AM EDT [facility] BUN/Creatinine Ratio 22 06/18/2025 2:17 AM EDT [facility] Sodium, Plasma 134(L) 136 - 145 mmol/L 06/18/2025 2:17 AM EDT [facility] Potassium, Plasma 3.7 3.6 - 4.9 mmol/L 06/18/2025 2:17 AM EDT [facility] Chloride, Plasma 100 97 - 107 mmol/L 06/18/2025 2:17 AM EDT [facility] CO2, Plasma 26 22 - 29 mmol/L 06/18/2025 2:17 AM EDT [facility] Anion Gap 8 6 - 16 mmol/L 06/18/2025 2:17 AM EDT [facility] Total Calcium, Plasma 8.1(L) 8.9 - 10.2 mg/dL 06/18/2025 2:17 AM EDT [facility] eGFRcr 95.1 mL/min/1.7 3m*2 06/18/2025 2:17 AM EDT [facility] Comment:Reported eGFRcr in m L/min/1.73m2 is based the CKD-EPI 2020 equation that does not use a race coefficient. Blood Blood sample taken from central line / Unknown Venipuncture / Unknown 06/18/2025 1:43 AM EDT 06/18/2025 1:48 AM EDT Phillip Clark MD LAB BLOOD ORDERABLES Final R esult Performing Organization Address City/[facility]/ZIP Co de Phone Number [facility] [address] [place] [address] * Phosphorus (06/18/2025 1:43 AM EDT) Pathologist [facility] Phosphorus, Plasma 2.6 2.5 - 4.5 mg/dL 06/18/2025 2:17 AM EDT [facility] Blood Blood sample taken from central line / Unknown Venipuncture / Unknown 06/18/2025 1:43 AM EDT 06/18/2025 1:48 AM EDT Phillip Clark MD [facility]LOOD [facility]AB[facility] Performing Organization Address City/[facility] Co de Phone Number [facility] [address] [place] [address] * (ABNORMAL) Protime-INR (06/18/2025 1:43 AM EDT) Prothrombin Time 25.2(H) 12.0 - 14.3 sec LAB COAGULATION METHOD 06/18/2025 2:07 AM EDT [facility] INR 2.3(H) 0.9 - 1.1 LAB COAGULATION METHOD 06/18/2025 2:07 AM EDT [facility] Blood Blood sample taken from central line / Unknown Venipuncture / Unknown 06/18/2025 1:43 AM EDT 06/18/2025 1:48 AM EDT Narrative [facility] - 06/18/2025 2:07 AM EDT [...] R esult Performing Organization Address [facility] Co de Phone Number [facility] [address] [place] [address] * Magnesium (06/18/2025 1:43 AM EDT) [facility] Magnesium, Plasma 2.3 1.9 - 2.4 mg/dL 06/18/2025 2:17 AM EDT [facility] Blood Blood sample taken from central line / Unknown Venipuncture / Unknown 06/18/2025 1:43 AM EDT 06/18/2025 1:48 AM EDT Phillip Clark MD LAB BLOOD ORDERABLES Final R esult Performing Organization Address [facility] de Phone Number [facility] [address] [place] [address] * (ABNORMAL) CBC (06/18/2025 1:43 AM EDT) [facility] WBC Count 8.51 3.70 - 10.30 10*3/uL LAB HEMATOLOGY METHOD 06/18/2025 1:54 AM EDT [facility] RBC Count 3.67(L) 4.60 - 6.10 10*6/uL LAB HEMATOLOGY METHOD 06/18/2025 1:54 AM EDT [facility] HGB 10.6(L) 13.7 - 17.5 g/dL LAB HEMATOLOGY METHOD 06/18/2025 1:54 AM EDT [facility] HCT 31.2(L) 40.0 - 51.0 % LAB HEMATOLOGY METHOD 06/18/2025 1:54 AM EDT [facility] Platelet Count 121(L) 155 - 369 10*3/uL LAB HEMATOLOGY METHOD 06/18/2025 1:54 AM EDT [facility] MCV 85 79 - 98 fL LAB HEMATOLOGY METHOD 06/18/2025 1:54 AM EDT [facility] MCH 28.9 26.0 - 32.0 pg LAB HEMATOLOGY METHOD 06/18/2025 1:54 AM EDT [facility] MCHC 34.0 30.7 - 35.5 g/dL LAB HEMATOLOGY METHOD 06/18/2025 1:54 AM EDT [facility] RDW 14.7(H) 11.5 - 14.5 % LAB HEMATOLOGY METHOD 06/18/2025 1:54 AM EDT [facility] MPV 10.4 8.8 - 12.5 fL LAB HEMATOLOGY METHOD 06/18/2025 1:54 AM EDT [facility] nRBC 0.0 <=0.0 per 100 WBCs LAB HEMATOLOGY METHOD 06/18/2025 1:54 AM EDT [facility] Blood Blood sample taken from central line / Unknown Venipuncture / Unknown 06/18/2025 1:43 AM EDT 06/18/2025 1:48 AM EDT us Phillip Clark MD LAB BLOOD ORDERABLES Final R esult [facility] [address] [place] [address] * XR Chest 1 View (06/17/2025 3:14 [...] - 99 mg/dL 06/17/2025 12:54 AM EDT [facility] BUN, Plasma 15 8 - 23 mg/dL 06/17/2025 12:54 AM EDT [facility] Creatinine, Plasma 0.81 0.70 - 1.20 mg/dL 06/17/2025 12:54 AM EDT [facility] BUN/Creatinine Ratio 19 06/17/2025 12:54 AM EDT [facility] Sodium, Plasma 133(L) 136 - 145 mmol/L 06/17/2025 12:54 AM EDT [facility] Potassium, Plasma 3.9 3.6 - 4.9 mmol/L 06/17/2025 12:54 AM EDT [facility] Chloride, Plasma 98 97 - 107 mmol/L 06/17/2025 12:54 AM EDT [facility] CO2, Plasma 25 22 - 29 mmol/L 06/17/2025 12:54 AM EDT [facility] Anion Gap 10 6 - 16 mmol/L 06/17/2025 12:54 AM EDT [facility] Total Calcium, Plasma 8.1(L) 8.9 - 10.2 mg/dL 06/17/2025 12:54 AM EDT [facility] eGFRcr 95.4 mL/min/1.7 3m*2 06/17/2025 12:54 AM EDT [facility] Comment:Reported eGFRcr in m L/min/1.73m2 is based the CKD-EPI 2020 equation that does not use a race coefficient. Blood Blood sample taken from central line / Unknown Venipuncture / Unknown 06/17/2025 12:17 AM EDT 06/17/2025 12:24 AM EDT us Phillip Clark MD LAB BLOOD ORDERABLES Final R esult Performing Organization Address City/[facility]/ZIP Co de Phone Number [facility] [address] [place] [address] * Phosphorus (06/17/2025 12:17 AM EDT) Phosphorus, Plasma 2.9 2.5 - 4.5 mg/dL 06/17/2025 12:54 AM EDT [facility] Blood Blood sample taken from central line / Unknown Venipuncture / Unknown 06/17/2025 12:17 AM EDT 06/17/2025 12:24 AM EDT us Phillip Clark MD LAB BLOOD ORDERABLES Final R esult Performing Organization Address City/[facility]/ZIP Co de Phone Number [facility] [address] [place] [address] * (ABNORMAL) Protime-INR (06/17/2025 12:17 AM EDT) Prothrombin Time 18.7(H) 12.0 - 14.3 sec LAB COAGULATION METHOD 06/17/2025 1:16 AM EDT [facility] INR 1.5(H) 0.9 - 1.1 LAB COAGULATION METHOD 06/17/2025 1:16 AM EDT [facility] Blood Blood sample taken from central line / Unknown Venipuncture / Unknown 06/17/2025 12:17 AM EDT 06/17/2025 12:24 AM EDT Narrative [facility] - 06/17/2025 1:16 AM EDT [...] MD LAB BLOOD ORDERABLES Final R esult [facility] [address] [place] [address] * Magnesium (06/17/2025 12:17 AM EDT) Magnesium, Plasma 2.3 1.9 - 2.4 mg/dL 06/17/2025 12:54 AM EDT [facility] Blood Blood sample taken from central line / Unknown Venipuncture / Unknown 06/17/2025 12:17 AM EDT 06/17/2025 12:24 AM EDT us Phillip Clark MD LAB BLOOD ORDERABLES Final R esult [facility] [address] [place] [address] * (ABNORMAL) CBC (06/17/2025 12:17 AM EDT) WBC Count 10.83(H) 3.70 - 10.30 10*3/uL LAB HEMATOLOGY METHOD 06/17/2025 12:32 AM EDT [facility] RBC Count 4.08(L) 4.60 - 6.10 10*6/uL LAB HEMATOLOGY METHOD 06/17/2025 12:32 AM EDT [facility] HGB 11.3(L) 13.7 - 17.5 g/dL LAB HEMATOLOGY METHOD 06/17/2025 12:32 AM EDT [facility] HCT 35.0(L) 40.0 - 51.0 % LAB HEMATOLOGY METHOD 06/17/2025 12:32 AM EDT [facility] Platelet Count 116(L) 155 - 369 10*3/uL LAB HEMATOLOGY METHOD 06/17/2025 12:32 AM EDT [facility] MCV 86 79 - 98 fL LAB HEMATOLOGY METHOD 06/17/2025 12:32 AM EDT [facility] MCH 27.7 26.0 - 32.0 pg LAB HEMATOLOGY METHOD 06/17/2025 12:32 AM EDT [facility] MCHC 32.3 30.7 - 35.5 g/dL LAB HEMATOLOGY METHOD 06/17/2025 12:32 AM EDT [facility] RDW 15.1(H) 11.5 - 14.5 % LAB HEMATOLOGY METHOD 06/17/2025 12:32 AM EDT [facility] MPV 10.3 8.8 - 12.5 fL LAB HEMATOLOGY METHOD 06/17/2025 12:32 AM EDT [facility] nRBC 0.0 <=0.0 per 100 WBCs LAB HEMATOLOGY METHOD 06/17/2025 12:32 AM EDT [facility] Blood Blood sample taken from central line / Unknown Venipuncture / Unknown 06/17/2025 12:17 AM EDT 06/17/2025 12:24 AM EDT us Phillip Clark MD LAB BLOOD ORDERABLES Final R esult [facility] [address] [place] [address] * Magnesium (06/16/2025 5:35 PM EDT) Magnesium, Plasma 2.2 1.9 - 2.4 mg/dL 06/16/2025 7:41 PM EDT [facility] Blood Venous blood specimen / Unknown Venipuncture / Unknown 06/16/2025 5:35 PM EDT 06/16/2025 7:12 PM EDT us Phillip Clark MD LAB BLOOD ORDERABLES Final R esult [facility] [address] [place] [address] * (ABNORMAL) Renal function panel (06/16/2025 5:35 PM EDT) Glucose, Plasma 89 74 - 99 mg/dL 06/16/2025 7:41 PM EDT [facility] BUN, Plasma 15 8 - 23 mg/dL 06/16/2025 7:41 PM EDT [facility] Creatinine, Plasma 0.79 0.70 - 1.20 mg/dL 06/16/2025 7:41 PM EDT [facility] BUN/Creatinine Ratio 19 06/16/2025 7:41 PM EDT [facility] Sodium, Plasma 134(L) 136 - 145 mmol/L 06/16/2025 7:41 PM EDT [facility] Potassium, Plasma 3.8 3.6 - 4.9 mmol/L 06/16/2025 7:41 PM EDT [facility] Chloride, Plasma 98 97 - 107 mmol/L 06/16/2025 7:41 PM EDT [facility] CO2, Plasma 25 22 - 29 mmol/L 06/16/2025 7:41 PM EDT [facility] Anion Gap 11 6 - 16 mmol/L 06/16/2025 7:41 PM EDT [facility] Total Calcium, Plasma 8.4(L) 8.9 - 10.2 mg/dL 06/16/2025 7:41 PM EDT [facility] Phosphorus, Plasma 2.2(L) 2.5 - 4.5 mg/dL 06/16/2025 7:41 PM EDT [facility] Albumin, Plasma 3.4(L) 3.5 - 5.2 g/dL 06/16/2025 7:41 PM EDT [facility] eGFRcr 96.2 mL/min/1.7 3m*2 06/16/2025 7:41 PM EDT [facility] Comment:Reported eGFRcr in m L/min/1.73m2 is based the CKD-EPI 2020 equation that does not use a race coefficient. Blood Venous blood specimen / Unknown Venipuncture / Unknown 06/16/2025 5:35 PM EDT 06/16/2025 7:12 PM EDT us Phillip Clark MD LAB BLOOD ORDERABLES Final R esult [facility] [address] [place] [address] * [place] CRITICAL CARE, E/M 30-74 MINUTES (06/16/2025 9:58 [...] - 99 mg/dL 06/16/2025 8:45 AM EDT [facility] Comment:Accuracy of a glucos e result [...] Comment 06/16/2025 8:45 AM EDT [facility] Inspector Wire Rope ID Fariba Blanton [id number] 8:45 AM EDT [facility] Device ID [id number] 06/16/2025 8:45 AM EDT [facility] Specimen Type POC Arterial 06/16/2025 8:45 AM EDT [facility] Blood Arterial blood specimen / Unknown 06/16/2025 8:40 AM EDT 06/16/2025 8:45 AM EDT Phillip Clark MD LAB POINT OF CARE TE ST DOCKED DEVICE UNSOLICITED RESULTS Final Result [facility] [address] [place] [address] * (ABNORMAL) Basic metabolic panel (06/16/2025 5:58 AM EDT) Glucose, Plasma 124(H) 74 - 99 mg/dL 06/16/2025 6:35 AM EDT [facility] BUN, Plasma 16 8 - 23 mg/dL 06/16/2025 6:35 AM EDT [facility] Creatinine, Plasma 0.83 0.70 - 1.20 mg/dL 06/16/2025 6:35 AM EDT [facility] BUN/Creatinine Ratio 19 06/16/2025 6:35 AM EDT [facility] Sodium, Plasma 132(L) 136 - 145 mmol/L 06/16/2025 6:35 AM EDT [facility] Potassium, Plasma 3.8 3.6 - 4.9 mmol/L 06/16/2025 6:35 AM EDT [facility] Chloride, Plasma 100 97 - 107 mmol/L 06/16/2025 6:35 AM EDT [facility] CO2, Plasma 25 22 - 29 mmol/L 06/16/2025 6:35 AM EDT [facility] Anion Gap 7 6 - 16 mmol/L 06/16/2025 6:35 AM EDT [facility] Total Calcium, Plasma 8.4(L) 8.9 - 10.2 mg/dL 06/16/2025 6:35 AM EDT [facility] eGFRcr 94.7 mL/min/1.7 3m*2 06/16/2025 6:35 AM EDT [facility] Comment:Reported eGFRcr in m L/min/1.73m2 is based the CKD-EPI 2020 equation that does not use a race coefficient. Blood Arterial blood specimen / Unknown Venipuncture / Unknown 06/16/2025 5:58 AM EDT 06/16/2025 6:05 AM EDT us Phillip Clark MD LAB BLOOD ORDERABLES Final R esult [facility] [address] [place] [address] * XR Chest 1 View (06/16/2025 5:14 AM EDT) Anatomical Region Laterality Modality Chest Digital Radiogra phy Impressions 06/16/2025 8:15 AM EDT Interval removal of the [place] catheter, the right IJ sheath remains in [...] post median sternotomy. Interval removal of the [place] catheter, right IJ sheath remains in place with tip in the mid to distal SVC. No pneumothorax or pleural effusions. Ongoing interstitial edema. Procedure Note Mona Smith MD - 06/16/2025 CLINICAL INDICATION: Post-Op Cardiac Surgery TECHNIQUE: XR CHEST 1 VIEW COMPARISON: Chest radiograph 06/15/2025 FINDINGS: Enlarged cardiac silhouette stable status post median sternotomy. Intervalremoval of the [place] catheter, right IJ sheath remains in place withtip in the mid to distal SVC. No pneumothorax or pleural effusions. Ongoing interstitial edema. IMPRESSION: Interval removal of the [place] catheter, the right IJ sheath remainsin place [...] - 4.5 mg/dL 06/16/2025 1:12 AM EDT [facility] Blood Arterial blood specimen / Unknown Venipuncture / Unknown 06/16/2025 12:36 AM EDT 06/16/2025 12:48 AM EDT us Phillip Clark MD LAB BLOOD ORDERABLES Final R esult [facility] [address] [place] [address] * (ABNORMAL) Protime-INR (06/16/2025 12:36 AM EDT) Prothrombin Time 18.0(H) 12.0 - 14.3 sec LAB COAGULATION METHOD 06/16/2025 1:06 AM EDT [facility] INR 1.5(H) 0.9 - 1.1 LAB COAGULATION METHOD 06/16/2025 1:06 AM EDT [facility] Blood Arterial blood specimen / Unknown Venipuncture / Unknown 06/16/2025 12:36 AM EDT 06/16/2025 12:48 AM EDT Narrative [facility] - 06/16/2025 1:06 AM EDT [...] ORDERABLES Final R esult Performing Organization Address City/[facility]/ZIP Co de Phone Number [facility] [address] [place] [address] * (ABNORMAL) Magnesium (06/16/2025 12:36 AM EDT) Magnesium, Plasma 2.5(H) 1.9 - 2.4 mg/dL 06/16/2025 1:12 AM EDT [facility] Blood Arterial blood specimen / Unknown Venipuncture / Unknown 06/16/2025 12:36 AM EDT 06/16/2025 12:48 AM EDT us Phillip Clark MD LAB BLOOD [facility]ABLES [facility] Performing Organization Address [facility]/ZIP Co de Phone Number [facility] [address] [place] [address] * (ABNORMAL) CBC (06/16/2025 12:36 AM EDT) WBC Count 13.67(H) 3.70 - 10.30 10*3/uL LAB HEMATOLOGY METHOD 06/16/2025 1:01 AM EDT [facility] RBC Count 4.36(L) 4.60 - 6.10 10*6/uL LAB HEMATOLOGY METHOD 06/16/2025 1:01 AM EDT [facility] HGB 12.3(L) 13.7 - 17.5 g/dL LAB HEMATOLOGY METHOD 06/16/2025 1:01 AM EDT [facility] HCT 37.1(L) 40.0 - 51.0 % LAB HEMATOLOGY METHOD 06/16/2025 1:01 AM EDT [facility] Platelet Count 106(L) 155 - 369 10*3/uL LAB HEMATOLOGY METHOD 06/16/2025 1:01 AM EDT [facility] MCV 85 79 - 98 fL LAB HEMATOLOGY METHOD 06/16/2025 1:01 AM EDT [facility] MCH 28.2 26.0 - 32.0 pg LAB HEMATOLOGY METHOD 06/16/2025 1:01 AM EDT [facility] MCHC 33.2 30.7 - 35.5 g/dL LAB HEMATOLOGY METHOD 06/16/2025 1:01 AM EDT [facility] RDW 15.4(H) 11.5 - 14.5 % LAB HEMATOLOGY METHOD 06/16/2025 1:01 AM EDT [facility] MPV 10.8 8.8 - 12.5 fL LAB HEMATOLOGY METHOD 06/16/2025 1:01 AM EDT [facility] nRBC 0.0 <=0.0 per 100 WBCs LAB HEMATOLOGY METHOD 06/16/2025 1:01 AM EDT [facility] Blood Arterial blood specimen / Unknown Venipuncture / Unknown 06/16/2025 12:36 AM EDT 06/16/2025 12:48 AM EDT us Phillip Clark MD LAB BLOOD ORDERABLES Final R esult [facility] [address] [place] [address] * (ABNORMAL) Blood gas, arterial (06/16/2025 12:36 AM EDT) pH, Arterial 7.43(H) 7.31 - 7.42 LAB HEMATOLOGY METHOD 06/16/2025 12:58 AM EDT [facility] pCO2, Arterial 41 32 - 45 mmHg LAB HEMATOLOGY METHOD 06/16/2025 12:58 AM EDT [facility] pO2, Arterial 65(L) >80 mmHg LAB HEMATOLOGY METHOD 06/16/2025 12:58 AM EDT [facility] SO2, Measured, Arterial 94 94 - 98 % LAB HEMATOLOGY METHOD 06/16/2025 12:58 AM EDT [facility] Base Excess, Arterial 2.5 -2.0 - 3.0 mmol/L LAB HEMATOLOGY METHOD 06/16/2025 12:58 AM EDT [facility] Bicarbonate, Calculated, Arterial 27(H) 22 - 26 mmol/L LAB HEMATOLOGY METHOD 06/16/2025 12:58 AM EDT [facility] Hematocrit, Whole Blood 37.9(L) 40.0 - 51.0 % LAB HEMATOLOGY METHOD 06/16/2025 12:58 AM EDT [facility] Sodium, Whole Blood 133(L) 136 - 145 mmol/L LAB HEMATOLOGY METHOD 06/16/2025 12:58 AM EDT [facility] Potassium, Whole Blood 3.4(L) 3.6 - 4.9 mmol/L LAB HEMATOLOGY METHOD 06/16/2025 12:58 AM EDT [facility] Chloride, Whole Blood 100 97 - 107 mmol/L LAB HEMATOLOGY METHOD 06/16/2025 12:58 AM EDT [facility] Glucose, Whole Blood 124(H) 74 - 99 mg/dL LAB HEMATOLOGY METHOD 06/16/2025 12:58 AM EDT [facility] Ionized Calcium, Whole Blood 4.3(L) 4.6 - 5.1 mg/dL LAB HEMATOLOGY METHOD 06/16/2025 12:58 AM EDT [facility] Lactate, Arterial, Whole Blood 1.0 0.5 - 1.6 mmol/L LAB HEMATOLOGY METHOD 06/16/2025 12:58 AM EDT [facility] Blood Arterial blood specimen / Unknown Arterial Puncture / Unknown 06/16/2025 12:36 AM EDT 06/16/2025 12:55 AM EDT us Phillip Clark MD LAB BLOOD ORDERABLES Final R esult [facility] [address] [place] [address] * (ABNORMAL) POCT glucose meter (06/15/2025 8:00 [...] 06/15/2025 8:01 PM EDT [facility] Inspector Wire Rope ID Svetlana Reilly 8:01 PM EDT [facility] Device ID [id number] 06/15/2025 8:01 PM EDT [facility] Specimen Type POC Capillary 06/15/2025 8:01 PM EDT [facility] Blood Capillary blood specimen / Unknown 06/15/2025 8:00 PM EDT 06/15/2025 8:01 PM EDT Phillip Clark MD LAB POINT OF CARE TE ST DOCKED DEVICE UNSOLICITED RESULTS Final Result Performing Organization Address City/[facility]/ZIP Co de Phone Number [facility] [address] [place] [address] * (ABNORMAL) POCT glucose meter (06/15/2025 5:56 PM EDT) [facility] POCT Glucose 121(H) 74 - 99 mg/dL [...] 06/15/2025 5:57 PM EDT [facility] Inspector Wire Rope ID Bony Thomas [id number] 5:57 PM EDT [facility] Device ID [id number] 06/15/2025 5:57 PM EDT [facility] Specimen Type POC Arterial 06/15/2025 5:57 PM EDT [facility] Blood Arterial blood specimen / Unknown 06/15/2025 5:56 PM EDT 06/15/2025 5:57 PM EDT us Phillip Clark MD LAB POINT OF CARE TE ST DOCKED DEVICE UNSOLICITED RESULTS Final Result Performing Organization Address City/[facility]/ZIP Co de Phone Number [facility] [address] [place] [address] * Magnesium (06/15/2025 4:11 PM EDT) [facility] Magnesium, Plasma 2.1 1.9 - 2.4 mg/dL 06/15/2025 6:21 PM EDT [facility] Blood Venous blood specimen / Unknown Venipuncture / Unknown 06/15/2025 4:11 PM EDT 06/15/2025 4:39 PM EDT Phillip Clark MD LAB BLOOD ORDERABLES Final R esult Performing Organization Address City/[facility]/ZIP Co de Phone Number [facility] [address] [place] [address] * Phosphorus (06/15/2025 4:11 PM EDT) Phosphorus, Plasma 2.9 2.5 - 4.5 mg/dL 06/15/2025 5:12 PM EDT [facility] Blood Venous blood specimen / Unknown Venipuncture / Unknown 06/15/2025 4:11 PM EDT 06/15/2025 4:39 PM EDT Phillip Clark MD LAB BLOOD ORDERABLES Final R esult Performing Organization Address City/[facility] Co de Phone Number [facility] [address] [place] [address] * (ABNORMAL) Basic metabolic panel (06/15/2025 4:11 PM EDT) Glucose, Plasma 123(H) 74 - 99 mg/dL 06/15/2025 5:12 PM EDT [facility] BUN, Plasma 19 8 - 23 mg/dL 06/15/2025 5:12 PM EDT [facility] Creatinine, Plasma 0.88 0.70 - 1.20 mg/dL 06/15/2025 5:12 PM EDT [facility] BUN/Creatinine Ratio 22 06/15/2025 5:12 PM EDT [facility] Sodium, Plasma 133(L) 136 - 145 mmol/L 06/15/2025 5:12 PM EDT [facility] Potassium, Plasma 3.9 3.6 - 4.9 mmol/L 06/15/2025 5:12 PM EDT [facility] Chloride, Plasma 102 97 - 107 mmol/L 06/15/2025 5:12 PM EDT [facility] CO2, Plasma 23 22 - 29 mmol/L 06/15/2025 5:12 PM EDT [facility] Anion Gap 8 6 - 16 mmol/L 06/15/2025 5:12 PM EDT [facility] Total Calcium, Plasma 8.6(L) 8.9 - 10.2 mg/dL 06/15/2025 5:12 PM EDT [facility] eGFRcr 93.1 mL/min/1.7 3m*2 06/15/2025 5:12 PM EDT [facility] Comment:Reported eGFRcr in m L/min/1.73m2 is based the CKD-EPI 2020 equation that does not use a race coefficient. Blood Venous blood specimen / Unknown Venipuncture / Unknown 06/15/2025 4:11 PM EDT 06/15/2025 4:39 PM EDT Phillip Clark MD LAB BLOOD ORDERABLES Final R esult [facility] [address] [place] [address] * (ABNORMAL) POCT glucose meter (06/15/2025 12:14 [...] 06/15/2025 12:16 PM EDT [facility] Inspector Wire Rope ID Bony Thomas 025 12:16 PM EDT [facility] Device ID [id number] 06/15/2025 12:16 PM EDT [facility] Specimen Type POC Arterial 06/15/2025 12:16 PM EDT [facility] Blood Arterial blood specimen / Unknown 06/15/2025 12:14 PM EDT 06/15/2025 12:16 PM EDT us Phillip Clark MD LAB POINT OF CARE TE ST DOCKED DEVICE UNSOLICITED RESULTS Final Result [facility] [address] [place] [address] * [place] [facility], E/M 30-74 MINUTES (06/15/2025 9:19 [...] for testing. Comment 06/15/2025 8:25 AM EDT [facility] Inspector Wire Rope ID Bony Thomas 025 8:25 AM EDT [facility] Device ID [id number] 06/15/2025 8:25 AM EDT [facility] Specimen Type POC Arterial 06/15/2025 8:25 AM EDT [facility] Blood Arterial blood specimen / Unknown 06/15/2025 8:24 AM EDT 06/15/2025 8:25 AM EDT us Phillip Clark MD LAB POINT OF CARE TE ST DOCKED DEVICE UNSOLICITED RESULTS Final Result [facility] [address] [place] [id number] * (ABNORMAL) CBC and Differential (06/15/2025 8:18 AM EDT) WBC Count 12.56(H) 3.70 - 10.30 10*3/uL LAB HEMATOLOGY METHOD 06/15/2025 8:47 AM EDT [facility] RBC Count 4.60 4.60 - 6.10 10*6/uL LAB HEMATOLOGY METHOD 06/15/2025 8:47 AM EDT [facility] HGB 12.8(L) 13.7 - 17.5 g/dL LAB HEMATOLOGY METHOD 06/15/2025 8:47 AM EDT [facility] HCT 39.4(L) 40.0 - 51.0 % LAB HEMATOLOGY METHOD 06/15/2025 8:47 AM EDT [facility] Platelet Count 120(L) 155 - 369 10*3/uL LAB HEMATOLOGY METHOD 06/15/2025 8:47 AM EDT [facility] MCV 86 79 - 98 fL LAB HEMATOLOGY METHOD 06/15/2025 8:47 AM EDT [facility] MCH 27.8 26.0 - 32.0 pg LAB HEMATOLOGY METHOD 06/15/2025 8:47 AM EDT [facility] MCHC 32.5 30.7 - 35.5 g/dL LAB HEMATOLOGY METHOD 06/15/2025 8:47 AM EDT [facility] RDW 15.5(H) 11.5 - 14.5 % LAB HEMATOLOGY METHOD 06/15/2025 8:47 AM EDT [facility] MPV 10.6 8.8 - 12.5 fL LAB HEMATOLOGY METHOD 06/15/2025 8:47 AM EDT [facility] nRBC 0.0 <=0.0 per 100 WBCs LAB HEMATOLOGY METHOD 06/15/2025 8:47 AM EDT [facility] Differential Type Automated LAB HEMATOLOGY METHOD 06/15/2025 8:47 AM EDT [facility] Neutrophils % 84 % LAB HEMATOLOGY METHOD 06/15/2025 8:47 AM EDT [facility] Lymphocytes % 5 % LAB HEMATOLOGY METHOD 06/15/2025 8:47 AM EDT [facility] Monocytes % 10 % LAB HEMATOLOGY METHOD 06/15/2025 8:47 AM EDT [facility] Eosinophils % 0 % LAB HEMATOLOGY METHOD 06/15/2025 8:47 AM EDT [facility] Basophils % 0 % LAB HEMATOLOGY METHOD 06/15/2025 8:47 AM EDT [facility] Immature Granulocytes % 1 % LAB HEMATOLOGY METHOD 06/15/2025 8:47 AM EDT [facility] Neutrophils Absolute 10.59(H) 1.60 - 6.10 10*3/uL LAB HEMATOLOGY METHOD 06/15/2025 8:47 AM EDT [facility] Lymphocytes Absolute 0.60(L) 1.20 - 3.90 10*3/uL LAB HEMATOLOGY METHOD 06/15/2025 8:47 AM EDT [facility] Monocytes Absolute 1.29(H) 0.30 - 0.90 10*3/uL LAB HEMATOLOGY METHOD 06/15/2025 8:47 AM EDT [facility] Eosinophils Absolute 0.00 0.00 - 0.50 10*3/uL LAB HEMATOLOGY METHOD 06/15/2025 8:47 AM EDT [facility] Basophils Absolute 0.02 0.00 - 0.10 10*3/uL LAB HEMATOLOGY METHOD 06/15/2025 8:47 AM EDT [facility] Immature Granulocytes Absolute 0.06 0.00 - 0.06 10*3/uL LAB HEMATOLOGY METHOD 06/15/2025 8:47 AM EDT [facility] Blood Venous blood specimen / Unknown Venipuncture / Unknown 06/15/2025 8:18 AM EDT 06/15/2025 8:34 AM EDT [facility] - 06/15/2025 8:47 AM EDT Therapeutic decision making should be based on absolute values, rather than percentages. Phillip Clark MD LAB BLOOD ORDERABLES Final R esult Performing Organization Address [facility] de Phone Number [facility] [address] [place] [address] * (ABNORMAL) Protime-INR (06/15/2025 6:40 AM EDT) Prothrombin Time 16.5(H) 12.0 - 14.3 sec LAB COAGULATION METHOD 06/15/2025 7:53 AM EDT [facility] INR 1.3(H) 0.9 - 1.1 LAB COAGULATION METHOD 06/15/2025 7:53 AM EDT [facility] Blood Arterial blood specimen / Unknown Venipuncture / Unknown 06/15/2025 6:40 AM EDT 06/15/2025 6:47 AM EDT [facility] - 06/15/2025 7:53 AM EDT OPTIMAL [...] ORDERABLES Final R esult Performing Organization Address City/[facility] Co de Phone Number [address] [address] * Ionized calcium, whole blood (06/15/2025 6:40 AM EDT) Ionized Calcium, Whole Blood 4.6 4.6 - 5.1 mg/dL LAB HEMATOLOGY METHOD 06/15/2025 6:50 AM EDT [facility] Blood Arterial blood specimen / Unknown Venipuncture / Unknown 06/15/2025 6:40 AM EDT 06/15/2025 6:48 AM EDT us Phillip Clark MD LAB BLOOD ORDERABLES Final R esult [facility] [address] [place] [address] * ECG Adult - POD 1 (06/15/2025 5:20 AM EDT) EKG DIAGNOSIS CLASS Abnormal MUSE ECG Ventricular Rate 71 BPM MUSE ECG Atrial Rate 71 BPM MUSE ECG ND Interval 182 ms MUSE ECG QRSD Interval 108 ms MUSE ECG QT Interval 418 ms MUSE ECG QTC Interval 454 ms MUSE ECG P [place] 51 degrees MUSE ECG R [place] -48 degrees MUSE ECG T Wave [place] -12 degrees MUSE ECG Diagnosis Normal sinus rhythm MUSE ECG Diagnosis Left anterior fascicular block MUSE ECG Diagnosis Abnormal ECG MUSE ECG Diagnosis MUSE ECG Diagnosis Confirmed by Bimal Brambila ([id number]) on 06/15/2025 11:38:57 AM MUSE ECG 06/15/2025 5:20 AM EDT 06/15/2025 11:38 AM EDT us Phillip Clark MD ECG ORDERABLES Final Result MUSE ECG * (ABNORMAL) Blood gas panel, arterial (06/15/2025 3:58 AM EDT) pH, Arterial 7.39 7.31 - 7.42 LAB HEMATOLOGY METHOD 06/15/2025 4:06 AM EDT [facility] pCO2, Arterial 39 32 - 45 mmHg LAB HEMATOLOGY METHOD 06/15/2025 4:06 AM EDT [facility] pO2, Arterial 79(L) >80 mmHg LAB HEMATOLOGY METHOD 06/15/2025 4:06 AM EDT [facility] SO2, Measured, Arterial 97 94 - 98 % LAB HEMATOLOGY METHOD 06/15/2025 4:06 AM EDT [facility] Base Excess, Arterial -1.2 -2.0 - 3.0 mmol/L LAB HEMATOLOGY METHOD 06/15/2025 4:06 AM EDT [facility] Bicarbonate, Calculated, Arterial 24 22 - 26 mmol/L LAB HEMATOLOGY METHOD 06/15/2025 4:06 AM EDT [facility] Hematocrit, Whole Blood 39.7(L) 40.0 - 51.0 % LAB HEMATOLOGY METHOD 06/15/2025 4:06 AM EDT [facility] Sodium, Whole Blood 134(L) 136 - 145 mmol/L LAB HEMATOLOGY METHOD 06/15/2025 4:06 AM EDT [facility] Potassium, Whole Blood 4.4 3.6 - 4.9 mmol/L LAB HEMATOLOGY METHOD 06/15/2025 4:06 AM EDT [facility] Chloride, Whole Blood 108(H) 97 - 107 mmol/L LAB HEMATOLOGY METHOD 06/15/2025 4:06 AM EDT [facility] Glucose, Whole Blood 132(H) 74 - 99 mg/dL LAB HEMATOLOGY METHOD 06/15/2025 4:06 AM EDT [facility] Ionized Calcium, Whole Blood 4.5(L) 4.6 - 5.1 mg/dL LAB HEMATOLOGY METHOD 06/15/2025 4:06 AM EDT [facility] Lactate, Arterial, Whole Blood 0.9 0.5 - 1.6 mmol/L LAB HEMATOLOGY METHOD 06/15/2025 4:06 AM EDT [facility] Blood Arterial blood specimen / Unknown Arterial Puncture / Unknown 06/15/2025 3:58 AM EDT 06/15/2025 4:06 AM EDT us Phillip Clark MD LAB BLOOD ORDERABLES Final R esult Performing Organization Address City/State/[facility] Co de Phone Number [facility] [address] [place] [address] * XR Chest 1 View (06/15/2025 2:53 [...] of NG tube. Right internal jugular approach [place] catheter and mediastinal drain in unchanged position. [...] Idania Edmonds MD on 06/15/2025 8:47 AM Phillip Clark MD IMG XR PROCEDURES Final Resu lt * ND CRITICAL CARE, ADDL 30 MIN, ND CRITICAL CARE, ADDL 30 MIN (06/15/2025 12:21 [...] LAB HEMATOLOGY METHOD 06/15/2025 8:17 AM EDT [facility] Neutrophils % 85 % LAB HEMATOLOGY METHOD 06/15/2025 8:17 AM EDT [facility] Lymphocytes % 4 % LAB HEMATOLOGY METHOD 06/15/2025 8:17 AM EDT [facility] Monocytes % 10 % LAB HEMATOLOGY METHOD 06/15/2025 8:17 AM EDT [facility] Eosinophils % 0 % LAB HEMATOLOGY METHOD 06/15/2025 8:17 AM EDT [facility] Basophils % 0 % LAB HEMATOLOGY METHOD 06/15/2025 8:17 AM EDT [facility] Immature Granulocytes % 1 % LAB HEMATOLOGY METHOD 06/15/2025 8:17 AM EDT [facility] Immature Granulocytes Absolute 0.05 0.00 - 0.06 10*3/uL LAB HEMATOLOGY METHOD 06/15/2025 8:17 AM EDT [facility] Neutrophils Absolute 9.28(H) 1.60 - 6.10 10*3/uL LAB HEMATOLOGY METHOD 06/15/2025 8:17 AM EDT [facility] Lymphocytes Absolute 0.45(L) 1.20 - 3.90 10*3/uL LAB HEMATOLOGY METHOD 06/15/2025 8:17 AM EDT [facility] Monocytes Absolute 1.14(H) 0.30 - 0.90 10*3/uL LAB HEMATOLOGY METHOD 06/15/2025 8:17 AM EDT [facility] Basophils Absolute 0.02 0.00 - 0.10 10*3/uL LAB HEMATOLOGY METHOD 06/15/2025 8:17 AM EDT [facility] Eosinophils Absolute 0.00 0.00 - 0.50 10*3/uL LAB HEMATOLOGY METHOD 06/15/2025 8:17 AM EDT [facility] Blood Venous blood specimen / Unknown Venipuncture / Unknown 06/15/2025 12:20 AM EDT 06/15/2025 12:26 AM EDT Phillip Clark MD LAB BLOOD ORDERABLES Final R esult Performing Organization Address City/[facility]/ZIP Co de Phone Number [facility] [address] [place] [address] * Phosphorus (06/15/2025 12:20 AM EDT) Phosphorus, Plasma 2.6 2.5 - 4.5 mg/dL 06/15/2025 8:33 AM EDT [facility] Blood Venous blood specimen / Unknown Venipuncture / Unknown 06/15/2025 12:20 AM EDT 06/15/2025 12:26 AM EDT Phillip Clark MD LAB BLOOD ORDERABLES Final R esult Performing Organization Address [facility] [place] [address] * (ABNORMAL) Magnesium (06/15/2025 12:20 AM EDT) Magnesium, Plasma 2.5(H) 1.9 - 2.4 mg/dL 06/15/2025 7:37 AM EDT [facility] Blood Venous blood specimen / Unknown Venipuncture / Unknown 06/15/2025 12:20 AM EDT 06/15/2025 12:26 AM EDT us Phillip Clark MD LAB BLOOD ORDERABLES Final R esult Performing Organization Address City/[facility] Co de Phone Number [facility] [address] [place] [address] * (ABNORMAL) Basic metabolic panel (06/15/2025 12:20 AM EDT) Glucose, Plasma 140(H) 74 - 99 mg/dL 06/15/2025 7:37 AM EDT [facility] BUN, Plasma 17 8 - 23 mg/dL 06/15/2025 7:37 AM EDT [facility] Creatinine, Plasma 0.84 0.70 - 1.20 mg/dL 06/15/2025 7:37 AM EDT [facility] BUN/Creatinine Ratio 20 06/15/2025 7:37 AM EDT [facility] Sodium, Plasma 138 136 - 145 mmol/L 06/15/2025 7:37 AM EDT [facility] Potassium, Plasma 4.6 3.6 - 4.9 mmol/L 06/15/2025 7:37 AM EDT [facility] Chloride, Plasma 107 97 - 107 mmol/L 06/15/2025 7:37 AM EDT [facility] CO2, Plasma 18(L) 22 - 29 mmol/L 06/15/2025 7:37 AM EDT [facility] Anion Gap 13 6 - 16 mmol/L 06/15/2025 7:37 AM EDT [facility] Total Calcium, Plasma 8.0(L) 8.9 - 10.2 mg/dL 06/15/2025 7:37 AM EDT [facility] eGFRcr 94.4 mL/min/1.7 3m*2 06/15/2025 7:37 AM EDT [facility] Comment:Reported eGFRcr in m L/min/1.73m2 is based the CKD-EPI 2020 equation that does not use a race coefficient. Blood Venous blood specimen / Unknown Venipuncture / Unknown 06/15/2025 12:20 AM EDT 06/15/2025 12:26 AM EDT us Phillip Clark MD LAB BLOOD ORDERABLES Final R esult [facility] [address] [place] [address] * (ABNORMAL) CBC W/O Differential (06/15/2025 12:20 AM EDT) WBC Count 10.94(H) 3.70 - 10.30 10*3/uL LAB HEMATOLOGY METHOD 06/15/2025 8:32 AM EDT [facility] RBC Count 4.94 4.60 - 6.10 10*6/uL LAB HEMATOLOGY METHOD 06/15/2025 8:32 AM EDT [facility] HGB 13.6(L) 13.7 - 17.5 g/dL LAB HEMATOLOGY METHOD 06/15/2025 8:32 AM EDT [facility] HCT 41.0 40.0 - 51.0 % LAB HEMATOLOGY METHOD 06/15/2025 8:32 AM EDT [facility] Platelet Count 142(L) 155 - 369 10*3/uL LAB HEMATOLOGY METHOD 06/15/2025 8:32 AM EDT [facility] MCV 87 79 - 98 fL LAB HEMATOLOGY METHOD 06/15/2025 8:32 AM EDT [facility] MCH 27.5 26.0 - 32.0 pg LAB HEMATOLOGY METHOD 06/15/2025 8:32 AM EDT [facility] MCHC 31.8 30.7 - 35.5 g/dL LAB HEMATOLOGY METHOD 06/15/2025 8:32 AM EDT [facility] RDW 15.6(H) 11.5 - 14.5 % LAB HEMATOLOGY METHOD 06/15/2025 8:32 AM EDT [facility] MPV 11.1 8.8 - 12.5 fL LAB HEMATOLOGY METHOD 06/15/2025 8:32 AM EDT [facility] nRBC 0.0 <=0.0 per 100 WBCs LAB HEMATOLOGY METHOD 06/15/2025 8:32 AM EDT [facility] Blood Venous blood specimen / Unknown Venipuncture / Unknown 06/15/2025 12:20 AM EDT 06/15/2025 12:26 AM EDT us Phillip Clark MD LAB BLOOD ORDERABLES Final R esult [facility] [address] [place] [address] * Potassium, Plasma (06/15/2025 12:20 AM EDT) [facility] Potassium, Plasma 4.5 3.6 - 4.9 mmol/L 06/15/2025 12:51 AM EDT [facility] Blood Venous blood specimen / Unknown Venipuncture / Unknown 06/15/2025 12:20 AM EDT 06/15/2025 12:26 AM EDT Phillip Clark MD LAB BLOOD ORDERABLES Final R esult Performing Organization Address City/[facility]/ZIP Co de Phone Number [facility] [address] [place] [address] * Hematocrit (06/15/2025 12:20 AM EDT) Pathologist [facility] HCT 41.0 40.0 - 51.0 % LAB HEMATOLOGY METHOD 06/15/2025 12:36 AM EDT [facility] Blood Venous blood specimen / Unknown Venipuncture / Unknown 06/15/2025 12:20 AM EDT 06/15/2025 12:26 AM EDT Phillip Clark MD LAB BLOOD ORDERABLES Final R esult Performing Organization Address [facility] [place] [address] * (ABNORMAL) Hemoglobin (06/15/2025 12:20 AM EDT) [facility] HGB 13.6(L) 13.7 - 17.5 g/dL LAB HEMATOLOGY METHOD 06/15/2025 12:36 AM EDT [facility] Blood Venous blood specimen / Unknown Venipuncture / Unknown 06/15/2025 12:20 AM EDT 06/15/2025 12:26 AM EDT Phillip Clark MD LAB BLOOD ORDERABLES Final R esult Performing Organization Address City/[facility] Co de Phone Number [facility] [address] [place] [address] * (ABNORMAL) Blood gas, arterial (06/15/2025 12:20 AM EDT) pH, Arterial 7.37 7.31 - 7.42 LAB HEMATOLOGY METHOD 06/15/2025 12:37 AM EDT [facility] pCO2, Arterial 40 32 - 45 mmHg LAB HEMATOLOGY METHOD 06/15/2025 12:37 AM EDT [facility] pO2, Arterial 65(L) >80 mmHg LAB HEMATOLOGY METHOD 06/15/2025 12:37 AM EDT [facility] SO2, Measured, Arterial 94 94 - 98 % LAB HEMATOLOGY METHOD 06/15/2025 12:37 AM EDT [facility] Base Excess, Arterial -1.8 -2.0 - 3.0 mmol/L LAB HEMATOLOGY METHOD 06/15/2025 12:37 AM EDT [facility] Bicarbonate, Calculated, Arterial 23 22 - 26 mmol/L LAB HEMATOLOGY METHOD 06/15/2025 12:37 AM EDT [facility] Hematocrit, Whole Blood 41.1 40.0 - 51.0 % LAB HEMATOLOGY METHOD 06/15/2025 12:37 AM EDT [facility] Sodium, Whole Blood 137 136 - 145 mmol/L LAB HEMATOLOGY METHOD 06/15/2025 12:37 AM EDT [facility] Potassium, Whole Blood 4.2 3.6 - 4.9 mmol/L LAB HEMATOLOGY METHOD 06/15/2025 12:37 AM EDT [facility] Chloride, Whole Blood 110(H) 97 - 107 mmol/L LAB HEMATOLOGY METHOD 06/15/2025 12:37 AM EDT [facility] Glucose, Whole Blood 140(H) 74 - 99 mg/dL LAB HEMATOLOGY METHOD 06/15/2025 12:37 AM EDT [facility] Ionized Calcium, Whole Blood 4.5(L) 4.6 - 5.1 mg/dL LAB HEMATOLOGY METHOD 06/15/2025 12:37 AM EDT [facility] Lactate, Arterial, Whole Blood 1.8(H) 0.5 - 1.6 mmol/L LAB HEMATOLOGY METHOD 06/15/2025 12:37 AM EDT [facility] Blood Arterial blood specimen / Unknown Arterial Puncture / Unknown 06/15/2025 12:20 AM EDT 06/15/2025 12:34 AM EDT us Phillip Clark MD LAB BLOOD ORDERABLES Final R esult [facility] [address] [place] [address] * (ABNORMAL) Blood gas, arterial (06/14/2025 8:04 PM EDT) pH, Arterial 7.35 7.31 - 7.42 LAB HEMATOLOGY METHOD 06/14/2025 8:19 PM EDT [facility] pCO2, Arterial 39 32 - 45 mmHg LAB HEMATOLOGY METHOD 06/14/2025 8:19 PM EDT [facility] pO2, Arterial 88 >80 mmHg LAB HEMATOLOGY METHOD 06/14/2025 8:19 PM EDT [facility] SO2, Measured, Arterial 98 94 - 98 % LAB HEMATOLOGY METHOD 06/14/2025 8:19 PM EDT [facility] Base Excess, Arterial -3.7(L) -2.0 - 3.0 mmol/L LAB HEMATOLOGY METHOD 06/14/2025 8:19 PM EDT [facility] Bicarbonate, Calculated, Arterial 22 22 - 26 mmol/L LAB HEMATOLOGY METHOD 06/14/2025 8:19 PM EDT [facility] Hematocrit, Whole Blood 44.7 40.0 - 51.0 % LAB HEMATOLOGY METHOD 06/14/2025 8:19 PM EDT [facility] Sodium, Whole Blood 138 136 - 145 mmol/L LAB HEMATOLOGY METHOD 06/14/2025 8:19 PM EDT [facility] Potassium, Whole Blood 4.5 3.6 - 4.9 mmol/L LAB HEMATOLOGY METHOD 06/14/2025 8:19 PM EDT [facility] Chloride, Whole Blood 109(H) 97 - 107 mmol/L LAB HEMATOLOGY METHOD 06/14/2025 8:19 PM EDT [facility] Glucose, Whole Blood 185(H) 74 - 99 mg/dL LAB HEMATOLOGY METHOD 06/14/2025 8:19 PM EDT [facility] Ionized Calcium, Whole Blood 4.5(L) 4.6 - 5.1 mg/dL LAB HEMATOLOGY METHOD 06/14/2025 8:19 PM EDT [facility] Lactate, Arterial, Whole Blood 3.0(H) 0.5 - 1.6 mmol/L LAB HEMATOLOGY METHOD 06/14/2025 8:19 PM EDT [facility] Blood Arterial blood specimen / Unknown Arterial Puncture / Unknown 06/14/2025 8:04 PM EDT 06/14/2025 8:14 PM EDT Phillip Clark MD LAB BLOOD ORDERABLES Final R esult Performing Organization Address City/[facility]/ZIP Co de Phone Number [facility] [address] [place] [address] * Potassium (06/14/2025 8:03 PM EDT) Potassium, Plasma 4.9 3.6 - 4.9 mmol/L 06/14/2025 8:33 PM EDT [facility] Blood Arterial blood specimen / Unknown Venipuncture / Unknown 06/14/2025 8:03 PM EDT 06/14/2025 8:11 PM EDT Phillip Clark MD LAB BLOOD ORDERABLES Final R esult Performing Organization Address [facility] Co de Phone Number [facility] [address] [place] [address] * (ABNORMAL) Magnesium (06/14/2025 8:03 PM EDT) Magnesium, Plasma 2.7(H) 1.9 - 2.4 mg/dL 06/14/2025 8:40 PM EDT [facility] Blood Arterial blood specimen / Unknown Venipuncture / Unknown 06/14/2025 8:03 PM EDT 06/14/2025 8:11 PM EDT Phillip Clark MD LAB BLOOD ORDERABLES Final R esult Performing Organization Address City/[facility]/ZIP Co de Phone Number [facility] [address] [place] [address] * (ABNORMAL) CBC (06/14/2025 8:03 PM EDT) WBC Count 13.98(H) 3.70 - 10.30 10*3/uL LAB HEMATOLOGY METHOD 06/14/2025 8:20 PM EDT [facility] RBC Count 5.14 4.60 - 6.10 10*6/uL LAB HEMATOLOGY METHOD 06/14/2025 8:20 PM EDT [facility] HGB 14.5 13.7 - 17.5 g/dL LAB HEMATOLOGY METHOD 06/14/2025 8:20 PM EDT [facility] HCT 43.9 40.0 - 51.0 % LAB HEMATOLOGY METHOD 06/14/2025 8:20 PM EDT [facility] Platelet Count 158 155 - 369 10*3/uL LAB HEMATOLOGY METHOD 06/14/2025 8:20 PM EDT [facility] MCV 85 79 - 98 fL LAB HEMATOLOGY METHOD 06/14/2025 8:20 PM EDT [facility] MCH 28.2 26.0 - 32.0 pg LAB HEMATOLOGY METHOD 06/14/2025 8:20 PM EDT [facility] MCHC 33.0 30.7 - 35.5 g/dL LAB HEMATOLOGY METHOD 06/14/2025 8:20 PM EDT [facility] RDW 14.9(H) 11.5 - 14.5 % LAB HEMATOLOGY METHOD 06/14/2025 8:20 PM EDT [facility] MPV 10.8 8.8 - 12.5 fL LAB HEMATOLOGY METHOD 06/14/2025 8:20 PM EDT [facility] nRBC 0.0 <=0.0 per 100 WBCs LAB HEMATOLOGY METHOD 06/14/2025 8:20 PM EDT [facility] Blood Arterial blood specimen / Unknown Venipuncture / Unknown 06/14/2025 8:03 PM EDT 06/14/2025 8:11 PM EDT us Phillip Clark MD LAB BLOOD ORDERABLES Final R esult [facility] [address] [place] [address] * (ABNORMAL) Basic metabolic panel (06/14/2025 8:03 PM EDT) Glucose, Plasma 194(H) 74 - 99 mg/dL 06/14/2025 8:40 PM EDT [facility] BUN, Plasma 16 8 - 23 mg/dL 06/14/2025 8:40 PM EDT [facility] Creatinine, Plasma 0.85 0.70 - 1.20 mg/dL 06/14/2025 8:40 PM EDT [facility] BUN/Creatinine Ratio 19 06/14/2025 8:40 PM EDT [facility] Sodium, Plasma 139 136 - 145 mmol/L 06/14/2025 8:40 PM EDT [facility] Potassium, Plasma 5.0(H) 3.6 - 4.9 mmol/L 06/14/2025 8:40 PM EDT [facility] Chloride, Plasma 109(H) 97 - 107 mmol/L 06/14/2025 8:40 PM EDT [facility] CO2, Plasma 20(L) 22 - 29 mmol/L 06/14/2025 8:40 PM EDT [facility] Anion Gap 10 6 - 16 mmol/L 06/14/2025 8:40 PM EDT [facility] Total Calcium, Plasma 8.2(L) 8.9 - 10.2 mg/dL 06/14/2025 8:40 PM EDT [facility] eGFRcr 94.1 mL/min/1.7 3m*2 06/14/2025 8:40 PM EDT [facility] Comment:Reported eGFRcr in m L/min/1.73m2 is based the CKD-EPI 2020 equation that does not use a race coefficient. Blood Arterial blood specimen / Unknown Venipuncture / Unknown 06/14/2025 8:03 PM EDT 06/14/2025 8:11 PM EDT us Phillip Clark MD LAB BLOOD ORDERABLES Final R esult [facility] [address] [place] [address] * (ABNORMAL) Blood gas panel, arterial (06/14/2025 6:47 PM EDT) pH, Arterial 7.30(L) 7.31 - 7.42 LAB HEMATOLOGY METHOD 06/14/2025 6:57 PM EDT [facility] pCO2, Arterial 41 32 - 45 mmHg LAB HEMATOLOGY METHOD 06/14/2025 6:57 PM EDT [facility] pO2, Arterial 70(L) >80 mmHg LAB HEMATOLOGY METHOD 06/14/2025 6:57 PM EDT [facility] SO2, Measured, Arterial 94 94 - 98 % LAB HEMATOLOGY METHOD 06/14/2025 6:57 PM EDT [facility] Base Excess, Arterial -5.6(L) -2.0 - 3.0 mmol/L LAB HEMATOLOGY METHOD 06/14/2025 6:57 PM EDT [facility] Bicarbonate, Calculated, Arterial 21(L) 22 - 26 mmol/L LAB HEMATOLOGY METHOD 06/14/2025 6:57 PM EDT [facility] Hematocrit, Whole Blood 45.5 40.0 - 51.0 % LAB HEMATOLOGY METHOD 06/14/2025 6:57 PM EDT [facility] Sodium, Whole Blood 138 136 - 145 mmol/L LAB HEMATOLOGY METHOD 06/14/2025 6:57 PM EDT [facility] Potassium, Whole Blood 4.4 3.6 - 4.9 mmol/L LAB HEMATOLOGY METHOD 06/14/2025 6:57 PM EDT [facility] Chloride, Whole Blood 109(H) 97 - 107 mmol/L LAB HEMATOLOGY METHOD 06/14/2025 6:57 PM EDT [facility] Glucose, Whole Blood 209(H) 74 - 99 mg/dL LAB HEMATOLOGY METHOD 06/14/2025 6:57 PM EDT [facility] Ionized Calcium, Whole Blood 4.6 4.6 - 5.1 mg/dL LAB HEMATOLOGY METHOD 06/14/2025 6:57 PM EDT [facility] Lactate, Arterial, Whole Blood 3.9(H) 0.5 - 1.6 mmol/L LAB HEMATOLOGY METHOD 06/14/2025 6:57 PM EDT [facility] Blood Arterial blood specimen / Unknown Arterial Puncture / Unknown 06/14/2025 6:47 PM EDT 06/14/2025 6:56 PM EDT us Phillip Clark MD LAB BLOOD ORDERABLES Final R esult [facility] [address] [place] [address] * [place] CRITICAL CARE, E/M 30-74 MINUTES (06/14/2025 5:35 [...] LAB HEMATOLOGY METHOD 06/14/2025 4:12 PM EDT [facility] pCO2, Arterial 43 32 - 45 mmHg LAB HEMATOLOGY METHOD 06/14/2025 4:12 PM EDT [facility] pO2, Arterial 126 >80 mmHg LAB HEMATOLOGY METHOD 06/14/2025 4:12 PM EDT [facility] SO2, Measured, Arterial 99(H) 94 - 98 % LAB HEMATOLOGY METHOD 06/14/2025 4:12 PM EDT [facility] Base Excess, Arterial -5.8(L) -2.0 - 3.0 mmol/L LAB HEMATOLOGY METHOD 06/14/2025 4:12 PM EDT [facility] Bicarbonate, Calculated, Arterial 21(L) 22 - 26 mmol/L LAB HEMATOLOGY METHOD 06/14/2025 4:12 PM EDT [facility] Hematocrit, Whole Blood 43.9 40.0 - 51.0 % LAB HEMATOLOGY METHOD 06/14/2025 4:12 PM EDT [facility] Sodium, Whole Blood 139 136 - 145 mmol/L LAB HEMATOLOGY METHOD 06/14/2025 4:12 PM EDT [facility] Potassium, Whole Blood 3.8 3.6 - 4.9 mmol/L LAB HEMATOLOGY METHOD 06/14/2025 4:12 PM EDT [facility] Chloride, Whole Blood 109(H) 97 - 107 mmol/L LAB HEMATOLOGY METHOD 06/14/2025 4:12 PM EDT [facility] Glucose, Whole Blood 179(H) 74 - 99 mg/dL LAB HEMATOLOGY METHOD 06/14/2025 4:12 PM EDT [facility] Ionized Calcium, Whole Blood 4.6 4.6 - 5.1 mg/dL LAB HEMATOLOGY METHOD 06/14/2025 4:12 PM EDT [facility] Lactate, Arterial, Whole Blood 4.3(H) 0.5 - 1.6 mmol/L LAB HEMATOLOGY METHOD 06/14/2025 4:12 PM EDT [facility] Blood Arterial blood specimen / Unknown Arterial Puncture / Unknown 06/14/2025 3:57 PM EDT 06/14/2025 4:11 PM EDT us Phillip Clark MD LAB BLOOD ORDERABLES Final R esult [facility] [address] [place] [address] * (ABNORMAL) Blood gas panel with oximetry, mixed venous (06/14/2025 3:00 PM EDT) pH, Mixed Venous 7.28(L) 7.32 - 7.43 LAB HEMATOLOGY METHOD 06/14/2025 3:24 PM EDT [facility] pCO2, Mixed Venous 47 40 - 55 mmHg LAB HEMATOLOGY METHOD 06/14/2025 3:24 PM EDT [facility] pO2, Mixed Venous 54(H) 25 - 40 mmHg LAB HEMATOLOGY METHOD 06/14/2025 3:24 PM EDT [facility] SO2, Measured, Mixed Venous 84(H) 65 - 80 % LAB HEMATOLOGY METHOD 06/14/2025 3:24 PM EDT [facility] Bicarbonate, Calculated, Mixed Venous 22 22 - 26 mmol/L LAB HEMATOLOGY METHOD 06/14/2025 3:24 PM EDT [facility] Base Excess, Mixed Venous -4.7(L) -2.0 - 3.0 mmol/L LAB HEMATOLOGY METHOD 06/14/2025 3:24 PM EDT [facility] Hematocrit, Whole Blood 43.0 40.0 - 51.0 % LAB HEMATOLOGY METHOD 06/14/2025 3:24 PM EDT [facility] Sodium, Whole Blood 139 136 - 145 mmol/L LAB HEMATOLOGY METHOD 06/14/2025 3:24 PM EDT [facility] Potassium, Whole Blood 3.7 3.6 - 4.9 mmol/L LAB HEMATOLOGY METHOD 06/14/2025 3:24 PM EDT [facility] Chloride, Whole Blood 110(H) 97 - 107 mmol/L LAB HEMATOLOGY METHOD 06/14/2025 3:24 PM EDT [facility] Ionized Calcium, Whole Blood 4.6 4.6 - 5.1 mg/dL LAB HEMATOLOGY METHOD 06/14/2025 3:24 PM EDT [facility] Glucose, Whole Blood 149(H) 74 - 99 mg/dL LAB HEMATOLOGY METHOD 06/14/2025 3:24 PM EDT [facility] Oxyhemoglobin, Mixed Venous, Whole Blood 81.9(H) 40.0 - 70.0 % LAB HEMATOLOGY METHOD 06/14/2025 3:24 PM EDT [facility] Hemoglobin Reduced, Mixed Venous, Whole Blood 16.1 % LAB HEMATOLOGY METHOD 06/14/2025 3:24 PM EDT [facility] Total Hemoglobin, Mixed Venous, Whole Blood 14.0 13.7 - 17.5 g/dL LAB HEMATOLOGY METHOD 06/14/2025 3:24 PM EDT [facility] Blood Mixed venous blood specimen / Unknown Venipuncture / Unknown 06/14/2025 3:00 PM EDT 06/14/2025 3:23 PM EDT us Phillip Clark MD LAB BLOOD ORDERABLES Final R esult [facility] [address] [place] [address] * XR Abdomen 1 View (06/14/2025 2:57 [...] Detected Not Detected 06/15/2025 12:46 PM EDT [facility] Swab (Axilla and Groin) Non-blood Collection / Unknown 06/14/2025 2:37 PM EDT 06/14/2025 3:10 PM EDT Narrative [facility] - 06/15/2025 12:46 PM EDT This PCR assay was developed and its performance characteristics determined by [facility] as appropriate for clinical purposes. This assay has not been cleared or approved by the FDA, but is performed in a CLIA regulated laboratory that is qualified to perform high-complexity testing. us Phillip Clark MD LAB MICROBIOLOGY - GENERAL O RDERABLES Final Result [facility] [address] [place] [address] * Multi Drug Resistance Test (06/14/2025 2:37 PM EDT) Culture No growth at day 1 06/15/2025 4:03 PM EDT [facility] Swab (Nares and Smita Rectal) Non-blood Collection / Unknown 06/14/2025 2:37 PM EDT 06/14/2025 3:10 PM EDT Narrative [facility] - 06/15/2025 4:03 PM EDT This test was developed and its performance characteristics determined by the [facility]. Although the media is FDA-approved, it is not FDA-approved for all specimen types submitted. The FDA has determined that such clearance or approval is not necessary. This test is used for surveillance purposes. It should not be regarded as investigational or for research. The [facility] is certified under the Clinical Laboratory Improvement Amendments of 1988 (CLIA-88) as qualified to perform high complexity clinical laboratory testing. us Phillip Clark MD LAB MICROBIOLOGY - GENERAL O RDERABLES Final Result [facility] [address] [place] [address] * (ABNORMAL) Blood gas, arterial (06/14/2025 2:37 PM EDT) pH, Arterial 7.31 7.31 - 7.42 LAB HEMATOLOGY METHOD 06/14/2025 2:58 PM EDT [facility] pCO2, Arterial 42 32 - 45 mmHg LAB HEMATOLOGY METHOD 06/14/2025 2:58 PM EDT [facility] pO2, Arterial 154 >80 mmHg LAB HEMATOLOGY METHOD 06/14/2025 2:58 PM EDT [facility] SO2, Measured, Arterial 100(H) 94 - 98 % LAB HEMATOLOGY METHOD 06/14/2025 2:58 PM EDT [facility] Base Excess, Arterial -5.1(L) -2.0 - 3.0 mmol/L LAB HEMATOLOGY METHOD 06/14/2025 2:58 PM EDT [facility] Bicarbonate, Calculated, Arterial 21(L) 22 - 26 mmol/L LAB HEMATOLOGY METHOD 06/14/2025 2:58 PM EDT [facility] Hematocrit, Whole Blood 43.5 40.0 - 51.0 % LAB HEMATOLOGY METHOD 06/14/2025 2:58 PM EDT [facility] Sodium, Whole Blood 139 136 - 145 mmol/L LAB HEMATOLOGY METHOD 06/14/2025 2:58 PM EDT [facility] Potassium, Whole Blood 3.6 3.6 - 4.9 mmol/L LAB HEMATOLOGY METHOD 06/14/2025 2:58 PM EDT [facility] Chloride, Whole Blood 110(H) 97 - 107 mmol/L LAB HEMATOLOGY METHOD 06/14/2025 2:58 PM EDT [facility] Glucose, Whole Blood 131(H) 74 - 99 mg/dL LAB HEMATOLOGY METHOD 06/14/2025 2:58 PM EDT [facility] Ionized Calcium, Whole Blood 4.7 4.6 - 5.1 mg/dL LAB HEMATOLOGY METHOD 06/14/2025 2:58 PM EDT [facility] Lactate, Arterial, Whole Blood 5.0(H) 0.5 - 1.6 mmol/L LAB HEMATOLOGY METHOD 06/14/2025 2:58 PM EDT [facility] Blood Arterial blood specimen / Unknown Arterial Puncture / Unknown 06/14/2025 2:37 PM EDT 06/14/2025 2:57 PM EDT Phillip Clark MD LAB BLOOD ORDERABLES Final R esult [facility] [address] [place] [address] * ECG Adult - Upon Admissoin to CVICU (06/14/2025 2:36 PM EDT) EKG DIAGNOSIS CLASS Abnormal MUSE ECG Ventricular Rate 61 BPM MUSE ECG Atrial Rate 61 BPM MUSE ECG ND Interval 176 ms MUSE ECG QRSD Interval 154 ms MUSE ECG QT Interval 520 ms MUSE ECG QTC Interval 523 ms MUSE ECG P [place] 58 degrees MUSE ECG R [place] 113 degrees MUSE ECG T Wave [place] -67 degrees MUSE ECG Diagnosis Sinus rhythm [...] ECG ORDERABLES Final Result Performing Organization Address City/[facility]/ZIP Co de Phone Number MUSE ECG * Potassium, Plasma (06/14/2025 2:36 PM EDT) Potassium, Plasma 3.8 3.6 - 4.9 mmol/L 06/14/2025 4:13 PM EDT [facility] Comment:Hemolyzed, result ma y be falsely increased. Blood Venous blood specimen / Unknown Venipuncture / Unknown 06/14/2025 2:36 PM EDT 06/14/2025 3:20 PM EDT us Phillip Clark MD LAB BLOOD ORDERABLES Final R esult Performing Organization Address City/[facility]/ZIP Co de Phone Number [facility] [address] [place] [address] * Hematocrit (06/14/2025 2:36 PM EDT) HCT 42.6 40.0 - 51.0 % LAB HEMATOLOGY METHOD 06/14/2025 4:38 PM EDT [facility] Blood Venous blood specimen / Unknown Venipuncture / Unknown 06/14/2025 2:36 PM EDT 06/14/2025 4:17 PM EDT us Phillip Clark MD LAB BLOOD ORDERABLES Final R esult Performing Organization Address [facility]/ZIP Co de Phone Number [facility] [address] [place] [address] * Hemoglobin (06/14/2025 2:36 PM EDT) HGB 13.9 13.7 - 17.5 g/dL LAB HEMATOLOGY METHOD 06/14/2025 4:38 PM EDT [facility] Blood Venous blood specimen / Unknown Venipuncture / Unknown 06/14/2025 2:36 PM EDT 06/14/2025 4:17 PM EDT us Phillip Clark MD LAB BLOOD ORDERABLES Final R esult Performing Organization Address City/[facility]/ZIP Co de Phone Number [facility] [address] [place] [address] * APTT (06/14/2025 2:36 PM EDT) aPTT 29 25 - 35 sec LAB COAGULATION METHOD 06/14/2025 4:11 PM EDT [facility] Blood Venous blood specimen / Unknown Venipuncture / Unknown 06/14/2025 2:36 PM EDT 06/14/2025 3:18 PM EDT Phillip Clark MD LAB BLOOD ORDERABLES Final R esult [facility] [address] [place] [address] * (ABNORMAL) Protime-INR (06/14/2025 2:36 PM EDT) Prothrombin Time 16.6(H) 12.0 - 14.3 sec LAB COAGULATION METHOD 06/14/2025 4:11 PM EDT [facility] INR 1.3(H) 0.9 - 1.1 LAB COAGULATION METHOD 06/14/2025 4:11 PM EDT [facility] Blood Venous blood specimen / Unknown Venipuncture / Unknown 06/14/2025 2:36 PM EDT 06/14/2025 3:18 PM EDT Narrative [facility] - 06/14/2025 4:11 PM EDT [...] Clark MD LAB [facility]LOOD [facility]ABLES [facility] [address] [place] [address] * (ABNORMAL) Phosphorus (06/14/2025 2:36 PM EDT) Phosphorus, Plasma 2.3(L) 2.5 - 4.5 mg/dL 06/14/2025 4:13 PM EDT [facility] Blood Venous blood specimen / Unknown Venipuncture / Unknown 06/14/2025 2:36 PM EDT 06/14/2025 3:20 PM EDT Phillip Clark MD LAB BLOOD ORDERABLES Final R esult Performing Organization Address City/[facility]/ZIP Co de Phone Number [facility] [address] [place] [address] * (ABNORMAL) Magnesium (06/14/2025 2:36 PM EDT) Pathologist [facility] Magnesium, Plasma 3.2(H) 1.9 - 2.4 mg/dL 06/14/2025 6:55 PM EDT [facility] Blood Venous blood specimen / Unknown Venipuncture / Unknown 06/14/2025 2:36 PM EDT 06/14/2025 3:20 PM EDT Phillip Clark MD LAB BLOOD ORDERABLES [facility] Performing Organization Address [facility]/ZIP Co de Phone Number [facility] [address] [place] [address] * (ABNORMAL) Basic metabolic panel (06/14/2025 2:36 PM EDT) Glucose, Plasma 134(H) 74 - 99 mg/dL 06/14/2025 4:13 PM EDT [facility] BUN, Plasma 14 8 - 23 mg/dL 06/14/2025 4:13 PM EDT [facility] Creatinine, Plasma 0.83 0.70 - 1.20 mg/dL 06/14/2025 4:13 PM EDT [facility] BUN/Creatinine Ratio 17 06/14/2025 4:13 PM EDT [facility] Sodium, Plasma 140 136 - 145 mmol/L 06/14/2025 4:13 PM EDT [facility] Potassium, Plasma 3.8 3.6 - 4.9 mmol/L 06/14/2025 4:13 PM EDT [facility] Comment:Hemolyzed, result ma y be falsely increased. Chloride, Plasma 108(H) 97 - 107 mmol/L 06/14/2025 4:13 PM EDT [facility] CO2, Plasma 19(L) 22 - 29 mmol/L 06/14/2025 4:13 PM EDT [facility] Anion Gap 13 6 - 16 mmol/L 06/14/2025 4:13 PM EDT [facility] Total Calcium, Plasma 8.3(L) 8.9 - 10.2 mg/dL 06/14/2025 4:13 PM EDT [facility] eGFRcr 94.7 mL/min/1.7 3m*2 06/14/2025 4:13 PM EDT [facility] Comment:Reported eGFRcr in m L/min/1.73m2 is based the CKD-EPI 2020 equation that does not use a race coefficient. Blood Venous blood specimen / Unknown Venipuncture / Unknown 06/14/2025 2:36 PM EDT 06/14/2025 3:20 PM EDT us Phillip Clark MD LAB BLOOD ORDERABLES Final R esult [facility] [address] [place] [address] * (ABNORMAL) CBC (06/14/2025 2:36 PM EDT) WBC Count 15.83(H) 3.70 - 10.30 10*3/uL LAB HEMATOLOGY METHOD 06/14/2025 4:38 PM EDT [facility] RBC Count 4.98 4.60 - 6.10 10*6/uL LAB HEMATOLOGY METHOD 06/14/2025 4:38 PM EDT [facility] HGB 13.9 13.7 - 17.5 g/dL LAB HEMATOLOGY METHOD 06/14/2025 4:38 PM EDT [facility] HCT 42.6 40.0 - 51.0 % LAB HEMATOLOGY METHOD 06/14/2025 4:38 PM EDT [facility] Platelet Count 160 155 - 369 10*3/uL LAB HEMATOLOGY METHOD 06/14/2025 4:38 PM EDT [facility] MCV 86 79 - 98 fL LAB HEMATOLOGY METHOD 06/14/2025 4:38 PM EDT [facility] MCH 27.9 26.0 - 32.0 pg LAB HEMATOLOGY METHOD 06/14/2025 4:38 PM EDT [facility] MCHC 32.6 30.7 - 35.5 g/dL LAB HEMATOLOGY METHOD 06/14/2025 4:38 PM EDT [facility] RDW 15.2(H) 11.5 - 14.5 % LAB HEMATOLOGY METHOD 06/14/2025 4:38 PM EDT [facility] MPV 10.3 8.8 - 12.5 fL LAB HEMATOLOGY METHOD 06/14/2025 4:38 PM EDT [facility] nRBC 0.0 <=0.0 per 100 WBCs LAB HEMATOLOGY METHOD 06/14/2025 4:38 PM EDT [facility] Blood Venous blood specimen / Unknown Venipuncture / Unknown 06/14/2025 2:36 PM EDT 06/14/2025 4:17 PM EDT us Phillip Clark MD LAB BLOOD ORDERABLES Final R esult [facility] [address] [place] [address] * (ABNORMAL) POCT arterial blood gas gem (06/14/2025 2:00 PM EDT) pH, Arterial 7.35 7.31 - 7.42 06/14/2025 2:02 PM EDT [facility] pCO2, Arterial 38 32 - 45 mm Hg 06/14/2025 2:02 PM EDT [facility] pO2, Arterial 376 >80 mm Hg 06/14/2025 2:02 PM EDT [facility] SO2, Arterial 100(H) 94 - 98 % 06/14/2025 2:02 PM EDT [facility] Base Excess, Arterial -4.2(L) -2 - 3 mmol/L 06/14/2025 2:02 PM EDT [facility] HCO3, Arterial 21.0(L) 22 - 26 mmol/L 06/14/2025 2:02 PM EDT [facility] Total Hemoglobin, Arterial, Whole Blood 14.5 13.7 - 17.5 g/dL 06/14/2025 2:02 PM EDT [facility] Hematocrit, Arterial 44.0 40 - 51.0 % 06/14/2025 2:02 PM EDT [facility] Sodium, Arterial 136 136 - 145 mmol/L 06/14/2025 2:02 PM EDT [facility] Potassium, Arterial 3.4(L) 3.6 - 4.9 mmol/L 06/14/2025 2:02 PM EDT [facility] Chloride, Whole Blood 105 97 - 107 mmol/L 06/14/2025 2:02 PM EDT [facility] Glucose, Arterial 138(H) 74 - 99 mg/dL 06/14/2025 2:02 PM EDT [facility] Ionized Calcium, Arterial 4.9 4.6 - 5.1 mg/dL 06/14/2025 2:02 PM EDT [facility] Lactate, Arterial 4.2(H) 0.5 - 1.6 mmol/L 06/14/2025 2:02 PM EDT [facility] Body Temperature 37.0 Celsius 06/14/2025 2:02 PM EDT [facility] pH, Temp Corrected, Arterial 7.35 7.31 - 7.42 06/14/2025 2:02 PM EDT [facility] pCO2, Temp Corrected, Arterial 38 32 - 45 mm Hg 06/14/2025 2:02 PM EDT [facility] pO2, Temp Corrected, Arterial 376 >80 mm Hg 06/14/2025 2:02 PM EDT [facility] Inspector Wire Rope ID Ricki Zamarripa 06/14/2025 2:02 PM EDT [facility] Blood Whole blood specimen / Unknown 06/14/2025 2:00 PM EDT 06/14/2025 2:02 PM EDT Phillip Clark MD LAB POINT OF CARE TE ST DOCKED DEVICE UNSOLICITED RESULTS Final Result [facility] [address] [place] [address] * (ABNORMAL) POCT arterial blood gas gem (06/14/2025 1:22 PM EDT) pH, Arterial 7.34 7.31 - 7.42 06/14/2025 1:23 PM EDT [facility] pCO2, Arterial 41 32 - 45 mm Hg 06/14/2025 1:23 PM EDT [facility] pO2, Arterial 518 >80 mm Hg 06/14/2025 1:23 PM EDT [facility] SO2, Arterial 100(H) 94 - 98 % 06/14/2025 1:23 PM EDT [facility] Base Excess, Arterial -3.5(L) -2 - 3 mmol/L 06/14/2025 1:23 PM EDT [facility] HCO3, Arterial 22.1 22 - 26 mmol/L 06/14/2025 1:23 PM EDT [facility] Total Hemoglobin, Arterial, Whole Blood 13.2(L) 13.7 - 17.5 g/dL 06/14/2025 1:23 PM EDT [facility] Hematocrit, Arterial 40.0 40 - 51.0 % 06/14/2025 1: PM EDT [facility] Sodium, Arterial 139 136 - 145 mmol/L 06/14/2025 1: PM EDT [facility] Potassium, Arterial 3.3(L) 3.6 - 4.9 mmol/L 06/14/2025 1: PM EDT [facility] Chloride, Whole Blood 104 97 - 107 mmol/L 06/14/2025 1:23 PM T [facility] Glucose, Arterial 137(H) 74 - 99 mg/dL 06/14/2025 1:23 PM T [facility] Ionized Calcium, Arterial 4.2(L) 4.6 - 5.1 mg/dL 06/14/2025 1:23 PM T [facility] Lactate, Arterial 3.0(H) 0.5 - 1.6 mmol/L 06/14/2025 1:23 PM EDT [facility] Body Temperature 37.0 Celsius 06/14/2025 1:23 PM T [facility] pH, Temp Corrected, Arterial 7.34 7.31 - 7.42 06/14/2025 1:23 PM T [facility] pCO2, Temp Corrected, Arterial 41 32 - 45 mm Hg 06/14/2025 1:23 PM EDT [facility] pO2, Temp Corrected, Arterial 518 >80 mm Hg 06/14/2025 1:23 PM T [facility] Inspector Wire Rope ID Ricki Zamarripa 06/14/2025 1:23 PM EDT [facility] Blood Whole blood specimen / Unknown 06/14/2025 1:22 PM EDT 06/14/2025 1:23 PM EDT us Phillip Clark MD LAB POINT OF CARE TE ST DOCKED DEVICE UNSOLICITED RESULTS Final Result [facility] [address] [place] [address] * (ABNORMAL) POCT arterial blood gas gem (06/14/2025 12:52 PM EDT) pH, Arterial 7.40 7.31 - 7.42 06/14/2025 12:54 PM EDT [facility] pCO2, Arterial 35 32 - 45 mm Hg 06/14/2025 12:54 PM EDT [facility] pO2, Arterial 399 >80 mm Hg 06/14/2025 12:54 PM EDT [facility] SO2, Arterial 100(H) 94 - 98 % 06/14/2025 12:54 PM EDT [facility] Base Excess, Arterial -2.6(L) -2 - 3 mmol/L 06/14/2025 12:54 PM EDT [facility] HCO3, Arterial 21.7(L) 22 - 26 mmol/L 06/14/2025 12:54 PM EDT [facility] Total Hemoglobin, Arterial, Whole Blood 11.7(L) 13.7 - 17.5 g/dL 06/14/2025 12:54 PM EDT [facility] Hematocrit, Arterial 35.0(L) 40 - 51.0 % 06/14/2025 12:54 PM EDT [facility] Sodium, Arterial 134(L) 136 - 145 mmol/L 06/14/2025 12:54 PM EDT [facility] Potassium, Arterial 4.2 3.6 - 4.9 mmol/L 06/14/2025 12:54 PM EDT [facility] Chloride, Whole Blood 107 97 - 107 mmol/L 06/14/2025 12:54 PM EDT [facility] Glucose, Arterial 148(H) 74 - 99 mg/dL 06/14/2025 12:54 PM EDT [facility] Ionized Calcium, Arterial 4.1(L) 4.6 - 5.1 mg/dL 06/14/2025 12:54 PM EDT [facility] Lactate, Arterial 2.2(H) 0.5 - 1.6 mmol/L 06/14/2025 12:54 PM EDT [facility] Body Temperature 37.0 Celsius 06/14/2025 12:54 PM EDT [facility] pH, Temp Corrected, Arterial 7.40 7.31 - 7.42 06/14/2025 12:54 PM EDT [facility] pCO2, Temp Corrected, Arterial 35 32 - 45 mm Hg 06/14/2025 12:54 PM EDT [facility] pO2, Temp Corrected, Arterial 399 >80 mm Hg 06/14/2025 12:54 PM EDT [facility] Inspector Wire Rope ID Jean Claude Staley 06/14/2025 12:54 PM EDT [facility] Blood Whole blood specimen / Unknown 06/14/2025 12:52 PM EDT 06/14/2025 12:54 PM EDT Phillip Clark MD LAB POINT OF CARE TE ST DOCKED DEVICE UNSOLICITED RESULTS Final Result Performing Organization Address City/[facility] de Phone Number [facility] [address] [place] [address] * POCT ACT (06/14/2025 12:43 PM EDT) [facility] ACT+ (HIGH RANGE) 98 68 - 600 Seconds 06/14/2025 12:49 PM EDT [facility] Inspector Wire Rope ID Vick Dupont 06/14/2025 12:49 PM EDT [facility] ACT Device ID [id number] 06/14/2025 12:49 PM EDT [facility] Comment 06/14/2025 12:49 PM EDT [facility] Comment: ACT performed by staff [...] UNSOLICITED RESULTS Final Result Performing Organization Address City/[facility] Co de Phone Number [facility] [address] [place] [id number] [facility] [address] [place] [address] * (ABNORMAL) POCT arterial blood gas gem (06/14/2025 12:16 PM EDT) pH, Arterial 7.42 7.31 - 7.42 06/14/2025 12:19 PM EDT [facility] pCO2, Arterial 36 32 - 45 mm Hg 06/14/2025 12:19 PM EDT [facility] pO2, Arterial 358 >80 mm Hg 06/14/2025 12:19 PM EDT [facility] SO2, Arterial 99(H) 94 - 98 % 06/14/2025 12:19 PM EDT [facility] Base Excess, Arterial -0.8 -2 - 3 mmol/L 06/14/2025 12:19 PM EDT [facility] HCO3, Arterial 23.4 22 - 26 mmol/L 06/14/2025 12:19 PM EDT [facility] Total Hemoglobin, Arterial, Whole Blood 11.3(L) 13.7 - 17.5 g/dL 06/14/2025 12:19 PM EDT [facility] Hematocrit, Arterial 34.0(L) 40 - 51.0 % 06/14/2025 12:19 PM EDT [facility] Sodium, Arterial 134(L) 136 - 145 mmol/L 06/14/2025 12:19 PM EDT [facility] Potassium, Arterial 5.7(H) 3.6 - 4.9 mmol/L 06/14/2025 12:19 PM EDT [facility] Chloride, Whole Blood 105 97 - 107 mmol/L 06/14/2025 12:19 PM EDT [facility] Glucose, Arterial 119(H) 74 - 99 mg/dL 06/14/2025 12:19 PM EDT [facility] Ionized Calcium, Arterial 4.0(L) 4.6 - 5.1 mg/dL 06/14/2025 12:19 PM EDT [facility] Lactate, Arterial 1.6 0.5 - 1.6 mmol/L 06/14/2025 12:19 PM EDT [facility] Body Temperature 37.0 Celsius 06/14/2025 12:19 PM EDT [facility] pH, Temp Corrected, Arterial 7.42 7.31 - 7.42 06/14/2025 12:19 PM EDT [facility] pCO2, Temp Corrected, Arterial 36 32 - 45 mm Hg 06/14/2025 12:19 PM EDT [facility] pO2, Temp Corrected, Arterial 358 >80 mm Hg 06/14/2025 12:19 PM EDT [facility] Inspector Wire Rope ID iVck Dupont 06/14/2025 12:19 PM EDT [facility] Blood Whole blood specimen / Unknown 06/14/2025 12:16 PM EDT 06/14/2025 12:19 PM EDT Phillip Clark MD LAB POINT OF CARE TE ST DOCKED DEVICE UNSOLICITED RESULTS Final Result [facility] [address] [place] [address] * (ABNORMAL) POCT arterial blood gas gem (06/14/2025 12:06 PM EDT) pH, Arterial 7.39 7.31 - 7.42 06/14/2025 12:09 PM EDT [facility] pCO2, Arterial 40 32 - 45 mm Hg 06/14/2025 12:09 PM EDT [facility] pO2, Arterial 378 >80 mm Hg 06/14/2025 12:09 PM EDT [facility] SO2, Arterial 100(H) 94 - 98 % 06/14/2025 12:09 PM EDT [facility] Base Excess, Arterial -0.7 -2 - 3 mmol/L 06/14/2025 12:09 PM EDT [facility] HCO3, Arterial 24.2 22 - 26 mmol/L 06/14/2025 12:09 PM EDT [facility] Total Hemoglobin, Arterial, Whole Blood 11.5(L) 13.7 - 17.5 g/dL 06/14/2025 12:09 PM EDT [facility] Hematocrit, Arterial 35.0(L) 40 - 51.0 % 06/14/2025 12:09 PM EDT [facility] Sodium, Arterial 134(L) 136 - 145 mmol/L 06/14/2025 12:09 PM EDT [facility] Potassium, Arterial 5.0(H) 3.6 - 4.9 mmol/L 06/14/2025 12:09 PM EDT [facility] Chloride, Whole Blood 105 97 - 107 mmol/L 06/14/2025 12:09 PM EDT [facility] Glucose, Arterial 123(H) 74 - 99 mg/dL 06/14/2025 12:09 PM EDT [facility] Ionized Calcium, Arterial 4.2(L) 4.6 - 5.1 mg/dL 06/14/2025 12:09 PM EDT [facility] Lactate, Arterial 1.2 0.5 - 1.6 mmol/L 06/14/2025 12:09 PM EDT [facility] Body Temperature 37.0 Celsius 06/14/2025 12:09 PM EDT [facility] pH, Temp Corrected, Arterial 7.39 7.31 - 7.42 06/14/2025 12:09 PM EDT [facility] pCO2, Temp Corrected, Arterial 40 32 - 45 mm Hg 06/14/2025 12:09 PM EDT [facility] pO2, Temp Corrected, Arterial 378 >80 mm Hg 06/14/2025 12:09 PM EDT [facility] Inspector Wire Rope ID Cresencio, Vick 06/14/2025 12:09 PM EDT [facility] Blood Whole blood specimen / Unknown 06/14/2025 12:06 PM EDT 06/14/2025 12:09 PM EDT us Phillip Clark MD LAB POINT OF CARE TE ST DOCKED DEVICE UNSOLICITED RESULTS Final Result Performing Organization Address City/State/[facility] Co de Phone Number [facility] [address] [place], [place] [phone] * (ABNORMAL) QPLUS (06/14/2025 11:55 AM EDT) Clot Time 06/14/2025 12:12 PM EDT [facility] Clot Time Ratio 12:12 PM EDT [facility] POCT Clot Stiffness 14.6 13.0 - 33.2 hectoPascals 06/14/2025 12:12 PM EDT [facility] Platelet Contribution to Clot Stiffnes 13.1 11.9 - 29.8 hectoPascals 06/14/2025 12:12 PM EDT [facility] Fibrinogen Contribution to Clot Stiffness 1.5 1.0 - 3.7 hectoPascals 06/14/2025 12:12 PM EDT [facility] Heparinase Clot Time 175(H) 103 - 153 Seconds 06/14/2025 12:12 PM EDT [facility] Inspector Wire Rope ID Ricki Zamarripa 06/14/2025 12:12 PM EDT [facility] Device ID [id number] 06/14/2025 12:12 PM EDT [facility] Whole Blood 06/14/2025 11:5 5 AM EDT 06/14/2025 12:12 PM EDT Narrative [facility] - 06/14/2025 12:[address]: No Clot Detected us Phillip Clark MD LAB POINT OF CARE TE ST DOCKED DEVICE UNSOLICITED RESULTS Final Result Performing Organization Address [facility] Co de Phone Number [facility] [address] [place] [address] * POCT ACT (06/14/2025 11:54 AM EDT) [facility] Signature ACT+ (HIGH RANGE) 510 68 - 600 Seconds 06/14/2025 12:07 PM EDT HEALTHCARE LAB Inspector Wire Rope ID Vick Dupont 06/14/2025 12:07 PM EDT HEALTHCARE LAB ACT Device ID [id number] 06/14/2025 12:07 PM EDT HEALTHCARE LAB Comment 06/14/2025 12:07 PM EDT [facility] Comment: ACT performed by staff [...] UNSOLICITED RESULTS Final Result Performing Organization Address City/[facility]/ZIP Co de Phone Number [facility] [address] LAB [address] [place] [address] * (ABNORMAL) POCT arterial blood gas gem (06/14/2025 11:33 AM EDT) pH, Arterial 7.37 7.31 - 7.42 06/14/2025 11:35 AM EDT [facility] pCO2, Arterial 43 32 - 45 mm Hg 06/14/2025 11:35 AM EDT [facility] pO2, Arterial 380 >80 mm Hg 06/14/2025 11:35 AM EDT [facility] SO2, Arterial 99(H) 94 - 98 % 06/14/2025 11:35 AM EDT [facility] Base Excess, Arterial -0.5 -2 - 3 mmol/L 06/14/2025 11:35 AM EDT [facility] HCO3, Arterial 24.9 22 - 26 mmol/L 06/14/2025 11:35 AM EDT [facility] Total Hemoglobin, Arterial, Whole Blood 11.5(L) 13.7 - 17.5 g/dL 06/14/2025 11:35 AM EDT [facility] Hematocrit, Arterial 35.0(L) 40 - 51.0 % 06/14/2025 11:35 AM EDT [facility] Sodium, Arterial 134(L) 136 - 145 mmol/L 06/14/2025 11:35 AM EDT [facility] Potassium, Arterial 5.6(H) 3.6 - 4.9 mmol/L 06/14/2025 11:35 AM EDT [facility] Chloride, Whole Blood 103 97 - 107 mmol/L 06/14/2025 11:35 AM EDT [facility] Glucose, Arterial 123(H) 74 - 99 mg/dL 06/14/2025 11:35 AM EDT [facility] Ionized Calcium, Arterial 4.2(L) 4.6 - 5.1 mg/dL 06/14/2025 11:35 AM EDT [facility] Lactate, Arterial 1.0 0.5 - 1.6 mmol/L 06/14/2025 11:35 AM EDT [facility] Body Temperature 37.0 Celsius 06/14/2025 11:35 AM EDT [facility] pH, Temp Corrected, Arterial 7.37 7.31 - 7.42 06/14/2025 11:35 AM EDT [facility]ALTHCARE LAB pCO2, Temp Corrected, Arterial 43 32 - 45 mm Hg 06/14/2025 11:35 AM EDT [facility]ALTH[facility] LAB pO2, Temp Corrected, Arterial 380 >80 mm Hg 06/14/2025 11:35 AM EDT [facility]ALTH[facility]ARE LAB Inspector Wire Rope ID Vick Dupont 06/14/2025 11:35 AM EDT [facility]ALTHCARE LAB Blood Whole blood specimen / Unknown 06/14/2025 11:33 AM EDT 06/14/2025 11:35 AM EDT us Phillip Clark MD LAB POINT OF CARE TE ST DOCKED DEVICE UNSOLICITED RESULTS Final Result Performing Organization Address [facility] Co de Phone Number HEALTHCARE LAB [address] [place] [address] * POCT ACT (06/14/2025 11:24 AM EDT) [facility] Signature ACT+ (HIGH RANGE) 520 68 - 600 Seconds 06/14/2025 11:37 AM EDT HEALTHCARE LAB Inspector Wire Rope ID Vick Dupont 06/14/2025 11:37 AM EDT HEALTHCARE LAB ACT Device ID [id number] 06/14/2025 11:37 AM EDT HEALTH[facility]ARE LAB Comment 06/14/2025 11:37 AM EDT [facility] Comment: ACT performed by staff [...] UNSOLICITED RESULTS Final Result Performing Organization Address [facility] Co de Phone Number HEALTHCARE LAB [address] LAB [address] [place] [address] * (ABNORMAL) POCT arterial blood gas gem (06/14/2025 11:03 AM ED) pH, Arterial 7.40 7.31 - 7.42 06/14/2025 11:04 AM [facility] pCO2, Arterial 41 32 - 45 mm Hg 06/14/2025 11:04 AM [facility] pO2, Arterial 406 >80 mm Hg 06/14/2025 11:04 AM [facility] SO2, Arterial 100(H) 94 - 98 % 06/14/2025 11:04 AM [facility] Base Excess, Arterial 0.5 -2 - 3 mmol/L 06/14/2025 11:04 AM [facility] HCO3, Arterial 25.4 22 - 26 mmol/L 06/14/2025 11:04 AM [facility] Total Hemoglobin, Arterial, Whole Blood 11.9(L) 13.7 - 17.5 g/dL 06/14/2025 11:04 AM [facility] Hematocrit, Arterial 36.0(L) 40 - 51.0 % 06/14/2025 11:04 AM [facility] Sodium, Arterial 133(L) 136 - 145 mmol/L 06/14/2025 11:04 AM [facility] Potassium, Arterial 5.3(H) 3.6 - 4.9 mmol/L 06/14/2025 11:04 AM [facility] Chloride, Whole Blood 103 97 - 107 mmol/L 06/14/2025 11:04 AM [facility] Glucose, Arterial 121(H) 74 - 99 mg/dL 06/14/2025 11:04 AM [facility] Ionized Calcium, Arterial 4.2(L) 4.6 - 5.1 mg/dL 06/14/2025 11:04 AM [facility] Lactate, Arterial 1.0 0.5 - 1.6 mmol/L 06/14/2025 11:04 AM [facility] Body Temperature 37.0 Celsius 06/14/2025 11:04 AM [facility] pH, Temp Corrected, Arterial 7.40 7.31 - 7.42 06/14/2025 11:04 AM [facility] pCO2, Temp Corrected, Arterial 41 32 - 45 mm Hg 06/14/2025 11:04 AM EDT HEALTHCARE LAB pO2, Temp Corrected, Arterial 406 >80 mm Hg 06/14/2025 11:04 AM EDT HEALTHCARE LAB Inspector Wire Rope ID Vick Dupont 06/14/2025 11:04 AM EDT [facility]ALTHCARE LAB Blood Whole blood specimen / Unknown 06/14/2025 11:03 AM EDT 06/14/2025 11:04 AM EDT us Phillip Clark MD LAB POINT OF CARE TE ST DOCKED DEVICE UNSOLICITED RESULTS Final Result Performing Organization Address City/[facility]/ZIP Co de Phone Number HEALTHCARE LAB [address] [place] [address] * POCT ACT (06/14/2025 10:57 AM EDT) ACT+ (HIGH RANGE) 569 68 - 600 Seconds 06/14/2025 11:09 AM EDT HEALTHCARE LAB Inspector Wire Rope ID Vick Dupont 06/14/2025 11:09 AM EDT [facility]ALTHCARE LAB ACT Device ID [id number] 06/14/2025 11:09 AM EDT [facility]ALTH[facility]ARE LAB Comment 06/14/2025 11:09 AM EDT [facility] Comment: ACT performed by staff [...] UNSOLICITED RESULTS Final Result Performing Organization Address City/[facility] Co de Phone Number HE[facility]ARE LAB [address] LAB [address] [place] [address] * (ABNORMAL) POCT arterial blood gas gem (06/14/2025 10:33 AM EDT) pH, Arterial 7.39 7.31 - 7.42 06/14/2025 10:34 AM [facility] pCO2, Arterial 41 32 - 45 mm Hg 06/14/2025 10:34 AM [facility] pO2, Arterial 349 >80 mm Hg 06/14/2025 10:34 AM [facility] SO2, Arterial 99(H) 94 - 98 % 06/14/2025 10:34 AM [facility] Base Excess, Arterial -0.2 -2 - 3 mmol/L 06/14/2025 10:34 AM [facility] HCO3, Arterial 24.8 22 - 26 mmol/L 06/14/2025 10:34 AM [facility] Total Hemoglobin, Arterial, Whole Blood 10.9(L) 13.7 - 17.5 g/dL 06/14/2025 10:34 AM [facility] Hematocrit, Arterial 33.0(L) 40 - 51.0 % 06/14/2025 10:34 AM [facility] Sodium, Arterial 135(L) 136 - 145 mmol/L 06/14/2025 10:34 AM [facility] Potassium, Arterial 4.8 3.6 - 4.9 mmol/L 06/14/2025 10:34 AM [facility] Chloride, Whole Blood 103 97 - 107 mmol/L 06/14/2025 10:34 AM [facility] Glucose, Arterial 116(H) 74 - 99 mg/dL 06/14/2025 10:34 AM [facility] Ionized Calcium, Arterial 4.1(L) 4.6 - 5.1 mg/dL 06/14/2025 10:34 AM [facility] Lactate, Arterial 1.3 0.5 - 1.6 mmol/L 06/14/2025 10:34 AM [facility] Body Temperature 37.0 Celsius 06/14/2025 10:34 AM [facility] pH, Temp Corrected, Arterial 7.39 7.31 - 7.42 06/14/2025 10:34 AM [facility] pCO2, Temp Corrected, Arterial 41 32 - 45 mm Hg 06/14/2025 10:34 AM [facility] pO2, Temp Corrected, Arterial 349 >80 mm Hg 06/14/2025 10:34 AM EDT [facility] Inspector Wire Rope ID Vick Dupont 06/14/2025 10:34 AM EDT [facility] Blood Whole blood specimen / Unknown 06/14/2025 10:33 AM EDT 06/14/2025 10:34 AM EDT us Phillip Clark MD LAB POINT OF CARE TE ST DOCKED DEVICE UNSOLICITED RESULTS Final Result Performing Organization Address [facility] Co de Phone Number HEALTHCARE LAB [address] [place] [address] * (ABNORMAL) POCT ACT (06/14/2025 10:26 AM EDT) ACT+ (HIGH RANGE) >600(H) 68 - 600 Seconds 06/14/2025 10:40 AM EDT HEALTHCARE LAB Inspector Wire Rope ID Vick Dupont 06/14/2025 10:40 AM EDT HEALTHCARE LAB ACT Device ID [id number] 06/14/2025 10:40 AM EDT [facility]ALTH[facility]ARE LAB Comment 06/14/2025 10:40 AM EDT [facility] Comment: ACT performed by staff [...] UNSOLICITED RESULTS Final Result Performing Organization Address City/[facility]/ZIP Co de Phone Number [facility] [address] [place] [address] * Surgical Pathology Exam (06/14/2025 10:18 AM EDT) Case Report Surgical Pathology Case: [id number] Authorizing Provider: Phillip Clark MD Collected: 06/14/2025 1018 Ordering Location: [facility] A OPERATING ROOM Received: 06/14/2025 1413 Pathologist: Beth Lake MD Specimen: Heart, aortic valve leaflets 06/15/2025 11:44 AM EDT [facility] Final Diagnosis A. AORTIC VALVE LEAFLETS, REPLACEMENT: - FIBROSIS AND MYXOID DEGENERATION. 06/15/2025 11:44 AM EDT [facility] at 1144 EDT Clinical Information Severe aortic regurgitation [I35.1] 06/15/2025 11:44 AM EDT [facility] Gross Description A. AORTIC VALVE LEAFLETS Received fresh and placed in formalin labeled aortic valve leaflets are 2 white-montez soft cardiac leaflets ranging in size from 2.5-4.0 cm in greatest dimension. Calibrator Barometers sections are submitted in cassette A1. Cold Time: 3h 55m April Santos 06/15/2025 11:44 AM EDT [facility] Tissue Heart structure / Unknown 06/14/2025 10:18 AM EDT 06/14/2025 2:13 PM EDT Comment:Pre-op diagnosis: Severe aortic regurgitation [I35.1] us Phillip Clark MD LAB PATHOLOGY ORDERABLES Fin al Result [facility] [address] [place] [address] * (ABNORMAL) POCT arterial blood gas gem (06/14/2025 10:08 AM EDT) pH, Arterial 7.40 7.31 - 7.42 06/14/2025 10:17 AM EDT HEALTHCARE LAB pCO2, Arterial 40 32 - 45 mm Hg 06/14/2025 10:17 AM EDT [facility] pO2, Arterial 410 >80 mm Hg 06/14/2025 10:17 AM EDT [facility] SO2, Arterial 100(H) 94 - 98 % 06/14/2025 10:17 AM EDT [facility] Base Excess, Arterial 0.0 -2 - 3 mmol/L 06/14/2025 10:17 AM EDT [facility] HCO3, Arterial 24.8 22 - 26 mmol/L 06/14/2025 10:17 AM EDT [facility] Total Hemoglobin, Arterial, Whole Blood 10.1(L) 13.7 - 17.5 g/dL 06/14/2025 10:17 AM EDT [facility] Hematocrit, Arterial 30.0(L) 40 - 51.0 % 06/14/2025 10:17 AM EDT [facility] Sodium, Arterial 133(L) 136 - 145 mmol/L 06/14/2025 10:17 AM EDT [facility] Potassium, Arterial 4.7 3.6 - 4.9 mmol/L 06/14/2025 10:17 AM EDT [facility] Chloride, Whole Blood 104 97 - 107 mmol/L 06/14/2025 10:17 AM EDT [facility] Glucose, Arterial 122(H) 74 - 99 mg/dL 06/14/2025 10:17 AM EDT [facility] Ionized Calcium, Arterial 3.9(L) 4.6 - 5.1 mg/dL 06/14/2025 10:17 AM EDT [facility] Lactate, Arterial 1.5 0.5 - 1.6 mmol/L 06/14/2025 10:17 AM EDT [facility] Body Temperature 37.0 Celsius 06/14/2025 10:17 AM EDT [facility] pH, Temp Corrected, Arterial 7.40 7.31 - 7.42 06/14/2025 10:17 AM EDT [facility] pCO2, Temp Corrected, Arterial 40 32 - 45 mm Hg 06/14/2025 10:17 AM EDT [facility] pO2, Temp Corrected, Arterial 410 >80 mm Hg 06/14/2025 10:17 AM EDT [facility] Inspector Wire Rope ID Vick Dupont 06/14/2025 10:17 AM EDT [facility] Blood Whole blood specimen / Unknown 06/14/2025 10:08 AM EDT 06/14/2025 10:17 AM EDT us Phillip Clark MD LAB POINT OF CARE TE ST DOCKED DEVICE UNSOLICITED RESULTS Final Result [facility] [address] [place] [address] * (ABNORMAL) POCT ACT (06/14/2025 10:04 AM EDT) [facility] ACT+ (HIGH RANGE) >600(H) 68 - 600 Seconds 06/14/2025 10:19 AM EDT [facility] Inspector Wire Rope ID Vick Dupont 06/14/2025 10:19 AM EDT HEALTHCARE LAB ACT Device ID [id number] 06/14/2025 10:19 AM EDT [facility]ALTH[facility]ARE LAB Comment 06/14/2025 10:19 AM EDT [facility] Comment: ACT performed by staff [...] UNSOLICITED RESULTS Final Result Performing Organization Address City/State/[facility] Co de Phone Number HEALTHCARE LAB [address] LAB [address] [place] [address] * POCT ACT (06/14/2025 8:13 AM EDT) ACT+ (HIGH RANGE) 90 68 - 600 Seconds 06/14/2025 8:20 AM EDT HEALTHCARE LAB Inspector Wire Rope ID Kevin Hernandez 06/14/2025 8:20 AM EDT [facility]ALTH[facility]ARE LAB ACT Device ID [id number] 06/14/2025 8:20 AM EDT [facility]ALTH[facility] LAB Comment 06/14/2025 8:20 AM EDT [facility] Comment: ACT performed by staff [...] ST DOCKED DEVICE UNSOLICITED RESULTS Final Result [facility] [address] [place], [place] [id number] [place] [address] LAB [address] [place] [address] * (ABNORMAL) POCT arterial blood gas gem (06/14/2025 8:13 AM EDT) pH, Arterial 7.38 7.31 - 7.42 06/14/2025 8:15 AM EDT [facility] pCO2, Arterial 40 32 - 45 mm Hg 06/14/2025 8:15 AM EDT [facility] pO2, Arterial 91 >80 mm Hg 06/14/2025 8:15 AM EDT [facility] SO2, Arterial 99(H) 94 - 98 % 06/14/2025 8:15 AM EDT [facility] Base Excess, Arterial -1.3 -2 - 3 mmol/L 06/14/2025 8:15 AM EDT [facility] HCO3, Arterial 23.7 22 - 26 mmol/L 06/14/2025 8:15 AM EDT [facility] Total Hemoglobin, Arterial, Whole Blood 14.5 13.7 - 17.5 g/dL 06/14/2025 8:15 AM EDT [facility] Hematocrit, Arterial 44.0 40 - 51.0 % 06/14/2025 8:15 AM EDT [facility] Sodium, Arterial 135(L) 136 - 145 mmol/L 06/14/2025 8:15 AM EDT [facility] Potassium, Arterial 4.1 3.6 - 4.9 mmol/L 06/14/2025 8:15 AM EDT [facility] Chloride, Whole Blood 103 97 - 107 mmol/L 06/14/2025 8:15 AM EDT [facility] Glucose, Arterial 95 74 - 99 mg/dL 06/14/2025 8:15 AM EDT [facility] Ionized Calcium, Arterial 4.7 4.6 - 5.1 mg/dL 06/14/2025 8:15 AM EDT [facility] Lactate, Arterial 0.8 0.5 - 1.6 mmol/L 06/14/2025 8:15 AM EDT [facility] Body Temperature 37.0 Celsius 06/14/2025 8:15 AM EDT [facility] pH, Temp Corrected, Arterial 7.38 7.31 - 7.42 06/14/2025 8:15 AM EDT HEALTHCARE LAB pCO2, Temp Corrected, Arterial 40 32 - 45 mm Hg 06/14/2025 8:15 AM EDT [facility]ALTH[facility] LAB pO2, Temp Corrected, Arterial 91 >80 mm Hg 06/14/2025 8:15 AM EDT [facility] Inspector Wire Rope ID Lb Coreas 06/14/2025 8:15 AM EDT [facility]ALTH[facility] LAB Blood Whole blood specimen / Unknown 06/14/2025 8:13 AM EDT 06/14/2025 8:15 AM EDT us Phillip Clark MD LAB POINT OF CARE TE ST DOCKED DEVICE UNSOLICITED RESULTS Final Result Performing Organization Address City/[facility] Co de Phone Number HEALTHCARE LAB [address] [place] [address] * Type and Screen (06/14/2025 6:27 AM EDT) Pathologist [facility] ABO/Rh O Positive 06/14/2025 6:37 AM EDT [facility] Antibody Screen Negative 06/14/2025 6:37 AM EDT [facility] Specimen Expiration 06/17/2025 23:59 06/14/2025 6:37 AM EDT [facility] Blood Venous blood specimen / Unknown Venipuncture / Unknown 06/14/2025 6:27 AM EDT 06/14/2025 6:37 AM EDT Phillip Clark MD LAB BLOOD BANK TEST ORDERABL ES Final Result Performing Organization Address [facility] Co de Phone Number BLOOD BANK [address] [place] [address], [place] * POCT glucose meter (06/14/2025 6:23 AM EDT) [facility] POCT Glucose 93 74 - 99 mg/dL [...] Comment 06/14/2025 6:24 AM EDT HEALTHCARE LAB Inspector Wire Rope ID Kassi Sinha 06/14/2025 6:24 AM EDT HEALTHCARE LAB Device ID [id number] 06/14/2025 6:24 AM EDT HEALTHCARE LAB Specimen Type POC Venous 06/14/2025 6:24 AM EDT [facility] Blood Venous blood specimen / Unknown 06/14/2025 6:23 AM EDT 06/14/2025 6:24 AM EDT Phillip Clark MD LAB POINT OF CARE TE ST DOCKED DEVICE UNSOLICITED RESULTS Final Result Performing Organization Address City/State/[facility] Co de Phone Number HEALTHCARE LAB [address] [place] [address] documented in this encounter Visit Diagnoses Diagnosis Aortic valve regurgitation- Primary Aortic valve disorders Severe aortic regurgitation Other secondary hypertension S/P AVR Severe aortic regurgitation BMI 30.0-30.9,adult High cholesterol Pure hypercholesterolemia Diabetes Type II or unspecified type diabetes mellitus without mention of complication, not stated as uncontrolled Hypertension Unspecified essential hypertension CAD (coronary artery disease) Coronary atherosclerosis of unspecified type of vessel, [place] or graft History of coronary angioplasty with [...] at 1956, Until 06/20/25 at 1627, Routine, After blood draws and [...] Molina RN)0821 (Given - Provider: Brittaney Dumas, RN)1235 (Given - Provider: Brittaney Dumas, RN)1609 [...] 0821 (Given - Provider: Brittaney Dumas, HESHAM) ezetimibe (Zetia) tablet 10 mg 10 mg, Oral, Daily, First dose on Fri06/16/25 at 1015, Until Discontinued, Routine 0821 (Given - Provider: Brittaney Dumas, HESHAM) 0847 (Given - Provider: Vicente Hussein, [...] RN) 2016 (Given - Provider: Any Garcia HESHAM) methocarbamol (Robaxin) tablet 500 mg 500 [...] add comment - Comment: dose given by manufacturing shift supervisor rn @ 06[facility] Joseph instructed teletypewriter installer to hold 0900 dose)2003 (Given - Provider: [...] Routine 2003 (Given - Provider: Lori Molina, RN) 2016 (Given - Provider: Any Garcia, HESHAM) senna (Senokot) tablet 17.2 mg 17.2 mg, Oral, 2 times daily, First dose (after last modification) on Fri06/17/25 at 2100, Until Discontinued, Routine, Recovery(Phase II-Outpatient)/On Unit(Inpatient) 0821 (Given - Provider: Brittaney Dumas, RN)2002 (Given - Provider: Lori Molina RN) [...] Brittaney Dumas, HESHAM)2004 (Given - Provider: Lori Molina, HESHAM) 0837 (Given - Provider: Vicente Hussein, HESHAM)1957 (Given - Provider: Any Garcia, HESHAM) 0855 (Given - Provider: Agustina Mello, HESHAM) warfarin (Coumadin) tablet 4 mg 4 mg, Oral, Daily, First dose (after last modification) on Fri06/18/25 at 1700, Until Discontinued, Routine 1758 (Given - Provider: Brittaney Dumas, HESHAM) 1655 (Given - Provider: Vicente Hussein, HESHAM) [...] 043 (See Alternative - Provider: Lori Molina RN)1001 [...] documented as of this encounter Care Teams 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
--- OUTSIDE RECORDS SUMMARY | 2025-06-29 12:46 | XMS_ITS | Encounter Summary ---
Author Organization [facility] Address [address] [place] [address] Care Team Providers Care Loader Malt House Name Role Phone Kamran Singh MD Primary Care Provider +1- [phone] Encounter Details Date Type Department Care Team [...] Description 07/07/2025 2:40 PM EST Office Visit [place] [facility] [address], [address] [place] [address] Phillip Clark MD [address] [place] [address] documented as of this encounter Visit Diagnoses Not on filedocumented in this encounter Additional Health Concerns Assessment Noted Time A fall risk assessment has been complete d for the patient 06/09/2025 12:15 PM EDT A Body Mass Index follow-up plan has been documented for the patient 06/09/2025 2:00 PM EDT documented as of this encounter Care Teams Loader Malt House Relationship Specialty Start Date End Date Kamran Singh MD [address] [place] [address] PCP - General 02/28/25 documented as of this encounter
--- OUTSIDE RECORDS SUMMARY | 2025-06-29 12:46 | XMS_ITS | Encounter Summary ---
Author Organization [facility] Address [address] [place] [id number] Care Team Providers Care Hand Zipper Trimmer Name Role Phone Kamran Singh MD Primary Care Provider +1- [phone] Encounter Details Date Type Department Care Team [...] a skilled nursing (including now)? No 06/15/2025 [facility] Utilities Answer Date Recorded In [...] Clinic Cardiothoracic [address], [address] [place] [address] Phillip Clark MD [address] [place] [address] documented as of this encounter Visit Diagnoses Not on filedocumented in this encounter Additional Health Concerns Assessment Noted Time A fall risk assessment has been complete d for the patient 06/09/2025 12:15 PM EDT A Body Mass Index follow-up plan has been documented for the patient 06/20/2025 10:30 AM EDT documented as of this encounter Care Teams Hand Zipper Trimmer Relationship Specialty Start Date End Date Kamran Singh MD [address] [facility] [place] [address] PCP - General 02/28/25 documented as of this encounter
--- OUTSIDE RECORDS SUMMARY | 2025-06-29 12:46 | XMS_ITS | Encounter Summary ---
Author Organization [facility] Address [address] [place] [address] Care Team Providers Care Middle Card Tender Name Role Phone Kamran Singh MD Primary Care Provider +1- [phone] Encounter Details Date Type Department Care Team [...] Cardiothoracic [address], [address] [place] [address] Phillip Clark MD [address] [place] [address] documented as of this encounter Visit Diagnoses Not on filedocumented in this encounter Additional Health Concerns Assessment Noted Time A fall risk assessment has been complete d for the patient 05/05/2025 9:58 AM EDT A Body Mass Index follow-up plan has been documented for the patient 05/05/2025 10:51 AM EDT documented as of this encounter Care Teams Middle Card Tender Relationship Specialty Start Date End Date Kamran Singh MD [address] [place] [address] PCP - General 02/28/25 documented as of this encounter
--- OUTSIDE RECORDS SUMMARY | 2025-06-29 12:46 | XMS_ITS | Encounter Summary ---
Author Organization [facility] Address [address] [place] [id number] Care Team Providers Care Child Abuse Worker Name Role Phone Kamran Singh MD Primary Care Provider +1- [phone] Encounter Details Date Type Department Care Team [...] time in the past 12 m [facility], were you homeless or living in a snf (including now)? No 06/15/2025 [facility] Utilities Answer Date Recorded In [...] Office Visit [place] [facility] [address], [address] [place] [address] Phillip Clark MD [address] [place] [address] documented as of this encounter Visit Diagnoses Not on filedocumented in this encounter Additional Health Concerns Assessment Noted Time A fall risk assessment has been complete d for the patient 06/09/2025 12:15 PM EDT A Body Mass Index follow-up plan has been documented for the patient 06/20/2025 10:30 AM EDT documented as of this encounter Care Teams Child Abuse Worker Relationship Specialty Start Date End Date Kamran Singh MD [address] [place] [address] PCP - General 02/28/25 documented as of this encounter
--- OUTSIDE RECORDS SUMMARY | 2025-06-29 12:46 | XMS_ITS | Encounter Summary ---
Author Organization [facility] Address [address] [place] [address] Care Team Providers Care Commercial Reporter Name Role Phone Kamran Singh MD Primary Care Provider +1- [phone] Encounter Details Date Type Department Care Team [...] Description 07/07/2025 2:40 PM EST Office Visit [place] [facility] [address], [address] [place] [address] Phillip Clark MD [address] [place] [address] documented as of this encounter Visit Diagnoses Not on filedocumented in this encounter Additional Health Concerns Assessment Noted Time A fall risk assessment has been complete d for the patient 05/05/2025 9:58 AM EDT A Body Mass Index follow-up plan has been documented for the patient 05/05/2025 10:51 AM EDT documented as of this encounter Care Teams Commercial Reporter Relationship Specialty Start Date End Date Kamran Singh MD [address] [place] [address] PCP - General 02/28/25 documented as of this encounter
--- OUTSIDE RECORDS SUMMARY | 2025-06-29 12:46 | XMS_ITS | Encounter Summary ---
Author Organization [facility] Address [address] [place] [id number] Care Team Providers Care Silviculturist Name Role Phone Kamran Singh MD Primary Care Provider +1- [phone] Encounter Details Date Type Department Care Team [...] any time in the past 12 m [facility], were you homeless or living in a intermediate (including now)? No 06/15/2025 [facility] Utilities Answer Date Recorded In the [...] Office Visit [place] [facility] [address], [address] [place] [address] Phillip Clark MD [address] [place] [address] documented as of this encounter Visit Diagnoses Not on filedocumented in this encounter Additional Health Concerns Assessment Noted Time A fall risk assessment has been complete d for the patient 06/09/2025 12:15 PM EDT A Body Mass Index follow-up plan has been documented for the patient 06/20/2025 10:30 AM EDT documented as of this encounter Care Teams Silviculturist Relationship Specialty Start Date End Date Kamran Sinhg MD [address] [place] [address] PCP - General 02/28/25 documented as of this encounter
--- OUTSIDE RECORDS SUMMARY | 2025-06-29 12:46 | XMS_ITS | Encounter Summary ---
Author Organization [facility] Address [address] [place] [address] Care Team Providers Care Hothouse Worker Name Role Phone Kamran Singh MD Primary Care Provider +1- [phone] Encounter Details Date Type Department Care Team (Late st Contact Info) Description 01/28/2025 Orders Only External Location [address] [place] [address] Provider, External Social History Tobacco Use Types [...] Description 07/07/2025 2:40 PM EST Office Visit [place] [facility] [address], [address] [place] [address] Phillip Clark MD [address] [place] [address] documented as of this encounter Procedures Procedure [...] on filedocumented in this encounter Care Teams Hothouse Worker Relationship Specialty Start Date End Date Kamran Singh MD [address] [place] [facility] [place] [address] PCP - General 02/28/25 documented as of this encounter
--- OUTSIDE RECORDS SUMMARY | 2025-06-29 12:46 | XMS_ITS | Encounter Summary ---
Author Organization [facility] Address [address] [place] [address] Care Team Providers Care Podiatric Medicine Doctor Name Role Phone Kamran iSngh MD Primary Care Provider +1- [phone] Encounter Details Date Type Department Care Team [...] Clinic Cardiothoracic [address], [address] [place] [address] Phillip Clark MD [address] [place] [address] documented as of this encounter Visit Diagnoses Not on filedocumented in this encounter Additional Health Concerns Assessment Noted Time A fall risk assessment has been complete d for the patient 05/05/2025 9:58 AM EDT A Body Mass Index follow-up plan has been documented for the patient 05/05/2025 10:51 AM EDT documented as of this encounter Care Teams Podiatric Medicine Doctor Relationship Specialty Start Date End Date Kamran Singh MD [address] [place] [address] PCP - General 02/28/25 documented as of this encounter
--- OUTSIDE RECORDS SUMMARY | 2025-06-29 12:46 | XMS_ITS | Encounter Summary ---
Author Organization [facility] Address [address] [place] [id number] Care Team Providers Care Voice Network Administrator Name Role Phone Kamran Singh MD Primary Care Provider +1- [phone] Encounter Details Date Type Department Care Team [...] any time in the past 12 m [facility], were you homeless or living in a penitentiary (including now)? No 06/15/2025 [facility] Utilities Answer Date Recorded In the [...] Office Visit [place] [facility] [address], [address] [place] [address] Phillip Clark MD [address] [place] [address] documented as of this encounter Visit Diagnoses Not on filedocumented in this encounter Additional Health Concerns Assessment Noted Time A fall risk assessment has been complete d for the patient 06/09/2025 12:15 PM EDT A Body Mass Index follow-up plan has been documented for the patient 06/20/2025 10:30 AM EDT documented as of this encounter Care Teams Voice Network Administrator Relationship Specialty Start Date End Date Kamran Singh MD [address] [place] [address] PCP - General 02/28/25 documented as of this encounter
--- OUTSIDE RECORDS SUMMARY | 2025-06-29 12:46 | XMS_ITS | Encounter Summary ---
Author Organization [facility] Address [address] [place] [address] Care Team Providers Care Itinerant Teacher Assistant Name Role Phone Kamran Singh MD Primary Care Provider +1- [phone] Encounter Details Date Type Department Care Team (Late Contact Info) Description 01/04/2025 Orders Only External Location [address] [place] [address] Provider, External Social History Tobacco Use Types [...] Description 07/07/2025 2:40 PM EST Office Visit [place] [facility] [address], [address] [place] [address] Phillip Clark MD [address] [place] [address] documented as of this encounter Procedures Procedure [...] on filedocumented in this encounter Care Teams Itinerant Teacher Assistant Relationship Specialty Start Date End Date Kamran Singh MD [address] [facility] [place] [address] PCP - General 02/28/25 documented as of this encounter
--- OUTSIDE RECORDS SUMMARY | 2025-06-29 12:48 | XMS_ITS | Encounter Summary ---
Author Organization [facility] Address [address] [place] [id number] Care Team Providers Care Government Gauger Name Role Phone Kamran Singh MD Primary Care Provider +1- [phone] Encounter Details Date Type Department Care Team [...] time in the past 12 m [facility], were you homeless or living in a penitentiary (including now)? No 06/15/2025 [facility] Utilities Answer Date Recorded In the past [...] Clinic Cardiothoracic [address], [address] [place] [address] Phillip Clark MD [address] [place] [address] documented as of this encounter Visit Diagnoses Not on filedocumented in this encounter Additional Health Concerns Assessment Noted Time A fall risk assessment has been complete d for the patient 06/09/2025 12:15 PM EDT A Body Mass Index follow-up plan has been documented for the patient 06/20/2025 10:30 AM EDT documented as of this encounter Care Teams Government Gauger Relationship Specialty Start Date End Date Kamran Singh MD [address] [place] [address] PCP - General 02/28/25 documented as of this encounter
--- OUTSIDE RECORDS SUMMARY | 2025-06-29 12:48 | XMS_ITS | Encounter Summary ---
Author Organization [facility] Address [address] [place] [id number] Care Team Providers Care Cable Hooker Name Role Phone Kamran Singh MD Primary Care Provider +1- [phone] Encounter Details Date Type Department Care Team [...] in a jail (including now)? No 06/15/2025 [facility] Utilities Answer Date Recorded In the [...] Clinic Cardiothoracic [address], [address] [place] [address] Phillip Clark MD [address] [place] [address] documented as of this encounter Visit Diagnoses Not on filedocumented in this encounter Additional Health Concerns Assessment Noted Time A fall risk assessment has been complete d for the patient 06/09/2025 12:15 PM EDT A Body Mass Index follow-up plan has been documented for the patient 06/20/2025 10:30 AM EDT documented as of this encounter Care Teams Cable Hooker Relationship Specialty Start Date End Date Kamran Singh MD [address] [facility] [place] [address] PCP - General 02/28/25 documented as of this encounter
--- OUTSIDE RECORDS SUMMARY | 2025-06-29 12:48 | XMS_ITS | Encounter Summary ---
Author Organization [facility] Address [address] [place] [id number] Care Team Providers Care Networking Specialist Name Role Phone Kamran Singh MD Primary Care Provider +1- [phone] Encounter Details Date Type Department Care Team [...] in a penitentiary (including now)? No 06/15/2025 [facility] [...] Clinic Cardiothoracic [address], [address] [place] [address] Phillip Clark MD [address] [place] [address] documented as of this encounter Visit Diagnoses Not on filedocumented in this encounter Additional Health Concerns Assessment Noted Time A fall risk assessment has been complete d for the patient 06/09/2025 12:15 PM EDT A Body Mass Index follow-up plan has been documented for the patient 06/20/2025 10:30 AM EDT documented as of this encounter Care Teams Networking Specialist Relationship Specialty Start Date End Date Kamran Singh MD [address] [place] [address] PCP - General 02/28/25 documented as of this encounter
--- OUTSIDE RECORDS SUMMARY | 2025-06-29 12:49 | XMS_ITS | Clinical Summary ---
Author Organization [facility] Address [address] [place] [id number] Care Team Providers Care Rubber Printing Machine Operator Name Role Phone Kamran Singh MD Primary Care Provider +1- [phone] Allergies Active Allergy Reactions Criticality Noted Date [...] 2 tablets by mouth every morning. Under [facility] law, monthly prescriptions (30 days) can [...] EDT Surgery [facility] OPERATING ROOM [address] [place] [address] Phillip Clark MD Aortic valve replacement [89257 (CPT )] 06/14/2025 7:45 AM EDT Anesthesia Event [facility] OPERATING ROOM [address] [place] [address] Jean Claude Staley MD Burns, Jonathon R, DO 06/14/2025 5:18 AM EDT - 06/20/2025 2:25 PM EDT Hospital Encounter [facility] A Inpatient [address] [place] [address] Phillip Clark MD Other secondary hypertension (Primary Dx); Severe aortic regurgitation; S/P AVR Discharge Disposition: Home or Self Care 06/14/2025 Travel 06/09/2025 1:42 PM EDT - 06/09/2025 11:59 PM EDT Hospital [facility] [address], [address] [place] [address] Severe aortic regurgitation Discharge Disposition: Home or Self Care 06/09/2025 12:20 PM EDT Office Visit [facility] Cardiothoracic [address], [address] [place] [address] Phillip Clark MD Severe aortic regurgitation (Primary Dx) 06/09/2025 Travel 06/07/2025 8:30 AM EDT Pre-Admission Testing [facility] Pre-op Clinic [address], [address] [place] [address] 06/07/2025 Travel 06/02/2025 Travel 05/05/2025 10:20 AM EDT Office Visit [facility] Cardiothoracic [address], [address] [place] [address] Phillip Clark MD Severe aortic regurgitation (Primary Dx) 05/05/2025 Travel 04/28/2025 Travel 04/14/2025 1:00 PM EDT Office Visit [facility] Cardiothoracic [address], [address] [place] [address] Phillip Clark MD Ascending aortic aneurysm, unspecified whether ruptured (CMS/HCC) (Primary Dx); Aortic valve insufficiency, etiology of cardiac valve disease unspecified 04/14/2025 7:13 AM EDT - 04/14/2025 11:59 PM EDT Hospital Encounter [facility] Radiology [address] [place] [address] Ascending aortic aneurysm, unspecified whether ruptured (CMS/HCC) [...] a senior living (including now)? No 06/15/2025 [facility] Utilities Answer Date Recorded In the [...] Description 07/07/2025 2:40 PM EST [facility] [address], [facility] [address] [place] [address] Phillip Clark MD [address] [facility] [address] [place] [address] Health Maintenance Due Date Last Done Comments [facility]-Hepatitis C Screening 1955 [facility]-Medicare Annual Wellness (AWV) 1955 [facility]-/Child/Adol SDOH Screenings 1955 Diabetes: Dental Exam 1965 [facility]-DTaP,Tdap,and Td Vaccines (1 - Tdap) 1974 [facility]-Pneumococcal Vaccine: 50+ Years (1 of 2 - PCV) 1974 CT Colonography 2000 Colonoscopy 2000 FIT-DNA 2000 FIT 2000 FOBT 2000 Sigmoidoscopy 2000 [facility]-Colorectal Cancer Screening 2000 [facility]-Zoster Vaccines (1 of 2) 2005 [facility]-RSV Vaccine: 60+ Years or (1 - Risk 60-74 years 1-dose series) 2015 [id number] Vaccine ( season) 2025 06/22/2022, 01/19/2022, 07/12/2021, Additional history exists [facility]-Influenza Vaccine (#1) 2025 [facility]-Diabetes: Hemoglobin A1C 12/07/2025 06/09/2025 [facility]- SDOH Screenings 12/14/2025 [facility]-Adult SDOH Screenings 12/14/2025 06/15/2025 [facility]-Depression Screening 03/10/2026 03/10/2025 [facility]-Obesity Intervention Completed 025, 05/05/2025, 05/05/2025, Additional [...] this topic Medical Devices Implanted Type Area Aerospace Engineer Officer Armament Device Identifier Shelf Expiration Date Model / Serial / Lot Graft Ptch 6x6in [id number] [place] - [id number] Implanted:Qty: 1 on 06/14/2025 by Phillip Clark MD at [facility] N/A: Heart [employer] Per[employer]-[id number] / / Valve Atrial 25mm Rotatabl Cuf Std Ptfe - [id number] - [id number] Implanted:Qty: 1 on 06/14/2025 by Phillip Clark MD at [facility] N/A: Heart [employer]-[id number] 03/28/2030 [id number] / [id number] / [id number] Procedures Procedure Name Priority Date/Time Associated Diagnosis [...] IMAGING PLACEHOLDER Routine 06/14/2025 8:32 AM EDT RI INSERT/PLACE FLOW DIRECT CATH Routine 06/14/2025 8:32 AM EDT ANESTHESIA ULTRASOUND GUIDED Routine 06/14/2025 8:32 AM EDT PB ANESTHESIA NON-TIMED PROCEDURE PLACEHOLDER Routine 06/14/2025 8:32 AM EDT RI AN CENTRAL LINE DOUBLE LUMEN Routine 06/14/2025 8:32 AM EDT PB ANESTHESIA PLACEHOLDER Routine 06/14/2025 8:16 AM EDT RI AN ELECTIVE ENDOTRACHEAL AIRWAY Routine 06/14/2025 8:16 AM EDT POCT ACT UNSOLICITED RESULTS Routine 06/14/2025 8:13 AM EDT POCT ARTERIAL BLOOD GAS GEM UNSOLICITED RESULTS Routine 06/14/2025 8:13 AM EDT PB ANESTHESIA NON-TIMED PROCEDURE PLACEHOLDER Routine 06/14/2025 8:08 AM EDT RI -AORT GRF W/CARD BYP [...] [facility] [address] [place] [address] * (ABNORMAL) CBC (06/20/2025 1:52 AM EDT) [...] ORDERABLES Final R esult Performing Organization Address City/[facility]/ZIP Co de Phone Number [facility] [address] [place] [address] * Phosphorus (06/20/2025 1:52 AM EDT) Only [...] esult Performing Organization Address [facility] Co de Phone Number [facility] [address] [place] [address] * Magnesium (06/20/2025 1:52 AM EDT) Only the most recent of10 resultswithin the time period is included. Magnesium, Plasma 2.2 1.9 - 2.4 mg/dL 06/20/2025 2:23 AM EDT [facility] Blood Venous blood specimen / Unknown Venipuncture / Unknown 06/20/2025 1:52 AM EDT 06/20/2025 1:59 AM EDT Phillip Clark MD LAB BLOOD ORDERABLES Final R esult Performing Organization Address City/[facility] Co de Phone Number [facility] [address] [place] [address] * (ABNORMAL) Basic metabolic panel (06/20/2025 1:52 [...] esult [facility] [address] [place] [address] * PERIPHERAL IV (SMARTFORM LINK) (06/20/2025 1:47 [...] QTC Interval 478 ms MUSE ECG P [place] 43 degrees MUSE ECG R [place] -30 degrees MUSE ECG T Wave [place] 36 degrees MUSE ECG Diagnosis Poor data quality, interpretation may be adversely affected MUSE ECG Diagnosis Sinus rhythm with premature supraventricular complexes and with occasional premature ventricular complexes MUSE ECG Diagnosis Left axis deviation MUSE ECG Diagnosis Poor R-wave progression MUSE ECG Diagnosis Abnormal ECG MUSE ECG Diagnosis Recommend repeat ECG MUSE ECG Diagnosis MUSE ECG Diagnosis Confirmed by Aman Coe ([id number]) on 06/19/2025 1:33:10 PM MUSE ECG 06/19/2025 [...] City/State/[facility] Co de Phone Number [facility] [address] [place] [address] * RI CRITICAL CARE, E/M 30-74 MINUTES [...] Comment 06/16/2025 8:45 AM EDT HEALTHCARE LAB Labeler ID Fariba Blanton 025 8:45 AM EDT [facility] Device ID [id number] 06/16/2025 8:45 AM EDT [facility] Specimen Type POC Arterial 06/16/2025 8:45 AM EDT [facility] Blood Arterial blood specimen / Unknown 06/16/2025 8:40 AM EDT 06/16/2025 8:45 AM EDT us Phillip Clark MD LAB POINT OF CARE TE ST DOCKED DEVICE UNSOLICITED RESULTS Final Result [facility] [address] [place] [address] * XR Abdomen 1 View (06/16/2025 1:20 [...] [facility] [address] [place] [address] * RI CRITICAL CARE, E/M 30-74 MINUTES [...] CBC and Differential (06/15/2025 8:18 AM EDT) [facility] WBC Count 12.56(H) 3.70 - 10.30 10*3/uL [...] esult Performing Organization Address [facility] [place] [address] * Ionized calcium, whole blood (06/15/2025 6:40 AM EDT) [facility] Ionized Calcium, Whole Blood 4.6 4.6 - 5.1 mg/dL LAB HEMATOLOGY METHOD 06/15/2025 6:50 AM EDT [facility] Blood Arterial blood specimen / Unknown Venipuncture / Unknown 06/15/2025 6:40 AM EDT 06/15/2025 6:48 AM EDT Phillip Clark MD LAB BLOOD ORDERABLES Final R esult Performing Organization Address [facility] [place] [address] * RI CRITICAL CARE, ADDL 30 MIN, [...] ORDERABLES Final R esult Performing Organization Address City/[facility] Co de Phone Number [facility] [address] [place] [address] * (ABNORMAL) Hemoglobin (06/15/2025 12:20 AM EDT) Only the most recent of2 resultswithin the time period is included. HGB 13.6(L) 13.7 - 17.5 g/dL LAB HEMATOLOGY METHOD 06/15/2025 12:36 AM EDT [facility] Blood Venous blood specimen / Unknown Venipuncture / Unknown 06/15/2025 12:20 AM EDT 06/15/2025 12:26 AM EDT Phillip Clark MD LAB BLOOD ORDERABLES Final R esult Performing Organization Address [facility] Co de Phone Number [facility] [address] [place] [address] * Hematocrit (06/15/2025 12:20 AM EDT) Only the most recent of2 resultswithin the time period is included. HCT 41.0 40.0 - 51.0 % LAB HEMATOLOGY METHOD 06/15/2025 12:36 AM EDT [facility] Blood Venous blood specimen / Unknown Venipuncture / Unknown 06/15/2025 12:20 AM EDT 06/15/2025 12:26 AM EDT Phillip Clark MD LAB BLOOD ORDERABLES Final R esult Performing Organization Address City/[facility] Co de Phone Number [facility] [address] [place] [address] * Potassium, Plasma (06/15/2025 12:20 AM EDT) [...] esult [facility] [address] [place] [address] * RI CRITICAL CARE, E/M 30-74 MINUTES [...] 3:00 PM EDT 06/14/2025 3:23 PM EDT Phillip Clark MD LAB BLOOD ORDERABLES Final R esult Performing Organization Address [facility]/[place] [address] * Eli auris Surveillance by PCR (06/14/2025 2:37 PM EDT) Eli auris PCR Result Not Detected Not Detected 06/15/2025 12:46 PM EDT [facility] Swab (Axilla and Groin) Non-blood Collection / Unknown 06/14/2025 2:37 PM EDT 06/14/2025 3:10 PM EDT Narrative [facility] - 06/15/2025 12:46 PM EDT This PCR assay was developed and its performance characteristics determined by [facility] as appropriate for clinical purposes. This assay has not been cleared or approved by the FDA, but is performed in a CLIA regulated laboratory that is qualified to perform high-complexity testing. Phillip Clark MD LAB MICROBIOLOGY - GENERAL O RDERABLES Final Result Performing Organization Address [facility] [place] [address] * Multi Drug Resistance Test (06/14/2025 2:37 PM EDT) Culture No growth at day 1 06/15/2025 4:03 PM EDT [facility] Swab (Nares and Smita Rectal) Non-blood Collection / Unknown 06/14/2025 2:37 PM EDT 06/14/2025 3:10 PM EDT Narrative [facility] - 06/15/2025 4:03 PM EDT This test was developed and its performance characteristics determined by the [facility]. Although the media is FDA-approved, it is not FDA-approved for all specimen types submitted. The FDA has determined that such clearance or approval is not necessary. This test is used for surveillance purposes. It should not be regarded as investigational or for research. The [facility] is certified under the Clinical Laboratory Improvement Amendments of 1988 (CLIA-88) as qualified to perform high complexity clinical laboratory testing. us Phillip Clark MD LAB MICROBIOLOGY - GENERAL O RDERABLES Final Result Performing Organization Address City/[facility] [place] [address] * APTT (06/14/2025 2:36 PM EDT) Only [...] esult Performing Organization Address [facility] [place] [address] * PB POINT OF CARE IMAGING PLACEHOLDER [...] supine Prep: ChloraPrep Patient monitoring: heart rate, lining presser and continuous pulse ox Anesthesia block type: [...] mcg/kg/min) RV: same as baseline Aortic valve: toh[place]ham valve replaced by mechanical valve. New valve [...] HEALTHCARE LAB Total Hemoglobin, Arterial, Whole Blood .5 13.7 - 17.5 g/dL 06/14/2025 2:02 PM EDT [facility] Hematocrit, Arterial 44.0 40 - 51.0 % 06/14/2025 2:02 PM EDT [facility] Sodium, Arterial 136 136 - 145 mmol/L 06/14/2025 2:02 PM EDT [facility] Potassium, Arterial 3.4(L) 3.6 - 4.9 mmol/L 06/14/2025 2:02 PM EDT [facility] Chloride, Whole Blood 105 97 - 107 mmol/L 06/14/2025 2:02 PM EDT [facility] Glucose, Arterial 138(H) 74 - 99 mg/dL 06/14/2025 2:02 PM EDT [facility] Ionized Calcium, Arterial 4.9 4.6 - 5.1 mg/dL 06/14/2025 2:02 PM EDT [facility] Lactate, Arterial 4.2(H) 0.5 - 1.6 mmol/L 06/14/2025 2:02 PM EDT [facility] Body Temperature 37.0 Celsius 06/14/2025 2:02 PM EDT [facility] pH, Temp Corrected, Arterial 7.35 7.31 - 7.42 06/14/2025 2:02 PM EDT [facility] pCO2, Temp Corrected, Arterial 38 32 - 45 mm Hg 06/14/2025 2:02 PM EDT [facility] pO2, Temp Corrected, Arterial 376 >80 mm Hg 06/14/2025 2:02 PM EDT [facility] Labeler ID Ricki Zamarripa 06/14/2025 2:02 PM EDT [facility] Blood Whole blood specimen / Unknown 06/14/2025 2:00 PM EDT 06/14/2025 2:02 PM EDT us Phillip Clark MD LAB POINT OF CARE TE ST DOCKED DEVICE UNSOLICITED RESULTS Final Result [facility] [address] [place] [address] * POCT ACT (06/14/2025 12:43 PM EDT) Only the most recent of7 resultswithin the time period is included. ACT+ (HIGH RANGE) 98 68 - 600 Seconds 06/14/2025 12:49 PM EDT HEALTHCARE LAB Labeler ID Vick Dupont 06/14/2025 12:49 PM EDT HEALTHCARE LAB ACT Device ID [id number] 06/14/2025 12:49 PM EDT HEALTHCARE LAB Comment [...] Co de Phone Number HEALTHCARE LAB [address] LAB [address] [place] [address] * (ABNORMAL) QPLUS (06/14/2025 11:55 AM EDT) [...] Seconds 06/14/2025 12:12 PM EDT HEALTHCARE LAB Labeler ID Ricki Zamarripa 06/14/2025 12:12 PM EDT HEALTHCARE LAB Device ID [id number] 06/14/2025 12:12 PM EDT [facility] Whole Blood 06/14/2025 11:5 5 AM EDT 06/14/2025 12:12 PM EDT Narrative [facility] - 06/14/2025 12:[address]: No Clot Detected us Phillip Clark MD LAB POINT OF CARE TE ST DOCKED DEVICE UNSOLICITED RESULTS Final Result [facility] [address] [place] [address] * Surgical Pathology Exam (06/14/2025 10:18 AM EDT) Case Report Surgical Pathology Case: [id number] Authorizing Provider: Phillip Clark MD Collected: 06/14/2025 1018 Ordering Location: [facility] A OPERATING ROOM Received: 06/14/2025 [...] size from 2.5-4.0 cm in greatest dimension. Logistics Planning Manager sections are submitted in cassette A1. Cold Time: 3h 55m April Levon Danielle 06/15/2025 11:44 AM EDT [facility] Tissue Heart structure / Unknown 06/14/2025 10:18 AM EDT 06/14/2025 2:13 PM EDT Comment:Pre-op diagnosis: Severe aortic regurgitation [I35.1] us Phillip Clark MD LAB PATHOLOGY ORDERABLES Fin al Result [facility] [address] [place] [address] * RI AN CENTRAL LINE DOUBLE LUMEN, PB ANESTHESIA NON-TIMED PROCEDURE PLACEHOLDER, ANESTHESIA ULTRASOUND GUIDED, RI INSERT/PLACE FLOW DIRECT CATH, PB POINT OF [...] MD ANESTHESIA ORDERABLES Final Resu lt * RI AN ELECTIVE ENDOTRACHEAL AIRWAY, PB ANESTHESIA PLACEHOLDER [...] - 06/14/2025 8:08 AM EDT Jean Claude Satley MD 06/14/2025 10:14 AM Arterial Line: Date/Time: [...] ORDERABL ES Final Result Performing Organization Address City/State/[facility] Co de Phone Number BLOOD BANK [address] [place] [address], [place] * Type & Screen, 30 Days [...] Result Performing Organization Address [facility]/ZIP Co de Phone Number BLOOD BANK [address] * (ABNORMAL) Hemoglobin A1c (06/09/2025 1:39 [...] Adults <6.0% Children and Adolescents <7.5% Source: [employer]. Standards of medical care in diabetes,2017. Diabetes Care.2017:40 (suppl 1):S1-S135. us Phillip Clark MD LAB BLOOD ORDERABLES Final R esult [facility] [address] [place] [address] * Comprehensive Metabolic Panel, Plasma (06/09/2025 1:39 [...] [facility] [address] [place] [address] * CT Chest wo IV Contrast (04/14/2025 [...] Gordon MD on 04/14/2025 8:13 AM Phillip Calrk MD IMG CT PROCEDURES Final Resu lt from Last 3 Months Insurance [facility] [place] [address] Advance Directives * Full Code (Latest Code Status on File) Date Activated Date Inactivated Comments 06/14/2025 2:35 PM 06/20/2025 4:27 PM Question Answer Comments I have reviewed the capacity from the link above and, if needed, have updated to appropriate status: Yes Care Teams Rubber Printing Machine Operator Relationship Specialty Start Date End Date Kamran Singh MD [address] [place] [address] PCP - General 02/28/25
--- NOTE | 2025-06-29 13:00 | CA_ITS ---
APPROVED REPORT EXAM: Limited 2D and color flow Echocardiogram Young Adult Librarian: CORNELIUS Morel, RVS Ht: 5 ft 7 in Wt: 187lbs BSA: 1.97 BP: 138/74 mmHg Indications: Mechanical AVR 06/14/2025 at [facility] BAKER, SOA, CAD, HFrEF 2D Dimensions LA Volume 91.20 mL LA Volume Index 46.540069 mL/m2 (M/F) 16-34 Aortic Valve YAYO Index 0.98 cm2/m2 AoV Peak Edgardo. 177.0 (50-130 cm/s) AO Peak GR. 12.80 mmHg AO Mean GR. 6.40 (<5 mmHg) AO VTI 31.2 (18-25 cm) YAYO (VTI) 1.97 (2.5-4.5 cm2) Other Information Study Quality: Fair Conclusion This is a limited TTE to evaluate for LV systolic function and recent AVR implant. Limited windows were obtained. The left ventricle is normal in size. There is increased LV wall thickness. There is mild global hypokinesis present. The distal inferoseptal LV wall is moderately hypokinetic. LVEF is 45%. s/p mechanical AVR (06/2025). Peak velocity 2.1 m/s. Mean AV gradient 7 mmHg. Maximal gradient 15 mmHg. There is moderate size, circumferential pericardial effusion present. The largest pocket measures 1.3 cm in diastole and is located posteriorly. No echo indications of tamponade. No evidence of chamber collapse. The IVC is normal in size and collapsibility. When directly compared to prior TTE from 04/25/2025, the mild reduction in LV systolic function is new. The AVR implant is new. The pericardial effusion is new. Electronically signed by : Ronit Simms MD 06/29/2025 13:38:09
--- NOTE | 2025-06-29 13:12 | XR_ITS ---
FINAL REPORT CLINICAL HISTORY: dyspnea COMPARISON: 05/03/2025 FINDINGS: 2 views of the chest were obtained . The heart is mildly enlarged. Patient is status post median sternotomy. The mediastinum is within normal limits. The lungs are clear. There is no pneumothorax. Osseous structures are unremarkable. IMPRESSION: No acute cardiopulmonary process. Reviewed, Interpreted and Dictated by Dell Luong MD Transcribed by Chastity Contreras Authenticated and [facility]
== END 2025-06-29 23:59 | disposition home or self-care (01) ==
LOC: RT 12:43
PROVIDERS: PCP Family Medicine; Visit Provider Nurse Practitioner
DX: I31.39 Other pericardial effusion (noninflammatory) (principal); I50.40 Unspecified combined systolic (congestive) and diastolic (congestive) heart failure; I25.10 Atherosclerotic heart disease of native coronary artery without angina pectoris; R93.1 Abnormal findings on diagnostic imaging of heart and coronary circulation; Z95.2 Presence of prosthetic heart valve
CPT/HCPCS: 71046; 93308

== ENCOUNTER 2025-07-01 08:41 | Outpatient (CLI) | payer BC, MEDICARE, SELFPAY ==
--- OUTSIDE RECORDS SUMMARY | 2025-05-05 10:20 | XMS_ITS | Encounter Summary ---
Author Organization [facility] Address [address] [id number] Care Team Providers Care Ophthalmic Nurse Name Role Phone Kamran Singh MD Primary Care Provider +1- [phone] Encounter Details Date Type Department Care Team (Latest Contact Info) Description 05/05/2025 10:20 AM EDT Office Visit [facility] [address], [address] [place] [address] Phillip Clark MD [address] [place] [address] Severe aortic regurgitation (Primary Dx) [...] present and normoactive x 4 quadrants SKIN: [place], warm, and dry. No rash, sores, or [...] Description 07/07/2025 2:40 PM EST Office Visit [facility] [address], [address] [place] [address] Phillip Clark MD [address] [place] [address] documented as of this encounter Visit Diagnoses Diagnosis Severe aortic regurgitation- Primary documented in this encounter Additional Health Concerns Assessment Noted Time A fall risk assessment has been complete d for the patient 05/05/2025 9:58 AM EDT A Body Mass Index follow-up plan has been documented for the patient 05/05/2025 10:51 AM EDT documented as of this encounter Care Teams Ophthalmic Nurse Relationship Specialty Start Date End Date Kamran Singh MD [address] [place] [address] PCP - General 02/28/25 documented as of this encounter
--- OUTSIDE RECORDS SUMMARY | 2025-06-07 08:30 | XMS_ITS | Encounter Summary ---
Author Organization [facility] Address [address] [place] [address] Care Team Providers Care Research Program Internship Name Role Phone Kamran Singh MD Primary Care Provider +1- [phone] Encounter Details Date Type Department Care Team (Late st Contact Info) Description 06/07/2025 8:30 AM EDT Pre-Admission Testing [place] [facility] [address], [address] [place] [phone] Social History Tobacco Use Types Packs/Day Years [...] any time in the past 12 m [facility], were you homeless or living in a snf (including now)? No 06/15/2025 [facility] Utilities Answer Date Recorded In [...] for AORTIC ROOT RECONSTRUCTION (N/A) with Phillip lCark MD on 06/14/2025 at [facility] under general anesthesia. aortic enlargement, [...] fibrillation, CHF, dysrhythmias, hyperlipidemia, pacemaker or past [place]. hypertension: Exercise tolerance is 1 flight of [...] 2 tablets by mouth every morning. Under [place] law, monthly prescriptions (30days) can be refilled [...] card, photo ID, along with power of supervisor receiving and processing, guardianship or advanced directives if applicable Do [...] Description 07/07/2025 2:40 PM EST Office Visit [place] [facility] [address], [address] [place] [address] Phillip Clark MD [address] [place] [address] documented as of this encounter Visit Diagnoses Not on filedocumented in this encounter Additional Health Concerns Assessment Noted Time A fall risk assessment has been complete d for the patient 05/05/2025 9:58 AM EDT A Body Mass Index follow-up plan has been documented for the patient 05/05/2025 10:51 AM EDT documented as of this encounter Care Teams Research Program Internship Relationship Specialty Start Date End Date Kamran Singh MD [address] [place] [address] PCP - General 02/28/25 documented as of this encounter
--- OUTSIDE RECORDS SUMMARY | 2025-06-09 12:20 | XMS_ITS | Encounter Summary ---
Author Organization [facility] Address [address] [id number] Care Team Providers Care Social Service Technician Name Role Phone Kamran Singh MD Primary Care Provider +1- [phone] Encounter Details Date Type Department Care Team (Latest Contact Info) Description 06/09/2025 12:20 PM EDT Office Visit [facility] Cardi[facility]acic [address], [address] [place] [address] Phillip Clark MD [address] [place] [address] Severe aortic regurgitation (Primary Dx) [...] Notes * Progress Notes - Lorelei Dominique, COMMUNICATION EQUIPMENT MECHANIC - 06/09/2025 12:20 PM EDT Reason for [...] 2 tablets by mouth every morning. Under [employer] law, monthly prescriptions (30 days) can be refilled at 25 days and three-month prescriptions (90 days) at 80 days. Please contact the insurance company with questions if refills are denied. Patient taking differently: Take 2 tablets by mouth every 4 hours as needed. Under [employer] law, monthly prescriptions (30 days) can be [...] Description 07/07/2025 2:40 PM EST Office Visit [facility] Cardiothoracic [address], [address] [place] [address] Phillip Clark MD [address] [place] [phone] documented as of this encounter Results * [...] LAB HEMATOLOGY METHOD 06/09/2025 3:49 PM EDT [facility] RBC Count 5.62 4.60 - 6.10 10*6/uL LAB HEMATOLOGY METHOD 06/09/2025 3:49 PM EDT [facility] HGB 15.6 13.7 - 17.5 g/dL LAB HEMATOLOGY METHOD 06/09/2025 3:49 PM EDT [facility] HCT 49.2 40.0 - 51.0 % LAB HEMATOLOGY METHOD 06/09/2025 3:49 PM EDT [facility] Platelet Count 205 155 - 369 10*3/uL LAB HEMATOLOGY METHOD 06/09/2025 3:49 PM EDT [facility] MCV 88 79 - 98 fL LAB HEMATOLOGY METHOD 06/09/2025 3:49 PM EDT [facility] MCH 27.8 26.0 - 32.0 pg LAB HEMATOLOGY METHOD 06/09/2025 3:49 PM EDT [facility] MCHC 31.7 30.7 - 35.5 g/dL LAB HEMATOLOGY METHOD 06/09/2025 3:49 PM EDT [facility] RDW 15.3(H) 11.5 - 14.5 % LAB HEMATOLOGY METHOD 06/09/2025 3:49 PM EDT [facility] MPV 10.6 8.8 - 12.5 fL LAB HEMATOLOGY METHOD 06/09/2025 3:49 PM EDT [facility] nRBC 0.0 <=0.0 per 100 WBCs LAB HEMATOLOGY METHOD 06/09/2025 3:49 PM EDT [facility] Blood Venous blood specimen / Unknown Venipuncture / Unknown 06/09/2025 1:39 PM EDT 06/09/2025 1:40 PM EDT us Phillip Clark MD LAB BLOOD ORDERABLES Final R esult [facility] [address] [place] [address] * Comprehensive Metabolic Panel, Plasma (06/09/2025 1:39 PM EDT) [facility] Glucose, Plasma 86 74 - 99 mg/dL 06/09/2025 3:57 PM EDT [facility] BUN, Plasma 15 8 - 23 mg/dL 06/09/2025 3:57 PM EDT [facility] Creatinine, Plasma 0.85 0.70 - 1.20 mg/dL 06/09/2025 3:57 PM EDT [facility] BUN/Creatinine Ratio 18 06/09/2025 3:57 PM EDT [facility] Sodium, Plasma 139 136 - 145 mmol/L 06/09/2025 3:57 PM EDT [facility] Potassium, Plasma 4.7 3.6 - 4.9 mmol/L 06/09/2025 3:57 PM EDT [facility] Chloride, Plasma 107 97 - 107 mmol/L 06/09/2025 3:57 PM EDT [facility] CO2, Plasma 24 22 - 29 mmol/L 06/09/2025 3:57 PM EDT [facility] Anion Gap 8 6 - 16 mmol/L 06/09/2025 3:57 PM EDT [facility] Total Calcium, Plasma 9.0 8.9 - 10.2 mg/dL 06/09/2025 3:57 PM EDT [facility] Total Protein 6.6 6.3 - 7.9 g/dL 06/09/2025 3:57 PM EDT [facility] Albumin, Plasma 4.2 3.5 - 5.2 g/dL 06/09/2025 3:57 PM EDT [facility] AST, Plasma 23 10 - 50 U/L 06/09/2025 3:57 PM EDT [facility] ALT, Plasma 23 10 - 50 U/L 06/09/2025 3:57 PM EDT [facility] Alkaline Phosphatase, Plasma 66 40 - 115 U/L 06/09/2025 3:57 PM EDT [facility] Total Bilirubin, Plasma 0.8 0.2 - 1.1 mg/dL 06/09/2025 3:57 PM EDT [facility] eGFRcr 94.1 mL/min/1.7 3m*2 06/09/2025 3:57 PM EDT [facility] Comment:Reported eGFRcr in m L/min/1.73m2 is based the CKD-EPI 2020 equation that does not use a race coefficient. Blood Venous blood specimen / Unknown Venipuncture / Unknown 06/09/2025 1:39 PM EDT 06/09/2025 1:40 PM EDT us Phillip Clark MD LAB BLOOD ORDERABLES Final R esult [facility] [address] [place] [address] * (ABNORMAL) Hemoglobin A1c (06/09/2025 1:39 PM EDT) Hemoglobin A1c 5.7(H) <5.7 % 06/09/2025 6:09 PM EDT [facility] Blood Venous blood specimen / Unknown Venipuncture / Unknown 06/09/2025 1:39 PM EDT 06/09/2025 1:40 PM EDT Narrative [facility] - 06/09/2025 6:09 PM EDT HA1C Interpretive Data: Diagnosis of Diabetes: Diabetic > or = 6.5% Pre-diabetic 5.7 to 6.4% Non-diabetic < or = 5.6% Glycemic Targets for Type I and Type II Diabetics: Non- Adults <7.0% Adults <6.0% Children and Adolescents <7.5% Source: [place] [employer]. Standards of medical care in diabetes,2017. Diabetes Care.2017:40 (suppl 1):S1-S135. Phillip Clark MD LAB BLOOD ORDERABLES Final R esult [facility] [address] [place] [address] * Protime-INR (06/09/2025 1:39 PM EDT) Prothrombin Time 13.6 12.0 - 14.3 sec LAB COAGULATION METHOD 06/09/2025 3:58 PM EDT [facility] INR 1.0 0.9 - 1.1 LAB COAGULATION METHOD 06/09/2025 3:58 PM EDT [facility] Blood Venous blood specimen / Unknown Venipuncture / Unknown 06/09/2025 1:39 PM EDT 06/09/2025 1:40 PM EDT Narrative [facility] - 06/09/2025 3:58 PM EDT OPTIMAL INR RANGES FOR PATIENT ON ORAL ANTICOAGULANT THERAPY Prevention of venous thromboembolism INR 2.0 to 3.0 In patients with heart disease: Atrial fibrillation INR 2.0 to 3.0 Valvular heart disease INR 2.0 to 3.0 Tissue heart valves INR 2.0 to 3.0 Mechanical prosthetic valves INR 2.5 to 3.5 Prevention of recurrent [place] INR 2.5 to 3.5 Phillip Clark MD LAB BLOOD ORDERABLES Final R esult Performing Organization Address City/[facility]/ZIP Co de Phone Number [facility] [address] [place] [address] * APTT (06/09/2025 1:39 PM EDT) aPTT 33 25 - 35 sec LAB COAGULATION METHOD 06/09/2025 3:58 PM EDT [facility] Blood Venous blood specimen / Unknown Venipuncture / Unknown 06/09/2025 1:39 PM EDT 06/09/2025 1:40 PM EDT Phillip Clark MD LAB BLOOD ORDERABLES Final R esult Performing Organization Address [facility] [place] [address] * Type & Screen, 30 Days (06/09/2025 [...] ORDERABL ES Final Result BLOOD BANK [address] [place] [address], documented in this encounter Visit Diagnoses Diagnosis Severe aortic regurgitation- Primary Severe aortic regurgitation documented in this encounter Additional Health Concerns Assessment Noted Time A fall risk assessment has been complete d for the patient 06/09/2025 12:15 PM EDT A Body Mass Index follow-up plan has been documented for the patient 06/09/2025 2:00 PM EDT documented as of this encounter Care Teams Social Service Technician Relationship Specialty Start Date End Date Kamran Singh MD [address] [place] [address] PCP - General 02/28/25 documented as of this encounter
--- OUTSIDE RECORDS SUMMARY | 2025-06-09 13:42 | XMS_ITS | Encounter Summary ---
Author Organization [facility] Address [address] [place] [address] Care Team Providers Care Engineering Faculty Name Role Phone Kamran Singh MD Primary Care Provider [phone]- [phone] Encounter Details Date Type Department Care Team (Latest Contact Info) Description 06/09/2025 1:42 PM EDT - 06/09/2025 11:59 PM EDT Hospital Encounter [place] [facility] [address], 1[address] [place] [phone] Severe aortic regurgitation Discharge Disposition: Home or [...] any time in the past 12 m [facility], were you homeless or living in a group home (including now)? No 06/15/2025 [facility] Utilities Answer Date Recorded In the [...] every morning. Under [place] law, monthly prescriptions (30 days) can be [...] Office Visit [place] [facility] [address], [address] [place] [address] Phillip Clark MD [address] [place] [address] documented as of this encounter Procedures Procedure [...] documented as of this encounter Care Teams Engineering Faculty Relationship Specialty Start Date End Date Kamran Singh MD [address] [place] [address] PCP - General 02/28/25 documented as of this encounter
--- OUTSIDE RECORDS SUMMARY | 2025-06-14 05:18 | XMS_ITS | Encounter Summary ---
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 Name Role Phone Kamran Singh MD Primary Care Provider [phone] Reason for Referral * Consultation (Routine) - Authorized Specialty Diagnoses / Procedures Referred By Nathalia garcia Referred To Contact Cardiac Rehabilitation Diagnoses S/P AVR Phillip Clark MD [address] [address] Phone: tel: fax: Referral ID Status Reason Start Date Expiration Date V isits Requested Visits Authorized [id number] Authorized 06/20/2025 12/20/2026 1 1 Reason for Visit * Auth/Cert (Routine) Specialty Diagnoses / Procedures Referred By Nathalia garcia Referred To Contact Diagnoses Severe aortic regurgitation Severe aortic regurgitation [I35.1] Procedures LA -AORT GRF W/CARD BYP F/AORTIC DISSECTION AORTIC ROOT RECONSTRUCTION Phillip Clark MD [address] [address] Phone: tel: fax: P[facility] A OPERATING ROOM [address] [place] [address] Phone: tel: Referral ID Status Reason Start Date Expiration Date Visits Re quested Visits Authorized [id number] 1 1 Encounter Details Date Type Department Care Team (Latest Contact Info) Description 06/14/2025 5:18 AM EDT - 06/20/2025 2:25 PM EDT Hospital Encounter [facility] A Inpatient [address] [place] [address] Phillip Clark MD [address] [place] [address] Other secondary hypertension (Primary Dx); [...] in the past [address] [facility], were you homeless or living in a mcc (including now)? No 06/15/2025 [facility] Utilities Answer Date Recorded In the [...] a referral and prefers to attend at [facility]. Talmage will contact Mr. Forrest to discuss and [...] 2. Eligibility: Heart valve surgery 3. Exceptions/exclusions: [facility] Cardiac Rehab Exclusions: None 4. Referral: [facility] Cardiac Rehab Referral: Patient agreed with referral to the cardiac rehabilitation program at [facility] in [place], [place], phone number [phone]. 5. Information sent: Information Sent: Appropriate information will be sent to the receiving cardiac rehabilitation program.: * Progress Notes - Oumou Berger - 06/20/2025 10:15 AM EDT Case Management Discharge Note Bradley Forrest 69 y.o. male CSN: [id number] Admission: 06/14/2025 5:18 AM Primary Problem: Aortic valve regurgitation Primary Shading Painter: Primary Caregiver: Self Assistance Available at Discharge: Current Outpatient/Agency/Support Group: DME Availability of Care Givers (#Hours): Other (comment) (As needed) Family/Shading Painter(s) Willingness Assessed to care for patient at home: Yes Family/Shading Painter(s) Readiness Assessed to care for patient at [...] Recieved By: patient Follow-up: Jolynn Pollard APRN [facility] Cardiology [address] [place] [address] [address], [place] [address] Go on 08/22/2025 Your cardiology appointment is on August 22 at 11am Please arrive 15 minutes early and bring UPDATED medication list. [address] [facility] [phone] Go on 06/22/2025 Your first appointment for your Warfarin/Coumadin management is this FridayJune 22 at 11:30am. Please report to [facility] front admission desk and tell them you are checking in to the Pharmacy Anticoagulation Clinic. The statistical clerk will call the pharmacist who will meet you in the lobby and escort you to the clinic. Please bring all medications you are taking and your insurance card. If you have any issues please call [phone] ext: [phone] and then choose option 2. Discharge Transportation: Transportation Anticipated: family or friend will provide Transportation Home at Discharge: Family/Friend will Provide Follow Up Transport: Transportation Needed to Follow up Appoinments: Family/Friend will Provide Additional Comments: SW spoke with primary team this date who indicate the pt is medically stable for DC this date and does not require further [facility]-based care. Pt to DC home with , to transport. Covering RNCM ordered rollator from [facility] to be delivered to bedside. No further [...] PCP name and Address: Kamran Singh MD [address] [place] [address] / [facility] [address] Referring provider name and address: No referring [...] Your Medications These medications were sent to [facility] - [place], [place] - [address] [facility] [address] [facility] [place] [address] acetaminophen 325 MG tablet clopidogrel 75 MG [...] Center 07/07/2025 2:40 PM Phillip Clark MD [facility] Test Results Pending At Discharge N/A [...] Plan Anticoagulation Plan Warfarin Pharmacist Managed?: No [facility] Warfarin Dosing Protocol Followed?: No Reason for Protocol Departure: CT Surgery Bridging Agent in Conjunction With Warfarin? : No INR Monitoring Frequency: Monitor INR daily Patient Education : Complete and documented Warfarin dosing and adjustment per CT surgery provider. Transitions of Care Outpatient provider managing warfarin after [facility] discharge: TBD - possibly clinic Recommended date for outpatient INR assessment: TBD - of note, enoxparin copay $0 for 7 day supply Will continue to follow patient's clinical progress daily. Libia Stevenson PharmD, [facility] Clinical Pharmacist - Cardiothoracic Surgery Available via [employer] * Progress Notes - Phillip Clark MD [...] Electrolyte Balance Flowsheets (Taken 06/19/20251704 by Vicente Hussien, RN) Fluid/Electrolyte Management: fluids restricted fluids provided [...] Management Plan Flowsheets (Taken 06/19/20251704 by Vicente Hussein RN) [...] Ongoing, Progressing Intervention: Promote Activity and Functional [place] Flowsheets (Taken 06/19/20251704 by Vicente Hussein RN) Activity Assistance Provided: assistance, stand-by Adaptive Equipment Use: use encouraged Self-Care Promotion: independence encouraged Problem: Self-Care Deficit Goal: Improved Ability to Complete Activities of Daily Living Outcome: Ongoing, Progressing Intervention: Promote Activity and Functional [place] Flowsheets (Taken 06/19/20251704 by Vicente Hussein, RN) [...] or Manage Infection Flowsheets Taken 06/19/20251999 by nAy Garcia RN Isolation Precautions: protective Taken 06/19/20251704 [...] Ongoing, Progressing Intervention: Promote Activity and Functional [place] Flowsheets (Taken 06/19/20251704) Activity Assistance Provided: assistance, [...] maintained Goal: Improved Oral Intake 06/19/20251704 by Vicetne Hussein RN Outcome: Ongoing, Progressing 06/19/20251704 by [...] Ongoing, Progressing Intervention: Promote Activity and Functional [place] Flowsheets (Taken 06/19/20251704) Activity Assistance Provided: assistance, [...] Plan Anticoagulation Plan Warfarin Pharmacist Managed?: No [facility] Warfarin Dosing Protocol Followed?: No Reason for [...] rhythm - continue warfarin CT surgery pager [phone] [1] acetaminophen, 650 mg, Oral, q4h DEMETRIUS [...] Ongoing, Progressing Intervention: Promote Activity and Functional [place] Flowsheets (Taken 06/19/2025344) Activity Assistance Provided: assistance, stand-by Self-Care Promotion: independence encouraged Problem: Self-Care Deficit Goal: Improved Ability to Complete Activities of Daily Living Outcome: Ongoing, Progressing Intervention: Promote Activity and Functional [place] Flowsheets (Taken 06/19/2025344) Activity Assistance Provided: assistance, [...] from the original note were not included. [id number] Tratamiento para contracciones ventriculares prematuras (CVP) Las [...] Confusi??n. Last Reviewed Date: 2024 00:00:00 ?? 4313-8430 The [employer]. All rights reserved. This information is not intended as a substitute for professional medical care. Always follow your healthcare professional's instructions. * Gabriel Singh - Brittaney Dumas RN - 06/18/2025 6:29 PM EDT Images from the original note were not included. [id number] C??mo comprender las contracciones ventriculares prematuras (CVP) [...] conducci??n del coraz??n. Pasa a la ventr??culo chritsa y derecho. A medida que viaja, la se??al activa partes cercanas del coraz??n contraer. Fuig permite que el coraz??n se comprima de [...] card??acos anteriores, el coraz??n expulsar?? muypoca mushtaq. Fuig provoca aria sensaci??n de pausa entre latidos. El siguiente latido card??aco suele ser m??s bea, ya que la pausa lo permite que el coraz??n descanse y se llene de mushtaq. Fuig lleva a aria sensaci??n de latido card??aco [...] port??til jameson unos d??as o incluso semanas. Fuig puede ayudar a diagnosticar los CVP que [...] im??genes del coraz??n. ? An??lisis de mushtaq. Fuig se hace para comprobar los electrolitos y concentraciones tiroideas. Last Reviewed Date: 2024 00:00:00 ?? 9899-2114 [employer]. All rights reserved. This information is not intended as a substitute for professional medical care. Always follow your healthcare professional's instructions. * Gabriel Singh - Brittaney Dumas RN - 06/18/2025 6:29 PM EDT Images from the original note were not included. [id number] Tratamiento para contracciones ventriculares prematuras (CVP) Las [...] Confusi??n. Last Reviewed Date: 2024 00:00:00 ?? [id number] [employer]. All rights reserved. This information is not intended as a substitute for professional medical care. Always follow your healthcare professional's instructions. * Gabriel Singh - Brittaney Dumas RN - 06/18/2025 6:29 PM EDT Images from the original note were not included. [id number] C??mo comprender las contracciones ventriculares prematuras (CVP) [...] se??al activa partes cercanas del coraz??n contraer. Fuig permite que el coraz??n se comprima de [...] card??acos anteriores, el coraz??n expulsar?? muypoca mushtaq. Fuig provoca aria sensaci??n de pausa entre latidos. El siguiente latido card??aco suele ser m??s bea, ya que la pausa lo permite que el coraz??n descanse y se llene de mushtaq. Fuig lleva a aria sensaci??n de latido card??aco [...] port??til jameson unos d??as o incluso semanas. Fuig puede ayudar a diagnosticar los CVP que [...] tipo es un bucle de memoria grabador. Ewn monitor registra constantemente. César guarda la inscripci??n [...] im??genes del coraz??n. ? An??lisis de mushtaq. Fuig se hace para comprobar los electrolitos y concentraciones tiroideas. Last Reviewed Date: 2024 00:00:00 ?? 2149-1136 [employer]. All rights reserved. This information is not intended as a substitute for professional medical care. Always follow your healthcare professional's instructions. * Gabriel Singh - Brittaney Dumas RN - 06/18/2025 6:28 PM EDT Images from the original note were not included. [id number] Treatment for Premature Ventricular Contractions (PVCs) Premature [...] confusion Last Reviewed Date: 2024 00:00:00 ?? 7143-3190 The [employer]. All rights reserved. This information is not intended as a substitute for professional medical care. Always follow your healthcare professional's instructions. * Gabriel GonsalezALONZO - Brittaney Dumas RN - 06/18/2025 6:28 PM EDT Images from the original note were not included. 00595 Understanding Premature Ventricular Contractions (PVCs) Premature ventricular [...] to 2 weeks. ? Insertable (or implantable) school bus monitor. This small device is implanted under the [...] levels. Last Reviewed Date: 2024 00:00:00 ?? [id number] [employer]. All rights reserved. This information is not [...] Plan Anticoagulation Plan Warfarin Pharmacist Managed?: No [facility] Warfarin Dosing Protocol Followed?: No Bridging Agent in Conjunction With Warfarin? : Yes Ordered Agents: Enoxaparin Bridging Agent Dose: 70mg BID INR Monitoring Frequency: Monitor INR daily Patient Education : Complete and documented Warfarin dosing and adjustment per CT surgery provider. Transitions of Care Outpatient provider managing warfarin after [facility] discharge: TBD - possibly clinic Recommended date [...] Ongoing, Progressing Intervention: Promote Activity and Functional [place] Flowsheets (Taken 06/18/202558) Activity Assistance Provided: assistance, 1 person Self-Care Promotion: independence encouraged Problem: Self-Care Deficit Goal: Improved Ability to Complete Activities of Daily Living Outcome: Ongoing, Progressing Intervention: Promote Activity and Functional [place] Flowsheets (Taken 06/18/202558) Activity Assistance Provided: assistance, [...] from the original note were not included. [id number] Warfarin IMPORTANT WARNING: Warfarin may cause severe [...] doctor or pharmacist will give you the batting machine operator's patient information sheet (Medication Guide) when you begin treatment with warfarin and each time you refill your prescription. Read the information carefully and ask your doctor or pharmacist if you have any questions. You can also visit the Food and Drug Administration (FDA) website (https://www.fda.gov/downloads/Drugs/DrugSafety/urw980152.pdf) or the batting machine operator's website to obtain the Medication Guide. [...] Echinacea, garlic, Ginkgo biloba, ginseng, goldenseal, and [place]'s wort; omeprazole (Prilosec); famotidine (Pepcid AC); aspirin [...] amounts of vitamin K-containing food on a dwgb-lz-ylzv basis. Do not eat large amounts of [...] be awakened, immediately call emergency services at 379. Symptoms of overdose may include the following: [...] of all of the prescription and nonprescription (gxzj-xue-anruokr) medicines, vitamins, minerals, and dietary supplements you [...] or pharmacist about specific clinical use. The [place] [employer] represents that the information provided hereunder was formulated with a reasonable standard of care, and in conformity with professional standards in the field. The [place] [employer] makes no representations or warranties, express or implied, including, but not limited to, any implied warranty of merchantability and/or fitness for a particular purpose, with respect to such information and specifically disclaims all such warranties. Users are advised that decisions regarding drug therapy are complex medical decisions requiring the independent, informed decision of an appropriate health urgent care nurse practitioner, and the information is provided for informational purposes only. The entire monograph for a drug should be reviewed for a thorough understanding of the drug's actions, uses and side effects. The [place] [employer] does not endorse or recommend the use of any drug.The information is not a substitute for medical care. AHFS?? Patient Medication Information?. ?? Copyright, 2023. The [place] [employer]??, [address] [facility], [address], [place], [place]. All Rights Reserved. Duplication for commercial use must be authorized by [facility]. Selected Revisions: February 13, 2017. AHFS?? Patient Medication Information?. ?? Copyright, 2024 * Gabriel Singh - Sydni Munson RN - 06/17/2025 12:42 PM EDT Images from the original note were not included. [id number] Recovery From Heart Surgery: The First Few [...] stop Last Reviewed Date: 2024 00:00:00 ?? [id number] The [employer]. All rights reserved. This information is not [...] arms away from your body. * [facility] - Sydni Munson RN - 06/17/2025 12:42 PM EDT Images from the original note were not included. [id number] After Heart Valve Surgery For the first [...] headache Last Reviewed Date: 2023 00:00:00 ?? 8391-1516 The [employer]. All rights reserved. This information is not intended as a substitute for professional medical care. Always follow your healthcare professional's instructions. * Discharge Instr - Other Orders - Sydni Munson RN - 06/17/2025 12:39 PM EDT Please arrive 30 minutes early for your appointment with Dr. Clark Prior to your appointment, go to the radiology department on the 1st floor of the [facility] for a chest x-ray. Then go [...] your incisions. Do NOT lift, push, or pan puller 5 pounds for six weeks. Do [...] Sydni Munson CT Surgery Nurse Navigator at [phone] Friday through Friday 7am- 3:30pm [facility] [phone] after 3:30 pm, weekends and holidays - ask for the CT surgeon quality control head. * Progress Notes - Brooke Valdez PTA - 06/17/2025 11:58 AM EDT Physical Therapy Treatment Patient Name: Bradley Forrest Today's Date: 06/17/2025 Total Treatment Time: 39 min PT Discharge Recommendations: Home with assistance Equipment Recommended: Rollator Subjective The patient states, I am doing okay. Participants in Care Family/Caregiver Present: Yes Family/Caregiver: Spouse, Other (Specify) (sister and brother) Box Printer: Not Applicable Presentation Oxygen: None (Room air) [...] sequencing. Bed Mobility Exam: Rolling/Turning Level of [place]: Minimum assist (75% patient effort) Physical/Nonphysical Assist: Verbal Cues, Set-up required Bed Mobility Exam: Scooting/Bridging Level of [place]: Minimum assist (75% patient's effort) (to scoot to edge of bed with cues to adhere to sternal precautions) Physical/Nonphysical Assist: Verbal Cues, Set-up required Bed Mobility Exam: Supine to Sit Level of [place]: Minimum assist (75% patient's effort) Physical/Nonphysical Assist: Verbal Cues, Set-up required, Additional assist utilized for safety Bed Mobility Exam: Sit to Supine Level of [place]: Minimum assist (75% patient's effort) Physical/Nonphysical Assist: Verbal Cues, Set-up required, Additional assist utilized for safety Transfers Transfer Intervention: Verbal cues provided for correct bilateral hand and foot placement during sit to stand transfers. Transfer Interventions: The patient stood at the sink for hygiene approximately 8-10 minutes with CGA of 1 person. Transfer Exam: Sit to stand Level of [place]: Contact guard Physical/Nonphysical Assist: Verbal Cues, Set-up required Assistive Device: Rollator Transfer Exam: Stand to Sit Level of [place]: Contact guard Physical/Nonphysical Assist: Verbal Cues, Set-up [...] No assist required prior to admission (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) Level of Mobility Ambulatory- community Mobility [place] Independent gait without device History of Falls [...] Visitors Present Yes Spouse (sister and brother) Box Printer (if applicable) OBJECTIVE PAIN Pain Score (0-10): [...] for toileting and grooming tasks. Level of [place] Adaptive Equipment Utilized Comments Feeding Grooming SBA Standing sinkside stood times 8 minutes in bathroom. Bathing Upper Body Dressing Lower Body Dressing Sock Level of Assistance: Moderate assistance, Minimal verbal cues Toileting SBA Toilet IADLs Health Management Community Re-Entry BALANCE Postural Appearance INTERVENTIONS Level of [place] Balance Support Comments Static Sit Standby assist [...] weight shifting to promote safety. Level of [place] Physical/Non-physical Assist Adaptive Equipment Utilized Rolling/ Turning [...] Plan Anticoagulation Plan Warfarin Pharmacist Managed?: No [facility] Warfarin Dosing Protocol Followed?: No Bridging Agent in Conjunction With Warfarin? : Yes Ordered Agents: Enoxaparin Bridging Agent Dose: 70mg BID INR Monitoring Frequency: Monitor INR daily Patient Education : Complete and documented Warfarin dosing and adjustment per CT surgery provider. Transitions of Care Outpatient provider managing warfarin after [facility] discharge: TBD - possibly clinic Recommended date [...] the video go to this web address: https://bit.[email or web address] Or, scan this QR code with your smart phone ?? [facility] * Maria Esther Houston PharmD - 06/17/2025 9:21 AM EDT Images from the original note were not included. Warfarin: Your INR Goal - Video Understand what the INR test measures, and what your healthy INR level should be. To view the video go to this web address: https://bit.ly/9Bln0NR Or, scan this QR code with your [...] the video go to this web address: https://bit.ly/7FN5Emx Or, scan this QR code with your [...] Certain other vegetables and fruits, including asparagus, [place] sprouts, and kiwifruit ? Certain soy products, such as natto (a traditional Ukrainian dish of fermented soybeans) Some vegetable oils [...] reduced-fat cheese, served with a whole grain Tajik muffin ? A grilled chicken sandwich on whole grain bread with raw spinach*, tomato slices, and mustard ? Oven-roasted fish served with steamed broccoli* and medley of whole grain pasta, carrots, onions,and mushrooms * Foods higher in vitamin K Last Reviewed Date: 2025 00:00:00 ?? 7311-8327 The [employer]. All rights reserved. This information is not [...] the video go to this web address: [email or web address] Or, scan this QR code with your [...] the video go to this web address: [email or web address] Or, scan this QR code with your smart phone ?? [facility] * Gabriel OnTRISTAN - Maria Esther Kent PharmD - 06/17/2025 9:21 AM EDT Images from the original note were not included. [id number] Warfarin IMPORTANT WARNING: Warfarin may cause severe [...] doctor or pharmacist will give you the batting machine operator's patient information sheet (Medication Guide) when you begin treatment with warfarin and each time you refill your prescription. Read the information carefully and ask your doctor or pharmacist if you have any questions. You can also visit the Food and Drug Administration (FDA) website (https://www.fda.gov/downloads/Drugs/DrugSafety/xvo269982.pdf) or the batting machine operator's website to obtain the Medication Guide. [...] amounts of vitamin K-containing food on a ekin-aw-jyki basis. Do not eat large amounts of [...] be awakened, immediately call emergency services at 511. Symptoms of overdose may include the following: [...] of all of the prescription and nonprescription (ilct-owy-ukepdco) medicines, vitamins, minerals, and dietary supplements you [...] or pharmacist about specific clinical use. The [place] [employer] represents that the information provided hereunder was formulated with a reasonable standard of care, and in conformity with professional standards in the field. The [place] [employer] makes no representations or warranties, express or implied, including, but not limited to, any implied warranty of merchantability and/or fitness for a particular purpose, with respect to such information and specifically disclaims all such warranties. Users are advised that decisions regarding drug therapy are complex medical decisions requiring the independent, informed decision of an appropriate health urgent care nurse practitioner, and the information is provided for informational purposes only. The entire monograph for a drug should be reviewed for a thorough understanding of the drug's actions, uses and side effects. The [place] [employer] does not endorse or recommend the use of any drug.The information is not a substitute for medical care. AHFS?? Patient Medication Information?. ?? Copyright, 2023. The [place]??, [address] [facility], [address], [place], [place]. All Rights Reserved. Duplication for commercial use must be authorized by [facility]. Selected Revisions: February 13, 2017. AHFS?? Patient [...] Ongoing, Progressing Intervention: Promote Activity and Functional [place] Flowsheets (Taken 06/17/2025108) Activity Assistance Provided: assistance, 1 person Self-Care Promotion: independence encouraged Problem: Self-Care Deficit Goal: Improved Ability to Complete Activities of Daily Living Outcome: Ongoing, Progressing Intervention: Promote Activity and Functional [place] Flowsheets (Taken 06/17/2025108) Activity Assistance Provided: assistance, [...] Note Bradley Forrest 69 y.o. male CSN: [id number] Admission: 06/14/2025 5:18 AM Primary Problem: Severe [...] Problem(s): Weaning from mechanically assisted ventilation initiated ([facility]) (Icgawwfi71/20/2025) Arrived intubated and sedated post-op - fast [...] 06/14/25 Brachial 06/14/25 0808 Brachial 2 GCS: Easton Coma Scale Score: 15 Review of Systems [...] post median sternotomy. Interval removal of the Ashford-Ganzcatheter, right IJ sheath remains in place with tip in the mid to distal SVC. No pneumothorax or pleural effusions. Ongoing interstitial edema. 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 Box Printer (if applicable) OBJECTIVE & INTERVENTIONS PAIN Pain [...] ACTIVITY Treatment Minutes 24 TRANSFERS Level of [place] Physical/Non- physical Assist Adaptive Equipment Utilized Sit to Stand Contact guard Verbal Cues, Additional assist utilized for safety, 1 person + 1 person to manage equipment (verbal cuing for sternal precautions) Stand to sit Contact guard Verbal Cues, 1 person + 1 person to manage equipment Interventions BALANCE Postural Appearance Posture: Rounded shoulders Level of [place] Balance Support Interventions Static Sit Standby assist Feet supported Dynamic Sit Contact guard Feet supported Static Stand Standby assist Right upper extremity support, Left upper extremity support Pt with mild dizziness when coming to stand from sitting which subsided with roughly 30 seconds of static standing Dynamic Stand Standby assist Right upper extremity support, Left upper extremity support AMBULATION Level of [place] Distance Adaptive Equipment Utilized Ambulation Standby assist, [...] Plan Anticoagulation Plan Warfarin Pharmacist Managed?: No [facility] Warfarin Dosing Protocol Followed?: No Reason for Protocol Departure: CT Surgery Bridging Agent in Conjunction With Warfarin? : Yes Ordered Agents: Enoxaparin Bridging Agent Dose: Enoxaparin 70mg bid to start 10 pm INR Monitoring Frequency: Monitor INR daily Patient Education : Incomplete Warfarin dosing and adjustment per CT surgery provider. Transitions of Care Outpatient provider managing warfarin after [facility] discharge: TBD Recommended date for outpatient INR assessment: TBD Will continue to follow patient's clinical progress daily. Sy Fernández PharmD PGY-2 Cardiology Animal Behaviourist Available via Secure Chat * Progress Notes [...] Ongoing, Progressing Intervention: Promote Activity and Functional [place] Flowsheets Taken 06/15/20251699 by Bony Thomas RN [...] Ongoing, Progressing Intervention: Promote Activity and Functional [place] Flowsheets Taken 06/15/2025 1700 by Bony Thomas RN Activity Assistance Provided: assistance, stand-by Taken 06/14/20252154 by Svetlana Reilly RN Self-Care Promotion: independence encouraged * Consults - Nat Singletary RD - 06/15/2025 2:23 PM EDTAssociated Order(s): IP CONSULT TO NUTRITION SERVICES Adult Nutrition Evaluation Note Bradley Forrest 69 y.o. 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) GI Symptoms: Nausea, Vomiting Edema: Generalized Allergies: [...] 30.07 Weight Evaluation: Obese-Class 1 (BMI 30-34.9) [place] Body Weight (kg): 67.3 Percent [place] Body Weight: 130 Adjusted Body Weight (kg): 72.4 Estimated Needs: Kcal/ K-28 Kcal Provided: 4442-8020 Metabolic Cart Study Results: Current Nutrition Intake: Diet Order: Adult Diet Diet Texture: Clear liquid Adult Carbohydrate Restriction: Consistent CHO 2 (9109-8402 Venkat, 80 g/meal) Fat Restriction: Cardiac Percent Meals Eaten (%): establishing Diet Experience and Nutrition History: Diet Education Provided: Will monitor Pertinent home medications: Mu-Ism needs: Nutrition Focused Physical Exam: Physical exam performed on (date): 06/15 Temples (muscles): None Clavicle (muscle): None Shoulder (muscle): None Orbital (fat): None Triceps (fat): None Energy Intake: reported adequate 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 male CSN: [id number] Admission: 06/14/2025 5:18 AM Primary Problem: Severe aortic regurgitation Senior Internal Auditor reviewed chart and spoke with the patient at bedside to complete this Initial Case Management Assessment. PCP: Kamran Singh MD Emergency Contact: Extended Emergency Contact Information Primary Emergency Contact: Naheed Forrest [address]: [address] [place] [address] [address] [place] [address] [employer] [facility] Mobile Relation: Spouse Insurance: Primary Visit Coverage Payer Plan Sponsor Code Group Number Group Name MARY HERNANDEZ [facility] [id number] Primary Visit Coverage Subscriber Subscriber ID Subscriber Name Subscriber SSN Subscriber Address [id number] Bradley Forrest [id number] [place] [address] JITENDRA [facility] Secondary Visit Coverage Payer Plan Sponsor Code Group Number Group Name MEDICARE MEDICARE A & B Secondary Visit Coverage Subscriber Subscriber ID Subscriber Name Subscriber SSN Subscriber Address [id number] Bradley Forrest [id number] [place] [address] JITENDRA [facility] Patient information: Primary Caregiver: Self Support System: Immediate family Daily Living Activities: Functional Status: Independent Living Arrangements: Spouse/Significant other Type of Residence: Private residence, Single Level [address]ina [place]av[place] [address] Current DME: Equipment Currently Used at Home: [...] DME Provider: n/a Living Will/Advance Directive/Power of Machine Stone Polisher Apprentice /Guardian: Unable to assess: No Have you [...] prior HH/O2/HD/Abx. PCP is Kamran Singh. Has [employer] insurance and uses [facility]. Family to transport and assist as [...] Plan Anticoagulation Plan Warfarin Pharmacist Managed?: No [facility] Warfarin Dosing Protocol Followed?: No Reason for [...] progress daily. Sy Fernández PharmD PGY-2 Cardiology Animal Behaviourist Available via Secure Chat * Assessment & [...] Problem(s): Weaning from mechanically assisted ventilation initiated ([facility]) (Najmxwdn63/20/2025) Arrived intubated and sedated post-op - fast track extubation as able - extubated 06/14, on 1L nasal canula * Assessment & Plan Note - Belle Smith MD - 06/15/2025 10:46 AM EDT Associated Problem(s): Other secondary hypertension -Monitor per protocol. -SBP<120 in initial post-op period -clevidipine * Assessment & Plan Note - Janene Camren MD - 06/15/2025 10:22 AM EDT Associated Problem(s): Weaning from mechanically assisted ventilation initiated (CMS/HCC) (Ulzaoasl45/20/2025) Arrived intubated and sedated post-op - fast [...] 06/15/2025 Weaning from mechanically assisted ventilation initiated ([facility]) 06/14/2025 Diabetes 05/05/2025 Benign prostatic hyperplasia 05/05/2025 CAD (coronary artery disease) 04/14/2025 History of coronary angioplasty with insertion of stent 04/14/2025 Ascending aortic aneurysm ([facility]) 04/14/2025 Aortic valve regurgitation 04/14/2025 BMI 30.0-30.9,adult [...] No assist required prior to admission (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) Level of Mobility: Ambulatory- community Mobility [place]: Independent gait without device History of Falls: [...] Mobility Exam: Sit to Supine Level of [place]: Maximum assist (25% patient's effort) Physical/Nonphysical Assist: Verbal Cues, Maximal cues, Additional assist utilized for safety Transfers Transfer Exam: Sit to stand Level of [place]: Moderate assist (50% patient's effort) Physical/Nonphysical Assist: Verbal Cues, Moderate cues, Additional assist utilized for safety Assistive Device: Rollator Transfer Exam: Stand to Sit Level of [place]: Minimum assist (75% patient's effort) Physical/Nonphysical Assist: [...] activity. 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) Level of Mobility: Ambulatory- community Mobility [place]: Independent gait without device History of Falls: [...] Mobility Exam: Sit to Supine Level of [place]: Maximum assist (25% patient's effort) Physical/Nonphysical Assist: Verbal Cues, Maximal cues, Additional assist utilized for safety Transfers Transfer Exam: Sit to stand Level of [place]: Moderate assist (50% patient's effort) Physical/Nonphysical Assist: Verbal Cues, Moderate cues, Additional assist utilized for safety Assistive Device: Rollator Transfer Exam: Stand to Sit Level of [place]: Minimum assist (75% patient's effort) Physical/Nonphysical Assist: [...] continued education to improve carryover. Standardized Assessments [facility] 6-Click Daily Activities Help from Other: Don/Doff Regular Lower Body Clothings: A lot Help From Other: Bathing: A lot Help From Other: Toileting: A lot Help From Other: Don/Doff Upper Body Clothings: Little Help From Other: Grooming: Little Help From Other: Eating Meals: None [facility] Click - Daily Activities Score: [...] by: Belle Smith MD Authorized by: Belle Simth MD Critical care provider statement: Critical care [...] Right 06/14/25 0832 Internal jugular 1 GCS: Easton Coma Scale Score: 15 Review of Systems [...] of NG tube. Right internal jugular approach Ashford-Shira catheter and mediastinal drain in unchanged position. [...] Problem(s): Weaning from mechanically assisted ventilation initiated ([facility]) (Pljbniwb98/20/2025) Arrived intubated and sedated post-op - fast [...] for analgesia prior to leaving the OR. [facility] services were consulted for management of [...] pressure support 04/05 Edited by: Balta Washington, DIRECTOR EXECUTIVE COMMUNICATIONS, DNP at 06/14/2025 2253 Lines/Drains/Tubes: Patient Lines/Drains/Airways [...] Ongoing, Progressing Intervention: Promote Activity and Functional [place] Flowsheets (Taken 06/14/20252154) Activity Assistance Provided: assistance, [...] Problem(s): Weaning from mechanically assisted ventilation initiated ([facility]) (Odpzyvtt42/20/2025) Arrived intubated and sedated post-op - fast [...] for analgesia prior to leaving the OR. [facility] services were consulted for management of [...] 06/14/25 1327 Mediastinal less than 1 NG/OG [place] Sump Orogastric 18 Fr Center mouth 06/14/25 [...] Reviewed and otherwise non-contributory. Allergies: Allergies[6] GCS: [place]on Coma Scale Score: 15 Review of Systems [...] OTHER SURGICAL HISTORY N/A Knee arthroscopy from [facility] SHOULDER [facility]GERY Right [3] No current facility-administered medications on file prior to encounter. Current Outpatient Medications on File Prior to Encounter Medication Sig Dispense Refill acetaminophen (Tylenol) 325 MG tablet Take 2 tablets by mouth every morning. Under [place] law, monthly prescriptions (30 days) can be refilled at 25 days and three-month prescriptions (90 days) at 80 days. Please contact the insurance company with questions if refills are denied. (Patient taking differently: Take 2 tablets by mouth every 4 hours as needed. Under [place] law, monthly prescriptions (30 days) can be [...] [place] mechanical prosthesis. Date: 06/14/25 Location: [facility] Name: Bradley Forrest, : 1955, Diagnoses: Pre-op Diagnosis Severe aortic regurgitation Post-op Diagnosis Severe aortic regurgitation Coronary artery disease due to calcified coronary lesion History of coronary angioplasty with insertion of stent Left ventricular enlargement Procedure(s): Median sternotomy, aortic valve replacement using a 25 mm [place] mechanical prosthesis. Attending Surgeon(s): * Phillip Clark - Primary Archery Equipment Repairer(s): * Turner Pablo MD - Fellow Anesthesia: General ASA: IV Blood Administration: Blood Product Administration History None Estimated Blood Loss: 150 mL Drains: Chest Tube Mediastinal 36 Fr (Active) Function -20 cm H2O 06/14/25 1600 Chest Tube Air Leak No 06/14/25 1600 Patency Intervention Tip/tilt 06/14/25 1600 Drainage Description Dark red 06/14/25 1600 NG/OG [place] Sump Orogastric 18 Fr Center mouth (Active) Urethral Catheter Temperature probe 16 Fr. (Active) Implants Type Name Action Serial No. GRAFT PTCH [id number] FELT - [id number] Implanted VALVE ATRIAL 25MM ROTATABL CUF STD PTFE - [id number] - [id number] Implanted [id number] Specimen: Specimens ID Source Frozen? 1 Heart [...] stenting of his coronaries. In addition his freelance patternmaker, Jd Duvall, had done an echocardiogram which [...] was induced, monitoring lines were placed, a Ashford-Shria catheter was floated into position and a [...] Prolene and a tack seal. One 36 Slovenian chest tube was placed. Chest tubes and pacing wires were secured to the anterior abdominal wall. The sternum was reapproximated with #7 [id number] stainless steel wires, the fasciawas closed with [...] 2 tablets by mouth every morning. Under [place] law, monthly prescriptions (30 days) can be refilled at 25 days and three-month prescriptions (90 days) at 80 days. Please contact the insurance company with questions if refills are denied. Patient taking differently: Take 2 tablets by mouth every 4 hours as needed. Under [place] law, monthly prescriptions (30 days) can be [...] Office Visit [facility] [address], [address] [place] [address] Phillip Clark MD [address] [place] [address] Pending Results Name Type Priority [...] PANEL, PLASMA Routine 06/16/2025 5:35 PM EDT [facility], E/M 30-74 MINUTES Routine 06/16/2025 [...] PEP THERAPY Routine 06/15/2025 12:00 PM EDT [facility], E/M 30-74 MINUTES Routine 06/15/2025 [...] 1 VIEW Routine 06/15/2025 2:53 AM EDT [facility], ADDL 30 MIN Routine 06/15/2025 12:21 AM EDT Other secondary hypertension [facility], ADDL 30 MIN Routine 06/15/2025 [...] PANEL, ARTERIAL Routine 06/14/2025 6:47 PM EDT [facility], E/M 30-74 MINUTES Routine 06/14/2025 [...] UNSOLICITED RESULTS Routine 06/14/2025 8:13 AM EDT LA -AORT GRF W/CARD BYP F/AORTIC DISSECTION 06/14/2025 [...] - 99 mg/dL 06/20/2025 2:47 AM EDT [facility] BUN, Plasma 22 8 - 23 mg/dL 06/20/2025 2:47 AM EDT [facility] Creatinine, Plasma 0.85 0.70 - 1.20 mg/dL 06/20/2025 2:47 AM EDT [facility] BUN/Creatinine Ratio 26 06/20/2025 2:47 AM EDT [facility] Sodium, Plasma 131(L) 136 - 145 mmol/L 06/20/2025 2:47 AM EDT [facility] Potassium, Plasma 4.0 3.6 - 4.9 mmol/L 06/20/2025 2:47 AM EDT [facility] Chloride, Plasma 102 97 - 107 mmol/L 06/20/2025 2:47 AM EDT [facility] CO2, Plasma 24 22 - 29 mmol/L 06/20/2025 2:47 AM EDT [facility] Anion Gap 5(L) 6 - 16 mmol/L 06/20/2025 2:47 AM EDT [facility] Total Calcium, Plasma 7.9(L) 8.9 - 10.2 mg/dL 06/20/2025 2:47 AM EDT [facility] eGFRcr 94.1 mL/min/1.7 3m*2 06/20/2025 2:47 AM EDT [facility] Comment:Reported eGFRcr in m L/min/1.73m2 is based the CKD-EPI 2020 equation that does not use a race coefficient. Blood Venous blood specimen / Unknown Venipuncture / Unknown 06/20/2025 1:52 AM EDT 06/20/2025 1:59 AM EDT us Phillip Clark MD LAB BLOOD ORDERABLES Final R esult [facility] [address] [place] [address] * Phosphorus (06/20/2025 1:52 AM EDT) Phosphorus, Plasma 2.8 2.5 - 4.5 mg/dL 06/20/2025 2:23 AM EDT [facility] Blood Venous blood specimen / Unknown Venipuncture / Unknown 06/20/2025 1:52 AM EDT 06/20/2025 1:59 AM EDT Phillip Clark MD LAB BLOOD ORDERABLES Final R esult [facility] [address] [place] [address] * (ABNORMAL) Protime-INR (06/20/2025 1:52 AM EDT) Prothrombin Time 30.4(H) 12.0 - 14.3 sec LAB COAGULATION METHOD 06/20/2025 2:29 AM EDT [facility] INR 2.9(H) 0.9 - 1.1 LAB COAGULATION METHOD 06/20/2025 2:29 AM EDT [facility] Blood Venous blood specimen / Unknown Venipuncture / Unknown 06/20/2025 1:52 AM EDT 06/20/2025 1:59 AM EDT Narrative [facility] - 06/20/2025 2:29 AM EDT [...] Final R esult [facility] [address] [place] [address] * Magnesium (06/20/2025 1:52 AM EDT) Magnesium, Plasma 2.2 1.9 - 2.4 mg/dL 06/20/2025 2:23 AM EDT [facility] Blood Venous blood specimen / Unknown Venipuncture / Unknown 06/20/2025 1:52 AM EDT 06/20/2025 1:59 AM EDT Phillip Clark MD LAB BLOOD ORDERABLES Final R esult [facility] [address] [place] [address] * (ABNORMAL) CBC (06/20/2025 1:52 AM EDT) WBC Count 6.95 3.70 - 10.30 10*3/uL LAB HEMATOLOGY METHOD 06/20/2025 2:07 AM EDT [facility] RBC Count 3.73(L) 4.60 - 6.10 10*6/uL LAB HEMATOLOGY METHOD 06/20/2025 2:07 AM EDT [facility] HGB 10.4(L) 13.7 - 17.5 g/dL LAB HEMATOLOGY METHOD 06/20/2025 2:07 AM EDT [facility] HCT 31.9(L) 40.0 - 51.0 % LAB HEMATOLOGY METHOD 06/20/2025 2:07 AM EDT [facility] Platelet Count 187 155 - 369 10*3/uL LAB HEMATOLOGY METHOD 06/20/2025 2:07 AM EDT [facility] MCV 86 79 - 98 fL LAB HEMATOLOGY METHOD 06/20/2025 2:07 AM EDT [facility] MCH 27.9 26.0 - 32.0 pg LAB HEMATOLOGY METHOD 06/20/2025 2:07 AM EDT [facility] MCHC 32.6 30.7 - 35.5 g/dL LAB HEMATOLOGY METHOD 06/20/2025 2:07 AM EDT [facility] RDW 14.8(H) 11.5 - 14.5 % LAB HEMATOLOGY METHOD 06/20/2025 2:07 AM EDT [facility] MPV 10.2 8.8 - 12.5 fL LAB HEMATOLOGY METHOD 06/20/2025 2:07 AM EDT [facility] nRBC 0.0 <=0.0 per 100 WBCs LAB HEMATOLOGY METHOD 06/20/2025 2:07 AM EDT [facility] Blood Venous blood specimen / Unknown Venipuncture / Unknown 06/20/2025 1:52 AM EDT 06/20/2025 1:59 AM EDT us Phillip Clark MD LAB BLOOD ORDERABLES Final R esult [facility] [address] [place] [address] * PERIPHERAL IV (SMARTFORM LINK) (06/20/2025 1:47 AM EDT) Narrative Sterling Molina RN - 06/20/2025 1:47 AM EDT Sterling Molina RN 06/20/2025 1:48 AM Insert peripheral IV Performed by: Sterling Molina, RN Authorized by: Phillip Clark MD Hand [...] ECG Atrial Rate 85 BPM MUSE ECG LA Interval 176 ms MUSE ECG QRSD Interval 110 ms MUSE ECG QT Interval 402 ms MUSE ECG QTC Interval 478 ms MUSE ECG P [place] 43 degrees MUSE ECG R [place] -30 degrees MUSE ECG T Wave [place] 36 degrees MUSE ECG Diagnosis Poor data quality, interpretation may be adversely affected MUSE ECG Diagnosis Sinus rhythm with premature supraventricular complexes and with occasional premature ventricular complexes MUSE ECG Diagnosis Left axis deviation MUSE ECG Diagnosis Poor R-wave progression MUSE ECG Diagnosis Abnormal ECG MUSE ECG Diagnosis Recommend repeat ECG MUSE ECG Diagnosis MUSE ECG Diagnosis Confirmed by Aman Coe ([id number]) on 06/19/2025 1:33:10 PM MUSE ECG 06/19/2025 12:4 9 PM EDT 06/19/2025 1:33 PM EDT Barbara Sosa PA ECG ORDERABLES Final Resul t MUSE ECG * (ABNORMAL) Basic metabolic panel (06/19/2025 2:38 AM EDT) Glucose, Plasma 102(H) 74 - 99 mg/dL 06/19/2025 4:10 AM EDT [facility] BUN, Plasma 25(H) 8 - 23 mg/dL 06/19/2025 4:10 AM EDT [facility] Creatinine, Plasma 1.02 0.70 - 1.20 mg/dL 06/19/2025 4:10 AM EDT [facility] BUN/Creatinine Ratio 25 06/19/2025 4:10 AM EDT [facility] Sodium, Plasma 134(L) 136 - 145 mmol/L 06/19/2025 4:10 AM EDT [facility] Potassium, Plasma 4.6 3.6 - 4.9 mmol/L 06/19/2025 4:10 AM EDT [facility] Comment:Hemolyzed - Potassiu m may be falsely elevated by approximately 0.4-0.7 mmol/L. Chloride, Plasma 102 97 - 107 mmol/L 06/19/2025 4:10 AM EDT [facility] CO2, Plasma 23 22 - 29 mmol/L 06/19/2025 4:10 AM EDT [facility] Anion Gap 9 6 - 16 mmol/L 06/19/2025 4:10 AM EDT [facility] Total Calcium, Plasma 8.4(L) 8.9 - 10.2 mg/dL 06/19/2025 4:10 AM EDT [facility] eGFRcr 79.6 mL/min/1.7 3m*2 06/19/2025 4:10 AM EDT [facility] Comment:Reported eGFRcr in m L/min/1.73m2 is based the CKD-EPI 2020 equation that does not use a race coefficient. Blood Venous blood specimen / Unknown Venipuncture / Unknown 06/19/2025 2:38 AM EDT 06/19/2025 2:54 AM EDT Phillip Clark MD LAB BLOOD ORDERABLES Final R esult Performing Organization Address City/[facility]/ZIP Co de Phone Number [facility] [address] [place] [address] * Phosphorus (06/19/2025 2:38 AM EDT) Pathologist [facility] Phosphorus, Plasma 3.6 2.5 - 4.5 mg/dL 06/19/2025 4:10 AM EDT [facility] Blood Venous blood specimen / Unknown Venipuncture / Unknown 06/19/2025 2:38 AM EDT 06/19/2025 2:54 AM EDT Phillip Clark MD LAB BLOOD ORDERABLES Final R esult Performing Organization Address [facility] Co de Phone Number [facility] [address] [place] [address] * (ABNORMAL) Protime-INR (06/19/2025 2:38 AM EDT) [facility] Prothrombin Time 26.3(H) 12.0 - 14.3 sec LAB COAGULATION METHOD 06/19/2025 3:09 AM EDT [facility] INR 2.4(H) 0.9 - 1.1 LAB COAGULATION METHOD 06/19/2025 3:09 AM EDT [facility] Blood Venous blood specimen / Unknown Venipuncture / Unknown 06/19/2025 2:38 AM EDT 06/19/2025 2:54 AM EDT Narrative [facility] - 06/19/2025 3:09 AM EDT [...] [facility]/ZIP Co de Phone Number [facility] [address] [place] [address] * Magnesium (06/19/2025 2:38 AM EDT) Magnesium, Plasma 2.4 1.9 - 2.4 mg/dL 06/19/2025 4:10 AM EDT [facility] Blood Venous blood specimen / Unknown Venipuncture / Unknown 06/19/2025 2:38 AM EDT 06/19/2025 2:54 AM EDT Phillip Clark MD LAB BLOOD ORDERABLES Final R esult [facility] [address] [place] [address] * (ABNORMAL) CBC (06/19/2025 2:38 AM EDT) Pathologist [facility] WBC Count 6.94 3.70 - 10.30 10*3/uL LAB HEMATOLOGY METHOD 06/19/2025 3:17 AM EDT [facility] RBC Count 4.12(L) 4.60 - 6.10 10*6/uL LAB HEMATOLOGY METHOD 06/19/2025 3:17 AM EDT [facility] HGB 11.5(L) 13.7 - 17.5 g/dL LAB HEMATOLOGY METHOD 06/19/2025 3:17 AM EDT [facility] HCT 35.7(L) 40.0 - 51.0 % LAB HEMATOLOGY METHOD 06/19/2025 3:17 AM EDT [facility] Platelet Count 165 155 - 369 10*3/uL LAB HEMATOLOGY METHOD 06/19/2025 3:17 AM EDT [facility] MCV 87 79 - 98 fL LAB HEMATOLOGY METHOD 06/19/2025 3:17 AM EDT [facility] MCH 27.9 26.0 - 32.0 pg LAB HEMATOLOGY METHOD 06/19/2025 3:17 AM EDT [facility] MCHC 32.2 30.7 - 35.5 g/dL LAB HEMATOLOGY METHOD 06/19/2025 3:17 AM EDT [facility] [facility] RDW 14.8(H) 11.5 - 14.5 % LAB HEMATOLOGY METHOD 06/19/2025 3:17 AM EDT [facility] MPV 10.6 8.8 - 12.5 fL LAB HEMATOLOGY METHOD 06/19/2025 3:17 AM EDT [facility] nRBC 0.0 <=0.0 per 100 WBCs LAB HEMATOLOGY METHOD 06/19/2025 3:17 AM EDT [facility] Blood Venous blood specimen / Unknown Venipuncture / Unknown 06/19/2025 2:38 AM EDT 06/19/2025 2:54 AM EDT us Phillip Clark MD LAB BLOOD ORDERABLES Final R esult [facility] [address] [place] [address] * XR Chest 1 View (06/19/2025 1:50 [...] - 99 mg/dL 06/18/2025 2:17 AM EDT [facility] BUN, Plasma 18 8 - 23 mg/dL 06/18/2025 2:17 AM EDT [facility] Creatinine, Plasma 0.82 0.70 - 1.20 mg/dL 06/18/2025 2:17 AM EDT [facility] BUN/Creatinine Ratio 22 06/18/2025 2:17 AM EDT [facility] Sodium, Plasma 134(L) 136 - 145 mmol/L 06/18/2025 2:17 AM EDT [facility] Potassium, Plasma 3.7 3.6 - 4.9 mmol/L 06/18/2025 2:17 AM EDT [facility] Chloride, Plasma 100 97 - 107 mmol/L 06/18/2025 2:17 AM EDT [facility] CO2, Plasma 26 22 - 29 mmol/L 06/18/2025 2:17 AM EDT [facility] Anion Gap 8 6 - 16 mmol/L 06/18/2025 2:17 AM EDT [facility] Total Calcium, Plasma 8.1(L) 8.9 - 10.2 mg/dL 06/18/2025 2:17 AM EDT [facility] eGFRcr 95.1 mL/min/1.7 3m*2 06/18/2025 2:17 AM EDT [facility] Comment:Reported eGFRcr in m L/min/1.73m2 is based the CKD-EPI 2020 equation that does not use a race coefficient. Blood Blood sample taken from central line / Unknown Venipuncture / Unknown 06/18/2025 1:43 AM EDT 06/18/2025 1:48 AM EDT us Phillip Clark MD LAB BLOOD ORDERABLES Final R esult [facility] [address] [place] [address] * Phosphorus (06/18/2025 1:43 AM EDT) Phosphorus, Plasma 2.6 2.5 - 4.5 mg/dL 06/18/2025 2:17 AM EDT [facility] Blood Blood sample taken from central line / Unknown Venipuncture / Unknown 06/18/2025 1:43 AM EDT 06/18/2025 1:48 AM EDT us Phillip Clark MD LAB BLOOD ORDERABLES Final R esult Performing Organization Address [facility]/ZIP Co de Phone Number [facility] [address] [place] [address] * (ABNORMAL) Protime-INR (06/18/2025 1:43 AM EDT) Prothrombin Time 25.2(H) 12.0 - 14.3 sec LAB COAGULATION METHOD 06/18/2025 2:07 AM EDT [facility] INR 2.3(H) 0.9 - 1.1 LAB COAGULATION METHOD 06/18/2025 2:07 AM EDT [facility] Blood Blood sample taken from central line / Unknown Venipuncture / Unknown 06/18/2025 1:43 AM EDT 06/18/2025 1:48 AM EDT Narrative [facility] - 06/18/2025 2:07 AM EDT [...] of recurrent [place] INR 2.5 to 3.5 us Phillip Clark MD LAB BLOOD ORDERABLES Final R esult Performing Organization Address [facility] Co de Phone Number [facility] [address] [place] [address] * Magnesium (06/18/2025 1:43 AM EDT) Pathologist [facility] Magnesium, Plasma 2.3 1.9 - 2.4 mg/dL 06/18/2025 2:17 AM EDT [facility] Blood Blood sample taken from central line / Unknown Venipuncture / Unknown 06/18/2025 1:43 AM EDT 06/18/2025 1:48 AM EDT Phillip Clark MD LAB BLOOD ORDERABLES Final R esult Performing Organization Address City/[facility]/ZIP Co de Phone Number [facility] [address] [place] [address] * (ABNORMAL) CBC (06/18/2025 1:43 AM EDT) [facility] Signature WBC Count 8.51 3.70 - 10.30 10*3/uL LAB HEMATOLOGY METHOD 06/18/2025 1:54 AM EDT [facility] RBC Count 3.67(L) 4.60 - 6.10 10*6/uL LAB HEMATOLOGY METHOD 06/18/2025 1:54 AM EDT [facility] HGB 10.6(L) 13.7 - 17.5 g/dL LAB HEMATOLOGY METHOD 06/18/2025 1:54 AM EDT [facility] HCT 31.2(L) 40.0 - 51.0 % LAB HEMATOLOGY METHOD 06/18/2025 1:54 AM EDT [facility] Platelet Count 121(L) 155 - 369 10*3/uL LAB HEMATOLOGY METHOD 06/18/2025 1:54 AM EDT [facility] MCV 85 79 - 98 fL LAB HEMATOLOGY METHOD 06/18/2025 1:54 AM EDT [facility] MCH 28.9 26.0 - 32.0 pg LAB HEMATOLOGY METHOD 06/18/2025 1:54 AM EDT [facility] MCHC 34.0 30.7 - 35.5 g/dL LAB HEMATOLOGY METHOD 06/18/2025 1:54 AM EDT [facility] RDW 14.7(H) 11.5 - 14.5 % LAB HEMATOLOGY METHOD 06/18/2025 1:54 AM EDT [facility] MPV 10.4 8.8 - 12.5 fL LAB HEMATOLOGY METHOD 06/18/2025 1:54 AM EDT [facility] nRBC 0.0 <=0.0 per 100 WBCs LAB HEMATOLOGY METHOD 06/18/2025 1:54 AM EDT [facility] Blood Blood sample taken from central line / Unknown Venipuncture / Unknown 06/18/2025 1:43 AM EDT 06/18/2025 1:48 AM EDT us Phillip Clark MD LAB BLOOD ORDERABLES Final R esult [facility] [address] [place] [address] * XR Chest 1 View (06/17/2025 3:14 [...] - 99 mg/dL 06/17/2025 12:54 AM EDT [facility] BUN, Plasma 15 8 - 23 mg/dL 06/17/2025 12:54 AM EDT [facility] Creatinine, Plasma 0.81 0.70 - 1.20 mg/dL 06/17/2025 12:54 AM EDT [facility] BUN/Creatinine Ratio 19 06/17/2025 12:54 AM EDT [facility] Sodium, Plasma 133(L) 136 - 145 mmol/L 06/17/2025 12:54 AM EDT [facility] Potassium, Plasma 3.9 3.6 - 4.9 mmol/L 06/17/2025 12:54 AM EDT [facility] Chloride, Plasma 98 97 - 107 mmol/L 06/17/2025 12:54 AM EDT [facility] CO2, Plasma 25 22 - 29 mmol/L 06/17/2025 12:54 AM EDT [facility] Anion Gap 10 6 - 16 mmol/L 06/17/2025 12:54 AM EDT [facility] Total Calcium, Plasma 8.1(L) 8.9 - 10.2 mg/dL 06/17/2025 12:54 AM EDT [facility] eGFRcr 95.4 mL/min/1.7 3m*2 06/17/2025 12:54 AM EDT [facility] Comment:Reported eGFRcr in m L/min/1.73m2 is based the CKD-EPI 2020 equation that does not use a race coefficient. Blood Blood sample taken from central line / Unknown Venipuncture / Unknown 06/17/2025 12:17 AM EDT 06/17/2025 12:24 AM EDT us Phillip Clark MD LAB BLOOD ORDERABLES Final R esult [facility] [address] [place] [address] * Phosphorus (06/17/2025 12:17 AM EDT) Phosphorus, Plasma 2.9 2.5 - 4.5 mg/dL 06/17/2025 12:54 AM EDT [facility] Blood Blood sample taken from central line / Unknown Venipuncture / Unknown 06/17/2025 12:17 AM EDT 06/17/2025 12:24 AM EDT Phillip Clark MD LAB BLOOD ORDERABLES Final R esult Performing Organization Address City/[facility] Co de Phone Number [facility] [address] [place] [address] * (ABNORMAL) Protime-INR (06/17/2025 12:17 AM EDT) Prothrombin Time 18.7(H) 12.0 - 14.3 sec LAB COAGULATION METHOD 06/17/2025 1:16 AM EDT [facility] INR 1.5(H) 0.9 - 1.1 LAB COAGULATION METHOD 06/17/2025 1:16 AM EDT [facility] Blood Blood sample taken from central line / Unknown Venipuncture / Unknown 06/17/2025 12:17 AM EDT 06/17/2025 12:24 AM EDT Narrative [facility] - 06/17/2025 1:16 AM EDT [...] [facility]/ZIP Co de Phone Number [facility] [address] [place] [address] * Magnesium (06/17/2025 12:17 AM EDT) Magnesium, Plasma 2.3 1.9 - 2.4 mg/dL 06/17/2025 12:54 AM EDT [facility] Blood Blood sample taken from central line / Unknown Venipuncture / Unknown 06/17/2025 12:17 AM EDT 06/17/2025 12:24 AM EDT us Phillip Clark MD LAB BLOOD ORDERABLES Final R esult [facility] [address] [place] [address] * (ABNORMAL) CBC (06/17/2025 12:17 AM EDT) WBC Count 10.83(H) 3.70 - 10.30 10*3/uL LAB HEMATOLOGY METHOD 06/17/2025 12:32 AM EDT [facility] RBC Count 4.08(L) 4.60 - 6.10 10*6/uL LAB HEMATOLOGY METHOD 06/17/2025 12:32 AM EDT [facility] HGB 11.3(L) 13.7 - 17.5 g/dL LAB HEMATOLOGY METHOD 06/17/2025 12:32 AM EDT [facility] HCT 35.0(L) 40.0 - 51.0 % LAB HEMATOLOGY METHOD 06/17/2025 12:32 AM EDT [facility] Platelet Count 116(L) 155 - 369 10*3/uL LAB HEMATOLOGY METHOD 06/17/2025 12:32 AM EDT [facility] MCV 86 79 - 98 fL LAB HEMATOLOGY METHOD 06/17/2025 12:32 AM EDT [facility] MCH 27.7 26.0 - 32.0 pg LAB HEMATOLOGY METHOD 06/17/2025 12:32 AM EDT [facility] MCHC 32.3 30.7 - 35.5 g/dL LAB HEMATOLOGY METHOD 06/17/2025 12:32 AM EDT [facility] RDW 15.1(H) 11.5 - 14.5 % LAB HEMATOLOGY METHOD 06/17/2025 12:32 AM EDT [facility] MPV 10.3 8.8 - 12.5 fL LAB HEMATOLOGY METHOD 06/17/2025 12:32 AM EDT [facility] nRBC 0.0 <=0.0 per 100 WBCs LAB HEMATOLOGY METHOD 06/17/2025 12:32 AM EDT [facility] Blood Blood sample taken from central line / Unknown Venipuncture / Unknown 06/17/2025 12:17 AM EDT 06/17/2025 12:24 AM EDT Phillip Clark MD LAB BLOOD ORDERABLES Final R esult Performing Organization Address City/[facility]/ZIP Co de Phone Number [facility] [address] [place] [address] * Magnesium (06/16/2025 5:35 PM EDT) Magnesium, Plasma 2.2 1.9 - 2.4 mg/dL 06/16/2025 7:41 PM EDT [facility] Blood Venous blood specimen / Unknown Venipuncture / Unknown 06/16/2025 5:35 PM EDT 06/16/2025 7:12 PM EDT us Phillip Clark MD LAB BLOOD ORDERABLES Final R esult Performing Organization Address City/[facility]/ZIP Co de Phone Number [facility] [address] [place] [address] * (ABNORMAL) Renal function panel (06/16/2025 5:35 PM EDT) Glucose, Plasma 89 74 - 99 mg/dL 06/16/2025 7:41 PM EDT [facility] BUN, Plasma 15 8 - 23 mg/dL 06/16/2025 7:41 PM EDT [facility] Creatinine, Plasma 0.79 0.70 - 1.20 mg/dL 06/16/2025 7:41 PM EDT [facility] BUN/Creatinine Ratio 19 06/16/2025 7:41 PM EDT [facility] Sodium, Plasma 134(L) 136 - 145 mmol/L 06/16/2025 7:41 PM EDT [facility] Potassium, Plasma 3.8 3.6 - 4.9 mmol/L 06/16/2025 7:41 PM EDT [facility] Chloride, Plasma 98 97 - 107 mmol/L 06/16/2025 7:41 PM EDT [facility] CO2, Plasma 25 22 - 29 mmol/L 06/16/2025 7:41 PM EDT [facility] Anion Gap 11 6 - 16 mmol/L 06/16/2025 7:41 PM EDT [facility] Total Calcium, Plasma 8.4(L) 8.9 - 10.2 mg/dL 06/16/2025 7:41 PM EDT [facility] Phosphorus, Plasma 2.2(L) 2.5 - 4.5 mg/dL 06/16/2025 7:41 PM EDT [facility] Albumin, Plasma 3.4(L) 3.5 - 5.2 g/dL 06/16/2025 7:41 PM EDT [facility] eGFRcr 96.2 mL/min/1.7 3m*2 06/16/2025 7:41 PM EDT [facility] Comment:Reported eGFRcr in m L/min/1.73m2 is based the CKD-EPI 2020 equation that does not use a race coefficient. Blood Venous blood specimen / Unknown Venipuncture / Unknown 06/16/2025 5:35 PM EDT 06/16/2025 7:12 PM EDT us Phillip Clark MD LAB BLOOD ORDERABLES Final R esult [facility] [address] [place] [address] * [facility], E/M 30-74 MINUTES (06/16/2025 9:58 [...] POCT glucose meter (06/16/2025 8:40 AM EDT) [facility] POCT Glucose 102(H) 74 - 99 mg/dL [...] for testing. Comment 06/16/2025 8:45 AM EDT [facility] Talent Acquisition Specialist ID Fariba Blanton 025 8:45 AM EDT [facility] Device ID [id number] 06/16/2025 8:45 AM EDT [facility] Specimen Type POC Arterial 06/16/2025 8:45 AM EDT [facility] Blood Arterial blood specimen / Unknown 06/16/2025 8:40 AM EDT 06/16/2025 8:45 AM EDT us Phillip Clark MD LAB POINT OF CARE TE ST DOCKED DEVICE UNSOLICITED RESULTS Final Result [facility] [address] [place] [address] * (ABNORMAL) Basic metabolic panel (06/16/2025 5:58 AM EDT) [facility] Glucose, Plasma 124(H) 74 - 99 mg/dL 06/16/2025 6:35 AM EDT [facility] BUN, Plasma 16 8 - 23 mg/dL 06/16/2025 6:35 AM EDT [facility] Creatinine, Plasma 0.83 0.70 - 1.20 mg/dL 06/16/2025 6:35 AM EDT [facility] BUN/Creatinine Ratio 19 06/16/2025 6:35 AM EDT [facility] Sodium, Plasma 132(L) 136 - 145 mmol/L 06/16/2025 6:35 AM EDT [facility] Potassium, Plasma 3.8 3.6 - 4.9 mmol/L 06/16/2025 6:35 AM EDT [facility] Chloride, Plasma 100 97 - 107 mmol/L 06/16/2025 6:35 AM EDT [facility] CO2, Plasma 25 22 - 29 mmol/L 06/16/2025 6:35 AM EDT [facility] Anion Gap 7 6 - 16 mmol/L 06/16/2025 6:35 AM EDT [facility] Total Calcium, Plasma 8.4(L) 8.9 - 10.2 mg/dL 06/16/2025 6:35 AM EDT [facility] eGFRcr 94.7 mL/min/1.7 3m*2 06/16/2025 6:35 AM EDT [facility] Comment:Reported eGFRcr in m L/min/1.73m2 is based the CKD-EPI 2020 equation that does not use a race coefficient. Blood Arterial blood specimen / Unknown Venipuncture / Unknown 06/16/2025 5:58 AM EDT 06/16/2025 6:05 AM EDT us Phillip Clark MD LAB BLOOD ORDERABLES Final R esult [facility] [address] [place] [address] * XR Chest 1 View (06/16/2025 5:14 AM EDT) Anatomical Region Laterality Modality Chest Digital Radiogra phy Impressions 06/16/2025 8:15 AM EDT Interval removal of the Ashford-Shira catheter, the right IJ sheath remains in [...] post median sternotomy. Interval removal of the Ashford-Shira catheter, right IJ sheath remains in place with tip in the mid to distal SVC. No pneumothorax or pleural effusions. Ongoing interstitial edema. Procedure Note Mona Smith MD - 06/16/2025 CLINICAL INDICATION: Post-Op Cardiac Surgery TECHNIQUE: XR CHEST 1 VIEW COMPARISON: Chest radiograph 06/15/2025 FINDINGS: Enlarged cardiac silhouette stable status post median sternotomy. Intervalremoval of the Ashford-Shira catheter, right IJ sheath remains in place withtip in the mid to distal SVC. No pneumothorax or pleural effusions. Ongoing interstitial edema. IMPRESSION: Interval removal of the Ashford-Shira catheter, the right IJ sheath remainsin place with tip in the mid to distal SVC. Otherwise, no significantchanges CRITICAL RESULT: No. COMMUNICATION: Per this written report. Drafted by Mona Smith MD on 06/16/2025 8:13 AM Final report signed by Mona Smith MD on 06/16/2025 8:15 AM Phillip Clark MD IMG XR PROCEDURES [...] by Opal Lopez on 06/16/2025 2:25 AM Phillip Clark MD IMG XR PROCEDURES Final Resu lt * Phosphorus (06/16/2025 12:36 AM EDT) [facility] Phosphorus, Plasma 3.0 2.5 - 4.5 mg/dL 06/16/2025 1:12 AM EDT [facility] Blood Arterial blood specimen / Unknown Venipuncture / Unknown 06/16/2025 12:36 AM EDT 06/16/2025 12:48 AM EDT Phillip Clark MD LAB BLOOD ORDERABLES Final R esult [facility] [address] [place] [address] * (ABNORMAL) Protime-INR (06/16/2025 12:36 AM EDT) Prothrombin Time 18.0(H) 12.0 - 14.3 sec LAB COAGULATION METHOD 06/16/2025 1:06 AM EDT [facility] INR 1.5(H) 0.9 - 1.1 LAB COAGULATION METHOD 06/16/2025 1:06 AM EDT [facility] Blood Arterial blood specimen / Unknown Venipuncture / Unknown 06/16/2025 12:36 AM EDT 06/16/2025 12:48 AM EDT Narrative [facility] - 06/16/2025 1:06 AM EDT [...] of recurrent [place] INR 2.5 to 3.5 us Phillip Clark MD LAB BLOOD ORDERABLES Final R esult Performing Organization Address City/[facility]/ZIP Co de Phone Number [facility] [address] [place] [address] * (ABNORMAL) Magnesium (06/16/2025 12:36 AM EDT) Magnesium, Plasma 2.5(H) 1.9 - 2.4 mg/dL 06/16/2025 1:12 AM EDT [facility] Blood Arterial blood specimen / Unknown Venipuncture / Unknown 06/16/2025 12:36 AM EDT 06/16/2025 12:48 AM EDT Phillip Clark MD LAB BLOOD ORDERABLES Final R esult Performing Organization Address City/[facility]/ZIP Co de Phone Number [facility] [address] [place] [address] * (ABNORMAL) CBC (06/16/2025 12:36 AM EDT) WBC Count 13.67(H) 3.70 - 10.30 10*3/uL LAB HEMATOLOGY METHOD 06/16/2025 1:01 AM EDT [facility] RBC Count 4.36(L) 4.60 - 6.10 10*6/uL LAB HEMATOLOGY METHOD 06/16/2025 1:01 AM EDT [facility] HGB 12.3(L) 13.7 - 17.5 g/dL LAB HEMATOLOGY METHOD 06/16/2025 1:01 AM EDT [facility] HCT 37.1(L) 40.0 - 51.0 % LAB HEMATOLOGY METHOD 06/16/2025 1:01 AM EDT [facility] Platelet Count 106(L) 155 - 369 10*3/uL LAB HEMATOLOGY METHOD 06/16/2025 1:01 AM EDT [facility] MCV 85 79 - 98 fL LAB HEMATOLOGY METHOD 06/16/2025 1:01 AM EDT [facility] MCH 28.2 26.0 - 32.0 pg LAB HEMATOLOGY METHOD 06/16/2025 1:01 AM EDT [facility] MCHC 33.2 30.7 - 35.5 g/dL LAB HEMATOLOGY METHOD 06/16/2025 1:01 AM EDT [facility] RDW 15.4(H) 11.5 - 14.5 % LAB HEMATOLOGY METHOD 06/16/2025 1:01 AM EDT [facility] MPV 10.8 8.8 - 12.5 fL LAB HEMATOLOGY METHOD 06/16/2025 1:01 AM EDT [facility] nRBC 0.0 <=0.0 per 100 WBCs LAB HEMATOLOGY METHOD 06/16/2025 1:01 AM EDT [facility] Blood Arterial blood specimen / Unknown Venipuncture / Unknown 06/16/2025 12:36 AM EDT 06/16/2025 12:48 AM EDT us Phillip Clark MD LAB BLOOD ORDERABLES Final R esult [facility] [address] [place] [address] * (ABNORMAL) Blood gas, arterial (06/16/2025 12:36 AM EDT) pH, Arterial 7.43(H) 7.31 - 7.42 LAB HEMATOLOGY METHOD 06/16/2025 12:58 AM EDT [facility] pCO2, Arterial 41 32 - 45 mmHg LAB HEMATOLOGY METHOD 06/16/2025 12:58 AM EDT [facility] pO2, Arterial 65(L) >80 mmHg LAB HEMATOLOGY METHOD 06/16/2025 12:58 AM EDT [facility] SO2, Measured, Arterial 94 94 - 98 % LAB HEMATOLOGY METHOD 06/16/2025 12:58 AM EDT [facility] Base Excess, Arterial 2.5 -2.0 - 3.0 mmol/L LAB HEMATOLOGY METHOD 06/16/2025 12:58 AM EDT [facility] Bicarbonate, Calculated, Arterial 27(H) 22 - 26 mmol/L LAB HEMATOLOGY METHOD 06/16/2025 12:58 AM EDT [facility] Hematocrit, Whole Blood 37.9(L) 40.0 - 51.0 % LAB HEMATOLOGY METHOD 06/16/2025 12:58 AM EDT [facility] Sodium, Whole Blood 133(L) 136 - 145 mmol/L LAB HEMATOLOGY METHOD 06/16/2025 12:58 AM EDT [facility] Potassium, Whole Blood 3.4(L) 3.6 - 4.9 mmol/L LAB HEMATOLOGY METHOD 06/16/2025 12:58 AM EDT [facility] Chloride, Whole Blood 100 97 - 107 mmol/L LAB HEMATOLOGY METHOD 06/16/2025 12:58 AM EDT [facility] Glucose, Whole Blood 124(H) 74 - 99 mg/dL LAB HEMATOLOGY METHOD 06/16/2025 12:58 AM EDT [facility] Ionized Calcium, Whole Blood 4.3(L) 4.6 - 5.1 mg/dL LAB HEMATOLOGY METHOD 06/16/2025 12:58 AM EDT [facility] Lactate, Arterial, Whole Blood 1.0 0.5 - 1.6 mmol/L LAB HEMATOLOGY METHOD 06/16/2025 12:58 AM EDT [facility] Blood Arterial blood specimen / Unknown Arterial Puncture / Unknown 06/16/2025 12:36 AM EDT 06/16/2025 12:55 AM EDT us Phillip Clark MD LAB BLOOD ORDERABLES Final R esult [facility] [address] [place] [address] * (ABNORMAL) POCT glucose meter (06/15/2025 8:00 PM EDT) [facility] POCT Glucose 120(H) 74 - 99 mg/dL [...] Comment 06/15/2025 8:01 PM EDT [facility] Talent Acquisition Specialist ID Svetlana Reilly 8:01 PM EDT [facility] Device ID [id number] 06/15/2025 8:01 PM EDT [facility] Specimen Type POC Capillary 06/15/2025 8:01 PM EDT [facility] Blood Capillary blood specimen / Unknown 06/15/2025 8:00 PM EDT 06/15/2025 8:01 PM EDT Phillip Clark MD LAB POINT OF CARE TE ST DOCKED DEVICE UNSOLICITED RESULTS Final Result Performing Organization Address City/[facility] Co de Phone Number [facility] [address] [place] [address] * (ABNORMAL) POCT glucose meter (06/15/2025 5:56 PM EDT) [facility] POCT Glucose 121(H) 74 - 99 mg/dL [...] for testing. Comment 06/15/2025 5:57 PM EDT [facility] Talent Acquisition Specialist ID Bony Thomas [phone] 5:57 PM EDT [facility] Device ID [id number] 06/15/2025 5:57 PM EDT [facility] Specimen Type POC Arterial 06/15/2025 5:57 PM EDT [facility] Blood Arterial blood specimen / Unknown 06/15/2025 5:56 PM EDT 06/15/2025 5:57 PM EDT us Phillip Clark MD LAB POINT OF CARE TE ST DOCKED DEVICE UNSOLICITED RESULTS Final Result [facility] [address] [place] [address] * Magnesium (06/15/2025 4:11 PM EDT) Magnesium, Plasma 2.1 1.9 - 2.4 mg/dL 06/15/2025 6:21 PM EDT [facility] Blood Venous blood specimen / Unknown Venipuncture / Unknown 06/15/2025 4:11 PM EDT 06/15/2025 4:39 PM EDT us Phillip Clark MD LAB BLOOD ORDERABLES Final R esult Performing Organization Address City/[facility]/ZIP Co de Phone Number [facility] [address] [place] [address] * Phosphorus (06/15/2025 4:11 PM EDT) Phosphorus, Plasma 2.9 2.5 - 4.5 mg/dL 06/15/2025 5:12 PM EDT [facility] Blood Venous blood specimen / Unknown Venipuncture / Unknown 06/15/2025 4:11 PM EDT 06/15/2025 4:39 PM EDT us Phillip Clark MD LAB BLOOD ORDERABLES Final R esult Performing Organization Address City/[facility]/ZIP Co de Phone Number [facility] [address] [place] [address] * (ABNORMAL) Basic metabolic panel (06/15/2025 4:11 PM EDT) Pathologist [facility] Glucose, Plasma 123(H) 74 - 99 mg/dL 06/15/2025 5:12 PM EDT [facility] BUN, Plasma 19 8 - 23 mg/dL 06/15/2025 5:12 PM EDT [facility] Creatinine, Plasma 0.88 0.70 - 1.20 mg/dL 06/15/2025 5:12 PM EDT [facility] BUN/Creatinine Ratio 22 06/15/2025 5:12 PM EDT [facility] Sodium, Plasma 133(L) 136 - 145 mmol/L 06/15/2025 5:12 PM EDT [facility] Potassium, Plasma 3.9 3.6 - 4.9 mmol/L 06/15/2025 5:12 PM EDT [facility] Chloride, Plasma 102 97 - 107 mmol/L 06/15/2025 5:12 PM EDT [facility] CO2, Plasma 23 22 - 29 mmol/L 06/15/2025 5:12 PM EDT [facility] Anion Gap 8 6 - 16 mmol/L 06/15/2025 5:12 PM EDT [facility] Total Calcium, Plasma 8.6(L) 8.9 - 10.2 mg/dL 06/15/2025 5:12 PM EDT [facility] eGFRcr 93.1 mL/min/1.7 3m*2 06/15/2025 5:12 PM EDT [facility] Comment:Reported eGFRcr in m L/min/1.73m2 is based the CKD-EPI 2020 equation that does not use a race coefficient. Blood Venous blood specimen / Unknown Venipuncture / Unknown 06/15/2025 4:11 PM EDT 06/15/2025 4:39 PM EDT us Phillip Clark MD LAB BLOOD ORDERABLES Final R esult [facility] [address] [place] [address] * (ABNORMAL) POCT glucose meter (06/15/2025 12:14 [...] Comment 06/15/2025 12:16 PM EDT [facility] Talent Acquisition Specialist ID Bony Thomas 025 12:16 PM EDT [facility] Device ID [id number] 06/15/2025 12:16 PM EDT [facility] Specimen Type POC Arterial 06/15/2025 12:16 PM EDT [facility] Blood Arterial blood specimen / Unknown 06/15/2025 12:14 PM EDT 06/15/2025 12:16 PM EDT Phillip Clark MD LAB POINT OF CARE TE ST DOCKED DEVICE UNSOLICITED RESULTS Final Result Performing Organization Address City/State/[facility] Co de Phone Number [facility] [address] [place] [address] * [facility], E/M 30-74 MINUTES (06/15/2025 9:19 [...] POCT glucose meter (06/15/2025 8:24 AM EDT) [facility] POCT Glucose 129(H) 74 - 99 mg/dL [...] Comment 06/15/2025 8:25 AM EDT [facility] Talent Acquisition Specialist ID Bony Thomas 025 8:25 AM EDT [facility] Device ID [id number] 06/15/2025 8:25 AM EDT [facility] Specimen Type POC Arterial 06/15/2025 8:25 AM EDT [facility] Blood Arterial blood specimen / Unknown 06/15/2025 8:24 AM EDT 06/15/2025 8:25 AM EDT us Phillip Clark MD LAB POINT OF CARE TE ST DOCKED DEVICE UNSOLICITED RESULTS Final Result [facility] [address] [place] [address] * (ABNORMAL) CBC and Differential (06/15/2025 8:18 AM EDT) [facility] WBC Count 12.56(H) 3.70 - 10.30 10*3/uL LAB HEMATOLOGY METHOD 06/15/2025 8:47 AM EDT [facility] RBC Count 4.60 4.60 - 6.10 10*6/uL LAB HEMATOLOGY METHOD 06/15/2025 8:47 AM EDT [facility] HGB 12.8(L) 13.7 - 17.5 g/dL LAB HEMATOLOGY METHOD 06/15/2025 8:47 AM EDT [facility] HCT 39.4(L) 40.0 - 51.0 % LAB HEMATOLOGY METHOD 06/15/2025 8:47 AM EDT [facility] [facility] Platelet Count 120(L) 155 - 369 10*3/uL LAB HEMATOLOGY METHOD 06/15/2025 8:47 AM EDT [facility] MCV 86 79 - 98 fL LAB HEMATOLOGY METHOD 06/15/2025 8:47 AM EDT [facility] MCH 27.8 26.0 - 32.0 pg LAB HEMATOLOGY METHOD 06/15/2025 8:47 AM EDT [facility] MCHC 32.5 30.7 - 35.5 g/dL LAB HEMATOLOGY METHOD 06/15/2025 8:47 AM EDT [facility] RDW 15.5(H) 11.5 - 14.5 % LAB HEMATOLOGY METHOD 06/15/2025 8:47 AM EDT [facility] MPV 10.6 8.8 - 12.5 fL LAB HEMATOLOGY METHOD 06/15/2025 8:47 AM EDT [facility] nRBC 0.0 <=0.0 per 100 WBCs LAB HEMATOLOGY METHOD 06/15/2025 8:47 AM EDT [facility] Differential Type Automated LAB HEMATOLOGY METHOD 06/15/2025 8:47 AM EDT [facility] Neutrophils % 84 % LAB HEMATOLOGY METHOD 06/15/2025 8:47 AM EDT [facility] Lymphocytes % 5 % LAB HEMATOLOGY METHOD 06/15/2025 8:47 AM EDT [facility] Monocytes % 10 % LAB HEMATOLOGY METHOD 06/15/2025 8:47 AM EDT [facility] Eosinophils % 0 % LAB HEMATOLOGY METHOD 06/15/2025 8:47 AM EDT [facility] Basophils % 0 % LAB HEMATOLOGY METHOD 06/15/2025 8:47 AM EDT [facility] Immature Granulocytes % 1 % LAB HEMATOLOGY METHOD 06/15/2025 8:47 AM EDT [facility] Neutrophils Absolute 10.59(H) 1.60 - 6.10 10*3/uL LAB HEMATOLOGY METHOD 06/15/2025 8:47 AM EDT [facility] Lymphocytes Absolute 0.60(L) 1.20 - 3.90 10*3/uL LAB HEMATOLOGY METHOD 06/15/2025 8:47 AM EDT [facility] Monocytes Absolute 1.29(H) 0.30 - 0.90 10*3/uL LAB HEMATOLOGY METHOD 06/15/2025 8:47 AM EDT [facility] Eosinophils Absolute 0.00 0.00 - 0.50 10*3/uL LAB HEMATOLOGY METHOD 06/15/2025 8:47 AM EDT [facility] Basophils Absolute 0.02 0.00 - 0.10 10*3/uL LAB HEMATOLOGY METHOD 06/15/2025 8:47 AM EDT [facility] Immature Granulocytes Absolute 0.06 0.00 - 0.06 10*3/uL LAB HEMATOLOGY METHOD 06/15/2025 8:47 AM EDT [facility] Blood Venous blood specimen / Unknown Venipuncture / Unknown 06/15/2025 8:18 AM EDT 06/15/2025 8:34 AM EDT Narrative [facility] - 06/15/2025 8:47 AM EDT Therapeutic decision making should be based on absolute values, rather than percentages. us Phillip Clark MD LAB BLOOD ORDERABLES Final R esult [facility] [address] [place] [address] * (ABNORMAL) Protime-INR (06/15/2025 6:40 AM EDT) Prothrombin Time 16.5(H) 12.0 - 14.3 sec LAB COAGULATION METHOD 06/15/2025 7:53 AM EDT [facility] INR 1.3(H) 0.9 - 1.1 LAB COAGULATION METHOD 06/15/2025 7:53 AM EDT [facility] Blood Arterial blood specimen / Unknown Venipuncture / Unknown 06/15/2025 6:40 AM EDT 06/15/2025 6:47 AM EDT Narrative [facility] - 06/15/2025 7:53 AM EDT [...] esult Performing Organization Address City/[facility] Co de Phone Number [facility] [address] [place] [address] * Ionized calcium, whole blood (06/15/2025 6:40 AM EDT) Ionized Calcium, Whole Blood 4.6 4.6 - 5.1 mg/dL LAB HEMATOLOGY METHOD 06/15/2025 6:50 AM EDT [facility] Blood Arterial blood specimen / Unknown Venipuncture / Unknown 06/15/2025 6:40 AM EDT 06/15/2025 6:48 AM EDT Phillip Clark MD LAB BLOOD ORDERABLES Final R esult Performing Organization Address [facility] Co de Phone Number [facility] [address] [place] [address] * ECG Adult - POD 1 (06/15/2025 5:20 AM EDT) EKG DIAGNOSIS CLASS Abnormal MUSE ECG Ventricular Rate 71 BPM MUSE ECG Atrial Rate 71 BPM MUSE ECG LA Interval 182 ms MUSE ECG QRSD Interval 108 ms MUSE ECG QT Interval 418 ms MUSE ECG QTC Interval 454 ms MUSE ECG P Hamilton 51 degrees MUSE ECG R Hamilton -48 degrees MUSE ECG T Wave Hamilton -12 degrees MUSE ECG Diagnosis Normal sinus rhythm MUSE ECG Diagnosis Left anterior fascicular block MUSE ECG Diagnosis Abnormal ECG MUSE ECG Diagnosis MUSE ECG Diagnosis Confirmed by Bimal Brambila ([id number]) on 06/15/2025 11:38:57 AM MUSE ECG 06/15/2025 5:20 AM EDT 06/15/2025 11:38 AM EDT Phillip Clark MD ECG ORDERABLES Final Result Performing Organization Address City/[facility] Co de Phone Number MUSE ECG * (ABNORMAL) Blood gas panel, arterial (06/15/2025 3:58 AM EDT) pH, Arterial 7.39 7.31 - 7.42 LAB HEMATOLOGY METHOD 06/15/2025 4:06 AM EDT [facility] pCO2, Arterial 39 32 - 45 mmHg LAB HEMATOLOGY METHOD 06/15/2025 4:06 AM EDT [facility] pO2, Arterial 79(L) >80 mmHg LAB HEMATOLOGY METHOD 06/15/2025 4:06 AM EDT [facility] SO2, Measured, Arterial 97 94 - 98 % LAB HEMATOLOGY METHOD 06/15/2025 4:06 AM EDT [facility] Base Excess, Arterial -1.2 -2.0 - 3.0 mmol/L LAB HEMATOLOGY METHOD 06/15/2025 4:06 AM EDT [facility] Bicarbonate, Calculated, Arterial 24 22 - 26 mmol/L LAB HEMATOLOGY METHOD 06/15/2025 4:06 AM EDT [facility] Hematocrit, Whole Blood 39.7(L) 40.0 - 51.0 % LAB HEMATOLOGY METHOD 06/15/2025 4:06 AM EDT [facility] Sodium, Whole Blood 134(L) 136 - 145 mmol/L LAB HEMATOLOGY METHOD 06/15/2025 4:06 AM EDT [facility] Potassium, Whole Blood 4.4 3.6 - 4.9 mmol/L LAB HEMATOLOGY METHOD 06/15/2025 4:06 AM EDT [facility] Chloride, Whole Blood 108(H) 97 - 107 mmol/L LAB HEMATOLOGY METHOD 06/15/2025 4:06 AM EDT [facility] Glucose, Whole Blood 132(H) 74 - 99 mg/dL LAB HEMATOLOGY METHOD 06/15/2025 4:06 AM EDT [facility] Ionized Calcium, Whole Blood 4.5(L) 4.6 - 5.1 mg/dL LAB HEMATOLOGY METHOD 06/15/2025 4:06 AM EDT [facility] Lactate, Arterial, Whole Blood 0.9 0.5 - 1.6 mmol/L LAB HEMATOLOGY METHOD 06/15/2025 4:06 AM EDT [facility] Blood Arterial blood specimen / Unknown Arterial Puncture / Unknown 06/15/2025 3:58 AM EDT 06/15/2025 4:06 AM EDT us Phillip Clark MD LAB BLOOD ORDERABLES Final R esult [facility] [address] [place] [address] * XR Chest 1 View (06/15/2025 2:53 [...] of NG tube. Right internal jugular approach Ashford-Shira catheter and mediastinal drain in unchanged position. [...] IMG XR PROCEDURES Final Resu lt * [facility], ADDL 30 MIN, [facility], ADDL 30 MIN (06/15/2025 12:21 [...] LAB HEMATOLOGY METHOD 06/15/2025 8:17 AM EDT [facility] Neutrophils % 85 % LAB HEMATOLOGY METHOD 06/15/2025 8:17 AM EDT [facility] Lymphocytes % 4 % LAB HEMATOLOGY METHOD 06/15/2025 8:17 AM EDT [facility] Monocytes % 10 % LAB HEMATOLOGY METHOD 06/15/2025 8:17 AM EDT [facility] Eosinophils % 0 % LAB HEMATOLOGY METHOD 06/15/2025 8:17 AM EDT [facility] Basophils % 0 % LAB HEMATOLOGY METHOD 06/15/2025 8:17 AM EDT [facility] Immature Granulocytes % 1 % LAB HEMATOLOGY METHOD 06/15/2025 8:17 AM EDT [facility] Immature Granulocytes Absolute 0.05 0.00 - 0.06 10*3/uL LAB HEMATOLOGY METHOD 06/15/2025 8:17 AM EDT [facility] Neutrophils Absolute 9.28(H) 1.60 - 6.10 10*3/uL LAB HEMATOLOGY METHOD 06/15/2025 8:17 AM EDT [facility] Lymphocytes Absolute 0.45(L) 1.20 - 3.90 10*3/uL LAB HEMATOLOGY METHOD 06/15/2025 8:17 AM EDT [facility] Monocytes Absolute 1.14(H) 0.30 - 0.90 10*3/uL LAB HEMATOLOGY METHOD 06/15/2025 8:17 AM EDT [facility] Basophils Absolute 0.02 0.00 - 0.10 10*3/uL LAB HEMATOLOGY METHOD 06/15/2025 8:17 AM EDT [facility] Eosinophils Absolute 0.00 0.00 - 0.50 10*3/uL LAB HEMATOLOGY METHOD 06/15/2025 8:17 AM EDT [facility] Blood Venous blood specimen / Unknown Venipuncture / Unknown 06/15/2025 12:20 AM EDT 06/15/2025 12:26 AM EDT Phillip Clark MD LAB BLOOD ORDERABLES Final R esult [facility] [address] [place] [address] * Phosphorus (06/15/2025 12:20 AM EDT) Phosphorus, Plasma 2.6 2.5 - 4.5 mg/dL 06/15/2025 8:33 AM EDT [facility] Blood Venous blood specimen / Unknown Venipuncture / Unknown 06/15/2025 12:20 AM EDT 06/15/2025 12:26 AM EDT Phillip Clark MD LAB BLOOD ORDERABLES Final R esult [facility] [address] [place] [address] * (ABNORMAL) Magnesium (06/15/2025 12:20 AM EDT) Magnesium, Plasma 2.5(H) 1.9 - 2.4 mg/dL 06/15/2025 7:37 AM EDT [facility] Blood Venous blood specimen / Unknown Venipuncture / Unknown 06/15/2025 12:20 AM EDT 06/15/2025 12:26 AM EDT us Phillip Clark MD LAB BLOOD ORDERABLES Final R esult [facility] [address] [place] [address] * (ABNORMAL) Basic metabolic panel (06/15/2025 12:20 AM EDT) Glucose, Plasma 140(H) 74 - 99 mg/dL 06/15/2025 7:37 AM EDT [facility] BUN, Plasma 17 8 - 23 mg/dL 06/15/2025 7:37 AM EDT [facility] Creatinine, Plasma 0.84 0.70 - 1.20 mg/dL 06/15/2025 7:37 AM EDT [facility] BUN/Creatinine Ratio 20 06/15/2025 7:37 AM EDT [facility] Sodium, Plasma 138 136 - 145 mmol/L 06/15/2025 7:37 AM EDT [facility] Potassium, Plasma 4.6 3.6 - 4.9 mmol/L 06/15/2025 7:37 AM EDT [facility] Chloride, Plasma 107 97 - 107 mmol/L 06/15/2025 7:37 AM EDT [facility] CO2, Plasma 18(L) 22 - 29 mmol/L 06/15/2025 7:37 AM EDT [facility] Anion Gap 13 6 - 16 mmol/L 06/15/2025 7:37 AM EDT [facility] Total Calcium, Plasma 8.0(L) 8.9 - 10.2 mg/dL 06/15/2025 7:37 AM EDT [facility] eGFRcr 94.4 mL/min/1.7 3m*2 06/15/2025 7:37 AM EDT [facility] Comment:Reported eGFRcr in m L/min/1.73m2 is based the CKD-EPI 2020 equation that does not use a race coefficient. Blood Venous blood specimen / Unknown Venipuncture / Unknown 06/15/2025 12:20 AM EDT 06/15/2025 12:26 AM EDT us Phillip Clark MD LAB BLOOD ORDERABLES Final R esult [facility] [address] [place] [address] * (ABNORMAL) CBC W/O Differential (06/15/2025 12:20 AM EDT) WBC Count 10.94(H) 3.70 - 10.30 10*3/uL LAB HEMATOLOGY METHOD 06/15/2025 8:32 AM EDT [facility] RBC Count 4.94 4.60 - 6.10 10*6/uL LAB HEMATOLOGY METHOD 06/15/2025 8:32 AM EDT [facility] HGB 13.6(L) 13.7 - 17.5 g/dL LAB HEMATOLOGY METHOD 06/15/2025 8:32 AM EDT [facility] HCT 41.0 40.0 - 51.0 % LAB HEMATOLOGY METHOD 06/15/2025 8:32 AM EDT [facility] Platelet Count 142(L) 155 - 369 10*3/uL LAB HEMATOLOGY METHOD 06/15/2025 8:32 AM EDT [facility] MCV 87 79 - 98 fL LAB HEMATOLOGY METHOD 06/15/2025 8:32 AM EDT [facility] MCH 27.5 26.0 - 32.0 pg LAB HEMATOLOGY METHOD 06/15/2025 8:32 AM EDT [facility] MCHC 31.8 30.7 - 35.5 g/dL LAB HEMATOLOGY METHOD 06/15/2025 8:32 AM EDT [facility] RDW 15.6(H) 11.5 - 14.5 % LAB HEMATOLOGY METHOD 06/15/2025 8:32 AM EDT [facility] MPV 11.1 8.8 - 12.5 fL LAB HEMATOLOGY METHOD 06/15/2025 8:32 AM EDT [facility] nRBC 0.0 <=0.0 per 100 WBCs LAB HEMATOLOGY METHOD 06/15/2025 8:32 AM EDT [facility] Blood Venous blood specimen / Unknown Venipuncture / Unknown 06/15/2025 12:20 AM EDT 06/15/2025 12:26 AM EDT Phillip Clark MD LAB BLOOD ORDERABLES Final R esult Performing Organization Address City/[facility]/ZIP Co de Phone Number [facility] [address] [place] [address] * Potassium, Plasma (06/15/2025 12:20 AM EDT) Potassium, Plasma 4.5 3.6 - 4.9 mmol/L 06/15/2025 12:51 AM EDT [facility] Blood Venous blood specimen / Unknown Venipuncture / Unknown 06/15/2025 12:20 AM EDT 06/15/2025 12:26 AM EDT Phillip Clark MD LAB BLOOD ORDERABLES Final R esult Performing Organization Address City/[facility] Co de Phone Number [facility] [address] [place] [address] * Hematocrit (06/15/2025 12:20 AM EDT) HCT 41.0 40.0 - 51.0 % LAB HEMATOLOGY METHOD 06/15/2025 12:36 AM EDT [facility] Blood Venous blood specimen / Unknown Venipuncture / Unknown 06/15/2025 12:20 AM EDT 06/15/2025 12:26 AM EDT us Phillip Clark MD LAB BLOOD ORDERABLES Final R esult Performing Organization Address City/[facility]/ZIP Co de Phone Number [facility] [address] [place] [address] * (ABNORMAL) Hemoglobin (06/15/2025 12:20 AM EDT) Pathologist [facility] HGB 13.6(L) 13.7 - 17.5 g/dL LAB HEMATOLOGY METHOD 06/15/2025 12:36 AM EDT [facility] Blood Venous blood specimen / Unknown Venipuncture / Unknown 06/15/2025 12:20 AM EDT 06/15/2025 12:26 AM EDT us Phillip Clark MD LAB BLOOD ORDERABLES Final R esult [facility] [address] [place] [address] * (ABNORMAL) Blood gas, arterial (06/15/2025 12:20 AM EDT) Pathologist [facility] pH, Arterial 7.37 7.31 - 7.42 LAB HEMATOLOGY METHOD 06/15/2025 12:37 AM EDT [facility] pCO2, Arterial 40 32 - 45 mmHg LAB HEMATOLOGY METHOD 06/15/2025 12:37 AM EDT [facility] pO2, Arterial 65(L) >80 mmHg LAB HEMATOLOGY METHOD 06/15/2025 12:37 AM EDT [facility] SO2, Measured, Arterial 94 94 - 98 % LAB HEMATOLOGY METHOD 06/15/2025 12:37 AM EDT [facility] Base Excess, Arterial -1.8 -2.0 - 3.0 mmol/L LAB HEMATOLOGY METHOD 06/15/2025 12:37 AM EDT [facility] Bicarbonate, Calculated, Arterial 23 22 - 26 mmol/L LAB HEMATOLOGY METHOD 06/15/2025 12:37 AM EDT [facility] Hematocrit, Whole Blood 41.1 40.0 - 51.0 % LAB HEMATOLOGY METHOD 06/15/2025 12:37 AM EDT [facility] Sodium, Whole Blood 137 136 - 145 mmol/L LAB HEMATOLOGY METHOD 06/15/2025 12:37 AM EDT [facility] Potassium, Whole Blood 4.2 3.6 - 4.9 mmol/L LAB HEMATOLOGY METHOD 06/15/2025 12:37 AM EDT [facility] Chloride, Whole Blood 110(H) 97 - 107 mmol/L LAB HEMATOLOGY METHOD 06/15/2025 12:37 AM EDT [facility] Glucose, Whole Blood 140(H) 74 - 99 mg/dL LAB HEMATOLOGY METHOD 06/15/2025 12:37 AM EDT [facility] Ionized Calcium, Whole Blood 4.5(L) 4.6 - 5.1 mg/dL LAB HEMATOLOGY METHOD 06/15/2025 12:37 AM EDT [facility] Lactate, Arterial, Whole Blood 1.8(H) 0.5 - 1.6 mmol/L LAB HEMATOLOGY METHOD 06/15/2025 12:37 AM EDT [facility] Blood Arterial blood specimen / Unknown Arterial Puncture / Unknown 06/15/2025 12:20 AM EDT 06/15/2025 12:34 AM EDT us Phillip Clark MD LAB BLOOD ORDERABLES Final R esult [facility] [address] [place] [address] * (ABNORMAL) Blood gas, arterial (06/14/2025 8:04 PM EDT) pH, Arterial 7.35 7.31 - 7.42 LAB HEMATOLOGY METHOD 06/14/2025 8:19 PM EDT [facility] pCO2, Arterial 39 32 - 45 mmHg LAB HEMATOLOGY METHOD 06/14/2025 8:19 PM EDT [facility] pO2, Arterial 88 >80 mmHg LAB HEMATOLOGY METHOD 06/14/2025 8:19 PM EDT [facility] SO2, Measured, Arterial 98 94 - 98 % LAB HEMATOLOGY METHOD 06/14/2025 8:19 PM EDT [facility] Base Excess, Arterial -3.7(L) -2.0 - 3.0 mmol/L LAB HEMATOLOGY METHOD 06/14/2025 8:19 PM EDT [facility] Bicarbonate, Calculated, Arterial 22 22 - 26 mmol/L LAB HEMATOLOGY METHOD 06/14/2025 8:19 PM EDT [facility] Hematocrit, Whole Blood 44.7 40.0 - 51.0 % LAB HEMATOLOGY METHOD 06/14/2025 8:19 PM EDT [facility] Sodium, Whole Blood 138 136 - 145 mmol/L LAB HEMATOLOGY METHOD 06/14/2025 8:19 PM EDT [facility] Potassium, Whole Blood 4.5 3.6 - 4.9 mmol/L LAB HEMATOLOGY METHOD 06/14/2025 8:19 PM EDT [facility] Chloride, Whole Blood 109(H) 97 - 107 mmol/L LAB HEMATOLOGY METHOD 06/14/2025 8:19 PM EDT [facility] Glucose, Whole Blood 185(H) 74 - 99 mg/dL LAB HEMATOLOGY METHOD 06/14/2025 8:19 PM EDT [facility] Ionized Calcium, Whole Blood 4.5(L) 4.6 - 5.1 mg/dL LAB HEMATOLOGY METHOD 06/14/2025 8:19 PM EDT [facility] Lactate, Arterial, Whole Blood 3.0(H) 0.5 - 1.6 mmol/L LAB HEMATOLOGY METHOD 06/14/2025 8:19 PM EDT [facility] Blood Arterial blood specimen / Unknown Arterial Puncture / Unknown 06/14/2025 8:04 PM EDT 06/14/2025 8:14 PM EDT us Phillip Clark MD LAB BLOOD ORDERABLES Final R esult [facility] [address] [place] [address] * Potassium (06/14/2025 8:03 PM EDT) Potassium, Plasma 4.9 3.6 - 4.9 mmol/L 06/14/2025 8:33 PM EDT [facility] Blood Arterial blood specimen / Unknown Venipuncture / Unknown 06/14/2025 8:03 PM EDT 06/14/2025 8:11 PM EDT us Phillip Clark MD LAB BLOOD ORDERABLES Final R esult [facility] [address] [place] [address] * (ABNORMAL) Magnesium (06/14/2025 8:03 PM EDT) Magnesium, Plasma 2.7(H) 1.9 - 2.4 mg/dL 06/14/2025 8:40 PM EDT [facility] Blood Arterial blood specimen / Unknown Venipuncture / Unknown 06/14/2025 8:03 PM EDT 06/14/2025 8:11 PM EDT us Phillip Clark MD LAB BLOOD ORDERABLES Final R esult [facility] [address] [place] [address] * (ABNORMAL) CBC (06/14/2025 8:03 PM EDT) WBC Count 13.98(H) 3.70 - 10.30 10*3/uL LAB HEMATOLOGY METHOD 06/14/2025 8:20 PM EDT [facility] RBC Count 5.14 4.60 - 6.10 10*6/uL LAB HEMATOLOGY METHOD 06/14/2025 8:20 PM EDT [facility] HGB 14.5 13.7 - 17.5 g/dL LAB HEMATOLOGY METHOD 06/14/2025 8:20 PM EDT [facility] HCT 43.9 40.0 - 51.0 % LAB HEMATOLOGY METHOD 06/14/2025 8:20 PM EDT [facility] Platelet Count 158 155 - 369 10*3/uL LAB HEMATOLOGY METHOD 06/14/2025 8:20 PM EDT [facility] MCV 85 79 - 98 fL LAB HEMATOLOGY METHOD 06/14/2025 8:20 PM EDT [facility] MCH 28.2 26.0 - 32.0 pg LAB HEMATOLOGY METHOD 06/14/2025 8:20 PM EDT [facility] MCHC 33.0 30.7 - 35.5 g/dL LAB HEMATOLOGY METHOD 06/14/2025 8:20 PM EDT [facility] RDW 14.9(H) 11.5 - 14.5 % LAB HEMATOLOGY METHOD 06/14/2025 8:20 PM EDT [facility] MPV 10.8 8.8 - 12.5 fL LAB HEMATOLOGY METHOD 06/14/2025 8:20 PM EDT [facility] nRBC 0.0 <=0.0 per 100 WBCs LAB HEMATOLOGY METHOD 06/14/2025 8:20 PM EDT [facility] Blood Arterial blood specimen / Unknown Venipuncture / Unknown 06/14/2025 8:03 PM EDT 06/14/2025 8:11 PM EDT us Phillip Clark MD LAB BLOOD ORDERABLES Final R esult [facility] [address] [place] [address] * (ABNORMAL) Basic metabolic panel (06/14/2025 8:03 PM EDT) Glucose, Plasma 194(H) 74 - 99 mg/dL 06/14/2025 8:40 PM EDT [facility] BUN, Plasma 16 8 - 23 mg/dL 06/14/2025 8:40 PM EDT [facility] Creatinine, Plasma 0.85 0.70 - 1.20 mg/dL 06/14/2025 8:40 PM EDT [facility] BUN/Creatinine Ratio 19 06/14/2025 8:40 PM EDT [facility] Sodium, Plasma 139 136 - 145 mmol/L 06/14/2025 8:40 PM EDT [facility] Potassium, Plasma 5.0(H) 3.6 - 4.9 mmol/L 06/14/2025 8:40 PM EDT [facility] Chloride, Plasma 109(H) 97 - 107 mmol/L 06/14/2025 8:40 PM EDT [facility] CO2, Plasma 20(L) 22 - 29 mmol/L 06/14/2025 8:40 PM EDT [facility] Anion Gap 10 6 - 16 mmol/L 06/14/2025 8:40 PM EDT [facility] Total Calcium, Plasma 8.2(L) 8.9 - 10.2 mg/dL 06/14/2025 8:40 PM EDT [facility] eGFRcr 94.1 mL/min/1.7 3m*2 06/14/2025 8:40 PM EDT [facility] Comment:Reported eGFRcr in m L/min/1.73m2 is based the CKD-EPI 2020 equation that does not use a race coefficient. Blood Arterial blood specimen / Unknown Venipuncture / Unknown 06/14/2025 8:03 PM EDT 06/14/2025 8:11 PM EDT us Phillip Clark MD LAB BLOOD ORDERABLES Final R esult [facility] [address] [place] [address] * (ABNORMAL) Blood gas panel, arterial (06/14/2025 6:47 PM EDT) pH, Arterial 7.30(L) 7.31 - 7.42 LAB HEMATOLOGY METHOD 06/14/2025 6:57 PM EDT [facility] pCO2, Arterial 41 32 - 45 mmHg LAB HEMATOLOGY METHOD 06/14/2025 6:57 PM EDT [facility] pO2, Arterial 70(L) >80 mmHg LAB HEMATOLOGY METHOD 06/14/2025 6:57 PM EDT [facility] SO2, Measured, Arterial 94 94 - 98 % LAB HEMATOLOGY METHOD 06/14/2025 6:57 PM EDT [facility] Base Excess, Arterial -5.6(L) -2.0 - 3.0 mmol/L LAB HEMATOLOGY METHOD 06/14/2025 6:57 PM EDT [facility] Bicarbonate, Calculated, Arterial 21(L) 22 - 26 mmol/L LAB HEMATOLOGY METHOD 06/14/2025 6:57 PM EDT [facility] Hematocrit, Whole Blood 45.5 40.0 - 51.0 % LAB HEMATOLOGY METHOD 06/14/2025 6:57 PM EDT [facility] Sodium, Whole Blood 138 136 - 145 mmol/L LAB HEMATOLOGY METHOD 06/14/2025 6:57 PM EDT [facility] Potassium, Whole Blood 4.4 3.6 - 4.9 mmol/L LAB HEMATOLOGY METHOD 06/14/2025 6:57 PM EDT [facility] Chloride, Whole Blood 109(H) 97 - 107 mmol/L LAB HEMATOLOGY METHOD 06/14/2025 6:57 PM EDT [facility] Glucose, Whole Blood 209(H) 74 - 99 mg/dL LAB HEMATOLOGY METHOD 06/14/2025 6:57 PM EDT [facility] Ionized Calcium, Whole Blood 4.6 4.6 - 5.1 mg/dL LAB HEMATOLOGY METHOD 06/14/2025 6:57 PM EDT [facility] Lactate, Arterial, Whole Blood 3.9(H) 0.5 - 1.6 mmol/L LAB HEMATOLOGY METHOD 06/14/2025 6:57 PM EDT [facility] Blood Arterial blood specimen / Unknown Arterial Puncture / Unknown 06/14/2025 6:47 PM EDT 06/14/2025 6:56 PM EDT us Phillip lCark MD LAB BLOOD ORDERABLES Final R esult [facility] [address] [place] [address] * [facility], E/M 30-74 MINUTES (06/14/2025 5:35 [...] LAB HEMATOLOGY METHOD 06/14/2025 4:12 PM EDT [facility] pCO2, Arterial 43 32 - 45 mmHg LAB HEMATOLOGY METHOD 06/14/2025 4:12 PM EDT [facility] pO2, Arterial 126 >80 mmHg LAB HEMATOLOGY METHOD 06/14/2025 4:12 PM EDT [facility] SO2, Measured, Arterial 99(H) 94 - 98 % LAB HEMATOLOGY METHOD 06/14/2025 4:12 PM EDT [facility] Base Excess, Arterial -5.8(L) -2.0 - 3.0 mmol/L LAB HEMATOLOGY METHOD 06/14/2025 4:12 PM EDT [facility] Bicarbonate, Calculated, Arterial 21(L) 22 - 26 mmol/L LAB HEMATOLOGY METHOD 06/14/2025 4:12 PM EDT [facility] Hematocrit, Whole Blood 43.9 40.0 - 51.0 % LAB HEMATOLOGY METHOD 06/14/2025 4:12 PM EDT [facility] Sodium, Whole Blood 139 136 - 145 mmol/L LAB HEMATOLOGY METHOD 06/14/2025 4:12 PM EDT [facility] Potassium, Whole Blood 3.8 3.6 - 4.9 mmol/L LAB HEMATOLOGY METHOD 06/14/2025 4:12 PM EDT [facility] Chloride, Whole Blood 109(H) 97 - 107 mmol/L LAB HEMATOLOGY METHOD 06/14/2025 4:12 PM EDT [facility] Glucose, Whole Blood 179(H) 74 - 99 mg/dL LAB HEMATOLOGY METHOD 06/14/2025 4:12 PM EDT [facility] Ionized Calcium, Whole Blood 4.6 4.6 - 5.1 mg/dL LAB HEMATOLOGY METHOD 06/14/2025 4:12 PM EDT [facility] Lactate, Arterial, Whole Blood 4.3(H) 0.5 - 1.6 mmol/L LAB HEMATOLOGY METHOD 06/14/2025 4:12 PM EDT [facility] Blood Arterial blood specimen / Unknown Arterial Puncture / Unknown 06/14/2025 3:57 PM EDT 06/14/2025 4:11 PM EDT Phillip Clark MD LAB BLOOD ORDERABLES Final R esult [facility] [address] [place] [address] * (ABNORMAL) Blood gas panel with oximetry, mixed venous (06/14/2025 3:00 PM EDT) pH, Mixed Venous 7.28(L) 7.32 - 7.43 LAB HEMATOLOGY METHOD 06/14/2025 3:24 PM EDT [facility] pCO2, Mixed Venous 47 40 - 55 mmHg LAB HEMATOLOGY METHOD 06/14/2025 3:24 PM EDT [facility] pO2, Mixed Venous 54(H) 25 - 40 mmHg LAB HEMATOLOGY METHOD 06/14/2025 3:24 PM EDT [facility] SO2, Measured, Mixed Venous 84(H) 65 - 80 % LAB HEMATOLOGY METHOD 06/14/2025 3:24 PM EDT [facility] Bicarbonate, Calculated, Mixed Venous 22 22 - 26 mmol/L LAB HEMATOLOGY METHOD 06/14/2025 3:24 PM EDT [facility] Base Excess, Mixed Venous -4.7(L) -2.0 - 3.0 mmol/L LAB HEMATOLOGY METHOD 06/14/2025 3:24 PM EDT [facility] Hematocrit, Whole Blood 43.0 40.0 - 51.0 % LAB HEMATOLOGY METHOD 06/14/2025 3:24 PM EDT [facility] Sodium, Whole Blood 139 136 - 145 mmol/L LAB HEMATOLOGY METHOD 06/14/2025 3:24 PM EDT [facility] Potassium, Whole Blood 3.7 3.6 - 4.9 mmol/L LAB HEMATOLOGY METHOD 06/14/2025 3:24 PM EDT [facility] Chloride, Whole Blood 110(H) 97 - 107 mmol/L LAB HEMATOLOGY METHOD 06/14/2025 3:24 PM EDT [facility] Ionized Calcium, Whole Blood 4.6 4.6 - 5.1 mg/dL LAB HEMATOLOGY METHOD 06/14/2025 3:24 PM EDT [facility] Glucose, Whole Blood 149(H) 74 - 99 mg/dL LAB HEMATOLOGY METHOD 06/14/2025 3:24 PM EDT [facility] Oxyhemoglobin, Mixed Venous, Whole Blood 81.9(H) 40.0 - 70.0 % LAB HEMATOLOGY METHOD 06/14/2025 3:24 PM EDT [facility] Hemoglobin Reduced, Mixed Venous, Whole Blood 16.1 % LAB HEMATOLOGY METHOD 06/14/2025 3:24 PM EDT [facility] Total Hemoglobin, Mixed Venous, Whole Blood 14.0 13.7 - 17.5 g/dL LAB HEMATOLOGY METHOD 06/14/2025 3:24 PM EDT [facility] Blood Mixed venous blood specimen / Unknown Venipuncture / Unknown 06/14/2025 3:00 PM EDT 06/14/2025 3:23 PM EDT us Phillip Clark MD LAB BLOOD ORDERABLES Final R esult [facility] [address] [place] [address] * XR Abdomen 1 View (06/14/2025 2:57 [...] Detected Not Detected 06/15/2025 12:[address] [facility] Swab (Axilla and Groin) Non-blood Collection / Unknown 06/14/2025 2:37 PM EDT 06/14/2025 3:10 PM EDT Narrative [facility] - 06/15/2025 12:46 PM EDT This PCR assay was developed and its performance characteristics determined by [facility] as appropriate for clinical purposes. This assay has not been cleared or approved by the FDA, but is performed in a CLIA regulated laboratory that is qualified to perform high-complexity testing. Phillip Clark MD LAB MICROBIOLOGY - GENERAL O RDERABLES Final Result [facility] [address] [place] [address] * Multi Drug Resistance Test (06/14/2025 2:37 PM EDT) Pathologist [facility] Culture No growth at day 1 06/15/2025 4:03 PM EDT [facility] Swab (Nares and Smita Rectal) Non-blood Collection / Unknown 06/14/2025 2:37 PM EDT 06/14/2025 3:10 PM EDT Narrative [facility] - 06/15/2025 4:03 PM EDT This test was developed and its performance characteristics determined by the [facility]. Although the media is FDA-approved, it is not FDA-approved for all specimen types submitted. The FDA has determined that such clearance or approval is not necessary. This test is used for surveillance purposes. It should not be regarded as investigational or for research. The [facility] is certified under the Clinical Laboratory Improvement Amendments of 1988 (CLIA-88) as qualified to perform high complexity clinical laboratory testing. Phillip Clark MD LAB MICROBIOLOGY - GENERAL O RDERABLES Final Result [facility] [address] [place] [address] * (ABNORMAL) Blood gas, arterial (06/14/2025 2:37 PM EDT) Pathologist [facility] pH, Arterial 7.31 7.31 - 7.42 LAB HEMATOLOGY METHOD 06/14/2025 2:58 PM EDT [facility] pCO2, Arterial 42 32 - 45 mmHg LAB HEMATOLOGY METHOD 06/14/2025 2:58 PM EDT [facility] pO2, Arterial 154 >80 mmHg LAB HEMATOLOGY METHOD 06/14/2025 2:58 PM EDT [facility] SO2, Measured, Arterial 100(H) 94 - 98 % LAB HEMATOLOGY METHOD 06/14/2025 2:58 PM EDT [facility] Base Excess, Arterial -5.1(L) -2.0 - 3.0 mmol/L LAB HEMATOLOGY METHOD 06/14/2025 2:58 PM EDT [facility] Bicarbonate, Calculated, Arterial 21(L) 22 - 26 mmol/L LAB HEMATOLOGY METHOD 06/14/2025 2:58 PM EDT [facility] Hematocrit, Whole Blood 43.5 40.0 - 51.0 % LAB HEMATOLOGY METHOD 06/14/2025 2:58 PM EDT [facility] Sodium, Whole Blood 139 136 - 145 mmol/L LAB HEMATOLOGY METHOD 06/14/2025 2:58 PM EDT [facility] Potassium, Whole Blood 3.6 3.6 - 4.9 mmol/L LAB HEMATOLOGY METHOD 06/14/2025 2:58 PM EDT [facility] Chloride, Whole Blood 110(H) 97 - 107 mmol/L LAB HEMATOLOGY METHOD 06/14/2025 2:58 PM EDT [facility] Glucose, Whole Blood 131(H) 74 - 99 mg/dL LAB HEMATOLOGY METHOD 06/14/2025 2:58 PM EDT [facility] Ionized Calcium, Whole Blood 4.7 4.6 - 5.1 mg/dL LAB HEMATOLOGY METHOD 06/14/2025 2:58 PM EDT [facility] Lactate, Arterial, Whole Blood 5.0(H) 0.5 - 1.6 mmol/L LAB HEMATOLOGY METHOD 06/14/2025 2:58 PM EDT [facility] Blood Arterial blood specimen / Unknown Arterial Puncture / Unknown 06/14/2025 2:37 PM EDT 06/14/2025 2:57 PM EDT us Phillip Clark MD LAB BLOOD ORDERABLES Final R esult [facility] [address] [place] [address] * ECG Adult - Upon Admissoin to CVICU (06/14/2025 2:36 PM EDT) EKG DIAGNOSIS CLASS Abnormal MUSE ECG Ventricular Rate 61 BPM MUSE ECG Atrial Rate 61 BPM MUSE ECG LA Interval 176 ms MUSE ECG QRSD Interval 154 ms MUSE ECG QT Interval 520 ms MUSE ECG QTC Interval 523 ms MUSE ECG P [place] 58 degrees MUSE ECG R [place] 113 degrees MUSE ECG T Wave [place] -67 degrees MUSE ECG Diagnosis Sinus rhythm with occasional ventricular-paced complexes MUSE ECG Diagnosis Suspect unspecified pacemaker failure MUSE ECG Diagnosis Nonspecific intraventricular block MUSE ECG Diagnosis Minimal voltage criteria for LVH, may be normal variant ( [place] product ) MUSE ECG Diagnosis Abnormal ECG MUSE ECG Diagnosis MUSE ECG Diagnosis Confirmed by Brenton Mejia ([id number]) on 06/14/2025 3:39:18 PM MUSE ECG 06/14/2025 2:36 PM EDT 06/14/2025 3:39 PM EDT Phillip Clark MD ECG ORDERABLES Final Result Performing Organization Address City/[facility]/ZIP Co de Phone Number MUSE ECG * Potassium, Plasma (06/14/2025 2:36 PM EDT) Potassium, Plasma 3.8 3.6 - 4.9 mmol/L 06/14/2025 4:13 PM EDT [facility] Comment:Hemolyzed, result ma y be falsely increased. Blood Venous blood specimen / Unknown Venipuncture / Unknown 06/14/2025 2:36 PM EDT 06/14/2025 3:20 PM EDT Phillip Clark MD LAB BLOOD ORDERABLES Final R esult Performing Organization Address [facility] Co de Phone Number [facility] [address] [place] [address] * Hematocrit (06/14/2025 2:36 PM EDT) [facility] HCT 42.6 40.0 - 51.0 % LAB HEMATOLOGY METHOD 06/14/2025 4:38 PM EDT [facility] Blood Venous blood specimen / Unknown Venipuncture / Unknown 06/14/2025 2:36 PM EDT 06/14/2025 4:17 PM EDT Phillip Clark MD LAB BLOOD ORDERABLES Final R esult Performing Organization Address City/[facility]/ZIP Co de Phone Number [facility] [address] [place] [address] * Hemoglobin (06/14/2025 2:36 PM EDT) HGB 13.9 13.7 - 17.5 g/dL LAB HEMATOLOGY METHOD 06/14/2025 4:38 PM EDT [facility] Blood Venous blood specimen / Unknown Venipuncture / Unknown 06/14/2025 2:36 PM EDT 06/14/2025 4:17 PM EDT Phillip Clark MD LAB BLOOD ORDERABLES Final R esult Performing Organization Address [facility]/ZIP Co de Phone Number [facility] [address] [place] [address] * APTT (06/14/2025 2:36 PM EDT) aPTT 29 25 - 35 sec LAB COAGULATION METHOD 06/14/2025 4:11 PM EDT [facility] Blood Venous blood specimen / Unknown Venipuncture / Unknown 06/14/2025 2:36 PM EDT 06/14/2025 3:18 PM EDT Phillip Clark MD LAB BLOOD ORDERABLES Final R esult Performing Organization Address City/[facility] Co de Phone Number [facility] [address] [place] [address] * (ABNORMAL) Protime-INR (06/14/2025 2:36 PM EDT) Prothrombin Time 16.6(H) 12.0 - 14.3 sec LAB COAGULATION METHOD 06/14/2025 4:11 PM EDT [facility] INR 1.3(H) 0.9 - 1.1 LAB COAGULATION METHOD 06/14/2025 4:11 PM EDT [facility] Blood Venous blood specimen / Unknown Venipuncture / Unknown 06/14/2025 2:36 PM EDT 06/14/2025 3:18 PM EDT Narrative [facility] - 06/14/2025 4:11 PM EDT [...] ORDERABLES Final R esult Performing Organization Address [facility] Co de Phone Number [facility] [address] [place] [address] * (ABNORMAL) Phosphorus (06/14/2025 2:36 PM EDT) Phosphorus, Plasma 2.3(L) 2.5 - 4.5 mg/dL 06/14/2025 4:13 PM EDT [facility] Blood Venous blood specimen / Unknown Venipuncture / Unknown 06/14/2025 2:36 PM EDT 06/14/2025 3:20 PM EDT Phillip Clark MD LAB BLOOD ORDERABLES Final R esult Performing Organization Address [facility] Phone Number [facility] [address] [place] [address] * (ABNORMAL) Magnesium (06/14/2025 2:36 PM EDT) Magnesium, Plasma 3.2(H) 1.9 - 2.4 mg/dL 06/14/2025 6:55 PM EDT [facility] Blood Venous blood specimen / Unknown Venipuncture / Unknown 06/14/2025 2:36 PM EDT 06/14/2025 3:20 PM EDT Phillip Clark MD LAB BLOOD ORDERABLES Final R esult Performing Organization Address [facility] Co de Phone Number [facility] [address] [place] [address] * (ABNORMAL) Basic metabolic panel (06/14/2025 2:36 PM EDT) Glucose, Plasma 134(H) 74 - 99 mg/dL 06/14/2025 4:13 PM EDT [facility] BUN, Plasma 14 8 - 23 mg/dL 06/14/2025 4:13 PM EDT [facility] Creatinine, Plasma 0.83 0.70 - 1.20 mg/dL 06/14/2025 4:13 PM EDT [facility] BUN/Creatinine Ratio 17 06/14/2025 4:13 PM EDT [facility] Sodium, Plasma 140 136 - 145 mmol/L 06/14/2025 4:13 PM EDT [facility] Potassium, Plasma 3.8 3.6 - 4.9 mmol/L 06/14/2025 4:13 PM EDT [facility] Comment:Hemolyzed, result ma y be falsely increased. Chloride, Plasma 108(H) 97 - 107 mmol/L 06/14/2025 4:13 PM EDT [facility] CO2, Plasma 19(L) 22 - 29 mmol/L 06/14/2025 4:13 PM EDT [facility] Anion Gap 13 6 - 16 mmol/L 06/14/2025 4:13 PM EDT [facility] Total Calcium, Plasma 8.3(L) 8.9 - 10.2 mg/dL 06/14/2025 4:13 PM EDT [facility] eGFRcr 94.7 mL/min/1.7 3m*2 06/14/2025 4:13 PM EDT [facility] Comment:Reported eGFRcr in m L/min/1.73m2 is based the CKD-EPI 2020 equation that does not use a race coefficient. Blood Venous blood specimen / Unknown Venipuncture / Unknown 06/14/2025 2:36 PM EDT 06/14/2025 3:20 PM EDT us Phillip Clark MD LAB BLOOD ORDERABLES Final R esult [facility] [address] [place] [address] * (ABNORMAL) CBC (06/14/2025 2:36 PM EDT) WBC Count 15.83(H) 3.70 - 10.30 10*3/uL LAB HEMATOLOGY METHOD 06/14/2025 4:38 PM EDT [facility] RBC Count 4.98 4.60 - 6.10 10*6/uL LAB HEMATOLOGY METHOD 06/14/2025 4:38 PM EDT [facility] HGB 13.9 13.7 - 17.5 g/dL LAB HEMATOLOGY METHOD 06/14/2025 4:38 PM EDT [facility] HCT 42.6 40.0 - 51.0 % LAB HEMATOLOGY METHOD 06/14/2025 4:38 PM EDT [facility] Platelet Count 160 155 - 369 10*3/uL LAB HEMATOLOGY METHOD 06/14/2025 4:38 PM EDT [facility] MCV 86 79 - 98 fL LAB HEMATOLOGY METHOD 06/14/2025 4:38 PM EDT [facility] MCH 27.9 26.0 - 32.0 pg LAB HEMATOLOGY METHOD 06/14/2025 4:38 PM EDT [facility] MCHC 32.6 30.7 - 35.5 g/dL LAB HEMATOLOGY METHOD 06/14/2025 4:38 PM EDT [facility] RDW 15.2(H) 11.5 - 14.5 % LAB HEMATOLOGY METHOD 06/14/2025 4:38 PM EDT [facility] MPV 10.3 8.8 - 12.5 fL LAB HEMATOLOGY METHOD 06/14/2025 4:38 PM EDT [facility] nRBC 0.0 <=0.0 per 100 WBCs LAB HEMATOLOGY METHOD 06/14/2025 4:38 PM EDT [facility] Blood Venous blood specimen / Unknown Venipuncture / Unknown 06/14/2025 2:36 PM EDT 06/14/2025 4:17 PM EDT us Phillip Clark MD LAB BLOOD ORDERABLES Final R esult [facility] [address] [place] [address] * (ABNORMAL) POCT arterial blood gas gem (06/14/2025 2:00 PM EDT) pH, Arterial 7.35 7.31 - 7.42 06/14/2025 2:02 PM EDT [facility] pCO2, Arterial 38 32 - 45 mm Hg 06/14/2025 2:02 PM EDT [facility] pO2, Arterial 376 >80 mm Hg 06/14/2025 2:02 PM EDT [facility] SO2, Arterial 100(H) 94 - 98 % 06/14/2025 2:02 PM EDT [facility] Base Excess, Arterial -4.2(L) -2 - 3 mmol/L 06/14/2025 2:02 PM EDT [facility] HCO3, Arterial 21.0(L) 22 - 26 mmol/L 06/14/2025 2:02 PM EDT [facility] Total Hemoglobin, Arterial, Whole Blood 14.5 13.7 - 17.5 g/dL 06/14/2025 2:02 PM [facility] Hematocrit, Arterial 44.0 40 - 51.0 % 06/14/2025 2:02 PM T [facility] Sodium, Arterial 136 136 - 145 mmol/L 06/14/2025 2:02 PM T [facility] Potassium, Arterial 3.4(L) 3.6 - 4.9 mmol/L 06/14/2025 2:02 PM [facility] Chloride, Whole Blood 105 97 - 107 mmol/L 06/14/2025 2:02 PM [facility] Glucose, Arterial 138(H) 74 - 99 mg/dL 06/14/2025 2:02 PM T [facility] Ionized Calcium, Arterial 4.9 4.6 - 5.1 mg/dL 06/14/2025 2:02 PM [facility] Lactate, Arterial 4.2(H) 0.5 - 1.6 mmol/L 06/14/2025 2:02 PM EDT [facility] Body Temperature 37.0 Celsius 06/14/2025 2:02 PM [facility] pH, Temp Corrected, Arterial 7.35 7.31 - 7.42 06/14/2025 2:02 PM [facility] pCO2, Temp Corrected, Arterial 38 32 - 45 mm Hg 06/14/2025 2:02 PM [facility] pO2, Temp Corrected, Arterial 376 >80 mm Hg 06/14/2025 2:02 PM T [facility] Talent Acquisition Specialist ID Ricki Zamarripa 06/14/2025 2:02 PM [facility] Blood Whole blood specimen / Unknown 06/14/2025 2:00 PM EDT 06/14/2025 2:02 PM EDT Phillip Clark MD LAB POINT OF CARE TE ST DOCKED DEVICE UNSOLICITED RESULTS Final Result [facility] [address] [place] [address] * (ABNORMAL) POCT arterial blood gas gem (06/14/2025 1:22 PM EDT) pH, Arterial 7.34 7.31 - 7.42 06/14/2025 1:23 PM EDT [facility] pCO2, Arterial 41 32 - 45 mm Hg 06/14/2025 1:23 PM EDT [facility] pO2, Arterial 518 >80 mm Hg 06/14/2025 1:23 PM EDT [facility] SO2, Arterial 100(H) 94 - 98 % 06/14/2025 1:23 PM EDT [facility] Base Excess, Arterial -3.5(L) -2 - 3 mmol/L 06/14/2025 1:23 PM EDT [facility] HCO3, Arterial 22.1 22 - 26 mmol/L 06/14/2025 1:23 PM EDT [facility] Total Hemoglobin, Arterial, Whole Blood 13.2(L) 13.7 - 17.5 g/dL 06/14/2025 1:23 PM EDT [facility] Hematocrit, Arterial 40.0 40 - 51.0 % 06/14/2025 1:23 PM EDT [facility] Sodium, Arterial 139 136 - 145 mmol/L 06/14/2025 1:23 PM EDT [facility] Potassium, Arterial 3.3(L) 3.6 - 4.9 mmol/L 06/14/2025 1:23 PM EDT [facility] Chloride, Whole Blood 104 97 - 107 mmol/L 06/14/2025 1:23 PM EDT [facility] Glucose, Arterial 137(H) 74 - 99 mg/dL 06/14/2025 1:23 PM EDT [facility] Ionized Calcium, Arterial 4.2(L) 4.6 - 5.1 mg/dL 06/14/2025 1:23 PM EDT [facility] Lactate, Arterial 3.0(H) 0.5 - 1.6 mmol/L 06/14/2025 1:23 PM [facility]T [facility] Body Temperature 37.0 Celsius 06/14/2025 1:23 PM EDT [facility] pH, Temp Corrected, Arterial 7.34 7.31 - 7.42 06/14/2025 1:23 PM EDT [facility] pCO2, Temp Corrected, Arterial 41 32 - 45 mm Hg 06/14/2025 1:23 PM EDT [facility] pO2, Temp Corrected, Arterial 518 >80 mm Hg 06/14/2025 1:23 PM EDT [facility] Talent Acquisition Specialist ID Ricki Zamarripa 06/14/2025 1:23 PM EDT [facility] Blood Whole blood specimen / Unknown 06/14/2025 1:22 PM EDT 06/14/2025 1:23 PM EDT Phillip Clark MD LAB POINT OF CARE TE ST DOCKED DEVICE UNSOLICITED RESULTS Final Result [facility] [address] [place] [address] * (ABNORMAL) POCT arterial blood gas gem (06/14/2025 12:52 PM EDT) pH, Arterial 7.40 7.31 - 7.42 06/14/2025 12:54 PM EDT [facility] pCO2, Arterial 35 32 - 45 mm Hg 06/14/2025 12:54 PM EDT [facility] pO2, Arterial 399 >80 mm Hg 06/14/2025 12:54 PM EDT [facility] SO2, Arterial 100(H) 94 - 98 % 06/14/2025 12:54 PM EDT [facility] Base Excess, Arterial -2.6(L) -2 - 3 mmol/L 06/14/2025 12:54 PM EDT [facility] HCO3, Arterial 21.7(L) 22 - 26 mmol/L 06/14/2025 12:54 PM EDT [facility] Total Hemoglobin, Arterial, Whole Blood 11.7(L) 13.7 - 17.5 g/dL 06/14/2025 12:54 PM EDT [facility] Hematocrit, Arterial 35.0(L) 40 - 51.0 % 06/14/2025 12:54 PM EDT [facility] Sodium, Arterial 134(L) 136 - 145 mmol/L 06/14/2025 12:54 PM EDT [facility] Potassium, Arterial 4.2 3.6 - 4.9 mmol/L 06/14/2025 12:54 PM EDT [facility] Chloride, Whole Blood 107 97 - 107 mmol/L 06/14/2025 12:54 PM EDT [facility] Glucose, Arterial 148(H) 74 - 99 mg/dL 06/14/2025 12:54 PM EDT [facility] Ionized Calcium, Arterial 4.1(L) 4.6 - 5.1 mg/dL 06/14/2025 12:54 PM EDT [facility] Lactate, Arterial 2.2(H) 0.5 - 1.6 mmol/L 06/14/2025 12:54 PM EDT [facility] Body Temperature 37.0 Celsius 06/14/2025 12:54 PM EDT [facility] pH, Temp Corrected, Arterial 7.40 7.31 - 7.42 06/14/2025 12:54 PM EDT [facility] pCO2, Temp Corrected, Arterial 35 32 - 45 mm Hg 06/14/2025 12:54 PM EDT [facility] pO2, Temp Corrected, Arterial 399 >80 mm Hg 06/14/2025 12:54 PM EDT [facility] Talent Acquisition Specialist ID Jean Claude Staley 06/14/2025 12:54 PM EDT [facility] Blood Whole blood specimen / Unknown 06/14/2025 12:52 PM EDT 06/14/2025 12:54 PM EDT us Phillip Clark MD LAB POINT OF CARE TE ST DOCKED DEVICE UNSOLICITED RESULTS Final Result [facility] [address] [place] [address] * POCT ACT (06/14/2025 12:43 PM EDT) ACT+ (HIGH RANGE) 98 68 - 600 Seconds 06/14/2025 12:49 PM EDT [facility] Talent Acquisition Specialist ID Vick Dupont 06/14/2025 12:49 PM EDT [facility] ACT Device ID [id number] 06/14/2025 12:49 PM EDT [facility] Comment 06/14/2025 12:49 PM EDT [facility] Comment: ACT performed by staff [...] ST DOCKED DEVICE UNSOLICITED RESULTS Final Result [facility] [address] [facility] [address] [place] [address] * (ABNORMAL) POCT arterial blood gas gem (06/14/2025 12:16 PM EDT) pH, Arterial 7.42 7.31 - 7.42 06/14/2025 12:19 PM EDT [facility] pCO2, Arterial 36 32 - 45 mm Hg 06/14/2025 12:19 PM EDT [facility] pO2, Arterial 358 >80 mm Hg 06/14/2025 12:19 PM EDT [facility] SO2, Arterial 99(H) 94 - 98 % 06/14/2025 12:19 PM EDT [facility] Base Excess, Arterial -0.8 -2 - 3 mmol/L 06/14/2025 12:19 PM EDT [facility] HCO3, Arterial 23.4 22 - 26 mmol/L 06/14/2025 12:19 PM EDT [facility] Total Hemoglobin, Arterial, Whole Blood 11.3(L) 13.7 - 17.5 g/dL 06/14/2025 12:19 PM EDT [facility] Hematocrit, Arterial 34.0(L) 40 - 51.0 % 06/14/2025 12:19 PM EDT [facility] Sodium, Arterial 134(L) 136 - 145 mmol/L 06/14/2025 12:19 PM EDT [facility] Potassium, Arterial 5.7(H) 3.6 - 4.9 mmol/L 06/14/2025 12:19 PM EDT [facility] Chloride, Whole Blood 105 97 - 107 mmol/L 06/14/2025 12:19 PM EDT [facility] Glucose, Arterial 119(H) 74 - 99 mg/dL 06/14/2025 12:19 PM EDT [facility] Ionized Calcium, Arterial 4.0(L) 4.6 - 5.1 mg/dL 06/14/2025 12:19 PM EDT [facility] Lactate, Arterial 1.6 0.5 - 1.6 mmol/L 06/14/2025 12:19 PM EDT [facility] Body Temperature 37.0 Celsius 06/14/2025 12:19 PM EDT [facility] pH, Temp Corrected, Arterial 7.42 7.31 - 7.42 06/14/2025 12:19 PM EDT [facility] pCO2, Temp Corrected, Arterial 36 32 - 45 mm Hg 06/14/2025 12:19 PM EDT [facility] pO2, Temp Corrected, Arterial 358 >80 mm Hg 06/14/2025 12:19 PM EDT [facility] Talent Acquisition Specialist ID Vick Dupont 06/14/2025 12:19 PM EDT [facility] Blood Whole blood specimen / Unknown 06/14/2025 12:16 PM EDT 06/14/2025 12:19 PM EDT us Phillip Clark MD LAB POINT OF CARE TE ST DOCKED DEVICE UNSOLICITED RESULTS Final Result [facility] [address] [place] [address] * (ABNORMAL) POCT arterial blood gas gem (06/14/2025 12:06 PM EDT) pH, Arterial 7.39 7.31 - 7.42 06/14/2025 12:09 PM EDT [facility] pCO2, Arterial 40 32 - 45 mm Hg 06/14/2025 12:09 PM EDT [facility] pO2, Arterial 378 >80 mm Hg 06/14/2025 12:09 PM EDT [facility] SO2, Arterial 100(H) 94 - 98 % 06/14/2025 12:09 PM T [facility] Base Excess, Arterial -0.7 -2 - 3 mmol/L 06/14/2025 12:09 PM [facility] HCO3, Arterial 24.2 22 - 26 mmol/L 06/14/2025 12:09 PM EDT [facility] Total Hemoglobin, Arterial, Whole Blood 11.5(L) 13.7 - 17.5 g/dL 06/14/2025 12:09 PM [facility] Hematocrit, Arterial 35.0(L) 40 - 51.0 % 06/14/2025 12[facility] Sodium, Arterial 134(L) 136 - 145 mmol/L 06/14/2025 12: PM [facility] Potassium, Arterial 5.0(H) 3.6 - 4.9 mmol/L 06/14/2025 12:09 PM [facility] Chloride, Whole Blood 105 97 - 107 mmol/L 06/14/2025 12:09 PM [facility] Glucose, Arterial 123(H) 74 - 99 mg/dL 06/14/2025 12:09 PM [facility] Ionized Calcium, Arterial 4.2(L) 4.6 - 5.1 mg/dL 06/14/2025 12:09 PM [facility] Lactate, Arterial 1.2 0.5 - 1.6 mmol/L 06/14/2025 12:09 PM [facility] Body Temperature 37.0 Celsius 06/14/2025 12:09 PM [facility] pH, Temp Corrected, Arterial 7.39 7.31 - 7.42 06/14/2025 12:09 PM EDT [facility] pCO2, Temp Corrected, Arterial 40 32 - 45 mm Hg 06/14/2025 12:09 PM [facility] pO2, Temp Corrected, Arterial 378 >80 mm Hg 06/14/2025 12:09 PM EDT [facility] Talent Acquisition Specialist ID Cresencio, Gene 06/14[facility]2025 12:[facility] Blood Whole blood specimen / Unknown 06/14/2025 12:06 PM EDT 06/14/2025 12:09 PM EDT us Phillip Clark MD LAB POINT OF CARE TE ST DOCKED DEVICE UNSOLICITED RESULTS Final Result Performing Organization Address City/[facility] Co de Phone Number [facility]ALTHCARE [facility] [address] [place] [address] * (ABNORMAL) QPLUS (06/14/2025 11:55 AM EDT) Clot Time 06/14/2025 12:12 PM EDT [facility] Clot Time Ratio 12:12 PM EDT [facility] POCT Clot Stiffness 14.6 13.0 - 33.2 hectoPascals 06/14/2025 12:12 PM EDT [facility] Platelet Contribution to Clot Stiffnes 13.1 11.9 - 29.8 hectoPascals 06/14/2025 12:12 PM EDT [facility] Fibrinogen Contribution to Clot Stiffness 1.5 1.0 - 3.7 hectoPascals 06/14/2025 12:12 PM EDT [facility] Heparinase Clot Time 175(H) 103 - 153 Seconds 06/14/2025 12:12 PM EDT [facility] Talent Acquisition Specialist ID Ricki Zamarripa 06/14/2025 12:12 PM EDT [facility] Device ID [id number] 06/14/2025 12:12 PM EDT [facility] Whole Blood 06/14/2025 11:5 5 AM EDT 06/14/2025 12:12 PM EDT Narrative [facility] - 06/14/2025 12:[address]: No Clot Detected us Phillip Clark MD LAB POINT OF CARE TE ST DOCKED DEVICE UNSOLICITED RESULTS Final Result Performing Organization Address City/[facility]/ZIP Co de Phone Number [facility] [address] [place] [address] * POCT ACT (06/14/2025 11:54 AM EDT) ACT+ (HIGH RANGE) 510 68 - 600 Seconds 06/14/2025 12:07 PM EDT [facility] Talent Acquisition Specialist ID Vick Dupont 06/14/2025 12:07 PM EDT [facility] [facility] ACT Device ID [id number] 06/14/2025 12:07 PM EDT [facility] Comment 06/14/2025 12:07 PM EDT [facility] Comment: ACT performed by staff [...] ST DOCKED DEVICE UNSOLICITED RESULTS Final Result [facility] [address] LAB 800 [place] [address] * (ABNORMAL) POCT arterial blood gas gem (06/14/2025 11:33 AM EDT) pH, Arterial 7.37 7.31 - 7.42 06/14/2025 11:35 AM EDT [facility] pCO2, Arterial 43 32 - 45 mm Hg 06/14/2025 11:35 AM EDT [facility] pO2, Arterial 380 >80 mm Hg 06/14/2025 11:35 AM EDT [facility] SO2, Arterial 99(H) 94 - 98 % 06/14/2025 11:35 AM EDT [facility] Base Excess, Arterial -0.5 -2 - 3 mmol/L 06/14/2025 11:35 AM EDT [facility] HCO3, Arterial 24.9 22 - 26 mmol/L 06/14/2025 11:35 AM EDT [facility] Total Hemoglobin, Arterial, Whole Blood 11.5(L) 13.7 - 17.5 g/dL 06/14/2025 11:35 AM EDT [facility] Hematocrit, Arterial 35.0(L) 40 - 51.0 % 06/14/2025 11:35 AM EDT [facility] Sodium, Arterial 134(L) 136 - 145 mmol/L 06/14/2025 11:35 AM EDT [facility] Potassium, Arterial 5.6(H) 3.6 - 4.9 mmol/L 06/14/2025 11:35 AM EDT [facility] Chloride, Whole Blood 103 97 - 107 mmol/L 06/14/2025 11:35 AM EDT [facility] Glucose, Arterial 123(H) 74 - 99 mg/dL 06/14/2025 11:35 AM EDT [facility] Ionized Calcium, Arterial 4.2(L) 4.6 - 5.1 mg/dL 06/14/2025 11:35 AM EDT [facility] Lactate, Arterial 1.0 0.5 - 1.6 mmol/L 06/14/2025 11:35 AM EDT [facility] Body Temperature 37.0 Celsius 06/14/2025 11:35 AM EDT [facility] pH, Temp Corrected, Arterial 7.37 7.31 - 7.42 06/14/2025 11:35 AM EDT [facility] pCO2, Temp Corrected, Arterial 43 32 - 45 mm Hg 06/14/2025 11:35 AM EDT [facility] pO2, Temp Corrected, Arterial 380 >80 mm Hg 06/14/2025 11:35 AM EDT [facility] Talent Acquisition Specialist ID Vick Dupont 06/14/2025 11:35 AM EDT [facility] Blood Whole blood specimen / Unknown 06/14/2025 11:33 AM EDT 06/14/2025 11:35 AM EDT Phillip Clark MD LAB POINT OF CARE TE ST DOCKED DEVICE UNSOLICITED RESULTS Final Result [facility] 800 [place] [address] * POCT ACT (06/14/2025 11:24 AM EDT) ACT+ (HIGH RANGE) 520 68 - 600 Seconds 06/14/2025 11:37 AM EDT [facility] Talent Acquisition Specialist ID Vick Dupont 06/14/2025 11:37 AM EDT [facility] ACT Device ID [id number] 06/14/2025 11:37 AM EDT [facility] Comment 06/14/2025 11:37 AM EDT [facility] Comment: ACT performed by staff [...] ST DOCKED DEVICE UNSOLICITED RESULTS Final Result [facility] [address] LAB 800 [place] [address] * (ABNORMAL) POCT arterial blood gas gem (06/14/2025 11:03 AM EDT) pH, Arterial 7.40 7.31 - 7.42 06/14/2025 11:04 AM EDT [facility] pCO2, Arterial 41 32 - 45 mm Hg 06/14/2025 11:04 AM EDT [facility] pO2, Arterial 406 >80 mm Hg 06/14/2025 11:04 AM EDT [facility] SO2, Arterial 100(H) 94 - 98 % 06/14/2025 11:04 AM EDT [facility] Base Excess, Arterial 0.5 -2 - 3 mmol/L 06/14/2025 11:04 AM EDT [facility] HCO3, Arterial 25.4 22 - 26 mmol/L 06/14/2025 11:04 AM EDT [facility] Total Hemoglobin, Arterial, Whole Blood 11.9(L) 13.7 - 17.5 g/dL 06/14/2025 11:04 AM EDT [facility] Hematocrit, Arterial 36.0(L) 40 - 51.0 % 06/14/2025 11:04 AM EDT [facility] Sodium, Arterial 133(L) 136 - 145 mmol/L 06/14/2025 11:04 AM EDT [facility] Potassium, Arterial 5.3(H) 3.6 - 4.9 mmol/L 06/14/2025 11:04 AM EDT [facility] Chloride, Whole Blood 103 97 - 107 mmol/L 06/14/2025 11:04 AM EDT [facility] Glucose, Arterial 121(H) 74 - 99 mg/dL 06/14/2025 11:04 AM EDT [facility] Ionized Calcium, Arterial 4.2(L) 4.6 - 5.1 mg/dL 06/14/2025 11:04 AM EDT [facility] Lactate, Arterial 1.0 0.5 - 1.6 mmol/L 06/14/2025 11:04 AM EDT [facility] Body Temperature 37.0 Celsius 06/14/2025 11:04 AM EDT [facility] pH, Temp Corrected, Arterial 7.40 7.31 - 7.42 06/14/2025 11:04 AM EDT [facility] pCO2, Temp Corrected, Arterial 41 32 - 45 mm Hg 06/14/2025 11:04 AM EDT [facility] pO2, Temp Corrected, Arterial 406 >80 mm Hg 06/14/2025 11:04 AM EDT [facility] Talent Acquisition Specialist ID Vick Dupont 06/14/2025 11:04 AM EDT [facility] Blood Whole blood specimen / Unknown 06/14/2025 11:03 AM EDT 06/14/2025 11:04 AM EDT us Phillip Clark MD LAB POINT OF CARE TE ST DOCKED DEVICE UNSOLICITED RESULTS Final Result Performing Organization Address City/State/[facility] Co de Phone Number [facility] [address] [place] [address] * POCT ACT (06/14/2025 10:57 AM EDT) [facility] ACT+ (HIGH RANGE) 569 68 - 600 Seconds 06/14/2025 11:09 AM EDT [facility] Talent Acquisition Specialist ID Vick Dupont 06/14/2025 11:09 AM EDT [facility] ACT Device ID [id number] 06/14/2025 11:09 AM EDT [facility] Comment 06/14/2025 11:09 AM EDT [facility] Comment: ACT performed by staff [...] ST DOCKED DEVICE UNSOLICITED RESULTS Final Result [facility] [address] LAB 800 [place] [address] * (ABNORMAL) POCT arterial blood gas gem (06/14/2025 10:33 AM EDT) pH, Arterial 7.39 7.31 - 7.42 06/14/2025 10:34 AM EDT [facility] pCO2, Arterial 41 32 - 45 mm Hg 06/14/2025 10:34 AM EDT [facility] pO2, Arterial 349 >80 mm Hg 06/14/2025 10:34 AM EDT [facility] SO2, Arterial 99(H) 94 - 98 % 06/14/2025 10:34 AM EDT [facility] Base Excess, Arterial -0.2 -2 - 3 mmol/L 06/14/2025 10:34 AM EDT [facility] HCO3, Arterial 24.8 22 - 26 mmol/L 06/14/2025 10:34 AM EDT [facility] Total Hemoglobin, Arterial, Whole Blood 10.9(L) 13.7 - 17.5 g/dL 06/14/2025 10:34 AM EDT [facility] Hematocrit, Arterial 33.0(L) 40 - 51.0 % 06/14/2025 10:34 AM EDT [facility] Sodium, Arterial 135(L) 136 - 145 mmol/L 06/14/2025 10:34 AM EDT [facility] Potassium, Arterial 4.8 3.6 - 4.9 mmol/L 06/14/2025 10:34 AM EDT [facility] Chloride, Whole Blood 103 97 - 107 mmol/L 06/14/2025 10:34 AM EDT [facility] Glucose, Arterial 116(H) 74 - 99 mg/dL 06/14/2025 10:34 AM EDT [facility] Ionized Calcium, Arterial 4.1(L) 4.6 - 5.1 mg/dL 06/14/2025 10:34 AM EDT [facility] Lactate, Arterial 1.3 0.5 - 1.6 mmol/L 06/14/2025 10:34 AM EDT [facility] Body Temperature 37.0 Celsius 06/14/2025 10:34 AM EDT [facility] pH, Temp Corrected, Arterial 7.39 7.31 - 7.42 06/14/2025 10:34 AM EDT [facility] pCO2, Temp Corrected, Arterial 41 32 - 45 mm Hg 06/14/2025 10:34 AM EDT [facility] pO2, Temp Corrected, Arterial 349 >80 mm Hg 06/14/2025 10:34 AM EDT [facility] Talent Acquisition Specialist ID Vick Dupont 06/14/2025 10:34 AM EDT [facility] Blood Whole blood specimen / Unknown 06/14/2025 10:33 AM EDT 06/14/2025 10:34 AM EDT Phillip Clark MD LAB POINT OF CARE TE ST DOCKED DEVICE UNSOLICITED RESULTS Final Result Performing Organization Address City/State/[facility] Co de Phone Number [facility] [address] [place] [address] * (ABNORMAL) POCT ACT (06/14/2025 10:26 AM EDT) ACT+ (HIGH RANGE) >600(H) 68 - 600 Seconds 06/14/2025 10:40 AM EDT [facility] Talent Acquisition Specialist ID Vick Dupont 06/14/2025 10:40 AM EDT [facility] ACT Device ID [id number] 06/14/2025 10:40 AM EDT [facility] Comment 06/14/2025 10:40 AM EDT [facility] Comment: ACT performed by staff [...] UNSOLICITED RESULTS Final Result Performing Organization Address City/[facility]/ZIP Co de Phone Number [facility] [address] LAB [address] [place] [address] * Surgical Pathology Exam (06/14/2025 10:18 AM EDT) Case Report Surgical Pathology Case: [id number] Authorizing Provider: Phillip Clark MD Collected: 06/14/2025 1018 Ordering Location: [facility] A OPERATING ROOM Received: 06/14/2025 1413 Pathologist: Beth Lake MD Specimen: Heart, aortic valve leaflets 06/15/2025 11:44 AM EDT [facility] Final Diagnosis A. AORTIC VALVE LEAFLETS, REPLACEMENT: - FIBROSIS AND MYXOID DEGENERATION. 06/15/2025 11:44 AM EDT [facility] at 1144 EDT Clinical Information Severe aortic regurgitation [I35.1] 06/15/2025 11:44 AM EDT [facility] Gross Description A. AORTIC VALVE LEAFLETS Received fresh and placed in formalin labeled aortic valve leaflets are 2 white-montez soft cardiac leaflets ranging in size from 2.5-4.0 cm in greatest dimension. Administrative Supervisor sections are submitted in cassette A1. Cold Time: 3h 55m April Santos 06/15/2025 11:44 AM EDT [facility] Tissue Heart structure / Unknown 06/14/2025 10:18 AM EDT 06/14/2025 2:13 PM EDT Comment:Pre-op diagnosis: Severe aortic regurgitation [I35.1] us Phillip Clark MD LAB PATHOLOGY ORDERABLES Fin al Result Performing Organization Address [facility] Co de Phone Number [facility] [address] [place] [address] * (ABNORMAL) POCT arterial blood gas gem (06/14/2025 10:08 AM EDT) pH, Arterial 7.40 7.31 - 7.42 06/14/2025 10:17 AM [facility] pCO2, Arterial 40 32 - 45 mm Hg 06/14/2025 10:17 AM [facility] pO2, Arterial 410 >80 mm Hg 06/14/2025 10:17 AM [facility] SO2, Arterial 100(H) 94 - 98 % 06/14/2025 10:17 AM [facility] Base Excess, Arterial 0.0 -2 - 3 mmol/L 06/14/2025 10:17 AM [facility] HCO3, Arterial 24.8 22 - 26 mmol/L 06/14/2025 10:17 AM [facility] Total Hemoglobin, Arterial, Whole Blood 10.1(L) 13.7 - 17.5 g/dL 06/14/2025 10:17 AM [facility] Hematocrit, Arterial 30.0(L) 40 - 51.0 % 06/14/2025 10:17 AM [facility] Sodium, Arterial 133(L) 136 - 145 mmol/L 06/14/2025 10:17 AM [facility] Potassium, Arterial 4.7 3.6 - 4.9 mmol/L 06/14/2025 10:17 AM [facility] Chloride, Whole Blood 104 97 - 107 mmol/L 06/14/2025 10:17 AM [facility] Glucose, Arterial 122(H) 74 - 99 mg/dL 06/14/2025 10:17 AM [facility] Ionized Calcium, Arterial 3.9(L) 4.6 - 5.1 mg/dL 06/14/2025 10:17 AM [facility] Lactate, Arterial 1.5 0.5 - 1.6 mmol/L 06/14/2025 10:17 AM [facility] Body Temperature 37.0 Celsius 06/14/2025 10:17 AM [facility] pH, Temp Corrected, Arterial 7.40 7.31 - 7.42 06/14/2025 10:17 AM [facility] pCO2, Temp Corrected, Arterial 40 32 - 45 mm Hg 06/14/2025 10:17 AM EDT [facility] pO2, Temp Corrected, Arterial 410 >80 mm Hg 06/14/2025 10:17 AM EDT [facility] Talent Acquisition Specialist ID Vick Dupont 06/14/2025 10:17 AM EDT [facility] Blood Whole blood specimen / Unknown 06/14/2025 10:08 AM EDT 06/14/2025 10:17 AM EDT Phillip Clark MD LAB POINT OF CARE TE ST DOCKED DEVICE UNSOLICITED RESULTS Final Result Performing Organization Address City/[facility]/ZIP Co de Phone Number [facility] [address] [place] [address] * (ABNORMAL) POCT ACT (06/14/2025 10:04 AM EDT) ACT+ (HIGH RANGE) >600(H) 68 - 600 Seconds 06/14/2025 10:19 AM EDT [facility] Talent Acquisition Specialist ID Vick Dupont 06/14/2025 10:19 AM EDT [facility] ACT Device ID [id number] 06/14/2025 10:19 AM EDT [facility] Comment 06/14/2025 10:19 AM EDT [facility] Comment: ACT performed by staff [...] UNSOLICITED RESULTS Final Result Performing Organization Address City/[facility]/ZIP Co de Phone Number [facility] [address] LAB [address] [place] [address] * POCT ACT (06/14/2025 8:13 AM EDT) ACT+ (HIGH RANGE) 90 68 - 600 Seconds 06/14/2025 8:20 AM EDT [facility] Talent Acquisition Specialist ID Kevin Hernandez 06/14/2025 8:20 AM EDT [facility] ACT Device ID [id number] 06/14/2025 8:20 AM EDT [facility] Comment 06/14/2025 8:20 AM EDT [facility] Comment: ACT performed by staff [...] 8:13 AM EDT 06/14/2025 8:20 AM EDT us Phillip Clark MD LAB POINT OF CARE TE ST DOCKED DEVICE UNSOLICITED RESULTS Final Result Performing Organization Address City/State/[facility] Co de Phone Number [facility] [address] LAB [address] [place] [address] * (ABNORMAL) POCT arterial blood gas gem (06/14/2025 8:13 AM EDT) pH, Arterial 7.38 7.31 - 7.42 06/14/2025 8:15 AM EDT [facility] pCO2, Arterial 40 32 - 45 mm Hg 06/14/2025 8:15 AM EDT [facility] pO2, Arterial 91 >80 mm Hg 06/14/2025 8:15 AM EDT [facility] SO2, Arterial 99(H) 94 - 98 % 06/14/2025 8:15 AM EDT [facility] Base Excess, Arterial -1.3 -2 - 3 mmol/L 06/14/2025 8:15 AM EDT [facility] HCO3, Arterial 23.7 22 - 26 mmol/L 06/14/2025 8:15 AM EDT [facility] Total Hemoglobin, Arterial, Whole Blood 14.5 13.7 - 17.5 g/dL 06/14/2025 8:15 AM EDT [facility] Hematocrit, Arterial 44.0 40 - 51.0 % 06/14/2025 8:15 AM EDT [facility] Sodium, Arterial 135(L) 136 - 145 mmol/L 06/14/2025 8:15 AM EDT [facility] Potassium, Arterial 4.1 3.6 - 4.9 mmol/L 06/14/2025 8:15 AM EDT [facility] Chloride, Whole Blood 103 97 - 107 mmol/L 06/14/2025 8:15 AM EDT [facility] Glucose, Arterial 95 74 - 99 mg/dL 06/14/2025 8:15 AM EDT [facility] Ionized Calcium, Arterial 4.7 4.6 - 5.1 mg/dL 06/14/2025 8:15 AM EDT [facility] Lactate, Arterial 0.8 0.5 - 1.6 mmol/L 06/14/2025 8:15 AM EDT [facility] Body Temperature 37.0 Celsius 06/14/2025 8:15 AM EDT [facility] pH, Temp Corrected, Arterial 7.38 7.31 - 7.42 06/14/2025 8:15 AM EDT [facility] pCO2, Temp Corrected, Arterial 40 32 - 45 mm Hg 06/14/2025 8:15 AM EDT [facility] pO2, Temp Corrected, Arterial 91 >80 mm Hg 06/14/2025 8:15 AM EDT [facility] Talent Acquisition Specialist ID Lb Coreas 06/14/2025 8:15 AM EDT [facility] Blood Whole blood specimen / Unknown 06/14/2025 8:13 AM EDT 06/14/2025 8:15 AM EDT us Phillip Clark MD LAB POINT OF CARE TE ST DOCKED DEVICE UNSOLICITED RESULTS Final Result [facility] [address] [place] [address] * Type and Screen (06/14/2025 6:27 AM [...] ORDERABL ES Final Result Performing Organization Address City/[facility]/ZIP Co de Phone Number BLOOD BANK [address] [place] [address], * POCT glucose meter (06/14/2025 6:23 AM EDT) [facility] POCT Glucose 93 74 - 99 mg/dL [...] for testing. Comment 06/14/2025 6:24 AM EDT [facility] Talent Acquisition Specialist ID Kassi Sinha 06/14/2025 6:24 AM EDT [facility] LAB Device ID [id number] 06/14/2025 6:24 AM EDT [facility] Specimen Type POC Venous 06/14/2025 6:24 AM EDT [facility] Blood Venous blood specimen / Unknown 06/14/2025 6:23 AM EDT 06/14/2025 6:24 AM EDT Phillip Clark MD LAB POINT OF CARE TE ST DOCKED DEVICE UNSOLICITED RESULTS Final Result [facility] [address] [place] [address] documented in this encounter Visit Diagnoses Diagnosis Aortic valve regurgitation- Primary Aortic valve disorders Severe aortic regurgitation Other secondary hypertension S/P AVR BMI 30.0-30.9,adult High cholesterol Pure hypercholesterolemia Hypertension Unspecified essential hypertension CAD (coronary artery disease) Coronary atherosclerosis of unspecified type of vessel, asa[place] or graft History of coronary angioplasty with [...] mL/hr), 0.032 mg/mL, Intravenous, Titrated, Starting on 06/14/25 at 1545, Until Fri06/15/25 at 1017, STAT [...] 40 mg, Intravenous, Once, 1 dose, On 06/15/25 at 2315, [...] PRN, Starting on Fri06/14/25 at 1435, Until 06/20/25 at 1627, Routine, [...] on Fri06/18/25 at 0545, Last dose on 06/18/25 at [...] 40 mEq, Oral, Once, 1 dose, On Fri06/18/25 at 1045, Routine Given 06/18/2025 9:56 AM [...] on 06/18/25 at 1700, Until Discontinued, Routine Given 06/19/2025 4:55 PM EDT 4 mg Given 06/18/2025 5:58 PM EDT 4 mg warfarin (Coumadin) tablet 5 mg 5 mg, Oral, Daily, First dose (after last modification) on 06/17/25 at 1700, Until Discontinued, Routine Given 06/17/2025 [...] Brittaney Dumas, HESHAM)1235 (Given - Provider: Brittaney Dumas RN)1609 (Given - Provider: Brittaney Dumas RN)2002 (Given - Provider: Lori Molina RN)2359 (Not Given - Provider: Lori Molina RN - Reason: Patient/family refused) 0300 (Given - Provider: Lori Molina RN)0847 (Given - Provider: Vicente Hussein RN)1202 (Given - Provider: Vicente Hussein RN)1513 (Given - Provider: Vicente Hussein, HESHAM)2017 (Given - Provider: Any Garcia RN) 0026 (Given - Provider: Any Garcia RN)0405 (Given - Provider: Any Garcia RN)0855 (Given - Provider: Agustina Mello RN)1200 (Canceled [...] Routine 0822 (Given - Provider: Brittaney Dumas, HESHAM)2003 (Not Given - Provider: Lori Molina RN - Reason: Patient/family refused) 09 (Given - Provider: Vicente Hussein, HESHAM)2017 (Given - Provider: Any Garcia, HESHAM) 0855 (Given - Provider: Agustina Mello, HESHAM) losartan (Cozaar) tablet 25 mg 25 mg, Oral, 2 times daily, First dose on Fri06/16/25 at 1015, Until Discontinued, Routine 0821 (Given - Provider: Brittaney Dumas, HESHAM)2003 (Given - Provider: Lori Molina RN) 0846 (Given - Provider: Vicente Hussein RN)2016 (Given - Provider: Any Garcia RN) 0854 (Given - Provider: Agustina Mello, HESHAM) melatonin tablet 9 mg 9 mg, Oral, Nightly, First dose (after last modification) on Fri06/15/25 at 0200, Until Discontinued, Routine 2002 (Given - Provider: Lori Molina RN) 2016 (Given - Provider: Any Garcia RN) methocarbamol (Robaxin) tablet 500 mg 500 mg, [...] RN) 0854 (Given - Provider: Agustina Mello, HESHAM)1600 (Canceled Entry - Provider: Automatic Discharge Provider - Comment: Automatically canceled at discontinue of medication order) metoprolol tartrate (Lopressor) tablet 25 mg (CANCELED) 25 mg, Oral, 2 times daily, First dose (after last modification) on Fri06/16/25 at 0900, Until Discontinued, Routine 0626 (Given - Provider: Lori Molina RN - Comment: given early per Jason Karmali, DO due to vent bigeminey)0822 (Not Given - Provider: Brittaney Dumas RN - Reason: Hold for condition: must add comment - Comment: dose given by derrick boat lever operator rn @ [facility] Joseph instructed chief underwriter to hold 0900 dose)2003 (Given - Provider: Lori Molina, HESHAM) 0847 (Given - Provider: Vicente Hussein, HESHAM) metoprolol tartrate (Lopressor) tablet 25 mg (COMPLETED) 25 mg, Oral, Once, 1 dose, On 06/18/25 at 1300, Routine 1235 (Given - Provider: Brittaney Dumas, HESHAM) metoprolol tartrate (Lopressor) tablet 25 mg (COMPLETED) 25 mg, Oral, Once, 1 dose, On 06/19/25 at 0330, Routine 0243 (Given - Provider: Lori Molina, HESHAM) metoprolol tartrate (Lopressor) tablet 25 mg 25 [...] Brittaney Dumas, HESHAM)2003 (Given - Provider: Lori Molina, HESHAM) 0847 (Given - Provider: Vicente Hussein RN) pantoprazole (Protonix) EC tablet 40 mg 40 mg, Oral, Daily, First dose on Fri06/15/25 at 1930, Until Discontinued, Routine 0821 (Given - Provider: Brittaney Dumas, HESHAM) 0848 (Given - Provider: Vicente Hussein RN) 0854 [...] Dumas RN) 0846 (Given - Provider: Vicente Hussein, HESHAM) [...] Molina RN) 0837 (Given - Provider: Vicente Hussein, HESHAM)195 (Given - Provider: Any Garcia, HESHAM) 0855 (Given - Provider: Agustina Mello, RN) warfarin (Coumadin) tablet 4 mg 4 mg, Oral, Daily, First dose (after last modification) on 06/18/25 at 1700, Until Discontinued, Routine 1758 (Given - Provider: Brittaney Dumas, HESHAM) 1655 (Given - Provider: Vicente Hussein RN) PRN Medication Order 06/18/2025 06/19/2025 06/20/2025 ondansetron (Zofran) injection 4 mg 4 mg, Intravenous, Every 6 hours PRN, Starting on Fri06/14/25 at 1435, Until 06/20/25 at 1627, Routine, Recovery(Phase II-Outpatient)/On Unit(Inpatient), nausea, vomiting oxyCODONE (Roxicodone) immediate release tablet 10 mg(Linked Group 1) 10 mg, Oral, Every 6 hours PRN, Starting on Fri06/14/25 at 1505, Until 06/20/25 at 1627, Routine, severe pain 0140 (Given - Provider: Lori Molina RN)0829 (Given - Provider: Brittaney Dumas, HESHAM)2003 (Given - Provider: Lori Molina RN) 0431 (Given - Provider: Lori Molina RN)1001 (Given - Provider: Vicente Hussein RN)1703 (Given - Provider: Vicente Hussein RN) 0026 (Given - Provider: Any Garcia, HESHAM)0622 (Given - Provider: Any Garcia, HESHAM - Comment: epic unavailable in room--downtime)1150 (Given - Provider: Agustina Mello, HESHAM) oxyCODONE (Roxicodone) immediate release tablet 5 mg(Linked Group 1) 5 mg, Oral, Every 6 hours PRN, Starting on Fri06/14/25 at 1505, Until Fri06/20/25 at 1627, Routine, moderate pain 0140 (See Alternative - Provider: Lori Molina, RN)0829 (See Alternative - Provider: Brittaney Dumas, HESHAM)2004 (See Alternative - Provider: Lori Molina RN) 0431 (See Alternative - Provider: Lori Molina RN)1001 (See Alternative - Provider: Vicente Hussein, RN)1703 (See Alternative - Provider: Vicente Hussein, RN) 0026 (See Alternative - Provider: Any Garcia, [...] documented as of this encounter Care Teams [employer] 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
--- OUTSIDE RECORDS SUMMARY | 2025-06-14 07:45 | XMS_ITS | Encounter Summary ---
Author Organization [facility] Address [address] [place] [id number] Care Team Providers Care Greenstone Polisher Operator Name Role Phone Kamran Singh MD Primary Care Provider +1- [phone] Reason for Visit * Auth/Cert (Routine) Specialty Diagnoses / Procedures Referred By Nathalia t Referred To Contact Diagnoses Severe aortic regurgitation Severe aortic regurgitation [I35.1] Procedures AR -AORT GRF W/CARD BYP F/AORTIC DISSECTION AORTIC ROOT RECONSTRUCTION Phillip Clark MD [address] [facility] [address] [place] [address] Phone: tel: fax: [facility] [address] [place] [address] Phone: tel: Referral ID Status Reason Start Date Expiration Date Visits Re quested Visits Authorized [id number] 1 1 Encounter Details Date Type Department Care Team (Late st Contact Info) Description 06/14/2025 7:45 AM EDT Anesthesia Event [facility] [address] [place] [address] Jean Claude Staley MD [address] [place] [address] Ricki Zamarripa DO [address] [place] [address] Anesthesia Record Procedure Summary Procedure Name Responsible [...] any time in the past 12 m [facility], were you homeless or living in a senior care (including now)? No 06/15/2025 [facility] Utilities Answer Date Recorded In the past 12 months has th e [employer], gas, oil, or water company threatened to [...] supine Prep: ChloraPrep Patient monitoring: heart rate, transcribing operators supervisor and continuous pulse ox Anesthesia block type: [...] portions of the procedure(s) and immediately available [facility] services the entire duration. See [...] mcg/kg/min) RV: same as baseline Aortic valve: [place] valve replaced by mechanical valve. New valve [...] portions of the procedure(s) and immediately available [facility] services the entire duration. See [...] Forrest Date of : 1955 Subjective: Bradley Forrets is a 69 y.o. male with hx [...] 05/05/25 88.7 kg (195 lb 8.8 oz) [place] Body Weight: [place] body weight: 66.1 kg (145 lb 11.6 [...] fibrillation, CHF, dysrhythmias, hyperlipidemia, pacemaker or past LA. hypertension: Exercise tolerance is 1 flight of [...] Description 07/07/2025 2:40 PM EST Office Visit [facility] Cardiothoracic [address], [address] [place] [address] Phillip Clark MD [address] [place] [address] documented as of this encounter Procedures Procedure [...] supine Prep: ChloraPrep Patient monitoring: heart rate, transcribing operators supervisor and continuous pulse ox Anesthesia block type: [...] mcg/kg/min) RV: same as baseline Aortic valve: [place] valve replaced by mechanical valve. New valve [...] documented as of this encounter Care Teams Greenstone Polisher Operator Relationship Specialty Start Date End Date Kamran Singh MD [address] [place] [address] PCP - General 02/28/25 documented as of this encounter
--- OUTSIDE RECORDS SUMMARY | 2025-06-14 07:45 | XMS_ITS | Encounter Summary ---
Author Organization [facility] Address [address] [id number] Care Team Providers Care Data Processing Systems Consultant Name Role Phone Kamran Singh MD Primary Care Provider [phone] Reason for Visit * Auth/Cert (Routine) Specialty Diagnoses / Procedures Referred By Nathalia t Referred To Contact Diagnoses Severe aortic regurgitation Severe aortic regurgitation [I35.1] Procedures AL -AORT GRF W/CARD BYP F/AORTIC DISSECTION AORTIC ROOT RECONSTRUCTION Phillip Clark MD [address] [facility] [address] [address] Phone: tel: fax: [facility] [address] [place] [address] Phone: tel: Referral ID Status Reason Start Date Expiration Date Visits Re quested Visits Authorized [id number] 1 1 Encounter Details Date Type Department Care Team (Late st Contact Info) Description 06/14/2025 7:45 AM EDT - 06/14/2025 8:15 PM EDT Surgery [facility] [address] [place] [id number] Phillip Clark MD [address] [facility] [place] [address] [place] [address] Aortic valve replacement [65759 (CPT )] Surgery Details Date/Time Status Location [...] in a detention (including now)? No 06/15/2025 [facility] Utilities Answer Date Recorded In the past 12 months has th e [employer], gas, oil, or water [employer] threatened to shut off services in your [...] a referral and prefers to attend at [facility]. [place] will contact Mr. Forrest to discuss and [...] 2. Eligibility: Heart valve surgery 3. Exceptions/exclusions: [facility] Cardiac Rehab Exclusions: None 4. Referral: [facility] Cardiac Rehab Referral: Patient agreed with referral to the cardiac rehabilitation program at [facility] in [place], [place], phone number [phone]. 5. Information sent: Information Sent: Appropriate information will be sent to the receiving cardiac rehabilitation program.: * Progress Notes - Oumou Berger - 06/20/2025 10:15 AM EDT Case Management Discharge Note Bradley Forrest 69 y.o. male CSN: [id number] Admission: 06/14/2025 5:18 AM Primary Problem: Aortic valve regurgitation Primary Conduit Worker: Primary Caregiver: Self Assistance Available at Discharge: Current Outpatient/Agency/Support Group: DME Availability of Care Givers (#Hours): Other (comment) (As needed) Family/Conduit Worker(s) Willingness Assessed to care for patient at home: Yes Family/Conduit Worker(s) Readiness Assessed to care for patient at [...] Recieved By: patient Follow-up: Jolynn Pollard APRN [facility] Cardiology [address] [place] [address] [address]EN[address]A [address]avira [phone] Go on 08/22/2025 Your cardiology appointment is on August 22 at 11am Please arrive 15 minutes early and bring UPDATED medication list. [address] [facility] [id number] Go on 06/22/2025 Your first appointment for your Warfarin/Coumadin management is this FridayJune 22 at 11:30am. Please report to [facility] front admission desk and tell them you are checking in to the Pharmacy Anticoagulation Clinic. The meter reading clerk will call the pharmacist who will meet you in the lobby and escort you to the clinic. Please bring all medications you are taking and your insurance card. If you have any issues please call [phone] ext: [phone] and then choose option 2. Discharge Transportation: Transportation Anticipated: family or friend will provide Transportation Home at Discharge: Family/Friend will Provide Follow Up Transport: Transportation Needed to Follow up Appoinments: Family/Friend will Provide Additional Comments: SW spoke with primary team this date who indicate the pt is medically stable for DC this date and does not require further [facility]-based care. Pt to DC home with , to transport. Covering RNCM ordered rollator from [facility] to be delivered to bedside. No [...] name and Address: Kamran Singh MD [address] [facility] [address] Referring provider name and address: No referring [...] Your Medications These medications were sent to [facility] - [place], [place] - [address] [facility] [address] acetaminophen 325 MG tablet clopidogrel 75 MG [...] Center 07/07/2025 2:40 PM Phillip Clark MD [facility] Test Results Pending At Discharge [...] Plan Anticoagulation Plan Warfarin Pharmacist Managed?: No [facility] Warfarin Dosing Protocol Followed?: No Reason for Protocol Departure: CT Surgery Bridging Agent in Conjunction With Warfarin? : No INR Monitoring Frequency: Monitor INR daily Patient Education : Complete and documented Warfarin dosing and adjustment per CT surgery provider. Transitions of Care Outpatient provider managing warfarin after [facility] discharge: TBD - possibly clinic Recommended date for outpatient INR assessment: TBD - of note, enoxparin copay $0 for 7 day supply Will continue to follow patient's clinical progress daily. Frank BernalD, [facility] Clinical Pharmacist - Cardiothoracic Surgery Available via [employer] * Progress Notes - Phillip Clark MD [...] Therapy: essential oils utilized Taken 06/19/2025344 by Loir Molina RN Diversional Activities: television Goal: Nausea [...] Ongoing, Progressing Intervention: Promote Activity and Functional [place] Flowsheets (Taken 06/19/20251704 by Vicente Hussein RN) Activity Assistance Provided: assistance, stand-by Adaptive Equipment Use: use encouraged Self-Care Promotion: independence encouraged Problem: Self-Care Deficit Goal: Improved Ability to Complete Activities of Daily Living Outcome: Ongoing, Progressing Intervention: Promote Activity and Functional [place] Flowsheets (Taken 06/19/20251704 by Vicente Hussein RN) [...] Ongoing, Progressing Intervention: Promote Activity and Functional [place] Flowsheets (Taken 06/19/20251704) Activity Assistance Provided: assistance, [...] Ongoing, Progressing Intervention: Promote Activity and Functional [place] Flowsheets (Taken 06/19/2025 1705) Activity Assistance Provided: [...] Plan Anticoagulation Plan Warfarin Pharmacist Managed?: No [facility] Warfarin Dosing Protocol Followed?: No Reason for Protocol Departure: CT Surgery Bridging Agent in Conjunction With Warfarin? : No Goal PTT/anti-Xa: 2.5-3.5 INR Monitoring Frequency: Monitor INR daily Patient Education : Complete and documented Warfarin dosing and adjustment per CT surgery provider. Transitions of Care Outpatient provider managing warfarin after [facility] discharge: TBD - possibly clinic [...] rhythm - continue warfarin CT surgery pager [phone] [1] acetaminophen, 650 mg, Oral, q4h DEMETRIUS [...] Ongoing, Progressing Intervention: Promote Activity and Functional [place] Flowsheets (Taken 06/19/2025344) Activity Assistance Provided: assistance, stand-by Self-Care Promotion: independence encouraged Problem: Self-Care Deficit Goal: Improved Ability to Complete Activities of Daily Living Outcome: Ongoing, Progressing Intervention: Promote Activity and Functional [place] Flowsheets (Taken 06/19/2025344) Activity Assistance Provided: assistance, [...] from the original note were not included. [id number] Tratamiento para contracciones ventriculares prematuras (CVP) Las [...] Confusi??n. Last Reviewed Date: 2024 00:00:00 ?? [id number] [employer]. All rights reserved. This information is not intended as a substitute for professional medical care. Always follow your healthcare professional's instructions. * Gabriel Singh - Brittaney Dumas RN - 06/18/2025 6:29 PM EDT Images from the original note were not included. [id number] C??mo comprender las contracciones ventriculares prematuras (CVP) [...] se??al activa partes cercanas del coraz??n contraer. [place] permite que el coraz??n se comprima de [...] card??acos anteriores, el coraz??n expulsar?? muypoca mushtaq. [place] provoca aria sensaci??n de pausa entre latidos. El siguiente latido card??aco suele ser m??s bea, ya que la pausa lo permite que el coraz??n descanse y se llene de mushtaq. [place] lleva a aria sensaci??n de latido card??aco [...] port??til jameson unos d??as o incluso semanas. [place] puede ayudar a diagnosticar los CVP que [...] im??genes del coraz??n. ? An??lisis de mushtaq. [place] se hace para comprobar los electrolitos y concentraciones tiroideas. Last Reviewed Date: 2024 00:00:00 ?? [id number] [employer]. All rights reserved. This information is not intended as a substitute for professional medical care. Always follow your healthcare professional's instructions. * Gabriel OnFHALONZO - Brittaney Dumas RN - 06/18/2025 6:29 PM EDT Images from the original note were not included. [id number] Tratamiento para contracciones ventriculares prematuras (CVP) Las [...] Confusi??n. Last Reviewed Date: 2024 00:00:00 ?? [id number] [employer]. All rights reserved. This information is not intended as a substitute for professional medical care. Always follow your healthcare professional's instructions. * Gabriel Singh - Brittaney Dumas RN - 06/18/2025 6:29 PM EDT Images from the original note were not included. [id number] C??mo comprender las contracciones ventriculares prematuras (CVP) [...] se??al activa partes cercanas del coraz??n contraer. [place] permite que el coraz??n se comprima de [...] card??acos anteriores, el coraz??n expulsar?? muypoca mushtaq. [place] provoca aria sensaci??n de pausa entre latidos. El siguiente latido card??aco suele ser m??s bea, ya que la pausa lo permite que el coraz??n descanse y se llene de mushtaq. [place] lleva a aria sensaci??n de latido card??aco [...] port??til jameson unos d??as o incluso semanas. [place] puede ayudar a diagnosticar los CVP que [...] im??genes del coraz??n. ? An??lisis de mushtaq. [place] se hace para comprobar los electrolitos y concentraciones tiroideas. Last Reviewed Date: 2024 00:00:00 ?? [id number] [employer]. All rights reserved. This information is not intended as a substitute for professional medical care. Always follow your healthcare professional's instructions. * Gabriel Singh - Brittaney Dumas RN - 06/18/2025 6:28 PM EDT Images from the original note were not included. 31316 Treatment for Premature Ventricular Contractions (PVCs) Premature [...] confusion Last Reviewed Date: 2024 00:00:00 ?? [id number] [employer]. All rights reserved. This information is not intended as a substitute for professional medical care. Always follow your healthcare professional's instructions. * Gabriel GonsalezTRISTAN Dumas Brittaney Darin, RN - 06/18/2025 6:28 PM EDT Images from the original note were not included. 14520 Understanding Premature Ventricular Contractions (PVCs) Premature ventricular [...] ? Insertable (or implantable) cardiac cath lab manager. This small device is implanted under [...] levels. Last Reviewed Date: 2024 00:00:00 ?? [id number] [employer]. All rights reserved. This information is not [...] Plan Anticoagulation Plan Warfarin Pharmacist Managed?: No [facility] Warfarin Dosing Protocol Followed?: No Bridging Agent in Conjunction With Warfarin? : Yes Ordered Agents: Enoxaparin Bridging Agent Dose: 70mg BID INR Monitoring Frequency: Monitor INR daily Patient Education : Complete and documented Warfarin dosing and adjustment per CT surgery provider. Transitions of Care Outpatient provider managing warfarin after [facility] discharge: TBD - possibly clinic [...] Ongoing, Progressing Intervention: Promote Activity and Functional [place] Flowsheets (Taken 06/18/202558) Activity Assistance Provided: assistance, 1 person Self-Care Promotion: independence encouraged Problem: Self-Care Deficit Goal: Improved Ability to Complete Activities of Daily Living Outcome: Ongoing, Progressing Intervention: Promote Activity and Functional [place] Flowsheets (Taken 06/18/202558) Activity Assistance Provided: assistance, [...] from the original note were not included. [id number] Warfarin IMPORTANT WARNING: Warfarin may cause severe [...] doctor or pharmacist will give you the roving court reporter's patient information sheet (Medication Guide) when you begin treatment with warfarin and each time you refill your prescription. Read the information carefully and ask your doctor or pharmacist if you have any questions. You can also visit the Food and Drug Administration (FDA) website (https://www.fda.gov/downloads/Drugs/DrugSafety/jzj370799.pdf) or the roving court reporter's website to obtain the Medication Guide. Talk [...] amounts of vitamin K-containing food on a vvuz-ui-nnyr basis. Do not eat large amounts of [...] of all of the prescription and nonprescription (lnbp-mlx-fmmbnub) medicines, vitamins, minerals, and dietary supplements you [...] or pharmacist about specific clinical use. The [place] [employer] represents that the information provided hereunder was formulated with a reasonable standard of care, and in conformity with professional standards in the field. The [place] [employer] makes no representations or warranties, express or implied, including, but not limited to, any implied warranty of merchantability and/or fitness for a particular purpose, with respect to such information and specifically disclaims all such warranties. Users are advised that decisions regarding drug therapy are complex medical decisions requiring the independent, informed decision of an appropriate health resident care supervisor, and the information is provided for informational purposes only. The entire monograph for a drug should be reviewed for a thorough understanding of the drug's actions, uses and side effects. The [place] [employer] does not endorse or recommend the use of any drug.The information is not a substitute for medical care. AHFS?? Patient Medication Information?. ?? Copyright, 2023. The [employer] [employer]??, [address], [place], [place]. All Rights Reserved. Duplication for commercial use must be authorized by [facility]. Selected Revisions: February 13, 2017. AHFS?? Patient Medication Information?. ?? Copyright, 2024 * Gabriel Singh - Sydni Munson RN - 06/17/2025 12:42 PM EDT Images from the original note were not included. 66070 Recovery From Heart Surgery: The First Few [...] stop Last Reviewed Date: 2024 00:00:00 ?? 9706-5568 [employer]. All rights reserved. This information is not [...] arms away from your body. * [facility] - Sydni Munson RN - 06/17/2025 12:42 PM EDT Images from the original note were not included. 83900 After Heart Valve Surgery For the first [...] headache Last Reviewed Date: 2023 00:00:00 ?? 7904-7271 [employer]. All rights reserved. This information is not [...] 1st floor of the [facility] for a chest x-ray. Then go [...] your incisions. Do NOT lift, push, or puller through 5 pounds for six weeks. Do NOT [...] Sydni Munson CT Surgery Nurse Navigator at [phone] Friday through Friday 7am- 3:30pm [facility] [phone] after 3:30 pm, weekends and holidays - ask for the CT surgeon forensic economist. * Progress Notes - Brooke Valdez PTA - 06/17/2025 11:58 AM EDT Physical Therapy Treatment Patient Name: Bradley Forrest Today's Date: 06/17/2025 Total Treatment Time: 39 min PT Discharge Recommendations: Home with assistance Equipment Recommended: Rollator Subjective The patient states, I am doing okay. Participants in Care Family/Caregiver Present: Yes Family/Caregiver: Spouse, Other (Specify) (sister and brother) Notching Machine Operator: Not Applicable Presentation Oxygen: None (Room [...] sequencing. Bed Mobility Exam: Rolling/Turning Level of [place]: Minimum assist (75% patient effort) Physical/Nonphysical Assist: Verbal Cues, Set-up required Bed Mobility Exam: Scooting/Bridging Level of [place]: Minimum assist (75% patient's effort) (to scoot to edge of bed with cues to adhere to sternal precautions) Physical/Nonphysical Assist: Verbal Cues, Set-up required Bed Mobility Exam: Supine to Sit Level of [place]: Minimum assist (75% patient's effort) Physical/Nonphysical Assist: Verbal Cues, Set-up required, Additional assist utilized for safety Bed Mobility Exam: Sit to Supine Level of Har[place]: Minimum assist (75% patient's effort) Physical/Nonphysical Assist: Verbal Cues, Set-up required, Additional assist utilized for safety Transfers Transfer Intervention: Verbal cues provided for correct bilateral hand and foot placement during sit to stand transfers. Transfer Interventions: The patient stood at the sink for hygiene approximately 8-10 minutes with CGA of 1 person. 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 Level of [place] Adaptive Equipment Utilized Comments Feeding Grooming SBA Standing sinkside stood times 8 minutes in bathroom. Bathing Upper Body Dressing Lower Body Dressing Sock Level of Assistance: Moderate assistance, Minimal verbal cues Toileting SBA Toilet IADLs Health Management Community Re-Entry BALANCE Postural Appearance INTERVENTIONS Level of Harleton Balance Support Comments Static Sit Standby assist [...] weight shifting to promote safety. Level of [place] Physical/Non-physical Assist Adaptive Equipment Utilized Rolling/ Turning [...] transfers. 06/15/25 2 weeks Written by Inge Hagna on 06/17/25 at 2:20 PM. * Progress [...] Plan Anticoagulation Plan Warfarin Pharmacist Managed?: No [facility] Warfarin Dosing Protocol Followed?: No Bridging Agent in Conjunction With Warfarin? : Yes Ordered Agents: Enoxaparin Bridging Agent Dose: 70mg BID INR Monitoring Frequency: Monitor INR daily Patient Education : Complete and documented Warfarin dosing and adjustment per CT surgery provider. Transitions of Care Outpatient provider managing warfarin after [facility] discharge: TBD - possibly [facility] clinic Recommended date for outpatient INR assessment: TBD - of note, enoxparin copay $0 for 7 day supply Will continue to follow patient's clinical progress daily. Maria Esther Kent PharmD, ARLEEN, BCCCP, [facility] Critical Care Pharmacist - Cardiothoracic Surgery Contact via secure chat * Gabriel Singh - Maria Esther Kent PharmD - 06/17/2025 9:21 AM EDT Images from the original note were not included. Your Health Checklist: Taking Warfarin Safely - Video Follow this checklist to properly and safely take warfarin. To view the video go to this web address: https://bit.ExpoPromoter/3Khhnsw Or, scan this QR code with your [...] the video go to this web address: https://[email or web address].ExpoPromoter/[email or web address] Or, scan this QR code with your smart phone ?? [facility] [facility] * Maria Esther Houston PharmD - 06/17/2025 9:21 AM EDT Images from the original note were not included. Warfarin: Your INR Goal - Video Understand what the INR test measures, and what your healthy INR level should be. To view the video go to this web address: https://bit.ExpoPromoter/[email or web address] Or, scan this QR code with your [...] the video go to this web address: https://bit.ly/7SD8Kjb Or, scan this QR code with your [...] Certain other vegetables and fruits, including asparagus, Reasnor sprouts, and kiwifruit ? Certain soy products, such as natto (a traditional Slovak dish of fermented soybeans) Some vegetable oils [...] reduced-fat cheese, served with a whole grain Central [place] muffin ? A grilled chicken sandwich on whole grain bread with raw spinach*, tomato slices, and mustard ? Oven-roasted fish served with steamed broccoli* and medley of whole grain pasta, carrots, onions,and mushrooms * Foods higher in vitamin K Last Reviewed Date: 2025 00:00:00 ?? [id number] [employer]. All rights reserved. This information is not [...] the video go to this web address: https://bit.ly/5F5MBrK Or, scan this QR code with your smart phone ?? [employer] [facility] * Maria Esther Houston PharmD - 06/17/2025 9:21 AM EDT Images from the original note were not included. [id number] Warfarin IMPORTANT WARNING: Warfarin may cause severe [...] doctor or pharmacist will give you the roving court reporter's patient information sheet (Medication Guide) when you begin treatment with warfarin and each time you refill your prescription. Read the information carefully and ask your doctor or pharmacist if you have any questions. You can also visit the Food and Drug Administration (FDA) website (https://www.fda.gov/downloads/Drugs/DrugSafety/rxd924620.pdf) or the roving court reporter's website to obtain the Medication Guide. Talk [...] amounts of vitamin K-containing food on a cuyi-qf-fjql basis. Do not eat large amounts of [...] be awakened, immediately call emergency services at 095. Symptoms of overdose may include the following: [...] of all of the prescription and nonprescription (sosy-ggs-rijifhu) medicines, vitamins, minerals, and dietary supplements you [...] or pharmacist about specific clinical use. The [place] [employer] represents that the information provided hereunder was formulated with a reasonable standard of care, and in conformity with professional standards in the field. The [place] [employer] [employer]. makes no representations or warranties, express or implied, including, but not limited to, any implied warranty of merchantability and/or fitness for a particular purpose, with respect to such information and specifically disclaims all such warranties. Users are advised that decisions regarding drug therapy are complex medical decisions requiring the independent, informed decision of an appropriate health resident care supervisor, and the information is provided for informational purposes only. The entire monograph for a drug should be reviewed for a thorough understanding of the drug's actions, uses and side effects. The [employer] does not endorse or recommend the use of any drug.The information is not a substitute for medical care. AHFS?? Patient Medication Information?. ?? Copyright, 2023. The [employer]??, [address], [address], [place], [place]. All Rights Reserved. Duplication for commercial use must be authorized by [facility]. Selected Revisions: February 13, 2017. AHFS?? [...] Ongoing, Progressing Intervention: Promote Activity and Functional [place] Flowsheets (Taken 06/17/2025108) Activity Assistance Provided: assistance, 1 person Self-Care Promotion: independence encouraged Problem: Self-Care Deficit Goal: Improved Ability to Complete Activities of Daily Living Outcome: Ongoing, Progressing Intervention: Promote Activity and Functional [place] Flowsheets (Taken 06/17/2025108) Activity Assistance Provided: assistance, [...] Goal: Improved Activity Tolerance 06/16/20251525 by Fariba Balnton RN Outcome: Ongoing, Progressing 06/16/2025 152 by [...] Note Bradley Forrest 69 y.o. male CSN: [id number] Admission: 06/14/2025 5:18 AM Primary Problem: Severe [...] Problem(s): Weaning from mechanically assisted ventilation initiated ([facility] [facility]) (Mgyrlafm94/20/2025) Arrived intubated and sedated post-op - fast [...] 06/14/25 Brachial 06/14/25 0808 Brachial 2 GCS: [place] Coma Scale Score: 15 Review of Systems [...] post median sternotomy. Interval removal of the [place]-Ganzcatheter, right IJ sheath remains in place with tip in the mid to distal SVC. No pneumothorax or pleural effusions. Ongoing interstitial edema. 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 Notching Machine Operator (if applicable) OBJECTIVE & INTERVENTIONS PAIN [...] ACTIVITY Treatment Minutes 24 TRANSFERS Level of [place] Physical/Non- physical Assist Adaptive Equipment Utilized Sit to Stand Contact guard Verbal Cues, Additional assist utilized for safety, 1 person + 1 person to manage equipment (verbal cuing for sternal precautions) Stand to sit Contact guard Verbal Cues, 1 person + 1 person to manage equipment Interventions BALANCE Postural Appearance Posture: Rounded shoulders Level of [place] Balance Support Interventions Static Sit Standby assist Feet supported Dynamic Sit Contact guard Feet supported Static Stand Standby assist Right upper extremity support, Left upper extremity support Pt with mild dizziness when coming to stand from sitting which subsided with roughly 30 seconds of static standing Dynamic Stand Standby assist Right upper extremity support, Left upper extremity support AMBULATION Level of [place] Distance Adaptive Equipment Utilized Ambulation Standby assist, [...] Plan Anticoagulation Plan Warfarin Pharmacist Managed?: No [facility] Warfarin Dosing Protocol Followed?: No [...] clinical progress daily. Frank BrothersD PGY-2 Cardiology Gluing Pressman Available via Secure Chat * Progress Notes [...] Ongoing, Progressing Intervention: Promote Activity and Functional [place] Flowsheets Taken 06/15/20251699 by Bony Thomas RN [...] Ongoing, Progressing Intervention: Promote Activity and Functional [place] Flowsheets Taken 06/15/2025 1700 by Bony Thomas RN Activity Assistance Provided: assistance, stand-by Taken 06/14/20252154 by Svetlana Reilly RN Self-Care Promotion: independence encouraged * Consults - Nat Singletary RD - 06/15/2025 2:23 PM EDTAssociated Order(s): IP CONSULT TO NUTRITION SERVICES Adult Nutrition Evaluation Note Bradley Forrest 69 y.o. 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) GI Symptoms: Nausea, Vomiting Edema: Generalized Allergies: [...] 30.07 Weight Evaluation: Obese-Class 1 (BMI 30-34.9) [place] Body Weight (kg): 67.3 Percent [place] Body Weight: 130 Adjusted Body Weight (kg): 72.4 Estimated Needs: Kcal/ K-28 Kcal Provided: Metabolic Cart Study Results: Current Nutrition Intake: Diet Order: Adult Diet Diet Texture: Clear liquid Adult Carbohydrate Restriction: Consistent CHO 2 (1817-4574 Venkat, 80 g/meal) Fat Restriction: Cardiac Percent Meals Eaten (%): establishing Diet Experience and Nutrition History: Diet Education Provided: Will monitor Pertinent home medications: Jew needs: Nutrition Focused Physical Exam: Physical exam performed on (date): 06/15 Temples (muscles): None Clavicle (muscle): None Shoulder (muscle): None Orbital (fat): None Triceps (fat): None 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 male CSN: [id number] Admission: 06/14/2025 5:18 AM Primary Problem: Severe aortic regurgitation Bronze Chaser reviewed chart and spoke with the patient at bedside to complete this Initial Case Management Assessment. PCP: Kamran Singh MD Emergency Contact: Extended Emergency Contact Information Primary Emergency Contact: Naheed Forrest [address]: [address] [place] [address] [facility] [place] Relation: Spouse Insurance: Primary Visit Coverage Payer Plan Sponsor Code Group Number Group Name MARY HERNANDEZ [facility] [id number] Primary Visit Coverage Subscriber Subscriber ID Subscriber Name Subscriber N Subscriber Address [id number] Bradley Forrest [phone] [id number] Secondary Visit Coverage Payer Plan Sponsor Code Group Number Group Name MEDICARE MEDICARE A & B Secondary Visit Coverage Subscriber Subscriber ID Subscriber Name Subscriber N Subscriber Address [id number] Bradley Forrest [id number] Patient information: Primary Caregiver: Self Support System: Immediate family Daily Living Activities: Functional Status: Independent Living Arrangements: Spouse/Significant other Type of Residence: Private residence, Single Level [address] [place] [id number] Current DME: Equipment Currently Used at Home: [...] DME Provider: n/a Living Will/Advance Directive/Power of Rag Sorter And Cutter /Guardian: Unable to assess: No Have you [...] prior HH/O2/HD/Abx. PCP is Kamran Singh. Has [employer] insurance and uses [facility]. Family to transport and assist as [...] Plan Anticoagulation Plan Warfarin Pharmacist Managed?: No [facility] Warfarin Dosing Protocol Followed?: No Reason for Protocol Departure: CT Surgery Bridging Agent in Conjunction With Warfarin? : No INR Monitoring Frequency: Monitor INR daily Patient Education : Incomplete Warfarin dosing and adjustment per CT surgery provider. Transitions of Care Outpatient provider managing warfarin after [facility] discharge: TBD Recommended date for outpatient INR assessment: TBD Will continue to follow patient's clinical progress daily. Sy Feránndez PharmD PGY-2 Cardiology Gluing Pressman Available via Secure Chat * Assessment & [...] * Assessment & Plan Note - Belle Smiht MD - 06/15/2025 10:46 AM EDT Associated [...] Weaning from mechanically assisted ventilation initiated (CMS/HCC) (Kliekyqc57/20/2025) Arrived intubated and sedated post-op - fast [...] Weaning from mechanically assisted ventilation initiated (CMS/HCC) (Vduzsidt49/20/2025) Arrived intubated and sedated post-op - fast [...] 06/15/2025 Weaning from mechanically assisted ventilation initiated ([facility]) 06/14/2025 Diabetes 05/05/2025 Benign prostatic hyperplasia 05/05/2025 CAD (coronary artery disease) 04/14/2025 History of coronary angioplasty with insertion of stent 04/14/2025 Ascending aortic aneurysm ([facility]) 04/14/2025 Aortic valve regurgitation 04/14/2025 BMI [...] No 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) Level of Mobility: Ambulatory- community Mobility [place]: Independent gait without device History of Falls: [...] Mobility Exam: Sit to Supine Level of [place]: Maximum assist (25% patient's effort) Physical/Nonphysical Assist: Verbal Cues, Maximal cues, Additional assist utilized for safety Transfers Transfer Exam: Sit to stand Level of [place]: Moderate assist (50% patient's effort) Physical/Nonphysical Assist: Verbal Cues, Moderate cues, Additional assist utilized for safety Assistive Device: Rollator Transfer Exam: Stand to Sit Level of [place]: Minimum assist (75% patient's effort) Physical/Nonphysical Assist: [...] activity. Standardized Assessments Standardized Assessments Standardized Assessments: [facility] 6-Clicks Mobility Assessment [facility] 6-Clicks Mobility Assessment Difficulty patient has turning [...] 3-5 steps with a railing?: A little [facility] 6-Clicks Mobility Assessment Total : 16 No [...] 06/15/2025 Weaning from mechanically assisted ventilation initiated ([facility]) 06/14/2025 Diabetes 05/05/2025 Benign prostatic hyperplasia 05/05/2025 CAD (coronary artery disease) 04/14/2025 History of coronary angioplasty with insertion of stent 04/14/2025 Ascending aortic aneurysm ([facility]) 04/14/2025 Aortic valve regurgitation 04/14/2025 BMI [...] No 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) Level of Mobility: Ambulatory- community Mobility [place]: Independent gait without device History of Falls: [...] Mobility Exam: Sit to Supine Level of [place]: Maximum assist (25% patient's effort) Physical/Nonphysical Assist: Verbal Cues, Maximal cues, Additional assist utilized for safety Transfers Transfer Exam: Sit to stand Level of [place]: Moderate assist (50% patient's effort) Physical/Nonphysical Assist: Verbal Cues, Moderate cues, Additional assist utilized for safety Assistive Device: Rollator Transfer Exam: Stand to Sit Level of [place]: Minimum assist (75% patient's effort) Physical/Nonphysical Assist: [...] education to improve carryover. Standardized Assessments [facility] 6-Click Daily Activities Help from Other: Don/Doff Regular Lower Body Clothings: A lot Help From Other: Bathing: A lot Help From Other: Toileting: A lot Help From Other: Don/Doff Upper Body Clothings: Little Help From Other: Grooming: Little Help From Other: Eating Meals: None [facility] 6 Click - Daily Activities Score: [...] Right 06/14/25 0832 Internal jugular 1 GCS: [place] Coma Scale Score: 15 Review of Systems [...] of NG tube. Right internal jugular approach [place]-Shira catheter and mediastinal drain in unchanged position. [...] Problem(s): Weaning from mechanically assisted ventilation initiated ([facility]) (Aaucrfex30/20/2025) Arrived intubated and sedated post-op - fast [...] for analgesia prior to leaving the OR. [facility] services were consulted for [...] pressure support 8/ Edited by: Balta Washington, CHUTE FEEDER, DNP at 06/14/2025 2253 Lines/Drains/Tubes: Patient Lines/Drains/Airways [...] Ongoing, Progressing Intervention: Promote Activity and Functional [place] Flowsheets (Taken 06/14/20252154) Activity Assistance Provided: assistance, [...] Weaning from mechanically assisted ventilation initiated (CMS/HCC) (Rfofecgq49/20/2025) Arrived intubated and sedated post-op - fast [...] for analgesia prior to leaving the OR. [facility] services were consulted for [...] 06/14/25 1327 Mediastinal less than 1 NG/OG [place] Sump Orogastric 18 Fr Center mouth 06/14/25 [...] Per this written report. Drafted by Tima Cotneh MD on 06/14/2025 3:30 PM Final report [...] 2 tablets by mouth every morning. Under [place] law, monthly prescriptions (30 days) can be refilled at 25 days and three-month prescriptions (90 days) at 80 days. Please contact the insurance company with questions if refills are denied. (Patient taking differently: Take 2 tablets by mouth every 4 hours as needed. Under [place] law, monthly prescriptions (30 days) can be [...] Saint Jose mechanical prosthesis. Date: 06/14/25 Location: [place] [facility] Name: Bradley Forrest, : 1955, Diagnoses: Pre-op Diagnosis Severe aortic regurgitation Post-op Diagnosis Severe aortic regurgitation Coronary artery disease due to calcified coronary lesion History of coronary angioplasty with insertion of stent Left ventricular enlargement Procedure(s): Median sternotomy, aortic valve replacement using a 25 mm Saint Jose mechanical prosthesis. Attending Surgeon(s): * Phillip Clark - Primary Labor Union Business Representative(s): * Turner Pablo MD - Fellow Anesthesia: General ASA: IV Blood Administration: Blood Product Administration History None Estimated Blood Loss: 150 mL Drains: Chest Tube Mediastinal 36 Fr (Active) Function -20 cm H2O 06/14/25 1600 Chest Tube Air Leak No 06/14/25 1600 Patency Intervention Tip/tilt 06/14/25 1600 Drainage Description Dark red 06/14/25 1600 NG/OG [place] Sump Orogastric 18 Fr Center mouth (Active) Urethral Catheter Temperature probe 16 Fr. (Active) Implants Type Name Action Serial No. GRAFT PTCH [id number] FELT - [id number] Implanted VALVE ATRIAL 25MM ROTATABL CUF STD PTFE - [id number] - [id number] Implanted [id number] Specimen: Specimens ID Source Frozen? 1 Heart [...] stenting of his coronaries. In addition his terminal gauger, Jd Duvall, had done an echocardiogram which [...] was induced, monitoring lines were placed, a [place]-Shira catheter was floated into position and a [...] Prolene and a tack seal. One 36 Mal[place] chest tube was placed. Chest tubes and pacing wires were secured to the anterior abdominal wall. The sternum was reapproximated with #7 [id number] stainless steel wires, the fasciawas closed with [...] 2 tablets by mouth every morning. Under [place] law, monthly prescriptions (30 days) can be refilled at 25 days and three-month prescriptions (90 days) at 80 days. Please contact the insurance company with questions if refills are denied. Patient taking differently: Take 2 tablets by mouth every 4 hours as needed. Under [place] law, monthly prescriptions (30 days) can be [...] [facility] [address], [address] [place] [address] Phillip Clark MD [address] [place] [address] Pending Results Name Type Priority [...] - 99 mg/dL 06/20/2025 2:47 AM EDT [facility] BUN, Plasma 22 8 - 23 mg/dL 06/20/2025 2:47 AM EDT [facility] Creatinine, Plasma 0.85 0.70 - 1.20 mg/dL 06/20/2025 2:47 AM EDT [facility] BUN/Creatinine Ratio 26 06/20/2025 2:47 AM EDT [facility] Sodium, Plasma 131(L) 136 - 145 mmol/L 06/20/2025 2:47 AM EDT [facility] Potassium, Plasma 4.0 3.6 - 4.9 mmol/L 06/20/2025 2:47 AM EDT [facility] Chloride, Plasma 102 97 - 107 mmol/L 06/20/2025 2:47 AM EDT [facility] CO2, Plasma 24 22 - 29 mmol/L 06/20/2025 2:47 AM EDT [facility] Anion Gap 5(L) 6 - 16 mmol/L 06/20/2025 2:47 AM EDT [facility] Total Calcium, Plasma 7.9(L) 8.9 - 10.2 mg/dL 06/20/2025 2:47 AM EDT [facility] eGFRcr 94.1 mL/min/1.7 3m*2 06/20/2025 2:47 AM EDT [facility] Comment:Reported eGFRcr in m L/min/1.73m2 is based the CKD-EPI 2020 equation that does not use a race coefficient. Blood Venous blood specimen / Unknown Venipuncture / Unknown 06/20/2025 1:52 AM EDT 06/20/2025 1:59 AM EDT Phillip Clark MD LAB BLOOD ORDERABLES Final R esult Performing Organization Address City/[facility] Co de Phone Number [facility] [address] [place] [address] * Phosphorus (06/20/2025 1:52 AM EDT) Phosphorus, Plasma 2.8 2.5 - 4.5 mg/dL 06/20/2025 2:23 AM EDT [facility] Blood Venous blood specimen / Unknown Venipuncture / Unknown 06/20/2025 1:52 AM EDT 06/20/2025 1:59 AM EDT us Phillip Clark MD LAB BLOOD ORDERABLES Final R esult Performing Organization Address City/[facility]/ZIP Co de Phone Number [facility] [address] [place] [address] * (ABNORMAL) Protime-INR (06/20/2025 1:52 AM EDT) Prothrombin Time 30.4(H) 12.0 - 14.3 sec LAB COAGULATION METHOD 06/20/2025 2:29 AM EDT [facility] INR 2.9(H) 0.9 - 1.1 LAB COAGULATION METHOD 06/20/2025 2:29 AM EDT [facility] Blood Venous blood specimen / Unknown Venipuncture / Unknown 06/20/2025 1:52 AM EDT 06/20/2025 1:59 AM EDT Narrative [facility] - 06/20/2025 2:29 AM EDT OPTIMAL INR RANGES FOR PATIENT ON ORAL ANTICOAGULANT THERAPY Prevention of venous thromboembolism INR 2.0 to 3.0 In patients with heart disease: Atrial fibrillation INR 2.0 to 3.0 Valvular heart disease INR 2.0 to 3.0 Tissue heart valves INR 2.0 to 3.0 Mechanical prosthetic valves INR 2.5 to 3.5 Prevention of recurrent MD INR 2.5 to 3.5 us Phillip Clark MD LAB BLOOD ORDERABLES Final R esult Performing Organization Address City/[facility]/ZIP Co de Phone Number [facility] [address] [place] [address] * Magnesium (06/20/2025 1:52 AM EDT) [facility] Magnesium, Plasma 2.2 1.9 - 2.4 mg/dL 06/20/2025 2:23 AM EDT [facility] Blood Venous blood specimen / Unknown Venipuncture / Unknown 06/20/2025 1:52 AM EDT 06/20/2025 1:59 AM EDT us Phillip Clark MD LAB BLOOD ORDERABLES Final R esult Performing Organization Address City/[facility]/ZIP Co de Phone Number [facility] [address] [place] [address] * (ABNORMAL) CBC (06/20/2025 1:52 AM EDT) [facility] WBC Count 6.95 3.70 - 10.30 10*3/uL LAB HEMATOLOGY METHOD 06/20/2025 2:07 AM EDT [facility] RBC Count 3.73(L) 4.60 - 6.10 10*6/uL LAB HEMATOLOGY METHOD 06/20/2025 2:07 AM EDT [facility] HGB 10.4(L) 13.7 - 17.5 g/dL LAB HEMATOLOGY METHOD 06/20/2025 2:07 AM EDT [facility] HCT 31.9(L) 40.0 - 51.0 % LAB HEMATOLOGY METHOD 06/20/2025 2:07 AM EDT [facility] Platelet Count 187 155 - 369 10*3/uL LAB HEMATOLOGY METHOD 06/20/2025 2:07 AM EDT [facility] MCV 86 79 - 98 fL LAB HEMATOLOGY METHOD 06/20/2025 2:07 AM EDT [facility] MCH 27.9 26.0 - 32.0 pg LAB HEMATOLOGY METHOD 06/20/2025 2:07 AM EDT [facility] MCHC 32.6 30.7 - 35.5 g/dL LAB HEMATOLOGY METHOD 06/20/2025 2:07 AM EDT [facility] RDW 14.8(H) 11.5 - 14.5 % LAB HEMATOLOGY METHOD 06/20/2025 2:07 AM EDT [facility] MPV 10.2 8.8 - 12.5 fL LAB HEMATOLOGY METHOD 06/20/2025 2:07 AM EDT [facility] nRBC 0.0 <=0.0 per 100 WBCs LAB HEMATOLOGY METHOD 06/20/2025 2:07 AM EDT [facility] Blood Venous blood specimen / Unknown Venipuncture / Unknown 06/20/2025 1:52 AM EDT 06/20/2025 1:59 AM EDT us Phillip Clark MD LAB BLOOD ORDERABLES Final R esult Performing Organization Address City/State/[facility] Co de Phone Number [facility] [address] [place] [address] * PERIPHERAL IV (SMARTFORM LINK) (06/20/2025 1:47 [...] QTC Interval 478 ms MUSE ECG P Warren 43 degrees MUSE ECG R Warren -30 degrees MUSE ECG T Wave Warren 36 degrees MUSE ECG Diagnosis Poor data quality, interpretation may be adversely affected MUSE ECG Diagnosis Sinus rhythm with premature supraventricular complexes and with occasional premature ventricular complexes MUSE ECG Diagnosis Left axis deviation MUSE ECG Diagnosis Poor R-wave progression MUSE ECG Diagnosis Abnormal ECG MUSE ECG Diagnosis Recommend repeat ECG MUSE ECG Diagnosis MUSE ECG Diagnosis Confirmed by Aman Coe ([id number]) on 06/19/2025 1:33:10 PM MUSE ECG 06/19/2025 12:4 9 PM EDT 06/19/2025 1:33 PM EDT us Barbara MARIE ECG ORDERABLES Final Resul t MUSE ECG * (ABNORMAL) Basic metabolic panel (06/19/2025 2:38 AM EDT) Glucose, Plasma 102(H) 74 - 99 mg/dL 06/19/2025 4:10 AM EDT [facility] BUN, Plasma 25(H) 8 - 23 mg/dL 06/19/2025 4:10 AM EDT [facility] Creatinine, Plasma 1.02 0.70 - 1.20 mg/dL 06/19/2025 4:10 AM EDT [facility] BUN/Creatinine Ratio 25 06/19/2025 4:10 AM EDT [facility] Sodium, Plasma 134(L) 136 - 145 mmol/L 06/19/2025 4:10 AM EDT [facility] Potassium, Plasma 4.6 3.6 - 4.9 mmol/L 06/19/2025 4:10 AM EDT [facility] Comment:Hemolyzed - Potassiu m may be falsely elevated by approximately 0.4-0.7 mmol/L. Chloride, Plasma 102 97 - 107 mmol/L 06/19/2025 4:10 AM EDT [facility] CO2, Plasma 23 22 - 29 mmol/L 06/19/2025 4:10 AM EDT [facility] Anion Gap 9 6 - 16 mmol/L 06/19/2025 4:10 AM EDT [facility] Total Calcium, Plasma 8.4(L) 8.9 - 10.2 mg/dL 06/19/2025 4:10 AM EDT [facility] eGFRcr 79.6 mL/min/1.7 3m*2 06/19/2025 4:10 AM EDT [facility] Comment:Reported eGFRcr in m L/min/1.73m2 is based the CKD-EPI 2020 equation that does not use a race coefficient. Blood Venous blood specimen / Unknown Venipuncture / Unknown 06/19/2025 2:38 AM EDT 06/19/2025 2:54 AM EDT us Phillip Clark MD LAB BLOOD ORDERABLES Final R esult Performing Organization Address City/[facility] Co de Phone Number [facility] [address] [place] [address] * Phosphorus (06/19/2025 2:38 AM EDT) Phosphorus, Plasma 3.6 2.5 - 4.5 mg/dL 06/19/2025 4:10 AM EDT [facility] Blood Venous blood specimen / Unknown Venipuncture / Unknown 06/19/2025 2:38 AM EDT 06/19/2025 2:54 AM EDT Phillip Clark MD LAB BLOOD ORDERABLES Final R esult Performing Organization Address City/[facility]/ZIP Co de Phone Number [facility] [address] [place] [address] * (ABNORMAL) Protime-INR (06/19/2025 2:38 AM EDT) Prothrombin Time 26.3(H) 12.0 - 14.3 sec LAB COAGULATION METHOD 06/19/2025 3:09 AM EDT [facility] INR 2.4(H) 0.9 - 1.1 LAB COAGULATION METHOD 06/19/2025 3:09 AM EDT [facility] Blood Venous blood specimen / Unknown Venipuncture / Unknown 06/19/2025 2:38 AM EDT 06/19/2025 2:54 AM EDT Narrative [facility] - 06/19/2025 3:09 AM EDT OPTIMAL INR RANGES FOR PATIENT ON ORAL ANTICOAGULANT THERAPY Prevention of venous thromboembolism INR 2.0 to 3.0 In patients with heart disease: Atrial fibrillation INR 2.0 to 3.0 Valvular heart disease INR 2.0 to 3.0 Tissue heart valves INR 2.0 to 3.0 Mechanical prosthetic valves INR 2.5 to 3.5 Prevention of recurrent MD INR 2.5 to 3.5 us Phillip Clark MD LAB BLOOD ORDERABLES Final R esult [facility] [address] [place] [address] * Magnesium (06/19/2025 2:38 AM EDT) Pathologist [facility] Magnesium, Plasma 2.4 1.9 - 2.4 mg/dL 06/19/2025 4:10 AM EDT [facility] Blood Venous blood specimen / Unknown Venipuncture / Unknown 06/19/2025 2:38 AM EDT 06/19/2025 2:54 AM EDT Phillip Clark MD LAB BLOOD ORDERABLES Final R esult [facility] [address] [place] [address] * (ABNORMAL) CBC (06/19/2025 2:38 AM EDT) WBC Count 6.94 3.70 - 10.30 10*3/uL LAB HEMATOLOGY METHOD 06/19/2025 3:17 AM EDT [facility] RBC Count 4.12(L) 4.60 - 6.10 10*6/uL LAB HEMATOLOGY METHOD 06/19/2025 3:17 AM EDT [facility] HGB 11.5(L) 13.7 - 17.5 g/dL LAB HEMATOLOGY METHOD 06/19/2025 3:17 AM EDT [facility] HCT 35.7(L) 40.0 - 51.0 % LAB HEMATOLOGY METHOD 06/19/2025 3:17 AM EDT [facility] Platelet Count 165 155 - 369 10*3/uL LAB HEMATOLOGY METHOD 06/19/2025 3:17 AM EDT [facility] MCV 87 79 - 98 fL LAB HEMATOLOGY METHOD 06/19/2025 3:17 AM EDT [facility] MCH 27.9 26.0 - 32.0 pg LAB HEMATOLOGY METHOD 06/19/2025 3:17 AM EDT [facility] MCHC 32.2 30.7 - 35.5 g/dL LAB HEMATOLOGY METHOD 06/19/2025 3:17 AM EDT [facility] RDW 14.8(H) 11.5 - 14.5 % LAB HEMATOLOGY METHOD 06/19/2025 3:17 AM EDT [facility] MPV 10.6 8.8 - 12.5 fL LAB HEMATOLOGY METHOD 06/19/2025 3:17 AM EDT [facility] nRBC 0.0 <=0.0 per 100 WBCs LAB HEMATOLOGY METHOD 06/19/2025 3:17 AM EDT [facility] Blood Venous blood specimen / Unknown Venipuncture / Unknown 06/19/2025 2:38 AM EDT 06/19/2025 2:54 AM EDT us Phillip Clark MD LAB BLOOD ORDERABLES Final R esult [facility] [address] [place] [address] * XR Chest 1 View (06/19/2025 1:50 [...] - 99 mg/dL 06/18/2025 2:17 AM EDT [facility] BUN, Plasma 18 8 - 23 mg/dL 06/18/2025 2:17 AM EDT [facility] Creatinine, Plasma 0.82 0.70 - 1.20 mg/dL 06/18/2025 2:17 AM EDT [facility] BUN/Creatinine Ratio 22 06/18/2025 2:17 AM EDT [facility] Sodium, Plasma 134(L) 136 - 145 mmol/L 06/18/2025 2:17 AM EDT [facility] Potassium, Plasma 3.7 3.6 - 4.9 mmol/L 06/18/2025 2:17 AM EDT [facility] Chloride, Plasma 100 97 - 107 mmol/L 06/18/2025 2:17 AM EDT [facility] CO2, Plasma 26 22 - 29 mmol/L 06/18/2025 2:17 AM EDT [facility] Anion Gap 8 6 - 16 mmol/L 06/18/2025 2:17 AM EDT [facility] Total Calcium, Plasma 8.1(L) 8.9 - 10.2 mg/dL 06/18/2025 2:17 AM EDT [facility] eGFRcr 95.1 mL/min/1.7 3m*2 06/18/2025 2:17 AM EDT [facility] Comment:Reported eGFRcr in m L/min/1.73m2 is based the CKD-EPI 2020 equation that does not use a race coefficient. Blood Blood sample taken from central line / Unknown Venipuncture / Unknown 06/18/2025 1:43 AM EDT 06/18/2025 1:48 AM EDT Phillip Clark MD LAB BLOOD ORDERABLES Final R esult Performing Organization Address City/[facility]/ZIP Co de Phone Number [facility] [address] [place] [address] * Phosphorus (06/18/2025 1:43 AM EDT) Pathologist [facility] [place] Phosphorus, Plasma 2.6 2.5 - 4.5 mg/dL 06/18/2025 2:17 AM EDT [facility] Blood Blood sample taken from central line / Unknown Venipuncture / Unknown 06/18/2025 1:43 AM EDT 06/18/2025 1:48 AM EDT Phillip Clark MD LAB BLOOD ORDERABLES Final R esult Performing Organization Address City/[facility] Co de Phone Number [facility] [address] [place] [address] * (ABNORMAL) Protime-INR (06/18/2025 1:43 AM EDT) Prothrombin Time 25.2(H) 12.0 - 14.3 sec LAB COAGULATION METHOD 06/18/2025 2:07 AM EDT [facility] INR 2.3(H) 0.9 - 1.1 LAB COAGULATION METHOD 06/18/2025 2:07 AM EDT [facility] Blood Blood sample taken from central line / Unknown Venipuncture / Unknown 06/18/2025 1:43 AM EDT 06/18/2025 1:48 AM EDT Narrative [facility] - 06/18/2025 2:07 AM EDT OPTIMAL INR RANGES FOR PATIENT ON ORAL ANTICOAGULANT THERAPY Prevention of venous thromboembolism INR 2.0 to 3.0 In patients with heart disease: Atrial fibrillation INR 2.0 to 3.0 Valvular heart disease INR 2.0 to 3.0 Tissue heart valves INR 2.0 to 3.0 Mechanical prosthetic valves INR 2.5 to 3.5 Prevention of recurrent MD INR 2.5 to 3.5 Phillip Clark MD LAB BLOOD ORDERABLES Final R esult Performing Organization Address [facility]/ZIP Co de Phone Number [facility] [address] [place] [address] * Magnesium (06/18/2025 1:43 AM EDT) [facility] Magnesium, Plasma 2.3 1.9 - 2.4 mg/dL 06/18/2025 2:17 AM EDT [facility] Blood Blood sample taken from central line / Unknown Venipuncture / Unknown 06/18/2025 1:43 AM EDT 06/18/2025 1:48 AM EDT Phillip Clark MD LAB BLOOD ORDERABLES Final R esult Performing Organization Address [facility] de Phone Number [facility] [address] [place] [address] * (ABNORMAL) CBC (06/18/2025 1:43 AM EDT) [facility] WBC Count 8.51 3.70 - 10.30 10*3/uL LAB HEMATOLOGY METHOD 06/18/2025 1:54 AM EDT [facility] RBC Count 3.67(L) 4.60 - 6.10 10*6/uL LAB HEMATOLOGY METHOD 06/18/2025 1:54 AM EDT [facility] HGB 10.6(L) 13.7 - 17.5 g/dL LAB HEMATOLOGY METHOD 06/18/2025 1:54 AM EDT [facility] HCT 31.2(L) 40.0 - 51.0 % LAB HEMATOLOGY METHOD 06/18/2025 1:54 AM EDT [facility] Platelet Count 121(L) 155 - 369 10*3/uL LAB HEMATOLOGY METHOD 06/18/2025 1:54 AM EDT [facility] MCV 85 79 - 98 fL LAB HEMATOLOGY METHOD 06/18/2025 1:54 AM EDT [facility] MCH 28.9 26.0 - 32.0 pg LAB HEMATOLOGY METHOD 06/18/2025 1:54 AM EDT [facility] MCHC 34.0 30.7 - 35.5 g/dL LAB HEMATOLOGY METHOD 06/18/2025 1:54 AM EDT [facility] RDW 14.7(H) 11.5 - 14.5 % LAB HEMATOLOGY METHOD 06/18/2025 1:54 AM EDT [facility] MPV 10.4 8.8 - 12.5 fL LAB HEMATOLOGY METHOD 06/18/2025 1:54 AM EDT [facility] nRBC 0.0 <=0.0 per 100 WBCs LAB HEMATOLOGY METHOD 06/18/2025 1:54 AM EDT [facility] Blood Blood sample taken from central line / Unknown Venipuncture / Unknown 06/18/2025 1:43 AM EDT 06/18/2025 1:48 AM EDT us Phillip Clark MD LAB BLOOD ORDERABLES Final R esult [facility] [address] [place] [address] * XR Chest 1 View (06/17/2025 3:14 [...] signing this report, I, the attending physician, [email or web address] I have personally reviewed the images/data for [...] - 99 mg/dL 06/17/2025 12:54 AM EDT [facility] BUN, Plasma 15 8 - 23 mg/dL 06/17/2025 12:54 AM EDT [facility] Creatinine, Plasma 0.81 0.70 - 1.20 mg/dL 06/17/2025 12:54 AM EDT [facility] BUN/Creatinine Ratio 19 06/17/2025 12:54 AM EDT [facility] Sodium, Plasma 133(L) 136 - 145 mmol/L 06/17/2025 12:54 AM EDT [facility] Potassium, Plasma 3.9 3.6 - 4.9 mmol/L 06/17/2025 12:54 AM EDT [facility] Chloride, Plasma 98 97 - 107 mmol/L 06/17/2025 12:54 AM EDT [facility] CO2, Plasma 25 22 - 29 mmol/L 06/17/2025 12:54 AM EDT [facility] Anion Gap 10 6 - 16 mmol/L 06/17/2025 12:54 AM EDT [facility] Total Calcium, Plasma 8.1(L) 8.9 - 10.2 mg/dL 06/17/2025 12:54 AM EDT [facility] eGFRcr 95.4 mL/min/1.7 3m*2 06/17/2025 12:54 AM EDT [facility] Comment:Reported eGFRcr in m L/min/1.73m2 is based the CKD-EPI 2020 equation that does not use a race coefficient. Blood Blood sample taken from central line / Unknown Venipuncture / Unknown 06/17/2025 12:17 AM EDT 06/17/2025 12:24 AM EDT us Phillip Clark MD LAB BLOOD ORDERABLES Final R esult Performing Organization Address City/[facility]/ZIP Co de Phone Number [facility] [address] [place] [address] * Phosphorus (06/17/2025 12:17 AM EDT) Phosphorus, Plasma 2.9 2.5 - 4.5 mg/dL 06/17/2025 12:54 AM EDT [facility] Blood Blood sample taken from central line / Unknown Venipuncture / Unknown 06/17/2025 12:17 AM EDT 06/17/2025 12:24 AM EDT us Phillip Clark MD LAB BLOOD ORDERABLES Final R esult Performing Organization Address City/[facility]/ZIP Co de Phone Number [facility] [address] [place] [address] * (ABNORMAL) Protime-INR (06/17/2025 12:17 AM EDT) Prothrombin Time 18.7(H) 12.0 - 14.3 sec LAB COAGULATION METHOD 06/17/2025 1:16 AM EDT [facility] INR 1.5(H) 0.9 - 1.1 LAB COAGULATION METHOD 06/17/2025 1:16 AM EDT [facility] Blood Blood sample taken from central line / Unknown Venipuncture / Unknown 06/17/2025 12:17 AM EDT 06/17/2025 12:24 AM EDT Narrative [facility] - 06/17/2025 1:16 AM EDT OPTIMAL INR RANGES FOR PATIENT ON ORAL ANTICOAGULANT THERAPY Prevention of venous thromboembolism INR 2.0 to 3.0 In patients with heart disease: Atrial fibrillation INR 2.0 to 3.0 Valvular heart disease INR 2.0 to 3.0 Tissue heart valves INR 2.0 to 3.0 Mechanical prosthetic valves INR 2.5 to 3.5 Prevention of recurrent MD INR 2.5 to 3.5 us Phillip Clark MD LAB BLOOD ORDERABLES Final R esult Performing Organization Address City/[facility]/ZIP Co de Phone Number [facility] [address] [place] [address] * Magnesium (06/17/2025 12:17 AM EDT) Magnesium, Plasma 2.3 1.9 - 2.4 mg/dL 06/17/2025 12:54 AM EDT [facility] Blood Blood sample taken from central line / Unknown Venipuncture / Unknown 06/17/2025 12:17 AM EDT 06/17/2025 12:24 AM EDT Phillip Clark MD LAB BLOOD ORDERABLES Final R esult [facility] [address] [place] [address] * (ABNORMAL) CBC (06/17/2025 12:17 AM EDT) WBC Count 10.83(H) 3.70 - 10.30 10*3/uL LAB HEMATOLOGY METHOD 06/17/2025 12:32 AM EDT [facility] RBC Count 4.08(L) 4.60 - 6.10 10*6/uL LAB HEMATOLOGY METHOD 06/17/2025 12:32 AM EDT [facility] HGB 11.3(L) 13.7 - 17.5 g/dL LAB HEMATOLOGY METHOD 06/17/2025 12:32 AM EDT [facility] HCT 35.0(L) 40.0 - 51.0 % LAB HEMATOLOGY METHOD 06/17/2025 12:32 AM EDT [facility] Platelet Count 116(L) 155 - 369 10*3/uL LAB HEMATOLOGY METHOD 06/17/2025 12:32 AM EDT [facility] MCV 86 79 - 98 fL LAB HEMATOLOGY METHOD 06/17/2025 12:32 AM EDT [facility] MCH 27.7 26.0 - 32.0 pg LAB HEMATOLOGY METHOD 06/17/2025 12:32 AM EDT [facility] MCHC 32.3 30.7 - 35.5 g/dL LAB HEMATOLOGY METHOD 06/17/2025 12:32 AM EDT [facility] RDW 15.1(H) 11.5 - 14.5 % LAB HEMATOLOGY METHOD 06/17/2025 12:32 AM EDT [facility] MPV 10.3 8.8 - 12.5 fL LAB HEMATOLOGY METHOD 06/17/2025 12:32 AM EDT [facility] nRBC 0.0 <=0.0 per 100 WBCs LAB HEMATOLOGY METHOD 06/17/2025 12:32 AM EDT [facility] Blood Blood sample taken from central line / Unknown Venipuncture / Unknown 06/17/2025 12:17 AM EDT 06/17/2025 12:24 AM EDT us Phillip Clark MD LAB BLOOD ORDERABLES Final R esult [facility] [address] [place] [address] * Magnesium (06/16/2025 5:35 PM EDT) Magnesium, Plasma 2.2 1.9 - 2.4 mg/dL 06/16/2025 7:41 PM EDT [facility] Blood Venous blood specimen / Unknown Venipuncture / Unknown 06/16/2025 5:35 PM EDT 06/16/2025 7:12 PM EDT us Phillip Clark MD LAB BLOOD ORDERABLES Final R esult [facility] [address] [place] [address] * (ABNORMAL) Renal function panel (06/16/2025 5:35 PM EDT) Glucose, Plasma 89 74 - 99 mg/dL 06/16/2025 7:41 PM EDT [facility] BUN, Plasma 15 8 - 23 mg/dL 06/16/2025 7:41 PM EDT [facility] Creatinine, Plasma 0.79 0.70 - 1.20 mg/dL 06/16/2025 7:41 PM EDT [facility] BUN/Creatinine Ratio 19 06/16/2025 7:41 PM EDT [facility] Sodium, Plasma 134(L) 136 - 145 mmol/L 06/16/2025 7:41 PM EDT [facility] Potassium, Plasma 3.8 3.6 - 4.9 mmol/L 06/16/2025 7:41 PM EDT [facility] Chloride, Plasma 98 97 - 107 mmol/L 06/16/2025 7:41 PM EDT [facility] CO2, Plasma 25 22 - 29 mmol/L 06/16/2025 7:41 PM EDT [facility] Anion Gap 11 6 - 16 mmol/L 06/16/2025 7:41 PM EDT [facility] Total Calcium, Plasma 8.4(L) 8.9 - 10.2 mg/dL 06/16/2025 7:41 PM EDT [facility] Phosphorus, Plasma 2.2(L) 2.5 - 4.5 mg/dL 06/16/2025 7:41 PM EDT [facility] Albumin, Plasma 3.4(L) 3.5 - 5.2 g/dL 06/16/2025 7:41 PM EDT [facility] eGFRcr 96.2 mL/min/1.7 3m*2 06/16/2025 7:41 PM EDT [facility] Comment:Reported eGFRcr in m L/min/1.73m2 is based the CKD-EPI 2020 equation that does not use a race coefficient. Blood Venous blood specimen / Unknown Venipuncture / Unknown 06/16/2025 5:35 PM EDT 06/16/2025 7:12 PM EDT us Phillip Clark MD LAB BLOOD ORDERABLES Final R esult [facility] [address] [place] [address] * AL CRITICAL CARE, E/M 30-74 MINUTES [...] - 99 mg/dL 06/16/2025 8:45 AM EDT [facility] Comment:Accuracy of a glucos e result [...] Comment 06/16/2025 8:45 AM EDT [facility] Fancy Wire Drawer ID Fariba Blanton [id number] 8:45 AM EDT [facility] Device ID [id number] 06/16/2025 8:45 AM EDT [facility] Specimen Type POC Arterial 06/16/2025 8:45 AM EDT [facility] Blood Arterial blood specimen / Unknown 06/16/2025 8:40 AM EDT 06/16/2025 8:45 AM EDT us Phillip Clark MD LAB POINT OF CARE TE ST DOCKED DEVICE UNSOLICITED RESULTS Final Result [facility] [address] [place] [address] * (ABNORMAL) Basic metabolic panel (06/16/2025 5:58 AM EDT) Glucose, Plasma 124(H) 74 - 99 mg/dL 06/16/2025 6:35 AM EDT [facility] BUN, Plasma 16 8 - 23 mg/dL 06/16/2025 6:35 AM EDT [facility] Creatinine, Plasma 0.83 0.70 - 1.20 mg/dL 06/16/2025 6:35 AM EDT [facility] BUN/Creatinine Ratio 19 06/16/2025 6:35 AM EDT [facility] Sodium, Plasma 132(L) 136 - 145 mmol/L 06/16/2025 6:35 AM EDT [facility] Potassium, Plasma 3.8 3.6 - 4.9 mmol/L 06/16/2025 6:35 AM EDT [facility] Chloride, Plasma 100 97 - 107 mmol/L 06/16/2025 6:35 AM EDT [facility] CO2, Plasma 25 22 - 29 mmol/L 06/16/2025 6:35 AM EDT [facility] Anion Gap 7 6 - 16 mmol/L 06/16/2025 6:35 AM EDT [facility] Total Calcium, Plasma 8.4(L) 8.9 - 10.2 mg/dL 06/16/2025 6:35 AM EDT [facility] eGFRcr 94.7 mL/min/1.7 3m*2 06/16/2025 6:35 AM EDT [facility] Comment:Reported eGFRcr in m L/min/1.73m2 is based the CKD-EPI 2020 equation that does not use a race coefficient. Blood Arterial blood specimen / Unknown Venipuncture / Unknown 06/16/2025 5:58 AM EDT 06/16/2025 6:05 AM EDT us Phillip Clark MD LAB BLOOD ORDERABLES Final R esult [facility] [address] [place] [address] * XR Chest 1 View (06/16/2025 5:14 AM EDT) Anatomical Region Laterality Modality Chest Digital Radiogra phy Impressions 06/16/2025 8:15 AM EDT Interval removal of the [place] catheter, the right IJ sheath remains in [...] post median sternotomy. Interval removal of the [place] catheter, right IJ sheath remains in place with tip in the mid to distal SVC. No pneumothorax or pleural effusions. Ongoing interstitial edema. Procedure Note Mona Smith MD - 06/16/2025 CLINICAL INDICATION: Post-Op Cardiac Surgery TECHNIQUE: XR CHEST 1 VIEW COMPARISON: Chest radiograph 06/15/2025 FINDINGS: Enlarged cardiac silhouette stable status post median sternotomy. Intervalremoval of the [place] catheter, right IJ sheath remains in place withtip in the mid to distal SVC. No pneumothorax or pleural effusions. Ongoing interstitial edema. IMPRESSION: Interval removal of the [place] catheter, the right IJ sheath remainsin place [...] - 4.5 mg/dL 06/16/2025 1:12 AM EDT [facility] Blood Arterial blood specimen / Unknown Venipuncture / Unknown 06/16/2025 12:36 AM EDT 06/16/2025 12:48 AM EDT Phillip Clark MD LAB BLOOD ORDERABLES Final R esult [facility] [address] [place] [address] * (ABNORMAL) Protime-INR (06/16/2025 12:36 AM EDT) Prothrombin Time 18.0(H) 12.0 - 14.3 sec LAB COAGULATION METHOD 06/16/2025 1:06 AM EDT [facility] INR 1.5(H) 0.9 - 1.1 LAB COAGULATION METHOD 06/16/2025 1:06 AM EDT [facility] Blood Arterial blood specimen / Unknown Venipuncture / Unknown 06/16/2025 12:36 AM EDT 06/16/2025 12:48 AM EDT Narrative [facility] - 06/16/2025 1:06 AM EDT OPTIMAL INR RANGES FOR PATIENT ON ORAL ANTICOAGULANT THERAPY Prevention of venous thromboembolism INR 2.0 to 3.0 In patients with heart disease: Atrial fibrillation INR 2.0 to 3.0 Valvular heart disease INR 2.0 to 3.0 Tissue heart valves INR 2.0 to 3.0 Mechanical prosthetic valves INR 2.5 to 3.5 Prevention of recurrent MD INR 2.5 to 3.5 us Phillip lCark MD LAB BLOOD ORDERABLES Final R esult Performing Organization Address City/[facility]/ZIP Co de Phone Number [facility] [address] [place] [address] * (ABNORMAL) Magnesium (06/16/2025 12:36 AM EDT) Magnesium, Plasma 2.5(H) 1.9 - 2.4 mg/dL 06/16/2025 1:12 AM EDT [facility] Blood Arterial blood specimen / Unknown Venipuncture / Unknown 06/16/2025 12:36 AM EDT 06/16/2025 12:48 AM EDT us Phillip Clark MD LAB BLOOD ORDERABLES [facility] Performing Organization Address City/[facility]/ZIP Co de Phone Number [facility] [address] [place] [address] * (ABNORMAL) CBC (06/16/2025 12:36 AM EDT) WBC Count 13.67(H) 3.70 - 10.30 10*3/uL LAB HEMATOLOGY METHOD 06/16/2025 1:01 AM EDT [facility] RBC Count 4.36(L) 4.60 - 6.10 10*6/uL LAB HEMATOLOGY METHOD 06/16/2025 1:01 AM EDT [facility] HGB 12.3(L) 13.7 - 17.5 g/dL LAB HEMATOLOGY METHOD 06/16/2025 1:01 AM EDT [facility] HCT 37.1(L) 40.0 - 51.0 % LAB HEMATOLOGY METHOD 06/16/2025 1:01 AM EDT [facility] Platelet Count 106(L) 155 - 369 10*3/uL LAB HEMATOLOGY METHOD 06/16/2025 1:01 AM EDT [facility] MCV 85 79 - 98 fL LAB HEMATOLOGY METHOD 06/16/2025 1:01 AM EDT [facility] MCH 28.2 26.0 - 32.0 pg LAB HEMATOLOGY METHOD 06/16/2025 1:01 AM EDT [facility] MCHC 33.2 30.7 - 35.5 g/dL LAB HEMATOLOGY METHOD 06/16/2025 1:01 AM EDT [facility] RDW 15.4(H) 11.5 - 14.5 % LAB HEMATOLOGY METHOD 06/16/2025 1:01 AM EDT [facility] MPV 10.8 8.8 - 12.5 fL LAB HEMATOLOGY METHOD 06/16/2025 1:01 AM EDT [facility] nRBC 0.0 <=0.0 per 100 WBCs LAB HEMATOLOGY METHOD 06/16/2025 1:01 AM EDT [facility] Blood Arterial blood specimen / Unknown Venipuncture / Unknown 06/16/2025 12:36 AM EDT 06/16/2025 12:48 AM EDT us Phillip Clark MD LAB BLOOD ORDERABLES Final R esult [facility] [address] [place] [address] * (ABNORMAL) Blood gas, arterial (06/16/2025 12:36 AM EDT) pH, Arterial 7.43(H) 7.31 - 7.42 LAB HEMATOLOGY METHOD 06/16/2025 12:58 AM EDT [facility] pCO2, Arterial 41 32 - 45 mmHg LAB HEMATOLOGY METHOD 06/16/2025 12:58 AM EDT [facility] pO2, Arterial 65(L) >80 mmHg LAB HEMATOLOGY METHOD 06/16/2025 12:58 AM EDT [facility] SO2, Measured, Arterial 94 94 - 98 % LAB HEMATOLOGY METHOD 06/16/2025 12:58 AM EDT [facility] Base Excess, Arterial 2.5 -2.0 - 3.0 mmol/L LAB HEMATOLOGY METHOD 06/16/2025 12:58 AM EDT [facility] Bicarbonate, Calculated, Arterial 27(H) 22 - 26 mmol/L LAB HEMATOLOGY METHOD 06/16/2025 12:58 AM EDT [facility] Hematocrit, Whole Blood 37.9(L) 40.0 - 51.0 % LAB HEMATOLOGY METHOD 06/16/2025 12:58 AM EDT [facility] Sodium, Whole Blood 133(L) 136 - 145 mmol/L LAB HEMATOLOGY METHOD 06/16/2025 12:58 AM EDT [facility] Potassium, Whole Blood 3.4(L) 3.6 - 4.9 mmol/L LAB HEMATOLOGY METHOD 06/16/2025 12:58 AM EDT [facility] Chloride, Whole Blood 100 97 - 107 mmol/L LAB HEMATOLOGY METHOD 06/16/2025 12:58 AM EDT [facility] Glucose, Whole Blood 124(H) 74 - 99 mg/dL LAB HEMATOLOGY METHOD 06/16/2025 12:58 AM EDT [facility] Ionized Calcium, Whole Blood 4.3(L) 4.6 - 5.1 mg/dL LAB HEMATOLOGY METHOD 06/16/2025 12:58 AM EDT [facility] Lactate, Arterial, Whole Blood 1.0 0.5 - 1.6 mmol/L LAB HEMATOLOGY METHOD 06/16/2025 12:58 AM EDT [facility] Blood Arterial blood specimen / Unknown Arterial Puncture / Unknown 06/16/2025 12:36 AM EDT 06/16/2025 12:55 AM EDT us Phillip Clark MD LAB BLOOD ORDERABLES Final R esult [facility] [address] [place] [address] * (ABNORMAL) POCT glucose meter (06/15/2025 8:00 PM EDT) Pathologist [facility] POCT Glucose 120(H) 74 - 99 mg/dL [...] Comment 06/15/2025 8:01 PM EDT [facility] Fancy Wire Drawer ID Svetlana Reilly 8:01 PM EDT [facility] Device ID [id number] 06/15/2025 8:01 PM EDT [facility] Specimen Type POC Capillary 06/15/2025 8:01 PM EDT [facility] Blood Capillary blood specimen / Unknown 06/15/2025 8:00 PM EDT 06/15/2025 8:01 PM EDT Phillip Clark MD LAB POINT OF CARE TE ST DOCKED DEVICE UNSOLICITED RESULTS Final Result Performing Organization Address City/[facility] Co de Phone Number [facility] [address] [place] [address] * (ABNORMAL) POCT glucose meter (06/15/2025 5:56 PM EDT) [facility] POCT Glucose 121(H) 74 - [...] 06/15/2025 5:57 PM EDT [facility] Fancy Wire Drawer ID Bony Thomas 025 5:57 PM EDT [facility] Device ID [id number] 06/15/2025 5:57 PM EDT [facility] Specimen Type POC Arterial 06/15/2025 5:57 PM EDT [facility] Blood Arterial blood specimen / Unknown 06/15/2025 5:56 PM EDT 06/15/2025 5:57 PM EDT us Phillip Clark MD LAB POINT OF CARE TE ST DOCKED DEVICE UNSOLICITED RESULTS Final Result Performing Organization Address City/[facility] Co de Phone Number [facility] [address] [place] [address] * Magnesium (06/15/2025 4:11 PM EDT) [facility] Magnesium, Plasma 2.1 1.9 - 2.4 mg/dL 06/15/2025 6:21 PM EDT [facility] Blood Venous blood specimen / Unknown Venipuncture / Unknown 06/15/2025 4:11 PM EDT 06/15/2025 4:39 PM EDT Phillip Clark MD LAB BLOOD ORDERABLES Final R esult Performing Organization Address City/[facility]/ZIP Co de Phone Number [facility] [address] [place] [address] * Phosphorus (06/15/2025 4:11 PM EDT) Phosphorus, Plasma 2.9 2.5 - 4.5 mg/dL 06/15/2025 5:12 PM EDT [facility] Blood Venous blood specimen / Unknown Venipuncture / Unknown 06/15/2025 4:11 PM EDT 06/15/2025 4:39 PM EDT Phillip Clark MD LAB BLOOD ORDERABLES Final R esult Performing Organization Address City/[facility]/ZIP Co de Phone Number [facility] [address] [place] [address] * (ABNORMAL) Basic metabolic panel (06/15/2025 4:11 PM EDT) Glucose, Plasma 123(H) 74 - 99 mg/dL 06/15/2025 5:12 PM EDT [facility] BUN, Plasma 19 8 - 23 mg/dL 06/15/2025 5:12 PM EDT [facility] Creatinine, Plasma 0.88 0.70 - 1.20 mg/dL 06/15/2025 5:12 PM EDT [facility] BUN/Creatinine Ratio 22 06/15/2025 5:12 PM EDT [facility] Sodium, Plasma 133(L) 136 - 145 mmol/L 06/15/2025 5:12 PM EDT [facility] Potassium, Plasma 3.9 3.6 - 4.9 mmol/L 06/15/2025 5:12 PM EDT [facility] Chloride, Plasma 102 97 - 107 mmol/L 06/15/2025 5:12 PM EDT [facility] CO2, Plasma 23 22 - 29 mmol/L 06/15/2025 5:12 PM EDT [facility] Anion Gap 8 6 - 16 mmol/L 06/15/2025 5:12 PM EDT [facility] Total Calcium, Plasma 8.6(L) 8.9 - 10.2 mg/dL 06/15/2025 5:12 PM EDT [facility] eGFRcr 93.1 mL/min/1.7 3m*2 06/15/2025 5:12 PM EDT [facility] Comment:Reported eGFRcr in m L/min/1.73m2 is based the CKD-EPI 2020 equation that does not use a race coefficient. Blood Venous blood specimen / Unknown Venipuncture / Unknown 06/15/2025 4:11 PM EDT 06/15/2025 4:39 PM EDT Phillip Clark MD LAB BLOOD ORDERABLES Final R esult [facility] [address] [place] [address] * (ABNORMAL) POCT glucose meter (06/15/2025 12:14 [...] 06/15/2025 12:16 PM EDT [facility] Fancy Wire Drawer ID Bony Thomas 025 12:16 PM EDT [facility] Device ID [id number] 06/15/2025 12:16 PM EDT [facility] Specimen Type POC Arterial 06/15/2025 12:16 PM EDT [facility] Blood Arterial blood specimen / Unknown 06/15/2025 12:14 PM EDT 06/15/2025 12:16 PM EDT us Phillip Clark MD LAB POINT OF CARE TE ST DOCKED DEVICE UNSOLICITED RESULTS Final Result [facility] [address] [place] [address] * AL CRITICAL CARE, E/M 30-74 MINUTES [...] 06/15/2025 8:25 AM EDT [facility] Fancy Wire Drawer ID Bony Thomas 025 8:25 AM EDT [facility] Device ID [id number] 06/15/2025 8:25 AM EDT [facility] Specimen Type POC Arterial 06/15/2025 8:25 AM EDT [facility] Blood Arterial blood specimen / Unknown 06/15/2025 8:24 AM EDT 06/15/2025 8:25 AM EDT us Phillip Clark MD LAB POINT OF CARE TE ST DOCKED DEVICE UNSOLICITED RESULTS Final Result [facility] [address] [place] [id number] * (ABNORMAL) CBC and Differential (06/15/2025 8:18 AM EDT) WBC Count 12.56(H) 3.70 - 10.30 10*3/uL LAB HEMATOLOGY METHOD 06/15/2025 8:47 AM EDT [facility] RBC Count 4.60 4.60 - 6.10 10*6/uL LAB HEMATOLOGY METHOD 06/15/2025 8:47 AM EDT [facility] HGB 12.8(L) 13.7 - 17.5 g/dL LAB HEMATOLOGY METHOD 06/15/2025 8:47 AM EDT [facility] HCT 39.4(L) 40.0 - 51.0 % LAB HEMATOLOGY METHOD 06/15/2025 8:47 AM EDT [facility] Platelet Count 120(L) 155 - 369 10*3/uL LAB HEMATOLOGY METHOD 06/15/2025 8:47 AM EDT [facility] MCV 86 79 - 98 fL LAB HEMATOLOGY METHOD 06/15/2025 8:47 AM EDT [facility] MCH 27.8 26.0 - 32.0 pg LAB HEMATOLOGY METHOD 06/15/2025 8:47 AM EDT [facility] MCHC 32.5 30.7 - 35.5 g/dL LAB HEMATOLOGY METHOD 06/15/2025 8:47 AM EDT [facility] RDW 15.5(H) 11.5 - 14.5 % LAB HEMATOLOGY METHOD 06/15/2025 8:47 AM EDT [facility] MPV 10.6 8.8 - 12.5 fL LAB HEMATOLOGY METHOD 06/15/2025 8:47 AM EDT [facility] nRBC 0.0 <=0.0 per 100 WBCs LAB HEMATOLOGY METHOD 06/15/2025 8:47 AM EDT [facility] Differential Type Automated LAB HEMATOLOGY METHOD 06/15/2025 8:47 AM EDT [facility] Neutrophils % 84 % LAB HEMATOLOGY METHOD 06/15/2025 8:47 AM EDT [facility] Lymphocytes % 5 % LAB HEMATOLOGY METHOD 06/15/2025 8:47 AM EDT [facility] Monocytes % 10 % LAB HEMATOLOGY METHOD 06/15/2025 8:47 AM EDT [facility] Eosinophils % 0 % LAB HEMATOLOGY METHOD 06/15/2025 8:47 AM EDT [facility] Basophils % 0 % LAB HEMATOLOGY METHOD 06/15/2025 8:47 AM EDT [facility] Immature Granulocytes % 1 % LAB HEMATOLOGY METHOD 06/15/2025 8:47 AM EDT [facility] Neutrophils Absolute 10.59(H) 1.60 - 6.10 10*3/uL LAB HEMATOLOGY METHOD 06/15/2025 8:47 AM EDT [facility] Lymphocytes Absolute 0.60(L) 1.20 - 3.90 10*3/uL LAB HEMATOLOGY METHOD 06/15/2025 8:47 AM EDT [facility] Monocytes Absolute 1.29(H) 0.30 - 0.90 10*3/uL LAB HEMATOLOGY METHOD 06/15/2025 8:47 AM EDT [facility] Eosinophils Absolute 0.00 0.00 - 0.50 10*3/uL LAB HEMATOLOGY METHOD 06/15/2025 8:47 AM EDT [facility] Basophils Absolute 0.02 0.00 - 0.10 10*3/uL LAB HEMATOLOGY METHOD 06/15/2025 8:47 AM EDT [facility] Immature Granulocytes Absolute 0.06 0.00 - 0.06 10*3/uL LAB HEMATOLOGY METHOD 06/15/2025 8:47 AM EDT [facility] Blood Venous blood specimen / Unknown Venipuncture / Unknown 06/15/2025 8:18 AM EDT 06/15/2025 8:34 AM EDT [facility] [facility] - 06/15/2025 8:47 AM EDT Therapeutic decision making should be based on absolute values, rather than percentages. Phillip Clark MD LAB BLOOD ORDERABLES Final R esult Performing Organization Address [facility] [place] [address] * (ABNORMAL) Protime-INR (06/15/2025 6:40 AM EDT) Prothrombin Time 16.5(H) 12.0 - 14.3 sec LAB COAGULATION METHOD 06/15/2025 7:53 AM EDT [facility] INR 1.3(H) 0.9 - 1.1 LAB COAGULATION METHOD 06/15/2025 7:53 AM EDT [facility] Blood Arterial blood specimen / Unknown Venipuncture / Unknown 06/15/2025 6:40 AM EDT 06/15/2025 6:47 AM EDT [facility] LAB - 06/15/2025 7:53 AM EDT OPTIMAL INR RANGES FOR PATIENT ON ORAL ANTICOAGULANT THERAPY Prevention of venous thromboembolism INR 2.0 to 3.0 In patients with heart disease: Atrial fibrillation INR 2.0 to 3.0 Valvular heart disease INR 2.0 to 3.0 Tissue heart valves INR 2.0 to 3.0 Mechanical prosthetic valves INR 2.5 to 3.5 Prevention of recurrent MD INR 2.5 to 3.5 Phillip Clark MD LAB BLOOD ORDERABLES Final R esult Performing Organization Address City/State/[facility] Co de Phone Number [address] [address] * Ionized calcium, whole blood (06/15/2025 6:40 AM EDT) Ionized Calcium, Whole Blood 4.6 4.6 - 5.1 mg/dL LAB HEMATOLOGY METHOD 06/15/2025 6:50 AM EDT [facility] Blood Arterial blood specimen / Unknown Venipuncture / Unknown 06/15/2025 6:40 AM EDT 06/15/2025 6:48 AM EDT us Phillip Clark MD LAB BLOOD ORDERABLES Final R esult [facility] [address] [place] [address] * ECG Adult - POD 1 (06/15/2025 5:20 AM EDT) EKG DIAGNOSIS CLASS Abnormal MUSE ECG Ventricular Rate 71 BPM MUSE ECG Atrial Rate 71 BPM MUSE ECG AL Interval 182 ms MUSE ECG QRSD Interval 108 ms MUSE ECG QT Interval 418 ms MUSE ECG QTC Interval 454 ms MUSE ECG P Warren 51 degrees MUSE ECG R Warren -48 degrees MUSE ECG T Wave [place] -12 degrees MUSE ECG Diagnosis Normal sinus rhythm MUSE ECG Diagnosis Left anterior fascicular block MUSE ECG Diagnosis Abnormal ECG MUSE ECG Diagnosis MUSE ECG Diagnosis Confirmed by Bimal Brambila ([id number]) on 06/15/2025 11:38:57 AM MUSE ECG 06/15/2025 5:20 AM EDT 06/15/2025 11:38 AM EDT us Phillip Clark MD ECG ORDERABLES Final Result MUSE ECG * (ABNORMAL) Blood gas panel, arterial (06/15/2025 3:58 AM EDT) pH, Arterial 7.39 7.31 - 7.42 LAB HEMATOLOGY METHOD 06/15/2025 4:06 AM EDT [facility] pCO2, Arterial 39 32 - 45 mmHg LAB HEMATOLOGY METHOD 06/15/2025 4:06 AM EDT [facility] pO2, Arterial 79(L) >80 mmHg LAB HEMATOLOGY METHOD 06/15/2025 4:06 AM EDT [facility] SO2, Measured, Arterial 97 94 - 98 % LAB HEMATOLOGY METHOD 06/15/2025 4:06 AM EDT [facility] Base Excess, Arterial -1.2 -2.0 - 3.0 mmol/L LAB HEMATOLOGY METHOD 06/15/2025 4:06 AM EDT [facility] Bicarbonate, Calculated, Arterial 24 22 - 26 mmol/L LAB HEMATOLOGY METHOD 06/15/2025 4:06 AM EDT [facility] Hematocrit, Whole Blood 39.7(L) 40.0 - 51.0 % LAB HEMATOLOGY METHOD 06/15/2025 4:06 AM EDT [facility] Sodium, Whole Blood 134(L) 136 - 145 mmol/L LAB HEMATOLOGY METHOD 06/15/2025 4:06 AM EDT [facility] Potassium, Whole Blood 4.4 3.6 - 4.9 mmol/L LAB HEMATOLOGY METHOD 06/15/2025 4:06 AM EDT [facility] Chloride, Whole Blood 108(H) 97 - 107 mmol/L LAB HEMATOLOGY METHOD 06/15/2025 4:06 AM EDT [facility] Glucose, Whole Blood 132(H) 74 - 99 mg/dL LAB HEMATOLOGY METHOD 06/15/2025 4:06 AM EDT [facility] Ionized Calcium, Whole Blood 4.5(L) 4.6 - 5.1 mg/dL LAB HEMATOLOGY METHOD 06/15/2025 4:06 AM EDT [facility] Lactate, Arterial, Whole Blood 0.9 0.5 - 1.6 mmol/L LAB HEMATOLOGY METHOD 06/15/2025 4:06 AM EDT [facility] Blood Arterial blood specimen / Unknown Arterial Puncture / Unknown 06/15/2025 3:58 AM EDT 06/15/2025 4:06 AM EDT us Phillip Clark MD LAB BLOOD ORDERABLES Final R esult Performing Organization Address City/State/[facility] Co de Phone Number [facility] [address] [place] [address] * XR Chest 1 View (06/15/2025 2:53 [...] of NG tube. Right internal jugular approach [place] catheter and mediastinal drain in unchanged position. [...] LAB HEMATOLOGY METHOD 06/15/2025 8:17 AM EDT [facility] Neutrophils % 85 % LAB HEMATOLOGY METHOD 06/15/2025 8:17 AM EDT [facility] Lymphocytes % 4 % LAB HEMATOLOGY METHOD 06/15/2025 8:17 AM EDT [facility] Monocytes % 10 % LAB HEMATOLOGY METHOD 06/15/2025 8:17 AM EDT [facility] Eosinophils % 0 % LAB HEMATOLOGY METHOD 06/15/2025 8:17 AM EDT [facility] Basophils % 0 % LAB HEMATOLOGY METHOD 06/15/2025 8:17 AM EDT [facility] Immature Granulocytes % 1 % LAB HEMATOLOGY METHOD 06/15/2025 8:17 AM EDT [facility] Immature Granulocytes Absolute 0.05 0.00 - 0.06 10*3/uL LAB HEMATOLOGY METHOD 06/15/2025 8:17 AM EDT [facility] Neutrophils Absolute 9.28(H) 1.60 - 6.10 10*3/uL LAB HEMATOLOGY METHOD 06/15/2025 8:17 AM EDT [facility] Lymphocytes Absolute 0.45(L) 1.20 - 3.90 10*3/uL LAB HEMATOLOGY METHOD 06/15/2025 8:17 AM EDT [facility] Monocytes Absolute 1.14(H) 0.30 - 0.90 10*3/uL LAB HEMATOLOGY METHOD 06/15/2025 8:17 AM EDT [facility] Basophils Absolute 0.02 0.00 - 0.10 10*3/uL LAB HEMATOLOGY METHOD 06/15/2025 8:17 AM EDT [facility] Eosinophils Absolute 0.00 0.00 - 0.50 10*3/uL LAB HEMATOLOGY METHOD 06/15/2025 8:17 AM EDT [facility] Blood Venous blood specimen / Unknown Venipuncture / Unknown 06/15/2025 12:20 AM EDT 06/15/2025 12:26 AM EDT Phillip Clark MD LAB BLOOD ORDERABLES Final R esult Performing Organization Address City/[facility]/ZIP Co de Phone Number [facility] [address] [place] [address] * Phosphorus (06/15/2025 12:20 AM EDT) Phosphorus, Plasma 2.6 2.5 - 4.5 mg/dL 06/15/2025 8:33 AM EDT [facility] Blood Venous blood specimen / Unknown Venipuncture / Unknown 06/15/2025 12:20 AM EDT 06/15/2025 12:26 AM EDT Phillip Clark MD LAB BLOOD ORDERABLES Final R esult Performing Organization Address [facility] [place] [address] * (ABNORMAL) Magnesium (06/15/2025 12:20 AM EDT) Magnesium, Plasma 2.5(H) 1.9 - 2.4 mg/dL 06/15/2025 7:37 AM EDT [facility] Blood Venous blood specimen / Unknown Venipuncture / Unknown 06/15/2025 12:20 AM EDT 06/15/2025 12:26 AM EDT Phillip Clark MD LAB BLOOD ORDERABLES Final R esult Performing Organization Address City/[facility] Co de Phone Number [facility] [address] [place] [address] * (ABNORMAL) Basic metabolic panel (06/15/2025 12:20 AM EDT) Glucose, Plasma 140(H) 74 - 99 mg/dL 06/15/2025 7:37 AM EDT [facility] BUN, Plasma 17 8 - 23 mg/dL 06/15/2025 7:37 AM EDT [facility] Creatinine, Plasma 0.84 0.70 - 1.20 mg/dL 06/15/2025 7:37 AM EDT [facility] BUN/Creatinine Ratio 20 06/15/2025 7:37 AM EDT [facility] Sodium, Plasma 138 136 - 145 mmol/L 06/15/2025 7:37 AM EDT [facility] Potassium, Plasma 4.6 3.6 - 4.9 mmol/L 06/15/2025 7:37 AM EDT [facility] Chloride, Plasma 107 97 - 107 mmol/L 06/15/2025 7:37 AM EDT [facility] CO2, Plasma 18(L) 22 - 29 mmol/L 06/15/2025 7:37 AM EDT [facility] Anion Gap 13 6 - 16 mmol/L 06/15/2025 7:37 AM EDT [facility] Total Calcium, Plasma 8.0(L) 8.9 - 10.2 mg/dL 06/15/2025 7:37 AM EDT [facility] eGFRcr 94.4 mL/min/1.7 3m*2 06/15/2025 7:37 AM EDT [facility] Comment:Reported eGFRcr in m L/min/1.73m2 is based the CKD-EPI 2020 equation that does not use a race coefficient. Blood Venous blood specimen / Unknown Venipuncture / Unknown 06/15/2025 12:20 AM EDT 06/15/2025 12:26 AM EDT us Phillip Clark MD LAB BLOOD ORDERABLES Final R esult [facility] [address] [place] [address] * (ABNORMAL) CBC W/O Differential (06/15/2025 12:20 AM EDT) WBC Count 10.94(H) 3.70 - 10.30 10*3/uL LAB HEMATOLOGY METHOD 06/15/2025 8:32 AM EDT [facility] RBC Count 4.94 4.60 - 6.10 10*6/uL LAB HEMATOLOGY METHOD 06/15/2025 8:32 AM EDT [facility] HGB 13.6(L) 13.7 - 17.5 g/dL LAB HEMATOLOGY METHOD 06/15/2025 8:32 AM EDT [facility] HCT 41.0 40.0 - 51.0 % LAB HEMATOLOGY METHOD 06/15/2025 8:32 AM EDT [facility] Platelet Count 142(L) 155 - 369 10*3/uL LAB HEMATOLOGY METHOD 06/15/2025 8:32 AM EDT [facility] MCV 87 79 - 98 fL LAB HEMATOLOGY METHOD 06/15/2025 8:32 AM EDT [facility] MCH 27.5 26.0 - 32.0 pg LAB HEMATOLOGY METHOD 06/15/2025 8:32 AM EDT [facility] MCHC 31.8 30.7 - 35.5 g/dL LAB HEMATOLOGY METHOD 06/15/2025 8:32 AM EDT [facility] RDW 15.6(H) 11.5 - 14.5 % LAB HEMATOLOGY METHOD 06/15/2025 8:32 AM EDT [facility] MPV 11.1 8.8 - 12.5 fL LAB HEMATOLOGY METHOD 06/15/2025 8:32 AM EDT [facility] nRBC 0.0 <=0.0 per 100 WBCs LAB HEMATOLOGY METHOD 06/15/2025 8:32 AM EDT [facility] Blood Venous blood specimen / Unknown Venipuncture / Unknown 06/15/2025 12:20 AM EDT 06/15/2025 12:26 AM EDT us Phillip Clark MD LAB BLOOD ORDERABLES Final R esult [facility] [address] [place] [address] * Potassium, Plasma (06/15/2025 12:20 AM EDT) [facility] Potassium, Plasma 4.5 3.6 - 4.9 mmol/L 06/15/2025 12:51 AM EDT [facility] Blood Venous blood specimen / Unknown Venipuncture / Unknown 06/15/2025 12:20 AM EDT 06/15/2025 12:26 AM EDT Phillip Clark MD LAB BLOOD ORDERABLES Final R esult Performing Organization Address City/[facility]/ZIP Co de Phone Number [facility] [address] [place] [address] * Hematocrit (06/15/2025 12:20 AM EDT) Pathologist [facility] HCT 41.0 40.0 - 51.0 % LAB HEMATOLOGY METHOD 06/15/2025 12:36 AM EDT [facility] Blood Venous blood specimen / Unknown Venipuncture / Unknown 06/15/2025 12:20 AM EDT 06/15/2025 12:26 AM EDT Phillip Clark MD LAB BLOOD ORDERABLES Final R esult Performing Organization Address [facility] [place] [address] * (ABNORMAL) Hemoglobin (06/15/2025 12:20 AM EDT) [facility] HGB 13.6(L) 13.7 - 17.5 g/dL LAB HEMATOLOGY METHOD 06/15/2025 12:36 AM EDT [facility] Blood Venous blood specimen / Unknown Venipuncture / Unknown 06/15/2025 12:20 AM EDT 06/15/2025 12:26 AM EDT Phillip Clark MD LAB BLOOD ORDERABLES Final R esult Performing Organization Address City/[facility] Co de Phone Number [facility] [address] [place] [address] * (ABNORMAL) Blood gas, arterial (06/15/2025 12:20 AM EDT) pH, Arterial 7.37 7.31 - 7.42 LAB HEMATOLOGY METHOD 06/15/2025 12:37 AM EDT [facility] pCO2, Arterial 40 32 - 45 mmHg LAB HEMATOLOGY METHOD 06/15/2025 12:37 AM EDT [facility] pO2, Arterial 65(L) >80 mmHg LAB HEMATOLOGY METHOD 06/15/2025 12:37 AM EDT [facility] SO2, Measured, Arterial 94 94 - 98 % LAB HEMATOLOGY METHOD 06/15/2025 12:37 AM EDT [facility] Base Excess, Arterial -1.8 -2.0 - 3.0 mmol/L LAB HEMATOLOGY METHOD 06/15/2025 12:37 AM EDT [facility] Bicarbonate, Calculated, Arterial 23 22 - 26 mmol/L LAB HEMATOLOGY METHOD 06/15/2025 12:37 AM EDT [facility] Hematocrit, Whole Blood 41.1 40.0 - 51.0 % LAB HEMATOLOGY METHOD 06/15/2025 12:37 AM EDT [facility] Sodium, Whole Blood 137 136 - 145 mmol/L LAB HEMATOLOGY METHOD 06/15/2025 12:37 AM EDT [facility] Potassium, Whole Blood 4.2 3.6 - 4.9 mmol/L LAB HEMATOLOGY METHOD 06/15/2025 12:37 AM EDT [facility] Chloride, Whole Blood 110(H) 97 - 107 mmol/L LAB HEMATOLOGY METHOD 06/15/2025 12:37 AM EDT [facility] Glucose, Whole Blood 140(H) 74 - 99 mg/dL LAB HEMATOLOGY METHOD 06/15/2025 12:37 AM EDT [facility] Ionized Calcium, Whole Blood 4.5(L) 4.6 - 5.1 mg/dL LAB HEMATOLOGY METHOD 06/15/2025 12:37 AM EDT [facility] Lactate, Arterial, Whole Blood 1.8(H) 0.5 - 1.6 mmol/L LAB HEMATOLOGY METHOD 06/15/2025 12:37 AM EDT [facility] Blood Arterial blood specimen / Unknown Arterial Puncture / Unknown 06/15/2025 12:20 AM EDT 06/15/2025 12:34 AM EDT us Phillip Clark MD LAB BLOOD ORDERABLES Final R esult [facility] [address] [place] [address] * (ABNORMAL) Blood gas, arterial (06/14/2025 8:04 PM EDT) pH, Arterial 7.35 7.31 - 7.42 LAB HEMATOLOGY METHOD 06/14/2025 8:19 PM EDT [facility] pCO2, Arterial 39 32 - 45 mmHg LAB HEMATOLOGY METHOD 06/14/2025 8:19 PM EDT [facility] pO2, Arterial 88 >80 mmHg LAB HEMATOLOGY METHOD 06/14/2025 8:19 PM EDT [facility] SO2, Measured, Arterial 98 94 - 98 % LAB HEMATOLOGY METHOD 06/14/2025 8:19 PM EDT [facility] Base Excess, Arterial -3.7(L) -2.0 - 3.0 mmol/L LAB HEMATOLOGY METHOD 06/14/2025 8:19 PM EDT [facility] Bicarbonate, Calculated, Arterial 22 22 - 26 mmol/L LAB HEMATOLOGY METHOD 06/14/2025 8:19 PM EDT [facility] Hematocrit, Whole Blood 44.7 40.0 - 51.0 % LAB HEMATOLOGY METHOD 06/14/2025 8:19 PM EDT [facility] Sodium, Whole Blood 138 136 - 145 mmol/L LAB HEMATOLOGY METHOD 06/14/2025 8:19 PM EDT [facility] Potassium, Whole Blood 4.5 3.6 - 4.9 mmol/L LAB HEMATOLOGY METHOD 06/14/2025 8:19 PM EDT [facility] Chloride, Whole Blood 109(H) 97 - 107 mmol/L LAB HEMATOLOGY METHOD 06/14/2025 8:19 PM EDT [facility] Glucose, Whole Blood 185(H) 74 - 99 mg/dL LAB HEMATOLOGY METHOD 06/14/2025 8:19 PM EDT [facility] Ionized Calcium, Whole Blood 4.5(L) 4.6 - 5.1 mg/dL LAB HEMATOLOGY METHOD 06/14/2025 8:19 PM EDT [facility] Lactate, Arterial, Whole Blood 3.0(H) 0.5 - 1.6 mmol/L LAB HEMATOLOGY METHOD 06/14/2025 8:19 PM EDT [facility] Blood Arterial blood specimen / Unknown Arterial Puncture / Unknown 06/14/2025 8:04 PM EDT 06/14/2025 8:14 PM EDT Phillip Clark MD LAB BLOOD ORDERABLES Final R esult Performing Organization Address City/[facility]/ZIP Co de Phone Number [facility] [address] [place] [address] * Potassium (06/14/2025 8:03 PM EDT) Potassium, Plasma 4.9 3.6 - 4.9 mmol/L 06/14/2025 8:33 PM EDT [facility] Blood Arterial blood specimen / Unknown Venipuncture / Unknown 06/14/2025 8:03 PM EDT 06/14/2025 8:11 PM EDT Phillip Clark MD LAB BLOOD ORDERABLES Final R esult Performing Organization Address [facility] Co de Phone Number [facility] [address] [place] [address] * (ABNORMAL) Magnesium (06/14/2025 8:03 PM EDT) Magnesium, Plasma 2.7(H) 1.9 - 2.4 mg/dL 06/14/2025 8:40 PM EDT [facility] Blood Arterial blood specimen / Unknown Venipuncture / Unknown 06/14/2025 8:03 PM EDT 06/14/2025 8:11 PM EDT Phillip Clark MD LAB BLOOD ORDERABLES Final R esult Performing Organization Address City/[facility]/ZIP Co de Phone Number [facility] [address] [place] [address] * (ABNORMAL) CBC (06/14/2025 8:03 PM EDT) WBC Count 13.98(H) 3.70 - 10.30 10*3/uL LAB HEMATOLOGY METHOD 06/14/2025 8:20 PM EDT [facility] RBC Count 5.14 4.60 - 6.10 10*6/uL LAB HEMATOLOGY METHOD 06/14/2025 8:20 PM EDT [facility] HGB 14.5 13.7 - 17.5 g/dL LAB HEMATOLOGY METHOD 06/14/2025 8:20 PM EDT [facility] HCT 43.9 40.0 - 51.0 % LAB HEMATOLOGY METHOD 06/14/2025 8:20 PM EDT [facility] Platelet Count 158 155 - 369 10*3/uL LAB HEMATOLOGY METHOD 06/14/2025 8:20 PM EDT [facility] MCV 85 79 - 98 fL LAB HEMATOLOGY METHOD 06/14/2025 8:20 PM EDT [facility] MCH 28.2 26.0 - 32.0 pg LAB HEMATOLOGY METHOD 06/14/2025 8:20 PM EDT [facility] MCHC 33.0 30.7 - 35.5 g/dL LAB HEMATOLOGY METHOD 06/14/2025 8:20 PM EDT [facility] RDW 14.9(H) 11.5 - 14.5 % LAB HEMATOLOGY METHOD 06/14/2025 8:20 PM EDT [facility] MPV 10.8 8.8 - 12.5 fL LAB HEMATOLOGY METHOD 06/14/2025 8:20 PM EDT [facility] nRBC 0.0 <=0.0 per 100 WBCs LAB HEMATOLOGY METHOD 06/14/2025 8:20 PM EDT [facility] Blood Arterial blood specimen / Unknown Venipuncture / Unknown 06/14/2025 8:03 PM EDT 06/14/2025 8:11 PM EDT us Phillip Clark MD LAB BLOOD ORDERABLES Final R esult [facility] [address] [place] [address] * (ABNORMAL) Basic metabolic panel (06/14/2025 8:03 PM EDT) Glucose, Plasma 194(H) 74 - 99 mg/dL 06/14/2025 8:40 PM EDT [facility] BUN, Plasma 16 8 - 23 mg/dL 06/14/2025 8:40 PM EDT [facility] Creatinine, Plasma 0.85 0.70 - 1.20 mg/dL 06/14/2025 8:40 PM EDT [facility] BUN/Creatinine Ratio 19 06/14/2025 8:40 PM EDT [facility] Sodium, Plasma 139 136 - 145 mmol/L 06/14/2025 8:40 PM EDT [facility] Potassium, Plasma 5.0(H) 3.6 - 4.9 mmol/L 06/14/2025 8:40 PM EDT [facility] Chloride, Plasma 109(H) 97 - 107 mmol/L 06/14/2025 8:40 PM EDT [facility] CO2, Plasma 20(L) 22 - 29 mmol/L 06/14/2025 8:40 PM EDT [facility] Anion Gap 10 6 - 16 mmol/L 06/14/2025 8:40 PM EDT [facility] Total Calcium, Plasma 8.2(L) 8.9 - 10.2 mg/dL 06/14/2025 8:40 PM EDT [facility] eGFRcr 94.1 mL/min/1.7 3m*2 06/14/2025 8:40 PM EDT [facility] Comment:Reported eGFRcr in m L/min/1.73m2 is based the CKD-EPI 2020 equation that does not use a race coefficient. Blood Arterial blood specimen / Unknown Venipuncture / Unknown 06/14/2025 8:03 PM EDT 06/14/2025 8:11 PM EDT us Phillip Clark MD LAB BLOOD ORDERABLES Final R esult [facility] [address] [place] [address] * (ABNORMAL) Blood gas panel, arterial (06/14/2025 6:47 PM EDT) pH, Arterial 7.30(L) 7.31 - 7.42 LAB HEMATOLOGY METHOD 06/14/2025 6:57 PM EDT [facility] pCO2, Arterial 41 32 - 45 mmHg LAB HEMATOLOGY METHOD 06/14/2025 6:57 PM EDT [facility] pO2, Arterial 70(L) >80 mmHg LAB HEMATOLOGY METHOD 06/14/2025 6:57 PM EDT [facility] SO2, Measured, Arterial 94 94 - 98 % LAB HEMATOLOGY METHOD 06/14/2025 6:57 PM EDT [facility] Base Excess, Arterial -5.6(L) -2.0 - 3.0 mmol/L LAB HEMATOLOGY METHOD 06/14/2025 6:57 PM EDT [facility] Bicarbonate, Calculated, Arterial 21(L) 22 - 26 mmol/L LAB HEMATOLOGY METHOD 06/14/2025 6:57 PM EDT [facility] Hematocrit, Whole Blood 45.5 40.0 - 51.0 % LAB HEMATOLOGY METHOD 06/14/2025 6:57 PM EDT [facility] Sodium, Whole Blood 138 136 - 145 mmol/L LAB HEMATOLOGY METHOD 06/14/2025 6:57 PM EDT [facility] Potassium, Whole Blood 4.4 3.6 - 4.9 mmol/L LAB HEMATOLOGY METHOD 06/14/2025 6:57 PM EDT [facility] Chloride, Whole Blood 109(H) 97 - 107 mmol/L LAB HEMATOLOGY METHOD 06/14/2025 6:57 PM EDT [facility] Glucose, Whole Blood 209(H) 74 - 99 mg/dL LAB HEMATOLOGY METHOD 06/14/2025 6:57 PM EDT [facility] Ionized Calcium, Whole Blood 4.6 4.6 - 5.1 mg/dL LAB HEMATOLOGY METHOD 06/14/2025 6:57 PM EDT [facility] Lactate, Arterial, Whole Blood 3.9(H) 0.5 - 1.6 mmol/L LAB HEMATOLOGY METHOD 06/14/2025 6:57 PM EDT [facility] Blood Arterial blood specimen / Unknown Arterial Puncture / Unknown 06/14/2025 6:47 PM EDT 06/14/2025 6:56 PM EDT us Phillip Clark MD LAB BLOOD ORDERABLES Final R esult [facility] [address] [place] [address] * AL CRITICAL CARE, E/M 30-74 MINUTES [...] with the findings and plan as documented. Belle Smith MD IN CLINIC/BEDSIDE ORDERABLES Final Result * (ABNORMAL) Blood gas, arterial (06/14/2025 3:57 PM EDT) pH, Arterial 7.29(L) 7.31 - 7.42 LAB HEMATOLOGY METHOD 06/14/2025 4:12 PM EDT [facility] pCO2, Arterial 43 32 - 45 mmHg LAB HEMATOLOGY METHOD 06/14/2025 4:12 PM EDT [facility] pO2, Arterial 126 >80 mmHg LAB HEMATOLOGY METHOD 06/14/2025 4:12 PM EDT [facility] SO2, Measured, Arterial 99(H) 94 - 98 % LAB HEMATOLOGY METHOD 06/14/2025 4:12 PM EDT [facility] Base Excess, Arterial -5.8(L) -2.0 - 3.0 mmol/L LAB HEMATOLOGY METHOD 06/14/2025 4:12 PM EDT [facility] Bicarbonate, Calculated, Arterial 21(L) 22 - 26 mmol/L LAB HEMATOLOGY METHOD 06/14/2025 4:12 PM EDT [facility] Hematocrit, Whole Blood 43.9 40.0 - 51.0 % LAB HEMATOLOGY METHOD 06/14/2025 4:12 PM EDT [facility] Sodium, Whole Blood 139 136 - 145 mmol/L LAB HEMATOLOGY METHOD 06/14/2025 4:12 PM EDT [facility] Potassium, Whole Blood 3.8 3.6 - 4.9 mmol/L LAB HEMATOLOGY METHOD 06/14/2025 4:12 PM EDT [facility] Chloride, Whole Blood 109(H) 97 - 107 mmol/L LAB HEMATOLOGY METHOD 06/14/2025 4:12 PM EDT [facility] Glucose, Whole Blood 179(H) 74 - 99 mg/dL LAB HEMATOLOGY METHOD 06/14/2025 4:12 PM EDT [facility] Ionized Calcium, Whole Blood 4.6 4.6 - 5.1 mg/dL LAB HEMATOLOGY METHOD 06/14/2025 4:12 PM EDT [facility] Lactate, Arterial, Whole Blood 4.3(H) 0.5 - 1.6 mmol/L LAB HEMATOLOGY METHOD 06/14/2025 4:12 PM EDT [facility] Blood Arterial blood specimen / Unknown Arterial Puncture / Unknown 06/14/2025 3:57 PM EDT 06/14/2025 4:11 PM EDT us Phillip Clark MD LAB BLOOD ORDERABLES Final R esult [facility] [address] [place] [address] * (ABNORMAL) Blood gas panel with oximetry, mixed venous (06/14/2025 3:00 PM EDT) pH, Mixed Venous 7.28(L) 7.32 - 7.43 LAB HEMATOLOGY METHOD 06/14/2025 3:24 PM EDT [facility] pCO2, Mixed Venous 47 40 - 55 mmHg LAB HEMATOLOGY METHOD 06/14/2025 3:24 PM EDT [facility] pO2, Mixed Venous 54(H) 25 - 40 mmHg LAB HEMATOLOGY METHOD 06/14/2025 3:24 PM EDT [facility] SO2, Measured, Mixed Venous 84(H) 65 - 80 % LAB HEMATOLOGY METHOD 06/14/2025 3:24 PM EDT [facility] Bicarbonate, Calculated, Mixed Venous 22 22 - 26 mmol/L LAB HEMATOLOGY METHOD 06/14/2025 3:24 PM EDT [facility] Base Excess, Mixed Venous -4.7(L) -2.0 - 3.0 mmol/L LAB HEMATOLOGY METHOD 06/14/2025 3:24 PM EDT [facility] Hematocrit, Whole Blood 43.0 40.0 - 51.0 % LAB HEMATOLOGY METHOD 06/14/2025 3:24 PM EDT [facility] Sodium, Whole Blood 139 136 - 145 mmol/L LAB HEMATOLOGY METHOD 06/14/2025 3:24 PM [facility] Potassium, Whole Blood 3.7 3.6 - 4.9 mmol/L LAB HEMATOLOGY METHOD 06/14/2025 3:24 PM [facility] Chloride, Whole Blood 110(H) 97 - 107 mmol/L LAB HEMATOLOGY METHOD 06/14/2025 3:24 PM [facility] Ionized Calcium, Whole Blood 4.6 4.6 - 5.1 mg/dL LAB HEMATOLOGY METHOD 06/14/2025 3:24 PM [facility] Glucose, Whole Blood 149(H) 74 - 99 mg/dL LAB HEMATOLOGY METHOD 06/14/2025 3:24 PM [facility] Oxyhemoglobin, Mixed Venous, Whole Blood 81.9(H) 40.0 - 70.0 % LAB HEMATOLOGY METHOD 06/14/2025 3:24 PM [facility] Hemoglobin Reduced, Mixed Venous, Whole Blood 16.1 % LAB HEMATOLOGY METHOD 06/14/2025 3:24 PM [facility] Total Hemoglobin, Mixed Venous, Whole Blood 14.0 13.7 - 17.5 g/dL LAB HEMATOLOGY METHOD 06/14/2025 3:24 PM [facility] Blood Mixed venous blood specimen / Unknown Venipuncture / Unknown 06/14/2025 3:00 PM EDT 06/14/2025 3:23 PM EDT us Phillip Clark MD LAB BLOOD ORDERABLES Final R esult [facility] [address] [place] [address] * XR Abdomen 1 View (06/14/2025 2:57 [...] Detected Not Detected 06/15/2025 12:46 PM [facility] Swab (Axilla and Groin) Non-blood Collection / Unknown 06/14/2025 2:37 PM EDT 06/14/2025 3:10 PM [facility] - 06/15/2025 12:46 PM EDT This PCR assay was developed and its performance characteristics determined by [facility] as appropriate for clinical purposes. This assay has not been cleared or approved by the FDA, but is performed in a CLIA regulated laboratory that is qualified to perform high-complexity testing. us Phillip Clark MD LAB MICROBIOLOGY - GENERAL O RDERABLES Final Result [facility] [address] [place] [address] * Multi Drug Resistance Test (06/14/2025 2:37 PM EDT) Culture No growth at day 1 06/15/2025 4:03 PM [facility]T [facility] Swab (Nares and Smita Rectal) Non-blood Collection / Unknown 06/14/2025 2:37 PM EDT 06/14/2025 3:10 PM EDT [facility] - 06/15/2025 4:03 PM EDT [...] MICROBIOLOGY - GENERAL O RDERABLES Final Result [facility] [address] [place] [address] * (ABNORMAL) Blood gas, arterial (06/14/2025 2:37 PM EDT) pH, Arterial 7.31 7.31 - 7.42 LAB HEMATOLOGY METHOD 06/14/2025 2:58 PM EDT [facility] pCO2, Arterial 42 32 - 45 mmHg LAB HEMATOLOGY METHOD 06/14/2025 2:58 PM EDT [facility] pO2, Arterial 154 >80 mmHg LAB HEMATOLOGY METHOD 06/14/2025 2:58 PM EDT [facility] SO2, Measured, Arterial 100(H) 94 - 98 % LAB HEMATOLOGY METHOD 06/14/2025 2:58 PM EDT [facility] Base Excess, Arterial -5.1(L) -2.0 - 3.0 mmol/L LAB HEMATOLOGY METHOD 06/14/2025 2:58 PM EDT [facility] Bicarbonate, Calculated, Arterial 21(L) 22 - 26 mmol/L LAB HEMATOLOGY METHOD 06/14/2025 2:58 PM EDT [facility] Hematocrit, Whole Blood 43.5 40.0 - 51.0 % LAB HEMATOLOGY METHOD 06/14/2025 2:58 PM EDT [facility] Sodium, Whole Blood 139 136 - 145 mmol/L LAB HEMATOLOGY METHOD 06/14/2025 2:58 PM EDT [facility] Potassium, Whole Blood 3.6 3.6 - 4.9 mmol/L LAB HEMATOLOGY METHOD 06/14/2025 2:58 PM EDT [facility] Chloride, Whole Blood 110(H) 97 - 107 mmol/L LAB HEMATOLOGY METHOD 06/14/2025 2:58 PM EDT [facility] Glucose, Whole Blood 131(H) 74 - 99 mg/dL LAB HEMATOLOGY METHOD 06/14/2025 2:58 PM EDT [facility] Ionized Calcium, Whole Blood 4.7 4.6 - 5.1 mg/dL LAB HEMATOLOGY METHOD 06/14/2025 2:58 PM EDT [facility] Lactate, Arterial, Whole Blood 5.0(H) 0.5 - 1.6 mmol/L LAB HEMATOLOGY METHOD 06/14/2025 2:58 PM EDT [facility] Blood Arterial blood specimen / Unknown Arterial Puncture / Unknown 06/14/2025 2:37 PM EDT 06/14/2025 2:57 PM EDT Phillip Clark MD LAB BLOOD ORDERABLES Final R esult [facility] [address] [place] [address] * ECG Adult - Upon Admissoin to [facility]ICU (06/14/2025 2:36 PM EDT) EKG DIAGNOSIS CLASS Abnormal MUSE ECG Ventricular Rate 61 BPM MUSE ECG Atrial Rate 61 BPM MUSE ECG AL Interval 176 ms MUSE ECG QRSD Interval 154 ms MUSE ECG QT Interval 520 ms MUSE ECG QTC Interval 523 ms MUSE ECG P Warren 58 degrees MUSE ECG R Warren 113 degrees MUSE ECG T Wave Warren -67 degrees MUSE ECG Diagnosis Sinus rhythm [...] ECG ORDERABLES Final Result Performing Organization Address City/[facility]/ZIP Co de Phone Number MUSE ECG * Potassium, Plasma (06/14/2025 2:36 PM EDT) Potassium, Plasma 3.8 3.6 - 4.9 mmol/L 06/14/2025 4:13 PM EDT [facility] Comment:Hemolyzed, result ma y be falsely increased. Blood Venous blood specimen / Unknown Venipuncture / Unknown 06/14/2025 2:36 PM EDT 06/14/2025 3:20 PM EDT us Phillip Clark MD LAB BLOOD ORDERABLES Final R esult Performing Organization Address City/[facility]/ZIP Co de Phone Number [facility] [address] [place] [address] * Hematocrit (06/14/2025 2:36 PM EDT) HCT 42.6 40.0 - 51.0 % LAB HEMATOLOGY METHOD 06/14/2025 4:38 PM EDT [facility] Blood Venous blood specimen / Unknown Venipuncture / Unknown 06/14/2025 2:36 PM EDT 06/14/2025 4:17 PM EDT us Phillip Clark MD LAB BLOOD ORDERABLES Final R esult Performing Organization Address [facility]/ZIP Co de Phone Number [facility] [address] [place] [address] * Hemoglobin (06/14/2025 2:36 PM EDT) HGB 13.9 13.7 - 17.5 g/dL LAB HEMATOLOGY METHOD 06/14/2025 4:38 PM EDT [facility] Blood Venous blood specimen / Unknown Venipuncture / Unknown 06/14/2025 2:36 PM EDT 06/14/2025 4:17 PM EDT us Phillip Clark MD LAB BLOOD ORDERABLES Final R esult Performing Organization Address City/[facility]/ZIP Co de Phone Number [facility] [address] [place] [address] * APTT (06/14/2025 2:36 PM EDT) aPTT 29 25 - 35 sec LAB COAGULATION METHOD 06/14/2025 4:11 PM EDT [facility] Blood Venous blood specimen / Unknown Venipuncture / Unknown 06/14/2025 2:36 PM EDT 06/14/2025 3:18 PM EDT Phillip Clark MD LAB BLOOD ORDERABLES Final R esult [facility] [address] [place] [address] * (ABNORMAL) Protime-INR (06/14/2025 2:36 PM EDT) Prothrombin Time 16.6(H) 12.0 - 14.3 sec LAB COAGULATION METHOD 06/14/2025 4:11 PM EDT [facility] INR 1.3(H) 0.9 - 1.1 LAB COAGULATION METHOD 06/14/2025 4:11 PM EDT [facility] Blood Venous blood specimen / Unknown Venipuncture / Unknown 06/14/2025 2:36 PM EDT 06/14/2025 3:18 PM EDT Narrative [facility] - 06/14/2025 4:11 PM EDT OPTIMAL INR RANGES FOR PATIENT ON ORAL ANTICOAGULANT THERAPY Prevention of venous thromboembolism INR 2.0 to 3.0 In patients with heart disease: Atrial fibrillation INR 2.0 to 3.0 Valvular heart disease INR 2.0 to 3.0 Tissue heart valves INR 2.0 to 3.0 Mechanical prosthetic valves INR 2.5 to 3.5 Prevention of recurrent MD INR 2.5 to 3.5 Phillip Clark MD LAB BLOOD ORDERABLES Final R esult [facility] [address] [place] [address] * (ABNORMAL) Phosphorus (06/14/2025 2:36 PM EDT) Phosphorus, Plasma 2.3(L) 2.5 - 4.5 mg/dL 06/14/2025 4:13 PM EDT [facility] Blood Venous blood specimen / Unknown Venipuncture / Unknown 06/14/2025 2:36 PM EDT 06/14/2025 3:20 PM EDT Phillip Clark MD LAB BLOOD ORDERABLES Final R esult Performing Organization Address City/[facility]/ZIP Co de Phone Number [facility] [address] [place] [address] * (ABNORMAL) Magnesium (06/14/2025 2:36 PM EDT) Pathologist [facility] [place] Magnesium, Plasma 3.2(H) 1.9 - 2.4 mg/dL 06/14/2025 6:55 PM EDT [facility] Blood Venous blood specimen / Unknown Venipuncture / Unknown 06/14/2025 2:36 PM EDT 06/14/2025 3:20 PM EDT Phillip Clark MD LAB BLOOD ORDERABLES Final R esult Performing Organization Address [facility]/ZIP Co de Phone Number [facility] [address] [place] [address] * (ABNORMAL) Basic metabolic panel (06/14/2025 2:36 PM EDT) Pathologist [facility] [place] Glucose, Plasma 134(H) 74 - 99 mg/dL 06/14/2025 4:13 PM EDT [facility] BUN, Plasma 14 8 - 23 mg/dL 06/14/2025 4:13 PM EDT [facility] Creatinine, Plasma 0.83 0.70 - 1.20 mg/dL 06/14/2025 4:13 PM EDT [facility] BUN/Creatinine Ratio 17 06/14/2025 4:13 PM EDT [facility] Sodium, Plasma 140 136 - 145 mmol/L 06/14/2025 4:13 PM EDT [facility] Potassium, Plasma 3.8 3.6 - 4.9 mmol/L 06/14/2025 4:13 PM EDT [facility] Comment:Hemolyzed, result ma y be falsely increased. Chloride, Plasma 108(H) 97 - 107 mmol/L 06/14/2025 4:13 PM EDT [facility] CO2, Plasma 19(L) 22 - 29 mmol/L 06/14/2025 4:13 PM EDT [facility] Anion Gap 13 6 - 16 mmol/L 06/14/2025 4:13 PM EDT [facility] Total Calcium, Plasma 8.3(L) 8.9 - 10.2 mg/dL 06/14/2025 4:13 PM EDT [facility] eGFRcr 94.7 mL/min/1.7 3m*2 06/14/2025 4:13 PM EDT [facility] Comment:Reported eGFRcr in m L/min/1.73m2 is based the CKD-EPI 2020 equation that does not use a race coefficient. Blood Venous blood specimen / Unknown Venipuncture / Unknown 06/14/2025 2:36 PM EDT 06/14/2025 3:20 PM EDT us Phillip Clark MD LAB BLOOD ORDERABLES Final R esult [facility] [address] [place] [address] * (ABNORMAL) CBC (06/14/2025 2:36 PM EDT) WBC Count 15.83(H) 3.70 - 10.30 10*3/uL LAB HEMATOLOGY METHOD 06/14/2025 4:38 PM EDT [facility] RBC Count 4.98 4.60 - 6.10 10*6/uL LAB HEMATOLOGY METHOD 06/14/2025 4:38 PM EDT [facility] HGB 13.9 13.7 - 17.5 g/dL LAB HEMATOLOGY METHOD 06/14/2025 4:38 PM EDT [facility] HCT 42.6 40.0 - 51.0 % LAB HEMATOLOGY METHOD 06/14/2025 4:38 PM EDT [facility] Platelet Count 160 155 - 369 10*3/uL LAB HEMATOLOGY METHOD 06/14/2025 4:38 PM EDT [facility] MCV 86 79 - 98 fL LAB HEMATOLOGY METHOD 06/14/2025 4:38 PM EDT [facility] MCH 27.9 26.0 - 32.0 pg LAB HEMATOLOGY METHOD 06/14/2025 4:38 PM EDT [facility] MCHC 32.6 30.7 - 35.5 g/dL LAB HEMATOLOGY METHOD 06/14/2025 4:38 PM EDT [facility] RDW 15.2(H) 11.5 - 14.5 % LAB HEMATOLOGY METHOD 06/14/2025 4:38 PM EDT [facility] MPV 10.3 8.8 - 12.5 fL LAB HEMATOLOGY METHOD 06/14/2025 4:38 PM EDT [facility] nRBC 0.0 <=0.0 per 100 WBCs LAB HEMATOLOGY METHOD 06/14/2025 4:38 PM EDT [facility] Blood Venous blood specimen / Unknown Venipuncture / Unknown 06/14/2025 2:36 PM EDT 06/14/2025 4:17 PM EDT us Phillip Clark MD LAB BLOOD ORDERABLES Final R esult [facility] [address] [place] [address] * (ABNORMAL) POCT arterial blood gas gem (06/14/2025 2:00 PM EDT) pH, Arterial 7.35 7.31 - 7.42 06/14/2025 2:02 PM EDT [facility] pCO2, Arterial 38 32 - 45 mm Hg 06/14/2025 2:02 PM EDT [facility] pO2, Arterial 376 >80 mm Hg 06/14/2025 2:02 PM EDT [facility] SO2, Arterial 100(H) 94 - 98 % 06/14/2025 2:02 PM EDT [facility] Base Excess, Arterial -4.2(L) -2 - 3 mmol/L 06/14/2025 2:02 PM EDT [facility] HCO3, Arterial 21.0(L) 22 - 26 mmol/L 06/14/2025 2:02 PM EDT [facility] Total Hemoglobin, Arterial, Whole Blood 14.5 13.7 - 17.5 g/dL 06/14/2025 2:02 PM EDT [facility] Hematocrit, Arterial 44.0 40 - 51.0 % 06/14/2025 2:02 PM EDT [facility] Sodium, Arterial 136 136 - 145 mmol/L 06/14/2025 2:02 PM EDT [facility] Potassium, Arterial 3.4(L) 3.6 - 4.9 mmol/L 06/14/2025 2:02 PM EDT [facility] Chloride, Whole Blood 105 97 - 107 mmol/L 06/14/2025 2:02 PM EDT [facility] Glucose, Arterial 138(H) 74 - 99 mg/dL 06/14/2025 2:02 PM EDT [facility] Ionized Calcium, Arterial 4.9 4.6 - 5.1 mg/dL 06/14/2025 2:02 PM EDT [facility] Lactate, Arterial 4.2(H) 0.5 - 1.6 mmol/L 06/14/2025 2:02 PM EDT [facility] Body Temperature 37.0 Celsius 06/14/2025 2:02 PM EDT [facility] pH, Temp Corrected, Arterial 7.35 7.31 - 7.42 06/14/2025 2:02 PM EDT [facility] pCO2, Temp Corrected, Arterial 38 32 - 45 mm Hg 06/14/2025 2:02 PM EDT [facility] pO2, Temp Corrected, Arterial 376 >80 mm Hg 06/14/2025 2:02 PM EDT [facility] Fancy Wire Drawer ID Ricki Zamarripa 06/14/2025 2:02 PM EDT [facility] Blood Whole blood specimen / Unknown 06/14/2025 2:00 PM EDT 06/14/2025 2:02 PM EDT Phillip Clark MD LAB POINT OF CARE TE ST DOCKED DEVICE UNSOLICITED RESULTS Final Result [facility] [address] [place] [address] * (ABNORMAL) POCT arterial blood gas gem (06/14/2025 1:22 PM EDT) pH, Arterial 7.34 7.31 - 7.42 06/14/2025 1:23 PM EDT [facility] pCO2, Arterial 41 32 - 45 mm Hg 06/14/2025 1:23 PM EDT [facility] pO2, Arterial 518 >80 mm Hg 06/14/2025 1:23 PM EDT [facility] SO2, Arterial 100(H) 94 - 98 % 06/14/2025 1:23 PM EDT [facility] Base Excess, Arterial -3.5(L) -2 - 3 mmol/L 06/14/2025 1:23 PM EDT [facility] HCO3, Arterial 22.1 22 - 26 mmol/L 06/14/2025 1:23 PM EDT [facility] Total Hemoglobin, Arterial, Whole Blood 13.2(L) 13.7 - 17.5 g/dL 06/14/2025 1:23 PM EDT [facility] Hematocrit, Arterial 40.0 40 - 51.0 % 06/14/2025 1: PM EDT [facility] Sodium, Arterial 139 136 - 145 mmol/L 06/14/2025 1: PM EDT [facility] Potassium, Arterial 3.3(L) 3.6 - 4.9 mmol/L 06/14/2025 1:23 PM EDT [facility] Chloride, Whole Blood 104 97 - 107 mmol/L 06/14/2025 1:23 PM T [facility] Glucose, Arterial 137(H) 74 - 99 mg/dL 06/14/2025 1:23 PM T [facility] Ionized Calcium, Arterial 4.2(L) 4.6 - 5.1 mg/dL 06/14/2025 1:23 PM EDT [facility] Lactate, Arterial 3.0(H) 0.5 - 1.6 mmol/L 06/14/2025 1:23 PM EDT [facility] Body Temperature 37.0 Celsius 06/14/2025 1:23 PM EDT [facility] pH, Temp Corrected, Arterial 7.34 7.31 - 7.42 06/14/2025 1:23 PM EDT [facility] pCO2, Temp Corrected, Arterial 41 32 - 45 mm Hg 06/14/2025 1:23 PM EDT [facility] pO2, Temp Corrected, Arterial 518 >80 mm Hg 06/14/2025 1:23 PM EDT [facility] Fancy Wire Drawer ID Ricki Zamarripa 06/14/2025 1:23 PM EDT [facility] Blood Whole blood specimen / Unknown 06/14/2025 1:22 PM EDT 06/14/2025 1:23 PM EDT us Phillip Clark MD LAB POINT OF CARE TE ST DOCKED DEVICE UNSOLICITED RESULTS Final Result [facility] [address] [place] [address] * (ABNORMAL) POCT arterial blood gas gem (06/14/2025 12:52 PM EDT) pH, Arterial 7.40 7.31 - 7.42 06/14/2025 12:54 PM EDT [facility] pCO2, Arterial 35 32 - 45 mm Hg 06/14/2025 12:54 PM EDT [facility] pO2, Arterial 399 >80 mm Hg 06/14/2025 12:54 PM EDT [facility] SO2, Arterial 100(H) 94 - 98 % 06/14/2025 12:54 PM EDT [facility] Base Excess, Arterial -2.6(L) -2 - 3 mmol/L 06/14/2025 12:54 PM EDT [facility] HCO3, Arterial 21.7(L) 22 - 26 mmol/L 06/14/2025 12:54 PM EDT [facility] Total Hemoglobin, Arterial, Whole Blood 11.7(L) 13.7 - 17.5 g/dL 06/14/2025 12:54 PM EDT [facility] Hematocrit, Arterial 35.0(L) 40 - 51.0 % 06/14/2025 12:54 PM EDT [facility] Sodium, Arterial 134(L) 136 - 145 mmol/L 06/14/2025 12:54 PM EDT [facility] Potassium, Arterial 4.2 3.6 - 4.9 mmol/L 06/14/2025 12:54 PM EDT [facility] Chloride, Whole Blood 107 97 - 107 mmol/L 06/14/2025 12:54 PM EDT [facility] Glucose, Arterial 148(H) 74 - 99 mg/dL 06/14/2025 12:54 PM EDT [facility] Ionized Calcium, Arterial 4.1(L) 4.6 - 5.1 mg/dL 06/14/2025 12:54 PM EDT [facility] Lactate, Arterial 2.2(H) 0.5 - 1.6 mmol/L 06/14/2025 12:54 PM EDT [facility] Body Temperature 37.0 Celsius 06/14/2025 12:54 PM EDT [facility] pH, Temp Corrected, Arterial 7.40 7.31 - 7.42 06/14/2025 12:54 PM EDT [facility] pCO2, Temp Corrected, Arterial 35 32 - 45 mm Hg 06/14/2025 12:54 PM EDT [facility] pO2, Temp Corrected, Arterial 399 >80 mm Hg 06/14/2025 12:54 PM EDT [facility] Fancy Wire Drawer ID Jean Claude Staley 06/14/2025 12:54 PM EDT [facility] Blood Whole blood specimen / Unknown 06/14/2025 12:52 PM EDT 06/14/2025 12:54 PM EDT Phillip Clark MD LAB POINT OF CARE TE ST DOCKED DEVICE UNSOLICITED RESULTS Final Result Performing Organization Address City/[facility] Phone Number [facility] [address] [place] [address] * POCT ACT (06/14/2025 12:43 PM EDT) [facility] ACT+ (HIGH RANGE) 98 68 - 600 Seconds 06/14/2025 12:49 PM EDT [facility] Fancy Wire Drawer ID Vick Dupont 06/14/2025 12:49 PM EDT [facility] ACT Device ID [id number] 06/14/2025 12:49 PM EDT [facility] Comment 06/14/2025 12:49 PM EDT [facility] Comment: ACT performed by staff [...] Final Result Performing Organization Address [facility] Co de Phone Number [facility] [address] [facility] [address] [place] [address] * (ABNORMAL) POCT arterial blood gas gem (06/14/2025 12:16 PM EDT) pH, Arterial 7.42 7.31 - 7.42 06/14/2025 12:19 PM EDT [facility] pCO2, Arterial 36 32 - 45 mm Hg 06/14/2025 12:19 PM EDT [facility] pO2, Arterial 358 >80 mm Hg 06/14/2025 12:19 PM EDT [facility] SO2, Arterial 99(H) 94 - 98 % 06/14/2025 12:19 PM EDT [facility] Base Excess, Arterial -0.8 -2 - 3 mmol/L 06/14/2025 12:19 PM EDT [facility] HCO3, Arterial 23.4 22 - 26 mmol/L 06/14/2025 12:19 PM EDT [facility] Total Hemoglobin, Arterial, Whole Blood 11.3(L) 13.7 - 17.5 g/dL 06/14/2025 12:19 PM EDT [facility] Hematocrit, Arterial 34.0(L) 40 - 51.0 % 06/14/2025 12:19 PM EDT [facility] Sodium, Arterial 134(L) 136 - 145 mmol/L 06/14/2025 12:19 PM EDT [facility] Potassium, Arterial 5.7(H) 3.6 - 4.9 mmol/L 06/14/2025 12:19 PM EDT [facility] Chloride, Whole Blood 105 97 - 107 mmol/L 06/14/2025 12:19 PM EDT [facility] Glucose, Arterial 119(H) 74 - 99 mg/dL 06/14/2025 12:19 PM EDT [facility] Ionized Calcium, Arterial 4.0(L) 4.6 - 5.1 mg/dL 06/14/2025 12:19 PM EDT [facility] Lactate, Arterial 1.6 0.5 - 1.6 mmol/L 06/14/2025 12:19 PM EDT [facility] Body Temperature 37.0 Celsius 06/14/2025 12:19 PM EDT [facility] pH, Temp Corrected, Arterial 7.42 7.31 - 7.42 06/14/2025 12:19 PM EDT [facility] pCO2, Temp Corrected, Arterial 36 32 - 45 mm Hg 06/14/2025 12:19 PM EDT [facility] pO2, Temp Corrected, Arterial 358 >80 mm Hg 06/14/2025 12:19 PM EDT [facility] Fancy Wire Drawer ID Vick Dupont 06/14/2025 12:19 PM EDT [facility] Blood Whole blood specimen / Unknown 06/14/2025 12:16 PM EDT 06/14/2025 12:19 PM EDT Phillip Clark MD LAB POINT OF CARE TE ST DOCKED DEVICE UNSOLICITED RESULTS Final Result [facility] [address] [place] [address] * (ABNORMAL) POCT arterial blood gas gem (06/14/2025 12:06 PM EDT) pH, Arterial 7.39 7.31 - 7.42 06/14/2025 12:09 PM EDT [facility] pCO2, Arterial 40 32 - 45 mm Hg 06/14/2025 12:09 PM EDT [facility] pO2, Arterial 378 >80 mm Hg 06/14/2025 12:09 PM EDT [facility] SO2, Arterial 100(H) 94 - 98 % 06/14/2025 12:09 PM EDT [facility] Base Excess, Arterial -0.7 -2 - 3 mmol/L 06/14/2025 12:09 PM EDT [facility] HCO3, Arterial 24.2 22 - 26 mmol/L 06/14/2025 12:09 PM EDT [facility] Total Hemoglobin, Arterial, Whole Blood 11.5(L) 13.7 - 17.5 g/dL 06/14/2025 12:09 PM EDT [facility] Hematocrit, Arterial 35.0(L) 40 - 51.0 % 06/14/2025 12:09 PM EDT [facility] Sodium, Arterial 134(L) 136 - 145 mmol/L 06/14/2025 12:09 PM EDT [facility] Potassium, Arterial 5.0(H) 3.6 - 4.9 mmol/L 06/14/2025 12:09 PM EDT [facility] Chloride, Whole Blood 105 97 - 107 mmol/L 06/14/2025 12:09 PM EDT [facility] Glucose, Arterial 123(H) 74 - 99 mg/dL 06/14/2025 12:09 PM EDT [facility] Ionized Calcium, Arterial 4.2(L) 4.6 - 5.1 mg/dL 06/14/2025 12:09 PM EDT [facility] Lactate, Arterial 1.2 0.5 - 1.6 mmol/L 06/14/2025 12:09 PM EDT [facility] Body Temperature 37.0 Celsius 06/14/2025 12:09 PM EDT [facility] pH, Temp Corrected, Arterial 7.39 7.31 - 7.42 06/14/2025 12:09 PM EDT [facility] pCO2, Temp Corrected, Arterial 40 32 - 45 mm Hg 06/14/2025 12:09 PM EDT [facility] pO2, Temp Corrected, Arterial 378 >80 mm Hg 06/14/2025 12:09 PM EDT [facility] Fancy Wire Drawer ID Cresencio, Vick 06/14/2025 12:09 PM EDT [facility] Blood Whole blood specimen / Unknown 06/14/2025 12:06 PM EDT 06/14/2025 12:09 PM EDT us Phillip Clark MD LAB POINT OF CARE TE ST DOCKED DEVICE UNSOLICITED RESULTS Final Result Performing Organization Address City/State/[facility] Co de Phone Number [facility] [address] [place] [address] * (ABNORMAL) QPLUS (06/14/2025 11:55 AM EDT) Clot Time 06/14/2025 12:12 PM EDT [facility] Clot Time Ratio 12:12 PM EDT [facility] POCT Clot Stiffness 14.6 13.0 - 33.2 hectoPascals 06/14/2025 12:12 PM EDT [facility] Platelet Contribution to Clot Stiffnes 13.1 11.9 - 29.8 hectoPascals 06/14/2025 12:12 PM EDT [facility] Fibrinogen Contribution to Clot Stiffness 1.5 1.0 - 3.7 hectoPascals 06/14/2025 12:12 PM EDT [facility] Heparinase Clot Time 175(H) 103 - 153 Seconds 06/14/2025 12:12 PM EDT [facility] Fancy Wire Drawer ID Ricki Zamarripa 06/14/2025 12:12 PM EDT [facility] Device ID [id number] 06/14/2025 12:12 PM EDT [facility] Whole Blood 06/14/2025 11:5 5 AM EDT 06/14/2025 12:12 PM EDT Narrative [facility] - 06/14/2025 12:[address]: No Clot Detected us Phillip Clark MD LAB POINT OF CARE TE ST DOCKED DEVICE UNSOLICITED RESULTS Final Result Performing Organization Address [facility] Co de Phone Number [facility] [address] [place] [address] * POCT ACT (06/14/2025 11:54 AM EDT) ACT+ (HIGH RANGE) 510 68 - 600 Seconds 06/14/2025 12:07 PM EDT [facility] Fancy Wire Drawer ID Vick Dupont 06/14/2025 12:07 PM EDT [facility] ACT Device ID [id number] 06/14/2025 12:07 PM EDT [facility] Comment 06/14/2025 12:07 PM EDT [facility] Comment: ACT performed by staff [...] Final Result Performing Organization Address [facility]/ZIP Co de Phone Number [facility] [address] [facility] [address] [place] [address] * (ABNORMAL) POCT arterial blood gas gem (06/14/2025 11:33 AM EDT) pH, Arterial 7.37 7.31 - 7.42 06/14/2025 11:35 AM EDT [facility] pCO2, Arterial 43 32 - 45 mm Hg 06/14/2025 11:35 AM EDT [facility] pO2, Arterial 380 >80 mm Hg 06/14/2025 11:35 AM EDT [facility] SO2, Arterial 99(H) 94 - 98 % 06/14/2025 11:35 AM EDT [facility] Base Excess, Arterial -0.5 -2 - 3 mmol/L 06/14/2025 11:35 AM EDT [facility] HCO3, Arterial 24.9 22 - 26 mmol/L 06/14/2025 11:35 AM EDT [facility] Total Hemoglobin, Arterial, Whole Blood 11.5(L) 13.7 - 17.5 g/dL 06/14/2025 11:35 AM EDT [facility] Hematocrit, Arterial 35.0(L) 40 - 51.0 % 06/14/2025 11:35 AM EDT [facility] Sodium, Arterial 134(L) 136 - 145 mmol/L 06/14/2025 11:35 AM EDT [facility] Potassium, Arterial 5.6(H) 3.6 - 4.9 mmol/L 06/14/2025 11:35 AM EDT [facility] Chloride, Whole Blood 103 97 - 107 mmol/L 06/14/2025 11:35 AM EDT [facility] Glucose, Arterial 123(H) 74 - 99 mg/dL 06/14/2025 11:35 AM EDT [facility] Ionized Calcium, Arterial 4.2(L) 4.6 - 5.1 mg/dL 06/14/2025 11:35 AM EDT [facility] Lactate, Arterial 1.0 0.5 - 1.6 mmol/L 06/14/2025 11:35 AM EDT [facility] Body Temperature 37.0 Celsius 06/14/2025 11:35 AM EDT [facility] pH, Temp Corrected, Arterial 7.37 7.31 - 7.42 06/14/2025 11:35 AM EDT [facility] pCO2, Temp Corrected, Arterial 43 32 - 45 mm Hg 06/14/2025 11:35 AM EDT [facility] pO2, Temp Corrected, Arterial 380 >80 mm Hg 06/14/2025 11:35 AM EDT [facility] Fancy Wire Drawer ID Vick Dupont 06/14/2025 11:35 AM EDT [facility] Blood Whole blood specimen / Unknown 06/14/2025 11:33 AM EDT 06/14/2025 11:35 AM EDT us Phillip Clark MD LAB POINT OF CARE TE ST DOCKED DEVICE UNSOLICITED RESULTS Final Result Performing Organization Address [facility] Co de Phone Number [facility] [address] [place] [address] * POCT ACT (06/14/2025 11:24 AM EDT) [facility] Signature ACT+ (HIGH RANGE) 520 68 - 600 Seconds 06/14/2025 11:37 AM EDT [facility] Fancy Wire Drawer ID Vick Dupont 06/14/2025 11:37 AM EDT [facility] ACT Device ID [id number] 06/14/2025 11:37 AM EDT [facility] Comment 06/14/2025 11:37 AM [facility] Comment: ACT performed by staff [...] Final Result Performing Organization Address [facility] Co de Phone Number [facility] [address] [facility] [address] [place] [address] * (ABNORMAL) POCT arterial blood gas gem (06/14/2025 11:03 AM ED) pH, Arterial 7.40 7.31 - 7.42 06/14[facility]25 [facility] p[facility], Arterial 41 32 - 45 mm Hg 06/14/2025 11:04 AM [facility] pO2, Arterial 406 >80 mm Hg 06/14/2025 11:04 AM [facility] SO2, Arterial 100(H) 94 - 98 % 06/14/2025 11:04 AM [facility] Base Excess, Arterial 0.5 -2 - 3 mmol/L 06/14/2025 11:04 AM [facility] HCO3, Arterial 25.4 22 - 26 mmol/L 06/14/2025 11:04 AM [facility] Total Hemoglobin, Arterial, Whole Blood 11.9(L) 13.7 - 17.5 g/dL 06/14/2025 11:04 AM [facility] Hematocrit, Arterial 36.0(L) 40 - 51.0 % 06/14/2025 11:04 AM [facility] Sodium, Arterial 133(L) 136 - 145 mmol/L 06/14/2025 11:04 AM [facility] Potassium, Arterial 5.3(H) 3.6 - 4.9 mmol/L 06/14/2025 11:04 AM [facility] Chloride, Whole Blood 103 97 - 107 mmol/L 06/14/2025 11:04 AM [facility] Glucose, Arterial 121(H) 74 - 99 mg/dL 06/14/2025 11:04 AM [facility] Ionized Calcium, Arterial 4.2(L) 4.6 - 5.1 mg/dL 06/14/2025 11:04 AM [facility] Lactate, Arterial 1.0 0.5 - 1.6 mmol/L 06/14/2025 11:04 AM [facility] Body Temperature 37.0 Celsius 06/14/2025 11:04 AM [facility] pH, Temp Corrected, Arterial 7.40 7.31 - 7.42 06/14/2025 11:04 AM [facility] pCO2, Temp Corrected, Arterial 41 32 - 45 mm Hg 06/14/2025 11:04 AM [facility] pO2, Temp Corrected, Arterial 406 >80 mm Hg 06/14/2025 11:04 AM [facility] Fancy Wire Drawer ID Vick Dupont 06/14/2025 11:04 AM [facility] Blood Whole blood specimen / Unknown 06/14/2025 11:03 AM EDT 06/14/2025 11:04 AM EDT us Phillip Clark MD LAB POINT OF CARE TE ST DOCKED DEVICE UNSOLICITED RESULTS Final Result Performing Organization Address City/[facility]/ZIP Co de Phone Number HEALTHCARE LAB [address] [place] [address] * POCT ACT (06/14/2025 10:57 AM EDT) ACT+ (HIGH RANGE) 569 68 - 600 Seconds 06/14/2025 11:09 AM [facility] Fancy Wire Drawer ID Vick Dupont 06/14/2025 11:09 AM [facility] ACT Device ID [id number] 06/14/2025 11:09 AM [facility] Comment 06/14/2025 11:09 AM [facility] Comment: ACT performed by staff [...] Final Result Performing Organization Address [facility] Co de Phone Number HEALTHCARE LAB [address] LAB [address] [place] [address] * (ABNORMAL) POCT arterial blood gas gem (06/14/2025 10:33 AM EDT) pH, Arterial 7.39 7.31 - 7.42 06/14/2025 10:34 AM [facility] pCO2, Arterial 41 32 - 45 mm Hg 06/14/2025 10:34 AM [facility] pO2, Arterial 349 >80 mm Hg 06/14/2025 10:34 AM [facility] SO2, Arterial 99(H) 94 - 98 % 06/14/2025 10:34 AM [facility] Base Excess, Arterial -0.2 -2 - 3 mmol/L 06/14/2025 10:34 AM [facility] HCO3, Arterial 24.8 22 - 26 mmol/L 06/14/2025 10:34 AM [facility] Total Hemoglobin, Arterial, Whole Blood 10.9(L) 13.7 - 17.5 g/dL 06/14/2025 10:34 AM [facility] Hematocrit, Arterial 33.0(L) 40 - 51.0 % 06/14/2025 10:34 AM [facility] Sodium, Arterial 135(L) 136 - 145 mmol/L 06/14/2025 10:34 AM [facility] Potassium, Arterial 4.8 3.6 - 4.9 mmol/L 06/14/2025 10:34 AM [facility] Chloride, Whole Blood 103 97 - 107 mmol/L 06/14/2025 10:34 AM [facility] Glucose, Arterial 116(H) 74 - 99 mg/dL 06/14/2025 10:34 AM [facility] Ionized Calcium, Arterial 4.1(L) 4.6 - 5.1 mg/dL 06/14/2025 10:34 AM [facility] Lactate, Arterial 1.3 0.5 - 1.6 mmol/L 06/14/2025 10:34 AM [facility] Body Temperature 37.0 Celsius 06/14/2025 10:34 AM [facility] pH, Temp Corrected, Arterial 7.39 7.31 - 7.42 06/14/2025 10:34 AM [facility] pCO2, Temp Corrected, Arterial 41 32 - 45 mm Hg 06/14/2025 10:34 AM [facility] pO2, Temp Corrected, Arterial 349 >80 mm Hg 06/14/2025 10:34 AM EDT [facility] Fancy Wire Drawer ID Vick Dupont 06/14/2025 10:34 AM [facility] Blood Whole blood specimen / Unknown 06/14/2025 10:33 AM EDT 06/14/2025 10:34 AM EDT us Phillip Clark MD LAB POINT OF CARE TE ST DOCKED DEVICE UNSOLICITED RESULTS Final Result Performing Organization Address City/[facility] Co de Phone Number [facility]ARE [facility] [address] [place] [address] * (ABNORMAL) POCT ACT (06/14/2025 10:26 AM EDT) ACT+ (HIGH RANGE) >600(H) 68 - 600 Seconds 06/14/2025 10:40 AM [facility] Fancy Wire Drawer ID Vick Dupont 06/14/2025 10:40 AM [facility] ACT Device ID [id number] 06/14/2025 10:40 AM [facility] Comment 06/14/2025 10:40 AM [facility] Comment: ACT performed by staff [...] UNSOLICITED RESULTS Final Result Performing Organization Address City/[facility] Co de Phone Number [facility] [address] LAB [address] [place] [address] * Surgical Pathology Exam (06/14/2025 10:18 AM EDT) Case Report Surgical Pathology Case: [id number] Authorizing Provider: Phillip Clark MD Collected: 06/14/2025 1018 Ordering Location: [facility] OPERATING RO[facility] Received: 06/14/2025 1413 Pathologist: Beth Lake MD Specimen: Heart, aortic valve leaflets 06/15/2025 11:44 AM EDT [facility] Final Diagnosis A. AORTIC VALVE LEAFLETS, REPLACEMENT: - FIBROSIS AND MYXOID DEGENERATION. 06/15/2025 11:44 AM EDT [facility] at 1144 EDT Clinical Information Severe aortic regurgitation [I35.1] 06/15/2025 11:44 AM EDT [facility] Gross Description A. AORTIC VALVE LEAFLETS Received fresh and placed in formalin labeled aortic valve leaflets are 2 white-montez soft cardiac leaflets ranging in size from 2.5-4.0 cm in greatest dimension. Warp Splitter sections are submitted in cassette A1. Cold Time: 3h 55m April Santos 06/15/2025 11:44 AM EDT [facility] Tissue Heart structure / Unknown 06/14/2025 10:18 AM EDT 06/14/2025 2:13 PM EDT Comment:Pre-op diagnosis: Severe aortic regurgitation [I35.1] us Phillip Clark MD LAB PATHOLOGY ORDERABLES Fin al Result [facility] [address] [place] [address] * (ABNORMAL) POCT arterial blood gas gem (06/14/2025 10:08 AM EDT) pH, Arterial 7.40 7.31 - 7.42 06/14/2025 10:17 AM [facility] pCO2, Arterial 40 32 - 45 mm Hg 06/14/2025 10:17 AM EDT [facility] pO2, Arterial 410 >80 mm Hg 06/14/2025 10:17 AM [facility] SO2, Arterial 100(H) 94 - 98 % 06/14/2025 10:17 AM EDT [facility] Base Excess, Arterial 0.0 -2 - 3 mmol/L 06/14/2025 10:17 AM EDT [facility] HCO3, Arterial 24.8 22 - 26 mmol/L 06/14/2025 10:17 AM EDT [facility] Total Hemoglobin, Arterial, Whole Blood 10.1(L) 13.7 - 17.5 g/dL 06/14/2025 10:17 AM EDT [facility] Hematocrit, Arterial 30.0(L) 40 - 51.0 % 06/14/2025 10:17 AM EDT [facility] Sodium, Arterial 133(L) 136 - 145 mmol/L 06/14/2025 10:17 AM EDT [facility] Potassium, Arterial 4.7 3.6 - 4.9 mmol/L 06/14/2025 10:17 AM EDT [facility] Chloride, Whole Blood 104 97 - 107 mmol/L 06/14/2025 10:17 AM EDT [facility] Glucose, Arterial 122(H) 74 - 99 mg/dL 06/14/2025 10:17 AM EDT [facility] Ionized Calcium, Arterial 3.9(L) 4.6 - 5.1 mg/dL 06/14/2025 10:17 AM EDT [facility] Lactate, Arterial 1.5 0.5 - 1.6 mmol/L 06/14/2025 10:17 AM EDT [facility] Body Temperature 37.0 Celsius 06/14/2025 10:17 AM EDT [facility] pH, Temp Corrected, Arterial 7.40 7.31 - 7.42 06/14/2025 10:17 AM EDT [facility] pCO2, Temp Corrected, Arterial 40 32 - 45 mm Hg 06/14/2025 10:17 AM EDT [facility] pO2, Temp Corrected, Arterial 410 >80 mm Hg 06/14/2025 10:17 AM EDT [facility] Fancy Wire Drawer ID Vick Dupont 06/14/2025 10:17 AM EDT [facility] Blood Whole blood specimen / Unknown 06/14/2025 10:08 AM EDT 06/14/2025 10:17 AM EDT Phillip Clark MD LAB POINT OF CARE TE ST DOCKED DEVICE UNSOLICITED RESULTS Final Result [facility] [address] [place] [address] * (ABNORMAL) POCT ACT (06/14/2025 10:04 AM EDT) ACT+ (HIGH RANGE) >600(H) 68 - 600 Seconds 06/14/2025 10:19 AM EDT [facility] Fancy Wire Drawer ID Vick Dupont 06/14/2025 10:19 AM [facility] ACT Device ID [id number] 06/14/2025 10:19 AM [facility] Comment 06/14/2025 10:19 AM EDT [facility] Comment: ACT performed by staff [...] UNSOLICITED RESULTS Final Result Performing Organization Address City/State/[facility] Co de Phone Number [facility] [address] LAB [address] [place] [address] * POCT ACT (06/14/2025 8:13 AM EDT) ACT+ (HIGH RANGE) 90 68 - 600 Seconds 06/14/2025 8:20 AM [facility]T [facility] Fancy Wire Drawer ID Kevin Hernandez 06/14/2025 8:20 AM [facility] ACT Device ID [id number] 06/14/2025 8:20 AM [facility] Comment 06/14/2025 8:20 AM EDT [facility] Comment: ACT performed by staff [...] ST DOCKED DEVICE UNSOLICITED RESULTS Final Result [facility] [address] [place], [place] [id number] [place] [address] LAB [address] [place] [address] * (ABNORMAL) POCT arterial blood gas gem (06/14/2025 8:13 AM EDT) pH, Arterial 7.38 7.31 - 7.42 06/14/2025 8:15 AM EDT [facility] pCO2, Arterial 40 32 - 45 mm Hg 06/14/2025 8:15 AM EDT [facility] pO2, Arterial 91 >80 mm Hg 06/14/2025 8:15 AM EDT [facility] SO2, Arterial 99(H) 94 - 98 % 06/14/2025 8:15 AM EDT [facility] Base Excess, Arterial -1.3 -2 - 3 mmol/L 06/14/2025 8:15 AM EDT [facility] HCO3, Arterial 23.7 22 - 26 mmol/L 06/14/2025 8:15 AM EDT [facility] Total Hemoglobin, Arterial, Whole Blood 14.5 13.7 - 17.5 g/dL 06/14/2025 8:15 AM EDT [facility] Hematocrit, Arterial 44.0 40 - 51.0 % 06/14/2025 8:15 AM EDT [facility] Sodium, Arterial 135(L) 136 - 145 mmol/L 06/14/2025 8:15 AM EDT [facility] Potassium, Arterial 4.1 3.6 - 4.9 mmol/L 06/14/2025 8:15 AM EDT [facility] Chloride, Whole Blood 103 97 - 107 mmol/L 06/14/2025 8:15 AM EDT [facility] Glucose, Arterial 95 74 - 99 mg/dL 06/14/2025 8:15 AM EDT [facility] Ionized Calcium, Arterial 4.7 4.6 - 5.1 mg/dL 06/14/2025 8:15 AM EDT [facility] Lactate, Arterial 0.8 0.5 - 1.6 mmol/L 06/14/2025 8:15 AM EDT [facility] Body Temperature 37.0 Celsius 06/14/2025 8:15 AM EDT [facility] pH, Temp Corrected, Arterial 7.38 7.31 - 7.42 06/14/2025 8:15 AM [facility] pCO2, Temp Corrected, Arterial 40 32 - 45 mm Hg 06/14/2025 8:15 AM [facility] pO2, Temp Corrected, Arterial 91 >80 mm Hg 06/14/2025 8:15 AM [facility]T [facility] Fancy Wire Drawer ID Lb Coreas 06/14/2025 8:15 AM [facility] Blood Whole blood specimen / Unknown 06/14/2025 8:13 AM EDT 06/14/2025 8:15 AM EDT us Phillip Clark MD LAB POINT OF CARE TE ST DOCKED DEVICE UNSOLICITED RESULTS Final Result Performing Organization Address City/[facility] Co de Phone Number [facility]ALTH[facility]ARE LAB [address] [place] [address] * Type and Screen (06/14/2025 6:27 AM EDT) Pathologist [facility] ABO/Rh O Positive 06/14/2025 6:37 AM EDT [facility] Antibody Screen Negative 06/14/2025 6:37 AM EDT [facility] Specimen Expiration 06/17/2025 23:59 06/14/2025 6:37 AM EDT [facility] Blood Venous blood specimen / Unknown Venipuncture / Unknown 06/14/2025 6:27 AM EDT 06/14/2025 6:37 AM EDT us Phillip Clark MD LAB BLOOD BANK TEST ORDERABL ES Final Result Performing Organization Address [facility]/ZIP Co de Phone Number BLOOD BANK [address] [place] [address], [place] * POCT glucose meter (06/14/2025 6:23 AM EDT) [facility] POCT Glucose 93 74 - 99 mg/dL [...] Comment 06/14/2025 6:24 AM EDT [facility] Fancy Wire Drawer ID Kassi Sinha 06/14/2025 6:24 AM EDT [facility] Device ID [id number] 06/14/2025 6:24 AM EDT [facility] Specimen Type POC Venous 06/14/2025 6:24 AM EDT [facility] Blood Venous blood specimen / Unknown 06/14/2025 6:23 AM EDT 06/14/2025 6:24 AM EDT Phillip Clark MD LAB POINT OF CARE TE ST DOCKED DEVICE UNSOLICITED RESULTS Final Result Performing Organization Address City/State/[facility] Co de Phone Number HEALTHCARE LAB [address] [place] [address] documented in this encounter Visit Diagnoses Diagnosis Aortic valve regurgitation- Primary Aortic valve disorders Severe aortic regurgitation Other secondary hypertension S/P AVR Severe aortic regurgitation BMI 30.0-30.9,adult High cholesterol Pure hypercholesterolemia Diabetes Type II or unspecified type diabetes mellitus without mention of complication, not stated as uncontrolled Hypertension Unspecified essential hypertension CAD (coronary artery disease) Coronary atherosclerosis of unspecified type of vessel, cheesh-na or graft History of coronary angioplasty with [...] add comment - Comment: dose given by mold shifter rn @ 0627Carol Ruiz instructed medical technical writer to hold 0900 dose)2003 (Given - [...] Until Discontinued, Routine 1758 (Given - Provider: rBittaney Dumas, HESHAM) 1655 (Given - Provider: Vicente [...] as of this encounter Care Teams Data Processing Systems Consultant Relationship Specialty Start Date End Date Kamran Singh MD [address] [place] [address] PCP - General 02/28/25 documented as of this encounter
--- OUTSIDE RECORDS SUMMARY | 2025-07-01 08:51 | XMS_ITS | Encounter Summary ---
Author Organization [facility] Address [address] [place] [address] Care Team Providers Care Swaging Machine Operator Name Role Phone Kamran Singh MD Primary Care Provider +1- [phone] Encounter Details Date Type Department Care Team (Late Contact Info) Description 01/04/2025 Orders Only External Location [address] [place] [address] Provider, External Social History Tobacco Use Types [...] Description 07/07/2025 2:40 PM EST Office Visit [place] [facility] [address], [address] [place] [address] Phillip Clark MD [address] [place] [address] documented as of this encounter Procedures Procedure [...] on filedocumented in this encounter Care Teams Swaging Machine Operator Relationship Specialty Start Date End Date Kamran Singh MD [address] [facility] [place] [address] PCP - General 02/28/25 documented as of this encounter
--- OUTSIDE RECORDS SUMMARY | 2025-07-01 08:51 | XMS_ITS | Encounter Summary ---
Author Organization [facility] Address [address] [place] [address] Care Team Providers Care Slabber Light Name Role Phone Kamran Singh MD Primary Care Provider +1- [phone] Encounter Details Date Type Department Care Team (Late st Contact Info) Description 01/28/2025 Orders Only External Location [address] [place] [address] Provider, External Social History Tobacco Use Types [...] Office Visit [facility] [address], [address] [place] [address] Phillip Clark MD [address] [place] [address] documented as of this encounter Procedures Procedure [...] on filedocumented in this encounter Care Teams Slabber Light Relationship Specialty Start Date End Date Kamran Singh MD [address] [facility] [place] [address] PCP - General 02/28/25 documented as of this encounter
--- OUTSIDE RECORDS SUMMARY | 2025-07-01 08:51 | XMS_ITS | Encounter Summary ---
Author Organization [facility] Address [address] [place] [id number] Care Team Providers Care Resolution Specialist Name Role Phone Kamran Singh MD Primary Care Provider +1- [phone] Encounter Details Date Type Department Care Team (Latest Contact Info) Description 06/30/2025 Travel Social History Tobacco Use Types Packs/Day [...] in a jail (including now)? No 06/15/2025 [facility] Utilities Answer Date Recorded In the past [...] Clinic Cardiothoracic [address], [address] [place] [address] Phillip Clark MD [address] [place] [address] documented as of this encounter Visit Diagnoses Not on filedocumented in this encounter Additional Health Concerns Assessment Noted Time A fall risk assessment has been complete d for the patient 06/09/2025 12:15 PM EDT A Body Mass Index follow-up plan has been documented for the patient 06/20/2025 10:30 AM EDT documented as of this encounter Care Teams Resolution Specialist Relationship Specialty Start Date End Date Kamran Singh MD [address] [facility] [place] [address] PCP - General 02/28/25 documented as of this encounter
--- OUTSIDE RECORDS SUMMARY | 2025-07-01 08:52 | XMS_ITS | Encounter Summary ---
Author Organization [facility] Address [address] [place] [place] [address] Care Team Providers Care Private Banker Name Role Phone Kamran Singh MD Primary Care Provider +1- [phone] Encounter Details Date Type Department Care Team [...] Description 07/07/2025 2:40 PM EST Office Visit [facility] [address], [address] [place] [address] Phillip Clark MD [address] [place] [address] documented as of this encounter Visit Diagnoses Not on filedocumented in this encounter Additional Health Concerns Assessment Noted Time A fall risk assessment has been complete d for the patient 06/09/2025 12:15 PM EDT A Body Mass Index follow-up plan has been documented for the patient 06/09/2025 2:00 PM EDT documented as of this encounter Care Teams Private Banker Relationship Specialty Start Date End Date Kamran Singh MD [address] [place] [address] PCP - General 02/28/25 documented as of this encounter
--- OUTSIDE RECORDS SUMMARY | 2025-07-01 08:52 | XMS_ITS | Encounter Summary ---
Author Organization [facility] Address [address] [place] [address] Care Team Providers Care Box Sealing Inspector Name Role Phone Kamran Singh MD Primary Care Provider +1- [phone] Encounter Details Date Type Department Care Team [...] Clinic Cardiothoracic [address], [address] [place] [address] Phillip Clark MD [address] [place] [address] documented as of this encounter Visit Diagnoses Not on filedocumented in this encounter Additional Health Concerns Assessment Noted Time A fall risk assessment has been complete d for the patient 05/05/2025 9:58 AM EDT A Body Mass Index follow-up plan has been documented for the patient 05/05/2025 10:51 AM EDT documented as of this encounter Care Teams Box Sealing Inspector Relationship Specialty Start Date End Date Kamran Singh MD [address] [place] [address] PCP - General 02/28/25 documented as of this encounter
--- OUTSIDE RECORDS SUMMARY | 2025-07-01 08:52 | XMS_ITS | Encounter Summary ---
Author Organization [facility] Address [address] [place] [id number] Care Team Providers Care Duck Bill Operator Name Role Phone Kamran Singh MD Primary Care Provider +1- [phone] Encounter Details Date Type Department Care Team [...] any time in the past 12 m [facility], were you homeless or living in a long term (including now)? No 06/15/2025 [facility] [...] Office Visit [place] [facility] [address], [address] [place] [address] Phillip Clark MD [address] [place] [address] documented as of this encounter Visit Diagnoses Not on filedocumented in this encounter Additional Health Concerns Assessment Noted Time A fall risk assessment has been complete d for the patient 06/09/2025 12:15 PM EDT A Body Mass Index follow-up plan has been documented for the patient 06/20/2025 10:30 AM EDT documented as of this encounter Care Teams Duck Bill Operator Relationship Specialty Start Date End Date Kamran Singh MD [address] [place] [address] PCP - General 02/28/25 documented as of this encounter
--- OUTSIDE RECORDS SUMMARY | 2025-07-01 08:52 | XMS_ITS | Encounter Summary ---
Author Organization [facility] Address [address] [place] [id number] Care Team Providers Care Mold Repairer Name Role Phone Kamran Singh MD Primary Care Provider +1- [phone] Encounter Details Date Type Department Care Team [...] any time in the past 12 m [facility], were you homeless or living in a halfway (including now)? No 06/15/2025 [facility] Utilities Answer Date Recorded In [...] Office Visit [place] [facility] [address], [address] [place] [address] Phillip Clark MD [address] [place] [address] documented as of this encounter Visit Diagnoses Not on filedocumented in this encounter Additional Health Concerns Assessment Noted Time A fall risk assessment has been complete d for the patient 06/09/2025 12:15 PM EDT A Body Mass Index follow-up plan has been documented for the patient 06/20/2025 10:30 AM EDT documented as of this encounter Care Teams Mold Repairer Relationship Specialty Start Date End Date Kamran Singh MD [address] [place] [address] PCP - General 02/28/25 documented as of this encounter
--- OUTSIDE RECORDS SUMMARY | 2025-07-01 08:52 | XMS_ITS | Encounter Summary ---
Author Organization [facility] Address [address] [place] [address] Care Team Providers Care Healthcare Architect Name Role Phone Kamran Singh MD Primary Care Provider +1- [phone] Encounter Details Date Type Department Care Team [...] Clinic Cardiothoracic [address], [address] [place] [address] Phillip Clark MD [address] [place] [address] documented as of this encounter Visit Diagnoses Not on filedocumented in this encounter Additional Health Concerns Assessment Noted Time A fall risk assessment has been complete d for the patient 05/05/2025 9:58 AM EDT A Body Mass Index follow-up plan has been documented for the patient 05/05/2025 10:51 AM EDT documented as of this encounter Care Teams Healthcare Architect Relationship Specialty Start Date End Date Kamran Singh MD [address] [place] [address] PCP - General 02/28/25 documented as of this encounter
--- OUTSIDE RECORDS SUMMARY | 2025-07-01 08:52 | XMS_ITS | Encounter Summary ---
Author Organization [facility] Address [address] [place] [id number] Care Team Providers Care Express Clerk Name Role Phone Kamran Singh MD Primary Care Provider +1- [phone] Encounter Details Date Type Department Care Team [...] in a [facility] (including now)? No 06/15/2025 [facility] Utilities [...] Clinic Cardiothoracic [address], [address] [place] [address] Phillip Clark MD [address] [place] [address] documented as of this encounter Visit Diagnoses Not on filedocumented in this encounter Additional Health Concerns Assessment Noted Time A fall risk assessment has been complete d for the patient 06/09/2025 12:15 PM EDT A Body Mass Index follow-up plan has been documented for the patient 06/20/2025 10:30 AM EDT documented as of this encounter Care Teams Express Clerk Relationship Specialty Start Date End Date Kamran Singh MD [address] [place] [facility] [place] [address] PCP - General 02/28/25 documented as of this encounter
--- OUTSIDE RECORDS SUMMARY | 2025-07-01 08:52 | XMS_ITS | Encounter Summary ---
Author Organization [facility] Address [address] [place] [id number] Care Team Providers Care Meat Products Demonstrator Name Role Phone Kamran Singh MD Primary Care Provider +1- [phone] Encounter Details Date Type Department Care Team [...] a senior living (including now)? No 06/15/2025 [facility] [...] Office Visit [place] [facility] [address], [address] [place] [address] Phillip Clark MD [address] [place] [address] documented as of this encounter Visit Diagnoses Not on filedocumented in this encounter Additional Health Concerns Assessment Noted Time A fall risk assessment has been complete d for the patient 06/09/2025 12:15 PM EDT A Body Mass Index follow-up plan has been documented for the patient 06/20/2025 10:30 AM EDT documented as of this encounter Care Teams Meat Products Demonstrator Relationship Specialty Start Date End Date Kamran Singh MD [address] [place] [address] PCP - General 02/28/25 documented as of this encounter
--- OUTSIDE RECORDS SUMMARY | 2025-07-01 08:52 | XMS_ITS | Encounter Summary ---
Author Organization [facility] Address [address] [place] [address] Care Team Providers Care Yard Laborer Name Role Phone Kamran Singh MD Primary Care Provider +1- [phone] Encounter Details Date Type Department Care Team [...] Clinic Cardiothoracic [address], [address] [place] [address] Phillip Clark MD [address] [place] [address] documented as of this encounter Visit Diagnoses Not on filedocumented in this encounter Additional Health Concerns Assessment Noted Time A fall risk assessment has been complete d for the patient 05/05/2025 9:58 AM EDT A Body Mass Index follow-up plan has been documented for the patient 05/05/2025 10:51 AM EDT documented as of this encounter Care Teams Yard Laborer Relationship Specialty Start Date End Date Kamran Singh MD [address] [place] [address] PCP - General 02/28/25 documented as of this encounter
--- OUTSIDE RECORDS SUMMARY | 2025-07-01 08:53 | XMS_ITS | Encounter Summary ---
Author Organization [facility] Address [address] [place] [id number] Care Team Providers Care Hospice Home Care Coordinator Name Role Phone Kamran Singh MD Primary Care Provider +1- [phone] Encounter Details Date Type Department Care Team [...] health care facility (including now)? No 06/15/2025 [facility] Utilities Answer Date Recorded In [...] Clinic Cardiothoracic [address], [address] [place] [address] Phillip Clark MD [address] [place] [address] documented as of this encounter Visit Diagnoses Not on filedocumented in this encounter Additional Health Concerns Assessment Noted Time A fall risk assessment has been complete d for the patient 06/09/2025 12:15 PM EDT A Body Mass Index follow-up plan has been documented for the patient 06/20/2025 10:30 AM EDT documented as of this encounter Care Teams Hospice Home Care Coordinator Relationship Specialty Start Date End Date Kamran Singh MD [address] [facility] [place] [address] PCP - General 02/28/25 documented as of this encounter
--- OUTSIDE RECORDS SUMMARY | 2025-07-01 08:53 | XMS_ITS | Encounter Summary ---
Author Organization [facility] Address [address] [place] [id number] Care Team Providers Care Circus Supervisor Name Role Phone Kamran Singh MD Primary Care Provider +1- [phone] Encounter Details Date Type Department Care Team [...] in a long-term (including now)? No 06/15/2025 [facility] [...] Clinic Cardiothoracic [address], [address] [place] [address] Phillip Clark MD [address] [place] [address] documented as of this encounter Visit Diagnoses Not on filedocumented in this encounter Additional Health Concerns Assessment Noted Time A fall risk assessment has been complete d for the patient 06/09/2025 12:15 PM EDT A Body Mass Index follow-up plan has been documented for the patient 06/20/2025 10:30 AM EDT documented as of this encounter Care Teams Circus Supervisor Relationship Specialty Start Date End Date Kamran Singh MD [address] [place] [address] PCP - General 02/28/25 documented as of this encounter
--- OUTSIDE RECORDS SUMMARY | 2025-07-01 08:53 | XMS_ITS | Encounter Summary ---
Author Organization [facility] Address [address] [place] [id number] Care Team Providers Care Etcher Electrolytic Name Role Phone Kamran Singh MD Primary Care Provider +1- [phone] Encounter Details Date Type Department Care Team [...] in a correction (including now)? No 06/15/2025 [facility] Utilities Answer Date Recorded In the [...] Clinic Cardiothoracic [address], [address] [place] [address] Phillip Clark MD [address] [place] [address] documented as of this encounter Visit Diagnoses Not on filedocumented in this encounter Additional Health Concerns Assessment Noted Time A fall risk assessment has been complete d for the patient 06/09/2025 12:15 PM EDT A Body Mass Index follow-up plan has been documented for the patient 06/20/2025 10:30 AM EDT documented as of this encounter Care Teams Etcher Electrolytic Relationship Specialty Start Date End Date Kamran Singh MD [address] [facility] [place] [address] PCP - General 02/28/25 documented as of this encounter
--- OUTSIDE RECORDS SUMMARY | 2025-07-01 08:55 | XMS_ITS | Clinical Summary ---
Author Organization [facility] Address [address] [place] [id number] Care Team Providers Care Licensed Loan Officer Assistant Name Role Phone Kamran Singh MD Primary Care Provider [phone]- [phone] Allergies Active Allergy Reactions Criticality Noted Date [...] mouth daily. 30 tablet 2 2025 Active methocarbamol (Robaxin) 500 MG tablet Take [...] nostril if symptoms continue 1 each Active warfarin (Coumadin) 2 MG tablet Take [...] 2 tablets by mouth every morning. Under [place] law, monthly prescriptions (30 days) can be [...] daily. 2024 Discontinued(S top Taking at Discharge) docusate sodium (Colace) 100 MG capsule Take 1 capsule by mouth 2 times a day for 10 days. Hold for loose stool 20 capsule 2024 senna (Senokot) 8.6 MG tablet Take 2 tablets by mouth nightly for 10 days. Hold for loose stools 20 tablet 2024 potassium chloride CR (Klor-Con M20) 20 MEQ [...] & Plan (06/16/2025 1:20 PM EDT): - 10/15: statin - 06/16: start home ezetimibe -Monitor [...] BY BELLE SMITH MD - s/manuel AVR / - Monitor per protocol. >>ASSESSMENT AND PLAN [...] Encounters Date Type Department Care Team Description 06/30/2025 Travel 06/20/2025 Travel 06/19/2025 Travel 06/18/2025 Travel 06/17/2025 Travel 06/16/2025 Travel 06/15/2025 Travel 06/14/2025 7:45 AM EDT - 06/14/2025 8:15 PM EDT Surgery [facility] [address] [place] [address] Phillip Clark MD Aortic valve replacement [22610 (CPT )] 06/14/2025 7:45 AM EDT Anesthesia Event [facility] [address] [place] [address] Jean Claude Staley MD Burns, Jonathon R, DO 06/14/2025 5:18 AM EDT - 06/20/2025 2:25 PM EDT Hospital Encounter [facility] Inpatient [address] [place] [address] Phillip Clark MD Other secondary hypertension (Primary Dx); Severe aortic regurgitation; S/P AVR Discharge Disposition: Home or Self Care 06/14/2025 Travel 06/09/2025 1:42 PM EDT - 06/09/2025 11:59 PM EDT [facility] [address], [address] [place] [address] Severe aortic regurgitation Discharge Disposition: Home or Self Care 06/09/2025 12:20 PM EDT Office Visit [facility] Cardiothoracic [address], [address] [place] [address] Phillip Clark MD Severe aortic regurgitation (Primary Dx) 06/09/2025 Travel 06/07/2025 8:30 AM EDT Pre-Admission Testing [facility]-op [facility] [address], [address] [place] [address] 06/07/2025 Travel 06/02/2025 Travel 05/05/2025 10:20 AM EDT Office Visit [facility] Cardi[facility] [address], [address] [place] [address] Phillip Clark MD Severe aortic regurgitation (Primary Dx) 05/05/2025 Travel 04/28/2025 Travel 04/14/2025 1:00 PM EDT Office Visit [facility] Cardioth[facility]acic [address], [address] [place] [address] Phillip Clark MD Ascending aortic aneurysm, unspecified whether ruptured (CMS/HCC) (Primary Dx); Aortic valve insufficiency, etiology of cardiac valve disease unspecified 04/14/2025 7:13 AM EDT - 04/14/2025 11:59 PM EDT Hospital Encounter [facility] [address] [place] [address] Ascending aortic aneurysm, unspecified whether ruptured (CMS/HCC) [...] any time in the past 12 m [facility], were you homeless or living in a alf (including now)? No 06/15/2025 [facility] Utilities Answer Date Recorded In the [...] Description 07/07/2025 2:40 PM EST [facility] [address], [facility] [address] [place] [address] Phillip Clark MD [address] [place] [address] Health Maintenance Due Date Last Done Comments [facility]-Hepatitis C Screening 1955 [facility]-Medicare Annual Wellness (AWV) 1955 [facility]-Infant/Child/Adol SDOH Screenings 1955 Diabetes: Dental Exam 1965 [facility]-DTaP,Tdap,and Td Vaccines (1 - Tdap) 1974 [facility]-Pneumococcal Vaccine: 50+ Years (1 of 2 - PCV) 1974 CT Colonography 2000 Colonoscopy 2000 FIT-DNA 2000 FIT 2000 FOBT 2000 Sigmoidoscopy 2000 [facility]-Colorectal Cancer Screening 2000 [facility]-Zoster Vaccines (1 of 2) 2005 [facility]-RSV Vaccine: 60+ Years or (1 - Risk 60-74 years 1-dose series) 2015 [id number] Vaccine ( season) 2025 06/22/2022, 01/19/2022, 07/12/2021, [...] this topic Medical Devices Implanted Type Area Forestry Aid Device Identifier Shelf Expiration Date Model / Serial / Lot Graft Ptch [id number] [place] - [id number] Implanted:Qty: 1 on 06/14/2025 by Phillip Clark MD at [facility] N/A: Heart [id number] / / Valve Atrial 25mm Rotatabl Cuf Std Ptfe - [id number] - [id number] Implanted:Qty: 1 on 06/14/2025 by Phillip Clark MD at [facility] N/A: Heart [id number] 03/28/2030 [id number] / [id number] / [id number] Procedures Procedure Name Priority Date/Time Associated Diagnosis [...] PANEL, PLASMA Routine 06/16/2025 5:35 PM EDT NC CRITICAL CARE, E/M 30-74 MINUTES Routine 06/16/2025 [...] PEP THERAPY Routine 06/15/2025 12:00 PM EDT NC CRITICAL CARE, E/M 30-74 MINUTES Routine 06/15/2025 [...] 1 VIEW Routine 06/15/2025 2:53 AM EDT NC CRITICAL CARE, ADDL 30 MIN Routine 06/15/2025 12:21 AM EDT Other secondary hypertension NC CRITICAL CARE, ADDL 30 MIN Routine 06/15/2025 [...] PANEL, ARTERIAL Routine 06/14/2025 6:47 PM EDT NC CRITICAL CARE, E/M 30-74 MINUTES Routine 06/14/2025 [...] IMAGING PLACEHOLDER Routine 06/14/2025 8:32 AM EDT NC INSERT/PLACE FLOW DIRECT CATH Routine 06/14/2025 8:32 AM EDT ANESTHESIA ULTRASOUND GUIDED Routine 06/14/2025 8:32 AM EDT PB ANESTHESIA NON-TIMED PROCEDURE PLACEHOLDER Routine 06/14/2025 8:32 AM EDT NC AN CENTRAL LINE DOUBLE LUMEN Routine 06/14/2025 8:32 AM EDT PB ANESTHESIA PLACEHOLDER Routine 06/14/2025 8:16 AM EDT NC AN ELECTIVE ENDOTRACHEAL AIRWAY Routine 06/14/2025 8:16 AM EDT POCT ACT UNSOLICITED RESULTS Routine 06/14/2025 8:13 AM EDT POCT ARTERIAL BLOOD GAS GEM UNSOLICITED RESULTS Routine 06/14/2025 8:13 AM EDT PB ANESTHESIA NON-TIMED PROCEDURE PLACEHOLDER Routine 06/14/2025 8:08 AM EDT NC -AORT GRF W/CARD BYP F/AORTIC DISSECTION 06/14/2025 [...] LAB COAGULATION METHOD 06/20/2025 2:29 AM EDT [facility] INR 2.9(H) 0.9 - 1.1 LAB COAGULATION METHOD 06/20/2025 2:29 AM EDT [facility] Blood Venous blood specimen / Unknown Venipuncture / Unknown 06/20/2025 1:52 AM EDT 06/20/2025 1:59 AM EDT Narrative [facility] - 06/20/2025 2:29 AM [...] of recurrent DE INR 2.5 to 3.5 us Phillip Clark MD LAB BLOOD ORDERABLES Final R esult [facility] [address] [place] [address] * (ABNORMAL) CBC (06/20/2025 1:52 AM EDT) Only the most recent of9 resultswithin the time period is included. WBC Count 6.95 3.70 - 10.30 10*3/uL LAB HEMATOLOGY METHOD 06/20/2025 2:07 AM EDT [facility] RBC Count 3.73(L) 4.60 - 6.10 10*6/uL LAB HEMATOLOGY METHOD 06/20/2025 2:07 AM EDT [facility] HGB 10.4(L) 13.7 - 17.5 g/dL LAB HEMATOLOGY METHOD 06/20/2025 2:07 AM EDT [facility] HCT 31.9(L) 40.0 - 51.0 % LAB HEMATOLOGY METHOD 06/20/2025 2:07 AM EDT [facility] Platelet Count 187 155 - 369 10*3/uL LAB HEMATOLOGY METHOD 06/20/2025 2:07 AM EDT [facility] MCV 86 79 - 98 fL LAB HEMATOLOGY METHOD 06/20/2025 2:07 AM EDT [facility] MCH 27.9 26.0 - 32.0 pg LAB HEMATOLOGY METHOD 06/20/2025 2:07 AM EDT [facility] MCHC 32.6 30.7 - 35.5 g/dL LAB HEMATOLOGY METHOD 06/20/2025 2:07 AM EDT [facility] RDW 14.8(H) 11.5 - 14.5 % LAB HEMATOLOGY METHOD 06/20/2025 2:07 AM EDT [facility] MPV 10.2 8.8 - 12.5 fL LAB HEMATOLOGY METHOD 06/20/2025 2:07 AM EDT [facility] nRBC 0.0 <=0.0 per 100 WBCs LAB HEMATOLOGY METHOD 06/20/2025 2:07 AM EDT [facility] Blood Venous blood specimen / Unknown Venipuncture / Unknown 06/20/2025 1:52 AM EDT 06/20/2025 1:59 AM EDT Phillip Clark MD LAB BLOOD ORDERABLES Final R esult Performing Organization Address City/[facility] Co de Phone Number [facility] [address] [place] [address] * Phosphorus (06/20/2025 1:52 AM EDT) Only the most recent of8 resultswithin the time period is included. Phosphorus, Plasma 2.8 2.5 - 4.5 mg/dL 06/20/2025 2:23 AM EDT [facility] Blood Venous blood specimen / Unknown Venipuncture / Unknown 06/20/2025 1:52 AM EDT 06/20/2025 1:59 AM EDT Phillip Clark MD LAB BLOOD ORDERABLES Final R esult Performing Organization Address [facility] Co de Phone Number [facility] [address] [place] [address] * Magnesium (06/20/2025 1:52 AM EDT) Only the most recent of10 resultswithin the time period is included. Magnesium, Plasma 2.2 1.9 - 2.4 mg/dL 06/20/2025 2:23 AM EDT [facility] Blood Venous blood specimen / Unknown Venipuncture / Unknown 06/20/2025 1:52 AM EDT 06/20/2025 1:59 AM EDT Phillip Clark MD LAB BLOOD ORDERABLES Final R esult Performing Organization Address City/[facility] Co de Phone Number [facility] [address] [place] [address] * (ABNORMAL) Basic metabolic panel (06/20/2025 1:52 AM EDT) Only the most recent of9 resultswithin the time period is included. Glucose, Plasma 107(H) 74 - 99 mg/dL 06/20/2025 2:47 AM EDT [facility] BUN, Plasma 22 8 - 23 mg/dL 06/20/2025 2:47 AM EDT [facility] Creatinine, Plasma 0.85 0.70 - 1.20 mg/dL 06/20/2025 2:47 AM EDT [facility] BUN/Creatinine Ratio 26 06/20/2025 2:47 AM EDT [facility] Sodium, Plasma 131(L) 136 - 145 mmol/L 06/20/2025 2:47 AM EDT [facility] Potassium, Plasma 4.0 3.6 - 4.9 mmol/L 06/20/2025 2:47 AM EDT [facility] Chloride, Plasma 102 97 - 107 mmol/L 06/20/2025 2:47 AM EDT [facility] CO2, Plasma 24 22 - 29 mmol/L 06/20/2025 2:47 AM EDT [facility] Anion Gap 5(L) 6 - 16 mmol/L 06/20/2025 2:47 AM EDT [facility] Total Calcium, Plasma 7.9(L) 8.9 - 10.2 mg/dL 06/20/2025 2:47 AM EDT [facility] eGFRcr 94.1 mL/min/1.7 3m*2 06/20/2025 2:47 AM EDT [facility] Comment:Reported eGFRcr in m L/min/1.73m2 is based the CKD-EPI 2020 equation that does not use a race coefficient. Blood Venous blood specimen / Unknown Venipuncture / Unknown 06/20/2025 1:52 AM EDT 06/20/2025 1:59 AM EDT us Phillip Clark MD LAB BLOOD ORDERABLES Final R esult [facility] [address] [place] [address] * PERIPHERAL IV (SMARTFORM LINK) (06/20/2025 1:47 [...] ECG Atrial Rate 85 BPM MUSE ECG NC Interval 176 ms MUSE ECG QRSD Interval 110 ms MUSE ECG QT Interval 402 ms MUSE ECG QTC Interval 478 ms MUSE ECG P [place] 43 degrees MUSE ECG R [place] -30 degrees MUSE ECG T Wave [place] 36 degrees MUSE ECG Diagnosis Poor data quality, interpretation may be adversely affected MUSE ECG Diagnosis Sinus rhythm with premature supraventricular complexes and with occasional premature ventricular complexes MUSE ECG Diagnosis Left axis deviation MUSE ECG Diagnosis Poor R-wave progression MUSE ECG Diagnosis Abnormal ECG MUSE ECG Diagnosis Recommend repeat ECG MUSE ECG Diagnosis MUSE ECG Diagnosis Confirmed by Aman Coe ([id number]) on 06/19/2025 1:33:10 PM MUSE ECG 06/19/2025 12:4 9 PM EDT 06/19/2025 1:33 PM EDT us Barbara Sosa PA ECG ORDERABLES Final Resul [...] - 99 mg/dL 06/16/2025 7:41 PM EDT [facility] BUN, Plasma 15 8 - 23 mg/dL 06/16/2025 7:41 PM EDT [facility] Creatinine, Plasma 0.79 0.70 - 1.20 mg/dL 06/16/2025 7:41 PM EDT [facility] BUN/Creatinine Ratio 19 06/16/2025 7:41 PM EDT [facility] Sodium, Plasma 134(L) 136 - 145 mmol/L 06/16/2025 7:41 PM EDT [facility] Potassium, Plasma 3.8 3.6 - 4.9 mmol/L 06/16/2025 7:41 PM EDT [facility] Chloride, Plasma 98 97 - 107 mmol/L 06/16/2025 7:41 PM EDT [facility] CO2, Plasma 25 22 - 29 mmol/L 06/16/2025 7:41 PM EDT [facility] Anion Gap 11 6 - 16 mmol/L 06/16/2025 7:41 PM EDT [facility] Total Calcium, Plasma 8.4(L) 8.9 - 10.2 mg/dL 06/16/2025 7:41 PM EDT [facility] Phosphorus, Plasma 2.2(L) 2.5 - 4.5 mg/dL 06/16/2025 7:41 PM EDT [facility] Albumin, Plasma 3.4(L) 3.5 - 5.2 g/dL 06/16/2025 7:41 PM EDT [facility] eGFRcr 96.2 mL/min/1.7 3m*2 06/16/2025 7:41 PM EDT [facility] Comment:Reported eGFRcr in m L/min/1.73m2 is based the CKD-EPI 2020 equation that does not use a race coefficient. Blood Venous blood specimen / Unknown Venipuncture / Unknown 06/16/2025 5:35 PM EDT 06/16/2025 7:12 PM EDT Phillip Clark MD LAB BLOOD ORDERABLES Final R esult Performing Organization Address City/State/[facility] Co de Phone Number [facility] [address] [place] [address] * NC CRITICAL CARE, E/M 30-74 MINUTES (06/16/2025 9:58 [...] for testing. Comment 06/16/2025 8:45 AM EDT [facility] Senior Copywriter ID Fariba Blanton [id number] 8:45 AM EDT [facility] Device ID [id number] 06/16/2025 8:45 AM EDT [facility] Specimen Type POC Arterial 06/16/2025 8:45 AM EDT [facility] Blood Arterial blood specimen / Unknown 06/16/2025 8:40 AM EDT 06/16/2025 8:45 AM EDT us Phillip Clark MD LAB POINT OF CARE TE ST DOCKED DEVICE UNSOLICITED RESULTS Final Result [facility] [address] [place] [address] * XR Abdomen 1 View (06/16/2025 1:20 [...] LAB HEMATOLOGY METHOD 06/16/2025 12:58 AM EDT [facility] pCO2, Arterial 41 32 - 45 mmHg LAB HEMATOLOGY METHOD 06/16/2025 12:58 AM EDT [facility] pO2, Arterial 65(L) >80 mmHg LAB HEMATOLOGY METHOD 06/16/2025 12:58 AM EDT [facility] SO2, Measured, Arterial 94 94 - 98 % LAB HEMATOLOGY METHOD 06/16/2025 12:58 AM EDT [facility] Base Excess, Arterial 2.5 -2.0 - 3.0 mmol/L LAB HEMATOLOGY METHOD 06/16/2025 12:58 AM EDT [facility] Bicarbonate, Calculated, Arterial 27(H) 22 - 26 mmol/L LAB HEMATOLOGY METHOD 06/16/2025 12:58 AM EDT [facility] Hematocrit, Whole Blood 37.9(L) 40.0 - 51.0 % LAB HEMATOLOGY METHOD 06/16/2025 12:58 AM EDT [facility] Sodium, Whole Blood 133(L) 136 - 145 mmol/L LAB HEMATOLOGY METHOD 06/16/2025 12:58 AM EDT [facility] Potassium, Whole Blood 3.4(L) 3.6 - 4.9 mmol/L LAB HEMATOLOGY METHOD 06/16/2025 12:58 AM EDT [facility] Chloride, Whole Blood 100 97 - 107 mmol/L LAB HEMATOLOGY METHOD 06/16/2025 12:58 AM EDT [facility] Glucose, Whole Blood 124(H) 74 - 99 mg/dL LAB HEMATOLOGY METHOD 06/16/2025 12:58 AM EDT [facility] Ionized Calcium, Whole Blood 4.3(L) 4.6 - 5.1 mg/dL LAB HEMATOLOGY METHOD 06/16/2025 12:58 AM EDT [facility] Lactate, Arterial, Whole Blood 1.0 0.5 - 1.6 mmol/L LAB HEMATOLOGY METHOD 06/16/2025 12:58 AM EDT [facility] Blood Arterial blood specimen / Unknown Arterial Puncture / Unknown 06/16/2025 12:36 AM EDT 06/16/2025 12:55 AM EDT us Phillip Clark MD LAB BLOOD ORDERABLES Final R esult [facility] [address] [place] [address] * NC CRITICAL CARE, E/M 30-74 MINUTES (06/15/2025 9:19 [...] CBC and Differential (06/15/2025 8:18 AM EDT) [facility] Signature WBC Count 12.56(H) 3.70 - 10.30 10*3/uL LAB HEMATOLOGY METHOD 06/15/2025 8:47 AM EDT [facility] RBC Count 4.60 4.60 - 6.10 10*6/uL LAB HEMATOLOGY METHOD 06/15/2025 8:47 AM EDT [facility] HGB 12.8(L) 13.7 - 17.5 g/dL LAB HEMATOLOGY METHOD 06/15/2025 8:47 AM EDT [facility] HCT 39.4(L) 40.0 - 51.0 % LAB HEMATOLOGY METHOD 06/15/2025 8:47 AM EDT [facility] Platelet Count 120(L) 155 - 369 10*3/uL LAB HEMATOLOGY METHOD 06/15/2025 8:47 AM EDT [facility] MCV 86 79 - 98 fL LAB HEMATOLOGY METHOD 06/15/2025 8:47 AM EDT [facility] MCH 27.8 26.0 - 32.0 pg LAB HEMATOLOGY METHOD 06/15/2025 8:47 AM EDT [facility] MCHC 32.5 30.7 - 35.5 g/dL LAB HEMATOLOGY METHOD 06/15/2025 8:47 AM EDT [facility] RDW 15.5(H) 11.5 - 14.5 % LAB HEMATOLOGY METHOD 06/15/2025 8:47 AM EDT [facility] MPV 10.6 8.8 - 12.5 fL LAB HEMATOLOGY METHOD 06/15/2025 8:47 AM EDT [facility] nRBC 0.0 <=0.0 per 100 WBCs LAB HEMATOLOGY METHOD 06/15/2025 8:47 AM EDT [facility] Differential Type Automated LAB HEMATOLOGY METHOD 06/15/2025 8:47 AM EDT [facility] Neutrophils % 84 % LAB HEMATOLOGY METHOD 06/15/2025 8:47 AM EDT [facility] Lymphocytes % 5 % LAB HEMATOLOGY METHOD 06/15/2025 8:47 AM EDT [facility] Monocytes % 10 % LAB HEMATOLOGY METHOD 06/15/2025 8:47 AM EDT [facility] Eosinophils % 0 % LAB HEMATOLOGY METHOD 06/15/2025 8:47 AM EDT [facility] Basophils % 0 % LAB HEMATOLOGY METHOD 06/15/2025 8:47 AM EDT [facility] Immature Granulocytes % 1 % LAB HEMATOLOGY METHOD 06/15/2025 8:47 AM EDT [facility] Neutrophils Absolute 10.59(H) 1.60 - 6.10 10*3/uL LAB HEMATOLOGY METHOD 06/15/2025 8:47 AM EDT [facility] Lymphocytes Absolute 0.60(L) 1.20 - 3.90 10*3/uL LAB HEMATOLOGY METHOD 06/15/2025 8:47 AM EDT [facility] Monocytes Absolute 1.29(H) 0.30 - 0.90 10*3/uL LAB HEMATOLOGY METHOD 06/15/2025 8:47 AM EDT [facility] Eosinophils Absolute 0.00 0.00 - 0.50 10*3/uL LAB HEMATOLOGY METHOD 06/15/2025 8:47 AM EDT [facility] Basophils Absolute 0.02 0.00 - 0.10 10*3/uL LAB HEMATOLOGY METHOD 06/15/2025 8:47 AM EDT [facility] Immature Granulocytes Absolute 0.06 0.00 - 0.06 10*3/uL LAB HEMATOLOGY METHOD 06/15/2025 8:47 AM EDT [facility] Blood Venous blood specimen / Unknown Venipuncture / Unknown 06/15/2025 8:18 AM EDT 06/15/2025 8:34 AM EDT Narrative [facility] - 06/15/2025 8:47 AM EDT Therapeutic decision making should be based on absolute values, rather than percentages. us Phillip Clark MD LAB BLOOD ORDERABLES Final R esult Performing Organization Address [facility] Co de Phone Number [facility] [address] [place] [address] * Ionized calcium, whole blood (06/15/2025 6:40 AM EDT) Ionized Calcium, Whole Blood 4.6 4.6 - 5.1 mg/dL LAB HEMATOLOGY METHOD 06/15/2025 6:50 AM EDT [facility] Blood Arterial blood specimen / Unknown Venipuncture / Unknown 06/15/2025 6:40 AM EDT 06/15/2025 6:48 AM EDT Phillip Clark MD LAB BLOOD ORDERABLES Final R esult Performing Organization Address [facility] [place] [address] * NC CRITICAL CARE, ADDL 30 MIN, NC CRITICAL CARE, ADDL 30 MIN (06/15/2025 12:21 [...] LAB HEMATOLOGY METHOD 06/15/2025 8:17 AM EDT [facility] Neutrophils % 85 % LAB HEMATOLOGY METHOD 06/15/2025 8:17 AM EDT [facility] Lymphocytes % 4 % LAB HEMATOLOGY METHOD 06/15/2025 8:17 AM EDT [facility] Monocytes % 10 % LAB HEMATOLOGY METHOD 06/15/2025 8:17 AM EDT [facility] Eosinophils % 0 % LAB HEMATOLOGY METHOD 06/15/2025 8:17 AM EDT [facility] Basophils % 0 % LAB HEMATOLOGY METHOD 06/15/2025 8:17 AM EDT [facility] Immature Granulocytes % 1 % LAB HEMATOLOGY METHOD 06/15/2025 8:17 AM EDT [facility] Immature Granulocytes Absolute 0.05 0.00 - 0.06 10*3/uL LAB HEMATOLOGY METHOD 06/15/2025 8:17 AM EDT [facility] Neutrophils Absolute 9.28(H) 1.60 - 6.10 10*3/uL LAB HEMATOLOGY METHOD 06/15/2025 8:17 AM EDT [facility] Lymphocytes Absolute 0.45(L) 1.20 - 3.90 10*3/uL LAB HEMATOLOGY METHOD 06/15/2025 8:17 AM EDT [facility] Monocytes Absolute 1.14(H) 0.30 - 0.90 10*3/uL LAB HEMATOLOGY METHOD 06/15/2025 8:17 AM EDT [facility] Basophils Absolute 0.02 0.00 - 0.10 10*3/uL LAB HEMATOLOGY METHOD 06/15/2025 8:17 AM EDT [facility] Eosinophils Absolute 0.00 0.00 - 0.50 10*3/uL LAB HEMATOLOGY METHOD 06/15/2025 8:17 AM EDT [facility] Blood Venous blood specimen / Unknown Venipuncture / Unknown 06/15/2025 12:20 AM EDT 06/15/2025 12:26 AM EDT Phillip Clark MD LAB BLOOD ORDERABLES Final R esult Performing Organization Address City/[facility]/ZIP Co de Phone Number [facility] [address] [place] [address] * (ABNORMAL) Hemoglobin (06/15/2025 12:20 AM EDT) Only the most recent of2 resultswithin the time period is included. HGB 13.6(L) 13.7 - 17.5 g/dL LAB HEMATOLOGY METHOD 06/15/2025 12:36 AM EDT [facility] Blood Venous blood specimen / Unknown Venipuncture / Unknown 06/15/2025 12:20 AM EDT 06/15/2025 12:26 AM EDT Phillip Clark MD LAB BLOOD ORDERABLES Final R esult Performing Organization Address City/[facility]/ZIP Co de Phone Number [facility] [address] [place] [address] * Hematocrit (06/15/2025 12:20 AM EDT) Only the most recent of2 resultswithin the time period is included. HCT 41.0 40.0 - 51.0 % LAB HEMATOLOGY METHOD 06/15/2025 12:36 AM EDT [facility] Blood Venous blood specimen / Unknown Venipuncture / Unknown 06/15/2025 12:20 AM EDT 06/15/2025 12:26 AM EDT Phillip Clark MD LAB BLOOD ORDERABLES Final R esult [facility] [address] [place] [address] * Potassium, Plasma (06/15/2025 12:20 AM EDT) Only the most recent of3 resultswithin the time period is included. Potassium, Plasma 4.5 3.6 - 4.9 mmol/L 06/15/2025 12:51 AM EDT [facility] Blood Venous blood specimen / Unknown Venipuncture / Unknown 06/15/2025 12:20 AM EDT 06/15/2025 12:26 AM EDT us Phillip Clark MD LAB BLOOD ORDERABLES Final R esult [facility] [address] [place] [address] * NC CRITICAL CARE, E/M 30-74 MINUTES (06/14/2025 5:35 [...] LAB HEMATOLOGY METHOD 06/14/2025 3:24 PM EDT [facility] pCO2, Mixed Venous 47 40 - 55 mmHg LAB HEMATOLOGY METHOD 06/14/2025 3:24 PM EDT [facility] pO2, Mixed Venous 54(H) 25 - 40 mmHg LAB HEMATOLOGY METHOD 06/14/2025 3:24 PM EDT [facility] SO2, Measured, Mixed Venous 84(H) 65 - 80 % LAB HEMATOLOGY METHOD 06/14/2025 3:24 PM EDT [facility] Bicarbonate, Calculated, Mixed Venous 22 22 - 26 mmol/L LAB HEMATOLOGY METHOD 06/14/2025 3:24 PM EDT [facility] Base Excess, Mixed Venous -4.7(L) -2.0 - 3.0 mmol/L LAB HEMATOLOGY METHOD 06/14/2025 3:24 PM EDT [facility] Hematocrit, Whole Blood 43.0 40.0 - 51.0 % LAB HEMATOLOGY METHOD 06/14/2025 3:24 PM EDT [facility] Sodium, Whole Blood 139 136 - 145 mmol/L LAB HEMATOLOGY METHOD 06/14/2025 3:24 PM EDT [facility] Potassium, Whole Blood 3.7 3.6 - 4.9 mmol/L LAB HEMATOLOGY METHOD 06/14/2025 3:24 PM EDT [facility] Chloride, Whole Blood 110(H) 97 - 107 mmol/L LAB HEMATOLOGY METHOD 06/14/2025 3:24 PM EDT [facility] Ionized Calcium, Whole Blood 4.6 4.6 - 5.1 mg/dL LAB HEMATOLOGY METHOD 06/14/2025 3:24 PM EDT [facility] Glucose, Whole Blood 149(H) 74 - 99 mg/dL LAB HEMATOLOGY METHOD 06/14/2025 3:24 PM EDT [facility] Oxyhemoglobin, Mixed Venous, Whole Blood 81.9(H) 40.0 - 70.0 % LAB HEMATOLOGY METHOD 06/14/2025 3:24 PM EDT [facility] Hemoglobin Reduced, Mixed Venous, Whole Blood 16.1 % LAB HEMATOLOGY METHOD 06/14/2025 3:24 PM EDT [facility] Total Hemoglobin, Mixed Venous, Whole Blood 14.0 13.7 - 17.5 g/dL LAB HEMATOLOGY METHOD 06/14/2025 3:24 PM EDT [facility] Blood Mixed venous blood specimen / Unknown Venipuncture / Unknown 06/14/2025 3:00 PM EDT 06/14/2025 3:23 PM EDT Phillip Clark MD LAB BLOOD ORDERABLES Final R esult Performing Organization Address [facility] [place] [address] * Eli auris Surveillance by PCR (06/14/2025 2:37 PM EDT) Eli auris PCR Result Not Detected Not Detected 06/15/2025 12:46 PM EDT [facility] Swab (Axilla and Groin) Non-blood Collection / Unknown 06/14/2025 2:37 PM EDT 06/14/2025 3:10 PM EDT Narrative [facility] - 06/15/2025 12:46 PM EDT This PCR assay was developed and its performance characteristics determined by [facility] as appropriate for clinical purposes. This assay has not been cleared or approved by the FDA, but is performed in a CLIA regulated laboratory that is qualified to perform high-complexity testing. Phillip Clark MD LAB MICROBIOLOGY - GENERAL O RDERABLES Final Result Performing Organization Address [facility] [place] [address] * Multi Drug Resistance Test (06/14/2025 2:37 PM EDT) Culture No growth at day 1 06/15/2025 4:03 PM EDT [facility] Swab (Nares and Smita Rectal) Non-blood Collection / Unknown 06/14/2025 2:37 PM EDT 06/14/2025 3:10 PM EDT Narrative [facility] - 06/15/2025 4:03 PM EDT This test was developed and its performance characteristics determined by the [facility]. Although the media is FDA-approved, it is not FDA-approved for all specimen types submitted. The FDA has determined that such clearance or approval is not necessary. This test is used for surveillance purposes. It should not be regarded as investigational or for research. The [facility] is certified under the Clinical Laboratory Improvement Amendments of 1988 (CLIA-88) as qualified to perform high complexity clinical laboratory testing. Phillip Clark MD LAB MICROBIOLOGY - GENERAL O RDERABLES Final Result Performing Organization Address [facility] [place] [address] * APTT (06/14/2025 2:36 PM EDT) Only the most recent of2 resultswithin the time period is included. 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 ox Anesthesia block type: [...] g/dL 06/14/2025 2:02 PM EDT [facility] Hematocrit, Arterial 44.0 40 - 51.0 % 06/14/2025 2:02 PM EDT [facility] Sodium, Arterial 136 136 - 145 mmol/L 06/14/2025 2:02 PM EDT [facility] Potassium, Arterial 3.4(L) 3.6 - 4.9 mmol/L 06/14/2025 2:02 PM EDT [facility] Chloride, Whole Blood 105 97 - 107 mmol/L 06/14/2025 2:02 PM EDT [facility] Glucose, Arterial 138(H) 74 - 99 mg/dL 06/14/2025 2:02 PM EDT [facility] Ionized Calcium, Arterial 4.9 4.6 - 5.1 mg/dL 06/14/2025 2:02 PM EDT [facility] Lactate, Arterial 4.2(H) 0.5 - 1.6 mmol/L 06/14/2025 2:02 PM EDT [facility] Body Temperature 37.0 Celsius 06/14/2025 2:02 PM EDT [facility] pH, Temp Corrected, Arterial 7.35 7.31 - 7.42 06/14/2025 2:02 PM EDT [facility] pCO2, Temp Corrected, Arterial 38 32 - 45 mm Hg 06/14/2025 2:02 PM EDT [facility] pO2, Temp Corrected, Arterial 376 >80 mm Hg 06/14/2025 2:02 PM EDT [facility] Senior Copywriter ID Ricki Zamarripa 06/14/2025 2:02 PM EDT [facility] Blood Whole blood specimen / Unknown 06/14/2025 2:00 PM EDT 06/14/2025 2:02 PM EDT us Phillip Clark MD LAB POINT OF CARE TE ST DOCKED DEVICE UNSOLICITED RESULTS Final Result [facility] [address] [place] [address] * POCT ACT (06/14/2025 12:43 PM EDT) Only the most recent of7 resultswithin the time period is included. ACT+ (HIGH RANGE) 98 68 - 600 Seconds 06/14/2025 12:49 PM EDT [facility] Senior Copywriter ID Vick Dupont 06/14/2025 12:49 PM EDT [facility] ACT Device ID [id number] 06/14/2025 12:49 PM EDT [facility] Comment 06/14/2025 12:49 PM EDT [facility] Comment: ACT performed by [...] UNSOLICITED RESULTS Final Result [facility] [address] LAB [address] [place] [address] * (ABNORMAL) QPLUS (06/14/2025 11:55 AM EDT) [...] Seconds 06/14/2025 12:12 PM EDT [facility] Senior Copywriter ID Ricki Zamarripa 06/14/2025 12:12 PM EDT [facility] Device ID [id number] 06/14/2025 12:12 PM EDT [facility] Whole Blood 06/14/2025 11:5 5 AM EDT 06/14/2025 12:12 PM EDT Narrative [facility] - 06/14/2025 12:[address]: No Clot Detected us Phillip Clark MD LAB POINT OF CARE TE ST DOCKED DEVICE UNSOLICITED RESULTS Final Result [facility] [address] [place] [address] * Surgical Pathology Exam (06/14/2025 10:18 AM EDT) Case Report Surgical Pathology Case: [id number] Authorizing Provider: Phillip Clark MD Collected: 06/14/2025 1018 Ordering Location: [facility] A OPERATING ROOM Received: 06/14/2025 1413 Pathologist: Beth Lake MD Specimen: Heart, aortic valve leaflets 06/15/2025 11:44 AM EDT [facility] Final Diagnosis A. AORTIC VALVE LEAFLETS, REPLACEMENT: - FIBROSIS AND MYXOID DEGENERATION. 06/15/2025 11:44 AM EDT [facility] at 1144 EDT Clinical Information Severe aortic regurgitation [I35.1] 06/15/2025 11:44 AM EDT [facility] Gross Description A. AORTIC VALVE LEAFLETS Received fresh and placed in formalin labeled aortic valve leaflets are 2 white-montez soft cardiac leaflets ranging in size from 2.5-4.0 cm in greatest dimension. Cnc Manager sections are submitted in cassette A1. Cold Time: 3h 55m April Santos 06/15/2025 11:44 AM EDT [facility] Tissue Heart structure / Unknown 06/14/2025 10:18 AM EDT 06/14/2025 2:13 PM EDT Comment:Pre-op diagnosis: Severe aortic regurgitation [I35.1] us Phillip Clark MD LAB PATHOLOGY ORDERABLES Fin al Result [facility] [address] [place] [address] * NC AN CENTRAL LINE DOUBLE LUMEN, PB ANESTHESIA NON-TIMED PROCEDURE PLACEHOLDER, ANESTHESIA ULTRASOUND GUIDED, NC INSERT/PLACE FLOW DIRECT CATH, PB POINT OF [...] MD ANESTHESIA ORDERABLES Final Resu lt * NC AN ELECTIVE ENDOTRACHEAL AIRWAY, PB ANESTHESIA PLACEHOLDER [...] ORDERABL ES Final Result Performing Organization Address City/State/[facility] Co de Phone Number BLOOD BANK [address] [place] [address], [place] * Type & Screen, 30 Days [...] ES Final Result Performing Organization Address [facility]/State/ZIP Co de Phone Number BLOOD BANK [address] * (ABNORMAL) Hemoglobin A1c (06/09/2025 1:39 PM EDT) Hemoglobin A1c 5.7(H) <5.7 % 06/09/2025 6:09 PM EDT [facility] Blood Venous blood specimen / Unknown Venipuncture / Unknown 06/09/2025 1:39 PM EDT 06/09/2025 1:40 PM EDT Narrative [facility] - 06/09/2025 6:09 PM EDT HA1C Interpretive Data: Diagnosis of Diabetes: Diabetic > or = 6.5% Pre-diabetic 5.7 to 6.4% Non-diabetic < or = 5.6% Glycemic Targets for Type I and Type II Diabetics: Non- Adults <7.0% Adults <6.0% Children and Adolescents <7.5% Source: [place] [employer]. Standards of medical care in diabetes,2017. Diabetes Care.2017:40 (suppl 1):S1-S135. us Phillip Clark MD LAB BLOOD ORDERABLES Final R esult [facility] [address] [place] [address] * Comprehensive Metabolic Panel, Plasma (06/09/2025 1:39 PM EDT) Glucose, Plasma 86 74 - 99 mg/dL 06/09/2025 3:57 PM EDT [facility] BUN, Plasma 15 8 - 23 mg/dL 06/09/2025 3:57 PM EDT [facility] Creatinine, Plasma 0.85 0.70 - 1.20 mg/dL 06/09/2025 3:57 PM EDT [facility] BUN/Creatinine Ratio 18 06/09/2025 3:57 PM EDT [facility] Sodium, Plasma 139 136 - 145 mmol/L 06/09/2025 3:57 PM EDT [facility] Potassium, Plasma 4.7 3.6 - 4.9 mmol/L 06/09/2025 3:57 PM EDT [facility] Chloride, Plasma 107 97 - 107 mmol/L 06/09/2025 3:57 PM EDT [facility] CO2, Plasma 24 22 - 29 mmol/L 06/09/2025 3:57 PM EDT [facility] Anion Gap 8 6 - 16 mmol/L 06/09/2025 3:57 PM EDT [facility] Total Calcium, Plasma 9.0 8.9 - 10.2 mg/dL 06/09/2025 3:57 PM EDT [facility] Total Protein 6.6 6.3 - 7.9 g/dL 06/09/2025 3:57 PM EDT [facility] Albumin, Plasma 4.2 3.5 - 5.2 g/dL 06/09/2025 3:57 PM EDT [facility] AST, Plasma 23 10 - 50 U/L 06/09/2025 3:57 PM EDT [facility] ALT, Plasma 23 10 - 50 U/L 06/09/2025 3:57 PM EDT [facility] Alkaline Phosphatase, Plasma 66 40 - 115 U/L 06/09/2025 3:57 PM EDT [facility] Total Bilirubin, Plasma 0.8 0.2 - 1.1 mg/dL 06/09/2025 3:57 PM EDT [facility] eGFRcr 94.1 mL/min/1.7 3m*2 06/09/2025 3:57 PM EDT [facility] Comment:Reported eGFRcr in m L/min/1.73m2 is based the CKD-EPI 2020 equation that does not use a race coefficient. Blood Venous blood specimen / Unknown Venipuncture / Unknown 06/09/2025 1:39 PM EDT 06/09/2025 1:40 PM EDT us Phillip Clark MD LAB BLOOD ORDERABLES Final R esult [facility] [address] [place] [address] * CT Chest wo IV Contrast (04/14/2025 [...] Resu lt from Last 3 Months Insurance [facility] MEDICARE Advance Directives * Full Code (Latest Code Status on File) Date Activated Date Inactivated Comments 06/14/2025 2:35 PM 06/20/2025 4:27 PM Question Answer Comments I have reviewed the capacity from the link above and, if needed, have updated to appropriate status: Yes Care Teams Licensed Loan Officer Assistant Relationship Specialty Start Date End Date Kamran Singh MD [address] [place] [address] PCP - General 02/28/25
--- NOTE | 2025-07-01 09:00 | CA_ITS ---
APPROVED REPORT EXAM: Limited 2D Echocardiogram Application Packaging Specialist: Snow Robertson CRT Ht: 5 ft 7 in Wt: 187lbs BSA: 1.97 BP: 138/74 mmHg Indications: Pericardial effusion check s/p AVR 06/14/25 Other Information Study Quality: Fair Conclusion This is a limited TTE to evaluate for pericardial effusion. Limited windows are obtained. The left ventricle is normal in size. There is increased LV wall thickness. There is mild global hypokinesis present. LVEF is 45%. There is a moderate-sized, circumferential pericardial effusion present. The largest pocket measures 1.2 cm in diastole and is noted posteriorly. The IVC is not well visualized. There is no evidence of chamber collapse. There is no clear evidence of tamponade on echo. Further evaluation with serial TTEs may be suggested. Clinical correlation is required. Electronically signed by : Ronit Simms MD 07/01/2025 23:29:34
[2025-07-01 10:33] LABS: Hematocrit 38.1 % (42.0-52.0); Hemoglobin 11.8 g/dL (14.1-18.0); Immature Granulocytes % 0.8 %; Mean Corpuscular HGB Conc 31.0 g/dL (31.8-35.4); Mean Corpuscular Hemoglobin 27.0 pg (27.0-31.2); Mean Corpuscular Volume 87.2 fl (80-94); Nucleated Red Blood Cells % 0 %; Platelet Count 569 K/mm3 (142-424); Red Blood Count 4.37 M/mm3 (4.60-6.20); Red Cell Distribution Width-SD 48.6 fL; White Blood Count 8.7 K/mm3 (4.8-10.8)
[2025-07-01 10:42] LABS: Activated Partial Thrombo Time 41.2 seconds (22.8-30.6); INR 2.14 (0.9-1.1); Prothrombin Time 22.5 seconds (10.1-12.5)
[2025-07-01 11:30] LABS: Albumin Level 4.9 g/dl (3.5-5.0); Chloride 95 mmol/L (98-107); Potassium 4.3 mmoL/L (3.5-5.1); Sodium 131 mmol/L (136-145)
[2025-07-01 11:32] LABS: Bilirubin,Unconjugated 1.0 mg/dL (0.0-1.1); Blood Urea Nitrogen 16 mg/dl (9-20); Creatinine,Serum 0.90 mg/dl (0.66-1.25); Estimated Glomerular Filt Rate 84 ml/min (>60); GFR (African American) 101 ML/MIN (>60)
[2025-07-01 11:33] LABS: Alanine Aminotransferase 116 U/L (12-78); Alkaline Phosphatase 127 U/L (38-126); Anion Gap 10.3 mEq/L (5-15); Aspartate Amino Transferase 48 U/L (17-59); Bilirubin,Direct 0.0 mg/dl (0.0-0.4); Bilirubin,Indirect 0.8 mg/dL (0.0-0.9); Bilirubin,Total 0.8 mg/dl (0.2-1.3); Calcium 9.2 mg/dl (8.4-10.2); Carbon Dioxide 30 mmol/L (22.0-30.0); Cholesterol 94 mg/dl (140-200); Glucose 86 mg/dl (74-100); Magnesium 2.1 mg/dl (1.6-2.3); Total Protein,Serum 7.0 g/dl (6.3-8.2); Triglycerides 152 mg/dl (30-150)
[2025-07-01 11:34] LABS: HDL Cholesterol 41 mg/dl (40-60)
[2025-07-01 11:55] LABS: Free T4 (Free Thyroxine) 1.26 ng/dl (0.78-2.19)
[2025-07-01 12:04] LABS: Thyroid Stimulating Hormone 2.57 uIU/mL (0.465-4.68)
== END 2025-07-01 23:59 | disposition home or self-care (01) ==
PROVIDERS: Physician Assistant; PCP Family Medicine; Visit Provider Nurse Practitioner
DX: I31.39 Other pericardial effusion (noninflammatory) (principal); I11.0 Hypertensive heart disease with heart failure; I50.40 Unspecified combined systolic (congestive) and diastolic (congestive) heart failure; I25.10 Atherosclerotic heart disease of native coronary artery without angina pectoris; E78.5 Hyperlipidemia, unspecified; I72.9 Aneurysm of unspecified site; Z95.5 Presence of coronary angioplasty implant and graft; R93.1 Abnormal findings on diagnostic imaging of heart and coronary circulation
CPT/HCPCS: 36415; 80048; 80061; 80076; 83735; 84439; 84443; 85025; 85610; 85730; 93308

== ENCOUNTER 2025-07-05 07:57 | Outpatient (CLI) | payer BC, MEDICARE, SELFPAY ==
--- OUTSIDE RECORDS SUMMARY | 2025-06-07 07:30 | XMS_ITS | Encounter Summary ---
Author Organization [facility] Address [address] [place] [address] Care Team Providers Care Seconds Inspector Name Role Phone Kamran Singh MD Primary Care Provider +1- [phone] Encounter Details Date Type Department Care Team (Late st Contact Info) Description 06/07/2025 8:30 AM EDT Pre-Admission Testing [place] [facility] [address], [address] [place] [address] Social History Tobacco Use Types Packs/Day Years Used Date Smoking Tobacco: Never Smokeless Tobacco: Never Alcohol Use Standard Drinks/Week Comments Not Currently 0 (1 standard drink = 0.6 oz pur e alcohol) rarely PHQ-2 Answer Date Recorded Patient Health Questionnaire-2 Score 0 03/10/2025 Humiliation, Afraid, Rape, and Kick questionnair e Answer Date Recorded Within the last year, have y ou been afraid of your partner or ex-partner? No 06/15/2025 Within the last year, have y ou been humiliated or emotionally abused in other ways by your partner or ex-partner? No Within the last year, have y ou been kicked, hit, slapped, or otherwise physically hurt by your partner or ex-partner? No 06/15/2025 Within the last year, have y ou been raped or forced to have any kind of sexual activity by your partner or ex-partner? No 06/15/2025 AUDIT-C Answer Date Recorded Q1: How often do you have a drink containing alcohol? Never 03/10/2025 Q2: How many drinks containi ng alcohol do you have on a typical day when you are drinking? Patient does not drink Q3: How often do you have si x or more drinks on one occasion? Never 03/10/2025 Hunger Vital Sign Answer Date Recorded Within the past 12 months, y ou worried that your food would run out before you got the money to buy more. Never true 06/15/20 25 Within the past 12 months, t he food you bought just didn't last and you didn't have money to get more. Never true 06/15/2025 PRAPARE - Transportation Answer Date Re corded In the past 12 months, has l ack of transportation kept you from medical appointments or from getting medications? No 06/01 In the past 12 months, has l ack of transportation kept you from meetings, work, or from getting things needed for daily living? No 06/15/2025 Housing Stability Vital Sign Answer Andre e Recorded In the last 12 months, was t here a time when you were not able to pay the mortgage or rent on time? No 06/15/2025 In the past 12 months, how m any times have you moved where you were living? 0 06/15/2025 At any time in the past [address] [facility], were you homeless or living in a residential (including now)? No 06/15/2025 [facility] Utilities Answer Date Recorded In the past 12 months has th e electric, gas, oil, or water company threatened to shut off services in your home? No 06/15/2025 Sex and Gender Information Value Date Recorded Sex Assigned at Not on file Legal Sex Male 7:47 PM EDT Gender Identity Not on file Sexual Orientation Not on file documented as of this encounter Miscellaneous Notes * PAT Evaluation Note - Kassi Collado PA - 06/07/2025 8:30 AM EDT Images from the original note were not included. HPI Bradley Forrest is a 69 y.o. male who presents with Pre-op Diagnosis * Severe aortic regurgitation [I35.1] now scheduled for AORTIC ROOT RECONSTRUCTION (N/A) with Phillip Clark MD on 06/14/2025 at [facility] under general anesthesia. aortic enlargement, measured as 4.0 cm. Since that visit he had a cardiac catheterization with Dr. Duvall in which he had 2 stents placed and a cardiac MRI revealed severe aortic regurgitation. Past Medical History[1] Family History[2] Social History[3] SURGICAL HISTORY: Surgical History[4] Allergies[5] MEDICATIONS: Current Medications[6] ROS Anesthesia: Date of last anesthetic: March 2025 for heart stent x2 Sometimes when waking up he feels that he can get anxious and be a little aggitated. history of previous anesthesia. Does not have a history of anesthetic complications and obstructivesleep apnea. Cardiovascular: CAD (x2 stents), a murmur and valvular heart disease. Does not have atrial fibrillation, CHF, dysrhythmias, hyperlipidemia, pacemaker or past [place]. hypertension: Exercise tolerance is 1 flight of stairs. Does not have chest pain. Cardio additional comments: Aortic aneurysm Aortic regurgitation Activity limited by SOB related to his heart.. Respiratory: Does not have home oxygen. asthma (childhood - resolved): no COPD: Has not had an upper respiratoryinfection in last 30 days. Has not had pneumonia in the last 30 days or COVID in the last 30 days. HEENT: missing teeth.Does not have chipped teeth. HEENT additional comments: 1 missing tooth upper left molar.. Neurological: no seizures: Did not have a cerebrovascular accident. Musculoskeletal: Does not have cervical spine limited mobility. Gastrointestinal: GERD: well controlled.Does not have cirrhosis. GI/ additional comments: Liver cyst as incidental finding? Genitourinary: Does not have chronic renal disease.Does not have renal disease. Hematological/Lymphatic: History of no DVT. History of no pulmonary embolism. Not in a hypercoagulable state. no history of chemotherapy no history of radiation Does not have HIV, MRSA or tuberculosis. Hem/Lymph ROS additional comments: ASA, clopidogrel Endocrine/Metabolic: diabetes mellitus type 2.well controlled. Does not have thyroid disorder. Endo/Met additional comments: No fasting glucose but at noon or evening glucose runs 90-120. TTE 04/25/25: LV EF 50-55%, LV is severely dilated, normal RV size and function, aortic valve possibly bicuspid, mod-severe aortic regurgitation, mild MR Cardiac Cath Results 04/14/2025: LM: angiographically normal LAD: 10% prox, 30% mid, luminal irregularities within D1 LCX: luminal irregularities RCA: 70% prox, 80% PLB. Successful stenting of RCA and PLB 03/08/25 Cardiac MRI: APTT on 10/04/24: 29.0 (H) Visit Vitals Smoking Status Never 05/05/2025 9:57 AM Vitals Systolic 143 Diastolic 63 Heart Rate 56 Weight (kg) 88.7 kg BMI 30.63 kg/m2 BSA (m2) 2.05 m2 Visit Report Report Physical Exam Anesthesia Plan ASA 4 Anesthesia technique(s) discussed with the patient/family: general Comment: SRI phone screen. Discussed with Dr. Armijo. Per surgery note: hold plavix after today (06/09/25), empaglifozin after 06/10 and losartan after 06/11 dose. He has already been holding his ibuprofen and rapatha. FRANK Barraza [1] Past Medical History: Diagnosis Date Cardiac murmur Hyperlipidemia Hypertension [2] Family History Problem Relation Name Age of Onset Diabetes type I Mother Coronary artery disease Father Hypertension Father Breast cancer Sister Skin cancer Maternal Grandmother Hypertension Other [3] Social History Tobacco Use Smoking status: Never Smokeless tobacco: Never Vaping Use Vaping status: Never Used Substance Use Topics Alcohol use: Never Drug use: Never [4] Past Surgical History: Procedure Laterality Date COLONOSCOPY KNEE SURGERY Right OTHER SURGICAL HISTORY N/A Knee arthroscopy from [facility] SHOULDER SURGERY Right [5] Allergies Allergen Reactions Seafood Hives Lisinopril Cough [6] Current Outpatient Medications: acetaminophen, Take 2 tablets by mouth every morning. Under [place] law, monthly prescriptions (30days) can be refilled at 25 days and three-month prescriptions (90 days) at 80 days. Please contactthe insurance company with questions if refills are denied. ASPIRIN, Chew 1 tablet daily. atenolol, Take 1 tablet by mouth daily. (Patient taking differently: Take 1 tablet by mouth daily. Takes bid) clopidogrel, Take 1 tablet by mouth daily. empagliflozin, Take 1 tablet by mouth daily. ezetimibe, Take 1 tablet by mouth daily. ibuprofen, Take 1 tablet by mouth daily. (Patient not taking: Reported on 05/05/2025) losartan, Take 1 tablet by mouth daily. (Patient taking differently: Take 2 tablets by mouth 2 times a day.) Repatha SureClick, Inject 1 mL under the skin every 14 days. rosuvastatin, Take 1 tablet by mouth daily. spironolactone, Take 1 tablet by mouth daily. * Preprocedure Instructions - Kassi Collado PA - 06/07/2025 8:30 AM EDT Home Medication Instructions Current Medications Medication Instructions acetaminophen (Tylenol) 325 MG tablet Take as needed ASPIRIN 81 MG chewable tablet Take morning of surgery atenolol (Tenormin) 25 MG tablet Take morning of surgery clopidogrel (Plavix) 75 MG tablet Make sure to get a plan from Dr. Clark at 06/09/25 visit. empagliflozin (Jardiance) 10 MG Hold 72 hours before surgery ezetimibe (Zetia) 10 MG tablet Take night before surgery losartan (Cozaar) 50 MG tablet Hold day of surgery Repatha SureClick 140 MG/ML solution auto-injector autoinjector Hold 14 days before surgery rosuvastatin (Crestor) 40 MG tablet Take night before surgery spironolactone (Aldactone) 25 MG tablet Hold day of surgery General Preoperative Instructions You will be called the business day before surgery with your arrival time No food after midnight the night before surgery. You can drink clear liquids up to 2 hours prior to arrival unless instructed by your surgeon otherwise. Please do not try to get all your hydration in 2 hours prior to arrival. Start the day before surgery drinking more than you usually would. After midnight, you can have clear liquids only (water,apple juice, Gatorade) up to 2 hours prior to arrival. No coffee or tea. No alcohol or smoking prior to surgery Arrive on time to avoid delays Parking/Registration procedure explained You MUST have a responsible adult available for transport to and from hospital Visitation policy for the day of surgery reviewed Bring insurance card, photo ID, along with power of workers compensation defense attorney, guardianship or advanced directives if applicable Do not bring money, jewelry or other valuables Hibiclens bathing instructions reviewed if applicable Notify surgeon of fever, illness, any changes or if you decide not to have surgery Diabetes Instructions (If applicable) Take diabetes medication as instructed You may have up to 4 ounces of apple juice 2 hours prior to arrival for surgery for low glucose documented in this encounter Plan of Treatment Upcoming Encounters Date Type Department Care Team (Late st Contact Info) Description 07/07/2025 1:40 PM EST Clinical Support [facility] [address] [place] [id number] 07/07/2025 2:40 PM EST Office Visit [facility] Cardiothoracic [address], [address] [place] [address] Phillip Clark MD [address] [place] [address] documented as of this encounter Visit Diagnoses Not on filedocumented in this encounter Additional Health Concerns Assessment Noted Time A fall risk assessment has been complete d for the patient 05/05/2025 9:58 AM EDT A Body Mass Index follow-up plan has been documented for the patient 05/05/2025 10:51 AM EDT documented as of this encounter Care Teams Seconds Inspector Relationship Specialty Start Date End Date Kamran Singh MD [address] [place] [address] PCP - General 02/28/25 documented as of this encounter
--- OUTSIDE RECORDS SUMMARY | 2025-06-09 11:20 | XMS_ITS | Encounter Summary ---
Author Organization [facility] Address [address] [id number] Care Team Providers Care Space Officer Name Role Phone Kamran Singh MD Primary Care Provider +1- [phone] Encounter Details Date Type Department Care Team (Latest Contact Info) Description 06/09/2025 12:20 PM EDT Office Visit [facility] [address], [address] [place] [address] Phillip Clark MD [address] [place] [address] Severe aortic regurgitation (Primary Dx) [...] Notes * Progress Notes - Lorelei Dominique, RIM TECHNICIAN - 06/09/2025 12:20 PM EDT Reason for [...] 2 tablets by mouth every morning. Under [employer] law, monthly prescriptions (30 days) can be refilled at 25 days and three-month prescriptions (90 days) at 80 days. Please contact the insurance company with questions if refills are denied. Patient taking differently: Take 2 tablets by mouth every 4 hours as needed. Under [employer] law, monthly prescriptions (30 days) can be [...] Description 07/07/2025 1:40 PM EST Clinical Support [facility] [address] [place] [address] 07/07/2025 2:40 PM EST Office Visit [facility] Cardiothoracic [address], [address] [place] [address] Phillip Clark MD [address] [place] [address] documented as of this encounter Results * [...] Kamran Arellano MD on 06/09/2025 4:00 PM Phillip Clark MD IMG XR PROCEDURES Final Resu lt * (ABNORMAL) CBC (06/09/2025 1:39 PM EDT) WBC Count 6.17 3.70 - 10.30 10*3/uL LAB HEMATOLOGY METHOD 06/09/2025 3:49 PM EDT [facility] RBC Count 5.62 4.60 - 6.10 10*6/uL LAB HEMATOLOGY METHOD 06/09/2025 3:49 PM EDT [facility] HGB 15.6 13.7 - 17.5 g/dL LAB HEMATOLOGY METHOD 06/09/2025 3:49 PM EDT [facility] HCT 49.2 40.0 - 51.0 % LAB HEMATOLOGY METHOD 06/09/2025 3:49 PM EDT [facility] Platelet Count 205 155 - 369 10*3/uL LAB HEMATOLOGY METHOD 06/09/2025 3:49 PM EDT [facility] MCV 88 79 - 98 fL LAB HEMATOLOGY METHOD 06/09/2025 3:49 PM EDT [facility] MCH 27.8 26.0 - 32.0 pg LAB HEMATOLOGY METHOD 06/09/2025 3:49 PM EDT [facility] MCHC 31.7 30.7 - 35.5 g/dL LAB HEMATOLOGY METHOD 06/09/2025 3:49 PM EDT [facility] RDW 15.3(H) 11.5 - 14.5 % LAB HEMATOLOGY METHOD 06/09/2025 3:49 PM EDT [facility] MPV 10.6 8.8 - 12.5 fL LAB HEMATOLOGY METHOD 06/09/2025 3:49 PM EDT [facility] nRBC 0.0 <=0.0 per 100 WBCs LAB HEMATOLOGY METHOD 06/09/2025 3:49 PM EDT [facility] Blood Venous blood specimen / Unknown Venipuncture / Unknown 06/09/2025 1:39 PM EDT 06/09/2025 1:40 PM EDT us Phillip Clark MD LAB BLOOD ORDERABLES Final R esult [facility] [address] [place] [address] * Comprehensive Metabolic Panel, Plasma (06/09/2025 1:39 PM EDT) Pathologist [facility] Glucose, Plasma 86 74 - 99 mg/dL 06/09/2025 3:57 PM EDT [facility] BUN, Plasma 15 8 - 23 mg/dL 06/09/2025 3:57 PM EDT [facility] Creatinine, Plasma 0.85 0.70 - 1.20 mg/dL 06/09/2025 3:57 PM EDT [facility] BUN/Creatinine Ratio 18 06/09/2025 3:57 PM EDT [facility] Sodium, Plasma 139 136 - 145 mmol/L 06/09/2025 3:57 PM EDT [facility] Potassium, Plasma 4.7 3.6 - 4.9 mmol/L 06/09/2025 3:57 PM EDT [facility] Chloride, Plasma 107 97 - 107 mmol/L 06/09/2025 3:57 PM EDT [facility] CO2, Plasma 24 22 - 29 mmol/L 06/09/2025 3:57 PM EDT [facility] Anion Gap 8 6 - 16 mmol/L 06/09/2025 3:57 PM EDT [facility] Total Calcium, Plasma 9.0 8.9 - 10.2 mg/dL 06/09/2025 3:57 PM EDT [facility] Total Protein 6.6 6.3 - 7.9 g/dL 06/09/2025 3:57 PM EDT [facility] Albumin, Plasma 4.2 3.5 - 5.2 g/dL 06/09/2025 3:57 PM EDT [facility] AST, Plasma 23 10 - 50 U/L 06/09/2025 3:57 PM EDT [facility] ALT, Plasma 23 10 - 50 U/L 06/09/2025 3:57 PM EDT [facility] Alkaline Phosphatase, Plasma 66 40 - 115 U/L 06/09/2025 3:57 PM EDT [facility] Total Bilirubin, Plasma 0.8 0.2 - 1.1 mg/dL 06/09/2025 3:57 PM EDT [facility] eGFRcr 94.1 mL/min/1.7 3m*2 06/09/2025 3:57 PM EDT [facility] Comment:Reported eGFRcr in m L/min/1.73m2 is based the CKD-EPI 2020 equation that does not use a race coefficient. Blood Venous blood specimen / Unknown Venipuncture / Unknown 06/09/2025 1:39 PM EDT 06/09/2025 1:40 PM EDT Phillip Clark MD LAB BLOOD ORDERABLES Final R esult Performing Organization Address [facility]/ZIP Co de Phone Number [facility] [address] [place] [address] * (ABNORMAL) Hemoglobin A1c (06/09/2025 1:39 PM EDT) Hemoglobin A1c 5.7(H) <5.7 % 06/09/2025 6:09 PM EDT [facility] Blood Venous blood specimen / Unknown Venipuncture / Unknown 06/09/2025 1:39 PM EDT 06/09/2025 1:40 PM EDT Narrative [facility] - 06/09/2025 6:09 PM EDT HA1C Interpretive Data: Diagnosis of Diabetes: Diabetic > or = 6.5% Pre-diabetic 5.7 to 6.4% Non-diabetic < or = 5.6% Glycemic Targets for Type I and Type II Diabetics: Non- Adults <7.0% Adults <6.0% Children and Adolescents <7.5% Source: [place] [employer]. Standards of medical care in diabetes,2017. Diabetes Care.2017:40 (suppl 1):S1-S135. Phillip Clark MD LAB BLOOD ORDERABLES Final R esult Performing Organization Address City/[facility] Co de Phone Number [facility] [address] [place] [address] * Protime-INR (06/09/2025 1:39 PM EDT) Prothrombin Time 13.6 12.0 - 14.3 sec LAB COAGULATION METHOD 06/09/2025 3:58 PM EDT [facility] INR 1.0 0.9 - 1.1 LAB COAGULATION METHOD 06/09/2025 3:58 PM EDT [facility] Blood Venous blood specimen / Unknown Venipuncture / Unknown 06/09/2025 1:39 PM EDT 06/09/2025 1:40 PM EDT Narrative [facility] - 06/09/2025 3:58 PM EDT OPTIMAL INR RANGES FOR PATIENT ON ORAL ANTICOAGULANT THERAPY Prevention of venous thromboembolism INR 2.0 to 3.0 In patients with heart disease: Atrial fibrillation INR 2.0 to 3.0 Valvular heart disease INR 2.0 to 3.0 Tissue heart valves INR 2.0 to 3.0 Mechanical prosthetic valves INR 2.5 to 3.5 Prevention of recurrent DC INR 2.5 to 3.5 Phillip Clark MD LAB BLOOD ORDERABLES Final R esult Performing Organization Address [facility] Co de Phone Number [facility] [address] [place] [address] * APTT (06/09/2025 1:39 PM EDT) aPTT 33 25 - 35 sec LAB COAGULATION METHOD 06/09/2025 3:58 PM EDT [facility] Blood Venous blood specimen / Unknown Venipuncture / Unknown 06/09/2025 1:39 PM EDT 06/09/2025 1:40 PM EDT Phillip Clark MD LAB BLOOD ORDERABLES Final R esult Performing Organization Address [facility] de Phone Number [facility] [address] [place] [address] * Type & Screen, 30 Days (06/09/2025 [...] ORDERABL ES Final Result BLOOD BANK [address] [place] [address], documented in this encounter Visit Diagnoses Diagnosis Severe aortic regurgitation- Primary Severe aortic regurgitation Ascending aortic aneurysm, unspecified whether ruptured (CMS/[facility])- Primary documented in this encounter Additional Health Concerns Assessment Noted Time A fall risk assessment has been complete d for the patient 06/09/2025 12:15 PM EDT A Body Mass Index follow-up plan has been documented for the patient 06/09/2025 2:00 PM EDT documented as of this encounter Care Teams Space Officer Relationship Specialty Start Date End Date Kamran Singh MD [address] [place] [address] PCP - General 02/28/25 documented as of this encounter
--- OUTSIDE RECORDS SUMMARY | 2025-06-09 12:42 | XMS_ITS | Encounter Summary ---
Author Organization [facility] Address [address] [place] [address] Care Team Providers Care Utility Service Worker Name Role Phone Kamran Singh MD Primary Care Provider [phone]- [phone] Encounter Details Date Type Department Care Team (Latest Contact Info) Description 06/09/2025 1:42 PM EDT - 06/09/2025 11:59 PM EDT Hospital Encounter [place] [facility] [address], 1[address] [place] [phone] Severe aortic regurgitation Discharge Disposition: Home or [...] any time in the past 12 m [facility], were you homeless or living in a retirement (including now)? No 06/15/2025 [facility] Utilities Answer Date Recorded In the [...] pain, headaches or fever. 100 tablet 06/20/2025 clopidogrel (Plavix) 75 MG tablet Take 1 tablet by mouth daily. 30 tablet 06/20/2025 07/20/20 25 empagliflozin (Jardiance) 10 MG Take 1 tablet [...] day. 60 tablet 2 06/20/2025 09/18/19 26 naloxone (Narcan) 4 mg/0.1 mL nasal spray 1. Give 1 spray in nostril for no/slow breathing or cannot wake after opioid use 2. Call 911 3. Repeat in other nostril if symptoms continue 1 each 06/20/2025 omeprazole (PriLOSEC) [address] capsule Take [...] then as directed. 60 tablet 11 06/20/2025 docusate sodium (Colace) 100 MG capsule Take 1 capsule by mouth 2 times a day for 10 days. Hold for loose stool 20 capsule 06/20/2025 06/30/20 potassium chloride CR (Klor-Con M20) 20 MEQ ER tablet Take 1 tablet by mouth daily for 3 days. Do not crush or chew. Take for 3 days only; to be taken with Lasix (furosemide) 40mg once daily for 3 days only. 3 tablet 06/20/2025 06/23/20 senna (Senokot) 8.6 MG tablet Take 2 [...] by mouth 2 times a day. 06/20/20 rosuvastatin (Crestor) 40 MG tablet Take 1 tablet by mouth daily. 06/20/20 spironolactone (Aldactone) 25 MG tablet Take 1 tablet by mouth daily. 06/20/20 documented as of this encounter Plan of Treatment Upcoming Encounters Date Type Department Care Team (Late st Contact Info) Description 07/07/2025 1:40 PM EST Clinical Support [facility] [address], [address] [place] [address] 07/07/2025 2:40 PM EST Office Visit [facility] Cardiothoracic [address], [address] [place] [address] Phillip Clark MD [address] [place] [address] documented as of this encounter Procedures Procedure [...] encounter Visit Diagnoses Diagnosis Severe aortic regurgitation Ascending aortic aneurysm, unspecified whether ruptured ([facility])- Primary documented in this encounter Additional Health Concerns Assessment Noted Time A fall risk assessment has been complete d for the patient 06/09/2025 12:15 PM EDT A Body Mass Index follow-up plan has been documented for the patient 06/09/2025 2:00 PM EDT documented as of this encounter Care Teams Utility Service Worker Relationship Specialty Start Date End Date Kamran Singh MD [address] [place] [address] PCP - General 02/28/25 documented as of this encounter
--- OUTSIDE RECORDS SUMMARY | 2025-06-14 04:18 | XMS_ITS | Encounter Summary ---
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 Name Role Phone Kamran Singh MD Primary Care Provider [phone] Reason for Referral * Consultation (Routine) - Authorized Specialty Diagnoses / Procedures Referred By Nathalia garcia Referred To Contact Cardiac Rehabilitation Diagnoses S/P AVR Phillip Clark MD [address] [address] Phone: tel: fax: Referral ID Status Reason Start Date Expiration Date V isits Requested Visits Authorized [id number] Authorized 06/20/2025 12/20/2026 1 1 Reason for Visit * Auth/Cert (Routine) Specialty Diagnoses / Procedures Referred By Nathalia garcia Referred To Contact Diagnoses Severe aortic regurgitation Severe aortic regurgitation [I35.1] Procedures RI -AORT GRF W/CARD BYP F/AORTIC DISSECTION AORTIC ROOT RECONSTRUCTION Phillip Clark MD [address] [address] Phone: tel: fax: [facility] OPERATING ROOM [address] [place] [address] Phone: tel: Referral ID Status Reason Start Date Expiration Date Visits Re quested Visits Authorized [id number] 1 1 Encounter Details Date Type Department Care Team (Latest Contact Info) Description 06/14/2025 5:18 AM EDT - 06/20/2025 2:25 PM EDT Hospital Encounter [facility] Inpatient [address] [place] [address] Phillip Clark MD [address] [place] [address] Other secondary hypertension (Primary Dx); Severe aortic regurgitation; S/P AVR Discharge Disposition: Home or Self Care Social [...] time in the past 12 m [facility], were you homeless or living in a [facility] (including now)? No 06/15/2025 [facility] Utilities Answer Date Recorded In the past [...] Sign Reading Time Taken Comments Blood Pressure 136/67 06/20/2025 9:00 AM EDT Pulse 85 06/20/2025 9:00 AM EDT Temperature 37.4 C (99.3 F) 06/20/2025 8:00 AM EDT Respiratory Rate 18 06/20/2025 9:00 AM EDT Oxygen Saturation 95% 06/20/2025 9:00 AM EDT Inhaled Oxygen Concentration - - Weight 85.6 kg (188 lb 11.4 oz) 06/20/2025 5:44 AM EDT Height 170.2 cm (5' 7 ) 06/14/2025 6:20 AM EDT Body Mass Index 29.56 06/14/2025 6:20 AM EDT documented in this encounter Functional Status * Calculated C-SSRS Risk Score (Lifetime/Recent) Answer Date of Assessment Author No Risk Indicated 06/19/2025 8:00 PM EDT Any Garcia RN * Question Answer Date of Assessment Author 1. Wish to be (Past 1 Month) No 025 8:00 PM EDT Any Garcia RN 2. Non-Specific Active Suici richie Thoughts (Past 1 Month) No 06/19/2025 8:00 PM EDT Any Garcia RN 6. Suicidal Behavior (Lifetime) No 8:00 PM EDT Any Garcia RN documented as of this encounter Discharge Instructions * Discharge Instructions* Angie Abarca APRN - 06/20/2025 8:41 AM EDT Please weigh yourself each morning and keep a log to bring back to show the heart surgeon when you return for follow up. If you have more than a 3 pound weight gain overnight or more than a 5 pound weight gain in a week, please call for further instructions. We are sending you home with a water/fluid pill Lasix (furosemide) 40mg once daily for 3 days only; to be taken with Potassium 20mEq once daily for 3 days only. We have started you on warfarin (coumadin) and it is very important that you keep your appointment on Friday to have your blood drawn for an INR (your goal INR is 2.5 to 3.5) so that your coumadindoses can be adjusted. Please stop the aspirin 81mg daily and continue your clopidogrel (Plavix) 75mg once daily with the warfarin (coumadin). Please take your blood pressure daily about one hour after you take your morning meds (or anytime your feel dizzy or lightheaded), and keep a log to take with you anytime you see a doctor/provider. Keep a current medication list in your wallet at all times. Since your surgery, you have not been requiring your home regimen of medications; however, this will likely change as you continue to heal and become more active, which is why it is so important to keep a log of your daily blood pressures. documented in this encounter Medications at Time of Discharge acetaminophen (Tylenol) 325 MG tablet Take 2 tablets by mouth every 4 hours as needed for pain, headaches or fever. 100 tablet 06/20/2025 clopidogrel (Plavix) 75 MG tablet Take 1 tablet by mouth daily. 30 tablet 06/20/2025 empagliflozin (Jardiance) 10 MG Take 1 tablet by mouth daily. 30 tablet 2 06/20/2025 6 ezetimibe (Zetia) 10 MG tablet Take 1 tablet by mouth daily. 30 tablet 2 06/20/2025 6 furosemide (Lasix) 40 MG tablet Take 1 tablet by mouth daily. Take Lasix (furosemide) 40mg once daily for 3 days only; to be taken with potassium 20mEq once daily for 3 days only. 3 tablet 06/20/2025 losartan (Cozaar) 50 MG tablet Take 0.5 tablets by mouth 2 times a day. 60 tablet 2 06/20/2025 6 methocarbamol (Robaxin) 500 MG tablet Take 1 tablet by mouth 4 times a day as needed for muscle spasms. 40 tablet 06/20/2025 metoprolol tartrate (Lopressor) 50 MG tablet Take 1 tablet by mouth 2 times a day. 60 tablet 2 06/20/2025 6 naloxone (Narcan) 4 mg/0.1 mL nasal spray [...] by mouth daily. 30 tablet 2 06/20/2025 6 spironolactone (Aldactone) 25 MG tablet Take 1 [...] Hold for loose stool 20 capsule 06/20/2025 potassium chloride CR (Klor-Con M20) 20 MEQ ER tablet Take 1 tablet by mouth daily for 3 days. Do not crush or chew. Take for 3 days only; to be taken with Lasix (furosemide) 40mg once daily for 3 days only. 3 tablet 06/20/2025 senna (Senokot) 8.6 MG tablet Take 2 tablets by mouth nightly for 10 days. Hold for loose stools 20 tablet 06/20/2025 documented as of this encounter Miscellaneous Notes * Progress Notes - Krista Townsend - 06/20/2025 11:40 AM EDT Inpatient Cardiac Rehab Assessment Patient Name: Bradley Forrest Today's Date: 06/20/2025 Subjective: Mr. Forrest qualifies for outpatient cardiac rehab due to recent AVR. I/R/P: I met with Bradley Forrest to discuss outpatient cardiac rehab and the benefits of attending. Insurancecoverage discussed. Mr. Forrest is agreeable to a referral and prefers to attend at [facility]. [place] will contact Mr. Forrest to discuss and schedule. Cardiac Rehabilitation Program Referral 1. Participation in a Phase II cardiac rehabilitation program is recommended. Patient was informed about what cardiac rehabilitation has to offer and why it is beneficial. The plan of care for the rehabilitation program consists of risk factor modification, monitored and supervised exercise and assistance in the recovery process with ongoing education and support. Patient is patient interested incardiac rehab?: is interested in attending a cardiac rehabilitation program. 2. Eligibility: Heart valve surgery 3. Exceptions/exclusions: [facility] Cardiac Rehab Exclusions: None 4. Referral: [facility] Cardiac Rehab Referral: Patient agreed with referral to the cardiac rehabilitation program at [facility] in [place], [place], phone number [phone]. 5. Information sent: Information Sent: Appropriate information will be sent to the receiving cardiac rehabilitation program.: * Progress Notes - Oumou Berger - 06/20/2025 10:15 AM EDT Case Management Discharge Note Bradley Forrest 69 y.o. male CSN: [id number] Admission: 06/14/2025 5:18 AM Primary Problem: Aortic valve regurgitation Primary Table Runner: Primary Caregiver: Self Assistance Available at Discharge: Current Outpatient/Agency/Support Group: DME Availability of Care Givers (#Hours): Other (comment) (As needed) Family/Table Runner(s) Willingness Assessed to care for patient at home: Yes Family/Table Runner(s) Readiness Assessed to care for patient at home: Yes Housing Circumstances-Z Codes: Housing Circumstances (select all that apply): None Applicable Patient Referred to Financial or Community Resources: Financial Resources: Other (Comment) Discharge Facility/Level of Care Needs: Discharge Facility/Level of Care Needs: 1-Home or Self Care Patient's Choice of Community Agency(s): Patient's Choice of Community Agency(s): n/a Patient/Family Anticipated Services at Transition: Patient/Family Anticipated Services at Transition: durable medical equipment DME/Equipment Needed after Discharge: Equipment Currently Used at Home: cane, straight, walker, standard Equipment Needed After Discharge: walker, rollator Readmission Within the Last 30 Days: Readmission Within the Last 30 Days: no previous admission in last 30 days Medicare Documentation: Medicare Second Notice?: Yes Date Second Notice Completed: 06/20/25 Time Second Notice Completed: 0846 Medicare Second Notice Recieved By: patient Follow-up: Jolynn Pollard APRN [facility] Cardiology [address] [place] [address] [address], [place] [address] Go on 08/22/2025 Your cardiology appointment is on August 22 at 11am Please arrive 15 minutes early and bring UPDATED medication list. [address] [facility] [id number] Go on 06/22/2025 Your first appointment for your Warfarin/Coumadin management is this FridayJune 22 at 11:30am. Please report to [facility] front admission desk and tell them you are checking in to the Pharmacy Anticoagulation Clinic. The blue print control clerk will call the pharmacist who will meet you in the lobby and escort you to the clinic. Please bring all medications you are taking and your insurance card. If you have any issues please call [phone] ext: [phone] and then choose option 2. Discharge Transportation: Transportation Anticipated: family or friend will provide Transportation Home at Discharge: Family/Friend will Provide Follow Up Transport: Transportation Needed to Follow up Appoinments: Family/Friend will Provide Additional Comments: SW spoke with primary team this date who indicate the pt is medically stable for DC this date and does not require further [facility]-based care. Pt to DC home with , to transport. Covering RNCM ordered rollator from [facility] to be delivered to bedside. No further SW concerns identified at this time. SW will continue to remain available and will follow up with DC planning and needs as appropriate. DIMPLE [place] * Discharge Summary - Angie Abarca APRN - 06/20/2025 9:40 AM EDT Hospitalization Admit Date/Time: 06/14/2025 5:18 AM Admitting Attending: Phillip Clark Discharge Date: 06/20/2025 Discharge Attending Physician: Phillip Clark MD PCP name and Address: Kamran Singh MD [address] [place] [address] / [facility] [address] Referring provider name and address: No referring provider defined for this encounter. Chief Concern, Brief History of Present Illness, and Hospital Course Bradley Forrest is a 69 y.o. male presenting for aortic root reconstruction. PMH includes aortic insufficiency, ascending aortic aneurysm, CAD with recent PCI, hypertension, hyperlipidemia, and obesity. He was initially seen in our clinic on 03/10/2025 after he was noted to have a murmur on exam which prompted a CT chest and TTE which showed a 4.1 cm aneurysm and a mild degree of aortic insufficiency.At that time we recommended 6 month follow-up with CT chest for ongoing monitoring of the aortic enlargement. Following that visit he had a cardiac catheterization with Dr. Duvall in which he had 2stents placed and a cardiac MRI revealed severe aortic regurgitation. He was seen on 04/14 and a repe at TTE was ordered. That was completed on 04/25 and showed mod-severe AI and significant LV dilationwith a normal EF. Surgeries and Procedures Aortic valve replacement Median sternotomy, aortic valve replacement using a 25 mm Saint Jose mechanical prosthesis on 06/14/[address] Clark Operative course was non-complicated. Following the procedure, patient was taken to the CVICU whereCCM was consulted for ongoing critical care management. Post- operative course was uncomplicated andpatient recovered well. Currently, patient is maintaining sinus rhythm. Pain is well controlled with PRN analgesics. Patient is able to ambulate well without assistance. Patient is tolerating a regular diet. UOP is appropriate and bowel function has returned post- operatively. At this time, patient is hemodynamically stable and appropriate for discharge. Medication List acetaminophen 325 MG tablet Commonly known as: Tylenol Take 2 tablets by mouth every 4 hours as needed for pain, headaches or fever. clopidogrel 75 MG tablet Commonly known as: Plavix Take 1 tablet by mouth daily. docusate sodium 100 MG capsule Commonly known as: Colace Take 1 capsule by mouth 2 times a day for 10 days. Hold for loose stool empagliflozin 10 MG Commonly known as: Jardiance Take 1 tablet by mouth daily. ezetimibe 10 MG tablet Commonly known as: Zetia Take 1 tablet by mouth daily. furosemide 40 MG tablet Commonly known as: Lasix Take 1 tablet by mouth daily. Take Lasix (furosemide) 40mg once daily for 3 days only; to be taken with potassium 20mEq once daily for 3 days only. losartan 50 MG tablet Commonly known as: Cozaar Take 0.5 tablets by mouth 2 times a day. methocarbamol 500 MG tablet Commonly known as: Robaxin Take 1 tablet by mouth 4 times a day as needed for muscle spasms. metoprolol tartrate 50 MG tablet Commonly known as: Lopressor Take 1 tablet by mouth 2 times a day. naloxone 4 mg/0.1 mL nasal spray Commonly known as: Narcan 1. Give 1 spray in nostril for no/slow breathing or cannot wake after opioid use 2. Call 911 3. Repeat in other nostril if symptoms continue omeprazole [address] capsule Commonly known as: PriLOSEC Take 1 capsule by mouth daily as needed. Do not crush or chew. oxyCODONE 5 MG immediate release tablet Commonly known as: Roxicodone Take 1 tablet by mouth every 4 hours as needed for moderate pain. potassium chloride CR 20 MEQ ER tablet Commonly known as: Klor-Con M20 Take 1 tablet by mouth daily for 3 days. Do not crush or chew. Take for 3 days only; to be taken with Lasix (furosemide) 40mg once daily for 3 days only. Repatha SureClick 140 MG/ML solution auto-injector autoinjector Generic drug: Evolocumab Inject 1 mL under the skin every 14 days. rosuvastatin 40 MG tablet Commonly known as: Crestor Take 1 tablet by mouth daily. senna 8.6 MG tablet Commonly known as: Senokot Take 2 tablets by mouth nightly for 10 days. Hold for loose stools spironolactone 25 MG tablet Commonly known as: Aldactone Take 1 tablet by mouth daily. holding warfarin 2 MG tablet Commonly known as: Coumadin Take 2 tablets by mouth daily. 4mg daily until you get your INR drawn on Jun 22, then as directed. Where to Get Your Medications These medications were sent to [facility] - [place], [place] - [address] [facility] [address] [facility] [place] [address] acetaminophen 325 MG tablet clopidogrel 75 MG tablet docusate sodium 100 MG capsule empagliflozin 10 MG ezetimibe 10 MG tablet furosemide 40 MG tablet losartan 50 MG tablet methocarbamol 500 MG tablet metoprolol tartrate 50 MG tablet naloxone 4 mg/0.1 mL nasal spray oxyCODONE 5 MG immediate release tablet potassium chloride CR 20 MEQ ER tablet rosuvastatin 40 MG tablet senna 8.6 MG tablet warfarin 2 MG tablet Information about where to get these medications is not yet available Ask your nurse or doctor about these medications spironolactone 25 MG tablet. We are holding this medication at discharge; he will resume it at a later date. Discharge Diagnosis Bradley Forrest is a 69 y.o. male with a history of CAD with recent PCI, hypertension, hyperlipidemia, and obesity referred in consultation by Dr Singh in regards to aortic insufficiency and ascendingaortic aneurysm. Severe Aortic Valve Regurgitation Left Ventricular Enlargement S/P Aortic valve replacement (25 mm Saint Jose mechanical prosthesis) Oral Anticoagulation - Beta-jade - Routine post cardiac surgery care: Sternal precautions x 6 weeks, PT, bowel regimen to prevent constipation and aggressive pulmonary toilet. Warfarin INR & Dose Trends Date INR Warfarin Dose (mg) Comments 06/15 1.3 4mg pLov started 06/16 1.5 4mg tLov to start 06/16 pm 06/17 1.5 5mg tLov continues 06/18 2.3 4mg tLOV given 06/18 AM then discontinued 06/19 2.4 4mg 06/20 2.9 4mg Pt understands he is to get his INR checked locally on Jun 22 as scheduled. Bigeminy PVCs PACs - K 4.6, Mag 2.4 - increased metoprolol - monitor Volume overload - 06/15 IV Lasix 40mg x 2 - 06/16 PO Lasix 40mg x 1 - 06/18 PO Lasix 40mg x 1 - CXR and diuresis PRN - Pt seen by Dr. Clark and Fellow/Resident in am; okay to discharge home if INR follow up has beenarranged - Admit wt 87.8, discharge wt 85.6 - Pt discharged with Lasix 40mg po daily x 3 days with K 20mEq po daily x 3 days; he understands towt himself daily and keep a log to bring back to surgeon Post-op Anemia - mild - continue to monitor Pre-diabetes Post-op Hyperglycemia - A1c 5.7 - SSI discontinued - Follow up with PCP CAD - S/p MILA' to the RCA and PDA 03/2025 - Statin and Plavix; no asa since on warfarin with P2Y12 HTN - Holding home spironolactone - Changed home atenolol to metoprolol tartrate - Resumed home losartan HLD - Continue atorvastatin and Zetia - Resume home Repatha after discharge Hypocalcemia - Monitor and replete as needed Hypoalbuminemia - Protein shakes with each meal Hyponatremia - Mild - 1800ml fluid restriction Leukocytosis (resolved) Thrombocytopenia (resolved) Post Discharge Instructions Per AVS and as below: Please weigh yourself each morning and keep a log to bring back to show the heart surgeon when you return for follow up. If you have more than a 3 pound weight gain overnight or more than a 5 pound weight gain in a week, please call for further instructions. We are sending you home with a water/fluid pill Lasix (furosemide) 40mg once daily for 3 days only; to be taken with Potassium 20mEq once daily for 3 days only. We have started you on warfarin (coumadin) and it is very important that you keep your appointment on Friday to have your blood drawn for an INR (your goal INR is 2.5 to 3.5) so that your coumadindoses can be adjusted. Please stop the aspirin 81mg daily and continue your clopidogrel (Plavix) 75mg once daily with the warfarin (coumadin). Please take your blood pressure daily about one hour after you take your morning meds (or anytime your feel dizzy or lightheaded), and keep a log to take with you anytime you see a doctor/provider. Keep a current medication list in your wallet at all times. Since your surgery, you have not been requiring your home regimen of medications; however, this will likely change as you continue to heal and become more active, which is why it is so important to keep a log of your daily blood pressures. Outpatient Follow-Up Future Appointments Date Time Provider Department Center 07/07/2025 2:40 PM Phillip Clark MD [facility] Test Results Pending At Discharge N/A Pertinent Physical Exam At Time of Discharge GENERAL: WD, WN, NAD. NECK: Supple. Trachea midline RESP/CHEST: Symmetric expansion; non labored. CTA bilaterally. Midsternal incision CDI and Sternum stable CARD: Regular rate and rhythm, normal S1 and S2, no murmur, rub, or gallop. No JVD. No lower extremity edema present. Pedal pulses palpable. EXTREMITIES: No cyanosis or clubbing. GI: Soft, Nontender, nondistended. BS present and normoactive x 4 quadrants INCISION: Sternal incision with edges approximated with surgical glue. Clean, dry, intact. NEURO: AAOx4. Motor intact and no focal deficits PSYCH: Mood and affect congruent and appropriate to situation. Discharge Disposition/Condition Disposition: Home Condition: Stable (s/sx potential problems absent or manageable) I spent >30 minutes of patient care and instruction time in preparation for this discharge. Cosigned by Phillip Clark MD at 06/27/2025 6:48 PM EDT * Progress Notes - Libia Stevenson PharmD - 06/20/2025 8:32 AM EDT Antithrombosis Monitoring: Warfarin Bradley Forrest is a 69 y.o. male who has been started on warfarin. Warfarin Indication & Goal Anticoagulation Indication/Goal Warfarin Indication: Mechanical mitral valve Duration of Anticoagulation: Indefinite Target INR: 2.5-3.5 Warfarin Prior to Admission: No Assessment Warfarin Drug Interactions Inhibitors of Warfarin Metabolism: HMG Co-A Inhibitors (Statins) Increased Bleeding Risk: Clopidogrel Interacting medications started/stopped in past 72 hours?: No Any warfarin reversal given?: No Anticoagulation Assessment Warfarin Sensitivity Risk Factors: Elderly, age > 65 Warfarin Sensitivity Score: High (1 or more Warfarin Sensitivity Risk Factors) Nutritional Intake: Normal PO Intake Today's INR : Therapeutic Warfarin INR & Dose Trends Date INR Warfarin Dose (mg) Comments 06/15 1.3 4mg pLov started 06/16 1.5 4mg tLov to start 06/16 pm 06/17 1.5 5mg tLov continues 06/18 2.3 4mg tLOV given 06/18 AM then discontinued 06/19 2.4 4mg Per discussion with first contact provider. Will be updated per attending provider discretion once they are out of surgery. 06/20 2.9 4mg Plan Anticoagulation Plan Warfarin Pharmacist Managed?: No [facility] Warfarin Dosing Protocol Followed?: No Reason for Protocol Departure: CT Surgery Bridging Agent in Conjunction With Warfarin? : No INR Monitoring Frequency: Monitor INR daily Patient Education : Complete and documented Warfarin dosing and adjustment per CT surgery provider. Transitions of Care Outpatient provider managing warfarin after [facility] discharge: TBD - possibly clinic Recommended date for outpatient INR assessment: TBD - of note, enoxparin copay $0 for 7 day supply Will continue to follow patient's clinical progress daily. Libia Stevenson PharmD, [facility] Clinical Pharmacist - Cardiothoracic Surgery Available via [employer] * Progress Notes - Phillip Clark MD - 06/20/2025 6:37 AM EDT Bradley Forrest Patient was seen and examined with resident physicians and CCM. Labs in last 18 hours CBC WBC 6.95 Hb 10.4 (L) Plt 187 Hct 31.9 (L) ANC ?? INR 2.9 (H), PTT ??, Anti-Xa ?? BMP Na 131 (L) Cl 102 BUN 22 Glu 107 (H) K 4.0 Co2 24 Cr 0.85 Ca 7.9 (L) iCa ?? Mg 2.2, Phos 2.8 Lactate ?? LFT AST ?? AlkPhos ?? T Prot ?? ALK ?? Bili ?? Alb ?? D.Bili ?? Current Scheduled Medications[1] Current Continuous Medications[2] Visit Vitals BP 123/76 (BP Location: Right arm, Patient Position: Sitting) Pulse 75 Temp 37.1 ??C (98.7 ??F) (Axillary) Ht 1.702 m (5' 7 ) Wt 85.6 kg (188 lb 11.4 oz) SpO2 93% BMI 29.56 kg/m?? Intake/Output Summary (Last 24 hours) at 06/20/2025 0637 Last data filed at 06/19/20251999 Gross per 24 hour Intake 750 ml Output 810 ml Net -60 ml Physical Exam Constitutional: General: He is not in acute distress. HENT: Head: Normocephalic and atraumatic. Mouth/Throat: Mouth: Mucous membranes are moist. Eyes: Extraocular Movements: Extraocular movements intact. Cardiovascular: Rate and Rhythm: Normal rate and regular rhythm. Pulmonary: Effort: Pulmonary effort is normal. No respiratory distress. Abdominal: General: There is no distension. Palpations: Abdomen is soft. Skin: General: Skin is warm. Capillary Refill: Capillary refill takes less than 2 seconds. Neurological: General: No focal deficit present. Mental Status: He is alert and oriented to person, place, and time. Psychiatric: Mood and Affect: Mood normal. Judgment: Judgment normal. Sternal incision: well approximated Impression & Plan 69 year old male status post mechanical aortic root replacement on 06/14/25. - 2v CXR today - warfaring 4mg today, daily INR - plavix - continue beta jade - PO lasix - OOB/mobilize - PT/OT - telemetry status - possible home today if home INR monitoring arranged [1] acetaminophen, 650 mg, Oral, q4h DEMETRIUS clopidogrel, 75 mg, Oral, Daily docusate sodium, 200 mg, Oral, BID empagliflozin, 10 mg, Oral, Daily ezetimibe, 10 mg, Oral, Daily Apollo, 1 packet, Oral, BID losartan, 25 mg, Oral, BID melatonin, 9 mg, Oral, Nightly methocarbamol, 500 mg, Oral, TID metoprolol tartrate, 25 mg, Oral, q6h pantoprazole, 40 mg, Oral, Daily polyethylene glycol, 17 g, Oral, Daily rosuvastatin, 40 mg, Oral, Nightly senna, 17.2 mg, Oral, BID sodium chloride, 10 mL, Intravenous, q12h warfarin, 4 mg, Oral, Daily [2] * Procedures - Sterling Molina RN - 06/20/2025 1:47 AM EDTAssociated Order(s): Insert peripheral IV Insert peripheral IV Performed by: Sterling Molina RN Authorized by: Phillip Clark MD Hand hygiene: Hand hygiene performed prior to insertion Inserted using aseptic techniques: Yes Preparation: Skin prepped with chg Orientation: Left and upper Location: Arm Catheter placed: Peripheral IV Catheter size: 20g/2.00in Line Technique: Ultrasound Guidance Number of attempts: 1 IV flushes: Without difficulty and positive blood return noted and IV luer locked Patient tolerance: Patient tolerated the procedure well and there were no complications Patient comfort measures used: Distraction and position of comfort IV site covered with: Transparent semipermeable dressing * Care Plan - Any Garcia RN - 06/19/2025 11:11 PM EDT Problem: Adult Inpatient Plan of Care Goal: Plan of Care Review Outcome: Ongoing, Progressing Flowsheets Taken 06/19/2025 1705 by Vicente Hussein RN Progress: improving Outcome Evaluation: plan of care will be discussed with patient and family and agreeable Taken 06/19/2025344 by Lori Molina RN Plan of Care Reviewed With: patient family Goal: Patient-Specific Goal (Individualized) Outcome: Ongoing, Progressing Flowsheets (Taken 06/19/20251704 by Vicente Hussein RN) Patient/Family-Specific Goals (Include Timeframe): patient will self report a tolerable level of pain every two hours in the duration of my 12 hour shift Individualized Care Needs: pain control Anxieties, Fears or Concerns: pain control Goal: Absence of Hospital-Acquired Illness or Injury Outcome: Ongoing, Progressing Intervention: Identify and Manage Fall Risk Flowsheets (Taken 06/19/20251999) Safety Promotion/Fall Prevention: activity supervised clutter-free environment maintained Intervention: Prevent Skin Injury Flowsheets Taken 06/19/20251999 by Any Garcia RN Body Position: weight shifting Taken 06/19/20251704 by Vicente Hussein RN Skin Protection: incontinence pads utilized Intervention: Prevent and Manage VTE (Venous Thromboembolism) Risk Flowsheets (Taken 06/19/20251999) VTE Prevention/Management: medication Intervention: Prevent Infection Flowsheets (Taken 06/19/20251704 by Vicente Hussein RN) Infection Prevention: cohorting utilized environmental surveillance performed Goal: Optimal Comfort and Wellbeing Outcome: Ongoing, Progressing Intervention: Monitor Pain and Promote Comfort Flowsheets (Taken 06/19/20251704 by Vicente Hussein RN) Pain Management Interventions: medication (see MAR) Intervention: Provide Person-Centered Care Flowsheets (Taken 06/19/20251704 by Vicente Hussein RN) Trust Relationship/Rapport: care explained Problem: Infection Goal: Absence of Infection Signs and Symptoms Outcome: Ongoing, Progressing Intervention: Prevent or Manage Infection Flowsheets Taken 06/19/20251999 by Any Garcia RN Isolation Precautions: protective Taken 06/19/20251704 by Vicente Hussein RN Infection Management: aseptic technique maintained Fever Reduction/Comfort Measures: lightweight bedding lightweight clothing Problem: Cardiovascular Surgery Goal: Improved Activity Tolerance Outcome: Ongoing, Progressing Intervention: Optimize Tolerance for Activity Flowsheets (Taken 06/19/20251704 by Vicente Hussein RN) Environmental Support: calm environment promoted Self-Care Promotion: independence encouraged Goal: Optimal Coping with Heart Surgery Outcome: Ongoing, Progressing Intervention: Support Psychosocial Response to Surgery Flowsheets (Taken 06/19/20251704 by Vicente Hussein RN) Supportive Measures: active listening utilized Family/Support System Care: caregiver stress acknowledged Goal: Absence of Bleeding Outcome: Ongoing, Progressing Intervention: Monitor and Manage Bleeding Flowsheets (Taken 06/19/20251704 by Vicente Hussein, RN) Bleeding Management: dressing monitored Goal: Effective Bowel Elimination Outcome: Ongoing, Progressing Intervention: Enhance Bowel Motility and Elimination Flowsheets (Taken 06/19/20251704 by Vicente Hussein, RN) Bowel Elimination Management: relaxation techniques promoted Bowel Motility Enhancement: ambulation promoted Goal: Effective Cardiac Function Outcome: Ongoing, Progressing Intervention: Optimize Cardiac Output and Blood Flow Flowsheets (Taken 06/19/20251704 by Vicente Hussein RN) Stabilization Measures: (n/a) other (see comments) Dysrhythmia Management: (n/a) other (see comments) Goal: Optimal Cerebral Tissue Perfusion Outcome: Ongoing, Progressing Intervention: Protect and Optimize Cerebral Perfusion Flowsheets Taken 06/19/20251999 by Any Garcia RN Head of Bed (HOB) Positioning: HOB elevated Taken 06/19/20251704 by Vicente Hussein RN Glycemic Management: blood glucose monitored Fever Reduction/Comfort Measures: lightweight bedding lightweight clothing Sensory Stimulation Regulation: television on Cerebral Perfusion Promotion: blood pressure monitored Goal: Fluid and Electrolyte Balance Outcome: Ongoing, Progressing Intervention: Monitor and Manage Fluid and Electrolyte Balance Flowsheets (Taken 06/19/20251704 by Vicente Hussein, RN) Fluid/Electrolyte Management: fluids restricted fluids provided Goal: Blood Glucose Level Within Target Range Outcome: Ongoing, Progressing Intervention: Optimize Glycemic Control Flowsheets (Taken 06/19/20251704 by Vicente Hussein, HESHAM) Glycemic Management: blood glucose monitored Goal: Absence of Infection Signs and Symptoms Outcome: Ongoing, Progressing Intervention: Prevent or Manage Infection Flowsheets (Taken 06/19/20251704 by Vicente Hussein RN) Fever Reduction/Comfort Measures: lightweight bedding lightweight clothing Infection Prevention: cohorting utilized environmental surveillance performed Goal: Acceptable Pain Control Outcome: Ongoing, Progressing Intervention: Prevent or Manage Pain Flowsheets Taken 06/19/20251704 by Vicente Hussein RN Pain Management Interventions: medication (see MAR) Complementary Therapy: essential oils utilized Taken 06/19/2025344 by Lori Molina RN Diversional Activities: television Goal: Nausea and Vomiting Relief Outcome: Ongoing, Progressing Intervention: Prevent or Manage Nausea and Vomiting Flowsheets (Taken 06/19/20251704 by Vicente Hussein, RN) Nausea/Vomiting Interventions: slow deep breathing encouraged Goal: Effective Urinary Elimination Outcome: Ongoing, Progressing Intervention: Monitor and Manage Urinary Retention Flowsheets (Taken 06/19/20251704 by Vicente Hussein, RN) Urinary Elimination Promotion: toileting offered Goal: Effective Oxygenation and Ventilation Outcome: Ongoing, Progressing Intervention: Promote Airway Secretion Clearance Flowsheets Taken 06/19/20251704 by Vicente Hussein RN Airway/Ventilation Management: calming measures promoted Cough And Deep Breathing: done independently per patient Taken 06/19/20251199 by Vicente Hussein RN Administration (IS): proper technique demonstrated Incentive Spirometer Predicted Level (mL): 1000 Number of Repetitions (IS): 10 Taken 06/19/2025344 by Lori Molina RN Patient Tolerance (IS): good Taken 06/17/20251999 by Lori Molina RN Level Incentive Spirometer (mL): 1000 Intervention: Optimize Oxygenation and Ventilation Flowsheets (Taken 06/19/20251704 by Vicente Hussein, HESHAM) Chest Tube Safety: suction checked Problem: Fall Injury Risk Goal: Absence of Fall and Fall-Related Injury Outcome: Ongoing, Progressing Intervention: Identify and Manage Contributors Flowsheets (Taken 06/19/20251704 by Vicente Hussein, HESHAM) Medication Review/Management: medications reviewed Self-Care Promotion: independence encouraged Intervention: Promote Injury-Free Environment Flowsheets (Taken 06/19/20251999) Safety Promotion/Fall Prevention: activity supervised clutter-free environment maintained Problem: Pain Acute Goal: Optimal Pain Control and Function Outcome: Ongoing, Progressing Intervention: Optimize Psychosocial Wellbeing Flowsheets Taken 06/19/20251704 by Vicente Hussein RN Supportive Measures: active listening utilized Spiritual Activities Assistance: affirmation provided Taken 06/19/2025344 by Lori Molina RN Diversional Activities: television Intervention: Develop Pain Management Plan Flowsheets (Taken 06/19/20251704 by iVcente Hussein RN) Pain Management Interventions: medication (see MAR) Intervention: Prevent or Manage Pain Flowsheets (Taken 06/19/20251704 by Vicente Hussein, RN) Sensory Stimulation Regulation: television on Complementary Therapy: essential oils utilized Bowel Elimination Promotion: adequate fluid intake promoted Sleep/Rest Enhancement: family presence promoted Medication Review/Management: medications reviewed Problem: Mobility Impairment Goal: Optimal Mobility Outcome: Ongoing, Progressing Intervention: Optimize Mobility Flowsheets Taken 06/19/20251704 by Vicente Hussein RN Activity Management: activity encouraged Positioning/Transfer Devices: pillows wedge Taken 06/19/20251699 by Vicente Hussein RN Assistive Device Utilized: four wheel walker Problem: Self-Care Deficit Goal: Improved Ability to Complete Activities of Daily Living Outcome: Ongoing, Progressing Intervention: Promote Activity and Functional [place] Flowsheets (Taken 06/19/20251704 by Vicente Hussein RN) Activity Assistance Provided: assistance, stand-by Adaptive Equipment Use: use encouraged Self-Care Promotion: independence encouraged Problem: Self-Care Deficit Goal: Improved Ability to Complete Activities of Daily Living Outcome: Ongoing, Progressing Intervention: Promote Activity and Functional [place] Flowsheets (Taken 06/19/20251704 by Vicente Hussein, RN) Activity Assistance Provided: assistance, stand-by Adaptive Equipment Use: use encouraged Self-Care Promotion: independence encouraged Problem: Wound Goal: Optimal Coping Outcome: Ongoing, Progressing Intervention: Support Patient and Family Response Flowsheets (Taken 06/19/20251704 by Vicente Hussein, RN) Supportive Measures: active listening utilized Family/Support System Care: caregiver stress acknowledged Goal: Optimal Functional Ability Outcome: Ongoing, Progressing Intervention: Optimize Functional Ability Flowsheets Taken 06/19/20251704 by Vicente Hussein RN Activity Management: activity encouraged Activity Assistance Provided: assistance, stand-by Taken 06/19/20251699 by Vicente Hussein RN Assistive Device Utilized: four wheel walker Goal: Absence of Infection Signs and Symptoms Outcome: Ongoing, Progressing Intervention: Prevent or Manage Infection Flowsheets Taken 06/19/20251999 by Any Garcia RN Isolation Precautions: protective Taken 06/19/20251704 by Vicente Hussein RN Infection Management: aseptic technique maintained Fever Reduction/Comfort Measures: lightweight bedding lightweight clothing Goal: Improved Oral Intake Outcome: Ongoing, Progressing Intervention: Promote and Optimize Oral Intake Flowsheets (Taken 06/19/20251704 by Vicente Hussein RN) Nutrition Support Management: weight trending reviewed Oral Nutrition Promotion: physical activity promoted Nutrition Interventions: meal set-up provided Goal: Optimal Pain Control and Function Outcome: Ongoing, Progressing Intervention: Prevent or Manage Pain Flowsheets (Taken 06/19/20251704 by Vicente Hussein RN) Pain Management Interventions: medication (see MAR) Complementary Therapy: essential oils utilized Sleep/Rest Enhancement: family presence promoted Goal: Skin Health and Integrity Outcome: Ongoing, Progressing Intervention: Optimize Skin Protection Flowsheets Taken 06/19/20251999 by Any Garcia RN Head of Bed (HOB) Positioning: HOB elevated Taken 06/19/20251704 by Vicente Hussein RN Activity Management: activity encouraged Taken 06/19/2025344 by Lori Molina RN Pressure Reduction Techniques: weight shift assistance provided heels elevated off bed Pressure Reduction Devices: positioning supports utilized Skin Protection: specialty mattress utilized tubing/devices free from skin contact Goal: Optimal Wound Healing Outcome: Ongoing, Progressing Intervention: Promote Wound Healing Flowsheets (Taken 06/19/20251704 by Vicente Hussein RN) Sleep/Rest Enhancement: family presence promoted * Care Plan - Vicente Hussein RN - 06/19/2025 5:05 PM EDT Problem: Adult Inpatient Plan of Care Goal: Plan of Care Review 06/19/20251704 by Vicente Hussein RN Outcome: Ongoing, Progressing Flowsheets (Taken 06/19/2025344 by Lori Molina RN) Plan of Care Reviewed With: patient family 06/19/20251704 by Vicente Hussein RN Outcome: Ongoing, Progressing Flowsheets Taken 06/19/20251704 by Vicente Hussein RN Progress: improving Outcome Evaluation: plan of care will be discussed with patient and family and agreeable Taken 06/19/2025344 by Lori Molina RN Plan of Care Reviewed With: patient family Goal: Patient-Specific Goal (Individualized) 06/19/20251704 by Vicente Hussein RN Outcome: Ongoing, Progressing Flowsheets (Taken 06/19/20251704) Patient/Family-Specific Goals (Include Timeframe): patient will self report a tolerable level of pain every two hours in the duration of my 12 hour shift Individualized Care Needs: pain control Anxieties, Fears or Concerns: pain control 06/19/20251704 by Vicente Hussein RN Outcome: Ongoing, Progressing Goal: Absence of Hospital-Acquired Illness or Injury 06/19/20251704 by Vicente Hussein RN Outcome: Ongoing, Progressing 06/19/20251704 by Vicente Hussein RN Outcome: Ongoing, Progressing Intervention: Identify and Manage Fall Risk Flowsheets (Taken 06/19/20251704) Safety Promotion/Fall Prevention: activity supervised Intervention: Prevent Skin Injury Flowsheets Taken 06/19/20251704 Skin Protection: incontinence pads utilized Taken 06/19/20251699 Body Position: weight shifting Intervention: Prevent and Manage VTE (Venous Thromboembolism) Risk Flowsheets (Taken 06/19/20251699) VTE Prevention/Management: medication Intervention: Prevent Infection Flowsheets (Taken 06/19/20251704) Infection Prevention: cohorting utilized environmental surveillance performed Goal: Optimal Comfort and Wellbeing 06/19/20251704 by Vicente Hussein RN Outcome: Ongoing, Progressing 06/19/20251704 by Vicente Hussein RN Outcome: Ongoing, Progressing Intervention: Monitor Pain and Promote Comfort Flowsheets (Taken 06/19/20251704) Pain Management Interventions: medication (see MAR) Intervention: Provide Person-Centered Care Flowsheets (Taken 06/19/20251704) Trust Relationship/Rapport: care explained Problem: Infection Goal: Absence of Infection Signs and Symptoms 06/19/20251704 by Vicente Hussein RN Outcome: Ongoing, Progressing 06/19/20251704 by Vicente Hussein RN Outcome: Ongoing, Progressing Intervention: Prevent or Manage Infection Flowsheets (Taken 06/19/20251704) Infection Management: aseptic technique maintained Fever Reduction/Comfort Measures: lightweight bedding lightweight clothing Isolation Precautions: precautions maintained Problem: Cardiovascular Surgery Goal: Improved Activity Tolerance 06/19/20251704 by Vicente Hussein RN Outcome: Ongoing, Progressing 06/19/20251704 by Vicente Hussein RN Outcome: Ongoing, Progressing Intervention: Optimize Tolerance for Activity Flowsheets (Taken 06/19/20251704) Environmental Support: calm environment promoted Self-Care Promotion: independence encouraged Goal: Optimal Coping with Heart Surgery 06/19/20251704 by Vicente Hussein RN Outcome: Ongoing, Progressing 06/19/20251704 by Vicente Hussein RN Outcome: Ongoing, Progressing Intervention: Support Psychosocial Response to Surgery Flowsheets (Taken 06/19/20251704) Supportive Measures: active listening utilized Family/Support System Care: caregiver stress acknowledged Goal: Absence of Bleeding 06/19/20251704 by Vicente Hussein RN Outcome: Ongoing, Progressing 06/19/20251704 by Vicente Hussein RN Outcome: Ongoing, Progressing Intervention: Monitor and Manage Bleeding Flowsheets (Taken 06/19/20251704) Bleeding Management: dressing monitored Goal: Effective Bowel Elimination 06/19/20251704 by Vicente Hussein RN Outcome: Ongoing, Progressing 06/19/20251704 by Vicente Hussein RN Outcome: Ongoing, Progressing Intervention: Enhance Bowel Motility and Elimination Flowsheets (Taken 06/19/20251704) Bowel Elimination Management: relaxation techniques promoted Bowel Motility Enhancement: ambulation promoted Goal: Effective Cardiac Function 06/19/20251704 by Vicente Hussein RN Outcome: Ongoing, Progressing 06/19/20251704 by Vicente Hussein RN Outcome: Ongoing, Progressing Intervention: Optimize Cardiac Output and Blood Flow Flowsheets (Taken 06/19/20251704) Stabilization Measures: (n/a) other (see comments) Dysrhythmia Management: (n/a) other (see comments) Goal: Optimal Cerebral Tissue Perfusion 06/19/20251704 by Vicente Hussein RN Outcome: Ongoing, Progressing 06/19/20251704 by Vicente Hussein RN Outcome: Ongoing, Progressing Intervention: Protect and Optimize Cerebral Perfusion Flowsheets Taken 06/19/20251704 Glycemic Management: blood glucose monitored Fever Reduction/Comfort Measures: lightweight bedding lightweight clothing Sensory Stimulation Regulation: television on Cerebral Perfusion Promotion: blood pressure monitored Taken 06/19/20251699 Head of Bed (HOB) Positioning: HOB elevated Goal: Fluid and Electrolyte Balance 06/19/20251704 by Vicente Hussein RN Outcome: Ongoing, Progressing 06/19/20251704 by Vicente Hussein RN Outcome: Ongoing, Progressing Intervention: Monitor and Manage Fluid and Electrolyte Balance Flowsheets (Taken 06/19/20251704) Fluid/Electrolyte Management: fluids restricted fluids provided Goal: Blood Glucose Level Within Target Range 06/19/20251704 by Vicente Hussein RN Outcome: Ongoing, Progressing 06/19/20251704 by Vicente Hussein RN Outcome: Ongoing, Progressing Intervention: Optimize Glycemic Control Flowsheets (Taken 06/19/20251704) Glycemic Management: blood glucose monitored Goal: Absence of Infection Signs and Symptoms 06/19/20251704 by Vicente Hussein RN Outcome: Ongoing, Progressing 06/19/20251704 by Vicente Hussein RN Outcome: Ongoing, Progressing Intervention: Prevent or Manage Infection Flowsheets (Taken 06/19/20251704) Fever Reduction/Comfort Measures: lightweight bedding lightweight clothing Infection Prevention: cohorting utilized environmental surveillance performed Goal: Acceptable Pain Control 06/19/20251704 by Vicente Hussein RN Outcome: Ongoing, Progressing 06/19/20251704 by Vicente Hussein RN Outcome: Ongoing, Progressing Intervention: Prevent or Manage Pain Flowsheets Taken 06/19/20251704 by Vicente Hussein RN Pain Management Interventions: medication (see MAR) Complementary Therapy: essential oils utilized Taken 06/19/2025344 by Lori Molina RN Diversional Activities: television Goal: Nausea and Vomiting Relief 06/19/20251704 by Vicente Hussein RN Outcome: Ongoing, Progressing 06/19/20251704 by Vicente uHssein RN Outcome: Ongoing, Progressing Intervention: Prevent or Manage Nausea and Vomiting Flowsheets (Taken 06/19/20251704) Nausea/Vomiting Interventions: slow deep breathing encouraged Goal: Effective Urinary Elimination 06/19/20251704 by Vicente Hussein RN Outcome: Ongoing, Progressing 06/19/20251704 by Vicente Hussein RN Outcome: Ongoing, Progressing Intervention: Monitor and Manage Urinary Retention Flowsheets (Taken 06/19/20251704) Urinary Elimination Promotion: toileting offered Goal: Effective Oxygenation and Ventilation 06/19/20251704 by Vicente Hussein RN Outcome: Ongoing, Progressing 06/19/20251704 by Vicente Hussein RN Outcome: Ongoing, Progressing Intervention: Promote Airway Secretion Clearance Flowsheets Taken 06/19/20251704 by Vicente Hussein RN Airway/Ventilation Management: calming measures promoted Cough And Deep Breathing: done independently per patient Taken 06/19/20251199 by Vicente Hussein RN Administration (IS): proper technique demonstrated Incentive Spirometer Predicted Level (mL): 1000 Number of Repetitions (IS): 10 Taken 06/19/2025344 by Lori Molina RN Patient Tolerance (IS): good Taken 06/17/20251999 by Lori Molina RN Level Incentive Spirometer (mL): 1000 Intervention: Optimize Oxygenation and Ventilation Flowsheets (Taken 06/19/20251704) Chest Tube Safety: suction checked Problem: Fall Injury Risk Goal: Absence of Fall and Fall-Related Injury 06/19/20251704 by Vicente Hussein RN Outcome: Ongoing, Progressing 06/19/20251704 by Vicente Hussein RN Outcome: Ongoing, Progressing Intervention: Identify and Manage Contributors Flowsheets (Taken 06/19/20251704) Medication Review/Management: medications reviewed Self-Care Promotion: independence encouraged Intervention: Promote Injury-Free Environment Flowsheets (Taken 06/19/20251704) Safety Promotion/Fall Prevention: activity supervised Problem: Pain Acute Goal: Optimal Pain Control and Function 06/19/20251704 by Vicente Hussein RN Outcome: Ongoing, Progressing 06/19/20251704 by Vicente Hussein RN Outcome: Ongoing, Progressing Intervention: Optimize Psychosocial Wellbeing Flowsheets Taken 06/19/20251704 by Vicente Hussein RN Supportive Measures: active listening utilized Spiritual Activities Assistance: affirmation provided Taken 06/19/2025344 by Lori Molina RN Diversional Activities: television Intervention: Develop Pain Management Plan Flowsheets (Taken 06/19/20251704) Pain Management Interventions: medication (see MAR) Intervention: Prevent or Manage Pain Flowsheets (Taken 06/19/20251704) Sensory Stimulation Regulation: television on Complementary Therapy: essential oils utilized Bowel Elimination Promotion: adequate fluid intake promoted Sleep/Rest Enhancement: family presence promoted Medication Review/Management: medications reviewed Problem: Mobility Impairment Goal: Optimal Mobility 06/19/20251704 by Vicente Hussein RN Outcome: Ongoing, Progressing 06/19/20251704 by Vicente Hussein RN Outcome: Ongoing, Progressing Intervention: Optimize Mobility Flowsheets Taken 06/19/20251704 Activity Management: activity encouraged Positioning/Transfer Devices: pillows wedge Taken 06/19/20251699 Assistive Device Utilized: four wheel walker Problem: Self-Care Deficit Goal: Improved Ability to Complete Activities of Daily Living 06/19/20251704 by Vicente Hussein RN Outcome: Ongoing, Progressing 06/19/20251704 by Vicente Hussein RN Outcome: Ongoing, Progressing Intervention: Promote Activity and Functional [place] Flowsheets (Taken 06/19/20251704) Activity Assistance Provided: assistance, stand-by Adaptive Equipment Use: use encouraged Self-Care Promotion: independence encouraged Problem: Wound Goal: Optimal Coping 06/19/20251704 by Vicente Hussein RN Outcome: Ongoing, Progressing 06/19/20251704 by Vicente Hussein RN Outcome: Ongoing, Progressing Intervention: Support Patient and Family Response Flowsheets (Taken 06/19/20251704) Supportive Measures: active listening utilized Family/Support System Care: caregiver stress acknowledged Goal: Optimal Functional Ability 06/19/20251704 by Vicente Hussein RN Outcome: Ongoing, Progressing 06/19/20251704 by Vicente Hussein RN Outcome: Ongoing, Progressing Intervention: Optimize Functional Ability Flowsheets Taken 06/19/20251704 Activity Management: activity encouraged Activity Assistance Provided: assistance, stand-by Taken 06/19/20251699 Assistive Device Utilized: four wheel walker Goal: Absence of Infection Signs and Symptoms 06/19/20251704 by Vicente Hussein RN Outcome: Ongoing, Progressing 06/19/20251704 by Vicente Hussein RN Outcome: Ongoing, Progressing Intervention: Prevent or Manage Infection Flowsheets (Taken 06/19/20251704) Infection Management: aseptic technique maintained Fever Reduction/Comfort Measures: lightweight bedding lightweight clothing Isolation Precautions: precautions maintained Goal: Improved Oral Intake 06/19/20251704 by Vicente Hussein RN Outcome: Ongoing, Progressing 06/19/20251704 by Vicente Hussein RN Outcome: Ongoing, Progressing Intervention: Promote and Optimize Oral Intake Flowsheets (Taken 06/19/20251704) Nutrition Support Management: weight trending reviewed Oral Nutrition Promotion: physical activity promoted Nutrition Interventions: meal set-up provided Goal: Optimal Pain Control and Function 06/19/20251704 by Vicente Hussein RN Outcome: Ongoing, Progressing 06/19/20251704 by Vicente Hussein RN Outcome: Ongoing, Progressing Intervention: Prevent or Manage Pain Flowsheets (Taken 06/19/20251704) Pain Management Interventions: medication (see MAR) Complementary Therapy: essential oils utilized Sleep/Rest Enhancement: family presence promoted Goal: Skin Health and Integrity 06/19/20251704 by Vicente Hussein RN Outcome: Ongoing, Progressing 06/19/20251704 by Vicente Hussein RN Outcome: Ongoing, Progressing Intervention: Optimize Skin Protection Flowsheets Taken 06/19/20251704 by Vicente Hussein RN Activity Management: activity encouraged Taken 06/19/20251699 by Vicente Hussein RN Head of Bed (HOB) Positioning: HOB elevated Taken 06/19/2025 034 by Lori Molina RN Pressure Reduction Techniques: weight shift assistance provided heels elevated off bed Pressure Reduction Devices: positioning supports utilized Skin Protection: specialty mattress utilized tubing/devices free from skin contact Goal: Optimal Wound Healing 06/19/20251704 by Vicente Hussein RN Outcome: Ongoing, Progressing 06/19/20251704 by Vicente Hussein RN Outcome: Ongoing, Progressing Intervention: Promote Wound Healing Flowsheets (Taken 06/19/20251704) Sleep/Rest Enhancement: family presence promoted Problem: Self-Care Deficit Goal: Improved Ability to Complete Activities of Daily Living 06/19/20251704 by Vicente Hussein RN Outcome: Ongoing, Progressing 06/19/20251704 by Vicente Hussein RN Outcome: Ongoing, Progressing Intervention: Promote Activity and Functional [place] Flowsheets (Taken 06/19/20251704) Activity Assistance Provided: assistance, stand-by Adaptive Equipment Use: use encouraged Self-Care Promotion: independence encouraged * Progress Notes - Prashant Aguilar, FrankD - 06/19/2025 1:22 PM EDT Antithrombosis Monitoring: Warfarin Bradley Forrest is a 69 y.o. male who has been started on warfarin. Warfarin Indication & Goal Anticoagulation Indication/Goal Warfarin Indication: Mechanical mitral valve Duration of Anticoagulation: Indefinite Target INR: 2.5-3.5 Warfarin Prior to Admission: No Assessment Warfarin Drug Interactions Inhibitors of Warfarin Metabolism: HMG Co-A Inhibitors (Statins) Interacting medications started/stopped in past 72 hours?: Yes Medication started/stopped in past 72 hours: plavix started 06/16, therapeutic enoxaparin started 06/16 PM and stopped 06/18AM Any warfarin reversal given?: No Anticoagulation Assessment Warfarin Sensitivity Risk Factors: Elderly, age > 65;Recent cardiac surgery;Surgery and blood loss Warfarin Sensitivity Score: High (1 or more Warfarin Sensitivity Risk Factors) Nutritional Intake: Normal PO Intake;Minimal PO intake Today's INR : Subtherapeutic Warfarin INR & Dose Trends Date INR Warfarin Dose (mg) Comments 06/15 1.3 4mg pLov started 06/16 1.5 4mg tLov to start 06/16 pm 06/17 1.5 5mg tLov continues 06/18 2.3 4mg tLOV given 06/18 AM then discontinued 06/19 2.4 4mg Per discussion with first contact provider. Will be updated per attending provider discretion once they are out of surgery. Plan Anticoagulation Plan Warfarin Pharmacist Managed?: No [facility] Warfarin Dosing Protocol Followed?: No Reason for Protocol Departure: CT Surgery Bridging Agent in Conjunction With Warfarin? : No Goal PTT/anti-Xa: 2.5-3.5 INR Monitoring Frequency: Monitor INR daily Patient Education : Complete and documented Warfarin dosing and adjustment per CT surgery provider. Transitions of Care Outpatient provider managing warfarin after [facility] discharge: TBD - possibly clinic Recommended date for outpatient INR assessment: TBD - of note, enoxparin copay $0 for 7 day supply Will continue to follow patient's clinical progress daily. Prashant Aguilar, FrankD PGY2 Critical Care Resident Available on secure chat * Progress Notes - Barbara Sosa PA - 06/19/2025 12:16 PM EDT CVT Daily Progress Note Past 24 Hours/Subjective: Patient has been having bigeminal PVCs as well as PACs and has gotten a couple of extra doses of metoprolol. He is able to feel his heart beat harder but is not having any other symptoms with it. Hisincisional pain is controlled though he is having some hip pain Objective: All vital signs, images, tracings and labs personally reviewed unless otherwise indicated VITALS Visit Vitals BP 126/64 (BP Location: Left arm, Patient Position: Sitting) Pulse 87 Temp 36.9 ??C (98.4 ??F) (Oral) Ht 1.702 m (5' 7 ) Wt 85.7 kg (188 lb 15 oz) SpO2 95% BMI 29.59 kg/m?? Temp: [36.7 ??C (98 ??F)-36.9 ??C (98.4 ??F)] 36.9 ??C (98.4 ??F) Heart Rate: [74-103] 87 Resp: [13-30] 16 BP: (103-151)/(42-98) 126/64 Physical Exam: CONSTITUTIONAL: WNWD NAD HENMT: Head atraumatic, normocephalic, Nares patent, Moist mucous membranes without pallor EYES: PERRLA. No scleral icterus or conjunctivitis. NECK: Supple. Nontender. No JVD. The trachea appears midline. PULM: Breath sounds clear throughout. No accessory muscle use CARDIAC: RRR, S1S2. No murmur, rubs, or gallop. No edema sternal incision site C/D/I GI: Abdomen soft, nontender, nondistended. BSA No HSM noted SKIN: No rashes. No cyanosis or clubbing. NEURO: Alert and oriented x3. Moves all extremities with purpose. PSYCH: Cooperative with care. Mood & affect congruent and appropriate to situation. I & O SUMMARY I/O last 3 completed shifts: In: 1730 (20.2 mL/kg) [P.O.:1730] Out: 2370 (27.7 mL/kg) [Urine:2370 (0.8 mL/kg/hr)] Weight: 85.7 kg I/O this shift: In: 500 [P.O.:500] Out: 0 Most Recent BM Date: 06/16/25 MEDICATIONS Current Scheduled Medications[1] Current Continuous Medications[2] Current PRN Medications[3] LABS: All Labs personally reviewed. CBC WBC 6.94 Hb 11.5 (L) Plt 165 Hct 35.7 (L) INR 2.4 (H), PTT ??, Anti-Xa ?? BMP Na 134 (L) Cl 102 BUN 25 (H) Glu 102 (H) K 4.6 Co2 23 Cr 1.02 Ca 8.4 (L) iCa ?? Mg 2.4, Phos 3.6 Radiographics/Diagnostics: All images personally reviewed and I agree with the radiology interpretation No echocardiogram results found for the past 12 months XR CHEST 1 VIEW 06/19/2025: - Narrative - CLINICAL INDICATION: Post-Op Cardiac Surgery TECHNIQUE: XR CHEST 1 VIEW COMPARISON: 23 hours prior FINDINGS: Perihilar and basal airspace disease and/or atelectasis with small pleural effusions, similar prior. Right internal jugular catheter has been removed. Mediastinal and cardiac contours are stable. - Impression - Stable aeration. Problem List: Principal Problem: Aortic valve regurgitation Active Problems: BMI 30.0-30.9,adult High cholesterol Hypertension CAD (coronary artery disease) History of coronary angioplasty with insertion of stent Ascending aortic aneurysm (CMS/HCC) Benign prostatic hyperplasia Weaning from mechanically assisted ventilation initiated (CMS/HCC) Other secondary hypertension Cardiac volume overload Constipation Ileus (CMS/HCC) Left ventricular enlargement Thrombocytopenia (CMS/HCC) Leukocytosis Hypocalcemia Acute blood loss anemia Hypoalbuminemia Pre-diabetes Assessment: Bradley Forrest is a 69 y.o. male with a history of CAD with recent PCI, hypertension, hyperlipidemia, and obesity referred in consultation by Dr Singh in regards to aortic insufficiency and ascendingaortic aneurysm. Severe Aortic Valve Regurgitation Left Ventricular Enlargement S/P Aortic valve replacement (25 mm [place] mechanical prosthesis) Oral Anticoagulation - beta-jade - Routine post cardiac surgery care: sternal precautions x 6 weeks, PT, bowel regimen to prevent constipation and aggressive pulmonary toilet. Warfarin INR & Dose Trends Date INR Warfarin Dose (mg) Comments 06/15 1.3 4mg pLov started 06/16 1.5 4mg tLov to start 06/16 pm 06/17 1.5 5mg tLov continues 06/18 2.3 4mg tLOV given 06/18 AM then discontinued 06/16 2.4 4mg Bigeminy PVCs PACs - K 4.6, Mag 2.4 - increase metoprolol to 25mg every 6 hours - monitor Volume overload - 06/15 IV Lasix 40mg x 2 - 06/16 PO Lasix 40mg x 1 - 06/18: PO Lasix 40mg x 1 - CXR and diuresis PRN Post-op Anemia - mild - continue to monitor Pre-diabetes Post-op Hyperglycemia - A1c 5.7 - SSI discontinued CAD - S/p MILA' to the RCA and PDA 03/2025 - statin and Plavix HTN - Holding home spironolactone & atenolol - metoprolol and losartan HLD - continue atorvastatin and Zetia - home Repatha on hold Hypocalcemia - monitor and replete as needed Hypoalbuminemia - protein shakes with each meal Hyponatremia - mild - 1800ml fluid restriction Leukocytosis (resolved) Thrombocytopenia (resolved) Plan: - increase metoprolol and monitor rhythm - continue warfarin CT surgery pager [phone] [1] acetaminophen, 650 mg, Oral, q4h DEMETRIUS clopidogrel, 75 mg, Oral, Daily docusate sodium, 200 mg, Oral, BID empagliflozin, 10 mg, Oral, Daily ezetimibe, 10 mg, Oral, Daily Apollo, 1 packet, Oral, BID losartan, 25 mg, Oral, BID melatonin, 9 mg, Oral, Nightly methocarbamol, 500 mg, Oral, TID metoprolol tartrate, 25 mg, Oral, q6h pantoprazole, 40 mg, Oral, Daily polyethylene glycol, 17 g, Oral, Daily rosuvastatin, 40 mg, Oral, Nightly senna, 17.2 mg, Oral, BID sodium chloride, 10 mL, Intravenous, q12h warfarin, 4 mg, Oral, Daily [2] [3] PRN medications: ondansetron, oxyCODONE OR oxyCODONE, simethicone, sodium chloride, sodium chloride * Care Plan - Lori Molina RN - 06/19/2025 3:50 AM EDT Problem: Adult Inpatient Plan of Care Goal: Plan of Care Review Outcome: Ongoing, Progressing Flowsheets Taken 06/19/2025 034 Progress: improving Plan of Care Reviewed With: patient family Taken 06/18/2025 0059 Outcome Evaluation: Plan of care discussed with pt and family Goal: Patient-Specific Goal (Individualized) Outcome: Ongoing, Progressing Flowsheets (Taken 06/18/20251999) Patient/Family-Specific Goals (Include Timeframe): Pt will remain free from injury throughout this shift Individualized Care Needs: Safety Anxieties, Fears or Concerns: None stated Goal: Absence of Hospital-Acquired Illness or Injury Outcome: Ongoing, Progressing Intervention: Identify and Manage Fall Risk Flowsheets (Taken 06/18/20251999) Safety Promotion/Fall Prevention: activity supervised assistive device/personal items within reach clutter-free environment maintained fall prevention program maintained lighting adjusted mobility aid in reach nonskid shoes/slippers when out of bed room organization consistent safety round/check completed toileting scheduled Intervention: Prevent Skin Injury Flowsheets Taken 06/19/2025 0345 Skin Protection: incontinence pads utilized Taken 06/19/2025 0200 Body Position: weight shifting Intervention: Prevent and Manage VTE (Venous Thromboembolism) Risk Flowsheets (Taken 06/19/2025 0000) VTE Prevention/Management: medication Intervention: Prevent Infection Flowsheets (Taken 06/19/2025 0345) Infection Prevention: hand hygiene promoted personal protective equipment utilized rest/sleep promoted single patient room provided environmental surveillance performed equipment surfaces disinfected Goal: Optimal Comfort and Wellbeing Outcome: Ongoing, Progressing Intervention: Monitor Pain and Promote Comfort Flowsheets (Taken 06/18/20252002) Pain Management Interventions: medication (see MAR) pillow support provided Intervention: Provide Person-Centered Care Flowsheets (Taken 06/19/2025344) Trust Relationship/Rapport: care explained choices provided questions answered questions encouraged Problem: Infection Goal: Absence of Infection Signs and Symptoms Outcome: Ongoing, Progressing Intervention: Prevent or Manage Infection Flowsheets Taken 06/19/2025 0345 Infection Management: aseptic technique maintained Fever Reduction/Comfort Measures: lightweight bedding lightweight clothing Taken 06/18/20251999 Isolation Precautions: precautions maintained protective Problem: Cardiovascular Surgery Goal: Improved Activity Tolerance Outcome: Ongoing, Progressing Intervention: Optimize Tolerance for Activity Flowsheets (Taken 06/19/2025 034) Environmental Support: calm environment promoted rest periods encouraged Self-Care Promotion: independence encouraged Goal: Optimal Coping with Heart Surgery Outcome: Ongoing, Progressing Intervention: Support Psychosocial Response to Surgery Flowsheets (Taken 06/19/2025344) Supportive Measures: active listening utilized relaxation techniques promoted Family/Support System Care: caregiver stress acknowledged self-care encouraged support provided Goal: Absence of Bleeding Outcome: Ongoing, Progressing Intervention: Monitor and Manage Bleeding Flowsheets (Taken 06/19/2025344) Bleeding Management: dressing monitored Goal: Effective Bowel Elimination Outcome: Ongoing, Progressing Intervention: Enhance Bowel Motility and Elimination Flowsheets (Taken 06/19/2025344) Bowel Elimination Management: relaxation techniques promoted hygiene measures promoted toileting offered Bowel Motility Enhancement: ambulation promoted fluid intake encouraged Goal: Effective Cardiac Function Outcome: Ongoing, Progressing Intervention: Optimize Cardiac Output and Blood Flow Flowsheets (Taken 06/19/2025344) Stabilization Measures: airway opened Goal: Optimal Cerebral Tissue Perfusion Outcome: Ongoing, Progressing Intervention: Protect and Optimize Cerebral Perfusion Flowsheets (Taken 06/19/2025344) Glycemic Management: blood glucose monitored Fever Reduction/Comfort Measures: lightweight bedding lightweight clothing Sensory Stimulation Regulation: care clustered lighting decreased Cerebral Perfusion Promotion: blood pressure monitored normothermia promoted Head of Bed (HOB) Positioning: HOB elevated Goal: Fluid and Electrolyte Balance Outcome: Ongoing, Progressing Intervention: Monitor and Manage Fluid and Electrolyte Balance Flowsheets (Taken 06/19/2025344) Fluid/Electrolyte Management: fluids provided Goal: Blood Glucose Level Within Target Range Outcome: Ongoing, Progressing Intervention: Optimize Glycemic Control Flowsheets (Taken 06/19/2025344) Glycemic Management: blood glucose monitored Goal: Absence of Infection Signs and Symptoms Outcome: Ongoing, Progressing Intervention: Prevent or Manage Infection Flowsheets (Taken 06/19/2025344) Fever Reduction/Comfort Measures: lightweight bedding lightweight clothing Infection Prevention: hand hygiene promoted personal protective equipment utilized rest/sleep promoted single patient room provided environmental surveillance performed equipment surfaces disinfected Goal: Acceptable Pain Control Outcome: Ongoing, Progressing Intervention: Prevent or Manage Pain Flowsheets Taken 06/19/2025344 Complementary Therapy: other (see comments) Diversional Activities: television Taken 06/18/20252002 Pain Management Interventions: medication (see MAR) pillow support provided Goal: Nausea and Vomiting Relief Outcome: Ongoing, Progressing Intervention: Prevent or Manage Nausea and Vomiting Flowsheets (Taken 06/19/2025344) Nausea/Vomiting Interventions: slow deep breathing encouraged Goal: Effective Urinary Elimination Outcome: Ongoing, Progressing Intervention: Monitor and Manage Urinary Retention Flowsheets (Taken 06/19/2025344) Urinary Elimination Promotion: toileting offered frequent voiding encouraged Goal: Effective Oxygenation and Ventilation Outcome: Ongoing, Progressing Intervention: Promote Airway Secretion Clearance Flowsheets Taken 06/19/2025344 by Lori Molina RN Patient Tolerance (IS): good Administration (IS): instruction provided, follow-up Airway/Ventilation Management: airway patency maintained Taken 06/19/2025 0000 by Lori Molina RN Cough And Deep Breathing: done independently per patient Taken 06/18/2025 0800 by Brittaney Dumas RN Number of Repetitions (IS): 10 Taken 06/17/2025 2000 by Lori Molina RN Level Incentive Spirometer (mL): 1000 Problem: Fall Injury Risk Goal: Absence of Fall and Fall-Related Injury Outcome: Ongoing, Progressing Intervention: Identify and Manage Contributors Flowsheets (Taken 06/19/2025344) Medication Review/Management: medications reviewed Self-Care Promotion: independence encouraged Intervention: Promote Injury-Free Environment Flowsheets (Taken 06/18/20251999) Safety Promotion/Fall Prevention: activity supervised assistive device/personal items within reach clutter-free environment maintained fall prevention program maintained lighting adjusted mobility aid in reach nonskid shoes/slippers when out of bed room organization consistent safety round/check completed toileting scheduled Problem: Pain Acute Goal: Optimal Pain Control and Function Outcome: Ongoing, Progressing Intervention: Optimize Psychosocial Wellbeing Flowsheets (Taken 06/19/2025344) Supportive Measures: active listening utilized relaxation techniques promoted Diversional Activities: television Spiritual Activities Assistance: affirmation provided Intervention: Develop Pain Management Plan Flowsheets (Taken 06/18/20252002) Pain Management Interventions: medication (see MAR) pillow support provided Intervention: Prevent or Manage Pain Flowsheets (Taken 06/19/2025344) Sensory Stimulation Regulation: care clustered lighting decreased Complementary Therapy: other (see comments) Bowel Elimination Promotion: adequate fluid intake promoted ambulation promoted diet adjusted Sleep/Rest Enhancement: awakenings minimized consistent schedule promoted regular sleep/rest pattern promoted room darkened Medication Review/Management: medications reviewed Problem: Mobility Impairment Goal: Optimal Mobility Outcome: Ongoing, Progressing Intervention: Optimize Mobility Flowsheets (Taken 06/19/2025344) Activity Management: activity encouraged dorsiflexion/plantar flexion performed Assistive Device Utilized: four wheel walker Positioning/Transfer Devices: pillows Problem: Self-Care Deficit Goal: Improved Ability to Complete Activities of Daily Living Outcome: Ongoing, Progressing Intervention: Promote Activity and Functional [place] Flowsheets (Taken 06/19/2025344) Activity Assistance Provided: assistance, stand-by Self-Care Promotion: independence encouraged Problem: Self-Care Deficit Goal: Improved Ability to Complete Activities of Daily Living Outcome: Ongoing, Progressing Intervention: Promote Activity and Functional [place] Flowsheets (Taken 06/19/2025344) Activity Assistance Provided: assistance, stand-by Self-Care Promotion: independence encouraged Problem: Wound Goal: Optimal Coping Outcome: Ongoing, Progressing Intervention: Support Patient and Family Response Flowsheets (Taken 06/19/2025344) Supportive Measures: active listening utilized relaxation techniques promoted Family/Support System Care: caregiver stress acknowledged self-care encouraged support provided Goal: Optimal Functional Ability Outcome: Ongoing, Progressing Intervention: Optimize Functional Ability Flowsheets (Taken 06/19/2025344) Activity Management: activity encouraged dorsiflexion/plantar flexion performed Activity Assistance Provided: assistance, stand-by Assistive Device Utilized: four wheel walker Goal: Absence of Infection Signs and Symptoms Outcome: Ongoing, Progressing Intervention: Prevent or Manage Infection Flowsheets Taken 06/19/2025344 Infection Management: aseptic technique maintained Fever Reduction/Comfort Measures: lightweight bedding lightweight clothing Taken 06/18/20251999 Isolation Precautions: precautions maintained protective Goal: Improved Oral Intake Outcome: Ongoing, Progressing Intervention: Promote and Optimize Oral Intake Flowsheets (Taken 06/19/2025344) Nutrition Support Management: weight trending reviewed Oral Nutrition Promotion: physical activity promoted Nutrition Interventions: diet advanced meal set-up provided Goal: Optimal Pain Control and Function Outcome: Ongoing, Progressing Intervention: Prevent or Manage Pain Flowsheets Taken 06/19/2025344 Complementary Therapy: other (see comments) Sleep/Rest Enhancement: awakenings minimized consistent schedule promoted regular sleep/rest pattern promoted room darkened Taken 06/18/20252002 Pain Management Interventions: medication (see MAR) pillow support provided Goal: Skin Health and Integrity Outcome: Ongoing, Progressing Intervention: Optimize Skin Protection Flowsheets (Taken 06/19/2025344) Activity Management: activity encouraged dorsiflexion/plantar flexion performed Pressure Reduction Techniques: weight shift assistance provided heels elevated off bed Pressure Reduction Devices: positioning supports utilized Skin Protection: specialty mattress utilized tubing/devices free from skin contact Head of Bed (HOB) Positioning: HOB elevated Goal: Optimal Wound Healing Outcome: Ongoing, Progressing Intervention: Promote Wound Healing Flowsheets (Taken 06/19/2025344) Sleep/Rest Enhancement: awakenings minimized consistent schedule promoted regular sleep/rest pattern promoted room darkened * Brittaney Blake RN - 06/18/2025 6:29 PM EDT Images from the original note were not included. [id number] Tratamiento para contracciones ventriculares prematuras (CVP) Las contracciones ventriculares prematuras (CVP) son un tipo de latidos card??acos anormales (arritmia). Son muy frecuentes y pueden ocurrir en personas de todas las edades de vez en cuando. Por lo general, no causan s??ntomas o solo causan s??ntomas leves. Tipos de tratamiento La mayor??a de las personas con CVP no necesitan vinay??n tratamiento. Si recibe tratamiento por otro problema card??aco, seven enfermedad card??megan o insuficiencia card??megan, ab CVP pueden disminuir.Por ejemplo, podr??a natalee un medicamento para disminuir la presi??n arterial, lo cual puede disminuir beaver tasa de CVP. En algunos casos, se puede realizar un tratamiento espec??fico para ayudar a evitar las CVP. Se utilizan solo si tiene s??ntomas de CVP. Las opciones incluyen las siguientes: ? Identificar y reducir o eliminar causas o desencadenantes corregibles. ? Medicamentos denominados ?betabloqueantes? o ?bloqueadores de los winn del calcio?. ? Otros medicamentos para evitar las arritmias. ? Ablaci??n con cat??ter, un procedimiento para destruir las c??lulas del coraz??n que causa latidos anormales. Vivir con CVP Beaver proveedor de atenci??n m??dica puede darle m??s instrucciones sobre c??mo manejar ab CVP, talescomo: ? Seguir aria dieta saludable. ? Hacer suficiente ejercicio. ? Mantener un peso saludable. ? No beber demasiado alcohol o cafe??na, ya que pueden producir CVP. ? Aprender a manejar el estr??s y la fatiga, que tambi??n pueden generar CVP. ? Dormir lo suficientemente mayela. ? Recibir tratamiento para ab otras afecciones m??dicas, seven presi??n arterial pelon. ? Asegurarse de cumplir con todas ab citas m??dicas. ? Consultar a beaver proveedor de atenci??n m??dica antes de natalee cualquier medicamento no recetado, incluidos productos a base de hierbas, suplementos y drogas recreativas. Estos pueden sobreexcitar elcoraz??n y activar las CVP. Cu??ndo llamar a beaver proveedor de atenci??n m??dica Llame a beaver proveedor de atenci??n m??dica de inmediato ante cualquiera de estas situaciones: ? S??ntomas que empeoran con el tiempo. ? Situaciones pr??ximas a un desmayo. ? Palpitaciones sostenidas. Llame al 911 Llame al 911 si se presenta cualquiera de estos casos: ? Falta de aire repentina. ? Desmayos. ? Cambios en la visi??n. ? Dolor de laci intenso. ? N??useas o v??mitos. ? Mareos. ? Confusi??n. Last Reviewed Date: 2024 00:00:00 ?? [id number] [employer]. All rights reserved. This information is not intended as a substitute for professional medical care. Always follow your healthcare professional's instructions. * Gabriel Singh - Brittaney Dumas RN - 06/18/2025 6:29 PM EDT Images from the original note were not included. [id number] C??mo comprender las contracciones ventriculares prematuras (CVP) Contracciones ventriculares prematuras (CVP) son un tipo de latido card??aco an??william (arritmia). Suelen encontrarse en personas de todas las edades. C??mo se producen los CVP El coraz??n tiene 4 c??maras: 2 superiores aur??culas y 2 ventr??culos inferiores. Normalmente, un kong especial de c??lulas ?marcapasos? inicia el se??al para iniciar el latido card??aco. Estas c??lulas se encuentran en el ganglio sinoauricular () de la derecha aur??cula. La se??al desciende r?? pidamente por el sistema de conducci??n del coraz??n. Pasa a la ventr??culo christa y derecho. A medida que viaja, la se??al activa partes cercanas del coraz??n contraer. [place] permite que el coraz??n se comprima de forma coordinada. [place] un PVC, la se??al para iniciar el latido card??aco proviene de cheyanne de los ventr??culos. Esta se??al es prematura, lo que significa que ocurre antes de que el n??dulo SA haya tenido la oportunidad de dispararse. La se??al se extiende por el khurram del coraz??n, lo que provoca latidos card??acos. Si esto sucede muy poco despu??s de la latidos card??acos anteriores, el coraz??n expulsar?? muypoca mushtaq. [place] provoca aria sensaci??n de pausa entre latidos. El siguiente latido card??aco suele ser m??s bea, ya que la pausa lo permite que el coraz??n descanse y se llene de mushtaq. [place] lleva a aria sensaci??n de latido card??aco adicional. Por lo tanto, el coraz??n tiene un latido card??aco ?prematurado? entre latidos card??acos normales. ??Qu?? causa los CVP? La mayor??a de las veces, los CVP son inofensivos. César ciertas cosas pueden ayudar a desencadenar aria se??al prematura en los ventr??culos. Estos incluyen: ? Avance de la edad. ? Reducci??n del flujo sangu??carmen a beaver coraz??n (seven arteriopat??a coronaria). ? Cicatrizaci??n despu??s de un coraz??n ataque. ? Problemas electrol??ticos, seven niveles bajos de sodio o potasio. ? cafe??na. ? Alcohol. ? Nicotina. ? F??rmacos ilegales, seven la coca??na y la metanfetamina. ? Aumento de la adrenalina, seven con ansiedad. ? Determinados medicamentos, seven digoxina. ? Problemas endocrinos (hormonales), seven hipertiroidismo (demasiada hormona tiroidea). Muchas afecciones card??acas aumentan el riesgo de CVP. Estos incluyen: ? presi??n arterial pelon; ? Infarto de miocardio. ? Cardiopat??a coronaria. ? miocardiopat??a dilatada; ? Hipertr??fico miocardiopat??a. ? Cardiopat??a betty??karlos. ? insuficiencia card??megan. Los CVP suelen darse en personas que s?? lo hacen no padecen ninguna enfermedad card??megan. césar sonalgo m??s frecuentes en personas con alg??n tipo de cardiopat??a. ??Cu??les son los s??ntomas de los CVP? La mayor??a de las personas con CVP ocasionales no presentan s??ntomas. Cuantos m??s PVC tenga, m??s probable ser?? que los sienta. Cuando se producen s??ntomas, suelen ser leves. Los s??ntomas pueden incluir: ? Conocimiento del coraz??n latidos. ? Aleteo o chancla sensaci??n en el pecho. ? Sensaci??n de ?saltar? o Latido card??aco ?extra?. ? Mareos y nely desmayos. ? Aria sensaci??n de pulsos en el chana. Los CVP pueden causar s??ntomas m??s graves si tiene otro problema card??aco, seven insuficiencia card??megan. ??C??mo se diagnostican los CVP? Beaver m??dico le jason?? preguntas sobre beaver los antecedentes m??dicos y hacerle aria exploraci??n f??purvi. La prueba principal es un electrocardiograma (ECG). para el diagn??stico. Esta prueba registra la actividad el??ctrica del coraz??n. Jameson un ECG, se colocan zachariah??os parches (electrodos) en el pecho, los brazos y las piernas. Los conductores conectan las almohadillas a aria m??quina que registra las se??ales el??ctricas del coraz??n. Esta prueba permite m??dico para observar la se??al de los latidos card??acos jameson un breve periodo de tiempo. Cualquier PVC que se produzca jameson wen tiempo aparecer?? en el ECG. En algunos casos, beaver m??dico puede aconsejarle monitorizaci??n mediante ECG en casa o port??til jameson unos d??as o incluso semanas. [place] puede ayudar a diagnosticar los CVP que no ocurren con frecuencia. Hay varios tipos de monitores card??acos: ? Monitor Holter. Wen monitor es un caja zachariah??a con los alambres conectados a las almohadillas del pecho. La lleva jameson 1 o 2 d??as. Es proporciona un registro rajta de la actividad card??megan. Aria vez realizada la prueba, beaver m??dico analiza el registro. ? Monitores de acontecimientos. Estos monitores son tambi??n zachariah??os recuadros con agujas conectados a compresas en el pecho. Por lo general, se llevan de 3 a 4 semanas. César pueden usarse jameson varios meses. Un tipo es un bucle de memoria grabador. Wen monitor registra constantemente. César guarda la inscripci??n solo cuando pulse un bot??n. El otro tipo es un grabador del yanely??o de aria tarjeta de cr??dito. Wen monitor es solo se activa jameson un episodio. Con ambos tipos, se env??an los registros de s??ntomas a beaver m??dico por tel??fono. ? Cardiolog??a m??quan telemetr??a ambulatoria. Wen tipo de monitor de acontecimientos suele utilizarse hasta jameson 30 d??as. Utiliza tecnolog??a de tel??fonos m??viles para enviar datos en tiempo real a un centro de vigilancia donde los t??cnicos formados pueden revisarlo. O puede ponerse en contacto con un m??dico un problema potencialmente mortal. ? Monitor de parche. Se trata de un zachariah??o parche adhesivo autocontenido que puede registrar beaver ritmo card??aco jameson hasta 2 semanas. ? Insertable (o monitor card??aco implantable). Wen zachariah??o dispositivo se implanta bajo la piel.Puede usarse para llevar un registro del ritmo card??aco jameson varios a??os. ? A nivel comercial monitores de ritmo card??aco ponibles disponibles. Entre ellos se incluyen el opulseras. Pueden ser ??tiles para encontrar ritmos card??acos an??malos. Estas pueden ser las ??nicas pruebas que necesitar?? el m??dico. Es posible que necesite m??s pruebas si tiene CVP con frecuencia o muchos seguidos. Beaver m??dico puede examinar otras causas, incluidos posibles problemas card??acos. Estas pruebas podr??an incluir: ? Ecocardiograf??a. Esta prueba utiliza ecograf??a para evaluar la estructura y el funcionamiento del coraz??n. ? Pruebas de esfuerzo card??aco. Esta prueba comprueba c??mo beaver coraz??n responde al ejercicio y eval??a el flujo sangu??carmen de las arterias card??acas. ? TAC o RM card??acas. Estas pruebas de imagen proporcionan informaci??n detallada im??genes del coraz??n. ? An??lisis de mushtaq. [place] se hace para comprobar los electrolitos y concentraciones tiroideas. Last Reviewed Date: 2024 00:00:00 ?? [id number] [employer]. All rights reserved. This information is not intended as a substitute for professional medical care. Always follow your healthcare professional's instructions. * Gabriel Singh - Brittaney Dumas RN - 06/18/2025 6:29 PM EDT Images from the original note were not included. [id number] Tratamiento para contracciones ventriculares prematuras (CVP) Las contracciones ventriculares prematuras (CVP) son un tipo de latidos card??acos anormales (arritmia). Son muy frecuentes y pueden ocurrir en personas de todas las edades de vez en cuando. Por lo general, no causan s??ntomas o solo causan s??ntomas leves. Tipos de tratamiento La mayor??a de las personas con CVP no necesitan vinay??n tratamiento. Si recibe tratamiento por otro problema card??aco, seven enfermedad card??megan o insuficiencia card??megan, ab CVP pueden disminuir.Por ejemplo, podr??a natalee un medicamento para disminuir la presi??n arterial, lo cual puede disminuir beaver tasa de CVP. En algunos casos, se puede realizar un tratamiento espec??fico para ayudar a evitar las CVP. Se utilizan solo si tiene s??ntomas de CVP. Las opciones incluyen las siguientes: ? Identificar y reducir o eliminar causas o desencadenantes corregibles. ? Medicamentos denominados ?betabloqueantes? o ?bloqueadores de los winn del calcio?. ? Otros medicamentos para evitar las arritmias. ? Ablaci??n con cat??ter, un procedimiento para destruir las c??lulas del coraz??n que causa latidos anormales. Vivir con CVP Beaver proveedor de atenci??n m??dica puede darle m??s instrucciones sobre c??mo manejar ab CVP, talescomo: ? Seguir aria dieta saludable. ? Hacer suficiente ejercicio. ? Mantener un peso saludable. ? No beber demasiado alcohol o cafe??na, ya que pueden producir CVP. ? Aprender a manejar el estr??s y la fatiga, que tambi??n pueden generar CVP. ? Dormir lo suficientemente mayela. ? Recibir tratamiento para ab otras afecciones m??dicas, seven presi??n arterial pelon. ? Asegurarse de cumplir con todas ab citas m??dicas. ? Consultar a beaver proveedor de atenci??n m??dica antes de natalee cualquier medicamento no recetado, incluidos productos a base de hierbas, suplementos y drogas recreativas. Estos pueden sobreexcitar elcoraz??n y activar las CVP. Cu??ndo llamar a beaver proveedor de atenci??n m??dica Llame a beaver proveedor de atenci??n m??dica de inmediato ante cualquiera de estas situaciones: ? S??ntomas que empeoran con el tiempo. ? Situaciones pr??ximas a un desmayo. ? Palpitaciones sostenidas. Llame al 911 Llame al 911 si se presenta cualquiera de estos casos: ? Falta de aire repentina. ? Desmayos. ? Cambios en la visi??n. ? Dolor de laci intenso. ? N??useas o v??mitos. ? Mareos. ? Confusi??n. Last Reviewed Date: 2024 00:00:00 ?? [id number] [employer]. All rights reserved. This information is not intended as a substitute for professional medical care. Always follow your healthcare professional's instructions. * Gabriel Singh - Brittaney Dumas RN - 06/18/2025 6:29 PM EDT Images from the original note were not included. [id number] C??mo comprender las contracciones ventriculares prematuras (CVP) Contracciones ventriculares prematuras (CVP) son un tipo de latido card??aco an??william (arritmia). Suelen encontrarse en personas de todas las edades. C??mo se producen los CVP El coraz??n tiene 4 c??maras: 2 superiores aur??culas y 2 ventr??culos inferiores. Normalmente, un kong especial de c??lulas ?marcapasos? inicia el se??al para iniciar el latido card??aco. Estas c??lulas se encuentran en el ganglio sinoauricular () de la derecha aur??cula. La se??al desciende r?? pidamente por el sistema de conducci??n del coraz??n. Pasa a la ventr??culo christa y derecho. A medida que viaja, la se??al activa partes cercanas del coraz??n contraer. [place] permite que el coraz??n se comprima de forma coordinada. [place] un PVC, la se??al para iniciar el latido card??aco proviene de cheyanne de los ventr??culos. Esta se??al es prematura, lo que significa que ocurre antes de que el n??dulo SA haya tenido la oportunidad de dispararse. La se??al se extiende por el khurram del coraz??n, lo que provoca latidos card??acos. Si esto sucede muy poco despu??s de la latidos card??acos anteriores, el coraz??n expulsar?? muypoca mushtaq. [place] provoca aria sensaci??n de pausa entre latidos. El siguiente latido card??aco suele ser m??s bea, ya que la pausa lo permite que el coraz??n descanse y se llene de mushtaq. [place] lleva a aria sensaci??n de latido card??aco adicional. Por lo tanto, el coraz??n tiene un latido card??aco ?prematurado? entre latidos card??acos normales. ??Qu?? causa los CVP? La mayor??a de las veces, los CVP son inofensivos. César ciertas cosas pueden ayudar a desencadenar aria se??al prematura en los ventr??culos. Estos incluyen: ? Avance de la edad. ? Reducci??n del flujo sangu??carmen a beaver coraz??n (seven arteriopat??a coronaria). ? Cicatrizaci??n despu??s de un coraz??n ataque. ? Problemas electrol??ticos, seven niveles bajos de sodio o potasio. ? cafe??na. ? Alcohol. ? Nicotina. ? F??rmacos ilegales, seven la coca??na y la metanfetamina. ? Aumento de la adrenalina, seven con ansiedad. ? Determinados medicamentos, seven digoxina. ? Problemas endocrinos (hormonales), seven hipertiroidismo (demasiada hormona tiroidea). Muchas afecciones card??acas aumentan el riesgo de CVP. Estos incluyen: ? presi??n arterial pelon; ? Infarto de miocardio. ? Cardiopat??a coronaria. ? miocardiopat??a dilatada; ? Hipertr??fico miocardiopat??a. ? Cardiopat??a betty??karlos. ? insuficiencia card??megan. Los CVP suelen darse en personas que s?? lo hacen no padecen ninguna enfermedad card??megan. césar sonalgo m??s frecuentes en personas con alg??n tipo de cardiopat??a. ??Cu??les son los s??ntomas de los CVP? La mayor??a de las personas con CVP ocasionales no presentan s??ntomas. Cuantos m??s PVC tenga, m??s probable ser?? que los sienta. Cuando se producen s??ntomas, suelen ser leves. Los s??ntomas pueden incluir: ? Conocimiento del coraz??n latidos. ? Aleteo o chancla sensaci??n en el pecho. ? Sensaci??n de ?saltar? o Latido card??aco ?extra?. ? Mareos y nely desmayos. ? Aria sensaci??n de pulsos en el chana. Los CVP pueden causar s??ntomas m??s graves si tiene otro problema card??aco, seven insuficiencia card??megan. ??C??mo se diagnostican los CVP? Beaver m??dico le jason?? preguntas sobre beaver los antecedentes m??dicos y hacerle aria exploraci??n f??purvi. La prueba principal es un electrocardiograma (ECG). para el diagn??stico. Esta prueba registra la actividad el??ctrica del coraz??n. [place] un ECG, se colocan zachariah??os parches (electrodos) en el pecho, los brazos y las piernas. Los conductores conectan las almohadillas a aria m??quina que registra las se??ales el??ctricas del coraz??n. Esta prueba permite m??dico para observar la se??al de los latidos card??acos jameson un breve periodo de tiempo. Cualquier PVC que se produzca jameson wen tiempo aparecer?? en el ECG. En algunos casos, beaver m??dico puede aconsejarle monitorizaci??n mediante ECG en casa o port??til jameson unos d??as o incluso semanas. [place] puede ayudar a diagnosticar los CVP que no ocurren con frecuencia. Hay varios tipos de monitores card??acos: ? Monitor Holter. Wen monitor es un caja zachariah??a con los alambres conectados a las almohadillas del pecho. La lleva jameson 1 o 2 d??as. Es proporciona un registro rajat de la actividad card??megan. Aria vez realizada la prueba, beaver m??dico analiza el registro. ? Monitores de acontecimientos. Estos monitores son tambi??n zachariah??os recuadros con agujas conectados a compresas en el pecho. Por lo general, se llevan de 3 a 4 semanas. César pueden usarse jameson varios meses. Un tipo es un bucle de memoria grabador. Wen monitor registra constantemente. César guarda la inscripci??n solo cuando pulse un bot??n. El otro tipo es un grabador del yaenly??o de aria tarjeta de cr??dito. Wen monitor es solo se activa jameson un episodio. Con ambos tipos, se env??an los registros de s??ntomas a beaver m??dico por tel??fono. ? Cardiolog??a m??quan telemetr??a ambulatoria. Wen tipo de monitor de acontecimientos suele utilizarse hasta jameson 30 d??as. Utiliza tecnolog??a de tel??fonos m??viles para enviar datos en tiempo real a un centro de vigilancia donde los t??cnicos formados pueden revisarlo. O puede ponerse en contacto con un m??dico un problema potencialmente mortal. ? Monitor de parche. Se trata de un zachariah??o parche adhesivo autocontenido que puede registrar beaver ritmo card??aco jameson hasta 2 semanas. ? Insertable (o monitor card??aco implantable). Wen zachariah??o dispositivo se implanta bajo la piel.Puede usarse para llevar un registro del ritmo card??aco jameson varios a??os. ? A nivel comercial monitores de ritmo card??aco ponibles disponibles. Entre ellos se incluyen el opulseras. Pueden ser ??tiles para encontrar ritmos card??acos an??malos. Estas pueden ser las ??nicas pruebas que necesitar?? el m??dico. Es posible que necesite m??s pruebas si tiene CVP con frecuencia o muchos seguidos. Beaver m??dico puede examinar otras causas, incluidos posibles problemas card??acos. Estas pruebas podr??an incluir: ? Ecocardiograf??a. Esta prueba utiliza ecograf??a para evaluar la estructura y el funcionamiento del coraz??n. ? Pruebas de esfuerzo card??aco. Esta prueba comprueba c??mo beaver coraz??n responde al ejercicio y eval??a el flujo sangu??carmen de las arterias card??acas. ? TAC o RM card??acas. Estas pruebas de imagen proporcionan informaci??n detallada im??genes del coraz??n. ? An??lisis de mushtaq. [place] se hace para comprobar los electrolitos y concentraciones tiroideas. Last Reviewed Date: 2024 00:00:00 ?? [id number] [employer]. All rights reserved. This information is not intended as a substitute for professional medical care. Always follow your healthcare professional's instructions. * Gabriel Singh - Brittaney Dumas RN - 06/18/2025 6:28 PM EDT Images from the original note were not included. [id number] Treatment for Premature Ventricular Contractions (PVCs) Premature ventricular contractions (PVCs) are a type of abnormal heartbeat (arrhythmia). They are very common. They can occur in people of all ages from time to time. They usually cause no symptoms or only mild symptoms. Types of treatment Most people with PVCs don?t need any treatment. If you are treated for another problem with your heart, such as heart disease or heart failure, your PVCs may decrease. For example, you might take a medicine to lower your blood pressure. This may lower your rate of PVCs. In some cases, specific treatment may be done to help prevent PVCs. These are used only if you havesymptoms from PVCs. Choices include: ? Identifying and reducing or eliminating correctable causes or triggers. ? Medicines called beta-blockers or calcium channel blockers ? Other medicines to help prevent arrhythmias ? Catheter ablation, a procedure to destroy the cells in the heart causing the abnormal beats Living with PVCs Your healthcare provider may give you more instructions about how to manage your PVCs, such as: ? Eat a heart-healthy diet. ? Get enough exercise. ? Maintain a healthy weight. ? Don't drink too much alcohol or caffeine, which can set off PVCs. ? Learn to manage stress and fatigue, which can also set off PVCs. ? Get enough good quality sleep. ? Get treatment for your other health conditions, such as high blood pressure. ? Make sure to keep all your medical appointments. ? Check with your healthcare provider before taking any nonprescribed medicines, including herbs, supplements, and recreational drugs. These can overexcite the heart and set off PVCs. When to call your healthcare provider Call your healthcare provider right away if you have any of these: ? Symptoms that get worse over time ? S Near-fainting, ? Sustained palpitations Call 911 Call 911 if any of these occur: ? Sudden shortness of breath ? Fainting ? Vision changes ? Severe headache ? Nausea or vomiting ? dizziness ? confusion Last Reviewed Date: 2024 00:00:00 ?? [id number] [employer]. All rights reserved. This information is not intended as a substitute for professional medical care. Always follow your healthcare professional's instructions. * Gabriel GonsalezALONZO - Brittaney Dumas RN - 06/18/2025 6:28 PM EDT Images from the original note were not included. [id number] Understanding Premature Ventricular Contractions (PVCs) Premature ventricular contractions (PVCs) are a type of abnormal heartbeat (arrhythmia). They are commonly found in people of all ages. How PVCs happen Your heart has 4 chambers: 2 upper atria and 2 lower ventricles. Normally, a special group of pacemaker cells begins the signal to start your heartbeat. These cells are in the sinoatrial (SA) node in the right atrium. The signal quickly travels down your heart?s conduction system. It moves to theleft and right ventricle. As it travels, the signal sets off nearby parts of your heart to contract. This allows your heart to squeeze in a coordinated way. During a PVC, the signal to start your heartbeat instead comes from one of the ventricles. This signal is premature, meaning it happens before the SA node has had a chance to fire. The signal spreadsthrough the rest of your heart, causing a heartbeat. If this happens very soon after the previous heartbeat, your heart will push out very little blood. This causes a feeling of a pause between beats. The next heartbeat is often a stronger one since the pause allows the heart to rest and fill up with blood. This leads to a feeling of an extra heartbeat. So the heart has a ?premature? heartbeat inbetween normal heartbeats. What causes PVCs? Most often, PVCs are harmless. But certain things can help set off a premature signal in the ventricles. These include: ? Advancing age. ? Reduced blood flow to your heart (such as coronary artery disease). ? Scarring after a heart attack. ? Electrolyte problems, such as low sodium or potassium levels. ? Caffeine. ? Alcohol. ? Nicotine. ? Illegal drugs, such as cocaine and methamphetamine. ? Increased adrenaline, such as with anxiety. ? Certain medicines, such as digoxin. ? Endocrine (hormone) problems, such as hyperthyroid (too much thyroid hormone). Many heart conditions raise the risk for PVCs. These include: ? High blood pressure. ? Heart attack. ? Coronary heart disease. ? Dilated cardiomyopathy. ? Hypertrophic cardiomyopathy. ? Congenital heart disease. ? Heart failure. PVCs often happen in people who do not have any heart disease. But they are somewhat more common inpeople with some kind of heart disease. What are the symptoms of PVCs? Most people with occasional PVCs don?t have symptoms. The more PVCs you have, the more likely you are to feel them. When symptoms do happen, they are usually minor. Symptoms may include: ? An awareness of the heart beating. ? A fluttering or flip-flop feeling in your chest. ? Feeling of a skipped or extra heartbeat. ? Dizziness and near-fainting. ? A pulsing sensation in the neck. PVCs may cause more severe symptoms if you have another heart problem, such as heart failure. How are PVCs diagnosed? Your doctor will ask about your health history and give you a physical exam. An electrocardiogram (ECG) is the main test for diagnosis. This test records the electrical activity of your heart. Duringan ECG, small pads (electrodes) are placed on your chest, arms, and legs. Wires connect the pads toa machine, which records your heart?s electrical signals. This test allows your doctor to look at the signal of your heartbeat for a brief time. Any PVCs that occur during this time will show up on the ECG. In some cases, your doctor might advise at-home or portable ECG monitoring over a few days or even weeks. This can help to diagnose PVCs that don?t happen often. There are several types of heart monitors: ? Holter monitor. This monitor is a small box with wires connected to pads on your chest. You wear it for 1 to 2 days. It provides a constant recording of heart activity. After the test is done, yourdoctor analyzes the recording. ? Event monitors. These monitors are also small boxes with wires connected to pads on your chest. They are generally worn for 3 to 4 weeks. But they can be used for several months. One kind is a memory loop recorder. This monitor records constantly. But it stores the recording only when you press abutton. The other kind is a credit card-sized recorder. This monitor is turned on only during an episode. With both types, you send the recordings of symptoms to your doctor over the phone. ? Mobile cardiac outpatient telemetry. This type of event monitor is usually used for up to 30 days. It uses cell phone technology to send data in real time to a monitoring center where trained technicians can review it. Or it can contact a doctor about a life-threatening problem. ? Patch monitor. This is a small self-contained adhesive patch that can record your heart rhythm for up to 2 weeks. ? Insertable (or implantable) monitor tech. This small device is implanted under the skin. It can be used to keep track of the heart rhythm for several years. ? Commercially available wearable heart rhythm monitors. These include smartwatches or wristbands. They may be useful for finding abnormal heart rhythms. These may be the only tests your doctor will need. You may need more testing if you have PVCs often, or many in a row. Your doctor may look at other causes, including possible heart problems. These tests might include: ? Echocardiography. This test uses ultrasound to evaluate your heart?s structure and function. ? Cardiac stress testing. This test checks how your heart responds to exercise and to evaluate heart artery blood flow. ? Cardiac CT or MRI. These imaging tests make detailed pictures of the heart. ? Blood tests. This is done to check electrolyte and thyroid levels. Last Reviewed Date: 2024 00:00:00 ?? [id number] [employer]. All rights reserved. This information is not intended as a substitute for professional medical care. Always follow your healthcare professional's instructions. * Progress Notes - Prashant Aguilar PharmD - 06/18/2025 10:47 AM EDT Antithrombosis Monitoring: Warfarin Bradley Forrest is a 69 y.o. male who has been started on warfarin. Warfarin Indication & Goal Anticoagulation Indication/Goal Warfarin Indication: Mechanical aortic valve Duration of Anticoagulation: Indefinite Target INR: 2.5-3.5 (Goal range per Dr. Clark) Warfarin Prior to Admission: No Assessment Warfarin Drug Interactions Inhibitors of Warfarin Metabolism: HMG Co-A Inhibitors (Statins) Increased Bleeding Risk: Clopidogrel;Low Molecular Weight Heparin Any warfarin reversal given?: No Anticoagulation Assessment Warfarin Sensitivity Risk Factors: Elderly, age > 65;Recent cardiac surgery;Surgery and blood loss Warfarin Sensitivity Score: High (1 or more Warfarin Sensitivity Risk Factors) Nutritional Intake: Minimal PO intake (intake is inconsistent throughout the day) Today's INR : Subtherapeutic Warfarin INR & Dose Trends Date INR Warfarin Dose (mg) Comments 06/15 1.3 4mg pLov started 06/16 1.5 4mg tLov to start 06/16 pm 06/17 1.5 5mg tLov continues 06/18 2.3 4mg tLOV given 06/18 AM then discontinued Plan Anticoagulation Plan Warfarin Pharmacist Managed?: No [facility] Warfarin Dosing Protocol Followed?: No Bridging Agent in Conjunction With Warfarin? : Yes Ordered Agents: Enoxaparin Bridging Agent Dose: 70mg BID INR Monitoring Frequency: Monitor INR daily Patient Education : Complete and documented Warfarin dosing and adjustment per CT surgery provider. Transitions of Care Outpatient provider managing warfarin after [facility] discharge: TBD - possibly clinic Recommended date for outpatient INR assessment: TBD - of note, enoxparin copay $0 for 7 day supply Will continue to follow patient's clinical progress daily. Prashant Aguilar PharmD PGY2 Critical Care Resident Available on secure chat * Progress Notes - Phillip Clark MD - 06/18/2025 8:04 AM EDT Bradley Forrest Patient was seen and examined with resident physicians and CCM. Morning chest x- ray reviewed. Labs in last 18 hours CBC WBC 8.51 Hb 10.6 (L) Plt 121 (L) Hct 31.2 (L) ANC ?? INR 2.3 (H), PTT ??, Anti-Xa ?? BMP Na 134 (L) Cl 100 BUN 18 Glu 93 K 3.7 Co2 26 Cr 0.82 Ca 8.1 (L) iCa ?? Mg 2.3, Phos 2.6 Lactate ?? LFT AST ?? AlkPhos ?? T Prot ?? ALK ?? Bili ?? Alb ?? D.Bili ?? Current Scheduled Medications[1] Current Continuous Medications[2] Visit Vitals BP 117/60 (BP Location: Left arm, Patient Position: Lying) Pulse 84 Temp 36.8 ??C (98.3 ??F) (Oral) Ht 1.702 m (5' 7 ) Wt 84.7 kg (186 lb 11.7 oz) SpO2 90% BMI 29.25 kg/m?? Intake/Output Summary (Last 24 hours) at 06/18/2025 0804 Last data filed at 06/18/2025 0200 Gross per 24 hour Intake 410 ml Output 670 ml Net -260 ml Physical Exam Constitutional: General: He is not in acute distress. HENT: Head: Normocephalic and atraumatic. Mouth/Throat: Mouth: Mucous membranes are moist. Eyes: Extraocular Movements: Extraocular movements intact. Cardiovascular: Rate and Rhythm: Normal rate and regular rhythm. Pulmonary: Effort: Pulmonary effort is normal. No respiratory distress. Abdominal: General: There is no distension. Palpations: Abdomen is soft. Skin: General: Skin is warm. Capillary Refill: Capillary refill takes less than 2 seconds. Neurological: General: No focal deficit present. Mental Status: He is alert and oriented to person, place, and time. Psychiatric: Mood and Affect: Mood normal. Judgment: Judgment normal. Sternal incision: well approximated Impression & Plan 69 year old male status post mechanical aortic root replacement on 06/14/25. - warfaring 4mg today, daily INR - may need alternating dosing - stop therapeutic lovenox -plavix -continue beta jade -PO lasix -OOB/mobilize -PT/OT -telemetry status [1] acetaminophen, 650 mg, Oral, q4h DEMETRIUS clopidogrel, 75 mg, Oral, Daily docusate sodium, 200 mg, Oral, BID empagliflozin, 10 mg, Oral, Daily enoxaparin, 0.75 mg/kg, Subcutaneous, q12h ezetimibe, 10 mg, Oral, Daily Apollo, 1 packet, Oral, BID losartan, 25 mg, Oral, BID melatonin, 9 mg, Oral, Nightly methocarbamol, 500 mg, Oral, TID metoprolol tartrate, 25 mg, Oral, BID mupirocin, 1 Application, Each Nostril, BID pantoprazole, 40 mg, Oral, Daily phosphorus, 1 tablet, Oral, q8h polyethylene glycol, 17 g, Oral, Daily rosuvastatin, 40 mg, Oral, Nightly senna, 17.2 mg, Oral, BID sodium chloride, 10 mL, Intravenous, q12h warfarin, 5 mg, Oral, Daily [2] * Care Plan - Brittaney Dumas RN - 06/18/2025 8:00 AM EDT Problem: Adult Inpatient Plan of Care Goal: Plan of Care Review Outcome: Ongoing, Progressing Flowsheets (Taken 06/18/2025 005 by Lori Molina, RN) Progress: improving Outcome Evaluation: Plan of care discussed with pt and family Plan of Care Reviewed With: patient family Goal: Patient-Specific Goal (Individualized) Outcome: Ongoing, Progressing Goal: Absence of Hospital-Acquired Illness or Injury Outcome: Ongoing, Progressing Goal: Optimal Comfort and Wellbeing Outcome: Ongoing, Progressing Problem: Infection Goal: Absence of Infection Signs and Symptoms Outcome: Ongoing, Progressing Problem: Cardiovascular Surgery Goal: Improved Activity Tolerance Outcome: Ongoing, Progressing Goal: Optimal Coping with Heart Surgery Outcome: Ongoing, Progressing Goal: Absence of Bleeding Outcome: Ongoing, Progressing Goal: Effective Bowel Elimination Outcome: Ongoing, Progressing Goal: Effective Cardiac Function Outcome: Ongoing, Progressing Goal: Optimal Cerebral Tissue Perfusion Outcome: Ongoing, Progressing Goal: Fluid and Electrolyte Balance Outcome: Ongoing, Progressing Goal: Blood Glucose Level Within Target Range Outcome: Ongoing, Progressing Goal: Absence of Infection Signs and Symptoms Outcome: Ongoing, Progressing Goal: Acceptable Pain Control Outcome: Ongoing, Progressing Goal: Nausea and Vomiting Relief Outcome: Ongoing, Progressing Goal: Effective Urinary Elimination Outcome: Ongoing, Progressing Goal: Effective Oxygenation and Ventilation Outcome: Ongoing, Progressing Problem: Fall Injury Risk Goal: Absence of Fall and Fall-Related Injury Outcome: Ongoing, Progressing Problem: Pain Acute Goal: Optimal Pain Control and Function Outcome: Ongoing, Progressing Problem: Mobility Impairment Goal: Optimal Mobility Outcome: Ongoing, Progressing Problem: Self-Care Deficit Goal: Improved Ability to Complete Activities of Daily Living Outcome: Ongoing, Progressing Problem: Wound Goal: Optimal Coping Outcome: Ongoing, Progressing Goal: Optimal Functional Ability Outcome: Ongoing, Progressing Goal: Absence of Infection Signs and Symptoms Outcome: Ongoing, Progressing Goal: Improved Oral Intake Outcome: Ongoing, Progressing Goal: Optimal Pain Control and Function Outcome: Ongoing, Progressing Goal: Skin Health and Integrity Outcome: Ongoing, Progressing Goal: Optimal Wound Healing Outcome: Ongoing, Progressing Problem: Self-Care Deficit Goal: Improved Ability to Complete Activities of Daily Living Outcome: Ongoing, Progressing * Care Plan - Lori Molina RN - 06/18/2025 1:04 AM EDT Problem: Adult Inpatient Plan of Care Goal: Plan of Care Review Outcome: Ongoing, Progressing Flowsheets (Taken 06/18/2025 0059) Progress: improving Outcome Evaluation: Plan of care discussed with pt and family Plan of Care Reviewed With: patient family Goal: Patient-Specific Goal (Individualized) Outcome: Ongoing, Progressing Flowsheets (Taken 06/17/20251999) Patient/Family-Specific Goals (Include Timeframe): Pt will remain free from injury throughout this shift Individualized Care Needs: Safety Anxieties, Fears or Concerns: None stated Goal: Absence of Hospital-Acquired Illness or Injury Outcome: Ongoing, Progressing Intervention: Identify and Manage Fall Risk Flowsheets (Taken 06/17/20251999) Safety Promotion/Fall Prevention: activity supervised assistive device/personal items within reach clutter-free environment maintained fall prevention program maintained lighting adjusted mobility aid in reach nonskid shoes/slippers when out of bed room organization consistent safety round/check completed toileting scheduled Intervention: Prevent Skin Injury Flowsheets Taken 06/18/2025 0000 Body Position: weight shifting Taken 06/17/2025 0109 Skin Protection: incontinence pads utilized transparent dressing maintained Intervention: Prevent and Manage VTE (Venous Thromboembolism) Risk Flowsheets (Taken 06/18/202558) VTE Prevention/Management: medication Intervention: Prevent Infection Flowsheets (Taken 06/17/2025108) Infection Prevention: environmental surveillance performed equipment surfaces disinfected hand hygiene promoted rest/sleep promoted single patient room provided Goal: Optimal Comfort and Wellbeing Outcome: Ongoing, Progressing Intervention: Monitor Pain and Promote Comfort Flowsheets (Taken 06/18/202558) Pain Management Interventions: medication (see MAR) pillow support provided position adjusted relaxation techniques promoted Intervention: Provide Person-Centered Care Flowsheets (Taken 06/18/202558) Trust Relationship/Rapport: care explained choices provided questions answered questions encouraged Problem: Infection Goal: Absence of Infection Signs and Symptoms Outcome: Ongoing, Progressing Intervention: Prevent or Manage Infection Flowsheets Taken 06/18/202558 Infection Management: aseptic technique maintained Fever Reduction/Comfort Measures: lightweight bedding lightweight clothing Taken 06/17/20251999 Isolation Precautions: precautions maintained protective Problem: Cardiovascular Surgery Goal: Improved Activity Tolerance Outcome: Ongoing, Progressing Intervention: Optimize Tolerance for Activity Flowsheets (Taken 06/18/202558) Environmental Support: calm environment promoted caregiver consistency promoted distractions minimized environmental consistency promoted rest periods encouraged personal routine supported Self-Care Promotion: independence encouraged Goal: Optimal Coping with Heart Surgery Outcome: Ongoing, Progressing Intervention: Support Psychosocial Response to Surgery Flowsheets (Taken 06/17/2025108) Supportive Measures: active listening utilized self-care encouraged relaxation techniques promoted Family/Support System Care: caregiver stress acknowledged Goal: Absence of Bleeding Outcome: Ongoing, Progressing Intervention: Monitor and Manage Bleeding Flowsheets (Taken 06/18/202558) Bleeding Management: dressing monitored Goal: Effective Bowel Elimination Outcome: Ongoing, Progressing Intervention: Enhance Bowel Motility and Elimination Flowsheets (Taken 06/17/2025108) Bowel Elimination Management: relaxation techniques promoted toileting offered Bowel Motility Enhancement: ambulation promoted fluid intake encouraged Goal: Effective Cardiac Function Outcome: Ongoing, Progressing Intervention: Optimize Cardiac Output and Blood Flow Flowsheets (Taken 06/18/202558) Stabilization Measures: airway opened legs elevated Goal: Optimal Cerebral Tissue Perfusion Outcome: Ongoing, Progressing Intervention: Protect and Optimize Cerebral Perfusion Flowsheets Taken 06/18/202558 Glycemic Management: blood glucose monitored Fever Reduction/Comfort Measures: lightweight bedding lightweight clothing Cerebral Perfusion Promotion: blood pressure monitored Taken 06/18/2025 0000 Head of Bed (HOB) Positioning: HOB elevated Taken 06/17/2025108 Sensory Stimulation Regulation: care clustered lighting decreased quiet environment promoted visual stimulation minimized Goal: Fluid and Electrolyte Balance Outcome: Ongoing, Progressing Intervention: Monitor and Manage Fluid and Electrolyte Balance Flowsheets (Taken 06/18/202558) Fluid/Electrolyte Management: fluids adjusted electrolyte supplement adjusted Goal: Blood Glucose Level Within Target Range Outcome: Ongoing, Progressing Intervention: Optimize Glycemic Control Flowsheets (Taken 06/18/202558) Glycemic Management: blood glucose monitored Goal: Absence of Infection Signs and Symptoms Outcome: Ongoing, Progressing Intervention: Prevent or Manage Infection Flowsheets Taken 06/18/202558 Fever Reduction/Comfort Measures: lightweight bedding lightweight clothing Taken 06/17/2025108 Infection Prevention: environmental surveillance performed equipment surfaces disinfected hand hygiene promoted rest/sleep promoted single patient room provided Goal: Anesthesia/Sedation Recovery Outcome: Met Intervention: Optimize Anesthesia Recovery Flowsheets Taken 06/18/202558 Stabilization Measures: airway opened legs elevated Taken 06/18/2025 Administration (IS): self-administered Taken 06/17/20251999 Patient Tolerance (IS): good Safety Promotion/Fall Prevention: activity supervised assistive device/personal items within reach clutter-free environment maintained fall prevention program maintained lighting adjusted mobility aid in reach nonskid shoes/slippers when out of bed room organization consistent safety round/check completed toileting scheduled Level Incentive Spirometer (mL): 1000 Incentive Spirometer Predicted Level (mL): 1500 Number of Repetitions (IS): 5 Taken 06/17/2025108 Reorientation Measures: calendar in view familiar social contact encouraged Goal: Acceptable Pain Control Outcome: Ongoing, Progressing Intervention: Prevent or Manage Pain Flowsheets (Taken 06/18/202558) Pain Management Interventions: medication (see MAR) pillow support provided position adjusted relaxation techniques promoted Diversional Activities: television Goal: Nausea and Vomiting Relief Outcome: Ongoing, Progressing Intervention: Prevent or Manage Nausea and Vomiting Flowsheets (Taken 06/17/2025108) Nausea/Vomiting Interventions: slow deep breathing encouraged Goal: Effective Urinary Elimination Outcome: Ongoing, Progressing Intervention: Monitor and Manage Urinary Retention Flowsheets (Taken 06/17/2025108) Urinary Elimination Promotion: toileting offered toileting scheduled toileting device within reach Goal: Effective Oxygenation and Ventilation Outcome: Ongoing, Progressing Intervention: Promote Airway Secretion Clearance Flowsheets Taken 06/18/2025 Administration (IS): self-administered Cough And Deep Breathing: done independently per patient Taken 06/17/20251999 Patient Tolerance (IS): good Level Incentive Spirometer (mL): 1000 Incentive Spirometer Predicted Level (mL): 1500 Number of Repetitions (IS): 5 Taken 06/17/2025108 Airway/Ventilation Management: airway patency maintained Intervention: Optimize Oxygenation and Ventilation Flowsheets (Taken 06/18/202558) Chest Tube Safety: all connections secured Problem: Fall Injury Risk Goal: Absence of Fall and Fall-Related Injury Outcome: Ongoing, Progressing Intervention: Identify and Manage Contributors Flowsheets (Taken 06/18/202558) Medication Review/Management: medications reviewed Self-Care Promotion: independence encouraged Intervention: Promote Injury-Free Environment Flowsheets (Taken 06/17/20251999) Safety Promotion/Fall Prevention: activity supervised assistive device/personal items within reach clutter-free environment maintained fall prevention program maintained lighting adjusted mobility aid in reach nonskid shoes/slippers when out of bed room organization consistent safety round/check completed toileting scheduled Problem: Pain Acute Goal: Optimal Pain Control and Function Outcome: Ongoing, Progressing Intervention: Optimize Psychosocial Wellbeing Flowsheets Taken 06/18/202558 Diversional Activities: television Taken 06/17/2025108 Supportive Measures: active listening utilized self-care encouraged relaxation techniques promoted Spiritual Activities Assistance: affirmation provided Intervention: Develop Pain Management Plan Flowsheets (Taken 06/18/202558) Pain Management Interventions: medication (see MAR) pillow support provided position adjusted relaxation techniques promoted Intervention: Prevent or Manage Pain Flowsheets Taken 06/18/202558 Medication Review/Management: medications reviewed Taken 06/17/2025108 Sensory Stimulation Regulation: care clustered lighting decreased quiet environment promoted visual stimulation minimized Bowel Elimination Promotion: diet adjusted ambulation promoted adequate fluid intake promoted Sleep/Rest Enhancement: awakenings minimized room darkened Problem: Mobility Impairment Goal: Optimal Mobility Outcome: Ongoing, Progressing Intervention: Optimize Mobility Flowsheets Taken 06/18/2025 Activity Management: activity encouraged dorsiflexion/plantar flexion performed Taken 06/17/2025108 Assistive Device Utilized: four wheel walker Positioning/Transfer Devices: pillows Problem: Self-Care Deficit Goal: Improved Ability to Complete Activities of Daily Living Outcome: Ongoing, Progressing Intervention: Promote Activity and Functional [place] Flowsheets (Taken 06/18/202558) Activity Assistance Provided: assistance, 1 person Self-Care Promotion: independence encouraged Problem: Self-Care Deficit Goal: Improved Ability to Complete Activities of Daily Living Outcome: Ongoing, Progressing Intervention: Promote Activity and Functional [place] Flowsheets (Taken 06/18/202558) Activity Assistance Provided: assistance, 1 person Self-Care Promotion: independence encouraged Problem: Wound Goal: Optimal Coping Outcome: Ongoing, Progressing Intervention: Support Patient and Family Response Flowsheets (Taken 06/17/2025108) Supportive Measures: active listening utilized self-care encouraged relaxation techniques promoted Family/Support System Care: caregiver stress acknowledged Goal: Optimal Functional Ability Outcome: Ongoing, Progressing Intervention: Optimize Functional Ability Flowsheets Taken 06/18/202558 Activity Assistance Provided: assistance, 1 person Taken 06/18/2025 Activity Management: activity encouraged dorsiflexion/plantar flexion performed Taken 06/17/2025108 Assistive Device Utilized: four wheel walker Goal: Absence of Infection Signs and Symptoms Outcome: Ongoing, Progressing Intervention: Prevent or Manage Infection Flowsheets Taken 06/18/202558 Infection Management: aseptic technique maintained Fever Reduction/Comfort Measures: lightweight bedding lightweight clothing Taken 06/17/20251999 Isolation Precautions: precautions maintained protective Goal: Improved Oral Intake Outcome: Ongoing, Progressing Intervention: Promote and Optimize Oral Intake Flowsheets (Taken 06/17/2025108) Oral Nutrition Promotion: rest periods promoted Nutrition Interventions: diet adjusted Goal: Optimal Pain Control and Function Outcome: Ongoing, Progressing Intervention: Prevent or Manage Pain Flowsheets Taken 06/18/202558 Pain Management Interventions: medication (see MAR) pillow support provided position adjusted relaxation techniques promoted Taken 06/17/2025108 Sleep/Rest Enhancement: awakenings minimized room darkened Goal: Skin Health and Integrity Outcome: Ongoing, Progressing Intervention: Optimize Skin Protection Flowsheets Taken 06/18/2025 Activity Management: activity encouraged dorsiflexion/plantar flexion performed Head of Bed (HOB) Positioning: HOB elevated Taken 06/17/2025108 Pressure Reduction Techniques: frequent weight shift encouraged heels elevated off bed Pressure Reduction Devices: chair cushion utilized heel offloading device utilized Skin Protection: tubing/devices free from skin contact Goal: Optimal Wound Healing Outcome: Ongoing, Progressing Intervention: Promote Wound Healing Flowsheets (Taken 06/17/2025 0109) Sleep/Rest Enhancement: awakenings minimized room darkened * Hospital Course - Barbara Sosa PA - 06/17/2025 3:58 PM EDT * Query Clarification Note - Daphne Schrader MD - 06/17/2025 1:06 PM EDT Which of the following diagnoses best reflects the above abnormalities being monitored/evaluated: [x]Acute blood loss anemia []Other anemia, please specify type []Other, please specify This documentation will become part of the patient's medical record. * Sydni Samuel RN - 06/17/2025 12:42 PM EDT Images from the original note were not included. [id number] Warfarin IMPORTANT WARNING: Warfarin may cause severe bleeding that can be life-threatening and even cause . Tell your doctor if you have or have ever had a blood or bleeding disorder; bleeding problems, especially in yourstomach or your esophagus (tube from the throat to the stomach), intestines, urinary tract or bladder, or lungs; high blood pressure; heart attack; angina (chest pain or pressure); heart disease; pericarditis (swelling of the lining (sac) around the heart); endocarditis (infection of one or more heart valves); a stroke or ministroke; aneurysm (weakening or tearing of an artery or vein); anemia (low number of red blood cells in the blood); cancer; chronic diarrhea; or kidney, or liver disease. Also tell your doctor if you fall often or have had a recent serious injury or surgery. Bleeding is more likely during warfarin treatment for people over 65 years of age, and it is also more likely during the first month of warfarin treatment. Bleeding is also more likely to occur for people who take high doses of warfarin, or take this medication for a long time. The risk for bleeding while takingwarfarin is also higher for people participating in an activity or sport that may result in seriousinjury. Tell your doctor and pharmacist if you are taking or plan to take any prescription or nonprescription medications, vitamins, nutritional supplements, and herbal or botanical products (See SPECIAL PRECAUTIONS), as some of these products may increase the risk for bleeding while you are takingwarfarin. If you experience any of the following symptoms, call your doctor immediately: pain, swelling, or discomfort, bleeding from a cut that does not stop in the usual amount of time, nosebleeds or bleeding from your gums, coughing up or vomiting blood or material that looks like coffee grounds, unusual bleeding or bruising, increased menstrual flow or vaginal bleeding, pink, red, or dark brown urine, red or tarry black bowel movements, headache, dizziness, or weakness. Some people may respond differently to warfarin based on their heredity or genetic make-up. Your doctor may order a blood test to help find the dose of warfarin that is best for you. Warfarin prevents blood from clotting so it may take longer than usual for you to stop bleeding if you are cut or injured. Avoid activities or sports that have a high risk of causing injury. Call your doctor if bleeding is unusual or if you fall and get hurt, especially if you hit your head. Keep all appointments with your doctor and the laboratory. Your doctor will order a blood test (PT [prothrombin test] reported as INR [international normalized ratio] value) regularly to check your body's response to warfarin. If your doctor tells you to stop taking warfarin, the effects of this medication may last for 2 to 5 days after you stop taking it. Your doctor or pharmacist will give you the [employer] patient information sheet (Medication Guide) when you begin treatment with warfarin and each time you refill your prescription. Read the information carefully and ask your doctor or pharmacist if you have any questions. You can also visit the Food and Drug Administration (FDA) website (https://www.fda.gov/downloads/Drugs/DrugSafety/ezv060458.pdf) or the [employer] website to obtain the Medication Guide. Talk to your doctor about the risk(s) of taking warfarin. WHY is this medicine prescribed? Warfarin is used to prevent blood clots from forming or growing larger in your blood and blood vessels. It is prescribed for people with certain types of irregular heartbeat, people with prosthetic (replacement or mechanical) heart valves, and people who have suffered a heart attack. Warfarin is also used to treat or prevent venous thrombosis (swelling and blood clot in a vein) and pulmonary embolism (a blood clot in the lung). Warfarin is in a class of medications called anticoagulants ('bloodthinners'). It works by decreasing the clotting ability of the blood. HOW should this medicine be used? Warfarin comes as a tablet to take by mouth. It is usually taken once a day with or without food. Take warfarin at around the same time every day. Follow the directions on your prescription label carefully, and ask your doctor or pharmacist to explain any part you do not understand. Take warfarin exactly as directed. Do not take more or less of it or take it more often than prescribed by your doctor. Call your doctor immediately if you take more than your prescribed dose of warfarin. Your doctor will probably start you on a low dose of warfarin and gradually increase or decrease your dose based on the results of your blood tests. Make sure you understand any new dosing instructions from your doctor. Continue to take warfarin even if you feel well. Do not stop taking warfarin without talking to your doctor. Are there OTHER USES for this medicine? This medication may be prescribed for other uses; ask your doctor or pharmacist for more information. What SPECIAL PRECAUTIONS should I follow? Before taking warfarin, ? tell your doctor and pharmacist if you are allergic to warfarin, any other medications, or any ofthe ingredients in warfarin tablets. Ask your pharmacist or check the Medication Guide for a list of the ingredients. ? do not take two or more medications that contain warfarin at the same time. Be sure to check withyour doctor or pharmacist if you are uncertain if a medication contains warfarin or warfarin sodium. ? tell your doctor and pharmacist what prescription and nonprescription medications, vitamins, and nutritional supplements you are taking or plan to take while taking warfarin. Your doctor may changethe doses of your medications or monitor you carefully for side effects. ? the following nonprescription or herbal products may interact with warfarin: coenzyme Q10 (Ubidecarenone), Echinacea, garlic, Ginkgo biloba, ginseng, goldenseal, and [place]'s wort; omeprazole (Prilosec); famotidine (Pepcid AC); aspirin and nonsteroidal anti-inflammatory drugs (NSAIDS) such as ibuprofen (Advil, Motrin, others) and naproxen (Aleve). Be sure to let your doctor and pharmacist know that you are taking these medications before you start taking warfarin. Do not start any of these medications while taking warfarin without discussing with your healthcare provider. ? tell your doctor if you have or have ever had diabetes. Also tell your doctor if you have an infection, a gastrointestinal illness such as diarrhea, or sprue (an allergic reaction to protein found in grains that causes diarrhea), or an indwelling catheter (a flexible plastic tube that is placed into the bladder to allow the urine to drain out). ? Tell your doctor if you are , think you might be , or plan to become while taking warfarin. women should not take warfarin unless they have a mechanical heart valve. Talk to your doctor about the use of effective control while taking warfarin. If you become while taking warfarin, call your doctor immediately. Warfarin may harm the fetus. ? tell your doctor if you are breast-feeding. ? if you are having surgery, including dental surgery, or any type of medical or dental procedure, tell the doctor or dentist that you are taking warfarin. Your doctor may tell you to stop taking warfarin before the surgery or procedure or change your dosage of warfarin before the surgery or procedure. Follow your doctor's directions carefully and keep all appointments with the laboratory if yourdoctor orders blood tests to find the best dose of warfarin for you. ? ask your doctor about the safe use of alcoholic beverages while you are taking warfarin. ? tell your doctor if you use tobacco products. Cigarette smoking may decrease the effectiveness ofthis medication. What SPECIAL DIETARY instructions should I follow? Eat a normal, healthy diet. Some foods and beverages, particularly those that contain vitamin K, can affect how warfarin works for you. Ask your doctor or pharmacist for a list of foods that contain vitamin K. Eat consistent amounts of vitamin K-containing food on a ovkh-mt-ynxj basis. Do not eat large amounts of leafy, green vegetables or certain vegetable oils that contain large amounts of vitamin K. Be sure to talk to your doctor before you make any changes in your diet. Talk to your doctor about eating grapefruit and drinking grapefruit juice while taking this medication. What should I do IF I FORGET to take a dose? Take the missed dose as soon as you remember it, if it is the same day that you were to take the dose. Do not take a double dose the next day to make up for a missed one. Call your doctor if you hubert dose of warfarin. What SIDE EFFECTS can this medicine cause? If you experience any of the following symptoms, or those listed in the IMPORTANT WARNING section, call your doctor immediately: ? hives ? rash ? itching ? difficulty breathing or swallowing ? swelling of the face, throat, tongue, lips, or eyes ? hoarseness ? chest pain or pressure ? swelling of the hands, feet, ankles, or lower legs ? fever ? infection ? nausea ? vomiting ? diarrhea ? extreme tiredness ? lack of energy ? loss of appetite ? pain in the upper right part of the stomach ? yellowing of the skin or eyes ? flu-like symptoms You should know that warfarin may cause necrosis or gangrene ( of skin or other body tissues).Call your doctor immediately if you notice a purplish or darkened color to your skin, skin changes,ulcers, or an unusual problem in any area of your skin or body, or if you have a severe pain that occurs suddenly, or color or temperature change in any area of your body. Call your doctor immediately if your toes become painful or become purple or dark in color. You may need medical care right away to prevent amputation (removal) of your affected body part. Warfarin may cause other side effects. Call your doctor if you have any unusual problems while taking this medication. What should I know about STORAGE and DISPOSAL of this medication? Keep this medication in the container it came in, tightly closed, and out of reach of children. Store it at room temperature and away from excess heat, moisture (not in the bathroom), and light. Dispose of unneeded medications in a way so that pets, children, and other people cannot take them.Do not flush this medication down the toilet. Use a medicine take-back program. Talk to your pharmacist about take-back programs in your community. Visit the FDA's Safe Disposal of Medicines website h ttps://goo.gl/c4Rm4p for more information. Keep all medication out of sight and reach of children as many containers are not child-resistant. Always lock safety caps. Place the medication in a safe location - one that is up and away and out of their sight and reach. https://www.upandaway.org What should I do in case of OVERDOSE? In case of overdose, call the poison control helpline at . Information is also available online at https://www.poisonhelp.org/help. If the victim has collapsed, had a seizure, has trouble breathing, or can't be awakened, immediately call emergency services at 761. Symptoms of overdose may include the following: ? bloody or red, or tarry bowel movements ? spitting or coughing up blood ? heavy bleeding with your menstrual period ? pink, red, or dark brown urine ? coughing up or vomiting material that looks like coffee grounds ? small, flat, round red spots under the skin ? unusual bruising or bleeding ? continued oozing or bleeding from minor cuts What OTHER INFORMATION should I know? Carry an identification card or wear a bracelet stating that you take warfarin. Ask your pharmacistor doctor how to obtain this card or bracelet. List your name, medical problems, medications and dosages, and doctor's name and telephone number on the card. Tell all your healthcare providers that you take warfarin. Do not let anyone else take your medication. Ask your pharmacist any questions you have about refilling your prescription. Keep a written list of all of the prescription and nonprescription (beer-jed-ozbbuug) medicines, vitamins, minerals, and dietary supplements you are taking. Bring this list with you each time you visit a doctor or if you are admitted to the hospital. You should carry the list with you in case of marlee rgencies. Brand Name(s): ? Coumadin?? ? Jantoven?? also available generically This report on medications is for your information only, and is not considered individual patient advice. Because of the changing nature of drug information, please consult your physician or pharmacist about specific clinical use. The [employer] represents that the information provided hereunder was formulated with a reasonable standard of care, and in conformity with professional standards in the field. The [employer] makes no representations or warranties, express or implied, including, but not limited to, any implied warranty of merchantability and/or fitness for a particular purpose, with respect to such information and specifically disclaims all such warranties. Users are advised that decisions regarding drug therapy are complex medical decisions requiring the independent, informed decision of an appropriate health care coordinator, and the information is provided for informational purposes only. The entire monograph for a drug should be reviewed for a thorough understanding of the drug's actions, uses and side effects. The [employer] does not endorse or recommend the use of any drug.The information is not a substitute for medical care. AHFS?? Patient Medication Information?. ?? Copyright, 2023. The [employer]??, [address], [address], [place], [place]. All Rights Reserved. Duplication for commercial use must be authorized by [facility]. Selected Revisions: February 13, 2017. AHFS?? Patient Medication Information?. ?? Copyright, 2024 * Gabriel Singh - Sydni Munson RN - 06/17/2025 12:42 PM EDT Images from the original note were not included. [address] Recovery From Heart Surgery: The First Few Weeks During the first few weeks after heart surgery, you?ll be regaining your energy and strength. Your health care provider will let you know what you can and can?t do as you get better. Take things slowly. And rest when you get tired. Walking Walking is one of the easiest and best ways to help yourself get better. When you walk, your legs pump blood to your heart. This improves blood flow throughout your body. Choose a safe place with a level surface. A local park or a mall are good choices. Start by walking for 5 minutes. Walk a littlelonger each day. And walk with a friend if you can. Driving Your body needs to heal before you drive. Your reflexes will be slow for a while. And some of your medicines can make you drowsy. Let others drive until your surgeon says you can drive again. Wear your seat belt when you are in a car. Lifting For the first 6 weeks, don?t lift, push, or pull more than 10 pounds ( 4.5 kg). Your health care provider may give you specific limits on how much you can lift. Follow their instructions. Showering You may feel weak the first few times you shower at home. Ask someone to stand nearby in case you need help. Don't use very hot water. It can affect your blood flow and make you dizzy. Working Your health care provider can advise you about the best plan for returning to work. You may be ableto return part-time to a desk job 6 weeks after your surgery. If you have a more active job, check with your surgeon. Sexual activity Sex is generally safe for most people within 2 to 4 weeks after uncomplicated CABG (coronary arterybypass graft) surgery. Talk with your surgeon about when it's safe for you to resume sexual activity. Your feelings It is common to feel a little depressed or frustrated while healing after major surgery. You might feel cheerful and energetic one day. And you may feel cranky and tired the next. You may find it hard to think clearly or to sleep. Or you may not be hungry. These things will get better soon. Try notto withdraw from your family and friends. Keep talking to, listening to, and supporting each other. What to watch for Watch for any signs of infection at your incision site. These include: ? Fever ? Chills ? Redness ? Drainage ? Foul-smelling odor ? Pain that gets worse Call your health care provider if any of these occur. Your provider will show you how to take your pulse. Call your provider right away if you develop a fast, slow, or irregular heartbeat. You may have low blood pressure if you become dizzy but feel better when you sit down. Have someone take your blood pressure or call your provider. If you don't feel better with sitting down, call 911 as noted below. Call 911 Call 911 if any of these occur: ? New or unusual chest pain or a return of the heart symptoms you had before surgery ? New or unusual shortness of breath ? Feeling dizzy or lightheaded, or passing out ? Pulse (heartbeat) is fast (more than 120 beats per minute) or slow (fewer than 50 beats per minute). Or your pulse is irregular, has extra beats, or skips beats. ? Heavy bleeding from the incision site, or bleeding that doesn't stop Last Reviewed Date: 2024 00:00:00 ?? 5890-1324 [employer]. All rights reserved. This information is not intended as a substitute for professional medical care. Always follow your healthcare professional's instructions. * Gabriel Singh - Sydni Munson RN - 06/17/2025 12:42 PM EDT Images from the original note were not included. 1548 After Sternotomy: General Safety You need to protect your chest until it heals. Follow these rules 6-8 weeks after surgery, unless your doctor tells you otherwise. Basic safety steps: 1. When you move, keep your arms as close to your body as you can. 2. Do not push or pull with your arms. 3. Do not lift over 5-10 pounds. For example, a gallon of milk weighs about 10 pounds. 4. You can move your arms through your full range of motion. How to get out of bed Step 1: Lay flat with your arms crossed. Step 2: Roll to either side. Step 3: Kick your legs off the bed. Dig your elbow into the bed and use your stomach to start to sit. Step 4: Keep your arms across your chest as you move to sit. Step 5: Rest your arms on the bed next to your hips. OR rest your arms on your thighs. Step 6: Stand up. Do not use your hands! Do not do these moves when you get out of bed. Do not pull on a bed rail to sit up or lay down. Do not push up on the bed to stand with arms away from body. Do not pull on the bed rails to scoot. Do not do these when someone helps you get out of bed. Do not pull up with your arms to get out of bed. Do not pull up with the arms to get up or stand. How to open a door Correct Your arm should stay close to your body. Incorrect Do not move your arm away from your body to pull. How to walk with a cane Correct Keep your elbow close to your body. Incorrect Do not move your elbow away from your body. How to carry a bag Correct Keep your elbow close to your body. Incorrect Do not move your elbow away from your body. Correct Keep your elbow close to your body. Incorrect Do not move your elbow away from your body. How to use a wheelchair Correct Keep your elbows close to your body to propel the wheelchair. Incorrect Do not propel the wheelchair with your elbows away from your body. How to get in and out of a chair Correct Keep your elbows close to your body. Place your hands next to your thighs to push to stand. Incorrect Do not push up with your elbows away from your body. How to move from a chair to a walker Correct Option 1: Keep walker close. Place your hands on the seat next to your thighs. Keep your arms closeto your body as you push up. Option 2: Place your hands on your thighs. Keep your arms close to your body as you push up. Incorrect Do not pull up with one hand on the walker and push up with the other hand on the chair. Do not pull up or push up with your arms away from your body. How to get up from the toilet Correct Step 1: Place your hands on the seat close to your thighs. Step 2: Keep your arms close to your body as you push up. Step 3: Keep arms close to your body as you stand. Correct - with bedside commode Step 1: Place your hands on the seat close to your thighs. Step 2: Keep your arms close to your body as you push up. Step 3: Keep arms close to your body as you stand. Incorrect Do not push up with your arms away from your body. Do not push or pull with your arms away from your body. * [facility] Sydni Munson RN - 06/17/2025 12:42 PM EDT Images from the original note were not included. [address]51 After Heart Valve Surgery For the first 6 to 8 weeks after surgery, you?ll gain a little more energy and strength each day. Your healthcare provider will discuss what you can and can?t do as you recover. Some days will be easier than others. Remember to take things slowly and rest when you get tired. Walking ? Walking pumps blood to your heart. This improves blood flow all over your whole body. ? Start with a short walk (maybe 5 minutes). Walk for a little longer each day. ? Choose a safe place with a level surface. This might be a local park or mall. ? Wear shoes with good support. This will help prevent injury to knees and ankles. ? Walk with someone. It?s more fun and helps you stay with it. Showering ? Don't use very hot water, especially on the cuts (incisions). It can affect your circulation and make you dizzy. ? Ask someone to stand nearby in case you need help. Driving ? Let others drive you around for the first 4 to 6 weeks after your surgery, or as directed by yourhealthcare provider. ? Motion can make pain worse and injure your breastbone. ? Some of your medicines may make you drowsy. Easing into activity ? After a few weeks, you can start doing light work around your home, such as making simple meals and washing dishes. ? Most healthcare providers advise against lifting anything that weighs more than 5 pounds Your provider may give you a different weight limit. Don't do activities that require raising your arms above the height of your shoulders. For instance, don't reach up to get items from higher shelves. ? Don't do mowing or vacuuming. These motions can strain your breastbone. ? Your provider can advise you about the best plan for returning to work. It will depend on the type of work you do, such as a desk job, or a more active job. ? Discuss with your provider when you can resume having sex. This will depend on the type of surgery you had. For instance, if your breastbone was cut, your provider may advise waiting 2 to 4 weeks. Or waiting until you can easily climb 2 flights of stairs or walk a 1/2 mile. Medicines your healthcare provider may prescribe ? Blood-thinner (anticoagulant). This medicine prevents bleeding or blood clots that could lead to a stroke. ? Antibiotic. This helps prevent infection that could scar and destroy your new heart valve. You'llbe told when to take this medicine. That might be before dental work, surgery, or other medical procedures. When to call your healthcare provider Call your healthcare provider right away if you have any of these: ? Fever of 100.4??F (38??C) or higher, or as advised by your provider ? Chills Call 911 Call 911 if any of these occur: ? New or abnormal chest pain or belly (abdominal) pain ? Feeling dizzy or faintness ? New or abnormal shortness of breath ? Cough up red blood or have red blood in your stool ? Irregular, slow, or fast heart rate ? Sudden numbness in arms, legs, or face ? Sudden severe headache Last Reviewed Date: 2023 00:00:00 ?? [id number] [employer]. All rights reserved. This information is not intended as a substitute for professional medical care. Always follow your healthcare professional's instructions. * Discharge Instr - Other Orders - Sydni Munson RN - 06/17/2025 12:39 PM EDT Please arrive 30 minutes early for your appointment with Dr. Clark Prior to your appointment, go to the radiology department on the 1st floor of the [facility] near [facility] for a chest x-ray. Then go to the lab on the 2nd floor for blood work. Then come to our office on the 3rd floor. Please bring an UPDATED list of medications you are currently taking. * Discharge Instr - Diet - Sydni Munson RN - 06/17/2025 12:39 PM EDT Your food may taste funny, or you may not have much of an appetite. This is normal after surgery and should go away. It is very important for you to follow the Warfarin diet. (Information included) * Discharge Instr - Activity - Sydni Munson RN - 06/17/2025 12:39 PM EDT Take a shower every day. Use a clean washcloth on your incisions every day. Wash your incisions before you wash anywhere else on your body. Do NOT use Neosporin, Peroxide, Betadine, or other ointments on your incisions. Do NOT lift, push, or meat puller 5 pounds for six weeks. Do NOT drive until your physician gives you approval. Move around as you are able. No activity that tires you out. You can ride in the front seat of the car. You can raise both arms at the same time. * Discharge Instr - AVS First Page - Sydni Munson RN - 06/17/2025 12:38 PM EDT Temperature 101.5 or greater. Incisions coming open or draining pus. Pain not relieved by medications. Increased shortness of breath. Increased swelling. For questions or concerns, please contact??? Sydni Munson CT Surgery Nurse Navigator at [phone] Friday through Friday 7am- 3:30pm [facility] [phone] after 3:30 pm, weekends and holidays - ask for the CT surgeon employer relations representative. * Progress Notes - Brooke Valdez PTA - 06/17/2025 11:58 AM EDT Physical Therapy Treatment Patient Name: Bradley Forrest Today's Date: 06/17/2025 Total Treatment Time: 39 min PT Discharge Recommendations: Home with assistance Equipment Recommended: Rollator Subjective The patient states, I am doing okay. Participants in Care Family/Caregiver Present: Yes Family/Caregiver: Spouse, Other (Specify) (sister and brother) Oven Loader: Not Applicable Presentation Oxygen: None (Room air) Telemetry: Yes Lines and Tube: CVC Double Lumen 06/14/25 Right Internal jugular (Active) Peripheral IV 06/14/25 Posterior;Right Hand (Active) Pre-Session: Sitting in chair, Lines intact RN agreeable to session Post-Session: Sitting in chair, Call light in reach, Lines intact, RN notified Patient positioned for comfort and pressure relief. Precautions Medical Precautions: Sternal, Fall precautions Objective Pain Patient complained of pain at sternal incision site; RN aware and administered pain medication prior to session. Delirium Screening RASS: Alert and calm Confusion Assessment Method-ICU (CAM-ICU/PCAM-ICU) Feature 3: Altered Level of Consciousness: Negative Therapeutic Activity (24 minutes) Verbal, visual, and tactile cues provided throughout treatment session for self- pacing, fall prevention, pursed lip breathing and adherence to sternal precautions. Therapist monitored patient's vitalsigns throughout session to assess patient's continued tolerance to activity. Vital signs stable. Please see bed mobility and transfer section for further details. Bed Mobility Bed Mobility Interventions: Verbal cues provided for correct BUE placement and for sequencing. Bed Mobility Exam: Rolling/Turning Level of [place]: Minimum assist (75% patient effort) Physical/Nonphysical Assist: Verbal Cues, Set-up required Bed Mobility Exam: Scooting/Bridging Level of [place]: Minimum assist (75% patient's effort) (to scoot to edge of bed with cues to adhere to sternal precautions) Physical/Nonphysical Assist: Verbal Cues, Set-up required Bed Mobility Exam: Supine to Sit Level of [place]: Minimum assist (75% patient's effort) Physical/Nonphysical Assist: Verbal Cues, Set-up required, Additional assist utilized for safety Bed Mobility Exam: Sit to Supine Level of [place]: Minimum assist (75% patient's effort) Physical/Nonphysical Assist: Verbal Cues, Set-up required, Additional assist utilized for safety Transfers Transfer Intervention: Verbal cues provided for correct bilateral hand and foot placement during sit to stand transfers. Transfer Interventions: The patient stood at the sink for hygiene approximately 8-10 minutes with CGA of 1 person. Transfer Exam: Sit to stand Level of [place]: Contact guard Physical/Nonphysical Assist: Verbal Cues, Set-up required Assistive Device: Rollator Transfer Exam: Stand to Sit Level of [place]: Contact guard Physical/Nonphysical Assist: Verbal Cues, Set-up required Assistive Device: Rollator Gait Training (15 minutes) Device: Rollator Assistance: Contact guard assist, Minimal verbal cues, Minimal tactile cues Distance: 640ft Gait Analysis: decreased maber, decreased bilateral foot clearance, decreased step length, mild forward trunk lean Gait Training Interventions: Verbal cues provided for upright posture, increased stride, improved bilateral foot clearance, safe rollator management and increased body awareness related to walker position. Assessment The patient fatigued easily with all activities and required frequent rest breaks. The patient received cues for safe/improved quality of gait pattern and safe walker management. The patient requirescues to adhere to sternal precautions. The patient is progressing toward all goals per POC. The patient continues to present with the following impairments: decreased strength, decreased balance, decreased activity tolerance and decreased safety awareness. The patient will continue to benefit from skilled PT services to address deficits listed to decrease fall risk and maximize functional mobility levels to promote a safe return to the home. PT Recommendations Discharge Destination: Home with assistance Discharge Equipment: Rollator Plan Continue with established PT plan of care 2 - 5 times per week to progress towards PT goals. PT Goals PT GOAL DETAILS Goal Established Date Time Frame Goal Status PT Goal 1: Pt will perform supine <> sit SBA x1 while maintaining sternal precautions 06/15/25 2 weeks PT Goal 2: Pt will perform sit to stand and bed to chair transfer with SBA x1 and LRAD 06/15/25 2 weeks PT Goal 3: Pt will ambulate 600' SBA x1 with LRAD and no rest breaks or losses of balance 06/15/25 2 weeks PT Goal 4: Pt will be IND with HEP and d/c recs 06/15/25 2 weeks Written by Brooke Valdez PTA on 06/17/25 at 3:19 PM. * Progress Notes - Inge Hagan - 06/17/2025 11:57 AM EDT OCCUPATIONAL THERAPY TREATMENT PATIENT DATA Patient Name Bradley Forrest Session Date 06/17/2025 OT Discharge Recommendations Home with assistance Equipment Recommendations Rollator Discharge Transportation Recommendations Car PRECAUTIONS Medical Precautions Yes Medical Precautions: Sternal, Fall precautions HOME LIVING/SET-UP Lives With Spouse Home Type House Home Equipment Cane Home Layout One level, Stairs to enter with rails 1 Bathroom Layout Walk-in shower, Grab bars Additional Comments Pt reports he will have assist for IADLs, recently had a horse riding accident, breaking several ribs. She is independent but unable to provide substantial physical assistance. 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 Bracing (if applicable) SUBJECTIVE PARTICIPANTS IN CARE Patient/Caregiver Comments Pt agreeable to therapy with good participation. Visitors Present Yes Spouse (sister and brother) Oven Loader (if applicable) OBJECTIVE PAIN Pain Score (0-10): 6 Location: chest sternal Intervention: ambulation/increased activity, position adjusted, and pillow support provided Response: comfortable at end of session DELIRIUM SCREENING RASS: Alert and calm Confusion Assessment Method-ICU (CAM-ICU/PCAM-ICU) Feature 3: Altered Level of Consciousness: Negative COGNITION SCREENING Overall Cognitive Status Within Functional Limits Arousal/Alertness Appropriate responses to stimuli Mood/Behavior Alert Orientation Oriented X4 Command Following Method of Communication Additional Observations INTERVENTIONS SELF-CARE Treatment Minutes (if applicable) 38 Interventions OT promoted adl retraining with pt demonstrating ability to recall sternal precautions with good follow through. Pt completed sit to stand with cga and able to ambulate in hallway for longer distances with sba to cga using rollator walker. He practiced log rolling technique getting inand out of bed with min A. He required mod A for donning socks and sba for toileting and grooming tasks. Level of [place] Adaptive Equipment Utilized Comments Feeding Grooming SBA Standing sinkside stood times 8 minutes in bathroom. Bathing Upper Body Dressing Lower Body Dressing Sock Level of Assistance: Moderate assistance, Minimal verbal cues Toileting SBA Toilet IADLs Health Management Community Re-Entry BALANCE Postural Appearance INTERVENTIONS Level of [place] Balance Support Comments Static Sit Standby assist Feet supported Dynamic Sit Standby assisst Feet supported Dynamic Sitting-Balance: Lateral weight shifts, Anterior/Posterior weight shifts Static Stand Standby assist Right upper extremity support, Left upper extremity support Dynamic Stand Contact guard Right upper extremity support, Left upper extremity support FUNCTIONAL MOBILITY Comments Functional mobility and transfers performed to facilitate participation in ADL routines within home environment and community as part of patient's prior baseline level of participation. Therapist provided verbal/tactile/environmental cues for postural control, hand placement, device management, pacing and weight shifting to promote safety. Level of [place] Physical/Non-physical Assist Adaptive Equipment Utilized Rolling/ Turning Scooting/ Bridging Minimum assist (75% patient's effort) Verbal Cues, Minimal cues, Nonverbal cues (demo/gestures) Supine to Sit Minimum assist (75% patient's effort) Verbal Cues, Nonverbal cues (demo/gestures), Minimal cues Sit to Supine Sit to Stand Contact guard Verbal Cues, Additional assist utilized for safety Rollator Stand to sit Contact guard Verbal Cues, Minimal cues Rollator Bed to Chair Contact guard Sidesteps Verbal Cues, Minimal cues Rollator Toilet Transfer Shower Transfer Additional Transfers ASSESSMENT OT provided adl retraining with focus on improving self care performance in order to return to prior level of function. Pt response to treatment with improved activity tolerance and adl performance. He stood times 8 minutes at sink to perform self care tasks and is sba for toileting and grooming. Recommend home with assist with rollator walker. OT RECOMMENDATIONS Discharge Destination Home with assistance Discharge Equipment Rollator PLAN OT to continue to address adl performance, functional mobility, activity tolerance, balance, and safety. OT GOALS OT GOAL DETAILS Goal Established Date Time Frame Goal Status OT Goal 1: Pt will complete total body dressing skills with modified independence and appropriate adaptive device. 06/15/25 2 weeks OT Goal 2: Pt will complete toileting skills with modified independence and appropriate adaptive device. 06/15/25 2 weeks OT Goal 3: Pt will complete functional transfers with modified independence and appropriate adaptive device to increase independence with toilet transfers. 06/15/25 2 weeks OT Goal 4: Pt will independently adhere to sternal precautions during all ADL tasks and functional transfers. 06/15/25 2 weeks Written by Inge Hagan on 06/17/25 at 2:20 PM. * Progress Notes - Maria Esther Kent PharmD - 06/17/2025 10:20 AM EDT Antithrombosis Monitoring: Warfarin Bradley Forrest is a 69 y.o. male who has been started on warfarin. Warfarin Indication & Goal Anticoagulation Indication/Goal Warfarin Indication: Mechanical aortic valve Duration of Anticoagulation: Indefinite Target INR: 2.5-3.5 (Goal range per Dr. Clark) Warfarin Prior to Admission: No Assessment Warfarin Drug Interactions Inhibitors of Warfarin Metabolism: HMG Co-A Inhibitors (Statins) Increased Bleeding Risk: Clopidogrel;Low Molecular Weight Heparin Any warfarin reversal given?: No Anticoagulation Assessment Warfarin Sensitivity Risk Factors: Elderly, age > 65;Recent cardiac surgery;Surgery and blood loss Warfarin Sensitivity Score: High (1 or more Warfarin Sensitivity Risk Factors) Nutritional Intake: Minimal PO intake (intake is inconsistent throughout the day) Today's INR : Subtherapeutic Warfarin INR & Dose Trends Date INR Warfarin Dose (mg) Comments 06/15 1.3 4mg pLov started 06/16 1.5 4mg tLov to start 06/16 pm 06/17 1.5 5mg tLov continues Plan Anticoagulation Plan Warfarin Pharmacist Managed?: No [facility] Warfarin Dosing Protocol Followed?: No Bridging Agent in Conjunction With Warfarin? : Yes Ordered Agents: Enoxaparin Bridging Agent Dose: 70mg BID INR Monitoring Frequency: Monitor INR daily Patient Education : Complete and documented Warfarin dosing and adjustment per CT surgery provider. Transitions of Care Outpatient provider managing warfarin after [facility] discharge: TBD - possibly clinic Recommended date for outpatient INR assessment: TBD - of note, enoxparin copay $0 for 7 day supply Will continue to follow patient's clinical progress daily. Maria Esther Kent PharmD, ARLEEN, BCCCP, FCCM Critical Care Pharmacist - Cardiothoracic Surgery Contact via secure chat * Gabriel Singh - Maria Esther Kent PharmD - 06/17/2025 9:21 AM EDT Images from the original note were not included. Your Health Checklist: Taking Warfarin Safely - Video Follow this checklist to properly and safely take warfarin. To view the video go to this web address: https://bit.[email or web address] Or, scan this QR code with your smart phone ?? [facility] * Maria Esther Houston PharmD - 06/17/2025 9:21 AM EDT Images from the original note were not included. Your Health Checklist: Preventing Injuries While Taking Warfarin - Video Follow this checklist to help prevent common injuries while on warfarin, and what to do in case of emergency. To view the video go to this web address: https://bit.ly/[email or web address] Or, scan this QR code with your smart phone ?? [facility] * Maria Esther Houston PharmD - 06/17/2025 9:21 AM EDT Images from the original note were not included. Warfarin: Your INR Goal - Video Understand what the INR test measures, and what your healthy INR level should be. To view the video go to this web address: https://bit.ly/[email or web address] Or, scan this QR code with your smart phone ?? [facility] * Maria Esther Houston PharmD - 06/17/2025 9:21 AM EDT Images from the original note were not included. Warfarin: Possible Side Effects - Video See what common and uncommon side effects you may experience when taking warfarin, and when to calleither your doctor or 911 for help. To view the video go to this web address: https://bit.ly/0CH1Hcq Or, scan this QR code with your smart phone ?? [facility] * Maria Esther Houston PharmD - 06/17/2025 9:21 AM EDT Images from the original note were not included. 640 For Warfarin: Eating a Consistent Vitamin K Diet Warfarin is a medicine that helps keep your body from forming dangerous blood clots. This could prevent a heart attack or stroke. That?s a very important benefit. But like all medicines, warfarin should be used correctly. Among other things, that means watching your intake of vitamin K while takingthis medicine. Vitamin K plays a haile role in blood clotting. Warfarin reduces the clotting activityof vitamin K. That makes it harder for your body to form new, harmful blood clots. It also helps keep existing clots from growing larger. A sudden change in your vitamin K intake may throw off the balance between the vitamin and your medicine, however. That can affect the medicine?s anti-clotting action. Getting more vitamin K than usual could make it easier for your body to form clots. Getting less vitamin K could lead to dangerous bleeding. To prevent these highs and lows, you need to consume about the same amount of the vitamin e very day. This diet aims to prevent such issues by helping you get a steady amount of vitamin K. Does this diet have any risks? Be careful about any changes that could affect how warfarin works. Talk with your provider before starting a weight loss plan or other big diet change. Also check with your provider or pharmacist before taking any new dietary supplements. That includes multivitamins and herbal products containing garlic, ginkgo biloba, or green tea. What foods should you eat? Vitamin K is found in a wide array of foods, including many that are good for you. The goal is not to cut vitamin K out of your diet. Instead, aim to get a steady amount of it. To do that, try to follow the same general eating pattern every day. The healthiest option is a balanced diet that includes: ? Vegetables of varied types and colors ? Fruits, especially whole fruits ? Grains, with a focus on whole grains ? Lean protein foods, such as fish, shellfish, poultry, lean meats, eggs, beans, nuts, and tofu ? Fat-free or low-fat milk and dairy products ? Healthy oils, such as many vegetable oils and the oils in foods such as fish and nuts Dark green leafy vegetables are major sources of vitamin K. These veggies are packed with nutrients, and you don?t have to skip them. Just be sure that you also choose some vegetables that are lower in vitamin K. Examples are corn, mushrooms, onion, potato, summer squash, and sweet potato. This helps meet your nutrient needs while controlling your vitamin K intake. Which foods should you limit? Certain foods contain a lot of vitamin K. When you take warfarin, these foods may affect your medicine results. That?s especially true if you eat them only occasionally or in large amounts. Followingare some vitamin K-rich foods: ? Dark green leafy vegetables, such as broccoli, collards, kale, mustard greens, and spinach ? Certain other vegetables and fruits, including asparagus, [place] sprouts, and kiwifruit ? Certain soy products, such as natto (a traditional Mongolian dish of fermented soybeans) Some vegetable oils also contain significant amounts of vitamin K. Examples are soybean and canola oils. Consider using other heart-healthy oils, such as corn and peanut oils. Aim for the same total amount of foods high in vitamin K from day to day. For example, if you normally have 2 daily servings of these foods, don?t suddenly switch to 4 servings or none. Tips for following this diet Alcohol can affect how your body breaks down warfarin. That may increase the risk of serious bleeding. Don't drink alcohol every day while taking this medicine. Ask your provider whether an occasional alcoholic drink is OK. Tell your provider if you have vomiting or diarrhea lasting more than a day, or if you can?t eat normally for several days for any reason. These issues may affect your warfarin dose. Suggestions for planning meals To prevent overloading on foods high in vitamin K, have small portions and combine them with foods lower in the vitamin. Below are some meal ideas. But keep in mind that the daily amount of vitamin Kyou should get depends on your usual eating style. ? Oatmeal sprinkled with chopped nuts, served with a bowl of sliced kiwifruit* and strawberries ? A veggie omelet filled with kale*, diced sweet red pepper, and reduced-fat cheese, served with a whole grain Maltese muffin ? A grilled chicken sandwich on whole grain bread with raw spinach*, tomato slices, and mustard ? Oven-roasted fish served with steamed broccoli* and medley of whole grain pasta, carrots, onions,and mushrooms * Foods higher in vitamin K Last Reviewed Date: 2025 00:00:00 ?? 3409-0714 [employer]. All rights reserved. This information is not intended as a substitute for professional medical care. Always follow your healthcare professional's instructions. * Maria Esther Houston PharmD - 06/17/2025 9:21 AM EDT Images from the original note were not included. Warfarin - Video Learn how Warfarin works to prevent blood clots from forming, getting bigger, or traveling through the body. Also, learn the possible side effects to be aware of, and how to properly use and store this medication. To view the video go to this web address: [email or web address] Or, scan this QR code with your smart phone ?? [facility] * Maria Esther Houston PharmD - 06/17/2025 9:21 AM EDT Images from the original note were not included. What is Warfarin? - Video Learn how warfarin helps balance your body's clotting and bleeding abilities, and how the INR test helps your doctor learn if your prescription is right for you. To view the video go to this web address: https://bit.[email or web address] Or, scan this QR code with your smart phone ?? [facility] * Maria Esther Houston PharmD - 06/17/2025 9:21 AM EDT Images from the original note were not included. Warfarin and Food - Video Learn which foods can affect how your warfarin therapy is working. To view the video go to this web address: [email or web address] Or, scan this QR code with your smart phone ?? [facility] * Gabriel OnTRISTAN - Maria Esther Kent PharmD - 06/17/2025 9:21 AM EDT Images from the original note were not included. [id number] Warfarin IMPORTANT WARNING: Warfarin may cause severe bleeding that can be life-threatening and even cause . Tell your doctor if you have or have ever had a blood or bleeding disorder; bleeding problems, especially in yourstomach or your esophagus (tube from the throat to the stomach), intestines, urinary tract or bladder, or lungs; high blood pressure; heart attack; angina (chest pain or pressure); heart disease; pericarditis (swelling of the lining (sac) around the heart); endocarditis (infection of one or more heart valves); a stroke or ministroke; aneurysm (weakening or tearing of an artery or vein); anemia (low number of red blood cells in the blood); cancer; chronic diarrhea; or kidney, or liver disease. Also tell your doctor if you fall often or have had a recent serious injury or surgery. Bleeding is more likely during warfarin treatment for people over 65 years of age, and it is also more likely during the first month of warfarin treatment. Bleeding is also more likely to occur for people who take high doses of warfarin, or take this medication for a long time. The risk for bleeding while takingwarfarin is also higher for people participating in an activity or sport that may result in seriousinjury. Tell your doctor and pharmacist if you are taking or plan to take any prescription or nonprescription medications, vitamins, nutritional supplements, and herbal or botanical products (See SPECIAL PRECAUTIONS), as some of these products may increase the risk for bleeding while you are takingwarfarin. If you experience any of the following symptoms, call your doctor immediately: pain, swelling, or discomfort, bleeding from a cut that does not stop in the usual amount of time, nosebleeds or bleeding from your gums, coughing up or vomiting blood or material that looks like coffee grounds, unusual bleeding or bruising, increased menstrual flow or vaginal bleeding, pink, red, or dark brown urine, red or tarry black bowel movements, headache, dizziness, or weakness. Some people may respond differently to warfarin based on their heredity or genetic make-up. Your doctor may order a blood test to help find the dose of warfarin that is best for you. Warfarin prevents blood from clotting so it may take longer than usual for you to stop bleeding if you are cut or injured. Avoid activities or sports that have a high risk of causing injury. Call your doctor if bleeding is unusual or if you fall and get hurt, especially if you hit your head. Keep all appointments with your doctor and the laboratory. Your doctor will order a blood test (PT [prothrombin test] reported as INR [international normalized ratio] value) regularly to check your body's response to warfarin. If your doctor tells you to stop taking warfarin, the effects of this medication may last for 2 to 5 days after you stop taking it. Your doctor or pharmacist will give you the [employer]'s patient information sheet (Medication Guide) when you begin treatment with warfarin and each time you refill your prescription. Read the information carefully and ask your doctor or pharmacist if you have any questions. You can also visit the Food and Drug Administration (FDA) website (https://www.fda.gov/downloads/Drugs/DrugSafety/deb672611.pdf) or the [employer] website to obtain the Medication Guide. Talk to your doctor about the risk(s) of taking warfarin. WHY is this medicine prescribed? Warfarin is used to prevent blood clots from forming or growing larger in your blood and blood vessels. It is prescribed for people with certain types of irregular heartbeat, people with prosthetic (replacement or mechanical) heart valves, and people who have suffered a heart attack. Warfarin is also used to treat or prevent venous thrombosis (swelling and blood clot in a vein) and pulmonary embolism (a blood clot in the lung). Warfarin is in a class of medications called anticoagulants ('bloodthinners'). It works by decreasing the clotting ability of the blood. HOW should this medicine be used? Warfarin comes as a tablet to take by mouth. It is usually taken once a day with or without food. Take warfarin at around the same time every day. Follow the directions on your prescription label carefully, and ask your doctor or pharmacist to explain any part you do not understand. Take warfarin exactly as directed. Do not take more or less of it or take it more often than prescribed by your doctor. Call your doctor immediately if you take more than your prescribed dose of warfarin. Your doctor will probably start you on a low dose of warfarin and gradually increase or decrease your dose based on the results of your blood tests. Make sure you understand any new dosing instructions from your doctor. Continue to take warfarin even if you feel well. Do not stop taking warfarin without talking to your doctor. Are there OTHER USES for this medicine? This medication may be prescribed for other uses; ask your doctor or pharmacist for more information. What SPECIAL PRECAUTIONS should I follow? Before taking warfarin, ? tell your doctor and pharmacist if you are allergic to warfarin, any other medications, or any ofthe ingredients in warfarin tablets. Ask your pharmacist or check the Medication Guide for a list of the ingredients. ? do not take two or more medications that contain warfarin at the same time. Be sure to check withyour doctor or pharmacist if you are uncertain if a medication contains warfarin or warfarin sodium. ? tell your doctor and pharmacist what prescription and nonprescription medications, vitamins, and nutritional supplements you are taking or plan to take while taking warfarin. Your doctor may changethe doses of your medications or monitor you carefully for side effects. ? the following nonprescription or herbal products may interact with warfarin: coenzyme Q10 (Ubidecarenone), Echinacea, garlic, Ginkgo biloba, ginseng, goldenseal, and Dee's wort; omeprazole (Prilosec); famotidine (Pepcid AC); aspirin and nonsteroidal anti-inflammatory drugs (NSAIDS) such as ibuprofen (Advil, Motrin, others) and naproxen (Aleve). Be sure to let your doctor and pharmacist know that you are taking these medications before you start taking warfarin. Do not start any of these medications while taking warfarin without discussing with your healthcare provider. ? tell your doctor if you have or have ever had diabetes. Also tell your doctor if you have an infection, a gastrointestinal illness such as diarrhea, or sprue (an allergic reaction to protein found in grains that causes diarrhea), or an indwelling catheter (a flexible plastic tube that is placed into the bladder to allow the urine to drain out). ? Tell your doctor if you are , think you might be , or plan to become while taking warfarin. women should not take warfarin unless they have a mechanical heart valve. Talk to your doctor about the use of effective control while taking warfarin. If you become while taking warfarin, call your doctor immediately. Warfarin may harm the fetus. ? tell your doctor if you are breast-feeding. ? if you are having surgery, including dental surgery, or any type of medical or dental procedure, tell the doctor or dentist that you are taking warfarin. Your doctor may tell you to stop taking warfarin before the surgery or procedure or change your dosage of warfarin before the surgery or procedure. Follow your doctor's directions carefully and keep all appointments with the laboratory if yourdoctor orders blood tests to find the best dose of warfarin for you. ? ask your doctor about the safe use of alcoholic beverages while you are taking warfarin. ? tell your doctor if you use tobacco products. Cigarette smoking may decrease the effectiveness ofthis medication. What SPECIAL DIETARY instructions should I follow? Eat a normal, healthy diet. Some foods and beverages, particularly those that contain vitamin K, can affect how warfarin works for you. Ask your doctor or pharmacist for a list of foods that contain vitamin K. Eat consistent amounts of vitamin K-containing food on a [id number] basis. Do not eat large amounts of leafy, green vegetables or certain vegetable oils that contain large amounts of vitamin K. Be sure to talk to your doctor before you make any changes in your diet. Talk to your doctor about eating grapefruit and drinking grapefruit juice while taking this medication. What should I do IF I FORGET to take a dose? Take the missed dose as soon as you remember it, if it is the same day that you were to take the dose. Do not take a double dose the next day to make up for a missed one. Call your doctor if you hubert dose of warfarin. What SIDE EFFECTS can this medicine cause? If you experience any of the following symptoms, or those listed in the IMPORTANT WARNING section, call your doctor immediately: ? hives ? rash ? itching ? difficulty breathing or swallowing ? swelling of the face, throat, tongue, lips, or eyes ? hoarseness ? chest pain or pressure ? swelling of the hands, feet, ankles, or lower legs ? fever ? infection ? nausea ? vomiting ? diarrhea ? extreme tiredness ? lack of energy ? loss of appetite ? pain in the upper right part of the stomach ? yellowing of the skin or eyes ? flu-like symptoms You should know that warfarin may cause necrosis or gangrene ( of skin or other body tissues).Call your doctor immediately if you notice a purplish or darkened color to your skin, skin changes,ulcers, or an unusual problem in any area of your skin or body, or if you have a severe pain that occurs suddenly, or color or temperature change in any area of your body. Call your doctor immediately if your toes become painful or become purple or dark in color. You may need medical care right away to prevent amputation (removal) of your affected body part. Warfarin may cause other side effects. Call your doctor if you have any unusual problems while taking this medication. What should I know about STORAGE and DISPOSAL of this medication? Keep this medication in the container it came in, tightly closed, and out of reach of children. Store it at room temperature and away from excess heat, moisture (not in the bathroom), and light. Dispose of unneeded medications in a way so that pets, children, and other people cannot take them.Do not flush this medication down the toilet. Use a medicine take-back program. Talk to your pharmacist about take-back programs in your community. Visit the FDA's Safe Disposal of Medicines website h ttps://goo.gl/c4Rm4p for more information. Keep all medication out of sight and reach of children as many containers are not child-resistant. Always lock safety caps. Place the medication in a safe location - one that is up and away and out of their sight and reach. https://www.upandaway.org What should I do in case of OVERDOSE? In case of overdose, call the poison control helpline at . Information is also available online at https://www.poisonhelp.org/help. If the victim has collapsed, had a seizure, has trouble breathing, or can't be awakened, immediately call emergency services at 441. Symptoms of overdose may include the following: ? bloody or red, or tarry bowel movements ? spitting or coughing up blood ? heavy bleeding with your menstrual period ? pink, red, or dark brown urine ? coughing up or vomiting material that looks like coffee grounds ? small, flat, round red spots under the skin ? unusual bruising or bleeding ? continued oozing or bleeding from minor cuts What OTHER INFORMATION should I know? Carry an identification card or wear a bracelet stating that you take warfarin. Ask your pharmacistor doctor how to obtain this card or bracelet. List your name, medical problems, medications and dosages, and doctor's name and telephone number on the card. Tell all your healthcare providers that you take warfarin. Do not let anyone else take your medication. Ask your pharmacist any questions you have about refilling your prescription. Keep a written list of all of the prescription and nonprescription ([id number]) medicines, vitamins, minerals, and dietary supplements you are taking. Bring this list with you each time you visit a doctor or if you are admitted to the hospital. You should carry the list with you in case of marlee rgencies. Brand Name(s): ? Coumadin?? ? Jantoven?? also available generically This report on medications is for your information only, and is not considered individual patient advice. Because of the changing nature of drug information, please consult your physician or pharmacist about specific clinical use. The [employer] represents that the information provided hereunder was formulated with a reasonable standard of care, and in conformity with professional standards in the field. The [employer] makes no representations or warranties, express or implied, including, but not limited to, any implied warranty of merchantability and/or fitness for a particular purpose, with respect to such information and specifically disclaims all such warranties. Users are advised that decisions regarding drug therapy are complex medical decisions requiring the independent, informed decision of an appropriate health care coordinator, and the information is provided for informational purposes only. The entire monograph for a drug should be reviewed for a thorough understanding of the drug's actions, uses and side effects. The [employer] does not endorse or recommend the use of any drug.The information is not a substitute for medical care. AHFS?? Patient Medication Information?. ?? Copyright, 2023. The [employer]??, [address], [address], [place], [place]. All Rights Reserved. Duplication for commercial use must be authorized by [facility]. Selected Revisions: February 13, 2017. AHFS?? Patient Medication Information?. ?? Copyright, 2024 * Progress Notes - Phillip Clark MD - 06/17/2025 6:37 AM EDT Bradley Forrest Patient was seen and examined with resident physicians and CCM. Morning chest x- ray reviewed. Labs in last 18 hours CBC WBC 10.83 (H) Hb 11.3 (L) Plt 116 (L) Hct 35.0 (L) ANC ?? INR 1.5 (H), PTT ??, Anti-Xa ?? BMP Na 133 (L) Cl 98 BUN 15 Glu 88 K 3.9 Co2 25 Cr 0.81 Ca 8.1 (L) iCa ?? Mg 2.3, Phos 2.9 Lactate ?? LFT AST ?? AlkPhos ?? T Prot ?? ALK ?? Bili ?? Alb ?? D.Bili ?? Current Scheduled Medications[1] Current Continuous Medications[2] Visit Vitals BP 125/68 (BP Location: Left arm, Patient Position: Lying) Pulse 90 Temp 37.4 ??C (99.4 ??F) (Oral) Ht 1.702 m (5' 7 ) Wt 85.7 kg (188 lb 15 oz) SpO2 93% BMI 29.59 kg/m?? Intake/Output Summary (Last 24 hours) at 06/17/2025 0637 Last data filed at 06/17/2025 0600 Gross per 24 hour Intake 1100 ml Output 1120 ml Net -20 ml Physical Exam Constitutional: General: He is not in acute distress. HENT: Head: Normocephalic and atraumatic. Mouth/Throat: Mouth: Mucous membranes are moist. Eyes: Extraocular Movements: Extraocular movements intact. Cardiovascular: Rate and Rhythm: Normal rate and regular rhythm. Pulmonary: Effort: Pulmonary effort is normal. No respiratory distress. Abdominal: General: There is no distension. Palpations: Abdomen is soft. Skin: General: Skin is warm. Capillary Refill: Capillary refill takes less than 2 seconds. Neurological: General: No focal deficit present. Mental Status: He is alert and oriented to person, place, and time. Psychiatric: Mood and Affect: Mood normal. Judgment: Judgment normal. Sternal incision: clean Impression & Plan 69 year old male status post mechanical aortic root replacement on 06/14/25. -plavix -continue beta jade -warfarin 5mg today, daily INR -continue therapeutic lovenox for now -PO lasix -clip/remove wires -OOB/mobilize -PT/OT -telemetry today [1] acetaminophen, 650 mg, Oral, q4h DEMETRIUS bisacodyl, 10 mg, Rectal, Daily clopidogrel, 75 mg, Oral, Daily docusate sodium, 100 mg, Oral, BID empagliflozin, 10 mg, Oral, Daily enoxaparin, 0.75 mg/kg, Subcutaneous, q12h ezetimibe, 10 mg, Oral, Daily Apollo, 1 packet, Oral, BID losartan, 25 mg, Oral, BID magnesium hydroxide, 10 mL, Oral, Daily melatonin, 9 mg, Oral, Nightly methocarbamol, 500 mg, Oral, TID metoprolol tartrate, 25 mg, Oral, BID mupirocin, 1 Application, Each Nostril, BID pantoprazole, 40 mg, Oral, Daily phosphorus, 1 tablet, Oral, q8h polyethylene glycol, 17 g, Oral, Daily rosuvastatin, 40 mg, Oral, Nightly senna, 17.2 mg, Oral, Nightly sodium chloride, 10 mL, Intravenous, q12h warfarin, 4 mg, Oral, Daily [2] * Care Plan - Lori Molina RN - 06/17/2025 1:18 AM EDT Problem: Adult Inpatient Plan of Care Goal: Plan of Care Review Outcome: Ongoing, Progressing Flowsheets (Taken 06/17/2025 0109) Progress: improving Outcome Evaluation: Plan of care discussed with patient and family Plan of Care Reviewed With: patient family Goal: Patient-Specific Goal (Individualized) Outcome: Ongoing, Progressing Flowsheets (Taken 06/16/20251999) Patient/Family-Specific Goals (Include Timeframe): Pt will remain free from injury throughout this shift Individualized Care Needs: Safety Anxieties, Fears or Concerns: None stated Goal: Absence of Hospital-Acquired Illness or Injury Outcome: Ongoing, Progressing Intervention: Identify and Manage Fall Risk Flowsheets (Taken 06/16/20251999) Safety Promotion/Fall Prevention: activity supervised assistive device/personal items within reach clutter-free environment maintained fall prevention program maintained lighting adjusted mobility aid in reach nonskid shoes/slippers when out of bed room organization consistent safety round/check completed toileting scheduled Intervention: Prevent Skin Injury Flowsheets Taken 06/17/2025108 Skin Protection: incontinence pads utilized transparent dressing maintained Taken 06/17/2025 Body Position: weight shifting Intervention: Prevent and Manage VTE (Venous Thromboembolism) Risk Flowsheets (Taken 06/17/2025) VTE Prevention/Management: medication Intervention: Prevent Infection Flowsheets (Taken 06/17/2025108) Infection Prevention: environmental surveillance performed equipment surfaces disinfected hand hygiene promoted rest/sleep promoted single patient room provided Goal: Optimal Comfort and Wellbeing Outcome: Ongoing, Progressing Intervention: Monitor Pain and Promote Comfort Flowsheets (Taken 06/17/2025108) Pain Management Interventions: medication (see MAR) Intervention: Provide Person-Centered Care Flowsheets (Taken 06/17/2025108) Trust Relationship/Rapport: care explained choices provided questions answered questions encouraged Problem: Infection Goal: Absence of Infection Signs and Symptoms Outcome: Ongoing, Progressing Intervention: Prevent or Manage Infection Flowsheets Taken 06/17/2025108 Infection Management: aseptic technique maintained Fever Reduction/Comfort Measures: lightweight bedding lightweight clothing Taken 06/16/20251999 Isolation Precautions: precautions maintained protective Problem: Cardiovascular Surgery Goal: Improved Activity Tolerance Outcome: Ongoing, Progressing Intervention: Optimize Tolerance for Activity Flowsheets (Taken 06/17/2025108) Environmental Support: calm environment promoted personal routine supported Self-Care Promotion: independence encouraged Goal: Optimal Coping with Heart Surgery Outcome: Ongoing, Progressing Intervention: Support Psychosocial Response to Surgery Flowsheets (Taken 06/17/2025108) Supportive Measures: active listening utilized self-care encouraged relaxation techniques promoted Family/Support System Care: caregiver stress acknowledged Goal: Absence of Bleeding Outcome: Ongoing, Progressing Intervention: Monitor and Manage Bleeding Flowsheets (Taken 06/17/2025108) Bleeding Management: dressing monitored Goal: Effective Bowel Elimination Outcome: Ongoing, Progressing Intervention: Enhance Bowel Motility and Elimination Flowsheets (Taken 06/17/2025108) Bowel Elimination Management: relaxation techniques promoted toileting offered Bowel Motility Enhancement: ambulation promoted fluid intake encouraged Goal: Effective Cardiac Function Outcome: Ongoing, Progressing Intervention: Optimize Cardiac Output and Blood Flow Flowsheets (Taken 06/17/2025108) Stabilization Measures: legs elevated Dysrhythmia Management: pacing wires maintained Goal: Optimal Cerebral Tissue Perfusion Outcome: Ongoing, Progressing Intervention: Protect and Optimize Cerebral Perfusion Flowsheets (Taken 06/17/2025108) Glycemic Management: blood glucose monitored Fever Reduction/Comfort Measures: lightweight bedding lightweight clothing Sensory Stimulation Regulation: care clustered lighting decreased quiet environment promoted visual stimulation minimized Cerebral Perfusion Promotion: blood pressure monitored Head of Bed (HOB) Positioning: HOB elevated Goal: Fluid and Electrolyte Balance Outcome: Ongoing, Progressing Intervention: Monitor and Manage Fluid and Electrolyte Balance Flowsheets (Taken 06/17/2025108) Fluid/Electrolyte Management: fluids adjusted Goal: Blood Glucose Level Within Target Range Outcome: Ongoing, Progressing Intervention: Optimize Glycemic Control Flowsheets (Taken 06/17/2025108) Glycemic Management: blood glucose monitored Goal: Absence of Infection Signs and Symptoms Outcome: Ongoing, Progressing Intervention: Prevent or Manage Infection Flowsheets (Taken 06/17/2025108) Fever Reduction/Comfort Measures: lightweight bedding lightweight clothing Infection Prevention: environmental surveillance performed equipment surfaces disinfected hand hygiene promoted rest/sleep promoted single patient room provided Goal: Anesthesia/Sedation Recovery Outcome: Ongoing, Progressing Intervention: Optimize Anesthesia Recovery Flowsheets Taken 06/17/2025108 Stabilization Measures: legs elevated Reorientation Measures: calendar in view familiar social contact encouraged Taken 06/17/2025 0000 Administration (IS): instruction provided, follow-up self-administered Taken 06/16/20251999 Patient Tolerance (IS): good Safety Promotion/Fall Prevention: activity supervised assistive device/personal items within reach clutter-free environment maintained fall prevention program maintained lighting adjusted mobility aid in reach nonskid shoes/slippers when out of bed room organization consistent safety round/check completed toileting scheduled Level Incentive Spirometer (mL): 1000 Incentive Spirometer Predicted Level (mL): 100 Number of Repetitions (IS): 5 Goal: Acceptable Pain Control Outcome: Ongoing, Progressing Intervention: Prevent or Manage Pain Flowsheets (Taken 06/17/2025108) Pain Management Interventions: medication (see MAR) Diversional Activities: television Goal: Nausea and Vomiting Relief Outcome: Ongoing, Progressing Intervention: Prevent or Manage Nausea and Vomiting Flowsheets (Taken 06/17/2025108) Nausea/Vomiting Interventions: slow deep breathing encouraged Goal: Effective Urinary Elimination Outcome: Ongoing, Progressing Intervention: Monitor and Manage Urinary Retention Flowsheets (Taken 06/17/2025108) Urinary Elimination Promotion: toileting offered toileting scheduled toileting device within reach Goal: Effective Oxygenation and Ventilation Outcome: Ongoing, Progressing Intervention: Promote Airway Secretion Clearance Flowsheets Taken 06/17/2025108 Airway/Ventilation Management: airway patency maintained Taken 06/17/2025 0000 Administration (IS): instruction provided, follow-up self-administered Cough And Deep Breathing: done independently per patient Taken 06/16/20251999 Patient Tolerance (IS): good Level Incentive Spirometer (mL): 1000 Incentive Spirometer Predicted Level (mL): 100 Number of Repetitions (IS): 5 Intervention: Optimize Oxygenation and Ventilation Flowsheets (Taken 06/17/2025108) Chest Tube Safety: all connections secured Problem: Fall Injury Risk Goal: Absence of Fall and Fall-Related Injury Outcome: Ongoing, Progressing Intervention: Identify and Manage Contributors Flowsheets (Taken 06/17/2025108) Medication Review/Management: medications reviewed Self-Care Promotion: independence encouraged Intervention: Promote Injury-Free Environment Flowsheets (Taken 06/16/20251999) Safety Promotion/Fall Prevention: activity supervised assistive device/personal items within reach clutter-free environment maintained fall prevention program maintained lighting adjusted mobility aid in reach nonskid shoes/slippers when out of bed room organization consistent safety round/check completed toileting scheduled Problem: Pain Acute Goal: Optimal Pain Control and Function Outcome: Ongoing, Progressing Intervention: Optimize Psychosocial Wellbeing Flowsheets (Taken 06/17/2025108) Supportive Measures: active listening utilized self-care encouraged relaxation techniques promoted Diversional Activities: television Spiritual Activities Assistance: affirmation provided Intervention: Develop Pain Management Plan Flowsheets (Taken 06/17/2025108) Pain Management Interventions: medication (see MAR) Intervention: Prevent or Manage Pain Flowsheets (Taken 06/17/2025108) Sensory Stimulation Regulation: care clustered lighting decreased quiet environment promoted visual stimulation minimized Bowel Elimination Promotion: diet adjusted ambulation promoted adequate fluid intake promoted Sleep/Rest Enhancement: awakenings minimized room darkened Medication Review/Management: medications reviewed Problem: Mobility Impairment Goal: Optimal Mobility Outcome: Ongoing, Progressing Intervention: Optimize Mobility Flowsheets Taken 06/17/2025108 Assistive Device Utilized: four wheel walker Positioning/Transfer Devices: pillows Taken 06/17/2025 Activity Management: dorsiflexion/plantar flexion performed Problem: Self-Care Deficit Goal: Improved Ability to Complete Activities of Daily Living Outcome: Ongoing, Progressing Intervention: Promote Activity and Functional [place] Flowsheets (Taken 06/17/2025108) Activity Assistance Provided: assistance, 1 person Self-Care Promotion: independence encouraged Problem: Self-Care Deficit Goal: Improved Ability to Complete Activities of Daily Living Outcome: Ongoing, Progressing Intervention: Promote Activity and Functional [place] Flowsheets (Taken 06/17/2025108) Activity Assistance Provided: assistance, 1 person Self-Care Promotion: independence encouraged Problem: Wound Goal: Optimal Coping Outcome: Ongoing, Progressing Intervention: Support Patient and Family Response Flowsheets (Taken 06/17/2025108) Supportive Measures: active listening utilized self-care encouraged relaxation techniques promoted Family/Support System Care: caregiver stress acknowledged Goal: Optimal Functional Ability Outcome: Ongoing, Progressing Intervention: Optimize Functional Ability Flowsheets Taken 06/17/2025108 Activity Assistance Provided: assistance, 1 person Assistive Device Utilized: four wheel walker Taken 06/17/2025 Activity Management: dorsiflexion/plantar flexion performed Goal: Absence of Infection Signs and Symptoms Outcome: Ongoing, Progressing Intervention: Prevent or Manage Infection Flowsheets (Taken 06/17/2025108) Infection Management: aseptic technique maintained Fever Reduction/Comfort Measures: lightweight bedding lightweight clothing Goal: Improved Oral Intake Outcome: Ongoing, Progressing Intervention: Promote and Optimize Oral Intake Flowsheets (Taken 06/17/2025108) Oral Nutrition Promotion: rest periods promoted Nutrition Interventions: diet adjusted Goal: Optimal Pain Control and Function Outcome: Ongoing, Progressing Intervention: Prevent or Manage Pain Flowsheets (Taken 06/17/2025108) Pain Management Interventions: medication (see MAR) Sleep/Rest Enhancement: awakenings minimized room darkened Goal: Skin Health and Integrity Outcome: Ongoing, Progressing Intervention: Optimize Skin Protection Flowsheets Taken 06/17/2025108 Pressure Reduction Techniques: frequent weight shift encouraged heels elevated off bed Pressure Reduction Devices: chair cushion utilized heel offloading device utilized Skin Protection: tubing/devices free from skin contact Head of Bed (HOB) Positioning: HOB elevated Taken 06/17/2025 Activity Management: dorsiflexion/plantar flexion performed Goal: Optimal Wound Healing Outcome: Ongoing, Progressing Intervention: Promote Wound Healing Flowsheets (Taken 06/17/2025 0109) Sleep/Rest Enhancement: awakenings minimized room darkened * Care Plan - Fariba Blanton RN - 06/16/2025 3:27 PM EDT Problem: Adult Inpatient Plan of Care Goal: Plan of Care Review 06/16/20251525 by Fariba Blanton RN Outcome: Ongoing, Progressing Flowsheets (Taken 06/16/20251525) Progress: improving Outcome Evaluation: plan of care reviewed with patient and family Plan of Care Reviewed With: patient family 06/16/20251525 by Fariba Blanton RN Outcome: Ongoing, Not Progressing Goal: Patient-Specific Goal (Individualized) 06/16/20251525 by Fariba Blanton RN Outcome: Ongoing, Progressing Flowsheets (Taken 06/16/20251525) Patient/Family-Specific Goals (Include Timeframe): patient will maintain tolerable pain level (<3) at rest throughout shift Individualized Care Needs: pain management Anxieties, Fears or Concerns: pain 06/16/20251525 by Fariba Blanton RN Outcome: Ongoing, Not Progressing Goal: Absence of Hospital-Acquired Illness or Injury 06/16/20251525 by Fariba Blanton RN Outcome: Ongoing, Progressing 06/16/20251525 by Fariba Blanton RN Outcome: Ongoing, Not Progressing Goal: Optimal Comfort and Wellbeing 06/16/20251525 by Fariba Blanton RN Outcome: Ongoing, Progressing 06/16/20251525 by Fariba Blanton RN Outcome: Ongoing, Not Progressing Problem: Infection Goal: Absence of Infection Signs and Symptoms 06/16/20251525 by Fariba Blanton RN Outcome: Ongoing, Progressing 06/16/20251525 by Fariba Blanton RN Outcome: Ongoing, Not Progressing Problem: Cardiovascular Surgery Goal: Improved Activity Tolerance 06/16/2025 1526 by Fariba Blanton RN Outcome: Ongoing, Progressing 06/16/2025 1526 by Fariba Blanton RN Outcome: Ongoing, Not Progressing Goal: Optimal Coping with Heart Surgery 06/16/2025 1526 by Fariba Blanton RN Outcome: Ongoing, Progressing 06/16/2025 1526 by Fariba Blanton RN Outcome: Ongoing, Not Progressing Goal: Absence of Bleeding 06/16/2025 152 by Fariba Blanton RN Outcome: Ongoing, Progressing 06/16/2025 1526 by Fariba Blanton RN Outcome: Ongoing, Not Progressing Goal: Effective Bowel Elimination 06/16/2025 152 by Fariba Blanton RN Outcome: Ongoing, Progressing 06/16/2025 1526 by Fariba Blanton RN Outcome: Ongoing, Not Progressing Goal: Effective Cardiac Function 06/16/2025 1526 by Fariba Blanton RN Outcome: Ongoing, Progressing 06/16/2025 1526 by Fariba Blanton RN Outcome: Ongoing, Not Progressing Goal: Optimal Cerebral Tissue Perfusion 06/16/2025 152 by Fariba Blanton RN Outcome: Ongoing, Progressing 06/16/2025 1526 by Fariba Blanton RN Outcome: Ongoing, Not Progressing Goal: Fluid and Electrolyte Balance 06/16/2025 152 by Fariba Blanton RN Outcome: Ongoing, Progressing 06/16/2025 1526 by Fariba Blanton RN Outcome: Ongoing, Not Progressing Goal: Blood Glucose Level Within Target Range 06/16/2025 1526 by Fariba Blanton, HESHAM Outcome: Ongoing, Progressing 06/16/2025 1526 by Fariba Blanton RN Outcome: Ongoing, Not Progressing Goal: Absence of Infection Signs and Symptoms 06/16/2025 1526 by Fariba Blanton, HESHAM Outcome: Ongoing, Progressing 06/16/2025 1526 by Fariba Blanton RN Outcome: Ongoing, Not Progressing Goal: Anesthesia/Sedation Recovery 06/16/2025 1526 by Fariba Blanton RN Outcome: Ongoing, Progressing 06/16/2025 1526 by Fariba Blanton RN Outcome: Ongoing, Not Progressing Goal: Acceptable Pain Control 06/16/2025 1526 by Fariba Blanton RN Outcome: Ongoing, Progressing 06/16/2025 1526 by Fariba Blanton, HESHAM Outcome: Ongoing, Not Progressing Goal: Nausea and Vomiting Relief 06/16/2025 1526 by Fariba Blanton RN Outcome: Ongoing, Progressing 06/16/2025 1526 by Fariba Blanton RN Outcome: Ongoing, Not Progressing Goal: Effective Urinary Elimination 06/16/2025 152 by Fariba Blanton RN Outcome: Ongoing, Progressing 06/16/2025 152 by Fariba Blanton RN Outcome: Ongoing, Not Progressing Goal: Effective Oxygenation and Ventilation 06/16/2025 152 by Fariba Blanton RN Outcome: Ongoing, Progressing 06/16/2025 1526 by Fariba Blanton RN Outcome: Ongoing, Not Progressing Problem: Fall Injury Risk Goal: Absence of Fall and Fall-Related Injury 06/16/2025 152 by Fariba Blanton RN Outcome: Ongoing, Progressing 06/16/2025 152 by Fariba Blanton RN Outcome: Ongoing, Not Progressing Problem: Pain Acute Goal: Optimal Pain Control and Function 06/16/2025 152 by Fariba Blanton RN Outcome: Ongoing, Progressing 06/16/2025 1526 by Fariba Blanton RN Outcome: Ongoing, Not Progressing Problem: Mobility Impairment Goal: Optimal Mobility 06/16/2025 1526 by Fariba Blanton RN Outcome: Ongoing, Progressing 06/16/2025 152 by Fariba Blanton RN Outcome: Ongoing, Not Progressing Problem: Self-Care Deficit Goal: Improved Ability to Complete Activities of Daily Living 06/16/2025 1526 by Fariba Blanton RN Outcome: Ongoing, Progressing 06/16/2025 1526 by Fariba Blanton RN Outcome: Ongoing, Not Progressing Problem: Wound Goal: Optimal Coping 06/16/2025 1526 by Fariba Blanton RN Outcome: Ongoing, Progressing 06/16/2025 1526 by Fariba Blanton RN Outcome: Ongoing, Not Progressing Goal: Optimal Functional Ability 06/16/2025 1526 by Fariba Blanton RN Outcome: Ongoing, Progressing 06/16/2025 1526 by Fariba Blanton RN Outcome: Ongoing, Not Progressing Goal: Absence of Infection Signs and Symptoms 06/16/2025 1526 by Fariba Blanton RN Outcome: Ongoing, Progressing 06/16/2025 1526 by Fariba Blanton RN Outcome: Ongoing, Not Progressing Goal: Improved Oral Intake 06/16/2025 152 by Fariba Blanton RN Outcome: Ongoing, Progressing 06/16/2025 1526 by Fariba Blanton RN Outcome: Ongoing, Not Progressing Goal: Optimal Pain Control and Function 06/16/2025 1526 by Fariba Blanton RN Outcome: Ongoing, Progressing 06/16/2025 1526 by Fariba Blanton RN Outcome: Ongoing, Not Progressing Goal: Skin Health and Integrity 06/16/2025 152 by Fariba Blanton RN Outcome: Ongoing, Progressing 06/16/2025 1526 by Fariba Blanton RN Outcome: Ongoing, Not Progressing Goal: Optimal Wound Healing 06/16/2025 1526 by Fariba Blanton RN Outcome: Ongoing, Progressing 06/16/2025 1526 by Fariba Blanton RN Outcome: Ongoing, Not Progressing Problem: Self-Care Deficit Goal: Improved Ability to Complete Activities of Daily Living 06/16/2025 152 by Fariba Blanton RN Outcome: Ongoing, Progressing 06/16/2025 1526 by Fariba Blanton RN Outcome: Ongoing, Not Progressing * Progress Notes - Sangeeta Townsend RN - 06/16/2025 1:15 PM EDT Case Management Adult Progress Note Bradley Forrest 69 y.o. male CSN: [id number] Admission: 06/14/2025 5:18 AM Primary Problem: Severe aortic regurgitation Anticipated Discharge Date: Additional Comments: HESHAM HAIDER reviewed chart and met with primary team to discuss plan of care. Patient is not medically ready for discharge at this time, remove chest tube and continue ICU level of care. HESHAM HADIER will continue to follow. Sangeeta Townsend RN * Assessment & Plan Note - Belle Smith MD - 06/16/2025 10:15 AM EDT Associated Problem(s): Constipation (Resolved 06/20/2025) - 06/16: KUB consistent with ileus, scheduled Miralax and milk of magnesia, follow up in afternoon to escalate to a suppository if no bowel movement - Monitor per protocol. --The patient needs to remain in the ICU because of: Ileus . --Evaluate for transfer to the floor: following completion of ileus * Assessment & Plan Note - Belle Smith MD - 06/16/2025 10:15 AM EDT Associated Problem(s): Cardiac volume overload (Resolved 06/20/2025) -Monitor per protocol. -diuresis as appropriate * Assessment & Plan Note - Belle Smith MD - 06/16/2025 10:15 AM EDT Associated Problem(s): History of coronary angioplasty with insertion of stent -Monitor per protocol. - 06/16: start plavix * Assessment & Plan Note - Belle Smith MD - 06/16/2025 10:15 AM EDT Associated Problem(s): Severe aortic regurgitation (Deleted) - s/p Aortic Valve Replacement 06/14 - asa/statin/BB when able - dvt prophylaxis and warfarin - wean pressors/inotropes as able - monitor CT output - Monitor per protocol. * Assessment & Plan Note - Belle Smith MD - 06/16/2025 10:15 AM EDT Associated Problem(s): BMI 30.0-30.9,adult (Resolved 06/20/2025) - complicates all aspects of care -Monitor per protocol. * Assessment & Plan Note - Belle Smith MD - 06/16/2025 10:15 AM EDT Associated Problem(s): High cholesterol - 06/15: statin - 06/16: start home ezetimibe -Monitor per protocol. * Assessment & Plan Note - Belle Smith MD - 06/16/2025 10:15 AM EDT Associated Problem(s): Diabetes (Deleted) - 06/16: start home jardiance -Monitor per protocol. * Assessment & Plan Note - Belle Smith MD - 06/16/2025 10:15 AM EDT Associated Problem(s): Hypertension -Monitor per protocol. - 40 lasix po today - 06/16: restart home losartan * Assessment & Plan Note - Belle Smith MD - 06/16/2025 10:15 AM EDT Associated Problem(s): CAD (coronary artery disease) -Monitor per protocol. * Assessment & Plan Note - Belle Smith MD - 06/16/2025 10:15 AM EDT Associated Problem(s): Ascending aortic aneurysm (CMS/HCC) (Resolved 06/20/2025) -Monitor per protocol. * Assessment & Plan Note - Barbara Sosa PA - 06/16/2025 10:15 AM EDT Associated Problem(s): Aortic valve regurgitation (Resolved 06/20/2025) >>ASSESSMENT AND PLAN FOR AORTIC VALVE REGURGITATION WRITTEN ON 06/16/2025 1:20 PM BY BELLE SMITH MD - s/p AVR 06/14 - Monitor per protocol. >>ASSESSMENT AND PLAN FOR SEVERE AORTIC REGURGITATION WRITTEN ON 06/16/2025 1:20 PM BY BELLE SMITH MD - s/p Aortic Valve Replacement 06/14 - asa/statin/BB when able - dvt prophylaxis and warfarin - wean pressors/inotropes as able - monitor CT output - Monitor per protocol. * Assessment & Plan Note - Belle Smith MD - 06/16/2025 10:15 AM EDT Associated Problem(s): Benign prostatic hyperplasia -Monitor per protocol. * Assessment & Plan Note - Belle Smith MD - 06/16/2025 10:15 AM EDT Associated Problem(s): Weaning from mechanically assisted ventilation initiated ([facility]) (Axbpapvm47/20/2025) Arrived intubated and sedated post-op - fast track extubation as able - extubated 06/14, on 2L nasal canula * Assessment & Plan Note - Belle Smith MD - 06/16/2025 10:15 AM EDT Associated Problem(s): Other secondary hypertension -Monitor per protocol. -SBP<120 in initial post-op period * Progress Notes - Belle Smith MD - 06/16/2025 9:58 AM EDTAssociated Order(s): Critical Care Post-Procedure Diagnose(s): Other secondary hypertension Critical Care Performed by: Belle Smith MD Authorized by: Belle Smith MD Critical care provider statement: Critical care time (minutes): 38 Critical care time was exclusive of: Separately billable procedures and treating other patients andteaching time Critical care was time spent personally by me on the following activities: Development of treatmentplan with patient or surrogate, ordering and performing treatments and interventions, discussions with consultants, ordering and review of laboratory studies, discussions with primary provider, ordering and review of radiographic studies, evaluation of patient's response to treatment and examination of patient Critical care statement: I saw and evaluated the patient with the resident/ fellow. I discussed thecase with the resident/ fellow and agree with the findings and plan as documented. 06/16/25 Bradley Forrest is a 69 y.o. male who presents with Severe aortic regurgitation. If applicable, patient is s/p Procedure(s) and Anesthesia Type: * Aortic valve replacement - General. Patient is 2 Days Post-Op with Cardiothoracic Surgery. Past 24 hours: PM: Metop increased to 25mg, Replaced Mag. NN 1.7 after additional 40mg Lasix IV. KUB for abd pain + not passing flatus c/f ileus. Replaced K. AM: Keep CLD, add MoM, add suppository in pm if no BM. Lasix 40mg PO. Dc SSI. Dc givens, chest tubesremoved by CVT, will order plavi now. tLov ordered for tonight. Edited by: Tello Spann MD at 06/16/2025 0924 Lines/Drains/Tubes: Patient Lines/Drains/Airways Status Active Active LDAs Name Placement date Placement time Site Days CVC Double Lumen 06/14/25 Right Internal jugular 06/14/25 0832 Internal jugular 2 Peripheral IV 06/14/25 Posterior;Right Hand 06/14/25 0620 Hand 2 Chest Tube Mediastinal 36 Fr 06/14/25 1327 Mediastinal 1 Urethral Catheter Temperature probe 16 Fr. 06/14/25 0822 -- 2 Arterial Line 06/14/25 Brachial 06/14/25 0808 Brachial 2 GCS: [place] Coma Scale Score: 15 Review of Systems 14 point ROS reviewed and otherwise negative or unobtainable except as noted above or in HPI. Vital signs: Vitals: 06/16/25 0700 BP: Pulse: 77 Resp: 16 Temp: SpO2: 94% Intake/Output Summary (Last 24 hours) at 06/16/2025 0958 Last data filed at 06/16/2025 0600 Gross per 24 hour Intake 592.75 ml Output 2372 ml Net -1779.25 ml Physical Exam Constitutional: General: He is not in acute distress. Appearance: He is not toxic-appearing. HENT: Head: Normocephalic and atraumatic. Mouth/Throat: Mouth: Mucous membranes are moist. Eyes: General: Right eye: No discharge. Left eye: No discharge. Extraocular Movements: Extraocular movements intact. Pupils: Pupils are equal, round, and reactive to light. Cardiovascular: Rate and Rhythm: Normal rate and regular rhythm. Pulses: Normal pulses. Heart sounds: Normal heart sounds. Pulmonary: Effort: Pulmonary effort is normal. No respiratory distress. Breath sounds: Normal breath sounds. No wheezing. Chest: Comments: Midline incision without drainage or dehiscence Abdominal: General: There is no distension. Tenderness: There is no abdominal tenderness. Skin: General: Skin is warm and dry. Coloration: Skin is not jaundiced. Neurological: Mental Status: He is alert and oriented to person, place, and time. Psychiatric: Mood and Affect: Mood normal. Behavior: Behavior normal. Thought Content: Thought content normal. Labs in last 18 hours: CBC WBC 13.67 (H) Hb 12.3 (L) Plt 106 (L) Hct 37.1 (L) ANC ?? INR 1.5 (H), PTT ??, Anti-Xa ?? BMP Na 132 (L) Cl 100 BUN 16 Glu 124 (H) K 3.8 Co2 25 Cr 0.83 Ca 8.4 (L) iCa 4.3 (L) Mg 2.5 (H), Phos 3.0 Lactate 1.0 LFT AST ?? AlkPhos ?? T Prot ?? ALK ?? Bili ?? Alb ?? D.Bili ?? Imaging as available: === 06/14/25 === XR CHEST 1 VIEW - Narrative - CLINICAL INDICATION: Post-Op Cardiac Surgery TECHNIQUE: XR CHEST 1 VIEW COMPARISON: Chest radiograph 06/15/2025 FINDINGS: Enlarged cardiac silhouette stable status post median sternotomy. Interval removal of the Salem-Ganzcatheter, right IJ sheath remains in place with tip in the mid to distal SVC. No pneumothorax or pleural effusions. Ongoing interstitial edema. - Impression - Interval removal of the [place]-Shira catheter, the right IJ sheath remains in place with tip in the mid to distal SVC. Otherwise, no significant changes CRITICAL RESULT: No. COMMUNICATION: Per this written report. Drafted by Mona Smith MD on 06/16/2025 8:13 AM Final report signed by Mona Smith MD on 06/16/2025 8:15 AM Reviewed and agree with above. Assessment and Plan: This patient is critically ill. Assessment & Plan Severe aortic regurgitation Present on Admission: Unknown - s/p Aortic Valve Replacement 06/14 - asa/statin/BB when able - dvt prophylaxis and warfarin - wean pressors/inotropes as able - monitor CT output - Monitor per protocol. BMI 30.0-30.9,adult Present on Admission: Not Applicable - complicates all aspects of care -Monitor per protocol. High cholesterol Present on Admission: Yes - 06/15: statin - 06/16: start home ezetimibe -Monitor per protocol. Diabetes Present on Admission: Yes - 06/16: start home jardiance -Monitor per protocol. Hypertension Present on Admission: Yes -Monitor per protocol. - 40 lasix po today - 06/16: restart home losartan CAD (coronary artery disease) Present on Admission: Yes -Monitor per protocol. History of coronary angioplasty with insertion of stent Present on Admission: Not Applicable -Monitor per protocol. - 06/16: start plavix Ascending aortic aneurysm (CMS/HCC) Present on Admission: Yes -Monitor per protocol. Aortic valve regurgitation Present on Admission: Yes - s/p AVR 06/14 - Monitor per protocol. Benign prostatic hyperplasia Present on Admission: Yes -Monitor per protocol. Weaning from mechanically assisted ventilation initiated (CMS/HCC) Present on Admission: Not Applicable Arrived intubated and sedated post-op - fast track extubation as able - extubated 06/14, on 2L nasal canula Other secondary hypertension Present on Admission: No -Monitor per protocol. -SBP<120 in initial post-op period Cardiac volume overload Present on Admission: Unknown -Monitor per protocol. -diuresis as appropriate Constipation Present on Admission: Unknown - 06/16: KUB consistent with ileus, scheduled Miralax and milk of magnesia, follow up in afternoon to escalate to a suppository if no bowel movement - Monitor per protocol. --The patient needs to remain in the ICU because of: Ileus . --Evaluate for transfer to the floor: following completion of ileus Vicente Rutledge DO * Progress Notes - Elsy Jones - 06/16/2025 9:24 AM EDT PHYSICAL THERAPY TREATMENT PATIENT DATA Patient Name Bradley Forrest Session Date 06/16/2025 Total Treatment Time 24 min PT Discharge Recommendations Home with assistance PT Equipment Recommendations Rollator PRECAUTIONS Weight Bearing Precautions (if applicable) ROM Restrictions (if applicable) Medical Precautions Yes Medical Precautions: Sternal, Fall precautions HOME LIVING/SET-UP Lives With Spouse Home Type House Home Equipment Cane Home Layout One level, Stairs to enter with rails 1 Bathroom Layout Walk-in shower, Grab bars Additional Comments Pt reports he will have assist for IADLs, recently had a horse riding accident, breaking several ribs. She is independent but unable to provide substantial physical assistance. 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 (Active) Peripheral IV 10/14/25 Posterior;Right Hand (Active) Pre-Session Sitting in chair, Lines intact Post-Session Lines intact, RN notified, Call light in reach, Sitting in chair Bracing (if applicable) SUBJECTIVE PARTICIPANTS IN CARE Visitors Present Yes, (sister) Subjective Report Pt HAS been: * Ambulating hallway distances since last PT treatment. Per RN, pt received dilaudid and got his chest tube removed this am before PT treatment. Oven Loader (if applicable) OBJECTIVE & INTERVENTIONS PAIN Pain Intensity / Location Pre-Mobility: 6/10 chest pain Pain Intensity / Location Post-Mobility: Throughout duration of ambulation, chest pain increased to8/10. Pain decreased back to 6/10 before termination of ambulation Prior to PT's departure: * rest was provided * pt was positioned for comfort * pillow support was provided * RN was informed of pt's pain DELIRIUM SCREENING RASS: Alert and calm Feature 3: Altered Level of Consciousness: Negative Vital Signs Pre-Session During- and/or Post-Session Heart Rate (BPM) 80 Max - 86; post - 80 O2 Saturation (%) 94 >93 throughout ambulation Blood Pressure (mmHg) MAP 85 Throughout duration of session, MAP level remained in the 80-90s range THERAPEUTIC ACTIVITY Treatment Minutes 24 TRANSFERS Level of [place] Physical/Non- physical Assist Adaptive Equipment Utilized Sit to Stand Contact guard Verbal Cues, Additional assist utilized for safety, 1 person + 1 person to manage equipment (verbal cuing for sternal precautions) Stand to sit Contact guard Verbal Cues, 1 person + 1 person to manage equipment Interventions BALANCE Postural Appearance Posture: Rounded shoulders Level of [place] Balance Support Interventions Static Sit Standby assist Feet supported Dynamic Sit Contact guard Feet supported Static Stand Standby assist Right upper extremity support, Left upper extremity support Pt with mild dizziness when coming to stand from sitting which subsided with roughly 30 seconds of static standing Dynamic Stand Standby assist Right upper extremity support, Left upper extremity support AMBULATION Level of [place] Distance Adaptive Equipment Utilized Ambulation Standby assist, Moderate verbal cues x440' Rollator Comments Pt with pace of 0.65 ft/sec with short steps. After verbal cuing to lengthen step length, pt with pace of 1.10 ft/sec. Pt able to initiate a longer step length but able to maintain for more than 30 seconds. Pt with 8/10 RPE deferring further ambulation. PT presence was necessary for: * managing lines * progressing patient ambulation distances * monitoring patient vital sign stability * decreasing patient's risk of falling while progressing pt's distances ASSESSMENT Pt is improving, as noted by: less assistance was required for pt to complete sit<>stand transfers, pt demonstrated improved sitting and standing balance, and pt ambulated increased walking distances and with less assistance during this PT treatment compared to last PT treatment. Pt has the following impairments: impaired activity tolerance, impaired posture, impaired balance, and pain, which is limiting the pt from performing independent functional mobility. PT RECOMMENDATIONS Discharge Destination Home with assistance Discharge Equipment Rollator PLAN Pt may continue to benefit from skilled PT for addressing patient's impairments and reducing patient's participation restrictions and activity limitations. PT GOALS PT GOAL DETAILS DATE ASSESSED STATUS PROGRESS PT Goal 1: Pt will perform supine <> sit SBA x1 while maintaining sternal precautions PT Goal 1 Established Date: 06/15/25 PT Goal 1 Time Frame: 2 weeks PT Goal 2: Pt will perform sit to stand and bed to chair transfer with SBA x1 and LRAD PT Goal 2 Established Date: 06/15/25 PT Goal 2 Time Frame: 2 weeks PT Goal 3: Pt will ambulate 600' SBA x1 with LRAD and no rest breaks or losses of balance PT Goal 3 Established Date: 06/15/25 PT Goal 3 Time Frame: 2 weeks PT Goal 4: Pt will be IND with HEP and d/c recs PT Goal 4 Established Date: 06/15/25 PT Goal 4 Time Frame: 2 weeks Written by Elsy Jones on 06/16/25 at 1:03 PM. Cosigned by Cesario Jenkins at 06/16/2025 3:32 PM EDT Associated attestation - Cesario Jenkins - 06/16/2025 3:32 PM EDT As the supervising therapist, I was present during the entire PT treatment and have reviewed and agree with this document written by the student therapist for this patient on this date/time. Dell Jenkins, PT * Progress Notes - Sy Fernández, PharmD - 06/16/2025 8:07 AM EDT Antithrombosis Monitoring: Warfarin Bradley Forrest is a 69 y.o. male who has been started on warfarin. Warfarin Indication & Goal Anticoagulation Indication/Goal Warfarin Indication: Mechanical aortic valve Duration of Anticoagulation: Indefinite Target INR: 2.5-3.5 Warfarin Prior to Admission: No Assessment Warfarin Drug Interactions Inhibitors of Warfarin Metabolism: HMG Co-A Inhibitors (Statins) Increased Bleeding Risk: Low Molecular Weight Heparin;Clopidogrel Interacting medications started/stopped in past 72 hours?: Yes Medication started/stopped in past 72 hours: plavix started 06/16, therapeutic enoxaparin to start 06/16 pm Any warfarin reversal given?: No Anticoagulation Assessment Warfarin Sensitivity Risk Factors: Baseline pre-warfarin INR >1.2 and especially INR > 1.4;Elderly, age > 65;Recent cardiac surgery;Surgery and blood loss Warfarin Sensitivity Score: High (1 or more Warfarin Sensitivity Risk Factors) Nutritional Intake: Normal PO Intake Today's INR : Subtherapeutic Warfarin INR & Dose Trends Date INR Warfarin Dose (mg) Comments 06/15 1.3 4mg pLov started 06/16 1.5 4mg tLov to start 06/16 pm Plan Anticoagulation Plan Warfarin Pharmacist Managed?: No [facility] Warfarin Dosing Protocol Followed?: No Reason for Protocol Departure: CT Surgery Bridging Agent in Conjunction With Warfarin? : Yes Ordered Agents: Enoxaparin Bridging Agent Dose: Enoxaparin 70mg bid to start 10 pm INR Monitoring Frequency: Monitor INR daily Patient Education : Incomplete Warfarin dosing and adjustment per CT surgery provider. Transitions of Care Outpatient provider managing warfarin after [facility] discharge: TBD Recommended date for outpatient INR assessment: TBD Will continue to follow patient's clinical progress daily. Sy Fernández PharmD PGY-2 Cardiology [employer] Available via Secure Chat * Progress Notes - Phillip Clark MD - 06/16/2025 6:36 AM EDT Bradley Forrest Patient was seen and examined with resident physicians and CCM. Morning chest x- ray reviewed. Labs in last 18 hours CBC WBC 13.67 (H) Hb 12.3 (L) Plt 106 (L) Hct 37.1 (L) ANC ?? INR 1.5 (H), PTT ??, Anti-Xa ?? BMP Na 132 (L) Cl 100 BUN 16 Glu 124 (H) K 3.8 Co2 25 Cr 0.83 Ca 8.4 (L) iCa 4.3 (L) Mg 2.5 (H), Phos 3.0 Lactate 1.0 LFT AST ?? AlkPhos ?? T Prot ?? ALK ?? Bili ?? Alb ?? D.Bili ?? Current Scheduled Medications[1] Current Continuous Medications[2] PAP: (-)/(-) 23/9 CO: [5.5 L/min-7.5 L/min] 5.5 L/min CI: [2.8 L/min/m2-3.8 L/min/m2] 2.8 L/min/m2 Visit Vitals BP (!) 150/54 Pulse 79 Temp 37.7 ??C (99.9 ??F) (Bladder) Ht 1.702 m (5' 7 ) Wt 86.9 kg (191 lb 9.3 oz) SpO2 92% BMI 30.01 kg/m?? Intake/Output Summary (Last 24 hours) at 06/16/2025 0636 Last data filed at 06/16/2025 0600 Gross per 24 hour Intake 600.92 ml Output 2542 ml Net -1941.08 ml Physical Exam Constitutional: General: He is not in acute distress. HENT: Head: Normocephalic and atraumatic. Mouth/Throat: Mouth: Mucous membranes are moist. Eyes: Extraocular Movements: Extraocular movements intact. Cardiovascular: Rate and Rhythm: Normal rate and regular rhythm. Pulmonary: Effort: Pulmonary effort is normal. No respiratory distress. Abdominal: General: There is no distension. Palpations: Abdomen is soft. Skin: General: Skin is warm. Capillary Refill: Capillary refill takes less than 2 seconds. Neurological: General: No focal deficit present. Mental Status: He is alert and oriented to person, place, and time. Psychiatric: Mood and Affect: Mood normal. Judgment: Judgment normal. Sternal incision: covaderm in placwe Impression & Plan 69 year old male status post mechanical aortic root replacement on 06/14/25. -start plavix after chest tubes removed -continue beta jade -warfarin 4mg today, daily INR -start therapeutic lovenox tonight -PO lasix -remove chest tubes, continue pacing wires -start suppository -remove Givens and covaderm -OOB/mobilize -PT/OT -continue ICU for complex medical management [1] acetaminophen, 650 mg, Oral, q4h DEMETRIUS docusate sodium, 100 mg, Oral, BID enoxaparin, 40 mg, Subcutaneous, Daily insulin lispro, 0-5 Units, Subcutaneous, TID with meals insulin lispro, 0-3 Units, Subcutaneous, Twice at night Apollo, 1 packet, Oral, BID melatonin, 9 mg, Oral, Nightly methocarbamol, 500 mg, Oral, TID metoprolol tartrate, 25 mg, Oral, BID mupirocin, 1 Application, Each Nostril, BID pantoprazole, 40 mg, Oral, Daily phosphorus, 1 tablet, Oral, q12h rosuvastatin, 40 mg, Oral, Nightly senna, 17.2 mg, Oral, Nightly sodium chloride, 10 mL, Intravenous, q12h warfarin, 4 mg, Oral, Daily [2] * Care Plan - Svetlana Reilly RN - 06/15/2025 9:32 PM EDT Problem: Adult Inpatient Plan of Care Goal: Plan of Care Review Outcome: Ongoing, Progressing Flowsheets (Taken 06/14/20252154) Progress: improving Outcome Evaluation: care plan reviewed with patient and family Plan of Care Reviewed With: patient family Goal: Patient-Specific Goal (Individualized) Outcome: Ongoing, Progressing Flowsheets (Taken 06/15/20252128) Patient/Family-Specific Goals (Include Timeframe): patient will remain at a tolerable pain level asstated by the patient (0-3) throughout the entire shift Individualized Care Needs: pain and comfort Anxieties, Fears or Concerns: pain control Goal: Absence of Hospital-Acquired Illness or Injury Outcome: Ongoing, Progressing Intervention: Identify and Manage Fall Risk Flowsheets (Taken 06/15/20251999) Safety Promotion/Fall Prevention: activity supervised assistive device/personal items within reach clutter-free environment maintained fall prevention program maintained lighting adjusted mobility aid in reach nonskid shoes/slippers when out of bed room organization consistent safety round/check completed toileting scheduled Intervention: Prevent Skin Injury Flowsheets Taken 06/15/20251999 Body Position: right turned Taken 06/14/20252154 Skin Protection: incontinence pads utilized protective footwear used pulse oximeter probe site changed transparent dressing maintained Intervention: Prevent and Manage VTE (Venous Thromboembolism) Risk Flowsheets (Taken 06/15/20251999) VTE Prevention/Management: bilateral SCDs (sequential compression devices) on Intervention: Prevent Infection Flowsheets (Taken 06/14/20252154) Infection Prevention: environmental surveillance performed equipment surfaces disinfected hand hygiene promoted single patient room provided rest/sleep promoted personal protective equipment utilized Goal: Optimal Comfort and Wellbeing Outcome: Ongoing, Progressing Intervention: Monitor Pain and Promote Comfort Flowsheets (Taken 06/15/2025 1948) Pain Management Interventions: medication (see MAR) Intervention: Provide Person-Centered Care Flowsheets (Taken 06/14/20252154) Trust Relationship/Rapport: care explained choices provided emotional support provided empathic listening provided questions answered thoughts/feelings acknowledged reassurance provided questions encouraged Problem: Infection Goal: Absence of Infection Signs and Symptoms Outcome: Ongoing, Progressing Intervention: Prevent or Manage Infection Flowsheets Taken 06/15/20251999 by Svetlana Reilly RN Isolation Precautions: precautions maintained Taken 06/14/20252154 by Svetlana Reilly RN Fever Reduction/Comfort Measures: lightweight clothing lightweight bedding Taken 06/14/20251717 by Agueda Wolf RN Infection Management: aseptic technique maintained Problem: Cardiovascular Surgery Goal: Improved Activity Tolerance Outcome: Ongoing, Progressing Intervention: Optimize Tolerance for Activity Flowsheets (Taken 06/14/20252154) Environmental Support: calm environment promoted rest periods encouraged environmental consistency promoted personal routine supported Self-Care Promotion: independence encouraged Goal: Optimal Coping with Heart Surgery Outcome: Ongoing, Progressing Intervention: Support Psychosocial Response to Surgery Flowsheets (Taken 06/14/20252154) Supportive Measures: decision-making supported goal-setting facilitated relaxation techniques promoted self-care encouraged verbalization of feelings encouraged Family/Support System Care: presence promoted self-care encouraged support provided Goal: Absence of Bleeding Outcome: Ongoing, Progressing Intervention: Monitor and Manage Bleeding Flowsheets (Taken 06/14/20252154) Bleeding Management: dressing monitored Goal: Effective Bowel Elimination Outcome: Ongoing, Progressing Intervention: Enhance Bowel Motility and Elimination Flowsheets (Taken 06/14/20252154) Bowel Elimination Management: hygiene measures promoted Bowel Motility Enhancement: oral intake encouraged Goal: Effective Cardiac Function Outcome: Ongoing, Progressing Intervention: Optimize Cardiac Output and Blood Flow Flowsheets (Taken 06/14/20252154) Stabilization Measures: legs elevated verbal stimulation provided Dysrhythmia Management: pacing wires maintained Goal: Optimal Cerebral Tissue Perfusion Outcome: Ongoing, Progressing Intervention: Protect and Optimize Cerebral Perfusion Flowsheets Taken 06/15/20251999 Head of Bed (HOB) Positioning: HOB elevated Taken 06/14/20252154 Glycemic Management: blood glucose monitored Fever Reduction/Comfort Measures: lightweight clothing lightweight bedding Sensory Stimulation Regulation: quiet environment promoted visual stimulation minimized auditory stimulation minimized care clustered lighting decreased Cerebral Perfusion Promotion: blood pressure monitored normothermia promoted Goal: Fluid and Electrolyte Balance Outcome: Ongoing, Progressing Intervention: Monitor and Manage Fluid and Electrolyte Balance Flowsheets (Taken 06/14/20252154) Fluid/Electrolyte Management: fluids adjusted Goal: Blood Glucose Level Within Target Range Outcome: Ongoing, Progressing Intervention: Optimize Glycemic Control Flowsheets (Taken 06/14/20252154) Glycemic Management: blood glucose monitored Goal: Absence of Infection Signs and Symptoms Outcome: Ongoing, Progressing Intervention: Prevent or Manage Infection Flowsheets (Taken 06/14/20252154) Fever Reduction/Comfort Measures: lightweight clothing lightweight bedding Infection Prevention: environmental surveillance performed equipment surfaces disinfected hand hygiene promoted single patient room provided rest/sleep promoted personal protective equipment utilized Goal: Anesthesia/Sedation Recovery Outcome: Ongoing, Progressing Intervention: Optimize Anesthesia Recovery Flowsheets Taken 06/15/20251999 Patient Tolerance (IS): good Safety Promotion/Fall Prevention: activity supervised assistive device/personal items within reach clutter-free environment maintained fall prevention program maintained lighting adjusted mobility aid in reach nonskid shoes/slippers when out of bed room organization consistent safety round/check completed toileting scheduled Administration (IS): instruction provided, follow-up proper technique demonstrated Level Incentive Spirometer (mL): 800 Incentive Spirometer Predicted Level (mL): 1000 Number of Repetitions (IS): 6 Taken 06/14/20252154 Stabilization Measures: legs elevated verbal stimulation provided Reorientation Measures: clock in view Goal: Acceptable Pain Control Outcome: Ongoing, Progressing Intervention: Prevent or Manage Pain Flowsheets Taken 06/15/20251947 Pain Management Interventions: medication (see MAR) Taken 06/14/20252154 Complementary Therapy: essential oils utilized Diversional Activities: television Goal: Nausea and Vomiting Relief Outcome: Ongoing, Progressing Intervention: Prevent or Manage Nausea and Vomiting Flowsheets (Taken 06/14/20252154) Nausea/Vomiting Interventions: stimuli minimized slow deep breathing encouraged nausea triggers minimized Goal: Effective Urinary Elimination Outcome: Ongoing, Progressing Intervention: Monitor and Manage Urinary Retention Flowsheets (Taken 06/14/20252154) Urinary Elimination Promotion: catheter patency maintained Goal: Effective Oxygenation and Ventilation Outcome: Ongoing, Progressing Intervention: Promote Airway Secretion Clearance Flowsheets Taken 06/15/20251999 Patient Tolerance (IS): good Administration (IS): instruction provided, follow-up proper technique demonstrated Level Incentive Spirometer (mL): 800 Incentive Spirometer Predicted Level (mL): 1000 Number of Repetitions (IS): 6 Cough And Deep Breathing: done independently per patient Taken 06/14/20252154 Airway/Ventilation Management: airway patency maintained oxygen therapy provided position adjusted Intervention: Optimize Oxygenation and Ventilation Flowsheets (Taken 06/14/20252154) Chest Tube Safety: all connections secured Problem: Fall Injury Risk Goal: Absence of Fall and Fall-Related Injury Outcome: Ongoing, Progressing Intervention: Identify and Manage Contributors Flowsheets (Taken 06/14/20252154) Medication Review/Management: medications reviewed Self-Care Promotion: independence encouraged Intervention: Promote Injury-Free Environment Flowsheets (Taken 06/15/20251999) Safety Promotion/Fall Prevention: activity supervised assistive device/personal items within reach clutter-free environment maintained fall prevention program maintained lighting adjusted mobility aid in reach nonskid shoes/slippers when out of bed room organization consistent safety round/check completed toileting scheduled Problem: Pain Acute Goal: Optimal Pain Control and Function Outcome: Ongoing, Progressing Intervention: Optimize Psychosocial Wellbeing Flowsheets (Taken 06/14/20252154) Supportive Measures: decision-making supported goal-setting facilitated relaxation techniques promoted self-care encouraged verbalization of feelings encouraged Diversional Activities: television Spiritual Activities Assistance: hope instilled Intervention: Develop Pain Management Plan Flowsheets (Taken 06/15/20251947) Pain Management Interventions: medication (see MAR) Intervention: Prevent or Manage Pain Flowsheets (Taken 06/14/20252154) Sensory Stimulation Regulation: quiet environment promoted visual stimulation minimized auditory stimulation minimized care clustered lighting decreased Complementary Therapy: essential oils utilized Bowel Elimination Promotion: privacy promoted Sleep/Rest Enhancement: awakenings minimized natural light exposure provided relaxation techniques promoted room darkened family presence promoted regular sleep/rest pattern promoted Medication Review/Management: medications reviewed Problem: Mobility Impairment Goal: Optimal Mobility Outcome: Ongoing, Progressing Intervention: Optimize Mobility Flowsheets Taken 06/15/20251999 by Svetlana Reilly RN Activity Management: activity encouraged Taken 06/15/20251699 by Bony Thomas RN Assistive Device Utilized: four wheel walker Taken 06/14/20252154 by Svetlana Reilly RN Positioning/Transfer Devices: wedge pillows repositioning sheet Problem: Self-Care Deficit Goal: Improved Ability to Complete Activities of Daily Living Outcome: Ongoing, Progressing Intervention: Promote Activity and Functional [place] Flowsheets Taken 06/15/20251699 by Bony Thomas RN Activity Assistance Provided: assistance, stand-by Taken 06/14/20252154 by Svetlana Reilly RN Self-Care Promotion: independence encouraged Problem: Wound Goal: Optimal Coping Outcome: Ongoing, Progressing Intervention: Support Patient and Family Response Flowsheets (Taken 06/14/20252154) Supportive Measures: decision-making supported goal-setting facilitated relaxation techniques promoted self-care encouraged verbalization of feelings encouraged Family/Support System Care: presence promoted self-care encouraged support provided Goal: Optimal Functional Ability Outcome: Ongoing, Progressing Intervention: Optimize Functional Ability Flowsheets Taken 06/15/20251999 by Svetlana Reilly RN Activity Management: activity encouraged Taken 06/15/20251699 by Bony Thomas RN Activity Assistance Provided: assistance, stand-by Assistive Device Utilized: four wheel walker Goal: Absence of Infection Signs and Symptoms Outcome: Ongoing, Progressing Intervention: Prevent or Manage Infection Flowsheets Taken 06/15/20251999 by Svetlana Reilly RN Isolation Precautions: precautions maintained Taken 06/14/20252154 by Svetlana Reilly RN Fever Reduction/Comfort Measures: lightweight clothing lightweight bedding Taken 06/14/20251717 by Agueda Wolf, RN Infection Management: aseptic technique maintained Goal: Improved Oral Intake Outcome: Ongoing, Progressing Intervention: Promote and Optimize Oral Intake Flowsheets (Taken 06/14/20252154) Oral Nutrition Promotion: rest periods promoted Nutrition Interventions: diet adjusted Goal: Optimal Pain Control and Function Outcome: Ongoing, Progressing Intervention: Prevent or Manage Pain Flowsheets Taken 06/15/20251947 Pain Management Interventions: medication (see MAR) Taken 06/14/20252154 Complementary Therapy: essential oils utilized Sleep/Rest Enhancement: awakenings minimized natural light exposure provided relaxation techniques promoted room darkened family presence promoted regular sleep/rest pattern promoted Goal: Skin Health and Integrity Outcome: Ongoing, Progressing Intervention: Optimize Skin Protection Flowsheets Taken 06/15/20251999 Activity Management: activity encouraged Head of Bed (HOB) Positioning: HOB elevated Taken 06/14/20252154 Pressure Reduction Techniques: heels elevated off bed pressure points protected weight shift assistance provided Pressure Reduction Devices: positioning supports utilized Skin Protection: protective dressing applied pressure points protected protective footwear used tubing/devices free from skin contact weight shift assistance provided Goal: Optimal Wound Healing Outcome: Ongoing, Progressing Intervention: Promote Wound Healing Flowsheets (Taken 06/14/20252154) Sleep/Rest Enhancement: awakenings minimized natural light exposure provided relaxation techniques promoted room darkened family presence promoted regular sleep/rest pattern promoted Problem: Self-Care Deficit Goal: Improved Ability to Complete Activities of Daily Living Outcome: Ongoing, Progressing Intervention: Promote Activity and Functional [place] Flowsheets Taken 06/15/2025 1700 by Bony Thomas RN Activity Assistance Provided: assistance, stand-by Taken 06/14/20252154 by Svetlana Reilly RN Self-Care Promotion: independence encouraged * Consults - Nat Singletary RD - 06/15/2025 2:23 PM EDTAssociated Order(s): IP CONSULT TO NUTRITION SERVICES Adult Nutrition Evaluation Note Bradley Forrest 69 y.o. male CSN: [id number] Room/Bed 234/234A Nutrition evaluation type: assessment Reason for evaluation: provider consult Hospital course: 69 yo male S/P AVR on 06/14. Clear Liquid diet initiated. Past medical/ surgical history: has a past medical history of Cardiac murmur, Hyperlipidemia, and Hypertension. Social history: Additional comments: 06/15: Pt reports he has consumed small amounts of CLD and is content to continue on current diet for now. He confirms allergy to all seafood; will avoid Impact AR supplement. Vitals and Basic Assessment: BP: (!) 140/54 Temp: 37.9 ??C (100.2 ??F) Invasive Ventilator Initiated (ETT/Trach Only): Yes Oxygen Therapy: Supplemental oxygen O2 Delivery Method: Nasal cannula Amanda Coma Scale Score: 15 Keny Scale Score: 21 Shahid/Cubbin Pressure Risk Score: 38 Most Recent BM Date: ([employer]) GI Symptoms: Nausea, Vomiting Edema: Generalized Allergies: seafood Medications: Current Scheduled Medications[1] Current Continuous Medications[2] Current PRN Medications[3] Meds were reviewed: Yes Labs: Labs in last 18 hours CBC WBC 12.56 (H) Hb 12.8 (L) Plt 120 (L) Hct 39.4 (L) ANC 10.59 (H) INR 1.3 (H), PTT ??, Anti-Xa ?? BMP Na 138 Cl 107 BUN 17 Glu 140 (H) K 4.5; 4.6 Co2 18 (L) Cr 0.84 Ca 8.0 (L) iCa 4.6 Mg 2.5 (H), Phos 2.6 Lactate 0.9 LFT AST ?? AlkPhos ?? T Prot ?? ALK ?? Bili ?? Alb ?? D.Bili ?? HgA1C 5.7 (06/09) Anthropometrics: Height: 170.2 cm (5' 7 ) Weight: 87.1 kg (192 lb 0.3 oz) BMI (Calculated): 30.07 Weight Evaluation: Obese-Class 1 (BMI 30-34.9) [place] Body Weight (kg): 67.3 Percent [place] Body Weight: 130 Adjusted Body Weight (kg): 72.4 Estimated Needs: Kcal/ K-28 Kcal Provided: [id number] Metabolic Cart Study Results: Current Nutrition Intake: Diet Order: Adult Diet Diet Texture: Clear liquid Adult Carbohydrate Restriction: Consistent CHO 2 (6180-5068 Venkat, 80 g/meal) Fat Restriction: Cardiac Percent Meals Eaten (%): establishing Diet Experience and Nutrition History: Diet Education Provided: Will monitor Pertinent home medications: Roman [employer] needs: Nutrition Focused Physical Exam: Physical exam performed on (date): 06/15 Temples (muscles): None Clavicle (muscle): None Shoulder (muscle): None Orbital (fat): None Triceps (fat): None Energy Intake: reported adequate [employer] Weight Loss: denies Assessment of Malnutrition: Malnutrition Identified: No Nutrition Problem: Increased nutrient needs prot related to post-op recovery as evidenced by indication for ONS. Status of Nutrition Diagnosis: New Nutrition Interventions and Recommendations: - CC2, Cardiac diet as tolerated. - Adding Apollo BID to assist with wound healing. Avoiding Impact AR given seafood allergy. - Document meal intake and monitor. Nutrition Monitoring and Goals: - intake >/= 75% meals Acuity Level: [address] [1] acetaminophen, 650 mg, Oral, q4h DEMETRIUS docusate sodium, 100 mg, Oral, BID enoxaparin, 40 mg, Subcutaneous, Daily insulin lispro, 0-5 Units, Subcutaneous, TID with meals insulin lispro, 0-3 Units, Subcutaneous, Twice at night melatonin, 9 mg, Oral, Nightly methocarbamol, 500 mg, Oral, TID metoprolol tartrate, 12.5 mg, Oral, BID mupirocin, 1 Application, Each Nostril, BID rosuvastatin, 40 mg, Oral, Nightly senna, 17.2 mg, Oral, Nightly sodium chloride, 10 mL, Intravenous, q12h warfarin, 4 mg, Oral, Daily [2] clevidipine, 2 mg/hr, Last Rate: Stopped (06/15/25 1200) [3] PRN medications: albumin human, glucose OR dextrose 10 % OR dextrose 10 % OR glucagon (human recombinant), hydrALAZINE OR hydrALAZINE, HYDROmorphone OR HYDROmorphone, labetalol OR labetalol, ondansetron, oxyCODONE OR oxyCODONE, polyethylene glycol, sodium chloride, sodium chloride * Progress Notes - Sangeeta Townsend RN - 06/15/2025 1:37 PM EDT Case Management Adult Initial Progress Note Bradley Forrest 69 y.o. male CSN: [id number] Admission: 06/14/2025 5:18 AM Primary Problem: Severe aortic regurgitation [employer] reviewed chart and spoke with the patient at bedside to complete this Initial Case Management Assessment. PCP: Kamran Singh MD Emergency Contact: Extended Emergency Contact Information Primary Emergency Contact: Naheed Forrest [address]: [address] [place] [address] [address]A [address] [place] [address] [facility] Relation: Spouse Insurance: Primary Visit Coverage Payer Plan Sponsor Code Group Number Group Name MARY HERNANDEZ [facility] [id number] Primary Visit Coverage Subscriber Subscriber ID Subscriber Name Subscriber SSN Subscriber Address [id number] Bradley Forrest [id number] [place] [address] JITENDRA [facility] Secondary Visit Coverage Payer Plan Sponsor Code Group Number Group Name MEDICARE MEDICARE A & B Secondary Visit Coverage Subscriber Subscriber ID Subscriber Name Subscriber SSN Subscriber Address [id number] Bradley Forrest [id number] [place] [address] JITENDRA [facility] Patient information: Primary Caregiver: Self Support System: Immediate family Daily Living Activities: Functional Status: Independent Living Arrangements: Spouse/Significant other Type of Residence: Private residence, Single Level [address] [place] [address] Current DME: Equipment Currently Used at Home: cane, straight, walker, standard Current DME Provider: n/a Income Information: Income Source: Employed Income/Expense Information: Income meets expenses Current Resources Utilized: None Housing Circumstances-Z Codes: Housing Circumstances (select all that apply): None Applicable Patient Referred to: Financial Resources: Other (Comment) Anticipated Discharge Date: tbd Patient's Discharge Goal: Patient/Family Anticipates Transition to: home Assistance Available at Discharge: Current Outpatient/Agency/Support Group: DME Availability of Care Givers (#Hours): No assistance needed Discharge Transport: Transportation Anticipated: family or friend will provide Follow Up Transport: Transportation Needed to Follow up Appoinments: Family/Friend will Provide Home Health / Home Infusion / Outpatient Dialysis Services: Current DME Provider: n/a Living Will/Advance Directive/Power of Gymnastics Coach /Guardian: Unable to assess: No Have you reviewed your Advance Directive and is it valid for this stay?: No Advance Directive: Patient does not have advance directive Information Provided on Healthcare Directives: No Pre-existing DNR/DNI Order: No Patient Requests Assistance: No Additional Comments:HESHAM HAIDER met with patient at bedside for initial eval. Confirmed address: on file.Lives with in a single level home with one step to enter. Patient states he was independent prior to admit. Current DME consists of straight cane and standard walker. Denies prior HH/O2/HD/Abx. PCP is Kamran Singh. Has [employer] insurance and uses [facility]. Family to transport and assist as needed at discharge. No current SW/CM needs identified. Will continue to follow and assist. Sangeeta Townsend RN * Progress Notes - Sy Fernández, PharmD - 06/15/2025 1:37 PM EDT Antithrombosis Monitoring: Warfarin Bradley Forrest is a 69 y.o. male who has been started on warfarin. Warfarin Indication & Goal Anticoagulation Indication/Goal Warfarin Indication: Mechanical aortic valve Duration of Anticoagulation: Indefinite Target INR: 2.5-3.5 Warfarin Prior to Admission: No Assessment Warfarin Drug Interactions Inhibitors of Warfarin Metabolism: HMG Co-A Inhibitors (Statins) Interacting medications started/stopped in past 72 hours?: No Any warfarin reversal given?: No Anticoagulation Assessment Warfarin Sensitivity Risk Factors: Baseline pre-warfarin INR >1.2 and especially INR > 1.4;Elderly, age > 65;Recent cardiac surgery;Surgery and blood loss Warfarin Sensitivity Score: High (1 or more Warfarin Sensitivity Risk Factors) Nutritional Intake: Normal PO Intake Today's INR : Subtherapeutic Warfarin INR & Dose Trends Date INR Warfarin Dose (mg) Comments 06/15 1.3 4mg pLov started Plan Anticoagulation Plan Warfarin Pharmacist Managed?: No [facility] Warfarin Dosing Protocol Followed?: No Reason for Protocol Departure: CT Surgery Bridging Agent in Conjunction With Warfarin? : No INR Monitoring Frequency: Monitor INR daily Patient Education : Incomplete Warfarin dosing and adjustment per CT surgery provider. Transitions of Care Outpatient provider managing warfarin after [facility] discharge: TBD Recommended date for outpatient INR assessment: TBD Will continue to follow patient's clinical progress daily. Sy Fernández PharmD PGY-2 Cardiology Juvenile Correctional Officer Available via Secure Chat * Assessment & Plan Note - Belle Smith MD - 06/15/2025 10:46 AM EDT Associated Problem(s): Severe aortic regurgitation (Deleted) - s/p Aortic Valve Replacement 06/14 - asa/statin/BB when able - dvt prophylaxis and warfarin today - wean pressors/inotropes as able - monitor CT output - Monitor per protocol. * Assessment & Plan Note - Belle Smith MD - 06/15/2025 10:46 AM EDT Associated Problem(s): BMI 30.0-30.9,adult (Resolved 06/20/2025) - complicates all aspects of care -Monitor per protocol. * Assessment & Plan Note - Belle Smith MD - 06/15/2025 10:46 AM EDT Associated Problem(s): High cholesterol - statin today -Monitor per protocol. * Assessment & Plan Note - Belle Smith MD - 06/15/2025 10:46 AM EDT Associated Problem(s): Diabetes (Deleted) -Monitor per protocol. * Assessment & Plan Note - Belle Smith MD - 06/15/2025 10:46 AM EDT Associated Problem(s): Hypertension -Monitor per protocol. - 40 lasix today - restart home meds as appropriate * Assessment & Plan Note - Belle Smith MD - 06/15/2025 10:46 AM EDT Associated Problem(s): CAD (coronary artery disease) -Monitor per protocol. * Assessment & Plan Note - Belle Smith MD - 06/15/2025 10:46 AM EDT Associated Problem(s): History of coronary angioplasty with insertion of stent -Monitor per protocol. * Assessment & Plan Note - Belle Smith MD - 06/15/2025 10:46 AM EDT Associated Problem(s): Ascending aortic aneurysm (CMS/HCC) (Resolved 06/20/2025) -Monitor per protocol. * Assessment & Plan Note - Barbara Sosa PA - 06/15/2025 10:46 AM EDT Associated Problem(s): Aortic valve regurgitation (Resolved 06/20/2025) >>ASSESSMENT AND PLAN FOR AORTIC VALVE REGURGITATION WRITTEN ON 06/15/2025 1:41 PM BY BELLE SMITH MD - s/p AVR 06/14 - Monitor per protocol. >>ASSESSMENT AND PLAN FOR SEVERE AORTIC REGURGITATION WRITTEN ON 06/15/2025 1:41 PM BY BELLE SMITH MD - s/p Aortic Valve Replacement 06/14 - asa/statin/BB when able - dvt prophylaxis and warfarin today - wean pressors/inotropes as able - monitor CT output - Monitor per protocol. * Assessment & Plan Note - Belle Smith MD - 06/15/2025 10:46 AM EDT Associated Problem(s): Benign prostatic hyperplasia -Monitor per protocol. * Assessment & Plan Note - Belle Smith MD - 06/15/2025 10:46 AM EDT Associated Problem(s): Weaning from mechanically assisted ventilation initiated ([facility]) ([id number]/20/2025) Arrived intubated and sedated post-op - fast track extubation as able - extubated 06/14, on 1L nasal canula * Assessment & Plan Note - Belle Smith MD - 06/15/2025 10:46 AM EDT Associated Problem(s): Other secondary hypertension -Monitor per protocol. -SBP<120 in initial post-op period -clevidipine * Assessment & Plan Note - Janene Carmen MD - 06/15/2025 10:22 AM EDT Associated Problem(s): Weaning from mechanically assisted ventilation initiated (CMS/HCC) (Ihtogsxa10/20/2025) Arrived intubated and sedated post-op - fast track extubation as able - 06/15 extubated * Assessment & Plan Note - Janene Carmen MD - 06/15/2025 10:21 AM EDT Associated Problem(s): Diabetes (Deleted) -Hgb A1c pending Glucose, Plasma (mg/dL) Date/Time Value 06/15/2025 0020 140 (H) Sliding Scale Insulin for glycemic control while in ICU Hold home regimen while in ICU * Assessment & Plan Note - Janene Carmen MD - 06/15/2025 10:21 AM EDT Associated Problem(s): History of coronary angioplasty with insertion of stent -No ASA, plavix when chest tubes come out per CT surg * Progress Notes - Joceline Crain - 06/15/2025 9:50 AM EDT Physical Therapy Evaluation Patient Name: Bradley Forrest Today's Date: 06/15/2025 PT Discharge Recommendations: Home with assistance Equipment Recommended: Rollator Total Treatment Time: 40 minutes History Bradley Forrest is 69 y.o. male admitted 06/14/2025 for work-up of Severe aortic regurgitation. Problem List Active Hospital Problems Diagnosis Date Noted Other secondary hypertension 06/15/2025 Weaning from mechanically assisted ventilation initiated ([facility]) 06/14/2025 Diabetes 05/05/2025 Benign prostatic hyperplasia 05/05/2025 CAD (coronary artery disease) 04/14/2025 History of coronary angioplasty with insertion of stent 04/14/2025 Ascending aortic aneurysm ([facility]) 04/14/2025 Aortic valve regurgitation 04/14/2025 BMI 30.0-30.9,adult 03/10/2025 High cholesterol 12/23/2019 Hypertension 12/23/2019 Severe aortic regurgitation 05/05/2025 Procedures 06/14/2025 Procedure(s): Aortic valve replacement Past Medical History Patient has a past medical history of Cardiac murmur, Hyperlipidemia, and Hypertension. Past Surgical History Patient has a past surgical history that includes Other surgical history (N/A); Colonoscopy; Shoulder surgery (Right); Knee surgery (Right); and Coronary stent placement. Precautions Medical Precautions: Sternal, Fall precautions Subjective Pt agreeable to PT sessions Participants in Care Family/Caregiver Present: Yes Family/Caregiver: (Sister) Presentation Oxygen Therapy: Supplemental oxygen O2 Delivery Method: Nasal cannula O2 Flow Rate (L/min): 1 L/min Lines and Tubes: Telemetry Arterial Line 06/14/25 Brachial (Active) Pacer Wires (Active) CVC Double Lumen 06/14/25 Right Internal jugular (Active) Chest Tube Mediastinal 36 Fr (Active) Urethral Catheter Temperature probe 16 Fr. (Active) Peripheral IV 06/14/25 Posterior;Right Hand (Active) Pre-Session: Sitting in chair, Lines intact Post-Session: Supine, Head of bed elevated, Lines intact, RN notified, Call light in reach Post-Session Comments: Needs in reach Home Living/Set-up Lives With: Spouse Home Type: House Home Adaptive Equipment: Cane Home Layout: One level, Stairs to enter with rails Number of Stairs: 1 Bathroom: Tub/Shower: Walk-in shower, Grab bars Home Living Comments: Pt reports he will have assist for IADLs, recently had a horse riding accident, breaking several ribs. She is independent but unable to provide substantial physical assistance. 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 Pt positioned for comfort at end of session. Delirium Screening RASS: Alert and calm Confusion Assessment Method-ICU (CAM-ICU/PCAM-ICU) Feature 3: Altered Level of Consciousness: Negative Cognition Overall Cognitive Status: Within Functional Limits Arousal/Alertness: Appropriate responses to stimuli Mood/Behavior: Alert Orientation Level: Oriented X4 Single Step Commands: Consistently Multi-Step Commands: Consistently Method of Communication: Verbal Right Upper Extremity Examination RUE Assessment: Within Functional Limits Manual Muscle Testing - RUE: (N/T secondary to sternal precautions) Sensation Light Touch: Right Upper Extremity: Intact Left Upper Extremity Examination LUE ROM Assessment LUE Assessment: Within Functional Limits Manual Muscle Testing - LUE Manual Muscle Testing - LUE: (N/T secondary to sternal precautions) Sensation Light Touch: Left Upper Extremity: Intact Right Lower Extremity Examination RLE ROM Assessment RLE Assessment: Within Functional Limits Manual Muscle Testing - RLE Manual Muscle Testing - RLE: Within functional limits Sensation Light Touch: Right Lower Extremity: Intact Left Lower Extremity Examination LLE Assessment: Within Functional Limits Manual Muscle Testing: Within functional limits Sensation Light Touch: Left Lower Extremity: Intact Bed Mobility Bed Mobility Exam: Sit to Supine Level of [place]: Maximum assist (25% patient's effort) Physical/Nonphysical Assist: Verbal Cues, Maximal cues, Additional assist utilized for safety Transfers Transfer Exam: Sit to stand Level of [place]: Moderate assist (50% patient's effort) Physical/Nonphysical Assist: Verbal Cues, Moderate cues, Additional assist utilized for safety Assistive Device: Rollator Transfer Exam: Stand to Sit Level of [place]: Minimum assist (75% patient's effort) Physical/Nonphysical Assist: Verbal Cues, Moderate cues, 1 person + 1 person to manage equipment, Nonverbal cues (demo/gestures) Assistive Device: Rollator Ambulation Device: Rollator Assistance: Contact guard assist Distance : 60'x2 with brief standing break between intervals Ambulation Comments: Verbal cues provided for upright, relaxed posture, increased step length, AD management, and pacing. Balance Postural Appearance Posture: Rounded shoulders Static Sitting Balance Static Sitting-Balance Support: Feet supported Static Sitting-Level of Assistance: Standby assist Dynamic Sitting Balance Dynamic Sitting-Balance Support: Feet supported Level of Assistance: Contact guard Static Standing Balance Static Standing-Balance Support: Right upper extremity support, Left upper extremity support Static Standing-Level of Assistance: Contact guard Dynamic Standing Balance Dynamic Standing-Balance Support: Right upper extremity support, Left upper extremity support Dynamic Standing Level of Assistance: Contact guard Therapeutic Activity (25 minutes) Pt participated in therapeutic activities including bed mobility, functional transfers, and ambulation to improve strength, balance, endurance and independence with functional mobility. Increased time required at beginning of session for extensive line management and room organization prior to mobility. Verbal and tactile cues provided by therapist for hand placement and body mechanics to improvesafety and efficiency with sit to stand transfers. Pt completed ambulation with increased time due to decreased amber and step length. Pt tolerated 60'x2 with brief standing rest break between intervals. Pt required cues for log roll technique to complete sit to supine and maintain sternal precautions. Pts MAP noted to drop briefly from (79) to (67) and then increased as high as (84) while walking. HR and SpO2 WNL with activity. Standardized Assessments Standardized Assessments Standardized Assessments: [facility] [address] 6-Clicks Mobility Assessment [facility] [address] 6-Clicks Mobility Assessment Difficulty patient has turning over in bed (including adjusting bedclothes, sheets, and blankets)?:A little Difficulty patient has sitting down on and standing up from a chair with arms (wheelchair, bedside commode, etc.)?: A lot Difficulty patient has moving from lying on back to sitting on the side of the bed?: A lot How much help does the patient need moving to and from a bed to a chair (including a wheelchair)?: A little How much help does the patient need to walk in hospital room?: A little How much help does the patient need climbing 3-5 steps with a railing?: A little [facility] [address] 6-Clicks Mobility Assessment Total : 16 No data recorded Assessment In addition to PT initial assessment, pt participated in therapeutic activities. Pt tolerated PT interventions with no adverse effects and maintained vital signs WNL. Pt primarily limited by post-operative pain. Pt presents with impairments listed below and would benefit from continued skilled PT in tervention to progress functional mobility and return to prior level of function. Impairments: Decreased endurance, ventilation, and/or gas exchange, Impaired attention/alertness, Impaired postural/trunk control, Impaired gait dynamics/performance, Impaired functional mobility/transfers, Impaired balance, Pain, Decreased strength Activity Limitations: Inability to ambulate independently, Inability to transfer independently, Inability to ambulate community distances, Inability to complete ADLs independently Participation Restrictions: Self-care, Home management, Community leisure Activity Tolerance: Tolerates 30 min activity with multiple rests Evaluation/Treatment Tolerance: Patient limited by pain Diagnosis: impaired functional mobility and activity tolerance Rehab Potential: Good, to achieve stated therapy goals Eval Complexity History Profile: 1 - 2 personal factors and/or comorbidities Clinical Presentation: Evolving clinical presentation with changing characteristics Clinical Decision Making: Moderate complexity PT Recommendations Discharge Destination: Home with assistance Discharge Equipment: Rollator Plan Planned PT Interventions Balance training, Bed mobility training, Gait training, Transfer training, ROM, Strengthening, Functional Mobility PT Frequency 2 - 5 times per week PT Duration 2 weeks Goals PT GOAL DETAILS Time Frame PT Goal 1: Pt will perform supine <> sit SBA x1 while maintaining sternal precautions 2 weeks PT Goal 2: Pt will perform sit to stand and bed to chair transfer with SBA x1 and LRAD 2 weeks PT Goal 3: Pt will ambulate 600' SBA x1 with LRAD and no rest breaks or losses of balance 2 weeks PT Goal 4: Pt will be IND with HEP and d/c recs 2 weeks Written by Joceline Crain on 06/15/25 at 12:28 PM. * Progress Notes - Glenny Ahuja - 06/15/2025 9:49 AM EDT Occupational Therapy Evaluation Patient Name: Bradley Forrest Today's Date: 06/15/2025 Total Treatment Time: 40 minutes OT Discharge Recommendations: Home with assistance Equipment Recommended: Rollator History Bradley Forrest is 69 y.o. male admitted 06/14/2025 for work-up of Severe aortic regurgitation. Problem List Active Hospital Problems Diagnosis Date Noted Other secondary hypertension 06/15/2025 Weaning from mechanically assisted ventilation initiated (CMS/HCC) 06/14/2025 Diabetes 05/05/2025 Benign prostatic hyperplasia 05/05/2025 CAD (coronary artery disease) 04/14/2025 History of coronary angioplasty with insertion of stent 04/14/2025 Ascending aortic aneurysm (CMS/HCC) 04/14/2025 Aortic valve regurgitation 04/14/2025 BMI 30.0-30.9,adult 03/10/2025 High cholesterol 12/23/2019 Hypertension 12/23/2019 Severe aortic regurgitation 05/05/2025 Procedures 06/14/2025 Procedure(s): Aortic valve replacement Past Medical History Patient has a past medical history of Cardiac murmur, Hyperlipidemia, and Hypertension. Past Surgical History Patient has a past surgical history that includes Other surgical history (N/A); Colonoscopy; Shoulder surgery (Right); Knee surgery (Right); and Coronary stent placement. Precautions Medical Precautions: Sternal, Fall precautions Subjective I feel pretty good now. Participants in Care Family/Caregiver Present: Yes Family/Caregiver: (Sister) Presentation Oxygen Therapy: Supplemental oxygen O2 Delivery Method: Nasal cannula O2 Flow Rate (L/min): 2 L/min Lines and Tubes: Telemetry Arterial Line 06/14/25 Brachial (Active) Pacer Wires (Active) CVC Double Lumen 06/14/25 Right Internal jugular (Active) Chest Tube Mediastinal 36 Fr (Active) Urethral Catheter Temperature probe 16 Fr. (Active) Pulmonary Artery Catheter 06/14/25 Internal jugular Right (Active) Peripheral IV 06/14/25 Posterior;Right Hand (Active) Pre-Session: Sitting in chair, Lines intact Post-Session: Supine, Head of bed elevated, Lines intact, RN notified, Call light in reach Post-Session Comments: Needs in reach Home Living/Set-up Lives With: Spouse Home Type: House Home Adaptive Equipment: Cane Home Layout: One level, Stairs to enter with rails Number of Stairs: 1 Bathroom: Tub/Shower: Walk-in shower, Grab bars Home Living Comments: Pt reports he will have assist for IADLs, recently had a horse riding accident, breaking several ribs. She is independent but unable to provide substantial physical assistance. 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 Objective Pain Pt reporting sternal pain: unrated Pillow support provided at end of session and RN aware. Delirium Screening RASS: Alert and calm Confusion Assessment Method-ICU (CAM-ICU/PCAM-ICU) Feature 3: Altered Level of Consciousness: Negative Cognition Overall Cognitive Status: Within Functional Limits Arousal/Alertness: Appropriate responses to stimuli Mood/Behavior: Alert Orientation Level: Oriented X4 Single Step Commands: Consistently Multi-Step Commands: Consistently Method of Communication: Verbal Right Upper Extremity Examination RUE ROM Assessment RUE Assessment: Within Functional Limits Manual Muscle Testing - RUE: (N/T secondary to sternal precautions) Sensation Light Touch: Right Upper Extremity: Intact Left Upper Extremity Examination LUE ROM Assessment LUE Assessment: Within Functional Limits Manual Muscle Testing - LUE: (N/T secondary to sternal precautions) Sensation Light Touch: Left Upper Extremity: Intact Right Lower Extremity Examination RLE ROM Assessment RLE Assessment: Within Functional Limits Manual Muscle Testing - RLE: Within functional limits Sensation Light Touch: Right Lower Extremity: Intact Left Lower Extremity Examination LLE ROM Assessment LLE Assessment: Within Functional Limits Manual Muscle Testing: Within functional limits Sensation Light Touch: Left Lower Extremity: Intact Bed Mobility Bed Mobility Exam: Sit to Supine Level of [place]: Maximum assist (25% patient's effort) Physical/Nonphysical Assist: Verbal Cues, Maximal cues, Additional assist utilized for safety Transfers Transfer Exam: Sit to stand Level of [place]: Moderate assist (50% patient's effort) Physical/Nonphysical Assist: Verbal Cues, Moderate cues, Additional assist utilized for safety Assistive Device: Rollator Transfer Exam: Stand to Sit Level of [place]: Minimum assist (75% patient's effort) Physical/Nonphysical Assist: Verbal Cues, Moderate cues, 1 person + 1 person to manage equipment, Nonverbal cues (demo/gestures) Assistive Device: Rollator Balance Postural Appearance Posture: Rounded shoulders Static Sitting Balance Static Sitting-Balance Support: Feet supported Static Sitting-Level of Assistance: Standby assist Dynamic Sitting Balance Dynamic Sitting-Balance Support: Feet supported Level of Assistance: Contact guard Static Standing Balance Static Standing-Balance Support: Right upper extremity support, Left upper extremity support Static Standing-Level of Assistance: Contact guard Dynamic Standing Balance Dynamic Standing-Balance Support: Right upper extremity support, Left upper extremity support Dynamic Standing Level of Assistance: Contact guard Self-Care Interventions Self Care/Home Management (ADLs) Time Entry: 25 Self-Care Interventions: Pt educated on sternal precautions prior to mobility and importance of carryover. Pt verbalized understanding but demonstrated fair(- ) carryover. Pt. participated in functional endurance tasks in preparation for high level ADL routines. Pt. completed sit to stand from recliner with mod A and cues for hand/foot placement. Pt. completed 60ftx2 navigation task at hallway level to simulate ADL's in home environment with CGA and rollator. Pt. tolerated task well with no safety concerns noted and one brief standing rest break required. Cues also provided throughout session to promote upright posture, activity pacing, and pursed lip breathing with improved carryover noted with session progression. OT monitored vital signs closely throughout session to assess for patient???s tolerance to treatment, with MAP dropping briefly from (79) to (67) and then increasing as high as (84) while walking. Pt required max cues to sequence log roll when returning to supine position, with cues provided to breathe out during transfer to decrease incisional pain with rapid position change. Additional time spent educating patient/family on ADLs with sternal precautions and potential needs for AE/DME at discharge. Pt educated on role of OT, discharge recommendations, and expectations for mobility while inpatient. Pt verbalized understanding but would benefit from continued education to improve carryover. Standardized Assessments [facility] 6-Click Daily Activities Help from Other: Don/Doff Regular Lower Body Clothings: A lot Help From Other: Bathing: A lot Help From Other: Toileting: A lot Help From Other: Don/Doff Upper Body Clothings: Little Help From Other: Grooming: Little Help From Other: Eating Meals: None [facility] 6 Click - Daily Activities Score: 16 Assessment In addition to OT evaluation, pt participated in OT session with a focus on ADL retraining and functional endurance. Pt tolerated session with fair energy for task. Pt is most limited by endurance and pain. Pt would benefit from continued skilled OT services to address AE/DME training, activity tolerance, and overall muscle power needed for increased independence with ADLs and functional mobility. OT Findings: Impaired ADL performance, Impaired IADL performance, Decreased endurance/ventilation/gas exchange, Impaired functional mobility, Impaired balance, Impaired postural/trunk control Evaluation/Treatment Tolerance: Patient limited by fatigue, Patient limited by pain Rehab Potential: Good, to achieve stated therapy goals Eval Complexity Occupational Profile: Expanded review of medical/therapy records and additional review of physical,cognitive, or psychosocial history Performance Deficits: Activities of daily living (ADLs), Instrumental activities of daily living (IADLs), Work, Body structures, Body functions, Physical, Personal Clinical Decision Making: Moderate Overall Eval complexity: Moderate OT Recommendations Discharge Destination: Home with assistance Discharge Equipment: Rollator Plan Planned OT Interventions ADL retraining, IADL retraining, Balance training, Bed mobility Training, Transfer training, Functional mobility, Caregiver education OT Frequency 2 - 5 times per week OT Duration 2 weeks Goals OT GOAL DETAILS Time Frame OT Goal 1: Pt will complete total body dressing skills with modified independence and appropriate adaptive device. 2 weeks OT Goal 2: Pt will complete toileting skills with modified independence and appropriate adaptive device. 2 weeks OT Goal 3: Pt will complete functional transfers with modified independence and appropriate adaptive device to increase independence with toilet transfers. 2 weeks OT Goal 4: Pt will independently adhere to sternal precautions during all ADL tasks and functional transfers. 2 weeks Written by Glenny Ahuja on 06/15/25 at 11:49 AM. * Progress Notes - Belle Smith MD - 06/15/2025 9:19 AM EDTAssociated Order(s): Critical Care Post-Procedure Diagnose(s): Other secondary hypertension Critical Care Performed by: Belle Smith MD Authorized by: Belle Smith MD Critical care provider statement: Critical care time (minutes): 38 Critical care time was exclusive of: Separately billable procedures and treating other patients andteaching time Critical care was time spent personally by me on the following activities: Development of treatmentplan with patient or surrogate, ordering and performing treatments and interventions, discussions with consultants, ordering and review of laboratory studies, discussions with primary provider, ordering and review of radiographic studies, evaluation of patient's response to treatment and examination of patient Critical care statement: I saw and evaluated the patient with the resident/ fellow. I discussed thecase with the resident/ fellow and agree with the findings and plan as documented. 06/15/25 Bradley Forrest is a 69 y.o. male who presents with Severe aortic regurgitation. If applicable, patient is s/p Procedure(s) and Anesthesia Type: * Aortic valve replacement - General. Patient is 1 Day Post-Op with Cardiothoracic Surgery. Past 24 hours: PM: Weaning cleviprex gtt. Added anti-Htn PRNs. Epi off. X1 episode of emesis w/ initiation of CLD.Pacer inappropriate firing, disconnected. AM: weaning pressors, clevidipine @1. Start metoprolol 12.5mg BID, statin. Resume plavix tomorrow after chest tubes d/c. In afternoon, consider advancing diet. Start lovenox. Dc swan, consider dc'anastasiia line in afternoon if appropriate. Restarting home meds as able. Lasix 40mg IV. Start BB Lines/Drains/Tubes: Patient Lines/Drains/Airways Status Active Active LDAs Name Placement date Placement time Site Days CVC Double Lumen 06/14/25 Right Internal jugular 06/14/25 0832 Internal jugular 1 Peripheral IV 06/14/25 Posterior;Right Hand 06/14/25 0620 Hand 1 Chest Tube Mediastinal 36 Fr 06/14/25 1327 Mediastinal less than 1 Urethral Catheter Temperature probe 16 Fr. 06/14/25 0822 -- 1 Arterial Line 06/14/25 Brachial 06/14/25 0808 Brachial 1 Pulmonary Artery Catheter 06/14/25 Internal jugular Right 06/14/25 0832 Internal jugular 1 GCS: [place] Coma Scale Score: 15 Review of Systems 14 point ROS reviewed and otherwise negative or unobtainable except as noted above or in HPI. Vital signs: Vitals: 06/15/25 0800 BP: Pulse: 79 Resp: 20 Temp: 37.7 ??C (99.9 ??F) SpO2: 94% Intake/Output Summary (Last 24 hours) at 06/15/2025 0920 Last data filed at 06/15/2025 0800 Gross per 24 hour Intake 1321.93 ml Output 2442 ml Net -1120.07 ml Physical Exam Constitutional: General: He is not in acute distress. Appearance: He is not toxic-appearing. HENT: Head: Normocephalic and atraumatic. Mouth/Throat: Mouth: Mucous membranes are moist. Eyes: General: Right eye: No discharge. Left eye: No discharge. Extraocular Movements: Extraocular movements intact. Pupils: Pupils are equal, round, and reactive to light. Cardiovascular: Rate and Rhythm: Normal rate and regular rhythm. Pulses: Normal pulses. Heart sounds: Normal heart sounds. Pulmonary: Effort: Pulmonary effort is normal. No respiratory distress. Breath sounds: Normal breath sounds. No wheezing. Chest: Comments: Midline incision with dressing covering Skin: General: Skin is warm and dry. Coloration: Skin is not jaundiced. Neurological: Mental Status: He is alert and oriented to person, place, and time. Psychiatric: Mood and Affect: Mood normal. Behavior: Behavior normal. Thought Content: Thought content normal. Labs in last 18 hours: CBC WBC 12.56 (H) Hb 12.8 (L) Plt 120 (L) Hct 39.4 (L) ANC 10.59 (H) INR 1.3 (H), PTT ??, Anti-Xa ?? BMP Na 138 Cl 107 BUN 17 Glu 140 (H) K 4.5; 4.6 Co2 18 (L) Cr 0.84 Ca 8.0 (L) iCa 4.6 Mg 2.5 (H), Phos 2.6 Lactate 0.9 LFT AST ?? AlkPhos ?? T Prot ?? ALK ?? Bili ?? Alb ?? D.Bili ?? Imaging as available: === 06/14/25 === XR CHEST 1 VIEW - Narrative - CLINICAL INDICATION: Post-Op Cardiac Surgery TECHNIQUE: XR CHEST 1 VIEW COMPARISON: Chest radiograph 06/14/2025 FINDINGS: Enlarged cardiac silhouette stable status post median sternotomy. Interval extubation and removal of NG tube. Right internal jugular approach [place]-Shira catheter and mediastinal drain in unchanged position. No pneumothorax or pleural effusions. Ongoing interstitial edema. - Impression - Interval extubation and removal of NG tube Otherwise no significant changes CRITICAL RESULT: No. COMMUNICATION: Per this written report. By electronically signing this report, I, the attending physician, attest that I have personally reviewed the images/data for the above examination(s) and agree with the final edited report. Drafted by Patel Taylor MD on 06/15/2025 8:29 AM Final report signed by Idania Edmonds MD on 06/15/2025 8:47 AM Reviewed and agree with above. Assessment and Plan: This patient is critically ill. Assessment & Plan Severe aortic regurgitation Present on Admission: Unknown - s/p Aortic Valve Replacement 06/14 - asa/statin/BB when able - dvt prophylaxis and warfarin today - wean pressors/inotropes as able - monitor CT output - Monitor per protocol. BMI 30.0-30.9,adult Present on Admission: Not Applicable - complicates all aspects of care -Monitor per protocol. High cholesterol Present on Admission: Yes - statin today -Monitor per protocol. Diabetes Present on Admission: Yes -Monitor per protocol. Hypertension Present on Admission: Yes -Monitor per protocol. - 40 lasix today - restart home meds as appropriate CAD (coronary artery disease) Present on Admission: Yes -Monitor per protocol. History of coronary angioplasty with insertion of stent Present on Admission: Not Applicable -Monitor per protocol. Ascending aortic aneurysm (CMS/HCC) Present on Admission: Yes -Monitor per protocol. Aortic valve regurgitation Present on Admission: Yes - s/p AVR 06/14 - Monitor per protocol. Benign prostatic hyperplasia Present on Admission: Yes -Monitor per protocol. Weaning from mechanically assisted ventilation initiated (CMS/HCC) Present on Admission: Not Applicable Arrived intubated and sedated post-op - fast track extubation as able - extubated 06/14, on 1L nasal canula Other secondary hypertension Present on Admission: No -Monitor per protocol. -SBP<120 in initial post-op period -clevidipine Vicente Rutledge DO * Progress Notes - Phillip Clark MD - 06/15/2025 6:48 AM EDT Bradley Forrest Patient was seen and examined with resident physicians and CCM. Morning chest x- ray reviewed. Labs in last 18 hours CBC WBC 13.98 (H) Hb 13.6 (L) Plt 158 Hct 41.0 ANC ?? INR 1.3 (H), PTT 29, Anti-Xa ?? BMP Na 139 Cl 109 (H) BUN 16 Glu 194 (H) K 4.5 Co2 20 (L) Cr 0.85 Ca 8.2 (L) iCa 4.5 (L) Mg 2.7 (H), Phos 2.3 (L) Lactate 0.9 LFT AST ?? AlkPhos ?? T Prot ?? ALK ?? Bili ?? Alb ?? D.Bili ?? Current Scheduled Medications[1] Current Continuous Medications[2] PAP: (16-40)/(8-28) 23/10 CO: [5.1 L/min-6.2 L/min] 6.2 L/min CI: [2.6 L/min/m2-3.1 L/min/m2] 3.1 L/min/m2 Visit Vitals BP 104/57 (BP Location: Right arm, Patient Position: Lying) Pulse 72 Temp 37.4 ??C (99.3 ??F) (Core) Ht 1.702 m (5' 7 ) Wt 87.1 kg (192 lb 0.3 oz) SpO2 94% BMI 30.07 kg/m?? Intake/Output Summary (Last 24 hours) at 06/15/2025 0648 Last data filed at 06/15/2025 0600 Gross per 24 hour Intake 1315.76 ml Output 2322 ml Net -1006.24 ml Physical Exam Constitutional: General: He is not in acute distress. HENT: Head: Normocephalic and atraumatic. Mouth/Throat: Mouth: Mucous membranes are moist. Eyes: Extraocular Movements: Extraocular movements intact. Cardiovascular: Rate and Rhythm: Normal rate and regular rhythm. Pulmonary: Effort: Pulmonary effort is normal. No respiratory distress. Abdominal: General: There is no distension. Palpations: Abdomen is soft. Skin: General: Skin is warm. Capillary Refill: Capillary refill takes less than 2 seconds. Neurological: General: No focal deficit present. Mental Status: He is alert and oriented to person, place, and time. Psychiatric: Mood and Affect: Mood normal. Judgment: Judgment normal. Sternal incision: wound vac in place Impression & Plan 69 year old male status post mechanical aortic root replacement on 06/14/25. -hold home plavix, plan to remove tomorrow after chest tubes removed -start beta jade -start warfarin 4mg today, daily INR -okay for DVT prophylaxis -continue chest tubes and pacing wires -OOB/mobilize -PT/OT -continue ICU for complex medical management [1] acetaminophen, 650 mg, Oral, q4h DEMETRIUS docusate sodium, 100 mg, Oral, BID insulin lispro, 0-5 Units, Subcutaneous, TID with meals insulin lispro, 0-3 Units, Subcutaneous, Twice at night melatonin, 9 mg, Oral, Nightly methocarbamol, 500 mg, Oral, TID mupirocin, 1 Application, Each Nostril, BID senna, 17.2 mg, Oral, Nightly sodium chloride, 10 mL, Intravenous, q12h [2] clevidipine, 2 mg/hr, Last Rate: 2 mg/hr (06/15/25 0600) EPINEPHrine, 0-0.2 mcg/kg/min, Last Rate: Stopped (06/14/25 1845) * Assessment & Plan Note - Andres Narvaez MD - 06/15/2025 12:23 AM EDTAssociated Problem(s): Other secondary hypertension -Monitor per protocol. -SBP<120 in initial post-op period -clevidipine * Assessment & Plan Note - Andres Narvaez MD - 06/15/2025 12:23 AM EDTAssociated Problem(s): Diabetes (Deleted) -Monitor per protocol. * Assessment & Plan Note - Andres Narvaez MD - 06/15/2025 12:23 AM EDTAssociated Problem(s): Hypertension -Monitor per protocol. - restart home meds as appropriate * Assessment & Plan Note - Andres Narvaez MD - 06/15/2025 12:23 AM EDTAssociated Problem(s): CAD (coronary artery disease) -Monitor per protocol. * Assessment & Plan Note - Andres Narvaez MD - 06/15/2025 12:23 AM EDTAssociated Problem(s): History of coronary angioplasty with insertion of stent -Monitor per protocol. * Assessment & Plan Note - Andres Narvaez MD - 06/15/2025 12:23 AM EDTAssociated Problem(s): Ascending aortic aneurysm (CMS/HCC) (Resolved 06/20/2025) -Monitor per protocol. * Assessment & Plan Note - Barbara Sosa PA - 06/15/2025 12:23 AM EDT Associated Problem(s): Aortic valve regurgitation (Resolved 06/20/2025) >>ASSESSMENT AND PLAN FOR AORTIC VALVE REGURGITATION WRITTEN ON 06/15/2025 12:23 AM BY ANDRES NARVAEZ MD - s/p AVR 06/14 - Monitor per protocol. >>ASSESSMENT AND PLAN FOR SEVERE AORTIC REGURGITATION WRITTEN ON 06/15/2025 12:23 AM BY ANDRES NARVAEZ MD - s/p Aortic Valve Replacement 06/14 - asa/statin/BB when able - wean pressors/inotropes as able - monitor CT output - Monitor per protocol. * Assessment & Plan Note - Andres Narvaez MD - 06/15/2025 12:23 AM EDTAssociated Problem(s): Benign prostatic hyperplasia -Monitor per protocol. * Assessment & Plan Note - Andres Narvaez MD - 06/15/2025 12:23 AM EDTAssociated Problem(s): Weaning from mechanically assisted ventilation initiated ([facility]) ([id number]/20/2025) Arrived intubated and sedated post-op - fast track extubation as able * Assessment & Plan Note - Andres Narvaez MD - 06/15/2025 12:23 AM EDTAssociated Problem(s): Severe aortic regurgitation (Deleted) - s/p Aortic Valve Replacement 06/14 - asa/statin/BB when able - wean pressors/inotropes as able - monitor CT output - Monitor per protocol. * Assessment & Plan Note - Andres Narvaez MD - 06/15/2025 12:23 AM EDTAssociated Problem(s): BMI 30.0-30.9,adult (Resolved 06/20/2025) - complicates all aspects of care -Monitor per protocol. * Assessment & Plan Note - Andres Narvaez MD - 06/15/2025 12:23 AM EDTAssociated Problem(s): High cholesterol - statin as appropriate -Monitor per protocol. * Progress Notes - Andres Narvaez MD - 06/15/2025 12:21 AM EDTAssociated Order(s): Critical Care Post-Procedure Diagnose(s): Other secondary hypertension Critical Care Performed by: Andres Narvaez MD Authorized by: Andres Narvaez MD Critical care provider statement: Critical care time (minutes): 66 Critical care time was exclusive of: Separately billable procedures and treating other patients andteaching time Critical care was time spent personally by me on the following activities: Development of treatmentplan with patient or surrogate, ordering and performing treatments and interventions, ordering and review of laboratory studies, ordering and review of radiographic studies, evaluation of patient's response to treatment, examination of patient and obtaining history from patient or surrogate I assumed subsequent critical care for this patient from a provider in my division, on the same day: yes 06/15/25 Bradley Forrest HPI Bradley Forrest is a 69 y.o. male who presents with Severe aortic regurgitation s/p Procedure(s) and Anesthesia Type: * Aortic valve replacement - General. If applicable, patient is 1 Day Post-Op. Past 24 hours: Bradley Forrest is a 69 yo male with PMHx of AR, ascending aortic aneurysm (4.3cm), CAD s/p 2 stents 03/2025, HTN, HLD, T2DM (A1c 5.7), and GERD who was seen outpaitent after noted to have a murmur. A CT chest and TTE which showed a 4.1 cm aneurysm and a mild degree of aortic insufficiency. A cardiac MRI later revealed severe AR. He presents today for an aortic root replacement with Dr. Clark. Intraoperative course was uneventful. Airway was grade 1. Patient received 5mg versed 1000mcg fentanyl for sedation. Patient received 800 crystalloid intraoperatively. Patient received no blood products, 400 cell saver intraoperatively. UOP was 1.3L. Patient required Clevidipine for BP support when coming off CPB. Total time on pump was 2-hours and 50-minutes. Post-operative SULTANA displayed: Mildlydilated LV with no LVH. Mildly impaired LV systolic function with a LVEF 50%. Last dose of Shola was at 1200. Patient received a parasternal block for analgesia prior to leaving the OR. [facility] services were consulted for management of this patient in the acute postoperative period. Patient arrived to ICU sedated on Dexmedetomidine. Patient is currently not requiring vasopressors for MAP support, arrived to the ICU on Clevidipine drip, 7mg. Pacemaker is set to VVI with rate 40. Intrinsic rate in the OR was 60bpm. PM: Cleviprex gtt, epi off, on RA, consider diet advance in AM, + Nausea, pacer inappropriate firing, adjusted sensitivity, intrinsic rhythm 76, pacer DC'd AM: Still intubated on Dex 1.4 and on Epi .03, pressure support 04/05 Edited by: Balta Washington, [employer], DNP at 06/14/2025 2253 Lines/Drains/Tubes: Patient Lines/Drains/Airways Status Active Active LDAs Name Placement date Placement time Site Days CVC Double Lumen 06/14/25 Right Internal jugular 06/14/25 0832 Internal jugular less than 1 Peripheral IV 06/14/25 Posterior;Right Hand 06/14/25 0620 Hand less than 1 Chest Tube Mediastinal 36 Fr 06/14/25 1327 Mediastinal less than 1 Urethral Catheter Temperature probe 16 Fr. 06/14/25 0822 -- less than 1 Arterial Line 06/14/25 Brachial 06/14/25 0808 Brachial less than 1 Pulmonary Artery Catheter 06/14/25 Internal jugular Right 06/14/25 0832 Internal jugular less than 1 Vital signs reviewed. Labs reviewed. Radiography reviewed. Medications reviewed. Vital signs: Vitals: 06/15/25 0000 BP: 109/56 Pulse: 76 Resp: 19 Temp: SpO2: 92% Intake/Output Summary (Last 24 hours) at 06/15/2025 0021 Last data filed at 06/15/2025 0000 Gross per 24 hour Intake 1155.2 ml Output 2092 ml Net -936.8 ml Assessment and Plan: This patient is critically ill. Assessment & Plan Severe aortic regurgitation Present on Admission: Unknown - s/p Aortic Valve Replacement 06/14 - asa/statin/BB when able - wean pressors/inotropes as able - monitor CT output - Monitor per protocol. BMI 30.0-30.9,adult Present on Admission: Not Applicable - complicates all aspects of care -Monitor per protocol. High cholesterol Present on Admission: Yes - statin as appropriate -Monitor per protocol. Diabetes Present on Admission: Yes -Monitor per protocol. Hypertension Present on Admission: Yes -Monitor per protocol. - restart home meds as appropriate CAD (coronary artery disease) Present on Admission: Yes -Monitor per protocol. History of coronary angioplasty with insertion of stent Present on Admission: Not Applicable -Monitor per protocol. Ascending aortic aneurysm (CMS/HCC) Present on Admission: Yes -Monitor per protocol. Aortic valve regurgitation Present on Admission: Yes - s/p AVR 06/14 - Monitor per protocol. Benign prostatic hyperplasia Present on Admission: Yes -Monitor per protocol. Weaning from mechanically assisted ventilation initiated (CMS/HCC) Present on Admission: Not Applicable Arrived intubated and sedated post-op - fast track extubation as able Other secondary hypertension Present on Admission: No -Monitor per protocol. -SBP<120 in initial post-op period -shar Narvaez MD * Care Plan - Svetlana Reilly RN - 06/14/2025 10:01 PM EDT Problem: Adult Inpatient Plan of Care Goal: Plan of Care Review Outcome: Ongoing, Progressing Flowsheets (Taken 06/14/20252154) Progress: improving Outcome Evaluation: care plan reviewed with patient and family Plan of Care Reviewed With: patient family Goal: Patient-Specific Goal (Individualized) Outcome: Ongoing, Progressing Flowsheets (Taken 06/14/20252152) Patient/Family-Specific Goals (Include Timeframe): patient will remain at a tolerable pain level asstated by the patient (0-3) throughout the entire shift Individualized Care Needs: pain and comfort Anxieties, Fears or Concerns: pain control Goal: Absence of Hospital-Acquired Illness or Injury Outcome: Ongoing, Progressing Intervention: Identify and Manage Fall Risk Flowsheets (Taken 06/14/20252154) Safety Promotion/Fall Prevention: activity supervised clutter-free environment maintained fall prevention program maintained room organization consistent nonskid shoes/slippers when out of bed mobility aid in reach lighting adjusted safety round/check completed toileting scheduled Intervention: Prevent Skin Injury Flowsheets (Taken 06/14/20252154) Body Position: left turned Skin Protection: incontinence pads utilized protective footwear used pulse oximeter probe site changed transparent dressing maintained Intervention: Prevent and Manage VTE (Venous Thromboembolism) Risk Flowsheets (Taken 06/14/20251999) VTE Prevention/Management: bilateral SCDs (sequential compression devices) on Intervention: Prevent Infection Flowsheets (Taken 06/14/20252154) Infection Prevention: environmental surveillance performed equipment surfaces disinfected hand hygiene promoted single patient room provided rest/sleep promoted personal protective equipment utilized Goal: Optimal Comfort and Wellbeing Outcome: Ongoing, Progressing Intervention: Monitor Pain and Promote Comfort Flowsheets (Taken 06/14/20252154) Pain Management Interventions: medication (see MAR) care clustered breathing exercises pillow support provided position adjusted relaxation techniques promoted rest Intervention: Provide Person-Centered Care Flowsheets (Taken 06/14/20252154) Trust Relationship/Rapport: care explained choices provided emotional support provided empathic listening provided questions answered thoughts/feelings acknowledged reassurance provided questions encouraged Problem: Infection Goal: Absence of Infection Signs and Symptoms Outcome: Ongoing, Progressing Intervention: Prevent or Manage Infection Flowsheets Taken 06/14/20252154 by Svetlana Reilly RN Fever Reduction/Comfort Measures: lightweight clothing lightweight bedding Isolation Precautions: precautions maintained protective Taken 06/14/20251717 by Agueda Wolf RN Infection Management: aseptic technique maintained Problem: Cardiovascular Surgery Goal: Improved Activity Tolerance Outcome: Ongoing, Progressing Intervention: Optimize Tolerance for Activity Flowsheets (Taken 06/14/20252154) Environmental Support: calm environment promoted rest periods encouraged environmental consistency promoted personal routine supported Self-Care Promotion: independence encouraged Goal: Optimal Coping with Heart Surgery Outcome: Ongoing, Progressing Intervention: Support Psychosocial Response to Surgery Flowsheets (Taken 06/14/20252154) Supportive Measures: decision-making supported goal-setting facilitated relaxation techniques promoted self-care encouraged verbalization of feelings encouraged Family/Support System Care: presence promoted self-care encouraged support provided Goal: Absence of Bleeding Outcome: Ongoing, Progressing Intervention: Monitor and Manage Bleeding Flowsheets (Taken 06/14/20252154) Bleeding Management: dressing monitored Goal: Effective Bowel Elimination Outcome: Ongoing, Progressing Intervention: Enhance Bowel Motility and Elimination Flowsheets (Taken 06/14/20252154) Bowel Elimination Management: hygiene measures promoted Bowel Motility Enhancement: oral intake encouraged Goal: Effective Cardiac Function Outcome: Ongoing, Progressing Intervention: Optimize Cardiac Output and Blood Flow Flowsheets (Taken 06/14/20252154) Stabilization Measures: legs elevated verbal stimulation provided Dysrhythmia Management: pacing wires maintained Goal: Optimal Cerebral Tissue Perfusion Outcome: Ongoing, Progressing Intervention: Protect and Optimize Cerebral Perfusion Flowsheets Taken 06/14/20252154 Glycemic Management: blood glucose monitored Fever Reduction/Comfort Measures: lightweight clothing lightweight bedding Sensory Stimulation Regulation: quiet environment promoted visual stimulation minimized auditory stimulation minimized care clustered lighting decreased Cerebral Perfusion Promotion: blood pressure monitored normothermia promoted Taken 06/14/20251999 Head of Bed (HOB) Positioning: HOB elevated Goal: Fluid and Electrolyte Balance Outcome: Ongoing, Progressing Intervention: Monitor and Manage Fluid and Electrolyte Balance Flowsheets (Taken 06/14/20252154) Fluid/Electrolyte Management: fluids adjusted Goal: Blood Glucose Level Within Target Range Outcome: Ongoing, Progressing Intervention: Optimize Glycemic Control Flowsheets (Taken 06/14/20252154) Glycemic Management: blood glucose monitored Goal: Absence of Infection Signs and Symptoms Outcome: Ongoing, Progressing Intervention: Prevent or Manage Infection Flowsheets (Taken 06/14/20252154) Fever Reduction/Comfort Measures: lightweight clothing lightweight bedding Infection Prevention: environmental surveillance performed equipment surfaces disinfected hand hygiene promoted single patient room provided rest/sleep promoted personal protective equipment utilized Goal: Anesthesia/Sedation Recovery Outcome: Ongoing, Progressing Intervention: Optimize Anesthesia Recovery Flowsheets Taken 06/14/20252154 Stabilization Measures: legs elevated verbal stimulation provided Safety Promotion/Fall Prevention: activity supervised clutter-free environment maintained fall prevention program maintained room organization consistent nonskid shoes/slippers when out of bed mobility aid in reach lighting adjusted safety round/check completed toileting scheduled Reorientation Measures: clock in view Taken 06/14/20251999 Patient Tolerance (IS): good Administration (IS): instruction provided, initial proper technique demonstrated Level Incentive Spirometer (mL): 1000 Incentive Spirometer Predicted Level (mL): 1500 Number of Repetitions (IS): 5 Goal: Acceptable Pain Control Outcome: Ongoing, Progressing Intervention: Prevent or Manage Pain Flowsheets (Taken 06/14/20252154) Pain Management Interventions: medication (see MAR) care clustered breathing exercises pillow support provided position adjusted relaxation techniques promoted rest Complementary Therapy: essential oils utilized Diversional Activities: television Goal: Nausea and Vomiting Relief Outcome: Ongoing, Progressing Intervention: Prevent or Manage Nausea and Vomiting Flowsheets (Taken 06/14/20252154) Nausea/Vomiting Interventions: stimuli minimized slow deep breathing encouraged nausea triggers minimized Goal: Effective Urinary Elimination Outcome: Ongoing, Progressing Intervention: Monitor and Manage Urinary Retention Flowsheets (Taken 06/14/20252154) Urinary Elimination Promotion: catheter patency maintained Goal: Effective Oxygenation and Ventilation Outcome: Ongoing, Progressing Intervention: Promote Airway Secretion Clearance Flowsheets Taken 06/14/20252154 Airway/Ventilation Management: airway patency maintained oxygen therapy provided position adjusted Taken 06/14/20251999 Patient Tolerance (IS): good Administration (IS): instruction provided, initial proper technique demonstrated Level Incentive Spirometer (mL): 1000 Incentive Spirometer Predicted Level (mL): 1500 Number of Repetitions (IS): 5 Cough And Deep Breathing: done with encouragement Intervention: Optimize Oxygenation and Ventilation Flowsheets (Taken 06/14/20252154) Chest Tube Safety: all connections secured Problem: Fall Injury Risk Goal: Absence of Fall and Fall-Related Injury Outcome: Ongoing, Progressing Intervention: Identify and Manage Contributors Flowsheets (Taken 06/14/20252154) Medication Review/Management: medications reviewed Self-Care Promotion: independence encouraged Intervention: Promote Injury-Free Environment Flowsheets (Taken 06/14/20252154) Safety Promotion/Fall Prevention: activity supervised clutter-free environment maintained fall prevention program maintained room organization consistent nonskid shoes/slippers when out of bed mobility aid in reach lighting adjusted safety round/check completed toileting scheduled Problem: Pain Acute Goal: Optimal Pain Control and Function Outcome: Ongoing, Progressing Intervention: Optimize Psychosocial Wellbeing Flowsheets (Taken 06/14/20252154) Supportive Measures: decision-making supported goal-setting facilitated relaxation techniques promoted self-care encouraged verbalization of feelings encouraged Diversional Activities: television Spiritual Activities Assistance: hope instilled Intervention: Develop Pain Management Plan Flowsheets (Taken 06/14/20252154) Pain Management Interventions: medication (see MAR) care clustered breathing exercises pillow support provided position adjusted relaxation techniques promoted rest Intervention: Prevent or Manage Pain Flowsheets (Taken 06/14/20252154) Sensory Stimulation Regulation: quiet environment promoted visual stimulation minimized auditory stimulation minimized care clustered lighting decreased Complementary Therapy: essential oils utilized Bowel Elimination Promotion: privacy promoted Sleep/Rest Enhancement: awakenings minimized natural light exposure provided relaxation techniques promoted room darkened family presence promoted regular sleep/rest pattern promoted Medication Review/Management: medications reviewed Problem: Mobility Impairment Goal: Optimal Mobility Outcome: Ongoing, Progressing Intervention: Optimize Mobility Flowsheets Taken 06/14/20252154 Positioning/Transfer Devices: wedge pillows repositioning sheet Taken 06/14/20251999 Activity Management: bedrest Problem: Self-Care Deficit Goal: Improved Ability to Complete Activities of Daily Living Outcome: Ongoing, Progressing Intervention: Promote Activity and Functional [place] Flowsheets (Taken 06/14/20252154) Activity Assistance Provided: assistance, 2 people Self-Care Promotion: independence encouraged Problem: Wound Goal: Optimal Coping Outcome: Ongoing, Progressing Intervention: Support Patient and Family Response Flowsheets (Taken 06/14/20252154) Supportive Measures: decision-making supported goal-setting facilitated relaxation techniques promoted self-care encouraged verbalization of feelings encouraged Family/Support System Care: presence promoted self-care encouraged support provided Goal: Optimal Functional Ability Outcome: Ongoing, Progressing Intervention: Optimize Functional Ability Flowsheets Taken 06/14/20252154 Activity Assistance Provided: assistance, 2 people Taken 06/14/20251999 Activity Management: bedrest Goal: Absence of Infection Signs and Symptoms Outcome: Ongoing, Progressing Intervention: Prevent or Manage Infection Flowsheets Taken 06/14/20252154 by Svetlana Reilly RN Fever Reduction/Comfort Measures: lightweight clothing lightweight bedding Isolation Precautions: precautions maintained protective Taken 06/14/20251717 by Agueda Wolf RN Infection Management: aseptic technique maintained Goal: Improved Oral Intake Outcome: Ongoing, Progressing Intervention: Promote and Optimize Oral Intake Flowsheets (Taken 06/14/20252154) Oral Nutrition Promotion: rest periods promoted Nutrition Interventions: diet adjusted Goal: Optimal Pain Control and Function Outcome: Ongoing, Progressing Intervention: Prevent or Manage Pain Flowsheets (Taken 06/14/20252154) Pain Management Interventions: medication (see MAR) care clustered breathing exercises pillow support provided position adjusted relaxation techniques promoted rest Complementary Therapy: essential oils utilized Sleep/Rest Enhancement: awakenings minimized natural light exposure provided relaxation techniques promoted room darkened family presence promoted regular sleep/rest pattern promoted Goal: Skin Health and Integrity Outcome: Ongoing, Progressing Intervention: Optimize Skin Protection Flowsheets Taken 06/14/20252154 Pressure Reduction Techniques: heels elevated off bed pressure points protected weight shift assistance provided Pressure Reduction Devices: positioning supports utilized Skin Protection: protective dressing applied pressure points protected protective footwear used tubing/devices free from skin contact weight shift assistance provided Taken 06/14/20251999 Activity Management: bedrest Head of Bed (HOB) Positioning: HOB elevated Goal: Optimal Wound Healing Outcome: Ongoing, Progressing Intervention: Promote Wound Healing Flowsheets (Taken 06/14/20252154) Sleep/Rest Enhancement: awakenings minimized natural light exposure provided relaxation techniques promoted room darkened family presence promoted regular sleep/rest pattern promoted * Assessment & Plan Note - Belle Smith MD - 06/14/2025 6:01 PM EDT Associated Problem(s): Severe aortic regurgitation (Deleted) - s/p Aortic Valve Replacement 06/14 - asa/statin/BB when able - wean pressors/inotropes as able - monitor CT output - Monitor per protocol. * Assessment & Plan Note - Belle Smith MD - 06/14/2025 6:01 PM EDT Associated Problem(s): BMI 30.0-30.9,adult (Resolved 06/20/2025) - complicates all aspects of care -Monitor per protocol. * Assessment & Plan Note - Belle Smith MD - 06/14/2025 6:01 PM EDT Associated Problem(s): High cholesterol - statin as appropriate -Monitor per protocol. * Assessment & Plan Note - Belle Smith MD - 06/14/2025 6:01 PM EDT Associated Problem(s): Diabetes (Deleted) -Monitor per protocol. * Assessment & Plan Note - Belle Smith MD - 06/14/2025 6:01 PM EDT Associated Problem(s): Hypertension -Monitor per protocol. - restart home meds as appropriate * Assessment & Plan Note - Belle Smith MD - 06/14/2025 6:01 PM EDT Associated Problem(s): CAD (coronary artery disease) -Monitor per protocol. * Assessment & Plan Note - Belle Smith MD - 06/14/2025 6:01 PM EDT Associated Problem(s): History of coronary angioplasty with insertion of stent -Monitor per protocol. * Assessment & Plan Note - Belle Smith MD - 06/14/2025 6:01 PM EDT Associated Problem(s): Ascending aortic aneurysm (CMS/HCC) (Resolved 06/20/2025) -Monitor per protocol. * Assessment & Plan Note - Barbara Sosa PA - 06/14/2025 6:01 PM EDT Associated Problem(s): Aortic valve regurgitation (Resolved 06/20/2025) >>ASSESSMENT AND PLAN FOR AORTIC VALVE REGURGITATION WRITTEN ON 06/15/2025 1:41 PM BY BELLE SMITH MD - s/p AVR 06/14 - Monitor per protocol. >>ASSESSMENT AND PLAN FOR SEVERE AORTIC REGURGITATION WRITTEN ON 06/15/2025 1:41 PM BY BELLE SMITH MD - s/p Aortic Valve Replacement 06/14 - asa/statin/BB when able - wean pressors/inotropes as able - monitor CT output - Monitor per protocol. * Assessment & Plan Note - Belle Smith MD - 06/14/2025 6:01 PM EDT Associated Problem(s): Benign prostatic hyperplasia -Monitor per protocol. * Assessment & Plan Note - Belle Smith MD - 06/14/2025 6:01 PM EDT Associated Problem(s): Weaning from mechanically assisted ventilation initiated ([facility]) (Acpuwosr43/20/2025) Arrived intubated and sedated post-op - fast track extubation as able * H&P - Belle Smith MD - 06/14/2025 5:35 PM EDTAssociated Order(s): Critical Care Post-Procedure Diagnose(s): Other secondary hypertension Critical Care Performed by: Belle mSith MD Authorized by: Belle Smith MD Critical care provider statement: Critical care time (minutes): 39 Critical care time was exclusive of: Separately billable procedures and treating other patients andteaching time Critical care was time spent personally by me on the following activities: Development of treatmentplan with patient or surrogate, ordering and performing treatments and interventions, discussions with consultants, ordering and review of laboratory studies, discussions with primary provider, ordering and review of radiographic studies, evaluation of patient's response to treatment, examination of patient and ventilator management Critical care statement: I saw and evaluated the patient with the resident/ fellow. I discussed thecase with the resident/ fellow and agree with the findings and plan as documented. 06/14/25 Bradley Forrest Consulted for critical care management by Cardiothoracic Surgery. HPI Bradley Forrest is a 69 y.o. male who presents with Severe aortic regurgitation s/p Procedure(s) and Anesthesia Type: * Aortic valve replacement - General with PMHx of AR, ascending aortic aneurysm (4.3cm), CAD s/p 2 stents 03/2025, HTN, HLD, T2DM (A1c 5.7), and GERD who was seen outpaitent after noted to have a murmur. A CT chest and TTE which showed a 4.1 cm aneurysm and a mild degree of aortic insufficiency. A cardiac MRI later revealed severe AR. He presents today for an aortic root replacement with Dr. Clark. Intraoperative course was uneventful. Airway was grade 1. Patient received 5mg versed 1000mcg fentanyl for sedation. Patient received 800 crystalloid intraoperatively. Patient received no blood products, 400 cell saver intraoperatively. UOP was 1.3L. Patient required Clevidipine for BP support when coming off CPB. Total time on pump was 2-hours and 50-minutes. Post-operative SULTANA displayed: Mildlydilated LV with no LVH. Mildly impaired LV systolic function with a LVEF 50%. Last dose of Shola was at 1200. Patient received a parasternal block for analgesia prior to leaving the OR. [facility] services were consulted for management of this patient in the acute postoperative period. Patient arrived to ICU sedated on Dexmedetomidine. Patient is currently not requiring vasopressors for MAP support, arrived to the ICU on Clevidipine drip, 7mg. Pacemaker is set to VVI with rate 40. Intrinsic rate in the OR was 60bpm. Patient is * Day of Surgery *. Airway view (if available) was: grade I - full view of glottis Lines/Drains/Tubes: . Active . Name Placement date Placement time Site Days CVC Double Lumen 06/14/25 Right Internal jugular 06/14/25 0832 Internal jugular less than 1 Peripheral IV 06/14/25 Posterior;Right Hand 06/14/25 0620 Hand less than 1 Chest Tube Mediastinal 36 Fr 06/14/25 1327 Mediastinal less than 1 NG/OG Upson Sump Orogastric 18 Fr Center mouth 06/14/25 1409 Center mouth less than 1 Urethral Catheter Temperature probe 16 Fr. 06/14/25 0822 -- less than 1 Arterial Line 06/14/25 Brachial 06/14/25 0808 Brachial less than 1 Pulmonary Artery Catheter 06/14/25 Internal jugular Right 06/14/25 0832 Internal jugular less than 1 Last antibiotic: Patient recently received an antibiotic (last 12 hours) Date/Time Action Medication Dose Rate 06/14/25 1522 Given ceFAZolin (Ancef) injection 2 g 2 g 06/14/25 1241 Given ceFAZolin (Ancef) injection 2 g 2 g 06/14/25 0847 Given ceFAZolin (Ancef) injection 2 g 2 g 06/14/25 0755 Given vancomycin (Vancocin) vial for injection 1 g 06/14/25 0636 New Bag vancomycin in NS (Vancocin) IVPB 1,250 mg 1,250 mg 200 mL/hr Per the patient questionnaire: Patient answers are not available for this visit. Past Medical History: Past Medical History[1] Past Surgical History: Surgical History[2] Home Medications: Medications Ordered Prior to Encounter[3] Social History: Social History[4] Reviewed and otherwise non-contributory. Family History: Family History[5] Reviewed and otherwise non-contributory. Allergies: Allergies[6] GCS: [place] Coma Scale Score: 15 Review of Systems 14 point ROS reviewed and otherwise negative or unobtainable except as noted above or in HPI. Vital signs: Vitals: 06/14/25 1600 BP: Pulse: 63 Resp: 18 Temp: SpO2: 100% Intake/Output Summary (Last 24 hours) at 06/14/2025 1735 Last data filed at 06/14/2025 1600 Gross per 24 hour Intake 979.17 ml Output 1690 ml Net -710.83 ml Physical Exam: Sedation was held for the purposes of examination. Physical Exam Constitutional: General: He is not in acute distress. HENT: Head: Normocephalic and atraumatic. Mouth/Throat: Mouth: Mucous membranes are moist. Cardiovascular: Rate and Rhythm: Normal rate and regular rhythm. Pulses: Normal pulses. Heart sounds: Normal heart sounds. Pulmonary: Effort: Pulmonary effort is normal. No respiratory distress. Breath sounds: Normal breath sounds. Chest: Comments: Midline incision with dressing covering Skin: General: Skin is warm and dry. Coloration: Skin is not jaundiced. Neurological: Mental Status: He is alert. Labs in last 18 hours: CBC WBC 15.83 (H) Hb 13.9; 13.9 Plt 160 Hct 42.6; 42.6 ANC ?? INR 1.3 (H), PTT 29, Anti-Xa ?? BMP Na 140 Cl 108 (H) BUN 14 Glu 134 (H) K 3.8; 3.8 Co2 19 (L) Cr 0.83 Ca 8.3 (L) iCa 4.6 Mg ??, Phos 2.3 (L) Lactate 4.3 (H) LFT AST ?? AlkPhos ?? T Prot ?? ALK ?? Bili ?? Alb ?? D.Bili ?? Imaging as available: === 06/14/25 === XR ABDOMEN 1 VIEW - Narrative - CLINICAL INDICATION: routine TECHNIQUE: XR ABDOMEN 1 VIEW COMPARISON: Chest x-ray 06/14/2025 same time, chest x-ray 06/09/2025. FINDINGS: NG tube tip mid stomach. Moderate diffuse gas and fecal material throughout the visualized nondilated colon. Moderate gas within nondilated small bowel. No pneumatosis or pneumoperitoneum evident. Post median sternotomy. - Impression - NG tube tip mid stomach. Nonobstructive bowel gas pattern. CRITICAL RESULT: No. COMMUNICATION: Per this written report. Drafted by Tima Conteh MD on 06/14/2025 3:30 PM Final report signed by Tima Conteh MD on 06/14/2025 3:32 PM Reviewed and agree with above. Assessment and Plan: This patient is critically ill. Assessment & Plan Severe aortic regurgitation Present on Admission: Unknown - s/p Aortic Valve Replacement 06/14 - asa/statin/BB when able - wean pressors/inotropes as able - monitor CT output - Monitor per protocol. BMI 30.0-30.9,adult Present on Admission: Not Applicable - complicates all aspects of care -Monitor per protocol. High cholesterol Present on Admission: Yes - statin as appropriate -Monitor per protocol. Diabetes Present on Admission: Yes -Monitor per protocol. Hypertension Present on Admission: Yes -Monitor per protocol. - restart home meds as appropriate CAD (coronary artery disease) Present on Admission: Yes -Monitor per protocol. History of coronary angioplasty with insertion of stent Present on Admission: Not Applicable -Monitor per protocol. Ascending aortic aneurysm (CMS/HCC) Present on Admission: Yes -Monitor per protocol. Aortic valve regurgitation Present on Admission: Yes - s/p AVR 06/14 - Monitor per protocol. Benign prostatic hyperplasia Present on Admission: Yes -Monitor per protocol. Weaning from mechanically assisted ventilation initiated (CMS/HCC) Present on Admission: Not Applicable Arrived intubated and sedated post-op - fast track extubation as able Non-Hospital Problems BMI 30.0-30.9,adult High cholesterol Hypertension CAD (coronary artery disease) History of coronary angioplasty with insertion of stent Ascending aortic aneurysm (CMS/HCC) Aortic valve regurgitation Benign prostatic hyperplasia Diabetes Vicente Rutledge DO [1] Past Medical History: Diagnosis Date Cardiac murmur Hyperlipidemia Hypertension [2] Past Surgical History: Procedure Laterality Date COLONOSCOPY CORONARY STENT PLACEMENT KNEE SURGERY Right OTHER SURGICAL HISTORY N/A Knee arthroscopy from [email or web address] SHOULDER SURGERY Right [3] No current facility-administered medications on file prior to encounter. Current Outpatient Medications on File Prior to Encounter Medication Sig Dispense Refill acetaminophen (Tylenol) 325 MG tablet Take 2 tablets by mouth every morning. Under [place] law, monthly prescriptions (30 days) can be refilled at 25 days and three-month prescriptions (90 days) at 80 days. Please contact the insurance company with questions if refills are denied. (Patient taking differently: Take 2 tablets by mouth every 4 hours as needed. Under [place] law, monthly prescriptions (30 days) can be refilled at 25 days and three-month prescriptions (90 days) at 80 days. Please contact the insurance company with questions if refills are denied.) ASPIRIN 81 MG chewable tablet Chew 1 tablet daily. atenolol (Tenormin) 25 MG tablet Take 1 tablet by mouth daily. (Patient taking differently: Take 1 tablet by mouth 2 times a day. Takes bid) ibuprofen 200 MG tablet Take 1 tablet by mouth daily. clopidogrel (Plavix) 75 MG tablet Take 1 tablet by mouth daily. empagliflozin (Jardiance) 10 MG Take 1 tablet by mouth daily. ezetimibe (Zetia) 10 MG tablet Take 1 tablet by mouth daily. losartan (Cozaar) 50 MG tablet Take 1 tablet by mouth daily. Repatha SureClick 140 MG/ML solution auto-injector autoinjector Inject 1 mL under the skin every 14days. (Patient not taking: Reported on 06/09/2025) rosuvastatin (Crestor) 40 MG tablet Take 1 tablet by mouth daily. spironolactone (Aldactone) 25 MG tablet Take 1 tablet by mouth daily. [4] Social History Socioeconomic History Marital status: Tobacco Use Smoking status: Never Smokeless tobacco: Never Vaping Use Vaping status: Never Used Substance and Sexual Activity Alcohol use: Not Currently Comment: rarely Drug use: Never Sexual activity: Defer [5] Family History Problem Relation Name Age of Onset Diabetes type I Mother Coronary artery disease Father Hypertension Father Breast cancer Sister Skin cancer Maternal Grandmother Hypertension Other Anesthesia problems Neg Hx Malig Hyperthermia Neg Hx [6] Allergies Allergen Reactions Seafood Hives Lisinopril Cough * Care Plan - Agueda Wolf RN - 06/14/2025 5:20 PM EDT Problem: Adult Inpatient Plan of Care Goal: Plan of Care Review Outcome: Ongoing, Progressing Flowsheets (Taken 06/14/2025 06 by Jimmie Taylor, RN) Plan of Care Reviewed With: patient spouse Goal: Patient-Specific Goal (Individualized) Outcome: Ongoing, Progressing Goal: Absence of Hospital-Acquired Illness or Injury Outcome: Ongoing, Progressing Intervention: Identify and Manage Fall Risk Flowsheets (Taken 06/14/20251717) Safety Promotion/Fall Prevention: activity supervised Intervention: Prevent Skin Injury Flowsheets Taken 06/14/20251717 Skin Protection: pulse oximeter probe site changed Taken 06/14/2025 1600 Body Position: turned Intervention: Prevent and Manage VTE (Venous Thromboembolism) Risk Flowsheets (Taken 06/14/2025 1600) VTE Prevention/Management: medication Intervention: Prevent Infection Flowsheets (Taken 06/14/2025 171) Infection Prevention: other (see comments) Goal: Optimal Comfort and Wellbeing Outcome: Ongoing, Progressing Intervention: Monitor Pain and Promote Comfort Flowsheets (Taken 06/14/20251717) Pain Management Interventions: medication (see MAR) Intervention: Provide Person-Centered Care Flowsheets (Taken 06/14/20251717) Trust Relationship/Rapport: care explained Problem: Infection Goal: Absence of Infection Signs and Symptoms Outcome: Ongoing, Progressing Intervention: Prevent or Manage Infection Flowsheets Taken 06/14/20251717 Infection Management: aseptic technique maintained Fever Reduction/Comfort Measures: lightweight clothing Taken 06/14/2025 1600 Isolation Precautions: precautions maintained * Op Note - Phillip Clark MD - 06/14/2025 8:55 AM EDT Operative Note Median sternotomy, aortic valve replacement using a 25 mm Saint Jose mechanical prosthesis. Date: 06/14/25 Location: [place] Name: Bradley Forrest, : 1955, Diagnoses: Pre-op Diagnosis Severe aortic regurgitation Post-op Diagnosis Severe aortic regurgitation Coronary artery disease due to calcified coronary lesion History of coronary angioplasty with insertion of stent Left ventricular enlargement Procedure(s): Median sternotomy, aortic valve replacement using a 25 mm Saint Jose mechanical prosthesis. Attending Surgeon(s): * Phillip Clark - Primary Survey Rodman(s): * Turner Pablo MD - Fellow Anesthesia: General ASA: IV Blood Administration: Blood Product Administration History None Estimated Blood Loss: 150 mL Drains: Chest Tube Mediastinal 36 Fr (Active) Function -20 cm H2O 06/14/25 1600 Chest Tube Air Leak No 06/14/25 1600 Patency Intervention Tip/tilt 06/14/25 1600 Drainage Description Dark red 06/14/25 1600 NG/OG Upson Sump Orogastric 18 Fr Center mouth (Active) Urethral Catheter Temperature probe 16 Fr. (Active) Implants Type Name Action Serial No. GRAFT PTCH [id number] FELT - [id number] Implanted VALVE ATRIAL 25MM ROTATABL CUF STD PTFE - [id number] - [id number] Implanted [id number] Specimen: Specimens ID Source Frozen? 1 Heart No Description: aortic valve leaflets Findings: The patient's tissue was very delicate. Our initial plan was to perform a full root with coronary implantation. We changed the approach to a conventional mechanical valve without root reconstruction as we felt the full root would lead to a bad outcome. The valve leaflets had an unusual presentation. The non coronary leaflet looked to be overgrown, the right coronary leaflet looked small as did the left coronary leaflet. It looked as if the valve may have been previously infected. The patient's left ventricle was quite large. Indications: Bradley Forrest is an 69 y.o. male who is having surgery for Severe aortic regurgitation. We had seen him for his dilated ascending aorta. He came back for another routine visit and had had stenting of his coronaries. In addition his [facility], [facility], had done an echocardiogram which revealed severe aortic regurgitation. He was sent back to us for an opinion. The patient who is very soft-spoken person, told us that he was having problems with shortness of breath and fatigue. His echo showed a very large left ventricle which confirmed that this had been a long-term issue. We offered him surgical intervention. He elected to have a mechanical valve to help to avoid the risk of repeat surgical intervention. We initially expected to do a root replacement. However read above. Narrative: The patient was taken to the operating room and placed on the table in the supine position. Initialmonitoring lines were placed by our anesthesia colleagues. General endotracheal anesthesia was induced, monitoring lines were placed, a [place]-Shira catheter was floated into position and a transesophageal echo probe was positioned by Anesthesia. The patient was then centered on the operating room table. Pressure points were padded. Patient was then prepped and draped in a sterile manner from chin to ankles, a time-out was called and the patient was identified, the proposed procedure was announcedand confirmed by all in the room. Antibiotics were confirmed to have been administered. A median sternotomy incision was made. Electrocautery was used dissect down to the anterior table of the sternum. The lower part of the manubrium was identified. The fascial plane and mid manubrium was dissected through with electrocautery into a clear space underneath the sternum. The midline was i dentified and she has and deepened to stay in the midline to the xiphoid. Anesthesiologists were asked hold ventilation and the sternum was then divided with an oscillating saw. Ventilations were then resumed. Hemostasis was achieved on the sternal edge with electrocautery. Bone wax was used sparingly to stop the bleeding from the bone marrow. .Wound towels were placed on the sternal edges. The Aesculap retractor was inserted in the sternum spread open. The pericardium was opened and pericardial stay sutures were placed. Full-dose heparin was requested to be administered by our anesthesia colleagues, they verbally confirmed that heparin had been administered. Ascending aorta was palpated and felt to be adequate for cannulation. A pursestring suture was in the ascending aorta and snared with tourniquet. With ACTs above 400 and counting and aortic cannula was inserted into the ascending aorta and controlled with a Jamie tourniquet. The cannula and tourniquet were tied together and the cannula secured to the wound towel and to the arterial inflow tubingsecured by the patient's side. A pursestring suture was placed around the auricle of the right atrium. An incision was made in the auricle and venous cannula placed and positioned with its tip in theinferior vena cava. This was similarly secured with a Rumel tourniquet. A 4-0 horizontal pledgeted m attress suture was placed on the side of the right atrium, he will was made in the tissue and stretched open a retrograde cardioplegia catheter was then gently slid into the coronary sinus and secured with a Jamie tourniquet. in the ascending aorta and antegrade cardioplegia catheter with a side vent was placed and secured with a Jamie tourniquet. ACTs were once again confirmed to be above 400.Cardiopulmonary bypass was then instituted. A pursestring suture was placed in the left pulmonary vein. A left ventricular vent was passed through the pulmonary vein and across the mitral valve into the ventricle. This was secured with a Jamie tourniquet. Systemic cooling was begun. The heart became bradycardic. Cold oxygenated blood retrograde cardioplegia was infused. Ice was placed on the right ventricle. The heart fibrillated. An aortic cross-clamp was placed. 1 L of cold oxygenated blood cardioplegia was infused resulting in asystole. From thispoint forward cardioplegia was administered every 45-60 minutes, retrograde or directly into the coronary left and right main coronary arteries, throughout the entire cross- clamp or as needed for electrical or were mechanical cardiac activity. The aorta was opened using a hockey-stick incision, the leaflets of the aortic valve were inspected. There was no evidence of active infection with the valve leaflets did look malformed. The valve leaflets hooks were then removed. [place] cardioplegia was then infused into the right main coronary artery 150 mL and into the left main coronary artery 250 mL. A 25 mm Saint Jose Sizer was slipped into the aorta and looked like a good fit. 2-0 pledgeted horizontal mattress sutures were placed around the annulus. The valve was brought up onto the operative field and sutures passed through the fabric. The valve was gently lowered into position and the sutures were pulled up taut and tied. A leaflet probe was then used to check the mechanisms of the valve. The leaflets opened and closed without impedance. The ascending aorta was closed with a double layer of 4-0 Prolene using an RB 2 needle. This sutureline was then treated with Prevalon leak. Warm retrograde cardioplegia was infused. We had placed joanne into the ascending aorta the ventricular vent was clamped the ascending aortic vent was aspirated while the heart was being massaged and our anesthesia colleagues were ventilating to knock air out of the pulmonary veins. The patient was then placed in a Trendelenburg position. Temporary ventricular pacing wires were placed. Pump flows were brought down, the aortic crossclamp was removed, pump flows were gently brought back up. The patient was then paced at a VVI of 40 to help ventricle notdilate. The core temperature was around 36?? C. We allowed the heart to reperfusing rewarming for about another 10 minutes and then slowly weaned from cardiopulmonary bypass with the transesophageal echo tracking any air that came through. At this point we had a root vent on to attempt to capture the air bu bbles.(the surgical wound in the chest had been infused with carbon dioxide at 8 L a minute throughout this case). The patient was from cardiopulmonary bypass. He was kept in a Trendelenburg position for about 10 minutes and then slowly placed in a flat position. During this time we began separation from cardiopulmonary bypass. With the course of the about 10 more minutes he was told he frombypass and hemodynamically stable. The left ventricular vent was removed, the aortic root was clamped. Function of the valve was checked with echocardiography. The gradient across the valve was around 4mmHg. There were no perivalvular leaks. Leaflets were seen to freely move. Cannulas were removed and protamine was infused. After about 20 minutes the field bleeding came under nice control. Diligent search was used find any bleeding. The cannulation site was reinforced with 4-0 Prolene and a tack seal. One 36 Thai chest tube was placed. Chest tubes and pacing wires were secured to the anterior abdominal wall. The sternum was reapproximated with #7 [id number] stainless steel wires, the fasciawas closed with a running PDS suture, subcutaneous tissue was closed with running Vicryl suture, skin was reapproximated with a subcuticular stitch of Monocryl. Dressings were applied and the patientwas transferred to intensive care unit bed. He was subsequently transported to our intensive care unit hemodynamically stable. This concludes operative summary Dr. Clark dictating thank you. Complications: None; patient tolerated the procedure well. Submitted by: Phillip Clark MD - 06/14/2025 * H&P - Phillip Clark MD - 06/14/2025 6:21 AM EDT History of present illness: Bradley Forrest is a 69 y.o. male presenting for aortic root reconstruction. History of aortic insufficiency, ascending aortic aneurysm, CAD with recent PCI, hypertension, hyperlipidemia, and obesity. Hewas initially seen in our clinic on 03/10/2025 [...] significant LV dilation with a normal EF. Medical History His chronic comorbid conditions that [...] 2 tablets by mouth every morning. Under [place] law, monthly prescriptions (30 days) can be refilled at 25 days and three-month prescriptions (90 days) at 80 days. Please contact the insurance company with questions if refills are denied. Patient taking differently: Take 2 tablets by mouth every 4 hours as needed. Under [place] law, monthly prescriptions (30 days) can be [...] a day. Takes bid Yes Provider, Historical ibuprofen 200 MG tablet Take 1 tablet by mouth daily. Yes Provider, Historical clopidogrel (Plavix) 75 MG tablet Take 1 tablet by mouth daily. 03/23/25 Provider, Historical empagliflozin (Jardiance) 10 MG Take 1 tablet by mouth daily. Provider, Historical ezetimibe (Zetia) 10 MG tablet Take 1 tablet by mouth daily. Provider, Historical losartan (Cozaar) 50 MG tablet Take 1 tablet by mouth daily. Provider, Historical Repatha SureClick 140 MG/ML solution auto-injector autoinjector Inject 1 mL under the skin every 14days. Patient not taking: Reported on 06/09/2025 02/26/25 Provider, Historical rosuvastatin (Crestor) 40 MG tablet Take 1 tablet by mouth daily. Provider, Historical spironolactone (Aldactone) 25 MG tablet Take 1 tablet by mouth daily. Provider, Historical Physical exam: Visit Vitals BP (!) 154/52 (BP Location: Left arm, Patient Position: Sitting) Pulse 63 Temp 36.8 ??C (98.2 ??F) (Oral) SpO2 100% Labs in last 18 hours: CBC WBC ?? Hb ?? Plt ?? Hct ?? ANC ?? INR 1.3 (H), PTT 29, Anti-Xa ?? BMP Na 140 Cl 108 (H) BUN 14 Glu 134 (H) K 3.8; 3.8 Co2 19 (L) Cr 0.83 Ca 8.3 (L) iCa 4.6 Mg ??, Phos 2.3 (L) Lactate 4.3 (H) LFT AST ?? AlkPhos ?? T Prot ?? ALK ?? Bili ?? Alb ?? D.Bili ?? Results from last 7 days Lab Units 06/09/25 1339 HEMOGLOBIN A1C % 5.7* Impression: Bradley Forrest is a 69 y.o. male presenting for aortic root reconstruction. Plan: -consent in media tab -prefers mechanical valve -last dose of atenolol this AM -last dose plavix 06/09 [1] Past Medical History: Diagnosis Date Cardiac [...] Description 07/07/2025 1:40 PM EST Clinical Support [facility] [address] [place] [address] 07/07/2025 2:40 PM EST Office Visit [facility] [address], [address] [place] [address] Phillip Clark MD [address] [place] [address] Pending Results Name Type Priority Associated Diagnoses Date /Time Prepare Leukocyte Reduced RBC: 4 Units Blood Bank Routine 06/14/2025 6:12 AM EDT Prepare Fresh Frozen Plasma: 2 Units Blood Bank STAT 06/14/2025 12:09 PM EDT Prepare Leukocyte Reduced Platelets: 1 Units Blood Bank STAT 06/14/2025 12:09 PM EDT ECG Adult ECG STAT 06/17/2025 8:0 5 PM EDT Scheduled Referrals Name Type Priority Associated Diagnoses Order Schedule Discharge Ambulatory referral to Cardiac Rehab Outpatient Referral Routine S/P AVR 1 Occurrences starting 06/20/2025 until 06/20/2026 documented as of this encounter Procedures Procedure Name Priority Date/Time Associated Diagnosis Comments XR CHEST 2 VIEWS Routine 06/20/2025 9:14 AM EDT PROTHROMBIN TIME(PT) / INR Routine 06/20/2025 1:52 AM EDT CBC W/O DIFFERENTIAL Routine 06/20/2025 1:52 AM EDT PHOSPHORUS, PLASMA Routine 06/20/2025 1: 52 AM EDT MAGNESIUM, PLASMA Routine 06/20/2025 1:5 2 AM EDT BASIC METABOLIC PANEL, PLASMA Add-On 06/20/2025 1:52 AM EDT INSERT PERIPHERAL IV Routine 06/20/2025 1:47 AM EDT ECG ADULT Routine 06/19/2025 12:49 PM EDT PROTHROMBIN TIME(PT) / INR Routine 06/19/2025 2:38 AM EDT CBC W/O DIFFERENTIAL Routine 06/19/2025 2:38 AM EDT PHOSPHORUS, PLASMA Routine 06/19/2025 2: 38 AM EDT MAGNESIUM, PLASMA Routine 06/19/2025 2:3 8 AM EDT BASIC METABOLIC PANEL, PLASMA Routine 06/19/2025 2:38 AM EDT XR CHEST 1 VIEW Routine 06/19/2025 1:50 AM EDT XR CHEST 1 VIEW Routine 06/18/2025 3:40 AM EDT PROTHROMBIN TIME(PT) / INR Routine 06/18/2025 1:43 AM EDT CBC W/O DIFFERENTIAL Routine 06/18/2025 1:43 AM EDT PHOSPHORUS, PLASMA Routine 06/18/2025 1: 43 AM EDT MAGNESIUM, PLASMA Routine 06/18/2025 1:4 3 AM EDT BASIC METABOLIC PANEL, PLASMA Routine 06/18/2025 1:43 AM EDT ECG ADULT STAT 06/17/2025 8:05 PM EDT XR CHEST 1 VIEW Routine 06/17/2025 3:14 AM EDT PROTHROMBIN TIME(PT) / INR Routine 06/17/2025 12:17 AM EDT CBC W/O DIFFERENTIAL Routine 06/17/2025 12:17 AM EDT PHOSPHORUS, PLASMA Routine 06/17/2025 12 :17 AM EDT MAGNESIUM, PLASMA Routine 06/17/2025 12: 17 AM EDT BASIC METABOLIC PANEL, PLASMA Routine 06/17/2025 12:17 AM EDT MAGNESIUM, PLASMA Routine 06/16/2025 5:3 5 PM EDT RENAL FUNCTION PANEL, PLASMA Routine 06/16/2025 5:35 PM EDT RI CRITICAL CARE, E/M 30-74 MINUTES Routine 06/16/2025 9:58 AM EDT Other secondary hypertension POCT GLUCOSE METER UNSOLICITED RESULTS Routine 06/16/2025 8:40 AM EDT BASIC METABOLIC PANEL, PLASMA Routine 06/16/2025 5:58 AM EDT XR CHEST 1 VIEW Routine 06/16/2025 5:14 AM EDT XR ABDOMEN 1 VIEW STAT 06/16/2025 1:2 0 AM EDT PROTHROMBIN TIME(PT) / INR Routine 06/16/2025 12:36 AM EDT CBC W/O DIFFERENTIAL Routine 06/16/2025 12:36 AM EDT PHOSPHORUS, PLASMA Routine 06/16/2025 12 :36 AM EDT MAGNESIUM, PLASMA Routine 06/16/2025 12: 36 AM EDT BLOOD GAS PANEL, ARTERIAL Routine 06/16/2025 12:36 AM EDT PEP THERAPY Routine 06/16/2025 12:00 AM EDT PEP THERAPY Routine 06/15/2025 8:00 PM EDT POCT GLUCOSE METER UNSOLICITED RESULTS Routine 06/15/2025 8:00 PM EDT POCT GLUCOSE METER UNSOLICITED RESULTS Routine 06/15/2025 5:56 PM EDT PHOSPHORUS, PLASMA Routine 06/15/2025 4: 11 PM EDT MAGNESIUM, PLASMA Add-On 06/15/2025 4:1 1 PM EDT BASIC METABOLIC PANEL, PLASMA Routine 06/15/2025 4:11 PM EDT PEP THERAPY Routine 06/15/2025 4:00 PM EDT POCT GLUCOSE METER UNSOLICITED RESULTS Routine 06/15/2025 12:14 PM EDT PEP THERAPY Routine 06/15/2025 12:00 PM EDT RI CRITICAL CARE, E/M 30-74 MINUTES Routine 06/15/2025 9:19 AM EDT Other secondary hypertension PEP THERAPY Routine 06/15/2025 9:00 AM EDT POCT GLUCOSE METER UNSOLICITED RESULTS Routine 06/15/2025 8:24 AM EDT CBC WITH AUTO DIFFERENTIAL Routine 06/15/2025 8:18 AM EDT PEP THERAPY Routine 06/15/2025 7:20 AM EDT PEP THERAPY Routine 06/15/2025 7:20 AM EDT PEP THERAPY Routine 06/15/2025 7:20 AM EDT PEP THERAPY Routine 06/15/2025 7:20 AM EDT PEP THERAPY Routine 06/15/2025 7:20 AM EDT IONIZED CALCIUM, WHOLE BLOOD Routine 06/15/2025 6:40 AM EDT PROTHROMBIN TIME(PT) / INR Routine 06/15/2025 6:40 AM EDT ECG ADULT Routine 06/15/2025 5:20 AM EDT BLOOD GAS PANEL, ARTERIAL Routine 06/15/2025 3:58 AM EDT XR CHEST 1 VIEW Routine 06/15/2025 2:53 AM EDT RI CRITICAL CARE, ADDL 30 MIN Routine 06/15/2025 12:21 AM EDT Other secondary hypertension RI CRITICAL CARE, ADDL 30 MIN Routine 06/15/2025 12:21 AM EDT Other secondary hypertension WBC DIFFERENTIAL Add-On 06/15/2025 12:2 0 AM EDT CBC W/O DIFFERENTIAL Add-On 06/15/2025 12:20 AM EDT HEMOGLOBIN Timed 06/15/2025 12:20 AM EDT HEMATOCRIT, BLOOD Timed 06/15/2025 12: 20 AM EDT POTASSIUM, PLASMA Timed 06/15/2025 12: 20 AM EDT PHOSPHORUS, PLASMA Add-On 06/15/2025 12 :20 AM EDT MAGNESIUM, PLASMA Add-On 06/15/2025 12: 20 AM EDT BLOOD GAS PANEL, ARTERIAL Timed 06/15/2025 12:20 AM EDT BASIC METABOLIC PANEL, PLASMA Add-On 06/15/2025 12:20 AM EDT BLOOD GAS PANEL, ARTERIAL Timed 06/14/2025 8:04 PM EDT CBC W/O DIFFERENTIAL Timed 06/14/2025 8:03 PM EDT POTASSIUM, PLASMA Routine 06/14/2025 8:0 3 PM EDT MAGNESIUM, PLASMA Routine 06/14/2025 8:0 3 PM EDT BASIC METABOLIC PANEL, PLASMA Timed 06/14/2025 8:03 PM EDT BLOOD GAS PANEL, ARTERIAL Routine 06/14/2025 6:47 PM EDT RI CRITICAL CARE, E/M 30-74 MINUTES Routine 06/14/2025 5:35 PM EDT Other secondary hypertension BLOOD GAS PANEL, ARTERIAL Timed 06/14/2025 3:57 PM EDT EXTUBATION Routine 06/14/2025 3:41 PM EDT BLOOD GAS PANEL WITH OXIMETRY, MIXED VENOUS Routine 06/14/2025 3:00 PM EDT XR CHEST 1 VIEW STAT 06/14/2025 2:57 PM EDT XR ABDOMEN 1 VIEW Routine 06/14/2025 2:5 7 PM EDT VENTILATOR - ADULT Routine 06/14/2025 2: 40 PM EDT MALLIKA AURIS SURVEILLANCE BY PCR Routine 06/14/2025 2:37 PM EDT MULTI DRUG RESISTANCE TEST Routine 06/14/2025 2:37 PM EDT BLOOD GAS PANEL, ARTERIAL STAT 06/14/2025 2:37 PM EDT ECG ADULT STAT 06/14/2025 2:36 PM EDT APTT STAT 06/14/2025 2:36 PM EDT PROTHROMBIN TIME(PT) / INR STAT 06/14/2025 2:36 PM EDT CBC W/O DIFFERENTIAL STAT 06/14/2025 2:36 PM EDT HEMOGLOBIN Timed 06/14/2025 2:36 PM EDT HEMATOCRIT, BLOOD Timed 06/14/2025 2:3 6 PM EDT POTASSIUM, PLASMA Timed 06/14/2025 2:3 6 PM EDT PHOSPHORUS, PLASMA STAT 06/14/2025 2: 36 PM EDT MAGNESIUM, PLASMA STAT 06/14/2025 2:3 6 PM EDT BASIC METABOLIC PANEL, PLASMA STAT 06/14/2025 2:36 PM EDT PEP THERAPY Routine 06/14/2025 2:35 PM EDT PEP THERAPY Routine 06/14/2025 2:35 PM EDT PEP THERAPY Routine 06/14/2025 2:35 PM EDT POCT ARTERIAL BLOOD GAS GEM UNSOLICITED RESULTS Routine 06/14/2025 2:00 PM EDT POCT ARTERIAL BLOOD GAS GEM UNSOLICITED RESULTS Routine 06/14/2025 1:22 PM EDT POCT ARTERIAL BLOOD GAS GEM UNSOLICITED RESULTS Routine 06/14/2025 12:52 PM EDT POCT ACT UNSOLICITED RESULTS Routine 06/14/2025 12:43 PM EDT POCT ARTERIAL BLOOD GAS GEM UNSOLICITED RESULTS Routine 06/14/2025 12:16 PM EDT PREPARE PLATELETS STAT 06/14/2025 12: 09 PM EDT PREPARE FRESH FROZEN PLASMA STAT 06/14/2025 12:09 PM EDT POCT ARTERIAL BLOOD GAS GEM UNSOLICITED RESULTS Routine 06/14/2025 12:06 PM EDT QPLUS Routine 06/14/2025 11:55 AM EDT POCT ACT UNSOLICITED RESULTS Routine 06/14/2025 11:54 AM EDT POCT ARTERIAL BLOOD GAS GEM UNSOLICITED RESULTS Routine 06/14/2025 11:33 AM EDT POCT ACT UNSOLICITED RESULTS Routine 06/14/2025 11:24 AM EDT POCT ARTERIAL BLOOD GAS GEM UNSOLICITED RESULTS Routine 06/14/2025 11:03 AM EDT POCT ACT UNSOLICITED RESULTS Routine 06/14/2025 10:57 AM EDT POCT ARTERIAL BLOOD GAS GEM UNSOLICITED RESULTS Routine 06/14/2025 10:33 AM EDT POCT ACT UNSOLICITED RESULTS Routine 06/14/2025 10:26 AM EDT SURGICAL PATHOLOGY EXAM Routine 06/14/2025 10:18 AM EDT Severe aortic regurgitation POCT ARTERIAL BLOOD GAS GEM UNSOLICITED RESULTS Routine 06/14/2025 10:08 AM EDT POCT ACT UNSOLICITED RESULTS Routine 06/14/2025 10:04 AM EDT POCT ACT UNSOLICITED RESULTS Routine 06/14/2025 8:13 AM EDT POCT ARTERIAL BLOOD GAS GEM UNSOLICITED RESULTS Routine 06/14/2025 8:13 AM EDT RI -AORT GRF W/CARD BYP F/AORTIC DISSECTION 06/14/2025 7:28 AM EDT Severe aortic regurgitation Coronary artery disease due to calcified coronary lesion History of coronary angioplasty with insertion of stent Left ventricular enlargement TYPE AND SCREEN Routine 06/14/2025 6:27 AM EDT POCT GLUCOSE METER UNSOLICITED RESULTS Routine 06/14/2025 6:23 AM EDT PREPARE RBC Routine 06/14/2025 6:12 AM EDT documented in this encounter Results * XR Chest 2 Views (06/20/2025 9:14 AM EDT) Anatomical Region Laterality Modality Chest Computed Radiogr aphy Impressions 06/20/2025 9:42 AM EDT Small bilateral pleural effusions and mild bilateral infrahilar atelectasis. No edema. CRITICAL RESULT: No. COMMUNICATION: Per this written report. Drafted by Idania Edmonds MD on 06/20/2025 9:42 AM Final report signed by Idania Edmonds MD on 06/20/2025 9:42 AM Narrative 06/20/2025 9:42 AM EDT CLINICAL INDICATION: postop cardiac surgery TECHNIQUE: XR CHEST 2 VIEWS COMPARISON: 06/19/2025 FINDINGS: Stable cardiac silhouette. Small bilateral pleural effusions without change. Mild bilateral infrahilar atelectasis. No acute airspace opacities. No pneumothorax. Procedure Note Idania Edmonds MD - 06/20/2025 CLINICAL INDICATION: postop cardiac surgery TECHNIQUE: XR CHEST 2 VIEWS COMPARISON: 06/19/2025 FINDINGS: Stable cardiac silhouette. Small bilateral pleural effusions withoutchange. Mild bilateral infrahilar atelectasis. No acute airspaceopacities. No pneumothorax. IMPRESSION: Small bilateral pleural effusions and mild bilateral infrahilaratelectasis. No edema. CRITICAL RESULT: No. COMMUNICATION: Per this written report. Drafted by Idania Edmonds MD on 06/20/2025 9:42 AM Final report signed by Idania Edmonds MD on 06/20/2025 9:42 AM us Phillip Clark MD IMG XR PROCEDURES Final Resu lt * (ABNORMAL) Basic metabolic panel (06/20/2025 1:52 AM EDT) Glucose, Plasma 107(H) 74 - 99 mg/dL 06/20/2025 2:47 AM EDT [facility] BUN, Plasma 22 8 - 23 mg/dL 06/20/2025 2:47 AM EDT [facility] Creatinine, Plasma 0.85 0.70 - 1.20 mg/dL 06/20/2025 2:47 AM EDT [facility] BUN/Creatinine Ratio 26 06/20/2025 2:47 AM EDT [facility] Sodium, Plasma 131(L) 136 - 145 mmol/L 06/20/2025 2:47 AM EDT [facility] Potassium, Plasma 4.0 3.6 - 4.9 mmol/L 06/20/2025 2:47 AM EDT [facility] Chloride, Plasma 102 97 - 107 mmol/L 06/20/2025 2:47 AM EDT [facility] CO2, Plasma 24 22 - 29 mmol/L 06/20/2025 2:47 AM EDT [facility] Anion Gap 5(L) 6 - 16 mmol/L 06/20/2025 2:47 AM EDT [facility] Total Calcium, Plasma 7.9(L) 8.9 - 10.2 mg/dL 06/20/2025 2:47 AM EDT [facility] eGFRcr 94.1 mL/min/1.7 3m*2 06/20/2025 2:47 AM EDT [facility] Comment:Reported eGFRcr in m L/min/1.73m2 is based the CKD-EPI 2020 equation that does not use a race coefficient. Blood Venous blood specimen / Unknown Venipuncture / Unknown 06/20/2025 1:52 AM EDT 06/20/2025 1:59 AM EDT us Phillip Clark MD LAB BLOOD ORDERABLES Final R esult [facility] [address] [place] [address] * Phosphorus (06/20/2025 1:52 AM EDT) Phosphorus, Plasma 2.8 2.5 - 4.5 mg/dL 06/20/2025 2:23 AM EDT [facility] Blood Venous blood specimen / Unknown Venipuncture / Unknown 06/20/2025 1:52 AM EDT 06/20/2025 1:59 AM EDT Phillip Clark MD LAB BLOOD ORDERABLES Final R esult Performing Organization Address City/[facility]/ZIP Co de Phone Number [facility] [address] [place] [address] * (ABNORMAL) Protime-INR (06/20/2025 1:52 AM EDT) Prothrombin Time 30.4(H) 12.0 - 14.3 sec LAB COAGULATION METHOD 06/20/2025 2:29 AM EDT [facility] INR 2.9(H) 0.9 - 1.1 LAB COAGULATION METHOD 06/20/2025 2:29 AM EDT [facility] Blood Venous blood specimen / Unknown Venipuncture / Unknown 06/20/2025 1:52 AM EDT 06/20/2025 1:59 AM EDT Narrative [facility] - 06/20/2025 2:29 AM EDT OPTIMAL INR RANGES FOR PATIENT ON ORAL ANTICOAGULANT THERAPY Prevention of venous thromboembolism INR 2.0 to 3.0 In patients with heart disease: Atrial fibrillation INR 2.0 to 3.0 Valvular heart disease INR 2.0 to 3.0 Tissue heart valves INR 2.0 to 3.0 Mechanical prosthetic valves INR 2.5 to 3.5 Prevention of recurrent PR INR 2.5 to 3.5 us Phillip Clark MD LAB BLOOD ORDERABLES Final R esult [facility] [address] [place] [address] * Magnesium (06/20/2025 1:52 AM EDT) Magnesium, Plasma 2.2 1.9 - 2.4 mg/dL 06/20/2025 2:23 AM EDT [facility] Blood Venous blood specimen / Unknown Venipuncture / Unknown 06/20/2025 1:52 AM EDT 06/20/2025 1:59 AM EDT us Phillip Clark MD LAB BLOOD ORDERABLES Final R esult [facility] [address] [place] [address] * (ABNORMAL) CBC (06/20/2025 1:52 AM EDT) WBC Count 6.95 3.70 - 10.30 10*3/uL LAB HEMATOLOGY METHOD 06/20/2025 2:07 AM EDT [facility] RBC Count 3.73(L) 4.60 - 6.10 10*6/uL LAB HEMATOLOGY METHOD 06/20/2025 2:07 AM EDT [facility] HGB 10.4(L) 13.7 - 17.5 g/dL LAB HEMATOLOGY METHOD 06/20/2025 2:07 AM EDT [facility] HCT 31.9(L) 40.0 - 51.0 % LAB HEMATOLOGY METHOD 06/20/2025 2:07 AM EDT [facility] Platelet Count 187 155 - 369 10*3/uL LAB HEMATOLOGY METHOD 06/20/2025 2:07 AM EDT [facility] MCV 86 79 - 98 fL LAB HEMATOLOGY METHOD 06/20/2025 2:07 AM EDT [facility] MCH 27.9 26.0 - 32.0 pg LAB HEMATOLOGY METHOD 06/20/2025 2:07 AM EDT [facility] MCHC 32.6 30.7 - 35.5 g/dL LAB HEMATOLOGY METHOD 06/20/2025 2:07 AM EDT [facility] RDW 14.8(H) 11.5 - 14.5 % LAB HEMATOLOGY METHOD 06/20/2025 2:07 AM EDT [facility] MPV 10.2 8.8 - 12.5 fL LAB HEMATOLOGY METHOD 06/20/2025 2:07 AM EDT [facility] nRBC 0.0 <=0.0 per 100 WBCs LAB HEMATOLOGY METHOD 06/20/2025 2:07 AM EDT [facility] Blood Venous blood specimen / Unknown Venipuncture / Unknown 06/20/2025 1:52 AM EDT 06/20/2025 1:59 AM EDT Phillip Clark MD LAB BLOOD ORDERABLES Final R esult [facility] [address] [place] [address] * PERIPHERAL IV (SMARTFORM LINK) (06/20/2025 1:47 AM EDT) Narrative Sterling Molina RN - 06/20/2025 1:47 AM EDT Sterling Molina RN 06/20/2025 1:48 AM Insert peripheral IV Performed by: Sterling Molina RN Authorized by: Phillip Clark MD Hand hygiene: Hand hygiene performed prior to insertion Inserted using aseptic techniques: Yes Preparation: Skin prepped with chg Orientation: Left and upper Location: Arm Catheter placed: Peripheral IV Catheter size: 20g/2.00in Line Technique: Ultrasound Guidance Number of attempts: 1 IV flushes: Without difficulty and positive blood return noted and IV luer locked Patient tolerance: Patient tolerated the procedure well and there were no complications Patient comfort measures used: Distraction and position of comfort IV site covered with: Transparent semipermeable dressing Phillip Clark MD IV THERAPY ORDERABLES Final Result * ECG Adult (06/19/2025 12:49 PM EDT) EKG DIAGNOSIS CLASS Abnormal MUSE ECG Ventricular Rate 85 BPM MUSE ECG Atrial Rate 85 BPM MUSE ECG RI Interval 176 ms MUSE ECG QRSD Interval 110 ms MUSE ECG QT Interval 402 ms MUSE ECG QTC Interval 478 ms MUSE ECG P [place] 43 degrees MUSE ECG R [place] -30 degrees MUSE ECG T Wave [place] 36 degrees MUSE ECG Diagnosis Poor data quality, interpretation may be adversely affected MUSE ECG Diagnosis Sinus rhythm with premature supraventricular complexes and with occasional premature ventricular complexes MUSE ECG Diagnosis Left axis deviation MUSE ECG Diagnosis Poor R-wave progression MUSE ECG Diagnosis Abnormal ECG MUSE ECG Diagnosis Recommend repeat ECG MUSE ECG Diagnosis MUSE ECG Diagnosis Confirmed by Aman Coe ([id number]) on 06/19/2025 1:33:10 PM MUSE ECG 06/19/2025 12:4 9 PM EDT 06/19/2025 1:33 PM EDT us Barbara MARIE ECG ORDERABLES Final Resul t MUSE ECG * (ABNORMAL) Basic metabolic panel (06/19/2025 2:38 AM EDT) Glucose, Plasma 102(H) 74 - 99 mg/dL 06/19/2025 4:10 AM EDT [facility] BUN, Plasma 25(H) 8 - 23 mg/dL 06/19/2025 4:10 AM EDT [facility] Creatinine, Plasma 1.02 0.70 - 1.20 mg/dL 06/19/2025 4:10 AM EDT [facility] BUN/Creatinine Ratio 25 06/19/2025 4:10 AM EDT [facility] Sodium, Plasma 134(L) 136 - 145 mmol/L 06/19/2025 4:10 AM EDT [facility] Potassium, Plasma 4.6 3.6 - 4.9 mmol/L 06/19/2025 4:10 AM EDT [facility] Comment:Hemolyzed - Potassiu m may be falsely elevated by approximately 0.4-0.7 mmol/L. Chloride, Plasma 102 97 - 107 mmol/L 06/19/2025 4:10 AM EDT [facility] CO2, Plasma 23 22 - 29 mmol/L 06/19/2025 4:10 AM EDT [facility] Anion Gap 9 6 - 16 mmol/L 06/19/2025 4:10 AM EDT [facility] Total Calcium, Plasma 8.4(L) 8.9 - 10.2 mg/dL 06/19/2025 4:10 AM EDT [facility] eGFRcr 79.6 mL/min/1.7 3m*2 06/19/2025 4:10 AM EDT [facility] Comment:Reported eGFRcr in m L/min/1.73m2 is based the CKD-EPI 2020 equation that does not use a race coefficient. Blood Venous blood specimen / Unknown Venipuncture / Unknown 06/19/2025 2:38 AM EDT 06/19/2025 2:54 AM EDT us Phillip Clark MD LAB BLOOD ORDERABLES Final R esult Performing Organization Address City/[facility]/ZIP Co de Phone Number [facility] [address] [place] [address] * Phosphorus (06/19/2025 2:38 AM EDT) Phosphorus, Plasma 3.6 2.5 - 4.5 mg/dL 06/19/2025 4:10 AM EDT [facility] Blood Venous blood specimen / Unknown Venipuncture / Unknown 06/19/2025 2:38 AM EDT 06/19/2025 2:54 AM EDT Phillip Clark MD LAB BLOOD ORDERABLES Final R esult Performing Organization Address City/[facility] Co de Phone Number [facility] [address] [place] [address] * (ABNORMAL) Protime-INR (06/19/2025 2:38 AM EDT) Prothrombin Time 26.3(H) 12.0 - 14.3 sec LAB COAGULATION METHOD 06/19/2025 3:09 AM EDT [facility] INR 2.4(H) 0.9 - 1.1 LAB COAGULATION METHOD 06/19/2025 3:09 AM EDT [facility] Blood Venous blood specimen / Unknown Venipuncture / Unknown 06/19/2025 2:38 AM EDT 06/19/2025 2:54 AM EDT Narrative [facility] - 06/19/2025 3:09 AM EDT OPTIMAL INR RANGES FOR PATIENT ON ORAL ANTICOAGULANT THERAPY Prevention of venous thromboembolism INR 2.0 to 3.0 In patients with heart disease: Atrial fibrillation INR 2.0 to 3.0 Valvular heart disease INR 2.0 to 3.0 Tissue heart valves INR 2.0 to 3.0 Mechanical prosthetic valves INR 2.5 to 3.5 Prevention of recurrent PR INR 2.5 to 3.5 us Phillip Clark MD LAB BLOOD ORDERABLES Final R esult [facility] [address] [place] [address] * Magnesium (06/19/2025 2:38 AM EDT) [facility] Magnesium, Plasma 2.4 1.9 - 2.4 mg/dL 06/19/2025 4:10 AM EDT [facility] Blood Venous blood specimen / Unknown Venipuncture / Unknown 06/19/2025 2:38 AM EDT 06/19/2025 2:54 AM EDT us Phillip Clark MD LAB BLOOD ORDERABLES Final R [facility] Performing Organization Address City/[facility]/ZIP Co de Phone Number [facility] [address] [place] [address] * (ABNORMAL) CBC (06/19/2025 2:38 AM EDT) [facility] WBC Count 6.94 3.70 - 10.30 10*3/uL LAB HEMATOLOGY METHOD 06/19/2025 3:17 AM EDT [facility] RBC Count 4.12(L) 4.60 - 6.10 10*6/uL LAB HEMATOLOGY METHOD 06/19/2025 3:17 AM EDT [facility] HGB 11.5(L) 13.7 - 17.5 g/dL LAB HEMATOLOGY METHOD 06/19/2025 3:17 AM EDT [facility] HCT 35.7(L) 40.0 - 51.0 % LAB HEMATOLOGY METHOD 06/19/2025 3:17 AM EDT [facility] Platelet Count 165 155 - 369 10*3/uL LAB HEMATOLOGY METHOD 06/19/2025 3:17 AM EDT [facility] MCV 87 79 - 98 fL LAB HEMATOLOGY METHOD 06/19/2025 3:17 AM EDT [facility] MCH 27.9 26.0 - 32.0 pg LAB HEMATOLOGY METHOD 06/19/2025 3:17 AM EDT [facility] MCHC 32.2 30.7 - 35.5 g/dL LAB HEMATOLOGY METHOD 06/19/2025 3:17 AM EDT [facility] RDW 14.8(H) 11.5 - 14.5 % LAB HEMATOLOGY METHOD 06/19/2025 3:17 AM EDT [facility] MPV 10.6 8.8 - 12.5 fL LAB HEMATOLOGY METHOD 06/19/2025 3:17 AM EDT [facility] nRBC 0.0 <=0.0 per 100 WBCs LAB HEMATOLOGY METHOD 06/19/2025 3:17 AM EDT [facility] Blood Venous blood specimen / Unknown Venipuncture / Unknown 06/19/2025 2:38 AM EDT 06/19/2025 2:54 AM EDT us Phillip Clark MD LAB BLOOD ORDERABLES Final R esult [facility] [address] [place] [address] * XR Chest 1 View (06/19/2025 1:50 AM EDT) Anatomical Region Laterality Modality Chest Digital Radiogra phy Impressions 06/19/2025 5:26 AM EDT Stable aeration. CRITICAL RESULT: No. COMMUNICATION: Per this written report Drafted by Kamran Arellano MD on 06/19/2025 5:26 AM Final report signed by Kamran Arellano MD on 06/19/2025 5:26 AM Narrative 06/19/2025 5:26 AM EDT CLINICAL INDICATION: Post-Op Cardiac Surgery TECHNIQUE: XR CHEST 1 VIEW COMPARISON: 23 hours prior FINDINGS: Perihilar and basal airspace disease and/or atelectasis with small pleural effusions, similar prior. Right internal jugular catheter has been removed. Mediastinal and cardiac contours are stable. Procedure Note Kamran Arellano MD - 06/19/2025 CLINICAL INDICATION: Post-Op Cardiac Surgery TECHNIQUE: XR CHEST 1 VIEW COMPARISON: 23 hours prior FINDINGS: Perihilar and basal airspace disease and/or atelectasis with small pleuraleffusions, similar prior. Right internal jugular catheter has beenremoved. Mediastinal and cardiac contours are stable. IMPRESSION: Stable aeration. CRITICAL RESULT: No. COMMUNICATION: Per this written report Drafted by Kamran Arellano MD on 06/19/2025 5:26 AM Final report signed by Kamran Arellano MD on 06/19/2025 5:26 AM Phillip Clark MD IMG XR PROCEDURES Final Resu lt * XR Chest 1 View (06/18/2025 3:40 AM EDT) Anatomical Region Laterality Modality Chest Digital Radiogra phy Impressions 06/18/2025 8:13 AM EDT Stable exam. CRITICAL RESULT: No. COMMUNICATION: Per this written report Drafted by Kamran Arellano MD on 06/18/2025 8:12 AM Final report signed by Kamran Arellano MD on 06/18/2025 8:13 AM Narrative 06/18/2025 8:13 AM EDT CLINICAL INDICATION: Post-Op Cardiac Surgery TECHNIQUE: XR CHEST 1 VIEW COMPARISON: Yesterday FINDINGS: Basal atelectasis and small pleural effusions are stable. Mediastinal and cardiac contours are stable. Support hardware projects in good position. Procedure Note Kamran Arellano MD - 06/18/2025 CLINICAL INDICATION: Post-Op Cardiac Surgery TECHNIQUE: XR CHEST 1 VIEW COMPARISON: Yesterday FINDINGS: Basal atelectasis and small pleural effusions are stable. Mediastinal andcardiac contours are stable. Support hardware projects in good position. IMPRESSION: Stable exam. CRITICAL RESULT: No. COMMUNICATION: Per this written report Drafted by Kamran Arellano MD on 06/18/2025 8:12 AM Final report signed by Kamran Arellano MD on 06/18/2025 8:13 AM Phillip Clark MD IMG XR PROCEDURES Final Resu lt * (ABNORMAL) Basic metabolic panel (06/18/2025 1:43 AM EDT) Glucose, Plasma 93 74 - 99 mg/dL 06/18/2025 2:17 AM EDT [facility] BUN, Plasma 18 8 - 23 mg/dL 06/18/2025 2:17 AM EDT [facility] Creatinine, Plasma 0.82 0.70 - 1.20 mg/dL 06/18/2025 2:17 AM EDT [facility] BUN/Creatinine Ratio 22 06/18/2025 2:17 AM EDT [facility] Sodium, Plasma 134(L) 136 - 145 mmol/L 06/18/2025 2:17 AM EDT [facility] Potassium, Plasma 3.7 3.6 - 4.9 mmol/L 06/18/2025 2:17 AM EDT [facility] Chloride, Plasma 100 97 - 107 mmol/L 06/18/2025 2:17 AM EDT [facility] CO2, Plasma 26 22 - 29 mmol/L 06/18/2025 2:17 AM EDT [facility] Anion Gap 8 6 - 16 mmol/L 06/18/2025 2:17 AM EDT [facility] Total Calcium, Plasma 8.1(L) 8.9 - 10.2 mg/dL 06/18/2025 2:17 AM EDT [facility] eGFRcr 95.1 mL/min/1.7 3m*2 06/18/2025 2:17 AM EDT [facility] Comment:Reported eGFRcr in m L/min/1.73m2 is based the CKD-EPI 2020 equation that does not use a race coefficient. Blood Blood sample taken from central line / Unknown Venipuncture / Unknown 06/18/2025 1:43 AM EDT 06/18/2025 1:48 AM EDT us Phillip Clark MD LAB BLOOD ORDERABLES Final R esult [facility] [address] [place] [address] * Phosphorus (06/18/2025 1:43 AM EDT) Phosphorus, Plasma 2.6 2.5 - 4.5 mg/dL 06/18/2025 2:17 AM EDT [facility] Blood Blood sample taken from central line / Unknown Venipuncture / Unknown 06/18/2025 1:43 AM EDT 06/18/2025 1:48 AM EDT Phillip Clark MD LAB BLOOD ORDERABLES Final R esult Performing Organization Address City/[facility] Co de Phone Number [facility] [address] [place] [address] * (ABNORMAL) Protime-INR (06/18/2025 1:43 AM EDT) Prothrombin Time 25.2(H) 12.0 - 14.3 sec LAB COAGULATION METHOD 06/18/2025 2:07 AM EDT [facility] INR 2.3(H) 0.9 - 1.1 LAB COAGULATION METHOD 06/18/2025 2:07 AM EDT [facility] Blood Blood sample taken from central line / Unknown Venipuncture / Unknown 06/18/2025 1:43 AM EDT 06/18/2025 1:48 AM EDT Narrative [facility] - 06/18/2025 2:07 AM EDT OPTIMAL INR RANGES FOR PATIENT ON ORAL ANTICOAGULANT THERAPY Prevention of venous thromboembolism INR 2.0 to 3.0 In patients with heart disease: Atrial fibrillation INR 2.0 to 3.0 Valvular heart disease INR 2.0 to 3.0 Tissue heart valves INR 2.0 to 3.0 Mechanical prosthetic valves INR 2.5 to 3.5 Prevention of recurrent PR INR 2.5 to 3.5 Phillip Clark MD LAB BLOOD ORDERABLES Final R esult Performing Organization Address City/[facility]/ZIP Co de Phone Number [facility] [address] [place] [address] * Magnesium (06/18/2025 1:43 AM EDT) Magnesium, Plasma 2.3 1.9 - 2.4 mg/dL 06/18/2025 2:17 AM EDT [facility] Blood Blood sample taken from central line / Unknown Venipuncture / Unknown 06/18/2025 1:43 AM EDT 06/18/2025 1:48 AM EDT Phillip Clark MD LAB BLOOD ORDERABLES Final R esult [facility] [address] [place] [address] * (ABNORMAL) CBC (06/18/2025 1:43 AM EDT) WBC Count 8.51 3.70 - 10.30 10*3/uL LAB HEMATOLOGY METHOD 06/18/2025 1:54 AM EDT [facility] RBC Count 3.67(L) 4.60 - 6.10 10*6/uL LAB HEMATOLOGY METHOD 06/18/2025 1:54 AM EDT [facility] HGB 10.6(L) 13.7 - 17.5 g/dL LAB HEMATOLOGY METHOD 06/18/2025 1:54 AM EDT [facility] HCT 31.2(L) 40.0 - 51.0 % LAB HEMATOLOGY METHOD 06/18/2025 1:54 AM EDT [facility] Platelet Count 121(L) 155 - 369 10*3/uL LAB HEMATOLOGY METHOD 06/18/2025 1:54 AM EDT [facility] MCV 85 79 - 98 fL LAB HEMATOLOGY METHOD 06/18/2025 1:54 AM EDT [facility] MCH 28.9 26.0 - 32.0 pg LAB HEMATOLOGY METHOD 06/18/2025 1:54 AM EDT [facility] MCHC 34.0 30.7 - 35.5 g/dL LAB HEMATOLOGY METHOD 06/18/2025 1:54 AM EDT [facility] RDW 14.7(H) 11.5 - 14.5 % LAB HEMATOLOGY METHOD 06/18/2025 1:54 AM EDT [facility] MPV 10.4 8.8 - 12.5 fL LAB HEMATOLOGY METHOD 06/18/2025 1:54 AM EDT [facility] nRBC 0.0 <=0.0 per 100 WBCs LAB HEMATOLOGY METHOD 06/18/2025 1:54 AM EDT [facility] Blood Blood sample taken from central line / Unknown Venipuncture / Unknown 06/18/2025 1:43 AM EDT 06/18/2025 1:48 AM EDT us Phillip Clark MD LAB BLOOD ORDERABLES Final R esult [facility] [address] [place] [address] * XR Chest 1 View (06/17/2025 3:14 AM EDT) Anatomical Region Laterality Modality Chest Digital Radiogra phy Impressions 06/17/2025 9:48 AM EDT No significant interval changes CRITICAL RESULT: No. COMMUNICATION: Per this written report. By electronically signing this report, I, the attending physician, attest that I have personally reviewed the images/data for the above examination(s) and agree with the final edited report. Drafted by Patel Taylor MD on 06/17/2025 9:11 AM Final report signed by Idania Edmonds MD on 06/17/2025 9:48 AM Narrative 06/17/2025 9:48 AM EDT CLINICAL INDICATION: Post-Op Cardiac Surgery TECHNIQUE: XR CHEST 1 VIEW COMPARISON: Chest radiograph 06/16/2025 FINDINGS: Cardiomediastinal silhouette is stable status post median sternotomy. Right internal jugular central venous catheter in unchanged positions. Mild interstitial edema without change. Bilateral infrahilar atelectasis and small pleural effusions, stable. Procedure Note Idania Edmonds MD - 06/17/2025 CLINICAL INDICATION: Post-Op Cardiac Surgery TECHNIQUE: XR CHEST 1 VIEW COMPARISON: Chest radiograph 06/16/2025 FINDINGS: Cardiomediastinal silhouette is stable status post median sternotomy.Right internal jugular central venous catheter in unchanged positions.Mild interstitial edema without change. Bilateral infrahilar atelectasisand small pleural effusions, stable. IMPRESSION: No significant interval changes CRITICAL RESULT: No. COMMUNICATION: Per this written report. By electronically signing this report, I, the attending physician, attestthat I have personally reviewed the images/data for the aboveexamination(s) and agree with the final edited report. Drafted by Patel Taylor MD on 06/17/2025 9:11 AM Final report signed by Idania Edmonds MD on 06/17/2025 9:48 AM us Phillip Clark MD IMG XR PROCEDURES Final Resu lt * (ABNORMAL) Basic metabolic panel (06/17/2025 12:17 AM EDT) Glucose, Plasma 88 74 - 99 mg/dL 06/17/2025 12:54 AM EDT [facility] BUN, Plasma 15 8 - 23 mg/dL 06/17/2025 12:54 AM EDT [facility] Creatinine, Plasma 0.81 0.70 - 1.20 mg/dL 06/17/2025 12:54 AM EDT [facility] BUN/Creatinine Ratio 19 06/17/2025 12:54 AM EDT [facility] Sodium, Plasma 133(L) 136 - 145 mmol/L 06/17/2025 12:54 AM EDT [facility] Potassium, Plasma 3.9 3.6 - 4.9 mmol/L 06/17/2025 12:54 AM EDT [facility] Chloride, Plasma 98 97 - 107 mmol/L 06/17/2025 12:54 AM EDT [facility] CO2, Plasma 25 22 - 29 mmol/L 06/17/2025 12:54 AM EDT [facility] Anion Gap 10 6 - 16 mmol/L 06/17/2025 12:54 AM EDT [facility] Total Calcium, Plasma 8.1(L) 8.9 - 10.2 mg/dL 06/17/2025 12:54 AM EDT [facility] eGFRcr 95.4 mL/min/1.7 3m*2 06/17/2025 12:54 AM EDT [facility] Comment:Reported eGFRcr in m L/min/1.73m2 is based the CKD-EPI 2020 equation that does not use a race coefficient. Blood Blood sample taken from central line / Unknown Venipuncture / Unknown 06/17/2025 12:17 AM EDT 06/17/2025 12:24 AM EDT Phillip Clark MD LAB BLOOD ORDERABLES Final R esult Performing Organization Address [facility]/ZIP Co de Phone Number [facility] [address] [place] [address] * Phosphorus (06/17/2025 12:17 AM EDT) Phosphorus, Plasma 2.9 2.5 - 4.5 mg/dL 06/17/2025 12:54 AM EDT [facility] Blood Blood sample taken from central line / Unknown Venipuncture / Unknown 06/17/2025 12:17 AM EDT 06/17/2025 12:24 AM EDT us Phillip Clark MD LAB BLOOD ORDERABLES Final R esult Performing Organization Address [facility] Co de Phone Number [facility] [address] [place] [address] * (ABNORMAL) Protime-INR (06/17/2025 12:17 AM EDT) Prothrombin Time 18.7(H) 12.0 - 14.3 sec LAB COAGULATION METHOD 06/17/2025 1:16 AM EDT [facility] INR 1.5(H) 0.9 - 1.1 LAB COAGULATION METHOD 06/17/2025 1:16 AM EDT [facility] Blood Blood sample taken from central line / Unknown Venipuncture / Unknown 06/17/2025 12:17 AM EDT 06/17/2025 12:24 AM EDT Narrative [facility] - 06/17/2025 1:16 AM EDT OPTIMAL INR RANGES FOR PATIENT ON ORAL ANTICOAGULANT THERAPY Prevention of venous thromboembolism INR 2.0 to 3.0 In patients with heart disease: Atrial fibrillation INR 2.0 to 3.0 Valvular heart disease INR 2.0 to 3.0 Tissue heart valves INR 2.0 to 3.0 Mechanical prosthetic valves INR 2.5 to 3.5 Prevention of recurrent PR INR 2.5 to 3.5 us Phillip Clark MD LAB BLOOD ORDERABLES Final R esult Performing Organization Address City/[facility]/ZIP Co de Phone Number [facility] [address] [place] [address] * Magnesium (06/17/2025 12:17 AM EDT) Magnesium, Plasma 2.3 1.9 - 2.4 mg/dL 06/17/2025 12:54 AM EDT [facility] Blood Blood sample taken from central line / Unknown Venipuncture / Unknown 06/17/2025 12:17 AM EDT 06/17/2025 12:24 AM EDT us Phillip Clark MD LAB BLOOD ORDERABLES Final R esult [facility] [address] [place] [address] * (ABNORMAL) CBC (06/17/2025 12:17 AM EDT) WBC Count 10.83(H) 3.70 - 10.30 10*3/uL LAB HEMATOLOGY METHOD 06/17/2025 12:32 AM EDT [facility] RBC Count 4.08(L) 4.60 - 6.10 10*6/uL LAB HEMATOLOGY METHOD 06/17/2025 12:32 AM EDT [facility] HGB 11.3(L) 13.7 - 17.5 g/dL LAB HEMATOLOGY METHOD 06/17/2025 12:32 AM EDT [facility] HCT 35.0(L) 40.0 - 51.0 % LAB HEMATOLOGY METHOD 06/17/2025 12:32 AM EDT [facility] Platelet Count 116(L) 155 - 369 10*3/uL LAB HEMATOLOGY METHOD 06/17/2025 12:32 AM EDT [facility] MCV 86 79 - 98 fL LAB HEMATOLOGY METHOD 06/17/2025 12:32 AM EDT [facility] MCH 27.7 26.0 - 32.0 pg LAB HEMATOLOGY METHOD 06/17/2025 12:32 AM EDT [facility] MCHC 32.3 30.7 - 35.5 g/dL LAB HEMATOLOGY METHOD 06/17/2025 12:32 AM EDT [facility] RDW 15.1(H) 11.5 - 14.5 % LAB HEMATOLOGY METHOD 06/17/2025 12:32 AM EDT [facility] MPV 10.3 8.8 - 12.5 fL LAB HEMATOLOGY METHOD 06/17/2025 12:32 AM EDT [facility] nRBC 0.0 <=0.0 per 100 WBCs LAB HEMATOLOGY METHOD 06/17/2025 12:32 AM EDT [facility] Blood Blood sample taken from central line / Unknown Venipuncture / Unknown 06/17/2025 12:17 AM EDT 06/17/2025 12:24 AM EDT us Phillip Clark MD LAB BLOOD ORDERABLES Final R esult Performing Organization Address City/[facility]/ZIP Co de Phone Number [facility] [address] [place] [address] * Magnesium (06/16/2025 5:35 PM EDT) Magnesium, Plasma 2.2 1.9 - 2.4 mg/dL 06/16/2025 7:41 PM EDT [facility] Blood Venous blood specimen / Unknown Venipuncture / Unknown 06/16/2025 5:35 PM EDT 06/16/2025 7:12 PM EDT us Phillip Clark MD LAB BLOOD ORDERABLES Final R esult Performing Organization Address City/[facility]/ZIP Co de Phone Number [facility] [address] [place] [address] * (ABNORMAL) Renal function panel (06/16/2025 5:35 PM EDT) Glucose, Plasma 89 74 - 99 mg/dL 06/16/2025 7:41 PM EDT [facility] BUN, Plasma 15 8 - 23 mg/dL 06/16/2025 7:41 PM EDT [facility] Creatinine, Plasma 0.79 0.70 - 1.20 mg/dL 06/16/2025 7:41 PM EDT [facility] BUN/Creatinine Ratio 19 06/16/2025 7:41 PM EDT [facility] Sodium, Plasma 134(L) 136 - 145 mmol/L 06/16/2025 7:41 PM EDT [facility] Potassium, Plasma 3.8 3.6 - 4.9 mmol/L 06/16/2025 7:41 PM EDT [facility] Chloride, Plasma 98 97 - 107 mmol/L 06/16/2025 7:41 PM EDT [facility] CO2, Plasma 25 22 - 29 mmol/L 06/16/2025 7:41 PM EDT [facility] Anion Gap 11 6 - 16 mmol/L 06/16/2025 7:41 PM EDT [facility] Total Calcium, Plasma 8.4(L) 8.9 - 10.2 mg/dL 06/16/2025 7:41 PM EDT [facility] Phosphorus, Plasma 2.2(L) 2.5 - 4.5 mg/dL 06/16/2025 7:41 PM EDT [facility] Albumin, Plasma 3.4(L) 3.5 - 5.2 g/dL 06/16/2025 7:41 PM EDT [facility] eGFRcr 96.2 mL/min/1.7 3m*2 06/16/2025 7:41 PM EDT [facility] Comment:Reported eGFRcr in m L/min/1.73m2 is based the CKD-EPI 2020 equation that does not use a race coefficient. Blood Venous blood specimen / Unknown Venipuncture / Unknown 06/16/2025 5:35 PM EDT 06/16/2025 7:12 PM EDT us Phillip Clark MD LAB BLOOD ORDERABLES Final R esult [facility] [address] [place] [address] * RI CRITICAL CARE, E/M 30-74 MINUTES (06/16/2025 9:58 AM EDT) Narrative Belle Smith MD - 06/16/2025 9:58 AM EDT Belle Smith MD 06/16/2025 1:20 PM Critical Care Performed by: Belle Smith MD Authorized by: Belle Smith MD Critical care provider statement: Critical care time (minutes): 38 Critical care time was exclusive of: Separately billable procedures and treating other patients and teaching time Critical care was time spent personally by me on the following activities: Development of treatment plan with patient or surrogate, ordering and performing treatments and interventions, discussions with consultants, ordering and review of laboratory studies, discussions with primary provider, ordering and review of radiographic studies, evaluation of patient's response to treatment and examination of patient Critical care statement: I saw and evaluated the patient with the resident/ fellow. I discussed the case with the resident/ fellow and agree with the findings and plan as documented. us Belle Smith MD IN CLINIC/BEDSIDE ORDERABLES Final Result * (ABNORMAL) POCT glucose meter (06/16/2025 8:40 AM EDT) POCT Glucose 102(H) 74 - 99 mg/dL 06/16/2025 8:45 AM EDT [facility] Comment:Accuracy of a glucos e result obtained from a capillary whole blood specimen relies upon adequate, non-compromised capillary blood flow. If the capillary glucose result is not consistent with the patient's clinical signs and symptoms, glucose testing should be repeated with either an arterial or venous sample on the glucometer or sent to the main labortory for testing. Comment 06/16/2025 8:45 AM EDT [facility] Lap Checker ID Fariba Blanton [id number] 8:45 AM EDT [facility] Device ID [id number] 06/16/2025 8:45 AM EDT [facility] Specimen Type POC Arterial 06/16/2025 8:45 AM EDT [facility] Blood Arterial blood specimen / Unknown 06/16/2025 8:40 AM EDT 06/16/2025 8:45 AM EDT us Phillip Clark MD LAB POINT OF CARE TE ST DOCKED DEVICE UNSOLICITED RESULTS Final Result [facility] [address] [place] [address] * (ABNORMAL) Basic metabolic panel (06/16/2025 5:58 AM EDT) Glucose, Plasma 124(H) 74 - 99 mg/dL 06/16/2025 6:35 AM EDT [facility] BUN, Plasma 16 8 - 23 mg/dL 06/16/2025 6:35 AM EDT [facility] Creatinine, Plasma 0.83 0.70 - 1.20 mg/dL 06/16/2025 6:35 AM EDT [facility] BUN/Creatinine Ratio 19 06/16/2025 6:35 AM EDT [facility] Sodium, Plasma 132(L) 136 - 145 mmol/L 06/16/2025 6:35 AM EDT [facility] Potassium, Plasma 3.8 3.6 - 4.9 mmol/L 06/16/2025 6:35 AM EDT [facility] Chloride, Plasma 100 97 - 107 mmol/L 06/16/2025 6:35 AM EDT [facility] CO2, Plasma 25 22 - 29 mmol/L 06/16/2025 6:35 AM EDT [facility] Anion Gap 7 6 - 16 mmol/L 06/16/2025 6:35 AM EDT [facility] Total Calcium, Plasma 8.4(L) 8.9 - 10.2 mg/dL 06/16/2025 6:35 AM EDT [facility] eGFRcr 94.7 mL/min/1.7 3m*2 06/16/2025 6:35 AM EDT [facility] Comment:Reported eGFRcr in m L/min/1.73m2 is based the CKD-EPI 2020 equation that does not use a race coefficient. Blood Arterial blood specimen / Unknown Venipuncture / Unknown 06/16/2025 5:58 AM EDT 06/16/2025 6:05 AM EDT us Phillip Clark MD LAB BLOOD ORDERABLES Final R esult [facility] [address] [place] [address] * XR Chest 1 View (06/16/2025 5:14 AM EDT) Anatomical Region Laterality Modality Chest Digital Radiogra phy Impressions 06/16/2025 8:15 AM EDT Interval removal of the Salem-Shira catheter, the right IJ sheath remains in place with tip in the mid to distal SVC. Otherwise, no significant changes CRITICAL RESULT: No. COMMUNICATION: Per this written report. Drafted by Mona Smith MD on 06/16/2025 8:13 AM Final report signed by Mona Smith MD on 06/16/2025 8:15 AM Narrative 06/16/2025 8:15 AM EDT CLINICAL INDICATION: Post-Op Cardiac Surgery TECHNIQUE: XR CHEST 1 VIEW COMPARISON: Chest radiograph 06/15/2025 FINDINGS: Enlarged cardiac silhouette stable status post median sternotomy. Interval removal of the Salem-Shira catheter, right IJ sheath remains in place with tip in the mid to distal SVC. No pneumothorax or pleural effusions. Ongoing interstitial edema. Procedure Note Mona Smith MD - 06/16/2025 CLINICAL INDICATION: Post-Op Cardiac Surgery TECHNIQUE: XR CHEST 1 VIEW COMPARISON: Chest radiograph 06/15/2025 FINDINGS: Enlarged cardiac silhouette stable status post median sternotomy. Intervalremoval of the Salem-Shira catheter, right IJ sheath remains in place withtip in the mid to distal SVC. No pneumothorax or pleural effusions. Ongoing interstitial edema. IMPRESSION: Interval removal of the Salem-Shira catheter, the right IJ sheath remainsin place with tip in the mid to distal SVC. Otherwise, no significantchanges CRITICAL RESULT: No. COMMUNICATION: Per this written report. Drafted by Mona Smith MD on 06/16/2025 8:13 AM Final report signed by Mona Smith MD on 06/16/2025 8:15 AM us Phillip Clark MD IMG XR PROCEDURES Final Resu lt * XR Abdomen 1 View (06/16/2025 1:20 AM EDT) Anatomical Region Laterality Modality Body Digital Radiogra phy Impressions 06/16/2025 2:25 AM EDT Diffuse gaseous distention of the colon, increased since 2 days ago, most likely postoperative ileus. CRITICAL RESULT: No. COMMUNICATION: Per this written report. Drafted by Opal Lopez on 06/16/2025 2:24 AM Final report signed by Opal Lopez on 06/16/2025 2:25 AM Narrative 06/16/2025 2:25 AM EDT CLINICAL INDICATION: Constipation following cardiac surgery TECHNIQUE: XR ABDOMEN 1 VIEW COMPARISON: Abdominal radiograph June 14, 2025 FINDINGS: 2 AP views of the abdomen are provided. There is diffuse gaseous distention of the colon. Mild stool burden throughout the colon. No pathologically gas distended loops of small bowel. The stomach is not gas distended. No findings to suggest free intra-abdominal gas. Givens catheter projects over the pelvis. Lung bases are grossly clear. No acute osseous findings. Procedure Note Opal Lopez MD - 06/16/2025 CLINICAL INDICATION: Constipation following cardiac surgery TECHNIQUE: XR ABDOMEN 1 VIEW COMPARISON: Abdominal radiograph June 14, 2025 FINDINGS: 2 AP views of the abdomen are provided. There is diffuse gaseousdistention of the colon. Mild stool burden throughout the colon. Nopathologically gas distended loops of small bowel. The stomach is not gasdistended. No findings to suggest free intra-abdominal gas. Givens catheterprojects over the pelvis. Lung bases are grossly clear. No acute osseousfindings. IMPRESSION: Diffuse gaseous distention of the colon, increased since 2 days ago, mostlikely postoperative ileus. CRITICAL RESULT: No. COMMUNICATION: Per this written report. Drafted by Opal Lopez on 06/16/2025 2:24 AM Final report signed by Opal Lopez on 06/16/2025 2:25 AM us Phillip Clark MD IMG XR PROCEDURES Final Resu lt * Phosphorus (06/16/2025 12:36 AM EDT) Phosphorus, Plasma 3.0 2.5 - 4.5 mg/dL 06/16/2025 1:12 AM EDT [facility] Blood Arterial blood specimen / Unknown Venipuncture / Unknown 06/16/2025 12:36 AM EDT 06/16/2025 12:48 AM EDT us Phillip Clark MD LAB BLOOD ORDERABLES Final R esult [facility] [address] [place] [address] * (ABNORMAL) Protime-INR (06/16/2025 12:36 AM EDT) Prothrombin Time 18.0(H) 12.0 - 14.3 sec LAB COAGULATION METHOD 06/16/2025 1:06 AM EDT [facility] INR 1.5(H) 0.9 - 1.1 LAB COAGULATION METHOD 06/16/2025 1:06 AM EDT [facility] Blood Arterial blood specimen / Unknown Venipuncture / Unknown 06/16/2025 12:36 AM EDT 06/16/2025 12:48 AM EDT Narrative [facility] - 06/16/2025 1:06 AM EDT OPTIMAL INR RANGES FOR PATIENT ON ORAL ANTICOAGULANT THERAPY Prevention of venous thromboembolism INR 2.0 to 3.0 In patients with heart disease: Atrial fibrillation INR 2.0 to 3.0 Valvular heart disease INR 2.0 to 3.0 Tissue heart valves INR 2.0 to 3.0 Mechanical prosthetic valves INR 2.5 to 3.5 Prevention of recurrent PR INR 2.5 to 3.5 Phillip Clark MD LAB BLOOD ORDERABLES Final R [employer] Performing Organization Address City/[facility]/[place] [address] * (ABNORMAL) Magnesium (06/16/2025 12:36 AM EDT) Magnesium, Plasma 2.5(H) 1.9 - 2.4 mg/dL 06/16/2025 1:12 AM EDT [facility] Blood Arterial blood specimen / Unknown Venipuncture / Unknown 06/16/2025 12:36 AM EDT 06/16/2025 12:48 AM EDT Phillip Clark MD LAB BLOOD ORDERABLES Final R esult [facility] [address] [place] [address] * (ABNORMAL) CBC (06/16/2025 12:36 AM EDT) [facility] WBC Count 13.67(H) 3.70 - 10.30 10*3/uL LAB HEMATOLOGY METHOD 06/16/2025 1:01 AM EDT [facility] RBC Count 4.36(L) 4.60 - 6.10 10*6/uL LAB HEMATOLOGY METHOD 06/16/2025 1:01 AM EDT [facility] HGB 12.3(L) 13.7 - 17.5 g/dL LAB HEMATOLOGY METHOD 06/16/2025 1:01 AM EDT [facility] HCT 37.1(L) 40.0 - 51.0 % LAB HEMATOLOGY METHOD 06/16/2025 1:01 AM EDT [facility] Platelet Count 106(L) 155 - 369 10*3/uL LAB HEMATOLOGY METHOD 06/16/2025 1:01 AM EDT [facility] MCV 85 79 - 98 fL LAB HEMATOLOGY METHOD 06/16/2025 1:01 AM EDT [facility] MCH 28.2 26.0 - 32.0 pg LAB HEMATOLOGY METHOD 06/16/2025 1:01 AM EDT [facility] MCHC 33.2 30.7 - 35.5 g/dL LAB HEMATOLOGY METHOD 06/16/2025 1:01 AM EDT [facility] RDW 15.4(H) 11.5 - 14.5 % LAB HEMATOLOGY METHOD 06/16/2025 1:01 AM EDT [facility] MPV 10.8 8.8 - 12.5 fL LAB HEMATOLOGY METHOD 06/16/2025 1:01 AM EDT [facility] nRBC 0.0 <=0.0 per 100 WBCs LAB HEMATOLOGY METHOD 06/16/2025 1:01 AM EDT [facility] Blood Arterial blood specimen / Unknown Venipuncture / Unknown 06/16/2025 12:36 AM EDT 06/16/2025 12:48 AM EDT us Phillip Clark MD LAB BLOOD ORDERABLES Final R esult [facility] [address] [place] [address] * (ABNORMAL) Blood gas, arterial (06/16/2025 12:36 AM EDT) pH, Arterial 7.43(H) 7.31 - 7.42 LAB HEMATOLOGY METHOD 06/16/2025 12:58 AM EDT [facility] pCO2, Arterial 41 32 - 45 mmHg LAB HEMATOLOGY METHOD 06/16/2025 12:58 AM EDT [facility] pO2, Arterial 65(L) >80 mmHg LAB HEMATOLOGY METHOD 06/16/2025 12:58 AM EDT [facility] SO2, Measured, Arterial 94 94 - 98 % LAB HEMATOLOGY METHOD 06/16/2025 12:58 AM EDT [facility] Base Excess, Arterial 2.5 -2.0 - 3.0 mmol/L LAB HEMATOLOGY METHOD 06/16/2025 12:58 AM EDT [facility] Bicarbonate, Calculated, Arterial 27(H) 22 - 26 mmol/L LAB HEMATOLOGY METHOD 06/16/2025 12:58 AM EDT [facility] Hematocrit, Whole Blood 37.9(L) 40.0 - 51.0 % LAB HEMATOLOGY METHOD 06/16/2025 12:58 AM EDT [facility] Sodium, Whole Blood 133(L) 136 - 145 mmol/L LAB HEMATOLOGY METHOD 06/16/2025 12:58 AM EDT [facility] Potassium, Whole Blood 3.4(L) 3.6 - 4.9 mmol/L LAB HEMATOLOGY METHOD 06/16/2025 12:58 AM EDT [facility] Chloride, Whole Blood 100 97 - 107 mmol/L LAB HEMATOLOGY METHOD 06/16/2025 12:58 AM EDT [facility] Glucose, Whole Blood 124(H) 74 - 99 mg/dL LAB HEMATOLOGY METHOD 06/16/2025 12:58 AM EDT [facility] Ionized Calcium, Whole Blood 4.3(L) 4.6 - 5.1 mg/dL LAB HEMATOLOGY METHOD 06/16/2025 12:58 AM EDT [facility] Lactate, Arterial, Whole Blood 1.0 0.5 - 1.6 mmol/L LAB HEMATOLOGY METHOD 06/16/2025 12:58 AM EDT [facility] Blood Arterial blood specimen / Unknown Arterial Puncture / Unknown 06/16/2025 12:36 AM EDT 06/16/2025 12:55 AM EDT Phillip Clark MD LAB BLOOD ORDERABLES Final R esult Performing Organization Address City/[facility] Co de Phone Number [facility] [address] [place] [address] * (ABNORMAL) POCT glucose meter (06/15/2025 8:00 PM EDT) POCT Glucose 120(H) 74 - 99 mg/dL 06/15/2025 8:01 PM EDT [facility] Comment:Accuracy of a glucos e result obtained from a capillary whole blood specimen relies upon adequate, non-compromised capillary blood flow. If the capillary glucose result is not consistent with the patient's clinical signs and symptoms, glucose testing should be repeated with either an arterial or venous sample on the glucometer or sent to the main labortory for testing. Comment 06/15/2025 8:01 PM EDT [facility] Lap Checker ID Svetlana Reilly 8:01 PM EDT [facility] Device ID [id number] 06/15/2025 8:01 PM EDT [facility] Specimen Type POC Capillary 06/15/2025 8:01 PM EDT [facility] Blood Capillary blood specimen / Unknown 06/15/2025 8:00 PM EDT 06/15/2025 8:01 PM EDT Phillip Clark MD LAB POINT OF CARE TE ST DOCKED DEVICE UNSOLICITED RESULTS Final Result Performing Organization Address City/[facility] Co de Phone Number [facility] [address] [place] [address] * (ABNORMAL) POCT glucose meter (06/15/2025 5:56 PM EDT) Pathologist [facility] POCT Glucose 121(H) 74 - 99 mg/dL 06/15/2025 5:57 PM EDT [facility] Comment:Accuracy of a glucos e result obtained from a capillary whole blood specimen relies upon adequate, non-compromised capillary blood flow. If the capillary glucose result is not consistent with the patient's clinical signs and symptoms, glucose testing should be repeated with either an arterial or venous sample on the glucometer or sent to the main labortory for testing. Comment 06/15/2025 5:57 PM EDT [facility] Lap Checker ID Bony Thomas 025 5:57 PM EDT [facility] Device ID [id number] 06/15/2025 5:57 PM EDT [facility] Specimen Type POC Arterial 06/15/2025 5:57 PM EDT [facility] Blood Arterial blood specimen / Unknown 06/15/2025 5:56 PM EDT 06/15/2025 5:57 PM EDT us Phillip Clark MD LAB POINT OF CARE TE ST DOCKED DEVICE UNSOLICITED RESULTS Final Result Performing Organization Address City/[facility] Co de Phone Number [facility] [address] [place] [address] * Magnesium (06/15/2025 4:11 PM EDT) Magnesium, Plasma 2.1 1.9 - 2.4 mg/dL 06/15/2025 6:21 PM EDT [facility] Blood Venous blood specimen / Unknown Venipuncture / Unknown 06/15/2025 4:11 PM EDT 06/15/2025 4:39 PM EDT Phillip Clark MD LAB BLOOD ORDERABLES Final R esult Performing Organization Address City/[facility]/ZIP Co de Phone Number [facility] [address] [place] [address] * Phosphorus (06/15/2025 4:11 PM EDT) Phosphorus, Plasma 2.9 2.5 - 4.5 mg/dL 06/15/2025 5:12 PM EDT [facility] Blood Venous blood specimen / Unknown Venipuncture / Unknown 06/15/2025 4:11 PM EDT 06/15/2025 4:39 PM EDT us Phillip Clark MD LAB BLOOD ORDERABLES Final R esult [facility] [address] [place] [address] * (ABNORMAL) Basic metabolic panel (06/15/2025 4:11 PM EDT) Glucose, Plasma 123(H) 74 - 99 mg/dL 06/15/2025 5:12 PM EDT [facility] BUN, Plasma 19 8 - 23 mg/dL 06/15/2025 5:12 PM EDT [facility] Creatinine, Plasma 0.88 0.70 - 1.20 mg/dL 06/15/2025 5:12 PM EDT [facility] BUN/Creatinine Ratio 22 06/15/2025 5:12 PM EDT [facility] Sodium, Plasma 133(L) 136 - 145 mmol/L 06/15/2025 5:12 PM EDT [facility] Potassium, Plasma 3.9 3.6 - 4.9 mmol/L 06/15/2025 5:12 PM EDT [facility] Chloride, Plasma 102 97 - 107 mmol/L 06/15/2025 5:12 PM EDT [facility] CO2, Plasma 23 22 - 29 mmol/L 06/15/2025 5:12 PM EDT [facility] Anion Gap 8 6 - 16 mmol/L 06/15/2025 5:12 PM EDT [facility] Total Calcium, Plasma 8.6(L) 8.9 - 10.2 mg/dL 06/15/2025 5:12 PM EDT [facility] eGFRcr 93.1 mL/min/1.7 3m*2 06/15/2025 5:12 PM EDT [facility] Comment:Reported eGFRcr in m L/min/1.73m2 is based the CKD-EPI 2020 equation that does not use a race coefficient. Blood Venous blood specimen / Unknown Venipuncture / Unknown 06/15/2025 4:11 PM EDT 06/15/2025 4:39 PM EDT Phillip Clark MD LAB BLOOD ORDERABLES Final R esult [facility] [address] [place] [address] * (ABNORMAL) POCT glucose meter (06/15/2025 12:14 PM EDT) POCT Glucose 137(H) 74 - 99 mg/dL 06/15/2025 12:16 PM EDT [facility] Comment:Accuracy of a glucos e result obtained from a capillary whole blood specimen relies upon adequate, non-compromised capillary blood flow. If the capillary glucose result is not consistent with the patient's clinical signs and symptoms, glucose testing should be repeated with either an arterial or venous sample on the glucometer or sent to the main labortory for testing. Comment 06/15/2025 12:16 PM EDT [facility] Lap Checker ID Bony Thomas 025 12:16 PM EDT [facility] Device ID [id number] 06/15/2025 12:16 PM EDT [facility] Specimen Type POC Arterial 06/15/2025 12:16 PM EDT [facility] Blood Arterial blood specimen / Unknown 06/15/2025 12:14 PM EDT 06/15/2025 12:16 PM EDT Phillip Clark MD LAB POINT OF CARE TE ST DOCKED DEVICE UNSOLICITED RESULTS Final Result [facility] [address] [place] [address] * RI CRITICAL CARE, E/M 30-74 MINUTES (06/15/2025 9:19 AM EDT) Narrative Belle Smith MD - 06/15/2025 9:19 AM EDT Belle Smith MD 06/15/2025 1:41 PM Critical Care Performed by: Belle Smith MD Authorized by: Belle Smith MD Critical care provider statement: Critical care time (minutes): 38 Critical care time was exclusive of: Separately billable procedures and treating other patients and teaching time Critical care was time spent personally by me on the following activities: Development of treatment plan with patient or surrogate, ordering and performing treatments and interventions, discussions with consultants, ordering and review of laboratory studies, discussions with primary provider, ordering and review of radiographic studies, evaluation of patient's response to treatment and examination of patient Critical care statement: I saw and evaluated the patient with the resident/ fellow. I discussed the case with the resident/ fellow and agree with the findings and plan as documented. us Belle Smith MD IN CLINIC/BEDSIDE ORDERABLES Final Result * (ABNORMAL) POCT glucose meter (06/15/2025 8:24 AM EDT) POCT Glucose 129(H) 74 - 99 mg/dL 06/15/2025 8:25 AM EDT [facility] Comment:Accuracy of a glucos e result obtained from a capillary whole blood specimen relies upon adequate, non-compromised capillary blood flow. If the capillary glucose result is not consistent with the patient's clinical signs and symptoms, glucose testing should be repeated with either an arterial or venous sample on the glucometer or sent to the main labortory for testing. Comment 06/15/2025 8:25 AM EDT [facility] Lap Checker ID Bony Thomas 025 8:25 AM EDT [facility] Device ID [id number] 06/15/2025 8:25 AM EDT [facility] Specimen Type POC Arterial 06/15/2025 8:25 AM EDT [facility] Blood Arterial blood specimen / Unknown 06/15/2025 8:24 AM EDT 06/15/2025 8:25 AM EDT us Phillip Clark MD LAB POINT OF CARE TE ST DOCKED DEVICE UNSOLICITED RESULTS Final Result Performing Organization Address City/State/[facility] Co de Phone Number [facility] [address] [place] [address] * (ABNORMAL) CBC and Differential (06/15/2025 8:18 AM EDT) WBC Count 12.56(H) 3.70 - 10.30 10*3/uL LAB HEMATOLOGY METHOD 06/15/2025 8:47 AM EDT [facility] RBC Count 4.60 4.60 - 6.10 10*6/uL LAB HEMATOLOGY METHOD 06/15/2025 8:47 AM EDT [facility] HGB 12.8(L) 13.7 - 17.5 g/dL LAB HEMATOLOGY METHOD 06/15/2025 8:47 AM EDT [facility] HCT 39.4(L) 40.0 - 51.0 % LAB HEMATOLOGY METHOD 06/15/2025 8:47 AM EDT [facility] Platelet Count 120(L) 155 - 369 10*3/uL LAB HEMATOLOGY METHOD 06/15/2025 8:47 AM EDT [facility] MCV 86 79 - 98 fL LAB HEMATOLOGY METHOD 06/15/2025 8:47 AM EDT [facility] MCH 27.8 26.0 - 32.0 pg LAB HEMATOLOGY METHOD 06/15/2025 8:47 AM EDT [facility] MCHC 32.5 30.7 - 35.5 g/dL LAB HEMATOLOGY METHOD 06/15/2025 8:47 AM EDT [facility] RDW 15.5(H) 11.5 - 14.5 % LAB HEMATOLOGY METHOD 06/15/2025 8:47 AM EDT [facility] MPV 10.6 8.8 - 12.5 fL LAB HEMATOLOGY METHOD 06/15/2025 8:47 AM EDT [facility] nRBC 0.0 <=0.0 per 100 WBCs LAB HEMATOLOGY METHOD 06/15/2025 8:47 AM EDT [facility] Differential Type Automated LAB HEMATOLOGY METHOD 06/15/2025 8:47 AM EDT [facility] Neutrophils % 84 % LAB HEMATOLOGY METHOD 06/15/2025 8:47 AM EDT [facility] Lymphocytes % 5 % LAB HEMATOLOGY METHOD 06/15/2025 8:47 AM EDT [facility] Monocytes % 10 % LAB HEMATOLOGY METHOD 06/15/2025 8:47 AM EDT [facility] Eosinophils % 0 % LAB HEMATOLOGY METHOD 06/15/2025 8:47 AM EDT [facility] Basophils % 0 % LAB HEMATOLOGY METHOD 06/15/2025 8:47 AM EDT [facility] Immature Granulocytes % 1 % LAB HEMATOLOGY METHOD 06/15/2025 8:47 AM EDT [facility] Neutrophils Absolute 10.59(H) 1.60 - 6.10 10*3/uL LAB HEMATOLOGY METHOD 06/15/2025 8:47 AM EDT [facility] Lymphocytes Absolute 0.60(L) 1.20 - 3.90 10*3/uL LAB HEMATOLOGY METHOD 06/15/2025 8:47 AM EDT [facility] Monocytes Absolute 1.29(H) 0.30 - 0.90 10*3/uL LAB HEMATOLOGY METHOD 06/15/2025 8:47 AM EDT [facility] Eosinophils Absolute 0.00 0.00 - 0.50 10*3/uL LAB HEMATOLOGY METHOD 06/15/2025 8:47 AM EDT [facility] Basophils Absolute 0.02 0.00 - 0.10 10*3/uL LAB HEMATOLOGY METHOD 06/15/2025 8:47 AM EDT [facility] Immature Granulocytes Absolute 0.06 0.00 - 0.06 10*3/uL LAB HEMATOLOGY METHOD 06/15/2025 8:47 AM EDT [facility] Blood Venous blood specimen / Unknown Venipuncture / Unknown 06/15/2025 8:18 AM EDT 06/15/2025 8:34 AM EDT Narrative [facility] - 06/15/2025 8:47 AM EDT Therapeutic decision making should be based on absolute values, rather than percentages. us Phillip Clark MD LAB BLOOD ORDERABLES Final R esult [facility] [address] [place] [address] * (ABNORMAL) Protime-INR (06/15/2025 6:40 AM EDT) Prothrombin Time 16.5(H) 12.0 - 14.3 sec LAB COAGULATION METHOD 06/15/2025 7:53 AM EDT [facility] INR 1.3(H) 0.9 - 1.1 LAB COAGULATION METHOD 06/15/2025 7:53 AM EDT [facility] Blood Arterial blood specimen / Unknown Venipuncture / Unknown 06/15/2025 6:40 AM EDT 06/15/2025 6:47 AM EDT Narrative [facility] - 06/15/2025 7:53 AM EDT OPTIMAL INR RANGES FOR PATIENT ON ORAL ANTICOAGULANT THERAPY Prevention of venous thromboembolism INR 2.0 to 3.0 In patients with heart disease: Atrial fibrillation INR 2.0 to 3.0 Valvular heart disease INR 2.0 to 3.0 Tissue heart valves INR 2.0 to 3.0 Mechanical prosthetic valves INR 2.5 to 3.5 Prevention of recurrent PR INR 2.5 to 3.5 Phillip Clark MD LAB BLOOD ORDERABLES Final R esult Performing Organization Address [facility] [place] [address] * Ionized calcium, whole blood (06/15/2025 6:40 AM EDT) Pathologist [facility] Ionized Calcium, Whole Blood 4.6 4.6 - 5.1 mg/dL LAB HEMATOLOGY METHOD 06/15/2025 6:50 AM EDT [facility] Blood Arterial blood specimen / Unknown Venipuncture / Unknown 06/15/2025 6:40 AM EDT 06/15/2025 6:48 AM EDT Phillip Clark MD LAB BLOOD ORDERABLES Final R esult Performing Organization Address [facility] [place] [address] * ECG Adult - POD 1 (06/15/2025 5:20 AM EDT) EKG DIAGNOSIS CLASS Abnormal MUSE ECG Ventricular Rate 71 BPM MUSE ECG Atrial Rate 71 BPM MUSE ECG RI Interval 182 ms MUSE ECG QRSD Interval 108 ms MUSE ECG QT Interval 418 ms MUSE ECG QTC Interval 454 ms MUSE ECG P [place] 51 degrees MUSE ECG R [place] -48 degrees MUSE ECG T Wave [place] -12 degrees MUSE ECG Diagnosis Normal sinus rhythm MUSE ECG Diagnosis Left anterior fascicular block MUSE ECG Diagnosis Abnormal ECG MUSE ECG Diagnosis MUSE ECG Diagnosis Confirmed by Bimal Brambila ([id number]) on 06/15/2025 11:38:57 AM MUSE ECG 06/15/2025 5:20 AM EDT 06/15/2025 11:38 AM EDT Phillip Clark MD ECG ORDERABLES Final Result MUSE ECG * (ABNORMAL) Blood gas panel, arterial (06/15/2025 3:58 AM EDT) pH, Arterial 7.39 7.31 - 7.42 LAB HEMATOLOGY METHOD 06/15/2025 4:06 AM EDT [facility] pCO2, Arterial 39 32 - 45 mmHg LAB HEMATOLOGY METHOD 06/15/2025 4:06 AM EDT [facility] pO2, Arterial 79(L) >80 mmHg LAB HEMATOLOGY METHOD 06/15/2025 4:06 AM EDT [facility] SO2, Measured, Arterial 97 94 - 98 % LAB HEMATOLOGY METHOD 06/15/2025 4:06 AM EDT [facility] Base Excess, Arterial -1.2 -2.0 - 3.0 mmol/L LAB HEMATOLOGY METHOD 06/15/2025 4:06 AM EDT [facility] Bicarbonate, Calculated, Arterial 24 22 - 26 mmol/L LAB HEMATOLOGY METHOD 06/15/2025 4:06 AM EDT [facility] Hematocrit, Whole Blood 39.7(L) 40.0 - 51.0 % LAB HEMATOLOGY METHOD 06/15/2025 4:06 AM EDT [facility] Sodium, Whole Blood 134(L) 136 - 145 mmol/L LAB HEMATOLOGY METHOD 06/15/2025 4:06 AM EDT [facility] Potassium, Whole Blood 4.4 3.6 - 4.9 mmol/L LAB HEMATOLOGY METHOD 06/15/2025 4:06 AM EDT [facility] Chloride, Whole Blood 108(H) 97 - 107 mmol/L LAB HEMATOLOGY METHOD 06/15/2025 4:06 AM EDT [facility] Glucose, Whole Blood 132(H) 74 - 99 mg/dL LAB HEMATOLOGY METHOD 06/15/2025 4:06 AM EDT [facility] Ionized Calcium, Whole Blood 4.5(L) 4.6 - 5.1 mg/dL LAB HEMATOLOGY METHOD 06/15/2025 4:06 AM EDT [facility] Lactate, Arterial, Whole Blood 0.9 0.5 - 1.6 mmol/L LAB HEMATOLOGY METHOD 06/15/2025 4:06 AM EDT [facility] Blood Arterial blood specimen / Unknown Arterial Puncture / Unknown 06/15/2025 3:58 AM EDT 06/15/2025 4:06 AM EDT us Phillip Clark MD LAB BLOOD ORDERABLES Final R esult [facility] [address] [place] [address] * XR Chest 1 View (06/15/2025 2:53 AM EDT) Anatomical Region Laterality Modality Chest Digital Radiogra phy Impressions 06/15/2025 8:47 AM EDT Interval extubation and removal of NG tube Otherwise no significant changes CRITICAL RESULT: No. COMMUNICATION: Per this written report. By electronically signing this report, I, the attending physician, attest that I have personally reviewed the images/data for the above examination(s) and agree with the final edited report. Drafted by Patel Taylor MD on 06/15/2025 8:29 AM Final report signed by Idania Edmonds MD on 06/15/2025 8:47 AM Narrative 06/15/2025 8:47 AM EDT CLINICAL INDICATION: Post-Op Cardiac Surgery TECHNIQUE: XR CHEST 1 VIEW COMPARISON: Chest radiograph 06/14/2025 FINDINGS: Enlarged cardiac silhouette stable status post median sternotomy. Interval extubation and removal of NG tube. Right internal jugular approach [place]-Shira catheter and mediastinal drain in unchanged position. No pneumothorax or pleural effusions. Ongoing interstitial edema. Procedure Note Idania Edmonds MD - 06/15/2025 CLINICAL INDICATION: Post-Op Cardiac Surgery TECHNIQUE: XR CHEST 1 VIEW COMPARISON: Chest radiograph 06/14/2025 FINDINGS: Enlarged cardiac silhouette stable status post median sternotomy. Intervalextubation and removal of NG tube. Right internal jugular approachSwan-Shira catheter and mediastinal drain in unchanged position. Nopneumothorax or pleural effusions. Ongoing interstitial edema. IMPRESSION: Interval extubation and removal of NG tube Otherwise no significant changes CRITICAL RESULT: No. COMMUNICATION: Per this written report. By electronically signing this report, I, the attending physician, radha I have personally reviewed the images/data for the aboveexamination(s) and agree with the final edited report. Drafted by Patel Taylor MD on 06/15/2025 8:29 AM Final report signed by Idania Edmonds MD on 06/15/2025 8:47 AM us Phillip Clark MD IMG XR PROCEDURES Final Resu lt * RI CRITICAL CARE, ADDL 30 MIN, RI CRITICAL CARE, ADDL 30 MIN (06/15/2025 12:21 AM EDT) Narrative Andres Narvaez MD - 06/15/2025 12:21 AM EDT Andres Narvaez MD 06/15/2025 12:23 AM Critical Care Performed by: Andres Narvaez MD Authorized by: Andres Narvaez MD Critical care provider statement: Critical care time (minutes): 66 Critical care time was exclusive of: Separately billable procedures and treating other patients and teaching time Critical care was time spent personally by me on the following activities: Development of treatment plan with patient or surrogate, ordering and performing treatments and interventions, ordering and review of laboratory studies, ordering and review of radiographic studies, evaluation of patient's response to treatment, examination of patient and obtaining history from patient or surrogate I assumed subsequent critical care for this patient from a provider in my division, on the same day: yes us Andres Narvaez MD IN CLINIC/BEDSIDE ORDERABLES Fin al Result * (ABNORMAL) WBC Differential (06/15/2025 12:20 AM EDT) Differential Type Automated LAB HEMATOLOGY METHOD 06/15/2025 8:17 AM EDT [facility] Neutrophils % 85 % LAB HEMATOLOGY METHOD 06/15/2025 8:17 AM EDT [facility] Lymphocytes % 4 % LAB HEMATOLOGY METHOD 06/15/2025 8:17 AM EDT [facility] Monocytes % 10 % LAB HEMATOLOGY METHOD 06/15/2025 8:17 AM EDT [facility] Eosinophils % 0 % LAB HEMATOLOGY METHOD 06/15/2025 8:17 AM EDT [facility] Basophils % 0 % LAB HEMATOLOGY METHOD 06/15/2025 8:17 AM EDT [facility] Immature Granulocytes % 1 % LAB HEMATOLOGY METHOD 06/15/2025 8:17 AM EDT [facility] Immature Granulocytes Absolute 0.05 0.00 - 0.06 10*3/uL LAB HEMATOLOGY METHOD 06/15/2025 8:17 AM EDT [facility] Neutrophils Absolute 9.28(H) 1.60 - 6.10 10*3/uL LAB HEMATOLOGY METHOD 06/15/2025 8:17 AM EDT [facility] Lymphocytes Absolute 0.45(L) 1.20 - 3.90 10*3/uL LAB HEMATOLOGY METHOD 06/15/2025 8:17 AM EDT [facility] Monocytes Absolute 1.14(H) 0.30 - 0.90 10*3/uL LAB HEMATOLOGY METHOD 06/15/2025 8:17 AM EDT [facility] Basophils Absolute 0.02 0.00 - 0.10 10*3/uL LAB HEMATOLOGY METHOD 06/15/2025 8:17 AM EDT [facility] Eosinophils Absolute 0.00 0.00 - 0.50 10*3/uL LAB HEMATOLOGY METHOD 06/15/2025 8:17 AM EDT [facility] Blood Venous blood specimen / Unknown Venipuncture / Unknown 06/15/2025 12:20 AM EDT 06/15/2025 12:26 AM EDT Phillip Clark MD LAB BLOOD ORDERABLES Final R esult [facility] [address] [place] [address] * Phosphorus (06/15/2025 12:20 AM EDT) Phosphorus, Plasma 2.6 2.5 - 4.5 mg/dL 06/15/2025 8:33 AM EDT [facility] Blood Venous blood specimen / Unknown Venipuncture / Unknown 06/15/2025 12:20 AM EDT 06/15/2025 12:26 AM EDT Phillip Clark MD LAB BLOOD ORDERABLES Final R esult [facility] [address] [place] [address] * (ABNORMAL) Magnesium (06/15/2025 12:20 AM EDT) Pathologist [facility] Magnesium, Plasma 2.5(H) 1.9 - 2.4 mg/dL 06/15/2025 7:37 AM EDT [facility] Blood Venous blood specimen / Unknown Venipuncture / Unknown 06/15/2025 12:20 AM EDT 06/15/2025 12:26 AM EDT us Phillip Clark MD LAB BLOOD ORDERABLES Final R esult Performing Organization Address City/[facility]/ZIP Co de Phone Number [facility] [address] [place] [address] * (ABNORMAL) Basic metabolic panel (06/15/2025 12:20 AM EDT) Glucose, Plasma 140(H) 74 - 99 mg/dL 06/15/2025 7:37 AM EDT [facility] BUN, Plasma 17 8 - 23 mg/dL 06/15/2025 7:37 AM EDT [facility] Creatinine, Plasma 0.84 0.70 - 1.20 mg/dL 06/15/2025 7:37 AM EDT [facility] BUN/Creatinine Ratio 20 06/15/2025 7:37 AM EDT [facility] Sodium, Plasma 138 136 - 145 mmol/L 06/15/2025 7:37 AM EDT [facility] Potassium, Plasma 4.6 3.6 - 4.9 mmol/L 06/15/2025 7:37 AM EDT [facility] Chloride, Plasma 107 97 - 107 mmol/L 06/15/2025 7:37 AM EDT [facility] CO2, Plasma 18(L) 22 - 29 mmol/L 06/15/2025 7:37 AM EDT [facility] Anion Gap 13 6 - 16 mmol/L 06/15/2025 7:37 AM EDT [facility] Total Calcium, Plasma 8.0(L) 8.9 - 10.2 mg/dL 06/15/2025 7:37 AM EDT [facility] eGFRcr 94.4 mL/min/1.7 3m*2 06/15/2025 7:37 AM EDT [facility] Comment:Reported eGFRcr in m L/min/1.73m2 is based the CKD-EPI 2020 equation that does not use a race coefficient. Blood Venous blood specimen / Unknown Venipuncture / Unknown 06/15/2025 12:20 AM EDT 06/15/2025 12:26 AM EDT us Phillip Clark MD LAB BLOOD ORDERABLES Final R esult [facility] [address] [place] [address] * (ABNORMAL) CBC W/O Differential (06/15/2025 12:20 AM EDT) WBC Count 10.94(H) 3.70 - 10.30 10*3/uL LAB HEMATOLOGY METHOD 06/15/2025 8:32 AM EDT [facility] RBC Count 4.94 4.60 - 6.10 10*6/uL LAB HEMATOLOGY METHOD 06/15/2025 8:32 AM EDT [facility] HGB 13.6(L) 13.7 - 17.5 g/dL LAB HEMATOLOGY METHOD 06/15/2025 8:32 AM EDT [facility] HCT 41.0 40.0 - 51.0 % LAB HEMATOLOGY METHOD 06/15/2025 8:32 AM EDT [facility] Platelet Count 142(L) 155 - 369 10*3/uL LAB HEMATOLOGY METHOD 06/15/2025 8:32 AM EDT [facility] MCV 87 79 - 98 fL LAB HEMATOLOGY METHOD 06/15/2025 8:32 AM EDT [facility] MCH 27.5 26.0 - 32.0 pg LAB HEMATOLOGY METHOD 06/15/2025 8:32 AM EDT [facility] MCHC 31.8 30.7 - 35.5 g/dL LAB HEMATOLOGY METHOD 06/15/2025 8:32 AM EDT [facility] RDW 15.6(H) 11.5 - 14.5 % LAB HEMATOLOGY METHOD 06/15/2025 8:32 AM EDT [facility] MPV 11.1 8.8 - 12.5 fL LAB HEMATOLOGY METHOD 06/15/2025 8:32 AM EDT [facility] nRBC 0.0 <=0.0 per 100 WBCs LAB HEMATOLOGY METHOD 06/15/2025 8:32 AM EDT [facility] Blood Venous blood specimen / Unknown Venipuncture / Unknown 06/15/2025 12:20 AM EDT 06/15/2025 12:26 AM EDT us Phillip Clark MD LAB BLOOD ORDERABLES Final R esult Performing Organization Address City/[facility]/ZIP Co de Phone Number [facility] [address] [place] [address] * Potassium, Plasma (06/15/2025 12:20 AM EDT) Potassium, Plasma 4.5 3.6 - 4.9 mmol/L 06/15/2025 12:51 AM EDT [facility] Blood Venous blood specimen / Unknown Venipuncture / Unknown 06/15/2025 12:20 AM EDT 06/15/2025 12:26 AM EDT us Phillip Clark MD LAB BLOOD ORDERABLES Final R esult Performing Organization Address City/[facility]/ZIP Co de Phone Number [facility] [address] [place] [address] * Hematocrit (06/15/2025 12:20 AM EDT) HCT 41.0 40.0 - 51.0 % LAB HEMATOLOGY METHOD 06/15/2025 12:36 AM EDT [facility] Blood Venous blood specimen / Unknown Venipuncture / Unknown 06/15/2025 12:20 AM EDT 06/15/2025 12:26 AM EDT Phillip Clark MD LAB BLOOD ORDERABLES Final R esult [facility] [address] [place] [address] * (ABNORMAL) Hemoglobin (06/15/2025 12:20 AM EDT) HGB 13.6(L) 13.7 - 17.5 g/dL LAB HEMATOLOGY METHOD 06/15/2025 12:36 AM EDT [facility] Blood Venous blood specimen / Unknown Venipuncture / Unknown 06/15/2025 12:20 AM EDT 06/15/2025 12:26 AM EDT us Phillip Clark MD LAB BLOOD ORDERABLES Final R esult Performing Organization Address City/[facility]/ZIP Co de Phone Number [facility] [address] [place] [address] * (ABNORMAL) Blood gas, arterial (06/15/2025 12:20 AM EDT) Pathologist [facility] pH, Arterial 7.37 7.31 - 7.42 LAB HEMATOLOGY METHOD 06/15/2025 12:37 AM EDT [facility] pCO2, Arterial 40 32 - 45 mmHg LAB HEMATOLOGY METHOD 06/15/2025 12:37 AM EDT [facility] pO2, Arterial 65(L) >80 mmHg LAB HEMATOLOGY METHOD 06/15/2025 12:37 AM EDT [facility] SO2, Measured, Arterial 94 94 - 98 % LAB HEMATOLOGY METHOD 06/15/2025 12:37 AM EDT [facility] Base Excess, Arterial -1.8 -2.0 - 3.0 mmol/L LAB HEMATOLOGY METHOD 06/15/2025 12:37 AM EDT [facility] Bicarbonate, Calculated, Arterial 23 22 - 26 mmol/L LAB HEMATOLOGY METHOD 06/15/2025 12:37 AM EDT [facility] Hematocrit, Whole Blood 41.1 40.0 - 51.0 % LAB HEMATOLOGY METHOD 06/15/2025 12:37 AM EDT [facility] Sodium, Whole Blood 137 136 - 145 mmol/L LAB HEMATOLOGY METHOD 06/15/2025 12:37 AM EDT [facility] Potassium, Whole Blood 4.2 3.6 - 4.9 mmol/L LAB HEMATOLOGY METHOD 06/15/2025 12:37 AM EDT [facility] Chloride, Whole Blood 110(H) 97 - 107 mmol/L LAB HEMATOLOGY METHOD 06/15/2025 12:37 AM EDT [facility] Glucose, Whole Blood 140(H) 74 - 99 mg/dL LAB HEMATOLOGY METHOD 06/15/2025 12:37 AM EDT [facility] Ionized Calcium, Whole Blood 4.5(L) 4.6 - 5.1 mg/dL LAB HEMATOLOGY METHOD 06/15/2025 12:37 AM EDT [facility] Lactate, Arterial, Whole Blood 1.8(H) 0.5 - 1.6 mmol/L LAB HEMATOLOGY METHOD 06/15/2025 12:37 AM EDT [facility] Blood Arterial blood specimen / Unknown Arterial Puncture / Unknown 06/15/2025 12:20 AM EDT 06/15/2025 12:34 AM EDT us Phillip Clark MD LAB BLOOD ORDERABLES Final R esult [facility] [address] [place] [address] * (ABNORMAL) Blood gas, arterial (06/14/2025 8:04 PM EDT) pH, Arterial 7.35 7.31 - 7.42 LAB HEMATOLOGY METHOD 06/14/2025 8:19 PM EDT [facility] pCO2, Arterial 39 32 - 45 mmHg LAB HEMATOLOGY METHOD 06/14/2025 8:19 PM EDT [facility] pO2, Arterial 88 >80 mmHg LAB HEMATOLOGY METHOD 06/14/2025 8:19 PM EDT [facility] SO2, Measured, Arterial 98 94 - 98 % LAB HEMATOLOGY METHOD 06/14/2025 8:19 PM EDT [facility] Base Excess, Arterial -3.7(L) -2.0 - 3.0 mmol/L LAB HEMATOLOGY METHOD 06/14/2025 8:19 PM EDT [facility] Bicarbonate, Calculated, Arterial 22 22 - 26 mmol/L LAB HEMATOLOGY METHOD 06/14/2025 8:19 PM EDT [facility] Hematocrit, Whole Blood 44.7 40.0 - 51.0 % LAB HEMATOLOGY METHOD 06/14/2025 8:19 PM EDT [facility] Sodium, Whole Blood 138 136 - 145 mmol/L LAB HEMATOLOGY METHOD 06/14/2025 8:19 PM EDT [facility] Potassium, Whole Blood 4.5 3.6 - 4.9 mmol/L LAB HEMATOLOGY METHOD 06/14/2025 8:19 PM EDT [facility] Chloride, Whole Blood 109(H) 97 - 107 mmol/L LAB HEMATOLOGY METHOD 06/14/2025 8:19 PM EDT [facility] Glucose, Whole Blood 185(H) 74 - 99 mg/dL LAB HEMATOLOGY METHOD 06/14/2025 8:19 PM EDT [facility] Ionized Calcium, Whole Blood 4.5(L) 4.6 - 5.1 mg/dL LAB HEMATOLOGY METHOD 06/14/2025 8:19 PM EDT [facility] Lactate, Arterial, Whole Blood 3.0(H) 0.5 - 1.6 mmol/L LAB HEMATOLOGY METHOD 06/14/2025 8:19 PM EDT [facility] Blood Arterial blood specimen / Unknown Arterial Puncture / Unknown 06/14/2025 8:04 PM EDT 06/14/2025 8:14 PM EDT us Phillip Clark MD LAB BLOOD ORDERABLES Final R esult Performing Organization Address City/[facility]/ZIP Co de Phone Number [facility] [address] [place] [address] * Potassium (06/14/2025 8:03 PM EDT) Potassium, Plasma 4.9 3.6 - 4.9 mmol/L 06/14/2025 8:33 PM EDT [facility] Blood Arterial blood specimen / Unknown Venipuncture / Unknown 06/14/2025 8:03 PM EDT 06/14/2025 8:11 PM EDT Phillip Clark MD LAB BLOOD ORDERABLES Final R esult [facility] [address] [place] [address] * (ABNORMAL) Magnesium (06/14/2025 8:03 PM EDT) Magnesium, Plasma 2.7(H) 1.9 - 2.4 mg/dL 06/14/2025 8:40 PM EDT [facility] Blood Arterial blood specimen / Unknown Venipuncture / Unknown 06/14/2025 8:03 PM EDT 06/14/2025 8:11 PM EDT us Phillip Clark MD LAB BLOOD ORDERABLES Final R esult [facility] [address] [place] [address] * (ABNORMAL) CBC (06/14/2025 8:03 PM EDT) WBC Count 13.98(H) 3.70 - 10.30 10*3/uL LAB HEMATOLOGY METHOD 06/14/2025 8:20 PM EDT [facility] RBC Count 5.14 4.60 - 6.10 10*6/uL LAB HEMATOLOGY METHOD 06/14/2025 8:20 PM EDT [facility] HGB 14.5 13.7 - 17.5 g/dL LAB HEMATOLOGY METHOD 06/14/2025 8:20 PM EDT [facility] HCT 43.9 40.0 - 51.0 % LAB HEMATOLOGY METHOD 06/14/2025 8:20 PM EDT [facility] Platelet Count 158 155 - 369 10*3/uL LAB HEMATOLOGY METHOD 06/14/2025 8:20 PM EDT [facility] MCV 85 79 - 98 fL LAB HEMATOLOGY METHOD 06/14/2025 8:20 PM EDT [facility] MCH 28.2 26.0 - 32.0 pg LAB HEMATOLOGY METHOD 06/14/2025 8:20 PM EDT [facility] MCHC 33.0 30.7 - 35.5 g/dL LAB HEMATOLOGY METHOD 06/14/2025 8:20 PM EDT [facility] RDW 14.9(H) 11.5 - 14.5 % LAB HEMATOLOGY METHOD 06/14/2025 8:20 PM EDT [facility] MPV 10.8 8.8 - 12.5 fL LAB HEMATOLOGY METHOD 06/14/2025 8:20 PM EDT [facility] nRBC 0.0 <=0.0 per 100 WBCs LAB HEMATOLOGY METHOD 06/14/2025 8:20 PM EDT [facility] Blood Arterial blood specimen / Unknown Venipuncture / Unknown 06/14/2025 8:03 PM EDT 06/14/2025 8:11 PM EDT us Phillip Clark MD LAB BLOOD ORDERABLES Final R esult [facility] [address] [place] [address] * (ABNORMAL) Basic metabolic panel (06/14/2025 8:03 PM EDT) Glucose, Plasma 194(H) 74 - 99 mg/dL 06/14/2025 8:40 PM EDT [facility] BUN, Plasma 16 8 - 23 mg/dL 06/14/2025 8:40 PM EDT [facility] Creatinine, Plasma 0.85 0.70 - 1.20 mg/dL 06/14/2025 8:40 PM EDT [facility] BUN/Creatinine Ratio 19 06/14/2025 8:40 PM EDT [facility] Sodium, Plasma 139 136 - 145 mmol/L 06/14/2025 8:40 PM EDT [facility] Potassium, Plasma 5.0(H) 3.6 - 4.9 mmol/L 06/14/2025 8:40 PM EDT [facility] Chloride, Plasma 109(H) 97 - 107 mmol/L 06/14/2025 8:40 PM EDT [facility] CO2, Plasma 20(L) 22 - 29 mmol/L 06/14/2025 8:40 PM EDT [facility] Anion Gap 10 6 - 16 mmol/L 06/14/2025 8:40 PM EDT [facility] Total Calcium, Plasma 8.2(L) 8.9 - 10.2 mg/dL 06/14/2025 8:40 PM EDT [facility] eGFRcr 94.1 mL/min/1.7 3m*2 06/14/2025 8:40 PM EDT [facility] Comment:Reported eGFRcr in m L/min/1.73m2 is based the CKD-EPI 2020 equation that does not use a race coefficient. Blood Arterial blood specimen / Unknown Venipuncture / Unknown 06/14/2025 8:03 PM EDT 06/14/2025 8:11 PM EDT us Phillip Clark MD LAB BLOOD ORDERABLES Final R esult [facility] [address] [place] [address] * (ABNORMAL) Blood gas panel, arterial (06/14/2025 6:47 PM EDT) pH, Arterial 7.30(L) 7.31 - 7.42 LAB HEMATOLOGY METHOD 06/14/2025 6:57 PM EDT [facility] pCO2, Arterial 41 32 - 45 mmHg LAB HEMATOLOGY METHOD 06/14/2025 6:57 PM EDT [facility] pO2, Arterial 70(L) >80 mmHg LAB HEMATOLOGY METHOD 06/14/2025 6:57 PM EDT [facility] SO2, Measured, Arterial 94 94 - 98 % LAB HEMATOLOGY METHOD 06/14/2025 6:57 PM EDT [facility] Base Excess, Arterial -5.6(L) -2.0 - 3.0 mmol/L LAB HEMATOLOGY METHOD 06/14/2025 6:57 PM EDT [facility] Bicarbonate, Calculated, Arterial 21(L) 22 - 26 mmol/L LAB HEMATOLOGY METHOD 06/14/2025 6:57 PM EDT [facility] Hematocrit, Whole Blood 45.5 40.0 - 51.0 % LAB HEMATOLOGY METHOD 06/14/2025 6:57 PM EDT [facility] Sodium, Whole Blood 138 136 - 145 mmol/L LAB HEMATOLOGY METHOD 06/14/2025 6:57 PM EDT [facility] Potassium, Whole Blood 4.4 3.6 - 4.9 mmol/L LAB HEMATOLOGY METHOD 06/14/2025 6:57 PM EDT [facility] Chloride, Whole Blood 109(H) 97 - 107 mmol/L LAB HEMATOLOGY METHOD 06/14/2025 6:57 PM EDT [facility] Glucose, Whole Blood 209(H) 74 - 99 mg/dL LAB HEMATOLOGY METHOD 06/14/2025 6:57 PM EDT [facility] Ionized Calcium, Whole Blood 4.6 4.6 - 5.1 mg/dL LAB HEMATOLOGY METHOD 06/14/2025 6:57 PM EDT [facility] Lactate, Arterial, Whole Blood 3.9(H) 0.5 - 1.6 mmol/L LAB HEMATOLOGY METHOD 06/14/2025 6:57 PM EDT [facility] Blood Arterial blood specimen / Unknown Arterial Puncture / Unknown 06/14/2025 6:47 PM EDT 06/14/2025 6:56 PM EDT us Phillip Clark MD LAB BLOOD ORDERABLES Final R esult Performing Organization Address City/State/[facility] Co de Phone Number [facility] [address] [place] [address] * RI CRITICAL CARE, E/M 30-74 MINUTES (06/14/2025 5:35 PM EDT) Narrative Belle Smith MD - 06/14/2025 5:35 PM EDT Belle Smith MD 06/15/2025 1:41 PM Critical Care Performed by: Belle Smith MD Authorized by: Belle Smith MD Critical care provider statement: Critical care time (minutes): 39 Critical care time was exclusive of: Separately billable procedures and treating other patients and teaching time Critical care was time spent personally by me on the following activities: Development of treatment plan with patient or surrogate, ordering and performing treatments and interventions, discussions with consultants, ordering and review of laboratory studies, discussions with primary provider, ordering and review of radiographic studies, evaluation of patient's response to treatment, examination of patient and ventilator management Critical care statement: I saw and evaluated the patient with the resident/ fellow. I discussed the case with the resident/ fellow and agree with the findings and plan as documented. us Belle Smith MD IN CLINIC/BEDSIDE ORDERABLES Final Result * (ABNORMAL) Blood gas, arterial (06/14/2025 3:57 PM EDT) pH, Arterial 7.29(L) 7.31 - 7.42 LAB HEMATOLOGY METHOD 06/14/2025 4:12 PM EDT [facility] pCO2, Arterial 43 32 - 45 mmHg LAB HEMATOLOGY METHOD 06/14/2025 4:12 PM EDT [facility] pO2, Arterial 126 >80 mmHg LAB HEMATOLOGY METHOD 06/14/2025 4:12 PM EDT [facility] SO2, Measured, Arterial 99(H) 94 - 98 % LAB HEMATOLOGY METHOD 06/14/2025 4:12 PM EDT [facility] Base Excess, Arterial -5.8(L) -2.0 - 3.0 mmol/L LAB HEMATOLOGY METHOD 06/14/2025 4:12 PM EDT [facility] Bicarbonate, Calculated, Arterial 21(L) 22 - 26 mmol/L LAB HEMATOLOGY METHOD 06/14/2025 4:12 PM EDT [facility] Hematocrit, Whole Blood 43.9 40.0 - 51.0 % LAB HEMATOLOGY METHOD 06/14/2025 4:12 PM EDT [facility] Sodium, Whole Blood 139 136 - 145 mmol/L LAB HEMATOLOGY METHOD 06/14/2025 4:12 PM EDT [facility] Potassium, Whole Blood 3.8 3.6 - 4.9 mmol/L LAB HEMATOLOGY METHOD 06/14/2025 4:12 PM EDT [facility] Chloride, Whole Blood 109(H) 97 - 107 mmol/L LAB HEMATOLOGY METHOD 06/14/2025 4:12 PM EDT [facility] Glucose, Whole Blood 179(H) 74 - 99 mg/dL LAB HEMATOLOGY METHOD 06/14/2025 4:12 PM EDT [facility] Ionized Calcium, Whole Blood 4.6 4.6 - 5.1 mg/dL LAB HEMATOLOGY METHOD 06/14/2025 4:12 PM EDT [facility] Lactate, Arterial, Whole Blood 4.3(H) 0.5 - 1.6 mmol/L LAB HEMATOLOGY METHOD 06/14/2025 4:12 PM EDT [facility] Blood Arterial blood specimen / Unknown Arterial Puncture / Unknown 06/14/2025 3:57 PM EDT 06/14/2025 4:11 PM EDT us Phillip Clark MD LAB BLOOD ORDERABLES Final R esult [facility] [address] [place] [address] * (ABNORMAL) Blood gas panel with oximetry, mixed venous (06/14/2025 3:00 PM EDT) pH, Mixed Venous 7.28(L) 7.32 - 7.43 LAB HEMATOLOGY METHOD 06/14/2025 3:24 PM EDT [facility] pCO2, Mixed Venous 47 40 - 55 mmHg LAB HEMATOLOGY METHOD 06/14/2025 3:24 PM EDT [facility] pO2, Mixed Venous 54(H) 25 - 40 mmHg LAB HEMATOLOGY METHOD 06/14/2025 3:24 PM EDT [facility] SO2, Measured, Mixed Venous 84(H) 65 - 80 % LAB HEMATOLOGY METHOD 06/14/2025 3:24 PM EDT [facility] Bicarbonate, Calculated, Mixed Venous 22 22 - 26 mmol/L LAB HEMATOLOGY METHOD 06/14/2025 3:24 PM EDT [facility] Base Excess, Mixed Venous -4.7(L) -2.0 - 3.0 mmol/L LAB HEMATOLOGY METHOD 06/14/2025 3:24 PM EDT [facility] Hematocrit, Whole Blood 43.0 40.0 - 51.0 % LAB HEMATOLOGY METHOD 06/14/2025 3:24 PM EDT [facility] Sodium, Whole Blood 139 136 - 145 mmol/L LAB HEMATOLOGY METHOD 06/14/2025 3:24 PM EDT [facility] Potassium, Whole Blood 3.7 3.6 - 4.9 mmol/L LAB HEMATOLOGY METHOD 06/14/2025 3:24 PM EDT [facility] Chloride, Whole Blood 110(H) 97 - 107 mmol/L LAB HEMATOLOGY METHOD 06/14/2025 3:24 PM EDT [facility] Ionized Calcium, Whole Blood 4.6 4.6 - 5.1 mg/dL LAB HEMATOLOGY METHOD 06/14/2025 3:24 PM EDT [facility] Glucose, Whole Blood 149(H) 74 - 99 mg/dL LAB HEMATOLOGY METHOD 06/14/2025 3:24 PM EDT [facility] Oxyhemoglobin, Mixed Venous, Whole Blood 81.9(H) 40.0 - 70.0 % LAB HEMATOLOGY METHOD 06/14/2025 3:24 PM EDT [facility] Hemoglobin Reduced, Mixed Venous, Whole Blood 16.1 % LAB HEMATOLOGY METHOD 06/14/2025 3:24 PM EDT [facility] Total Hemoglobin, Mixed Venous, Whole Blood 14.0 13.7 - 17.5 g/dL LAB HEMATOLOGY METHOD 06/14/2025 3:24 PM EDT [facility] Blood Mixed venous blood specimen / Unknown Venipuncture / Unknown 06/14/2025 3:00 PM EDT 06/14/2025 3:23 PM EDT us Phillip Clark MD LAB BLOOD ORDERABLES Final R esult [facility] [address] [place] [address] * XR Abdomen 1 View (06/14/2025 2:57 PM EDT) Anatomical Region Laterality Modality Body Digital Radiogra phy Impressions 06/14/2025 3:32 PM EDT NG tube tip mid stomach. Nonobstructive bowel gas pattern. CRITICAL RESULT: No. COMMUNICATION: Per this written report. Drafted by Tima Conteh MD on 06/14/2025 3:30 PM Final report signed by Tima Conteh MD on 06/14/2025 3:32 PM Narrative 06/14/2025 3:32 PM EDT CLINICAL INDICATION: routine TECHNIQUE: XR ABDOMEN 1 VIEW COMPARISON: Chest x-ray 06/14/2025 same time, chest x-ray 06/09/2025. FINDINGS: NG tube tip mid stomach. Moderate diffuse gas and fecal material throughout the visualized nondilated colon. Moderate gas within nondilated small bowel. No pneumatosis or pneumoperitoneum evident. Post median sternotomy. Procedure Note Tima Conteh MD - 06/14/2025 CLINICAL INDICATION: routine TECHNIQUE: XR ABDOMEN 1 VIEW COMPARISON: Chest x-ray 06/14/2025 same time, chest x-ray 06/09/2025. FINDINGS: NG tube tip mid stomach. Moderate diffuse gas and fecal material throughout the visualizednondilated colon. Moderate gas within nondilated small bowel. Nopneumatosis or pneumoperitoneum evident. Post median sternotomy. IMPRESSION: NG tube tip mid stomach. Nonobstructive bowel gas pattern. CRITICAL RESULT: No. COMMUNICATION: Per this written report. Drafted by Tima Conteh MD on 06/14/2025 3:30 PM Final report signed by Tima Conteh MD on 06/14/2025 3:32 PM us Phillip Clark MD IMG XR PROCEDURES Final Resu lt * XR Chest 1 View (06/14/2025 2:57 PM EDT) Anatomical Region Laterality Modality Chest Digital Radiogra phy Impressions 06/14/2025 3:17 PM EDT Low lung volumes with bibasilar atelectasis. Appropriately positioned endotracheal tube. Interval placement of an esophagogastric tube, pulmonary artery catheter, and mediastinal drain. CRITICAL RESULT: No. COMMUNICATION: Per this written report. By electronically signing this report, I, the attending physician, attest that I have personally reviewed the images/data for the above examination(s) and agree with the final edited report. Drafted by Sridhar Salmon MD on 06/14/2025 2:57 PM Final report signed by Kamran Arellano MD on 06/14/2025 3:17 PM Narrative 06/14/2025 3:17 PM EDT CLINICAL INDICATION: Postop cardiac surgery TECHNIQUE: XR CHEST 1 VIEW COMPARISON: Chest x-ray 06/09/2025 FINDINGS: Endotracheal tube terminates approximately 2.1 cm above the jeremy. Interval placement of an esophagogastric tube, mediastinal drain, and right internal jugular sheath and pulmonary artery catheter. 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 Low lung volumes with bibasilar atelectasis. No pleural effusion or significant pneumothorax. Procedure Note Kamran Arellano MD - 06/14/2025 CLINICAL INDICATION: Postop cardiac surgery TECHNIQUE: XR CHEST 1 VIEW COMPARISON: Chest x-ray 06/09/2025 FINDINGS: Endotracheal tube terminates approximately 2.1 cm above the jeremy.Interval placement of an esophagogastric tube, mediastinal drain, andright internal jugular sheath and pulmonary artery catheter. Stableenlarged cardiomediastinal silhouette, now post median sternotomy withprosthetic aortic valve projecting over the heart. Low lung volumes withbibasilar atelectasis. No pleural effusion or significant pneumothorax. IMPRESSION: Low lung volumes with bibasilar atelectasis. Appropriately positioned endotracheal tube. Interval placement of anesophagogastric tube, pulmonary artery catheter, and mediastinal drain. CRITICAL RESULT: No. COMMUNICATION: Per this written report. By electronically signing this report, I, the attending physician, attestthat I have personally reviewed the images/data for the aboveexamination(s) and agree with the final edited report. Drafted by Sridhar Salmon MD on 06/14/2025 2:57 PM Final report signed by Kamran Arellano MD on 06/14/2025 3:17 PM us Phillip Clark MD IMG XR PROCEDURES Final Resu lt * Mallika auris Surveillance by PCR (06/14/2025 2:37 PM EDT) Mallika auris PCR Result Not Detected Not Detected 06/15/2025 12:46 PM EDT [facility] Swab (Axilla and Groin) Non-blood Collection / Unknown 06/14/2025 2:37 PM EDT 06/14/2025 3:10 PM EDT Narrative [facility] - 06/15/2025 12:46 PM EDT This PCR assay was developed and its performance characteristics determined by [facility] as appropriate for clinical purposes. This assay has not been cleared or approved by the FDA, but is performed in a CLIA regulated laboratory that is qualified to perform high-complexity testing. us Phillip Clark MD LAB MICROBIOLOGY - GENERAL O RDERABLES Final Result [facility] [address] [place] [address] * Multi Drug Resistance Test (06/14/2025 2:37 PM EDT) Pathologist [facility] Culture No growth at day 1 06/15/2025 4:03 PM EDT [facility] Swab (Nares and Smita Rectal) Non-blood Collection / Unknown 06/14/2025 2:37 PM EDT 06/14/2025 3:10 PM EDT Narrative [facility] - 06/15/2025 4:03 PM EDT This test was developed and its performance characteristics determined by the [facility]. Although the media is FDA-approved, it is not FDA-approved for all specimen types submitted. The FDA has determined that such clearance or approval is not necessary. This test is used for surveillance purposes. It should not be regarded as investigational or for research. The [facility] is certified under the Clinical Laboratory Improvement Amendments of 1988 (CLIA-88) as qualified to perform high complexity clinical laboratory testing. Phillip Clark MD LAB MICROBIOLOGY - GENERAL O RDERABLES Final Result Performing Organization Address [facility] Co de Phone Number [facility] [address] [place] [address] * (ABNORMAL) Blood gas, arterial (06/14/2025 2:37 PM EDT) pH, Arterial 7.31 7.31 - 7.42 LAB HEMATOLOGY METHOD 06/14/2025 2:58 PM EDT [facility] pCO2, Arterial 42 32 - 45 mmHg LAB HEMATOLOGY METHOD 06/14/2025 2:58 PM EDT [facility] pO2, Arterial 154 >80 mmHg LAB HEMATOLOGY METHOD 06/14/2025 2:58 PM EDT [facility] SO2, Measured, Arterial 100(H) 94 - 98 % LAB HEMATOLOGY METHOD 06/14/2025 2:58 PM EDT [facility] Base Excess, Arterial -5.1(L) -2.0 - 3.0 mmol/L LAB HEMATOLOGY METHOD 06/14/2025 2:58 PM EDT [facility] Bicarbonate, Calculated, Arterial 21(L) 22 - 26 mmol/L LAB HEMATOLOGY METHOD 06/14/2025 2:58 PM EDT [facility] Hematocrit, Whole Blood 43.5 40.0 - 51.0 % LAB HEMATOLOGY METHOD 06/14/2025 2:58 PM EDT [facility] Sodium, Whole Blood 139 136 - 145 mmol/L LAB HEMATOLOGY METHOD 06/14/2025 2:58 PM EDT [facility] Potassium, Whole Blood 3.6 3.6 - 4.9 mmol/L LAB HEMATOLOGY METHOD 06/14/2025 2:58 PM EDT [facility] Chloride, Whole Blood 110(H) 97 - 107 mmol/L LAB HEMATOLOGY METHOD 06/14/2025 2:58 PM EDT [facility] Glucose, Whole Blood 131(H) 74 - 99 mg/dL LAB HEMATOLOGY METHOD 06/14/2025 2:58 PM EDT [facility] Ionized Calcium, Whole Blood 4.7 4.6 - 5.1 mg/dL LAB HEMATOLOGY METHOD 06/14/2025 2:58 PM EDT [facility] Lactate, Arterial, Whole Blood 5.0(H) 0.5 - 1.6 mmol/L LAB HEMATOLOGY METHOD 06/14/2025 2:58 PM EDT [facility] Blood Arterial blood specimen / Unknown Arterial Puncture / Unknown 06/14/2025 2:37 PM EDT 06/14/2025 2:57 PM EDT us Phillip Clark MD LAB BLOOD ORDERABLES Final R esult [facility] [address] [place] [address] * ECG Adult - Upon Admissoin to CVICU (06/14/2025 2:36 PM EDT) EKG DIAGNOSIS CLASS Abnormal MUSE ECG Ventricular Rate 61 BPM MUSE ECG Atrial Rate 61 BPM MUSE ECG RI Interval 176 ms MUSE ECG QRSD Interval 154 ms MUSE ECG QT Interval 520 ms MUSE ECG QTC Interval 523 ms MUSE ECG P [place] 58 degrees MUSE ECG R [place] 113 degrees MUSE ECG T Wave [place] -67 degrees MUSE ECG Diagnosis Sinus rhythm with occasional ventricular-paced complexes MUSE ECG Diagnosis Suspect unspecified pacemaker failure MUSE ECG Diagnosis Nonspecific intraventricular block MUSE ECG Diagnosis Minimal voltage criteria for LVH, may be normal variant ( Alek product ) MUSE ECG Diagnosis Abnormal ECG MUSE ECG Diagnosis MUSE ECG Diagnosis Confirmed by Brenton Mejia ([id number]) on 06/14/2025 3:39:18 PM MUSE ECG 06/14/2025 2:36 PM EDT 06/14/2025 3:39 PM EDT Phillip Clark MD ECG ORDERABLES Final Result Performing Organization Address City/[facility]/ZIP Co de Phone Number MUSE ECG * Potassium, Plasma (06/14/2025 2:36 PM EDT) [facility] Potassium, Plasma 3.8 3.6 - 4.9 mmol/L 06/14/2025 4:13 PM EDT [facility] Comment:Hemolyzed, result ma y be falsely increased. Blood Venous blood specimen / Unknown Venipuncture / Unknown 06/14/2025 2:36 PM EDT 06/14/2025 3:20 PM EDT Phillip Clark MD LAB BLOOD ORDERABLES Final R esult Performing Organization Address [facility] Co de Phone Number [facility] [address] [place] [address] * Hematocrit (06/14/2025 2:36 PM EDT) [facility] HCT 42.6 40.0 - 51.0 % LAB HEMATOLOGY METHOD 06/14/2025 4:38 PM EDT [facility] Blood Venous blood specimen / Unknown Venipuncture / Unknown 06/14/2025 2:36 PM EDT 06/14/2025 4:17 PM EDT Phillip Clark MD LAB BLOOD ORDERABLES Final R esult Performing Organization Address City/[facility] Co de Phone Number [facility] [address] [place] [address] * Hemoglobin (06/14/2025 2:36 PM EDT) Pathologist [facility] HGB 13.9 13.7 - 17.5 g/dL LAB HEMATOLOGY METHOD 06/14/2025 4:38 PM EDT [facility] Blood Venous blood specimen / Unknown Venipuncture / Unknown 06/14/2025 2:36 PM EDT 06/14/2025 4:17 PM EDT Phillip Clark MD LAB BLOOD ORDERABLES Final R esult Performing Organization Address City/[facility]/ZIP Co de Phone Number [facility] [address] [place] [address] * APTT (06/14/2025 2:36 PM EDT) [facility] aPTT 29 25 - 35 sec LAB COAGULATION METHOD 06/14/2025 4:11 PM EDT [facility] Blood Venous blood specimen / Unknown Venipuncture / Unknown 06/14/2025 2:36 PM EDT 06/14/2025 3:18 PM EDT Phillip Clark MD LAB BLOOD ORDERABLES Final R esult Performing Organization Address [facility] de Phone Number [facility] [address] [place] [address] * (ABNORMAL) Protime-INR (06/14/2025 2:36 PM EDT) [facility] Prothrombin Time 16.6(H) 12.0 - 14.3 sec LAB COAGULATION METHOD 06/14/2025 4:11 PM EDT [facility] INR 1.3(H) 0.9 - 1.1 LAB COAGULATION METHOD 06/14/2025 4:11 PM EDT [facility] Blood Venous blood specimen / Unknown Venipuncture / Unknown 06/14/2025 2:36 PM EDT 06/14/2025 3:18 PM EDT Narrative [facility] - 06/14/2025 4:11 PM EDT OPTIMAL INR RANGES FOR PATIENT ON ORAL ANTICOAGULANT THERAPY Prevention of venous thromboembolism INR 2.0 to 3.0 In patients with heart disease: Atrial fibrillation INR 2.0 to 3.0 Valvular heart disease INR 2.0 to 3.0 Tissue heart valves INR 2.0 to 3.0 Mechanical prosthetic valves INR 2.5 to 3.5 Prevention of recurrent PR INR 2.5 to 3.5 Phillip Clark MD LAB BLOOD ORDERABLES Final R esult Performing Organization Address City/[facility]/ZIP Co de Phone Number [facility] [address] [place] [address] * (ABNORMAL) Phosphorus (06/14/2025 2:36 PM EDT) Phosphorus, Plasma 2.3(L) 2.5 - 4.5 mg/dL 06/14/2025 4:13 PM EDT [facility] Blood Venous blood specimen / Unknown Venipuncture / Unknown 06/14/2025 2:36 PM EDT 06/14/2025 3:20 PM EDT Phillip Clark MD LAB BLOOD ORDERABLES Final R esult Performing Organization Address [facility] Co de Phone Number [facility] [address] [place] [address] * (ABNORMAL) Magnesium (06/14/2025 2:36 PM EDT) Magnesium, Plasma 3.2(H) 1.9 - 2.4 mg/dL 06/14/2025 6:55 PM EDT [facility] Blood Venous blood specimen / Unknown Venipuncture / Unknown 06/14/2025 2:36 PM EDT 06/14/2025 3:20 PM EDT Phillip Clark MD LAB BLOOD ORDERABLES Final R esult Performing Organization Address City/[facility]/ZIP Co de Phone Number [facility] [address] [place] [address] * (ABNORMAL) Basic metabolic panel (06/14/2025 2:36 PM EDT) Glucose, Plasma 134(H) 74 - 99 mg/dL 06/14/2025 4:13 PM EDT [facility] BUN, Plasma 14 8 - 23 mg/dL 06/14/2025 4:13 PM EDT [facility] Creatinine, Plasma 0.83 0.70 - 1.20 mg/dL 06/14/2025 4:13 PM EDT [facility] BUN/Creatinine Ratio 17 06/14/2025 4:13 PM EDT [facility] Sodium, Plasma 140 136 - 145 mmol/L 06/14/2025 4:13 PM EDT [facility] Potassium, Plasma 3.8 3.6 - 4.9 mmol/L 06/14/2025 4:13 PM EDT [facility] Comment:Hemolyzed, result ma y be falsely increased. Chloride, Plasma 108(H) 97 - 107 mmol/L 06/14/2025 4:13 PM EDT [facility] CO2, Plasma 19(L) 22 - 29 mmol/L 06/14/2025 4:13 PM EDT [facility] Anion Gap 13 6 - 16 mmol/L 06/14/2025 4:13 PM EDT [facility] Total Calcium, Plasma 8.3(L) 8.9 - 10.2 mg/dL 06/14/2025 4:13 PM EDT [facility] eGFRcr 94.7 mL/min/1.7 3m*2 06/14/2025 4:13 PM EDT [facility] Comment:Reported eGFRcr in m L/min/1.73m2 is based the CKD-EPI 2020 equation that does not use a race coefficient. Blood Venous blood specimen / Unknown Venipuncture / Unknown 06/14/2025 2:36 PM EDT 06/14/2025 3:20 PM EDT us Phillip Clark MD LAB BLOOD ORDERABLES Final R esult [facility] [address] [place] [address] * (ABNORMAL) CBC (06/14/2025 2:36 PM EDT) WBC Count 15.83(H) 3.70 - 10.30 10*3/uL LAB HEMATOLOGY METHOD 06/14/2025 4:38 PM EDT [facility] RBC Count 4.98 4.60 - 6.10 10*6/uL LAB HEMATOLOGY METHOD 06/14/2025 4:38 PM EDT [facility] HGB 13.9 13.7 - 17.5 g/dL LAB HEMATOLOGY METHOD 06/14/2025 4:38 PM EDT [facility] HCT 42.6 40.0 - 51.0 % LAB HEMATOLOGY METHOD 06/14/2025 4:38 PM EDT [facility] Platelet Count 160 155 - 369 10*3/uL LAB HEMATOLOGY METHOD 06/14/2025 4:38 PM EDT [facility] MCV 86 79 - 98 fL LAB HEMATOLOGY METHOD 06/14/2025 4:38 PM EDT [facility] MCH 27.9 26.0 - 32.0 pg LAB HEMATOLOGY METHOD 06/14/2025 4:38 PM EDT [facility] MCHC 32.6 30.7 - 35.5 g/dL LAB HEMATOLOGY METHOD 06/14/2025 4:38 PM EDT [facility] RDW 15.2(H) 11.5 - 14.5 % LAB HEMATOLOGY METHOD 06/14/2025 4:38 PM EDT [facility] MPV 10.3 8.8 - 12.5 fL LAB HEMATOLOGY METHOD 06/14/2025 4:38 PM EDT [facility] nRBC 0.0 <=0.0 per 100 WBCs LAB HEMATOLOGY METHOD 06/14/2025 4:38 PM EDT [facility] Blood Venous blood specimen / Unknown Venipuncture / Unknown 06/14/2025 2:36 PM EDT 06/14/2025 4:17 PM EDT us Phillip Clark MD LAB BLOOD ORDERABLES Final R esult [facility] [address] [place] [address] * (ABNORMAL) POCT arterial blood gas gem (06/14/2025 2:00 PM EDT) [facility] Signature pH, Arterial 7.35 7.31 - 7.42 06/14/2025 2:02 PM EDT [facility] pCO2, Arterial 38 32 - 45 mm Hg 06/14/2025 2:02 PM EDT [facility] pO2, Arterial 376 >80 mm Hg 06/14/2025 2:02 PM [facility] SO2, Arterial 100(H) 94 - 98 % 06/14/2025 [facility] Base Excess, Arterial -4.2(L) -2 - 3 mmol/L 06/14/2025 2:02 PM [facility] HCO3, Arterial 21.0(L) 22 - 26 mmol/L 06/14/2025 2:02 PM T [facility] Total Hemoglobin, Arterial, Whole Blood 14.5 13.7 - 17.5 g/dL 06/14/2025 2:02 PM [facility] Hematocrit, Arterial 44.0 40 - 51.0 % 06/14/2025 2:02 PM [facility] Sodium, Arterial 136 136 - 145 mmol/L 06/14/2025 2:02 PM [facility] Potassium, Arterial 3.4(L) 3.6 - 4.9 mmol/L 06/14/2025 2:02 PM [facility] Chloride, Whole Blood 105 97 - 107 mmol/L 06/14/2025 2:02 PM [facility] Glucose, Arterial 138(H) 74 - 99 mg/dL 06/14/2025 2:02 PM [facility] Ionized Calcium, Arterial 4.9 4.6 - 5.1 mg/dL 06/14/2025 2:02 PM [facility] Lactate, Arterial 4.2(H) 0.5 - 1.6 mmol/L 06/14/2025 2:02 PM T [facility] Body Temperature 37.0 Celsius 06/14/2025 2:02 PM [facility] pH, Temp Corrected, Arterial 7.35 7.31 - 7.42 06/14/2025 2:02 PM [facility] p[facility]2, Temp Corrected, Arterial 38 32 - 45 mm Hg 06/14/2025 2:02 PM EDT [facility] pO2, Temp Corrected, Arterial 376 >80 mm Hg 06/14/2025 2:02 PM EDT [facility] Lap Checker ID Ricki Zamarripa 06/14/2025 2:02 PM EDT [facility] Blood Whole blood specimen / Unknown 06/14/2025 2:00 PM EDT 06/14/2025 2:02 PM EDT us Phillip Clark MD LAB POINT OF CARE TE ST DOCKED DEVICE UNSOLICITED RESULTS Final Result [facility] [address] [place] [address] * (ABNORMAL) POCT arterial blood gas gem (06/14/2025 1:22 PM EDT) pH, Arterial 7.34 7.31 - 7.42 06/14/2025 1:23 PM EDT [facility] pCO2, Arterial 41 32 - 45 mm Hg 06/14/2025 1:23 PM EDT [facility] pO2, Arterial 518 >80 mm Hg 06/14/2025 1:23 PM EDT [facility] SO2, Arterial 100(H) 94 - 98 % 06/14/2025 1:23 PM EDT [facility] Base Excess, Arterial -3.5(L) -2 - 3 mmol/L 06/14/2025 1:23 PM EDT [facility] HCO3, Arterial 22.1 22 - 26 mmol/L 06/14/2025 1:23 PM EDT [facility] Total Hemoglobin, Arterial, Whole Blood 13.2(L) 13.7 - 17.5 g/dL 06/14/2025 1:23 PM EDT [facility] Hematocrit, Arterial 40.0 40 - 51.0 % 06/14/2025 1:23 PM EDT [facility] Sodium, Arterial 139 136 - 145 mmol/L 06/14/2025 1:23 PM EDT [facility] Potassium, Arterial 3.3(L) 3.6 - 4.9 mmol/L 06/14/2025 1:23 PM EDT [facility] Chloride, Whole Blood 104 97 - 107 mmol/L 06/14/2025 1:23 PM EDT [facility] Glucose, Arterial 137(H) 74 - 99 mg/dL 06/14/2025 1:23 PM EDT [facility] Ionized Calcium, Arterial 4.2(L) 4.6 - 5.1 mg/dL 06/14/2025 1:23 PM EDT [facility] Lactate, Arterial 3.0(H) 0.5 - 1.6 mmol/L 06/14/2025 1:23 PM EDT [facility] Body Temperature 37.0 Celsius 06/14/2025 1:23 PM EDT [facility] pH, Temp Corrected, Arterial 7.34 7.31 - 7.42 06/14/2025 1:23 PM EDT [facility] pCO2, Temp Corrected, Arterial 41 32 - 45 mm Hg 06/14/2025 1:23 PM EDT [facility] pO2, Temp Corrected, Arterial 518 >80 mm Hg 06/14/2025 1:23 PM EDT [facility] Lap Checker ID Ricki Zamarripa 06/14/2025 1:23 PM EDT [facility] Blood Whole blood specimen / Unknown 06/14/2025 1:22 PM EDT 06/14/2025 1:23 PM EDT Phillip Clark MD LAB POINT OF CARE TE ST DOCKED DEVICE UNSOLICITED RESULTS Final Result Performing Organization Address City/State/[facility] Co de Phone Number [facility] [address] [place] [address] * (ABNORMAL) POCT arterial blood gas gem (06/14/2025 12:52 PM EDT) pH, Arterial 7.40 7.31 - 7.42 06/14/2025 12:54 PM EDT [facility] pCO2, Arterial 35 32 - 45 mm Hg 06/14/2025 12:54 PM EDT [facility] pO2, Arterial 399 >80 mm Hg 06/14/2025 12:54 PM EDT [facility] SO2, Arterial 100(H) 94 - 98 % 06/14/2025 12:54 PM EDT [facility] Base Excess, Arterial -2.6(L) -2 - 3 mmol/L 06/14/2025 12:54 PM EDT [facility] HCO3, Arterial 21.7(L) 22 - 26 mmol/L 06/14/2025 12:54 PM EDT [facility] Total Hemoglobin, Arterial, Whole Blood 11.7(L) 13.7 - 17.5 g/dL 06/14/2025 12:54 PM EDT [facility] Hematocrit, Arterial 35.0(L) 40 - 51.0 % 06/14/2025 12:54 PM EDT [facility] Sodium, Arterial 134(L) 136 - 145 mmol/L 06/14/2025 12:54 PM EDT [facility] Potassium, Arterial 4.2 3.6 - 4.9 mmol/L 06/14/2025 12:54 PM EDT [facility] Chloride, Whole Blood 107 97 - 107 mmol/L 06/14/2025 12:54 PM EDT [facility] Glucose, Arterial 148(H) 74 - 99 mg/dL 06/14/2025 12:54 PM EDT [facility] Ionized Calcium, Arterial 4.1(L) 4.6 - 5.1 mg/dL 06/14/2025 12:54 PM EDT [facility] Lactate, Arterial 2.2(H) 0.5 - 1.6 mmol/L 06/14/2025 12:54 PM EDT [facility] Body Temperature 37.0 Celsius 06/14/2025 12:54 PM EDT [facility] pH, Temp Corrected, Arterial 7.40 7.31 - 7.42 06/14/2025 12:54 PM EDT [facility] pCO2, Temp Corrected, Arterial 35 32 - 45 mm Hg 06/14/2025 12:54 PM EDT [facility] pO2, Temp Corrected, Arterial 399 >80 mm Hg 06/14/2025 12:54 PM EDT [facility] Lap Checker ID Jean Claude Staley 06/14/2025 12:54 PM EDT [facility] Blood Whole blood specimen / Unknown 06/14/2025 12:52 PM EDT 06/14/2025 12:54 PM EDT us Phillip Clark MD LAB POINT OF CARE TE ST DOCKED DEVICE UNSOLICITED RESULTS Final Result Performing Organization Address City/State/[facility] Co de Phone Number [facility] [address] [place] [address] * POCT ACT (06/14/2025 12:43 PM EDT) [facility] ACT+ (HIGH RANGE) 98 68 - 600 Seconds 06/14/2025 12:49 PM EDT [facility] Lap Checker ID Vick Dupont 06/14/2025 12:49 PM EDT [facility] ACT Device ID [id number] 06/14/2025 12:49 PM EDT [facility] Comment 06/14/2025 12:49 PM EDT [facility] Comment: ACT performed by staff at point of care. Results are reported immediately to the physician or primary caregiver. The activated clotting time is performed on patients with diverse clinical characteristics and treatment histories. Therefore, expected values are variable and results must be interpreted in the context of each individual patient. Blood Venous blood specimen / Unknown 06/14/2025 12:43 PM EDT 06/14/2025 12:49 PM EDT Phillip Clark MD LAB POINT OF CARE TE ST DOCKED DEVICE UNSOLICITED RESULTS Final Result [facility] [address] [facility] [address] [place] [address] * (ABNORMAL) POCT arterial blood gas gem (06/14/2025 12:16 PM EDT) Pathologist [facility] pH, Arterial 7.42 7.31 - 7.42 06/14/2025 12:19 PM EDT [facility] pCO2, Arterial 36 32 - 45 mm Hg 06/14/2025 12:19 PM EDT [facility] pO2, Arterial 358 >80 mm Hg 06/14/2025 12:19 PM EDT [facility] SO2, Arterial 99(H) 94 - 98 % 06/14/2025 12:19 PM EDT [facility] Base Excess, Arterial -0.8 -2 - 3 mmol/L 06/14/2025 12:19 PM EDT [facility] HCO3, Arterial 23.4 22 - 26 mmol/L 06/14/2025 12:19 PM EDT [facility] Total Hemoglobin, Arterial, Whole Blood 11.3(L) 13.7 - 17.5 g/dL 06/14/2025 12:19 PM EDT [facility] Hematocrit, Arterial 34.0(L) 40 - 51.0 % 06/14/2025 12:19 PM EDT [facility] Sodium, Arterial 134(L) 136 - 145 mmol/L 06/14/2025 12:19 PM EDT [facility] Potassium, Arterial 5.7(H) 3.6 - 4.9 mmol/L 06/14/2025 12:19 PM EDT [facility] Chloride, Whole Blood 105 97 - 107 mmol/L 06/14/2025 12:19 PM EDT [facility] Glucose, Arterial 119(H) 74 - 99 mg/dL 06/14/2025 12:19 PM EDT [facility] Ionized Calcium, Arterial 4.0(L) 4.6 - 5.1 mg/dL 06/14/2025 12:19 PM EDT [facility] Lactate, Arterial 1.6 0.5 - 1.6 mmol/L 06/14/2025 12:19 PM EDT [facility] Body Temperature 37.0 Celsius 06/14/2025 12:19 PM EDT [facility] pH, Temp Corrected, Arterial 7.42 7.31 - 7.42 06/14/2025 12:19 PM EDT [facility] pCO2, Temp Corrected, Arterial 36 32 - 45 mm Hg 06/14/2025 12:19 PM EDT [facility] pO2, Temp Corrected, Arterial 358 >80 mm Hg 06/14/2025 12:19 PM EDT [facility] Lap Checker ID Vick Dupont 06/14/2025 12:19 PM EDT [facility] Blood Whole blood specimen / Unknown 06/14/2025 12:16 PM EDT 06/14/2025 12:19 PM EDT us Phillip Clark MD LAB POINT OF CARE TE ST DOCKED DEVICE UNSOLICITED RESULTS Final Result [facility] [address] [place] [address] * (ABNORMAL) POCT arterial blood gas gem (06/14/2025 12:06 PM EDT) pH, Arterial 7.39 7.31 - 7.42 06/14/2025 12:09 PM EDT [facility] pCO2, Arterial 40 32 - 45 mm Hg 06/14/2025 12:09 PM EDT [facility] pO2, Arterial 378 >80 mm Hg 06/14/2025 12:09 PM EDT [facility] SO2, Arterial 100(H) 94 - 98 % 06/14/2025 12:09 PM EDT [facility] Base Excess, Arterial -0.7 -2 - 3 mmol/L 06/14/2025 12:09 PM T [facility] HCO3, Arterial 24.2 22 - 26 mmol/L 06/14/2025 12:09 PM EDT [facility] Total Hemoglobin, Arterial, Whole Blood 11.5(L) 13.7 - 17.5 g/dL 06/14/2025 12: [facility] Hematocrit, Arterial 35.0(L) 40 - 51.0 % 06/14/2025 12:09 PM T [facility] Sodium, Arterial 134(L) 136 - 145 mmol/L 06/14/2025 12:09 PM T [facility] Potassium, Arterial 5.0(H) 3.6 - 4.9 mmol/L 06/14/2025 12:09 PM T [facility] Chloride, Whole Blood 105 97 - 107 mmol/L 06/14/2025 12:09 PM [facility] Glucose, Arterial 123(H) 74 - 99 mg/dL 06/14/2025 12:09 PM [facility] Ionized Calcium, Arterial 4.2(L) 4.6 - 5.1 mg/dL 06/14/2025 12:09 PM T [facility] Lactate, Arterial 1.2 0.5 - 1.6 mmol/L 06/14/2025 12:09 PM T [facility] Body Temperature 37.0 Celsius 06/14/2025 12:09 PM T [facility] pH, Temp Corrected, Arterial 7.39 7.31 - 7.42 06/14/2025 12:09 PM EDT [facility] pCO2, Temp Corrected, Arterial 40 32 - 45 mm Hg 06/14/2025 12:09 PM EDT [facility] pO2, Temp Corrected, Arterial 378 >80 mm Hg 06/14/2025 12:09 PM EDT [facility] Lap Checker ID Vick Dupont 06/14/2025 12:09 PM EDT [facility] Blood Whole blood specimen / Unknown 06/14/2025 12:06 PM EDT 06/14/2025 12:09 PM EDT Phillip Clark MD LAB POINT OF CARE TE ST DOCKED DEVICE UNSOLICITED RESULTS Final Result Performing Organization Address City/[facility]/ZIP Co de Phone Number HEALTHCARE LAB [address] [place] [address] * (ABNORMAL) QPLUS (06/14/2025 11:55 AM EDT) Clot Time 06/14/2025 12:12 PM EDT [facility] Clot Time Ratio 12:12 PM EDT [facility] POCT Clot Stiffness 14.6 13.0 - 33.2 hectoPascals 06/14/2025 12:12 PM EDT [facility] Platelet Contribution to Clot Stiffnes 13.1 11.9 - 29.8 hectoPascals 06/14/2025 12:12 PM EDT [facility] Fibrinogen Contribution to Clot Stiffness 1.5 1.0 - 3.7 hectoPascals 06/14/2025 12:12 PM EDT [facility] Heparinase Clot Time 175(H) 103 - 153 Seconds 06/14/2025 12:12 PM EDT [facility] Lap Checker ID Ricki Zamarripa 06/14/2025 12:12 PM EDT [facility] Device ID [id number] 06/14/2025 12:12 PM EDT [facility] Whole Blood 06/14/2025 11:5 5 AM EDT 06/14/2025 12:12 PM EDT Narrative [facility] - 06/14/2025 12:[address]: No Clot Detected us Phillip Clark MD LAB POINT OF CARE TE ST DOCKED DEVICE UNSOLICITED RESULTS Final Result Performing Organization Address City/[facility]/ZIP Co de Phone Number HEALTHCARE LAB [address] [place] [address] * POCT ACT (06/14/2025 11:54 AM EDT) [facility] ACT+ (HIGH RANGE) 510 68 - 600 Seconds 06/14/2025 12:07 PM EDT [facility] Lap Checker ID Vick Dupont 06/14/2025 12:07 PM EDT [facility] ACT Device ID [id number] 06/14/2025 12:07 PM EDT [facility] Comment 06/14/2025 12:07 PM EDT [facility] Comment: ACT performed by staff at point of care. Results are reported immediately to the physician or primary caregiver. The activated clotting time is performed on patients with diverse clinical characteristics and treatment histories. Therefore, expected values are variable and results must be interpreted in the context of each individual patient. Blood Venous blood specimen / Unknown 06/14/2025 11:54 AM EDT 06/14/2025 12:07 PM EDT Phillip Clark MD LAB POINT OF CARE TE ST DOCKED DEVICE UNSOLICITED RESULTS Final Result [facility] [address] LAB [address] [place] [address] * (ABNORMAL) POCT arterial blood gas gem (06/14/2025 11:33 AM EDT) [facility] pH, Arterial 7.37 7.31 - 7.42 06/14/2025 11:35 AM EDT [facility] pCO2, Arterial 43 32 - 45 mm Hg 06/14/2025 11:35 AM EDT [facility] pO2, Arterial 380 >80 mm Hg 06/14/2025 11:35 AM EDT [facility] SO2, Arterial 99(H) 94 - 98 % 06/14/2025 11:35 AM EDT [facility] Base Excess, Arterial -0.5 -2 - 3 mmol/L 06/14/2025 11:35 AM EDT [facility] HCO3, Arterial 24.9 22 - 26 mmol/L 06/14/2025 11:35 AM EDT [facility] Total Hemoglobin, Arterial, Whole Blood 11.5(L) 13.7 - 17.5 g/dL 06/14/2025 11:35 AM EDT [facility] Hematocrit, Arterial 35.0(L) 40 - 51.0 % 06/14/2025 11:35 AM EDT [facility] Sodium, Arterial 134(L) 136 - 145 mmol/L 06/14/2025 11:35 AM EDT [facility] Potassium, Arterial 5.6(H) 3.6 - 4.9 mmol/L 06/14/2025 11:35 AM EDT [facility] Chloride, Whole Blood 103 97 - 107 mmol/L 06/14/2025 11:35 AM EDT [facility] Glucose, Arterial 123(H) 74 - 99 mg/dL 06/14/2025 11:35 AM EDT [facility] Ionized Calcium, Arterial 4.2(L) 4.6 - 5.1 mg/dL 06/14/2025 11:35 AM EDT [facility] Lactate, Arterial 1.0 0.5 - 1.6 mmol/L 06/14/2025 11:35 AM EDT [facility] Body Temperature 37.0 Celsius 06/14/2025 11:35 AM EDT [facility] pH, Temp Corrected, Arterial 7.37 7.31 - 7.42 06/14/2025 11:35 AM EDT [facility] pCO2, Temp Corrected, Arterial 43 32 - 45 mm Hg 06/14/2025 11:35 AM EDT [facility] pO2, Temp Corrected, Arterial 380 >80 mm Hg 06/14/2025 11:35 AM EDT [facility] Lap Checker ID Vick Dupont 06/14/2025 11:35 AM EDT [facility] Blood Whole blood specimen / Unknown 06/14/2025 11:33 AM EDT 06/14/2025 11:35 AM EDT us Phillip Clark MD LAB POINT OF CARE TE ST DOCKED DEVICE UNSOLICITED RESULTS Final Result [facility] [address] [place] [address] * POCT ACT (06/14/2025 11:24 AM EDT) ACT+ (HIGH RANGE) 520 68 - 600 Seconds 06/14/2025 11:37 AM EDT [facility] Lap Checker ID Vick Dupont 06/14/2025 11:37 AM EDT [facility] ACT Device ID [id number] 06/14/2025 11:37 AM EDT [facility] Comment 06/14/2025 11:37 AM EDT [facility] Comment: ACT performed by staff at point of care. Results are reported immediately to the physician or primary caregiver. The activated clotting time is performed on patients with diverse clinical characteristics and treatment histories. Therefore, expected values are variable and results must be interpreted in the context of each individual patient. Blood Venous blood specimen / Unknown 06/14/2025 11:24 AM EDT 06/14/2025 11:37 AM EDT Phillip Clark MD LAB POINT OF CARE TE ST DOCKED DEVICE UNSOLICITED RESULTS Final Result [facility] [address] LAB [address] [place] [address] * (ABNORMAL) POCT arterial blood gas gem (06/14/2025 11:03 AM EDT) pH, Arterial 7.40 7.31 - 7.42 06/14/2025 11:04 AM EDT [facility] pCO2, Arterial 41 32 - 45 mm Hg 06/14/2025 11:04 AM EDT [facility] pO2, Arterial 406 >80 mm Hg 06/14/2025 11:04 AM EDT [facility] SO2, Arterial 100(H) 94 - 98 % 06/14/2025 11:04 AM EDT [facility] Base Excess, Arterial 0.5 -2 - 3 mmol/L 06/14/2025 11:04 AM EDT [facility] HCO3, Arterial 25.4 22 - 26 mmol/L 06/14/2025 11:04 AM EDT [facility] Total Hemoglobin, Arterial, Whole Blood 11.9(L) 13.7 - 17.5 g/dL 06/14/2025 11:04 AM EDT [facility] Hematocrit, Arterial 36.0(L) 40 - 51.0 % 06/14/2025 11:04 AM EDT [facility] Sodium, Arterial 133(L) 136 - 145 mmol/L 06/14/2025 11:04 AM EDT [facility] Potassium, Arterial 5.3(H) 3.6 - 4.9 mmol/L 06/14/2025 11:04 AM EDT [facility] Chloride, Whole Blood 103 97 - 107 mmol/L 06/14/2025 11:04 AM EDT [facility] Glucose, Arterial 121(H) 74 - 99 mg/dL 06/14/2025 11:04 AM EDT [facility] Ionized Calcium, Arterial 4.2(L) 4.6 - 5.1 mg/dL 06/14/2025 11:04 AM EDT [facility] Lactate, Arterial 1.0 0.5 - 1.6 mmol/L 06/14/2025 11:04 AM EDT [facility] Body Temperature 37.0 Celsius 06/14/2025 11:04 AM EDT [facility] pH, Temp Corrected, Arterial 7.40 7.31 - 7.42 06/14/2025 11:04 AM EDT [facility] pCO2, Temp Corrected, Arterial 41 32 - 45 mm Hg 06/14/2025 11:04 AM EDT [facility] pO2, Temp Corrected, Arterial 406 >80 mm Hg 06/14/2025 11:04 AM EDT [facility] Lap Checker ID Vick Dupont 06/14/2025 11:04 AM EDT [facility] Blood Whole blood specimen / Unknown 06/14/2025 11:03 AM EDT 06/14/2025 11:04 AM EDT Phillip Clark MD LAB POINT OF CARE TE ST DOCKED DEVICE UNSOLICITED RESULTS Final Result [facility] [address] [place] [address] * POCT ACT (06/14/2025 10:57 AM EDT) ACT+ (HIGH RANGE) 569 68 - 600 Seconds 06/14/2025 11:09 AM EDT [facility] Lap Checker ID Vick Dupont 06/14/2025 11:09 AM EDT [facility] ACT Device ID [id number] 06/14/2025 11:09 AM EDT [facility] Comment 06/14/2025 11:09 AM EDT [facility] Comment: ACT performed by staff at point of care. Results are reported immediately to the physician or primary caregiver. The activated clotting time is performed on patients with diverse clinical characteristics and treatment histories. Therefore, expected values are variable and results must be interpreted in the context of each individual patient. Blood Venous blood specimen / Unknown 06/14/2025 10:57 AM EDT 06/14/2025 11:09 AM EDT us Phillip Clark MD LAB POINT OF CARE TE ST DOCKED DEVICE UNSOLICITED RESULTS Final Result [facility] [address] LAB [address] [place] [address] * (ABNORMAL) POCT arterial blood gas gem (06/14/2025 10:33 AM EDT) pH, Arterial 7.39 7.31 - 7.42 06/14/2025 10:34 AM EDT [facility] pCO2, Arterial 41 32 - 45 mm Hg 06/14/2025 10:34 AM EDT [facility] pO2, Arterial 349 >80 mm Hg 06/14/2025 10:34 AM EDT [facility] SO2, Arterial 99(H) 94 - 98 % 06/14/2025 10:34 AM EDT [facility] Base Excess, Arterial -0.2 -2 - 3 mmol/L 06/14/2025 10:34 AM EDT [facility] HCO3, Arterial 24.8 22 - 26 mmol/L 06/14/2025 10:34 AM EDT [facility] Total Hemoglobin, Arterial, Whole Blood 10.9(L) 13.7 - 17.5 g/dL 06/14/2025 10:34 AM EDT [facility] Hematocrit, Arterial 33.0(L) 40 - 51.0 % 06/14/2025 10:34 AM EDT [facility] Sodium, Arterial 135(L) 136 - 145 mmol/L 06/14/2025 10:34 AM EDT [facility] Potassium, Arterial 4.8 3.6 - 4.9 mmol/L 06/14/2025 10:34 AM EDT [facility] Chloride, Whole Blood 103 97 - 107 mmol/L 06/14/2025 10:34 AM EDT [facility] Glucose, Arterial 116(H) 74 - 99 mg/dL 06/14/2025 10:34 AM EDT [facility] Ionized Calcium, Arterial 4.1(L) 4.6 - 5.1 mg/dL 06/14/2025 10:34 AM EDT [facility] Lactate, Arterial 1.3 0.5 - 1.6 mmol/L 06/14/2025 10:34 AM EDT [facility] Body Temperature 37.0 Celsius 06/14/2025 10:34 AM EDT [facility] pH, Temp Corrected, Arterial 7.39 7.31 - 7.42 06/14/2025 10:34 AM EDT [facility] pCO2, Temp Corrected, Arterial 41 32 - 45 mm Hg 06/14/2025 10:34 AM EDT [facility] pO2, Temp Corrected, Arterial 349 >80 mm Hg 06/14/2025 10:34 AM EDT [facility] Lap Checker ID Vick Dupont 06/14/2025 10:34 AM EDT [facility] Blood Whole blood specimen / Unknown 06/14/2025 10:33 AM EDT 06/14/2025 10:34 AM EDT us Phillip Clark MD LAB POINT OF CARE TE ST DOCKED DEVICE UNSOLICITED RESULTS Final Result Performing Organization Address City/State/[facility] Co de Phone Number [facility] [address] [place] [address] * (ABNORMAL) POCT ACT (06/14/2025 10:26 AM EDT) ACT+ (HIGH RANGE) >600(H) 68 - 600 Seconds 06/14/2025 10:40 AM EDT [facility] Lap Checker ID Vick Dupont 06/14/2025 10:40 AM EDT [facility] ACT Device ID [id number] 06/14/2025 10:40 AM EDT [facility] Comment 06/14/2025 10:40 AM EDT [facility] Comment: ACT performed by staff at point of care. Results are reported immediately to the physician or primary caregiver. The activated clotting time is performed on patients with diverse clinical characteristics and treatment histories. Therefore, expected values are variable and results must be interpreted in the context of each individual patient. Blood Venous blood specimen / Unknown 06/14/2025 10:26 AM EDT 06/14/2025 10:40 AM EDT us Phillip Clark MD LAB POINT OF CARE TE ST DOCKED DEVICE UNSOLICITED RESULTS Final Result [facility] [address] [place] [address] * Surgical Pathology Exam (06/14/2025 10:18 AM EDT) Case Report Surgical Pathology Case: [id number] Authorizing Provider: Phillip Clark MD Collected: 06/14/2025 1018 Ordering Location: [facility] A OPERATING ROOM Received: 06/14/2025 1413 Pathologist: Beth Lake MD Specimen: Heart, aortic valve leaflets 06/15/2025 11:44 AM EDT [facility] Final Diagnosis A. AORTIC VALVE LEAFLETS, REPLACEMENT: - FIBROSIS AND MYXOID DEGENERATION. 06/15/2025 11:44 AM EDT [facility] at 1144 EDT Clinical Information Severe aortic regurgitation [I35.1] 06/15/2025 11:44 AM EDT [facility] Gross Description A. AORTIC VALVE LEAFLETS Received fresh and placed in formalin labeled aortic valve leaflets are 2 white-montez soft cardiac leaflets ranging in size from 2.5-4.0 cm in greatest dimension. Card Setter sections are submitted in cassette A1. Cold Time: 3h 55m April Santos 06/15/2025 11:44 AM EDT [facility] Tissue Heart structure / Unknown 06/14/2025 10:18 AM EDT 06/14/2025 2:13 PM EDT Comment:Pre-op diagnosis: Severe aortic regurgitation [I35.1] us Phillip Clark MD LAB PATHOLOGY ORDERABLES Fin al Result [facility] [address] [place] [address] * (ABNORMAL) POCT arterial blood gas gem (06/14/2025 10:08 AM EDT) pH, Arterial 7.40 7.31 - 7.42 06/14/2025 10:17 AM EDT [facility] pCO2, Arterial 40 32 - 45 mm Hg 06/14/2025 10:17 AM EDT [facility] pO2, Arterial 410 >80 mm Hg 06/14/2025 10:17 AM EDT [facility] SO2, Arterial 100(H) 94 - 98 % 06/14/2025 10:17 AM EDT [facility] Base Excess, Arterial 0.0 -2 - 3 mmol/L 06/14/2025 10:17 AM EDT [facility] HCO3, Arterial 24.8 22 - 26 mmol/L 06/14/2025 10:17 AM EDT [facility] Total Hemoglobin, Arterial, Whole Blood 10.1(L) 13.7 - 17.5 g/dL 06/14/2025 10:[facility] Hematocrit, Arterial 30.0(L) 40 - 51.0 % 06/14/2025 10:17 AM EDT [facility] Sodium, Arterial 133(L) 136 - 145 mmol/L 06/14/2025 10:17 [facility] Potassium, Arterial 4.7 3.6 - 4.9 mmol/L 06/14/2025 10:17 AM EDT [facility] Chloride, Whole Blood 104 97 - 107 mmol/L 06/14/2025 10:17 AM EDT [facility] Glucose, Arterial 122(H) 74 - 99 mg/dL 06/14/2025 10:17 AM EDT [facility] Ionized Calcium, Arterial 3.9(L) 4.6 - 5.1 mg/dL 06/14/2025 10:17 [facility] Lactate, Arterial 1.5 0.5 - 1.6 mmol/L 06/14/2025 10:17 AM EDT [facility] Body Temperature 37.0 Celsius 06/14/2025 10:17 AM EDT [facility] pH, Temp Corrected, Arterial 7.40 7.31 - 7.42 06/14/2025 10:17 AM EDT [facility] pCO2, Temp Corrected, Arterial 40 32 - 45 mm Hg 06/14/2025 10:17 AM EDT [facility] pO2, Temp Corrected, Arterial 410 >80 mm Hg 06/14/2025 10:17 AM EDT [facility] Lap Checker ID Vick Dupont 06/14/2025 10:17 AM EDT [facility] Blood Whole blood specimen / Unknown 06/14/2025 10:08 AM EDT 06/14/2025 10:17 AM EDT us Phillip Clark MD LAB POINT OF CARE TE ST DOCKED DEVICE UNSOLICITED RESULTS Final Result Performing Organization Address City/[facility]/ZIP Co de Phone Number [facility]ALTHCARE LAB [address] [place] [address] * (ABNORMAL) POCT ACT (06/14/2025 10:04 AM EDT) ACT+ (HIGH RANGE) >600(H) 68 - 600 Seconds 06/14/2025 10:19 AM EDT [facility] Lap Checker ID Vick Dupont 06/14/2025 10:19 AM EDT [facility] ACT Device ID [id number] 06/14/2025 10:19 AM EDT [facility] Comment 06/14/2025 10:19 AM EDT [facility] Comment: ACT performed by staff at point of care. Results are reported immediately to the physician or primary caregiver. The activated clotting time is performed on patients with diverse clinical characteristics and treatment histories. Therefore, expected values are variable and results must be interpreted in the context of each individual patient. Blood Venous blood specimen / Unknown 06/14/2025 10:04 AM EDT 06/14/2025 10:19 AM EDT Phillip Clark MD LAB POINT OF CARE TE ST DOCKED DEVICE UNSOLICITED RESULTS Final Result Performing Organization Address City/[facility]/ZIP Co de Phone Number [facility]ARE [facility] [address] LAB [address] [place] [address] * POCT ACT (06/14/2025 8:13 AM EDT) ACT+ (HIGH RANGE) 90 68 - 600 Seconds 06/14/2025 8:20 AM EDT [facility] Lap Checker ID Kevin Hernandez 06/14/2025 8:20 AM EDT [facility] ACT Device ID [id number] 06/14/2025 8:20 AM EDT [facility] Comment 06/14/2025 8:20 AM EDT [facility] Comment: ACT performed by staff at point of care. Results are reported immediately to the physician or primary caregiver. The activated clotting time is performed on patients with diverse clinical characteristics and treatment histories. Therefore, expected values are variable and results must be interpreted in the context of each individual patient. Blood Venous blood specimen / Unknown 06/14/2025 8:13 AM EDT 06/14/2025 8:20 AM EDT Phillip Clark MD LAB POINT OF CARE TE ST DOCKED DEVICE UNSOLICITED RESULTS Final Result [facility] [address] LAB [address] [place] [address] * (ABNORMAL) POCT arterial blood gas gem (06/14/2025 8:13 AM EDT) pH, Arterial 7.38 7.31 - 7.42 06/14/2025 8:15 AM EDT [facility] pCO2, Arterial 40 32 - 45 mm Hg 06/14/2025 8:15 AM EDT [facility] pO2, Arterial 91 >80 mm Hg 06/14/2025 8:15 AM EDT [facility] SO2, Arterial 99(H) 94 - 98 % 06/14/2025 8:15 AM EDT [facility] Base Excess, Arterial -1.3 -2 - 3 mmol/L 06/14/2025 8:15 AM EDT [facility] HCO3, Arterial 23.7 22 - 26 mmol/L 06/14/2025 8:15 AM EDT [facility] Total Hemoglobin, Arterial, Whole Blood 14.5 13.7 - 17.5 g/dL 06/14/2025 8:15 AM EDT [facility] Hematocrit, Arterial 44.0 40 - 51.0 % 06/14/2025 8:15 AM EDT [facility] Sodium, Arterial 135(L) 136 - 145 mmol/L 06/14/2025 8:15 AM EDT [facility] Potassium, Arterial 4.1 3.6 - 4.9 mmol/L 06/14/2025 8:15 AM EDT [facility] Chloride, Whole Blood 103 97 - 107 mmol/L 06/14/2025 8:15 AM EDT [facility] Glucose, Arterial 95 74 - 99 mg/dL 06/14/2025 8:15 AM EDT [facility] Ionized Calcium, Arterial 4.7 4.6 - 5.1 mg/dL 06/14/2025 8:15 AM EDT [facility] Lactate, Arterial 0.8 0.5 - 1.6 mmol/L 06/14/2025 8:15 AM EDT [facility] Body Temperature 37.0 Celsius 06/14/2025 8:15 AM EDT [facility] pH, Temp Corrected, Arterial 7.38 7.31 - 7.42 06/14/2025 8:15 AM EDT [facility] pCO2, Temp Corrected, Arterial 40 32 - 45 mm Hg 06/14/2025 8:15 AM EDT [facility] pO2, Temp Corrected, Arterial 91 >80 mm Hg 06/14/2025 8:15 AM EDT [facility] Lap Checker ID Lb Coreas 06/14/2025 8:15 AM EDT [facility] Blood Whole blood specimen / Unknown 06/14/2025 8:13 AM EDT 06/14/2025 8:15 AM EDT us Phillip Clark MD LAB POINT OF CARE TE ST DOCKED DEVICE UNSOLICITED RESULTS Final Result [facility] [address] [place] [address] * Type and Screen (06/14/2025 6:27 AM EDT) ABO/Rh O Positive 06/14/2025 6:37 AM EDT [facility] Antibody Screen Negative 06/14/2025 6:37 AM EDT [facility] Specimen Expiration 06/17/2025 23:59 06/14/2025 6:37 AM EDT [facility] Blood Venous blood specimen / Unknown Venipuncture / Unknown 06/14/2025 6:27 AM EDT 06/14/2025 6:37 AM EDT Phillip Clark MD LAB BLOOD BANK TEST ORDERABL ES Final Result Performing Organization Address [facility] Co de Phone Number BLOOD BANK [address] [place] [address], * POCT glucose meter (06/14/2025 6:23 AM EDT) [facility] Signature POCT Glucose 93 74 - 99 mg/dL 06/14/2025 6:24 AM EDT [facility] Comment:Accuracy of a glucos e result obtained from a capillary whole blood specimen relies upon adequate, non-compromised capillary blood flow. If the capillary glucose result is not consistent with the patient's clinical signs and symptoms, glucose testing should be repeated with either an arterial or venous sample on the glucometer or sent to the main labortory for testing. Comment 06/14/2025 6:24 AM EDT [facility] Lap Checker ID Kassi Sinha 06/14/2025 6:24 AM EDT [facility] Device ID [id number] 06/14/2025 6:24 AM EDT [facility] Specimen Type POC Venous 06/14/2025 6:24 AM EDT [facility] Blood Venous blood specimen / Unknown 06/14/2025 6:23 AM EDT 06/14/2025 6:24 AM EDT Phillip Clark MD LAB POINT OF CARE TE ST DOCKED DEVICE UNSOLICITED RESULTS Final Result Performing Organization Address City/[facility] Co de Phone Number [facility] [address] [place] [address] documented in this encounter Visit Diagnoses Diagnosis Aortic valve regurgitation- Primary Aortic valve disorders Severe aortic regurgitation Other secondary hypertension S/P AVR BMI 30.0-30.9,adult High cholesterol Pure hypercholesterolemia Hypertension Unspecified essential hypertension CAD (coronary artery disease) Coronary atherosclerosis of unspecified type of vessel, [place] or graft History of coronary angioplasty with insertion of stent Ascending aortic aneurysm (CMS/HCC) Thoracic aneurysm without mention of rupture Benign prostatic hyperplasia Unspecified hyperplasia of prostate without urinary obstruction and other lower urinary tract symptoms (LUTS) Weaning from mechanically assisted ventilation initiated (CMS/HCC) Other secondary hypertension Cardiac volume overload Constipation Unspecified constipation Ileus (CMS/HCC) Paralytic ileus Left ventricular enlargement Cardiomegaly Thrombocytopenia (CMS/HCC) Unspecified thrombocytopenia Leukocytosis Leukocytosis, unspecified Hypocalcemia Acute blood loss anemia Acute posthemorrhagic anemia Hypoalbuminemia Other disorders of plasma protein metabolism Pre-diabetes Other abnormal glucose Ascending aortic aneurysm, unspecified whether ruptured (CMS/HCC)- Primary documented in this encounter Admitting Diagnoses Diagnosis Severe aortic regurgitation documented in this encounter Administered Medications Inactive Administered Medications - up to 3 most recent administrations Medication Order MAR Action Action Date Dose Rate Site acetaminophen (Tylenol) tablet 650 mg 650 mg, Oral, Every 4 hours scheduled, First dose (after last modification) on Fri06/14/25 at 2000, Until Discontinued, Routine Given 06/20/2025 8:55 AM EDT 650 mg Given 06/20/2025 4:05 AM EDT 650 mg Given 06/20/2025 12:26 AM EDT 650 mg calcium gluconate 1 g in sodium chloride 0.9% 100 mL IVPB (vial adapter required) 1 g, Intravenous, Once, 1 dose, On Fri06/15/25 at 0500, at 240 mL/hr, Administer over 30 Minutes, Routine New Bag 06/15/2025 4:24 AM EDT 1 g 240 mL/hr calcium gluconate 1 g in sodium chloride 0.9% 100 mL IVPB (vial adapter required) 1 g, Intravenous, Once, 1 dose, On Beatris 06/16/25 at 0230, at 240 mL/hr, Administer over 30 Minutes, Routine New Bag 06/16/2025 2:35 AM EDT 1 g 240 mL/hr ceFAZolin (Ancef) injection 2 g 2 g, Intravenous, Every 8 hours, 3 doses, First dose on Fri06/14/25 at 1530, Last dose on Fri06/15/25 at 0730, Routine, Recovery(Phase II-Outpatient)/On Unit(Inpatient) Given 06/15/2025 6:32 AM EDT 2 g Given 06/14/2025 10:58 PM EDT 2 g Given 06/14/2025 3:22 PM EDT 2 g clevidipine (Cleviprex) 0.5 MG/ML infusion 2 mg/hr (4 mL/hr), Intravenous, Continuous, Starting on Fri06/14/25 at 1545, Until Fri06/14/25 at 2357, Routine Rate/Dose Change 06/14/2025 11:00 PM EDT 5 mg/hr 10 mL/hr Rate/Dose Change 06/14/2025 10:30 PM EDT 5 mg/hr 10 mL/ hr Rate/Dose Verify 06/14/2025 10:00 PM EDT 6 mg/hr 12 mL/ hr clevidipine (Cleviprex) 0.5 MG/ML infusion 2 mg/hr (4 mL/hr), Intravenous, Titrated, Starting on Fri06/15/25 at 0045, Until Fri06/15/25 at 1838, Routine Rate/Dose Verify 06/15/2025 11:00 AM EDT 1 mg/hr 2 mL/hr Rate/Dose Verify 06/15/2025 10:00 AM EDT 1 mg/hr 2 mL/h r Rate/Dose Verify 06/15/2025 9:00 AM EDT 1 mg/hr 2 mL/hr clopidogrel (Plavix) tablet 75 mg 75 mg, Oral, Daily, First dose on [place] 06/16/25 at 1015, Until Discontinued, Routine Given 06/20/2025 8:55 AM EDT 75 mg Given 06/19/2025 8:48 AM EDT 75 mg Given 06/18/2025 8:21 AM EDT 75 mg dexmedetomidine in NS (Precedex) 4 mcg/mL infusion 0.4-1.4 mcg/kg/hr 87.8 kg Dosing weight (8.78-30.73 mL/hr), 4 mcg/mL, Intravenous, Titrated, Starting on Fri06/14/25 at 1630, Until Fri06/14/25 at 1827, Routine Rate/Dose Verify 06/14/2025 5:00 PM EDT 1.4 mcg/kg/hr 30.7 mL/hr Rate/Dose Verify 06/14/2025 4:00 PM EDT 1.4 mcg/kg/hr 30.7 mL/hr Continued from OR 06/14/2025 3:45 PM EDT 1.4 mcg/kg/hr 30. 7 mL/hr docusate sodium (Colace) capsule 100 mg 100 mg, Oral, 2 times daily, First dose on Fri06/14/25 at 2100, Until Discontinued, Routine, Recovery(Phase II-Outpatient)/On Unit(Inpatient) Given 06/17/2025 8:57 AM EDT 100 mg Given 06/16/2025 9:11 PM EDT 100 mg Given 06/16/2025 8:46 AM EDT 100 mg docusate sodium (Colace) capsule 200 mg 200 mg, Oral, 2 times daily, First dose (after last modification) on Fri06/17/25 at 2100, Until Discontinued, Routine, Recovery(Phase II-Outpatient)/On Unit(Inpatient) Given 06/19/2025 8:47 AM EDT 200 mg Given 06/18/2025 8:04 PM EDT 200 mg Given 06/18/2025 8:21 AM EDT 200 mg empagliflozin (Jardiance) tablet 10 mg 10 mg, Oral, Daily, First dose on Fri06/16/25 at 1015, Until Discontinued, RoutineIndications:Type 2 Diabetes Mellitus Given 06/20/2025 8:54 AM EDT 10 mg Given 06/19/2025 8:47 AM EDT 10 mg Given 06/18/2025 8:22 AM EDT 10 mg enoxaparin (Lovenox) syringe 40 mg 40 mg, Subcutaneous, Daily, First dose on Fri06/15/25 at 1115, Until Discontinued, Routine Given 06/15/2025 10:53 AM EDT 40 mg Left Lower Abdomen enoxaparin (Lovenox) syringe 40 mg 40 mg, Subcutaneous, Daily, 1 dose, First dose (after last modification) on Fri06/16/25 at 0900, Routine Given 06/16/2025 8:46 AM EDT 40 mg Left Lower Abdomen enoxaparin (Lovenox) syringe 70 mg 70 mg (rounded from 65.175 mg = 0.75 mg/kg 86.9 kg), Subcutaneous, Every 12 hours, First dose on Fri06/16/25 at 2100, Until Discontinued, Routine Given 06/18/2025 8:21 AM EDT 70 mg Left Lower Abdomen Given 06/17/2025 8:40 PM EDT 70 mg Le ft Upper Abdomen Given 06/17/2025 8:56 AM EDT 70 mg Ri ght Lower Abdomen EPINEPHrine infusion 8 mg in NS 250 mL (0.032 mg/mL) (compounding pharmacy premix) 0-0.2 mcg/kg/min 87.8 kg (0-32.925 mL/hr, rounded to 0-32.93 mL/hr), 0.032 mg/mL, Intravenous, Titrated, Starting on Fri06/14/25 at 1545, Until Fri06/15/25 at 1017, STAT Rate/Dose Change 06/14/2025 6:25 PM EDT 0.01 mcg/kg/min 1.65 mL/hr Rate/Dose Change 06/14/2025 6:20 PM EDT 0.02 mcg/kg/min 3. 29 mL/hr Rate/Dose Verify 06/14/2025 6:00 PM EDT 0.03 mcg/kg/min 4. 94 mL/hr ezetimibe (Zetia) tablet 10 mg 10 mg, Oral, Daily, First dose on [place] 06/16/25 at 1015, Until Discontinued, Routine Given 06/20/2025 8:55 AM EDT 10 mg Given 06/19/2025 8:47 AM EDT 10 mg Given 06/18/2025 8:21 AM EDT 10 mg furosemide (Lasix) injection 40 mg 40 mg, Intravenous, Once, 1 dose, On Fri06/15/25 at 1115, Routine Given 06/15/2025 10:54 AM EDT 40 mg furosemide (Lasix) injection 40 mg 40 mg, Intravenous, Once, 1 dose, On Fri06/15/25 at 2315, Routine Given 06/15/2025 10:51 PM EDT 40 mg furosemide (Lasix) tablet 40 mg 40 mg, Oral, Once, 1 dose, On Beat[place] 06/16/25 at 1015, Routine Given 06/16/2025 11:25 AM EDT 40 mg furosemide (Lasix) tablet 40 mg 40 mg, Oral, Once, 1 dose, On 06/18/25 at 1030, Routine Given 06/18/2025 9:56 AM EDT 40 mg hydrALAZINE (Apresoline) injection 10 mg 10 mg, Intravenous, Every 2 hour PRN, Starting on Fri06/15/25 at 0041, Until Fri06/15/25 at 2358, Routine, high blood pressure, For SBP > 120 and HR < 70 Given 06/15/2025 4:47 AM EDT 10 mg HYDROmorphone (Dilaudid) injection 0.25 mg 0.25 mg, Intravenous, Every 2 hour PRN, Starting on Fri06/14/25 at 1505, Until [place] 06/16/25 at 1427, Routine, CPOT (3-4) Given 06/14/2025 10:59 PM EDT 0.25 mg Given 06/14/2025 6:35 PM EDT 0.25 mg HYDROmorphone (Dilaudid) injection 0.5 mg 0.5 mg, Intravenous, Every 2 hour PRN, Starting on Fri06/14/25 at 1505, Until [place] 06/16/25 at 1427, Routine, CPOT (5-8) Given 06/16/2025 8:34 AM EDT 0.5 mg Given 06/15/2025 7:48 PM EDT 0.5 mg Given 06/15/2025 5:28 PM EDT 0.5 mg Apollo powder 1 packet 1 packet, Oral, 2 times daily, First dose on Fri06/15/25 at 2100, Until Discontinued, Routine Given 06/20/2025 8:55 AM EDT 1 packet Given 06/19/2025 8:18 PM EDT 1 packet Given 06/19/2025 9:13 AM EDT 1 packet labetalol (Normodyne,Trandate) injection 10 mg 10 mg, Intravenous, Every 2 hour PRN, Starting on Fri06/15/25 at 0042, Until Fri06/15/25 at 2358, Routine, high blood pressure, For SBP > 120 and HR > 70 Given 06/15/2025 11:28 PM EDT 10 mg Given 06/15/2025 8:33 PM EDT 10 mg Given 06/15/2025 4:25 PM EDT 10 mg labetalol (Normodyne,Trandate) injection 10 mg 10 mg, Intravenous, Every 2 hour PRN, Starting on Fri06/15/25 at 2358, Until Fri06/17/25 at 0922, Routine, high blood pressure, For SBP > 140 and HR > 70 Given 06/16/2025 4:49 AM EDT 10 mg losartan (Cozaar) tablet 25 mg 25 mg, Oral, 2 times daily, First dose on Fri06/16/25 at 1015, Until Discontinued, Routine Given 06/20/2025 8:5 4 AM EDT 25 mg Given 06/19/2025 8:17 PM EDT 25 mg Given 06/19/2025 8:46 AM EDT 25 mg magnesium hydroxide (Milk of Magnesia) 400 MG/5ML suspension 10 mL 10 mL, Oral, Daily, First dose on Fri06/16/25 at 1200, Until Discontinued, Routine Given 06/16/2025 1:01 PM EDT 10 mL magnesium sulfate IVPB 4 g 4 g, Intravenous, Once, 1 dose, On Fri06/15/25 at 2315, Routine Rate/Dose Verify 06/16/2025 12:00 AM EDT 25 mL/hr Rate/Dose Verify 06/15/2025 11:00 PM EDT 25 mL/ hr New Bag 06/15/2025 10:51 PM EDT 4 g 25 mL/hr melatonin tablet 9 mg 9 mg, Oral, Nightly, First dose (after last modification) on Fri06/15/25 at 0200, Until Discontinued, Routine Given 06/19/2025 8:17 PM EDT 9 mg Given 06/18/2025 8:03 PM EDT 9 mg Given 06/17/2025 8:40 PM EDT 9 mg methocarbamol (Robaxin) tablet 500 mg 500 mg, Oral, 3 times daily, First dose on Fri06/14/25 at 2100, Until Discontinued, Routine Given 06/20/2025 8:54 AM EDT 500 mg Given 06/19/2025 8:17 PM EDT 500 mg Given 06/19/2025 3:13 PM EDT 500 mg metoprolol tartrate (Lopressor) split tablet 12.5 mg 12.5 mg, Oral, 2 times daily, First dose on Fri06/15/25 at 1115, Until Discontinued, Routine Given 06/15/2025 8:01 PM EDT 12.5 mg Given 06/15/2025 10:54 AM EDT 12.5 mg metoprolol tartrate (Lopressor) split tablet 12.5 mg 12.5 mg, Oral, Once, 1 dose, On 06/15/25 at 2315, Routine Given 06/15/2025 10:51 PM EDT 12.5 mg metoprolol tartrate (Lopressor) tablet 25 mg 25 mg, Oral, 2 times daily, First dose (after last modification) on Beat[place] 06/16/25 at 0900, Until Discontinued, Routine Given 06/19/2025 8:47 AM EDT 25 mg Given 06/18/2025 8:04 PM EDT 25 mg Given 06/18/2025 6:26 AM EDT 25 mg metoprolol tartrate (Lopressor) tablet 25 mg 25 mg, Oral, Once, 1 dose, On 06/18/25 at 1300, Routine Given 06/18/2025 12:35 PM EDT 25 mg metoprolol tartrate (Lopressor) tablet 25 mg 25 mg, Oral, Once, 1 dose, On 06/19/25 at 0330, Routine Given 06/19/2025 2:43 AM EDT 25 mg metoprolol tartrate (Lopressor) tablet 25 mg 25 mg, Oral, Every 6 hours, First dose (after last modification) on 06/19/25 at 1500, Until Discontinued, Routine Given 06/20/2025 8:55 AM EDT 25 mg Given 06/20/2025 4:00 AM EDT 25 mg Given 06/19/2025 8:17 PM EDT 25 mg mupirocin (Bactroban) 2 % ointment 1 Application Each Nostril, 2 times daily, 10 doses, First dose on Fri06/14/25 at 2100, Last dose on 06/19/25 at 0900, Routine Given 06/19/2025 8:47 AM EDT 1 Application Given 06/18/2025 8:04 PM EDT 1 Application Given 06/18/2025 8:21 AM EDT 1 Application ondansetron (Zofran) injection 4 mg 4 mg, Intravenous, Every 6 hours PRN, Starting on Tu06/14/25 at 1435, Until 06/20/25 at 1627, Routine, Recovery(Phase II-Outpatient)/On Unit(Inpatient), nausea, vomiting Given 06/16/2025 5:33 PM EDT 4 mg Given 06/14/2025 8:14 PM EDT 4 mg oxyCODONE (Roxicodone) immediate release tablet 10 mg 10 mg, Oral, Every 6 hours PRN, Starting on Fri06/14/25 at 1505, Until Fri06/20/25 at 1627, Routine, severe pain Given 06/20/2025 11:50 AM EDT 10 mg Given 06/20/2025 6:22 AM EDT 10 mg Given 06/20/2025 12:26 AM EDT 10 mg oxyCODONE (Roxicodone) immediate release tablet 5 mg 5 mg, Oral, Every 6 hours PRN, Starting on Fri06/14/25 at 1505, Until Fri06/20/25 at 1627, Routine, moderate pain Given 06/17/2025 7:46 PM EDT 5 mg Given 06/17/2025 11:22 AM EDT 5 mg Given 06/15/2025 8:15 AM EDT 5 mg pantoprazole (Protonix) EC tablet 40 mg 40 mg, Oral, Daily, First dose on Fri06/15/25 at 1930, Until Discontinued, Routine Given 06/20/2025 8:54 AM EDT 40 mg Given 06/19/2025 8:48 AM EDT 40 mg Given 06/18/2025 8:21 AM EDT 40 mg pantoprazole (Protonix) injection 40 mg 40 mg, Intravenous, Daily, First dose on Fri06/14/25 at 1530, Until Discontinued, Routine, Recovery(Phase II-Outpatient)/On Unit(Inpatient) Given 06/14/2025 3:22 PM EDT 40 mg phosphorus (K Phos Neutral) tablet 1 tablet 1 tablet, Oral, Every 12 hours, 2 doses, First dose on Fri06/15/25 at 1930, Last dose on Fri06/16/25 at 0730, Routine Given 06/16/2025 7:17 AM EDT 1 tabl et Given 06/15/2025 7:51 PM EDT 1 tablet phosphorus (K Phos Neutral) tablet 1 tablet 1 tablet, Oral, Every 8 hours, 3 doses, First dose on Fri06/16/25 at 2045, Last dose on Fri06/17/25 at 1245, Routine Given 06/17/2025 1:10 PM EDT 1 tabl et Given 06/17/2025 4:43 AM EDT 1 tablet Given 06/16/2025 9:11 PM EDT 1 tablet phosphorus (K Phos Neutral) tablet 1 tablet 1 tablet, Oral, Every 8 hours, 3 doses, First dose on 06/18/25 at 0545, Last dose on 06/18/25 at 2145, Routine Given 06/18/2025 9:36 PM EDT 1 tabl et Given 06/18/2025 12:36 PM EDT 1 tablet Given 06/18/2025 4:51 AM EDT 1 tablet polyethylene glycol (Miralax) packet 17 g 17 g, Oral, Daily, First dose on [place] 06/16/25 at 1115, Until Discontinued, Routine Given 06/20/2025 8:55 AM EDT 17 g Given 06/19/2025 8:46 AM EDT 17 g Given 06/18/2025 8:21 AM EDT 17 g potassium chloride CR (Klor-Con) ER tablet 40 mEq 40 mEq, Oral, Once, 1 dose, On 06/18/25 at 1045, Routine Given 06/18/2025 9:56 AM EDT 40 mEq Povidone-Iodine 5 % swab solution 1 Application Nasal, Once, 1 dose, On Fri06/14/25 at 0700, Routine Given 06/14/2025 6:30 AM EDT 1 Application rosuvastatin (Crestor) tablet 40 mg 40 mg, Oral, Nightly, First dose on Fri06/15/25 at 2100, Until Discontinued, Routine Given 06/19/2025 8:17 PM EDT 40 mg Given 06/18/2025 8:04 PM EDT 40 mg Given 06/17/2025 8:40 PM EDT 40 mg senna (Senokot) tablet 17.2 mg 17.2 mg, Oral, Nightly, First dose on Fri06/14/25 at 2100, Until Discontinued, Routine, Recovery(Phase II-Outpatient)/On Unit(Inpatient) Given 06/16/2025 9:11 PM EDT 17.2 mg Given 06/15/2025 8:00 PM EDT 17.2 mg Given 06/14/2025 8:06 PM EDT 17.2 mg senna (Senokot) tablet 17.2 mg 17.2 mg, Oral, 2 times daily, First dose (after last modification) on Fri06/17/25 at 2100, Until Discontinued, Routine, Recovery(Phase II-Outpatient)/On Unit(Inpatient) Given 06/19/2025 8:46 AM EDT 17.2 mg Given 06/18/2025 8:03 PM EDT 17.2 mg Given 06/18/2025 8:21 AM EDT 17.2 mg simethicone (Mylicon) chewable tablet 80 mg 80 mg, Oral, Every 6 hours PRN, Starting on Fri06/15/25 at 2356, Until Fri06/20/25 at 1627, Routine, flatulence Given 06/16/2025 11:25 AM EDT 80 mg Given 06/16/2025 12:02 AM EDT 80 mg sodium chloride 0.9 % flush 10 mL 10 mL, Intravenous, Every 12 hours, First dose on Fri06/14/25 at 2045, Until Discontinued, Routine Given 06/20/2025 8:55 AM EDT 10 mL Given 06/19/2025 7:58 PM EDT 10 mL Given 06/19/2025 8:37 AM EDT 10 mL sodium chloride 0.9 % flush 10 mL 10 mL, Intravenous, Every 1 hour PRN, Starting on Fri06/14/25 at 1956, Until Fri06/20/25 at 1627, Routine, Flush Before and After EVERY dose of medication. sodium chloride 0.9 % flush 20 mL 20 mL, Intravenous, Every 1 hour PRN, Starting on Fri06/14/25 at 1956, Until Fri06/20/25 at 1627, Routine, After blood draws and if any blood seen in tubing. vancomycin in NS (Vancocin) IVPB 1,250 mg 1,250 mg (rounded from 1,330.5 mg = 15 mg/kg 88.7 kg), Intravenous, Once, 1 dose, On Fri06/14/25 at 0700, at 200 mL/hr, STAT New Bag 06/14/2025 6:36 AM EDT 1,250 mg 200 mL/hr warfarin (Coumadin) tablet 4 mg 4 mg, Oral, Daily, First dose on Fri06/15/25 at 1700, Until Discontinued, Routine Given 06/16/2025 5:27 PM EDT 4 mg Given 06/15/2025 4:08 PM EDT 4 mg warfarin (Coumadin) tablet 4 mg 4 mg, Oral, Daily, First dose (after last modification) on Fri06/18/25 at 1700, Until Discontinued, Routine Given 06/19/2025 4:55 PM EDT 4 mg Given 06/18/2025 5:58 PM EDT 4 mg warfarin (Coumadin) tablet 5 mg 5 mg, Oral, Daily, First dose (after last modification) on Fri06/17/25 at 1700, Until Discontinued, Routine Given 06/17/2025 4:55 PM EDT 5 mg documented in this encounter Active and Recently Administered Medications Times are shown in EDT. Scheduled Medication Order 06/18/2025 06/19/2025 06/20/2025 acetaminophen (Tylenol) tablet 650 mg 650 mg, Oral, Every 4 hours scheduled, First dose (after last modification) on Fri06/14/25 at 2000, Until Discontinued, Routine 0451 (Given - Provider: Lori Molina RN)0821 (Given - Provider: Brittaney Dumas, HESHAM)1235 (Given - Provider: Brittaney Dumas, HESHAM)1609 (Given - Provider: Brittaney Dumas, HESHAM)2002 (Given - Provider: Lori Molina RN)2359 (Not Given - Provider: Lori Molina RN - Reason: Patient/family refused) 0300 (Given - Provider: Lori Molina RN)0847 (Given - Provider: Vicente Hussein RN)1202 (Given - Provider: Vicente Hussein, HESHAM)1513 (Given - Provider: Vicente Hussein, HESHAM)2017 (Given - Provider: Any Garcia, HESHAM) 0026 (Given - Provider: Any Garcia, HESHAM)0405 (Given - Provider: Any Garcia, HESHAM)0855 (Given - Provider: Agustina Mello RN)1200 (Canceled Entry - Provider: Automatic Discharge Provider - Comment: Automatically canceled at discontinue of medication order)1600 (Canceled Entry - Provider: Automatic Discharge Provider - Comment: Automatically canceled at discontinue of medication order) clopidogrel (Plavix) tablet 75 mg 75 mg, Oral, Daily, First dose on Beat[place] 06/16/25 at 1015, Until Discontinued, Routine 0821 (Given - Provider: Brittaney Dumas RN) 0848 (Given - Provider: Vicente Hussein, HESHAM) 0855 (Given - Provider: Agustina Mello, HESHAM) docusate sodium (Colace) capsule 200 mg 200 mg, Oral, 2 times daily, First dose (after last modification) on Fri06/17/25 at 2100, Until Discontinued, Routine, Recovery(Phase II-Outpatient)/On Unit(Inpatient) 0821 (Given - Provider: Brittaney Dumas RN)2003 (Given - Provider: Lori Molina RN) 0847 (Given - Provider: Vicente Hussein, HESHAM)2017 (Not Given - Provider: Any Garcia RN - Reason: Patient/family refused) 0855 (Not Given - Provider: Agustina Mello RN - Reason: Patient/family refused) empagliflozin (Jardiance) tablet 10 mg 10 mg, Oral, Daily, First dose on Beat[place] 06/16/25 at 1015, Until Discontinued, Routine 0822 (Given - Provider: Brittaney Dumas RN) 0847 (Given - Provider: Vicente Hussein RN) 0854 (Given - Provider: Agustina Mello, HESHAM) enoxaparin (Lovenox) syringe 70 mg (CANCELED) 70 mg (rounded from 65.175 mg = 0.75 mg/kg 86.9 kg), Subcutaneous, Every 12 hours, First dose on Beat[place] 06/16/25 at 2100, Until Discontinued, Routine 0821 (Given - Provider: Brittaney Dumas RN) ezetimibe (Zetia) tablet 10 mg 10 mg, Oral, Daily, First dose on Beat[place] 06/16/25 at 1015, Until Discontinued, Routine 0821 (Given - Provider: Brittaney Dumas RN) 0847 (Given - Provider: Vicente Hussein RN) 0855 (Given - Provider: Agustina Mello RN) furosemide (Lasix) tablet 40 mg (COMPLETED) 40 mg, Oral, Once, 1 dose, On 06/18/25 at 1030, Routine 0956 (Given - Provider: Brittaney Dumas, HESHAM) Apollo powder 1 packet 1 packet, Oral, 2 times daily, First dose on Fri06/15/25 at 2100, Until Discontinued, Routine 0822 (Given - Provider: Brittaney Dumas RN)2003 (Not Given - Provider: Lori Molina RN - Reason: Patient/family refused) 0913 (Given - Provider: Vicente Hussein RN)2017 (Given - Provider: Any Garcia, HESHAM) 0855 (Given - Provider: Agustina Mello, HESHAM) losartan (Cozaar) tablet 25 mg 25 mg, Oral, 2 times daily, First dose on Beat[place] 06/16/25 at 1015, Until Discontinued, Routine 0821 (Given - Provider: Brittaney Dumas RN)2003 (Given - Provider: Lori Molina RN) 0846 (Given - Provider: Vicente Hussein RN)2016 (Given - Provider: Any Garcia RN) 0854 (Given - Provider: Agustina Mello, HESHAM) melatonin tablet 9 mg 9 mg, Oral, Nightly, First dose (after last modification) on Fri06/15/25 at 0200, Until Discontinued, Routine 2002 (Given - Provider: Lori Molina RN) 2016 (Given - Provider: Any Garcia, HESHAM) methocarbamol (Robaxin) tablet 500 mg 500 mg, Oral, 3 times daily, First dose on Fri06/14/25 at 2100, Until Discontinued, Routine 0821 (Given - Provider: Brittaney Dumas RN)1608 (Given - Provider: Brittaney Dumas, HESHAM)2003 (Given - Provider: Lori Molina RN) 0848 (Given - Provider: Vicente Hussein RN)1513 (Given - Provider: Vicente Hussein RN)2016 (Given - Provider: Any Garcia RN) 0854 (Given - Provider: Agustina Mello RN)1600 (Canceled Entry - Provider: Automatic Discharge Provider - Comment: Automatically canceled at discontinue of medication order) metoprolol tartrate (Lopressor) tablet 25 mg (CANCELED) 25 mg, Oral, 2 times daily, First dose (after last modification) on [place] 06/16/25 at 0900, Until Discontinued, Routine 0626 (Given - Provider: Lori Molina RN - Comment: given early per Jason Haji, DO due to vent morenita)0822 (Not Given - Provider: Brittaney Dumas, HESHAM - Reason: Hold for condition: must add comment - Comment: dose given by senior accounting manager rn @ [facility] instructed specification writer to hold 0900 dose)2003 (Given - Provider: Lori Molina RN) 08 (Given - Provider: Vicente Hussein, HESHAM) metoprolol tartrate (Lopressor) tablet 25 mg (COMPLETED) 25 mg, Oral, Once, 1 dose, On 06/18/25 at 1300, Routine 1235 (Given - Provider: Brittaney Dumas, HESHAM) metoprolol tartrate (Lopressor) tablet 25 mg (COMPLETED) 25 mg, Oral, Once, 1 dose, On 06/19/25 at 0330, Routine 0243 (Given - Provider: Lori Molina RN) metoprolol tartrate (Lopressor) tablet 25 mg 25 mg, Oral, Every 6 hours, First dose (after last modification) on 06/19/25 at 1500, Until Discontinued, Routine 1513 (Given - Provider: Vicente Hussein, HESHAM)2017 (Given - Provider: Any Garcia, HESHAM) 0400 (Given - Provider: Any Garcia RN)0855 (Given - Provider: Agustina Mello RN)1500 (Canceled Entry - Provider: Automatic Discharge Provider - Comment: Automatically canceled at discontinue of medication order) mupirocin (Bactroban) 2 % ointment 1 Application (COMPLETED) Each Nostril, 2 times daily, 10 doses, First dose on Fri06/14/25 at 2100, Last dose on 06/19/25 at 0900, Routine 0821 (Given - Provider: Brittaney Dumas, HESHAM)2003 (Given - Provider: Lori Molina RN) 08 (Given - Provider: Vicente Hussein RN) pantoprazole (Protonix) EC tablet 40 mg 40 mg, Oral, Daily, First dose on 06/15/25 at 1930, Until Discontinued, Routine 0821 (Given - Provider: Brittaney Dumas RN) 0848 (Given - Provider: Vicente Hussein, HESHAM) 0854 (Given - Provider: Agustina Mello, HESHAM) phosphorus (K Phos Neutral) tablet 1 tablet (COMPLETED) 1 tablet, Oral, Every 8 hours, 3 doses, First dose on 06/18/25 at 0545, Last dose on 06/18/25 at 2145, Routine 0451 (Given - Provider: Lori Molina RN)1236 (Given - Provider: Brittaney Dumas, HESHAM)2136 (Given - Provider: Lori Molina RN) polyethylene glycol (Miralax) packet 17 g 17 g, Oral, Daily, First dose on Beat[place] 06/16/25 at 1115, Until Discontinued, Routine 0821 (Given - Provider: Brittaney Dumas RN) 0846 (Given - Provider: Vicente Hussein RN) 0855 (Given - Provider: Agustina Mello RN) potassium chloride CR (Klor-Con) ER tablet 40 mEq (COMPLETED) 40 mEq, Oral, Once, 1 dose, On 06/18/25 at 1045, Routine 0956 (Given - Provider: Brittaney Dumas RN) rosuvastatin (Crestor) tablet 40 mg 40 mg, Oral, Nightly, First dose on Fri06/15/25 at 2100, Until Discontinued, Routine 2003 (Given - Provider: Lori Molina RN) 2016 (Given - Provider: Any Garcia RN) senna (Senokot) tablet 17.2 mg 17.2 mg, Oral, 2 times daily, First dose (after last modification) on Fri06/17/25 at 2100, Until Discontinued, Routine, Recovery(Phase II-Outpatient)/On Unit(Inpatient) 0821 (Given - Provider: Brittaney Dumas RN)2002 (Given - Provider: Lori Molina RN) 0846 (Given - Provider: Vicente Hussein, HESHAM)2017 (Not Given - Provider: Any Garcia RN - Reason: Patient/family refused) 0855 (Not Given - Provider: Agustina Mello RN - Reason: Patient/family refused) sodium chloride 0.9 % flush 10 mL 10 mL, Intravenous, Every 12 hours, First dose on Fri06/14/25 at 2045, Until Discontinued, Routine 0822 (Given - Provider: Brittaney Dumas, HESHAM)2004 (Given - Provider: Lori Molina RN) 0837 (Given - Provider: Vicente Hussein RN)195 (Given - Provider: Any Garcia RN) 0855 (Given - Provider: Agustina Mello RN) warfarin (Coumadin) tablet 4 mg 4 mg, Oral, Daily, First dose (after last modification) on 06/18/25 at 1700, Until Discontinued, Routine 175 (Given - Provider: Brittaney Dumas RN) 1655 (Given - Provider: Vicente Hussein RN) PRN Medication Order 06/18/2025 06/19/2025 06/20/2025 ondansetron (Zofran) injection 4 mg 4 mg, Intravenous, Every 6 hours PRN, Starting on Fri06/14/25 at 1435, Until Fri06/20/25 at 1627, Routine, Recovery(Phase II-Outpatient)/On Unit(Inpatient), nausea, vomiting oxyCODONE (Roxicodone) immediate release tablet 10 mg(Linked Group 1) 10 mg, Oral, Every 6 hours PRN, Starting on Fri06/14/25 at 1505, Until Fri06/20/25 at 1627, Routine, severe pain 0140 (Given - Provider: Lori Molina RN)0829 (Given - Provider: Brittaney Dumas RN)2003 (Given - Provider: Lori Molina RN) 0431 (Given - Provider: Lori Molina RN)1001 (Given - Provider: Vicente Hussein RN)1703 (Given - Provider: Vicente Hussein RN) 0026 (Given - Provider: Any Garcia, HESHAM)0622 (Given - Provider: Any Garcia RN - Comment: epic unavailable in room--downtime)1150 (Given - Provider: Agustina Mello RN) oxyCODONE (Roxicodone) immediate release tablet 5 mg(Linked Group 1) 5 mg, Oral, Every 6 hours PRN, Starting on Fri06/14/25 at 1505, Until Fri06/20/25 at 1627, Routine, moderate pain 0140 (See Alternative - Provider: Lori Molina, RN)0829 (See Alternative - Provider: Brittaney Dumas, HESHAM)2004 (See Alternative - Provider: Lori Molina, RN) 0431 (See Alternative - Provider: Lori Molina RN)1001 (See Alternative - Provider: Vicente Hussein, HESHAM)1703 (See Alternative - Provider: Vicente Hussein, HESHAM) 0026 (See Alternative - Provider: Any Garcia, HESHAM)0622 (See Alternative - Provider: Any Garcia RN)1150 (See Alternative - Provider: Agustina Mello RN) simethicone (Mylicon) chewable tablet 80 mg 80 mg, Oral, Every 6 hours PRN, Starting on Fri06/15/25 at 2356, Until Fri06/20/25 at 1627, Routine, flatulence sodium chloride 0.9 % flush 10 mL 10 mL, Intravenous, Every 1 hour PRN, Starting on Fri06/14/25 at 1956, Until Fri06/20/25 at 1627, Routine, Flush Before and After EVERY dose of medication. sodium chloride 0.9 % flush 20 mL 20 mL, Intravenous, Every 1 hour PRN, Starting on Fri06/14/25 at 1956, Until Fri06/20/25 at 1627, Routine, After blood draws and if any blood seen in tubing. Linked Groups Order Group 1: oxyCODONE (Roxicodone) immediate release tablet 5 mgJump to med 5 mg, Oral, Every 6 hours PRN, Starting on Fri06/14/25 at 1505, Until Fri06/20/25 at 1627, Routine, moderate pain Or oxyCODONE (Roxicodone) immediate release tablet 10 mgJump to med 10 mg, Oral, Every 6 hours PRN, Starting on Fri06/14/25 at 1505, Until Fri06/20/25 at 1627, Routine, severe pain documented in this encounter Additional Health Concerns Assessment Noted Time A fall risk assessment has been complete d for the patient 06/09/2025 12:15 PM EDT A Body Mass Index follow-up plan has been documented for the patient 06/20/2025 10:30 AM EDT documented as of this encounter 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
--- OUTSIDE RECORDS SUMMARY | 2025-06-14 06:45 | XMS_ITS | Encounter Summary ---
Author Organization [facility] Address [address] [place] [id number] Care Team Providers Care Weaving Instructor Name Role Phone Kamran Singh MD Primary Care Provider [phone] Reason for Visit * Auth/Cert (Routine) Specialty Diagnoses / Procedures Referred By Nathalia t Referred To Contact Diagnoses Severe aortic regurgitation Severe aortic regurgitation [I35.1] Procedures [place] -AORT GRF W/CARD BYP F/AORTIC DISSECTION AORTIC ROOT RECONSTRUCTION Phillip Clark MD [address] [address] Phone: tel: fax: [facility] [address] [place] [address] Phone: tel: Referral ID Status Reason Start Date Expiration Date Visits Re quested Visits Authorized [id number] 1 1 Encounter Details Date Type Department Care Team (Late st Contact Info) Description 06/14/2025 7:45 AM EDT - 06/14/2025 8:15 PM EDT Surgery [facility] [address] [place] [id number] Phillip Clark MD [address] [facility] [address] [place] [address] Aortic valve replacement [83020 (CPT )] Surgery Details Date/Time Status Location [...] in a chcf (including now)? No 06/15/2025 [facility] Utilities Answer Date Recorded In the past 12 months has th e [employer], gas, oil, or water [email or web address] threatened to shut off services in your [...] by mouth daily. 30 tablet 06/20/2025 5 empagliflozin (Jardiance) 10 MG Take 1 tablet [...] times a day. 60 tablet 2 06/20/2025 naloxone (Narcan) 4 mg/0.1 mL nasal spray [...] for loose stools 20 tablet 06/20/2025 5 documented as of this encounter [...] a referral and [facility] at [facility] [place] will contact Mr. Forrest to discuss and [...] 2. Eligibility: Heart valve surgery 3. Exceptions/exclusions: [facility] Cardiac Rehab Exclusions: None 4. Referral: [facility] Cardiac Rehab Referral: Patient agreed with referral to the cardiac [facility] program at [facility] in [place], [place], phone number [phone]. 5. Information sent: Information Sent: Appropriate information will be sent to the receiving cardiac rehabilitation program.: * Progress Notes - Oumou Berger - 06/20/2025 10:15 AM EDT Case Management Discharge Note Bradley Forrest 69 y.o. male CSN: [id number] Admission: 06/14/2025 5:18 AM Primary Problem: Aortic valve regurgitation Primary Front Office Representative: Primary Caregiver: Self Assistance Available at Discharge: Current Outpatient/Agency/Support Group: DME Availability of Care Givers (#Hours): Other (comment) (As needed) Family/Front Office Representative(s) Willingness Assessed to care for patient at home: Yes Family/Front Office Representative(s) Readiness Assessed to care for patient at [...] Follow-up: Jolynn Pollard APRN [facility] Cardiology [address] [place] [address] [address]av[address] [phone] Go on 08/22/2025 Your cardiology appointment is on August 22 at 11am Please arrive 15 minutes early and bring UPDATED medication list. [address] [facility] [phone] Go on 06/22/2025 Your first appointment for your Warfarin/Coumadin management is this FridayJune 22 at 11:30am. Please report to [facility] front admission desk and tell them you are checking in to the [facility]. The [employer] clerk will call the pharmacist who will meet you in the lobby and escort you to the clinic. Please bring all medications you are taking and your insurance card. If you have any issues please call [phone] ext: [phone] and then choose option 2. Discharge Transportation: Transportation Anticipated: family or friend will provide Transportation Home at Discharge: Family/Friend will Provide Follow Up Transport: Transportation Needed to Follow up Appoinments: Family/Friend will Provide Additional Comments: SW spoke with primary team this date who indicate the pt is medically stable for DC this date and does not require further [facility]-based care. Pt to DC home with , to transport. Covering RNCM [facility] roll[facility] to be delivered to bedside. No [...] PCP name and Address: Kamran Singh MD [address] [facility] [address] Referring provider name and address: No referring [...] Medications These medications were sent to [facility] [place], [place] - [address] [facility] [address] acetaminophen 325 MG tablet clopidogrel 75 MG [...] Center 07/07/2025 2:40 PM Phillip Clark MD [facility] Test Results Pending At Discharge N/A [...] Plan Anticoagulation Plan Warfarin Pharmacist Managed?: No [facility] Warfarin Dosing Protocol Followed?: No Reason for Protocol Departure: CT Surgery Bridging Agent in Conjunction With Warfarin? : No INR Monitoring Frequency: Monitor INR daily Patient Education : Complete and documented Warfarin dosing and adjustment per CT surgery provider. Transitions of Care Outpatient provider managing warfarin after [facility] discharge: TBD - possibly clinic Recommended date for outpatient INR assessment: TBD - of note, enoxparin copay $0 for 7 day supply Will continue to follow patient's clinical progress daily. Frank BernalD, [facility] Clinical [facility] - Cardiothoracic Surgery Available via [employer] * Progress Notes - Phillip Clark MD [...] Bleeding Flowsheets (Taken 06/19/20251704 by Vicente Hussein, HESHAM) Bleeding Management: dressing monitored Goal: Effective Bowel [...] Positioning: HOB elevated Taken 06/19/20251704 by Vicente uHssein RN Glycemic Management: blood glucose monitored Fever [...] 1000 Number of Repetitions (IS): 10 Taken 06/19/2025 034 by Lori Molina RN Patient Tolerance (IS): [...] Ongoing, Progressing Intervention: Promote Activity and Functional [place] Flowsheets (Taken 06/19/20251704 by Vicente Hussein RN) Activity Assistance Provided: assistance, stand-by Adaptive Equipment Use: use encouraged Self-Care Promotion: independence encouraged Problem: Self-Care Deficit Goal: Improved Ability to Complete Activities of Daily Living Outcome: Ongoing, Progressing Intervention: Promote Activity and Functional [place] Flowsheets (Taken 06/19/20251704 by Vicente Hussein RN) Activity Assistance Provided: assistance, stand-by Adaptive Equipment Use: use encouraged Self-Care Promotion: independence encouraged Problem: Wound Goal: Optimal Coping Outcome: Ongoing, Progressing Intervention: Support Patient and Family Response Flowsheets (Taken 06/19/20251704 by Vicente Hussein RN) [...] Optimize Psychosocial Wellbeing Flowsheets Taken 06/19/20251704 by Vicetne Hussein RN Supportive Measures: active listening utilized [...] Ongoing, Progressing Intervention: Promote Activity and Functional [place] Flowsheets (Taken 06/19/20251704) Activity Assistance Provided: assistance, [...] Ongoing, Progressing Intervention: Promote Activity and Functional [place] Flowsheets (Taken 06/19/2025 1705) Activity Assistance Provided: [...] Plan Anticoagulation Plan Warfarin Pharmacist Managed?: No [facility] Warfarin Dosing Protocol Followed?: No Reason for Protocol Departure: CT Surgery Bridging Agent in Conjunction With Warfarin? : No Goal PTT/anti-Xa: 2.5-3.5 INR Monitoring Frequency: Monitor INR daily Patient Education : Complete and documented Warfarin dosing and adjustment per CT surgery provider. Transitions of Care Outpatient provider managing warfarin after [facility] discharge: TBD - possibly clinic Recommended [...] rhythm - continue warfarin CT surgery pager [phone] [1] acetaminophen, 650 mg, Oral, q4h DEMETRIUS [...] Intervention: Prevent Skin Injury Flowsheets Taken 06/19/2025 034 Skin Protection: incontinence pads utilized Taken 06/19/2025 [...] provided Intervention: Provide Person-Centered Care Flowsheets (Taken 06/19/2025 034) Trust Relationship/Rapport: care explained choices provided questions [...] Secretion Clearance Flowsheets Taken 06/19/2025344 by Lori Molina, RN Patient Tolerance (IS): good Administration (IS): [...] Ongoing, Progressing Intervention: Promote Activity and Functional [place] Flowsheets (Taken 06/19/2025344) Activity Assistance Provided: assistance, stand-by Self-Care Promotion: independence encouraged Problem: Self-Care Deficit Goal: Improved Ability to Complete Activities of Daily Living Outcome: Ongoing, Progressing Intervention: Promote Activity and Functional [place] Flowsheets (Taken 06/19/2025344) Activity Assistance Provided: assistance, [...] from the original note were not included. [id number] Tratamiento para contracciones ventriculares prematuras (CVP) Las [...] Confusi??n. Last Reviewed Date: 2024 00:00:00 ?? 3746-1775 [employer]. All rights reserved. This information is not intended as a substitute for professional medical care. Always follow your healthcare professional's instructions. * Gabriel Singh - Brittaney Dumas RN - 06/18/2025 6:29 PM EDT Images from the original note were not included. [id number] C??mo comprender las contracciones ventriculares prematuras (CVP) [...] se??al activa partes cercanas del coraz??n contraer. [place] permite que el coraz??n se comprima de [...] card??acos anteriores, el coraz??n expulsar?? muypoca mushtaq. [place] provoca aria sensaci??n de pausa entre latidos. El siguiente latido card??aco suele ser m??s bea, ya que la pausa lo permite que el coraz??n descanse y se llene de mushtaq. [place] lleva a aria sensaci??n de latido card??aco [...] Hipertr??fico miocardiopat??a. ? Cardiopat??a betty??karlos. ? insuficiencia card??emgan. Los CVP suelen darse en personas que [...] port??til jameson unos d??as o incluso semanas. [place] puede ayudar a diagnosticar los CVP que [...] im??genes del coraz??n. ? An??lisis de mushtaq. [place] se hace para comprobar los electrolitos y concentraciones tiroideas. Last Reviewed Date: 2024 00:00:00 ?? [id number] [employer]. All rights reserved. This information is not intended as a substitute for professional medical care. Always follow your healthcare professional's instructions. * Gabriel OnFHALONZO - Brittaney Dumas RN - 06/18/2025 6:29 PM EDT Images from the original note were not included. [id number] Tratamiento para contracciones ventriculares prematuras (CVP) Las [...] Confusi??n. Last Reviewed Date: 2024 00:00:00 ?? [id number] [employer]. All rights reserved. This information is not intended as a substitute for professional medical care. Always follow your healthcare professional's instructions. * Gabriel Singh - Brittaney Dumas RN - 06/18/2025 6:29 PM EDT Images from the original note were not included. [id number] C??mo comprender las contracciones ventriculares prematuras (CVP) [...] se??al activa partes cercanas del coraz??n contraer. [place] permite que el coraz??n se comprima de [...] card??acos anteriores, el coraz??n expulsar?? muypoca mushtaq. [place] provoca aria sensaci??n de pausa entre latidos. El siguiente latido card??aco suele ser m??s bea, ya que la pausa lo permite que el coraz??n descanse y se llene de mushtaq. [place] lleva a aria sensaci??n de latido card??aco [...] sobre beaver los antecedentes m??dicos y hacerle arai exploraci??n f??purvi. La prueba principal es un [...] port??til jameson unos d??as o incluso semanas. [place] puede ayudar a diagnosticar los CVP que [...] im??genes del coraz??n. ? An??lisis de mushtaq. [place] se hace para comprobar los electrolitos y concentraciones tiroideas. Last Reviewed Date: 2024 00:00:00 ?? 6892-9508 [employer]. All rights reserved. This information is not intended as a substitute for professional medical care. Always follow your healthcare professional's instructions. * Gabriel Singh - Brittaney Dumas RN - 06/18/2025 6:28 PM EDT Images from the original note were not included. 26517 Treatment for Premature Ventricular Contractions (PVCs) Premature [...] confusion Last Reviewed Date: 2024 00:00:00 ?? [id number] [employer]. All rights reserved. This information is not intended as a substitute for professional medical care. Always follow your healthcare professional's instructions. * Gabriel GonsalezTRISTAN Dumas Brittaney Darin, RN - 06/18/2025 6:28 PM EDT Images from the original note were not included. 35931 Understanding Premature Ventricular Contractions (PVCs) Premature ventricular [...] 2 weeks. ? Insertable (or implantable) monitor technician. This small device is implanted under the [...] levels. Last Reviewed Date: 2024 00:00:00 ?? 5684-3208 [employer]. All rights reserved. This information is not [...] Plan Anticoagulation Plan Warfarin Pharmacist Managed?: No [facility] Warfarin Dosing Protocol Followed?: No Bridging Agent in Conjunction With Warfarin? : Yes Ordered Agents: Enoxaparin Bridging Agent Dose: 70mg BID INR Monitoring Frequency: Monitor INR daily Patient Education : Complete and documented Warfarin dosing and adjustment per CT surgery provider. Transitions of Care Outpatient provider managing warfarin after [facility] discharge: TBD - possibly clinic Recommended [...] Ongoing, Progressing Intervention: Promote Activity and Functional [place] Flowsheets (Taken 06/18/202558) Activity Assistance Provided: assistance, 1 person Self-Care Promotion: independence encouraged Problem: Self-Care Deficit Goal: Improved Ability to Complete Activities of Daily Living Outcome: Ongoing, Progressing Intervention: Promote Activity and Functional [place] Flowsheets (Taken 06/18/202558) Activity Assistance Provided: assistance, [...] from the original note were not included. [id number] Warfarin IMPORTANT WARNING: Warfarin may cause severe [...] doctor or pharmacist will give you the first officer and flight instructor's patient information sheet (Medication Guide) when you begin treatment with warfarin and each time you refill your prescription. Read the information carefully and ask your doctor or pharmacist if you have any questions. You can also visit the Food and Drug Administration (FDA) website (https://www.fda.gov/downloads/Drugs/DrugSafety/vox019173.pdf) or the first officer and flight instructor's website to obtain the Medication Guide. Talk [...] amounts of vitamin K-containing food on a qvrb-ut-bvfo basis. Do not eat large amounts of [...] of all of the prescription and nonprescription (xdrz-bpa-pvwssnp) medicines, vitamins, minerals, and dietary supplements you [...] or pharmacist about specific clinical use. The [place] [employer] represents that the information provided hereunder was formulated with a reasonable standard of care, and in conformity with professional standards in the field. The [place] [employer] makes no representations or warranties, express or implied, including, but not limited to, any implied warranty of merchantability and/or fitness for a particular purpose, with respect to such information and specifically disclaims all such warranties. 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 The entire monograph for a drug should be reviewed for a thorough understanding of the drug's actions, uses and side effects. The [place] [employer] does not endorse or recommend the use of any drug.The information is not a substitute for medical care. AHFS?? Patient Medication Information?. ?? Copyright, 2023. The [place] [employer]??, [address], [address], [place], [place]. All Rights Reserved. Duplication for commercial use must be authorized by [facility]. Selected Revisions: February 13, 2017. AHFS?? Patient Medication Information?. ?? Copyright, 2024 * Gabriel Singh - Sydni Munson RN - 06/17/2025 12:42 PM EDT Images from the original note were not included. [id number] Recovery From Heart Surgery: The First Few [...] stop Last Reviewed Date: 2024 00:00:00 ?? [id number] [employer]. All rights reserved. This information is not [...] your arms away from your body. * [facility] - Sydni Munson RN - 06/17/2025 12:42 PM EDT Images from the original note were not included. 95202 After Heart Valve Surgery For the first [...] headache Last Reviewed Date: 2023 00:00:00 ?? 2883-1808 [employer]. All rights reserved. This information is not intended as a substitute for professional medical care. Always follow your healthcare professional's instructions. * Discharge Instr - Other Orders - Sydni Munson RN - 06/17/2025 12:39 PM EDT Please arrive 30 minutes early for your appointment with Dr. Clark Prior to your appointment, go to the radiology department on the 1st floor of the [facility] near [facility] for a chest x-ray. Then [...] your incisions. Do NOT lift, push, or fur puller 5 pounds for six weeks. Do [...] Sydni Munson CT Surgery Nurse Navigator at [phone] Friday through Friday 7am- 3:30pm [facility] [phone] after 3:30 pm, weekends and holidays - ask for the CT surgeon manager clinical applications. * Progress Notes - Brooke Valdez PTA - 06/17/2025 11:58 AM EDT Physical Therapy Treatment Patient Name: Bradley Forrest Today's Date: 06/17/2025 Total Treatment Time: 39 min PT Discharge Recommendations: Home with assistance Equipment Recommended: Rollator Subjective The patient states, I am doing okay. Participants in Care Family/Caregiver Present: Yes Family/Caregiver: Spouse, Other (Specify) (sister and brother) 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: Not Applicable Presentation Oxygen: None (Room air) [...] sequencing. Bed Mobility Exam: Rolling/Turning Level of [place]: Minimum assist (75% patient effort) Physical/Nonphysical Assist: Verbal Cues, Set-up required Bed Mobility Exam: Scooting/Bridging Level of [place]: Minimum assist (75% patient's effort) (to scoot to edge of bed with cues to adhere to sternal precautions) Physical/Nonphysical Assist: Verbal Cues, Set-up required Bed Mobility Exam: Supine to Sit Level of [place]: Minimum assist (75% patient's effort) Physical/Nonphysical Assist: Verbal Cues, Set-up required, Additional assist utilized for safety Bed Mobility Exam: Sit to Supine Level of [place]: Minimum assist (75% patient's effort) Physical/Nonphysical Assist: Verbal Cues, Set-up required, Additional assist utilized for safety Transfers Transfer Intervention: Verbal cues provided for correct bilateral hand and foot placement during sit to stand transfers. Transfer Interventions: The patient stood at the sink for hygiene approximately 8-10 minutes with CGA of 1 person. 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 Level of [place] Adaptive Equipment Utilized Comments Feeding Grooming SBA Standing sinkside stood times 8 minutes in bathroom. Bathing Upper Body Dressing Lower Body Dressing Sock Level of Assistance: Moderate assistance, Minimal verbal cues Toileting SBA Toilet IADLs Health Management Community Re-Entry BALANCE Postural Appearance INTERVENTIONS Level of [place] Balance Support Comments Static Sit Standby assist [...] weight shifting to promote safety. Level of [place] Physical/Non-physical Assist Adaptive Equipment Utilized Rolling/ Turning [...] Plan Anticoagulation Plan Warfarin Pharmacist Managed?: No [facility] Warfarin Dosing Protocol Followed?: No Bridging Agent in Conjunction With Warfarin? : Yes Ordered Agents: Enoxaparin Bridging Agent Dose: 70mg BID INR Monitoring Frequency: Monitor INR daily Patient Education : Complete and documented Warfarin dosing and adjustment per CT surgery provider. Transitions of Care Outpatient provider managing warfarin after [facility] discharge: TBD - possibly [facility] Recommended date for outpatient INR assessment: TBD - of note, enoxparin copay $0 for 7 day supply Will continue to follow patient's clinical progress daily. Maria Esther Kent PharmD, ARLEEN, BCCCP, [facility] Critical Care Pharmacist - Cardiothoracic Surgery Contact via secure chat * Gabriel Singh - Maria Esther Kent PharmD - 06/17/2025 9:21 AM EDT Images from the original note were not included. Your Health Checklist: Taking Warfarin Safely - Video Follow this checklist to properly and safely take warfarin. To view the video go to this web address: [email or web address]/3Khhnsw Or, scan this QR code with your smart phone ?? [facility] [facility] * Gabriel Singh - Maria Esther Ketn PharmD - 06/17/2025 9:21 AM EDT Images from the original note were not included. Your Health Checklist: Preventing Injuries While Taking Warfarin - Video Follow this checklist to help prevent common injuries while on warfarin, and what to do in case of emergency. To view the video go to this web address: https://[email or web address].[employer]/[email or web address] Or, scan this QR code with your smart phone ?? [employer] [facility] * Maria Esther Houston PharmD - 06/17/2025 9:21 AM EDT Images from the original note were not included. Warfarin: Your INR Goal - Video Understand what the INR test measures, and what your healthy INR level should be. To view the video go to this web address: [email or web address].[employer]/[email or web address] Or, scan this QR code with your [...] the video go to this web address: https://bit.ly/6BK0Yzn Or, scan this QR code with your [...] Certain other vegetables and fruits, including asparagus, [place] sprouts, and kiwifruit ? Certain soy products, such as natto (a traditional [place] Zealander dish of fermented soybeans) Some vegetable oils [...] reduced-fat cheese, served with a whole grain [place] muffin ? A grilled chicken sandwich on whole grain bread with raw spinach*, tomato slices, and mustard ? Oven-roasted fish served with steamed broccoli* and medley of whole grain pasta, carrots, onions,and mushrooms * Foods higher in vitamin K Last Reviewed Date: 2025 00:00:00 ?? 1355-7160 The [employer]. All rights reserved. This information is not intended as a substitute for professional medical care. Always follow your healthcare professional's instructions. * Gabriel GonsalezALONZO - Maria Esther Kent, PharmD - 06/17/2025 [...] phone ?? [employer] [facility] * Maria Esthre Houston PharmD - 06/17/2025 9:21 AM EDT Images from the original note were not included. Warfarin and Food - Video Learn which foods can affect how your warfarin therapy is working. To view the video go to this web address: https://bit.ly/5I2DUbN Or, scan this QR code with your smart phone ?? [employer] * Maria Esther Houston PharmD - 06/17/2025 9:21 AM EDT Images from the original note were not included. [id number] Warfarin IMPORTANT WARNING: Warfarin may cause severe [...] doctor or pharmacist will give you the first officer and flight instructor's patient information sheet (Medication Guide) when you begin treatment with warfarin and each time you refill your prescription. Read the information carefully and ask your doctor or pharmacist if you have any questions. You can also visit the Food and Drug Administration (FDA) website (https://www.fda.gov/downloads/Drugs/DrugSafety/eqs998658.pdf) or the first officer and flight instructor's website to obtain the Medication Guide. Talk [...] amounts of vitamin K-containing food on a ymfh-jc-gxdo basis. Do not eat large amounts of [...] be awakened, immediately call emergency services at 810. Symptoms of overdose may include the following: [...] of all of the prescription and nonprescription (ehvr-rgn-muexfmi) medicines, vitamins, minerals, and dietary supplements you [...] or pharmacist about specific clinical use. The [place] [employer] represents that the information provided hereunder was formulated with a reasonable standard of care, and in conformity with professional standards in the field. The [place] [employer] makes no representations or warranties, express or implied, including, but not limited to, any implied warranty of merchantability and/or fitness for a particular purpose, with respect to such information and specifically disclaims all such warranties. 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 The entire monograph for a drug should be reviewed for a thorough understanding of the drug's actions, uses and side effects. The [place] [employer] does not endorse or recommend the use of any drug.The information is not a substitute for medical care. AHFS?? Patient Medication Information?. ?? Copyright, 2023. The [place] [employer]??, [address], [address], [place], [place]. All Rights Reserved. Duplication for commercial use must be authorized by [facility]. Selected Revisions: February 13, 2017. AHFS?? Patient [...] Progressing Intervention: Optimize Glycemic Control Flowsheets (Taken 06/17/2025 0109) Glycemic Management: blood glucose monitored Goal: Absence [...] Ongoing, Progressing Intervention: Promote Activity and Functional [place] Flowsheets (Taken 06/17/2025108) Activity Assistance Provided: assistance, 1 person Self-Care Promotion: independence encouraged Problem: Self-Care Deficit Goal: Improved Ability to Complete Activities of Daily Living Outcome: Ongoing, Progressing Intervention: Promote Activity and Functional [place] Flowsheets (Taken 06/17/2025108) Activity Assistance Provided: assistance, [...] Device Utilized: four wheel walker Taken 06/17/2025 0000 Activity Management: dorsiflexion/plantar flexion performed Goal: Absence [...] Not Progressing Goal: Effective Cardiac Function 06/16/2025 152 by Fariba Blanton RN [...] Blood Glucose Level Within Target Range 06/16/2025 152 by Fariba Blanton RN Outcome: [...] Goal: Optimal Coping 06/16/2025 152 by Fariba Blanton, HESHAM Outcome: Ongoing, Progressing 06/16/2025 1526 by Fariba Blanton, HESHAM Outcome: Ongoing, Not Progressing Goal: Optimal Functional [...] Note Bradley Forrest 69 y.o. male CSN: [id number] Admission: 06/14/2025 5:18 AM Primary Problem: Severe [...] Problem(s): Weaning from mechanically assisted ventilation initiated ([facility]) (Mgnsriii34/20/2025) Arrived intubated and sedated post-op - fast [...] 06/14/25 Brachial 06/14/25 0808 Brachial 2 GCS: Rolfe Coma Scale Score: 15 Review of Systems [...] post median sternotomy. Interval removal of the [place]-Ganzcatheter, right IJ sheath remains in place with tip in the mid to distal SVC. No pneumothorax or pleural effusions. Ongoing interstitial edema. 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) OBJECTIVE & INTERVENTIONS PAIN Pain [...] ACTIVITY Treatment Minutes 24 TRANSFERS Level of [place] Physical/Non- physical Assist Adaptive Equipment Utilized Sit to Stand Contact guard Verbal Cues, Additional assist utilized for safety, 1 person + 1 person to manage equipment (verbal cuing for sternal precautions) Stand to sit Contact guard Verbal Cues, 1 person + 1 person to manage equipment Interventions BALANCE Postural Appearance Posture: Rounded shoulders Level of [place] Balance Support Interventions Static Sit Standby assist Feet supported Dynamic Sit Contact guard Feet supported Static Stand Standby assist Right upper extremity support, Left upper extremity support Pt with mild dizziness when coming to stand from sitting which subsided with roughly 30 seconds of static standing Dynamic Stand Standby assist Right upper extremity support, Left upper extremity support AMBULATION Level of [place] Distance Adaptive Equipment Utilized Ambulation Standby assist, [...] Plan Anticoagulation Plan Warfarin Pharmacist Managed?: No [facility] Warfarin Dosing Protocol Followed?: No Reason [...] clinical progress daily. Frank BrothersD PGY-2 Cardiology Invasive Cardiovascular Technologist Available via Secure Chat * Progress Notes [...] Intervention: Prevent or Manage Pain Flowsheets Taken 06/15/20258 Pain Management Interventions: medication (see MAR) Taken [...] Ongoing, Progressing Intervention: Promote Activity and Functional [place] Flowsheets Taken 06/15/20251699 by Bony Thomas RN [...] Ongoing, Progressing Intervention: Promote Activity and Functional [place] Flowsheets Taken 06/15/2025 1700 by Bony Thomas RN Activity Assistance Provided: assistance, stand-by Taken 06/14/20252154 by Svetlana Reilly RN Self-Care Promotion: independence encouraged * Consults - Nat Singletary RD - 06/15/2025 2:23 PM EDTAssociated Order(s): IP CONSULT TO NUTRITION SERVICES Adult Nutrition Evaluation Note Bradley Forrest 69 y.o. male CSN: [id number] Room/Bed 234/234A Nutrition evaluation type: assessment Reason [...] Risk Score: 38 Most Recent BM Date: (GERM DRIER) GI Symptoms: Nausea, Vomiting Edema: Generalized Allergies: [...] 30.07 Weight Evaluation: Obese-Class 1 (BMI 30-34.9) [place] Body Weight (kg): 67.3 Percent [place] Body Weight: 130 Adjusted Body Weight (kg): 72.4 Estimated Needs: Kcal/ K-28 Kcal Provided: Metabolic Cart Study Results: Current Nutrition Intake: Diet Order: Adult Diet Diet Texture: Clear liquid Adult Carbohydrate Restriction: Consistent CHO 2 (8075-4229 Venkat, 80 g/meal) Fat Restriction: Cardiac Percent Meals Eaten (%): establishing Diet Experience and Nutrition History: Diet Education Provided: Will monitor Pertinent home medications: Faith needs: Nutrition Focused Physical Exam: Physical exam performed on (date): 06/15 Temples (muscles): None Clavicle (muscle): None Shoulder (muscle): None Orbital (fat): None Triceps (fat): None Energy Intake: reported adequate GERM DRIER Weight Loss: denies Assessment of Malnutrition: Malnutrition [...] Note Bradley Forrest 69 y.o. male CSN: [id number] Admission: 06/14/2025 5:18 AM Primary Problem: Severe aortic regurgitation Vocational Placement Specialist reviewed chart and spoke with the patient at bedside to complete this Initial Case Management Assessment. PCP: Kamran Singh MD Emergency Contact: Extended Emergency Contact Information Primary Emergency Contact: Naheed Forrest Address: [address] [place] [address] [facility] [place] Relation: Spouse Insurance: Primary Visit Coverage Payer Plan Sponsor Code Group Number Group Name [facility] [id number] Primary Visit Coverage Subscriber Subscriber ID Subscriber Name Subscriber N Subscriber Address [id number] Bradley Forrest [id number] [id number] Secondary Visit Coverage Payer Plan Sponsor Code Group Number Group Name MEDICARE MEDICARE A & B Secondary Visit Coverage Subscriber Subscriber ID Subscriber Name Subscriber N Subscriber Address [id number] Bradley Forrest [id number] Patient information: Primary Caregiver: Self Support System: Immediate family Daily Living Activities: Functional Status: Independent Living Arrangements: Spouse/Significant other Type of Residence: Private residence, Single Level [address] [place] [address] Current DME: Equipment Currently Used at Home: [...] DME Provider: n/a Living Will/Advance Directive/Power of Strap Maker /Guardian: Unable to assess: No Have you [...] prior HH/O2/HD/Abx. PCP is Kamran Singh. Has [employer] insurance and uses [facility]. Family to transport and assist as [...] Plan Anticoagulation Plan Warfarin Pharmacist Managed?: No [facility] Warfarin Dosing Protocol Followed?: No Reason for Protocol Departure: CT Surgery Bridging Agent in Conjunction With Warfarin? : No INR Monitoring Frequency: Monitor INR daily Patient Education : Incomplete Warfarin dosing and adjustment per CT surgery provider. Transitions of Care Outpatient provider managing warfarin after [facility] discharge: TBD Recommended date for outpatient INR assessment: TBD Will continue to follow patient's clinical progress daily. Sy Fernández PharmD PGY-2 Cardiology Invasive Cardiovascular Technologist Available via Secure Chat * Assessment & [...] Weaning from mechanically assisted ventilation initiated (CMS/HCC) (Odivtbqw76/20/2025) Arrived intubated and sedated post-op - fast [...] Weaning from mechanically assisted ventilation initiated (CMS/HCC) (Eolqllxm78/20/2025) Arrived intubated and sedated post-op - fast [...] 06/15/2025 Weaning from mechanically assisted ventilation initiated ([facility]) 06/14/2025 Diabetes 05/05/2025 Benign prostatic hyperplasia 05/05/2025 CAD (coronary artery disease) 04/14/2025 History of coronary angioplasty with insertion of stent 04/14/2025 Ascending aortic aneurysm ([facility]) 04/14/2025 Aortic valve regurgitation 04/14/2025 BMI [...] 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) Level of Mobility: Ambulatory- community Mobility [place]: Independent gait without device History of Falls: [...] Mobility Exam: Sit to Supine Level of [place]: Maximum assist (25% patient's effort) Physical/Nonphysical Assist: Verbal Cues, Maximal cues, Additional assist utilized for safety Transfers Transfer Exam: Sit to stand Level of [place]: Moderate assist (50% patient's effort) Physical/Nonphysical Assist: Verbal Cues, Moderate cues, Additional assist utilized for safety Assistive Device: Rollator Transfer Exam: Stand to Sit Level of [place]: Minimum assist (75% patient's effort) Physical/Nonphysical Assist: [...] activity. Standardized Assessments Standardized Assessments Standardized Assessments: [facility] 6-Clicks Mobility Assessment [facility] 6-Clicks Mobility Assessment Difficulty patient has [...] 3-5 steps with a railing?: A little [facility] 6-Clicks Mobility Assessment Total : 16 [...] 06/15/2025 Weaning from mechanically assisted ventilation initiated ([facility]) 06/14/2025 Diabetes 05/05/2025 Benign prostatic hyperplasia 05/05/2025 CAD (coronary artery disease) 04/14/2025 History of coronary angioplasty with insertion of stent 04/14/2025 Ascending aortic aneurysm ([facility]) 04/14/2025 Aortic valve regurgitation 04/14/2025 BMI [...] 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) Level of Mobility: Ambulatory- community Mobility [place]: Independent gait without device History of Falls: [...] Mobility Exam: Sit to Supine Level of [place]: Maximum assist (25% patient's effort) Physical/Nonphysical Assist: Verbal Cues, Maximal cues, Additional assist utilized for safety Transfers Transfer Exam: Sit to stand Level of [place]: Moderate assist (50% patient's effort) Physical/Nonphysical Assist: Verbal Cues, Moderate cues, Additional assist utilized for safety Assistive Device: Rollator Transfer Exam: Stand to Sit Level of [place]: Minimum assist (75% patient's effort) Physical/Nonphysical Assist: [...] continued education to improve carryover. Standardized Assessments [facility] 6-Click Daily Activities Help from Other: Don/Doff Regular Lower Body Clothings: A lot Help From Other: Bathing: A lot Help From Other: Toileting: A lot Help From Other: Don/Doff Upper Body Clothings: Little Help From Other: Grooming: Little Help From Other: Eating Meals: None [facility] 6 Click - Daily Activities Score: 16 [...] Right 06/14/25 0832 Internal jugular 1 GCS: Rolfe Coma Scale Score: 15 Review of Systems 14 point ROS reviewed and otherwise negative or unobtainable except as noted above or in HPI. Vital signs: Vitals: 06/15/25 0800 BP: Pulse: 79 Resp: 20 Temp: 37.7 ??C (99.9 ??F) SpO2: 94% Intake/Output Summary (Last 24 hours) at 06/15/2025 09 Last data filed at 06/15/2025 08 Gross per 24 hour Intake 1321.93 ml [...] of NG tube. Right internal jugular approach [place]-Shira catheter and mediastinal drain in unchanged position. [...] per protocol. -SBP<120 in initial post-op period -clevidiganesh Rutledge DO * Progress Notes - Phillip [...] Problem(s): Weaning from mechanically assisted ventilation initiated ([facility]) (Bzyjrcsv36/20/2025) Arrived intubated and sedated post-op - fast [...] for analgesia prior to leaving the OR. [facility] services were consulted for management of [...] 1.4 and on Epi .03, pressure support 8/ Edited by: Balta [place], FOREIGN POLICY OFFICER, DNP at 06/14/2025 2253 Lines/Drains/Tubes: Patient Lines/Drains/Airways [...] Ongoing, Progressing Intervention: Promote Activity and Functional [place] Flowsheets (Taken 06/14/20252154) Activity Assistance Provided: assistance, [...] Weaning from mechanically assisted ventilation initiated (CMS/HCC) (Snpwomuc34/20/2025) Arrived intubated and sedated post-op - fast [...] for analgesia prior to leaving the OR. [facility] services were consulted for management of [...] 06/14/25 1327 Mediastinal less than 1 NG/OG Hazard Sump Orogastric 18 Fr Center mouth 06/14/25 [...] 2 tablets by mouth every morning. Under [employer] law, monthly prescriptions (30 days) can be refilled at 25 days and three-month prescriptions (90 days) at 80 days. Please contact the insurance company with questions if refills are denied. (Patient taking differently: Take 2 tablets by mouth every 4 hours as needed. Under [employer] law, monthly prescriptions (30 days) can be [...] Saint Jose mechanical prosthesis. Date: 06/14/25 Location: [facility] Name: Bradley Forrest, : 1955, Diagnoses: Pre-op Diagnosis Severe aortic regurgitation Post-op Diagnosis Severe aortic regurgitation Coronary artery disease due to calcified coronary lesion History of coronary angioplasty with insertion of stent Left ventricular enlargement Procedure(s): Median sternotomy, aortic valve replacement using a 25 mm [place] mechanical prosthesis. Attending Surgeon(s): * Phillip Clark - Primary Senior Outside Sales Representative(s): * Turner Pablo MD - Fellow Anesthesia: General ASA: IV Blood Administration: Blood Product Administration History None Estimated Blood Loss: 150 mL Drains: Chest Tube Mediastinal 36 Fr (Active) Function -20 cm H2O 06/14/25 1600 Chest Tube Air Leak No 06/14/25 1600 Patency Intervention Tip/tilt 06/14/25 1600 Drainage Description Dark red 06/14/25 1600 NG/OG Hazard Sump Orogastric 18 Fr Center mouth (Active) Urethral Catheter Temperature probe 16 Fr. (Active) Implants Type Name Action Serial No. GRAFT PTCH [id number] FELT - [id number] Implanted VALVE ATRIAL 25MM ROTATABL CUF STD PTFE - [id number] - [id number] Implanted [id number] Specimen: Specimens ID Source Frozen? 1 Heart [...] stenting of his coronaries. In addition his call center analyst, Jd Duvall, had done an echocardiogram [...] was induced, monitoring lines were placed, a [place]-Shira catheter was floated into position and a [...] Prolene and a tack seal. One 36 [place] chest tube was placed. Chest tubes and pacing wires were secured to the anterior abdominal wall. The sternum was reapproximated with #7 kaqrhb-wl-ntety stainless steel wires, the fasciawas closed with [...] 2 tablets by mouth every morning. Under [employer] law, monthly prescriptions (30 days) can be refilled at 25 days and three-month prescriptions (90 days) at 80 days. Please contact the insurance company with questions if refills are denied. Patient taking differently: Take 2 tablets by mouth every 4 hours as needed. Under [employer] law, monthly prescriptions (30 days) can be [...] Description 07/07/2025 1:40 PM EST Clinical Support [facility] [address], [address] [place] [address] 07/07/2025 2:40 PM EST Office Visit [facility] [address], [address] [place] [address] Phillip Clark MD [address] [facility] [address] [place] [address] Pending Results Name Type Priority Associated Diagnoses [...] PANEL, PLASMA Routine 06/16/2025 5:35 PM EDT [place] [facility], E/M 30-74 MINUTES Routine 06/16/2025 [...] PEP THERAPY Routine 06/15/2025 12:00 PM EDT [place] [facility], E/M 30-74 MINUTES Routine 06/15/2025 [...] 1 VIEW Routine 06/15/2025 2:53 AM EDT [facility], ADDL 30 MIN Routine 06/15/2025 12:21 AM EDT Other secondary hypertension [place] [facility], ADDL 30 MIN Routine 06/15/2025 [...] PANEL, ARTERIAL Routine 06/14/2025 6:47 PM EDT [place] [facility], E/M 30-74 MINUTES Routine 06/14/2025 [...] UNSOLICITED RESULTS Routine 06/14/2025 8:13 AM EDT [place] -AORT GRF W/CARD BYP F/AORTIC DISSECTION 06/14/2025 [...] - 99 mg/dL 06/20/2025 2:47 AM EDT [facility] BUN, Plasma 22 8 - 23 mg/dL 06/20/2025 2:47 AM EDT [facility] Creatinine, Plasma 0.85 0.70 - 1.20 mg/dL 06/20/2025 2:47 AM EDT [facility] BUN/Creatinine Ratio 26 06/20/2025 2:47 AM EDT [facility] Sodium, Plasma 131(L) 136 - 145 mmol/L 06/20/2025 2:47 AM EDT [facility] Potassium, Plasma 4.0 3.6 - 4.9 mmol/L 06/20/2025 2:47 AM EDT [facility] Chloride, Plasma 102 97 - 107 mmol/L 06/20/2025 2:47 AM EDT [facility] CO2, Plasma 24 22 - 29 mmol/L 06/20/2025 2:47 AM EDT [facility] Anion Gap 5(L) 6 - 16 mmol/L 06/20/2025 2:47 AM EDT [facility] Total Calcium, Plasma 7.9(L) 8.9 - 10.2 mg/dL 06/20/2025 2:47 AM EDT [facility] eGFRcr 94.1 mL/min/1.7 3m*2 06/20/2025 2:47 AM EDT [facility] Comment:Reported eGFRcr in m L/min/1.73m2 is based the CKD-EPI 2020 equation that does not use a race coefficient. Blood Venous blood specimen / Unknown Venipuncture / Unknown 06/20/2025 1:52 AM EDT 06/20/2025 1:59 AM EDT Phillip Clark MD LAB BLOOD ORDERABLES Final R esult Performing Organization Address City/[facility]/ZIP Co de Phone Number [facility] [address] [place] [address] * Phosphorus (06/20/2025 1:52 AM EDT) Phosphorus, Plasma 2.8 2.5 - 4.5 mg/dL 06/20/2025 2:23 AM EDT [facility] Blood Venous blood specimen / Unknown Venipuncture / Unknown 06/20/2025 1:52 AM EDT 06/20/2025 1:59 AM EDT Phillip Clark MD LAB BLOOD ORDERABLES Final R esult [facility] [address] [place] [address] * (ABNORMAL) Protime-INR (06/20/2025 1:52 AM EDT) Prothrombin Time 30.4(H) 12.0 - 14.3 sec LAB COAGULATION METHOD 06/20/2025 2:29 AM EDT [facility] INR 2.9(H) 0.9 - 1.1 LAB COAGULATION METHOD 06/20/2025 2:29 AM EDT [facility] Blood Venous blood specimen / Unknown Venipuncture / Unknown 06/20/2025 1:52 AM EDT 06/20/2025 1:59 AM EDT Narrative [facility] - 06/20/2025 2:29 AM EDT OPTIMAL INR RANGES FOR PATIENT ON ORAL ANTICOAGULANT THERAPY Prevention of venous thromboembolism INR 2.0 to 3.0 In patients with heart disease: Atrial fibrillation INR 2.0 to 3.0 Valvular heart disease INR 2.0 to 3.0 Tissue heart valves INR 2.0 to 3.0 Mechanical prosthetic valves INR 2.5 to 3.5 Prevention of recurrent AR INR 2.5 to 3.5 Phillip Clark MD LAB BLOOD ORDERABLES Final R esult Performing Organization Address [facility] Co de Phone Number [facility] [address] [place] [address] * Magnesium (06/20/2025 1:52 AM EDT) Magnesium, Plasma 2.2 1.9 - 2.4 mg/dL 06/20/2025 2:23 AM EDT [facility] Blood Venous blood specimen / Unknown Venipuncture / Unknown 06/20/2025 1:52 AM EDT 06/20/2025 1:59 AM EDT us Phillip Clark MD LAB BLOOD ORDERABLES Final R esult Performing Organization Address [facility] Co de Phone Number [facility] [address] [place] [address] * (ABNORMAL) CBC (06/20/2025 1:52 AM EDT) WBC Count 6.95 3.70 - 10.30 10*3/uL LAB HEMATOLOGY METHOD 06/20/2025 2:07 AM EDT [facility] RBC Count 3.73(L) 4.60 - 6.10 10*6/uL LAB HEMATOLOGY METHOD 06/20/2025 2:07 AM EDT [facility] HGB 10.4(L) 13.7 - 17.5 g/dL LAB HEMATOLOGY METHOD 06/20/2025 2:07 AM EDT [facility] HCT 31.9(L) 40.0 - 51.0 % LAB HEMATOLOGY METHOD 06/20/2025 2:07 AM EDT [facility] Platelet Count 187 155 - 369 10*3/uL LAB HEMATOLOGY METHOD 06/20/2025 2:07 AM EDT [facility] MCV 86 79 - 98 fL LAB HEMATOLOGY METHOD 06/20/2025 2:07 AM EDT [facility] MCH 27.9 26.0 - 32.0 pg LAB HEMATOLOGY METHOD 06/20/2025 2:07 AM EDT [facility] MCHC 32.6 30.7 - 35.5 g/dL LAB HEMATOLOGY METHOD 06/20/2025 2:07 AM EDT [facility] RDW 14.8(H) 11.5 - 14.5 % LAB HEMATOLOGY METHOD 06/20/2025 2:07 AM EDT [facility] MPV 10.2 8.8 - 12.5 fL LAB HEMATOLOGY METHOD 06/20/2025 2:07 AM EDT [facility] nRBC 0.0 <=0.0 per 100 WBCs LAB HEMATOLOGY METHOD 06/20/2025 2:07 AM EDT [facility] Blood Venous blood specimen / Unknown Venipuncture / Unknown 06/20/2025 1:52 AM EDT 06/20/2025 1:59 AM EDT us Phillip Clark MD LAB BLOOD ORDERABLES Final R esult [facility] [address] [place] [address] * PERIPHERAL IV (SMARTFORM LINK) (06/20/2025 1:47 [...] ECG Atrial Rate 85 BPM MUSE ECG [place] Interval 176 ms MUSE ECG QRSD Interval 110 ms MUSE ECG QT Interval 402 ms MUSE ECG QTC Interval 478 ms MUSE ECG P [place] 43 degrees MUSE ECG R [place] -30 degrees MUSE ECG T Wave [place] 36 degrees MUSE ECG Diagnosis Poor data quality, interpretation may be adversely affected MUSE ECG Diagnosis Sinus rhythm with premature supraventricular complexes and with occasional premature ventricular complexes MUSE ECG Diagnosis Left axis deviation MUSE ECG Diagnosis Poor R-wave progression MUSE ECG Diagnosis Abnormal ECG MUSE ECG Diagnosis Recommend repeat ECG MUSE ECG Diagnosis MUSE ECG Diagnosis Confirmed by Aman Coe ([id number]) on 06/19/2025 1:33:10 PM MUSE ECG 06/19/2025 12:4 9 PM EDT 06/19/2025 1:33 PM EDT us Barbara MARIE ECG ORDERABLES Final Resul t MUSE ECG * (ABNORMAL) Basic metabolic panel (06/19/2025 2:38 AM EDT) Glucose, Plasma 102(H) 74 - 99 mg/dL 06/19/2025 4:10 AM EDT [facility] BUN, Plasma 25(H) 8 - 23 mg/dL 06/19/2025 4:10 AM EDT [facility] Creatinine, Plasma 1.02 0.70 - 1.20 mg/dL 06/19/2025 4:10 AM EDT [facility] BUN/Creatinine Ratio 25 06/19/2025 4:10 AM EDT [facility] Sodium, Plasma 134(L) 136 - 145 mmol/L 06/19/2025 4:10 AM EDT [facility] Potassium, Plasma 4.6 3.6 - 4.9 mmol/L 06/19/2025 4:10 AM EDT [facility] Comment:Hemolyzed - Potassiu m may be falsely elevated by approximately 0.4-0.7 mmol/L. Chloride, Plasma 102 97 - 107 mmol/L 06/19/2025 4:10 AM EDT [facility] CO2, Plasma 23 22 - 29 mmol/L 06/19/2025 4:10 AM EDT [facility] Anion Gap 9 6 - 16 mmol/L 06/19/2025 4:10 AM EDT [facility] Total Calcium, Plasma 8.4(L) 8.9 - 10.2 mg/dL 06/19/2025 4:10 AM EDT [facility] eGFRcr 79.6 mL/min/1.7 3m*2 06/19/2025 4:10 AM EDT [facility] Comment:Reported eGFRcr in m L/min/1.73m2 is based the CKD-EPI 2020 equation that does not use a race coefficient. Blood Venous blood specimen / Unknown Venipuncture / Unknown 06/19/2025 2:38 AM EDT 06/19/2025 2:54 AM EDT Phillip Clark MD LAB BLOOD ORDERABLES Final R esult [facility] [address] [place] [address] * Phosphorus (06/19/2025 2:38 AM EDT) Phosphorus, Plasma 3.6 2.5 - 4.5 mg/dL 06/19/2025 4:10 AM EDT [facility] Blood Venous blood specimen / Unknown Venipuncture / Unknown 06/19/2025 2:38 AM EDT 06/19/2025 2:54 AM EDT us Phillip Clark MD LAB BLOOD ORDERABLES Final R esult Performing Organization Address [facility]/ZIP Co de Phone Number [facility] [address] [place] [address] * (ABNORMAL) Protime-INR (06/19/2025 2:38 AM EDT) Prothrombin Time 26.3(H) 12.0 - 14.3 sec LAB COAGULATION METHOD 06/19/2025 3:09 AM EDT [facility] INR 2.4(H) 0.9 - 1.1 LAB COAGULATION METHOD 06/19/2025 3:09 AM EDT [facility] Blood Venous blood specimen / Unknown Venipuncture / Unknown 06/19/2025 2:38 AM EDT 06/19/2025 2:54 AM EDT Narrative [facility] - 06/19/2025 3:09 AM EDT OPTIMAL INR RANGES FOR PATIENT ON ORAL ANTICOAGULANT THERAPY Prevention of venous thromboembolism INR 2.0 to 3.0 In patients with heart disease: Atrial fibrillation INR 2.0 to 3.0 Valvular heart disease INR 2.0 to 3.0 Tissue heart valves INR 2.0 to 3.0 Mechanical prosthetic valves INR 2.5 to 3.5 Prevention of recurrent AR INR 2.5 to 3.5 Phillip Clark MD LAB BLOOD ORDERABLES Final R esult Performing Organization Address [facility] Co de Phone Number [facility] [address] [place] [address] * Magnesium (06/19/2025 2:38 AM EDT) Magnesium, Plasma 2.4 1.9 - 2.4 mg/dL 06/19/2025 4:10 AM EDT [facility] Blood Venous blood specimen / Unknown Venipuncture / Unknown 06/19/2025 2:38 AM EDT 06/19/2025 2:54 AM EDT Phillip Clark MD LAB BLOOD ORDERABLES Final R esult [facility] [address] [place] [address] * (ABNORMAL) CBC (06/19/2025 2:38 AM EDT) WBC Count 6.94 3.70 - 10.30 10*3/uL LAB HEMATOLOGY METHOD 06/19/2025 3:17 AM EDT [facility] RBC Count 4.12(L) 4.60 - 6.10 10*6/uL LAB HEMATOLOGY METHOD 06/19/2025 3:17 AM EDT [facility] HGB 11.5(L) 13.7 - 17.5 g/dL LAB HEMATOLOGY METHOD 06/19/2025 3:17 AM EDT [facility] HCT 35.7(L) 40.0 - 51.0 % LAB HEMATOLOGY METHOD 06/19/2025 3:17 AM EDT [facility] Platelet Count 165 155 - 369 10*3/uL LAB HEMATOLOGY METHOD 06/19/2025 3:17 AM EDT [facility] MCV 87 79 - 98 fL LAB HEMATOLOGY METHOD 06/19/2025 3:17 AM EDT [facility] MCH 27.9 26.0 - 32.0 pg LAB HEMATOLOGY METHOD 06/19/2025 3:17 AM EDT [facility] MCHC 32.2 30.7 - 35.5 g/dL LAB HEMATOLOGY METHOD 06/19/2025 3:17 AM EDT [facility] RDW 14.8(H) 11.5 - 14.5 % LAB HEMATOLOGY METHOD 06/19/2025 3:17 AM EDT [facility] MPV 10.6 8.8 - 12.5 fL LAB HEMATOLOGY METHOD 06/19/2025 3:17 AM EDT [facility] nRBC 0.0 <=0.0 per 100 WBCs LAB HEMATOLOGY METHOD 06/19/2025 3:17 AM EDT [facility] Blood Venous blood specimen / Unknown Venipuncture / Unknown 06/19/2025 2:38 AM EDT 06/19/2025 2:54 AM EDT us Phillip Clark MD LAB BLOOD ORDERABLES Final R esult [facility] [address] [place] [address] * XR Chest 1 View (06/19/2025 1:50 [...] - 99 mg/dL 06/18/2025 2:17 AM EDT [facility] BUN, Plasma 18 8 - 23 mg/dL 06/18/2025 2:17 AM EDT [facility] Creatinine, Plasma 0.82 0.70 - 1.20 mg/dL 06/18/2025 2:17 AM EDT [facility] BUN/Creatinine Ratio 22 06/18/2025 2:17 AM EDT [facility] Sodium, Plasma 134(L) 136 - 145 mmol/L 06/18/2025 2:17 AM EDT [facility] Potassium, Plasma 3.7 3.6 - 4.9 mmol/L 06/18/2025 2:17 AM EDT [facility] Chloride, Plasma 100 97 - 107 mmol/L 06/18/2025 2:17 AM EDT [facility] CO2, Plasma 26 22 - 29 mmol/L 06/18/2025 2:17 AM EDT [facility] Anion Gap 8 6 - 16 mmol/L 06/18/2025 2:17 AM EDT [facility] Total Calcium, Plasma 8.1(L) 8.9 - 10.2 mg/dL 06/18/2025 2:17 AM EDT [facility] eGFRcr 95.1 mL/min/1.7 3m*2 06/18/2025 2:17 AM EDT [facility] Comment:Reported eGFRcr in m L/min/1.73m2 is based the CKD-EPI 2020 equation that does not use a race coefficient. Blood Blood sample taken from central line / Unknown Venipuncture / Unknown 06/18/2025 1:43 AM EDT 06/18/2025 1:48 AM EDT Phillip Clark MD LAB BLOOD ORDERABLES Final R esult Performing Organization Address City/[facility]/ZIP Co de Phone Number [facility] [address] [place] [address] * Phosphorus (06/18/2025 1:43 AM EDT) Phosphorus, Plasma 2.6 2.5 - 4.5 mg/dL 06/18/2025 2:17 AM EDT [facility] Blood Blood sample taken from central line / Unknown Venipuncture / Unknown 06/18/2025 1:43 AM EDT 06/18/2025 1:48 AM EDT Phillip Clark MD LAB BLOOD ORDERABLES Final R esult Performing Organization Address City/[facility]/ZIP Co de Phone Number [facility] [address] [place] [address] * (ABNORMAL) Protime-INR (06/18/2025 1:43 AM EDT) Prothrombin Time 25.2(H) 12.0 - 14.3 sec LAB COAGULATION METHOD 06/18/2025 2:07 AM EDT [facility] INR 2.3(H) 0.9 - 1.1 LAB COAGULATION METHOD 06/18/2025 2:07 AM EDT [facility] Blood Blood sample taken from central line / Unknown Venipuncture / Unknown 06/18/2025 1:43 AM EDT 06/18/2025 1:48 AM EDT Narrative [facility] - 06/18/2025 2:07 AM EDT OPTIMAL INR RANGES FOR PATIENT ON ORAL ANTICOAGULANT THERAPY Prevention of venous thromboembolism INR 2.0 to 3.0 In patients with heart disease: Atrial fibrillation INR 2.0 to 3.0 Valvular heart disease INR 2.0 to 3.0 Tissue heart valves INR 2.0 to 3.0 Mechanical prosthetic valves INR 2.5 to 3.5 Prevention of recurrent AR INR 2.5 to 3.5 Phillip Clark MD LAB BLOOD ORDERABLES Final R esult Performing Organization Address [facility]/ZIP Co de Phone Number [facility] [address] [place] [address] * Magnesium (06/18/2025 1:43 AM EDT) [facility] Magnesium, Plasma 2.3 1.9 - 2.4 mg/dL 06/18/2025 2:17 AM EDT [facility] Blood Blood sample taken from central line / Unknown Venipuncture / Unknown 06/18/2025 1:43 AM EDT 06/18/2025 1:48 AM EDT Phillip Clark MD LAB BLOOD ORDERABLES Final R esult Performing Organization Address City/[facility] Co de Phone Number [facility] [address] [place] [address] * (ABNORMAL) CBC (06/18/2025 1:43 AM EDT) [facility] [employer] Signature WBC Count 8.51 3.70 - 10.30 10*3/uL LAB HEMATOLOGY METHOD 06/18/2025 1:54 AM EDT [facility] RBC Count 3.67(L) 4.60 - 6.10 10*6/uL LAB HEMATOLOGY METHOD 06/18/2025 1:54 AM EDT [facility] HGB 10.6(L) 13.7 - 17.5 g/dL LAB HEMATOLOGY METHOD 06/18/2025 1:54 AM EDT [facility] HCT 31.2(L) 40.0 - 51.0 % LAB HEMATOLOGY METHOD 06/18/2025 1:54 AM EDT [facility] Platelet Count 121(L) 155 - 369 10*3/uL LAB HEMATOLOGY METHOD 06/18/2025 1:54 AM EDT [facility] MCV 85 79 - 98 fL LAB HEMATOLOGY METHOD 06/18/2025 1:54 AM EDT [facility] MCH 28.9 26.0 - 32.0 pg LAB HEMATOLOGY METHOD 06/18/2025 1:54 AM EDT [facility] MCHC 34.0 30.7 - 35.5 g/dL LAB HEMATOLOGY METHOD 06/18/2025 1:54 AM EDT [facility] RDW 14.7(H) 11.5 - 14.5 % LAB HEMATOLOGY METHOD 06/18/2025 1:54 AM EDT [facility] MPV 10.4 8.8 - 12.5 fL LAB HEMATOLOGY METHOD 06/18/2025 1:54 AM EDT [facility] nRBC 0.0 <=0.0 per 100 WBCs LAB HEMATOLOGY METHOD 06/18/2025 1:54 AM EDT [facility] Blood Blood sample taken from central line / Unknown Venipuncture / Unknown 06/18/2025 1:43 AM EDT 06/18/2025 1:48 AM EDT us Phillip Clark MD LAB BLOOD ORDERABLES Final R esult Performing Organization Address City/State/[facility] Co de Phone Number [facility] [address] [place] [address] * XR Chest 1 View (06/17/2025 3:14 [...] Idania Edmonds MD on 06/17/2025 9:48 AM Phillip Clark MD IMG XR PROCEDURES Final Resu lt * (ABNORMAL) Basic metabolic panel (06/17/2025 12:17 AM EDT) [facility] Glucose, Plasma 88 74 - 99 mg/dL 06/17/2025 12:54 AM EDT [facility] BUN, Plasma 15 8 - 23 mg/dL 06/17/2025 12:54 AM EDT [facility] Creatinine, Plasma 0.81 0.70 - 1.20 mg/dL 06/17/2025 12:54 AM EDT [facility] BUN/Creatinine Ratio 19 06/17/2025 12:54 AM EDT [facility] Sodium, Plasma 133(L) 136 - 145 mmol/L 06/17/2025 12:54 AM EDT [facility] Potassium, Plasma 3.9 3.6 - 4.9 mmol/L 06/17/2025 12:54 AM EDT [facility] Chloride, Plasma 98 97 - 107 mmol/L 06/17/2025 12:54 AM EDT [facility] CO2, Plasma 25 22 - 29 mmol/L 06/17/2025 12:54 AM EDT [facility] Anion Gap 10 6 - 16 mmol/L 06/17/2025 12:54 AM EDT [facility] Total Calcium, Plasma 8.1(L) 8.9 - 10.2 mg/dL 06/17/2025 12:54 AM EDT [facility] eGFRcr 95.4 mL/min/1.7 3m*2 06/17/2025 12:54 AM EDT [facility] Comment:Reported eGFRcr in m L/min/1.73m2 is based the CKD-EPI 2020 equation that does not use a race coefficient. Blood Blood sample taken from central line / Unknown Venipuncture / Unknown 06/17/2025 12:17 AM EDT 06/17/2025 12:24 AM EDT us Phillip Clark MD LAB BLOOD ORDERABLES Final R esult Performing Organization Address City/[facility]/ZIP Co de Phone Number [facility] [address] [place] [address] * Phosphorus (06/17/2025 12:17 AM EDT) Phosphorus, Plasma 2.9 2.5 - 4.5 mg/dL 06/17/2025 12:54 AM EDT [facility] Blood Blood sample taken from central line / Unknown Venipuncture / Unknown 06/17/2025 12:17 AM EDT 06/17/2025 12:24 AM EDT us Phillip Clark MD LAB BLOOD ORDERABLES Final R esult Performing Organization Address City/[facility]/ZIP Co de Phone Number [facility] [address] [place] [address] * (ABNORMAL) Protime-INR (06/17/2025 12:17 AM EDT) Prothrombin Time 18.7(H) 12.0 - 14.3 sec LAB COAGULATION METHOD 06/17/2025 1:16 AM EDT [facility] INR 1.5(H) 0.9 - 1.1 LAB COAGULATION METHOD 06/17/2025 1:16 AM EDT [facility] Blood Blood sample taken from central line / Unknown Venipuncture / Unknown 06/17/2025 12:17 AM EDT 06/17/2025 12:24 AM EDT Narrative [facility] - 06/17/2025 1:16 AM EDT OPTIMAL INR RANGES FOR PATIENT ON ORAL ANTICOAGULANT THERAPY Prevention of venous thromboembolism INR 2.0 to 3.0 In patients with heart disease: Atrial fibrillation INR 2.0 to 3.0 Valvular heart disease INR 2.0 to 3.0 Tissue heart valves INR 2.0 to 3.0 Mechanical prosthetic valves INR 2.5 to 3.5 Prevention of recurrent AR INR 2.5 to 3.5 us Phillip Clark MD LAB BLOOD ORDERABLES Final R esult [facility] [address] [place] [address] * Magnesium (06/17/2025 12:17 AM EDT) Pathologist [facility] Magnesium, Plasma 2.3 1.9 - 2.4 mg/dL 06/17/2025 12:54 AM EDT [facility] Blood Blood sample taken from central line / Unknown Venipuncture / Unknown 06/17/2025 12:17 AM EDT 06/17/2025 12:24 AM EDT Phillip Clark MD LAB BLOOD ORDERABLES Final R esult [facility] [address] [place] [address] * (ABNORMAL) CBC (06/17/2025 12:17 AM EDT) WBC Count 10.83(H) 3.70 - 10.30 10*3/uL LAB HEMATOLOGY METHOD 06/17/2025 12:32 AM EDT [facility] RBC Count 4.08(L) 4.60 - 6.10 10*6/uL LAB HEMATOLOGY METHOD 06/17/2025 12:32 AM EDT [facility] HGB 11.3(L) 13.7 - 17.5 g/dL LAB HEMATOLOGY METHOD 06/17/2025 12:32 AM EDT [facility] HCT 35.0(L) 40.0 - 51.0 % LAB HEMATOLOGY METHOD 06/17/2025 12:32 AM EDT [facility] Platelet Count 116(L) 155 - 369 10*3/uL LAB HEMATOLOGY METHOD 06/17/2025 12:32 AM EDT [facility] MCV 86 79 - 98 fL LAB HEMATOLOGY METHOD 06/17/2025 12:32 AM EDT [facility] MCH 27.7 26.0 - 32.0 pg LAB HEMATOLOGY METHOD 06/17/2025 12:32 AM EDT [facility] MCHC 32.3 30.7 - 35.5 g/dL LAB HEMATOLOGY METHOD 06/17/2025 12:32 AM EDT [facility] RDW 15.1(H) 11.5 - 14.5 % LAB HEMATOLOGY METHOD 06/17/2025 12:32 AM EDT [facility] MPV 10.3 8.8 - 12.5 fL LAB HEMATOLOGY METHOD 06/17/2025 12:32 AM EDT [facility] nRBC 0.0 <=0.0 per 100 WBCs LAB HEMATOLOGY METHOD 06/17/2025 12:32 AM EDT [facility] Blood Blood sample taken from central line / Unknown Venipuncture / Unknown 06/17/2025 12:17 AM EDT 06/17/2025 12:24 AM EDT us Phillip Clark MD LAB BLOOD ORDERABLES Final R esult [facility] [address] [place] [address] * Magnesium (06/16/2025 5:35 PM EDT) Magnesium, Plasma 2.2 1.9 - 2.4 mg/dL 06/16/2025 7:41 PM EDT [facility] Blood Venous blood specimen / Unknown Venipuncture / Unknown 06/16/2025 5:35 PM EDT 06/16/2025 7:12 PM EDT us Phillip Clark MD LAB BLOOD ORDERABLES Final R esult [facility] [address] [place] [address] * (ABNORMAL) Renal function panel (06/16/2025 5:35 PM EDT) Glucose, Plasma 89 74 - 99 mg/dL 06/16/2025 7:41 PM EDT [facility] BUN, Plasma 15 8 - 23 mg/dL 06/16/2025 7:41 PM EDT [facility] Creatinine, Plasma 0.79 0.70 - 1.20 mg/dL 06/16/2025 7:41 PM EDT [facility] BUN/Creatinine Ratio 19 06/16/2025 7:41 PM EDT [facility] Sodium, Plasma 134(L) 136 - 145 mmol/L 06/16/2025 7:41 PM EDT [facility] Potassium, Plasma 3.8 3.6 - 4.9 mmol/L 06/16/2025 7:41 PM EDT [facility] Chloride, Plasma 98 97 - 107 mmol/L 06/16/2025 7:41 PM EDT [facility] CO2, Plasma 25 22 - 29 mmol/L 06/16/2025 7:41 PM EDT [facility] Anion Gap 11 6 - 16 mmol/L 06/16/2025 7:41 PM EDT [facility] Total Calcium, Plasma 8.4(L) 8.9 - 10.2 mg/dL 06/16/2025 7:41 PM EDT [facility] Phosphorus, Plasma 2.2(L) 2.5 - 4.5 mg/dL 06/16/2025 7:41 PM EDT [facility] Albumin, Plasma 3.4(L) 3.5 - 5.2 g/dL 06/16/2025 7:41 PM EDT [facility] eGFRcr 96.2 mL/min/1.7 3m*2 06/16/2025 7:41 PM EDT [facility] Comment:Reported eGFRcr in m L/min/1.73m2 is based the CKD-EPI 2020 equation that does not use a race coefficient. Blood Venous blood specimen / Unknown Venipuncture / Unknown 06/16/2025 5:35 PM EDT 06/16/2025 7:12 PM EDT us Phillip Clark MD LAB BLOOD ORDERABLES Final R esult [facility] [address] [place] [address] * [place] [facility], E/M 30-74 MINUTES (06/16/2025 9:58 [...] - 99 mg/dL 06/16/2025 8:45 AM EDT [facility] Comment:Accuracy of [...] Comment 06/16/2025 8:45 AM EDT [facility] Last Inserter ID Fariba Blanton 025 8:45 AM EDT [facility] Device ID [id number] 06/16/2025 8:45 AM EDT [facility] Specimen Type POC Arterial 06/16/2025 8:45 AM EDT [facility] Blood Arterial blood specimen / Unknown 06/16/2025 8:40 AM EDT 06/16/2025 8:45 AM EDT Phillip Clark MD LAB POINT OF CARE TE ST DOCKED DEVICE UNSOLICITED RESULTS Final Result Performing Organization Address City/State/[facility] Co de Phone Number [facility] [address] [place] [address] * (ABNORMAL) Basic metabolic panel (06/16/2025 5:58 AM EDT) Glucose, Plasma 124(H) 74 - 99 mg/dL 06/16/2025 6:35 AM EDT [facility] BUN, Plasma 16 8 - 23 mg/dL 06/16/2025 6:35 AM EDT [facility] Creatinine, Plasma 0.83 0.70 - 1.20 mg/dL 06/16/2025 6:35 AM EDT [facility] BUN/Creatinine Ratio 19 06/16/2025 6:35 AM EDT [facility] Sodium, Plasma 132(L) 136 - 145 mmol/L 06/16/2025 6:35 AM EDT [facility] Potassium, Plasma 3.8 3.6 - 4.9 mmol/L 06/16/2025 6:35 AM EDT [facility] Chloride, Plasma 100 97 - 107 mmol/L 06/16/2025 6:35 AM EDT [facility] CO2, Plasma 25 22 - 29 mmol/L 06/16/2025 6:35 AM EDT [facility] Anion Gap 7 6 - 16 mmol/L 06/16/2025 6:35 AM EDT [facility] Total Calcium, Plasma 8.4(L) 8.9 - 10.2 mg/dL 06/16/2025 6:35 AM EDT [facility] eGFRcr 94.7 mL/min/1.7 3m*2 06/16/2025 6:35 AM EDT [facility] Comment:Reported eGFRcr in m L/min/1.73m2 is based the CKD-EPI 2020 equation that does not use a race coefficient. Blood Arterial blood specimen / Unknown Venipuncture / Unknown 06/16/2025 5:58 AM EDT 06/16/2025 6:05 AM EDT us Phillip Clark MD LAB BLOOD ORDERABLES Final R esult [facility] [address] [place] [address] * XR Chest 1 View (06/16/2025 5:14 AM EDT) Anatomical Region Laterality Modality Chest Digital Radiogra phy Impressions 06/16/2025 8:15 AM EDT Interval removal of the [place] catheter, the right IJ sheath remains in [...] post median sternotomy. Interval removal of the [place] catheter, right IJ sheath remains in place with tip in the mid to distal SVC. No pneumothorax or pleural effusions. Ongoing interstitial edema. Procedure Note Mona Smith MD - 06/16/2025 CLINICAL INDICATION: Post-Op Cardiac Surgery TECHNIQUE: XR CHEST 1 VIEW COMPARISON: Chest radiograph 06/15/2025 FINDINGS: Enlarged cardiac silhouette stable status post median sternotomy. Intervalremoval of the [place]ira catheter, right IJ sheath remains in place withtip in the mid to distal SVC. No pneumothorax or pleural effusions. Ongoing interstitial edema. IMPRESSION: Interval removal of the [place] catheter, the right IJ sheath remainsin place [...] * Phosphorus (06/16/2025 12:36 AM EDT) Pathologist [facility] Phosphorus, Plasma 3.0 2.5 - 4.5 mg/dL 06/16/2025 1:12 AM EDT [facility] Blood Arterial blood specimen / Unknown Venipuncture / Unknown 06/16/2025 12:36 AM EDT 06/16/2025 12:48 AM EDT Phillip Clark MD LAB BLOOD ORDERABLES Final R esult [facility] [address] [place] [address] * (ABNORMAL) Protime-INR (06/16/2025 12:36 AM EDT) Prothrombin Time 18.0(H) 12.0 - 14.3 sec LAB COAGULATION METHOD 06/16/2025 1:06 AM EDT [facility] INR 1.5(H) 0.9 - 1.1 LAB COAGULATION METHOD 06/16/2025 1:06 AM EDT [facility] Blood Arterial blood specimen / Unknown Venipuncture / Unknown 06/16/2025 12:36 AM EDT 06/16/2025 12:48 AM EDT Narrative [facility] - 06/16/2025 1:06 AM EDT OPTIMAL INR RANGES FOR PATIENT ON ORAL ANTICOAGULANT THERAPY Prevention of venous thromboembolism INR 2.0 to 3.0 In patients with heart disease: Atrial fibrillation INR 2.0 to 3.0 Valvular heart disease INR 2.0 to 3.0 Tissue heart valves INR 2.0 to 3.0 Mechanical prosthetic valves INR 2.5 to 3.5 Prevention of recurrent AR INR 2.5 to 3.5 Phillip Clark MD LAB BLOOD ORDERABLES Final R esult Performing Organization Address [facility]/ZIP Co de Phone Number [facility] [address] [place] [address] * (ABNORMAL) Magnesium (06/16/2025 12:36 AM EDT) Pathologist [facility] Magnesium, Plasma 2.5(H) 1.9 - 2.4 mg/dL 06/16/2025 1:12 AM EDT [facility] Blood Arterial blood specimen / Unknown Venipuncture / Unknown 06/16/2025 12:36 AM EDT 06/16/2025 12:48 AM EDT Phillip Clark MD LAB BLOOD ORDERABLES Final R esult Performing Organization Address [facility]/ZIP Co de Phone Number [facility] [address] [place] [address] * (ABNORMAL) CBC (06/16/2025 12:36 AM EDT) WBC Count 13.67(H) 3.70 - 10.30 10*3/uL LAB HEMATOLOGY METHOD 06/16/2025 1:01 AM EDT [facility] RBC Count 4.36(L) 4.60 - 6.10 10*6/uL LAB HEMATOLOGY METHOD 06/16/2025 1:01 AM EDT [facility] HGB 12.3(L) 13.7 - 17.5 g/dL LAB HEMATOLOGY METHOD 06/16/2025 1:01 AM EDT [facility] HCT 37.1(L) 40.0 - 51.0 % LAB HEMATOLOGY METHOD 06/16/2025 1:01 AM EDT [facility] Platelet Count 106(L) 155 - 369 10*3/uL LAB HEMATOLOGY METHOD 06/16/2025 1:01 AM EDT [facility] MCV 85 79 - 98 fL LAB HEMATOLOGY METHOD 06/16/2025 1:01 AM EDT [facility] MCH 28.2 26.0 - 32.0 pg LAB HEMATOLOGY METHOD 06/16/2025 1:01 AM EDT [facility] MCHC 33.2 30.7 - 35.5 g/dL LAB HEMATOLOGY METHOD 06/16/2025 1:01 AM EDT [facility] RDW 15.4(H) 11.5 - 14.5 % LAB HEMATOLOGY METHOD 06/16/2025 1:01 AM EDT [facility] MPV 10.8 8.8 - 12.5 fL LAB HEMATOLOGY METHOD 06/16/2025 1:01 AM EDT [facility] nRBC 0.0 <=0.0 per 100 WBCs LAB HEMATOLOGY METHOD 06/16/2025 1:01 AM EDT [facility] Blood Arterial blood specimen / Unknown Venipuncture / Unknown 06/16/2025 12:36 AM EDT 06/16/2025 12:48 AM EDT us Phillip Clark MD LAB BLOOD ORDERABLES Final R esult [facility] [address] [place] [address] * (ABNORMAL) Blood gas, arterial (06/16/2025 12:36 AM EDT) pH, Arterial 7.43(H) 7.31 - 7.42 LAB HEMATOLOGY METHOD 06/16/2025 12:58 AM EDT [facility] pCO2, Arterial 41 32 - 45 mmHg LAB HEMATOLOGY METHOD 06/16/2025 12:58 AM EDT [facility] pO2, Arterial 65(L) >80 mmHg LAB HEMATOLOGY METHOD 06/16/2025 12:58 AM EDT [facility] SO2, Measured, Arterial 94 94 - 98 % LAB HEMATOLOGY METHOD 06/16/2025 12:58 AM EDT [facility] Base Excess, Arterial 2.5 -2.0 - 3.0 mmol/L LAB HEMATOLOGY METHOD 06/16/2025 12:58 AM EDT [facility] Bicarbonate, Calculated, Arterial 27(H) 22 - 26 mmol/L LAB HEMATOLOGY METHOD 06/16/2025 12:58 AM EDT [facility] Hematocrit, Whole Blood 37.9(L) 40.0 - 51.0 % LAB HEMATOLOGY METHOD 06/16/2025 12:58 AM EDT [facility] Sodium, Whole Blood 133(L) 136 - 145 mmol/L LAB HEMATOLOGY METHOD 06/16/2025 12:58 AM EDT [facility] Potassium, Whole Blood 3.4(L) 3.6 - 4.9 mmol/L LAB HEMATOLOGY METHOD 06/16/2025 12:58 AM EDT [facility] Chloride, Whole Blood 100 97 - 107 mmol/L LAB HEMATOLOGY METHOD 06/16/2025 12:58 AM EDT [facility] Glucose, Whole Blood 124(H) 74 - 99 mg/dL LAB HEMATOLOGY METHOD 06/16/2025 12:58 AM EDT [facility] Ionized Calcium, Whole Blood 4.3(L) 4.6 - 5.1 mg/dL LAB HEMATOLOGY METHOD 06/16/2025 12:58 AM EDT [facility] Lactate, Arterial, Whole Blood 1.0 0.5 - 1.6 mmol/L LAB HEMATOLOGY METHOD 06/16/2025 12:58 AM EDT [facility] Blood Arterial blood specimen / Unknown Arterial Puncture / Unknown 06/16/2025 12:36 AM EDT 06/16/2025 12:55 AM EDT us Phillip Clark MD LAB BLOOD ORDERABLES Final R esult [facility] [address] [place] [address] * (ABNORMAL) POCT glucose meter (06/15/2025 8:00 PM EDT) POCT Glucose 120(H) 74 - 99 mg/dL 06/15/2025 8:01 PM EDT [facility] Comment:Accuracy of a glucos e result [...] 06/15/2025 8:01 PM EDT [facility] Last Inserter ID Svetlana Reilly 8:01 PM EDT [facility] Device ID [id number] 06/15/2025 8:01 PM EDT [facility] Specimen Type POC Capillary 06/15/2025 8:01 PM EDT [facility] Blood Capillary blood specimen / Unknown 06/15/2025 8:00 PM EDT 06/15/2025 8:01 PM EDT us Phillip Clark MD LAB POINT OF CARE TE ST DOCKED DEVICE UNSOLICITED RESULTS Final Result Performing Organization Address City/[facility] Co de Phone Number [facility] [address] [place] [address] * (ABNORMAL) POCT glucose meter (06/15/2025 5:56 PM EDT) POCT Glucose 121(H) 74 - 99 mg/dL [...] Comment 06/15/2025 5:57 PM EDT [facility] Last Inserter ID Bony Thomas 025 5:57 PM EDT [facility] Device ID [id number] 06/15/2025 5:57 PM EDT [facility] Specimen Type POC Arterial 06/15/2025 5:57 PM EDT [facility] Blood Arterial blood specimen / Unknown 06/15/2025 5:56 PM EDT 06/15/2025 5:57 PM EDT us Phillip Clark MD LAB POINT OF CARE TE ST DOCKED DEVICE UNSOLICITED RESULTS Final Result Performing Organization Address City/[facility]/ZIP Co de Phone Number [facility]ALTHCARE [facility] [address] [place] [address] * Magnesium (06/15/2025 4:11 PM EDT) Pathologist [facility] Magnesium, Plasma 2.1 1.9 - 2.4 mg/dL 06/15/2025 6:21 PM EDT [facility] Blood Venous blood specimen / Unknown Venipuncture / Unknown 06/15/2025 4:11 PM EDT 06/15/2025 4:39 PM EDT Phillip Clark MD LAB BLOOD ORDERABLES Final R esult Performing Organization Address City/[facility]/ZIP Co de Phone Number [facility] [address] [place] [address] * Phosphorus (06/15/2025 4:11 PM EDT) Pathologist [facility] Phosphorus, Plasma 2.9 2.5 - 4.5 mg/dL 06/15/2025 5:12 PM EDT [facility] Blood Venous blood specimen / Unknown Venipuncture / Unknown 06/15/2025 4:11 PM EDT 06/15/2025 4:39 PM EDT Phillip Clark MD LAB BLOOD ORDERABLES Final R esult [facility] [address] [place] [address] * (ABNORMAL) Basic metabolic panel (06/15/2025 4:11 PM EDT) [facility] Glucose, Plasma 123(H) 74 - 99 mg/dL 06/15/2025 5:12 PM EDT [facility] BUN, Plasma 19 8 - 23 mg/dL 06/15/2025 5:12 PM EDT [facility] Creatinine, Plasma 0.88 0.70 - 1.20 mg/dL 06/15/2025 5:12 PM EDT [facility] BUN/Creatinine Ratio 22 06/15/2025 5:12 PM EDT [facility] Sodium, Plasma 133(L) 136 - 145 mmol/L 06/15/2025 5:12 PM EDT [facility] Potassium, Plasma 3.9 3.6 - 4.9 mmol/L 06/15/2025 5:12 PM EDT [facility] Chloride, Plasma 102 97 - 107 mmol/L 06/15/2025 5:12 PM EDT [facility] CO2, Plasma 23 22 - 29 mmol/L 06/15/2025 5:12 PM EDT [facility] Anion Gap 8 6 - 16 mmol/L 06/15/2025 5:12 PM EDT [facility] Total Calcium, Plasma 8.6(L) 8.9 - 10.2 mg/dL 06/15/2025 5:12 PM EDT [facility] eGFRcr 93.1 mL/min/1.7 3m*2 06/15/2025 5:12 PM EDT [facility] Comment:Reported eGFRcr in m L/min/1.73m2 is based the CKD-EPI 2020 equation that does not use a race coefficient. Blood Venous blood specimen / Unknown Venipuncture / Unknown 06/15/2025 4:11 PM EDT 06/15/2025 4:39 PM EDT us Phillip Clark MD LAB BLOOD ORDERABLES Final R esult [facility] [address] [place] [address] * (ABNORMAL) POCT glucose meter (06/15/2025 12:14 [...] Comment 06/15/2025 12:16 PM EDT [facility] Last Inserter ID Bony Thomas 025 12:16 PM EDT [facility] Device ID [id number] 06/15/2025 12:16 PM EDT [facility] Specimen Type POC Arterial 06/15/2025 12:16 PM EDT [facility] Blood Arterial blood specimen / Unknown 06/15/2025 12:14 PM EDT 06/15/2025 12:16 PM EDT us Phillip Clark MD LAB POINT OF CARE TE ST DOCKED DEVICE UNSOLICITED RESULTS Final Result Performing Organization Address City/State/[facility] Co de Phone Number HEALTHCARE [facility] [address] [place] [id number] * [place] [facility], E/M 30-74 MINUTES (06/15/2025 9:19 [...] Comment 06/15/2025 8:25 AM EDT [facility] Last Inserter ID Bony Thomas 025 8:25 AM EDT HEALTHCARE LAB Device ID [id number] 06/15/2025 8:25 AM EDT [facility] Specimen Type POC Arterial 06/15/2025 8:25 AM EDT [facility] Blood Arterial blood specimen / Unknown 06/15/2025 8:24 AM EDT 06/15/2025 8:25 AM EDT us Phillip Clark MD LAB POINT OF CARE TE ST DOCKED DEVICE UNSOLICITED RESULTS Final Result [facility] [address] [place] [id number] * (ABNORMAL) CBC and Differential (06/15/2025 8:18 AM EDT) WBC Count 12.56(H) 3.70 - 10.30 10*3/uL LAB HEMATOLOGY METHOD 06/15/2025 8:47 AM EDT [facility] RBC Count 4.60 4.60 - 6.10 10*6/uL LAB HEMATOLOGY METHOD 06/15/2025 8:47 AM EDT [facility] HGB 12.8(L) 13.7 - 17.5 g/dL LAB HEMATOLOGY METHOD 06/15/2025 8:47 AM EDT [facility] HCT 39.4(L) 40.0 - 51.0 % LAB HEMATOLOGY METHOD 06/15/2025 8:47 AM EDT [facility] Platelet Count 120(L) 155 - 369 10*3/uL LAB HEMATOLOGY METHOD 06/15/2025 8:47 AM EDT [facility] MCV 86 79 - 98 fL LAB HEMATOLOGY METHOD 06/15/2025 8:47 AM EDT [facility] MCH 27.8 26.0 - 32.0 pg LAB HEMATOLOGY METHOD 06/15/2025 8:47 AM EDT [facility] MCHC 32.5 30.7 - 35.5 g/dL LAB HEMATOLOGY METHOD 06/15/2025 8:47 AM EDT [facility] RDW 15.5(H) 11.5 - 14.5 % LAB HEMATOLOGY METHOD 06/15/2025 8:47 AM EDT [facility] MPV 10.6 8.8 - 12.5 fL LAB HEMATOLOGY METHOD 06/15/2025 8:47 AM EDT [facility] nRBC 0.0 <=0.0 per 100 WBCs LAB HEMATOLOGY METHOD 06/15/2025 8:47 AM EDT [facility] Differential Type Automated LAB HEMATOLOGY METHOD 06/15/2025 8:47 AM EDT [facility] Neutrophils % 84 % LAB HEMATOLOGY METHOD 06/15/2025 8:47 AM EDT [facility] Lymphocytes % 5 % LAB HEMATOLOGY METHOD 06/15/2025 8:47 AM EDT [facility] Monocytes % 10 % LAB HEMATOLOGY METHOD 06/15/2025 8:47 AM EDT [facility] Eosinophils % 0 % LAB HEMATOLOGY METHOD 06/15/2025 8:47 AM EDT [facility] Basophils % 0 % LAB HEMATOLOGY METHOD 06/15/2025 8:47 AM EDT [facility] Immature Granulocytes % 1 % LAB HEMATOLOGY METHOD 06/15/2025 8:47 AM EDT [facility] Neutrophils Absolute 10.59(H) 1.60 - 6.10 10*3/uL LAB HEMATOLOGY METHOD 06/15/2025 8:47 AM EDT [facility] Lymphocytes Absolute 0.60(L) 1.20 - 3.90 10*3/uL LAB HEMATOLOGY METHOD 06/15/2025 8:47 AM EDT [facility] Monocytes Absolute 1.29(H) 0.30 - 0.90 10*3/uL LAB HEMATOLOGY METHOD 06/15/2025 8:47 AM EDT [facility] Eosinophils Absolute 0.00 0.00 - 0.50 10*3/uL LAB HEMATOLOGY METHOD 06/15/2025 8:47 AM EDT [facility] Basophils Absolute 0.02 0.00 - 0.10 10*3/uL LAB HEMATOLOGY METHOD 06/15/2025 8:47 AM EDT [facility] Immature Granulocytes Absolute 0.06 0.00 - 0.06 10*3/uL LAB HEMATOLOGY METHOD 06/15/2025 8:47 AM EDT [facility] Blood Venous blood specimen / Unknown Venipuncture / Unknown 06/15/2025 8:18 AM EDT 06/15/2025 8:34 AM EDT Narrative [facility] - 06/15/2025 8:47 AM EDT Therapeutic decision making should be based on absolute values, rather than percentages. us Phillip Clark MD LAB BLOOD ORDERABLES Final R esult Performing Organization Address City/[facility]/ZIP Co de Phone Number [facility] [address] [place] [address] * (ABNORMAL) Protime-INR (06/15/2025 6:40 AM EDT) Prothrombin Time 16.5(H) 12.0 - 14.3 sec LAB COAGULATION METHOD 06/15/2025 7:53 AM EDT [facility] INR 1.3(H) 0.9 - 1.1 LAB COAGULATION METHOD 06/15/2025 7:53 AM EDT [facility] Blood Arterial blood specimen / Unknown Venipuncture / Unknown 06/15/2025 6:40 AM EDT 06/15/2025 6:47 AM EDT Narrative [facility] - 06/15/2025 7:53 AM EDT OPTIMAL INR RANGES FOR PATIENT ON ORAL ANTICOAGULANT THERAPY Prevention of venous thromboembolism INR 2.0 to 3.0 In patients with heart disease: Atrial fibrillation INR 2.0 to 3.0 Valvular heart disease INR 2.0 to 3.0 Tissue heart valves INR 2.0 to 3.0 Mechanical prosthetic valves INR 2.5 to 3.5 Prevention of recurrent AR INR 2.5 to 3.5 us Phillip Clark MD LAB BLOOD ORDERABLES Final R esult [facility] [address] [place] [address] * Ionized calcium, whole blood (06/15/2025 6:40 AM EDT) Ionized Calcium, Whole Blood 4.6 4.6 - 5.1 mg/dL LAB HEMATOLOGY METHOD 06/15/2025 6:50 AM EDT [facility] Blood Arterial blood specimen / Unknown Venipuncture / Unknown 06/15/2025 6:40 AM EDT 06/15/2025 6:48 AM EDT us Phillip Clark MD LAB BLOOD ORDERABLES Final R esult [facility] [address] [place] [address] * ECG Adult - POD 1 (06/15/2025 5:20 AM EDT) EKG DIAGNOSIS CLASS Abnormal MUSE ECG Ventricular Rate 71 BPM MUSE ECG Atrial Rate 71 BPM MUSE ECG [place] Interval 182 ms MUSE ECG QRSD Interval 108 ms MUSE ECG QT Interval 418 ms MUSE ECG QTC Interval 454 ms MUSE ECG P [place] 51 degrees MUSE ECG R [place] -48 degrees MUSE ECG T Wave [place] -12 degrees MUSE ECG Diagnosis Normal sinus rhythm MUSE ECG Diagnosis Left anterior fascicular block MUSE ECG Diagnosis Abnormal ECG MUSE ECG Diagnosis MUSE ECG Diagnosis Confirmed by Bimal Brambila ([id number]) on 06/15/2025 11:38:57 AM MUSE ECG 06/15/2025 5:20 AM EDT 06/15/2025 11:38 AM EDT us Phillip Clark MD ECG ORDERABLES Final Result Performing Organization Address City/[facility]/ZIP Co de Phone Number MUSE ECG * (ABNORMAL) Blood gas panel, arterial (06/15/2025 3:58 AM EDT) pH, Arterial 7.39 7.31 - 7.42 LAB HEMATOLOGY METHOD 06/15/2025 4:06 AM EDT [facility] pCO2, Arterial 39 32 - 45 mmHg LAB HEMATOLOGY METHOD 06/15/2025 4:06 AM EDT [facility] pO2, Arterial 79(L) >80 mmHg LAB HEMATOLOGY METHOD 06/15/2025 4:06 AM EDT [facility] SO2, Measured, Arterial 97 94 - 98 % LAB HEMATOLOGY METHOD 06/15/2025 4:06 AM EDT [facility] Base Excess, Arterial -1.2 -2.0 - 3.0 mmol/L LAB HEMATOLOGY METHOD 06/15/2025 4:06 AM EDT [facility] Bicarbonate, Calculated, Arterial 24 22 - 26 mmol/L LAB HEMATOLOGY METHOD 06/15/2025 4:06 AM EDT [facility] Hematocrit, Whole Blood 39.7(L) 40.0 - 51.0 % LAB HEMATOLOGY METHOD 06/15/2025 4:06 AM EDT [facility] Sodium, Whole Blood 134(L) 136 - 145 mmol/L LAB HEMATOLOGY METHOD 06/15/2025 4:06 AM EDT [facility] Potassium, Whole Blood 4.4 3.6 - 4.9 mmol/L LAB HEMATOLOGY METHOD 06/15/2025 4:06 AM EDT [facility] Chloride, Whole Blood 108(H) 97 - 107 mmol/L LAB HEMATOLOGY METHOD 06/15/2025 4:06 AM EDT [facility] Glucose, Whole Blood 132(H) 74 - 99 mg/dL LAB HEMATOLOGY METHOD 06/15/2025 4:06 AM EDT [facility] Ionized Calcium, Whole Blood 4.5(L) 4.6 - 5.1 mg/dL LAB HEMATOLOGY METHOD 06/15/2025 4:06 AM EDT [facility] Lactate, Arterial, Whole Blood 0.9 0.5 - 1.6 mmol/L LAB HEMATOLOGY METHOD 06/15/2025 4:06 AM EDT [facility] Blood Arterial blood specimen / Unknown Arterial Puncture / Unknown 06/15/2025 3:58 AM EDT 06/15/2025 4:06 AM EDT us Phillip Clark MD LAB BLOOD ORDERABLES Final R esult [facility] [address] [place] [address] * XR Chest 1 View (06/15/2025 2:53 [...] of NG tube. Right internal jugular approach [place] catheter and mediastinal drain in unchanged position. [...] IMG XR PROCEDURES Final Resu lt * [place] [facility], ADDL 30 MIN, [place] [facility], ADDL 30 MIN (06/15/2025 12:21 [...] my division, on the same day: yes Andres Narvaez MD IN CLINIC/BEDSIDE ORDERABLES Fin al Result * (ABNORMAL) WBC Differential (06/15/2025 12:20 AM EDT) Differential Type Automated LAB HEMATOLOGY METHOD 06/15/2025 8:17 AM EDT [facility] Neutrophils % 85 % LAB HEMATOLOGY METHOD 06/15/2025 8:17 AM EDT [facility] Lymphocytes % 4 % LAB HEMATOLOGY METHOD 06/15/2025 8:17 AM EDT [facility] Monocytes % 10 % LAB HEMATOLOGY METHOD 06/15/2025 8:17 AM EDT [facility] Eosinophils % 0 % LAB HEMATOLOGY METHOD 06/15/2025 8:17 AM EDT [facility] Basophils % 0 % LAB HEMATOLOGY METHOD 06/15/2025 8:17 AM EDT [facility] Immature Granulocytes % 1 % LAB HEMATOLOGY METHOD 06/15/2025 8:17 AM EDT [facility] Immature Granulocytes Absolute 0.05 0.00 - 0.06 10*3/uL LAB HEMATOLOGY METHOD 06/15/2025 8:17 AM EDT [facility] Neutrophils Absolute 9.28(H) 1.60 - 6.10 10*3/uL LAB HEMATOLOGY METHOD 06/15/2025 8:17 AM EDT [facility] Lymphocytes Absolute 0.45(L) 1.20 - 3.90 10*3/uL LAB HEMATOLOGY METHOD 06/15/2025 8:17 AM EDT [facility] Monocytes Absolute 1.14(H) 0.30 - 0.90 10*3/uL LAB HEMATOLOGY METHOD 06/15/2025 8:17 AM EDT [facility] Basophils Absolute 0.02 0.00 - 0.10 10*3/uL LAB HEMATOLOGY METHOD 06/15/2025 8:17 AM EDT [facility] Eosinophils Absolute 0.00 0.00 - 0.50 10*3/uL LAB HEMATOLOGY METHOD 06/15/2025 8:17 AM EDT [facility] Blood Venous blood specimen / Unknown Venipuncture / Unknown 06/15/2025 12:20 AM EDT 06/15/2025 12:26 AM EDT Phillip Clark MD LAB BLOOD ORDERABLES Final R esult [facility] [address] [place] [address] * Phosphorus (06/15/2025 12:20 AM EDT) Phosphorus, Plasma 2.6 2.5 - 4.5 mg/dL 06/15/2025 8:33 AM EDT [facility] Blood Venous blood specimen / Unknown Venipuncture / Unknown 06/15/2025 12:20 AM EDT 06/15/2025 12:26 AM EDT Phillip Clark MD LAB BLOOD ORDERABLES Final R esult Performing Organization Address City/[facility]/ZIP Co de Phone Number [facility] [address] [place] [address] * (ABNORMAL) Magnesium (06/15/2025 12:20 AM EDT) Magnesium, Plasma 2.5(H) 1.9 - 2.4 mg/dL 06/15/2025 7:37 AM EDT [facility] Blood Venous blood specimen / Unknown Venipuncture / Unknown 06/15/2025 12:20 AM EDT 06/15/2025 12:26 AM EDT us Phillip Clark MD LAB BLOOD ORDERABLES Final R esult Performing Organization Address City/[facility]/ZIP Co de Phone Number [facility] [address] [place] [address] * (ABNORMAL) Basic metabolic panel (06/15/2025 12:20 AM EDT) Glucose, Plasma 140(H) 74 - 99 mg/dL 06/15/2025 7:37 AM EDT [facility] BUN, Plasma 17 8 - 23 mg/dL 06/15/2025 7:37 AM EDT [facility] Creatinine, Plasma 0.84 0.70 - 1.20 mg/dL 06/15/2025 7:37 AM EDT [facility] BUN/Creatinine Ratio 20 06/15/2025 7:37 AM EDT [facility] Sodium, Plasma 138 136 - 145 mmol/L 06/15/2025 7:37 AM EDT [facility] Potassium, Plasma 4.6 3.6 - 4.9 mmol/L 06/15/2025 7:37 AM EDT [facility] Chloride, Plasma 107 97 - 107 mmol/L 06/15/2025 7:37 AM EDT [facility] CO2, Plasma 18(L) 22 - 29 mmol/L 06/15/2025 7:37 AM EDT [facility] Anion Gap 13 6 - 16 mmol/L 06/15/2025 7:37 AM EDT [facility] Total Calcium, Plasma 8.0(L) 8.9 - 10.2 mg/dL 06/15/2025 7:37 AM EDT [facility] eGFRcr 94.4 mL/min/1.7 3m*2 06/15/2025 7:37 AM EDT [facility] Comment:Reported eGFRcr in m L/min/1.73m2 is based the CKD-EPI 2020 equation that does not use a race coefficient. Blood Venous blood specimen / Unknown Venipuncture / Unknown 06/15/2025 12:20 AM EDT 06/15/2025 12:26 AM EDT us Phillip Clark MD LAB BLOOD ORDERABLES Final R esult [facility] [address] [place] [address] * (ABNORMAL) CBC W/O Differential (06/15/2025 12:20 AM EDT) WBC Count 10.94(H) 3.70 - 10.30 10*3/uL LAB HEMATOLOGY METHOD 06/15/2025 8:32 AM EDT [facility] RBC Count 4.94 4.60 - 6.10 10*6/uL LAB HEMATOLOGY METHOD 06/15/2025 8:32 AM EDT [facility] HGB 13.6(L) 13.7 - 17.5 g/dL LAB HEMATOLOGY METHOD 06/15/2025 8:32 AM EDT [facility] HCT 41.0 40.0 - 51.0 % LAB HEMATOLOGY METHOD 06/15/2025 8:32 AM EDT [facility] Platelet Count 142(L) 155 - 369 10*3/uL LAB HEMATOLOGY METHOD 06/15/2025 8:32 AM EDT [facility] MCV 87 79 - 98 fL LAB HEMATOLOGY METHOD 06/15/2025 8:32 AM EDT [facility] MCH 27.5 26.0 - 32.0 pg LAB HEMATOLOGY METHOD 06/15/2025 8:32 AM EDT [facility] MCHC 31.8 30.7 - 35.5 g/dL LAB HEMATOLOGY METHOD 06/15/2025 8:32 AM EDT [facility] RDW 15.6(H) 11.5 - 14.5 % LAB HEMATOLOGY METHOD 06/15/2025 8:32 AM EDT [facility] MPV 11.1 8.8 - 12.5 fL LAB HEMATOLOGY METHOD 06/15/2025 8:32 AM EDT [facility] nRBC 0.0 <=0.0 per 100 WBCs LAB HEMATOLOGY METHOD 06/15/2025 8:32 AM EDT [facility] Blood Venous blood specimen / Unknown Venipuncture / Unknown 06/15/2025 12:20 AM EDT 06/15/2025 12:26 AM EDT us Phillip Clark MD LAB BLOOD ORDERABLES Final R esult [facility] [address] [place] [address] * Potassium, Plasma (06/15/2025 12:20 AM EDT) Pathologist [facility] Potassium, Plasma 4.5 3.6 - 4.9 mmol/L 06/15/2025 12:51 AM EDT [facility] Blood Venous blood specimen / Unknown Venipuncture / Unknown 06/15/2025 12:20 AM EDT 06/15/2025 12:26 AM EDT Phillip Clark MD LAB BLOOD ORDERABLES Final R esult [facility] [address] [place] [address] * Hematocrit (06/15/2025 12:20 AM EDT) [facility] HCT 41.0 40.0 - 51.0 % LAB HEMATOLOGY METHOD 06/15/2025 12:36 AM EDT [facility] Blood Venous blood specimen / Unknown Venipuncture / Unknown 06/15/2025 12:20 AM EDT 06/15/2025 12:26 AM EDT Phillip Clark MD LAB BLOOD ORDERABLES Final R esult Performing Organization Address City/[facility]/ZIP Co de Phone Number [facility] [address] [place] [address] * (ABNORMAL) Hemoglobin (06/15/2025 12:20 AM EDT) [facility] HGB 13.6(L) 13.7 - 17.5 g/dL LAB HEMATOLOGY METHOD 06/15/2025 12:36 AM EDT [facility] Blood Venous blood specimen / Unknown Venipuncture / Unknown 06/15/2025 12:20 AM EDT 06/15/2025 12:26 AM EDT Phillip Clark MD LAB BLOOD ORDERABLES Final R esult [facility] [address] [place] [address] * (ABNORMAL) Blood gas, arterial (06/15/2025 12:20 AM EDT) pH, Arterial 7.37 7.31 - 7.42 LAB HEMATOLOGY METHOD 06/15/2025 12:37 AM EDT [facility] pCO2, Arterial 40 32 - 45 mmHg LAB HEMATOLOGY METHOD 06/15/2025 12:37 AM EDT [facility] pO2, Arterial 65(L) >80 mmHg LAB HEMATOLOGY METHOD 06/15/2025 12:37 AM EDT [facility] SO2, Measured, Arterial 94 94 - 98 % LAB HEMATOLOGY METHOD 06/15/2025 12:37 AM EDT [facility] Base Excess, Arterial -1.8 -2.0 - 3.0 mmol/L LAB HEMATOLOGY METHOD 06/15/2025 12:37 AM EDT [facility] Bicarbonate, Calculated, Arterial 23 22 - 26 mmol/L LAB HEMATOLOGY METHOD 06/15/2025 12:37 AM EDT [facility] Hematocrit, Whole Blood 41.1 40.0 - 51.0 % LAB HEMATOLOGY METHOD 06/15/2025 12:37 AM EDT [facility] Sodium, Whole Blood 137 136 - 145 mmol/L LAB HEMATOLOGY METHOD 06/15/2025 12:37 AM EDT [facility] Potassium, Whole Blood 4.2 3.6 - 4.9 mmol/L LAB HEMATOLOGY METHOD 06/15/2025 12:37 AM EDT [facility] Chloride, Whole Blood 110(H) 97 - 107 mmol/L LAB HEMATOLOGY METHOD 06/15/2025 12:37 AM EDT [facility] Glucose, Whole Blood 140(H) 74 - 99 mg/dL LAB HEMATOLOGY METHOD 06/15/2025 12:37 AM EDT [facility] Ionized Calcium, Whole Blood 4.5(L) 4.6 - 5.1 mg/dL LAB HEMATOLOGY METHOD 06/15/2025 12:37 AM EDT [facility] Lactate, Arterial, Whole Blood 1.8(H) 0.5 - 1.6 mmol/L LAB HEMATOLOGY METHOD 06/15/2025 12:37 AM EDT [facility] Blood Arterial blood specimen / Unknown Arterial Puncture / Unknown 06/15/2025 12:20 AM EDT 06/15/2025 12:34 AM EDT us Phillip Clark MD LAB BLOOD ORDERABLES Final R esult [facility] [address] [place] [address] * (ABNORMAL) Blood gas, arterial (06/14/2025 8:04 PM EDT) pH, Arterial 7.35 7.31 - 7.42 LAB HEMATOLOGY METHOD 06/14/2025 8:19 PM EDT [facility] pCO2, Arterial 39 32 - 45 mmHg LAB HEMATOLOGY METHOD 06/14/2025 8:19 PM EDT [facility] pO2, Arterial 88 >80 mmHg LAB HEMATOLOGY METHOD 06/14/2025 8:19 PM EDT [facility] SO2, Measured, Arterial 98 94 - 98 % LAB HEMATOLOGY METHOD 06/14/2025 8:19 PM EDT [facility] Base Excess, Arterial -3.7(L) -2.0 - 3.0 mmol/L LAB HEMATOLOGY METHOD 06/14/2025 8:19 PM EDT [facility] Bicarbonate, Calculated, Arterial 22 22 - 26 mmol/L LAB HEMATOLOGY METHOD 06/14/2025 8:19 PM EDT [facility] Hematocrit, Whole Blood 44.7 40.0 - 51.0 % LAB HEMATOLOGY METHOD 06/14/2025 8:19 PM EDT [facility] Sodium, Whole Blood 138 136 - 145 mmol/L LAB HEMATOLOGY METHOD 06/14/2025 8:19 PM EDT [facility] Potassium, Whole Blood 4.5 3.6 - 4.9 mmol/L LAB HEMATOLOGY METHOD 06/14/2025 8:19 PM EDT [facility] Chloride, Whole Blood 109(H) 97 - 107 mmol/L LAB HEMATOLOGY METHOD 06/14/2025 8:19 PM EDT [facility] Glucose, Whole Blood 185(H) 74 - 99 mg/dL LAB HEMATOLOGY METHOD 06/14/2025 8:19 PM EDT [facility] Ionized Calcium, Whole Blood 4.5(L) 4.6 - 5.1 mg/dL LAB HEMATOLOGY METHOD 06/14/2025 8:19 PM EDT [facility] Lactate, Arterial, Whole Blood 3.0(H) 0.5 - 1.6 mmol/L LAB HEMATOLOGY METHOD 06/14/2025 8:19 PM EDT [facility] Blood Arterial blood specimen / Unknown Arterial Puncture / Unknown 06/14/2025 8:04 PM EDT 06/14/2025 8:14 PM EDT Phillip Clark MD LAB BLOOD ORDERABLES Final R esult [facility] [address] [place] [address] * Potassium (06/14/2025 8:03 PM EDT) Potassium, Plasma 4.9 3.6 - 4.9 mmol/L 06/14/2025 8:33 PM EDT [facility] Blood Arterial blood specimen / Unknown Venipuncture / Unknown 06/14/2025 8:03 PM EDT 06/14/2025 8:11 PM EDT Phillip Clark MD LAB BLOOD ORDERABLES Final R esult Performing Organization Address [facility] Co de Phone Number [facility] [address] [place] [address] * (ABNORMAL) Magnesium (06/14/2025 8:03 PM EDT) Magnesium, Plasma 2.7(H) 1.9 - 2.4 mg/dL 06/14/2025 8:40 PM EDT [facility] Blood Arterial blood specimen / Unknown Venipuncture / Unknown 06/14/2025 8:03 PM EDT 06/14/2025 8:11 PM EDT us Phillip Clark MD LAB BLOOD ORDERABLES Final R esult Performing Organization Address City/[facility]/ZIP Co de Phone Number [facility] [address] [place] [address] * (ABNORMAL) CBC (06/14/2025 8:03 PM EDT) WBC Count 13.98(H) 3.70 - 10.30 10*3/uL LAB HEMATOLOGY METHOD 06/14/2025 8:20 PM EDT [facility] RBC Count 5.14 4.60 - 6.10 10*6/uL LAB HEMATOLOGY METHOD 06/14/2025 8:20 PM EDT [facility] HGB 14.5 13.7 - 17.5 g/dL LAB HEMATOLOGY METHOD 06/14/2025 8:20 PM EDT [facility] HCT 43.9 40.0 - 51.0 % LAB HEMATOLOGY METHOD 06/14/2025 8:20 PM EDT [facility] Platelet Count 158 155 - 369 10*3/uL LAB HEMATOLOGY METHOD 06/14/2025 8:20 PM EDT [facility] MCV 85 79 - 98 fL LAB HEMATOLOGY METHOD 06/14/2025 8:20 PM EDT [facility] MCH 28.2 26.0 - 32.0 pg LAB HEMATOLOGY METHOD 06/14/2025 8:20 PM EDT [facility] MCHC 33.0 30.7 - 35.5 g/dL LAB HEMATOLOGY METHOD 06/14/2025 8:20 PM EDT [facility] RDW 14.9(H) 11.5 - 14.5 % LAB HEMATOLOGY METHOD 06/14/2025 8:20 PM EDT [facility] MPV 10.8 8.8 - 12.5 fL LAB HEMATOLOGY METHOD 06/14/2025 8:20 PM EDT [facility] nRBC 0.0 <=0.0 per 100 WBCs LAB HEMATOLOGY METHOD 06/14/2025 8:20 PM EDT [facility] Blood Arterial blood specimen / Unknown Venipuncture / Unknown 06/14/2025 8:03 PM EDT 06/14/2025 8:11 PM EDT us Phillip Clark MD LAB BLOOD ORDERABLES Final R esult [facility] [address] [place] [address] * (ABNORMAL) Basic metabolic panel (06/14/2025 8:03 PM EDT) Glucose, Plasma 194(H) 74 - 99 mg/dL 06/14/2025 8:40 PM EDT [facility] BUN, Plasma 16 8 - 23 mg/dL 06/14/2025 8:40 PM EDT [facility] Creatinine, Plasma 0.85 0.70 - 1.20 mg/dL 06/14/2025 8:40 PM EDT [facility] BUN/Creatinine Ratio 19 06/14/2025 8:40 PM EDT [facility] Sodium, Plasma 139 136 - 145 mmol/L 06/14/2025 8:40 PM EDT [facility] Potassium, Plasma 5.0(H) 3.6 - 4.9 mmol/L 06/14/2025 8:40 PM EDT [facility] Chloride, Plasma 109(H) 97 - 107 mmol/L 06/14/2025 8:40 PM EDT [facility] CO2, Plasma 20(L) 22 - 29 mmol/L 06/14/2025 8:40 PM EDT [facility] Anion Gap 10 6 - 16 mmol/L 06/14/2025 8:40 PM EDT [facility] Total Calcium, Plasma 8.2(L) 8.9 - 10.2 mg/dL 06/14/2025 8:40 PM EDT [facility] eGFRcr 94.1 mL/min/1.7 3m*2 06/14/2025 8:40 PM EDT [facility] Comment:Reported eGFRcr in m L/min/1.73m2 is based the CKD-EPI 2020 equation that does not use a race coefficient. Blood Arterial blood specimen / Unknown Venipuncture / Unknown 06/14/2025 8:03 PM EDT 06/14/2025 8:11 PM EDT us Phillip Clark MD LAB BLOOD ORDERABLES Final R esult [facility] [address] [place] [address] * (ABNORMAL) Blood gas panel, arterial (06/14/2025 6:47 PM EDT) [facility] pH, Arterial 7.30(L) 7.31 - 7.42 LAB HEMATOLOGY METHOD 06/14/2025 6:57 PM EDT [facility] pCO2, Arterial 41 32 - 45 mmHg LAB HEMATOLOGY METHOD 06/14/2025 6:57 PM EDT [facility] pO2, Arterial 70(L) >80 mmHg LAB HEMATOLOGY METHOD 06/14/2025 6:57 PM EDT [facility] SO2, Measured, Arterial 94 94 - 98 % LAB HEMATOLOGY METHOD 06/14/2025 6:57 PM EDT [facility] Base Excess, Arterial -5.6(L) -2.0 - 3.0 mmol/L LAB HEMATOLOGY METHOD 06/14/2025 6:57 PM EDT [facility] Bicarbonate, Calculated, Arterial 21(L) 22 - 26 mmol/L LAB HEMATOLOGY METHOD 06/14/2025 6:57 PM EDT [facility] Hematocrit, Whole Blood 45.5 40.0 - 51.0 % LAB HEMATOLOGY METHOD 06/14/2025 6:57 PM EDT [facility] Sodium, Whole Blood 138 136 - 145 mmol/L LAB HEMATOLOGY METHOD 06/14/2025 6:57 PM EDT [facility] Potassium, Whole Blood 4.4 3.6 - 4.9 mmol/L LAB HEMATOLOGY METHOD 06/14/2025 6:57 PM EDT [facility] Chloride, Whole Blood 109(H) 97 - 107 mmol/L LAB HEMATOLOGY METHOD 06/14/2025 6:57 PM EDT [facility] Glucose, Whole Blood 209(H) 74 - 99 mg/dL LAB HEMATOLOGY METHOD 06/14/2025 6:57 PM EDT [facility] Ionized Calcium, Whole Blood 4.6 4.6 - 5.1 mg/dL LAB HEMATOLOGY METHOD 06/14/2025 6:57 PM EDT [facility] Lactate, Arterial, Whole Blood 3.9(H) 0.5 - 1.6 mmol/L LAB HEMATOLOGY METHOD 06/14/2025 6:57 PM EDT [facility] Blood Arterial blood specimen / Unknown Arterial Puncture / Unknown 06/14/2025 6:47 PM EDT 06/14/2025 6:56 PM EDT us Phillip Clark MD LAB BLOOD ORDERABLES Final R esult [facility] [address] [place] [address] * [place] [facility], E/M 30-74 MINUTES (06/14/2025 5:35 [...] LAB HEMATOLOGY METHOD 06/14/2025 4:12 PM EDT [facility] pCO2, Arterial 43 32 - 45 mmHg LAB HEMATOLOGY METHOD 06/14/2025 4:12 PM EDT [facility] pO2, Arterial 126 >80 mmHg LAB HEMATOLOGY METHOD 06/14/2025 4:12 PM EDT [facility] SO2, Measured, Arterial 99(H) 94 - 98 % LAB HEMATOLOGY METHOD 06/14/2025 4:12 PM EDT [facility] Base Excess, Arterial -5.8(L) -2.0 - 3.0 mmol/L LAB HEMATOLOGY METHOD 06/14/2025 4:12 PM EDT [facility] Bicarbonate, Calculated, Arterial 21(L) 22 - 26 mmol/L LAB HEMATOLOGY METHOD 06/14/2025 4:12 PM EDT [facility] Hematocrit, Whole Blood 43.9 40.0 - 51.0 % LAB HEMATOLOGY METHOD 06/14/2025 4:12 PM EDT [facility] Sodium, Whole Blood 139 136 - 145 mmol/L LAB HEMATOLOGY METHOD 06/14/2025 4:12 PM EDT [facility] Potassium, Whole Blood 3.8 3.6 - 4.9 mmol/L LAB HEMATOLOGY METHOD 06/14/2025 4:12 PM EDT [facility] Chloride, Whole Blood 109(H) 97 - 107 mmol/L LAB HEMATOLOGY METHOD 06/14/2025 4:12 PM EDT [facility] Glucose, Whole Blood 179(H) 74 - 99 mg/dL LAB HEMATOLOGY METHOD 06/14/2025 4:12 PM EDT [facility] Ionized Calcium, Whole Blood 4.6 4.6 - 5.1 mg/dL LAB HEMATOLOGY METHOD 06/14/2025 4:12 PM EDT [facility] Lactate, Arterial, Whole Blood 4.3(H) 0.5 - 1.6 mmol/L LAB HEMATOLOGY METHOD 06/14/2025 4:12 PM EDT [facility] Blood Arterial blood specimen / Unknown Arterial Puncture / Unknown 06/14/2025 3:57 PM EDT 06/14/2025 4:11 PM EDT us Phillip Clark MD LAB BLOOD ORDERABLES Final R esult [facility] [address] [place] [address] * (ABNORMAL) Blood gas panel with oximetry, mixed venous (06/14/2025 3:00 PM EDT) pH, Mixed Venous 7.28(L) 7.32 - 7.43 LAB HEMATOLOGY METHOD 06/14/2025 3:24 PM EDT [facility] pCO2, Mixed Venous 47 40 - 55 mmHg LAB HEMATOLOGY METHOD 06/14/2025 3:24 PM EDT [facility] pO2, Mixed Venous 54(H) 25 - 40 mmHg LAB HEMATOLOGY METHOD 06/14/2025 3:24 PM EDT [facility] SO2, Measured, Mixed Venous 84(H) 65 - 80 % LAB HEMATOLOGY METHOD 06/14/2025 3:24 PM EDT [facility] Bicarbonate, Calculated, Mixed Venous 22 22 - 26 mmol/L LAB HEMATOLOGY METHOD 06/14/2025 3:24 PM EDT [facility] Base Excess, Mixed Venous -4.7(L) -2.0 - 3.0 mmol/L LAB HEMATOLOGY METHOD 06/14/2025 3:24 PM EDT [facility] Hematocrit, Whole Blood 43.0 40.0 - 51.0 % LAB HEMATOLOGY METHOD 06/14/2025 3:24 PM EDT [facility] Sodium, Whole Blood 139 136 - 145 mmol/L LAB HEMATOLOGY METHOD 06/14/2025 3:24 PM EDT [facility] Potassium, Whole Blood 3.7 3.6 - 4.9 mmol/L LAB HEMATOLOGY METHOD 06/14/2025 3:24 PM EDT [facility] Chloride, Whole Blood 110(H) 97 - 107 mmol/L LAB HEMATOLOGY METHOD 06/14/2025 3:24 PM EDT [facility] Ionized Calcium, Whole Blood 4.6 4.6 - 5.1 mg/dL LAB HEMATOLOGY METHOD 06/14/2025 3:24 PM EDT [facility] Glucose, Whole Blood 149(H) 74 - 99 mg/dL LAB HEMATOLOGY METHOD 06/14/2025 3:24 PM EDT [facility] Oxyhemoglobin, Mixed Venous, Whole Blood 81.9(H) 40.0 - 70.0 % LAB HEMATOLOGY METHOD 06/14/2025 3:24 PM EDT [facility] Hemoglobin Reduced, Mixed Venous, Whole Blood 16.1 % LAB HEMATOLOGY METHOD 06/14/2025 3:24 PM EDT [facility] Total Hemoglobin, Mixed Venous, Whole Blood 14.0 13.7 - 17.5 g/dL LAB HEMATOLOGY METHOD 06/14/2025 3:24 PM EDT [facility] Blood Mixed venous blood specimen / Unknown Venipuncture / Unknown 06/14/2025 3:00 PM EDT 06/14/2025 3:23 PM EDT us Phillip Clark MD LAB BLOOD ORDERABLES Final R esult [facility] [address] [place] [address] * XR Abdomen 1 View (06/14/2025 2:57 [...] Detected Not Detected 06/15/2025 12:46 PM EDT [facility] Swab (Axilla and Groin) Non-blood Collection / Unknown 06/14/2025 2:37 PM EDT 06/14/2025 3:10 PM EDT Narrative [facility] - 06/15/2025 12:46 PM EDT This PCR assay was developed and its performance characteristics determined by [facility] as appropriate for clinical purposes. This assay has not been cleared or approved by the FDA, but is performed in a CLIA regulated laboratory that is qualified to perform high-complexity testing. us Phillip Clark MD LAB MICROBIOLOGY - GENERAL O RDERABLES Final Result [facility] [address] [place] [address] * Multi Drug Resistance Test (06/14/2025 2:37 PM EDT) Culture No growth at day 1 06/15/2025 4:03 PM EDT [facility] Swab (Nares and Smita Rectal) Non-blood Collection / Unknown 06/14/2025 2:37 PM EDT 06/14/2025 3:10 PM EDT Narrative [facility] - 06/15/2025 4:03 PM EDT This test was developed and its performance characteristics determined by the [facility]. Although the media is FDA-approved, it is not FDA-approved for all specimen types submitted. The FDA has determined that such clearance or approval is not necessary. This test is used for surveillance purposes. It should not be regarded as investigational or for research. The [facility] is certified under the Clinical Laboratory Improvement Amendments of 1988 (CLIA-88) as qualified to perform high complexity clinical laboratory testing. us Phillip Clark MD LAB MICROBIOLOGY - GENERAL O RDERABLES Final Result [facility] [address] [place] [address] * (ABNORMAL) Blood gas, arterial (06/14/2025 2:37 PM EDT) pH, Arterial 7.31 7.31 - 7.42 LAB HEMATOLOGY METHOD 06/14/2025 2:58 PM EDT [facility] pCO2, Arterial 42 32 - 45 mmHg LAB HEMATOLOGY METHOD 06/14/2025 2:58 PM EDT [facility] pO2, Arterial 154 >80 mmHg LAB HEMATOLOGY METHOD 06/14/2025 2:58 PM EDT [facility] SO2, Measured, Arterial 100(H) 94 - 98 % LAB HEMATOLOGY METHOD 06/14/2025 2:58 PM EDT [facility] Base Excess, Arterial -5.1(L) -2.0 - 3.0 mmol/L LAB HEMATOLOGY METHOD 06/14/2025 2:58 PM EDT [facility] Bicarbonate, Calculated, Arterial 21(L) 22 - 26 mmol/L LAB HEMATOLOGY METHOD 06/14/2025 2:58 PM EDT [facility] Hematocrit, Whole Blood 43.5 40.0 - 51.0 % LAB HEMATOLOGY METHOD 06/14/2025 2:58 PM EDT [facility] Sodium, Whole Blood 139 136 - 145 mmol/L LAB HEMATOLOGY METHOD 06/14/2025 2:58 PM EDT [facility] Potassium, Whole Blood 3.6 3.6 - 4.9 mmol/L LAB HEMATOLOGY METHOD 06/14/2025 2:58 PM EDT [facility] Chloride, Whole Blood 110(H) 97 - 107 mmol/L LAB HEMATOLOGY METHOD 06/14/2025 2:58 PM EDT [facility] Glucose, Whole Blood 131(H) 74 - 99 mg/dL LAB HEMATOLOGY METHOD 06/14/2025 2:58 PM EDT [facility] Ionized Calcium, Whole Blood 4.7 4.6 - 5.1 mg/dL LAB HEMATOLOGY METHOD 06/14/2025 2:58 PM EDT [facility] Lactate, Arterial, Whole Blood 5.0(H) 0.5 - 1.6 mmol/L LAB HEMATOLOGY METHOD 06/14/2025 2:58 PM EDT [facility] Blood Arterial blood specimen / Unknown Arterial Puncture / Unknown 06/14/2025 2:37 PM EDT 06/14/2025 2:57 PM EDT us Phillip Clark MD LAB BLOOD ORDERABLES Final R esult [facility] [address] [place] [address] * ECG Adult - Upon Admissoin to CVICU (06/14/2025 2:36 PM EDT) EKG DIAGNOSIS CLASS Abnormal MUSE ECG Ventricular Rate 61 BPM MUSE ECG Atrial Rate 61 BPM MUSE ECG [place] Interval 176 ms MUSE ECG QRSD Interval 154 ms MUSE ECG QT Interval 520 ms MUSE ECG QTC Interval 523 ms MUSE ECG P [place] 58 degrees MUSE ECG R [place] 113 degrees MUSE ECG T Wave [place] -67 degrees MUSE ECG Diagnosis Sinus rhythm with occasional ventricular-paced complexes MUSE ECG Diagnosis Suspect unspecified pacemaker failure MUSE ECG Diagnosis Nonspecific intraventricular block MUSE ECG Diagnosis Minimal voltage criteria for LVH, may be normal variant ( Elkin product ) MUSE ECG Diagnosis Abnormal ECG MUSE ECG Diagnosis MUSE ECG Diagnosis Confirmed by Brenton Mejia ([id number]) on 06/14/2025 3:39:18 PM MUSE ECG 06/14/2025 2:36 PM EDT 06/14/2025 3:39 PM EDT us Phillip Clark MD ECG ORDERABLES Final Result MUSE ECG * Potassium, Plasma (06/14/2025 2:36 PM EDT) Potassium, Plasma 3.8 3.6 - 4.9 mmol/L 06/14/2025 4:13 PM EDT [facility] Comment:Hemolyzed, result ma y be falsely increased. Blood Venous blood specimen / Unknown Venipuncture / Unknown 06/14/2025 2:36 PM EDT 06/14/2025 3:20 PM EDT us Phillip Clark MD LAB BLOOD ORDERABLES Final R esult Performing Organization Address City/[facility]/ZIP Co de Phone Number [facility] [address] [place] [address] * Hematocrit (06/14/2025 2:36 PM EDT) Pathologist [facility] HCT 42.6 40.0 - 51.0 % LAB HEMATOLOGY METHOD 06/14/2025 4:38 PM EDT [facility] Blood Venous blood specimen / Unknown Venipuncture / Unknown 06/14/2025 2:36 PM EDT 06/14/2025 4:17 PM EDT us Phillip Clark MD LAB BLOOD ORDERABLES Final R esult Performing Organization Address [facility] Co de Phone Number [facility] [address] [place] [address] * Hemoglobin (06/14/2025 2:36 PM EDT) Pathologist [facility] HGB 13.9 13.7 - 17.5 g/dL LAB HEMATOLOGY METHOD 06/14/2025 4:38 PM EDT [facility] Blood Venous blood specimen / Unknown Venipuncture / Unknown 06/14/2025 2:36 PM EDT 06/14/2025 4:17 PM EDT Phillip Clark MD LAB BLOOD ORDERABLES Final R esult Performing Organization Address City/[facility] Co de Phone Number [facility] [address] [place] [address] * APTT (06/14/2025 2:36 PM EDT) aPTT 29 25 - 35 sec LAB COAGULATION METHOD 06/14/2025 4:11 PM EDT [facility] Blood Venous blood specimen / Unknown Venipuncture / Unknown 06/14/2025 2:36 PM EDT 06/14/2025 3:18 PM EDT Phillip Clark MD LAB BLOOD ORDERABLES Final R esult Performing Organization Address City/[facility]/ZIP Co de Phone Number [facility] [address] [place] [address] * (ABNORMAL) Protime-INR (06/14/2025 2:36 PM EDT) Prothrombin Time 16.6(H) 12.0 - 14.3 sec LAB COAGULATION METHOD 06/14/2025 4:11 PM EDT [facility] INR 1.3(H) 0.9 - 1.1 LAB COAGULATION METHOD 06/14/2025 4:11 PM EDT [facility] Blood Venous blood specimen / Unknown Venipuncture / Unknown 06/14/2025 2:36 PM EDT 06/14/2025 3:18 PM EDT Narrative [facility] - 06/14/2025 4:11 PM EDT OPTIMAL INR RANGES FOR PATIENT ON ORAL ANTICOAGULANT THERAPY Prevention of venous thromboembolism INR 2.0 to 3.0 In patients with heart disease: Atrial fibrillation INR 2.0 to 3.0 Valvular heart disease INR 2.0 to 3.0 Tissue heart valves INR 2.0 to 3.0 Mechanical prosthetic valves INR 2.5 to 3.5 Prevention of recurrent AR INR 2.5 to 3.5 us Phillip Clark MD LAB BLOOD ORDERABLES Final R esult [facility] [address] [place] [address] * (ABNORMAL) Phosphorus (06/14/2025 2:36 PM EDT) Phosphorus, Plasma 2.3(L) 2.5 - 4.5 mg/dL 06/14/2025 4:13 PM EDT [facility] Blood Venous blood specimen / Unknown Venipuncture / Unknown 06/14/2025 2:36 PM EDT 06/14/2025 3:20 PM EDT Phillip Clark MD LAB BLOOD ORDERABLES Final R esult Performing Organization Address [facility] Co de Phone Number [facility] [address] [place] [address] * (ABNORMAL) Magnesium (06/14/2025 2:36 PM EDT) Magnesium, Plasma 3.2(H) 1.9 - 2.4 mg/dL 06/14/2025 6:55 PM EDT [facility] Blood Venous blood specimen / Unknown Venipuncture / Unknown 06/14/2025 2:36 PM EDT 06/14/2025 3:20 PM EDT Phillip Clark MD LAB BLOOD ORDERABLES Final R [facility] Performing Organization Address [facility] de Phone Number [facility] [address] [place] [address] * (ABNORMAL) Basic metabolic panel (06/14/2025 2:36 PM EDT) Glucose, Plasma 134(H) 74 - 99 mg/dL 06/14/2025 4:13 PM EDT [facility] BUN, Plasma 14 8 - 23 mg/dL 06/14/2025 4:13 PM EDT [facility] Creatinine, Plasma 0.83 0.70 - 1.20 mg/dL 06/14/2025 4:13 PM EDT [facility] BUN/Creatinine Ratio 17 06/14/2025 4:13 PM EDT [facility] Sodium, Plasma 140 136 - 145 mmol/L 06/14/2025 4:13 PM EDT [facility] Potassium, Plasma 3.8 3.6 - 4.9 mmol/L 06/14/2025 4:13 PM EDT [facility] Comment:Hemolyzed, result ma y be falsely increased. Chloride, Plasma 108(H) 97 - 107 mmol/L 06/14/2025 4:13 PM EDT [facility] CO2, Plasma 19(L) 22 - 29 mmol/L 06/14/2025 4:13 PM EDT [facility] Anion Gap 13 6 - 16 mmol/L 06/14/2025 4:13 PM EDT [facility] Total Calcium, Plasma 8.3(L) 8.9 - 10.2 mg/dL 06/14/2025 4:13 PM EDT [facility] eGFRcr 94.7 mL/min/1.7 3m*2 06/14/2025 4:13 PM EDT [facility] Comment:Reported eGFRcr in m L/min/1.73m2 is based the CKD-EPI 2020 equation that does not use a race coefficient. Blood Venous blood specimen / Unknown Venipuncture / Unknown 06/14/2025 2:36 PM EDT 06/14/2025 3:20 PM EDT us Phillip Clark MD LAB BLOOD ORDERABLES Final R esult [facility] [address] [place] [address] * (ABNORMAL) CBC (06/14/2025 2:36 PM EDT) WBC Count 15.83(H) 3.70 - 10.30 10*3/uL LAB HEMATOLOGY METHOD 06/14/2025 4:38 PM EDT [facility] RBC Count 4.98 4.60 - 6.10 10*6/uL LAB HEMATOLOGY METHOD 06/14/2025 4:38 PM EDT [facility] HGB 13.9 13.7 - 17.5 g/dL LAB HEMATOLOGY METHOD 06/14/2025 4:38 PM EDT [facility] HCT 42.6 40.0 - 51.0 % LAB HEMATOLOGY METHOD 06/14/2025 4:38 PM EDT [facility] Platelet Count 160 155 - 369 10*3/uL LAB HEMATOLOGY METHOD 06/14/2025 4:38 PM EDT [facility] MCV 86 79 - 98 fL LAB HEMATOLOGY METHOD 06/14/2025 4:38 PM EDT [facility] MCH 27.9 26.0 - 32.0 pg LAB HEMATOLOGY METHOD 06/14/2025 4:38 PM EDT [facility] MCHC 32.6 30.7 - 35.5 g/dL LAB HEMATOLOGY METHOD 06/14/2025 4:38 PM EDT [facility] RDW 15.2(H) 11.5 - 14.5 % LAB HEMATOLOGY METHOD 06/14/2025 4:38 PM EDT [facility] MPV 10.3 8.8 - 12.5 fL LAB HEMATOLOGY METHOD 06/14/2025 4:38 PM EDT [facility] nRBC 0.0 <=0.0 per 100 WBCs LAB HEMATOLOGY METHOD 06/14/2025 4:38 PM EDT [facility] Blood Venous blood specimen / Unknown Venipuncture / Unknown 06/14/2025 2:36 PM EDT 06/14/2025 4:17 PM EDT us Phillip Clark MD LAB BLOOD ORDERABLES Final R esult [facility] [address] [place] [address] * (ABNORMAL) POCT arterial blood gas gem (06/14/2025 2:00 PM EDT) pH, Arterial 7.35 7.31 - 7.42 06/14/2025 2:02 PM EDT [facility] pCO2, Arterial 38 32 - 45 mm Hg 06/14/2025 2:02 PM EDT [facility] pO2, Arterial 376 >80 mm Hg 06/14/2025 2:02 PM EDT [facility] SO2, Arterial 100(H) 94 - 98 % 06/14/2025 2:02 PM EDT [facility] Base Excess, Arterial -4.2(L) -2 - 3 mmol/L 06/14/2025 2:02 PM EDT [facility] HCO3, Arterial 21.0(L) 22 - 26 mmol/L 06/14/2025 2:02 PM EDT [facility] Total Hemoglobin, Arterial, Whole Blood 14.5 13.7 - 17.5 g/dL 06/14/2025 2:02 PM EDT [facility] Hematocrit, Arterial 44.0 40 - 51.0 % 06/14/2025 2:02 PM EDT [facility] Sodium, Arterial 136 136 - 145 mmol/L 06/14/2025 2:02 PM EDT [facility] Potassium, Arterial 3.4(L) 3.6 - 4.9 mmol/L 06/14/2025 2:02 PM EDT [facility] Chloride, Whole Blood 105 97 - 107 mmol/L 06/14/2025 2:02 PM EDT [facility] Glucose, Arterial 138(H) 74 - 99 mg/dL 06/14/2025 2:02 PM EDT [facility] Ionized Calcium, Arterial 4.9 4.6 - 5.1 mg/dL 06/14/2025 2:02 PM EDT [facility] Lactate, Arterial 4.2(H) 0.5 - 1.6 mmol/L 06/14/2025 2:02 PM EDT [facility] Body Temperature 37.0 Celsius 06/14/2025 2:02 PM EDT [facility] pH, Temp Corrected, Arterial 7.35 7.31 - 7.42 06/14/2025 2:02 PM EDT [facility] pCO2, Temp Corrected, Arterial 38 32 - 45 mm Hg 06/14/2025 2:02 PM EDT [facility] pO2, Temp Corrected, Arterial 376 >80 mm Hg 06/14/2025 2:02 PM EDT [facility] Last Inserter ID Ricki Zamarripa 06/14/2025 2:02 PM EDT [facility] Blood Whole blood specimen / Unknown 06/14/2025 2:00 PM EDT 06/14/2025 2:02 PM EDT us Phillip Clark MD LAB POINT OF CARE TE ST DOCKED DEVICE UNSOLICITED RESULTS Final Result [facility] [address] [place] [address] * (ABNORMAL) POCT arterial blood gas gem (06/14/2025 1:22 PM EDT) pH, Arterial 7.34 7.31 - 7.42 06/14/2025 1:23 PM EDT [facility] pCO2, Arterial 41 32 - 45 mm Hg 06/14/2025 1:23 PM T [facility] pO2, Arterial 518 >80 mm Hg 06/14/2025 1:23 PM T [facility] SO2, Arterial 100(H) 94 - 98 % 06/14/2025 1:23 PM EDT [facility] Base Excess, Arterial -3.5(L) -2 - 3 mmol/L 06/14/2025 1:23 PM T [facility] HCO3, Arterial 22.1 22 - 26 mmol/L 06/14/2025 1:23 PM T [facility] Total Hemoglobin, Arterial, Whole Blood 13.2(L) 13.7 - 17.5 g/dL 06/14/2025 1:23 PM T [facility] Hematocrit, Arterial 40.0 40 - 51.0 % 06/14/2025 1:23 PM T [facility] Sodium, Arterial 139 136 - 145 mmol/L 06/14/2025 1:23 PM T [facility] Potassium, Arterial 3.3(L) 3.6 - 4.9 mmol/L 06/14/2025 1:23 PM T [facility] Chloride, Whole Blood 104 97 - 107 mmol/L 06/14/2025 1:23 PM T [facility] Glucose, Arterial 137(H) 74 - 99 mg/dL 06/14/2025 1:23 PM T [facility] Ionized Calcium, Arterial 4.2(L) 4.6 - 5.1 mg/dL 06/14/2025 1:23 PM T [facility] Lactate, Arterial 3.0(H) 0.5 - 1.6 mmol/L 06/14/2025 1:23 PM T [facility] Body Temperature 37.0 Celsius 06/14/2025 1:23 PM T [facility] pH, Temp Corrected, Arterial 7.34 7.31 - 7.42 06/14/2025 1:23 PM EDT [facility] pCO2, Temp Corrected, Arterial 41 32 - 45 mm Hg 06/14/2025 1:23 PM EDT [facility] pO2, Temp Corrected, Arterial 518 >80 mm Hg 06/14/2025 1:23 PM EDT [facility] Last Inserter ID ZamarripaSonin 06/14/2025 1:23 PM EDT [facility] Blood Whole blood specimen / Unknown 06/14/2025 1:22 PM EDT 06/14/2025 1:23 PM EDT us Phillip Clark MD LAB POINT OF CARE TE ST DOCKED DEVICE UNSOLICITED RESULTS Final Result Performing Organization Address City/State/[facility] Co de Phone Number [facility] [address] [place] [address] * (ABNORMAL) POCT arterial blood gas gem (06/14/2025 12:52 PM EDT) pH, Arterial 7.40 7.31 - 7.42 06/14/2025 12:54 PM EDT [facility] pCO2, Arterial 35 32 - 45 mm Hg 06/14/2025 12:54 PM EDT [facility] pO2, Arterial 399 >80 mm Hg 06/14/2025 12:54 PM EDT [facility] SO2, Arterial 100(H) 94 - 98 % 06/14/2025 12:54 PM EDT [facility] Base Excess, Arterial -2.6(L) -2 - 3 mmol/L 06/14/2025 12:54 PM EDT [facility] HCO3, Arterial 21.7(L) 22 - 26 mmol/L 06/14/2025 12:54 PM EDT [facility] Total Hemoglobin, Arterial, Whole Blood 11.7(L) 13.7 - 17.5 g/dL 06/14/2025 12:54 PM EDT [facility] Hematocrit, Arterial 35.0(L) 40 - 51.0 % 06/14/2025 12:54 PM EDT [facility] Sodium, Arterial 134(L) 136 - 145 mmol/L 06/14/2025 12:54 PM EDT [facility] Potassium, Arterial 4.2 3.6 - 4.9 mmol/L 06/14/2025 12:54 PM EDT [facility] Chloride, Whole Blood 107 97 - 107 mmol/L 06/14/2025 12:54 PM EDT [facility] Glucose, Arterial 148(H) 74 - 99 mg/dL 06/14/2025 12:54 PM EDT [facility] Ionized Calcium, Arterial 4.1(L) 4.6 - 5.1 mg/dL 06/14/2025 12:54 PM EDT [facility] Lactate, Arterial 2.2(H) 0.5 - 1.6 mmol/L 06/14/2025 12:54 PM EDT [facility] Body Temperature 37.0 Celsius 06/14/2025 12:54 PM EDT [facility] pH, Temp Corrected, Arterial 7.40 7.31 - 7.42 06/14/2025 12:54 PM EDT [facility] pCO2, Temp Corrected, Arterial 35 32 - 45 mm Hg 06/14/2025 12:54 PM EDT [facility] pO2, Temp Corrected, Arterial 399 >80 mm Hg 06/14/2025 12:54 PM EDT [facility] Last Inserter ID Jean Claude Staley 06/14/2025 12:54 PM EDT [facility] Blood Whole blood specimen / Unknown 06/14/2025 12:52 PM EDT 06/14/2025 12:54 PM EDT Phillip Clark MD LAB POINT OF CARE TE ST DOCKED DEVICE UNSOLICITED RESULTS Final Result [facility] [address] [place] [address] * POCT ACT (06/14/2025 12:43 PM EDT) ACT+ (HIGH RANGE) 98 68 - 600 Seconds 06/14/2025 12:49 PM EDT [facility] Last Inserter ID Vick Dupont 06/14/2025 12:49 PM EDT [facility] ACT Device ID [id number] 06/14/2025 12:49 PM EDT [facility] Comment 06/14/2025 12:49 PM EDT [facility] Comment: ACT performed by staff [...] ST DOCKED DEVICE UNSOLICITED RESULTS Final Result [facility] [address] [facility] [address] [place] [address] * (ABNORMAL) POCT arterial blood gas gem (06/14/2025 12:16 PM EDT) pH, Arterial 7.42 7.31 - 7.42 06/14/2025 12:19 PM EDT [facility] pCO2, Arterial 36 32 - 45 mm Hg 06/14/2025 12:19 PM EDT [facility] pO2, Arterial 358 >80 mm Hg 06/14/2025 12:19 PM EDT [facility] SO2, Arterial 99(H) 94 - 98 % 06/14/2025 12:19 PM EDT [facility] Base Excess, Arterial -0.8 -2 - 3 mmol/L 06/14/2025 12:19 PM EDT [facility] HCO3, Arterial 23.4 22 - 26 mmol/L 06/14/2025 12:19 PM EDT [facility] Total Hemoglobin, Arterial, Whole Blood 11.3(L) 13.7 - 17.5 g/dL 06/14/2025 12:19 PM EDT [facility] Hematocrit, Arterial 34.0(L) 40 - 51.0 % 06/14/2025 12:19 PM EDT [facility] Sodium, Arterial 134(L) 136 - 145 mmol/L 06/14/2025 12:19 PM EDT [facility] Potassium, Arterial 5.7(H) 3.6 - 4.9 mmol/L 06/14/2025 12:19 PM EDT [facility] Chloride, Whole Blood 105 97 - 107 mmol/L 06/14/2025 12:19 PM EDT [facility] Glucose, Arterial 119(H) 74 - 99 mg/dL 06/14/2025 12:19 PM EDT [facility] Ionized Calcium, Arterial 4.0(L) 4.6 - 5.1 mg/dL 06/14/2025 12:19 PM EDT [facility] Lactate, Arterial 1.6 0.5 - 1.6 mmol/L 06/14/2025 12:19 PM EDT [facility] Body Temperature 37.0 Celsius 06/14/2025 12:19 PM EDT [facility] pH, Temp Corrected, Arterial 7.42 7.31 - 7.42 06/14/2025 12:19 PM EDT [facility] pCO2, Temp Corrected, Arterial 36 32 - 45 mm Hg 06/14/2025 12:19 PM EDT [facility] pO2, Temp Corrected, Arterial 358 >80 mm Hg 06/14/2025 12:19 PM EDT [facility] Last Inserter ID Vick Dupont 06/14/2025 12:19 PM EDT [facility] Blood Whole blood specimen / Unknown 06/14/2025 12:16 PM EDT 06/14/2025 12:19 PM EDT us Phillip Clark MD LAB POINT OF CARE TE ST DOCKED DEVICE UNSOLICITED RESULTS Final Result Performing Organization Address City/State/[facility] Co de Phone Number [facility] [address] [place] [address] * (ABNORMAL) POCT arterial blood gas gem (06/14/2025 12:06 PM EDT) pH, Arterial 7.39 7.31 - 7.42 06/14/2025 12:09 PM EDT [facility] pCO2, Arterial 40 32 - 45 mm Hg 06/14/2025 12:09 PM EDT [facility] pO2, Arterial 378 >80 mm Hg 06/14/2025 12:09 PM EDT [facility] SO2, Arterial 100(H) 94 - 98 % 06/14/2025 12:09 PM EDT [facility] Base Excess, Arterial -0.7 -2 - 3 mmol/L 06/14/2025 12:09 PM EDT [facility] HCO3, Arterial 24.2 22 - 26 mmol/L 06/14/2025 12:09 PM EDT [facility] Total Hemoglobin, Arterial, Whole Blood 11.5(L) 13.7 - 17.5 g/dL 06/14/2025 12:09 PM EDT [facility] Hematocrit, Arterial 35.0(L) 40 - 51.0 % 06/14/2025 12:09 PM EDT [facility] Sodium, Arterial 134(L) 136 - 145 mmol/L 06/14/2025 12:09 PM EDT [facility] Potassium, Arterial 5.0(H) 3.6 - 4.9 mmol/L 06/14/2025 12:09 PM EDT [facility] Chloride, Whole Blood 105 97 - 107 mmol/L 06/14/2025 12:09 PM EDT [facility] Glucose, Arterial 123(H) 74 - 99 mg/dL 06/14/2025 12:09 PM EDT [facility] Ionized Calcium, Arterial 4.2(L) 4.6 - 5.1 mg/dL 06/14/2025 12:09 PM EDT [facility] Lactate, Arterial 1.2 0.5 - 1.6 mmol/L 06/14/2025 12:09 PM EDT [facility] Body Temperature 37.0 Celsius 06/14/2025 12:09 PM EDT [facility] pH, Temp Corrected, Arterial 7.39 7.31 - 7.42 06/14/2025 12:09 PM EDT [facility] pCO2, Temp Corrected, Arterial 40 32 - 45 mm Hg 06/14/2025 12:09 PM EDT [facility] pO2, Temp Corrected, Arterial 378 >80 mm Hg 06/14/2025 12:09 PM EDT [facility] Last Inserter ID Vick Dupont 06/14/2025 12:09 PM EDT [facility] Blood Whole blood specimen / Unknown 06/14/2025 12:06 PM EDT 06/14/2025 12:09 PM EDT us Phillip Clark MD LAB POINT OF CARE TE ST DOCKED DEVICE UNSOLICITED RESULTS Final Result [facility] [address] [place] [address] * (ABNORMAL) QPLUS (06/14/2025 11:55 AM EDT) Clot Time 06/14/2025 12:12 PM EDT [facility] Clot Time Ratio 12:12 PM EDT [facility] POCT Clot Stiffness 14.6 13.0 - 33.2 hectoPascals 06/14/2025 12:12 PM EDT [facility] Platelet Contribution to Clot Stiffnes 13.1 11.9 - 29.8 hectoPascals 06/14/2025 12:12 PM EDT [facility] Fibrinogen Contribution to Clot Stiffness 1.5 1.0 - 3.7 hectoPascals 06/14/2025 12:12 PM EDT [facility] Heparinase Clot Time 175(H) 103 - 153 Seconds 06/14/2025 12:12 PM EDT [facility] Last Inserter ID Ricki Zamarripa 06/14/2025 12:12 PM EDT [facility] Device ID [id number] 06/14/2025 12:12 PM EDT [facility] Whole Blood 06/14/2025 11:5 5 AM EDT 06/14/2025 12:12 PM EDT Narrative [facility] - 06/14/2025 12:[address]: No Clot Detected Phillip Clark MD LAB POINT OF CARE TE ST DOCKED DEVICE UNSOLICITED RESULTS Final Result [facility] [address] [place] [address] * POCT ACT (06/14/2025 11:54 AM EDT) ACT+ (HIGH RANGE) 510 68 - 600 Seconds 06/14/2025 12:07 PM EDT [facility] Last Inserter ID Vick Dupont 06/14/2025 12:07 PM EDT [facility] ACT Device ID [id number] 06/14/2025 12:07 PM EDT [facility] Comment 06/14/2025 12:07 PM EDT [facility] Comment: ACT performed by staff [...] ST DOCKED DEVICE UNSOLICITED RESULTS Final Result [facility] [address] LAB [address] [place] [address] * (ABNORMAL) POCT arterial blood gas gem (06/14/2025 11:33 AM EDT) pH, Arterial 7.37 7.31 - 7.42 06/14/2025 11:35 AM EDT [facility] pCO2, Arterial 43 32 - 45 mm Hg 06/14/2025 11:35 AM EDT [facility] pO2, Arterial 380 >80 mm Hg 06/14/2025 11:35 AM EDT [facility] SO2, Arterial 99(H) 94 - 98 % 06/14/2025 11:35 AM EDT [facility] Base Excess, Arterial -0.5 -2 - 3 mmol/L 06/14/2025 11:35 AM EDT [facility] HCO3, Arterial 24.9 22 - 26 mmol/L 06/14/2025 11:35 AM EDT [facility] Total Hemoglobin, Arterial, Whole Blood 11.5(L) 13.7 - 17.5 g/dL 06/14/2025 11:35 AM EDT [facility] Hematocrit, Arterial 35.0(L) 40 - 51.0 % 06/14/2025 11:35 AM EDT [facility] Sodium, Arterial 134(L) 136 - 145 mmol/L 06/14/2025 11:35 AM EDT [facility] Potassium, Arterial 5.6(H) 3.6 - 4.9 mmol/L 06/14/2025 11:35 AM EDT [facility] Chloride, Whole Blood 103 97 - 107 mmol/L 06/14/2025 11:35 AM EDT [facility] Glucose, Arterial 123(H) 74 - 99 mg/dL 06/14/2025 11:35 AM EDT [facility] Ionized Calcium, Arterial 4.2(L) 4.6 - 5.1 mg/dL 06/14/2025 11:35 AM EDT [facility] Lactate, Arterial 1.0 0.5 - 1.6 mmol/L 06/14/2025 11:35 AM EDT [facility] Body Temperature 37.0 Celsius 06/14/2025 11:35 AM EDT [facility] pH, Temp Corrected, Arterial 7.37 7.31 - 7.42 06/14/2025 11:35 AM EDT [facility] pCO2, Temp Corrected, Arterial 43 32 - 45 mm Hg 06/14/2025 11:35 AM EDT [facility] pO2, Temp Corrected, Arterial 380 >80 mm Hg 06/14/2025 11:35 AM EDT [facility] Last Inserter ID Vick Dupont 06/14/2025 11:35 AM EDT [facility] Blood Whole blood specimen / Unknown 06/14/2025 11:33 AM EDT 06/14/2025 11:35 AM EDT Phillip Clark MD LAB POINT OF CARE TE ST DOCKED DEVICE UNSOLICITED RESULTS Final Result Performing Organization Address [facility] Co de Phone Number [facility] [address] [place] [address] * POCT ACT (06/14/2025 11:24 AM EDT) [employer] Signature ACT+ (HIGH RANGE) 520 68 - 600 Seconds 06/14/2025 11:37 AM EDT [facility] Last Inserter ID Vick Dupont 06/14/2025 11:37 AM EDT [facility] ACT Device ID [id number] 06/14/2025 11:37 AM EDT [facility] Comment 06/14/2025 11:37 AM EDT [facility] Comment: ACT performed by staff [...] RESULTS Final Result [facility] [address] LAB [address] [place] [address] * (ABNORMAL) POCT arterial blood gas gem (06/14/2025 11:03 AM EDT) pH, Arterial 7.40 7.31 - 7.42 06/14/2025 11:04 AM EDT [facility] pCO2, Arterial 41 32 - 45 mm Hg 06/14/2025 11:04 AM EDT [facility] pO2, Arterial 406 >80 mm Hg 06/14/2025 11:04 AM EDT [facility] SO2, Arterial 100(H) 94 - 98 % 06/14/2025 11:04 AM EDT [facility] Base Excess, Arterial 0.5 -2 - 3 mmol/L 06/14/2025 11:04 AM EDT [facility] HCO3, Arterial 25.4 22 - 26 mmol/L 06/14/2025 11:04 AM EDT [facility] Total Hemoglobin, Arterial, Whole Blood 11.9(L) 13.7 - 17.5 g/dL 06/14/2025 11:04 AM EDT [facility] Hematocrit, Arterial 36.0(L) 40 - 51.0 % 06/14/2025 11:04 AM EDT [facility] Sodium, Arterial 133(L) 136 - 145 mmol/L 06/14/2025 11:04 AM EDT [facility] Potassium, Arterial 5.3(H) 3.6 - 4.9 mmol/L 06/14/2025 11:04 AM EDT [facility] Chloride, Whole Blood 103 97 - 107 mmol/L 06/14/2025 11:04 AM EDT [facility] Glucose, Arterial 121(H) 74 - 99 mg/dL 06/14/2025 11:04 AM EDT [facility] Ionized Calcium, Arterial 4.2(L) 4.6 - 5.1 mg/dL 06/14/2025 11:04 AM EDT [facility] Lactate, Arterial 1.0 0.5 - 1.6 mmol/L 06/14/2025 11:04 AM EDT [facility] Body Temperature 37.0 Celsius 06/14/2025 11:04 AM EDT [facility] pH, Temp Corrected, Arterial 7.40 7.31 - 7.42 06/14/2025 11:04 AM EDT [facility] pCO2, Temp Corrected, Arterial 41 32 - 45 mm Hg 06/14/2025 11:04 AM EDT [facility] pO2, Temp Corrected, Arterial 406 >80 mm Hg 06/14/2025 11:04 AM EDT [facility] Last Inserter ID Vick Dupont 06/14/2025 11:04 AM EDT [facility] Blood Whole blood specimen / Unknown 06/14/2025 11:03 AM EDT 06/14/2025 11:04 AM EDT us Phillip Clark MD LAB POINT OF CARE TE ST DOCKED DEVICE UNSOLICITED RESULTS Final Result Performing Organization Address [facility] Co de Phone Number [facility] [address] [place] [address] * POCT ACT (06/14/2025 10:57 AM EDT) [employer] Signature ACT+ (HIGH RANGE) 569 68 - 600 Seconds 06/14/2025 11:09 AM EDT [facility] Last Inserter ID Vick Dupont 06/14/2025 11:09 AM EDT [facility] ACT Device ID [id number] 06/14/2025 11:09 AM EDT [facility] Comment 06/14/2025 11:09 AM EDT [facility] Comment: ACT performed by staff [...] UNSOLICITED RESULTS Final Result Performing Organization Address [facility] Co de Phone Number [facility] [address] [place], [place] [id number] [place] [address] LAB [address] [place] [address] * (ABNORMAL) POCT arterial blood gas gem (06/14/2025 10:33 AM [facility]) pH, Arterial 7.39 7.31 - 7.42 06/14/2025 10:34 AM [facility] pCO2, Arterial 41 32 - 45 mm Hg 06/14/2025 10:34 AM [facility] pO2, Arterial 349 >80 mm Hg 06/14/2025 10:34 AM [facility] SO2, Arterial 99(H) 94 - 98 % 06/14/2025 10:34 AM [facility] Base Excess, Arterial -0.2 -2 - 3 mmol/L 06/14/2025 10:34 AM [facility] HCO3, Arterial 24.8 22 - 26 mmol/L 06/14/2025 10:34 AM [facility] Total Hemoglobin, Arterial, Whole Blood 10.9(L) 13.7 - 17.5 g/dL 06/14/2025 10:34 AM [facility] Hematocrit, Arterial 33.0(L) 40 - 51.0 % 06/14/2025 10:34 AM [facility] Sodium, Arterial 135(L) 136 - 145 mmol/L 06/14/2025 10:34 AM [facility] Potassium, Arterial 4.8 3.6 - 4.9 mmol/L 06/14/2025 10:34 AM [facility] Chloride, Whole Blood 103 97 - 107 mmol/L 06/14/2025 10:34 AM [facility] Glucose, Arterial 116(H) 74 - 99 mg/dL 06/14/2025 10:34 AM [facility] Ionized Calcium, Arterial 4.1(L) 4.6 - 5.1 mg/dL 06/14/2025 10:34 AM [facility] Lactate, Arterial 1.3 0.5 - 1.6 mmol/L 06/14/2025 10:34 AM [facility] Body Temperature 37.0 Celsius 06/14/2025 10:34 AM [facility] pH, Temp Corrected, Arterial 7.39 7.31 - 7.42 06/14/2025 10:34 AM [facility] pCO2, Temp Corrected, Arterial 41 32 - 45 mm Hg 06/14/2025 10:34 AM EDT [facility] pO2, Temp Corrected, Arterial 349 >80 mm Hg 06/14/2025 10:34 AM EDT [facility] Last Inserter ID Vick Dupont 06/14/2025 10:34 AM EDT [facility] Blood Whole blood specimen / Unknown 06/14/2025 10:33 AM EDT 06/14/2025 10:34 AM EDT us Phillip Clark MD LAB POINT OF CARE TE ST DOCKED DEVICE UNSOLICITED RESULTS Final Result Performing Organization Address City/[facility]/ZIP Co de Phone Number [facility] [address] [place] [address] * (ABNORMAL) POCT ACT (06/14/2025 10:26 AM EDT) ACT+ (HIGH RANGE) >600(H) 68 - 600 Seconds 06/14/2025 10:40 AM EDT [facility] Last Inserter ID Vick Dupont 06/14/2025 10:40 AM EDT [facility] ACT Device ID [id number] 06/14/2025 10:40 AM EDT [facility] Comment 06/14/2025 10:40 AM EDT [facility] Comment: ACT performed by staff [...] UNSOLICITED RESULTS Final Result Performing Organization Address City/[facility]/ZIP Co de Phone Number [facility] [address] LAB [address] [place] [address] * Surgical Pathology Exam (06/14/2025 10:18 AM EDT) Case Report Surgical Pathology Case: [id number] Authorizing Provider: Phillip Clark MD Collected: 06/14/2025 1018 Ordering Location: [facility] Received: 06/14/2025 1413 Pathologist: Beth Lake MD Specimen: Heart, aortic valve leaflets 06/15/2025 11:44 AM EDT [facility] Final Diagnosis A. AORTIC VALVE LEAFLETS, REPLACEMENT: - FIBROSIS AND MYXOID DEGENERATION. 06/15/2025 11:44 AM EDT [facility] at 1144 EDT Clinical Information Severe aortic regurgitation [I35.1] 06/15/2025 11:44 AM EDT [facility] Gross Description A. AORTIC VALVE LEAFLETS Received fresh and placed in formalin labeled aortic valve leaflets are 2 white-montez soft cardiac leaflets ranging in size from 2.5-4.0 cm in greatest dimension. [employer] sections are submitted in cassette A1. Cold Time: 3h 55m April T Danielle 06/15/2025 11:44 AM EDT [facility] Tissue Heart structure / Unknown 06/14/2025 10:18 AM EDT 06/14/2025 2:13 PM EDT Comment:Pre-op diagnosis: Severe aortic regurgitation [I35.1] us Phillip Clrak MD LAB PATHOLOGY ORDERABLES Fin al Result [facility] [address] [place] [address] * (ABNORMAL) POCT arterial blood gas gem (06/14/2025 10:08 AM EDT) pH, Arterial 7.40 7.31 - 7.42 06/14/2025 10:17 AM EDT [facility] pCO2, Arterial 40 32 - 45 mm Hg 06/14/2025 10:17 AM EDT [facility] pO2, Arterial 410 >80 mm Hg 06/14/2025 10:17 AM EDT [facility] SO2, Arterial 100(H) 94 - 98 % 06/14/2025 10:17 AM EDT [facility] Base Excess, Arterial 0.0 -2 - 3 mmol/L 06/14/2025 10:17 AM EDT [facility] HCO3, Arterial 24.8 22 - 26 mmol/L 06/14/2025 10:17 AM EDT [facility] Total Hemoglobin, Arterial, Whole Blood 10.1(L) 13.7 - 17.5 g/dL 06/14/2025 10:17 AM EDT [facility] Hematocrit, Arterial 30.0(L) 40 - 51.0 % 06/14/2025 10:17 AM EDT [facility] Sodium, Arterial 133(L) 136 - 145 mmol/L 06/14/2025 10:17 AM EDT [facility] Potassium, Arterial 4.7 3.6 - 4.9 mmol/L 06/14/2025 10:17 AM EDT [facility] Chloride, Whole Blood 104 97 - 107 mmol/L 06/14/2025 10:17 AM T [facility] Glucose, Arterial 122(H) 74 - 99 mg/dL 06/14/2025 10:17 AM T [facility] Ionized Calcium, Arterial 3.9(L) 4.6 - 5.1 mg/dL 06/14/2025 10:17 AM T [facility] Lactate, Arterial 1.5 0.5 - 1.6 mmol/L 06/14/2025 10:17 AM EDT [facility] Body Temperature 37.0 Celsius 06/14/2025 10:17 AM [facility] pH, Temp Corrected, Arterial 7.40 7.31 - 7.42 06/14/2025 10:17 AM [facility] pCO2, Temp Corrected, Arterial 40 32 - 45 mm Hg 06/14/2025 10:17 AM T [facility] pO2, Temp Corrected, Arterial 410 >80 mm Hg 06/14/2025 10:17 AM EDT [facility] Last Inserter ID Vick Dupont 06/14/2025 10:17 AM EDT [facility] Blood Whole blood specimen / Unknown 06/14/2025 10:08 AM EDT 06/14/2025 10:17 AM EDT Phillip Clark MD LAB POINT OF CARE TE ST DOCKED DEVICE UNSOLICITED RESULTS Final Result [facility] [address] [place] [address] [place] [address] * (ABNORMAL) POCT ACT (06/14/2025 10:04 AM EDT) ACT+ (HIGH RANGE) >600(H) 68 - 600 Seconds 06/14/2025 10:19 AM EDT [facility] Last Inserter ID Vick Dupont 06/14/2025 10:19 AM EDT [facility] ACT Device ID [id number] 06/14/2025 10:19 AM EDT [facility] Comment 06/14/2025 10:19 AM EDT [facility] Comment: ACT performed by staff [...] ST DOCKED DEVICE UNSOLICITED RESULTS Final Result [facility] [address] LAB [address] [place] [address] * POCT ACT (06/14/2025 8:13 AM EDT) ACT+ (HIGH RANGE) 90 68 - 600 Seconds 06/14/2025 8:20 AM EDT [facility] Last Inserter ID Kevin Hernandez 06/14/2025 8:20 AM EDT [facility] ACT Device ID [id number] 06/14/2025 8:20 AM EDT [facility] Comment 06/14/2025 8:20 AM EDT [facility] Comment: ACT performed by staff [...] UNSOLICITED RESULTS Final Result [facility] [address] LAB [address] [place] [address] * (ABNORMAL) POCT arterial blood gas gem (06/14/2025 8:13 AM EDT) pH, Arterial 7.38 7.31 - 7.42 06/14/2025 8:15 AM EDT [facility] pCO2, Arterial 40 32 - 45 mm Hg 06/14/2025 8:15 AM EDT [facility] pO2, Arterial 91 >80 mm Hg 06/14/2025 8:15 AM EDT [facility] SO2, Arterial 99(H) 94 - 98 % 06/14/2025 8:15 AM EDT [facility] Base Excess, Arterial -1.3 -2 - 3 mmol/L 06/14/2025 8:15 AM EDT [facility] HCO3, Arterial 23.7 22 - 26 mmol/L 06/14/2025 8:15 AM EDT [facility] Total Hemoglobin, Arterial, Whole Blood 14.5 13.7 - 17.5 g/dL 06/14/2025 8:15 AM EDT [facility] Hematocrit, Arterial 44.0 40 - 51.0 % 06/14/2025 8:15 AM EDT [facility] Sodium, Arterial 135(L) 136 - 145 mmol/L 06/14/2025 8:15 AM EDT [facility] Potassium, Arterial 4.1 3.6 - 4.9 mmol/L 06/14/2025 8:15 AM EDT [facility] Chloride, Whole Blood 103 97 - 107 mmol/L 06/14/2025 8:15 AM EDT [facility] Glucose, Arterial 95 74 - 99 mg/dL 06/14/2025 8:15 AM EDT [facility] Ionized Calcium, Arterial 4.7 4.6 - 5.1 mg/dL 06/14/2025 8:15 AM EDT [facility] Lactate, Arterial 0.8 0.5 - 1.6 mmol/L 06/14/2025 8:15 AM EDT [facility] Body Temperature 37.0 Celsius 06/14/2025 8:15 AM EDT [facility] pH, Temp Corrected, Arterial 7.38 7.31 - 7.42 06/14/2025 8:15 AM EDT [facility] pCO2, Temp Corrected, Arterial 40 32 - 45 mm Hg 06/14/2025 8:15 AM EDT [facility] pO2, Temp Corrected, Arterial 91 >80 mm Hg 06/14/2025 8:15 AM EDT [facility] Last Inserter ID Lb Coreas 06/14/2025 8:15 AM EDT [facility] Blood Whole blood specimen / Unknown 06/14/2025 8:13 AM EDT 06/14/2025 8:15 AM EDT us Phillip Clark MD LAB POINT OF CARE TE ST DOCKED DEVICE UNSOLICITED RESULTS Final Result Performing Organization Address City/[facility]/ZIP Co de Phone Number HEALTHCARE LAB [address] [place] [address] * Type and Screen (06/14/2025 6:27 AM EDT) ABO/Rh O Positive 06/14/2025 6:37 AM EDT BLOOD BANK Antibody Screen Negative 06/14/2025 6:37 AM EDT [facility]LOOD BANK Specimen Expiration 06/17/2025 23:59 06/14/2025 6:37 AM EDT [facility]LO[facility]ANK Blood Venous blood specimen / Unknown Venipuncture / Unknown 06/14/2025 6:27 AM EDT 06/14/2025 6:37 AM EDT us Phillip Clark MD LAB BLOOD BANK TEST ORDERABL ES Final Result Performing Organization Address City/[facility] Co de Phone Number BLOOD BANK [address] [place] [address], * POCT glucose meter (06/14/2025 6:23 AM [...] Comment 06/14/2025 6:24 AM EDT [facility] Last Inserter ID Kassi Sinha 06/14/2025 6:24 AM EDT [facility] Device ID [id number] 06/14/2025 6:24 AM EDT [facility] Specimen Type POC Venous 06/14/2025 6:24 AM EDT [facility] Blood Venous blood specimen / Unknown 06/14/2025 6:23 AM EDT 06/14/2025 6:24 AM EDT Phillip Clark MD LAB POINT OF CARE TE ST DOCKED DEVICE UNSOLICITED RESULTS Final Result Performing Organization Address City/State/[facility] Co de Phone Number [facility] [address] [place] [address] documented in this encounter Visit Diagnoses Diagnosis Aortic valve regurgitation- Primary Aortic valve disorders Severe aortic regurgitation Other secondary hypertension S/P AVR Severe aortic regurgitation BMI 30.0-30.9,adult High cholesterol Pure hypercholesterolemia Diabetes Type II or unspecified type diabetes mellitus without mention of complication, not stated as uncontrolled Hypertension Unspecified essential hypertension CAD (coronary artery disease) Coronary atherosclerosis of unspecified type of vessel, [place] or graft History of coronary angioplasty with [...] insertion of stent Left ventricular enlargement Cardiomegaly Ascending aortic aneurysm, unspecified whether ruptured (CMS/HCC)- [...] PRN, Starting on Fri06/14/25 at 1956, Until 06/20/25 at 1627, Routine, Flush Before and After [...] RN)2016 (Given - Provider: Any Garcia, HESHAM) 0026 (Given - Provider: Any Garcia RN)0405 [...] on Fri06/16/25 at 1015, Until Discontinued, Routine 0822 (Given - Provider: Brittaney Dumas RN) 0847 (Given - Provider: Vicente Hussein, HESHAM) 0854 (Given - Provider: Agustina Mello, HESHAM) enoxaparin (Lovenox) syringe 70 mg (CANCELED) 70 mg (rounded from 65.175 mg = 0.75 mg/kg 86.9 kg), Subcutaneous, Every 12 hours, First dose on Fri06/16/25 at 2100, Until Discontinued, Routine 0821 (Given [...] Dumas RN)2003 (Not Given - Provider: Lori Molina, HESHAM - Reason: Patient/family refused) 912 (Given - Provider: Vicente Hussein RN)2017 (Given - Provider: Any Garcia RN) 0855 (Given - Provider: Agustina Mello, HESHAM) losartan (Cozaar) tablet 25 mg 25 mg, Oral, 2 times daily, First dose on Fri06/16/25 at 1015, Until Discontinued, Routine 0821 (Given - Provider: Brittaney Dumas RN)2003 (Given - Provider: Lori Molina RN) 0846 (Given - Provider: Vicente Hussein, HESHAM)2016 (Given - Provider: Any Garcia RN) 0854 [...] HESHAM) 0854 (Given - Provider: Agustina Mello, HESHAM)1600 [...] add comment - Comment: dose given by dancer or choreographer rn @ [facility] Joseph instructed consumer loan underwriter to hold 0900 dose)2003 (Given - [...] Discontinued, Routine 2003 (Given - Provider: Lori Molina, HESHAM) 2016 (Given - Provider: Any Garcia RN) [...] RN) 0837 (Given - Provider: Vicente Hussein, HESHAM)1957 (Given - Provider: Any Garcia RN) 0855 (Given - Provider: Agustina Mello RN) warfarin (Coumadin) tablet 4 mg 4 mg, Oral, Daily, First dose (after last modification) on Fri06/18/25 at 1700, Until Discontinued, Routine 175 (Given - Provider: Brittaney Dumas RN) 165 (Given - Provider: Vicente Hussein RN) PRN [...] RN)2003 (Given - Provider: Lori Molina RN) 430 (Given - Provider: Lori Molina RN)100 (Given - Provider: Vicente Hussein RN)170 (Given - Provider: Vicente Hussein RN) 0026 [...] (See Alternative - Provider: Lori Molina RN) 430 (See Alternative - Provider: Lori Molina RN)100 (See Alternative - Provider: Vicente Hussein RN)170 (See Alternative - Provider: Vicente Hussein RN) [...] documented as of this encounter Care Teams Weaving Instructor Relationship Specialty Start Date End Date Kamran Singh MD [address] [place] [address] PCP - General 02/28/25 documented as of this encounter
--- OUTSIDE RECORDS SUMMARY | 2025-06-14 06:45 | XMS_ITS | Encounter Summary ---
Author Organization [facility] Address [address] [place] [id number] Care Team Providers Care Supervisor [place] Name Role Phone Kamran Singh MD Primary Care Provider [phone]- [phone] Reason for Visit * Auth/Cert (Routine) Specialty Diagnoses / Procedures Referred By Nathalia t Referred To Contact Diagnoses Severe aortic regurgitation Severe aortic regurgitation [I35.1] Procedures IA -AORT GRF W/CARD BYP F/AORTIC DISSECTION AORTIC ROOT RECONSTRUCTION Phillip Clark MD [address] [facility] [address] [place] [address] Phone: tel: fax: [facility] [address] [place] [address] Phone: tel: Referral ID Status Reason Start Date Expiration Date Visits Re quested Visits Authorized [id number] 1 1 Encounter Details Date Type Department Care Team (Late st Contact Info) Description 06/14/2025 7:45 AM EDT Anesthesia Event [facility] [address] [place] [address] Jean Claude Staley MD [address] [place] [address] Ricki Zamarripa DO [address] [place] [address] Anesthesia Record Procedure Summary Procedure Name Responsible [...] Airways Type Details Placement Removal Wound 06/14/25; 08; N; Y es; Surgical; Sternum 06/14/25 0859 [...] Reason: Per order 06/14/25 0808 by Ricki Zamarrpia, DO 06/16/25 1345 by Fariba Blanton RN [...] Other (Comment); Removal Date: 06/14/25; Removal Time: 17306/14/25 0816 by Ricki Zamarripa, DO 06/14/25 173 [...] Removal Time: 1212 06/14/25 0832 by Ricki Zamarripa DO 06/15/25 1212 by Bony Thomas RN [...] any time in the past 12 m [facility], were you homeless or living in a half-way (including now)? No 06/15/2025 [facility] Utilities Answer Date Recorded In the past 12 months has th e [employer], gas, oil, or water company threatened to [...] PM EDT Associated attestation - Jean Claude Stlaey MD - 06/14/2025 4:26 PM EDT I [...] supine Prep: ChloraPrep Patient monitoring: heart rate, cardiac cath technologist and continuous pulse ox Anesthesia block type: [...] mcg/kg/min) RV: same as baseline Aortic valve: [place] valve replaced by mechanical valve. New valve [...] 05/05/25 88.7 kg (195 lb 8.8 oz) [place] Body Weight: [place] body weight: 66.1 kg (145 lb 11.6 [...] fibrillation, CHF, dysrhythmias, hyperlipidemia, pacemaker or past [place]. hypertension: Exercise tolerance is 1 flight of [...] Description 07/07/2025 1:40 PM EST Clinical Support [facility] [address] [place] [id number] 07/07/2025 2:40 PM EST Office Visit [facility] Cardiothoracic [address], [address] [place] [address] Phillip Clark MD [address] [place] [address] documented as of this encounter Procedures Procedure Name Priority Date/Time Associated Diagnosis Comments PB POINT OF CARE IMAGING PLACEHOLDER Routine 06/14/2025 2:16 PM EDT PB ANESTHESIA NON-TIMED PROCEDURE PLACEHOLDER Routine 06/14/2025 2:15 PM EDT PB POINT OF CARE IMAGING PLACEHOLDER Routine 06/14/2025 8:32 AM EDT IA INSERT/PLACE FLOW DIRECT CATH Routine 06/14/2025 8:32 AM EDT ANESTHESIA ULTRASOUND GUIDED Routine 06/14/2025 8:32 AM EDT PB ANESTHESIA NON-TIMED PROCEDURE PLACEHOLDER Routine 06/14/2025 8:32 AM EDT IA AN CENTRAL LINE DOUBLE LUMEN Routine 06/14/2025 8:32 AM EDT PB ANESTHESIA PLACEHOLDER Routine 06/14/2025 8:16 AM EDT IA AN ELECTIVE ENDOTRACHEAL AIRWAY Routine 06/14/2025 8:16 [...] supine Prep: ChloraPrep Patient monitoring: heart rate, cardiac cath technologist and continuous pulse ox Anesthesia block type: [...] mcg/kg/min) RV: same as baseline Aortic valve: [place] valve replaced by mechanical valve. New valve is well seated with appropriate movement of valve leaflets. No perivalvular leak. Mean PG of 2mm Hg and AT 55 msec. Aorta: intact after decannulation. Findings were communicated with surgeon. us Jean Claude Staley MD ANESTHESIA ORDERABLES Edited Res ult - Final * IA AN CENTRAL LINE DOUBLE LUMEN, PB ANESTHESIA NON-TIMED PROCEDURE PLACEHOLDER, ANESTHESIA ULTRASOUND GUIDED, IA INSERT/PLACE FLOW DIRECT CATH, PB POINT OF [...] MD ANESTHESIA ORDERABLES Final Resu lt * IA AN ELECTIVE ENDOTRACHEAL AIRWAY, PB ANESTHESIA PLACEHOLDER [...] Additional Comments Atraumatic. No change to dentition. Jean Claude Staley MD ANESTHESIA ORDERABLES Final [...] MD Other anesthesia staff: Ricki Zamarripa DO Authorruiz Provider Result Type Result Stat Jean Claude Staley MD ANESTHESIA ORDERABLES Final [...] Procedure, Starting on Fri06/14/25 at 1416, Until 06/14/25 at 1416, Routine, Anesthesia Intraprocedure Given 06/14/2025 2:16 PM EDT 60 mL sodium chloride 0.9 % infusion Intravenous, Continuous PRN, Starting on Fri06/14/25 at 0832, Until e 06/14/25 at 1440, Routine Rate/Dose Change 06/14/2025 12:34 [...] needed, Starting on Fri06/14/25 at 0925, Until 06/14/25 at 1440, Routine, Anesthesia Intraprocedure Given 06/14/2025 9:25 AM EDT 878 mg documented in this encounter Additional Health Concerns Assessment Noted Time A fall risk assessment has been complete d for the patient 06/09/2025 12:15 PM EDT A Body Mass Index follow-up plan has been documented for the patient 06/20/2025 10:30 AM EDT documented as of this encounter Care Teams Supervisor [place] Relationship Specialty Start Date End Date Kamran Singh MD [address] [place] [address] PCP - General 02/28/25 documented as of this encounter
--- OUTSIDE RECORDS SUMMARY | 2025-07-05 08:02 | XMS_ITS | Encounter Summary ---
Author Organization [facility] Address [address] [place] [id number] Care Team Providers Care Ash Collector Name Role Phone Kamran Singh MD Primary Care Provider +1- [phone] Encounter Details Date Type Department Care Team [...] health care facility (including now)? No 06/15/2025 [facility] Utilities Answer Date Recorded In [...] (Past 1 Month) No 025 8:00 PM ELLIT Lori Molina RN 2. Non-Specific Active Suici richie Thoughts (Past 1 Month) No 06/17/2025 8:00 PM EDT Eloina Molina RN 6. Suicidal Behavior (Lifetime) No 8:00 PM ELLIT Lori Molina RN documented as of this encounter Plan of Treatment Upcoming Encounters Date Type Department Care Team (Late st Contact Info) Description 07/07/2025 1:40 PM EST Clinical Support [facility] [address], [address] [place] [address] 07/07/2025 2:40 PM EST Office Visit [facility] [address], [address] [place] [address] Phillip Clark MD [address] [place] [address] documented as of this encounter Visit Diagnoses Not on filedocumented in this encounter Additional Health Concerns Assessment Noted Time A fall risk assessment has been complete d for the patient 06/09/2025 12:15 PM EDT A Body Mass Index follow-up plan has been documented for the patient 06/20/2025 10:30 AM EDT documented as of this encounter Care Teams Ash Collector Relationship Specialty Start Date End Date Kamran Singh MD [address] [place] [address] PCP - General 02/28/25 documented as of this encounter
--- OUTSIDE RECORDS SUMMARY | 2025-07-05 08:02 | XMS_ITS | Encounter Summary ---
Author Organization [facility] Address [address] [place] [address] Care Team Providers Care Farm Contractor Buyer Name Role Phone Kamran Singh MD Primary Care Provider +1- [phone] Encounter Details Date Type Department Care Team (Late st Contact Info) Description 01/04/2025 Orders Only External Location [address] [place] [address] Provider, External Social History Tobacco Use Types [...] Description 07/07/2025 1:40 PM EST Clinical Support [facility] Lab [address], [address] [place] [address] 07/07/2025 2:40 PM EST Office Visit [facility] Cardiothoracic [address], [address] [place] [address] Phillip Clark MD [address] [place] [address] documented as of this encounter Procedures Procedure [...] on filedocumented in this encounter Care Teams Farm Contractor Buyer Relationship Specialty Start Date End Date Kamran Singh MD [address] [place] [id number] PCP - General 02/28/25 documented as of this encounter
--- OUTSIDE RECORDS SUMMARY | 2025-07-05 08:02 | XMS_ITS | Encounter Summary ---
Author Organization [facility] Address [address] [place] [id number] Care Team Providers Care Hospitality Specialist Name Role Phone Kamran Singh MD Primary Care Provider +1- [phone] Encounter Details Date Type Department Care Team [...] in a retirement (including now)? No 06/15/2025 [facility] [...] Description 07/07/2025 1:40 PM EST Clinical Support [place] [facility] [address], [address] [place] [address] 07/07/2025 2:40 PM EST Office Visit [facility] [address], [address] [place] [address] Phillip Clark MD [address] [place] [address] documented as of this encounter Visit Diagnoses Not on filedocumented in this encounter Additional Health Concerns Assessment Noted Time A fall risk assessment has been complete d for the patient 06/09/2025 12:15 PM EDT A Body Mass Index follow-up plan has been documented for the patient 06/20/2025 10:30 AM EDT documented as of this encounter Care Teams Hospitality Specialist Relationship Specialty Start Date End Date Kamran Singh MD [address] [place] [address] PCP - General 02/28/25 documented as of this encounter
--- OUTSIDE RECORDS SUMMARY | 2025-07-05 08:02 | XMS_ITS | Encounter Summary ---
Author Organization [facility] Address [address] [place] [id number] Care Team Providers Care Show Girl Name Role Phone Kamran Singh MD Primary Care Provider +1- [phone] Encounter Details Date Type Department Care Team [...] in a longterm (including now)? No 06/15/2025 [facility] Utilities Answer Date Recorded In [...] Description 07/07/2025 1:40 PM EST Clinical Support [facility] Lab [address] [place] [address] 07/07/2025 2:40 PM EST Office Visit [facility] Cardiothoracic [address], [address] [place] [address] Phillip Clark MD [address] [place] [address] documented as of this encounter Visit Diagnoses Not on filedocumented in this encounter Additional Health Concerns Assessment Noted Time A fall risk assessment has been complete d for the patient 06/09/2025 12:15 PM EDT A Body Mass Index follow-up plan has been documented for the patient 06/20/2025 10:30 AM EDT documented as of this encounter Care Teams Show Girl Relationship Specialty Start Date End Date Kamran Singh MD [address] [place] [address] PCP - General 02/28/25 documented as of this encounter
--- OUTSIDE RECORDS SUMMARY | 2025-07-05 08:02 | XMS_ITS | Encounter Summary ---
Author Organization [facility] Address [address] [place] [address] Care Team Providers Care Lime Mixer Tender Name Role Phone Kamran Singh MD Primary Care Provider +1- [phone] Encounter Details Date Type Department Care Team [...] Description 07/07/2025 1:40 PM EST Clinical Support [facility] [address], [address] [place] [address] 07/07/2025 2:40 PM EST Office Visit [facility] Cardiothoracic [address], [address] [place] [address] Phillip Clark MD [address] [place] [address] documented as of this encounter Visit Diagnoses Not on filedocumented in this encounter Additional Health Concerns Assessment Noted Time A fall risk assessment has been complete d for the patient 05/05/2025 9:58 AM EDT A Body Mass Index follow-up plan has been documented for the patient 05/05/2025 10:51 AM EDT documented as of this encounter Care Teams Lime Mixer Tender Relationship Specialty Start Date End Date Kamran Singh MD [address] [place] [address] PCP - General 02/28/25 documented as of this encounter
--- OUTSIDE RECORDS SUMMARY | 2025-07-05 08:02 | XMS_ITS | Encounter Summary ---
Author Organization [facility] Address [address] [place] [id number] Care Team Providers Care Right Of Way Cutter Name Role Phone Kamran Singh MD Primary Care Provider +1- [phone] Encounter Details Date Type Department Care Team [...] were you homeless or living in a custodial (including now)? No 06/15/2025 [facility] Utilities Answer Date Recorded In [...] Description 07/07/2025 1:40 PM EST Clinical Support [facility] Lab [address], [address] [place] [address] 07/07/2025 2:40 PM EST Office Visit [facility] Cardiothoracic [address], [address] [place] [address] Phillip Clark MD [address] [place] [address] documented as of this encounter Visit Diagnoses Not on filedocumented in this encounter Additional Health Concerns Assessment Noted Time A fall risk assessment has been complete d for the patient 06/09/2025 12:15 PM EDT A Body Mass Index follow-up plan has been documented for the patient 06/20/2025 10:30 AM EDT documented as of this encounter Care Teams Right Of Way Cutter Relationship Specialty Start Date End Date Kamran Singh MD [address] [place] [address] PCP - General 02/28/25 documented as of this encounter
--- OUTSIDE RECORDS SUMMARY | 2025-07-05 08:02 | XMS_ITS | Encounter Summary ---
Author Organization [facility] Address [address] [place] [address] Care Team Providers Care Risk Compliance Manager Name Role Phone Kamran Singh MD Primary Care Provider +1- [phone] Encounter Details Date Type Department Care Team (Late st Contact Info) Description 01/28/2025 Orders Only External Location [address] [place] [address] Provider, External Social History Tobacco Use Types [...] Description 07/07/2025 1:40 PM EST Clinical Support [facility] Lab [address], [address] [place] [address] 07/07/2025 2:40 PM EST Office Visit [facility] Cardiothoracic [address], [address] [place] [address] Phillip Clark MD [address] [place] [address] documented as of this encounter Procedures Procedure [...] on filedocumented in this encounter Care Teams Risk Compliance Manager Relationship Specialty Start Date End Date Kamran Singh MD [address] [place] [address] PCP - General 02/28/25 documented as of this encounter
--- OUTSIDE RECORDS SUMMARY | 2025-07-05 08:02 | XMS_ITS | Encounter Summary ---
Author Organization [facility] Address [address] [place] [address] Care Team Providers Care Windows Application Packager Name Role Phone Kamran Singh MD Primary Care Provider +1- [phone] Encounter Details Date Type Department Care Team [...] Description 07/07/2025 1:40 PM EST Clinical Support [facility] [address], [address] [place] [address] 07/07/2025 2:40 PM EST Office Visit [facility] Cardiothoracic [address], [address] [place] [address] Phillip Clark MD [address] [place] [address] documented as of this encounter Visit Diagnoses Not on filedocumented in this encounter Additional Health Concerns Assessment Noted Time A fall risk assessment has been complete d for the patient 06/09/2025 12:15 PM EDT A Body Mass Index follow-up plan has been documented for the patient 06/09/2025 2:00 PM EDT documented as of this encounter Care Teams Windows Application Packager Relationship Specialty Start Date End Date Kamran Singh MD [address] [place] [address] PCP - General 02/28/25 documented as of this encounter
--- OUTSIDE RECORDS SUMMARY | 2025-07-05 08:02 | XMS_ITS | Encounter Summary ---
Author Organization [facility] Address [address] [place] [id number] Care Team Providers Care Tool And Die Repair Name Role Phone Kamran Singh MD Primary Care Provider +1- [phone] Encounter Details Date Type Department Care Team [...] in a intermediate (including now)? No 06/15/2025 [facility] Utilities Answer Date Recorded In [...] Description 07/07/2025 1:40 PM EST Clinical Support [facility] [address], [address] [place] [address] 07/07/2025 2:40 PM EST Office Visit [facility] [address], [address] [place] [address] Phillip Clark MD [address] [place] [address] documented as of this encounter Visit Diagnoses Not on filedocumented in this encounter Additional Health Concerns Assessment Noted Time A fall risk assessment has been complete d for the patient 06/09/2025 12:15 PM EDT A Body Mass Index follow-up plan has been documented for the patient 06/20/2025 10:30 AM EDT documented as of this encounter Care Teams Tool And Die Repair Relationship Specialty Start Date End Date Kamran Singh MD [address] [place] [address] PCP - General 02/28/25 documented as of this encounter
--- OUTSIDE RECORDS SUMMARY | 2025-07-05 08:02 | XMS_ITS | Encounter Summary ---
Author Organization [facility] Address [address] [place] [address] Care Team Providers Care Service Order Taker Name Role Phone Kamran Singh MD Primary Care Provider +1- [phone] Encounter Details Date Type Department Care Team [...] Description 07/07/2025 1:40 PM EST Clinical Support [facility] [address], [address] [place] [address] 07/07/2025 2:40 PM EST Office Visit [facility] Cardiothoracic [address], [address] [place] [address] Phillip Clark MD [address] [place] [address] documented as of this encounter Visit Diagnoses Not on filedocumented in this encounter Additional Health Concerns Assessment Noted Time A fall risk assessment has been complete d for the patient 05/05/2025 9:58 AM EDT A Body Mass Index follow-up plan has been documented for the patient 05/05/2025 10:51 AM EDT documented as of this encounter Care Teams Service Order Taker Relationship Specialty Start Date End Date Kamran Singh MD [address] [place] [address] PCP - General 02/28/25 documented as of this encounter
--- OUTSIDE RECORDS SUMMARY | 2025-07-05 08:03 | XMS_ITS | Encounter Summary ---
Author Organization [facility] Address [address] [place] [id number] Care Team Providers Care Salesperson Flying Squad Name Role Phone Kamran Singh MD Primary Care Provider +1- [phone] Encounter Details Date Type Department Care Team [...] a group home (including now)? No 06/15/2025 [facility] Utilities [...] Description 07/07/2025 1:40 PM EST Clinical Support [place] [facility] [address], [address] [place] [address] 07/07/2025 2:40 PM EST Office Visit [facility] Cardiothoracic [address], [address] [place] [address] Phillip Clark MD [address] [place] [address] documented as of this encounter Visit Diagnoses Not on filedocumented in this encounter Additional Health Concerns Assessment Noted Time A fall risk assessment has been complete d for the patient 06/09/2025 12:15 PM EDT A Body Mass Index follow-up plan has been documented for the patient 06/20/2025 10:30 AM EDT documented as of this encounter Care Teams Salesperson Flying Squad Relationship Specialty Start Date End Date Kamran Singh MD [address] [place] [address] PCP - General 02/28/25 documented as of this encounter
--- OUTSIDE RECORDS SUMMARY | 2025-07-05 08:03 | XMS_ITS | Encounter Summary ---
Author Organization [facility] Address [address] [place] [id number] Care Team Providers Care Arts And Crafts Teacher Name Role Phone Kamran Singh MD Primary Care Provider +1- [phone] Encounter Details Date Type Department Care Team [...] a senior living (including now)? No 06/15/2025 [facility] Utilities Answer Date Recorded In [...] Description 07/07/2025 1:40 PM EST Clinical Support [facility] Lab [address], [address] [place] [address] 07/07/2025 2:40 PM EST Office Visit [facility] Cardiothoracic [address], [address] [place] [address] Phillip Clark MD [address] [place] [address] documented as of this encounter Visit Diagnoses Not on filedocumented in this encounter Additional Health Concerns Assessment Noted Time A fall risk assessment has been complete d for the patient 06/09/2025 12:15 PM EDT A Body Mass Index follow-up plan has been documented for the patient 06/20/2025 10:30 AM EDT documented as of this encounter Care Teams Arts And Crafts Teacher Relationship Specialty Start Date End Date Kamran Singh MD [address] [place] [address] PCP - General 02/28/25 documented as of this encounter
--- OUTSIDE RECORDS SUMMARY | 2025-07-05 08:03 | XMS_ITS | Encounter Summary ---
Author Organization [facility] Address [address] [place] [id number] Care Team Providers Care Line Up Examiner Name Role Phone Kamran Singh MD Primary Care Provider +1- [phone] Encounter Details Date Type Department Care Team [...] a nursing home (including now)? No 06/15/2025 [facility] Utilities Answer Date Recorded In [...] Description 07/07/2025 1:40 PM EST Clinical Support [facility] Lab [address], [address] [place] [address] 07/07/2025 2:40 PM EST Office Visit [facility] Cardiothoracic [address], [address] [place] [address] Phillip Clark MD [address] [place] [address] documented as of this encounter Visit Diagnoses Not on filedocumented in this encounter Additional Health Concerns Assessment Noted Time A fall risk assessment has been complete d for the patient 06/09/2025 12:15 PM EDT A Body Mass Index follow-up plan has been documented for the patient 06/20/2025 10:30 AM EDT documented as of this encounter Care Teams Line Up Examiner Relationship Specialty Start Date End Date Kamran Singh MD [address] [place] [address] PCP - General 02/28/25 documented as of this encounter
--- OUTSIDE RECORDS SUMMARY | 2025-07-05 08:05 | XMS_ITS | Encounter Summary ---
Author Organization [facility] Address [address] [place] [id number] Care Team Providers Care Nursery Nurse Name Role Phone Kamran Singh MD Primary Care Provider +1- [phone] Encounter Details Date Type Department Care Team (Latest Contact Info) Description 07/04/2025 Travel Social History Tobacco Use Types Packs/Day [...] in a fpc (including now)? No 06/15/2025 [facility] Utilities Answer Date Recorded In the [...] Description 07/07/2025 1:40 PM EST Clinical Support [facility] Lab [address], [address] [place] [address] 07/07/2025 2:40 PM EST Office Visit [facility] Cardiothoracic [address], [address] [place] [address] Phillip Clark MD [address] [place] [address] documented as of this encounter Visit Diagnoses Not on filedocumented in this encounter Additional Health Concerns Assessment Noted Time A fall risk assessment has been complete d for the patient 06/09/2025 12:15 PM EDT A Body Mass Index follow-up plan has been documented for the patient 06/20/2025 10:30 AM EDT documented as of this encounter Care Teams Nursery Nurse Relationship Specialty Start Date End Date Kamran Singh MD [address] [place] [address] PCP - General 02/28/25 documented as of this encounter
--- OUTSIDE RECORDS SUMMARY | 2025-07-05 08:05 | XMS_ITS | Clinical Summary ---
Author Organization [facility] Address [address] [place] [id number] Care Team Providers Care Coding Clerks Supervisor Name Role Phone Kamran Singh MD Primary Care Provider +1- [phone] Allergies Active Allergy Reactions Criticality Noted Date [...] 2 tablets by mouth every morning. Under [place] law, monthly prescriptions (30 days) can be [...] Monitor per protocol. BMI 30.0-30.9,adult 03/10/2025 06/20/20 Assessment & Plan (06/16/2025 1:20 PM EDT): [...] Encounters Date Type Department Care Team Description 07/04/2025 Travel 06/30/2025 Travel 06/20/2025 Travel 06/19/2025 Travel 06/18/2025 Travel 06/17/2025 Travel 06/16/2025 Travel 06/15/2025 Travel 06/14/2025 7:45 AM EDT - 06/14/2025 8:15 PM EDT Surgery [facility] [address] [place] [address] Phillip Clark MD Aortic valve replacement [25618 (CPT )] 06/14/2025 7:45 AM EDT Anesthesia Event [facility] [address] [place] [address] Jean Claude Staley MD Burns, Jonathon R, DO 06/14/2025 5:18 AM EDT - 06/20/2025 2:25 PM EDT Hospital Encounter [facility] Inpatient [address] [place] [address] Phillip Clark MD Other secondary hypertension (Primary Dx); Severe aortic regurgitation; S/P AVR Discharge Disposition: Home or Self Care 06/14/2025 Travel 06/09/2025 1:42 PM EDT - 06/09/2025 11:59 PM EDT Hospital Encounter [facility] [address], [address] [place] [address] Severe aortic regurgitation Discharge Disposition: Home or Self Care 06/09/2025 12:20 PM EDT Office Visit [facility] Cardiothoracic [address], [address] [place] [address] Phillip Clark MD Severe aortic regurgitation (Primary Dx) 06/09/2025 Travel 06/07/2025 8:30 AM EDT Pre-Admission Testing [facility] Pre-op Clinic [address], [address] [place] [address] 06/07/2025 Travel 06/02/2025 Travel 05/05/2025 10:20 AM EDT Office Visit [facility] Cardiothoracic [address], [address] [place] [address] Phillip Clark MD Severe aortic regurgitation (Primary Dx) 05/05/2025 Travel 04/28/2025 Travel 04/14/2025 1:00 PM EDT Office Visit [facility] Cardiothoracic [address], [address] [place] [address] Phillip Clark MD Ascending aortic aneurysm, unspecified whether ruptured (CMS/HCC) (Primary Dx); Aortic valve insufficiency, etiology of cardiac valve disease unspecified 04/14/2025 7:13 AM EDT - 04/14/2025 11:59 PM EDT Hospital Encounter [facility] [address] [place] [address] Ascending aortic aneurysm, unspecified whether ruptured (CMS/HCC) [...] in a residential (including now)? No 06/15/2025 [facility] Utilities Answer Date Recorded In the past [...] Description 07/07/2025 1:40 PM EST Clinical Support [facility] [address], [address] [place] [address] 07/07/2025 2:40 PM EST Office Visit [facility] Cardiothoracic [address], [address] [place] [address] Phillip Clark MD [address] [place] [address] Health Maintenance Due Date Last Done Comments [...] - Risk 60-74 years 1-dose series) 2015 [id number] Vaccine ( season) 2025 06/22/2022, 01/19/2022, 07/12/2021, [...] this topic Medical Devices Implanted Type Area Packer Denture Device Identifier Shelf Expiration Date Model / Serial / Lot Graft Ptch 6x6in [id number] - [id number] Implanted:Qty: 1 on 06/14/2025 by Phillip Clark MD at [facility] N/A: Heart Bard Peripherial Vascular-[id number] / / Valve Atrial 25mm Rotatabl Cuf Std Ptfe - [id number] - [id number] Implanted:Qty: 1 on 06/14/2025 by Phillip Clark MD at [facility] N/A: Heart [id number] 03/28/2030 [id number] / [id number] / [id number] Procedures Procedure Name Priority Date/Time Associated Diagnosis [...] INR 2.5 to 3.5 Prevention of recurrent [place] INR 2.5 to 3.5 us Phillip Clark MD LAB BLOOD ORDERABLES Final R esult [facility] [address] [place] [address] * (ABNORMAL) CBC (06/20/2025 1:52 AM EDT) [...] ORDERABLES Final R esult Performing Organization Address City/[facility]/ZIP Co de Phone Number [facility] [address] [place] [address] * Phosphorus (06/20/2025 1:52 AM EDT) Only the most recent of8 resultswithin the time period is included. Pathologist [facility] Phosphorus, Plasma 2.8 2.5 - 4.5 mg/dL 06/20/2025 2:23 AM EDT [facility] Blood Venous blood specimen / Unknown Venipuncture / Unknown 06/20/2025 1:52 AM EDT 06/20/2025 1:59 AM EDT us Phillip Clark MD LAB BLOOD ORDERABLES Final R esult Performing Organization Address [facility] Co de Phone Number [facility] [address] [place] [address] * Magnesium (06/20/2025 1:52 AM EDT) Only the most recent of10 resultswithin the time period is included. Magnesium, Plasma 2.2 1.9 - 2.4 mg/dL 06/20/2025 2:23 AM EDT [facility] Blood Venous blood specimen / Unknown Venipuncture / Unknown 06/20/2025 1:52 AM EDT 06/20/2025 1:59 AM EDT us Phillip Clark MD LAB BLOOD ORDERABLES Final R esult Performing Organization Address City[facility] Co de Phone Number [facility] [address] [place] [address] * (ABNORMAL) Basic metabolic panel (06/20/2025 1:52 AM EDT) Only the most recent of9 resultswithin the time period is included. Pathologist [facility] Glucose, Plasma 107(H) 74 - 99 mg/dL [...] esult [facility] [address] [place] [address] * PERIPHERAL IV (SMARTFORM LINK) (06/20/2025 1:47 [...] QTC Interval 478 ms MUSE ECG P [place] 43 degrees MUSE ECG R [place] -30 degrees MUSE ECG T Wave [place] 36 degrees MUSE ECG Diagnosis Poor data quality, interpretation may be adversely affected MUSE ECG Diagnosis Sinus rhythm with premature supraventricular complexes and with occasional premature ventricular complexes MUSE ECG Diagnosis Left axis deviation MUSE ECG Diagnosis Poor R-wave progression MUSE ECG Diagnosis Abnormal ECG MUSE ECG Diagnosis Recommend repeat ECG MUSE ECG Diagnosis MUSE ECG Diagnosis Confirmed by Aman Coe ([id number]) on 06/19/2025 1:33:10 PM MUSE ECG 06/19/2025 [...] esult [facility] [address] [place] [address] * SD CRITICAL CARE, E/M 30-74 MINUTES [...] Comment 06/16/2025 8:45 AM EDT HEALTHCARE LAB Shell [employer] M[employer] Supervisor ID Fariba Blanton 025 8:45 AM EDT [facility] Device ID [id number] 06/16/2025 8:45 AM EDT HEALTHCARE LAB Specimen Type POC Arterial 06/16/2025 8:45 AM EDT [facility] Blood Arterial blood specimen / Unknown 06/16/2025 8:40 AM EDT 06/16/2025 8:45 AM EDT us Phillip Clark MD LAB POINT OF CARE TE ST DOCKED DEVICE UNSOLICITED RESULTS Final Result [facility] [address] [place] [address] * XR Abdomen 1 View (06/16/2025 1:20 [...] esult [facility] [address] [place] [address] * SD CRITICAL CARE, E/M 30-74 MINUTES [...] R esult Performing Organization Address [facility] Co de Phone Number [facility] [address] [place] [address] * Ionized calcium, whole blood (06/15/2025 6:40 AM EDT) Ionized Calcium, Whole Blood 4.6 4.6 - 5.1 mg/dL LAB HEMATOLOGY METHOD 06/15/2025 6:50 AM EDT [facility] Blood Arterial blood specimen / Unknown Venipuncture / Unknown 06/15/2025 6:40 AM EDT 06/15/2025 6:48 AM EDT us Phillip Clark MD LAB BLOOD ORDERABLES Final R esult Performing Organization Address City/[facility]/ZIP Co de Phone Number [facility] [address] [place] [address] * SD CRITICAL CARE, ADDL 30 MIN, [...] MD LAB BLOOD ORDERABLES Final R esult [facility] [address] [place] [address] * (ABNORMAL) Hemoglobin (06/15/2025 12:20 AM EDT) Only the most recent of2 resultswithin the time period is included. HGB 13.6(L) 13.7 - 17.5 g/dL LAB HEMATOLOGY METHOD 06/15/2025 12:36 AM EDT [facility] Blood Venous blood specimen / Unknown Venipuncture / Unknown 06/15/2025 12:20 AM EDT 06/15/2025 12:26 AM EDT Phillip Clark MD LAB BLOOD ORDERABLES Final R esult Performing Organization Address City/[facility]/ZIP Co de Phone Number [facility] [address] [place] [address] * Hematocrit (06/15/2025 12:20 AM EDT) Only the most recent of2 resultswithin the time period is included. HCT 41.0 40.0 - 51.0 % LAB HEMATOLOGY METHOD 06/15/2025 12:36 AM EDT [facility] Blood Venous blood specimen / Unknown Venipuncture / Unknown 06/15/2025 12:20 AM EDT 06/15/2025 12:26 AM EDT Phillip Clark MD LAB BLOOD ORDERABLES Final R esult [facility] [address] [place] [address] * Potassium, Plasma (06/15/2025 12:20 AM EDT) Only the most recent of3 resultswithin the time period is included. Potassium, Plasma 4.5 3.6 - 4.9 mmol/L 06/15/2025 12:51 AM EDT [facility] Blood Venous blood specimen / Unknown Venipuncture / Unknown 06/15/2025 12:20 AM EDT 06/15/2025 12:26 AM EDT us Phillip Clark MD LAB BLOOD ORDERABLES Final R esult [facility] [address] [place] [address] * SD CRITICAL CARE, E/M 30-74 MINUTES [...] LAB HEMATOLOGY METHOD 06/14/2025 3:24 PM EDT [facility] Blood Mixed venous blood specimen / Unknown Venipuncture / Unknown 06/14/2025 3:00 PM EDT 06/14/2025 3:23 PM EDT Phillip Clark MD LAB BLOOD ORDERABLES Final R esult Performing Organization Address [facility] [place] [address] * Eli auris Surveillance by PCR (06/14/2025 2:37 PM EDT) Eli auris PCR Result Not Detected Not Detected 06/15/2025 12:46 PM EDT [facility] Swab (Axilla and Groin) Non-blood Collection / Unknown 06/14/2025 2:37 PM EDT 06/14/2025 3:10 PM EDT Narrative [facility] - 06/15/2025 12:46 PM EDT This PCR assay was developed and its performance characteristics determined by [facility] as appropriate for clinical purposes. This assay has not been cleared or approved by the FDA, but is performed in a CLIA regulated laboratory that is qualified to perform high-complexity testing. Phillip Clark MD LAB MICROBIOLOGY - GENERAL O RDERABLES Final Result Performing Organization Address [facility] [place] [address] * Multi Drug Resistance Test (06/14/2025 2:37 PM EDT) Culture No growth at day 1 06/15/2025 4:03 PM EDT [facility] Swab (Nares and Smita Rectal) Non-blood [...] O RDERABLES Final Result Performing Organization Address [facility] [place] [address] * APTT (06/14/2025 2:36 PM EDT) Only [...] R esult Performing Organization Address [facility] [place] [address] * PB POINT OF CARE IMAGING PLACEHOLDER [...] mcg/kg/min) RV: same as baseline Aortic valve: st. croix valve replaced by mechanical valve. New valve is well seated with appropriate movement of valve leaflets. No perivalvular leak. Mean PG of 2mm Hg and AT 55 msec. Aorta: intact after decannulation. Findings were communicated with surgeon. Jean Claude Staley MD ANESTHESIA ORDERABLES Edited Res ult - Final * (ABNORMAL) POCT arterial blood gas gem (06/14/2025 2:00 PM EDT) Only the most recent of10 resultswithin the time period is included. pH, Arterial 7.35 7.31 - 7.42 06/14/2025 2:02 PM EDT [facility] pCO2, Arterial 38 32 - 45 mm Hg 06/14/2025 2:02 PM EDT [facility] pO2, Arterial 376 >80 mm Hg 06/14/2025 2:02 PM EDT [facility] SO2, Arterial 100(H) 94 - 98 % 06/14/2025 2:02 PM EDT [facility] Base Excess, Arterial -4.2(L) -2 - 3 mmol/L 06/14/2025 2:02 PM EDT [facility] HCO3, Arterial 21.0(L) 22 - 26 mmol/L 06/14/2025 2:02 PM EDT [facility] Total Hemoglobin, Arterial, Whole Blood 14.5 13.7 - 17.5 g/dL 06/14/2025 2:02 PM EDT [facility] Hematocrit, Arterial 44.0 40 - 51.0 % 06/14/2025 2:02 PM EDT [facility] Sodium, Arterial 136 136 - 145 mmol/L 06/14/2025 2:02 PM EDT [facility] Potassium, Arterial 3.4(L) 3.6 - 4.9 mmol/L 06/14/2025 2:02 PM EDT [facility] Chloride, Whole Blood 105 97 - 107 mmol/L 06/14/2025 2:02 PM EDT [facility] Glucose, Arterial 138(H) 74 - 99 mg/dL 06/14/2025 2:02 PM EDT [facility] Ionized Calcium, Arterial 4.9 4.6 - 5.1 mg/dL 06/14/2025 2:02 PM EDT [facility] Lactate, Arterial 4.2(H) 0.5 - 1.6 mmol/L 06/14/2025 2:02 PM EDT [facility] Body Temperature 37.0 Celsius 06/14/2025 2:02 PM EDT [facility] pH, Temp Corrected, Arterial 7.35 7.31 - 7.42 06/14/2025 2:02 PM EDT [facility] pCO2, Temp Corrected, Arterial 38 32 - 45 mm Hg 06/14/2025 2:02 PM EDT [facility] pO2, Temp Corrected, Arterial 376 >80 mm Hg 06/14/2025 2:02 PM EDT [facility] [employer] Supervisor ID Ricki Zamarripa 06/14/2025 2:02 PM EDT [facility] Blood Whole blood specimen / Unknown 06/14/2025 2:00 PM EDT 06/14/2025 2:02 PM EDT Phillip Clark MD LAB POINT OF CARE TE ST DOCKED DEVICE UNSOLICITED RESULTS Final Result Performing Organization Address [facility] Co de Phone Number HEALTHCARE LAB [address] [place] [address] * POCT ACT (06/14/2025 12:43 PM EDT) Only the most recent of7 resultswithin the time period is included. ACT+ (HIGH RANGE) 98 68 - 600 Seconds 06/14/2025 12:49 PM EDT HEALTHCARE LAB [employer] Supervisor ID Vick Dupont 06/14/2025 12:49 PM EDT HEALTHCARE LAB ACT Device ID [id number] 06/14/2025 12:49 PM EDT [facility] Comment 06/14/2025 12:49 PM EDT [place] [...] Final Result Performing Organization Address [facility] de Phone Number HEALTHCARE LAB [address] LAB [address] [place] [address] * (ABNORMAL) QPLUS (06/14/2025 11:55 AM EDT) [...] 06/14/2025 12:12 PM EDT [facility] [employer] Supervisor ID Ricki Zamarripa 06/14/2025 12:12 PM EDT [facility] Device ID [id number] 06/14/2025 12:12 PM EDT HEALTHCARE LAB Whole Blood 06/14/2025 11:5 5 AM EDT 06/14/2025 12:12 PM EDT Narrative [facility] - 06/14/2025 12:[address]: No Clot Detected us Phillip Clark MD LAB POINT OF CARE TE ST DOCKED DEVICE UNSOLICITED RESULTS Final Result Performing Organization Address City/State/[facility] Co de Phone Number HEALTHCARE LAB [address] [place] [address] * Surgical Pathology Exam (06/14/2025 10:18 AM EDT) Case Report Surgical Pathology Case: [id number] Authorizing Provider: Phillip Clark MD Collected: 06/14/2025 1018 Ordering Location: [facility] A OPERATING ROOM Received: 06/14/2025 1413 Pathologist: [...] size from 2.5-4.0 cm in greatest dimension. Belt Back Operator sections are submitted in cassette A1. Cold Time: 3h 55m April Santos 06/15/2025 11:44 AM EDT [facility] Tissue Heart structure / Unknown 06/14/2025 10:18 AM EDT 06/14/2025 2:13 PM EDT Comment:Pre-op diagnosis: Severe aortic regurgitation [I35.1] us Phillip Clark MD LAB PATHOLOGY ORDERABLES Fin al Result [facility] [address] [place] [address] * SD AN CENTRAL LINE DOUBLE LUMEN, [...] ORDERABL ES Final Result BLOOD BANK [address] [place] [address], * Type & Screen, 30 Days (06/09/2025 [...] Final Result Performing Organization Address [facility]/ZIP Co de Phone Number BLOOD BANK [address] * (ABNORMAL) Hemoglobin A1c (06/09/2025 1:39 [...] Adults <6.0% Children and Adolescents <7.5% Source: [place] [employer]. Standards of medical care in diabetes,2017. Diabetes Care.2017:40 (suppl 1):S1-S135. Phillip Clark MD LAB BLOOD ORDERABLES Final R esult Performing Organization Address City/[facility]/ZIP Co de Phone Number [facility] [address] [place] [address] * Comprehensive Metabolic Panel, Plasma (06/09/2025 1:39 [...] esult [facility] [address] [place] [address] * CT Chest wo IV Contrast (04/14/2025 [...] Resu lt from Last 3 Months Insurance [employer] MEDICARE Advance Directives * Full Code (Latest Code Status on File) Date Activated Date Inactivated Comments 06/14/2025 2:35 PM 06/20/2025 4:27 PM Question Answer Comments I have reviewed the capacity from the link above and, if needed, have updated to appropriate status: Yes Care Teams Coding Clerks Supervisor Relationship Specialty Start Date End Date Kamran Singh MD [address] [place] [address] PCP - General 02/28/25
--- NOTE | 2025-07-05 08:15 | CA_ITS ---
APPROVED REPORT EXAM: Limited 2D Echocardiogram Crew Boat Operator: Shira Lucio RCS, RVS Ht: 5 ft 7 in Wt: 185lbs BSA: 1.96 BP: 124/69 mmHg Indications: Pericardial Effusion follow up Other Information Study Quality: Fair Conclusion This is a limited TTE to evaluate for pericardial effusion. Limited windows are obtained. There is a small sized, circumferential pericardial effusion present. The largest pocket is noted posteriorly and measures 0.6 cm in diastole. No echo indications of tamponade. Compared to prior recent TTE from 07/01/2025, the size of the pericardial effusion has improved. Electronically signed by : Ronit Simms MD 07/06/2025 00:42:47
[2025-07-05 15:13] LABS: PHA INR Fingerstick 2.1 (0.9-1.1)
== END 2025-07-05 15:21 ==
LOC: RT 07:58
PROVIDERS: Nurse Practitioner; PCP Family Medicine; Visit Provider Physician Assistant
DX: I31.39 Other pericardial effusion (noninflammatory) (principal); I11.0 Hypertensive heart disease with heart failure; I50.40 Unspecified combined systolic (congestive) and diastolic (congestive) heart failure; I25.10 Atherosclerotic heart disease of native coronary artery without angina pectoris; E78.5 Hyperlipidemia, unspecified; I72.9 Aneurysm of unspecified site; Z95.5 Presence of coronary angioplasty implant and graft; Z95.2 Presence of prosthetic heart valve
CPT/HCPCS: 85610; 93308; 99211; G0463

== ENCOUNTER 2025-07-19 11:03 | Outpatient (CLI) | payer BC, MEDICARE, SELFPAY ==
[2025-07-19 11:55] LABS: PHA INR Fingerstick 2.2 (0.9-1.1)
[2025-07-19 13:34] LABS: Alanine Aminotransferase 29 U/L (12-78); Albumin Level 4.8 g/dl (3.5-5.0); Albumin/Globulin Ratio 2.0 (1.1-1.8); Alkaline Phosphatase 133 U/L (38-126); Anion Gap 9.4 mEq/L (5-15); Aspartate Amino Transferase 31 U/L (17-59); Bilirubin,Total 0.7 mg/dl (0.2-1.3); Blood Urea Nitrogen 21 mg/dl (9-20); Calcium 9.7 mg/dl (8.4-10.2); Carbon Dioxide 28 mmol/L (22.0-30.0); Chloride 98 mmol/L (98-107); Creatinine,Serum 1.00 mg/dl (0.66-1.25); Estimated Glomerular Filt Rate 74 ml/min (>60); GFR (African American) 90 ML/MIN (>60); Globulin 2.4 g/dL (1.3-3.2); Glucose 88 mg/dl (74-100); Potassium 4.4 mmoL/L (3.5-5.1); Sodium 131 mmol/L (136-145); Total Protein,Serum 7.2 g/dl (6.3-8.2)
== END 2025-07-19 12:00 | disposition home or self-care (01) ==
LOC: ACC 11:05
PROVIDERS: Nurse Practitioner Family; PCP Family Medicine; Visit Provider Nurse Practitioner
DX: R79.89 Other specified abnormal findings of blood chemistry (principal); Z79.01 Long term (current) use of anticoagulants; Z95.2 Presence of prosthetic heart valve
CPT/HCPCS: 36415; 80053; 80074; 85610; 99211; G0463

== ENCOUNTER 2025-08-01 10:14 | Outpatient (CLI) | payer BC, MEDICARE, SELFPAY ==
--- OUTSIDE RECORDS SUMMARY | 2025-06-07 07:30 | XMS_ITS | Encounter Summary ---
Author Organization [facility] Address [address] [place] [address] Care Team Providers Care Purchasing/Receiving Name Role Phone Kamran Singh MD Primary Care Provider + [phone] Encounter Details Date Type Department Care Team (Late st Contact Info) Description 06/07/2025 8:30 AM EDT Pre-Admission Testing [place] [facility] [address], [address] [place] [id number] Social History Tobacco Use Types Packs/Day Years [...] any time in the past 12 m [facility], were you homeless or living in a long-term (including now)? No 06/15/2025 [facility] Utilities Answer Date Recorded In the [...] with Phillip Clark MD on 06/14/2025 at [facility] under general anesthesia. aortic enlargement, measured as [...] fibrillation, CHF, dysrhythmias, hyperlipidemia, pacemaker or past [place]. hypertension: Exercise tolerance is 1 flight of [...] 2 tablets by mouth every morning. Under [place] law, monthly prescriptions (30days) can be refilled [...] card, photo ID, along with power of brick carrier, guardianship or advanced directives if applicable Do [...] PM EST Appointment Cardiac Imaging [address] [place] [address] 07/20/2026 1:40 PM EST Office Visit [place] [facility] [address], [address] [place] [address] Phillip Clark MD [address] [place] [address] documented as of this encounter Visit Diagnoses Not on filedocumented in this encounter Additional Health Concerns Assessment Noted Time A fall risk assessment has been complete d for the patient 05/05/2025 9:58 AM EDT A Body Mass Index follow-up plan has been documented for the patient 05/05/2025 10:51 AM EDT documented as of this encounter Care Teams Purchasing/Receiving Relationship Specialty [place] [id number] PCP - General 02/28/25 documented as of this encounter
--- OUTSIDE RECORDS SUMMARY | 2025-06-09 11:20 | XMS_ITS | Encounter Summary ---
Author Organization [facility] Address [address] [id number] Care Team Providers Care Laundry Presser Name Role Phone Kamran Singh MD Primary Care Provider [phone] Encounter Details Date Type Department Care Team (Latest Contact Info) Description 06/09/2025 12:20 PM EDT Office Visit [place] [facility] [address], [address] [place] [address] Phillip Clark MD [address] [facility] [address] [place] [address] Severe aortic regurgitation (Primary Dx) [...] Notes * Progress Notes - Lorelei Dominique, SUBMARINE ADVISORY TEAM WATCH OFFICER - 06/09/2025 12:20 PM EDT Reason for [...] 2 tablets by mouth every morning. Under [employer] law, monthly prescriptions (30 days) can be refilled at 25 days and three-month prescriptions (90 days) at 80 days. Please contact the insurance company with questions if refills are denied. Patient taking differently: Take 2 tablets by mouth every 4 hours as needed. Under [employer] law, monthly prescriptions (30 days) can be [...] PM EST Appointment Cardiac Imaging [address] [place] [address] 07/20/2026 1:40 PM EST Office Visit [place] [facility] [address], [address] [place] [address] Phillip Clark MD [address] [place] [address] documented as of this encounter Results * [...] LAB HEMATOLOGY METHOD 06/09/2025 3:49 PM EDT [facility] RBC Count 5.62 4.60 - 6.10 10*6/uL LAB HEMATOLOGY METHOD 06/09/2025 3:49 PM EDT [facility] HGB 15.6 13.7 - 17.5 g/dL LAB HEMATOLOGY METHOD 06/09/2025 3:49 PM EDT [facility] HCT 49.2 40.0 - 51.0 % LAB HEMATOLOGY METHOD 06/09/2025 3:49 PM EDT [facility] Platelet Count 205 155 - 369 10*3/uL LAB HEMATOLOGY METHOD 06/09/2025 3:49 PM EDT [facility] MCV 88 79 - 98 fL LAB HEMATOLOGY METHOD 06/09/2025 3:49 PM EDT [facility] MCH 27.8 26.0 - 32.0 pg LAB HEMATOLOGY METHOD 06/09/2025 3:49 PM EDT [facility] MCHC 31.7 30.7 - 35.5 g/dL LAB HEMATOLOGY METHOD 06/09/2025 3:49 PM EDT [facility] RDW 15.3(H) 11.5 - 14.5 % LAB HEMATOLOGY METHOD 06/09/2025 3:49 PM EDT [facility] MPV 10.6 8.8 - 12.5 fL LAB HEMATOLOGY METHOD 06/09/2025 3:49 PM EDT [facility] nRBC 0.0 <=0.0 per 100 WBCs LAB HEMATOLOGY METHOD 06/09/2025 3:49 PM EDT [facility] Blood Venous blood specimen / Unknown Venipuncture / Unknown 06/09/2025 1:39 PM EDT 06/09/2025 1:40 PM EDT us Phillip Clark MD LAB BLOOD ORDERABLES Final R esult [facility] [address] [place] [address] * Comprehensive Metabolic Panel, Plasma (06/09/2025 1:39 PM EDT) Glucose, Plasma 86 74 - 99 mg/dL 06/09/2025 3:57 PM EDT [facility] BUN, Plasma 15 8 - 23 mg/dL 06/09/2025 3:57 PM EDT [facility] Creatinine, Plasma 0.85 0.70 - 1.20 mg/dL 06/09/2025 3:57 PM EDT [facility] BUN/Creatinine Ratio 18 06/09/2025 3:57 PM EDT [facility] Sodium, Plasma 139 136 - 145 mmol/L 06/09/2025 3:57 PM EDT [facility] Potassium, Plasma 4.7 3.6 - 4.9 mmol/L 06/09/2025 3:57 PM EDT [facility] Chloride, Plasma 107 97 - 107 mmol/L 06/09/2025 3:57 PM EDT [facility] CO2, Plasma 24 22 - 29 mmol/L 06/09/2025 3:57 PM EDT [facility] Anion Gap 8 6 - 16 mmol/L 06/09/2025 3:57 PM EDT [facility] Total Calcium, Plasma 9.0 8.9 - 10.2 mg/dL 06/09/2025 3:57 PM EDT [facility] Total Protein 6.6 6.3 - 7.9 g/dL 06/09/2025 3:57 PM EDT [facility] Albumin, Plasma 4.2 3.5 - 5.2 g/dL 06/09/2025 3:57 PM EDT [facility] AST, Plasma 23 10 - 50 U/L 06/09/2025 3:57 PM EDT [facility] ALT, Plasma 23 10 - 50 U/L 06/09/2025 3:57 PM EDT [facility] Alkaline Phosphatase, Plasma 66 40 - 115 U/L 06/09/2025 3:57 PM EDT [facility] Total Bilirubin, Plasma 0.8 0.2 - 1.1 mg/dL 06/09/2025 3:57 PM EDT [facility] eGFRcr 94.1 mL/min/1.7 3m*2 06/09/2025 3:57 PM EDT [facility] Comment:Reported eGFRcr in m L/min/1.73m2 is based the CKD-EPI 2020 equation that does not use a race coefficient. Blood Venous blood specimen / Unknown Venipuncture / Unknown 06/09/2025 1:39 PM EDT 06/09/2025 1:40 PM EDT us Phillip Clark MD LAB BLOOD ORDERABLES Final R esult [facility] [address] [place] [address] * (ABNORMAL) Hemoglobin A1c (06/09/2025 1:39 PM EDT) Hemoglobin A1c 5.7(H) <5.7 % 06/09/2025 6:09 PM EDT [facility] Blood Venous blood specimen / Unknown Venipuncture / Unknown 06/09/2025 1:39 PM EDT 06/09/2025 1:40 PM EDT Narrative [facility] - 06/09/2025 6:09 PM EDT HA1C Interpretive Data: Diagnosis of Diabetes: Diabetic > or = 6.5% Pre-diabetic 5.7 to 6.4% Non-diabetic < or = 5.6% Glycemic Targets for Type I and Type II Diabetics: Non- Adults <7.0% Adults <6.0% Children and Adolescents <7.5% Source: [place] [employer]. Standards of medical care in diabetes,2017. Diabetes Care.2017:40 (suppl 1):S1-S135. Phillip Clark MD LAB BLOOD ORDERABLES Final R esult Performing Organization Address City/[facility] Co de Phone Number [facility] [address] [place] [address] * Protime-INR (06/09/2025 1:39 PM EDT) Prothrombin Time 13.6 12.0 - 14.3 sec LAB COAGULATION METHOD 06/09/2025 3:58 PM EDT [facility] INR 1.0 0.9 - 1.1 LAB COAGULATION METHOD 06/09/2025 3:58 PM EDT [facility] Blood Venous blood specimen / Unknown Venipuncture / Unknown 06/09/2025 1:39 PM EDT 06/09/2025 1:40 PM EDT Narrative [facility] - 06/09/2025 3:58 PM EDT OPTIMAL INR RANGES FOR PATIENT ON ORAL ANTICOAGULANT THERAPY Prevention of venous thromboembolism INR 2.0 to 3.0 In patients with heart disease: Atrial fibrillation INR 2.0 to 3.0 Valvular heart disease INR 2.0 to 3.0 Tissue heart valves INR 2.0 to 3.0 Mechanical prosthetic valves INR 2.5 to 3.5 Prevention of recurrent ID INR 2.5 to 3.5 Phillip Clark MD LAB BLOOD ORDERABLES Final R esult Performing Organization Address [facility] [place] [address] * APTT (06/09/2025 1:39 PM EDT) aPTT 33 25 - 35 sec LAB COAGULATION METHOD 06/09/2025 3:[address] [facility] Blood Venous blood specimen / Unknown Venipuncture / Unknown 06/09/2025 1:39 PM EDT 06/09/2025 1:40 PM EDT Phillip Clark MD LAB BLOOD ORDERABLES Final R esult Performing Organization Address City/[facility] Co de Phone Number [facility] [address] [place] [address] * Type & Screen, 30 Days (06/09/2025 [...] ORDERABL ES Final Result BLOOD BANK [address] documented in this encounter Visit Diagnoses Diagnosis Severe aortic regurgitation- Primary Severe aortic regurgitation documented in this encounter Additional Health Concerns Assessment Noted Time A fall risk assessment has been complete d for the patient 06/09/2025 12:15 PM EDT A Body Mass Index follow-up plan has been documented for the patient 06/09/2025 2:00 PM EDT documented as of this encounter Care Teams Laundry Presser Relationship Specialty Start Date End Date Kamran Singh MD [id number] PCP - General 02/28/25 documented as of this encounter
--- OUTSIDE RECORDS SUMMARY | 2025-06-09 12:42 | XMS_ITS | Encounter Summary ---
Author Organization [facility] Address [address] [place] [id number] Care Team Providers Care Tent Finisher Name Role Phone Kamran Singh MD Primary Care Provider [phone] Encounter Details Date Type Department Care Team (Latest Contact Info) Description 06/09/2025 1:42 PM EDT - 06/09/2025 11:59 PM EDT [facility] Encounter [facility] [address], [address] [place] [phone] Severe aortic regurgitation Discharge Disposition: Home or Self Care Social [...] any time in the past 12 m [facility], were you homeless or living in a m[facility] (including now)? No 06/15/2025 [facility] Utilities Answer Date Recorded In the [...] tablet Take 2 tablets by mouth every 4 hours as needed for pain, headaches or fever. 100 tablet 06/20/2025 empagliflozin (Jardiance) 10 MG Take 1 tablet by mouth daily. 30 tablet 2 06/20/2025 09/18/19 26 ezetimibe (Zetia) 10 MG tablet Take 1 tablet by mouth daily. 30 tablet 2 06/20/2025 09/18/19 26 furosemide (Lasix) 40 MG tablet Take 1 tablet by mouth daily. Take Lasix (furosemide) 40mg once daily for 3 days only; to be taken with potassium 20mEq once daily for 3 days only. 3 tablet 06/20/2025 losartan (Cozaar) 50 MG tablet Take 0.5 tablets by mouth 2 times a day. 60 tablet 2 06/20/2025 12/18/19 26 methocarbamol (Robaxin) 500 MG tablet Take 1 tablet by mouth 4 times a day as needed for muscle spasms. 40 tablet 06/20/2025 metoprolol tartrate (Lopressor) 50 MG tablet Take 1 tablet by mouth 2 times a day. 60 tablet 2 06/20/2025 09/18/19 26 omeprazole (PriLOSEC) [address] capsule Take 1 capsule by mouth daily as needed. Do not crush or chew. oxyCODONE (Roxicodone) 5 MG immediate release tablet Take 1 tablet by mouth every 4 hours as needed for moderate pain. 18 tablet 06/20/2025 Repatha SureClick 140 MG/ML solution auto-injector autoinjector Inject 1 mL under the skin every 14 days. 02/26/2025 rosuvastatin (Crestor) 40 MG tablet Take 1 tablet by mouth daily. 30 tablet 2 06/20/2025 09/18/19 26 spironolactone (Aldactone) 25 MG tablet Take 1 tablet by mouth daily. holding 06/20/2025 warfarin (Coumadin) 2 MG tablet Take 2 tablets by mouth daily. 4mg daily until you get your INR drawn on Jun 22, then as directed. 60 tablet 11 06/20/2025 clopidogrel (Plavix) 75 MG tablet Take 1 tablet by mouth daily. 30 tablet 06/20/2025 07/20/20 25 docusate sodium (Colace) 100 MG capsule Take 1 capsule by mouth 2 times a day for 10 days. Hold for loose stool 20 capsule 06/20/2025 06/30/20 25 potassium chloride CR (Klor-Con M20) 20 MEQ ER tablet Take 1 tablet by mouth daily for 3 days. Do not crush or chew. Take for 3 days only; to be taken with Lasix (furosemide) 40mg once daily for 3 days only. 3 tablet 06/20/2025 06/23/20 25 senna (Senokot) 8.6 MG tablet Take 2 tablets by mouth nightly for 10 days. Hold for loose stools 20 tablet 06/20/2025 06/30/20 acetaminophen (Tylenol) 325 MG tablet Take 2 tablets by mouth every morning. Under [place] law, monthly prescriptions (30 days) can be refilled at 25 days and three-month prescriptions (90 days) at 80 days. Please contact the insurance company with questions if refills are denied. 06/20/20 ASPIRIN 81 MG chewable tablet Chew 1 tablet daily. 06/20/20 atenolol (Tenormin) 25 MG tablet Take 1 tablet by mouth daily. 06/20/20 clopidogrel (Plavix) 75 MG tablet Take 1 tablet by mouth daily. 03/23/2025 06/20/20 empagliflozin (Jardiance) 10 MG Take 1 tablet by mouth daily. 06/20/20 ezetimibe (Zetia) 10 MG tablet Take 1 tablet by mouth daily. 06/20/20 ibuprofen 200 MG tablet Take 1 tablet by mouth daily. 06/20/20 losartan (Cozaar) 50 MG tablet Take 0.5 tablets by mouth 2 times a day. 06/20/20 25 naloxone (Narcan) 4 mg/0.1 mL nasal spray 1. Give 1 spray in nostril for no/slow breathing or cannot wake after opioid use 2. Call 911 3. Repeat in other nostril if symptoms continue 1 each 06/20/2025 07/07/20 rosuvastatin (Crestor) 40 MG tablet Take 1 tablet by mouth daily. 06/20/20 spironolactone (Aldactone) 25 MG tablet Take 1 tablet by mouth daily. 06/20/20 25 documented as of this encounter Plan of Treatment Upcoming Encounters Date Type Department Care Team (Late st Contact Info) Description 07/20/2026 12:00 PM EST Appointment Cardiac Imaging [address] [place] [address] 07/20/2026 1:40 PM EST Office Visit [place] [facility] [address], [facility] [address] [place] [address] Phillip Clark MD [address] [place] [address] documented as of this encounter Procedures Procedure Name Priority Date/Time Associated Diagnosis Comments XR CHEST 2 VIEWS Routine 06/09/2025 1:53 PM EDT Severe aortic regurgitation documented in this encounter Results * XR Chest 2 [...] MD IMG XR PROCEDURES Final Resu lt documented in this encounter Visit Diagnoses Diagnosis Severe aortic regurgitation documented in this encounter Additional Health Concerns Assessment Noted Time A fall risk assessment has been complete d for the patient 06/09/2025 12:15 PM EDT A Body Mass Index follow-up plan has been documented for the patient 06/09/2025 2:00 PM EDT documented as of this encounter Care Teams Tent Finisher Relationship Specialty [place] [id number] PCP - General 02/28/25 documented as of this encounter
--- OUTSIDE RECORDS SUMMARY | 2025-06-14 04:18 | XMS_ITS | Encounter Summary ---
Author Organization [facility] Address [address] [id number] Care Team Providers Care Load Tester Name Role Phone Kamran Singh MD Primary Care Provider [phone] Reason for Referral * Consultation (Routine) - Authorized Specialty Diagnoses / Procedures Referred By Nathalia garcia Referred To Contact Cardiac Rehabilitation Diagnoses S/P AVR Phillip Clark MD [address] [address] Phone: tel: fax: Referral ID Status Reason Start Date Expiration Date V isits Requested Visits Authorized [id number] Authorized 06/20/2025 12/20/2026 1 1 Reason for Visit * Auth/Cert (Routine) Specialty Diagnoses / Procedures Referred By Nathalia garcia Referred To Contact Diagnoses Severe aortic regurgitation Severe aortic regurgitation [I35.1] Procedures AL -AORT GRF W/CARD BYP F/AORTIC DISSECTION AORTIC ROOT RECONSTRUCTION Phillip Clark MD [address] [address] Phone: tel: fax: P[facility] A OPERATING ROOM [address] [place] [address] Phone: tel: Referral ID Status Reason Start Date Expiration Date Visits Re quested Visits Authorized [id number] 1 1 Encounter Details Date Type Department Care Team (Latest Contact Info) Description 06/14/2025 5:18 AM EDT - 06/20/2025 2:25 PM EDT Hospital Encounter [facility] A Inpatient [address] [facility] [place] [address] Phillip Clark MD [address] [place] [address] Other secondary hypertension (Primary Dx); [...] in the past 12 m [facility], were you homeless or living in a half-way (including now)? No 06/15/2025 [facility] Utilities Answer Date Recorded In the [...] recent AVR. I/R/P: I met with Bradley Forrset to discuss outpatient cardiac rehab and the benefits of attending. Insurancecoverage discussed. Mr. Forrest is agreeable to a referral and prefers to attend at [facility]. [place] will contact Mr. Forrest to discuss and [...] 2. Eligibility: Heart valve surgery 3. Exceptions/exclusions: [facility] Cardiac Rehab Exclusions: None 4. Referral: [facility] Cardiac Rehab Referral: Patient agreed with referral to the cardiac rehabilitation program at [facility] in [place], [place], phone number [phone]. 5. Information sent: Information Sent: Appropriate information will be sent to the receiving cardiac rehabilitation program.: * Progress Notes - Oumou Berger - 06/20/2025 10:15 AM EDT Case Management Discharge Note Bradley Forrest 69 y.o. male CSN: [id number] Admission: 06/14/2025 5:18 AM Primary Problem: Aortic valve regurgitation Primary Travel Med Surg Rn: Primary Caregiver: Self Assistance Available at Discharge: Current Outpatient/Agency/Support Group: DME Availability of Care Givers (#Hours): Other (comment) (As needed) Family/Travel Med Surg Rn(s) Willingness Assessed to care for patient at home: Yes Family/Travel Med Surg Rn(s) Readiness Assessed to care for patient at [...] Recieved By: patient Follow-up: Jolynn Pollard APRN [facility] Cardiology [address] [place] [address] [address], [place] [address] Go on 08/22/2025 Your cardiology appointment is on August 22 at 11am Please arrive 15 minutes early and bring UPDATED medication list. [address] [facility] [id number] Go on 06/22/2025 Your first appointment for your Warfarin/Coumadin management is this FridayJune 22 at 11:30am. Please report to [facility] front admission desk and tell them you are checking in to the Pharmacy Anticoagulation Clinic. The communications clerk will call the pharmacist who will meet you in the lobby and escort you to the clinic. Please bring all medications you are taking and your insurance card. If you have any issues please call [phone] ext: [phone] and then choose option 2. Discharge Transportation: Transportation Anticipated: family or friend will provide Transportation Home at Discharge: Family/Friend will Provide Follow Up Transport: Transportation Needed to Follow up Appoinments: Family/Friend will Provide Additional Comments: SW spoke with primary team this date who indicate the pt is medically stable for DC this date and does not require further [facility]-based care. Pt to DC home with , to transport. Covering RNCM ordered rollator from [facility] to be delivered to bedside. No further [...] PCP name and Address: Kamran Singh MD [address] [place] [address] / [place] [address] Referring provider name and address: No referring [...] Your Medications These medications were sent to [facility] - [place], [place] - [address] [facility] [address] [facility] [place] [address] acetaminophen 325 MG tablet clopidogrel 75 MG [...] Center 07/07/2025 2:40 PM Phillip Clark MD [facility] Test Results Pending At Discharge N/A [...] Plan Anticoagulation Plan Warfarin Pharmacist Managed?: No [facility] Warfarin Dosing Protocol Followed?: No Reason for Protocol Departure: CT Surgery Bridging Agent in Conjunction With Warfarin? : No INR Monitoring Frequency: Monitor INR daily Patient Education : Complete and documented Warfarin dosing and adjustment per CT surgery provider. Transitions of Care Outpatient provider managing warfarin after [facility] discharge: TBD - possibly clinic Recommended date for outpatient INR assessment: TBD - of note, enoxparin copay $0 for 7 day supply Will continue to follow patient's clinical progress daily. Libia Stevenson PharmD, [facility] Clinical Pharmacist - Cardiothoracic Surgery Available via howsimple * Progress Notes - Phillip Clark MD [...] Patient Tolerance (IS): good Taken 06/17/20251999 by Lroi Molina RN Level Incentive Spirometer (mL): 1000 [...] Ongoing, Progressing Intervention: Promote Activity and Functional [place] Flowsheets (Taken 06/19/20251704 by Vicente Hussein RN) Activity Assistance Provided: assistance, stand-by Adaptive Equipment Use: use encouraged Self-Care Promotion: independence encouraged Problem: Self-Care Deficit Goal: Improved Ability to Complete Activities of Daily Living Outcome: Ongoing, Progressing Intervention: Promote Activity and Functional [place] Flowsheets (Taken 06/19/20251704 by Vicente Hussein, RN) Activity Assistance Provided: assistance, stand-by Adaptive Equipment Use: use encouraged Self-Care Promotion: independence encouraged Problem: Wound Goal: Optimal Coping Outcome: Ongoing, Progressing Intervention: Support Patient and Family Response Flowsheets (Taken 06/19/20251704 by Vicetne Hussein, RN) Supportive Measures: active listening utilized [...] presence promoted * Care Plan - Vicente Husesin RN - 06/19/2025 5:05 PM EDT Problem: [...] Vicente uHssein RN Outcome: Ongoing, Progressing Intervention: Monitor and [...] Ongoing, Progressing Intervention: Promote Activity and Functional [place] Flowsheets (Taken 06/19/20251704) Activity Assistance Provided: assistance, [...] HOB elevated Taken 06/19/2025 0345 by Lori Molina RN Pressure Reduction Techniques: [...] Ongoing, Progressing Intervention: Promote Activity and Functional [place] Flowsheets (Taken 06/19/20251704) Activity Assistance Provided: assistance, [...] Plan Anticoagulation Plan Warfarin Pharmacist Managed?: No [facility] Warfarin Dosing Protocol Followed?: No Reason for Protocol Departure: CT Surgery Bridging Agent in Conjunction With Warfarin? : No Goal PTT/anti-Xa: 2.5-3.5 INR Monitoring Frequency: Monitor INR daily Patient Education : Complete and documented Warfarin dosing and adjustment per CT surgery provider. Transitions of Care Outpatient provider managing warfarin after [facility] discharge: TBD - possibly clinic Recommended date [...] Ongoing, Progressing Intervention: Promote Activity and Functional [place] Flowsheets (Taken 06/19/2025344) Activity Assistance Provided: assistance, stand-by Self-Care Promotion: independence encouraged Problem: Self-Care Deficit Goal: Improved Ability to Complete Activities of Daily Living Outcome: Ongoing, Progressing Intervention: Promote Activity and Functional [place] Flowsheets (Taken 06/19/2025344) Activity Assistance Provided: assistance, [...] from the original note were not included. [id number] Tratamiento para contracciones ventriculares prematuras (CVP) Las [...] Confusi??n. Last Reviewed Date: 2024 00:00:00 ?? [id number] [employer]. All rights reserved. This information is not intended as a substitute for professional medical care. Always follow your healthcare professional's instructions. * Gabriel Singh - Brittaney Dumas RN - 06/18/2025 6:29 PM EDT Images from the original note were not included. [id number] C??mo comprender las contracciones ventriculares prematuras (CVP) [...] se??al activa partes cercanas del coraz??n contraer. Dewar permite que el coraz??n se comprima de [...] card??acos anteriores, el coraz??n expulsar?? muypoca mushtaq. Dewar provoca aria sensaci??n de pausa entre latidos. El siguiente latido card??aco suele ser m??s bea, ya que la pausa lo permite que el coraz??n descanse y se llene de mushtaq. Dewar lleva a aria sensaci??n de latido card??aco [...] port??til jameson unos d??as o incluso semanas. Dewar puede ayudar a diagnosticar los CVP que [...] im??genes del coraz??n. ? An??lisis de mushtaq. Dewar se hace para comprobar los electrolitos y concentraciones tiroideas. Last Reviewed Date: 2024 00:00:00 ?? [id number] [employer]. All rights reserved. This information is not intended as a substitute for professional medical care. Always follow your healthcare professional's instructions. * Gabriel Singh - Brittaney Dumas RN - 06/18/2025 6:29 PM EDT Images from the original note were not included. [id number] Tratamiento para contracciones ventriculares prematuras (CVP) Las [...] Confusi??n. Last Reviewed Date: 2024 00:00:00 ?? [id number] [employer]. All rights reserved. This information is not intended as a substitute for professional medical care. Always follow your healthcare professional's instructions. * Gabriel Singh - Brittaney Dumas RN - 06/18/2025 6:29 PM EDT Images from the original note were not included. [id number] C??mo comprender las contracciones ventriculares prematuras (CVP) [...] se??al activa partes cercanas del coraz??n contraer. Dewar permite que el coraz??n se comprima de [...] card??acos anteriores, el coraz??n expulsar?? muypoca mushtaq. Dewar provoca aria sensaci??n de pausa entre latidos. El siguiente latido card??aco suele ser m??s bea, ya que la pausa lo permite que el coraz??n descanse y se llene de mushtaq. Dewar lleva a aria sensaci??n de latido card??aco [...] port??til jameson unos d??as o incluso semanas. Dewar puede ayudar a diagnosticar los CVP que [...] im??genes del coraz??n. ? An??lisis de mushtaq. Dewar se hace para comprobar los electrolitos y concentraciones tiroideas. Last Reviewed Date: 2024 00:00:00 ?? 7006-9471 [employer]. All rights reserved. This information is not intended as a substitute for professional medical care. Always follow your healthcare professional's instructions. * Gabriel Singh - Brittaney Dumas RN - 06/18/2025 6:28 PM EDT Images from the original note were not included. 31352 Treatment for Premature Ventricular Contractions (PVCs) Premature [...] confusion Last Reviewed Date: 2024 00:00:00 ?? 1542-4333 [employer]. All rights reserved. This information is not intended as a substitute for professional medical care. Always follow your healthcare professional's instructions. * Gabriel Singh - Brittaney Dumas RN - 06/18/2025 6:28 PM EDT Images from the original note were not included. 57638 Understanding Premature Ventricular Contractions (PVCs) Premature ventricular [...] 2 weeks. ? Insertable (or implantable) cardiac cath tech. This small device is implanted under [...] levels. Last Reviewed Date: 2024 00:00:00 ?? 5607-5870 [employer]. All rights reserved. This information is not [...] Plan Anticoagulation Plan Warfarin Pharmacist Managed?: No [facility] Warfarin Dosing Protocol Followed?: No Bridging Agent in Conjunction With Warfarin? : Yes Ordered Agents: Enoxaparin Bridging Agent Dose: 70mg BID INR Monitoring Frequency: Monitor INR daily Patient Education : Complete and documented Warfarin dosing and adjustment per CT surgery provider. Transitions of Care Outpatient provider managing warfarin after [facility] discharge: TBD - possibly clinic Recommended date [...] Ongoing, Progressing Intervention: Promote Activity and Functional [place] Flowsheets (Taken 06/18/202558) Activity Assistance Provided: assistance, 1 person Self-Care Promotion: independence encouraged Problem: Self-Care Deficit Goal: Improved Ability to Complete Activities of Daily Living Outcome: Ongoing, Progressing Intervention: Promote Activity and Functional [place] Flowsheets (Taken 06/18/202558) Activity Assistance Provided: assistance, [...] from the original note were not included. [id number] Warfarin IMPORTANT WARNING: Warfarin may cause severe [...] doctor or pharmacist will give you the crts's patient information sheet (Medication Guide) when you begin treatment with warfarin and each time you refill your prescription. Read the information carefully and ask your doctor or pharmacist if you have any questions. You can also visit the Food and Drug Administration (FDA) website (https://www.fda.gov/downloads/Drugs/DrugSafety/fak360742.pdf) or the crts's website to obtain the Medication Guide. Talk [...] Echinacea, garlic, Ginkgo biloba, ginseng, goldenseal, and Cando's wort; omeprazole (Prilosec); famotidine (Pepcid AC); aspirin [...] amounts of vitamin K-containing food on a pbmm-kh-qvhn basis. Do not eat large amounts of [...] of all of the prescription and nonprescription (itqy-tbb-uuxmpgv) medicines, vitamins, minerals, and dietary supplements you [...] or pharmacist about specific clinical use. The [place] [employer] represents that the information provided hereunder was formulated with a reasonable standard of care, and in conformity with professional standards in the field. The [place] [employer] makes no representations or warranties, express or implied, including, but not limited to, any implied warranty of merchantability and/or fitness for a particular purpose, with respect to such information and specifically disclaims all such warranties. Users are advised that decisions regarding drug therapy are complex medical decisions requiring the independent, informed decision of an appropriate health physician assistant primary care, and the information is provided for informational purposes only. The entire monograph for a drug should be reviewed for a thorough understanding of the drug's actions, uses and side effects. The [place] [employer] does not endorse or recommend the use of any drug.The information is not a substitute for medical care. AHFS?? Patient Medication Information?. ?? Copyright, 2023. The [place] [employer]??, [address], [address], [place], [place]. All Rights Reserved. Duplication for commercial use must be authorized by [facility]. Selected Revisions: February 13, 2017. AHFS?? Patient Medication Information?. ?? Copyright, 2024 * Gabriel Baldwin - Sydni Munson RN - 06/17/2025 12:42 PM EDT Images from the original note were not included. 54383 Recovery From Heart Surgery: The First Few [...] stop Last Reviewed Date: 2024 00:00:00 ?? 7686-1565 [employer]. All rights reserved. This information is not [...] from the original note were not included. 98702 After Heart Valve Surgery For the first [...] headache Last Reviewed Date: 2023 00:00:00 ?? [id number] [employer]. All rights reserved. This information is not intended as a substitute for professional medical care. Always follow your healthcare professional's instructions. * Discharge Instr - Other Orders - Sydni Munson RN - 06/17/2025 12:39 PM EDT Please arrive 30 minutes early for your appointment with Dr. Clark Prior to your appointment, go to the radiology department on the 1st floor of the [facility] near [facility] for a chest x-ray. Then go [...] your incisions. Do NOT lift, push, or slab puller 5 pounds for six weeks. Do [...] Sydni Munson CT Surgery Nurse Navigator at [phone] Friday through Friday 7am- 3:30pm [facility] [phone] after 3:30 pm, weekends and holidays - ask for the CT surgeon manager animation. * Progress Notes - Brooke Valdez PTA - 06/17/2025 11:58 AM EDT Physical Therapy Treatment Patient Name: Bradley Forrest Today's Date: 06/17/2025 Total Treatment Time: 39 min PT Discharge Recommendations: Home with assistance Equipment Recommended: Rollator Subjective The patient states, I am doing okay. Participants in Care Family/Caregiver Present: Yes Family/Caregiver: Spouse, Other (Specify) (sister and brother) Agricultural Crop Farm Manager: Not Applicable Presentation Oxygen: None (Room air) [...] sequencing. Bed Mobility Exam: Rolling/Turning Level of [place]: Minimum assist (75% patient effort) Physical/Nonphysical Assist: Verbal Cues, Set-up required Bed Mobility Exam: Scooting/Bridging Level of [place]: Minimum assist (75% patient's effort) (to scoot to edge of bed with cues to adhere to sternal precautions) Physical/Nonphysical Assist: Verbal Cues, Set-up required Bed Mobility Exam: Supine to Sit Level of [place]: Minimum assist (75% patient's effort) Physical/Nonphysical Assist: Verbal Cues, Set-up required, Additional assist utilized for safety Bed Mobility Exam: Sit to Supine Level of [place]: Minimum assist (75% patient's effort) Physical/Nonphysical Assist: Verbal Cues, Set-up required, Additional assist utilized for safety Transfers Transfer Intervention: Verbal cues provided for correct bilateral hand and foot placement during sit to stand transfers. Transfer Interventions: The patient stood at the sink for hygiene approximately 8-10 minutes with CGA of 1 person. 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 Level of [place] Adaptive Equipment Utilized Comments Feeding Grooming SBA Standing sinkside stood times 8 minutes in bathroom. Bathing Upper Body Dressing Lower Body Dressing Sock Level of Assistance: Moderate assistance, Minimal verbal cues Toileting SBA Toilet IADLs Health Management Community Re-Entry BALANCE Postural Appearance INTERVENTIONS Level of [place] Balance Support Comments Static Sit Standby assist [...] weight shifting to promote safety. Level of [place] Physical/Non-physical Assist Adaptive Equipment Utilized Rolling/ Turning [...] Plan Anticoagulation Plan Warfarin Pharmacist Managed?: No [facility] Warfarin Dosing Protocol Followed?: No Bridging Agent in Conjunction With Warfarin? : Yes Ordered Agents: Enoxaparin Bridging Agent Dose: 70mg BID INR Monitoring Frequency: Monitor INR daily Patient Education : Complete and documented Warfarin dosing and adjustment per CT surgery provider. Transitions of Care Outpatient provider managing warfarin after [facility] discharge: TBD - possibly clinic Recommended date [...] the video go to this web address: https://bit.ly/[email or web address] Or, scan this QR code with your smart phone ?? [facility] * Maria Esther Houston PharmD - 06/17/2025 9:21 AM EDT Images from the original note were not included. Warfarin: Your INR Goal - Video Understand what the INR test measures, and what your healthy INR level should be. To view the video go to this web address: https://bit.ly/9Sey8MW Or, scan this QR code with your [...] the video go to this web address: https://bit.ly/[email or web address] Or, scan this QR code with your [...] Certain other vegetables and fruits, including asparagus, [place] sprouts, and kiwifruit ? Certain soy products, such as natto (a traditional Samoan dish of fermented soybeans) Some vegetable oils [...] reduced-fat cheese, served with a whole grain Syriac muffin ? A grilled chicken sandwich on whole grain bread with raw spinach*, tomato slices, and mustard ? Oven-roasted fish served with steamed broccoli* and medley of whole grain pasta, carrots, onions,and mushrooms * Foods higher in vitamin K Last Reviewed Date: 2025 00:00:00 ?? 7747-8497 [employer]. All rights reserved. This information is not [...] the video go to this web address: [email or web address] Or, scan this QR code with your [...] the video go to this web address: [email or web address] Or, scan this QR code with your smart phone ?? [facility] * Maria Esther Houston PharmD - 06/17/2025 9:21 AM EDT Images from the original note were not included. Warfarin and Food - Video Learn which foods can affect how your warfarin therapy is working. To view the video go to this web address: [email or web address] Or, scan this QR code with your smart phone ?? [facility] * Gabriel OnFHIR - Maria Esther Kent PharmD - 06/17/2025 9:21 AM EDT Images from the original note were not included. [id number] Warfarin IMPORTANT WARNING: Warfarin may cause severe [...] doctor or pharmacist will give you the crts's patient information sheet (Medication Guide) when you begin treatment with warfarin and each time you refill your prescription. Read the information carefully and ask your doctor or pharmacist if you have any questions. You can also visit the Food and Drug Administration (FDA) website (https://www.fda.gov/downloads/Drugs/DrugSafety/cvw204241.pdf) or the crts's website to obtain the Medication Guide. Talk [...] Echinacea, garlic, Ginkgo biloba, ginseng, goldenseal, and Cando's wort; omeprazole (Prilosec); famotidine (Pepcid AC); aspirin [...] amounts of vitamin K-containing food on a odua-ik-qaug basis. Do not eat large amounts of [...] be awakened, immediately call emergency services at 211. Symptoms of overdose may include the following: [...] of all of the prescription and nonprescription (jref-yiy-givjuww) medicines, vitamins, minerals, and dietary supplements you [...] or pharmacist about specific clinical use. The [place] [employer] represents that the information provided hereunder was formulated with a reasonable standard of care, and in conformity with professional standards in the field. The [place] [employer] makes no representations or warranties, express or implied, including, but not limited to, any implied warranty of merchantability and/or fitness for a particular purpose, with respect to such information and specifically disclaims all such warranties. Users are advised that decisions regarding drug therapy are complex medical decisions requiring the independent, informed decision of an appropriate health physician assistant primary care, and the information is provided for informational purposes only. The entire monograph for a drug should be reviewed for a thorough understanding of the drug's actions, uses and side effects. The [employer] [place] [employer] does not endorse or recommend the use of any drug.The information is not a substitute for medical care. AHFS?? Patient Medication Information?. ?? Copyright, 2023. The [place]??, [address], [address], [place], [place]. All Rights Reserved. Duplication for commercial use must be authorized by [facility]. Selected Revisions: February 13, 2017. AHFS?? Patient [...] Ongoing, Progressing Intervention: Promote Activity and Functional [place] Flowsheets (Taken 06/17/2025108) Activity Assistance Provided: assistance, 1 person Self-Care Promotion: independence encouraged Problem: Self-Care Deficit Goal: Improved Ability to Complete Activities of Daily Living Outcome: Ongoing, Progressing Intervention: Promote Activity and Functional [place] Flowsheets (Taken 06/17/2025108) Activity Assistance Provided: assistance, [...] Oxygenation and Ventilation 06/16/2025 152 by Fariba Blantno RN Outcome: Ongoing, Progressing 06/16/2025 152 by Fariba lBanton RN Outcome: Ongoing, Not Progressing Problem: Fall [...] Note Bradley Forrest 69 y.o. male CSN: [id number] Admission: 06/14/2025 5:18 AM Primary Problem: Severe [...] Problem(s): Weaning from mechanically assisted ventilation initiated ([facility]) (Isxfkcno31/20/2025) Arrived intubated and sedated post-op - fast [...] Edited by: Tello Spann MD at 06/16/2025 0917 Lines/Drains/Tubes: Patient Lines/Drains/Airways Status Active Active LDAs Name Placement date Placement time Site Days CVC Double Lumen 06/14/25 Right Internal jugular 06/14/25 0832 Internal jugular 2 Peripheral IV 06/14/25 Posterior;Right Hand 06/14/25 0620 Hand 2 Chest Tube Mediastinal 36 Fr 06/14/25 1327 Mediastinal 1 Urethral Catheter Temperature probe 16 Fr. 06/14/25 0822 -- 2 Arterial Line 06/14/25 Brachial 06/14/25 0808 Brachial 2 GCS: Amanda Coma Scale Score: 15 Review [...] post median sternotomy. Interval removal of the [place]-Ganzcatheter, right IJ sheath remains in place with tip in the mid to distal SVC. No pneumothorax or pleural effusions. Ongoing interstitial edema. 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 Agricultural Crop Farm Manager (if applicable) OBJECTIVE & INTERVENTIONS PAIN Pain [...] ACTIVITY Treatment Minutes 24 TRANSFERS Level of [place] Physical/Non- physical Assist Adaptive Equipment Utilized Sit to Stand Contact guard Verbal Cues, Additional assist utilized for safety, 1 person + 1 person to manage equipment (verbal cuing for sternal precautions) Stand to sit Contact guard Verbal Cues, 1 person + 1 person to manage equipment Interventions BALANCE Postural Appearance Posture: Rounded shoulders Level of [place] Balance Support Interventions Static Sit Standby assist Feet supported Dynamic Sit Contact guard Feet supported Static Stand Standby assist Right upper extremity support, Left upper extremity support Pt with mild dizziness when coming to stand from sitting which subsided with roughly 30 seconds of static standing Dynamic Stand Standby assist Right upper extremity support, Left upper extremity support AMBULATION Level of [place] Distance Adaptive Equipment Utilized Ambulation Standby assist, [...] Plan Anticoagulation Plan Warfarin Pharmacist Managed?: No [facility] Warfarin Dosing Protocol Followed?: No Reason for Protocol Departure: CT Surgery Bridging Agent in Conjunction With Warfarin? : Yes Ordered Agents: Enoxaparin Bridging Agent Dose: Enoxaparin 70mg bid to start 10 pm INR Monitoring Frequency: Monitor INR daily Patient Education : Incomplete Warfarin dosing and adjustment per CT surgery provider. Transitions of Care Outpatient provider managing warfarin after [facility] discharge: TBD Recommended date for outpatient INR assessment: TBD Will continue to follow patient's clinical progress daily. Sy Fernández PharmD PGY-2 Cardiology Public Accountant Available via Secure Chat * Progress Notes [...] Ongoing, Progressing Intervention: Promote Activity and Functional [place] Flowsheets Taken 06/15/20251699 by Bony Thomas RN [...] Ongoing, Progressing Intervention: Promote Activity and Functional [place] Flowsheets Taken 06/15/2025 1700 by Bony Thomas RN Activity Assistance Provided: assistance, stand-by Taken 06/14/20252154 by Svetlana Reilly RN Self-Care Promotion: independence encouraged * Consults - Nat Singletary RD - 06/15/2025 2:23 PM EDTAssociated Order(s): IP CONSULT TO NUTRITION SERVICES Adult Nutrition Evaluation Note Bradley Forrest 69 y.o. male CSN: [id number] Room/Bed 234/234A Nutrition evaluation type: assessment Reason [...] Supplemental oxygen O2 Delivery Method: Nasal cannula [place] Coma Scale Score: 15 Keny Scale Score: 21 Shahid/Cubbin Pressure Risk Score: 38 Most Recent BM Date: (MANAGER OF DISTRIBUTION) GI Symptoms: Nausea, Vomiting Edema: Generalized Allergies: [...] 30.07 Weight Evaluation: Obese-Class 1 (BMI 30-34.9) [place] Body Weight (kg): 67.3 Percent [place] Body Weight: 130 Adjusted Body Weight (kg): 72.4 Estimated Needs: Kcal/ K-28 Kcal Provided: 9045-1887 Metabolic Cart Study Results: Current Nutrition Intake: Diet Order: Adult Diet Diet Texture: Clear liquid Adult Carbohydrate Restriction: Consistent CHO 2 (6919-3627 Venkat, 80 g/meal) Fat Restriction: Cardiac Percent Meals Eaten (%): establishing Diet Experience and Nutrition History: Diet Education Provided: Will monitor Pertinent home medications: Congregational needs: Nutrition Focused Physical Exam: Physical exam performed on (date): 06/15 [place] (muscles): None Clavicle (muscle): None Shoulder (muscle): None Orbital (fat): None Triceps (fat): None Energy Intake: reported adequate MANAGER OF DISTRIBUTION Weight Loss: denies Assessment of Malnutrition: Malnutrition [...] Note Bradley Forrest 69 y.o. male CSN: [id number] Admission: 06/14/2025 5:18 AM Primary Problem: Severe aortic regurgitation Carpet Inspector reviewed chart and spoke with the patient at bedside to complete this Initial Case Management Assessment. PCP: Kamran Singh MD Emergency Contact: Extended Emergency Contact Information Primary Emergency Contact: Naheed Forrest Address: [address] [place] [address] JITENDRA [address] [place] [address] of [facility] Mobile Relation: Spouse Insurance: Primary Visit Coverage Payer Plan Sponsor Code Group Number Group Name MARY HERNANDEZ [facility] [id number] Primary Visit Coverage Subscriber Subscriber ID Subscriber Name Subscriber SSN Subscriber Address [id number] Bradley Forrest [id number] [place] [address] JITENDRA Clar[facility] Secondary Visit Coverage Payer Plan Sponsor Code Group Number Group Name MEDICARE MEDICARE A & B Secondary Visit Coverage Subscriber Subscriber ID Subscriber Name Subscriber N Subscriber Address [id number] Bradley Forrest [id number] [place] [address] JITENDRA Claros [facility] Patient information: Primary Caregiver: Self Support System: Immediate family Daily Living Activities: Functional Status: Independent Living Arrangements: Spouse/Significant other Type of Residence: Private residence, Single Level [address] [place] [address] Current DME: Equipment Currently Used at Home: [...] DME Provider: n/a Living Will/Advance Directive/Power of Component Inspector /Guardian: Unable to assess: No Have you [...] prior HH/O2/HD/Abx. PCP is Kamran Singh. Has [email or web address] insurance and uses [facility]. Family to transport and assist as [...] Plan Anticoagulation Plan Warfarin Pharmacist Managed?: No [facility] Warfarin Dosing Protocol Followed?: No Reason for [...] progress daily. Sy Fernández PharmD PGY-2 Cardiology Public Accountant Available via Secure Chat * Assessment & [...] Problem(s): Weaning from mechanically assisted ventilation initiated ([facility]) (Evkjazga01/20/2025) Arrived intubated and sedated post-op - fast [...] Weaning from mechanically assisted ventilation initiated (CMS/HCC) (Riuzafov77/20/2025) Arrived intubated and sedated post-op - fast [...] 06/15/2025 Weaning from mechanically assisted ventilation initiated ([facility]) 06/14/2025 Diabetes 05/05/2025 Benign prostatic hyperplasia 05/05/2025 CAD (coronary artery disease) 04/14/2025 History of coronary angioplasty with insertion of stent 04/14/2025 Ascending aortic aneurysm ([facility]) 04/14/2025 Aortic valve regurgitation 04/14/2025 BMI 30.0-30.9,adult [...] 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) Level of Mobility: Ambulatory- community Mobility [place]: Independent gait without device History of Falls: [...] Mobility Exam: Sit to Supine Level of [place]: Maximum assist (25% patient's effort) Physical/Nonphysical Assist: Verbal Cues, Maximal cues, Additional assist utilized for safety Transfers Transfer Exam: Sit to stand Level of [place]: Moderate assist (50% patient's effort) Physical/Nonphysical Assist: Verbal Cues, Moderate cues, Additional assist utilized for safety Assistive Device: Rollator Transfer Exam: Stand to Sit Level of [place]: Minimum assist (75% patient's effort) Physical/Nonphysical Assist: [...] activity. 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) Level of Mobility: Ambulatory- community Mobility [place]: Independent gait without device History of Falls: [...] Mobility Exam: Sit to Supine Level of [place]: Maximum assist (25% patient's effort) Physical/Nonphysical Assist: Verbal Cues, Maximal cues, Additional assist utilized for safety Transfers Transfer Exam: Sit to stand Level of [place]: Moderate assist (50% patient's effort) Physical/Nonphysical Assist: Verbal Cues, Moderate cues, Additional assist utilized for safety Assistive Device: Rollator Transfer Exam: Stand to Sit Level of [place]: Minimum assist (75% patient's effort) Physical/Nonphysical Assist: [...] continued education to improve carryover. Standardized Assessments [facility] 6-Click Daily Activities Help from Other: Don/Doff Regular Lower Body Clothings: A lot Help From Other: Bathing: A lot Help From Other: Toileting: A lot Help From Other: Don/Doff Upper Body Clothings: Little Help From Other: Grooming: Little Help From Other: Eating Meals: None [facility] 6 Click - Daily Activities Score: 16 [...] of NG tube. Right internal jugular approach [place]-Shira catheter and mediastinal drain in unchanged position. [...] * Assessment & Plan Note - Andres Nravaez MD - 06/15/2025 12:23 AM EDTAssociated Problem(s): [...] Problem(s): Weaning from mechanically assisted ventilation initiated ([facility]) (Hnjgzewb14/20/2025) Arrived intubated and sedated post-op - fast [...] for analgesia prior to leaving the OR. [facility] services were consulted for management of this [...] pressure support /5 Edited by: Balta Washington, SENIOR TECHNICAL TRAINER, DNP at 06/14/2025 2253 Lines/Drains/Tubes: Patient Lines/Drains/Airways [...] Ongoing, Progressing Intervention: Promote Activity and Functional [place] Flowsheets (Taken 06/14/20252154) Activity Assistance Provided: assistance, [...] Problem(s): Weaning from mechanically assisted ventilation initiated ([facility]) (Hurdgwtm91/20/2025) Arrived intubated and sedated post-op - fast [...] for analgesia prior to leaving the OR. [facility] services were consulted for management of this [...] 06/14/25 1327 Mediastinal less than 1 NG/OG [place] Sump Orogastric 18 Fr Center mouth 06/14/25 [...] OTHER SURGICAL HISTORY N/A Knee arthroscopy from [facility] SHOULDER SURGERY Right [3] No current facility-administered medications on file prior to encounter. Current Outpatient Medications on File Prior to Encounter Medication Sig Dispense Refill acetaminophen (Tylenol) 325 MG tablet Take 2 tablets by mouth every morning. Under [place] law, monthly prescriptions (30 days) can be refilled at 25 days and three-month prescriptions (90 days) at 80 days. Please contact the insurance company with questions if refills are denied. (Patient taking differently: Take 2 tablets by mouth every 4 hours as needed. Under [place] law, monthly prescriptions (30 days) can be [...] Saint Jose mechanical prosthesis. Date: 06/14/25 Location: [facility] Name: Bradley Forrest, : 1955, Diagnoses: Pre-op Diagnosis Severe aortic regurgitation Post-op Diagnosis Severe aortic regurgitation Coronary artery disease due to calcified coronary lesion History of coronary angioplasty with insertion of stent Left ventricular enlargement Procedure(s): Median sternotomy, aortic valve replacement using a 25 mm [place] mechanical prosthesis. Attending Surgeon(s): * Phillip Clark - Primary Skip Miner(s): * Turner Pablo MD - Fellow Anesthesia: General ASA: IV Blood Administration: Blood Product Administration History None Estimated Blood Loss: 150 mL Drains: Chest Tube Mediastinal 36 Fr (Active) Function -20 cm H2O 06/14/25 1600 Chest Tube Air Leak No 06/14/25 1600 Patency Intervention Tip/tilt 06/14/25 1600 Drainage Description Dark red 06/14/25 1600 NG/OG [place] Sump Orogastric 18 Fr Center mouth (Active) Urethral Catheter Temperature probe 16 Fr. (Active) Implants Type Name Action Serial No. GRAFT PTCH [id number] FELT - [id number] Implanted VALVE ATRIAL 25MM ROTATABL CUF STD PTFE - [id number] - [id number] Implanted [id number] Specimen: Specimens ID Source Frozen? 1 Heart [...] stenting of his coronaries. In addition his rod cup filler, Jd Duvall, had done an echocardiogram which [...] was induced, monitoring lines were placed, a [place]-Shira catheter was floated into position and a [...] Prolene and a tack seal. One 36 [place] chest tube was placed. Chest tubes and pacing wires were secured to the anterior abdominal wall. The sternum was reapproximated with #7 noujum-ve-jvrya stainless steel wires, the fasciawas closed with [...] 2 tablets by mouth every morning. Under [place] law, monthly prescriptions (30 days) can be refilled at 25 days and three-month prescriptions (90 days) at 80 days. Please contact the insurance company with questions if refills are denied. Patient taking differently: Take 2 tablets by mouth every 4 hours as needed. Under [place] law, monthly prescriptions (30 days) can be [...] PM EST Appointment Cardiac Imaging [address] [place] [address] 07/20/2026 1:40 PM EST Office Visit [facility] [address], [address] [place] [address] Phillip Clark MD [address] [place] [address] Pending Results Name Type Priority Associated Diagnoses [...] PANEL, PLASMA Routine 06/16/2025 5:35 PM EDT [facility], E/M 30-74 MINUTES Routine 06/16/2025 [...] PEP THERAPY Routine 06/15/2025 12:00 PM EDT AL CRITICAL CARE, E/M 30-74 MINUTES Routine 06/15/2025 [...] 1 VIEW Routine 06/15/2025 2:53 AM EDT [facility], ADDL 30 MIN Routine 06/15/2025 12:21 AM EDT Other secondary hypertension [facility], ADDL 30 MIN Routine 06/15/2025 [...] PANEL, ARTERIAL Routine 06/14/2025 6:47 PM EDT [facility], E/M 30-74 MINUTES Routine 06/14/2025 [...] UNSOLICITED RESULTS Routine 06/14/2025 8:13 AM EDT AL -AORT GRF W/CARD BYP F/AORTIC DISSECTION 06/14/2025 [...] - 99 mg/dL 06/20/2025 2:47 AM EDT [facility] BUN, Plasma 22 8 - 23 mg/dL 06/20/2025 2:47 AM EDT [facility] Creatinine, Plasma 0.85 0.70 - 1.20 mg/dL 06/20/2025 2:47 AM EDT [facility] BUN/Creatinine Ratio 26 06/20/2025 2:47 AM EDT [facility] Sodium, Plasma 131(L) 136 - 145 mmol/L 06/20/2025 2:47 AM EDT [facility] Potassium, Plasma 4.0 3.6 - 4.9 mmol/L 06/20/2025 2:47 AM EDT [facility] Chloride, Plasma 102 97 - 107 mmol/L 06/20/2025 2:47 AM EDT [facility] CO2, Plasma 24 22 - 29 mmol/L 06/20/2025 2:47 AM EDT [facility] Anion Gap 5(L) 6 - 16 mmol/L 06/20/2025 2:47 AM EDT [facility] Total Calcium, Plasma 7.9(L) 8.9 - 10.2 mg/dL 06/20/2025 2:47 AM EDT [facility] eGFRcr 94.1 mL/min/1.7 3m*2 06/20/2025 2:47 AM EDT [facility] Comment:Reported eGFRcr in m L/min/1.73m2 is based the CKD-EPI 2020 equation that does not use a race coefficient. Blood Venous blood specimen / Unknown Venipuncture / Unknown 06/20/2025 1:52 AM EDT 06/20/2025 1:59 AM EDT us Phillip Clark MD LAB BLOOD ORDERABLES Final R esult [facility] [address] [place] [address] * Phosphorus (06/20/2025 1:52 AM EDT) Phosphorus, Plasma 2.8 2.5 - 4.5 mg/dL 06/20/2025 2:23 AM EDT [facility] Blood Venous blood specimen / Unknown Venipuncture / Unknown 06/20/2025 1:52 AM EDT 06/20/2025 1:59 AM EDT Phillip Clark MD LAB BLOOD ORDERABLES Final R esult Performing Organization Address City/[facility]/ZIP Co de Phone Number [facility] [address] [place] [address] * (ABNORMAL) Protime-INR (06/20/2025 1:52 AM EDT) Prothrombin Time 30.4(H) 12.0 - 14.3 sec LAB COAGULATION METHOD 06/20/2025 2:29 AM EDT [facility] INR 2.9(H) 0.9 - 1.1 LAB COAGULATION METHOD 06/20/2025 2:29 AM EDT [facility] Blood Venous blood specimen / Unknown Venipuncture / Unknown 06/20/2025 1:52 AM EDT 06/20/2025 1:59 AM EDT Narrative [facility] - 06/20/2025 2:29 AM EDT OPTIMAL INR RANGES FOR PATIENT ON ORAL ANTICOAGULANT THERAPY Prevention of venous thromboembolism INR 2.0 to 3.0 In patients with heart disease: Atrial fibrillation INR 2.0 to 3.0 Valvular heart disease INR 2.0 to 3.0 Tissue heart valves INR 2.0 to 3.0 Mechanical prosthetic valves INR 2.5 to 3.5 Prevention of recurrent LA INR 2.5 to 3.5 us Phillip Clark MD LAB BLOOD ORDERABLES Final R esult [facility] [address] [place] [address] * Magnesium (06/20/2025 1:52 AM EDT) Magnesium, Plasma 2.2 1.9 - 2.4 mg/dL 06/20/2025 2:23 AM EDT [facility] Blood Venous blood specimen / Unknown Venipuncture / Unknown 06/20/2025 1:52 AM EDT 06/20/2025 1:59 AM EDT us Phillip Clark MD LAB BLOOD ORDERABLES Final R esult [facility] [address] [place] [address] * (ABNORMAL) CBC (06/20/2025 1:52 AM EDT) WBC Count 6.95 3.70 - 10.30 10*3/uL LAB HEMATOLOGY METHOD 06/20/2025 2:07 AM EDT [facility] RBC Count 3.73(L) 4.60 - 6.10 10*6/uL LAB HEMATOLOGY METHOD 06/20/2025 2:07 AM EDT [facility] HGB 10.4(L) 13.7 - 17.5 g/dL LAB HEMATOLOGY METHOD 06/20/2025 2:07 AM EDT [facility] HCT 31.9(L) 40.0 - 51.0 % LAB HEMATOLOGY METHOD 06/20/2025 2:07 AM EDT [facility] Platelet Count 187 155 - 369 10*3/uL LAB HEMATOLOGY METHOD 06/20/2025 2:07 AM EDT [facility] MCV 86 79 - 98 fL LAB HEMATOLOGY METHOD 06/20/2025 2:07 AM EDT [facility] MCH 27.9 26.0 - 32.0 pg LAB HEMATOLOGY METHOD 06/20/2025 2:07 AM EDT [facility] MCHC 32.6 30.7 - 35.5 g/dL LAB HEMATOLOGY METHOD 06/20/2025 2:07 AM EDT [facility] RDW 14.8(H) 11.5 - 14.5 % LAB HEMATOLOGY METHOD 06/20/2025 2:07 AM EDT [facility] MPV 10.2 8.8 - 12.5 fL LAB HEMATOLOGY METHOD 06/20/2025 2:07 AM EDT [facility] nRBC 0.0 <=0.0 per 100 WBCs LAB HEMATOLOGY METHOD 06/20/2025 2:07 AM EDT [facility] Blood Venous blood specimen / Unknown Venipuncture / Unknown 06/20/2025 1:52 AM EDT 06/20/2025 1:59 AM EDT Phillip Clark MD LAB BLOOD ORDERABLES Final R esult [facility] [address] [place] [address] * PERIPHERAL IV (SMARTFORM LINK) (06/20/2025 1:47 [...] ECG Atrial Rate 85 BPM MUSE ECG AL Interval 176 ms MUSE ECG QRSD Interval 110 ms MUSE ECG QT Interval 402 ms MUSE ECG QTC Interval 478 ms MUSE ECG P [place] 43 degrees MUSE ECG R [place] -30 degrees MUSE ECG T Wave [place] 36 degrees MUSE ECG Diagnosis Poor data quality, interpretation may be adversely affected MUSE ECG Diagnosis Sinus rhythm with premature supraventricular complexes and with occasional premature ventricular complexes MUSE ECG Diagnosis Left axis deviation MUSE ECG Diagnosis Poor R-wave progression MUSE ECG Diagnosis Abnormal ECG MUSE ECG Diagnosis Recommend repeat ECG MUSE ECG Diagnosis MUSE ECG Diagnosis Confirmed by Aman Coe ([id number]) on 06/19/2025 1:33:10 PM MUSE ECG 06/19/2025 12:4 9 PM EDT 06/19/2025 1:33 PM EDT us Barbara MARIE ECG ORDERABLES Final Resul t MUSE ECG * (ABNORMAL) Basic metabolic panel (06/19/2025 2:38 AM EDT) Glucose, Plasma 102(H) 74 - 99 mg/dL 06/19/2025 4:10 AM EDT [facility] BUN, Plasma 25(H) 8 - 23 mg/dL 06/19/2025 4:10 AM EDT [facility] Creatinine, Plasma 1.02 0.70 - 1.20 mg/dL 06/19/2025 4:10 AM EDT [facility] BUN/Creatinine Ratio 25 06/19/2025 4:10 AM EDT [facility] Sodium, Plasma 134(L) 136 - 145 mmol/L 06/19/2025 4:10 AM EDT [facility] Potassium, Plasma 4.6 3.6 - 4.9 mmol/L 06/19/2025 4:10 AM EDT [facility] Comment:Hemolyzed - Potassiu m may be falsely elevated by approximately 0.4-0.7 mmol/L. Chloride, Plasma 102 97 - 107 mmol/L 06/19/2025 4:10 AM EDT [facility] CO2, Plasma 23 22 - 29 mmol/L 06/19/2025 4:10 AM EDT [facility] Anion Gap 9 6 - 16 mmol/L 06/19/2025 4:10 AM EDT [facility] Total Calcium, Plasma 8.4(L) 8.9 - 10.2 mg/dL 06/19/2025 4:10 AM EDT [facility] eGFRcr 79.6 mL/min/1.7 3m*2 06/19/2025 4:10 AM EDT [facility] Comment:Reported eGFRcr in m L/min/1.73m2 is based the CKD-EPI 2020 equation that does not use a race coefficient. Blood Venous blood specimen / Unknown Venipuncture / Unknown 06/19/2025 2:38 AM EDT 06/19/2025 2:54 AM EDT us Phillip Clark MD LAB BLOOD ORDERABLES Final R esult Performing Organization Address City/[facility]/ZIP Co de Phone Number [facility] [address] [place] [address] * Phosphorus (06/19/2025 2:38 AM EDT) Phosphorus, Plasma 3.6 2.5 - 4.5 mg/dL 06/19/2025 4:10 AM EDT [facility] Blood Venous blood specimen / Unknown Venipuncture / Unknown 06/19/2025 2:38 AM EDT 06/19/2025 2:54 AM EDT us Phillip Clark MD LAB BLOOD ORDERABLES Final R esult Performing Organization Address City/[facility] de Phone Number [facility] [address] [place] [address] * (ABNORMAL) Protime-INR (06/19/2025 2:38 AM EDT) Prothrombin Time 26.3(H) 12.0 - 14.3 sec LAB COAGULATION METHOD 06/19/2025 3:09 AM EDT [facility] INR 2.4(H) 0.9 - 1.1 LAB COAGULATION METHOD 06/19/2025 3:09 AM EDT [facility] Blood Venous blood specimen / Unknown Venipuncture / Unknown 06/19/2025 2:38 AM EDT 06/19/2025 2:54 AM EDT Narrative [facility] - 06/19/2025 3:09 AM EDT OPTIMAL INR RANGES FOR PATIENT ON ORAL ANTICOAGULANT THERAPY Prevention of venous thromboembolism INR 2.0 to 3.0 In patients with heart disease: Atrial fibrillation INR 2.0 to 3.0 Valvular heart disease INR 2.0 to 3.0 Tissue heart valves INR 2.0 to 3.0 Mechanical prosthetic valves INR 2.5 to 3.5 Prevention of recurrent LA INR 2.5 to 3.5 us Phillip Clark MD LAB BLOOD ORDERABLES Final R esult [facility] [address] [place] [address] * Magnesium (06/19/2025 2:38 AM EDT) [facility] Magnesium, Plasma 2.4 1.9 - 2.4 mg/dL 06/19/2025 4:10 AM EDT [facility] Blood Venous blood specimen / Unknown Venipuncture / Unknown 06/19/2025 2:38 AM EDT 06/19/2025 2:54 AM EDT Phillip Clark MD LAB BLOOD ORDERABLES Final R esult Performing Organization Address City/[facility]/ZIP Co de Phone Number [facility] [address] [place] [address] * (ABNORMAL) CBC (06/19/2025 2:38 AM EDT) [facility] WBC Count 6.94 3.70 - 10.30 10*3/uL LAB HEMATOLOGY METHOD 06/19/2025 3:17 AM EDT [facility] RBC Count 4.12(L) 4.60 - 6.10 10*6/uL LAB HEMATOLOGY METHOD 06/19/2025 3:17 AM EDT [facility] HGB 11.5(L) 13.7 - 17.5 g/dL LAB HEMATOLOGY METHOD 06/19/2025 3:17 AM EDT [facility] HCT 35.7(L) 40.0 - 51.0 % LAB HEMATOLOGY METHOD 06/19/2025 3:17 AM EDT [facility] Platelet Count 165 155 - 369 10*3/uL LAB HEMATOLOGY METHOD 06/19/2025 3:17 AM EDT [facility] MCV 87 79 - 98 fL LAB HEMATOLOGY METHOD 06/19/2025 3:17 AM EDT [facility] MCH 27.9 26.0 - 32.0 pg LAB HEMATOLOGY METHOD 06/19/2025 3:17 AM EDT [facility] MCHC 32.2 30.7 - 35.5 g/dL LAB HEMATOLOGY METHOD 06/19/2025 3:17 AM EDT [facility] RDW 14.8(H) 11.5 - 14.5 % LAB HEMATOLOGY METHOD 06/19/2025 3:17 AM EDT [facility] MPV 10.6 8.8 - 12.5 fL LAB HEMATOLOGY METHOD 06/19/2025 3:17 AM EDT [facility] nRBC 0.0 <=0.0 per 100 WBCs LAB HEMATOLOGY METHOD 06/19/2025 3:17 AM EDT [facility] Blood Venous blood specimen / Unknown Venipuncture / Unknown 06/19/2025 2:38 AM EDT 06/19/2025 2:54 AM EDT us Phillip Clark MD LAB BLOOD ORDERABLES Final R esult [facility] [address] [place] [address] * XR Chest 1 View (06/19/2025 1:50 [...] - 99 mg/dL 06/18/2025 2:17 AM EDT [facility] BUN, Plasma 18 8 - 23 mg/dL 06/18/2025 2:17 AM EDT [facility] Creatinine, Plasma 0.82 0.70 - 1.20 mg/dL 06/18/2025 2:17 AM EDT [facility] BUN/Creatinine Ratio 22 06/18/2025 2:17 AM EDT [facility] Sodium, Plasma 134(L) 136 - 145 mmol/L 06/18/2025 2:17 AM EDT [facility] Potassium, Plasma 3.7 3.6 - 4.9 mmol/L 06/18/2025 2:17 AM EDT [facility] Chloride, Plasma 100 97 - 107 mmol/L 06/18/2025 2:17 AM EDT [facility] CO2, Plasma 26 22 - 29 mmol/L 06/18/2025 2:17 AM EDT [facility] Anion Gap 8 6 - 16 mmol/L 06/18/2025 2:17 AM EDT [facility] Total Calcium, Plasma 8.1(L) 8.9 - 10.2 mg/dL 06/18/2025 2:17 AM EDT [facility] eGFRcr 95.1 mL/min/1.7 3m*2 06/18/2025 2:17 AM EDT [facility] Comment:Reported eGFRcr in m L/min/1.73m2 is based the CKD-EPI 2020 equation that does not use a race coefficient. Blood Blood sample taken from central line / Unknown Venipuncture / Unknown 06/18/2025 1:43 AM EDT 06/18/2025 1:48 AM EDT us Phillip Clark MD LAB BLOOD ORDERABLES Final R esult [facility] [address] [place] [address] * Phosphorus (06/18/2025 1:43 AM EDT) Pathologist [facility] Phosphorus, Plasma 2.6 2.5 - 4.5 mg/dL 06/18/2025 2:17 AM EDT [facility] Blood Blood sample taken from central line / Unknown Venipuncture / Unknown 06/18/2025 1:43 AM EDT 06/18/2025 1:48 AM EDT Phillip Clark MD LAB BLOOD ORDERABLES Final R esult Performing Organization Address [facility] Co de Phone Number [facility] [address] [place] [address] * (ABNORMAL) Protime-INR (06/18/2025 1:43 AM EDT) Prothrombin Time 25.2(H) 12.0 - 14.3 sec LAB COAGULATION METHOD 06/18/2025 2:07 AM EDT [facility] INR 2.3(H) 0.9 - 1.1 LAB COAGULATION METHOD 06/18/2025 2:07 AM EDT [facility] Blood Blood sample taken from central line / Unknown Venipuncture / Unknown 06/18/2025 1:43 AM EDT 06/18/2025 1:48 AM EDT Narrative [facility] - 06/18/2025 2:07 AM EDT OPTIMAL INR RANGES FOR PATIENT ON ORAL ANTICOAGULANT THERAPY Prevention of venous thromboembolism INR 2.0 to 3.0 In patients with heart disease: Atrial fibrillation INR 2.0 to 3.0 Valvular heart disease INR 2.0 to 3.0 Tissue heart valves INR 2.0 to 3.0 Mechanical prosthetic valves INR 2.5 to 3.5 Prevention of recurrent LA INR 2.5 to 3.5 Phillip Clark MD LAB BLOOD ORDERABLES Final R esult Performing Organization Address City/[facility] Co de Phone Number [facility] [address] [place] [address] * Magnesium (06/18/2025 1:43 AM EDT) Magnesium, Plasma 2.3 1.9 - 2.4 mg/dL 06/18/2025 2:17 AM EDT [facility] Blood Blood sample taken from central line / Unknown Venipuncture / Unknown 06/18/2025 1:43 AM EDT 06/18/2025 1:48 AM EDT Phillip Clark MD LAB BLOOD ORDERABLES Final R esult [facility] [address] [place] [address] * (ABNORMAL) CBC (06/18/2025 1:43 AM EDT) WBC Count 8.51 3.70 - 10.30 10*3/uL LAB HEMATOLOGY METHOD 06/18/2025 1:54 AM EDT [facility] RBC Count 3.67(L) 4.60 - 6.10 10*6/uL LAB HEMATOLOGY METHOD 06/18/2025 1:54 AM EDT [facility] HGB 10.6(L) 13.7 - 17.5 g/dL LAB HEMATOLOGY METHOD 06/18/2025 1:54 AM EDT [facility] HCT 31.2(L) 40.0 - 51.0 % LAB HEMATOLOGY METHOD 06/18/2025 1:54 AM EDT [facility] Platelet Count 121(L) 155 - 369 10*3/uL LAB HEMATOLOGY METHOD 06/18/2025 1:54 AM EDT [facility] MCV 85 79 - 98 fL LAB HEMATOLOGY METHOD 06/18/2025 1:54 AM EDT [facility] MCH 28.9 26.0 - 32.0 pg LAB HEMATOLOGY METHOD 06/18/2025 1:54 AM EDT [facility] MCHC 34.0 30.7 - 35.5 g/dL LAB HEMATOLOGY METHOD 06/18/2025 1:54 AM EDT [facility] RDW 14.7(H) 11.5 - 14.5 % LAB HEMATOLOGY METHOD 06/18/2025 1:54 AM EDT [facility] MPV 10.4 8.8 - 12.5 fL LAB HEMATOLOGY METHOD 06/18/2025 1:54 AM EDT [facility] nRBC 0.0 <=0.0 per 100 WBCs LAB HEMATOLOGY METHOD 06/18/2025 1:54 AM EDT [facility] Blood Blood sample taken from central line / Unknown Venipuncture / Unknown 06/18/2025 1:43 AM EDT 06/18/2025 1:48 AM EDT us Phillip Clark MD LAB BLOOD ORDERABLES Final R esult [facility] [address] [place] [address] * XR Chest 1 View (06/17/2025 3:14 [...] - 99 mg/dL 06/17/2025 12:54 AM EDT [facility] BUN, Plasma 15 8 - 23 mg/dL 06/17/2025 12:54 AM EDT [facility] Creatinine, Plasma 0.81 0.70 - 1.20 mg/dL 06/17/2025 12:54 AM EDT [facility] BUN/Creatinine Ratio 19 06/17/2025 12:54 AM EDT [facility] Sodium, Plasma 133(L) 136 - 145 mmol/L 06/17/2025 12:54 AM EDT [facility] Potassium, Plasma 3.9 3.6 - 4.9 mmol/L 06/17/2025 12:54 AM EDT [facility] Chloride, Plasma 98 97 - 107 mmol/L 06/17/2025 12:54 AM EDT [facility] CO2, Plasma 25 22 - 29 mmol/L 06/17/2025 12:54 AM EDT [facility] Anion Gap 10 6 - 16 mmol/L 06/17/2025 12:54 AM EDT [facility] Total Calcium, Plasma 8.1(L) 8.9 - 10.2 mg/dL 06/17/2025 12:54 AM EDT [facility] eGFRcr 95.4 mL/min/1.7 3m*2 06/17/2025 12:54 AM EDT [facility] Comment:Reported eGFRcr in m L/min/1.73m2 is based the CKD-EPI 2020 equation that does not use a race coefficient. Blood Blood sample taken from central line / Unknown Venipuncture / Unknown 06/17/2025 12:17 AM EDT 06/17/2025 12:24 AM EDT Phillip Clark MD LAB BLOOD ORDERABLES Final R esult [facility] [address] [place] [address] * Phosphorus (06/17/2025 12:17 AM EDT) Phosphorus, Plasma 2.9 2.5 - 4.5 mg/dL 06/17/2025 12:54 AM EDT [facility] Blood Blood sample taken from central line / Unknown Venipuncture / Unknown 06/17/2025 12:17 AM EDT 06/17/2025 12:24 AM EDT us Phillip Clark MD LAB BLOOD ORDERABLES Final R esult Performing Organization Address [facility] Co de Phone Number [facility] [address] [place] [address] * (ABNORMAL) Protime-INR (06/17/2025 12:17 AM EDT) Prothrombin Time 18.7(H) 12.0 - 14.3 sec LAB COAGULATION METHOD 06/17/2025 1:16 AM EDT [facility] INR 1.5(H) 0.9 - 1.1 LAB COAGULATION METHOD 06/17/2025 1:16 AM EDT [facility] Blood Blood sample taken from central line / Unknown Venipuncture / Unknown 06/17/2025 12:17 AM EDT 06/17/2025 12:24 AM EDT Narrative [facility] - 06/17/2025 1:16 AM EDT OPTIMAL INR RANGES FOR PATIENT ON ORAL ANTICOAGULANT THERAPY Prevention of venous thromboembolism INR 2.0 to 3.0 In patients with heart disease: Atrial fibrillation INR 2.0 to 3.0 Valvular heart disease INR 2.0 to 3.0 Tissue heart valves INR 2.0 to 3.0 Mechanical prosthetic valves INR 2.5 to 3.5 Prevention of recurrent LA INR 2.5 to 3.5 us Phillip Clark MD LAB BLOOD ORDERABLES Final R esult Performing Organization Address [facility] Co de Phone Number [facility] [address] [place] [address] * Magnesium (06/17/2025 12:17 AM EDT) Magnesium, Plasma 2.3 1.9 - 2.4 mg/dL 06/17/2025 12:54 AM EDT [facility] Blood Blood sample taken from central line / Unknown Venipuncture / Unknown 06/17/2025 12:17 AM EDT 06/17/2025 12:24 AM EDT us Phillip Clark MD LAB BLOOD ORDERABLES Final R esult [facility] [address] [place] [address] * (ABNORMAL) CBC (06/17/2025 12:17 AM EDT) WBC Count 10.83(H) 3.70 - 10.30 10*3/uL LAB HEMATOLOGY METHOD 06/17/2025 12:32 AM EDT [facility] RBC Count 4.08(L) 4.60 - 6.10 10*6/uL LAB HEMATOLOGY METHOD 06/17/2025 12:32 AM EDT [facility] HGB 11.3(L) 13.7 - 17.5 g/dL LAB HEMATOLOGY METHOD 06/17/2025 12:32 AM EDT [facility] HCT 35.0(L) 40.0 - 51.0 % LAB HEMATOLOGY METHOD 06/17/2025 12:32 AM EDT [facility] Platelet Count 116(L) 155 - 369 10*3/uL LAB HEMATOLOGY METHOD 06/17/2025 12:32 AM EDT [facility] MCV 86 79 - 98 fL LAB HEMATOLOGY METHOD 06/17/2025 12:32 AM EDT [facility] MCH 27.7 26.0 - 32.0 pg LAB HEMATOLOGY METHOD 06/17/2025 12:32 AM EDT [facility] MCHC 32.3 30.7 - 35.5 g/dL LAB HEMATOLOGY METHOD 06/17/2025 12:32 AM EDT [facility] RDW 15.1(H) 11.5 - 14.5 % LAB HEMATOLOGY METHOD 06/17/2025 12:32 AM EDT [facility] MPV 10.3 8.8 - 12.5 fL LAB HEMATOLOGY METHOD 06/17/2025 12:32 AM EDT [facility] nRBC 0.0 <=0.0 per 100 WBCs LAB HEMATOLOGY METHOD 06/17/2025 12:32 AM EDT [facility] Blood Blood sample taken from central line / Unknown Venipuncture / Unknown 06/17/2025 12:17 AM EDT 06/17/2025 12:24 AM EDT us Phillip Clark MD LAB BLOOD ORDERABLES Final R esult Performing Organization Address City/[facility]/ZIP Co de Phone Number [facility] [address] [place] [address] * Magnesium (06/16/2025 5:35 PM EDT) Magnesium, Plasma 2.2 1.9 - 2.4 mg/dL 06/16/2025 7:41 PM EDT [facility] Blood Venous blood specimen / Unknown Venipuncture / Unknown 06/16/2025 5:35 PM EDT 06/16/2025 7:12 PM EDT us Phillip Clark MD LAB BLOOD ORDERABLES Final R esult [facility] [address] [place] [address] * (ABNORMAL) Renal function panel (06/16/2025 5:35 PM EDT) Glucose, Plasma 89 74 - 99 mg/dL 06/16/2025 7:41 PM EDT [facility] BUN, Plasma 15 8 - 23 mg/dL 06/16/2025 7:41 PM EDT [facility] Creatinine, Plasma 0.79 0.70 - 1.20 mg/dL 06/16/2025 7:41 PM EDT [facility] BUN/Creatinine Ratio 19 06/16/2025 7:41 PM EDT [facility] Sodium, Plasma 134(L) 136 - 145 mmol/L 06/16/2025 7:41 PM EDT [facility] Potassium, Plasma 3.8 3.6 - 4.9 mmol/L 06/16/2025 7:41 PM EDT [facility] Chloride, Plasma 98 97 - 107 mmol/L 06/16/2025 7:41 PM EDT [facility] CO2, Plasma 25 22 - 29 mmol/L 06/16/2025 7:41 PM EDT [facility] Anion Gap 11 6 - 16 mmol/L 06/16/2025 7:41 PM EDT [facility] Total Calcium, Plasma 8.4(L) 8.9 - 10.2 mg/dL 06/16/2025 7:41 PM EDT [facility] Phosphorus, Plasma 2.2(L) 2.5 - 4.5 mg/dL 06/16/2025 7:41 PM EDT [facility] Albumin, Plasma 3.4(L) 3.5 - 5.2 g/dL 06/16/2025 7:41 PM EDT [facility] eGFRcr 96.2 mL/min/1.7 3m*2 06/16/2025 7:41 PM EDT [facility] Comment:Reported eGFRcr in m L/min/1.73m2 is based the CKD-EPI 2020 equation that does not use a race coefficient. Blood Venous blood specimen / Unknown Venipuncture / Unknown 06/16/2025 5:35 PM EDT 06/16/2025 7:12 PM EDT Phillip Clark MD LAB BLOOD ORDERABLES Final R esult [facility] [address] [place] [address] * AL CRITICAL CARE, E/M 30-74 MINUTES (06/16/2025 9:58 [...] Comment 06/16/2025 8:45 AM EDT [facility] Warehouse Pricing And Inventory Clerk ID Fariba Blanton 025 8:45 AM EDT [facility] Device ID [id number] 06/16/2025 8:45 AM EDT [facility] Specimen Type POC Arterial 06/16/2025 8:45 AM EDT [facility] Blood Arterial blood specimen / Unknown 06/16/2025 8:40 AM EDT 06/16/2025 8:45 AM EDT us Phillip Clark MD LAB POINT OF CARE TE ST DOCKED DEVICE UNSOLICITED RESULTS Final Result [facility] [address] [place] [address] * (ABNORMAL) Basic metabolic panel (06/16/2025 5:58 AM EDT) Glucose, Plasma 124(H) 74 - 99 mg/dL 06/16/2025 6:35 AM EDT [facility] BUN, Plasma 16 8 - 23 mg/dL 06/16/2025 6:35 AM EDT [facility] Creatinine, Plasma 0.83 0.70 - 1.20 mg/dL 06/16/2025 6:35 AM EDT [facility] BUN/Creatinine Ratio 19 06/16/2025 6:35 AM EDT [facility] Sodium, Plasma 132(L) 136 - 145 mmol/L 06/16/2025 6:35 AM EDT [facility] Potassium, Plasma 3.8 3.6 - 4.9 mmol/L 06/16/2025 6:35 AM EDT [facility] Chloride, Plasma 100 97 - 107 mmol/L 06/16/2025 6:35 AM EDT [facility] CO2, Plasma 25 22 - 29 mmol/L 06/16/2025 6:35 AM EDT [facility] Anion Gap 7 6 - 16 mmol/L 06/16/2025 6:35 AM EDT [facility] Total Calcium, Plasma 8.4(L) 8.9 - 10.2 mg/dL 06/16/2025 6:35 AM EDT [facility] eGFRcr 94.7 mL/min/1.7 3m*2 06/16/2025 6:35 AM EDT [facility] Comment:Reported eGFRcr in m L/min/1.73m2 is based the CKD-EPI 2020 equation that does not use a race coefficient. Blood Arterial blood specimen / Unknown Venipuncture / Unknown 06/16/2025 5:58 AM EDT 06/16/2025 6:05 AM EDT us Phillip Clark MD LAB BLOOD ORDERABLES Final R esult [facility] [address] [place] [address] * XR Chest 1 View (06/16/2025 5:14 AM EDT) Anatomical Region Laterality Modality Chest Digital Radiogra phy Impressions 06/16/2025 8:15 AM EDT Interval removal of the [place] catheter, the right IJ sheath remains in [...] post median sternotomy. Interval removal of the [place] catheter, right IJ sheath remains in place with tip in the mid to distal SVC. No pneumothorax or pleural effusions. Ongoing interstitial edema. Procedure Note Mona Smith MD - 06/16/2025 CLINICAL INDICATION: Post-Op Cardiac Surgery TECHNIQUE: XR CHEST 1 VIEW COMPARISON: Chest radiograph 06/15/2025 FINDINGS: Enlarged cardiac silhouette stable status post median sternotomy. Intervalremoval of the [place] catheter, right IJ sheath remains in place withtip in the mid to distal SVC. No pneumothorax or pleural effusions. Ongoing interstitial edema. IMPRESSION: Interval removal of the [place] catheter, the right IJ sheath remainsin place [...] - 4.5 mg/dL 06/16/2025 1:12 AM EDT [facility] Blood Arterial blood specimen / Unknown Venipuncture / Unknown 06/16/2025 12:36 AM EDT 06/16/2025 12:48 AM EDT us Phillip Clark MD LAB BLOOD ORDERABLES Final R esult [facility] [address] [place] [address] * (ABNORMAL) Protime-INR (06/16/2025 12:36 AM EDT) [facility] Prothrombin Time 18.0(H) 12.0 - 14.3 sec LAB COAGULATION METHOD 06/16/2025 1:06 AM EDT [facility] INR 1.5(H) 0.9 - 1.1 LAB COAGULATION METHOD 06/16/2025 1:06 AM EDT [facility] Blood Arterial blood specimen / Unknown Venipuncture / Unknown 06/16/2025 12:36 AM EDT 06/16/2025 12:48 AM EDT Narrative [facility] - 06/16/2025 1:06 AM EDT OPTIMAL INR RANGES FOR PATIENT ON ORAL ANTICOAGULANT THERAPY Prevention of venous thromboembolism INR 2.0 to 3.0 In patients with heart disease: Atrial fibrillation INR 2.0 to 3.0 Valvular heart disease INR 2.0 to 3.0 Tissue heart valves INR 2.0 to 3.0 Mechanical prosthetic valves INR 2.5 to 3.5 Prevention of recurrent LA INR 2.5 to 3.5 us Phillip Clark MD LAB BLOOD ORDERABLES Final R esult [facility] [address] [place] [address] * (ABNORMAL) Magnesium (06/16/2025 12:36 AM EDT) [facility] Magnesium, Plasma 2.5(H) 1.9 - 2.4 mg/dL 06/16/2025 1:12 AM EDT [facility] Blood Arterial blood specimen / Unknown Venipuncture / Unknown 06/16/2025 12:36 AM EDT 06/16/2025 12:48 AM EDT Phillip Clark MD LAB BLOOD ORDERABLES Final R esult [facility] [address] [place] [address] * (ABNORMAL) CBC (06/16/2025 12:36 AM EDT) WBC Count 13.67(H) 3.70 - 10.30 10*3/uL LAB HEMATOLOGY METHOD 06/16/2025 1:01 AM EDT [facility] RBC Count 4.36(L) 4.60 - 6.10 10*6/uL LAB HEMATOLOGY METHOD 06/16/2025 1:01 AM EDT [facility] HGB 12.3(L) 13.7 - 17.5 g/dL LAB HEMATOLOGY METHOD 06/16/2025 1:01 AM EDT [facility] HCT 37.1(L) 40.0 - 51.0 % LAB HEMATOLOGY METHOD 06/16/2025 1:01 AM EDT [facility] Platelet Count 106(L) 155 - 369 10*3/uL LAB HEMATOLOGY METHOD 06/16/2025 1:01 AM EDT [facility] MCV 85 79 - 98 fL LAB HEMATOLOGY METHOD 06/16/2025 1:01 AM EDT [facility] MCH 28.2 26.0 - 32.0 pg LAB HEMATOLOGY METHOD 06/16/2025 1:01 AM EDT [facility] MCHC 33.2 30.7 - 35.5 g/dL LAB HEMATOLOGY METHOD 06/16/2025 1:01 AM EDT [facility] RDW 15.4(H) 11.5 - 14.5 % LAB HEMATOLOGY METHOD 06/16/2025 1:01 AM EDT [facility] MPV 10.8 8.8 - 12.5 fL LAB HEMATOLOGY METHOD 06/16/2025 1:01 AM EDT [facility] nRBC 0.0 <=0.0 per 100 WBCs LAB HEMATOLOGY METHOD 06/16/2025 1:01 AM EDT [facility] Blood Arterial blood specimen / Unknown Venipuncture / Unknown 06/16/2025 12:36 AM EDT 06/16/2025 12:48 AM EDT us Phillip Clark MD LAB BLOOD ORDERABLES Final R esult [facility] [address] [place] [address] * (ABNORMAL) Blood gas, arterial (06/16/2025 12:36 AM EDT) pH, Arterial 7.43(H) 7.31 - 7.42 LAB HEMATOLOGY METHOD 06/16/2025 12:58 AM EDT [facility] pCO2, Arterial 41 32 - 45 mmHg LAB HEMATOLOGY METHOD 06/16/2025 12:58 AM EDT [facility] pO2, Arterial 65(L) >80 mmHg LAB HEMATOLOGY METHOD 06/16/2025 12:58 AM EDT [facility] SO2, Measured, Arterial 94 94 - 98 % LAB HEMATOLOGY METHOD 06/16/2025 12:58 AM EDT [facility] Base Excess, Arterial 2.5 -2.0 - 3.0 mmol/L LAB HEMATOLOGY METHOD 06/16/2025 12:58 AM EDT [facility] Bicarbonate, Calculated, Arterial 27(H) 22 - 26 mmol/L LAB HEMATOLOGY METHOD 06/16/2025 12:58 AM EDT [facility] Hematocrit, Whole Blood 37.9(L) 40.0 - 51.0 % LAB HEMATOLOGY METHOD 06/16/2025 12:58 AM EDT [facility] Sodium, Whole Blood 133(L) 136 - 145 mmol/L LAB HEMATOLOGY METHOD 06/16/2025 12:58 AM EDT [facility] Potassium, Whole Blood 3.4(L) 3.6 - 4.9 mmol/L LAB HEMATOLOGY METHOD 06/16/2025 12:58 AM EDT [facility] Chloride, Whole Blood 100 97 - 107 mmol/L LAB HEMATOLOGY METHOD 06/16/2025 12:58 AM EDT [facility] Glucose, Whole Blood 124(H) 74 - 99 mg/dL LAB HEMATOLOGY METHOD 06/16/2025 12:58 AM EDT [facility] Ionized Calcium, Whole Blood 4.3(L) 4.6 - 5.1 mg/dL LAB HEMATOLOGY METHOD 06/16/2025 12:58 AM EDT [facility] Lactate, Arterial, Whole Blood 1.0 0.5 - 1.6 mmol/L LAB HEMATOLOGY METHOD 06/16/2025 12:58 AM EDT [facility] Blood Arterial blood specimen / Unknown Arterial Puncture / Unknown 06/16/2025 12:36 AM EDT 06/16/2025 12:55 AM EDT us Phillip Clark MD LAB BLOOD ORDERABLES Final R esult Performing Organization Address City/[facility]/ZIP Co de Phone Number [facility] [address] [place] [address] * (ABNORMAL) POCT glucose meter (06/15/2025 8:00 PM EDT) Pathologist [facility] POCT Glucose 120(H) 74 - 99 mg/dL [...] Comment 06/15/2025 8:01 PM EDT [facility] Warehouse Pricing And Inventory Clerk ID Svetlana Reilly 8:01 PM EDT [facility] LAB Device ID [id number] 06/15/2025 8:01 PM EDT [facility] Specimen Type POC Capillary 06/15/2025 8:01 PM EDT [facility] Blood Capillary blood specimen / Unknown 06/15/2025 8:00 PM EDT 06/15/2025 8:01 PM EDT us Phillip Clark MD LAB POINT OF CARE TE ST DOCKED DEVICE UNSOLICITED RESULTS Final Result Performing Organization Address City/[facility] Co de Phone Number [facility] [address] [place] [address] * (ABNORMAL) POCT glucose meter (06/15/2025 5:56 PM EDT) Pathologist [facility] POCT Glucose 121(H) 74 - 99 mg/dL [...] Comment 06/15/2025 5:57 PM EDT [facility] Warehouse Pricing And Inventory Clerk ID Bony Thmoas 025 5:57 PM EDT [facility] Device ID [id number] 06/15/2025 5:57 PM EDT [facility] Specimen Type POC Arterial 06/15/2025 5:57 PM EDT [facility] Blood Arterial blood specimen / Unknown 06/15/2025 5:56 PM EDT 06/15/2025 5:57 PM EDT us Phillip Clark MD LAB POINT OF CARE TE ST DOCKED DEVICE UNSOLICITED RESULTS Final Result Performing Organization Address City/[facility] Co de Phone Number [facility] [address] [place] [address] * Magnesium (06/15/2025 4:11 PM EDT) Magnesium, Plasma 2.1 1.9 - 2.4 mg/dL 06/15/2025 6:21 PM EDT [facility] Blood Venous blood specimen / Unknown Venipuncture / Unknown 06/15/2025 4:11 PM EDT 06/15/2025 4:39 PM EDT us Phillip Clark MD LAB BLOOD ORDERABLES Final R esult Performing Organization Address City/[facility] Co de Phone Number [facility] [address] [place] [address] * Phosphorus (06/15/2025 4:11 PM EDT) Phosphorus, Plasma 2.9 2.5 - 4.5 mg/dL 06/15/2025 5:12 PM EDT [facility] Blood Venous blood specimen / Unknown Venipuncture / Unknown 06/15/2025 4:11 PM EDT 06/15/2025 4:39 PM EDT Phillip Clark MD LAB BLOOD ORDERABLES Final R esult Performing Organization Address City/[facility]/ZIP Co de Phone Number [facility] [address] [place] [address] * (ABNORMAL) Basic metabolic panel (06/15/2025 4:11 PM EDT) Glucose, Plasma 123(H) 74 - 99 mg/dL 06/15/2025 5:12 PM EDT [facility] BUN, Plasma 19 8 - 23 mg/dL 06/15/2025 5:12 PM EDT [facility] Creatinine, Plasma 0.88 0.70 - 1.20 mg/dL 06/15/2025 5:12 PM EDT [facility] BUN/Creatinine Ratio 22 06/15/2025 5:12 PM EDT [facility] Sodium, Plasma 133(L) 136 - 145 mmol/L 06/15/2025 5:12 PM EDT [facility] Potassium, Plasma 3.9 3.6 - 4.9 mmol/L 06/15/2025 5:12 PM EDT [facility] Chloride, Plasma 102 97 - 107 mmol/L 06/15/2025 5:12 PM EDT [facility] CO2, Plasma 23 22 - 29 mmol/L 06/15/2025 5:12 PM EDT [facility] Anion Gap 8 6 - 16 mmol/L 06/15/2025 5:12 PM EDT [facility] Total Calcium, Plasma 8.6(L) 8.9 - 10.2 mg/dL 06/15/2025 5:12 PM EDT [facility] eGFRcr 93.1 mL/min/1.7 3m*2 06/15/2025 5:12 PM EDT [facility] Comment:Reported eGFRcr in m L/min/1.73m2 is based the CKD-EPI 2020 equation that does not use a race coefficient. Blood Venous blood specimen / Unknown Venipuncture / Unknown 06/15/2025 4:11 PM EDT 06/15/2025 4:39 PM EDT us Phillip Clark MD LAB BLOOD ORDERABLES Final R esult [facility] [address] [place] [address] * (ABNORMAL) POCT glucose meter (06/15/2025 12:14 [...] Comment 06/15/2025 12:16 PM EDT [facility] [employer] Clerk ID Bony Thomas [id number] 12:16 PM EDT [facility] Device ID [id number] 06/15/2025 12:16 PM EDT [facility] Specimen Type POC Arterial 06/15/2025 12:16 PM EDT [facility] Blood Arterial blood specimen / Unknown 06/15/2025 12:14 PM EDT 06/15/2025 12:16 PM EDT Phillip Clark MD LAB POINT OF CARE TE ST DOCKED DEVICE UNSOLICITED RESULTS Final Result [facility] [address] [place] [address] * AL CRITICAL CARE, E/M 30-74 MINUTES (06/15/2025 9:19 [...] for testing. Comment 06/15/2025 8:25 AM EDT [facility] [employer] And Inventory Clerk ID Bony Thomas [id number] 8:25 AM EDT [facility] Device ID [id number] 06/15/2025 8:25 AM EDT [facility] Specimen Type POC Arterial 06/15/2025 8:25 AM EDT [facility] Blood Arterial blood specimen / Unknown 06/15/2025 8:24 AM EDT 06/15/2025 8:25 AM EDT us Phillip Clark MD LAB POINT OF CARE TE ST DOCKED DEVICE UNSOLICITED RESULTS Final Result Performing Organization Address City/State/[facility] Co de Phone Number [facility] [address] [place] [id number] * (ABNORMAL) CBC and Differential (06/15/2025 8:18 AM EDT) WBC Count 12.56(H) 3.70 - 10.30 10*3/uL LAB HEMATOLOGY METHOD 06/15/2025 8:47 AM EDT [facility] RBC Count 4.60 4.60 - 6.10 10*6/uL LAB HEMATOLOGY METHOD 06/15/2025 8:47 AM EDT [facility] HGB 12.8(L) 13.7 - 17.5 g/dL LAB HEMATOLOGY METHOD 06/15/2025 8:47 AM EDT [facility] HCT 39.4(L) 40.0 - 51.0 % LAB HEMATOLOGY METHOD 06/15/2025 8:47 AM EDT [facility] Platelet Count 120(L) 155 - 369 10*3/uL LAB HEMATOLOGY METHOD 06/15/2025 8:47 AM EDT [facility] MCV 86 79 - 98 fL LAB HEMATOLOGY METHOD 06/15/2025 8:47 AM EDT [facility] MCH 27.8 26.0 - 32.0 pg LAB HEMATOLOGY METHOD 06/15/2025 8:47 AM EDT [facility] MCHC 32.5 30.7 - 35.5 g/dL LAB HEMATOLOGY METHOD 06/15/2025 8:47 AM EDT [facility] RDW 15.5(H) 11.5 - 14.5 % LAB HEMATOLOGY METHOD 06/15/2025 8:47 AM EDT [facility] MPV 10.6 8.8 - 12.5 fL LAB HEMATOLOGY METHOD 06/15/2025 8:47 AM EDT [facility] nRBC 0.0 <=0.0 per 100 WBCs LAB HEMATOLOGY METHOD 06/15/2025 8:47 AM EDT [facility] Differential Type Automated LAB HEMATOLOGY METHOD 06/15/2025 8:47 AM EDT [facility] Neutrophils % 84 % LAB HEMATOLOGY METHOD 06/15/2025 8:47 AM EDT [facility] Lymphocytes % 5 % LAB HEMATOLOGY METHOD 06/15/2025 8:47 AM EDT [facility] Monocytes % 10 % LAB HEMATOLOGY METHOD 06/15/2025 8:47 AM EDT [facility] Eosinophils % 0 % LAB HEMATOLOGY METHOD 06/15/2025 8:47 AM EDT [facility] Basophils % 0 % LAB HEMATOLOGY METHOD 06/15/2025 8:47 AM EDT [facility] Immature Granulocytes % 1 % LAB HEMATOLOGY METHOD 06/15/2025 8:47 AM EDT [facility] Neutrophils Absolute 10.59(H) 1.60 - 6.10 10*3/uL LAB HEMATOLOGY METHOD 06/15/2025 8:47 AM EDT [facility] Lymphocytes Absolute 0.60(L) 1.20 - 3.90 10*3/uL LAB HEMATOLOGY METHOD 06/15/2025 8:47 AM EDT [facility] Monocytes Absolute 1.29(H) 0.30 - 0.90 10*3/uL LAB HEMATOLOGY METHOD 06/15/2025 8:47 AM EDT [facility] Eosinophils Absolute 0.00 0.00 - 0.50 10*3/uL LAB HEMATOLOGY METHOD 06/15/2025 8:47 AM EDT [facility] Basophils Absolute 0.02 0.00 - 0.10 10*3/uL LAB HEMATOLOGY METHOD 06/15/2025 8:47 AM EDT [facility] Immature Granulocytes Absolute 0.06 0.00 - 0.06 10*3/uL LAB HEMATOLOGY METHOD 06/15/2025 8:47 AM EDT [facility] Blood Venous blood specimen / Unknown Venipuncture / Unknown 06/15/2025 8:18 AM EDT 06/15/2025 8:34 AM EDT Narrative [facility] - 06/15/2025 8:47 AM EDT Therapeutic decision making should be based on absolute values, rather than percentages. us Phillip Clark MD LAB BLOOD ORDERABLES Final R esult [facility] [address] [place] [address] * (ABNORMAL) Protime-INR (06/15/2025 6:40 AM EDT) Prothrombin Time 16.5(H) 12.0 - 14.3 sec LAB COAGULATION METHOD 06/15/2025 7:53 AM EDT [facility] INR 1.3(H) 0.9 - 1.1 LAB COAGULATION METHOD 06/15/2025 7:53 AM EDT [facility] Blood Arterial blood specimen / Unknown Venipuncture / Unknown 06/15/2025 6:40 AM EDT 06/15/2025 6:47 AM EDT Narrative [facility] - 06/15/2025 7:53 AM EDT OPTIMAL INR RANGES FOR PATIENT ON ORAL ANTICOAGULANT THERAPY Prevention of venous thromboembolism INR 2.0 to 3.0 In patients with heart disease: Atrial fibrillation INR 2.0 to 3.0 Valvular heart disease INR 2.0 to 3.0 Tissue heart valves INR 2.0 to 3.0 Mechanical prosthetic valves INR 2.5 to 3.5 Prevention of recurrent LA INR 2.5 to 3.5 Phillip Clark MD LAB BLOOD ORDERABLES Final R esult Performing Organization Address [facility] Co de Phone Number [facility] [address] [place] [address] * Ionized calcium, whole blood (06/15/2025 6:40 AM EDT) Ionized Calcium, Whole Blood 4.6 4.6 - 5.1 mg/dL LAB HEMATOLOGY METHOD 06/15/2025 6:50 AM EDT [facility] Blood Arterial blood specimen / Unknown Venipuncture / Unknown 06/15/2025 6:40 AM EDT 06/15/2025 6:48 AM EDT Phillip Clark MD LAB BLOOD ORDERABLES Final R esult Performing Organization Address [facility] [place] [address] * ECG Adult - POD 1 (06/15/2025 5:20 AM EDT) EKG DIAGNOSIS CLASS Abnormal MUSE ECG Ventricular Rate 71 BPM MUSE ECG Atrial Rate 71 BPM MUSE ECG AL Interval 182 ms MUSE ECG QRSD Interval 108 ms MUSE ECG QT Interval 418 ms MUSE ECG QTC Interval 454 ms MUSE ECG P [place] 51 degrees MUSE ECG R [place] -48 degrees MUSE ECG T Wave [place] -12 degrees MUSE ECG Diagnosis Normal sinus rhythm MUSE ECG Diagnosis Left anterior fascicular block MUSE ECG Diagnosis Abnormal ECG MUSE ECG Diagnosis MUSE ECG Diagnosis Confirmed by Bimal Brambila ([id number]) on 06/15/2025 11:38:57 AM MUSE ECG 06/15/2025 5:20 AM EDT 06/15/2025 11:38 AM EDT Phillip Clark MD ECG ORDERABLES Final Result MUSE ECG * (ABNORMAL) Blood gas panel, arterial (06/15/2025 3:58 AM EDT) pH, Arterial 7.39 7.31 - 7.42 LAB HEMATOLOGY METHOD 06/15/2025 4:06 AM EDT [facility] pCO2, Arterial 39 32 - 45 mmHg LAB HEMATOLOGY METHOD 06/15/2025 4:06 AM EDT [facility] pO2, Arterial 79(L) >80 mmHg LAB HEMATOLOGY METHOD 06/15/2025 4:06 AM EDT [facility] SO2, Measured, Arterial 97 94 - 98 % LAB HEMATOLOGY METHOD 06/15/2025 4:06 AM EDT [facility] Base Excess, Arterial -1.2 -2.0 - 3.0 mmol/L LAB HEMATOLOGY METHOD 06/15/2025 4:06 AM EDT [facility] Bicarbonate, Calculated, Arterial 24 22 - 26 mmol/L LAB HEMATOLOGY METHOD 06/15/2025 4:06 AM EDT [facility] Hematocrit, Whole Blood 39.7(L) 40.0 - 51.0 % LAB HEMATOLOGY METHOD 06/15/2025 4:06 AM EDT [facility] Sodium, Whole Blood 134(L) 136 - 145 mmol/L LAB HEMATOLOGY METHOD 06/15/2025 4:06 AM EDT [facility] Potassium, Whole Blood 4.4 3.6 - 4.9 mmol/L LAB HEMATOLOGY METHOD 06/15/2025 4:06 AM EDT [facility] Chloride, Whole Blood 108(H) 97 - 107 mmol/L LAB HEMATOLOGY METHOD 06/15/2025 4:06 AM EDT [facility] Glucose, Whole Blood 132(H) 74 - 99 mg/dL LAB HEMATOLOGY METHOD 06/15/2025 4:06 AM EDT [facility] Ionized Calcium, Whole Blood 4.5(L) 4.6 - 5.1 mg/dL LAB HEMATOLOGY METHOD 06/15/2025 4:06 AM EDT [facility] Lactate, Arterial, Whole Blood 0.9 0.5 - 1.6 mmol/L LAB HEMATOLOGY METHOD 06/15/2025 4:06 AM EDT [facility] Blood Arterial blood specimen / Unknown Arterial Puncture / Unknown 06/15/2025 3:58 AM EDT 06/15/2025 4:06 AM EDT us Phillip Clark MD LAB BLOOD ORDERABLES Final R esult [facility] [address] [place] [address] * XR Chest 1 View (06/15/2025 2:53 [...] of NG tube. Right internal jugular approach [place] catheter and mediastinal drain in unchanged position. [...] IMG XR PROCEDURES Final Resu lt * AL CRITICAL CARE, ADDL 30 MIN, AL CRITICAL CARE, ADDL 30 MIN (06/15/2025 12:21 [...] LAB HEMATOLOGY METHOD 06/15/2025 8:17 AM EDT [facility] Neutrophils % 85 % LAB HEMATOLOGY METHOD 06/15/2025 8:17 AM EDT [facility] Lymphocytes % 4 % LAB HEMATOLOGY METHOD 06/15/2025 8:17 AM EDT [facility] Monocytes % 10 % LAB HEMATOLOGY METHOD 06/15/2025 8:17 AM EDT [facility] Eosinophils % 0 % LAB HEMATOLOGY METHOD 06/15/2025 8:17 AM EDT [facility] Basophils % 0 % LAB HEMATOLOGY METHOD 06/15/2025 8:17 AM EDT [facility] Immature Granulocytes % 1 % LAB HEMATOLOGY METHOD 06/15/2025 8:17 AM EDT [facility] Immature Granulocytes Absolute 0.05 0.00 - 0.06 10*3/uL LAB HEMATOLOGY METHOD 06/15/2025 8:17 AM EDT [facility] Neutrophils Absolute 9.28(H) 1.60 - 6.10 10*3/uL LAB HEMATOLOGY METHOD 06/15/2025 8:17 AM EDT [facility] Lymphocytes Absolute 0.45(L) 1.20 - 3.90 10*3/uL LAB HEMATOLOGY METHOD 06/15/2025 8:17 AM EDT [facility] Monocytes Absolute 1.14(H) 0.30 - 0.90 10*3/uL LAB HEMATOLOGY METHOD 06/15/2025 8:17 AM EDT [facility] Basophils Absolute 0.02 0.00 - 0.10 10*3/uL LAB HEMATOLOGY METHOD 06/15/2025 8:17 AM EDT [facility] Eosinophils Absolute 0.00 0.00 - 0.50 10*3/uL LAB HEMATOLOGY METHOD 06/15/2025 8:17 AM EDT [facility] Blood Venous blood specimen / Unknown Venipuncture / Unknown 06/15/2025 12:20 AM EDT 06/15/2025 12:26 AM EDT us Phillip Clark MD LAB BLOOD ORDERABLES Final R esult Performing Organization Address City/State/[facility] de Phone Number [facility] [address] [place] [address] * Phosphorus (06/15/2025 12:20 AM EDT) Phosphorus, Plasma 2.6 2.5 - 4.5 mg/dL 06/15/2025 8:33 AM EDT [facility] Blood Venous blood specimen / Unknown Venipuncture / Unknown 06/15/2025 12:20 AM EDT 06/15/2025 12:26 AM EDT Phillip Clark MD LAB BLOOD ORDERABLES Final R esult [facility] [address] [place] [address] * (ABNORMAL) Magnesium (06/15/2025 12:20 AM EDT) Magnesium, Plasma 2.5(H) 1.9 - 2.4 mg/dL 06/15/2025 7:37 AM EDT [facility] Blood Venous blood specimen / Unknown Venipuncture / Unknown 06/15/2025 12:20 AM EDT 06/15/2025 12:26 AM EDT us Phillip Clark MD LAB BLOOD ORDERABLES Final R esult Performing Organization Address [facility]/ZIP Co de Phone Number [facility] [address] [place] [address] * (ABNORMAL) Basic metabolic panel (06/15/2025 12:20 AM EDT) Pathologist [facility] Glucose, Plasma 140(H) 74 - 99 mg/dL 06/15/2025 7:37 AM EDT [facility] BUN, Plasma 17 8 - 23 mg/dL 06/15/2025 7:37 AM EDT [facility] Creatinine, Plasma 0.84 0.70 - 1.20 mg/dL 06/15/2025 7:37 AM EDT [facility] BUN/Creatinine Ratio 20 06/15/2025 7:37 AM EDT [facility] Sodium, Plasma 138 136 - 145 mmol/L 06/15/2025 7:37 AM EDT [facility] Potassium, Plasma 4.6 3.6 - 4.9 mmol/L 06/15/2025 7:37 AM EDT [facility] Chloride, Plasma 107 97 - 107 mmol/L 06/15/2025 7:37 AM EDT [facility] CO2, Plasma 18(L) 22 - 29 mmol/L 06/15/2025 7:37 AM EDT [facility] Anion Gap 13 6 - 16 mmol/L 06/15/2025 7:37 AM EDT [facility] Total Calcium, Plasma 8.0(L) 8.9 - 10.2 mg/dL 06/15/2025 7:37 AM EDT [facility] eGFRcr 94.4 mL/min/1.7 3m*2 06/15/2025 7:37 AM EDT [facility] Comment:Reported eGFRcr in m L/min/1.73m2 is based the CKD-EPI 2020 equation that does not use a race coefficient. Blood Venous blood specimen / Unknown Venipuncture / Unknown 06/15/2025 12:20 AM EDT 06/15/2025 12:26 AM EDT us Phillip Clark MD LAB BLOOD ORDERABLES Final R esult [facility] [address] [place] [address] * (ABNORMAL) CBC W/O Differential (06/15/2025 12:20 AM EDT) WBC Count 10.94(H) 3.70 - 10.30 10*3/uL LAB HEMATOLOGY METHOD 06/15/2025 8:32 AM EDT [facility] RBC Count 4.94 4.60 - 6.10 10*6/uL LAB HEMATOLOGY METHOD 06/15/2025 8:32 AM EDT [facility] HGB 13.6(L) 13.7 - 17.5 g/dL LAB HEMATOLOGY METHOD 06/15/2025 8:32 AM EDT [facility] HCT 41.0 40.0 - 51.0 % LAB HEMATOLOGY METHOD 06/15/2025 8:32 AM EDT [facility] Platelet Count 142(L) 155 - 369 10*3/uL LAB HEMATOLOGY METHOD 06/15/2025 8:32 AM EDT [facility] MCV 87 79 - 98 fL LAB HEMATOLOGY METHOD 06/15/2025 8:32 AM EDT [facility] MCH 27.5 26.0 - 32.0 pg LAB HEMATOLOGY METHOD 06/15/2025 8:32 AM EDT [facility] MCHC 31.8 30.7 - 35.5 g/dL LAB HEMATOLOGY METHOD 06/15/2025 8:32 AM EDT [facility] RDW 15.6(H) 11.5 - 14.5 % LAB HEMATOLOGY METHOD 06/15/2025 8:32 AM EDT [facility] MPV 11.1 8.8 - 12.5 fL LAB HEMATOLOGY METHOD 06/15/2025 8:32 AM EDT [facility] nRBC 0.0 <=0.0 per 100 WBCs LAB HEMATOLOGY METHOD 06/15/2025 8:32 AM EDT [facility] Blood Venous blood specimen / Unknown Venipuncture / Unknown 06/15/2025 12:20 AM EDT 06/15/2025 12:26 AM EDT us Phillip Clark MD LAB BLOOD ORDERABLES Final R esult Performing Organization Address City/[facility]/ZIP Co de Phone Number [facility] [address] [place] [address] * Potassium, Plasma (06/15/2025 12:20 AM EDT) Potassium, Plasma 4.5 3.6 - 4.9 mmol/L 06/15/2025 12:51 AM EDT [facility] Blood Venous blood specimen / Unknown Venipuncture / Unknown 06/15/2025 12:20 AM EDT 06/15/2025 12:26 AM EDT us Phillip Clark MD LAB BLOOD ORDERABLES Final R esult Performing Organization Address City/[facility]/ZIP Co de Phone Number [facility] [address] [place] [address] * Hematocrit (06/15/2025 12:20 AM EDT) HCT 41.0 40.0 - 51.0 % LAB HEMATOLOGY METHOD 06/15/2025 12:36 AM EDT [facility] Blood Venous blood specimen / Unknown Venipuncture / Unknown 06/15/2025 12:20 AM EDT 06/15/2025 12:26 AM EDT us Phillip Clark MD LAB BLOOD ORDERABLES Final R esult [facility] [address] [place] [address] * (ABNORMAL) Hemoglobin (06/15/2025 12:20 AM EDT) HGB 13.6(L) 13.7 - 17.5 g/dL LAB HEMATOLOGY METHOD 06/15/2025 12:36 AM EDT [facility] Blood Venous blood specimen / Unknown Venipuncture / Unknown 06/15/2025 12:20 AM EDT 06/15/2025 12:26 AM EDT us Phillip Clark MD LAB BLOOD ORDERABLES Final R esult [facility] [address] [place] [address] * (ABNORMAL) Blood gas, arterial (06/15/2025 12:20 AM EDT) pH, Arterial 7.37 7.31 - 7.42 LAB HEMATOLOGY METHOD 06/15/2025 12:37 AM EDT [facility] pCO2, Arterial 40 32 - 45 mmHg LAB HEMATOLOGY METHOD 06/15/2025 12:37 AM EDT [facility] pO2, Arterial 65(L) >80 mmHg LAB HEMATOLOGY METHOD 06/15/2025 12:37 AM EDT [facility] SO2, Measured, Arterial 94 94 - 98 % LAB HEMATOLOGY METHOD 06/15/2025 12:37 AM EDT [facility] Base Excess, Arterial -1.8 -2.0 - 3.0 mmol/L LAB HEMATOLOGY METHOD 06/15/2025 12:37 AM EDT [facility] Bicarbonate, Calculated, Arterial 23 22 - 26 mmol/L LAB HEMATOLOGY METHOD 06/15/2025 12:37 AM EDT [facility] Hematocrit, Whole Blood 41.1 40.0 - 51.0 % LAB HEMATOLOGY METHOD 06/15/2025 12:37 AM EDT [facility] Sodium, Whole Blood 137 136 - 145 mmol/L LAB HEMATOLOGY METHOD 06/15/2025 12:37 AM EDT [facility] Potassium, Whole Blood 4.2 3.6 - 4.9 mmol/L LAB HEMATOLOGY METHOD 06/15/2025 12:37 AM EDT [facility] Chloride, Whole Blood 110(H) 97 - 107 mmol/L LAB HEMATOLOGY METHOD 06/15/2025 12:37 AM EDT [facility] Glucose, Whole Blood 140(H) 74 - 99 mg/dL LAB HEMATOLOGY METHOD 06/15/2025 12:37 AM EDT [facility] Ionized Calcium, Whole Blood 4.5(L) 4.6 - 5.1 mg/dL LAB HEMATOLOGY METHOD 06/15/2025 12:37 AM EDT [facility] Lactate, Arterial, Whole Blood 1.8(H) 0.5 - 1.6 mmol/L LAB HEMATOLOGY METHOD 06/15/2025 12:37 AM EDT [facility] Blood Arterial blood specimen / Unknown Arterial Puncture / Unknown 06/15/2025 12:20 AM EDT 06/15/2025 12:34 AM EDT us Phillip Clark MD LAB BLOOD ORDERABLES Final R esult [facility] [address] [place] [address] * (ABNORMAL) Blood gas, arterial (06/14/2025 8:04 PM EDT) pH, Arterial 7.35 7.31 - 7.42 LAB HEMATOLOGY METHOD 06/14/2025 8:19 PM EDT [facility] pCO2, Arterial 39 32 - 45 mmHg LAB HEMATOLOGY METHOD 06/14/2025 8:19 PM EDT [facility] pO2, Arterial 88 >80 mmHg LAB HEMATOLOGY METHOD 06/14/2025 8:19 PM EDT [facility] SO2, Measured, Arterial 98 94 - 98 % LAB HEMATOLOGY METHOD 06/14/2025 8:19 PM EDT [facility] Base Excess, Arterial -3.7(L) -2.0 - 3.0 mmol/L LAB HEMATOLOGY METHOD 06/14/2025 8:19 PM EDT [facility] Bicarbonate, Calculated, Arterial 22 22 - 26 mmol/L LAB HEMATOLOGY METHOD 06/14/2025 8:19 PM EDT [facility] Hematocrit, Whole Blood 44.7 40.0 - 51.0 % LAB HEMATOLOGY METHOD 06/14/2025 8:19 PM EDT [facility] Sodium, Whole Blood 138 136 - 145 mmol/L LAB HEMATOLOGY METHOD 06/14/2025 8:19 PM EDT [facility] Potassium, Whole Blood 4.5 3.6 - 4.9 mmol/L LAB HEMATOLOGY METHOD 06/14/2025 8:19 PM EDT [facility] Chloride, Whole Blood 109(H) 97 - 107 mmol/L LAB HEMATOLOGY METHOD 06/14/2025 8:19 PM EDT [facility] Glucose, Whole Blood 185(H) 74 - 99 mg/dL LAB HEMATOLOGY METHOD 06/14/2025 8:19 PM EDT [facility] Ionized Calcium, Whole Blood 4.5(L) 4.6 - 5.1 mg/dL LAB HEMATOLOGY METHOD 06/14/2025 8:19 PM EDT [facility] Lactate, Arterial, Whole Blood 3.0(H) 0.5 - 1.6 mmol/L LAB HEMATOLOGY METHOD 06/14/2025 8:19 PM EDT [facility] Blood Arterial blood specimen / Unknown Arterial Puncture / Unknown 06/14/2025 8:04 PM EDT 06/14/2025 8:14 PM EDT us Phillip Clark MD LAB BLOOD ORDERABLES Final R esult Performing Organization Address City/[facility] Co de Phone Number [facility] [address] [place] [address] * Potassium (06/14/2025 8:03 PM EDT) Potassium, Plasma 4.9 3.6 - 4.9 mmol/L 06/14/2025 8:33 PM EDT [facility] Blood Arterial blood specimen / Unknown Venipuncture / Unknown 06/14/2025 8:03 PM EDT 06/14/2025 8:11 PM EDT Phillip Clark MD LAB BLOOD ORDERABLES Final R esult Performing Organization Address City/[facility]/ZIP Co de Phone Number [facility] [address] [place] [address] * (ABNORMAL) Magnesium (06/14/2025 8:03 PM EDT) Magnesium, Plasma 2.7(H) 1.9 - 2.4 mg/dL 06/14/2025 8:40 PM EDT [facility] Blood Arterial blood specimen / Unknown Venipuncture / Unknown 06/14/2025 8:03 PM EDT 06/14/2025 8:11 PM EDT us Phillip Clark MD LAB BLOOD ORDERABLES Final R esult [facility] [address] [place] [address] * (ABNORMAL) CBC (06/14/2025 8:03 PM EDT) WBC Count 13.98(H) 3.70 - 10.30 10*3/uL LAB HEMATOLOGY METHOD 06/14/2025 8:20 PM EDT [facility] RBC Count 5.14 4.60 - 6.10 10*6/uL LAB HEMATOLOGY METHOD 06/14/2025 8:20 PM EDT [facility] HGB 14.5 13.7 - 17.5 g/dL LAB HEMATOLOGY METHOD 06/14/2025 8:20 PM EDT [facility] HCT 43.9 40.0 - 51.0 % LAB HEMATOLOGY METHOD 06/14/2025 8:20 PM EDT [facility] Platelet Count 158 155 - 369 10*3/uL LAB HEMATOLOGY METHOD 06/14/2025 8:20 PM EDT [facility] MCV 85 79 - 98 fL LAB HEMATOLOGY METHOD 06/14/2025 8:20 PM EDT [facility] MCH 28.2 26.0 - 32.0 pg LAB HEMATOLOGY METHOD 06/14/2025 8:20 PM EDT [facility] MCHC 33.0 30.7 - 35.5 g/dL LAB HEMATOLOGY METHOD 06/14/2025 8:20 PM EDT [facility] RDW 14.9(H) 11.5 - 14.5 % LAB HEMATOLOGY METHOD 06/14/2025 8:20 PM EDT [facility] MPV 10.8 8.8 - 12.5 fL LAB HEMATOLOGY METHOD 06/14/2025 8:20 PM EDT [facility] nRBC 0.0 <=0.0 per 100 WBCs LAB HEMATOLOGY METHOD 06/14/2025 8:20 PM EDT [facility] Blood Arterial blood specimen / Unknown Venipuncture / Unknown 06/14/2025 8:03 PM EDT 06/14/2025 8:11 PM EDT us Phillip Clark MD LAB BLOOD ORDERABLES Final R esult [facility] [address] [place] [address] * (ABNORMAL) Basic metabolic panel (06/14/2025 8:03 PM EDT) Glucose, Plasma 194(H) 74 - 99 mg/dL 06/14/2025 8:40 PM EDT [facility] BUN, Plasma 16 8 - 23 mg/dL 06/14/2025 8:40 PM EDT [facility] Creatinine, Plasma 0.85 0.70 - 1.20 mg/dL 06/14/2025 8:40 PM EDT [facility] BUN/Creatinine Ratio 19 06/14/2025 8:40 PM EDT [facility] Sodium, Plasma 139 136 - 145 mmol/L 06/14/2025 8:40 PM EDT [facility] Potassium, Plasma 5.0(H) 3.6 - 4.9 mmol/L 06/14/2025 8:40 PM EDT [facility] Chloride, Plasma 109(H) 97 - 107 mmol/L 06/14/2025 8:40 PM EDT [facility] CO2, Plasma 20(L) 22 - 29 mmol/L 06/14/2025 8:40 PM EDT [facility] Anion Gap 10 6 - 16 mmol/L 06/14/2025 8:40 PM EDT [facility] Total Calcium, Plasma 8.2(L) 8.9 - 10.2 mg/dL 06/14/2025 8:40 PM EDT [facility] eGFRcr 94.1 mL/min/1.7 3m*2 06/14/2025 8:40 PM EDT [facility] Comment:Reported eGFRcr in m L/min/1.73m2 is based the CKD-EPI 2020 equation that does not use a race coefficient. Blood Arterial blood specimen / Unknown Venipuncture / Unknown 06/14/2025 8:03 PM EDT 06/14/2025 8:11 PM EDT us Phillip Clark MD LAB BLOOD ORDERABLES Final R esult [facility] [address] [place] [address] * (ABNORMAL) Blood gas panel, arterial (06/14/2025 6:47 PM EDT) pH, Arterial 7.30(L) 7.31 - 7.42 LAB HEMATOLOGY METHOD 06/14/2025 6:57 PM EDT [facility] pCO2, Arterial 41 32 - 45 mmHg LAB HEMATOLOGY METHOD 06/14/2025 6:57 PM EDT [facility] pO2, Arterial 70(L) >80 mmHg LAB HEMATOLOGY METHOD 06/14/2025 6:57 PM EDT [facility] SO2, Measured, Arterial 94 94 - 98 % LAB HEMATOLOGY METHOD 06/14/2025 6:57 PM EDT [facility] Base Excess, Arterial -5.6(L) -2.0 - 3.0 mmol/L LAB HEMATOLOGY METHOD 06/14/2025 6:57 PM EDT [facility] Bicarbonate, Calculated, Arterial 21(L) 22 - 26 mmol/L LAB HEMATOLOGY METHOD 06/14/2025 6:57 PM EDT [facility] Hematocrit, Whole Blood 45.5 40.0 - 51.0 % LAB HEMATOLOGY METHOD 06/14/2025 6:57 PM EDT [facility] Sodium, Whole Blood 138 136 - 145 mmol/L LAB HEMATOLOGY METHOD 06/14/2025 6:57 PM EDT [facility] Potassium, Whole Blood 4.4 3.6 - 4.9 mmol/L LAB HEMATOLOGY METHOD 06/14/2025 6:57 PM EDT [facility] Chloride, Whole Blood 109(H) 97 - 107 mmol/L LAB HEMATOLOGY METHOD 06/14/2025 6:57 PM EDT [facility] Glucose, Whole Blood 209(H) 74 - 99 mg/dL LAB HEMATOLOGY METHOD 06/14/2025 6:57 PM EDT [facility] Ionized Calcium, Whole Blood 4.6 4.6 - 5.1 mg/dL LAB HEMATOLOGY METHOD 06/14/2025 6:57 PM EDT [facility] Lactate, Arterial, Whole Blood 3.9(H) 0.5 - 1.6 mmol/L LAB HEMATOLOGY METHOD 06/14/2025 6:57 PM EDT [facility] Blood Arterial blood specimen / Unknown Arterial Puncture / Unknown 06/14/2025 6:47 PM EDT 06/14/2025 6:56 PM EDT us Phillip Clark MD LAB BLOOD ORDERABLES Final R esult [facility] [address] [place] [address] * AL CRITICAL CARE, E/M 30-74 MINUTES (06/14/2025 5:35 [...] LAB HEMATOLOGY METHOD 06/14/2025 4:12 PM EDT [facility] pCO2, Arterial 43 32 - 45 mmHg LAB HEMATOLOGY METHOD 06/14/2025 4:12 PM EDT [facility] pO2, Arterial 126 >80 mmHg LAB HEMATOLOGY METHOD 06/14/2025 4:12 PM EDT [facility] SO2, Measured, Arterial 99(H) 94 - 98 % LAB HEMATOLOGY METHOD 06/14/2025 4:12 PM EDT [facility] Base Excess, Arterial -5.8(L) -2.0 - 3.0 mmol/L LAB HEMATOLOGY METHOD 06/14/2025 4:12 PM EDT [facility] Bicarbonate, Calculated, Arterial 21(L) 22 - 26 mmol/L LAB HEMATOLOGY METHOD 06/14/2025 4:12 PM EDT [facility] Hematocrit, Whole Blood 43.9 40.0 - 51.0 % LAB HEMATOLOGY METHOD 06/14/2025 4:12 PM EDT [facility] Sodium, Whole Blood 139 136 - 145 mmol/L LAB HEMATOLOGY METHOD 06/14/2025 4:12 PM EDT [facility] Potassium, Whole Blood 3.8 3.6 - 4.9 mmol/L LAB HEMATOLOGY METHOD 06/14/2025 4:12 PM EDT [facility] Chloride, Whole Blood 109(H) 97 - 107 mmol/L LAB HEMATOLOGY METHOD 06/14/2025 4:12 PM EDT [facility] Glucose, Whole Blood 179(H) 74 - 99 mg/dL LAB HEMATOLOGY METHOD 06/14/2025 4:12 PM EDT [facility] Ionized Calcium, Whole Blood 4.6 4.6 - 5.1 mg/dL LAB HEMATOLOGY METHOD 06/14/2025 4:12 PM EDT [facility] Lactate, Arterial, Whole Blood 4.3(H) 0.5 - 1.6 mmol/L LAB HEMATOLOGY METHOD 06/14/2025 4:12 PM EDT [facility] Blood Arterial blood specimen / Unknown Arterial Puncture / Unknown 06/14/2025 3:57 PM EDT 06/14/2025 4:11 PM EDT us Phillip Clark MD LAB BLOOD ORDERABLES Final R esult [facility] [address] [place] [address] * (ABNORMAL) Blood gas panel with oximetry, mixed venous (06/14/2025 3:00 PM EDT) pH, Mixed Venous 7.28(L) 7.32 - 7.43 LAB HEMATOLOGY METHOD 06/14/2025 3:24 PM EDT [facility] pCO2, Mixed Venous 47 40 - 55 mmHg LAB HEMATOLOGY METHOD 06/14/2025 3:24 PM EDT [facility] pO2, Mixed Venous 54(H) 25 - 40 mmHg LAB HEMATOLOGY METHOD 06/14/2025 3:24 PM EDT [facility] SO2, Measured, Mixed Venous 84(H) 65 - 80 % LAB HEMATOLOGY METHOD 06/14/2025 3:24 PM EDT [facility] Bicarbonate, Calculated, Mixed Venous 22 22 - 26 mmol/L LAB HEMATOLOGY METHOD 06/14/2025 3:24 PM EDT [facility] Base Excess, Mixed Venous -4.7(L) -2.0 - 3.0 mmol/L LAB HEMATOLOGY METHOD 06/14/2025 3:24 PM EDT [facility] Hematocrit, Whole Blood 43.0 40.0 - 51.0 % LAB HEMATOLOGY METHOD 06/14/2025 3:24 PM EDT [facility] Sodium, Whole Blood 139 136 - 145 mmol/L LAB HEMATOLOGY METHOD 06/14/2025 3:24 PM EDT [facility] Potassium, Whole Blood 3.7 3.6 - 4.9 mmol/L LAB HEMATOLOGY METHOD 06/14/2025 3:24 PM EDT [facility] Chloride, Whole Blood 110(H) 97 - 107 mmol/L LAB HEMATOLOGY METHOD 06/14/2025 3:24 PM EDT [facility] Ionized Calcium, Whole Blood 4.6 4.6 - 5.1 mg/dL LAB HEMATOLOGY METHOD 06/14/2025 3:24 PM EDT [facility] Glucose, Whole Blood 149(H) 74 - 99 mg/dL LAB HEMATOLOGY METHOD 06/14/2025 3:24 PM EDT [facility] Oxyhemoglobin, Mixed Venous, Whole Blood 81.9(H) 40.0 - 70.0 % LAB HEMATOLOGY METHOD 06/14/2025 3:24 PM EDT [facility] Hemoglobin Reduced, Mixed Venous, Whole Blood 16.1 % LAB HEMATOLOGY METHOD 06/14/2025 3:24 PM EDT [facility] Total Hemoglobin, Mixed Venous, Whole Blood 14.0 13.7 - 17.5 g/dL LAB HEMATOLOGY METHOD 06/14/2025 3:24 PM EDT [facility] Blood Mixed venous blood specimen / Unknown Venipuncture / Unknown 06/14/2025 3:00 PM EDT 06/14/2025 3:23 PM EDT us Phillip Clark MD LAB BLOOD ORDERABLES Final R esult [facility] [address] [place] [address] * XR Abdomen 1 View (06/14/2025 2:57 [...] Detected Not Detected 06/15/2025 12:46 PM EDT [facility] Swab (Axilla and Groin) Non-blood Collection / Unknown 06/14/2025 2:37 PM EDT 06/14/2025 3:10 PM EDT Narrative [facility] - 06/15/2025 12:46 PM EDT This PCR assay was developed and its performance characteristics determined by [facility] as appropriate for clinical purposes. This assay has not been cleared or approved by the FDA, but is performed in a CLIA regulated laboratory that is qualified to perform high-complexity testing. us Phillip Clark MD LAB MICROBIOLOGY - GENERAL O RDERABLES Final Result [facility] [address] [place] [address] * Multi Drug Resistance Test (06/14/2025 2:37 PM EDT) Culture No growth at day 1 06/15/2025 4:03 PM EDT [facility] Swab (Nares and Smita Rectal) Non-blood Collection / Unknown 06/14/2025 2:37 PM EDT 06/14/2025 3:10 PM EDT Narrative [facility] - 06/15/2025 4:03 PM EDT This test was developed and its performance characteristics determined by the [facility]. Although the media is FDA-approved, it is not FDA-approved for all specimen types submitted. The FDA has determined that such clearance or approval is not necessary. This test is used for surveillance purposes. It should not be regarded as investigational or for research. The [facility] is certified under the Clinical Laboratory Improvement Amendments of 1988 (CLIA-88) as qualified to perform high complexity clinical laboratory testing. Phillip Clark MD LAB MICROBIOLOGY - GENERAL O RDERABLES Final Result [facility] [address] [place] [address] * (ABNORMAL) Blood gas, arterial (06/14/2025 2:37 PM EDT) pH, Arterial 7.31 7.31 - 7.42 LAB HEMATOLOGY METHOD 06/14/2025 2:58 PM EDT [facility] pCO2, Arterial 42 32 - 45 mmHg LAB HEMATOLOGY METHOD 06/14/2025 2:58 PM EDT [facility] pO2, Arterial 154 >80 mmHg LAB HEMATOLOGY METHOD 06/14/2025 2:58 PM EDT [facility] SO2, Measured, Arterial 100(H) 94 - 98 % LAB HEMATOLOGY METHOD 06/14/2025 2:58 PM EDT [facility] Base Excess, Arterial -5.1(L) -2.0 - 3.0 mmol/L LAB HEMATOLOGY METHOD 06/14/2025 2:58 PM EDT [facility] Bicarbonate, Calculated, Arterial 21(L) 22 - 26 mmol/L LAB HEMATOLOGY METHOD 06/14/2025 2:58 PM EDT [facility] Hematocrit, Whole Blood 43.5 40.0 - 51.0 % LAB HEMATOLOGY METHOD 06/14/2025 2:58 PM EDT [facility] Sodium, Whole Blood 139 136 - 145 mmol/L LAB HEMATOLOGY METHOD 06/14/2025 2:58 PM EDT [facility] Potassium, Whole Blood 3.6 3.6 - 4.9 mmol/L LAB HEMATOLOGY METHOD 06/14/2025 2:58 PM EDT [facility] Chloride, Whole Blood 110(H) 97 - 107 mmol/L LAB HEMATOLOGY METHOD 06/14/2025 2:58 PM EDT [facility] Glucose, Whole Blood 131(H) 74 - 99 mg/dL LAB HEMATOLOGY METHOD 06/14/2025 2:58 PM EDT [facility] Ionized Calcium, Whole Blood 4.7 4.6 - 5.1 mg/dL LAB HEMATOLOGY METHOD 06/14/2025 2:58 PM EDT [facility] Lactate, Arterial, Whole Blood 5.0(H) 0.5 - 1.6 mmol/L LAB HEMATOLOGY METHOD 06/14/2025 2:58 PM EDT [facility] Blood Arterial blood specimen / Unknown Arterial Puncture / Unknown 06/14/2025 2:37 PM EDT 06/14/2025 2:57 PM EDT us Phillip Clark MD LAB BLOOD ORDERABLES Final R esult [facility] [address] [place] [address] * ECG Adult - Upon Admissoin to CVICU (06/14/2025 2:36 PM EDT) EKG DIAGNOSIS CLASS Abnormal MUSE ECG Ventricular Rate 61 BPM MUSE ECG Atrial Rate 61 BPM MUSE ECG AL Interval 176 ms MUSE ECG QRSD Interval 154 ms MUSE ECG QT Interval 520 ms MUSE ECG QTC Interval 523 ms MUSE ECG P [place] 58 degrees MUSE ECG R [place] 113 degrees MUSE ECG T Wave [place] -67 degrees MUSE ECG Diagnosis Sinus rhythm with occasional ventricular-paced complexes MUSE ECG Diagnosis Suspect unspecified pacemaker failure MUSE ECG Diagnosis Nonspecific intraventricular block MUSE ECG Diagnosis Minimal voltage criteria for LVH, may be normal variant ( [place] product ) MUSE ECG Diagnosis Abnormal ECG MUSE ECG Diagnosis MUSE ECG Diagnosis Confirmed by Brenton Mejia ([id number]) on 06/14/2025 3:39:18 PM MUSE ECG 06/14/2025 2:36 PM EDT 06/14/2025 3:39 PM EDT Phillip Clark MD ECG ORDERABLES Final Result Performing Organization Address City/[facility]/ZIP Co de Phone Number MUSE ECG * Potassium, Plasma (06/14/2025 2:36 PM EDT) [facility] Potassium, Plasma 3.8 3.6 - 4.9 mmol/L 06/14/2025 4:13 PM EDT [facility] Comment:Hemolyzed, result ma y be falsely increased. Blood Venous blood specimen / Unknown Venipuncture / Unknown 06/14/2025 2:36 PM EDT 06/14/2025 3:20 PM EDT Phillip Clark MD LAB BLOOD ORDERABLES Final R esult Performing Organization Address [facility] Co de Phone Number [facility] [address] [place] [address] * Hematocrit (06/14/2025 2:36 PM EDT) [facility] HCT 42.6 40.0 - 51.0 % LAB HEMATOLOGY METHOD 06/14/2025 4:38 PM EDT [facility] Blood Venous blood specimen / Unknown Venipuncture / Unknown 06/14/2025 2:36 PM EDT 06/14/2025 4:17 PM EDT Phillip Clark MD LAB BLOOD ORDERABLES Final R esult Performing Organization Address City/[facility] Co de Phone Number [facility] [address] [place] [address] * Hemoglobin (06/14/2025 2:36 PM EDT) HGB 13.9 13.7 - 17.5 g/dL LAB HEMATOLOGY METHOD 06/14/2025 4:38 PM EDT [facility] Blood Venous blood specimen / Unknown Venipuncture / Unknown 06/14/2025 2:36 PM EDT 06/14/2025 4:17 PM EDT Phillip Clark MD LAB BLOOD ORDERABLES Final R esult Performing Organization Address City/[facility]/ZIP Co de Phone Number [facility] [address] [place] [address] * APTT (06/14/2025 2:36 PM EDT) Pathologist [facility] aPTT 29 25 - 35 sec LAB COAGULATION METHOD 06/14/2025 4:11 PM EDT [facility] Blood Venous blood specimen / Unknown Venipuncture / Unknown 06/14/2025 2:36 PM EDT 06/14/2025 3:18 PM EDT Phillip Clark MD LAB BLOOD ORDERABLES Final R esult Performing Organization Address City/[facility] Co de Phone Number [facility] [address] [place] [address] * (ABNORMAL) Protime-INR (06/14/2025 2:36 PM EDT) Pathologist [facility] Prothrombin Time 16.6(H) 12.0 - 14.3 sec LAB COAGULATION METHOD 06/14/2025 4:11 PM EDT [facility] INR 1.3(H) 0.9 - 1.1 LAB COAGULATION METHOD 06/14/2025 4:11 PM EDT [facility] Blood Venous blood specimen / Unknown Venipuncture / Unknown 06/14/2025 2:36 PM EDT 06/14/2025 3:18 PM EDT Narrative [facility] - 06/14/2025 4:11 PM EDT OPTIMAL INR RANGES FOR PATIENT ON ORAL ANTICOAGULANT THERAPY Prevention of venous thromboembolism INR 2.0 to 3.0 In patients with heart disease: Atrial fibrillation INR 2.0 to 3.0 Valvular heart disease INR 2.0 to 3.0 Tissue heart valves INR 2.0 to 3.0 Mechanical prosthetic valves INR 2.5 to 3.5 Prevention of recurrent LA INR 2.5 to 3.5 Phillip Clark MD LAB BLOOD ORDERABLES Final R esult Performing Organization Address [facility]/[place] [address] * (ABNORMAL) Phosphorus (06/14/2025 2:36 PM EDT) Phosphorus, Plasma 2.3(L) 2.5 - 4.5 mg/dL 06/14/2025 4:13 PM EDT [facility] Blood Venous blood specimen / Unknown Venipuncture / Unknown 06/14/2025 2:36 PM EDT 06/14/2025 3:20 PM EDT Phillip Clark MD LAB BLOOD ORDERABLES Final R esult Performing Organization Address [facility] [place] [address] * (ABNORMAL) Magnesium (06/14/2025 2:36 PM EDT) [facility] Signature Magnesium, Plasma 3.2(H) 1.9 - 2.4 mg/dL 06/14/2025 6:55 PM EDT [facility] Blood Venous blood specimen / Unknown Venipuncture / Unknown 06/14/2025 2:36 PM EDT 06/14/2025 3:20 PM EDT Phillip Clark MD LAB BLOOD ORDERABLES Final R esult Performing Organization Address City/[facility]/[place] [address] * (ABNORMAL) Basic metabolic panel (06/14/2025 2:36 PM EDT) Glucose, Plasma 134(H) 74 - 99 mg/dL 06/14/2025 4:13 PM EDT [facility] BUN, Plasma 14 8 - 23 mg/dL 06/14/2025 4:13 PM EDT [facility] Creatinine, Plasma 0.83 0.70 - 1.20 mg/dL 06/14/2025 4:13 PM EDT [facility] BUN/Creatinine Ratio 17 06/14/2025 4:13 PM EDT [facility] Sodium, Plasma 140 136 - 145 mmol/L 06/14/2025 4:13 PM EDT [facility] Potassium, Plasma 3.8 3.6 - 4.9 mmol/L 06/14/2025 4:13 PM EDT [facility] Comment:Hemolyzed, result ma y be falsely increased. Chloride, Plasma 108(H) 97 - 107 mmol/L 06/14/2025 4:13 PM EDT [facility] CO2, Plasma 19(L) 22 - 29 mmol/L 06/14/2025 4:13 PM EDT [facility] Anion Gap 13 6 - 16 mmol/L 06/14/2025 4:13 PM EDT [facility] Total Calcium, Plasma 8.3(L) 8.9 - 10.2 mg/dL 06/14/2025 4:13 PM EDT [facility] eGFRcr 94.7 mL/min/1.7 3m*2 06/14/2025 4:13 PM EDT [facility] Comment:Reported eGFRcr in m L/min/1.73m2 is based the CKD-EPI 2020 equation that does not use a race coefficient. Blood Venous blood specimen / Unknown Venipuncture / Unknown 06/14/2025 2:36 PM EDT 06/14/2025 3:20 PM EDT us Phillip Clark MD LAB BLOOD ORDERABLES Final R esult [facility] [address] [place] [address] * (ABNORMAL) CBC (06/14/2025 2:36 PM EDT) WBC Count 15.83(H) 3.70 - 10.30 10*3/uL LAB HEMATOLOGY METHOD 06/14/2025 4:38 PM EDT [facility] RBC Count 4.98 4.60 - 6.10 10*6/uL LAB HEMATOLOGY METHOD 06/14/2025 4:38 PM EDT [facility] HGB 13.9 13.7 - 17.5 g/dL LAB HEMATOLOGY METHOD 06/14/2025 4:38 PM EDT [facility] HCT 42.6 40.0 - 51.0 % LAB HEMATOLOGY METHOD 06/14/2025 4:38 PM EDT [facility] Platelet Count 160 155 - 369 10*3/uL LAB HEMATOLOGY METHOD 06/14/2025 4:38 PM EDT [facility] MCV 86 79 - 98 fL LAB HEMATOLOGY METHOD 06/14/2025 4:38 PM EDT [facility] MCH 27.9 26.0 - 32.0 pg LAB HEMATOLOGY METHOD 06/14/2025 4:38 PM EDT [facility] MCHC 32.6 30.7 - 35.5 g/dL LAB HEMATOLOGY METHOD 06/14/2025 4:38 PM EDT [facility] RDW 15.2(H) 11.5 - 14.5 % LAB HEMATOLOGY METHOD 06/14/2025 4:38 PM EDT [facility] MPV 10.3 8.8 - 12.5 fL LAB HEMATOLOGY METHOD 06/14/2025 4:38 PM EDT [facility] nRBC 0.0 <=0.0 per 100 WBCs LAB HEMATOLOGY METHOD 06/14/2025 4:38 PM EDT [facility] Blood Venous blood specimen / Unknown Venipuncture / Unknown 06/14/2025 2:36 PM EDT 06/14/2025 4:17 PM EDT us Phillip Clark MD LAB BLOOD ORDERABLES Final R esult [facility] [address] [place] [address] * (ABNORMAL) POCT arterial blood gas gem (06/14/2025 2:00 PM EDT) pH, Arterial 7.35 7.31 - 7.42 06/14/2025 2:02 PM EDT [facility] pCO2, Arterial 38 32 - 45 mm Hg 06/14/2025 2:02 PM [facility] pO2, Arterial 376 >80 mm Hg 06/14/2025 2:02 PM [facility] SO2, Arterial 100(H) 94 - 98 % 06/14/2025 2:02 PM EDT [facility] Base Excess, Arterial -4.2(L) -2 - 3 mmol/L 06/14/2025 2:02 PM [facility] HCO3, Arterial 21.0(L) 22 - 26 mmol/L 06/14/2025 2:02 PM T [facility] Total Hemoglobin, Arterial, Whole Blood 14.5 13.7 - 17.5 g/dL 06/14/2025 2:02 PM [facility] Hematocrit, Arterial 44.0 40 - 51.0 % 06/14/2025 2:02 PM [facility] Sodium, Arterial 136 136 - 145 mmol/L 06/14/2025 2:02 PM [facility] Potassium, Arterial 3.4(L) 3.6 - 4.9 mmol/L 06/14/2025 2:02 PM [facility] Chloride, Whole Blood 105 97 - 107 mmol/L 06/14/2025 2:02 PM [facility] Glucose, Arterial 138(H) 74 - 99 mg/dL 06/14/2025 2:02 PM [facility] Ionized Calcium, Arterial 4.9 4.6 - 5.1 mg/dL 06/14/2025 2:02 PM [facility] Lactate, Arterial 4.2(H) 0.5 - 1.6 mmol/L 06/14/2025 2:02 PM T [facility] Body Temperature 37.0 Celsius 06/14/2025 2:02 PM [facility] pH, Temp Corrected, Arterial 7.35 7.31 - 7.42 06/14/2025 2:02 PM [facility] pCO2, Temp Corrected, Arterial 38 32 - 45 mm Hg 06/14/2025 2:02 PM EDT [facility] pO2, Temp Corrected, Arterial 376 >80 mm Hg 06/14/2025 2:02 PM EDT [facility] [employer] Clerk ID Ricki Zamarripa 06/14/2025 2:02 PM EDT [facility] Blood Whole blood specimen / Unknown 06/14/2025 2:00 PM EDT 06/14/2025 2:02 PM EDT Phillip Clark MD LAB POINT OF CARE TE ST DOCKED DEVICE UNSOLICITED RESULTS Final Result [facility] [address] [place] [address] * (ABNORMAL) POCT arterial blood gas gem (06/14/2025 1:22 PM EDT) pH, Arterial 7.34 7.31 - 7.42 06/14/2025 1:23 PM EDT [facility] pCO2, Arterial 41 32 - 45 mm Hg 06/14/2025 1:23 PM EDT [facility] pO2, Arterial 518 >80 mm Hg 06/14/2025 1:23 PM EDT [facility] SO2, Arterial 100(H) 94 - 98 % 06/14/2025 1:23 PM EDT [facility] Base Excess, Arterial -3.5(L) -2 - 3 mmol/L 06/14/2025 1:23 PM EDT [facility] HCO3, Arterial 22.1 22 - 26 mmol/L 06/14/2025 1:23 PM EDT [facility] Total Hemoglobin, Arterial, Whole Blood 13.2(L) 13.7 - 17.5 g/dL 06/14/2025 1:23 PM EDT [facility] Hematocrit, Arterial 40.0 40 - 51.0 % 06/14/2025 1:23 PM EDT [facility] Sodium, Arterial 139 136 - 145 mmol/L 06/14/2025 1:23 PM EDT [facility] Potassium, Arterial 3.3(L) 3.6 - 4.9 mmol/L 06/14/2025 1:23 PM EDT [facility] Chloride, Whole Blood 104 97 - 107 mmol/L 06/14/2025 1:23 PM EDT [facility] Glucose, Arterial 137(H) 74 - [...] 7.31 - 7.42 06/14/2025 1:23 PM EDT [facility] pCO2, Temp Corrected, Arterial 41 32 - 45 mm Hg 06/14/2025 1:23 PM EDT [facility] pO2, Temp Corrected, Arterial 518 >80 mm Hg 06/14/2025 1:23 PM EDT [facility] [employer] Clerk ID Ricki Zamarripa 06/14/2025 1:23 PM EDT [facility] Blood Whole blood specimen / Unknown 06/14/2025 1:22 PM EDT 06/14/2025 1:23 PM EDT us Phillip Clark MD LAB POINT OF CARE TE ST DOCKED DEVICE UNSOLICITED RESULTS Final Result Performing Organization Address City/State/[facility] Co de Phone Number [facility] [address] [place] [id number] * (ABNORMAL) POCT arterial blood gas gem (06/14/2025 12:52 PM EDT) pH, Arterial 7.40 7.31 - 7.42 06/14/2025 12:54 PM EDT [facility] pCO2, Arterial 35 32 - 45 mm Hg 06/14/2025 12:54 PM EDT [facility] pO2, Arterial 399 >80 mm [...] - 17.5 g/dL 06/14/2025 12:54 PM EDT [facility] Hematocrit, Arterial 35.0(L) 40 - 51.0 % 06/14/2025 12:54 PM EDT [facility] Sodium, Arterial 134(L) 136 - 145 mmol/L 06/14/2025 12:54 PM EDT [facility] Potassium, Arterial 4.2 3.6 - 4.9 mmol/L 06/14/2025 12:54 PM EDT [facility] Chloride, Whole Blood 107 97 - 107 mmol/L 06/14/2025 12:54 PM EDT [facility] Glucose, Arterial 148(H) 74 - 99 mg/dL 06/14/2025 12:54 PM EDT [facility] Ionized Calcium, Arterial 4.1(L) 4.6 - 5.1 mg/dL 06/14/2025 12:54 PM EDT [facility] Lactate, Arterial 2.2(H) 0.5 - 1.6 mmol/L 06/14/2025 12:54 PM EDT [facility] Body Temperature 37.0 Celsius 06/14/2025 12:54 PM EDT [facility] pH, Temp Corrected, Arterial 7.40 7.31 - 7.42 06/14/2025 12:54 PM EDT [facility] pCO2, Temp Corrected, Arterial 35 32 - 45 mm Hg 06/14/2025 12:54 PM EDT [facility] pO2, Temp Corrected, Arterial 399 >80 mm Hg 06/14/2025 12:54 PM EDT [facility] [employer] Clerk ID Jean Claude Staley 06/14/2025 12:54 PM EDT [facility] Blood Whole blood specimen / Unknown 06/14/2025 12:52 PM EDT 06/14/2025 12:54 PM EDT us Phillip Clark MD LAB POINT OF CARE TE ST DOCKED DEVICE UNSOLICITED RESULTS Final Result Performing Organization Address City/State/[facility] Co de Phone Number [facility] [address] [place] [phone] * POCT ACT (06/14/2025 12:43 PM EDT) [facility] ACT+ (HIGH RANGE) 98 68 - 600 Seconds 06/14/2025 12:49 PM EDT [facility] [employer] Clerk ID Vick Dupont 06/14/2025 12:49 PM EDT [facility] ACT Device ID [id number] 06/14/2025 12:49 PM EDT [facility] Comment 06/14/2025 12:49 PM EDT [facility] Comment: ACT performed by [...] UNSOLICITED RESULTS Final Result Performing Organization Address City/State/[facility] Co de Phone Number [facility] [address] [facility] [address] [place] [address] * (ABNORMAL) POCT arterial blood gas gem (06/14/2025 12:16 PM EDT) [facility] pH, Arterial 7.42 7.31 - 7.42 06/14/2025 12:19 PM EDT [facility] pCO2, Arterial 36 32 - 45 mm Hg 06/14/2025 12:19 PM EDT [facility] pO2, Arterial 358 >80 mm Hg 06/14/2025 12:19 PM EDT [facility] SO2, Arterial 99(H) 94 - 98 % 06/14/2025 12:19 PM EDT [facility] Base Excess, Arterial -0.8 -2 - 3 mmol/L 06/14/2025 12:19 PM EDT [facility] HCO3, Arterial 23.4 22 - 26 mmol/L 06/14/2025 12:19 PM EDT [facility] Total Hemoglobin, Arterial, Whole Blood 11.3(L) 13.7 - 17.5 g/dL 06/14/2025 12:19 PM EDT [facility] Hematocrit, Arterial 34.0(L) 40 - 51.0 % 06/14/2025 12:19 PM EDT [facility] Sodium, Arterial 134(L) 136 - 145 mmol/L 06/14/2025 12:19 PM EDT [facility] Potassium, Arterial 5.7(H) 3.6 - 4.9 mmol/L 06/14/2025 12:19 PM EDT [facility] Chloride, Whole Blood 105 97 - 107 mmol/L 06/14/2025 12:19 PM EDT [facility] Glucose, Arterial 119(H) 74 - 99 mg/dL 06/14/2025 12:19 PM EDT [facility] Ionized Calcium, Arterial 4.0(L) 4.6 - 5.1 mg/dL 06/14/2025 12:19 PM EDT [facility] Lactate, Arterial 1.6 0.5 - 1.6 mmol/L 06/14/2025 12:19 PM EDT [facility] Body Temperature 37.0 Celsius 06/14/2025 12:19 PM EDT [facility] pH, Temp Corrected, Arterial 7.42 7.31 - 7.42 06/14/2025 12:19 PM EDT [facility] pCO2, Temp Corrected, Arterial 36 32 - 45 mm Hg 06/14/2025 12:19 PM EDT [facility] pO2, Temp Corrected, Arterial 358 >80 mm Hg 06/14/2025 12:19 PM EDT [facility] [employer] Clerk ID Vick Dupont 06/14/2025 12:19 PM EDT [facility] Blood Whole blood specimen / Unknown 06/14/2025 12:16 PM EDT 06/14/2025 12:19 PM EDT us Phillip Clark MD LAB POINT OF CARE TE ST DOCKED DEVICE UNSOLICITED RESULTS Final Result [facility] [address] [place] [address] * (ABNORMAL) POCT arterial blood gas gem (06/14/2025 12:06 PM EDT) pH, Arterial 7.39 7.31 - 7.42 06/14/2025 12:09 PM EDT [facility] pCO2, Arterial 40 32 - 45 mm Hg 06/14/2025 12:09 PM EDT [facility] pO2, Arterial 378 >80 mm Hg 06/14/2025 12:09 PM EDT [facility] SO2, Arterial 100(H) 94 - 98 % 06/14/2025 12:09 PM EDT [facility] Base Excess, Arterial -0.7 -2 - 3 mmol/L 06/14/2025 12:09 PM EDT [facility] HCO3, Arterial 24.2 22 - 26 mmol/L 06/14/2025 12:09 PM EDT [facility] Total Hemoglobin, Arterial, Whole Blood 11.5(L) 13.7 - 17.5 g/dL 06/14/2025 12:09 PM T [facility] Hematocrit, Arterial 35.0(L) 40 - 51.0 % 06/14/2025 12:09 PM T [facility] Sodium, Arterial 134(L) 136 - 145 mmol/L 06/14/2025 12:09 PM T [facility] Potassium, Arterial 5.0(H) 3.6 - 4.9 mmol/L 06/14/2025 12:09 PM [facility] Chloride, Whole Blood 105 97 - 107 mmol/L 06/14/2025 12:09 PM [facility] Glucose, Arterial 123(H) 74 - 99 mg/dL 06/14/2025 12:09 PM [facility] Ionized Calcium, Arterial 4.2(L) 4.6 - 5.1 mg/dL 06/14/2025 12:09 PM T [facility] Lactate, Arterial 1.2 0.5 - 1.6 mmol/L 06/14/2025 12:09 PM EDT [facility] Body Temperature 37.0 Celsius 06/14/2025 12:09 PM T [facility] pH, Temp Corrected, Arterial 7.39 7.31 - 7.42 06/14/2025 12:09 PM EDT [facility] pCO2, Temp Corrected, Arterial 40 32 - 45 mm Hg 06/14/2025 12:09 PM EDT [facility] pO2, Temp Corrected, Arterial 378 >80 mm Hg 06/14/2025 12:09 PM EDT [facility] [employer] Clerk ID Vick Dupont 06/14/2025 12:09 PM EDT [facility] Blood Whole blood specimen / Unknown 06/14/2025 12:06 PM EDT 06/14/2025 12:09 PM EDT us Phillip Clark MD LAB POINT OF CARE TE ST DOCKED DEVICE UNSOLICITED RESULTS Final Result Performing Organization Address City/[facility]/ZIP Co de Phone Number [facility] [address] [place] [address] * (ABNORMAL) QPLUS (06/14/2025 11:55 AM EDT) [...] Seconds 06/14/2025 12:12 PM EDT [facility] Warehouse [employer] And Inventory Clerk ID Ricki Zamarripa 06/14/2025 12:12 PM EDT [facility] Device ID [id number] 06/14/2025 12:12 PM EDT [facility] Whole Blood 06/14/2025 11:5 5 AM EDT 06/14/2025 12:12 PM EDT Narrative [facility] - 06/14/2025 12:[address]: No Clot Detected us Phillip Clark MD LAB POINT OF CARE TE ST DOCKED DEVICE UNSOLICITED RESULTS Final Result Performing Organization Address City/[facility]/ZIP Co de Phone Number [facility] [address] [place] [address] * POCT ACT (06/14/2025 11:54 AM EDT) ACT+ (HIGH RANGE) 510 68 - 600 Seconds 06/14/2025 12:07 PM EDT [facility] Warehouse [employer] And Inventory Clerk ID Vick Dupont 06/14/2025 12:07 PM EDT [facility] ACT Device ID [id number] 06/14/2025 12:07 PM EDT [facility] Comment 06/14/2025 12:07 PM EDT [facility] Comment: ACT performed by [...] UNSOLICITED RESULTS Final Result Performing Organization Address City/State/[facility] Co de Phone Number [facility] [address] LAB [address] [place] [address] * (ABNORMAL) POCT arterial blood gas gem (06/14/2025 11:33 AM EDT) [facility] pH, Arterial 7.37 7.31 - 7.42 06/14/2025 11:35 AM EDT [facility] pCO2, Arterial 43 32 - 45 mm Hg 06/14/2025 11:35 AM EDT [facility] pO2, Arterial 380 >80 mm Hg 06/14/2025 11:35 AM EDT [facility] SO2, Arterial 99(H) 94 - 98 % 06/14/2025 11:35 AM EDT [facility] Base Excess, Arterial -0.5 -2 - 3 mmol/L 06/14/2025 11:35 AM EDT [facility] HCO3, Arterial 24.9 22 - 26 mmol/L 06/14/2025 11:35 AM EDT [facility] Total Hemoglobin, Arterial, Whole Blood 11.5(L) 13.7 - 17.5 g/dL 06/14/2025 11:35 AM EDT [facility] Hematocrit, Arterial 35.0(L) 40 - 51.0 % 06/14/2025 11:35 AM EDT [facility] Sodium, Arterial 134(L) 136 - 145 mmol/L 06/14/2025 11:35 AM EDT [facility] Potassium, Arterial 5.6(H) 3.6 - 4.9 mmol/L 06/14/2025 11:35 AM EDT [facility] Chloride, Whole Blood 103 97 - 107 mmol/L 06/14/2025 11:35 AM EDT [facility] Glucose, Arterial 123(H) 74 - 99 mg/dL 06/14/2025 11:35 AM EDT [facility] Ionized Calcium, Arterial 4.2(L) 4.6 - 5.1 mg/dL 06/14/2025 11:35 AM EDT [facility] Lactate, Arterial 1.0 0.5 - 1.6 mmol/L 06/14/2025 11:35 AM EDT [facility] Body Temperature 37.0 Celsius 06/14/2025 11:35 AM EDT [facility] pH, Temp Corrected, Arterial 7.37 7.31 - 7.42 06/14/2025 11:35 AM EDT [facility] pCO2, Temp Corrected, Arterial 43 32 - 45 mm Hg 06/14/2025 11:35 AM EDT [facility] pO2, Temp Corrected, Arterial 380 >80 mm Hg 06/14/2025 11:35 AM EDT [facility] Warehouse [employer] And Inventory Clerk ID Vick Dupont 06/14/2025 11:35 AM EDT [facility] Blood Whole blood specimen / Unknown 06/14/2025 11:33 AM EDT 06/14/2025 11:35 AM EDT us Phillip Clark MD LAB POINT OF CARE TE ST DOCKED DEVICE UNSOLICITED RESULTS Final Result [facility] [address] [place] [address] * POCT ACT (06/14/2025 11:24 AM EDT) ACT+ (HIGH RANGE) 520 68 - 600 Seconds 06/14/2025 11:37 AM EDT [facility] Warehouse [employer] And Inventory Clerk ID Vick Dupont 06/14/2025 11:37 AM EDT [facility] ACT Device ID [id number] 06/14/2025 11:37 AM EDT [facility] Comment 06/14/2025 11:37 AM EDT [facility] Comment: ACT performed by [...] ST DOCKED DEVICE UNSOLICITED RESULTS Final Result [facility] [address] LAB [address] [place] [address] * (ABNORMAL) POCT arterial blood gas gem (06/14/2025 11:03 AM EDT) pH, Arterial 7.40 7.31 - 7.42 06/14/2025 11:04 AM EDT [facility] pCO2, Arterial 41 32 - 45 mm Hg 06/14/2025 11:04 AM EDT [facility] pO2, Arterial 406 >80 mm Hg 06/14/2025 11:04 AM EDT [facility] SO2, Arterial 100(H) 94 - 98 % 06/14/2025 11:04 AM EDT [facility] Base Excess, Arterial 0.5 -2 - 3 mmol/L 06/14/2025 11:04 AM EDT [facility] HCO3, Arterial 25.4 22 - 26 mmol/L 06/14/2025 11:04 AM EDT [facility] Total Hemoglobin, Arterial, Whole Blood 11.9(L) 13.7 - 17.5 g/dL 06/14/2025 11:04 AM EDT [facility] Hematocrit, Arterial 36.0(L) 40 - 51.0 % 06/14/2025 11:04 AM EDT [facility] Sodium, Arterial 133(L) 136 - 145 mmol/L 06/14/2025 11:04 AM EDT [facility] Potassium, Arterial 5.3(H) 3.6 - 4.9 mmol/L 06/14/2025 11:04 AM EDT [facility] Chloride, Whole Blood 103 97 - 107 mmol/L 06/14/2025 11:04 AM EDT [facility] Glucose, Arterial 121(H) 74 - 99 mg/dL 06/14/2025 11:04 AM EDT [facility] Ionized Calcium, Arterial 4.2(L) 4.6 - 5.1 mg/dL 06/14/2025 11:04 AM EDT [facility] Lactate, Arterial 1.0 0.5 - 1.6 mmol/L 06/14/2025 11:04 AM EDT [facility] Body Temperature 37.0 Celsius 06/14/2025 11:04 AM EDT [facility] pH, Temp Corrected, Arterial 7.40 7.31 - 7.42 06/14/2025 11:04 AM EDT [facility] pCO2, Temp Corrected, Arterial 41 32 - 45 mm Hg 06/14/2025 11:04 AM EDT [facility] pO2, Temp Corrected, Arterial 406 >80 mm Hg 06/14/2025 11:04 AM EDT [facility] Warehouse P[employer] And Inventory Clerk ID Vick Dupont 06/14/2025 11:04 AM EDT [facility] Blood Whole blood specimen / Unknown 06/14/2025 11:03 AM EDT 06/14/2025 11:04 AM EDT Phillip Clark MD LAB POINT OF CARE TE ST DOCKED DEVICE UNSOLICITED RESULTS Final Result [facility] [address] [place] [address] * POCT ACT (06/14/2025 10:57 AM EDT) ACT+ (HIGH RANGE) 569 68 - 600 Seconds 06/14/2025 11:09 AM EDT [facility] Warehouse [employer] And Inventory Clerk ID Vick Dupont 06/14/2025 11:09 AM EDT [facility] ACT Device ID [id number] 06/14/2025 11:09 AM EDT [facility] Comment 06/14/2025 11:09 AM EDT [facility] Comment: ACT performed by [...] ST DOCKED DEVICE UNSOLICITED RESULTS Final Result [facility] [address] LAB [address] [place] [address] * (ABNORMAL) POCT arterial blood gas gem (06/14/2025 10:33 AM EDT) pH, Arterial 7.39 7.31 - 7.42 06/14/2025 10:34 AM EDT [facility] pCO2, Arterial 41 32 - 45 mm Hg 06/14/2025 10:34 AM EDT [facility] pO2, Arterial 349 >80 mm Hg 06/14/2025 10:34 AM EDT [facility] SO2, Arterial 99(H) 94 - 98 % 06/14/2025 10:34 AM EDT [facility] Base Excess, Arterial -0.2 -2 - 3 mmol/L 06/14/2025 10:34 AM EDT [facility] HCO3, Arterial 24.8 22 - 26 mmol/L 06/14/2025 10:34 AM EDT [facility] Total Hemoglobin, Arterial, Whole Blood 10.9(L) 13.7 - 17.5 g/dL 06/14/2025 10:34 AM EDT [facility] Hematocrit, Arterial 33.0(L) 40 - 51.0 % 06/14/2025 10:34 AM EDT [facility] Sodium, Arterial 135(L) 136 - 145 mmol/L 06/14/2025 10:34 AM EDT [facility] Potassium, Arterial 4.8 3.6 - 4.9 mmol/L 06/14/2025 10:34 AM EDT [facility] Chloride, Whole Blood 103 97 - 107 mmol/L 06/14/2025 10:34 AM EDT [facility] Glucose, Arterial 116(H) 74 - 99 mg/dL 06/14/2025 10:34 AM EDT [facility] Ionized Calcium, Arterial 4.1(L) 4.6 - 5.1 mg/dL 06/14/2025 10:34 AM EDT [facility] Lactate, Arterial 1.3 0.5 - 1.6 mmol/L 06/14/2025 10:34 AM EDT [facility] Body Temperature 37.0 Celsius 06/14/2025 10:34 AM EDT [facility] pH, Temp Corrected, Arterial 7.39 7.31 - 7.42 06/14/2025 10:34 AM EDT [facility] pCO2, Temp Corrected, Arterial 41 32 - 45 mm Hg 06/14/2025 10:34 AM EDT [facility] pO2, Temp Corrected, Arterial 349 >80 mm Hg 06/14/2025 10:34 AM EDT [facility] Warehouse Pricing And Inventory Clerk ID Vick Dupont 06/14/2025 10:34 AM EDT [facility] Blood Whole blood specimen / Unknown 06/14/2025 10:33 AM EDT 06/14/2025 10:34 AM EDT Phillip Clark MD LAB POINT OF CARE TE ST DOCKED DEVICE UNSOLICITED RESULTS Final Result Performing Organization Address City/State/[facility] Co de Phone Number [facility] [address] [place] [address] * (ABNORMAL) POCT ACT (06/14/2025 10:26 AM EDT) ACT+ (HIGH RANGE) >600(H) 68 - 600 Seconds 06/14/2025 10:40 AM EDT [facility] Warehouse Pricing And Inventory Clerk ID Vick Dupont 06/14/2025 10:40 AM EDT [facility] ACT Device ID [id number] 06/14/2025 10:40 AM EDT [facility] Comment 06/14/2025 10:40 AM EDT [facility] Comment: ACT performed by [...] ST DOCKED DEVICE UNSOLICITED RESULTS Final Result [facility] [address] [place] [address] * Surgical Pathology Exam (06/14/2025 10:18 AM EDT) Case Report Surgical Pathology Case: [id number] Authorizing Provider: Phillip Clark MD Collected: 06/14/2025 1018 Ordering Location: [facility] A OPERATING ROOM Received: 06/14/2025 1413 Pathologist: Beth Lake MD Specimen: Heart, aortic valve leaflets 06/15/2025 11:44 AM EDT [facility] Final Diagnosis A. AORTIC VALVE LEAFLETS, REPLACEMENT: - FIBROSIS AND MYXOID DEGENERATION. 06/15/2025 11:44 AM EDT [facility] at 1144 EDT Clinical Information Severe aortic regurgitation [I35.1] 06/15/2025 11:44 AM EDT [facility] Gross Description A. AORTIC VALVE LEAFLETS Received fresh and placed in formalin labeled aortic valve leaflets are 2 white-montez soft cardiac leaflets ranging in size from 2.5-4.0 cm in greatest dimension. 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 Cold Time: 3h 55m April Santos 06/15/2025 11:44 AM EDT [facility] Tissue Heart structure / Unknown 06/14/2025 10:18 AM EDT 06/14/2025 2:13 PM EDT Comment:Pre-op diagnosis: Severe aortic regurgitation [I35.1] us Phillip Clark MD LAB PATHOLOGY ORDERABLES Fin al Result [facility] [address] [place] [address] * (ABNORMAL) POCT arterial blood gas gem (06/14/2025 10:08 AM EDT) pH, Arterial 7.40 7.31 - 7.42 06/14/2025 10:17 AM EDT [facility] pCO2, Arterial 40 32 - 45 mm Hg 06/14/2025 10:17 AM EDT [facility] pO2, Arterial 410 >80 mm Hg 06/14/2025 10:17 AM EDT [facility] SO2, Arterial 100(H) 94 - 98 % 06/14/2025 10:17 AM EDT [facility] Base Excess, Arterial 0.0 -2 - 3 mmol/L 06/14/2025 10:17 AM EDT [facility] HCO3, Arterial 24.8 22 - 26 mmol/L 06/14/2025 10:17 AM EDT [facility] Total Hemoglobin, Arterial, Whole Blood 10.1(L) 13.7 - 17.5 g/dL 06/14/2025 10:[facility] Hematocrit, Arterial 30.0(L) 40 - 51.0 % 06/14/2025 10:17 AM EDT [facility] Sodium, Arterial 133(L) 136 - 145 mmol/L 06/14/2025 10:[facility] Potassium, Arterial 4.7 3.6 - 4.9 mmol/L 06/14/2025 10:17 AM EDT [facility] Chloride, Whole Blood 104 97 - 107 mmol/L 06/14/2025 10:[facility] Glucose, Arterial 122(H) 74 - 99 mg/dL 06/14/2025 10:17 AM EDT [facility] Ionized Calcium, Arterial 3.9(L) 4.6 - 5.1 mg/dL 06/14/2025 10:17 AM EDT [facility] Lactate, Arterial 1.5 0.5 - 1.6 mmol/L 06/14/2025 10:17 AM EDT [facility] Body Temperature 37.0 Celsius 06/14/2025 10:17 AM EDT [facility] pH, Temp Corrected, Arterial 7.40 7.31 - 7.42 06/14/2025 10:17 AM EDT [facility] pCO2, Temp Corrected, Arterial 40 32 - 45 mm Hg 06/14/2025 10:17 AM EDT [facility] pO2, Temp Corrected, Arterial 410 >80 mm Hg 06/14/2025 10:17 AM EDT [facility] Warehouse P[employer] And Inventory Clerk ID Vick Dupont 06/14/2025 10:17 AM EDT [facility] Blood Whole blood specimen / Unknown 06/14/2025 10:08 AM EDT 06/14/2025 10:17 AM EDT Phillip Clark MD LAB POINT OF CARE TE ST DOCKED DEVICE UNSOLICITED RESULTS Final Result Performing Organization Address City/[facility] Co de Phone Number [facility] [address] [place] [address] * (ABNORMAL) POCT ACT (06/14/2025 10:04 AM EDT) [facility] Signature ACT+ (HIGH RANGE) >600(H) 68 - 600 Seconds 06/14/2025 10:19 AM EDT [facility] Warehouse Pricing And Inventory Clerk ID Vick Dupont 06/14/2025 10:19 AM EDT [facility] ACT Device ID [id number] 06/14/2025 10:19 AM EDT [facility] Comment 06/14/2025 10:19 AM EDT [facility] Comment: ACT performed by [...] UNSOLICITED RESULTS Final Result Performing Organization Address City/[facility]/ZIP Co de Phone Number [facility] [address] LAB [address] [place] [address] * POCT ACT (06/14/2025 8:13 AM EDT) ACT+ (HIGH RANGE) 90 68 - 600 Seconds 06/14/2025 8:20 AM EDT [facility] Warehouse Pricing And Inventory Clerk ID Kevin Hernandez 06/14/2025 8:20 AM EDT [facility] ACT Device ID [id number] 06/14/2025 8:20 AM EDT [facility] Comment 06/14/2025 8:20 AM EDT [facility] Comment: ACT performed by [...] UNSOLICITED RESULTS Final Result [facility] [address] [place], [place] [id number] [place] [address] LAB [address] [place] [address] * (ABNORMAL) POCT arterial blood gas gem (06/14/2025 8:13 AM EDT) pH, Arterial 7.38 7.31 - 7.42 06/14/2025 8:15 AM EDT [facility] pCO2, Arterial 40 32 - 45 mm Hg 06/14/2025 8:15 AM EDT [facility] pO2, Arterial 91 >80 mm Hg 06/14/2025 8:15 AM EDT [facility] SO2, Arterial 99(H) 94 - 98 % 06/14/2025 8:15 AM EDT [facility] Base Excess, Arterial -1.3 -2 - 3 mmol/L 06/14/2025 8:15 AM EDT [facility] HCO3, Arterial 23.7 22 - 26 mmol/L 06/14/2025 8:15 AM EDT [facility] Total Hemoglobin, Arterial, Whole Blood 14.5 13.7 - 17.5 g/dL 06/14/2025 8:15 AM EDT [facility] Hematocrit, Arterial 44.0 40 - 51.0 % 06/14/2025 8:15 AM EDT [facility] Sodium, Arterial 135(L) 136 - 145 mmol/L 06/14/2025 8:15 AM EDT [facility] Potassium, Arterial 4.1 3.6 - 4.9 mmol/L 06/14/2025 8:15 AM EDT [facility] Chloride, Whole Blood 103 97 - 107 mmol/L 06/14/2025 8:15 AM EDT [facility] Glucose, Arterial 95 74 - 99 mg/dL 06/14/2025 8:15 AM EDT [facility] Ionized Calcium, Arterial 4.7 4.6 - 5.1 mg/dL 06/14/2025 8:15 AM EDT [facility] Lactate, Arterial 0.8 0.5 - 1.6 mmol/L 06/14/2025 8:15 AM EDT [facility] Body Temperature 37.0 Celsius 06/14/2025 8:15 AM EDT [facility] pH, Temp Corrected, Arterial 7.38 7.31 - 7.42 06/14/2025 8:15 AM EDT [facility] pCO2, Temp Corrected, Arterial 40 32 - 45 mm Hg 06/14/2025 8:15 AM EDT [facility] pO2, Temp Corrected, Arterial 91 >80 mm Hg 06/14/2025 8:15 AM EDT [facility] Warehouse Pricing And Inventory Clerk ID Lb Coreas 06/14/2025 8:15 AM EDT [facility] Blood Whole blood specimen / Unknown 06/14/2025 8:13 AM EDT 06/14/2025 8:15 AM EDT us Phillip Clark MD LAB POINT OF CARE TE ST DOCKED DEVICE UNSOLICITED RESULTS Final Result [facility] [address] [place] [id number] * Type and Screen (06/14/2025 6:27 AM [...] ORDERABL ES Final Result Performing Organization Address [facility] Co de Phone Number BLOOD BANK [address] [place] [address], * POCT glucose meter (06/14/2025 6:23 AM [...] 06/14/2025 6:24 AM EDT [facility] Warehouse Pricing And Inventory Clerk ID Kassi Sinha 06/14/2025 6:24 AM EDT [facility] LAB Device ID [id number] 06/14/2025 6:24 AM EDT [facility] Specimen Type POC Venous 06/14/2025 6:24 AM EDT [facility] Blood Venous blood specimen / Unknown 06/14/2025 6:23 AM EDT 06/14/2025 6:24 AM EDT Phillip Clark MD LAB POINT OF CARE TE ST DOCKED DEVICE UNSOLICITED RESULTS Final Result Performing Organization Address City/[facility] Co de Phone Number [facility] [address] [place] [address] documented in this encounter Visit Diagnoses Diagnosis Aortic valve regurgitation- Primary Aortic valve disorders Severe aortic regurgitation Other secondary hypertension S/P AVR BMI 30.0-30.9,adult High cholesterol Pure hypercholesterolemia Hypertension Unspecified essential hypertension CAD (coronary artery disease) Coronary atherosclerosis of unspecified type of vessel, chipeww[place] or graft History of coronary angioplasty with [...] add comment - Comment: dose given by night warehouse selector rn @ [address] [place], [place] [address]Daiana instructed keno writer/runner to hold 0900 dose)2003 (Given - Provider: Lori Molina RN) 846 (Given - Provider: Vicente Hussein RN) metoprolol tartrate (Lopressor) tablet 25 [...] Provider: Any Garcia RN)0622 (Given - Provider: Any Garcia RN - [...] HESHAM)2004 (See Alternative - Provider: Lori Molina, HESAHM) 0431 (See Alternative - Provider: Lori Molina [...] documented as of this encounter Care Teams Load Tester Relationship Specialty [place] [id number] PCP - General 02/28/25 documented as of this encounter
--- OUTSIDE RECORDS SUMMARY | 2025-06-14 06:45 | XMS_ITS | Encounter Summary ---
Author Organization [facility] Address [address] [place] [id number] Care Team Providers Care Cushion Worker Name Role Phone Kamran Singh MD Primary Care Provider [phone] Reason for Visit * Auth/Cert (Routine) Specialty Diagnoses / Procedures Referred By Nathalia t Referred To Contact Diagnoses Severe aortic regurgitation Severe aortic regurgitation [I35.1] Procedures GA -AORT GRF W/CARD BYP F/AORTIC DISSECTION AORTIC ROOT RECONSTRUCTION Phillip Clark MD [address] [facility] [address] [place] [address] Phone: tel: fax: [facility] [address] [place] [address] Phone: tel: Referral ID Status Reason Start Date Expiration Date Visits Re quested Visits Authorized [id number] 1 1 Encounter Details Date Type Department Care Team (Late st Contact Info) Description 06/14/2025 7:45 AM EDT Anesthesia Event [facility] [address] [place] [address] Jean Claude Staley MD [address] [place] [address] Ricki Zamarripa DO [address] [id number] Anesthesia Record Procedure Summary Procedure Name Responsible Anesthesiologist Anesthesia Start Time Anesthesia Stop Time Aortic valve replacement Jean Claude Staley MD 06/14/25 0745 06/14/25 1436 Events Date Time Event Comment 06/14/2025 0700 0743 In Room 0745 An Start The patient was reevaluated immediately before sedation and remains eligible for anesthesia plan. 0745 An Start Data 0745 Perfusion Start 0808 Line Placement 0812 An Induction The patient was reevaluated immediately before moderate or deep sedation use and before anesthesia induction. 0816 An Intubation 0819 ACT Performed 90 0825 Wagner Vanco infused 0832 Line Placement 0833 Anesthesia Ready 0850 Autotransfusion Start 0855 Proc Start 0902 Sternotomy 0929 An Aortic Cannula 0932 Wagner Arterial line h aving trouble drawing and flushing 0935 An Venous Cannula 0937 Art Line Pulse/Test 0942 An CV Bypass init 0951 AN Active Cool 0955 Clamp On 1006 Labs 1006 ACT Performed 759s 1030 Labs 1030 ACT Performed 633s 1037 AN Active Warm 1037 32C infl ow 1130 Full rewarm 1037 Active Cooling Stop 1100 ACT Performed 569s 1100 Labs 1130 Labs 1130 ACT Performed 520s 1200 Labs 1200 ACT Performed 510s 1206 Clamp Off 1214 Labs 1232 An CV Bypass Ended 1232 Active Warming Stop 1247 ACT Performed 98s 1330 Wagner Wires removed d ue to one being broken; chest puneet;l be closed again 1345 Wagner Chest closed 1356 Autotransfusion Stop 1357 Perfusion Stop 1409 Proc Fin 1416 Block Placed 1421 an stop data 1425 Out of Room 1435 Handoff to Receiving I compl eted my handoff to the receiving clinician during which we: 1. Identified the patient 2. Identified the responsible provider 3. Reviewed the pertinent medical history 4. Discussed the surgical course 5. Reviewed intra-op anesthesia management and issues during anesthesia 6. Set expectations for post-procedure period 7. Allowed opportunity for questions and acknowledgement of understanding. 1436 An Stop Meds Name Total midazolam (Versed) injection 1 mg/mL 5 m g fentaNYL (Sublimaze) injection 50 mcg/mL 1,000 mcg lidocaine PF (Xylocaine-MPF) 2% 80 mg propofol (Diprivan) injection 10 mg/mL 9 0 mg rocuronium (ZeMuron) injection 10 mg/mL 210 mg norepinephrine (Levophed) injection 1 mg /mL 8 mcg nitroglycerin (Tridil) bolus 400 mcg EPINEPHrine in 0.9% NaCl infusion 32 mcg /mL 1.51 mg insulin regular injection in 0.9% NS 1 u nit/mL 5.1 Units tranexamic acid (Cyklokapron) injection 100 mg/mL 878 mg tranexamic acid (Cyklokapron ) 1 mg in sodium chloride 0.9 % 100 mL (0.01 mg/mL) IVPB 414.12 mg heparin injection 1,000 units/mL 35,000 Units heparin (porcine) injection 1,000 units/ mL 7,000 Units protamine injection 300 mg Prime for CPB (OSM) 1,000 mL magnesium sulfate 4 g in sodium chloride 0.9 % 100 mL IVPB 4 g cardioplegia (Del Nido) solution 1,750 m L phenylephrine (Vazculep) injection 10 mg /mL 925 mcg ceFAZolin (Ancef) injection 2 g 4 g nitroglycerin (Tridil) infusion 200 mcg/ mL 0.07 mg niCARdipine (Cardene) injection 2.5 mg/m L 125 mcg clevidipine (Cleviprex) infusion 0.5 mg/ mL 14.17 mg calcium chloride injection 10% 1 g dexmedetomidine (Precedex) infusion in N aCl 4 mcg/mL 24 mcg 0.25% ropivacaine 60 mL lactated Ringer's infusion 200 mL sodium chloride 0.9 % infusion 329.17 mL * Agents Name O2 N2O Air Sevoflurane Isoflurane Desflurane Inspired Desflurane Inspired Isoflurane Inspired Sevoflurane N2O Inspired N2O * Blood No blood administrations on file. Lines, Drains, and Airways Type Details Placement Removal Wound 06/14/25; 0859; N; Y es; Surgical; Sternum 06/14/25 0859 by Janene Arroyo RN Peripheral IV Placement Date: 06/01 12/24; Placement Time: 06; Catheter Size: 18 G; Orientation: Posterior, Right; Location: Hand; Site Prep: Chlorhexidine ; Local Anesth: None; Technique: Anatomical landmarks; Inserted by: Kacie Sinha; Insertion Attempts: 1; Patient Tolerance: Tolerated well; Removal Date: 06/19/25; Removal Time: 2040; Removal Reason: Leaking 06/14/25 06 by Jimmie Taylor RN 06/19/252040 by Any Garcia RN Arterial Line Placement Date: 06/01 12/24; Placement Time: 0808 (created via procedure documentation); Size: 20 G; Orientation: Right; Location: Brachial; Inserted by: Other Anesthesia Staff; Securement: Sutured; Patient Tolerance: Tolerated well; Removal Date: 06/16/25; Removal Time: 1345; Removal Reason: Per order 06/14/25 0808 by Ricki Zamarripa, DO 06/16/25 1345 by Fariba Blanton RN ETT Placement Date: 06/01 12/24; Placement Time: 0816 (created via procedure documentation); Mask Ventilation: 2; Technique: Direct laryngoscopy; Type: ETT - single; Single Lumen Tube Size: 8 mm; Cuffed: Yes; Laryngoscope: Mateusz; Blade Size: 3; Location: Oral; Grade View: Grade I; Insertion Attempts: 1; Placement Verification: Auscultation, Capnometry; Airway Comments: Atraumatic. No change to dentition. ; Placed by: Other (Comment); Removal Date: 06/14/25; Removal Time: 1731 06/14/25 0816 by Ricki Zamarripa, DO 06/14/25 173 by Ayla Chapin Urethral Catheter Placement Date: 06/01 12/24; Placement Time: 0822; Inserted by: Suly Arroyo RN; Type: Temperature probe; Size: 16 Fr.; Balloon Size: 10 mL; Urine Returned: Yes; Removal Date: 06/16/25; Removal Time: 1405 06/14/25 0822 by Janene Arroyo RN 06/16/25 1405 by Fariba Blanton RN CVC Double Lumen Placement Date: 06/01 12/24; Placement Time: 0832 (created via procedure documentation); Hand Hygiene: Yes; Site Prep: Chlorhexidine ; Site Prep Agent Dried: Yes; Sterile Barrier Used: Yes; Size: 9 Fr; Line Length(cm): 11.5; Orientation: Right; Location: Internal jugular; Placement Verification: Blood return, Ultrasound; Removal Date: 06/18/25; Removal Time: 0517; Removal Reason: Per order 06/14/25 0832 by Ricki Zamarripa, DO 06/18/25 0517 by Lori Molina RN Introducer Placement Date: 06/01 12/24; Placement Time: 0832 (created via procedure documentation); Hand Hygiene: Yes; Location: Internal jugular; Orientation: Right; Placement Verified by: Pressure tracing changes, SULTANA; Removal Date: 06/15/25; Removal Time: 1212 06/14/25 0832 by Ricki Zamarripa, DO 06/15/25 1212 by Bony Thomas RN Chest Tube Placement Date: 06/01 12/24; Placement Time: 1327; Inserted by: Samy; Location: Mediastinal; Size: 36 Fr; Removal Date: 06/16/25; Removal Time: 0830; Removal Reason: Other (Comment) (removed by CVT) 06/14/25 1327 by Janene Arroyo RN 06/16/25 0830 by Fariba Blanton RN Pacer Wires 06/14/25; 1400; No; Ventricular; 06/17/25; 0815 06/14/25 1400 by Agueda Easton RN 06/17/25 0815 by Lee Tello RN NG/OG Tube Placement Date: 06/01 12/24; Placement Time: 1409; Type: Orogastric; Size: 18 Fr; Location: Center mouth; Removal Date: 06/14/25; Removal Time: 19006/14/25 1409 by Ricki Zamarripa DO 06/14/25 1901 by Agueda Easton RN documented in this encounter Social History Tobacco Use Types Packs/Day Years [...] money to buy more. Never true 06/15/20 Within the past 12 months, t he [...] any time in the past 12 [facility], were you homeless or living in a jail (including now)? No 06/15/2025 [facility] Utilities Answer Date Recorded In the past 12 months has th e [employer], gas, oil, or water [employer] threatened to shut off services in your home? No 06/15/2025 Sex and Gender Information Value Date Recorded Sex Assigned at Not on file Legal Sex Male 7:47 PM EDT Gender Identity Not on file Sexual Orientation Not on file documented as of this encounter Miscellaneous Notes * Addendum Note - Cassy Baca - 06/15/2025 5:12 PM EDT Addendum created 06/15/25 1712 by Cassy Baca Attestation recorded in Intraprocedure (Perfusion), Intraprocedure Attestations filed (Perfusion) * Anesthesia Postprocedure Evaluation - Ricki Zamarripa DO - 06/14/2025 2:40 PM EDT Patient: Bradley Forrest Anesthesia Type: general Vitals Value Taken Time BP 115/53 06/14/25 14:40 Temp See RN flowsheet 06/14/25 14:40 Pulse 62 06/14/25 14:38 Resp 18 06/14/25 14:38 SpO2 100 % 06/14/25 14:38 Vitals shown include unfiled device data. Anesthesia Post Evaluation Patient location during evaluation: ICU Patient participation: complete - patient cannot participate Level of consciousness: sedated Pain management: adequate (pain score 0-3) Airway patency: endotracheal device Cardiovascular status: acceptable and hemodynamically stable Respiratory status: acceptable, ETT and ventilator Hydration status: acceptable Nausea/Vomiting: No Comments: The patient was transported to the ICU on transport monitor, and remained HDS throughout.The patient was manually ventilated w/ ambu bag and supplemental O2 throughout transport, and remained stable from a respiratory standpoint. Upon arrival to the ICU the patient was transferred to mechanical ventilator. Handoff was given to the ICU team. Patient remained HDS prior to anesthesia teamdeparture from ICU. 115/53 No notable events documented. Cosigned by Jean Claude Staley MD at 06/14/2025 4:26 PM EDT Associated attestation - Jean Claude Staley MD - 06/14/2025 4:26 PM EDT I agree with the findings and care plan documented in the postprocedure evaluation note. * Anesthesia Procedure Notes - Ricki Zamarripa DO - 06/14/2025 2:39 PM EDT Associated Order(s): Peripheral Block Peripheral Block Patient location during procedure: OR Start time: 06/14/2025 2:16 PM Reason for block: post-op pain management Block is at surgeon's request Staffing Performed: Other Anesthesia Staff Anesthesiologist: Jean Claude Staley MD Other anesthesia staff: Ricki Zamarripa DO Preanesthetic Checklist Completed: patient identified, IV checked, site marked, risks and benefits discussed, surgical consent, monitors and equipment checked, pre-op evaluation and timeout performed Peripheral Block Patient position: supine Prep: ChloraPrep Patient monitoring: heart rate, radiation monitor and continuous pulse ox Anesthesia block type: PIF and Subcostal. Laterality: left and right Injection technique: single-shot Guidance: ultrasound guided Ultrasound used for needle placement AND ultrasound image retained Needle Needle type: short-bevel Needle gauge: 22. Needle length: 8 cm. Needle localization: anatomical landmarks and ultrasound guidance Medications Administered: 0.25% ropivacaine - Injection 60 mL - 06/14/2025 2:16:00 PM Assessment Injection assessment: negative aspiration for heme, no paresthesia on injection, local visualized surrounding nerve on ultrasound and incremental injection Paresthesia pain: none Heart rate change: no Slow fractionated injection: yes Additional Notes Skin cleaned w/ CHG prior to procedure. Bilateral PIF blocks performed under US guidance. Aspiration negative for heme. Incremental injection of 15 ml of 0.25% Ropivacaine for each PIF block. Skin cleaned w/ CHG prior to procedure. Bilateral subcostal blocks performed under US guidance. Aspiration negative for heme. Incremental injection of 15 mL of 0.25% Ropivacaine for each subcostal block. Cosigned by Jean Claude Staley MD at 06/14/2025 4:26 PM EDT Associated attestation - Jean Claude Staley MD - 06/14/2025 4:26 PM EDT Requesting Physician: Dr Eduardo Abarca was present during all critical and haile portions of the procedure(s) and immediately available [facility] the entire duration. See resident note for details. * Anesthesia Procedure Notes - Jean Claude Staley MD - 06/14/2025 2:15 PM EDT Associated Order(s): SULTANA Procedure Performed: SULTANA General Procedure Information Diagnostic Indications for SULTANA: assessment of ascending aorta, assessment of surgical repair, hemodynamic monitoring, other indication Other indication: Aortic root reconstruction and AVR Location performed: OR Modalities: 3D only, 2D only, pulse wave doppler and continuous wave Dopper Consent given by: PatientIntubated Bite block placed Heart visualized Probe Insertion: Easy Probe Type: Multiplane Preanesthesia Checklist: Patient identified, IV checked, risks and benefits discussed, surgical consent, monitors and equipment checked and pre-op evaluation. Anesthesia Information Performed Other Anesthesia Staff Anesthesiologist: Jean Claude Staley MD Additional Anesthesia Staff: Jennifer Garrido MD Echocardiogram Comments: Pre Bypass LV: Dilated LV with eccentric LVH (1.4 cm). Mildly impaired LV systolic function with a LVEF 50-55%. No wall motion abnormalities RV: normal RV size and thickness based on TAPSE & FAC. Aortic valve: Most likely trileaflet aortic valve but fusion of the right and left commissure at their base noted. The leaflets appear unequal with non- coronary leaflet being the largest, left being the smallest. The edges of non & right leaflet cusp appears thickened with a mal-coaptation. There is severe aortic valve regurgitation with a eccentric jet directed towards the anterior leaflet of the mitral valve. Annulus size: 2.3 cm x 2.6 cm, Sinus: 3.62 cm x 3.9 cm, STJ: 3.16, ascending aorta: 4cm x 4.3 cm. Mitral Valve: Normal valve leaflets with no evidence MR or MS by CFD. Tricuspid valve: Normal valve leaflets. No evidence of pathological flow by CD Pulmonic valve: Normal valve leaflet with mild PI with an eccentric jet. Interatrial septum: No evidence of shunting by CFD Aorta: normal aorta with presence of 3mm atheroma in the distal arch. Pericardium and Pleura: no fluid present Post Bypass: mechanical aortic valve replacement LV: Same as baseline. LVEF of 50% by 3D measurements, on low dose epinephrine gtt (0.03 mcg/kg/min) RV: same as baseline Aortic valve: [place] valve replaced by mechanical valve. New valve is well seated with appropriate movement of valve leaflets. No perivalvular leak. Mean PG of 2mm Hg and AT 55 msec. Aorta: intact after decannulation. Findings were communicated with surgeon. * Anesthesia Procedure Notes - Rciki Zamarripa DO - 06/14/2025 8:54 AM EDT Associated Order(s): Central Venous Line Central Venous Line: Date/Time: 06/14/2025 8:32 AM A central venous line was placed in the OR for the following indication(s): central venous access and CVP monitoring. Sterility preparation included the following: provider hand hygiene performed prior to central venous catheter insertion, all 5 sterile barriers used (gloves, gown, cap, mask, large sterile drape) during central venous catheter insertion, antiseptic used during central venous catheter insertion andskin prep agent completely dried prior to procedure. The patient was placed in Trendelenburg position. Right internal jugular vein was prepped. The site was prepped with Chlorhexidine. A 9 Fr (size), 11.5 (length), introducer double lumen was placed. During the procedure, the following specific steps were taken: target vein identified, needle advanced into vein and blood aspirated and guidewire advanced into vein. Seldinger technique used Procedure performed using ultrasound guidance Sterile gel and probe cover used in ultrasound-guided central venous catheter insertion. Intravenous verification was obtained by ultrasound and venous blood return. Post insertion care included: all ports aspirated, all ports flushed easily, guidewire removed intact, Biopatch applied, line sutured in place and dressing applied. During the procedure the patient experienced: patient tolerated procedure well with no complications. PA Catheter Placed A oximetric, 8 (size) Pulmonary Artery Catheter (PAC) was placed through the Introducer CVL in the right internal jugular vein. The PAC placement was confirmed by pressure tracing changes and SULTANA and secured at 50 cm (depth). The patient experienced the following events during the procedure: patient tolerated procedure wellwith no complications. Staffing Performed: Other Anesthesia Staff Anesthesiologist: Jean Claude Staley MD Other anesthesia staff: Ricki Zamarripa DO Ultrasound was used to visualize vascular needle entry into the internal jugular vessel AND ultrasound image was retained. Ultrasound was used to visualize vascular needle entry into the internal jugular vein AND ultrasound image was retained. Cosigned by Jean Claude Staley MD at 06/14/2025 10:14 AM EDT Associated attestation - Jean Claude Staley MD - 06/14/2025 10:14 AM EDT I was present during all critical and haile portions of the procedure(s) and immediately available [facility] the entire duration. See resident note for details. * Anesthesia Procedure Notes - Ricki Zamarripa DO - 06/14/2025 8:52 AM EDT Associated Order(s): Arterial Line Arterial Line: Date/Time: 06/14/2025 8:08 AM An arterial line was placed. Procedure performed using ultrasound guidance in the OR for the following indication(s): continuousblood pressure monitoring and blood sampling needed. A 20 gauge (size), 1 and 3/4 inch (length), Arrow (type) catheter was placed into the brachial artery and secured by suture. Seldinger technique used Events: patient tolerated procedure well with no complications. Additional notes: One attempt right radial, very calcified, successful flash but unable to thread. Moved proximally on extremity to brachial artery. Successful placement brachial artery Staffing Performed: Other Anesthesia Staff Anesthesiologist: Jean Claude Staley MD Other anesthesia staff: Rikci Zamarripa DO Cosigned by Jean Claude Staley MD at 06/14/2025 10:14 AM EDT Associated attestation - Jean Claude Staley MD - 06/14/2025 10:14 AM EDT I was present during all critical and haile portions of the procedure(s) and immediately available tofurnish services the entire duration. See resident note for details. * Anesthesia Procedure Notes - Ricki Zamarripa DO - 06/14/2025 8:51 AM EDT Associated Order(s): Airway Airway Date/Time: 06/14/2025 8:16 AM Reason: elective Airway not difficult General Information and Staff Patient location during procedure: OR Anesthesiologist: Jean Claude Staley MD Other anesthesia staff: Ricki Zamarripa DO Performed: Other Anesthesia Staff Patient Condition Indications for airway management: anesthesia Patient position: sniffing Final Airway Details Final airway type: endotracheal airway Successful airway: ETT Cuffed: yes Successful intubation technique: direct laryngoscopy Adjuncts used in placement: intubating stylet Endotracheal tube insertion site: oral Blade: Mateusz Blade size: #3 ETT size (mm): 8.0 Cormack-Lehane Classification: grade I - full view of glottis Placement verified by: chest auscultation and capnometry Cuff volume (mL): 7 Measured from: lips ETT to lips (cm): 22 Ventilation between attempts: none Additional Comments Atraumatic. No change to dentition. Cosigned by Jean Claude Staley MD at 06/14/2025 10:14 AM EDT Associated attestation - Jean Claude Staley MD - 06/14/2025 10:14 AM EDT I was present during all critical and haile portions of the procedure(s) and immediately available tofurnish services the entire duration. See resident note for details. * Anesthesia Preprocedure Evaluation - Jean Claude Staley MD - 06/13/2025 3:30 PM EDT Images from the original note were not included. Procedure Information Date/Time: 06/14/25 0745 Procedure: AORTIC ROOT RECONSTRUCTION Location: [facility] OR 14 / AD OR Surgeons: Phillip Clark MD Department of Anesthesiology Perioperative Critical Care and Pain Medicine Patient Information Patient Name: Bradley Forrest Date of : 1955 Subjective: Bradley Forrest is a 69 y.o. male with hx of CAD s/p 2 stents 03/2025, ascending aortic aneurysm (4.3cm), AI, HTN, HLD, and DM (A1c 5.7) presenting for aortic root reconstruction. Echo 04/2025 showed normal EF 50-55%, severe LV dilation with mod-severe AI (possible bicuspid AV) and mild MR. During a routine PCP visit, he was noted to have a murmur on exam which prompted a CT chest and TTEwhich showed a 4.1 cm aneurysm and a mild degree of aortic insufficiency. F/u imaging showed mod-severe AI and significant LV dilation with a normal EF. Now for aortic root replacement. Also endorses bleeding from right nose, spontaneous since on ASA/Plavix. Takes ASA, Atenolol, plavix, losartan, and spironolactone at home. NYHA Classification: Class II: Mild symptoms with ordinary activity. Past Medical History: has a past medical history of Cardiac murmur, Hyperlipidemia, and Hypertension. He has no past medical history of Adverse effect of anesthesia or Malignant hyperthermia. Relevant Problems Cardio (+) Ascending aortic aneurysm (CMS/HCC) (+) CAD (coronary artery disease) (+) High cholesterol (+) Hypertension /Renal (+) Benign prostatic hyperplasia (+) History of coronary angioplasty with insertion of stent Neuro/Psych (+) History of coronary angioplasty with insertion of stent Past Surgical History: has a past surgical history that includes Other surgical history (N/A); Colonoscopy; Shoulder surgery (Right); Knee surgery (Right); and Coronary stent placement. Allergies: Seafood and Lisinopril Medications: Current Outpatient Medications Medication Instructions acetaminophen (TYLENOL) 650 mg, Every morning ASPIRIN 81 mg, Daily atenolol (TENORMIN) 25 mg, Daily clopidogrel (PLAVIX) 75 mg, Daily empagliflozin (JARDIANCE) 10 mg, Daily ezetimibe (ZETIA) 10 mg, Daily ibuprofen 200 mg, Daily losartan (COZAAR) 50 mg, Daily Repatha SureClick 140 mg, Every 14 days rosuvastatin (CRESTOR) 40 mg, Daily spironolactone (ALDACTONE) 25 mg, Daily Social History: reports that he has never smoked. He has never used smokeless tobacco. He reports that he does not currently use alcohol. He reports that he does not use drugs. Tobacco: Tobacco Use: Low Risk (06/09/2025) Patient [...] in his sister; Coronary artery disease in hisfather; Diabetes type I in his mother; Hypertension in his father and another family member; Skin cancer in his maternal grandmother. Objective: WEIGHT: Wt Readings from Last 2 Encounters: 06/09/25 87.8 kg (193 lb 9 oz) 05/05/25 88.7 kg (195 lb 8.8 oz) Mineral Body Weight: Mineral body weight: 66.1 kg (145 lb 11.6 oz) Adjusted ideal body weight: 74.8 kg (164 lb 13.8 oz) BMI: There is no height or weight on file to calculate BMI. There is no height or weight on file to calculate BSA. Vital signs: 03/10/2025 9:00 AM 03/10/2025 9:11 AM 04/14/2025 12:32 PM 05/05/2025 9:57 AM 06/09/2025 12:14 PM Vitals Systolic 167 170 128 143 Diastolic 71 64 64 63 Heart Rate 63 55 56 Height (cm) 170.2 cm 170.2 cm Weight (kg) 87.35 kg 86.9 kg 88.7 kg 87.8 kg BMI 30.16 kg/m2 30.01 kg/m2 30.63 kg/m2 30.32 kg/m2 BSA (m2) 2.03 m2 2.03 m2 2.05 m2 2.04 m2 Visit Report Report Report Report LABORATORIES AND STUDIES: Lab Results Component Value Date WBC 6.17 06/09/2025 RBC 5.62 06/09/2025 HGB 15.6 06/09/2025 HCT 49.2 06/09/2025 MCV 88 06/09/2025 MCHC 31.7 06/09/2025 RDW 15.3 (H) 06/09/2025 PLT 205 06/09/2025 MPV 10.6 06/09/2025 Lab Results Component Value Date BUN 15 06/09/2025 CL 107 06/09/2025 NA 139 06/09/2025 K 4.7 06/09/2025 TP 6.6 06/09/2025 AST 23 06/09/2025 ALT 23 06/09/2025 No results found for: PREALBUMIN No results found for: CEA Imaging: No results found for this or any previous visit (from the past 4464 hours). No echocardiogram results found for the past 12 months Anesthesia Related Medical History: ROS Anesthesia: Date of last anesthetic: March [...] fibrillation, CHF, dysrhythmias, hyperlipidemia, pacemaker or past MD. hypertension: Exercise tolerance is 1 flight of [...] of RCA and PLB 03/08/25 Cardiac MRI: Physical Exam Airway Mallampati: II Mouth opening: normal TM distance: >3 FB Neck ROM: full Cardiovascular Rhythm: regular Rate: normal (+) murmur (-) peripheral edema Dental - normal exam Pulmonary Breath sounds clear to auscultation Neurological Oriented: normal to time, normal to place and normal to person and oriented to person, place and time Skin Musculoskeletal Extremities Anesthesia Plan ASA 4 Plan was reviewed with: fellow Anesthesia technique(s) discussed with the patient/family: general and regional Anesthesia plan agreed upon was: general and regional Comment: Possible chest wall fascial plane block. Anesthetic plan and risks discussed with patient. Use of blood products discussed with patient who consented to blood products. Comment: present at bedside during discussion. ROS Anesthesia: history of previous anesthesia. Does not have a history of anesthetic complications. Cardiovascular: Does not have peripheral edema or peripheral edema. documented in this encounter Plan of Treatment Upcoming Encounters Date Type Department Care Team (Late st Contact Info) Description 07/20/2026 12:00 PM EST Appointment Cardiac Imaging [address] [place] [address] 07/20/2026 1:40 PM EST Office Visit [facility] [address], [address] [place] [address] Phillip Clark MD [address] [place] [address] documented as of this encounter Procedures Procedure Name Priority Date/Time Associated Diagnosis Comments PB POINT OF CARE IMAGING PLACEHOLDER Routine 06/14/2025 2:16 PM EDT PB ANESTHESIA NON-TIMED PROCEDURE PLACEHOLDER Routine 06/14/2025 2:15 PM EDT PB POINT OF CARE IMAGING PLACEHOLDER Routine 06/14/2025 8:32 AM EDT GA INSERT/PLACE FLOW DIRECT CATH Routine 06/14/2025 8:32 AM EDT ANESTHESIA ULTRASOUND GUIDED Routine 06/14/2025 8:32 AM EDT PB ANESTHESIA NON-TIMED PROCEDURE PLACEHOLDER Routine 06/14/2025 8:32 AM EDT GA AN CENTRAL LINE DOUBLE LUMEN Routine 06/14/2025 8:32 AM EDT PB ANESTHESIA PLACEHOLDER Routine 06/14/2025 8:16 AM EDT GA AN ELECTIVE ENDOTRACHEAL AIRWAY Routine 06/14/2025 8:16 AM EDT PB ANESTHESIA NON-TIMED PROCEDURE PLACEHOLDER Routine 06/14/2025 8:08 AM EDT documented in this encounter Results * PB POINT OF CARE IMAGING PLACEHOLDER (06/14/2025 2:16 PM EDT) Narrative Jean Claude Staley MD - 06/14/2025 2:16 PM EDT Jean Claude Staley MD 06/14/2025 4:26 PM Peripheral Block Patient location during procedure: OR Start time: 06/14/2025 2:16 PM Reason for block: post-op pain management Block is at surgeon's request Staffing Performed: Other Anesthesia Staff Anesthesiologist: Jean Claude Staley MD Other anesthesia staff: Ricki Zamarripa DO Preanesthetic Checklist Completed: patient identified, IV checked, site marked, risks and benefits discussed, surgical consent, monitors and equipment checked, pre-op evaluation and timeout performed Peripheral Block Patient position: supine Prep: ChloraPrep Patient monitoring: heart rate, radiation monitor and continuous pulse ox Anesthesia block type: PIF and Subcostal. Laterality: left and right Injection technique: single-shot Guidance: ultrasound guided Ultrasound used for needle placement AND ultrasound image retained Needle Needle type: short-bevel Needle gauge: 22. Needle length: 8 cm. Needle localization: anatomical landmarks and ultrasound guidance Medications Administered: 0.25% ropivacaine - Injection 60 mL - 06/14/2025 2:16:00 PM Assessment Injection assessment: negative aspiration for heme, no paresthesia on injection, local visualized surrounding nerve on ultrasound and incremental injection Paresthesia pain: none Heart rate change: no Slow fractionated injection: yes Additional Notes Skin cleaned w/ CHG prior to procedure. Bilateral PIF blocks performed under US guidance. Aspiration negative for heme. Incremental injection of 15 ml of 0.25% Ropivacaine for each PIF block. Skin cleaned w/ CHG prior to procedure. Bilateral subcostal blocks performed under US guidance. Aspiration negative for heme. Incremental injection of 15 mL of 0.25% Ropivacaine for each subcostal block. us Jean Claude Staley MD ANESTHESIA ORDERABLES Final Resu lt * PB ANESTHESIA NON-TIMED PROCEDURE PLACEHOLDER (06/14/2025 2:15 PM EDT) BSA 2.04 m2 CAR DO NOT SEND Anatomical Region Laterality Modality Other Narrative 06/14/2025 2:15 PM EDT Jean Claude Staley MD 06/14/2025 5:18 PM Procedure Performed: SULTANA General Procedure Information Diagnostic Indications for SULTANA: assessment of ascending aorta, assessment of surgical repair, hemodynamic monitoring, other indication Other indication: Aortic root reconstruction and AVR Location performed: OR Modalities: 3D only, 2D only, pulse wave doppler and continuous wave Dopper Consent given by: PatientIntubated Bite block placed Heart visualized Probe Insertion: Easy Probe Type: Multiplane Preanesthesia Checklist: Patient identified, IV checked, risks and benefits discussed, surgical consent, monitors and equipment checked and pre-op evaluation. Anesthesia Information Performed Other Anesthesia Staff Anesthesiologist: Jean Claude Staley MD Additional Anesthesia Staff: Jennifer Garrido MD Echocardiogram Comments: Pre Bypass LV: Dilated LV with eccentric LVH (1.4 cm). Mildly impaired LV systolic function with a LVEF 50-55%. No wall motion abnormalities RV: normal RV size and thickness based on TAPSE & FAC. Aortic valve: Most likely trileaflet aortic valve but fusion of the right and left commissure at their base noted. The leaflets appear unequal with non-coronary leaflet being the largest, left being the smallest. The edges of non & right leaflet cusp appears thickened with a mal-coaptation. There is severe aortic valve regurgitation with a eccentric jet directed towards the anterior leaflet of the mitral valve. Annulus size: 2.3 cm x 2.6 cm, Sinus: 3.62 cm x 3.9 cm, STJ: 3.16, ascending aorta: 4cm x 4.3 cm. Mitral Valve: Normal valve leaflets with no evidence MR or MS by CFD. Tricuspid valve: Normal valve leaflets. No evidence of pathological flow by CD Pulmonic valve: Normal valve leaflet with mild PI with an eccentric jet. Interatrial septum: No evidence of shunting by CFD Aorta: normal aorta with presence of 3mm atheroma in the distal arch. Pericardium and Pleura: no fluid present Post Bypass: mechanical aortic valve replacement LV: Same as baseline. LVEF of 50% by 3D measurements, on low dose epinephrine gtt (0.03 mcg/kg/min) RV: same as baseline Aortic valve: [place] valve replaced by mechanical valve. New valve is well seated with appropriate movement of valve leaflets. No perivalvular leak. Mean PG of 2mm Hg and AT 55 msec. Aorta: intact after decannulation. Findings were communicated with surgeon. us Jean Claude Staley MD ANESTHESIA ORDERABLES Edited Res ult - Final * GA AN CENTRAL LINE DOUBLE LUMEN, PB ANESTHESIA NON-TIMED PROCEDURE PLACEHOLDER, ANESTHESIA ULTRASOUND GUIDED, GA INSERT/PLACE FLOW DIRECT CATH, PB POINT OF CARE IMAGING PLACEHOLDER (06/14/2025 8:32 AM EDT) Narrative Jean Claude Staley MD - 06/14/2025 8:32 AM EDT Jean Claude Staley MD 06/14/2025 10:14 AM Central Venous Line: Date/Time: 06/14/2025 8:32 AM A central venous line was placed in the OR for the following indication(s): central venous access and CVP monitoring. Sterility preparation included the following: provider hand hygiene performed prior to central venous catheter insertion, all 5 sterile barriers used (gloves, gown, cap, mask, large sterile drape) during central venous catheter insertion, antiseptic used during central venous catheter insertion and skin prep agent completely dried prior to procedure. The patient was placed in Trendelenburg position. Right internal jugular vein was prepped. The site was prepped with Chlorhexidine. A 9 Fr (size), 11.5 (length), introducer double lumen was placed. During the procedure, the following specific steps were taken: target vein identified, needle advanced into vein and blood aspirated and guidewire advanced into vein. Seldinger technique used Procedure performed using ultrasound guidance Sterile gel and probe cover used in ultrasound-guided central venous catheter insertion. Intravenous verification was obtained by ultrasound and venous blood return. Post insertion care included: all ports aspirated, all ports flushed easily, guidewire removed intact, Biopatch applied, line sutured in place and dressing applied. During the procedure the patient experienced: patient tolerated procedure well with no complications. PA Catheter Placed A oximetric, 8 (size) Pulmonary Artery Catheter (PAC) was placed through the Introducer CVL in the right internal jugular vein. The PAC placement was confirmed by pressure tracing changes and SULTANA and secured at 50 cm (depth). The patient experienced the following events during the procedure: patient tolerated procedure well with no complications. Staffing Performed: Other Anesthesia Staff Anesthesiologist: Jean Claude Staley MD Other anesthesia staff: iRcki Zamarripa DO Ultrasound was used to visualize vascular needle entry into the internal jugular vessel AND ultrasound image was retained. Ultrasound was used to visualize vascular needle entry into the internal jugular vein AND ultrasound image was retained. us Jean Claude Staley MD ANESTHESIA ORDERABLES Final Resu lt * GA AN ELECTIVE ENDOTRACHEAL AIRWAY, PB ANESTHESIA PLACEHOLDER (06/14/2025 8:16 AM EDT) Jean Claude Willard MD - 06/14/2025 8:16 AM EDT Jean Claude Staley MD 06/14/2025 10:14 AM Airway Date/Time: 06/14/2025 8:16 AM Reason: elective Airway not difficult General Information and Staff Patient location during procedure: OR Anesthesiologist: Jean Claude Staley MD Other anesthesia staff: Ricki Zamarripa DO Performed: Other Anesthesia Staff Patient Condition Indications for airway management: anesthesia Patient position: sniffing Final Airway Details Final airway type: endotracheal airway Successful airway: ETT Cuffed: yes Successful intubation technique: direct laryngoscopy Adjuncts used in placement: intubating stylet Endotracheal tube insertion site: oral Blade: Mateusz Blade size: #3 ETT size (mm): 8.0 Cormack-Lehane Classification: grade I - full view of glottis Placement verified by: chest auscultation and capnometry Cuff volume (mL): 7 Measured from: lips ETT to lips (cm): 22 Ventilation between attempts: none Additional Comments Atraumatic. No change to dentition. Result [facility] Jean Claude Staley MD ANESTHESIA ORDERABLES Final Resu lt * PB ANESTHESIA NON-TIMED PROCEDURE PLACEHOLDER (06/14/2025 8:08 AM EDT) Jean Claude Willard MD - 06/14/2025 8:08 AM EDT Jean Claude Staley MD 06/14/2025 10:14 AM Arterial Line: Date/Time: 06/14/2025 8:08 AM An arterial line was placed. Procedure performed using ultrasound guidance in the OR for the following indication(s): continuous blood pressure monitoring and blood sampling needed. A 20 gauge (size), 1 and 3/4 inch (length), Arrow (type) catheter was placed into the brachial artery and secured by suture. Seldinger technique used Events: patient tolerated procedure well with no complications. Additional notes: One attempt right radial, very calcified, successful flash but unable to thread. Moved proximally on extremity to brachial artery. Successful placement brachial artery Staffing Performed: Other Anesthesia Staff Anesthesiologist: Jean Claude Staley MD Other anesthesia staff: Ricki Zamarripa DO Jean Claude Staley MD ANESTHESIA ORDERABLES Final Resu lt documented in this encounter Visit Diagnoses Not on filedocumented in this encounter Administered Medications Inactive Administered Medications - up to 3 most recent administrations Medication Order MAR Action Action Date Dose Rate Site calcium chloride 10 % injection Intravenous, As needed, Starting on Fri06/14/25 at 1255, Until Fri06/14/25 at 1440, Routine, Anesthesia Intraprocedure Given 06/14/2025 1:44 PM EDT 0.2 g Given 06/14/2025 1:27 PM EDT 0.3 g Given 06/14/2025 1:24 PM EDT 0.3 g Cardioplegia del Nido Formula OR infusion Perfusion, As needed, Starting on Fri06/14/25 at 0957, Until Fri06/14/25 at 1440, Routine Given 06/14/2025 11:15 AM EDT 300 mL Given 06/14/2025 10:14 AM EDT 150 mL Given 06/14/2025 10:11 AM EDT 200 mL ceFAZolin (Ancef) injection 2 g 2 g, Intravenous, Once, 1 dose, On Fri06/14/25 at 0830, Routine, Anesthesia Intraprocedure Given 06/14/2025 12:41 PM EDT 2 g Given 06/14/2025 8:47 AM EDT 2 g clevidipine (Cleviprex) 0.5 MG/ML infusion Intravenous, Continuous PRN, Starting on Fri06/14/25 at 1232, Until Fri06/14/25 at 1440, Routine, Anesthesia Intraprocedure Rate/Dose Change 06/14/2025 2:25 PM EDT 7 mg/hr 14 mL/hr Rate/Dose Change 06/14/2025 1:36 PM EDT 9 mg/hr 18 mL/h r Rate/Dose Change 06/14/2025 1:34 PM EDT 7 mg/hr 14 mL/h r dexmedetomidine in NS (Precedex) 4 mcg/mL infusion Intravenous, As needed, Starting on Fri06/14/25 at 1309, Until Fri06/14/25 at 1440, Routine Given 06/14/2025 1:28 PM EDT 12 mcg Given 06/14/2025 1:09 PM EDT 12 mcg EPINEPHrine infusion 8 mg in NS 250 mL (0.032 mg/mL) (compounding pharmacy premix) Intravenous, Continuous PRN, Starting on Fri06/14/25 at 0818, Until Fri06/14/25 at 1440, Routine, Anesthesia Intraprocedure Rate/Dose Change 06/14/2025 2:25 PM EDT 1 mcg/kg/min 164.625 mL/hr Rate/Dose Change 06/14/2025 12:28 PM EDT 0.04 mcg/kg/min 6 .585 mL/hr Restarted 06/14/2025 12:06 PM EDT 0.02 mcg/kg/min 3.293 m L/hr fentaNYL (Sublimaze) injection Intravenous, As needed, Starting on Fri06/14/25 at 0812, Until Fri06/14/25 at 1440, Routine, Anesthesia Intraprocedure Given 06/14/2025 9:04 AM EDT 150 mcg Given 06/14/2025 9:00 AM EDT 100 mcg Given 06/14/2025 8:56 AM EDT 150 mcg heparin (porcine) injection Intravenous, As needed, Starting on Fri06/14/25 at 0925, Until Fri06/14/25 at 1440, Routine, Anesthesia Intraprocedure Given 06/14/2025 9:25 AM EDT 35,000 Units heparin (porcine) injection Intravenous, As needed, Starting on Fri06/14/25 at 1131, Until Fri06/14/25 at 1440, Routine, Anesthesia Intraprocedure Given 06/14/2025 12:21 PM EDT 2,000 Units Given 06/14/2025 11:31 AM EDT 5,000 Units insulin regular in sodium chloride 0.9 % 1 UNIT/ML infusion Intravenous, Continuous PRN, Starting on Fri06/14/25 at 0942, Until Fri06/14/25 at 1440, Routine, Anesthesia Intraprocedure Rate/Dose Change 06/14/2025 12:55 PM EDT 2 Units/hr 2 mL/hr Restarted 06/14/2025 11:18 AM EDT 1 Units/hr 1 mL/hr New Bag 06/14/2025 9:42 AM EDT 1 Units/hr 1 mL/hr lactated Ringer's infusion Intravenous, Continuous PRN, Starting on Fri06/14/25 at 0814, Until Fri06/14/25 at 1440, Routine New Bag 06/14/2025 8:14 AM EDT lidocaine PF (Xylocaine) 2 % injection Intravenous, As needed, Starting on Fri06/14/25 at 0812, Until Fri06/14/25 at 1440, Routine, Anesthesia Intraprocedure Given 06/14/2025 8:12 AM EDT 80 mg magnesium sulfate 4 g in sodium chloride 0.9 % 100 mL IVPB Intravenous, Continuous PRN, Starting on Fri06/14/25 at 1057, Until Fri06/14/25 at 1440, Routine New Bag 06/14/2025 10:57 AM EDT 4 g midazolam (Versed) injection Intravenous, As needed, Starting on Fri06/14/25 at 0750, Until Fri06/14/25 at 1440, Routine, Anesthesia Intraprocedure Given 06/14/2025 1:47 PM EDT 1 m g Given 06/14/2025 8:12 AM EDT 2 mg Given 06/14/2025 8:02 AM EDT 1 mg niCARdipine (Cardene) injection Intravenous, As needed, Starting on Fri06/14/25 at 0916, Until Fri06/14/25 at 1440, Routine, Anesthesia Intraprocedure Given 06/14/2025 9:16 AM EDT 125 mcg nitroglycerin (Tridil) 50 mg in 250 mL D5W (200 mcg/mL) infusion Intravenous, Continuous PRN, Starting on Fri06/14/25 at 0911, Until Fri06/14/25 at 1440, STAT, Anesthesia Intraprocedure New Bag 06/14/2025 9:11 AM EDT 0.1 mcg/kg/min 2.634 mL/hr nitroglycerin (Tridil) in D5W IV solution 100 mcg/mL Intravenous, As needed, Starting on Fri06/14/25 at 0901, Until Fri06/14/25 at 1440, Routine, Anesthesia Intraprocedure Given 06/14/2025 1:35 PM EDT 50 mcg Given 06/14/2025 1:00 PM EDT 100 mcg Given 06/14/2025 12:53 PM EDT 50 mcg norepinephrine (Levophed) injection Intravenous, As needed, Starting on Fri06/14/25 at 0928, Until Fri06/14/25 at 1440, Routine, Anesthesia Intraprocedure Given 06/14/2025 9:28 AM EDT 8 m cg phenylephrine (Vazculep) injection Intravenous, As needed, Starting on Fri06/14/25 at 0943, Until Fri06/14/25 at 1440, Routine, Anesthesia Intraprocedure Given 06/14/2025 12:27 PM EDT 10 0 mcg Given 06/14/2025 12:09 PM EDT 100 mcg Given 06/14/2025 12:07 PM EDT 100 mcg Prime for CPB (OSM) Perfusion, Continuous PRN, Starting on Fri06/14/25 at 0757, Until Fri06/14/25 at 1440, Routine New Bag 06/14/2025 7:57 AM EDT 1,000 mL propofol (Diprivan) injection Intravenous, As needed, Starting on Fri06/14/25 at 0812, Until Fri06/14/25 at 1440, Routine, Anesthesia Intraprocedure Given 06/14/2025 8:55 AM EDT 20 mg Given 06/14/2025 8:54 AM EDT 20 mg Given 06/14/2025 8:12 AM EDT 50 mg protamine injection Intravenous, As needed, Starting on Fri06/14/25 at 1238, Until Fri06/14/25 at 1440, Routine, Anesthesia Intraprocedure Given 06/14/2025 1:04 PM EDT 50 mg Given 06/14/2025 12:42 PM EDT 160 mg Given 06/14/2025 12:40 PM EDT 70 mg rocuronium (ZeMuron) injection Intravenous, As needed, Starting on Fri06/14/25 at 0812, Until Fri06/14/25 at 1440, Routine, Anesthesia Intraprocedure Given 06/14/2025 12:00 PM EDT 30 mg Given 06/14/2025 10:39 AM EDT 30 mg Given 06/14/2025 9:29 AM EDT 20 mg ropivacaine (Naropin) injection Injection, Once PRN Procedure, Starting on Fri06/14/25 at 1416, Until Fri06/14/25 at 1416, Routine, Anesthesia Intraprocedure Given 06/14/2025 2:16 PM EDT 60 mL sodium chloride 0.9 % infusion Intravenous, Continuous PRN, Starting on Fri06/14/25 at 0832, Until Fri06/14/25 at 1440, Routine Rate/Dose Change 06/14/2025 12:34 PM EDT 75 mL/hr New Bag 06/14/2025 8:32 AM EDT 50 mL/hr tranexamic acid (Cyklokapron) 1 mg in sodium chloride 0.9 % 100 mL (0.01 mg/mL) IVPB Intravenous, Continuous PRN, Starting on Fri06/14/25 at 0925, Until Fri06/14/25 at 1440, Routine New Bag 06/14/2025 9:25 AM EDT 1 mg/kg/hr 8780 mL/hr tranexamic acid (Cyklokapron) injection Intravenous, As needed, Starting on Fri06/14/25 at 0925, Until Fri06/14/25 at 1440, Routine, Anesthesia Intraprocedure Given 06/14/2025 9:25 AM EDT 878 mg documented in this encounter Additional Health Concerns Assessment Noted Time A fall risk assessment has been complete d for the patient 06/09/2025 12:15 PM EDT A Body Mass Index follow-up plan has been documented for the patient 06/20/2025 10:30 AM EDT documented as of this encounter Care Teams Cushion Worker Relationship Specialty [place] [id number] PCP - General 02/28/25 documented as of this encounter
--- OUTSIDE RECORDS SUMMARY | 2025-06-14 06:45 | XMS_ITS | Encounter Summary ---
Author Organization [facility] Address [address] [id number] Care Team Providers Care Carrier Driver Name Role Phone Kamran Singh MD Primary Care Provider [phone] Reason for Visit * Auth/Cert (Routine) Specialty Diagnoses / Procedures Referred By Nathalia t Referred To Contact Diagnoses Severe aortic regurgitation Severe aortic regurgitation [I35.1] Procedures RI -AORT GRF W/CARD BYP F/AORTIC DISSECTION AORTIC ROOT RECONSTRUCTION Phillip Clark MD [address] [address] Phone: tel: fax: [facility] [address] [place] [address] Phone: tel: Referral ID Status Reason Start Date Expiration Date Visits Re quested Visits Authorized [id number] 1 1 Encounter Details Date Type Department Care Team (Late st Contact Info) Description 06/14/2025 7:45 AM EDT - 06/14/2025 8:15 PM EDT Surgery [facility] [address] [place] [id number] Phillip Clark MD [address] [facility] [place] [address] Aortic valve replacement [89911 (CPT )] Surgery Details Date/Time Status Location OR Service Patient Class Case Class Case Type Trauma Case? 06/14/2025 7:45 AM Posted AD OR [facility] OR 14 Cardiothoracic Surgery Surgery Admit E-Elect sylwia Panel 1 Procedure LRB Anes Op Region Wound Class Comments Aortic valve replacement N/A General Surgeon Surgeon Role Service Panel Phillip Clark MD Primary Cardiothoracic Surg penny 1 Turner Pablo MD Fellow Cardiothoracic Surger y 1 documented in this encounter Social History Tobacco [...] time in the past 12 m [facility], were you homeless or living in a fpc (including now)? No 06/15/2025 [facility] Utilities Answer Date Recorded In the past 12 months has th e [employer], gas, oil, or water [employer] threatened to shut off services in your home? No 06/15/2025 Sex and Gender Information Value Date Recorded Sex Assigned at Not on file Legal Sex Male 7:47 PM EDT Gender Identity Not on file Sexual Orientation Not on file documented as of this encounter Last Filed Vital Signs Vital Sign Reading Time Taken Comments Blood Pressure 154/52 06/14/2025 6:30 AM EDT Pulse 74 06/14/2025 8:00 PM EDT Temperature 37.6 C (99.7 F) 06/14/2025 8:00 PM EDT Respiratory Rate 22 06/14/2025 8:00 PM EDT Oxygen Saturation 97% 06/14/2025 8:00 PM EDT Inhaled Oxygen Concentration - - Weight 87.8 kg (193 lb 9 oz) 06/14/2025 6:20 AM EDT Height 170.2 cm (5' 7 ) 06/14/2025 6:20 AM EDT Body Mass Index 29.56 06/14/2025 6:20 AM EDT documented in this encounter Discharge Instructions * Discharge Instructions* [...] a referral and prefers to attend at [facility]. [facility] will contact Mr. Forrest to discuss and [...] 2. Eligibility: Heart valve surgery 3. Exceptions/exclusions: [facility] Cardiac Rehab Exclusions: None 4. Referral: [facility] Cardiac Rehab Referral: Patient agreed with referral to the cardiac rehabilitation program at [facility] in [place], [place], phone number [phone]. 5. Information sent: Information Sent: Appropriate information will be sent to the receiving cardiac rehabilitation program.: * Progress Notes - Oumou Berger - 06/20/2025 10:15 AM EDT Case Management Discharge Note Bradley Forrest 69 y.o. male CSN: [id number] Admission: 06/14/2025 5:18 AM Primary Problem: Aortic valve regurgitation Primary Harvest Supervisor: Primary Caregiver: Self Assistance Available at Discharge: Current Outpatient/Agency/Support Group: DME Availability of Care Givers (#Hours): Other (comment) (As needed) Family/Harvest Supervisor(s) Willingness Assessed to care for patient at home: Yes Family/Harvest Supervisor(s) Readiness Assessed to care for patient [...] Notice Completed: 06/20/25 Time Second Notice Completed: 845 Medicare Second Notice Recieved By: patient Follow-up: Jolynn Pollard APRN [facility] Cardiology [address] [place] [address] [address] [address] Go on 08/22/2025 Your cardiology appointment is on August 22 at 11am Please arrive 15 minutes early and bring UPDATED medication list. [address] [facility] [id number] Go on 06/22/2025 Your first appointment for your Warfarin/Coumadin management is this FridayJune 22 at 11:30am. Please report to [facility] front admission desk and tell them you are checking in to the Pharmacy Anticoagulation Clinic. The out of town collection clerk will call the pharmacist who will meet you in the lobby and escort you to the clinic. Please bring all medications you are taking and your insurance card. If you have any issues please call [phone] ext: [phone] and then choose option 2. Discharge Transportation: Transportation Anticipated: family or friend will provide Transportation Home at Discharge: Family/Friend will Provide Follow Up Transport: Transportation Needed to Follow up Appoinments: Family/Friend will Provide Additional Comments: SW spoke with primary team this date who indicate the pt is medically stable for DC this date and does not require further [facility]-based care. Pt to DC home with , to transport. Covering RNCM ordered rollator from [facility] to be delivered to bedside. No further SW concerns identified at this time. SW will continue to remain available and will follow up with DC planning and needs as appropriate. DIMPLE Osullivan * Discharge Summary - Angie Abarca ACCOUNT ANALYST - 06/20/2025 9:40 AM EDT Hospitalization Admit Date/Time: 06/14/2025 5:18 AM Admitting Attending: Phillip Clark Discharge Date: 06/20/2025 Discharge Attending Physician: Phillip Clark MD PCP name and Address: Kamran Singh MD [address] [place] [address] / [place] [address] Referring provider name and address: No referring [...] procedure, patient was taken to the CVICU whereM was consulted for ongoing critical care management. [...] Your Medications These medications were sent to [facility] - [place], [place] - [address] [facility] [address] acetaminophen 325 MG tablet clopidogrel 75 MG [...] Center 07/07/2025 2:40 PM Phillip Clark MD [facility] Test Results Pending At Discharge N/A Pertinent [...] Plan Anticoagulation Plan Warfarin Pharmacist Managed?: No [facility] Warfarin Dosing Protocol Followed?: No Reason for Protocol Departure: CT Surgery Bridging Agent in Conjunction With Warfarin? : No INR Monitoring Frequency: Monitor INR daily Patient Education : Complete and documented Warfarin dosing and adjustment per CT surgery provider. Transitions of Care Outpatient provider managing warfarin after [facility] discharge: TBD - possibly [facility] Recommended date for outpatient INR assessment: TBD - of note, enoxparin copay $0 for 7 day supply Will continue to follow patient's clinical progress daily. Frank BernalD, BCCP Clinical Pharmacist - Cardiothoracic Surgery Available via Phone.[email or web address] * Progress Notes - Phillip Clark MD [...] to Surgery Flowsheets (Taken 06/19/20251704 by Vicente Hussein, HESHAM) Supportive Measures: active listening utilized Family/Support System [...] Ventilation Flowsheets (Taken 06/19/20251704 by Vicente Hussein, RN) Chest Tube Safety: suction checked Problem: Fall Injury Risk Goal: Absence of Fall and Fall-Related Injury Outcome: Ongoing, Progressing Intervention: Identify and Manage Contributors Flowsheets (Taken 06/19/20251704 by Vicente Hussein RN) Medication Review/Management: medications reviewed Self-Care Promotion: [...] Ongoing, Progressing Intervention: Promote Activity and Functional [place] Flowsheets (Taken 06/19/20251704 by Vicente Hussein RN) Activity Assistance Provided: assistance, stand-by Adaptive Equipment Use: use encouraged Self-Care Promotion: independence encouraged Problem: Self-Care Deficit Goal: Improved Ability to Complete Activities of Daily Living Outcome: Ongoing, Progressing Intervention: Promote Activity and Functional [place] Flowsheets (Taken 06/19/20251704 by Vicente Hussein, HESHAM) Activity Assistance Provided: assistance, stand-by Adaptive Equipment Use: use encouraged Self-Care Promotion: independence encouraged Problem: Wound Goal: Optimal Coping Outcome: Ongoing, Progressing Intervention: Support Patient and Family Response Flowsheets (Taken 06/19/20251704 by Vicetne Hussein RN) Supportive Measures: active listening utilized [...] Fears or Concerns: pain control 06/19/20251704 by Vicnete Hussein RN Outcome: Ongoing, Progressing Goal: Absence [...] RN Outcome: Ongoing, Progressing 06/19/20251704 by Vicente Husesin RN Outcome: Ongoing, Progressing Intervention: Optimize Psychosocial [...] Ongoing, Progressing Intervention: Promote Activity and Functional [place] Flowsheets (Taken 06/19/20251704) Activity Assistance Provided: assistance, [...] Ongoing, Progressing Intervention: Promote Activity and Functional [place] Flowsheets (Taken 06/19/2025 1705) Activity Assistance Provided: assistance, stand-by Adaptive Equipment Use: use encouraged Self-Care Promotion: independence encouraged * Progress Notes - Prashant Aguilar, PharmD - 06/19/2025 1:22 PM EDT Antithrombosis Monitoring: [...] Plan Anticoagulation Plan Warfarin Pharmacist Managed?: No [facility] Warfarin Dosing Protocol Followed?: No Reason for Protocol Departure: CT Surgery Bridging Agent in Conjunction With Warfarin? : No Goal PTT/anti-Xa: 2.5-3.5 INR Monitoring Frequency: Monitor INR daily Patient Education : Complete and documented Warfarin dosing and adjustment per CT surgery provider. Transitions of Care Outpatient provider managing warfarin after [facility] discharge: TBD - possibly clinic Recommended [...] rhythm - continue warfarin CT surgery pager [phone] [1] acetaminophen, 650 mg, Oral, q4h DEMETRIUS [...] scheduled Intervention: Prevent Skin Injury Flowsheets Taken 06/19/2025344 Skin Protection: incontinence pads utilized Taken 06/19/2025 0200 Body Position: weight shifting Intervention: Prevent and Manage VTE (Venous Thromboembolism) Risk Flowsheets (Taken 06/19/2025 0000) VTE Prevention/Management: medication Intervention: Prevent Infection Flowsheets (Taken 06/19/2025344) Infection Prevention: hand hygiene promoted personal protective [...] Ongoing, Progressing Intervention: Promote Activity and Functional [place] Flowsheets (Taken 06/19/2025344) Activity Assistance Provided: assistance, stand-by Self-Care Promotion: independence encouraged Problem: Self-Care Deficit Goal: Improved Ability to Complete Activities of Daily Living Outcome: Ongoing, Progressing Intervention: Promote Activity and Functional [place] Flowsheets (Taken 06/19/2025344) Activity Assistance Provided: assistance, [...] Progressing Intervention: Optimize Skin Protection Flowsheets (Taken 06/19/2025 034) Activity Management: activity encouraged dorsiflexion/plantar flexion performed Pressure Reduction Techniques: weight shift assistance provided heels elevated off bed Pressure Reduction Devices: positioning supports utilized Skin Protection: specialty mattress utilized tubing/devices free from skin contact Head of Bed (HOB) Positioning: HOB elevated Goal: Optimal Wound Healing Outcome: Ongoing, Progressing Intervention: Promote Wound Healing Flowsheets (Taken 06/19/2025 034) Sleep/Rest Enhancement: awakenings minimized consistent schedule promoted regular sleep/rest pattern promoted room darkened * Brittaney Blake RN - 06/18/2025 6:29 PM EDT Images from the original note were not included. [id number] Tratamiento para contracciones ventriculares prematuras (CVP) Las [...] Confusi??n. Last Reviewed Date: 2024 00:00:00 ?? 4995-4379 Over[employer]. All rights reserved. This information is not intended as a substitute for professional medical care. Always follow your healthcare professional's instructions. * Gabriel Singh - Brittaney Dumas RN - 06/18/2025 6:29 PM EDT Images from the original note were not included. [id number] C??mo comprender las contracciones ventriculares prematuras (CVP) [...] se??al activa partes cercanas del coraz??n contraer. [place] permite que el coraz??n se comprima de [...] card??acos anteriores, el coraz??n expulsar?? muypoca mushtaq. [place] provoca aria sensaci??n de pausa entre latidos. El siguiente latido card??aco suele ser m??s bea, ya que la pausa lo permite que el coraz??n descanse y se llene de mushtaq. [place] lleva a aria sensaci??n de latido card??aco [...] port??til jameson unos d??as o incluso semanas. [place] puede ayudar a diagnosticar los CVP que [...] im??genes del coraz??n. ? An??lisis de mushtaq. [place] se hace para comprobar los electrolitos y concentraciones tiroideas. Last Reviewed Date: 2024 00:00:00 ?? [id number] The [employer]. All rights reserved. This information is not intended as a substitute for professional medical care. Always follow your healthcare professional's instructions. * Gabriel OnTRISTAN - Brittaney Dumas RN - 06/18/2025 6:29 PM EDT Images from the original note were not included. [id number] Tratamiento para contracciones ventriculares prematuras (CVP) Las [...] Confusi??n. Last Reviewed Date: 2024 00:00:00 ?? [id number] The [employer]. All rights reserved. This information is not intended as a substitute for professional medical care. Always follow your healthcare professional's instructions. * Gabriel GonsalezFHALONZO - Brittaney Dumas RN - 06/18/2025 6:29 PM EDT Images from the original note were not included. [id number] C??mo comprender las contracciones ventriculares prematuras (CVP) [...] se??al activa partes cercanas del coraz??n contraer. [place] permite que el coraz??n se comprima de [...] card??acos anteriores, el coraz??n expulsar?? muypoca mushtaq. [place] provoca aria sensaci??n de pausa entre latidos. El siguiente latido card??aco suele ser m??s bea, ya que la pausa lo permite que el coraz??n descanse y se llene de mushtaq. [place] lleva a aria sensaci??n de latido card??aco [...] port??til jameson unos d??as o incluso semanas. [place] puede ayudar a diagnosticar los CVP que [...] im??genes del coraz??n. ? An??lisis de mushtaq. [place] se hace para comprobar los electrolitos y concentraciones tiroideas. Last Reviewed Date: 2024 00:00:00 ?? [id number] [employer]. All rights reserved. This information is not intended as a substitute for professional medical care. Always follow your healthcare professional's instructions. * Gabriel Singh - Brittaney Dumas RN - 06/18/2025 6:28 PM EDT Images from the original note were not included. 13579 Treatment for Premature Ventricular Contractions (PVCs) Premature [...] confusion Last Reviewed Date: 2024 00:00:00 ?? [id number] The [employer]. All rights reserved. This information is not intended as a substitute for professional medical care. Always follow your healthcare professional's instructions. * Gabriel Lori Hazelily HESHAM Webster - 06/18/2025 6:28 PM EDT Images from the original note were not included. 13953 Understanding Premature Ventricular Contractions (PVCs) Premature ventricular [...] to 2 weeks. ? Insertable (or implantable) satellite project site monitor. This small device is implanted under [...] levels. Last Reviewed Date: 2024 00:00:00 ?? 7103-4396 The [employer]. All rights reserved. This information is not [...] Plan Anticoagulation Plan Warfarin Pharmacist Managed?: No [facility] Warfarin Dosing Protocol Followed?: No Bridging Agent in Conjunction With Warfarin? : Yes Ordered Agents: Enoxaparin Bridging Agent Dose: 70mg BID INR Monitoring Frequency: Monitor INR daily Patient Education : Complete and documented Warfarin dosing and adjustment per CT surgery provider. Transitions of Care Outpatient provider managing warfarin after [facility] discharge: TBD - possibly clinic Recommended [...] Progressing Flowsheets (Taken 06/18/2025 0059 by Lori Molina RN) Progress: improving Outcome Evaluation: Plan of [...] Care Review Outcome: Ongoing, Progressing Flowsheets (Taken 06/18/202558) Progress: improving Outcome Evaluation: Plan of care [...] 06/18/2025 0000 Body Position: weight shifting Taken 06/17/2025108 Skin [...] Progressing Intervention: Optimize Mobility Flowsheets Taken 06/18/2025 0000 Activity Management: activity encouraged dorsiflexion/plantar flexion performed Taken 06/17/2025108 Assistive Device Utilized: four wheel walker Positioning/Transfer Devices: pillows Problem: Self-Care Deficit Goal: Improved Ability to Complete Activities of Daily Living Outcome: Ongoing, Progressing Intervention: Promote Activity and Functional [place] Flowsheets (Taken 06/18/202558) Activity Assistance Provided: assistance, 1 person Self-Care Promotion: independence encouraged Problem: Self-Care Deficit Goal: Improved Ability to Complete Activities of Daily Living Outcome: Ongoing, Progressing Intervention: Promote Activity and Functional [place] Flowsheets (Taken 06/18/202558) Activity Assistance Provided: assistance, [...] part of the patient's medical record. * Gabriel Singh - Sydni Munson RN - 06/17/2025 12:42 PM EDT Images from the original note were not included. [id number] Warfarin IMPORTANT WARNING: Warfarin may cause severe [...] doctor or pharmacist will give you the leave specialist's patient information sheet (Medication Guide) when you begin treatment with warfarin and each time you refill your prescription. Read the information carefully and ask your doctor or pharmacist if you have any questions. You can also visit the Food and Drug Administration (FDA) website (https://www.fda.gov/downloads/Drugs/DrugSafety/pyd510206.pdf) or the leave specialist's website to obtain the Medication Guide. Talk [...] Echinacea, garlic, Ginkgo biloba, ginseng, goldenseal, and Jud's wort; omeprazole (Prilosec); famotidine (Pepcid AC); aspirin [...] amounts of vitamin K-containing food on a dijn-gs-mrrv basis. Do not eat large amounts of [...] of all of the prescription and nonprescription (wkxp-gxd-vqdmtfi) medicines, vitamins, minerals, and dietary supplements you [...] or pharmacist about specific clinical use. The [employer] represents that the information provided hereunder was formulated with a reasonable standard of care, and in conformity with professional standards in the field. The [employer] makes no representations or warranties, express or implied, including, but not limited to, any implied warranty of merchantability and/or fitness for a particular purpose, with respect to such information and specifically disclaims all such warranties. Users are advised that decisions regarding drug therapy are complex medical decisions requiring the independent, informed decision of an appropriate health childcare worker, and the information is provided for informational purposes only. The entire monograph for a drug should be reviewed for a thorough understanding of the drug's actions, uses and side effects. The [employer] does not endorse or recommend the use of any drug.The information is not a substitute for medical care. AHFS?? Patient Medication Information?. ?? Copyright, 2023. The [employer]??, [address], [address], [place], [place]. All Rights Reserved. Duplication for commercial use must be authorized by [facility]. Selected Revisions: February 13, 2017. AHFS?? Patient Medication Information?. ?? Copyright, 2024 * Gabriel Singh - Sydni Munson RN - 06/17/2025 12:42 PM EDT Images from the original note were not included. 34487 Recovery From Heart Surgery: The First Few [...] stop Last Reviewed Date: 2024 00:00:00 ?? [id number] The [employer]. All rights reserved. This information is not [...] arms away from your body. * Gabriel [facility] - Sydni Munson RN - 06/17/2025 12:42 PM EDT Images from the original note were not included. 65734 After Heart Valve Surgery For the first [...] headache Last Reviewed Date: 2023 00:00:00 ?? 8117-1332 Over[employer]. All rights reserved. This information is not intended as a substitute for professional medical care. Always follow your healthcare professional's instructions. * Discharge Instr - Other Orders - Sydni Munson RN - 06/17/2025 12:39 PM EDT Please arrive 30 minutes early for your appointment with Dr. Clark Prior to your appointment, go to the radiology department on the 1st floor of the [facility] near [facility] for a chest x-ray. Then [...] your incisions. Do NOT lift, push, or supervisor pullet farm 5 pounds for six weeks. Do NOT [...] Sydni Munson CT Surgery Nurse Navigator at [phone] Friday through Friday 7am- 3:30pm [facility] [phone] after 3:30 pm, weekends and holidays - ask for the CT surgeon manager valuation. * Progress Notes - Brooke Valdez PTA - 06/17/2025 11:58 AM EDT Physical Therapy Treatment Patient Name: Bradley Forrest Today's Date: 06/17/2025 Total Treatment Time: 39 min PT Discharge Recommendations: Home with assistance Equipment Recommended: Rollator Subjective The patient states, I am doing okay. Participants in Care Family/Caregiver Present: Yes Family/Caregiver: Spouse, Other (Specify) (sister and brother) Group Work Program Director: Not Applicable Presentation Oxygen: None (Room air) [...] sequencing. Bed Mobility Exam: Rolling/Turning Level of [place]: Minimum assist (75% patient effort) Physical/Nonphysical Assist: Verbal Cues, Set-up required Bed Mobility Exam: Scooting/Bridging Level of [place]: Minimum assist (75% patient's effort) (to scoot to edge of bed with cues to adhere to sternal precautions) Physical/Nonphysical Assist: Verbal Cues, Set-up required Bed Mobility Exam: Supine to Sit Level of [place]: Minimum assist (75% patient's effort) Physical/Nonphysical Assist: Verbal Cues, Set-up required, Additional assist utilized for safety Bed Mobility Exam: Sit to Supine Level of [place]: Minimum assist (75% patient's effort) Physical/Nonphysical Assist: Verbal Cues, Set-up required, Additional assist utilized for safety Transfers Transfer Intervention: Verbal cues provided for correct bilateral hand and foot placement during sit to stand transfers. Transfer Interventions: The patient stood at the sink for hygiene approximately 8-10 minutes with CGA of 1 person. Transfer Exam: Sit to stand Level of [place]: Contact guard Physical/Nonphysical Assist: Verbal Cues, Set-up required Assistive Device: Rollator Transfer Exam: Stand to Sit Level of [place]: Contact guard Physical/Nonphysical Assist: Verbal Cues, Set-up [...] assist 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) Level of Mobility Ambulatory- community Mobility [place] Independent gait without device History of Falls [...] Visitors Present Yes Spouse (sister and brother) Group Work Program Director (if applicable) OBJECTIVE PAIN Pain Score (0-10): [...] for toileting and grooming tasks. Level of [place] Adaptive Equipment Utilized Comments Feeding Grooming SBA Standing sinkside stood times 8 minutes in bathroom. Bathing Upper Body Dressing Lower Body Dressing Sock Level of Assistance: Moderate assistance, Minimal verbal cues Toileting SBA Toilet IADLs Health Management Community Re-Entry BALANCE Postural Appearance INTERVENTIONS Level of [place] Balance Support Comments Static Sit Standby assist [...] weight shifting to promote safety. Level of [place] Physical/Non-physical Assist Adaptive Equipment Utilized Rolling/ Turning [...] Plan Anticoagulation Plan Warfarin Pharmacist Managed?: No [facility] Warfarin Dosing Protocol Followed?: No Bridging Agent in Conjunction With Warfarin? : Yes Ordered Agents: Enoxaparin Bridging Agent Dose: 70mg BID INR Monitoring Frequency: Monitor INR daily Patient Education : Complete and documented Warfarin dosing and adjustment per CT surgery provider. Transitions of Care Outpatient provider managing warfarin after [facility] discharge: TBD - possibly [facility] Recommended date for outpatient INR assessment: TBD - of note, enoxparin copay $0 for 7 day supply Will continue to follow patient's clinical progress daily. Maria Esther Kent PharmD, ARLEEN, BCCCP, [facility] Critical Care Pharmacist - Cardiothoracic Surgery Contact via secure chat * Gabriel Singh - Maria Esther Kent PharmD - 06/17/2025 9:21 AM EDT Images from the original note were not included. Your Health Checklist: Taking Warfarin Safely - Video Follow this checklist to properly and safely take warfarin. To view the video go to this web address: [email or web address] Or, scan this QR code with your smart phone ?? [facility] * Gabriel Singh - Maria Esther Kent PharmD - 06/17/2025 9:21 AM EDT Images from the original note were not included. Your Health Checklist: Preventing Injuries While Taking Warfarin - Video Follow this checklist to help prevent common injuries while on warfarin, and what to do in case of emergency. To view the video go to this web address: [email or web address] Or, scan this QR code with your smart phone ?? [facility] * Maria Esther Houston PharmD - 06/17/2025 9:21 AM EDT Images from the original note were not included. Warfarin: Your INR Goal - Video Understand what the INR test measures, and what your healthy INR level should be. To view the video go to this web address: [email or web address].[email or web address] Or, scan this QR code with your [...] the video go to this web address: https://bit.ly/6YB7Afq Or, scan this QR code with your [...] Certain other vegetables and fruits, including asparagus, Rydal sprouts, and kiwifruit ? Certain soy products, such as natto (a traditional [place]itanian dish of fermented soybeans) Some vegetable oils [...] reduced-fat cheese, served with a whole grain Argentine muffin ? A grilled chicken sandwich on whole grain bread with raw spinach*, tomato slices, and mustard ? Oven-roasted fish served with steamed broccoli* and medley of whole grain pasta, carrots, onions,and mushrooms * Foods higher in vitamin K Last Reviewed Date: 2025 00:00:00 ?? [id number] [employer]. All rights reserved. This information is not intended as a substitute for professional medical care. Always follow your healthcare professional's instructions. * Gabriel Singh - Maria Esther Kent, PharmD - 06/17/2025 9:21 AM EDT Images [...] the video go to this web address: https://bit.ly/[email or web address] Or, scan this QR code with your smart phone ?? [facility] * Maria Esther Houston PharmD - 06/17/2025 9:21 AM EDT Images from the original note were not included. [id number] Warfarin IMPORTANT WARNING: Warfarin may cause severe [...] doctor or pharmacist will give you the leave specialist's patient information sheet (Medication Guide) when you begin treatment with warfarin and each time you refill your prescription. Read the information carefully and ask your doctor or pharmacist if you have any questions. You can also visit the Food and Drug Administration (FDA) website (https://www.fda.gov/downloads/Drugs/DrugSafety/lrh697967.pdf) or the leave specialist's website to obtain the Medication Guide. Talk [...] Echinacea, garlic, Ginkgo biloba, ginseng, goldenseal, and Jud's wort; omeprazole (Prilosec); famotidine (Pepcid AC); aspirin [...] amounts of vitamin K-containing food on a wdzo-ek-qvap basis. Do not eat large amounts of [...] be awakened, immediately call emergency services at 921. Symptoms of overdose may include the following: [...] of all of the prescription and nonprescription (qklr-hih-jdnlkhi) medicines, vitamins, minerals, and dietary supplements you [...] or pharmacist about specific clinical use. The [employer] represents that the information provided hereunder was formulated with a reasonable standard of care, and in conformity with professional standards in the field. The [employer] makes no representations or warranties, express or implied, including, but not limited to, any implied warranty of merchantability and/or fitness for a particular purpose, with respect to such information and specifically disclaims all such warranties. Users are advised that decisions regarding drug therapy are complex medical decisions requiring the independent, informed decision of an appropriate health childcare worker, and the information is provided for informational purposes only. The entire monograph for a drug should be reviewed for a thorough understanding of the drug's actions, uses and side effects. The [employer] does not endorse or recommend the use of any drug.The information is not a substitute for medical care. AHFS?? Patient Medication Information?. ?? Copyright, 2023. The [employer]??, [address], [address], [place], [place]. All Rights Reserved. Duplication for commercial use must be authorized by [facility]. Selected Revisions: February 13, 2017. AHFS?? Patient [...] Review Outcome: Ongoing, Progressing Flowsheets (Taken 06/17/2025 010) Progress: improving Outcome Evaluation: Plan of care [...] scheduled Intervention: Prevent Skin Injury Flowsheets Taken 06/17/2025 0109 Skin Protection: incontinence pads utilized transparent dressing maintained Taken 06/17/2025 0000 Body Position: weight shifting Intervention: Prevent and Manage VTE (Venous Thromboembolism) Risk Flowsheets (Taken 06/17/2025 0000) VTE Prevention/Management: medication Intervention: Prevent Infection Flowsheets (Taken 06/17/2025 0109) Infection Prevention: environmental surveillance performed equipment surfaces [...] wheel walker Positioning/Transfer Devices: pillows Taken 06/17/2025 0000 Activity Management: dorsiflexion/plantar flexion performed Problem: Self-Care Deficit Goal: Improved Ability to Complete Activities of Daily Living Outcome: Ongoing, Progressing Intervention: Promote Activity and Functional [place] Flowsheets (Taken 06/17/2025108) Activity Assistance Provided: assistance, 1 person Self-Care Promotion: independence encouraged Problem: Self-Care Deficit Goal: Improved Ability to Complete Activities of Daily Living Outcome: Ongoing, Progressing Intervention: Promote Activity and Functional [place] Flowsheets (Taken 06/17/2025108) Activity Assistance Provided: assistance, [...] Problem: Cardiovascular Surgery Goal: Improved Activity Tolerance 06/16/20251525 by Fariba Blanton RN Outcome: Ongoing, Progressing 06/16/2025 152 by Fariba Blanton RN Outcome: Ongoing, Not Progressing Goal: Optimal Coping with Heart Surgery 06/16/2025 152 by Fariba Blanton RN Outcome: Ongoing, Progressing 06/16/2025 152 by Fariba Blanton RN Outcome: Ongoing, Not Progressing Goal: Absence of Bleeding 06/16/20251525 by Fariba Blanton RN Outcome: Ongoing, Progressing 06/16/20251525 by Fariba Blanton RN Outcome: Ongoing, Not Progressing Goal: Effective Bowel Elimination 06/16/20251525 by Fariba Blanton RN Outcome: Ongoing, [...] Not Progressing Goal: Acceptable Pain Control 06/16/2025 152 by Fariba Blanton RN Outcome: [...] Absence of Fall and Fall-Related Injury 06/16/2025 1526 by Fariba Blanton, HESHAM Outcome: Ongoing, Progressing 06/16/2025 1526 by Fariba Blanton RN Outcome: Ongoing, Not Progressing Problem: Pain Acute Goal: Optimal Pain Control and Function 06/16/2025 152 by Fariba Blanton RN Outcome: Ongoing, Progressing 06/16/2025 152 by Fariba Blanton RN Outcome: Ongoing, Not Progressing Problem: Mobility Impairment Goal: Optimal Mobility 06/16/2025 1526 by aFriba Blanton RN Outcome: Ongoing, Progressing 06/16/2025 1526 by Fariba Blanton RN Outcome: Ongoing, Not Progressing Problem: Self-Care Deficit Goal: Improved Ability to Complete Activities of Daily Living 06/16/2025 1526 by Fariba Blanton RN Outcome: Ongoing, Progressing 06/16/2025 152 by Fariba Blanton RN Outcome: Ongoing, Not Progressing Problem: Wound Goal: Optimal Coping 06/16/2025 1526 by Fariba Blanton, HESHAM Outcome: [...] Blanton, HESHAM Outcome: Ongoing, Not Progressing Goal: Improved Oral [...] Not Progressing Goal: Optimal Wound Healing 06/16/2025 152 by Fariba Blanton RN Outcome: [...] Note Bradley Forrest 69 y.o. male CSN: [id number] Admission: 06/14/2025 5:18 AM Primary Problem: Severe [...] Problem(s): Weaning from mechanically assisted ventilation initiated ([facility]) (Fvsxglge38/20/2025) Arrived intubated and sedated post-op - fast [...] and plan as documented. 06/16/25 Bradley Forrest HPI Bradley Forrest is a [...] 06/14/25 Brachial 06/14/25 0808 Brachial 2 GCS: [place] Coma Scale Score: 15 Review of Systems [...] post median sternotomy. Interval removal of the Kilgore-Ganzcatheter, right IJ sheath remains in place with tip in the mid to distal SVC. No pneumothorax or pleural effusions. Ongoing interstitial edema. 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 Group Work Program Director (if applicable) OBJECTIVE & INTERVENTIONS PAIN Pain [...] ACTIVITY Treatment Minutes 24 TRANSFERS Level of [place] Physical/Non- physical Assist Adaptive Equipment Utilized Sit to Stand Contact guard Verbal Cues, Additional assist utilized for safety, 1 person + 1 person to manage equipment (verbal cuing for sternal precautions) Stand to sit Contact guard Verbal Cues, 1 person + 1 person to manage equipment Interventions BALANCE Postural Appearance Posture: Rounded shoulders Level of [place] Balance Support Interventions Static Sit Standby assist Feet supported Dynamic Sit Contact guard Feet supported Static Stand Standby assist Right upper extremity support, Left upper extremity support Pt with mild dizziness when coming to stand from sitting which subsided with roughly 30 seconds of static standing Dynamic Stand Standby assist Right upper extremity support, Left upper extremity support AMBULATION Level of [place] Distance Adaptive Equipment Utilized Ambulation Standby assist, [...] Plan Anticoagulation Plan Warfarin Pharmacist Managed?: No [facility] Warfarin Dosing Protocol Followed?: No Reason for Protocol Departure: CT Surgery Bridging Agent in Conjunction With Warfarin? : Yes Ordered Agents: Enoxaparin Bridging Agent Dose: Enoxaparin 70mg bid to start 06/16 pm INR Monitoring Frequency: Monitor INR daily Patient Education : Incomplete Warfarin dosing and adjustment per CT surgery provider. Transitions of Care Outpatient provider managing warfarin after [facility] discharge: TBD Recommended date for outpatient INR assessment: TBD Will continue to follow patient's clinical progress daily. Sy Fernández PharmD PGY-2 Cardiology Land Law Examiner Available via Secure Chat * Progress Notes [...] Precautions: precautions maintained Taken 06/14/20252154 by Svetlana Reilly, RN Fever Reduction/Comfort Measures: lightweight clothing lightweight [...] Intervention: Prevent or Manage Pain Flowsheets Taken 06/15/2025 1948 Pain Management Interventions: medication (see MAR) Taken [...] Optimize Mobility Flowsheets Taken 06/15/20251999 by Svetlana Reilly, RN Activity Management: activity encouraged Taken 06/15/20251699 by Bony Thomas RN Assistive Device Utilized: four wheel walker Taken 06/14/20252154 by Svetlana Reilly, RN Positioning/Transfer Devices: wedge pillows repositioning sheet Problem: Self-Care Deficit Goal: Improved Ability to Complete Activities of Daily Living Outcome: Ongoing, Progressing Intervention: Promote Activity and Functional [place] Flowsheets Taken 06/15/20251699 by Bony Thomas RN [...] Ongoing, Progressing Intervention: Promote Activity and Functional [place] Flowsheets Taken 06/15/2025 1700 by Bony Thomas RN Activity Assistance Provided: assistance, stand-by Taken 06/14/20252154 by Svetlana Reilly RN Self-Care Promotion: independence encouraged * Consults - Nat Singletary RD - 06/15/2025 2:23 PM EDTAssociated Order(s): IP CONSULT TO NUTRITION SERVICES Adult Nutrition Evaluation Note Bradley Forrest 69 y.o. male CSN: [id number] Room/Bed 234/234A Nutrition evaluation type: assessment Reason [...] Risk Score: 38 Most Recent BM Date: (FAMILY PRACTICE PHYSICIAN) GI Symptoms: Nausea, Vomiting Edema: Generalized Allergies: [...] 30.07 Weight Evaluation: Obese-Class 1 (BMI 30-34.9) [place] Body Weight (kg): 67.3 Percent [place] Body Weight: 130 Adjusted Body Weight (kg): 72.4 Estimated Needs: Kcal/ K-28 Kcal Provided: Metabolic Cart Study Results: Current Nutrition Intake: Diet Order: Adult Diet Diet Texture: Clear liquid Adult Carbohydrate Restriction: Consistent CHO 2 (9151-4285 Venkat, 80 g/meal) Fat Restriction: Cardiac Percent Meals Eaten (%): establishing Diet Experience and Nutrition History: Diet Education Provided: Will monitor Pertinent home medications: Episcopal needs: Nutrition Focused Physical Exam: Physical exam performed on (date): 06/15 [place] (muscles): None Clavicle (muscle): None Shoulder (muscle): None Orbital (fat): None Triceps (fat): None Energy Intake: reported adequate FAMILY PRACTICE PHYSICIAN Weight Loss: denies Assessment of Malnutrition: Malnutrition [...] 75% meals Acuity Level: 3 Nat Singletary, RD [1] acetaminophen, 650 mg, Oral, q4h [...] Note Bradley Forrest 69 y.o. male CSN: [id number] Admission: 06/14/2025 5:18 AM Primary Problem: Severe aortic regurgitation Meteorology Instructor reviewed chart and spoke with the patient at bedside to complete this Initial Case Management Assessment. PCP: Kamran Singh MD Emergency Contact: Extended Emergency Contact Information Primary Emergency Contact: Naheed Forrest Address: [address] [place] [address] of [place] Relation: Spouse Insurance: Primary Visit Coverage Payer Plan Sponsor Code Group Number Group Name MARY HERNANDEZ [facility] [id number] Primary Visit Coverage Subscriber Subscriber ID Subscriber Name Subscriber N Subscriber Address [id number] Bradley Forrest [id number] Secondary Visit Coverage Payer Plan Sponsor Code Group Number Group Name MEDICARE MEDICARE A & B Secondary Visit Coverage Subscriber Subscriber ID Subscriber Name Subscriber N Subscriber Address [id number] Bradley Forrset [id number] Patient information: Primary Caregiver: Self Support System: Immediate family Daily Living Activities: Functional Status: Independent Living Arrangements: Spouse/Significant other Type of Residence: Private residence, Single Level [address] Current DME: Equipment Currently Used at Home: [...] DME Provider: n/a Living Will/Advance Directive/Power of Cotton Dispatcher /Guardian: Unable to assess: No Have [...] prior HH/O2/HD/Abx. PCP is Kamran Singh. Has [employer] insurance and uses [facility]. Family to transport and assist as needed at discharge. No current SW/CM needs identified. Will continue to follow and assist. Sangeeta Townsend, RN * Progress Notes - Sy Fernández PharmD - 06/15/2025 1:37 PM EDT Antithrombosis [...] Plan Anticoagulation Plan Warfarin Pharmacist Managed?: No [facility] Warfarin Dosing Protocol Followed?: No Reason for Protocol Departure: CT Surgery Bridging Agent in Conjunction With Warfarin? : No INR Monitoring Frequency: Monitor INR daily Patient Education : Incomplete Warfarin dosing and adjustment per CT surgery provider. Transitions of Care Outpatient provider managing warfarin after [facility] discharge: TBD Recommended date for outpatient INR assessment: TBD Will continue to follow patient's clinical progress daily. Sy Fernández, FrankD PGY-2 Cardiology Land Law Examiner Available via Secure Chat * Assessment & [...] Weaning from mechanically assisted ventilation initiated (CMS/HCC) (Qnajmsma22/20/2025) Arrived intubated and sedated post-op - fast [...] Weaning from mechanically assisted ventilation initiated (CMS/HCC) (Nwwhzqfo91/20/2025) Arrived intubated and sedated post-op - fast [...] 06/15/2025 Weaning from mechanically assisted ventilation initiated ([facility]) 06/14/2025 Diabetes 05/05/2025 Benign prostatic hyperplasia 05/05/2025 CAD (coronary artery disease) 04/14/2025 History of coronary angioplasty with insertion of stent 04/14/2025 Ascending aortic aneurysm ([facility]) 04/14/2025 Aortic valve regurgitation 04/14/2025 [...] assist 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) Level of Mobility: Ambulatory- community Mobility [place]: Independent gait without device History of Falls: [...] Mobility Exam: Sit to Supine Level of [place]: Maximum assist (25% patient's effort) Physical/Nonphysical Assist: Verbal Cues, Maximal cues, Additional assist utilized for safety Transfers Transfer Exam: Sit to stand Level of [place]: Moderate assist (50% patient's effort) Physical/Nonphysical Assist: Verbal Cues, Moderate cues, Additional assist utilized for safety Assistive Device: Rollator Transfer Exam: Stand to Sit Level of [place]: Minimum assist (75% patient's effort) Physical/Nonphysical Assist: [...] activity. Standardized Assessments Standardized Assessments Standardized Assessments: [facility] 6-Clicks Mobility Assessment [facility] 6-Clicks Mobility Assessment Difficulty patient has [...] 3-5 steps with a railing?: A little [facility] 6-Clicks Mobility Assessment Total : 16 [...] 06/15/2025 Weaning from mechanically assisted ventilation initiated ([facility]) 06/14/2025 Diabetes 05/05/2025 Benign prostatic hyperplasia 05/05/2025 CAD (coronary artery disease) 04/14/2025 History of coronary angioplasty with insertion of stent 04/14/2025 Ascending aortic aneurysm ([facility]) 04/14/2025 Aortic valve regurgitation 04/14/2025 [...] assist 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) Level of Mobility: Ambulatory- community Mobility [place]: Independent gait without device History of Falls: [...] Mobility Exam: Sit to Supine Level of [place]: Maximum assist (25% patient's effort) Physical/Nonphysical Assist: Verbal Cues, Maximal cues, Additional assist utilized for safety Transfers Transfer Exam: Sit to stand Level of [place]: Moderate assist (50% patient's effort) Physical/Nonphysical Assist: Verbal Cues, Moderate cues, Additional assist utilized for safety Assistive Device: Rollator Transfer Exam: Stand to Sit Level of [place]: Minimum assist (75% patient's effort) Physical/Nonphysical Assist: [...] continued education to improve carryover. Standardized Assessments [facility] 6-Click Daily Activities Help from Other: Don/Doff Regular Lower Body Clothings: A lot Help From Other: Bathing: A lot Help From Other: Toileting: A lot Help From Other: Don/Doff Upper Body Clothings: Little Help From Other: Grooming: Little Help From Other: Eating Meals: None [facility] 6 Click - Daily Activities [...] 06/14/25 0832 Internal jugular 1 Peripheral IV 10/14/25 Posterior;Right Hand 06/14/25 0620 Hand 1 Chest [...] Intake/Output Summary (Last 24 hours) at 06/15/2025 09 Last data filed at 06/15/2025 0800 Gross [...] of NG tube. Right internal jugular approach Kilgore-Shira catheter and mediastinal drain in unchanged position. [...] protocol. -SBP<120 in initial post-op period -shar Rutledge DO * Progress Notes - Phillip Clrak MD - 06/15/2025 6:48 AM EDT Bradley [...] Problem(s): Weaning from mechanically assisted ventilation initiated ([facility]) (Tazxiblv89/20/2025) Arrived intubated and sedated post-op - fast [...] for analgesia prior to leaving the OR. [facility] services were consulted for management of [...] 1.4 and on Epi .03, pressure support 8/5 Edited by: Balta Washington, ACCOUNT ANALYST, DNP at 06/14/2025 2253 Lines/Drains/Tubes: Patient Lines/Drains/Airways [...] Ongoing, Progressing Intervention: Promote Activity and Functional [place] Flowsheets (Taken 06/14/20252154) Activity Assistance Provided: assistance, [...] protocol. * Assessment & Plan Note - Belel Smith MD - 06/14/2025 6:01 PM EDT Associated Problem(s): Weaning from mechanically assisted ventilation initiated (CMS/HCC) (Kejaefmx77/20/2025) Arrived intubated and sedated post-op - fast [...] for analgesia prior to leaving the OR. [facility] services were consulted for management of [...] 06/14/25 1327 Mediastinal less than 1 NG/OG [place] Sump Orogastric 18 Fr Center mouth 06/14/25 [...] Reviewed and otherwise non-contributory. Allergies: Allergies[6] GCS: [place] Coma Scale Score: 15 Review of Systems [...] Aortic valve regurgitation Benign prostatic hyperplasia Diabetes Viecnte Rutledge DO [1] Past Medical History: Diagnosis [...] 2 tablets by mouth every morning. Under [place] law, monthly prescriptions (30 days) can be refilled at 25 days and three-month prescriptions (90 days) at 80 days. Please contact the insurance company with questions if refills are denied. (Patient taking differently: Take 2 tablets by mouth every 4 hours as needed. Under [place] law, monthly prescriptions (30 days) can be [...] Saint Jose mechanical prosthesis. Date: 06/14/25 Location: [facility] Name: Bradley Forrest, : 1955, Diagnoses: Pre-op Diagnosis Severe aortic regurgitation Post-op Diagnosis Severe aortic regurgitation Coronary artery disease due to calcified coronary lesion History of coronary angioplasty with insertion of stent Left ventricular enlargement Procedure(s): Median sternotomy, aortic valve replacement using a 25 mm [place] mechanical prosthesis. Attending Surgeon(s): * Phillip Clark - Primary Retail Assistant Store Manager(s): * Turner Pablo MD - Fellow Anesthesia: General ASA: IV Blood Administration: Blood Product Administration History None Estimated Blood Loss: 150 mL Drains: Chest Tube Mediastinal 36 Fr (Active) Function -20 cm H2O 06/14/25 1600 Chest Tube Air Leak No 06/14/25 1600 Patency Intervention Tip/tilt 06/14/25 1600 Drainage Description Dark red 06/14/25 1600 NG/OG [place] Sump Orogastric 18 Fr Center mouth (Active) Urethral Catheter Temperature probe 16 Fr. (Active) Implants Type Name Action Serial No. GRAFT PTCH [id number] FELT - [id number] Implanted VALVE ATRIAL 25MM ROTATABL CUF STD PTFE - [id number] - [id number] Implanted [id number] Specimen: Specimens ID Source Frozen? 1 Heart [...] patient's left ventricle was quite large. Indications: Bradely Forrest is an 69 y.o. male who is having surgery for Severe aortic regurgitation.We had seen him for his dilated ascending aorta. He came back for another routine visit and had hadstenting of his coronaries. In addition his director of event marketing, Jd Duvall, had done an echocardiogram which [...] was induced, monitoring lines were placed, a Kilgore-Shira catheter was floated into position and a [...] Prolene and a tack seal. One 36 Iranian chest tube was placed. Chest tubes and pacing wires were secured to the anterior abdominal wall. The sternum was reapproximated with #7 [id number] stainless steel wires, the fasciawas closed with [...] 2 tablets by mouth every morning. Under [place] law, monthly prescriptions (30 days) can be refilled at 25 days and three-month prescriptions (90 days) at 80 days. Please contact the insurance company with questions if refills are denied. Patient taking differently: Take 2 tablets by mouth every 4 hours as needed. Under [place] law, monthly prescriptions (30 days) can be [...] PM EST Appointment [facility] [address] [place] [address] 07/20/2026 1:40 PM EST Office Visit [facility] [address], [address] [place] [address] Phillip Clark MD [address] [place] [address] Pending Results Name Type Priority Associated Diagnoses [...] 5:56 PM EDT PHOSPHORUS, PLASMA Routine 06/15/2025 4 :11 PM EDT MAGNESIUM, PLASMA Add-On 06/15/2025 4:1 [...] - 99 mg/dL 06/20/2025 2:47 AM EDT [facility] BUN, Plasma 22 8 - 23 mg/dL 06/20/2025 2:47 AM EDT [facility] Creatinine, Plasma 0.85 0.70 - 1.20 mg/dL 06/20/2025 2:47 AM EDT [facility] BUN/Creatinine Ratio 26 06/20/2025 2:47 AM EDT [facility] Sodium, Plasma 131(L) 136 - 145 mmol/L 06/20/2025 2:47 AM EDT [facility] Potassium, Plasma 4.0 3.6 - 4.9 mmol/L 06/20/2025 2:47 AM EDT [facility] Chloride, Plasma 102 97 - 107 mmol/L 06/20/2025 2:47 AM EDT [facility] CO2, Plasma 24 22 - 29 mmol/L 06/20/2025 2:47 AM EDT [facility] Anion Gap 5(L) 6 - 16 mmol/L 06/20/2025 2:47 AM EDT [facility] Total Calcium, Plasma 7.9(L) 8.9 - 10.2 mg/dL 06/20/2025 2:47 AM EDT [facility] eGFRcr 94.1 mL/min/1.7 3m*2 06/20/2025 2:47 AM EDT [facility] Comment:Reported eGFRcr in m L/min/1.73m2 is based the CKD-EPI 2020 equation that does not use a race coefficient. Blood Venous blood specimen / Unknown Venipuncture / Unknown 06/20/2025 1:52 AM EDT 06/20/2025 1:59 AM EDT Phillip Clark MD LAB BLOOD ORDERABLES Final R esult Performing Organization Address City/[facility]/ZIP Co de Phone Number [facility] [address] [place] [address] * Phosphorus (06/20/2025 1:52 AM EDT) Phosphorus, Plasma 2.8 2.5 - 4.5 mg/dL 06/20/2025 2:23 AM EDT [facility] Blood Venous blood specimen / Unknown Venipuncture / Unknown 06/20/2025 1:52 AM EDT 06/20/2025 1:59 AM EDT Phillip Clark MD LAB BLOOD ORDERABLES Final R esult [facility] [address] [place] [address] * (ABNORMAL) Protime-INR (06/20/2025 1:52 AM EDT) Prothrombin Time 30.4(H) 12.0 - 14.3 sec LAB COAGULATION METHOD 06/20/2025 2:29 AM EDT [facility] INR 2.9(H) 0.9 - 1.1 LAB COAGULATION METHOD 06/20/2025 2:29 AM EDT [facility] Blood Venous blood specimen / Unknown Venipuncture / Unknown 06/20/2025 1:52 AM EDT 06/20/2025 1:59 AM EDT Narrative [facility] - 06/20/2025 2:29 AM EDT [...] ORDERABLES Final R esult Performing Organization Address City/[facility] Co de Phone Number [facility] [address] [place] [address] * Magnesium (06/20/2025 1:52 AM EDT) Magnesium, Plasma 2.2 1.9 - 2.4 mg/dL 06/20/2025 2:23 AM EDT [facility] Blood Venous blood specimen / Unknown Venipuncture / Unknown 06/20/2025 1:52 AM EDT 06/20/2025 1:59 AM EDT Phillip Clark MD LAB BLOOD ORDERABLES Final R esult Performing Organization Address City/[facility] Co de Phone Number [facility] [address] [place] [address] * (ABNORMAL) CBC (06/20/2025 1:52 AM EDT) WBC Count 6.95 3.70 - 10.30 10*3/uL LAB HEMATOLOGY METHOD 06/20/2025 2:07 AM EDT [facility] RBC Count 3.73(L) 4.60 - 6.10 10*6/uL LAB HEMATOLOGY METHOD 06/20/2025 2:07 AM EDT [facility] HGB 10.4(L) 13.7 - 17.5 g/dL LAB HEMATOLOGY METHOD 06/20/2025 2:07 AM EDT [facility] HCT 31.9(L) 40.0 - 51.0 % LAB HEMATOLOGY METHOD 06/20/2025 2:07 AM EDT [facility] Platelet Count 187 155 - 369 10*3/uL LAB HEMATOLOGY METHOD 06/20/2025 2:07 AM EDT [facility] MCV 86 79 - 98 fL LAB HEMATOLOGY METHOD 06/20/2025 2:07 AM EDT [facility] MCH 27.9 26.0 - 32.0 pg LAB HEMATOLOGY METHOD 06/20/2025 2:07 AM EDT [facility] MCHC 32.6 30.7 - 35.5 g/dL LAB HEMATOLOGY METHOD 06/20/2025 2:07 AM EDT [facility] RDW 14.8(H) 11.5 - 14.5 % LAB HEMATOLOGY METHOD 06/20/2025 2:07 AM EDT [facility] MPV 10.2 8.8 - 12.5 fL LAB HEMATOLOGY METHOD 06/20/2025 2:07 AM EDT [facility] nRBC 0.0 <=0.0 per 100 WBCs LAB HEMATOLOGY METHOD 06/20/2025 2:07 AM EDT [facility] Blood Venous blood specimen / Unknown Venipuncture / Unknown 06/20/2025 1:52 AM EDT 06/20/2025 1:59 AM EDT us Pihllip Clark MD LAB BLOOD ORDERABLES Final R esult [facility] [address] [place] [address] * PERIPHERAL IV (SMARTFORM LINK) (06/20/2025 1:47 [...] QTC Interval 478 ms MUSE ECG P [place] 43 degrees MUSE ECG R [place] -30 degrees MUSE ECG T Wave [place] 36 degrees MUSE ECG Diagnosis Poor data quality, interpretation may be adversely affected MUSE ECG Diagnosis Sinus rhythm with premature supraventricular complexes and with occasional premature ventricular complexes MUSE ECG Diagnosis Left axis deviation MUSE ECG Diagnosis Poor R-wave progression MUSE ECG Diagnosis Abnormal ECG MUSE ECG Diagnosis Recommend repeat ECG MUSE ECG Diagnosis MUSE ECG Diagnosis Confirmed by Aman Coe ([id number]) on 06/19/2025 1:33:10 PM MUSE ECG 06/19/2025 12:4 9 PM EDT 06/19/2025 1:33 PM EDT Barbara MARIE ECG ORDERABLES Final Resul t MUSE ECG * (ABNORMAL) Basic metabolic panel (06/19/2025 2:38 AM EDT) Glucose, Plasma 102(H) 74 - 99 mg/dL 06/19/2025 4:10 AM EDT [facility] BUN, Plasma 25(H) 8 - 23 mg/dL 06/19/2025 4:10 AM EDT [facility] Creatinine, Plasma 1.02 0.70 - 1.20 mg/dL 06/19/2025 4:10 AM EDT [facility] BUN/Creatinine Ratio 25 06/19/2025 4:10 AM EDT [facility] Sodium, Plasma 134(L) 136 - 145 mmol/L 06/19/2025 4:10 AM EDT [facility] Potassium, Plasma 4.6 3.6 - 4.9 mmol/L 06/19/2025 4:10 AM EDT [facility] Comment:Hemolyzed - [place] m may be falsely elevated by approximately 0.4-0.7 mmol/L. Chloride, Plasma 102 97 - 107 mmol/L 06/19/2025 4:10 AM EDT [facility] CO2, Plasma 23 22 - 29 mmol/L 06/19/2025 4:10 AM EDT [facility] Anion Gap 9 6 - 16 mmol/L 06/19/2025 4:10 AM EDT [facility] Total Calcium, Plasma 8.4(L) 8.9 - 10.2 mg/dL 06/19/2025 4:10 AM EDT [facility] eGFRcr 79.6 mL/min/1.7 3m*2 06/19/2025 4:10 AM EDT [facility] Comment:Reported eGFRcr in m L/min/1.73m2 is based the CKD-EPI 2020 equation that does not use a race coefficient. Blood Venous blood specimen / Unknown Venipuncture / Unknown 06/19/2025 2:38 AM EDT 06/19/2025 2:54 AM EDT us Phillip Clark MD LAB BLOOD ORDERABLES Final R esult [facility] [address] [place] [address] * Phosphorus (06/19/2025 2:38 AM EDT) Pathologist [facility] Phosphorus, Plasma 3.6 2.5 - 4.5 mg/dL 06/19/2025 4:10 AM EDT [facility] Blood Venous blood specimen / Unknown Venipuncture / Unknown 06/19/2025 2:38 AM EDT 06/19/2025 2:54 AM EDT us Phillip Clark MD LAB BLOOD ORDERABLES Final R esult Performing Organization Address City/[facility]/ZIP Co de Phone Number [facility] [address] [place] [address] * (ABNORMAL) Protime-INR (06/19/2025 2:38 AM EDT) Prothrombin Time 26.3(H) 12.0 - 14.3 sec LAB COAGULATION METHOD 06/19/2025 3:09 AM EDT [facility] INR 2.4(H) 0.9 - 1.1 LAB COAGULATION METHOD 06/19/2025 3:09 AM EDT [facility] Blood Venous blood specimen / Unknown Venipuncture / Unknown 06/19/2025 2:38 AM EDT 06/19/2025 2:54 AM EDT Narrative [facility] - 06/19/2025 3:09 AM EDT [...] ORDERABLES Final R esult Performing Organization Address [facility] Co de Phone Number [facility] [address] [place] [address] * Magnesium (06/19/2025 2:38 AM EDT) Magnesium, Plasma 2.4 1.9 - 2.4 mg/dL 06/19/2025 4:10 AM EDT [facility] Blood Venous blood specimen / Unknown Venipuncture / Unknown 06/19/2025 2:38 AM EDT 06/19/2025 2:54 AM EDT Phillip Clark MD LAB BLOOD ORDERABLES Final R esult Performing Organization Address City/[facility]/ZIP Co de Phone Number [facility] [address] [place] [address] * (ABNORMAL) CBC (06/19/2025 2:38 AM EDT) WBC Count 6.94 3.70 - 10.30 10*3/uL LAB HEMATOLOGY METHOD 06/19/2025 3:17 AM EDT [facility] RBC Count 4.12(L) 4.60 - 6.10 10*6/uL LAB HEMATOLOGY METHOD 06/19/2025 3:17 AM EDT [facility] HGB 11.5(L) 13.7 - 17.5 g/dL LAB HEMATOLOGY METHOD 06/19/2025 3:17 AM EDT [facility] HCT 35.7(L) 40.0 - 51.0 % LAB HEMATOLOGY METHOD 06/19/2025 3:17 AM EDT [facility] Platelet Count 165 155 - 369 10*3/uL LAB HEMATOLOGY METHOD 06/19/2025 3:17 AM EDT [facility] MCV 87 79 - 98 fL LAB HEMATOLOGY METHOD 06/19/2025 3:17 AM EDT [facility] MCH 27.9 26.0 - 32.0 pg LAB HEMATOLOGY METHOD 06/19/2025 3:17 AM EDT [facility] MCHC 32.2 30.7 - 35.5 g/dL LAB HEMATOLOGY METHOD 06/19/2025 3:17 AM EDT [facility] RDW 14.8(H) 11.5 - 14.5 % LAB HEMATOLOGY METHOD 06/19/2025 3:17 AM EDT [facility] MPV 10.6 8.8 - 12.5 fL LAB HEMATOLOGY METHOD 06/19/2025 3:17 AM EDT [facility] nRBC 0.0 <=0.0 per 100 WBCs LAB HEMATOLOGY METHOD 06/19/2025 3:17 AM EDT [facility] Blood Venous blood specimen / Unknown Venipuncture / Unknown 06/19/2025 2:38 AM EDT 06/19/2025 2:54 AM EDT us Phillip Clark MD LAB BLOOD ORDERABLES Final R esult [facility] [address] [place] [address] * XR Chest 1 View (06/19/2025 1:50 [...] - 99 mg/dL 06/18/2025 2:17 AM EDT [facility] BUN, Plasma 18 8 - 23 mg/dL 06/18/2025 2:17 AM EDT [facility] Creatinine, Plasma 0.82 0.70 - 1.20 mg/dL 06/18/2025 2:17 AM EDT [facility] BUN/Creatinine Ratio 22 06/18/2025 2:17 AM EDT [facility] Sodium, Plasma 134(L) 136 - 145 mmol/L 06/18/2025 2:17 AM EDT [facility] Potassium, Plasma 3.7 3.6 - 4.9 mmol/L 06/18/2025 2:17 AM EDT [facility] Chloride, Plasma 100 97 - 107 mmol/L 06/18/2025 2:17 AM EDT [facility] CO2, Plasma 26 22 - 29 mmol/L 06/18/2025 2:17 AM EDT [facility] Anion Gap 8 6 - 16 mmol/L 06/18/2025 2:17 AM EDT [facility] Total Calcium, Plasma 8.1(L) 8.9 - 10.2 mg/dL 06/18/2025 2:17 AM EDT [facility] eGFRcr 95.1 mL/min/1.7 3m*2 06/18/2025 2:17 AM EDT [facility] Comment:Reported eGFRcr in m L/min/1.73m2 is based the CKD-EPI 2020 equation that does not use a race coefficient. Blood Blood sample taken from central line / Unknown Venipuncture / Unknown 06/18/2025 1:43 AM EDT 06/18/2025 1:48 AM EDT Phillip Clark MD LAB BLOOD ORDERABLES Final R esult Performing Organization Address City/[facility]/ZIP Co de Phone Number [facility] [address] [place] [address] * Phosphorus (06/18/2025 1:43 AM EDT) Phosphorus, Plasma 2.6 2.5 - 4.5 mg/dL 06/18/2025 2:17 AM EDT [facility] Blood Blood sample taken from central line / Unknown Venipuncture / Unknown 06/18/2025 1:43 AM EDT 06/18/2025 1:48 AM EDT Phillip Clark MD LAB BLOOD ORDERABLES Final R esult Performing Organization Address City/[facility]/ZIP Co de Phone Number [facility] [address] [place] [address] * (ABNORMAL) Protime-INR (06/18/2025 1:43 AM EDT) Prothrombin Time 25.2(H) 12.0 - 14.3 sec LAB COAGULATION METHOD 06/18/2025 2:07 AM EDT [facility] INR 2.3(H) 0.9 - 1.1 LAB COAGULATION METHOD 06/18/2025 2:07 AM EDT [facility] Blood Blood sample taken from central line / Unknown Venipuncture / Unknown 06/18/2025 1:43 AM EDT 06/18/2025 1:48 AM EDT Narrative [facility] - 06/18/2025 2:07 AM EDT [...] ORDERABLES Final R esult Performing Organization Address City/[facility]/ZIP Co de Phone Number [facility] [address] [place] [address] * Magnesium (06/18/2025 1:43 AM EDT) [facility] Magnesium, Plasma 2.3 1.9 - 2.4 mg/dL 06/18/2025 2:17 AM EDT [facility] Blood Blood sample taken from central line / Unknown Venipuncture / Unknown 06/18/2025 1:43 AM EDT 06/18/2025 1:48 AM EDT us Phillip Clark MD LAB BLOOD ORDERABLES Final R esult Performing Organization Address City/[facility]/ZIP Co de Phone Number [facility] [address] [place] [address] * (ABNORMAL) CBC (06/18/2025 1:43 AM EDT) [facility] WBC Count 8.51 3.70 - 10.30 10*3/uL LAB HEMATOLOGY METHOD 06/18/2025 1:54 AM EDT [facility] RBC Count 3.67(L) 4.60 - 6.10 10*6/uL LAB HEMATOLOGY METHOD 06/18/2025 1:54 AM EDT [facility] HGB 10.6(L) 13.7 - 17.5 g/dL LAB HEMATOLOGY METHOD 06/18/2025 1:54 AM EDT [facility] HCT 31.2(L) 40.0 - 51.0 % LAB HEMATOLOGY METHOD 06/18/2025 1:54 AM EDT [facility] Platelet Count 121(L) 155 - 369 10*3/uL LAB HEMATOLOGY METHOD 06/18/2025 1:54 AM EDT [facility] MCV 85 79 - 98 fL LAB HEMATOLOGY METHOD 06/18/2025 1:54 AM EDT [facility] MCH 28.9 26.0 - 32.0 pg LAB HEMATOLOGY METHOD 06/18/2025 1:54 AM EDT [facility] MCHC 34.0 30.7 - 35.5 g/dL LAB HEMATOLOGY METHOD 06/18/2025 1:54 AM EDT [facility] RDW 14.7(H) 11.5 - 14.5 % LAB HEMATOLOGY METHOD 06/18/2025 1:54 AM EDT [facility] MPV 10.4 8.8 - 12.5 fL LAB HEMATOLOGY METHOD 06/18/2025 1:54 AM EDT [facility] nRBC 0.0 <=0.0 per 100 WBCs LAB HEMATOLOGY METHOD 06/18/2025 1:54 AM EDT [facility] Blood Blood sample taken from central line / Unknown Venipuncture / Unknown 06/18/2025 1:43 AM EDT 06/18/2025 1:48 AM EDT us Phillip Clark MD LAB BLOOD ORDERABLES Final R esult [facility] [address] [place] [address] * XR Chest 1 View (06/17/2025 3:14 [...] - 99 mg/dL 06/17/2025 12:54 AM EDT [facility] BUN, Plasma 15 8 - 23 mg/dL 06/17/2025 12:54 AM EDT [facility] Creatinine, Plasma 0.81 0.70 - 1.20 mg/dL 06/17/2025 12:54 AM EDT [facility] BUN/Creatinine Ratio 19 06/17/2025 12:54 AM EDT [facility] Sodium, Plasma 133(L) 136 - 145 mmol/L 06/17/2025 12:54 AM EDT [facility] Potassium, Plasma 3.9 3.6 - 4.9 mmol/L 06/17/2025 12:54 AM EDT [facility] Chloride, Plasma 98 97 - 107 mmol/L 06/17/2025 12:54 AM EDT [facility] CO2, Plasma 25 22 - 29 mmol/L 06/17/2025 12:54 AM EDT [facility] Anion Gap 10 6 - 16 mmol/L 06/17/2025 12:54 AM EDT [facility] Total Calcium, Plasma 8.1(L) 8.9 - 10.2 mg/dL 06/17/2025 12:54 AM EDT [facility] eGFRcr 95.4 mL/min/1.7 3m*2 06/17/2025 12:54 AM EDT [facility] Comment:Reported eGFRcr in m L/min/1.73m2 is based the CKD-EPI 2020 equation that does not use a race coefficient. Blood Blood sample taken from central line / Unknown Venipuncture / Unknown 06/17/2025 12:17 AM EDT 06/17/2025 12:24 AM EDT us Phillip Clark MD LAB BLOOD ORDERABLES Final R esult Performing Organization Address City/[facility] Co de Phone Number [facility] [address] [place] [address] * Phosphorus (06/17/2025 12:17 AM EDT) Phosphorus, Plasma 2.9 2.5 - 4.5 mg/dL 06/17/2025 12:54 AM EDT [facility] Blood Blood sample taken from central line / Unknown Venipuncture / Unknown 06/17/2025 12:17 AM EDT 06/17/2025 12:24 AM EDT us Phillip Clark MD LAB BLOOD ORDERABLES Final R esult Performing Organization Address City/[facility]/ZIP Co de Phone Number [facility] [address] [place] [address] * (ABNORMAL) Protime-INR (06/17/2025 12:17 AM EDT) Prothrombin Time 18.7(H) 12.0 - 14.3 sec LAB COAGULATION METHOD 06/17/2025 1:16 AM EDT [facility] INR 1.5(H) 0.9 - 1.1 LAB COAGULATION METHOD 06/17/2025 1:16 AM EDT [facility] Blood Blood sample taken from central line / Unknown Venipuncture / Unknown 06/17/2025 12:17 AM EDT 06/17/2025 12:24 AM EDT Narrative [facility] - 06/17/2025 1:16 AM EDT [...] ORDERABLES Final R esult Performing Organization Address City/[facility]/ZIP Co de Phone Number [facility] [address] [place] [address] * Magnesium (06/17/2025 12:17 AM EDT) Magnesium, Plasma 2.3 1.9 - 2.4 mg/dL 06/17/2025 12:54 AM EDT [facility] Blood Blood sample taken from central line / Unknown Venipuncture / Unknown 06/17/2025 12:17 AM EDT 06/17/2025 12:24 AM EDT Phillip Clark MD LAB BLOOD ORDERABLES Final R esult [facility] [address] [place] [address] * (ABNORMAL) CBC (06/17/2025 12:17 AM EDT) WBC Count 10.83(H) 3.70 - 10.30 10*3/uL LAB HEMATOLOGY METHOD 06/17/2025 12:32 AM EDT [facility] RBC Count 4.08(L) 4.60 - 6.10 10*6/uL LAB HEMATOLOGY METHOD 06/17/2025 12:32 AM EDT [facility] HGB 11.3(L) 13.7 - 17.5 g/dL LAB HEMATOLOGY METHOD 06/17/2025 12:32 AM EDT [facility] HCT 35.0(L) 40.0 - 51.0 % LAB HEMATOLOGY METHOD 06/17/2025 12:32 AM EDT [facility] Platelet Count 116(L) 155 - 369 10*3/uL LAB HEMATOLOGY METHOD 06/17/2025 12:32 AM EDT [facility] MCV 86 79 - 98 fL LAB HEMATOLOGY METHOD 06/17/2025 12:32 AM EDT [facility] MCH 27.7 26.0 - 32.0 pg LAB HEMATOLOGY METHOD 06/17/2025 12:32 AM EDT [facility] MCHC 32.3 30.7 - 35.5 g/dL LAB HEMATOLOGY METHOD 06/17/2025 12:32 AM EDT [facility] RDW 15.1(H) 11.5 - 14.5 % LAB HEMATOLOGY METHOD 06/17/2025 12:32 AM EDT [facility] MPV 10.3 8.8 - 12.5 fL LAB HEMATOLOGY METHOD 06/17/2025 12:32 AM EDT [facility] nRBC 0.0 <=0.0 per 100 WBCs LAB HEMATOLOGY METHOD 06/17/2025 12:32 AM EDT [facility] Blood Blood sample taken from central line / Unknown Venipuncture / Unknown 06/17/2025 12:17 AM EDT 06/17/2025 12:24 AM EDT us Phillip Clark MD LAB BLOOD ORDERABLES Final R esult [facility] [address] [place] [address] * Magnesium (06/16/2025 5:35 PM EDT) Magnesium, Plasma 2.2 1.9 - 2.4 mg/dL 06/16/2025 7:41 PM EDT [facility] Blood Venous blood specimen / Unknown Venipuncture / Unknown 06/16/2025 5:35 PM EDT 06/16/2025 7:12 PM EDT us Phillip Clark MD LAB BLOOD ORDERABLES Final R esult [facility] [address] [place] [address] * (ABNORMAL) Renal function panel (06/16/2025 5:35 PM EDT) Glucose, Plasma 89 74 - 99 mg/dL 06/16/2025 7:41 PM EDT [facility] BUN, Plasma 15 8 - 23 mg/dL 06/16/2025 7:41 PM EDT [facility] Creatinine, Plasma 0.79 0.70 - 1.20 mg/dL 06/16/2025 7:41 PM EDT [facility] BUN/Creatinine Ratio 19 06/16/2025 7:41 PM EDT [facility] Sodium, Plasma 134(L) 136 - 145 mmol/L 06/16/2025 7:41 PM EDT [facility] Potassium, Plasma 3.8 3.6 - 4.9 mmol/L 06/16/2025 7:41 PM EDT [facility] Chloride, Plasma 98 97 - 107 mmol/L 06/16/2025 7:41 PM EDT [facility] CO2, Plasma 25 22 - 29 mmol/L 06/16/2025 7:41 PM EDT [facility] Anion Gap 11 6 - 16 mmol/L 06/16/2025 7:41 PM EDT [facility] Total Calcium, Plasma 8.4(L) 8.9 - 10.2 mg/dL 06/16/2025 7:41 PM EDT [facility] Phosphorus, Plasma 2.2(L) 2.5 - 4.5 mg/dL 06/16/2025 7:41 PM EDT [facility] Albumin, Plasma 3.4(L) 3.5 - 5.2 g/dL 06/16/2025 7:41 PM EDT [facility] eGFRcr 96.2 mL/min/1.7 3m*2 06/16/2025 7:41 PM EDT [facility] Comment:Reported eGFRcr in m L/min/1.73m2 is based the CKD-EPI 2020 equation that does not use a race coefficient. Blood Venous blood specimen / Unknown Venipuncture / Unknown 06/16/2025 5:35 PM EDT 06/16/2025 7:12 PM EDT us Phillip Clark MD LAB BLOOD ORDERABLES Final R esult [facility] [address] [place] [address] * [facility] CRITICAL CARE, E/M 30-74 MINUTES [...] - 99 mg/dL 06/16/2025 8:45 AM EDT [facility] Comment:Accuracy of a glucos e result [...] Comment 06/16/2025 8:45 AM EDT [facility] Credit Collections Rep ID Fariba Blanton 025 8:45 AM EDT [facility] Device ID [id number] 06/16/2025 8:45 AM EDT [facility] Specimen Type POC Arterial 06/16/2025 8:45 AM EDT [facility] Blood Arterial blood specimen / Unknown 06/16/2025 8:40 AM EDT 06/16/2025 8:45 AM EDT Phillip Clark MD LAB POINT OF CARE TE ST DOCKED DEVICE UNSOLICITED RESULTS Final Result Performing Organization Address City/State/[facility] Phone Number [facility] [address] [place] [address] * (ABNORMAL) Basic metabolic panel (06/16/2025 5:58 AM EDT) Glucose, Plasma 124(H) 74 - 99 mg/dL 06/16/2025 6:35 AM EDT [facility] BUN, Plasma 16 8 - 23 mg/dL 06/16/2025 6:35 AM EDT [facility] Creatinine, Plasma 0.83 0.70 - 1.20 mg/dL 06/16/2025 6:35 AM EDT [facility] BUN/Creatinine Ratio 19 06/16/2025 6:35 AM EDT [facility] Sodium, Plasma 132(L) 136 - 145 mmol/L 06/16/2025 6:35 AM EDT [facility] Potassium, Plasma 3.8 3.6 - 4.9 mmol/L 06/16/2025 6:35 AM EDT [facility] Chloride, Plasma 100 97 - 107 mmol/L 06/16/2025 6:35 AM EDT [facility] CO2, Plasma 25 22 - 29 mmol/L 06/16/2025 6:35 AM EDT [facility] Anion Gap 7 6 - 16 mmol/L 06/16/2025 6:35 AM EDT [facility] Total Calcium, Plasma 8.4(L) 8.9 - 10.2 mg/dL 06/16/2025 6:35 AM EDT [facility] eGFRcr 94.7 mL/min/1.7 3m*2 06/16/2025 6:35 AM EDT [facility] Comment:Reported eGFRcr in m L/min/1.73m2 is based the CKD-EPI 2020 equation that does not use a race coefficient. Blood Arterial blood specimen / Unknown Venipuncture / Unknown 06/16/2025 5:58 AM EDT 06/16/2025 6:05 AM EDT us Phillip Clark MD LAB BLOOD ORDERABLES Final R esult [facility] [address] [place] [address] * XR Chest 1 View (06/16/2025 5:14 AM EDT) Anatomical Region Laterality Modality Chest Digital Radiogra phy Impressions 06/16/2025 8:15 AM EDT Interval removal of the Kilgore-Shira catheter, the right IJ sheath remains in [...] post median sternotomy. Interval removal of the Kilgore-Shira catheter, right IJ sheath remains in place with tip in the mid to distal SVC. No pneumothorax or pleural effusions. Ongoing interstitial edema. Procedure Note Mona Smith MD - 06/16/2025 CLINICAL INDICATION: Post-Op Cardiac Surgery TECHNIQUE: XR CHEST 1 VIEW COMPARISON: Chest radiograph 06/15/2025 FINDINGS: Enlarged cardiac silhouette stable status post median sternotomy. Intervalremoval of the Kilgore-Shira catheter, right IJ sheath remains in place withtip in the mid to distal SVC. No pneumothorax or pleural effusions. Ongoing interstitial edema. IMPRESSION: Interval removal of the Kilgore-Shira catheter, the right IJ sheath remainsin place [...] lt * Phosphorus (06/16/2025 12:36 AM EDT) Pathologist [facility] [place] Phosphorus, Plasma 3.0 2.5 - 4.5 mg/dL 06/16/2025 1:12 AM EDT [facility] Blood Arterial blood specimen / Unknown Venipuncture / Unknown 06/16/2025 12:36 AM EDT 06/16/2025 12:48 AM EDT Phillip Clark MD LAB BLOOD ORDERABLES Final R esult [facility] [address] [place] [address] * (ABNORMAL) Protime-INR (06/16/2025 12:36 AM EDT) Prothrombin Time 18.0(H) 12.0 - 14.3 sec LAB COAGULATION METHOD 06/16/2025 1:06 AM EDT [facility] INR 1.5(H) 0.9 - 1.1 LAB COAGULATION METHOD 06/16/2025 1:06 AM EDT [facility] Blood Arterial blood specimen / Unknown Venipuncture / Unknown 06/16/2025 12:36 AM EDT 06/16/2025 12:48 AM EDT Narrative [facility] - 06/16/2025 1:06 AM EDT [...] ORDERABLES Final R esult Performing Organization Address [facility] Co de Phone Number [facility] [address] [place] [address] * (ABNORMAL) Magnesium (06/16/2025 12:36 AM EDT) Magnesium, Plasma 2.5(H) 1.9 - 2.4 mg/dL 06/16/2025 1:12 AM EDT [facility] Blood Arterial blood specimen / Unknown Venipuncture / Unknown 06/16/2025 12:36 AM EDT 06/16/2025 12:48 AM EDT Phillip Clark MD LAB BLOOD ORDERABLES Final R esult Performing Organization Address [facility] Co de Phone Number [facility] [address] [place] [address] * (ABNORMAL) CBC (06/16/2025 12:36 AM EDT) WBC Count 13.67(H) 3.70 - 10.30 10*3/uL LAB HEMATOLOGY METHOD 06/16/2025 1:01 AM EDT [facility] RBC Count 4.36(L) 4.60 - 6.10 10*6/uL LAB HEMATOLOGY METHOD 06/16/2025 1:01 AM EDT [facility] HGB 12.3(L) 13.7 - 17.5 g/dL LAB HEMATOLOGY METHOD 06/16/2025 1:01 AM EDT [facility] HCT 37.1(L) 40.0 - 51.0 % LAB HEMATOLOGY METHOD 06/16/2025 1:01 AM EDT [facility] Platelet Count 106(L) 155 - 369 10*3/uL LAB HEMATOLOGY METHOD 06/16/2025 1:01 AM EDT [facility] MCV 85 79 - 98 fL LAB HEMATOLOGY METHOD 06/16/2025 1:01 AM EDT [facility] MCH 28.2 26.0 - 32.0 pg LAB HEMATOLOGY METHOD 06/16/2025 1:01 AM EDT [facility] MCHC 33.2 30.7 - 35.5 g/dL LAB HEMATOLOGY METHOD 06/16/2025 1:01 AM EDT [facility] RDW 15.4(H) 11.5 - 14.5 % LAB HEMATOLOGY METHOD 06/16/2025 1:01 AM EDT [facility] MPV 10.8 8.8 - 12.5 fL LAB HEMATOLOGY METHOD 06/16/2025 1:01 AM EDT [facility] nRBC 0.0 <=0.0 per 100 WBCs LAB HEMATOLOGY METHOD 06/16/2025 1:01 AM EDT [facility] Blood Arterial blood specimen / Unknown Venipuncture / Unknown 06/16/2025 12:36 AM EDT 06/16/2025 12:48 AM EDT us Phillip Clark MD LAB BLOOD ORDERABLES Final R esult [facility] [address] [place] [address] * (ABNORMAL) Blood gas, arterial (06/16/2025 12:36 AM EDT) pH, Arterial 7.43(H) 7.31 - 7.42 LAB HEMATOLOGY METHOD 06/16/2025 12:58 AM EDT [facility] pCO2, Arterial 41 32 - 45 mmHg LAB HEMATOLOGY METHOD 06/16/2025 12:58 AM EDT [facility] pO2, Arterial 65(L) >80 mmHg LAB HEMATOLOGY METHOD 06/16/2025 12:58 AM EDT [facility] SO2, Measured, Arterial 94 94 - 98 % LAB HEMATOLOGY METHOD 06/16/2025 12:58 AM EDT [facility] Base Excess, Arterial 2.5 -2.0 - 3.0 mmol/L LAB HEMATOLOGY METHOD 06/16/2025 12:58 AM EDT [facility] Bicarbonate, Calculated, Arterial 27(H) 22 - 26 mmol/L LAB HEMATOLOGY METHOD 06/16/2025 12:58 AM EDT [facility] Hematocrit, Whole Blood 37.9(L) 40.0 - 51.0 % LAB HEMATOLOGY METHOD 06/16/2025 12:58 AM EDT [facility] Sodium, Whole Blood 133(L) 136 - 145 mmol/L LAB HEMATOLOGY METHOD 06/16/2025 12:58 AM EDT [facility] Potassium, Whole Blood 3.4(L) 3.6 - 4.9 mmol/L LAB HEMATOLOGY METHOD 06/16/2025 12:58 AM EDT [facility] Chloride, Whole Blood 100 97 - 107 mmol/L LAB HEMATOLOGY METHOD 06/16/2025 12:58 AM EDT [facility] Glucose, Whole Blood 124(H) 74 - 99 mg/dL LAB HEMATOLOGY METHOD 06/16/2025 12:58 AM EDT [facility] Ionized Calcium, Whole Blood 4.3(L) 4.6 - 5.1 mg/dL LAB HEMATOLOGY METHOD 06/16/2025 12:58 AM EDT [facility] Lactate, Arterial, Whole Blood 1.0 0.5 - 1.6 mmol/L LAB HEMATOLOGY METHOD 06/16/2025 12:58 AM EDT [facility] Blood Arterial blood specimen / Unknown Arterial Puncture / Unknown 06/16/2025 12:36 AM EDT 06/16/2025 12:55 AM EDT us Phillip Clark MD LAB BLOOD ORDERABLES Final R esult Performing Organization Address City/State/[facility] Co de Phone Number [facility] [address] [place] [address] * (ABNORMAL) POCT glucose meter (06/15/2025 8:00 PM EDT) POCT Glucose 120(H) 74 - 99 mg/dL 06/15/2025 8:01 PM EDT [facility] Comment:Accuracy of a glucos e result [...] 06/15/2025 8:01 PM EDT [facility] Credit Collections Rep ID Svetlana Reilly 8:01 PM EDT [facility] Device ID [id number] 06/15/2025 8:01 PM EDT [facility] Specimen Type POC Capillary 06/15/2025 8:01 PM EDT [facility] Blood Capillary blood specimen / Unknown 06/15/2025 8:00 PM EDT 06/15/2025 8:01 PM EDT us Phillip Clark MD LAB POINT OF CARE TE ST DOCKED DEVICE UNSOLICITED RESULTS Final Result Performing Organization Address City/[facility] de Phone Number [facility] [address] [place] [address] * (ABNORMAL) POCT glucose meter (06/15/2025 5:56 PM EDT) [facility] Signature POCT Glucose 121(H) 74 - 99 mg/dL [...] Comment 06/15/2025 5:57 PM EDT [facility] Credit Collections Rep ID Bony Thomas 025 5:57 PM EDT [facility] Device ID [id number] 06/15/2025 5:57 PM EDT [facility] Specimen Type POC Arterial 06/15/2025 5:57 PM EDT [facility] Blood Arterial blood specimen / Unknown 06/15/2025 5:56 PM EDT 06/15/2025 5:57 PM EDT us Phillip Clark MD LAB POINT OF CARE TE ST DOCKED DEVICE UNSOLICITED RESULTS Final Result Performing Organization Address City/[facility] Co de Phone Number [facility] [address] [place] [address] * Magnesium (06/15/2025 4:11 PM EDT) Pathologist [facility] [place] Magnesium, Plasma 2.1 1.9 - 2.4 mg/dL 06/15/2025 6:21 PM EDT [facility] Blood Venous blood specimen / Unknown Venipuncture / Unknown 06/15/2025 4:11 PM EDT 06/15/2025 4:39 PM EDT hPillip Clark MD LAB BLOOD ORDERABLES Final R esult [facility] [address] [place] [address] * Phosphorus (06/15/2025 4:11 PM EDT) [facility] Phosphorus, Plasma 2.9 2.5 - 4.5 mg/dL 06/15/2025 5:12 PM EDT [facility] Blood Venous blood specimen / Unknown Venipuncture / Unknown 06/15/2025 4:11 PM EDT 06/15/2025 4:39 PM EDT Phillip Clark MD LAB BLOOD ORDERABLES Final R esult [facility] [address] [place] [address] * (ABNORMAL) Basic metabolic panel (06/15/2025 4:11 PM EDT) [facility] Glucose, Plasma 123(H) 74 - 99 mg/dL 06/15/2025 5:12 PM EDT [facility] BUN, Plasma 19 8 - 23 mg/dL 06/15/2025 5:12 PM EDT [facility] Creatinine, Plasma 0.88 0.70 - 1.20 mg/dL 06/15/2025 5:12 PM EDT [facility] BUN/Creatinine Ratio 22 06/15/2025 5:12 PM EDT [facility] Sodium, Plasma 133(L) 136 - 145 mmol/L 06/15/2025 5:12 PM EDT [facility] Potassium, Plasma 3.9 3.6 - 4.9 mmol/L 06/15/2025 5:12 PM EDT [facility] Chloride, Plasma 102 97 - 107 mmol/L 06/15/2025 5:12 PM EDT [facility] CO2, Plasma 23 22 - 29 mmol/L 06/15/2025 5:12 PM EDT [facility] Anion Gap 8 6 - 16 mmol/L 06/15/2025 5:12 PM EDT [facility] Total Calcium, Plasma 8.6(L) 8.9 - 10.2 mg/dL 06/15/2025 5:12 PM EDT [facility] eGFRcr 93.1 mL/min/1.7 3m*2 06/15/2025 5:12 PM EDT [facility] Comment:Reported eGFRcr in m L/min/1.73m2 is based the CKD-EPI 2020 equation that does not use a race coefficient. Blood Venous blood specimen / Unknown Venipuncture / Unknown 06/15/2025 4:11 PM EDT 06/15/2025 4:39 PM EDT us Phillip Clark MD LAB BLOOD ORDERABLES Final R esult [facility] [address] [place] [address] * (ABNORMAL) POCT glucose meter (06/15/2025 12:14 [...] for testing. Comment 06/15/2025 12:16 PM EDT [facility] Credit Collections Rep ID Bony Thomas 025 12:16 PM EDT [facility] Device ID [id number] 06/15/2025 12:16 PM EDT [facility] Specimen Type POC Arterial 06/15/2025 12:16 PM EDT [facility] Blood Arterial blood specimen / Unknown 06/15/2025 12:14 PM EDT 06/15/2025 12:16 PM EDT us Phillip Clark MD LAB POINT OF CARE TE ST DOCKED DEVICE UNSOLICITED RESULTS Final Result Performing Organization Address City/State/[facility] de Phone Number [facility] [address] [place] [id number] * [place] [facility], E/M 30-74 MINUTES [...] - 99 mg/dL 06/15/2025 8:25 AM EDT [facility] Comment:Accuracy of [...] Comment 06/15/2025 8:25 AM EDT [facility]ARE [facility] Credit Collections Rep ID Bony Thomas 025 8:25 AM EDT [facility] Device ID [id number] 06/15/2025 8:25 AM EDT [facility] Specimen Type POC Arterial 06/15/2025 8:25 AM EDT [facility] Blood Arterial blood specimen / Unknown 06/15/2025 8:24 AM EDT 06/15/2025 8:25 AM EDT us Phillip Clark MD LAB POINT OF CARE TE ST DOCKED DEVICE UNSOLICITED RESULTS Final Result [facility] [address] [place] [address] * (ABNORMAL) CBC and Differential (06/15/2025 8:18 AM EDT) WBC Count 12.56(H) 3.70 - 10.30 10*3/uL LAB HEMATOLOGY METHOD 06/15/2025 8:47 AM EDT [facility] RBC Count 4.60 4.60 - 6.10 10*6/uL LAB HEMATOLOGY METHOD 06/15/2025 8:47 AM EDT [facility] HGB 12.8(L) 13.7 - 17.5 g/dL LAB HEMATOLOGY METHOD 06/15/2025 8:47 AM EDT [facility] HCT 39.4(L) 40.0 - 51.0 % LAB HEMATOLOGY METHOD 06/15/2025 8:47 AM EDT [facility] Platelet Count 120(L) 155 - 369 10*3/uL LAB HEMATOLOGY METHOD 06/15/2025 8:47 AM EDT [facility] MCV 86 79 - 98 fL LAB HEMATOLOGY METHOD 06/15/2025 8:47 AM EDT [facility] MCH 27.8 26.0 - 32.0 pg LAB HEMATOLOGY METHOD 06/15/2025 8:47 AM EDT [facility] MCHC 32.5 30.7 - 35.5 g/dL LAB HEMATOLOGY METHOD 06/15/2025 8:47 AM EDT [facility] RDW 15.5(H) 11.5 - 14.5 % LAB HEMATOLOGY METHOD 06/15/2025 8:47 AM EDT [facility] MPV 10.6 8.8 - 12.5 fL LAB HEMATOLOGY METHOD 06/15/2025 8:47 AM EDT [facility] nRBC 0.0 <=0.0 per 100 WBCs LAB HEMATOLOGY METHOD 06/15/2025 8:47 AM EDT [facility] Differential Type Automated LAB HEMATOLOGY METHOD 06/15/2025 8:47 AM EDT [facility] Neutrophils % 84 % LAB HEMATOLOGY METHOD 06/15/2025 8:47 AM EDT [facility] Lymphocytes % 5 % LAB HEMATOLOGY METHOD 06/15/2025 8:47 AM EDT [facility] Monocytes % 10 % LAB HEMATOLOGY METHOD 06/15/2025 8:47 AM EDT [facility] Eosinophils % 0 % LAB HEMATOLOGY METHOD 06/15/2025 8:47 AM EDT [facility] Basophils % 0 % LAB HEMATOLOGY METHOD 06/15/2025 8:47 AM EDT [facility] Immature Granulocytes % 1 % LAB HEMATOLOGY METHOD 06/15/2025 8:47 AM EDT [facility] Neutrophils Absolute 10.59(H) 1.60 - 6.10 10*3/uL LAB HEMATOLOGY METHOD 06/15/2025 8:47 AM EDT [facility] Lymphocytes Absolute 0.60(L) 1.20 - 3.90 10*3/uL LAB HEMATOLOGY METHOD 06/15/2025 8:47 AM EDT [facility] Monocytes Absolute 1.29(H) 0.30 - 0.90 10*3/uL LAB HEMATOLOGY METHOD 06/15/2025 8:47 AM EDT [facility] Eosinophils Absolute 0.00 0.00 - 0.50 10*3/uL LAB HEMATOLOGY METHOD 06/15/2025 8:47 AM EDT [facility] Basophils Absolute 0.02 0.00 - 0.10 10*3/uL LAB HEMATOLOGY METHOD 06/15/2025 8:47 AM EDT [facility] Immature Granulocytes Absolute 0.06 0.00 - 0.06 10*3/uL LAB HEMATOLOGY METHOD 06/15/2025 8:47 AM EDT [facility] Blood Venous blood specimen / Unknown Venipuncture / Unknown 06/15/2025 8:18 AM EDT 06/15/2025 8:34 AM EDT Narrative [facility] - 06/15/2025 8:47 AM EDT Therapeutic decision making should be based on absolute values, rather than percentages. Phillip Clark MD LAB BLOOD ORDERABLES Final R esult Performing Organization Address City/[facility]/ZIP Co de Phone Number [facility] [address] [place] [address] * (ABNORMAL) Protime-INR (06/15/2025 6:40 AM EDT) Prothrombin Time 16.5(H) 12.0 - 14.3 sec LAB COAGULATION METHOD 06/15/2025 7:53 AM EDT [facility] INR 1.3(H) 0.9 - 1.1 LAB COAGULATION METHOD 06/15/2025 7:53 AM EDT [facility] Blood Arterial blood specimen / Unknown Venipuncture / Unknown 06/15/2025 6:40 AM EDT 06/15/2025 6:47 AM EDT Narrative [facility] - 06/15/2025 7:53 AM EDT [...] ORDERABLES Final R esult Performing Organization Address City/[facility]/ZIP Co de Phone Number [facility] [address] [place] [address] * Ionized calcium, whole blood (06/15/2025 6:40 AM EDT) Ionized Calcium, Whole Blood 4.6 4.6 - 5.1 mg/dL LAB HEMATOLOGY METHOD 06/15/2025 6:50 AM EDT [facility] Blood Arterial blood specimen / Unknown Venipuncture / Unknown 06/15/2025 6:40 AM EDT 06/15/2025 6:48 AM EDT us Phillip Clark MD LAB BLOOD ORDERABLES Final R esult [facility] [address] [place] [address] * ECG Adult - POD 1 (06/15/2025 5:20 AM EDT) EKG DIAGNOSIS CLASS Abnormal MUSE ECG Ventricular Rate 71 BPM MUSE ECG Atrial Rate 71 BPM MUSE ECG RI Interval 182 ms MUSE ECG QRSD Interval 108 ms MUSE ECG QT Interval 418 ms MUSE ECG QTC Interval 454 ms MUSE ECG P [place] 51 degrees MUSE ECG R [place] -48 degrees MUSE ECG T Wave [place] -12 degrees MUSE ECG Diagnosis Normal sinus rhythm MUSE ECG Diagnosis Left anterior fascicular block MUSE ECG Diagnosis Abnormal ECG MUSE ECG Diagnosis MUSE ECG Diagnosis Confirmed by Bimal Brambila ([id number]) on 06/15/2025 11:38:57 AM MUSE ECG 06/15/2025 5:20 AM EDT 06/15/2025 11:38 AM EDT Phillip Clark MD ECG ORDERABLES Final Result MUSE ECG * (ABNORMAL) Blood gas panel, arterial (06/15/2025 3:58 AM EDT) pH, Arterial 7.39 7.31 - 7.42 LAB HEMATOLOGY METHOD 06/15/2025 4:06 AM EDT [facility] pCO2, Arterial 39 32 - 45 mmHg LAB HEMATOLOGY METHOD 06/15/2025 4:06 AM EDT [facility] pO2, Arterial 79(L) >80 mmHg LAB HEMATOLOGY METHOD 06/15/2025 4:06 AM EDT [facility] SO2, Measured, Arterial 97 94 - 98 % LAB HEMATOLOGY METHOD 06/15/2025 4:06 AM EDT [facility] Base Excess, Arterial -1.2 -2.0 - 3.0 mmol/L LAB HEMATOLOGY METHOD 06/15/2025 4:06 AM EDT [facility] Bicarbonate, Calculated, Arterial 24 22 - 26 mmol/L LAB HEMATOLOGY METHOD 06/15/2025 4:06 AM EDT [facility] Hematocrit, Whole Blood 39.7(L) 40.0 - 51.0 % LAB HEMATOLOGY METHOD 06/15/2025 4:06 AM EDT [facility] Sodium, Whole Blood 134(L) 136 - 145 mmol/L LAB HEMATOLOGY METHOD 06/15/2025 4:06 AM EDT [facility] Potassium, Whole Blood 4.4 3.6 - 4.9 mmol/L LAB HEMATOLOGY METHOD 06/15/2025 4:06 AM EDT [facility] Chloride, Whole Blood 108(H) 97 - 107 mmol/L LAB HEMATOLOGY METHOD 06/15/2025 4:06 AM EDT [facility] Glucose, Whole Blood 132(H) 74 - 99 mg/dL LAB HEMATOLOGY METHOD 06/15/2025 4:06 AM EDT [facility] Ionized Calcium, Whole Blood 4.5(L) 4.6 - 5.1 mg/dL LAB HEMATOLOGY METHOD 06/15/2025 4:06 AM EDT [facility] Lactate, Arterial, Whole Blood 0.9 0.5 - 1.6 mmol/L LAB HEMATOLOGY METHOD 06/15/2025 4:06 AM EDT [facility] Blood Arterial blood specimen / Unknown Arterial Puncture / Unknown 06/15/2025 3:58 AM EDT 06/15/2025 4:06 AM EDT us Phillip Clark MD LAB BLOOD ORDERABLES Final R esult [facility] [address] [place] [address] * XR Chest 1 View (06/15/2025 2:53 [...] of NG tube. Right internal jugular approach Kilgore-Shira catheter and mediastinal drain in unchanged position. [...] LAB HEMATOLOGY METHOD 06/15/2025 8:17 AM EDT [facility] Neutrophils % 85 % LAB HEMATOLOGY METHOD 06/15/2025 8:17 AM EDT [facility] Lymphocytes % 4 % LAB HEMATOLOGY METHOD 06/15/2025 8:17 AM EDT [facility] Monocytes % 10 % LAB HEMATOLOGY METHOD 06/15/2025 8:17 AM EDT [facility] Eosinophils % 0 % LAB HEMATOLOGY METHOD 06/15/2025 8:17 AM EDT [facility] Basophils % 0 % LAB HEMATOLOGY METHOD 06/15/2025 8:17 AM EDT [facility] Immature Granulocytes % 1 % LAB HEMATOLOGY METHOD 06/15/2025 8:17 AM EDT [facility] Immature Granulocytes Absolute 0.05 0.00 - 0.06 10*3/uL LAB HEMATOLOGY METHOD 06/15/2025 8:17 AM EDT [facility] Neutrophils Absolute 9.28(H) 1.60 - 6.10 10*3/uL LAB HEMATOLOGY METHOD 06/15/2025 8:17 AM EDT [facility] Lymphocytes Absolute 0.45(L) 1.20 - 3.90 10*3/uL LAB HEMATOLOGY METHOD 06/15/2025 8:17 AM EDT [facility] Monocytes Absolute 1.14(H) 0.30 - 0.90 10*3/uL LAB HEMATOLOGY METHOD 06/15/2025 8:17 AM EDT [facility] Basophils Absolute 0.02 0.00 - 0.10 10*3/uL LAB HEMATOLOGY METHOD 06/15/2025 8:17 AM EDT [facility] Eosinophils Absolute 0.00 0.00 - 0.50 10*3/uL LAB HEMATOLOGY METHOD 06/15/2025 8:17 AM EDT [facility] Blood Venous blood specimen / Unknown Venipuncture / Unknown 06/15/2025 12:20 AM EDT 06/15/2025 12:26 AM EDT Phillip Clark MD LAB BLOOD ORDERABLES Final R esult [facility] [address] [place] [address] * Phosphorus (06/15/2025 12:20 AM EDT) Phosphorus, Plasma 2.6 2.5 - 4.5 mg/dL 06/15/2025 8:33 AM EDT [facility] Blood Venous blood specimen / Unknown Venipuncture / Unknown 06/15/2025 12:20 AM EDT 06/15/2025 12:26 AM EDT Phillip Clark MD LAB BLOOD ORDERABLES Final R esult Performing Organization Address City/[facility]/ZIP Co de Phone Number [facility] [address] [place] [address] * (ABNORMAL) Magnesium (06/15/2025 12:20 AM EDT) Magnesium, Plasma 2.5(H) 1.9 - 2.4 mg/dL 06/15/2025 7:37 AM EDT [facility] Blood Venous blood specimen / Unknown Venipuncture / Unknown 06/15/2025 12:20 AM EDT 06/15/2025 12:26 AM EDT Phillip Clark MD LAB BLOOD ORDERABLES Final R esult Performing Organization Address City/[facility]/ZIP Co de Phone Number [facility] [address] [place] [address] * (ABNORMAL) Basic metabolic panel (06/15/2025 12:20 AM EDT) Glucose, Plasma 140(H) 74 - 99 mg/dL 06/15/2025 7:37 AM EDT [facility] BUN, Plasma 17 8 - 23 mg/dL 06/15/2025 7:37 AM EDT [facility] Creatinine, Plasma 0.84 0.70 - 1.20 mg/dL 06/15/2025 7:37 AM EDT [facility] BUN/Creatinine Ratio 20 06/15/2025 7:37 AM EDT [facility] Sodium, Plasma 138 136 - 145 mmol/L 06/15/2025 7:37 AM EDT [facility] Potassium, Plasma 4.6 3.6 - 4.9 mmol/L 06/15/2025 7:37 AM EDT [facility] Chloride, Plasma 107 97 - 107 mmol/L 06/15/2025 7:37 AM EDT [facility] CO2, Plasma 18(L) 22 - 29 mmol/L 06/15/2025 7:37 AM EDT [facility] Anion Gap 13 6 - 16 mmol/L 06/15/2025 7:37 AM EDT [facility] Total Calcium, Plasma 8.0(L) 8.9 - 10.2 mg/dL 06/15/2025 7:37 AM EDT [facility] eGFRcr 94.4 mL/min/1.7 3m*2 06/15/2025 7:37 AM EDT [facility] Comment:Reported eGFRcr in m L/min/1.73m2 is based the CKD-EPI 2020 equation that does not use a race coefficient. Blood Venous blood specimen / Unknown Venipuncture / Unknown 06/15/2025 12:20 AM EDT 06/15/2025 12:26 AM EDT us Phillip Clark MD LAB BLOOD ORDERABLES Final R esult [facility] [address] [place] [address] * (ABNORMAL) CBC W/O Differential (06/15/2025 12:20 AM EDT) WBC Count 10.94(H) 3.70 - 10.30 10*3/uL LAB HEMATOLOGY METHOD 06/15/2025 8:32 AM EDT [facility] RBC Count 4.94 4.60 - 6.10 10*6/uL LAB HEMATOLOGY METHOD 06/15/2025 8:32 AM EDT [facility] HGB 13.6(L) 13.7 - 17.5 g/dL LAB HEMATOLOGY METHOD 06/15/2025 8:32 AM EDT [facility] HCT 41.0 40.0 - 51.0 % LAB HEMATOLOGY METHOD 06/15/2025 8:32 AM EDT [facility] Platelet Count 142(L) 155 - 369 10*3/uL LAB HEMATOLOGY METHOD 06/15/2025 8:32 AM EDT [facility] MCV 87 79 - 98 fL LAB HEMATOLOGY METHOD 06/15/2025 8:32 AM EDT [facility] MCH 27.5 26.0 - 32.0 pg LAB HEMATOLOGY METHOD 06/15/2025 8:32 AM EDT [facility] MCHC 31.8 30.7 - 35.5 g/dL LAB HEMATOLOGY METHOD 06/15/2025 8:32 AM EDT [facility] RDW 15.6(H) 11.5 - 14.5 % LAB HEMATOLOGY METHOD 06/15/2025 8:32 AM EDT [facility] MPV 11.1 8.8 - 12.5 fL LAB HEMATOLOGY METHOD 06/15/2025 8:32 AM EDT [facility] nRBC 0.0 <=0.0 per 100 WBCs LAB HEMATOLOGY METHOD 06/15/2025 8:32 AM EDT [facility] Blood Venous blood specimen / Unknown Venipuncture / Unknown 06/15/2025 12:20 AM EDT 06/15/2025 12:26 AM EDT us Phillip Clark MD LAB BLOOD ORDERABLES Final R esult [facility] [address] [place], [place] [id number] * Potassium, Plasma (06/15/2025 12:20 AM EDT) Pathologist [facility] [place] Potassium, Plasma 4.5 3.6 - 4.9 mmol/L 06/15/2025 12:51 AM EDT [facility] Blood Venous blood specimen / Unknown Venipuncture / Unknown 06/15/2025 12:20 AM EDT 06/15/2025 12:26 AM EDT Phillip Clark MD LAB BLOOD ORDERABLES Final R esult [facility] [address] [place] [address] * Hematocrit (06/15/2025 12:20 AM EDT) [facility] HCT 41.0 40.0 - 51.0 % LAB HEMATOLOGY METHOD 06/15/2025 12:36 AM EDT [facility] Blood Venous blood specimen / Unknown Venipuncture / Unknown 06/15/2025 12:20 AM EDT 06/15/2025 12:26 AM EDT Phillip Clark MD LAB BLOOD ORDERABLES Final R esult Performing Organization Address City/[facility]/ZIP Co de Phone Number [facility] [address] [place] [address] * (ABNORMAL) Hemoglobin (06/15/2025 12:20 AM EDT) [facility] HGB 13.6(L) 13.7 - 17.5 g/dL LAB HEMATOLOGY METHOD 06/15/2025 12:36 AM EDT [facility] Blood Venous blood specimen / Unknown Venipuncture / Unknown 06/15/2025 12:20 AM EDT 06/15/2025 12:26 AM EDT us Phillip Clark MD LAB BLOOD ORDERABLES Final R esult Performing Organization Address City/[facility]/ZIP Co de Phone Number [facility] [address] [place] [address] * (ABNORMAL) Blood gas, arterial (06/15/2025 12:20 AM EDT) pH, Arterial 7.37 7.31 - 7.42 LAB HEMATOLOGY METHOD 06/15/2025 12:37 AM EDT [facility] pCO2, Arterial 40 32 - 45 mmHg LAB HEMATOLOGY METHOD 06/15/2025 12:37 AM EDT [facility] pO2, Arterial 65(L) >80 mmHg LAB HEMATOLOGY METHOD 06/15/2025 12:37 AM EDT [facility] SO2, Measured, Arterial 94 94 - 98 % LAB HEMATOLOGY METHOD 06/15/2025 12:37 AM EDT [facility] Base Excess, Arterial -1.8 -2.0 - 3.0 mmol/L LAB HEMATOLOGY METHOD 06/15/2025 12:37 AM EDT [facility] Bicarbonate, Calculated, Arterial 23 22 - 26 mmol/L LAB HEMATOLOGY METHOD 06/15/2025 12:37 AM EDT [facility] Hematocrit, Whole Blood 41.1 40.0 - 51.0 % LAB HEMATOLOGY METHOD 06/15/2025 12:37 AM EDT [facility] Sodium, Whole Blood 137 136 - 145 mmol/L LAB HEMATOLOGY METHOD 06/15/2025 12:37 AM EDT [facility] Potassium, Whole Blood 4.2 3.6 - 4.9 mmol/L LAB HEMATOLOGY METHOD 06/15/2025 12:37 AM EDT [facility] Chloride, Whole Blood 110(H) 97 - 107 mmol/L LAB HEMATOLOGY METHOD 06/15/2025 12:37 AM EDT [facility] Glucose, Whole Blood 140(H) 74 - 99 mg/dL LAB HEMATOLOGY METHOD 06/15/2025 12:37 AM EDT [facility] Ionized Calcium, Whole Blood 4.5(L) 4.6 - 5.1 mg/dL LAB HEMATOLOGY METHOD 06/15/2025 12:37 AM EDT [facility] Lactate, Arterial, Whole Blood 1.8(H) 0.5 - 1.6 mmol/L LAB HEMATOLOGY METHOD 06/15/2025 12:37 AM EDT [facility] Blood Arterial blood specimen / Unknown Arterial Puncture / Unknown 06/15/2025 12:20 AM EDT 06/15/2025 12:34 AM EDT us Phillip Clark MD LAB BLOOD ORDERABLES Final R esult [facility] [address] [place] [address] * (ABNORMAL) Blood gas, arterial (06/14/2025 8:04 PM EDT) pH, Arterial 7.35 7.31 - 7.42 LAB HEMATOLOGY METHOD 06/14/2025 8:19 PM EDT [facility] pCO2, Arterial 39 32 - 45 mmHg LAB HEMATOLOGY METHOD 06/14/2025 8:19 PM EDT [facility] pO2, Arterial 88 >80 mmHg LAB HEMATOLOGY METHOD 06/14/2025 8:19 PM EDT [facility] SO2, Measured, Arterial 98 94 - 98 % LAB HEMATOLOGY METHOD 06/14/2025 8:19 PM EDT [facility] Base Excess, Arterial -3.7(L) -2.0 - 3.0 mmol/L LAB HEMATOLOGY METHOD 06/14/2025 8:19 PM EDT [facility] Bicarbonate, Calculated, Arterial 22 22 - 26 mmol/L LAB HEMATOLOGY METHOD 06/14/2025 8:19 PM EDT [facility] Hematocrit, Whole Blood 44.7 40.0 - 51.0 % LAB HEMATOLOGY METHOD 06/14/2025 8:19 PM EDT [facility] Sodium, Whole Blood 138 136 - 145 mmol/L LAB HEMATOLOGY METHOD 06/14/2025 8:19 PM EDT [facility] Potassium, Whole Blood 4.5 3.6 - 4.9 mmol/L LAB HEMATOLOGY METHOD 06/14/2025 8:19 PM EDT [facility] Chloride, Whole Blood 109(H) 97 - 107 mmol/L LAB HEMATOLOGY METHOD 06/14/2025 8:19 PM EDT [facility] Glucose, Whole Blood 185(H) 74 - 99 mg/dL LAB HEMATOLOGY METHOD 06/14/2025 8:19 PM EDT [facility] Ionized Calcium, Whole Blood 4.5(L) 4.6 - 5.1 mg/dL LAB HEMATOLOGY METHOD 06/14/2025 8:19 PM EDT [facility] Lactate, Arterial, Whole Blood 3.0(H) 0.5 - 1.6 mmol/L LAB HEMATOLOGY METHOD 06/14/2025 8:19 PM EDT [facility] Blood Arterial blood specimen / Unknown Arterial Puncture / Unknown 06/14/2025 8:04 PM EDT 06/14/2025 8:14 PM EDT Phillip Clark MD LAB BLOOD ORDERABLES Final R esult [facility] [address] [place] [address] * Potassium (06/14/2025 8:03 PM EDT) Potassium, Plasma 4.9 3.6 - 4.9 mmol/L 06/14/2025 8:33 PM EDT [facility] Blood Arterial blood specimen / Unknown Venipuncture / Unknown 06/14/2025 8:03 PM EDT 06/14/2025 8:11 PM EDT Phillip Clark MD LAB BLOOD ORDERABLES Final R esult Performing Organization Address [facility]/ZIP Co de Phone Number [facility] [address] [place] [address] * (ABNORMAL) Magnesium (06/14/2025 8:03 PM EDT) Magnesium, Plasma 2.7(H) 1.9 - 2.4 mg/dL 06/14/2025 8:40 PM EDT [facility] Blood Arterial blood specimen / Unknown Venipuncture / Unknown 06/14/2025 8:03 PM EDT 06/14/2025 8:11 PM EDT Phillip Clark MD LAB BLOOD ORDERABLES Final R esult Performing Organization Address City/[facility]/ZIP Co de Phone Number [facility] [address] [place] [address] * (ABNORMAL) CBC (06/14/2025 8:03 PM EDT) WBC Count 13.98(H) 3.70 - 10.30 10*3/uL LAB HEMATOLOGY METHOD 06/14/2025 8:20 PM EDT [facility] RBC Count 5.14 4.60 - 6.10 10*6/uL LAB HEMATOLOGY METHOD 06/14/2025 8:20 PM EDT [facility] HGB 14.5 13.7 - 17.5 g/dL LAB HEMATOLOGY METHOD 06/14/2025 8:20 PM EDT [facility] HCT 43.9 40.0 - 51.0 % LAB HEMATOLOGY METHOD 06/14/2025 8:20 PM EDT [facility] Platelet Count 158 155 - 369 10*3/uL LAB HEMATOLOGY METHOD 06/14/2025 8:20 PM EDT [facility] MCV 85 79 - 98 fL LAB HEMATOLOGY METHOD 06/14/2025 8:20 PM EDT [facility] MCH 28.2 26.0 - 32.0 pg LAB HEMATOLOGY METHOD 06/14/2025 8:20 PM EDT [facility] MCHC 33.0 30.7 - 35.5 g/dL LAB HEMATOLOGY METHOD 06/14/2025 8:20 PM EDT [facility] RDW 14.9(H) 11.5 - 14.5 % LAB HEMATOLOGY METHOD 06/14/2025 8:20 PM EDT [facility] MPV 10.8 8.8 - 12.5 fL LAB HEMATOLOGY METHOD 06/14/2025 8:20 PM EDT [facility] nRBC 0.0 <=0.0 per 100 WBCs LAB HEMATOLOGY METHOD 06/14/2025 8:20 PM EDT [facility] Blood Arterial blood specimen / Unknown Venipuncture / Unknown 06/14/2025 8:03 PM EDT 06/14/2025 8:11 PM EDT us Phillip Clark MD LAB BLOOD ORDERABLES Final R esult [facility] [address] [place] [address] * (ABNORMAL) Basic metabolic panel (06/14/2025 8:03 PM EDT) Glucose, Plasma 194(H) 74 - 99 mg/dL 06/14/2025 8:40 PM EDT [facility] BUN, Plasma 16 8 - 23 mg/dL 06/14/2025 8:40 PM EDT [facility] Creatinine, Plasma 0.85 0.70 - 1.20 mg/dL 06/14/2025 8:40 PM EDT [facility] BUN/Creatinine Ratio 19 06/14/2025 8:40 PM EDT [facility] Sodium, Plasma 139 136 - 145 mmol/L 06/14/2025 8:40 PM EDT [facility] Potassium, Plasma 5.0(H) 3.6 - 4.9 mmol/L 06/14/2025 8:40 PM EDT [facility] Chloride, Plasma 109(H) 97 - 107 mmol/L 06/14/2025 8:40 PM EDT [facility] CO2, Plasma 20(L) 22 - 29 mmol/L 06/14/2025 8:40 PM EDT [facility] Anion Gap 10 6 - 16 mmol/L 06/14/2025 8:40 PM EDT [facility] Total Calcium, Plasma 8.2(L) 8.9 - 10.2 mg/dL 06/14/2025 8:40 PM EDT [facility] eGFRcr 94.1 mL/min/1.7 3m*2 06/14/2025 8:40 PM EDT [facility] Comment:Reported eGFRcr in m L/min/1.73m2 is based the CKD-EPI 2020 equation that does not use a race coefficient. Blood Arterial blood specimen / Unknown Venipuncture / Unknown 06/14/2025 8:03 PM EDT 06/14/2025 8:11 PM EDT us Phillip Clark MD LAB BLOOD ORDERABLES Final R esult [facility] [address] [place] [address] * (ABNORMAL) Blood gas panel, arterial (06/14/2025 6:47 PM EDT) pH, Arterial 7.30(L) 7.31 - 7.42 LAB HEMATOLOGY METHOD 06/14/2025 6:57 PM EDT [facility] pCO2, Arterial 41 32 - 45 mmHg LAB HEMATOLOGY METHOD 06/14/2025 6:57 PM EDT [facility] pO2, Arterial 70(L) >80 mmHg LAB HEMATOLOGY METHOD 06/14/2025 6:57 PM EDT [facility] SO2, Measured, Arterial 94 94 - 98 % LAB HEMATOLOGY METHOD 06/14/2025 6:57 PM EDT [facility] Base Excess, Arterial -5.6(L) -2.0 - 3.0 mmol/L LAB HEMATOLOGY METHOD 06/14/2025 6:57 PM EDT [facility] Bicarbonate, Calculated, Arterial 21(L) 22 - 26 mmol/L LAB HEMATOLOGY METHOD 06/14/2025 6:57 PM EDT [facility] Hematocrit, Whole Blood 45.5 40.0 - 51.0 % LAB HEMATOLOGY METHOD 06/14/2025 6:57 PM EDT [facility] Sodium, Whole Blood 138 136 - 145 mmol/L LAB HEMATOLOGY METHOD 06/14/2025 6:57 PM EDT [facility] Potassium, Whole Blood 4.4 3.6 - 4.9 mmol/L LAB HEMATOLOGY METHOD 06/14/2025 6:57 PM EDT [facility] Chloride, Whole Blood 109(H) 97 - 107 mmol/L LAB HEMATOLOGY METHOD 06/14/2025 6:57 PM EDT [facility] Glucose, Whole Blood 209(H) 74 - 99 mg/dL LAB HEMATOLOGY METHOD 06/14/2025 6:57 PM EDT [facility] Ionized Calcium, Whole Blood 4.6 4.6 - 5.1 mg/dL LAB HEMATOLOGY METHOD 06/14/2025 6:57 PM EDT [facility] Lactate, Arterial, Whole Blood 3.9(H) 0.5 - 1.6 mmol/L LAB HEMATOLOGY METHOD 06/14/2025 6:57 PM EDT [facility] Blood Arterial blood specimen / Unknown Arterial Puncture / Unknown 06/14/2025 6:47 PM EDT 06/14/2025 6:56 PM EDT us Phillip Clark MD LAB BLOOD ORDERABLES Final R esult [facility] [address] [place] [address] * RI CRITICAL CARE, E/M 30-74 MINUTES [...] LAB HEMATOLOGY METHOD 06/14/2025 4:12 PM EDT [facility] pCO2, Arterial 43 32 - 45 mmHg LAB HEMATOLOGY METHOD 06/14/2025 4:12 PM EDT [facility] pO2, Arterial 126 >80 mmHg LAB HEMATOLOGY METHOD 06/14/2025 4:12 PM EDT [facility] SO2, Measured, Arterial 99(H) 94 - 98 % LAB HEMATOLOGY METHOD 06/14/2025 4:12 PM EDT [facility] Base Excess, Arterial -5.8(L) -2.0 - 3.0 mmol/L LAB HEMATOLOGY METHOD 06/14/2025 4:12 PM EDT [facility] Bicarbonate, Calculated, Arterial 21(L) 22 - 26 mmol/L LAB HEMATOLOGY METHOD 06/14/2025 4:12 PM EDT [facility] Hematocrit, Whole Blood 43.9 40.0 - 51.0 % LAB HEMATOLOGY METHOD 06/14/2025 4:12 PM EDT [facility] Sodium, Whole Blood 139 136 - 145 mmol/L LAB HEMATOLOGY METHOD 06/14/2025 4:12 PM EDT [facility] Potassium, Whole Blood 3.8 3.6 - 4.9 mmol/L LAB HEMATOLOGY METHOD 06/14/2025 4:12 PM EDT [facility] Chloride, Whole Blood 109(H) 97 - 107 mmol/L LAB HEMATOLOGY METHOD 06/14/2025 4:12 PM EDT [facility] Glucose, Whole Blood 179(H) 74 - 99 mg/dL LAB HEMATOLOGY METHOD 06/14/2025 4:12 PM EDT [facility] Ionized Calcium, Whole Blood 4.6 4.6 - 5.1 mg/dL LAB HEMATOLOGY METHOD 06/14/2025 4:12 PM EDT [facility] Lactate, Arterial, Whole Blood 4.3(H) 0.5 - 1.6 mmol/L LAB HEMATOLOGY METHOD 06/14/2025 4:12 PM EDT [facility] Blood Arterial blood specimen / Unknown Arterial Puncture / Unknown 06/14/2025 3:57 PM EDT 06/14/2025 4:11 PM EDT us Phillip Clark MD LAB BLOOD ORDERABLES Final R esult [facility] [address] [place] [address] * (ABNORMAL) Blood gas panel with oximetry, mixed venous (06/14/2025 3:00 PM EDT) pH, Mixed Venous 7.28(L) 7.32 - 7.43 LAB HEMATOLOGY METHOD 06/14/2025 3:24 PM EDT [facility] pCO2, Mixed Venous 47 40 - 55 mmHg LAB HEMATOLOGY METHOD 06/14/2025 3:24 PM EDT [facility] pO2, Mixed Venous 54(H) 25 - 40 mmHg LAB HEMATOLOGY METHOD 06/14/2025 3:24 PM EDT [facility] SO2, Measured, Mixed Venous 84(H) 65 - 80 % LAB HEMATOLOGY METHOD 06/14/2025 3:24 PM EDT [facility] Bicarbonate, Calculated, Mixed Venous 22 22 - 26 mmol/L LAB HEMATOLOGY METHOD 06/14/2025 3:24 PM EDT [facility] Base Excess, Mixed Venous -4.7(L) -2.0 - 3.0 mmol/L LAB HEMATOLOGY METHOD 06/14/2025 3:24 PM EDT [facility] Hematocrit, Whole Blood 43.0 40.0 - 51.0 % LAB HEMATOLOGY METHOD 06/14/2025 3:24 PM EDT [facility] Sodium, Whole Blood 139 136 - 145 mmol/L LAB HEMATOLOGY METHOD 06/14/2025 3:24 PM EDT [facility] Potassium, Whole Blood 3.7 3.6 - 4.9 mmol/L LAB HEMATOLOGY METHOD 06/14/2025 3:24 PM EDT [facility] Chloride, Whole Blood 110(H) 97 - 107 mmol/L LAB HEMATOLOGY METHOD 06/14/2025 3:24 PM EDT [facility] Ionized Calcium, Whole Blood 4.6 4.6 - 5.1 mg/dL LAB HEMATOLOGY METHOD 06/14/2025 3:24 PM EDT [facility] Glucose, Whole Blood 149(H) 74 - 99 mg/dL LAB HEMATOLOGY METHOD 06/14/2025 3:24 PM EDT [facility] Oxyhemoglobin, Mixed Venous, Whole Blood 81.9(H) 40.0 - 70.0 % LAB HEMATOLOGY METHOD 06/14/2025 3:24 PM EDT [facility] Hemoglobin Reduced, Mixed Venous, Whole Blood 16.1 % LAB HEMATOLOGY METHOD 06/14/2025 3:24 PM EDT [facility] Total Hemoglobin, Mixed Venous, Whole Blood 14.0 13.7 - 17.5 g/dL LAB HEMATOLOGY METHOD 06/14/2025 3:24 PM EDT [facility] Blood Mixed venous blood specimen / Unknown Venipuncture / Unknown 06/14/2025 3:00 PM EDT 06/14/2025 3:23 PM EDT us Phillip Clark MD LAB BLOOD ORDERABLES Final R esult [facility] [address] [place] [address] * XR Abdomen 1 View (06/14/2025 2:57 [...] Detected Not Detected 06/15/2025 12:46 PM EDT [facility] Swab (Axilla and Groin) Non-blood Collection / Unknown 06/14/2025 2:37 PM EDT 06/14/2025 3:10 PM EDT Narrative [facility] - 06/15/2025 12:46 PM EDT This PCR assay was developed and its performance characteristics determined by [facility] as appropriate for clinical purposes. This assay has not been cleared or approved by the FDA, but is performed in a CLIA regulated laboratory that is qualified to perform high-complexity testing. us Phillip Clark MD LAB MICROBIOLOGY - GENERAL O RDERABLES Final Result [facility] [address] [place] [address] * Multi Drug Resistance Test (06/14/2025 2:37 PM EDT) Culture No growth at day 1 06/15/2025 4:03 PM EDT [facility] Swab (Nares and Smita Rectal) Non-blood Collection / Unknown 06/14/2025 2:37 PM EDT 06/14/2025 3:10 PM EDT Narrative [facility] - 06/15/2025 4:03 PM EDT This test was developed and its performance characteristics determined by the [facility]. Although the media is FDA-approved, it is not FDA-approved for all specimen types submitted. The FDA has determined that such clearance or approval is not necessary. This test is used for surveillance purposes. It should not be regarded as investigational or for research. The [facility] is certified under the Clinical Laboratory Improvement Amendments of 1988 (CLIA-88) as qualified to perform high complexity clinical laboratory testing. Phillip Clark MD LAB MICROBIOLOGY - GENERAL O RDERABLES Final Result [facility] [address] [place] [address] * (ABNORMAL) Blood gas, arterial (06/14/2025 2:37 PM EDT) pH, Arterial 7.31 7.31 - 7.42 LAB HEMATOLOGY METHOD 06/14/2025 2:58 PM EDT [facility] pCO2, Arterial 42 32 - 45 mmHg LAB HEMATOLOGY METHOD 06/14/2025 2:58 PM EDT [facility] pO2, Arterial 154 >80 mmHg LAB HEMATOLOGY METHOD 06/14/2025 2:58 PM EDT [facility] SO2, Measured, Arterial 100(H) 94 - 98 % LAB HEMATOLOGY METHOD 06/14/2025 2:58 PM EDT [facility] Base Excess, Arterial -5.1(L) -2.0 - 3.0 mmol/L LAB HEMATOLOGY METHOD 06/14/2025 2:58 PM EDT [facility] Bicarbonate, Calculated, Arterial 21(L) 22 - 26 mmol/L LAB HEMATOLOGY METHOD 06/14/2025 2:58 PM EDT [facility] Hematocrit, Whole Blood 43.5 40.0 - 51.0 % LAB HEMATOLOGY METHOD 06/14/2025 2:58 PM EDT [facility] Sodium, Whole Blood 139 136 - 145 mmol/L LAB HEMATOLOGY METHOD 06/14/2025 2:58 PM EDT [facility] Potassium, Whole Blood 3.6 3.6 - 4.9 mmol/L LAB HEMATOLOGY METHOD 06/14/2025 2:58 PM EDT [facility] Chloride, Whole Blood 110(H) 97 - 107 mmol/L LAB HEMATOLOGY METHOD 06/14/2025 2:58 PM EDT [facility] Glucose, Whole Blood 131(H) 74 - 99 mg/dL LAB HEMATOLOGY METHOD 06/14/2025 2:58 PM EDT [facility] Ionized Calcium, Whole Blood 4.7 4.6 - 5.1 mg/dL LAB HEMATOLOGY METHOD 06/14/2025 2:58 PM EDT [facility] Lactate, Arterial, Whole Blood 5.0(H) 0.5 - 1.6 mmol/L LAB HEMATOLOGY METHOD 06/14/2025 2:58 PM EDT [facility] Blood Arterial blood specimen / Unknown Arterial Puncture / Unknown 06/14/2025 2:37 PM EDT 06/14/2025 2:57 PM EDT us Phillip Clark MD LAB BLOOD ORDERABLES Final R esult [facility] [address] [place] [address] * ECG Adult - Upon Admissoin to CVICU (06/14/2025 2:36 PM EDT) EKG DIAGNOSIS CLASS Abnormal MUSE ECG Ventricular Rate 61 BPM MUSE ECG Atrial Rate 61 BPM MUSE ECG RI Interval 176 ms MUSE ECG QRSD Interval 154 ms MUSE ECG QT Interval 520 ms MUSE ECG QTC Interval 523 ms MUSE ECG P [place] 58 degrees MUSE ECG R [place] 113 degrees MUSE ECG T Wave [place] -67 degrees MUSE ECG Diagnosis Sinus rhythm [...] ECG ORDERABLES Final Result MUSE ECG * Potassium, Plasma (06/14/2025 2:36 PM EDT) Potassium, Plasma 3.8 3.6 - 4.9 mmol/L 06/14/2025 4:13 PM EDT [facility] Comment:Hemolyzed, result ma y be falsely increased. Blood Venous blood specimen / Unknown Venipuncture / Unknown 06/14/2025 2:36 PM EDT 06/14/2025 3:20 PM EDT Phillip Clark MD LAB BLOOD ORDERABLES Final R esult Performing Organization Address City/[facility]/ZIP Co de Phone Number [facility] [address] [place] [address] * Hematocrit (06/14/2025 2:36 PM EDT) HCT 42.6 40.0 - 51.0 % LAB HEMATOLOGY METHOD 06/14/2025 4:38 PM EDT [facility] Blood Venous blood specimen / Unknown Venipuncture / Unknown 06/14/2025 2:36 PM EDT 06/14/2025 4:17 PM EDT us Phillip Clark MD LAB BLOOD ORDERABLES Final R esult Performing Organization Address [facility] Co de Phone Number [facility] [address] [place] [address] * Hemoglobin (06/14/2025 2:36 PM EDT) HGB 13.9 13.7 - 17.5 g/dL LAB HEMATOLOGY METHOD 06/14/2025 4:38 PM EDT [facility] Blood Venous blood specimen / Unknown Venipuncture / Unknown 06/14/2025 2:36 PM EDT 06/14/2025 4:17 PM EDT Phillip Clark MD LAB BLOOD ORDERABLES Final R esult Performing Organization Address City/[facility] Co de Phone Number [facility] [address] [place] [address] * APTT (06/14/2025 2:36 PM EDT) aPTT 29 25 - 35 sec LAB COAGULATION METHOD 06/14/2025 4:11 PM EDT [facility] Blood Venous blood specimen / Unknown Venipuncture / Unknown 06/14/2025 2:36 PM EDT 06/14/2025 3:18 PM EDT Phillip Clark MD LAB BLOOD ORDERABLES Final R esult Performing Organization Address City/[facility]/ZIP Co de Phone Number [facility] [address] [place] [address] * (ABNORMAL) Protime-INR (06/14/2025 2:36 PM EDT) Prothrombin Time 16.6(H) 12.0 - 14.3 sec LAB COAGULATION METHOD 06/14/2025 4:11 PM EDT [facility] INR 1.3(H) 0.9 - 1.1 LAB COAGULATION METHOD 06/14/2025 4:11 PM EDT [facility] Blood Venous blood specimen / Unknown Venipuncture / Unknown 06/14/2025 2:36 PM EDT 06/14/2025 3:18 PM EDT Narrative [facility] - 06/14/2025 4:11 PM EDT [...] MD LAB BLOOD ORDERABLES Final R esult [facility] [address] [place] [address] * (ABNORMAL) Phosphorus (06/14/2025 2:36 PM EDT) Phosphorus, Plasma 2.3(L) 2.5 - 4.5 mg/dL 06/14/2025 4:13 PM EDT [facility] Blood Venous blood specimen / Unknown Venipuncture / Unknown 06/14/2025 2:36 PM EDT 06/14/2025 3:20 PM EDT Phillip Clark MD LAB BLOOD ORDERABLES Final R esult Performing Organization Address [facility] Co de Phone Number [facility] [address] [place] [address] * (ABNORMAL) Magnesium (06/14/2025 2:36 PM EDT) Magnesium, Plasma 3.2(H) 1.9 - 2.4 mg/dL 06/14/2025 6:55 PM EDT [facility] Blood Venous blood specimen / Unknown Venipuncture / Unknown 06/14/2025 2:36 PM EDT 06/14/2025 3:20 PM EDT Phillip Clark MD LAB BLOOD ORDERABLES Final R esult Performing Organization Address [facility] Phone Number [facility] [address] [place] [address] * (ABNORMAL) Basic metabolic panel (06/14/2025 2:36 PM EDT) Glucose, Plasma 134(H) 74 - 99 mg/dL 06/14/2025 4:13 PM EDT [facility] BUN, Plasma 14 8 - 23 mg/dL 06/14/2025 4:13 PM EDT [facility] Creatinine, Plasma 0.83 0.70 - 1.20 mg/dL 06/14/2025 4:13 PM EDT [facility] BUN/Creatinine Ratio 17 06/14/2025 4:13 PM EDT [facility] Sodium, Plasma 140 136 - 145 mmol/L 06/14/2025 4:13 PM EDT [facility] Potassium, Plasma 3.8 3.6 - 4.9 mmol/L 06/14/2025 4:13 PM EDT [facility] Comment:Hemolyzed, result ma y be falsely increased. Chloride, Plasma 108(H) 97 - 107 mmol/L 06/14/2025 4:13 PM EDT [facility] CO2, Plasma 19(L) 22 - 29 mmol/L 06/14/2025 4:13 PM EDT [facility] Anion Gap 13 6 - 16 mmol/L 06/14/2025 4:13 PM EDT [facility] Total Calcium, Plasma 8.3(L) 8.9 - 10.2 mg/dL 06/14/2025 4:13 PM EDT [facility] eGFRcr 94.7 mL/min/1.7 3m*2 06/14/2025 4:13 PM EDT [facility] Comment:Reported eGFRcr in m L/min/1.73m2 is based the CKD-EPI 2020 equation that does not use a race coefficient. Blood Venous blood specimen / Unknown Venipuncture / Unknown 06/14/2025 2:36 PM EDT 06/14/2025 3:20 PM EDT us Phillip Clark MD LAB BLOOD ORDERABLES Final R esult [facility] [address] [place] [address] * (ABNORMAL) CBC (06/14/2025 2:36 PM EDT) WBC Count 15.83(H) 3.70 - 10.30 10*3/uL LAB HEMATOLOGY METHOD 06/14/2025 4:38 PM EDT [facility] RBC Count 4.98 4.60 - 6.10 10*6/uL LAB HEMATOLOGY METHOD 06/14/2025 4:38 PM EDT [facility] HGB 13.9 13.7 - 17.5 g/dL LAB HEMATOLOGY METHOD 06/14/2025 4:38 PM EDT [facility] HCT 42.6 40.0 - 51.0 % LAB HEMATOLOGY METHOD 06/14/2025 4:38 PM EDT [facility] Platelet Count 160 155 - 369 10*3/uL LAB HEMATOLOGY METHOD 06/14/2025 4:38 PM EDT [facility] MCV 86 79 - 98 fL LAB HEMATOLOGY METHOD 06/14/2025 4:38 PM EDT [facility] MCH 27.9 26.0 - 32.0 pg LAB HEMATOLOGY METHOD 06/14/2025 4:38 PM EDT [facility] MCHC 32.6 30.7 - 35.5 g/dL LAB HEMATOLOGY METHOD 06/14/2025 4:38 PM EDT [facility] RDW 15.2(H) 11.5 - 14.5 % LAB HEMATOLOGY METHOD 06/14/2025 4:38 PM EDT [facility] MPV 10.3 8.8 - 12.5 fL LAB HEMATOLOGY METHOD 06/14/2025 4:38 PM EDT [facility] nRBC 0.0 <=0.0 per 100 WBCs LAB HEMATOLOGY METHOD 06/14/2025 4:38 PM EDT [facility] Blood Venous blood specimen / Unknown Venipuncture / Unknown 06/14/2025 2:36 PM EDT 06/14/2025 4:17 PM EDT us Phillip Clark MD LAB BLOOD ORDERABLES Final R esult [facility] [address] [place] [address] * (ABNORMAL) POCT arterial blood gas gem (06/14/2025 2:00 PM EDT) pH, Arterial 7.35 7.31 - 7.42 06/14/2025 2:02 PM EDT [facility] pCO2, Arterial 38 32 - 45 mm Hg 06/14/2025 2:02 PM EDT [facility] pO2, Arterial 376 >80 mm Hg 06/14/2025 2:02 PM EDT [facility] SO2, Arterial 100(H) 94 - 98 % 06/14/2025 2:02 PM EDT [facility] Base Excess, Arterial -4.2(L) -2 - 3 mmol/L 06/14/2025 2:02 PM EDT [facility] HCO3, Arterial 21.0(L) 22 - 26 mmol/L 06/14/2025 2:02 PM EDT [facility] Total Hemoglobin, Arterial, Whole Blood 14.5 13.7 - 17.5 g/dL 06/14/2025 2:02 PM EDT [facility] Hematocrit, Arterial 44.0 40 - 51.0 % 06/14/2025 2:02 PM EDT [facility] Sodium, Arterial 136 136 - 145 mmol/L 06/14/2025 2:02 PM EDT [facility] Potassium, Arterial 3.4(L) 3.6 - 4.9 mmol/L 06/14/2025 2:02 PM EDT [facility] Chloride, Whole Blood 105 97 - 107 mmol/L 06/14/2025 2:02 PM EDT [facility] Glucose, Arterial 138(H) 74 - 99 mg/dL 06/14/2025 2:02 PM EDT [facility] Ionized Calcium, Arterial 4.9 4.6 - 5.1 mg/dL 06/14/2025 2:02 PM EDT [facility] Lactate, Arterial 4.2(H) 0.5 - 1.6 mmol/L 06/14/2025 2:02 PM EDT [facility] Body Temperature 37.0 Celsius 06/14/2025 2:02 PM EDT [facility] pH, Temp Corrected, Arterial 7.35 7.31 - 7.42 06/14/2025 2:02 PM EDT [facility] pCO2, Temp Corrected, Arterial 38 32 - 45 mm Hg 06/14/2025 2:02 PM EDT [facility] pO2, Temp Corrected, Arterial 376 >80 mm Hg 06/14/2025 2:02 PM EDT [facility] Credit Collections Rep ID Ricki Zamarripa 06/14/2025 2:02 PM EDT [facility] Blood Whole blood specimen / Unknown 06/14/2025 2:00 PM EDT 06/14/2025 2:02 PM EDT us Phillip Clark MD LAB POINT OF CARE TE ST DOCKED DEVICE UNSOLICITED RESULTS Final Result [facility] [address] [place] [address] * (ABNORMAL) POCT arterial blood gas gem (06/14/2025 1:22 PM EDT) pH, Arterial 7.34 7.31 - 7.42 06/14/2025 1:23 PM EDT [facility] pCO2, Arterial 41 32 - 45 mm Hg 06/14/2025 1:23 PM EDT [facility] pO2, Arterial 518 >80 mm Hg 06/14/2025 1:23 PM EDT [facility] SO2, Arterial 100(H) 94 - 98 % 06/14/2025 1:23 PM EDT [facility] Base Excess, Arterial -3.5(L) -2 - 3 mmol/L 06/14/2025 1:23 PM T [facility] HCO3, Arterial 22.1 22 - 26 mmol/L 06/14/2025 1:23 PM EDT [facility] Total Hemoglobin, Arterial, Whole Blood 13.2(L) 13.7 - 17.5 g/dL 06/14/2025 1: PM T [facility] Hematocrit, Arterial 40.0 40 - 51.0 % 06/14/2025 1: PM T [facility] Sodium, Arterial 139 136 - 145 mmol/L 06/14/2025 1:23 PM T [facility] Potassium, Arterial 3.3(L) 3.6 - 4.9 mmol/L 06/14/2025 1:23 PM T [facility] Chloride, Whole Blood 104 97 - 107 mmol/L 06/14/2025 1:23 PM T [facility] Glucose, Arterial 137(H) 74 - 99 mg/dL 06/14/2025 1: PM T [facility] Ionized Calcium, Arterial 4.2(L) 4.6 - 5.1 mg/dL 06/14/2025 1:23 PM T [facility] Lactate, Arterial 3.0(H) 0.5 - 1.6 mmol/L 06/14/2025 1:23 PM EDT [facility] Body Temperature 37.0 Celsius 06/14/2025 1:23 PM T [facility] pH, Temp Corrected, Arterial 7.34 7.31 - 7.42 06/14/2025 1:23 PM T [facility] pCO2, Temp Corrected, Arterial 41 32 - 45 mm Hg 06/14/2025 1:23 PM EDT [facility] pO2, Temp Corrected, Arterial 518 >80 mm Hg 06/14/2025 1:23 PM EDT [facility] Credit Collections Rep ID Soni Zamarripan 06/14/2025 1:23 PM EDT [facility] Blood Whole blood specimen / Unknown 06/14/2025 1:22 PM EDT 06/14/2025 1:23 PM EDT Phillip Clark MD LAB POINT OF CARE TE ST DOCKED DEVICE UNSOLICITED RESULTS Final Result Performing Organization Address City/State/[facility] Co de Phone Number [facility] [address] [place] [address] * (ABNORMAL) POCT arterial blood gas gem (06/14/2025 12:52 PM EDT) pH, Arterial 7.40 7.31 - 7.42 06/14/2025 12:54 PM EDT [facility] pCO2, Arterial 35 32 - 45 mm Hg 06/14/2025 12:54 PM EDT [facility] pO2, Arterial 399 >80 mm Hg 06/14/2025 12:54 PM EDT [facility] SO2, Arterial 100(H) 94 - 98 % 06/14/2025 12:54 PM EDT [facility] Base Excess, Arterial -2.6(L) -2 - 3 mmol/L 06/14/2025 12:54 PM EDT [facility] HCO3, Arterial 21.7(L) 22 - 26 mmol/L 06/14/2025 12:54 PM EDT [facility] Total Hemoglobin, Arterial, Whole Blood 11.7(L) 13.7 - 17.5 g/dL 06/14/2025 12:54 PM EDT [facility] Hematocrit, Arterial 35.0(L) 40 - 51.0 % 06/14/2025 12:54 PM EDT [facility] Sodium, Arterial 134(L) 136 - 145 mmol/L 06/14/2025 12:54 PM EDT [facility] Potassium, Arterial 4.2 3.6 - 4.9 mmol/L 06/14/2025 12:54 PM EDT [facility] Chloride, Whole Blood 107 97 - 107 mmol/L 06/14/2025 12:54 PM EDT [facility] Glucose, Arterial 148(H) 74 - 99 mg/dL 06/14/2025 12:54 PM EDT [facility] Ionized Calcium, Arterial 4.1(L) 4.6 - 5.1 mg/dL 06/14/2025 12:54 PM EDT [facility] Lactate, Arterial 2.2(H) 0.5 - 1.6 mmol/L 06/14/2025 12:54 PM EDT [facility] Body Temperature 37.0 Celsius 06/14/2025 12:54 PM EDT [facility] pH, Temp Corrected, Arterial 7.40 7.31 - 7.42 06/14/2025 12:54 PM EDT [facility] pCO2, Temp Corrected, Arterial 35 32 - 45 mm Hg 06/14/2025 12:54 PM EDT [facility] pO2, Temp Corrected, Arterial 399 >80 mm Hg 06/14/2025 12:54 PM EDT [facility] Credit Collections Rep ID Jean Claude Staley 06/14/2025 12:54 PM EDT [facility] Blood Whole blood specimen / Unknown 06/14/2025 12:52 PM EDT 06/14/2025 12:54 PM EDT Phillip Clark MD LAB POINT OF CARE TE ST DOCKED DEVICE UNSOLICITED RESULTS Final Result [facility] [address] [place] [address] * POCT ACT (06/14/2025 12:43 PM EDT) ACT+ (HIGH RANGE) 98 68 - 600 Seconds 06/14/2025 12:49 PM EDT [facility] Credit Collections Rep ID Vick Dupont 06/14/2025 12:49 PM EDT [facility] ACT Device ID [id number] 06/14/2025 12:49 PM EDT [facility] Comment 06/14/2025 12:49 PM EDT [facility] Comment: ACT performed by staff [...] ST DOCKED DEVICE UNSOLICITED RESULTS Final Result [facility] [address] [facility] [address] [place] [address] * (ABNORMAL) POCT arterial blood gas gem (06/14/2025 12:16 PM EDT) pH, Arterial 7.42 7.31 - 7.42 06/14/2025 12:19 PM EDT [facility] pCO2, Arterial 36 32 - 45 mm Hg 06/14/2025 12:19 PM EDT [facility] pO2, Arterial 358 >80 mm Hg 06/14/2025 12:19 PM EDT [facility] SO2, Arterial 99(H) 94 - 98 % 06/14/2025 12:19 PM EDT [facility] Base Excess, Arterial -0.8 -2 - 3 mmol/L 06/14/2025 12:19 PM EDT [facility] HCO3, Arterial 23.4 22 - 26 mmol/L 06/14/2025 12:19 PM EDT [facility] Total Hemoglobin, Arterial, Whole Blood 11.3(L) 13.7 - 17.5 g/dL 06/14/2025 12:19 PM EDT [facility] Hematocrit, Arterial 34.0(L) 40 - 51.0 % 06/14/2025 12:19 PM EDT [facility] Sodium, Arterial 134(L) 136 - 145 mmol/L 06/14/2025 12:19 PM EDT [facility] Potassium, Arterial 5.7(H) 3.6 - 4.9 mmol/L 06/14/2025 12:19 PM EDT [facility] Chloride, Whole Blood 105 97 - 107 mmol/L 06/14/2025 12:19 PM EDT [facility] Glucose, Arterial 119(H) 74 - 99 mg/dL 06/14/2025 12:19 PM EDT [facility] Ionized Calcium, Arterial 4.0(L) 4.6 - 5.1 mg/dL 06/14/2025 12:19 PM EDT [facility] Lactate, Arterial 1.6 0.5 - 1.6 mmol/L 06/14/2025 12:19 PM EDT [facility] Body Temperature 37.0 Celsius 06/14/2025 12:19 PM EDT [facility] pH, Temp Corrected, Arterial 7.42 7.31 - 7.42 06/14/2025 12:19 PM EDT [facility] pCO2, Temp Corrected, Arterial 36 32 - 45 mm Hg 06/14/2025 12:19 PM EDT [facility] pO2, Temp Corrected, Arterial 358 >80 mm Hg 06/14/2025 12:19 PM EDT [facility] Credit Collections Rep ID Vick Dupont 06/14/2025 12:19 PM EDT [facility] Blood Whole blood specimen / Unknown 06/14/2025 12:16 PM EDT 06/14/2025 12:19 PM EDT us Phillip Clark MD LAB POINT OF CARE TE ST DOCKED DEVICE UNSOLICITED RESULTS Final Result Performing Organization Address City/State/[facility] Co de Phone Number [facility] [address] [place] [address] * (ABNORMAL) POCT arterial blood gas gem (06/14/2025 12:06 PM EDT) pH, Arterial 7.39 7.31 - 7.42 06/14/2025 12:09 PM EDT [facility] pCO2, Arterial 40 32 - 45 mm Hg 06/14/2025 12:09 PM EDT [facility] pO2, Arterial 378 >80 mm Hg 06/14/2025 12:09 PM EDT [facility] SO2, Arterial 100(H) 94 - 98 % 06/14/2025 12:09 PM EDT [facility] Base Excess, Arterial -0.7 -2 - 3 mmol/L 06/14/2025 12:09 PM EDT [facility] HCO3, Arterial 24.2 22 - 26 mmol/L 06/14/2025 12:09 PM EDT [facility] Total Hemoglobin, Arterial, Whole Blood 11.5(L) 13.7 - 17.5 g/dL 06/14/2025 12:09 PM EDT [facility] Hematocrit, Arterial 35.0(L) 40 - 51.0 % 06/14/2025 12:09 PM EDT [facility] Sodium, Arterial 134(L) 136 - 145 mmol/L 06/14/2025 12:09 PM EDT [facility] Potassium, Arterial 5.0(H) 3.6 - 4.9 mmol/L 06/14/2025 12:09 PM EDT [facility] Chloride, Whole Blood 105 97 - 107 mmol/L 06/14/2025 12:09 PM EDT [facility] Glucose, Arterial 123(H) 74 - 99 mg/dL 06/14/2025 12:09 PM EDT [facility] Ionized Calcium, Arterial 4.2(L) 4.6 - 5.1 mg/dL 06/14/2025 12:09 PM EDT [facility] Lactate, Arterial 1.2 0.5 - 1.6 mmol/L 06/14/2025 12:09 PM EDT [facility] Body Temperature 37.0 Celsius 06/14/2025 12:09 PM EDT [facility] pH, Temp Corrected, Arterial 7.39 7.31 - 7.42 06/14/2025 12:09 PM EDT [facility] pCO2, Temp Corrected, Arterial 40 32 - 45 mm Hg 06/14/2025 12:09 PM EDT [facility] pO2, Temp Corrected, Arterial 378 >80 mm Hg 06/14/2025 12:09 PM EDT [facility] Credit Collections Rep ID Vick Dupont 06/14/2025 12:09 PM EDT [facility] Blood Whole blood specimen / Unknown 06/14/2025 12:06 PM EDT 06/14/2025 12:09 PM EDT us Phillip Clark MD LAB POINT OF CARE TE ST DOCKED DEVICE UNSOLICITED RESULTS Final Result [facility] [address] [place] [address] * (ABNORMAL) QPLUS (06/14/2025 11:55 AM EDT) [...] Seconds 06/14/2025 12:12 PM EDT [facility] Credit Collections Rep ID Ricki Zamarripa 06/14/2025 12:12 PM EDT [facility] Device ID [id number] 06/14/2025 12:12 PM EDT [facility] Whole Blood 06/14/2025 11:5 5 AM EDT 06/14/2025 12:12 PM EDT Narrative [facility] - 06/14/2025 12:[address]: No Clot Detected us Phillip Clark MD LAB POINT OF CARE TE ST DOCKED DEVICE UNSOLICITED RESULTS Final Result [facility] [address] [place] [address] * POCT ACT (06/14/2025 11:54 AM EDT) ACT+ (HIGH RANGE) 510 68 - 600 Seconds 06/14/2025 12:07 PM EDT [facility] Credit Collections Rep ID Vick Dupont 06/14/2025 12:07 PM EDT [facility] ACT Device ID [id number] 06/14/2025 12:07 PM EDT [facility] Comment 06/14/2025 12:07 PM EDT [facility] Comment: ACT performed by staff [...] 11:54 AM EDT 06/14/2025 12:07 PM EDT us Phillip Clark MD LAB POINT OF CARE TE ST DOCKED DEVICE UNSOLICITED RESULTS Final Result [facility] [address] LAB [address] [place] [address] * (ABNORMAL) POCT arterial blood gas gem (06/14/2025 11:33 AM EDT) pH, Arterial 7.37 7.31 - 7.42 06/14/2025 11:35 AM EDT [facility] pCO2, Arterial 43 32 - 45 mm Hg 06/14/2025 11:35 AM EDT [facility] pO2, Arterial 380 >80 mm Hg 06/14/2025 11:35 AM EDT [facility] SO2, Arterial 99(H) 94 - 98 % 06/14/2025 11:35 AM EDT [facility] Base Excess, Arterial -0.5 -2 - 3 mmol/L 06/14/2025 11:35 AM EDT [facility] HCO3, Arterial 24.9 22 - 26 mmol/L 06/14/2025 11:35 AM EDT [facility] Total Hemoglobin, Arterial, Whole Blood 11.5(L) 13.7 - 17.5 g/dL 06/14/2025 11:35 AM EDT [facility] Hematocrit, Arterial 35.0(L) 40 - 51.0 % 06/14/2025 11:35 AM EDT [facility] Sodium, Arterial 134(L) 136 - 145 mmol/L 06/14/2025 11:35 AM EDT [facility] Potassium, Arterial 5.6(H) 3.6 - 4.9 mmol/L 06/14/2025 11:35 AM EDT [facility] Chloride, Whole Blood 103 97 - 107 mmol/L 06/14/2025 11:35 AM EDT [facility] Glucose, Arterial 123(H) 74 - 99 mg/dL 06/14/2025 11:35 AM EDT [facility] Ionized Calcium, Arterial 4.2(L) 4.6 - 5.1 mg/dL 06/14/2025 11:35 AM EDT [facility] Lactate, Arterial 1.0 0.5 - 1.6 mmol/L 06/14/2025 11:35 AM EDT [facility] Body Temperature 37.0 Celsius 06/14/2025 11:35 AM EDT [facility] pH, Temp Corrected, Arterial 7.37 7.31 - 7.42 06/14/2025 11:35 AM EDT [facility] pCO2, Temp Corrected, Arterial 43 32 - 45 mm Hg 06/14/2025 11:35 AM EDT [facility] pO2, Temp Corrected, Arterial 380 >80 mm Hg 06/14/2025 11:35 AM EDT [facility] Credit Collections Rep ID Vick Dupont 06/14/2025 11:35 AM EDT [facility] Blood Whole blood specimen / Unknown 06/14/2025 11:33 AM EDT 06/14/2025 11:35 AM EDT Phillip Clark MD LAB POINT OF CARE TE ST DOCKED DEVICE UNSOLICITED RESULTS Final Result Performing Organization Address [facility] de Phone Number [facility] [address] [place] [address] * POCT ACT (06/14/2025 11:24 AM EDT) [facility] Signature ACT+ (HIGH RANGE) 520 68 - 600 Seconds 06/14/2025 11:37 AM EDT [facility] Credit Collections Rep ID Vick Dupont 06/14/2025 11:37 AM EDT [facility] ACT Device ID [id number] 06/14/2025 11:37 AM EDT [facility] Comment 06/14/2025 11:37 AM EDT [facility] Comment: ACT performed by staff [...] UNSOLICITED RESULTS Final Result Performing Organization Address [facility]/ZIP Co de Phone Number [facility] [address] [facility] [address] [place] [address] * (ABNORMAL) POCT arterial blood gas gem (06/14/2025 11:03 AM EDT) pH, Arterial 7.40 7.31 - 7.42 06/14/2025 11:04 AM EDT [facility] pCO2, Arterial 41 32 - 45 mm Hg 06/14/2025 11:04 AM EDT [facility] pO2, Arterial 406 >80 mm Hg 06/14/2025 11:04 AM EDT [facility] SO2, Arterial 100(H) 94 - 98 % 06/14/2025 11:04 AM EDT [facility] Base Excess, Arterial 0.5 -2 - 3 mmol/L 06/14/2025 11:04 AM EDT [facility] HCO3, Arterial 25.4 22 - 26 mmol/L 06/14/2025 11:04 AM EDT [facility] Total Hemoglobin, Arterial, Whole Blood 11.9(L) 13.7 - 17.5 g/dL 06/14/2025 11:04 AM EDT [facility] Hematocrit, Arterial 36.0(L) 40 - 51.0 % 06/14/2025 11:04 AM EDT [facility] Sodium, Arterial 133(L) 136 - 145 mmol/L 06/14/2025 11:04 AM EDT [facility] Potassium, Arterial 5.3(H) 3.6 - 4.9 mmol/L 06/14/2025 11:04 AM EDT [facility] Chloride, Whole Blood 103 97 - 107 mmol/L 06/14/2025 11:04 AM EDT [facility] Glucose, Arterial 121(H) 74 - 99 mg/dL 06/14/2025 11:04 AM EDT [facility] Ionized Calcium, Arterial 4.2(L) 4.6 - 5.1 mg/dL 06/14/2025 11:04 AM EDT [facility] Lactate, Arterial 1.0 0.5 - 1.6 mmol/L 06/14/2025 11:04 AM EDT [facility] Body Temperature 37.0 Celsius 06/14/2025 11:04 AM EDT [facility] pH, Temp Corrected, Arterial 7.40 7.31 - 7.42 06/14/2025 11:04 AM EDT [facility] pCO2, Temp Corrected, Arterial 41 32 - 45 mm Hg 06/14/2025 11:04 AM EDT [facility] pO2, Temp Corrected, Arterial 406 >80 mm Hg 06/14/2025 11:04 AM EDT [facility] Credit Collections Rep ID Vick Dupont 06/14/2025 11:04 AM EDT [facility] Blood Whole blood specimen / Unknown 06/14/2025 11:03 AM EDT 06/14/2025 11:04 AM EDT us Phillip Clark MD LAB POINT OF CARE TE ST DOCKED DEVICE UNSOLICITED RESULTS Final Result Performing Organization Address City/[facility] Co de Phone Number [facility] [address] [place] [address] * POCT ACT (06/14/2025 10:57 AM EDT) [facility] Signature ACT+ (HIGH RANGE) 569 68 - 600 Seconds 06/14/2025 11:09 AM EDT [facility] Credit Collections Rep ID Vick Dupont 06/14/2025 11:09 AM EDT [facility] ACT Device ID [id number] 06/14/2025 11:09 AM EDT [facility] Comment 06/14/2025 11:09 AM EDT [facility] Comment: ACT performed by staff [...] UNSOLICITED RESULTS Final Result Performing Organization Address [facility] Co de Phone Number [facility] [address] LAB [address] [place] [address] * (ABNORMAL) POCT arterial blood gas gem (06/14/2025 10:33 AM [facility]) pH, Arterial 7.39 7.31 - 7.42 06/14/2025 10:34 AM [facility] pCO2, Arterial 41 32 - 45 mm Hg 06/14/2025 10:34 AM [facility] pO2, Arterial 349 >80 mm Hg 06/14/2025 10:34 AM [facility] SO2, Arterial 99(H) 94 - 98 % 06/14/2025 10:34 AM [facility] Base Excess, Arterial -0.2 -2 - 3 mmol/L 06/14/2025 10:34 AM [facility] HCO3, Arterial 24.8 22 - 26 mmol/L 06/14/2025 10:34 AM [facility] Total Hemoglobin, Arterial, Whole Blood 10.9(L) 13.7 - 17.5 g/dL 06/14/2025 10:34 AM [facility] Hematocrit, Arterial 33.0(L) 40 - 51.0 % 06/14/2025 10:34 AM [facility] Sodium, Arterial 135(L) 136 - 145 mmol/L 06/14/2025 10:34 AM [facility] Potassium, Arterial 4.8 3.6 - 4.9 mmol/L 06/14/2025 10:34 AM [facility] Chloride, Whole Blood 103 97 - 107 mmol/L 06/14/2025 10:34 AM [facility] Glucose, Arterial 116(H) 74 - 99 mg/dL 06/14/2025 10:34 AM [facility] Ionized Calcium, Arterial 4.1(L) 4.6 - 5.1 mg/dL 06/14/2025 10:34 AM [facility] Lactate, Arterial 1.3 0.5 - 1.6 mmol/L 06/14/2025 10:34 AM [facility] Body Temperature 37.0 Celsius 06/14/2025 10:34 AM [facility] pH, Temp Corrected, Arterial 7.39 7.31 - 7.42 06/14/2025 10:34 AM [facility] pCO2, Temp Corrected, Arterial 41 32 - 45 mm Hg 06/14/2025 10:34 AM [facility] pO2, Temp Corrected, Arterial 349 >80 mm Hg 06/14/2025 10:34 AM [facility] Credit Collections Rep ID Vick Dupont 06/14/2025 10:34 AM [facility] Blood Whole blood specimen / Unknown 06/14/2025 10:33 AM EDT 06/14/2025 10:34 AM EDT us Phillip Clark MD LAB POINT OF CARE TE ST DOCKED DEVICE UNSOLICITED RESULTS Final Result Performing Organization Address City/[facility] Co de Phone Number [facility] [address] [place] [address] * (ABNORMAL) POCT ACT (06/14/2025 10:26 AM EDT) ACT+ (HIGH RANGE) >600(H) 68 - 600 Seconds 06/14/2025 10:40 AM [facility] Credit Collections Rep ID Vick Dupont 06/14/2025 10:40 AM EDT [facility] ACT Device ID [id number] 06/14/2025 10:40 AM [facility] Comment 06/14/2025 10:40 AM EDT [facility] Comment: ACT performed by staff [...] UNSOLICITED RESULTS Final Result Performing Organization Address [facility] Co de Phone Number [facility] [address] [place] [address] * Surgical Pathology Exam (06/14/2025 10:18 AM EDT) Case Report Surgical Pathology Case: [id number] Authorizing Provider: Phillip Clark MD Collected: 06/14/2025 1018 Ordering Location: [facility] A OPERATING ROOM Received: 06/14/2025 1413 Pathologist: Beth Lake MD Specimen: Heart, aortic valve leaflets 06/15/2025 11:44 AM EDT [facility] Final Diagnosis A. AORTIC VALVE LEAFLETS, REPLACEMENT: - FIBROSIS AND MYXOID DEGENERATION. 06/15/2025 11:44 AM EDT [facility] at 1144 EDT Clinical Information Severe aortic regurgitation [I35.1] 06/15/2025 11:44 AM EDT [facility] Gross Description A. AORTIC VALVE LEAFLETS Received fresh and placed in formalin labeled aortic valve leaflets are 2 white-montez soft cardiac leaflets ranging in size from 2.5-4.0 cm in greatest dimension. Car Unloader sections are submitted in cassette A1. Cold Time: 3h 55m April T Santos 06/15/2025 11:44 AM EDT [facility] Tissue Heart structure / Unknown 06/14/2025 10:18 AM EDT 06/14/2025 2:13 PM EDT Comment:Pre-op diagnosis: Severe aortic regurgitation [I35.1] us Phillip Clark MD LAB PATHOLOGY ORDERABLES Fin al Result [facility] [address] [place] [address] * (ABNORMAL) POCT arterial blood gas gem (06/14/2025 10:08 AM EDT) pH, Arterial 7.40 7.31 - 7.42 06/14/2025 10:17 AM [facility] pCO2, Arterial 40 32 - 45 mm Hg 06/14/2025 10:17 AM [facility] pO2, Arterial 410 >80 mm Hg 06/14/2025 10:17 AM EDT [facility] SO2, Arterial 100(H) 94 - 98 % 06/14/2025 10:17 AM EDT [facility] Base Excess, Arterial 0.0 -2 - 3 mmol/L 06/14/2025 10:17 AM EDT [facility] HCO3, Arterial 24.8 22 - 26 mmol/L 06/14/2025 10:17 AM EDT [facility] Total Hemoglobin, Arterial, Whole Blood 10.1(L) 13.7 - 17.5 g/dL 06/14/2025 10:17 AM EDT [facility] Hematocrit, Arterial 30.0(L) 40 - 51.0 % 06/14/2025 10:17 AM EDT [facility] Sodium, Arterial 133(L) 136 - 145 mmol/L 06/14/2025 10:17 AM EDT [facility] Potassium, Arterial 4.7 3.6 - 4.9 mmol/L 06/14/2025 10:17 AM EDT [facility] Chloride, Whole Blood 104 97 - 107 mmol/L 06/14/2025 10:17 AM EDT [facility] Glucose, Arterial 122(H) 74 - 99 mg/dL 06/14/2025 10:17 AM T [facility] Ionized Calcium, Arterial 3.9(L) 4.6 - 5.1 mg/dL 06/14/2025 10:17 AM EDT [facility] Lactate, Arterial 1.5 0.5 - 1.6 mmol/L 06/14/2025 10:17 AM EDT [facility] Body Temperature 37.0 Celsius 06/14/2025 10:17 AM T [facility] pH, Temp Corrected, Arterial 7.40 7.31 - 7.42 06/14/2025 10:17 AM EDT [facility] pCO2, Temp Corrected, Arterial 40 32 - 45 mm Hg 06/14/2025 10:17 AM EDT [facility] pO2, Temp Corrected, Arterial 410 >80 mm Hg 06/14/2025 10:17 AM EDT [facility] Credit Collections Rep ID Vick Dupont 06/14/2025 10:17 AM EDT [facility] Blood Whole blood specimen / Unknown 06/14/2025 10:08 AM EDT 06/14/2025 10:17 AM EDT us Phillip Clark MD LAB POINT OF CARE TE ST DOCKED DEVICE UNSOLICITED RESULTS Final Result [facility] [address] [place] [address] * (ABNORMAL) POCT ACT (06/14/2025 10:04 AM EDT) ACT+ (HIGH RANGE) >600(H) 68 - 600 Seconds 06/14/2025 10:19 AM EDT [facility] Credit Collections Rep ID Vick Dupont 06/14/2025 10:19 AM EDT [facility] ACT Device ID [id number] 06/14/2025 10:19 AM EDT [facility] Comment 06/14/2025 10:19 AM EDT [facility] Comment: ACT performed by staff [...] DEVICE UNSOLICITED RESULTS Final Result [facility] [address] [place] [address] LAB [address] [place] [address] * POCT ACT (06/14/2025 8:13 AM EDT) ACT+ (HIGH RANGE) 90 68 - 600 Seconds 06/14/2025 8:20 AM EDT [facility] Credit Collections Rep ID Kevin Hernandez 06/14/2025 8:20 AM EDT [facility] ACT Device ID [id number] 06/14/2025 8:20 AM EDT [facility] Comment 06/14/2025 8:20 AM EDT [facility] Comment: ACT performed by staff [...] ST DOCKED DEVICE UNSOLICITED RESULTS Final Result [facility] [address] LAB [address] [place] [address] * (ABNORMAL) POCT arterial blood gas gem (06/14/2025 8:13 AM EDT) pH, Arterial 7.38 7.31 - 7.42 06/14/2025 8:15 AM EDT [facility] pCO2, Arterial 40 32 - 45 mm Hg 06/14/2025 8:15 AM EDT [facility] pO2, Arterial 91 >80 mm Hg 06/14/2025 8:15 AM EDT [facility] SO2, Arterial 99(H) 94 - 98 % 06/14/2025 8:15 AM EDT [facility] Base Excess, Arterial -1.3 -2 - 3 mmol/L 06/14/2025 8:15 AM EDT [facility] HCO3, Arterial 23.7 22 - 26 mmol/L 06/14/2025 8:15 AM EDT [facility] Total Hemoglobin, Arterial, Whole Blood 14.5 13.7 - 17.5 g/dL 06/14/2025 8:15 AM EDT [facility] Hematocrit, Arterial 44.0 40 - 51.0 % 06/14/2025 8:15 AM EDT [facility] Sodium, Arterial 135(L) 136 - 145 mmol/L 06/14/2025 8:15 AM EDT [facility] Potassium, Arterial 4.1 3.6 - 4.9 mmol/L 06/14/2025 8:15 AM EDT [facility] Chloride, Whole Blood 103 97 - 107 mmol/L 06/14/2025 8:15 AM EDT [facility] Glucose, Arterial 95 74 - 99 mg/dL 06/14/2025 8:15 AM EDT [facility] Ionized Calcium, Arterial 4.7 4.6 - 5.1 mg/dL 06/14/2025 8:15 AM EDT [facility] Lactate, Arterial 0.8 0.5 - 1.6 mmol/L 06/14/2025 8:15 AM EDT [facility] Body Temperature 37.0 Celsius 06/14/2025 8:15 AM EDT [facility] pH, Temp Corrected, Arterial 7.38 7.31 - 7.42 06/14/2025 8:15 AM EDT [facility] pCO2, Temp Corrected, Arterial 40 32 - 45 mm Hg 06/14/2025 8:15 AM EDT [facility] pO2, Temp Corrected, Arterial 91 >80 mm Hg 06/14/2025 8:15 AM EDT [facility] Credit Collections Rep ID Lb Coreas 06/14/2025 8:15 AM EDT [facility] Blood Whole blood specimen / Unknown 06/14/2025 8:13 AM EDT 06/14/2025 8:15 AM EDT Phillip Clark MD LAB POINT OF CARE TE ST DOCKED DEVICE UNSOLICITED RESULTS Final Result Performing Organization Address City/[facility] Co de Phone Number HEALTHCARE [facility] [address] [place] [address] * Type and Screen (06/14/2025 6:27 AM [...] ORDERABL ES Final Result Performing Organization Address City/[facility] Co de Phone Number BLOOD BANK [address] [place] [address], * POCT glucose meter (06/14/2025 6:23 AM EDT) POCT Glucose 93 74 - 99 mg/dL 06/14/2025 6:24 AM EDT [facility] Comment:Accuracy of a [...] Comment 06/14/2025 6:24 AM EDT [facility] Credit Collections Rep ID Kassi Sinha 06/14/2025 6:24 AM EDT [facility] Device ID [id number] 06/14/2025 6:24 AM EDT [facility] Specimen Type POC Venous 06/14/2025 6:24 AM EDT [facility] Blood Venous blood specimen / Unknown 06/14/2025 6:23 AM EDT 06/14/2025 6:24 AM EDT Phillip Clark MD LAB POINT OF CARE TE ST DOCKED DEVICE UNSOLICITED RESULTS Final Result Performing Organization Address City/State/[facility] Co de Phone Number [facility] [address] [place] [address] documented in this encounter Visit Diagnoses Diagnosis Aortic valve regurgitation- Primary Aortic valve disorders Severe aortic regurgitation Other secondary hypertension S/P AVR Severe aortic regurgitation BMI 30.0-30.9,adult High cholesterol Pure hypercholesterolemia Diabetes Type II or unspecified type diabetes mellitus without mention of complication, not stated as uncontrolled Hypertension Unspecified essential hypertension CAD (coronary artery disease) Coronary atherosclerosis of unspecified type of vessel, [place] or graft History of coronary angioplasty with insertion of stent Ascending aortic aneurysm (CMS/HCC) Thoracic aneurysm without mention of rupture Benign prostatic hyperplasia Unspecified hyperplasia of prostate without urinary obstruction and other lower urinary tract symptoms (LUTS) Weaning from mechanically assisted ventilation initiated (CMS/HCC) Severe aortic regurgitation Coronary artery disease due to calcified coronary lesion History of coronary angioplasty with insertion of stent Left ventricular enlargement Cardiomegaly documented in this encounter Admitting Diagnoses Diagnosis [...] Given 06/20/2025 12:26 AM EDT 650 mg clopidogrel (Plavix) tablet 75 mg 75 mg, Oral, Daily, First dose on Beatris 06/16/25 at 1015, Until Discontinued, Routine Given 06/20/2025 8:55 AM EDT 75 mg Given 06/19/2025 8:48 AM EDT 75 mg Given 06/18/2025 8:21 AM EDT 75 mg docusate sodium (Colace) capsule 200 mg [...] on Beatris 06/16/25 at 1015, Until Discontinued, RoutineIndications:Type 2 Diabetes Mellitus Given 06/20/2025 8:54 AM EDT 10 mg Given 06/19/2025 8:47 AM EDT 10 mg Given 06/18/2025 8:22 AM EDT 10 mg ezetimibe (Zetia) tablet 10 mg 10 mg, Oral, Daily, First dose on Beatris 06/16/25 at 1015, Until Discontinued, Routine Given 06/20/2025 8:55 AM EDT 10 mg Given 06/19/2025 8:47 AM EDT 10 mg Given 06/18/2025 8:21 AM EDT 10 mg Apollo powder 1 packet 1 packet, Oral, 2 times daily, First dose on Fri06/15/25 at 2100, Until Discontinued, Routine Given 06/20/2025 8:55 AM EDT 1 packet Given 06/19/2025 8:18 PM EDT 1 packet Given 06/19/2025 9:13 AM EDT 1 packet losartan (Cozaar) tablet 25 mg 25 mg, Oral, 2 times daily, First dose on Beatris 06/16/25 at 1015, Until Discontinued, Routine Given 06/20/2025 8:5 4 AM EDT 25 mg Given 06/19/2025 8:17 PM EDT 25 mg Given 06/19/2025 8:46 AM EDT 25 mg melatonin tablet 9 mg 9 mg, Oral, [...] PM EDT 500 mg metoprolol tartrate (Lopressor) tablet 25 mg 25 mg, Oral, Every 6 hours, First dose (after last modification) on Fri06/19/25 at 1500, Until Discontinued, Routine Given 06/20/2025 8:55 AM EDT 25 mg Given 06/20/2025 4:00 AM EDT 25 mg Given 06/19/2025 8:17 PM EDT 25 mg ondansetron (Zofran) injection 4 mg 4 mg, [...] Given 06/18/2025 8:21 AM EDT 40 mg polyethylene glycol (Miralax) packet 17 g 17 g, Oral, Daily, First dose on Fri06/16/25 at 1115, Until Discontinued, Routine Given 06/20/2025 8:55 AM EDT 17 g Given 06/19/2025 8:46 AM EDT 17 g Given 06/18/2025 8:21 AM EDT 17 g rosuvastatin (Crestor) tablet 40 mg 40 mg, Oral, Nightly, First dose on Fri06/15/25 at 2100, Until Discontinued, Routine Given 06/19/2025 8:1 7 PM EDT 40 mg Given 06/18/2025 8:04 [...] and if any blood seen in tubing. thrombin (recombinant) (Recothrom) topical solution As needed, Starting on Fri06/14/25 at 0755, Until Fri06/14/25 at 1425, Routine Given 06/14/2025 7:55 AM EDT 10,000 Units vancomycin (Vancocin) vial for injection As needed, Starting on Fri06/14/25 at 0755, Until Fri06/14/25 at 1425, Routine, Intraprocedure Given 06/14/2025 7:55 AM EDT 1 g warfarin (Coumadin) tablet 4 mg 4 mg, Oral, Daily, First dose (after last modification) on 06/18/25 at 1700, Until Discontinued, Routine Given 06/19/2025 4:55 PM EDT 4 mg Given 06/18/2025 5:58 PM EDT 4 mg documented in this encounter Active and Recently Administered Medications Times are shown in EDT. Scheduled Medication Order 06/18/2025 06/19/2025 06/20/2025 acetaminophen (Tylenol) tablet 650 mg 650 mg, Oral, Every 4 hours scheduled, First dose (after last modification) on Fri06/14/25 at 2000, Until Discontinued, Routine 0451 (Given - Provider: Lori Molina RN)0821 (Given - Provider: Brittaney Dumas RN)1235 (Given - Provider: Brittaney Dumas RN)1609 (Given - Provider: Brittaney Dumas RN)2002 (Given - Provider: Lori Molina RN)2359 (Not Given - Provider: Lori Molina RN - Reason: Patient/family refused) 0300 (Given - Provider: Lori Molina RN)0847 (Given - Provider: Vicente Hussein RN)1202 (Given - Provider: Vicente Hussein RN)1513 (Given - Provider: Vicente Hussein RN)2016 (Given - Provider: Any Garcia RN) 0026 [...] RN) 0847 (Given - Provider: Vicente Hussein RN)2018 (Not Given - Provider: Any Garcia RN [...] Discontinued, Routine 0821 (Given - Provider: Brittaney Dumsa RN) ezetimibe (Zetia) tablet 10 mg 10 [...] RN)2016 (Given - Provider: Any Garcia, HESHAM) 0854 [...] Brittaney Dumas, HESHAM)1608 (Given - Provider: Brittaney Dumas, HESHAM)2003 (Given - Provider: Lori Molina RN) 0848 (Given - Provider: Vicente Hussein, HESHAM)1513 (Given - Provider: Vicente Hussein, HESHAM)2016 (Given - Provider: Any Garcia, HESHAM) 0854 (Given - Provider: Agustina Mello RN)1600 [...] add comment - Comment: dose given by retail shift supervisor rn @ [address] [place], [place] [address]Daiana instructed scientific writer to hold 0900 dose)2003 (Given - [...] Routine 1513 (Given - Provider: Vicente Hussein, HESHAM)2016 (Given - Provider: Any Garcia, HESHAM) 0400 (Given - Provider: Any Garcia RN)0855 (Given - Provider: Agustina Mello, HESHAM)1500 (Canceled Entry - Provider: Automatic Discharge Provider - Comment: Automatically canceled at discontinue of medication order) mupirocin (Bactroban) 2 % ointment 1 Application (COMPLETED) Each Nostril, 2 times daily, 10 doses, First dose on Fri06/14/25 at 2100, Last dose on Fri06/19/25 at 0900, Routine 0821 (Given - Provider: Brittaney Dumas RN)2003 (Given - Provider: Lori Molina RN) 0847 (Given - Provider: Vicente Hussein, HESHAM) pantoprazole [...] Molina RN)1236 (Given - Provider: Brittaney Dumas RN)2136 (Given - Provider: Lori Molina RN) polyethylene [...] 1 dose, On Fri06/18/25 at 1045, Routine 0956 (Given - Provider: [...] II-Outpatient)/On Unit(Inpatient) 0821 (Given - Provider: Brittaney Dumas, HESHAM)2002 (Given - Provider: Lori Molina RN) 0846 (Given - Provider: Vciente Hussein RN)2017 (Not Given - Provider: Any [...] RN) 0837 (Given - Provider: Vicente Hussein RN)1957 (Given - Provider: Any Garcia RN) 0855 (Given - Provider: Agustina Mello RN) warfarin (Coumadin) tablet 4 mg 4 mg, Oral, Daily, First dose (after last modification) on Fri06/18/25 at 1700, Until Discontinued, Routine 175 (Given - Provider: Brittaney Dumas, HESHAM) 1654 (Given - Provider: Vicente Hussein RN) PRN [...] Molina RN)0829 (Given - Provider: Brittaney Dumas, RN)2003 (Given - Provider: Lori Molina RN) 043 (Given - Provider: Lori Molina RN)100 (Given - Provider: Vicente Hussein RN)1703 (Given [...] NIPS 0140 (See Alternative - Provider: Lori Molina RN)0829 (See Alternative - Provider: Brittaney Dumas, HESHAM)2003 (See Alternative - Provider: Lori Molina RN) 043 (See Alternative - Provider: Lori Molina RN)100 (See Alternative - Provider: Vicente Hussein RN)1703 [...] documented as of this encounter Care Teams Carrier Driver Relationship Specialty [place] [id number] PCP - General 02/28/25 documented as of this encounter
--- OUTSIDE RECORDS SUMMARY | 2025-07-07 13:39 | XMS_ITS | Encounter Summary ---
Author Organization [facility] Address [address] [place] [address] Care Team Providers Care Manager Acute Name Role Phone Kamran Singh MD Primary Care Provider [phone] Encounter Details Date Type Department Care Team (Latest Contact Info) Description 07/07/2025 1:39 PM EST - 07/07/2025 11:59 PM EST Hospital Encounter [place] [facility] [address], [address] [place] [address] Ascending aortic aneurysm, unspecified whether ruptured (CMS/[facility]) Discharge Disposition: Home or Self [...] in a long-term (including now)? No 06/15/2025 [facility] Utilities Answer Date Recorded In the [...] PM EST Appointment Cardiac Imaging [address] [place] [address] 07/20/2026 1:40 PM EST Office Visit [place] [facility] [address], [facility] [address] [place] [address] Phillip Clark MD [address] [place] [address] documented as of this encounter Procedures Procedure [...] documented as of this encounter Care Teams Manager Acute Relationship Specialty Start Date End Date Kamran Singh MD [id number] PCP - General 02/28/25 documented as of this encounter
--- OUTSIDE RECORDS SUMMARY | 2025-07-07 14:40 | XMS_ITS | Encounter Summary ---
Author Organization [facility] Address [address] [place] [id number] Care Team Providers Care Bariatric Nurse Name Role Phone Kamran Singh MD Primary Care Provider [phone] Reason for Referral * Imaging (Routine) - Pending Review Specialty Diagnoses / Procedures Referred By Nathalia t Referred To Contact Cardiology Diagnoses Ascending aortic aneurysm, unspecified whether ruptured (CMS/HCC) Procedures Echo, Adult Transthoracic Complete Phillip Clark MD [address] [address] Phone: tel: fax: Referral ID Status Reason Start Date Expiration Date Visits Requested Visits Authorized [id number] Pending Review Perform Procedure 07/07/2025 01/06/2027 1 1 Encounter Details Date Type Department Care Team (Late st Contact Info) Description 07/07/2025 2:40 PM EST Office Visit [facility] [address] [place], [address] [address] Phillip Clark MD [address] [address] Ascending aortic aneurysm, unspecified whether [...] in a assisted (including now)? No 06/15/2025 [facility] Utilities Answer Date Recorded In the past 12 months has th e electric, gas, oil, or water [employer] threatened to shut off services in your [...] sensation and reflexes and motor intact Skin: [place], warm, well perfused Incision clean and healing [...] well overall. Has already reestablished care with yarn carrier. Planning to start cardiac rehab in next [...] PM EST Appointment Cardiac Imaging [address] [place] [address] 07/20/2026 1:40 PM EST Office Visit [facility] [address] [place], [address] [place] [address] Phillip Clark MD [address] [place] [address] Scheduled Orders Name Type Priority Associated Diagnoses [...] LAB COAGULATION METHOD 07/07/2025 3:17 PM EST [facility] INR 1.7(H) 0.9 - 1.1 LAB COAGULATION METHOD 07/07/2025 3:17 PM EST [facility] Blood Venous blood specimen / Unknown Venipuncture / Unknown 07/07/2025 1:35 PM EST 07/07/2025 1:35 PM EST Narrative [facility] - 07/07/2025 3:17 PM EST OPTIMAL INR RANGES FOR PATIENT ON ORAL ANTICOAGULANT THERAPY Prevention of venous thromboembolism INR 2.0 to 3.0 In patients with heart disease: Atrial fibrillation INR 2.0 to 3.0 Valvular heart disease INR 2.0 to 3.0 Tissue heart valves INR 2.0 to 3.0 Mechanical prosthetic valves INR 2.5 to 3.5 Prevention of recurrent IN INR 2.5 to 3.5 us Phillip Clark MD LAB BLOOD ORDERABLES Final R esult [facility] [address] [place] [address] * Basic Metabolic Panel, Plasma (07/07/2025 1:35 PM EST) Glucose, Plasma 87 74 - 99 mg/dL 07/07/2025 3:00 PM EST [facility] BUN, Plasma 21 8 - 23 mg/dL 07/07/2025 3:00 PM EST [facility] Creatinine, Plasma 0.99 0.70 - 1.20 mg/dL 07/07/2025 3:00 PM EST [facility] BUN/Creatinine Ratio 21 07/07/2025 3:00 PM EST [facility] Sodium, Plasma 136 136 - 145 mmol/L 07/07/2025 3:00 PM EST [facility] Potassium, Plasma 4.7 3.6 - 4.9 mmol/L 07/07/2025 3:00 PM EST [facility] Chloride, Plasma 99 97 - 107 mmol/L 07/07/2025 3:00 PM EST [facility] CO2, Plasma 26 22 - 29 mmol/L 07/07/2025 3:00 PM EST [facility] Anion Gap 11 6 - 16 mmol/L 07/07/2025 3:00 PM EST [facility] Total Calcium, Plasma 9.4 8.9 - 10.2 mg/dL 07/07/2025 3:00 PM EST [facility] eGFRcr 82.5 mL/min/1.7 3m*2 07/07/2025 3:00 PM EST [facility] Comment:Reported eGFRcr in m L/min/1.73m2 is based the CKD-EPI 2020 equation that does not use a race coefficient. Blood Venous blood specimen / Unknown Venipuncture / Unknown 07/07/2025 1:35 PM EST 07/07/2025 1:35 PM EST us Phillip Clark MD LAB BLOOD ORDERABLES Final R esult [facility] [address] [place] [address] * (ABNORMAL) CBC W/O Differential (07/07/2025 1:35 PM EST) WBC Count 6.93 3.70 - 10.30 10*3/uL LAB HEMATOLOGY METHOD 07/07/2025 2:47 PM EST [facility] RBC Count 4.43(L) 4.60 - 6.10 10*6/uL LAB HEMATOLOGY METHOD 07/07/2025 2:47 PM EST [facility] HGB 12.1(L) 13.7 - 17.5 g/dL LAB HEMATOLOGY METHOD 07/07/2025 2:47 PM EST [facility] HCT 38.1(L) 40.0 - 51.0 % LAB HEMATOLOGY METHOD 07/07/2025 2:47 PM EST [facility] Platelet Count 391(H) 155 - 369 10*3/uL LAB HEMATOLOGY METHOD 07/07/2025 2:47 PM EST [facility] MCV 86 79 - 98 fL LAB HEMATOLOGY METHOD 07/07/2025 2:47 PM EST [facility] MCH 27.3 26.0 - 32.0 pg LAB HEMATOLOGY METHOD 07/07/2025 2:47 PM EST [facility] MCHC 31.8 30.7 - 35.5 g/dL LAB HEMATOLOGY METHOD 07/07/2025 2:47 PM EST [facility] RDW 15.2(H) 11.5 - 14.5 % LAB HEMATOLOGY METHOD 07/07/2025 2:47 PM EST [facility] MPV 9.1 8.8 - 12.5 fL LAB HEMATOLOGY METHOD 07/07/2025 2:47 PM EST [facility] nRBC 0.0 <=0.0 per 100 WBCs LAB HEMATOLOGY METHOD 07/07/2025 2:47 PM EST [facility] Blood Venous blood specimen / Unknown Venipuncture / Unknown 07/07/2025 1:35 PM EST 07/07/2025 1:35 PM EST us Phillip Clark MD LAB BLOOD ORDERABLES Final R esult [facility] [address] [place] [address] documented in this encounter Visit Diagnoses Diagnosis [...] documented as of this encounter Care Teams Bariatric Nurse Relationship Specialty [place] [id number] PCP - General 02/28/25 documented as of this encounter
--- OUTSIDE RECORDS SUMMARY | 2025-08-01 10:46 | XMS_ITS | Encounter Summary ---
Author Organization [facility] Address [address] [place] [id number] Care Team Providers Care Slide Machine Tender Name Role Phone Kamran Singh MD Primary Care Provider [phone] Encounter Details Date Type Department Care Team (Latest Contact Info) Description 07/07/2025 Travel Social History Tobacco Use Types Packs/Day [...] any time in the past 12 m onths, were you homeless or living in a intermediate (including now)? No 06/15/2025 [facility] [...] PM EST Appointment Cardiac Imaging [address] [place] [address] 07/20/2026 1:40 PM EST Office Visit [place] [facility] [address], [address] [place] [address] Phillip Clark MD [address] [address] documented as of this encounter Visit Diagnoses Not on filedocumented in this encounter Additional Health Concerns Assessment Noted Time A fall risk assessment has been complete d for the patient 06/09/2025 12:15 PM EDT A Body Mass Index follow-up plan has been documented for the patient 07/10/2025 11:44 AM EST documented as of this encounter Care Teams Slide Machine Tender Relationship Specialty Start Date End Date Kamran Singh MD [phone] PCP - General 02/28/25 documented as of this encounter
--- OUTSIDE RECORDS SUMMARY | 2025-08-01 10:46 | XMS_ITS | Encounter Summary ---
Author Organization [facility] Address [address] [place] [address] Care Team Providers Care Sat Act Instructor Name Role Phone Kamran Singh MD Primary Care Provider [phone] Encounter Details Date Type Department Care Team [...] PM EST Appointment Cardiac Imaging [address] [place] [address] 07/20/2026 1:40 PM EST Office Visit [place] [facility] [address], [address] [place] [address] Phillip Clark MD [address] [place] [address] documented as of this encounter Visit Diagnoses Not on filedocumented in this encounter Additional Health Concerns Assessment Noted Time A fall risk assessment has been complete d for the patient 06/09/2025 12:15 PM EDT A Body Mass Index follow-up plan has been documented for the patient 06/09/2025 2:00 PM EDT documented as of this encounter Care Teams Sat Act Instructor Relationship Specialty [place] [id number] PCP - General 02/28/25 documented as of this encounter
--- OUTSIDE RECORDS SUMMARY | 2025-08-01 10:46 | XMS_ITS | Encounter Summary ---
Author Organization [facility] Address [address] [place] [id number] Care Team Providers Care Fuel Truck Driver Name Role Phone Kamran Singh MD Primary Care Provider [phone] Encounter Details Date Type Department Care Team [...] a skilled nursing (including now)? No 06/15/2025 [facility] Utilities Answer Date Recorded In the [...] PM EST Appointment Cardiac Imaging [address] [place] [address] 07/20/2026 1:40 PM EST Office Visit [place] [facility] [address], [address] [place] [address] Phillip Clark MD [address] [place] [address] documented as of this encounter Visit Diagnoses Not on filedocumented in this encounter Additional Health Concerns Assessment Noted Time A fall risk assessment has been complete d for the patient 06/09/2025 12:15 PM EDT A Body Mass Index follow-up plan has been documented for the patient 06/20/2025 10:30 AM EDT documented as of this encounter Care Teams Fuel Truck Driver Relationship Specialty [place] [id number] PCP - General 02/28/25 documented as of this encounter
--- OUTSIDE RECORDS SUMMARY | 2025-08-01 10:46 | XMS_ITS | Encounter Summary ---
Author Organization [facility] Address [address] [place] [address] Care Team Providers Care Electrical Project Manager Name Role Phone Kamran Singh MD Primary Care Provider [phone] Encounter Details Date Type Department Care Team [...] PM EST Appointment Cardiac Imaging [address] [place] [address] 07/20/2026 1:40 PM EST Office Visit [place] [facility] [address], [address] [place] [address] Phillip Clark MD [address] [place] [address] documented as of this encounter Visit Diagnoses Not on filedocumented in this encounter Additional Health Concerns Assessment Noted Time A fall risk assessment has been complete d for the patient 05/05/2025 9:58 AM EDT A Body Mass Index follow-up plan has been documented for the patient 05/05/2025 10:51 AM EDT documented as of this encounter Care Teams Electrical Project Manager Relationship Specialty [place] [id number] PCP - General 02/28/25 documented as of this encounter
--- OUTSIDE RECORDS SUMMARY | 2025-08-01 10:46 | XMS_ITS | Encounter Summary ---
Author Organization [facility] Address [address] [place] [id number] Care Team Providers Care Miller Kiln Dried Salt Name Role Phone Kamran Singh MD Primary Care Provider [phone] Encounter Details Date Type Department Care Team [...] a group home (including now)? No 06/15/2025 [facility] Utilities Answer Date Recorded In [...] PM EST Appointment Cardiac Imaging [address] [place] [address] 07/20/2026 1:40 PM EST Office Visit [place] [facility] [address], [address] [place] [address] Phillip Clark MD [address] [place] [address] documented as of this encounter Visit Diagnoses Not on filedocumented in this encounter Additional Health Concerns Assessment Noted Time A fall risk assessment has been complete d for the patient 06/09/2025 12:15 PM EDT A Body Mass Index follow-up plan has been documented for the patient 06/20/2025 10:30 AM EDT documented as of this encounter Care Teams Miller Kiln Dried Salt Relationship Specialty [place] [id number] PCP - General 02/28/25 documented as of this encounter
--- OUTSIDE RECORDS SUMMARY | 2025-08-01 10:46 | XMS_ITS | Encounter Summary ---
Author Organization [facility] Address [address] [place] [address] Care Team Providers Care Transfer Car Operator Drier Name Role Phone Kamran Singh MD Primary Care Provider [phone] Encounter Details Date Type Department Care Team [...] PM EST Appointment Cardiac Imaging [address] [place] [address] 07/20/2026 1:40 PM EST Office Visit [place] [facility] [address], [facility] [address] [place] [address] Phillip Clark MD [address] [place] [address] documented as of this encounter Visit Diagnoses Not on filedocumented in this encounter Additional Health Concerns Assessment Noted Time A fall risk assessment has been complete d for the patient 05/05/2025 9:58 AM EDT A Body Mass Index follow-up plan has been documented for the patient 05/05/2025 10:51 AM EDT documented as of this encounter Care Teams Transfer Car Operator Drier Relationship Specialty [place] [id number] PCP - General 02/28/25 documented as of this encounter
--- OUTSIDE RECORDS SUMMARY | 2025-08-01 10:46 | XMS_ITS | Encounter Summary ---
Author Organization [facility] Address [address] [place] [id number] Care Team Providers Care Respiratory Services Manager Name Role Phone Kamran Singh MD Primary Care Provider [phone] Encounter Details Date Type Department Care Team [...] in a mcc (including now)? No 06/15/2025 [facility] Utilities Answer Date Recorded In the [...] PM EST Appointment Cardiac Imaging [address] [place] [address] 07/20/2026 1:40 PM EST Office Visit [place] [facility] [address], [address] [place] [address] Phillip Clark MD [address] [place] [address] documented as of this encounter Visit Diagnoses Not on filedocumented in this encounter Additional Health Concerns Assessment Noted Time A fall risk assessment has been complete d for the patient 06/09/2025 12:15 PM EDT A Body Mass Index follow-up plan has been documented for the patient 06/20/2025 10:30 AM EDT documented as of this encounter Care Teams Respiratory Services Manager Relationship Specialty [place] [id number] PCP - General 02/28/25 documented as of this encounter
--- OUTSIDE RECORDS SUMMARY | 2025-08-01 10:46 | XMS_ITS | Encounter Summary ---
Author Organization [facility] Address [address] [place] [id number] Care Team Providers Care Environmental Law Professor Name Role Phone Kamran Singh MD Primary Care Provider [phone] Encounter Details Date Type Department Care Team [...] in a mcc (including now)? No 06/15/2025 [facility] Utilities Answer Date Recorded In the [...] PM EST Appointment Cardiac Imaging [address] [place] [address] 07/20/2026 1:40 PM EST Office Visit [place] [facility] [address], [address] [place] [address] Phillip Clark MD [address] [address] documented as of this encounter Visit Diagnoses Not on filedocumented in this encounter Additional Health Concerns Assessment Noted Time A fall risk assessment has been complete d for the patient 06/09/2025 12:15 PM EDT A Body Mass Index follow-up plan has been documented for the patient 06/20/2025 10:30 AM EDT documented as of this encounter Care Teams Environmental Law Professor Relationship Specialty Start Date End Date Kamran Singh MD [id number] PCP - General 02/28/25 documented as of this encounter
--- OUTSIDE RECORDS SUMMARY | 2025-08-01 10:46 | XMS_ITS | Encounter Summary ---
Author Organization [facility] Address [address] [place] [address] Care Team Providers Care American Indian Policy Specialist Name Role Phone Kamran Singh MD Primary Care Provider [phone] Encounter Details Date Type Department Care Team (Late st Contact Info) Description 01/04/2025 Orders Only External Location [address] [place] [address] Provider, External Social History Tobacco Use Types [...] PM EST Appointment Cardiac Imaging [address] [place] [address] 07/20/2026 1:40 PM EST Office Visit [place] [facility] [address], [address] [address] Phillip Clrak MD [address] [place] [address] documented as of this encounter Procedures Procedure [...] on filedocumented in this encounter Care Teams American Indian Policy Specialist Relationship Specialty [place] [id number] PCP - General 02/28/25 documented as of this encounter
--- OUTSIDE RECORDS SUMMARY | 2025-08-01 10:46 | XMS_ITS | Encounter Summary ---
Author Organization [facility] Address [address] [place] [id number] Care Team Providers Care Ribbing Machine Operator Name Role Phone Kamran Singh MD Primary Care Provider [phone] Encounter Details Date Type Department Care Team [...] in a custodial (including now)? No 06/15/2025 [facility] Utilities Answer Date Recorded In [...] PM EST Appointment Cardiac Imaging [address] [place] [address] 07/20/2026 1:40 PM EST Office Visit [place] [facility] [address], [address] [place] [address] Phillip Clark MD [address] [address] documented as of this encounter Visit Diagnoses Not on filedocumented in this encounter Additional Health Concerns Assessment Noted Time A fall risk assessment has been complete d for the patient 06/09/2025 12:15 PM EDT A Body Mass Index follow-up plan has been documented for the patient 06/20/2025 10:30 AM EDT documented as of this encounter Care Teams Ribbing Machine Operator Relationship Specialty Start Date End Date Kamran Singh MD [id number] PCP - General 02/28/25 documented as of this encounter
--- OUTSIDE RECORDS SUMMARY | 2025-08-01 10:46 | XMS_ITS | Encounter Summary ---
Author Organization [facility] Address [address] [place] [address] Care Team Providers Care Vertical Mill Operator Name Role Phone Kamran Singh MD Primary Care Provider [phone] Encounter Details Date Type Department Care Team (Late st Contact Info) Description 01/28/2025 Orders Only External Location [address] [place] [address] Provider, External Social History Tobacco Use Types [...] PM EST Appointment Cardiac Imaging [address] [place] [address] 07/20/2026 1:40 PM EST Office Visit [place] [facility] [address], [address] [address] Phillip Clark MD [address] [place] [address] documented as of this encounter Procedures Procedure [...] on filedocumented in this encounter Care Teams Vertical Mill Operator Relationship Specialty Start Date End Date Kamran Singh MD [id number] PCP - General 02/28/25 documented as of this encounter
--- OUTSIDE RECORDS SUMMARY | 2025-08-01 10:47 | XMS_ITS | Encounter Summary ---
Author Organization [facility] Address [address] [place] [id number] Care Team Providers Care Digital Intern Name Role Phone Kamran Singh MD Primary Care Provider [phone] Encounter Details Date Type Department Care Team [...] in a assisted (including now)? No 06/15/2025 [facility] Utilities Answer Date Recorded In the [...] PM EST Appointment Cardiac Imaging [address] [place] [address] 07/20/2026 1:40 PM EST Office Visit [place] [facility] [address], [address] [place] [address] Phillip Clark MD [address] [address] documented as of this encounter Visit Diagnoses Not on filedocumented in this encounter Additional Health Concerns Assessment Noted Time A fall risk assessment has been complete d for the patient 06/09/2025 12:15 PM EDT A Body Mass Index follow-up plan has been documented for the patient 06/20/2025 10:30 AM EDT documented as of this encounter Care Teams Digital Intern Relationship Specialty Start Date End Date Kamran Singh MD [id number] PCP - General 02/28/25 documented as of this encounter
--- OUTSIDE RECORDS SUMMARY | 2025-08-01 10:47 | XMS_ITS | Encounter Summary ---
Author Organization [facility] Address [address] [place] [id number] Care Team Providers Care Ends Breakage Clerk Name Role Phone Kamran Singh MD Primary Care Provider [phone] Encounter Details Date Type Department Care Team [...] in a halfway (including now)? No 06/15/2025 [facility] Utilities Answer Date Recorded In the past [...] PM EST Appointment Cardiac Imaging [address] [facility] [place] [address] 07/20/2026 1:40 PM EST Office Visit [place] [facility] [address], [address] [place] [address] Phillip Clark MD [address] [place] [address] documented as of this encounter Visit Diagnoses Not on filedocumented in this encounter Additional Health Concerns Assessment Noted Time A fall risk assessment has been complete d for the patient 06/09/2025 12:15 PM EDT A Body Mass Index follow-up plan has been documented for the patient 06/20/2025 10:30 AM EDT documented as of this encounter Care Teams Ends Breakage Clerk Relationship Specialty [place] [id number] PCP - General 02/28/25 documented as of this encounter
--- OUTSIDE RECORDS SUMMARY | 2025-08-01 10:47 | XMS_ITS | Encounter Summary ---
Author Organization [facility] Address [address] [place] [id number] Care Team Providers Care Profiling Machine Operator Name Role Phone Kamran Singh MD Primary Care Provider [phone] Encounter Details Date Type Department Care Team [...] in a custodial (including now)? No 06/15/2025 [facility] [...] PM EST Appointment Cardiac Imaging [address] [place] [address] 07/20/2026 1:40 PM EST Office Visit [place] [facility] [address], [address] [place] [address] Phillip Clark MD [address] [address] documented as of this encounter Visit Diagnoses Not on filedocumented in this encounter Additional Health Concerns Assessment Noted Time A fall risk assessment has been complete d for the patient 06/09/2025 12:15 PM EDT A Body Mass Index follow-up plan has been documented for the patient 06/20/2025 10:30 AM EDT documented as of this encounter Care Teams Profiling Machine Operator Relationship Specialty Start Date End Date Kamran Singh MD [id number] PCP - General 02/28/25 documented as of this encounter
--- OUTSIDE RECORDS SUMMARY | 2025-08-01 10:49 | XMS_ITS | Encounter Summary ---
Author Organization [facility] Address [address] [place] [id number] Care Team Providers Care Vice President & General Manager [employer] Name Role Phone Kamran Singh MD Primary Care Provider [phone] Encounter Details Date Type Department Care Team [...] a long term (including now)? No 06/15/2025 [facility] Utilities Answer Date Recorded In [...] PM EST Appointment Cardiac Imaging [address] [place] [address] 07/20/2026 1:40 PM EST Office Visit [place] [facility] [address], [address] [place] [address] Phillip Clark MD [address] [address] documented as of this encounter Visit Diagnoses Not on filedocumented in this encounter Additional Health Concerns Assessment Noted Time A fall risk assessment has been complete d for the patient 06/09/2025 12:15 PM EDT A Body Mass Index follow-up plan has been documented for the patient 06/20/2025 10:30 AM EDT documented as of this encounter Care Teams Vice President & General Manager [employer] Relationship Specialty Start Date End Date Kamran Singh MD [id number] PCP - General 02/28/25 documented as of this encounter
--- OUTSIDE RECORDS SUMMARY | 2025-08-01 10:49 | XMS_ITS | Clinical Summary ---
Author Organization [facility] Address [address] [place] [id number] Care Team Providers Care Rn Examiner Name Role Phone Kamran Singh MD Primary Care Provider [phone] Allergies Active Allergy Reactions Criticality Noted Date Comments Lisinopril Cough Low 03/30/2025 Seafood Hives Medium 03/10/2025 Medications Repatha SureClick 140 MG/ML solution auto-injector autoinjector Inject 1 mL under the skin every 14 days. 02/27/20 25 Active omeprazole (PriLOSEC) [address] capsule Take 1 capsule by mouth daily as needed. Do not crush or chew. Active acetaminophen (Tylenol) 325 MG tablet Take 2 tablets by mouth every 4 hours as needed for pain, headaches or fever. 100 tablet 06/20/20 25 Active empagliflozin (Jardiance) 10 MG Take 1 tablet by mouth daily. 30 tablet 2 06/20/20 25 026 Active ezetimibe (Zetia) 10 MG tablet Take 1 tablet by mouth daily. 30 tablet 2 06/20/20 25 026 Active losartan (Cozaar) 50 MG tablet Take 0.5 tablets by mouth 2 times a day. 60 tablet 2 06/20/20 25 026 Active rosuvastatin (Crestor) 40 MG tablet Take 1 tablet by mouth daily. 30 tablet 2 06/20/20 25 026 Active Additional Information Patient not taking.Reported on 07/07/2025 methocarbamol (Robaxin) 500 MG tablet Take 1 tablet by mouth 4 times a day as needed for muscle spasms. 40 tablet 06/20/20 25 Active Additional Information Patient not taking.Reported on 07/07/2025 metoprolol tartrate (Lopressor) 50 MG tablet Take 1 tablet by mouth 2 times a day. 60 tablet 2 06/20/20 25 026 Active oxyCODONE (Roxicodone) 5 MG immediate release tablet Take 1 tablet by mouth every 4 hours as needed for moderate pain. 18 tablet 06/20/20 25 Active warfarin (Coumadin) 2 MG tablet Take 2 tablets by mouth daily. 4mg daily until you get your INR drawn on Jun 22, then as directed. 60 tablet 11 06/20/20 25 Active furosemide (Lasix) 40 MG tablet Take 1 tablet by mouth daily. Take Lasix (furosemide) 40mg once daily for 3 days only; to be taken with potassium 20mEq once daily for 3 days only. 3 tablet 06/20/20 Active spironolactone (Aldactone) 25 MG tablet Take 1 tablet by mouth daily. holding 06/20/20 Active clopidogrel (Plavix) 75 MG tablet Take 1 tablet by mouth daily. 30 tablet 06/20/20 25 025 naloxone (Narcan) 4 mg/0.1 mL nasal spray 1. Give 1 spray in nostril for no/slow breathing or cannot wake after opioid use 2. Call 911 3. Repeat in other nostril if symptoms continue 1 each 06/20/20 25 025 Discontinued Active Problems Problem Noted Date Diagnosed [...] Encounters Date Type Department Care Team Description 07/07/2025 2:40 PM EST Office Visit [facility] [address], [address] [place] [address] Phillip Clark MD Ascending aortic aneurysm, unspecified whether ruptured (CMS/HCC) (Primary Dx) 07/07/2025 1:39 PM EST - 07/07/2025 11:59 PM EST Hospital Encounter [facility] [address], [address] [place] [address] Ascending aortic aneurysm, unspecified whether ruptured (CMS/HCC) Discharge Disposition: Home or Self Care 07/07/2025 Travel 07/04/2025 Travel 06/30/2025 Travel 06/20/2025 Travel 06/19/2025 Travel 06/18/2025 Travel 06/17/2025 Travel 06/16/2025 Travel 06/15/2025 Travel 06/14/2025 7:45 AM EDT - 06/14/2025 8:15 PM EDT Surgery [facility] [address] [place] [address] Phillip Clark MD Aortic valve replacement [17509 (CPT )] 06/14/2025 7:45 AM EDT Anesthesia Event [facility] [address] [place] [id number] Jean Claude Staley MD Burns, Jonathon R, DO 06/14/2025 5:18 AM EDT - 06/20/2025 2:25 PM EDT Hospital Encounter [facility] [address] [place] [address] Phillip Clark MD Other secondary hypertension (Primary Dx); Severe aortic regurgitation; S/P AVR Discharge Disposition: Home or Self Care 06/14/2025 Travel 06/09/2025 1:42 PM EDT - 06/09/2025 11:59 PM EDT Hospital Encounter [facility] [address] [place] [address] Severe aortic regurgitation Discharge Disposition: Home or Self Care 06/09/2025 12:20 PM EDT Office Visit [facility] [address], [address] [place] [address] Phillip Clark MD Severe aortic regurgitation (Primary Dx) 06/09/2025 Travel 06/07/2025 8:30 AM EDT Pre-Admission Testing [facility] [address] [place] [address] 06/07/2025 Travel 06/02/2025 Travel 05/05/2025 10:20 AM EDT Office Visit [facility] [address], [address] [place] [address] Phillip Clark MD Severe aortic regurgitation (Primary Dx) 05/05/2025 Travel from Last 3 Months Family History [...] any time in the past 12 m [facility], were you homeless or living in a long-term (including now)? No 06/15/2025 [facility] Utilities Answer Date Recorded In the past 12 months has th e [employer], gas, oil, or water [employer] threatened to shut off services in your [...] Pulse 86 07/07/2025 2:32 PM EST Temperature 37.4 C (99.3 F) 06/20/2025 8:00 AM EDT Respiratory Rate 18 06/20/2025 9:00 AM EDT Oxygen Saturation 99% 07/07/2025 2:21 PM EST Inhaled Oxygen Concentration - - Weight 83.9 kg (184 lb 15.5 oz) 07/07/2025 2:21 PM EST Height 170.2 cm (5' 7 ) 06/14/2025 6:20 AM EDT Body Mass Index 28.97 06/14/2025 6:20 AM EDT Plan of Treatment Upcoming Encounters Date Type Department Care Team (Late st Contact Info) Description 07/20/2026 12:00 PM EST Appointment Cardiac Imaging [address] [place] [address] 07/20/2026 1:40 PM EST Office Visit [facility] [address], [address] [place] [address] Phillip Clark MD [address] [place] [address] Health Maintenance Due Date Last Done Comments [...] - Risk 60-74 years 1-dose series) 2015 [id number]-51 Vaccine ( season) 2025 06/22/2022, 01/19/2022, 07/12/2021, Additional history exists [facility]-Influenza Vaccine (#1) 2025 [facility]-Diabetes: Hemoglobin A1C 12/07/2025 06/09/2025 [facility]- SDOH Screenings 12/14/2025 [facility]-Adult SDOH Screenings 12/14/2025 06/15/2025 [facility]-Depression Screening 03/10/2026 03/10/2025 [facility]-Obesity Intervention Completed 025, 06/09/2025, 05/05/2025, Additional history exists HPV Vaccines Aged [...] this topic Medical Devices Implanted Type Area Curling Machine Operator Device Identifier Shelf Expiration Date Model / Serial / Lot Graft Ptch [id number] [place] - [id number] Implanted:Qty: 1 on 06/14/2025 by Phillip Clark MD at [facility] N/A: Heart [employer] Peripherial [id number] / / Valve Atrial 25mm Rotatabl Cuf Std Ptfe - [id number] - [id number] Implanted:Qty: 1 on 06/14/2025 by Phillip Clark MD at [facility] N/A: [id number] 03/28/2030 [id number] / [id number] / [id number] Procedures Procedure Name Priority Date/Time Associated Diagnosis Comments XR CHEST 2 VIEWS Routine 07/07/2025 1:44 PM EST Ascending aortic aneurysm, unspecified whether ruptured (CMS/HCC) CBC W/O DIFFERENTIAL Routine 07/07/2025 1:35 PM EST Ascending aortic aneurysm, unspecified whether ruptured (CMS/HCC) BASIC METABOLIC PANEL, PLASMA Routine 07/07/2025 1:35 PM EST Ascending aortic aneurysm, unspecified whether ruptured (CMS/HCC) PROTHROMBIN TIME(PT) / INR Routine 07/07/2025 1:35 PM EST Ascending aortic aneurysm, unspecified whether ruptured (CMS/HCC) XR CHEST 2 VIEWS Routine 06/20/2025 9:14 [...] PANEL, PLASMA Routine 06/16/2025 5:35 PM EDT [facility], E/M 30-74 MINUTES Routine 06/16/2025 [...] PEP THERAPY Routine 06/15/2025 12:00 PM EDT [facility], E/M 30-74 MINUTES Routine 06/15/2025 [...] 1 VIEW Routine 06/15/2025 2:53 AM EDT [facility], ADDL 30 MIN Routine 06/15/2025 12:21 AM EDT Other secondary hypertension [facility], ADDL 30 MIN Routine 06/15/2025 [...] PANEL, ARTERIAL Routine 06/14/2025 6:47 PM EDT [facility], E/M 30-74 MINUTES Routine 06/14/2025 [...] IMAGING PLACEHOLDER Routine 06/14/2025 8:32 AM EDT VA INSERT/PLACE FLOW DIRECT CATH Routine 06/14/2025 8:32 AM EDT ANESTHESIA ULTRASOUND GUIDED Routine 06/14/2025 8:32 AM EDT PB ANESTHESIA NON-TIMED PROCEDURE PLACEHOLDER Routine 06/14/2025 8:32 AM EDT VA AN CENTRAL LINE DOUBLE LUMEN Routine 06/14/2025 8:32 AM EDT PB ANESTHESIA PLACEHOLDER Routine 06/14/2025 8:16 AM EDT VA AN ELECTIVE ENDOTRACHEAL AIRWAY Routine 06/14/2025 8:16 AM EDT POCT ACT UNSOLICITED RESULTS Routine 06/14/2025 8:13 AM EDT POCT ARTERIAL BLOOD GAS GEM UNSOLICITED RESULTS Routine 06/14/2025 8:13 AM EDT PB ANESTHESIA NON-TIMED PROCEDURE PLACEHOLDER Routine 06/14/2025 8:08 AM EDT VA -AORT GRF W/CARD BYP F/AORTIC DISSECTION 06/14/2025 [...] 06/09/2025 1:39 PM EDT Severe aortic regurgitation from Last 3 Months Results * XR Chest 2 Views (07/07/2025 1:44 PM EST) Only the most recent of3 resultswithin the time period is included. Anatomical [...] (ABNORMAL) Prothrombin Time/INR (07/07/2025 1:35 PM EST) Only the most recent of9 resultswithin the time period is included. Prothrombin Time 20.1(H) 12.0 - 14.3 sec [...] INR 2.5 to 3.[address] INR 2.5 to 3.5 us Phillip Clark MD LAB BLOOD ORDERABLES Final R esult [facility] [address] [place] [address] * (ABNORMAL) CBC W/O Differential (07/07/2025 1:35 PM EST) Only the most recent of10 resultswithin the time period is included. WBC Count 6.93 3.70 - 10.30 10*3/uL [...] R esult [facility] [address] [place] [address] * Basic Metabolic Panel, Plasma (07/07/2025 1:35 PM EST) Only the most recent of10 resultswithin the time period is included. Glucose, Plasma 87 74 - 99 mg/dL [...] 1:35 PM EST 07/07/2025 1:35 PM EST Phillip Clark MD LAB BLOOD ORDERABLES Final R esult Performing Organization Address City/[facility]/ZIP Co de Phone Number [facility] [address] [place] [address] * Phosphorus (06/20/2025 1:52 AM EDT) Only the most recent of8 resultswithin the time period is included. Phosphorus, Plasma 2.8 2.5 - 4.5 mg/dL 06/20/2025 2:[address] [facility] Blood Venous blood specimen / Unknown Venipuncture / Unknown 06/20/2025 1:52 AM EDT 06/20/2025 1:59 AM EDT Phillip Clark MD LAB BLOOD ORDERABLES Final R esult Performing Organization Address City/[facility] Co de Phone Number [facility] [address] [place] [address] * Magnesium (06/20/2025 1:52 AM EDT) Only the most recent of10 resultswithin the time period is included. Magnesium, Plasma 2.2 1.9 - 2.4 mg/dL 06/20/2025 2:23 AM EDT [facility] Blood Venous blood specimen / Unknown Venipuncture / Unknown 06/20/2025 1:52 AM EDT 06/20/2025 1:59 AM EDT Phillip Clark MD LAB BLOOD ORDERABLES Final R esult Performing Organization Address City/State/[facility] Co de Phone Number [facility] [address] [place] [address] * PERIPHERAL IV (SMARTFORM LINK) (06/20/2025 1:47 [...] ECG Atrial Rate 85 BPM MUSE ECG VA Interval 176 ms MUSE ECG QRSD Interval 110 ms MUSE ECG QT Interval 402 ms MUSE ECG QTC Interval 478 ms MUSE ECG P [place] 43 degrees MUSE ECG R [place] -30 degrees MUSE ECG T Wave [place] 36 degrees MUSE ECG Diagnosis Poor data quality, interpretation may be adversely affected MUSE ECG Diagnosis Sinus rhythm with premature supraventricular complexes and with occasional premature ventricular complexes MUSE ECG Diagnosis Left axis deviation MUSE ECG Diagnosis Poor R-wave progression MUSE ECG Diagnosis Abnormal ECG MUSE ECG Diagnosis Recommend repeat ECG MUSE ECG Diagnosis MUSE ECG Diagnosis Confirmed by Aman Coe ([id number]) on 06/19/2025 1:33:10 PM MUSE ECG 06/19/2025 [...] - 99 mg/dL 06/16/2025 7:41 PM EDT [facility] BUN, Plasma 15 8 - 23 mg/dL 06/16/2025 7:41 PM EDT [facility] Creatinine, Plasma 0.79 0.70 - 1.20 mg/dL 06/16/2025 7:41 PM EDT [facility] BUN/Creatinine Ratio 19 06/16/2025 7:41 PM EDT [facility] Sodium, Plasma 134(L) 136 - 145 mmol/L 06/16/2025 7:41 PM EDT [facility] Potassium, Plasma 3.8 3.6 - 4.9 mmol/L 06/16/2025 7:41 PM EDT [facility] Chloride, Plasma 98 97 - 107 mmol/L 06/16/2025 7:41 PM EDT [facility] CO2, Plasma 25 22 - 29 mmol/L 06/16/2025 7:41 PM EDT [facility] Anion Gap 11 6 - 16 mmol/L 06/16/2025 7:41 PM EDT [facility] Total Calcium, Plasma 8.4(L) 8.9 - 10.2 mg/dL 06/16/2025 7:41 PM EDT [facility] Phosphorus, Plasma 2.2(L) 2.5 - 4.5 mg/dL 06/16/2025 7:41 PM EDT [facility] Albumin, Plasma 3.4(L) 3.5 - 5.2 g/dL 06/16/2025 7:41 PM EDT [facility] eGFRcr 96.2 mL/min/1.7 3m*2 06/16/2025 7:41 PM EDT [facility] Comment:Reported eGFRcr in m L/min/1.73m2 is based the CKD-EPI 2020 equation that does not use a race coefficient. Blood Venous blood specimen / Unknown Venipuncture / Unknown 06/16/2025 5:35 PM EDT 06/16/2025 7:12 PM EDT us Phillip Clark MD LAB BLOOD ORDERABLES Final R esult [facility] [address] [place] [address] * [facility], E/M 30-74 MINUTES (06/16/2025 9:58 [...] 99 mg/dL 06/16/2025 8:45 AM EDT [facility] Comment:Accuracy of a glucos e result [...] for testing. Comment 06/16/2025 8:45 AM EDT [facility] Jet Aircraft Servicer ID Fariba [id number] [id number] 8:45 AM EDT [facility] Device ID [id number] 06/16/2025 8:45 AM EDT [facility] Specimen Type POC Arterial 06/16/2025 8:45 AM EDT [facility] Blood Arterial blood specimen / Unknown 06/16/2025 8:40 AM EDT 06/16/2025 8:45 AM EDT us Phillip Clark MD LAB POINT OF CARE TE ST DOCKED DEVICE UNSOLICITED RESULTS Final Result [facility] [address] [place] [address] * XR Abdomen 1 View (06/16/2025 1:20 [...] LAB HEMATOLOGY METHOD 06/16/2025 12:58 AM EDT [facility] pCO2, Arterial 41 32 - 45 mmHg LAB HEMATOLOGY METHOD 06/16/2025 12:58 AM EDT [facility] pO2, Arterial 65(L) >80 mmHg LAB HEMATOLOGY METHOD 06/16/2025 12:58 AM EDT [facility] SO2, Measured, Arterial 94 94 - 98 % LAB HEMATOLOGY METHOD 06/16/2025 12:58 AM EDT [facility] Base Excess, Arterial 2.5 -2.0 - 3.0 mmol/L LAB HEMATOLOGY METHOD 06/16/2025 12:58 AM EDT [facility] Bicarbonate, Calculated, Arterial 27(H) 22 - 26 mmol/L LAB HEMATOLOGY METHOD 06/16/2025 12:58 AM EDT [facility] Hematocrit, Whole Blood 37.9(L) 40.0 - 51.0 % LAB HEMATOLOGY METHOD 06/16/2025 12:58 AM EDT [facility] Sodium, Whole Blood 133(L) 136 - 145 mmol/L LAB HEMATOLOGY METHOD 06/16/2025 12:58 AM EDT [facility] Potassium, Whole Blood 3.4(L) 3.6 - 4.9 mmol/L LAB HEMATOLOGY METHOD 06/16/2025 12:58 AM EDT [facility] Chloride, Whole Blood 100 97 - 107 mmol/L LAB HEMATOLOGY METHOD 06/16/2025 12:58 AM EDT [facility] Glucose, Whole Blood 124(H) 74 - 99 mg/dL LAB HEMATOLOGY METHOD 06/16/2025 12:58 AM EDT [facility] Ionized Calcium, Whole Blood 4.3(L) 4.6 - 5.1 mg/dL LAB HEMATOLOGY METHOD 06/16/2025 12:58 AM EDT [facility] Lactate, Arterial, Whole Blood 1.0 0.5 - 1.6 mmol/L LAB HEMATOLOGY METHOD 06/16/2025 12:58 AM EDT [facility] Blood Arterial blood specimen / Unknown Arterial Puncture / Unknown 06/16/2025 12:36 AM EDT 06/16/2025 12:55 AM EDT us Phillip Clark MD LAB BLOOD ORDERABLES Final R esult [facility] [address] [place] [address] * [facility], E/M 30-74 MINUTES (06/15/2025 9:19 [...] LAB HEMATOLOGY METHOD 06/15/2025 8:47 AM EDT [facility] RBC Count 4.60 4.60 - 6.10 10*6/uL LAB HEMATOLOGY METHOD 06/15/2025 8:47 AM EDT [facility] HGB 12.8(L) 13.7 - 17.5 g/dL LAB HEMATOLOGY METHOD 06/15/2025 8:47 AM EDT [facility] HCT 39.4(L) 40.0 - 51.0 % LAB HEMATOLOGY METHOD 06/15/2025 8:47 AM EDT [facility] Platelet Count 120(L) 155 - 369 10*3/uL LAB HEMATOLOGY METHOD 06/15/2025 8:47 AM EDT [facility] MCV 86 79 - 98 fL LAB HEMATOLOGY METHOD 06/15/2025 8:47 AM EDT [facility] MCH 27.8 26.0 - 32.0 pg LAB HEMATOLOGY METHOD 06/15/2025 8:47 AM EDT [facility] MCHC 32.5 30.7 - 35.5 g/dL LAB HEMATOLOGY METHOD 06/15/2025 8:47 AM EDT [facility] RDW 15.5(H) 11.5 - 14.5 % LAB HEMATOLOGY METHOD 06/15/2025 8:47 AM EDT [facility] MPV 10.6 8.8 - 12.5 fL LAB HEMATOLOGY METHOD 06/15/2025 8:47 AM EDT [facility] nRBC 0.0 <=0.0 per 100 WBCs LAB HEMATOLOGY METHOD 06/15/2025 8:47 AM EDT [facility] Differential Type Automated LAB HEMATOLOGY METHOD 06/15/2025 8:47 AM EDT [facility] Neutrophils % 84 % LAB HEMATOLOGY METHOD 06/15/2025 8:47 AM EDT [facility] Lymphocytes % 5 % LAB HEMATOLOGY METHOD 06/15/2025 8:47 AM EDT [facility] Monocytes % 10 % LAB HEMATOLOGY METHOD 06/15/2025 8:47 AM EDT [facility] Eosinophils % 0 % LAB HEMATOLOGY METHOD 06/15/2025 8:47 AM EDT [facility] Basophils % 0 % LAB HEMATOLOGY METHOD 06/15/2025 8:47 AM EDT [facility] Immature Granulocytes % 1 % LAB HEMATOLOGY METHOD 06/15/2025 8:47 AM EDT [facility] Neutrophils Absolute 10.59(H) 1.60 - 6.10 10*3/uL LAB HEMATOLOGY METHOD 06/15/2025 8:47 AM EDT [facility] Lymphocytes Absolute 0.60(L) 1.20 - 3.90 10*3/uL LAB HEMATOLOGY METHOD 06/15/2025 8:47 AM EDT [facility] Monocytes Absolute 1.29(H) 0.30 - 0.90 10*3/uL LAB HEMATOLOGY METHOD 06/15/2025 8:47 AM EDT [facility] Eosinophils Absolute 0.00 0.00 - 0.50 10*3/uL LAB HEMATOLOGY METHOD 06/15/2025 8:47 AM EDT [facility] Basophils Absolute 0.02 0.00 - 0.10 10*3/uL LAB HEMATOLOGY METHOD 06/15/2025 8:47 AM EDT [facility] Immature Granulocytes Absolute 0.06 0.00 - 0.06 10*3/uL LAB HEMATOLOGY METHOD 06/15/2025 8:47 AM EDT [facility] Blood Venous blood specimen / Unknown Venipuncture / Unknown 06/15/2025 8:18 AM EDT 06/15/2025 8:34 AM EDT Narrative [facility] - 06/15/2025 8:47 AM EDT Therapeutic decision making should be based on absolute values, rather than percentages. us Phillip Clark MD LAB BLOOD ORDERABLES Final R esult Performing Organization Address City/[facility]/ZIP Co de Phone Number [facility] [address] [place] [address] * Ionized calcium, whole blood (06/15/2025 6:40 AM EDT) Ionized Calcium, Whole Blood 4.6 4.6 - 5.1 mg/dL LAB HEMATOLOGY METHOD 06/15/2025 6:50 AM EDT [facility] Blood Arterial blood specimen / Unknown Venipuncture / Unknown 06/15/2025 6:40 AM EDT 06/15/2025 6:48 AM EDT us Phillip Clark MD LAB BLOOD ORDERABLES Final R esult Performing Organization Address City/[facility]/ZIP Co de Phone Number [facility] [address] [place] [address] * [facility], ADDL 30 MIN, [facility], ADDL 30 MIN (06/15/2025 12:21 [...] LAB HEMATOLOGY METHOD 06/15/2025 8:17 AM EDT [facility] Neutrophils % 85 % LAB HEMATOLOGY METHOD 06/15/2025 8:17 AM EDT [facility] Lymphocytes % 4 % LAB HEMATOLOGY METHOD 06/15/2025 8:17 AM EDT [facility] Monocytes % 10 % LAB HEMATOLOGY METHOD 06/15/2025 8:17 AM EDT [facility] Eosinophils % 0 % LAB HEMATOLOGY METHOD 06/15/2025 8:17 AM EDT [facility] Basophils % 0 % LAB HEMATOLOGY METHOD 06/15/2025 8:17 AM EDT [facility] Immature Granulocytes % 1 % LAB HEMATOLOGY METHOD 06/15/2025 8:17 AM EDT [facility] Immature Granulocytes Absolute 0.05 0.00 - 0.06 10*3/uL LAB HEMATOLOGY METHOD 06/15/2025 8:17 AM EDT [facility] Neutrophils Absolute 9.28(H) 1.60 - 6.10 10*3/uL LAB HEMATOLOGY METHOD 06/15/2025 8:17 AM EDT [facility] Lymphocytes Absolute 0.45(L) 1.20 - 3.90 10*3/uL LAB HEMATOLOGY METHOD 06/15/2025 8:17 AM EDT [facility] Monocytes Absolute 1.14(H) 0.30 - 0.90 10*3/uL LAB HEMATOLOGY METHOD 06/15/2025 8:17 AM EDT [facility] Basophils Absolute 0.02 0.00 - 0.10 10*3/uL LAB HEMATOLOGY METHOD 06/15/2025 8:17 AM EDT [facility] Eosinophils Absolute 0.00 0.00 - 0.50 10*3/uL LAB HEMATOLOGY METHOD 06/15/2025 8:17 AM EDT [facility] Blood Venous blood specimen / Unknown Venipuncture / Unknown 06/15/2025 12:20 AM EDT 06/15/2025 12:26 AM EDT Phillip Clark MD LAB BLOOD ORDERABLES Final R esult Performing Organization Address City/[facility]/ZIP Co de Phone Number [facility] [address] [place] [address] * (ABNORMAL) Hemoglobin (06/15/2025 12:20 AM EDT) Only the most recent of2 resultswithin the time period is included. HGB 13.6(L) 13.7 - 17.5 g/dL LAB HEMATOLOGY METHOD 06/15/2025 12:36 AM EDT [facility] Blood Venous blood specimen / Unknown Venipuncture / Unknown 06/15/2025 12:20 AM EDT 06/15/2025 12:26 AM EDT Phillip Clark MD LAB BLOOD ORDERABLES Final R esult [facility] [address] [place] [address] * Hematocrit (06/15/2025 12:20 AM EDT) Only the most recent of2 resultswithin the time period is included. HCT 41.0 40.0 - 51.0 % LAB HEMATOLOGY METHOD 06/15/2025 12:36 AM EDT [facility] Blood Venous blood specimen / Unknown Venipuncture / Unknown 06/15/2025 12:20 AM EDT 06/15/2025 12:26 AM EDT us Phillip Clark MD LAB BLOOD ORDERABLES Final R esult Performing Organization Address City/[facility]/ZIP Co de Phone Number [facility] [address] [place] [address] * Potassium, Plasma (06/15/2025 12:20 AM EDT) Only the most recent of3 resultswithin the time period is included. Potassium, Plasma 4.5 3.6 - 4.9 mmol/L 06/15/2025 12:51 AM EDT [facility] Blood Venous blood specimen / Unknown Venipuncture / Unknown 06/15/2025 12:20 AM EDT 06/15/2025 12:26 AM EDT us Phillip Clark MD LAB BLOOD ORDERABLES Final R esult Performing Organization Address City/[facility] Co de Phone Number [facility] [address] [place] [address] * [facility], E/M 30-74 MINUTES (06/14/2025 5:35 [...] oximetry, mixed venous (06/14/2025 3:00 PM EDT) [facility] Signature pH, Mixed Venous 7.28(L) 7.32 - 7.43 LAB HEMATOLOGY METHOD 06/14/2025 3:24 PM EDT [facility] pCO2, Mixed Venous 47 40 - 55 mmHg LAB HEMATOLOGY METHOD 06/14/2025 3:24 PM EDT [facility] pO2, Mixed Venous 54(H) 25 - 40 mmHg LAB HEMATOLOGY METHOD 06/14/2025 3:24 PM EDT [facility] SO2, Measured, Mixed Venous 84(H) 65 - 80 % LAB HEMATOLOGY METHOD 06/14/2025 3:24 PM EDT [facility] Bicarbonate, Calculated, Mixed Venous 22 22 - 26 mmol/L LAB HEMATOLOGY METHOD 06/14/2025 3:24 PM EDT [facility] Base Excess, Mixed Venous -4.7(L) -2.0 - 3.0 mmol/L LAB HEMATOLOGY METHOD 06/14/2025 3:24 PM [facility] Hematocrit, Whole Blood 43.0 40.0 - 51.0 % LAB HEMATOLOGY METHOD 06/14/2025 3:24 PM [facility] Sodium, Whole Blood 139 136 - 145 mmol/L LAB HEMATOLOGY METHOD 06/14/2025 3:24 PM [facility] Potassium, Whole Blood 3.7 3.6 - 4.9 mmol/L LAB HEMATOLOGY METHOD 06/14/2025 3:24 PM [facility] Chloride, Whole Blood 110(H) 97 - 107 mmol/L LAB HEMATOLOGY METHOD 06/14/2025 3:24 PM [facility] Ionized Calcium, Whole Blood 4.6 4.6 - 5.1 mg/dL LAB HEMATOLOGY METHOD 06/14/2025 3:24 PM EDT [facility] Glucose, Whole Blood 149(H) 74 - 99 mg/dL LAB HEMATOLOGY METHOD 06/14/2025 3:24 PM EDT [facility] Oxyhemoglobin, Mixed Venous, Whole Blood 81.9(H) 40.0 - 70.0 % LAB HEMATOLOGY METHOD 06/14/2025 3:24 PM EDT [facility] Hemoglobin Reduced, Mixed Venous, Whole Blood 16.1 % LAB HEMATOLOGY METHOD 06/14/2025 3:24 PM EDT [facility] Total Hemoglobin, Mixed Venous, Whole Blood 14.0 13.7 - 17.5 g/dL LAB HEMATOLOGY METHOD 06/14/2025 3:24 PM EDT [facility] Blood Mixed venous blood specimen / Unknown Venipuncture / Unknown 06/14/2025 3:00 PM EDT 06/14/2025 3:23 PM EDT Phillip Clark MD LAB BLOOD ORDERABLES Final R esult Performing Organization Address [facility] de Phone Number [facility] [address] [place] [address] * Eli auris Surveillance by PCR (06/14/2025 2:37 PM EDT) Eli auris PCR Result Not Detected Not Detected 06/15/2025 12:[address] [facility] Swab (Axilla and Groin) Non-blood Collection / Unknown 06/14/2025 2:37 PM EDT 06/14/2025 3:10 PM EDT Narrative [facility] - 06/15/2025 12:46 PM EDT This PCR assay was developed and its performance characteristics determined by [facility] as appropriate for clinical purposes. This assay has not been cleared or approved by the FDA, but is performed in a CLIA regulated laboratory that is qualified to perform high-complexity testing. Phillip Clark MD LAB MICROBIOLOGY - GENERAL O RDERABLES Final Result Performing Organization Address [facility] Co de Phone Number [facility] [address] [place] [address] * Multi Drug Resistance Test (06/14/2025 2:37 PM EDT) Culture No growth at day 1 06/15/2025 4:03 PM EDT [facility] Swab (Nares and Smita Rectal) Non-blood Collection / Unknown 06/14/2025 2:37 PM EDT 06/14/2025 3:10 PM EDT Narrative [facility] - 06/15/2025 4:03 PM EDT This test was developed and its performance characteristics determined by the [facility]. Although the media is FDA-approved, it is not FDA-approved for all specimen types submitted. The FDA has determined that such clearance or approval is not necessary. This test is used for surveillance purposes. It should not be regarded as investigational or for research. The [facility] is certified under the Clinical Laboratory Improvement Amendments of 1988 (CLIA-88) as qualified to perform high complexity clinical laboratory testing. Phillip Clark MD LAB MICROBIOLOGY - GENERAL O RDERABLES Final Result Performing Organization Address [facility] [place] [address] * APTT (06/14/2025 2:36 PM EDT) Only the most recent of2 resultswithin the time period is included. aPTT 29 25 - 35 sec LAB COAGULATION METHOD 06/14/2025 4:11 PM EDT [facility] Blood Venous blood specimen / Unknown Venipuncture / Unknown 06/14/2025 2:36 PM EDT 06/14/2025 3:18 PM EDT Phillip Clark MD LAB BLOOD ORDERABLES Final R esult Performing Organization Address [facility] [place] [address] * PB POINT OF CARE IMAGING PLACEHOLDER [...] supine Prep: ChloraPrep Patient monitoring: heart rate, security monitor and continuous pulse ox Anesthesia block [...] mcg/kg/min) RV: same as baseline Aortic valve: diomede valve replaced by mechanical valve. New valve [...] 7.31 - 7.42 06/14/2025 2:02 PM EDT [facility] pCO2, Arterial 38 32 - 45 mm Hg 06/14/2025 2:[address] [facility] pO2, Arterial 376 >80 mm Hg 06/14/2025 2:[address] [facility] SO2, Arterial 100(H) 94 - 98 % 06/14/2025 2:[address] [facility] Base Excess, Arterial -4.2(L) -2 - 3 mmol/L 06/14/2025 2:[address] [facility] HCO3, Arterial 21.0(L) 22 - 26 mmol/L 06/14/2025 2:[address] [facility] Total Hemoglobin, Arterial, Whole Blood 14.5 13.7 - 17.5 g/dL 06/14/2025 2:02 PM [facility] Hematocrit, Arterial 44.0 40 - 51.0 % 06/14/2025 2:[address] [facility] Sodium, Arterial 136 136 - 145 mmol/L 06/14/2025 2:[address] [facility] Potassium, Arterial 3.4(L) 3.6 - 4.9 mmol/L 06/14/2025 2:02 PM [facility] Chloride, Whole Blood 105 97 - 107 mmol/L 06/14/2025 2:02 PM [facility] Glucose, Arterial 138(H) 74 - 99 mg/dL 06/14/2025 2:[address] [facility] Ionized Calcium, Arterial 4.9 4.6 - 5.1 mg/dL 06/14/2025 2:02 PM [facility] Lactate, Arterial 4.2(H) 0.5 - 1.6 mmol/L 06/14/2025 2:[address] [facility] Body Temperature 37.0 Celsius 06/14/2025 2:02 PM [facility] pH, Temp Corrected, Arterial 7.35 7.31 - 7.42 06/14/2025 2:02 PM [facility] pCO2, Temp Corrected, Arterial 38 32 - 45 mm Hg 06/14/2025 2:02 PM [facility] pO2, Temp Corrected, Arterial 376 >80 mm Hg 06/14/2025 2:[address] [facility] Jet Aircraft Servicer ID Ricki Zamarripa 06/14/2025 2:02 PM [facility] Blood Whole blood specimen / Unknown 06/14/2025 2:00 PM EDT 06/14/2025 2:02 PM EDT Phillip Clark MD LAB POINT OF CARE TE ST DOCKED DEVICE UNSOLICITED RESULTS Final Result Performing Organization Address [facility] de Phone Number [facility] [address] [place] [address] * POCT ACT (06/14/2025 12:43 PM EDT) Only the most recent of7 resultswithin the time period is included. ACT+ (HIGH RANGE) 98 68 - 600 Seconds 06/14/2025 12:49 PM EDT [facility] Jet Aircraft Servicer ID Cresencio, Gene 06/14/2025 12:49 PM EDT [facility] ACT Device ID [id number] 06/14/2025 12:49 PM EDT [facility] Comment 06/14/2025 12:[address] [facility] Comment: ACT performed by staff at point [...] UNSOLICITED RESULTS Final Result Performing Organization Address City/[facility] de Phone Number [facility]ARE [facility] [address] [facility] [address] [place] [address] * (ABNORMAL) QPLUS (06/14/2025 11:55 AM EDT) [...] Seconds 06/14/2025 12:12 PM EDT [facility] Jet Aircraft Servicer ID Ricki Zamarripa 06/14/2025 12:12 PM EDT [facility] Device ID [id number] 06/14/2025 12:12 PM EDT [facility] Whole Blood 06/14/2025 11:5 5 AM EDT 06/14/2025 12:12 PM EDT Narrative [facility] - 06/14/2025 12:[address]: No Clot Detected us Phillip Clark MD LAB POINT OF CARE TE ST DOCKED DEVICE UNSOLICITED RESULTS Final Result Performing Organization Address City/State/[facility] de Phone Number [facility] [address] [place] [address] * Surgical Pathology Exam (06/14/2025 10:18 AM EDT) Case Report Surgical Pathology Case: [id number] Authorizing Provider: Phillip Clark MD Collected: 06/14/2025 1018 Ordering Location: [facility] Received: 06/14/2025 1413 Pathologist: Beth Lake MD Specimen: Heart, aortic valve leaflets 06/15/2025 11:44 AM EDT [facility] Final Diagnosis A. AORTIC VALVE LEAFLETS, REPLACEMENT: - FIBROSIS AND MYXOID DEGENERATION. 06/15/2025 11:44 AM EDT [facility] at 1144 EDT Clinical Information Severe aortic regurgitation [I35.1] 06/15/2025 11:44 AM EDT [facility] Gross Description A. AORTIC VALVE LEAFLETS Received fresh and placed in formalin labeled aortic valve leaflets are 2 white-montez soft cardiac leaflets ranging in size from 2.5-4.0 cm in greatest dimension. Repair Supervisor sections are submitted in cassette A1. Cold Time: 3h 55m April Santos 06/15/2025 11:44 AM EDT [facility] Tissue Heart structure / Unknown 06/14/2025 10:18 AM EDT 06/14/2025 2:13 PM EDT Comment:Pre-op diagnosis: Severe aortic regurgitation [I35.1] us Phillip Clark MD LAB PATHOLOGY ORDERABLES Fin al Result [facility] [address] [place] [address] * VA AN CENTRAL LINE DOUBLE LUMEN, PB ANESTHESIA NON-TIMED PROCEDURE PLACEHOLDER, ANESTHESIA ULTRASOUND GUIDED, VA INSERT/PLACE FLOW DIRECT CATH, PB POINT OF [...] MD ANESTHESIA ORDERABLES Final Resu lt * VA AN ELECTIVE ENDOTRACHEAL AIRWAY, PB ANESTHESIA PLACEHOLDER [...] ORDERABL ES Final Result Performing Organization Address City/State/[facility] de Phone Number BLOOD BANK [address] [place] [address], * Type & Screen, 30 Days (06/09/2025 [...] Result Performing Organization Address [facility] Co de Phone Number BLOOD BANK [address] * (ABNORMAL) Hemoglobin A1c (06/09/2025 1:39 PM EDT) Hemoglobin A1c 5.7(H) <5.7 % 06/09/2025 6:09 PM EDT [facility] Blood Venous blood specimen / Unknown Venipuncture / Unknown 06/09/2025 1:39 PM EDT 06/09/2025 1:40 PM EDT Narrative [facility] - 06/09/2025 6:09 PM EDT HA1C Interpretive Data: Diagnosis of Diabetes: Diabetic > or = 6.5% Pre-diabetic 5.7 to 6.4% Non-diabetic < or = 5.6% Glycemic Targets for Type I and Type II Diabetics: Non- Adults <7.0% Adults <6.0% Children and Adolescents <7.5% Source: [place] [employer]. Standards of medical care in diabetes,2017. Diabetes Care.2017:40 (suppl 1):S1-S135. Phillip Clark MD LAB BLOOD ORDERABLES Final R esult Performing Organization Address City/[facility] Co de Phone Number [facility] [address] [place] [address] * Comprehensive Metabolic Panel, Plasma (06/09/2025 1:39 PM EDT) Glucose, Plasma 86 74 - 99 mg/dL 06/09/2025 3:57 PM EDT [facility] BUN, Plasma 15 8 - 23 mg/dL 06/09/2025 3:57 PM EDT [facility] Creatinine, Plasma 0.85 0.70 - 1.20 mg/dL 06/09/2025 3:57 PM EDT [facility] BUN/Creatinine Ratio 18 06/09/2025 3:57 PM EDT [facility] Sodium, Plasma 139 136 - 145 mmol/L 06/09/2025 3:57 PM EDT [facility] Potassium, Plasma 4.7 3.6 - 4.9 mmol/L 06/09/2025 3:57 PM EDT [facility] Chloride, Plasma 107 97 - 107 mmol/L 06/09/2025 3:57 PM EDT [facility] CO2, Plasma 24 22 - 29 mmol/L 06/09/2025 3:57 PM EDT [facility] Anion Gap 8 6 - 16 mmol/L 06/09/2025 3:57 PM EDT [facility] Total Calcium, Plasma 9.0 8.9 - 10.2 mg/dL 06/09/2025 3:57 PM EDT [facility] Total Protein 6.6 6.3 - 7.9 g/dL 06/09/2025 3:57 PM EDT [facility] Albumin, Plasma 4.2 3.5 - 5.2 g/dL 06/09/2025 3:57 PM EDT [facility] AST, Plasma 23 10 - 50 U/L 06/09/2025 3:57 PM EDT [facility] ALT, Plasma 23 10 - 50 U/L 06/09/2025 3:57 PM EDT [facility] Alkaline Phosphatase, Plasma 66 40 - 115 U/L 06/09/2025 3:57 PM EDT [facility] Total Bilirubin, Plasma 0.8 0.2 - 1.1 mg/dL 06/09/2025 3:57 PM EDT [facility] eGFRcr 94.1 mL/min/1.7 3m*2 06/09/2025 3:57 PM EDT [facility] Comment:Reported eGFRcr in m L/min/1.73m2 is based the CKD-EPI 2020 equation that does not use a race coefficient. Blood Venous blood specimen / Unknown Venipuncture / Unknown 06/09/2025 1:39 PM EDT 06/09/2025 1:40 PM EDT us Phillip Clark MD LAB BLOOD ORDERABLES Final R esult [facility] [address] [place] [address] from Last 3 Months Insurance [facility] MEDICARE Advance Directives * Full Code (Latest Code Status on File) Date Activated Date Inactivated Comments 06/14/2025 2:35 PM 06/20/2025 4:27 PM Question Answer Comments I have reviewed the capacity from the link above and, if needed, have updated to appropriate status: Yes Care Teams Rn Examiner Relationship Specialty [place] [id number] PCP - General 02/28/25
[2025-08-01 10:54] LABS: PHA INR Fingerstick 1.8 (0.9-1.1)
== END 2025-08-01 10:58 ==
LOC: ACC 10:15
PROVIDERS: PCP Family Medicine; Visit Provider Nurse Practitioner
DX: Z79.01 Long term (current) use of anticoagulants (principal); Z95.2 Presence of prosthetic heart valve
CPT/HCPCS: 85610; 99211; G0463

== ENCOUNTER 2025-08-02 07:11 | Outpatient (CLI) | payer BC, MEDICARE, SELFPAY ==
--- OUTSIDE RECORDS SUMMARY | 2025-06-07 07:30 | XMS_ITS | Encounter Summary ---
Author Organization [facility] Address [address] [place] [address] Care Team Providers Care Closing Machine Operator Name Role Phone Kamran Singh MD Primary Care Provider + [phone] Encounter Details Date Type Department Care Team (Late st Contact Info) Description 06/07/2025 8:30 AM EDT Pre-Admission Testing [place] [facility] [address], [address] [place] [id number] Social History Tobacco Use Types Packs/Day Years [...] time in the past [address] [facility], were you homeless or living in a long-term (including now)? No 06/15/2025 [facility] Utilities Answer Date Recorded In the [...] with Phillip Clark MD on 06/14/2025 at [facility] under general anesthesia. aortic enlargement, measured as [...] fibrillation, CHF, dysrhythmias, hyperlipidemia, pacemaker or past [place]. hypertension: Exercise tolerance is 1 flight of [...] tablets by mouth every morning. Under [place] law, monthly prescriptions (30days) can be refilled [...] card, photo ID, along with power of transactional attorney, guardianship or advanced directives if applicable [...] Care Team (Late st Contact Info) Description 07/20/2026 12:00 PM EST Appointment Cardiac Imaging [address] [place] [address] 07/20/2026 1:40 PM EST Office Visit [place] [facility] [address], [address] [place] [address] Phillip Clark MD [address] [place] [address] documented as of this encounter Visit Diagnoses Not on filedocumented in this encounter Additional Health Concerns Assessment Noted Time A fall risk assessment has been complete d for the patient 05/05/2025 9:58 AM EDT A Body Mass Index follow-up plan has been documented for the patient 05/05/2025 10:51 AM EDT documented as of this encounter Care Teams Closing Machine Operator Relationship Specialty [place] [address] PCP - General 02/28/25 documented as of this encounter
--- OUTSIDE RECORDS SUMMARY | 2025-06-09 11:20 | XMS_ITS | Encounter Summary ---
Author Organization [facility] Address [address] [id number] Care Team Providers Care Pump Runner Name Role Phone Kamran Singh MD Primary Care Provider [phone] Encounter Details Date Type Department Care Team (Latest Contact Info) Description 06/09/2025 12:20 PM EDT Office Visit [place] [facility] Cardi[facility] [address], [address] [place] [address] Phillip Clark MD [address] [facility] [address] [place] [address] Severe aortic regurgitation (Primary Dx) [...] Sign Reading Time Taken Comments Blood Pressure - - Pulse - - Temperature - - Respiratory Rate - - Oxygen Saturation - - Inhaled Oxygen Concentration - - Weight 87.8 kg (193 lb 9 oz) 06/09/2025 12:14 PM EDT Height - - Body Mass Index 30.32 04/14/2025 12:32 PM EDT documented in this encounter Miscellaneous Notes * Progress Notes - Lorelei Dominique, AUTOMATIC BEADING LATHE OPERATOR - 06/09/2025 12:20 PM EDT Reason for visit / Chief Complaint: Pre-op visit for consent, labs, xray History of present illness: Bradley Forrest is a 69 y.o. male with history of aortic insufficiency, ascending aortic aneurysm, CAD with recent PCI, hypertension, hyperlipidemia, and obesity who is scheduled for aortic root reconstruction on 06/[address] Clark. He was initially seen in our clinic on 03/10/2025 after he was notedto have a murmur on exam which prompted a CT chest and TTE which showed a 4.1 cm aneurysm and a mild degree of aortic insufficiency. At that time we recommended 6 month follow-up with CT chest for ongoing monitoring of the aortic enlargement. Following that visit he had a cardiac catheterization with Dr. Duvall in which he had 2 stents placed and a cardiac MRI revealed severe aortic regurgitation. He was seen on 04/14 and a repeat TTE was ordered. That was completed on 04/25 and showed mod-severe AI and significant LV dilation with a normal EF. He returns to clinic today for consenting, labs,and pre-operative chest xray. He denies any interval change in his HPI since our last visit. Medical History His chronic comorbid conditions that impact our treatment planning include: Cardiac Surgery: The comorbid conditions that impact and complicate our treatment planning include:Obesity NYHA Classification: Class II: Mild symptoms with ordinary activity. Smoking Cessation: Nonsmoker Active Problems: Patient Active Problem List Diagnosis Date Noted Benign prostatic hyperplasia 05/05/2025 Diabetes 05/05/2025 CAD (coronary artery disease) 04/14/2025 History of coronary angioplasty with insertion of stent 04/14/2025 Ascending aortic aneurysm (CMS/HCC) 04/14/2025 Aortic valve regurgitation 04/14/2025 BMI 30.0-30.9,adult 03/10/2025 High cholesterol 12/23/2019 Hypertension 12/23/2019 Severe aortic regurgitation 05/05/2025 Medical History: Past Medical History Pertinent Negatives[1] Surgical History: Surgical History[2] Social History: Tobacco: Tobacco Use: Low Risk (06/09/2025) Patient History Smoking Tobacco Use: Never Smokeless [...] 2 tablets by mouth every morning. Under [employer] law, monthly prescriptions (30 days) can be refilled at 25 days and three-month prescriptions (90 days) at 80 days. Please contact the insurance company with questions if refills are denied. Patient taking differently: Take 2 tablets by mouth every 4 hours as needed. Under [employer] law, monthly prescriptions (30 days) can be [...] tablet by mouth 2 times a day. Takes bid Yes Provider, Historical clopidogrel (Plavix) [...] tablet by mouth daily. Yes Provider, Historical rosuvastatin (Crestor) 40 MG tablet Take 1 tablet by mouth daily. Yes Provider, Historical spironolactone (Aldactone) 25 MG tablet Take 1 tablet by mouth daily. Yes Provider, Historical Repatha SureClick 140 MG/ML solution auto-injector autoinjector Inject 1 mL under the skin every 14days. Patient not taking: Reported on 06/09/2025 02/26/25 Provider, Historical Physical exam: Visit Vitals Wt 87.8 kg (193 lb 9 oz) BMI 30.32 kg/m?? Review of Systems All other systems reviewed and are negative. Physical Exam Constitutional: Appearance: Normal appearance. HENT: Head: Normocephalic and atraumatic. Right Ear: External ear normal. Left Ear: External ear normal. Nose: Nose normal. Mouth/Throat: Pharynx: Oropharynx is clear. Eyes: Pupils: Pupils are equal, round, and reactive to light. Cardiovascular: Rate and Rhythm: Tachycardia present. Pulses: Normal pulses. Pulmonary: Effort: Pulmonary effort is normal. Abdominal: Palpations: Abdomen is soft. Genitourinary: Comments: [...] Content: Thought content normal. Judgment: Judgment normal. Labs in last 18 hours: CBC WBC [...] mod-severe aortic regurgitation, mild MR Cardiac Cath Results: LM: angiographically normal LAD: 10% prox, 30% mid, luminal irregularities within D1 LCX: luminal irregularities RCA: 70% prox, 80% PLB. Successful stenting of RCA and PLB Impression: Severe Aortic Insufficiency Impression: Bradley Forrest is a 69 y.o. male with history of aortic insufficiency, ascending aortic aneurysm, CAD with recent PCI, hypertension, hyperlipidemia, and obesity who is scheduled for aortic root reconstruction on 06/[address] Clark. Plan: - Patient instructed to hold plavix after today, empaglifozin after 06/10 and losartan after 06/11 dose. He has already been holding his ibuprofen and rapatha. - Dr. Clark discussed valve options with Mr. Forrest and he has indicated a preference for a mechanical valve. He is aware that this option involves lifelong daily anticoagulation. - Consent completed for aortic root reconstruction and all other indicated procedures - Risks of procedure discussed with patient, risks include but are not limited to infection, poor wound healing, bleeding, stroke, arrhythmias, injury to heart and other organs, and . Additionalrisks related to the use of blood products, including reaction and infection. - Labs, chest xray to follow appointment [1] Past Medical History: Diagnosis Date Cardiac murmur Hyperlipidemia Hypertension [2] Past Surgical History: Procedure Laterality Date COLONOSCOPY CORONARY STENT PLACEMENT KNEE SURGERY Right OTHER SURGICAL HISTORY N/A Knee arthroscopy from [employer] SHOULDER SURGERY Right [3] Allergies Allergen Reactions Seafood Hives Lisinopril Cough documented in this encounter Plan of Treatment Upcoming Encounters Date Type Department Care Team (Late st Contact Info) Description 07/20/2026 12:00 PM EST Appointment Cardiac Imaging [address] [place] [address] 07/20/2026 1:40 PM EST Office Visit [place] [facility] [address], [address] [place] [address] Phillip Clark MD [address] [place] [address] documented as of this encounter Results * XR Chest 2 Views (06/09/2025 1:53 PM EDT) Anatomical Region Laterality Modality Chest Digital Radiogra phy Impressions 06/09/2025 4:00 PM EDT No acute cardiopulmonary findings. CRITICAL RESULT: No. COMMUNICATION: Per this written report. By electronically signing this report, I, the attending physician, attest that I have personally reviewed the images/data for the above examination(s) and agree with the final edited report. Drafted by Sridhar Salmon MD on 06/09/2025 3:04 PM Final report signed by Kamran Arellano MD on 06/09/2025 4:00 PM Narrative 06/09/2025 4:00 PM EDT CLINICAL INDICATION: aortic regurg TECHNIQUE: XR CHEST 2 VIEWS COMPARISON: CT chest 04/14/2025 FINDINGS: The mediastinal contour is within normal limits. Mild biapical scarring. No focal airspace consolidation. No pleural effusion or pneumothorax. Mild multilevel degenerative changes of the thoracic spine. Procedure Note Kamran Arellano MD - 06/09/2025 CLINICAL INDICATION: aortic regurg TECHNIQUE: XR CHEST 2 VIEWS COMPARISON: CT chest 04/14/2025 FINDINGS: The mediastinal contour is within normal limits. Mild biapical scarring.No focal airspace consolidation. No pleural effusion or pneumothorax. Mildmultilevel degenerative changes of the thoracic spine. IMPRESSION: No acute cardiopulmonary findings. CRITICAL RESULT: No. COMMUNICATION: Per this written report. By electronically signing this report, I, the attending physician, attestthat I have personally reviewed the images/data for the aboveexamination(s) and agree with the final edited report. Drafted by Sridhar Salmon MD on 06/09/2025 3:04 PM Final report signed by Kamran Arellano MD on 06/09/2025 4:00 PM us Phillip Clark MD IMG XR PROCEDURES Final Resu lt * (ABNORMAL) CBC (06/09/2025 1:39 PM EDT) WBC Count 6.17 3.70 - 10.30 10*3/uL LAB HEMATOLOGY METHOD 06/09/2025 3:[address] [facility] RBC Count 5.62 4.60 - 6.10 10*6/uL LAB HEMATOLOGY METHOD 06/09/2025 3:[address] [facility] HGB 15.6 13.7 - 17.5 g/dL LAB HEMATOLOGY METHOD 06/09/2025 3:[address] [facility] HCT 49.2 40.0 - 51.0 % LAB HEMATOLOGY METHOD 06/09/2025 3:[address] [facility] Platelet Count 205 155 - 369 10*3/uL LAB HEMATOLOGY METHOD 06/09/2025 3:[address] [facility] MCV 88 79 - 98 fL LAB HEMATOLOGY METHOD 06/09/2025 3:[address] [facility] MCH 27.8 26.0 - 32.0 pg LAB HEMATOLOGY METHOD 06/09/2025 3:[address] [facility] MCHC 31.7 30.7 - 35.5 g/dL LAB HEMATOLOGY METHOD 06/09/2025 3:[address] [facility] RDW 15.3(H) 11.5 - 14.5 % LAB HEMATOLOGY METHOD 06/09/2025 3:[address] [facility] MPV 10.6 8.8 - 12.5 fL LAB HEMATOLOGY METHOD 06/09/2025 3:[address] [facility] nRBC 0.0 <=0.0 per 100 WBCs LAB HEMATOLOGY METHOD 06/09/2025 3:[address] [facility] Blood Venous blood specimen / Unknown Venipuncture / Unknown 06/09/2025 1:39 PM EDT 06/09/2025 1:40 PM EDT us Phillip Clark MD LAB BLOOD ORDERABLES Final R esult [facility] [address] [place] [address] * Comprehensive Metabolic Panel, Plasma (06/09/2025 1:39 PM EDT) Glucose, Plasma 86 74 - 99 mg/dL 06/09/2025 3:[address] [facility] BUN, Plasma 15 8 - 23 mg/dL 06/09/2025 3:[address] [facility] Creatinine, Plasma 0.85 0.70 - 1.20 mg/dL 06/09/2025 3:[address] [facility] BUN/Creatinine Ratio 18 06/09/2025 3:[address] [facility] Sodium, Plasma 139 136 - 145 mmol/L 06/09/2025 3:[address] [facility] Potassium, Plasma 4.7 3.6 - 4.9 mmol/L 06/09/2025 3:[address] [facility] Chloride, Plasma 107 97 - 107 mmol/L 06/09/2025 3:[address] [facility] CO2, Plasma 24 22 - 29 mmol/L 06/09/2025 3:[address] [facility] Anion Gap 8 6 - 16 mmol/L 06/09/2025 3:[address] [facility] Total Calcium, Plasma 9.0 8.9 - 10.2 mg/dL 06/09/2025 3:[address] [facility] Total Protein 6.6 6.3 - 7.9 g/dL 06/09/2025 3:[address] [facility] Albumin, Plasma 4.2 3.5 - 5.2 g/dL 06/09/2025 3:[address] [facility] AST, Plasma 23 10 - 50 U/L 06/09/2025 3:[address] [facility] ALT, Plasma 23 10 - 50 U/L 06/09/2025 3:[address] [facility] Alkaline Phosphatase, Plasma 66 40 - 115 U/L 06/09/2025 3:[address] [facility] Total Bilirubin, Plasma 0.8 0.2 - 1.1 mg/dL 06/09/2025 3:[address] [facility] eGFRcr 94.1 mL/min/1.7 3m*2 06/09/2025 3:[address] [facility] Comment:Reported eGFRcr in m L/min/1.73m2 is based the CKD-EPI 2020 equation that does not use a race coefficient. Blood Venous blood specimen / Unknown Venipuncture / Unknown 06/09/2025 1:39 PM EDT 06/09/2025 1:40 PM EDT us Phillip Clark MD LAB BLOOD ORDERABLES Final R esult [facility] [address] [place] [address] * (ABNORMAL) Hemoglobin A1c (06/09/2025 1:39 PM EDT) Hemoglobin A1c 5.7(H) <5.7 % 06/09/2025 6:[address] [facility] Blood Venous blood specimen / Unknown Venipuncture / Unknown 06/09/2025 1:39 PM EDT 06/09/2025 1:[address] [facility] - 06/09/2025 6:09 PM EDT HA1C Interpretive Data: Diagnosis of Diabetes: Diabetic > or = 6.5% Pre-diabetic 5.7 to 6.4% Non-diabetic < or = 5.6% Glycemic Targets for Type I and Type II Diabetics: Non- Adults <7.0% Adults <6.0% Children and Adolescents <7.5% Source: [place] [employer]. Standards of medical care in diabetes,2017. Diabetes Care.2017:40 (suppl 1):S1-S135. Phillip Clark MD LAB BLOOD ORDERABLES Final R esult Performing Organization Address City/[facility] Co de Phone Number [facility] [address] [place] [address] * Protime-INR (06/09/2025 1:39 PM EDT) Prothrombin Time 13.6 12.0 - 14.3 sec LAB COAGULATION METHOD 06/09/2025 3:[address] [facility] INR 1.0 0.9 - 1.1 LAB COAGULATION METHOD 06/09/2025 3:[address] [facility] Blood Venous blood specimen / Unknown Venipuncture / Unknown 06/09/2025 1:39 PM EDT 06/09/2025 1:[address] [facility] - 06/09/2025 3:58 PM EDT OPTIMAL INR RANGES FOR PATIENT ON ORAL ANTICOAGULANT THERAPY Prevention of venous thromboembolism INR 2.0 to 3.0 In patients with heart disease: Atrial fibrillation INR 2.0 to 3.0 Valvular heart disease INR 2.0 to 3.0 Tissue heart valves INR 2.0 to 3.0 Mechanical prosthetic valves INR 2.5 to 3.5 Prevention of recurrent AL INR 2.5 to 3.5 Phillip Clark MD LAB BLOOD ORDERABLES Final R esult Performing Organization Address [facility] [place] [address] * APTT (06/09/2025 1:39 PM EDT) aPTT 33 25 - 35 sec LAB COAGULATION METHOD 06/09/2025 3:58 PM EDT [facility] Blood Venous blood specimen / Unknown Venipuncture / Unknown 06/09/2025 1:39 PM EDT 06/09/2025 1:40 PM EDT Phillip Clark MD LAB BLOOD ORDERABLES Final R esult Performing Organization Address City/[facility] Co de Phone Number [facility] [address] [place] [address] * Type & Screen, 30 Days (06/09/2025 1:39 PM EDT) ABO/Rh O Positive 06/09/2025 2:35 PM EDT BLOOD BANK Antibody Screen Negative 2:35 PM EDT BLOOD BANK Specimen Expiration 06/12/2025 23:59 06/09/2025 2:35 PM EDT BLOOD BANK 30 Day Eligibility See Comment 06/09/2025 2:35 PM EDT BLOOD BANK Comment:This specimen is deangelo gible for a Type and Screen for up to 30 days from collection. On the day of surgery/procedure, please order and collect a new ABO/Rh specimen to confirm the blood type and to re-verify the patient's eligibility for a 30 day Type and Screen. Refer to policy A08-125 Blood or Blood Product Transfusions for more detailed instructions. Blood Venous blood specimen / Unknown Venipuncture / Unknown 06/09/2025 1:39 PM EDT 06/09/2025 1:40 PM EDT us Phillip Clark MD LAB BLOOD BANK TEST ORDERABL ES Final Result BLOOD BANK [address] documented in this encounter Visit Diagnoses Diagnosis Severe aortic regurgitation- Primary Severe aortic regurgitation documented in this encounter Additional Health Concerns Assessment Noted Time A fall risk assessment has been complete d for the patient 06/09/2025 12:15 PM EDT A Body Mass Index follow-up plan has been documented for the patient 06/09/2025 2:00 PM EDT documented as of this encounter Care Teams Pump Runner Relationship Specialty Start Date End Date Kamran Singh MD [id number] PCP - General 02/28/25 documented as of this encounter
--- OUTSIDE RECORDS SUMMARY | 2025-06-09 12:42 | XMS_ITS | Encounter Summary ---
Author Organization [facility] Address [address] [place] [id number] Care Team Providers Care Residential Driver Name Role Phone Kamran Singh MD Primary Care Provider [phone] Encounter Details Date Type Department Care Team (Latest Contact Info) Description 06/09/2025 1:42 PM EDT - 06/09/2025 11:59 PM EDT Hospital Encounter [place] [facility] [address], [address] [place] [phone] Severe aortic regurgitation Discharge Disposition: Home or [...] any time in the past 12 m [facility], were you homeless or living in a detention (including now)? No 06/15/2025 [facility] Utilities Answer Date Recorded In the [...] 2 tablets by mouth every morning. Under [place] law, monthly prescriptions (30 days) can be [...] PM EST Appointment Cardiac Imaging [address] [place] [address] 07/20/2026 1:40 PM EST Office Visit [place] [facility] [address], [facility] [address] [place] [address] Phillip Clark MD [address] [place] [address] documented as of this encounter Procedures Procedure [...] documented as of this encounter Care Teams Residential Driver Relationship Specialty [place] [id number] PCP - General 02/28/25 documented as of this encounter
--- OUTSIDE RECORDS SUMMARY | 2025-06-14 04:18 | XMS_ITS | Encounter Summary ---
Author Organization [facility] Address [address] [place] [id number] Care Team Providers Care Director Supply Name Role Phone Kamran Singh MD Primary Care Provider [phone] Reason for Referral * Consultation (Routine) - Authorized Specialty Diagnoses / Procedures Referred By Nathalia garcia Referred To Contact Cardiac Rehabilitation Diagnoses S/P AVR Phillip Clark MD [address] [address] Phone: tel: fax: Referral ID Status Reason Start Date Expiration Date V isits Requested Visits Authorized [id number] Authorized 06/20/2025 12/20/2026 1 1 Reason for Visit * Auth/Cert (Routine) Specialty Diagnoses / Procedures Referred By Nathalia garcia Referred To Contact Diagnoses Severe aortic regurgitation Severe aortic regurgitation [I35.1] Procedures TX -AORT GRF W/CARD BYP F/AORTIC DISSECTION AORTIC ROOT RECONSTRUCTION Phillip Clark MD [address] [address] Phone: tel: fax: [facility] A OPERATING ROOM [address] [place] [address] Phone: tel: Referral ID Status Reason Start Date Expiration Date Visits Re quested Visits Authorized [id number] 1 1 Encounter Details Date Type Department Care Team (Latest Contact Info) Description 06/14/2025 5:18 AM EDT - 06/20/2025 2:25 PM EDT Hospital Encounter [facility] Inpatient [address] [facility] [place] [address] Phillip Clark MD [address] [place] [address] Other secondary hypertension (Primary Dx); [...] were you homeless or living in a correction (including now)? No 06/15/2025 [facility] [...] Garcia RN 6. Suicidal Behavior (Lifetime) No 5 8:00 PM EDT Any Garcia RN documented [...] by mouth daily. 30 tablet 2 06/20/2025 ezetimibe (Zetia) 10 MG tablet Take 1 [...] a day. 60 tablet 2 06/20/2025 6 omeprazole (PriLOSEC) [address] capsule Take [...] tablet by mouth daily. 30 tablet 06/20/2025 5 docusate sodium (Colace) 100 MG capsule Take 1 capsule by mouth 2 times a day for 10 days. Hold for loose stool 20 capsule 06/20/2025 5 potassium chloride CR (Klor-Con M20) 20 MEQ ER tablet Take 1 tablet by mouth daily for 3 days. Do not crush or chew. Take for 3 days only; to be taken with Lasix (furosemide) 40mg once daily for 3 days only. 3 tablet 06/20/2025 5 senna (Senokot) 8.6 MG tablet Take 2 tablets by mouth nightly for 10 days. Hold for loose stools 20 tablet 06/20/2025 5 naloxone (Narcan) 4 mg/0.1 mL nasal spray 1. Give 1 spray in nostril for no/slow breathing or cannot wake after opioid use 2. Call 911 3. Repeat in other nostril if symptoms continue 1 each 06/20/2025 5 documented as of this encounter Miscellaneous Notes [...] a referral and prefers to attend at [facility]. [place] will contact Mr. Forrest to discuss and [...] 2. Eligibility: Heart valve surgery 3. Exceptions/exclusions: [facility] Cardiac Rehab Exclusions: None 4. Referral: [facility] Cardiac Rehab Referral: Patient agreed with referral to the cardiac rehabilitation program at [facility] in [place], [place], phone number [phone]. 5. Information sent: Information Sent: Appropriate information will be sent to the receiving cardiac rehabilitation program.: * Progress Notes - Oumou Berger - 06/20/2025 10:15 AM EDT Case Management Discharge Note Bradley Forrest 69 y.o. male CSN: [id number] Admission: 06/14/2025 5:18 AM Primary Problem: Aortic valve regurgitation Primary Heating And Ventilating Tender: Primary Caregiver: Self Assistance Available at Discharge: Current Outpatient/Agency/Support Group: DME Availability of Care Givers (#Hours): Other (comment) (As needed) Family/Heating And Ventilating Tender(s) Willingness Assessed to care for patient at home: Yes Family/Heating And Ventilating Tender(s) Readiness Assessed to care for patient at [...] Recieved By: patient Follow-up: Jolynn Pollard APRN [facility] Cardiology [address] [place] [address] [address], [place] [address] Go on 08/22/2025 Your cardiology appointment is on August 22 at 11am Please arrive 15 minutes early and bring UPDATED medication list. [address] [facility] [id number] Go on 06/22/2025 Your first appointment for your Warfarin/Coumadin management is this FridayJune 22 at 11:30am. Please report to [facility] front admission desk and tell them you are checking in to the Pharmacy Anticoagulation Clinic. The wheelage clerk will call the pharmacist who will meet you in the lobby and escort you to the clinic. Please bring all medications you are taking and your insurance card. If you have any issues please call [phone] ext: [phone] and then choose option 2. Discharge Transportation: Transportation Anticipated: family or friend will provide Transportation Home at Discharge: Family/Friend will Provide Follow Up Transport: Transportation Needed to Follow up Appoinments: Family/Friend will Provide Additional Comments: SW spoke with primary team this date who indicate the pt is medically stable for DC this date and does not require further [facility]-based care. Pt to DC home with , to transport. Covering RNCM [facility] to be delivered to bedside. No further SW concerns identified at this time. SW will continue to remain available and will follow up with DC planning and needs as appropriate. DIMPLE Osullivan * Discharge Summary - Angie Abarca APRN - 06/20/2025 9:40 AM EDT Hospitalization Admit Date/Time: 06/14/2025 5:18 AM Admitting Attending: Phillip Clark Discharge Date: 06/20/2025 Discharge Attending Physician: Phillip Clark MD PCP name and Address: Kamran Singh MD [address] [place] [address] / [place] [address] Referring provider name and address: No referring [...] Your Medications These medications were sent to [facility] - [place], [place] - [address] [facility] [address] [facility] [address] [place] [address] acetaminophen 325 MG tablet clopidogrel 75 MG [...] Center 07/07/2025 2:40 PM Phillip Clark MD [facility] Test Results Pending At Discharge N/A Pertinent [...] Plan Anticoagulation Plan Warfarin Pharmacist Managed?: No [facility] Warfarin Dosing Protocol Followed?: No Reason for Protocol Departure: CT Surgery Bridging Agent in Conjunction With Warfarin? : No INR Monitoring Frequency: Monitor INR daily Patient Education : Complete and documented Warfarin dosing and adjustment per CT surgery provider. Transitions of Care Outpatient provider managing warfarin after [facility] discharge: TBD - possibly clinic Recommended date for outpatient INR assessment: TBD - of note, enoxparin copay $0 for 7 day supply Will continue to follow patient's clinical progress daily. Libia Stevenson PharmD, [facility] Clinical Pharmacist - Cardiothoracic Surgery Available via [employer] * Progress Notes - Phillip Clark MD [...] Promote Comfort Flowsheets (Taken 06/19/20251704 by Vicente Hussein, HESHAM) Pain Management Interventions: medication (see MAR) Intervention: Provide Person-Centered Care Flowsheets (Taken 06/19/20251704 by Vicente Hussein, HESHAM) Trust Relationship/Rapport: care explained Problem: Infection Goal: [...] Elimination Flowsheets (Taken 06/19/20251704 by Vicente Hussein, HESHAM) Bowel Elimination Management: relaxation techniques promoted Bowel [...] Electrolyte Balance Flowsheets (Taken 06/19/20251704 by Vicente Hussein RN) Fluid/Electrolyte Management: fluids restricted fluids provided [...] Vomiting Flowsheets (Taken 06/19/20251704 by Vicente Hussein, HESHAM) Nausea/Vomiting Interventions: slow deep breathing encouraged Goal: [...] and Ventilation Flowsheets (Taken 06/19/20251704 by Vicente Hussein RN) Chest Tube Safety: suction checked Problem: Fall [...] Pain Management Plan Flowsheets (Taken 06/19/20251704 by Vicente Hussein, HESHAM) Pain Management Interventions: medication (see MAR) Intervention: [...] Ongoing, Progressing Intervention: Promote Activity and Functional [place] Flowsheets (Taken 06/19/20251704 by Vicente Hussein RN) Activity Assistance Provided: assistance, stand-by Adaptive Equipment Use: use encouraged Self-Care Promotion: independence encouraged Problem: Self-Care Deficit Goal: Improved Ability to Complete Activities of Daily Living Outcome: Ongoing, Progressing Intervention: Promote Activity and Functional [place] Flowsheets (Taken 06/19/20251704 by Vicente Hussein, RN) [...] Ongoing, Progressing Intervention: Promote Activity and Functional [place] Flowsheets (Taken 06/19/20251704) Activity Assistance Provided: assistance, [...] Hussein RN Outcome: Ongoing, Progressing 06/19/20251704 by iVcente Hussein RN Outcome: Ongoing, Progressing Intervention: Optimize [...] Bed (HOB) Positioning: HOB elevated Taken 06/19/2025 0345 by Lori Moilna RN Pressure Reduction Techniques: weight shift assistance [...] Ongoing, Progressing Intervention: Promote Activity and Functional [place]ill Flowsheets (Taken 06/19/20251704) Activity Assistance Provided: assistance, [...] therapeutic enoxaparin started 06/16 PM and stopped Any warfarin reversal given?: No Anticoagulation Assessment [...] Plan Anticoagulation Plan Warfarin Pharmacist Managed?: No [facility] Warfarin Dosing Protocol Followed?: No Reason for Protocol Departure: CT Surgery Bridging Agent in Conjunction With Warfarin? : No Goal PTT/anti-Xa: 2.5-3.5 INR Monitoring Frequency: Monitor INR daily Patient Education : Complete and documented Warfarin dosing and adjustment per CT surgery provider. Transitions of Care Outpatient provider managing warfarin after [facility] discharge: TBD - possibly clinic Recommended date [...] Acute blood loss anemia Hypoalbuminemia Pre-diabetes Assessment: Brdaley Forrest is a 69 y.o. male with a history of CAD with recent PCI, hypertension, hyperlipidemia, and obesity referred in consultation by Dr Signh in regards to aortic insufficiency and ascendingaortic [...] rhythm - continue warfarin CT surgery pager [phone] [1] acetaminophen, 650 mg, Oral, q4h DEMETRIUS [...] Care Review Outcome: Ongoing, Progressing Flowsheets Taken 06/19/2025344 Progress: improving Plan of Care Reviewed With: patient family Taken 06/18/2025 005 Outcome Evaluation: Plan of care discussed with [...] medication Intervention: Prevent Infection Flowsheets (Taken 06/19/2025 034) Infection Prevention: hand hygiene promoted personal protective [...] Intervention: Optimize Tolerance for Activity Flowsheets (Taken 06/19/2025344) Environmental Support: calm environment promoted rest periods encouraged Self-Care Promotion: independence encouraged Goal: Optimal Coping with Heart Surgery Outcome: Ongoing, Progressing Intervention: Support Psychosocial Response to Surgery Flowsheets (Taken 06/19/2025344) Supportive Measures: active listening utilized relaxation techniques promoted Family/Support System Care: caregiver stress acknowledged self-care encouraged support provided Goal: Absence of Bleeding Outcome: Ongoing, Progressing Intervention: Monitor and Manage Bleeding Flowsheets (Taken 06/19/2025 034) Bleeding Management: dressing monitored Goal: Effective Bowel [...] Ongoing, Progressing Intervention: Promote Activity and Functional [place] Flowsheets (Taken 06/19/2025344) Activity Assistance Provided: assistance, stand-by Self-Care Promotion: independence encouraged Problem: Self-Care Deficit Goal: Improved Ability to Complete Activities of Daily Living Outcome: Ongoing, Progressing Intervention: Promote Activity and Functional [place] Flowsheets (Taken 06/19/2025344) Activity Assistance Provided: assistance, [...] from the original note were not included. [id number] Tratamiento para contracciones ventriculares prematuras (CVP) Las [...] Confusi??n. Last Reviewed Date: 2024 00:00:00 ?? 1822-2241 [employer]. All rights reserved. This information is not intended as a substitute for professional medical care. Always follow your healthcare professional's instructions. * Gabriel Singh - Brittaney Dumas RN - 06/18/2025 6:29 PM EDT Images from the original note were not included. [id number] C??mo comprender las contracciones ventriculares prematuras (CVP) [...] se??al activa partes cercanas del coraz??n contraer. Barada permite que el coraz??n se comprima de [...] card??acos anteriores, el coraz??n expulsar?? muypoca mushtaq. Barada provoca aria sensaci??n de pausa entre latidos. El siguiente latido card??aco suele ser m??s bea, ya que la pausa lo permite que el coraz??n descanse y se llene de mushtaq. Barada lleva a aria sensaci??n de latido card??aco [...] port??til jameson unos d??as o incluso semanas. Barada puede ayudar a diagnosticar los CVP que [...] im??genes del coraz??n. ? An??lisis de mushtaq. Barada se hace para comprobar los electrolitos y concentraciones tiroideas. Last Reviewed Date: 2024 00:00:00 ?? 9533-2036 [employer]. All rights reserved. This information is not intended as a substitute for professional medical care. Always follow your healthcare professional's instructions. * Gabriel Singh - Brittaney Dumas RN - 06/18/2025 6:29 PM EDT Images from the original note were not included. [id number] Tratamiento para contracciones ventriculares prematuras (CVP) Las [...] Confusi??n. Last Reviewed Date: 2024 00:00:00 ?? 4937-4140 [employer]. All rights reserved. This information is not intended as a substitute for professional medical care. Always follow your healthcare professional's instructions. * Gabriel Singh - Brittaney Dumas RN - 06/18/2025 6:29 PM EDT Images from the original note were not included. [id number] C??mo comprender las contracciones ventriculares prematuras (CVP) [...] se??al activa partes cercanas del coraz??n contraer. Barada permite que el coraz??n se comprima de [...] card??acos anteriores, el coraz??n expulsar?? muypoca mushtaq. Barada provoca aria sensaci??n de pausa entre latidos. El siguiente latido card??aco suele ser m??s bea, ya que la pausa lo permite que el coraz??n descanse y se llene de mushtaq. Barada lleva a aria sensaci??n de latido card??aco [...] port??til jameson unos d??as o incluso semanas. Barada puede ayudar a diagnosticar los CVP que [...] im??genes del coraz??n. ? An??lisis de mushtaq. Barada se hace para comprobar los electrolitos y concentraciones tiroideas. Last Reviewed Date: 2024 00:00:00 ?? 4786-4129 [employer]. All rights reserved. This information is not intended as a substitute for professional medical care. Always follow your healthcare professional's instructions. * Gabriel Singh - Brittaney Dumas RN - 06/18/2025 6:28 PM EDT Images from the original note were not included. 11935 Treatment for Premature Ventricular Contractions (PVCs) Premature [...] confusion Last Reviewed Date: 2024 00:00:00 ?? [id number] [employer]. All rights reserved. This information is not intended as a substitute for professional medical care. Always follow your healthcare professional's instructions. * Gabriel Singh - Brittaney Dumas RN - 06/18/2025 6:28 PM EDT Images from the original note were not included. 26948 Understanding Premature Ventricular Contractions (PVCs) Premature ventricular [...] to 2 weeks. ? Insertable (or implantable) cardiac rehabilitation program director. This small device is implanted under the [...] levels. Last Reviewed Date: 2024 00:00:00 ?? 6261-3614 [employer]. All rights reserved. This information is not [...] Plan Anticoagulation Plan Warfarin Pharmacist Managed?: No [facility] Warfarin Dosing Protocol Followed?: No Bridging Agent in Conjunction With Warfarin? : Yes Ordered Agents: Enoxaparin Bridging Agent Dose: 70mg BID INR Monitoring Frequency: Monitor INR daily Patient Education : Complete and documented Warfarin dosing and adjustment per CT surgery provider. Transitions of Care Outpatient provider managing warfarin after [facility] discharge: TBD - possibly clinic Recommended date [...] Care Review Outcome: Ongoing, Progressing Flowsheets (Taken 06/18/202558 by Lori Molina, RN) Progress: improving Outcome [...] Ongoing, Progressing Intervention: Promote Activity and Functional [place]ill Flowsheets (Taken 06/18/202558) Activity Assistance Provided: assistance, 1 person Self-Care Promotion: independence encouraged Problem: Self-Care Deficit Goal: Improved Ability to Complete Activities of Daily Living Outcome: Ongoing, Progressing Intervention: Promote Activity and Functional [place]ill Flowsheets (Taken 06/18/202558) Activity Assistance Provided: assistance, [...] from the original note were not included. [id number] Warfarin IMPORTANT WARNING: Warfarin may cause severe [...] doctor or pharmacist will give you the pouncing lathe operator's patient information sheet (Medication Guide) when you begin treatment with warfarin and each time you refill your prescription. Read the information carefully and ask your doctor or pharmacist if you have any questions. You can also visit the Food and Drug Administration (FDA) website (https://www.fda.gov/downloads/Drugs/DrugSafety/zen879948.pdf) or the pouncing lathe operator's website to obtain the Medication Guide. Talk [...] Echinacea, garlic, Ginkgo biloba, ginseng, goldenseal, and Hodges's wort; omeprazole (Prilosec); famotidine (Pepcid AC); aspirin [...] amounts of vitamin K-containing food on a fhbb-lj-tsob basis. Do not eat large amounts of [...] be awakened, immediately call emergency services at 911. Symptoms of overdose may include the following: [...] of all of the prescription and nonprescription (tgeb-orb-slynwdq) medicines, vitamins, minerals, and dietary supplements you [...] or pharmacist about specific clinical use. The [employer] represents that the information provided hereunder was formulated with a reasonable standard of care, and in conformity with professional standards in the field. The [employer] makes no representations or warranties, express or implied, including, but not limited to, any implied warranty of merchantability and/or fitness for a particular purpose, with respect to such information and specifically disclaims all such warranties. Users are advised that decisions regarding drug therapy are complex medical decisions requiring the independent, informed decision of an appropriate health healthcare network pricing consultant, and the information is provided for informational purposes only. The entire monograph for a drug should be reviewed for a thorough understanding of the drug's actions, uses and side effects. The [employer] does not endorse or recommend the use of any drug.The information is not a substitute for medical care. AHFS?? Patient Medication Information?. ?? Copyright, 2023. The [employer]??, [address], [address], [place], [place]. All Rights Reserved. Duplication for commercial use must be authorized by [facility]. Selected Revisions: February 13, 2017. AHFS?? Patient Medication Information?. ?? Copyright, 2024 * Gabriel Baldwin - Sydni Munson RN - 06/17/2025 12:42 PM EDT Images from the original note were not included. 73154 Recovery From Heart Surgery: The First Few [...] stop Last Reviewed Date: 2024 00:00:00 ?? 7552-5653 [employer]. All rights reserved. This information is not [...] arms away from your body. * [facility] - Sydni Munson RN - 06/17/2025 12:42 PM EDT Images from the original note were not included. 46852 After Heart Valve Surgery For the first [...] headache Last Reviewed Date: 2023 00:00:00 ?? 2596-7632 [employer]. All rights reserved. This information is not intended as a substitute for professional medical care. Always follow your healthcare professional's instructions. * Discharge Instr - Other Orders - Sydni Munson RN - 06/17/2025 12:39 PM EDT Please arrive 30 minutes early for your appointment with Dr. Clark Prior to your appointment, go to the radiology department on the 1st floor of the [facility] near [facility] for a chest x-ray. Then go to [...] your incisions. Do NOT lift, push, or pack puller 5 pounds for six weeks. Do [...] Sydni Munson CT Surgery Nurse Navigator at [phone] Friday through Friday 7am- 3:30pm [facility] [phone] after 3:30 pm, weekends and holidays - ask for the CT surgeon conveyor line battery charger. * Progress Notes - Brooke Valdez PTA - 06/17/2025 11:58 AM EDT Physical Therapy Treatment Patient Name: Bradley Forrest Today's Date: 06/17/2025 Total Treatment Time: 39 min PT Discharge Recommendations: Home with assistance Equipment Recommended: Rollator Subjective The patient states, I am doing okay. Participants in Care Family/Caregiver Present: Yes Family/Caregiver: Spouse, Other (Specify) (sister and brother) Muck Miner Blasting: Not Applicable Presentation Oxygen: None (Room air) [...] sequencing. Bed Mobility Exam: Rolling/Turning Level of Estill: Minimum assist (75% patient effort) Physical/Nonphysical Assist: Verbal Cues, Set-up required Bed Mobility Exam: Scooting/Bridging Level of Estill: Minimum assist (75% patient's effort) (to scoot to edge of bed with cues to adhere to sternal precautions) Physical/Nonphysical Assist: Verbal Cues, Set-up required Bed Mobility Exam: Supine to Sit Level of Estill: Minimum assist (75% patient's effort) Physical/Nonphysical Assist: Verbal Cues, Set-up required, Additional assist utilized for safety Bed Mobility Exam: Sit to Supine Level of Estill: Minimum assist (75% patient's effort) Physical/Nonphysical Assist: Verbal Cues, Set-up required, Additional assist utilized for safety Transfers Transfer Intervention: Verbal cues provided for correct bilateral hand and foot placement during sit to stand transfers. Transfer Interventions: The patient stood at the sink for hygiene approximately 8-10 minutes with CGA of 1 person. 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 Level of Estill Adaptive Equipment Utilized Comments Feeding Grooming SBA Standing sinkside stood times 8 minutes in bathroom. Bathing Upper Body Dressing Lower Body Dressing Sock Level of Assistance: Moderate assistance, Minimal verbal cues Toileting SBA Toilet IADLs Health Management Community Re-Entry BALANCE Postural Appearance INTERVENTIONS Level of Estill Balance Support Comments Static Sit Standby assist [...] weight shifting to promote safety. Level of Estill Physical/Non-physical Assist Adaptive Equipment Utilized Rolling/ Turning [...] Plan Anticoagulation Plan Warfarin Pharmacist Managed?: No [facility] Warfarin Dosing Protocol Followed?: No Bridging Agent in Conjunction With Warfarin? : Yes Ordered Agents: Enoxaparin Bridging Agent Dose: 70mg BID INR Monitoring Frequency: Monitor INR daily Patient Education : Complete and documented Warfarin dosing and adjustment per CT surgery provider. Transitions of Care Outpatient provider managing warfarin after [facility] discharge: TBD - possibly clinic Recommended date [...] the video go to this web address: [email or web address] Or, scan this QR code with your smart phone ?? [facility] * Maria Esther Houston PharmD - 06/17/2025 9:21 AM EDT Images from the original note were not included. Warfarin: Your INR Goal - Video Understand what the INR test measures, and what your healthy INR level should be. To view the video go to this web address: https://bit.ly/3Zol0XQ Or, scan this QR code with your [...] the video go to this web address: https://bit.ly/0FU9Hsp Or, scan this QR code with your smart phone ?? [facility] * Maria Esther Houston A, PharmD - 06/17/2025 9:21 AM EDT Images [...] Certain other vegetables and fruits, including asparagus, [place] sprouts, and kiwifruit ? Certain soy products, such as natto (a traditional Cambodian dish of fermented soybeans) Some vegetable oils [...] reduced-fat cheese, served with a whole grain Portuguese muffin ? A grilled chicken sandwich on whole grain bread with raw spinach*, tomato slices, and mustard ? Oven-roasted fish served with steamed broccoli* and medley of whole grain pasta, carrots, onions,and mushrooms * Foods higher in vitamin K Last Reviewed Date: 2025 00:00:00 ?? [id number] The [employer]. All rights reserved. This information is not [...] the video go to this web address: [email or web address].Itugo/[email or web address] Or, scan this QR code with your [...] the video go to this web address: https://bit.Itugo/[email or web address] Or, scan this QR code with your smart phone ?? [facility] * Maria Esther Houston PharmD - 06/17/2025 9:21 AM EDT Images from the original note were not included. Warfarin and Food - Video Learn which foods can affect how your warfarin therapy is working. To view the video go to this web address: [email or web address].[email or web address] Or, scan this QR code with your smart phone ?? [facility] * [facility] - Maria Esther Kent PharmD - 06/17/2025 9:21 AM EDT Images from the original note were not included. [id number] Warfarin IMPORTANT WARNING: Warfarin may cause severe [...] doctor or pharmacist will give you the pouncing lathe operator's patient information sheet (Medication Guide) when you begin treatment with warfarin and each time you refill your prescription. Read the information carefully and ask your doctor or pharmacist if you have any questions. You can also visit the Food and Drug Administration (FDA) website (https://www.fda.gov/downloads/Drugs/DrugSafety/onf870341.pdf) or the pouncing lathe operator's website to obtain the Medication Guide. Talk [...] Echinacea, garlic, Ginkgo biloba, ginseng, goldenseal, and Hodges's wort; omeprazole (Prilosec); famotidine (Pepcid AC); aspirin [...] amounts of vitamin K-containing food on a msro-eb-mpem basis. Do not eat large amounts of [...] be awakened, immediately call emergency services at 901. Symptoms of overdose may include the following: [...] of all of the prescription and nonprescription (zjvh-bkv-beourwe) medicines, vitamins, minerals, and dietary supplements you [...] or pharmacist about specific clinical use. The [employer] represents that the information provided hereunder was formulated with a reasonable standard of care, and in conformity with professional standards in the field. The [employer] makes no representations or warranties, express or implied, including, but not limited to, any implied warranty of merchantability and/or fitness for a particular purpose, with respect to such information and specifically disclaims all such warranties. Users are advised that decisions regarding drug therapy are complex medical decisions requiring the independent, informed decision of an appropriate health healthcare network pricing consultant, and the information is provided for informational purposes only. The entire monograph for a drug should be reviewed for a thorough understanding of the drug's actions, uses and side effects. The [employer] does not endorse or recommend the use of any drug.The information is not a substitute for medical care. AHFS?? Patient Medication Information?. ?? Copyright, 2023. The [employer]??, [address], [address], [place], [place]. All Rights Reserved. Duplication for commercial use must be authorized by [facility]. Selected Revisions: February 13, 2017. AHFS?? [...] Ongoing, Progressing Intervention: Promote Activity and Functional Estill Flowsheets (Taken 06/17/2025108) Activity Assistance Provided: assistance, 1 person Self-Care Promotion: independence encouraged Problem: Self-Care Deficit Goal: Improved Ability to Complete Activities of Daily Living Outcome: Ongoing, Progressing Intervention: Promote Activity and Functional Estill Flowsheets (Taken 06/17/2025108) Activity Assistance Provided: assistance, [...] Not Progressing Goal: Absence of Bleeding 06/16/2025 1526 by Fariba Blanton RN Outcome: [...] Progressing Goal: Fluid and Electrolyte Balance 06/16/2025 1526 by Fariba Blanton RN Outcome: Ongoing, Progressing 06/16/2025 1526 by Fariba Blanton RN Outcome: Ongoing, Not Progressing Goal: Blood Glucose Level Within Target Range 06/16/2025 1526 by Fariba Blanton RN Outcome: [...] Blanton RN Outcome: Ongoing, Not Progressing Goal: Nausea and [...] Goal: Absence of Fall and Fall-Related Injury 06/16/20251525 by Fariba Blanton RN Outcome: Ongoing, Progressing 06/16/2025 152 by Fariba Blanton RN Outcome: Ongoing, Not Progressing Problem: Pain Acute Goal: Optimal Pain Control and Function 06/16/2025 152 by Fariba Blanton RN Outcome: Ongoing, Progressing 06/16/2025 1526 by Fariba Blanton RN Outcome: Ongoing, Not Progressing Problem: Mobility Impairment Goal: Optimal Mobility 06/16/2025 152 by Fariba Blanton RN Outcome: [...] Not Progressing Goal: Improved Oral Intake 06/16/2025 1526 by Fariba Blanton RN Outcome: Ongoing, Progressing 06/16/2025 1526 by Fariba Blanton RN Outcome: Ongoing, Not Progressing Goal: Optimal Pain Control and Function 06/16/2025 1526 by Fariba Blanton RN Outcome: Ongoing, Progressing 06/16/2025 1526 by Fariba Blanton RN Outcome: Ongoing, Not Progressing Goal: Skin Health and Integrity 06/16/2025 1526 by Fariba Blanton RN Outcome: [...] Note Bradley Forrest 69 y.o. male CSN: [id number] Admission: 06/14/2025 5:18 AM Primary Problem: Severe aortic regurgitation Anticipated Discharge Date: tbd Additional Comments: HESHAM HAIDER reviewed chart and met with primary team to discuss plan of care. Patient is not medically ready for discharge at this time, remove chest tube and continue ICU level of care. HESHAM HAIDER will continue to follow. Sangeeta Townsend RN [...] Problem(s): Weaning from mechanically assisted ventilation initiated ([facility]) (Rrnlqsrd59/20/2025) Arrived intubated and sedated post-op - fast [...] Edited by: Tello Spann MD at 06/16/2025 0963 Lines/Drains/Tubes: Patient Lines/Drains/Airways Status Active Active LDAs Name Placement date Placement time Site Days CVC Double Lumen 06/14/25 Right Internal jugular 06/14/25 0832 Internal jugular 2 Peripheral IV 06/14/25 Posterior;Right Hand 06/14/25 0620 Hand 2 Chest Tube Mediastinal 36 Fr 06/14/25 1327 Mediastinal 1 Urethral Catheter Temperature probe 16 Fr. 06/14/25 0822 -- 2 Arterial Line 06/14/25 Brachial 06/14/25 0808 Brachial 2 GCS: Maanda Coma Scale Score: 15 Review of Systems [...] post median sternotomy. Interval removal of the Ruidoso-Ganzcatheter, right IJ sheath remains in place with tip in the mid to distal SVC. No pneumothorax or pleural effusions. Ongoing interstitial edema. 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 Muck Miner Blasting (if applicable) OBJECTIVE & INTERVENTIONS PAIN Pain [...] ACTIVITY Treatment Minutes 24 TRANSFERS Level of Estill Physical/Non- physical Assist Adaptive Equipment Utilized Sit to Stand Contact guard Verbal Cues, Additional assist utilized for safety, 1 person + 1 person to manage equipment (verbal cuing for sternal precautions) Stand to sit Contact guard Verbal Cues, 1 person + 1 person to manage equipment Interventions BALANCE Postural Appearance Posture: Rounded shoulders Level of Estill Balance Support Interventions Static Sit Standby assist Feet supported Dynamic Sit Contact guard Feet supported Static Stand Standby assist Right upper extremity support, Left upper extremity support Pt with mild dizziness when coming to stand from sitting which subsided with roughly 30 seconds of static standing Dynamic Stand Standby assist Right upper extremity support, Left upper extremity support AMBULATION Level of Estill Distance Adaptive Equipment Utilized Ambulation Standby assist, [...] Plan Anticoagulation Plan Warfarin Pharmacist Managed?: No [facility] Warfarin Dosing Protocol Followed?: No Reason for Protocol Departure: CT Surgery Bridging Agent in Conjunction With Warfarin? : Yes Ordered Agents: Enoxaparin Bridging Agent Dose: Enoxaparin 70mg bid to start 10 pm INR Monitoring Frequency: Monitor INR daily Patient Education : Incomplete Warfarin dosing and adjustment per CT surgery provider. Transitions of Care Outpatient provider managing warfarin after [facility] discharge: TBD Recommended date for outpatient INR assessment: TBD Will continue to follow patient's clinical progress daily. Sy Fernández PharmD PGY-2 Cardiology Sports Leadership Instructor Available via Secure Chat * Progress Notes [...] Pain and Promote Comfort Flowsheets (Taken 06/15/2025 194) Pain Management Interventions: medication (see MAR) Intervention: [...] Intervention: Develop Pain Management Plan Flowsheets (Taken 06/15/2025 1948) Pain Management Interventions: [...] Ongoing, Progressing Intervention: Promote Activity and Functional Estill Flowsheets Taken 06/15/20251699 by Bony Thomas RN [...] Ongoing, Progressing Intervention: Promote Activity and Functional Estill Flowsheets Taken 06/15/2025 1700 by Bony Thomas RN Activity Assistance Provided: assistance, stand-by Taken 06/14/20252154 by Svetlana Reilly RN Self-Care Promotion: independence encouraged * Consults - Nat Singletary RD - 06/15/2025 2:23 PM EDTAssociated Order(s): IP CONSULT TO NUTRITION SERVICES Adult Nutrition Evaluation Note rBadley Forrest 69 y.o. 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) GI Symptoms: Nausea, Vomiting Edema: Generalized Allergies: [...] 30.07 Weight Evaluation: Obese-Class 1 (BMI 30-34.9) Lima Body Weight (kg): 67.3 Percent Lima Body Weight: 130 Adjusted Body Weight (kg): 72.4 Estimated Needs: Kcal/ K-28 Kcal Provided: 2337-3082 Metabolic Cart Study Results: Current Nutrition Intake: Diet Order: Adult Diet Diet Texture: Clear liquid Adult Carbohydrate Restriction: Consistent CHO 2 (9156-2306 Venkat, 80 g/meal) Fat Restriction: Cardiac Percent Meals Eaten (%): establishing Diet Experience and Nutrition History: Diet Education Provided: Will monitor Pertinent home medications: Gnosticism needs: Nutrition Focused Physical Exam: Physical exam performed on (date): 06/15 Temples (muscles): None Clavicle (muscle): None Shoulder (muscle): None Orbital (fat): None Triceps (fat): None Energy Intake: reported adequate [employer] INTELL[employer] Weight Loss: denies Assessment of Malnutrition: Malnutrition [...] Note Bradley Forrest 69 y.o. male CSN: [id number] Admission: 06/14/2025 5:18 AM Primary Problem: Severe aortic regurgitation Children'S Attendant reviewed chart and spoke with the patient at bedside to complete this Initial Case Management Assessment. PCP: Kamran Singh MD Emergency Contact: Extended Emergency Contact Information Primary Emergency Contact: Naheed Forrest Address: [address] [place] [address] [address]A [address] [place] [address] of [facility] Mobile Relation: Spouse Insurance: Primary Visit Coverage Payer Plan Sponsor Code Group Number Group Name MARY HERNANDEZ [facility] [id number] Primary Visit Coverage Subscriber Subscriber ID Subscriber Name Subscriber SSN Subscriber Address [id number] Bradley Forrest [id number] [place] [address] JITENDRA [facility] Secondary Visit Coverage Payer Plan Sponsor Code Group Number Group Name MEDICARE MEDICARE A & B Secondary Visit Coverage Subscriber Subscriber ID Subscriber Name Subscriber N Subscriber Address [id number] Bradley Forrest [id number] [place] [address] JITENDRA [facility] Patient information: Primary Caregiver: Self Support System: Immediate family Daily Living Activities: Functional Status: Independent Living Arrangements: Spouse/Significant other Type of Residence: Private residence, Single Level [address] [place] [address] Current DME: Equipment Currently Used at Home: [...] DME Provider: n/a Living Will/Advance Directive/Power of Head Swamper /Guardian: Unable to assess: No Have you [...] prior HH/O2/HD/Abx. PCP is Kamran Singh. Has [employer] insurance and uses [facility]. Family to transport and assist as [...] Plan Anticoagulation Plan Warfarin Pharmacist Managed?: No [facility] Warfarin Dosing Protocol Followed?: No Reason for Protocol Departure: CT Surgery Bridging Agent in Conjunction With Warfarin? : No INR Monitoring Frequency: Monitor INR daily Patient Education : Incomplete Warfarin dosing and adjustment per CT surgery provider. Transitions of Care Outpatient provider managing warfarin after [facility] discharge: TBD Recommended date for outpatient INR assessment: TBD Will continue to follow patient's clinical progress daily. Sy Fernández PharmD PGY-2 Cardiology Sports Leadership Instructor Available via Secure Chat * Assessment & [...] Problem(s): Weaning from mechanically assisted ventilation initiated ([facility]) (Plwljlec35/20/2025) Arrived intubated and sedated post-op - fast [...] Weaning from mechanically assisted ventilation initiated (CMS/HCC) (Fagpnfrv69/20/2025) Arrived intubated and sedated post-op - fast [...] 06/15/2025 Weaning from mechanically assisted ventilation initiated ([facility]) 06/14/2025 Diabetes 05/05/2025 Benign prostatic hyperplasia 05/05/2025 CAD (coronary artery disease) 04/14/2025 History of coronary angioplasty with insertion of stent 04/14/2025 Ascending aortic aneurysm ([facility]) 04/14/2025 Aortic valve regurgitation 04/14/2025 BMI [...] 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) Level of Mobility: Ambulatory- community Mobility Estill: Independent gait without device History of Falls: [...] Mobility Exam: Sit to Supine Level of Estill: Maximum assist (25% patient's effort) Physical/Nonphysical Assist: Verbal Cues, Maximal cues, Additional assist utilized for safety Transfers Transfer Exam: Sit to stand Level of Estill: Moderate assist (50% patient's effort) Physical/Nonphysical Assist: Verbal Cues, Moderate cues, Additional assist utilized for safety Assistive Device: Rollator Transfer Exam: Stand to Sit Level of Estill: Minimum assist (75% patient's effort) Physical/Nonphysical Assist: [...] activity. 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) Level of Mobility: Ambulatory- community Mobility Estill: Independent gait without device History of Falls: [...] Mobility Exam: Sit to Supine Level of Estill: Maximum assist (25% patient's effort) Physical/Nonphysical Assist: Verbal Cues, Maximal cues, Additional assist utilized for safety Transfers Transfer Exam: Sit to stand Level of Estill: Moderate assist (50% patient's effort) Physical/Nonphysical Assist: Verbal Cues, Moderate cues, Additional assist utilized for safety Assistive Device: Rollator Transfer Exam: Stand to Sit Level of Estill: Minimum assist (75% patient's effort) Physical/Nonphysical Assist: [...] continued education to improve carryover. Standardized Assessments [facility] 6-Click Daily Activities Help from Other: Don/Doff Regular Lower Body Clothings: A lot Help From Other: Bathing: A lot Help From Other: Toileting: A lot Help From Other: Don/Doff Upper Body Clothings: Little Help From Other: Grooming: Little Help From Other: Eating Meals: None [facility] 6 Click - Daily Activities Score: 16 [...] Right 06/14/25 0832 Internal jugular 1 GCS: Amanda Coma Scale Score: 15 Review of Systems [...] of NG tube. Right internal jugular approach Ruidoso-Shira catheter and mediastinal drain in unchanged position. [...] Problem(s): Weaning from mechanically assisted ventilation initiated ([facility]) (Jkftaavi99/20/2025) Arrived intubated and sedated post-op - fast [...] for analgesia prior to leaving the OR. [facility] services were consulted for management [...] 1.4 and on Epi .03, pressure support /5 Edited by: Balta Washington, SAMPLE MOUNTER, DNP at 06/14/2025 2253 Lines/Drains/Tubes: Patient Lines/Drains/Airways [...] Ongoing, Progressing Intervention: Promote Activity and Functional Estill Flowsheets (Taken 06/14/20252154) Activity Assistance Provided: assistance, [...] promoted * Assessment & Plan Note - Avritt, Belle G, MD - 06/14/2025 6:01 PM EDT Associated [...] Problem(s): Weaning from mechanically assisted ventilation initiated ([facility]) (Uycvclzj65/20/2025) Arrived intubated and sedated post-op - fast [...] for analgesia prior to leaving the OR. [facility] services were consulted for management [...] 06/14/25 1327 Mediastinal less than 1 NG/OG Tensas Sump Orogastric 18 Fr Center mouth 06/14/25 [...] Reviewed and otherwise non-contributory. Allergies: Allergies[6] GCS: Amanda Coma Scale Score: 15 Review of Systems [...] OTHER SURGICAL HISTORY N/A Knee arthroscopy from [facility] SHOULDER SURGERY Right [3] No current facility-administered medications on file prior to encounter. Current Outpatient Medications on File Prior to Encounter Medication Sig Dispense Refill acetaminophen (Tylenol) 325 MG tablet Take 2 tablets by mouth every morning. Under [place] law, monthly prescriptions (30 days) can be refilled at 25 days and three-month prescriptions (90 days) at 80 days. Please contact the insurance company with questions if refills are denied. (Patient taking differently: Take 2 tablets by mouth every 4 hours as needed. Under [place] law, monthly prescriptions (30 days) can be [...] Review Outcome: Ongoing, Progressing Flowsheets (Taken 06/14/2025 0622 by Jimmie Taylor, RN) Plan of Care Reviewed With: patient spouse Goal: Patient-Specific Goal (Individualized) Outcome: Ongoing, Progressing Goal: Absence of Hospital-Acquired Illness or Injury Outcome: Ongoing, Progressing Intervention: Identify and Manage Fall Risk Flowsheets (Taken 06/14/2025 1718) Safety Promotion/Fall Prevention: activity supervised Intervention: Prevent Skin Injury Flowsheets Taken 06/14/2025 1718 Skin Protection: pulse oximeter probe site changed Taken 06/14/2025 1600 Body Position: turned Intervention: Prevent and Manage VTE (Venous Thromboembolism) Risk Flowsheets (Taken 06/14/2025 1600) VTE Prevention/Management: medication Intervention: Prevent Infection Flowsheets (Taken 06/14/2025 1718) Infection Prevention: other (see comments) Goal: Optimal [...] Saint Jose mechanical prosthesis. Date: 06/14/25 Location: [facility] OR Name: Bradley Forrest, : 1955, Diagnoses: Pre-op Diagnosis Severe aortic regurgitation Post-op Diagnosis Severe aortic regurgitation Coronary artery disease due to calcified coronary lesion History of coronary angioplasty with insertion of stent Left ventricular enlargement Procedure(s): Median sternotomy, aortic valve replacement using a 25 mm Saint Jose mechanical prosthesis. Attending Surgeon(s): * Phillip Clark - Primary Pacs Specialist(s): * Turner Pablo MD - Fellow Anesthesia: General ASA: IV Blood Administration: Blood Product Administration History None Estimated Blood Loss: 150 mL Drains: Chest Tube Mediastinal 36 Fr (Active) Function -20 cm H2O 06/14/25 1600 Chest Tube Air Leak No 06/14/25 1600 Patency Intervention Tip/tilt 06/14/25 1600 Drainage Description Dark red 06/14/25 1600 NG/OG Tensas Sump Orogastric 18 Fr Center mouth (Active) Urethral Catheter Temperature probe 16 Fr. (Active) Implants Type Name Action Serial No. GRAFT PTCH [id number] FELT - [id number] Implanted VALVE ATRIAL 25MM ROTATABL CUF STD PTFE - [id number] - [id number] Implanted [id number] Specimen: Specimens ID Source Frozen? 1 Heart [...] stenting of his coronaries. In addition his clock and watch hands painter, Jd Duvall, had done an echocardiogram which [...] was induced, monitoring lines were placed, a Ruidoso-Shira catheter was floated into position and a [...] Prolene and a tack seal. One 36 Iraqi chest tube was placed. Chest tubes and pacing wires were secured to the anterior abdominal wall. The sternum was reapproximated with #7 fvihre-us-tztuj stainless steel wires, the fasciawas closed with [...] 2 tablets by mouth every morning. Under [place] law, monthly prescriptions (30 days) can be refilled at 25 days and three-month prescriptions (90 days) at 80 days. Please contact the insurance company with questions if refills are denied. Patient taking differently: Take 2 tablets by mouth every 4 hours as needed. Under [place] law, monthly prescriptions (30 days) can be [...] PM EST Appointment Cardiac Imaging [address] [place] [address] 07/20/2026 1:40 PM EST Office Visit [facility] [address], [address] [place] [address] Phillip Clark MD [address] [place] [address] Pending Results Name Type Priority Associated Diagnoses [...] PANEL, PLASMA Routine 06/16/2025 5:35 PM EDT [place] CRITICAL CARE, E/M 30-74 MINUTES Routine 06/16/2025 [...] PEP THERAPY Routine 06/15/2025 12:00 PM EDT TX CRITICAL CARE, E/M 30-74 MINUTES Routine 06/15/2025 [...] 1 VIEW Routine 06/15/2025 2:53 AM EDT TX CRITICAL CARE, ADDL 30 MIN Routine 06/15/2025 12:21 AM EDT Other secondary hypertension [place] CRITICAL CARE, ADDL 30 MIN Routine 06/15/2025 [...] PANEL, ARTERIAL Routine 06/14/2025 6:47 PM EDT TX CRITICAL CARE, E/M 30-74 MINUTES Routine 06/14/2025 [...] UNSOLICITED RESULTS Routine 06/14/2025 8:13 AM EDT TX -AORT GRF W/CARD BYP F/AORTIC DISSECTION 06/14/2025 [...] Idania Edmonds MD on 06/20/2025 9:42 AM Phillip Clark MD IMG XR PROCEDURES Final Resu lt * (ABNORMAL) Basic metabolic panel (06/20/2025 1:52 AM EDT) Glucose, Plasma 107(H) 74 - 99 mg/dL 06/20/2025 2:47 AM EDT [facility] BUN, Plasma 22 8 - 23 mg/dL 06/20/2025 2:47 AM EDT [facility] Creatinine, Plasma 0.85 0.70 - 1.20 mg/dL 06/20/2025 2:47 AM EDT [facility] BUN/Creatinine Ratio 26 06/20/2025 2:47 AM EDT [facility] Sodium, Plasma 131(L) 136 - 145 mmol/L 06/20/2025 2:47 AM EDT [facility] Potassium, Plasma 4.0 3.6 - 4.9 mmol/L 06/20/2025 2:47 AM EDT [facility] Chloride, Plasma 102 97 - 107 mmol/L 06/20/2025 2:47 AM EDT [facility] CO2, Plasma 24 22 - 29 mmol/L 06/20/2025 2:47 AM EDT [facility] Anion Gap 5(L) 6 - 16 mmol/L 06/20/2025 2:47 AM EDT [facility] Total Calcium, Plasma 7.9(L) 8.9 - 10.2 mg/dL 06/20/2025 2:47 AM EDT [facility] eGFRcr 94.1 mL/min/1.7 3m*2 06/20/2025 2:47 AM EDT [facility] Comment:Reported eGFRcr in m L/min/1.73m2 is based the CKD-EPI 2020 equation that does not use a race coefficient. Blood Venous blood specimen / Unknown Venipuncture / Unknown 06/20/2025 1:52 AM EDT 06/20/2025 1:59 AM EDT us Phillip Clark MD LAB BLOOD ORDERABLES Final R esult [facility] [address] [place] [address] * Phosphorus (06/20/2025 1:52 AM EDT) Phosphorus, Plasma 2.8 2.5 - 4.5 mg/dL 06/20/2025 2:23 AM EDT [facility] Blood Venous blood specimen / Unknown Venipuncture / Unknown 06/20/2025 1:52 AM EDT 06/20/2025 1:59 AM EDT Phillip Clark MD LAB BLOOD ORDERABLES Final R esult Performing Organization Address City/[facility]/ZIP Co de Phone Number [facility] [address] [place] [address] * (ABNORMAL) Protime-INR (06/20/2025 1:52 AM EDT) Prothrombin Time 30.4(H) 12.0 - 14.3 sec LAB COAGULATION METHOD 06/20/2025 2:29 AM EDT [facility] INR 2.9(H) 0.9 - 1.1 LAB COAGULATION METHOD 06/20/2025 2:29 AM EDT [facility] Blood Venous blood specimen / Unknown Venipuncture / Unknown 06/20/2025 1:52 AM EDT 06/20/2025 1:59 AM EDT Narrative [facility] - 06/20/2025 2:29 AM EDT OPTIMAL INR RANGES FOR PATIENT ON ORAL ANTICOAGULANT THERAPY Prevention of venous thromboembolism INR 2.0 to 3.0 In patients with heart disease: Atrial fibrillation INR 2.0 to 3.0 Valvular heart disease INR 2.0 to 3.0 Tissue heart valves INR 2.0 to 3.0 Mechanical prosthetic valves INR 2.5 to 3.5 Prevention of recurrent MA INR 2.5 to 3.5 us Phillip Clark MD LAB BLOOD ORDERABLES Final R esult [facility] [address] [place] [address] * Magnesium (06/20/2025 1:52 AM EDT) Magnesium, Plasma 2.2 1.9 - 2.4 mg/dL 06/20/2025 2:23 AM EDT [facility] Blood Venous blood specimen / Unknown Venipuncture / Unknown 06/20/2025 1:52 AM EDT 06/20/2025 1:59 AM EDT us Phillip Clark MD LAB BLOOD ORDERABLES Final R esult [facility] [address] [place] [address] * (ABNORMAL) CBC (06/20/2025 1:52 AM EDT) WBC Count 6.95 3.70 - 10.30 10*3/uL LAB HEMATOLOGY METHOD 06/20/2025 2:07 AM EDT [facility] RBC Count 3.73(L) 4.60 - 6.10 10*6/uL LAB HEMATOLOGY METHOD 06/20/2025 2:07 AM EDT [facility] HGB 10.4(L) 13.7 - 17.5 g/dL LAB HEMATOLOGY METHOD 06/20/2025 2:07 AM EDT [facility] HCT 31.9(L) 40.0 - 51.0 % LAB HEMATOLOGY METHOD 06/20/2025 2:07 AM EDT [facility] Platelet Count 187 155 - 369 10*3/uL LAB HEMATOLOGY METHOD 06/20/2025 2:07 AM EDT [facility] MCV 86 79 - 98 fL LAB HEMATOLOGY METHOD 06/20/2025 2:07 AM EDT [facility] MCH 27.9 26.0 - 32.0 pg LAB HEMATOLOGY METHOD 06/20/2025 2:07 AM EDT [facility] MCHC 32.6 30.7 - 35.5 g/dL LAB HEMATOLOGY METHOD 06/20/2025 2:07 AM EDT [facility] RDW 14.8(H) 11.5 - 14.5 % LAB HEMATOLOGY METHOD 06/20/2025 2:07 AM EDT [facility] MPV 10.2 8.8 - 12.5 fL LAB HEMATOLOGY METHOD 06/20/2025 2:07 AM EDT [facility] nRBC 0.0 <=0.0 per 100 WBCs LAB HEMATOLOGY METHOD 06/20/2025 2:07 AM EDT [facility] Blood Venous blood specimen / Unknown Venipuncture / Unknown 06/20/2025 1:52 AM EDT 06/20/2025 1:59 AM EDT Phillip Clark MD LAB BLOOD ORDERABLES Final R esult [facility] [address] [place] [address] * PERIPHERAL IV (SMART[employer] LINK) (06/20/2025 1:47 [...] ECG Atrial Rate 85 BPM MUSE ECG TX Interval 176 ms MUSE ECG QRSD Interval 110 ms MUSE ECG QT Interval 402 ms MUSE ECG QTC Interval 478 ms MUSE ECG P [place] 43 degrees MUSE ECG R [place] -30 degrees MUSE ECG T Wave [place] 36 degrees MUSE ECG Diagnosis Poor data quality, interpretation may be adversely affected MUSE ECG Diagnosis Sinus rhythm with premature supraventricular complexes and with occasional premature ventricular complexes MUSE ECG Diagnosis Left axis deviation MUSE ECG Diagnosis Poor R-wave progression MUSE ECG Diagnosis Abnormal ECG MUSE ECG Diagnosis Recommend repeat ECG MUSE ECG Diagnosis MUSE ECG Diagnosis Confirmed by Aman Coe ([id number]) on 06/19/2025 1:33:10 PM MUSE ECG 06/19/2025 12:4 9 PM EDT 06/19/2025 1:33 PM EDT us Barbara MARIE ECG ORDERABLES Final Resul t MUSE ECG * (ABNORMAL) Basic metabolic panel (06/19/2025 2:38 AM EDT) Glucose, Plasma 102(H) 74 - 99 mg/dL 06/19/2025 4:10 AM EDT [facility] BUN, Plasma 25(H) 8 - 23 mg/dL 06/19/2025 4:10 AM EDT [facility] Creatinine, Plasma 1.02 0.70 - 1.20 mg/dL 06/19/2025 4:10 AM EDT [facility] BUN/Creatinine Ratio 25 06/19/2025 4:10 AM EDT [facility] Sodium, Plasma 134(L) 136 - 145 mmol/L 06/19/2025 4:10 AM EDT [facility] Potassium, Plasma 4.6 3.6 - 4.9 mmol/L 06/19/2025 4:10 AM EDT [facility] Comment:Hemolyzed - Potassiu m may be falsely elevated by approximately 0.4-0.7 mmol/L. Chloride, Plasma 102 97 - 107 mmol/L 06/19/2025 4:10 AM EDT [facility] CO2, Plasma 23 22 - 29 mmol/L 06/19/2025 4:10 AM EDT [facility] Anion Gap 9 6 - 16 mmol/L 06/19/2025 4:10 AM EDT [facility] Total Calcium, Plasma 8.4(L) 8.9 - 10.2 mg/dL 06/19/2025 4:10 AM EDT [facility] eGFRcr 79.6 mL/min/1.7 3m*2 06/19/2025 4:10 AM EDT [facility] Comment:Reported eGFRcr in m L/min/1.73m2 is based the CKD-EPI 2020 equation that does not use a race coefficient. Blood Venous blood specimen / Unknown Venipuncture / Unknown 06/19/2025 2:38 AM EDT 06/19/2025 2:54 AM EDT us Phillip Clark MD LAB BLOOD ORDERABLES Final R esult Performing Organization Address City/[facility]/ZIP Co de Phone Number [facility] [address] [place] [address] * Phosphorus (06/19/2025 2:38 AM EDT) Phosphorus, Plasma 3.6 2.5 - 4.5 mg/dL 06/19/2025 4:10 AM EDT [facility] Blood Venous blood specimen / Unknown Venipuncture / Unknown 06/19/2025 2:38 AM EDT 06/19/2025 2:54 AM EDT us Phillip Clark MD LAB BLOOD ORDERABLES Final R esult Performing Organization Address City/[facility] de Phone Number [facility] [address] [place] [address] * (ABNORMAL) Protime-INR (06/19/2025 2:38 AM EDT) Prothrombin Time 26.3(H) 12.0 - 14.3 sec LAB COAGULATION METHOD 06/19/2025 3:09 AM EDT [facility] INR 2.4(H) 0.9 - 1.1 LAB COAGULATION METHOD 06/19/2025 3:09 AM EDT [facility] Blood Venous blood specimen / Unknown Venipuncture / Unknown 06/19/2025 2:38 AM EDT 06/19/2025 2:54 AM EDT Narrative [facility] - 06/19/2025 3:09 AM EDT OPTIMAL INR RANGES FOR PATIENT ON ORAL ANTICOAGULANT THERAPY Prevention of venous thromboembolism INR 2.0 to 3.0 In patients with heart disease: Atrial fibrillation INR 2.0 to 3.0 Valvular heart disease INR 2.0 to 3.0 Tissue heart valves INR 2.0 to 3.0 Mechanical prosthetic valves INR 2.5 to 3.5 Prevention of recurrent MA INR 2.5 to 3.5 us Phillip Clark MD LAB BLOOD ORDERABLES Final R esult [facility] [address] [place] [address] * Magnesium (06/19/2025 2:38 AM EDT) [facility] Magnesium, Plasma 2.4 1.9 - 2.4 mg/dL 06/19/2025 4:10 AM EDT [facility] Blood Venous blood specimen / Unknown Venipuncture / Unknown 06/19/2025 2:38 AM EDT 06/19/2025 2:54 AM EDT Phillip Clark MD LAB BLOOD ORDERABLES Final R esult Performing Organization Address City/[facility]/ZIP Co de Phone Number [facility] [address] [place] [address] * (ABNORMAL) CBC (06/19/2025 2:38 AM EDT) [facility] WBC Count 6.94 3.70 - 10.30 10*3/uL LAB HEMATOLOGY METHOD 06/19/2025 3:17 AM EDT [facility] RBC Count 4.12(L) 4.60 - 6.10 10*6/uL LAB HEMATOLOGY METHOD 06/19/2025 3:17 AM EDT [facility] HGB 11.5(L) 13.7 - 17.5 g/dL LAB HEMATOLOGY METHOD 06/19/2025 3:17 AM EDT [facility] HCT 35.7(L) 40.0 - 51.0 % LAB HEMATOLOGY METHOD 06/19/2025 3:17 AM EDT [facility] Platelet Count 165 155 - 369 10*3/uL LAB HEMATOLOGY METHOD 06/19/2025 3:17 AM EDT [facility] MCV 87 79 - 98 fL LAB HEMATOLOGY METHOD 06/19/2025 3:17 AM EDT [facility] MCH 27.9 26.0 - 32.0 pg LAB HEMATOLOGY METHOD 06/19/2025 3:17 AM EDT [facility] MCHC 32.2 30.7 - 35.5 g/dL LAB HEMATOLOGY METHOD 06/19/2025 3:17 AM EDT [facility] RDW 14.8(H) 11.5 - 14.5 % LAB HEMATOLOGY METHOD 06/19/2025 3:17 AM EDT [facility] MPV 10.6 8.8 - 12.5 fL LAB HEMATOLOGY METHOD 06/19/2025 3:17 AM EDT [facility] nRBC 0.0 <=0.0 per 100 WBCs LAB HEMATOLOGY METHOD 06/19/2025 3:17 AM EDT [facility] Blood Venous blood specimen / Unknown Venipuncture / Unknown 06/19/2025 2:38 AM EDT 06/19/2025 2:54 AM EDT us Phillip Clark MD LAB BLOOD ORDERABLES Final R esult [facility] [address] [place] [address] * XR Chest 1 View (06/19/2025 1:50 [...] - 99 mg/dL 06/18/2025 2:17 AM EDT [facility] BUN, Plasma 18 8 - 23 mg/dL 06/18/2025 2:17 AM EDT [facility] Creatinine, Plasma 0.82 0.70 - 1.20 mg/dL 06/18/2025 2:17 AM EDT [facility] BUN/Creatinine Ratio 22 06/18/2025 2:17 AM EDT [facility] Sodium, Plasma 134(L) 136 - 145 mmol/L 06/18/2025 2:17 AM EDT [facility] Potassium, Plasma 3.7 3.6 - 4.9 mmol/L 06/18/2025 2:17 AM EDT [facility] Chloride, Plasma 100 97 - 107 mmol/L 06/18/2025 2:17 AM EDT [facility] CO2, Plasma 26 22 - 29 mmol/L 06/18/2025 2:17 AM EDT [facility] Anion Gap 8 6 - 16 mmol/L 06/18/2025 2:17 AM EDT [facility] Total Calcium, Plasma 8.1(L) 8.9 - 10.2 mg/dL 06/18/2025 2:17 AM EDT [facility] eGFRcr 95.1 mL/min/1.7 3m*2 06/18/2025 2:17 AM EDT [facility] Comment:Reported eGFRcr in m L/min/1.73m2 is based the CKD-EPI 2020 equation that does not use a race coefficient. Blood Blood sample taken from central line / Unknown Venipuncture / Unknown 06/18/2025 1:43 AM EDT 06/18/2025 1:48 AM EDT us Phillip Clark MD LAB BLOOD ORDERABLES Final R esult [facility] [address] [place] [address] * Phosphorus (06/18/2025 1:43 AM EDT) Pathologist [facility] Phosphorus, Plasma 2.6 2.5 - 4.5 mg/dL 06/18/2025 2:17 AM EDT [facility] Blood Blood sample taken from central line / Unknown Venipuncture / Unknown 06/18/2025 1:43 AM EDT 06/18/2025 1:48 AM EDT Phillip Clark MD LAB BLOOD ORDERABLES Final R esult Performing Organization Address [facility] Co de Phone Number [facility] [address] [place] [address] * (ABNORMAL) Protime-INR (06/18/2025 1:43 AM EDT) Prothrombin Time 25.2(H) 12.0 - 14.3 sec LAB COAGULATION METHOD 06/18/2025 2:07 AM EDT [facility] INR 2.3(H) 0.9 - 1.1 LAB COAGULATION METHOD 06/18/2025 2:07 AM EDT [facility] Blood Blood sample taken from central line / Unknown Venipuncture / Unknown 06/18/2025 1:43 AM EDT 06/18/2025 1:48 AM EDT Narrative [facility] - 06/18/2025 2:07 AM EDT OPTIMAL INR RANGES FOR PATIENT ON ORAL ANTICOAGULANT THERAPY Prevention of venous thromboembolism INR 2.0 to 3.0 In patients with heart disease: Atrial fibrillation INR 2.0 to 3.0 Valvular heart disease INR 2.0 to 3.0 Tissue heart valves INR 2.0 to 3.0 Mechanical prosthetic valves INR 2.5 to 3.5 Prevention of recurrent MA INR 2.5 to 3.5 Phillip Clark MD LAB BLOOD ORDERABLES Final R esult Performing Organization Address City/[facility] Co de Phone Number [facility] [address] [place] [address] * Magnesium (06/18/2025 1:43 AM EDT) Magnesium, Plasma 2.3 1.9 - 2.4 mg/dL 06/18/2025 2:17 AM EDT [facility] Blood Blood sample taken from central line / Unknown Venipuncture / Unknown 06/18/2025 1:43 AM EDT 06/18/2025 1:48 AM EDT Phillip Clark MD LAB BLOOD ORDERABLES Final R esult [facility] [address] [place] [address] * (ABNORMAL) CBC (06/18/2025 1:43 AM EDT) WBC Count 8.51 3.70 - 10.30 10*3/uL LAB HEMATOLOGY METHOD 06/18/2025 1:54 AM EDT [facility] RBC Count 3.67(L) 4.60 - 6.10 10*6/uL LAB HEMATOLOGY METHOD 06/18/2025 1:54 AM EDT [facility] HGB 10.6(L) 13.7 - 17.5 g/dL LAB HEMATOLOGY METHOD 06/18/2025 1:54 AM EDT [facility] HCT 31.2(L) 40.0 - 51.0 % LAB HEMATOLOGY METHOD 06/18/2025 1:54 AM EDT [facility] Platelet Count 121(L) 155 - 369 10*3/uL LAB HEMATOLOGY METHOD 06/18/2025 1:54 AM EDT [facility] MCV 85 79 - 98 fL LAB HEMATOLOGY METHOD 06/18/2025 1:54 AM EDT [facility] MCH 28.9 26.0 - 32.0 pg LAB HEMATOLOGY METHOD 06/18/2025 1:54 AM EDT [facility] MCHC 34.0 30.7 - 35.5 g/dL LAB HEMATOLOGY METHOD 06/18/2025 1:54 AM EDT [facility] RDW 14.7(H) 11.5 - 14.5 % LAB HEMATOLOGY METHOD 06/18/2025 1:54 AM EDT [facility] MPV 10.4 8.8 - 12.5 fL LAB HEMATOLOGY METHOD 06/18/2025 1:54 AM EDT [facility] nRBC 0.0 <=0.0 per 100 WBCs LAB HEMATOLOGY METHOD 06/18/2025 1:54 AM EDT [facility] Blood Blood sample taken from central line / Unknown Venipuncture / Unknown 06/18/2025 1:43 AM EDT 06/18/2025 1:48 AM EDT us Phillip Clark MD LAB BLOOD ORDERABLES Final R esult [facility] [address] [place] [address] * XR Chest 1 View (06/17/2025 3:14 [...] - 99 mg/dL 06/17/2025 12:54 AM EDT [facility] BUN, Plasma 15 8 - 23 mg/dL 06/17/2025 12:54 AM EDT [facility] Creatinine, Plasma 0.81 0.70 - 1.20 mg/dL 06/17/2025 12:54 AM EDT [facility] BUN/Creatinine Ratio 19 06/17/2025 12:54 AM EDT [facility] Sodium, Plasma 133(L) 136 - 145 mmol/L 06/17/2025 12:54 AM EDT [facility] Potassium, Plasma 3.9 3.6 - 4.9 mmol/L 06/17/2025 12:54 AM EDT [facility] Chloride, Plasma 98 97 - 107 mmol/L 06/17/2025 12:54 AM EDT [facility] CO2, Plasma 25 22 - 29 mmol/L 06/17/2025 12:54 AM EDT [facility] Anion Gap 10 6 - 16 mmol/L 06/17/2025 12:54 AM EDT [facility] Total Calcium, Plasma 8.1(L) 8.9 - 10.2 mg/dL 06/17/2025 12:54 AM EDT [facility] eGFRcr 95.4 mL/min/1.7 3m*2 06/17/2025 12:54 AM EDT [facility] Comment:Reported eGFRcr in m L/min/1.73m2 is based the CKD-EPI 2020 equation that does not use a race coefficient. Blood Blood sample taken from central line / Unknown Venipuncture / Unknown 06/17/2025 12:17 AM EDT 06/17/2025 12:24 AM EDT Phillip Clark MD LAB BLOOD ORDERABLES Final R esult [facility] [address] [place] [address] * Phosphorus (06/17/2025 12:17 AM EDT) Phosphorus, Plasma 2.9 2.5 - 4.5 mg/dL 06/17/2025 12:54 AM EDT [facility] Blood Blood sample taken from central line / Unknown Venipuncture / Unknown 06/17/2025 12:17 AM EDT 06/17/2025 12:24 AM EDT us Phillip Clark MD LAB BLOOD ORDERABLES Final R esult Performing Organization Address [facility] Co de Phone Number [facility] [address] [place] [address] * (ABNORMAL) Protime-INR (06/17/2025 12:17 AM EDT) Prothrombin Time 18.7(H) 12.0 - 14.3 sec LAB COAGULATION METHOD 06/17/2025 1:16 AM EDT [facility] INR 1.5(H) 0.9 - 1.1 LAB COAGULATION METHOD 06/17/2025 1:16 AM EDT [facility] Blood Blood sample taken from central line / Unknown Venipuncture / Unknown 06/17/2025 12:17 AM EDT 06/17/2025 12:24 AM EDT Narrative [facility] - 06/17/2025 1:16 AM EDT OPTIMAL INR RANGES FOR PATIENT ON ORAL ANTICOAGULANT THERAPY Prevention of venous thromboembolism INR 2.0 to 3.0 In patients with heart disease: Atrial fibrillation INR 2.0 to 3.0 Valvular heart disease INR 2.0 to 3.0 Tissue heart valves INR 2.0 to 3.0 Mechanical prosthetic valves INR 2.5 to 3.5 Prevention of recurrent MA INR 2.5 to 3.5 us Phillip Clark MD LAB BLOOD ORDERABLES Final R esult Performing Organization Address [facility] Co de Phone Number [facility] [address] [place] [address] * Magnesium (06/17/2025 12:17 AM EDT) Magnesium, Plasma 2.3 1.9 - 2.4 mg/dL 06/17/2025 12:54 AM EDT [facility] Blood Blood sample taken from central line / Unknown Venipuncture / Unknown 06/17/2025 12:17 AM EDT 06/17/2025 12:24 AM EDT us Phillip Clark MD LAB BLOOD ORDERABLES Final R esult [facility] [address] [place] [address] * (ABNORMAL) CBC (06/17/2025 12:17 AM EDT) WBC Count 10.83(H) 3.70 - 10.30 10*3/uL LAB HEMATOLOGY METHOD 06/17/2025 12:32 AM EDT [facility] RBC Count 4.08(L) 4.60 - 6.10 10*6/uL LAB HEMATOLOGY METHOD 06/17/2025 12:32 AM EDT [facility] HGB 11.3(L) 13.7 - 17.5 g/dL LAB HEMATOLOGY METHOD 06/17/2025 12:32 AM EDT [facility] HCT 35.0(L) 40.0 - 51.0 % LAB HEMATOLOGY METHOD 06/17/2025 12:32 AM EDT [facility] Platelet Count 116(L) 155 - 369 10*3/uL LAB HEMATOLOGY METHOD 06/17/2025 12:32 AM EDT [facility] MCV 86 79 - 98 fL LAB HEMATOLOGY METHOD 06/17/2025 12:32 AM EDT [facility] MCH 27.7 26.0 - 32.0 pg LAB HEMATOLOGY METHOD 06/17/2025 12:32 AM EDT [facility] MCHC 32.3 30.7 - 35.5 g/dL LAB HEMATOLOGY METHOD 06/17/2025 12:32 AM EDT [facility] RDW 15.1(H) 11.5 - 14.5 % LAB HEMATOLOGY METHOD 06/17/2025 12:32 AM EDT [facility] MPV 10.3 8.8 - 12.5 fL LAB HEMATOLOGY METHOD 06/17/2025 12:32 AM EDT [facility] nRBC 0.0 <=0.0 per 100 WBCs LAB HEMATOLOGY METHOD 06/17/2025 12:32 AM EDT [facility] Blood Blood sample taken from central line / Unknown Venipuncture / Unknown 06/17/2025 12:17 AM EDT 06/17/2025 12:24 AM EDT us Phillip Clark MD LAB BLOOD ORDERABLES Final R esult Performing Organization Address City/[facility]/ZIP Co de Phone Number [facility] [address] [place] [address] * Magnesium (06/16/2025 5:35 PM EDT) Magnesium, Plasma 2.2 1.9 - 2.4 mg/dL 06/16/2025 7:41 PM EDT [facility] Blood Venous blood specimen / Unknown Venipuncture / Unknown 06/16/2025 5:35 PM EDT 06/16/2025 7:12 PM EDT us Phillip Clark MD LAB BLOOD ORDERABLES Final R esult [facility] [address] [place] [address] * (ABNORMAL) Renal function panel (06/16/2025 5:35 PM EDT) Glucose, Plasma 89 74 - 99 mg/dL 06/16/2025 7:41 PM EDT [facility] BUN, Plasma 15 8 - 23 mg/dL 06/16/2025 7:41 PM EDT [facility] Creatinine, Plasma 0.79 0.70 - 1.20 mg/dL 06/16/2025 7:41 PM EDT [facility] BUN/Creatinine Ratio 19 06/16/2025 7:41 PM EDT [facility] Sodium, Plasma 134(L) 136 - 145 mmol/L 06/16/2025 7:41 PM EDT [facility] Potassium, Plasma 3.8 3.6 - 4.9 mmol/L 06/16/2025 7:41 PM EDT [facility] Chloride, Plasma 98 97 - 107 mmol/L 06/16/2025 7:41 PM EDT [facility] CO2, Plasma 25 22 - 29 mmol/L 06/16/2025 7:41 PM EDT [facility] Anion Gap 11 6 - 16 mmol/L 06/16/2025 7:41 PM EDT [facility] Total Calcium, Plasma 8.4(L) 8.9 - 10.2 mg/dL 06/16/2025 7:41 PM EDT [facility] Phosphorus, Plasma 2.2(L) 2.5 - 4.5 mg/dL 06/16/2025 7:41 PM EDT [facility] Albumin, Plasma 3.4(L) 3.5 - 5.2 g/dL 06/16/2025 7:41 PM EDT [facility] eGFRcr 96.2 mL/min/1.7 3m*2 06/16/2025 7:41 PM EDT [facility] Comment:Reported eGFRcr in m L/min/1.73m2 is based the CKD-EPI 2020 equation that does not use a race coefficient. Blood Venous blood specimen / Unknown Venipuncture / Unknown 06/16/2025 5:35 PM EDT 06/16/2025 7:12 PM EDT Phillip Clark MD LAB BLOOD ORDERABLES Final R esult [facility] [address] [place] [address] * [place] CRITICAL CARE, E/M 30-74 MINUTES (06/16/2025 9:58 [...] for testing. Comment 06/16/2025 8:45 AM EDT [facility] Tube Handler ID Fariba Blanton [id number] 8:45 AM EDT [facility] Device ID [id number] 06/16/2025 8:[address] [facility] Specimen Type POC Arterial 06/16/2025 8:[address] [facility] Blood Arterial blood specimen / Unknown 06/16/2025 8:40 AM EDT 06/16/2025 8:45 AM EDT us Phillip Clark MD LAB POINT OF CARE TE ST DOCKED DEVICE UNSOLICITED RESULTS Final Result [facility] [address] [place] [address] * (ABNORMAL) Basic metabolic panel (06/16/2025 5:58 AM EDT) Glucose, Plasma 124(H) 74 - 99 mg/dL 06/16/2025 6:35 AM EDT [facility] BUN, Plasma 16 8 - 23 mg/dL 06/16/2025 6:35 AM EDT [facility] Creatinine, Plasma 0.83 0.70 - 1.20 mg/dL 06/16/2025 6:35 AM EDT [facility] BUN/Creatinine Ratio 19 06/16/2025 6:35 AM EDT [facility] Sodium, Plasma 132(L) 136 - 145 mmol/L 06/16/2025 6:35 AM EDT [facility] Potassium, Plasma 3.8 3.6 - 4.9 mmol/L 06/16/2025 6:35 AM EDT [facility] Chloride, Plasma 100 97 - 107 mmol/L 06/16/2025 6:35 AM EDT [facility] CO2, Plasma 25 22 - 29 mmol/L 06/16/2025 6:35 AM EDT [facility] Anion Gap 7 6 - 16 mmol/L 06/16/2025 6:35 AM EDT [facility] Total Calcium, Plasma 8.4(L) 8.9 - 10.2 mg/dL 06/16/2025 6:35 AM EDT [facility] eGFRcr 94.7 mL/min/1.7 3m*2 06/16/2025 6:35 AM EDT [facility] Comment:Reported eGFRcr in m L/min/1.73m2 is based the CKD-EPI 2020 equation that does not use a race coefficient. Blood Arterial blood specimen / Unknown Venipuncture / Unknown 06/16/2025 5:58 AM EDT 06/16/2025 6:05 AM EDT us Phillip Clark MD LAB BLOOD ORDERABLES Final R esult [facility] [address] [place] [address] * XR Chest 1 View (06/16/2025 5:14 AM EDT) Anatomical Region Laterality Modality Chest Digital Radiogra phy Impressions 06/16/2025 8:15 AM EDT Interval removal of the Ruidoso-Shira catheter, the right IJ sheath remains in [...] post median sternotomy. Interval removal of the Ruidoso-Shira catheter, right IJ sheath remains in place with tip in the mid to distal SVC. No pneumothorax or pleural effusions. Ongoing interstitial edema. Procedure Note Mona Smith MD - 06/16/2025 CLINICAL INDICATION: Post-Op Cardiac Surgery TECHNIQUE: XR CHEST 1 VIEW COMPARISON: Chest radiograph 06/15/2025 FINDINGS: Enlarged cardiac silhouette stable status post median sternotomy. Intervalremoval of the Ruidoso-Shira catheter, right IJ sheath remains in place withtip in the mid to distal SVC. No pneumothorax or pleural effusions. Ongoing interstitial edema. IMPRESSION: Interval removal of the Ruidoso-Shira catheter, the right IJ sheath remainsin place [...] - 4.5 mg/dL 06/16/2025 1:12 AM EDT [facility] Blood Arterial blood specimen / Unknown Venipuncture / Unknown 06/16/2025 12:36 AM EDT 06/16/2025 12:48 AM EDT us Phillip Clark MD LAB BLOOD ORDERABLES Final R esult [facility] [address] [place] [address] * (ABNORMAL) Protime-INR (06/16/2025 12:36 AM EDT) [facility] Prothrombin Time 18.0(H) 12.0 - 14.3 sec LAB COAGULATION METHOD 06/16/2025 1:06 AM EDT [facility] INR 1.5(H) 0.9 - 1.1 LAB COAGULATION METHOD 06/16/2025 1:06 AM EDT [facility] Blood Arterial blood specimen / Unknown Venipuncture / Unknown 06/16/2025 12:36 AM EDT 06/16/2025 12:48 AM EDT Narrative [facility] - 06/16/2025 1:06 AM EDT OPTIMAL INR RANGES FOR PATIENT ON ORAL ANTICOAGULANT THERAPY Prevention of venous thromboembolism INR 2.0 to 3.0 In patients with heart disease: Atrial fibrillation INR 2.0 to 3.0 Valvular heart disease INR 2.0 to 3.0 Tissue heart valves INR 2.0 to 3.0 Mechanical prosthetic valves INR 2.5 to 3.5 Prevention of recurrent MA INR 2.5 to 3.5 us Phillip Clark MD LAB BLOOD ORDERABLES Final R esult [facility] [address] [place] [address] * (ABNORMAL) Magnesium (06/16/2025 12:36 AM EDT) [facility] Magnesium, Plasma 2.5(H) 1.9 - 2.4 mg/dL 06/16/2025 1:12 AM EDT [facility] Blood Arterial blood specimen / Unknown Venipuncture / Unknown 06/16/2025 12:36 AM EDT 06/16/2025 12:48 AM EDT Phillip Clark MD LAB BLOOD ORDERABLES Final R esult [facility] [address] [place] [address] * (ABNORMAL) CBC (06/16/2025 12:36 AM EDT) WBC Count 13.67(H) 3.70 - 10.30 10*3/uL LAB HEMATOLOGY METHOD 06/16/2025 1:01 AM EDT [facility] RBC Count 4.36(L) 4.60 - 6.10 10*6/uL LAB HEMATOLOGY METHOD 06/16/2025 1:01 AM EDT [facility] HGB 12.3(L) 13.7 - 17.5 g/dL LAB HEMATOLOGY METHOD 06/16/2025 1:01 AM EDT [facility] HCT 37.1(L) 40.0 - 51.0 % LAB HEMATOLOGY METHOD 06/16/2025 1:01 AM EDT [facility] Platelet Count 106(L) 155 - 369 10*3/uL LAB HEMATOLOGY METHOD 06/16/2025 1:01 AM EDT [facility] MCV 85 79 - 98 fL LAB HEMATOLOGY METHOD 06/16/2025 1:01 AM EDT [facility] MCH 28.2 26.0 - 32.0 pg LAB HEMATOLOGY METHOD 06/16/2025 1:01 AM EDT [facility] MCHC 33.2 30.7 - 35.5 g/dL LAB HEMATOLOGY METHOD 06/16/2025 1:01 AM EDT [facility] RDW 15.4(H) 11.5 - 14.5 % LAB HEMATOLOGY METHOD 06/16/2025 1:01 AM EDT [facility] MPV 10.8 8.8 - 12.5 fL LAB HEMATOLOGY METHOD 06/16/2025 1:01 AM EDT [facility] nRBC 0.0 <=0.0 per 100 WBCs LAB HEMATOLOGY METHOD 06/16/2025 1:01 AM EDT [facility] Blood Arterial blood specimen / Unknown Venipuncture / Unknown 06/16/2025 12:36 AM EDT 06/16/2025 12:48 AM EDT us Phillip Clark MD LAB BLOOD ORDERABLES Final R esult [facility] [address] [place] [address] * (ABNORMAL) Blood gas, arterial (06/16/2025 12:36 AM EDT) pH, Arterial 7.43(H) 7.31 - 7.42 LAB HEMATOLOGY METHOD 06/16/2025 12:58 AM EDT [facility] pCO2, Arterial 41 32 - 45 mmHg LAB HEMATOLOGY METHOD 06/16/2025 12:58 AM EDT [facility] pO2, Arterial 65(L) >80 mmHg LAB HEMATOLOGY METHOD 06/16/2025 12:58 AM EDT [facility] SO2, Measured, Arterial 94 94 - 98 % LAB HEMATOLOGY METHOD 06/16/2025 12:58 AM EDT [facility] Base Excess, Arterial 2.5 -2.0 - 3.0 mmol/L LAB HEMATOLOGY METHOD 06/16/2025 12:58 AM EDT [facility] Bicarbonate, Calculated, Arterial 27(H) 22 - 26 mmol/L LAB HEMATOLOGY METHOD 06/16/2025 12:58 AM EDT [facility] Hematocrit, Whole Blood 37.9(L) 40.0 - 51.0 % LAB HEMATOLOGY METHOD 06/16/2025 12:58 AM EDT [facility] Sodium, Whole Blood 133(L) 136 - 145 mmol/L LAB HEMATOLOGY METHOD 06/16/2025 12:58 AM EDT [facility] Potassium, Whole Blood 3.4(L) 3.6 - 4.9 mmol/L LAB HEMATOLOGY METHOD 06/16/2025 12:58 AM EDT [facility] Chloride, Whole Blood 100 97 - 107 mmol/L LAB HEMATOLOGY METHOD 06/16/2025 12:58 AM EDT [facility] Glucose, Whole Blood 124(H) 74 - 99 mg/dL LAB HEMATOLOGY METHOD 06/16/2025 12:58 AM EDT [facility] Ionized Calcium, Whole Blood 4.3(L) 4.6 - 5.1 mg/dL LAB HEMATOLOGY METHOD 06/16/2025 12:58 AM EDT [facility] Lactate, Arterial, Whole Blood 1.0 0.5 - 1.6 mmol/L LAB HEMATOLOGY METHOD 06/16/2025 12:58 AM EDT [facility] Blood Arterial blood specimen / Unknown Arterial Puncture / Unknown 06/16/2025 12:36 AM EDT 06/16/2025 12:55 AM EDT us Phillip Clark MD LAB BLOOD ORDERABLES Final R esult Performing Organization Address City/[facility]/ZIP Co de Phone Number [facility] [address] [place] [address] * (ABNORMAL) POCT glucose meter (06/15/2025 8:00 PM EDT) Pathologist [facility] POCT Glucose 120(H) 74 - 99 mg/dL [...] Comment 06/15/2025 8:01 PM EDT [facility] Tube Handler ID Svetlana Reilly 8:01 PM EDT [facility] Device ID [id number] 06/15/2025 8:[address] [facility] Specimen Type POC Capillary 06/15/2025 8:[address] [facility] Blood Capillary blood specimen / Unknown 06/15/2025 8:00 PM EDT 06/15/2025 8:01 PM EDT us Phillip Clark MD LAB POINT OF CARE TE ST DOCKED DEVICE UNSOLICITED RESULTS Final Result Performing Organization Address City/[facility] Co de Phone Number [facility] [address] [place] [address] * (ABNORMAL) POCT glucose meter (06/15/2025 5:56 PM EDT) Pathologist [facility] POCT Glucose 121(H) 74 - 99 mg/dL [...] Comment 06/15/2025 5:57 PM EDT [facility] Tube Handler ID Bony Thomas 025 5:57 PM EDT [facility] Device ID [id number] 06/15/2025 5:57 PM EDT [facility] Specimen Type POC Arterial 06/15/2025 5:57 PM EDT [facility] Blood Arterial blood specimen / Unknown 06/15/2025 5:56 PM EDT 06/15/2025 5:57 PM EDT us Phillip Clark MD LAB POINT OF CARE TE ST DOCKED DEVICE UNSOLICITED RESULTS Final Result Performing Organization Address City/[facility] Co de Phone Number [facility] [address] [place] [address] * Magnesium (06/15/2025 4:11 PM EDT) Magnesium, Plasma 2.1 1.9 - 2.4 mg/dL 06/15/2025 6:21 PM EDT [facility] Blood Venous blood specimen / Unknown Venipuncture / Unknown 06/15/2025 4:11 PM EDT 06/15/2025 4:39 PM EDT us Phillip Clark MD LAB BLOOD ORDERABLES Final R esult Performing Organization Address City/[facility] Co de Phone Number [facility] [address] [place] [address] * Phosphorus (06/15/2025 4:11 PM EDT) Phosphorus, Plasma 2.9 2.5 - 4.5 mg/dL 06/15/2025 5:12 PM EDT [facility] Blood Venous blood specimen / Unknown Venipuncture / Unknown 06/15/2025 4:11 PM EDT 06/15/2025 4:39 PM EDT Phillip Clark MD LAB BLOOD ORDERABLES Final R esult Performing Organization Address City/[facility]/ZIP Co de Phone Number [facility] [address] [place] [address] * (ABNORMAL) Basic metabolic panel (06/15/2025 4:11 PM EDT) Glucose, Plasma 123(H) 74 - 99 mg/dL 06/15/2025 5:12 PM EDT [facility] BUN, Plasma 19 8 - 23 mg/dL 06/15/2025 5:12 PM EDT [facility] Creatinine, Plasma 0.88 0.70 - 1.20 mg/dL 06/15/2025 5:12 PM EDT [facility] BUN/Creatinine Ratio 22 06/15/2025 5:12 PM EDT [facility] Sodium, Plasma 133(L) 136 - 145 mmol/L 06/15/2025 5:12 PM EDT [facility] Potassium, Plasma 3.9 3.6 - 4.9 mmol/L 06/15/2025 5:12 PM EDT [facility] Chloride, Plasma 102 97 - 107 mmol/L 06/15/2025 5:12 PM EDT [facility] CO2, Plasma 23 22 - 29 mmol/L 06/15/2025 5:12 PM EDT [facility] Anion Gap 8 6 - 16 mmol/L 06/15/2025 5:12 PM EDT [facility] Total Calcium, Plasma 8.6(L) 8.9 - 10.2 mg/dL 06/15/2025 5:12 PM EDT [facility] eGFRcr 93.1 mL/min/1.7 3m*2 06/15/2025 5:12 PM EDT [facility] Comment:Reported eGFRcr in m L/min/1.73m2 is based the CKD-EPI 2020 equation that does not use a race coefficient. Blood Venous blood specimen / Unknown Venipuncture / Unknown 06/15/2025 4:11 PM EDT 06/15/2025 4:39 PM EDT us Phillip Clark MD LAB BLOOD ORDERABLES Final R esult [facility] [address] [place] [address] * (ABNORMAL) POCT glucose meter (06/15/2025 12:14 [...] Comment 06/15/2025 12:16 PM EDT [facility] Tube Handler ID Bony Thomas 025 12:16 PM EDT [facility] Device ID [id number] 06/15/2025 12:16 PM EDT [facility] Specimen Type POC Arterial 06/15/2025 12:16 PM EDT [facility] Blood Arterial blood specimen / Unknown 06/15/2025 12:14 PM EDT 06/15/2025 12:16 PM EDT Phillip Clark MD LAB POINT OF CARE TE ST DOCKED DEVICE UNSOLICITED RESULTS Final Result [facility] [address] [place] [address] * [place] CRITICAL CARE, E/M 30-74 MINUTES (06/15/2025 9:19 [...] for testing. Comment 06/15/2025 8:25 AM EDT [email or web address] Tube Handler ID Bony Thomas 025 8:25 AM EDT [email or web address] Device ID [id number] 06/15/2025 8:[address] [facility] Specimen Type POC Arterial 06/15/2025 8:[address] [facility] Blood Arterial blood specimen / Unknown 06/15/2025 8:24 AM EDT 06/15/2025 8:25 AM EDT us Phillip Clark MD LAB POINT OF CARE TE ST DOCKED DEVICE UNSOLICITED RESULTS Final Result Performing Organization Address City/State/[facility] Co de Phone Number [facility] [address] [place] [id number] * (ABNORMAL) CBC and Differential (06/15/2025 8:18 AM EDT) WBC Count 12.56(H) 3.70 - 10.30 10*3/uL LAB HEMATOLOGY METHOD 06/15/2025 8:47 AM EDT [facility] RBC Count 4.60 4.60 - 6.10 10*6/uL LAB HEMATOLOGY METHOD 06/15/2025 8:47 AM EDT [facility] HGB 12.8(L) 13.7 - 17.5 g/dL LAB HEMATOLOGY METHOD 06/15/2025 8:47 AM EDT [facility] HCT 39.4(L) 40.0 - 51.0 % LAB HEMATOLOGY METHOD 06/15/2025 8:47 AM EDT [facility] Platelet Count 120(L) 155 - 369 10*3/uL LAB HEMATOLOGY METHOD 06/15/2025 8:47 AM EDT [facility] MCV 86 79 - 98 fL LAB HEMATOLOGY METHOD 06/15/2025 8:47 AM EDT [facility] MCH 27.8 26.0 - 32.0 pg LAB HEMATOLOGY METHOD 06/15/2025 8:47 AM EDT [facility] MCHC 32.5 30.7 - 35.5 g/dL LAB HEMATOLOGY METHOD 06/15/2025 8:47 AM EDT [facility] RDW 15.5(H) 11.5 - 14.5 % LAB HEMATOLOGY METHOD 06/15/2025 8:47 AM EDT [facility] MPV 10.6 8.8 - 12.5 fL LAB HEMATOLOGY METHOD 06/15/2025 8:47 AM EDT [facility] nRBC 0.0 <=0.0 per 100 WBCs LAB HEMATOLOGY METHOD 06/15/2025 8:47 AM EDT [facility] Differential Type Automated LAB HEMATOLOGY METHOD 06/15/2025 8:47 AM EDT [facility] Neutrophils % 84 % LAB HEMATOLOGY METHOD 06/15/2025 8:47 AM EDT [facility] Lymphocytes % 5 % LAB HEMATOLOGY METHOD 06/15/2025 8:47 AM EDT [facility] Monocytes % 10 % LAB HEMATOLOGY METHOD 06/15/2025 8:47 AM EDT [facility] Eosinophils % 0 % LAB HEMATOLOGY METHOD 06/15/2025 8:47 AM EDT [facility] Basophils % 0 % LAB HEMATOLOGY METHOD 06/15/2025 8:47 AM EDT [facility] Immature Granulocytes % 1 % LAB HEMATOLOGY METHOD 06/15/2025 8:47 AM EDT [facility] Neutrophils Absolute 10.59(H) 1.60 - 6.10 10*3/uL LAB HEMATOLOGY METHOD 06/15/2025 8:47 AM EDT [facility] Lymphocytes Absolute 0.60(L) 1.20 - 3.90 10*3/uL LAB HEMATOLOGY METHOD 06/15/2025 8:47 AM EDT [facility] Monocytes Absolute 1.29(H) 0.30 - 0.90 10*3/uL LAB HEMATOLOGY METHOD 06/15/2025 8:47 AM EDT [facility] Eosinophils Absolute 0.00 0.00 - 0.50 10*3/uL LAB HEMATOLOGY METHOD 06/15/2025 8:47 AM EDT [facility] Basophils Absolute 0.02 0.00 - 0.10 10*3/uL LAB HEMATOLOGY METHOD 06/15/2025 8:47 AM EDT [facility] Immature Granulocytes Absolute 0.06 0.00 - 0.06 10*3/uL LAB HEMATOLOGY METHOD 06/15/2025 8:47 AM EDT [facility] Blood Venous blood specimen / Unknown Venipuncture / Unknown 06/15/2025 8:18 AM EDT 06/15/2025 8:34 AM EDT Narrative [facility] - 06/15/2025 8:47 AM EDT Therapeutic decision making should be based on absolute values, rather than percentages. us Phillip Clark MD LAB BLOOD ORDERABLES Final R esult [facility] [address] [place] [address] * (ABNORMAL) Protime-INR (06/15/2025 6:40 AM EDT) Prothrombin Time 16.5(H) 12.0 - 14.3 sec LAB COAGULATION METHOD 06/15/2025 7:53 AM EDT [facility] INR 1.3(H) 0.9 - 1.1 LAB COAGULATION METHOD 06/15/2025 7:53 AM EDT [facility] Blood Arterial blood specimen / Unknown Venipuncture / Unknown 06/15/2025 6:40 AM EDT 06/15/2025 6:47 AM EDT Narrative [facility] - 06/15/2025 7:53 AM EDT OPTIMAL INR RANGES FOR PATIENT ON ORAL ANTICOAGULANT THERAPY Prevention of venous thromboembolism INR 2.0 to 3.0 In patients with heart disease: Atrial fibrillation INR 2.0 to 3.0 Valvular heart disease INR 2.0 to 3.0 Tissue heart valves INR 2.0 to 3.0 Mechanical prosthetic valves INR 2.5 to 3.5 Prevention of recurrent MA INR 2.5 to 3.5 Phillip Clark MD LAB BLOOD ORDERABLES Final R esult Performing Organization Address [facility] Co de Phone Number [facility] [address] [place] [address] * Ionized calcium, whole blood (06/15/2025 6:40 AM EDT) Ionized Calcium, Whole Blood 4.6 4.6 - 5.1 mg/dL LAB HEMATOLOGY METHOD 06/15/2025 6:50 AM EDT [facility] Blood Arterial blood specimen / Unknown Venipuncture / Unknown 06/15/2025 6:40 AM EDT 06/15/2025 6:48 AM EDT Phillip Clark MD LAB BLOOD ORDERABLES Final R esult Performing Organization Address [facility] [place] [address] * ECG Adult - POD 1 (06/15/2025 5:20 AM EDT) EKG DIAGNOSIS CLASS Abnormal MUSE ECG Ventricular Rate 71 BPM MUSE ECG Atrial Rate 71 BPM MUSE ECG TX Interval 182 ms MUSE ECG QRSD Interval 108 ms MUSE ECG QT Interval 418 ms MUSE ECG QTC Interval 454 ms MUSE ECG P [place] 51 degrees MUSE ECG R [place] -48 degrees MUSE ECG T Wave [place] -12 degrees MUSE ECG Diagnosis Normal sinus rhythm MUSE ECG Diagnosis Left anterior fascicular block MUSE ECG Diagnosis Abnormal ECG MUSE ECG Diagnosis MUSE ECG Diagnosis Confirmed by Bimal Brambila ([id number]) on 06/15/2025 11:38:57 AM MUSE ECG 06/15/2025 5:20 AM EDT 06/15/2025 11:38 AM EDT Phillip Clark MD ECG ORDERABLES Final Result MUSE ECG * (ABNORMAL) Blood gas panel, arterial (06/15/2025 3:58 AM EDT) pH, Arterial 7.39 7.31 - 7.42 LAB HEMATOLOGY METHOD 06/15/2025 4:06 AM EDT [facility] pCO2, Arterial 39 32 - 45 mmHg LAB HEMATOLOGY METHOD 06/15/2025 4:06 AM EDT [facility] pO2, Arterial 79(L) >80 mmHg LAB HEMATOLOGY METHOD 06/15/2025 4:06 AM EDT [facility] SO2, Measured, Arterial 97 94 - 98 % LAB HEMATOLOGY METHOD 06/15/2025 4:06 AM EDT [facility] Base Excess, Arterial -1.2 -2.0 - 3.0 mmol/L LAB HEMATOLOGY METHOD 06/15/2025 4:06 AM EDT [facility] Bicarbonate, Calculated, Arterial 24 22 - 26 mmol/L LAB HEMATOLOGY METHOD 06/15/2025 4:06 AM EDT [facility] Hematocrit, Whole Blood 39.7(L) 40.0 - 51.0 % LAB HEMATOLOGY METHOD 06/15/2025 4:06 AM EDT [facility] Sodium, Whole Blood 134(L) 136 - 145 mmol/L LAB HEMATOLOGY METHOD 06/15/2025 4:06 AM EDT [facility] Potassium, Whole Blood 4.4 3.6 - 4.9 mmol/L LAB HEMATOLOGY METHOD 06/15/2025 4:06 AM EDT [facility] Chloride, Whole Blood 108(H) 97 - 107 mmol/L LAB HEMATOLOGY METHOD 06/15/2025 4:06 AM EDT [facility] Glucose, Whole Blood 132(H) 74 - 99 mg/dL LAB HEMATOLOGY METHOD 06/15/2025 4:06 AM EDT [facility] Ionized Calcium, Whole Blood 4.5(L) 4.6 - 5.1 mg/dL LAB HEMATOLOGY METHOD 06/15/2025 4:06 AM EDT [facility] Lactate, Arterial, Whole Blood 0.9 0.5 - 1.6 mmol/L LAB HEMATOLOGY METHOD 06/15/2025 4:06 AM EDT [facility] Blood Arterial blood specimen / Unknown Arterial Puncture / Unknown 06/15/2025 3:58 AM EDT 06/15/2025 4:06 AM EDT us Phillip Clark MD LAB BLOOD ORDERABLES Final R esult [facility] [address] [place] [address] * XR Chest 1 View (06/15/2025 2:53 [...] of NG tube. Right internal jugular approach [place] catheter and mediastinal drain in unchanged position. [...] IMG XR PROCEDURES Final Resu lt * TX CRITICAL CARE, ADDL 30 MIN, TX CRITICAL CARE, ADDL 30 MIN (06/15/2025 12:21 [...] LAB HEMATOLOGY METHOD 06/15/2025 8:17 AM EDT [facility] Neutrophils % 85 % LAB HEMATOLOGY METHOD 06/15/2025 8:17 AM EDT [facility] Lymphocytes % 4 % LAB HEMATOLOGY METHOD 06/15/2025 8:17 AM EDT [facility] Monocytes % 10 % LAB HEMATOLOGY METHOD 06/15/2025 8:17 AM EDT [facility] Eosinophils % 0 % LAB HEMATOLOGY METHOD 06/15/2025 8:17 AM EDT [facility] Basophils % 0 % LAB HEMATOLOGY METHOD 06/15/2025 8:17 AM EDT [facility] Immature Granulocytes % 1 % LAB HEMATOLOGY METHOD 06/15/2025 8:17 AM EDT [facility] Immature Granulocytes Absolute 0.05 0.00 - 0.06 10*3/uL LAB HEMATOLOGY METHOD 06/15/2025 8:17 AM EDT [facility] Neutrophils Absolute 9.28(H) 1.60 - 6.10 10*3/uL LAB HEMATOLOGY METHOD 06/15/2025 8:17 AM EDT [facility] Lymphocytes Absolute 0.45(L) 1.20 - 3.90 10*3/uL LAB HEMATOLOGY METHOD 06/15/2025 8:17 AM EDT [facility] Monocytes Absolute 1.14(H) 0.30 - 0.90 10*3/uL LAB HEMATOLOGY METHOD 06/15/2025 8:17 AM EDT [facility] Basophils Absolute 0.02 0.00 - 0.10 10*3/uL LAB HEMATOLOGY METHOD 06/15/2025 8:17 AM EDT [facility] Eosinophils Absolute 0.00 0.00 - 0.50 10*3/uL LAB HEMATOLOGY METHOD 06/15/2025 8:17 AM EDT [facility] Blood Venous blood specimen / Unknown Venipuncture / Unknown 06/15/2025 12:20 AM EDT 06/15/2025 12:26 AM EDT us Phillip Clark MD LAB BLOOD ORDERABLES Final R esult Performing Organization Address City/State/[facility] de Phone Number [facility] [address] [place] [address] * Phosphorus (06/15/2025 12:20 AM EDT) Phosphorus, Plasma 2.6 2.5 - 4.5 mg/dL 06/15/2025 8:33 AM EDT [facility] Blood Venous blood specimen / Unknown Venipuncture / Unknown 06/15/2025 12:20 AM EDT 06/15/2025 12:26 AM EDT Phillip Clark MD LAB BLOOD ORDERABLES Final R esult [facility] [address] [place] [address] * (ABNORMAL) Magnesium (06/15/2025 12:20 AM EDT) Magnesium, Plasma 2.5(H) 1.9 - 2.4 mg/dL 06/15/2025 7:37 AM EDT [facility] Blood Venous blood specimen / Unknown Venipuncture / Unknown 06/15/2025 12:20 AM EDT 06/15/2025 12:26 AM EDT us Phillip Clark MD LAB BLOOD ORDERABLES Final R esult Performing Organization Address [facility]/ZIP Co de Phone Number [facility] [address] [place] [address] * (ABNORMAL) Basic metabolic panel (06/15/2025 12:20 AM EDT) Pathologist [facility] Glucose, Plasma 140(H) 74 - 99 mg/dL 06/15/2025 7:37 AM EDT [facility] BUN, Plasma 17 8 - 23 mg/dL 06/15/2025 7:37 AM EDT [facility] Creatinine, Plasma 0.84 0.70 - 1.20 mg/dL 06/15/2025 7:37 AM EDT [facility] BUN/Creatinine Ratio 20 06/15/2025 7:37 AM EDT [facility] Sodium, Plasma 138 136 - 145 mmol/L 06/15/2025 7:37 AM EDT [facility] Potassium, Plasma 4.6 3.6 - 4.9 mmol/L 06/15/2025 7:37 AM EDT [facility] Chloride, Plasma 107 97 - 107 mmol/L 06/15/2025 7:37 AM EDT [facility] CO2, Plasma 18(L) 22 - 29 mmol/L 06/15/2025 7:37 AM EDT [facility] Anion Gap 13 6 - 16 mmol/L 06/15/2025 7:37 AM EDT [facility] Total Calcium, Plasma 8.0(L) 8.9 - 10.2 mg/dL 06/15/2025 7:37 AM EDT [facility] eGFRcr 94.4 mL/min/1.7 3m*2 06/15/2025 7:37 AM EDT [facility] Comment:Reported eGFRcr in m L/min/1.73m2 is based the CKD-EPI 2020 equation that does not use a race coefficient. Blood Venous blood specimen / Unknown Venipuncture / Unknown 06/15/2025 12:20 AM EDT 06/15/2025 12:26 AM EDT us Phillip Clark MD LAB BLOOD ORDERABLES Final R esult [facility] [address] [place] [address] * (ABNORMAL) CBC W/O Differential (06/15/2025 12:20 AM EDT) WBC Count 10.94(H) 3.70 - 10.30 10*3/uL LAB HEMATOLOGY METHOD 06/15/2025 8:32 AM EDT [facility] RBC Count 4.94 4.60 - 6.10 10*6/uL LAB HEMATOLOGY METHOD 06/15/2025 8:32 AM EDT [facility] HGB 13.6(L) 13.7 - 17.5 g/dL LAB HEMATOLOGY METHOD 06/15/2025 8:32 AM EDT [facility] HCT 41.0 40.0 - 51.0 % LAB HEMATOLOGY METHOD 06/15/2025 8:32 AM EDT [facility] Platelet Count 142(L) 155 - 369 10*3/uL LAB HEMATOLOGY METHOD 06/15/2025 8:32 AM EDT [facility] MCV 87 79 - 98 fL LAB HEMATOLOGY METHOD 06/15/2025 8:32 AM EDT [facility] MCH 27.5 26.0 - 32.0 pg LAB HEMATOLOGY METHOD 06/15/2025 8:32 AM EDT [facility] MCHC 31.8 30.7 - 35.5 g/dL LAB HEMATOLOGY METHOD 06/15/2025 8:32 AM EDT [facility] RDW 15.6(H) 11.5 - 14.5 % LAB HEMATOLOGY METHOD 06/15/2025 8:32 AM EDT [facility] MPV 11.1 8.8 - 12.5 fL LAB HEMATOLOGY METHOD 06/15/2025 8:32 AM EDT [facility] nRBC 0.0 <=0.0 per 100 WBCs LAB HEMATOLOGY METHOD 06/15/2025 8:32 AM EDT [facility] Blood Venous blood specimen / Unknown Venipuncture / Unknown 06/15/2025 12:20 AM EDT 06/15/2025 12:26 AM EDT us Phillip Clark MD LAB BLOOD ORDERABLES Final R esult Performing Organization Address City/[facility]/ZIP Co de Phone Number [facility] [address] [place] [address] * Potassium, Plasma (06/15/2025 12:20 AM EDT) Potassium, Plasma 4.5 3.6 - 4.9 mmol/L 06/15/2025 12:51 AM EDT [facility] Blood Venous blood specimen / Unknown Venipuncture / Unknown 06/15/2025 12:20 AM EDT 06/15/2025 12:26 AM EDT us Phillip Clark MD LAB BLOOD ORDERABLES Final R esult Performing Organization Address City/[facility]/ZIP Co de Phone Number [facility] [address] [place] [address] * Hematocrit (06/15/2025 12:20 AM EDT) HCT 41.0 40.0 - 51.0 % LAB HEMATOLOGY METHOD 06/15/2025 12:36 AM EDT [facility] Blood Venous blood specimen / Unknown Venipuncture / Unknown 06/15/2025 12:20 AM EDT 06/15/2025 12:26 AM EDT us Phillip Clark MD LAB BLOOD ORDERABLES Final R esult [facility] [address] [place] [address] * (ABNORMAL) Hemoglobin (06/15/2025 12:20 AM EDT) HGB 13.6(L) 13.7 - 17.5 g/dL LAB HEMATOLOGY METHOD 06/15/2025 12:36 AM EDT [facility] Blood Venous blood specimen / Unknown Venipuncture / Unknown 06/15/2025 12:20 AM EDT 06/15/2025 12:26 AM EDT us Phillip Clark MD LAB BLOOD ORDERABLES Final R esult [facility] [address] [place] [address] * (ABNORMAL) Blood gas, arterial (06/15/2025 12:20 AM EDT) pH, Arterial 7.37 7.31 - 7.42 LAB HEMATOLOGY METHOD 06/15/2025 12:37 AM EDT [facility] pCO2, Arterial 40 32 - 45 mmHg LAB HEMATOLOGY METHOD 06/15/2025 12:37 AM EDT [facility] pO2, Arterial 65(L) >80 mmHg LAB HEMATOLOGY METHOD 06/15/2025 12:37 AM EDT [facility] SO2, Measured, Arterial 94 94 - 98 % LAB HEMATOLOGY METHOD 06/15/2025 12:37 AM EDT [facility] Base Excess, Arterial -1.8 -2.0 - 3.0 mmol/L LAB HEMATOLOGY METHOD 06/15/2025 12:37 AM EDT [facility] Bicarbonate, Calculated, Arterial 23 22 - 26 mmol/L LAB HEMATOLOGY METHOD 06/15/2025 12:37 AM EDT [facility] Hematocrit, Whole Blood 41.1 40.0 - 51.0 % LAB HEMATOLOGY METHOD 06/15/2025 12:37 AM EDT [facility] Sodium, Whole Blood 137 136 - 145 mmol/L LAB HEMATOLOGY METHOD 06/15/2025 12:37 AM EDT [facility] Potassium, Whole Blood 4.2 3.6 - 4.9 mmol/L LAB HEMATOLOGY METHOD 06/15/2025 12:37 AM EDT [facility] Chloride, Whole Blood 110(H) 97 - 107 mmol/L LAB HEMATOLOGY METHOD 06/15/2025 12:37 AM EDT [facility] Glucose, Whole Blood 140(H) 74 - 99 mg/dL LAB HEMATOLOGY METHOD 06/15/2025 12:37 AM EDT [facility] Ionized Calcium, Whole Blood 4.5(L) 4.6 - 5.1 mg/dL LAB HEMATOLOGY METHOD 06/15/2025 12:37 AM EDT [facility] Lactate, Arterial, Whole Blood 1.8(H) 0.5 - 1.6 mmol/L LAB HEMATOLOGY METHOD 06/15/2025 12:37 AM EDT [facility] Blood Arterial blood specimen / Unknown Arterial Puncture / Unknown 06/15/2025 12:20 AM EDT 06/15/2025 12:34 AM EDT us Phillip Clark MD LAB BLOOD ORDERABLES Final R esult [facility] [address] [place] [address] * (ABNORMAL) Blood gas, arterial (06/14/2025 8:04 PM EDT) pH, Arterial 7.35 7.31 - 7.42 LAB HEMATOLOGY METHOD 06/14/2025 8:19 PM EDT [facility] pCO2, Arterial 39 32 - 45 mmHg LAB HEMATOLOGY METHOD 06/14/2025 8:19 PM EDT [facility] pO2, Arterial 88 >80 mmHg LAB HEMATOLOGY METHOD 06/14/2025 8:19 PM EDT [facility] SO2, Measured, Arterial 98 94 - 98 % LAB HEMATOLOGY METHOD 06/14/2025 8:19 PM EDT [facility] Base Excess, Arterial -3.7(L) -2.0 - 3.0 mmol/L LAB HEMATOLOGY METHOD 06/14/2025 8:19 PM EDT [facility] Bicarbonate, Calculated, Arterial 22 22 - 26 mmol/L LAB HEMATOLOGY METHOD 06/14/2025 8:19 PM EDT [facility] Hematocrit, Whole Blood 44.7 40.0 - 51.0 % LAB HEMATOLOGY METHOD 06/14/2025 8:19 PM EDT [facility] Sodium, Whole Blood 138 136 - 145 mmol/L LAB HEMATOLOGY METHOD 06/14/2025 8:19 PM EDT [facility] Potassium, Whole Blood 4.5 3.6 - 4.9 mmol/L LAB HEMATOLOGY METHOD 06/14/2025 8:19 PM EDT [facility] Chloride, Whole Blood 109(H) 97 - 107 mmol/L LAB HEMATOLOGY METHOD 06/14/2025 8:19 PM EDT [facility] Glucose, Whole Blood 185(H) 74 - 99 mg/dL LAB HEMATOLOGY METHOD 06/14/2025 8:19 PM EDT [facility] Ionized Calcium, Whole Blood 4.5(L) 4.6 - 5.1 mg/dL LAB HEMATOLOGY METHOD 06/14/2025 8:19 PM EDT [facility] Lactate, Arterial, Whole Blood 3.0(H) 0.5 - 1.6 mmol/L LAB HEMATOLOGY METHOD 06/14/2025 8:19 PM EDT [facility] Blood Arterial blood specimen / Unknown Arterial Puncture / Unknown 06/14/2025 8:04 PM EDT 06/14/2025 8:14 PM EDT us Phillip Clark MD LAB BLOOD ORDERABLES Final R esult Performing Organization Address City/[facility] Co de Phone Number [facility] [address] [place] [address] * Potassium (06/14/2025 8:03 PM EDT) Potassium, Plasma 4.9 3.6 - 4.9 mmol/L 06/14/2025 8:33 PM EDT [facility] Blood Arterial blood specimen / Unknown Venipuncture / Unknown 06/14/2025 8:03 PM EDT 06/14/2025 8:11 PM EDT Phillip Clark MD LAB BLOOD ORDERABLES Final R esult Performing Organization Address City/[facility]/ZIP Co de Phone Number [facility] [address] [place] [address] * (ABNORMAL) Magnesium (06/14/2025 8:03 PM EDT) Magnesium, Plasma 2.7(H) 1.9 - 2.4 mg/dL 06/14/2025 8:40 PM EDT [facility] Blood Arterial blood specimen / Unknown Venipuncture / Unknown 06/14/2025 8:03 PM EDT 06/14/2025 8:11 PM EDT us Phillip Clark MD LAB BLOOD ORDERABLES Final R esult [facility] [address] [place] [address] * (ABNORMAL) CBC (06/14/2025 8:03 PM EDT) WBC Count 13.98(H) 3.70 - 10.30 10*3/uL LAB HEMATOLOGY METHOD 06/14/2025 8:20 PM EDT [facility] RBC Count 5.14 4.60 - 6.10 10*6/uL LAB HEMATOLOGY METHOD 06/14/2025 8:20 PM EDT [facility] HGB 14.5 13.7 - 17.5 g/dL LAB HEMATOLOGY METHOD 06/14/2025 8:20 PM EDT [facility] HCT 43.9 40.0 - 51.0 % LAB HEMATOLOGY METHOD 06/14/2025 8:20 PM EDT [facility] Platelet Count 158 155 - 369 10*3/uL LAB HEMATOLOGY METHOD 06/14/2025 8:20 PM EDT [facility] MCV 85 79 - 98 fL LAB HEMATOLOGY METHOD 06/14/2025 8:20 PM EDT [facility] MCH 28.2 26.0 - 32.0 pg LAB HEMATOLOGY METHOD 06/14/2025 8:20 PM EDT [facility] MCHC 33.0 30.7 - 35.5 g/dL LAB HEMATOLOGY METHOD 06/14/2025 8:20 PM EDT [facility] RDW 14.9(H) 11.5 - 14.5 % LAB HEMATOLOGY METHOD 06/14/2025 8:20 PM EDT [facility] MPV 10.8 8.8 - 12.5 fL LAB HEMATOLOGY METHOD 06/14/2025 8:20 PM EDT [facility] nRBC 0.0 <=0.0 per 100 WBCs LAB HEMATOLOGY METHOD 06/14/2025 8:20 PM EDT [facility] Blood Arterial blood specimen / Unknown Venipuncture / Unknown 06/14/2025 8:03 PM EDT 06/14/2025 8:11 PM EDT us Phillip Clark MD LAB BLOOD ORDERABLES Final R esult [facility] [address] [place] [address] * (ABNORMAL) Basic metabolic panel (06/14/2025 8:03 PM EDT) Glucose, Plasma 194(H) 74 - 99 mg/dL 06/14/2025 8:40 PM EDT [facility] BUN, Plasma 16 8 - 23 mg/dL 06/14/2025 8:40 PM EDT [facility] Creatinine, Plasma 0.85 0.70 - 1.20 mg/dL 06/14/2025 8:40 PM EDT [facility] BUN/Creatinine Ratio 19 06/14/2025 8:40 PM EDT [facility] Sodium, Plasma 139 136 - 145 mmol/L 06/14/2025 8:40 PM EDT [facility] Potassium, Plasma 5.0(H) 3.6 - 4.9 mmol/L 06/14/2025 8:40 PM EDT [facility] Chloride, Plasma 109(H) 97 - 107 mmol/L 06/14/2025 8:40 PM EDT [facility] CO2, Plasma 20(L) 22 - 29 mmol/L 06/14/2025 8:40 PM EDT [facility] Anion Gap 10 6 - 16 mmol/L 06/14/2025 8:40 PM EDT [facility] Total Calcium, Plasma 8.2(L) 8.9 - 10.2 mg/dL 06/14/2025 8:40 PM EDT [facility] eGFRcr 94.1 mL/min/1.7 3m*2 06/14/2025 8:40 PM EDT [facility] Comment:Reported eGFRcr in m L/min/1.73m2 is based the CKD-EPI 2020 equation that does not use a race coefficient. Blood Arterial blood specimen / Unknown Venipuncture / Unknown 06/14/2025 8:03 PM EDT 06/14/2025 8:11 PM EDT us Phillip Clark MD LAB BLOOD ORDERABLES Final R esult [facility] [address] [place] [address] * (ABNORMAL) Blood gas panel, arterial (06/14/2025 6:47 PM EDT) pH, Arterial 7.30(L) 7.31 - 7.42 LAB HEMATOLOGY METHOD 06/14/2025 6:57 PM EDT [facility] pCO2, Arterial 41 32 - 45 mmHg LAB HEMATOLOGY METHOD 06/14/2025 6:57 PM EDT [facility] pO2, Arterial 70(L) >80 mmHg LAB HEMATOLOGY METHOD 06/14/2025 6:57 PM EDT [facility] SO2, Measured, Arterial 94 94 - 98 % LAB HEMATOLOGY METHOD 06/14/2025 6:57 PM EDT [facility] Base Excess, Arterial -5.6(L) -2.0 - 3.0 mmol/L LAB HEMATOLOGY METHOD 06/14/2025 6:57 PM EDT [facility] Bicarbonate, Calculated, Arterial 21(L) 22 - 26 mmol/L LAB HEMATOLOGY METHOD 06/14/2025 6:57 PM EDT [facility] Hematocrit, Whole Blood 45.5 40.0 - 51.0 % LAB HEMATOLOGY METHOD 06/14/2025 6:57 PM EDT [facility] Sodium, Whole Blood 138 136 - 145 mmol/L LAB HEMATOLOGY METHOD 06/14/2025 6:57 PM EDT [facility] Potassium, Whole Blood 4.4 3.6 - 4.9 mmol/L LAB HEMATOLOGY METHOD 06/14/2025 6:57 PM EDT [facility] Chloride, Whole Blood 109(H) 97 - 107 mmol/L LAB HEMATOLOGY METHOD 06/14/2025 6:57 PM EDT [facility] Glucose, Whole Blood 209(H) 74 - 99 mg/dL LAB HEMATOLOGY METHOD 06/14/2025 6:57 PM EDT [facility] Ionized Calcium, Whole Blood 4.6 4.6 - 5.1 mg/dL LAB HEMATOLOGY METHOD 06/14/2025 6:57 PM EDT [facility] Lactate, Arterial, Whole Blood 3.9(H) 0.5 - 1.6 mmol/L LAB HEMATOLOGY METHOD 06/14/2025 6:57 PM EDT [facility] Blood Arterial blood specimen / Unknown Arterial Puncture / Unknown 06/14/2025 6:47 PM EDT 06/14/2025 6:56 PM EDT us Phillip Clark MD LAB BLOOD ORDERABLES Final R esult [facility] [address] [place] [address] * [place] CRITICAL CARE, E/M 30-74 MINUTES (06/14/2025 5:35 [...] LAB HEMATOLOGY METHOD 06/14/2025 4:12 PM EDT [facility] pCO2, Arterial 43 32 - 45 mmHg LAB HEMATOLOGY METHOD 06/14/2025 4:12 PM EDT [facility] pO2, Arterial 126 >80 mmHg LAB HEMATOLOGY METHOD 06/14/2025 4:12 PM EDT [facility] SO2, Measured, Arterial 99(H) 94 - 98 % LAB HEMATOLOGY METHOD 06/14/2025 4:12 PM EDT [facility] Base Excess, Arterial -5.8(L) -2.0 - 3.0 mmol/L LAB HEMATOLOGY METHOD 06/14/2025 4:12 PM EDT [facility] Bicarbonate, Calculated, Arterial 21(L) 22 - 26 mmol/L LAB HEMATOLOGY METHOD 06/14/2025 4:12 PM EDT [facility] Hematocrit, Whole Blood 43.9 40.0 - 51.0 % LAB HEMATOLOGY METHOD 06/14/2025 4:12 PM EDT [facility] Sodium, Whole Blood 139 136 - 145 mmol/L LAB HEMATOLOGY METHOD 06/14/2025 4:12 PM EDT [facility] Potassium, Whole Blood 3.8 3.6 - 4.9 mmol/L LAB HEMATOLOGY METHOD 06/14/2025 4:12 PM EDT [facility] Chloride, Whole Blood 109(H) 97 - 107 mmol/L LAB HEMATOLOGY METHOD 06/14/2025 4:12 PM EDT [facility] Glucose, Whole Blood 179(H) 74 - 99 mg/dL LAB HEMATOLOGY METHOD 06/14/2025 4:12 PM EDT [facility] Ionized Calcium, Whole Blood 4.6 4.6 - 5.1 mg/dL LAB HEMATOLOGY METHOD 06/14/2025 4:12 PM EDT [facility] Lactate, Arterial, Whole Blood 4.3(H) 0.5 - 1.6 mmol/L LAB HEMATOLOGY METHOD 06/14/2025 4:12 PM EDT [facility] Blood Arterial blood specimen / Unknown Arterial Puncture / Unknown 06/14/2025 3:57 PM EDT 06/14/2025 4:11 PM EDT us Phillip Clark MD LAB BLOOD ORDERABLES Final R esult [facility] [address] [place] [address] * (ABNORMAL) Blood gas panel with oximetry, mixed venous (06/14/2025 3:00 PM EDT) pH, Mixed Venous 7.28(L) 7.32 - 7.43 LAB HEMATOLOGY METHOD 06/14/2025 3:24 PM EDT [facility] pCO2, Mixed Venous 47 40 - 55 mmHg LAB HEMATOLOGY METHOD 06/14/2025 3:24 PM EDT [facility] pO2, Mixed Venous 54(H) 25 - 40 mmHg LAB HEMATOLOGY METHOD 06/14/2025 3:24 PM EDT [facility] SO2, Measured, Mixed Venous 84(H) 65 - 80 % LAB HEMATOLOGY METHOD 06/14/2025 3:24 PM EDT [facility] Bicarbonate, Calculated, Mixed Venous 22 22 - 26 mmol/L LAB HEMATOLOGY METHOD 06/14/2025 3:24 PM EDT [facility] Base Excess, Mixed Venous -4.7(L) -2.0 - 3.0 mmol/L LAB HEMATOLOGY METHOD 06/14/2025 3:24 PM EDT [facility] Hematocrit, Whole Blood 43.0 40.0 - 51.0 % LAB HEMATOLOGY METHOD 06/14/2025 3:24 PM EDT [facility] Sodium, Whole Blood 139 136 - 145 mmol/L LAB HEMATOLOGY METHOD 06/14/2025 3:24 PM EDT [facility] Potassium, Whole Blood 3.7 3.6 - 4.9 mmol/L LAB HEMATOLOGY METHOD 06/14/2025 3:24 PM EDT [facility] Chloride, Whole Blood 110(H) 97 - 107 mmol/L LAB HEMATOLOGY METHOD 06/14/2025 3:24 PM EDT [facility] Ionized Calcium, Whole Blood 4.6 4.6 - 5.1 mg/dL LAB HEMATOLOGY METHOD 06/14/2025 3:24 PM EDT [facility] Glucose, Whole Blood 149(H) 74 - 99 mg/dL LAB HEMATOLOGY METHOD 06/14/2025 3:24 PM EDT [facility] Oxyhemoglobin, Mixed Venous, Whole Blood 81.9(H) 40.0 - 70.0 % LAB HEMATOLOGY METHOD 06/14/2025 3:24 PM EDT [facility] Hemoglobin Reduced, Mixed Venous, Whole Blood 16.1 % LAB HEMATOLOGY METHOD 06/14/2025 3:24 PM EDT [facility] Total Hemoglobin, Mixed Venous, Whole Blood 14.0 13.7 - 17.5 g/dL LAB HEMATOLOGY METHOD 06/14/2025 3:24 PM EDT [facility] Blood Mixed venous blood specimen / Unknown Venipuncture / Unknown 06/14/2025 3:00 PM EDT 06/14/2025 3:23 PM EDT us Phillip Clark MD LAB BLOOD ORDERABLES Final R esult [facility] [address] [place] [address] * XR Abdomen 1 View (06/14/2025 2:57 [...] Detected Not Detected 06/15/2025 12:46 PM EDT [facility] Swab (Axilla and Groin) Non-blood Collection / Unknown 06/14/2025 2:37 PM EDT 06/14/2025 3:10 PM EDT Narrative [facility] - 06/15/2025 12:46 PM EDT This PCR assay was developed and its performance characteristics determined by [facility] as appropriate for clinical purposes. This assay has not been cleared or approved by the FDA, but is performed in a CLIA regulated laboratory that is qualified to perform high-complexity testing. us Phillip Clark MD LAB MICROBIOLOGY - GENERAL O RDERABLES Final Result [facility] [address] [place] [address] * Multi Drug Resistance Test (06/14/2025 2:37 PM EDT) Culture No growth at day 1 06/15/2025 4:03 PM EDT [facility] Swab (Nares and Smita Rectal) Non-blood Collection / Unknown 06/14/2025 2:37 PM EDT 06/14/2025 3:10 PM EDT Narrative [facility] - 06/15/2025 4:03 PM EDT This test was developed and its performance characteristics determined by the [facility]. Although the media is FDA-approved, it is not FDA-approved for all specimen types submitted. The FDA has determined that such clearance or approval is not necessary. This test is used for surveillance purposes. It should not be regarded as investigational or for research. The [facility] is certified under the Clinical Laboratory Improvement Amendments of 1988 (CLIA-88) as qualified to perform high complexity clinical laboratory testing. Phillip Clark MD LAB MICROBIOLOGY - GENERAL O RDERABLES Final Result [facility] [address] [place] [address] * (ABNORMAL) Blood gas, arterial (06/14/2025 2:37 PM EDT) pH, Arterial 7.31 7.31 - 7.42 LAB HEMATOLOGY METHOD 06/14/2025 2:58 PM EDT [facility] pCO2, Arterial 42 32 - 45 mmHg LAB HEMATOLOGY METHOD 06/14/2025 2:58 PM EDT [facility] pO2, Arterial 154 >80 mmHg LAB HEMATOLOGY METHOD 06/14/2025 2:58 PM EDT [facility] SO2, Measured, Arterial 100(H) 94 - 98 % LAB HEMATOLOGY METHOD 06/14/2025 2:58 PM EDT [facility] Base Excess, Arterial -5.1(L) -2.0 - 3.0 mmol/L LAB HEMATOLOGY METHOD 06/14/2025 2:58 PM EDT [facility] Bicarbonate, Calculated, Arterial 21(L) 22 - 26 mmol/L LAB HEMATOLOGY METHOD 06/14/2025 2:58 PM EDT [facility] Hematocrit, Whole Blood 43.5 40.0 - 51.0 % LAB HEMATOLOGY METHOD 06/14/2025 2:58 PM EDT [facility] Sodium, Whole Blood 139 136 - 145 mmol/L LAB HEMATOLOGY METHOD 06/14/2025 2:58 PM EDT [facility] Potassium, Whole Blood 3.6 3.6 - 4.9 mmol/L LAB HEMATOLOGY METHOD 06/14/2025 2:58 PM EDT [facility] Chloride, Whole Blood 110(H) 97 - 107 mmol/L LAB HEMATOLOGY METHOD 06/14/2025 2:58 PM EDT [facility] Glucose, Whole Blood 131(H) 74 - 99 mg/dL LAB HEMATOLOGY METHOD 06/14/2025 2:58 PM EDT [facility] Ionized Calcium, Whole Blood 4.7 4.6 - 5.1 mg/dL LAB HEMATOLOGY METHOD 06/14/2025 2:58 PM EDT [facility] Lactate, Arterial, Whole Blood 5.0(H) 0.5 - 1.6 mmol/L LAB HEMATOLOGY METHOD 06/14/2025 2:58 PM EDT [facility] Blood Arterial blood specimen / Unknown Arterial Puncture / Unknown 06/14/2025 2:37 PM EDT 06/14/2025 2:57 PM EDT us Phillip Clark MD LAB BLOOD ORDERABLES Final R esult [facility] [address] [place] [address] * ECG Adult - Upon Admissoin to CVICU (06/14/2025 2:36 PM EDT) EKG DIAGNOSIS CLASS Abnormal MUSE ECG Ventricular Rate 61 BPM MUSE ECG Atrial Rate 61 BPM MUSE ECG TX Interval 176 ms MUSE ECG QRSD Interval 154 ms MUSE ECG QT Interval 520 ms MUSE ECG QTC Interval 523 ms MUSE ECG P [place] 58 degrees MUSE ECG R [place] 113 degrees MUSE ECG T Wave [place] -67 degrees MUSE ECG Diagnosis Sinus rhythm with occasional ventricular-paced complexes MUSE ECG Diagnosis Suspect unspecified pacemaker failure MUSE ECG Diagnosis Nonspecific intraventricular block MUSE ECG Diagnosis Minimal voltage criteria for LVH, may be normal variant ( Francis product ) MUSE ECG Diagnosis Abnormal ECG MUSE ECG Diagnosis MUSE ECG Diagnosis Confirmed by Brenton Mejia ([id number]) on 06/14/2025 3:39:18 PM MUSE ECG 06/14/2025 2:36 PM EDT 06/14/2025 3:39 PM EDT Phillip Clark MD ECG ORDERABLES Final Result Performing Organization Address City/[facility]/ZIP Co de Phone Number MUSE ECG * Potassium, Plasma (06/14/2025 2:36 PM EDT) [facility] Potassium, Plasma 3.8 3.6 - 4.9 mmol/L 06/14/2025 4:13 PM EDT [facility] Comment:Hemolyzed, result ma y be falsely increased. Blood Venous blood specimen / Unknown Venipuncture / Unknown 06/14/2025 2:36 PM EDT 06/14/2025 3:20 PM EDT Phillip Clark MD LAB BLOOD ORDERABLES Final R esult Performing Organization Address [facility] Co de Phone Number [facility] [address] [place] [address] * Hematocrit (06/14/2025 2:36 PM EDT) [facility] HCT 42.6 40.0 - 51.0 % LAB HEMATOLOGY METHOD 06/14/2025 4:38 PM EDT [facility] Blood Venous blood specimen / Unknown Venipuncture / Unknown 06/14/2025 2:36 PM EDT 06/14/2025 4:17 PM EDT Phillip Clark MD LAB BLOOD ORDERABLES Final R esult Performing Organization Address City/[facility] Co de Phone Number [facility] [address] [place] [address] * Hemoglobin (06/14/2025 2:36 PM EDT) HGB 13.9 13.7 - 17.5 g/dL LAB HEMATOLOGY METHOD 06/14/2025 4:38 PM EDT [facility] Blood Venous blood specimen / Unknown Venipuncture / Unknown 06/14/2025 2:36 PM EDT 06/14/2025 4:17 PM EDT Phillip Clark MD LAB BLOOD ORDERABLES Final R esult Performing Organization Address City/[facility]/ZIP Co de Phone Number [facility] [address] [place] [address] * APTT (06/14/2025 2:36 PM EDT) Pathologist [facility] aPTT 29 25 - 35 sec LAB COAGULATION METHOD 06/14/2025 4:11 PM EDT [facility] Blood Venous blood specimen / Unknown Venipuncture / Unknown 06/14/2025 2:36 PM EDT 06/14/2025 3:18 PM EDT Phillip Clark MD LAB BLOOD ORDERABLES Final R esult Performing Organization Address City/[facility] Co de Phone Number [facility] [address] [place] [address] * (ABNORMAL) Protime-INR (06/14/2025 2:36 PM EDT) Pathologist [facility] Prothrombin Time 16.6(H) 12.0 - 14.3 sec LAB COAGULATION METHOD 06/14/2025 4:11 PM EDT [facility] INR 1.3(H) 0.9 - 1.1 LAB COAGULATION METHOD 06/14/2025 4:11 PM EDT [facility] Blood Venous blood specimen / Unknown Venipuncture / Unknown 06/14/2025 2:36 PM EDT 06/14/2025 3:18 PM EDT Narrative [facility] - 06/14/2025 4:11 PM EDT OPTIMAL INR RANGES FOR PATIENT ON ORAL ANTICOAGULANT THERAPY Prevention of venous thromboembolism INR 2.0 to 3.0 In patients with heart disease: Atrial fibrillation INR 2.0 to 3.0 Valvular heart disease INR 2.0 to 3.0 Tissue heart valves INR 2.0 to 3.0 Mechanical prosthetic valves INR 2.5 to 3.5 Prevention of recurrent MA INR 2.5 to 3.5 Phillip Clark MD LAB BLOOD ORDERABLES Final R esult Performing Organization Address [facility]/[place] [address] * (ABNORMAL) Phosphorus (06/14/2025 2:36 PM EDT) Phosphorus, Plasma 2.3(L) 2.5 - 4.5 mg/dL 06/14/2025 4:13 PM EDT [facility] Blood Venous blood specimen / Unknown Venipuncture / Unknown 06/14/2025 2:36 PM EDT 06/14/2025 3:20 PM EDT Phillip Clark MD LAB BLOOD ORDERABLES Final R esult Performing Organization Address [facility] [place] [address] * (ABNORMAL) Magnesium (06/14/2025 2:36 PM EDT) [facility] Magnesium, Plasma 3.2(H) 1.9 - 2.4 mg/dL 06/14/2025 6:55 PM EDT [facility] Blood Venous blood specimen / Unknown Venipuncture / Unknown 06/14/2025 2:36 PM EDT 06/14/2025 3:20 PM EDT Phillip Clark MD LAB BLOOD ORDERABLES Final R esult Performing Organization Address City/[facility]/[place] [address] * (ABNORMAL) Basic metabolic panel (06/14/2025 2:36 PM EDT) Glucose, Plasma 134(H) 74 - 99 mg/dL 06/14/2025 4:13 PM EDT [facility] BUN, Plasma 14 8 - 23 mg/dL 06/14/2025 4:13 PM EDT [facility] Creatinine, Plasma 0.83 0.70 - 1.20 mg/dL 06/14/2025 4:13 PM EDT [facility] BUN/Creatinine Ratio 17 06/14/2025 4:13 PM EDT [facility] Sodium, Plasma 140 136 - 145 mmol/L 06/14/2025 4:13 PM EDT [facility] Potassium, Plasma 3.8 3.6 - 4.9 mmol/L 06/14/2025 4:13 PM EDT [facility] Comment:Hemolyzed, result ma y be falsely increased. Chloride, Plasma 108(H) 97 - 107 mmol/L 06/14/2025 4:13 PM EDT [facility] CO2, Plasma 19(L) 22 - 29 mmol/L 06/14/2025 4:13 PM EDT [facility] Anion Gap 13 6 - 16 mmol/L 06/14/2025 4:13 PM EDT [facility] Total Calcium, Plasma 8.3(L) 8.9 - 10.2 mg/dL 06/14/2025 4:13 PM EDT [facility] eGFRcr 94.7 mL/min/1.7 3m*2 06/14/2025 4:13 PM EDT [facility] Comment:Reported eGFRcr in m L/min/1.73m2 is based the CKD-EPI 2020 equation that does not use a race coefficient. Blood Venous blood specimen / Unknown Venipuncture / Unknown 06/14/2025 2:36 PM EDT 06/14/2025 3:20 PM EDT us Phillip Clark MD LAB BLOOD ORDERABLES Final R esult [facility] [address] [place] [address] * (ABNORMAL) CBC (06/14/2025 2:36 PM EDT) WBC Count 15.83(H) 3.70 - 10.30 10*3/uL LAB HEMATOLOGY METHOD 06/14/2025 4:38 PM EDT [facility] RBC Count 4.98 4.60 - 6.10 10*6/uL LAB HEMATOLOGY METHOD 06/14/2025 4:38 PM EDT [facility] HGB 13.9 13.7 - 17.5 g/dL LAB HEMATOLOGY METHOD 06/14/2025 4:38 PM EDT [facility] HCT 42.6 40.0 - 51.0 % LAB HEMATOLOGY METHOD 06/14/2025 4:38 PM EDT [facility] Platelet Count 160 155 - 369 10*3/uL LAB HEMATOLOGY METHOD 06/14/2025 4:38 PM EDT [facility] MCV 86 79 - 98 fL LAB HEMATOLOGY METHOD 06/14/2025 4:38 PM EDT [facility] MCH 27.9 26.0 - 32.0 pg LAB HEMATOLOGY METHOD 06/14/2025 4:38 PM EDT [facility] MCHC 32.6 30.7 - 35.5 g/dL LAB HEMATOLOGY METHOD 06/14/2025 4:38 PM EDT [facility] RDW 15.2(H) 11.5 - 14.5 % LAB HEMATOLOGY METHOD 06/14/2025 4:38 PM EDT [facility] MPV 10.3 8.8 - 12.5 fL LAB HEMATOLOGY METHOD 06/14/2025 4:38 PM EDT [facility] nRBC 0.0 <=0.0 per 100 WBCs LAB HEMATOLOGY METHOD 06/14/2025 4:38 PM EDT [facility] Blood Venous blood specimen / Unknown Venipuncture / Unknown 06/14/2025 2:36 PM EDT 06/14/2025 4:17 PM EDT us Phillip Clark MD LAB BLOOD ORDERABLES Final R esult [facility] [address] [place] [address] * (ABNORMAL) POCT arterial blood gas gem (06/14/2025 2:00 PM EDT) pH, Arterial 7.35 7.31 - 7.42 06/14/2025 2:[address] [facility] pCO2, Arterial 38 32 - 45 mm Hg 06/14/2025 2:02 PM [facility] pO2, Arterial 376 >80 mm Hg 06/14/2025 2:02 PM [facility] SO2, Arterial 100(H) 94 - 98 % 06/14/2025 2:[address] [facility] Base Excess, Arterial -4.2(L) -2 - 3 mmol/L 06/14/2025 2:02 PM [facility] HCO3, Arterial 21.0(L) 22 - 26 mmol/L 06/14/2025 2:[address] [facility] Total Hemoglobin, Arterial, Whole Blood 14.5 13.7 - 17.5 g/dL 06/14/2025 2:02 PM [facility] Hematocrit, Arterial 44.0 40 - 51.0 % 06/14/2025 2:02 PM [facility] Sodium, Arterial 136 136 - 145 mmol/L 06/14/2025 2:02 PM [facility] Potassium, Arterial 3.4(L) 3.6 - 4.9 mmol/L 06/14/2025 2:02 PM [facility] Chloride, Whole Blood 105 97 - 107 mmol/L 06/14/2025 2:02 PM [facility] Glucose, Arterial 138(H) 74 - 99 mg/dL 06/14/2025 2:02 PM [facility] Ionized Calcium, Arterial 4.9 4.6 - 5.1 mg/dL 06/14/2025 2:02 PM [facility] Lactate, Arterial 4.2(H) 0.5 - 1.6 mmol/L 06/14/2025 2:[address] [facility] Body Temperature 37.0 Celsius 06/14/2025 2:02 PM [facility] pH, Temp Corrected, Arterial 7.35 7.31 - 7.42 06/14/2025 2:02 PM [facility] pCO2, Temp Corrected, Arterial 38 32 - 45 mm Hg 06/14/2025 2:[address] [facility] pO2, Temp Corrected, Arterial 376 >80 mm Hg 06/14/2025 2:[address] [facility] Tube Handler ID Ricki [email or web address] 06/14/2025 2:[address] [facility] Blood Whole blood specimen / Unknown 06/14/2025 2:00 PM EDT 06/14/2025 2:02 PM EDT Phillip Clark MD LAB POINT OF CARE TE ST DOCKED DEVICE UNSOLICITED RESULTS Final Result [facility] [address] [place] [address] * (ABNORMAL) POCT arterial blood gas gem (06/14/2025 1:22 PM EDT) pH, Arterial 7.34 7.31 - 7.42 06/14/2025 1:[address] [facility] pCO2, Arterial 41 32 - 45 mm Hg 06/14/2025 1:[address] [facility] pO2, Arterial 518 >80 mm Hg 06/14/2025 1:[address] [facility] SO2, Arterial 100(H) 94 - 98 % 06/14/2025 1:[address] [facility] Base Excess, Arterial -3.5(L) -2 - 3 mmol/L 06/14/2025 1:[address] [facility] HCO3, Arterial 22.1 22 - 26 mmol/L 06/14/2025 1:[address] [facility] Total Hemoglobin, Arterial, Whole Blood 13.2(L) 13.7 - 17.5 g/dL 06/14/2025 1:[address] [facility] Hematocrit, Arterial 40.0 40 - 51.0 % 06/14/2025 1:[address] [facility] Sodium, Arterial 139 136 - 145 mmol/L 06/14/2025 1:[address] [facility] Potassium, Arterial 3.3(L) 3.6 - 4.9 mmol/L 06/14/2025 1:[address] [facility] Chloride, Whole Blood 104 97 - 107 mmol/L 06/14/2025 1:[address] [facility] Glucose, Arterial 137(H) 74 - 99 mg/dL 06/14/2025 1:23 PM EDT [facility] Ionized Calcium, Arterial 4.2(L) 4.6 - 5.1 mg/dL 06/14/2025 1:23 PM [facility] Lactate, Arterial 3.0(H) 0.5 - 1.6 mmol/L 06/14/2025 1:23 PM [facility] Body Temperature 37.0 Celsius 06/14/2025 1:23 PM EDT [facility] pH, Temp Corrected, Arterial 7.34 7.31 - 7.42 06/14/2025 1:[address] [facility] pCO2, Temp Corrected, Arterial 41 32 - 45 mm Hg 06/14/2025 1:[address] [facility] pO2, Temp Corrected, Arterial 518 >80 mm Hg 06/14/2025 1:[address] [facility] Tube Handler ID Ricki Zamarripa 06/14/2025 1:[address] [facility] Blood Whole blood specimen / Unknown 06/14/2025 1:22 PM EDT 06/14/2025 1:23 PM EDT us Phillip Clark MD LAB POINT OF CARE TE ST DOCKED DEVICE UNSOLICITED RESULTS Final Result Performing Organization Address City/State/[facility] Co de Phone Number [facility] [address] [place] [id number] * (ABNORMAL) POCT arterial blood gas gem (06/14/2025 12:52 PM EDT) pH, Arterial 7.40 7.31 - 7.42 06/14/2025 12:54 PM EDT [facility] pCO2, Arterial 35 32 - 45 mm Hg 06/14/2025 12:[address] [facility] pO2, Arterial 399 >80 mm Hg 06/14/2025 12:54 PM EDT [facility] SO2, Arterial 100(H) 94 - 98 % 06/14/2025 12:54 PM EDT [facility] Base Excess, Arterial -2.6(L) -2 - 3 mmol/L 06/14/2025 12:54 PM EDT [facility] HCO3, Arterial 21.7(L) 22 - 26 mmol/L 06/14/2025 12:54 PM EDT [facility] Total Hemoglobin, Arterial, Whole Blood 11.7(L) 13.7 - 17.5 g/dL 06/14/2025 12:[address] [facility] Hematocrit, Arterial 35.0(L) 40 - 51.0 % 06/14/2025 12:[address] [facility] Sodium, Arterial 134(L) 136 - 145 mmol/L 06/14/2025 12:[address] [facility] Potassium, Arterial 4.2 3.6 - 4.9 mmol/L 06/14/2025 12:[address] [facility] Chloride, Whole Blood 107 97 - 107 mmol/L 06/14/2025 12:[address] [facility] Glucose, Arterial 148(H) 74 - 99 mg/dL 06/14/2025 12:[address] [facility] Ionized Calcium, Arterial 4.1(L) 4.6 - 5.1 mg/dL 06/14/2025 12:[address] [facility] Lactate, Arterial 2.2(H) 0.5 - 1.6 mmol/L 06/14/2025 12:[address] [facility] Body Temperature 37.0 Celsius 06/14/2025 12:[address] [facility] pH, Temp Corrected, Arterial 7.40 7.31 - 7.42 06/14/2025 12:[address] [facility] pCO2, Temp Corrected, Arterial 35 32 - 45 mm Hg 06/14/2025 12:[address] [facility] pO2, Temp Corrected, Arterial 399 >80 mm Hg 06/14/2025 12:[address] [facility] Tube Handler ID Jean Claude Staley 06/14/2025 12:[address] [facility] Blood Whole blood specimen / Unknown 06/14/2025 12:52 PM EDT 06/14/2025 12:54 PM EDT us Phillip Clark MD LAB POINT OF CARE TE ST DOCKED DEVICE UNSOLICITED RESULTS Final Result Performing Organization Address City/State/[facility] Co de Phone Number [facility] [address] [place] [id number] * POCT ACT (06/14/2025 12:43 PM EDT) [facility] ACT+ (HIGH RANGE) 98 68 - 600 Seconds 06/14/2025 12:[address] [facility] Tube Handler ID Vick Dupont 06/14/2025 12:[address] [facility] ACT Device ID [id number] 06/14/2025 12:[address] [facility] Comment 06/14/2025 12:49 PM EDT [facility] Comment: ACT performed by staff at [...] 12:43 PM EDT 06/14/2025 12:49 PM EDT us Phillip Clark MD LAB POINT OF CARE TE ST DOCKED DEVICE UNSOLICITED RESULTS Final Result Performing Organization Address City/State/[facility] Co de Phone Number [facility] [address] LAB 800 [place] [address] * (ABNORMAL) POCT arterial blood gas gem (06/14/2025 12:16 PM EDT) [facility] pH, Arterial 7.42 7.31 - 7.42 06/14/2025 12:[address] [facility] pCO2, Arterial 36 32 - 45 mm Hg 06/14/2025 12:[address] [facility] pO2, Arterial 358 >80 mm Hg 06/14/2025 12:[address] [facility] SO2, Arterial 99(H) 94 - 98 % 06/14/2025 12:[address] [facility] Base Excess, Arterial -0.8 -2 - 3 mmol/L 06/14/2025 12:[address] [facility] HCO3, Arterial 23.4 22 - 26 mmol/L 06/14/2025 12:[address] [facility] Total Hemoglobin, Arterial, Whole Blood 11.3(L) 13.7 - 17.5 g/dL 06/14/2025 12:[address] [facility] Hematocrit, Arterial 34.0(L) 40 - 51.0 % 06/14/2025 12:[address] [facility] Sodium, Arterial 134(L) 136 - 145 mmol/L 06/14/2025 12:[address] [facility] Potassium, Arterial 5.7(H) 3.6 - 4.9 mmol/L 06/14/2025 12:[address] [facility] Chloride, Whole Blood 105 97 - 107 mmol/L 06/14/2025 12:[address] [facility] Glucose, Arterial 119(H) 74 - 99 mg/dL 06/14/2025 12:[address] [facility] Ionized Calcium, Arterial 4.0(L) 4.6 - 5.1 mg/dL 06/14/2025 12:[address] [facility] Lactate, Arterial 1.6 0.5 - 1.6 mmol/L 06/14/2025 12:[address] [facility] Body Temperature 37.0 Celsius 06/14/2025 12:[address] [facility] pH, Temp Corrected, Arterial 7.42 7.31 - 7.42 06/14/2025 12:[address] [facility] pCO2, Temp Corrected, Arterial 36 32 - 45 mm Hg 06/14/2025 12:[address] [facility] pO2, Temp Corrected, Arterial 358 >80 mm Hg 06/14/2025 12:[address] [facility] Tube Handler ID Vick Dupont 06/14/2025 12:[address] [facility] Blood Whole blood specimen / Unknown 06/14/2025 12:16 PM EDT 06/14/2025 12:19 PM EDT us Phillip Clark MD LAB POINT OF CARE TE ST DOCKED DEVICE UNSOLICITED RESULTS Final Result [facility] [address] [place] [address] * (ABNORMAL) POCT arterial blood gas gem (06/14/2025 12:06 PM EDT) pH, Arterial 7.39 7.31 - 7.42 06/14/2025 12:[address] [facility] pCO2, Arterial 40 32 - 45 mm Hg 06/14/2025 12:[address] [facility] pO2, Arterial 378 >80 mm Hg 06/14/2025 12:[address] [facility] SO2, Arterial 100(H) 94 - 98 % 06/14/2025 12:[address] [facility] Base Excess, Arterial -0.7 -2 - 3 mmol/L 06/14/2025 12:[address] [facility] HCO3, Arterial 24.2 22 - 26 mmol/L 06/14/2025 12:[address] [facility] Total Hemoglobin, Arterial, Whole Blood 11.5(L) 13.7 - 17.5 g/dL 06/14/2025 12:[address] [facility] Hematocrit, Arterial 35.0(L) 40 - 51.0 % 06/14/2025 12:[address] [facility] Sodium, Arterial 134(L) 136 - 145 mmol/L 06/14/2025 12:[address] [facility] Potassium, Arterial 5.0(H) 3.6 - 4.9 mmol/L 06/14/2025 12:09 PM [facility] Chloride, Whole Blood 105 97 - 107 mmol/L 06/14/2025 12:09 PM [facility] Glucose, Arterial 123(H) 74 - 99 mg/dL 06/14/2025 12:09 PM [facility] Ionized Calcium, Arterial 4.2(L) 4.6 - 5.1 mg/dL 06/14/2025 12:[address] [facility] Lactate, Arterial 1.2 0.5 - 1.6 mmol/L 06/14/2025 12:[address] [facility] Body Temperature 37.0 Celsius 06/14/2025 12:[address] [facility] pH, Temp Corrected, Arterial 7.39 7.31 - 7.42 06/14/2025 12:[address] [facility] pCO2, Temp Corrected, Arterial 40 32 - 45 mm Hg 06/14/2025 12:[address] [facility] pO2, Temp Corrected, Arterial 378 >80 mm Hg 06/14/2025 12:09 PM EDT [facility] Tube Handler ID Vick Dupont 06/14/2025 12:09 PM EDT [facility] Blood Whole blood specimen / Unknown 06/14/2025 12:06 PM EDT 06/14/2025 12:09 PM EDT us Phillip Clark MD LAB POINT OF CARE TE ST DOCKED DEVICE UNSOLICITED RESULTS Final Result Performing Organization Address City/[facility]/ZIP Co de Phone Number [facility] [address] [place] [address] * (ABNORMAL) QPLUS (06/14/2025 11:55 AM EDT) [...] Seconds 06/14/2025 12:12 PM EDT [facility] Tube Handler ID Ricki Zamarripa 06/14/2025 12:12 PM EDT [facility] Device ID [id number] 06/14/2025 12:12 PM EDT [facility] Whole Blood 06/14/2025 11:5 5 AM EDT 06/14/2025 12:12 PM EDT Narrative [facility] - 06/14/2025 12:[address]: No Clot Detected us Phillip Clark MD LAB POINT OF CARE TE ST DOCKED DEVICE UNSOLICITED RESULTS Final Result Performing Organization Address City/[facility]/ZIP Co de Phone Number [facility] [address] [place] [address] * POCT ACT (06/14/2025 11:54 AM EDT) ACT+ (HIGH RANGE) 510 68 - 600 Seconds 06/14/2025 12:[address] [facility] Tube Handler ID Vick Dupont 06/14/2025 12:[address] [facility] ACT Device ID [id number] 06/14/2025 12:[address] [facility] Comment 06/14/2025 12:07 PM EDT [facility] Comment: ACT performed by staff at [...] UNSOLICITED RESULTS Final Result Performing Organization Address City/State/[facility] Co de Phone Number [facility] [address] [facility] 800 [place] [address] * (ABNORMAL) POCT arterial blood gas gem (06/14/2025 11:33 AM EDT) [facility] pH, Arterial 7.37 7.31 - 7.42 06/14/2025 11:[address] [facility] pCO2, Arterial 43 32 - 45 mm Hg 06/14/2025 11:[address] [facility] pO2, Arterial 380 >80 mm Hg 06/14/2025 11:[address] [facility] SO2, Arterial 99(H) 94 - 98 % 06/14/2025 11:[address] [facility] Base Excess, Arterial -0.5 -2 - 3 mmol/L 06/14/2025 11:[address] [facility] HCO3, Arterial 24.9 22 - 26 mmol/L 06/14/2025 11:[address] [facility] Total Hemoglobin, Arterial, Whole Blood 11.5(L) 13.7 - 17.5 g/dL 06/14/2025 11:[address] [facility] Hematocrit, Arterial 35.0(L) 40 - 51.0 % 06/14/2025 11:[address] [facility] Sodium, Arterial 134(L) 136 - 145 mmol/L 06/14/2025 11:[address] [facility] Potassium, Arterial 5.6(H) 3.6 - 4.9 mmol/L 06/14/2025 11:[address] [facility] Chloride, Whole Blood 103 97 - 107 mmol/L 06/14/2025 11:[address] [facility] Glucose, Arterial 123(H) 74 - 99 mg/dL 06/14/2025 11:[address] [facility] Ionized Calcium, Arterial 4.2(L) 4.6 - 5.1 mg/dL 06/14/2025 11:[address] [facility] Lactate, Arterial 1.0 0.5 - 1.6 mmol/L 06/14/2025 11:[address] [facility] Body Temperature 37.0 Celsius 06/14/2025 11:[address] [facility] pH, Temp Corrected, Arterial 7.37 7.31 - 7.42 06/14/2025 11:[address] [facility] pCO2, Temp Corrected, Arterial 43 32 - 45 mm Hg 06/14/2025 11:[address] [facility] pO2, Temp Corrected, Arterial 380 >80 mm Hg 06/14/2025 11:[address] [facility] Tube Handler ID Vick Dupont 06/14/2025 11:[address] [facility] Blood Whole blood specimen / Unknown 06/14/2025 11:33 AM EDT 06/14/2025 11:35 AM EDT us Phillip Clark MD LAB POINT OF CARE TE ST DOCKED DEVICE UNSOLICITED RESULTS Final Result [facility] [address] [place] [address] * POCT ACT (06/14/2025 11:24 AM EDT) ACT+ (HIGH RANGE) 520 68 - 600 Seconds 06/14/2025 11:37 AM EDT [facility] Tube Handler ID Vick Dupont 06/14/2025 11:[address] [facility] ACT Device ID [id number] 06/14/2025 11:[address] [facility] Comment 06/14/2025 11:37 AM EDT [facility] Comment: ACT performed by staff at [...] ST DOCKED DEVICE UNSOLICITED RESULTS Final Result [facility] [address] [facility] 800 [place] [address] * (ABNORMAL) POCT arterial blood gas gem (06/14/2025 11:03 AM EDT) pH, Arterial 7.40 7.31 - 7.42 06/14/2025 11:[address] [facility] pCO2, Arterial 41 32 - 45 mm Hg 06/14/2025 11:[address] [facility] pO2, Arterial 406 >80 mm Hg 06/14/2025 11:[address] [facility] SO2, Arterial 100(H) 94 - 98 % 06/14/2025 11:[address] [facility] Base Excess, Arterial 0.5 -2 - 3 mmol/L 06/14/2025 11:[address] [facility] HCO3, Arterial 25.4 22 - 26 mmol/L 06/14/2025 11:[address] [facility] Total Hemoglobin, Arterial, Whole Blood 11.9(L) 13.7 - 17.5 g/dL 06/14/2025 11:[address] [facility] Hematocrit, Arterial 36.0(L) 40 - 51.0 % 06/14/2025 11:[address] [facility] Sodium, Arterial 133(L) 136 - 145 mmol/L 06/14/2025 11:04 AM EDT [facility] Potassium, Arterial 5.3(H) 3.6 - 4.9 mmol/L 06/14/2025 11:[address] [facility] Chloride, Whole Blood 103 97 - 107 mmol/L 06/14/2025 11:[address] [facility] Glucose, Arterial 121(H) 74 - 99 mg/dL 06/14/2025 11:[address] [facility] Ionized Calcium, Arterial 4.2(L) 4.6 - 5.1 mg/dL 06/14/2025 11:04 AM EDT [facility] Lactate, Arterial 1.0 0.5 - 1.6 mmol/L 06/14/2025 11:[address] [facility] Body Temperature 37.0 Celsius 06/14/2025 11:[address] [facility] pH, Temp Corrected, Arterial 7.40 7.31 - 7.42 06/14/2025 11:[address] [facility] pCO2, Temp Corrected, Arterial 41 32 - 45 mm Hg 06/14/2025 11:[address] [facility] pO2, Temp Corrected, Arterial 406 >80 mm Hg 06/14/2025 11:04 AM EDT [facility] Tube Handler ID Vick Dupont 06/14/2025 11:[address] [facility] Blood Whole blood specimen / Unknown 06/14/2025 11:03 AM EDT 06/14/2025 11:04 AM EDT Phillip Clark MD LAB POINT OF CARE TE ST DOCKED DEVICE UNSOLICITED RESULTS Final Result [facility] [address] [place] [address] * POCT ACT (06/14/2025 10:57 AM EDT) ACT+ (HIGH RANGE) 569 68 - 600 Seconds 06/14/2025 11:09 AM EDT [facility] Tube Handler ID Vick Dupont 06/14/2025 11:09 AM EDT [facility] ACT Device ID [id number] 06/14/2025 11:09 AM EDT [facility] Comment 06/14/2025 11:09 AM EDT [facility] Comment: ACT performed by staff at [...] ST DOCKED DEVICE UNSOLICITED RESULTS Final Result [facility] [address] [facility] 800 [place] [address] * (ABNORMAL) POCT arterial blood gas gem (06/14/2025 10:33 AM EDT) pH, Arterial 7.39 7.31 - 7.42 06/14/2025 10:[address] [facility] pCO2, Arterial 41 32 - 45 mm Hg 06/14/2025 10:[address] [facility] pO2, Arterial 349 >80 mm Hg 06/14/2025 10:[address] [facility] SO2, Arterial 99(H) 94 - 98 % 06/14/2025 10:[address] [facility] Base Excess, Arterial -0.2 -2 - 3 mmol/L 06/14/2025 10:[address] [facility] HCO3, Arterial 24.8 22 - 26 mmol/L 06/14/2025 10:[address] [facility] Total Hemoglobin, Arterial, Whole Blood 10.9(L) 13.7 - 17.5 g/dL 06/14/2025 10:[address] [facility] Hematocrit, Arterial 33.0(L) 40 - 51.0 % 06/14/2025 10:[address] [facility] Sodium, Arterial 135(L) 136 - 145 mmol/L 06/14/2025 10:[address] [facility] Potassium, Arterial 4.8 3.6 - 4.9 mmol/L 06/14/2025 10:[address] [facility] Chloride, Whole Blood 103 97 - 107 mmol/L 06/14/2025 10:[address] [facility] Glucose, Arterial 116(H) 74 - 99 mg/dL 06/14/2025 10:[address] [facility] Ionized Calcium, Arterial 4.1(L) 4.6 - 5.1 mg/dL 06/14/2025 10:[address] [facility] Lactate, Arterial 1.3 0.5 - 1.6 mmol/L 06/14/2025 10:[address] [facility] Body Temperature 37.0 Celsius 06/14/2025 10:[address] [facility] pH, Temp Corrected, Arterial 7.39 7.31 - 7.42 06/14/2025 10:[address] [facility] pCO2, Temp Corrected, Arterial 41 32 - 45 mm Hg 06/14/2025 10:[address] [facility] pO2, Temp Corrected, Arterial 349 >80 mm Hg 06/14/2025 10:[address] [facility] Tube Handler ID Vick Dupont 06/14/2025 10:[address] [facility] Blood Whole blood specimen / Unknown 06/14/2025 10:33 AM EDT 06/14/2025 10:34 AM EDT Phillip Clark MD LAB POINT OF CARE TE ST DOCKED DEVICE UNSOLICITED RESULTS Final Result Performing Organization Address City/State/[facility] Co de Phone Number [facility] [address] [place] [address] * (ABNORMAL) POCT ACT (06/14/2025 10:26 AM EDT) ACT+ (HIGH RANGE) >600(H) 68 - 600 Seconds 06/14/2025 10:[address] [facility] Tube Handler ID Vick Dupont 06/14/2025 10:[address] [facility] ACT Device ID [id number] 06/14/2025 10:[address] [facility] Comment 06/14/2025 10:40 AM EDT [facility] Comment: ACT performed by staff at [...] ST DOCKED DEVICE UNSOLICITED RESULTS Final Result [facility] [address] [place] [address] * Surgical Pathology Exam (06/14/2025 10:18 AM EDT) Case Report Surgical Pathology Case: [id number] Authorizing Provider: Phillip Clark MD Collected: 06/14/2025 1018 Ordering Location: [facility] A OPERATING ROOM Received: 06/14/2025 1413 Pathologist: Beth Lake MD Specimen: Heart, aortic valve leaflets 06/15/2025 11:44 AM EDT [facility] Final Diagnosis A. AORTIC VALVE LEAFLETS, REPLACEMENT: - FIBROSIS AND MYXOID DEGENERATION. 06/15/2025 11:44 AM EDT [facility] at 1144 EDT Clinical Information Severe aortic regurgitation [I35.1] 06/15/2025 11:44 AM EDT [facility] Gross Description A. AORTIC VALVE LEAFLETS Received fresh and placed in formalin labeled aortic valve leaflets are 2 white-montez soft cardiac leaflets ranging in size from 2.5-4.0 cm in greatest dimension. Airdox Fitter sections are submitted in cassette A1. Cold Time: 3h 55m April Santos 06/15/2025 11:44 AM EDT [facility] Tissue Heart structure / Unknown 06/14/2025 10:18 AM EDT 06/14/2025 2:13 PM EDT Comment:Pre-op diagnosis: Severe aortic regurgitation [I35.1] us Phillip Clark MD LAB PATHOLOGY ORDERABLES Fin al Result [facility] [address] [place] [address] * (ABNORMAL) POCT arterial blood gas gem (06/14/2025 10:08 AM EDT) pH, Arterial 7.40 7.31 - 7.42 06/14/2025 10:[address] [facility] pCO2, Arterial 40 32 - 45 mm Hg 06/14/2025 10:[address] [facility] pO2, Arterial 410 >80 mm Hg 06/14/2025 10:[address] [facility] SO2, Arterial 100(H) 94 - 98 % 06/14/2025 10:[address] [facility] Base Excess, Arterial 0.0 -2 - 3 mmol/L 06/14/2025 10:[address] [facility] HCO3, Arterial 24.8 22 - 26 mmol/L 06/14/2025 10:[address] [facility] Total Hemoglobin, Arterial, Whole Blood 10.1(L) 13.7 - 17.5 g/dL 06/14[facility]25 [facility] Hematocrit, Arterial 30.0(L) 40 - 51.0 % 06/14/2025 10:[address] [facility] Sodium, Arterial 133(L) 136 - 145 mmol/L 06/14/2025 10[facility] Potassium, Arterial 4.7 3.6 - 4.9 mmol/L 06/14/2025 10:[address] [facility] Chloride, Whole Blood 104 97 - 107 mmol/L 06/14/2025 10:[facility] Glucose, Arterial 122(H) 74 - 99 mg/dL 06/14/2025 10:[address] [facility] Ionized Calcium, Arterial 3.9(L) 4.6 - 5.1 mg/dL 06/14/2025 10:[address] [facility] Lactate, Arterial 1.5 0.5 - 1.6 mmol/L 06/14/2025 10:[address] [facility] Body Temperature 37.0 Celsius 06/14/2025 10:[address] [facility] pH, Temp Corrected, Arterial 7.40 7.31 - 7.42 06/14/2025 10:17 AM EDT [facility] pCO2, Temp Corrected, Arterial 40 32 - 45 mm Hg 06/14/2025 10:17 AM EDT [facility] pO2, Temp Corrected, Arterial 410 >80 mm Hg 06/14/2025 10:17 AM EDT [facility] Tube Handler ID Vick Dupont 06/14/2025 10:17 AM EDT [facility] Blood Whole blood specimen / Unknown 06/14/2025 10:08 AM EDT 06/14/2025 10:17 AM EDT Phillip Clark MD LAB POINT OF CARE TE ST DOCKED DEVICE UNSOLICITED RESULTS Final Result Performing Organization Address City/[facility] Co de Phone Number [facility] [address] [place] [address] * (ABNORMAL) POCT ACT (06/14/2025 10:04 AM EDT) [facility] Signature ACT+ (HIGH RANGE) >600(H) 68 - 600 Seconds 06/14/2025 10:19 AM EDT [facility] Tube Handler ID Vick Dupont 06/14/2025 10:[address] [facility] ACT Device ID [id number] 06/14/2025 10:19 AM EDT [facility] Comment 06/14/2025 10:19 AM EDT [facility] Comment: ACT performed by staff at [...] UNSOLICITED RESULTS Final Result Performing Organization Address City/[facility]/ZIP Co de Phone Number [facility] [address] [facility] 800 [place] [address] * POCT ACT (06/14/2025 8:13 AM EDT) ACT+ (HIGH RANGE) 90 68 - 600 Seconds 06/14/2025 8:[address] [facility] Tube Handler ID Kevin Hernandez 06/14/2025 8:[address] [facility] ACT Device ID [id number] 06/14/2025 8:[address] [facility] Comment 06/14/2025 8:20 AM EDT [facility] Comment: ACT performed by staff at [...] UNSOLICITED RESULTS Final Result [facility] [address] [place], [place] [id number] [place] [address] LAB [address] [place] [address] * (ABNORMAL) POCT arterial blood gas gem (06/14/2025 8:13 AM EDT) pH, Arterial 7.38 7.31 - 7.42 06/14/2025 8:[address] [facility] pCO2, Arterial 40 32 - 45 mm Hg 06/14/2025 8:[address] [facility] pO2, Arterial 91 >80 mm Hg 06/14/2025 8:[address] [facility] SO2, Arterial 99(H) 94 - 98 % 06/14/2025 8:[address] [facility] Base Excess, Arterial -1.3 -2 - 3 mmol/L 06/14/2025 8:[address] [facility] HCO3, Arterial 23.7 22 - 26 mmol/L 06/14/2025 8:[address] [facility] Total Hemoglobin, Arterial, Whole Blood 14.5 13.7 - 17.5 g/dL 06/14/2025 8:[address] [facility] Hematocrit, Arterial 44.0 40 - 51.0 % 06/14/2025 8:[address] [facility] Sodium, Arterial 135(L) 136 - 145 mmol/L 06/14/2025 8:[address] [facility] Potassium, Arterial 4.1 3.6 - 4.9 mmol/L 06/14/2025 8:[address] [facility] Chloride, Whole Blood 103 97 - 107 mmol/L 06/14/2025 8:[address] [facility] Glucose, Arterial 95 74 - 99 mg/dL 06/14/2025 8:[address] [facility] Ionized Calcium, Arterial 4.7 4.6 - 5.1 mg/dL 06/14/2025 8:[address] [facility] Lactate, Arterial 0.8 0.5 - 1.6 mmol/L 06/14/2025 8:[address] [facility] Body Temperature 37.0 Celsius 06/14/2025 8:[address] [facility] pH, Temp Corrected, Arterial 7.38 7.31 - 7.42 06/14/2025 8:[address] [facility] pCO2, Temp Corrected, Arterial 40 32 - 45 mm Hg 06/14/2025 8:[address] [facility] pO2, Temp Corrected, Arterial 91 >80 mm Hg 06/14/2025 8:[address] [facility] Tube Handler ID Lb Coreas 06/14/2025 8:[address] [facility] Blood Whole blood specimen / Unknown 06/14/2025 8:13 AM EDT 06/14/2025 8:15 AM EDT us Phillip Clark MD LAB POINT OF CARE TE ST DOCKED DEVICE UNSOLICITED RESULTS Final Result [facility] [address] [place] [id number] * Type and Screen (06/14/2025 6:27 AM [...] Final Result Performing Organization Address [facility] Co de Phone Number [facility] [address] [place] [address], * POCT glucose meter (06/14/2025 6:23 AM EDT) POCT Glucose 93 74 - 99 mg/dL [...] 06/14/2025 6:24 AM EDT [facility] Tube Handler ID Kassi Sinha 06/14/2025 6:24 AM EDT [facility] Device ID [id number] 06/14/2025 6:24 AM EDT [facility] Specimen Type POC Venous 06/14/2025 6:24 AM EDT [facility] Blood Venous blood specimen / Unknown 06/14/2025 6:23 AM EDT 06/14/2025 6:24 AM EDT Phillip Clark MD LAB POINT OF CARE TE ST DOCKED DEVICE UNSOLICITED RESULTS Final Result Performing Organization Address City/[facility] Co de Phone Number [facility] [address] [place] [address] documented in this encounter Visit Diagnoses Diagnosis Aortic valve regurgitation- Primary Aortic valve disorders Severe aortic regurgitation Other secondary hypertension S/P AVR BMI 30.0-30.9,adult High cholesterol Pure hypercholesterolemia Hypertension Unspecified essential hypertension CAD (coronary artery disease) Coronary atherosclerosis of unspecified type of vessel, [place] or graft History of coronary angioplasty with [...] plasma protein metabolism Pre-diabetes Other abnormal glucose documented in this encounter Admitting Diagnoses Diagnosis [...] 1 g, Intravenous, Once, 1 dose, On Fri06/16/25 at 0230, at 240 mL/hr, Administer over [...] 75 mg, Oral, Daily, First dose on Fri06/16/25 [...] at 1505, Until Fri06/20/25 at 1627, Routine, Moderate/Severe Pain > or =3: CPOT; > or =4: FLACC, PAINAD, NPASS, NRS, Potter-Holley Faces; > or =5: DVPRS, NIPS Given 06/17/2025 7:46 PM EDT 5 mg [...] 8 hours, 3 doses, First dose on 06/16/25 at 2045, Last dose on Fri06/17/25 at [...] Dumas, HESHAM)1609 (Given - Provider: Brittaney Dumas, RN)2002 (Given - Provider: Lori Molina RN)2359 (Not [...] Dumas RN) 0848 (Given - Provider: Vicente Hussein RN) 0855 (Given - Provider: Agustina Mello RN) docusate sodium (Colace) capsule 200 mg 200 mg, Oral, 2 times daily, First dose (after last modification) on Fri06/17/25 at 2100, Until Discontinued, Routine, Recovery(Phase II-Outpatient)/On Unit(Inpatient) 0821 (Given - Provider: Brittaney Dumas RN)2003 (Given - Provider: Lori Molina RN) 0847 (Given - Provider: Vicente Hussein RN)2017 (Not Given - Provider: Any Garcia RN [...] 1030, Routine 0956 (Given - Provider: Brittaney Dumas RN) Apollo powder 1 packet 1 packet, Oral, 2 times daily, First dose on Fri06/15/25 at 2100, Until Discontinued, Routine 0822 (Given - Provider: Brittaney Dumas RN)2003 (Not Given - Provider: Lori Molina RN - Reason: Patient/family refused) 912 (Given - Provider: Vicente Hussein, HESHAM)2017 (Given - Provider: Any Garcia, HESHAM) 0855 (Given - Provider: Agustina Mello RN) losartan (Cozaar) tablet 25 mg 25 mg, Oral, 2 times daily, First dose on Beatris 06/16/25 at 1015, Until Discontinued, Routine 0821 (Given - Provider: Brittaney Dumas RN)2003 (Given - Provider: Lori Molina RN) 0846 (Given - Provider: Vicente Hussein RN)2016 (Given - Provider: Any Garcia RN) 0854 (Given - Provider: Agustina Mello RN) melatonin tablet 9 mg 9 mg, Oral, [...] Brittaney Dumas RN)1608 (Given - Provider: Brittaney Dumas RN)2003 (Given - Provider: Lori Molina RN) 0848 (Given - Provider: Vicente Hussein RN)1513 (Given - Provider: Vicente Hussein RN)2016 (Given - Provider: Any Garcia RN) 0854 (Given - Provider: Agustina Melol RN)1600 (Canceled Entry - Provider: Automatic Discharge Provider - Comment: Automatically canceled at discontinue of medication order) metoprolol tartrate (Lopressor) tablet 25 mg (CANCELED) 25 mg, Oral, 2 times daily, First dose (after last modification) on Beatris 06/16/25 at 0900, Until Discontinued, Routine 0626 (Given - Provider: Lori Molina RN - Comment: given early per Jason Haji, DO due to vent bigeminey)0822 (Not Given - Provider: Brittaney Dumas RN - Reason: Hold for condition: must add comment - Comment: dose given by river expedition guide rn @ [address] [place], [place] [address]Daiana instructed flex o writer operator to hold 0900 dose)2003 (Given - Provider: Lori Molina RN) 846 (Given - Provider: Vicetne Hussein RN) metoprolol tartrate (Lopressor) tablet 25 mg (COMPLETED) 25 mg, Oral, Once, 1 dose, On 06/18/25 at 1300, Routine 1235 (Given - Provider: Brittaney Dumas RN) metoprolol tartrate (Lopressor) tablet 25 mg (COMPLETED) 25 mg, Oral, Once, 1 dose, On 06/19/25 at 0330, Routine 0243 (Given - Provider: Lori Molina RN) metoprolol tartrate (Lopressor) tablet 25 mg 25 mg, Oral, Every 6 hours, First dose (after last modification) on 06/19/25 at 1500, Until Discontinued, Routine 1513 (Given - Provider: Vicente Hussein, HESHAM)2017 (Given - Provider: Any Garcia RN) 0400 (Given - Provider: Any Garcia RN)0855 (Given - Provider: Agustina Mello RN)1500 (Canceled Entry - Provider: Automatic Discharge Provider - Comment: Automatically canceled at discontinue of medication order) mupirocin (Bactroban) 2 % ointment 1 Application (COMPLETED) Each Nostril, 2 times daily, 10 doses, First dose on Fri06/14/25 at 2100, Last dose on 06/19/25 at 0900, Routine 0821 (Given - Provider: Brittaney Dumas RN)2003 (Given - Provider: Lori R Tracy, RN) 0847 (Given - Provider: Vicente Hussein RN) pantoprazole (Protonix) EC tablet 40 mg 40 mg, Oral, Daily, First dose on Fri06/15/25 at 1930, Until Discontinued, Routine 0821 (Given [...] Lori Molina RN)1236 (Given - Provider: Brittaney Dumas RN)213 (Given - Provider: Lori Molina RN) polyethylene glycol (Miralax) packet 17 g 17 g, Oral, Daily, First dose on Beat[place] 06/16/25 at 1115, Until Discontinued, Routine 0821 (Given - Provider: Brittaney Dumas RN) 0846 (Given - Provider: Vicente Hussein RN) 0855 (Given - Provider: Agustina Mello, HESHAM) potassium chloride CR (Klor-Con) ER tablet 40 mEq (COMPLETED) 40 mEq, Oral, Once, 1 dose, On 06/18/25 at 1045, Routine 0956 (Given - Provider: Brittaney Dumas RN) rosuvastatin (Crestor) tablet 40 mg 40 mg, Oral, Nightly, First dose on Fri06/15/25 at 2100, Until Discontinued, Routine 2003 (Given - Provider: Lori Molina RN) 2016 (Given - Provider: Any Garcia, HESHAM) senna (Senokot) tablet 17.2 mg 17.2 mg, Oral, 2 times daily, First dose (after last modification) on Fri06/17/25 at 2100, Until Discontinued, Routine, Recovery(Phase II-Outpatient)/On Unit(Inpatient) 0821 (Given - Provider: Brittaney Dumas RN)2002 (Given - Provider: Lori Molina RN) 0846 (Given - Provider: Vicente Hussein RN)2017 (Not Given - Provider: Any Garcia RN - Reason: Patient/family refused) 0855 (Not Given - Provider: Agustina Mello, HESHAM - Reason: Patient/family refused) sodium chloride 0.9 % flush 10 mL 10 mL, Intravenous, Every 12 hours, First dose on Fri06/14/25 at 2045, Until Discontinued, Routine 0822 (Given - Provider: Brittaney Dumas, HESHAM)2004 (Given - Provider: Lori Molina RN) 0837 (Given - Provider: Vicente Hussein RN)195 (Given - Provider: Any Garcia RN) 0855 (Given - Provider: Agustina Mello, HESHAM) warfarin (Coumadin) tablet 4 mg 4 mg, Oral, Daily, First dose (after last modification) on 06/18/25 at 1700, Until Discontinued, Routine 1758 (Given - Provider: Brittaney Dumas RN) 1655 [...] RN)2003 (Given - Provider: Lori Molina RN) 043 (Given - Provider: Lori Molina RN)1001 (Given - Provider: Vicetne Hussein RN)1703 (Given - Provider: Vicente Hussein RN) 0026 (Given - Provider: Any Garcia RN)0622 (Given - Provider: Ayn Garcia RN - Comment: epic unavailable in room--downtime)1150 (Given - Provider: Agustina Mello, HESHAM) oxyCODONE (Roxicodone) immediate release tablet 5 mg(Linked Group 1) 5 mg, Oral, Every 6 hours PRN, Starting on Fri06/14/25 at 1505, Until Fri06/20/25 at 1627, Routine, Moderate/Severe Pain > or =3: CPOT; > or =4: FLACC, PAINAD, NPASS, NRS, Potter-Holley Faces; > or =5: DVPRS, NIPS 0140 (See Alternative - Provider: Lori Molina, RN)0829 (See Alternative - Provider: Brittaney Dumas, HESHAM)2004 (See Alternative - Provider: Lori Molina, HESHAM) 0431 (See Alternative - Provider: Lori Molina RN)1001 (See Alternative - Provider: Vicente Hussein, HESHAM)1703 (See Alternative - Provider: Vicente Hussein, HESHAM) 0026 (See Alternative - Provider: Any Garcia, HESHAM)0622 (See Alternative - Provider: Any Garcia, HESHAM)1150 (See Alternative - Provider: Agustina Mello, HESHAM) simethicone (Mylicon) chewable tablet 80 mg 80 [...] at 1505, Until Fri06/20/25 at 1627, Routine, Moderate/Severe Pain > or =3: CPOT; > or =4: FLACC, PAINAD, NPASS, NRS, Potter-Holley Faces; > or =5: DVPRS, NIPS Or oxyCODONE (Roxicodone) immediate release tablet 10 [...] documented as of this encounter Care Teams Director Supply Relationship Specialty [place] [id number] PCP - General 02/28/25 documented as of this encounter
--- OUTSIDE RECORDS SUMMARY | 2025-06-14 06:45 | XMS_ITS | Encounter Summary ---
Author Organization [facility] Address [address] [id number] Care Team Providers Care Traffic Control Signaler Name Role Phone aKmran Singh MD Primary Care Provider [phone] Reason for Visit * Auth/Cert (Routine) Specialty Diagnoses / Procedures Referred By Nathalia t Referred To Contact Diagnoses Severe aortic regurgitation Severe aortic regurgitation [I35.1] Procedures AR -AORT GRF W/CARD BYP F/AORTIC DISSECTION AORTIC ROOT RECONSTRUCTION Phillip Clark MD [address] [facility] [address] [place] [address] Phone: tel: fax: [facility] [address] [place] [address] Phone: tel: Referral ID Status Reason Start Date Expiration Date Visits Re quested Visits Authorized [id number] 1 1 Encounter Details Date Type Department Care Team (Late st Contact Info) Description 06/14/2025 7:45 AM EDT Anesthesia Event [facility] [address] [place] [address] Jean Claude Staley MD [address] [place] [address] Ricki Zamarripa DO [address] [id number] Anesthesia Record Procedure Summary Procedure Name Responsible [...] 06/15/25; Removal Time: 1212 06/14/25 0832 by Rciki Zmaarripa, DO 06/15/25 1212 by Bony Thomas RN [...] any time in the past 12 m [facility], were you homeless or living in a residential (including now)? No 06/15/2025 [facility] Utilities Answer Date Recorded In the past 12 months has th e [employer], gas, oil, or water [employer] threatened to shut off services in your [...] supine Prep: ChloraPrep Patient monitoring: heart rate, oracle pl sql developer and continuous pulse ox Anesthesia block type: [...] portions of the procedure(s) and immediately available [facility] services the entire duration. 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 New valve is well seated with appropriate movement of valve leaflets. No perivalvular leak. Mean PG of 2mm Hg and AT 55 msec. Aorta: intact after decannulation. Findings were communicated with surgeon. * Anesthesia Procedure Notes - Ricki Zamarripa DO - 06/14/2025 8:54 AM EDT [...] portions of the procedure(s) and immediately available [facility] services the entire duration. See [...] MD Other anesthesia staff: Ricki Zamarripa DO Cosigned by Jean Claude Staley [...] 05/05/25 88.7 kg (195 lb 8.8 oz) Coats Body Weight: Coats body weight: 66.1 kg (145 lb 11.6 [...] fibrillation, CHF, dysrhythmias, hyperlipidemia, pacemaker or past DE. hypertension: Exercise tolerance is 1 flight of [...] PM EST Appointment Cardiac Imaging [address] [place] [address] 07/20/2026 1:40 PM EST Office Visit [facility] [address], [address] [place] [address] Phillip Clark MD [address] [place] [address] documented as of this encounter Procedures Procedure Name Priority Date/Time Associated Diagnosis Comments PB POINT OF CARE IMAGING PLACEHOLDER Routine 06/14/2025 2:16 PM EDT PB ANESTHESIA NON-TIMED PROCEDURE PLACEHOLDER Routine 06/14/2025 2:15 PM EDT PB POINT OF CARE IMAGING PLACEHOLDER Routine 06/14/2025 8:32 AM EDT AR INSERT/PLACE FLOW DIRECT CATH Routine 06/14/2025 8:32 AM EDT ANESTHESIA ULTRASOUND GUIDED Routine 06/14/2025 8:32 AM EDT PB ANESTHESIA NON-TIMED PROCEDURE PLACEHOLDER Routine 06/14/2025 8:32 AM EDT AR AN CENTRAL LINE DOUBLE LUMEN Routine 06/14/2025 8:32 AM EDT PB ANESTHESIA PLACEHOLDER Routine 06/14/2025 8:16 AM EDT AR AN ELECTIVE ENDOTRACHEAL AIRWAY Routine 06/14/2025 8:16 [...] supine Prep: ChloraPrep Patient monitoring: heart rate, oracle pl sql developer and continuous pulse ox Anesthesia block type: [...] mcg/kg/min) RV: same as baseline 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 New valve is well seated with appropriate movement of valve leaflets. No perivalvular leak. Mean PG of 2mm Hg and AT 55 msec. Aorta: intact after decannulation. Findings were communicated with surgeon. us Jean Claude Staley MD ANESTHESIA ORDERABLES Edited Res ult - Final * AR AN CENTRAL LINE DOUBLE LUMEN, PB ANESTHESIA NON-TIMED PROCEDURE PLACEHOLDER, ANESTHESIA ULTRASOUND GUIDED, AR INSERT/PLACE FLOW DIRECT CATH, PB POINT OF [...] MD ANESTHESIA ORDERABLES Final Resu lt * AR AN ELECTIVE ENDOTRACHEAL AIRWAY, PB ANESTHESIA PLACEHOLDER [...] Atraumatic. No change to dentition. Result [facility] Jean Claude Staley MD ANESTHESIA ORDERABLES Final [...] documented as of this encounter Care Teams Traffic Control Signaler Relationship Specialty [place] [id number] PCP - General 02/28/25 documented as of this encounter
--- OUTSIDE RECORDS SUMMARY | 2025-06-14 06:45 | XMS_ITS | Encounter Summary ---
Author Organization [facility] Address [address] [id number] Care Team Providers Care Wetlands Technician Name Role Phone Kamran Singh MD Primary Care Provider [phone] Reason for Visit * Auth/Cert (Routine) Specialty Diagnoses / Procedures Referred By Nathalia t Referred To Contact Diagnoses Severe aortic regurgitation Severe aortic regurgitation [I35.1] Procedures NH -AORT GRF W/CARD BYP F/AORTIC DISSECTION AORTIC ROOT RECONSTRUCTION Phillip Clark MD [address] [address] Phone: tel: fax: [facility] [address] [place] [address] Phone: tel: Referral ID Status Reason Start Date Expiration Date Visits Re quested Visits Authorized [id number] 1 1 Encounter Details Date Type Department Care Team (Late st Contact Info) Description 06/14/2025 7:45 AM EDT - 06/14/2025 8:15 PM EDT Surgery [facility] [address] [place] [id number] Phillip Clark MD [address] [facility] [place] [address] Aortic valve replacement [51118 (CPT )] Surgery Details Date/Time Status Location [...] any time in the past 12 m [facility], were you homeless or living in a residential (including now)? No 06/15/2025 [facility] Utilities Answer Date Recorded In the past 12 months has th e Qzzr, gas, oil, or water [place] threatened to shut off services in your [...] a referral and prefers to attend at [facility]. [facility] will contact Mr. Forrest to discuss and [...] 2. Eligibility: Heart valve surgery 3. Exceptions/exclusions: [facility] Cardiac Rehab Exclusions: None 4. Referral: [facility] Cardiac Rehab Referral: Patient agreed with referral to the cardiac rehabilitation program at [facility] in [place], [place], phone number [phone]. 5. Information sent: Information Sent: Appropriate information will be sent to the receiving cardiac rehabilitation program.: * Progress Notes - Oumou Berger - 06/20/2025 10:15 AM EDT Case Management Discharge Note Bradley Forrest 69 y.o. male CSN: [id number] Admission: 06/14/2025 5:18 AM Primary Problem: Aortic valve regurgitation Primary Mud Mixer: Primary Caregiver: Self Assistance Available at Discharge: Current Outpatient/Agency/Support Group: DME Availability of Care Givers (#Hours): Other (comment) (As needed) Family/Mud Mixer(s) Willingness Assessed to care for patient at home: Yes Family/Mud Mixer(s) Readiness Assessed to care for patient at [...] Recieved By: patient Follow-up: Jolynn Pollard APRN [facility] Cardiology [address] [place] [address] [address], [address] [address] Go on 08/22/2025 Your cardiology appointment is on August 22 at 11am Please arrive 15 minutes early and bring UPDATED medication list. [address] [facility] [phone] Go on 06/22/2025 Your first appointment for your Warfarin/Coumadin management is this FridayJune 22 at 11:30am. Please report to [facility] front admission desk and tell them you are checking in to the Pharmacy Anticoagulation Clinic. The credit reference clerk will call the pharmacist who will meet you in the lobby and escort you to the clinic. Please bring all medications you are taking and your insurance card. If you have any issues please call [phone] ext: [phone] and then choose option 2. Discharge Transportation: Transportation Anticipated: family or friend will provide Transportation Home at Discharge: Family/Friend will Provide Follow Up Transport: Transportation Needed to Follow up Appoinments: Family/Friend will Provide Additional Comments: SW spoke with primary team this date who indicate the pt is medically stable for DC this date and does not require further [facility]-based care. Pt to DC home with , to transport. Covering RNCM ordered rollator from [facility] to be delivered to bedside. No further SW concerns identified at this time. SW will continue to remain available and will follow up with DC planning and needs as appropriate. DIMPLE Osullivan * Discharge Summary - Angie Abarca ACTIVITIES ASSISTANT - 06/20/2025 9:40 AM EDT Hospitalization Admit Date/Time: 06/14/2025 5:18 AM Admitting Attending: Phillip Clark Discharge Date: 06/20/2025 Discharge Attending Physician: Phillip Clark MD PCP name and Address: Kamran Singh MD [address] [place] [address] / [place] [address] Referring provider name and address: No referring [...] [facility] [place], [place] - [address] [facility] [address] acetaminophen 325 MG tablet clopidogrel 75 MG [...] Center 07/07/2025 2:40 PM Phillip Clark MD [facility] Test Results Pending At Discharge N/A Pertinent [...] Plan Anticoagulation Plan Warfarin Pharmacist Managed?: No [facility] Warfarin Dosing Protocol Followed?: No Reason for Protocol Departure: CT Surgery Bridging Agent in Conjunction With Warfarin? : No INR Monitoring Frequency: Monitor INR daily Patient Education : Complete and documented Warfarin dosing and adjustment per CT surgery provider. Transitions of Care Outpatient provider managing warfarin after [facility] discharge: TBD - possibly [facility] Recommended date for outpatient INR assessment: TBD - of note, enoxparin copay $0 for 7 day supply Will continue to follow patient's clinical progress daily. Frank BernalD, BCCP Clinical Pharmacist - Cardiothoracic Surgery Available via Vigoda * Progress Notes - Phillip Clark MD [...] Ongoing, Progressing Intervention: Promote Activity and Functional [place] Flowsheets (Taken 06/19/20251704 by Vicente Hussein RN) Activity Assistance Provided: assistance, stand-by Adaptive Equipment Use: use encouraged Self-Care Promotion: independence encouraged Problem: Self-Care Deficit Goal: Improved Ability to Complete Activities of Daily Living Outcome: Ongoing, Progressing Intervention: Promote Activity and Functional [place] Flowsheets (Taken 06/19/20251704 by Vicente Hussein, HESHAM) [...] Ongoing, Progressing Intervention: Promote Activity and Functional [place] Flowsheets (Taken 06/19/20251704) Activity Assistance Provided: assistance, [...] Ongoing, Progressing Intervention: Promote Activity and Functional [place] Flowsheets (Taken 06/19/2025 1705) Activity Assistance Provided: [...] Plan Anticoagulation Plan Warfarin Pharmacist Managed?: No [facility] Warfarin Dosing Protocol Followed?: No Reason for Protocol Departure: CT Surgery Bridging Agent in Conjunction With Warfarin? : No Goal PTT/anti-Xa: 2.5-3.5 INR Monitoring Frequency: Monitor INR daily Patient Education : Complete and documented Warfarin dosing and adjustment per CT surgery provider. Transitions of Care Outpatient provider managing warfarin after [facility] discharge: TBD - possibly clinic Recommended date [...] rhythm - continue warfarin CT surgery pager [phone] [1] acetaminophen, 650 mg, Oral, q4h DEMETRIUS [...] independently per patient Taken 06/18/2025 0800 by Brtitaney Dumas RN Number of Repetitions (IS): 10 [...] Ongoing, Progressing Intervention: Promote Activity and Functional [place] Flowsheets (Taken 06/19/2025344) Activity Assistance Provided: assistance, stand-by Self-Care Promotion: independence encouraged Problem: Self-Care Deficit Goal: Improved Ability to Complete Activities of Daily Living Outcome: Ongoing, Progressing Intervention: Promote Activity and Functional [place] Flowsheets (Taken 06/19/2025344) Activity Assistance Provided: assistance, [...] from the original note were not included. [id number] Tratamiento para contracciones ventriculares prematuras (CVP) Las [...] Confusi??n. Last Reviewed Date: 2024 00:00:00 ?? 3412-1124 [employer]. All rights reserved. This information is not intended as a substitute for professional medical care. Always follow your healthcare professional's instructions. * Gabriel Singh - Brittaney Dumas RN - 06/18/2025 6:29 PM EDT Images from the original note were not included. [id number] C??mo comprender las contracciones ventriculares prematuras (CVP) [...] se??al activa partes cercanas del coraz??n contraer. Snyder permite que el coraz??n se comprima de [...] card??acos anteriores, el coraz??n expulsar?? muypoca mushtaq. Snyder provoca aria sensaci??n de pausa entre latidos. El siguiente latido card??aco suele ser m??s bea, ya que la pausa lo permite que el coraz??n descanse y se llene de mushtaq. Snyder lleva a aria sensaci??n de latido card??aco [...] port??til jameson unos d??as o incluso semanas. Snyder puede ayudar a diagnosticar los CVP que [...] im??genes del coraz??n. ? An??lisis de mushtaq. Snyder se hace para comprobar los electrolitos y concentraciones tiroideas. Last Reviewed Date: 2024 00:00:00 ?? 6910-8111 [employer]. All rights reserved. This information is not intended as a substitute for professional medical care. Always follow your healthcare professional's instructions. * Gabriel OnTRISTAN - Brittaney Dumas RN - 06/18/2025 6:29 PM EDT Images from the original note were not included. [id number] Tratamiento para contracciones ventriculares prematuras (CVP) Las [...] Confusi??n. Last Reviewed Date: 2024 00:00:00 ?? 3810-9183 [employer]. All rights reserved. This information is not intended as a substitute for professional medical care. Always follow your healthcare professional's instructions. * Gabriel GonsalezFHALONZO - Brittaney Dumas RN - 06/18/2025 6:29 PM EDT Images from the original note were not included. [id number] C??mo comprender las contracciones ventriculares prematuras (CVP) [...] se??al activa partes cercanas del coraz??n contraer. Snyder permite que el coraz??n se comprima de [...] card??acos anteriores, el coraz??n expulsar?? muypoca mushtaq. Snyder provoca aria sensaci??n de pausa entre latidos. El siguiente latido card??aco suele ser m??s bea, ya que la pausa lo permite que el coraz??n descanse y se llene de mushtaq. Snyder lleva a aria sensaci??n de latido card??aco [...] port??til jameson unos d??as o incluso semanas. Snyder puede ayudar a diagnosticar los CVP que [...] im??genes del coraz??n. ? An??lisis de mushtaq. Snyder se hace para comprobar los electrolitos y concentraciones tiroideas. Last Reviewed Date: 2024 00:00:00 ?? 4560-8633 [employer]. All rights reserved. This information is not intended as a substitute for professional medical care. Always follow your healthcare professional's instructions. * Gabriel Singh - Brittaney Dumas RN - 06/18/2025 6:28 PM EDT Images from the original note were not included. 63464 Treatment for Premature Ventricular Contractions (PVCs) Premature [...] confusion Last Reviewed Date: 2024 00:00:00 ?? 1219-0504 [employer]. All rights reserved. This information is not intended as a substitute for professional medical care. Always follow your healthcare professional's instructions. * Gabriel Lori Hazelily HESHAM Webster - 06/18/2025 6:28 PM EDT Images from the original note were not included. 68966 Understanding Premature Ventricular Contractions (PVCs) Premature ventricular [...] weeks. ? Insertable (or implantable) cardiac cath lab radiology technologist. This small device is implanted under the [...] levels. Last Reviewed Date: 2024 00:00:00 ?? 8668-4601 [employer]. All rights reserved. This information is not [...] Plan Anticoagulation Plan Warfarin Pharmacist Managed?: No [facility] Warfarin Dosing Protocol Followed?: No Bridging Agent in Conjunction With Warfarin? : Yes Ordered Agents: Enoxaparin Bridging Agent Dose: 70mg BID INR Monitoring Frequency: Monitor INR daily Patient Education : Complete and documented Warfarin dosing and adjustment per CT surgery provider. Transitions of Care Outpatient provider managing warfarin after [facility] discharge: TBD - possibly clinic Recommended date [...] Ongoing, Progressing Intervention: Promote Activity and Functional [place] Flowsheets (Taken 06/18/202558) Activity Assistance Provided: assistance, 1 person Self-Care Promotion: independence encouraged Problem: Self-Care Deficit Goal: Improved Ability to Complete Activities of Daily Living Outcome: Ongoing, Progressing Intervention: Promote Activity and Functional [place] Flowsheets (Taken 06/18/202558) Activity Assistance Provided: assistance, [...] from the original note were not included. [id number] Warfarin IMPORTANT WARNING: Warfarin may cause severe [...] doctor or pharmacist will give you the fuel cell builder's patient information sheet (Medication Guide) when you begin treatment with warfarin and each time you refill your prescription. Read the information carefully and ask your doctor or pharmacist if you have any questions. You can also visit the Food and Drug Administration (FDA) website (https://www.fda.gov/downloads/Drugs/DrugSafety/ziw769147.pdf) or the fuel cell builder's website to obtain the Medication Guide. [...] Echinacea, garlic, Ginkgo biloba, ginseng, goldenseal, and Misenheimer's wort; omeprazole (Prilosec); famotidine (Pepcid AC); aspirin [...] amounts of vitamin K-containing food on a dcgu-mo-yvaq basis. Do not eat large amounts of [...] of all of the prescription and nonprescription (csyy-tal-tuhnuoz) medicines, vitamins, minerals, and dietary supplements you [...] or pharmacist about specific clinical use. The [place] [employer] represents that the information provided hereunder was formulated with a reasonable standard of care, and in conformity with professional standards in the field. The [place] [employer] makes no representations or warranties, express or implied, including, but not limited to, any implied warranty of merchantability and/or fitness for a particular purpose, with respect to such information and specifically disclaims all such warranties. Users are advised that decisions regarding drug therapy are complex medical decisions requiring the independent, informed decision of an appropriate health primary care nurse practitioner, and the information is provided for informational purposes only. The entire monograph for a drug should be reviewed for a thorough understanding of the drug's actions, uses and side effects. The [place] [employer] does not endorse or recommend the use of any drug.The information is not a substitute for medical care. AHFS?? Patient Medication Information?. ?? Copyright, 2023. The [place] [employer] Pharmacists??, [address] [facility], [address], [place], [place]. All Rights Reserved. Duplication for commercial use must be authorized by [facility]. Selected Revisions: February 13, 2017. AHFS?? Patient Medication Information?. ?? Copyright, 2024 * Gabriel Singh - Sydni Munson RN - 06/17/2025 12:42 PM EDT Images from the original note were not included. 44856 Recovery From Heart Surgery: The First Few [...] stop Last Reviewed Date: 2024 00:00:00 ?? 1430-8364 [employer]. All rights reserved. This information is not [...] arms away from your body. * [facility] - Sydni Munson RN - 06/17/2025 12:42 PM EDT Images from the original note were not included. 56863 After Heart Valve Surgery For the first [...] headache Last Reviewed Date: 2023 00:00:00 ?? 9145-9386 [employer]. All rights reserved. This information is not [...] 1st floor of the [facility] for a chest x-ray. Then go [...] your incisions. Do NOT lift, push, or door puller 5 pounds for six weeks. Do [...] Sydni Munson CT Surgery Nurse Navigator at [phone] Friday through Friday 7am- 3:30pm [facility] [phone] after 3:30 pm, weekends and holidays - ask for the CT surgeon preconstruction manager. * Progress Notes - Brooke Valdez PTA - 06/17/2025 11:58 AM EDT Physical Therapy Treatment Patient Name: Bradley Forrest Today's Date: 06/17/2025 Total Treatment Time: 39 min PT Discharge Recommendations: Home with assistance Equipment Recommended: Rollator Subjective The patient states, I am doing okay. Participants in Care Family/Caregiver Present: Yes Family/Caregiver: Spouse, Other (Specify) (sister and brother) Client Services Vice President: Not Applicable Presentation Oxygen: None (Room air) [...] sequencing. Bed Mobility Exam: Rolling/Turning Level of [place]: Minimum assist (75% patient effort) Physical/Nonphysical Assist: Verbal Cues, Set-up required Bed Mobility Exam: Scooting/Bridging Level of [place]: Minimum assist (75% patient's effort) (to scoot to edge of bed with cues to adhere to sternal precautions) Physical/Nonphysical Assist: Verbal Cues, Set-up required Bed Mobility Exam: Supine to Sit Level of [place]: Minimum assist (75% patient's effort) Physical/Nonphysical Assist: Verbal Cues, Set-up required, Additional assist utilized for safety Bed Mobility Exam: Sit to Supine Level of [place]: Minimum assist (75% patient's effort) Physical/Nonphysical Assist: Verbal Cues, Set-up required, Additional assist utilized for safety Transfers Transfer Intervention: Verbal cues provided for correct bilateral hand and foot placement during sit to stand transfers. Transfer Interventions: The patient stood at the sink for hygiene approximately 8-10 minutes with CGA of 1 person. 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 Level of [place] Adaptive Equipment Utilized Comments Feeding Grooming SBA Standing sinkside stood times 8 minutes in bathroom. Bathing Upper Body Dressing Lower Body Dressing Sock Level of Assistance: Moderate assistance, Minimal verbal cues Toileting SBA Toilet IADLs Health Management Community Re-Entry BALANCE Postural Appearance INTERVENTIONS Level of [place] Balance Support Comments Static Sit Standby assist [...] weight shifting to promote safety. Level of [place] Physical/Non-physical Assist Adaptive Equipment Utilized Rolling/ Turning [...] Plan Anticoagulation Plan Warfarin Pharmacist Managed?: No [facility] Warfarin Dosing Protocol Followed?: No Bridging Agent in Conjunction With Warfarin? : Yes Ordered Agents: Enoxaparin Bridging Agent Dose: 70mg BID INR Monitoring Frequency: Monitor INR daily Patient Education : Complete and documented Warfarin dosing and adjustment per CT surgery provider. Transitions of Care Outpatient provider managing warfarin after [facility] discharge: TBD - possibly [facility] Recommended date for outpatient INR assessment: TBD - of note, enoxparin copay $0 for 7 day supply Will continue to follow patient's clinical progress daily. Maria Esther Kent PharmD, ARLEEN, BCCCP, [facility] Critical Care Pharmacist - Cardiothoracic Surgery Contact via secure chat * Gabriel Singh - Maria Esther Kent PharmD - 06/17/2025 9:21 AM EDT Images from the original note were not included. Your Health Checklist: Taking Warfarin Safely - Video Follow this checklist to properly and safely take warfarin. To view the video go to this web address: [email or web address]/[email or web address] Or, scan this QR code with your [...] the video go to this web address: [email or web address] Or, scan this QR code with your smart phone ?? [facility] * Maria Esther Houston PharmD - 06/17/2025 9:21 AM EDT Images from the original note were not included. Warfarin: Your INR Goal - Video Understand what the INR test measures, and what your healthy INR level should be. To view the video go to this web address: [email or web address] Or, scan this QR code with your [...] the video go to this web address: https://bit.ly/9LE7Wzu Or, scan this QR code with your [...] Certain other vegetables and fruits, including asparagus, Malone sprouts, and kiwifruit ? Certain soy products, such as natto (a traditional [place]inean dish of fermented soybeans) Some vegetable oils [...] reduced-fat cheese, served with a whole grain Tanzanian muffin ? A grilled chicken sandwich on whole grain bread with raw spinach*, tomato slices, and mustard ? Oven-roasted fish served with steamed broccoli* and medley of whole grain pasta, carrots, onions,and mushrooms * Foods higher in vitamin K Last Reviewed Date: 2025 00:00:00 ?? 9793-5925 [employer]. All rights reserved. This information is not [...] the video go to this web address: https://bit.ly/1Z1GLzH Or, scan this QR code with your smart phone ?? [facility] * Maria Esther Houston PharmD - 06/17/2025 9:21 AM EDT Images from the original note were not included. [id number] Warfarin IMPORTANT WARNING: Warfarin may cause severe [...] doctor or pharmacist will give you the fuel cell builder's patient information sheet (Medication Guide) when you begin treatment with warfarin and each time you refill your prescription. Read the information carefully and ask your doctor or pharmacist if you have any questions. You can also visit the Food and Drug Administration (FDA) website (https://www.fda.gov/downloads/Drugs/DrugSafety/xmn860569.pdf) or the fuel cell builder's website to obtain the Medication Guide. [...] Echinacea, garlic, Ginkgo biloba, ginseng, goldenseal, and Misenheimer's wort; omeprazole (Prilosec); famotidine (Pepcid AC); aspirin [...] amounts of vitamin K-containing food on a sqjr-kp-gmxs basis. Do not eat large amounts of [...] be awakened, immediately call emergency services at 581. Symptoms of overdose may include the following: [...] of all of the prescription and nonprescription (wzfa-vwd-qgutxcg) medicines, vitamins, minerals, and dietary supplements you [...] or pharmacist about specific clinical use. The [place] [employer] represents that the information provided hereunder was formulated with a reasonable standard of care, and in conformity with professional standards in the field. The [place] [employer], Inc. makes no representations or warranties, express or implied, including, but not limited to, any implied warranty of merchantability and/or fitness for a particular purpose, with respect to such information and specifically disclaims all such warranties. Users are advised that decisions regarding drug therapy are complex medical decisions requiring the independent, informed decision of an appropriate health primary care nurse practitioner, and the information is provided for informational purposes only. The entire monograph for a drug should be reviewed for a thorough understanding of the drug's actions, uses and side effects. The [place] [employer] does not endorse or recommend the use of any drug.The information is not a substitute for medical care. AHFS?? Patient Medication Information?. ?? Copyright, 2023. The [place] [employer] Pharmacists??, [address] [facility], [address], [place], [place]. All Rights Reserved. Duplication for commercial use must be authorized by [facility]. Selected Revisions: February 13, 2017. AHFS?? Patient [...] Ongoing, Progressing Intervention: Promote Activity and Functional [place] Flowsheets (Taken 06/17/2025108) Activity Assistance Provided: assistance, 1 person Self-Care Promotion: independence encouraged Problem: Self-Care Deficit Goal: Improved Ability to Complete Activities of Daily Living Outcome: Ongoing, Progressing Intervention: Promote Activity and Functional [place] Flowsheets (Taken 06/17/2025108) Activity Assistance Provided: assistance, [...] Note Bradley Forrest 69 y.o. male CSN: [id number] Admission: 06/14/2025 5:18 AM Primary Problem: Severe [...] Problem(s): Weaning from mechanically assisted ventilation initiated ([facility]) (Mlhabihp48/20/2025) Arrived intubated and sedated post-op - fast [...] 06/14/25 Brachial 06/14/25 0808 Brachial 2 GCS: [place] Coma Scale Score: 15 Review of Systems [...] post median sternotomy. Interval removal of the Gridley-Ganzcatheter, right IJ sheath remains in place with tip in the mid to distal SVC. No pneumothorax or pleural effusions. Ongoing interstitial edema. 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 Client Services Vice President (if applicable) OBJECTIVE & INTERVENTIONS PAIN Pain [...] ACTIVITY Treatment Minutes 24 TRANSFERS Level of [place] Physical/Non- physical Assist Adaptive Equipment Utilized Sit to Stand Contact guard Verbal Cues, Additional assist utilized for safety, 1 person + 1 person to manage equipment (verbal cuing for sternal precautions) Stand to sit Contact guard Verbal Cues, 1 person + 1 person to manage equipment Interventions BALANCE Postural Appearance Posture: Rounded shoulders Level of [place] Balance Support Interventions Static Sit Standby assist Feet supported Dynamic Sit Contact guard Feet supported Static Stand Standby assist Right upper extremity support, Left upper extremity support Pt with mild dizziness when coming to stand from sitting which subsided with roughly 30 seconds of static standing Dynamic Stand Standby assist Right upper extremity support, Left upper extremity support AMBULATION Level of [place] Distance Adaptive Equipment Utilized Ambulation Standby assist, [...] Plan Anticoagulation Plan Warfarin Pharmacist Managed?: No [facility] Warfarin Dosing Protocol Followed?: No Reason for Protocol Departure: CT Surgery Bridging Agent in Conjunction With Warfarin? : Yes Ordered Agents: Enoxaparin Bridging Agent Dose: Enoxaparin 70mg bid to start 06/16 pm INR Monitoring Frequency: Monitor INR daily Patient Education : Incomplete Warfarin dosing and adjustment per CT surgery provider. Transitions of Care Outpatient provider managing warfarin after [facility] discharge: TBD Recommended date for outpatient INR assessment: TBD Will continue to follow patient's clinical progress daily. Sy Fernández PharmD PGY-2 Cardiology [place] Available via Secure Chat * Progress Notes [...] Ongoing, Progressing Intervention: Promote Activity and Functional [place] Flowsheets Taken 06/15/20251699 by Bony Thomas RN [...] Ongoing, Progressing Intervention: Promote Activity and Functional [place] Flowsheets Taken 06/15/2025 1700 by Bony Thomas RN Activity Assistance Provided: assistance, stand-by Taken 06/14/20252154 by Svetlana Reilly RN Self-Care Promotion: independence encouraged * Consults - Nat Singletary RD - 06/15/2025 2:23 PM EDTAssociated Order(s): IP CONSULT TO NUTRITION SERVICES Adult Nutrition Evaluation Note Bradley Forrest 69 y.o. 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) GI Symptoms: Nausea, Vomiting Edema: Generalized Allergies: [...] 30.07 Weight Evaluation: Obese-Class 1 (BMI 30-34.9) [place] Body Weight (kg): 67.3 Percent [place] Body Weight: 130 Adjusted Body Weight (kg): 72.4 Estimated Needs: Kcal/ K-28 Kcal Provided: Metabolic Cart Study Results: Current Nutrition Intake: Diet Order: Adult Diet Diet Texture: Clear liquid Adult Carbohydrate Restriction: Consistent CHO 2 ([id number] Venkat, 80 g/meal) Fat Restriction: Cardiac Percent Meals Eaten (%): establishing Diet Experience and Nutrition History: Diet Education Provided: Will monitor Pertinent home medications: Jehovah'S Witness needs: Nutrition Focused Physical Exam: Physical exam performed on (date): 06/15 Temples (muscles): None Clavicle (muscle): None Shoulder (muscle): None Orbital (fat): None Triceps (fat): None Energy 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 male CSN: [id number] Admission: 06/14/2025 5:18 AM Primary Problem: Severe aortic regurgitation Yarn Comber reviewed chart and spoke with the patient at bedside to complete this Initial Case Management Assessment. PCP: Kamran Singh MD Emergency Contact: Extended Emergency Contact Information Primary Emergency Contact: Naheed Forrest Address: [address] [place] [address] of [place] Relation: Spouse Insurance: Primary Visit Coverage Payer Plan Sponsor Code Group Number Group Name MARY HERNANDEZ [facility] [id number] Primary Visit Coverage Subscriber Subscriber ID Subscriber Name Subscriber N Subscriber Address [id number] Bradley Forrest [id number] [address] Panda Secondary Visit Coverage Payer Plan Sponsor Code Group Number Group Name MEDICARE MEDICARE A & B Secondary Visit Coverage Subscriber Subscriber ID Subscriber Name Subscriber N Subscriber Address [id number] Bradley Forrest [id number] [address] Panda Patient information: Primary Caregiver: [...] DME Provider: n/a Living Will/Advance Directive/Power of Street Vendor /Guardian: Unable to assess: No Have you [...] prior HH/O2/HD/Abx. PCP is Kamran Singh. Has new test company insurance and uses [facility] pharmacy. Family to transport and assist as [...] Plan Anticoagulation Plan Warfarin Pharmacist Managed?: No [facility] Warfarin Dosing Protocol Followed?: No Reason for Protocol Departure: CT Surgery Bridging Agent in Conjunction With Warfarin? : No INR Monitoring Frequency: Monitor INR daily Patient Education : Incomplete Warfarin dosing and adjustment per CT surgery provider. Transitions of Care Outpatient provider managing warfarin after [facility] discharge: TBD Recommended date for outpatient INR assessment: TBD Will continue to follow patient's clinical progress daily. Sy Fernández, FrankD PGY-2 Cardiology [place] Available via Secure Chat * Assessment & [...] Weaning from mechanically assisted ventilation initiated (CMS/HCC) (Wkowtvln13/20/2025) Arrived intubated and sedated post-op - fast [...] Weaning from mechanically assisted ventilation initiated (CMS/HCC) (Wvcylssw93/20/2025) Arrived intubated and sedated post-op - fast [...] 06/15/2025 Weaning from mechanically assisted ventilation initiated ([facility]) 06/14/2025 Diabetes 05/05/2025 Benign prostatic hyperplasia 05/05/2025 CAD (coronary artery disease) 04/14/2025 History of coronary angioplasty with insertion of stent 04/14/2025 Ascending aortic aneurysm ([facility]) 04/14/2025 Aortic valve regurgitation 04/14/2025 BMI [...] 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) Level of Mobility: Ambulatory- community Mobility [place]: Independent gait without device History of Falls: [...] Mobility Exam: Sit to Supine Level of [place]: Maximum assist (25% patient's effort) Physical/Nonphysical Assist: Verbal Cues, Maximal cues, Additional assist utilized for safety Transfers Transfer Exam: Sit to stand Level of [place]: Moderate assist (50% patient's effort) Physical/Nonphysical Assist: Verbal Cues, Moderate cues, Additional assist utilized for safety Assistive Device: Rollator Transfer Exam: Stand to Sit Level of [place]: Minimum assist (75% patient's effort) Physical/Nonphysical Assist: [...] activity. Standardized Assessments Standardized Assessments Standardized Assessments: [facility] 6-Clicks Mobility Assessment [facility] 6-Clicks Mobility Assessment Difficulty patient has [...] 3-5 steps with a railing?: A little [facility] 6-Clicks Mobility Assessment Total : 16 [...] 06/15/2025 Weaning from mechanically assisted ventilation initiated ([facility]) 06/14/2025 Diabetes 05/05/2025 Benign prostatic hyperplasia 05/05/2025 CAD (coronary artery disease) 04/14/2025 History of coronary angioplasty with insertion of stent 04/14/2025 Ascending aortic aneurysm ([facility]) 04/14/2025 Aortic valve regurgitation 04/14/2025 BMI [...] 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) Level of Mobility: Ambulatory- community Mobility [place]: Independent gait without device History of Falls: [...] Mobility Exam: Sit to Supine Level of [place]: Maximum assist (25% patient's effort) Physical/Nonphysical Assist: Verbal Cues, Maximal cues, Additional assist utilized for safety Transfers Transfer Exam: Sit to stand Level of [place]: Moderate assist (50% patient's effort) Physical/Nonphysical Assist: Verbal Cues, Moderate cues, Additional assist utilized for safety Assistive Device: Rollator Transfer Exam: Stand to Sit Level of [place]: Minimum assist (75% patient's effort) Physical/Nonphysical Assist: [...] continued education to improve carryover. Standardized Assessments [facility] 6-Click Daily Activities Help from Other: Don/Doff Regular Lower Body Clothings: A lot Help From Other: Bathing: A lot Help From Other: Toileting: A lot Help From Other: Don/Doff Upper Body Clothings: Little Help From Other: Grooming: Little Help From Other: Eating Meals: None [facility] 6 Click - Daily Activities Score: [...] of NG tube. Right internal jugular approach Gridley-Shira catheter and mediastinal drain in unchanged position. [...] 1845) * Assessment & Plan Note - Anders Narvaez MD - 06/15/2025 12:23 AM EDTAssociated [...] Problem(s): Weaning from mechanically assisted ventilation initiated ([facility]) (Tazamwcj74/20/2025) Arrived intubated and sedated post-op - fast [...] for analgesia prior to leaving the OR. [facility] services were consulted for management [...] pressure support 8/5 Edited by: Balta Washington, ACTIVITIES ASSISTANT, DNP at 06/14/2025 2253 Lines/Drains/Tubes: Patient Lines/Drains/Airways [...] or Manage Infection Flowsheets Taken 06/14/20252154 by Svetlaan Reilly RN Fever Reduction/Comfort Measures: lightweight clothing [...] Ongoing, Progressing Intervention: Promote Activity and Functional [place] Flowsheets (Taken 06/14/20252154) Activity Assistance Provided: assistance, [...] Weaning from mechanically assisted ventilation initiated (CMS/HCC) (Ldvfqkho39/20/2025) Arrived intubated and sedated post-op - fast [...] for analgesia prior to leaving the OR. [facility] services were consulted for management [...] 06/14/25 1327 Mediastinal less than 1 NG/OG [place] Sump Orogastric 18 Fr Center mouth 06/14/25 [...] Reviewed and otherwise non-contributory. Allergies: Allergies[6] GCS: [place] Coma Scale Score: 15 Review of Systems [...] 2 tablets by mouth every morning. Under [place] law, monthly prescriptions (30 days) can be refilled at 25 days and three-month prescriptions (90 days) at 80 days. Please contact the insurance company with questions if refills are denied. (Patient taking differently: Take 2 tablets by mouth every 4 hours as needed. Under [place] law, monthly prescriptions (30 days) can be [...] Saint [place] mechanical prosthesis. Date: 06/14/25 Location: [place] Name: Bradley Forrest, : 1955, Diagnoses: Pre-op Diagnosis Severe aortic regurgitation Post-op Diagnosis Severe aortic regurgitation Coronary artery disease due to calcified coronary lesion History of coronary angioplasty with insertion of stent Left ventricular enlargement Procedure(s): Median sternotomy, aortic valve replacement using a 25 mm [place] mechanical prosthesis. Attending Surgeon(s): * Phillip Clark - Primary Oil And Gas Specialist(s): * Turner Pablo MD - Fellow Anesthesia: General ASA: IV Blood Administration: Blood Product Administration History None Estimated Blood Loss: 150 mL Drains: Chest Tube Mediastinal 36 Fr (Active) Function -20 cm H2O 06/14/25 1600 Chest Tube Air Leak No 06/14/25 1600 Patency Intervention Tip/tilt 06/14/25 1600 Drainage Description Dark red 06/14/25 1600 NG/OG [place] Sump Orogastric 18 Fr Center mouth (Active) Urethral Catheter Temperature probe 16 Fr. (Active) Implants Type Name Action Serial No. GRAFT PTCH [id number] FELT - [id number] Implanted VALVE ATRIAL 25MM ROTATABL CUF STD PTFE - [id number] - [id number] Implanted [id number] Specimen: Specimens ID Source Frozen? 1 Heart [...] hadstenting of his coronaries. 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 One 36 Portuguese chest tube was placed. Chest tubes and pacing wires were secured to the anterior abdominal wall. The sternum was reapproximated with #7 [id number] stainless steel wires, the fasciawas closed with [...] 2 tablets by mouth every morning. Under [place] law, monthly prescriptions (30 days) can be refilled at 25 days and three-month prescriptions (90 days) at 80 days. Please contact the insurance company with questions if refills are denied. Patient taking differently: Take 2 tablets by mouth every 4 hours as needed. Under [place] law, monthly prescriptions (30 days) can be [...] PM EST Appointment Cardiac Imaging [address] [place] [address] 07/20/2026 1:40 PM EST Office Visit [facility] [address], [address] [place] [address] Phillip Clark MD [address] [place] [address] Pending Results Name Type Priority Associated Diagnoses [...] PANEL, PLASMA Routine 06/16/2025 5:35 PM EDT [facility], E/M 30-74 MINUTES Routine 06/16/2025 [...] PEP THERAPY Routine 06/15/2025 12:00 PM EDT [facility] CRITICAL CARE, E/M 30-74 MINUTES Routine 06/15/2025 [...] 1 VIEW Routine 06/15/2025 2:53 AM EDT [facility] CRITICAL CARE, ADDL 30 MIN Routine 06/15/2025 12:21 AM EDT Other secondary hypertension [facility] CRITICAL CARE, ADDL 30 MIN Routine 06/15/2025 [...] PANEL, ARTERIAL Routine 06/14/2025 6:47 PM EDT [facility] CRITICAL CARE, E/M 30-74 MINUTES Routine 06/14/2025 [...] UNSOLICITED RESULTS Routine 06/14/2025 8:13 AM EDT NH -AORT GRF W/CARD BYP F/AORTIC DISSECTION 06/14/2025 [...] - 99 mg/dL 06/20/2025 2:47 AM EDT [facility] BUN, Plasma 22 8 - 23 mg/dL 06/20/2025 2:47 AM EDT [facility] Creatinine, Plasma 0.85 0.70 - 1.20 mg/dL 06/20/2025 2:47 AM EDT [facility] BUN/Creatinine Ratio 26 06/20/2025 2:47 AM EDT [facility] Sodium, Plasma 131(L) 136 - 145 mmol/L 06/20/2025 2:47 AM EDT [facility] Potassium, Plasma 4.0 3.6 - 4.9 mmol/L 06/20/2025 2:47 AM EDT [facility] Chloride, Plasma 102 97 - 107 mmol/L 06/20/2025 2:47 AM EDT [facility] CO2, Plasma 24 22 - 29 mmol/L 06/20/2025 2:47 AM EDT [facility] Anion Gap 5(L) 6 - 16 mmol/L 06/20/2025 2:47 AM EDT [facility] Total Calcium, Plasma 7.9(L) 8.9 - 10.2 mg/dL 06/20/2025 2:47 AM EDT [facility] eGFRcr 94.1 mL/min/1.7 3m*2 06/20/2025 2:47 AM EDT [facility] Comment:Reported eGFRcr in m L/min/1.73m2 is based the CKD-EPI 2020 equation that does not use a race coefficient. Blood Venous blood specimen / Unknown Venipuncture / Unknown 06/20/2025 1:52 AM EDT 06/20/2025 1:59 AM EDT Phillip Clark MD LAB BLOOD ORDERABLES Final R esult Performing Organization Address City/[facility]/ZIP Co de Phone Number [facility] [address] [place] [address] * Phosphorus (06/20/2025 1:52 AM EDT) Phosphorus, Plasma 2.8 2.5 - 4.5 mg/dL 06/20/2025 2:23 AM EDT [facility] Blood Venous blood specimen / Unknown Venipuncture / Unknown 06/20/2025 1:52 AM EDT 06/20/2025 1:59 AM EDT Phillip Clark MD LAB BLOOD ORDERABLES Final R esult [facility] [address] [place] [address] * (ABNORMAL) Protime-INR (06/20/2025 1:52 AM EDT) Prothrombin Time 30.4(H) 12.0 - 14.3 sec LAB COAGULATION METHOD 06/20/2025 2:29 AM EDT [facility] INR 2.9(H) 0.9 - 1.1 LAB COAGULATION METHOD 06/20/2025 2:29 AM EDT [facility] Blood Venous blood specimen / Unknown Venipuncture / Unknown 06/20/2025 1:52 AM EDT 06/20/2025 1:59 AM EDT Narrative [facility] - 06/20/2025 2:29 AM EDT OPTIMAL INR RANGES FOR PATIENT ON ORAL ANTICOAGULANT THERAPY Prevention of venous thromboembolism INR 2.0 to 3.0 In patients with heart disease: Atrial fibrillation INR 2.0 to 3.0 Valvular heart disease INR 2.0 to 3.0 Tissue heart valves INR 2.0 to 3.0 Mechanical prosthetic valves INR 2.5 to 3.5 Prevention of recurrent NH INR 2.5 to 3.5 us Phillip Clark MD LAB BLOOD ORDERABLES Final R esult Performing Organization Address City/[facility] Co de Phone Number [facility] [address] [place] [address] * Magnesium (06/20/2025 1:52 AM EDT) Magnesium, Plasma 2.2 1.9 - 2.4 mg/dL 06/20/2025 2:23 AM EDT [facility] Blood Venous blood specimen / Unknown Venipuncture / Unknown 06/20/2025 1:52 AM EDT 06/20/2025 1:59 AM EDT Phillip Clark MD LAB BLOOD ORDERABLES Final R esult Performing Organization Address City/[facility] Co de Phone Number [facility] [address] [place] [address] * (ABNORMAL) CBC (06/20/2025 1:52 AM EDT) WBC Count 6.95 3.70 - 10.30 10*3/uL LAB HEMATOLOGY METHOD 06/20/2025 2:07 AM EDT [facility] RBC Count 3.73(L) 4.60 - 6.10 10*6/uL LAB HEMATOLOGY METHOD 06/20/2025 2:07 AM EDT [facility] HGB 10.4(L) 13.7 - 17.5 g/dL LAB HEMATOLOGY METHOD 06/20/2025 2:07 AM EDT [facility] HCT 31.9(L) 40.0 - 51.0 % LAB HEMATOLOGY METHOD 06/20/2025 2:07 AM EDT [facility] Platelet Count 187 155 - 369 10*3/uL LAB HEMATOLOGY METHOD 06/20/2025 2:07 AM EDT [facility] MCV 86 79 - 98 fL LAB HEMATOLOGY METHOD 06/20/2025 2:07 AM EDT [facility] MCH 27.9 26.0 - 32.0 pg LAB HEMATOLOGY METHOD 06/20/2025 2:07 AM EDT [facility] MCHC 32.6 30.7 - 35.5 g/dL LAB HEMATOLOGY METHOD 06/20/2025 2:07 AM EDT [facility] RDW 14.8(H) 11.5 - 14.5 % LAB HEMATOLOGY METHOD 06/20/2025 2:07 AM EDT [facility] MPV 10.2 8.8 - 12.5 fL LAB HEMATOLOGY METHOD 06/20/2025 2:07 AM EDT [facility] nRBC 0.0 <=0.0 per 100 WBCs LAB HEMATOLOGY METHOD 06/20/2025 2:07 AM EDT [facility] Blood Venous blood specimen / Unknown Venipuncture / Unknown 06/20/2025 1:52 AM EDT 06/20/2025 1:59 AM EDT us Phillip Clark MD LAB BLOOD ORDERABLES Final R esult [facility] [address] [place] [address] * PERIPHERAL IV (SMARTFORM LINK) (06/20/2025 1:47 [...] ECG Atrial Rate 85 BPM MUSE ECG NH Interval 176 ms MUSE ECG QRSD Interval 110 ms MUSE ECG QT Interval 402 ms MUSE ECG QTC Interval 478 ms MUSE ECG P [place] 43 degrees MUSE ECG R [place] -30 degrees MUSE ECG T Wave [place] 36 degrees MUSE ECG Diagnosis Poor data quality, interpretation may be adversely affected MUSE ECG Diagnosis Sinus rhythm with premature supraventricular complexes and with occasional premature ventricular complexes MUSE ECG Diagnosis Left axis deviation MUSE ECG Diagnosis Poor R-wave progression MUSE ECG Diagnosis Abnormal ECG MUSE ECG Diagnosis Recommend repeat ECG MUSE ECG Diagnosis MUSE ECG Diagnosis Confirmed by Aman Coe ([id number]) on 06/19/2025 1:33:10 PM MUSE ECG 06/19/2025 12:4 9 PM EDT 06/19/2025 1:33 PM EDT Barbara MARIE ECG ORDERABLES Final Resul t MUSE ECG * (ABNORMAL) Basic metabolic panel (06/19/2025 2:38 AM EDT) Glucose, Plasma 102(H) 74 - 99 mg/dL 06/19/2025 4:10 AM EDT [facility] BUN, Plasma 25(H) 8 - 23 mg/dL 06/19/2025 4:10 AM EDT [facility] Creatinine, Plasma 1.02 0.70 - 1.20 mg/dL 06/19/2025 4:10 AM EDT [facility] BUN/Creatinine Ratio 25 06/19/2025 4:10 AM EDT [facility] Sodium, Plasma 134(L) 136 - 145 mmol/L 06/19/2025 4:10 AM EDT [facility] Potassium, Plasma 4.6 3.6 - 4.9 mmol/L 06/19/2025 4:10 AM EDT [facility] Comment:Hemolyzed - Potassiu m may be falsely elevated by approximately 0.4-0.7 mmol/L. Chloride, Plasma 102 97 - 107 mmol/L 06/19/2025 4:10 AM EDT [facility] CO2, Plasma 23 22 - 29 mmol/L 06/19/2025 4:10 AM EDT [facility] Anion Gap 9 6 - 16 mmol/L 06/19/2025 4:10 AM EDT [facility] Total Calcium, Plasma 8.4(L) 8.9 - 10.2 mg/dL 06/19/2025 4:10 AM EDT [facility] eGFRcr 79.6 mL/min/1.7 3m*2 06/19/2025 4:10 AM EDT [facility] Comment:Reported eGFRcr in m L/min/1.73m2 is based the CKD-EPI 2020 equation that does not use a race coefficient. Blood Venous blood specimen / Unknown Venipuncture / Unknown 06/19/2025 2:38 AM EDT 06/19/2025 2:54 AM EDT us Phillip Clark MD LAB BLOOD ORDERABLES Final R esult [facility] [address] [place] [address] * Phosphorus (06/19/2025 2:38 AM EDT) Pathologist [facility] Phosphorus, Plasma 3.6 2.5 - 4.5 mg/dL 06/19/2025 4:10 AM EDT [facility] Blood Venous blood specimen / Unknown Venipuncture / Unknown 06/19/2025 2:38 AM EDT 06/19/2025 2:54 AM EDT us Phillip Clark MD LAB BLOOD ORDERABLES Final R esult Performing Organization Address City/[facility]/ZIP Co de Phone Number [facility] [address] [place] [address] * (ABNORMAL) Protime-INR (06/19/2025 2:38 AM EDT) Prothrombin Time 26.3(H) 12.0 - 14.3 sec LAB COAGULATION METHOD 06/19/2025 3:09 AM EDT [facility] INR 2.4(H) 0.9 - 1.1 LAB COAGULATION METHOD 06/19/2025 3:09 AM EDT [facility] Blood Venous blood specimen / Unknown Venipuncture / Unknown 06/19/2025 2:38 AM EDT 06/19/2025 2:54 AM EDT Narrative [facility] - 06/19/2025 3:09 AM EDT OPTIMAL INR RANGES FOR PATIENT ON ORAL ANTICOAGULANT THERAPY Prevention of venous thromboembolism INR 2.0 to 3.0 In patients with heart disease: Atrial fibrillation INR 2.0 to 3.0 Valvular heart disease INR 2.0 to 3.0 Tissue heart valves INR 2.0 to 3.0 Mechanical prosthetic valves INR 2.5 to 3.5 Prevention of recurrent NH INR 2.5 to 3.5 Phillip Clark MD LAB BLOOD ORDERABLES Final R esult Performing Organization Address [facility] Co de Phone Number [facility] [address] [place] [address] * Magnesium (06/19/2025 2:38 AM EDT) Magnesium, Plasma 2.4 1.9 - 2.4 mg/dL 06/19/2025 4:10 AM EDT [facility] Blood Venous blood specimen / Unknown Venipuncture / Unknown 06/19/2025 2:38 AM EDT 06/19/2025 2:54 AM EDT Phillip Clark MD LAB BLOOD ORDERABLES Final R esult Performing Organization Address City/[facility]/ZIP Co de Phone Number [facility] [address] [place] [address] * (ABNORMAL) CBC (06/19/2025 2:38 AM EDT) WBC Count 6.94 3.70 - 10.30 10*3/uL LAB HEMATOLOGY METHOD 06/19/2025 3:17 AM EDT [facility] RBC Count 4.12(L) 4.60 - 6.10 10*6/uL LAB HEMATOLOGY METHOD 06/19/2025 3:17 AM EDT [facility] HGB 11.5(L) 13.7 - 17.5 g/dL LAB HEMATOLOGY METHOD 06/19/2025 3:17 AM EDT [facility] HCT 35.7(L) 40.0 - 51.0 % LAB HEMATOLOGY METHOD 06/19/2025 3:17 AM EDT [facility] Platelet Count 165 155 - 369 10*3/uL LAB HEMATOLOGY METHOD 06/19/2025 3:17 AM EDT [facility] MCV 87 79 - 98 fL LAB HEMATOLOGY METHOD 06/19/2025 3:17 AM EDT [facility] MCH 27.9 26.0 - 32.0 pg LAB HEMATOLOGY METHOD 06/19/2025 3:17 AM EDT [facility] MCHC 32.2 30.7 - 35.5 g/dL LAB HEMATOLOGY METHOD 06/19/2025 3:17 AM EDT [facility] RDW 14.8(H) 11.5 - 14.5 % LAB HEMATOLOGY METHOD 06/19/2025 3:17 AM EDT [facility] MPV 10.6 8.8 - 12.5 fL LAB HEMATOLOGY METHOD 06/19/2025 3:17 AM EDT [facility] nRBC 0.0 <=0.0 per 100 WBCs LAB HEMATOLOGY METHOD 06/19/2025 3:17 AM EDT [facility] Blood Venous blood specimen / Unknown Venipuncture / Unknown 06/19/2025 2:38 AM EDT 06/19/2025 2:54 AM EDT us Phillip Clark MD LAB BLOOD ORDERABLES Final R esult [facility] [address] [place] [address] * XR Chest 1 View (06/19/2025 1:50 [...] - 99 mg/dL 06/18/2025 2:17 AM EDT [facility] BUN, Plasma 18 8 - 23 mg/dL 06/18/2025 2:17 AM EDT [facility] Creatinine, Plasma 0.82 0.70 - 1.20 mg/dL 06/18/2025 2:17 AM EDT [facility] BUN/Creatinine Ratio 22 06/18/2025 2:17 AM EDT [facility] Sodium, Plasma 134(L) 136 - 145 mmol/L 06/18/2025 2:17 AM EDT [facility] Potassium, Plasma 3.7 3.6 - 4.9 mmol/L 06/18/2025 2:17 AM EDT [facility] Chloride, Plasma 100 97 - 107 mmol/L 06/18/2025 2:17 AM EDT [facility] CO2, Plasma 26 22 - 29 mmol/L 06/18/2025 2:17 AM EDT [facility] Anion Gap 8 6 - 16 mmol/L 06/18/2025 2:17 AM EDT [facility] Total Calcium, Plasma 8.1(L) 8.9 - 10.2 mg/dL 06/18/2025 2:17 AM EDT [facility] eGFRcr 95.1 mL/min/1.7 3m*2 06/18/2025 2:17 AM EDT [facility] Comment:Reported eGFRcr in m L/min/1.73m2 is based the CKD-EPI 2020 equation that does not use a race coefficient. Blood Blood sample taken from central line / Unknown Venipuncture / Unknown 06/18/2025 1:43 AM EDT 06/18/2025 1:48 AM EDT Phillip Clark MD LAB BLOOD ORDERABLES Final R esult Performing Organization Address City/[facility]/ZIP Co de Phone Number [facility] [address] [place] [address] * Phosphorus (06/18/2025 1:43 AM EDT) Phosphorus, Plasma 2.6 2.5 - 4.5 mg/dL 06/18/2025 2:17 AM EDT [facility] Blood Blood sample taken from central line / Unknown Venipuncture / Unknown 06/18/2025 1:43 AM EDT 06/18/2025 1:48 AM EDT Phillip Clark MD LAB BLOOD ORDERABLES Final R esult Performing Organization Address City/[facility]/ZIP Co de Phone Number [facility] [address] [place] [address] * (ABNORMAL) Protime-INR (06/18/2025 1:43 AM EDT) Prothrombin Time 25.2(H) 12.0 - 14.3 sec LAB COAGULATION METHOD 06/18/2025 2:07 AM EDT [facility] INR 2.3(H) 0.9 - 1.1 LAB COAGULATION METHOD 06/18/2025 2:07 AM EDT [facility] Blood Blood sample taken from central line / Unknown Venipuncture / Unknown 06/18/2025 1:43 AM EDT 06/18/2025 1:48 AM EDT Narrative [facility] - 06/18/2025 2:07 AM EDT OPTIMAL INR RANGES FOR PATIENT ON ORAL ANTICOAGULANT THERAPY Prevention of venous thromboembolism INR 2.0 to 3.0 In patients with heart disease: Atrial fibrillation INR 2.0 to 3.0 Valvular heart disease INR 2.0 to 3.0 Tissue heart valves INR 2.0 to 3.0 Mechanical prosthetic valves INR 2.5 to 3.5 Prevention of recurrent NH INR 2.5 to 3.5 us Phillip Clark MD LAB BLOOD ORDERABLES Final R esult Performing Organization Address City/[facility]/ZIP Co de Phone Number [facility] [address] [place] [address] * Magnesium (06/18/2025 1:43 AM EDT) [facility] Magnesium, Plasma 2.3 1.9 - 2.4 mg/dL 06/18/2025 2:17 AM EDT [facility] Blood Blood sample taken from central line / Unknown Venipuncture / Unknown 06/18/2025 1:43 AM EDT 06/18/2025 1:48 AM EDT us Phillip Clark MD LAB BLOOD ORDERABLES Final R esult Performing Organization Address City/[facility]/ZIP Co de Phone Number [facility] [address] [place] [address] * (ABNORMAL) CBC (06/18/2025 1:43 AM EDT) [facility] WBC Count 8.51 3.70 - 10.30 10*3/uL LAB HEMATOLOGY METHOD 06/18/2025 1:54 AM EDT [facility] RBC Count 3.67(L) 4.60 - 6.10 10*6/uL LAB HEMATOLOGY METHOD 06/18/2025 1:54 AM EDT [facility] HGB 10.6(L) 13.7 - 17.5 g/dL LAB HEMATOLOGY METHOD 06/18/2025 1:54 AM EDT [facility] HCT 31.2(L) 40.0 - 51.0 % LAB HEMATOLOGY METHOD 06/18/2025 1:54 AM EDT [facility] Platelet Count 121(L) 155 - 369 10*3/uL LAB HEMATOLOGY METHOD 06/18/2025 1:54 AM EDT [facility] MCV 85 79 - 98 fL LAB HEMATOLOGY METHOD 06/18/2025 1:54 AM EDT [facility] MCH 28.9 26.0 - 32.0 pg LAB HEMATOLOGY METHOD 06/18/2025 1:54 AM EDT [facility] MCHC 34.0 30.7 - 35.5 g/dL LAB HEMATOLOGY METHOD 06/18/2025 1:54 AM EDT [facility] RDW 14.7(H) 11.5 - 14.5 % LAB HEMATOLOGY METHOD 06/18/2025 1:54 AM EDT [facility] MPV 10.4 8.8 - 12.5 fL LAB HEMATOLOGY METHOD 06/18/2025 1:54 AM EDT [facility] nRBC 0.0 <=0.0 per 100 WBCs LAB HEMATOLOGY METHOD 06/18/2025 1:54 AM EDT [facility] Blood Blood sample taken from central line / Unknown Venipuncture / Unknown 06/18/2025 1:43 AM EDT 06/18/2025 1:48 AM EDT us Phillip Clark MD LAB BLOOD ORDERABLES Final R esult [facility] [address] [place] [address] * XR Chest 1 View (06/17/2025 3:14 [...] - 99 mg/dL 06/17/2025 12:54 AM EDT [facility] BUN, Plasma 15 8 - 23 mg/dL 06/17/2025 12:54 AM EDT [facility] Creatinine, Plasma 0.81 0.70 - 1.20 mg/dL 06/17/2025 12:54 AM EDT [facility] BUN/Creatinine Ratio 19 06/17/2025 12:54 AM EDT [facility] Sodium, Plasma 133(L) 136 - 145 mmol/L 06/17/2025 12:54 AM EDT [facility] Potassium, Plasma 3.9 3.6 - 4.9 mmol/L 06/17/2025 12:54 AM EDT [facility] Chloride, Plasma 98 97 - 107 mmol/L 06/17/2025 12:54 AM EDT [facility] CO2, Plasma 25 22 - 29 mmol/L 06/17/2025 12:54 AM EDT [facility] Anion Gap 10 6 - 16 mmol/L 06/17/2025 12:54 AM EDT [facility] Total Calcium, Plasma 8.1(L) 8.9 - 10.2 mg/dL 06/17/2025 12:54 AM EDT [facility] eGFRcr 95.4 mL/min/1.7 3m*2 06/17/2025 12:54 AM EDT [facility] Comment:Reported eGFRcr in m L/min/1.73m2 is based the CKD-EPI 2020 equation that does not use a race coefficient. Blood Blood sample taken from central line / Unknown Venipuncture / Unknown 06/17/2025 12:17 AM EDT 06/17/2025 12:24 AM EDT us Phillip Clark MD LAB BLOOD ORDERABLES Final R esult Performing Organization Address City/[facility] Co de Phone Number [facility] [address] [place] [address] * Phosphorus (06/17/2025 12:17 AM EDT) Phosphorus, Plasma 2.9 2.5 - 4.5 mg/dL 06/17/2025 12:54 AM EDT [facility] Blood Blood sample taken from central line / Unknown Venipuncture / Unknown 06/17/2025 12:17 AM EDT 06/17/2025 12:24 AM EDT us Phillip Clark MD LAB BLOOD ORDERABLES Final R esult Performing Organization Address City/[facility]/ZIP Co de Phone Number [facility] [address] [place] [address] * (ABNORMAL) Protime-INR (06/17/2025 12:17 AM EDT) Prothrombin Time 18.7(H) 12.0 - 14.3 sec LAB COAGULATION METHOD 06/17/2025 1:16 AM EDT [facility] INR 1.5(H) 0.9 - 1.1 LAB COAGULATION METHOD 06/17/2025 1:16 AM EDT [facility] Blood Blood sample taken from central line / Unknown Venipuncture / Unknown 06/17/2025 12:17 AM EDT 06/17/2025 12:24 AM EDT Narrative [facility] - 06/17/2025 1:16 AM EDT OPTIMAL INR RANGES FOR PATIENT ON ORAL ANTICOAGULANT THERAPY Prevention of venous thromboembolism INR 2.0 to 3.0 In patients with heart disease: Atrial fibrillation INR 2.0 to 3.0 Valvular heart disease INR 2.0 to 3.0 Tissue heart valves INR 2.0 to 3.0 Mechanical prosthetic valves INR 2.5 to 3.5 Prevention of recurrent NH INR 2.5 to 3.5 us Phillip Clark MD LAB BLOOD ORDERABLES Final R esult Performing Organization Address City/[facility]/ZIP Co de Phone Number [facility] [address] [place] [address] * Magnesium (06/17/2025 12:17 AM EDT) Magnesium, Plasma 2.3 1.9 - 2.4 mg/dL 06/17/2025 12:54 AM EDT [facility] Blood Blood sample taken from central line / Unknown Venipuncture / Unknown 06/17/2025 12:17 AM EDT 06/17/2025 12:24 AM EDT Phillip Clark MD LAB BLOOD ORDERABLES Final R esult [facility] [address] [place] [address] * (ABNORMAL) CBC (06/17/2025 12:17 AM EDT) WBC Count 10.83(H) 3.70 - 10.30 10*3/uL LAB HEMATOLOGY METHOD 06/17/2025 12:32 AM EDT [facility] RBC Count 4.08(L) 4.60 - 6.10 10*6/uL LAB HEMATOLOGY METHOD 06/17/2025 12:32 AM EDT [facility] HGB 11.3(L) 13.7 - 17.5 g/dL LAB HEMATOLOGY METHOD 06/17/2025 12:32 AM EDT [facility] HCT 35.0(L) 40.0 - 51.0 % LAB HEMATOLOGY METHOD 06/17/2025 12:32 AM EDT [facility] Platelet Count 116(L) 155 - 369 10*3/uL LAB HEMATOLOGY METHOD 06/17/2025 12:32 AM EDT [facility] MCV 86 79 - 98 fL LAB HEMATOLOGY METHOD 06/17/2025 12:32 AM EDT [facility] MCH 27.7 26.0 - 32.0 pg LAB HEMATOLOGY METHOD 06/17/2025 12:32 AM EDT [facility] MCHC 32.3 30.7 - 35.5 g/dL LAB HEMATOLOGY METHOD 06/17/2025 12:32 AM EDT [facility] RDW 15.1(H) 11.5 - 14.5 % LAB HEMATOLOGY METHOD 06/17/2025 12:32 AM EDT [facility] MPV 10.3 8.8 - 12.5 fL LAB HEMATOLOGY METHOD 06/17/2025 12:32 AM EDT [facility] nRBC 0.0 <=0.0 per 100 WBCs LAB HEMATOLOGY METHOD 06/17/2025 12:32 AM EDT [facility] Blood Blood sample taken from central line / Unknown Venipuncture / Unknown 06/17/2025 12:17 AM EDT 06/17/2025 12:24 AM EDT us Phillip Clark MD LAB BLOOD ORDERABLES Final R esult [facility] [address] [place] [address] * Magnesium (06/16/2025 5:35 PM EDT) Magnesium, Plasma 2.2 1.9 - 2.4 mg/dL 06/16/2025 7:41 PM EDT [facility] Blood Venous blood specimen / Unknown Venipuncture / Unknown 06/16/2025 5:35 PM EDT 06/16/2025 7:12 PM EDT us Phillip Clark MD LAB BLOOD ORDERABLES Final R esult [facility] [address] [place] [address] * (ABNORMAL) Renal function panel (06/16/2025 5:35 PM EDT) Glucose, Plasma 89 74 - 99 mg/dL 06/16/2025 7:41 PM EDT [facility] BUN, Plasma 15 8 - 23 mg/dL 06/16/2025 7:41 PM EDT [facility] Creatinine, Plasma 0.79 0.70 - 1.20 mg/dL 06/16/2025 7:41 PM EDT [facility] BUN/Creatinine Ratio 19 06/16/2025 7:41 PM EDT [facility] Sodium, Plasma 134(L) 136 - 145 mmol/L 06/16/2025 7:41 PM EDT [facility] Potassium, Plasma 3.8 3.6 - 4.9 mmol/L 06/16/2025 7:41 PM EDT [facility] Chloride, Plasma 98 97 - 107 mmol/L 06/16/2025 7:41 PM EDT [facility] CO2, Plasma 25 22 - 29 mmol/L 06/16/2025 7:41 PM EDT [facility] Anion Gap 11 6 - 16 mmol/L 06/16/2025 7:41 PM EDT [facility] Total Calcium, Plasma 8.4(L) 8.9 - 10.2 mg/dL 06/16/2025 7:41 PM EDT [facility] Phosphorus, Plasma 2.2(L) 2.5 - 4.5 mg/dL 06/16/2025 7:41 PM EDT [facility] Albumin, Plasma 3.4(L) 3.5 - 5.2 g/dL 06/16/2025 7:41 PM EDT [facility] eGFRcr 96.2 mL/min/1.7 3m*2 06/16/2025 7:41 PM EDT [facility] Comment:Reported eGFRcr in m L/min/1.73m2 is based the CKD-EPI 2020 equation that does not use a race coefficient. Blood Venous blood specimen / Unknown Venipuncture / Unknown 06/16/2025 5:35 PM EDT 06/16/2025 7:12 PM EDT us Phillip Clark MD LAB BLOOD ORDERABLES Final R esult [facility] [address] [place] [address] * NH CRITICAL CARE, E/M 30-74 MINUTES (06/16/2025 9:58 [...] - 99 mg/dL 06/16/2025 8:45 AM EDT [facility] Comment:Accuracy of a glucos e result [...] Comment 06/16/2025 8:45 AM EDT [facility] Building [employer]cutter ID Fariba Blanton 025 8:45 AM EDT [facility] Device ID [id number] 06/16/2025 8:45 AM EDT [facility] Specimen Type POC Arterial 06/16/2025 8:45 AM EDT [facility] Blood Arterial blood specimen / Unknown 06/16/2025 8:40 AM EDT 06/16/2025 8:45 AM EDT Phillip Clark MD LAB POINT OF CARE TE ST DOCKED DEVICE UNSOLICITED RESULTS Final Result Performing Organization Address City/State/[facility] Phone Number [facility] [address] [place] [address] * (ABNORMAL) Basic metabolic panel (06/16/2025 5:58 AM EDT) Glucose, Plasma 124(H) 74 - 99 mg/dL 06/16/2025 6:35 AM EDT [facility] BUN, Plasma 16 8 - 23 mg/dL 06/16/2025 6:35 AM EDT [facility] Creatinine, Plasma 0.83 0.70 - 1.20 mg/dL 06/16/2025 6:35 AM EDT [facility] BUN/Creatinine Ratio 19 06/16/2025 6:35 AM EDT [facility] Sodium, Plasma 132(L) 136 - 145 mmol/L 06/16/2025 6:35 AM EDT [facility] Potassium, Plasma 3.8 3.6 - 4.9 mmol/L 06/16/2025 6:35 AM EDT [facility] Chloride, Plasma 100 97 - 107 mmol/L 06/16/2025 6:35 AM EDT [facility] CO2, Plasma 25 22 - 29 mmol/L 06/16/2025 6:35 AM EDT [facility] Anion Gap 7 6 - 16 mmol/L 06/16/2025 6:35 AM EDT [facility] Total Calcium, Plasma 8.4(L) 8.9 - 10.2 mg/dL 06/16/2025 6:35 AM EDT [facility] eGFRcr 94.7 mL/min/1.7 3m*2 06/16/2025 6:35 AM EDT [facility] Comment:Reported eGFRcr in m L/min/1.73m2 is based the CKD-EPI 2020 equation that does not use a race coefficient. Blood Arterial blood specimen / Unknown Venipuncture / Unknown 06/16/2025 5:58 AM EDT 06/16/2025 6:05 AM EDT us Phillip Clark MD LAB BLOOD ORDERABLES Final R esult [facility] [address] [place] [address] * XR Chest 1 View (06/16/2025 5:14 AM EDT) Anatomical Region Laterality Modality Chest Digital Radiogra phy Impressions 06/16/2025 8:15 AM EDT Interval removal of the Gridley-Shira catheter, the right IJ sheath remains in [...] post median sternotomy. Interval removal of the Gridley-Shira catheter, right IJ sheath remains in place with tip in the mid to distal SVC. No pneumothorax or pleural effusions. Ongoing interstitial edema. Procedure Note Mona Smith MD - 06/16/2025 CLINICAL INDICATION: Post-Op Cardiac Surgery TECHNIQUE: XR CHEST 1 VIEW COMPARISON: Chest radiograph 06/15/2025 FINDINGS: Enlarged cardiac silhouette stable status post median sternotomy. Intervalremoval of the Gridley-Shira catheter, right IJ sheath remains in place withtip in the mid to distal SVC. No pneumothorax or pleural effusions. Ongoing interstitial edema. IMPRESSION: Interval removal of the Gridley-Shira catheter, the right IJ sheath remainsin place [...] * Phosphorus (06/16/2025 12:36 AM EDT) Pathologist [facility] Phosphorus, Plasma 3.0 2.5 - 4.5 mg/dL 06/16/2025 1:12 AM EDT [facility] Blood Arterial blood specimen / Unknown Venipuncture / Unknown 06/16/2025 12:36 AM EDT 06/16/2025 12:48 AM EDT Phillip Clark MD LAB BLOOD ORDERABLES Final R esult [facility] [address] [place] [address] * (ABNORMAL) Protime-INR (06/16/2025 12:36 AM EDT) Prothrombin Time 18.0(H) 12.0 - 14.3 sec LAB COAGULATION METHOD 06/16/2025 1:06 AM EDT [facility] INR 1.5(H) 0.9 - 1.1 LAB COAGULATION METHOD 06/16/2025 1:06 AM EDT [facility] Blood Arterial blood specimen / Unknown Venipuncture / Unknown 06/16/2025 12:36 AM EDT 06/16/2025 12:48 AM EDT Narrative [facility] - 06/16/2025 1:06 AM EDT OPTIMAL INR RANGES FOR PATIENT ON ORAL ANTICOAGULANT THERAPY Prevention of venous thromboembolism INR 2.0 to 3.0 In patients with heart disease: Atrial fibrillation INR 2.0 to 3.0 Valvular heart disease INR 2.0 to 3.0 Tissue heart valves INR 2.0 to 3.0 Mechanical prosthetic valves INR 2.5 to 3.5 Prevention of recurrent NH INR 2.5 to 3.5 Phillip Clark MD LAB BLOOD ORDERABLES Final R esult Performing Organization Address [facility] Co de Phone Number [facility] [address] [place] [address] * (ABNORMAL) Magnesium (06/16/2025 12:36 AM EDT) Magnesium, Plasma 2.5(H) 1.9 - 2.4 mg/dL 06/16/2025 1:12 AM EDT [facility] Blood Arterial blood specimen / Unknown Venipuncture / Unknown 06/16/2025 12:36 AM EDT 06/16/2025 12:48 AM EDT Phillip Clark MD LAB BLOOD ORDERABLES Final R esult Performing Organization Address [facility] Co de Phone Number [facility] [address] [place] [address] * (ABNORMAL) CBC (06/16/2025 12:36 AM EDT) WBC Count 13.67(H) 3.70 - 10.30 10*3/uL LAB HEMATOLOGY METHOD 06/16/2025 1:01 AM EDT [facility] RBC Count 4.36(L) 4.60 - 6.10 10*6/uL LAB HEMATOLOGY METHOD 06/16/2025 1:01 AM EDT [facility] HGB 12.3(L) 13.7 - 17.5 g/dL LAB HEMATOLOGY METHOD 06/16/2025 1:01 AM EDT [facility] HCT 37.1(L) 40.0 - 51.0 % LAB HEMATOLOGY METHOD 06/16/2025 1:01 AM EDT [facility] Platelet Count 106(L) 155 - 369 10*3/uL LAB HEMATOLOGY METHOD 06/16/2025 1:01 AM EDT [facility] MCV 85 79 - 98 fL LAB HEMATOLOGY METHOD 06/16/2025 1:01 AM EDT [facility] MCH 28.2 26.0 - 32.0 pg LAB HEMATOLOGY METHOD 06/16/2025 1:01 AM EDT [facility] MCHC 33.2 30.7 - 35.5 g/dL LAB HEMATOLOGY METHOD 06/16/2025 1:01 AM EDT [facility] RDW 15.4(H) 11.5 - 14.5 % LAB HEMATOLOGY METHOD 06/16/2025 1:01 AM EDT [facility] MPV 10.8 8.8 - 12.5 fL LAB HEMATOLOGY METHOD 06/16/2025 1:01 AM EDT [facility] nRBC 0.0 <=0.0 per 100 WBCs LAB HEMATOLOGY METHOD 06/16/2025 1:01 AM EDT [facility] Blood Arterial blood specimen / Unknown Venipuncture / Unknown 06/16/2025 12:36 AM EDT 06/16/2025 12:48 AM EDT us Phillip Clark MD LAB BLOOD ORDERABLES Final R esult [facility] [address] [place] [address] * (ABNORMAL) Blood gas, arterial (06/16/2025 12:36 AM EDT) pH, Arterial 7.43(H) 7.31 - 7.42 LAB HEMATOLOGY METHOD 06/16/2025 12:58 AM EDT [facility] pCO2, Arterial 41 32 - 45 mmHg LAB HEMATOLOGY METHOD 06/16/2025 12:58 AM EDT [facility] pO2, Arterial 65(L) >80 mmHg LAB HEMATOLOGY METHOD 06/16/2025 12:58 AM EDT [facility] SO2, Measured, Arterial 94 94 - 98 % LAB HEMATOLOGY METHOD 06/16/2025 12:58 AM EDT [facility] Base Excess, Arterial 2.5 -2.0 - 3.0 mmol/L LAB HEMATOLOGY METHOD 06/16/2025 12:58 AM EDT [facility] Bicarbonate, Calculated, Arterial 27(H) 22 - 26 mmol/L LAB HEMATOLOGY METHOD 06/16/2025 12:58 AM EDT [facility] Hematocrit, Whole Blood 37.9(L) 40.0 - 51.0 % LAB HEMATOLOGY METHOD 06/16/2025 12:58 AM EDT [facility] Sodium, Whole Blood 133(L) 136 - 145 mmol/L LAB HEMATOLOGY METHOD 06/16/2025 12:58 AM EDT [facility] Potassium, Whole Blood 3.4(L) 3.6 - 4.9 mmol/L LAB HEMATOLOGY METHOD 06/16/2025 12:58 AM EDT [facility] Chloride, Whole Blood 100 97 - 107 mmol/L LAB HEMATOLOGY METHOD 06/16/2025 12:58 AM EDT [facility] Glucose, Whole Blood 124(H) 74 - 99 mg/dL LAB HEMATOLOGY METHOD 06/16/2025 12:58 AM EDT [facility] Ionized Calcium, Whole Blood 4.3(L) 4.6 - 5.1 mg/dL LAB HEMATOLOGY METHOD 06/16/2025 12:58 AM EDT [facility] Lactate, Arterial, Whole Blood 1.0 0.5 - 1.6 mmol/L LAB HEMATOLOGY METHOD 06/16/2025 12:58 AM EDT [facility] Blood Arterial blood specimen / Unknown Arterial Puncture / Unknown 06/16/2025 12:36 AM EDT 06/16/2025 12:55 AM EDT us Phillip Clark MD LAB BLOOD ORDERABLES Final R esult Performing Organization Address City/State/[facility] Co de Phone Number [facility] [address] [place] [address] * (ABNORMAL) POCT glucose meter (06/15/2025 8:00 PM EDT) POCT Glucose 120(H) 74 - 99 mg/dL 06/15/2025 8:01 PM EDT [facility] Comment:Accuracy of a glucos e [...] 06/15/2025 8:01 PM EDT [facility] Building [employer] ID Svetlana Reilly 8:01 PM EDT HEALTHCARE [facility] Device ID [id number] 06/15/2025 8:01 PM EDT [facility] Specimen Type POC Capillary 06/15/2025 8:01 PM EDT [facility] Blood Capillary blood specimen / Unknown 06/15/2025 8:00 PM EDT 06/15/2025 8:01 PM EDT us Phillip Clark MD LAB POINT OF CARE TE ST DOCKED DEVICE UNSOLICITED RESULTS Final Result Performing Organization Address City/[facility] de Phone Number [facility]ALTH[facility]ARE [facility] [address] [place] [address] * (ABNORMAL) POCT glucose meter (06/15/2025 5:56 PM EDT) [facility] Signature POCT Glucose 121(H) 74 - [...] Comment 06/15/2025 5:57 PM EDT [facility]ALTH[facility] Building [employer]cut[facility] ID Bony Thomas 025 5:57 PM EDT HEALTHCARE LAB Device ID [id number] 06/15/2025 5:57 PM EDT [facility] Specimen Type POC Arterial 06/15/2025 5:57 PM EDT [facility] Blood Arterial blood specimen / Unknown 06/15/2025 5:56 PM EDT 06/15/2025 5:57 PM EDT us Phillip Clark MD LAB POINT OF CARE TE ST DOCKED DEVICE UNSOLICITED RESULTS Final Result Performing Organization Address City/[facility] Co de Phone Number [facility] [address] [place] [address] * Magnesium (06/15/2025 4:11 PM EDT) Pathologist [facility] Magnesium, Plasma 2.1 1.9 - 2.4 mg/dL 06/15/2025 6:21 PM EDT [facility] Blood Venous blood specimen / Unknown Venipuncture / Unknown 06/15/2025 4:11 PM EDT 06/15/2025 4:39 PM EDT Phillip Clark MD LAB BLOOD ORDERABLES Final R esult [facility] [address] [place] [address] * Phosphorus (06/15/2025 4:11 PM EDT) [facility] Phosphorus, Plasma 2.9 2.5 - 4.5 mg/dL 06/15/2025 5:12 PM EDT [facility] Blood Venous blood specimen / Unknown Venipuncture / Unknown 06/15/2025 4:11 PM EDT 06/15/2025 4:39 PM EDT Phillip Clark MD LAB BLOOD ORDERABLES Final R esult [facility] [address] [place] [address] * (ABNORMAL) Basic metabolic panel (06/15/2025 4:11 PM EDT) [facility] Glucose, Plasma 123(H) 74 - 99 mg/dL 06/15/2025 5:12 PM EDT [facility] BUN, Plasma 19 8 - 23 mg/dL 06/15/2025 5:12 PM EDT [facility] Creatinine, Plasma 0.88 0.70 - 1.20 mg/dL 06/15/2025 5:12 PM EDT [facility] BUN/Creatinine Ratio 22 06/15/2025 5:12 PM EDT [facility] Sodium, Plasma 133(L) 136 - 145 mmol/L 06/15/2025 5:12 PM EDT [facility] Potassium, Plasma 3.9 3.6 - 4.9 mmol/L 06/15/2025 5:12 PM EDT [facility] Chloride, Plasma 102 97 - 107 mmol/L 06/15/2025 5:12 PM EDT [facility] CO2, Plasma 23 22 - 29 mmol/L 06/15/2025 5:12 PM EDT [facility] Anion Gap 8 6 - 16 mmol/L 06/15/2025 5:12 PM EDT [facility] Total Calcium, Plasma 8.6(L) 8.9 - 10.2 mg/dL 06/15/2025 5:12 PM EDT [facility] eGFRcr 93.1 mL/min/1.7 3m*2 06/15/2025 5:12 PM EDT [facility] Comment:Reported eGFRcr in m L/min/1.73m2 is based the CKD-EPI 2020 equation that does not use a race coefficient. Blood Venous blood specimen / Unknown Venipuncture / Unknown 06/15/2025 4:11 PM EDT 06/15/2025 4:39 PM EDT us Phillip Clark MD LAB BLOOD ORDERABLES Final R esult [facility] [address] [place] [address] * (ABNORMAL) POCT glucose meter (06/15/2025 12:14 [...] 06/15/2025 12:16 PM EDT [facility] Building Stonecutter ID Bony Thomas 025 12:16 PM EDT [facility] Device ID [id number] 06/15/2025 12:16 PM EDT [facility] Specimen Type POC Arterial 06/15/2025 12:16 PM EDT [facility] Blood Arterial blood specimen / Unknown 06/15/2025 12:14 PM EDT 06/15/2025 12:16 PM EDT us Phillip Clark MD LAB POINT OF CARE TE ST DOCKED DEVICE UNSOLICITED RESULTS Final Result Performing Organization Address City/State/[facility] de Phone Number [facility] [address] [place] [id number] * [facility], E/M 30-74 MINUTES (06/15/2025 9:19 [...] Comment 06/15/2025 8:25 AM EDT [facility] Building Stonecutter ID Bony Thomas 025 8:25 AM EDT [facility] Device ID [id number] 06/15/2025 8:25 AM EDT [facility] Specimen Type POC Arterial 06/15/2025 8:25 AM EDT [facility] Blood Arterial blood specimen / Unknown 06/15/2025 8:24 AM EDT 06/15/2025 8:25 AM EDT us Phillip Clark MD LAB POINT OF CARE TE ST DOCKED DEVICE UNSOLICITED RESULTS Final Result [facility] [address] [place] [address] * (ABNORMAL) CBC and Differential (06/15/2025 8:18 AM EDT) WBC Count 12.56(H) 3.70 - 10.30 10*3/uL LAB HEMATOLOGY METHOD 06/15/2025 8:47 AM EDT [facility] RBC Count 4.60 4.60 - 6.10 10*6/uL LAB HEMATOLOGY METHOD 06/15/2025 8:47 AM EDT [facility] HGB 12.8(L) 13.7 - 17.5 g/dL LAB HEMATOLOGY METHOD 06/15/2025 8:47 AM EDT [facility] HCT 39.4(L) 40.0 - 51.0 % LAB HEMATOLOGY METHOD 06/15/2025 8:47 AM EDT [facility] Platelet Count 120(L) 155 - 369 10*3/uL LAB HEMATOLOGY METHOD 06/15/2025 8:47 AM EDT [facility] MCV 86 79 - 98 fL LAB HEMATOLOGY METHOD 06/15/2025 8:47 AM EDT [facility] MCH 27.8 26.0 - 32.0 pg LAB HEMATOLOGY METHOD 06/15/2025 8:47 AM EDT [facility] MCHC 32.5 30.7 - 35.5 g/dL LAB HEMATOLOGY METHOD 06/15/2025 8:47 AM EDT [facility] RDW 15.5(H) 11.5 - 14.5 % LAB HEMATOLOGY METHOD 06/15/2025 8:47 AM EDT [facility] MPV 10.6 8.8 - 12.5 fL LAB HEMATOLOGY METHOD 06/15/2025 8:47 AM EDT [facility] nRBC 0.0 <=0.0 per 100 WBCs LAB HEMATOLOGY METHOD 06/15/2025 8:47 AM EDT [facility] Differential Type Automated LAB HEMATOLOGY METHOD 06/15/2025 8:47 AM EDT [facility] Neutrophils % 84 % LAB HEMATOLOGY METHOD 06/15/2025 8:47 AM EDT [facility] Lymphocytes % 5 % LAB HEMATOLOGY METHOD 06/15/2025 8:47 AM EDT [facility] Monocytes % 10 % LAB HEMATOLOGY METHOD 06/15/2025 8:47 AM EDT [facility] Eosinophils % 0 % LAB HEMATOLOGY METHOD 06/15/2025 8:47 AM EDT [facility] Basophils % 0 % LAB HEMATOLOGY METHOD 06/15/2025 8:47 AM EDT [facility] Immature Granulocytes % 1 % LAB HEMATOLOGY METHOD 06/15/2025 8:47 AM EDT [facility] Neutrophils Absolute 10.59(H) 1.60 - 6.10 10*3/uL LAB HEMATOLOGY METHOD 06/15/2025 8:47 AM EDT [facility] Lymphocytes Absolute 0.60(L) 1.20 - 3.90 10*3/uL LAB HEMATOLOGY METHOD 06/15/2025 8:47 AM EDT [facility] Monocytes Absolute 1.29(H) 0.30 - 0.90 10*3/uL LAB HEMATOLOGY METHOD 06/15/2025 8:47 AM EDT [facility] Eosinophils Absolute 0.00 0.00 - 0.50 10*3/uL LAB HEMATOLOGY METHOD 06/15/2025 8:47 AM EDT [facility] Basophils Absolute 0.02 0.00 - 0.10 10*3/uL LAB HEMATOLOGY METHOD 06/15/2025 8:47 AM EDT [facility] Immature Granulocytes Absolute 0.06 0.00 - 0.06 10*3/uL LAB HEMATOLOGY METHOD 06/15/2025 8:47 AM EDT [facility] Blood Venous blood specimen / Unknown Venipuncture / Unknown 06/15/2025 8:18 AM EDT 06/15/2025 8:34 AM EDT Narrative [facility] - 06/15/2025 8:47 AM EDT Therapeutic decision making should be based on absolute values, rather than percentages. Phillip Clark MD LAB BLOOD ORDERABLES Final R esult Performing Organization Address City/[facility]/ZIP Co de Phone Number [facility] [address] [place] [address] * (ABNORMAL) Protime-INR (06/15/2025 6:40 AM EDT) Prothrombin Time 16.5(H) 12.0 - 14.3 sec LAB COAGULATION METHOD 06/15/2025 7:53 AM EDT [facility] INR 1.3(H) 0.9 - 1.1 LAB COAGULATION METHOD 06/15/2025 7:53 AM EDT [facility] Blood Arterial blood specimen / Unknown Venipuncture / Unknown 06/15/2025 6:40 AM EDT 06/15/2025 6:47 AM EDT Narrative [facility] - 06/15/2025 7:53 AM EDT OPTIMAL INR RANGES FOR PATIENT ON ORAL ANTICOAGULANT THERAPY Prevention of venous thromboembolism INR 2.0 to 3.0 In patients with heart disease: Atrial fibrillation INR 2.0 to 3.0 Valvular heart disease INR 2.0 to 3.0 Tissue heart valves INR 2.0 to 3.0 Mechanical prosthetic valves INR 2.5 to 3.5 Prevention of recurrent NH INR 2.5 to 3.5 us Phillip Clark MD LAB BLOOD ORDERABLES Final R esult Performing Organization Address City/[facility]/ZIP Co de Phone Number [facility] [address] [place] [address] * Ionized calcium, whole blood (06/15/2025 6:40 AM EDT) Ionized Calcium, Whole Blood 4.6 4.6 - 5.1 mg/dL LAB HEMATOLOGY METHOD 06/15/2025 6:50 AM EDT [facility] Blood Arterial blood specimen / Unknown Venipuncture / Unknown 06/15/2025 6:40 AM EDT 06/15/2025 6:48 AM EDT us Phillip Clark MD LAB BLOOD ORDERABLES Final R esult [facility] [address] [place] [address] * ECG Adult - POD 1 (06/15/2025 5:20 AM EDT) EKG DIAGNOSIS CLASS Abnormal MUSE ECG Ventricular Rate 71 BPM MUSE ECG Atrial Rate 71 BPM MUSE ECG NH Interval 182 ms MUSE ECG QRSD Interval 108 ms MUSE ECG QT Interval 418 ms MUSE ECG QTC Interval 454 ms MUSE ECG P [place] 51 degrees MUSE ECG R [place] -48 degrees MUSE ECG T Wave [place] -12 degrees MUSE ECG Diagnosis Normal sinus rhythm MUSE ECG Diagnosis Left anterior fascicular block MUSE ECG Diagnosis Abnormal ECG MUSE ECG Diagnosis MUSE ECG Diagnosis Confirmed by Bimal Brambila ([id number]) on 06/15/2025 11:38:57 AM MUSE ECG 06/15/2025 5:20 AM EDT 06/15/2025 11:38 AM EDT Phillip Clark MD ECG ORDERABLES Final Result MUSE ECG * (ABNORMAL) Blood gas panel, arterial (06/15/2025 3:58 AM EDT) pH, Arterial 7.39 7.31 - 7.42 LAB HEMATOLOGY METHOD 06/15/2025 4:06 AM EDT [facility] pCO2, Arterial 39 32 - 45 mmHg LAB HEMATOLOGY METHOD 06/15/2025 4:06 AM EDT [facility] pO2, Arterial 79(L) >80 mmHg LAB HEMATOLOGY METHOD 06/15/2025 4:06 AM EDT [facility] SO2, Measured, Arterial 97 94 - 98 % LAB HEMATOLOGY METHOD 06/15/2025 4:06 AM EDT [facility] Base Excess, Arterial -1.2 -2.0 - 3.0 mmol/L LAB HEMATOLOGY METHOD 06/15/2025 4:06 AM EDT [facility] Bicarbonate, Calculated, Arterial 24 22 - 26 mmol/L LAB HEMATOLOGY METHOD 06/15/2025 4:06 AM EDT [facility] Hematocrit, Whole Blood 39.7(L) 40.0 - 51.0 % LAB HEMATOLOGY METHOD 06/15/2025 4:06 AM EDT [facility] Sodium, Whole Blood 134(L) 136 - 145 mmol/L LAB HEMATOLOGY METHOD 06/15/2025 4:06 AM EDT [facility] Potassium, Whole Blood 4.4 3.6 - 4.9 mmol/L LAB HEMATOLOGY METHOD 06/15/2025 4:06 AM EDT [facility] Chloride, Whole Blood 108(H) 97 - 107 mmol/L LAB HEMATOLOGY METHOD 06/15/2025 4:06 AM EDT [facility] Glucose, Whole Blood 132(H) 74 - 99 mg/dL LAB HEMATOLOGY METHOD 06/15/2025 4:06 AM EDT [facility] Ionized Calcium, Whole Blood 4.5(L) 4.6 - 5.1 mg/dL LAB HEMATOLOGY METHOD 06/15/2025 4:06 AM EDT [facility] Lactate, Arterial, Whole Blood 0.9 0.5 - 1.6 mmol/L LAB HEMATOLOGY METHOD 06/15/2025 4:06 AM EDT [facility] Blood Arterial blood specimen / Unknown Arterial Puncture / Unknown 06/15/2025 3:58 AM EDT 06/15/2025 4:06 AM EDT us Phillip Clark MD LAB BLOOD ORDERABLES Final R esult [facility] [address] [place] [address] * XR Chest 1 View (06/15/2025 2:53 [...] of NG tube. Right internal jugular approach Gridley-Shira catheter and mediastinal drain in unchanged position. [...] IMG XR PROCEDURES Final Resu lt * NH CRITICAL CARE, ADDL 30 MIN, [facility] CRITICAL CARE, ADDL 30 MIN (06/15/2025 12:21 [...] LAB HEMATOLOGY METHOD 06/15/2025 8:17 AM EDT [facility] Neutrophils % 85 % LAB HEMATOLOGY METHOD 06/15/2025 8:17 AM EDT [facility] Lymphocytes % 4 % LAB HEMATOLOGY METHOD 06/15/2025 8:17 AM EDT [facility] Monocytes % 10 % LAB HEMATOLOGY METHOD 06/15/2025 8:17 AM EDT [facility] Eosinophils % 0 % LAB HEMATOLOGY METHOD 06/15/2025 8:17 AM EDT [facility] Basophils % 0 % LAB HEMATOLOGY METHOD 06/15/2025 8:17 AM EDT [facility] Immature Granulocytes % 1 % LAB HEMATOLOGY METHOD 06/15/2025 8:17 AM EDT [facility] Immature Granulocytes Absolute 0.05 0.00 - 0.06 10*3/uL LAB HEMATOLOGY METHOD 06/15/2025 8:17 AM EDT [facility] Neutrophils Absolute 9.28(H) 1.60 - 6.10 10*3/uL LAB HEMATOLOGY METHOD 06/15/2025 8:17 AM EDT [facility] Lymphocytes Absolute 0.45(L) 1.20 - 3.90 10*3/uL LAB HEMATOLOGY METHOD 06/15/2025 8:17 AM EDT [facility] Monocytes Absolute 1.14(H) 0.30 - 0.90 10*3/uL LAB HEMATOLOGY METHOD 06/15/2025 8:17 AM EDT [facility] Basophils Absolute 0.02 0.00 - 0.10 10*3/uL LAB HEMATOLOGY METHOD 06/15/2025 8:17 AM EDT [facility] Eosinophils Absolute 0.00 0.00 - 0.50 10*3/uL LAB HEMATOLOGY METHOD 06/15/2025 8:17 AM EDT [facility] Blood Venous blood specimen / Unknown Venipuncture / Unknown 06/15/2025 12:20 AM EDT 06/15/2025 12:26 AM EDT Phillip Clark MD LAB BLOOD ORDERABLES Final R esult [facility] [address] [place] [address] * Phosphorus (06/15/2025 12:20 AM EDT) Phosphorus, Plasma 2.6 2.5 - 4.5 mg/dL 06/15/2025 8:33 AM EDT [facility] Blood Venous blood specimen / Unknown Venipuncture / Unknown 06/15/2025 12:20 AM EDT 06/15/2025 12:26 AM EDT Phillip Clark MD LAB BLOOD ORDERABLES Final R esult Performing Organization Address City/[facility]/ZIP Co de Phone Number [facility] [address] [place] [address] * (ABNORMAL) Magnesium (06/15/2025 12:20 AM EDT) Magnesium, Plasma 2.5(H) 1.9 - 2.4 mg/dL 06/15/2025 7:37 AM EDT [facility] Blood Venous blood specimen / Unknown Venipuncture / Unknown 06/15/2025 12:20 AM EDT 06/15/2025 12:26 AM EDT Phillip Clark MD LAB BLOOD ORDERABLES Final R esult Performing Organization Address City/[facility]/ZIP Co de Phone Number [facility] [address] [place] [address] * (ABNORMAL) Basic metabolic panel (06/15/2025 12:20 AM EDT) Glucose, Plasma 140(H) 74 - 99 mg/dL 06/15/2025 7:37 AM EDT [facility] BUN, Plasma 17 8 - 23 mg/dL 06/15/2025 7:37 AM EDT [facility] Creatinine, Plasma 0.84 0.70 - 1.20 mg/dL 06/15/2025 7:37 AM EDT [facility] BUN/Creatinine Ratio 20 06/15/2025 7:37 AM EDT [facility] Sodium, Plasma 138 136 - 145 mmol/L 06/15/2025 7:37 AM EDT [facility] Potassium, Plasma 4.6 3.6 - 4.9 mmol/L 06/15/2025 7:37 AM EDT [facility] Chloride, Plasma 107 97 - 107 mmol/L 06/15/2025 7:37 AM EDT [facility] CO2, Plasma 18(L) 22 - 29 mmol/L 06/15/2025 7:37 AM EDT [facility] Anion Gap 13 6 - 16 mmol/L 06/15/2025 7:37 AM EDT [facility] Total Calcium, Plasma 8.0(L) 8.9 - 10.2 mg/dL 06/15/2025 7:37 AM EDT [facility] eGFRcr 94.4 mL/min/1.7 3m*2 06/15/2025 7:37 AM EDT [facility] Comment:Reported eGFRcr in m L/min/1.73m2 is based the CKD-EPI 2020 equation that does not use a race coefficient. Blood Venous blood specimen / Unknown Venipuncture / Unknown 06/15/2025 12:20 AM EDT 06/15/2025 12:26 AM EDT us Phillip Clark MD LAB BLOOD ORDERABLES Final R esult [facility] [address] [place] [address] * (ABNORMAL) CBC W/O Differential (06/15/2025 12:20 AM EDT) WBC Count 10.94(H) 3.70 - 10.30 10*3/uL LAB HEMATOLOGY METHOD 06/15/2025 8:32 AM EDT [facility] RBC Count 4.94 4.60 - 6.10 10*6/uL LAB HEMATOLOGY METHOD 06/15/2025 8:32 AM EDT [facility] HGB 13.6(L) 13.7 - 17.5 g/dL LAB HEMATOLOGY METHOD 06/15/2025 8:32 AM EDT [facility] HCT 41.0 40.0 - 51.0 % LAB HEMATOLOGY METHOD 06/15/2025 8:32 AM EDT [facility] Platelet Count 142(L) 155 - 369 10*3/uL LAB HEMATOLOGY METHOD 06/15/2025 8:32 AM EDT [facility] MCV 87 79 - 98 fL LAB HEMATOLOGY METHOD 06/15/2025 8:32 AM EDT [facility] MCH 27.5 26.0 - 32.0 pg LAB HEMATOLOGY METHOD 06/15/2025 8:32 AM EDT [facility] MCHC 31.8 30.7 - 35.5 g/dL LAB HEMATOLOGY METHOD 06/15/2025 8:32 AM EDT [facility] RDW 15.6(H) 11.5 - 14.5 % LAB HEMATOLOGY METHOD 06/15/2025 8:32 AM EDT [facility] MPV 11.1 8.8 - 12.5 fL LAB HEMATOLOGY METHOD 06/15/2025 8:32 AM EDT [facility] nRBC 0.0 <=0.0 per 100 WBCs LAB HEMATOLOGY METHOD 06/15/2025 8:32 AM EDT [facility] Blood Venous blood specimen / Unknown Venipuncture / Unknown 06/15/2025 12:20 AM EDT 06/15/2025 12:26 AM EDT us Phillip Clark MD LAB BLOOD ORDERABLES Final R esult [facility] [address] [place] [address] * Potassium, Plasma (06/15/2025 12:20 AM EDT) Pathologist [facility] Potassium, Plasma 4.5 3.6 - 4.9 mmol/L 06/15/2025 12:51 AM EDT [facility] Blood Venous blood specimen / Unknown Venipuncture / Unknown 06/15/2025 12:20 AM EDT 06/15/2025 12:26 AM EDT Phillip Clark MD LAB BLOOD ORDERABLES Final R esult [facility] [address] [place] [address] * Hematocrit (06/15/2025 12:20 AM EDT) [facility] HCT 41.0 40.0 - 51.0 % LAB HEMATOLOGY METHOD 06/15/2025 12:36 AM EDT [facility] Blood Venous blood specimen / Unknown Venipuncture / Unknown 06/15/2025 12:20 AM EDT 06/15/2025 12:26 AM EDT Phillip Clark MD LAB BLOOD ORDERABLES Final R esult Performing Organization Address City/[facility]/ZIP Co de Phone Number [facility] [address] [place] [address] * (ABNORMAL) Hemoglobin (06/15/2025 12:20 AM EDT) [facility] HGB 13.6(L) 13.7 - 17.5 g/dL LAB HEMATOLOGY METHOD 06/15/2025 12:36 AM EDT [facility] Blood Venous blood specimen / Unknown Venipuncture / Unknown 06/15/2025 12:20 AM EDT 06/15/2025 12:26 AM EDT us Phillip Clark MD LAB BLOOD ORDERABLES Final R esult Performing Organization Address City/[facility]/ZIP Co de Phone Number [facility] [address] [place] [address] * (ABNORMAL) Blood gas, arterial (06/15/2025 12:20 AM EDT) pH, Arterial 7.37 7.31 - 7.42 LAB HEMATOLOGY METHOD 06/15/2025 12:37 AM EDT [facility] pCO2, Arterial 40 32 - 45 mmHg LAB HEMATOLOGY METHOD 06/15/2025 12:37 AM EDT [facility] pO2, Arterial 65(L) >80 mmHg LAB HEMATOLOGY METHOD 06/15/2025 12:37 AM EDT [facility] SO2, Measured, Arterial 94 94 - 98 % LAB HEMATOLOGY METHOD 06/15/2025 12:37 AM EDT [facility] Base Excess, Arterial -1.8 -2.0 - 3.0 mmol/L LAB HEMATOLOGY METHOD 06/15/2025 12:37 AM EDT [facility] Bicarbonate, Calculated, Arterial 23 22 - 26 mmol/L LAB HEMATOLOGY METHOD 06/15/2025 12:37 AM EDT [facility] Hematocrit, Whole Blood 41.1 40.0 - 51.0 % LAB HEMATOLOGY METHOD 06/15/2025 12:37 AM EDT [facility] Sodium, Whole Blood 137 136 - 145 mmol/L LAB HEMATOLOGY METHOD 06/15/2025 12:37 AM EDT [facility] Potassium, Whole Blood 4.2 3.6 - 4.9 mmol/L LAB HEMATOLOGY METHOD 06/15/2025 12:37 AM EDT [facility] Chloride, Whole Blood 110(H) 97 - 107 mmol/L LAB HEMATOLOGY METHOD 06/15/2025 12:37 AM EDT [facility] Glucose, Whole Blood 140(H) 74 - 99 mg/dL LAB HEMATOLOGY METHOD 06/15/2025 12:37 AM EDT [facility] Ionized Calcium, Whole Blood 4.5(L) 4.6 - 5.1 mg/dL LAB HEMATOLOGY METHOD 06/15/2025 12:37 AM EDT [facility] Lactate, Arterial, Whole Blood 1.8(H) 0.5 - 1.6 mmol/L LAB HEMATOLOGY METHOD 06/15/2025 12:37 AM EDT [facility] Blood Arterial blood specimen / Unknown Arterial Puncture / Unknown 06/15/2025 12:20 AM EDT 06/15/2025 12:34 AM EDT us Phillip Clark MD LAB BLOOD ORDERABLES Final R esult [facility] [address] [place] [address] * (ABNORMAL) Blood gas, arterial (06/14/2025 8:04 PM EDT) pH, Arterial 7.35 7.31 - 7.42 LAB HEMATOLOGY METHOD 06/14/2025 8:19 PM EDT [facility] pCO2, Arterial 39 32 - 45 mmHg LAB HEMATOLOGY METHOD 06/14/2025 8:19 PM EDT [facility] pO2, Arterial 88 >80 mmHg LAB HEMATOLOGY METHOD 06/14/2025 8:19 PM EDT [facility] SO2, Measured, Arterial 98 94 - 98 % LAB HEMATOLOGY METHOD 06/14/2025 8:19 PM EDT [facility] Base Excess, Arterial -3.7(L) -2.0 - 3.0 mmol/L LAB HEMATOLOGY METHOD 06/14/2025 8:19 PM EDT [facility] Bicarbonate, Calculated, Arterial 22 22 - 26 mmol/L LAB HEMATOLOGY METHOD 06/14/2025 8:19 PM EDT [facility] Hematocrit, Whole Blood 44.7 40.0 - 51.0 % LAB HEMATOLOGY METHOD 06/14/2025 8:19 PM EDT [facility] Sodium, Whole Blood 138 136 - 145 mmol/L LAB HEMATOLOGY METHOD 06/14/2025 8:19 PM EDT [facility] Potassium, Whole Blood 4.5 3.6 - 4.9 mmol/L LAB HEMATOLOGY METHOD 06/14/2025 8:19 PM EDT [facility] Chloride, Whole Blood 109(H) 97 - 107 mmol/L LAB HEMATOLOGY METHOD 06/14/2025 8:19 PM EDT [facility] Glucose, Whole Blood 185(H) 74 - 99 mg/dL LAB HEMATOLOGY METHOD 06/14/2025 8:19 PM EDT [facility] Ionized Calcium, Whole Blood 4.5(L) 4.6 - 5.1 mg/dL LAB HEMATOLOGY METHOD 06/14/2025 8:19 PM EDT [facility] Lactate, Arterial, Whole Blood 3.0(H) 0.5 - 1.6 mmol/L LAB HEMATOLOGY METHOD 06/14/2025 8:19 PM EDT [facility] Blood Arterial blood specimen / Unknown Arterial Puncture / Unknown 06/14/2025 8:04 PM EDT 06/14/2025 8:14 PM EDT Phillip Clark MD LAB BLOOD ORDERABLES Final R esult [facility] [address] [place] [address] * Potassium (06/14/2025 8:03 PM EDT) Potassium, Plasma 4.9 3.6 - 4.9 mmol/L 06/14/2025 8:33 PM EDT [facility] Blood Arterial blood specimen / Unknown Venipuncture / Unknown 06/14/2025 8:03 PM EDT 06/14/2025 8:11 PM EDT Phillip Clark MD LAB BLOOD ORDERABLES Final R esult Performing Organization Address [facility]/ZIP Co de Phone Number [facility] [address] [place] [address] * (ABNORMAL) Magnesium (06/14/2025 8:03 PM EDT) Magnesium, Plasma 2.7(H) 1.9 - 2.4 mg/dL 06/14/2025 8:40 PM EDT [facility] Blood Arterial blood specimen / Unknown Venipuncture / Unknown 06/14/2025 8:03 PM EDT 06/14/2025 8:11 PM EDT Phillip Clark MD LAB BLOOD ORDERABLES Final R esult Performing Organization Address City/[facility]/ZIP Co de Phone Number [facility] [address] [place] [address] * (ABNORMAL) CBC (06/14/2025 8:03 PM EDT) WBC Count 13.98(H) 3.70 - 10.30 10*3/uL LAB HEMATOLOGY METHOD 06/14/2025 8:20 PM EDT [facility] RBC Count 5.14 4.60 - 6.10 10*6/uL LAB HEMATOLOGY METHOD 06/14/2025 8:20 PM EDT [facility] HGB 14.5 13.7 - 17.5 g/dL LAB HEMATOLOGY METHOD 06/14/2025 8:20 PM EDT [facility] HCT 43.9 40.0 - 51.0 % LAB HEMATOLOGY METHOD 06/14/2025 8:20 PM EDT [facility] Platelet Count 158 155 - 369 10*3/uL LAB HEMATOLOGY METHOD 06/14/2025 8:20 PM EDT [facility] MCV 85 79 - 98 fL LAB HEMATOLOGY METHOD 06/14/2025 8:20 PM EDT [facility] MCH 28.2 26.0 - 32.0 pg LAB HEMATOLOGY METHOD 06/14/2025 8:20 PM EDT [facility] MCHC 33.0 30.7 - 35.5 g/dL LAB HEMATOLOGY METHOD 06/14/2025 8:20 PM EDT [facility] RDW 14.9(H) 11.5 - 14.5 % LAB HEMATOLOGY METHOD 06/14/2025 8:20 PM EDT [facility] MPV 10.8 8.8 - 12.5 fL LAB HEMATOLOGY METHOD 06/14/2025 8:20 PM EDT [facility] nRBC 0.0 <=0.0 per 100 WBCs LAB HEMATOLOGY METHOD 06/14/2025 8:20 PM EDT [facility] Blood Arterial blood specimen / Unknown Venipuncture / Unknown 06/14/2025 8:03 PM EDT 06/14/2025 8:11 PM EDT us Phillip Clark MD LAB BLOOD ORDERABLES Final R esult [facility] [address] [place] [address] * (ABNORMAL) Basic metabolic panel (06/14/2025 8:03 PM EDT) Glucose, Plasma 194(H) 74 - 99 mg/dL 06/14/2025 8:40 PM EDT [facility] BUN, Plasma 16 8 - 23 mg/dL 06/14/2025 8:40 PM EDT [facility] Creatinine, Plasma 0.85 0.70 - 1.20 mg/dL 06/14/2025 8:40 PM EDT [facility] BUN/Creatinine Ratio 19 06/14/2025 8:40 PM EDT [facility] Sodium, Plasma 139 136 - 145 mmol/L 06/14/2025 8:40 PM EDT [facility] Potassium, Plasma 5.0(H) 3.6 - 4.9 mmol/L 06/14/2025 8:40 PM EDT [facility] Chloride, Plasma 109(H) 97 - 107 mmol/L 06/14/2025 8:40 PM EDT [facility] CO2, Plasma 20(L) 22 - 29 mmol/L 06/14/2025 8:40 PM EDT [facility] Anion Gap 10 6 - 16 mmol/L 06/14/2025 8:40 PM EDT [facility] Total Calcium, Plasma 8.2(L) 8.9 - 10.2 mg/dL 06/14/2025 8:40 PM EDT [facility] eGFRcr 94.1 mL/min/1.7 3m*2 06/14/2025 8:40 PM EDT [facility] Comment:Reported eGFRcr in m L/min/1.73m2 is based the CKD-EPI 2020 equation that does not use a race coefficient. Blood Arterial blood specimen / Unknown Venipuncture / Unknown 06/14/2025 8:03 PM EDT 06/14/2025 8:11 PM EDT us Phillip Clark MD LAB BLOOD ORDERABLES Final R esult [facility] [address] [place] [address] * (ABNORMAL) Blood gas panel, arterial (06/14/2025 6:47 PM EDT) pH, Arterial 7.30(L) 7.31 - 7.42 LAB HEMATOLOGY METHOD 06/14/2025 6:57 PM EDT [facility] pCO2, Arterial 41 32 - 45 mmHg LAB HEMATOLOGY METHOD 06/14/2025 6:57 PM EDT [facility] pO2, Arterial 70(L) >80 mmHg LAB HEMATOLOGY METHOD 06/14/2025 6:57 PM EDT [facility] SO2, Measured, Arterial 94 94 - 98 % LAB HEMATOLOGY METHOD 06/14/2025 6:57 PM EDT [facility] Base Excess, Arterial -5.6(L) -2.0 - 3.0 mmol/L LAB HEMATOLOGY METHOD 06/14/2025 6:57 PM EDT [facility] Bicarbonate, Calculated, Arterial 21(L) 22 - 26 mmol/L LAB HEMATOLOGY METHOD 06/14/2025 6:57 PM EDT [facility] Hematocrit, Whole Blood 45.5 40.0 - 51.0 % LAB HEMATOLOGY METHOD 06/14/2025 6:57 PM EDT [facility] Sodium, Whole Blood 138 136 - 145 mmol/L LAB HEMATOLOGY METHOD 06/14/2025 6:57 PM EDT [facility] Potassium, Whole Blood 4.4 3.6 - 4.9 mmol/L LAB HEMATOLOGY METHOD 06/14/2025 6:57 PM EDT [facility] Chloride, Whole Blood 109(H) 97 - 107 mmol/L LAB HEMATOLOGY METHOD 06/14/2025 6:57 PM EDT [facility] Glucose, Whole Blood 209(H) 74 - 99 mg/dL LAB HEMATOLOGY METHOD 06/14/2025 6:57 PM EDT [facility] Ionized Calcium, Whole Blood 4.6 4.6 - 5.1 mg/dL LAB HEMATOLOGY METHOD 06/14/2025 6:57 PM EDT [facility] Lactate, Arterial, Whole Blood 3.9(H) 0.5 - 1.6 mmol/L LAB HEMATOLOGY METHOD 06/14/2025 6:57 PM EDT [facility] Blood Arterial blood specimen / Unknown Arterial Puncture / Unknown 06/14/2025 6:47 PM EDT 06/14/2025 6:56 PM EDT us Phillip Clark MD LAB BLOOD ORDERABLES Final R esult [facility] [address] [place] [address] * [facility] CRITICAL CARE, E/M 30-74 MINUTES (06/14/2025 5:35 [...] LAB HEMATOLOGY METHOD 06/14/2025 4:12 PM EDT [facility] pCO2, Arterial 43 32 - 45 mmHg LAB HEMATOLOGY METHOD 06/14/2025 4:12 PM EDT [facility] pO2, Arterial 126 >80 mmHg LAB HEMATOLOGY METHOD 06/14/2025 4:12 PM EDT [facility] SO2, Measured, Arterial 99(H) 94 - 98 % LAB HEMATOLOGY METHOD 06/14/2025 4:12 PM EDT [facility] Base Excess, Arterial -5.8(L) -2.0 - 3.0 mmol/L LAB HEMATOLOGY METHOD 06/14/2025 4:12 PM EDT [facility] Bicarbonate, Calculated, Arterial 21(L) 22 - 26 mmol/L LAB HEMATOLOGY METHOD 06/14/2025 4:12 PM EDT [facility] Hematocrit, Whole Blood 43.9 40.0 - 51.0 % LAB HEMATOLOGY METHOD 06/14/2025 4:12 PM EDT [facility] Sodium, Whole Blood 139 136 - 145 mmol/L LAB HEMATOLOGY METHOD 06/14/2025 4:12 PM EDT [facility] Potassium, Whole Blood 3.8 3.6 - 4.9 mmol/L LAB HEMATOLOGY METHOD 06/14/2025 4:12 PM EDT [facility] Chloride, Whole Blood 109(H) 97 - 107 mmol/L LAB HEMATOLOGY METHOD 06/14/2025 4:12 PM EDT [facility] Glucose, Whole Blood 179(H) 74 - 99 mg/dL LAB HEMATOLOGY METHOD 06/14/2025 4:12 PM EDT [facility] Ionized Calcium, Whole Blood 4.6 4.6 - 5.1 mg/dL LAB HEMATOLOGY METHOD 06/14/2025 4:12 PM EDT [facility] Lactate, Arterial, Whole Blood 4.3(H) 0.5 - 1.6 mmol/L LAB HEMATOLOGY METHOD 06/14/2025 4:12 PM EDT [facility] Blood Arterial blood specimen / Unknown Arterial Puncture / Unknown 06/14/2025 3:57 PM EDT 06/14/2025 4:11 PM EDT us Phillip Clark MD LAB BLOOD ORDERABLES Final R esult [facility] [address] [place] [address] * (ABNORMAL) Blood gas panel with oximetry, mixed venous (06/14/2025 3:00 PM EDT) pH, Mixed Venous 7.28(L) 7.32 - 7.43 LAB HEMATOLOGY METHOD 06/14/2025 3:24 PM EDT [facility] pCO2, Mixed Venous 47 40 - 55 mmHg LAB HEMATOLOGY METHOD 06/14/2025 3:24 PM EDT [facility] pO2, Mixed Venous 54(H) 25 - 40 mmHg LAB HEMATOLOGY METHOD 06/14/2025 3:24 PM EDT [facility] SO2, Measured, Mixed Venous 84(H) 65 - 80 % LAB HEMATOLOGY METHOD 06/14/2025 3:24 PM EDT [facility] Bicarbonate, Calculated, Mixed Venous 22 22 - 26 mmol/L LAB HEMATOLOGY METHOD 06/14/2025 3:24 PM EDT [facility] Base Excess, Mixed Venous -4.7(L) -2.0 - 3.0 mmol/L LAB HEMATOLOGY METHOD 06/14/2025 3:24 PM EDT [facility] Hematocrit, Whole Blood 43.0 40.0 - 51.0 % LAB HEMATOLOGY METHOD 06/14/2025 3:24 PM EDT [facility] Sodium, Whole Blood 139 136 - 145 mmol/L LAB HEMATOLOGY METHOD 06/14/2025 3:24 PM EDT [facility] Potassium, Whole Blood 3.7 3.6 - 4.9 mmol/L LAB HEMATOLOGY METHOD 06/14/2025 3:24 PM EDT [facility] Chloride, Whole Blood 110(H) 97 - 107 mmol/L LAB HEMATOLOGY METHOD 06/14/2025 3:24 PM EDT [facility] Ionized Calcium, Whole Blood 4.6 4.6 - 5.1 mg/dL LAB HEMATOLOGY METHOD 06/14/2025 3:24 PM EDT [facility] Glucose, Whole Blood 149(H) 74 - 99 mg/dL LAB HEMATOLOGY METHOD 06/14/2025 3:24 PM EDT [facility] Oxyhemoglobin, Mixed Venous, Whole Blood 81.9(H) 40.0 - 70.0 % LAB HEMATOLOGY METHOD 06/14/2025 3:24 PM EDT [facility] Hemoglobin Reduced, Mixed Venous, Whole Blood 16.1 % LAB HEMATOLOGY METHOD 06/14/2025 3:24 PM EDT [facility] Total Hemoglobin, Mixed Venous, Whole Blood 14.0 13.7 - 17.5 g/dL LAB HEMATOLOGY METHOD 06/14/2025 3:24 PM EDT [facility] Blood Mixed venous blood specimen / Unknown Venipuncture / Unknown 06/14/2025 3:00 PM EDT 06/14/2025 3:23 PM EDT us Phillip Clark MD LAB BLOOD ORDERABLES Final R esult [facility] [address] [place] [address] * XR Abdomen 1 View (06/14/2025 2:57 [...] Detected Not Detected 06/15/2025 12:46 PM EDT [facility] Swab (Axilla and Groin) Non-blood Collection / Unknown 06/14/2025 2:37 PM EDT 06/14/2025 3:10 PM EDT Narrative [facility] - 06/15/2025 12:46 PM EDT This PCR assay was developed and its performance characteristics determined by [facility] as appropriate for clinical purposes. This assay has not been cleared or approved by the FDA, but is performed in a CLIA regulated laboratory that is qualified to perform high-complexity testing. us Phillip Clark MD LAB MICROBIOLOGY - GENERAL O RDERABLES Final Result [facility] [address] [place] [address] * Multi Drug Resistance Test (06/14/2025 2:37 PM EDT) Culture No growth at day 1 06/15/2025 4:03 PM EDT [facility] Swab (Nares and Smita Rectal) Non-blood Collection / Unknown 06/14/2025 2:37 PM EDT 06/14/2025 3:10 PM EDT Narrative [facility] - 06/15/2025 4:03 PM EDT This test was developed and its performance characteristics determined by the [facility]. Although the media is FDA-approved, it is not FDA-approved for all specimen types submitted. The FDA has determined that such clearance or approval is not necessary. This test is used for surveillance purposes. It should not be regarded as investigational or for research. The [facility] is certified under the Clinical Laboratory Improvement Amendments of 1988 (CLIA-88) as qualified to perform high complexity clinical laboratory testing. Phillip Clark MD LAB MICROBIOLOGY - GENERAL O RDERABLES Final Result [facility] [address] [place] [address] * (ABNORMAL) Blood gas, arterial (06/14/2025 2:37 PM EDT) pH, Arterial 7.31 7.31 - 7.42 LAB HEMATOLOGY METHOD 06/14/2025 2:58 PM EDT [facility] pCO2, Arterial 42 32 - 45 mmHg LAB HEMATOLOGY METHOD 06/14/2025 2:58 PM EDT [facility] pO2, Arterial 154 >80 mmHg LAB HEMATOLOGY METHOD 06/14/2025 2:58 PM EDT [facility] SO2, Measured, Arterial 100(H) 94 - 98 % LAB HEMATOLOGY METHOD 06/14/2025 2:58 PM EDT [facility] Base Excess, Arterial -5.1(L) -2.0 - 3.0 mmol/L LAB HEMATOLOGY METHOD 06/14/2025 2:58 PM EDT [facility] Bicarbonate, Calculated, Arterial 21(L) 22 - 26 mmol/L LAB HEMATOLOGY METHOD 06/14/2025 2:58 PM EDT [facility] Hematocrit, Whole Blood 43.5 40.0 - 51.0 % LAB HEMATOLOGY METHOD 06/14/2025 2:58 PM EDT [facility] Sodium, Whole Blood 139 136 - 145 mmol/L LAB HEMATOLOGY METHOD 06/14/2025 2:58 PM EDT [facility] Potassium, Whole Blood 3.6 3.6 - 4.9 mmol/L LAB HEMATOLOGY METHOD 06/14/2025 2:58 PM EDT [facility] Chloride, Whole Blood 110(H) 97 - 107 mmol/L LAB HEMATOLOGY METHOD 06/14/2025 2:58 PM EDT [facility] Glucose, Whole Blood 131(H) 74 - 99 mg/dL LAB HEMATOLOGY METHOD 06/14/2025 2:58 PM EDT [facility] Ionized Calcium, Whole Blood 4.7 4.6 - 5.1 mg/dL LAB HEMATOLOGY METHOD 06/14/2025 2:58 PM EDT [facility] Lactate, Arterial, Whole Blood 5.0(H) 0.5 - 1.6 mmol/L LAB HEMATOLOGY METHOD 06/14/2025 2:58 PM EDT [facility] Blood Arterial blood specimen / Unknown Arterial Puncture / Unknown 06/14/2025 2:37 PM EDT 06/14/2025 2:57 PM EDT us Phillip Clark MD LAB BLOOD ORDERABLES Final R esult [facility] [address] [place] [address] * ECG Adult - Upon Admissoin to CVICU (06/14/2025 2:36 PM EDT) EKG DIAGNOSIS CLASS Abnormal MUSE ECG Ventricular Rate 61 BPM MUSE ECG Atrial Rate 61 BPM MUSE ECG NH Interval 176 ms MUSE ECG QRSD Interval 154 ms MUSE ECG QT Interval 520 ms MUSE ECG QTC Interval 523 ms MUSE ECG P [place] 58 degrees MUSE ECG R [place] 113 degrees MUSE ECG T Wave [place] -67 degrees MUSE ECG Diagnosis Sinus rhythm [...] - 4.9 mmol/L 06/14/2025 4:13 PM EDT [facility] Comment:Hemolyzed, result ma y be falsely increased. Blood Venous blood specimen / Unknown Venipuncture / Unknown 06/14/2025 2:36 PM EDT 06/14/2025 3:20 PM EDT Phillip Clark MD LAB BLOOD ORDERABLES Final R esult Performing Organization Address City/[facility]/ZIP Co de Phone Number [facility] [address] [place] [address] * Hematocrit (06/14/2025 2:36 PM EDT) HCT 42.6 40.0 - 51.0 % LAB HEMATOLOGY METHOD 06/14/2025 4:38 PM EDT [facility] Blood Venous blood specimen / Unknown Venipuncture / Unknown 06/14/2025 2:36 PM EDT 06/14/2025 4:17 PM EDT us Phillip Clark MD LAB BLOOD ORDERABLES Final R esult Performing Organization Address [facility] Co de Phone Number [facility] [address] [place] [address] * Hemoglobin (06/14/2025 2:36 PM EDT) HGB 13.9 13.7 - 17.5 g/dL LAB HEMATOLOGY METHOD 06/14/2025 4:38 PM EDT [facility] Blood Venous blood specimen / Unknown Venipuncture / Unknown 06/14/2025 2:36 PM EDT 06/14/2025 4:17 PM EDT Phillip Clark MD LAB BLOOD ORDERABLES Final R esult Performing Organization Address City/[facility] Co de Phone Number [facility] [address] [place] [address] * APTT (06/14/2025 2:36 PM EDT) aPTT 29 25 - 35 sec LAB COAGULATION METHOD 06/14/2025 4:11 PM EDT [facility] Blood Venous blood specimen / Unknown Venipuncture / Unknown 06/14/2025 2:36 PM EDT 06/14/2025 3:18 PM EDT Phillip Clark MD LAB BLOOD ORDERABLES Final R esult Performing Organization Address City/[facility]/ZIP Co de Phone Number [facility] [address] [place] [address] * (ABNORMAL) Protime-INR (06/14/2025 2:36 PM EDT) Prothrombin Time 16.6(H) 12.0 - 14.3 sec LAB COAGULATION METHOD 06/14/2025 4:11 PM EDT [facility] INR 1.3(H) 0.9 - 1.1 LAB COAGULATION METHOD 06/14/2025 4:11 PM EDT [facility] Blood Venous blood specimen / Unknown Venipuncture / Unknown 06/14/2025 2:36 PM EDT 06/14/2025 3:18 PM EDT Narrative [facility] - 06/14/2025 4:11 PM EDT OPTIMAL INR RANGES FOR PATIENT ON ORAL ANTICOAGULANT THERAPY Prevention of venous thromboembolism INR 2.0 to 3.0 In patients with heart disease: Atrial fibrillation INR 2.0 to 3.0 Valvular heart disease INR 2.0 to 3.0 Tissue heart valves INR 2.0 to 3.0 Mechanical prosthetic valves INR 2.5 to 3.5 Prevention of recurrent NH INR 2.5 to 3.5 Phillip Clark MD LAB BLOOD ORDERABLES Final R esult [facility] [address] [place] [address] * (ABNORMAL) Phosphorus (06/14/2025 2:36 PM EDT) Phosphorus, Plasma 2.3(L) 2.5 - 4.5 mg/dL 06/14/2025 4:13 PM EDT [facility] Blood Venous blood specimen / Unknown Venipuncture / Unknown 06/14/2025 2:36 PM EDT 06/14/2025 3:20 PM EDT Phillip Clark MD LAB BLOOD ORDERABLES Final R esult Performing Organization Address [facility] Co de Phone Number [facility] [address] [place] [address] * (ABNORMAL) Magnesium (06/14/2025 2:36 PM EDT) Magnesium, Plasma 3.2(H) 1.9 - 2.4 mg/dL 06/14/2025 6:55 PM EDT [facility] Blood Venous blood specimen / Unknown Venipuncture / Unknown 06/14/2025 2:36 PM EDT 06/14/2025 3:20 PM EDT Phillip Clark MD LAB BLOOD ORDERABLES Final R esult Performing Organization Address [facility] Phone Number [facility] [address] [place] [address] * (ABNORMAL) Basic metabolic panel (06/14/2025 2:36 PM EDT) Glucose, Plasma 134(H) 74 - 99 mg/dL 06/14/2025 4:13 PM EDT [facility] BUN, Plasma 14 8 - 23 mg/dL 06/14/2025 4:13 PM EDT [facility] Creatinine, Plasma 0.83 0.70 - 1.20 mg/dL 06/14/2025 4:13 PM EDT [facility] BUN/Creatinine Ratio 17 06/14/2025 4:13 PM EDT [facility] Sodium, Plasma 140 136 - 145 mmol/L 06/14/2025 4:13 PM EDT [facility] Potassium, Plasma 3.8 3.6 - 4.9 mmol/L 06/14/2025 4:13 PM EDT [facility] Comment:Hemolyzed, result ma y be falsely increased. Chloride, Plasma 108(H) 97 - 107 mmol/L 06/14/2025 4:13 PM EDT [facility] CO2, Plasma 19(L) 22 - 29 mmol/L 06/14/2025 4:13 PM EDT [facility] Anion Gap 13 6 - 16 mmol/L 06/14/2025 4:13 PM EDT [facility] Total Calcium, Plasma 8.3(L) 8.9 - 10.2 mg/dL 06/14/2025 4:13 PM EDT [facility] eGFRcr 94.7 mL/min/1.7 3m*2 06/14/2025 4:13 PM EDT [facility] Comment:Reported eGFRcr in m L/min/1.73m2 is based the CKD-EPI 2020 equation that does not use a race coefficient. Blood Venous blood specimen / Unknown Venipuncture / Unknown 06/14/2025 2:36 PM EDT 06/14/2025 3:20 PM EDT us Phillip Clark MD LAB BLOOD ORDERABLES Final R esult [facility] [address] [place] [address] * (ABNORMAL) CBC (06/14/2025 2:36 PM EDT) WBC Count 15.83(H) 3.70 - 10.30 10*3/uL LAB HEMATOLOGY METHOD 06/14/2025 4:38 PM EDT [facility] RBC Count 4.98 4.60 - 6.10 10*6/uL LAB HEMATOLOGY METHOD 06/14/2025 4:38 PM EDT [facility] HGB 13.9 13.7 - 17.5 g/dL LAB HEMATOLOGY METHOD 06/14/2025 4:38 PM EDT [facility] HCT 42.6 40.0 - 51.0 % LAB HEMATOLOGY METHOD 06/14/2025 4:38 PM EDT [facility] Platelet Count 160 155 - 369 10*3/uL LAB HEMATOLOGY METHOD 06/14/2025 4:38 PM EDT [facility] MCV 86 79 - 98 fL LAB HEMATOLOGY METHOD 06/14/2025 4:38 PM EDT [facility] MCH 27.9 26.0 - 32.0 pg LAB HEMATOLOGY METHOD 06/14/2025 4:38 PM EDT [facility] MCHC 32.6 30.7 - 35.5 g/dL LAB HEMATOLOGY METHOD 06/14/2025 4:38 PM EDT [facility] RDW 15.2(H) 11.5 - 14.5 % LAB HEMATOLOGY METHOD 06/14/2025 4:38 PM EDT [facility] MPV 10.3 8.8 - 12.5 fL LAB HEMATOLOGY METHOD 06/14/2025 4:38 PM EDT [facility] nRBC 0.0 <=0.0 per 100 WBCs LAB HEMATOLOGY METHOD 06/14/2025 4:38 PM EDT [facility] Blood Venous blood specimen / Unknown Venipuncture / Unknown 06/14/2025 2:36 PM EDT 06/14/2025 4:17 PM EDT us Phillip Clark MD LAB BLOOD ORDERABLES Final R esult [facility] [address] [place] [address] * (ABNORMAL) POCT arterial blood gas gem (06/14/2025 2:00 PM EDT) pH, Arterial 7.35 7.31 - 7.42 06/14/2025 2:02 PM EDT [facility] pCO2, Arterial 38 32 - 45 mm Hg 06/14/2025 2:02 PM EDT [facility] pO2, Arterial 376 >80 mm Hg 06/14/2025 2:02 PM EDT [facility] SO2, Arterial 100(H) 94 - 98 % 06/14/2025 2:02 PM EDT [facility] Base Excess, Arterial -4.2(L) -2 - 3 mmol/L 06/14/2025 2:02 PM EDT [facility] HCO3, Arterial 21.0(L) 22 - 26 mmol/L 06/14/2025 2:02 PM EDT [facility] Total Hemoglobin, Arterial, Whole Blood 14.5 13.7 - 17.5 g/dL 06/14/2025 2:02 PM EDT [facility] Hematocrit, Arterial 44.0 40 - 51.0 % 06/14/2025 2:02 PM EDT [facility] Sodium, Arterial 136 136 - 145 mmol/L 06/14/2025 2:02 PM EDT [facility] Potassium, Arterial 3.4(L) 3.6 - 4.9 mmol/L 06/14/2025 2:02 PM EDT [facility] Chloride, Whole Blood 105 97 - 107 mmol/L 06/14/2025 2:02 PM EDT [facility] Glucose, Arterial 138(H) 74 - 99 mg/dL 06/14/2025 2:02 PM EDT [facility] Ionized Calcium, Arterial 4.9 4.6 - 5.1 mg/dL 06/14/2025 2:02 PM EDT [facility] Lactate, Arterial 4.2(H) 0.5 - 1.6 mmol/L 06/14/2025 2:02 PM EDT [facility] Body Temperature 37.0 Celsius 06/14/2025 2:02 PM EDT [facility] pH, Temp Corrected, Arterial 7.35 7.31 - 7.42 06/14/2025 2:02 PM EDT [facility] pCO2, Temp Corrected, Arterial 38 32 - 45 mm Hg 06/14/2025 2:02 PM EDT [facility] pO2, Temp Corrected, Arterial 376 >80 mm Hg 06/14/2025 2:02 PM EDT [facility] Building [employer] ID Ricki Zamarripa 06/14/2025 2:02 PM EDT [facility] Blood Whole blood specimen / Unknown 06/14/2025 2:00 PM EDT 06/14/2025 2:02 PM EDT us Phillip Clark MD LAB POINT OF CARE TE ST DOCKED DEVICE UNSOLICITED RESULTS Final Result [facility] [address] [place] [address] * (ABNORMAL) POCT arterial blood gas gem (06/14/2025 1:22 PM EDT) pH, Arterial 7.34 7.31 - 7.42 06/14/2025 1:23 PM EDT [facility] pCO2, Arterial 41 32 - 45 mm Hg 06/14/2025 1:23 PM EDT [facility] pO2, Arterial 518 >80 mm Hg 06/14/2025 1:23 PM EDT [facility] SO2, Arterial 100(H) 94 - 98 % 06/14/2025 1:23 PM EDT [facility] Base Excess, Arterial -3.5(L) -2 - 3 mmol/L 06/14/2025 1:23 PM T [facility] HCO3, Arterial 22.1 22 - 26 mmol/L 06/14/2025 1:23 PM EDT [facility] Total Hemoglobin, Arterial, Whole Blood 13.2(L) 13.7 - 17.5 g/dL 06/14/2025 1: PM T [facility] Hematocrit, Arterial 40.0 40 - 51.0 % 06/14/2025 1: PM T [facility] Sodium, Arterial 139 136 - 145 mmol/L 06/14/2025 1:23 PM T [facility] Potassium, Arterial 3.3(L) 3.6 - 4.9 mmol/L 06/14/2025 1:23 PM T [facility] Chloride, Whole Blood 104 97 - 107 mmol/L 06/14/2025 1:23 PM T [facility] Glucose, Arterial 137(H) 74 - 99 mg/dL 06/14/2025 1: PM T [facility] Ionized Calcium, Arterial 4.2(L) 4.6 - 5.1 mg/dL 06/14/2025 1:23 PM T [facility] Lactate, Arterial 3.0(H) 0.5 - 1.6 mmol/L 06/14/2025 1:23 PM EDT [facility] Body Temperature 37.0 Celsius 06/14/2025 1:23 PM T [facility] pH, Temp Corrected, Arterial 7.34 7.31 - 7.42 06/14/2025 1:23 PM T [facility] pCO2, Temp Corrected, Arterial 41 32 - 45 mm Hg 06/14/2025 1:23 PM EDT [facility] pO2, Temp Corrected, Arterial 518 >80 mm Hg 06/14/2025 1:23 PM EDT [facility] Building [employer]cutter ID Soni Zamarripan 06/14/2025 1:23 PM EDT [facility] Blood Whole blood specimen / Unknown 06/14/2025 1:22 PM EDT 06/14/2025 1:23 PM EDT Phillip Clark MD LAB POINT OF CARE TE ST DOCKED DEVICE UNSOLICITED RESULTS Final Result Performing Organization Address City/State/[facility] Co de Phone Number [facility] [address] [place] [address] * (ABNORMAL) POCT arterial blood gas gem (06/14/2025 12:52 PM EDT) pH, Arterial 7.40 7.31 - 7.42 06/14/2025 12:54 PM EDT [facility] pCO2, Arterial 35 32 - 45 mm Hg 06/14/2025 12:54 PM EDT [facility] pO2, Arterial 399 >80 mm Hg 06/14/2025 12:54 PM EDT [facility] SO2, Arterial 100(H) 94 - 98 % 06/14/2025 12:54 PM EDT [facility] Base Excess, Arterial -2.6(L) -2 - 3 mmol/L 06/14/2025 12:54 PM EDT [facility] HCO3, Arterial 21.7(L) 22 - 26 mmol/L 06/14/2025 12:54 PM EDT [facility] Total Hemoglobin, Arterial, Whole Blood 11.7(L) 13.7 - 17.5 g/dL 06/14/2025 12:54 PM EDT [facility] Hematocrit, Arterial 35.0(L) 40 - 51.0 % 06/14/2025 12:54 PM EDT [facility] Sodium, Arterial 134(L) 136 - 145 mmol/L 06/14/2025 12:54 PM EDT [facility] Potassium, Arterial 4.2 3.6 - 4.9 mmol/L 06/14/2025 12:54 PM EDT [facility] Chloride, Whole Blood 107 97 - 107 mmol/L 06/14/2025 12:54 PM EDT [facility] Glucose, Arterial 148(H) 74 - 99 mg/dL 06/14/2025 12:54 PM EDT [facility] Ionized Calcium, Arterial 4.1(L) 4.6 - 5.1 mg/dL 06/14/2025 12:54 PM EDT [facility] Lactate, Arterial 2.2(H) 0.5 - 1.6 mmol/L 06/14/2025 12:54 PM EDT [facility] Body Temperature 37.0 Celsius 06/14/2025 12:54 PM EDT [facility] pH, Temp Corrected, Arterial 7.40 7.31 - 7.42 06/14/2025 12:54 PM EDT [facility] pCO2, Temp Corrected, Arterial 35 32 - 45 mm Hg 06/14/2025 12:54 PM EDT [facility] pO2, Temp Corrected, Arterial 399 >80 mm Hg 06/14/2025 12:54 PM EDT [facility] Building Stonecutter ID Jean Claude Staley 06/14/2025 12:54 PM EDT [facility] Blood Whole blood specimen / Unknown 06/14/2025 12:52 PM EDT 06/14/2025 12:54 PM EDT Phillip Clark MD LAB POINT OF CARE TE ST DOCKED DEVICE UNSOLICITED RESULTS Final Result [facility] [address] [place] [address] * POCT ACT (06/14/2025 12:43 PM EDT) ACT+ (HIGH RANGE) 98 68 - 600 Seconds 06/14/2025 12:49 PM EDT [facility] Building Stonecutter ID Vick Dupont 06/14/2025 12:49 PM EDT [facility] ACT Device ID [id number] 06/14/2025 12:49 PM EDT [facility] Comment 06/14/2025 12:49 PM EDT [facility] Comment: ACT performed by [...] ST DOCKED DEVICE UNSOLICITED RESULTS Final Result [facility] [address] [facility] [address] [place] [address] * (ABNORMAL) POCT arterial blood gas gem (06/14/2025 12:16 PM EDT) pH, Arterial 7.42 7.31 - 7.42 06/14/2025 12:19 PM EDT [facility] pCO2, Arterial 36 32 - 45 mm Hg 06/14/2025 12:19 PM EDT [facility] pO2, Arterial 358 >80 mm Hg 06/14/2025 12:19 PM EDT [facility] SO2, Arterial 99(H) 94 - 98 % 06/14/2025 12:19 PM EDT [facility] Base Excess, Arterial -0.8 -2 - 3 mmol/L 06/14/2025 12:19 PM EDT [facility] HCO3, Arterial 23.4 22 - 26 mmol/L 06/14/2025 12:19 PM EDT [facility] Total Hemoglobin, Arterial, Whole Blood 11.3(L) 13.7 - 17.5 g/dL 06/14/2025 12:19 PM EDT [facility] Hematocrit, Arterial 34.0(L) 40 - 51.0 % 06/14/2025 12:19 PM EDT [facility] Sodium, Arterial 134(L) 136 - 145 mmol/L 06/14/2025 12:19 PM EDT [facility] Potassium, Arterial 5.7(H) 3.6 - 4.9 mmol/L 06/14/2025 12:19 PM EDT [facility] Chloride, Whole Blood 105 97 - 107 mmol/L 06/14/2025 12:19 PM EDT [facility] Glucose, Arterial 119(H) 74 - 99 mg/dL 06/14/2025 12:19 PM EDT [facility] Ionized Calcium, Arterial 4.0(L) 4.6 - 5.1 mg/dL 06/14/2025 12:19 PM EDT [facility] Lactate, Arterial 1.6 0.5 - 1.6 mmol/L 06/14/2025 12:19 PM EDT [facility] Body Temperature 37.0 Celsius 06/14/2025 12:19 PM EDT [facility] pH, Temp Corrected, Arterial 7.42 7.31 - 7.42 06/14/2025 12:19 PM EDT [facility] pCO2, Temp Corrected, Arterial 36 32 - 45 mm Hg 06/14/2025 12:19 PM EDT [facility] pO2, Temp Corrected, Arterial 358 >80 mm Hg 06/14/2025 12:19 PM EDT [facility] Building Stonecutter ID Vick Dupont 06/14/2025 12:19 PM EDT [facility] Blood Whole blood specimen / Unknown 06/14/2025 12:16 PM EDT 06/14/2025 12:19 PM EDT us Phillip Clark MD LAB POINT OF CARE TE ST DOCKED DEVICE UNSOLICITED RESULTS Final Result Performing Organization Address City/State/[facility] Co de Phone Number [facility] [address] [place] [address] * (ABNORMAL) POCT arterial blood gas gem (06/14/2025 12:06 PM EDT) pH, Arterial 7.39 7.31 - 7.42 06/14/2025 12:09 PM EDT [facility] pCO2, Arterial 40 32 - 45 mm Hg 06/14/2025 12:09 PM EDT [facility] pO2, Arterial 378 >80 mm Hg 06/14/2025 12:09 PM EDT [facility] SO2, Arterial 100(H) 94 - 98 % 06/14/2025 12:09 PM EDT [facility] Base Excess, Arterial -0.7 -2 - 3 mmol/L 06/14/2025 12:09 PM EDT [facility] HCO3, Arterial 24.2 22 - 26 mmol/L 06/14/2025 12:09 PM EDT [facility] Total Hemoglobin, Arterial, Whole Blood 11.5(L) 13.7 - 17.5 g/dL 06/14/2025 12:09 PM EDT [facility] Hematocrit, Arterial 35.0(L) 40 - 51.0 % 06/14/2025 12:09 PM EDT [facility] Sodium, Arterial 134(L) 136 - 145 mmol/L 06/14/2025 12:09 PM EDT [facility] Potassium, Arterial 5.0(H) 3.6 - 4.9 mmol/L 06/14/2025 12:09 PM EDT [facility] Chloride, Whole Blood 105 97 - 107 mmol/L 06/14/2025 12:09 PM EDT [facility] Glucose, Arterial 123(H) 74 - 99 mg/dL 06/14/2025 12:09 PM EDT [facility] Ionized Calcium, Arterial 4.2(L) 4.6 - 5.1 mg/dL 06/14/2025 12:09 PM EDT [facility] Lactate, Arterial 1.2 0.5 - 1.6 mmol/L 06/14/2025 12:09 PM EDT [facility] Body Temperature 37.0 Celsius 06/14/2025 12:09 PM EDT [facility] pH, Temp Corrected, Arterial 7.39 7.31 - 7.42 06/14/2025 12:09 PM EDT [facility] pCO2, Temp Corrected, Arterial 40 32 - 45 mm Hg 06/14/2025 12:09 PM EDT [facility] pO2, Temp Corrected, Arterial 378 >80 mm Hg 06/14/2025 12:09 PM EDT [facility] Building Stonecutter ID Vick Dupont 06/14/2025 12:09 PM EDT [facility] Blood Whole blood specimen / Unknown 06/14/2025 12:06 PM EDT 06/14/2025 12:09 PM EDT us Phillip Clark MD LAB POINT OF CARE TE ST DOCKED DEVICE UNSOLICITED RESULTS Final Result [facility] [address] [place] [address] * (ABNORMAL) QPLUS (06/14/2025 11:55 AM EDT) [...] Seconds 06/14/2025 12:12 PM EDT [facility] Building Stonecutter ID Ricki Zamarripa 06/14/2025 12:12 PM EDT [facility] Device ID [id number] 06/14/2025 12:12 PM EDT [facility] Whole Blood 06/14/2025 11:5 5 AM EDT 06/14/2025 12:12 PM EDT Narrative [facility] - 06/14/2025 12:[address]: No Clot Detected us Phillip Clark MD LAB POINT OF CARE TE ST DOCKED DEVICE UNSOLICITED RESULTS Final Result [facility] [address] [place] [address] * POCT ACT (06/14/2025 11:54 AM EDT) ACT+ (HIGH RANGE) 510 68 - 600 Seconds 06/14/2025 12:07 PM EDT [facility] Building Stonecutter ID Vick Dupont 06/14/2025 12:07 PM EDT [facility] ACT Device ID [id number] 06/14/2025 12:07 PM EDT [facility] Comment 06/14/2025 12:07 PM EDT [facility] Comment: ACT performed by [...] ST DOCKED DEVICE UNSOLICITED RESULTS Final Result [facility] [address] LAB [address] [place] [address] * (ABNORMAL) POCT arterial blood gas gem (06/14/2025 11:33 AM EDT) pH, Arterial 7.37 7.31 - 7.42 06/14/2025 11:35 AM EDT [facility] pCO2, Arterial 43 32 - 45 mm Hg 06/14/2025 11:35 AM EDT [facility] pO2, Arterial 380 >80 mm Hg 06/14/2025 11:35 AM EDT [facility] SO2, Arterial 99(H) 94 - 98 % 06/14/2025 11:35 AM EDT [facility] Base Excess, Arterial -0.5 -2 - 3 mmol/L 06/14/2025 11:35 AM EDT [facility] HCO3, Arterial 24.9 22 - 26 mmol/L 06/14/2025 11:35 AM EDT [facility] Total Hemoglobin, Arterial, Whole Blood 11.5(L) 13.7 - 17.5 g/dL 06/14/2025 11:35 AM EDT [facility] Hematocrit, Arterial 35.0(L) 40 - 51.0 % 06/14/2025 11:35 AM EDT [facility] Sodium, Arterial 134(L) 136 - 145 mmol/L 06/14/2025 11:35 AM EDT [facility] Potassium, Arterial 5.6(H) 3.6 - 4.9 mmol/L 06/14/2025 11:35 AM EDT [facility] Chloride, Whole Blood 103 97 - 107 mmol/L 06/14/2025 11:35 AM EDT [facility] Glucose, Arterial 123(H) 74 - 99 mg/dL 06/14/2025 11:35 AM EDT [facility] Ionized Calcium, Arterial 4.2(L) 4.6 - 5.1 mg/dL 06/14/2025 11:35 AM EDT [facility] Lactate, Arterial 1.0 0.5 - 1.6 mmol/L 06/14/2025 11:35 AM EDT [facility] Body Temperature 37.0 Celsius 06/14/2025 11:35 AM EDT [facility] pH, Temp Corrected, Arterial 7.37 7.31 - 7.42 06/14/2025 11:35 AM EDT [facility] pCO2, Temp Corrected, Arterial 43 32 - 45 mm Hg 06/14/2025 11:35 AM EDT [facility] pO2, Temp Corrected, Arterial 380 >80 mm Hg 06/14/2025 11:35 AM EDT [facility] Building Stonecutter ID Vick Dupont 06/14/2025 11:35 AM EDT [facility] Blood Whole blood specimen / Unknown 06/14/2025 11:33 AM EDT 06/14/2025 11:35 AM EDT Phillip Clark MD LAB POINT OF CARE TE ST DOCKED DEVICE UNSOLICITED RESULTS Final Result Performing Organization Address [facility] de Phone Number [facility] [address] [place] [address] * POCT ACT (06/14/2025 11:24 AM EDT) [facility] Signature ACT+ (HIGH RANGE) 520 68 - 600 Seconds 06/14/2025 11:37 AM EDT [facility] Building Stonecutter ID Vick Dupont 06/14/2025 11:37 AM EDT [facility] ACT Device ID [id number] 06/14/2025 11:37 AM EDT [facility] Comment 06/14/2025 11:37 AM EDT [facility] Comment: ACT performed by [...] UNSOLICITED RESULTS Final Result Performing Organization Address [facility]/ZIP Co de Phone Number [facility] [address] LAB [address] [place] [address] * (ABNORMAL) POCT arterial blood gas gem (06/14/2025 11:03 AM EDT) pH, Arterial 7.40 7.31 - 7.42 06/14/2025 11:04 AM EDT [facility] pCO2, Arterial 41 32 - 45 mm Hg 06/14/2025 11:04 AM EDT [facility] pO2, Arterial 406 >80 mm Hg 06/14/2025 11:04 AM EDT [facility] SO2, Arterial 100(H) 94 - 98 % 06/14/2025 11:04 AM EDT [facility] Base Excess, Arterial 0.5 -2 - 3 mmol/L 06/14/2025 11:04 AM EDT [facility] HCO3, Arterial 25.4 22 - 26 mmol/L 06/14/2025 11:04 AM EDT [facility] Total Hemoglobin, Arterial, Whole Blood 11.9(L) 13.7 - 17.5 g/dL 06/14/2025 11:04 AM EDT [facility] Hematocrit, Arterial 36.0(L) 40 - 51.0 % 06/14/2025 11:04 AM EDT [facility] Sodium, Arterial 133(L) 136 - 145 mmol/L 06/14/2025 11:04 AM EDT [facility] Potassium, Arterial 5.3(H) 3.6 - 4.9 mmol/L 06/14/2025 11:04 AM EDT [facility] Chloride, Whole Blood 103 97 - 107 mmol/L 06/14/2025 11:04 AM EDT [facility] Glucose, Arterial 121(H) 74 - 99 mg/dL 06/14/2025 11:04 AM EDT [facility] Ionized Calcium, Arterial 4.2(L) 4.6 - 5.1 mg/dL 06/14/2025 11:04 AM EDT [facility] Lactate, Arterial 1.0 0.5 - 1.6 mmol/L 06/14/2025 11:04 AM EDT [facility] Body Temperature 37.0 Celsius 06/14/2025 11:04 AM EDT [facility] pH, Temp Corrected, Arterial 7.40 7.31 - 7.42 06/14/2025 11:04 AM EDT [facility] pCO2, Temp Corrected, Arterial 41 32 - 45 mm Hg 06/14/2025 11:04 AM EDT [facility] pO2, Temp Corrected, Arterial 406 >80 mm Hg 06/14/2025 11:04 AM EDT [facility] Building Stonecutter ID Vick Dupont 06/14/2025 11:04 AM EDT [facility] Blood Whole blood specimen / Unknown 06/14/2025 11:03 AM EDT 06/14/2025 11:04 AM EDT us Phillip Clark MD LAB POINT OF CARE TE ST DOCKED DEVICE UNSOLICITED RESULTS Final Result Performing Organization Address City/[facility] Co de Phone Number [facility] [address] [place] [address] * POCT ACT (06/14/2025 10:57 AM EDT) [facility] Signature ACT+ (HIGH RANGE) 569 68 - 600 Seconds 06/14/2025 11:09 AM EDT [facility] Building Stonecutter ID Vick Dupont 06/14/2025 11:09 AM EDT [facility] ACT Device ID [id number] 06/14/2025 11:09 AM EDT [facility] Comment 06/14/2025 11:09 AM EDT [facility] Comment: ACT performed by [...] UNSOLICITED RESULTS Final Result Performing Organization Address [facility] Co de Phone Number [facility] [address] LAB [address] [place] [address] * (ABNORMAL) POCT arterial blood gas gem (06/14/2025 10:33 AM [facility]) pH, Arterial 7.39 7.31 - 7.42 06/14/2025 10:34 AM [facility] pCO2, Arterial 41 32 - 45 mm Hg 06/14/2025 10:34 AM [facility] pO2, Arterial 349 >80 mm Hg 06/14/2025 10:34 AM [facility] SO2, Arterial 99(H) 94 - 98 % 06/14/2025 10:34 AM [facility] Base Excess, Arterial -0.2 -2 - 3 mmol/L 06/14/2025 10:34 AM [facility] HCO3, Arterial 24.8 22 - 26 mmol/L 06/14/2025 10:34 AM [facility] Total Hemoglobin, Arterial, Whole Blood 10.9(L) 13.7 - 17.5 g/dL 06/14/2025 10:34 AM [facility] Hematocrit, Arterial 33.0(L) 40 - 51.0 % 06/14/2025 10:34 AM [facility] Sodium, Arterial 135(L) 136 - 145 mmol/L 06/14/2025 10:34 AM [facility] Potassium, Arterial 4.8 3.6 - 4.9 mmol/L 06/14/2025 10:34 AM [facility] Chloride, Whole Blood 103 97 - 107 mmol/L 06/14/2025 10:34 AM [facility] Glucose, Arterial 116(H) 74 - 99 mg/dL 06/14/2025 10:34 AM [facility] Ionized Calcium, Arterial 4.1(L) 4.6 - 5.1 mg/dL 06/14/2025 10:34 AM [facility] Lactate, Arterial 1.3 0.5 - 1.6 mmol/L 06/14/2025 10:34 AM [facility] Body Temperature 37.0 Celsius 06/14/2025 10:34 AM [facility] pH, Temp Corrected, Arterial 7.39 7.31 - 7.42 06/14/2025 10:34 AM [facility] pCO2, Temp Corrected, Arterial 41 32 - 45 mm Hg 06/14/2025 10:34 AM EDT [facility] pO2, Temp Corrected, Arterial 349 >80 mm Hg 06/14/2025 10:34 AM EDT [facility] Building Stonecutter ID Vick Dupont 06/14/2025 10:34 AM EDT [facility] Blood Whole blood specimen / Unknown 06/14/2025 10:33 AM EDT 06/14/2025 10:34 AM EDT us Phillip Clark MD LAB POINT OF CARE TE ST DOCKED DEVICE UNSOLICITED RESULTS Final Result Performing Organization Address City/[facility] Co de Phone Number [facility] [address] [place] [address] * (ABNORMAL) POCT ACT (06/14/2025 10:26 AM EDT) ACT+ (HIGH RANGE) >600(H) 68 - 600 Seconds 06/14/2025 10:40 AM EDT [facility] Building Stonecutter ID Vick Dupont 06/14/2025 10:40 AM EDT [facility] ACT Device ID [id number] 06/14/2025 10:40 AM EDT [facility] Comment 06/14/2025 10:40 AM EDT [facility] Comment: ACT performed by [...] UNSOLICITED RESULTS Final Result Performing Organization Address [facility] Co de Phone Number [facility] [address] [place] [address] * Surgical Pathology Exam (06/14/2025 10:18 AM EDT) Case Report Surgical Pathology Case: [id number] Authorizing Provider: Phillip Clark MD Collected: 06/14/2025 1018 Ordering Location: [facility] A OPERATING ROOM Received: 06/14/2025 1413 Pathologist: Beth Lake MD Specimen: Heart, aortic valve leaflets 06/15/2025 11:44 AM EDT [facility] Final Diagnosis A. AORTIC VALVE LEAFLETS, REPLACEMENT: - FIBROSIS AND MYXOID DEGENERATION. 06/15/2025 11:44 AM EDT [facility] at 1144 EDT Clinical Information Severe aortic regurgitation [I35.1] 06/15/2025 11:44 AM EDT [facility] Gross Description A. AORTIC VALVE LEAFLETS Received fresh and placed in formalin labeled aortic valve leaflets are 2 white-montez soft cardiac leaflets ranging in size from 2.5-4.0 cm in greatest dimension. Pet Handler sections are submitted in cassette A1. Cold Time: 3h 55m April T Santos 06/15/2025 11:44 AM EDT [facility] Tissue Heart structure / Unknown 06/14/2025 10:18 AM EDT 06/14/2025 2:13 PM EDT Comment:Pre-op diagnosis: Severe aortic regurgitation [I35.1] us Phillip Clark MD LAB PATHOLOGY ORDERABLES Fin al Result [facility] [address] [place] [address] * (ABNORMAL) POCT arterial blood gas gem (06/14/2025 10:08 AM EDT) pH, Arterial 7.40 7.31 - 7.42 06/14/2025 10:17 AM EDT [facility] pCO2, Arterial 40 32 - 45 mm Hg 06/14/2025 10:17 AM EDT [facility] pO2, Arterial 410 >80 mm Hg 06/14/2025 10:17 AM EDT [facility] SO2, Arterial 100(H) 94 - 98 % 06/14/2025 10:17 AM EDT [facility] Base Excess, Arterial 0.0 -2 - 3 mmol/L 06/14/2025 10:17 AM EDT [facility] HCO3, Arterial 24.8 22 - 26 mmol/L 06/14/2025 10:17 AM EDT [facility] Total Hemoglobin, Arterial, Whole Blood 10.1(L) 13.7 - 17.5 g/dL 06/14/2025 10:17 AM EDT [facility] Hematocrit, Arterial 30.0(L) 40 - 51.0 % 06/14/2025 10:17 AM EDT [facility] Sodium, Arterial 133(L) 136 - 145 mmol/L 06/14/2025 10:17 AM EDT [facility] Potassium, Arterial 4.7 3.6 - 4.9 mmol/L 06/14/2025 10:17 AM EDT [facility] Chloride, Whole Blood 104 97 - 107 mmol/L 06/14/2025 10:17 AM EDT [facility] Glucose, Arterial 122(H) 74 - 99 mg/dL 06/14/2025 10:17 AM T [facility] Ionized Calcium, Arterial 3.9(L) 4.6 - 5.1 mg/dL 06/14/2025 10:17 AM EDT [facility] Lactate, Arterial 1.5 0.5 - 1.6 mmol/L 06/14/2025 10:17 AM EDT [facility] Body Temperature 37.0 Celsius 06/14/2025 10:17 AM T [facility] pH, Temp Corrected, Arterial 7.40 7.31 - 7.42 06/14/2025 10:17 AM EDT [facility] pCO2, Temp Corrected, Arterial 40 32 - 45 mm Hg 06/14/2025 10:17 AM EDT [facility] pO2, Temp Corrected, Arterial 410 >80 mm Hg 06/14/2025 10:17 AM EDT [facility] Building Stonecutter ID Vick Dupont 06/14/2025 10:17 AM EDT [facility] Blood Whole blood specimen / Unknown 06/14/2025 10:08 AM EDT 06/14/2025 10:17 AM EDT us Phillip Clark MD LAB POINT OF CARE TE ST DOCKED DEVICE UNSOLICITED RESULTS Final Result [facility] [address] [place] [address] * (ABNORMAL) POCT ACT (06/14/2025 10:04 AM EDT) ACT+ (HIGH RANGE) >600(H) 68 - 600 Seconds 06/14/2025 10:19 AM EDT [facility] Building Stonecutter ID Vick Dupont 06/14/2025 10:19 AM EDT [facility] ACT Device ID [id number] 06/14/2025 10:19 AM EDT [facility] Comment 06/14/2025 10:19 AM EDT [facility] Comment: ACT performed by [...] DEVICE UNSOLICITED RESULTS Final Result [facility] [address] [place] [address] LAB [address] [place] [address] * POCT ACT (06/14/2025 8:13 AM EDT) ACT+ (HIGH RANGE) 90 68 - 600 Seconds 06/14/2025 8:20 AM EDT [facility] Building Stonecutter ID Kevin Hernandez 06/14/2025 8:20 AM EDT [facility] ACT Device ID [id number] 06/14/2025 8:20 AM EDT [facility] Comment 06/14/2025 8:20 AM EDT [facility] Comment: ACT performed by [...] ST DOCKED DEVICE UNSOLICITED RESULTS Final Result [facility] [address] LAB [address] [place] [address] * (ABNORMAL) POCT arterial blood gas gem (06/14/2025 8:13 AM EDT) pH, Arterial 7.38 7.31 - 7.42 06/14/2025 8:15 AM EDT [facility] pCO2, Arterial 40 32 - 45 mm Hg 06/14/2025 8:15 AM EDT [facility] pO2, Arterial 91 >80 mm Hg 06/14/2025 8:15 AM EDT [facility] SO2, Arterial 99(H) 94 - 98 % 06/14/2025 8:15 AM EDT [facility] Base Excess, Arterial -1.3 -2 - 3 mmol/L 06/14/2025 8:15 AM EDT [facility] HCO3, Arterial 23.7 22 - 26 mmol/L 06/14/2025 8:15 AM EDT [facility] Total Hemoglobin, Arterial, Whole Blood 14.5 13.7 - 17.5 g/dL 06/14/2025 8:15 AM EDT [facility] Hematocrit, Arterial 44.0 40 - 51.0 % 06/14/2025 8:15 AM EDT [facility] Sodium, Arterial 135(L) 136 - 145 mmol/L 06/14/2025 8:15 AM EDT [facility] Potassium, Arterial 4.1 3.6 - 4.9 mmol/L 06/14/2025 8:15 AM EDT [facility] Chloride, Whole Blood 103 97 - 107 mmol/L 06/14/2025 8:15 AM EDT [facility] Glucose, Arterial 95 74 - 99 mg/dL 06/14/2025 8:15 AM EDT [facility] Ionized Calcium, Arterial 4.7 4.6 - 5.1 mg/dL 06/14/2025 8:15 AM EDT [facility] Lactate, Arterial 0.8 0.5 - 1.6 mmol/L 06/14/2025 8:15 AM EDT [facility]ALTH[facility] Body Temperature 37.0 Celsius 06/14/2025 8:15 AM EDT [facility] pH, Temp Corrected, Arterial 7.38 7.31 - 7.42 06/14/2025 8:15 AM EDT [facility] pCO2, Temp Corrected, Arterial 40 32 - 45 mm Hg 06/14/2025 8:15 AM EDT [facility] pO2, Temp Corrected, Arterial 91 >80 mm Hg 06/14/2025 8:15 AM EDT [facility] Building Stonecutter ID Lb Coreas 06/14/2025 8:15 AM EDT [facility] Blood Whole blood specimen / Unknown 06/14/2025 8:13 AM EDT 06/14/2025 8:15 AM EDT Phillip Clark MD LAB POINT OF CARE TE ST DOCKED DEVICE UNSOLICITED RESULTS Final Result Performing Organization Address City/[facility] Co de Phone Number [facility]ARE [facility] [address] [place] [address] * Type and Screen (06/14/2025 6:27 AM [...] ORDERABL ES Final Result Performing Organization Address City/[facility] Co de Phone Number BLOOD BANK [address] [place] [address], * POCT glucose meter (06/14/2025 6:23 AM [...] Comment 06/14/2025 6:24 AM EDT [facility]ALTH[facility]ARE [facility] Building Stonecutter ID Kassi Sinha 06/14/2025 6:24 AM EDT [facility] Device ID [id number] 06/14/2025 6:24 AM EDT [facility] Specimen Type POC Venous 06/14/2025 6:24 AM EDT [facility] Blood Venous blood specimen / Unknown 06/14/2025 6:23 AM EDT 06/14/2025 6:24 AM EDT Phillip Clark MD LAB POINT OF CARE TE ST DOCKED DEVICE UNSOLICITED RESULTS Final Result Performing Organization Address City/State/[facility] Co de Phone Number [facility] [address] [place] [address] documented in this encounter Visit Diagnoses Diagnosis Aortic valve regurgitation- Primary Aortic valve disorders Severe aortic regurgitation Other secondary hypertension S/P AVR Severe aortic regurgitation BMI 30.0-30.9,adult High cholesterol Pure hypercholesterolemia Diabetes Type II or unspecified type diabetes mellitus without mention of complication, not stated as uncontrolled Hypertension Unspecified essential hypertension CAD (coronary artery disease) Coronary atherosclerosis of unspecified type of vessel, [place] or graft History of coronary angioplasty with [...] 10 mg, Oral, Daily, First dose on Beatirs 06/16/25 at 1015, Until Discontinued, Routine Given [...] Brittaney Dumas RN)2003 (Given - Provider: Lori oMlina RN) 0846 (Given - Provider: Vicente Hussein [...] add comment - Comment: dose given by manager shift rn @ [address] [place], [place] [address]Daiana instructed assembly instructions writer to hold 0900 dose)2003 (Given - [...] 17 g, Oral, Daily, First dose on Betaris 06/16/25 at 1115, Until Discontinued, Routine 0821 [...] documented as of this encounter Care Teams Wetlands Technician Relationship Specialty [place] [id number] PCP - General 02/28/25 documented as of this encounter
--- OUTSIDE RECORDS SUMMARY | 2025-07-07 13:39 | XMS_ITS | Encounter Summary ---
Author Organization [facility] Address [address] [place] [address] Care Team Providers Care Transit Bus Operator Name Role Phone Kamran Singh MD Primary Care Provider [phone] Encounter Details Date Type Department Care Team (Latest Contact Info) Description 07/07/2025 1:39 PM EST - 07/07/2025 11:59 PM EST Hospital Encounter [place] [facility] [address], [address] [place] [address] Ascending aortic aneurysm, unspecified whether ruptured (CMS/[facility]) Discharge Disposition: Home or Self Care [...] in a longterm (including now)? No 06/15/2025 [facility] Utilities Answer Date Recorded In [...] PM EST Appointment Cardiac Imaging [address] [place] [address] 07/20/2026 1:40 PM EST Office Visit [place] [facility] [address], [facility] [address] [place] [address] Phillip Clark MD [address] [place] [address] documented as of this encounter Procedures Procedure [...] documented as of this encounter Care Teams Transit Bus Operator Relationship Specialty Start Date End Date Kamran Singh MD [id number] PCP - General 02/28/25 documented as of this encounter
--- OUTSIDE RECORDS SUMMARY | 2025-07-07 14:40 | XMS_ITS | Encounter Summary ---
Author Organization [facility] Address [address] [place] [id number] Care Team Providers Care Robotic Machine Tender Production Name Role Phone Kamran Singh MD Primary Care Provider [phone] Reason for Referral * Imaging (Routine) - Pending Review Specialty Diagnoses / Procedures Referred By Nathalia t Referred To Contact Cardiology Diagnoses Ascending aortic aneurysm, unspecified whether ruptured (CMS/HCC) Procedures Echo, Adult Transthoracic Complete Phillip Clark MD [address] [address] Phone: tel: fax: Referral ID Status Reason Start Date Expiration Date Visits Requested Visits Authorized [id number] Pending Review Perform Procedure 07/07/2025 01/06/2027 1 1 Encounter Details Date Type Department Care Team (Late st Contact Info) Description 07/07/2025 2:40 PM EST Office Visit [place] [facility] [address], [address] [address] Phillip Clark MD [address] [address] Ascending aortic aneurysm, unspecified whether [...] time in the past 12 m [facility], were you homeless or living in a detention (including now)? No 06/15/2025 [facility] Utilities Answer Date Recorded In the past 12 months has th e electric, gas, oil, or water [employer] threatened to shut off services in your [...] sensation and reflexes and motor intact Skin: [place], warm, well perfused Incision clean and healing [...] well overall. 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 Planning to start cardiac rehab in next [...] PM EST Appointment Cardiac Imaging [address] [place] [address] 07/20/2026 1:40 PM EST Office Visit [facility] [address], [address] [place] [address] Phillip Clark MD [address] [place] [address] Scheduled Orders Name Type Priority Associated Diagnoses [...] LAB COAGULATION METHOD 07/07/2025 3:17 PM EST [facility] INR 1.7(H) 0.9 - 1.1 LAB COAGULATION METHOD 07/07/2025 3:17 PM EST [facility] Blood Venous blood specimen / Unknown Venipuncture / Unknown 07/07/2025 1:35 PM EST 07/07/2025 1:35 PM EST Narrative [facility] - 07/07/2025 3:17 PM EST OPTIMAL INR RANGES FOR PATIENT ON ORAL ANTICOAGULANT THERAPY Prevention of venous thromboembolism INR 2.0 to 3.0 In patients with heart disease: Atrial fibrillation INR 2.0 to 3.0 Valvular heart disease INR 2.0 to 3.0 Tissue heart valves INR 2.0 to 3.0 Mechanical prosthetic valves INR 2.5 to 3.5 Prevention of recurrent [place] INR 2.5 to 3.5 us Phillip Clark MD LAB BLOOD ORDERABLES Final R esult [facility] [address] [place] [address] * Basic Metabolic Panel, Plasma (07/07/2025 1:35 PM EST) Glucose, Plasma 87 74 - 99 mg/dL 07/07/2025 3:00 PM EST [facility] BUN, Plasma 21 8 - 23 mg/dL 07/07/2025 3:00 PM EST [facility] Creatinine, Plasma 0.99 0.70 - 1.20 mg/dL 07/07/2025 3:00 PM EST [facility] BUN/Creatinine Ratio 21 07/07/2025 3:00 PM EST [facility] Sodium, Plasma 136 136 - 145 mmol/L 07/07/2025 3:00 PM EST [facility] Potassium, Plasma 4.7 3.6 - 4.9 mmol/L 07/07/2025 3:00 PM EST [facility] Chloride, Plasma 99 97 - 107 mmol/L 07/07/2025 3:00 PM EST [facility] CO2, Plasma 26 22 - 29 mmol/L 07/07/2025 3:00 PM EST [facility] Anion Gap 11 6 - 16 mmol/L 07/07/2025 3:00 PM EST [facility] Total Calcium, Plasma 9.4 8.9 - 10.2 mg/dL 07/07/2025 3:00 PM EST [facility] eGFRcr 82.5 mL/min/1.7 3m*2 07/07/2025 3:00 PM EST [facility] Comment:Reported eGFRcr in m L/min/1.73m2 is based the CKD-EPI 2020 equation that does not use a race coefficient. Blood Venous blood specimen / Unknown Venipuncture / Unknown 07/07/2025 1:35 PM EST 07/07/2025 1:35 PM EST us Phillip Clark MD LAB BLOOD ORDERABLES Final R esult [facility] [address] [place] [address] * (ABNORMAL) CBC W/O Differential (07/07/2025 1:35 PM EST) WBC Count 6.93 3.70 - 10.30 10*3/uL LAB HEMATOLOGY METHOD 07/07/2025 2:47 PM EST [facility] RBC Count 4.43(L) 4.60 - 6.10 10*6/uL LAB HEMATOLOGY METHOD 07/07/2025 2:47 PM EST [facility] HGB 12.1(L) 13.7 - 17.5 g/dL LAB HEMATOLOGY METHOD 07/07/2025 2:47 PM EST [facility] HCT 38.1(L) 40.0 - 51.0 % LAB HEMATOLOGY METHOD 07/07/2025 2:47 PM EST [facility] Platelet Count 391(H) 155 - 369 10*3/uL LAB HEMATOLOGY METHOD 07/07/2025 2:47 PM EST [facility] MCV 86 79 - 98 fL LAB HEMATOLOGY METHOD 07/07/2025 2:47 PM EST [facility] MCH 27.3 26.0 - 32.0 pg LAB HEMATOLOGY METHOD 07/07/2025 2:47 PM EST [facility] MCHC 31.8 30.7 - 35.5 g/dL LAB HEMATOLOGY METHOD 07/07/2025 2:47 PM EST [facility] RDW 15.2(H) 11.5 - 14.5 % LAB HEMATOLOGY METHOD 07/07/2025 2:47 PM EST [facility] MPV 9.1 8.8 - 12.5 fL LAB HEMATOLOGY METHOD 07/07/2025 2:47 PM EST [facility] nRBC 0.0 <=0.0 per 100 WBCs LAB HEMATOLOGY METHOD 07/07/2025 2:47 PM EST [facility] Blood Venous blood specimen / Unknown Venipuncture / Unknown 07/07/2025 1:35 PM EST 07/07/2025 1:35 PM EST us Phillip Clark MD LAB BLOOD ORDERABLES Final R esult [facility] [address] [place] [address] documented in this encounter Visit Diagnoses Diagnosis [...] documented as of this encounter Care Teams Robotic Machine Tender Production Relationship Specialty [place] [id number] PCP - General 02/28/25 documented as of this encounter
--- OUTSIDE RECORDS SUMMARY | 2025-08-02 07:15 | XMS_ITS | Encounter Summary ---
Author Organization [facility] Address [address] [place] [address] Care Team Providers Care 4 H Youth Development Specialist Name Role Phone Kamran Singh MD Primary Care Provider [phone] Encounter Details Date Type Department Care Team (Late st Contact Info) Description 01/04/2025 Orders Only External Location [address] [place] [address] Provider, External Social History Tobacco Use Types [...] PM EST Appointment Cardiac Imaging [address] [place] [address] 07/20/2026 1:40 PM EST Office Visit [place] [facility] [address], [address] [address] Phillip Clark MD [address] [place] [address] documented as of this encounter Procedures Procedure [...] on filedocumented in this encounter Care Teams 4 H Youth Development Specialist Relationship Specialty [place] [id number] PCP - General 02/28/25 documented as of this encounter
--- OUTSIDE RECORDS SUMMARY | 2025-08-02 07:15 | XMS_ITS | Encounter Summary ---
Author Organization [facility] Address [address] [place] [id number] Care Team Providers Care Lumber Planer Name Role Phone Kamran Singh MD Primary Care Provider [phone] Encounter Details Date Type Department Care Team [...] in a intermediate (including now)? No 06/15/2025 [facility] Utilities Answer Date Recorded In [...] Appointment Cardiac Imaging [address] [place] [address] 07/20/2026 1:40 PM EST Office Visit [place] [facility] [address], [address] [place] [address] Phillip Clark MD [address] [address] documented as of this encounter Visit Diagnoses Not on filedocumented in this encounter Additional Health Concerns Assessment Noted Time A fall risk assessment has been complete d for the patient 06/09/2025 12:15 PM EDT A Body Mass Index follow-up plan has been documented for the patient 06/20/2025 10:30 AM EDT documented as of this encounter Care Teams Lumber Planer Relationship Specialty Start Date End Date Kamran Singh MD [id number] PCP - General 02/28/25 documented as of this encounter
--- OUTSIDE RECORDS SUMMARY | 2025-08-02 07:15 | XMS_ITS | Encounter Summary ---
Author Organization [facility] Address [address] [place] [address] Care Team Providers Care Telehealth Nurse Name Role Phone Kamran Singh MD Primary Care Provider [phone] Encounter Details Date Type Department Care Team (Late st Contact Info) Description 01/28/2025 Orders Only External Location [address] [place] [address] Provider, External Social History Tobacco Use Types [...] PM EST Appointment Cardiac Imaging [address] [place] [address] 07/20/2026 1:40 PM EST Office Visit [place] [facility] [address], [address] [address] Phillip Clark MD [address] [place] [address] documented as of this encounter Procedures Procedure [...] on filedocumented in this encounter Care Teams Telehealth Nurse Relationship Specialty Start Date End Date Kamran Singh MD [id number] PCP - General 02/28/25 documented as of this encounter
--- OUTSIDE RECORDS SUMMARY | 2025-08-02 07:15 | XMS_ITS | Encounter Summary ---
Author Organization [facility] Address [address] [place] [id number] Care Team Providers Care Motion Picture Camera Operator Name Role Phone Kamran Singh MD Primary Care Provider [phone] Encounter Details Date Type Department Care Team [...] health care facility (including now)? No 06/15/2025 [facility] Utilities Answer Date Recorded In [...] PM EST Appointment Cardiac Imaging [address] [place] [address] 07/20/2026 1:40 PM EST Office Visit [place] [facility] [address], [address] [place] [address] Phillip Clark MD [address] [address] documented as of this encounter Visit Diagnoses Not on filedocumented in this encounter Additional Health Concerns Assessment Noted Time A fall risk assessment has been complete d for the patient 06/09/2025 12:15 PM EDT A Body Mass Index follow-up plan has been documented for the patient 07/10/2025 11:44 AM EST documented as of this encounter Care Teams Motion Picture Camera Operator Relationship Specialty Start Date End Date Kamran Singh MD [id number] PCP - General 02/28/25 documented as of this encounter
--- OUTSIDE RECORDS SUMMARY | 2025-08-02 07:16 | XMS_ITS | Encounter Summary ---
Author Organization [facility] Address [address] [place] [id number] Care Team Providers Care Credit Rating Checker Name Role Phone Kamran Singh MD Primary Care Provider [phone] Encounter Details Date Type Department Care Team [...] a senior care (including now)? No 06/15/2025 [facility] Utilities Answer Date Recorded In [...] PM EST Appointment Cardiac Imaging [address] [place] [address] 07/20/2026 1:40 PM EST Office Visit [place] [facility] [address], [address] [place] [address] Phillip Clark MD [address] [place] [address] documented as of this encounter Visit Diagnoses Not on filedocumented in this encounter Additional Health Concerns Assessment Noted Time A fall risk assessment has been complete d for the patient 06/09/2025 12:15 PM EDT A Body Mass Index follow-up plan has been documented for the patient 06/20/2025 10:30 AM EDT documented as of this encounter Care Teams Credit Rating Checker Relationship Specialty [place] [id number] PCP - General 02/28/25 documented as of this encounter
--- OUTSIDE RECORDS SUMMARY | 2025-08-02 07:16 | XMS_ITS | Encounter Summary ---
Author Organization [facility] Address [address] [place] [id number] Care Team Providers Care Promotions Assistant Name Role Phone Kamran Singh MD Primary Care Provider [phone] Encounter Details Date Type Department Care Team [...] in a retirement (including now)? No 06/15/2025 [facility] [...] PM EST Appointment Cardiac Imaging [address] [place] [address] 07/20/2026 1:40 PM EST Office Visit [place] [facility] [address], [address] [place] [address] Phillip Clark MD [address] [place] [address] documented as of this encounter Visit Diagnoses Not on filedocumented in this encounter Additional Health Concerns Assessment Noted Time A fall risk assessment has been complete d for the patient 06/09/2025 12:15 PM EDT A Body Mass Index follow-up plan has been documented for the patient 06/20/2025 10:30 AM EDT documented as of this encounter Care Teams Promotions Assistant Relationship Specialty [place] [id number] PCP - General 02/28/25 documented as of this encounter
--- OUTSIDE RECORDS SUMMARY | 2025-08-02 07:16 | XMS_ITS | Encounter Summary ---
Author Organization [facility] Address [address] [place] [address] Care Team Providers Care Specification Writer Name Role Phone Kamran Singh MD Primary Care Provider [phone] Encounter Details Date Type Department Care Team [...] PM EST Appointment Cardiac Imaging [address] [place] [address] 07/20/2026 1:40 PM EST Office Visit [place] [facility] [address], [address] [place] [address] Phillip Clark MD [address] [place] [address] documented as of this encounter Visit Diagnoses Not on filedocumented in this encounter Additional Health Concerns Assessment Noted Time A fall risk assessment has been complete d for the patient 06/09/2025 12:15 PM EDT A Body Mass Index follow-up plan has been documented for the patient 06/09/2025 2:00 PM EDT documented as of this encounter Care Teams Specification Writer Relationship Specialty [place] [id number] PCP - General 02/28/25 documented as of this encounter
--- OUTSIDE RECORDS SUMMARY | 2025-08-02 07:16 | XMS_ITS | Encounter Summary ---
Author Organization [facility] Address [address] [place] [address] Care Team Providers Care Performance Improvement Consultant Name Role Phone Kamran Singh MD Primary Care Provider [phone] Encounter Details Date Type Department Care Team [...] PM EST Appointment Cardiac Imaging [address] [place] [address] 07/20/2026 1:40 PM EST Office Visit [place] [facility] [address], [address] [place] [address] Phillip Clark MD [address] [place] [address] documented as of this encounter Visit Diagnoses Not on filedocumented in this encounter Additional Health Concerns Assessment Noted Time A fall risk assessment has been complete d for the patient 05/05/2025 9:58 AM EDT A Body Mass Index follow-up plan has been documented for the patient 05/05/2025 10:51 AM EDT documented as of this encounter Care Teams Performance Improvement Consultant Relationship Specialty [place] [id number] PCP - General 02/28/25 documented as of this encounter
--- OUTSIDE RECORDS SUMMARY | 2025-08-02 07:16 | XMS_ITS | Encounter Summary ---
Author Organization [facility] Address [address] [place] [id number] Care Team Providers Care Blast Furnace Helper Name Role Phone Kamran Singh MD Primary Care Provider [phone] Encounter Details Date Type Department Care Team [...] a skilled nursing (including now)? No 06/15/2025 [facility] Utilities Answer Date Recorded In the [...] PM EST Appointment Cardiac Imaging [address] [place] [address] 07/20/2026 1:40 PM EST Office Visit [place] [facility] [address], [address] [place] [address] Phillip Clark MD [address] [place] [address] documented as of this encounter Visit Diagnoses Not on filedocumented in this encounter Additional Health Concerns Assessment Noted Time A fall risk assessment has been complete d for the patient 06/09/2025 12:15 PM EDT A Body Mass Index follow-up plan has been documented for the patient 06/20/2025 10:30 AM EDT documented as of this encounter Care Teams Blast Furnace Helper Relationship Specialty [place] [id number] PCP - General 02/28/25 documented as of this encounter
--- OUTSIDE RECORDS SUMMARY | 2025-08-02 07:16 | XMS_ITS | Encounter Summary ---
Author Organization [facility] Address [address] [place] [id number] Care Team Providers Care Diesel Motor Mechanic Name Role Phone Kamran Singh MD Primary Care Provider [phone] Encounter Details Date Type Department Care Team [...] in a assisted (including now)? No 06/15/2025 [facility] Utilities Answer Date Recorded In the [...] PM EST Appointment Cardiac Imaging [address] [place] [address] 07/20/2026 1:40 PM EST Office Visit [place] [facility] [address], [address] [place] [address] Phillip Clark MD [address] [address] documented as of this encounter Visit Diagnoses Not on filedocumented in this encounter Additional Health Concerns Assessment Noted Time A fall risk assessment has been complete d for the patient 06/09/2025 12:15 PM EDT A Body Mass Index follow-up plan has been documented for the patient 06/20/2025 10:30 AM EDT documented as of this encounter Care Teams Diesel Motor Mechanic Relationship Specialty Start Date End Date Kamran Singh MD [phone] PCP - General 02/28/25 documented as of this encounter
--- OUTSIDE RECORDS SUMMARY | 2025-08-02 07:17 | XMS_ITS | Encounter Summary ---
Author Organization [facility] Address [address] [place] [id number] Care Team Providers Care Brand Executive Name Role Phone Kamran Singh MD Primary Care Provider [phone] Encounter Details Date Type Department Care Team [...] were you homeless or living in a care home (including now)? No 06/15/2025 [facility] [...] PM EST Appointment Cardiac Imaging [address] [place] [address] 07/20/2026 1:40 PM EST Office Visit [place] [facility] [address], [address] [place] [address] Phillip Clark MD [address] [address] documented as of this encounter Visit Diagnoses Not on filedocumented in this encounter Additional Health Concerns Assessment Noted Time A fall risk assessment has been complete d for the patient 06/09/2025 12:15 PM EDT A Body Mass Index follow-up plan has been documented for the patient 06/20/2025 10:30 AM EDT documented as of this encounter Care Teams Brand Executive Relationship Specialty Start Date End Date Kamran Singh MD [id number] PCP - General 02/28/25 documented as of this encounter
--- OUTSIDE RECORDS SUMMARY | 2025-08-02 07:17 | XMS_ITS | Encounter Summary ---
Author Organization [facility] Address [address] [place] [id number] Care Team Providers Care Dairy Nutrition Consultant Name Role Phone Kamran Singh MD Primary Care Provider [phone] Encounter Details Date Type Department Care Team [...] in a fpc (including now)? No 06/15/2025 [facility] Utilities Answer Date Recorded In the [...] PM EST Appointment Cardiac Imaging [address] [place] [facility] [address] 07/20/2026 1:40 PM EST Office Visit [place] [facility] [address], [address] [place] [id number] Phillip Clark MD [address] [place] [address] documented as of this encounter Visit Diagnoses Not on filedocumented in this encounter Additional Health Concerns Assessment Noted Time A fall risk assessment has been complete d for the patient 06/09/2025 12:15 PM EDT A Body Mass Index follow-up plan has been documented for the patient 06/20/2025 10:30 AM EDT documented as of this encounter Care Teams Dairy Nutrition Consultant Relationship Specialty [place] [id number] PCP - General 02/28/25 documented as of this encounter
--- OUTSIDE RECORDS SUMMARY | 2025-08-02 07:17 | XMS_ITS | Encounter Summary ---
Author Organization [facility] Address [address] [place] [id number] Care Team Providers Care Risk Assessment Analyst Name Role Phone Kamarn Singh MD Primary Care Provider [phone] Encounter Details Date Type Department Care Team [...] in a retirement (including now)? No 06/15/2025 [facility] Utilities Answer Date Recorded In the [...] PM EST Appointment Cardiac Imaging [address] [place] [address] 07/20/2026 1:40 PM EST Office Visit [facility] [address], [address] [place] [address] Phillip Clark MD [address] [address] documented as of this encounter Visit Diagnoses Not on filedocumented in this encounter Additional Health Concerns Assessment Noted Time A fall risk assessment has been complete d for the patient 06/09/2025 12:15 PM EDT A Body Mass Index follow-up plan has been documented for the patient 06/20/2025 10:30 AM EDT documented as of this encounter Care Teams Risk Assessment Analyst Relationship Specialty Start Date End Date Kamran Singh MD [id number] PCP - General 02/28/25 documented as of this encounter
--- OUTSIDE RECORDS SUMMARY | 2025-08-02 07:18 | XMS_ITS | Encounter Summary ---
Author Organization [facility] Address [address] [place] [id number] Care Team Providers Care Purchasing Manager/Sales Name Role Phone Kamran Singh MD Primary Care Provider [phone] Encounter Details Date Type Department Care Team [...] in a fdc (including now)? No 06/15/2025 [facility] Utilities Answer Date Recorded In the [...] PM EST Appointment Cardiac Imaging [address] [place] [address] 07/20/2026 1:40 PM EST Office Visit [place] [facility] [address], [address] [place] [address] Phillip Clark MD [address] [address] documented as of this encounter Visit Diagnoses Not on filedocumented in this encounter Additional Health Concerns Assessment Noted Time A fall risk assessment has been complete d for the patient 06/09/2025 12:15 PM EDT A Body Mass Index follow-up plan has been documented for the patient 06/20/2025 10:30 AM EDT documented as of this encounter Care Teams Purchasing Manager/Sales Relationship Specialty Start Date End Date Kamran Singh MD [id number] PCP - General 02/28/25 documented as of this encounter
--- OUTSIDE RECORDS SUMMARY | 2025-08-02 07:18 | XMS_ITS | Clinical Summary ---
Author Organization [facility] Address [address] [place] [id number] Care Team Providers Care Sewage Reticulation Drafting Officer Name Role Phone Kamran Singh MD Primary Care Provider [phone] Allergies Active Allergy Reactions Criticality Noted Date [...] Description 07/07/2025 2:40 PM EST Office Visit [facility] Cardiothoracic [address], [address] [place] [address] Phillip Clark MD Ascending aortic aneurysm, unspecified whether ruptured (CMS/HCC) (Primary Dx) 07/07/2025 1:39 PM EST - 07/07/2025 11:59 PM EST Hospital Encounter [facility] Radiology [address], [address] [place] [address] Ascending aortic aneurysm, unspecified whether ruptured (CMS/HCC) Discharge Disposition: Home or Self Care 07/07/2025 Travel 07/04/2025 Travel 06/30/2025 Travel 06/20/2025 Travel 06/19/2025 Travel 06/18/2025 Travel 06/17/2025 Travel 06/16/2025 Travel 06/15/2025 Travel 06/14/2025 7:45 AM EDT - 06/14/2025 8:15 PM EDT Surgery [facility] [address] [place] [address] Phillip Clark MD Aortic valve replacement [36569 (CPT )] 06/14/2025 7:45 AM EDT Anesthesia Event [facility] [address] [place] [id number] Jean Claude Staley MD Burns, Jonathon R, DO 06/14/2025 5:18 AM EDT - 06/20/2025 2:25 PM EDT Hospital Encounter [facility] Inpatient [address] [place] [address] Phillip Clark MD Other secondary hypertension (Primary Dx); Severe aortic regurgitation; S/P AVR Discharge Disposition: Home or Self Care 06/14/2025 Travel 06/09/2025 1:42 PM EDT - 06/09/2025 11:59 PM EDT Hospital Encounter [facility] Radiology [address], [address] [place] [address] Severe aortic regurgitation Discharge Disposition: Home or Self Care 06/09/2025 12:20 PM EDT Office Visit [facility] Cardiothoracic [address], [address] [place] [address] Phillip Clark MD Severe aortic regurgitation (Primary Dx) 06/09/2025 Travel 06/07/2025 8:30 AM EDT Pre-Admission Testing [facility] Pre-op Clinic [address], [address] [place] [address] 06/07/2025 Travel 06/02/2025 Travel 05/05/2025 10:20 AM EDT Office Visit [facility] Cardiothoracic [address], [address] [place] [address] Phillip Clark MD Severe aortic regurgitation (Primary [...] in a fpc (including now)? No 06/15/2025 [facility] Utilities Answer Date Recorded In the past 12 months has th e [employer], gas, oil, or water [employer] threatened to shut off services in your [...] PM EST Appointment Cardiac Imaging [address] [place] [address] 07/20/2026 1:40 PM EST Office Visit [facility] Cardi[facility] [address], [address] [place] [address] Phillip Clark MD [address] [place] [address] Health Maintenance Due Date Last Done Comments [...] - Risk 60-74 years 1-dose series) 2015 [id number] Vaccine ( season) 2025 06/22/2022, 01/19/2022, 07/12/2021, [...] this topic Medical Devices Implanted Type Area Carpentry Teacher Device Identifier Shelf Expiration Date Model / Serial / Lot Graft Ptch 6x6in [id number] [place] - [id number] Implanted:Qty: 1 on 06/14/2025 by Phillip Clark MD at [facility] N/A: Heart [employer] Peripherial V[employer]-[id number] / / Valve Atrial 25mm Rotatabl Cuf Std Ptfe - [id number] - [id number] Implanted:Qty: 1 on 06/14/2025 by Phillip Clark MD at [facility] N/A: Heart [id number] 03/28/2030 [id number] / [id number] / [id number] Procedures Procedure Name Priority Date/Time Associated Diagnosis [...] PROCEDURE PLACEHOLDER Routine 06/14/2025 8:08 AM EDT LA -AORT GRF W/CARD BYP [...] LAB COAGULATION METHOD 07/07/2025 3:17 PM EST [facility] INR 1.7(H) 0.9 - 1.1 LAB COAGULATION METHOD 07/07/2025 3:17 PM EST [facility] Blood Venous blood specimen / Unknown Venipuncture / Unknown 07/07/2025 1:35 PM EST 07/07/2025 1:35 PM EST Narrative [facility] - 07/07/2025 3:17 PM [...] R esult [facility] [address] [place] [address] * (ABNORMAL) CBC W/O Differential (07/07/2025 1:35 PM EST) Only the most recent of10 resultswithin the time period is included. WBC Count 6.93 3.70 - 10.30 10*3/uL LAB HEMATOLOGY METHOD 07/07/2025 2:47 PM EST [facility] RBC Count 4.43(L) 4.60 - 6.10 10*6/uL LAB HEMATOLOGY METHOD 07/07/2025 2:47 PM EST [facility] HGB 12.1(L) 13.7 - 17.5 g/dL LAB HEMATOLOGY METHOD 07/07/2025 2:47 PM EST [facility] HCT 38.1(L) 40.0 - 51.0 % LAB HEMATOLOGY METHOD 07/07/2025 2:47 PM EST [facility] Platelet Count 391(H) 155 - 369 10*3/uL LAB HEMATOLOGY METHOD 07/07/2025 2:47 PM EST [facility] MCV 86 79 - 98 fL LAB HEMATOLOGY METHOD 07/07/2025 2:47 PM EST [facility] MCH 27.3 26.0 - 32.0 pg LAB HEMATOLOGY METHOD 07/07/2025 2:47 PM EST [facility] MCHC 31.8 30.7 - 35.5 g/dL LAB HEMATOLOGY METHOD 07/07/2025 2:47 PM EST [facility] RDW 15.2(H) 11.5 - 14.5 % LAB HEMATOLOGY METHOD 07/07/2025 2:47 PM EST [facility] MPV 9.1 8.8 - 12.5 fL LAB HEMATOLOGY METHOD 07/07/2025 2:47 PM EST [facility] nRBC 0.0 <=0.0 per 100 WBCs LAB HEMATOLOGY METHOD 07/07/2025 2:47 PM EST [facility] Blood Venous blood specimen / Unknown Venipuncture / Unknown 07/07/2025 1:35 PM EST 07/07/2025 1:35 PM EST us Phillip Clark MD LAB BLOOD ORDERABLES Final R esult [facility] [address] [place] [address] * Basic Metabolic Panel, Plasma (07/07/2025 1:35 PM EST) Only the most recent of10 resultswithin the time period is included. Glucose, Plasma 87 74 - 99 mg/dL 07/07/2025 3:00 PM EST [facility] BUN, Plasma 21 8 - 23 mg/dL 07/07/2025 3:00 PM EST [facility] Creatinine, Plasma 0.99 0.70 - 1.20 mg/dL 07/07/2025 3:00 PM EST [facility] BUN/Creatinine Ratio 21 07/07/2025 3:00 PM EST [facility] Sodium, Plasma 136 136 - 145 mmol/L 07/07/2025 3:00 PM EST [facility] Potassium, Plasma 4.7 3.6 - 4.9 mmol/L 07/07/2025 3:00 PM EST [facility] Chloride, Plasma 99 97 - 107 mmol/L 07/07/2025 3:00 PM EST [facility] CO2, Plasma 26 22 - 29 mmol/L 07/07/2025 3:00 PM EST [facility] Anion Gap 11 6 - 16 mmol/L 07/07/2025 3:00 PM EST [facility] Total Calcium, Plasma 9.4 8.9 - 10.2 mg/dL 07/07/2025 3:00 PM EST [facility] eGFRcr 82.5 mL/min/1.7 3m*2 07/07/2025 3:00 PM EST [facility] Comment:Reported eGFRcr in m L/min/1.73m2 is based the CKD-EPI 2020 equation that does not use a race coefficient. Blood Venous blood specimen / Unknown Venipuncture / Unknown 07/07/2025 1:35 PM EST 07/07/2025 1:35 PM EST Phillip Clark MD LAB BLOOD ORDERABLES Final R esult Performing Organization Address City/[facility]/ZIP Co de Phone Number [facility] [address] [place] [address] * Phosphorus (06/20/2025 1:52 AM EDT) Only the most recent of8 resultswithin the time period is included. Phosphorus, Plasma 2.8 2.5 - 4.5 mg/dL 06/20/2025 2:23 AM EDT [facility] Blood Venous blood specimen / Unknown Venipuncture / Unknown 06/20/2025 1:52 AM EDT 06/20/2025 1:59 AM EDT Phillip Clark MD LAB BLOOD ORDERABLES Final R esult Performing Organization Address City/[facility] Co de Phone Number [facility] [address] [place] [address] * Magnesium (06/20/2025 1:52 AM EDT) Only the most recent of10 resultswithin the time period is included. Magnesium, Plasma 2.2 1.9 - 2.4 mg/dL 06/20/2025 2:23 AM EDT [facility] Blood Venous blood specimen / Unknown Venipuncture / Unknown 06/20/2025 1:52 AM EDT 06/20/2025 1:59 AM EDT Phillip Clark MD LAB BLOOD ORDERABLES Final R esult Performing Organization Address City/State/[facility] Co de Phone Number [facility] [address] [place] [address] * PERIPHERAL IV (SMARTFORM LINK) (06/20/2025 1:47 [...] QTC Interval 478 ms MUSE ECG P [place] 43 degrees MUSE ECG R [place] -30 degrees MUSE ECG T Wave [place] 36 degrees MUSE ECG Diagnosis Poor data quality, interpretation may be adversely affected MUSE ECG Diagnosis Sinus rhythm with premature supraventricular complexes and with occasional premature ventricular complexes MUSE ECG Diagnosis Left axis deviation MUSE ECG Diagnosis Poor R-wave progression MUSE ECG Diagnosis Abnormal ECG MUSE ECG Diagnosis Recommend repeat ECG MUSE ECG Diagnosis MUSE ECG Diagnosis Confirmed by Aman Coe ([id number]) on 06/19/2025 1:33:10 PM MUSE ECG 06/19/2025 [...] R esult [facility] [address] [place] [address] * LA CRITICAL CARE, E/M 30-74 MINUTES [...] 99 mg/dL 06/16/2025 8:45 AM EDT [facility] Comment:Accuracy of a glucos e result [...] for testing. Comment 06/16/2025 8:45 AM EDT [facility] Under Seal Operator ID Fariba Blanton 025 8:45 AM EDT [facility] Device ID [id number] 06/16/2025 8:45 AM EDT [facility] Specimen Type POC Arterial 06/16/2025 8:45 AM EDT [facility] Blood Arterial blood specimen / Unknown 06/16/2025 8:40 AM EDT 06/16/2025 8:45 AM EDT us Phillip Clark MD LAB POINT OF CARE TE ST DOCKED DEVICE UNSOLICITED RESULTS Final Result [facility] [address] [place] [address] * XR Abdomen 1 View (06/16/2025 1:20 [...] esult [facility] [address] [place] [address] * LA CRITICAL CARE, E/M 30-74 MINUTES [...] 8:47 AM EDT [facility] Blood Venous blood specimen / Unknown Venipuncture / Unknown 06/15/2025 8:18 AM EDT 06/15/2025 8:34 AM EDT Narrative [facility] - 06/15/2025 8:47 AM EDT Therapeutic decision making should be based on absolute values, rather than percentages. us Phillip Clark MD LAB BLOOD ORDERABLES Final R esult Performing Organization Address City/[facility]/ZIP Co de Phone Number [facility] [address] [place] [address] * Ionized calcium, whole blood (06/15/2025 6:40 AM EDT) Ionized Calcium, Whole Blood 4.6 4.6 - 5.1 mg/dL LAB HEMATOLOGY METHOD 06/15/2025 6:50 AM EDT [facility] Blood Arterial blood specimen / Unknown Venipuncture / Unknown 06/15/2025 6:40 AM EDT 06/15/2025 6:48 AM EDT us Phillip Clark MD LAB BLOOD ORDERABLES Final R esult Performing Organization Address City/[facility]/ZIP Co de Phone Number [facility] [address] [place] [address] * LA CRITICAL CARE, ADDL 30 MIN, [...] ORDERABLES Final R esult Performing Organization Address City/[facility]/ZIP Co de Phone Number [facility] [address] [place] [address] * (ABNORMAL) Hemoglobin (06/15/2025 12:20 AM EDT) [...] R esult [facility] [address] [place] [address] * Hematocrit (06/15/2025 12:20 AM EDT) Only [...] ORDERABLES Final R esult Performing Organization Address City/[facility]/ZIP Co de Phone Number [facility] [address] [place] [address] * Potassium, Plasma (06/15/2025 12:20 AM EDT) Only the most recent of3 resultswithin the time period is included. Potassium, Plasma 4.5 3.6 - 4.9 mmol/L 06/15/2025 12:51 AM EDT [facility] Blood Venous blood specimen / Unknown Venipuncture / Unknown 06/15/2025 12:20 AM EDT 06/15/2025 12:26 AM EDT us Phillip Clark MD LAB BLOOD ORDERABLES Final R esult Performing Organization Address City/[facility] Co de Phone Number [facility] [address] [place] [address] * [place] CRITICAL CARE, E/M 30-74 MINUTES [...] oximetry, mixed venous (06/14/2025 3:00 PM EDT) [facility] Signature pH, Mixed Venous 7.28(L) 7.32 [...] Final R esult Performing Organization Address [facility] de Phone Number [facility] [address] [place] [address] * Eli auris Surveillance by PCR (06/14/2025 2:37 PM EDT) Eli auris PCR Result Not Detected Not Detected 06/15/2025 12:46 PM EDT [facility] Swab (Axilla and Groin) Non-blood Collection / Unknown 06/14/2025 2:37 PM EDT 06/14/2025 3:10 PM EDT Narrative [facility] - 06/15/2025 12:46 PM EDT This PCR assay was developed and its performance characteristics determined by [facility] as appropriate for clinical purposes. This assay has not been cleared or approved by the FDA, but is performed in a CLIA regulated laboratory that is qualified to perform high-complexity testing. Phillip Clark MD LAB MICROBIOLOGY - GENERAL O RDERABLES Final Result Performing Organization Address [facility] Co de Phone Number [facility] [address] [place] [address] * Multi Drug Resistance Test (06/14/2025 2:37 PM EDT) Culture No growth at day 1 06/15/2025 4:03 PM EDT [facility] Swab (Nares and Smita Rectal) Non-blood Collection / Unknown 06/14/2025 2:37 PM EDT 06/14/2025 3:10 PM EDT Narrative [facility] - 06/15/2025 4:03 PM EDT This test was developed and its performance characteristics determined by the [facility]. Although the media is FDA-approved, it is not FDA-approved for all specimen types submitted. The FDA has determined that such clearance or approval is not necessary. This test is used for surveillance purposes. It should not be regarded as investigational or for research. The [facility] is certified under the Clinical Laboratory Improvement Amendments of 1988 (CLIA-88) as qualified to perform high complexity clinical laboratory testing. Phillip Clark MD LAB MICROBIOLOGY - GENERAL O RDERABLES Final Result Performing Organization Address [facility] [place] [address] * APTT (06/14/2025 2:36 PM EDT) Only [...] Final R esult Performing Organization Address [facility] [place] [address] * PB POINT OF CARE IMAGING PLACEHOLDER [...] supine Prep: ChloraPrep Patient monitoring: heart rate, environmental monitoring specialist and continuous pulse ox Anesthesia block type: [...] mcg/kg/min) RV: same as baseline Aortic valve: [place] valve replaced by mechanical valve. New valve [...] 7.31 - 7.42 06/14/2025 2:02 PM EDT [facility] pCO2, Arterial 38 32 - 45 mm Hg 06/14/2025 2:02 PM EDT [facility] pO2, Arterial 376 >80 mm Hg 06/14/2025 2:02 PM EDT [facility] SO2, Arterial 100(H) 94 - 98 % 06/14/2025 2:02 PM EDT [facility] Base Excess, Arterial -4.2(L) -2 - 3 mmol/L 06/14/2025 2:02 PM EDT [facility] HCO3, Arterial 21.0(L) 22 - 26 mmol/L 06/14/2025 2:02 PM EDT [facility] Total Hemoglobin, Arterial, Whole Blood 14.5 13.7 - 17.5 g/dL 06/14/2025 2:02 PM [facility] Hematocrit, Arterial 44.0 40 - 51.0 % 06/14/2025 2:02 PM T [facility] Sodium, Arterial 136 136 - 145 mmol/L 06/14/2025 2:02 PM T [facility] Potassium, Arterial 3.4(L) 3.6 - 4.9 mmol/L 06/14/2025 2:02 PM [facility] Chloride, Whole Blood 105 97 - 107 mmol/L 06/14/2025 2:02 PM [facility] Glucose, Arterial 138(H) 74 - 99 mg/dL 06/14/2025 2:02 PM T [facility] Ionized Calcium, Arterial 4.9 4.6 - 5.1 mg/dL 06/14/2025 2:02 PM [facility] Lactate, Arterial 4.2(H) 0.5 - 1.6 mmol/L 06/14/2025 2:02 PM EDT [facility] Body Temperature 37.0 Celsius 06/14/2025 2:02 PM [facility] pH, Temp Corrected, Arterial 7.35 7.31 - 7.42 06/14/2025 2:02 PM [facility] pCO2, Temp Corrected, Arterial 38 32 - 45 mm Hg 06/14/2025 2:02 PM [facility] pO2, Temp Corrected, Arterial 376 >80 mm Hg 06/14/2025 2:02 PM T [facility] Under Seal Operator ID Ricki Zamarripa 06/14/2025 2:02 PM [facility] Blood Whole blood specimen / Unknown 06/14/2025 2:00 PM EDT 06/14/2025 2:02 PM EDT Phillip Clark MD LAB POINT OF CARE TE ST DOCKED DEVICE UNSOLICITED RESULTS Final Result Performing Organization Address [facility] de Phone Number [facility]ALTH[facility]ARE [facility] [address] [place] [address] * POCT ACT (06/14/2025 12:43 PM EDT) Only the most recent of7 resultswithin the time period is included. ACT+ (HIGH RANGE) 98 68 - 600 Seconds 06/14/2025 12:49 PM EDT [facility] Under Seal Operator ID Cresencio, Gene 06/14/2025 12:49 PM EDT [facility] ACT Device ID [id number] 06/14/2025 12:49 PM EDT [facility] Comment 06/14/2025 12:49 PM EDT [facility] Comment: ACT performed by staff at point [...] UNSOLICITED RESULTS Final Result Performing Organization Address City/[facility] de Phone Number [facility]ARE LAB [address] LAB [address] [place] [address] * (ABNORMAL) QPLUS (06/14/2025 11:55 AM EDT) [...] Seconds 06/14/2025 12:12 PM EDT [facility] Under Seal Operator ID Ricki Zamarripa 06/14/2025 12:12 PM EDT [facility] Device ID [id number] 06/14/2025 12:12 PM EDT [facility] Whole Blood 06/14/2025 11:5 5 AM EDT 06/14/2025 12:12 PM EDT Narrative [facility] - 06/14/2025 12:[address]: No Clot Detected us Phillip Clark MD LAB POINT OF CARE TE ST DOCKED DEVICE UNSOLICITED RESULTS Final Result Performing Organization Address City/State/[facility] de Phone Number HEALTHCARE LAB [address] [place] [address] * Surgical Pathology Exam (06/14/2025 10:18 AM EDT) Case Report Surgical Pathology Case: [id number] Authorizing Provider: Phillip Clark MD Collected: 06/14/2025 1018 Ordering Location: [facility] OPERATING ROOM Received: 06/14/2025 1413 Pathologist: Beth [...] size from 2.5-4.0 cm in greatest dimension. Accident Investigator sections are submitted in cassette A1. Cold Time: 3h 55m April Santos 06/15/2025 11:44 AM EDT [facility] Tissue Heart structure / Unknown 06/14/2025 10:18 AM EDT 06/14/2025 2:13 PM EDT Comment:Pre-op diagnosis: Severe aortic regurgitation [I35.1] us Phillip Clark MD LAB PATHOLOGY ORDERABLES Fin al Result [facility] [address] [place] [address] * LA AN CENTRAL LINE DOUBLE LUMEN, [...] ORDERABL ES Final Result Performing Organization Address City/State/[facility] de Phone Number BLOOD BANK [address] [place] [address], * Type & Screen, 30 Days (06/09/2025 [...] ORDERABL ES Final Result Performing Organization Address [facility] Co de Phone Number BLOOD BANK [address] * (ABNORMAL) Hemoglobin A1c (06/09/2025 1:39 PM EDT) Hemoglobin A1c 5.7(H) <5.7 % 06/09/2025 6:09 PM EDT [facility] Blood Venous blood specimen / Unknown Venipuncture / Unknown 06/09/2025 1:39 PM EDT 06/09/2025 1:40 PM EDT Narrative [facility] - 06/09/2025 6:09 PM EDT HA1C Interpretive Data: Diagnosis of Diabetes: Diabetic > or = 6.5% Pre-diabetic 5.7 to 6.4% Non-diabetic < or = 5.6% Glycemic Targets for Type I and Type II Diabetics: Non- Adults <7.0% Adults <6.0% Children and Adolescents <7.5% Source: [place] [employer]. Standards of medical care in diabetes,2017. Diabetes Care.2017:40 (suppl 1):S1-S135. Phillip Clark MD LAB BLOOD ORDERABLES Final R esult Performing Organization Address City/[facility] Co de Phone Number [facility] [address] [place] [address] * Comprehensive Metabolic Panel, Plasma (06/09/2025 1:39 PM EDT) Glucose, Plasma 86 74 - 99 mg/dL 06/09/2025 3:57 PM EDT [facility] BUN, Plasma 15 8 - 23 mg/dL 06/09/2025 3:57 PM EDT [facility] Creatinine, Plasma 0.85 0.70 - 1.20 mg/dL 06/09/2025 3:57 PM EDT [facility] BUN/Creatinine Ratio 18 06/09/2025 3:57 PM EDT [facility] Sodium, Plasma 139 136 - 145 mmol/L 06/09/2025 3:57 PM EDT [facility] Potassium, Plasma 4.7 3.6 - 4.9 mmol/L 06/09/2025 3:57 PM EDT [facility] Chloride, Plasma 107 97 - 107 mmol/L 06/09/2025 3:57 PM EDT [facility] CO2, Plasma 24 22 - 29 mmol/L 06/09/2025 3:57 PM EDT [facility] Anion Gap 8 6 - 16 mmol/L 06/09/2025 3:57 PM EDT [facility] Total Calcium, Plasma 9.0 8.9 - 10.2 mg/dL 06/09/2025 3:57 PM EDT [facility] Total Protein 6.6 6.3 - 7.9 g/dL 06/09/2025 3:57 PM EDT [facility] Albumin, Plasma 4.2 3.5 - 5.2 g/dL 06/09/2025 3:57 PM EDT [facility] AST, Plasma 23 10 - 50 U/L 06/09/2025 3:57 PM EDT [facility] ALT, Plasma 23 10 - 50 U/L 06/09/2025 3:57 PM EDT [facility] Alkaline Phosphatase, Plasma 66 40 - 115 U/L 06/09/2025 3:57 PM EDT [facility] Total Bilirubin, Plasma 0.8 0.2 - 1.1 mg/dL 06/09/2025 3:57 PM EDT [facility] eGFRcr 94.1 mL/min/1.7 3m*2 06/09/2025 3:57 PM EDT [facility] Comment:Reported eGFRcr in m L/min/1.73m2 is based the CKD-EPI 2020 equation that does not use a race coefficient. Blood Venous blood specimen / Unknown Venipuncture / Unknown 06/09/2025 1:39 PM EDT 06/09/2025 1:40 PM EDT us Phillip Clark MD LAB BLOOD ORDERABLES Final R esult [facility] [address] [place] [address] from Last 3 Months Insurance [facility] MEDIC[facility] Advance Directives * Full Code (Latest Code Status on File) Date Activated Date Inactivated Comments 06/14/2025 2:35 PM 06/20/2025 4:27 PM Question Answer Comments I have reviewed the capacity from the link above and, if needed, have updated to appropriate status: Yes Care Teams Sewage Reticulation Drafting Officer Relationship Specialty [place] [id number] PCP - General 02/28/25
--- NOTE | 2025-08-02 07:30 | US_ITS ---
FINAL REPORT TECHNIQUE: Sonographic images of the right upper quadrant were obtained. CLINICAL HISTORY: Elevated LFTs, history of liver cyst seen on CTA FINDINGS: PANCREAS: Head of pancreas normal. Tail obscured. LIVER: Several anechoic lesions are seen, likely cysts. No focal hepatic lesion. No intrahepatic biliary ductal dilatation. GALLBLADDER: No gallstones. No gallbladder wall thickening or pericholecystic fluid. COMMON DUCT: 5 mm. Normal for age. RIGHT KIDNEY: The right kidney measures 9.5 cm. There is no hydronephrosis, mass, or stone. FREE FLUID: None. IMPRESSION: Hepatic cysts, otherwise unremarkable ultrasound of the right upper quadrant. Reviewed, Interpreted and Dictated by Lisy Ash MD Transcribed by Chastity Contreras Authenticated and [facility]
== END 2025-08-02 23:59 | disposition home or self-care (01) ==
LOC: RAD 07:12
PROVIDERS: PCP Family Medicine; Visit Provider Nurse Practitioner Family
DX: K76.89 Other specified diseases of liver (principal); R79.89 Other specified abnormal findings of blood chemistry
CPT/HCPCS: 76705

== ENCOUNTER 2025-08-22 07:55 | Outpatient (CLI) | payer BC, MEDICARE, SELFPAY ==
--- OUTSIDE RECORDS SUMMARY | 2025-07-07 13:39 | XMS_ITS | Encounter Summary ---
Author Organization [facility] Address [address] [place] [address] Care Team Providers Care Surgical Consultant Name Role Phone Kamran Singh MD Primary Care Provider [phone] Encounter Details Date Type Department Care Team (Latest Contact Info) Description 07/07/2025 1:39 PM EST - 07/07/2025 11:59 PM EST [facility] Encounter [facility] [address], [address] [place] [address] Ascending aortic aneurysm, unspecified whether ruptured (CMS/[facility]) Discharge Disposition: Home or Self Care Social [...] the past 12 m [facility], were you homeless or living in a retirement (including now)? No 06/15/2025 [facility] Utilities Answer Date Recorded In the [...] by mouth daily. 30 tablet 2 06/20/2025 furosemide (Lasix) 40 MG tablet Take 1 [...] times a day. 60 tablet 2 06/20/2025 omeprazole (PriLOSEC) [address] capsule [...] by mouth daily. 30 tablet 06/20/2025 5 documented as of this encounter Plan of Treatment Upcoming Encounters Date Type Department Care Team (Late st Contact Info) Description 07/20/2026 12:00 PM EST Appointment Cardiac Imaging [address] [place] [address] 07/20/2026 1:40 PM EST Office Visit [facility] [address], [facility] [address] [place] [address] Phillip Clark MD [address] [place] [address] documented as of this encounter Procedures Procedure Name Priority Date/Time Associated Diagnosis Comments XR CHEST 2 VIEWS Routine 07/07/2025 1:44 PM EST Ascending aortic aneurysm, unspecified whether ruptured (CMS/HCC) documented in this encounter Results * XR Chest 2 Views (07/07/2025 1:44 PM EST) Anatomical Region Laterality Modality Chest Digital Radiogra phy Impressions 07/07/2025 1:53 PM EST Small pleural effusions, decreased from comparison. CRITICAL RESULT: No. COMMUNICATION: Per this written report. Drafted by Gia Salmon MD on 07/07/2025 1:52 PM Final report signed by Gia Salmon MD on 07/07/2025 1:53 PM Narrative 07/07/2025 1:53 PM EST CLINICAL INDICATION: Ascending aortic aneurysm TECHNIQUE: XR CHEST 2 VIEWS COMPARISON: June 20, 2025 FINDINGS: Small pleural effusions, decreased from comparison. No airspace opacities or consolidation. No pneumothorax. Stable cardiac silhouette post sternotomy no bowel replacement. Unremarkable osseous structures. Procedure Note Gia Salmon MD - 07/07/2025 CLINICAL INDICATION: Ascending aortic aneurysm TECHNIQUE: XR CHEST 2 VIEWS COMPARISON: June 20, 2025 FINDINGS: Small pleural effusions, decreased from comparison. No airspace opacitiesor consolidation. No pneumothorax. Stable cardiac silhouette poststernotomy no bowel replacement. Unremarkable osseous structures. IMPRESSION: Small pleural effusions, decreased from comparison. CRITICAL RESULT: No. COMMUNICATION: Per this written report. Drafted by Gia Salmon MD on 07/07/2025 1:52 PM Final report signed by Gia Salmon MD on 07/07/2025 1:53 PM Phillip lCark MD IMG XR PROCEDURES Final Resu lt documented in this encounter Visit Diagnoses Diagnosis Ascending aortic aneurysm, unspecified whether ruptured (CMS/HCC) documented in this encounter Additional Health Concerns Assessment Noted Time A fall risk assessment has been complete d for the patient 06/09/2025 12:15 PM EDT A Body Mass Index follow-up plan has been documented for the patient 07/10/2025 11:44 AM EST documented as of this encounter Care Teams Surgical Consultant Relationship Specialty Start Date End Date Kamran Singh MD [id number] PCP - General 02/28/25 documented as of this encounter
--- OUTSIDE RECORDS SUMMARY | 2025-07-07 14:40 | XMS_ITS | Encounter Summary ---
Author Organization [facility] Address [address] [place] [id number] Care Team Providers Care X Ray Technician Name Role Phone Kamran Singh MD Primary Care Provider [phone] Reason for Referral * Imaging (Routine) - Pending Review Specialty Diagnoses / Procedures Referred By Nathalia t Referred To Contact Cardiology Diagnoses Ascending aortic aneurysm, unspecified whether ruptured (CMS/HCC) Procedures Echo, Adult Transthoracic Complete Phillip Clark MD [address] [address] Phone: tel: fax: Referral ID Status Reason Start Date Expiration Date Visits Requested Visits Authorized [id number] Pending Review Perform Procedure 07/07/2025 01/06/2027 1 1 Encounter Details Date Type Department Care Team (Late st Contact Info) Description 07/07/2025 2:40 PM EST Office Visit [place] [facility] [address], [address] [address] Phillip Clark MD [address] [address] Ascending aortic aneurysm, unspecified whether ruptured (CMS/HCC) (Primary Dx) Social History Tobacco Use Types [...] were you homeless or living in a prison (including now)? No 06/15/[address] [facility] Utilities Answer Date Recorded In the past 12 months has th e electric, gas, oil, or water [employer]ognition [employer] threatened to shut off services in your home? No 06/15/2025 Sex and Gender Information Value Date Recorded Sex Assigned at Not on file Legal Sex Male 7:47 PM EDT Gender Identity Not on file Sexual Orientation Not on file documented as of this encounter Last Filed Vital Signs Vital Sign Reading Time Taken Comments Blood Pressure 127/68 07/07/2025 2:32 PM EST sta nding Pulse 86 07/07/2025 2:32 PM EST Temperature - - Respiratory Rate - - Oxygen Saturation 99% 07/07/2025 2:21 PM EST Inhaled Oxygen Concentration - - Weight 83.9 kg (184 lb 15.5 oz) 07/07/2025 2:21 PM EST Height - - Body Mass Index 28.97 06/14/2025 6:20 AM EDT documented in this encounter Miscellaneous Notes * Progress Notes - Magdaleno Calixto MD - 07/07/2025 2:40 PM EST Reason for visit / Chief Complaint: postop follow-up History of present illness: Bradley Forrest is a 69 y.o. male who underwent mechanical aortic valve replacement with a 25mm [employer] prosthesis for severe aortic regurgitation on 06/14/25 and returns for followup. Immediate postop course was unremarkable and he was discharge home on POD6. Reports interval development of shortnessof breath starting about 1wk after discharge. Underwent TTE on 06/29 which showed moderate pericardial effusion. He was started on lasix and had repeat limited TTE on 07/05 which showed a reduced now small pericardial effusion. Reports this has coincided with improved shortness of breath. Continues to follow with coumadin clinic, most recent INR was 2.1, dose increased and followup arranged. Active Problems: Patient Active Problem List Diagnosis Date Noted Left ventricular enlargement 06/17/2025 Hypocalcemia 06/17/2025 Acute blood loss anemia 06/17/2025 Hypoalbuminemia 06/17/2025 Pre-diabetes 06/17/2025 Other secondary hypertension 06/15/2025 Benign prostatic hyperplasia 05/05/2025 CAD (coronary artery disease) 04/14/2025 History of coronary angioplasty with insertion of stent 04/14/2025 High cholesterol 12/23/2019 Hypertension 12/23/2019 Medical History: [...] as needed for pain, headaches or fever. 06/20/25 Yes Angie Abarca APRN clopidogrel (Plavix) 75 MG tablet Take 1 tablet by mouth daily. 06/20/25 07/20/25 Yes Jeffry Abarca APRN empagliflozin (Jardiance) 10 MG Take 1 tablet by mouth daily. 06/20/25 09/18/25 Yes Angie Abarca APRN ezetimibe (Zetia) 10 MG tablet Take 1 tablet by mouth daily. 06/20/25 09/18/25 Yes Angie Abarca APRN furosemide (Lasix) 40 MG tablet Take 1 tablet by mouth daily. Take Lasix (furosemide) 40mg once daily for 3 days only; to be taken with potassium 20mEq once daily for 3 days only. 06/20/25 Yes Angie Abarca APRN losartan (Cozaar) 50 MG tablet Take 0.5 tablets by mouth 2 times a day. 06/20/25 12/17/25 Yes Angie Abarca APRN metoprolol tartrate (Lopressor) 50 MG tablet Take 1 tablet by mouth 2 times a day. 06/20/25 09/18/25Yes Angie Abarca APRN omeprazole (PriLOSEC) [address] capsule Take 1 capsule by mouth daily as needed. Do not crush or chew. Yes Provider, Historical oxyCODONE (Roxicodone) 5 MG immediate release tablet Take 1 tablet by mouth every 4 hours as neededfor moderate pain. 06/20/25 Yes Angie Abarca APRN Repatha SureClick 140 MG/ML solution auto-injector autoinjector Inject 1 mL under the skin every 14days. 02/26/25 Yes Provider, Historical spironolactone (Aldactone) 25 MG tablet Take 1 tablet by mouth daily. holding 06/20/25 Yes Angie Abarca APRN warfarin (Coumadin) 2 MG tablet Take 2 tablets by mouth daily. 4mg daily until you get your INR drawn on Jun 22, then as directed. 06/20/25 Yes Angie Abarca APRN docusate sodium (Colace) 100 MG capsule Take 1 capsule by mouth 2 times a day for 10 days. Hold forloose stool Patient not taking: Reported on 07/07/2025 06/20/25 06/30/25 Angie Abarca APRN methocarbamol (Robaxin) 500 MG tablet Take 1 tablet by mouth 4 times a day as needed for muscle spasms. Patient not taking: Reported on 07/07/2025 06/20/25 Angie Abarca APRN rosuvastatin (Crestor) 40 MG tablet Take 1 tablet by mouth daily. Patient not taking: Reported on 07/07/2025 06/20/25 09/18/25 Angie Abarca APRN senna (Senokot) 8.6 MG tablet Take 2 tablets by mouth nightly for 10 days. Hold for loose stools Patient not taking: Reported on 07/07/2025 06/20/25 06/30/25 Angie Abarca APRN naloxone (Narcan) 4 mg/0.1 mL nasal spray 1. Give 1 spray in nostril for no/slow breathing or cannot wake after opioid use 2. Call 911 3. Repeat in other nostril if symptoms continue Patient not takin. Give 1 spray in nostril for no/slow breathing or cannot wake after opioid use 2. Call 911 3. Repeat in other nostril if symptoms continue Reported on 07/07/2025 06/20/25 07/07/25Angie Abarca APRN Physical exam: Visit Vitals BP 127/68 Comment: standing Pulse 86 SpO2 99% Constitutional: well developed, well nourished, and in no acute distress Respiratory: Normal expansion. Clear to auscultation. No rales, rhonchi, or wheezing. Cardiac: Heart regular rate and rhythm Heart sounds: Prosthetic heart sounds- aortic/right second ICS Abdomen: Soft, non-tender, normal bowel sounds; no bruits, organomegaly or masses. Musculoskeletal: normal strength, tone, and muscle mass, no deformities Psychiatric: oriented to time, place and person, mood and affect are within normal limits Neurologic: normal sensation and reflexes and motor intact Skin: [place], warm, well perfused Incision clean and healing well. Labs in last 18 hours: CBC WBC 6.93 Hb 12.1 (L) Plt 391 (H) Hct 38.1 (L) ANC ?? INR 1.7 (H), PTT ??, Anti-Xa ?? BMP Na 136 Cl 99 BUN 21 Glu 87 K 4.7 Co2 26 Cr 0.99 Ca 9.4 iCa ?? Mg ??, Phos ?? Lactate ?? LFT AST ?? AlkPhos ?? T Prot ?? ALK ?? Bili ?? Alb ?? D.Bili ?? Imaging: TTE 07/01/2025 - pk/mean AV 15/7, LVEF 45%, moderate pericardial effusion Limited TTE 07/05/25 - decreased pericardial effusion, now small Impression: 69 year old male status post mAVR on 06/14/25. Had pericardial effusion with associatedshortness of breath that is now improved. Doing well overall. Has already reestablished care with judicial reporter. Planning to start cardiac rehab in next few weeks. Plan: -return to clinic with repeat TTE in 1yr Addendum: INR resulted 1.7 today after clinic. Telephoned patient and instructed to increase warfarin to 6mg today and tomorrow then alternate 4mg and 6mg daily and followup with coumadin clinic. [1] Past Medical History: Diagnosis Date Cardiac murmur Hyperlipidemia Hypertension Pre-diabetes 06/17/2025 [2] Past Surgical History: Procedure Laterality Date AORTIC VALVE REPLACEMENT 06/14/2025 Median sternotomy, aortic valve replacement using a 25 mm [place] mechanical prosthesis. (Dr. Phillip Clark) COLONOSCOPY CORONARY STENT PLACEMENT KNEE SURGERY Right OTHER SURGICAL HISTORY N/A Knee arthroscopy from [employer] SHOULDER SURGERY Right [3] Allergies Allergen Reactions Seafood Hives Lisinopril Cough Cosigned by Phillip Clark MD at 07/10/2025 11:44 AM EST Associated attestation - Phillip Clark MD - 07/10/2025 11:44 AM EST I saw and evaluated the patient with the resident/fellow. I discussed the case with the resident/fellow and agree with the findings and plan as documented. documented in this encounter Plan of Treatment Upcoming Encounters Date Type Department Care Team (Late st Contact Info) Description 07/20/2026 12:00 PM EST Appointment Cardiac Imaging [address] [place] [address] 07/20/2026 1:40 PM EST Office Visit [place] [facility] [address], [address] [place] [address] Phillip Clark MD [address] [place] [address] Scheduled Orders Name Type Priority Associated Diagnoses Orde r Schedule ECG Adult ECG Routine Ascending aortic aneurysm, unspecified whether ruptured (CMS/HCC) Expected: 07/07/2025, Expires: 01/05/2027 Echo, Adult Transthoracic Complete Echocardiography Routine Ascending aortic aneurysm, unspecified whether ruptured (CMS/HCC) Expected: 07/07/2026 (Approximate), Expires: 01/08/2027 documented as of this encounter Results * [...] Salmon MD on 07/07/2025 1:53 PM Phillip Clakr MD IMG XR PROCEDURES Final Resu lt * (ABNORMAL) Prothrombin Time/INR (07/07/2025 1:35 PM EST) Prothrombin Time 20.1(H) 12.0 - 14.3 sec LAB COAGULATION METHOD 07/07/2025 3:17 PM EST [facility] INR 1.7(H) 0.9 - 1.1 LAB COAGULATION METHOD 07/07/2025 3:17 PM EST [facility] Blood Venous blood specimen / Unknown Venipuncture / Unknown 07/07/2025 1:35 PM EST 07/07/2025 1:35 PM EST Narrative [facility] - 07/07/2025 3:17 PM EST OPTIMAL INR RANGES FOR PATIENT ON ORAL ANTICOAGULANT THERAPY Prevention of venous thromboembolism INR 2.0 to 3.0 In patients with heart disease: Atrial fibrillation INR 2.0 to 3.0 Valvular heart disease INR 2.0 to 3.0 Tissue heart valves INR 2.0 to 3.0 Mechanical prosthetic valves INR 2.5 to 3.5 Prevention of recurrent PA INR 2.5 to 3.5 us Phillip Clark MD LAB BLOOD ORDERABLES Final R esult [facility] [address] [place] [address] * Basic Metabolic Panel, Plasma (07/07/2025 1:35 PM EST) Glucose, Plasma 87 74 - 99 mg/dL 07/07/2025 3:00 PM EST [facility] BUN, Plasma 21 8 - 23 mg/dL 07/07/2025 3:00 PM EST [facility] Creatinine, Plasma 0.99 0.70 - 1.20 mg/dL 07/07/2025 3:00 PM EST [facility] BUN/Creatinine Ratio 21 07/07/2025 3:00 PM EST [facility] Sodium, Plasma 136 136 - 145 mmol/L 07/07/2025 3:00 PM EST [facility] Potassium, Plasma 4.7 3.6 - 4.9 mmol/L 07/07/2025 3:00 PM EST [facility] Chloride, Plasma 99 97 - 107 mmol/L 07/07/2025 3:00 PM EST [facility] CO2, Plasma 26 22 - 29 mmol/L 07/07/2025 3:00 PM EST [facility] Anion Gap 11 6 - 16 mmol/L 07/07/2025 3:00 PM EST [facility] Total Calcium, Plasma 9.4 8.9 - 10.2 mg/dL 07/07/2025 3:00 PM EST [facility] eGFRcr 82.5 mL/min/1.7 3m*2 07/07/2025 3:00 PM EST [facility] Comment:Reported eGFRcr in m L/min/1.73m2 is based the CKD-EPI 2020 equation that does not use a race coefficient. Blood Venous blood specimen / Unknown Venipuncture / Unknown 07/07/2025 1:35 PM EST 07/07/2025 1:35 PM EST us Phillip Clark MD LAB BLOOD ORDERABLES Final R esult [facility] [address] [place] [address] * (ABNORMAL) CBC W/O Differential (07/07/2025 1:35 PM EST) WBC Count 6.93 3.70 - 10.30 10*3/uL LAB HEMATOLOGY METHOD 07/07/2025 2:47 PM EST [facility] RBC Count 4.43(L) 4.60 - 6.10 10*6/uL LAB HEMATOLOGY METHOD 07/07/2025 2:47 PM EST [facility] HGB 12.1(L) 13.7 - 17.5 g/dL LAB HEMATOLOGY METHOD 07/07/2025 2:47 PM EST [facility] HCT 38.1(L) 40.0 - 51.0 % LAB HEMATOLOGY METHOD 07/07/2025 2:47 PM EST [facility] Platelet Count 391(H) 155 - 369 10*3/uL LAB HEMATOLOGY METHOD 07/07/2025 2:47 PM EST [facility] MCV 86 79 - 98 fL LAB HEMATOLOGY METHOD 07/07/2025 2:47 PM EST [facility] MCH 27.3 26.0 - 32.0 pg LAB HEMATOLOGY METHOD 07/07/2025 2:47 PM EST [facility] MCHC 31.8 30.7 - 35.5 g/dL LAB HEMATOLOGY METHOD 07/07/2025 2:47 PM EST [facility] RDW 15.2(H) 11.5 - 14.5 % LAB HEMATOLOGY METHOD 07/07/2025 2:47 PM EST [facility] MPV 9.1 8.8 - 12.5 fL LAB HEMATOLOGY METHOD 07/07/2025 2:47 PM EST [facility] nRBC 0.0 <=0.0 per 100 WBCs LAB HEMATOLOGY METHOD 07/07/2025 2:47 PM EST [facility] Blood Venous blood specimen / Unknown Venipuncture / Unknown 07/07/2025 1:35 PM EST 07/07/2025 1:35 PM EST us Phillip Clark MD LAB BLOOD ORDERABLES Final R esult [facility] [address] [place] [address] documented in this encounter Visit Diagnoses Diagnosis Ascending aortic aneurysm, unspecified whether ruptured (CMS/HCC)- Primary Ascending aortic aneurysm, unspecified whether ruptured (CMS/HCC) documented in this encounter Additional Health Concerns Assessment Noted Time A fall risk assessment has been complete d for the patient 06/09/2025 12:15 PM EDT A Body Mass Index follow-up plan has been documented for the patient 07/10/2025 11:44 AM EST documented as of this encounter Care Teams X Ray Technician Relationship Specialty [place] [id number] PCP - General 02/28/25 documented as of this encounter
--- OUTSIDE RECORDS SUMMARY | 2025-08-22 07:58 | XMS_ITS | Encounter Summary ---
Author Organization [facility] Address [address] [place] [id number] Care Team Providers Care User Support Analyst Name Role Phone Kamran Singh MD Primary Care Provider [phone] Encounter Details Date Type Department Care Team [...] in a usp (including now)? No 06/15/2025 [facility] Utilities Answer Date Recorded In the past [...] PM EST Appointment Cardiac Imaging [address] [place] [address] 07/20/2026 1:40 PM EST Office Visit [facility] [address], [address] [place] [address] Phillip Clark MD [address] [address] documented as of this encounter Visit Diagnoses Not on filedocumented in this encounter Additional Health Concerns Assessment Noted Time A fall risk assessment has been complete d for the patient 06/09/2025 12:15 PM EDT A Body Mass Index follow-up plan has been documented for the patient 06/20/2025 10:30 AM EDT documented as of this encounter Care Teams User Support Analyst Relationship Specialty Start Date End Date Kamran Singh MD [id number] PCP - General 02/28/25 documented as of this encounter
--- OUTSIDE RECORDS SUMMARY | 2025-08-22 07:58 | XMS_ITS | Encounter Summary ---
Author Organization [facility] Address [address] [place] [address] Care Team Providers Care Quality Facilitator Name Role Phone Kamran Singh MD Primary Care Provider [phone] Encounter Details Date Type Department Care Team (Late st Contact Info) Description 01/04/2025 Orders Only External Location [address] [place] [address] Provider, External Social History Tobacco Use Types [...] PM EST Appointment Cardiac Imaging [address] [place] [address] 07/20/2026 1:40 PM EST Office Visit [place] [facility] [address], [address] [address] Phillip Clark MD [address] [place] [address] documented as of this encounter Procedures Procedure [...] on filedocumented in this encounter Care Teams Quality Facilitator Relationship Specialty [place] [id number] PCP - General 02/28/25 documented as of this encounter
--- OUTSIDE RECORDS SUMMARY | 2025-08-22 07:58 | XMS_ITS | Encounter Summary ---
Author Organization [facility] Address [address] [place] [address] Care Team Providers Care Senior Project Leader/Team Lead Name Role Phone Kamran Singh MD Primary Care Provider Encounter Details Date Type Department Care Team (Late st Contact Info) Description 01/28/2025 Orders Only External Location [address] [place] [address] Provider, External Social History Tobacco Use Types [...] PM EST Appointment Cardiac Imaging [address] [place] [address] 07/20/2026 1:40 PM EST Office Visit [place] [facility] [address], [address] [address] Phillip Clark MD [address] [place] [address] documented as of this encounter Procedures Procedure [...] on filedocumented in this encounter Care Teams Senior Project Leader/Team Lead Relationship Specialty Start Date End Date Kamran Singh MD [id number] PCP - General 02/28/25 documented as of this encounter
--- OUTSIDE RECORDS SUMMARY | 2025-08-22 07:58 | XMS_ITS | Encounter Summary ---
Author Organization [facility] Address [address] [place] [id number] Care Team Providers Care Woodworking Belt Sander Name Role Phone Kamran Singh MD Primary Care Provider [phone] Encounter Details Date Type Department Care Team [...] in a [facility] (including now)? No 06/15/2025 [facility] Utilities Answer Date Recorded In the [...] Appointment Cardiac Imaging [address] [place] [address] 07/20/2026 1:40 PM EST Office Visit [facility] [address], [address] [place] [address] Phillip Clark MD [address] [address] documented as of this encounter Visit Diagnoses Not on filedocumented in this encounter Additional Health Concerns Assessment Noted Time A fall risk assessment has been complete d for the patient 06/09/2025 12:15 PM EDT A Body Mass Index follow-up plan has been documented for the patient 07/10/2025 11:44 AM EST documented as of this encounter Care Teams Woodworking Belt Sander Relationship Specialty Start Date End Date Kamran Singh MD [id number] PCP - General 02/28/25 documented as of this encounter
--- OUTSIDE RECORDS SUMMARY | 2025-08-22 07:59 | XMS_ITS | Encounter Summary ---
Author Organization [facility] Address [address] [place] [address] Care Team Providers Care Medical Transport Specialist Name Role Phone Kamran Singh MD Primary Care Provider [phone] Reason for Visit * Reason Onset Date Comments Medication Therapy Management 08/15/2025 Encounter Details Date Type Department Care Team (Late st Contact Info) Description 08/15/2025 Telephone [facility] [address] [place] [phone] Tiki Gutierrez, [place] [address] Medication Therapy Management Social History Tobacco Use Types Packs/Day Years [...] in a assisted (including now)? No 06/15/2025 [facility] [...] encounter Miscellaneous Notes * Telephone Encounter - Tiki Gutierrez PharmD - 08/15/2025 2:00 PM EST Patient reached by Medication Therapy Management team. MTM Platform: Transition of Care Refill Outreach Successful Intervention(s): Patient filled medication(s): losartan Additional information: Tiki Gutierrez PharmD [facility] MTM Team documented in this encounter Plan of Treatment Upcoming Encounters Date Type Department Care Team (Chacorta white Contact Info) Description 07/20/2026 12:00 PM EST Appointment Cardiac Imaging [address] [place] [address] 07/20/2026 1:40 PM EST Office Visit [place] [facility] [address], [address] [place] [address] Phillip Clark MD [address] [place] [address] documented as of this encounter Visit Diagnoses Not on filedocumented in this encounter Additional Health Concerns Assessment Noted Time A fall risk assessment has been complete d for the patient 06/09/2025 12:15 PM EDT A Body Mass Index follow-up plan has been documented for the patient 07/10/2025 11:44 AM EST documented as of this encounter Care Teams Medical Transport Specialist Relationship Specialty [place] [id number] PCP - General 02/28/25 documented as of this encounter
--- OUTSIDE RECORDS SUMMARY | 2025-08-22 07:59 | XMS_ITS | Encounter Summary ---
Author Organization [facility] Address [address] [place] [id number] Care Team Providers Care Blow Molder Name Role Phone Kamran Singh MD Primary Care Provider [phone] Encounter Details Date Type Department Care Team [...] in a detention (including now)? No 06/15/2025 [facility] Utilities Answer Date Recorded In the past [...] PM EST Appointment Cardiac Imaging [address] [place] [address] 07/20/2026 1:40 PM EST Office Visit [place] [facility] [address], [address] [place] [address] Phillip Clark MD [address] [address] documented as of this encounter Visit Diagnoses Not on filedocumented in this encounter Additional Health Concerns Assessment Noted Time A fall risk assessment has been complete d for the patient 06/09/2025 12:15 PM EDT A Body Mass Index follow-up plan has been documented for the patient 06/20/2025 10:30 AM EDT documented as of this encounter Care Teams Blow Molder Relationship Specialty Start Date End Date Kamran Singh MD [id number] PCP - General 02/28/25 documented as of this encounter
--- OUTSIDE RECORDS SUMMARY | 2025-08-22 07:59 | XMS_ITS | Clinical Summary ---
Author Organization [facility] Address [address] [place] [id number] Care Team Providers Care Sterile Supply Technician Name Role Phone Kamran Singh MD Primary Care Provider [phone] Allergies Active Allergy Reactions Criticality Noted Date Comments Lisinopril Cough Low 03/30/2025 Seafood Hives Medium 03/10/2025 Medications Repatha SureClick 140 MG/ML solution auto-injector autoinjector Inject 1 mL under the skin every 14 days. 5 Active omeprazole (PriLOSEC) [address] capsule Take 1 capsule by mouth daily as needed. Do not crush or chew. Active acetaminophen (Tylenol) 325 MG tablet Take 2 tablets by mouth every 4 hours as needed for pain, headaches or fever. 100 tablet 5 Active empagliflozin (Jardiance) 10 MG Take 1 tablet by mouth daily. 30 tablet 2 5 09/18/19 26 Active ezetimibe (Zetia) 10 MG tablet Take 1 tablet by mouth daily. 30 tablet 2 5 09/18/19 26 Active losartan (Cozaar) 50 MG tablet Take 0.5 tablets by mouth 2 times a day. 60 tablet 2 5 12/18/19 26 Active rosuvastatin (Crestor) 40 MG tablet Take 1 tablet by mouth daily. 30 tablet 2 5 09/18/19 26 Active Additional Information Patient not taking.Reported on 07/07/2025 methocarbamol (Robaxin) 500 MG tablet Take 1 tablet by mouth 4 times a day as needed for muscle spasms. 40 tablet 5 Active Additional Information Patient not taking.Reported on 07/07/2025 metoprolol tartrate (Lopressor) 50 MG tablet Take 1 tablet by mouth 2 times a day. 60 tablet 2 5 09/18/19 26 Active oxyCODONE (Roxicodone) 5 MG immediate release tablet Take 1 tablet by mouth every 4 hours as needed for moderate pain. 18 tablet 5 Active warfarin (Coumadin) 2 MG tablet Take 2 tablets by mouth daily. 4mg daily until you get your INR drawn on Jun 22, then as directed. 60 tablet 11 5 Active furosemide (Lasix) 40 MG tablet Take 1 tablet by mouth daily. Take Lasix (furosemide) 40mg once daily for 3 days only; to be taken with potassium 20mEq once daily for 3 days only. 3 tablet 5 Active spironolactone (Aldactone) 25 MG tablet Take 1 tablet by mouth daily. holding 5 Active Active Problems Problem Noted Date Diagnosed Date [...] ileus Ileus 06/16/2025 06/20/2025 Cardiac volume overload 06/15/2025 102 Assessment & Plan (06/16/2025 1:20 PM EDT): [...] Encounters Date Type Department Care Team Description 08/15/2025 Telephone [facility] [address] [place] [address] Tiki Gutierrez, PharmD Medication Therapy Management 07/07/2025 2:40 PM EST Office Visit [facility] Cardiothoracic [address], [address] [place] [address] Phillip Clark MD Ascending aortic aneurysm, unspecified whether ruptured (CMS/HCC) (Primary Dx) 07/07/2025 1:39 PM EST - 07/07/2025 11:59 PM EST Hospital Encounter [facility] Radiology [address], 1[address] [place] [address] Ascending aortic aneurysm, unspecified whether ruptured (CMS/HCC) Discharge Disposition: Home or Self Care 07/07/2025 Travel 07/04/2025 Travel 06/30/2025 Travel 06/20/2025 Travel 06/19/2025 Travel 06/18/2025 Travel 06/17/2025 Travel 06/16/2025 Travel 06/15/2025 Travel 06/14/2025 7:45 AM EDT - 06/14/2025 8:15 PM EDT Surgery [facility] [address] [place] [address] Phillip Clark MD Aortic valve replacement [99510 (CPT )] 06/14/2025 7:45 AM EDT Anesthesia Event [facility] [address] [place] [address] Jean Claude Staley MD Burns, Jonathon R, DO 06/14/2025 5:18 AM EDT - 06/20/2025 2:25 PM EDT Hospital Encounter [facility] [address] [place] [address] Phillip Clark MD Other secondary hypertension (Primary Dx); Severe aortic regurgitation; S/P AVR Discharge Disposition: Home or Self Care 06/14/2025 Travel 06/09/2025 1:42 PM EDT - 06/09/2025 11:59 PM EDT Hospital Encounter [facility] Radiology [address], [address] [place] [address] Severe aortic regurgitation Discharge Disposition: Home or Self Care 06/09/2025 12:20 PM EDT Office Visit [facility] Cardi[facility] [address], [address] [place] [address] Phillip Clark MD Severe aortic regurgitation (Primary Dx) 06/09/2025 Travel 06/07/2025 8:30 AM EDT Pre-Admission Testing [facility] Pre-op Clinic [address], [address] [place] [address] 06/07/2025 Travel 06/02/2025 Travel from Last 3 Months Family History [...] time in the past 12 m [facility], were you homeless or living in a alf (including now)? No 06/15/2025 [facility] Utilities Answer Date Recorded In the past 12 months has th e [facility], gas, oil, or water company threatened to [...] PM EST Appointment Cardiac Imaging [address] [place] [address] 07/20/2026 1:40 PM EST Office Visit [facility] [address], [address] [place] [address] Phillip Clark MD [address] [place] [address] Health Maintenance Due Date Last Done Comments [facility]-Hepatitis C Screening 1955 [facility]-Medicare Annual Wellness (AWV) 1955 [facility]-Infant/Child/Adol SDOH Screenings 1955 Diabetes: Dental Exam 1965 [facility]-DTaP,Tdap,and Td Vaccines (1 - Tdap) 1974 [facility]-Pneumococcal Vaccine: 50+ Years (1 of 2 - PCV) 1974 CT Colonography 2000 Colonoscopy 2000 FIT-DNA 2000 FIT 2000 FOBT 2000 Sigmoidoscopy 2000 [facility]-Colorectal Cancer Screening 2000 [facility]-RSV Vaccine: 60+ Years or (1 - Risk 50-74 years 1-dose series) 2005 [facility]-Zoster Vaccines (1 of 2) 2005 LLV-RLJNV-03 Vaccine ( season) 2025 06/22/2022, 01/19/2022, 07/12/2021, Additional history exists [facility]-Influenza Vaccine (#1) 2025 [facility]-Diabetes: Hemoglobin A1C 12/07/2025 06/09/2025 [facility]- SDOH Screenings 12/14/2025 [facility]-Adult SDOH Screenings 12/14/2025 06/15/2025 [facility]-Depression Screening 03/10/2026 03/10/2025 [facility]-Obesity Intervention Completed 025, 06/09/2025, 05/05/2025, Additional history exists HPV Vaccines (No Doses Required) Completed [facility]-HIB Vaccines Aged Out No longer e [...] this topic Medical Devices Implanted Type Area Animal Control Specialist Device Identifier Shelf Expiration Date Model / Serial / Lot Graft Ptch 6x6in [id number] [place] - [id number] Implanted:Qty: 1 on 06/14/2025 by Phillip Clark MD at [facility] N/A: Heart [employer]-[id number] / / Valve Atrial 25mm Rotatabl Cuf Std Ptfe - [id number] - [id number] Implanted:Qty: 1 on 06/14/2025 by Phillip Clark MD at [facility] N/A: Heart [id number] 03/28/2030 [id number] / [id number] / [id number] Procedures Procedure Name Priority Date/Time Associated Diagnosis [...] PANEL, PLASMA Routine 06/16/2025 5:35 PM EDT [facility] CRITICAL CARE, E/M 30-74 MINUTES Routine 06/16/2025 [...] PEP THERAPY Routine 06/15/2025 12:00 PM EDT AR CRITICAL CARE, E/M 30-74 MINUTES Routine 06/15/2025 [...] 1 VIEW Routine 06/15/2025 2:53 AM EDT [facility] CRITICAL CARE, ADDL 30 MIN Routine 06/15/2025 12:21 AM EDT Other secondary hypertension AR CRITICAL CARE, ADDL 30 MIN Routine 06/15/2025 [...] PANEL, ARTERIAL Routine 06/14/2025 6:47 PM EDT AR CRITICAL CARE, E/M 30-74 MINUTES Routine 06/14/2025 [...] PROCEDURE PLACEHOLDER Routine 06/14/2025 8:08 AM EDT AR -AORT GRF W/CARD BYP F/AORTIC DISSECTION 06/14/2025 [...] esult [facility] [address] [place] [address] * (ABNORMAL) CBC W/O Differential (07/07/2025 1:35 [...] esult [facility] [address] [place] [address] * Basic Metabolic Panel, Plasma (07/07/2025 1:35 [...] ORDERABLES Final R esult Performing Organization Address [facility] Co de Phone Number [facility] [address] [place] [address] * Phosphorus (06/20/2025 1:52 AM EDT) Only the most recent of8 resultswithin the time period is included. Phosphorus, Plasma 2.8 2.5 - 4.5 mg/dL 06/20/2025 2:23 AM EDT [facility] Blood Venous blood specimen / Unknown Venipuncture / Unknown 06/20/2025 1:52 AM EDT 06/20/2025 1:59 AM EDT Phillip Clark MD LAB BLOOD ORDERABLES Final R esult Performing Organization Address [facility] [place] [address] * Magnesium (06/20/2025 1:52 AM EDT) Only the most recent of10 resultswithin the time period is included. Magnesium, Plasma 2.2 1.9 - 2.4 mg/dL 06/20/2025 2:23 AM EDT [facility] Blood Venous blood specimen / Unknown Venipuncture / Unknown 06/20/2025 1:52 AM EDT 06/20/2025 1:59 AM EDT Phillip Clark MD LAB BLOOD ORDERABLES Final R esult Performing Organization Address City/[facility] Co de Phone Number [facility] [address] [place] [address] * PERIPHERAL IV (SMARTFORM LINK) (06/20/2025 1:47 [...] ECG Atrial Rate 85 BPM MUSE ECG AR Interval 176 ms MUSE ECG QRSD Interval 110 ms MUSE ECG QT Interval 402 ms MUSE ECG QTC Interval 478 ms MUSE ECG P [place] 43 degrees MUSE ECG R [place] -30 degrees MUSE ECG T Wave [place] 36 degrees MUSE ECG Diagnosis Poor data quality, interpretation may be adversely affected MUSE ECG Diagnosis Sinus rhythm with premature supraventricular complexes and with occasional premature ventricular complexes MUSE ECG Diagnosis Left axis deviation MUSE ECG Diagnosis Poor R-wave progression MUSE ECG Diagnosis Abnormal ECG MUSE ECG Diagnosis Recommend repeat ECG MUSE ECG Diagnosis MUSE ECG Diagnosis Confirmed by Aman Coe ([id number]) on 06/19/2025 1:33:10 PM MUSE ECG 06/19/2025 [...] R esult [facility] [address] [place] [address] * AR CRITICAL CARE, E/M 30-74 MINUTES (06/16/2025 9:58 [...] for testing. Comment 06/16/2025 8:45 AM EDT [facility] Chef French ID Fariba Blanton 025 8:45 AM EDT [facility] Device ID [id number] 06/16/2025 8:45 AM EDT [facility] Specimen Type POC Arterial 06/16/2025 8:45 AM EDT [facility] Blood Arterial blood specimen / Unknown 06/16/2025 8:40 AM EDT 06/16/2025 8:45 AM EDT us Phillip Clark MD LAB POINT OF CARE TE ST DOCKED DEVICE UNSOLICITED RESULTS Final Result [facility] [address] [place] [address] * XR Abdomen 1 View (06/16/2025 1:20 [...] R esult [facility] [address] [place] [address] * AR CRITICAL CARE, E/M 30-74 MINUTES (06/15/2025 9:19 [...] ORDERABLES Final R esult Performing Organization Address [facility] [place] [address] * Ionized calcium, whole blood (06/15/2025 6:40 AM EDT) Ionized Calcium, Whole Blood 4.6 4.6 - 5.1 mg/dL LAB HEMATOLOGY METHOD 06/15/2025 6:50 AM EDT [facility] Blood Arterial blood specimen / Unknown Venipuncture / Unknown 06/15/2025 6:40 AM EDT 06/15/2025 6:48 AM EDT Phillip Clark MD LAB BLOOD ORDERABLES Final R esult Performing Organization Address [facility] [place] [address] * AR CRITICAL CARE, ADDL 30 MIN, AR CRITICAL CARE, ADDL 30 MIN (06/15/2025 12:21 [...] R esult Performing Organization Address City/[facility] Co de Phone Number [facility] [address] [place] [address] * (ABNORMAL) Hemoglobin (06/15/2025 12:20 AM EDT) [...] R esult Performing Organization Address City/[facility] Co de Phone Number [facility] [address] [place] [address] * Hematocrit (06/15/2025 12:20 AM EDT) Only the most recent of2 resultswithin the time period is included. [facility] HCT 41.0 40.0 - 51.0 % LAB HEMATOLOGY METHOD 06/15/2025 12:36 AM EDT [facility] Blood Venous blood specimen / Unknown Venipuncture / Unknown 06/15/2025 12:20 AM EDT 06/15/2025 12:26 AM EDT Phillip Clark MD LAB BLOOD ORDERABLES [facility] Performing Organization Address City/[facility] Co de Phone Number [facility] [address] [place] [address] * Potassium, Plasma (06/15/2025 12:20 AM EDT) [...] R esult [facility] [address] [place] [address] * AR CRITICAL CARE, E/M 30-74 MINUTES (06/14/2025 5:35 [...] ORDERABLES Final R esult Performing Organization Address [facility] Co de Phone Number [facility] [address] [place] [address] * Eli auris Surveillance by PCR (06/14/2025 2:37 PM EDT) Eli auris PCR Result Not Detected Not Detected 06/15/2025 12:46 PM EDT [facility] Swab (Axilla and Groin) Non-blood Collection / Unknown 06/14/2025 2:37 PM EDT 06/14/2025 3:10 PM EDT Narrative [facility] - 06/15/2025 12:46 PM EDT This PCR assay was developed and its performance characteristics determined by [facility] as appropriate for clinical purposes. This assay has not been cleared or approved by the FDA, but is performed in a CLIA regulated laboratory that is qualified to perform high-complexity testing. Phillip Clark MD LAB MICROBIOLOGY - GENERAL O RDERABLES Final Result Performing Organization Address [facility] Co de Phone Number [facility] [address] [place] [address] * Multi Drug Resistance Test (06/14/2025 2:37 PM EDT) Pathologist [facility] Culture No growth at day 1 06/15/2025 4:03 PM EDT [facility] Swab (Nares and Smita Rectal) Non-blood Collection / Unknown 06/14/2025 2:37 PM EDT 06/14/2025 3:10 PM EDT Narrative [facility] - 06/15/2025 4:03 PM EDT This test was developed and its performance characteristics determined by the [facility] Clinical Microbiology Laboratory. Although the media is FDA-approved, it is not FDA-approved for all specimen types submitted. The FDA has determined that such clearance or approval is not necessary. This test is used for surveillance purposes. It should not be regarded as investigational or for research. The [facility] Clinical Microbiology Laboratory is certified under the Clinical Laboratory Improvement Amendments of 1988 (CLIA-88) as qualified to perform high complexity clinical laboratory testing. us Phillip Clark MD LAB MICROBIOLOGY - GENERAL O RDERABLES Final Result Performing Organization Address [facility] Co de Phone Number [facility] [address] [place] [address] * APTT (06/14/2025 2:36 PM EDT) Only [...] ORDERABLES Final R esult Performing Organization Address [facility] [place] [address] * PB POINT OF CARE IMAGING PLACEHOLDER [...] Prep: ChloraPrep Patient monitoring: heart rate, monitoring specialist and continuous pulse ox Anesthesia [...] mcg/kg/min) RV: same as baseline Aortic valve: mcgrath valve replaced by mechanical valve. New valve [...] 3 mmol/L 06/14/2025 2:02 PM EDT [facility] HCO3, Arterial 21.0(L) 22 - 26 mmol/L 06/14/2025 2:02 PM EDT [facility] Total Hemoglobin, Arterial, Whole Blood 14.5 13.7 - 17.5 g/dL 06/14/2025 2:02 PM EDT [facility] Hematocrit, Arterial 44.0 40 - 51.0 % 06/14/2025 2:02 PM EDT [facility] Sodium, Arterial 136 136 - 145 mmol/L 06/14/2025 2:02 PM EDT [facility] Potassium, Arterial 3.4(L) 3.6 - 4.9 mmol/L 06/14/2025 2:02 PM EDT [facility] Chloride, Whole Blood 105 97 - 107 mmol/L 06/14/2025 2:02 PM EDT [facility] Glucose, Arterial 138(H) 74 - 99 mg/dL 06/14/2025 2:02 PM EDT [facility] Ionized Calcium, Arterial 4.9 4.6 - 5.1 mg/dL 06/14/2025 2:02 PM EDT [facility] Lactate, Arterial 4.2(H) 0.5 - 1.6 mmol/L 06/14/2025 2:02 PM EDT [facility] Body Temperature 37.0 Celsius 06/14/2025 2:02 PM EDT [facility] pH, Temp Corrected, Arterial 7.35 7.31 - 7.42 06/14/2025 2:02 PM EDT [facility] pCO2, Temp Corrected, Arterial 38 32 - 45 mm Hg 06/14/2025 2:02 PM EDT [facility] pO2, Temp Corrected, Arterial 376 >80 mm Hg 06/14/2025 2:02 PM EDT [facility] Chef French ID Ricki Zamarripa 06/14/2025 2:02 PM EDT [facility] Blood Whole blood specimen / Unknown 06/14/2025 2:00 PM EDT 06/14/2025 2:02 PM EDT us Phillip Clark MD LAB POINT OF CARE TE ST DOCKED DEVICE UNSOLICITED RESULTS Final Result [facility] [address] [place] [address] * POCT ACT (06/14/2025 12:43 PM EDT) Only the most recent of7 resultswithin the time period is included. ACT+ (HIGH RANGE) 98 68 - 600 Seconds 06/14/2025 12:49 PM EDT [facility] Chef French ID Vick Dupont 06/14/2025 12:49 PM EDT [facility] ACT Device ID [id number] 06/14/2025 12:49 PM EDT [facility] Comment [...] Co de Phone Number [facility] [address] [facility] [address] [place] [address] * (ABNORMAL) QPLUS (06/14/2025 11:55 AM EDT) [facility] Clot Time 06/14/2025 12:12 PM EDT [...] Seconds 06/14/2025 12:12 PM EDT [facility] Chef French ID Ricki Zamarripa 06/14/2025 12:12 PM EDT [facility] Device ID [id number] 06/14/2025 12:12 PM EDT [facility] Whole Blood 06/14/2025 11:5 5 AM EDT 06/14/2025 12:12 PM EDT Narrative [facility] - 06/14/2025 12:[address]: No Clot Detected us Phillip Clark MD LAB POINT OF CARE TE ST DOCKED DEVICE UNSOLICITED RESULTS Final Result [facility] [address] [place] [address] * Surgical Pathology Exam (06/14/2025 10:18 AM EDT) Case Report Surgical Pathology Case: [id number] Authorizing Provider: Phillip Clark MD Collected: 06/14/2025 1018 Ordering Location: [facility] OPERATING ROOM Received: 06/14/2025 1413 Pathologist: Beth [...] size from 2.5-4.0 cm in greatest dimension. Paver Layer sections are submitted in cassette A1. Cold Time: 3h 55m April T Santos 06/15/2025 11:44 AM EDT [facility] Tissue Heart structure / Unknown 06/14/2025 10:18 AM EDT 06/14/2025 2:13 PM EDT Comment:Pre-op diagnosis: Severe aortic regurgitation [I35.1] us Phillip Clark MD LAB PATHOLOGY ORDERABLES Fin al Result [facility] [address] [place] [address] * AR AN CENTRAL LINE DOUBLE LUMEN, [...] ORDERABL ES Final Result Performing Organization Address [facility] de Phone Number BLOOD BANK [address] [place] [address], [place] * Type & Screen, 30 Days [...] ORDERABL ES Final Result [facility] [address] * (ABNORMAL) Hemoglobin A1c (06/09/2025 1:39 [...] Adults <6.0% Children and Adolescents <7.5% Source: [place] [employer]. Standards of medical care in diabetes,2017. Diabetes Care.2017:40 (suppl 1):S1-S135. Phillip Clark MD LAB BLOOD ORDERABLES Final R esult [facility] [address] [place] [address] * Comprehensive Metabolic Panel, Plasma (06/09/2025 1:39 [...] esult [facility] [address] [place] [address] from Last 3 Months Insurance [employer] Advance Directives * Full Code (Latest Code Status on File) Date Activated Date Inactivated Comments 06/14/2025 2:35 PM 06/20/2025 4:27 PM Question Answer Comments I have reviewed the capacity from the link above and, if needed, have updated to appropriate status: Yes Care Teams Sterile Supply Technician Relationship Specialty [place] [id number] PCP - General 02/28/25
[2025-08-22 11:03] LABS: PHA INR Fingerstick 1.4 (0.9-1.1)
== END 2025-08-22 11:30 ==
LOC: ACC 07:57
PROVIDERS: PCP Family Medicine; Visit Provider Nurse Practitioner
DX: Z79.01 Long term (current) use of anticoagulants (principal); Z95.2 Presence of prosthetic heart valve
CPT/HCPCS: 85610; 99211; G0463

== ENCOUNTER 2025-08-29 07:52 | Outpatient (CLI) | payer BC, MEDICARE, SELFPAY ==
--- OUTSIDE RECORDS SUMMARY | 2025-07-07 13:39 | XMS_ITS | Encounter Summary ---
Author Organization [facility] Address [address] [place] [address] Care Team Providers Care Fiber Optic Assembler Name Role Phone Kamran Singh MD Primary Care Provider [phone] Encounter Details Date Type Department Care Team (Latest Contact Info) Description 07/07/2025 1:39 PM EST - 07/07/2025 11:59 PM EST Hospital Encounter [place] [facility] [address], [address] [place] [address] Ascending aortic aneurysm, unspecified whether ruptured (CMS/[facility]) Discharge Disposition: Home or Self Care Social [...] any time in the past 12 m [facility], were you homeless or living in a residential (including now)? No 06/15/2025 [facility] Utilities Answer Date Recorded In [...] PM EST Appointment Cardiac Imaging [address] [place] [address] 07/20/2026 1:40 PM EST Office Visit [place] [facility] [address], [facility] [address] [place] [address] Phillip Clark MD [address] [place] [address] documented as of this encounter Procedures Procedure [...] Salmon MD on 07/07/2025 1:53 PM Phillip Clark MD IMG XR PROCEDURES [...] documented as of this encounter Care Teams Fiber Optic Assembler Relationship Specialty Start Date End Date Kamran Singh MD [id number] PCP - General 02/28/25 documented as of this encounter
--- OUTSIDE RECORDS SUMMARY | 2025-07-07 14:40 | XMS_ITS | Encounter Summary ---
Author Organization [facility] Address [address] [place] [id number] Care Team Providers Care Metal Sprayer Protective Coating Name Role Phone Kamran Singh MD Primary Care Provider [phone] Reason for Referral * Imaging (Routine) - Pending Review Specialty Diagnoses / Procedures Referred By Nathalia t Referred To Contact Cardiology Diagnoses Ascending aortic aneurysm, unspecified whether ruptured (CMS/HCC) Procedures Echo, Adult Transthoracic Complete Phillip Clark MD [address] [address] Phone: tel: fax: Referral ID Status Reason Start Date Expiration Date Visits Requested Visits Authorized [id number] Pending Review Perform Procedure 07/07/2025 01/06/2027 1 1 Encounter Details Date Type Department Care Team (Late st Contact Info) Description 07/07/2025 2:40 PM EST Office Visit [facility] [address], [address] [address] Phillip Clark MD [address] [address] Ascending aortic aneurysm, unspecified whether [...] time in the past 12 m [facility], were you homeless or living in a fci (including now)? No 06/15/2025 [facility] Utilities Answer Date Recorded In the past 12 months has th e electric, gas, oil, or water [employer] threatened to shut off services in your [...] documented in this encounter Functional Status * BP Answer Date of Assessment Author 127/68 07/07/2025 2:32 PM EST RashadJodi loera, RN * Pulse Answer Date of Assessment Author 86 07/07/2025 2:32 PM EST RashadJodi, RN * SpO2 Answer Date of Assessment Author 99 07/07/2025 2:21 PM EST RashadJodi, RN * Weight Answer Date of Assessment Author 2959.46 07/07/2025 2:21 PM EST RashadJodi loera, RN * Total Weight Change Percent Answer Date of Assessment Author 2222 07/07/2025 2:21 PM EST RashadJodi loera, RN * Weight Change Since Preop Answer Date of Assessment Author 83.88 07/07/2025 2:21 PM EST RashadJodia Sveta, RN * Weight Change Since Last Visit Answer Date of Assessment Author 83.88 07/07/2025 2:21 PM EST RashadJodia L, RN * Weight Change 24 hrs Answer Date of Assessment Author -1.7 07/07/2025 2:21 PM EST RashadJodi, RN * Weight Change Since Preop Answer Date of Assessment Author 83.9 07/07/2025 2:21 PM EST RashadJodi loeraa Sveta, RN * Weight Change Since Last Visit Answer Date of Assessment Author 83.9 07/07/2025 2:21 PM EST Rashad, Jodi Bangura, RN * Difference in Weight Since Last Visit Answer Date of Assessment Author -1.7 07/07/2025 2:21 PM EST Rsahad, Jodi Bangura, RN * Pain Score Answer Date of Assessment Author 5 07/07/2025 2:22 PM EST Rashad, Jodi raya L, RN * Pain Screening/Additional Assessments Question Answer Date of Assessment Author Pain Screening/Assessments Pain Screening 07/07/2025 2 :22 PM EST Rashad, Leeann L, RN * Pain Screening Answer Date of Assessment Author 0-10 07/07/2025 2:22 PM EST Rashad, Jodi raya L, RN * BP Answer Date of Assessment Author 127/68 07/07/2025 2:32 PM EST Rashad, Jodi raya L, RN * Pulse Answer Date of Assessment Author 86 07/07/2025 2:32 PM EST Rashad, Jodi raya L, RN * SpO2 Answer Date of Assessment Author 99 07/07/2025 2:21 PM EST Rashad, Jodi raya Sveta, RN * Weight Answer Date of Assessment Author 2959.46 07/07/2025 2:21 PM EST Rashad, Jodi raya Sveta, RN * Pain Score Answer Date of Assessment Author 5 07/07/2025 2:22 PM EST Rashad, Jodi Bangura, RN documented as of this encounter Mental Status * BP Answer Entry Date Author 127/68 07/07/2025 2:32 PM EST Rashad, Jodi raya L, RN * Pulse Answer Entry Date Author 86 07/07/2025 2:32 PM EST Rashad, Jodi raya L, RN * SpO2 Answer Entry Date Author 99 07/07/2025 2:21 PM EST Rashad, Jodi raya L, RN * Weight Answer Entry Date Author 2959.46 07/07/2025 2:21 PM EST Rashad, Jodi flora L, RN * Total Weight Change Percent Answer Entry Date Author 222107/07/2025 2:21 PM EST Rashad, Jodi flora L, RN * Weight Change Since Preop Answer Entry Date Author 83.88 07/07/2025 2:21 PM EST Rashad, Jodi flora L, RN * Weight Change Since Last Visit Answer Entry Date Author 83.88 07/07/2025 2:21 PM EST Rashad, Jodi thia L, RN * Weight Change 24 hrs Answer Entry Date Author -1.7 07/07/2025 2:21 PM EST Rashad, Jodi Bangura RN * Restart Pain Assessment Timer Answer Entry Date Author Yes 07/07/2025 2:22 PM EST Rashad, Jodi Bangura RN * Weight Change Since Preop Answer Entry Date Author 83.9 07/07/2025 2:21 PM EST Rashad, Jodi Bangura RN * Weight Change Since Last Visit Answer Entry Date Author 83.9 07/07/2025 2:21 PM EST Rashad, Jodi Bangura, RN * Difference in Weight Since Last Visit Answer Entry Date Author -1.7 07/07/2025 2:21 PM EST Rashad, Jodi Bangura RN * Pain Score Answer Entry Date Author 5 07/07/2025 2:22 PM EST Rashad, Jodi Bangura RN * Pain Screening Answer Entry Date Author 0-10 07/07/2025 2:22 PM EST Jodi Solorzano RN documented in this encounter Miscellaneous Notes * [...] sensation and reflexes and motor intact Skin: [place], warm, well perfused Incision clean and healing [...] well overall. Has already reestablished care with strategic partnership manager. Planning to start cardiac rehab in next [...] PM EST Appointment Cardiac Imaging [address] [place] [address] 07/20/2026 1:40 PM EST Office Visit [facility] Cardiothoracic [address], [address] [place] [address] Phillip Clark MD [address] [place] [address] Scheduled Orders Name Type Priority Associated Diagnoses [...] LAB COAGULATION METHOD 07/07/2025 3:17 PM EST [facility] INR 1.7(H) 0.9 - 1.1 LAB COAGULATION METHOD 07/07/2025 3:17 PM EST [facility] Blood Venous blood specimen / Unknown Venipuncture / Unknown 07/07/2025 1:35 PM EST 07/07/2025 1:35 PM EST Narrative [facility] - 07/07/2025 3:17 PM EST OPTIMAL INR RANGES FOR PATIENT ON ORAL ANTICOAGULANT THERAPY Prevention of venous thromboembolism INR 2.0 to 3.0 In patients with heart disease: Atrial fibrillation INR 2.0 to 3.0 Valvular heart disease INR 2.0 to 3.0 Tissue heart valves INR 2.0 to 3.0 Mechanical prosthetic valves INR 2.5 to 3.5 Prevention of recurrent NE INR 2.5 to 3.5 us Phillip Clark MD LAB BLOOD ORDERABLES Final R esult [facility] [address] [place] [address] * Basic Metabolic Panel, Plasma (07/07/2025 1:35 PM EST) Glucose, Plasma 87 74 - 99 mg/dL 07/07/2025 3:00 PM EST [facility] BUN, Plasma 21 8 - 23 mg/dL 07/07/2025 3:00 PM EST [facility] Creatinine, Plasma 0.99 0.70 - 1.20 mg/dL 07/07/2025 3:00 PM EST [facility] BUN/Creatinine Ratio 21 07/07/2025 3:00 PM EST [facility] Sodium, Plasma 136 136 - 145 mmol/L 07/07/2025 3:00 PM EST [facility] Potassium, Plasma 4.7 3.6 - 4.9 mmol/L 07/07/2025 3:00 PM EST [facility] Chloride, Plasma 99 97 - 107 mmol/L 07/07/2025 3:00 PM EST [facility] CO2, Plasma 26 22 - 29 mmol/L 07/07/2025 3:00 PM EST [facility] Anion Gap 11 6 - 16 mmol/L 07/07/2025 3:00 PM EST [facility] Total Calcium, Plasma 9.4 8.9 - 10.2 mg/dL 07/07/2025 3:00 PM EST [facility] eGFRcr 82.5 mL/min/1.7 3m*2 07/07/2025 3:00 PM EST [facility] Comment:Reported eGFRcr in m L/min/1.73m2 is based the CKD-EPI 2020 equation that does not use a race coefficient. Blood Venous blood specimen / Unknown Venipuncture / Unknown 07/07/2025 1:35 PM EST 07/07/2025 1:35 PM EST us Phillip Clark MD LAB BLOOD ORDERABLES Final R esult [facility] [address] [place] [address] * (ABNORMAL) CBC W/O Differential (07/07/2025 1:35 PM EST) WBC Count 6.93 3.70 - 10.30 10*3/uL LAB HEMATOLOGY METHOD 07/07/2025 2:47 PM EST [facility] RBC Count 4.43(L) 4.60 - 6.10 10*6/uL LAB HEMATOLOGY METHOD 07/07/2025 2:47 PM EST [facility] HGB 12.1(L) 13.7 - 17.5 g/dL LAB HEMATOLOGY METHOD 07/07/2025 2:47 PM EST [facility] HCT 38.1(L) 40.0 - 51.0 % LAB HEMATOLOGY METHOD 07/07/2025 2:47 PM EST [facility] Platelet Count 391(H) 155 - 369 10*3/uL LAB HEMATOLOGY METHOD 07/07/2025 2:47 PM EST [facility] MCV 86 79 - 98 fL LAB HEMATOLOGY METHOD 07/07/2025 2:47 PM EST [facility] MCH 27.3 26.0 - 32.0 pg LAB HEMATOLOGY METHOD 07/07/2025 2:47 PM EST [facility] MCHC 31.8 30.7 - 35.5 g/dL LAB HEMATOLOGY METHOD 07/07/2025 2:47 PM EST [facility] RDW 15.2(H) 11.5 - 14.5 % LAB HEMATOLOGY METHOD 07/07/2025 2:47 PM EST [facility] MPV 9.1 8.8 - 12.5 fL LAB HEMATOLOGY METHOD 07/07/2025 2:47 PM EST [facility] nRBC 0.0 <=0.0 per 100 WBCs LAB HEMATOLOGY METHOD 07/07/2025 2:47 PM EST [facility] Blood Venous blood specimen / Unknown Venipuncture / Unknown 07/07/2025 1:35 PM EST 07/07/2025 1:35 PM EST us Phillip Clark MD LAB BLOOD ORDERABLES Final R esult [facility] [address] [place] [address] documented in this encounter Visit Diagnoses Diagnosis [...] documented as of this encounter Care Teams Metal Sprayer Protective Coating Relationship Specialty Start Date End Date Kamran Singh MD [id number] PCP - General 02/28/25 documented as of this encounter
--- OUTSIDE RECORDS SUMMARY | 2025-08-29 07:57 | XMS_ITS | Encounter Summary ---
Author Organization [facility] Address [address] [place] [id number] Care Team Providers Care Cardiac Sonographer Name Role Phone Kamran Singh MD Primary Care Provider [phone] Encounter Details Date Type Department Care Team [...] in a chcf (including now)? No 06/15/2025 [facility] Utilities Answer Date Recorded In the past [...] as of this encounter Functional Status * Travel Screening Question Answer Date of Assessment Author Have you traveled intern[place] or domestically in the last month? No 06/30/2025 9:01 AM EDT Mycha rt, Generic documented as of this encounter Mental Status * Travel Screening Question Answer Entry Date Author Have you traveled intern[place] or domestically in the last month? No 06/30/2025 9:01 AM EDT Mycha rt, Generic documented in this encounter Plan of Treatment Upcoming Encounters Date Type Department Care Team (Late st Contact Info) Description 07/20/2026 12:00 PM EST Appointment Cardiac Imaging [address] [place] [address] 07/20/2026 1:40 PM EST Office Visit [facility] [address], [address] [place] [phone] Phillip Clark MD [address] [facility] [address] [place] [address] documented as of this encounter Visit Diagnoses Not on filedocumented in this encounter Additional Health Concerns Assessment Noted Time A fall risk assessment has been complete d for the patient 06/09/2025 12:15 PM EDT A Body Mass Index follow-up plan has been documented for the patient 06/20/2025 10:30 AM EDT documented as of this encounter Care Teams Cardiac Sonographer Relationship Specialty [place] [id number] PCP - General 02/28/25 documented as of this encounter
--- OUTSIDE RECORDS SUMMARY | 2025-08-29 07:58 | XMS_ITS ---
Laboratory report Created on: August 02, 2025 JERSON AVILEZ : 1955 Sex: Male Author Organization Unknown PROBLEMS Problems List Code Description RESULTS Laboratory Orders Date Order Code Test 2024 [id number] FACTOR VIII ACTI VITY 2024 [id number] [facility] ([facility]) AG Laboratory Results Date LOINC Test Value Unit Reference Range Interpre tation 2024 3209-4 FACTOR VIII ACTIVITY 73 % 56-140 2024 91811-8 [facility] ([facility] AG 72 % 50-200
--- OUTSIDE RECORDS SUMMARY | 2025-08-29 07:58 | XMS_ITS | Encounter Summary ---
Author Organization [facility] Address [address] [place] [id number] Care Team Providers Care Solar Energy Specialist Name Role Phone Kamran Singh MD Primary Care Provider [phone] Encounter Details Date Type Department Care Team [...] a care home (including now)? No 06/15/2025 [facility] Utilities Answer Date Recorded In the [...] as of this encounter Functional Status * Communicable Disease Screening Question Answer Date of Assessment Author Have you been in contact wit h someone who was sick? No / Unsure 07/07/2025 1:[address] so Do you have any of the following new or worsening symptoms? None of these 07/07/2025 1:[address] * Travel Screening Question Answer Date of Assessment Author Have you traveled intern[place] g[place] or domestically in the last month? No 07/07/2025 1:27 PM Sathish Norton documented as of this encounter Mental Status * Communicable Disease Screening Question Answer Entry Date Author Have you been in contact wit h someone who was sick? No / Unsure 07/07/2025 1:[address] so Do you have any of the following new or worsening symptoms? None of these 07/07/2025 1:27 PM EST Sathish Dodge * Travel Screening Question Answer Entry Date Author Have you traveled intern[place] or domestically in the last month? No 07/07/2025 1:27 PM EST Sathish Villagomez documented in this encounter Plan of Treatment Upcoming Encounters Date Type Department Care Team (Late st Contact Info) Description 07/20/2026 12:00 PM EST Appointment Cardiac Imaging [address] [place] [address] 07/20/2026 1:40 PM EST Office Visit [facility] [address], [address] [place] [phone] Phillip Clark MD [address] [place] [address] documented as of this encounter Visit Diagnoses Not on filedocumented in this encounter Additional Health Concerns Assessment Noted Time A fall risk assessment has been complete d for the patient 06/09/2025 12:15 PM EDT A Body Mass Index follow-up plan has been documented for the patient 07/10/2025 11:44 AM EST documented as of this encounter Care Teams Solar Energy Specialist Relationship Specialty [place] [id number] PCP - General 02/28/25 documented as of this encounter
--- OUTSIDE RECORDS SUMMARY | 2025-08-29 07:58 | XMS_ITS | Encounter Summary ---
Author Organization [facility] Address [address] [place] [address] Care Team Providers Care Underwriter Mortgage Loan Name Role Phone Kamran Singh MD Primary Care Provider Encounter Details Date Type Department Care Team (Late st Contact Info) Description 01/28/2025 Orders Only External Location [address] [place] [address] Provider, External Social History Tobacco Use Types [...] PM EST Appointment Cardiac Imaging [address] [place] [address] 07/20/2026 1:40 PM EST Office Visit [facility] [address], [address] [address] Phillip Clark MD [address] [place] [address] documented as of this encounter Procedures Procedure [...] on filedocumented in this encounter Care Teams Underwriter Mortgage Loan Relationship Specialty Start Date End Date Kamran Singh MD [id number] PCP - General 02/28/25 documented as of this encounter
--- OUTSIDE RECORDS SUMMARY | 2025-08-29 07:58 | XMS_ITS | Encounter Summary ---
Author Organization [facility] Address [address] [place] [address] Care Team Providers Care Salt Machine Operator Name Role Phone Kamran Singh MD Primary Care Provider [phone] Encounter Details Date Type Department Care Team (Late st Contact Info) Description 01/04/2025 Orders Only External Location [address] [place] [address] Provider, External Social History Tobacco Use Types [...] PM EST Appointment Cardiac Imaging [address] [place] [address] 07/20/2026 1:40 PM EST Office Visit [facility] [address], [address] [address] Phillip Clark MD [address] [place] [address] documented as of this encounter Procedures Procedure [...] on filedocumented in this encounter Care Teams Salt Machine Operator Relationship Specialty [place] [id number] PCP - General 02/28/25 documented as of this encounter
--- OUTSIDE RECORDS SUMMARY | 2025-08-29 07:58 | XMS_ITS | Encounter Summary ---
Author Organization [facility] Address [address] [place] [id number] Care Team Providers Care Health Educator Name Role Phone Kamran Singh MD Primary Care Provider [phone] Encounter Details Date Type Department Care Team [...] in a snf (including now)? No 06/15/2025 [facility] [...] or domestically in the last month? No 07/04/2025 4:41 PM EST Mycha rt, Generic documented as of this encounter Mental Status * Travel Screening Question Answer Entry Date Author Have you traveled intern[place] or domestically in the last month? No 07/04/2025 4:41 PM EST Mycha rt, Generic documented in this encounter Plan of Treatment Upcoming Encounters Date Type Department Care Team (Late st Contact Info) Description 07/20/2026 12:00 PM EST Appointment Cardiac Imaging [address] [place] [address] 07/20/2026 1:40 PM EST Office [facility] [address], [address] [place] [address] Phillip Clark MD [address] [facility] [address] [place] [phone] documented as of this encounter Visit Diagnoses Not on filedocumented in this encounter Additional Health Concerns Assessment Noted Time A fall risk assessment has been complete d for the patient 06/09/2025 12:15 PM EDT A Body Mass Index follow-up plan has been documented for the patient 06/20/2025 10:30 AM EDT documented as of this encounter Care Teams Health Educator Relationship Specialty [place] [id number] PCP - General 02/28/25 documented as of this encounter
--- OUTSIDE RECORDS SUMMARY | 2025-08-29 07:58 | XMS_ITS | Encounter Summary ---
Author Organization [facility] Address [address] [place] [address] Care Team Providers Care Rock Crusher Name Role Phone Kamran Singh MD Primary Care Provider [phone] Reason for Visit * Reason Onset Date Comments Medication Therapy Management 08/15/2025 Encounter Details Date Type Department Care Team (Late st Contact Info) Description 08/15/2025 Telephone [facility] [address] [place] [phone] Tiki Gutierrez, [place] [address] Medication Therapy Management Social History Tobacco Use [...] in a jail (including now)? No 06/15/2025 [facility] [...] medication(s): losartan Additional information: Tiki Gutierrez PharmD [facility] MTM Team documented in this encounter Plan of Treatment Upcoming Encounters Date Type Department Care Team (Chacorta white Contact Info) Description 07/20/2026 12:00 PM EST Appointment Cardiac Imaging [address] [place] [address] 07/20/2026 1:40 PM EST Office Visit [facility] [address], [address] [place] [address] Phillip Clark MD [address] [place] [address] documented as of this encounter Visit Diagnoses Not on filedocumented in this encounter Additional Health Concerns Assessment Noted Time A fall risk assessment has been complete d for the patient 06/09/2025 12:15 PM EDT A Body Mass Index follow-up plan has been documented for the patient 07/10/2025 11:44 AM EST documented as of this encounter Care Teams Rock Crusher Relationship Specialty [place] [id number] PCP - General 02/28/25 documented as of this encounter
--- OUTSIDE RECORDS SUMMARY | 2025-08-29 07:58 | XMS_ITS ---
Laboratory report Created on: August 02, 2025 JERSON AVILEZ : 1955 Sex: Male Author Name EBONI LUND Organization Unknown PROBLEMS Problems List Code Description RESULTS Laboratory Orders Date Order Code Test 2025-07-19 [id number] ACUTE HEPATITIS Laboratory Results Date LOINC Test Value Unit Reference Range Interpre tation 2025-07-19 55710-7 HEP A AB, IGM N NEGATIVE 2025-07-19 [id number] HBSAG SCREEN N NEGATIVE 2025-07-19 [id number] HEP B CORE AB, IGM N NEGATIVE 2025-07-19 [id number] HCV AB NR NON REACTIVE
--- OUTSIDE RECORDS SUMMARY | 2025-08-29 07:59 | XMS_ITS | Clinical Summary ---
Author Organization [facility] Address [address] [place] [id number] Care Team Providers Care Charging Manipulator Name Role Phone Kamran Singh MD Primary Care Provider [phone] Allergies Active Allergy Reactions Criticality Noted Date [...] Type Department Care Team Description 08/15/2025 Telephone [facility] [address] [place] [address] Tiki Gutierrez, PharmD Medication Therapy Management 07/07/2025 2:40 PM EST Office Visit [facility] Cardiothoracic [address], [address] [place] [address] Phillip Clark MD Ascending aortic aneurysm, unspecified whether ruptured (CMS/HCC) (Primary Dx) 07/07/2025 1:39 PM EST - 07/07/2025 11:59 PM EST Hospital Encounter [facility] Radiology [address], [address] [place] [address] Ascending aortic aneurysm, unspecified whether ruptured (CMS/HCC) Discharge Disposition: Home or Self Care 07/07/2025 Travel 07/04/2025 Travel 06/30/2025 Travel 06/20/2025 Travel 06/19/2025 Travel 06/18/2025 Travel 06/17/2025 Travel 06/16/2025 Travel 06/15/2025 Travel 06/14/2025 7:45 AM EDT - 06/14/2025 8:15 PM EDT Surgery [facility] [address] [place] [address] Phillip Clark MD Aortic valve replacement [44017 (CPT )] 06/14/2025 7:45 AM EDT Anesthesia Event [facility] [address] [place] [address] Jean Claude Staley MD Burns, Jonathon R, DO 06/14/2025 5:18 AM EDT - 06/20/2025 2:25 PM EDT Hospital Encounter [facility] Inpatient [address] [place] [address] Phillip Clark MD Other secondary hypertension (Primary Dx); Severe aortic regurgitation; S/P AVR Discharge Disposition: Home or Self Care 06/14/2025 Travel 06/09/2025 1:42 PM EDT - 06/09/2025 11:59 PM EDT Hospital Encounter [facility] Radiology [address], [address] [place] [address] Severe aortic regurgitation Discharge Disposition: Home or Self Care 06/09/2025 12:20 PM EDT Office Visit [facility] Cardiothoracic [address], [address] [place] [address] Phillip Clark MD Severe aortic regurgitation (Primary Dx) 06/09/2025 Travel 06/07/2025 8:30 AM EDT Pre-Admission Testing [facility] Pre-op Clinic [address], [address] [place] [address] 06/07/2025 Travel 06/02/2025 Travel from Last 3 [...] any time in the past 12 m [facility], were you homeless or living in a snf (including now)? No 06/15/2025 [facility] Utilities Answer Date Recorded In the past 12 months has th e [employer], gas, oil, or water company threatened to [...] PM EST Appointment Cardiac Imaging [address] [place] [address] 07/20/2026 1:40 PM EST Office Visit [facility] Cardi[facility] [address], [address] [place] [address] Phillip Clark MD [address] [place] [address] Health Maintenance Due Date Last Done Comments [...] 2005 UKY-Zoster Vaccines (1 of 2) 2005 [id number] Vaccine ( season) 2025 06/22/2022, 01/19/2022, 07/12/2021, [...] this topic Medical Devices Implanted Type Area Glove Parts Cutter Device Identifier Shelf Expiration Date Model / Serial / Lot Graft Ptch 6x6in 65w80mm [place] - [id number] Implanted:Qty: 1 on 06/14/2025 by Phillip Clark MD at [facility] N/A: Heart [employer]-[id number] / / Valve Atrial 25mm Rotatabl Cuf Std Ptfe - [id number] - [id number] Implanted:Qty: 1 on 06/14/2025 by Phillip Clark MD at [facility] N/A: Heart [id number] 03/28/2030 [id number] / [id number] / [id number] Procedures Procedure Name Priority Date/Time Associated Diagnosis [...] IMAGING PLACEHOLDER Routine 06/14/2025 8:32 AM EDT ND INSERT/PLACE FLOW DIRECT CATH Routine 06/14/2025 8:32 AM EDT ANESTHESIA ULTRASOUND GUIDED Routine 06/14/2025 8:32 AM EDT PB ANESTHESIA NON-TIMED PROCEDURE PLACEHOLDER Routine 06/14/2025 8:32 AM EDT ND AN CENTRAL LINE DOUBLE LUMEN Routine 06/14/2025 8:32 AM EDT PB ANESTHESIA PLACEHOLDER Routine 06/14/2025 8:16 AM EDT ND AN ELECTIVE ENDOTRACHEAL AIRWAY Routine 06/14/2025 8:16 AM EDT POCT ACT UNSOLICITED RESULTS Routine 06/14/2025 8:13 AM EDT POCT ARTERIAL BLOOD GAS GEM UNSOLICITED RESULTS Routine 06/14/2025 8:13 AM EDT PB ANESTHESIA NON-TIMED PROCEDURE PLACEHOLDER Routine 06/14/2025 8:08 AM EDT ND -AORT GRF W/CARD BYP [...] LAB COAGULATION METHOD 07/07/2025 3:17 PM EST [facility] INR 1.7(H) 0.9 - 1.1 LAB COAGULATION METHOD 07/07/2025 3:17 PM EST [facility] Blood Venous blood specimen / Unknown Venipuncture / Unknown 07/07/2025 1:35 PM EST 07/07/2025 1:35 PM EST Narrative [facility] - 07/07/2025 3:17 PM EST OPTIMAL INR RANGES FOR PATIENT ON ORAL ANTICOAGULANT THERAPY Prevention of venous thromboembolism INR 2.0 to 3.0 In patients with heart disease: Atrial fibrillation INR 2.0 to 3.0 Valvular heart disease INR 2.0 to 3.0 Tissue heart valves INR 2.0 to 3.0 Mechanical prosthetic valves INR 2.5 to 3.5 Prevention of recurrent UT INR 2.5 to 3.5 us Phillip Clark MD LAB BLOOD ORDERABLES Final R esult [facility] [address] [place] [address] * (ABNORMAL) CBC W/O Differential (07/07/2025 1:35 PM EST) Only the most recent of10 resultswithin the time period is included. WBC Count 6.93 3.70 - 10.30 10*3/uL LAB HEMATOLOGY METHOD 07/07/2025 2:47 PM EST [facility] RBC Count 4.43(L) 4.60 - 6.10 10*6/uL LAB HEMATOLOGY METHOD 07/07/2025 2:47 PM EST [facility] HGB 12.1(L) 13.7 - 17.5 g/dL LAB HEMATOLOGY METHOD 07/07/2025 2:47 PM EST [facility] HCT 38.1(L) 40.0 - 51.0 % LAB HEMATOLOGY METHOD 07/07/2025 2:47 PM EST [facility] Platelet Count 391(H) 155 - 369 10*3/uL LAB HEMATOLOGY METHOD 07/07/2025 2:47 PM EST [facility] MCV 86 79 - 98 fL LAB HEMATOLOGY METHOD 07/07/2025 2:47 PM EST [facility] MCH 27.3 26.0 - 32.0 pg LAB HEMATOLOGY METHOD 07/07/2025 2:47 PM EST [facility] MCHC 31.8 30.7 - 35.5 g/dL LAB HEMATOLOGY METHOD 07/07/2025 2:47 PM EST [facility] RDW 15.2(H) 11.5 - 14.5 % LAB HEMATOLOGY METHOD 07/07/2025 2:47 PM EST [facility] MPV 9.1 8.8 - 12.5 fL LAB HEMATOLOGY METHOD 07/07/2025 2:47 PM EST [facility] nRBC 0.0 <=0.0 per 100 WBCs LAB HEMATOLOGY METHOD 07/07/2025 2:47 PM EST [facility] Blood Venous blood specimen / Unknown Venipuncture / Unknown 07/07/2025 1:35 PM EST 07/07/2025 1:35 PM EST us Phillip Clark MD LAB BLOOD ORDERABLES Final R esult [facility] [address] [place] [address] * Basic Metabolic Panel, Plasma (07/07/2025 1:35 PM EST) Only the most recent of10 resultswithin the time period is included. Glucose, Plasma 87 74 - 99 mg/dL 07/07/2025 3:00 PM EST [facility] BUN, Plasma 21 8 - 23 mg/dL 07/07/2025 3:00 PM EST [facility] Creatinine, Plasma 0.99 0.70 - 1.20 mg/dL 07/07/2025 3:00 PM EST [facility] BUN/Creatinine Ratio 21 07/07/2025 3:00 PM EST [facility] Sodium, Plasma 136 136 - 145 mmol/L 07/07/2025 3:00 PM EST [facility] Potassium, Plasma 4.7 3.6 - 4.9 mmol/L 07/07/2025 3:00 PM EST [facility] Chloride, Plasma 99 97 - 107 mmol/L 07/07/2025 3:00 PM EST [facility] CO2, Plasma 26 22 - 29 mmol/L 07/07/2025 3:00 PM EST [facility] Anion Gap 11 6 - 16 mmol/L 07/07/2025 3:00 PM EST [facility] Total Calcium, Plasma 9.4 8.9 - 10.2 mg/dL 07/07/2025 3:00 PM EST [facility] eGFRcr 82.5 mL/min/1.7 3m*2 07/07/2025 3:00 PM EST [facility] Comment:Reported eGFRcr in m L/min/1.73m2 is based the CKD-EPI 2020 equation that does not use a race coefficient. Blood Venous blood specimen / Unknown Venipuncture / Unknown 07/07/2025 1:35 PM EST 07/07/2025 1:35 PM EST us Phillip Clark MD LAB BLOOD ORDERABLES Final R esult Performing Organization Address [facility] Co de Phone Number [facility] [address] [place] [address] * Phosphorus (06/20/2025 1:52 AM EDT) Only the most recent of8 resultswithin the time period is included. Phosphorus, Plasma 2.8 2.5 - 4.5 mg/dL 06/20/2025 2:23 AM EDT [facility] Blood Venous blood specimen / Unknown Venipuncture / Unknown 06/20/2025 1:52 AM EDT 06/20/2025 1:59 AM EDT Phillip Clark MD LAB BLOOD ORDERABLES Final R esult Performing Organization Address [facility] [place] [address] * Magnesium (06/20/2025 1:52 AM EDT) Only the most recent of10 resultswithin the time period is included. Magnesium, Plasma 2.2 1.9 - 2.4 mg/dL 06/20/2025 2:23 AM EDT [facility] Blood Venous blood specimen / Unknown Venipuncture / Unknown 06/20/2025 1:52 AM EDT 06/20/2025 1:59 AM EDT Phillip Clark MD LAB BLOOD ORDERABLES Final R esult Performing Organization Address City/[facility] Co de Phone Number [facility] [address] [place] [address] * PERIPHERAL IV (SMARTFORM LINK) (06/20/2025 1:47 [...] QTC Interval 478 ms MUSE ECG P [place] 43 degrees MUSE ECG R [place] -30 degrees MUSE ECG T Wave [place] 36 degrees MUSE ECG Diagnosis Poor data quality, interpretation may be adversely affected MUSE ECG Diagnosis Sinus rhythm with premature supraventricular complexes and with occasional premature ventricular complexes MUSE ECG Diagnosis Left axis deviation MUSE ECG Diagnosis Poor R-wave progression MUSE ECG Diagnosis Abnormal ECG MUSE ECG Diagnosis Recommend repeat ECG MUSE ECG Diagnosis MUSE ECG Diagnosis Confirmed by Aman Coe ([id number]) on 06/19/2025 1:33:10 PM MUSE ECG 06/19/2025 12:4 9 PM EDT 06/19/2025 1:33 PM EDT us Brabara MARIE ECG ORDERABLES Final Resul t MUSE [...] - 99 mg/dL 06/16/2025 7:41 PM EDT [facility] BUN, Plasma 15 8 - 23 mg/dL 06/16/2025 7:41 PM EDT [facility] Creatinine, Plasma 0.79 0.70 - 1.20 mg/dL 06/16/2025 7:41 PM EDT [facility] BUN/Creatinine Ratio 19 06/16/2025 7:41 PM EDT [facility] Sodium, Plasma 134(L) 136 - 145 mmol/L 06/16/2025 7:41 PM EDT [facility] Potassium, Plasma 3.8 3.6 - 4.9 mmol/L 06/16/2025 7:41 PM EDT [facility] Chloride, Plasma 98 97 - 107 mmol/L 06/16/2025 7:41 PM EDT [facility] CO2, Plasma 25 22 - 29 mmol/L 06/16/2025 7:41 PM EDT [facility] Anion Gap 11 6 - 16 mmol/L 06/16/2025 7:41 PM EDT [facility] Total Calcium, Plasma 8.4(L) 8.9 - 10.2 mg/dL 06/16/2025 7:41 PM EDT [facility] Phosphorus, Plasma 2.2(L) 2.5 - 4.5 mg/dL 06/16/2025 7:41 PM EDT [facility] Albumin, Plasma 3.4(L) 3.5 - 5.2 g/dL 06/16/2025 7:41 PM EDT [facility] eGFRcr 96.2 mL/min/1.7 3m*2 06/16/2025 7:41 PM EDT [facility] Comment:Reported eGFRcr in m L/min/1.73m2 is based the CKD-EPI 2020 equation that does not use a race coefficient. Blood Venous blood specimen / Unknown Venipuncture / Unknown 06/16/2025 5:35 PM EDT 06/16/2025 7:12 PM EDT us Phillip Clark MD LAB BLOOD ORDERABLES Final R esult [facility] [address] [place] [address] * ND CRITICAL CARE, E/M 30-74 MINUTES [...] for testing. Comment 06/16/2025 8:45 AM EDT [employer] [facility] Studio Artist ID Fariba Blanton 025 8:45 AM EDT [employer] [facility] Device ID [id number] 06/16/2025 8:45 AM EDT [employer] [facility] Specimen Type POC Arterial 06/16/2025 8:45 AM EDT [employer] [facility] Blood Arterial blood specimen / Unknown 06/16/2025 8:40 AM EDT 06/16/2025 8:45 AM EDT us Phillip Clark MD LAB POINT OF CARE TE ST DOCKED DEVICE UNSOLICITED RESULTS Final Result [facility] [address] [place] [id number] * XR Abdomen 1 View (06/16/2025 1:20 [...] LAB HEMATOLOGY METHOD 06/16/2025 12:58 AM EDT [facility] pCO2, Arterial 41 32 - 45 mmHg LAB HEMATOLOGY METHOD 06/16/2025 12:58 AM EDT [facility] pO2, Arterial 65(L) >80 mmHg LAB HEMATOLOGY METHOD 06/16/2025 12:58 AM EDT [facility] SO2, Measured, Arterial 94 94 - 98 % LAB HEMATOLOGY METHOD 06/16/2025 12:58 AM EDT [facility] Base Excess, Arterial 2.5 -2.0 - 3.0 mmol/L LAB HEMATOLOGY METHOD 06/16/2025 12:58 AM EDT [facility] Bicarbonate, Calculated, Arterial 27(H) 22 - 26 mmol/L LAB HEMATOLOGY METHOD 06/16/2025 12:58 AM EDT [facility] Hematocrit, Whole Blood 37.9(L) 40.0 - 51.0 % LAB HEMATOLOGY METHOD 06/16/2025 12:58 AM EDT [facility] Sodium, Whole Blood 133(L) 136 - 145 mmol/L LAB HEMATOLOGY METHOD 06/16/2025 12:58 AM EDT [facility] Potassium, Whole Blood 3.4(L) 3.6 - 4.9 mmol/L LAB HEMATOLOGY METHOD 06/16/2025 12:58 AM EDT [facility] Chloride, Whole Blood 100 97 - 107 mmol/L LAB HEMATOLOGY METHOD 06/16/2025 12:58 AM EDT [facility] Glucose, Whole Blood 124(H) 74 - 99 mg/dL LAB HEMATOLOGY METHOD 06/16/2025 12:58 AM EDT [facility] Ionized Calcium, Whole Blood 4.3(L) 4.6 - 5.1 mg/dL LAB HEMATOLOGY METHOD 06/16/2025 12:58 AM EDT [facility] Lactate, Arterial, Whole Blood 1.0 0.5 - 1.6 mmol/L LAB HEMATOLOGY METHOD 06/16/2025 12:58 AM EDT [facility] Blood Arterial blood specimen / Unknown Arterial Puncture / Unknown 06/16/2025 12:36 AM EDT 06/16/2025 12:55 AM EDT us Phillip Clark MD LAB BLOOD ORDERABLES Final R esult [facility] [address] [place] [address] * ND CRITICAL CARE, E/M 30-74 MINUTES [...] LAB HEMATOLOGY METHOD 06/15/2025 8:47 AM EDT [facility] RBC Count 4.60 4.60 - 6.10 10*6/uL LAB HEMATOLOGY METHOD 06/15/2025 8:47 AM EDT [facility] HGB 12.8(L) 13.7 - 17.5 g/dL LAB HEMATOLOGY METHOD 06/15/2025 8:47 AM EDT [facility] HCT 39.4(L) 40.0 - 51.0 % LAB HEMATOLOGY METHOD 06/15/2025 8:47 AM EDT [facility] Platelet Count 120(L) 155 - 369 10*3/uL LAB HEMATOLOGY METHOD 06/15/2025 8:47 AM EDT [facility] MCV 86 79 - 98 fL LAB HEMATOLOGY METHOD 06/15/2025 8:47 AM EDT [facility] MCH 27.8 26.0 - 32.0 pg LAB HEMATOLOGY METHOD 06/15/2025 8:47 AM EDT [facility] MCHC 32.5 30.7 - 35.5 g/dL LAB HEMATOLOGY METHOD 06/15/2025 8:47 AM EDT [facility] RDW 15.5(H) 11.5 - 14.5 % LAB HEMATOLOGY METHOD 06/15/2025 8:47 AM EDT [facility] MPV 10.6 8.8 - 12.5 fL LAB HEMATOLOGY METHOD 06/15/2025 8:47 AM EDT [facility] nRBC 0.0 <=0.0 per 100 WBCs LAB HEMATOLOGY METHOD 06/15/2025 8:47 AM EDT [facility] Differential Type Automated LAB HEMATOLOGY METHOD 06/15/2025 8:47 AM EDT [facility] Neutrophils % 84 % LAB HEMATOLOGY METHOD 06/15/2025 8:47 AM EDT [facility] Lymphocytes % 5 % LAB HEMATOLOGY METHOD 06/15/2025 8:47 AM EDT [facility] Monocytes % 10 % LAB HEMATOLOGY METHOD 06/15/2025 8:47 AM EDT [facility] Eosinophils % 0 % LAB HEMATOLOGY METHOD 06/15/2025 8:47 AM EDT [facility] Basophils % 0 % LAB HEMATOLOGY METHOD 06/15/2025 8:47 AM EDT [facility] Immature Granulocytes % 1 % LAB HEMATOLOGY METHOD 06/15/2025 8:47 AM EDT [facility] Neutrophils Absolute 10.59(H) 1.60 - 6.10 10*3/uL LAB HEMATOLOGY METHOD 06/15/2025 8:47 AM EDT [facility] Lymphocytes Absolute 0.60(L) 1.20 - 3.90 10*3/uL LAB HEMATOLOGY METHOD 06/15/2025 8:47 AM EDT [facility] Monocytes Absolute 1.29(H) 0.30 - 0.90 10*3/uL LAB HEMATOLOGY METHOD 06/15/2025 8:47 AM EDT [facility] Eosinophils Absolute 0.00 0.00 - 0.50 10*3/uL LAB HEMATOLOGY METHOD 06/15/2025 8:47 AM EDT [facility] Basophils Absolute 0.02 0.00 - 0.10 10*3/uL LAB HEMATOLOGY METHOD 06/15/2025 8:47 AM EDT [facility] Immature Granulocytes Absolute 0.06 0.00 - 0.06 10*3/uL LAB HEMATOLOGY METHOD 06/15/2025 8:47 AM EDT [facility] Blood Venous blood specimen / Unknown Venipuncture / Unknown 06/15/2025 8:18 AM EDT 06/15/2025 8:34 AM EDT Narrative [facility] - 06/15/2025 8:47 AM EDT Therapeutic decision making should be based on absolute values, rather than percentages. us Phillip Clark MD LAB BLOOD ORDERABLES Final R esult Performing Organization Address [facility] [place] [address] * Ionized calcium, whole blood (06/15/2025 6:40 AM EDT) Ionized Calcium, Whole Blood 4.6 4.6 - 5.1 mg/dL LAB HEMATOLOGY METHOD 06/15/2025 6:50 AM EDT [facility] Blood Arterial blood specimen / Unknown Venipuncture / Unknown 06/15/2025 6:40 AM EDT 06/15/2025 6:48 AM EDT Phillip Clark MD LAB BLOOD ORDERABLES Final R esult Performing Organization Address [facility] [place] [address] * ND CRITICAL CARE, ADDL 30 MIN, [...] LAB HEMATOLOGY METHOD 06/15/2025 8:17 AM EDT [facility] Neutrophils % 85 % LAB HEMATOLOGY METHOD 06/15/2025 8:17 AM EDT [facility] Lymphocytes % 4 % LAB HEMATOLOGY METHOD 06/15/2025 8:17 AM EDT [facility] Monocytes % 10 % LAB HEMATOLOGY METHOD 06/15/2025 8:17 AM EDT [facility] Eosinophils % 0 % LAB HEMATOLOGY METHOD 06/15/2025 8:17 AM EDT [facility] Basophils % 0 % LAB HEMATOLOGY METHOD 06/15/2025 8:17 AM EDT [facility] Immature Granulocytes % 1 % LAB HEMATOLOGY METHOD 06/15/2025 8:17 AM EDT [facility] Immature Granulocytes Absolute 0.05 0.00 - 0.06 10*3/uL LAB HEMATOLOGY METHOD 06/15/2025 8:17 AM EDT [facility] Neutrophils Absolute 9.28(H) 1.60 - 6.10 10*3/uL LAB HEMATOLOGY METHOD 06/15/2025 8:17 AM EDT [facility] Lymphocytes Absolute 0.45(L) 1.20 - 3.90 10*3/uL LAB HEMATOLOGY METHOD 06/15/2025 8:17 AM EDT [facility] Monocytes Absolute 1.14(H) 0.30 - 0.90 10*3/uL LAB HEMATOLOGY METHOD 06/15/2025 8:17 AM EDT [facility] Basophils Absolute 0.02 0.00 - 0.10 10*3/uL LAB HEMATOLOGY METHOD 06/15/2025 8:17 AM EDT [facility] Eosinophils Absolute 0.00 0.00 - 0.50 10*3/uL LAB HEMATOLOGY METHOD 06/15/2025 8:17 AM EDT [facility] Blood Venous blood specimen / Unknown Venipuncture / Unknown 06/15/2025 12:20 AM EDT 06/15/2025 12:26 AM EDT Phillip Clark MD LAB BLOOD ORDERABLES Final R esult Performing Organization Address City/[facility] Co de Phone Number [facility] [address] [place] [address] * (ABNORMAL) Hemoglobin (06/15/2025 12:20 AM EDT) Only the most recent of2 resultswithin the time period is included. HGB 13.6(L) 13.7 - 17.5 g/dL LAB HEMATOLOGY METHOD 06/15/2025 12:36 AM EDT [facility] Blood Venous blood specimen / Unknown Venipuncture / Unknown 06/15/2025 12:20 AM EDT 06/15/2025 12:26 AM EDT Phillip Clark MD LAB BLOOD ORDERABLES Final R esult Performing Organization Address City/[facility] Co de Phone Number [facility] [address] [place] [address] * Hematocrit (06/15/2025 12:20 AM EDT) Only the most recent of2 resultswithin the time period is included. [facility] [place] HCT 41.0 40.0 - 51.0 % LAB HEMATOLOGY METHOD 06/15/2025 12:36 AM EDT [facility] Blood Venous blood specimen / Unknown Venipuncture / Unknown 06/15/2025 12:20 AM EDT 06/15/2025 12:26 AM EDT Phillip Clark MD LAB BLOOD ORDERABLES Final [facility] Performing Organization Address City/[facility] Co de Phone Number [facility] [address] [place] [address] * Potassium, Plasma (06/15/2025 12:20 AM EDT) Only the most recent of3 resultswithin the time period is included. Potassium, Plasma 4.5 3.6 - 4.9 mmol/L 06/15/2025 12:51 AM EDT [facility] Blood Venous blood specimen / Unknown Venipuncture / Unknown 06/15/2025 12:20 AM EDT 06/15/2025 12:26 AM EDT us Phillip Clark MD LAB BLOOD ORDERABLES Final R esult [facility] [address] [place] [address] * ND CRITICAL CARE, E/M 30-74 MINUTES [...] LAB HEMATOLOGY METHOD 06/14/2025 3:24 PM EDT [facility] pCO2, Mixed Venous 47 40 - 55 mmHg LAB HEMATOLOGY METHOD 06/14/2025 3:24 PM EDT [facility] pO2, Mixed Venous 54(H) 25 - 40 mmHg LAB HEMATOLOGY METHOD 06/14/2025 3:24 PM EDT [facility] SO2, Measured, Mixed Venous 84(H) 65 - 80 % LAB HEMATOLOGY METHOD 06/14/2025 3:24 PM EDT [facility] Bicarbonate, Calculated, Mixed Venous 22 22 - 26 mmol/L LAB HEMATOLOGY METHOD 06/14/2025 3:24 PM EDT [facility] Base Excess, Mixed Venous -4.7(L) -2.0 - 3.0 mmol/L LAB HEMATOLOGY METHOD 06/14/2025 3:24 PM EDT [facility] Hematocrit, Whole Blood 43.0 40.0 - 51.0 % LAB HEMATOLOGY METHOD 06/14/2025 3:24 PM EDT [facility] Sodium, Whole Blood 139 136 - 145 mmol/L LAB HEMATOLOGY METHOD 06/14/2025 3:24 PM EDT [facility] Potassium, Whole Blood 3.7 3.6 - 4.9 mmol/L LAB HEMATOLOGY METHOD 06/14/2025 3:24 PM EDT [facility] Chloride, Whole Blood 110(H) 97 - 107 mmol/L LAB HEMATOLOGY METHOD 06/14/2025 3:24 PM EDT [facility] Ionized Calcium, Whole Blood 4.6 4.6 - 5.1 mg/dL LAB HEMATOLOGY METHOD 06/14/2025 3:24 PM EDT [facility] Glucose, Whole Blood 149(H) 74 - 99 mg/dL LAB HEMATOLOGY METHOD 06/14/2025 3:24 PM EDT [facility] Oxyhemoglobin, Mixed Venous, Whole Blood 81.9(H) 40.0 - 70.0 % LAB HEMATOLOGY METHOD 06/14/2025 3:24 PM EDT [facility] Hemoglobin Reduced, Mixed Venous, Whole Blood 16.1 % LAB HEMATOLOGY METHOD 06/14/2025 3:24 PM EDT [facility] Total Hemoglobin, Mixed Venous, Whole Blood 14.0 13.7 - 17.5 g/dL LAB HEMATOLOGY METHOD 06/14/2025 3:24 PM EDT [facility] Blood Mixed venous blood specimen / Unknown Venipuncture / Unknown 06/14/2025 3:00 PM EDT 06/14/2025 3:23 PM EDT us Phillip Clark MD LAB BLOOD ORDERABLES Final R esult Performing Organization Address [facility] Co de Phone Number [facility] [address] [place] [address] * Eli auris Surveillance by PCR (06/14/2025 2:37 PM EDT) Eli auris PCR Result Not Detected Not Detected 06/15/2025 12:[address] [facility] Swab (Axilla and Groin) Non-blood Collection / Unknown 06/14/2025 2:37 PM EDT 06/14/2025 3:10 PM EDT Narrative [facility] - 06/15/2025 12:46 PM EDT This PCR assay was developed and its performance characteristics determined by [facility] as appropriate for clinical purposes. This assay has not been cleared or approved by the FDA, but is performed in a CLIA regulated laboratory that is qualified to perform high-complexity testing. Phillip Clark MD LAB MICROBIOLOGY - GENERAL O RDERABLES Final Result Performing Organization Address [facility] Co de Phone Number [facility] [address] [place] [address] * Multi Drug Resistance Test (06/14/2025 2:37 PM EDT) Pathologist [facility] Culture No growth at day 1 06/15/2025 4:[address] [facility] Swab (Nares and Smita Rectal) Non-blood Collection / Unknown 06/14/2025 2:37 PM EDT 06/14/2025 3:10 PM EDT Narrative [facility] - 06/15/2025 4:03 PM EDT This test was developed and its performance characteristics determined by the [facility]. Although the media is FDA-approved, it is not FDA-approved for all specimen types submitted. The FDA has determined that such clearance or approval is not necessary. This test is used for surveillance purposes. It should not be regarded as investigational or for research. The [facility] is certified under the Clinical Laboratory Improvement Amendments of 1988 (CLIA-88) as qualified to perform high complexity clinical laboratory testing. us Phillip Clark MD LAB MICROBIOLOGY - GENERAL O RDERABLES Final Result Performing Organization Address [facility] Co de Phone Number [facility] [address] [place] [address] * APTT (06/14/2025 2:36 PM EDT) Only the most recent of2 resultswithin the time period is included. aPTT 29 25 - 35 sec LAB COAGULATION METHOD 06/14/2025 4:11 PM EDT [facility] Blood Venous blood specimen / Unknown Venipuncture / Unknown 06/14/2025 2:36 PM EDT 06/14/2025 3:18 PM EDT us Phillip Clark MD LAB BLOOD ORDERABLES Final R esult Performing Organization Address [facility] [place] [address] * PB POINT OF CARE IMAGING PLACEHOLDER [...] mcg/kg/min) RV: same as baseline Aortic valve: [place] valve replaced by mechanical valve. New valve [...] 3 mmol/L 06/14/2025 2:02 PM EDT [facility] HCO3, Arterial 21.0(L) 22 - 26 mmol/L 06/14/2025 2:02 PM EDT [facility] Total Hemoglobin, Arterial, Whole Blood 14.5 13.7 - 17.5 g/dL 06/14/2025 2:02 PM EDT [facility] Hematocrit, Arterial 44.0 40 - 51.0 % 06/14/2025 2:02 PM EDT [facility] Sodium, Arterial 136 136 - 145 mmol/L 06/14/2025 2:02 PM EDT [facility] Potassium, Arterial 3.4(L) 3.6 - 4.9 mmol/L 06/14/2025 2:02 PM EDT [facility] Chloride, Whole Blood 105 97 - 107 mmol/L 06/14/2025 2:02 PM EDT [facility] Glucose, Arterial 138(H) 74 - 99 mg/dL 06/14/2025 2:02 PM EDT [facility] Ionized Calcium, Arterial 4.9 4.6 - 5.1 mg/dL 06/14/2025 2:02 PM EDT [facility] Lactate, Arterial 4.2(H) 0.5 - 1.6 mmol/L 06/14/2025 2:02 PM EDT [facility] Body Temperature 37.0 Celsius 06/14/2025 2:02 PM EDT [facility] pH, Temp Corrected, Arterial 7.35 7.31 - 7.42 06/14/2025 2:02 PM EDT [facility] pCO2, Temp Corrected, Arterial 38 32 - 45 mm Hg 06/14/2025 2:02 PM EDT [facility] pO2, Temp Corrected, Arterial 376 >80 mm Hg 06/14/2025 2:02 PM EDT [facility] Studio Artist ID Ricki Zamarripa 06/14/2025 2:02 PM EDT [facility] Blood Whole blood specimen / Unknown 06/14/2025 2:00 PM EDT 06/14/2025 2:02 PM EDT us Phillip Clark MD LAB POINT OF CARE TE ST DOCKED DEVICE UNSOLICITED RESULTS Final Result [facility] [address] [place] [address] * POCT ACT (06/14/2025 12:43 PM EDT) Only the most recent of7 resultswithin the time period is included. ACT+ (HIGH RANGE) 98 68 - 600 Seconds 06/14/2025 12:49 PM EDT [facility] Studio Artist ID Vick Dupont 06/14/2025 12:49 PM EDT [facility] ACT Device ID [id number] 06/14/2025 12:49 PM EDT [facility] Comment 06/14/2025 12:49 PM EDT [facility] Comment: ACT performed by [...] Final Result Performing Organization Address City/State/[facility] Co de Phone Number [facility]ALTH[facility] [address] LAB [address] [place] [address] * (ABNORMAL) QPLUS (06/14/2025 11:55 AM EDT) [facility] Clot Time 06/14/2025 12:12 PM EDT HEALTHCARE [...] Seconds 06/14/2025 12:12 PM EDT [facility] Studio Artist ID Ricki Zamarripa 06/14/2025 12:12 PM EDT [facility] Device ID [id number] 06/14/2025 12:12 PM EDT [facility] Whole Blood 06/14/2025 11:5 5 AM EDT 06/14/2025 12:12 PM EDT Narrative [facility] - 06/14/2025 12:[address]: No Clot Detected us Phillip Clark MD LAB POINT OF CARE TE ST DOCKED DEVICE UNSOLICITED RESULTS Final Result [facility] [address] [place] [address] * Surgical Pathology Exam (06/14/2025 10:18 AM EDT) Case Report Surgical Pathology Case: [id number] Authorizing Provider: Phillip Clark MD Collected: 06/14/2025 1018 Ordering Location: [facility] Received: 06/14/2025 1413 Pathologist: Beth Lake MD Specimen: Heart, aortic valve leaflets 06/15/2025 11:44 AM EDT [facility] Final Diagnosis A. AORTIC VALVE LEAFLETS, REPLACEMENT: - FIBROSIS AND MYXOID DEGENERATION. 06/15/2025 11:44 AM EDT [facility] at 1144 EDT Clinical Information Severe aortic regurgitation [I35.1] 06/15/2025 11:44 AM EDT [facility] Gross Description A. AORTIC VALVE LEAFLETS Received fresh and placed in formalin labeled aortic valve leaflets are 2 white-montez soft cardiac leaflets ranging in size from 2.5-4.0 cm in greatest dimension. [employer] sections are submitted in cassette A1. Cold Time: 3h 55m April T Santos 06/15/2025 11:44 AM EDT [facility] Tissue Heart structure / Unknown 06/14/2025 10:18 AM EDT 06/14/2025 2:13 PM EDT Comment:Pre-op diagnosis: Severe aortic regurgitation [I35.1] us Phillip Clark MD LAB PATHOLOGY ORDERABLES Fin al Result [facility] [address] [place] [address] * ND AN CENTRAL LINE DOUBLE LUMEN, PB ANESTHESIA NON-TIMED PROCEDURE PLACEHOLDER, ANESTHESIA ULTRASOUND GUIDED, ND INSERT/PLACE FLOW DIRECT CATH, PB POINT OF [...] MD ANESTHESIA ORDERABLES Final Resu lt * ND AN ELECTIVE ENDOTRACHEAL AIRWAY, PB ANESTHESIA PLACEHOLDER [...] MD - 06/14/2025 8:08 AM EDT Jean lCaude Staley MD 06/14/2025 10:14 AM Arterial Line: [...] ORDERABL ES Final Result Performing Organization Address [facility] de Phone Number BLOOD BANK [address] [place] [address], [place] * Type & Screen, 30 Days [...] ORDERABL ES Final Result B[facility] B[facility] [address] * (ABNORMAL) Hemoglobin A1c (06/09/2025 1:39 PM EDT) Hemoglobin A1c 5.7(H) <5.7 % 06/09/2025 6:09 PM EDT [facility] Blood Venous blood specimen / Unknown Venipuncture / Unknown 06/09/2025 1:39 PM EDT 06/09/2025 1:40 PM EDT Narrative [facility] - 06/09/2025 6:09 PM EDT HA1C Interpretive Data: Diagnosis of Diabetes: Diabetic > or = 6.5% Pre-diabetic 5.7 to 6.4% Non-diabetic < or = 5.6% Glycemic Targets for Type I and Type II Diabetics: Non- Adults <7.0% Adults <6.0% Children and Adolescents <7.5% Source: [place] [employer]. Standards of medical care in diabetes,2017. Diabetes Care.2017:40 (suppl 1):S1-S135. Phillip Clark MD LAB BLOOD ORDERABLES Final R esult [facility] [address] [place] [address] * Comprehensive Metabolic Panel, Plasma (06/09/2025 1:39 PM EDT) Glucose, Plasma 86 74 - 99 mg/dL 06/09/2025 3:57 PM EDT [facility] BUN, Plasma 15 8 - 23 mg/dL 06/09/2025 3:57 PM EDT [facility] Creatinine, Plasma 0.85 0.70 - 1.20 mg/dL 06/09/2025 3:57 PM EDT [facility] BUN/Creatinine Ratio 18 06/09/2025 3:57 PM EDT [facility] Sodium, Plasma 139 136 - 145 mmol/L 06/09/2025 3:57 PM EDT [facility] Potassium, Plasma 4.7 3.6 - 4.9 mmol/L 06/09/2025 3:57 PM EDT [facility] Chloride, Plasma 107 97 - 107 mmol/L 06/09/2025 3:57 PM EDT [facility] CO2, Plasma 24 22 - 29 mmol/L 06/09/2025 3:57 PM EDT [facility] Anion Gap 8 6 - 16 mmol/L 06/09/2025 3:57 PM EDT [facility] Total Calcium, Plasma 9.0 8.9 - 10.2 mg/dL 06/09/2025 3:57 PM EDT [facility] Total Protein 6.6 6.3 - 7.9 g/dL 06/09/2025 3:57 PM EDT [facility] Albumin, Plasma 4.2 3.5 - 5.2 g/dL 06/09/2025 3:57 PM EDT [facility] AST, Plasma 23 10 - 50 U/L 06/09/2025 3:57 PM EDT [facility] ALT, Plasma 23 10 - 50 U/L 06/09/2025 3:57 PM EDT [facility] Alkaline Phosphatase, Plasma 66 40 - 115 U/L 06/09/2025 3:57 PM EDT [facility] Total Bilirubin, Plasma 0.8 0.2 - 1.1 mg/dL 06/09/2025 3:57 PM EDT [facility] eGFRcr 94.1 mL/min/1.7 3m*2 06/09/2025 3:57 PM EDT [facility] Comment:Reported eGFRcr in m L/min/1.73m2 is based the CKD-EPI 2020 equation that does not use a race coefficient. 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
[2025-08-29 08:11] LABS: PHA INR Fingerstick 2.1 (0.9-1.1)
== END 2025-08-29 08:12 ==
LOC: ACC 07:55
PROVIDERS: PCP Family Medicine; Visit Provider Nurse Practitioner
DX: Z79.01 Long term (current) use of anticoagulants (principal); Z95.2 Presence of prosthetic heart valve
CPT/HCPCS: 85610; 99211; G0463